=== PATIENT | male | born 1970 | race Two or more races ===

== ENCOUNTER 2021-10-10 13:03 | Outpatient (CLI) | payer MEDICARE, SELFPAY ==
--- NOTE | ~2021-10-10 | US_ITS ---
EXAMINATION: US scrotum doppler EXAM DATE: 10/10/2021 13:39 INDICATION: Testicular lump middle of right and left. History large B-cell lymphoma 2018. Pain at mob ile area. TECHNIQUE: Multiple grayscale and Doppler images of the testicles and scrotum were obtained bilateral ly. Comparison is made to prior examination from 04/10/17. FINDINGS: Right testicle measures 3.4 x 2.6 x 1.9 cm and is morphologically normal. Low resistance Doppler kalpana w confirmed. The epididymis is unremarkable. There is no hydrocele or varicocele. Left testicle measures 2.4 x 2.8 x 2.2 cm and is morphologically normal. Low resistance Doppler flow confirmed. There is a left epididymal cyst measuring 1.6 x 2.6 x 1.1 cm, could be the same epididyma l cyst identified in 2017. There is no hydrocele or varicocele. IMPRESSION: 1. Left epididymal cyst. 2. No suspicious findings. Reviewed, dictated and finalized at location A. 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
== END 2021-10-10 13:04 | disposition home or self-care (01) ==
PROVIDERS: PCP Family Medicine; Visit Provider Internal Medicine Hematology & Oncology
DX: N50.89 Other specified disorders of the male genital organs (principal); N50.3 Cyst of epididymis
CPT/HCPCS: 76870; 93976

== ENCOUNTER 2022-02-13 15:35 | Outpatient (CLI) | payer MEDICARE, SELFPAY ==
--- NOTE | ~2022-02-13 | CT_ITS ---
EXAMINATION: CT chest abdomen pelvis wo con DATE: 02/13/2022 16:05 INDICATION: Non-Hodgkin's lymphoma TECHNIQUE: Computed tomography (CT) of the chest, abdomen, and pelvis was performed without intraveno us contrast. Automated exposure control and iterative reconstruction technique were employed. Exam do se: 1953.52 mGy-cm total exam DLP. COMPARISON: 03/02/2019 CT chest abdomen pelvis FINDINGS: CHEST CT: There is extensive dramatic interval abnormal changes throughout both lungs since 03/02/2019. There is patchy prominent septal soft tissue thickening, particularly in the upper lobes, also peripheral low er lobes, with areas of bronchiectasis and honeycombing in the upper lobes and middle lobe. Up to 11 mm cross-section diameter left superior mediastinal lymph node and scattered additional none nlarged mediastinal lymph nodes, very possibly reactive. Normal caliber of the thoracic aorta. Normal heart size. Moderate sliding hiatal hernia. ABDOMEN/PELVIS CT: The liver, contracted gallbladder and bile ducts are unremarkable. The spleen is absent, likely surgi selina. No pancreatic mass lesion, calcification or ductal dilatation. Normal morphology of the adrenal glands. No renal mass lesion is detected. There is a pinpoint mid renal nonobstructing calculus in the 4 mm lower pole nonobstructing calculus on the left. No ureteral calculus or hydroureteronephrosis is noted on either side. Normal caliber of the abdominal aorta. No intraperitoneal or retroperitoneal or pelvic mass lesion or adenopathy or ascites is detected. The urinary bladder and prostate gland are unremarkable. Diverticulosis of sigmoid and descending colon; no CT evidence of diverticulitis. Normal appendix. No bowel obstruction, bowel wall thickening, pneumatosis or intraperitoneal free air Bilateral L5 pars interarticularis defects with associated grade 1 anterolisthesis at L5-S1. Severe d egenerative disc disease at L5-S1. No suspicious osteolytic or osteosclerotic lesions are identified.. IMPRESSION: New patchy extensive interstitial changes, bronchiectasis and honeycombing scattered thr oughout the lungs since 03/02/2019 11 mm cross-section diameter left superior mediastinal lymph node, possibly reactive. No thoracic, ax illary, abdominal, pelvic or inguinal lymphadenopathy is noted otherwise Status post splenectomy Diverticulosis of the left colon; no CT evidence of diverticulitis Bilateral L5 pars intra-articular is defects with associated grade 1 anterolisthesis and severe degen erative disc disease at L5-S1 Reviewed, dictated and finalized at Location A. Reviewed, dictated and finalized at location A. IMPRESSION: New patchy extensive interstitial changes, bronchiectasis and ligia ycombing scattered throughout the lungs since 03/02/2019 11 mm cross-section diameter left superior mediastinal lymph node, possibly vanesa ctive. No thoracic, axillary, abdominal, pelvic or inguinal lymphadenopathy is noted otherwise Status post splenectomy Diverticulosis of the left colon; no CT evidence of diverticulitis Bilateral L5 pars intra-articular is defects with associated grade 1 anterolist hesis and severe degenerative disc disease at L5-S1
== END 2022-02-13 15:36 | disposition home or self-care (01) ==
LOC: ANHIMG 15:38
PROVIDERS: PCP Family Medicine; Visit Provider Internal Medicine Hematology & Oncology
DX: C85.90 Non-Hodgkin lymphoma, unspecified, unspecified site (principal); R91.8 Other nonspecific abnormal finding of lung field; Z90.81 Acquired absence of spleen; K57.90 Diverticulosis of intestine, part unspecified, without perforation or abscess without bleeding; M43.16 Spondylolisthesis, lumbar region; M51.37 Other intervertebral disc degeneration, lumbosacral region
CPT/HCPCS: 36415; 71250; 74176; 86684; 86706

== ENCOUNTER 2022-02-13 16:21 | Outpatient (CLI) | payer MEDICARE, SELFPAY ==
[2022-02-13 18:10] LABS: Hepatitis B Surface Anti Res Positive
== END 2022-02-13 16:22 | disposition home or self-care (01) ==
LOC: ANHLAB 16:26
PROVIDERS: PCP Family Medicine
DX: Z94.81 Bone marrow transplant status (principal)
CPT/HCPCS: 36415; 86684; 86706

== ENCOUNTER 2022-08-14 14:45 | Outpatient (CLI) | payer MEDICARE, SELFPAY ==
--- NOTE | ~2022-08-14 | CT_ITS ---
EXAMINATION: CT chest abdomen pelvis w con DATE: 08/14/2022 15:26 INDICATION: Diffuse large B-cell lymphoma TECHNIQUE: Transaxial computed tomographic images of the chest, abdomen, and pelvis were obtained aft er the administration of 100 cc of Omnipaque 350 intravenous contrast. The dose-length product (DLP) was 2024.54 mGy-cm. Automated exposure control and iterative reconstruction technique were employed. COMPARISON: 02/13/2022, 03/02/2019 FINDINGS: CHEST CT: Again seen are widespread groundglass and reticular opacities with an upper lung zone predominance. T here is a stable area of honeycombing anteromedially in the left upper lobe. No pleural effusion or p neumothorax. A mildly enlarged prevascular lymph node anterior to the aortic arch is stable in size. The heart size is normal. There is a small sliding hiatal hernia. ABDOMEN/PELVIS CT: There is a moderate-sized sliding hiatal hernia. The liver, pancreas, gallbladder, and adrenal glands are normal. Splenectomy changes are noted. The kidneys are unremarkable. No pathologically enlarged abdominal or pelvic lymph nodes are identified. There is no free intraperitoneal gas or evidence of b owel obstruction. The appendix is normal. Colonic diverticulosis is present without evidence of diver ticulitis. There are bilateral L5 pars defects with grade 1 anterolisthesis of L5 on S1. IMPRESSION: 1. Stable interstitial lung disease, possibly related to chemotherapy. 2. Stable mildly enlarged prevascular lymph node anterior to the aortic arch. Reviewed, dictated and finalized at location L. 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
== END 2022-08-14 14:46 | disposition home or self-care (01) ==
PROVIDERS: PCP Family Medicine; Visit Provider Internal Medicine Hematology & Oncology
DX: C83.32 Diffuse large B-cell lymphoma, intrathoracic lymph nodes (principal)
CPT/HCPCS: 71260; 74177; Q9967

== ENCOUNTER 2022-08-27 12:57 | Outpatient (CLI) | payer MEDICARE, SELFPAY ==
[2022-08-27 13:28] LABS: Basophils Absolute Auto 0.1 K/mm3 (0.0-0.1); Basophils Percent Auto 1.1 % (0.2-1.2); Eosinophils Absolute Auto 0.3 K/mm3 (0-0.3); Eosinophils Percent Auto 2.4 % (0-4.4); Hematocrit 38.3 % (42.0-52.0); Immature Granulocyte Absolute 0.03 K/mm3 (0.00-0.031); Immature Granulocyte Percent A 0.3 % (0-0.5); Lymphocytes Absolute Auto 5.65 K/mm3 (0.9-3.2); Lymphocytes Percent Auto 47.2 % (18.3-44.2); Mean Corpuscular HGB Conc 33.9 g/dl (32-36); Mean Corpuscular Hemoglobin 31.2 pg (26-34); Mean Corpuscular Volume 91.8 fl (80-100); Mean Platelet Volume 10.7 fl (7.4-10.4); Monocytes Absolute Auto 0.6 K/mm3 (0.1-0.6); Monocytes Percent Auto 5.1 % (2.6-8.5); Neutrophils Absolute Auto 5.3 K/mm3 (1.3-6.7); Neutrophils Percent Auto 43.9 % (45.5-73.1); Platelet Count Result 307 k/mm3 (150-375); Red Blood Count 4.17 M/mm3 (4.6-6.20); Red Cell Distribution Width 17.2 % (11.5-14.5)
[2022-08-27 13:36] LABS: Atypical Lymphocytes Present; Platelet Estimate Adequate (Adequate); Schistocytes None Seen (NORMAL)
[2022-08-27 14:00] LABS: Anion Gap 4 mmol/L (8-16); Blood Urea Nitrogen 12 mg/dL (9-20); Carbon Dioxide 31 mmol/L (22-30); Chloride 105 mmol/L (98-107); Estimated Glomerular Filt Rate > 60; Glucose 100 mg/dL (65-110); Potassium 4.1 mmol/L (3.4-5.0); Sodium 140 mmol/L (137-145)
[2022-08-27 14:01] LABS: Alanine Aminotransferase 25 U/L (6-50); Albumin Level 3.8 g/dL (3.5-5.1); Alkaline Phosphatase 107 U/L (38-126); Aspartate Amino Transferase 24 U/L (17-59); Bilirubin,Total 0.4 mg/dL (0.2-1.3); Lactate Dehydrogenase 220 U/L (120-246)
== END 2022-08-27 12:58 | disposition home or self-care (01) ==
PROVIDERS: PCP Family Medicine; Visit Provider Internal Medicine Hematology & Oncology
DX: C83.32 Diffuse large B-cell lymphoma, intrathoracic lymph nodes (principal)
CPT/HCPCS: 36415; 80053; 83615; 85025

== ENCOUNTER 2022-12-16 12:52 | Outpatient (CLI) | payer MEDICARE, SELFPAY ==
[2022-12-16 13:50] LABS: Basophils Absolute Auto 0.1 K/mm3 (0.0-0.1); Basophils Percent Auto 0.6 % (0.2-1.2); Eosinophils Absolute Auto 0.2 K/mm3 (0-0.3); Eosinophils Percent Auto 2.1 % (0-4.4); Hematocrit 43.1 % (42.0-52.0); Immature Granulocyte Absolute 0.04 K/mm3 (0.00-0.031); Immature Granulocyte Percent A 0.4 % (0-0.5); Lymphocytes Absolute Auto 4.08 K/mm3 (0.9-3.2); Lymphocytes Percent Auto 38.6 % (18.3-44.2); Mean Corpuscular HGB Conc 34.8 g/dl (32-36); Mean Corpuscular Hemoglobin 30.9 pg (26-34); Mean Corpuscular Volume 88.9 fl (80-100); Mean Platelet Volume 11.4 fl (7.4-10.4); Monocytes Absolute Auto 0.6 K/mm3 (0.1-0.6); Monocytes Percent Auto 5.7 % (2.6-8.5); Neutrophils Absolute Auto 5.6 K/mm3 (1.3-6.7); Neutrophils Percent Auto 52.6 % (45.5-73.1); Platelet Count Result 260 k/mm3 (150-375); Red Blood Count 4.85 M/mm3 (4.6-6.20); Red Cell Distribution Width 15.9 % (11.5-14.5); White Blood Count 10.6 K/mm3 (4.5-10.0)
[2022-12-16 22:12] LABS: Alanine Aminotransferase 30 U/L (6-50); Alkaline Phosphatase 92 U/L (38-126); Anion Gap 7 mmol/L (8-16); Aspartate Amino Transferase 51 U/L (17-59); Bilirubin,Total 0.3 mg/dL (0.2-1.3); Blood Urea Nitrogen 10 mg/dL (9-20); Calcium 8.5 mg/dL (8.4-10.2); Carbon Dioxide 29 mmol/L (22-30); Chloride 103 mmol/L (98-107); Cholesterol 133 mg/dL (0-200); Estimated Glomerular Filt Rate > 60; Glucose 102 mg/dL (65-110); HDL Direct 29 mg/dL; Lactate Dehydrogenase 259 U/L (120-246); Potassium 3.5 mmol/L (3.4-5.0); Sodium 139 mmol/L (137-145); Triglycerides 93 mg/dL (<150)
[2022-12-16 22:23] LABS: LDL Cholesterol Direct 83 mg/dL
[2022-12-16 22:43] LABS: Prostate Specific Antigen 2.8 ng/mL (< OR = 4.0)
[2022-12-16 23:16] LABS: Hemoglobin A1C 5.5 % (<5.7)
== END 2022-12-16 12:53 | disposition home or self-care (01) ==
LOC: ANHLAB 12:54
PROVIDERS: PCP Family Medicine; Visit Provider Internal Medicine Hematology & Oncology
DX: E55.9 Vitamin D deficiency, unspecified (principal); R73.9 Hyperglycemia, unspecified; E78.5 Hyperlipidemia, unspecified; E53.8 Deficiency of other specified B group vitamins; F32.9 Major depressive disorder, single episode, unspecified; G25.81 Restless legs syndrome; Z12.5 Encounter for screening for malignant neoplasm of prostate
CPT/HCPCS: 36415; 80053; 80061; 82306; 82607; 83036; 83615; 84153; 84443; 85025; G0103

== ENCOUNTER 2023-04-08 13:59 | Outpatient (CLI) | payer MEDICARE, SELFPAY ==
[2023-04-08 19:02] LABS: Basophils Absolute Auto 0.2 K/mm3 (0.0-0.1); Basophils Percent Auto 1.5 % (0.2-1.2); Eosinophils Absolute Auto 0.2 K/mm3 (0-0.3); Eosinophils Percent Auto 1.9 % (0-4.4); Hematocrit 41.9 % (42.0-52.0); Hemoglobin 13.7 g/dL (14.0-18.0); Immature Granulocyte Absolute 0.02 K/mm3 (0.00-0.031); Immature Granulocyte Percent A 0.2 % (0-0.5); Lymphocytes Absolute Auto 5.28 K/mm3 (0.9-3.2); Lymphocytes Percent Auto 44.1 % (18.3-44.2); Mean Corpuscular HGB Conc 32.7 g/dl (32-36); Mean Corpuscular Hemoglobin 30.4 pg (26-34); Mean Corpuscular Volume 93.1 fl (80-100); Mean Platelet Volume 12.4 fl (7.4-10.4); Monocytes Absolute Auto 0.8 K/mm3 (0.1-0.6); Monocytes Percent Auto 6.8 % (2.6-8.5); Neutrophils Absolute Auto 5.4 K/mm3 (1.3-6.7); Neutrophils Percent Auto 45.5 % (45.5-73.1); Platelet Count Result 276 k/mm3 (150-375); Red Cell Distribution Width 16.9 % (11.5-14.5)
== END 2023-04-08 14:00 | disposition home or self-care (01) ==
PROVIDERS: PCP Family Medicine; Visit Provider Nurse Practitioner Family
DX: I10 Essential (primary) hypertension (principal)
CPT/HCPCS: 36415; 85025

== ENCOUNTER → 2023-04-08 14:12 | Outpatient (CLI) | payer MEDICARE, SELFPAY ==
--- NOTE | ~2023-04-08 | XR_ITS ---
EXAMINATION: XR hip LT 2V w AP pelvis INDICATION: Left hip pain TECHNIQUE: AP view the pelvis and two views of the left hip are obtained. COMPARISON: None available FINDINGS: Bone alignment is normal. There is no fracture. There is mild osteoarthritis of the hips. T he soft tissues are unremarkable. IMPRESSION: 1. Mild osteoarthritis without acute osseous abnormality. Reviewed, dictated and finalized at location B.
== END ==
PROVIDERS: PCP Family Medicine; Visit Provider Nurse Practitioner Family
DX: M16.12 Unilateral primary osteoarthritis, left hip (principal); M25.552 Pain in left hip
CPT/HCPCS: 73502

== ENCOUNTER 2023-05-05 13:32 | Outpatient (CLI) | payer MEDICARE, SELFPAY ==
--- NOTE | ~2023-05-05 | CT_ITS ---
Clinical Indication: Lymphoma CT Scan of the Chest, Abdomen, and Pelvis with Contrast: Technique: Contiguous sections were acquired throughout the chest, abdomen, and pelvis after intraven ous administration of 100 cc of Omnipaque 350. Dose reduction technique was used on this scan by blas estrada automated exposure control and iterative reconstruction technique. The dose-length product (DL P) was 1701.35 mGy-cm. COMPARISON: 08/14/2022 Findings: Mildly enlarged anterior mediastinal lymph node is essentially stable from prior exam (axial image 34 ). No other abnormal lymphadenopathy seen in the mediastinum, hilar regions, or axillary regions. Med iastinal vascular structures are unremarkable. Small hiatal hernia noted. There is no evidence of pleural or pericardial effusion. Extensive chronic pulmonary interstitial disease is stable from prior exam, probably worst in the lef t upper lobe. No suspicious pulmonary nodule evident. The liver, pancreas, gallbladder, adrenals and kidneys are within normal limits. Patient is status po st splenectomy. No evidence of aortic aneurysm. No lymphadenopathy. No bowel obstruction or bowel wall thickening. There is no evidence to suggest acute appendicitis. Urinary bladder is unremarkable. No pelvic mass identified. No ascites. Bilateral L5 pars interarticu fred defects are present, with 6 mm anterolisthesis of L5 over S1. Impression: Single, stable mildly enlarged anterior mediastinal/prevascular lymph node in the upper mediastinum. No lymphadenopathy identified. Extensive chronic pulmonary interstitial disease, unchanged. L5 pars interarticularis defects, as detailed above. Reviewed, dictated and finalized at [facility]. Impression: Single, stable mildly enlarged anterior mediastinal/prevascular lymph node in t he upper mediastinum. No lymphadenopathy identified. Extensive chronic pulmonary interstitial disease, unchanged. L5 pars interarticularis defects, as detailed above.
== END 2023-05-05 13:33 | disposition home or self-care (01) ==
PROVIDERS: PCP Family Medicine; Visit Provider Internal Medicine Hematology & Oncology
DX: C83.32 Diffuse large B-cell lymphoma, intrathoracic lymph nodes (principal); J84.9 Interstitial pulmonary disease, unspecified; M43.06 Spondylolysis, lumbar region
CPT/HCPCS: 71260; 74177; Q9967

== ENCOUNTER 2023-05-20 01:30 | Day surgery (SDC) | payer MEDICARE, SELFPAY ==
[2023-04-15 10:04] VITALS: BMI 41.4
--- NOTE | 2023-05-12 16:01 | PC.NURSE ---
Verified with patient of new date and time of procedure, per patient no changes in medication or medical history.
[2023-05-20 10:56] VITALS: BP 132/83; PULSE 86; RESP 16; TEMP 36.1; O2SAT 97; BMI 39.9
[2023-05-20] MEDS: LACTATED RINGERS 1,000 ML 150 ML IV CONT (11:19)
--- NOTE | 2023-05-20 11:25 | PM.HPGS ---
History of Present Illness History of Present Illness Consent: Risks, benefits, and alternatives have been discussed and questions answered. Patient agrees to proceed with procedure. Chief complaint: hx colon polyps Narrative: Marcello Guillen is a 53 year old male Referred for screening colonoscopy. Patient followed by Dr. Nuñez. Patient reports a prior history of colon polyps 10 years ago in [place]. Patient apparently had polyps but was told 10 year follow-up was appropriate his polyps were noncancerous. Patient has been followed by Oncology with a history of lymphoma. He states this is felt to be cured and in remission. Patient denies any blood in his stools. He denies abdominal pain. Patient referred for colonoscopy. No records from oncology nor previous colonoscopy are available for review. Family history is noncontributory. Review of Systems Review of Systems: Review of systems noncontributory. [facility] Past Medical History Medical History (Updated 05/20/23 @ 11:28 by Bill Caraballo MD) Anxiety Depression History of colon polyps Hypoxia Incisional hernia Kidney stones Lymphedema due to malignant neoplasm Marginal zone lymphoma MRSA (methicillin resistant staph aureus) culture positive (~10/2017) Osteoarthritis RLS (restless legs syndrome) Thrombosis of right internal jugular vein Surgical History Surgical History (Updated 04/16/23 @ 15:20 by Susan Junior) H/O splenectomy (~08/2019) History of bone marrow transplant 2019 at [facility] History of repair of ACL 2007 History of skin graft on R hand in 1975 Hx of tonsillectomy (~1975) Social History Social History Social History: QUIT CIGARETTES 2000 QUIT 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 2004 Smoking packs per day: 1.5 Smoking cigarettes per day: 30.0 Years smoked: 25 Smoking pack-years: 37.50 Smoking status: Former smoker Tobacco type: cigarettes and smokeless tobacco Smoking end date: 08/04/04 Alcohol intake: current Substance use: current Substance use type: marijuana Other substance usage details: CBD Edibles Last use: 04/15/23 Lack of Transportation: No Lack of Food: Never True Current Housing: I Have Housing Concerned About Future Housing: No Difficulty Paying Gas/Electric Bills: YES Difficulty Paying for Meds: YES Currently Unemployed: No Education: Grade School Difficulty w/ Childcare or Family Care: No Living arrangements: alone Additional living arrangements comments: Sister Occupation/Education: other Additional occupation/education comments: Disability Gender identity (if verbalized by the patient): Male Meds Home Medications and Allergies Home Medications Medication Instructions Recorded Confirmed Type ascorbic acid (vitamin C) 500 mg 1,000 mg PO DAILY 05/21/19 05/20/23 History tablet multivitamin 2 tablet PO DAILY 05/21/19 05/20/23 History albuterol sulfate 90 mcg/actuation 1 puff inhalation Q4H PRN 06/22/20 05/20/23 History aerosol inhaler Shortness Of Breath penicillin V potassium 250 mg 250 mg PO Q12H 06/22/20 05/20/23 History tablet budesonide-formoterol HFA 160 2 puff inhalation Q12H 08/29/21 05/20/23 History mcg-4.5 mcg/actuation aerosol inhaler acyclovir 400 mg tablet 800 mg PO BID 02/26/22 05/20/23 History cholecalciferol (vitamin D3) 50 50 mcg PO DAILY #90 tabs 12/17/22 05/20/23 Rx mcg (2,000 unit) tablet cyanocobalamin (vitamin B-12) 1,000 mcg sublingual DAILY #90 tabs 12/17/22 05/20/23 Rx 1,000 mcg sublingual tablet hydrocodone 5 mg-acetaminophen 325 1 tablet PO BID PRN pain #30 tabs 04/08/23 05/20/23 Rx mg tablet clonazepam 2 mg tablet 2 mg PO DAILY 04/09/23 05/20/23 History escitalopram oxalate 20 mg tablet 20 mg PO DAILY #30 tabs 04/24/23 05/20/23 Rx ropinirole 5 mg tablet 5 mg PO QHS #90 tabs 04/25/23 05/20/23 Rx Allergies Allergy/AdvReac Type Severity Reaction
--- NOTE | 2023-05-20 11:30 | WPDANESEPPF ---
Anes - Initial Pre Proc Eval Procedure: Operation Date: 05/20/23 12:30 Proposed Procedures p Colonoscopy - Bill Caraballo MD Date/Time: 05/20/23 11:30 Surgeon: Bill Caraballo MD Pre Op Diagnosis: hx colon polyps Patient Data Age: 53 Gender: M Height: 1.7 m Weight: 115.8 kg Last Vital Signs Temp 97.0 F L 05/20/23 10:56 Pulse 86 05/20/23 10:56 Resp 16 05/20/23 10:56 BP 132/83 05/20/23 10:56 Pulse Ox 97 05/20/23 10:56 O2 Del Method Room Air 05/20/23 10:56 Allergies Allergy/AdvReac Type Severity Reaction Status Date / Time adhesive Allergy Unknown Rash Verified 05/20/23 11:06 Home Medications Medication Instructions Recorded Confirmed Type ascorbic acid (vitamin C) 500 mg 1,000 mg PO DAILY 05/21/19 05/20/23 History tablet multivitamin 2 tablet PO DAILY 05/21/19 05/20/23 History albuterol sulfate 90 mcg/actuation 1 puff inhalation Q4H PRN 06/22/20 05/20/23 History aerosol inhaler Shortness Of Breath penicillin V potassium 250 mg 250 mg PO Q12H 06/22/20 05/20/23 History tablet budesonide-formoterol HFA 160 2 puff inhalation Q12H 08/29/21 05/20/23 History mcg-4.5 mcg/actuation aerosol inhaler acyclovir 400 mg tablet 800 mg PO BID 02/26/22 05/20/23 History cholecalciferol (vitamin D3) 50 50 mcg PO DAILY #90 tabs 12/17/22 05/20/23 Rx mcg (2,000 unit) tablet cyanocobalamin (vitamin B-12) 1,000 mcg sublingual DAILY #90 tabs 12/17/22 05/20/23 Rx 1,000 mcg sublingual tablet hydrocodone 5 mg-acetaminophen 325 1 tablet PO BID PRN pain #30 tabs 04/08/23 05/20/23 Rx mg tablet clonazepam 2 mg tablet 2 mg PO DAILY 04/09/23 05/20/23 History escitalopram oxalate 20 mg tablet 20 mg PO DAILY #30 tabs 09/21/23 10/17/23 Rx ropinirole 5 mg tablet 5 mg PO QHS #90 tabs 04/25/23 05/20/23 Rx Patient hx anesthesia problems: none Family hx anesthesia problems: none Results Review: All pre-operative results and documents have been reviewed as part of the pre-operative evaluation. [facility] Past Medical History Medical History (Updated 05/20/23 @ 11:28 by Bill Caraballo MD) Anxiety Depression History of colon polyps Hypoxia Incisional hernia Kidney stones Lymphedema due to malignant neoplasm Marginal zone lymphoma MRSA (methicillin resistant staph aureus) culture positive (~10/2017) Osteoarthritis RLS (restless legs syndrome) Thrombosis of right internal jugular vein Surgical History Surgical History (Updated 04/16/23 @ 15:20 by Susan Junior) H/O splenectomy (~08/2019) History of bone marrow transplant 2019 at [facility] History of repair of ACL 2007 History of skin graft on R hand in 1975 Hx of tonsillectomy (~1975) Social History Social History Social History: QUIT CIGARETTES 2000 QUIT 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 2004 Smoking packs per day: 1.5 Smoking cigarettes per day: 30.0 Years smoked: 25 Smoking pack-years: 37.50 Smoking status: Former smoker Tobacco type: cigarettes and smokeless tobacco Smoking end date: 08/04/04 Alcohol intake: current Substance use: current Substance use type: marijuana Other substance usage details: CBD Edibles Last use: 04/15/23 Lack of Transportation: No Lack of Food: Never True Current Housing: I Have Housing Concerned About Future Housing: No Difficulty Paying Gas/Electric Bills: YES Difficulty Paying for Meds: YES Currently Unemployed: No Education: Grade School Difficulty w/ Childcare or Family Care: No Living arrangements: alone Additional living arrangements comments: Sister Occupation/Education: other Additional occupation/education comments: Disability Gender identity (if verbalized by the patient): Male Anes - Eval Final PreProcedure Day of Procedure 05/20/23 11:30 Patient weight: morbidly obese Heart: regular rate and rhythm Lungs: clear to auscultation Airway: Mallampati scale class III Neurol
[2023-05-20] MEDS: SIMETHICONE ORAL SUSPENSION 20 MG/0.3 ML 30 ML BOTTLE 0.6 ML IRRIGATION (13:39)
[2023-05-20 13:51] VITALS: BP 99/59; PULSE 71; RESP 20; O2SAT 95
[2023-05-20 14:01] VITALS: BP 102/66; PULSE 66; RESP 16; O2SAT 96
[2023-05-20 14:11] VITALS: BP 125/78; PULSE 66; RESP 20; O2SAT 98
== END 2023-05-20 14:30 | disposition home or self-care (01) ==
PROVIDERS: PCP Family Medicine; Visit Provider Internal Medicine Gastroenterology
PROC: 0DJD8ZZ Inspection of Lower Intestinal Tract, Via Natural or Artificial Opening Endoscopic (ICD-10-PCS; CPT 45378; principal; 2023-05-20 12:30)
DX: Z12.11 Encounter for screening for malignant neoplasm of colon (principal); K64.8 Other hemorrhoids; K57.30 Diverticulosis of large intestine without perforation or abscess without bleeding; Z86.010 Personal history of colon polyps; F41.9 Anxiety disorder, unspecified; F32.A Depression, unspecified; G25.81 Restless legs syndrome; Z79.51 Long term (current) use of inhaled steroids; Z79.891 Long term (current) use of opiate analgesic; Z85.72 Personal history of non-Hodgkin lymphomas; F12.90 Cannabis use, unspecified, uncomplicated; Z87.891 Personal history of nicotine dependence; E66.01 Morbid (severe) obesity due to excess calories; Z68.41 Body mass index [BMI] 40.0-44.9, adult
CPT/HCPCS: G0105; J2704; J7120

== ENCOUNTER 2023-10-20 06:40 | Outpatient (CLI) | payer MEDICARE, SELFPAY ==
--- NOTE | ~2023-10-20 | CT_ITS ---
EXAMINATION: CT chest abdomen pelvis w con DATE: 10/20/2023 07:20 INDICATION: Non-Hodgkin's lymphoma TECHNIQUE: Computed tomography (CT) of the chest, abdomen and pelvis was performed with 100 CC Omnipa que 350 intravenous contrast. Automated exposure control and iterative reconstruction technique were employed. Exam dose: 1707.96 mGy-cm total exam DLP. COMPARISON: 05/05/2023 CT chest abdomen pelvis FINDINGS: Slight interval enlargement of left prevascular lymph node, currently measuring approximate ly 12.5 x 22 mm compared to 11.6 x 20.7 mm on 05/05/2023. No hilar or mediastinal mass lesion or lymphadenopathy is noted otherwise. No thoracic aortic aneurysm or dissection. Normal heart size. No pericardial or pleural effusion. There is chronic severe pulmonary fibrotic change, particularly severe in the upper lobes, with honey combing especially in the left upper lobe anterior segment. Emphysematous changes. No pulmonary consolidation is noted. Small sliding hiatal hernia. The liver, gallbladder, bile ducts, venous pancreas and pancreatic duct are unremarkable. Status post splenectomy. Normal morphology of the adrenal glands. Mild scarring along the inferolateral aspect of the right kidney. No renal mass lesions, urinary trac t calculus or hydroureteronephrosis. The urinary bladder, prostate gland and seminal vesicles appear unremarkable. Normal caliber of the abdominal aorta. No intraperitoneal or retroperitoneal or pelvic mass lesion or adenopathy or ascites is detected. Diverticulosis of the sigmoid and descending colon; no CT evidence of diverticulitis. Normal appendix . No bowel obstruction, bowel wall thickening, pneumatosis or intraperitoneal free air is detected. Bilateral L5 pars interarticularis defects with associated borderline grade 1/grade 2 anterolisthesis at L5-S1. Minimal likely chronic anterior wedging of T10, T11 and T12 vertebral bodies. Avascular necrosis of the left femoral head. 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 Reviewed, dictated and finalized at [facility]. 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
== END 2023-10-20 06:41 | disposition home or self-care (01) ==
LOC: ANHIMG 06:46
PROVIDERS: PCP Family Medicine; Visit Provider Internal Medicine Hematology & Oncology
DX: C85.90 Non-Hodgkin lymphoma, unspecified, unspecified site (principal); R59.0 Localized enlarged lymph nodes; J43.9 Emphysema, unspecified; Z90.81 Acquired absence of spleen; K44.9 Diaphragmatic hernia without obstruction or gangrene; K57.30 Diverticulosis of large intestine without perforation or abscess without bleeding; M51.86 Other intervertebral disc disorders, lumbar region; M47.817 Spondylosis without myelopathy or radiculopathy, lumbosacral region
CPT/HCPCS: 36415; 71260; 74177; 80053; 83615; 85025; Q9967

== ENCOUNTER 2024-01-13 08:12 | Outpatient (CLI) | payer MEDICARE, SELFPAY ==
--- NOTE | ~2024-01-13 | CT_ITS ---
Clinical Indication: Non-Hodgkin's lymphoma CT Scan of the Chest, Abdomen, and Pelvis with Contrast: Technique: Contiguous sections were acquired throughout the chest, abdomen, and pelvis after intraven ous administration of 100 cc of Omnipaque 350. Dose reduction technique was used on this scan by blas estrada automated exposure control and iterative reconstruction technique. The dose-length product (DL P) was 1913.10 mGy-cm. COMPARISON: 10/20/2023 Findings: Stable mildly enlarged anterior mucinous/prevascular lymph node. No new lymphadenopathy seen in the c hest or axillary regions. No aortic aneurysm or dissection. No large central pulmonary embolus seen. There is no evidence of pleural or pericardial effusion. Extensive severe chronic interstitial disease is similar to prior exam. No suspicious pulmonary nodul e. The liver, pancreas, gallbladder, left adrenal gland, and kidneys are within normal limits. Stable pr obable right adrenal myelolipoma. Status post splenectomy. No evidence of aortic aneurysm. No lympha denopathy. Small hiatal hernia present. No bowel obstruction or bowel wall thickening. There is no evidence to s uggest acute appendicitis. Urinary bladder is unremarkable. No pelvic mass seen. No ascites. Bilateral L5 pars interarticularis defects are present, with grade 1 anterolisthesis of L5 over S1. Impression: Stable large anterior mediastinal/prevascular lymph node. No new lymphadenopathy seen. Stable extensive chronic interstitial pulmonary disease. Small hiatal hernia. Reviewed, dictated and finalized at [facility]. Impression: Stable large anterior mediastinal/prevascular lymph node. No new lymphadenopath y seen. Stable extensive chronic interstitial pulmonary disease. Small hiatal hernia.
== END 2024-01-13 08:13 | disposition home or self-care (01) ==
LOC: ANHIMG 08:19
PROVIDERS: PCP Family Medicine; Visit Provider Internal Medicine Hematology & Oncology
DX: C85.90 Non-Hodgkin lymphoma, unspecified, unspecified site (principal); J84.9 Interstitial pulmonary disease, unspecified; K44.9 Diaphragmatic hernia without obstruction or gangrene
CPT/HCPCS: 71260; 74177; Q9967

== ENCOUNTER 2024-02-23 09:54 | Outpatient (CLI) | payer MEDICARE, SELFPAY ==
[2024-02-23 10:30] LABS: Basophils Absolute Auto 0.1 K/mm3 (0.0-0.1); Basophils Percent Auto 1.3 % (0.2-1.2); Eosinophils Absolute Auto 0.3 K/mm3 (0-0.3); Eosinophils Percent Auto 3.2 % (0-4.4); Hematocrit 40.9 % (42.0-52.0); Hemoglobin 13.8 g/dL (14.0-18.0); Immature Granulocyte Absolute 0.02 K/mm3 (0.00-0.031); Immature Granulocyte Percent A 0.2 % (0-0.5); Lymphocytes Absolute Auto 5.14 K/mm3 (0.9-3.2); Lymphocytes Percent Auto 48.4 % (18.3-44.2); Mean Corpuscular HGB Conc 33.7 g/dl (32-36); Mean Corpuscular Hemoglobin 31.3 pg (26-34); Mean Corpuscular Volume 92.7 fl (80-100); Mean Platelet Volume 11.3 fl (7.4-10.4); Monocytes Absolute Auto 0.6 K/mm3 (0.1-0.6); Monocytes Percent Auto 5.9 % (2.6-8.5); Neutrophils Absolute Auto 4.3 K/mm3 (1.3-6.7); Platelet Count Result 315 k/mm3 (150-375); Red Blood Count 4.41 M/mm3 (4.6-6.20); Red Cell Distribution Width 16.4 % (11.5-14.5); White Blood Count 10.6 K/mm3 (4.5-10.0)
[2024-02-23 12:46] LABS: Alanine Aminotransferase 22 U/L (6-50); Albumin Level 4.2 g/dL (3.5-5.1); Alkaline Phosphatase 95 U/L (38-126); Anion Gap 9 mmol/L (4-12); Aspartate Amino Transferase 24 U/L (17-59); Bilirubin,Total 0.3 mg/dL (0.2-1.3); Blood Urea Nitrogen 13 mg/dL (9-20); Calcium 9.5 mg/dL (8.4-10.2); Carbon Dioxide 29 mmol/L (22-30); Chloride 102 mmol/L (98-107); Estimated Glomerular Filt Rate > 60; Glucose 109 mg/dL (65-110); Lactate Dehydrogenase 225 U/L (120-246); Potassium 4.8 mmol/L (3.4-5.0); Sodium 140 mmol/L (137-145)
== END 2024-02-23 09:55 | disposition home or self-care (01) ==
LOC: ANHLAB 09:56
PROVIDERS: PCP Family Medicine; Visit Provider Internal Medicine Hematology & Oncology
DX: C85.90 Non-Hodgkin lymphoma, unspecified, unspecified site (principal)
CPT/HCPCS: 36415; 80053; 83615; 85025

== ENCOUNTER 2024-05-28 12:51 | Outpatient (CLI) | payer OTHER, SELFPAY ==
[2024-05-28 11:41] LABS: Basophils Absolute Auto 0.2 K/mm3 (0.0-0.1); Basophils Percent Auto 1.6 % (0.2-1.2); Eosinophils Absolute Auto 0.3 K/mm3 (0-0.3); Hematocrit 39.9 % (42.0-52.0); Hemoglobin 13.9 g/dL (14.0-18.0); Immature Granulocyte Absolute 0.02 K/mm3 (0.00-0.031); Immature Granulocyte Percent A 0.2 % (0-0.5); Lymphocytes Absolute Auto 5.04 K/mm3 (0.9-3.2); Lymphocytes Percent Auto 46.3 % (18.3-44.2); Mean Corpuscular HGB Conc 34.8 g/dl (32-36); Mean Corpuscular Hemoglobin 31.7 pg (26-34); Mean Corpuscular Volume 90.9 fl (80-100); Mean Platelet Volume 10.5 fl (7.4-10.4); Monocytes Absolute Auto 0.9 K/mm3 (0.1-0.6); Neutrophils Absolute Auto 4.5 K/mm3 (1.3-6.7); Neutrophils Percent Auto 40.9 % (45.5-73.1); Platelet Count Result 303 k/mm3 (150-375); Red Blood Count 4.39 M/mm3 (4.6-6.20); Red Cell Distribution Width 15.1 % (11.5-14.5); White Blood Count 10.9 K/mm3 (4.5-10.0)
[2024-05-28 11:46] LABS: Blood Urea Nitrogen 12 mg/dL (8-26); Carbon Dioxide 26 mmol/L (22-30); Chloride 105 mmol/L (98-109); Estimated Glomerular Filt Rate > 60; Glucose 83 mg/dL (70-105); Ionized Calcium (POC) 1.24 mmol/L (1.11-1.31); Potassium 4.4 mmol/L (3.5-4.9); Sodium 139 mmol/L (138-146)
--- NOTE | 2024-05-28 13:05 | ECG_ITS ---
Test Date: 2024-05-28 13:30:35 Measurements Intervals [place] Rate: 66 P: 21 TX: 148 QRS: 42 QRSD: 88 T: 40 QT: 389 QTc: 408 Interpretive Statements SINUS RHYTHM LOW QRS VOLTAGE IN EXTREMITY LEADS [QRS DEFLECTION < 0.5 mV IN LIMB LEADS] No previous ECG available for comparison Electronically Signed On 05-28-2024 15:40:27 CDT by Varun Crouch M.D.
[2024-05-28 13:20] LABS: Add Urine Microscopic? YES; Appearance Urine Clear (Clear); Bacteria Urine None Seen /hpf; Bilirubin Urine Negative (Negative); Blood Urine Negative (Negative); Color Urine Yellow (Yellow); Glucose Urine UA Negative (Negative); Ketones Urine Trace mg/dL (Negative); Leukocyte Esterase Ur 1+ LEU/UL (Negative); Need Manual Microscopic Reviewed; Nitrate Urine Negative (Negative); Non Pathogenic Casts 0-2; Protein Urine Negative (Negative); Specific Grav Ur 1.022 (1.001-1.035); Squamous Epithelial Cell Urine None Seen /hpf (Few); WBC Urine 0-5 /hpf (0-3)
[2024-05-28 13:37] LABS: Alanine Aminotransferase 20 U/L (6-50); Albumin Level 4.2 g/dL (3.5-5.1); Alkaline Phosphatase 91 U/L (38-126); Anion Gap 10 mmol/L (4-12); Aspartate Amino Transferase 25 U/L (17-59); Bilirubin,Total 0.2 mg/dL (0.2-1.3); Blood Urea Nitrogen 13 mg/dL (9-20); Calcium 9.4 mg/dL (8.4-10.2); Carbon Dioxide 25 mmol/L (22-30); Chloride 105 mmol/L (98-107); Estimated Glomerular Filt Rate > 60; Glucose 83 mg/dL (65-110); Lactate Dehydrogenase 214 U/L (120-246); Potassium 4.4 mmol/L (3.4-5.0); Sodium 140 mmol/L (137-145)
== END 2024-05-28 12:52 | disposition home or self-care (01) ==
PROVIDERS: PCP Family Medicine; Referring Provider Internal Medicine Hematology & Oncology; Visit Provider Orthopaedic Surgery
DX: I10 Essential (primary) hypertension (principal); R53.83 Other fatigue; C83.32 Diffuse large B-cell lymphoma, intrathoracic lymph nodes
CPT/HCPCS: 36415; 80047; 80053; 81001; 83615; 85025; 87086; 93005

== ENCOUNTER 2024-06-01 15:18 | Outpatient (CLI) | payer OTHER, SELFPAY ==
--- NOTE | ~2024-06-01 | XR_ITS ---
XR cervical spine 4-5V Ordering provider: Joey Nuñez MD History: . M54.12 - Radiculopathy, cervical region . Comparison: None. FINDINGS: Artifacts are projected over C2. VERTEBRAL BODIES: Normal height and alignment. No visible fracture or subluxation. The dens is intact . DISK SPACES: Narrowing of the disc C5-C6 is noted.. PARASPINOUS SOFT TISSUES: No prevertebral soft tissue swelling. IMPRESSION: No acute osseous abnormality cervical spine. Reviewed, dictated and finalized at location [facility].
== END 2024-06-01 15:19 | disposition home or self-care (01) ==
LOC: GOSHIMG 15:20
PROVIDERS: PCP Family Medicine; Visit Provider Family Medicine
DX: M54.12 Radiculopathy, cervical region (principal)
CPT/HCPCS: 72050

== ENCOUNTER 2024-08-02 12:57 | Outpatient (CLI) | payer OTHER, SELFPAY ==
[2024-08-02 14:25] LABS: Basophils Absolute Auto 0.1 K/mm3 (0.0-0.1); Basophils Percent Auto 1.2 % (0.2-1.2); Eosinophils Absolute Auto 0.5 K/mm3 (0-0.3); Eosinophils Percent Auto 4.4 % (0-4.4); Hemoglobin 14.9 g/dL (14.0-18.0); Immature Granulocyte Absolute 0.03 K/mm3 (0.00-0.031); Immature Granulocyte Percent A 0.3 % (0-0.5); Lymphocytes Absolute Auto 5.58 K/mm3 (0.9-3.2); Lymphocytes Percent Auto 49.5 % (18.3-44.2); Mean Corpuscular HGB Conc 34.7 g/dl (32-36); Mean Corpuscular Hemoglobin 31.1 pg (26-34); Mean Corpuscular Volume 89.8 fl (80-100); Mean Platelet Volume 10.6 fl (7.4-10.4); Monocytes Absolute Auto 0.7 K/mm3 (0.1-0.6); Neutrophils Absolute Auto 4.4 K/mm3 (1.3-6.7); Neutrophils Percent Auto 38.6 % (45.5-73.1); Platelet Count Result 322 k/mm3 (150-375); Red Blood Count 4.79 M/mm3 (4.6-6.20); Red Cell Distribution Width 15.3 % (11.5-14.5); White Blood Count 11.3 K/mm3 (4.5-10.0)
[2024-08-02 14:30] LABS: Add Urine Microscopic? YES; Appearance Urine Clear (Clear); Bacteria Urine None Seen /hpf; Bilirubin Urine Negative (Negative); Blood Urine Negative (Negative); Color Urine Yellow (Yellow); Glucose Urine UA Negative (Negative); Ketones Urine Trace mg/dL (Negative); Leukocyte Esterase Ur Negative LEU/UL (Negative); Nitrate Urine Negative (Negative); Non Pathogenic Casts 0-2; Protein Urine Trace mg/dL (Negative); RBC Urine 0-2 /hpf (0-2); Specific Grav Ur 1.023 (1.001-1.035); Squamous Epithelial Cell Urine None Seen /hpf (Few); Urobilinogen Urine 0.2 mg/dL (<2.0); WBC Urine 0-5 /hpf (0-3)
[2024-08-02 14:32] LABS: Albumin Level 4.2 g/dL (3.5-5.1); Anion Gap 3 mmol/L (4-12); Blood Urea Nitrogen 16 mg/dL (9-20); Calcium 9.5 mg/dL (8.4-10.2); Carbon Dioxide 24 mmol/L (22-30); Chloride 109 mmol/L (98-107); Estimated Glomerular Filt Rate > 60; Glucose 88 mg/dL (65-110); Potassium 4.5 mmol/L (3.4-5.0); Sodium 136 mmol/L (137-145)
[2024-08-02 14:35] LABS: INR 0.9; Prothrombin Time 12.7 Seconds (11.1-14.7)
[2024-08-02 14:36] LABS: Partial Thromboplastin Time 30.6 Seconds (22.3-36.8)
[2024-08-02 14:48] LABS: Urine Cotinine NEGATIVE
[2024-08-02 14:49] LABS: Hemoglobin A1C 5.6 % (<5.7)
[2024-08-03 09:54] LABS: MRSA (PCR) DETECTED (NOT DETECTE)
== END 2024-08-02 12:58 | disposition home or self-care (01) ==
LOC: ANHSURGERY 13:03
PROVIDERS: PCP Family Medicine; Visit Provider Orthopaedic Surgery
DX: Z01.812 Encounter for preprocedural laboratory examination (principal); M16.12 Unilateral primary osteoarthritis, left hip
CPT/HCPCS: 80048; 80307; 81001; 82040; 83036; 85025; 85610; 85730; 86850; 86900; 86901; 87641

== ENCOUNTER 2024-08-11 00:35 | Day surgery (SDC) | payer MEDICARE, SELFPAY ==
[2024-08-02 13:20] VITALS: BP 135/98; PULSE 85; RESP 16; TEMP 36.5; O2SAT 95; BMI 36.8
--- NOTE | 2024-08-02 13:47 | PC.NURSE ---
Report to the Outpatient Waiting Room, entrance under the green pavilion located off [facility], at time __06:00am on date __08/11/24 . Planned Procedure Time: __07:30am .? Time changes happen often and if your time is changed the preop area will call you the afternoon before. - You and your visitor will be asked to self-screen and do not enter if you have any COVID symptoms. Please call surgeon if you need to reschedule. - A mask is optional within the hospital at this time. Patients may have clear liquids (water, carbonated beverages, clear teas, apple juice) until 3 hours prior to surgery with a maximum of 20 ounces. - No food from midnight until time of surgery and no smoking. This includes no chewing gum, candy or mints.(04:30am) Take only the following medications with a SIP of water on the morning of surgery: __Acyclovoir, Escitalopram, Hydrocodone and albuteral/Inhalers as needed DO NOT STOP ANY OF YOUR OTHER PRESCRIPTION MEDICATIONS PRIOR TO SURGERY EXCEPT THE FOLLOWING Medications to discontinue per physician ___Hold Meloxicam for [address] Lu Date to take last dose__08/03/24 Hold all vitamins and supplements for 3 days prior per Anesthesia. Date to take last dose 08/07/23 Please no make-up, nail niuean, hairspray, perfume, deodorant, or body powder the day of surgery.? No jewelry (including any body piercings) or valuables the day of surgery, leave them at home.? Please take a shower or bath the night before, or the morning of, surgery with an antibacterial soap. Scrub Per Dr Tabitha De Jesus. ? Wear comfortable, loose fitting clothing.? Pt is refusing to take out his eye jewelry at present. - Jewelry must be removed prior to entering the operating room.? Rings and piercings that are not removed may be cut off. - The hospital will not accept responsibility for valuables.? - Please leave all valuables, including medications, at home the day of surgery. If you are going home after surgery, a licensed front end driver must drive you home.? - NO public transportation without another adult if you receive anesthesia. - We recommend that an adult stay with you for 24 hours following discharge. - We also recommend that you do not drive, make important decision, drink alcoholic beverages, or take any drugs that were not prescribed by your health care provider for at least 24 hours after your discharge time. Follow any additional instructions given to you from your surgeon. Telephone instructions given to _Patient and asked if any additional questions and then verbalized understanding. Patient advised to call surgeon office or pre surgery nurse liaison [phone] if any additional questions.
--- NOTE | 2024-08-10 12:23 | WPDANESEPPF ---
Anes - Initial Pre Proc Eval Procedure: Operation Date: 08/11/24 07:30 Proposed Procedures p Left Total Hip Arthroplasty - Chandana Lu MD Date/Time: 08/10/24 12:23 Surgeon: Chandana Lu MD Pre Op Diagnosis: Lt Hip DJD Patient Data Age: 54 Gender: M Height: 1.73 m Weight: 109.8 kg Last Vital Signs Temp 97.7 F 08/02/24 13:20 Pulse 85 08/02/24 13:20 Resp 16 08/02/24 13:20 BP 135/98 H 08/02/24 13:20 Pulse Ox 95 08/02/24 13:20 O2 Del Method Room Air 08/02/24 13:20 Allergies Allergy/AdvReac Type Severity Reaction Status Date / Time adhesive Allergy Unknown Rash Verified 08/11/24 07:19 plastic tape Allergy Severe hives Uncoded 08/11/24 07:19 Home Medications ?Medication ?Instructions ?Recorded ?Confirmed ?Type ascorbic acid (vitamin C) 500 mg 1,000 mg PO DAILY 05/21/19 08/02/24 History tablet multivitamin 1 tablet PO DAILY 05/21/19 08/02/24 History albuterol sulfate 90 mcg/actuation 1 puff inhalation Q4H PRN 05/19/24 08/02/24 Rx aerosol inhaler Shortness Of Breath #8.5 grams budesonide-formoterol HFA 160 2 puff inhalation Q12H #30.6 grams 05/19/24 08/02/24 Rx mcg-4.5 mcg/actuation aerosol inhaler cholecalciferol (vitamin D3) 50 50 mcg PO DAILY #90 tabs 05/19/24 08/02/24 Rx mcg (2,000 unit) tablet clonazepam 2 mg tablet 2 mg PO QHS #90 tabs 05/19/24 08/02/24 Rx cyanocobalamin (vitamin B-12) 1,000 mcg sublingual DAILY #90 tabs 05/19/24 08/02/24 Rx 1,000 mcg sublingual tablet omeprazole 20 mg capsule,delayed 20 mg PO DAILY #90 caps 05/19/24 08/02/24 Rx release ropinirole 5 mg tablet 5 mg PO QHS #90 tabs 05/19/24 08/02/24 Rx acyclovir 200 mg capsule 200 mg PO BID 05/27/24 08/11/24 History meloxicam 7.5 mg tablet 7.5 mg PO BID #180 tabs 06/22/24 08/11/24 Rx penicillin V potassium 250 mg 250 mg PO Q12H #180 tabs 07/15/24 08/11/24 Rx tablet chlorhexidine gluconate 4 % 1 applic topical DAILY #237 mL 07/26/24 08/02/24 Rx topical liquid (Hibiclens) mupirocin 2 % topical ointment 1 applic topical BID #15 grams 08/05/24 Rx escitalopram oxalate 20 mg tablet 20 mg PO DAILY #90 tabs 08/10/24 Rx hydrocodone 5 mg-acetaminophen 325 1 tablet PO BID PRN pain #30 tabs 08/10/24 Rx mg tablet Patient hx anesthesia problems: none Family hx anesthesia problems: none Results Review: All pre-operative results and documents have been reviewed as part of the pre-operative evaluation. 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 Osteoarthritis Anxiety Depression Marginal zone lymphoma (~04/2017) RLS (restless legs syndrome) Hypoxia MRSA (methicillin resistant staph aureus) culture positive (~10/2017) Surgical History Surgical History History of skin graft on R hand in 1975 History of repair of ACL 2007 History of bone marrow transplant 2019 at [facility] Hx of tonsillectomy (~1975) H/O splenectomy (~08/2019) Social History Social History Social History: QUIT CIGARETTES 2000 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 Smoking packs per day: 1.5 Smoking cigarettes per day: 30.0 Years smoked: 25 Smoking pack-years: 37.50 Smoking status: Former smoker Tobacco type: cigarettes and smokeless tobacco Smoking end date: 08/04/06 Alcohol intake: current Substance use: current Substance use type: marijuana Other substance usage details: CBD Edibles Last use: 04/15/23 Lack of Transportation: No Lack of Food: Never True Current Housing: I Have Housing Concerned About Future Housing: No Difficulty Paying Gas/Electric Bills: YES Difficulty Paying for Meds: YES Currently Unemployed: No Education: Grade School Difficulty w/ Childcare or Family Care: No Living arrangements: alone Additional living arrangements comments: Sister Occupation/Education: other Additional occupation/education comments: Disability Gender identity (if verbalized by the patient): Male Spiritual care concerns: No Anes - Eval Final PreProcedure Day of Procedure 08/10/24 12:23 Patient weight: obese Heart: regular rate and rhythm Lungs: clear to auscultation Airway: Mallampati scale class III Neurological: alert and oriented Last oral intake: >/= 8 hours ASA classification: III Emergent: no Anesthetic plan: proceed Anesthesia type and monitoring: general ETT and standard monitoring Results Review: All pre-operative results and documents have been reviewed as part of the pre-operative evaluation. Informed Consent: The patient's anesthetic plan and its attendant risks and benefits were discussed with the patient/family/POA. Questions were solicited and answers provided to the satisfaction of the patient/family/POA.
[2024-08-11] VITALS (15 sets, daily range): BP systolic 100–142; BP diastolic 62–88; PULSE 70–105; RESP 12–20; TEMP 36.2–36.6; O2SAT 95–100; BMI 36.5
--- NOTE | ~2024-08-11 | XR_ITS ---
XR hip LT min 2V Ordering provider: Chandana Lu MD History: . POST OP LEFT TOTAL HIP. IMAGES REVIEWED DR MERCHANT. . Comparison: None. FINDINGS: BONES: No acute fracture or dislocation. HIP JOINT SPACES: Left hip arthroplasty. PUBIC SYMPHYSIS: Normal. SOFT TISSUES: Normal. IMPRESSION: No acute osseous abnormality pelvis and left hip. Left hip arthroplasty. Reviewed, dictated and finalized at location A. 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
[2024-08-11] MEDS: LACTATED RINGERS 1,000 ML 30 ML IV CONT ×2 (06:30→10:59)
[2024-08-11] MEDS: ACETAMINOPHEN 500 MG TABLET 1000 MG PO (06:42)
--- NOTE | 2024-08-11 07:06 | WPDHPUPDATE1 ---
History and Physical Update Update Date/Time: 08/11/24 07:06 History and Physical has been reviewed, including an updated exam of the patient. There are NO changes in the patient's condition. Risks, benefits, and alternatives have been discussed and questions answered. Patient agrees to proceed with procedure.
[2024-08-11] MEDS: TRANEXAMIC ACID 1,000MG/ISO100 1,000 MG/100 ML BAG 200 MG IVPB (07:14)
[2024-08-11] MEDS: ceFAZolin 2 GM/D5W 50 ML 2 GM/50 ML BAG IVPB ×2 (07:35→15:38)
[2024-08-11] MEDS: SODIUM CHLORIDE 0.9% IV 37.7 ML, MORPHINE SULFATE INJ (*CRX) 2 MG, ROPivacaine HCL 1% 2... INFILTRATE (08:31)
[2024-08-11] MEDS: TRANEXAMIC ACID 1,000 MG/10 ML AMPUL 1000 MG IV PUSH (10:10)
[2024-08-11] MEDS: fentaNYL CITRATE INJ (*CRX) 100 MCG/2 ML VIAL 25 MCG IV PUSH ×8 (11:02→11:24)
--- NOTE | 2024-08-11 11:24 | W.PM.PROC2 ---
Procedure Note - Detailed Date of Procedure 08/11/24 Pre-op Diagnosis Lt Hip DJD Post-op Diagnosis Same Procedure Performed [facility] Surgeon Chandana Lu MD Anesthesia General Description of Procedure THE PATIENT WAS TAKEN TO THE OPERATING ROOM IN STABLE CONDITION AND WAS PLACED IN THE LATERAL DECUBITUS AND THE LEFT LOWER EXTREMITY WAS PREPPED AND DRAPED IN THE STERILE FASHION. INCISION WAS MADE IN THE POSTERIOR LATERAL SIDE OF THE HIP, DOWN TO THE FASCIA LAYER. THE FASCIA WAS INCISED. THE HIP WAS EXPOSED. THE SHORT EXTERNAL ROTATORS WERE EXPOSED. THE SCIATIC NERVE WAS IDENTIFIED. INCISION WAS MADE THROUGH THE SHORT EXTERNAL ROTATORS AND THE CAPSULE OF THE HIP JOINT. THE HIP WAS DISLOCATED. AN OSTEOTOMY WAS MADE TO THE FEMORAL NECK ABOUT 1 CM PROXIMAL TO THE LESSER TROCHANTER. THE ACETABULUM WAS EXPOSED. THERE WAS SEVERE DJD SEEN. BEGINNING WITH A 44 REAMER THE ACETABULUM WAS REAMED TO 53 MM. A 53 MM TRIAL WAS PLACED IN 35 DEG OF ABDUCTION AND ANTEVERSION WAS IN ALIGNMENT WITH THE TRANS ACETABULAR LIGAMENT. THE FIT WAS EXCELLENT. THE TRIAL WAS REMOVED. A 54 MM BIOMET G7 COMPONENT WAS THEN TAPPED IN TO PLACE IN 35 DEG OF ABDUCTION AND ANTEVERSION IN ALIGNMENT WITH THE TRANSVERSE ACETABULAR LIGAMENT. THE FIT WAS EXCELLENT. THE ACETABULAR LINER WAS PLACED AND CHECKED FOR STABILITY. NEXT THE FEMUR WAS PREPARED WITH INITIAL CANAL FINDER THEN SEQUENTIAL BROACHING WITH A TAPERLOC HIP SYSTEM, UNTIL A 17 BROACH FIT WELL IN 15 OF ANTEVERSION. A +9 HIGH OFFSET NECK WITH 36 MM HEAD TRIAL WAS PLACED. THE SHUCK TEST WAS EXCELLENT AND THE STABILITY IN FLEXION AND ROTATION WAS EXCELLENT. LEG LENGTHS WERE GROSSLY EQUAL. TRIALS WERE REMOVED. A BIOMET TAPERLOC 17 STEM WAS PLACED WITH A HIGH OFFSET NECK THE FIT WAS EXCELLENT IN 15 DEG OF ANTEVERSION. A +9 CERAMIC 36 MM FEMORAL COBALT CHROME HEAD WAS PLACED. THE HIP WAS TRIALED AND THE STABILITY WAS EXCELLENT WERE THE LEG LENGTHS AND THE SHUCK TEST. THE WOUND WAS IRRIGATED WITH STERILE BETADINE AND WATER FOR 3 MIN. THEN WASHED AGAIN. THE CAPSULE AND THE EXTERNAL ROTATORS WERE APPROXIMATED WITH NUMBER 1 VICRYL. THE FASCIA WITH No 2 QUIL AND THE SUB CUTANEOUS LAYER WITH 2-0 ABSORBABLE SUTURE WITH A RUNNING 3-0 SUBCUTICULAR LAYER WELL. DERMABOND WAS PLACED AND STERILE DRESSING WAS APPLIED. PATIENT WAS PLACED BACK ON TO THE SUPINE POSITION AND WAS EXTUBATED Estimated Blood Loss 400 Complications No immediate complications Condition Stable Disposition PACU
[2024-08-11] MEDS: HYDROmorphone HCL INJ (*CRX) 1 MG/ML SYR 0.5 MG IV PUSH (11:36)
[2024-08-11] MEDS: KETOROLAC 15 MG/ML VIAL (*BKC) IV PUSH ×2 (12:38→17:32)
[2024-08-11] MEDS: FAMOTIDINE 20 MG TABLET PO ×2 (12:38→21:27)
[2024-08-11] MEDS: MULTIVITAMINS THERAPEUTIC TAB (*BKC) 1 TABLET PO (12:39)
[2024-08-11] MEDS: PANTOPRAZOLE 40 MG TABLET PO (12:39)
[2024-08-11] MEDS: SENNA/DOCUSATE SODIUM TABLET 2 TAB PO ×2 (12:39→17:58)
[2024-08-11] MEDS: ASPIRIN 325 MG ENTERIC TABLET PO ×2 (12:39→21:27)
[2024-08-11] MEDS: oxyCODONE/ACETAMINOPHEN (*CRX) 5-325 MG TABLET 1 TABLET PO ×2 (12:39→22:12)
[2024-08-11] MEDS: polyethylene glycoL 3350 17 GM POWD.PACK PO (12:39)
--- NOTE | 2024-08-11 12:52 | ADMGEN ---
This patient, Marcello Guillen, was admitted to 3 Med Surg Room 327-01. Patient/family oriented to hospital policies and general routines including ID bracelet, bed and alarms, visiting hours, pain management, procedures, bathroom and other care routines, personal items, smoking policy, room service/diet, and visiting hours. Information on how to activate the Rapid Response Team has been discussed. Patient/Family are encouraged to report perceived risks to care and to ask questions if they do not understand what they are told or what they should do.
[2024-08-11] MEDS: IBUPROFEN IV 800 MG/200 ML 800 MG/200 ML BAG 400 MG IVPB ×2 (14:46→21:23)
[2024-08-11] MEDS: diazePAM (*CRX) 5 MG TABLET PO (15:06)
[2024-08-11] MEDS: oxyCODONE/ACETAMINOPHEN (*CRX) 10-325 MG TABLET 1 TAB PO (17:58)
[2024-08-11] MEDS: clonazePAM (*CRX) 0.5 MG TABLET 2 MG PO (21:26)
[2024-08-11] MEDS: rOPINIRole HCL 1 MG TABLET 5 MG PO (21:27)
[2024-08-11] MEDS: PENICILLIN V POTASSIUM 250 MG TABLET PO (21:27)
[2024-08-12] MEDS: KETOROLAC 15 MG/ML VIAL (*BKC) IV PUSH ×3 (00:29→12:57)
[2024-08-12] MEDS: ceFAZolin 2 GM/D5W 50 ML 2 GM/50 ML BAG IVPB ×2 (00:29→09:55)
[2024-08-12 01:47] VITALS: BP 102/65; PULSE 78; RESP 12; TEMP 36.2; O2SAT 100
[2024-08-12 05:42] VITALS: BP 109/65; PULSE 68; RESP 12; TEMP 36.2; O2SAT 100
[2024-08-12] MEDS: oxyCODONE/ACETAMINOPHEN (*CRX) 10-325 MG TABLET 1 TAB PO ×2 (06:25→12:56)
[2024-08-12 07:05] LABS: Hematocrit 31.9 % (42.0-52.0); Hemoglobin 10.7 g/dL (14.0-18.0); Mean Corpuscular HGB Conc 33.5 g/dl (32-36); Mean Corpuscular Hemoglobin 30.8 pg (26-34); Mean Corpuscular Volume 91.9 fl (80-100); Mean Platelet Volume 11.2 fl (7.4-10.4); Platelet Count Result 260 k/mm3 (150-375); Red Blood Count 3.47 M/mm3 (4.6-6.20); Red Cell Distribution Width 15.9 % (11.5-14.5)
[2024-08-12 07:19] LABS: Anion Gap 0 mmol/L (4-12); Blood Urea Nitrogen 14 mg/dL (9-20); Calcium 8.6 mg/dL (8.4-10.2); Carbon Dioxide 32 mmol/L (22-30); Chloride 107 mmol/L (98-107); Estimated CRCL calculation 110 ml/min; Estimated Glomerular Filt Rate > 60; Glucose 107 mg/dL (65-110); Sodium 139 mmol/L (137-145)
[2024-08-12 09:04] LABS: Total Cells Counted 100
[2024-08-12 09:05] LABS: Band Neutrophils Percent 5 % (0-6); Basophils Absolute Manual 0.23 K/mm3 (0.0-0.1); Basophils Percent Manual 1 % (0-1); Lymphocytes Absolute Manual 3.22 K/mm3 (1.1-4.5); Lymphocytes Percent Manual 14 % (18-44); Monocytes Absolute Manual 1.15 K/mm3 (0.1-0.90); Monocytes Percent Manual 5 % (3-9); Neutrophils Percent Manual 75 % (46-73)
[2024-08-12 09:06] LABS: Anisocytosis 1+; Hypochromasia 1+; Platelet Estimate Adequate (Adequate); Schistocytes None Seen
[2024-08-12] MEDS: polyethylene glycoL 3350 17 GM POWD.PACK PO (09:55)
[2024-08-12] MEDS: ASPIRIN 325 MG ENTERIC TABLET PO (09:56)
[2024-08-12] MEDS: SENNA/DOCUSATE SODIUM TABLET 2 TAB PO (09:56)
[2024-08-12] MEDS: MULTIVITAMINS THERAPEUTIC TAB (*BKC) 1 TABLET PO (09:56)
[2024-08-12] MEDS: PENICILLIN V POTASSIUM 250 MG TABLET PO (09:56)
[2024-08-12] MEDS: PANTOPRAZOLE 40 MG TABLET PO (09:56)
[2024-08-12] MEDS: FAMOTIDINE 20 MG TABLET PO (09:57)
[2024-08-12 09:59] VITALS: BP 130/70; PULSE 90; RESP 20; TEMP 36.2
[2024-08-12] MEDS: oxyCODONE/ACETAMINOPHEN (*CRX) 5-325 MG TABLET 1 TABLET PO (10:00)
--- NOTE | 2024-08-12 13:46 | P.PNOP_ITS ---
Progress Note: A&P Assessment and Plan (1) Degenerative joint disease of left hip: Qualifiers: Osteoarthritis type: other secondary Qualified Code(s): M16.7 - Other unilateral secondary osteoarthritis of hip Code(s): M16.12 - Unilateral primary osteoarthritis, left hip Status: Acute Assessment and Plan: POD #1 : Left SHERON Continue PT/OT. WBAT. Walker. HIGH FALL RISK. Continue pain control. Ice Hip. Protect skin. DVT prophylaxis with Aspirin. SCDs. Incentive Spirometry Use reviewed. Monitor Dressing. Change prior to discharge. Bowel Regimen. Dispo: Home with Home Health pending progress with PT/OT Subjective Subjective Date/Time Seen: 08/12/24 13:46 Post Op day: 1 Interval history: POD #1: Left SHERON Patient doing well. Worked well with PT/OT. Pain well controlled. No new concerns. Hopeful for d/c home today. Review of Systems Constitutional: Constitutional: Denies chills, Denies fatigue, Denies fever(s), Denies night sweats and Denies weakness Cardiovascular: Cardiovascular: Denies chest pain, Denies lightheadedness, Denies palpitations and Denies dyspnea Respiratory: Respiratory: Denies cough, Denies dyspnea and Denies wheezing Gastrointestinal: Gastrointestinal: Denies abdominal pain, Denies diarrhea, Denies nausea and Denies vomiting Musculoskeletal: Musculoskeletal: Reports arthralgias (left hip ), Reports joint swelling (left hip ) and Denies numbness Neurologic: Denies numbness and Denies weakness Endocrine: Endocrine: Denies fatigue and Denies palpitations Allergic/Immunologic: Allergic/Immunologic: Denies wheezing Exam Const: General: comfortable and no acute distress Orientation/consciousness: patient oriented x3 Limitations: no limitations Resp: Effort & Inspection: normal respiratory effort Cardio: Rate: regular rate Rhythm: regular rhythm GI: Inspection: non-distended Skin: General skin exam: normal color and wounds noted (incision left hip C/D/I ) Wounds: wounds noted (incision left hip C/D/I ) Neuro: General: patient oriented x3 Extrem: Left lower extremity: hip/thigh Details: tenderness Location: of the hip Location: laterally and anteriorly, swelling (thigh soft ) Location: of the hip (lateral. ), abnormal ROM (limitations with internal/external rotation and flexion/extension due to recent surgical intervention ) and other (incision lateral hip c/d/i. ), knee Details: normal to inspection and normal ROM; no tenderness and no swelling, lower leg (Negative Yenifer's Sign ) Details: no edema, ankle (+ankle dorsiflexion/plantarflexion ) Details: normal to inspection, no edema and normal ROM; no tenderness, no swelling and no warmth and foot Details: normal capillary refill, toes with normal ROM, vascular exam Details: dorsalis pedis pulse present and motor-sensory exam light-touch normal in all toes; no tenderness, no ecchymosis and no crepitus Psych: Mental Status: mental status grossly normal Affect: normal affect Objective Data Vital Signs Vital Signs: Vital Signs - 24 hr 08/11/24 13:59 08/11/24 16:00 08/11/24 17:59 Temperature 36.4 C 36.4 C 36.3 C L Pulse Rate 98 90 70 Respiratory Rate 20 20 20 Blood Pressure 118/88 120/88 114/75 Pulse Oximetry 98 99 99 08/11/24 21:40 08/12/24 01:47 08/12/24 05:42 Temperature 36.3 C L 36.2 C L 36.2 C L Pulse Rate 85 78 68 Respiratory Rate 14 12 12 Blood Pressure 111/63 102/65 109/65 Pulse Oximetry 100 100 100 08/12/24 09:59 Temperature 36.2 C L Pulse Rate 90 Respiratory Rate 20 Blood Pressure 130/70 Pulse Oximetry Intake/Output Intake/Output: Intake & Output 08/09/24 08/10/24 08/11/24 08/12/24 23:59 23:59 23:59 23:59 Intake Total 960 1540 Output Total 300 1400 Balance 660 140 Meds/Results Medications: Active Medications Generic Name Dose Route Start Last Admin Trade Name Freq PRN Reason Stop Dose Admin Acetaminophen 500 mg 08/11/24 12:14 Acetaminophen 500 Mg Tablet PO Q6H PRN Pain Rated 1-3 Albuterol 1 puff 08/11/24 12:14 Albuterol Sulfate (*Sp) Aerosol 1 Puff INHALATION Q4H PRN Shortness Of Breath Aspirin 325 mg 08/11/24 12:14 08/12/24 09:56 Aspirin 325 Mg Enteric Tablet PO 325 mg Q12HR ZACH Administration Clonazepam 2 mg 08/11/24 21:00 08/11/24 21:26 Clonazepam (*Crx) 0.5 Mg Tablet PO 2 mg QHS ZACH Administration Diazepam 5 mg 08/11/24 12:14 08/11/24 15:06 Diazepam (*Crx) 5 Mg Tablet PO 5 mg Q6H PRN Administration Anxiety/Muscle Spasm Diphenhydramine HCl 25 mg 08/11/24 12:14 Diphenhydramine Hcl Inj 50 Mg/Ml Vial IV PUSH Q6H PRN Itching Famotidine 20 mg 08/11/24 12:14 08/12/24 09:57 Famotidine 20 Mg Tablet PO 20 mg Q12HR ZACH Administration Hydromorphone HCl 1 mg 08/11/24 12:14 Hydromorphone Hcl Inj (*Crx) 1 Mg/Ml Syr IV PUSH Q2H PRN Breakthrough Pain Rated 7-10 or NPO Hydromorphone HCl 0.5 mg 08/11/24 12:14 Hydromorphone Hcl Inj (*Crx) 1 Mg/Ml Syr IV PUSH Q2H PRN Breakthrough Pain Rated 4-6 or NPO Ibuprofen 800 mg in 200 mls @ 400 mls/hr 08/11/24 12:14 08/11/24 21:53 Caldolor 800 Mg/200 Ml IVPB Infused Q6H PRN Infusion Breakthrough Pain Rated 1-3 or NPO Multivitamins Therapeutic 1 tablet 08/11/24 12:14 08/12/24 09:56 Multivitamins Therapeutic Tab (*Bkc) PO 1 tablet DAILY ZACH Administration Naloxone HCl 0.1 mg 08/11/24 12:14 Naloxone Hcl 0.4 Mg/Ml Vial IV PUSH Q2M PRN Opiate Reversal Ondansetron HCl 4 mg 08/11/24 12:14 Ondansetron Inj 4 Mg/2 Ml Vial IV PUSH Q4H PRN Nausea And Vomiting Oxycodone/Acetaminophen 1 tablet 08/11/24 12:14 08/12/24 10:00 Oxycodone/Acetaminophen (*Crx) 5-325 Mg Tablet PO 1 tablet Q4H PRN Administration Pain Rated 4-6 Oxycodone/Acetaminophen 1 tab 08/11/24 12:14 08/12/24 12:56 Oxycodone/Acetaminophen (*Crx) 10-325 Mg Tablet PO 1 tab Q6H PRN Administration Pain Rated 7-10 Pantoprazole Sodium 40 mg 08/11/24 13:00 08/12/24 09:56 Pantoprazole 40 Mg Tablet PO 40 mg QAM ZACH Administration Penicillin V Potassium 250 mg 08/11/24 21:00 08/12/24 09:56 Penicillin V Potassium 250 Mg Tablet PO 250 mg Q12HR ZACH Administration Polyethylene Glycol 17 gm 08/11/24 12:14 08/12/24 09:55 Polyethylene Glycol 3350 17 Gm Powd.Pack PO 17 gm QAM ZACH Administration Ropinirole HCl 5 mg 08/11/24 21:00 08/11/24 21:27 Ropinirole Hcl 1 Mg Tablet PO 5 mg QHS ZACH Administration Senna/Docusate Sodium 2 tab 08/11/24 12:14 08/12/24 09:56 Senna/Docusate Sodium Tablet PO 2 tab BID ZACH Administration Radiology Results: ITS Impressions Hip X-Ray 08/11/24 11:43 IMPRESSION: No acute osseous abnormality pelvis and left hip. Left hip arthroplasty. Labs Labs: Laboratory Results - last 24 hr 08/12/24 06:16 WBC 23.0 H RBC 3.47 L Hgb 10.7 L D Hct 31.9 L MCV 91.9 MCH 30.8 MCHC 33.5 RDW 15.9 H Plt Count 260 MPV 11.2 H Immature Gran % (Auto) Not Reportable Neut % (Auto) Not Reportable Lymph % (Auto) Not Reportable [place] % (Auto) Not Reportable Eos % (Auto) Not Reportable Baso % (Auto) Not Reportable Lymph # (Auto) Not Reportable [place] # (Auto) Not Reportable Eos # (Auto) Not Reportable Baso # (Auto) Not Reportable Abs Immat Gran (auto) Not Reportable Absolute Neuts (auto) Not Reportable Absolute Nucleated RBC Not Reportable Total Counted 100 Neutrophils % (Manual) 75 H Band Neutrophils % 5 Lymphocytes % (Manual) 14 L Monocytes % (Manual) 5 Basophils % (Manual) 1 Nucleated RBC % Not Reportable Abs Neuts (Manual) 18.40 H Abs Lymphs (Manual) 3.22 Abs Monocytes (Manual) 1.15 H Abs Basophils (Manual) 0.23 H Platelet Estimate Adequate Hypochromasia 1+ Anisocytosis 1+ Schistocytes None seen Sodium 139 Potassium 5.0 Chloride 107 Carbon Dioxide 32 H Anion Gap 0 L BUN 14 Creatinine 0.80 Estim Creat Clear Calc 110 Estimated GFR > 60 Glucose 107 Calcium 8.6
--- NOTE | 2024-08-12 14:03 | P.DS_ITS ---
DS: Admitting Diagnosis Discharge Date 08/12/2024 Admitting Diagnosis Left Hip DJD DS: Discharge Diagnosis Discharge Diagnosis (1) Degenerative joint disease of left hip: Qualifiers: Osteoarthritis type: other secondary Qualified Code(s): M16.7 - Other unilateral secondary osteoarthritis of hip Code(s): M16.12 - Unilateral primary osteoarthritis, left hip Status: Acute Assessment and Plan: POD #1 : Left SHERON Continue PT/OT. WBAT. Walker. HIGH FALL RISK. Continue pain control. Ice Hip. Protect skin. DVT prophylaxis with Aspirin. SCDs. Incentive Spirometry Use reviewed. Monitor Dressing. Change prior to discharge. Bowel Regimen. Dispo: Home with Home Health pending progress with PT/OT DS: Summary Time Spent with Patient Time attestation: Total time spent providing and/or coordinating discharge services: Exam Const: General: comfortable and no acute distress Orientation/consciousness: patient oriented x3 Limitations: no limitations Resp: Effort & Inspection: normal respiratory effort Cardio: Rate: regular rate Rhythm: regular rhythm GI: Inspection: non-distended Skin: General skin exam: normal color and wounds noted (incision left hip C/D/I ) Wounds: wounds noted (incision left hip C/D/I ) Neuro: General: patient oriented x3 Extrem: Left lower extremity: hip/thigh Details: tenderness Location: of the hip Location: laterally and anteriorly, swelling (thigh soft ) Location: of the hip (lateral. ), abnormal ROM (limitations with internal/external rotation and flexion/extension due to recent surgical intervention ) and other (incision lateral hip c/d/i. ), knee Details: normal to inspection and normal ROM; no tenderness and no swelling, lower leg (Negative Yenifer's Sign ) Details: no edema, ankle (+ankle dorsiflexion/plantarflexion ) Details: normal to inspection, no edema and normal ROM; no tenderness, no swelling and no warmth and foot Details: normal capillary refill, toes with normal ROM, vascular exam Details: dorsalis pedis pulse present and motor-sensory exam light-touch normal in all toes; no tenderness, no ecchymosis and no crepitus Psych: Mental Status: mental status grossly normal Affect: normal affect DS: Data Data Completed and Pending Labs on day of discharge: Labs from last 24 hours 08/12/24 06:16 WBC 23.0 H RBC 3.47 L Hgb 10.7 L D Hct 31.9 L MCV 91.9 MCH 30.8 MCHC 33.5 RDW 15.9 H Plt Count 260 MPV 11.2 H Immature Gran % (Auto) Not Reportable Neut % (Auto) Not Reportable Lymph % (Auto) Not Reportable [place] % (Auto) Not Reportable Eos % (Auto) Not Reportable Baso % (Auto) Not Reportable Lymph # (Auto) Not Reportable [place] # (Auto) Not Reportable Eos # (Auto) Not Reportable Baso # (Auto) Not Reportable Abs Immat Gran (auto) Not Reportable Absolute Neuts (auto) Not Reportable Absolute Nucleated RBC Not Reportable Total Counted 100 Neutrophils % (Manual) 75 H Band Neutrophils % 5 Lymphocytes % (Manual) 14 L Monocytes % (Manual) 5 Basophils % (Manual) 1 Nucleated RBC % Not Reportable Abs Neuts (Manual) 18.40 H Abs Lymphs (Manual) 3.22 Abs Monocytes (Manual) 1.15 H Abs Basophils (Manual) 0.23 H Platelet Estimate Adequate Hypochromasia 1+ Anisocytosis 1+ Schistocytes None seen Sodium 139 Potassium 5.0 Chloride 107 Carbon Dioxide 32 H Anion Gap 0 L BUN 14 Creatinine 0.80 Estim Creat Clear Calc 110 Estimated GFR > 60 Glucose 107 Calcium 8.6 Discharge Plan Discharge Patient Disposition: Home Health Service Discharge Instructions: Post Op Total Hip Replacement Instructions Dr. Chandana Lu [phone] * Your dressing will be changed prior to your discharge. You will be sent home with one additional dressing to be changed on post op day 7 by the home health RN. You may remove the dressing on post op day 14. Your incision was closed with dermabond, allow the dermabond to fall off naturally once your dressing is removed. Do not pull at the dermabond or disrupt incision healing. * You may shower with your dressing but do not submerge in a bath tub. * Do not drive or operate machinery until you are released by Dr. Lu. * Do not walk without a walker for any reason until you are released by Dr. Lu. * Continue to apply ice to the hip intermittently for additional pain relief. Protect your skin with a towel or pillow case. * Continue to follow strict total hip replacement precautions. * Your first post op appointment was sent to you via mail preoperatively. If you have any questions or are unable to make your appointment, please contact our office for scheduling questions. * Your medications have been sent to your pharmacy. You have been sent home with pain medication. Please apple picker an over the counter stool softener to prevent constipation due to narcotic use. Please keep this in mind during your postoperative recovery. If you are not experiencing regular bowel movements, please contact our office for further instructions. * Please contact our office with any questions/concerns regarding your hip at [phone]. Patient Instructions: Antibiotic Form Patient Language: German Stand Alone Forms: General Discharge Information Follow-up/Referrals: Chandana Lu MD [Physician] - Keep Reg. Scheduled Appt. Discharge Medications: New aspirin 325 mg Tablet,Delayed Release (Dr/Ec) 325 mg PO Q12HR 28 Days Qty: 56 0RF Continued ascorbic acid (vitamin C) 500 mg Tablet 1,000 mg PO DAILY multivitamin Tablet 1 tablet PO DAILY albuterol sulfate 90 mcg/actuation HFA aerosol inhaler 1 puff inhalation Q4H PRN (Reason: Shortness Of Breath) Qty: 8.5 0RF budesonide-formoterol 160-4.5 mcg/actuation HFA aerosol inhaler 2 puff inhalation Q12H Qty: 30.6 2RF Patient Comments: HS only cholecalciferol (vitamin D3) 50 mcg (2,000 unit) tablet 50 mcg PO DAILY Qty: 90 2RF clonazepam 2 mg tablet 2 mg PO QHS Qty: 90 1RF cyanocobalamin (vitamin B-12) 1,000 mcg tablet, sublingual 1,000 mcg sublingual DAILY Qty: 90 1RF omeprazole 20 mg capsule,delayed release(DR/EC) 20 mg PO DAILY Qty: 90 2RF ropinirole 5 mg tablet 5 mg PO QHS Qty: 90 2RF acyclovir 200 mg capsule 200 mg PO BID meloxicam 7.5 mg tablet 7.5 mg PO BID Qty: 180 1RF Rx Instructions: 1 tablet by mouth BID penicillin V potassium 250 mg tablet 250 mg PO Q12H Qty: 180 0RF mupirocin 2 % ointment 1 applic topical BID Qty: 15 0RF Rx Instructions: apply to each nostril BID for 5 days escitalopram oxalate 20 mg tablet 20 mg PO DAILY Qty: 90 2RF hydrocodone-acetaminophen 5-325 mg tablet 1 tablet PO BID PRN (Reason: pain) Qty: 30 0RF Discontinued chlorhexidine gluconate [Hibiclens] 4 % liquid 1 applic topical DAILY Qty: 237 0RF Rx Instructions: cleanse operative extremity every day for 7 days prior to procedure
--- NOTE | 2024-08-12 14:08 | PM.DS ---
DS: Admitting Diagnosis Discharge Date 08/12/2024 Admitting Diagnosis Left Hip DJD DS: Discharge Diagnosis Discharge Diagnosis (1) Degenerative joint disease of left hip: Qualifiers: Osteoarthritis type: other secondary Qualified Code(s): M16.7 - Other unilateral secondary osteoarthritis of hip Code(s): M16.12 - Unilateral primary osteoarthritis, left hip Status: Acute Assessment and Plan: POD #1 : Left SHERON Continue PT/OT. WBAT. Walker. HIGH FALL RISK. Continue pain control. Ice Hip. Protect skin. DVT prophylaxis with Aspirin. SCDs. Incentive Spirometry Use reviewed. Monitor Dressing. Change prior to discharge. Bowel Regimen. Dispo: Home with Home Health pending progress with PT/OT DS: Summary Hospital Course Reason for hospitalization: Left SHERON Hospital Course: 54 year old male admitted s/p Left SHERON for postoperative medical management, pain control and mobilization with PT/OT. Patient progressed well with PT/OT. Pain and vitals remained stable throughout. The patient has been cleared to be discharged home with home health at this time. All discharge care instructions reviewed at depth. New medications reviewed. Follow up planned for 3 weeks in the outpatient orthopedic clinic with Dr. Lu. Dr. Lu in agreement with safe discharge at this time. Status at Discharge Functional status at discharge: uses cane/walker Overall status at discharge: patient is progressing back to baseline Time Spent with Patient Time attestation: Total time spent providing and/or coordinating discharge services: Exam Const: General: comfortable and no acute distress Orientation/consciousness: patient oriented x3 Limitations: no limitations Resp: Effort & Inspection: normal respiratory effort Cardio: Rate: regular rate Rhythm: regular rhythm GI: Inspection: non-distended Skin: General skin exam: normal color and wounds noted (incision left hip C/D/I ) Wounds: wounds noted (incision left hip C/D/I ) Neuro: General: patient oriented x3 Extrem: Left lower extremity: hip/thigh Details: tenderness Location: of the hip Location: laterally and anteriorly, swelling (thigh soft ) Location: of the hip (lateral. ), abnormal ROM (limitations with internal/external rotation and flexion/extension due to recent surgical intervention ) and other (incision lateral hip c/d/i. ), knee Details: normal to inspection and normal ROM; no tenderness and no swelling, lower leg (Negative Yenifer's Sign ) Details: no edema, ankle (+ankle dorsiflexion/plantarflexion ) Details: normal to inspection, no edema and normal ROM; no tenderness, no swelling and no warmth and foot Details: normal capillary refill, toes with normal ROM, vascular exam Details: dorsalis pedis pulse present and motor-sensory exam light-touch normal in all toes; no tenderness, no ecchymosis and no crepitus Psych: Mental Status: mental status grossly normal Affect: normal affect DS: Data Data Completed and Pending Labs on day of discharge: Labs from last 24 hours 08/12/24 06:16 WBC 23.0 H RBC 3.47 L Hgb 10.7 L D Hct 31.9 L MCV 91.9 MCH 30.8 MCHC 33.5 RDW 15.9 H Plt Count 260 MPV 11.2 H Immature Gran % (Auto) Not Reportable Neut % (Auto) Not Reportable Lymph % (Auto) Not Reportable [place] % (Auto) Not Reportable Eos % (Auto) Not Reportable Baso % (Auto) Not Reportable Lymph # (Auto) Not Reportable [place] # (Auto) Not Reportable Eos # (Auto) Not Reportable Baso # (Auto) Not Reportable Abs Immat Gran (auto) Not Reportable Absolute Neuts (auto) Not Reportable Absolute Nucleated RBC Not Reportable Total Counted 100 Neutrophils % (Manual) 75 H Band Neutrophils % 5 Lymphocytes % (Manual) 14 L Monocytes % (Manual) 5 Basophils % (Manual) 1 Nucleated RBC % Not Reportable Abs Neuts (Manual) 18.40 H Abs Lymphs (Manual) 3.22 Abs Monocytes (Manual) 1.15 H Abs Basophils (Manual) 0.23 H Platelet Estimate Adequate Hypochromasia 1+ Anisocytosis 1+ Schistocytes None seen Sodium 139 Potassium 5.0 Chloride 107 Carbon Dioxide 32 H Anion Gap 0 L BUN 14 Creatinine 0.80 Estim Creat Clear Calc 110 Estimated GFR > 60 Glucose 107 Calcium 8.6 Discharge Plan Discharge Patient Disposition: Home Health Service Discharge Instructions: Post Op Total Hip Replacement Instructions Dr. Chandana Lu [phone] Your dressing will be changed prior to your discharge. You will be sent home with one additional dressing to be changed on post op day 7 by the home health RN. You may remove the dressing on post op day 14. Your incision was closed with dermabond, allow the dermabond to fall off naturally once your dressing is removed. Do not pull at the dermabond or disrupt incision healing. You may shower with your dressing but do not submerge in a bath tub. Do not drive or operate machinery until you are released by Dr. Lu. Do not walk without a walker for any reason until you are released by Dr. Lu. Continue to apply ice to the hip intermittently for additional pain relief. Protect your skin with a towel or pillow case. Continue to follow strict total hip replacement precautions. Your first post op appointment was sent to you via mail preoperatively. If you have any questions or are unable to make your appointment, please contact our office for scheduling questions. Your medications have been sent to your pharmacy. You have been sent home with pain medication. Please orange picker machine operator an over the counter stool softener to prevent constipation due to narcotic use. Please keep this in mind during your postoperative recovery. If you are not experiencing regular bowel movements, please contact our office for further instructions. Please contact our office with any questions/concerns regarding your hip at [phone]. Patient Instructions: Antibiotic Form Patient Language: Sinhala Stand Alone Forms: General Discharge Information Follow-up/Referrals: Chandana Lu MD [Physician] - Keep Reg. Scheduled Appt. Discharge Medications: New aspirin 325 mg Tablet,Delayed Release (Dr/Ec) 325 mg PO Q12HR 28 Days Qty: 56 0RF oxycodone-acetaminophen 5-325 mg Tablet 1 tablet PO Q4-6H PRN (Reason: pain) Qty: 40 0RF Continued ascorbic acid (vitamin C) 500 mg Tablet 1,000 mg PO DAILY multivitamin Tablet 1 tablet PO DAILY albuterol sulfate 90 mcg/actuation HFA aerosol inhaler 1 puff inhalation Q4H PRN (Reason: Shortness Of Breath) Qty: 8.5 0RF budesonide-formoterol 160-4.5 mcg/actuation HFA aerosol inhaler 2 puff inhalation Q12H Qty: 30.6 2RF Patient Comments: HS only cholecalciferol (vitamin D3) 50 mcg (2,000 unit) tablet 50 mcg PO DAILY Qty: 90 2RF clonazepam 2 mg tablet 2 mg PO QHS Qty: 90 1RF cyanocobalamin (vitamin B-12) 1,000 mcg tablet, sublingual 1,000 mcg sublingual DAILY Qty: 90 1RF omeprazole 20 mg capsule,delayed release(DR/EC) 20 mg PO DAILY Qty: 90 2RF ropinirole 5 mg tablet 5 mg PO QHS Qty: 90 2RF acyclovir 200 mg capsule 200 mg PO BID meloxicam 7.5 mg tablet 7.5 mg PO BID Qty: 180 1RF Rx Instructions: 1 tablet by mouth BID penicillin V potassium 250 mg tablet 250 mg PO Q12H Qty: 180 0RF mupirocin 2 % ointment 1 applic topical BID Qty: 15 0RF Rx Instructions: apply to each nostril BID for 5 days escitalopram oxalate 20 mg tablet 20 mg PO DAILY Qty: 90 2RF hydrocodone-acetaminophen 5-325 mg tablet 1 tablet PO BID PRN (Reason: pain) Qty: 30 0RF Discontinued chlorhexidine gluconate [Hibiclens] 4 % liquid 1 applic topical DAILY Qty: 237 0RF Rx Instructions: cleanse operative extremity every day for 7 days prior to procedure Quality VTE Prophylaxis VTE prophylaxis: pharmacologic ordered
--- NOTE | 2024-08-12 14:32 | WPDANESPN ---
Anes - Prog Note Post-Op Date/Time: 08/12/24 14:32 Vital Signs: Last Vital Signs Temp 36.2 C L 08/12/24 09:59 Pulse 90 08/12/24 09:59 Resp 20 08/12/24 09:59 BP 130/70 08/12/24 09:59 Pulse Ox 100 08/12/24 05:42 O2 Del Method Room Air 08/11/24 13:15 O2 Flow Rate 2 08/11/24 13:05 Pain Score (VAS): 3 I/O: Intake & Output 08/11/24 08/12/24 08/12/24 23:59 07:59 15:59 Intake Total 610 800 740 Output Total 1400 Balance 610 -600 740 Laboratory Tests 08/12/24 06:16 08/12/24 06:16 08/12/24 06:16 WBC 23.0 H RBC 3.47 L Hgb 10.7 L D Hct 31.9 L MCV 91.9 MCH 30.8 MCHC 33.5 RDW 15.9 H Plt Count 260 MPV 11.2 H Immature Gran % (Auto) Not Reportable Neut % (Auto) Not Reportable Lymph % (Auto) Not Reportable [place] % (Auto) Not Reportable Eos % (Auto) Not Reportable Baso % (Auto) Not Reportable Lymph # (Auto) Not Reportable [place] # (Auto) Not Reportable Eos # (Auto) Not Reportable Baso # (Auto) Not Reportable Abs Immat Gran (auto) Not Reportable Absolute Neuts (auto) Not Reportable Absolute Nucleated RBC Not Reportable Total Counted 100 Neutrophils % (Manual) 75 H Band Neutrophils % 5 Lymphocytes % (Manual) 14 L Monocytes % (Manual) 5 Basophils % (Manual) 1 Nucleated RBC % Not Reportable Abs Neuts (Manual) 18.40 H Abs Lymphs (Manual) 3.22 Abs Monocytes (Manual) 1.15 H Abs Basophils (Manual) 0.23 H Platelet Estimate Adequate Hypochromasia 1+ Anisocytosis 1+ Schistocytes None seen Sodium 139 Potassium 5.0 Chloride 107 Carbon Dioxide 32 H Anion Gap 0 L BUN 14 Creatinine 0.80 Estim Creat Clear Calc 110 Estimated GFR > 60 Glucose 107 Calcium 8.6 Patient Feedback: Patient satisfied with anesthetic care.
--- OUTSIDE RECORDS SUMMARY | 2024-08-18 00:19 | XMS_ITS | Referral Summary ---
Author Organization [facility] Address [address] [place] [address] Care Team Providers Care Mapping Supervisor Name Role Phone Hillary Apple MD Unavailable [phone] Tony Dumont MD Unavailable [phone] Maryjo ReinosoW Unavailable Unavailable Madyson Clay PharmD Unavailable Unavaila Dana Galicia [employer]-EMERGENCY ROOM CLINICIAN Unavailable [phone] Tiffanie Nguyen [employer]-HOME EXTENSION AGENT Unavailable [phone] Cesar Tavares MD Unavailable [phone] Joy Bob Unavailable Fanta Ran Augustine MD Primary Care Provider Tony Dumont MD Unavailable [phone] Shalini Segal MD Unavailable [phone] Stefanie Burns RN Unavailable Unavaila Fatemeh Kelly RN Unavailable Unavailable Chandana Lu MD Unavailable [phone] Source Comments [facility],non-owned Affiliates and Associated Physician Practices is amultiple site organization consisting of ambulatory clinics and hospital sitesin [place], [place], [place] and [place]. This disclosure is being madepursuant to the Care Everywhere program and may not contain all information available regarding this patient. Last updated 18.[facility] Encounters Date Type Department Care Team Description 07/12/2024 Telephone [facility] - Centralized Scheduling [address] [place] [address] Andrew Francis MD Reschedule Appointment 07/12/2024 Travel from Last 3 Months Allergies Active Allergy Reactions Criticality Noted Date Comments Adhesive Sensitivity Urticaria,Other Medium 08/17/2019 Electrodes -- welps where stickers are Also, use paper tape Medications * Be aware that medications may not be up to date on this document. Alwaysverify current medications with the patient. Medication Sig Dispensed Refills Start Date End Date Status multivitamin daily tablet Take 1 (one) tablet by mouth daily with food Active acetaminophen (TYLENOL) 325 MG tablet Take 1 tablet by mouth every 4 hours as needed Maximum allowable Acetaminophen amount = 4 Grams (4000 mg) / 24 hours. 04/05/2020 Active albuterol HFA (PROVENTIL;VENTOL IN;PROAIR) 108 (90 Base) MCG/ACT inhaler Inhale 2 puffs by mouth every 4 hours 04/05/2020 Active rOPINIRole (REQUIP) 0.25 MG tabletIndications :Restless Leg Syndrome Take 1 (one) tablet by mouth at bedtime Reasons: Restless Leg Syndrome 90 tablet 3 01/02/2021 Active penicillin V potassium (VEETIDS) 250 MG tablet Take 1 (one) tablet by mouth 2 times daily 60 tablet 11 05/10/2021 Active escitalopram (LEXAPRO) 20 MG tablet TAKE 1 TABLET BY MOUTH EVERY DAY 30 tablet 11 08/10/2021 Active clonazePAM (KLONOPIN) 1 MG tablet Take 1 (one) tablet by mouth at bedtime 30 tablet 08/15/2021 Active HYDROcodone-aceta minophen (NORCO) 5-325 MG tablet Take 1 (one) tablet by mouth every 6 hours as needed for Pain Active benzonatate (Tessalon) 200 MG capsule Take 1 (one) capsule by mouth 3 times daily as needed for Cough 30 capsule 06/30/2022 Active albuterol HFA (Ventolin HFA) 108 (90 Base) MCG/ACT inhaler Inhale 2 (two) puffs by mouth every 4 hours as needed 54 g 4 01/18/2023 Active cyanocobalamin 100 MCG tablet Take 1 (one) tablet by mouth once daily Active ondansetron (Zofran) 8 MG tablet 01/16/2023 Active acyclovir (Zovirax) 400 MG tabletIndications :Stem cells transplant status (HCC) Take 2 (two) tablets by mouth 2 times daily 360 tablet 3 02/20/2023 Active Fluticasone-Umecl idin-Vilant (Trelegy Ellipta) 100-62.5-25 MCG/ACT Inhale 1 (one) puff by mouth once daily 28 Each 5 03/01/2024 Active Active Problems Problem Noted Date Diagnosed Date LISSA (obstructive sleep apnea) 12/24/2021 Overview (07/26/2024): 10/30/22 IMPRESSION: 1. CPAP at the maximal setting of 14 cmH2O was partially effective in ameliorating obstructive sleep apnea but was associated with persistent sleep-related hypoxemia 2. BPAP at the maximal setting of EPAP of 12 cmH2O and IPAP cmH2O of 22 was effective in ameliorating obstructive apneas and hypopneas but was associated with persistence of a few respiratory effort-related arousals (RERA) and sleep-related hypoxemia 3. CPAP at 10 cmH2O plus oxygen at 5 L/min side flow was effective in ameliorating obstructive apneas and hypopneas but was associated with persistence of respiratory effort-related arousals (RERAs). 05/16/22 DIAGNOSTIC STUDY Sleep Architecture: During this diagnostic study, the patient was monitored from 9:55 pm to 5:31 am. The patient slept for 394 minutes and had normal sleep efficiency of 86.4%. The patient's initial sleep latency was reduced at 4.5 minutes. The initial REM latency was prolonged at 284.5 minutes. The sleep architecture was as follows: stage N1: 21.1%; stage N2: 59.8%; stage N3: 6.6%; stage REM: 12.6%. Respiratory Analysis: The patient's overall apnea-hypopnea index (AHI) was increased at 10.8 per hour while the respiratory effort-related arousal index was decreased at 29.2 per hour. The overall respiratory disturbance index (RDI) was 40 per hour. The supine AHI was 11.6 per hour and the supine RERA index was 50.5 per hour. The lateral AHI was 10.2 per hour and the lateral RERA index was 13.1 per hour. The REM AHI was 32.7 per hour while the REM RERA index was 8.5 per hour. There were 1 obstructive apneas, 0 central apneas, 0 mixed apneas, 70 hypopneas, and 29.2 respiratory effort-related arousals (RERA). There was no evidence of periodic breathing. Oximetry Data: The minimum oxygen saturation was decreased at 58%. The time spent with oxygen saturation less than 90% was 262.5 minutes of the total diagnostic sleep time. Snoring Profile: Frequent, moderate snoring was detected during this study. Periodic Limb Movements: The patient's periodic limb movement index was within normal limits at 0 per hour. Brief episodes of phasic bruxism was noted during this diagnostic study. Back pain 12/24/2021 History of nephrolithiasis 12/24/2021 Restless legs syndrome (RLS) 12/24/2021 Hypersomnia due to medical condition 12/24/2021 Hypoxemia 02/19/2021 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/09/2019 History of marijuana use 06/28/2019 DLBCL (diffuse large B cell lymphoma) 05/24/2019 Asthma 12/03/2017 B-cell lymphoma 04/18/2017 Lymphadenopathy 04/11/2017 Ground glass opacity present on imaging of lung Immunizations Name Administration Dates Next Due COVID PFIZER BIVALENT 12Y+ 30mcg/0.3ML 2 Covid Pfizer primary Monoval ent 12+ yr 0.3ml 12/20/2021 Covid Pfizer primary monoval ent 12+ yr 0.3mL Purple cap 08/30/2021,12/07/2020,11/16/2020 DTAP 5 PERTUSSIS ANTIGENS 02/15/2021,09/28/2020, 07/14/2020 HEP A/HEP B 08/30/2021,09/28/2020,07/14/2020 HIB-PRP-T 4 DOSE 02/15/2021,,06/16/2020,08/11 INFLUENZA VACCINE, HIGH-DOSE , QUADR. (FLUZONE HIGH-DOSE QUADRIVALENT; 65Y+), 0.7 ML (HD-IIV4) 05/22/2022,05/24/2019 MENINGOCOCCAL MCV4O 08/31/2020,06/16/2020,2019 MMR 05/22/2022 PNEUMOCOCCAL PPSV23 08/30/2021,08/11/2019 POLIO IPV 02/15/2021,09/28/2020,07/14/2020 Pneumococcal Pcv13 Conj 02/15/2021,08/31/2020, Zoster Hzv Vacc Recombinant Inj Im 09/28/2020, Social History Tobacco Use Types Packs/Day Years Used Date Smoking Tobacco: Former Cigarettes 0.5 18 1 984 - 2001 Smokeless Tobacco: Former Chew Quit: 2017 Tobacco Cessation:Counseling Given: Not Answered Alcohol Use Standard Drinks/Week Comments Not Currently 0 (1 standard drink = 0.6 oz pur e alcohol) PHQ-2 Answer Date Recorded PHQ2 TOTAL SCORE 0 06/30/2022 Sex and Gender Information Value Date Recorded Sex Assigned at Male 03/27/2022 11:34 AM CDT Gender Identity Male 03/27/2022 11:34 AM CDT Sexual Orientation Straight 03/27/2022 11 :34 AM CDT Last Filed Vital Signs Vital Sign Reading Time Taken Comments Blood Pressure 101/70 02/26/2024 8:05 AM CDT Pulse 69 02/26/2024 8:05 AM CDT Temperature 37.2 ??C (99 ??F) 06/30/2022 6:32 PM [employer] Respiratory Rate 17 02/26/2024 8:05 AM CDT Oxygen Saturation 95% 02/26/2024 8:05 AM CDT Inhaled Oxygen Concentration 50% 09/2019 12:16 AM CDT Weight 114.4 kg (252 lb 3.2 oz) 02/26/2024 8:05 AM CDT Height 172.7 cm (5' 8 ) 02/26/2024 8:05 AM CDT Body Mass Index 38.35 02/26/2024 8:05 AM CDT Functional Status Functional Status Response Date of Assess ment Is person deaf or have serious hearing difficult y? No 02/25/2020 Is person blind or have serious difficulty seein g? No 02/25/2020 Does person have serious dif ficulty walking/climbing stairs? No 02/25/2020 Does person have difficulty dressing/bathing? No 02/25/2020 Does person have difficulty doing errands alone? No 02/25/2020 Cognitive Status Response Date of Assessm ent Does person have difficulty concentrating/remembering/making decisions? No 02/25/2020 Plan of Treatment Upcoming Encounters Date Type Department Care Team (Late st Contact Info) Description 08/26/2024 11:00 AM [employer] Office Visit [facility] - Pulmonology [address] [place] [address] Andrew Francis MD [facility] [facility] 2L DIV OF PULMONARY/[place] [address] Medical Devices Implanted Type Area Vamp Seamer Device Identifier Shelf Expiration Date Model / Serial / Lot Tray Cath 12fr 23cm Hkmn Trifusion 3 Lum Implanted:Qty: 1 on 09/17/2019 at [facility] [employer] 05/03/2021 [id number] / / [id number] Procedures Procedure Name Priority Date/Time Associated Diagnosis Comments COMPREHENSIVE METABOLIC PANEL STAT 08/30/2021 11:36 AM [employer] Diffuse large B-cell lymphoma, unspecified body region (HCC) LIPID PROFILE Routine 08/30/2021 11:36 AM [employer] Diffuse large B-cell lymphoma, unspecified body region (HCC) S/P autologous bone marrow transplantation (HCC) HEPATITIS C ANTIBODY Routine 09/09/2019 12:42 PM [employer] Pre-transplant evaluation for stem cell transplant HIV-1 HIV-2 ANTIGEN/ANTIBODY Routine 03/22/2019 3:00 PM CDT Diffuse large B-cell lymphoma, unspecified body region (HCC) from Last 3 Months or Most Recently Relevant to Health Maintenance Results * (ABNORMAL) COMPREHENSIVE METABOLIC PANEL (08/30/2021 11:36 AM [employer]) BUN 12 7 - 26 mg/dL 08/30/2021 12:10 PM [facility] Creatinine 1.02 0.71 - 1.16 mg/dL 08/30/2021 12:10 PM [facility] Sodium 140 136 - 145 mmol/L 08/30/2021 12:10 PM [facility] Potassium 4.8(H) 3.5 - 4.5 mmol/L 08/30/2021 12:10 PM [facility] Chloride 107 98 - 107 mmol/L 08/30/2021 12:10 PM [facility] CO2 23 22 - 29 mmol/L 08/30/2021 12:10 PM [facility] Glucose 99 70 - 115 mg/dL 08/30/2021 12:10 PM [facility] Calcium 9.4 8.4 - 10.2 mg/dL 08/30/2021 12:10 PM [facility] Protein Total 6.6 6.0 - 8.3 g/dL 08/30/2021 12:10 PM [facility] Albumin 3.9 3.4 - 5.0 g/dL 08/30/2021 12:10 PM [facility] Bilirubin Total 0.4 0.2 - 1.2 mg/dL 08/30/2021 12:10 PM [facility] Alkaline Phosphatase 113 40 - 150 U/L 08/30/2021 12:10 PM [facility] ALT 38 5 - 55 U/L 08/30/2021 12:10 PM [facility] AST 26 5 - 34 U/L 08/30/2021 12:10 PM [facility] Anion Gap 15 8 - 18 08/30/2021 12:10 PM [facility] BUN/Creatinine Ratio 12 7 - 23 08/30/2021 12:10 PM [facility] Osmolality Calculated 290 270 - 300 mOsm/kg 08/30/2021 12:10 PM [facility] Albumin/Globulin Ratio 1.4 1.1 - 2.3 08/30/2021 12:10 PM [facility] eGFR by CKD-EPI 85(L) >=90 mL/min/1.7 3 m2 08/30/2021 12:10 PM [facility] Blood BLOOD SPECIMEN / Unknown Venipuncture / Unknown 08/30/2021 11:36 AM [employer] 08/30/2021 11:46 AM [employer] Tiffanie Nguyen [employer]-HOME EXTENSION AGENT LAB - CHEMISTRY ORDERABLES Performing Organization Address [facility]/ZIP Co de Phone Number [facility] [address] [place] [address], [facility] [phone] * (ABNORMAL) LIPID PROFILE (08/30/2021 11:36 AM [employer]) Cholesterol Total 207(H) <200 mg/dL 08/30/2021 12:10 PM [facility] HDL 38(L) >40 mg/dL 08/30/2021 12:10 PM [facility] Comment: ATP III Classification of HDL Cholesterol: ? <40 mg/dL: ??Considered a major risk factor. ? >60 mg/dL: ??Considered a negative risk factor. ? LDL Calculated 152(H) <100 mg/dL 08/30/2021 12:10 PM [facility] Comment: ATP III Classification of LDL Cholesterol: ?<100 mg/dL: ??Optimal ? 100 - 129 mg/dL: ??Near Optimal/Above Optimal ? 130 - 159 mg/dL: ??Borderline High ? 160 - 189 mg/dL: ??High ?>190 mg/dL: ??Very High ? Triglycerides 87 <150 mg/dL 08/30/2021 12:10 PM [facility] Comment: ATP III Classification of Triglycerides: ?<150 mg/dL: ??Normal ? 150 - 199 mg/dL: ??Borderline High ? 200 - 400 mg/dL: ??High ?>500 mg/dL: ??Very High Blood BLOOD SPECIMEN / Unknown Venipuncture / Unknown 08/30/2021 11:36 AM [employer] 08/30/2021 11:46 AM [employer] Tiffanie Nguyen APRN-HOME EXTENSION AGENT LAB - CHEMISTRY ORDERABLES Performing Organization Address [facility]/State/ZIP Co de Phone Number [facility] [address] [place] [address], [facility] [phone] * HEPATITIS C ANTIBODY (09/09/2019 12:42 PM [employer]) Hepatitis C Antibody Non-react robyn Non-reac tive 09/09/2019 1:[address] [employer] [facility] Comment: Hepatitis C Antibody screen indicates no serologic evidence of past or current infection with Hepatitis C Virus. Patients with unexplained liver disease who are immunocompromised or suspected of having acute Hepatitis C infection may benefit from Nucleic Acid Test (MEL) for Hepatitis C Viral RNA to confirm Hepatitis C status. Blood BLOOD SPECIMEN / Unknown Venipuncture / Unknown 09/09/2019 12:42 PM [employer] 09/09/2019 12:51 PM [employer] LaraDawn Nguyen APRN-HOME EXTENSION AGENT LAB - CHEMISTRY ORDERABLES Performing Organization Address City/[facility]/ZIP Co de Phone Number [address] [phone] * HIV-1 HIV-2 ANTIGEN/ANTIBODY (03/22/2019 3:00 PM CDT) HIV Antigen/Antibod y 1 & 2 Non-reacti ve Non-react robyn 03/22/2019 3:[address] [facility] Comment: Neither HIV-1 p24 Antigen nor HIV-1/HIV-2 Antibodies are detected. ? Blood BLOOD SPECIMEN / Unknown Venipuncture / Unknown 03/22/2019 3:00 PM CDT 03/22/2019 3:11 PM CDT Tiffanie Nguyen [employer]-HOME EXTENSION AGENT LAB - HEMATOLOG Y ORDERAB[place] [address], [facility] [phone] from Last 3 Months or Most Recently Relevant to Health Maintenance Advance Directives Documents on File Type Date Recorded Patient Jacquard Fixer Expl anation Adv Directive/Living Will/POA 10/27/2019 2:34 PM BMT * Full Code (Latest Code Status on File) Date Activated Date Inactivated Comments 03/06/2020 6:02 PM 04/05/2020 10:21 PM * Full Code Date Activated Date Inactivated Comments 02/25/2020 3:28 PM 03/06/2020 6:02 PM * Full Code Date Activated Date Inactivated Comments 10/13/2019 3:14 PM 10/29/2019 5:21 PM * Full Code Date Activated Date Inactivated Comments 08/17/2019 6:25 PM 08/19/2019 4:51 PM Care Teams Mapping Supervisor Relationship Specialty Start Date End Date Ran Nuñez MD [address] [place] [address] PCP - General Family Medicine 08/30/21 Hillary Apple MD [address] [place] [address] Hematology and Oncology 03/17/19 Tony Dumont MD [address] [place] [address] Hematology and Oncology 03/17/19 Maryjo Reinoso, DIGITAL MARKETING STRATEGIST [employer] 03/17/19 Madyson Clay, PharmD 03/17/19 Dana Lala, [employer]-EMERGENCY ROOM CLINICIAN [address] [place] [address] Oncology 03/17/19 Tiffanie Nguyen, [employer]-HOME EXTENSION AGENT [address] [facility] [address] [address] Family Medicine 03/17/19 Cesar Tavares MD [address] [facility] [address] [address] Referring Physician Medical Oncology 03/23/19 Joy Bob 09/22/19 Tony Dumont MD [address] [place] [address] Hematology and Oncology 10/30/21 Shalini Segal MD [facility] HEMATOLOGY & [place] [address] Research Leader/Oncologist Hematology and Oncology 10/30/21 Stefanie Burns, ROSEMARY Registered Nurse 10/30/21 Fatemeh Bolaños, RN Registered Nurse 10/30/21 Chandana Lu MD [address] [place] [address] Orthopedic Surgery 03/30/24
--- OUTSIDE RECORDS SUMMARY | 2024-08-18 00:19 | XMS_ITS | Clinical Summary ---
Author Organization [facility] Address [address] [place] [address] Care Team Providers Care Tenderizer Tender Name Role Phone Hillary Apple MD Unavailable [phone] Tony Dumont MD Unavailable [phone] Maryjo ReinosoW Unavailable Unavailable Madyson Clay PharmD Unavailable Unavaila Dana Galicia CONTACT CENTER CONSULTANT-CORN COOKER Unavailable [phone] Tiffanie Ngyuen CONTACT CENTER CONSULTANT-BULB GROWER Unavailable [phone] Cesar Tavares MD Unavailable [phone] Joy Bob Unavailable Fanta Ran Augustine MD Primary Care Provider Tony Dumont MD Unavailable [phone] Shalini Segal MD Unavailable [phone] Stefanie Burns RN Unavailable Unavaila Fatemeh Kelly RN Unavailable Unavailable Chandana Lu MD Unavailable [phone] Source Comments [facility],non-owned Affiliates and Associated Physician Practices is amultiple site organization consisting of ambulatory clinics and hospital sitesin [place], [place] and [place]. This disclosure is being madepursuant to the Care Everywhere program and may not contain all information available regarding this patient. Last updated 18.[facility] Allergies Active Allergy Reactions Criticality Noted Date [...] glass opacity present on imaging of lung Encounters Date Type Department Care Team Description 07/12/2024 Telephone [facility] - Centralized Scheduling [address] [place] [phone] Andrew Francis MD Reschedule Appointment 07/12/2024 Travel from Last 3 Months Immunizations Name Administration Dates Next Due COVID [...] Zoster Hzv Vacc Recombinant Inj Im 09/28/2020, Family History Medical History Relation Name Comments Alcohol abuse Father Sudden Father Diabetes - Type 2 Neg Hx Relation Name Status Comments Father Social History Tobacco Use Types Packs/Day Years [...] 37.2 ??C (99 ??F) 06/30/2022 6:32 PM EMPLOYEE COMMUNICATIONS MANAGER Respiratory Rate 17 02/26/2024 8:05 AM CDT Oxygen Saturation 95% 02/26/2024 8:05 AM CDT Inhaled Oxygen Concentration 50% 09/2019 12:16 AM CDT Weight 114.4 kg (252 lb 3.2 oz) 02/26/2024 8:05 AM CDT Height 172.7 cm (5' 8 ) 02/26/2024 8:05 AM CDT Body Mass Index 38.35 02/26/2024 8:05 AM CDT Plan of Treatment Upcoming Encounters Date Type Department Care Team (Late st Contact Info) Description 08/26/2024 11:00 AM EMPLOYEE COMMUNICATIONS MANAGER Office Visit [facility] - Pulmonology [address] [place] [address], [place] [address] Andrew Francis MD [address] OF PULMONARY/[place] [address] Health Maintenance Due Date Last Done Comments COLOGUARD (AGES 45-75) - COLON CA SCREENING 1970 COLON MONITORING 1970 COLONOSCOPY - COLON CA SCREENING 1970 CT COLONOGRAPHY - COLON CA SCREENING 1970 Colorectal Cancer Screening 1970 FIT - COLON CA SCREENING 1970 FLEX SIG - COLON CA SCREENING 1970 Opioid Medication Agreement - Annual 1970 MENINGOCOCCAL (Group B) VACCINE (1 of 5 - Increased Risk) 1980 COVID-19 VACCINE (6 - season) 2024 05/22/2022, 12/20/2021, 08/30/2021, Additional history exists INFLUENZA VACCINE (#1) 2024 05/22/2022, 2018 DEPRESSION SCREENING 08/04/2024 06/30/2022 MEDICARE AWV ? CALENDAR YEAR 2024 SCREENING FOR DIABETES 08/30/2024 , 02/15/2021, 12/20/2020, Additional history exists MENINGOCOCCAL VACCINE (3 - Risk 2-dose series) 08/31/2025 08/31/2020, 06/16/2020, 08/11/2019 LIPID TESTING 08/30/2026 08/30/2021 PNEUMOCOCCAL VACCINE 50+ (4 of 4 - PCV20 or PCV21) 08/30/2026 08/30/2021, 02/15/2021, 08/31/2020, Additional history exists PNEUMOCOCCAL VACCINE (4 of 4 - PCV20 or PCV21) 08/30/2026 08/30/2021, 02/15/2021, 08/31/2020, Additional history exists DTAP/TDAP/TD VACCINES (4 - Tdap) 02/15/2031 02/15/2021, 09/28/2020, 07/14/2020 HIV SCREENING Completed 03/22/2019 HEPATITIS C SCREENING Completed 09/09/2019, 019 ZOSTER VACCINE Completed 09/28/2020, 07/14/2020 HIB VACCINE Completed 02/15/2021, 08/05, 06/16/2020, Additional history exists HEPATITIS B VACCINE Completed 08/30/2021, 09/28/2020, 07/14/2020 HPV VACCINE Aged Out No longer eligi ble based on patient's age to complete this topic Medical Devices Implanted Type Area Plan Examiner Device Identifier Shelf Expiration Date Model / Serial / Lot Tray Cath 12fr 23cm Hkmn Trifusion 3 Lum Implanted:Qty: 1 on 09/17/2019 at [facility] [employer] 05/03/2021 [id number] / / [id number] Procedures Procedure Name Priority Date/Time Associated Diagnosis Comments COMPREHENSIVE METABOLIC PANEL STAT 08/30/2021 11:36 AM EMPLOYEE COMMUNICATIONS MANAGER Diffuse large B-cell lymphoma, unspecified body region (HCC) LIPID PROFILE Routine 08/30/2021 11:36 AM EMPLOYEE COMMUNICATIONS MANAGER Diffuse large B-cell lymphoma, unspecified body region (HCC) S/P autologous bone marrow transplantation (HCC) HEPATITIS C ANTIBODY Routine 09/09/2019 12:42 PM EMPLOYEE COMMUNICATIONS MANAGER Pre-transplant evaluation for stem cell transplant HIV-1 HIV-2 ANTIGEN/ANTIBODY Routine 03/22/2019 3:00 PM CDT Diffuse large B-cell lymphoma, unspecified body region (HCC) from Last 3 Months or Most Recently Relevant to Health Maintenance Results * (ABNORMAL) COMPREHENSIVE METABOLIC PANEL (08/30/2021 11:36 AM EMPLOYEE COMMUNICATIONS MANAGER) BUN 12 7 - 26 mg/dL 08/30/2021 12:10 PM [facility] Creatinine 1.02 0.71 - 1.16 mg/dL 08/30/2021 12:10 PM [facility] Sodium 140 136 - 145 mmol/L 08/30/2021 12:10 PM [facility] Potassium 4.8(H) 3.5 - 4.5 mmol/L 08/30/2021 12:10 PM [facility] Chloride 107 98 - 107 mmol/L 08/30/2021 12:10 PM EMPLOYEE COMMUNICATIONS MANAGER [facility] CO2 23 22 - 29 mmol/L 08/30/2021 12:10 PM [facility] Glucose 99 70 - 115 mg/dL 08/30/2021 12:10 PM [facility] Calcium 9.4 8.4 - 10.2 mg/dL 08/30/2021 12:10 PM [facility] Protein Total 6.6 6.0 - 8.3 g/dL 08/30/2021 12:10 PM [facility] Albumin 3.9 3.4 - 5.0 g/dL 08/30/2021 12:10 PM [facility] Bilirubin Total 0.4 0.2 - 1.2 mg/dL 08/30/2021 12:10 PM [facility] Alkaline Phosphatase 113 40 - 150 U/L 08/30/2021 12:10 PM [facility] ALT 38 5 - 55 U/L 08/30/2021 12:10 PM [facility] AST 26 5 - 34 U/L 08/30/2021 12:10 PM [facility] Anion Gap 15 8 - 18 08/30/2021 12:10 PM [facility] BUN/Creatinine Ratio 12 7 - 23 08/30/2021 12:10 PM [facility] Osmolality Calculated 290 270 - 300 mOsm/kg 08/30/2021 12:10 PM [facility] Albumin/Globulin Ratio 1.4 1.1 - 2.3 08/30/2021 12:10 PM [facility] eGFR by CKD-EPI 85(L) >=90 mL/min/1.7 3 m2 08/30/2021 12:10 PM [facility] Blood BLOOD SPECIMEN / Unknown Venipuncture / Unknown 08/30/2021 11:36 AM EMPLOYEE COMMUNICATIONS MANAGER 08/30/2021 11:46 AM EMPLOYEE COMMUNICATIONS MANAGER Tiffanie Nguyen CONTACT CENTER CONSULTANT-BULB GROWER LAB - CHEMISTRY ORDERABLES [facility] [address] [place] [address], [facility] [phone] * (ABNORMAL) LIPID PROFILE (08/30/2021 11:36 AM EMPLOYEE COMMUNICATIONS MANAGER) Cholesterol Total 207(H) <200 mg/dL 08/30/2021 12:10 PM [facility] HDL 38(L) >40 mg/dL 08/30/2021 12:10 PM [facility] Comment: ATP III Classification of HDL Cholesterol: ? <40 mg/dL: ??Considered a major risk factor. ? >60 mg/dL: ??Considered a negative risk factor. ? LDL Calculated 152(H) <100 mg/dL 08/30/2021 12:10 PM [facility] Comment: ATP III Classification of LDL Cholesterol: ?<100 mg/dL: ??Optimal ? 100 - 129 mg/dL: ??Near Optimal/Above Optimal ? 130 - 159 mg/dL: ??Borderline High ? 160 - 189 mg/dL: ??High ?>190 mg/dL: ??Very High ? Triglycerides 87 <150 mg/dL 08/30/2021 12:10 PM [facility] Comment: ATP III Classification of Triglycerides: ?<150 mg/dL: ??Normal ? 150 - 199 mg/dL: ??Borderline High ? 200 - 400 mg/dL: ??High ?>500 mg/dL: ??Very High Blood BLOOD SPECIMEN / Unknown Venipuncture / Unknown 08/30/2021 11:36 AM EMPLOYEE COMMUNICATIONS MANAGER 08/30/2021 11:46 AM EMPLOYEE COMMUNICATIONS MANAGER Tiffanie Nguyen CONTACT CENTER CONSULTANT-BULB GROWER LAB - CHEMISTRY ORDERABLES Performing Organization Address [facility]/State/[facility] Co de Phone Number [facility] [address] [address], [facility] [phone] * HEPATITIS C ANTIBODY (09/09/2019 12:42 PM EMPLOYEE COMMUNICATIONS MANAGER) [facility] Hepatitis C Antibody Non-react robyn Non-reac tive 09/09/2019 1:46 PM EMPLOYEE COMMUNICATIONS MANAGER [facility] Comment: Hepatitis C Antibody screen indicates no serologic evidence of past or current infection with Hepatitis C Virus. Patients with unexplained liver disease who are immunocompromised or suspected of having acute Hepatitis C infection may benefit from Nucleic Acid Test (MEL) for Hepatitis C Viral RNA to confirm Hepatitis C status. Blood BLOOD SPECIMEN / Unknown Venipuncture / Unknown 09/09/2019 12:42 PM EMPLOYEE COMMUNICATIONS MANAGER 09/09/2019 12:51 PM EMPLOYEE COMMUNICATIONS MANAGER Tiffanie Nguyen CONTACT CENTER CONSULTANT-BULB GROWER LAB - CHEMISTRY ORDERABLES Performing Organization Address [facility] Co de Phone Number [address] [phone] * HIV-1 HIV-2 ANTIGEN/ANTIBODY (03/22/2019 3:00 PM CDT) HIV Antigen/Antibod y 1 & 2 Non-reacti ve Non-react robyn 03/22/2019 3:59 PM CDT [facility] Comment: Neither HIV-1 p24 Antigen nor HIV-1/HIV-2 Antibodies are detected. ? Blood BLOOD SPECIMEN / Unknown Venipuncture / Unknown 03/22/2019 3:00 PM CDT 03/22/2019 3:11 PM CDT Tiffanie Nguyen CONTACT CENTER CONSULTANT-BULB GROWER LAB - HEMATOLOG Y ORDERABLES Performing Organization Address City/[facility]/ZIP Co de Phone Number [address] [phone] from Last 3 Months or Most Recently Relevant to Health Maintenance Advance Directives Documents on File Type Date Recorded Patient Patient Financial Advocate Expl anation Adv Directive/Living Will/POA 10/27/2019 2:34 [...] 6:25 PM 08/19/2019 4:51 PM Care Teams Tenderizer Tender Relationship Specialty Start Date End Date Ran Nuñez MD [address] [place] [address] PCP - General Family Medicine 08/30/21 Hillary Apple MD [facility] [place] [address] Hematology and Oncology 03/17/19 Tony Dumont MD [facility] [place] [address] Hematology and Oncology 03/17/19 Maryjo Reinoso, REYNA Ms Sql Server Developer 03/17/19 Madyson Clay, PharmD 03/17/19 Dana Lala, CONTACT CENTER CONSULTANT-CORN COOKER [address] [facility] 2[place] [address] Oncology 03/17/19 Tiffanie Nguyen, CONTACT CENTER CONSULTANT-BULB GROWER [address] [facility] 2nd [place] [address] Family Medicine 03/17/19 Cesar Tavares MD [address] [facility] 2nd [place] [address] Referring Physician Medical Oncology 03/23/19 Joy Bob 09/22/19 Tony Dumont MD [address] [place] [address] Hematology and Oncology 10/30/21 Shalini Segal MD [address] [facility] OF HEMATOLOGY & [place] [address] Beef Skinner/Oncologist Hematology and Oncology 10/30/21 Stefanie Burns, RN Registered Nurse 10/30/21 Fatemeh Bolaños, RN Registered Nurse 10/30/21 Chandana Lu MD [address] [place], [place] [id number] Orthopedic Surgery 03/30/24
--- OUTSIDE RECORDS SUMMARY | 2024-08-18 00:20 | XMS_ITS | Encounter Summary ---
Author Organization [facility] Address [address] [facility] [place] [address] Care Team Providers Care Piece Work Checker Name Role Phone Hillary Apple MD Unavailable [phone] Tony Dumont MD Unavailable Maryjo ReinosoW Unavailable Unavailable Madyson Clay PharmD Unavailable Unavaila Dana Galicia QUALITY CONTROL MICROBIOLOGIST-REFERENCE LIBRARIAN Unavailable [phone] Tiffanie Nguyen QUALITY CONTROL MICROBIOLOGIST-CARDIAC NURSE SPECIALIST Unavailable Cesar Tavares MD Unavailable [phone] Joy Bob Unavailable Fanta Ran Augustine MD Primary Care Provider Tony Dumont MD Unavailable [phone] Shalini Segal MD Unavailable Stefanie Burns RN Unavailable Unavaila Fatemeh Kelly RN Unavailable Unavailable Glenn Hernandez MD Unavailable [phone] Reason for Visit * Reason Onset Date Comments MEDICATION REFILL 07/15/2023 Encounter Details Date Type Department Care Team (Late st Contact Info) Description 07/15/2023 Refill [facility] - Pulmonology [address] [place] [address], [place] [phone] Andrew Francis MD [address] [place] [address] 2[address] DIV OF PULMONARY/[place] [address] MEDICATION REFILL Social History Tobacco Use Types Packs/Day Years Used Date Smoking Tobacco: Former Cigarettes 0.5 18 1 984 - 2001 Smokeless Tobacco: Former Chew Quit: 2017 Alcohol Use Standard Drinks/Week Comments Not Currently 0 (1 standard drink = 0.6 oz pur e alcohol) PHQ-2 Answer Date Recorded PHQ2 TOTAL SCORE 0 06/30/2022 Sex and Gender Information Value Date Recorded Sex Assigned at Male 03/27/2022 11:34 AM CDT Gender Identity Male 03/27/2022 11:34 AM CDT Sexual Orientation Straight 03/27/2022 11 :34 AM CDT documented as of this encounter Functional Status Functional Status Response Date of [...] person have difficulty concentrating/remembering/making decisions? No 02/25/2020 documented as of this encounter Miscellaneous Notes * Telephone Encounter - Thea Lanza RN - 07/22/2023 11:19 AM ECHO VASC TECH Refill Request Marcello Guillen CARMELO: 12/19/22 NOV scheduled: 08/07/2023 LRF: 01/18/23 Qty Disp: 10.2g # of refills: 0 Allergies: Allergies Allergen Reactions ??? Adhesive Sensitivity Urticaria and Other Electrodes -- welps where stickers are Also, use paper tape Pended Medication Order: Requested Prescriptions Pending Prescriptions Disp Refills ??? Symbicort 160-4.5 MCG/ACT inhaler 10.2 g 0 Sig: Inhale 2 (two) puffs by mouth 2 times daily INHALE 2 PUFFS BY MOUTH TWICE DAILY VASC TECH documented in this encounter Plan of Treatment Upcoming Encounters Date Type Department Care Team (Late st Contact Info) Description 08/26/2024 11:00 AM ECHO VASC TECH Office Visit [facility] - Pulmonology [address] [facility], [place] [address] Andrew Francis MD [facility] 2L DIV OF PULMONARY/[place] [address] documented as of this encounter Visit Diagnoses Not on filedocumented in this encounter Care Teams Piece Work Checker Relationship Specialty Start Date End Date Ran Nuñez MD [address] [place] [phone] PCP - General Family Medicine 08/30/21 [place] [address] [place] [phone] [facility] 03/04/23 08/21/23 Hillary Apple MD [address] [place] [address] Hematology and Oncology 03/17/19 Tony Dumont MD [facility] [place] [address] Hematology and Oncology 03/17/19 Maryjo Reinoso, TORTILLA MAKER Javascript Web Developer 03/17/19 Madyson Clay, PharmD 03/17/19 Dana Lala APRN-REFERENCE LIBRARIAN [address] [facility] [place] [address] Oncology 03/17/19 Tiffanie Nguyen APRN-CARDIAC NURSE SPECIALIST [address] [facility] [place] [address] Family Medicine 03/17/19 Cesar Tavares MD [address] 2nd [place] [address] Referring Physician Medical Oncology 03/23/19 Joy Bob 09/22/19 Tony Dumont MD [address] [place] [address] Hematology and Oncology 10/30/21 Shalini Segal MD [address] [facility] OF HEMATOLOGY & [place] [address] Magnetic Prospecting Operator/Oncologist Hematology and Oncology 10/30/21 Stefanie Burns, RN Registered Nurse 10/30/21 Fatemeh Bolaños, RN Registered Nurse 10/30/21 documented as of this encounter
--- OUTSIDE RECORDS SUMMARY | 2024-08-18 00:20 | XMS_ITS | Encounter Summary ---
Author Organization [facility] Address [address] [facility] [place] [place] [address] Care Team Providers Care Cable Engineer Name Role Phone Hillary Apple MD Unavailable [phone] Tony Dumont MD Unavailable Maryjo ReinosoW Unavailable Unavailable Madyson Clay PharmD Unavailable Unavaila Dana Galicia NETWORK SERVICES PROJECT MANAGER-CUSTOMER SERVICE RECEPTIONIST Unavailable [phone] Tiffanie Nguyen NETWORK SERVICES PROJECT MANAGER-OUTCOMES ANALYST Unavailable Cesar Tavares MD Unavailable [phone] Joy Bob Unavailable Fanta Ran Augustine MD Primary Care Provider Tony Dumont MD Unavailable Shalini Segal MD Unavailable Stefanie Burns RN Unavailable Unavaila Fatemeh Kelly RN Unavailable Unavailable Encounter Details Date Type Department Care Team (Late st Contact Info) Description 03/01/2024 Orders Only [facility] - Pulmonology [address] [place] [address], [place] [phone] Andrew Francis MD [address] [place] [address] 2L DIV OF PULMONARY/CRITICAL CARE [place], [place] [id number] Social History Tobacco Use Types Packs/Day Years Used Date Smoking Tobacco: Former Cigarettes 0.5 18 1 984 - 2002 Smokeless Tobacco: Former Chew Quit: 2017 Alcohol [...] No 02/25/2020 documented as of this encounter Plan of Treatment Upcoming Encounters Date Type Department Care Team (Late st Contact Info) Description 08/26/2024 11:00 AM UTILIZATION MANAGEMENT NURSE Office Visit [facility] - Pulmonology [address] [place] [address], [place] [address] Andrew Francis MD [address] [place] [address] 2L DIV OF PULMONARY/[place] [address] documented as of this encounter Visit Diagnoses Not on filedocumented in this encounter Care Teams Cable Engineer Relationship Specialty Start Date End Date Ran Nuñez MD [address] [place] [address] PCP - General Family Medicine 08/30/21 Hillary Apple MD [address] [place] [address] Hematology and Oncology 03/17/19 Tony Dumont MD [address] [place] [address] Hematology and Oncology 03/17/19 Maryjo Reinoso, DANCE THERAPIST Toppiece Chopper 03/17/19 Madyson Clay, PharmD 03/17/19 Dana Lala, NETWORK SERVICES PROJECT MANAGER-CUSTOMER SERVICE RECEPTIONIST [address] [place] [address] Oncology 03/17/19 Tiffanie Nguyen, NETWORK SERVICES PROJECT MANAGER-OUTCOMES ANALYST [address] [place] [address] Family Medicine 03/17/19 Cesar Tavares MD [address] [facility] 2[place] [address] Referring Physician Medical Oncology 03/23/19 Joy Bob 09/22/19 Tony Dumont MD [address] [place] [address] Hematology and Oncology 10/30/21 Shalini Segal MD [address] [place] [address] OF HEMATOLOGY & [place] [address] Informatics Analyst/Oncologist Hematology and Oncology 10/30/21 Stefanie Burns, RN Registered Nurse 10/30/21 Fatemeh Bolaños, RN Registered Nurse 10/30/21 documented as of this encounter
--- OUTSIDE RECORDS SUMMARY | 2024-08-18 00:20 | XMS_ITS | Encounter Summary ---
Author Organization [facility] Address [address] [facility] [place] [address] Care Team Providers Care Bus Greaser Name Role Phone Hillary Apple MD Unavailable [phone] Tony Dumont MD Unavailable [phone] Maryjo ReinosoW Unavailable Unavailable Madyson Clay PharmD Unavailable Unavaila Dana Galicia STYLIST ASSISTANT-METAL ANNEALER Unavailable [phone] Tiffanie Nguyen STYLIST ASSISTANT-ZYGLO INSPECTOR Unavailable [phone] Cesar Tavares MD Unavailable [phone] Joy Bob Unavailable Fanta Ran Augustine MD Primary Care Provider Tony Dumont MD Unavailable [phone] Shalini Segal MD Unavailable [phone] Stefanie Burns RN Unavailable Unavaila Fatemeh Kelly RN Unavailable Unavailable Chandana Lu MD Unavailable [phone] Reason for Visit * Reason Onset Date Comments Medical Clearance 03/17/2024 Encounter Details Date Type Department Care Team (Late st Contact Info) Description 03/17/2024 Telephone [facility] - Pulmonology [address] [place] [address], [place] [address] Andrew Francis MD [address] [place] [address] 2[address] DIV OF PULMONARY/[place] [address] Medical Clearance Social History Tobacco Use Types Packs/Day Years [...] Telephone Encounter - Thea Lanza RN - 03/30/2024 10:58 AM CDT Visit note with Attestation sent to as requested. * Telephone Encounter - Thea Lanza RN - 03/17/2024 11:54 AM CDT Patient called requesting written documentation stating that he is ok to have hip surgery from Pulmonary provider. Please and Thank you documented in this encounter Plan of Treatment Upcoming Encounters Date Type Department Care Team (Late st Contact Info) Description 08/26/2024 11:00 AM DUSTER TENDER Office Visit [facility] - Pulmonology [address] [facility], [place] [address] Andrew Francis MD [address] [place] [address] 2[address] DIV OF PULMONARY/[place] [address] documented as of this encounter Visit Diagnoses Not on filedocumented in this encounter Care Teams Bus Greaser Relationship Specialty Start Date End Date Ran Nuñez MD [address] [place] [address] PCP - General Family Medicine 08/30/21 Hillary Apple MD [address] [place] [address] Hematology and Oncology 03/17/19 Tony Dumont MD [address] [place] [address] Hematology and Oncology 03/17/19 Maryjo Reinoso, HISTORIC CLOTHING AND COSTUME MAKER Deck Worker 03/17/19 Madyson Clay, PharmD 03/17/19 Dana Lala, STYLIST ASSISTANT-METAL ANNEALER [facility] [address] Oncology 03/17/19 Tiffanie Nguyen, STYLIST ASSISTANT-ZYGLO INSPECTOR [facility] [address]nd [place] [address] Family Medicine 03/17/19 Cesar Tavares MD [address] [facility] 2nd [place] [address] Referring Physician Medical Oncology 03/23/19 Joy Bob 09/22/19 Tony Dumont MD [address] [place] [address] Hematology and Oncology 10/30/21 Shalini Segal MD [address] [facility] OF HEMATOLOGY & [place] [address] Traffic Circuit Engineer/Oncologist Hematology and Oncology 10/30/21 Stefanie Burns, RN Registered Nurse 10/30/21 Fatemeh Bolaños, RN Registered Nurse 10/30/21 Chandana Lu MD [address] [place], [place] [address] Orthopedic Surgery 03/30/24 documented as of this encounter
--- OUTSIDE RECORDS SUMMARY | 2024-08-18 00:20 | XMS_ITS | Patient Health Summary ---
Author Organization [facility] Address [address] [place] [address] Care Team Providers Care Marketing Communications Assistant Name Role Phone Hillary Apple MD Unavailable [phone] Tony Dumont MD Unavailable [phone] Maryjo ReinosoW Unavailable Unavailable Madyson Clay PharmD Unavailable Unavaila Dana Galicia ADVERTISING SALES AGENT-THEATRICAL SCENIC DESIGNER Unavailable [phone] Tiffanie Mcpherson ADVERTISING SALES AGENT-FEEDER/FOLDER Unavailable [phone] Cesar Tavares MD Unavailable [phone] Joy Bob Unavailable Fanta Ran Augustine MD Primary Care Provider Tony Dumont MD Unavailable [phone] Shalini Segal MD Unavailable [phone] Stefanie Burns RN Unavailable Unavaila Fatemeh Kelly RN Unavailable Unavailable Chandana Lu MD Unavailable [phone] Note from [facility],non-owned Affiliates and Associated Physician Practices is amultiple site organization consisting of ambulatory clinics and hospital sitesin [place], [place], [place] and [place]. This disclosure is being madepursuant to the Care Everywhere program and may not contain all information available regarding this patient. Last updated 18.[facility] Allergies * Adhesive Sensitivity(Urticaria,Other) -Medium Criticality Medications * Be aware that medications may not be up to date on this document. Alwaysverify current medications with the patient. * multivitamin daily tablet Take 1 (one) tablet by mouth daily with food * acetaminophen (TYLENOL) 325 MG tablet(Started 04/05/2020) Take 1 tablet by mouth every 4 hours as needed Maximum allowable Acetaminophen amount = 4 Grams (4000 mg) / 24 hours. * albuterol HFA (PROVENTIL;VENTOLIN;PROAIR) 108 (90 Base) MCG/ACT inhaler (Started 04/05/2020) Inhale 2 puffs by mouth every 4 hours * rOPINIRole (REQUIP) 0.25 MG tablet(Started 01/02/2021) Take 1 (one) tablet by mouth at bedtime Reasons: Restless Leg Syndrome 3 refills by 01/02/2022 * penicillin V potassium (VEETIDS) 250 MG tablet(Started 05/10/2021) Take 1 (one) tablet by mouth 2 times daily 11 refills by 05/10/2022 * escitalopram (LEXAPRO) 20 MG tablet(Started 08/10/2021) TAKE 1 TABLET BY MOUTH EVERY DAY 11 refills by 08/10/2022 * clonazePAM (KLONOPIN) 1 MG tablet(Started 08/15/2021) Take 1 (one) tablet by mouth at bedtime * HYDROcodone-acetaminophen (NORCO) 5-325 MG tablet Take 1 (one) tablet by mouth every 6 hours as needed for Pain * benzonatate (Tessalon) 200 MG capsule(Started 06/30/2022) Take 1 (one) capsule by mouth 3 times daily as needed for Cough * albuterol HFA (Ventolin HFA) 108 (90 Base) MCG/ACT inhaler(Started 01/18/2023) Inhale 2 (two) puffs by mouth every 4 hours as needed 4 refills by 01/18/2024 * cyanocobalamin 100 MCG tablet Take 1 (one) tablet by mouth once daily * ondansetron (Zofran) 8 MG tablet(Started 01/16/2023) * acyclovir (Zovirax) 400 MG tablet(Started 02/20/2023) Take 2 (two) tablets by mouth 2 times daily 3 refills by 02/20/2024 * Azcrnsysibi-Konuskjlz-Nbgtjh (Trelegy Ellipta) 100-62.5-25 MCG/ACT(Started 03/01/2024) Inhale 1 (one) puff by mouth once daily 5 refills by 03/01/2025 Active Problems Problem Noted Date Diagnosed Date LISSA (obstructive sleep apnea) 12/24/2021 Back pain 12/24/2021 History of nephrolithiasis 12/24/2021 Restless legs syndrome (RLS) 12/24/2021 Hypersomnia due to medical condition 12/24/2021 Hypoxemia 02/19/2021 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/09/2019 History of marijuana use 06/28/2019 DLBCL (diffuse large B cell lymphoma) 05/24/2019 Asthma 12/03/2017 B-cell lymphoma 04/18/2017 Lymphadenopathy 04/11/2017 Ground glass opacity present on imaging of lung Immunizations * COVID PFIZER BIVALENT 12Y+ 30mcg/0.3ML(Given 05/22/2022) * Covid Pfizer primary Monovalent 12+ yr 0.3ml(Given 12/20/2021) * Covid Pfizer primary monovalent 12+ yr 0.3mL Purple cap(Given 08/30/2021, 12/07/2020, 11/16/2020) * DTAP 5 PERTUSSIS ANTIGENS(Given 02/15/2021, 09/28/2020, 07/14/2020) * HEP A/HEP B(Given 08/30/2021, 09/28/2020, 07/14/2020) * HIB-PRP-T 4 DOSE(Given 02/15/2021, 08/31/2020, 06/16/2020, 08/11/2019) * INFLUENZA VACCINE, HIGH-DOSE, QUADR. (FLUZONE HIGH-DOSE QUADRIVALENT; 65Y+), 0.7 ML (HD-IIV4)(Given 05/22/2022, 05/24/2019) * MENINGOCOCCAL MCV4O(Given 08/31/2020, 06/16/2020, 08/11/2019) * MMR(Given 05/22/2022) * PNEUMOCOCCAL PPSV23(Given 08/30/2021, 08/11/2019) * POLIO IPV(Given 02/15/2021, 09/28/2020, 07/14/2020) * Pneumococcal Pcv13 Conj(Given 02/15/2021, 08/31/2020, 06/16/2020) * Zoster Hzv Vacc Recombinant Inj Im(Given 09/28/2020, 07/14/2020) Social History Tobacco Use Types Packs/Day Years [...] 37.2 ??C (99 ??F) 06/30/2022 6:32 PM BUSINESS ADMINISTRATION PROGRAM CHAIR Respiratory Rate 17 02/26/2024 8:05 AM CDT Oxygen Saturation 95% 02/26/2024 8:05 AM CDT Inhaled Oxygen Concentration 50% 09/2019 12:16 AM CDT Weight 114.4 kg (252 lb 3.2 oz) 02/26/2024 8:05 AM CDT Height 172.7 cm (5' 8 ) 02/26/2024 8:05 AM CDT Body Mass Index 38.35 02/26/2024 8:05 AM CDT Medical Devices Implanted Type Area Engine Pilot Device Identifier Shelf Expiration Date Model / Serial / Lot Tray Cath 12fr 23cm Hkmn Trifusion 3 Lum Implanted:Qty: 1 on 09/17/2019 at [facility] [employer] 05/03/2021 [id number] / / [id number] Procedures * HOME O2 EVAL (DESATURATION SCREEN)(Performed 03/08/2024) Performed for Post-acute sequelae of COVID-19 (PASC) * COMPLETE PFT W/WO BRONCHODILATOR(Performed 10/24/2023) Performed for Hypoxemia * NE POLYSOM 6/>YRS CPAP 4/> PARM(Performed 11/25/2022) Performed for LISSA (obstructive sleep apnea), Sleep related hypoxia * INFLUENZA A+B - POCT (IP) URGENT CARE(Performed 06/30/2022) Performed for Lower respiratory tract infection * NE POLYSOM 6/> YRS 4/> SHARAD(Performed 05/17/2022) Performed for COVID-19 with pulmonary comorbidity, LISSA (obstructive sleep apnea), Sleep related hypoxia, Intolerance of continuous positive airway pressure (CPAP) ventilation, Comorbid sleep-related hypoventilation, Periodic limb movement disorder (PLMD) * ECHO COMPLETE W BUBBLE STUDY(Performed 02/22/2022) Performed for COVID-19 long hauler manifesting chronic dyspnea, HFrEF (heart failure with reduced ejection fraction) ([facility]) * HAEMOPHILUS INFLUENZAE B ANTIBODY(Performed 12/20/2021) Performed for S/P autologous bone marrow transplantation ([facility]) * STREP PNEUMO AB IGG 23 SEROTYPES PANEL(Performed 12/20/2021) Performed for S/P autologous bone marrow transplantation ([facility]) * HEPATITIS B SURFACE ANTIBODY QUANT(Performed 12/20/2021) Performed for S/P autologous bone marrow transplantation ([facility]) * PFT OXYGEN DESATURATION STUDY(Performed 11/13/2021) Performed for Chronic respiratory failure with hypoxia ([facility]) * PFT-LAB(Performed 11/13/2021) Performed for Pneumonia due to COVID-19 virus, Status post autologous bone marrow transplant ([facility]) * FLOW CYTOMETRY T-HELPER CELLS (CD4) COUNT(Performed 08/30/2021) Performed for Diffuse large B-cell lymphoma, unspecified body region ([facility]), S/P autologous bone marrow transplantation ([facility]) * VITAMIN D 25-HYDROXY(Performed 08/30/2021) Performed for Vitamin D deficiency * IRON BLOOD(Performed 08/30/2021) Performed for Iron deficiency anemia, unspecified iron deficiency anemia type * IGG BLOOD(Performed 08/30/2021) Performed for Diffuse large B-cell lymphoma, unspecified body region ([facility]) * PHOSPHORUS BLOOD(Performed 08/30/2021) Performed for Diffuse large B-cell lymphoma, unspecified body region ([facility]) * MAGNESIUM BLOOD(Performed 08/30/2021) Performed for Diffuse large B-cell lymphoma, unspecified body region ([facility]) * CBC W AUTO DIFFERENTIAL(Performed 08/30/2021) Performed for Diffuse large B-cell lymphoma, unspecified body region (HCC) * COMPREHENSIVE METABOLIC PANEL(Performed 08/30/2021) Performed for Diffuse large B-cell lymphoma, unspecified body region (HCC) * LIPID PROFILE(Performed 08/30/2021) Performed for Diffuse large B-cell lymphoma, unspecified body region (HCC), S/P autologous bone marrow transplantation (HCC) * PSA FREE + TOTAL PANEL(Performed 08/30/2021) Performed for Diffuse large B-cell lymphoma, unspecified body region (HCC), S/P autologous bone marrow transplantation (HCC) * VARICELLA ZOSTER ANTIBODY IGG(Performed 08/30/2021) Performed for Diffuse large B-cell lymphoma, unspecified body region (HCC), S/P autologous bone marrow transplantation (HCC) * CT CHEST ABDOMEN PELVIS WO CONT(Performed 08/30/2021) Performed for Diffuse large B-cell lymphoma, unspecified body region (HCC) * SARS-COV-2 (COVID-19) IN HOUSE(Performed 04/21/2021) Performed for Chest congestion * XR CHEST 2VW(Performed 04/21/2021) Performed for Chest congestion * DIFFERENTIAL MANUAL(Performed 02/15/2021) Performed for Diffuse large B-cell lymphoma, unspecified body region (HCC) * IGG BLOOD(Performed 02/15/2021) Performed for Diffuse large B-cell lymphoma, unspecified body region (HCC) * PHOSPHORUS BLOOD(Performed 02/15/2021) Performed for Diffuse large B-cell lymphoma, unspecified body region (HCC) * MAGNESIUM BLOOD(Performed 02/15/2021) Performed for Diffuse large B-cell lymphoma, unspecified body region (HCC) * CBC W AUTO DIFFERENTIAL(Performed 02/15/2021) Performed for Diffuse large B-cell lymphoma, unspecified body region (HCC) * COMPREHENSIVE METABOLIC PANEL(Performed 02/15/2021) Performed for Diffuse large B-cell lymphoma, unspecified body region (HCC) * SARS-COV-2 (COVID-19) ANTIBODY IGG(Performed 02/15/2021) Performed for Pneumonia due to COVID-19 virus * SARS-COV-2 (COVID-19) IN HOUSE(Performed 12/20/2020) Performed for Pneumonia due to COVID-19 virus * DIFFERENTIAL MANUAL(Performed 12/20/2020) Performed for Diffuse large B-cell lymphoma, unspecified body region (HCC) * IGG BLOOD(Performed 12/20/2020) Performed for Diffuse large B-cell lymphoma, unspecified body region (HCC) * PHOSPHORUS BLOOD(Performed 12/20/2020) Performed for Diffuse large B-cell lymphoma, unspecified body region (HCC) * MAGNESIUM BLOOD(Performed 12/20/2020) Performed for Diffuse large B-cell lymphoma, unspecified body region (HCC) * CBC W AUTO DIFFERENTIAL(Performed 12/20/2020) Performed for Diffuse large B-cell lymphoma, unspecified body region (HCC) * COMPREHENSIVE METABOLIC PANEL(Performed 12/20/2020) Performed for Diffuse large B-cell lymphoma, unspecified body region (HCC) * SARS-COV-2 (COVID-19) ANTIBODY IGG(Performed 12/20/2020) Performed for Pneumonia due to COVID-19 virus * SARS-COV-2 (COVID-19) IN HOUSE(Performed 11/16/2020) Performed for Pneumonia due to COVID-19 virus * RBC MORPHOLOGY(Performed 11/16/2020) Performed for Diffuse large B-cell lymphoma, unspecified body region (HCC) * IGG BLOOD(Performed 11/16/2020) Performed for Diffuse large B-cell lymphoma, unspecified body region (HCC) * PHOSPHORUS BLOOD(Performed 11/16/2020) Performed for Diffuse large B-cell lymphoma, unspecified body region (HCC) * MAGNESIUM BLOOD(Performed 11/16/2020) Performed for Diffuse large B-cell lymphoma, unspecified body region (HCC) * CBC W AUTO DIFFERENTIAL(Performed 11/16/2020) Performed for Diffuse large B-cell lymphoma, unspecified body region (HCC) * COMPREHENSIVE METABOLIC PANEL(Performed 11/16/2020) Performed for Diffuse large B-cell lymphoma, unspecified body region (HCC) * SARS-COV-2 (COVID-19) ANTIBODY IGG(Performed 11/16/2020) Performed for Pneumonia due to COVID-19 virus * ECHO COMPLETE W BUBBLE STUDY(Performed 11/16/2020) Performed for Chronic respiratory failure with hypoxia (HCC) * TROPONIN I(Performed 09/28/2020) Performed for Chronic respiratory failure with hypoxia (HCC) * D-DIMER(Performed 09/28/2020) Performed for Chronic respiratory failure with hypoxia (HCC) * FERRITIN(Performed 09/28/2020) Performed for Chronic respiratory failure with hypoxia (HCC) * C-REACTIVE PROTEIN(Performed 09/28/2020) Performed for Chronic respiratory failure with hypoxia (HCC) * RBC MORPHOLOGY(Performed 09/28/2020) Performed for Diffuse large B-cell lymphoma, unspecified body region (HCC) * PHOSPHORUS BLOOD(Performed 09/28/2020) Performed for Diffuse large B-cell lymphoma, unspecified body region (HCC) * MAGNESIUM BLOOD(Performed 09/28/2020) Performed for Diffuse large B-cell lymphoma, unspecified body region (HCC) * CBC W AUTO DIFFERENTIAL(Performed 09/28/2020) Performed for Diffuse large B-cell lymphoma, unspecified body region (HCC) * COMPREHENSIVE METABOLIC PANEL(Performed 09/28/2020) Performed for Diffuse large B-cell lymphoma, unspecified body region (HCC) * IGG BLOOD(Performed 09/28/2020) Performed for Pneumonia due to COVID-19 virus * SARS-COV-2 (COVID-19) ANTIBODY IGG(Performed 09/28/2020) Performed for Pneumonia due to COVID-19 virus * SARS-COV-2 (COVID-19) IN HOUSE(Performed 09/28/2020) Performed for Pneumonia due to COVID-19 virus * B-TYPE NATRIURETIC PEPTIDE(Performed 09/28/2020) Performed for Chronic respiratory failure with hypoxia (HCC) * ERYTHROCYTE SEDIMENTATION RATE(Performed 09/28/2020) Performed for Chronic respiratory failure with hypoxia (HCC) * CT CHEST WO CONTRAST(Performed 09/28/2020) Performed for Pneumonia due to COVID-19 virus * RBC MORPHOLOGY(Performed 08/31/2020) Performed for Diffuse large B-cell lymphoma, unspecified body region (HCC) * PHOSPHORUS BLOOD(Performed 08/31/2020) Performed for Diffuse large B-cell lymphoma, unspecified body region (HCC) * MAGNESIUM BLOOD(Performed 08/31/2020) Performed for Diffuse large B-cell lymphoma, unspecified body region (HCC) * CBC W AUTO DIFFERENTIAL(Performed 08/31/2020) Performed for Diffuse large B-cell lymphoma, unspecified body region (HCC) * COMPREHENSIVE METABOLIC PANEL(Performed 08/31/2020) Performed for Diffuse large B-cell lymphoma, unspecified body region (HCC) * IGG BLOOD(Performed 08/31/2020) Performed for Pneumonia due to COVID-19 virus * SARS-COV-2 (COVID-19) ANTIBODY IGG(Performed 08/31/2020) Performed for Pneumonia due to COVID-19 virus * SARS-COV-2 (COVID-19) IN HOUSE(Performed 08/31/2020) Performed for Pneumonia due to COVID-19 virus * ACTH 60 MINUTES(Performed 07/14/2020) Performed for Anemia due to other cause, not classified, Diffuse large B-cell lymphoma, unspecifiedbody region (HCC), S/P splenectomy, Status post autologous bone marrow transplant (HCC) * SARS-COV-2 (COVID-19) IN HOUSE(Performed 07/14/2020) Performed for Pneumonia due to COVID-19 virus * RBC MORPHOLOGY(Performed 07/14/2020) Performed for Diffuse large B-cell lymphoma, unspecified body region (HCC) * SARS-COV-2 (COVID-19) ANTIBODY IGG(Performed 07/14/2020) Performed for Pneumonia due to COVID-19 virus * IGG BLOOD(Performed 07/14/2020) Performed for Diffuse large B-cell lymphoma, unspecified body region (HCC) * PHOSPHORUS BLOOD(Performed 07/14/2020) Performed for Diffuse large B-cell lymphoma, unspecified body region (HCC) * MAGNESIUM BLOOD(Performed 07/14/2020) Performed for Diffuse large B-cell lymphoma, unspecified body region (HCC) * CBC W AUTO DIFFERENTIAL(Performed 07/14/2020) Performed for Diffuse large B-cell lymphoma, unspecified body region (HCC) * COMPREHENSIVE METABOLIC PANEL(Performed 07/14/2020) Performed for Diffuse large B-cell lymphoma, unspecified body region (HCC) * ACTH CORTISOL BASELINE(Performed 07/14/2020) Performed for Anemia due to other cause, not classified, Diffuse large B-cell lymphoma, unspecifiedbody region (HCC), S/P splenectomy, Status post autologous bone marrow transplant (HCC) * VITAMIN D 1,25 DIHYDROXY(Performed 07/14/2020) Performed for Anemia due to other cause, not classified, Diffuse large B-cell lymphoma, unspecifiedbody region (HCC), S/P splenectomy, Status post autologous bone marrow transplant (HCC) * TRANSFERRIN(Performed 07/14/2020) Performed for Anemia due to other cause, not classified, Diffuse large B-cell lymphoma, unspecifiedbody region (HCC), S/P splenectomy, Status post autologous bone marrow transplant (HCC) * IRON BLOOD(Performed 07/14/2020) Performed for Anemia due to other cause, not classified, Diffuse large B-cell lymphoma, unspecifiedbody region (HCC), S/P splenectomy, Status post autologous bone marrow transplant (HCC) * VITAMIN B12(Performed 07/14/2020) Performed for Anemia due to other cause, not classified, Diffuse large B-cell lymphoma, unspecifiedbody region (HCC), S/P splenectomy, Status post autologous bone marrow transplant (HCC) * RETIC COUNT(Performed 07/14/2020) Performed for Anemia due to other cause, not classified, Diffuse large B-cell lymphoma, unspecifiedbody region (HCC), S/P splenectomy, Status post autologous bone marrow transplant (HCC) * HAPTOGLOBIN(Performed 07/14/2020) Performed for Anemia due to other cause, not classified, Diffuse large B-cell lymphoma, unspecifiedbody region (HCC), S/P splenectomy, Status post autologous bone marrow transplant (HCC) * FOLATE(Performed 07/14/2020) Performed for Anemia due to other cause, not classified, Diffuse large B-cell lymphoma, unspecifiedbody region (HCC), S/P splenectomy, Status post autologous bone marrow transplant (HCC) * SARS-COV-2 (COVID-19) IN HOUSE(Performed 06/16/2020) Performed for Pneumonia due to COVID-19 virus * RBC MORPHOLOGY(Performed 06/16/2020) Performed for Diffuse large B-cell lymphoma, unspecified body region (HCC) * PHOSPHORUS BLOOD(Performed 06/16/2020) Performed for Diffuse large B-cell lymphoma, unspecified body region (HCC) * MAGNESIUM BLOOD(Performed 06/16/2020) Performed for Diffuse large B-cell lymphoma, unspecified body region (HCC) * CBC W AUTO DIFFERENTIAL(Performed 06/16/2020) Performed for Diffuse large B-cell lymphoma, unspecified body region (HCC) * COMPREHENSIVE METABOLIC PANEL(Performed 06/16/2020) Performed for Diffuse large B-cell lymphoma, unspecified body region (HCC) * D-DIMER(Performed 06/16/2020) Performed for Pneumonia due to COVID-19 virus * C-REACTIVE PROTEIN(Performed 06/16/2020) Performed for Pneumonia due to COVID-19 virus * ERYTHROCYTE SEDIMENTATION RATE(Performed 06/16/2020) Performed for Pneumonia due to COVID-19 virus * FERRITIN(Performed 06/16/2020) Performed for Pneumonia due to COVID-19 virus * LDH BLOOD(Performed 06/16/2020) Performed for Pneumonia due to COVID-19 virus * SARS-COV-2 (COVID-19) ANTIBODY IGG(Performed 06/16/2020) Performed for Pneumonia due to COVID-19 virus * IGG BLOOD(Performed 06/16/2020) Performed for Pneumonia due to COVID-19 virus * LAB RESULTS ORDER(Performed 05/18/2020) * RBC MORPHOLOGY(Performed 04/05/2020) * ERYTHROCYTE SEDIMENTATION RATE(Performed 04/05/2020) * CBC W AUTO DIFFERENTIAL(Performed 04/05/2020) * PHOSPHORUS BLOOD(Performed 04/05/2020) * MAGNESIUM BLOOD(Performed 04/05/2020) * LDH BLOOD(Performed 04/05/2020) * FERRITIN(Performed 04/05/2020) * D-DIMER(Performed 04/05/2020) * COMPREHENSIVE METABOLIC PANEL(Performed 04/05/2020) * C-REACTIVE PROTEIN(Performed 04/05/2020) * RBC MORPHOLOGY(Performed 04/03/2020) * IGG BLOOD(Performed 04/03/2020) * PHOSPHORUS BLOOD(Performed 04/03/2020) * MAGNESIUM BLOOD(Performed 04/03/2020) * LDH BLOOD(Performed 04/03/2020) * FERRITIN(Performed 04/03/2020) * ERYTHROCYTE SEDIMENTATION RATE(Performed 04/03/2020) * D-DIMER(Performed 04/03/2020) * COMPREHENSIVE METABOLIC PANEL(Performed 04/03/2020) * CBC W AUTO DIFFERENTIAL(Performed 04/03/2020) * C-REACTIVE PROTEIN(Performed 04/03/2020) * PHOSPHORUS BLOOD(Performed 03/31/2020) * MAGNESIUM BLOOD(Performed 03/31/2020) * LDH BLOOD(Performed 03/31/2020) * COMPREHENSIVE METABOLIC PANEL(Performed 03/31/2020) * D-DIMER(Performed 03/31/2020) * RBC MORPHOLOGY(Performed 03/31/2020) * ERYTHROCYTE SEDIMENTATION RATE(Performed 03/31/2020) * CBC W AUTO DIFFERENTIAL(Performed 03/31/2020) * FERRITIN(Performed 03/31/2020) * C-REACTIVE PROTEIN(Performed 03/31/2020) * SARS-COV-2 (COVID-19) IN HOUSE(Performed 03/29/2020) * RBC MORPHOLOGY(Performed 03/29/2020) * PHOSPHORUS BLOOD(Performed 03/29/2020) * MAGNESIUM BLOOD(Performed 03/29/2020) * LDH BLOOD(Performed 03/29/2020) * FERRITIN(Performed 03/29/2020) * ERYTHROCYTE SEDIMENTATION RATE(Performed 03/29/2020) * D-DIMER(Performed 03/29/2020) * COMPREHENSIVE METABOLIC PANEL(Performed 03/29/2020) * CBC W AUTO DIFFERENTIAL(Performed 03/29/2020) * C-REACTIVE PROTEIN(Performed 03/29/2020) * RBC MORPHOLOGY(Performed 03/27/2020) * PHOSPHORUS BLOOD(Performed 03/27/2020) * MAGNESIUM BLOOD(Performed 03/27/2020) * LDH BLOOD(Performed 03/27/2020) * FERRITIN(Performed 03/27/2020) * ERYTHROCYTE SEDIMENTATION RATE(Performed 03/27/2020) * D-DIMER(Performed 03/27/2020) * COMPREHENSIVE METABOLIC PANEL(Performed 03/27/2020) * CBC W AUTO DIFFERENTIAL(Performed 03/27/2020) * C-REACTIVE PROTEIN(Performed 03/27/2020) * CULTURE BLOOD(Performed 03/24/2020) * CULTURE BLOOD(Performed 03/24/2020) * RBC MORPHOLOGY(Performed 03/24/2020) * PHOSPHORUS BLOOD(Performed 03/24/2020) * MAGNESIUM BLOOD(Performed 03/24/2020) * LDH BLOOD(Performed 03/24/2020) * FERRITIN(Performed 03/24/2020) * ERYTHROCYTE SEDIMENTATION RATE(Performed 03/24/2020) * D-DIMER(Performed 03/24/2020) * COMPREHENSIVE METABOLIC PANEL(Performed 03/24/2020) * CBC W AUTO DIFFERENTIAL(Performed 03/24/2020) * C-REACTIVE PROTEIN(Performed 03/24/2020) * IGG BLOOD(Performed 03/22/2020) * RBC MORPHOLOGY(Performed 03/22/2020) * C-REACTIVE PROTEIN(Performed 03/22/2020) * LDH BLOOD(Performed 03/22/2020) * FERRITIN(Performed 03/22/2020) * ERYTHROCYTE SEDIMENTATION RATE(Performed 03/22/2020) * D-DIMER(Performed 03/22/2020) * PHOSPHORUS BLOOD(Performed 03/22/2020) * MAGNESIUM BLOOD(Performed 03/22/2020) * COMPREHENSIVE METABOLIC PANEL(Performed 03/22/2020) * CBC W AUTO DIFFERENTIAL(Performed 03/22/2020) * CULTURE BLOOD(Performed 03/21/2020) * RBC MORPHOLOGY(Performed 03/21/2020) * B-TYPE NATRIURETIC PEPTIDE(Performed 03/21/2020) * C-REACTIVE PROTEIN(Performed 03/21/2020) * PHOSPHORUS BLOOD(Performed 03/21/2020) * MAGNESIUM BLOOD(Performed 03/21/2020) * COMPREHENSIVE METABOLIC PANEL(Performed 03/21/2020) * CBC W AUTO DIFFERENTIAL(Performed 03/21/2020) * CULTURE BLOOD(Performed 03/21/2020) * XR CHEST 1VW PORTABLE(Performed 03/20/2020) Performed for Pneumonia due to COVID-19 virus * RBC MORPHOLOGY(Performed 03/20/2020) * C-REACTIVE PROTEIN(Performed 03/20/2020) * LDH BLOOD(Performed 03/20/2020) * FERRITIN(Performed 03/20/2020) * ERYTHROCYTE SEDIMENTATION RATE(Performed 03/20/2020) * D-DIMER(Performed 03/20/2020) * PHOSPHORUS BLOOD(Performed 03/20/2020) * MAGNESIUM BLOOD(Performed 03/20/2020) * COMPREHENSIVE METABOLIC PANEL(Performed 03/20/2020) * CBC W AUTO DIFFERENTIAL(Performed 03/20/2020) * DIFFERENTIAL MANUAL(Performed 03/18/2020) * C-REACTIVE PROTEIN(Performed 03/18/2020) * PHOSPHORUS BLOOD(Performed 03/18/2020) * MAGNESIUM BLOOD(Performed 03/18/2020) * COMPREHENSIVE METABOLIC PANEL(Performed 03/18/2020) * CBC W AUTO DIFFERENTIAL(Performed 03/18/2020) * RBC MORPHOLOGY(Performed 03/18/2020) * C-REACTIVE PROTEIN(Performed 03/18/2020) * LDH BLOOD(Performed 03/18/2020) * FERRITIN(Performed 03/18/2020) * ERYTHROCYTE SEDIMENTATION RATE(Performed 03/18/2020) * D-DIMER(Performed 03/18/2020) * PHOSPHORUS BLOOD(Performed 03/18/2020) * MAGNESIUM BLOOD(Performed 03/18/2020) * COMPREHENSIVE METABOLIC PANEL(Performed 03/18/2020) * CBC W AUTO DIFFERENTIAL(Performed 03/18/2020) * C-REACTIVE PROTEIN(Performed 03/16/2020) * PHOSPHORUS BLOOD(Performed 03/16/2020) * MAGNESIUM BLOOD(Performed 03/16/2020) * COMPREHENSIVE METABOLIC PANEL(Performed 03/16/2020) * CBC W AUTO DIFFERENTIAL(Performed 03/16/2020) * C-REACTIVE PROTEIN(Performed 03/16/2020) * LDH BLOOD(Performed 03/16/2020) * FERRITIN(Performed 03/16/2020) * ERYTHROCYTE SEDIMENTATION RATE(Performed 03/16/2020) * D-DIMER(Performed 03/16/2020) * PHOSPHORUS BLOOD(Performed 03/16/2020) * MAGNESIUM BLOOD(Performed 03/16/2020) * COMPREHENSIVE METABOLIC PANEL(Performed 03/16/2020) * CBC W AUTO DIFFERENTIAL(Performed 03/16/2020) * C-REACTIVE PROTEIN(Performed 03/15/2020) * PHOSPHORUS BLOOD(Performed 03/15/2020) * MAGNESIUM BLOOD(Performed 03/15/2020) * COMPREHENSIVE METABOLIC PANEL(Performed 03/15/2020) * CBC W AUTO DIFFERENTIAL(Performed 03/15/2020) * C-REACTIVE PROTEIN(Performed 03/14/2020) * DIFFERENTIAL MANUAL(Performed 03/14/2020) * LDH BLOOD(Performed 03/14/2020) * FERRITIN(Performed 03/14/2020) * ERYTHROCYTE SEDIMENTATION RATE(Performed 03/14/2020) * D-DIMER(Performed 03/14/2020) * PHOSPHORUS BLOOD(Performed 03/14/2020) * MAGNESIUM BLOOD(Performed 03/14/2020) * COMPREHENSIVE METABOLIC PANEL(Performed 03/14/2020) * CBC W AUTO DIFFERENTIAL(Performed 03/14/2020) * IGG BLOOD(Performed 03/13/2020) * C-REACTIVE PROTEIN(Performed 03/13/2020) * PHOSPHORUS BLOOD(Performed 03/13/2020) * MAGNESIUM BLOOD(Performed 03/13/2020) * COMPREHENSIVE METABOLIC PANEL(Performed 03/13/2020) * CBC W AUTO DIFFERENTIAL(Performed 03/13/2020) * C-REACTIVE PROTEIN(Performed 03/12/2020) * DIFFERENTIAL MANUAL(Performed 03/12/2020) * LDH BLOOD(Performed 03/12/2020) * FERRITIN(Performed 03/12/2020) * ERYTHROCYTE SEDIMENTATION RATE(Performed 03/12/2020) * D-DIMER(Performed 03/12/2020) * PHOSPHORUS BLOOD(Performed 03/12/2020) * MAGNESIUM BLOOD(Performed 03/12/2020) * COMPREHENSIVE METABOLIC PANEL(Performed 03/12/2020) * CBC W AUTO DIFFERENTIAL(Performed 03/12/2020) * DIFFERENTIAL MANUAL(Performed 03/11/2020) * PHOSPHORUS BLOOD(Performed 03/11/2020) * MAGNESIUM BLOOD(Performed 03/11/2020) * COMPREHENSIVE METABOLIC PANEL(Performed 03/11/2020) * CBC W AUTO DIFFERENTIAL(Performed 03/11/2020) * TRANSFUSE [facility] COVID-19 PLASMA UNIT(Performed 03/10/2020) * BLOOD TYPE ABO+ RH PANEL(Performed 03/10/2020) * PREPARE [facility] COVID-19 PLASMA UNIT(Performed 03/10/2020) * XR CHEST 1VW PORTABLE(Performed 03/10/2020) Performed for Fever in other diseases * LDH BLOOD(Performed 03/10/2020) * FERRITIN(Performed 03/10/2020) * ERYTHROCYTE SEDIMENTATION RATE(Performed 03/10/2020) * D-DIMER(Performed 03/10/2020) * C-REACTIVE PROTEIN(Performed 03/10/2020) * PHOSPHORUS BLOOD(Performed 03/10/2020) * MAGNESIUM BLOOD(Performed 03/10/2020) * COMPREHENSIVE METABOLIC PANEL(Performed 03/10/2020) * CBC W AUTO DIFFERENTIAL(Performed 03/10/2020) * CULTURE BLOOD(Performed 03/09/2020) * CULTURE BLOOD(Performed 03/09/2020) * MAGNESIUM BLOOD(Performed 03/09/2020) * COMPREHENSIVE METABOLIC PANEL(Performed 03/09/2020) * MAGNESIUM BLOOD(Performed 03/09/2020) * PHOSPHORUS BLOOD(Performed 03/09/2020) * CBC W AUTO DIFFERENTIAL(Performed 03/09/2020) * CULTURE URINE(Performed 03/08/2020) * MAGNESIUM BLOOD(Performed 03/08/2020) * BASIC METABOLIC PANEL (CALCIUM TOTAL)(Performed 03/08/2020) * URINALYSIS REFLEX TO MICROSCOPIC NO CULTURE(Performed 03/08/2020) * CULTURE BLOOD(Performed 03/08/2020) * CULTURE BLOOD(Performed 03/08/2020) * VANCOMYCIN LEVEL TROUGH(Performed 03/08/2020) * ERYTHROCYTE SEDIMENTATION RATE(Performed 03/08/2020) * C-REACTIVE PROTEIN(Performed 03/08/2020) * D-DIMER(Performed 03/08/2020) * LDH BLOOD(Performed 03/08/2020) * FERRITIN(Performed 03/08/2020) * PHOSPHORUS BLOOD(Performed 03/08/2020) * MAGNESIUM BLOOD(Performed 03/08/2020) * COMPREHENSIVE METABOLIC PANEL(Performed 03/08/2020) * CBC W AUTO DIFFERENTIAL(Performed 03/08/2020) * SARS-COV-2 (COVID-19) IN HOUSE(Performed 03/07/2020) * XR ABDOMEN KUB PORTABLE(Performed 03/07/2020) Performed for Encounter for orogastric (OG) tube placement * PHOSPHORUS BLOOD(Performed 03/07/2020) * MAGNESIUM BLOOD(Performed 03/07/2020) * COMPREHENSIVE METABOLIC PANEL(Performed 03/07/2020) * CBC W AUTO DIFFERENTIAL(Performed 03/07/2020) * XR ABDOMEN KUB(Performed 03/06/2020) Performed for Fever, unspecified fever cause * BLOOD GASES ARTERIAL(Performed 03/06/2020) * PTT SLH(Performed 03/06/2020) * PT-INR SLH(Performed 03/06/2020) * MAGNESIUM BLOOD(Performed 03/06/2020) * PHOSPHORUS BLOOD(Performed 03/06/2020) * COMPREHENSIVE METABOLIC PANEL(Performed 03/06/2020) * CBC W AUTO DIFFERENTIAL(Performed 03/06/2020) * BLOOD GASES ARTERIAL(Performed 03/06/2020) * XR CHEST 1VW PORTABLE(Performed 03/06/2020) Performed for Abnormal CXR * PATHOLOGY TISSUE(Performed 03/06/2020) Performed for Abnormal CXR * CYTOLOGY NON-DIRECTOR MEDICAL SCIENCE PANEL (STL)(Performed 03/06/2020) Performed for Fever, unspecified fever cause * FLOW CYTOMETRY BODY FLUID(Performed 03/06/2020) Performed for Fever, unspecified fever cause * DIFFERENTIAL MANUAL FLUID(Performed 03/06/2020) Performed for Fever, unspecified fever cause * CELL COUNT W DIFFERENTIAL FLUID(Performed 03/06/2020) Performed for Fever, unspecified fever cause * LAB MISC TEST(Performed 03/06/2020) * CULTURE FUNGUS OTHER+FUNGUS SMEAR(Performed 03/06/2020) Performed for Fever, unspecified fever cause * HHV-6 QUANTITATIVE PCR(Performed 03/06/2020) Performed for Fever, unspecified fever cause * ADENOVIRUS PCR QUANTITATIVE (VIRACOR)(Performed 03/06/2020) Performed for Fever, unspecified fever cause * CYTOMEGALOVIRUS DNA RT-PCR QUANT(Performed 03/06/2020) Performed for Fever, unspecified fever cause * FUNGAL PLUS PCR PROFILE II(Performed 03/06/2020) Performed for Fever, unspecified fever cause * ASPERGILLUS GALACTOMANNAN BAL/BLOOD(Performed 03/06/2020) Performed for Fever, unspecified fever cause * RESPIRATORY PATHOGEN PANEL BY PCR(Performed 03/06/2020) Performed for Fever, unspecified fever cause * CULTURE BRONCHOALVEOLAR LAVAGE QNT+GRAM STAIN(Performed 03/06/2020) Performed for Fever, unspecified fever cause * CULTURE AFB+SMEAR(Performed 03/06/2020) Performed for Fever, unspecified fever cause * SARS-COV-2 (COVID-19) IN HOUSE(Performed 03/06/2020) * CULTURE BRONCHIAL BRUSHINGS QUANT(Performed 03/06/2020) Performed for Diffuse large B-cell lymphoma, unspecified body region (HCC) * ENDOTRACHEAL TUBE NOTE(Performed 03/06/2020) * NE DX BRONCHOSCOPE/LAVAGE(Performed 03/06/2020) Performed for Abnormal CXR * BRONCHOSCOPY(Performed 03/06/2020) * PHOSPHORUS BLOOD(Performed 03/05/2020) * MAGNESIUM BLOOD(Performed 03/05/2020) * COMPREHENSIVE METABOLIC PANEL(Performed 03/05/2020) * CBC W AUTO DIFFERENTIAL(Performed 03/05/2020) * VANCOMYCIN LEVEL TROUGH(Performed 03/05/2020) * XR CHEST 1VW PORTABLE(Performed 03/05/2020) Performed for Fever, unspecified, Status post autologous bone marrow transplant (HCC) * PHOSPHORUS BLOOD(Performed 03/04/2020) * MAGNESIUM BLOOD(Performed 03/04/2020) * COMPREHENSIVE METABOLIC PANEL(Performed 03/04/2020) * CBC W AUTO DIFFERENTIAL(Performed 03/04/2020) * SARS-COV-2 (COVID-19) IN HOUSE(Performed 03/04/2020) * LACTIC ACID BLOOD(Performed 03/04/2020) * PHOSPHORUS BLOOD(Performed 03/03/2020) * MAGNESIUM BLOOD(Performed 03/03/2020) * COMPREHENSIVE METABOLIC PANEL(Performed 03/03/2020) * CBC W AUTO DIFFERENTIAL(Performed 03/03/2020) * CULTURE BLOOD(Performed 03/03/2020) * LEGIONELLA ANTIGEN URINE(Performed 03/03/2020) * B-TYPE NATRIURETIC PEPTIDE(Performed 03/03/2020) * VANCOMYCIN LEVEL TROUGH(Performed 03/03/2020) * CULTURE BLOOD(Performed 03/03/2020) * ECHO LIMITED OR FOLLOWUP(Performed 03/03/2020) Performed for Fever in other diseases * VAS BILATERAL VENOUS DUPLEX UE(Performed 03/03/2020) Performed for Fever in other diseases * VAS BILATERAL VENOUS DUPLEX LE(Performed 03/03/2020) Performed for Fever in other diseases * CHROMOSOME ANALYSIS BONE MARROW PANEL(Performed 03/03/2020) Performed for Diffuse large B-cell lymphoma, unspecified body region (HCC) * FISH LYMPHOMA (AGGRESSIVE) PANEL(Performed 03/03/2020) Performed for Diffuse large B-cell lymphoma, unspecified body region (HCC) * FLOW CYTOMETRY BONE MARROW(Performed 03/03/2020) Performed for Diffuse large B-cell lymphoma, unspecified body region (HCC) * BONE MARROW BIOPSY (STL)(Performed 03/03/2020) Performed for Diffuse large B-cell lymphoma, unspecified body region (HCC) * FIBRINOGEN ACTIVITY(Performed 03/03/2020) * ERYTHROCYTE SEDIMENTATION RATE(Performed 03/03/2020) * C-REACTIVE PROTEIN(Performed 03/03/2020) * LDH BLOOD(Performed 03/03/2020) * SARS-COV-2 (COVID-19) ANTIBODY IGG(Performed 03/03/2020) * D-DIMER(Performed 03/03/2020) * TROPONIN I(Performed 03/03/2020) * FERRITIN(Performed 03/03/2020) * VANCOMYCIN LEVEL TROUGH(Performed 03/03/2020) * PHOSPHORUS BLOOD(Performed 03/03/2020) * MAGNESIUM BLOOD(Performed 03/03/2020) * COMPREHENSIVE METABOLIC PANEL(Performed 03/03/2020) * CBC W AUTO DIFFERENTIAL(Performed 03/03/2020) * PNEUMOCYSTIS JIROVECI QUANT PCR(Performed 03/03/2020) * [id number] FUNGITELL BAL/BLOOD(Performed 03/03/2020) * CT CHEST W CONTRAST(Performed 03/02/2020) Performed for Diffuse large B-cell lymphoma, unspecified body region (HCC), Fever in other diseases * CULTURE BLOOD(Performed 03/02/2020) * CULTURE BLOOD(Performed 03/02/2020) * PHOSPHORUS BLOOD(Performed 03/01/2020) * MAGNESIUM BLOOD(Performed 03/01/2020) * COMPREHENSIVE METABOLIC PANEL(Performed 03/01/2020) * CBC W AUTO DIFFERENTIAL(Performed 03/01/2020) * FLOW CYTOMETRY BODY FLUID(Performed 03/01/2020) Performed for Fever, unspecified fever cause, Diffuse large B-cell lymphoma, unspecified body region (HCC) * HERPES SIMPLEX 1+2 PCR CSF(Performed 03/01/2020) * CRYPTOCOCCUS ANTIGEN CSF(Performed 03/01/2020) * PROTEIN CSF(Performed 03/01/2020) * GLUCOSE CSF(Performed 03/01/2020) * FL LUMBAR PUNCTURE(Performed 03/01/2020) Performed for Diffuse large B-cell lymphoma, unspecified body region (HCC), Headache around the eyes, Fever in other diseases * DIFFERENTIAL MANUAL FLUID(Performed 03/01/2020) * OLIGOCLONAL BANDS CSF+BLOOD PANEL(Performed 03/01/2020) * CELL COUNT W DIFFERENTIAL CSF(Performed 03/01/2020) * PHOSPHORUS BLOOD(Performed 02/29/2020) * MAGNESIUM BLOOD(Performed 02/29/2020) * COMPREHENSIVE METABOLIC PANEL(Performed 02/29/2020) * CBC W AUTO DIFFERENTIAL(Performed 02/29/2020) * VANCOMYCIN LEVEL TROUGH(Performed 02/29/2020) * PHOSPHORUS BLOOD(Performed 02/29/2020) * MAGNESIUM BLOOD(Performed 02/29/2020) * COMPREHENSIVE METABOLIC PANEL(Performed 02/29/2020) * CBC W AUTO DIFFERENTIAL(Performed 02/29/2020) * VANCOMYCIN LEVEL TROUGH(Performed 02/28/2020) * ASPERGILLUS GALACTOMANNAN AG BAL/BLOOD(Performed 02/28/2020) Performed for Fever, unspecified fever cause * PT-INR SLH(Performed 02/27/2020) Performed for Diffuse large B-cell lymphoma, unspecified body region (HCC) * PHOSPHORUS BLOOD(Performed 02/27/2020) * MAGNESIUM BLOOD(Performed 02/27/2020) * COMPREHENSIVE METABOLIC PANEL(Performed 02/27/2020) * CBC W AUTO DIFFERENTIAL(Performed 02/27/2020) * HISTOPLASMA GALACTOMANNAN AG URINE(Performed 02/27/2020) Performed for Fever, unspecified fever cause * SARS-COV-2 (COVID-19) IN HOUSE(Performed 02/27/2020) * FLOW CYTOMETRY T-HELPER CELLS (CD4) COUNT(Performed 02/27/2020) Performed for Diffuse large B-cell lymphoma, unspecified body region (HCC) * BLASTOMYCES ANTIBODY BY ID(Performed 02/27/2020) Performed for Fever, unspecified fever cause * HISTOPLASMA ANTIGEN BLOOD(Performed 02/27/2020) Performed for Fever, unspecified fever cause * PTT SLH(Performed 02/27/2020) Performed for Fever, unspecified fever cause * DIFFERENTIAL MANUAL(Performed 02/27/2020) * PT-INR SLH(Performed 02/27/2020) * BARTONELLA HENSELAE ANTIBODY IGM(Performed 02/27/2020) Performed for Fever, unspecified fever cause, Diffuse large B-cell lymphoma, unspecified body region (HCC), Headache around the eyes * BARTONELLA HENSELAE ANTIBODY IGG(Performed 02/27/2020) Performed for Fever, unspecified fever cause, Diffuse large B-cell lymphoma, unspecified body region (HCC), Headache around the eyes * TOXOPLASMA GONDII ANTIBODY IGM(Performed 02/27/2020) Performed for Fever, unspecified fever cause, Diffuse large B-cell lymphoma, unspecified body region (HCC), Headache around the eyes * TOXOPLASMA GONDII ANTIBODY IGG(Performed 02/27/2020) Performed for Fever, unspecified fever cause, Diffuse large B-cell lymphoma, unspecified body region (HCC), Headache around the eyes * CRYPTOCOCCUS ANTIGEN BLOOD(Performed 02/27/2020) Performed for Fever, unspecified fever cause, Diffuse large B-cell lymphoma, unspecified body region (HCC), Headache around the eyes * PHOSPHORUS BLOOD(Performed 02/27/2020) * MAGNESIUM BLOOD(Performed 02/27/2020) * COMPREHENSIVE METABOLIC PANEL(Performed 02/27/2020) * CBC W AUTO DIFFERENTIAL(Performed 02/27/2020) * TOXOPLASMA GONDII PCR(Performed 02/27/2020) Performed for Fever, unspecified fever cause, Diffuse large B-cell lymphoma, unspecified body region (HCC), Headache around the eyes * MRI BRAIN WWO CONTRAST(Performed 02/26/2020) Performed for Fever, unspecified fever cause, Diffuse large B-cell lymphoma, unspecified body region (HCC), Headache around the eyes * CULTURE BLOOD(Performed 02/26/2020) * CULTURE BLOOD(Performed 02/26/2020) * CULTURE BLOOD AFB(Performed 02/26/2020) Performed for Fever, unspecified fever cause, Diffuse large B-cell lymphoma, unspecified body region (HCC), Headache around the eyes * CULTURE BLOOD FUNGUS(Performed 02/26/2020) Performed for Fever, unspecified fever cause, Diffuse large B-cell lymphoma, unspecified body region (HCC), Headache around the eyes * CT CHEST ABDOMEN PELVIS W CONT(Performed 02/26/2020) Performed for Fever, unspecified fever cause, Diffuse large B-cell lymphoma, unspecified body region (HCC) * ADENOVIRUS PCR QUANTITATIVE(Performed 02/26/2020) * IGG BLOOD(Performed 02/26/2020) * ISA-JUAN VIRUS QUANT BLOOD STL(Performed 02/26/2020) * CYTOMEGALOVIRUS (CMV) QUANTITATIVE PLASMA(Performed 02/26/2020) * LDH BLOOD(Performed 02/26/2020) * MAGNESIUM BLOOD(Performed 02/26/2020) * COMPREHENSIVE METABOLIC PANEL(Performed 02/26/2020) * URINALYSIS REFLEX TO MICROSCOPIC NO CULTURE(Performed 02/26/2020) * CULTURE URINE(Performed 02/26/2020) * CULTURE BLOOD(Performed 02/25/2020) * SARS-COV-2 (COVID-19) ANTIBODY IGG(Performed 02/25/2020) * PHOSPHORUS BLOOD(Performed 02/25/2020) * CBC W AUTO DIFFERENTIAL(Performed 02/25/2020) * CULTURE BLOOD(Performed 02/25/2020) * SARS-COV-2 (COVID-19) IN HOUSE(Performed 02/25/2020) * RESPIRATORY PATHOGEN PANEL BY PCR(Performed 02/25/2020) * XR CHEST 1VW PORTABLE(Performed 02/25/2020) Performed for Fever, unspecified fever cause * PHOSPHORUS BLOOD(Performed 11/15/2019) Performed for Diffuse large B-cell lymphoma, unspecified body region (HCC) * MAGNESIUM BLOOD(Performed 11/15/2019) Performed for Diffuse large B-cell lymphoma, unspecified body region (HCC) * CBC W AUTO DIFFERENTIAL(Performed 11/15/2019) Performed for Diffuse large B-cell lymphoma, unspecified body region (HCC) * COMPREHENSIVE METABOLIC PANEL(Performed 11/15/2019) Performed for Diffuse large B-cell lymphoma, unspecified body region (HCC) * CYTOMEGALOVIRUS (CMV) QUANTITATIVE PLASMA(Performed 11/15/2019) Performed for Diffuse large B-cell lymphoma, unspecified body region (HCC) * PHOSPHORUS BLOOD(Performed 11/11/2019) Performed for Diffuse large B-cell lymphoma, unspecified body region (HCC) * MAGNESIUM BLOOD(Performed 11/11/2019) Performed for Diffuse large B-cell lymphoma, unspecified body region (HCC) * CBC W AUTO DIFFERENTIAL(Performed 11/11/2019) Performed for Diffuse large B-cell lymphoma, unspecified body region (HCC) * COMPREHENSIVE METABOLIC PANEL(Performed 11/11/2019) Performed for Diffuse large B-cell lymphoma, unspecified body region (HCC) * CYTOMEGALOVIRUS (CMV) QUANTITATIVE PLASMA(Performed 11/11/2019) Performed for Diffuse large B-cell lymphoma, unspecified body region (HCC) * DIFFERENTIAL MANUAL(Performed 11/04/2019) Performed for Diffuse large B-cell lymphoma, unspecified body region (HCC) * PHOSPHORUS BLOOD(Performed 11/04/2019) Performed for Diffuse large B-cell lymphoma, unspecified body region (HCC) * MAGNESIUM BLOOD(Performed 11/04/2019) Performed for Diffuse large B-cell lymphoma, unspecified body region (HCC) * CBC W AUTO DIFFERENTIAL(Performed 11/04/2019) Performed for Diffuse large B-cell lymphoma, unspecified body region (HCC) * COMPREHENSIVE METABOLIC PANEL(Performed 11/04/2019) Performed for Diffuse large B-cell lymphoma, unspecified body region (HCC) * DIFFERENTIAL MANUAL(Performed 11/01/2019) Performed for Diffuse large B-cell lymphoma, unspecified body region (HCC) * PHOSPHORUS BLOOD(Performed 11/01/2019) Performed for Diffuse large B-cell lymphoma, unspecified body region (HCC) * MAGNESIUM BLOOD(Performed 11/01/2019) Performed for Diffuse large B-cell lymphoma, unspecified body region (HCC) * CBC W AUTO DIFFERENTIAL(Performed 11/01/2019) Performed for Diffuse large B-cell lymphoma, unspecified body region (HCC) * COMPREHENSIVE METABOLIC PANEL(Performed 11/01/2019) Performed for Diffuse large B-cell lymphoma, unspecified body region (HCC) * CYTOMEGALOVIRUS (CMV) QUANTITATIVE PLASMA(Performed 11/01/2019) Performed for Diffuse large B-cell lymphoma, unspecified body region (HCC) * DIFFERENTIAL MANUAL(Performed 10/30/2019) Performed for Diffuse large B-cell lymphoma, unspecified body region (HCC) * PHOSPHORUS BLOOD(Performed 10/30/2019) Performed for Diffuse large B-cell lymphoma, unspecified body region (HCC) * MAGNESIUM BLOOD(Performed 10/30/2019) Performed for Diffuse large B-cell lymphoma, unspecified body region (HCC) * CBC W AUTO DIFFERENTIAL(Performed 10/30/2019) Performed for Diffuse large B-cell lymphoma, unspecified body region (HCC) * COMPREHENSIVE METABOLIC PANEL(Performed 10/30/2019) Performed for Diffuse large B-cell lymphoma, unspecified body region (HCC) * DIFFERENTIAL MANUAL(Performed 10/29/2019) * PHOSPHORUS BLOOD(Performed 10/29/2019) * MAGNESIUM BLOOD(Performed 10/29/2019) * COMPREHENSIVE METABOLIC PANEL(Performed 10/29/2019) * CBC W AUTO DIFFERENTIAL(Performed 10/29/2019) * DIFFERENTIAL MANUAL(Performed 10/28/2019) * PHOSPHORUS BLOOD(Performed 10/28/2019) * MAGNESIUM BLOOD(Performed 10/28/2019) * COMPREHENSIVE METABOLIC PANEL(Performed 10/28/2019) * CBC W AUTO DIFFERENTIAL(Performed 10/28/2019) * CARDIAC EKG ORDER(Performed 10/27/2019) * PLATELET COUNT AUTO(Performed 10/27/2019) * TRANSFUSE PLATELET PHERESIS UNIT(S)(Performed 10/27/2019) * TYPE + SCREEN PANEL(Performed 10/27/2019) * PREPARE PLATELET PHERESIS UNIT(S)(Performed 10/27/2019) * DIFFERENTIAL MANUAL(Performed 10/27/2019) * PHOSPHORUS BLOOD(Performed 10/27/2019) * MAGNESIUM BLOOD(Performed 10/27/2019) * COMPREHENSIVE METABOLIC PANEL(Performed 10/27/2019) * CBC W AUTO DIFFERENTIAL(Performed 10/27/2019) * DIFFERENTIAL MANUAL(Performed 10/26/2019) * PHOSPHORUS BLOOD(Performed 10/26/2019) * MAGNESIUM BLOOD(Performed 10/26/2019) * COMPREHENSIVE METABOLIC PANEL(Performed 10/26/2019) * CBC W AUTO DIFFERENTIAL(Performed 10/26/2019) * URINALYSIS REFLEX TO MICROSCOPIC NO CULTURE(Performed 10/25/2019) * CULTURE URINE(Performed 10/25/2019) * CULTURE BLOOD(Performed 10/25/2019) * CULTURE BLOOD(Performed 10/25/2019) * XR CHEST 1VW PORTABLE(Performed 10/25/2019) Performed for Diffuse large B-cell lymphoma, unspecified body region (HCC) * DIFFERENTIAL MANUAL(Performed 10/25/2019) * PHOSPHORUS BLOOD(Performed 10/25/2019) * MAGNESIUM BLOOD(Performed 10/25/2019) * COMPREHENSIVE METABOLIC PANEL(Performed 10/25/2019) * CBC W AUTO DIFFERENTIAL(Performed 10/25/2019) * CYTOMEGALOVIRUS (CMV) QUANTITATIVE PLASMA(Performed 10/25/2019) * DIFFERENTIAL MANUAL(Performed 10/24/2019) * PHOSPHORUS BLOOD(Performed 10/24/2019) * MAGNESIUM BLOOD(Performed 10/24/2019) * COMPREHENSIVE METABOLIC PANEL(Performed 10/24/2019) * CBC W AUTO DIFFERENTIAL(Performed 10/24/2019) * XR CHEST 1VW PORTABLE(Performed 10/23/2019) Performed for Diffuse large B-cell lymphoma, unspecified body region (HCC), Expiratory wheezing on right side of chest * C DIFFICILE GDH AG + TOXIN A+B(Performed 10/23/2019) * PHOSPHORUS BLOOD(Performed 10/23/2019) * MAGNESIUM BLOOD(Performed 10/23/2019) * COMPREHENSIVE METABOLIC PANEL(Performed 10/23/2019) * DIFFERENTIAL MANUAL(Performed 10/23/2019) * CBC W AUTO DIFFERENTIAL(Performed 10/23/2019) * DIFFERENTIAL MANUAL(Performed 10/22/2019) * PHOSPHORUS BLOOD(Performed 10/22/2019) * MAGNESIUM BLOOD(Performed 10/22/2019) * COMPREHENSIVE METABOLIC PANEL(Performed 10/22/2019) * CBC W AUTO DIFFERENTIAL(Performed 10/22/2019) * PT EVAL AND TREAT(Performed 10/21/2019) * DIFFERENTIAL MANUAL(Performed 10/20/2019) * PHOSPHORUS BLOOD(Performed 10/20/2019) * MAGNESIUM BLOOD(Performed 10/20/2019) * COMPREHENSIVE METABOLIC PANEL(Performed 10/20/2019) * CBC W AUTO DIFFERENTIAL(Performed 10/20/2019) * DIFFERENTIAL MANUAL(Performed 10/20/2019) * PHOSPHORUS BLOOD(Performed 10/20/2019) * MAGNESIUM BLOOD(Performed 10/20/2019) * COMPREHENSIVE METABOLIC PANEL(Performed 10/20/2019) * CBC W AUTO DIFFERENTIAL(Performed 10/20/2019) * CYTOMEGALOVIRUS (CMV) QUANTITATIVE PLASMA(Performed 10/20/2019) * PHOSPHORUS BLOOD(Performed 10/19/2019) * MAGNESIUM BLOOD(Performed 10/19/2019) * COMPREHENSIVE METABOLIC PANEL(Performed 10/19/2019) * CBC W AUTO DIFFERENTIAL(Performed 10/19/2019) * PHOSPHORUS BLOOD(Performed 10/17/2019) * MAGNESIUM BLOOD(Performed 10/17/2019) * COMPREHENSIVE METABOLIC PANEL(Performed 10/17/2019) * CBC W AUTO DIFFERENTIAL(Performed 10/17/2019) * PHOSPHORUS BLOOD(Performed 10/17/2019) * MAGNESIUM BLOOD(Performed 10/17/2019) * COMPREHENSIVE METABOLIC PANEL(Performed 10/17/2019) * CBC W AUTO DIFFERENTIAL(Performed 10/17/2019) * PHOSPHORUS BLOOD(Performed 10/16/2019) * MAGNESIUM BLOOD(Performed 10/16/2019) * COMPREHENSIVE METABOLIC PANEL(Performed 10/16/2019) * CBC W AUTO DIFFERENTIAL(Performed 10/16/2019) * PHOSPHORUS BLOOD(Performed 10/15/2019) * MAGNESIUM BLOOD(Performed 10/15/2019) * COMPREHENSIVE METABOLIC PANEL(Performed 10/15/2019) * CBC W AUTO DIFFERENTIAL(Performed 10/15/2019) * PHOSPHORUS BLOOD(Performed 10/13/2019) * MAGNESIUM BLOOD(Performed 10/13/2019) * COMPREHENSIVE METABOLIC PANEL(Performed 10/13/2019) * CBC W AUTO DIFFERENTIAL(Performed 10/13/2019) * PHOSPHORUS BLOOD(Performed 10/13/2019) Performed for Diffuse large B-cell lymphoma, unspecified body region (HCC) * MAGNESIUM BLOOD(Performed 10/13/2019) Performed for Diffuse large B-cell lymphoma, unspecified body region (HCC) * CBC W AUTO DIFFERENTIAL(Performed 10/13/2019) Performed for Diffuse large B-cell lymphoma, unspecified body region (HCC) * COMPREHENSIVE METABOLIC PANEL(Performed 10/13/2019) Performed for Diffuse large B-cell lymphoma, unspecified body region (HCC) * CARDIAC EKG ORDER(Performed 10/04/2019) * PHOSPHORUS BLOOD(Performed 09/30/2019) Performed for Diffuse large B-cell lymphoma, unspecified body region (HCC) * MAGNESIUM BLOOD(Performed 09/30/2019) Performed for Diffuse large B-cell lymphoma, unspecified body region (HCC) * CBC W AUTO DIFFERENTIAL(Performed 09/30/2019) Performed for Diffuse large B-cell lymphoma, unspecified body region (HCC) * COMPREHENSIVE METABOLIC PANEL(Performed 09/30/2019) Performed for Diffuse large B-cell lymphoma, unspecified body region (HCC) * VASCULAR LAB ORDER(Performed 09/28/2019) * VAS RIGHT VENOUS DUPLEX UE(Performed 09/27/2019) Performed for Neck pain on right side * DIFFERENTIAL MANUAL(Performed 09/21/2019) Performed for B-cell lymphoma, unspecified B-cell lymphoma type, unspecified body region (HCC) * CBC W AUTO DIFFERENTIAL(Performed 09/21/2019) Performed for B-cell lymphoma, unspecified B-cell lymphoma type, unspecified body region (HCC) * FLOW CYTOMETRY CD34 COUNT BLOOD(Performed 09/21/2019) Performed for B-cell lymphoma, unspecified B-cell lymphoma type, unspecified body region (HCC) * DIFFERENTIAL MANUAL(Performed 09/21/2019) Performed for B-cell lymphoma, unspecified B-cell lymphoma type, unspecified body region (HCC) * CALCIUM IONIZED WHOLE BLOOD(Performed 09/21/2019) Performed for B-cell lymphoma, unspecified B-cell lymphoma type, unspecified body region (HCC) * CBC W AUTO DIFFERENTIAL(Performed 09/21/2019) Performed for B-cell lymphoma, unspecified B-cell lymphoma type, unspecified body region (HCC) * POTASSIUM BLOOD(Performed 09/21/2019) Performed for B-cell lymphoma, unspecified B-cell lymphoma type, unspecified body region (HCC) * MAGNESIUM BLOOD(Performed 09/21/2019) Performed for B-cell lymphoma, unspecified B-cell lymphoma type, unspecified body region (HCC) * TYPE + SCREEN PANEL(Performed 09/21/2019) Performed for B-cell lymphoma, unspecified B-cell lymphoma type, unspecified body region (HCC) * COLLECT/PROCESS: AUTO-HPC APHERESIS(Performed 09/21/2019) Performed for B-cell lymphoma, unspecified B-cell lymphoma type, unspecified body region (HCC) * SPECIAL DIET INSTRUCTIONS TO INCLUDE...(Performed 09/21/2019) * SPECIAL DIET INSTRUCTIONS TO INCLUDE...(Performed 09/21/2019) * AMBULATE / UP AD JAKE(Performed 09/21/2019) Performed for B-cell lymphoma, unspecified B-cell lymphoma type, unspecified body region (HCC) * DAILY WEIGHTS(Performed 09/21/2019) Performed for B-cell lymphoma, unspecified B-cell lymphoma type, unspecified body region (HCC) * DIET REGULAR(Performed 09/21/2019) Performed for B-cell lymphoma, unspecified B-cell lymphoma type, unspecified body region (HCC) * DIFFERENTIAL MANUAL(Performed 09/20/2019) Performed for B-cell lymphoma, unspecified B-cell lymphoma type, unspecified body region (HCC) * CALCIUM IONIZED WHOLE BLOOD(Performed 09/20/2019) Performed for B-cell lymphoma, unspecified B-cell lymphoma type, unspecified body region (HCC) * CBC W AUTO DIFFERENTIAL(Performed 09/20/2019) Performed for B-cell lymphoma, unspecified B-cell lymphoma type, unspecified body region (HCC) * POTASSIUM BLOOD(Performed 09/20/2019) Performed for B-cell lymphoma, unspecified B-cell lymphoma type, unspecified body region (HCC) * MAGNESIUM BLOOD(Performed 09/20/2019) Performed for B-cell lymphoma, unspecified B-cell lymphoma type, unspecified body region (HCC) * FLOW CYTOMETRY CD34 COUNT BLOOD(Performed 09/20/2019) Performed for B-cell lymphoma, unspecified B-cell lymphoma type, unspecified body region (HCC) * CBC W AUTO DIFFERENTIAL(Performed 09/17/2019) Performed for Diffuse large B-cell lymphoma, unspecified body region (HCC) * CYTOMEGALOVIRUS (CMV) QUANTITATIVE PLASMA(Performed 09/17/2019) Performed for Diffuse large B-cell lymphoma, unspecified body region (HCC) * IR CENTRAL LINE REMOVAL(Performed 09/17/2019) Performed for Diffuse large B-cell lymphoma, unspecified body region (HCC) * NICOTINE METABOLITE URINE(Performed 09/09/2019) Performed for Pre-transplant evaluation for stem cell transplant * URINALYSIS W/MICROSCOPIC NO CULTURE(Performed 09/09/2019) Performed for Pre-transplant evaluation for stem cell transplant * TYPE + SCREEN PANEL(Performed 09/09/2019) Performed for Pre-transplant evaluation for stem cell transplant * COMPREHENSIVE METABOLIC PANEL(Performed 09/09/2019) Performed for B-cell lymphoma, unspecified B-cell lymphoma type, unspecified body region (HCC) * CBC W AUTO DIFFERENTIAL(Performed 09/09/2019) Performed for B-cell lymphoma, unspecified B-cell lymphoma type, unspecified body region (HCC) * VITAMIN D 25-HYDROXY(Performed 09/09/2019) Performed for Pre-transplant evaluation for stem cell transplant * VARICELLA ZOSTER ANTIBODY IGM(Performed 09/09/2019) Performed for Pre-transplant evaluation for stem cell transplant * URIC ACID BLOOD(Performed 09/09/2019) Performed for Pre-transplant evaluation for stem cell transplant * TRIGLYCERIDES BLOOD(Performed 09/09/2019) Performed for Pre-transplant evaluation for stem cell transplant * TRANSFERRIN(Performed 09/09/2019) Performed for Pre-transplant evaluation for stem cell transplant * TOXOPLASMA GONDII ANTIBODY IGG(Performed 09/09/2019) Performed for Pre-transplant evaluation for stem cell transplant * SICKLE CELL SCREEN(Performed 09/09/2019) Performed for Pre-transplant evaluation for stem cell transplant * RETIC COUNT(Performed 09/09/2019) Performed for Pre-transplant evaluation for stem cell transplant * QUANTIFERON-TB GOLD PLUS 4-TUBE(Performed 09/09/2019) Performed for Pre-transplant evaluation for stem cell transplant * PTT SLH(Performed 09/09/2019) Performed for Pre-transplant evaluation for stem cell transplant * PT-INR [facility](Performed 09/09/2019) Performed for Pre-transplant evaluation for stem cell transplant * PROSTATE SPECIFIC ANTIGEN SCREEN(Performed 09/09/2019) Performed for Pre-transplant evaluation for stem cell transplant * PHOSPHORUS BLOOD(Performed 09/09/2019) Performed for Pre-transplant evaluation for stem cell transplant * MAGNESIUM BLOOD(Performed 09/09/2019) Performed for Pre-transplant evaluation for stem cell transplant * LDH BLOOD(Performed 09/09/2019) Performed for Pre-transplant evaluation for stem cell transplant * IRON BLOOD(Performed 09/09/2019) Performed for Pre-transplant evaluation for stem cell transplant * HERPES SIMPLEX 1+2 AB IGG SPEC RFLX HSV2(Performed 09/09/2019) Performed for Pre-transplant evaluation for stem cell transplant * HEPATITIS C ANTIBODY(Performed 09/09/2019) Performed for Pre-transplant evaluation for stem cell transplant * HEPATITIS B SURFACE ANTIBODY(Performed 09/09/2019) Performed for Pre-transplant evaluation for stem cell transplant * HEPATITIS A IGM ANTIBODY(Performed 09/09/2019) Performed for Pre-transplant evaluation for stem cell transplant * HEPATITIS A ANTIBODY(Performed 09/09/2019) Performed for Pre-transplant evaluation for stem cell transplant * FIBRINOGEN ACTIVITY(Performed 09/09/2019) Performed for Pre-transplant evaluation for stem cell transplant * FERRITIN(Performed 09/09/2019) Performed for Pre-transplant evaluation for stem cell transplant * ISA-JUAN VIRUS ANTIBODY TO VCA IGM(Performed 09/09/2019) Performed for Pre-transplant evaluation for stem cell transplant * ISA-JUAN VIRUS ANTIBODY TO VCA IGG(Performed 09/09/2019) Performed for Pre-transplant evaluation for stem cell transplant * CHOLESTEROL BLOOD(Performed 09/09/2019) Performed for Pre-transplant evaluation for stem cell transplant * DONOR PANEL [id number](Performed 09/09/2019) Performed for Pre-transplant evaluation for stem cell transplant * CYTOMEGALOVIRUS (CMV) QUANTITATIVE PLASMA(Performed 09/09/2019) Performed for Pre-transplant evaluation for stem cell transplant * HSV 2 IGG CONFIRMATION RFLXED(Performed 09/09/2019) Performed for Pre-transplant evaluation for stem cell transplant * VARICELLA ZOSTER ANTIBODY IGG(Performed 09/09/2019) Performed for Pre-transplant evaluation for stem cell transplant * IGM BLOOD(Performed 09/09/2019) Performed for Pre-transplant evaluation for stem cell transplant * IGG BLOOD(Performed 09/09/2019) Performed for Pre-transplant evaluation for stem cell transplant * IGA BLOOD(Performed 09/09/2019) Performed for Pre-transplant evaluation for stem cell transplant * HERPES SIMPLEX 1+2 ANTIBODY IGG/IGM PANEL(Performed 09/09/2019) Performed for Pre-transplant evaluation for stem cell transplant * HEPATITIS B SURFACE ANTIGEN W RFLX CONFIRMATION(Performed 09/09/2019) Performed for Pre-transplant evaluation for stem cell transplant * HEPATITIS B CORE ANTIBODY TOTAL(Performed 09/09/2019) Performed for Pre-transplant evaluation for stem cell transplant * CYTOMEGALOVIRUS ANTIBODY IGM BLOOD(Performed 09/09/2019) Performed for Pre-transplant evaluation for stem cell transplant * CYTOMEGALOVIRUS ANTIBODY IGG BLOOD(Performed 09/09/2019) Performed for Pre-transplant evaluation for stem cell transplant * FISH LYMPHOMA (AGGRESSIVE) PANEL(Performed 09/09/2019) Performed for B-cell lymphoma, unspecified B-cell lymphoma type, unspecified body region (HCC) * CHROMOSOME ANALYSIS BONE MARROW PANEL(Performed 09/09/2019) Performed for B-cell lymphoma, unspecified B-cell lymphoma type, unspecified body region (HCC) * HOLD SPECIMEN DNA TISSUE(Performed 09/09/2019) Performed for B-cell lymphoma, unspecified B-cell lymphoma type, unspecified body region (HCC) * FLOW CYTOMETRY BONE MARROW(Performed 09/09/2019) Performed for B-cell lymphoma, unspecified B-cell lymphoma type, unspecified body region (HCC) * BONE MARROW BIOPSY (STL)(Performed 09/09/2019) Performed for B-cell lymphoma, unspecified B-cell lymphoma type, unspecified body region (HCC) * XR PANOREX(Performed 09/09/2019) Performed for Pre-transplant evaluation for stem cell transplant * XR CHEST 2VW(Performed 09/09/2019) Performed for Pre-transplant evaluation for stem cell transplant * EKG 12-LEAD(Performed 09/09/2019) Performed for Pre-transplant evaluation for stem cell transplant * PHOSPHORUS BLOOD(Performed 08/26/2019) Performed for Diffuse large B-cell lymphoma, unspecified body region (HCC) * MAGNESIUM BLOOD(Performed 08/26/2019) Performed for Diffuse large B-cell lymphoma, unspecified body region (HCC) * CBC W AUTO DIFFERENTIAL(Performed 08/26/2019) Performed for Diffuse large B-cell lymphoma, unspecified body region (HCC) * COMPREHENSIVE METABOLIC PANEL(Performed 08/26/2019) Performed for Diffuse large B-cell lymphoma, unspecified body region (HCC) * PHOSPHORUS BLOOD(Performed 08/19/2019) * MAGNESIUM BLOOD(Performed 08/19/2019) * CBC W AUTO DIFFERENTIAL(Performed 08/19/2019) * COMPREHENSIVE METABOLIC PANEL(Performed 08/19/2019) * PT EVAL AND TREAT(Performed 08/18/2019) * OT EVAL AND TREAT(Performed 08/18/2019) * DIFFERENTIAL MANUAL(Performed 08/18/2019) * PHOSPHORUS BLOOD(Performed 08/18/2019) * MAGNESIUM BLOOD(Performed 08/18/2019) * CBC W AUTO DIFFERENTIAL(Performed 08/18/2019) * COMPREHENSIVE METABOLIC PANEL(Performed 08/18/2019) * GLUCOSE - POINT OF CARE(Performed 08/18/2019) * GLUCOSE - POINT OF CARE(Performed 08/18/2019) * GLUCOSE - POINT OF CARE(Performed 08/17/2019) * LAB MISC TEST (NOT BLOOD)(Performed 08/17/2019) Performed for Lymphosarcoma of spleen (HCC) * PATHOLOGY TISSUE(Performed 08/17/2019) Performed for Non-Hodgkin's lymphoma of spleen, unspecified non-Hodgkin lymphoma type (HCC) * ARTERIAL LINE NOTE(Performed 08/17/2019) * ENDOTRACHEAL TUBE NOTE(Performed 08/17/2019) * NE LAP,SPLENECTOMY(Performed 08/17/2019) Performed for Non-Hodgkin's lymphoma of spleen, unspecified non-Hodgkin lymphoma type (HCC) * PREPARE RBC LEUKOREDUCED UNIT(Performed 08/17/2019) Performed for Preoperative examination * TYPE + SCREEN PANEL(Performed 08/17/2019) Performed for Preoperative examination * NE LIVER ELASTOGRAPHY(Performed 08/15/2019) Performed for Pre-transplant evaluation for stem cell transplant * SIX MINUTE WALK(Performed 08/11/2019) Performed for Pre-transplant evaluation for stem cell transplant * PFT-LAB(Performed 08/11/2019) Performed for Pre-transplant evaluation for stem cell transplant * CBC W AUTO DIFFERENTIAL(Performed 08/11/2019) Performed for Diffuse large B-cell lymphoma, unspecified body region (HCC) * ECHO COMPLETE(Performed 08/11/2019) Performed for Pre-transplant evaluation for stem cell transplant * PET CT WHOLE BODY(Performed 08/11/2019) Performed for Pre-transplant evaluation for stem cell transplant * GLUCOSE SCREEN - POCT (IP) SLH(Performed 08/11/2019) * CT ABDOMEN PELVIS WO CONTRAST(Performed 07/26/2019) Performed for Diffuse large B-cell lymphoma, unspecified body region (HCC) * PHOSPHORUS BLOOD(Performed 07/26/2019) Performed for Diffuse large B-cell lymphoma, unspecified body region (HCC) * MAGNESIUM BLOOD(Performed 07/26/2019) Performed for Diffuse large B-cell lymphoma, unspecified body region (HCC) * CBC W AUTO DIFFERENTIAL(Performed 07/26/2019) Performed for Diffuse large B-cell lymphoma, unspecified body region (HCC) * COMPREHENSIVE METABOLIC PANEL(Performed 07/26/2019) Performed for Diffuse large B-cell lymphoma, unspecified body region (HCC) * URINE DRUG SCREEN IMMUNOASSAY(Performed 07/26/2019) Performed for History of marijuana use * URINE DRUG SCREEN IMMUNOASSAY(Performed 06/28/2019) Performed for B-cell lymphoma, unspecified B-cell lymphoma type, unspecified body region (HCC) * PHOSPHORUS BLOOD(Performed 06/28/2019) Performed for Diffuse large B-cell lymphoma, unspecified body region (HCC) * MAGNESIUM BLOOD(Performed 06/28/2019) Performed for Diffuse large B-cell lymphoma, unspecified body region (HCC) * CBC W AUTO DIFFERENTIAL(Performed 06/28/2019) Performed for Diffuse large B-cell lymphoma, unspecified body region (HCC) * COMPREHENSIVE METABOLIC PANEL(Performed 06/28/2019) Performed for Diffuse large B-cell lymphoma, unspecified body region (HCC) * NE LIVER ELASTOGRAPHY(Performed 06/11/2019) Performed for Splenomegaly * CT ABDOMEN PELVIS W CONTRAST(Performed 06/09/2019) Performed for Diffuse large B-cell lymphoma, unspecified body region (HCC) * HOLD SPECIMEN DNA TISSUE(Performed 06/09/2019) Performed for B-cell lymphoma, unspecified B-cell lymphoma type, unspecified body region (HCC) * FLOW CYTOMETRY BONE MARROW(Performed 06/09/2019) Performed for B-cell lymphoma, unspecified B-cell lymphoma type, unspecified body region (HCC) * BONE MARROW BIOPSY (STL)(Performed 06/09/2019) Performed for B-cell lymphoma, unspecified B-cell lymphoma type, unspecified body region (HCC) * PHOSPHORUS BLOOD(Performed 06/09/2019) Performed for Diffuse large B-cell lymphoma, unspecified body region (HCC) * MAGNESIUM BLOOD(Performed 06/09/2019) Performed for Diffuse large B-cell lymphoma, unspecified body region (HCC) * CBC W AUTO DIFFERENTIAL(Performed 06/09/2019) Performed for Diffuse large B-cell lymphoma, unspecified body region (HCC) * COMPREHENSIVE METABOLIC PANEL(Performed 06/09/2019) Performed for Diffuse large B-cell lymphoma, unspecified body region (HCC) * LDH BLOOD(Performed 05/24/2019) Performed for Diffuse large B-cell lymphoma, unspecified body region (HCC) * PHOSPHORUS BLOOD(Performed 05/24/2019) Performed for Diffuse large B-cell lymphoma, unspecified body region (HCC) * MAGNESIUM BLOOD(Performed 05/24/2019) Performed for Diffuse large B-cell lymphoma, unspecified body region (HCC) * CBC W AUTO DIFFERENTIAL(Performed 05/24/2019) Performed for Diffuse large B-cell lymphoma, unspecified body region (HCC) * COMPREHENSIVE METABOLIC PANEL(Performed 05/24/2019) Performed for Diffuse large B-cell lymphoma, unspecified body region (HCC) * BONE MARROW BIOPSY (STL)(Performed 03/23/2019) * FLOW CYTOMETRY BONE MARROW(Performed 03/23/2019) Performed for Non-Hodgkin lymphoma * QUANTIFERON-TB GOLD PLUS 4-TUBE(Performed 03/22/2019) Performed for Diffuse large B-cell lymphoma, unspecified body region (HCC) * TYPE + SCREEN PANEL(Performed 03/22/2019) Performed for Diffuse large B-cell lymphoma, unspecified body region (HCC) * URIC ACID BLOOD(Performed 03/22/2019) Performed for Diffuse large B-cell lymphoma, unspecified body region (HCC) * PHOSPHORUS BLOOD(Performed 03/22/2019) Performed for Diffuse large B-cell lymphoma, unspecified body region (HCC) * MAGNESIUM BLOOD(Performed 03/22/2019) Performed for Diffuse large B-cell lymphoma, unspecified body region (HCC) * LDH BLOOD(Performed 03/22/2019) Performed for Diffuse large B-cell lymphoma, unspecified body region (HCC) * IGM BLOOD(Performed 03/22/2019) Performed for Diffuse large B-cell lymphoma, unspecified body region (HCC) * IGG BLOOD(Performed 03/22/2019) Performed for Diffuse large B-cell lymphoma, unspecified body region (HCC) * IGA BLOOD(Performed 03/22/2019) Performed for Diffuse large B-cell lymphoma, unspecified body region (HCC) * HIV-1 HIV-2 ANTIGEN/ANTIBODY(Performed 03/22/2019) Performed for Diffuse large B-cell lymphoma, unspecified body region (HCC) * HERPES SIMPLEX 1+2 AB IGG SPEC RFLX HSV2(Performed 03/22/2019) Performed for Diffuse large B-cell lymphoma, unspecified body region (HCC) * HEPATITIS C ANTIBODY(Performed 03/22/2019) Performed for Diffuse large B-cell lymphoma, unspecified body region (HCC) * CYTOMEGALOVIRUS ANTIBODY IGG BLOOD(Performed 03/22/2019) Performed for Diffuse large B-cell lymphoma, unspecified body region (HCC) * HEPATITIS B CORE ANTIBODY TOTAL(Performed 03/22/2019) Performed for Diffuse large B-cell lymphoma, unspecified body region (HCC) * HEPATITIS B SURFACE ANTIGEN W RFLX CONFIRMATION(Performed 03/22/2019) Performed for Diffuse large B-cell lymphoma, unspecified body region (HCC) * COMPREHENSIVE METABOLIC PANEL(Performed 03/22/2019) Performed for Diffuse large B-cell lymphoma, unspecified body region (HCC) * CBC W AUTO DIFFERENTIAL(Performed 03/22/2019) Performed for Diffuse large B-cell lymphoma, unspecified body region (HCC) Results * AMBULATORY OXIMETRY (03/08/2024 2:07 PM CDT) Impressions Apolinar Ramos MD - 03/08/2024 2:07 PM CDT [facility] DEPARTMENT OF PULMONARY, CRITICAL CARE, AND SLEEP MEDICINE OXYGEN TITRATION STUDY Marcello Mansfield Mindy 03/08/2024 INTERPRETATION The test was performed on the treadmill at a speed of 1 mph at room air. ??The patient was able to complete 5 minutes with lowest SpO2 of 92%. The test was then ended due to development of left hip pain. Oxygen saturation remained above 92% throughout the limited test. IMPRESSION At the above level of activity the patient's oxygen saturation remained above 92% ??on room air. Compared to the previous oxygen titration study performed on 11/13/2021 the patient did not have any desaturation at similar activity level, however as the test was limited a direct comparison with 2MPH speed cannot be made. Shara Crouch, DO I have personally reviewed the pulmonary function test data and made adjustment to the interpretation where necessary. Apolinar Ramos MD 03/09/2024 Narrative Apolinar Ramos MD - 03/08/2024 2:07 PM CDT Shara Crouch DO ? 03/08/2024 ??4:12 PM Procedure Note Shara Crouch DO - 03/08/2024 2:07 PM CDT Images from the original note were not included. Andrew Francis MD RESPIRATORY THERAPY ORDERABLES * Complete PFT w/wo Bronchodilator [facility] PFT Lab (10/24/2023 4:08 PM CDT) Impressions Patrick Arita MD - 10/24/2023 4:08 PM CDT [facility] DEPARTMENT OF PULMONARY, CRITICAL CARE, AND SLEEP MEDICINE PULMONARY FUNCTION TEST Please see technologist's comments mentioned in the report. INTERPRETATION: SPIROMETRY: ?FVC: normal ?FEV1: normal ?FEV1/FVC ratio is normal. BRONCHODILATOR RESPONSE: There is no significant response to bronchodilator administration however does not preclude from bronchodilator therapy if clinically indicated otherwise FLOW-VOLUME LOOPS: Normal flow-volume loops LUNG VOLUMES: Lung volumes by body plethysmography show normal total lung volume and normal residual volume DLCO: Unadjusted for Hb and COHb is mildly decreased(z-score -1.65 to -2.5). IMPRESSION: 1. Normal spirometry and lung volumes 2. Mildly decreased unadjusted DLCO 3. No significant bronchodilator response, however this does not preclude the use of bronchodilators therapy if clinically indicated 4. When compared to the previous study on 11/13/2021, ??there is significant increase of FEV1 by 240ml, and significant increase of FVC by 510ml. There is no significant change of TLC or DLCO. Ted Ibanez MD PGY4 Pulmonary & Critical Care Fellow Division of Pulmonary, Critical Care and Sleep Medicine [facility] I have reviewed the above study and agree with the interpretation as listed above. Patrick Arita MD Auto Inspection Specialist of Pulmonary & Critical Care Medicine [facility] Pager [phone] Narrative Patrick Arita MD - 10/24/2023 4:08 PM CDT Ted Ibanez MD ? 10/24/2023 ??4:21 PM Andrew Francis MD RESPIRATORY THERAPY ORDERABLES * NE POLYSOM 6/>YRS CPAP 4/> PARM (11/25/2022 3:44 PM CDT) Narrative Tacos Ramos MD - 11/25/2022 3:44 PM CDT Tacos Ramos MD ? 11/25/2022 ??3:51 PM [facility] Accredited by the [employer] [facility], First Floor [address] [place] [address] Telephone : [phone] ? Medical Records Patient Name: ??Marcello Guillen : ??1970 Date of Study: ??10/30/2022 Referring Physician: ??Tacos Ramos MD Type of Montage: ??Respiratory Scoring System: ??[facility] FULL NIGHT THERAPEUTIC POLYSOMNOGRAM INTERPRETATION (10/30/2022) Procedure: The polysomnogram was performed with a veterinary surgery technologist in attendance. ??Central, occipital, and temporal EEG, EOG, submentalis, EMG, airflow via positive airway pressure, thoracoabdominal motion, anterior tibialis EMG, snore sensor, and pulse oximetry were monitored. ??Sleep stages, periodic limb movements, and EEG arousals were scored in 30-second epochs according to the AASM Scoring Manual. ??Apnea-hypopnea index was calculated using the recommended definition of hypopnea for scoring events. ??Data acquisition, collection, and scoring have been validated and clinically correlated. Sleep History: Mr. Marcello Guillen, a 52 year old male, was referred to the Sleep Disorders Clinic by Tacos Ramos MD for the evaluation of obstructive sleep apnea (LISSA). Current Outpatient Medications: ?acetaminophen (TYLENOL) 325 MG tablet, Take 1 tablet by mouth every 4 hours as needed Maximum allowable Acetaminophen amount = 4 Grams (4000 mg) ??/ 24 hours., Disp: , Rfl: ?acyclovir (ZOVIRAX) 400 MG tablet, TAKE 2 TABLETS BY MOUTH TWICE DAILY, Disp: 360 tablet, Rfl: 3 ?albuterol HFA (PROVENTIL;VENTOLIN;PROAIR) 108 (90 Base) MCG/ACT inhaler, Inhale 2 puffs by mouth every 4 hours, Disp: , Rfl: ?benzonatate (Tessalon) 200 MG capsule, Take 1 (one) capsule by mouth 3 times daily as needed for Cough, Disp: 30 capsule, Rfl: 0 ?clonazePAM (KLONOPIN) 1 MG tablet, Take 1 (one) tablet by mouth at bedtime, Disp: 30 tablet, Rfl: 0 ?escitalopram (LEXAPRO) 20 MG tablet, TAKE 1 TABLET BY MOUTH EVERY DAY, Disp: 30 tablet, Rfl: 11 ?HYDROcodone-acetaminophen (NORCO) 5-325 MG tablet, Take 1 tablet by mouth every 6 hours as needed for Pain, Disp: , Rfl: ?multivitamin daily tablet, Take 1 tablet by mouth daily with food, Disp: , Rfl: ?penicillin V potassium (VEETIDS) 250 MG tablet, Take 1 (one) tablet by mouth 2 times daily, Disp: 60 tablet, Rfl: 11 ?rOPINIRole (REQUIP) 0.25 MG tablet, Take 1 (one) tablet by mouth at bedtime Reasons: Restless Leg Syndrome, Disp: 90 tablet, Rfl: 3 ?Symbicort 160-4.5 MCG/ACT inhaler, , Disp: , Rfl: THERAPEUTIC STUDY Sleep Architecture: During this therapeutic study, the patient slept for 334.5 minutes and had normal sleep efficiency of 82.6%. ??The patient's initial sleep latency was reduced at 5.5 minutes. ??The initial REM latency was prolonged at 172.5 minutes. The sleep architecture was as follows: ??stage N1: 20.2%; stage N2: 34.1%; stage N3: 9.4%; stage REM: 36.3%. Respiratory Analysis, Oximetry Data, and Snoring Profile: Continuous positive airway pressure (CPAP) was titrated from a minimum setting of 8 cmH2O to a maximum setting of 14 cmH2O. CPAP at the maximal level of 14 cmH2O was associated with an increased overall apnea-hypopnea index of 5.7 per hour and an increased respiratory-related arousal index of 5.7 per hour. ??The patient had a very high air leak up to 101 L/min on CPAP of 14 cmH2O. The patient was then shifted to bilevel positive airway pressure (BPAP) due to persistently low oxygen saturation on CPAP. ??BPAP was titrated from a minimum setting of EPAP 4 cmH2O and IPAP of 8 cmH2O to a maximum setting of EPAP 12 cmH2O and IPAP of 22 cmH2O. BPAP at the maximal level of EPAP of 12 cmH2O and IPAP of 22 cmH2O was associated with a normal overall apnea-hypopnea index (AHI) of 1.1 per hour and a mildly increased respiratory-related arousal index of 6.4 per hour. The patient had persistently low oxygen saturation on BPAP so he was switched back to CPAP but now with oxygen side flow. ??CPAP was titrated from a minimum of 8 cmH2O to a maximum of 10 cmH2O while oxygen side flow was titrated from a minimum of 1 L/min to a maximum of 5 L/min via CPAP. ??CPAP at the maximum setting of 10 cmH2O plus oxygen at 5 L/min side flow was associated with a normal AHI of 1.4 per hour and an increased RERA index of 28.8 per hour. The patient had a decreased minimum oxygen saturation of 82% during REM sleep and a decreased minimum oxygen saturation of 82% during non-REM sleep. ?? The time spent with oxygen saturation less than 88% was 332.5 minutes of the total therapeutic sleep time. Periodic limb movement index: The patient's periodic limb movement index was within normal limits at 13.1 per hour. EEG Profile: The patient's total arousal index at maximal BPAP level of EPAP 12 cmH2O and IPAP of 22 cmH2O was within normal limits at 10.7 per hour. ?? There was no epileptiform activity during sleep. Cardiac profile: EKG showed normal sinus rhythm. ??No clinically significant arrhythmia was noted. Parasomnia Profile: No parasomnia was noted during this therapeutic study. IMPRESSION: 1. ??CPAP at the maximal setting of 14 cmH2O was partially effective in ameliorating obstructive sleep apnea but was associated with persistent sleep-related hypoxemia 2. ??BPAP at the maximal setting of EPAP of 12 cmH2O and IPAP cmH2O of 22 was effective in ameliorating obstructive apneas and hypopneas but was associated with persistence of a few respiratory effort-related arousals (RERA) and sleep-related hypoxemia 3. ??CPAP at 10 cmH2O plus oxygen at 5 L/min side flow was effective in ameliorating obstructive apneas and hypopneas but was associated with persistence of respiratory effort-related arousals (RERAs). RECOMMENDATIONS: 1. ??Suggest bilevel positive airway pressure (BPAP) plus oxygen side flow therapeutic trial. 2. ??Evaluate for causes of sleep-related hypoxemia disorder (e.g., hypoventilation, ventilation-perfusion mismatch, deadspace, shunt, diffusion abnormality, etc.). Tacos Gómez. ??MD Richard, [facility], [facility], [facility] Nurse Ob, [facility] Sleep [facility] [place] Professor of Internal Medicine Adjunct Auto Inspection Specialist of Neurology Division of Pulmonary, Critical Care, and Sleep Medicine [facility] This note was electronically signed on 11/25/2022. CC: ??Tacos Ramos MD [address] [facility] [address] [facility], ??[place] [address] Ran Nuñez MD Tacos Ramos MD PROCEDURE/MINOR PRIMO GICAL ORDERABLES * INFLUENZA A+B - POCT (IP) URGENT CARE (06/30/2022 7:04 PM BUSINESS ADMINISTRATION PROGRAM CHAIR) Influenza A Antigen Rapid Negative Negative [facility] CARE Influenza B Antigen Rapid Negative Negative [facility] U[facility]ENT CARE QC Verified Yes Yes [facility] URGENT [facility] Other SPECIMEN FROM NASAL FOSSAE / Unknown 06/30/2022 7:04 PM BUSINESS ADMINISTRATION PROGRAM CHAIR Radha Chicas APRN-FEEDER/FOLDER LAB - POINT OF CARE ORDERABLES [facility] U[facility]ENT CARE [address] [place] [address], [facility] [phone] * NE POLYSOM 6/> YRS 4/> SHARAD (05/17/2022 8:16 AM CDT) Narrative Tacos Ramos MD - 05/17/2022 8:16 AM CDT Tacos Ramos MD ? 05/17/2022 ??8:19 AM [facility] [place] Accredited by the [employer] [facility], First Floor [address] [facility] [place] [address] Telephone : [phone] ? Medical Records Patient Name: ?Eliseo Guillen : ??1970 Date of Study: ??05/16/2022 Referring Physician: ??Ran Nuñez MD Type of Montage: ??Respiratory Scoring System: ??[facility] FULL NIGHT DIAGNOSTIC POLYSOMNOGRAM INTERPRETATION (05/16/2022) Procedure: The polysomnogram was performed with a veterinary surgery technologist in attendance. ??Central, occipital, and temporal EEG, EOG, submentalis, EMG, nasal thermistor, nasal pressure, thoracoabdominal motion, anterior tibialis EMG, snore sensor, and pulse oximetry were monitored. ??Sleep stages, periodic limb movements, and EEG arousals were scored in 30-second epochs according to the AASM Scoring Manual. ??Apnea-hypopnea index was calculated using the recommended definition of hypopnea for scoring events. ??Data acquisition, collection, and scoring have been validated and clinically correlated. Sleep History: Mr. Marcello Guillen, a 52 year old male, was referred to the Sleep Disorders Clinic by Ran Nuñez MD for the evaluation of suspected obstructive sleep apnea (LISSA). Current Outpatient Medications: ?acetaminophen (TYLENOL) 325 MG tablet, Take 1 tablet by mouth every 4 hours as needed Maximum allowable Acetaminophen amount = 4 Grams (4000 mg) ??/ 24 hours. (Patient not taking: Reported on 12/20/2021), Disp: , Rfl: ?acyclovir (ZOVIRAX) 400 MG tablet, TAKE 2 TABLETS BY MOUTH TWICE DAILY, Disp: 360 tablet, Rfl: 3 ?albuterol HFA (PROVENTIL;VENTOLIN;PROAIR) 108 (90 Base) MCG/ACT inhaler, Inhale 2 puffs by mouth every 4 hours, Disp: , Rfl: ?clonazePAM (KLONOPIN) 1 MG tablet, Take 1 (one) tablet by mouth at bedtime, Disp: 30 tablet, Rfl: 0 ?diclofenac sodium EC (VOLTAREN) 75 MG tablet, TK 1 T PO BID PRF PAIN, Disp: , Rfl: ?escitalopram (LEXAPRO) 20 MG tablet, TAKE 1 TABLET BY MOUTH EVERY DAY, Disp: 30 tablet, Rfl: 11 ?fluticasone-salmeterol (Advair Diskus) 500-50 MCG/ACT inhaler, Inhale 1 (one) puff by mouth 2 times daily, Disp: 1 Each, Rfl: 5 ?HYDROcodone-acetaminophen (NORCO) 5-325 MG tablet, Take 1 tablet by mouth every 6 hours as needed for Pain, Disp: , Rfl: ?multivitamin daily tablet, Take 1 tablet by mouth daily with food, Disp: , Rfl: ?penicillin V potassium (VEETIDS) 250 MG tablet, Take 1 (one) tablet by mouth 2 times daily, Disp: 60 tablet, Rfl: 11 ?rOPINIRole (REQUIP) 0.25 MG tablet, Take 1 (one) tablet by mouth at bedtime Reasons: Restless Leg Syndrome, Disp: 90 tablet, Rfl: 3 ?sulfamethoxazole-trimethoprim (BACTRIM DS; SEPTRA DS) 800-160 MG tablet, TAKE 1 TABLET BY MOUTH EVERY FRIDAY, FRIDAY AND FRIDAY, Disp: 12 tablet, Rfl: 3 ?vitamin D3-cholecalciferol (CHOLECALCIFEROL) 25 MCG (1000 UNITS) tablet, Take 2 (two) tablets by mouth once daily, Disp: 180 tablet, Rfl: 3 DIAGNOSTIC STUDY Sleep Architecture: During this diagnostic study, the patient was monitored from 9:55 pm to 5:31 am. The patient slept for 394 minutes and had normal sleep efficiency of 86.4%. ??The patient's initial sleep latency was reduced at 4.5 minutes. ??The initial REM latency was prolonged at 284.5 minutes. The sleep architecture was as follows: ??stage N1: ??21.1%; stage N2: ??59.8%; stage N3: ??6.6%; stage REM: ??12.6%. Respiratory Analysis: The patient's overall apnea-hypopnea index (AHI) was increased at 10.8 per hour while the respiratory effort-related arousal index was decreased at 29.2 per hour. The overall respiratory disturbance index (RDI) was 40 per hour. The supine AHI was 11.6 per hour and the supine RERA index was 50.5 per hour. ??The lateral AHI was 10.2 per hour and the lateral RERA index was 13.1 per hour. The REM AHI was 32.7 per hour while the REM RERA index was 8.5 per hour. ??There were 1 obstructive apneas, 0 central apneas, 0 mixed apneas, 70 hypopneas, and 29.2 respiratory effort-related arousals (RERA). ??There was no evidence of periodic breathing. ?? Oximetry Data: The minimum oxygen saturation was decreased at 58%. ??The time spent with oxygen saturation less than 90% was 262.5 minutes of the total diagnostic sleep time. Snoring Profile: Frequent, moderate snoring was detected during this study. Periodic Limb Movements: The patient's periodic limb movement index was within normal limits at 0 per hour. ?? Brief episodes of phasic bruxism was noted during this diagnostic study. EEG Profile: The patient's total arousal index was elevated at 40.2 per hour. ?? Virtually all of the arousals were due to respiratory events. There was no epileptiform activity during sleep. Cardiac Profile: EKG showed normal sinus rhythm. ??No clinically significant arrhythmia was noted. Parasomnias: No parasomnia was observed during this diagnostic study. IMPRESSION: 1. ??Severe obstructive sleep apnea based on the respiratory disturbance index 2. ??Sleep-related hypoxemia; cannot rule out sleep-related hypoventilation as cause of hypoxemia since capnography was not performed. 3. ??Bruxism RECOMMENDATIONS: 1. ?? Suggest in-laboratory therapeutic polysomnography with continuous positive airway pressure (CPAP) or bilevel positive airway pressure (BPAP) +/- oxygen side flow titration. 2. ??Evaluate for causes of sleep-related hypoxemia disorder (e.g., hypoventilation, ventilation-perfusion mismatch, deadspace, shunt, diffusion abnormality, etc.). 3. ??Suggest dental evaluation for bruxism Tacos Gómez. ??MD Richard, [facility], [facility], [facility] Nurse Ob, [facility] Sleep Disorders Center Professor of Internal Medicine Adjunct Auto Inspection Specialist of Neurology Division of Pulmonary, Critical Care, and Sleep Medicine [facility] This note was electronically signed on 05/17/2022. CC: ??No referring provider defined for this encounter. Ran Nuñez MD Adarsh Garcia MD PROCEDURE/MINOR SURG ICAL ORDERABLES * ECHO COMPLETE W BUBBLE STUDY (02/22/2022 3:04 PM CDT) Only the most recent of2 resultswithin the time period is included. Anatomical Region Laterality Modality Chest Echo 02/22/2022 2:27 PM CDT Narrative Procedure Note Radha Aburto MD - 02/22/2022 Andrew Francis MD ECHOCARDIOGRAPHY RAD IANT * STREP PNEUMO AB IGG 23 SEROTYPES PANEL (12/20/2021 2:53 PM CDT) Pneumococcal Serotype 1 Antibody IgG >7.56 ug/mL 12/25/2021 5:29 AM CDT [facility] ([facility]) Pneumococcal Serotype 2 Antibody IgG 0.16 ug/mL 12/25/2021 5:29 AM CDT [facility] ([facility]) Pneumococcal Serotype 3 Antibody IgG 11.43 ug/mL 12/25/2021 5:29 AM CDT [facility] ([facility]) Pneumococcal Serotype 4 Antibody IgG >13.92 ug/mL 12/25/2021 5:29 AM CDT [facility] ([facility]) Pneumococcal Serotype 5 Antibody IgG 5.13 ug/mL 12/25/2021 5:29 AM CDT [facility] ([facility]) Pneumococcal Serotype 6B Antibody IgG 7.81 ug/mL 12/25/2021 5:29 AM CDT [facility] ([facility]) Pneumococcal Serotype 7F Antibody IgG 6.01 ug/mL 12/25/2021 5:29 AM CDT [facility] ([facility]) Pneumococcal Serotype 8 Antibody IgG 0.42 ug/mL 12/25/2021 5:29 AM CDT [facility] ([facility]) Pneumococcal Serotype 9N Antibody IgG 3.22 ug/mL 12/25/2021 5:29 AM CDT [facility] ([facility]) Pneumococcal Serotype 9V Antibody IgG 4.04 ug/mL 12/25/2021 5:29 AM CDT [facility] ([facility]) Pneumococcal Serotype 10a Antibody IgG 0.04 ug/mL 12/25/2021 5:29 AM CDT [facility] ([facility]) Pneumococcal Serotype 11a Antibody IgG 0.58 ug/mL 12/25/2021 5:29 AM CDT [facility] ([facility]) Pneumococcal Serotype 12F Antibody IgG 0.07 ug/mL 12/25/2021 5:29 AM CDT [facility] ([facility]) Pneumococcal Serotype 14 Antibody IgG 0.22 ug/mL 12/25/2021 5:29 AM CDT [facility] ([facility]) Pneumococcal Serotype 15b Antibody IgG 0.32 ug/mL 12/25/2021 5:29 AM CDT [facility] ([facility]) Pneumococcal Serotype 17f Antibody IgG 0.22 ug/mL 12/25/2021 5:29 AM CDT [facility] ([facility]) Pneumococcal Serotype 18C Antibody IgG 4.69 ug/mL 12/25/2021 5:29 AM CDT [facility] ([facility]) Pneumococcal Serotype 19a Antibody IgG 0.87 ug/mL 12/25/2021 5:29 AM CDT [facility]) Pneumococcal Serotype 19F Antibody IgG 35.66 ug/mL 12/25/2021 5:29 AM CDT [facility] ([facility]) Pneumococcal Serotype 20 Antibody IgG 0.19 ug/mL 12/25/2021 5:29 AM CDT [facility]) Pneumococcal Serotype 22f Antibody IgG 5.52 ug/mL 12/25/2021 5:29 AM CDT [facility] ([facility]) Pneumococcal Serotype 23F Antibody IgG 0.19 ug/mL 12/25/2021 5:29 AM CDT [facility]) Pneumococcal Serotype 33f Antibody IgG 8.99 ug/mL 12/25/2021 5:29 AM CDT [facility]) Interpretation Pneumococcal Serotype See Note 12/25/2021 5:29 AM CDT [facility] ([facility]) Comment: INTERPRETIVE INFORMATION: Streptococcus pneumoniae Antibodies, IgG A pre- and post-vaccination comparison is required to adequately assess the humoral immune response to Prevnar 7 (P7), Prevnar 13 (P13), and/or Pneumovax 23 (PNX) Streptococcus pneumoniae vaccines. Pre-vaccination samples should be collected prior to vaccine administration. Post-vaccination samples should be obtained at least 4 weeks after immunization. Testing of post-vaccination samples alone will provide only general immune status of the individual to various pneumococcal serotypes. In the case of pure polysaccharide vaccine, indication of immune system competence is further delineated as an adequate response to at least 50 percent of the serotypes in the vaccine challenge for those 2-5 years of age and to at least 70 percent of the serotypes in the vaccine challenge for those 6-65 years of age. Individual immune response may vary based on age, past exposure, immunocompetence, and pneumococcal serotype. Responder Status ? Antibody Ratio Non-Responder . . . . . . . . . . . . . . Less than 2-fold Weak Responder . . . . . . . . . . . . . 2-fold to 4-fold Good Responder . . . . . . . . . . . . . Greater than 4-fold A response to 50-70 percent or more of the serotypes in the vaccine challenge is considered a normal humoral response(1). Antibody concentration greater than 1.0 - 1.3 ug/mL is generally considered long-term protection(2). References: 1. Ashli ANDINO, Ryan JW, Earnest X, HE, Dev HR. Multilaboratory assessment of threshold versus fold-change algorithms for minimizing analytical variability in multiplexed pneumococcal IgG measurements. Clin Vaccine Immunol. 2014;21(7):982-8. 2. Ashli ANDINO, Dev WANG. Use and Clinical Interpretation of Pneumococcal Antibody Measurements in the Evaluation of Humoral Immune Function. Clin Vaccine Immunol. 2015;22(2):148-152. This test was developed and its performance characteristics determined by [facility]. It has not been cleared or approved by the US Food and Drug Administration. This test was performed in a CLIA certified laboratory and is intended for clinical purposes. Performed By: [facility] [address] [place] [id number] Patrol Guard: Clare Linda MD Blood BLOOD SPECIMEN / Unknown Venipuncture / Unknown 12/20/2021 2:53 PM CDT 12/20/2021 3:19 PM CDT Tiffanie Mcpherson ADVERTISING SALES AGENT-FEEDER/FOLDER LAB - CHEMISTRY ORDERABLES [facility] ([facility]) [address] * HEPATITIS B SURFACE ANTIBODY QUANT (12/20/2021 2:53 PM CDT) Hepatitis B Virus Surface Antibody 17.82 IU/L 12/22/2021 5:57 PM CDT [facility] [employer] ([facility]) Comment: The anti-HBs is greater than or equal to 10 IU/L. This patient has either had an antibody response to HBV vaccination, received a transfusion, or has recovered from HBV infection. This patient should be considered immune to hepatitis B. An anti-HBs result greater than or equal to 10 IU/L implies immunity. For post-vaccination antibody testing guidelines for the general public refer to MMWR July 26, 2005/Vol. 54(No. 16);08-26, and for healthcare workers refer to MMWR July 23, 2013/Vol. 62(No. 10);08-22. Reference Interval: anti-HBs 9.99 IU/L or less ....... Negative 10.00 IU/L or greater .... Positive Results greater than 1,000.00 IU/L are reported as greater than 1,000.00 IU/L. This assay should not be used for blood donor screening, associated re-entry protocols, or for screening Human Cell, Tissues and Cellular and Tissue-Based Products (HCT/P). Performed By: [facility] [address] [place] [address] Patrol Guard: Clare Linda MD Blood BLOOD SPECIMEN / Unknown Venipuncture / Unknown 12/20/2021 2:53 PM CDT 12/20/2021 3:19 PM CDT Tiffanie Mcpherson ADVERTISING SALES AGENT-FEEDER/FOLDER LAB - SEROLOGY ORDERABLES [facility] ([facility]) [address] * HAEMOPHILUS INFLUENZAE B ANTIBODY (12/20/2021 2:53 PM CDT) Pathologist [facility] Influenza B IgG Antibody 0.3 ug/mL 12/23/2021 7:27 AM CDT [facility] ([facility]) Comment: INTERPRETIVE INFORMATION: H. Influenzae b Ab, IgG ??Less than 1.0 ug/mL ...... Antibody concentration not ? protective. ??1.0 ug/mL or greater ..... Antibodies to H. Influenzae b ? detected. Suggestive of ? protection. Responder status is determined according to the ratio of post-vaccination concentration to pre-vaccination concentration of Haemophilus influenza b antibody, IgG as follows: ??1. If the post-vaccination concentration is less than ? 3.0 ug/mL, the patient is considered to be a ? non-responder. ??2. If the post-vaccination concentration is greater than ? or equal to 3.0 ug/mL, a patient with a ratio of ? greater than or equal to 4 is a good responder, a ratio ? of 2-4 is a weak responder, and a ratio of less than 2 ? is considered a non-responder. This test was developed and its performance characteristics determined by [facility]. It has not been cleared or approved by the US Food and Drug Administration. This test was performed in a CLIA certified laboratory and is intended for clinical purposes. Performed By: [facility] [address] [place] [address] Patrol Guard: Clare Linda MD Blood BLOOD SPECIMEN / Unknown Venipuncture / Unknown 12/20/2021 2:53 PM CDT 12/20/2021 3:19 PM CDT Tiffanie Mcpherson ADVERTISING SALES AGENT-FEEDER/FOLDER LAB - CHEMISTRY ORDERABLES [employer] ([facility]) [address] [place] [address], [facility] * PFT OXYGEN DESATURATION STUDY (11/13/2021 1:27 PM CDT) Impressions Apolinar Ramos MD - 11/13/2021 1:27 PM CDT [facility] DEPARTMENT OF PULMONARY, CRITICAL CARE, AND SLEEP MEDICINE OXYGEN TITRATION STUDY Marcello Guillen 11/18/2021 INTERPRETATION The test was performed on the treadmill at a speed of 1 mph at room air with a starting SpO2 of 98%. ??The patient was able to complete 4 minutes with lowest SpO2 of 90%. Then the treadmill speed was increased to 2 mph, the patient's SpO2 remained above 90% throughout the test. ?? IMPRESSION 1. At the above level of activity the patient's oxygen saturation remained above 90% on room air. Netta Forrest MD (fellow) Pulmonary & Critical Care I have personally reviewed the pulmonary function test data and made adjustment to the interpretation where necessary. Apolinar Ramos MD 11/21/2021 Narrative Apolinar Ramos MD - 11/13/2021 1:27 PM CDT Christina Forrest MD ? 11/18/2021 ??4:49 PM Andrew Francis MD PFT ORDERABLES * COMPLETE PFT (11/13/2021 1:26 PM CDT) Impressions Apolinar Ramos MD - 11/13/2021 1:26 PM CDT [facility] DEPARTMENT OF PULMONARY, CRITICAL CARE, AND SLEEP MEDICINE PULMONARY FUNCTION TEST Please see technologist's comments mentioned in the report. INTERPRETATION: SPIROMETRY: ?FVC: decreased ?FEV1: normal ?FEV1/FVC ratio is normal. (This data is based on the best response by the patient, including pre- bronchodilator and post-bronchodilator.) BRONCHODILATOR RESPONSE: There is no response to bronchodilator administration FLOW-VOLUME LOOPS: Normal flow-volume loops LUNG VOLUMES: Lung volumes by body plethysmography showed normal volumes DLCO: Unadjusted for Hb and COHb is Decreased DLCO: Corrected for Hb and COHb is: Not able to perform AIRWAY RESISTANCE: The airway resistance is normal and the specific conductance is normal ARTERIAL BLOOD GAS ANALYSIS: Not performed IMPRESSION: 1. Non-specific ventilatory limitation 2. Mild decreased uncorrected DLCO. 3. No positive bronchodilator response, however this does not preclude the use of bronchodilators 4. Compared with previous study on 08/11/2019. There was a significant decrease in FEV1 by 290ml and TLC by 2330ml and DLCO by 9.11 mLCO/min/mmHg. ??There was no significant change in FVC. Netta Forrest M.D. Division of Pulmonary, Critical Care, & Sleep Medicine [facility] I have personally reviewed the pulmonary function test data and made adjustment to the interpretation where necessary. Apolinar Ramos MD 11/21/2021 Narrative Apolinar Ramos MD - 11/13/2021 1:26 PM CDT Christina Forrest MD ? 11/18/2021 ??4:49 PM Hillary Apple MD RESPIRATORY THERAPY ORDERABLES * FLOW CYTOMETRY T-HELPER CELLS (CD4) COUNT (08/30/2021 11:36 AM BUSINESS ADMINISTRATION PROGRAM CHAIR) Only the most recent of2 resultswithin the time period is included. Reason for test Diffuse large B-cell lymphoma, unspecified body region S/P autologous bone marrow transplantation V42.81 08/30/2021 3:30 PM [facility] Client Specimen ID # [id number] 08/30/2021 3:30 PM [facility] Number of Markers 3 08/30/2021 3:30 PM [facility] Flow Cytometry Results Differential Result Comment WBC Count /uL 12,600 % Lymphocytes 28 Lymphocyte Count u/L 3,528 Cell Region A: Lymphocytes Surface Marker Results % Absolute Count (cells/uL) CD3 85 2,999 CD3+CD4+ 10 353 CD3+CD8+ 73 2,575 CD4:CD8 Ratio 0.14 08/30/2021 3:30 PM [facility] Flow Cytometry Interpretation Testing is technical only and does not require an interpretation of results. 08/30/2021 3:30 PM [facility] Reference Range Adult Normal Reference Range Adult (> 18 years) CD3 54-84 % CD4 33-63 % CD8 12-39 % CD19 5-19 % CD56 6-26 % CD4+CD45RA+ 30-50 % CD4+CD45RO+ 17-42 % CD19+CD27+ 7-48 % CD19+CD27+IgD+ 7-29 % CD19+CD27+IgD- 3-23 % CD19+LL28-BmN+ 29-93 % % 08/30/2021 3:30 PM [facility] Disclaimer Test performed at [facility], [address], [place], [address]. This test was developed and its performance characteristics determined by the Flow Cytometry Laboratory. It has not been cleared by the [place] Food and Drug Administration (FDA). The FDA has determined that such clearance or approval is not necessary. This test is used for clinical purposes. It should not be regarded as investigational or for research. This laboratory is regulated under the Clinical Laboratory Improvement Amendments of 1998 (CLIA) as a qualified to perform high complexity clinical testing. By law [place], CD4 lymphocyte counts on patients with HIV infection must be reported by the physician to the [facility] authority. 08/30/2021 3:30 PM [facility] Embedded Images 3:30 PM [facility] Blood BLOOD SPECIMEN / Unknown Venipuncture / Unknown 08/30/2021 11:36 AM BUSINESS ADMINISTRATION PROGRAM CHAIR 08/30/2021 11:45 AM [facility] Tiffanie Mcpherson APRN-FEEDER/FOLDER LAB - PATHOLOGY /CYTOLOGY ORDERABLES Performing Organization Address [facility]/State/[facility] Co de Phone Number [facility] [place] [address], [facility] [phone] * PSA FREE + TOTAL PANEL (08/30/2021 11:36 AM BUSINESS ADMINISTRATION PROGRAM CHAIR) PSA Total 2.3 0.0 - 4.0 ng/mL 08/30/2021 12:32 PM [facility] PSA Free 0.27 0.00 - 0.50 ng/mL 08/30/2021 12:32 PM [facility] PSA % Free 12 See Comment % 08/30/2021 12:32 PM [facility] Comment: ??[facility] Clinical Laboratory uses the [employer] Industrial Maintenance Instructor method for Total and Free PSA measurements. ??Measurements obtained with different assay methods should not be used interchangeably. ?Patients with normal Digital Rectal Exam (LELIA) results and Total PSA results of 4.0 - 10.0 ng/mL represent a diagnostic castillo zone. ??The decision of whether or not to perform a biopsy should not be based on the value of Free and/or Total PSA alone. Distribution of DISTANCE EDUCATION COORDINATOR % Free PSA Values for specimens with DISTANCE EDUCATION COORDINATOR Total PSA values between 4.0 and 10.0 ng/mL: ?% Free PSA Ranges ? <10.0 ??10.0-15.0 ??15.0-20.0 ?? 20.0-26.0 ?>26.0 ? Number of ? ----- ??--------- ??--------- ?? --------- ?----- ? Subjects Biopsy ? --------- ------ Negative ? 307 ?9.4 ?22.5 ?25.4 ?24.8 ? 17.9 Positive ? 123 ? 27.6 ?30.9 ?17.9 ?15.4 ?8.1 ? PSA % Free 08/30/2021 12:32 PM BUSINESS ADMINISTRATION PROGRAM CHAIR [facility] Blood BLOOD SPECIMEN / Unknown Venipuncture / Unknown 08/30/2021 11:36 AM BUSINESS ADMINISTRATION PROGRAM CHAIR 08/30/2021 11:46 AM BUSINESS ADMINISTRATION PROGRAM CHAIR Tiffanie Mcpherson ADVERTISING SALES AGENT-FEEDER/FOLDER LAB - CHEMISTRY ORDERABLES Performing Organization Address [facility]/State/[facility] Co de Phone Number [facility] [address] [place] [phone], [facility] [phone] * VARICELLA ZOSTER ANTIBODY IGG (08/30/2021 11:36 AM BUSINESS ADMINISTRATION PROGRAM CHAIR) Only the most recent of2 resultswithin the time period is included. Varicella zoster Virus Antibody IgG 345.3 IV 08/31/2021 11:45 PM BUSINESS ADMINISTRATION PROGRAM CHAIR [employer] ([facility]) Comment: INTERPRETIVE INFORMATION: VZV Ab, IgG 134.9 IV or less ....... Negative - No significant level of ? detectable IgG varicella-zoster ? antibody. 135.0 - 164.9 IV ....... Equivocal - Repeat testing in ? 10-14 days may be helpful. 165.0 IV or greater .... Positive - IgG antibody to ? varicella-zoster detected, which ? may indicate a current or past ? varicella-zoster infection. The best evidence for current infection is a significant change on two appropriately timed specimens, where both tests are done in the same laboratory at the same time. Performed By: [facility] [address] [place] [address] Patrol Guard: Clare Linda MD Blood BLOOD SPECIMEN / Unknown Venipuncture / Unknown 08/30/2021 11:36 AM BUSINESS ADMINISTRATION PROGRAM CHAIR 08/30/2021 11:44 AM BUSINESS ADMINISTRATION PROGRAM CHAIR Tiffanie Mcpherson [facility] - CHEMISTRY ORDERABLES [facility] ([facility]) [address] [place] [address], [facility] * VITAMIN D 25-HYDROXY (08/30/2021 11:36 AM BUSINESS ADMINISTRATION PROGRAM CHAIR) Only the most recent of2 resultswithin the time period is included. [facility] Vitamin D, 25 Hydroxy 35.0 30.0 - 80.0 ng/mL 08/30/2021 12:58 PM BUSINESS ADMINISTRATION PROGRAM CHAIR [facility] Comment: The recommendations for 25-Hydroxy Vitamin D clinical decision points are as follows: ? Deficient: ? <20.0 ng/mL ? Insufficient: ??20.0 - 29.9 ng/mL ? Sufficient: ? > or =30.0 ng/mL If the 25-Hydroxy Vitamin D results are inconsitent with clinical evidence, it is recommended that follow-up testing using a method such as LC/MS/MS be performed to confirm the result. Reference: ?The Endocrine Society Clinical Practice Guidelines. 2011 ? Blood BLOOD SPECIMEN / Unknown Venipuncture / Unknown 08/30/2021 11:36 AM BUSINESS ADMINISTRATION PROGRAM CHAIR 08/30/2021 11:46 AM BUSINESS ADMINISTRATION PROGRAM CHAIR Tiffanie Mcpherson ADVERTISING SALES AGENT-[facility] - CHEMISTRY ORDERABLES [facility] [address] [place] [address], [place] [phone] * (ABNORMAL) CBC W AUTO DIFFERENTIAL (08/30/2021 11:36 AM [facility]) Only the most recent of78 resultswithin the time period is included. WBC 12.6(H) 3.5 - 10.5 10? 3 /uL 08/30/2021 12:02 PM [facility] RBC 4.19(L) 4.30 - 5.70 10? 6 /uL 08/30/2021 12:02 PM [facility] Hemoglobin 13.4 12.0 - 17.6 g/dL 08/30/2021 12:02 PM [facility] Hematocrit 39.1 35.2 - 51.7 % 08/30/2021 12:02 PM [facility] MCV 93.3 80.7 - 98.3 fL 08/30/2021 12:02 PM [facility] MCH 32.0 26.7 - 34.0 pg 08/30/2021 12:02 PM [facility] MCHC 34.3 30.8 - 35.9 g/dL 08/30/2021 12:02 PM [facility] Platelet Count 274 150 - 400 10? 3 /uL 08/30/2021 12:02 PM [facility] RDW-SD 56.0(H) 36.0 - 50.0 fL 08/30/2021 12:02 PM [facility] RDW-CV 16.3(H) 11.2 - 14.8 % 08/30/2021 12:02 PM [facility] MPV 12.3 9.4 - 12.9 fL 08/30/2021 12:02 PM [facility] nRBC Absolute 0.00 0 10? 3 /uL 08/30/2021 12:02 PM [facility] nRBC Auto 0.0 0 /100 WBC 08/30/2021 12:02 PM [facility] Neutrophils % 58.0 35.0 - 70.0 % 08/30/2021 12:02 PM [facility] Lymphocytes % 31.2 20.0 - 43.0 % 08/30/2021 12:02 PM [facility] Monocytes % 6.1 5.0 - 13.0 % 08/30/2021 12:02 PM [facility] Eosinophils % 3.3 0.0 - 6.0 % 08/30/2021 12:02 PM [facility] Basophil % 1.1 0.0 - 2.0 % 08/30/2021 12:02 PM [facility] Neutrophils Absolute 7.3(H) 1.6 - 7.0 10? 3 /uL 08/30/2021 12:02 PM [facility] Lymphocyte Absolute 3.9 1.1 - 3.9 10? 3 /uL 08/30/2021 12:02 PM [facility] Monocytes Absolute 0.77 0.26 - 1.07 10? 3 /uL 08/30/2021 12:02 PM [facility] Eosinophils Absolute 0.42 0.00 - 0.47 10? 3 /uL 08/30/2021 12:02 PM [facility] Basophils Absolute 0.14(H) 0.00 - 0.08 10? 3 /uL 08/30/2021 12:02 PM [facility] Immature Granulocytes % 0.3 0.0 - 1.0 % 08/30/2021 12:02 PM [facility] Immature Granulocytes Absolute 0.04 08/30/2021 12:02 PM [facility] Blood BLOOD SPECIMEN / Unknown Venipuncture / Unknown 08/30/2021 11:36 AM BUSINESS ADMINISTRATION PROGRAM CHAIR 08/30/2021 11:45 AM BUSINESS ADMINISTRATION PROGRAM CHAIR Tiffanie Mcpherson ADVERTISING SALES AGENT-FEEDER/[facility]OL[facility] LAB - HEMATOLOG Y ORDERABLES Performing Organization Address [facility] Co de Phone Number [address] [address] [phone] * (ABNORMAL) COMPREHENSIVE METABOLIC PANEL (08/30/2021 11:36 AM BUSINESS ADMINISTRATION PROGRAM CHAIR) Only the most recent of73 resultswithin the time period is included. BUN 12 7 - 26 mg/dL 08/30/2021 12:10 PM [facility] Creatinine 1.02 0.71 - 1.16 mg/dL 08/30/2021 12:10 PM [facility] Sodium 140 136 - 145 mmol/L 08/30/2021 12:10 PM [facility] Potassium 4.8(H) 3.5 - 4.5 mmol/L 08/30/2021 12:10 PM [facility] Chloride 107 98 - 107 mmol/L 08/30/2021 12:10 PM [facility] CO2 23 22 - 29 mmol/L 08/30/2021 12:10 PM [facility] Glucose 99 70 - 115 mg/dL 08/30/2021 12:10 PM [facility] Calcium 9.4 8.4 - 10.2 mg/dL 08/30/2021 12:10 PM [facility] Protein Total 6.6 6.0 - 8.3 g/dL 08/30/2021 12:10 PM [facility] Albumin 3.9 3.4 - 5.0 g/dL 08/30/2021 12:10 PM [facility] Bilirubin Total 0.4 0.2 - 1.2 mg/dL 08/30/2021 12:10 PM [facility] Alkaline Phosphatase 113 40 - 150 U/L 08/30/2021 12:10 PM [facility] ALT 38 5 - 55 U/L 08/30/2021 12:10 PM [facility] AST 26 5 - 34 U/L 08/30/2021 12:10 PM [facility] Anion Gap 15 8 - 18 08/30/2021 12:10 PM [facility] BUN/Creatinine Ratio 12 7 - 23 08/30/2021 12:10 PM [facility] Osmolality Calculated 290 270 - 300 mOsm/kg 08/30/2021 12:10 PM [facility] Albumin/Globulin Ratio 1.4 1.1 - 2.3 08/30/2021 12:10 PM [facility] eGFR by CKD-EPI 85(L) >=90 mL/min/1.7 3 m2 08/30/2021 12:10 PM [facility] Blood BLOOD SPECIMEN / Unknown Venipuncture / Unknown 08/30/2021 11:36 AM BUSINESS ADMINISTRATION PROGRAM CHAIR 08/30/2021 11:46 AM BUSINESS ADMINISTRATION PROGRAM CHAIR Tiffanie Mcpherson ADVERTISING SALES AGENT-FEEDER/FOLDER LAB - CHEMISTRY ORDERABLES [address] [address], [facility] [phone] * (ABNORMAL) PHOSPHORUS BLOOD (08/30/2021 11:36 AM BUSINESS ADMINISTRATION PROGRAM CHAIR) Only the most recent of73 resultswithin the time period is included. Phosphorus 1.9(L) 2.8 - 5.1 mg/dL 08/30/2021 12:10 PM BUSINESS ADMINISTRATION PROGRAM CHAIR [facility] Blood BLOOD SPECIMEN / Unknown Venipuncture / Unknown 08/30/2021 11:36 AM BUSINESS ADMINISTRATION PROGRAM CHAIR 08/30/2021 11:46 AM BUSINESS ADMINISTRATION PROGRAM CHAIR Tiffanie Mcpherson ADVERTISING SALES AGENT[facility] - CHEMISTRY ORDERABLES Performing Organization Address [facility] de Phone Number [address] [address], [facility] [phone] * MAGNESIUM BLOOD (08/30/2021 11:36 AM BUSINESS ADMINISTRATION PROGRAM CHAIR) Only the most recent of77 resultswithin the time period is included. Magnesium 1.9 1.6 - 2.6 mg/dL 08/30/2021 12:10 PM BUSINESS ADMINISTRATION PROGRAM CHAIR [facility] Blood BLOOD SPECIMEN / Unknown Venipuncture / Unknown 08/30/2021 11:36 AM BUSINESS ADMINISTRATION PROGRAM CHAIR 08/30/2021 11:46 AM BUSINESS ADMINISTRATION PROGRAM CHAIR Tiffanie Mcpherson [facility] - CHEMISTRY ORDERABLES Performing Organization Address [facility] Co de Phone Number [address] [address], [facility] [phone] * IRON BLOOD (08/30/2021 11:36 AM BUSINESS ADMINISTRATION PROGRAM CHAIR) Only the most recent of3 resultswithin the time period is included. Iron 138 50 - 175 ug/dL 08/30/2021 12:39 PM BUSINESS ADMINISTRATION PROGRAM CHAIR [facility] Blood BLOOD SPECIMEN / Unknown Venipuncture / Unknown 08/30/2021 11:36 AM BUSINESS ADMINISTRATION PROGRAM CHAIR 08/30/2021 11:44 AM BUSINESS ADMINISTRATION PROGRAM CHAIR Tiffanie Mcpherson ADVERTISING SALES AGENT-FEEDER/FOLDER LAB - CHEMISTRY ORDERABLES Performing Organization Address [facility]/ZIP Co de Phone Number [facility] [address] [place] [address], [facility] [phone] * (ABNORMAL) IGG BLOOD (08/30/2021 11:36 AM BUSINESS ADMINISTRATION PROGRAM CHAIR) Only the most recent of14 resultswithin the time period is included. IgG 416(L) 767-1,590 mg/dL 08/30/2021 12:11 PM [facility] Blood BLOOD SPECIMEN / Unknown Venipuncture / Unknown 08/30/2021 11:36 AM BUSINESS ADMINISTRATION PROGRAM CHAIR 08/30/2021 11:44 AM BUSINESS ADMINISTRATION PROGRAM CHAIR Tiffanie Mcpherson ADVERTISING SALES AGENT-[facility] - CHEMISTRY ORDERABLES Performing Organization Address [facility] Co de Phone Number [address] [address], [place] [phone] * (ABNORMAL) LIPID PROFILE (08/30/2021 11:36 AM BUSINESS ADMINISTRATION PROGRAM CHAIR) Cholesterol Total 207(H) <200 mg/dL 08/30/2021 12:10 PM [facility] HDL 38(L) >40 mg/dL 08/30/2021 12:10 PM [facility] Comment: ATP III Classification of HDL Cholesterol: ? <40 mg/dL: ??Considered a major risk factor. ? >60 mg/dL: ??Considered a negative risk factor. ? LDL Calculated 152(H) <100 mg/dL 08/30/2021 12:10 PM [facility] Comment: ATP III Classification of LDL Cholesterol: ?<100 mg/dL: ??Optimal ? 100 - 129 mg/dL: ??Near Optimal/Above Optimal ? 130 - 159 mg/dL: ??Borderline High ? 160 - 189 mg/dL: ??High ?>190 mg/dL: ??Very High ? Triglycerides 87 <150 mg/dL 08/30/2021 12:10 PM BUSINESS ADMINISTRATION PROGRAM CHAIR [facility] Comment: ATP III Classification of Triglycerides: ?<150 mg/dL: ??Normal ? 150 - 199 mg/dL: ??Borderline High ? 200 - 400 mg/dL: ??High ?>500 mg/dL: ??Very High Blood BLOOD SPECIMEN / Unknown Venipuncture / Unknown 08/30/2021 11:36 AM BUSINESS ADMINISTRATION PROGRAM CHAIR 08/30/2021 11:46 AM BUSINESS ADMINISTRATION PROGRAM CHAIR Tiffanie Mcpherson ADVERTISING SALES AGENT-FEEDER/FOLDER LAB - CHEMISTRY ORDERABLES [address] [address], [facility] [phone] * CT CHEST ABDOMEN PELVIS WO CONT (08/30/2021 10:33 AM BUSINESS ADMINISTRATION PROGRAM CHAIR) Anatomical Region Laterality Modality Chest, Abdomen, Pelvis Computed Tomography 08/30/2021 10:4 9 AM BUSINESS ADMINISTRATION PROGRAM CHAIR Impressions 08/30/2021 2:51 PM BUSINESS ADMINISTRATION PROGRAM CHAIR Impression: 1.Interval improvement in persistent reticulation, cystic changes and bronchiectasis with mild volume loss bilaterally, representing sequela of Covid pneumonia. 2.Left-sided nonobstructing nephrolithiasis with no evidence of hydronephrosis. 3.Sigmoid colonic diverticulosis without evidence of diverticulitis. Report drafted by Suzanna Felipe (resident) Dr. Vineet Harris M.D. have personally reviewed and interpreted this examination/study. This report was electronically signed by Vineet FERNANDES M.D. ??on 08/30/2021 2:51 PM . Narrative 08/30/2021 2:51 PM BUSINESS ADMINISTRATION PROGRAM CHAIR Procedure Information DATE: 08/30/2021 10:33 AM EXAMINATION: Computed tomography (CT) of the chest, abdomen, and pelvis without contrast TECHNIQUE: CT of the chest, abdomen, and pelvis was performed without contrast according to standard protocol. Clinical Information HISTORY: C83.30: Diffuse large B-cell lymphoma, unspecified body region COMPARISON: CT chest without contrast 09/28/2020. CT chest abdomen pelvis with contrast 02/26/2020. Findings Evaluation of visceral and vascular structures is degraded due to lack of intravenous contrast administration. Chest: Lines/Tubes: None. Lower neck and axillae: Normal. Mediastinum and Mary: A mildly enlarged preaortic lymph node measures up to 1.2 cm. There is no other significant mediastinal or hilar lymphadenopathy. Heart and Pericardium: The cardiac chambers are normal in size. No pericardial fluid or thickening is present. Lung Parenchyma, Airways, and Pleural Spaces: There is redemonstration of mixed reticulation and cystic changes in the anterior left upper lung, improved from prior study, with associated bronchiectasis. There is persistent mild left upper lobe volume loss. There are persistent patchy reticulations of the lateral right upper lung, improved from prior exam. There is interval improvement in previously seen mild bronchiectasis. There is mild left basilar atelectasis. There is no pleural effusion or pneumothorax. Abdomen/pelvis: Hepatobiliary: The liver appears normal in limits of a noncontrast examination. The gallbladder is normal. No intrahepatic or extrahepatic bile duct dilatation. Pancreas: Normal. Spleen: The spleen is surgically absent.. Kidneys: There are 2 nonobstructing renal calculi in the left kidney inferior pole. No right-sided renal calculi. No hydronephrosis bilaterally. Adrenals: Normal. Retroperitoneum/peritoneum/mesentery: There is no significant mesenteric or retroperitoneal lymphadenopathy. No free air or free fluid. Gastrointestinal: A small hiatal hernia is present. The stomach and visualized loops of bowel are unremarkable. Sigmoid colonic diverticulosis is present without evidence of diverticulitis. Appendix is normal. Left anterior abdominal wall widemouth hernia is present with bowel protruding through defect (image 133, series 3). Pelvic Structures: The bladder is nondistended. No pelvic free fluid. Vasculature: Scattered atherosclerotic vasculature changes. Bones: The visible osseous structures are intact. Degenerative changes are seen in the spine. There is grade 1 anterolisthesis of L5 on S1. There is bilateral L5 pars defects. Soft tissues: Normal. Procedure Note Elizabeth Fernandes MD - 08/30/2021 Procedure Information DATE: 08/30/2021 10:33 AM EXAMINATION: Computed tomography (CT) of the chest, abdomen, and pelvis without contrast TECHNIQUE: CT of the chest, abdomen, and pelvis was performed without contrast according to standard protocol. Clinical Information HISTORY: C83.30: Diffuse large B-cell lymphoma, unspecified body region COMPARISON: CT chest without contrast 09/28/2020. CT chest abdomen pelvis with contrast 02/26/2020. Findings Evaluation of visceral and vascular structures is degraded due to lackof intravenous contrast administration. Chest: Lines/Tubes: None. Lower neck and axillae: Normal. Mediastinum and Mary: A mildly enlarged preaortic lymph node measures up to 1.2 cm. There isno other significant mediastinal or hilar lymphadenopathy. Heart and Pericardium: The cardiac chambers are normal in size. No pericardial fluid or thickening is present. Lung Parenchyma, Airways, and Pleural Spaces: There is redemonstration of mixed reticulation and cystic changes in the anterior left upper lung, improved from prior study, with associated bronchiectasis. There is persistent mild left upper lobe volume loss. There are persistent patchy reticulations of the lateral right upperlung, improved from prior exam. There is interval improvement in previouslyseen mild bronchiectasis. There is mild left basilar atelectasis. There is no pleural effusion or pneumothorax. Abdomen/pelvis: Hepatobiliary: The liver appears normal in limits of a noncontrast examination. The gallbladder is normal. No intrahepatic or extrahepatic bile duct dilatation. Pancreas: Normal. Spleen: The spleen is surgically absent.. Kidneys: There are 2 nonobstructing renal calculi in the left kidney inferiorpole. No right-sided renal calculi. No hydronephrosis bilaterally. Adrenals: Normal. Retroperitoneum/peritoneum/mesentery: There is no significant mesenteric or retroperitoneal lymphadenopathy.No free air or free fluid. Gastrointestinal: A small hiatal hernia is present. The stomach and visualized loops of bowel are unremarkable. Sigmoid colonic diverticulosis is presentwithout evidence of diverticulitis. Appendix is normal. Left anterior abdominal wall widemouth hernia is present with bowel protruding through defect (image 133, series 3). Pelvic Structures: The bladder is nondistended. No pelvic free fluid. Vasculature: Scattered atherosclerotic vasculature changes. Bones: The visible osseous structures are intact. Degenerative changes are seen in the spine. There is grade 1 anterolisthesis of L5 on S1. There is bilateral L5 pars defects. Soft tissues: Normal. Impression: 1.Interval improvement in persistent reticulation, cystic changes and bronchiectasis with mild volume loss bilaterally, representing sequelaof Covid pneumonia. 2.Left-sided nonobstructing nephrolithiasis with no evidence of hydronephrosis. 3.Sigmoid colonic diverticulosis without evidence of diverticulitis. Report drafted by Suzanna Felipe (resident) Dr. Vineet Harris M.D. have personally reviewed and interpretedthis examination/study. This report was electronically signed by Vineet FERNANDES M.D. on 08/30/2021 2:51 PM . Hillary Apple MD CT ORDERABLES * SARS-COV-2 (COVID-19) INTERNAL (04/21/2021 11:56 AM CDT) Only the most recent of13 resultswithin the time period is included. COVID-19 PCR Not detected Not detected 2021 6:42 AM CDT [facility] Microbiology SPECIMEN FROM NASOPHARYNGEAL STRUCTURE / Unknown Collection / Unknown 04/21/2021 11:56 AM CDT 04/21/2021 11:56 AM CDT Narrative [facility] - 2021 6:42 AM CDT This nucleic acid amplification assay performance was validated by [facility]. This test has been authorized by the Food and Drug administration (FDA)under an Emergency??Use Authorization (EUA). This test has been validated in accordance with the FDA's guidance document Policy for Diagnostic Testing in Laboratories Certified to perform High Complexity Testing under CLIA prior to Emergency Use Authorization for Coronavirus Disease-2019 during the Public Health Emergency issued on October 02, 2019. FDA independent review of this validation is pending. This test is only authorized for the duration of time the declaration that circumstances exist justifying the authorization of emergency use of in vitro diagnostic tests for detection of SARS-CoV-2 virus and/or diagnosis of COVID-19 infection under section 564(b)(1) of the Act, 21 U.S.C 360bbb-3 (b)(1), unless the authorization is terminated or revoked sooner. Fact Sheets for this EUA assay are available upon request. [facility] - MICR OBIOLOGY ORDERABLES [facility] [address] [place] [address], [facility] [phone] * XR CHEST 2VW (04/21/2021 11:47 AM CDT) Only the most recent of2 resultswithin the time period is included. Anatomical Region Laterality Modality Chest Radiographic Chayito ging 04/21/2021 11:4 4 AM CDT Narrative 04/21/2021 11:45 AM CDT Chest 2 views HISTORY: Cough, Covid FINDINGS: No prior. Heart is enlarged. There is a generalized prominence interstitial pattern suggestive of chronic change. Question superimposed peripheral opacities could represent Covid. No consolidation or pneumothorax or pleural effusion. Please correlate with pulmonary history. *Reading Radiologist: Elkin Saeed on 04/21/2021 at 11:45 AM Procedure Note Elkin Saeed MD - 04/21/2021 Chest 2 views HISTORY: Cough, Covid FINDINGS: No prior. Heart is enlarged. There is a generalized prominence interstitial pattern suggestive of chronic change. Question superimposed peripheral opacities could represent Covid. No consolidation or pneumothorax or pleural effusion. Please correlate with pulmonary history. *Reading Radiologist: Elkin Saeed on 04/21/2021 at 11:45 AM [facility] ORDERABLES * SARS-COV-2 (COVID-19) ANTIBODY IGG (02/15/2021 1:25 PM CDT) Only the most recent of9 resultswithin the time period is included. CoV2 IGG Negative 02/16/2021 12:18 AM CDT [facility] Blood BLOOD SPECIMEN / Unknown Venipuncture / Unknown 02/15/2021 1:25 PM CDT 02/15/2021 1:32 PM CDT Narrative [facility] - 02/16/2021 12:18 AM CDT This serologic based test was developed by [employer] and its performance characteristics determined by [facility]. This test has not been fully reviewed by the FDA but is being allowed for use per the FDAs' Emergency Use Authorization. Please note the following disclaimers: Negative results do not rule out SARS-CoV-2 infection, particularly in those who have been in contact with the virus. Follow-up testing with a molecular diagnostic should be considered to rule out infection in these individuals. Results from antibody testing should not be used as the sole basis to diagnose or exclude SARS-CoV-2 infection or to inform infection status. False positive results may be due to past or present infection with [id number] coronavirus strains. Rigorous scientific studies have not been completed to determine if detectable IgG to SARS-CoV-2 confers protective immunity. Tiffanie Mcpherson ADVERTISING SALES AGENT-FEEDER/FOLDER LAB - CHEMISTRY ORDERABLES [address] [address], [facility] [phone] * (ABNORMAL) DIFFERENTIAL MANUAL (02/15/2021 1:25 PM CDT) Only the most recent of24 resultswithin the time period is included. WBC (corrected for NRBC) 16.0 10? 3 /uL 02/15/2021 2:38 PM CDT [facility] Total Cell Count 100 02/16/20 21 2:38 PM CDT [facility] Neutrophils Absolute Manual 10.24(H) 1.60 - 7.00 10? 3 /uL 02/15/2021 2:38 PM CDT [facility] Comment:(BANDS+SEGS) x WBC = NEUT # (ANC) Lymphocyte Absolute Manual 5.44(H) 1.10 - 3.90 10? 3 /uL 02/15/2021 2:38 PM CDT [facility] Monocytes Absolute Manual 0.16(L) 0.26 - 1.07 10? 3 /uL 02/15/2021 2:38 PM CDT [facility] Eosinophils Absolute Manual 0.16 0.00 - 0.47 10? 3 /uL 02/15/2021 2:38 PM CDT [facility] Neutrophil % Manual 64 35 - 70 % 02/15/2021 2:38 PM CDT [facility] Lymphocyte % Manual 34 20 - 43 % 02/15/2021 2:38 PM CDT [facility] Monocytes % Manual 1(L) 5 - 13 % 02/15/2021 2:38 PM CDT [facility] Eosinophils % Manual 1 0 - 6 % 02/15/2021 2:38 PM CDT [facility] Platelet Estimate Adequate Adequate 02/15/2021 2:38 PM CDT [facility] Anisocytosis 1+(A) None 02/15/2021 2:38 PM CDT [facility] Blank-[place] Bodies Rare(A) None 02/15/2021 2:38 PM CDT [facility] Target Cells 1+(A) None 02/15/2021 2:38 PM T [facility] Ovalocytes Few(A) None 02/15/2021 2:38 PM T [facility] Blood BLOOD SPECIMEN / Unknown Venipuncture / Unknown 02/15/2021 1:25 PM CDT 02/15/2021 1:35 PM CDT Tiffanie Mcpherson APRN-FEEDER/FOLDER LAB - HEMATOLOG Y ORDERABLES Performing Organization Address [facility]/State/[facility] Co de Phone Number [facility] [address] [place] [address], [facility] [phone] * (ABNORMAL) RBC MORPHOLOGY (11/16/2020 11:20 AM CDT) Only the most recent of15 resultswithin the time period is included. Platelet Estimate Adequate Adequate 11/16/2020 12:20 PM CDT [facility] Anisocytosis 1+(A) None 11/16/2020 12:20 PM CDT [facility] [facility] [place] Bodies 1+(A) None 11/16/2020 12:20 PM CDT [facility] Target Cells 1+(A) None 11/16/2020 12:20 PM CDT [facility] Schistocytes Occasional(A ) None 11/16/2020 12:20 PM CDT [facility] Ovalocytes 1+(A) None 11/16/2020 12:20 PM CDT [facility] Blood BLOOD SPECIMEN / Unknown Venipuncture / Unknown 11/16/2020 11:20 AM CDT 11/16/2020 11:31 AM CDT Tiffanie Mcpherson ADVERTISING SALES AGENT-FEEDER/FOLDER LAB - HEMATOLOG Y ORDERABLES [address] [address], [facility] [phone] * TROPONIN I (09/28/2020 3:02 PM BUSINESS ADMINISTRATION PROGRAM CHAIR) Only the most recent of2 resultswithin the time period is included. Troponin I <0.010 <0.032 ng/mL 09/28/2020 5:24 PM BUSINESS ADMINISTRATION PROGRAM CHAIR [facility] Blood BLOOD SPECIMEN / Unknown Venipuncture / Unknown 09/28/2020 3:02 PM BUSINESS ADMINISTRATION PROGRAM CHAIR 09/28/2020 4:20 PM BUSINESS ADMINISTRATION PROGRAM CHAIR Anrdew Francis MD LAB - CHEMISTRY [place] Performing Organization Address City/[facility]/ZIP Co de Phone Number [address] [address], [place] [phone] * (ABNORMAL) C-REACTIVE PROTEIN (09/28/2020 3:02 PM BUSINESS ADMINISTRATION PROGRAM CHAIR) Only the most recent of22 resultswithin the time period is included. C-Reactive Protein 0.9(H) <=0.5 mg/dL 09/28/2020 6:48 PM BUSINESS ADMINISTRATION PROGRAM CHAIR [facility] Blood BLOOD SPECIMEN / Unknown Venipuncture / Unknown 09/28/2020 3:02 PM BUSINESS ADMINISTRATION PROGRAM CHAIR 09/28/2020 6:48 PM BUSINESS ADMINISTRATION PROGRAM CHAIR Andrew Francis MD LAB - CHEMISTRY [place] [address] [address], [place] [phone] * (ABNORMAL) D-DIMER (09/28/2020 3:02 PM BUSINESS ADMINISTRATION PROGRAM CHAIR) Only the most recent of17 resultswithin the time period is included. [facility] D-Dimer Quantitative 0.67(H) <=0.50 mcg/mL FEU 09/28/2020 4:06 PM BUSINESS ADMINISTRATION PROGRAM CHAIR [facility] Comment: In the absence of clinical symptoms, a value less than or equal to 0.5 mcg/mL FEU significantly decreases the probability of PE/DVT (negative predictive value >95%). 1 mcg/mL FEU = 1 Fibrinogen Equivalent Unit (approximates 0.5 mcg/ml of D- Dimer). ?ISTH DIAGNOSTIC SCORING SYSTEM FOR DIC ?Score ?0 ? 1 ? 2 ?3 ?? Platelet Count(x10^3/uL) ?> 100 ?? < 100 ?? < 50 ?N/A PT Prolongation above ? upper limit of normal ?0-3 ? 3-6 ? > 6 ?N/A range (seconds) ? Fibrinogen (mg/dL) ?> 100 ?? < 100 ?N/A ?N/A D-Dimer (mcg/mL FEU) ? < 0.50 ?N/A ? 0.50-5.0 ??> 5 Calculate Cumulative Score: > or = 5 :compatible with overt DIC ? < 5 :suggestive for non-overt DIC N/A = Non applicable Reference: Br. J. Haematol. 145:24-33,2009. Blood BLOOD SPECIMEN / Unknown Venipuncture / Unknown 09/28/2020 3:02 PM BUSINESS ADMINISTRATION PROGRAM CHAIR 09/28/2020 4:06 PM BUSINESS ADMINISTRATION PROGRAM CHAIR Andrew Francis MD LAB - COAGULATION OR DERABLES [facility] [address] [place] [address], [facility] [phone] * FERRITIN (09/28/2020 3:02 PM BUSINESS ADMINISTRATION PROGRAM CHAIR) Only the most recent of18 resultswithin the time period is included. [facility] Ferritin 93 22 - 275 ng/mL 09/28/2020 7:17 PM BUSINESS ADMINISTRATION PROGRAM CHAIR [facility] Blood BLOOD SPECIMEN / Unknown Venipuncture / Unknown 09/28/2020 3:02 PM BUSINESS ADMINISTRATION PROGRAM CHAIR 09/28/2020 6:48 PM BUSINESS ADMINISTRATION PROGRAM CHAIR Andrew Francis MD LAB - CHEMISTRY ORDE RABLES Performing Organization Address City/[facility]/ZIP Co de Phone Number [address] [address], [facility] [phone] * (ABNORMAL) ERYTHROCYTE SEDIMENTATION RATE (09/28/2020 2:28 PM BUSINESS ADMINISTRATION PROGRAM CHAIR) Only the most recent of17 resultswithin the time period is included. [facility] Erythrocyte Sedimentation Rate Westergren 29(H) 0 - 20 MM/HR 09/28/2020 6:30 PM BUSINESS ADMINISTRATION PROGRAM CHAIR [facility] Blood BLOOD SPECIMEN / Unknown Venipuncture / Unknown 09/28/2020 2:28 PM BUSINESS ADMINISTRATION PROGRAM CHAIR 09/28/2020 6:26 PM BUSINESS ADMINISTRATION PROGRAM CHAIR Andrew Francis MD LAB - HEMATOLOGY ORD ERABLES Performing Organization Address [facility]/ZIP Co de Phone Number [address] [address], [facility] [phone] * B-TYPE NATRIURETIC PEPTIDE (09/28/2020 2:28 PM BUSINESS ADMINISTRATION PROGRAM CHAIR) Only the most recent of3 resultswithin the time period is included. [facility] BNP <10 See Comment pg/mL 09/28/2020 7:55 PM BUSINESS ADMINISTRATION PROGRAM CHAIR [facility] Comment: A decision threshold of 100 pg/mL has been demonstrated to provide the maximal combination of sensitivity, specificity and predictive value for the diagnosis of congestive heart failure (CHF). ??Virtually all patients with no evidence of CHF have BNP values less than 100 pg/mL. A BNP value greater than 100 pg/mL is consistent with the diagnosis of CHF in the appropriate clinical setting. In a study of 693 patients (male and female) with diagnosed CHF, the following values were determined based on the NYHA functional classification system: NYHA Functional Class ?Mean Valule (pg/mL) ? % >100 pg/mL ?I ?320 ? 58.1 ?II ? 432 ? 73.0 ?III ?656 ? 79.0 ?IV ?1635 ? 98.3 ? Blood BLOOD SPECIMEN / Unknown Venipuncture / Unknown 09/28/2020 2:28 PM BUSINESS ADMINISTRATION PROGRAM CHAIR 09/28/2020 6:26 PM BUSINESS ADMINISTRATION PROGRAM CHAIR Andrew Francis MD LAB - CHEMISTRY [place]IA [place] Performing Organization Address [facility]/State/[facility] Co de Phone Number [address] [address], [facility] [phone] * CT CHEST WO CONTRAST (09/28/2020 1:37 PM BUSINESS ADMINISTRATION PROGRAM CHAIR) Anatomical Region Laterality Modality Chest Computed Tomogra phy 09/28/2020 2:01 PM BUSINESS ADMINISTRATION PROGRAM CHAIR Impressions 09/28/2020 2:05 PM BUSINESS ADMINISTRATION PROGRAM CHAIR Impression: Interval development of areas of reticulation, cystic change, and bronchiectasis as detailed above, with some areas of volume loss. The findings suggest postinflammatory fibrosis. This report was electronically signed by YARA MADRIGAL ??on 09/28/2020 2:05 PM . Narrative 09/28/2020 2:05 PM BUSINESS ADMINISTRATION PROGRAM CHAIR Procedure Information DATE: 09/28/2020 1:37 PM EXAMINATION: Computed tomography (CT) of the chest without contrast TECHNIQUE: CT of the chest was performed without contrast according to standard protocol. Clinical Information HISTORY: U07.1: Pneumonia due to COVID-19 virus J12.82: Pneumonia due to COVID-19 virus COMPARISON: CT from 03/02/2020 Findings Evaluation of visceral and vascular structures is degraded due to lack of intravenous contrast administration. Lines/Tubes: None. Lower neck and axillae: Normal. Mediastinum and Mary: No enlarged lymph nodes are present. Heart and Pericardium: The cardiac chambers are normal in size. No pericardial fluid or thickening is present. Lung Parenchyma, Airways, and Pleural Spaces: There has been interval development of mixed reticulation and cystic change in the anterior segment of the left upper lobe extending to the lingula, with some intermixed areas of bronchiectasis, particularly in the lingula. There is associated mild to moderate left upper lobe volume loss. Patchy reticulation has developed in the lateral aspect of the right lung apex, extending along the peripheral aspect of the midportion of the right upper lobe toward the caudal portion of the right upper lobe, where there is volume loss. There is new mild bronchiectasis in the right middle lobe with some distal reticulation. More subtle areas of reticulation are seen within the lower lobes bilaterally. There is no pleural effusion or pneumothorax. Bones and Soft Tissue: The visible osseous structures are intact. Upper Abdomen: The visible upper abdominal viscera are unremarkable. Procedure Note Yara Madrigal MD - 09/28/2020 Procedure Information DATE: 09/28/2020 1:37 PM EXAMINATION: Computed tomography (CT) of the chest without contrast TECHNIQUE: CT of the chest was performed without contrast according to standard protocol. Clinical Information HISTORY: U07.1: Pneumonia due to COVID-19 virus J12.82: Pneumonia due to COVID-19 virus COMPARISON: CT from 03/02/2020 Findings Evaluation of visceral and vascular structures is degraded due to lackof intravenous contrast administration. Lines/Tubes: None. Lower neck and axillae: Normal. Mediastinum and Mary: No enlarged lymph nodes are present. Heart and Pericardium: The cardiac chambers are normal in size. No pericardial fluid or thickening is present. Lung Parenchyma, Airways, and Pleural Spaces: There has been interval development of mixed reticulation and cystic change in the anterior segment of the left upper lobe extending to the lingula, with some intermixed areas of bronchiectasis, particularly inthe lingula. There is associated mild to moderate left upper lobe volumeloss. Patchy reticulation has developed in the lateral aspect of the rightlung apex, extending along the peripheral aspect of the midportion of theright upper lobe toward the caudal portion of the right upper lobe, wherethere is volume loss. There is new mild bronchiectasis in the right middlelobe with some distal reticulation. More subtle areas of reticulation areseen within the lower lobes bilaterally. There is no pleural effusion or pneumothorax. Bones and Soft Tissue: The visible osseous structures are intact. Upper Abdomen: The visible upper abdominal viscera are unremarkable. Impression: Interval development of areas of reticulation, cystic change, and bronchiectasis as detailed above, with some areas of volume loss. The findings suggest postinflammatory fibrosis. This report was electronically signed by YARA MADRIGAL on 09/28/2020 2:05 PM . Hillary Apple MD CT ORDERABLES * ACTH 60 MINUTES (07/14/2020 12:04 PM BUSINESS ADMINISTRATION PROGRAM CHAIR) Cortisol 60 Min 23.6 >=20.0 mcg/dL 07/14/2020 1:00 PM BUSINESS ADMINISTRATION PROGRAM CHAIR [facility] Blood BLOOD SPECIMEN / Unknown Venipuncture / Unknown 07/14/2020 12:04 PM BUSINESS ADMINISTRATION PROGRAM CHAIR 07/14/2020 12:16 PM BUSINESS ADMINISTRATION PROGRAM CHAIR Tiffanie Mcpherson ADVERTISING SALES AGENT-FEEDER/FOLDER LAB - CHEMISTRY ORDERABLES [facility] [address] [place] [address], [facility] [phone] * ACTH CORTISOL BASELINE (07/14/2020 10:44 AM BUSINESS ADMINISTRATION PROGRAM CHAIR) Cortisol Baseline 13.4 No Reference Range Established mcg/dL 07/14/2020 11:50 AM BUSINESS ADMINISTRATION PROGRAM CHAIR [facility] Blood BLOOD SPECIMEN / Unknown Venipuncture / Unknown 07/14/2020 10:44 AM BUSINESS ADMINISTRATION PROGRAM CHAIR 07/14/2020 11:07 AM BUSINESS ADMINISTRATION PROGRAM CHAIR Tiffanie Mcpherson [facility] LAB - CHEMISTRY ORDERABLES Performing Organization Address City/[facility]/ZIP Co de Phone Number [address] [address], [facility] [phone] * (ABNORMAL) TRANSFERRIN (07/14/2020 10:44 AM BUSINESS ADMINISTRATION PROGRAM CHAIR) Only the most recent of2 resultswithin the time period is included. Transferrin 196 174 - 382 mg/dL 07/14/2020 12:05 PM [facility] Transferrin Saturation % 8(L) 16 - 50 % 07/14/2020 12:05 PM [facility] Blood BLOOD SPECIMEN / Unknown Venipuncture / Unknown 07/14/2020 10:44 AM BUSINESS ADMINISTRATION PROGRAM CHAIR 07/14/2020 11:27 AM BUSINESS ADMINISTRATION PROGRAM CHAIR Tiffanie Seymour [facility] LAB - CHEMISTRY ORDERABLES Performing Organization Address [facility] Co de Phone Number [address] [address], [facility] [phone] * VITAMIN D 1,25 DIHYDROXY (07/14/2020 10:44 AM BUSINESS ADMINISTRATION PROGRAM CHAIR) Vitamin D, 1,25 Dihydroxy 43.1 19.9 - 79.3 pg/mL 07/16/2020 12:26 AM BUSINESS ADMINISTRATION PROGRAM CHAIR [employer] ([facility]) Comment: INTERPRETIVE INFORMATION: Vitamin D, 1,25-Dihydroxy This test is primarily indicated during patient evaluation for hypercalcemia and renal failure. A normal result does not rule out Vitamin D deficiency. The recommended test for diagnosing Vitamin D deficiency is Vitamin D 25-hydroxy. Performed By: [employer] [address] [place] [id number] Patrol Guard: Clare Linda MD Blood BLOOD SPECIMEN / Unknown Venipuncture / Unknown 07/14/2020 10:44 AM BUSINESS ADMINISTRATION PROGRAM CHAIR 07/14/2020 11:27 AM BUSINESS ADMINISTRATION PROGRAM CHAIR Tiffanie Mcpherson [facility] LAB - CHEMISTRY ORDERABLES [facility] ([facility]) [address] [place] [address] * RETIC COUNT (07/14/2020 10:44 AM BUSINESS ADMINISTRATION PROGRAM CHAIR) Only the most recent of2 resultswithin the time period is included. Reticulocyte % 1.1 0.4 - 2.5 % 07/14/2020 11:17 AM BUSINESS ADMINISTRATION PROGRAM CHAIR [facility] Reticulocyte Absolute 0.05 0.02 - 0.13 10? 6 /uL 07/14/2020 11:17 AM BUSINESS ADMINISTRATION PROGRAM CHAIR [facility] Blood BLOOD SPECIMEN / Unknown Venipuncture / Unknown 07/14/2020 10:44 AM BUSINESS ADMINISTRATION PROGRAM CHAIR 07/14/2020 11:07 AM BUSINESS ADMINISTRATION PROGRAM CHAIR Tiffanie Mcpherson [facility] LAB - HEMATOLOG Y ORDERABLES [address] [address], [facility] [phone] * FOLATE (07/14/2020 10:44 AM BUSINESS ADMINISTRATION PROGRAM CHAIR) Folate 13.6 7.0 - 31.4 ng/mL 07/14/2020 12:05 PM BUSINESS ADMINISTRATION PROGRAM CHAIR [facility] Blood BLOOD SPECIMEN / Unknown Venipuncture / Unknown 07/14/2020 10:44 AM BUSINESS ADMINISTRATION PROGRAM CHAIR 07/14/2020 11:07 AM BUSINESS ADMINISTRATION PROGRAM CHAIR Tiffanie Mcpherson [facility] LAB - CHEMISTRY ORDERABLES [address] [address], [facility] [phone] * VITAMIN B12 (07/14/2020 10:44 AM BUSINESS ADMINISTRATION PROGRAM CHAIR) Vitamin B12 544 213 - 816 pg/mL 07/14/2020 12:05 PM BUSINESS ADMINISTRATION PROGRAM CHAIR [facility] Blood BLOOD SPECIMEN / Unknown Venipuncture / Unknown 07/14/2020 10:44 AM BUSINESS ADMINISTRATION PROGRAM CHAIR 07/14/2020 11:07 AM BUSINESS ADMINISTRATION PROGRAM CHAIR Tiffanie Mcpherson [facility] LAB - CHEMISTRY ORDERABLES Performing Organization Address City/[facility]/ZIP Co de Phone Number [address] [address], [place] [phone] * (ABNORMAL) HAPTOGLOBIN (07/14/2020 10:44 AM BUSINESS ADMINISTRATION PROGRAM CHAIR) Haptoglobin >500(H) 14 - 258 mg/dL 07/14/2020 12:13 PM BUSINESS ADMINISTRATION PROGRAM CHAIR [facility] Blood BLOOD SPECIMEN / Unknown Venipuncture / Unknown 07/14/2020 10:44 AM BUSINESS ADMINISTRATION PROGRAM CHAIR 07/14/2020 11:27 AM BUSINESS ADMINISTRATION PROGRAM CHAIR Tiffanie Mcpherson [facility] LAB - CHEMISTRY ORDERABLES Performing Organization Address [facility] Co de Phone Number [address] [address], [place] [phone] * (ABNORMAL) LDH BLOOD (06/16/2020 11:25 AM BUSINESS ADMINISTRATION PROGRAM CHAIR) Only the most recent of20 resultswithin the time period is included. Pathologist [facility] LDH Total 345(H) 125 - 243 Units/L 06/16/2020 12:11 PM BUSINESS ADMINISTRATION PROGRAM CHAIR [facility] Blood BLOOD SPECIMEN / Unknown Venipuncture / Unknown 06/16/2020 11:25 AM BUSINESS ADMINISTRATION PROGRAM CHAIR 06/16/2020 11:42 AM BUSINESS ADMINISTRATION PROGRAM CHAIR Tiffanie Mcpherson [facility] LAB - CHEMISTRY ORDERABLES Performing Organization Address [facility]/ZIP Co de Phone Number [address] [address], [place] [phone] * LAB RESULTS ORDER (05/18/2020 1:52 PM CDT) Narrative 05/18/2020 1:52 PM CDT Ordered by an unspecified provider. Scanned Document LAB - THERAPEUTIC DR UG MONITORING ORDERABLES * CULTURE BLOOD (03/24/2020 1:24 PM CDT) Only the most recent of18 resultswithin the time period is included. Culture No growth day 5 SPENCER 03/29/2020 4:30 PM CDT [facility] Blood PERIPHERAL BLOOD / Unknown Lab Venipuncture / Unknown 03/24/2020 1:24 PM CDT 03/24/2020 1:31 PM CDT Asim Heredia James ADVERTISING SALES AGENT-FEEDER/FOLDER LAB - MICROBIOLO GY ORDERABLES [facility] [address] [place] [address], [facility] [phone] * XR CHEST 1VW PORTABLE (03/20/2020 4:51 PM CDT) Only the most recent of7 resultswithin the time period is included. Anatomical Region Laterality Modality Chest Radiographic Chayito ging 03/21/2020 11:4 9 AM CDT Impressions 03/22/2020 9:32 AM CDT FINDINGS/IMPRESSION: Bilateral interstitial and airspace opacities are mildly improved. No new areas of airspace consolidation observed. There is suggestion of small bilateral pleural effusions with adjacent atelectasis or airspace disease. The cardiomediastinal silhouette is within normal limits. No acute osseous abnormality. Report dictated by Adrián Vides MD (regional vice president life sales). I, Dr. YARA MADRIGAL have personally reviewed and interpreted this examination/study. This report was electronically signed by YARA MADRIGAL ??on 03/22/2020 9:32 AM . Narrative 03/22/2020 9:32 AM CDT EXAMINATION: XR CHEST 1VW PORTABLE, 03/20/2020 4:52 PM HISTORY: U07.1: Pneumonia due to COVID-19 virus J12.89: Pneumonia due to COVID-19 virus COMPARISON: Chest radiograph 03/10/2020 Procedure Note Yara Madrigal MD - 03/22/2020 EXAMINATION: XR CHEST 1VW PORTABLE, 03/20/2020 4:52 PM HISTORY: U07.1: Pneumonia due to COVID-19 virus J12.89: Pneumonia due to COVID-19 virus COMPARISON: Chest radiograph 03/10/2020 FINDINGS/IMPRESSION: Bilateral interstitial and airspace opacities are mildly improved. Nonew areas of airspace consolidation observed. There is suggestion of small bilateral pleural effusions with adjacent atelectasis or airspacedisease. The cardiomediastinal silhouette is within normal limits. No acuteosseous abnormality. Report dictated by Adrián Vides MD (regional vice president life sales). I, Dr. YARA MADRIGAL have personally reviewed and interpreted this examination/study. This report was electronically signed by YARA MADRIGAL on 03/22/2020 9:32 AM . Keli Evie ADVERTISING SALES AGENT-FEEDER/FOLDER DIAGNOSTIC IMAGIN G ORDERABLES * TRANSFUSE CONVALESCENT COVID-19 PLASMA UNIT (03/10/2020 6:22 PM CDT) Kalpesh Robison MD NURSING - BLOOD PROD TRANSFUSION * BLOOD TYPE ABO+ RH PANEL (03/10/2020 1:25 PM CDT) ABO Rh A POS 03/10/2020 2:1 3 PM CDT [facility] Blood BLOOD SPECIMEN / Unknown Venipuncture / Unknown 03/10/2020 1:25 PM CDT 03/10/2020 1:36 PM CDT Kalpesh Robison MD LAB - BLOOD BANK ORD ERABLES [facility] [address] [place] [phone], [facility] * 1 Units (03/10/2020 1:00 PM CDT) Unit Description COVID 19 CP [facility] Unit ABO A [facility] Unit Rh POS [facility] Product Number [id number] [facility] B LOOD BANK LAB Unit Donor # [id number] [facility] Unit Status released [facility] BLOO D BANK LAB Product Code [id number] [facility] BLO OD [facility]ANK LAB Blood Type Barcode 6200 [facility] Expiration Date [id number] S BLOOD BANK LAB Unit Description Thawed CCP 5D [facility] Unit ABO A [facility] Unit Rh POS [facility] Product Number [id number] [facility] B LOOD BANK LAB Unit Donor # [id number] [facility] BLO[facility] LAB Unit Status transfused [facility] BLO OD BANK LAB Product Code [id number] [facility] BLO OD BANK LAB Blood Type Barcode 6200 [facility] B[facility] LAB Expiration Date [id number] S BLOOD BANK LAB Blood Bank BLOOD SPECIMEN / Unknown 03/10/2020 1:00 PM CDT Kalpesh Robison MD LAB - BLOOD BANK ORD ERABLES Performing Organization Address City/[facility]/ZIP Co de Phone Number [facility] [address] [place] [address] * CULTURE URINE (03/08/2020 11:19 PM CDT) Only the most recent of3 resultswithin the time period is included. Pathologist [facility] Culture Urine No growth (<100 CFU/mL) SPENCER 03/10/2020 6:14 AM CDT [facility] Urine URINE SPECIMEN OBTAINED BY CLEAN CATCH PROCEDURE / Unknown Collection / Unknown 03/08/2020 11:19 PM CDT 03/08/2020 11:22 PM CDT Joe Dennison MD LAB - MICROBIOLOGY O RDERABLES Performing Organization Address City/[facility]/ZIP Co de Phone Number [facility] [address] [phone] * (ABNORMAL) BASIC METABOLIC PANEL (CALCIUM TOTAL) (03/08/2020 9:40 PM CDT) BUN 19 7 - 26 mg/dL 03/08/2020 10:04 PM CDT [facility] Creatinine 0.9 0.6 - 1.2 mg/dL 03/08/2020 10:04 PM CDT [facility] Sodium 141 136 - 145 mmol/L 03/08/2020 10:04 PM CDT [facility] Potassium 3.6 3.5 - 4.5 mmol/L 03/08/2020 10:04 PM CDT [facility] Chloride 103 98 - 107 mmol/L 03/08/2020 10:04 PM CDT [facility] CO2 24 22 - 29 mmol/L 03/08/2020 10:04 PM [facility] Glucose 87 70 - 115 mg/dL 03/08/2020 10:04 PM [facility] Calcium 7.7(L) 8.4 - 10.2 mg/dL 03/08/2020 10:04 PM [facility] Anion Gap 18 8 - 18 03/08/2020 10:04 PM [facility] BUN/Creatinine Ratio 21 7 - 23 03/08/2020 10:04 PM [facility] Osmolality Calculated 294 270 - 300 mOsm/kg 03/08/2020 10:04 PM [facility] eGFR >60 >60 mL/min/1.7 3 m2 03/08/2020 10:04 PM [facility] Blood BLOOD SPECIMEN / Unknown Venipuncture / Unknown 03/08/2020 9:40 PM CDT 03/08/2020 9:44 PM T Kenneth Martins MD LAB - CHEMISTRY CIN[place] [facility] Organization Address City/State/ZIP Co de Phone Number [address] [address] [phone] * (ABNORMAL) URINALYSIS REFLEX TO MICROSCOPIC NO CULTURE (03/08/2020 7:08 PM CDT) Only the most recent of3 resultswithin the time period is included. Color UA Yellow Straw, Yellow, Colorless 03/08/2020 7:49 PM [facility] Clarity UA Clear Clear, Slt Cloudy 03/08/2020 7:49 PM [facility] Specific [place] UA 1.012 1.005 - 1.030 03/08/2020 7:49 PM [facility] pH UA 7.0 5.0 - 8.0 pH 03/08/2020 7:49 PM [facility] Protein UA 1+(A) Negative mg/dL 03/08/2020 7:49 PM [facility] Glucose UA Negative Negative mg/dL 03/08/2020 7:49 PM [facility] Ketone UA Trace(A) Negative mg/dL 03/08/2020 7:49 PM [facility] Bilirubin UA Negative Negative mg/dL 03/08/2020 7:49 PM [facility] Blood UA 1+(A) Negative 03/08/2020 7:49 PM [facility] Nitrite UA Negative Negative 03/08/2020 7:49 PM [facility] Leukocyte Esterase Negative Negative 03/08/2020 7:49 PM [facility] Urobilinogen UA Negative Negative mg/dL 03/08/2020 7:49 PM [facility] RBC UA 0-2 None Seen, 0-2, 3-5 /HPF 03/08/2020 7:49 PM [facility] WBC UA 0-5 None Seen, 0-5 /HPF 03/08/2020 7:49 PM [facility] Bacteria UA Trace None, Trace /HPF 03/08/2020 7:49 PM [facility] Squamous Epithelial Cells UA None Seen None Seen, 0-2 /HPF 03/08/2020 7:49 PM [facility] Mucus UA 1+ None, 1+ /LPF 03/08/2020 7:49 PM [facility] Urine URINE SPECIMEN OBTAINED BY CLEAN CATCH PROCEDURE / Unknown Collection / Unknown 03/08/2020 7:08 PM CDT 03/08/2020 7:15 PM CDT Narrative [facility] - 03/08/2020 7:49 PM CDT Joe Dennison MD LAB - URINALYSIS ORD ERABLES [address] [address] [phone] * (ABNORMAL) VANCOMYCIN LEVEL TROUGH (03/08/2020 8:07 AM CDT) Only the most recent of6 resultswithin the time period is included. Vancomycin Trough 24.4(H) 10.0 - 20.0 mcg/mL 03/08/2020 8:53 AM [facility] Blood BLOOD SPECIMEN / Unknown Venipuncture / Unknown 03/08/2020 8:07 AM CDT 03/08/2020 8:20 AM CDT oJe Dennison MD LAB - CHEMISTRY CINTHIA [place] [address] [address], [facility] [phone] * XR ABDOMEN KUB PORTABLE (03/07/2020 12:35 AM CDT) Anatomical Region Laterality Modality Abdomen Radiographic Chayito ging 03/07/2020 1:22 PM CDT Impressions 03/08/2020 10:39 AM CDT FINDINGS/IMPRESSION: An enteric tube terminates below the diaphragm with tip out of the field of view and the side port at the level of proximal duodenum. There is consolidation the lower lobes of both lungs. Dictated by Logan Shi MD (regional vice president life sales). I, Dr. BOGDAN RUBIO have personally reviewed and interpreted this examination/study. This report was electronically signed by BOGDAN RUBIO ??on 03/08/2020 10:39 AM . Narrative 03/08/2020 10:39 AM CDT EXAMINATION: XR ABDOMEN KUB PORTABLE HISTORY: Z46.59: Encounter for orogastric (OG) tube placement COMPARISON: Same day abdominal radiograph. Procedure Note Bogdan Rubio MD - 03/08/2020 EXAMINATION: XR ABDOMEN KUB PORTABLE HISTORY: Z46.59: Encounter for orogastric (OG) tube placement COMPARISON: Same day abdominal radiograph. FINDINGS/IMPRESSION: An enteric tube terminates below the diaphragm with tip out of the field of view and the side port at the level of proximal duodenum. There is consolidation the lower lobes of both lungs. Dictated by Logan Shi MD (regional vice president life sales). I, Dr. BOGDAN RUBIO have personally reviewed and interpreted this examination/study. This report was electronically signed by BOGDAN RUBIO on 03/08/2020 10:39AM . Bertin Rush DO DIAGNOSTIC IMAGING O RDERABLES * XR ABDOMEN KUB (03/06/2020 10:25 PM CDT) Anatomical Region Laterality Modality Abdomen Radiographic Chayito ging 03/07/2020 10:2 5 AM CDT Impressions 03/08/2020 10:38 AM CDT FINDINGS/IMPRESSION: An enteric tube terminates in the proximal stomach with side port in the distal esophagus; advancement into the stomach is recommended. Dictated by Logan Shi MD (regional vice president life sales). I, Dr. BOGDAN RUBIO have personally reviewed and interpreted this examination/study. This report was electronically signed by BOGDAN RUBIO ??on 03/08/2020 10:38 AM . Narrative 03/08/2020 10:38 AM CDT EXAMINATION: XR ABDOMEN KUB HISTORY: R50.9: Fever, unspecified fever cause COMPARISON: No prior study is available for comparison at the time of this dictation. Procedure Note Bogdan Rubio MD - 03/08/2020 EXAMINATION: XR ABDOMEN KUB HISTORY: R50.9: Fever, unspecified fever cause COMPARISON: No prior study is available for comparison at the time ofthis dictation. FINDINGS/IMPRESSION: An enteric tube terminates in the proximal stomach with side port in the distal esophagus; advancement into the stomach is recommended. Dictated by Logan Shi MD (regional vice president life sales). IDr. BOGDAN have personally reviewed and interpreted this examination/study. This report was electronically signed by BOGDAN RUBIO on 03/08/2020 10:38AM . Joe Dennison MD DIAGNOSTIC IMAGING O RDERABLES * (ABNORMAL) BLOOD GASES ARTERIAL (03/06/2020 9:21 PM CDT) Only the most recent of2 resultswithin the time period is included. pH Arterial 7.42 7.35 - 7.45 03/06/2020 9:28 PM [facility] pCO2 Arterial 41 35 - 45 mmHg 03/06/2020 9:28 PM [facility] pO2 Arterial 144(H) 77 - 101 mmHg 03/06/2020 9:28 PM [facility] HCO3 Arterial 26.1(H) 22.0 - 26.0 mmol/L 03/06/2020 9:28 PM [facility] TCO2 Arterial 27.3 25.0 - 29.0 mmol/L 03/06/2020 9:28 PM [facility] Base Excess Arterial 1.5 -2.0 - 2.0 mmol/L 03/06/2020 9:28 PM CDT [facility] Hemoglobin Arterial 8.7(L) 13.5 - 17.5 g/dL 03/06/2020 9:28 PM CDT [facility] Oxyhemoglobin Arterial 97.3 95.0 - 100.0 % 03/06/2020 9:28 PM CDT [facility] Carboxyhemoglobin 0.3 0.0 - 3.0 % 03/06/2020 9:28 PM T [facility] Methemoglobin 0.3 0.0 - 2.0 % 03/06/2020 9:28 PM T [facility] FI O2 Arterial 60.0 % 03/06/2020 9:28 PM T [facility] Blood, arterial ARTERIAL BLOOD SPECIMEN / Unknown Arterial Puncture / Unknown 03/06/2020 9:21 PM CDT 03/06/2020 9:25 PM CDT Bertin Rush DO LAB - BLOOD GASES OR DERABLES [address] [address], [facility] [phone] * PTT [facility] (03/06/2020 6:16 PM CDT) Only the most recent of3 resultswithin the time period is included. APTT 26.0 23.0 - 38.4 Seconds 03/06/2020 6:43 PM CDT [facility] Comment:Suggested therapeuti c range for full dose I.V. unfractionated heparin therapy for venous thromboembolism is 71 to 109 seconds. Blood BLOOD SPECIMEN / Unknown Venipuncture / Unknown 03/06/2020 6:16 PM CDT 03/06/2020 6:30 PM CDT Joe Dennison MD LAB - COAGULATION OR DERABLES [address] [address], [facility] [phone] * PT-INR [facility] (03/06/2020 6:16 PM CDT) Only the most recent of4 resultswithin the time period is included. PT 14.7 12.1 - 14.8 Seconds 03/06/2020 6:42 PM CDT [facility] INR 1.2 See Comment 03/06/2020 6:42 PM CDT [facility] Comment:The suggested therap eutic range for standard coumadin (warfarin) therapy is an INR of 2.0-3.0. For high-risk patients (Mechanical Mitral Valve Prosthesis, etc.), the suggested prophylactic therapeutic range is an INR of 2.5-3.5. Blood BLOOD SPECIMEN / Unknown Venipuncture / Unknown 03/06/2020 6:16 PM CDT 03/06/2020 6:30 PM CDT Joe Dennison MD LAB - COAGULATION OR DERABLES Performing Organization Address [facility]/State/[facility] de Phone Number [address] [address], [facility] [phone] * PATHOLOGY TISSUE (03/06/2020 3:46 PM CDT) Only the most recent of2 resultswithin the time period is included. Case Report Surgical Pathology Report ? Case: [id number] ? Authorizing Provider: ??Elkin Rosenbaum MD ? Collected: ? 03/06/2020 03:46 PM ? Ordering Location: ? [facility] ? Received: ?03/07/2020 08:15 AM ? Pathologist: ? Alecia Abel MD ? Specimen: ?Lung, Right Middle Lobe, transbronchial lung biopsy RML ? 03/09/2020 3:[address] [facility] Final Diagnosis Lung, right middle lobe, transbronchial biopsy: - Reactive alveolar parenchyma with mild chronic inflammation 03/09/2020 3:[address] [facility] Microscopic Description and Comment Microscopic examination of the biopsy shows scattered prominent nucleoli but no definitive viral cytopathologic effect is noted. CMV PCR is noted to be negative as well as other serologic tests. An immunostain for TTF-1 highlights a normal distribution of non-atypical pneumocytes. Ki-67 highlights scattered inflammatory cells and some reactive pneumocytes. GMS, AFB and Farhad special stains are negative for micro-organisms. 03/09/2020 3:[address] 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 Recent SARS-CoV-2 positive in the beginning of January as a routine check up. Patient was admitted to the hospital on 02/24 with complaints of low grade fevers, moderate to severe headache, photophobia, and neck pain for 2 weeks. LP on 03/[address] scan (03/02/2020): Altered distribution of prominent geographic groundglass opacities within the upper and lower lung zones bilaterally. This suggests ongoing inflammatory or infectious process, rather than discrete areas of progressive fibrosis. Procedure: Transbronchial lung biopsy 03/09/2020 3:[address] [facility] Gross Description The requisition and specimen(s) are labeled with the patient's name, Marcello Guillen. Received in formalin, specimen A , are 3 castillo-white tissue fragment 0.1 cm in greatest dimension, with an aggregate measurement of 0.6 x 0.1 x 0.1 cm. Specimen is submitted in toto in cassette A1. KK 03/09/2020 3:06 PM CDT [facility] Disclaimer The performance characteristics of all immunohistochemical and indirect immunofluorescence stains (if any) cited in this report were determined by the Histopathology Laboratory of [facility]. Some of these tests were developed by our own laboratory and have not been cleared or approved by the US Food and Drug Administration. The FDA does not require this test to go through premarket FDA review. These tests are used for clinical purposes. They should not be regarded as investigational or for research. This laboratory is certified under the Clinical Laboratory Improvement Amendments (CLIA) as qualified to perform high complexity clinical laboratory testing. This case has been personally reviewed and interpreted by the attending (teaching) pathologist. 03/09/2020 3:06 PM CDT [facility] Embedded Images 03/09/2020 3:06 PM CDT [facility] Biopsy, Excision (Lung, Right Middle Lobe) 03/06/2020 3:46 PM CDT 03/07/2020 8:15 AM CDT Comment:Pre-op diagnosis: Abnormal CXR [R93.89] Elkin Rosenbaum MD LAB - PATHOLOGY/CYTO LOGY ORDERABLES [facility] [address] [phone] * FLOW CYTOMETRY BODY FLUID (03/06/2020 3:41 PM CDT) Only the most recent of2 resultswithin the time period is included. Case Report Flow Cytometry ?Case: [id number] ? Authorizing Provider: ??Elkin Rosenbaum MD ? Collected: ? 03/06/2020 03:41 PM ? Ordering Location: ? [facility] ? Received: ?03/06/2020 04:11 PM ? Pathologist: ? Margaret Hooker Mai, DO ? Specimen: ?Body Fluid ? 03/07/2020 10:[address] [facility] Final Diagnosis Body fluid, RML, flow cytometric immunophenotypic analysis: - Insufficient hematopoietic cells for analysis. - See interpretation. 03/07/2020 10:[address] [facility] Flow Cytometry Interpretation Preliminary characterization of the body fluid, RML, specimen demonstrates too few hematopoietic cells for flow cytometric analysis. A cytospin prepared from the flow cytometry specimen is reviewed for quality review trainer purposes. Flow cytometry is not performed. 03/07/2020 10:[address] [facility] Flow Cytometry Results Too few hematopoetic cells for flow cytometric analysis. 03/07/2020 10:[address] [facility] Client Specimen ID # [id number] 03/07/2020 10:[address] [facility] Reason for test Fever, unspecified fever cause 03/07/2020 10:[address] [facility] Disclaimer Test performed at [facility], [address] [place] [address], [id number]. *The established laboratory minimum viability is 70%. Values below the minimum may result in the failure to find an abnormal population of cells. This test was developed and its performance characteristics determined by the Flow Cytometry Laboratory. It has not been cleared by the [place] Food and Drug Administration (FDA). The FDA has determined that such clearance or approval is not necessary. This test is used for clinical purposes. It should not be regarded as investigational or for research. This laboratory is regulated under the Clinical Laboratory Improvement Amendments of 1998 (CLIA) as a qualified to perform high complexity clinical testing. 03/07/2020 10:38 AM CDT [facility] Embedded Images 0 10:38 AM CDT [facility] Fluid BODY FLUID SPECIMEN / Unknown Collection / Unknown 03/06/2020 3:41 PM CDT 03/06/2020 4:11 PM CDT Comment:RML Elkin Rosenbaum MD LAB - PATHOLOGY/CYTO LOGY ORDERABLES Performing Organization Address [facility]/ZIP Co de Phone Number [facility] [address] [place], [place] [address] [phone] * (ABNORMAL) CELL COUNT W DIFFERENTIAL FLUID (03/06/2020 3:41 PM CDT) Color Fluid Willis(A) Colorles s, Straw 03/06/2020 5:01 PM CDT [facility] Clarity Fluid Clear Clear 03/06/2020 5:01 PM CDT [facility] Volume Fluid 5.0 mL 03/06/2020 5:01 PM CDT [facility] WBC Calculation Fluid 48 /uL 03/06/2020 5:01 PM CDT [facility] RBC Calculation 2,010 /uL 0 5:01 PM CDT [facility] Differential Manual Differential to follow. 03/06/2020 5:01 PM CDT [facility] Fluid BRONCHIOLOALVEOLAR LAVAGE / Unknown Collection / Unknown 03/06/2020 3:41 PM CDT 03/06/2020 3:53 PM CDT Narrative [facility] - 03/06/2020 5:01 PM CDT No reference ranges established for body fluid cell counts. The reference ranges provided are derived from published literature. The test results must be integrated into the clinical context for interpretation. Elkin Rosenbaum MD LAB - BODY FLUID ORD ERABLES Performing Organization Address [facility]/ZIP Co de Phone Number [facility] [address] [place] [phone], [facility] [phone] * CYTOLOGY NON-DIRECTOR MEDICAL SCIENCE PANEL (STL) (03/06/2020 3:41 PM CDT) Case Report Medical Cytology Report ? Case: [id number] ? Authorizing Provider: ??Elkin Rosenbaum MD ? Collected: ? 03/06/2020 03:41 PM ? Ordering Location: ? [facility] ? Received: ?03/07/2020 07:01 AM ? Pathologist: ? Nick Gutierrez MD ? Specimen: ?Bronch Alveolar Lav, RML ? 03/08/2020 2:56 PM CDT [facility] Specimen Adequacy Adequate cellularity for evaluation. 03/08/2020 2:56 PM CDT [facility] Final Diagnosis Bronchial alveolar lavage, cytology: - Negative for malignancy - Macrophages, bronchial cells, and mucin - GMS stain is negative for fungal elements 03/08/2020 2:56 PM CDT [facility] Clinical History Fever, unspecified fever cause 03/08/2020 2:56 PM CDT [facility] Gross Description 1 pap stained cytospin slide and 1 cell block from 30cc collection fluid. 03/08/2020 2:56 PM CDT [facility] Microscopic Description Performed. 03/08/2020 2:56 PM CDT [facility] Disclaimer The performance characteristics of all immunohistochemical and indirect immunofluorescence stains (if any) cited in this report were determined by the Histopathology Laboratory of [facility]. Some of these tests rely on the use of analyte-specific reagents and are subject to specific labeling requirements by the US Food and Drug Administration. Such tests were developed by the Histology Laboratory of [facility] and have not been cleared or approved by the FDA. The FDA has determined that such clearance and approval is not necessary. These tests are used for clinical purposes and should not be regarded as investigational or for research. This laboratory is certified under the Clinical Laboratory Improvement Amendments (CLIA) as qualified to perform high complexity clinical laboratory testing. This case has been personally reviewed and interpreted by the attending (teaching) pathologist. 03/08/2020 2:56 PM CDT [facility] Embedded Images 03/08/2020 2:56 PM CDT [facility] Pathology/Cytol ogy BRONCHIOLOALVEOLAR LAVAGE / Unknown Collection / Unknown 03/06/2020 3:41 PM CDT 03/07/2020 7:01 AM CDT Elkin Rosenbaum MD LAB - PATHOLOGY/CYTO LOGY ORDERABLES Performing Organization Address [facility]/State/[facility] Co de Phone Number [facility] [address] [phone] * DIFFERENTIAL MANUAL FLUID (03/06/2020 3:41 PM CDT) Only the most recent of2 resultswithin the time period is included. Band Relative % Fluid 3 % 03/06/2020 5:36 PM CDT [facility] Segs % Fluid 64 % 03/06/2020 5:36 PM CDT [facility] Lymphocytes % Fluid 11 % 03/06/2020 5:36 PM CDT [facility] Monocytes % Fluid 16 % 03/06/2020 5:36 PM CDT [facility] Macrophages % Fluid 3 % 03/06/2020 5:36 PM CDT [facility] Atypical Lymphs % Fluid 3 % 03/06/2020 5:36 PM CDT [facility] Fluid BRONCHIOLOALVEOLAR LAVAGE / Unknown Collection / Unknown 03/06/2020 3:41 PM CDT 03/06/2020 3:53 PM CDT Elkin Rosenbaum MD LAB - BODY FLUID ORD ERABLES [id number] [place] [address], [facility] [phone] * LAB MISC TEST (03/06/2020 3:41 PM CDT) Test Name Coronavirus (COVID-19) SARS-CoV-2 PCR 05/02/2020 10:42 AM CDT [facility] [employer] Test Result See Scanned Report 05/02/2020 10:42 AM CDT [facility] [employer] Blood MISCELLANEOUS SAMPLES / Unknown Venipuncture / Unknown 03/06/2020 3:41 PM CDT 03/07/2020 8:23 AM CDT Joce Damian DO LAB SEND OUT Performing Organization Address City/[facility]/ZIP Co de Phone Number [facility] [employer] [address] [place] [address] * CULTURE FUNGUS OTHER+FUNGUS SMEAR (03/06/2020 3:37 PM CDT) Culture No fungus isolated SPENCER 04/03/2020 12:08 PM CDT [facility] Fungus Stain No yeast or hyphae seen 04/03/2020 12:08 PM CDT [facility] Fungus Stain No Pneumocystis jirovecii 04/03/2020 12:08 PM CDT [facility] Microbiology BRONCHIOLOALVEOLAR LAVAGE / Unknown Collection / Unknown 03/06/2020 3:37 PM CDT 03/06/2020 4:10 PM CDT Elkin Rosenbaum MD LAB - MICROBIOLOGY O RDERABLES [facility] [address] [place] [address], [facility] [phone] * FUNGAL PLUS PCR PROFILE II (03/06/2020 3:36 PM CDT) See Scanned Document See Scanned Report 03/08/2020 9:45 AM CDT [facility] NON INTERF Microbiology BRONCHIOLOALVEOLAR LAVAGE / Unknown Collection / Unknown 03/06/2020 3:36 PM CDT 03/06/2020 4:08 PM CDT Elkin Rosenbaum MD LAB - MICROBIOLOGY O LEONARD Performing Organization Address [facility] Co de Phone Number [facility] NON INTERF [address] [place], [place] [address] * ASPERGILLUS GALACTOMANNAN BAL/BLOOD (03/06/2020 3:36 PM CDT) See Scanned Document See Scanned Report 03/08/2020 9:47 AM CDT [facility] NON INTERF Microbiology BRONCHIOLOALVEOLAR LAVAGE / Unknown Collection / Unknown 03/06/2020 3:36 PM CDT 03/06/2020 4:08 PM CDT Elkin Rosenbaum MD LAB - MICROBIOLOGY Jenaro VALLE Performing Organization Address [facility] de Phone Number [facility] NON INTERF [address] [place] [address] * HHV-6 QUANTITATIVE PCR (03/06/2020 3:36 PM CDT) See Scanned Document SEE SCANNED REPORT 03/09/2020 7:54 AM CDT [facility] NON INTERF Microbiology BRONCHIOLOALVEOLAR LAVAGE / Unknown Collection / Unknown 03/06/2020 3:36 PM CDT 03/06/2020 4:06 PM CDT Elkin Rosenbaum MD LAB - MICROBIOLOGY Jenaro VALLE Performing Organization Address [facility] Co de Phone Number [facility] NON INTERF [address] [place] [phone], [place] * RESPIRATORY PATHOGEN PANEL BY PCR (03/06/2020 3:36 PM CDT) Only the most recent of2 resultswithin the time period is included. Adenovirus PCR Not detected Not detected, Invalid, Indeterminate 03/06/2020 11:19 PM CDT [facility] Coronavirus PCR Not detected Not detected, Invalid, Indeterminate 03/06/2020 11:19 PM CDT [facility] Human Metapneumovirus PCR Not detected Not detected, Invalid, Indeterminate 03/06/2020 11:19 PM T [facility] Human Rhinovirus/Entero virus PCR Not detected Not detected, Invalid, Indeterminate 03/06/2020 11:19 PM T [facility] Influenza A PCR Not detected Not detected, Equivocal, Invalid, Indeterminate 03/06/2020 11:19 PM T [facility] Influenza B PCR Not detected Not detected, Invalid, Indeterminate 03/06/2020 11:19 PM T [facility] Parainfluenza Virus 1 PCR Not detected Not detected, Invalid, Indeterminate 03/06/2020 11:19 PM T [facility] Parainfluenza Virus 2 PCR Not detected Not detected, Invalid, Indeterminate 03/06/2020 11:19 PM [facility] Parainfluenza Virus 3 PCR Not detected Not detected, Invalid, Indeterminate 03/06/2020 11:19 PM T [facility] Parainfluenza Virus 4 PCR Not detected Not detected, Invalid, Indeterminate 03/06/2020 11:19 PM T [facility] Respiratory Syncytial Virus PCR Not detected Not detected, Invalid, Indeterminate 03/06/2020 11:19 PM T [facility] Bordetella pertussis PCR Not detected Not detected, Invalid 03/06/2020 11:19 PM T [facility] Chlamydia pneumoniae PCR Not detected Not detected, Invalid, Indeterminate 03/06/2020 11:19 PM T [facility] Mycoplasma pneumoniae PCR Not detected Not detected, Invalid, Indeterminate 03/06/2020 11:19 PM T [facility] Microbiology BRONCHIOLOALVEOLAR LAVAGE / Unknown Collection / Unknown 03/06/2020 3:36 PM CDT 03/06/2020 4:10 PM CDT Narrative [facility] - 03/06/2020 11:19 PM CDT This test is able to detect the following human coronaviruses: HKU1, NL63, 229E, and OC43. It will NOT detect 2019 Novel Coronavirus (2019-nCoV). If 2019-nCoV is suspected contact Infection Prevention for isolation and testing guidance. Elkin Rosenbaum MD LAB - MICROBIOLOGY O LEONARD Performing Organization Address City/[facility]/ZIP Co de Phone Number [facility] [address] [place] [address], [facility] [phone] * CULTURE BRONCHOALVEOLAR LAVAGE QNT+GRAM STAIN (03/06/2020 3:36 PM CDT) Pathologist [facility] Culture No growth SPENCER 03/08/2020 8:06 AM CDT [facility] Gram Stain Light Polymorphonuclear cells 03/08/2020 8:06 AM CDT [facility] Gram Stain No organisms seen 020 8:06 AM CDT [facility] Microbiology BRONCHIOLOALVEOLAR LAVAGE / Unknown Collection / Unknown 03/06/2020 3:36 PM CDT 03/06/2020 4:10 PM CDT Elkin Rosenbaum MD LAB - MICROBIOLOGY O LEONARD Performing Organization Address [facility] de Phone Number [facility] [address] [facility] [place] [address], [facility] [phone] * ADENOVIRUS PCR QUANTITATIVE (VIRACOR) (03/06/2020 3:36 PM CDT) Pathologist [facility] See Scanned Document SEE SCANNED REPORT 03/09/2020 7:59 AM CDT [facility] REF LAB NON INTERF Microbiology BRONCHIOLOALVEOLAR LAVAGE / Unknown Collection / Unknown 03/06/2020 3:36 PM CDT 03/06/2020 4:06 PM CDT Elkin Rosenbaum MD LAB - MICROBIOLOGY O LEONARD Performing Organization Address City/[facility]/ZIP Co de Phone Number [facility] REF LAB NON INTERF [facility] [place] [address], [facility] * CYTOMEGALOVIRUS DNA RT-PCR QUANT (03/06/2020 3:36 PM CDT) Pathologist [facility] See Scanned Document SEE SCANNED REPORT 03/09/2020 8:01 AM CDT [facility] REF LAB NON INTERF Microbiology BRONCHIOLOALVEOLAR LAVAGE / Unknown Collection / Unknown 03/06/2020 3:36 PM CDT 03/06/2020 4:06 PM CDT Elkin Rosenbaum MD LAB - MICROBIOLOGY O LEONARD Performing Organization Address [facility] Co de Phone Number [facility] REF LAB NON INTERF [address] [place] [phone] * CULTURE AFB+SMEAR (03/06/2020 3:36 PM CDT) Culture No acid-fast bacillus isolated 04/17/2020 10:13 AM CDT [facility] AFB Smear No acid-fast bacilli seen 04/17/2020 10:13 AM CDT [facility] Microbiology BRONCHIOLOALVEOLAR LAVAGE / Unknown Collection / Unknown 03/06/2020 3:36 PM CDT 03/06/2020 4:10 PM CDT Elkin Rosenbaum MD LAB - MICROBIOLOGY O LEONARD Performing Organization Address [facility] Co de Phone Number [facility] [address] [place] [address], [facility] [phone] * CULTURE BRONCHIAL BRUSHINGS QUANT (03/06/2020 2:45 PM CDT) Culture No growth SPENCER 03/08/2020 8:06 AM CDT [facility] Microbiology BRONCHIAL BRUSHINGS SPECIMEN / Unknown Collection / Unknown 03/06/2020 2:45 PM CDT 03/06/2020 4:10 PM CDT Elkin Rosenbaum MD LAB - MICROBIOLOGY O LEONARD Performing Organization Address City/[facility] Co de Phone Number [facility] [address] [place] [address], [facility] [phone] * ETT LINE PERFORMABLE (03/06/2020 1:59 PM CDT) Narrative Benjamin Haynes Anes Asst - 03/06/2020 1:59 PM CDT Benjamin Haynes Anes Asst ? 03/06/2020 ??2:00 PM Endotracheal Tube Placement: ? Intubation Event Date/Time: ??03/06/2020 1:33 PM Procedure: intubation (16683). Procedure Section: ?? Sedation: under general anesthesia. Indications for Airway Management: ??anesthesia Induction: rapid sequence Patient Position: ??sniffing Mask Ventilation: not attempted. Blade Type: Video (Cmac 4) Blade Size: 4 Laryngoscopy View: grade 1 (full cords) Intubation Adjuncts: stylet and cricoid pressure Tube: endotracheal tube Placement: oral Tube type: cuff - inflated Tube Size (MM): 9 Depth of Insertion (CM): 24 Measured From: lips Cuff volume (mL): ??10 Cuff Inflated With: air Number of Attempts: 1. Placement Verified By: direct visualization, bilateral breath sounds, chest auscultation, CO2 monitor and bronchoscope Tube secured with: ??ETT baum. Difficult Airway? ??No. Procedure Start Time: 03/06/2020 1:33 PM. Staff Section ?? Anesthesia Provider: Benjamin Haynes Anes Asst, Performed the procedure Casandra Newton MD GENERAL ANESTHESIA O RDERABLES * BRONCHOSCOPY (03/06/2020 12:40 PM CDT) Report Endoscopy [facility] Advanced Diagnostic Bronchoscopy and Interventional Pulmonary Service __ _ Patient Name: Marcello Guillen ?Procedure Date: 03/06/2020 12:40 PM Date of : 1970 ?Attending MD: Elkin Rosenbaum MD Age: 49 ? Room: Bronch Suite ? __ _ Providers: ?Elkin Rosenbaum MD, Krupa Raines MD (Fellow), Jorge Luis Saldaña ?Fatoumata MCGARRY (Fellow), Annabella Hargrove RRT Referring MD: ? Procedure: ?Bronchoscopy Indications: ?Diffuse lung infiltrate Medicines: ?General Anesthesia Comorbidities ? S/p BMT __ _ Description of Procedure: After obtaining informed consent, the EB-1570K ?bronchoscope was introduced through the mouth, via ?the endotracheal tube and advanced to the ?tracheobronchial tree. BAL from the right middle ?lobe was performed with 2 aliquots of 50mL of ?normal saline. Return of over 40mL of clear fluid ?was noted. Next cytology brush was used to collect ?specimens from the right middle lobe. Lastly, ?transbronchial biopsies were performed. The ?procedure was accomplished without difficulty. The ?patient tolerated the procedure well. ? Findings: ? The endotracheal tube is in good position. The visualized portion of the ? trachea is of normal caliber. The olga is sharp. The tracheobronchial ? tree was examined to at least the first subsegmental level. Bronchial ? mucosa and anatomy are normal; there are no endobronchial lesions, and ? no secretions. BAL from the right middle lobe yielded excellent return ? of clear fluid. Brushings from the right middle lobe lateral subsegment ? were collected. Next, 3 transbronchial biopsies were taken from the ? lateral subsegment of the right middle lobe. There was minimal bleeding ? after biopsies that resolved spontaneously. The airways were inspected ? and no active bleeding or obstructions was noted. ? Estimated Blood Loss: ? Estimated blood loss: none. Complications: ?No immediate complications __ _ Impression: ? - The airway examination was normal. ?- BAL from the RML ?- Cytobrush from RML ?- Transbronchial biopsies from RML placed in ?formalin Recommendation: ? - Await BAL, biopsy and brushing results. Patient ?will remain intubated and be admitted to ICU due to ?high PEEP and oxygen requirements Attending Participation: ??I was present and participated during the entire ?procedure, including non-alfonso portions. Elkin Rosenbaum MD 03/08/2020 3:36:47 PM Jorge Luis Ham MD, Krupa Raines MD, Note Initiated On: 03/06/2020 12:40 PM Number of Addenda: 0 ? [facility] ? [address] 03/06/2020 12:4 0 PM CDT Elkin Rosenbaum MD RESPIRATORY THERAPY ORDERABLES Performing Organization Address City/[facility]/ZIP Co de Phone Number [facility] * LACTIC ACID BLOOD (03/04/2020 5:51 AM CDT) [facility] Lactic Acid-Stat 1.0 0.5 - 2.2 mmol/L 03/04/2020 6:17 AM CDT [facility] Blood BLOOD SPECIMEN / Unknown Lab Venipuncture / Unknown 03/04/2020 5:51 AM CDT 03/04/2020 5:59 AM CDT Keli Case ADVERTISING SALES AGENT-FEEDER/FOLDER LAB - CHEMISTRY O RDERABLES Performing Organization Address City/[facility]/[place] Number [place] [address] [place] [address] * LEGIONELLA ANTIGEN URINE (03/03/2020 6:04 PM CDT) [facility] Legionella Antigen Urine Negative Negative 03/04/2020 8:59 AM CDT [facility] Urine URINE / Unknown Collection / Unknown 03/03/2020 6:04 PM CDT 03/03/2020 6:36 PM CDT Narrative [facility] - 03/04/2020 8:59 AM CDT This assay detects Legionella pneumophila serogroup one (1) antigen. A negative test result does not rule out the possibility of Legionella infection due to other serogroups or species of Legionella. A positive result may indicate a recent or remote infection with serogroup 1. Joce Damian DO LAB - MICROBIOLOGY ORDERABLES [facility] [address] [place], [place] [address], [facility] [phone] * ECHO LIMITED OR FOLLOWUP (03/03/2020 5:49 PM CDT) Anatomical Region Laterality Modality Chest Echo 03/03/2020 5:32 PM CDT Narrative Procedure Note Tiffanie Ruiz MD - 03/06/2020 Rafaela Sood APRN-FEEDER/FOLDER ECHOCARDIOGRAP HY RADIANT * VAS BILATERAL VENOUS DUPLEX UE (03/03/2020 3:39 PM CDT) Anatomical Region Laterality Modality Upper Extremity Intravascular Ul trasound 03/03/2020 3:21 PM CDT Narrative Procedure Note Alonso Carreon MD - 03/06/2020 Rafaela Sodo APRN-FEEDER/FOLDER VASCULAR LAB O RDERABLES * VAS BILATERAL VENOUS DUPLEX LE (03/03/2020 3:38 PM CDT) Anatomical Region Laterality Modality Lower Extremity Intravascular Ul trasound 03/03/2020 3:09 PM CDT Narrative Procedure Note Alonso Carreon MD - 03/06/2020 Rafaela Sood APRN-FEEDER/FOLDER VASCULAR LAB O RDERABLES * FLOW CYTOMETRY BONE MARROW (03/03/2020 1:45 PM CDT) Only the most recent of4 resultswithin the time period is included. Case Report Flow Cytometry ?Case: [id number] ? Authorizing Provider: ??Evie, Keli, ADVERTISING SALES AGENT-FEEDER/FOLDER ?? Collected: ? 03/03/2020 01:45 PM ? Ordering Location: ? [facility] ?Received: ?03/03/2020 01:56 PM ? Pathologist: ? Margaret Hooker Mai, DO ? Specimen: ?Bone Marrow ? 03/03/2020 6:41 PM CDT [facility] PATHOLOGY LAB Final Diagnosis Bone marrow, flow cytometric immunophenotypic analysis: - No evidence of non-Hodgkin lymphoma or high-grade myeloid neoplasm. - See interpretation. 03/03/2020 6:[address] [facility] PATHOLOGY LAB Flow Cytometry Interpretation The bone marrow specimen has a viability of 96%. The lymphocyte, dim CD45, monocyte, and granulocyte egan are normal in relative proportion. Within the lymphocyte gate, there is no significant B-cell population identified. There is no expanded T-cell population seen. By CD34, 0.1% of all events analyzed are blasts. A bone marrow aspirate smear prepared from the flow cytometry specimen is reviewed for quality review trainer purposes. The bone marrow aspirate specimen shows no evidence of involvement by non-Hodgkin lymphoma or a high-grade myeloid neoplasm. Correlation with clinical findings, the concurrent bone marrow core biopsy ([id number]), and relevant cytogenetic/molecu lar studies is required. VH/MM 03/03/2020 6:41 PM CDT [facility] Flow Cytometry Results Differential Result Comment Flow Cell Count /uL 37,500 Total Viability % 96.0 Lymphocytes % 2 Dim CD45 Region % 1 Monocytes % 3 Granulocytes % 94 03/03/2020 6:41 PM CDT [facility] Reason for test Diffuse large B-cell lymphoma, unspecified body region 03/03/2020 6:41 PM CDT [facility] Client Specimen ID # [id number] 03/03/2020 6:41 PM CDT [facility] Number of markers 10 were performed. A-1 Flow CD3 A-3 Flow CD10 A-5 Flow CD20 A-6 Flow CD23 A-2 Flow CD5 A-4 Flow CD19 A-7 Flow CD34 A-8 Flow CD45 A-9 [place]+CD19+ A-10 Lambda+CD19+ 03/03/2020 6:41 PM CDT [facility] PATH[facility] Disclaimer Test performed at [facility], [address] [place] [address], [facility]. *The established laboratory minimum viability is 70%. Values below the minimum may result in the failure to find an abnormal population of cells. This test was developed and its performance characteristics determined by the Flow Cytometry Laboratory. It has not been cleared by the [place] Food and Drug Administration (FDA). The FDA has determined that such clearance or approval is not necessary. This test is used for clinical purposes. It should not be regarded as investigational or for research. This laboratory is regulated under the Clinical Laboratory Improvement Amendments of 1998 (CLIA) as a qualified to perform high complexity clinical testing. 03/03/2020 6:41 PM CDT [facility] Embedded Images 0 6:41 PM CDT [facility] Pathology/Cytolo gy BONE MARROW SPECIMEN / Unknown Collection / Unknown 03/03/2020 1:45 PM CDT 03/03/2020 1:56 PM CDT Keli Evie ADVERTISING SALES AGENT-FEEDER/FOLDER LAB - PATHOLOGY/C YTOLOGY ORDERABLES [facility] [address] [place] [address] * BONE MARROW BIOPSY (STL) (03/03/2020 1:45 PM CDT) Only the most recent of4 resultswithin the time period is included. Case Report Bone Marrow Patholog y Report ?Case: [id number] ? Authorizing Provider: ??Evie, Keli, ADVERTISING SALES AGENT-FEEDER/FOLDER ?? Collected: ? 03/03/2020 01:45 PM ? Ordering Location: ? [facility] ?Received: ?03/03/2020 01:56 PM ? Pathologist: ? Margaret Hooker Mai, DO ? Specimens: ?? A) - Bone Marrow Clot ? B) - Bone Marrow Core ? C) - Bone Marrow Aspirate ? D) - Blood Peripheral ? 03/14/2020 8:[address] [facility] PATHOLOGY LAB Final Diagnosis Bone marrow, aspirate, clot section, and core biopsy: - Normocellular marrow with maturing trilineage hematopoiesis. - No morphologic evidence of residual/recurrent non-Hodgkin lymphoma. - See description. Peripheral blood smear: - Normal white blood cell count with absolute neutrophilia. - Normochromic normocytic anemia. - See description. 03/14/2020 8:[address] [facility] PATHOLOGY LAB Comment Overall, the bone marrow specimen is normocellular for age with maturing trilineage hematopoiesis and no morphologic evidence of lymphoma or a high-grade myeloid neoplasm. Concurrent bone marrow flow cytometry ([id number]) demonstrates no evidence of non-Hodgkin lymphoma or a high-grade myeloid neoplasm. Correlation with clinical findings and relevant cytogenetic/molecular testing is required. VH/TF 03/14/2020 8:[address] [facility] PATHOLOGY LAB Peripheral Smear Description Manual Differential Count (100 cells): 87% neutrophils, 6% lymphocytes, 7% monocytes. 14 nRBCs / 100 WBCs. Leukocyte number: increased. Granulocyte morphology: absolute neutrophilia. Lymphocyte morphology: normal. Erythrocyte number: decreased. Erythrocyte morphology: normochromic normocytic. Anisopoikilocytosis: mild. Polychromasia: mild. Platelet number: normal, with some platelet clumping. Platelet morphology: normal. 03/14/2020 8:[address] [facility] PATHOLOGY LAB Bone Marrow Aspirate Differential count (300 cells): 1.3% blasts, 59.3% maturing myeloid precursors, 29% erythroid progenitors, 5.3% eosinophils, 3% lymphocytes, 2% monocytes. Specimen quality: adequate. Spicules: present. Trilineage Hematopoiesis: present. Myeloid:Erythroid ratio: 2.3:1. Myeloid Maturation: normal maturation with no increase in blasts. Erythroid Maturation: slight left shift in maturation. Forms with irregular nuclear contours and budding present. Megakaryocyte morphology: normal nuclear lobation. Storage iron (by special stain): adequate. Sideroblastic iron (by special stain): no ringed sideroblasts seen. 03/14/2020 8:[address] [facility] PATHOLOGY LAB Bone Marrow Core Biopsy and Clot Section Description Specimen quality: adequate. Cellularity: 50 % Trilineage Hematopoiesis: adequate. Myeloid to Erythroid ratio: normal. Myeloid maturation and localization: normal. Erythroid maturation and localization: normal. Megakaryocyte number: normal. Megakaryocyte distribution: rare loose clustering. Lymphoid aggregates: absent. Bone trabeculae: normal. Blood vessels: normal. Other: small circumscribed non-necrotizing granuloma present. Clot section marrow particles: rare, minute spicules. Clot section morphology: similar to core biopsy. 03/14/2020 8:[address] [facility] PATHOLOGY LAB Flow Cytometry Summary Concurrent flow cytometric analysis ([id number]) Shows no evidence of non-Hodgkin's lymphoma or high-grade myeloid neoplasm. 03/14/2020 8:[address] [facility] PATHOLOGY LAB Clinical History The patient is a 49-year-old man who is day 137 status post autologous peripheral blood stem cell transplant. He had a bone marrow biopsy showing CD5-negative, [id number] mature B-cell lymphoma in 03/2019 ([id number]), underwent chemotherapy, and a bone marrow biopsy in 06/2019 ([id number]), and splenectomy in 08/2019 ([id number]) were both negative for lymphoma. He underwent bone marrow biospy as part of day 100 testing which was delayed until now due to positive COVID results. Concurrent flow cytometry ([id number]) is negative for non-Hodgkin lymphoma or high-grade myeloid neoplasm. 03/14/2020 8:[address] [facility] PATHOLOGY LAB Gross Description The requisition and specimen(s) are labeled with the patient's name, Marcello Guillen. Received fresh, specimen A, ASP , is a scant amount of fluid-like blood. Specimen is wrapped in tissue paper and entirely submitted in cassette A1. Specimen B, Core , is a brown-guerra bony tissue core measuring 1.4 x 0.1 x 0.1 cm. Specimen is submitted entirely in cassette B1 following decalcification in 1 hour of rapidcal immuno. KK 03/14/2020 8:[address] [facility] PATHOLOGY LAB Disclaimer The performance characteristics of all immunohistochemical and indirect immunofluorescence stains (if any) cited in this report were determined by the Histopathology Laboratory of [facility]. Some of these tests were developed by our own laboratory and have not been cleared or approved by the US Food and Drug Administration. The FDA does not require this test to go through premarket FDA review. These tests are used for clinical purposes. They should not be regarded as investigational or for research. This laboratory is certified under the Clinical Laboratory Improvement Amendments (CLIA) as qualified to perform high complexity clinical laboratory testing. This case has been personally reviewed and interpreted by the attending (teaching) pathologist. 03/14/2020 8:[address] [facility] PATHOLOGY LAB Addendum 1 Properly controlled special stains were performed on the bone marrow core. GMS staining highlights debris and weak blush staining of some erythrocytes but no distinct fungal elements. AFB staining shows no acid-fast organisms. The diagnosis is unchanged. 03/14/2020 8:[address] [facility] PATHOLOGY LAB Addendum electronically signed by Margaret Hooker Mai, DO on 03/14/2020 at 8:35 AM Embedded Images 03/14/2020 8:[address] [facility] PATHOLOGY LAB Pathology/Cytology PERIPHERAL BLOOD / Unknown Collection / Unknown 03/03/2020 1:45 PM CDT 03/03/2020 1:56 PM CDT Miscellaneous samples (specimen) BONE MARROW SPECIMEN / Unknown 03/03/2020 1:45 PM CDT 03/03/2020 1:56 PM CDT Miscellaneous samples (specimen) SPECIMEN FROM BONE MARROW OBTAINED BY ASPIRATION / Unknown 03/03/2020 1:45 PM CDT 03/03/2020 1:56 PM CDT Miscellaneous samples (specimen) PERIPHERAL BLOOD / Unknown 03/03/2020 1:45 PM CDT 03/03/2020 3:00 PM CDT Keli Evie ADVERTISING SALES AGENT-FEEDER/FOLDER LAB - PATHOLOGY/C YTOLOGY ORDERABLES [facility] [address] [phone] * FISH LYMPHOMA (AGGRESSIVE) PANEL (03/03/2020 1:45 PM CDT) Only the most recent of2 resultswithin the time period is included. FISH Lymphoma (Aggressive) Panel See Note Normal 03/16/2020 9:35 AM CDT [employer] ([facility]) Comment: Specimen Received Specimen Type: ?Bone marrow Reason for Referral: ??Aggressive lymphoma panel Test Performed: ? FISH ALYMPH NORMAL FISH RESULTS 3q27 (BCL6): rearrangement not detected 8q24 (MYC): rearrangement not detected t(14;18)(q32;q21) (IGH;BCL2): rearrangement not detected DIAGNOSTIC IMPRESSION: Fluorescence in situ hybridization (FISH) analysis was performed with the BCL6, MYC, IGH, and BCL2 probes ([email or web address]). 200 interphase cells were scored for each probe combination. This analysis showed normal results with no evidence of t(14;18)(q32;q21) (IGH/BCL2 translocation) or other rearrangements involving BCL6 or MYC. ISCN: nuc sergei(BCL6,MYC,IGH,BCL2)x2[200] This result has been reviewed and approved by Jin Meza, PhD, [facility] A portion of this analysis was performed at the following location(s): [facility], [address] [place] [address], Patrol Guard: Jin Meza, PhD INTERPRETIVE INFORMATION: Lymphoma (Aggressive) Panel by FISH This panel is for the identification of double hit lymphoma and triple hit lymphoma, both of which show morphologic features intermediate between diffuse large B-Cell lymphoma and Burkitt Lymphoma. Both are agressive lymphomas and ??are characterized by a poor survival rate. Test developed and characteristics determined by [employer]. See Compliance Statement A: [employer]/ EER Lymphoma (Aggressive) Pnl FISH See Note 03/16/2020 9:35 AM CDT [employer] ([facility]) Comment: Access [employer] Enhanced Report using either link below: -Direct access: [email or web address] -Enter Username, Password: [email or web address] Username: [email or web address] Password: [email or web address] Performed By: [employer] [address] [place] [address] Patrol Guard: Toribio Elizondo MD, MS Other BONE MARROW SPECIMEN / Unknown Collection / Unknown 03/03/2020 1:45 PM CDT 03/03/2020 1:56 PM CDT Keli Case ADVERTISING SALES AGENT-FEEDER/FOLDER LAB - PATHOLOGY/C YTOLOGY ORDERABLES [facility] [employer] [facility]) [address] [place] [address], [facility] * CHROMOSOME ANALYSIS BONE MARROW PANEL (03/03/2020 1:45 PM CDT) Only the most recent of2 resultswithin the time period is included. Chromosome Analysis Bone Marrow See Note Normal 03/14/2020 1:20 PM CDT [facility] [employer] ([facility]) Comment: Specimen received Specimen type: ? Bone Marrow Reason for referral: DLBCL Test performed: ?Chromosome Analysis Laboratory analysis Number of cells counted: ?20 Number of cells analyzed: ?? 20 Number of cells karyotyped: 15 ISCN Band level: ?400 Banding Method: ? G-Banding Chromosome Results: 46,XY[20] Diagnostic Impression: Evaluation of metaphase cells from this patient revealed a normal male chromosome complement. There were no abnormal clones detected within the limits of the technology utilized in this study. NOTE: FISH ALYMP is pending on this sample and will be reported under [employer] accession #[id number]. This result has been reviewed and approved by Kraig Martinez MD, PhD, [employer] A portion of this analysis was performed at the following location(s): [address], [address], [address], Patrol Guard: Vicki Montesinos, PhD INTERPRETIVE INFORMATION: Chromosome Analysis, Bone Marrow Test developed and characteristics determined by [employer]. See Compliance Statement B: [employer]/ EER Chromosome Analysis Bone Marrow See Note 03/14/2020 1:20 PM CDT [employer] ([facility]) Comment: Access [employer] Enhanced Report using either link below: -Direct access: [email or web address] -Enter Username, Password: [email or web address] Username: [email or web address] Password: [email or web address] Performed By: [employer] [address] [place] [address] Patrol Guard: Toribio Elizondo MD, MS Bone marrow BONE MARROW SPECIMEN / Unknown 03/03/2020 1:45 PM CDT 03/03/2020 1:56 PM CDT Keli Evie ADVERTISING SALES AGENT-FEEDER/FOLDER LAB - PATHOLOGY/C YTOLOGY ORDERABLES [employer] ([facility]) [address] [place] [address], [facility] * (ABNORMAL) FIBRINOGEN ACTIVITY (03/03/2020 12:47 PM CDT) Only the most recent of2 resultswithin the time period is included. Fibrinogen Clauss 584(H) 200 - 400 mg/dL 03/03/2020 1:18 PM CDT [facility] Blood BLOOD SPECIMEN / Unknown Lab Venipuncture / Unknown 03/03/2020 12:47 PM CDT 03/03/2020 1:06 PM CDT Rafaela Sood ADVERTISING SALES AGENT-FEEDER/FOLDER LAB - COAGULAT ION ORDERABLES Performing Organization Address [facility]/ZIP Co de Phone Number [address] [address], [place] [phone] * [id number] FUNGITELL BAL/BLOOD (03/03/2020 12:14 AM CDT) Pathologist [facility] See Scanned Document See Scanned Report 03/15/2020 9:01 PM CDT [facility] NON INTERF Microbiology BLOOD SPECIMEN / Unknown Collection / Unknown 03/03/2020 12:14 AM CDT 03/03/2020 12:27 AM CDT Dana Lala ADVERTISING SALES AGENT-THEATRICAL SCENIC DESIGNER LAB - MICROB IOLOGY ORDERABLES Performing Organization Address [facility] Co de Phone Number [facility] NON INTERF [address] [place] [phone], [place] * PNEUMOCYSTIS JIROVECI QUANT PCR (03/03/2020 12:14 AM CDT) [facility] See Scanned Document SEE SCANNED REPORT 03/07/2020 11:47 AM CDT [facility] NON INTERF Microbiology BLOOD SPECIMEN / Unknown Collection / Unknown 03/03/2020 12:14 AM CDT 03/03/2020 12:27 AM CDT Dana Lala APRN-THEATRICAL SCENIC DESIGNER LAB - MICROB IOLOGY ORDERABLES Performing Organization Address [facility]/ZIP Co de Phone Number [facility] NON INTERF [address] [place] [phone], [place] * CT CHEST W CONTRAST (03/02/2020 10:04 PM CDT) Anatomical Region Laterality Modality Chest Computed Tomogra phy 03/02/2020 10:1 5 PM CDT Impressions 03/03/2020 10:09 AM CDT IMPRESSION: 1. Altered distribution of prominent geographic groundglass opacities within the upper and lower lung zones bilaterally. This suggests ongoing inflammatory or infectious process, rather than discrete areas of progressive fibrosis. Areas of groundglass can progress to fibrosis, therefore continued follow-up is advised. 2. 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 Dictated by Jose Gonzalez MD (regional vice president life sales). I, Dr. YARA MADRIGAL have personally reviewed and interpreted this examination/study. This report was electronically signed by YARA MADRIGAL ??on 03/03/2020 10:09 AM . Narrative 03/03/2020 10:09 AM CDT EXAMINATION: Computed tomography (CT) of the chest with contrast HISTORY: B-cell lymphoma with possible infection; followup on GGO/infiltrate from previous CT. Also clinical concern for pulmonary fibrosis as patient is on a antineoplastic drug which could cause pulmonary fibrosis. TECHNIQUE: CT of the chest was performed following the uneventful administration of 100 mL of Isovue 370 intravenous contrast according to standard protocol. COMPARISON: CT chest abdomen pelvis contrast dated 02/26/2020 FINDINGS: There is a left-sided aortic arch. The aorta and main pulmonary artery are normal in course and caliber. The previously identified filling defect within the left brachiocephalic vein is redemonstrated and extends into the superior vena cava suggestive of nonocclusive thrombus. The heart size is normal. No pericardial effusion is present. No mediastinal, hilar, supraclavicular, or axillary lymphadenopathy is seen. The thyroid gland enhances homogenously. There is redemonstration of prominent geographic areas of groundglass attenuation within the lungs bilaterally, within the upper and lower lung zones. There have been mixed changes, with some enlargement of some areas, and some areas which have resolved. There is no suggestion of honeycombing, traction bronchiectasis, reticulation, or significant architectural distortion to suggest pulmonary fibrosis as clinically queried. No pleural effusion or focal pleural thickening is identified. There is no evidence of pneumothorax. No suspicious pulmonary nodule is identified. The trachea is patent and midline. Procedure Note Yara Madrigal MD - 03/03/2020 EXAMINATION: Computed tomography (CT) of the chest with contrast HISTORY: B-cell lymphoma with possible infection; followup on GGO/infiltrate from previous CT. Also clinical concern for pulmonary fibrosis as patient is on a antineoplastic drug which could cause pulmonary fibrosis. TECHNIQUE: CT of the chest was performed following the uneventful administration of 100 mL of Isovue 370 intravenous contrast according to standard protocol. COMPARISON: CT chest abdomen pelvis contrast dated 02/26/2020 FINDINGS: There is a left-sided aortic arch. The aorta and main pulmonary arteryare normal in course and caliber. The previously identified filling defect within the left brachiocephalic vein is redemonstrated and extends into the superior vena cava suggestive of nonocclusive thrombus. The heart size is normal. No pericardial effusion is present. No mediastinal, hilar, supraclavicular, or axillary lymphadenopathy isseen. The thyroid gland enhances homogenously. There is redemonstration of prominent geographic areas of groundglass attenuation within the lungs bilaterally, within the upper and lowerlung zones. There have been mixed changes, with some enlargement of someareas, and some areas which have resolved. There is no suggestion of honeycombing, traction bronchiectasis, reticulation, or significant architectural distortion to suggest pulmonary fibrosis as clinically queried. No pleural effusion or focal pleural thickening is identified. There isno evidence of pneumothorax. No suspicious pulmonary nodule is identified. The trachea is patent and midline. IMPRESSION: 1. Altered distribution of prominent geographic groundglass opacities within the upper and lower lung zones bilaterally. This suggests ongoing inflammatory or infectious process, rather than discrete areas of progressive fibrosis. Areas of groundglass can progress to fibrosis, therefore continued follow-up is advised. 2. 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 Dictated by Jose Gonzalez MD (regional vice president life sales). I, Dr. YARA MADRIGAL have personally reviewed and interpreted this examination/study. This report was electronically signed by YARA MADRIGAL on 03/03/2020 10:09 AM . Dana Lala ADVERTISING SALES AGENT-THEATRICAL SCENIC DESIGNER CT ORDERABLE S * HERPES SIMPLEX 1+2 PCR CSF (03/01/2020 12:41 PM CDT) Herpes Simplex Virus 1 PCR CSF Not detected Not detected 03/01/2020 7:20 PM CDT [facility] Herpes Simplex Virus 2 PCR CSF Not detected Not detected 03/01/2020 7:20 PM CDT [facility] Microbiology CEREBROSPINAL FLUID SPECIMEN / Unknown Collection / Unknown 03/01/2020 12:41 PM CDT 03/01/2020 12:41 PM CDT Dana Jonatan Dai ADVERTISING SALES AGENT-THEATRICAL SCENIC DESIGNER LAB - MICROB IOLOGY ORDERABLES Performing Organization Address City/[facility]/ZIP Co de Phone Number [facility] [address] [place] [address], [facility] [phone] * CRYPTOCOCCUS ANTIGEN CSF (03/01/2020 11:16 AM CDT) Cryptococcus Antigen CSF Negative Negative 03/01/2020 4:46 PM CDT [facility] Cerebral spinal fluid CEREBROSPINAL FLUID SPECIMEN / Unknown Collection / Unknown 03/01/2020 11:16 AM CDT 03/01/2020 11:16 AM CDT Marek Vasquez MD LAB - MICROBIOLOGY O RDERABLES Performing Organization Address City/[facility]/ZIP Co de Phone Number [facility] [address] [place] [address], [facility] [phone] * PROTEIN CSF (03/01/2020 10:48 AM CDT) Protein CSF 20 15 - 45 mg/dL 03/01/2020 11:32 AM CDT [facility] Cerebral spinal fluid CEREBROSPINAL FLUID SPECIMEN / Unknown Collection / Unknown 03/01/2020 10:48 AM CDT 03/01/2020 11:01 AM CDT Dana Jonatan Dai ADVERTISING SALES AGENT-THEATRICAL SCENIC DESIGNER LAB - BODY F LUID ORDERABLES Performing Organization Address City/[facility]/ZIP Co de Phone Number [facility] [address] [place] [phone] [phone] * (ABNORMAL) GLUCOSE CSF (03/01/2020 10:48 AM CDT) Glucose CSF 81(H) 40 - 70 mg/dL 03/01/2020 11:32 AM CDT [facility] Cerebral spinal fluid CEREBROSPINAL FLUID SPECIMEN / Unknown Collection / Unknown 03/01/2020 10:48 AM CDT 03/01/2020 11:01 AM CDT Dana Lala ADVERTISING SALES AGENT-THEATRICAL SCENIC DESIGNER LAB - BODY F LUID ORDERABLES [address] [phone] [phone] * FL LUMBAR PUNCTURE (03/01/2020 10:44 AM CDT) Anatomical Region Laterality Modality Spine Radiographic Chayito ging 03/01/2020 10:4 6 AM CDT Impressions 03/01/2020 4:46 PM CDT IMPRESSION: 1. Successful lumbar puncture under fluoroscopic guidance at L3-L4. Dictated by Camacho Samayoa MD (Linux Support Engineer) Trey Harris MD, was personally present in the procedure room for the alfonso portions of the procedure and was immediately available to furnish services during the entire procedure. IDr. TREY have personally reviewed and interpreted this examination/study. This report was electronically signed by TREY MURPHY ??on 03/01/2020 4:46 PM . Narrative 03/01/2020 4:46 PM CDT EXAMINATION: Diagnostic lumbar puncture (LP) under fluoroscopic guidance HISTORY: C83.30: Diffuse large B-cell lymphoma, unspecified body region; R51: Headache around the eyes; R50.81: Fever in other diseases TECHNIQUE: ??The risks and benefits of the lumbar puncture including, but not limited to, infection, bleeding, seizure, epidural hematoma, post spinal headache, cerebrospinal fluid (CSF) leak requiring blood patch procedure, nausea, vomiting, irritation or damage to nerves causing pain or permanent injury were discussed with the patient. After alternatives were discussed and the opportunity to ask questions was provided, the patient acknowledged understanding, gave verbal and written consent, and wished to proceed. Attending physician: Dr. Murphy was present for the alfonso portions of this procedure. The L2-L3 level was localized with fluoroscopy. The skin overlying this level was then sterilely prepped, draped, and infiltrated with 1% lidocaine for local anesthesia. Under intermittent fluoroscopic guidance, a 22 gauge 5 inch needle was inserted into the thecal sac at this level. Clear CSF was identified. A total of 14 ml of CSF was removed and placed into 3 specimen tubes. The patient tolerated the procedure well. The patient was then transferred to the inpatient sanders for further observation and at least 3 hours of bedrest. OPENING PRESSURE: Not performed FLUOROSCOPY TIME: 38 seconds Procedure Note Trey Murphy MD - 03/01/2020 EXAMINATION: Diagnostic lumbar puncture (LP) under fluoroscopic guidance HISTORY: C83.30: Diffuse large B-cell lymphoma, unspecified body region; R51: Headache around the eyes; R50.81: Fever in other diseases TECHNIQUE: The risks and benefits of the lumbar puncture including, but not limited to, infection, bleeding, seizure, epidural hematoma, post spinal headache, cerebrospinal fluid (CSF) leak requiring blood patch procedure, nausea, vomiting, irritation or damage to nerves causing pain or permanent injury were discussed with the patient. After alternatives were discussed and the opportunity to ask questions was provided, the patient acknowledged understanding, gave verbal and written consent, and wished to proceed. Attending physician: Dr. Murphy was present for the alfonso portions of this procedure. The L2-L3 level was localized with fluoroscopy. The skin overlying this level was then sterilely prepped, draped, and infiltrated with 1% lidocaine for local anesthesia. Under intermittent fluoroscopicguidance, a 22 gauge 5 inch needle was inserted into the thecal sac at this level. Clear CSF was identified. A total of 14 ml of CSF was removed and placed into 3 specimen tubes. The patient tolerated the procedure well. The patient was then transferred to the inpatient sanders for furtherobservation and at least 3 hours of bedrest. OPENING PRESSURE: Not performed FLUOROSCOPY TIME: 38 seconds IMPRESSION: 1. Successful lumbar puncture under fluoroscopic guidance at L3-L4. Dictated by Camacho Samayoa MD (Linux Support Engineer) Trey Harris MD, was personally present in the procedure room for the alfonso portions of the procedure and was immediately [facility] [place] during the entire procedure. I, Dr. TREY MURPHY have personally reviewed and interpreted this examination/study. This report was electronically signed by TREY MURPHY on 03/01/2020 4:46 PM . Rafaela Sood ADVERTISING SALES AGENT-FEEDER/FOLDER FLUOROSCOPY OR DERABLES * OLIGOCLONAL BANDS CSF+BLOOD PANEL (03/01/2020 10:39 AM CDT) See Scanned Document See scanned report 03/03/2020 6:02 AM CDT [facility] ([facility]) Oligoclonal Bands 03/03/2020 6:02 AM CDT [facility]) Other MISCELLANEOUS SAMPLES / Unknown Collection / Unknown 03/01/2020 10:39 AM CDT 03/01/2020 3:18 PM CDT Dana Lala ADVERTISING SALES AGENT-THEATRICAL SCENIC DESIGNER LAB - BODY F LUID ORDERABLES [facility]) [address] [place] [address], [facility] * CELL COUNT W DIFFERENTIAL CSF (03/01/2020 10:39 AM CDT) Color Fluid Colorless Colorless, Straw 03/01/2020 11:19 AM CDT [facility] Clarity Fluid Clear Clear 03/01/2020 11:19 AM CDT [facility] Volume Fluid 3.0 mL 03/01/2020 11:19 AM CDT [facility] WBC Calculation Fluid 1 0 - 5 /uL 03/01/2020 11:19 AM T [facility] RBC Calculation 1 /uL 0 11:19 AM [facility] Xanthochromia Fluid Negative Negative 03/01/2020 11:19 AM [facility] Differential Manual Differential to follow. 03/01/2020 11:19 AM [facility] Cerebral spinal fluid CEREBROSPINAL FLUID SPECIMEN / Unknown Collection / Unknown 03/01/2020 10:39 AM CDT 03/01/2020 10:57 AM CDT Narrative [facility] - 03/01/2020 11:19 AM CDT No reference ranges established for body fluid cell counts. The reference ranges provided are derived from published literature. The test results must be integrated into the clinical context for interpretation. Dana Cheung Dai ADVERTISING SALES AGENT-THEATRICAL SCENIC DESIGNER LAB - BODY F LUID ORDERABLES Performing Organization Address [facility] Co de Phone Number [facility] [address] [phone] [phone] * ASPERGILLUS GALACTOMANNAN AG BAL/BLOOD (02/28/2020 5:55 AM CDT) Aspergillus Antigen BAL/Serum 0.05 0.00 - 0.49 Index 03/02/2020 1:06 AM CDT [facility] ([facility]) Other BLOOD SPECIMEN / Unknown Collection / Unknown 02/28/2020 5:55 AM CDT 02/28/2020 7:04 AM CDT Narrative [facility] ([facility]) - 03/02/2020 1:06 AM CDT Performed at: ??01 - [facility] [address] ??[id number] [employer] Crewman: Sherri Nolan MD, Phone: ??[phone] Katia Roque ADVERTISING SALES AGENT-FEEDER/FOLDER LAB - CHEMISTRY O RDERABLES Performing Organization Address [facility] Co de Phone Number [facility] ([facility]) [address] [place] [address] * HISTOPLASMA GALACTOMANNAN AG URINE (02/27/2020 4:41 PM CDT) Urine URINE / Unknown Collection / Unknown 02/27/2020 4:41 PM CDT 02/27/2020 4:50 PM CDT Katia Roque ADVERTISING SALES AGENT-FEEDER/FOLDER LAB - URINE CHEMI STRY ORDERABLES Performing Organization Address [facility]/ZIP Co de Phone Number [facility] NON INTERF [address] [place] [phone], [place] * BLASTOMYCES ANTIBODY BY ID (02/27/2020 3:14 PM CDT) Blastomyces Antibody (ID) None Detected None Detected 03/03/2020 6:06 PM CDT [facility] [employer] ([facility]) Comment: INTERPRETIVE INFORMATION: Blastomyces dermatitidis Antibodies by ?Immunodiffusion A positive result may suggest active or recent infection. The test is positive in about 80 percent of cases. Cross reactions occur, especially with histoplasmosis. A negative test (none detected) does not exclude blastomycosis. Performed By: [facility] [address] [place] [id number] Patrol Guard: Toribio Elizondo MD, MS Blood BLOOD SPECIMEN / Unknown Lab Venipuncture / Unknown 02/27/2020 3:14 PM CDT 02/27/2020 3:21 PM CDT Katia Roque ADVERTISING SALES AGENTSteamsharp Technology LAB - CHEMISTRY O RDERABLES Performing Organization Address [facility]/ZIP Co de Phone Number [facility] [employer] ([facility]) [address] [place], [place] [address] * HISTOPLASMA ANTIGEN BLOOD (02/27/2020 3:14 PM CDT) Pathologist [facility] Comment SEE SCANNED REPORT 03/07/2020 12:10 PM CDT [facility] ([facility]) Blood BLOOD SPECIMEN / Unknown Lab Venipuncture / Unknown 02/27/2020 3:14 PM CDT 02/27/2020 3:21 PM CDT Katia Mya ADVERTISING SALES AGENTSteamsharp Technology LAB - CHEMISTRY O RDERABLES [employer] ([facility]) [address] * BARTONELLA HENSELAE ANTIBODY IGM (02/27/2020 4:11 AM CDT) Pathologist [facility] Bartonella henselae Antibody IgM < 1:16 03/01/2020 11:29 PM CDT [facility] [employer] ([facility]) Comment: INTERPRETIVE INFORMATION: Bartonella henselae Antibody, IgM ??Less than 1:16 ...... Negative: No significant level of ?Bartonella henselae IgM antibody ?detected. ??1:16 or greater ..... Positive: Presence of IgM antibody ?to Bartonella henselae detected, ?suggestive of current or recent ?infection. The presence of IgM antibodies suggest recent infection, low levels of IgM antibodies may occasionally persist for more than 12 months post infection. Test developed and characteristics determined by [facility]. See Compliance Statement A: [employer]/CS Performed By: [facility] [address] [place] [address] Patrol Guard: Toribio Elizondo MD, MS Blood BLOOD SPECIMEN / Unknown Venipuncture / Unknown 02/27/2020 4:11 AM CDT 02/27/2020 4:17 AM CDT Monica Latif ADVERTISING SALES AGENT-FEEDER/FOLDER LAB - SEROLOGY ORD ERABLES Performing Organization Address City/State/[facility] Co de Phone Number [employer] [facility]) [address] * BARTONELLA HENSELAE ANTIBODY IGG (02/27/2020 4:11 AM CDT) Bartonella henselae Antibody IgG <1:64 03/01/2020 11:29 PM CDT [facility] [employer] ([facility]) Comment: INTERPRETIVE INFORMATION: Bartonella henselae Ab, IgG ??Less than 1:64 ....... Negative: No significant level of ? Bartonella henselae IgG antibody ? detected. ??1:64 - 1:128 ......... Equivocal: Questionable presence ? of Bartonella henselae IgG ? antibody detected. Repeat testing ? in 10-14 days may be helpful. ??1:256 or greater ..... Positive: Presence of IgG ? antibody to Bartonella henselae ? detected, suggestive of current ? or past infection. A low positive suggests past exposure or infection, while high positive results may indicate recent or current infection, but are inconclusive for diagnosis. Seroconversion between acute and convalescent sera is considered strong evidence of recent infection. The best evidence for infection is significant change on two appropriately timed specimens where both tests are done in the same laboratory at the same time. Test developed and characteristics determined by [facility]. See Compliance Statement A: [employer]/CS Performed By: [facility] [address] [place] [address] Patrol Guard: Toribio Elizondo MD, MS Blood BLOOD SPECIMEN / Unknown Venipuncture / Unknown 02/27/2020 4:11 AM CDT 02/27/2020 4:17 AM CDT Monica Latif ADVERTISING SALES AGENT-FEEDER/FOLDER LAB - SEROLOGY ORD ERABLES [employer] ([facility]) [address] [place] [address], [facility] * TOXOPLASMA GONDII PCR (02/27/2020 4:11 AM CDT) Pathologist [facility] Toxoplasma gondii PCR Not Detected 03/06/2020 10:16 AM CDT [facility] [employer] ([facility]) Comment: NOT DETECTED - A negative result does not rule out the presence of PCR inhibitors in the patient specimen or assay specific nucleic acid in concentrations below the level of detection by the assay. The specimen submitted for testing did not meet [facility] submission guidelines. Testing was performed on a specimen that did not meet validated type requirements. Performance characteristics of this assay may be affected. Interpret results with caution. Please refer to the [employer] [facility] Test Directory for information on specimen acceptability: [email or web address]. INTERPRETIVE INFORMATION: Toxoplasma gondii by PCR This test was developed and its performance characteristics determined by [facility]. The U.S. Food and Drug Administration has not approved or cleared this test; however, FDA clearance or approval is not currently required for clinical use. The results are not intended to be used as the sole means for clinical diagnosis or patient management decisions. Performed by [facility], [address] [place] [address] [email or web address], Toribio Elizondo MD, Lab. Director Source Toxoplasma Blood 020 10:16 AM CDT [facility] [employer] [facility]) Microbiology BLOOD SPECIMEN / Unknown Collection / Unknown 02/27/2020 4:11 AM CDT 02/27/2020 4:17 AM CDT Narrative [facility]) - 03/06/2020 10:16 AM CDT Test results should be interpreted with caution. Assay was performed at client's request on a sub-optimal submission. Monica Latif APRN-FEEDER/FOLDER LAB - MICROBIOLOGY ORDERABLES [facility] [employer] [facility]) [address] * TOXOPLASMA GONDII ANTIBODY IGM (02/27/2020 4:11 AM CDT) Pathologist [facility] Toxoplasma Antibody IgM 6.2 <=7.9 AU/mL 03/02/2020 4:23 PM CDT [facility] [employer] ([facility]) Comment: INTERPRETIVE INFORMATION: Toxoplasma Ab, IgM ??7.9 AU/mL or less .... Not Detected. ??8.0-9.9 AU/mL ........ Indeterminate - Repeat testing in ? 10-14 days may be helpful. ??10.0 AU/mL or greater. Detected - Significant level of ? Toxoplasma gondii IgM antibody ? detected and may indicate a current ? or recent infection. However, low ? levels of IgM antibodies may ? occasionally persist for more than ? 12 months post-infection. This test is performed using the [employer] LIAISON. As suggested by the CDC, any indeterminate or detected Toxoplasma gondii IgM result should be retested in parallel with a specimen collected 1-3 weeks later. Further confirmation may be necessary using a different test from another reference laboratory specializing in toxoplasmosis testing where an IgM ESTEBAN should be ordered. Caution should be exercised in the use of IgM antibody levels in screening. Any Toxoplasma gondii IgM in patients that have also been confirmed by a second reference laboratory should be evaluated by amniocentesis and PCR testing for Toxoplasma gondii. For male and non- female patients with indeterminate or detected Toxoplasma gondii IgM results, PCR may also be useful if a specimen can be collected from an affected body site. This test should not be used for blood donor screening, associated re-entry protocols, or for screening Human Cell, Tissues and Cellular and Tissue-Based Products (HCT/P). For additional information, refer to the CDC website: www.cdc.gov/parasites/toxoplasmosis/health_professionals/index.html . The magnitude of the measured result is not indicative of the amount of antibody present. Performed By: [facility] [address] [place] [address] Patrol Guard: Toribio Elizondo MD, MS Blood BLOOD SPECIMEN / Unknown Venipuncture / Unknown 02/27/2020 4:11 AM CDT 02/27/2020 4:17 AM CDT Monica [facility] - SEROLOGY ORD ERABLES Performing Organization Address [facility]/ZIP Co de Phone Number [facility] [employer] [facility]) [address] [place] [address] * TOXOPLASMA GONDII ANTIBODY IGG (02/27/2020 4:11 AM CDT) Only the most recent of2 resultswithin the time period is included. [facility] Toxoplasma Antibody IgG <3.0 IU/mL 03/01/2020 2:42 AM CDT [facility] ([facility]) Comment: INTERPRETIVE INFORMATION: Toxoplasma Ab, IgG ??7.1 IU/mL or less....... Not Detected ??7.2-8.7 IU/mL .......... Indeterminate-Repeat testing in ? 10-14 days may be helpful. ??8.8 IU/mL or greater ... Detected The best evidence for current infection is a significant change on two appropriately timed specimens, where both tests are done in the same laboratory at the same time. This test should not be used for blood donor screening, associated re-entry protocols, or for screening Human Cell, Tissues and Cellular and Tissue-Based Products (HCT/P). The magnitude of the measured result is not indicative of the amount of antibody present. Performed By: [facility] [address] [place] [address] Patrol Guard: Toribio Elizondo MD, MS Blood BLOOD SPECIMEN / Unknown Venipuncture / Unknown 02/27/2020 4:11 AM CDT 02/27/2020 4:17 AM CDT Monica [facility] - CHEMISTRY OR DERABLES Performing Organization Address [facility]/ZIP Co de Phone Number [facility] [employer] ([facility]) [address] [place] [address], [facility] * CRYPTOCOCCUS ANTIGEN BLOOD (02/27/2020 4:11 AM CDT) Cryptococcus Antigen Negative Negative 02/27/2020 9:20 AM CDT [facility] Blood BLOOD SPECIMEN / Unknown Venipuncture / Unknown 02/27/2020 4:11 AM CDT 02/27/2020 4:17 AM CDT Monica Latif ADVERTISING SALES AGENT-FEEDER/FOLDER LAB - SEROLOGY ORD ERABLES [facility] [address] [place] [address], [facility] [phone] * MRI BRAIN WWO CONTRAST (02/26/2020 9:47 PM CDT) Anatomical Region Laterality Modality Head Magnetic Resonan ce 02/27/2020 4:12 PM CDT Impressions 02/27/2020 4:21 PM CDT IMPRESSION: 1. No evidence of acute intracranial findings. This report was electronically signed by KISHORE LOAIZA ??on 02/27/2020 4:21 PM . Narrative 02/27/2020 4:21 PM CDT MRI BRAIN WWO CONTRAST DATE: 02/26/2020 9:58 PM EXAMINATION: Magnetic resonance imaging (MRI) of the brain without and with contrast HISTORY: R50.9: Fever, unspecified fever cause. C83.30: Diffuse large B-cell lymphoma, unspecified body region. R51: Headache around the eyes TECHNIQUE: MRI of the brain was performed prior to and following the uneventful administration of 10 mL intravenous GADAVIST contrast according to a tumor protocol. COMPARISON: No prior study is available for comparison at the time of this dictation. FINDINGS: A small focus of susceptibility in the left parietal lobe, (series 10, image 35), likely representing a small focus of microhemorrhage or mineralization. Otherwise, no evidence of acute or chronic hemorrhage is identified. No evidence of acute cerebral infarction is seen. Mild nonspecific prominence of the ventricles can be within normal limits or represent subtle generalized volume loss. The ventricles are otherwise normal in shape and morphology. No mass effect or midline shift is seen. Rare cerebral hemispheric white matter FLAIR hyperintensities are a nonspecific finding. There is a small focus of enhancement along the left middle frontal gyrus, likely a small developmental venous anomaly, (series 14, images 126-128). No enhancing lesions are identified. The corpus callosum and sella appear normal. The posterior fossa, brainstem, and craniocervical junction appear normal. Mild prominence of the optic nerve sheath is bilaterally. The orbits appear otherwise grossly unremarkable There is mild paranasal sinus disease. The imaged mastoid air cells appear grossly clear. Normal flow voids are demonstrated in the carotid arteries and basilar artery. The calvarium and visualized cervical spine appear normal. Procedure Note Kishore Loaiza MD - 02/27/2020 MRI BRAIN WWO CONTRAST DATE: 02/26/2020 9:58 PM EXAMINATION: Magnetic resonance imaging (MRI) of the brain without and with contrast HISTORY: R50.9: Fever, unspecified fever cause. C83.30: Diffuse large B-cell lymphoma, unspecified body region. R51: Headache around the eyes TECHNIQUE: MRI of the brain was performed prior to and following the uneventful administration of 10 mL intravenous GADAVIST contrastaccording to a tumor protocol. COMPARISON: No prior study is available for comparison at the time ofthis dictation. FINDINGS: A small focus of susceptibility in the left parietal lobe, (series 10, image 35), likely representing a small focus of microhemorrhage or mineralization. Otherwise, no evidence of acute or chronic hemorrhage is identified. No evidence of acute cerebral infarction is seen. Mild nonspecific prominence of the ventricles can be within normal limits or represent subtle generalized volume loss. The ventricles are otherwise normal in shape and morphology. No mass effect or midline shift is seen. Rare cerebral hemispheric white matter FLAIR hyperintensities are a nonspecific finding. There is a small focus of enhancement along theleft middle frontal gyrus, likely a small developmental venous anomaly,(series 14, images 126-128). No enhancing lesions are identified. The corpus callosum and sella appear normal. The posterior fossa, brainstem, and craniocervical junction appear normal. Mild prominence of the optic nerve sheath is bilaterally. The orbits appear otherwise grossly unremarkable There is mild paranasal sinus disease. The imaged mastoid air cells appear grossly clear. Normal flow voids are demonstrated in the carotid arteries and basilar artery. The calvarium and visualized cervical spine appear normal. IMPRESSION: 1. No evidence of acute intracranial findings. This report was electronically signed by KISHORE LOAIZA on02/27/2020 4:21 PM . Monica MIM[facility] MR ORDERABLES * CULTURE BLOOD FUNGUS (02/26/2020 5:05 PM CDT) Culture No fungus isolated SPENCER 04/11/2020 10:26 AM CDT [facility] Blood PERIPHERAL BLOOD / Unknown Lab Venipuncture / Unknown 02/26/2020 5:05 PM CDT 02/26/2020 5:32 PM CDT Monica Latif JOSE DAVIDKatFEEDER/FOLDER LAB - MICROBIOLOGY ORDERABLES Performing Organization Address City/[facility]/ZIP Co de Phone Number [facility] [address] [place] [address], [facility] [phone] * CULTURE BLOOD AFB (02/26/2020 5:05 PM CDT) Culture No acid-fast bacillus isolated 04/11/2020 4:08 PM CDT [facility] Blood PERIPHERAL BLOOD / Unknown Lab Venipuncture / Unknown 02/26/2020 5:05 PM CDT 02/26/2020 6:56 PM CDT Monica [facility] ORDERAB[facility] Performing Organization Address City/[facility]/ZIP Co de Phone Number [facility] [address] [place] [address], [facility] [phone] * CT CHEST ABDOMEN PELVIS W CONT (02/26/2020 4:52 PM CDT) Anatomical Region Laterality Modality Chest, Abdomen, Pelvis Computed Tomography 02/26/2020 5:03 PM CDT Impressions 02/27/2020 7:01 AM CDT IMPRESSION: 1. Patchy, peripheral predominant groundglass opacities in the bilateral lungs likely represent infection, including possible atypical or viral etiologies in this patient with history of immune compromise. 2. A thin linear hypodense filling defect in the left brachiocephalic vein extending to the junction with the superior vena cava may represent nonocclusive thrombus or flow artifact. 3. No acute process identified in the abdomen or pelvis. Dictated by Love Rowland MD (regional vice president life sales). I, Dr. JOHN BLUM MD have personally reviewed and interpreted this examination/study. This report was electronically signed by JOHN BLUM MD ??on 02/27/2020 7:01 AM . 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 COMPARISON: CT abdomen pelvis from 07/26/2019 FINDINGS: Chest: There is a left-sided aortic arch. The aorta and main pulmonary artery are normal in course and caliber. A thin linear hypodense filling defect in the left brachiocephalic vein extending to the junction with the superior vena cava may represent a nonocclusive thrombus or flow artifact (series 7 image 55). The heart size is normal. No pericardial effusion is present. No mediastinal, hilar, supraclavicular, or axillary lymphadenopathy is seen. The thyroid gland enhances homogenously. Patchy peripheral predominant groundglass opacities in the bilateral lungs likely represent infection. No pleural effusion or focal pleural thickening is identified. There is no evidence of pneumothorax. No suspicious pulmonary nodule is identified. The trachea is patent and midline. Abdomen/pelvis: The liver enhances homogenously. The gallbladder is normal without evidence of wall thickening, pericholecystic fluid, or gallstones. The intrahepatic and extrahepatic bile ducts are nondilated. The spleen is surgically absent. The pancreas and adrenal glands are normal. Focal cortical thinning in the right kidney may represent sequela of prior infection. Otherwise the kidneys enhance symmetrically. There is no evidence of renal calculus or hydronephrosis. The esophagus and stomach appear normal. There is colonic diverticulosis without evidence of diverticulitis. Otherwise the small bowel and large bowel are normal in caliber without evidence of wall thickening or obstruction. The appendix appears normal without appendicolith or surrounding inflammatory changes. No free air or free fluid is identified within the abdomen. There is no abdominal lymphadenopathy. The abdominal aorta is normal in course and caliber. The urinary bladder is distended with fluid and appears normal. The prostate is normal. No free fluid is seen within the pelvis. There is no pelvic lymphadenopathy. Bone windows demonstrate no suspicious lytic or blastic lesions. The visible osseous structures are intact. There are mild degenerative changes throughout the spine, greater at L5-S1 where they are moderate to severe. There is grade 1 anterolisthesis at L5-S1 with bilateral L5 pars defects. 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 COMPARISON: CT abdomen pelvis from 07/26/2019 FINDINGS: Chest: There is a left-sided aortic arch. The aorta and main pulmonary arteryare normal in course and caliber. A thin linear hypodense filling defect in the left brachiocephalic vein extending to the junction with thesuperior vena cava may represent a nonocclusive thrombus or flow artifact (series7 image 55). The heart size is normal. No pericardial effusion is present. No mediastinal, hilar, supraclavicular, or axillary lymphadenopathy isseen. The thyroid gland enhances homogenously. Patchy peripheral predominant groundglass opacities in the bilaterallungs likely represent infection. No pleural effusion or focal pleural thickening is identified. There is no evidence of pneumothorax. No suspicious pulmonary nodule is identified. The trachea is patent and midline. Abdomen/pelvis: The liver enhances homogenously. The gallbladder is normal without evidence of wall thickening, pericholecystic fluid, or gallstones. The intrahepatic and extrahepatic bile ducts are nondilated. The spleen is surgically absent. The pancreas and adrenal glands are normal. Focal cortical thinning in the right kidney may represent sequela of prior infection. Otherwise the kidneys enhance symmetrically. There is no evidence of renal calculus or hydronephrosis. The esophagus and stomach appear normal. There is colonic diverticulosis without evidence of diverticulitis. Otherwise the small bowel and large bowel are normal in caliber without evidence of wall thickening or obstruction. The appendix appears normal without appendicolith or surrounding inflammatory changes. No free air or free fluid isidentified within the abdomen. There is no abdominal lymphadenopathy. The abdominal aorta is normal in course and caliber. The urinary bladder is distended with fluid and appears normal. The prostate is normal. No free fluid is seen within the pelvis. There is no pelvic lymphadenopathy. Bone windows demonstrate no suspicious lytic or blastic lesions. The visible osseous structures are intact. There are mild degenerativechanges throughout the spine, greater at L5-S1 where they are moderate tosevere. There is grade 1 anterolisthesis at L5-S1 with bilateral L5 parsdefects. IMPRESSION: 1. Patchy, peripheral predominant groundglass opacities in the bilateral lungs likely represent infection, including possible atypical or viral etiologies in this patient with history of immune compromise. 2. A thin linear hypodense filling defect in the left brachiocephalicvein extending to the junction with the superior vena cava may represent nonocclusive thrombus or flow artifact. 3. No acute process identified in the abdomen or pelvis. Dictated by Love Rowland MD (regional vice president life sales). I, Dr. JOHN BLUM MD have personally reviewed and interpreted this examination/study. This report was electronically signed by JOHN BLUM MD on02/27/2020 7:01 AM . Katia Roque ADVERTISING SALES AGENT-[facility] CT ORDERABLES * CYTOMEGALOVIRUS (CMV) QUANTITATIVE PLASMA (02/26/2020 12:01 PM CDT) Only the most recent of8 resultswithin the time period is included. CMV Quant by PCR, Interp Not Detected Not Detected 02/28/2020 5:30 PM CDT [facility] Blood BLOOD SPECIMEN / Unknown Lab Venipuncture / Unknown 02/26/2020 12:01 PM CDT 02/26/2020 12:30 PM CDT Narrative [facility] - 02/28/2020 5:30 PM CDT The CMV DNA analysis utilized real-time PCR, and is reported as Not Detected, Detected (<50 IU/mL) [or Detected (<1.70 log IU/mL], 50 ? 156,000,000 IU/mL [or 1.70 to 8.19 log IU/mL], or >156,000,000 IU/mL [>8.19 log IU/mL]. The analytic sensitivity (LOD) of the assay is 31.20 IU/mL [1.49 log IU/mL] (100% of samples with this CMV/DNA level were detected). Linear range of the assay is 50 ? 156,000,000 IU/ml [or 1.70 to 8.19 log IU/mL]. The detection/quantitation of CMV DNA in plasma is based on the isolation of CMV DNA followed by real-time PCR in the presence of reference standard DNA. The standard ensures that DNA was isolated, and that no general significant inhibitors of the real-time PCR process were present. Absolute CMV values or breakpoints for symptomatic disease have not been established and appear to be different between patient populations and laboratories. ??Therefore, it is important to monitor patients and to follow increases and/or decreases in the level of CMV in multiple blood specimens. The analysis was performed using an [place] FDA approved test methodology (Bartholomew RealTime CMV). Katia Roque ADVERTISING SALES AGENT-FEEDER/FOLDER LAB - CHEMISTRY O RDERABLES [facility] [address] [place], [place] [address], [facility] [phone] * ISA-JUAN VIRUS QUANT BLOOD STL (02/26/2020 12:01 PM CDT) Pathologist [facility] EBV Quant by PCR, Interp Not Detected Not Detected 02/28/2020 2:27 PM CDT [facility] Specimen Type Plasma 02/28/2020 2:27 PM CDT [facility] Blood BLOOD SPECIMEN / Unknown Lab Venipuncture / Unknown 02/26/2020 12:01 PM CDT 02/26/2020 12:30 PM CDT Narrative [facility] - 02/28/2020 2:27 PM CDT DNA isolated from the plasma was analyzed in a qPCR assay to detect and quantify Isa-Juan DNA. An internal control is included to evaluate for PCR inhibition. The quantitative range of this assay is 500 IU/mL to 5,000,000 IU/mL. Values below 500 IU/mL will be reported as Detected (<500 IU/mL). ?? This test was developed and its performance characteristics determined by [facility]. ??It has not been cleared or approved by the U.S. Food and Drug Administration. ??The FDA has determined that such clearance or approval is not necessary. ??The test is used for clinical purposes. ??It should not be regarded as investigational or for research. ??This laboratory is certified under the Clinical Laboratory Improvement Amendments of 1988(CLIA-88) as qualified to perform high complexity clinical laboratory testing. Katia Roque ADVERTISING SALES AGENT-FEEDER/FOLDER LAB - CHEMISTRY O RDERABLES [facility] [address] [place] [address], [facility] [phone] * ADENOVIRUS PCR QUANTITATIVE (02/26/2020 12:01 PM CDT) Pathologist [facility] Adenovirus Quantitative Copy/mL <1,000 cpy/mL 03/03/2020 3:35 PM CDT [employer] [facility] ([facility]) Adenovirus Quantitative Source Blood 03/03/2020 3:35 PM CDT [facility] ([facility]) Adenovirus Quantitative Log Copy/mL <3.0 log cpy/mL 03/03/2020 3:35 PM CDT [facility] ([facility]) Interpretation Adenovirus Quantitative Not Detected Not Detected 03/03/2020 3:35 PM CDT [facility] [employer] [facility] ([facility]) Comment: INTERPRETIVE INFORMATION: Adenovirus, Quantitative PCR The quantitative range of this test is 3.0-7.0 log copies/mL (1,000-10,000,000 copies/mL). A negative result (less than 3.0 log copies/mL or less than 1,000 copies/mL) does not rule out the presence of PCR inhibitors in the patient specimen or Adenovirus DNA concentrations below the level of detection of the test. Inhibition may also lead to underestimation of viral quantitation. No international standard is currently available for calibration of this test. Caution should be taken when interpreting results generated by different test methodologies. Test developed and characteristics determined by [facility]. See Compliance Statement A: [facility] Performed by [facility], [facility] [place] [address] [email or web address], Toribio Elizondo MD, Lab. Director Blood BLOOD SPECIMEN / Unknown Lab Venipuncture / Unknown 02/26/2020 12:01 PM CDT 02/26/2020 12:30 PM CDT Katia Roque APRN-ERIKA LAB - SEROLOGY OR DERABLES [facility] ([facility]) [address] [place] [address], [facility] * CARDIAC EKG ORDER (10/27/2019 2:07 PM CDT) Only the most recent of2 resultswithin the time period is included. Narrative 10/27/2019 2:07 PM CDT Ordered by an unspecified provider. Scanned Document CARDIAC SERVICES ORD ERABLES * TRANSFUSE PLATELET PHERESIS UNIT(S) (10/27/2019 6:07 AM CDT) Saturnino Crawford MD NURSING - BLOOD PROD TRANSFUSION * (ABNORMAL) PLATELET COUNT AUTO (10/27/2019 6:03 AM CDT) Pathologist [facility] Platelet Count 60(L) 150 - 400 10? 3 /uL 10/27/2019 6:35 AM CDT [facility] Comment:Confirmed by repeat analysis. Blood BLOOD SPECIMEN / Unknown Venipuncture / Unknown 10/27/2019 6:03 AM CDT 10/27/2019 6:13 AM CDT Saturnino Crawford MD LAB - HEMATOLOGY ORD ERABLES [address] [phone] * TYPE + SCREEN PANEL (10/27/2019 12:29 AM CDT) Only the most recent of5 resultswithin the time period is included. Antibody Screen NEG 0 1:37 AM CDT [facility] ABO Rh A POS 10/27/2019 1:37 AM CDT [facility] Blood Bank BLOOD SPECIMEN / Unknown 10/27/2019 12:29 AM CDT 10/27/2019 12:30 AM CDT Saturnino Crawford MD LAB - BLOOD BANK ORD ERABLES Performing Organization Address City/[facility]/ZIP Co de Phone Number [facility] [address] [place], [place] [id number] [place] [address] * C DIFFICILE GD AG + TOXIN A+B (10/23/2019 6:08 AM CDT) GD Antigen Negative Negative, Invalid 10/23/2019 10:40 PM CDT [facility] C difficile Toxin A + B Negative Negative, Invalid 10/23/2019 10:40 PM CDT [facility] Interpretation C difficile Negative for toxigenic C. difficile Negative for toxigenic C. difficile 10/23/2019 10:40 PM CDT [facility] Stool STOOL SPECIMEN / Unknown Collection / Unknown 10/23/2019 6:08 AM CDT 10/23/2019 6:08 AM CDT Rafaela Salgado ADVERTISING SALES AGENT-FEEDER/FOLDER LAB - MICRO BIOLOGY ORDERABLES Performing Organization Address City/[facility]/ZIP Co de Phone Number [facility] [address] [phone] * VASCULAR LAB ORDER (09/28/2019 12:07 PM BUSINESS ADMINISTRATION PROGRAM CHAIR) Anatomical Region Laterality Modality Intravascular Ul trasound Narrative 09/28/2019 12:07 PM BUSINESS ADMINISTRATION PROGRAM CHAIR Ordered by an unspecified provider. Scanned Document VASCULAR LAB ORDERAB LES * VAS RIGHT VENOUS DUPLEX UE (09/27/2019 10:57 AM BUSINESS ADMINISTRATION PROGRAM CHAIR) Anatomical Region Laterality Modality Upper Extremity Intravascular Ul trasound 09/27/2019 10:2 5 AM BUSINESS ADMINISTRATION PROGRAM CHAIR Narrative Procedure Note Alonso Carreon MD - 10/01/2019 Tiffanie Mcpherson ADVERTISING SALES AGENT-FEEDER/FOLDER VASCULAR LAB OR DERABLES * FLOW CYTOMETRY CD34 COUNT BLOOD (09/21/2019 7:27 AM BUSINESS ADMINISTRATION PROGRAM CHAIR) Only the most recent of2 resultswithin the time period is included. Pathologist [facility] Reason for test B-cell lymphoma, unspecified B-cell lymphoma type, unspecified body region 09/21/2019 10:14 AM [facility] Client Specimen ID # [id number] 09/21/2019 10:14 AM [facility] Number of Markers 2 09/21/2019 10:14 AM [facility] Flow Cytometry Results Differential Result % Comment Total Viability 99.0 Lymph/Roberts/Gran Region Surface Marker Results % Absolute Count (cell/uL) CD34 0.08 73.260 CD45 96.93 88,763.648 09/21/2019 10:14 AM [facility] Flow Cytometry Interpretation Testing is technical only and does not require an interpretation of results. 09/21/2019 10:14 AM [facility] Disclaimer Test performed at [facility], [address] [place] [address], [facility]. This test was developed and its performance characteristics determined by the Flow Cytometry Laboratory. It has not been cleared by the [place] Food and Drug Administration (FDA). The FDA has determined that such clearance or approval is not necessary. This test is used for clinical purposes. It should not be regarded as investigational or for research. This laboratory is regulated under the Clinical Laboratory Improvement Amendments of 1998 (CLIA) as a qualified to perform high complexity clinical testing. 09/21/2019 10:14 AM [facility] Embedded Images 0 10:14 AM [facility] Blood BLOOD SPECIMEN / Unknown Venipuncture / Unknown 09/21/2019 7:27 AM [facility] 09/21/2019 8:15 AM [facility] PATH[facility] - 09/21/2019 7:00 AM Apollo Jha MD ? 09/22/2019 ??5:04 PM Cellular Therapy Collections Progress Note Marcello Guillen 09/21/2019 Diagnosis: 1. B-cell lymphoma, unspecified B-cell lymphoma type, unspecified body region ?? Protocol/Regimen: HPC Mobilization and Collection Interval History: 49 y.o. male with marginal zone lymphoma here for autologous hematopoietic progenitor collection #1. Patient reports some bone pain since he started taking Neupogen. The pain is mostly in his sternum and back. Pain is controlled with Tylenol and oxycodone. No pain this am. No F/C/N/V/D/COOPER/SOB. Allergies Allergen Reactions ? ? Adhesive Sensitivity Urticaria and Other ??Electrodes -- welps where stickers are Also, use paper tape Current Outpatient Medications Medication Sig Dispense Refill ? ? acetaminophen (TYLENOL) 325 MG tablet Take 2 tablets by mouth every 6 hours as needed for Fever or Pain Maximum allowable Acetaminophen amount = 4 Grams (4000 mg) ??/ 24 hours. (Patient not taking: Reported on 09/21/2019) ? acyclovir (ZOVIRAX) 400 MG tablet Take 1 tablet by mouth 2 times daily 60 tablet 11 ? ? BABY ASPIRIN PO Take 81 mg by mouth ? diclofenac sodium EC (VOLTAREN) 75 MG tablet Take 75 mg by mouth 2 times daily ? docusate sodium (COLACE) 100 MG capsule Take 1 capsule by mouth 2 times daily 60 capsule 0 ? ? enoxaparin (LOVENOX) injection Inject 40 mg subcutaneously once daily 30 syringe 2 ? ? escitalopram (LEXAPRO) 10 MG tablet Take 1 tablet by mouth once daily 30 tablet 0 ? ? ibuprofen (MOTRIN) 600 MG tablet Take 1 tablet by mouth every 6 hours (Patient taking differently: Take 200 mg by mouth every 6 hours ) ? Lansoprazole (PREVACID PO) Take by mouth as needed ? lidocaine-prilocaine (EMLA) 2.5-2.5 % cream Apply to port site 30-60 mins before use. ? ondansetron, disintegrating, (ZOFRAN ODT) 8 MG tablet Dissolve 1 tablet on top of tongue then swallow with saliva every 8 hours as needed for nausea or vomiting ? oxyCODONE, immediate release, (ROXICODONE) 5 MG tablet Take 1 tablet by mouth every 6 hours as needed for Pain 28 tablet 0 ? ? penicillin v potassium (VEETIDS) 250 MG tablet Take 1 tablet by mouth 2 times daily (Patient taking differently: Take 250 mg by mouth 2 times daily Took 500 mg additional per dentist instructions) 60 tablet 5 ? ? polyethylene glycol 3350 (MIRALAX) packet Take 17 g by mouth once daily ? prochlorperazine (COMPAZINE) 10 MG tablet Take 10 mg by mouth every 6 hours as needed ?? Current Facility-Administered Medications Medication Dose Route Frequency Provider Last Rate Last Dose ? ? 0.9% NaCl injection 20 mL ??20 mL Intracatheter PRN Tiffanie Mcpherson APRN-FEEDER/FOLDER ?? 20 mL at 09/21/19 1438 ? ? calcium gluconate 5 g in 300 mL NS ??5 g Intravenous PRN Tiffanie Mcpherson APRN-FEEDER/FOLDER ?? Stopped at 09/21/19 1350 ? ? heparin lock flush injection 300 Units ??300 Units Intravenous PRN Tiffanie Mcpherson APRN-FEEDER/FOLDER ?? 300 Units at 09/21/19 1352 Physical Exam Constitutional: Patient Vitals for the past 24 hrs: BP Temp Temp src Pulse Resp SpO2 Height Weight 09/21/19 1415 133/80 98.9 ??F Oral 94 18 98 % ? ? 09/21/19 1211 143/82 98.3 ??F Oral 88 18 97 % ? ? 09/21/19 1119 144/82 ? ? 88 18 98 % ? ? 09/21/19 1036 130/75 98.6 ??F Oral 93 18 99 % ? ? 09/21/19 0923 128/80 98.1 ??F Oral 86 18 97 % ? ? 09/21/19 0741 129/86 98.1 ??F Oral 97 18 97 % 1.715 m (5' 7.5 ) 117.5 kg (259 lb) General Appearance: No acute distress, comfortable in chair Head: No nasal congestion or discharge Skin: no rashes, multiple piercing's Eyes: anicteric: Chest: lungs clear to auscultation Heart: normal S1 and S2, no murmur Abdomen: soft, non-tender, +BS Extremities: no edema Access: L IJ triple lumen Altamirano catheter, no edema, erythema or tenderness Lab and/or Imaging Studies Recent Results (from the past 24 hour(s)) TYPE AND SCREEN Collection Time: 09/21/19 ??7:25 AM Result Value Ref Range Antibody Screen NEG ?? ABO Rh A POS ?? MAGNESIUM BLOOD Collection Time: 09/21/19 ??7:27 AM Result Value Ref Range Magnesium 1.8 1.6 - 2.6 mg/dL POTASSIUM BLOOD Collection Time: 09/21/19 ??7:27 AM Result Value Ref Range Potassium 4.1 3.5 - 4.5 mmol/L CBC W AUTO DIFFERENTIAL Collection Time: 09/21/19 ??7:27 AM Result Value Ref Range WBC 92.5 (HH) 3.5 - 10.5 10? 3 /uL RBC 4.26 (L) 4.30 - 5.70 10? 6 /uL Hemoglobin 12.6 (L) 13.5 - 17.5 g/dL Hematocrit 38.3 (L) 39.0 - 50.0 % MCV 89.9 81.0 - 97.0 fL MCH 29.6 28.0 - 34.0 pg MCHC 32.9 32.0 - 36.0 g/dL Platelet Count 303 150 - 400 10? 3 /uL RDW-SD 48.9 36.0 - 50.0 fL RDW-CV 14.9 (H) 11.2 - 14.8 % MPV 10.9 9.3 - 12.8 fL nRBC Absolute 0.14 (H) 0 10? 3 /uL nRBC Auto 0.2 (H) 0 /100 WBC CALCIUM IONIZED WHOLE BLOOD Collection Time: 09/21/19 ??7:27 AM Result Value Ref Range Ionized Calcium Whole Blood 1.19 mmol/L Adjusted Ionized Calcium 1.15 (L) 1.19 - 1.34 mmol/L pH Whole Blood 7.33 (L) 7.35 - 7.45 FLOW CYTOMETRY CD34 COUNT BLOOD Collection Time: 09/21/19 ??7:27 AM Result Value Ref Range Reason for test ?B-cell lymphoma, unspecified B-cell lymphoma type, unspecified body region Client Specimen ID # ?[id number] Number of Markers 2 ?? Flow Cytometry Results ? Differential Result % Comment Total Viability ??99.0 ?? Lymph/Roberts/Gran Region Surface Marker Results % Absolute Count (cell/uL) CD34 0.08 73.260 CD45 96.93 88,763.648 Flow Cytometry Interpretation ?Testing is technical only and does not require an interpretation of results. Disclaimer ?Test performed at [facility], [address] [place] [address], [id number]. This test was developed and its performance characteristics determined by the Flow Cytometry Laboratory. It has not been cleared by the [place] Food and Drug Administration (FDA). The FDA has determined that such clearance or approval is not necessary. This test is used for clinical purposes. It should not be regarded as investigational or for research. This laboratory is regulated under the Clinical Laboratory Improvement Amendments of 1998 (CLIA) as a qualified to perform high complexity clinical testing. Embedded Images ?? DIFFERENTIAL MANUAL Collection Time: 09/21/19 ??7:27 AM Result Value Ref Range WBC (corrected for NRBC) 92.5 10? 3 /uL Total Cell Count 100 ?? Neutrophils Absolute Manual 69.38 (H) 1.60 - 7.00 10? 3 /uL Lymphocyte Absolute 3.70 (H) 0.80 - 2.90 10? 3 /uL Monocytes Absolute 9.25 (H) 0.14 - 0.66 10? 3 /uL Eosinophils Absolute Manual 4.63 (H) 0.00 - 0.22 10? 3 /uL Basophil Absolute Manual 1.85 (H) 0.00 - 0.06 10? 3 /uL Band % Manual 18 (H) 0 - 10 % Neutrophil % Manual 57 30 - 60 % Lymphocyte % 4 (L) 20 - 45 % Monocytes % Manual 10 2 - 10 % Eosinophils % 5 1 - 6 % Basophils % Relative 2 0 - 3 % Atypical Lymphocyte % Manual 1 (H) 0 % Metamyelocyte % Manual 1 (H) 0 % Myelocytes % Manual 2 (H) 0 % nRBC Manual 1 (H) 0 /100 WBC Platelet Estimate Adequate Adequate Polychromasia 1+ (Abnormal) None Ovalocytes Occasional (Abnormal) None [place] Cells 1+ (Abnormal) None Tear Drop Cells Occasional (Abnormal) None Toxic Granulation 1+ (Abnormal) None Dohle Bodies 1+ (Abnormal) None CBC W AUTO DIFFERENTIAL Collection Time: 09/21/19 ??2:13 PM Result Value Ref Range WBC 66.1 (HH) 3.5 - 10.5 10? 3 /uL RBC 3.65 (L) 4.30 - 5.70 10? 6 /uL Hemoglobin 11.0 (L) 13.5 - 17.5 g/dL Hematocrit 32.7 (L) 39.0 - 50.0 % MCV 89.6 81.0 - 97.0 fL MCH 30.1 28.0 - 34.0 pg MCHC 33.6 32.0 - 36.0 g/dL Platelet Count 135 (L) 150 - 400 10? 3 /uL RDW-SD 49.0 36.0 - 50.0 fL RDW-CV 14.8 11.2 - 14.8 % MPV 9.3 9.3 - 12.8 fL nRBC Absolute 0.12 (H) 0 10? 3 /uL nRBC Auto 0.2 (H) 0 /100 WBC DIFFERENTIAL MANUAL Collection Time: 09/21/19 ??2:13 PM Result Value Ref Range WBC (corrected for NRBC) 66.1 10? 3 /uL Total Cell Count 100 ?? Neutrophils Absolute Manual 56.19 (H) 1.60 - 7.00 10? 3 /uL Lymphocyte Absolute 0.66 (L) 0.80 - 2.90 10? 3 /uL Monocytes Absolute 4.63 (H) 0.14 - 0.66 10? 3 /uL Eosinophils Absolute Manual 3.31 (H) 0.00 - 0.22 10? 3 /uL Band % Manual 28 (H) 0 - 10 % Neutrophil % Manual 57 30 - 60 % Lymphocyte % 1 (L) 20 - 45 % Monocytes % Manual 7 2 - 10 % Eosinophils % 5 1 - 6 % Metamyelocyte % Manual 2 (H) 0 % Platelet Estimate Slightly Decreased (Abnormal) Adequate Target Cells 1+ (Abnormal) None Dohle Bodies Occasional (Abnormal) None Procedures Leukapheresis Assessment and Plan Marcello Guillen is a 49 year old y.o. male with marginal zone lymphoma who presents for peripheral blood hematopoietic progenitor collection #1. This is Day 5 of his Neupogen. ?? Catheter placement was confirmed per IR note. No changes were noted in Donor History Questionnaire. Donor was stable going into collection. Pre collection Hct and Plt levels were acceptable. Post collection Hct=32.7, Gec=735 . The collection was well tolerated. The goal for this procedure ??is 2-4 x 10e6 CD34 cells/kg. Processed volume during procedure was [id number]. Yield of collection was 10.4x10e6 CD34/kg. Goal was reached. Apollo Garcia MD, PhD Bill Ferrera MD LAB - PATHOLOGY/CY TOLOGY ORDERABLES [facility] [address] [place], [place] [id number] [place] [address] * (ABNORMAL) CALCIUM IONIZED WHOLE BLOOD (09/21/2019 7:27 AM [facility]) Only the most recent of2 resultswithin the time period is included. Ionized Calcium Whole Blood 1.19 mmol/L 09/21/2019 7:57 AM [facility] Adjusted Ionized Calcium 1.15(L) 1.19 - 1.34 mmol/L 09/21/2019 7:57 AM [facility] pH Whole Blood 7.33(L) 7.35 - 7.45 09/21/2019 7:57 AM [facility] Blood WHOLE BLOOD SPECIMEN / Unknown Venipuncture / Unknown 09/21/2019 7:27 AM [facility] 09/21/2019 7:39 AM [facility] - 09/21/2019 7:00 AM BUSINESS ADMINISTRATION PROGRAM CHAIR Apollo Garcia MD ? 09/22/2019 ??5:04 PM Cellular Therapy Collections Progress Note Marcello Guillen 09/21/2019 Diagnosis: 1. B-cell lymphoma, unspecified B-cell lymphoma type, unspecified body region ?? Protocol/Regimen: HPC Mobilization and Collection Interval History: 49 y.o. male with marginal zone lymphoma here for autologous hematopoietic progenitor collection #1. Patient reports some bone pain since he started taking Neupogen. The pain is mostly in his sternum and back. Pain is controlled with Tylenol and oxycodone. No pain this am. No F/C/N/V/D/COOPER/SOB. Allergies Allergen Reactions ? ? Adhesive Sensitivity Urticaria and Other ??Electrodes -- welps where stickers are Also, use paper tape Current Outpatient Medications Medication Sig Dispense Refill ? ? acetaminophen (TYLENOL) 325 MG tablet Take 2 tablets by mouth every 6 hours as needed for Fever or Pain Maximum allowable Acetaminophen amount = 4 Grams (4000 mg) ??/ 24 hours. (Patient not taking: Reported on 09/21/2019) ? acyclovir (ZOVIRAX) 400 MG tablet Take 1 tablet by mouth 2 times daily 60 tablet 11 ? ? BABY ASPIRIN PO Take 81 mg by mouth ? diclofenac sodium EC (VOLTAREN) 75 MG tablet Take 75 mg by mouth 2 times daily ? docusate sodium (COLACE) 100 MG capsule Take 1 capsule by mouth 2 times daily 60 capsule 0 ? ? enoxaparin (LOVENOX) injection Inject 40 mg subcutaneously once daily 30 syringe 2 ? ? escitalopram (LEXAPRO) 10 MG tablet Take 1 tablet by mouth once daily 30 tablet 0 ? ? ibuprofen (MOTRIN) 600 MG tablet Take 1 tablet by mouth every 6 hours (Patient taking differently: Take 200 mg by mouth every 6 hours ) ? Lansoprazole (PREVACID PO) Take by mouth as needed ? lidocaine-prilocaine (EMLA) 2.5-2.5 % cream Apply to port site 30-60 mins before use. ? ondansetron, disintegrating, (ZOFRAN ODT) 8 MG tablet Dissolve 1 tablet on top of tongue then swallow with saliva every 8 hours as needed for nausea or vomiting ? oxyCODONE, immediate release, (ROXICODONE) 5 MG tablet Take 1 tablet by mouth every 6 hours as needed for Pain 28 tablet 0 ? ? penicillin v potassium (VEETIDS) 250 MG tablet Take 1 tablet by mouth 2 times daily (Patient taking differently: Take 250 mg by mouth 2 times daily Took 500 mg additional per dentist instructions) 60 tablet 5 ? ? polyethylene glycol 3350 (MIRALAX) packet Take 17 g by mouth once daily ? prochlorperazine (COMPAZINE) 10 MG tablet Take 10 mg by mouth every 6 hours as needed ?? Current Facility-Administered Medications Medication Dose Route Frequency Provider Last Rate Last Dose ? ? 0.9% NaCl injection 20 mL ??20 mL Intracatheter PRN Tiffanie Mcpherson APRN-FEEDER/FOLDER ?? 20 mL at 09/21/19 1438 ? ? calcium gluconate 5 g in 300 mL NS ??5 g Intravenous PRN Tiffanie Mcpherson APRN-ERIKA ?? Stopped at 09/21/19 1350 ? ? heparin lock flush injection 300 Units ??300 Units Intravenous PRN Tiffanie Mcpherson APRN-FEEDER/FOLDER ?? 300 Units at 09/21/19 1352 Physical Exam Constitutional: Patient Vitals for the past 24 hrs: BP Temp Temp src Pulse Resp SpO2 Height Weight 09/21/19 1415 133/80 98.9 ??F Oral 94 18 98 % ? ? 09/21/19 1211 143/82 98.3 ??F Oral 88 18 97 % ? ? 09/21/19 1119 144/82 ? ? 88 18 98 % ? ? 09/21/19 1036 130/75 98.6 ??F Oral 93 18 99 % ? ? 09/21/19 0923 128/80 98.1 ??F Oral 86 18 97 % ? ? 09/21/19 0741 129/86 98.1 ??F Oral 97 18 97 % 1.715 m (5' 7.5 ) 117.5 kg (259 lb) General Appearance: No acute distress, comfortable in chair Head: No nasal congestion or discharge Skin: no rashes, multiple piercing's Eyes: anicteric: Chest: lungs clear to auscultation Heart: normal S1 and S2, no murmur Abdomen: soft, non-tender, +BS Extremities: no edema Access: L IJ triple lumen Altamirano catheter, no edema, erythema or tenderness Lab and/or Imaging Studies Recent Results (from the past 24 hour(s)) TYPE AND SCREEN Collection Time: 09/21/19 ??7:25 AM Result Value Ref Range Antibody Screen NEG ?? ABO Rh A POS ?? MAGNESIUM BLOOD Collection Time: 09/21/19 ??7:27 AM Result Value Ref Range Magnesium 1.8 1.6 - 2.6 mg/dL POTASSIUM BLOOD Collection Time: 09/21/19 ??7:27 AM Result Value Ref Range Potassium 4.1 3.5 - 4.5 mmol/L CBC W AUTO DIFFERENTIAL Collection Time: 09/21/19 ??7:27 AM Result Value Ref Range WBC 92.5 (HH) 3.5 - 10.5 10? 3 /uL RBC 4.26 (L) 4.30 - 5.70 10? 6 /uL Hemoglobin 12.6 (L) 13.5 - 17.5 g/dL Hematocrit 38.3 (L) 39.0 - 50.0 % MCV 89.9 81.0 - 97.0 fL MCH 29.6 28.0 - 34.0 pg MCHC 32.9 32.0 - 36.0 g/dL Platelet Count 303 150 - 400 10? 3 /uL RDW-SD 48.9 36.0 - 50.0 fL RDW-CV 14.9 (H) 11.2 - 14.8 % MPV 10.9 9.3 - 12.8 fL nRBC Absolute 0.14 (H) 0 10? 3 /uL nRBC Auto 0.2 (H) 0 /100 WBC CALCIUM IONIZED WHOLE BLOOD Collection Time: 09/21/19 ??7:27 AM Result Value Ref Range Ionized Calcium Whole Blood 1.19 mmol/L Adjusted Ionized Calcium 1.15 (L) 1.19 - 1.34 mmol/L pH Whole Blood 7.33 (L) 7.35 - 7.45 FLOW CYTOMETRY CD34 COUNT BLOOD Collection Time: 09/21/19 ??7:27 AM Result Value Ref Range Reason for test ?B-cell lymphoma, unspecified B-cell lymphoma type, unspecified body region Client Specimen ID # ?[id number] Number of Markers 2 ?? Flow Cytometry Results ? Differential Result % Comment Total Viability ??99.0 ?? Lymph/Roberts/Gran Region Surface Marker Results % Absolute Count (cell/uL) CD34 0.08 73.260 CD45 96.93 88,763.648 Flow Cytometry Interpretation ?Testing is technical only and does not require an interpretation of results. Disclaimer ?Test performed at [facility], [address] [place] [address], [id number]. This test was developed and its performance characteristics determined by the Flow Cytometry Laboratory. It has not been cleared by the [place] Food and Drug Administration (FDA). The FDA has determined that such clearance or approval is not necessary. This test is used for clinical purposes. It should not be regarded as investigational or for research. This laboratory is regulated under the Clinical Laboratory Improvement Amendments of 1998 (CLIA) as a qualified to perform high complexity clinical testing. Embedded Images ?? DIFFERENTIAL MANUAL Collection Time: 09/21/19 ??7:27 AM Result Value Ref Range WBC (corrected for NRBC) 92.5 10? 3 /uL Total Cell Count 100 ?? Neutrophils Absolute Manual 69.38 (H) 1.60 - 7.00 10? 3 /uL Lymphocyte Absolute 3.70 (H) 0.80 - 2.90 10? 3 /uL Monocytes Absolute 9.25 (H) 0.14 - 0.66 10? 3 /uL Eosinophils Absolute Manual 4.63 (H) 0.00 - 0.22 10? 3 /uL Basophil Absolute Manual 1.85 (H) 0.00 - 0.06 10? 3 /uL Band % Manual 18 (H) 0 - 10 % Neutrophil % Manual 57 30 - 60 % Lymphocyte % 4 (L) 20 - 45 % Monocytes % Manual 10 2 - 10 % Eosinophils % 5 1 - 6 % Basophils % Relative 2 0 - 3 % Atypical Lymphocyte % Manual 1 (H) 0 % Metamyelocyte % Manual 1 (H) 0 % Myelocytes % Manual 2 (H) 0 % nRBC Manual 1 (H) 0 /100 WBC Platelet Estimate Adequate Adequate Polychromasia 1+ (Abnormal) None Ovalocytes Occasional (Abnormal) None [place] Cells 1+ (Abnormal) None Tear Drop Cells Occasional (Abnormal) None Toxic Granulation 1+ (Abnormal) None Dohle Bodies 1+ (Abnormal) None CBC W AUTO DIFFERENTIAL Collection Time: 09/21/19 ??2:13 PM Result Value Ref Range WBC 66.1 (HH) 3.5 - 10.5 10? 3 /uL RBC 3.65 (L) 4.30 - 5.70 10? 6 /uL Hemoglobin 11.0 (L) 13.5 - 17.5 g/dL Hematocrit 32.7 (L) 39.0 - 50.0 % MCV 89.6 81.0 - 97.0 fL MCH 30.1 28.0 - 34.0 pg MCHC 33.6 32.0 - 36.0 g/dL Platelet Count 135 (L) 150 - 400 10? 3 /uL RDW-SD 49.0 36.0 - 50.0 fL RDW-CV 14.8 11.2 - 14.8 % MPV 9.3 9.3 - 12.8 fL nRBC Absolute 0.12 (H) 0 10? 3 /uL nRBC Auto 0.2 (H) 0 /100 WBC DIFFERENTIAL MANUAL Collection Time: 09/21/19 ??2:13 PM Result Value Ref Range WBC (corrected for NRBC) 66.1 10? 3 /uL Total Cell Count 100 ?? Neutrophils Absolute Manual 56.19 (H) 1.60 - 7.00 10? 3 /uL Lymphocyte Absolute 0.66 (L) 0.80 - 2.90 10? 3 /uL Monocytes Absolute 4.63 (H) 0.14 - 0.66 10? 3 /uL Eosinophils Absolute Manual 3.31 (H) 0.00 - 0.22 10? 3 /uL Band % Manual 28 (H) 0 - 10 % Neutrophil % Manual 57 30 - 60 % Lymphocyte % 1 (L) 20 - 45 % Monocytes % Manual 7 2 - 10 % Eosinophils % 5 1 - 6 % Metamyelocyte % Manual 2 (H) 0 % Platelet Estimate Slightly Decreased (Abnormal) Adequate Target Cells 1+ (Abnormal) None Dohle Bodies Occasional (Abnormal) None Procedures Leukapheresis Assessment and Plan Marcello Guillen is a 49 year old y.o. male with marginal zone lymphoma who presents for peripheral blood hematopoietic progenitor collection #1. This is Day 5 of his Neupogen. ?? Catheter placement was confirmed per IR note. No changes were noted in Donor History Questionnaire. Donor was stable going into collection. Pre collection Hct and Plt levels were acceptable. Post collection Hct=32.7, Lbo=870 . The collection was well tolerated. The goal for this procedure ??is 2-4 x 10e6 CD34 cells/kg. Processed volume during procedure was [id number]. Yield of collection was 10.4x10e6 CD34/kg. Goal was reached. Apollo Garcia MD, PhD Bill Ferrera MD LAB - CHEMISTRY OR DERABLES [address] [phone] * POTASSIUM BLOOD (09/21/2019 7:27 AM BUSINESS ADMINISTRATION PROGRAM CHAIR) Only the most recent of2 resultswithin the time period is included. Potassium 4.1 3.5 - 4.5 mmol/L 09/21/2019 7:57 AM [facility] Blood BLOOD SPECIMEN / Unknown Venipuncture / Unknown 09/21/2019 7:27 AM BUSINESS ADMINISTRATION PROGRAM CHAIR 09/21/2019 7:39 AM BUSINESS ADMINISTRATION PROGRAM CHAIR Narrative [facility] - 09/21/2019 7:00 AM BUSINESS ADMINISTRATION PROGRAM CHAIR Apollo Garcia MD ? 09/22/2019 ??5:04 PM Cellular Therapy Collections Progress Note Marcello Guillen 09/21/2019 Diagnosis: 1. B-cell lymphoma, unspecified B-cell lymphoma type, unspecified body region ?? Protocol/Regimen: HPC Mobilization and Collection Interval History: 49 y.o. male with marginal zone lymphoma here for autologous hematopoietic progenitor collection #1. Patient reports some bone pain since he started taking Neupogen. The pain is mostly in his sternum and back. Pain is controlled with Tylenol and oxycodone. No pain this am. No F/C/N/V/D/COOPER/SOB. Allergies Allergen Reactions ? ? Adhesive Sensitivity Urticaria and Other ??Electrodes -- welps where stickers are Also, use paper tape Current Outpatient Medications Medication Sig Dispense Refill ? ? acetaminophen (TYLENOL) 325 MG tablet Take 2 tablets by mouth every 6 hours as needed for Fever or Pain Maximum allowable Acetaminophen amount = 4 Grams (4000 mg) ??/ 24 hours. (Patient not taking: Reported on 09/21/2019) ? acyclovir (ZOVIRAX) 400 MG tablet Take 1 tablet by mouth 2 times daily 60 tablet 11 ? ? BABY ASPIRIN PO Take 81 mg by mouth ? diclofenac sodium EC (VOLTAREN) 75 MG tablet Take 75 mg by mouth 2 times daily ? docusate sodium (COLACE) 100 MG capsule Take 1 capsule by mouth 2 times daily 60 capsule 0 ? ? enoxaparin (LOVENOX) injection Inject 40 mg subcutaneously once daily 30 syringe 2 ? ? escitalopram (LEXAPRO) 10 MG tablet Take 1 tablet by mouth once daily 30 tablet 0 ? ? ibuprofen (MOTRIN) 600 MG tablet Take 1 tablet by mouth every 6 hours (Patient taking differently: Take 200 mg by mouth every 6 hours ) ? Lansoprazole (PREVACID PO) Take by mouth as needed ? lidocaine-prilocaine (EMLA) 2.5-2.5 % cream Apply to port site 30-60 mins before use. ? ondansetron, disintegrating, (ZOFRAN ODT) 8 MG tablet Dissolve 1 tablet on top of tongue then swallow with saliva every 8 hours as needed for nausea or vomiting ? oxyCODONE, immediate release, (ROXICODONE) 5 MG tablet Take 1 tablet by mouth every 6 hours as needed for Pain 28 tablet 0 ? ? penicillin v potassium (VEETIDS) 250 MG tablet Take 1 tablet by mouth 2 times daily (Patient taking differently: Take 250 mg by mouth 2 times daily Took 500 mg additional per dentist instructions) 60 tablet 5 ? ? polyethylene glycol 3350 (MIRALAX) packet Take 17 g by mouth once daily ? prochlorperazine (COMPAZINE) 10 MG tablet Take 10 mg by mouth every 6 hours as needed ?? Current Facility-Administered Medications Medication Dose Route Frequency Provider Last Rate Last Dose ? ? 0.9% NaCl injection 20 mL ??20 mL Intracatheter PRN Tiffanie Mcpherson APRN-CNP ?? 20 mL at 09/21/19 1438 ? ? calcium gluconate 5 g in 300 mL NS ??5 g Intravenous PRN Tiffanie Mcpherson APRN-FEEDER/FOLDER ?? Stopped at 09/21/19 1350 ? ? heparin lock flush injection 300 Units ??300 Units Intravenous PRN Tiffanie Mcpherson APRN-FEEDER/FOLDER ?? 300 Units at 09/21/19 1352 Physical Exam Constitutional: Patient Vitals for the past 24 hrs: BP Temp Temp src Pulse Resp SpO2 Height Weight 09/21/19 1415 133/80 98.9 ??F Oral 94 18 98 % ? ? 09/21/19 1211 143/82 98.3 ??F Oral 88 18 97 % ? ? 09/21/19 1119 144/82 ? ? 88 18 98 % ? ? 09/21/19 1036 130/75 98.6 ??F Oral 93 18 99 % ? ? 09/21/19 0923 128/80 98.1 ??F Oral 86 18 97 % ? ? 09/21/19 0741 129/86 98.1 ??F Oral 97 18 97 % 1.715 m (5' 7.5 ) 117.5 kg (259 lb) General Appearance: No acute distress, comfortable in chair Head: No nasal congestion or discharge Skin: no rashes, multiple piercing's Eyes: anicteric: Chest: lungs clear to auscultation Heart: normal S1 and S2, no murmur Abdomen: soft, non-tender, +BS Extremities: no edema Access: L IJ triple lumen Altamirano catheter, no edema, erythema or tenderness Lab and/or Imaging Studies Recent Results (from the past 24 hour(s)) TYPE AND SCREEN Collection Time: 09/21/19 ??7:25 AM Result Value Ref Range Antibody Screen NEG ?? ABO Rh A POS ?? MAGNESIUM BLOOD Collection Time: 09/21/19 ??7:27 AM Result Value Ref Range Magnesium 1.8 1.6 - 2.6 mg/dL POTASSIUM BLOOD Collection Time: 09/21/19 ??7:27 AM Result Value Ref Range Potassium 4.1 3.5 - 4.5 mmol/L CBC W AUTO DIFFERENTIAL Collection Time: 09/21/19 ??7:27 AM Result Value Ref Range WBC 92.5 (HH) 3.5 - 10.5 10? 3 /uL RBC 4.26 (L) 4.30 - 5.70 10? 6 /uL Hemoglobin 12.6 (L) 13.5 - 17.5 g/dL Hematocrit 38.3 (L) 39.0 - 50.0 % MCV 89.9 81.0 - 97.0 fL MCH 29.6 28.0 - 34.0 pg MCHC 32.9 32.0 - 36.0 g/dL Platelet Count 303 150 - 400 10? 3 /uL RDW-SD 48.9 36.0 - 50.0 fL RDW-CV 14.9 (H) 11.2 - 14.8 % MPV 10.9 9.3 - 12.8 fL nRBC Absolute 0.14 (H) 0 10? 3 /uL nRBC Auto 0.2 (H) 0 /100 WBC CALCIUM IONIZED WHOLE BLOOD Collection Time: 09/21/19 ??7:27 AM Result Value Ref Range Ionized Calcium Whole Blood 1.19 mmol/L Adjusted Ionized Calcium 1.15 (L) 1.19 - 1.34 mmol/L pH Whole Blood 7.33 (L) 7.35 - 7.45 FLOW CYTOMETRY CD34 COUNT BLOOD Collection Time: 09/21/19 ??7:27 AM Result Value Ref Range Reason for test ?B-cell lymphoma, unspecified B-cell lymphoma type, unspecified body region Client Specimen ID # ?[id number] Number of Markers 2 ?? Flow Cytometry Results ? Differential Result % Comment Total Viability ??99.0 ?? Lymph/Roberts/Gran Region Surface Marker Results % Absolute Count (cell/uL) CD34 0.08 73.260 CD45 96.93 88,763.648 Flow Cytometry Interpretation ?Testing is technical only and does not require an interpretation of results. Disclaimer ?Test performed at [facility], [address], [place], [place], [address]. This test was developed and its performance characteristics determined by the Flow Cytometry Laboratory. It has not been cleared by the [place] Food and Drug Administration (FDA). The FDA has determined that such clearance or approval is not necessary. This test is used for clinical purposes. It should not be regarded as investigational or for research. This laboratory is regulated under the Clinical Laboratory Improvement Amendments of 1998 (CLIA) as a qualified to perform high complexity clinical testing. Embedded Images ?? DIFFERENTIAL MANUAL Collection Time: 09/21/19 ??7:27 AM Result Value Ref Range WBC (corrected for NRBC) 92.5 10? 3 /uL Total Cell Count 100 ?? Neutrophils Absolute Manual 69.38 (H) 1.60 - 7.00 10? 3 /uL Lymphocyte Absolute 3.70 (H) 0.80 - 2.90 10? 3 /uL Monocytes Absolute 9.25 (H) 0.14 - 0.66 10? 3 /uL Eosinophils Absolute Manual 4.63 (H) 0.00 - 0.22 10? 3 /uL Basophil Absolute Manual 1.85 (H) 0.00 - 0.06 10? 3 /uL Band % Manual 18 (H) 0 - 10 % Neutrophil % Manual 57 30 - 60 % Lymphocyte % 4 (L) 20 - 45 % Monocytes % Manual 10 2 - 10 % Eosinophils % 5 1 - 6 % Basophils % Relative 2 0 - 3 % Atypical Lymphocyte % Manual 1 (H) 0 % Metamyelocyte % Manual 1 (H) 0 % Myelocytes % Manual 2 (H) 0 % nRBC Manual 1 (H) 0 /100 WBC Platelet Estimate Adequate Adequate Polychromasia 1+ (Abnormal) None Ovalocytes Occasional (Abnormal) None [place] Cells 1+ (Abnormal) None Tear Drop Cells Occasional (Abnormal) None Toxic Granulation 1+ (Abnormal) None Dohle Bodies 1+ (Abnormal) None CBC W AUTO DIFFERENTIAL Collection Time: 09/21/19 ??2:13 PM Result Value Ref Range WBC 66.1 (HH) 3.5 - 10.5 10? 3 /uL RBC 3.65 (L) 4.30 - 5.70 10? 6 /uL Hemoglobin 11.0 (L) 13.5 - 17.5 g/dL Hematocrit 32.7 (L) 39.0 - 50.0 % MCV 89.6 81.0 - 97.0 fL MCH 30.1 28.0 - 34.0 pg MCHC 33.6 32.0 - 36.0 g/dL Platelet Count 135 (L) 150 - 400 10? 3 /uL RDW-SD 49.0 36.0 - 50.0 fL RDW-CV 14.8 11.2 - 14.8 % MPV 9.3 9.3 - 12.8 fL nRBC Absolute 0.12 (H) 0 10? 3 /uL nRBC Auto 0.2 (H) 0 /100 WBC DIFFERENTIAL MANUAL Collection Time: 09/21/19 ??2:13 PM Result Value Ref Range WBC (corrected for NRBC) 66.1 10? 3 /uL Total Cell Count 100 ?? Neutrophils Absolute Manual 56.19 (H) 1.60 - 7.00 10? 3 /uL Lymphocyte Absolute 0.66 (L) 0.80 - 2.90 10? 3 /uL Monocytes Absolute 4.63 (H) 0.14 - 0.66 10? 3 /uL Eosinophils Absolute Manual 3.31 (H) 0.00 - 0.22 10? 3 /uL Band % Manual 28 (H) 0 - 10 % Neutrophil % Manual 57 30 - 60 % Lymphocyte % 1 (L) 20 - 45 % Monocytes % Manual 7 2 - 10 % Eosinophils % 5 1 - 6 % Metamyelocyte % Manual 2 (H) 0 % Platelet Estimate Slightly Decreased (Abnormal) Adequate Target Cells 1+ (Abnormal) None Dohle Bodies Occasional (Abnormal) None Procedures Leukapheresis Assessment and Plan Marcello Guillen is a 49 year old y.o. male with marginal zone lymphoma who presents for peripheral blood hematopoietic progenitor collection #1. This is Day 5 of his Neupogen. ?? Catheter placement was confirmed per IR note. No changes were noted in Donor History Questionnaire. Donor was stable going into collection. Pre collection Hct and Plt levels were acceptable. Post collection Hct=32.7, Kcd=505 . The collection was well tolerated. The goal for this procedure ??is 2-4 x 10e6 CD34 cells/kg. Processed volume during procedure was [id number]. Yield of collection was 10.4x10e6 CD34/kg. Goal was reached. Apollo Babic MD, PhD Tiffanie Mcpherson ADVERTISING SALES AGENT-FEEDER/FOLDER LAB - CHEMISTRY ORDERABLES [facility] [address] [place] [address], [facility] [phone] * COLLECT/PROCESS: AUTO-HPC APHERESIS (09/21/2019 7:00 AM BUSINESS ADMINISTRATION PROGRAM CHAIR) BLOOD SPECIMEN / Unknown Narrative [facility] - 09/21/2019 7:00 AM BUSINESS ADMINISTRATION PROGRAM CHAIR Apollo Garcia MD ? 09/22/2019 ??5:04 PM Cellular Therapy Collections Progress Note Marcello Guillen 09/21/2019 Diagnosis: 1. B-cell lymphoma, unspecified B-cell lymphoma type, unspecified body region ?? Protocol/Regimen: HPC Mobilization and Collection Interval History: 49 y.o. male with marginal zone lymphoma here for autologous hematopoietic progenitor collection #1. Patient reports some bone pain since he started taking Neupogen. The pain is mostly in his sternum and back. Pain is controlled with Tylenol and oxycodone. No pain this am. No F/C/N/V/D/COOPER/SOB. Allergies Allergen Reactions ? ? Adhesive Sensitivity Urticaria and Other ??Electrodes -- welps where stickers are Also, use paper tape Current Outpatient Medications Medication Sig Dispense Refill ? ? acetaminophen (TYLENOL) 325 MG tablet Take 2 tablets by mouth every 6 hours as needed for Fever or Pain Maximum allowable Acetaminophen amount = 4 Grams (4000 mg) ??/ 24 hours. (Patient not taking: Reported on 09/21/2019) ? acyclovir (ZOVIRAX) 400 MG tablet Take 1 tablet by mouth 2 times daily 60 tablet 11 ? ? BABY ASPIRIN PO Take 81 mg by mouth ? diclofenac sodium EC (VOLTAREN) 75 MG tablet Take 75 mg by mouth 2 times daily ? docusate sodium (COLACE) 100 MG capsule Take 1 capsule by mouth 2 times daily 60 capsule 0 ? ? enoxaparin (LOVENOX) injection Inject 40 mg subcutaneously once daily 30 syringe 2 ? ? escitalopram (LEXAPRO) 10 MG tablet Take 1 tablet by mouth once daily 30 tablet 0 ? ? ibuprofen (MOTRIN) 600 MG tablet Take 1 tablet by mouth every 6 hours (Patient taking differently: Take 200 mg by mouth every 6 hours ) ? Lansoprazole (PREVACID PO) Take by mouth as needed ? lidocaine-prilocaine (EMLA) 2.5-2.5 % cream Apply to port site 30-60 mins before use. ? ondansetron, disintegrating, (ZOFRAN ODT) 8 MG tablet Dissolve 1 tablet on top of tongue then swallow with saliva every 8 hours as needed for nausea or vomiting ? oxyCODONE, immediate release, (ROXICODONE) 5 MG tablet Take 1 tablet by mouth every 6 hours as needed for Pain 28 tablet 0 ? ? penicillin v potassium (VEETIDS) 250 MG tablet Take 1 tablet by mouth 2 times daily (Patient taking differently: Take 250 mg by mouth 2 times daily Took 500 mg additional per dentist instructions) 60 tablet 5 ? ? polyethylene glycol 3350 (MIRALAX) packet Take 17 g by mouth once daily ? prochlorperazine (COMPAZINE) 10 MG tablet Take 10 mg by mouth every 6 hours as needed ?? Current Facility-Administered Medications Medication Dose Route Frequency Provider Last Rate Last Dose ? ? 0.9% NaCl injection 20 mL ??20 mL Intracatheter PRN Tiffanie Mcpherson APRN-FEEDER/FOLDER ?? 20 mL at 09/21/19 1438 ? ? calcium gluconate 5 g in 300 mL NS ??5 g Intravenous PRN Tiffanie Mcpherson APRN-FEEDER/FOLDER ?? Stopped at 09/21/19 1350 ? ? heparin lock flush injection 300 Units ??300 Units Intravenous PRN Tiffanie Mcpherson APRN-FEEDER/FOLDER ?? 300 Units at 09/21/19 1352 Physical Exam Constitutional: Patient Vitals for the past 24 hrs: BP Temp Temp src Pulse Resp SpO2 Height Weight 09/21/19 1415 133/80 98.9 ??F Oral 94 18 98 % ? ? 09/21/19 1211 143/82 98.3 ??F Oral 88 18 97 % ? ? 09/21/19 1119 144/82 ? ? 88 18 98 % ? ? 09/21/19 1036 130/75 98.6 ??F Oral 93 18 99 % ? ? 09/21/19 0923 128/80 98.1 ??F Oral 86 18 97 % ? ? 09/21/19 0741 129/86 98.1 ??F Oral 97 18 97 % 1.715 m (5' 7.5 ) 117.5 kg (259 lb) General Appearance: No acute distress, comfortable in chair Head: No nasal congestion or discharge Skin: no rashes, multiple piercing's Eyes: anicteric: Chest: lungs clear to auscultation Heart: normal S1 and S2, no murmur Abdomen: soft, non-tender, +BS Extremities: no edema Access: L IJ triple lumen Altamirano catheter, no edema, erythema or tenderness Lab and/or Imaging Studies Recent Results (from the past 24 hour(s)) TYPE AND SCREEN Collection Time: 09/21/19 ??7:25 AM Result Value Ref Range Antibody Screen NEG ?? ABO Rh A POS ?? MAGNESIUM BLOOD Collection Time: 09/21/19 ??7:27 AM Result Value Ref Range Magnesium 1.8 1.6 - 2.6 mg/dL POTASSIUM BLOOD Collection Time: 09/21/19 ??7:27 AM Result Value Ref Range Potassium 4.1 3.5 - 4.5 mmol/L CBC W AUTO DIFFERENTIAL Collection Time: 09/21/19 ??7:27 AM Result Value Ref Range WBC 92.5 (HH) 3.5 - 10.5 10? 3 /uL RBC 4.26 (L) 4.30 - 5.70 10? 6 /uL Hemoglobin 12.6 (L) 13.5 - 17.5 g/dL Hematocrit 38.3 (L) 39.0 - 50.0 % MCV 89.9 81.0 - 97.0 fL MCH 29.6 28.0 - 34.0 pg MCHC 32.9 32.0 - 36.0 g/dL Platelet Count 303 150 - 400 10? 3 /uL RDW-SD 48.9 36.0 - 50.0 fL RDW-CV 14.9 (H) 11.2 - 14.8 % MPV 10.9 9.3 - 12.8 fL nRBC Absolute 0.14 (H) 0 10? 3 /uL nRBC Auto 0.2 (H) 0 /100 WBC CALCIUM IONIZED WHOLE BLOOD Collection Time: 09/21/19 ??7:27 AM Result Value Ref Range Ionized Calcium Whole Blood 1.19 mmol/L Adjusted Ionized Calcium 1.15 (L) 1.19 - 1.34 mmol/L pH Whole Blood 7.33 (L) 7.35 - 7.45 FLOW CYTOMETRY CD34 COUNT BLOOD Collection Time: 09/21/19 ??7:27 AM Result Value Ref Range Reason for test ?B-cell lymphoma, unspecified B-cell lymphoma type, unspecified body region Client Specimen ID # ?[id number] Number of Markers 2 ?? Flow Cytometry Results ? Differential Result % Comment Total Viability ??99.0 ?? Lymph/Roberts/Gran Region Surface Marker Results % Absolute Count (cell/uL) CD34 0.08 73.260 CD45 96.93 88,763.648 Flow Cytometry Interpretation ?Testing is technical only and does not require an interpretation of results. Disclaimer ?Test performed at [facility], [address] [place] [address], [facility]. This test was developed and its performance characteristics determined by the Flow Cytometry Laboratory. It has not been cleared by the [place] Food and Drug Administration (FDA). The FDA has determined that such clearance or approval is not necessary. This test is used for clinical purposes. It should not be regarded as investigational or for research. This laboratory is regulated under the Clinical Laboratory Improvement Amendments of 1998 (CLIA) as a qualified to perform high complexity clinical testing. Embedded Images ?? DIFFERENTIAL MANUAL Collection Time: 09/21/19 ??7:27 AM Result Value Ref Range WBC (corrected for NRBC) 92.5 10? 3 /uL Total Cell Count 100 ?? Neutrophils Absolute Manual 69.38 (H) 1.60 - 7.00 10? 3 /uL Lymphocyte Absolute 3.70 (H) 0.80 - 2.90 10? 3 /uL Monocytes Absolute 9.25 (H) 0.14 - 0.66 10? 3 /uL Eosinophils Absolute Manual 4.63 (H) 0.00 - 0.22 10? 3 /uL Basophil Absolute Manual 1.85 (H) 0.00 - 0.06 10? 3 /uL Band % Manual 18 (H) 0 - 10 % Neutrophil % Manual 57 30 - 60 % Lymphocyte % 4 (L) 20 - 45 % Monocytes % Manual 10 2 - 10 % Eosinophils % 5 1 - 6 % Basophils % Relative 2 0 - 3 % Atypical Lymphocyte % Manual 1 (H) 0 % Metamyelocyte % Manual 1 (H) 0 % Myelocytes % Manual 2 (H) 0 % nRBC Manual 1 (H) 0 /100 WBC Platelet Estimate Adequate Adequate Polychromasia 1+ (Abnormal) None Ovalocytes Occasional (Abnormal) None [place] Cells 1+ (Abnormal) None Tear Drop Cells Occasional (Abnormal) None Toxic Granulation 1+ (Abnormal) None Dohle Bodies 1+ (Abnormal) None CBC W AUTO DIFFERENTIAL Collection Time: 09/21/19 ??2:13 PM Result Value Ref Range WBC 66.1 (HH) 3.5 - 10.5 10? 3 /uL RBC 3.65 (L) 4.30 - 5.70 10? 6 /uL Hemoglobin 11.0 (L) 13.5 - 17.5 g/dL Hematocrit 32.7 (L) 39.0 - 50.0 % MCV 89.6 81.0 - 97.0 fL MCH 30.1 28.0 - 34.0 pg MCHC 33.6 32.0 - 36.0 g/dL Platelet Count 135 (L) 150 - 400 10? 3 /uL RDW-SD 49.0 36.0 - 50.0 fL RDW-CV 14.8 11.2 - 14.8 % MPV 9.3 9.3 - 12.8 fL nRBC Absolute 0.12 (H) 0 10? 3 /uL nRBC Auto 0.2 (H) 0 /100 WBC DIFFERENTIAL MANUAL Collection Time: 09/21/19 ??2:13 PM Result Value Ref Range WBC (corrected for NRBC) 66.1 10? 3 /uL Total Cell Count 100 ?? Neutrophils Absolute Manual 56.19 (H) 1.60 - 7.00 10? 3 /uL Lymphocyte Absolute 0.66 (L) 0.80 - 2.90 10? 3 /uL Monocytes Absolute 4.63 (H) 0.14 - 0.66 10? 3 /uL Eosinophils Absolute Manual 3.31 (H) 0.00 - 0.22 10? 3 /uL Band % Manual 28 (H) 0 - 10 % Neutrophil % Manual 57 30 - 60 % Lymphocyte % 1 (L) 20 - 45 % Monocytes % Manual 7 2 - 10 % Eosinophils % 5 1 - 6 % Metamyelocyte % Manual 2 (H) 0 % Platelet Estimate Slightly Decreased (Abnormal) Adequate Target Cells 1+ (Abnormal) None Dohle Bodies Occasional (Abnormal) None Procedures Leukapheresis Assessment and Plan Marcello Guillen is a 49 year old y.o. male with marginal zone lymphoma who presents for peripheral blood hematopoietic progenitor collection #1. This is Day 5 of his Neupogen. ?? Catheter placement was confirmed per IR note. No changes were noted in Donor History Questionnaire. Donor was stable going into collection. Pre collection Hct and Plt levels were acceptable. Post collection Hct=32.7, Oqw=074 . The collection was well tolerated. The goal for this procedure ??is 2-4 x 10e6 CD34 cells/kg. Processed volume during procedure was [id number]. Yield of collection was 10.4x10e6 CD34/kg. Goal was reached. Apollo Garcia MD, PhD Tiffanie Mcpherson ADVERTISING SALES AGENT-FEEDER/FOLDER LAB - BLOOD BAN K ORDERABLES Performing Organization Address City/State/[facility] Co de Phone Number [address] [phone] * SPECIAL TRAY REQUEST (09/21/2019 7:00 AM BUSINESS ADMINISTRATION PROGRAM CHAIR) Only the most recent of2 resultswithin the time period is included. Narrative Apollo Garcia MD - 09/21/2019 7:00 AM BUSINESS ADMINISTRATION PROGRAM CHAIR Apollo Garcia MD ? 09/22/2019 ??5:04 PM Cellular Therapy Collections Progress Note Marcello Guillen 09/21/2019 Diagnosis: 1. B-cell lymphoma, unspecified B-cell lymphoma type, unspecified body region ?? Protocol/Regimen: HPC Mobilization and Collection Interval History: 49 y.o. male with marginal zone lymphoma here for autologous hematopoietic progenitor collection #1. Patient reports some bone pain since he started taking Neupogen. The pain is mostly in his sternum and back. Pain is controlled with Tylenol and oxycodone. No pain this am. No F/C/N/V/D/COOPER/SOB. Allergies Allergen Reactions ? ? Adhesive Sensitivity Urticaria and Other ??Electrodes -- welps where stickers are Also, use paper tape Current Outpatient Medications Medication Sig Dispense Refill ? ? acetaminophen (TYLENOL) 325 MG tablet Take 2 tablets by mouth every 6 hours as needed for Fever or Pain Maximum allowable Acetaminophen amount = 4 Grams (4000 mg) ??/ 24 hours. (Patient not taking: Reported on 09/21/2019) ? acyclovir (ZOVIRAX) 400 MG tablet Take 1 tablet by mouth 2 times daily 60 tablet 11 ? ? BABY ASPIRIN PO Take 81 mg by mouth ? diclofenac sodium EC (VOLTAREN) 75 MG tablet Take 75 mg by mouth 2 times daily ? docusate sodium (COLACE) 100 MG capsule Take 1 capsule by mouth 2 times daily 60 capsule 0 ? ? enoxaparin (LOVENOX) injection Inject 40 mg subcutaneously once daily 30 syringe 2 ? ? escitalopram (LEXAPRO) 10 MG tablet Take 1 tablet by mouth once daily 30 tablet 0 ? ? ibuprofen (MOTRIN) 600 MG tablet Take 1 tablet by mouth every 6 hours (Patient taking differently: Take 200 mg by mouth every 6 hours ) ? Lansoprazole (PREVACID PO) Take by mouth as needed ? lidocaine-prilocaine (EMLA) 2.5-2.5 % cream Apply to port site 30-60 mins before use. ? ondansetron, disintegrating, (ZOFRAN ODT) 8 MG tablet Dissolve 1 tablet on top of tongue then swallow with saliva every 8 hours as needed for nausea or vomiting ? oxyCODONE, immediate release, (ROXICODONE) 5 MG tablet Take 1 tablet by mouth every 6 hours as needed for Pain 28 tablet 0 ? ? penicillin v potassium (VEETIDS) 250 MG tablet Take 1 tablet by mouth 2 times daily (Patient taking differently: Take 250 mg by mouth 2 times daily Took 500 mg additional per dentist instructions) 60 tablet 5 ? ? polyethylene glycol 3350 (MIRALAX) packet Take 17 g by mouth once daily ? prochlorperazine (COMPAZINE) 10 MG tablet Take 10 mg by mouth every 6 hours as needed ?? Current Facility-Administered Medications Medication Dose Route Frequency Provider Last Rate Last Dose ? ? 0.9% NaCl injection 20 mL ??20 mL Intracatheter PRN Tiffanie Mcpherson APRN-CNP ?? 20 mL at 09/21/19 1438 ? ? calcium gluconate 5 g in 300 mL NS ??5 g Intravenous PRN Tiffanie Mcpherson APRN-CNP ?? Stopped at 09/21/19 1350 ? ? heparin lock flush injection 300 Units ??300 Units Intravenous PRN PatrickTiffanie APRN-CNP ?? 300 Units at 09/21/19 1352 Physical Exam Constitutional: Patient Vitals for the past 24 hrs: BP Temp Temp src Pulse Resp SpO2 Height Weight 09/21/19 1415 133/80 98.9 ??F Oral 94 18 98 % ? ? 09/21/19 1211 143/82 98.3 ??F Oral 88 18 97 % ? ? 09/21/19 1119 144/82 ? ? 88 18 98 % ? ? 09/21/19 1036 130/75 98.6 ??F Oral 93 18 99 % ? ? 09/21/19 0923 128/80 98.1 ??F Oral 86 18 97 % ? ? 09/21/19 0741 129/86 98.1 ??F Oral 97 18 97 % 1.715 m (5' 7.5 ) 117.5 kg (259 lb) General Appearance: No acute distress, comfortable in chair Head: No nasal congestion or discharge Skin: no rashes, multiple piercing's Eyes: anicteric: Chest: lungs clear to auscultation Heart: normal S1 and S2, no murmur Abdomen: soft, non-tender, +BS Extremities: no edema Access: L IJ triple lumen Altamirano catheter, no edema, erythema or tenderness Lab and/or Imaging Studies Recent Results (from the past 24 hour(s)) TYPE AND SCREEN Collection Time: 09/21/19 ??7:25 AM Result Value Ref Range Antibody Screen NEG ?? ABO Rh A POS ?? MAGNESIUM BLOOD Collection Time: 09/21/19 ??7:27 AM Result Value Ref Range Magnesium 1.8 1.6 - 2.6 mg/dL POTASSIUM BLOOD Collection Time: 09/21/19 ??7:27 AM Result Value Ref Range Potassium 4.1 3.5 - 4.5 mmol/L CBC W AUTO DIFFERENTIAL Collection Time: 09/21/19 ??7:27 AM Result Value Ref Range WBC 92.5 (HH) 3.5 - 10.5 10? 3 /uL RBC 4.26 (L) 4.30 - 5.70 10? 6 /uL Hemoglobin 12.6 (L) 13.5 - 17.5 g/dL Hematocrit 38.3 (L) 39.0 - 50.0 % MCV 89.9 81.0 - 97.0 fL MCH 29.6 28.0 - 34.0 pg MCHC 32.9 32.0 - 36.0 g/dL Platelet Count 303 150 - 400 10? 3 /uL RDW-SD 48.9 36.0 - 50.0 fL RDW-CV 14.9 (H) 11.2 - 14.8 % MPV 10.9 9.3 - 12.8 fL nRBC Absolute 0.14 (H) 0 10? 3 /uL nRBC Auto 0.2 (H) 0 /100 WBC CALCIUM IONIZED WHOLE BLOOD Collection Time: 09/21/19 ??7:27 AM Result Value Ref Range Ionized Calcium Whole Blood 1.19 mmol/L Adjusted Ionized Calcium 1.15 (L) 1.19 - 1.34 mmol/L pH Whole Blood 7.33 (L) 7.35 - 7.45 FLOW CYTOMETRY CD34 COUNT BLOOD Collection Time: 09/21/19 ??7:27 AM Result Value Ref Range Reason for test ?B-cell lymphoma, unspecified B-cell lymphoma type, unspecified body region Client Specimen ID # ?[id number] Number of Markers 2 ?? Flow Cytometry Results ? Differential Result % Comment Total Viability ??99.0 ?? Lymph/Roberts/Gran Region Surface Marker Results % Absolute Count (cell/uL) CD34 0.08 73.260 CD45 96.93 88,763.648 Flow Cytometry Interpretation ?Testing is technical only and does not require an interpretation of results. Disclaimer ?Test performed at [facility], [address] [place] [address], [id number]. This test was developed and its performance characteristics determined by the Flow Cytometry Laboratory. It has not been cleared by the [place] Food and Drug Administration (FDA). The FDA has determined that such clearance or approval is not necessary. This test is used for clinical purposes. It should not be regarded as investigational or for research. This laboratory is regulated under the Clinical Laboratory Improvement Amendments of 1998 (CLIA) as a qualified to perform high complexity clinical testing. Embedded Images ?? DIFFERENTIAL MANUAL Collection Time: 09/21/19 ??7:27 AM Result Value Ref Range WBC (corrected for NRBC) 92.5 10? 3 /uL Total Cell Count 100 ?? Neutrophils Absolute Manual 69.38 (H) 1.60 - 7.00 10? 3 /uL Lymphocyte Absolute 3.70 (H) 0.80 - 2.90 10? 3 /uL Monocytes Absolute 9.25 (H) 0.14 - 0.66 10? 3 /uL Eosinophils Absolute Manual 4.63 (H) 0.00 - 0.22 10? 3 /uL Basophil Absolute Manual 1.85 (H) 0.00 - 0.06 10? 3 /uL Band % Manual 18 (H) 0 - 10 % Neutrophil % Manual 57 30 - 60 % Lymphocyte % 4 (L) 20 - 45 % Monocytes % Manual 10 2 - 10 % Eosinophils % 5 1 - 6 % Basophils % Relative 2 0 - 3 % Atypical Lymphocyte % Manual 1 (H) 0 % Metamyelocyte % Manual 1 (H) 0 % Myelocytes % Manual 2 (H) 0 % nRBC Manual 1 (H) 0 /100 WBC Platelet Estimate Adequate Adequate Polychromasia 1+ (Abnormal) None Ovalocytes Occasional (Abnormal) None [place] Cells 1+ (Abnormal) None Tear Drop Cells Occasional (Abnormal) None Toxic Granulation 1+ (Abnormal) None Dohle Bodies 1+ (Abnormal) None CBC W AUTO DIFFERENTIAL Collection Time: 09/21/19 ??2:13 PM Result Value Ref Range WBC 66.1 (HH) 3.5 - 10.5 10? 3 /uL RBC 3.65 (L) 4.30 - 5.70 10? 6 /uL Hemoglobin 11.0 (L) 13.5 - 17.5 g/dL Hematocrit 32.7 (L) 39.0 - 50.0 % MCV 89.6 81.0 - 97.0 fL MCH 30.1 28.0 - 34.0 pg MCHC 33.6 32.0 - 36.0 g/dL Platelet Count 135 (L) 150 - 400 10? 3 /uL RDW-SD 49.0 36.0 - 50.0 fL RDW-CV 14.8 11.2 - 14.8 % MPV 9.3 9.3 - 12.8 fL nRBC Absolute 0.12 (H) 0 10? 3 /uL nRBC Auto 0.2 (H) 0 /100 WBC DIFFERENTIAL MANUAL Collection Time: 09/21/19 ??2:13 PM Result Value Ref Range WBC (corrected for NRBC) 66.1 10? 3 /uL Total Cell Count 100 ?? Neutrophils Absolute Manual 56.19 (H) 1.60 - 7.00 10? 3 /uL Lymphocyte Absolute 0.66 (L) 0.80 - 2.90 10? 3 /uL Monocytes Absolute 4.63 (H) 0.14 - 0.66 10? 3 /uL Eosinophils Absolute Manual 3.31 (H) 0.00 - 0.22 10? 3 /uL Band % Manual 28 (H) 0 - 10 % Neutrophil % Manual 57 30 - 60 % Lymphocyte % 1 (L) 20 - 45 % Monocytes % Manual 7 2 - 10 % Eosinophils % 5 1 - 6 % Metamyelocyte % Manual 2 (H) 0 % Platelet Estimate Slightly Decreased (Abnormal) Adequate Target Cells 1+ (Abnormal) None Dohle Bodies Occasional (Abnormal) None Procedures Leukapheresis Assessment and Plan Marcello Guillen is a 49 year old y.o. male with marginal zone lymphoma who presents for peripheral blood hematopoietic progenitor collection #1. This is Day 5 of his Neupogen. ?? Catheter placement was confirmed per IR note. No changes were noted in Donor History Questionnaire. Donor was stable going into collection. Pre collection Hct and Plt levels were acceptable. Post collection Hct=32.7, Auy=625 . The collection was well tolerated. The goal for this procedure ??is 2-4 x 10e6 CD34 cells/kg. Processed volume during procedure was [id number]. Yield of collection was 10.4x10e6 CD34/kg. Goal was reached. Apollo Garcia MD, PhD Bill Ferrera MD NURSING - DIET * DAILY WEIGHTS (09/21/2019 7:00 AM BUSINESS ADMINISTRATION PROGRAM CHAIR) Narrative Apollo Garcia MD - 09/21/2019 7:00 AM BUSINESS ADMINISTRATION PROGRAM CHAIR Apollo Garcia MD ? 09/22/2019 ??5:04 PM Cellular Therapy Collections Progress Note Marcello Guillen 09/21/2019 Diagnosis: 1. B-cell lymphoma, unspecified B-cell lymphoma type, unspecified body region ?? Protocol/Regimen: HPC Mobilization and Collection Interval History: 49 y.o. male with marginal zone lymphoma here for autologous hematopoietic progenitor collection #1. Patient reports some bone pain since he started taking Neupogen. The pain is mostly in his sternum and back. Pain is controlled with Tylenol and oxycodone. No pain this am. No F/C/N/V/D/COOPER/SOB. Allergies Allergen Reactions ? ? Adhesive Sensitivity Urticaria and Other ??Electrodes -- welps where stickers are Also, use paper tape Current Outpatient Medications Medication Sig Dispense Refill ? ? acetaminophen (TYLENOL) 325 MG tablet Take 2 tablets by mouth every 6 hours as needed for Fever or Pain Maximum allowable Acetaminophen amount = 4 Grams (4000 mg) ??/ 24 hours. (Patient not taking: Reported on 09/21/2019) ? acyclovir (ZOVIRAX) 400 MG tablet Take 1 tablet by mouth 2 times daily 60 tablet 11 ? ? BABY ASPIRIN PO Take 81 mg by mouth ? diclofenac sodium EC (VOLTAREN) 75 MG tablet Take 75 mg by mouth 2 times daily ? docusate sodium (COLACE) 100 MG capsule Take 1 capsule by mouth 2 times daily 60 capsule 0 ? ? enoxaparin (LOVENOX) injection Inject 40 mg subcutaneously once daily 30 syringe 2 ? ? escitalopram (LEXAPRO) 10 MG tablet Take 1 tablet by mouth once daily 30 tablet 0 ? ? ibuprofen (MOTRIN) 600 MG tablet Take 1 tablet by mouth every 6 hours (Patient taking differently: Take 200 mg by mouth every 6 hours ) ? Lansoprazole (PREVACID PO) Take by mouth as needed ? lidocaine-prilocaine (EMLA) 2.5-2.5 % cream Apply to port site 30-60 mins before use. ? ondansetron, disintegrating, (ZOFRAN ODT) 8 MG tablet Dissolve 1 tablet on top of tongue then swallow with saliva every 8 hours as needed for nausea or vomiting ? oxyCODONE, immediate release, (ROXICODONE) 5 MG tablet Take 1 tablet by mouth every 6 hours as needed for Pain 28 tablet 0 ? ? penicillin v potassium (VEETIDS) 250 MG tablet Take 1 tablet by mouth 2 times daily (Patient taking differently: Take 250 mg by mouth 2 times daily Took 500 mg additional per dentist instructions) 60 tablet 5 ? ? polyethylene glycol 3350 (MIRALAX) packet Take 17 g by mouth once daily ? prochlorperazine (COMPAZINE) 10 MG tablet Take 10 mg by mouth every 6 hours as needed ?? Current Facility-Administered Medications Medication Dose Route Frequency Provider Last Rate Last Dose ? ? 0.9% NaCl injection 20 mL ??20 mL Intracatheter PRN Tiffanie Mcpherson APRN-FEEDER/FOLDER ?? 20 mL at 09/21/19 1438 ? ? calcium gluconate 5 g in 300 mL NS ??5 g Intravenous PRN Tiffanie Mcpherson ADVERTISING SALES AGENT-FEEDER/FOLDER ?? Stopped at 09/21/19 1350 ? ? heparin lock flush injection 300 Units ??300 Units Intravenous PRN Tiffanie Mcpherson ADVERTISING SALES AGENT-FEEDER/FOLDER ?? 300 Units at 09/21/19 1352 Physical Exam Constitutional: Patient Vitals for the past 24 hrs: BP Temp Temp src Pulse Resp SpO2 Height Weight 09/21/19 1415 133/80 98.9 ??F Oral 94 18 98 % ? ? 09/21/19 1211 143/82 98.3 ??F Oral 88 18 97 % ? ? 09/21/19 1119 144/82 ? ? 88 18 98 % ? ? 09/21/19 1036 130/75 98.6 ??F Oral 93 18 99 % ? ? 09/21/19 0923 128/80 98.1 ??F Oral 86 18 97 % ? ? 09/21/19 0741 129/86 98.1 ??F Oral 97 18 97 % 1.715 m (5' 7.5 ) 117.5 kg (259 lb) General Appearance: No acute distress, comfortable in chair Head: No nasal congestion or discharge Skin: no rashes, multiple piercing's Eyes: anicteric: Chest: lungs clear to auscultation Heart: normal S1 and S2, no murmur Abdomen: soft, non-tender, +BS Extremities: no edema Access: L IJ triple lumen Altamirano catheter, no edema, erythema or tenderness Lab and/or Imaging Studies Recent Results (from the past 24 hour(s)) TYPE AND SCREEN Collection Time: 09/21/19 ??7:25 AM Result Value Ref Range Antibody Screen NEG ?? ABO Rh A POS ?? MAGNESIUM BLOOD Collection Time: 09/21/19 ??7:27 AM Result Value Ref Range Magnesium 1.8 1.6 - 2.6 mg/dL POTASSIUM BLOOD Collection Time: 09/21/19 ??7:27 AM Result Value Ref Range Potassium 4.1 3.5 - 4.5 mmol/L CBC W AUTO DIFFERENTIAL Collection Time: 09/21/19 ??7:27 AM Result Value Ref Range WBC 92.5 (HH) 3.5 - 10.5 10? 3 /uL RBC 4.26 (L) 4.30 - 5.70 10? 6 /uL Hemoglobin 12.6 (L) 13.5 - 17.5 g/dL Hematocrit 38.3 (L) 39.0 - 50.0 % MCV 89.9 81.0 - 97.0 fL MCH 29.6 28.0 - 34.0 pg MCHC 32.9 32.0 - 36.0 g/dL Platelet Count 303 150 - 400 10? 3 /uL RDW-SD 48.9 36.0 - 50.0 fL RDW-CV 14.9 (H) 11.2 - 14.8 % MPV 10.9 9.3 - 12.8 fL nRBC Absolute 0.14 (H) 0 10? 3 /uL nRBC Auto 0.2 (H) 0 /100 WBC CALCIUM IONIZED WHOLE BLOOD Collection Time: 09/21/19 ??7:27 AM Result Value Ref Range Ionized Calcium Whole Blood 1.19 mmol/L Adjusted Ionized Calcium 1.15 (L) 1.19 - 1.34 mmol/L pH Whole Blood 7.33 (L) 7.35 - 7.45 FLOW CYTOMETRY CD34 COUNT BLOOD Collection Time: 09/21/19 ??7:27 AM Result Value Ref Range Reason for test ?B-cell lymphoma, unspecified B-cell lymphoma type, unspecified body region Client Specimen ID # ?[id number] Number of Markers 2 ?? Flow Cytometry Results ? Differential Result % Comment Total Viability ??99.0 ?? Lymph/Roberts/Gran Region Surface Marker Results % Absolute Count (cell/uL) CD34 0.08 73.260 CD45 96.93 88,763.648 Flow Cytometry Interpretation ?Testing is technical only and does not require an interpretation of results. Disclaimer ?Test performed at [facility], [address] [place] [address], [id number]. This test was developed and its performance characteristics determined by the [facility]ometry [facility]. It has not been cleared by the [place] Food and Drug Administration (FDA). The FDA has determined that such clearance or approval is not necessary. This test is used for clinical purposes. It should not be regarded as investigational or for research. This laboratory is regulated under the Clinical Laboratory Improvement Amendments of 1998 (CLIA) as a qualified to perform high complexity clinical testing. Embedded Images ?? DIFFERENTIAL MANUAL Collection Time: 09/21/19 ??7:27 AM Result Value Ref Range WBC (corrected for NRBC) 92.5 10? 3 /uL Total Cell Count 100 ?? Neutrophils Absolute Manual 69.38 (H) 1.60 - 7.00 10? 3 /uL Lymphocyte Absolute 3.70 (H) 0.80 - 2.90 10? 3 /uL Monocytes Absolute 9.25 (H) 0.14 - 0.66 10? 3 /uL Eosinophils Absolute Manual 4.63 (H) 0.00 - 0.22 10? 3 /uL Basophil Absolute Manual 1.85 (H) 0.00 - 0.06 10? 3 /uL Band % Manual 18 (H) 0 - 10 % Neutrophil % Manual 57 30 - 60 % Lymphocyte % 4 (L) 20 - 45 % Monocytes % Manual 10 2 - 10 % Eosinophils % 5 1 - 6 % Basophils % Relative 2 0 - 3 % Atypical Lymphocyte % Manual 1 (H) 0 % Metamyelocyte % Manual 1 (H) 0 % Myelocytes % Manual 2 (H) 0 % nRBC Manual 1 (H) 0 /100 WBC Platelet Estimate Adequate Adequate Polychromasia 1+ (Abnormal) None Ovalocytes Occasional (Abnormal) None [place]rav[place] Cells 1+ (Abnormal) None Tear Drop Cells Occasional (Abnormal) None Toxic Granulation 1+ (Abnormal) None Dohle Bodies 1+ (Abnormal) None CBC W AUTO DIFFERENTIAL Collection Time: 09/21/19 ??2:13 PM Result Value Ref Range WBC 66.1 (HH) 3.5 - 10.5 10? 3 /uL RBC 3.65 (L) 4.30 - 5.70 10? 6 /uL Hemoglobin 11.0 (L) 13.5 - 17.5 g/dL Hematocrit 32.7 (L) 39.0 - 50.0 % MCV 89.6 81.0 - 97.0 fL MCH 30.1 28.0 - 34.0 pg MCHC 33.6 32.0 - 36.0 g/dL Platelet Count 135 (L) 150 - 400 10? 3 /uL RDW-SD 49.0 36.0 - 50.0 fL RDW-CV 14.8 11.2 - 14.8 % MPV 9.3 9.3 - 12.8 fL nRBC Absolute 0.12 (H) 0 10? 3 /uL nRBC Auto 0.2 (H) 0 /100 WBC DIFFERENTIAL MANUAL Collection Time: 09/21/19 ??2:13 PM Result Value Ref Range WBC (corrected for NRBC) 66.1 10? 3 /uL Total Cell Count 100 ?? Neutrophils Absolute Manual 56.19 (H) 1.60 - 7.00 10? 3 /uL Lymphocyte Absolute 0.66 (L) 0.80 - 2.90 10? 3 /uL Monocytes Absolute 4.63 (H) 0.14 - 0.66 10? 3 /uL Eosinophils Absolute Manual 3.31 (H) 0.00 - 0.22 10? 3 /uL Band % Manual 28 (H) 0 - 10 % Neutrophil % Manual 57 30 - 60 % Lymphocyte % 1 (L) 20 - 45 % Monocytes % Manual 7 2 - 10 % Eosinophils % 5 1 - 6 % Metamyelocyte % Manual 2 (H) 0 % Platelet Estimate Slightly Decreased (Abnormal) Adequate Target Cells 1+ (Abnormal) None Dohle Bodies Occasional (Abnormal) None Procedures Leukapheresis Assessment and Plan Marcello Guillen is a 49 year old y.o. male with marginal zone lymphoma who presents for peripheral blood hematopoietic progenitor collection #1. This is Day 5 of his Neupogen. ?? Catheter placement was confirmed per IR note. No changes were noted in Donor History Questionnaire. Donor was stable going into collection. Pre collection Hct and Plt levels were acceptable. Post collection Hct=32.7, Bar=033 . The collection was well tolerated. The goal for this procedure ??is 2-4 x 10e6 CD34 cells/kg. Processed volume during procedure was [id number]. Yield of collection was 10.4x10e6 CD34/kg. Goal was reached. Apollo Garcia MD, PhD Tiffanie Mcpherson ADVERTISING SALES AGENT-FEEDER/FOLDER NURSING - VITAL SIGNS AND ASSESSMENT * AMBULATE / UP AD JAKE (09/21/2019 7:00 AM BUSINESS ADMINISTRATION PROGRAM CHAIR) Narrative Apollo Garcia MD - 09/21/2019 7:00 AM BUSINESS ADMINISTRATION PROGRAM CHAIR Apollo Garcia MD ? 09/22/2019 ??5:04 PM Cellular Therapy Collections Progress Note Marcello Guillen 09/21/2019 Diagnosis: 1. B-cell lymphoma, unspecified B-cell lymphoma type, unspecified body region ?? Protocol/Regimen: HPC Mobilization and Collection Interval History: 49 y.o. male with marginal zone lymphoma here for autologous hematopoietic progenitor collection #1. Patient reports some bone pain since he started taking Neupogen. The pain is mostly in his sternum and back. Pain is controlled with Tylenol and oxycodone. No pain this am. No F/C/N/V/D/COOPER/SOB. Allergies Allergen Reactions ? ? Adhesive Sensitivity Urticaria and Other ??Electrodes -- welps where stickers are Also, use paper tape Current Outpatient Medications Medication Sig Dispense Refill ? ? acetaminophen (TYLENOL) 325 MG tablet Take 2 tablets by mouth every 6 hours as needed for Fever or Pain Maximum allowable Acetaminophen amount = 4 Grams (4000 mg) ??/ 24 hours. (Patient not taking: Reported on 09/21/2019) ? acyclovir (ZOVIRAX) 400 MG tablet Take 1 tablet by mouth 2 times daily 60 tablet 11 ? ? BABY ASPIRIN PO Take 81 mg by mouth ? diclofenac sodium EC (VOLTAREN) 75 MG tablet Take 75 mg by mouth 2 times daily ? docusate sodium (COLACE) 100 MG capsule Take 1 capsule by mouth 2 times daily 60 capsule 0 ? ? enoxaparin (LOVENOX) injection Inject 40 mg subcutaneously once daily 30 syringe 2 ? ? escitalopram (LEXAPRO) 10 MG tablet Take 1 tablet by mouth once daily 30 tablet 0 ? ? ibuprofen (MOTRIN) 600 MG tablet Take 1 tablet by mouth every 6 hours (Patient taking differently: Take 200 mg by mouth every 6 hours ) ? Lansoprazole (PREVACID PO) Take by mouth as needed ? lidocaine-prilocaine (EMLA) 2.5-2.5 % cream Apply to port site 30-60 mins before use. ? ondansetron, disintegrating, (ZOFRAN ODT) 8 MG tablet Dissolve 1 tablet on top of tongue then swallow with saliva every 8 hours as needed for nausea or vomiting ? oxyCODONE, immediate release, (ROXICODONE) 5 MG tablet Take 1 tablet by mouth every 6 hours as needed for Pain 28 tablet 0 ? ? penicillin v potassium (VEETIDS) 250 MG tablet Take 1 tablet by mouth 2 times daily (Patient taking differently: Take 250 mg by mouth 2 times daily Took 500 mg additional per dentist instructions) 60 tablet 5 ? ? polyethylene glycol 3350 (MIRALAX) packet Take 17 g by mouth once daily ? prochlorperazine (COMPAZINE) 10 MG tablet Take 10 mg by mouth every 6 hours as needed ?? Current Facility-Administered Medications Medication Dose Route Frequency Provider Last Rate Last Dose ? ? 0.9% NaCl injection 20 mL ??20 mL Intracatheter PRN Tiffanie Mcpherson APRN-FEEDER/FOLDER ?? 20 mL at 09/21/19 1438 ? ? calcium gluconate 5 g in 300 mL NS ??5 g Intravenous PRN Tiffanie Mcpherson APRN-FEEDER/FOLDER ?? Stopped at 09/21/19 1350 ? ? heparin lock flush injection 300 Units ??300 Units Intravenous PRN Tiffanie Mcpherson ADVERTISING SALES AGENT-FEEDER/FOLDER ?? 300 Units at 09/21/19 1352 Physical Exam Constitutional: Patient Vitals for the past 24 hrs: BP Temp Temp src Pulse Resp SpO2 Height Weight 09/21/19 1415 133/80 98.9 ??F Oral 94 18 98 % ? ? 09/21/19 1211 143/82 98.3 ??F Oral 88 18 97 % ? ? 09/21/19 1119 144/82 ? ? 88 18 98 % ? ? 09/21/19 1036 130/75 98.6 ??F Oral 93 18 99 % ? ? 09/21/19 0923 128/80 98.1 ??F Oral 86 18 97 % ? ? 09/21/19 0741 129/86 98.1 ??F Oral 97 18 97 % 1.715 m (5' 7.5 ) 117.5 kg (259 lb) General Appearance: No acute distress, comfortable in chair Head: No nasal congestion or discharge Skin: no rashes, multiple piercing's Eyes: anicteric: Chest: lungs clear to auscultation Heart: normal S1 and S2, no murmur Abdomen: soft, non-tender, +BS Extremities: no edema Access: L IJ triple lumen Altamirano catheter, no edema, erythema or tenderness Lab and/or Imaging Studies Recent Results (from the past 24 hour(s)) TYPE AND SCREEN Collection Time: 09/21/19 ??7:25 AM Result Value Ref Range Antibody Screen NEG ?? ABO Rh A POS ?? MAGNESIUM BLOOD Collection Time: 09/21/19 ??7:27 AM Result Value Ref Range Magnesium 1.8 1.6 - 2.6 mg/dL POTASSIUM BLOOD Collection Time: 09/21/19 ??7:27 AM Result Value Ref Range Potassium 4.1 3.5 - 4.5 mmol/L CBC W AUTO DIFFERENTIAL Collection Time: 09/21/19 ??7:27 AM Result Value Ref Range WBC 92.5 (HH) 3.5 - 10.5 10? 3 /uL RBC 4.26 (L) 4.30 - 5.70 10? 6 /uL Hemoglobin 12.6 (L) 13.5 - 17.5 g/dL Hematocrit 38.3 (L) 39.0 - 50.0 % MCV 89.9 81.0 - 97.0 fL MCH 29.6 28.0 - 34.0 pg MCHC 32.9 32.0 - 36.0 g/dL Platelet Count 303 150 - 400 10? 3 /uL RDW-SD 48.9 36.0 - 50.0 fL RDW-CV 14.9 (H) 11.2 - 14.8 % MPV 10.9 9.3 - 12.8 fL nRBC Absolute 0.14 (H) 0 10? 3 /uL nRBC Auto 0.2 (H) 0 /100 WBC CALCIUM IONIZED WHOLE BLOOD Collection Time: 09/21/19 ??7:27 AM Result Value Ref Range Ionized Calcium Whole Blood 1.19 mmol/L Adjusted Ionized Calcium 1.15 (L) 1.19 - 1.34 mmol/L pH Whole Blood 7.33 (L) 7.35 - 7.45 FLOW CYTOMETRY CD34 COUNT BLOOD Collection Time: 09/21/19 ??7:27 AM Result Value Ref Range Reason for test ?B-cell lymphoma, unspecified B-cell lymphoma type, unspecified body region Client Specimen ID # ?[id number] Number of Markers 2 ?? Flow Cytometry Results ? Differential Result % Comment Total Viability ??99.0 ?? Lymph/Roberts/Gran Region Surface Marker Results % Absolute Count (cell/uL) CD34 0.08 73.260 CD45 96.93 88,763.648 Flow Cytometry Interpretation ?Testing is technical only and does not require an interpretation of results. Disclaimer ?Test performed at [facility], [address] [place] [address], [id number]. This test was developed and its performance characteristics determined by the [facility]. It has not been cleared by the [place] Food and Drug Administration (FDA). The FDA has determined that such clearance or approval is not necessary. This test is used for clinical purposes. It should not be regarded as investigational or for research. This laboratory is regulated under the Clinical Laboratory Improvement Amendments of 1998 (CLIA) as a qualified to perform high complexity clinical testing. Embedded Images ?? DIFFERENTIAL MANUAL Collection Time: 09/21/19 ??7:27 AM Result Value Ref Range WBC (corrected for NRBC) 92.5 10? 3 /uL Total Cell Count 100 ?? Neutrophils Absolute Manual 69.38 (H) 1.60 - 7.00 10? 3 /uL Lymphocyte Absolute 3.70 (H) 0.80 - 2.90 10? 3 /uL Monocytes Absolute 9.25 (H) 0.14 - 0.66 10? 3 /uL Eosinophils Absolute Manual 4.63 (H) 0.00 - 0.22 10? 3 /uL Basophil Absolute Manual 1.85 (H) 0.00 - 0.06 10? 3 /uL Band % Manual 18 (H) 0 - 10 % Neutrophil % Manual 57 30 - 60 % Lymphocyte % 4 (L) 20 - 45 % Monocytes % Manual 10 2 - 10 % Eosinophils % 5 1 - 6 % Basophils % Relative 2 0 - 3 % Atypical Lymphocyte % Manual 1 (H) 0 % Metamyelocyte % Manual 1 (H) 0 % Myelocytes % Manual 2 (H) 0 % nRBC Manual 1 (H) 0 /100 WBC Platelet Estimate Adequate Adequate Polychromasia 1+ (Abnormal) None Ovalocytes Occasional (Abnormal) None [place] Cells 1+ (Abnormal) None Tear Drop Cells Occasional (Abnormal) None Toxic Granulation 1+ (Abnormal) None Dohle Bodies 1+ (Abnormal) None CBC W AUTO DIFFERENTIAL Collection Time: 09/21/19 ??2:13 PM Result Value Ref Range WBC 66.1 (HH) 3.5 - 10.5 10? 3 /uL RBC 3.65 (L) 4.30 - 5.70 10? 6 /uL Hemoglobin 11.0 (L) 13.5 - 17.5 g/dL Hematocrit 32.7 (L) 39.0 - 50.0 % MCV 89.6 81.0 - 97.0 fL MCH 30.1 28.0 - 34.0 pg MCHC 33.6 32.0 - 36.0 g/dL Platelet Count 135 (L) 150 - 400 10? 3 /uL RDW-SD 49.0 36.0 - 50.0 fL RDW-CV 14.8 11.2 - 14.8 % MPV 9.3 9.3 - 12.8 fL nRBC Absolute 0.12 (H) 0 10? 3 /uL nRBC Auto 0.2 (H) 0 /100 WBC DIFFERENTIAL MANUAL Collection Time: 09/21/19 ??2:13 PM Result Value Ref Range WBC (corrected for NRBC) 66.1 10? 3 /uL Total Cell Count 100 ?? Neutrophils Absolute Manual 56.19 (H) 1.60 - 7.00 10? 3 /uL Lymphocyte Absolute 0.66 (L) 0.80 - 2.90 10? 3 /uL Monocytes Absolute 4.63 (H) 0.14 - 0.66 10? 3 /uL Eosinophils Absolute Manual 3.31 (H) 0.00 - 0.22 10? 3 /uL Band % Manual 28 (H) 0 - 10 % Neutrophil % Manual 57 30 - 60 % Lymphocyte % 1 (L) 20 - 45 % Monocytes % Manual 7 2 - 10 % Eosinophils % 5 1 - 6 % Metamyelocyte % Manual 2 (H) 0 % Platelet Estimate Slightly Decreased (Abnormal) Adequate Target Cells 1+ (Abnormal) None Dohle Bodies Occasional (Abnormal) None Procedures Leukapheresis Assessment and Plan Marcello Guillen is a 49 year old y.o. male with marginal zone lymphoma who presents for peripheral blood hematopoietic progenitor collection #1. This is Day 5 of his Neupogen. ?? Catheter placement was confirmed per IR note. No changes were noted in Donor History Questionnaire. Donor was stable going into collection. Pre collection Hct and Plt levels were acceptable. Post collection Hct=32.7, Dva=459 . The collection was well tolerated. The goal for this procedure ??is 2-4 x 10e6 CD34 cells/kg. Processed volume during procedure was [id number]. Yield of collection was 10.4x10e6 CD34/kg. Goal was reached. Apollo Garcia MD, PhD Tiffanie Mcpherson ADVERTISING SALES AGENT-FEEDER/FOLDER NURSING - ACTIV ITY * DIET REGULAR (09/21/2019 7:00 AM BUSINESS ADMINISTRATION PROGRAM CHAIR) Narrative [facility] - 09/21/2019 7:00 AM BUSINESS ADMINISTRATION PROGRAM CHAIR Apollo Garcia MD ? 09/22/2019 ??5:04 PM Cellular Therapy Collections Progress Note Marcello Guillen 09/21/2019 Diagnosis: 1. B-cell lymphoma, unspecified B-cell lymphoma type, unspecified body region ?? Protocol/Regimen: HPC Mobilization and Collection Interval History: 49 y.o. male with marginal zone lymphoma here for autologous hematopoietic progenitor collection #1. Patient reports some bone pain since he started taking Neupogen. The pain is mostly in his sternum and back. Pain is controlled with Tylenol and oxycodone. No pain this am. No F/C/N/V/D/COOPER/SOB. Allergies Allergen Reactions ? ? Adhesive Sensitivity Urticaria and Other ??Electrodes -- welps where stickers are Also, use paper tape Current Outpatient Medications Medication Sig Dispense Refill ? ? acetaminophen (TYLENOL) 325 MG tablet Take 2 tablets by mouth every 6 hours as needed for Fever or Pain Maximum allowable Acetaminophen amount = 4 Grams (4000 mg) ??/ 24 hours. (Patient not taking: Reported on 09/21/2019) ? acyclovir (ZOVIRAX) 400 MG tablet Take 1 tablet by mouth 2 times daily 60 tablet 11 ? ? BABY ASPIRIN PO Take 81 mg by mouth ? diclofenac sodium EC (VOLTAREN) 75 MG tablet Take 75 mg by mouth 2 times daily ? docusate sodium (COLACE) 100 MG capsule Take 1 capsule by mouth 2 times daily 60 capsule 0 ? ? enoxaparin (LOVENOX) injection Inject 40 mg subcutaneously once daily 30 syringe 2 ? ? escitalopram (LEXAPRO) 10 MG tablet Take 1 tablet by mouth once daily 30 tablet 0 ? ? ibuprofen (MOTRIN) 600 MG tablet Take 1 tablet by mouth every 6 hours (Patient taking differently: Take 200 mg by mouth every 6 hours ) ? Lansoprazole (PREVACID PO) Take by mouth as needed ? lidocaine-prilocaine (EMLA) 2.5-2.5 % cream Apply to port site 30-60 mins before use. ? ondansetron, disintegrating, (ZOFRAN ODT) 8 MG tablet Dissolve 1 tablet on top of tongue then swallow with saliva every 8 hours as needed for nausea or vomiting ? oxyCODONE, immediate release, (ROXICODONE) 5 MG tablet Take 1 tablet by mouth every 6 hours as needed for Pain 28 tablet 0 ? ? penicillin v potassium (VEETIDS) 250 MG tablet Take 1 tablet by mouth 2 times daily (Patient taking differently: Take 250 mg by mouth 2 times daily Took 500 mg additional per dentist instructions) 60 tablet 5 ? ? polyethylene glycol 3350 (MIRALAX) packet Take 17 g by mouth once daily ? prochlorperazine (COMPAZINE) 10 MG tablet Take 10 mg by mouth every 6 hours as needed ?? Current Facility-Administered Medications Medication Dose Route Frequency Provider Last Rate Last Dose ? ? 0.9% NaCl injection 20 mL ??20 mL Intracatheter PRN Tiffanie Mcpherson APRN-CNP ?? 20 mL at 09/21/19 1438 ? ? calcium gluconate 5 g in 300 mL NS ??5 g Intravenous PRN Tiffanie Mcpherson APRN-ERIKA ?? Stopped at 09/21/19 1350 ? ? heparin lock flush injection 300 Units ??300 Units Intravenous PRN Tiffanie Mcpherson APRN-ERIKA ?? 300 Units at 09/21/19 1352 Physical Exam Constitutional: Patient Vitals for the past 24 hrs: BP Temp Temp src Pulse Resp SpO2 Height Weight 09/21/19 1415 133/80 98.9 ??F Oral 94 18 98 % ? ? 09/21/19 1211 143/82 98.3 ??F Oral 88 18 97 % ? ? 09/21/19 1119 144/82 ? ? 88 18 98 % ? ? 09/21/19 1036 130/75 98.6 ??F Oral 93 18 99 % ? ? 09/21/19 0923 128/80 98.1 ??F Oral 86 18 97 % ? ? 09/21/19 0741 129/86 98.1 ??F Oral 97 18 97 % 1.715 m (5' 7.5 ) 117.5 kg (259 lb) General Appearance: No acute distress, comfortable in chair Head: No nasal congestion or discharge Skin: no rashes, multiple piercing's Eyes: anicteric: Chest: lungs clear to auscultation Heart: normal S1 and S2, no murmur Abdomen: soft, non-tender, +BS Extremities: no edema Access: L IJ triple lumen Altamirano catheter, no edema, erythema or tenderness Lab and/or Imaging Studies Recent Results (from the past 24 hour(s)) TYPE AND SCREEN Collection Time: 09/21/19 ??7:25 AM Result Value Ref Range Antibody Screen NEG ?? ABO Rh A POS ?? MAGNESIUM BLOOD Collection Time: 09/21/19 ??7:27 AM Result Value Ref Range Magnesium 1.8 1.6 - 2.6 mg/dL POTASSIUM BLOOD Collection Time: 09/21/19 ??7:27 AM Result Value Ref Range Potassium 4.1 3.5 - 4.5 mmol/L CBC W AUTO DIFFERENTIAL Collection Time: 09/21/19 ??7:27 AM Result Value Ref Range WBC 92.5 (HH) 3.5 - 10.5 10? 3 /uL RBC 4.26 (L) 4.30 - 5.70 10? 6 /uL Hemoglobin 12.6 (L) 13.5 - 17.5 g/dL Hematocrit 38.3 (L) 39.0 - 50.0 % MCV 89.9 81.0 - 97.0 fL MCH 29.6 28.0 - 34.0 pg MCHC 32.9 32.0 - 36.0 g/dL Platelet Count 303 150 - 400 10? 3 /uL RDW-SD 48.9 36.0 - 50.0 fL RDW-CV 14.9 (H) 11.2 - 14.8 % MPV 10.9 9.3 - 12.8 fL nRBC Absolute 0.14 (H) 0 10? 3 /uL nRBC Auto 0.2 (H) 0 /100 WBC CALCIUM IONIZED WHOLE BLOOD Collection Time: 09/21/19 ??7:27 AM Result Value Ref Range Ionized Calcium Whole Blood 1.19 mmol/L Adjusted Ionized Calcium 1.15 (L) 1.19 - 1.34 mmol/L pH Whole Blood 7.33 (L) 7.35 - 7.45 FLOW CYTOMETRY CD34 COUNT BLOOD Collection Time: 09/21/19 ??7:27 AM Result Value Ref Range Reason for test ?B-cell lymphoma, unspecified B-cell lymphoma type, unspecified body region Client Specimen ID # ?[id number] Number of Markers 2 ?? Flow Cytometry Results ? Differential Result % Comment Total Viability ??99.0 ?? Lymph/Roberts/Gran Region Surface Marker Results % Absolute Count (cell/uL) CD34 0.08 73.260 CD45 96.93 88,763.648 Flow Cytometry Interpretation ?Testing is technical only and does not require an interpretation of results. Disclaimer ?Test performed at [facility], [address] [place] [address], [id number]. This test was developed and its performance characteristics determined by the [facility]ometry Laboratory. It has not been cleared by the [place] Food and Drug Administration (FDA). The FDA has determined that such clearance or approval is not necessary. This test is used for clinical purposes. It should not be regarded as investigational or for research. This laboratory is regulated under the Clinical Laboratory Improvement Amendments of 1998 (CLIA) as a qualified to perform high complexity clinical testing. Embedded Images ?? DIFFERENTIAL MANUAL Collection Time: 09/21/19 ??7:27 AM Result Value Ref Range WBC (corrected for NRBC) 92.5 10? 3 /uL Total Cell Count 100 ?? Neutrophils Absolute Manual 69.38 (H) 1.60 - 7.00 10? 3 /uL Lymphocyte Absolute 3.70 (H) 0.80 - 2.90 10? 3 /uL Monocytes Absolute 9.25 (H) 0.14 - 0.66 10? 3 /uL Eosinophils Absolute Manual 4.63 (H) 0.00 - 0.22 10? 3 /uL Basophil Absolute Manual 1.85 (H) 0.00 - 0.06 10? 3 /uL Band % Manual 18 (H) 0 - 10 % Neutrophil % Manual 57 30 - 60 % Lymphocyte % 4 (L) 20 - 45 % Monocytes % Manual 10 2 - 10 % Eosinophils % 5 1 - 6 % Basophils % Relative 2 0 - 3 % Atypical Lymphocyte % Manual 1 (H) 0 % Metamyelocyte % Manual 1 (H) 0 % Myelocytes % Manual 2 (H) 0 % nRBC Manual 1 (H) 0 /100 WBC Platelet Estimate Adequate Adequate Polychromasia 1+ (Abnormal) None Ovalocytes Occasional (Abnormal) None [place] Cells 1+ (Abnormal) None Tear Drop Cells Occasional (Abnormal) None Toxic Granulation 1+ (Abnormal) None Dohle Bodies 1+ (Abnormal) None CBC W AUTO DIFFERENTIAL Collection Time: 09/21/19 ??2:13 PM Result Value Ref Range WBC 66.1 (HH) 3.5 - 10.5 10? 3 /uL RBC 3.65 (L) 4.30 - 5.70 10? 6 /uL Hemoglobin 11.0 (L) 13.5 - 17.5 g/dL Hematocrit 32.7 (L) 39.0 - 50.0 % MCV 89.6 81.0 - 97.0 fL MCH 30.1 28.0 - 34.0 pg MCHC 33.6 32.0 - 36.0 g/dL Platelet Count 135 (L) 150 - 400 10? 3 /uL RDW-SD 49.0 36.0 - 50.0 fL RDW-CV 14.8 11.2 - 14.8 % MPV 9.3 9.3 - 12.8 fL nRBC Absolute 0.12 (H) 0 10? 3 /uL nRBC Auto 0.2 (H) 0 /100 WBC DIFFERENTIAL MANUAL Collection Time: 09/21/19 ??2:13 PM Result Value Ref Range WBC (corrected for NRBC) 66.1 10? 3 /uL Total Cell Count 100 ?? Neutrophils Absolute Manual 56.19 (H) 1.60 - 7.00 10? 3 /uL Lymphocyte Absolute 0.66 (L) 0.80 - 2.90 10? 3 /uL Monocytes Absolute 4.63 (H) 0.14 - 0.66 10? 3 /uL Eosinophils Absolute Manual 3.31 (H) 0.00 - 0.22 10? 3 /uL Band % Manual 28 (H) 0 - 10 % Neutrophil % Manual 57 30 - 60 % Lymphocyte % 1 (L) 20 - 45 % Monocytes % Manual 7 2 - 10 % Eosinophils % 5 1 - 6 % Metamyelocyte % Manual 2 (H) 0 % Platelet Estimate Slightly Decreased (Abnormal) Adequate Target Cells 1+ (Abnormal) None Dohle Bodies Occasional (Abnormal) None Procedures Leukapheresis Assessment and Plan Marcello Guillen is a 49 year old y.o. male with marginal zone lymphoma who presents for peripheral blood hematopoietic progenitor collection #1. This is Day 5 of his Neupogen. ?? Catheter placement was confirmed per IR note. No changes were noted in Donor History Questionnaire. Donor was stable going into collection. Pre collection Hct and Plt levels were acceptable. Post collection Hct=32.7, Erb=903 . The collection was well tolerated. The goal for this procedure ??is 2-4 x 10e6 CD34 cells/kg. Processed volume during procedure was [id number]. Yield of collection was 10.4x10e6 CD34/kg. Goal was reached. Apollo Garcia MD, PhD Tiffanie Mcpherson ADVERTISING SALES AGENT-FEEDER/FOLDER DIET ORDERABLES [facility] * IR CENTRAL LINE REMOVAL (09/17/2019 10:52 AM BUSINESS ADMINISTRATION PROGRAM CHAIR) Anatomical Region Laterality Modality X-Ray Angiograph y 09/17/2019 4:03 PM BUSINESS ADMINISTRATION PROGRAM CHAIR Narrative 09/17/2019 4:09 PM BUSINESS ADMINISTRATION PROGRAM CHAIR This is an Interventional Nephrology procedure performed on September 17, 2019 Commercial Green Retrofit Architect: Tom Lamar Leather Heel Breaster : Lizandro Hughes Attending: Darwin Hughes Note 2 separate procedures were performed. Procedures performed: 1. Insertion of tunneled Altamirano triple-lumen central venous catheter 2. Fluoroscopic guidance for central venous catheter procedure. 3. Ultrasound guidance for vascular access with permanent recording. 4. Removal of Port-A-Cath 5. Moderate sedation This patient was referred for placement of a tunneled Altamirano triple-lumen central venous catheter for therapy of Following informed consent the patient was taken to the angiography suite and placed on the fluoroscopy table. ??The skin of the right and left neck and chest was prepared with chlorhexidine and sterile drapes were applied. There was an existing Port-A-Cath in the right chest. Moderate sedation on this adult patient was ordered by me, administered intravenously in my presence, and monitored by the procedure nurse as an independent trained observer who was present throughout the procedure. The following parameters were monitored: oxygen saturation, heart rate, blood pressure, and response to care. Intra-service sedation start time was 10:21 and end time was 10:53 during which I was present. ??Total physician intra-service sedation time was 32 minutes. For details on pre-moderate sedation and post-moderate sedation patient evaluation, please review the evaluation forms in [facility]. For details on monitored clinical parameters during the intra-service sedation time, please review the procedure nurse documentation in [facility]. Under real time ultrasound guidance, the left internal jugular vein was accessed with a micropuncture needle, a coates scale image was recorded and a microfilament wire was advanced to the central veins under fluoroscopic guidance. ??This allowed the placement of a 5 Maori trocar which in turn allowed the placement of a 0.035 guidewire which was manipulated into the IVC. ??An exit site was chosen on the chest wall and anesthetized with lidocaine. ??Using a metal tunneling device, a 23 cm Altamirano triple-lumen central venous catheter was brought through a subcutaneous tunnel to the venotomy incision and prepared for insertion. ??Serial dilators were utilized to create a track to the jugular vein sufficient to accommodate a peel-away sheath which was inserted over the guidewire and the inner stylet was removed. ??The catheter was inserted through the sheath which was then removed. ??The catheter was adjusted for length under fluoroscopy such that the tip was at the junction of the SVC and RA. All lumens flushed easily and were locked with heparin. ??The catheter was sutured in place with 3-0 Vicryl and a CHG dressing and StatLock were placed. ??The venotomy incision was closed with a 3-0 Vicryl suture and sealed with Exofin. Attention was then turned to removal of an existing Port-A-Cath. Local anesthetic was infiltrated to the skin and subcutaneous tissues overlying the port. A 2 cm incision was then made. Using blunt and sharp dissection and with the aid of electrocautery the port was freed from surrounding tissues. A pursestring suture was placed around the catheter tract. The catheter portion was then withdrawn and its entirety and hemostasis secured by ligation of the pursestring suture. space was then closed with interrupted 3-0 Vicryl sutures and the skin was closed with a running 4-0 Vicryl subcuticular suture. The wound was then sealed with Exofin. A sterile dressing was applied. I was present for the entire procedure. This report was electronically signed by DARWIN HUGHES M.D. ??on 09/17/2019 4:09 PM . Tiffanie Mcpherson [facility] IR ORDERABLES * COTININE, URINE (09/09/2019 2:25 PM BUSINESS ADMINISTRATION PROGRAM CHAIR) Cotinine Urine Negative Cutoff=30 0 ng/mL 09/10/2019 7:07 PM BUSINESS ADMINISTRATION PROGRAM CHAIR [facility] ([facility]) Drug Screen Comment Comment 09/10 7:07 PM BUSINESS ADMINISTRATION PROGRAM CHAIR [facility] ([facility]) Comment: This analysis is performed by immunoassay. Positive findings are unconfirmed analytical test results; if results do not support expected clinical finding, confirmation by an alternate methodology is recommended. Patient metabolic variables, specific drug chemistry, and specimen characteristics can affect test outcome. Technical consultation is available at [email or web address], or call toll free [phone]. Urine URINE SPECIMEN OBTAINED BY CLEAN CATCH PROCEDURE / Unknown Collection / Unknown 09/09/2019 2:25 PM BUSINESS ADMINISTRATION PROGRAM CHAIR 09/09/2019 2:25 PM BUSINESS ADMINISTRATION PROGRAM CHAIR Narrative [facility] ([facility]) - 09/10/2019 7:07 PM BUSINESS ADMINISTRATION PROGRAM CHAIR Performed at: ??01 - [facility] ??[id number] Special Warfare Combatant Crewman: John Escalera PhD, Phone: ??[phone] Performed at: ??02 - [facility] [address] [place], [place] ??[id number] Special Warfare Combatant Crewman: Constantino Linares PhD, Phone: ??[phone] Tiffanie Mcpherson ADVERTISING [facility]ES [facility] - URINE LINDA MIRIAN ORDERABLES [facility] ([facility]) [address] [place] [address] * (ABNORMAL) URINALYSIS W/MICROSCOPIC NO CULTURE (09/09/2019 2:10 PM BUSINESS ADMINISTRATION PROGRAM CHAIR) Color UA Yellow Straw, Yellow, Colorless 09/09/2019 2:19 PM [facility] Clarity UA Clear Clear, Slt Cloudy 09/09/2019 2:19 PM [facility] Specific Portage UA 1.017 1.005 - 1.030 09/09/2019 2:19 PM [facility] pH UA 5.0 5.0 - 8.0 pH 09/09/2019 2:19 PM [facility] Protein UA Negative Negative mg/dL 09/09/2019 2:19 PM [facility] Glucose UA Negative Negative mg/dL 09/09/2019 2:19 PM [facility] Ketone UA Negative Negative mg/dL 09/09/2019 2:19 PM [facility] Bilirubin UA Negative Negative mg/dL 09/09/2019 2:19 PM [facility] Blood UA Negative Negative 09/09/2019 2:19 PM [facility] Nitrite UA Negative Negative 09/09/2019 2:19 PM [facility] Leukocyte Esterase Negative Negative 09/09/2019 2:19 PM [facility] Urobilinogen UA Negative Negative mg/dL 09/09/2019 2:19 PM [facility] RBC UA 0-2 None Seen, 0-2, 3-5 /HPF 09/09/2019 2:19 PM [facility] WBC UA 0-5 None Seen, 0-5 /HPF 09/09/2019 2:19 PM [facility] Bacteria UA Trace None, Trace /HPF 09/09/2019 2:19 PM [facility] Squamous Epithelial Cells UA 0-2 None Seen, 0-2 /HPF 09/09/2019 2:19 PM [facility] Mucus UA 1+ None, 1+ /LPF 09/09/2019 2:19 PM [facility] Hyaline Casts UA 3-5(A) None Seen, 0-2 /LPF 09/09/2019 2:19 PM [facility] Urine URINE SPECIMEN OBTAINED BY CLEAN CATCH PROCEDURE / Unknown Collection / Unknown 09/09/2019 2:10 PM BUSINESS ADMINISTRATION PROGRAM CHAIR 09/09/2019 2:10 PM [facility] - 09/09/2019 2:19 PM BUSINESS ADMINISTRATION PROGRAM CHAIR Tiffanie Mcpherson ADVERTISING SALES AGENT-FEEDER/FOLDER LAB - URINALYSI S ORDERABLES [facility] [address] [place] [address], [facility] [phone] * (ABNORMAL) HERPES SIMPLEX 1+2 AB IGG SPEC RFLX HSV2 (09/09/2019 12:42 PM BUSINESS ADMINISTRATION PROGRAM CHAIR) Only the most recent of2 resultswithin the time period is included. Herpes Simplex Virus I Antibody IgG Type Specific Index 9.65(H) 0.00 - 0.90 index 09/10/2019 9:09 AM BUSINESS ADMINISTRATION PROGRAM CHAIR [facility] ([facility]) Comment: ? Negative ?<0.91 ? Equivocal 0.91 - 1.09 ? Positive ?>1.09 Note: Negative indicates no antibodies detected to HSV-1. Equivocal may suggest early infection. ??If clinically appropriate, retest at later date. Positive indicates antibodies detected to HSV-1. Herpes Simplex Virus 2 Antibody IgG Type Specific <0.91 0.00 - 0.90 index 09/10/2019 9:09 AM BUSINESS ADMINISTRATION PROGRAM CHAIR [facility] ([facility]) Comment: ? Negative ?<0.91 ? Equivocal 0.91 - 1.09 ? Positive ?>1.09 Note: Negative indicates no antibodies detected to HSV-2. Equivocal may suggest early infection. ??If clinically appropriate, retest at later date. Positive indicates antibodies detected to HSV-2. Blood BLOOD SPECIMEN / Unknown Venipuncture / Unknown 09/09/2019 12:42 PM BUSINESS ADMINISTRATION PROGRAM CHAIR 09/09/2019 12:51 PM BUSINESS ADMINISTRATION PROGRAM CHAIR Narrative [facility] ([facility]) - 09/10/2019 9:09 AM BUSINESS ADMINISTRATION PROGRAM CHAIR Performed at: ??01 - [facility] [address] [place], [place] ??[id number] Special Warfare Combatant Crewman: Constantino Linares PhD, Phone: ??[phone] Tiffanie Mcpherson ADVERTISING SALES AGENT-FEEDER/FOLDER LAB - SEROLOGY ORDERABLES [facility] ([facility]) [address] [place] [address] * (ABNORMAL) DONOR PANEL [id number] (09/09/2019 12:42 PM BUSINESS ADMINISTRATION PROGRAM CHAIR) Donor Hepatitis B Surface Antigen Negative Negative 09/12/2019 11:07 AM BUSINESS ADMINISTRATION PROGRAM CHAIR [facility] ([facility]) Comment:Test performed with Bartholomew [employer] HBsAg kit. Donor Hepatitis B Core Virus Antibody Total Negative Negative 09/12/2019 11:07 AM BUSINESS ADMINISTRATION PROGRAM CHAIR [facility] ([facility]) Comment:Test performed with Bartholomew [employer]ix HBcore kit. Donor Hepatitis C Antibody Negative Negative 09/12/2019 11:07 AM BUSINESS ADMINISTRATION PROGRAM CHAIR [facility] ([facility]) Comment:Test performed with Bartholomew Prism HCV kit. Donor Syphilis (T pallidum) Non Reactive Non Reactive 09/12/2019 11:07 AM BUSINESS ADMINISTRATION PROGRAM CHAIR [facility] ([facility]) Comment:Test performed with [employer] PK TP kit. Donor Cytomegalovirus Total Antibody Reactive(A) Non Reactive 09/12/2019 11:07 AM BUSINESS ADMINISTRATION PROGRAM CHAIR [facility] ([facility]) Comment:Test performed with [place] [employer] Capture-CMV IgG and IgM kit. Donor HIV-1/O/2 Antibody Negative Negative 09/12/2019 11:07 AM BUSINESS ADMINISTRATION PROGRAM CHAIR [facility] ([facility]) Comment:Test performed with Bartholomew [employer] HIV O Plus kit. Donor HIV-1/HCV/HBV Comment Non Reactive 09/12/2019 11:07 AM BUSINESS ADMINISTRATION PROGRAM CHAIR [facility] ([facility]) Comment: ?Non-Reactive for HIV-1 and HIV-2 RNA ?Non-Reactive for HCV RNA ?Non-Reactive for HBV DNA Test performed with Bernard MPX kit. Donor HTLV-I/II Antibodies Qual Negative Negative 09/12/2019 11:07 AM BUSINESS ADMINISTRATION PROGRAM CHAIR [facility] ([facility]) Comment:Test performed with Bartholomew Prism HTLV-I/HTLV-II assay. Donor Zika Virus MEL Assay Non Reactive Non Reactive 09/12/2019 11:07 AM BUSINESS ADMINISTRATION PROGRAM CHAIR [facility] ([facility]) Comment:Test performed with Bernard Zika kit. Donor WNV MEL Assay Non Reactive Non Reactive 09/12/2019 11:07 AM BUSINESS ADMINISTRATION PROGRAM CHAIR [facility] ([facility]) Comment:Test performed with Bernard WNV kit. Donor T cruzi (Chagas) Non Reactive Non Reactive 09/12/2019 11:07 AM BUSINESS ADMINISTRATION PROGRAM CHAIR [facility] ([facility]) Comment:Test performed with Bartholomew Prism Chagas assay. Blood BLOOD SPECIMEN / Unknown Venipuncture / Unknown 09/09/2019 12:42 PM BUSINESS ADMINISTRATION PROGRAM CHAIR 09/09/2019 2:36 PM BUSINESS ADMINISTRATION PROGRAM CHAIR Narrative [facility] ([facility]) - 09/12/2019 11:07 AM BUSINESS ADMINISTRATION PROGRAM CHAIR Performed at: ??01 - [employer] [address] ??[id number] Special Warfare Combatant Crewman: Rosalia Parra PhD, Phone: ??[phone] Tiffanie Mcpherson ADVERTISING SALES AGENT-FEEDER/FOLDER LAB - CHEMISTRY ORDERABLES Performing Organization Address City/State/[facility] Co de Phone Number [facility] ([facility]) [address] [place] [address] * QUANTIFERON-TB GOLD PLUS 4-TUBE (09/09/2019 12:42 PM BUSINESS ADMINISTRATION PROGRAM CHAIR) Only the most recent of2 resultswithin the time period is included. QuantiFERON Criteria Comment 09/13/2019 12:06 AM BUSINESS ADMINISTRATION PROGRAM CHAIR [facility] ([facility]) Comment: The QuantiFERON-TB Gold Plus result is determined by subtracting the Nil value from either TB antigen (Ag) tube. The mitogen tube serves as a control for the test. QuantiFERON TB1 Ag Value 0.25 IU/mL 09/13/2019 12:06 AM BUSINESS ADMINISTRATION PROGRAM CHAIR [facility] ([facility]) QuantiFERON TB2 Ag Value 0.09 IU/mL 09/13/2019 12:06 AM BUSINESS ADMINISTRATION PROGRAM CHAIR [facility] ([facility]) QuantiFERON Nil Value 0.03 IU/mL 09/13/2019 12:06 AM BUSINESS ADMINISTRATION PROGRAM CHAIR [facility] ([facility]) QuantiFERON Mitogen Value >10.00 IU/mL 09/13/2019 12:06 AM BUSINESS ADMINISTRATION PROGRAM CHAIR [facility] ([facility]) QuantiFERON-TB Gold Plus Negative Negative 09/13/2019 12:06 AM [facility] ([facility]) Comment: The specimen received for QuantiFERON testing was incubated by the ordering institution. ??Specific procedures outlined in our Directory of Services and in the package insert for the QuantiFERON Gold (In Tube) test must be followed to enable for proper stimulation of cells for the production of interferon gamma. Blood BLOOD SPECIMEN / Unknown Venipuncture / Unknown 09/09/2019 12:42 PM BUSINESS ADMINISTRATION PROGRAM CHAIR 09/09/2019 1:20 PM BUSINESS ADMINISTRATION PROGRAM CHAIR [facility]ative [facility]) - 09/13/2019 12:06 AM BUSINESS ADMINISTRATION PROGRAM CHAIR Performed at: ??01 - [facility] [address] ??[id number] Special Warfare Combatant Crewman: Constantino Linares PhD, Phone: ??[phone] Tiffanie Mcpherson ADVERTISING [facility]ES [facility] - CHEMISTRY ORDERABLES Performing Organization Address [facility]/ZIP Co de Phone Number [facility]) [address] [place] [address] * URIC ACID BLOOD (09/09/2019 12:42 PM BUSINESS ADMINISTRATION PROGRAM CHAIR) Only the most recent of2 resultswithin the time period is included. Uric Acid 6.4 2.6 - 7.2 mg/dL 09/09/2019 1:26 PM BUSINESS ADMINISTRATION PROGRAM CHAIR [facility] Blood BLOOD SPECIMEN / Unknown Venipuncture / Unknown 09/09/2019 12:42 PM BUSINESS ADMINISTRATION PROGRAM CHAIR 09/09/2019 12:50 PM BUSINESS ADMINISTRATION PROGRAM CHAIR Tiffanie Mcpherson [facility] LAB - CHEMISTRY ORDERABLES [address] [phone] * ISA-JUAN VIRUS ANTIBODY TO VCA IGM (09/09/2019 12:42 PM BUSINESS ADMINISTRATION PROGRAM CHAIR) Isa-Juan Virus Antibody IgM Viral Capsid Antigen <10.0 0.0 - 43.9 U/mL 09/10/2019 4:34 PM BUSINESS ADMINISTRATION PROGRAM CHAIR [facility] ([facility]) Comment: INTERPRETIVE INFORMATION: Isa-Juan Virus Antibody to ?Viral Capsid Antigen, IgM ??35.9 U/mL or less.......Not Detected ?36.0-43.9 U/mL..........Indeterminate - Repeat testing in ?10-14 days may be helpful. ??44.0 U/mL or greater....Detected Performed by [facility], [address] [place] [address] [email or web address], Toribio Elizondo MD, Lab. Director Blood BLOOD SPECIMEN / Unknown Venipuncture / Unknown 09/09/2019 12:42 PM BUSINESS ADMINISTRATION PROGRAM CHAIR 09/09/2019 12:51 PM BUSINESS ADMINISTRATION PROGRAM CHAIR Tiffanie Mcpherson ADVERTISING SALES AGENT-FEEDER/FOLDER LAB - SEROLOGY ORDERABLES Performing Organization Address City/State/[facility] Co de Phone Number [facility] [employer] ([facility]) [address] * VARICELLA ZOSTER ANTIBODY IGM (09/09/2019 12:42 PM BUSINESS ADMINISTRATION PROGRAM CHAIR) Varicella zoster Virus Antibody IgM <0.91 0.00 - 0.90 index 09/10/2019 3:08 PM BUSINESS ADMINISTRATION PROGRAM CHAIR [facility] ([facility]) Comment: ? Negative ?<0.91 ? Borderline ??0.91 - 1.09 ? Positive ?>1.09 Blood BLOOD SPECIMEN / Unknown Venipuncture / Unknown 09/09/2019 12:42 PM BUSINESS ADMINISTRATION PROGRAM CHAIR 09/09/2019 12:51 PM BUSINESS ADMINISTRATION PROGRAM CHAIR Narrative [facility] ([facility]) - 09/10/2019 3:08 PM BUSINESS ADMINISTRATION PROGRAM CHAIR Performed at: ??01 - [facility] [address] [place], [place] ??[id number] Special Warfare Combatant Crewman: Constantino Linares PhD, Phone: ??[phone] Tiffanie Mcpherson ADVERTISING SALES AGENT-FEEDER/FOLDER LAB - CHEMISTRY ORDERABLES Performing Organization Address City/State/[facility] Co de Phone Number [facility] ([facility]) [address] [place] [address] * (ABNORMAL) ISA-JUAN VIRUS ANTIBODY TO VCA IGG (09/09/2019 12:42 PM BUSINESS ADMINISTRATION PROGRAM CHAIR) Isa-Juan Virus Antibody IgG Viral Capsid Antigen 168.0(H) 0.0 - 21.9 U/mL 09/10/2019 4:38 PM BUSINESS ADMINISTRATION PROGRAM CHAIR [employer] ([facility]) Comment: INTERPRETIVE INFORMATION: Isa-Juan Virus Antibody to ?Viral Capsid Antigen, IgG ??17.9 U/mL or less.......Not Detected ??18.0-21.9 U/mL..........Indeterminate - Repeat testing in ?10-14 days may be helpful. ??22.0 U/mL or greater....Detected Performed by [facility], [facility] [place] [address] [email or web address], Toribio Elizondo MD, Lab. Director Blood BLOOD SPECIMEN / Unknown Venipuncture / Unknown 09/09/2019 12:42 PM BUSINESS ADMINISTRATION PROGRAM CHAIR 09/09/2019 12:51 PM BUSINESS ADMINISTRATION PROGRAM CHAIR Lara Buss ADVERTISING [facility]ES [facility] LAB - CHEMISTRY ORDERABLES [facility] ([facility]) [address] [place] [address], [facility] * SICKLE CELL SCREEN (09/09/2019 12:42 PM BUSINESS ADMINISTRATION PROGRAM CHAIR) Sickle Cell Screen Negative Negative 09/09/2019 1:17 PM BUSINESS ADMINISTRATION PROGRAM CHAIR [facility] Blood BLOOD SPECIMEN / Unknown Venipuncture / Unknown 09/09/2019 12:42 PM BUSINESS ADMINISTRATION PROGRAM CHAIR 09/09/2019 12:50 PM BUSINESS ADMINISTRATION PROGRAM CHAIR Lara Patrick [facility] LAB - HEMATOLOG Y ORDERABLES Performing Organization Address [facility]/ZIP Co de Phone Number [address] [phone] * (ABNORMAL) TRIGLYCERIDES BLOOD (09/09/2019 12:42 PM BUSINESS ADMINISTRATION PROGRAM CHAIR) Triglycerides 192(H) <150 mg/dL 09/09/2019 1:26 PM BUSINESS ADMINISTRATION PROGRAM CHAIR [facility] Comment: ATP III Classification of Triglycerides: ?<150 mg/dL: ??Normal ? 150 - 199 mg/dL: ??Borderline High ? 200 - 400 mg/dL: ??High ?>500 mg/dL: ??Very High Blood BLOOD SPECIMEN / Unknown Venipuncture / Unknown 09/09/2019 12:42 PM BUSINESS ADMINISTRATION PROGRAM CHAIR 09/09/2019 12:50 PM BUSINESS ADMINISTRATION PROGRAM CHAIR Lara Patrick [facility] LAB - CHEMISTRY ORDERABLES Performing Organization Address [facility]/ZIP Co de Phone Number [address] [phone] * PROSTATE SPECIFIC ANTIGEN SCREEN (09/09/2019 12:42 PM BUSINESS ADMINISTRATION PROGRAM CHAIR) [facility] PSA Total 2.7 0.0 - 4.0 ng/mL 09/09/2019 1:35 PM BUSINESS ADMINISTRATION PROGRAM CHAIR [facility] Blood BLOOD SPECIMEN / Unknown Venipuncture / Unknown 09/09/2019 12:42 PM BUSINESS ADMINISTRATION PROGRAM CHAIR 09/09/2019 12:50 PM BUSINESS ADMINISTRATION PROGRAM CHAIR Tiffanie Mcpherson [facility] LAB - CHEMISTRY ORDERABLES Performing Organization Address [facility]/ZIP Co de Phone Number [address] [phone] * (ABNORMAL) HEPATITIS B SURFACE ANTIBODY (09/09/2019 12:42 PM BUSINESS ADMINISTRATION PROGRAM CHAIR) [facility] Hepatitis B Virus Surface Antibody Reactive( A) Non-react robyn 09/09/2019 1:46 PM BUSINESS ADMINISTRATION PROGRAM CHAIR [facility] Comment: > 12 mIU/mL Hepatitis B surface Antibody (HBsAb). Reactive for HBsAb - individual is considered immune to Hepatitis B Virus infection. Hepatitis B Surface Antibody Quantitative 156.2(H) <8.0 mIU/mL 09/09/2019 1:46 PM BUSINESS ADMINISTRATION PROGRAM CHAIR [facility] Comment: Hepatitis B Surface Antibody Numeric Result Interpretation: ? Nonreactive: ?<8.0 mIU/mL ? Indeterminate: ??8.0 - 12.0 mIU/mL ? Reactive: ?>12.0 mIU/mL ? Blood BLOOD SPECIMEN / Unknown Venipuncture / Unknown 09/09/2019 12:42 PM BUSINESS ADMINISTRATION PROGRAM CHAIR 09/09/2019 12:51 PM BUSINESS ADMINISTRATION PROGRAM CHAIR Tiffanie Mcpherson [facility] LAB - CHEMISTRY ORDERABLES Performing Organization Address [facility]/ZIP Co de Phone Number [address] [phone] * (ABNORMAL) CHOLESTEROL BLOOD (09/09/2019 12:42 PM BUSINESS ADMINISTRATION PROGRAM CHAIR) [facility] Cholesterol Total 214(H) <200 mg/dL 09/09/2019 1:15 PM BUSINESS ADMINISTRATION PROGRAM CHAIR [facility] Blood BLOOD SPECIMEN / Unknown Venipuncture / Unknown 09/09/2019 12:42 PM BUSINESS ADMINISTRATION PROGRAM CHAIR 09/09/2019 12:50 PM BUSINESS ADMINISTRATION PROGRAM CHAIR Tiffanie Mcpherson ADVERTISING SALES [facility] LAB - CHEMISTRY ORDERABLES [address] [phone] * HEPATITIS C ANTIBODY (09/09/2019 12:42 PM BUSINESS ADMINISTRATION PROGRAM CHAIR) Only the most recent of2 resultswithin the time period is included. [facility] Hepatitis C Antibody Non-react robyn Non-reac tive 09/09/2019 1:46 PM BUSINESS ADMINISTRATION PROGRAM CHAIR [facility] Comment: Hepatitis C Antibody screen [...] Unknown Venipuncture / Unknown 09/09/2019 12:42 PM BUSINESS ADMINISTRATION PROGRAM CHAIR 09/09/2019 12:51 PM BUSINESS ADMINISTRATION PROGRAM CHAIR Tiffanie Alvess ADVERTISING SALES AGENT-[facility] - CHEMISTRY ORDERABLES Performing Organization Address City/[facility]/ZIP Co de Phone Number [address] [phone] * HEPATITIS A IGM ANTIBODY (09/09/2019 12:42 PM BUSINESS ADMINISTRATION PROGRAM CHAIR) [facility] Hepatitis A Virus Antibody IgM Non-reacti ve Non-reacti ve 09/09/2019 1:46 PM BUSINESS ADMINISTRATION PROGRAM CHAIR [facility] Blood BLOOD SPECIMEN / Unknown Venipuncture / Unknown 09/09/2019 12:42 PM BUSINESS ADMINISTRATION PROGRAM CHAIR 09/09/2019 12:51 PM BUSINESS ADMINISTRATION PROGRAM CHAIR Tiffanie Mcpherson ADVERTISING SALES AGENT-[facility] - CHEMISTRY ORDERABLES [address] [address], [place] [phone] * (ABNORMAL) HEPATITIS A ANTIBODY (09/09/2019 12:42 PM BUSINESS ADMINISTRATION PROGRAM CHAIR) Hepatitis A Virus Antibody Total Positive(A ) Negative 09/10/2019 9:09 AM BUSINESS ADMINISTRATION PROGRAM CHAIR [facility] ([facility]) Blood BLOOD SPECIMEN / Unknown Venipuncture / Unknown 09/09/2019 12:42 PM BUSINESS ADMINISTRATION PROGRAM CHAIR 09/09/2019 12:51 PM BUSINESS ADMINISTRATION PROGRAM CHAIR Narrative [facility] ([facility]) - 09/10/2019 9:09 AM BUSINESS ADMINISTRATION PROGRAM CHAIR Performed at: ??01 - [facility] [address] [place], [place] ??[id number] Special War[employer] Combatant Crewman: Constantino Linares PhD, Phone: ??[phone] Tiffanie Mcpherson ADVERTISING SALES AGENT-FEEDER/FOLDER LAB - CHEMISTRY ORDERABLES [facility]) [address] [place] [address], [facility] * (ABNORMAL) HSV 2 IGG CONFIRMATION RFLXED (09/09/2019 12:41 PM BUSINESS ADMINISTRATION PROGRAM CHAIR) Pathologist [facility] Herpes Simplex Virus 2 Antibody IgG Confirmation Positive( A) Negative 09/11/2019 4:09 PM BUSINESS ADMINISTRATION PROGRAM CHAIR [facility] ([facility]) Comment: HSV-2 IgG ?HSV-2 IgG Type Specific ?Confirmation ?Interpretation Positive/Equivocal ?? Positive ?Indicates the presence ? of detectable IgG ? antibodies to HSV-2. Positive/Equivocal ?? Negative ?Unable to confirm the ? presence of IgG ? antibodies to HSV-2. ? Recommend retesting ? in 2-4 weeks. Blood BLOOD SPECIMEN / Unknown Venipuncture / Unknown 09/09/2019 12:41 PM BUSINESS ADMINISTRATION PROGRAM CHAIR 09/09/2019 12:51 PM BUSINESS ADMINISTRATION PROGRAM CHAIR Narrative [facility] ([facility]) - 09/11/2019 4:09 PM BUSINESS ADMINISTRATION PROGRAM CHAIR Performed at: ??01 - [facility] [address] [place], [place] ??[id number] Special Warfare Combatant Crewman: Constantino Linares PhD, Phone: ??[phone] Tiffanie Mcpherson ADVERTISING SALES AGENT-FEEDER/FOLDER LAB - SEROLOGY ORDERABLES [facility] ([facility]) [address] [place] [address], [facility] * CYTOMEGALOVIRUS ANTIBODY IGM BLOOD (09/09/2019 12:41 PM BUSINESS ADMINISTRATION PROGRAM CHAIR) Cytomegalovirus Antibody IgM <30.0 0.0 - 29.9 AU/mL 09/11/2019 8:18 AM BUSINESS ADMINISTRATION PROGRAM CHAIR [facility] ([facility]) Comment: ?Negative ? <30.0 ?Equivocal ??30.0 - 34.9 ?Positive ? >34.9 A positive result is generally indicative of acute infection, reactivation or persistent IgM production. Blood BLOOD SPECIMEN / Unknown Venipuncture / Unknown 09/09/2019 12:41 PM BUSINESS ADMINISTRATION PROGRAM CHAIR 09/09/2019 12:51 PM BUSINESS ADMINISTRATION PROGRAM CHAIR Narrative [facility] ([facility]) - 09/11/2019 8:18 AM BUSINESS ADMINISTRATION PROGRAM CHAIR Performed at: ??01 - [facility] [address] [place], [place] ??[id number] Special Warfare Combatant Crewman: Constantino Linares PhD, Phone: ??[phone] Tiffanie Mcpherson ADVERTISING SALES AGENT-FEEDER/FOLDER LAB - CHEMISTRY ORDERABLES [facility] ([facility]) [address] [place] [address], [facility] * (ABNORMAL) CYTOMEGALOVIRUS ANTIBODY IGG BLOOD (09/09/2019 12:41 PM BUSINESS ADMINISTRATION PROGRAM CHAIR) Only the most recent of2 resultswithin the time period is included. Cytomegalovirus Antibody IgG 2.00(H) 0.00 - 0.59 U/mL 09/11/2019 8:18 AM BUSINESS ADMINISTRATION PROGRAM CHAIR [facility] ([facility]) Comment: ? Negative ?<0.60 ? Equivocal ?? 0.60 - 0.69 ? Positive ?>0.69 Blood BLOOD SPECIMEN / Unknown Venipuncture / Unknown 09/09/2019 12:41 PM BUSINESS ADMINISTRATION PROGRAM CHAIR 09/09/2019 12:51 PM BUSINESS ADMINISTRATION PROGRAM CHAIR Narrative [facility] ([facility]) - 09/11/2019 8:18 AM BUSINESS ADMINISTRATION PROGRAM CHAIR Performed at: ??01 - [facility] [address] [facility], [place], [place] ??[id number] Special Warfare Combatant Crewman: Constantino Linares PhD, Phone: ??[phone] Tiffanie Mcpherson ADVERTISING SALES AGENT-FEEDER/FOLDER LAB - CHEMISTRY ORDERABLES [facility] ([facility]) [address] [place] [address], [facility] * (ABNORMAL) HERPES SIMPLEX 1+2 ANTIBODY IGG/IGM PANEL (09/09/2019 12:41 PM BUSINESS ADMINISTRATION PROGRAM CHAIR) Herpes Simplex Virus Antibody IgM I/II Combination Ratio <0.91 0.00 - 0.90 Ratio 09/11/2019 4:09 PM BUSINESS ADMINISTRATION PROGRAM CHAIR [facility] ([facility]) Comment: ? Negative ?<0.91 ? Equivocal 0.91 - 1.09 ? Positive ?>1.09 Herpes Simplex Virus I Antibody IgG Type Specific Index 9.29(H) 0.00 - 0.90 index 09/11/2019 4:09 PM BUSINESS ADMINISTRATION PROGRAM CHAIR [facility] ([facility]) Comment: ? Negative ?<0.91 ? Equivocal 0.91 - 1.09 ? Positive ?>1.09 Note: Negative indicates no antibodies detected to HSV-1. Equivocal may suggest early infection. ??If clinically appropriate, retest at later date. Positive indicates antibodies detected to HSV-1. Herpes Simplex Virus 2 Antibody IgG Type Specific 0.93(H) 0.00 - 0.90 index 09/11/2019 4:09 PM BUSINESS ADMINISTRATION PROGRAM CHAIR [facility] ([facility]) Comment: A second sample should be collected and tested no less than 2-4 weeks. ? Negative ?<0.91 ? Equivocal 0.91 - 1.09 ? Positive ?>1.09 Note: Negative indicates no antibodies detected to HSV-2. Equivocal may suggest early infection. ??If clinically appropriate, retest at later date. Positive indicates antibodies detected to HSV-2. Blood BLOOD SPECIMEN / Unknown Venipuncture / Unknown 09/09/2019 12:41 PM BUSINESS ADMINISTRATION PROGRAM CHAIR 09/09/2019 12:51 PM BUSINESS ADMINISTRATION PROGRAM CHAIR Narrative [facility] ([facility]) - 09/11/2019 4:09 PM BUSINESS ADMINISTRATION PROGRAM CHAIR Performed at: ??01 - [facility] [address] [place], [place] ??[phone] Special Warfare Combatant Crewman: Constantino Linares PhD, Phone: ??[phone] Tiffanie Mcpherson ADVERTISING SALES AGENT-FEEDER/FOLDER LAB - CHEMISTRY ORDERABLES Performing Organization Address [facility]/State/ZIP Co de Phone Number [facility] ([facility]) [address] [place] [address] * HEPATITIS B CORE ANTIBODY (09/09/2019 12:41 PM BUSINESS ADMINISTRATION PROGRAM CHAIR) Only the most recent of2 resultswithin the time period is included. HBc Antibody Total Non-reacti ve Non-reacti ve 09/09/2019 2:21 PM BUSINESS ADMINISTRATION PROGRAM CHAIR [facility] Blood BLOOD SPECIMEN / Unknown Venipuncture / Unknown 09/09/2019 12:41 PM BUSINESS ADMINISTRATION PROGRAM CHAIR 09/09/2019 12:51 PM BUSINESS ADMINISTRATION PROGRAM CHAIR Tiffanie Mcpherson ADVERTISING SALES AGENT-FEEDER/FOLDER LAB - CHEMISTRY ORDERABLES [address] [phone] * HEPATITIS B SURFACE ANTIGEN W RFLX CONFIRMATION (09/09/2019 12:41 PM BUSINESS ADMINISTRATION PROGRAM CHAIR) Only the most recent of2 resultswithin the time period is included. Hepatitis B Virus Surface Antigen Non-reacti ve Non-reacti ve 09/09/2019 1:48 PM BUSINESS ADMINISTRATION PROGRAM CHAIR [facility] Blood BLOOD SPECIMEN / Unknown Venipuncture / Unknown 09/09/2019 12:41 PM BUSINESS ADMINISTRATION PROGRAM CHAIR 09/09/2019 12:51 PM BUSINESS ADMINISTRATION PROGRAM CHAIR Tiffanie Mcpherson ADVERTISING SALES [employer] LAB - CHEMISTRY ORDERABLES Performing Organization Address City/[facility]/ZIP Co de Phone Number [address] [phone] * (ABNORMAL) IGM BLOOD (09/09/2019 12:41 PM BUSINESS ADMINISTRATION PROGRAM CHAIR) Only the most recent of2 resultswithin the time period is included. IgM 19(L) 22 - 293 mg/dL 09/09/2019 1:46 PM BUSINESS ADMINISTRATION PROGRAM CHAIR [facility] Blood BLOOD SPECIMEN / Unknown Venipuncture / Unknown 09/09/2019 12:41 PM BUSINESS ADMINISTRATION PROGRAM CHAIR 09/09/2019 12:51 PM BUSINESS ADMINISTRATION PROGRAM CHAIR Tiffanie Mcpherson ADVERTISING SALES [employer] LAB - CHEMISTRY ORDERABLES [address] [address], [place] [phone] * IGA BLOOD (09/09/2019 12:41 PM BUSINESS ADMINISTRATION PROGRAM CHAIR) Only the most recent of2 resultswithin the time period is included. IgA 92 87 - 534 mg/dL 09/09/2019 1:46 PM BUSINESS ADMINISTRATION PROGRAM CHAIR [facility] Blood BLOOD SPECIMEN / Unknown Venipuncture / Unknown 09/09/2019 12:41 PM BUSINESS ADMINISTRATION PROGRAM CHAIR 09/09/2019 12:51 PM BUSINESS ADMINISTRATION PROGRAM CHAIR Tiffanie Alvess [facility] LAB - CHEMISTRY ORDERABLES [address] [phone] * HOLD SPECIMEN DNA TISSUE (09/09/2019 12:30 PM BUSINESS ADMINISTRATION PROGRAM CHAIR) Only the most recent of2 resultswithin the time period is included. Pathologist [facility] HOLD SPECIMEN DNA RESULT 31 ng/uL 09/17/2019 3:07 PM BUSINESS ADMINISTRATION PROGRAM CHAIR [facility] BONE MARROW SPECIMEN / Unknown 09/09/2019 12:30 PM BUSINESS ADMINISTRATION PROGRAM CHAIR 09/09/2019 12:49 PM BUSINESS ADMINISTRATION PROGRAM CHAIR Narrative [facility] - 09/17/2019 3:07 PM BUSINESS ADMINISTRATION PROGRAM CHAIR No specific testing was performed at this time. The DNA will be stored for future testing. This test was developed and its performance characteristics determined by the [facility] Diagnostic [facility] at [facility]. ??It has not been cleared or approved by the U.S. Food and Drug Administration. ??The FDA has determined that such clearance or approval is not necessary. ??This test is used for clinical purposes. ??It should not be regarded as investigational or for research. ??This laboratory is certified under the Clinical Laboratory Improvement Amendments of 1988 (CLIA-88) as qualified to preform high complexity clinical laboratory testing. Lara Buss ADVERTISING SALES AGENT-[facility] - PATHOLOGY /CYTOLOGY ORDERABLES [facility] [address] [place] [facility] [place] [address], [facility] [phone] * XR PANOREX (09/09/2019 11:55 AM BUSINESS ADMINISTRATION PROGRAM CHAIR) Anatomical Region Laterality Modality Head Radiographic Chayito ging 09/09/2019 11:5 1 AM BUSINESS ADMINISTRATION PROGRAM CHAIR Impressions 09/09/2019 3:27 PM BUSINESS ADMINISTRATION PROGRAM CHAIR IMPRESSION: All teeth are missing. Intact osseous structures. Report drafted by Yg Lee M.D. (resident) Dr. EMILIA Harris M.D. have personally reviewed and interpreted this examination/study. This report was electronically signed by EMILIA LA M.D. ??on 09/09/2019 3:27 PM . Narrative 09/09/2019 3:27 PM BUSINESS ADMINISTRATION PROGRAM CHAIR EXAMINATION: Panorex HISTORY: Z01.818: Pre-transplant evaluation for stem cell transplant COMPARISON: None. FINDINGS: Nasal and ear jewelry is seen. All teeth are missing. ??The mandible and temporomandibular joints are intact. Lucencies in the central mandibular roots. Procedure Note Emilia La MD - 09/09/2019 EXAMINATION: Panorex HISTORY: Z01.818: Pre-transplant evaluation for stem cell transplant COMPARISON: None. FINDINGS: Nasal and ear jewelry is seen. All teeth are missing. The mandible and temporomandibular joints are intact. Lucencies in the central mandibular roots. IMPRESSION: All teeth are missing. Intact osseous structures. Report drafted by Yg Lee M.D. (resident) Dr. EMILIA Harris M.D. have personally reviewed and interpreted this examination/study. This report was electronically signed by EMILIA LA M.D. on 09/09/2019 3:27 PM . Lara Buss ADVERTISING SALES AGENT-FEEDER/FOLDER DIAGNOSTIC IMAG ING ORDERABLES * EKG 12-LEAD (09/09/2019 11:08 AM BUSINESS ADMINISTRATION PROGRAM CHAIR) Ventricular Rate 73 BPM [facility] Atrial Rate 73 BPM [facility] P-R Interval 144 ms [facility] QRS Duration ms 76 ms [facility] Q-T Interval ms 380 ms [facility] QTC Calculation (Bezet) 418 ms [facility] Calculated P [place] 33 degrees [facility] Calculated R [place] 82 degrees [facility] Calculated T [place] 66 degrees [facility] MUSE Interpretation EKG NORMAL SINUS RHYTHM NORMAL ECG NO PREVIOUS ECGS AVAILABLE Confirmed by Vickey Mensah ([id number]), purchase request editor RENALDO LOONEY ([id number]) on 09/17/2019 6:11:29 PM Also confirmed by Vickey Mensah ([id number]), purchase request editor Elida Graham ([id number]) ??on 12/31/2019 3:14:02 PM [facility] MUSE 09/09/2019 11:0 8 AM BUSINESS ADMINISTRATION PROGRAM CHAIR 12/31/2019 3:14 PM CDT Tiffanie Mcpherson APRN-[facility] ECG ORDERABLES [facility] MUSE * GLUCOSE - POINT OF CARE (08/18/2019 4:51 AM BUSINESS ADMINISTRATION PROGRAM CHAIR) Only the most recent of3 resultswithin the time period is included. [facility] Glucose WB/POC 103 70 - 115 mg/dL 08/18/2019 7:09 AM [facility] Specimen Type Arterial/C apillary 08/18/2019 7:09 AM [facility] Blood BLOOD SPECIMEN / Unknown 08/18/2019 4:51 AM BUSINESS ADMINISTRATION PROGRAM CHAIR 08/18/2019 7:09 AM BUSINESS ADMINISTRATION PROGRAM CHAIR Chloe Kent MD LAB - POINT OF CARE ORDERABLES [address] [phone] * LAB MISC TEST (NOT BLOOD) (08/17/2019 12:55 PM BUSINESS ADMINISTRATION PROGRAM CHAIR) Test Name Annexin A1 with Interpretation 08/27/2019 10:55 AM [facility] REF LAB NON INTERF Test Result See Scanned Report 08/27 10:55 AM [facility] REF LAB NON INTERF Comment Ref Lab 08/27/2019 10:55 AM [facility] REF LAB NON INTERF Other ENTIRE SPLEEN / Unknown Collection / Unknown 08/17/2019 12:55 PM BUSINESS ADMINISTRATION PROGRAM CHAIR 08/18/2019 3:31 PM BUSINESS ADMINISTRATION PROGRAM CHAIR Chloe Kent MD LAB - BODY FLUID ORD ERABLES [facility] REF LAB NON INTERF [address] * ARTERIAL LINE PERFORMABLE (08/17/2019 8:32 AM BUSINESS ADMINISTRATION PROGRAM CHAIR) Narrative Fidel Mistry DO - 08/17/2019 8:32 AM BUSINESS ADMINISTRATION PROGRAM CHAIR Fidel Mistry, DO ? 08/17/2019 ??8:32 AM Arterial Line Placement Procedure Note Patient Location: OR. Procedure: Arterial Line ([id number]). Procedure Section ?? Indications: hypotension, continuous blood pressure monitoring and blood sampling needed. Consent: informed consent was obtained for the procedure, including sedation. Skin Prep: Chloraprep. Location: right radial. Site Identification: palpation and ultrasound guided with sterile sleeve and gel. Sterile Technique: cap and mask. Gauge: 20. Catheter Type: Arrow. Seldinger Technique Used? ??Yes Number of Attempts: 2. Line Secured with: Tegaderm. Procedure Tolerance: performed while patient under general anesthesia. Events: none. Staff Section ?? Anesthesia Provider: Fidel Mistry DO, Performed the procedure Provider #1: Rodney Light MD. Rodney Light MD GENERAL ANESTHESIA O RDERABLES * ETT LINE PERFORMABLE (08/17/2019 8:31 AM BUSINESS ADMINISTRATION PROGRAM CHAIR) Narrative Fidel Mistry DO - 08/17/2019 8:31 AM BUSINESS ADMINISTRATION PROGRAM CHAIR Fidel Mitsry DO ? 08/17/2019 ??8:32 AM Endotracheal Tube Placement: ? Patient Location: OR. Intubation Event Date/Time: ??08/17/2019 7:41 AM Procedure: intubation ([id number]). Procedure Section: ?? Sedation: under general anesthesia. Indications for Airway Management: ??anesthesia Induction: standard IV Patient Position: ??sniffing and supine Mask Ventilation: difficult and required 2 people (2 handed). Blade Type: Ramiro Blade Size: 4 Laryngoscopy View: grade 1 (full cords) Intubation Adjuncts: stylet Tube: endotracheal tube Placement: oral Tube type: cuff - inflated Tube Size (MM): 8 Measured From: lips Cuff Inflated With: air Number of Attempts: 1. Placement Verified By: direct visualization, bilateral breath sounds, chest auscultation and CO2 monitor Tube secured with: ??adhesive tape. Difficult Airway? ??No. Procedure Start Time: 08/17/2019 7:41 AM. Staff Section ?? Anesthesia Provider: Fidel Mistry DO, Performed the procedure Provider #1: Rodney Light MD. Rodney Light MD GENERAL ANESTHESIA O RDERABLES * PREPARE (CROSSMATCH) RBC UNIT(S), 2 Units (08/17/2019 6:58 AM BUSINESS ADMINISTRATION PROGRAM CHAIR) Unit Description LR IRR Red Cells [facility] BLOOD [facility]ANK LAB Unit ABO A [facility] Unit Rh POS [facility] Product Code RU1 [facility] BLO OD BANK LAB Unit Donor # [id number] 3 [facility] B[facility] Unit Status released [facility] BLOO D BANK LAB Product Number [id number] [facility] B LOOD BANK LAB Blood Type Barcode 6200 [facility] Unit Description LR IRR Red Cells [facility] Unit ABO A [facility] Unit Rh POS [facility] B[facility] Product Code RU1 [facility] BLO OD BANK LAB Unit Donor # [id number] 5 [facility] BLOOD [facility] LAB Unit Status released [facility] BLOO D BANK LAB Product Number [id number] [facility] B LOOD BANK LAB Blood Type Barcode 6200 [facility] BLOOD [facility] LAB Blood Bank BLOOD SPECIMEN / Unknown 08/17/2019 6:58 AM BUSINESS ADMINISTRATION PROGRAM CHAIR 08/17/2019 6:58 AM BUSINESS ADMINISTRATION PROGRAM CHAIR Elkin Shahid MD LAB - BLOOD BANK ORD ERABLES [facility] B[facility] LAB [address] * NE LIVER ELASTOGRAPHY (08/15/2019 9:31 PM BUSINESS ADMINISTRATION PROGRAM CHAIR) Narrative Travon Merchant MD - 08/15/2019 9:31 PM BUSINESS ADMINISTRATION PROGRAM CHAIR Travon Merchant MD ? 08/15/2019 ??9:31 PM Diagnosis: Pre transplant evaluation RN verified patient has no implanted devices and NPO for prior 3 hours. Vital signs taken, procedure explained and consent signed. Date of Exam: 08/11/2019 Liver Stiffness: (LSM, kPa) median: ??3.5 IQR (interquartile range): ?? 0.5 IQR/Median% (ideally < 30%): ??14 CAP (controlled attenuation parameter): ??400 Technical Difficulty: None Ordering Provider: Tiffanie Mcpherson HEM MARKER Phone Fax Fibroscan interpretation: I have personally reviewed the Fibroscan report and associated tracings. The calculated Liver Stiffness Measurement (LSM, kPa) indicates that: The probability of advanced liver fibrosis is: low. The loss of ultrasound signal, (controlled attenuation parameter, CAP [dB/m]), indicates that the probability of hepatic steatosis is: high. Travon Merchant MD The following criteria are used to indicate the probability of advanced (stage 3-4) fibrosis: < 7.0 kPa: low 7.0-8.9 kPa: low to moderate 9.0-14.9 kPa: moderate 15-20 kPa: high > 20 kPa: very high Liver stiffness > 20 kPa is also associated with a high probability of complications of portal hypertension including varices and ascites. Liver stiffness > 50 kPa is associated with a high risk of variceal bleeding. These interpretations are based on the following published data: Fina PJ, Jeri M, Arabella M, et al. Accuracy of FibroScan controlled attenuation parameter and liver stiffness measurement in assessing steatosis and fibrosis in patients with nonalcoholic fatty liver disease. Gastroenterology 2019;156:7136-0050. Renuka MS, Desire R, Van Yoan ML, et al. Vibration-controlled transient elastography to assess fibrosis and steatosis in patients with nonalcoholic fatty liver disease. Clin Gastroenterol Hepatol 2019;17:156-163. Note: 1. Fibroscan cannot reliably identify earlier stages of fibrosis (ie distinguish F0 from F1 and F2) and thus a histologic stage cannot be predicted from the Fibroscan reading. 2. Assessing the likelihood of advanced fibrosis in patients with indeterminate liver stiffness measurement (LSM) by Fibroscan (e.g., 8-15 kPa) can be improved by also calculating the FIB4 score (Patel et al. Hepatology Communications 2019;3:5072-7885) or NAFLD Fibrosis score (Moura et al. Clinical Gastroenterology and Hepatology 2019;17:5054-8449. from routine clinical data. 3. Liver stiffness can be increased by factors other than fibrosis including passive congestion, infiltrative processes, active alcoholism, biliary obstruction and marked inflammation. The interpretation of the Fibroscan result provided above may not have taken such clinical factors into account. Disease etiology also influences Fibroscan cutoff values for fibrosis stages and the following cutoffs have been proposed (Alessia et al, Clin Gastro Hepatol 2015; 13:27-36): Cutoffs for Stage 3 and Stage 4 fibrosis respectively: Hepatitis B: >9 and >11.7 kPa Hepatitis C: >9.5 and >12.5 kPa HCV-HIV: >11 and >14 kPa Cholestatic liver diseases: >10 and >17.9 kPa NAFLD/CHAPPELL: >10 and >14 kPa CAP estimates of steatosis: normal <200 dB/m mild 200 to 250 dB/m moderate 250-290 dB/m substantial > 290 dB/m (Note that Fibroscan is not a quantitative measure of liver fat.) These criteria are estimates and may change as additional supporting data becomes available. [email or web address] Tiffanie Mcpherson ADVERTISING SALES AGENT-FEEDER/FOLDER PROCEDURE/MINOR SURGICAL ORDERABLES * SIX MINUTE WALK (08/11/2019 2:27 PM BUSINESS ADMINISTRATION PROGRAM CHAIR) Impressions Apolinar Ramos MD - 08/11/2019 2:27 PM BUSINESS ADMINISTRATION PROGRAM CHAIR [facility] DEPARTMENT OF PULMONARY, CRITICAL CARE, AND SLEEP MEDICINE SIX MINUTE WALK TEST Marcello Mansfield Mindy 08/11/2019 Interpretation: The patient walked for 6 minutes on room air and covered total distance of 422 meters. On the Bruno scale at baseline, reported dyspnea was 0 and fatigue was 2. ??At the end of the study, the Bruno reported dyspnea was 0 and fatigue was 2. ??There were no additional symptoms reported and oxygen saturation remained above 97% throughout the test. IMPRESSION: 1. Total 6 minute walk distance is 422 meters, which is above the lower limit of normal of 382 meters for this patient. 2. There is no previous study available for comparison Moon Nance MD Pulmonary / Critical Care Fellow Division of Pulmonary, Critical Care, & Sleep Medicine [facility] Beeper #:[phone] I have personally reviewed the pulmonary function test data and made adjustment to the interpretation where necessary. Apolinar Ramos MD 08/12/2019 Narrative Apolinar Ramos MD - 08/11/2019 2:27 PM BUSINESS ADMINISTRATION PROGRAM CHAIR Moon Nance MD ? 08/11/2019 ??4:38 PM Procedure Note Moon Nance MD - 08/11/2019 2:27 PM CST Images from the original note were not included. Tiffanie Mcpherson ADVERTISING SALES AGENT-FEEDER/FOLDER RESPIRATORY [facility] ORDERABLES * COMPLETE PFT (08/11/2019 2:22 PM BUSINESS ADMINISTRATION PROGRAM CHAIR) Impressions Apolinar Ramos MD - 08/11/2019 2:22 PM BUSINESS ADMINISTRATION PROGRAM CHAIR [facility] DEPARTMENT OF PULMONARY, CRITICAL CARE, AND SLEEP MEDICINE PULMONARY FUNCTION TEST Please see technologist's comments mentioned in the report. INTERPRETATION: SPIROMETRY: ?FVC: decreased ?FEV1: decreased ?FEV1/FVC ratio is decreased. BRONCHODILATOR RESPONSE: There is a positive response to bronchodilators FLOW-VOLUME LOOPS: Scooping of the expiratory limbs LUNG VOLUMES: Lung volumes by body plethysmography show mild hyperinflation based on TLC(120-135% pred) ??and severe air-trapping based on RV(>150% pred). DLCO: Unadjusted for Hb and COHb is normal DLCO: Corrected for Hb and COHb is: not able to perform AIRWAY RESISTANCE: The airway resistance is increased and the specific conductance is decreased ARTERIAL BLOOD GAS ANALYSIS: not performed IMPRESSION: 1. ??Mild Obstructive Ventilatory Limitation 2. ??Mild hyperinflation and severe air trapping. 3. ??There is a positive bronchodilator response 4. ??There is no previous study available for comparison Moon Nance MD Pulmonary & Critical Care Fellow Division of Pulmonary, Critical Care and Sleep Medicine [facility] Pager: [phone] I have personally reviewed the pulmonary function test data and made adjustment to the interpretation where necessary. Apolinar Ramos MD 08/12/2019 Narrative Apolinar Ramos MD - 08/11/2019 2:22 PM BUSINESS ADMINISTRATION PROGRAM CHAIR Moon Nance MD ? 08/11/2019 ??4:38 PM Procedure Note Moon Nance MD - 08/11/2019 2:22 PM CST Images from the original note were not included. Tiffanie Mcpherson APRN-FEEDER/FOLDER RESPIRATORY [facility] ORDERABLES * ECHO COMPLETE (08/11/2019 11:03 AM BUSINESS ADMINISTRATION PROGRAM CHAIR) Anatomical Region Laterality Modality Echo 08/11/2019 10:2 8 AM BUSINESS ADMINISTRATION PROGRAM CHAIR Narrative Procedure Note Olivia Payna MD - 08/11/2019 Tiffanie Mcpherson APRN-FEEDER/FOLDER ECHOCARDIOGRAPH Y RADIANT * PET CT WHOLE BODY (08/11/2019 10:29 AM BUSINESS ADMINISTRATION PROGRAM CHAIR) Anatomical Region Laterality Modality Positron Emissio n Tomography (PET) 08/11/2019 10:2 9 AM BUSINESS ADMINISTRATION PROGRAM CHAIR Impressions 08/12/2019 4:41 PM BUSINESS ADMINISTRATION PROGRAM CHAIR IMPRESSION: 1. No evidence of recurrent or residual disease (Deauville 1). This report was approved ??by Tacos Rainey M.D. ?? on 08/11/2019 11:15 AM . I, Dr. ANURADHA RHODES M.D. have personally reviewed and interpreted this examination/study. This report was electronically signed by ANURADHA RHODES M.D. ??on 08/12/2019 4:41 PM . Narrative 08/12/2019 4:41 PM BUSINESS ADMINISTRATION PROGRAM CHAIR PROCEDURE: PET/CT Study REFERRING PHYSICIAN: TIFFANIE MCPHERSON HISTORY: Diffuse large B-cell lymphoma status post therapy with relapse. Prehematopoietic stem cell transplant. Evaluate for subsequent treatment strategy. TECHNIQUE: 10.57 mCi of F-18 FDG by IV in the right antecubital fossa. PET/CT image acquisition from the top of the head to the feet after approximately 60 minutes post-injection with the CT being low-dose, non-contrast. No separate report for the CT was generated since it was of non-diagnostic quality. Blood glucose level at the time of injection was 105 mg/dL. Patient's height is 173, cm, weight 280 pounds. FINDINGS: Comparison is made to a PET/CT performed at [facility] on March 15, 2019. For reference, SUV max of the mediastinum is 3.5. SUV max of the liver is 3.9. Head and neck: No abnormal FDG uptake is seen in the brain. There are no significantly FDG avid or enlarged cervical lymph nodes. Chest: No abnormal FDG uptake is seen within the lungs. The lungs are free of focal consolidations. No suspicious pulmonary nodules are visible. There is no pleural effusion or pneumothorax. There is no supraclavicular, axillary, mediastinal or hilar lymphadenopathy. Left axillary lymph nodes have resolved. The heart size is normal. There is no pericardial effusion. A right internal jugular approach Port-A-Cath terminates in the superior vena cava. There is mild diffuse uptake throughout the esophagus which may relate to esophagitis. Abdomen and pelvis: The liver is normal. The gallbladder is normal without evidence of gallstones. No intrahepatic or extrahepatic biliary ductal dilatation is seen. The spleen has decreased in size with normalization of its FDG uptake now measuring 16 cm in craniocaudal dimension, previously 22 cm. The pancreas is normal. The adrenal glands are normal. The kidneys appear normal without evidence of hydronephrosis or hydroureter. The small and large bowel are normal in caliber without obstruction. There is colonic diverticulosis without evidence of acute diverticulitis. No free intraperitoneal air or free fluid is identified. A few mildly enlarged retroperitoneal lymph nodes have resolved. Musculoskeletal: No suspicious lytic or blastic lesions are identified. No abnormal FDG uptake is seen within the osseous structures. A plate and screws are seen in the anterior right tibia. Generative changes are seen in the spine. Procedure Note Anuradha Rhodes MD - 08/12/2019 PROCEDURE: PET/CT Study REFERRING PHYSICIAN: TIFFANIE MCPHERSON HISTORY: Diffuse large B-cell lymphoma status post therapy with relapse. Prehematopoietic stem cell transplant. Evaluate for subsequent treatment strategy. TECHNIQUE: 10.57 mCi of F-18 FDG by IV in the right antecubital fossa. PET/CT image acquisition from the top of the head to the feet after approximately 60 minutes post-injection with the CT being low-dose, non-contrast. No separate report for the CT was generated since it wasof non-diagnostic quality. Blood glucose level at the time of injection was 105 mg/dL. Patient's height is 173, cm, weight 280 pounds. FINDINGS: Comparison is made to a PET/CT performed at [facility] on March 15, 2019. For reference, SUV max of the mediastinum is 3.5. SUV max of the liveris 3.9. Head and neck: No abnormal FDG uptake is seen in the brain. There are no significantly FDG avid or enlarged cervical lymph nodes. Chest: No abnormal FDG uptake is seen within the lungs. The lungs are free of focal consolidations. No suspicious pulmonary nodules are visible. There is no pleural effusion or pneumothorax. There is no supraclavicular, axillary, mediastinal or hilar lymphadenopathy. Left axillary lymph nodes have resolved. The heart size is normal. There is no pericardial effusion. A right internal jugular approach Port-A-Cath terminates in the superior vena cava. There is mild diffuse uptake throughout the esophagus which may relateto esophagitis. Abdomen and pelvis: The liver is normal. The gallbladder is normal without evidence of gallstones. No intrahepatic or extrahepatic biliary ductal dilatation is seen. The spleen has decreased in size with normalization of its FDG uptake now measuring 16 cm in craniocaudal dimension, previously 22 cm. The pancreas is normal. The adrenal glands are normal. The kidneysappear normal without evidence of hydronephrosis or hydroureter. The small and large bowel are normal in caliber without obstruction.There is colonic diverticulosis without evidence of acute diverticulitis. No free intraperitoneal air or free fluid is identified. A few mildly enlarged retroperitoneal lymph nodes have resolved. Musculoskeletal: No suspicious lytic or blastic lesions are identified. No abnormal FDG uptake is seen within the osseous structures. A plate and screws areseen in the anterior right tibia. Generative changes are seen in the spine. IMPRESSION: 1. No evidence of recurrent or residual disease (Deauville 1). This report was approved by Tacos Rainey M.D. on 08/11/2019 11:[address] ANURADHA Harris M.D. have personally reviewed and interpreted this examination/study. This report was electronically signed by ANURADHA RHODES M.D. on 08/12/2019 4:41 PM . Tiffanie Mcpherson ADVERTISING SALES AGENT-FEEDER/FOLDER NM ORDERABLES * GLUCOSE SCREEN - POCT (IP) [facility] (08/11/2019 8:44 AM BUSINESS ADMINISTRATION PROGRAM CHAIR) Glucose WB/POC 105 70 - 115 mg/dL [facility] POCT TESTING Blood BLOOD SPECIMEN / Unknown 08/11/2019 8:44 AM BUSINESS ADMINISTRATION PROGRAM CHAIR Tiffanie Mcpherson ADVERTISING SALES AGENT-FEEDER/FOLDER LAB - POINT OF CARE ORDERABLES [facility] POCT TESTING [address] [phone] * CT ABDOMEN PELVIS WO CONTRAST (07/26/2019 1:29 PM BUSINESS ADMINISTRATION PROGRAM CHAIR) Anatomical Region Laterality Modality Abdomen, Pelvis Computed Tomogra phy 07/26/2019 1:55 PM BUSINESS ADMINISTRATION PROGRAM CHAIR Impressions 07/30/2019 11:04 AM BUSINESS ADMINISTRATION PROGRAM CHAIR IMPRESSION: 1. The spleen is enlarged, measuring 15.8 cm craniocaudally, decreased from 06/09/2019. 2. No acute process identified in the abdomen or pelvis. No abdominal or pelvic lymphadenopathy. Dictated by Mary Ellen Ty MD (regional vice president life sales). I, Dr. CAMERON PECK M.D. have personally reviewed and interpreted this examination/study. This report was electronically signed by CAMERON PECK M.D. ??on 07/30/2019 11:04 AM . Narrative 07/30/2019 11:04 AM BUSINESS ADMINISTRATION PROGRAM CHAIR EXAMINATION: Computed tomography (CT) of the abdomen and pelvis without contrast HISTORY: C83.30: Diffuse large B-cell lymphoma, unspecified body region TECHNIQUE: CT of the abdomen and pelvis was performed without contrast according to standard protocol. COMPARISON: CT Abdomen Pelvis with Contrast on 06/09/2019 FINDINGS: The visible lung bases are clear. The heart size is normal without pericardial effusion. The liver is normal. The gallbladder is normal without evidence of wall thickening, pericholecystic fluid, or gallstones. The intrahepatic and extrahepatic bile ducts are nondilated. The spleen is enlarged, measuring 15.8 cm craniocaudally. This appears decreased from the CT of 06/09/2019, at which time it measured 17.9 cm. The pancreas and adrenal glands are normal. There is a 2 mm renal calculus in the lower pole of the left kidney, also seen on the prior exam. The distal esophagus and stomach appear normal. There is colonic diverticulosis without evidence of diverticulitis. Otherwise the small bowel and large bowel are normal in caliber without evidence of wall thickening or obstruction. The appendix appears normal without appendicolith or surrounding inflammatory changes. No free air or free fluid is identified within the abdomen. There is no abdominal lymphadenopathy. The aorta is mildly atherosclerotic but normal in caliber. The urinary bladder is distended with fluid and appears normal. The prostate is present. No free fluid is seen within the pelvis. There is no pelvic lymphadenopathy. Bone windows demonstrate no suspicious lytic or blastic lesions. Multilevel degenerative changes are noted in the spine, most severe at L5-S1 with grade 1 anterolisthesis at this level. Procedure Note Cameron Peck MD - 07/30/2019 EXAMINATION: Computed tomography (CT) of the abdomen and pelvis without contrast HISTORY: C83.30: Diffuse large B-cell lymphoma, unspecified body region TECHNIQUE: CT of the abdomen and pelvis was performed without contrast according to standard protocol. COMPARISON: CT Abdomen Pelvis with Contrast on 06/09/2019 FINDINGS: The visible lung bases are clear. The heart size is normal without pericardial effusion. The liver is normal. The gallbladder is normal without evidence of wall thickening, pericholecystic fluid, or gallstones. The intrahepatic and extrahepatic bile ducts are nondilated. The spleen is enlarged,measuring 15.8 cm craniocaudally. This appears decreased from the CT of 06/09/2019, at which time it measured 17.9 cm. The pancreas and adrenal glands are normal. There is a 2 mm renal calculus in the lower pole of the left kidney, also seen on the prior exam. The distal esophagus and stomach appear normal. There is colonic diverticulosis without evidence of diverticulitis. Otherwise the small bowel and large bowel are normal in caliber without evidence of wall thickening or obstruction. The appendix appears normal without appendicolith or surrounding inflammatory changes. No free air or free fluid is identified within the abdomen. There is no abdominal lymphadenopathy. The aorta is mildly atherosclerotic but normal in caliber. The urinary bladder is distended with fluid and appears normal. The prostate is present. No free fluid is seen within the pelvis. There isno pelvic lymphadenopathy. Bone windows demonstrate no suspicious lytic or blastic lesions. Multilevel degenerative changes are noted in the spine, most severe at L5-S1 with grade 1 anterolisthesis at this level. IMPRESSION: 1. The spleen is enlarged, measuring 15.8 cm craniocaudally, decreased from 06/09/2019. 2. No acute process identified in the abdomen or pelvis. No abdominal or pelvic lymphadenopathy. Dictated by Mary Ellen Ty MD (regional vice president life sales). I, Dr. CAMERON PECK M.D. have personally reviewed and interpreted this examination/study. This report was electronically signed by CAMERON PECK M.D. on 07/30/2019 11:04 AM . Tiffanie Mcpherson ADVERTISING SALES AGENT-FEEDER/FOLDER CT ORDERABLES * (ABNORMAL) DRUG SCREEN TOX URINE PANEL (07/26/2019 12:47 PM [facility]) Only the most recent of2 resultswithin the time period is included. Amphetamines Screen Urine Negative Negative : < 1000 ng/mL 07/26/2019 2:34 PM [facility] Barbiturates Screen Urine Negative Negative : < 200 ng/mL 07/26/2019 2:34 PM [facility] Benzodiazepine Screen Urine Negative Negative : < 200 ng/mL 07/26/2019 2:34 PM [facility] Opiates Urine Positive(A) Negative : < 300 ng/mL 07/26/2019 2:34 PM [facility] Comment: Positive urine opiate screening results should be confirmed by another generally accepted non-immunological method such as gas chromatography or mass spectrometry. ? Cocaine Metabolites Urine Negative Negative : < 300 ng/mL 07/26/2019 2:34 PM [facility] Phencyclidine Screen Urine Negative Negative : < 25 ng/ml 07/26/2019 2:34 PM [facility] Cannabinoids Screen Urine Positive(A) Negative : <50 ng/mL 07/26/2019 2:34 PM [facility] Comment: Positive urine cannabinoids (THC) screening results should be confirmed by another generally accepted non-immunological method such as gas chromatography or mass spectrometry. ? Methadone Screen Urine Negative Negative : < 300 ng/mL 07/26/2019 2:34 PM BUSINESS ADMINISTRATION PROGRAM CHAIR [facility] Fentanyl Screen Urine Negative Negative : <1.0 ng/mL 07/26/2019 2:34 PM [facility] Urine URINE / Unknown Collection / Unknown 07/26/2019 12:47 PM BUSINESS ADMINISTRATION PROGRAM CHAIR 07/26/2019 2:23 PM BUSINESS ADMINISTRATION PROGRAM CHAIR Narrative [facility] - 07/26/2019 2:34 PM BUSINESS ADMINISTRATION PROGRAM CHAIR The Urine Toxicology Screening Panel does not screen for Propoxyphene, Meprobamate, Carisoprodol, Trazodone, olss-lxf-buqoozz medications and/or volatiles (Acetone, Isopropanol, Methanol or Ethylene Glycol). Ethanol, Salicylate, Acetaminophen, Tricyclic Antidepressants and several therapeutic drugs may be individually assayed in serum or plasma specimen. Toxicology testing by the [facility] is an aid to medical diagnosis and treatment of patients. No documented chain of custody was maintained. Results are intended to be used for clinical purposes only. ? Tiffanie Mcpherson ADVERTISING SALES AGENT-FEEDER/FOLDER LAB - URINE LINDA MIRIAN ORDERABLES [facility] [address] [place] [address], [facility] [phone] * NE LIVER ELASTOGRAPHY (06/11/2019 4:49 PM BUSINESS ADMINISTRATION PROGRAM CHAIR) Narrative Travon Merchant MD - 06/11/2019 4:49 PM BUSINESS ADMINISTRATION PROGRAM CHAIR Travon Merchant MD ? 06/11/2019 ??4:49 PM Diagnosis: Splenomegaly RN verified patient has no implanted devices and NPO for prior 3 hours. Vital signs taken, procedure explained and consent signed. Date of Exam: 06/09/2019 Liver Stiffness: (E, kPa) median: ??3.7 IQR (interquartile range): ?? 0.4 IQR/Median% (ideally < 30%): ??11 CAP (controlled attenuation parameter): ??400 Technical Difficulty: None Ordering Provider: Tiffanie Mcpherson HEM MARKER Phone Fax Fibroscan interpretation: I have personally reviewed the Fibroscan report and associated tracings. The calculated liver stiffness (E, kPa) indicates that: The probability of advanced liver fibrosis is: low. The loss of ultrasound signal, (controlled attenuation parameter, CAP [dB/m]), indicates that the probability of hepatic steatosis is: high. Travon Merchant MD The following criteria are used to indicate the probability of advanced (stage 3-4) fibrosis: < 7.0 kPa: low 7.0-8.9 kPa: low to moderate 9.0-14.9 kPa: moderate 15-20 kPa: high > 20 kPa: very high Liver stiffness > 20 kPa is also associated with a high probability of complications of portal hypertension including varices and ascites. Liver stiffness > 50 kPa is associated with a high risk of variceal bleeding. Note: Liver stiffness is increased by factors other than fibrosis including passive congestion, infiltrative processes, active alcoholism, biliary obstruction and marked inflammation. The interpretation of the Fibroscan result provided above may not have taken such factors into account. Disease etiology also influences Fibroscan cutoff values for fibrosis stages and the following cutoffs have been proposed (Alessia et al, Clin Gastro Hepatol 2015; 13:27-36): Cutoffs for Stage 3 and Stage 4 fibrosis respectively: Hepatitis B: >9 and >11.7 kPa Hepatitis C: >9.5 and >12.5 kPa HCV-HIV: >11 and >14 kPa Cholestatic liver diseases: >10 and >17.9 kPa NAFLD/CHAPPELL: >10 and >14 kPa CAP estimates of steatosis: normal <200 dB/m maybe present 200 to 250 dB/m moderate 250-300 dB/m substantial > 300 dB/m (Note that Fibroscan is not a quantitative measure of liver fat and the risk of NAFLD progression is unrelated to the degree of steatosis.) These criteria are estimates and may change as additional supporting data becomes available. [email or web address] Tiffanie Mcpherson ADVERTISING SALES AGENT-FEEDER/FOLDER PROCEDURE/MINOR SURGICAL ORDERABLES * CT ABDOMEN PELVIS W CONTRAST (06/09/2019 3:37 PM BUSINESS ADMINISTRATION PROGRAM CHAIR) Anatomical Region Laterality Modality Abdomen, Pelvis Computed Tomogra phy 06/09/2019 3:59 PM BUSINESS ADMINISTRATION PROGRAM CHAIR Impressions 06/10/2019 5:08 PM BUSINESS ADMINISTRATION PROGRAM CHAIR IMPRESSION: 1. The spleen is enlarged, measuring 17.9 cm craniocaudally. This is decreased from 03/02/2019. 2. No acute process identified in the abdomen or pelvis. Dictated by Love Rowland MD (regional vice president life sales). I, Dr. NARGIS ESPINO M.D. have personally reviewed and interpreted this examination/study. This report was electronically signed by NARGIS ESPINO M.D. ??on 06/10/2019 5:08 PM . Narrative 06/10/2019 5:08 PM BUSINESS ADMINISTRATION PROGRAM CHAIR EXAMINATION: Computed tomography (CT) of the abdomen and pelvis with contrast HISTORY: Evaluate for spleen size after chemotherapy TECHNIQUE: CT of the abdomen and pelvis was performed following the uneventful administration of 100 mL of Isovue-370 intravenous contrast according to standard protocol. COMPARISON: Head CT from 03/15/2019 FINDINGS: The visible lung bases are clear. The heart size is normal without pericardial effusion. The liver enhances homogenously. The gallbladder is normal without evidence of wall thickening, pericholecystic fluid, or gallstones. The intrahepatic and extrahepatic bile ducts are nondilated. The spleen enhances homogenously without focal lesion, and is enlarged, measuring 17.9 cm craniocaudally. This appears decreased from the CT of 03/02/2019. The pancreas and adrenal glands are normal. The kidneys enhance symmetrically. There is no evidence of renal calculus or hydronephrosis. The distal esophagus and stomach appear normal. There is mild colonic diverticulosis without evidence of diverticulitis. Otherwise the small bowel and large bowel are normal in caliber without evidence of wall thickening or obstruction. The appendix appears normal without appendicolith or surrounding inflammatory changes. No free air or free fluid is identified within the abdomen. There is no abdominal lymphadenopathy. The aorta is mildly atherosclerotic but normal in caliber. The urinary bladder is distended with fluid and appears normal. The prostate is present. No free fluid is seen within the pelvis. There is no pelvic lymphadenopathy. Bone windows demonstrate no suspicious lytic or blastic lesions. The visible osseous structures are intact. Multilevel degenerative changes are noted in the spine, most severe at L5-S1 with grade 1 anterolisthesis at this level. Procedure Note Ana Laura Espino MD - 06/10/2019 EXAMINATION: Computed tomography (CT) of the abdomen and pelvis with contrast HISTORY: Evaluate for spleen size after chemotherapy TECHNIQUE: CT of the abdomen and pelvis was performed following the uneventful administration of 100 mL of Isovue-370 intravenous contrast according to standard protocol. COMPARISON: Head CT from 03/15/2019 FINDINGS: The visible lung bases are clear. The heart size is normal without pericardial effusion. The liver enhances homogenously. The gallbladder is normal without evidence of wall thickening, pericholecystic fluid, or gallstones. The intrahepatic and extrahepatic bile ducts are nondilated. The spleen enhances homogenously without focal lesion, and is enlarged, measuring 17.9 cm craniocaudally. This appears decreased from the CT of 03/02/2019. The pancreas and adrenal glands are normal. The kidneys enhance symmetrically. There is no evidence of renal calculus or hydronephrosis. The distal esophagus and stomach appear normal. There is mild colonic diverticulosis without evidence of diverticulitis. Otherwise the small bowel and large bowel are normal in caliber without evidence of wall thickening or obstruction. The appendix appears normal without appendicolith or surrounding inflammatory changes. No free air or free fluid is identified within the abdomen. There is no abdominal lymphadenopathy. The aorta is mildly atherosclerotic but normal in caliber. The urinary bladder is distended with fluid and appears normal. The prostate is present. No free fluid is seen within the pelvis. There isno pelvic lymphadenopathy. Bone windows demonstrate no suspicious lytic or blastic lesions. The visible osseous structures are intact. Multilevel degenerative changesare noted in the spine, most severe at L5-S1 with grade 1 anterolisthesis at this level. IMPRESSION: 1. The spleen is enlarged, measuring 17.9 cm craniocaudally. This is decreased from 03/02/2019. 2. No acute process identified in the abdomen or pelvis. Dictated by Love Rowland MD (regional vice president life sales). I, Dr. NARGIS ESPINO M.D. have personally reviewed and interpretedthis examination/study. This report was electronically signed by NARGIS ESPINO M.D. on 06/10/2019 5:08 PM . Tiffanie Mcpherson ADVERTISING SALES AGENT-FEEDER/FOLDER CT ORDERABLES * HIV-1 HIV-2 ANTIGEN/ANTIBODY (03/22/2019 3:00 PM CDT) HIV Antigen/Antibod y 1 & 2 Non-reacti ve Non-react robyn 03/22/2019 3:59 PM CDT [facility] Comment: Neither HIV-1 p24 Antigen nor HIV-1/HIV-2 Antibodies are detected. ? Blood BLOOD SPECIMEN / Unknown Venipuncture / Unknown 03/22/2019 3:00 PM CDT 03/22/2019 3:11 PM CDT Tiffanie Mcpherson ADVERTISING SALES AGENT-FEEDER/FOLDER LAB - HEMATOLOG Y ORDERABLES [facility] [address] [phone] Care Teams Marketing Communications Assistant Relationship Specialty Start Date End Date Ran Nuñez MD [address] [place] [id number] PCP - General Family Medicine 08/30/21 Hillary Apple MD [address] [place] [address] Hematology and Oncology 03/17/19 Tony Dumont MD [address] [place] [address] Hematology and Oncology 03/17/19 Maryjo Reinoso LCSW Hand Spring Repairer Helper 03/17/19 Madyson Clay, PharmD 03/17/19 Dana Lala, ADVERTISING SALES AGENT-THEATRICAL SCENIC DESIGNER [address] [place] [address] Oncology 03/17/19 Tiffanie Mcpherson, ADVERTISING SALES AGENT-FEEDER/FOLDER [address] [facility] [address] [place] [address] Family Medicine 03/17/19 Cesar Tavares MD [address] [facility] [facility] [address]nd [place] [address] Referring Physician Medical Oncology 03/23/19 Joy Bob 09/22/19 Tony Dumont MD [address] [place] [address] Hematology and Oncology 10/30/21 Shalini Segal MD [address] [facility] [place] OF HEMATOLOGY & [place] [address] Leather Goods Ii Assembler/Oncologist Hematology and Oncology 10/30/21 Stefanie Burns, ROSEMARY Registered Nurse 10/30/21 Fatemeh Bolaños, RN Registered Nurse 10/30/21 Chandana Lu MD [address] [place] [address] Orthopedic Surgery 03/30/24
--- OUTSIDE RECORDS SUMMARY | 2024-08-18 00:20 | XMS_ITS | Encounter Summary ---
Author Organization [facility] Address [address] [facility] [place] [address] Care Team Providers Care Accounting Administrative Assistant Name Role Phone Hillary Apple MD Unavailable [phone] Tony Dumont MD Unavailable [phone] Maryjo ReinosoW Unavailable Unavailable Madyson Clay PharmD Unavailable Unavaila Dana Galicia BROKERAGE BRANCH MANAGER-WING COMMANDER Unavailable + [phone] Tiffanie Nguyen BROKERAGE BRANCH MANAGER-AUTO CLOCKS REPAIRER Unavailable [phone] Cesar Tavares MD Unavailable [phone] Joy Bob Unavailable Fanta Ran Augustine MD Primary Care Provider Tony Dumont MD Unavailable [phone] Shalini Segal MD Unavailable Stefanie Burns RN Unavailable Unavaila Fatemeh Kelly RN Unavailable Unavailable Glenn Hernandez MD Unavailable [phone] Chandana Lu MD Unavailable [phone] Reason for Visit * Reason Onset Date Comments MEDICATION REFILL 08/13/2023 Encounter Details Date Type Department Care Team (Late st Contact Info) Description 08/13/2023 Refill [facility] [address] [place] [address] Tiffanie Nguyen APRN-AUTO CLOCKS REPAIRER [address] [place] [address] MEDICATION REFILL Social History Tobacco Use Types [...] st Contact Info) Description 08/26/2024 11:00 AM CAR WHACKER Office Visit [facility] - Pulmonology [address] [place] [address], [place] [address] Andrew Francis MD [address] [place] [address] 2[address] DIV OF PULMONARY/[place] [address] documented as of this encounter Visit Diagnoses Diagnosis Restless legs syndrome (RLS) 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 documented in this encounter Care Teams Accounting Administrative Assistant Relationship Specialty Start Date End Date Ran Nuñez MD [address] [place] [address] PCP - General Family Medicine 08/30/21 [place] [address] [place] [id number] PCP - [facility] 03/04/23 08/21/23 Hillary Apple MD [facility] [place] [address] Hematology and Oncology 03/17/19 Tony Dumont MD [address] [place] [address] Hematology and Oncology 03/17/19 Maryjo Reinoso, [facility] Gravel Truck Driver 03/17/19 Madyson Clay, PharmD 03/17/19 Dana Lala APRN-WING COMMANDER [facility] [address] [address] Oncology 03/17/19 Tiffanie Nguyen, BROKERAGE BRANCH MANAGER-AUTO CLOCKS REPAIRER [address] [facility] [address] [address] Family Medicine 03/17/19 Cesar Tavares MD [address] [place] [address] [address] [place] [address] Referring Physician Medical Oncology 03/23/19 Joy Bob 09/22/19 Tony Dumont MD [address] [place] [id number] Hematology and Oncology 10/30/21 Shalini Segal MD [address] [place] [address] OF HEMATOLOGY & MEDICAL [place] [address] Accounts Receivable Executive/Oncologist Hematology and Oncology 10/30/21 Stefanie Burns, RN Registered Nurse 10/30/21 Fatemeh Bolaños RN Registered Nurse 10/30/21 Chandana Lu MD [address] [facility] [address] [place], [place] [id number] Orthopedic Surgery 03/30/24 documented as of this encounter
--- OUTSIDE RECORDS SUMMARY | 2024-08-18 00:20 | XMS_ITS | Encounter Summary ---
Author Organization [facility] Address [address] [facility] [place] [address] Care Team Providers Care Wildlife Biologist Name Role Phone Hillary Apple MD Unavailable [phone] Tony Dumont MD Unavailable [phone] Maryjo ReinosoW Unavailable Unavailable Madyson Clay PharmD Unavailable Unavaila Dana Galicia CHIEF ORTHOPTIST-WORSTED WINDER Unavailable [phone] Tiffanie Nguyen CHIEF ORTHOPTIST-PURCHASE REQUEST EDITOR Unavailable [phone] Cesar Tavares MD Unavailable [phone] Joy Bob Unavailable Fanta Ran Augustine MD Primary Care Provider Tony Dumont MD Unavailable [phone] Shalini Segal MD Unavailable [phone] Steafnie Burns RN Unavailable Unavaila Fatemeh Kelly RN Unavailable Unavailable Chandana Lu MD Unavailable [phone] Reason for Visit * Reason Onset Date Comments Reschedule Appointment 07/12/2024 Encounter Details Date Type Department Care Team (Late st Contact Info) Description 07/12/2024 Telephone [facility] - Centralized Scheduling [address] [place] [phone] Andrew Francis MD [address] DIV OF PULMONARY/[place] [address] Reschedule Appointment Social History Tobacco Use Types Packs/Day Years [...] encounter Miscellaneous Notes * Telephone Encounter - Maryjo Sanders - 07/12/2024 9:24 AM CST Please reschedule to the next available. 07/12 left msg to + sent msg to [facility] ms TIAN BLIND TAPE CUTTER documented in this encounter Plan of Treatment Upcoming Encounters Date Type Department Care Team (Late st Contact Info) Description 08/26/2024 11:00 AM VENETIAN BLIND TAPE CUTTER Office Visit [facility] - Pulmonology [address] [place] [address], [place] [address] Andrew Francis MD [address] [place] [address] 2L DIV OF PULMONARY/[place] [address] documented as of this encounter Visit Diagnoses Not on filedocumented in this encounter Care Teams Wildlife Biologist Relationship Specialty Start Date End Date Ran Nuñez MD [address] [place] [address] PCP - General Family Medicine 08/30/21 Hillary Apple MD [address] [place] [address] Hematology and Oncology 03/17/19 Tony Dumont MD [address] [place] [address] Hematology and Oncology 03/17/19 Maryjo Reinoso, BIOLOGY FACULTY MEMBER Knitting Demonstrator 03/17/19 Madyson Clay, PharmD 03/17/19 Dana Lala APRN-WORSTED WINDER [address] [place], [place] [address]TA [facility] [address] [address] Oncology 03/17/19 Tiffanie Nguyen, CHIEF ORTHOPTIST-PURCHASE REQUEST EDITOR [address] [place], [place] [address]TA [facility] [address] [address] Family Medicine 03/17/19 Cesar Tavares MD [address] [place], [place] [address]TA [facility] 2[place] [address] Referring Physician Medical Oncology 03/23/19 Joy Bob 09/22/19 Tony Dumont MD [address] [place] [address] Hematology and Oncology 10/30/21 Shalini Segal MD [facility] & [place] [address] Physician Assistant Primary Care/Oncologist Hematology and Oncology 10/30/21 Stefanie Burns, RN Registered Nurse 10/30/21 Fatemeh Bolaños, RN Registered Nurse 10/30/21 Chandana Lu MD [address] [facility] [address] [place] [address] Orthopedic Surgery 03/30/24 documented as of this encounter
--- OUTSIDE RECORDS SUMMARY | 2024-08-18 00:20 | XMS_ITS | Encounter Summary ---
Author Organization [facility] Address [address] [facility] [place] [address] Care Team Providers Care Knobber Name Role Phone Hillary Apple MD Unavailable [phone] Tony Dumont MD Unavailable [phone] Maryjo Reinoso LCSW Unavailable Unavailable Madyson Clay PharmD Unavailable Unavaila Dana Galicia SEO PROFESSIONAL-WOOD AND WOOD PRODUCTS LABOURER Unavailable [phone] Tiffanie Nguyen SEO PROFESSIONAL-TESTING AND REGULATING TECHNICIAN Unavailable [phone] Cesar Tavares MD Unavailable [phone] Joy Bob Unavailable Fanta Ran Augustine MD Primary Care Provider Tony Dumont MD Unavailable [phone] Shalini Segal MD Unavailable Stefanie Burns RN Unavailable UnavailFatemeh Briones RN Unavailable Unavailable Reason for Referral * Procedure (Routine) - Pending Review Specialty Diagnoses / Procedures Referred By Contjohn t Referred To Contact Sleep Center Diagnoses Post-acute sequelae of COVID-19 (PASC) Procedures NOCTURNAL DESATURATION STUDY Andrew Francis MD [address] OF PULMONARY/[place] [address] [address] Referral ID Status Reason Start Date Expiration Date V isits Requested Visits Authorized [id number] Pending Review 02/26/2024 02/25/2025 1 1 Reason for Visit * Consult, Test & Treat (Routine) - Closed Specialty Diagnoses / Procedures Referred By Contac t Referred To Contact Pulmonary Disease Diagnoses Follow-up exam Ran Nuñez MD [address] [facility] [address] [address] Andrew Francis MD [address] [place] [address] [address] DIV OF PULMONARY/[place] [address] Referral ID Status Reason Start Date Expiration Date Visits Re quested Visits Authorized [id number] Closed 02/26/2024 02/25/2025 1 1 Encounter Details Date Type Department Care Team (Late st Contact Info) Description 02/26/2024 8:00 AM CDT Office Visit [facility] - Pulmonology [address] [place] [address], [place] [id number] Andrew Francis MD [address] [place] [address] 2[address] DIV OF PULMONARY/[place] [address] Post-acute sequelae of COVID-19 (PASC) (Primary Dx) Social History Tobacco Use Types Packs/Day Years Used Date Smoking Tobacco: Former Cigarettes 0.5 18 1 984 - 2002 Smokeless Tobacco: Former Chew Quit: 2017 Tobacco [...] AM CDT documented as of this encounter Last Filed Vital Signs Vital Sign Reading Time Taken Comments Blood Pressure 101/70 02/26/2024 8:05 AM CDT Pulse 69 02/26/2024 8:05 AM CDT Temperature - - Respiratory Rate 17 02/26/2024 8:05 AM CDT Oxygen Saturation 95% 02/26/2024 8:05 AM CDT Inhaled Oxygen Concentration - - Weight 114.4 kg (252 lb 3.2 oz) 02/26/2024 8:05 AM CDT Height 172.7 cm (5' 8 ) 02/26/2024 8:05 AM CDT Body Mass Index 38.35 02/26/2024 8:05 AM CDT documented in this encounter Functional Status Functional Status Response [...] No 02/25/2020 documented as of this encounter Patient Instructions * Patient Instructions* Andrew Francis MD - 02/26/2024 8:56 AM CDT Have Chest X-ray performed. Have Ambulatory oxygenation performed. Have overnight oximetry performed. Try Trelegy one inhalation daily. Let me know if this is better than Symbicort. Return to clinic in approximately 2 to 3 months. Call me after the above testing for results. -- Andrew Francis M.D. documented in this encounter Progress Notes * Luly Ch MD - 02/26/2024 8:00 AM CDT Images from the original note were not included. PULMONARY CLINIC NOTE HPI: The patient is a 53 year old male who is here for a follow up visit for further management of dyspnea on exertion. 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 He is using 2L of oxygen when walking around/exerting himself, he turns the oxygen off when he is sitting or resting. He can walk about 3 blocks with oxygen but is not able to walk 1 block without oxygen. He is taking his Symbicort twice daily and notices improvement with it, however he has had difficulties getting it from the pharmacy due to insurance. Additionally, he is using albuterol in the morning and night as well as as needed for dyspnea on exertion, about 5-6 times per day in total. He says his symptoms improve dramatically when he takes his albuterol. He has frequent cough with occasional sputum production. At night, he is prescribed CPAP with 5L O2. He is trying to get off of oxygen so he has weaned his nocturnal oxygen down to 2L with the CPAP machine. During his last visit, he was doing well on the symbicort and repeat PFTs were ordered, results below. Additionally, he is getting a left hip replacement at [facility] and requires approval from pulmonology before getting the surgery. He is also to get an eventual hernia repair. Current respiratory symptoms include the following: [x] Dyspnea [x] Wheezing [x] Cough [] Chest pain [x] Phlegm [] Heartburn [x] Nasal congestion [] Orthopnea [] Snoring/Apneas [] Paroxysmal Nocturnal Dyspnea Past Medical History: Diagnosis Date Acute respiratory failure with hypoxia (HCC) Asthma (HCC) 12/03/2017 B-cell lymphoma (HCC) 04/18/2017 Back pain 12/24/2021 COVID-19 with pulmonary comorbidity 12/20/2021 Diverticulosis DLBCL (diffuse large B cell lymphoma) (HCC) 05/24/2019 Fever 02/25/2020 GERD (gastroesophageal reflux disease) taking prevacid prn Ground glass opacity present on imaging of lung H/O echocardiogram 08/11/2019 History of marijuana use 06/28/2019 History of nephrolithiasis 12/24/2021 Hypersomnia due to medical condition 12/24/2021 Hypoxemia 02/19/2021 Lymphadenopathy 04/11/2017 Lymphoma of lymph nodes (HCC) Multiple body piercings facial LISSA (obstructive sleep apnea) 12/24/2021 Periodic limb movement disorder (PLMD) 12/24/2021 Pneumonia due to COVID-19 virus Port-A-Cath in place right subclavian Restless legs syndrome (RLS) 12/24/2021 S/P splenectomy 09/09/2019 Sleep apnea not using CPAP Status post autologous bone marrow transplant (HCC) 03/05/2020 Stem cells transplant status ([facility]) Transient alteration of awareness 2018 during knee arthroplasty(single incident) Past Surgical History: Procedure Laterality Date ACL RECONSTRUCTION BONE MARROW BIOPSY BRONCHIAL ALVEOLAR LAVAGE (BAL) N/A 03/06/2020 N/A; BRONCHOSCOPY BRONCHIAL LAVAGE COLONOSCOPY WITH POLYPECTOMY Knee Arthroscopy Right 2017 with hardware Splenectomy N/A 08/17/2019 N/A; LAPAROSCOPIC SPLENECTOMY POSS OPEN Tonsillectomy VENOUS ACCESS DEVICE (PORT OR CATHETER) Right 2018 subclavian Allergies Allergen Reactions Adhesive Sensitivity Urticaria and Other Electrodes -- welps where stickers are Also, use paper tape Family History Problem Relation Name Age of Onset Sudden Father Alcohol abuse Father Diabetes - Type 2 Neg Hx Social History Socioeconomic History Marital status: Tobacco Use Smoking status: Former Packs/day: .5 Types: Cigarettes Start date: 1983 Quit date: 2001 Years since quittin.5 Smokeless tobacco: Former Types: Chew Quit date: 2016 Vaping Use Vaping Use: Some days Start date: 08/04/2018 Last attempt to quit: 10/12/2018 Substance and Sexual Activity Alcohol use: Not Currently Drug use: Not Currently Frequency: 21.0 times per week Types: Marijuana Comment: none in past month Social History Narrative right handed 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 Current Outpatient Medications: acetaminophen (TYLENOL) 325 MG tablet, Take 1 tablet by mouth every 4 hours as needed Maximum allowable Acetaminophen amount = 4 Grams (4000 mg) / 24 hours., Disp: , Rfl: acyclovir (Zovirax) 400 MG tablet, Take 2 (two) tablets by mouth 2 times daily, Disp: 360 tablet, Rfl: 3 albuterol HFA (PROVENTIL;VENTOLIN;PROAIR) 108 (90 Base) MCG/ACT inhaler, Inhale 2 puffs by mouth every 4 hours, Disp: , Rfl: albuterol HFA (Ventolin HFA) 108 (90 Base) MCG/ACT inhaler, Inhale 2 (two) puffs by mouth every 4 hours as needed, Disp: 54 g, Rfl: 4 benzonatate (Tessalon) 200 MG capsule, Take 1 (one) capsule by mouth 3 times daily as needed for Cough, Disp: 30 capsule, Rfl: 0 clonazePAM (KLONOPIN) 1 MG tablet, Take 1 (one) tablet by mouth at bedtime, Disp: 30 tablet, Rfl: 0 cyanocobalamin 100 MCG tablet, Take 1 (one) tablet by mouth once daily, Disp: , Rfl: escitalopram (LEXAPRO) 20 MG tablet, TAKE 1 TABLET BY MOUTH EVERY DAY, Disp: 30 tablet, Rfl: 11 HYDROcodone-acetaminophen (NORCO) 5-325 MG tablet, Take 1 tablet by mouth every 6 hours as needed for Pain, Disp: , Rfl: multivitamin daily tablet, Take 1 tablet by mouth daily with food, Disp: , Rfl: ondansetron (Zofran) 8 MG tablet, , Disp: , Rfl: penicillin V potassium (VEETIDS) 250 MG tablet, Take 1 (one) tablet by mouth 2 times daily, Disp: 60 tablet, Rfl: 11 rOPINIRole (REQUIP) 0.25 MG tablet, Take 1 (one) tablet by mouth at bedtime Reasons: Restless Leg Syndrome, Disp: 90 tablet, Rfl: 3 Symbicort 160-4.5 MCG/ACT inhaler, Inhale 2 (two) puffs by mouth 2 times daily INHALE 2 PUFFS BY MOUTH TWICE DAILY, Disp: 10.2 g, Rfl: 0 Cannot display prior to admission medications because the patient has not been admitted in this contact. PE: There were no vitals filed for this visit. Estimated body mass index is 43.18 kg/m?? as calculated from the following: Height as of 12/19/22: 1.727 m (5' 8 ). Weight as of 12/19/22: 128.8 kg (284 lb). Gen: NAD, obese HEENT: Sclera non-icteric, clear conjunctiva, MMM. CV: RRR, Normal S1 and S2. No murmur. Chest: Mild scattered wheezing and crackles in bilateral lung leyva Abd: Soft, NT/ND, + normal bowel sounds, no HSM. Extr: No clubbing or edema. Normal strength and ROM. Neuro: No focal neurologic deficits noted. Skin: Warm and dry, no rashes or other skin lesions present. LABS: Reviewed the labs in EMR. Recent Labs Component Name 08/30/21 1136 02/15/21 1325 12/20/20 1035 NA 140 143 142 POTASSIUM 4.8* 4.5 4.7* CO2 23 30* 27 BUN 12 13 12 CREATININE 1.02 1.12 1.06 GLUCOSE 99 94 104 CALCIUM 9.4 9.4 9.0 ALT 38 51 41 ALKPHOS 113 122 107 AST 26 26 26 EGFR 85* 76* 81* Recent Labs Component Name 08/30/21 1136 02/15/21 1325 12/20/20 1035 11/16/20 1120 09/28/20 1438 WBC 12.6* 16.0* 12.5* 11.7* 10.2 RBC 4.19* 4.27* 4.28* 4.31 4.59 HGB 13.4 13.4 12.8 12.7* 12.3* HCT 39.1 39.5 37.5 37.4* 38.5* MCV 93.3 92.5 87.6 86.8 83.9 MCHC 34.3 33.9 34.1 34.0 31.9* PLTCOUNT 274 366 350 368 470* NEUTPCT 58.0 - - 54.6 49.6 NEUTABS 7.3* 10.24* 7.75* 6.4 5.1 IMAGING REVIEWED: PFTs 10/24/2023 ASSESSMENT: # Dyspnea on exertion 2/2 to lung injury - Current regimen: Symbicort BID, Albuterol BID and prn with 2L O2 on exertion - PFTs grossly normal # 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, c/b hypoxemia and pulmonary fibrosis and bronchiectasis # Chronic hypoxemic respiratory failure, likely secondary to above - Previous ambulatory oxygen test noted that patient does not require oxygen however he is unable to tolerate walking short distances without using his oxygen # History of tobacco use and marijuana use # NHL s/p SCT, R-CHOP, splenectomy # LISSA, currently prescribed CPAP and nocturnal oxygen - Has self-weaned night time oxygen to 2L # Obesity, BMI 43 Plan: - Gave patient Trelegy 200mcg sample to take once daily - Advised patient to try Trelegy instead of Symbicort and let office know if it is better / worse/ the same as his previous Symbicort - Stop Symbicort inhaler - Advised patient to only use albuterol rescue inhaler as needed for shortness of breath, does not need to take it scheduled twice daily - Ordered ambulatory oximetry test - Ordered nocturnal desaturation test to be performed on CPAP but off oxygen - Chest Xray 2 view - Per our evaluation, Mr. Guillen is clear to get his necessary hip replacement surgery. He does nothave significant risk of adverse surgical events from a pulmonary perspective. Follow-up in 3 month(s). Patient seen and staffed with attending, Dr. Francis. Luly Ch MD Internal Medicine, PGY-2 [facility] 02/26/2024 8:00 AM Associated attestation - Andrew Francis MD - 02/27/2024 12:00 PM CDT The patient reports that his breathing has continued to improve. He denies SOB at rest. He has BARNES with walking approximately 3 blocks while using 2 L/min of oxygen. He continues to have a dry cough.He is using his Albuterol MDI approximately 5 to 6 times daily. He uses Symbicort 160/4.5 mcg 2p bid. He remains on biPAP at night and has been weaning his oxygen bleed-in. He is awaiting L hip replacement and a incisional hernia repair. His PFTs reveal a moderately reduced DLCOc. There has been interval improvement in his FEV1 and FVC. At this time, I will have him try Trelegy 200/62.5/[address] of his Symbicort. If he believes the Trelegy is more effective, I will call in a script. I will have him undergo a nocturnal oxymetry study on room air and CPAP to see if he needs oxygenbleed-in at night. I will have him undergo a repeat oxygen titration. I will have him undergo a PA/Lat CXR. With respect to his upcoming hip surgery and incisional hernia surgery, he is at minimally increased risk for perioperative respiratory complications. The risk is not prohibitive. No further pulmonary testing is required for risk stratification. I will see him on return to clinic in 3 months. I have seen, examined and discussed the patient with the resident and I agree with the the findingsand plan of care/recommendations as documented by the resident. Date of service: 02/26/24 Andrew Francis M.D. Boat Captain of Internal Medicine Division of Pulmonary, Critical Care and Sleep Medicine [facility] documented in this encounter Plan of Treatment Upcoming Encounters Date Type Department Care Team (Late st Contact Info) Description 08/26/2024 11:00 AM RIG BUILDER Office Visit [facility] - Pulmonology [address] [place] [address], [place] [id number] Andrew Francis MD [address] [place] [address] DIV OF PULMONARY/[place] [address] Scheduled Orders Name Type Priority Associated Diagnoses Order Schedule NOCTURNAL DESATURATION STUDY Respiratory Care Routine Post-acute sequelae of COVID-19 (PASC) 1 Occurrences starting 02/26/2024 until 02/25/2025 XR Chest 2Vw Imaging Routine Post-acute sequelae of COVID-19 (PASC) 1 Occurrences starting 02/26/2024 until 02/25/2025 documented as of this encounter Results * AMBULATORY OXIMETRY (03/08/2024 2:07 PM CDT) Impressions Apolinar Ramos MD - 03/08/2024 2:07 PM CDT [facility] DEPARTMENT OF PULMONARY, CRITICAL CARE, AND SLEEP MEDICINE OXYGEN TITRATION STUDY Marcello Guillen 03/08/2024 INTERPRETATION The test was performed on [...] with 2MPH speed cannot be made. Shara Crouch DO I have personally reviewed the pulmonary function test data and made adjustment to the interpretation where necessary. Apolinar Ramos MD 03/09/2024 Narrative Apolinar Ramos MD - 03/08/2024 2:07 PM CDT Shara Crouch DO ? 03/08/2024 ??4:12 PM Procedure Note Shara Crouch DO - 03/08/2024 2:07 PM CDT Images from the original note were not included. Andrew Francis MD RESPIRATORY THERAPY ORDERABLES documented in this encounter Visit Diagnoses Diagnosis Post-acute sequelae of COVID-19 (PASC)- Primary Post-acute sequelae of COVID-19 (PASC) documented in this encounter Care Teams Knobber Relationship Specialty Start Date End Date Ran Nuñez MD [address] [place] [address] PCP - General Family Medicine 08/30/21 Hillary Apple MD [address] [place] [address] Hematology and Oncology 03/17/19 Tony Dumont MD [address] [place] [address] Hematology and Oncology 03/17/19 Maryjo Reinoso, REYNA Business Travel Consultant 03/17/19 Madyson Clay, PharmD 03/17/19 Dana Lala, SEO PROFESSIONAL-WOOD AND WOOD PRODUCTS LABOURER [facility] [address]nd [place] [address] Oncology 03/17/19 Tiffanie Nguyen, JOSE DAVID-TESTING AND REGULATING TECHNICIAN [address] [facility] [address] [place] [address] Family Medicine 03/17/19 Cesar Tavares MD [address] [facility] 2nd [place] [address] Referring Physician Medical Oncology 03/23/19 Joy Bob 09/22/19 Tony Dumont MD [address] [place] [address] Hematology and Oncology 10/30/21 Shalini Segal MD [address] [facility] OF HEMATOLOGY & [place] [address] 5Th Grade Teacher/Oncologist Hematology and Oncology 10/30/21 Stefanie Burns, ROSEMARY Registered Nurse 10/30/21 Fatemeh Bolaños, RN Registered Nurse 10/30/21 documented as of this encounter
--- OUTSIDE RECORDS SUMMARY | 2024-08-18 00:20 | XMS_ITS ---
Author Organization [facility] Address [address] [place] [address] Care Team Providers Care Civil Engineering Project Manager Name Role Phone Hillary Apple MD Unavailable [phone] Tony Dumont MD Unavailable [phone] Maryjo Reinoso LCSW Unavailable Unavailable Madyson Clay PharmD Unavailable Unavaila Dana Galicia SPEEDBOAT OPERATOR-RECREATIONAL SPORTS DIRECTOR Unavailable [phone] Tiffanie Nguyen SPEEDBOAT OPERATOR-MACHINE CELL TUBER Unavailable [phone] Cesar Tavares MD Unavailable [phone] Joy Bob Unavailable Fanta Ran Augustine MD Primary Care Provider Tony Dumont MD Unavailable [phone] Shalini Segal MD Unavailable [phone] Stefanie Burns RN Unavailable Unavaila Fatemeh Kelly RN Unavailable Unavailable Chandana Lu MD Unavailable [phone] Active Problems Problem Noted Date Diagnosed Date [...] glass opacity present on imaging of lung Current Oncology Plans BMT HPC SUPPORTIVE CARE?[facility] USE ONLY* Plan Start Date:05/24/2019 Plan Provider:Tiffanie Nguyen APRN-CNP Linked Problems Diffuse large B-cell lymphom a, unspecified body region (HCC) Treatment Medications No medications scheduled. Past Plans ONCOLOGY ADJUNCTIVE CARE Plan Name Start Date Discontinue Date Treatment Medications Discontinue Reason Plan Provider Cycles SUPPORT (IMMUNE GLOBULIN 10%) (IVIG) 0 08/04/2022 No medications scheduled. Therapy Complete Tiffanie Nguyen APRN-CNP 9 of 10 cycles started BMT MOBILIZATION + COLLECTION - AUTOLOGOUS HPC APHERESIS (FILGRASTIM + PLERIXAFOR) 0 02/28/2020 No medications scheduled. Therapy Complete iHllary Apple MD 3 of 3 cycles started ONCOLOGY TREATMENT Plan Name Start Date Discontinue Date Treatment Medications Discontinue Reason Plan Provider Cycles BMT CONDITIONING [id number] SCHEMA A - (BEAM) CARMUSTINE + ETOPOSIDE + CYTARABINE + MELPHALAN 10/19/19 20 08/04/2022 carmustine (BCNU) Infusioncytarabine (Cytosar) Infusionetoposide (Vepesid) 1250 mL infusionmelphalan (Alkeran) infusion Therapy Complete Rafaela Sood APRN-CNP 2 of 2 cycles started Radiation Treatments * No radiation treatments are documented for this patient in [facility]. Treatments may have been administered in another system. Lifetime Dose Tracking * Chemical Lifetime Dose Automatic Entry Manual Entr y Dose Length Product 8,650.6 mGy-cm 8,650.6 mGy-cm 0 mG y-cm
--- OUTSIDE RECORDS SUMMARY | 2024-08-18 00:20 | XMS_ITS | Encounter Summary ---
Author Organization [facility] Address [address] [facility] [place] [address] Care Team Providers Care Document Control Supervisor Name Role Phone Hillary Apple MD Unavailable [phone] Tony Dumont MD Unavailable [phone] Maryjo Reinoso LCSW Unavailable Unavailable Madyson Clay PharmD Unavailable Unavaila Dana Galicia PROTECTIVE SIGNAL OPERATOR-STORE HAND Unavailable [phone] Tiffanie Nguyen PROTECTIVE SIGNAL OPERATOR-CHILD PROTECTION SPECIALIST Unavailable [phone] Cesar Tavares MD Unavailable [phone] Joy Bob Unavailable Fanta Ran Augustine MD Primary Care Provider Tony Dumont MD Unavailable [phone] Shalini Sgeal MD Unavailable [phone] Stefanie Burns RN Unavailable Unavaila Fatemeh Kelly RN Unavailable Unavailable Chandana Lu MD Unavailable [phone] Encounter Details Date Type Department Care Team (Latest Contact Info) Description 07/12/2024 Travel Social History Tobacco Use Types Packs/Day Years [...] st Contact Info) Description 08/26/2024 11:00 AM SEISMIC COMPUTER Office Visit [facility] - Pulmonology [address] [place] [address], [place] [address] Andrew Francis MD [address] [place] [address] 2L DIV OF PULMONARY/[place] [address] documented as of this encounter Visit Diagnoses Not on filedocumented in this encounter Care Teams Document Control Supervisor Relationship Specialty Start Date End Date Ran Nuñez MD [address] [place] [address] PCP - General Family Medicine 08/30/21 Hillary Apple MD [address] [place] [address] Hematology and Oncology 03/17/19 Tony Dumont MD [address] [place] [address] Hematology and Oncology 03/17/19 Maryjo Reinoso, REYNA Hand Ii Cutter 03/17/19 Madyson Clay, PharmD 03/17/19 Dana Lala, PROTECTIVE SIGNAL OPERATOR-STORE HAND [address] [facility] 2nd [place] [address] Oncology 03/17/19 Tiffanie Nguyen, PROTECTIVE SIGNAL OPERATOR-CHILD PROTECTION SPECIALIST [address] [facility] [place] [address] [place] [address] Family Medicine 03/17/19 Cesar Tavares MD [address] [facility] 2nd [place] [address] Referring Physician Medical Oncology 03/23/19 Joy Bob 09/22/19 Tony Dumont MD [address] [place] [address] Hematology and Oncology 10/30/21 Shalini Segal MD [address] [facility] OF [facility] & [place] [address] Customer Care Assistant/Oncologist Hematology and Oncology 10/30/21 Stefanie Burns, RN Registered Nurse 10/30/21 Fatemeh Bolaños RN Registered Nurse 10/30/21 Chandana Lu MD [address] [place] [address] Orthopedic Surgery 03/30/24 documented as of this encounter
--- OUTSIDE RECORDS SUMMARY | 2024-08-18 00:20 | XMS_ITS | Encounter Summary ---
Author Organization [facility] Address [address] [place] [address] Care Team Providers Care Embedded Systems Software Developer Name Role Phone Hillary Apple MD Unavailable [phone] Tony Dumont MD Unavailable [phone] Maryjo ReinosoW Unavailable Unavailable Madyson Clay PharmD Unavailable Unavaila Dana Galicia LEGAL COORDINATOR-THREADING MACHINE TENDER Unavailable [phone] Tiffanie Nguyen LEGAL COORDINATOR-INVESTMENT REPRESENTATIVE Unavailable [phone] Cesar Tavares MD Unavailable Joy Bob Unavailable Fanta Ran Augustine MD Primary Care Provider Tony Dumont MD Unavailable [phone] Shalini Segal MD Unavailable [phone] Stefanie Burns RN Unavailable Unavaila Fatemeh Kelly RN Unavailable Unavailable Chandana Lu MD Unavailable [phone] Reason for Visit * Reason Onset Date Comments Medication Issue 03/01/2024 Encounter Details Date Type Department Care Team (Late st Contact Info) Description 03/01/2024 Telephone [facility] - Pulmonology [address] [place] [address], [place] [address] Andrew Francis MD [address] [place] [address] 2L DIV OF PULMONARY/[place] [address] Medication Issue Social History Tobacco Use Types Packs/Day Years [...] encounter Miscellaneous Notes * Telephone Encounter - [facility] Yusuf - 03/01/2024 10:32 AM CDT Patient called to let Dr. Francis know that the Trelegy Ellipta is working great, much better thanthe Symbicort. Having to use his albuterol inhaler much less. Also wheezing much less. Patient call back number is [phone] documented in this encounter Plan of Treatment Upcoming Encounters Date Type Department Care Team (Late st Contact Info) Description 08/26/2024 11:00 AM ENVIRONMENTAL TECHNICIAN Office Visit [facility] - Pulmonology [address] [place] [address], [place] [address] Andrew Francis MD [address] [place] [address] 2L DIV OF PULMONARY/[place] [address] documented as of this encounter Visit Diagnoses Not on filedocumented in this encounter Care Teams Embedded Systems Software Developer Relationship Specialty Start Date End Date Ran Nuñez MD [address] [place] [address] PCP - General Family Medicine 08/30/21 Hillary Apple MD [address] [place] [address] Hematology and Oncology 03/17/19 Tony Dumont MD [address] [place] [address] Hematology and Oncology 03/17/19 Maryjo Reinoso, DENTAL MECHANIC Button Grader 03/17/19 Madyson Clay, PharmD 03/17/19 Dana Lala, LEGAL COORDINATOR-THREADING MACHINE TENDER [address] [place] [address] Oncology 03/17/19 Tiffanie Nguyen, LEGAL COORDINATOR-INVESTMENT REPRESENTATIVE [address] [facility] 2nd [place] [address] Family Medicine 03/17/19 Cesar Tavares MD [address] [facility] 2nd [place] [address] Referring Physician Medical Oncology 03/23/19 Joy Bob 09/22/19 Tony Dumont MD [address] [place] [address] Hematology and Oncology 10/30/21 Shalini Segal MD [address] [facility] OF HEMATOLOGY & [place] [address] Cutter And Paster Press Clippings/Oncologist Hematology and Oncology 10/30/21 Stefanie Burns, RN Registered Nurse 10/30/21 Fatemeh Bolaños RN Registered Nurse 10/30/21 Chandana Lu MD [address] [place] [address] Orthopedic Surgery 03/30/24 documented as of this encounter
--- OUTSIDE RECORDS SUMMARY | 2024-08-18 00:20 | XMS_ITS | Encounter Summary ---
Author Organization [facility] Address [address] [facility] [place] [address] Care Team Providers Care Emergency Dept Tech Name Role Phone Hillary Apple MD Unavailable [phone] Tony Dumont MD Unavailable [phone] Maryjo Reinoso LCSW Unavailable Unavailable Madyson Clay PharmD Unavailable Unavaila Dana Galicia BULK COOLER INSTALLER-DECK OFFICER Unavailable [phone] Tiffanie Nguyen BULK COOLER INSTALLER-RELAY TECHNICIAN Unavailable [phone] Cesar Tavares MD Unavailable [phone] oJy Bob Unavailable Fanta Ran Augustine MD Primary Care Provider Tony Dumont MD Unavailable [phone] Shalini Segal MD Unavailable Stefanie Burns RN Unavailable UnavailFatemeh Briones RN Unavailable Unavailable Encounter Details Date Type Department Care Team (Latest Contact Info) Description 10/24/2023 Travel Social History Tobacco Use Types Packs/Day [...] st Contact Info) Description 08/26/2024 11:00 AM PRESIDENT AND CHIEF OPERATING OFFICER Office Visit [facility] - Pulmonology [address] [place] [address], [place] [address] Andrew Francis MD [address] [place] [address] 2L DIV OF PULMONARY/[place] [address] documented as of this encounter Visit Diagnoses Not on filedocumented in this encounter Care Teams Emergency Dept Tech Relationship Specialty Start Date End Date Ran Nuñez MD [address] [place] [address] PCP - General Family Medicine 08/30/21 Hillary Apple MD [address] [place] [address] Hematology and Oncology 03/17/19 Tony Dumont MD [address] [place] [address] Hematology and Oncology 03/17/19 Maryjo Reinoso LCSW Driver Recruiter 03/17/19 Madyson Clay, PharmD 03/17/19 Dana Lala, BULK COOLER INSTALLER-DECK OFFICER [address] 2nd [place] [address] Oncology 03/17/19 Tiffanie Nguyen, BULK COOLER INSTALLER-RELAY TECHNICIAN [address] [facility] [place] [address] Family Medicine 03/17/19 Cesar Tavares MD [address] [facility] [place] [address] Referring Physician Medical Oncology 03/23/19 Joy Bob 09/22/19 Tony Dumont MD [address] [place] [address] Hematology and Oncology 10/30/21 Shalini Segal MD [address] [facility] OF HEMATOLOGY & [place] [address] Measurement Operator/Oncologist Hematology and Oncology 10/30/21 Stefanie Burns, ROSEMARY Registered Nurse 10/30/21 Fatemeh Bolaños, RN Registered Nurse 10/30/21 documented as of this encounter
--- OUTSIDE RECORDS SUMMARY | 2024-08-18 00:20 | XMS_ITS | Encounter Summary ---
Author Organization [facility] Address [address] [facility] [place] [address] Care Team Providers Care Senior Wind Turbine Technician Name Role Phone Hillary Apple MD Unavailable [phone] Tony Dumont MD Unavailable [phone] Maryjo Reinoso LCSW Unavailable Unavailable Madyson Clay PharmD Unavailable Unavaila Dana Galicia LENS GRINDER AND POLISHER-DIRECTOR OF ENROLLMENT Unavailable [phone] Tiffanie Nguyen LENS GRINDER AND POLISHER-TELESALES CONSULTANT Unavailable [phone] Cesar Tavares MD Unavailable [phone] Joy Bob Unavailable Fanta Ran Augustine MD Primary Care Provider Tony Dumont MD Unavailable [phone] Shalini Segal MD Unavailable [phone] Stefanie Burns RN Unavailable UnavailFatemeh Briones RN Unavailable Unavailable Encounter Details Date Type Department Care Team (Latest Contact Info) Description 02/26/2024 Travel Social History Tobacco Use Types Packs/Day [...] st Contact Info) Description 08/26/2024 11:00 AM TRACK DRESSER Office Visit [facility] - Pulmonology [address] [place] [address], [place] [address] Andrew Francis MD [address] [place] [address] 2L DIV OF PULMONARY/[place] [address] documented as of this encounter Visit Diagnoses Not on filedocumented in this encounter Care Teams Senior Wind Turbine Technician Relationship Specialty Start Date End Date Ran Nuñez MD [address] [place] [address] PCP - General Family Medicine 08/30/21 Hillary Apple MD [address] [place] [address] Hematology and Oncology 03/17/19 Tony Dumont MD [address] [place] [address] Hematology and Oncology 03/17/19 Maryjo Reinoso LCSW Water Resource Manager 03/17/19 Madyson Clay, PharmD 03/17/19 Dana Lala, LENS GRINDER AND POLISHER-DIRECTOR OF ENROLLMENT [address] 2nd [place] [address] Oncology 03/17/19 Tiffanie Nguyen, LENS GRINDER AND POLISHER-TELESALES CONSULTANT [address] [facility] 2[place] [address] Family Medicine 03/17/19 Cesar Tavares MD [address] [facility] 2[place] [address] Referring Physician Medical Oncology 03/23/19 Joy Bob 09/22/19 Tony Dumont MD [address] [place] [address] Hematology and Oncology 10/30/21 Shalini Segal MD [address] [facility] OF HEMATOLOGY & [place] [address] Inspector Watch Assembly/Oncologist Hematology and Oncology 10/30/21 Stefanie Burns, ROSEMARY Registered Nurse 10/30/21 Fatemeh Bolaños, RN Registered Nurse 10/30/21 documented as of this encounter
--- OUTSIDE RECORDS SUMMARY | 2024-08-18 00:20 | XMS_ITS | Encounter Summary ---
Author Organization [facility] Address [address] [facility] [place] [address] Care Team Providers Care Charge Poster Name Role Phone Hillary Apple MD Unavailable [phone] Tony Dumont MD Unavailable [phone] Maryjo ReinosoW Unavailable Unavailable Madyson Clay PharmD Unavailable Unavaila Dana Galicia NAVIGATION OFFICER-MASS COMMUNICATIONS PROFESSOR Unavailable [phone] Tiffanie Nguyen NAVIGATION OFFICER-PRODUCTION CONTROL ANALYST Unavailable [phone] Cesar Tavares MD Unavailable [phone] Joy Bob Unavailable Fanta Ran Augustine MD Primary Care Provider Tony Dumont MD Unavailable [phone] Shalini Segal MD Unavailable [phone] Stefanie Burns RN Unavailable Unavaila Fatemeh Kelly RN Unavailable Unavailable Glenn Hernandez MD Unavailable [phone] Chandana Lu MD Unavailable [phone] Reason for Visit * Reason Onset Date Comments MEDICATION REFILL 08/13/2023 Encounter Details Date Type Department Care Team (Late st Contact Info) Description 08/13/2023 Refill [facility] BMT CLINIC [address] [place] [address] Hillary Apple MD [address] [facility] DIV OF HEMATOLOGY & [place] [address] MEDICATION REFILL Social History Tobacco Use Types [...] st Contact Info) Description 08/26/2024 11:00 AM PRIEST Office Visit [facility] - Pulmonology [facility] [facility], [place] [address] Andrew Francis MD [facility] [facility] 2L DIV OF PULMONARY/[place] [address] documented as of this encounter Visit Diagnoses Not on filedocumented in this encounter Care Teams Charge Poster Relationship Specialty Start Date End Date Ran Nuñez MD [address] [place] [address] PCP - General Family Medicine 08/30/21 [place] [address] [facility] [place] [address] PCP - [facility]Stefany MANRIQUEZ 03/04/23 08/21/23 Hillary Apple MD [address] [place] [address] Hematology and Oncology 03/17/19 Tony Dumont MD [facility] [place] [address] Hematology and Oncology 03/17/19 Maryjo Reinoso, [facility] Machine Sand Mixer 03/17/19 Madyson Clay, PharmD 03/17/19 Dana Lala, NAVIGATION OFFICER-MASS COMMUNICATIONS PROFESSOR [facility] 2nd [place] [address] Oncology 03/17/19 Tiffanie Nguyen, NAVIGATION OFFICER-PRODUCTION CONTROL ANALYST [facility] 2nd [place] [address] Family Medicine 03/17/19 Cesar Tavares MD [address] [place], [place] [address] 2nd [place] [address] Referring Physician Medical Oncology 03/23/19 Joy Bob 09/22/19 Tony Dumont MD [address] [place] [address] Hematology and Oncology 10/30/21 Shalini Segal MD [address] [facility] OF HEMATOLOGY & [place] [address] Rail Signal Designer/Oncologist Hematology and Oncology 10/30/21 Stefanie Burns, RN Registered Nurse 10/30/21 Fatemeh Bolaños, RN Registered Nurse 10/30/21 Chandana Lu MD [address] [facility] [address] [place] [address] Orthopedic Surgery 03/30/24 documented as of this encounter
--- OUTSIDE RECORDS SUMMARY | 2024-08-18 00:20 | XMS_ITS | Encounter Summary ---
Author Organization [facility] Address [address] [place] [address] Care Team Providers Care Soybean Grower Name Role Phone Hillary Apple MD Unavailable [phone] Tony Dumont MD Unavailable [phone] Maryjo ReinosoW Unavailable Unavailable Madyson Clay PharmD Unavailable Unavaila Dana Galicia VENEREAL DISEASE CONTROL HEAD-COMBAT SYSTEMS ENGINEER Unavailable [phone] Tiffanie Nguyen VENEREAL DISEASE CONTROL HEAD-CALENDERING SUPERVISOR Unavailable [phone] Cesar Tavares MD Unavailable [phone] Joy Bob Unavailable Fanta Ran Augustine MD Primary Care Provider Tony Dumont MD Unavailable [phone] Shalini Segal MD Unavailable [phone] Stefanie Burns RN Unavailable UnavailFatemeh Briones RN Unavailable Unavailable Encounter Details Date Type Department Care Team (Latest Contact Info) Description 03/08/2024 11:30 AM CDT - 03/08/2024 11:59 PM CDT Hospital Encounter [facility] [address] [place] [phone] Unknown, Provider Discharge Disposition: Home or Self Care Social History Tobacco Use Types Packs/Day Years [...] No 02/25/2020 documented as of this encounter Medications at Time of Discharge Medication Sig Dispensed Refills Start Date End Date acetaminophen (TYLENOL) 325 MG tablet Take 1 tablet by mouth every 4 hours as needed Maximum allowable Acetaminophen amount = 4 Grams (4000 mg) / 24 hours. 04/05/2020 acyclovir (Zovirax) 400 MG tabletIndications:Jon m cells transplant status (HCC) Take 2 (two) tablets by mouth 2 times daily 360 tablet 3 02/20/2023 albuterol HFA (PROVENTIL;VENTOLIN;P ROAIR) 108 (90 Base) MCG/ACT inhaler Inhale 2 puffs by mouth every 4 hours 04/05/2020 albuterol HFA (Ventolin HFA) 108 (90 Base) MCG/ACT inhaler Inhale 2 (two) puffs by mouth every 4 hours as needed 54 g 4 01/18/2023 benzonatate (Tessalon) 200 MG capsule Take 1 (one) capsule by mouth 3 times daily as needed for Cough 30 capsule 06/30/2022 clonazePAM (KLONOPIN) 1 MG tablet Take 1 (one) tablet by mouth at bedtime 30 tablet 08/15/2021 cyanocobalamin 100 MCG tablet Take 1 (one) tablet by mouth once daily escitalopram (LEXAPRO) 20 MG tablet TAKE 1 TABLET BY MOUTH EVERY DAY 30 tablet 11 08/10/2021 Fluticasone-Umeclidin -Vilant (Trelegy Ellipta) 100-62.5-25 MCG/ACT Inhale 1 (one) puff by mouth once daily 28 Each 5 03/01/2024 HYDROcodone-acetamino phen (NORCO) 5-325 MG tablet Take 1 (one) tablet by mouth every 6 hours as needed for Pain multivitamin daily tablet Take 1 (one) tablet by mouth daily with food ondansetron (Zofran) 8 MG tablet 01/16/2023 penicillin V potassium (VEETIDS) 250 MG tablet Take 1 (one) tablet by mouth 2 times daily 60 tablet 11 05/10/2021 rOPINIRole (REQUIP) 0.25 MG tabletIndications:Res tless Leg Syndrome Take 1 (one) tablet by mouth at bedtime Reasons: Restless Leg Syndrome 90 tablet 3 01/02/2021 documented as of this encounter Procedure Notes * Shara Crouch DO - 03/08/2024 2:07 PM CDTAssociated Order(s): AMBULATORY OXIMETRY Images from the original note were not included. documented in this encounter Plan of Treatment Upcoming Encounters Date Type Department Care Team (Late st Contact Info) Description 08/26/2024 11:00 AM RECEIVING ROOM CLERK Office Visit [facility] - Pulmonology [address] [place] [address], [place] [address] Andrew Francis MD [address] [place] [address] OF PULMONARY/[place] [address] documented as of this encounter Procedures Procedure Name Priority Date/Time Associated Diagnosis Comments HOME O2 EVAL (DESATURATION SCREEN) Routine 03/08/2024 2:07 PM CDT Post-acute sequelae of COVID-19 (PASC) documented in this encounter Results * AMBULATORY OXIMETRY (03/08/2024 2:07 PM CDT) Impressions Apolinar Ramos MD - 03/08/2024 2:07 PM CDT [facility] DEPARTMENT OF PULMONARY, CRITICAL [...] Visit Diagnoses Diagnosis Post-acute sequelae of COVID-19 (PASC) documented in this encounter Care Teams Soybean Grower Relationship Specialty Start Date End Date Ran Nuñez MD [address] [place] [address] PCP - General Family Medicine 08/30/21 Hillary Apple MD [address] [place] [address] Hematology and Oncology 03/17/19 Tony Dumont MD [address] [place] [address] Hematology and Oncology 03/17/19 Maryjo Reinoso, ACCOUNT TECHNICIAN Incoming Freight Clerk 03/17/19 Madyson Clay, PharmD 03/17/19 Dana Lala, VENEREAL DISEASE CONTROL HEAD-COMBAT SYSTEMS ENGINEER [address] 2nd [place] [address] Oncology 03/17/19 Tiffanie Nguyen, VENEREAL DISEASE CONTROL HEAD-CALENDERING SUPERVISOR [address] [address] Family Medicine 03/17/19 Cesar Tavares MD [address] 2nd [place] [address] Referring Physician Medical Oncology 03/23/19 Joy Bob 09/22/19 Tony Dumont MD [address] [place] [address] Hematology and Oncology 10/30/21 Shalini Segal MD [address] [place] [address] OF HEMATOLOGY & [place] [address] Pool Servicer/Oncologist Hematology and Oncology 10/30/21 Stefanie Burns, RN Registered Nurse 10/30/21 Fatemeh Bolaños, RN Registered Nurse 10/30/21 documented as of this encounter
--- OUTSIDE RECORDS SUMMARY | 2024-08-18 00:20 | XMS_ITS | Encounter Summary ---
Author Organization [facility] Address [address] [place] [address] Care Team Providers Care Academic Guidance Specialist Name Role Phone Hillary Apple MD Unavailable [phone] Tony Dumont MD Unavailable [phone] Maryjo ReinosoW Unavailable Unavailable Madyson Clay PharmD Unavailable Unavaila Dana Galicia SANE NURSE-MEDIA PLANNER / BUYER Unavailable [phone] Tiffanie Nguyen SANE NURSE-EXECUTIVE DIRECTOR Unavailable [phone] Cesar Tavares MD Unavailable [phone] Joy Bob Unavailable Fanta Ran Augustine MD Primary Care Provider Tony Dumont MD Unavailable [phone] Shalini Segal MD Unavailable Stefanie Burns RN Unavailable UnavailFatemeh Briones RN Unavailable Unavailable Chandana Lu MD Unavailable [phone] Reason for Visit * Reason Comments Refill Request Encounter Details Date Type Department Care Team (Late st Contact Info) Description 03/29/2024 Refill [facility] CLIN[facility] [address] [place] [address] Tiffanie Nguyen APRN-EXECUTIVE DIRECTOR [address] [place] [address] Refill Request Social History Tobacco Use Types Packs/Day Years [...] st Contact Info) Description 08/26/2024 11:00 AM EVENT PLANNER Office Visit [facility] - Pulmonology [address] [place] [address], [place] [address] Andrew Francis MD [address] [place] [address] 2L DIV OF PULMONARY/[place] [address] documented as of this encounter Visit Diagnoses Diagnosis 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 documented in this encounter Care Teams Academic Guidance Specialist Relationship Specialty Start Date End Date Ran Nuñez MD [address] [place] [address] PCP - General Family Medicine 08/30/21 Hillary Apple MD [address] [place] [address] Hematology and Oncology 03/17/19 Tony Dumont MD [address] [place] [address] Hematology and Oncology 03/17/19 Maryjo Reinoso, SPECIAL SERVICES COORDINATOR On Site Coordinator 03/17/19 Madyson Clay, PharmD 03/17/19 Dana Lala, SANE NURSE-MEDIA PLANNER / BUYER [address] [facility] 2nd [place] [address] Oncology 03/17/19 Tiffanie Nguyen, SANE NURSE-EXECUTIVE DIRECTOR [address] [facility] 2nd [place] [address] Family Medicine 03/17/19 Cesar Tavares MD [facility] 2nd [place] [address] Referring Physician Medical Oncology 03/23/19 Joy Bob 09/22/19 Tony Dumont MD [address] [place] [address] Hematology and Oncology 10/30/21 Shalini Segal MD [address] [facility] OF HEMATOLOGY [place] [address] [employer] Advisor/Oncologist Hematology and Oncology 10/30/21 Stefanie Burns, RN Registered Nurse 10/30/21 Fatemeh Bolaños, RN Registered Nurse 10/30/21 Chandana Lu MD [address] [place] [address] Orthopedic Surgery 03/30/24 documented as of this encounter
--- OUTSIDE RECORDS SUMMARY | 2024-08-18 00:20 | XMS_ITS | Encounter Summary ---
Author Organization [facility] Address [address] [place] [address] Care Team Providers Care Rework Machine Operator Name Role Phone Hillary Apple MD Unavailable [phone] Tony Dumont MD Unavailable [phone] Maryjo Reinoso LCSW Unavailable Unavailable Madyson Clay PharmD Unavailable Unavaila Dana Galicia RADIO MECHANIC APPRENTICE-DIRECTOR OF PARTNER MARKETING Unavailable [phone] Tiffanie Nguyen RADIO MECHANIC APPRENTICE-DAMPPROOFER Unavailable [phone] Cesar Tavares MD Unavailable Joy Bob Unavailable Fanta Ran Augustine MD Primary Care Provider Tony Dumont MD Unavailable [phone] Shalini Segal MD Unavailable Stefanie Burns RN Unavailable Unavaila Fatemeh Kelly RN Unavailable Unavailable Glenn Hernandez MD Unavailable Encounter Details Date Type Department Care Team (Latest Contact Info) Description 06/12/2023 Travel Social History Tobacco Use Types Packs/Day [...] st Contact Info) Description 08/26/2024 11:00 AM TIRE DUSTER Office Visit [facility] - Pulmonology [address] [place] [address], [place] [address] Andrew Francis MD [address] [place] [address] 2L DIV OF PULMONARY/[place] [address] documented as of this encounter Visit Diagnoses Not on filedocumented in this encounter Care Teams Rework Machine Operator Relationship Specialty Start Date End Date Ran Nuñez MD [address] [place] [address] PCP - General Family Medicine 08/30/21 [place] [address] [place] [address] PCP - Attributed-Charlottey DECLAN 03/04/23 08/21/23 Hillary Apple MD [address] [place] [address] Hematology and Oncology 03/17/19 Tony Dumont MD [address] [place] [address] Hematology and Oncology 03/17/19 Maryjo Reinoso, NURSE OUTREACH CASE MANAGER Renewals Representative 03/17/19 Madyson Clay, PharmD 03/17/19 Dana Lala, RADIO MECHANIC APPRENTICE-DIRECTOR OF PARTNER MARKETING [address] [facility] 2[place] [address] Oncology 03/17/19 Tiffanie Nguyen, RADIO MECHANIC APPRENTICE-DAMPPROOFER [address] [facility] 2nd [place] [address] Family Medicine 03/17/19 Cesar Tavares MD [address] [place] [address] [place] [address] Referring Physician Medical Oncology 03/23/19 Joy Bob 09/22/19 Tony Dumont MD [address] [place] [phone] Hematology and Oncology 10/30/21 Shalini Segal MD [address] [place] [address] HEMATOLOGY & [place] [address] Acid Regenerator/Oncologist Hematology and Oncology 10/30/21 Stefanie Burns, ROSEMARY Registered Nurse 10/30/21 Fatemeh Bolaños, RN Registered Nurse 10/30/21 documented as of this encounter
--- OUTSIDE RECORDS SUMMARY | 2024-08-18 00:20 | XMS_ITS | Encounter Summary ---
Author Organization [facility] Address [address] [place] [address] Care Team Providers Care Duplex Trimmer Name Role Phone Hillary Apple MD Unavailable [phone] Tony Dumont MD Unavailable [phone] Maryjo ReinosoW Unavailable Unavailable Madyson Clay PharmD Unavailable Unavaila Dana Galicia REAL TIME OPERATOR-TELEPHONE SALES REPRESENTATIVE Unavailable [phone] Tiffanie Nguyen REAL TIME OPERATOR-GRAPE CRUSHER Unavailable Cesar Tavares MD Unavailable [phone] Joy Bob Unavailable Fanta Ran Augustine MD Primary Care Provider Tony Dumont MD Unavailable [phone] Shalini Segal MD Unavailable [phone] Stefanie Burns RN Unavailable UnavailFatemeh Briones RN Unavailable Unavailable Reason for Referral * Procedure (Routine) - Closed Specialty Diagnoses / Procedures Referred By Contac t Referred To Contact Pulmonary Disease Diagnoses Hypoxemia Procedures Complete PFT w/wo Bronchodilator [facility] Andrew Francis MD [address] [facility] 2L DIV OF PULMONARY/[place] [address] [facility] Pft [address] [place] [address] Referral ID Status Reason Start Date Expiration Date Visits Re quested Visits Authorized [id number] Closed 12/19/2022 12/19/2023 1 1 Reason for Visit * Procedure (Routine) - Closed Specialty Diagnoses / Procedures Referred By Contac t Referred To Contact Pulmonary Disease Diagnoses Hypoxemia Procedures Complete PFT w/wo Bronchodilator [facility] Andrew Francis MD [address] OF PULMONARY/[place] [address] [facility] Pft [address] [place] [address] Referral ID Status Reason Start Date Expiration Date Visits Re quested Visits Authorized [id number] Closed 12/19/2022 12/19/2023 1 1 Encounter Details Date Type Department Care Team (Latest Contact Info) Description 10/24/2023 1:00 PM CDT - 10/24/2023 11:59 PM CDT Hospital Encounter [facility] PFT [address] [place] [address] Discharge Disposition: Home or Self Care Social [...] 24 hours. 04/05/2020 acyclovir (Zovirax) 400 MG tabletIndications:St em cells transplant status (HCC) Take 2 (two) tablets by mouth 2 times daily 360 tablet 3 02/20/2023 albuterol HFA (PROVENTIL;VENTOLIN; PROAIR) 108 (90 Base) MCG/ACT inhaler Inhale 2 [...] MOUTH EVERY DAY 30 tablet 11 08/10/2021 HYDROcodone-acetamin ophen (NORCO) 5-325 MG tablet Take 1 (one) tablet by mouth every 6 hours as needed for Pain multivitamin daily tablet Take 1 (one) tablet by mouth daily with food ondansetron (Zofran) 8 MG tablet 01/16/2023 penicillin V potassium (VEETIDS) 250 MG tablet Take 1 (one) tablet by mouth 2 times daily 60 tablet 11 05/10/2021 rOPINIRole (REQUIP) 0.25 MG tabletIndications:Re stless Leg Syndrome Take 1 (one) tablet by mouth at bedtime Reasons: Restless Leg Syndrome 90 tablet 3 01/02/2021 Symbicort 160-4.5 MCG/ACT inhaler Inhale 2 (two) puffs by mouth 2 times daily INHALE 2 PUFFS BY MOUTH TWICE DAILY 10.2 g 07/23/2023 03/01/2024 documented as of this encounter Procedure Notes * Ted Ibanez MD - 10/24/2023 4:08 PM CDTAssociated Order(s): COMPLETE PFT W/WO BRONCHODILATOR Images from the original note were not included. documented in this encounter Plan of Treatment Upcoming Encounters Date Type Department Care Team (Late st Contact Info) Description 08/26/2024 11:00 AM OPTOMETRIST/PRACTICE OWNER Office Visit [facility] - Pulmonology [address] [place] [address], [facility] [place] [address] Andrew Francis MD [address] [place] [address] OF PULMONARY/[place] [address] documented as of this encounter Procedures Procedure Name Priority Date/Time Associated Diagnosis Comments COMPLETE PFT W/WO BRONCHODILATOR Routine 10/24/2023 4:08 PM CDT Hypoxemia documented in this encounter Results * Complete PFT w/wo Bronchodilator [facility] PFT Lab (10/24/2023 4:08 PM CDT) Impressions Patrick Arita MD - 10/24/2023 4:08 PM CDT [facility] DEPARTMENT OF PULMONARY, CRITICAL CARE, AND SLEEP [...] of Pulmonary, Critical Care and Sleep Medicine [facility] I have reviewed the above study and agree with the interpretation as listed above. Patrick Arita MD Sales Department Supervisor of Pulmonary & Critical Care Medicine [facility] Pager [phone] Narrative Patrick Arita MD - 10/24/2023 4:08 PM CDT Ted Ibanez MD ? 10/24/2023 ??4:21 PM Andrew Francis MD RESPIRATORY THERAPY ORDERABLES documented in this encounter Visit Diagnoses Diagnosis Hypoxemia documented in this encounter Care Teams Duplex Trimmer Relationship Specialty Start Date End Date Ran Nuñez MD [address] [place] [address] PCP - General Family Medicine 08/30/21 Hillary Apple MD [address] [place] [address] Hematology and Oncology 03/17/19 Tony Dumont MD [address] [place] [address] Hematology and Oncology 03/17/19 Maryjo Reinoso, REYNA Commercial Floor Covering Installer 03/17/19 Madyson Clay, PharmD 03/17/19 Dana Lala APRN-TELEPHONE SALES REPRESENTATIVE [address] [facility] 2nd FLOOR [facility] [place] [address] Oncology 03/17/19 Tiffanie Nguyen JOSE DAVID-GRAPE CRUSHER [address] [facility] 2nd [place] [address] Family Medicine 03/17/19 Cesar Tavares MD [address] [facility] [place] [address] Referring Physician Medical Oncology 03/23/19 Joy Bob 09/22/19 Tony Dumont MD [address] [place] [address] Hematology and Oncology 10/30/21 Shalini Segal MD [address] [facility] OF HEMATOLOG[facility] & [place] [address] Manager Photo/Oncologist Hematology and Oncology 10/30/21 Stefanie Burns, RN Registered Nurse 10/30/21 Fatemeh Bolaños, RN Registered Nurse 10/30/21 documented as of this encounter
--- OUTSIDE RECORDS SUMMARY | 2024-08-18 00:21 | XMS_ITS | Encounter Summary ---
Author Organization [facility] Address [address] [facility] [address] Care Team Providers Care Floor Covering Layer Name Role Phone Hillary Apple MD Unavailable [phone] Tony Dumont MD Unavailable [phone] Maryjo ReinosoW Unavailable Unavailable Madyson Clay PharmD Unavailable Unavaila Dana Galicia SYSTEMS TESTER-PHOTOGRAMMETRIC COMPILATION SPECIALIST Unavailable [phone] Tiffanie Nguyen SYSTEMS TESTER-UPHOLSTERY CLEANER Unavailable [phone] Cesar Tavares MD Unavailable [phone] Joy Bob Unavailable Fanta Ran Augustine MD Primary Care Provider Tony Dumont MD Unavailable [phone] Shalini Segal MD Unavailable Stefanie Burns RN Unavailable UnavailFatemeh Briones RN Unavailable Unavailable Reason for Visit * Reason Onset Date Comments MEDICATION REFILL 04/24/2022 Encounter Details Date Type Department Care Team (Late st Contact Info) Description 04/18/2022 Refill [facility] Pulmonary, Critical Care and Sleep Medicine [address] [facility], [place] [address] Andrew Francis MD [address] [facility] 2L DIV OF PULMONARY/CRITICAL CARE [place], [place] [id number] MEDICATION REFILL Social History Tobacco Use Types Packs/Day Years Used Date Smoking Tobacco: Former Cigarettes 0.5 18 1 984 - 2001 Smokeless Tobacco: Former Chew Quit: 2017 Alcohol Use Standard Drinks/Week Comments Not Currently 0 (1 standard drink = 0.6 oz pur e alcohol) Sex and Gender Information Value Date Recorded [...] encounter Miscellaneous Notes * Telephone Encounter - Dano Rehman RN - 04/18/2022 12:34 PM CDT Generic Substitution Request Refill Request Marcello Guillen CARMELO: 12/20/2021 NOV scheduled: 08/22/2022 LRF: 03/27/2022 Qty Disp: 30.6g # of refills: 4 Allergies: Allergies Allergen Reactions ??? Adhesive Sensitivity Urticaria and Other Electrodes -- welps where stickers are Also, use paper tape Pended Medication Order: Requested Prescriptions Pending Prescriptions Disp Refills ??? budesonide-formoterol (Symbicort) 160-4.5 MCG/ACT inhaler 30.6 g 4 Sig: Inhale 2 (two) puffs by mouth 2 times daily documented in this encounter Plan of Treatment Upcoming Encounters Date Type Department Care Team (Late st Contact Info) Description 08/26/2024 11:00 AM SAUSAGE MEAT TRIMMER Office Visit [facility] - Pulmonology [address] [facility], [place] [address] Andrew Francis MD [address] [place] [address] 2L DIV OF PULMONARY/[place] [address] documented as of this encounter Visit Diagnoses Not on filedocumented in this encounter Care Teams Floor Covering Layer Relationship Specialty Start Date End Date Ran Nuñez MD [address] [place] [address] PCP - General Family Medicine 08/30/21 Hillary Apple MD [address] [place] [address] Hematology and Oncology 03/17/19 Tony Dumont MD [address] [place] [address] Hematology and Oncology 03/17/19 Maryjo Reinoso, WOOD FLOOR REFINISHER Rn Navigator 03/17/19 Madyson Clay, PharmD 03/17/19 Dana Lala SYSTEMS TESTER-PHOTOGRAMMETRIC COMPILATION SPECIALIST [address] [facility] 2nd [place] [address] Oncology 03/17/19 Tiffanie Nguyen, SYSTEMS TESTER-UPHOLSTERY CLEANER [address] 2nd [place] [address] Family Medicine 03/17/19 Cesar Tavares MD [address] [place], [place] [address]TA [facility] 2nd [place] [address] Referring Physician Medical Oncology 03/23/19 Joy Bob 09/22/19 Tony Dumont MD [address] [place] [address] Hematology and Oncology 10/30/21 Shlaini Segal MD [address] [place] [address] OF HEMATOLOGY & [place] [address] Geophysical Party Chief/Oncologist Hematology and Oncology 10/30/21 Stefanie Burns, RN Registered Nurse 10/30/21 Fatemeh Bolaños, RN Registered Nurse 10/30/21 documented as of this encounter
--- OUTSIDE RECORDS SUMMARY | 2024-08-18 00:21 | XMS_ITS | Encounter Summary ---
Author Organization [facility] Address [address] [facility] [place] [address] Care Team Providers Care Space Operations Officer Name Role Phone Hillary Apple MD Unavailable [phone] Tony Dumont MD Unavailable [phone] Maryjo ReinosoW Unavailable Unavailable Madyson Clay PharmD Unavailable Unavaila Dana Galicia GAGE DESIGNER-HEALTH/SAFETY JOB TITLES Unavailable [phone] Tiffanie Nguyen GAGE DESIGNER-FACIALIST Unavailable Cesar Tavares MD Unavailable [phone] Joy Bob Unavailable Fanta Ran Augustine MD Primary Care Provider Tony Dumont MD Unavailable [phone] Shalini Segal MD Unavailable Stefanie Burns RN Unavailable UnavailFatemeh Briones RN Unavailable Unavailable Encounter Details Date Type Department Care Team (Late st Contact Info) Description 12/04/2021 Telephone [facility] CLIN[facility] [address] [place] [address] Stefanie Burns, RN Social History Tobacco Use Types Packs/Day Years [...] encounter Miscellaneous Notes * Telephone Encounter - Stefanie Burns RN - 12/04/2021 11:37 AM CDT Attempted to reach patient regarding scheduling titers. Suggested return date 12/20 to coincide withanother [facility] appt. No answer; left voicemail requesting return call. documented in this encounter Plan of Treatment Upcoming Encounters Date Type Department Care Team (Late st Contact Info) Description 08/26/2024 11:00 AM STUDIO ASSISTANT Office Visit [facility] Physician Group - Pulmonology [address] [place] [address], [place] [address] Andrew Francis MD [address] [place] [address] 2L DIV OF PULMONARY/[place] [address] documented as of this encounter Visit Diagnoses Not on filedocumented in this encounter Care Teams Space Operations Officer Relationship Specialty Start Date End Date Ran Nuñez MD [address] [place] [address] PCP - General Family Medicine 08/30/21 Hillary Apple MD [address] [place] [address] Hematology and Oncology 03/17/19 Tony Dumont MD [address] [place] [address] Hematology and Oncology 03/17/19 Maryjo Reinoso, HEAD END DESIZING MACHINE OPERATOR Almond Blancher Hand 03/17/19 Madyson Clay, PharmD 03/17/19 Dana Lala, GAGE DESIGNER-HEALTH/SAFETY JOB TITLES [address] 2[address] [place] [address] Oncology 03/17/19 Tiffanie Nguyen, GAGE DESIGNER-FACIALIST [address] 2nd [place] [address] Family Medicine 03/17/19 Cesar Tavares MD [address] 2[address] [place] [address] Referring Physician Medical Oncology 03/23/19 Joy Bob 09/22/19 Tony Dumont MD [address] [place] [address] Hematology and Oncology 10/30/21 Shalini Segal MD [facility] [facility] OF HEMATOLOGY [place] [address] Heat Treat Worker/Oncologist Hematology and Oncology 10/30/21 Stefanie Burns, ROSEMARY Registered Nurse 10/30/21 Fatemeh Bolaños, RN Registered Nurse 10/30/21 documented as of this encounter
--- OUTSIDE RECORDS SUMMARY | 2024-08-18 00:21 | XMS_ITS | Encounter Summary ---
Author Organization [facility] Address [address] [place] [address] Care Team Providers Care Senior Housekeeper Name Role Phone Hillary Apple MD Unavailable [phone] Tony Dumont MD Unavailable [phone] Maryjo Reinoso LCSW Unavailable Unavailable Madyson Clay PharmD Unavailable Unavaila Dana Galicia BUS DRIVER SCHOOL-CONTRACT PROGRAMMER Unavailable [phone] Tiffanie Nguyen BUS DRIVER SCHOOL-WOOD SCRAP HANDLER Unavailable [phone] Cesar Tavares MD Unavailable [phone] Joy Bob Unavailable Fanta Ran Augustine MD Primary Care Provider Tony Dumont MD Unavailable [phone] Shalini Segal MD Unavailable [phone] Stefanie Burns RN Unavailable UnavailFatemeh Briones RN Unavailable Unavailable Encounter Details Date Type Department Care Team (Latest Contact Info) Description 12/19/2022 Travel Social History Tobacco Use Types Packs/Day [...] Orientation Straight 03/27/2022 11 :34 AM CDT COVID-19 Exposure Response Date Recorded In the last 10 days, have fred u been in contact with someone who was confirmed or suspected to have Coronavirus/COVID-19? No / Unsure 12/02/2022 4:09 PM CDT documented as of this encounter Functional [...] st Contact Info) Description 08/26/2024 11:00 AM FIBERGLASS LUGGAGE MOLDER Office Visit [facility] Group - Pulmonology [address] [place] [address], [place] [address] Andrew Francis MD [address] [place] [address] 2L DIV OF PULMONARY/[place] [address] documented as of this encounter Visit Diagnoses Not on filedocumented in this encounter Care Teams Senior Housekeeper Relationship Specialty Start Date End Date Ran Nuñez MD [address] [place] [address] PCP - General Family Medicine 08/30/21 Hillary Apple MD [address] [place] [address] Hematology and Oncology 03/17/19 Tony Dumont MD [address] [place] [address] Hematology and Oncology 03/17/19 Maryjo Reinoso, REYNA Production Control Expediter 03/17/19 Madyson Clay, PharmD 03/17/19 Dana Lala, BUS DRIVER SCHOOL-CONTRACT PROGRAMMER [address] [facility] 2nd [place] [address] Oncology 03/17/19 Tiffanie Nguyen, BUS DRIVER SCHOOL-WOOD SCRAP HANDLER [address] [facility] 2nd [place] [address] Family Medicine 03/17/19 Cesar Tavares MD [address] [facility] 2nd [place] [address] Referring Physician Medical Oncology 03/23/19 Joy Bob 09/22/19 Tony Dumont MD [address] [place] [address] Hematology and Oncology 10/30/21 Shalini Segal MD [facility] S [facility] OF HEMATOLOGY [place] [address] Special Weapons And Tactics Officer/Oncologist Hematology and Oncology 10/30/21 Stefanie Burns, RN Registered Nurse 10/30/21 Fatemeh Bolaños, RN Registered Nurse 10/30/21 documented as of this encounter
--- OUTSIDE RECORDS SUMMARY | 2024-08-18 00:21 | XMS_ITS | Encounter Summary ---
Author Organization [facility] Address [address] [facility] [place] [address] Care Team Providers Care Pathology Tech Name Role Phone Hillary Apple MD Unavailable [phone] Tony Dumont MD Unavailable [phone] Maryjo Reinoso LCSW Unavailable Unavailable Madyson Clay PharmD Unavailable Unavaila Dana Galicia CONTAINER COORDINATOR-AUTOGLAZIER Unavailable [phone] Tiffanie Nguyen CONTAINER COORDINATOR-MEDIA SERVICES DIRECTOR Unavailable [phone] Cesar Tavares MD Unavailable [phone] Joy Bob Unavailable Fanta Ran Augustine MD Primary Care Provider Tony Dumont MD Unavailable [phone] Shalini Segal MD Unavailable Stefanie Burns RN Unavailable UnavailFatemeh Briones RN Unavailable Unavailable Encounter Details Date Type Department Care Team (Latest Contact Info) Description 08/27/2022 Travel Social History Tobacco Use Types Packs/Day [...] suspected to have Coronavirus/COVID-19? No / Unsure 08/26/2022 1:48 PM LIVESTOCK TRUCKER documented as of this encounter Functional Status [...] st Contact Info) Description 08/26/2024 11:00 AM LIVESTOCK TRUCKER Office Visit [facility] - Pulmonology [address] [place] [address], [place] [address] Andrew Francis MD [address] [place] [address] 2L DIV OF PULMONARY/[place] [address] documented as of this encounter Visit Diagnoses Not on filedocumented in this encounter Care Teams Pathology Tech Relationship Specialty Start Date End Date Ran Nuñez MD [address] [place] [address] PCP - General Family Medicine 08/30/21 Hillary Apple MD [address] [place] [address] Hematology and Oncology 03/17/19 Tony Dumont MD [address] [place] [address] Hematology and Oncology 03/17/19 Maryjo Reinoso, REYNA Wharf Attendant 03/17/19 Madyson Clay, PharmD 03/17/19 Dana Lala, CONTAINER COORDINATOR-AUTOGLAZIER [address] [facility] 2nd [place] [address] Oncology 03/17/19 Tiffanie Nguyen, CONTAINER COORDINATOR-MEDIA SERVICES DIRECTOR [address] [facility] [place] [address] Family Medicine 03/17/19 Cesar Tavares MD [address] [facility] [place] [address] Referring Physician Medical Oncology 03/23/19 Joy Bob 09/22/19 Tony Dumont MD [address] [place] [address] Hematology and Oncology 10/30/21 Shalini Segal MD [facility] S [facility] OF HEMATOLOGY & [place] [address] Paint Spray Tender/Oncologist Hematology and Oncology 10/30/21 Stefanie Burns, RN Registered Nurse 10/30/21 Fatemeh Bolaños, RN Registered Nurse 10/30/21 documented as of this encounter
--- OUTSIDE RECORDS SUMMARY | 2024-08-18 00:21 | XMS_ITS | Encounter Summary ---
Author Organization [facility] Address [address] [facility] [place] [address] Care Team Providers Care Waiter/Waitress Counter Name Role Phone Hillary Apple MD Unavailable [phone] Tony Dumont MD Unavailable [phone] Maryjo Reinoso LCSW Unavailable Unavailable Madyson Clay PharmD Unavailable Unavaila Dana Galicia TECHNICAL SOLUTIONS DIRECTOR-EMR ANALYST Unavailable [phone] Tiffanie Nguyen TECHNICAL SOLUTIONS DIRECTOR-TIRE CHANGER Unavailable Cesar Tavares MD Unavailable [phone] Joy Bob Unavailable Fanta Ran Augustine MD Primary Care Provider Tony Dumont MD Unavailable [phone] Shalini Segal MD Unavailable [phone] Stefanie Burns RN Unavailable UnavailFatemeh Briones RN Unavailable Unavailable Encounter Details Date Type Department Care Team (Latest Contact Info) Description 08/26/2022 Travel Social History Tobacco Use Types Packs/Day [...] Coronavirus/COVID-19? No / Unsure 08/26/2022 1:48 PM SERVICE STATION MANAGER documented as of this encounter Functional Status [...] st Contact Info) Description 08/26/2024 11:00 AM SERVICE STATION MANAGER Office Visit [facility] Group - Pulmonology [address] [place] [address], [place] [address] Andrew Francis MD [address] [place] [address] 2L DIV OF PULMONARY/[place] [address] documented as of this encounter Visit Diagnoses Not on filedocumented in this encounter Care Teams Waiter/Waitress Counter Relationship Specialty Start Date End Date Ran Nuñez MD [address] [place] [address] PCP - General Family Medicine 08/30/21 Hillary Apple MD [address] [place] [address] Hematology and Oncology 03/17/19 Tony Dumont MD [address] [place] [address] Hematology and Oncology 03/17/19 Maryjo Reinoso, REYNA Operations Executive 03/17/19 Madyson Clay, PharmD 03/17/19 Dana Lala, TECHNICAL SOLUTIONS DIRECTOR-EMR ANALYST [address] [facility] 2nd [place] [address] Oncology 03/17/19 Tiffanie Nguyen, TECHNICAL SOLUTIONS DIRECTOR-TIRE CHANGER [address] [facility] 2nd [place] [address] Family Medicine 03/17/19 Cesar Tavares MD [address] [facility] 2nd [place] [address] Referring Physician Medical Oncology 03/23/19 Joy Bob 09/22/19 Tony Dumont MD [address] [place] [address] Hematology and Oncology 10/30/21 Shalini Segal MD [facility] S [facility] OF HEMATOLOGY & [place] [address] Fork Repairer/Oncologist Hematology and Oncology 10/30/21 Stefanie Burns, RN Registered Nurse 10/30/21 Fatemeh Bolaños, RN Registered Nurse 10/30/21 documented as of this encounter
--- OUTSIDE RECORDS SUMMARY | 2024-08-18 00:21 | XMS_ITS | Encounter Summary ---
Author Organization [facility] Address [address] [facility] [place] [address] Care Team Providers Care Tucking Machine Operator Name Role Phone Hillary Apple MD Unavailable [phone] Tony Dumont MD Unavailable [phone] Maryjo Reinoso LCSW Unavailable Unavailable Madyson Clay PharmD Unavailable Unavaila Dana Galicia REGISTERED RADIOLOGIC TECHNOLOGIST-TRUST AND ESTATES ATTORNEY Unavailable [phone] Tiffanie Nguyen REGISTERED RADIOLOGIC TECHNOLOGIST-SOIL ANALYST Unavailable [phone] Cesar Tavares MD Unavailable [phone] Joy Bob Unavailable Fanta Ran Augustine MD Primary Care Provider Tony Dumont MD Unavailable [phone] Shalini Segal MD Unavailable [phone] Stefanie Burns RN Unavailable UnavailFatemeh Briones RN Unavailable Unavailable Encounter Details Date Type Department Care Team (Latest Contact Info) Description 05/22/2022 Travel Social History Tobacco Use Types Packs/Day [...] st Contact Info) Description 08/26/2024 11:00 AM GEOTHERMAL INSTALLER Office Visit [facility] - Pulmonology [address] [place] [address], [place] [address] Andrew Francis MD [address] [place] [address] DIV OF PULMONARY/[place] [address] documented as of this encounter Visit Diagnoses Not on filedocumented in this encounter Care Teams Tucking Machine Operator Relationship Specialty Start Date End Date Ran Nuñez MD [address] [place] [address] PCP - General Family Medicine 08/30/21 Hillary Apple MD [address] [place] [address] Hematology and Oncology 03/17/19 Tony Dumont MD [address] [place] [address] Hematology and Oncology 03/17/19 Maryjo Reinoso, REYNA Quality Internship 03/17/19 Madyson Clay, PharmD 03/17/19 Dana Lala, REGISTERED RADIOLOGIC TECHNOLOGIST-TRUST AND ESTATES ATTORNEY [address] [facility] 2nd [place] [address] Oncology 03/17/19 Tiffanie Nguyen, REGISTERED RADIOLOGIC TECHNOLOGIST-SOIL ANALYST [address] [facility] 2nd [place] [address] Family Medicine 03/17/19 Cesar Tavares MD [address] [place] [address] Referring Physician Medical Oncology 03/23/19 Joy Bob 09/22/19 Tony Dumont MD [address] [place] [id number] Hematology and Oncology 10/30/21 Shalini Segal MD [facility] S [facility] OF HEMATOLOGY & [place] [address] Decal Applier/Oncologist Hematology and Oncology 10/30/21 Stefanie Burns, RN Registered Nurse 10/30/21 Fatemeh Bolaños RN Registered Nurse 10/30/21 documented as of this encounter
--- OUTSIDE RECORDS SUMMARY | 2024-08-18 00:21 | XMS_ITS | Encounter Summary ---
Author Organization [facility] Address [address] [facility] [place] [address] Care Team Providers Care Music Autographer Name Role Phone Hillary Apple MD Unavailable [phone] Tony Dumont MD Unavailable Maryjo ReinosoW Unavailable Unavailable Madyson Clay PharmD Unavailable Unavaila Dana Galicia COMMERCIAL ACCOUNTANT-ROCK CUTTER Unavailable [phone] Tiffanie Nguyen COMMERCIAL ACCOUNTANT-BAGGAGE PORTER Unavailable Cesar Tavares MD Unavailable [phone] Joy Bob Unavailable Fanta Ran Augustine MD Primary Care Provider Tony Dumont MD Unavailable [phone] Shalini Segal MD Unavailable [phone] Stefanie Burns RN Unavailable Unavaila Fatemeh Kelly RN Unavailable Unavailable Reason for Visit * Reason Onset Date Comments Encounter Opened In Error 04/01/2022 Encounter Details Date Type Department Care Team (Late st Contact Info) Description 04/01/2022 Telephone [facility] Pulmonary, Critical Care and Sleep Medicine [address] [facility], [place] [id number] Andrew Francis MD [address] [facility] 2L DIV OF PULMONARY/[place] [address] Encounter Opened In Error Social History Tobacco Use Types Packs/Day Years [...] Telephone Encounter - Thea Lanza RN - 04/01/2022 10:06 AM CDT Marcello Guillen encounter was opened in error. Please disregard any activity associated with this encounter. 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 Office Visit [facility] - Pulmonology [address] [place] [address], [place] [phone] Andrew Francis MD [address] [place] [address] 2L DIV OF PULMONARY/[place] [address] documented as of this encounter Visit Diagnoses Diagnosis ERRONEOUS ENCOUNTER--DISREGARD- Primary documented in this encounter Care Teams Music Autographer Relationship Specialty Start Date End Date Ran Nuñez MD [address] [place] [phone] PCP - General Family Medicine 08/30/21 Hillary Apple MD [address] [place] [address] Hematology and Oncology 03/17/19 Tony Dumont MD [address] [place] [address] Hematology and Oncology 03/17/19 Maryjo Reinoso, [facility] Injection Molding Process Technician 03/17/19 Madyson Clay, PharmD 03/17/19 Dana Lala, COMMERCIAL ACCOUNTANT-ROCK CUTTER [address] 2nd [place] [address] Oncology 03/17/19 Tiffanie Nguyen, COMMERCIAL ACCOUNTANT-BAGGAGE PORTER [address] 2nd [place] [address] Family Medicine 03/17/19 Cesar Tavares MD [address] 2nd [place] [address] Referring Physician Medical Oncology 03/23/19 Joy Bob 09/22/19 Tony Dumont MD [address] [place] [address] Hematology and Oncology 10/30/21 Shalini Segal MD [address] [place] [address] OF HEMATOLOGY & [place] [address] Recruiter Account Manager/Oncologist Hematology and Oncology 10/30/21 Stefanie Burns, RN Registered Nurse 10/30/21 Fatemeh Bolaños, RN Registered Nurse 10/30/21 documented as of this encounter
--- OUTSIDE RECORDS SUMMARY | 2024-08-18 00:21 | XMS_ITS | Encounter Summary ---
Author Organization [facility] Address [address] [facility] [place] [address] Care Team Providers Care Car Body Mechanic Name Role Phone Hillary Apple MD Unavailable [phone] Tony Dumont MD Unavailable [phone] Maryjo ReinosoW Unavailable Unavailable Madyson Clay PharmD Unavailable Unavaila Dana Galicia EXECUTIVE OFFICER-DOOR CLAMPER Unavailable [phone] Tiffanie Nguyen EXECUTIVE OFFICER-SEO EXECUTIVE Unavailable Cesar Tavares MD Unavailable [phone] Joy Bob Unavailable Fanta Ran Augustine MD Primary Care Provider Tony Dumont MD Unavailable [phone] Shalini Segal MD Unavailable Stefanie Burns RN Unavailable UnavailFatemeh Briones RN Unavailable Unavailable Encounter Details Date Type Department Care Team (Late st Contact Info) Description 01/22/2022 Telephone [facility] B[facility] CLINIC [address] [place] [address] Stefanie Burns, RN Social History [...] Telephone Encounter - Stefanie Burns RN - 01/22/2022 11:13 AM CDT Attempted to reach patient regarding scheduling MMR vaccine appt. No answer; left voicemail requesting return call. documented in this encounter Plan of Treatment Upcoming Encounters Date Type Department Care Team (Late st Contact Info) Description 08/26/2024 11:00 AM DRIFTMAN Office Visit [facility] - Pulmonology [address] [place] [address], [place] [address] Andrew Francis MD [address] [place] [address] 2L DIV OF PULMONARY/[place] [address] documented as of this encounter Visit Diagnoses Not on filedocumented in this encounter Care Teams Car Body Mechanic Relationship Specialty Start Date End Date Ran Nuñez MD [address] [place] [address] PCP - General Family Medicine 08/30/21 Hillary Apple MD [address] [place] [address] Hematology and Oncology 03/17/19 Tony Dumont MD [address] [place] [address] Hematology and Oncology 03/17/19 Maryjo Reinoso, SANE NURSE Machine Maintenance Technician 03/17/19 Madyson Clay, PharmD 03/17/19 Dana Lala, EXECUTIVE OFFICER-DOOR CLAMPER [address] [facility] 2nd [place] [address] Oncology 03/17/19 Tiffanie Nguyen, EXECUTIVE OFFICER-SEO EXECUTIVE [facility] 2[place] [address] Family Medicine 03/17/19 Cesar Tavares MD [facility] 2[place] [address] Referring Physician Medical Oncology 03/23/19 Joy oBb 09/22/19 Tony Dumont MD [address] [place] [phone] Hematology and Oncology 10/30/21 Shalini Segal MD [facility] [place] S [facility] OF HEMATOLOGY & [place] [address] Casing Flusher/Oncologist Hematology and Oncology 10/30/21 Stefanie Burns, RN Registered Nurse 10/30/21 Fatemeh Bolaños, RN Registered Nurse 10/30/21 documented as of this encounter
--- OUTSIDE RECORDS SUMMARY | 2024-08-18 00:21 | XMS_ITS | Encounter Summary ---
Author Organization [facility] Address [address] [place] [address] Care Team Providers Care Utilities Operator Name Role Phone Hillary Apple MD Unavailable [phone] Tony Dumont MD Unavailable [phone] Maryjo Reinoso LCSW Unavailable Unavailable Madyson Clay PharmD Unavailable Unavaila Dana Galicia CLERK CASHIER-INFORMATICS ANALYST Unavailable [phone] Tiffanie Nguyen CLERK CASHIER-MARINE DESIGNER Unavailable [phone] Cesar Tavares MD Unavailable [phone] Joy Bob Unavailable Fanta Ran Augustine MD Primary Care Provider Tony Dumont MD Unavailable [phone] Shalini Segal MD Unavailable [phone] Stefanie Burns RN Unavailable UnavailFatemeh Briones RN Unavailable Unavailable Reason for Referral * Procedure (Routine) - Closed Specialty Diagnoses / Procedures Referred By Contac t Referred To Contact Sleep Center Diagnoses COVID-19 with pulmonary comorbidity LISSA (obstructive sleep apnea) Sleep related hypoxia Intolerance of continuous positive airway pressure (CPAP) ventilation Comorbid sleep-related hypoventilation Periodic limb movement disorder (PLMD) Procedures PROC POLYSOMNOGRAPHY, SPLIT NIGHT PROC POLYSOMNOGRAPHY, SPLIT NIGHT PROC POLYSOMNOGRAPHY, SPLIT NIGHT Adarsh Garcia MD [address] [address] [facility] [address] [place] [address] Referral ID Status Reason Start Date Expiration Date Visits Re quested Visits Authorized [id number] Closed 12/20/2021 12/20/2022 1 1 Reason for Visit * Reason Comments Obstructive Sleep Apnea Neck size 19 inc hes. Cpap Follow-up Encounter Details Date Type Department Care Team (Late st Contact Info) Description 12/20/2021 4:00 PM CDT Office Visit [facility] [address] [place] [address] Adarsh Garcia MD [address] [address] LISSA (obstructive sleep apnea) (Primary Dx); COVID-19 with pulmonary comorbidity; Sleep related hypoxia; Intolerance of continuous positive airway pressure (CPAP) ventilation; Comorbid sleep-related hypoventilation; Periodic limb movement disorder (PLMD); Hypersomnia due to medical condition; Restless legs syndrome (RLS) Social History Tobacco Use Types Packs/Day Years [...] Sign Reading Time Taken Comments Blood Pressure 109/65 12/20/2021 4:48 PM CDT Pulse 74 12/20/2021 4:48 PM CDT Temperature - - Respiratory Rate - - Oxygen Saturation - - Inhaled Oxygen Concentration - - Weight 138.8 kg (306 lb) 12/20/2021 4:48 PM CDT Height 172.7 cm (5' 8 ) 12/20/2021 4:48 PM CDT Body Mass Index 46.53 12/20/2021 4:48 PM CDT documented in this encounter Functional Status [...] No 02/25/2020 documented as of this encounter Progress Notes * Adarsh Garcia MD - 12/20/2021 3:58 PM CDT Images from the original note were not included. [facility], [address] [place] [address] Telephone : [phone] Medical Records Impressions: Very Mild Obstructive Sleep Apnea (AHI= 5.5 respiratory events/h; [place] SaO2=79% with not reported - % of recording below SaO2 of 88%; latency to sleep= 15.5 min; TST= 192.5 min; Efficiency= 89%; N1=8%; N3=11%; latency to R= 69.5 min; Stage R=23%; PLMI=10.4; reported body mass of 118 kg; ESS=16/24;[facility]; 21 Aug 2012) Efficiency 90% with AHI 2.1 on 8 cm water. N1 10%, N3 reduced to 1%; REM rebound optimisitically noted..., but REM was reduced to 21% 06 November 2014. Used full face mask..PLMI 3.5 The patient's mild sleep apnea was treated with full-face mask and high CPAP pressures. CPAP intolerance followed. The patient's problems are complicated and interrelated with significant co- morbidities including hypersomnia. We had discussion as regards diagnostic and therapeutic options related to multiple sleep problems and potentially associated comorbidities. We had discussion as regards pathology associated with untreated or insufficiently treated sleep apnea, including hypertension, cardiac arrhythmia,stroke, [place], sudden , autonomic dysfunction, problems with memory, balance, and decision making, sleepiness, decreased hand-eye coordination and visual response time and risk of accidental injuryor , nocturia, insulin resistance, weight gain, fasting hyperglycemia, etc. Patients with restless leg complaints frequently have low ferritin levels, and it is recommended that these levels be checked to ensure serum content of ferritin > 70 ng/ml and thereby, adequate brain content of iron. Medications and several substances may induce or worsen restless legs syndrome. These include caffeine, alcohol, SSRIs, SNRIs, tricyclic antidepressants, lithium, and dopamine U1ubqgpdfi antagonists such as neuroleptics and antipsychotics. In 80% of patients with restless limbs syndrome, sleep is further compromised by presence of periodic limb movement disorder. By AASM guidelines, in lab sleep study with EMG,EEG, and ECG is indicated. He reports acting out of dreams. REM sleep behavior disorder is characterized by the loss of muscleparalysis during the dream state of sleep. Diagnosis requires the EMG finding of either sustained or intermittent elevation of submental EMG tone or excessivephasic submental or limb EMG twitching during REM sleep and disruption of sleep. Acting out of dreams in RSBD can be dangerous and result in injury or to the patient or bed partner. We recommend at least separate beds if not bedrooms, until the nature of this complaint is evaluated and treated. REM sleep behavior disorder can be mimicked by obstructive sleep apnea with arousals during REM sleep. The patient reports dangerous parasomnia (REM sleep behavior), has high risk for PLMD, has high risk for central apnea associated with prescribed narcotic, and has history of respiratory failure and low nocturnal oxyhemoglobin saturation; he therefore does not meet criteria for home apnea testing. The patient warrants in-laboratory polysomnography to allow EEG, EMG, and ECG, which are not availabl e on home apnea testing. Recommendations: 1. Diagnostic night of polysomnography. 2. Multiple Sleep Latency Test after a night of polysomnography to assess the etiology and significance of uncontrolled daytime sleepiness - this will be deferred until after treatment of any primarysleep disorder identified on PSG. 3. Review of requested data and pending data as ordered. 4. Further recommendations will follow polysomnography and re-evaluation. Subjective: Chief Complaint Patient presents with ??? Obstructive Sleep Apnea Neck size 19 inches. ??? Cpap Follow-up Referral # Creation Date Referral Status Status Update ??[id number] 11/22/2021 Closed 11/27/2021: Status History Status Reason Referral Type Referral Reasons Referral Class Appointment Made No Auth Required Evaluate & Treat Specialty Services Required Internal To Specialty To Provider To Location/Place of Service To Department Sleep Center none none AFF U [facility] To Vendor Referred By By Location/Place of Service By Department none Andrew Francis MD [facility] [address] [facility] AFF U PULM [facility] 2L Priority Start Date Expiration Date Referral Entered By Routine 11/22/2021 11/22/2022 Moon Nance MD Visits Requested Visits Authorized Visits Completed Visits Scheduled 1 1 0 Scheduling Department/Location Provider Visit Type Status Fri12/03/21 ??3:[facility] Adarsh Garcia MD Slu New Sleep Study Canceled Procedure Information Service Details Procedure Modifiers Provider Requested Approved [id number] - AMB REFERRAL TO SLEEP SPECIALIST None 1 1 Diagnosis Information Diagnosis G47.33 (ICD-10-CM) - LISSA (obstructive sleep apnea) History of sleep apnea and CPAP intolerance 2019 COVID-[address] 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 We reviewed with the patient extensive data that included laboratory results, diagnostic results, notes of other practitioners. Complications of COVID-19 in the context of prior mild LISSA and CPAP intolerance at high pressures. Prior new patient no-show for Dr. Ring. Some insomnia. Has rarely acted out dreams. He most recently (last week) was awakened by his as he was kicking her while dreaming of fighting. The patient's mild sleep apnea was treated with full-face mask and high CPAP pressures. CPAP intolerance followed. In the interim, he had bone marrow transplant in the course of treating a B cell lymphoma, followedin 2018 by a bout with respiratory failure associated with COVID 19. He appeared to recover and ABGwas unremarkable in 2019 and 6-min walk demonstrated oxyhemoglobin saturation above 97%. PFTs improved between Aug 2019 and 2021 He has had RLS since therapy for lymphoma. Bone marrow biopsy February 2020 with adequate iron stores. 12/24/21 The patient is on a Respironics device. The patient underwent therapy with autotitrating CPAP at 8 cm water. The patient used the machine 4% of the prior 90 days; 0% for more than 4 h per day. Mean use was 8.1 hours. 95th percentile leak was not calculated. Large leak as definded by Respironics was on average, 0.25 minutes a night. Mean AI was 0/h with 0 obstructive apneae/h. Mean AHI was 1.9 /h. FROM Pulm 28 November 2021 Andrew Francis MD at 11/23/2021 ??7:47 PM Start Pulmonary Rehab. Evaluation in Sleep Clinic. Check Echocardiogram with bubble study. Have evaluate the L abdominal/incisional hernia. RTC 3 months. ?? I have seen, examined and discussed the patient with the fellow and I agree with the the findings and plan of care/recommendations as documented by the fellow. ?? Date of service: 11/22/21 .... h/o prolonged COVID course ( diagnosed in January 2020, hospitalized from February through April 2020 and then eventually tested negative in December 2020) presenting for a follow up today. ?? Reports good days and bad days. Shortness of breath is worse on cold days. Able to ambulate within the house and around the house without oxygen. Reports fatigue with exertion predominantly than shortness of breath. C/o dry cough. C/o difficulty expectorating. C/o wheezing. C/o running nose and noticed some blood streaked nasal discharge this AM. ?? Does note desaturation with exertion when he goes out and about. ?? C/o lightheadedness, dizziness when picking stuff up from the floor. ?? Current symptoms: Cough- As described above. Hemoptysis- no. Shortness of breath- As described above. Allergic rhinitis- Yes Post nasal drip- no GERD- No Chest pain- no Palpitations- No Weight loss- no ?? Exercise capacity: On level ground- about 2-3 blocks Flights of stairs- 1 ?? Current respiratory medications: Symbicort 160/4.5 2 puffs twice daily., Albuterol inhaler - 2 puffs as needed. Using it up to 2-3 times a day when he goes out. Not needingit to use it when at home. ?? Last seen: 08/31/21- Repeat PFTs, oxygen desaturation study, and overnight oximetry ordered. Referred to pulmonary rehab. ... ASSESSMENT : ?? # Moderate persistent asthma not in exacerbation. # H/o COVID infection with sequale # Bronchiectasis - likely post infectious. # Chronic hypoxic respiratory failure with hypoxia with exertion likely 2/2 post COVID. # CHFrEF. # Atrial fibrillation. # H/o tobacco use and marijuana use. # NHL s/p SCT and s/p splenectomy. # LISSA not currently on CPAP ?? PLAN: ?? Diagnostic: ?? - Repeat ECHO with bubble study - Referral to sleep center for evaluation of LISSA. - Follow up on referral to pulmonary rehabilitation ( patient was never contacted for scheduling since the previous referral was sent). ?? Therapeutic: - Continue symbicort 160/4.5 2 puffs BID and albuterol as needed. - DME order for aerobika device for airway clearance. ??Moon Nance MD Upper airway resistance: Snoring Yes Observed cessation of breathing: Don't know Tonsillectomy/Adenoidectomy Yes Cleft palate repair no Mouth or facial surgery: No Nasal trauma or surgery No COPD/Asthma No CHF No LLVEF 68% February 2020 Atrial fibrillation Don't know Pulmonary hypertension Don't know Nocturia No Sleepiness: The patient estimates [place] Sleepiness Scale at 10/24 and fatigue severity scale at 26/63. Symptoms of cataplexy No Sleep paralysis No Hypnagogic or hypnopompic hallucinations No Parasomniae: Sleep Talking No Sleep walking No Sleep Eating No Awaken to eat No Confusional awakenings No Bruxism No Acting out of dreams Yes Maximal body mass: 305 pounds. Age of onset of snoring was about 37 years and mass was about 180 pounds. Mass at age 18 was 240 pounds. Neurological Restless limbs syndrome Yes* (*If restless limbs syndrome is present, the patient has an irresistible urge to move the limbs that is worse at rest, worse when sleepy, causeses delay in sleep, and resolves immediately with movement.) For further details, review the [facility] Sleep History/Patient Questionnaire, which was reviewed in fullwith the patient. Past Medical History: Diagnosis Date ??? Acute respiratory failure with hypoxia ??? Asthma 12/03/2017 ??? B-cell lymphoma 04/18/2017 ??? Back pain 12/24/2021 ??? COVID-19 with pulmonary comorbidity 12/20/2021 ??? Diverticulosis ??? DLBCL (diffuse large B cell lymphoma) 05/24/2019 ??? Fever 02/25/2020 ??? GERD (gastroesophageal reflux disease) taking prevacid prn ??? Ground glass opacity present on imaging of lung ??? H/O echocardiogram 08/11/2019 ??? History of marijuana use 06/28/2019 ??? History of nephrolithiasis 12/24/2021 ??? Hypersomnia due to medical condition 12/24/2021 ??? Hypoxemia 02/19/2021 ??? Lymphadenopathy 04/11/2017 ??? Lymphoma of lymph nodes ??? Multiple body piercings facial ??? LISSA (obstructive sleep apnea) 12/24/2021 ??? Periodic limb movement disorder (PLMD) 12/24/2021 ??? Pneumonia due to COVID-19 virus ??? Port-A-Cath in place right subclavian ??? Restless legs syndrome (RLS) 12/24/2021 ??? S/P splenectomy 09/09/2019 ??? Sleep apnea not using CPAP ??? 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 Stem cells transplant status ??? Transient alteration of awareness 2018 during knee arthroplasty(single incident) Past Surgical History: Procedure Laterality Date ??? ACL RECONSTRUCTION ??? BONE MARROW BIOPSY ??? BRONCHIAL ALVEOLAR LAVAGE (BAL) N/A 03/06/2020 N/A; BRONCHOSCOPY BRONCHIAL LAVAGE ??? COLONOSCOPY WITH POLYPECTOMY ??? Knee Arthroscopy Right 2018 with hardware ??? Splenectomy N/A 08/17/2019 N/A; LAPAROSCOPIC SPLENECTOMY POSS OPEN ??? Tonsillectomy ??? VENOUS ACCESS DEVICE (PORT OR CATHETER) Right 2019 subclavian Family History Problem Relation Name Age of Onset ??? Sudden Father ??? Alcohol abuse Father ??? Diabetes - Type 2 Neg Hx Current Outpatient Medications Medication Sig Dispense Refill ??? acetaminophen (TYLENOL) 325 MG tablet Take 1 tablet by mouth every 4 hours as needed Maximum allowable Acetaminophen amount = 4 Grams (4000 mg) / 24 hours. (Patient not taking: Reported on 12/20/2021) ??? acyclovir (ZOVIRAX) 400 MG tablet TAKE 2 TABLETS BY MOUTH TWICE DAILY 360 tablet 3 ??? albuterol HFA (PROVENTIL;VENTOLIN;PROAIR) 108 (90 Base) MCG/ACT inhaler Inhale 2 puffs by mouthevery 4 hours ??? budesonide-formoterol (SYMBICORT) 160-4.5 MCG/ACT inhaler Inhale 2 (two) puffs by mouth 2 timesdaily 10.2 g 3 ??? clonazePAM (KLONOPIN) 1 MG tablet Take 1 (one) tablet by mouth at bedtime 30 tablet 0 ??? diclofenac sodium EC (VOLTAREN) 75 MG tablet TK 1 T PO BID PRF PAIN ??? escitalopram (LEXAPRO) 20 MG tablet TAKE 1 TABLET BY MOUTH EVERY DAY 30 tablet 11 ??? HYDROcodone-acetaminophen (NORCO) 5-325 MG tablet Take 1 tablet by mouth every 6 hours as needed for Pain ??? multivitamin daily tablet Take 1 tablet by mouth daily with food ??? penicillin V potassium (VEETIDS) 250 MG tablet Take 1 (one) tablet by mouth 2 times daily 60 tablet 11 ??? rOPINIRole (REQUIP) 0.25 MG tablet Take 1 (one) tablet by mouth at bedtime Reasons: Restless Leg Syndrome 90 tablet 3 ??? vitamin D3-cholecalciferol (CHOLECALCIFEROL) 25 MCG (1000 UNITS) tablet Take 2 (two) tablets bymouth once daily 180 tablet 3 No current facility-administered medications for this visit. Allergies Allergen Reactions ??? Adhesive Sensitivity Urticaria and Other Electrodes -- welps where stickers are Also, use paper tape Social History Socioeconomic History ??? Marital status: Spouse name: Not on file ??? Number of children: Not on file ??? Years of education: Not on file ??? Highest education level: Not on file Occupational History ??? Not on file Tobacco Use ??? Smoking status: Former Smoker Packs/day: 0.50 Types: Cigarettes Start date: 1983 Quit date: 2002 Years since quittin.4 ??? Smokeless tobacco: Former User Types: Chew Quit date: 2016 Vaping Use ??? Vaping Use: Some days ??? Start date: 08/04/2018 ??? Last attempt to quit: 10/12/2018 Substance and Sexual Activity ??? Alcohol use: Not Currently ??? Drug use: Not Currently Frequency: 21.0 times per week Types: Marijuana Comment: none in past month ??? Sexual activity: Not on file Other Topics Concern ??? 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 Social Determinants of Health Financial Resource Strain: Not on file Food Insecurity: Not on file Transportation Needs: Not on file Physical Activity: Not on file Stress: Not on file Social Connections: Not on file Intimate Partner Violence: Not on file Housing Stability: Not on file Review of Systems My standard 14-system review for patients with sleep complaints was undertaken. Please see the above. Please see the questionnaires. The patient further denies any significant or recent problems withsevere tinnitus, difficulty swallowing, abnormal taste or smell, unusual weight loss, change in voice, rash, chills, lymphadenopathy, bone joint or muscle redness and swelling, eye sores, mouth sores, changes in bowel habits, blood, melena, hematuria. Objective: BP 109/65 (BP SITE: LEFT ARM, BP POSITION: SITTING, BP CUFF SIZE: 12) Pulse 74 Ht 5' 8 (1.727 m) Wt 306 lb (138.8 kg) BMI 46.53 kg/m2 General: normal, appears reported age Integument: Visible integument is clear of significant lesions. Nails and hair are unremarkable. Eyes: Sclera and conjunctiva are clear. Fundal vessels with min increase in v:A; no bleeding on limited, non-dilated examination. Ears: normal pinnae Nose: Slightly deviated from midline. Visible nasal mucosa is normal. Oropharynx: Oropharyngeal mucosa is clear of significant lesions. The tongue extends in the mid-line. The posterior oropharynx is class 3. Neck: The neck is supple. There are no significant cervical or supraclavicular nodes. Thyroid: The thyroid is normal. Lung: Lungs are clear with some vesicular to the bases including forced expiration. Some Cardiovascular: Heart sounds are normal with a grade one systolic flow murmur heard best at the base. There are no appreciable carotid bruits. There is 1+ pretibial edema. Posterior tibial pulses noted 1+. Abdomen: The abdomen is soft, and without tenderness, masses, liver or spleen to deep or light palpation. Extremities: Extremities symmetric, normal muscle mass. Neuro: The patient is alert, oriented, and capable of rational thought. Extra- ocular movements are intact and without lid lag. Facial musculature seems symmetric. Facial sensation and hearing not formally tested. There is no tremor. Pupils equal, round, reactive to light with accommodation. Visual leyva grossly intact to confrontation. Tongue extends in midline. Proximal muscle strength fair. Deep tendon reflex with normal relaxation phase. Lab Review Lab results smartLinks are not currently available Lab results smartLinks are not currently available Lab results smartLinks are not currently available Lab results smartLinks are not currently available Lab results smartLinks are not currently available Lab results smartLinks are not currently available Links to laboratory results have broken with change in EHR platform. All interim results available were reviewed with the patient. Impressions and recommendations can be found at the beginning of this note. Total of 55 min historical review, exam, download of CPAP data, analysis, discussion, recommendations. See scanned material and instructions. documented in this encounter Plan of Treatment Upcoming Encounters Date Type Department Care Team (Late st Contact Info) Description 08/26/2024 11:00 AM REFRIGERATION MECHANIC HELPER Office Visit [facility] - Pulmonology [address] [place] [address], [place] [address] Andrew Francis MD [address] [place] [address] [address] DIV OF PULMONARY/[place] [address] documented as of this encounter Results * [place] POLYSOM 6/> YRS 4/> SHARAD (05/17/2022 8:16 AM CDT) Narrative Tacos Ramos MD - 05/17/2022 8:16 AM CDT Tacos Ramos MD ? 05/17/2022 ??8:19 AM [facility] Accredited by the [employer] [facility], First Floor [address] [place] [address] Telephone : [phone] ? Medical Records Patient Name: ??Marcello Guillen : ??1970 Date of Study: ??05/16/2022 Referring Physician: ??Ran Nuñez MD Type of Montage: ??Respiratory Scoring System: ??[facility] FULL NIGHT DIAGNOSTIC POLYSOMNOGRAM INTERPRETATION (05/16/2022) Procedure: The polysomnogram was performed with a histologist technologist in attendance. ??Central, occipital, and temporal [...] 3. ??Suggest dental evaluation for bruxism Tacos Moncada ??MD Richard, MSP, [facility], [facility] Quality Assurance Associate, [facility] Professor of Internal Medicine Adjunct Portfolio Manager of Neurology Division of Pulmonary, Critical Care, and Sleep Medicine [facility] This note was electronically signed on 05/17/2022. CC: ??No referring provider defined for this encounter. Ran Nuñez MD Adarsh Garcia MD PROCEDURE/MINOR SURG ICAL ORDERABLES documented in this encounter Visit Diagnoses Diagnosis LISSA (obstructive sleep apnea)- Primary Obstructive sleep apnea (adult) (pediatric) COVID-19 with pulmonary comorbidity Sleep related hypoxia Idiopathic sleep related nonobstructive alveolar hypoventilation Intolerance of continuous positive airway pressure (CPAP) ventilation Comorbid sleep-related hypoventilation Periodic limb movement disorder (PLMD) Periodic limb movement disorder Hypersomnia due to medical condition Hypersomnia, unspecified Restless legs syndrome (RLS) documented in this encounter Care Teams Utilities Operator Relationship Specialty Start Date End Date Ran Nuñez MD [address] [place] [address] PCP - General Family Medicine 08/30/21 Hillary Apple MD [address] [place] [address] Hematology and Oncology 03/17/19 Tony Dumont MD [address] [place] [address] Hematology and Oncology 03/17/19 Maryjo Reinoso, PROCESS CHEMIST Clinical Nurse Reviewer 03/17/19 Madyson Clay, PharmD 03/17/19 Dana Lala APRN-INFORMATICS ANALYST [address] [place] [address] Oncology 03/17/19 Tiffanie Nguyen APRN-MARINE DESIGNER [address] [facility] 2nd [place] [address] Family Medicine 03/17/19 Cesar Tavares MD [address] [place] [address] Referring Physician Medical Oncology 03/23/19 Joy Bob 09/22/19 Tony Dumont MD [address] [place] [id number] Hematology and Oncology 10/30/21 Shalini Segal MD [address] [facility] [place] [address] Public Administration Professor/Oncologist Hematology and Oncology 10/30/21 Stefanie Burns, ROSEMARY Registered Nurse 10/30/21 Fatemeh Bolaños, RN Registered Nurse 10/30/21 documented as of this encounter
--- OUTSIDE RECORDS SUMMARY | 2024-08-18 00:21 | XMS_ITS | Encounter Summary ---
Author Organization [facility] Address [address] [place] [address] Care Team Providers Care Pulper Tender Name Role Phone Hillary Apple MD Unavailable [phone] Tony Dumont MD Unavailable Maryjo ReinosoW Unavailable Unavailable Madyson Clay PharmD Unavailable Unavaila Dana Galicia CLINICAL BUSINESS ANALYST-CHIEF CUSTOMER OFFICER Unavailable [phone] Tiffanie Nguyen CLINICAL BUSINESS ANALYST-RIGGING MAN Unavailable [phone] Cesar Tavares MD Unavailable [phone] Joy Bob Unavailable Fanta Ran Augustine MD Primary Care Provider Tony Dumont MD Unavailable Shalini Segal MD Unavailable Stefanie Burns RN Unavailable UnavailFatemeh Briones RN Unavailable Unavailable Reason for Visit * Reason Onset Date Comments MEDICATION REFILL 01/17/2023 Encounter Details Date Type Department Care Team (Late st Contact Info) Description 01/17/2023 Refill [facility] - Pulmonology [address] [place] [address], [place] [id number] Andrew Francis MD [address] [place] [address] 2L DIV OF PULMONARY/[place] [address] MEDICATION REFILL Social History Tobacco Use Types [...] Telephone Encounter - Thea Lanza RN - 01/17/2023 2:53 PM CDT Refill Request Marcello Guillen CARMELO: 12/20/21 NOV scheduled: 07/03/2023 LRF: 10/25/22 Allergies: Allergies Allergen Reactions ??? Adhesive Sensitivity Urticaria and Other Electrodes -- welps where stickers are Also, use paper tape Pended Medication Order: Requested Prescriptions Pending Prescriptions Disp Refills ??? albuterol HFA (Ventolin HFA) 108 (90 Base) MCG/ACT inhaler 54 g 4 Sig: Inhale 2 (two) puffs by mouth every 4 hours as needed ??? Symbicort 160-4.5 MCG/ACT inhaler 10.2 g 0 Sig: Inhale 2 (two) puffs by mouth 2 times daily INHALE 2 PUFFS BY MOUTH TWICE DAILY documented in this encounter Plan of Treatment Upcoming Encounters Date Type Department Care Team (Late st Contact Info) Description 08/26/2024 11:00 AM OD GRINDER OPERATOR Office Visit [facility] - Pulmonology [address] [place] [address], [place] [address] Andrew Francis MD [address] [place] [address] 2L DIV OF PULMONARY/[place] [address] documented as of this encounter Visit Diagnoses Not on filedocumented in this encounter Care Teams Pulper Tender Relationship Specialty Start Date End Date Ran Nuñez MD [address] [place] [phone] PCP - General Family Medicine 08/30/21 Hillary Apple MD [address] [place] [address] Hematology and Oncology 03/17/19 Tony Dumont MD [address] [place] [address] Hematology and Oncology 03/17/19 Maryjo Reinoso, SENIOR JAVA DATA ARCHITECT Vice President Quality 03/17/19 Madyson Clay, PharmD 03/17/19 Dana Lala, CLINICAL BUSINESS ANALYST-CHIEF CUSTOMER OFFICER [address] [place], [place] [address]TA [address] 2nd [place] [address] Oncology 03/17/19 Tiffanie Nguyen, CLINICAL BUSINESS ANALYST-RIGGING MAN [address] [place], [place] [address]TA [facility] 2nd [place] [address] Family Medicine 03/17/19 Cesar Tavares MD [address] [place], [place] [address]TA [facility] 2nd [place] [address] Referring Physician Medical Oncology 03/23/19 QuincyJoy Bedolla Giovanna 09/22/19 Tony Dumont MD [address] [place] [address] Hematology and Oncology 10/30/21 Shalini Segal MD [address] [facility] OF HEMATOLOGY & [place] [address] Special Ed Assistant/Oncologist Hematology and Oncology 10/30/21 Stefanie Burns, RN Registered Nurse 10/30/21 Fatemeh Bolaños, RN Registered Nurse 10/30/21 documented as of this encounter
--- OUTSIDE RECORDS SUMMARY | 2024-08-18 00:21 | XMS_ITS | Encounter Summary ---
Author Organization [facility] Address [address] [facility] [place] [address] Care Team Providers Care Director Graphics Name Role Phone Hillary Apple MD Unavailable [phone] Tony Dumont MD Unavailable [phone] Maryjo Reinoso LCSW Unavailable Unavailable Madyson Clay PharmD Unavailable Unavaila Dana Galicia ROLE PLAYER-SYNCHRONIZER Unavailable [phone] Tiffanie Nguyen ROLE PLAYER-MEDICAL AND SCIENTIFIC ILLUSTRATOR Unavailable Cesar Tavares MD Unavailable [phone] Joy Bob Unavailable Fanta Ran Augustine MD Primary Care Provider Tony Dumont MD Unavailable [phone] Shalini Segal MD Unavailable [phone] Stefanie Burns RN Unavailable UnavailFatemeh Briones RN Unavailable Unavailable Encounter Details Date Type Department Care Team (Latest Contact Info) Description 06/30/2022 Travel Social History Tobacco Use Types Packs/Day [...] suspected to have Coronavirus/COVID-19? No / Unsure 06/30/2022 4:57 PM VESSEL CAPTAIN documented as of this encounter Functional Status [...] st Contact Info) Description 08/26/2024 11:00 AM VESSEL CAPTAIN Office Visit [facility] - Pulmonology [address] [place] [address], [place] [address] Andrew Francis MD [address] [place] [address] 2L DIV OF PULMONARY/[place] [address] documented as of this encounter Visit Diagnoses Not on filedocumented in this encounter Care Teams Director Graphics Relationship Specialty Start Date End Date Ran Nuñez MD [address] [place] [address] PCP - General Family Medicine 08/30/21 Hillary Apple MD [address] [place] [address] Hematology and Oncology 03/17/19 Tony Dumont MD [address] [place] [address] Hematology and Oncology 03/17/19 Maryjo Reinoso, REYNA Safe Deposit Box Rental Clerk 03/17/19 Madyson Clay, PharmD 03/17/19 Dana Lala, ROLE PLAYER-SYNCHRONIZER [address] [facility] 2nd [place] [address] Oncology 03/17/19 Tiffanie Nguyen, ROLE PLAYER-MEDICAL AND SCIENTIFIC ILLUSTRATOR [address] [facility] 2nd [place] [address] Family Medicine 03/17/19 Cesar Tavares MD [address] [facility] 2nd [place] [address] Referring Physician Medical Oncology 03/23/19 Joy Bob 09/22/19 Tony Dumont MD [address] [place] [address] Hematology and Oncology 10/30/21 Shalini Segal MD [facility] [address] [facility] OF HEMATOLOGY & [place] [address] Hands Hanger/Oncologist Hematology and Oncology 10/30/21 Stefanie Burns, RN Registered Nurse 10/30/21 Fatemeh Bolaños, RN Registered Nurse 10/30/21 documented as of this encounter
--- OUTSIDE RECORDS SUMMARY | 2024-08-18 00:21 | XMS_ITS | Encounter Summary ---
Author Organization [facility] Address [address] [place] [address] Care Team Providers Care Rubber Curer Name Role Phone Hillary Apple MD Unavailable [phone] Tony Dumont MD Unavailable Maryjo ReinosoW Unavailable Unavailable Madyson Clay PharmD Unavailable Unavaila Dana Galicia MAJOR SALES ASSOCIATE-ANESTHESIOLOGIST ASSISTANT CERTIFIED Unavailable [phone] Tiffanie Nguyen MAJOR SALES ASSOCIATE-BARBER INSTRUCTOR Unavailable Cesar Tavares MD Unavailable [phone] Joy Bob Unavailable Fanta Ran Augustine MD Primary Care Provider Tony Dumont MD Unavailable [phone] Shalini Segal MD Unavailable Stefanie Burns RN Unavailable UnavailFatemeh Briones RN Unavailable Unavailable Reason for Visit * Reason Comments Refill Request Encounter Details Date Type Department Care Team (Late st Contact Info) Description 03/27/2022 Refill [facility] Pulmonary, Critical Care and Sleep Medicine [address] [facility], [place] [id number] Andrew Francis MD [address] [facility] 2L DIV OF PULMONARY/[place] [address] Refill Request Social History Tobacco Use Types [...] encounter Miscellaneous Notes * Telephone Encounter - Korey Mercado - 03/27/2022 9:14 AM CDT Requesting 90 day supply NOV:03/28/22 CARMELO:11/22/21 RTC in 3 months Medication/Ointment: budesonide-formoterol (Symbicort) 160-4.5 MCG/ACT inhaler Disp Qty: 10.5g changed to 30.6g Refills Remainin Korey Mercado MA documented in this encounter Plan of Treatment Upcoming Encounters Date Type Department Care Team (Late st Contact Info) Description 08/26/2024 11:00 AM WRITING MANAGER Office Visit [facility] - Pulmonology [address] [place] [address], [place] [address] Andrew Francis MD [address] [place] [address] 2L DIV OF PULMONARY/[place] [address] documented as of this encounter Visit Diagnoses Not on filedocumented in this encounter Care Teams Rubber Curer Relationship Specialty Start Date End Date Ran Nuñez MD [address] [place] [phone] PCP - General Family Medicine 08/30/21 Hillary Apple MD [address] [place] [address] Hematology and Oncology 03/17/19 Tony Dumont MD [facility] [place] [address] Hematology and Oncology 03/17/19 Maryjo Reinoso, [facility] Web Analytics Developer 03/17/19 Madyson Clay, PharmD 03/17/19 Dana Lala MAJOR SALES ASSOCIATE-ANESTHESIOLOGIST ASSISTANT CERTIFIED [address] [facility] 2nd [place] [address] Oncology 03/17/19 Tiffanie Nguyen, MAJOR SALES ASSOCIATE-BARBER INSTRUCTOR [address] [facility] 2nd [place] [address] Family Medicine 03/17/19 Cesar Tavares MD [address] [facility] 2nd [place] [address] Referring Physician Medical Oncology 03/23/19 Joy Bob 09/22/19 Tony Dumont MD [address] [place] [address] Hematology and Oncology 10/30/21 Shalini Segal MD [address] [place] [address] OF HEMATOLOGY & [place] [address] Screener And Blender/Oncologist Hematology and Oncology 10/30/21 Stefanie Burns, RN Registered Nurse 10/30/21 Fatemeh Bolaños, RN Registered Nurse 10/30/21 documented as of this encounter
--- OUTSIDE RECORDS SUMMARY | 2024-08-18 00:21 | XMS_ITS | Encounter Summary ---
Author Organization [facility] Address [address] [facility] [place] [address] Care Team Providers Care Paintless Dent Repair Technician Name Role Phone Hillary Apple MD Unavailable [phone] Tony Dumont MD Unavailable Maryjo ReinosoW Unavailable Unavailable Madyson Clay PharmD Unavailable Unavaila Dana Galicia PEST CONTROL WORKER HELPER-SPEAKER WIRER Unavailable [phone] Tiffanie Nguyen PEST CONTROL WORKER HELPER-LAST SCOURER Unavailable [phone] Cesar Tavares MD Unavailable [phone] Joy Bob Unavailable Fanta Ran Augustine MD Primary Care Provider Tony Dumont MD Unavailable [phone] Shalini Segal MD Unavailable Stefanie Burns RN Unavailable UnavailFatemeh Briones RN Unavailable Unavailable Reason for Referral * Procedure (Routine) - Closed Specialty Diagnoses / Procedures Referred By Contac t Referred To Contact Pulmonary Disease Diagnoses Hypoxemia Procedures Complete PFT w/wo Bronchodilator [facility] PFT Lab Andrew Francis MD [address] [facility] 2L DIV OF PULMONARY/[place] [address] [facility] [address] [place] [address] Referral ID Status Reason Start Date Expiration Date Visits Re quested Visits Authorized [id number] Closed 12/19/2022 12/19/2023 1 1 Encounter Details Date Type Department Care Team (Late st Contact Info) Description 12/19/2022 10:30 AM CDT Office Visit [facility] - Pulmonology [address] [place] [address], [place] [id number] Andrew Francis MD [address] [place] [address] 2L DIV OF PULMONARY/[place] [address] Post-acute sequelae of COVID-19 (PASC) (Primary Dx); Hypoxemia; Moderate persistent asthma without complication (HCC) Social History Tobacco Use Types Packs/Day Years [...] Recorded In the last 10 days, have yo u been in contact with someone who was confirmed or suspected to have Coronavirus/COVID-19? No / Unsure 12/02/2022 4:09 PM CDT documented as of this encounter Last Filed Vital Signs Vital Sign Reading Time Taken Comments Blood Pressure 124/77 12/19/2022 10:29 AM CDT Pulse 77 12/19/2022 10:29 AM CDT Temperature - - Respiratory Rate 22 12/19/2022 10:29 AM CDT Oxygen Saturation 92% 12/19/2022 10:29 AM CDT Inhaled Oxygen Concentration - - Weight 128.8 kg (284 lb) 12/19/2022 10:29 AM CDT Height 172.7 cm (5' 8 ) 12/19/2022 10:29 AM CDT Body Mass Index 43.18 12/19/2022 10:29 AM CDT documented in this encounter Functional [...] this encounter Patient Instructions * Patient Instructions* Brijesh Mendez DO - 12/19/2022 11:18 AM CDT No need to wear oxygen during the day. Until your receive your BPAP, wear 5 L/min oxygen via nasal cannula at night. We will obtain the following tests: Pulmonary function testing Continue the following inhaled medications: Albuterol MDI 1-2 puffs every 4-6 hours as needed Symbicort 160-4.5 2 puffs twice daily (rinse mouth/brush teeth after use) We will see you back in clinic in 6 months or sooner as needed. If earlier appointment is needed, please call the pulmonary clinic at [phone] (fax [phone]) documented in this encounter Progress Notes * Brijesh Mendez DO - 12/19/2022 10:28 AM CDT Patient's Name: Marcello Guillen Date of : 1970 Date of Visit: 12/19/2022 PULMONARY CLINIC NOTE ? Assessment/Plan: ??? Moderate persistent asthma, not in acute exacerbation ??? 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 Chronic hypoxemic respiratory failure, likely secondary to above ??? History of tobacco use and marijuana use ??? NHL s/p SCT, R-CHOP, splenectomy ??? LISSA, currently prescribed BPAP and nocturnal oxygen ??? Obesity, BMI 43 Plan: ??? Patient to continue using nocturnal oxygen as prescribed by Dr. Ramos (5 L/min bleed-in/sideflow). No need for ambulatory oxygen use per oxygen desaturation study in 2021. ??? Obtain the following tests: o Complete PFTs ??? Continue the following inhaled medications: o Albuterol MDI 2 puffs every 4-6 hours as needed o Symbicort 160-4.5 2 puffs twice daily (rinse mouth/brush teeth after use) Return to clinic in 6 months or sooner as needed. This plan was discussed with attending, Dr. Tito Mendez DO, PGY-6 Pulmonary & Critical Care Fellow Subjective: HPI This is a pleasant 52 year old male with a past medical history of asthma, former tobacco use (smoked for approximately 10 years, quit in 2021), history of marijuana use, NHL s/p autologous SCT (October 2019) s/p splenectomy, history of COVID-19 pneumonia with prolonged hospitalization (02/2020 through 04/2020). The patient was last seen in clinic by Drs. Nance and Tito in November 2021. At that time, the patient was sent for repeat echo and referred to [facility] [place] for LISSA. Since his last visit: - seen by surgical oncology 11/28/21 for incisional hernia, deferred surgical intervention at that time - seen at [facility] [place] [place] by Dr. Garcia in November and Dr. Ramos in May, eventually started on PAP therapy - seen at in Jun 2022, treated with prednisone + Tessalon perles + Augmentin for presumed LRTI - repeat sleep study in November 2022 with BPAP titration done with 5 L/m side flow Patient wearing oxygen while walking. if he's walking the neighborhood, he wears 2-3 L/min. It's currently off. His walking decreased has decreased predominantly due to weakness. He hasn't fully recovered. He ismostly sedentary but does work around in his garage fixing his truck. For about a month the patient was without his Symbicort and noticed a big difference while off. He was able to restart his inhaler. Current respiratory meds: ??? Albuterol 2 puffs every 4 hours as needed ??? Symbicort 160-4.5 mcg 2 puffs twice daily. Healthcare utilization: ??? [] oral corticosteroid use ?? [] antibiotic use ??? [] hospitalizations in last 12 months ??? [] intubations Current systemic symptoms: ??? [] fever ??? [] chills ??? [] night sweats ??? [] unintentional weight loss ??? [] chest tightness No flowsheet data found. No flowsheet data found. HOME MEDICATIONS: Current Outpatient Medications on File Prior to Visit Medication Sig Dispense Refill ??? acetaminophen (TYLENOL) 325 MG tablet Take 1 tablet by mouth every 4 hours as needed Maximum allowable Acetaminophen amount = 4 Grams (4000 mg) / 24 hours. ??? acyclovir (ZOVIRAX) 400 MG tablet TAKE 2 TABLETS BY MOUTH TWICE DAILY 360 tablet 3 ??? albuterol HFA (PROVENTIL;VENTOLIN;PROAIR) 108 (90 Base) MCG/ACT inhaler Inhale 2 puffs by mouthevery 4 hours ??? benzonatate (Tessalon) 200 MG capsule Take 1 (one) capsule by mouth 3 times daily as needed forCough 30 capsule 0 ??? clonazePAM (KLONOPIN) 1 MG tablet Take 1 (one) tablet by mouth at bedtime 30 tablet 0 ??? escitalopram (LEXAPRO) 20 MG tablet TAKE [...] Restless Leg Syndrome 90 tablet 3 ??? Symbicort 160-4.5 MCG/ACT inhaler No current facility-administered medications on file prior to visit. REVIEW OF SYSTEMS Negative unless mentioned in HPI. PAST MEDICAL HISTORY: He has a past medical history of Acute respiratory failure with hypoxia ([facility]/HCC), Asthma (12/03/2017), B-cell lymphoma ([facility]/HCC) (04/18/2017), Back pain (12/24/2021), COVID-19 withpulmonary comorbidity (12/20/2021), Diverticulosis, DLBCL (diffuse large B cell lymphoma) ([facility]) ( 05/24/2019), Fever (02/25/2020), GERD (gastroesophageal reflux disease), Ground glass opacity present on imaging of lung, H/O echocardiogram (08/11/2019), History of marijuana use (06/28/2019), History of nephrolithiasis (12/24/2021), Hypersomnia due to medical condition (12/24/2021), Hypoxemia (02/19/2021), Lymphadenopathy (04/11/2017), Lymphoma of lymph nodes ([facility]), Multiple body piercings, LISSA (obstructive sleep apnea) (12/24/2021), Periodic limb movement disorder (PLMD) (12/24/2021), Pneumonia due to COVID-19 virus, Port-A-Cath in place, Restless legs syndrome (RLS) (12/24/2021), S/P splenectomy (09/09/2019), Sleep apnea, Status post autologous bone marrow transplant ([facility]) (03/05/2020), Stemcells transplant status ([facility]), and Transient alteration of awareness (2017). PAST SURGICAL HISTORY: His has a past surgical history that includes acl reconstruction; venous access device (port or catheter) (Right, 2019); knee arthroscopy (Right, 2018); tonsillectomy; colonoscopy with polypectomy; bone marrow biopsy; splenectomy (N/A, 08/17/2019); and bronchial alveolar lavage (bal) (N/A, 03/06/2020). FAMILY HISTORY: His family history includes Alcohol abuse in his father; Sudden in his father. He He indicated that his father is . He indicated that the status of his neg hx is unknown. SOCIAL HISTORY: He reports that he quit smoking about 21 years ago. His smoking use included cigarettes. He started smoking about 39 years ago. He smoked an average of .5 packs per day. He quit smokeless tobacco use about 6 years ago. His smokeless tobacco use included chew. He reports that he doesnot currently use alcohol. He reports that he does not currently use drugs after having used the following drugs: Marijuana. Frequency: 21.00 times per week. ALLERGIES: Allergies Allergen Reactions ??? Adhesive Sensitivity Urticaria and Other Electrodes -- welps where stickers are Also, use paper tape Objective: PHYSICAL EXAM: BP 124/77 Pulse 77 Resp 22 Ht 1.727 m (5' 8 ) Wt 128.8 kg (284 lb) SpO2 92% GEN No acute distress, on room air, well nourished, well developed. HEENT NCAT, EOMI. Sclera anicteric. Oropharynx with no erythema/exudates. CHEST No chest wall tenderness CARDIO RRR, no M/R/G, +S1/S2 RESP Minor wheezes/squaks noted in bilateral posterior leyva. ABD Soft, NT, ND, +BS. EXT No clubbing, cyanosis or edema. NEURO Alert, oriented, and appropriately interactive. Moving all extremities. CN 2-12 grossly intact. No focal deficits noted SKIN Warm, dry, no rashes/lesions noted on exposed skin. PSYCH Appropriate mood and affect DATA: I have personally reviewed available labs, imaging, and pulmonary function testing. CT chest abdomen pelvis w/o contrast (08/30/2021): 1.Interval improvement in persistent reticulation, cystic changes and bronchiectasis with mild volume loss bilaterally, representing sequela of Covid pneumonia. 2.Left-sided nonobstructing nephrolithiasis with no evidence of hydronephrosis. 3.Sigmoid colonic diverticulosis without evidence of diverticulitis. O2 desaturation study (11/13/2021): no desats PFTS (11/13/2021): nonspecific ventilatory limitation, decreased DLCO 2-D ECHO (02/22/2022): normal LV, normal wall motion, normal RV systolic function, no valve abnormalities. Suboptimal/difficult Associated attestation - Andrew Francis MD - 12/23/2022 1:46 PM CDT The patient is doing well on Symbicort. He is using oxygen prn although previous testing indicates that he does not need to. He does remain on 5 L/min at night with biPAP per Dr. Ramos. At this time, I will have him repeat PFTs and f/u with me in approximately 6 months. I have seen, examined and discussed the patient with the fellow and I agree with the the findings and plan of care/recommendations as documented by the fellow. Date of service: 12/19/22 Andrew Francis M.D. Parts Cataloger of Internal Medicine Division of Pulmonary, Critical Care and Sleep Medicine [facility] documented in this encounter Plan of Treatment Upcoming Encounters Date Type Department Care Team (Late st Contact Info) Description 08/26/2024 11:00 AM AUTO BODY DETAILER Office Visit [facility] - Pulmonology [address] [place] [address], [place] [address] Andrew Francis MD [address] [place] [address] OF PULMONARY/[place] [address] documented as of this encounter Results * Complete PFT w/wo Bronchodilator [facility] PFT Lab (10/24/2023 4:08 PM CDT) Impressions Patrick Arita MD - 10/24/2023 4:08 PM CDT [facility] DEPARTMENT OF PULMONARY, CRITICAL CARE, AND [...] of Pulmonary, Critical Care and Sleep Medicine [facility] I have reviewed the above study and agree with the interpretation as listed above. Patrick Arita MD Fixed Interest Dealer of Pulmonary & Critical Care Medicine [facility] Pager [phone] Narrative Patrick Arita MD - 10/24/2023 4:08 PM CDT Ted Ibanez MD ? 10/24/2023 ??4:21 PM Andrew Francis MD RESPIRATORY THERAPY ORDERABLES documented in this encounter Visit Diagnoses Diagnosis Post-acute sequelae of COVID-19 (PASC)- Primary Hypoxemia Moderate persistent asthma without complication (HCC) Unspecified asthma Hypoxemia documented in this encounter Care Teams Paintless Dent Repair Technician Relationship Specialty Start Date End Date Ran Nuñez MD [address] [place] [address] PCP - General Family Medicine 08/30/21 Hillary Apple MD [address] [place] [address] Hematology and Oncology 03/17/19 Tony Dumont MD [address] [place] [address] Hematology and Oncology 03/17/19 Maryjo Reinoso, DITCH DIGGER Business Division Chair 03/17/19 Madyson Clay, PharmD 03/17/19 Dana Lala, PEST CONTROL WORKER HELPER-SPEAKER WIRER [address] 2[address] [place] [address] Oncology 03/17/19 Tiffanie Nguyen, PEST CONTROL WORKER HELPER-LAST SCOURER [address] 2[address] [place] [address] Family Medicine 03/17/19 Cesar Tavares MD [address] 2nd [place] [address] Referring Physician Medical Oncology 03/23/19 Joy Bob 09/22/19 Tony Dumont MD [address] [place] [address] Hematology and Oncology 10/30/21 Shalini Segal MD [address] [facility] [place] [address] Glass Blower Helper/Oncologist Hematology and Oncology 10/30/21 Stefanie Burns, RN Registered Nurse 10/30/21 Fatemeh Bolaños, RN Registered Nurse 10/30/21 documented as of this encounter
--- OUTSIDE RECORDS SUMMARY | 2024-08-18 00:21 | XMS_ITS | Encounter Summary ---
Author Organization [facility] Address [address] [facility] [place] [address] Care Team Providers Care Hospice Social Worker Name Role Phone Hillary Apple MD Unavailable [phone] Tony Dumont MD Unavailable [phone] Maryjo ReinosoW Unavailable Unavailable Madyson Clay PharmD Unavailable Unavaila Dana Galicia MACHINE WORKER-RN PSYCH Unavailable [phone] Tiffanie Nguyen MACHINE WORKER-INVESTIGATIVE RESEARCH SPECIALIST Unavailable [phone] Cesar Tavares MD Unavailable [phone] Joy Bob Unavailable Fanta Ran Augustine MD Primary Care Provider Tony Dumont MD Unavailable [phone] Shalini Segal MD Unavailable [phone] Stefanie Burns RN Unavailable UnavailFatemeh Briones RN Unavailable Unavailable Encounter Details Date Type Department Care Team (Late st Contact Info) Description 12/04/2021 Telephone [facility] CL[facility] [address] [place] [address] Stefanie Burns, RN Social History [...] Encounter - Stefanie Burns RN - 12/04/2021 2:46 PM CDT Patient returned previous call. Scheduled titer appt for 12/20 to fall prior to his sleep medicine appt that day. documented in this encounter Plan of Treatment Upcoming Encounters Date Type Department Care Team (Late st Contact Info) Description 08/26/2024 11:00 AM SOFTWARE ENGINEER DEVELOPER Office Visit [facility] - Pulmonology [address] [place] [address], [place] [address] Andrew Francis MD [address] [place] [address] 2L DIV OF PULMONARY/[place] [address] documented as of this encounter Visit Diagnoses Not on filedocumented in this encounter Care Teams Hospice Social Worker Relationship Specialty Start Date End Date Ran Nuñez MD [address] [place] [address] PCP - General Family Medicine 08/30/21 Hillary Apple MD [address] [place] [address] Hematology and Oncology 03/17/19 Tony Dumont MD [address] [place] [address] Hematology and Oncology 03/17/19 Maryjo Reinoso, CARBURIZER Betting Agency Manager 03/17/19 Madyson Clay, PharmD 03/17/19 Dana Lala, MACHINE WORKER-RN PSYCH [address] [place] [address] Oncology 03/17/19 Tiffanie Nguyen, MACHINE WORKER-INVESTIGATIVE RESEARCH SPECIALIST [address] [facility] [address] [place] [address] Family Medicine 03/17/19 Cesar Tavares MD [address] [facility] 2nd [place] [address] Referring Physician Medical Oncology 03/23/19 Joy Bob 09/22/19 Tony Dumont MD [address] [place] [id number] Hematology and Oncology 10/30/21 Shalini Segal MD [facility] [facility] OF HEMATOLOGY & [place] [address] Vocational Rehabilitation Consultant/Oncologist Hematology and Oncology 10/30/21 Stefanie Burns, RN Registered Nurse 10/30/21 Fatemeh Bolaños, RN Registered Nurse 10/30/21 documented as of this encounter
--- OUTSIDE RECORDS SUMMARY | 2024-08-18 00:21 | XMS_ITS | Encounter Summary ---
Author Organization [facility] Address [address] [place] [address] Care Team Providers Care Silo Filler Name Role Phone Hillary Apple MD Unavailable [phone] Tony Dumont MD Unavailable [phone] Maryjo ReinosoW Unavailable Unavailable Madyson Clay PharmD Unavailable Unavaila Dana Galicia FIELD SERVICE REPRESENTATIVE-AGRICULTURAL EQUIPMENT MECHANIC Unavailable [phone] Tiffanie Nguyen FIELD SERVICE REPRESENTATIVE-CEMENT RAILROAD CAR LOADER Unavailable [phone] Cesar Tavares MD Unavailable [phone] Joy Bob Unavailable Fanta Ran Augustine MD Primary Care Provider Tony Dumont MD Unavailable [phone] Shalini Segal MD Unavailable [phone] Stefanie Burns RN Unavailable UnavailFatemeh Briones RN Unavailable Unavailable Reason for Referral * Procedure (Routine) - Closed Specialty Diagnoses / Procedures Referred By Contjohn t Referred To Contact Sleep Center Diagnoses LISSA (obstructive sleep apnea) Sleep related hypoxia Procedures PROC POLYSOMNOGRAPHY,THERAPEUT IC FULL NIGHT Tacos Ramos MD [address] [facility] 1ST [place] [address] Aff Michelleu Lynette [address] [place] [address] Referral ID Status Reason Start Date Expiration Date Visits Re quested Visits Authorized [id number] Closed 05/17/2022 05/17/2023 1 1 Reason for Visit * Procedure [...] PROC POLYSOMNOGRAPHY, SPLIT NIGHT Adarsh Garcia MD [address] [address] Aff [facility] [address] [place] [address] Referral ID Status Reason Start Date Expiration Date Visits Re quested Visits Authorized [id number] Closed 12/20/2021 12/20/2022 1 1 Encounter Details Date Type Department Care Team (Latest Contact Info) Description 05/16/2022 8:00 PM CDT Procedure visit [facility] [place] [address] [place] [address] LISSA (obstructive sleep apnea) ; Sleep related hypoxia Social History Tobacco Use Types Packs/Day Years [...] as of this encounter Progress Notes * Tacos Ramos MD - 05/17/2022 8:10 AM CDT [facility] Accredited by the [employer] [facility], First Floor [address] [place] [address] Telephone : [phone] Medical Records Patient Name: Marecllo Guillen : 1970 Date of Study: 05/16/2022 Referring Physician: Ran Nuñez MD Type of Montage: Respiratory Scoring System: [facility] FULL NIGHT DIAGNOSTIC POLYSOMNOGRAM INTERPRETATION (05/16/2022) Procedure: The polysomnogram was performed with a electronic technologist in attendance. Central, occipital, and temporal EEG, EOG, submentalis, EMG, nasal thermistor, nasal pressure, thoracoabdominal motion, anterior tibialis EMG, snore sensor, and pulse oximetry were monitored. Sleep stages, periodic limb movements, and EEG arousals were scored in 30-second epochs according to the AASM Scoring Manual. Apnea-hypopnea index was calculated using the recommended definition of hypopnea for scoring events. Data acquisition, collection, and scoring have been validated and clinically correlated. Sleep History: Mr. Marcello Guillen, a 52 year old male, was referred to the [facility] Disorders [facility] by Ran Nuñez MD for the evaluation of suspected obstructive sleep apnea (LISSA). Current Outpatient Medications: ??? acetaminophen (TYLENOL) 325 MG tablet, Take 1 tablet by mouth every 4 hours as needed Maximum allowable Acetaminophen amount = 4 Grams (4000 mg) / 24 hours. (Patient not taking: Reported on 12/20/2021), Disp: , Rfl: ??? acyclovir (ZOVIRAX) 400 MG tablet, TAKE 2 TABLETS BY MOUTH TWICE DAILY, Disp: 360 tablet, Rfl: 3 ??? albuterol HFA (PROVENTIL;VENTOLIN;PROAIR) 108 (90 Base) MCG/ACT inhaler, Inhale 2 puffs by mouth every 4 hours, Disp: , Rfl: ??? clonazePAM (KLONOPIN) 1 MG tablet, Take 1 (one) tablet by mouth at bedtime, Disp: 30 tablet, Rfl: 0 ??? diclofenac sodium EC (VOLTAREN) 75 MG tablet, TK 1 T PO BID PRF PAIN, Disp: , Rfl: ??? escitalopram (LEXAPRO) 20 MG tablet, TAKE 1 TABLET BY MOUTH EVERY DAY, Disp: 30 tablet, Rfl: 11 ??? fluticasone-salmeterol (Advair Diskus) 500-50 MCG/ACT inhaler, Inhale 1 (one) puff by mouth 2 times daily, Disp: 1 Each, Rfl: 5 ??? HYDROcodone-acetaminophen (NORCO) 5-325 MG tablet, Take 1 tablet by mouth every 6 hours as needed for Pain, Disp: , Rfl: ??? multivitamin daily tablet, Take 1 tablet by mouth daily with food, Disp: , Rfl: ??? penicillin V potassium (VEETIDS) 250 MG tablet, Take 1 (one) tablet by mouth 2 times daily, Disp: 60 tablet, Rfl: 11 ??? rOPINIRole (REQUIP) 0.25 MG tablet, Take 1 (one) tablet by mouth at bedtime Reasons: Restless Leg Syndrome, Disp: 90 tablet, Rfl: 3 ??? sulfamethoxazole-trimethoprim (BACTRIM DS; SEPTRA DS) 800-160 MG tablet, TAKE 1 TABLET BY MOUTHEVERY FRIDAY, FRIDAY AND FRIDAY, Disp: 12 tablet, Rfl: 3 ??? vitamin D3-cholecalciferol (CHOLECALCIFEROL) 25 MCG (1000 UNITS) tablet, [...] stage N2: 59.8%; stage N3: 6.6%; stage REM:12.6%. Respiratory Analysis: The patient's overall apnea-hypopnea index (AHI) was increased at 10.8 per hour while the respiratory effort-related arousal index was decreased at 29.2 per hour. The overall respiratory disturbance index (RDI) was 40 per hour. The supine AHI was 11.6 per hour and the supine RERA index was 50.5 perhour. The lateral AHI was 10.2 per hour [...] The time spent with oxygen saturation less than90% was 262.5 minutes of the total diagnostic sleep time. Snoring Profile: Frequent, moderate snoring was detected during this study. Periodic Limb Movements: The patient's periodic limb movement index was within normal limits at 0 per hour. Brief episodes of phasic bruxism was noted during this diagnostic study. EEG Profile: The patient's total arousal index was elevated at 40.2 per hour. Virtually all of the arousals weredue to respiratory events. There was no epileptiform activity during sleep. Cardiac Profile: EKG showed normal sinus rhythm. No clinically significant arrhythmia was noted. Parasomnias: No parasomnia was observed during this diagnostic study. IMPRESSION: 1. Severe obstructive sleep apnea based on the respiratory disturbance index 2. Sleep-related hypoxemia; cannot rule out sleep-related hypoventilation as cause of hypoxemia since capnography was not performed. 3. Bruxism RECOMMENDATIONS: 1. Suggest in-laboratory therapeutic polysomnography with continuous positive airway pressure (CPAP) or bilevel positive airway pressure (BPAP) +/- oxygen side flow titration. 2. Evaluate for causes of sleep-related hypoxemia disorder (e.g., hypoventilation, ventilation-perfusion mismatch, deadspace, shunt, diffusion abnormality, etc.). 3. Suggest dental evaluation for bruxism Tacos Ramos MD, [facility], [facility], [facility] Control System Computer Scientist, [facility] Professor of Internal Medicine Adjunct Electro Mechanical Solar Technician of Neurology Division of Pulmonary, Critical Care, and Sleep Medicine [facility] This note was electronically signed on 05/17/2022. CC: No referring provider defined for this encounter. Ran Nuñez MD documented in this encounter Procedure Notes * Tacos Ramos MD - 05/17/2022 8:16 AM CDTAssociated Order(s): PROC POLYSOMNOGRAPHY, SPLIT NIGHT Procedure(s): LA POLYSOM 6/> YRS 4/> SHARAD Pre-Procedure Diagnose(s): COVID-19 with pulmonary comorbidity; LISSA (obstructive sleep apnea); Sleep related hypoxia; Intolerance of continuous positive airway pressure (CPAP) ventilation; Comorbid sleep-related hypoventilation; Periodic limb movement disorder (PLMD) Post-Procedure Diagnose(s): LISSA (obstructive sleep apnea); Sleep related hypoxia; Bruxism [facility] Accredited by the [employer] Medicine [facility], First Floor [address] [place] [address] Telephone : [phone] Medical Records Patient Name: Marcello Guillen : 1970 Date of Study: 05/16/2022 Referring Physician: Ran Nuñez MD Type of Montage: Respiratory Scoring System: [facility] FULL NIGHT DIAGNOSTIC POLYSOMNOGRAM INTERPRETATION (05/16/2022) Procedure: The polysomnogram was performed with a electronic technologist in attendance. Central, occipital, and temporal EEG, EOG, submentalis, EMG, nasal thermistor, nasal pressure, thoracoabdominal motion, anterior tibialis EMG, snore sensor, and pulse oximetry were monitored. Sleep stages, periodic limb movements, and EEG arousals were scored in 30-second epochs according to the AASM Scoring Manual. Apnea-hypopnea index was calculated using the recommended definition of hypopnea for scoring events. Data acquisition, collection, and scoring have been validated and clinically correlated. Sleep History: Mr. Marcello Guillen, a 52 year old male, was referred to the Sleep Disorders Clinic by Ran Nuñez MD for the evaluation of suspected obstructive sleep apnea (LISSA). Current Outpatient Medications: ??? acetaminophen (TYLENOL) 325 MG tablet, Take 1 tablet by mouth every 4 hours as needed Maximum allowable Acetaminophen amount = 4 Grams (4000 mg) / 24 hours. (Patient not taking: Reported on 12/20/2021), Disp: , Rfl: ??? acyclovir (ZOVIRAX) 400 MG tablet, TAKE 2 TABLETS BY MOUTH TWICE DAILY, Disp: 360 tablet, Rfl: 3 ??? albuterol HFA (PROVENTIL;VENTOLIN;PROAIR) 108 (90 Base) MCG/ACT inhaler, Inhale 2 puffs by mouth every 4 hours, Disp: , Rfl: ??? clonazePAM (KLONOPIN) 1 MG tablet, Take 1 (one) tablet by mouth at bedtime, Disp: 30 tablet, Rfl: 0 ??? diclofenac sodium EC (VOLTAREN) 75 MG tablet, TK 1 T PO BID PRF PAIN, Disp: , Rfl: ??? escitalopram (LEXAPRO) 20 MG tablet, TAKE 1 TABLET BY MOUTH EVERY DAY, Disp: 30 tablet, Rfl: 11 ??? fluticasone-salmeterol (Advair Diskus) 500-50 MCG/ACT inhaler, Inhale 1 (one) puff by mouth 2 times daily, Disp: 1 Each, Rfl: 5 ??? HYDROcodone-acetaminophen (NORCO) 5-325 MG tablet, Take 1 tablet by mouth every 6 hours as needed for Pain, Disp: , Rfl: ??? multivitamin daily tablet, Take 1 tablet by mouth daily with food, Disp: , Rfl: ??? penicillin V potassium (VEETIDS) 250 MG tablet, Take 1 (one) tablet by mouth 2 times daily, Disp: 60 tablet, Rfl: 11 ??? rOPINIRole (REQUIP) 0.25 MG tablet, Take 1 (one) tablet by mouth at bedtime Reasons: Restless Leg Syndrome, Disp: 90 tablet, Rfl: 3 ??? sulfamethoxazole-trimethoprim (BACTRIM DS; SEPTRA DS) 800-160 MG tablet, TAKE 1 TABLET BY MOUTHEVERY FRIDAY, FRIDAY AND FRIDAY, Disp: 12 tablet, Rfl: 3 ??? vitamin D3-cholecalciferol (CHOLECALCIFEROL) 25 MCG (1000 UNITS) tablet, [...] stage N2: 59.8%; stage N3: 6.6%; stage REM:12.6%. Respiratory Analysis: The patient's overall apnea-hypopnea index (AHI) was increased at 10.8 per hour while the respiratory effort-related arousal index was decreased at 29.2 per hour. The overall respiratory disturbance index (RDI) was 40 per hour. The supine AHI was 11.6 per hour and the supine RERA index was 50.5 perhour. The lateral AHI was 10.2 per hour [...] The time spent with oxygen saturation less than90% was 262.5 minutes of the total diagnostic sleep time. Snoring Profile: Frequent, moderate snoring was detected during this study. Periodic Limb Movements: The patient's periodic limb movement index was within normal limits at 0 per hour. Brief episodes of phasic bruxism was noted during this diagnostic study. EEG Profile: The patient's total arousal index was elevated at 40.2 per hour. Virtually all of the arousals weredue to respiratory events. There was no epileptiform activity during sleep. Cardiac Profile: EKG showed normal sinus rhythm. No clinically significant arrhythmia was noted. Parasomnias: No parasomnia was observed during this diagnostic study. IMPRESSION: 1. Severe obstructive sleep apnea based on the respiratory disturbance index 2. Sleep-related hypoxemia; cannot rule out sleep-related hypoventilation as cause of hypoxemia since capnography was not performed. 3. Bruxism RECOMMENDATIONS: 1. Suggest in-laboratory therapeutic polysomnography with continuous positive airway pressure (CPAP) or bilevel positive airway pressure (BPAP) +/- oxygen side flow titration. 2. Evaluate for causes of sleep-related hypoxemia disorder (e.g., hypoventilation, ventilation-perfusion mismatch, deadspace, shunt, diffusion abnormality, etc.). 3. Suggest dental evaluation for bruxism Tacos Ramos MD, [facility], [facility], [facility] Control System Computer Scientist, [facility] Professor of Internal Medicine Adjunct Electro Mechanical Solar Technician of Neurology Division of Pulmonary, Critical Care, and Sleep Medicine [facility] [employer] This note was electronically signed on 05/17/2022. CC: No referring provider defined for this encounter. Ran Nuñez MD documented in this encounter Plan of Treatment Upcoming Encounters Date Type Department Care Team (Late st Contact Info) Description 08/26/2024 11:00 AM MANAGER ENVIRONMENTAL HEALTH AND SAFETY Office Visit [facility] - Pulmonology [address] [place] [address], [place] [id number] Andrew Francis MD [address] [place] [address] DIV OF PULMONARY/[place] [address] documented as of this encounter Procedures Procedure Name Priority Date/Time Associated Diagnosis Comments LA POLYSOM 6/> YRS 4/> SHARAD Routine 05/17/2022 8:16 AM CDT COVID-19 with pulmonary comorbidity LISSA (obstructive sleep apnea) Sleep related hypoxia Intolerance of continuous positive airway pressure (CPAP) ventilation Comorbid sleep-related hypoventilation Periodic limb movement disorder (PLMD) documented in this encounter Results * LA POLYSOM 6/>YRS CPAP 4/> PARM (11/25/2022 3:44 PM CDT) Narrative Tacos Ramos MD - 11/25/2022 3:44 PM CDT Tacos Ramos MD ? 11/25/2022 ??3:51 PM [facility] Accredited by the [employer] [employer] Medicine [facility], First Floor [address] [place] [address] Telephone : [phone] ? Medical Records Patient Name: ??Marcello Guillen : ??1970 Date of Study: ??10/30/2022 Referring Physician: ??Tacos Ramos MD Type of Montage: ??Respiratory Scoring System: ??[facility] FULL NIGHT THERAPEUTIC POLYSOMNOGRAM INTERPRETATION (10/30/2022) Procedure: The polysomnogram was performed with a electronic technologist in attendance. ??Central, occipital, and temporal [...] diffusion abnormality, etc.). Tacos Gómez. ??MD Richard, [facility], [facility], [facility] Control System Computer Scientist, [facility] Professor of Internal Medicine Adjunct Electro Mechanical Solar Technician of Neurology Division of Pulmonary, Critical Care, and Sleep Medicine [facility] This note was electronically signed on 11/25/2022. CC: ??Tacos Ramos MD [address], ??[place] [address] Ran Nuñez MD Tacos Ramos MD PROCEDURE/MINOR PRIMO GICAL ORDERABLES documented in this encounter Visit Diagnoses Diagnosis LISSA (obstructive sleep apnea)- Primary Obstructive sleep apnea (adult) (pediatric) Sleep related hypoxia Idiopathic sleep related nonobstructive alveolar hypoventilation Obesity (BMI 30-39.9)- Primary Obesity, unspecified LISSA (obstructive sleep apnea) Obstructive sleep apnea (adult) (pediatric) Sleep related hypoxia Idiopathic sleep related nonobstructive alveolar hypoventilation documented in this encounter Care Teams Silo Filler Relationship Specialty Start Date End Date Ran Nuñez MD [address] [place] [address] PCP - General Family Medicine 08/30/21 Hillary Apple MD [address] [place] [address] Hematology and Oncology 03/17/19 Tony Dumont MD [address] [place] [address] Hematology and Oncology 03/17/19 Maryjo Reinoso, PRODUCTION LINE MECHANIC Cylinder Press Feeder 03/17/19 Madyson Clay, PharmD 03/17/19 Dana Lala APRN-AGRICULTURAL EQUIPMENT MECHANIC [address] [facility] 2nd [place] [address] Oncology 03/17/19 Tiffanie Nguyen APRN-CEMENT RAILROAD CAR LOADER [address] [place] [address] Family Medicine 03/17/19 Cesar Tavares MD [address] [place] [address] Referring Physician Medical Oncology 03/23/19 Joy Bob 09/22/19 Tony Dumont MD [address] [place] [phone] Hematology and Oncology 10/30/21 Shalini Segal MD [address] [place] [address] OF HEMATOLOGY & [place] [address] Senior Treasury Consultant/Oncologist Hematology and Oncology 10/30/21 Stefanie Burns, RN Registered Nurse 10/30/21 Fatemeh Bolaños, RN Registered Nurse 10/30/21 documented as of this encounter
--- OUTSIDE RECORDS SUMMARY | 2024-08-18 00:21 | XMS_ITS | Encounter Summary ---
Author Organization [facility] Address [address] [facility] [place] [address] Care Team Providers Care Master Pilot Name Role Phone Hillary Apple MD Unavailable [phone] Tony Dumont MD Unavailable [phone] Maryjo Reinoso LCSW Unavailable Unavailable Madyson Clay PharmD Unavailable Unavaila Dana Galicia CORPORATE DEVELOPMENT INTERN-HARBOR PATROL POLICE Unavailable [phone] Tiffanie Nguyen CORPORATE DEVELOPMENT INTERN-FLIGHT ENGINEER PERFORMANCE QUALIFIED Unavailable [phone] Cesar Tavares MD Unavailable Joy Bob Unavailable Fanta Ran Augustine MD Primary Care Provider Tony Dumont MD Unavailable [phone] Shalini Segal MD Unavailable Stefanie Burns RN Unavailable UnavailFatemeh Briones RN Unavailable Unavailable Reason for Visit * Radiology Services (Routine) - Closed Specialty Diagnoses / Procedures Referred By Contac t Referred To Contact Echosonography Diagnoses COVID-19 long hauler manifesting chronic dyspnea HFrEF (heart failure with reduced ejection fraction) (HCC) Procedures ECHO COMPLETE W BUBBLE STUDY Andrew Francis MD [address] DIV OF PULMONARY/[place] [address] Aff [facility] [address] [facility] [place] [address] Referral ID Status Reason Start Date Expiration Date Visits Re quested Visits Authorized [id number] Closed 11/22/2021 11/22/2022 1 1 Encounter Details Date Type Department Care Team (Late Contact Info) Description 02/22/2022 2:00 PM CDT Ancillary Procedure [facility] Echosonography [address] [facility] [place] [address] COVID Social History Tobacco Use Types Packs/Day Years [...] Encounters Date Type Department Care Team (Late Contact Info) Description 08/26/2024 11:00 AM SOLAR SYSTEMS DESIGNER Office Visit [facility] - Pulmonology [address] [place] [address], [place] [phone] Andrew Francis MD [address] [place] [address] [address]L DIV OF PULMONARY/[place] [address] documented as of this encounter Procedures Procedure Name Priority Date/Time Associated Diagnosis Comments ECHO COMPLETE W BUBBLE STUDY Routine 02/22/2022 3:04 PM CDT COVID-19 nitish garcia manifesting chronic dyspnea HFrEF (heart failure with reduced ejection fraction) ([facility]) documented in this encounter Visit Diagnoses Diagnosis COVID- Primary documented in this encounter Administered Medications Inactive Administered Medications - up to 3 most recent administrations Medication Order MAR Action Action Date Dose Rate Site perflutren lipid microsphere (Definity) injection 1.5 mL 1.5 mL, Intravenous, INTRA-PROCEDURE ONCE, 1 dose, On Fri02/22/22 at 1515, Shake well before using. $ Given 02/22/2022 3:03 PM CDT 1.5 mL documented in this encounter Care Teams Master Pilot Relationship Specialty Start Date End Date Ran Nuñez MD [address] [place] [address] PCP - General Family Medicine 08/30/21 Hillary Apple MD [address] [place] [address] Hematology and Oncology 03/17/19 Tony Dumont MD [address] [place] [address] Hematology and Oncology 03/17/19 Maryjo Reinoso, CROSS COUNTRY TRUCK DRIVER Specialty Therapist 03/17/19 Madyson Clay, PharmD 03/17/19 Dana Lala, CORPORATE DEVELOPMENT INTERN-HARBOR PATROL POLICE [facility] 2[place] [address] Oncology 03/17/19 Tiffanie Nguyen APRN-FLIGHT ENGINEER PERFORMANCE QUALIFIED [facility] 2[address] [place] [address] Family Medicine 03/17/19 Cesar Tavares MD [address] [place], [place] [address] 2nd [place] [address] Referring Physician Medical Oncology 03/23/19 Joy Bob 09/22/19 Tony Dumont MD [address] [place] [phone] Hematology and Oncology 10/30/21 Shalini Segal MD [address] [facility] OF [facility]EM[facility] [place] [address] Monkey Keeper/Oncologist Hematology and Oncology 10/30/21 Stefanie [place], RN Registered Nurse 10/30/21 Fatemeh Bolaños RN Registered Nurse 10/30/21 documented as of this encounter
--- OUTSIDE RECORDS SUMMARY | 2024-08-18 00:21 | XMS_ITS | Encounter Summary ---
Author Organization [facility] Address [address] [facility] [place] [address] Care Team Providers Care Finishing Manager Name Role Phone Hillary Apple MD Unavailable [phone] Tony Dumont MD Unavailable Maryjo ReinosoW Unavailable Unavailable Madyson Clay PharmD Unavailable UnavailDana Alcantar HEAD TRIMMER-PROJECT ECONOMIST Unavailable [phone] Tiffanie Nguyen HEAD TRIMMER-CLIENT SERVICES VICE PRESIDENT Unavailable [phone] Cesar Tavares MD Unavailable [phone] Joy Bob Unavailable Fanta Ran Augustine MD Primary Care Provider Tony Dumont MD Unavailable [phone] Shalini Segal MD Unavailable Stefanie Burns RN Unavailable UnavailFatemeh Briones RN Unavailable Unavailable Reason for Visit * Reason Comments Refill Request Encounter Details Date Type Department Care Team (Late st Contact Info) Description 09/02/2022 Refill [facility] [address] [place] [address] Tiffanie Nguyen APRN-CLIENT SERVICES VICE PRESIDENT [address] [place] [id number] Refill Request Social History Tobacco Use Types [...] In the last 10 days, have fred jacobo been in contact with someone who was confirmed or suspected to have Coronavirus/COVID-19? No / Unsure 08/26/2022 1:48 PM HIGH SPEED PRINTER OPERATOR documented as of this encounter Functional Status [...] st Contact Info) Description 08/26/2024 11:00 AM HIGH SPEED PRINTER OPERATOR Office Visit [facility] - Pulmonology [address] [place] [address], [place] [address] Andrew Francis MD [address] [place] [address] 2L DIV OF PULMONARY/[place] [address] documented as of this encounter Visit Diagnoses Not on filedocumented in this encounter Care Teams Finishing Manager Relationship Specialty Start Date End Date Ran Nuñez MD [address] [place] [address] PCP - General Family Medicine 08/30/21 Hillary Apple MD [address] [facility] [place] [address] Hematology and Oncology 03/17/19 Tony Dumont MD [address] [place] [address] Hematology and Oncology 03/17/19 Maryjo Reinoso, SURGICAL APPLIANCES SALESPERSON Recovery Rn 03/17/19 Madyson Clay, PharmD 03/17/19 Dana Lala, HEAD TRIMMER-PROJECT ECONOMIST [address] 2nd [place] [address] Oncology 03/17/19 Tiffanie Nguyen, HEAD TRIMMER-CLIENT SERVICES VICE PRESIDENT [address] 2nd [place] [address] Family Medicine 03/17/19 Cesar Tavares MD [address] [facility] [address] 2[address] [place] [address] Referring Physician Medical Oncology 03/23/19 Joy Bob 09/22/19 Tony Dumont MD [address] [place] [address] Hematology and Oncology 10/30/21 Shalini Segal MD [address] [facility] OF HEMATOLOGY [place] [address] Air Value Tester/Oncologist Hematology and Oncology 10/30/21 Stefanie Burns, RN Registered Nurse 10/30/21 Fatemeh Bolaños, RN Registered Nurse 10/30/21 documented as of this encounter
--- OUTSIDE RECORDS SUMMARY | 2024-08-18 00:21 | XMS_ITS | Encounter Summary ---
Author Organization [facility] Address [address] [facility] [place] [address] Care Team Providers Care Manager Field Sales Name Role Phone Hillary Apple MD Unavailable [phone] Tony Dumont MD Unavailable [phone] Maryjo Reinoso LCSW Unavailable Unavailable Madyson Clay PharmD Unavailable Unavaila Dana Galicia CAMERA REPAIRER-SHOE ASSOCIATE Unavailable [phone] Tiffanie Nguyen CAMERA REPAIRER-SUPERVISOR RECORD PRESS Unavailable [phone] Cesar Tavares MD Unavailable [phone] Joy Bob Unavailable Fanta Ran Augustine MD Primary Care Provider Tony Dumont MD Unavailable [phone] Shalini Segal MD Unavailable [phone] Stefanie Burns RN Unavailable UnavailFatemeh Briones RN Unavailable Unavailable Encounter Details Date Type Department Care Team (Latest Contact Info) Description 12/20/2021 Travel Social History Tobacco Use Types Packs/Day [...] st Contact Info) Description 08/26/2024 11:00 AM GEOLOGIST PETROLEUM Office Visit [facility] - Pulmonology [address] [place] [address], [place] [address] Andrew Francis MD [address] [place] [address] DIV OF PULMONARY/[place] [address] documented as of this encounter Visit Diagnoses Not on filedocumented in this encounter Care Teams Manager Field Sales Relationship Specialty Start Date End Date Ran Nuñez MD [address] [place] [address] PCP - General Family Medicine 08/30/21 Hillary Apple MD [address] [place] [address] Hematology and Oncology 03/17/19 Tony Dumont MD [address] [place] [address] Hematology and Oncology 03/17/19 Maryjo Reinoso, REYNA Weblogic Administrator 03/17/19 Madyson Clay, PharmD 03/17/19 Dana Lala, CAMERA REPAIRER-SHOE ASSOCIATE [address] [facility] 2nd [place] [address] Oncology 03/17/19 Tiffanie Nguyen, CAMERA REPAIRER-SUPERVISOR RECORD PRESS [address] [facility] [place] [address] Family Medicine 03/17/19 Cesar Tavares MD [address] [place] [address] Referring Physician Medical Oncology 03/23/19 Joy Bob 09/22/19 Tony Dumont MD [address] [place] [address] Hematology and Oncology 10/30/21 Shalini Segal MD [facility] S [facility] OF HEMATOLOGY & [place] [address] Firewall Engineer/Oncologist Hematology and Oncology 10/30/21 Stefanie Burns, RN Registered Nurse 10/30/21 Fatemeh Bolaños RN Registered Nurse 10/30/21 documented as of this encounter
--- OUTSIDE RECORDS SUMMARY | 2024-08-18 00:21 | XMS_ITS | Encounter Summary ---
Author Organization [facility] Address [address] [facility] [place] [address] Care Team Providers Care Top Frame Maker Name Role Phone Hillary Apple MD Unavailable [phone] Tony Dumont MD Unavailable [phone] Maryjo ReinosoW Unavailable Unavailable Madyson Clay PharmD Unavailable Unavaila Dana Galicia GRAPHIC DESIGN MANAGER-STEAM DRIER TENDER Unavailable [phone] Tiffanie Nguyen GRAPHIC DESIGN MANAGER-BLOOD BANK SUPERVISOR Unavailable [phone] Cesar Tavares MD Unavailable [phone] Joy Bob Unavailable Fanta Ran Augustine MD Primary Care Provider Tony Dumont MD Unavailable [phone] Shalini Segal MD Unavailable [phone] Stefanie Burns RN Unavailable Unavaila Fatemeh Kelly RN Unavailable Unavailable Glenn Hernandez MD Unavailable [phone] Chandana Lu MD Unavailable [phone] Reason for Visit * Reason Onset Date Comments MEDICATION REFILL 12/24/2021 Encounter Details Date Type Department Care Team (Late st Contact Info) Description 12/24/2021 Refill [facility] [address] [place] [address] Tiffanie Nguyen APRN-BLOOD BANK SUPERVISOR [address] [place] [address] MEDICATION REFILL Social History Tobacco Use Types [...] st Contact Info) Description 08/26/2024 11:00 AM CERTIFIED SURGICAL ASSISTANT Office Visit [facility] - Pulmonology [address] [place] [address], [place] [address] Andrew Francis MD [address] [place] [address] 2L DIV OF PULMONARY/[place] [address] documented as of this encounter Visit Diagnoses Diagnosis 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 Restless legs syndrome (RLS) documented in this encounter Care Teams Top Frame Maker Relationship Specialty Start Date End Date Ran Nuñez MD [address] [place] [address] PCP - General Family Medicine 08/30/21 [place] [address] [facility] [place] [address] PCP - Fatuma-Stefany MANRIQUEZ 03/04/23 08/21/23 Hillary Apple MD [address] [place] [address] Hematology and Oncology 03/17/19 Tony Dumont MD [address] [place] [address] Hematology and Oncology 03/17/19 Maryjo Reinoso, [facility] Assurance Specialist 03/17/19 Madyson Clay, PharmD 03/17/19 Dana Lala GRAPHIC DESIGN MANAGER-STEAM DRIER TENDER [address] 2nd [place] [address] Oncology 03/17/19 Tiffanie Nguyen, GRAPHIC DESIGN MANAGER-BLOOD BANK SUPERVISOR [address] 2nd [place] [address] Family Medicine 03/17/19 Cesar Tavares MD [address] [facility] 2nd [place] [address] Referring Physician Medical Oncology 03/23/19 Joy Bob 09/22/19 Tony Dumont MD [address] [place] [address] Hematology and Oncology 10/30/21 Shalini Segal MD [address] [facility] OF HEMATOLOGY & [place] [address] Bender Helper/Oncologist Hematology and Oncology 10/30/21 Stefanie Burns, RN Registered Nurse 10/30/21 Fatemeh Bolaños RN Registered Nurse 10/30/21 Chandana Lu MD [address] [place] [address] Orthopedic Surgery 03/30/24 documented as of this encounter
--- OUTSIDE RECORDS SUMMARY | 2024-08-18 00:21 | XMS_ITS | Encounter Summary ---
Author Organization [facility] Address [address] [facility] [place] [address] Care Team Providers Care Bolter Helper Name Role Phone Hillary Apple MD Unavailable [phone] Tony Dumont MD Unavailable Maryjo RienosoW Unavailable Unavailable Madyson Clay PharmD Unavailable Unavaila Dana Galicia LIVESTOCK PRODUCER-CRYPTOLOGIC TECHNICIAN TECHNICAL Unavailable [phone] Tiffanie Nguyen LIVESTOCK PRODUCER-BUDGET ENGINEER Unavailable [phone] Cesar Tavares MD Unavailable [phone] Joy Bob Unavailable Fanta Ran Augustine MD Primary Care Provider Tony Dumont MD Unavailable [phone] Shalini Segal MD Unavailable [phone] Stefanie Burns RN Unavailable Unavaila Fatemeh Kelly RN Unavailable Unavailable Encounter Details Date Type Department Care Team (Late st Contact Info) Description 04/24/2022 Orders Only [facility] [address], [address] [place] [address] Andrew Francis MD [address] OF PULMONARY/[place] [address] Social History Tobacco Use Types Packs/Day Years [...] st Contact Info) Description 08/26/2024 11:00 AM DIE BARBER Office Visit [facility] - Pulmonology [address] [place] [address], [place] [address] Andrew Francis MD [address] [place] [address] 2L DIV OF PULMONARY/[place] [address] documented as of this encounter Visit Diagnoses Not on filedocumented in this encounter Care Teams Bolter Helper Relationship Specialty Start Date End Date Ran Nuñez MD [address] [place] [address] PCP - General Family Medicine 08/30/21 Hillary Apple MD [address] [place] [address] Hematology and Oncology 03/17/19 Tony Dumont MD [address] [facility] [place] [address] Hematology and Oncology 03/17/19 Maryjo Reinoso, HOSPITALIST PROGRAM DIRECTOR [place] 03/17/19 Madyson Clay, PharmD 03/17/19 Dana Lala, LIVESTOCK PRODUCER-CRYPTOLOGIC TECHNICIAN TECHNICAL [address] 2nd [place] [address] Oncology 03/17/19 Tiffanie Nguyen, LIVESTOCK PRODUCER-BUDGET ENGINEER [address] 2nd [place] [address] Family Medicine 03/17/19 Cesar Tavares MD [address] 2nd [place] [address] Referring Physician Medical Oncology 03/23/19 Joy Bob 09/22/19 Tony Dumont MD [address] [place] [address] Hematology and Oncology 10/30/21 Shalini Segal MD [address] [facility] OF HEMATOLOGY & [place] [address] Distribution Analyst/Oncologist Hematology and Oncology 10/30/21 Stefanie Burns, RN Registered Nurse 10/30/21 Fatemeh Bolaños, RN Registered Nurse 10/30/21 documented as of this encounter
--- OUTSIDE RECORDS SUMMARY | 2024-08-18 00:21 | XMS_ITS | Encounter Summary ---
Author Organization [facility] Address [address] [facility] [place] [address] Care Team Providers Care Asphalt Paver Name Role Phone Hillary Apple MD Unavailable [phone] Tony Dumont MD Unavailable [phone] Maryjo ReinosoW Unavailable Unavailable Madyson Clay PharmD Unavailable Unavaila Dana Galicia REAL ESTATE SERVICES ADMINISTRATOR-SOFTWARE RELEASE ENGINEER Unavailable [phone] Tiffanie Nguyen REAL ESTATE SERVICES ADMINISTRATOR-TAX REPRESENTATIVE Unavailable [phone] Cesar Tavares MD Unavailable [phone] Joy Bob Unavailable Fanta Ran Augustine MD Primary Care Provider Tony Dumont MD Unavailable [phone] Shalini Segal MD Unavailable Stefanie Burns RN Unavailable UnavailFatemeh Briones RN Unavailable Unavailable Encounter Details Date Type Department Care Team (Late st Contact Info) Description 05/16/2022 Telephone [facility] [address] [place] [address] Stefanie Burns, RN Social History [...] Telephone Encounter - Stefanie Burns RN - 05/16/2022 10:18 AM CDT Called patient to try to schedule MMR vaccine. Patient answered and was agreeable to scheduling for05/22/22 at 12noon. He would like flu and covid bivalent boosters at this visit as well; I agreed to confirm with pharmacist that all three can be given together. documented in this encounter Plan of Treatment Upcoming Encounters Date Type Department Care Team (Late st Contact Info) Description 08/26/2024 11:00 AM MANAGER REGISTRATION Office Visit [facility] - Pulmonology [address] [place] [address], [place] [address] Andrew Francis MD [address] [place] [address] 2L DIV OF PULMONARY/[place] [address] documented as of this encounter Visit Diagnoses Not on filedocumented in this encounter Care Teams Asphalt Paver Relationship Specialty Start Date End Date Ran Nuñez MD [address] [place] [address] PCP - General Family Medicine 08/30/21 Hillary Apple MD [facility] [place] [address] Hematology and Oncology 03/17/19 Tony Dumont MD [facility] [place] [address] Hematology and Oncology 03/17/19 Maryjo Reinoso, HOUSE FELLOW Senior Housekeeper 03/17/19 Madyson Clay, PharmD 03/17/19 Dana Lala, REAL ESTATE SERVICES ADMINISTRATOR-SOFTWARE RELEASE ENGINEER [address] [place], [place] [address]TA [facility] [place] [address] Oncology 03/17/19 Tiffanie Nguyen, REAL ESTATE SERVICES ADMINISTRATOR-TAX REPRESENTATIVE [address] [place], [place] [address]TA [facility] [place] [address] Family Medicine 03/17/19 Cesar Tavares MD [address] [place] [address] 2[place] [address] Referring Physician Medical Oncology 03/23/19 CarrasquilloJoy Bedolla 09/22/19 Tony Dumont MD [address] [place] [address] Hematology and Oncology 10/30/21 Shalini Segal MD [address] [place] [address] HEMATOLOGY & [place] [address] Gis Manager/Oncologist Hematology and Oncology 10/30/21 Stefanie Burns, ROSEMARY Registered Nurse 10/30/21 Fatemeh Bolaños, RN Registered Nurse 10/30/21 documented as of this encounter
--- OUTSIDE RECORDS SUMMARY | 2024-08-18 00:21 | XMS_ITS | Encounter Summary ---
Author Organization [facility] Address [address] [facility] [place] [address] Care Team Providers Care Floating Operator Name Role Phone Hillary Aplpe MD Unavailable [phone] Tony Dumont MD Unavailable [phone] Maryjo ReinosoW Unavailable Unavailable Madyson Clay PharmD Unavailable Unavaila Dana Galicia GUEST ATTENDANT-RESIDENT SERVICES COORDINATOR Unavailable [phone] Tiffanie Nguyen GUEST ATTENDANT-INTERNAL MEDICINE VETERINARY TECHNICIAN Unavailable [phone] Cesar Tavares MD Unavailable [phone] Joy Bob Unavailable Fanta Ran Augustine MD Primary Care Provider Tony Dumont MD Unavailable [phone] Shalini Segal MD Unavailable [phone] Stefanie Burns RN Unavailable Unavaila Fatemeh Kelly RN Unavailable Unavailable Glenn Hernandez MD Unavailable [phone] Chandana Lu MD Unavailable [phone] Reason for Visit * Reason Onset Date Comments MEDICATION REFILL 04/24/2023 Encounter Details Date Type Department Care Team (Late st Contact Info) Description 04/24/2023 Refill [facility] [address] [place] [address] Tiffanie Nguyen APRN-INTERNAL MEDICINE VETERINARY TECHNICIAN [address] [place] [address] MEDICATION REFILL Social History Tobacco Use Types [...] st Contact Info) Description 08/26/2024 11:00 AM SENIOR CAREGIVER Office Visit [facility] - Pulmonology [address] [place] [address], [place] [address] Andrew Francis MD [address] [place] [address] 2L DIV OF PULMONARY/[place] [address] documented as of this encounter Visit Diagnoses Diagnosis Restless legs syndrome (RLS) documented in this encounter Care Teams Floating Operator Relationship Specialty Start Date End Date Ran Nuñez MD [address] [place] [address] PCP - General Family Medicine 08/30/21 [place] [address] [place] [address] PCP - [facility]-Stefany MANRIQUEZ 03/04/23 08/21/23 Hillary Apple MD [address] [place] [address] Hematology and Oncology 03/17/19 Tony Dumont MD [address] [place] [address] Hematology and Oncology 03/17/19 Maryjo Reinoso, [facility] Broadcast Operations Engineer 03/17/19 Madyson Clay, PharmD 03/17/19 Dana Lala, GUEST ATTENDANT-RESIDENT SERVICES COORDINATOR [facility] 2nd [place] [address] Oncology 03/17/19 Tiffanie Nguyen, GUEST ATTENDANT-INTERNAL MEDICINE VETERINARY TECHNICIAN [address] [place], [place] [address]TA [address] 2nd [place] [address] Family Medicine 03/17/19 Cesar Tavares MD [address] [place], [place] [address]TA [address] 2nd [place] [address] Referring Physician Medical Oncology 03/23/19 Joy Bob 09/22/19 Tony Dumont MD [address] [place] [address] Hematology and Oncology 10/30/21 Shalini Segal MD [address] [place] [address] OF HEMATOLOGY & [place] [address] Siphoner/Oncologist Hematology and Oncology 10/30/21 Stefanie Burns, RN Registered Nurse 10/30/21 Fatemeh Bolaños, RN Registered Nurse 10/30/21 Chandana Lu MD [address] [facility] [address] [place] [address] Orthopedic Surgery 03/30/24 documented as of this encounter
--- OUTSIDE RECORDS SUMMARY | 2024-08-18 00:21 | XMS_ITS | Encounter Summary ---
Author Organization [facility] Address [address] [facility] [place] [address] Care Team Providers Care Print Shop Assistant Name Role Phone Hillary Apple MD Unavailable [phone] Tony Dumont MD Unavailable [phone] Maryjo ReinosoW Unavailable Unavailable Madyson Clay PharmD Unavailable Unavaila Dana Galicia FITNESS TRAINER-PRINTER FLOOR COVERING ASSISTANT Unavailable [phone] Tiffanie Nguyen FITNESS TRAINER-DISTRICT MANAGER IN TRAINING Unavailable Cesar Tavares MD Unavailable [phone] Joy Bob Unavailable Fanta Ran Augustine MD Primary Care Provider Tony Dumont MD Unavailable Shalini Segal MD Unavailable Stefanie Burns RN Unavailable UnavailFatemeh Briones RN Unavailable Unavailable Encounter Details Date Type Department Care Team (Late st Contact Info) Description 05/22/2022 12:00 PM CDT - 05/22/2022 11:59 PM CDT Hospital Encounter [facility] [address] [place] [address] Hillary Apple MD [address] [facility] OF HEMATOLOGY & [place] [address] Tiffanie Nguyen, FITNESS TRAINER-DISTRICT MANAGER IN TRAINING [address] [place] [phone] Keena Loving, hatchery worker Disposition: Home or Self Care Social History [...] Sign Reading Time Taken Comments Blood Pressure 118/84 05/22/2022 12:20 PM CDT Pulse 84 05/22/2022 12:20 PM CDT Temperature 36.9 ??C (98.4 ??F) 05/22/2022 1 2:20 PM CDT Respiratory Rate 20 05/22/2022 12:2 0 PM CDT Oxygen Saturation 97% 05/22/2022 12: 20 PM CDT Inhaled Oxygen Concentration - - Weight 133.7 kg (294 lb 11.2 oz) 2021 12:20 PM CDT Height - - Body Mass Index 44.81 12/20/2021 4:48 PM CDT documented in this [...] Grams (4000 mg) / 24 hours. 04/05/2020 albuterol HFA (PROVENTIL;VENTOLIN; PROAIR) 108 (90 Base) MCG/ACT inhaler Inhale 2 puffs by mouth every 4 hours 04/05/2020 clonazePAM (KLONOPIN) 1 MG tablet Take 1 (one) tablet by mouth at bedtime 30 tablet 08/15/2021 escitalopram (LEXAPRO) 20 MG tablet TAKE 1 TABLET BY MOUTH EVERY DAY 30 tablet 11 08/10/2021 HYDROcodone-acetamin ophen (NORCO) 5-325 MG tablet Take 1 (one) tablet by mouth every 6 hours as needed for Pain multivitamin daily tablet Take 1 (one) tablet by mouth daily with food penicillin V potassium (VEETIDS) 250 MG tablet Take 1 (one) tablet by mouth 2 times daily 60 tablet 11 05/10/2021 rOPINIRole (REQUIP) 0.25 MG tabletIndications:Re stless Leg Syndrome Take 1 (one) tablet by mouth at bedtime Reasons: Restless Leg Syndrome 90 tablet 3 01/02/2021 acyclovir (ZOVIRAX) 400 MG tabletIndications:St em cells transplant status (HCC) TAKE 2 TABLETS BY MOUTH TWICE DAILY 360 tablet 3 11/28/2020 02/19/2023 diclofenac sodium EC (VOLTAREN) 75 MG tablet TK 1 T PO BID PRF PAIN 06/05/202006/30 fluticasone-salmeter ol (Advair Diskus) 500-50 MCG/ACT inhaler Inhale 1 (one) puff by mouth 2 times daily 1 Each 5 04/24/2022 06/30/2022 sulfamethoxazole-tri methoprim (BACTRIM DS; SEPTRA DS) 800-160 MG tabletIndications: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 Reviewed titer history and planned immunizations with interdisciplinary team. No significant interactions noted among immunizations to be given today. 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 Patient afebrile today and without signs/symptoms of infection. Education provided on vaccines to be administered today, including necessity of re-vaccination after transplant, to report signs and symptoms of adverse reactions, and possible side effects of vaccinations including mild soreness at injection sites. Patient verbalized understanding and agreement. MMR, flu, and covid vaccinations given and explained. Patient tolerated injections well. documented in this encounter Plan of Treatment Upcoming Encounters Date Type Department Care Team (Late st Contact Info) Description 08/26/2024 11:00 AM DEVICE ENGINEER Office Visit [facility] - Pulmonology [address] [place] [address], [place] [address] Andrew Francis MD [address] [place] [address] 2L DIV OF PULMONARY/[place] [address] documented as of this encounter Visit Diagnoses Not on filedocumented in this encounter Care Teams Print Shop Assistant Relationship Specialty Start Date End Date Ran Nuñez MD [address] [place] [address] PCP - General Family Medicine 08/30/21 Hillary Apple MD [address] [place] [address] Hematology and Oncology 03/17/19 Tony Dumont MD [address] [place] [address] Hematology and Oncology 03/17/19 Maryjo Reinoso, STATION CLEANING PORTER Global Compensation Analyst 03/17/19 Madyson Clay, PharmD 03/17/19 Dana Lala, FITNESS TRAINER-PRINTER FLOOR COVERING ASSISTANT [address] [facility] 2nd [place] [address] Oncology 03/17/19 Tiffanie Nguyen, FITNESS TRAINER-DISTRICT MANAGER IN TRAINING [address] [facility] 2nd [place] [address] Family Medicine 03/17/19 Cesar Tavares MD [address] [facility] 2nd [place] [address] Referring Physician Medical Oncology 03/23/19 Joy Bob 09/22/19 Tony Dumont MD [address] [place] [address] Hematology and Oncology 10/30/21 Shalini Segal MD [address] [place] [address] OF HEMATOLOGY [place] [address] Regional Facilities Specialist/Oncologist Hematology and Oncology 10/30/21 Stefanie Burns, RN Registered Nurse 10/30/21 Fatemeh Bolaños, RN Registered Nurse 10/30/21 documented as of this encounter
--- OUTSIDE RECORDS SUMMARY | 2024-08-18 00:21 | XMS_ITS | Encounter Summary ---
Author Organization [facility] Address [address] [facility] [place] [address] Care Team Providers Care Microsoft Bi Architect Name Role Phone Hillary Apple MD Unavailable [phone] Tony Dumont MD Unavailable [phone] Maryjo ReinosoW Unavailable Unavailable Madyson Clay PharmD Unavailable Unavaila Dana Galicia SCHOOL LABORATORY TECHNICIAN-HAND MIXER Unavailable [phone] Tiffanie Nguyen SCHOOL LABORATORY TECHNICIAN-EARTH SCIENCE TECHNICIAN Unavailable [phone] Cesar Tavares MD Unavailable [phone] Joy Bob Unavailable Fanta Ran Augustine MD Primary Care Provider Tony Dumont MD Unavailable [phone] Shalini Segal MD Unavailable [phone] Stefanie Burns RN Unavailable Unavaila Fatemeh Kelly RN Unavailable Unavailable Glenn Hernandez MD Unavailable [phone] Chandana Lu MD Unavailable [phone] Reason for Visit * Reason Onset Date Comments MEDICATION REFILL 04/24/2023 Encounter Details Date Type Department Care Team (Late st Contact Info) Description 04/24/2023 Refill [facility] [address] [place] [address] Hillary Apple MD [address] [facility] DIV OF HEMATOLOGY & [place] [address] MEDICATION REFILL Social History Tobacco Use Types [...] st Contact Info) Description 08/26/2024 11:00 AM VIDEO RECORDER MECHANIC Office Visit [facility] - Pulmonology [facility] [facility], [place] [address] Andrew Francis MD [facility] [facility] 2L DIV OF PULMONARY/[place] [address] documented as of this encounter Visit Diagnoses Not on filedocumented in this encounter Care Teams Microsoft Bi Architect Relationship Specialty Start Date End Date Ran Nuñez MD [address] [place] [address] PCP - General Family Medicine 08/30/21 [place] [address] [facility] [place] [address] PCP - Community Health-Stefany MANRIQUEZ 03/04/23 08/21/23 Hillary Apple MD [address] [place] [address] Hematology and Oncology 03/17/19 Tony Dumont MD [facility] [place] [address] Hematology and Oncology 03/17/19 Maryjo Reinoso, [facility] Storage Facility Rental Clerk 03/17/19 Madyson Clay, PharmD 03/17/19 Dana Lala, SCHOOL LABORATORY TECHNICIAN-HAND MIXER [facility] 2nd [place] [address] Oncology 03/17/19 Tiffanie Nguyen, SCHOOL LABORATORY TECHNICIAN-EARTH SCIENCE TECHNICIAN [facility] 2nd [place] [address] Family Medicine 03/17/19 Cesar Tavares MD [address] [place], [place] [address] 2nd [place]LO[place] [address] Referring Physician Medical Oncology 03/23/19 Joy Bob 09/22/19 Tony Dumont MD [address] [place] [address] Hematology and Oncology 10/30/21 Shalini Segal MD [address] [facility] OF HEM[facility] & [place]ICAL [place] [address] Architectural Renderer/Oncologist Hematology and Oncology 10/30/21 Stefanie Burns, RN Registered Nurse 10/30/21 Fatemeh Bolaños, RN Registered Nurse 10/30/21 Chandana Lu MD [address] [facility] [address] [place] [address] Orthopedic Surgery 03/30/24 documented as of this encounter
--- OUTSIDE RECORDS SUMMARY | 2024-08-18 00:21 | XMS_ITS | Encounter Summary ---
Author Organization [facility] Address [address] [facility] [place] [address] Care Team Providers Care Supervisor Adult Education Name Role Phone Hillary Apple MD Unavailable [phone] Tony Dumont MD Unavailable Maryjo ReinosoW Unavailable Unavailable Madyson Clay PharmD Unavailable Unavaila Dana Galicia NEGATIVE ASSEMBLER-SUPPLY TECH Unavailable [phone] Tiffanie Nguyen NEGATIVE ASSEMBLER-ROUGH PLANER TENDER Unavailable Cesar Tavares MD Unavailable [phone] Joy Bob Unavailable Fanta Ran Augustine MD Primary Care Provider Tony Dumont MD Unavailable [phone] Shalini Segal MD Unavailable Stefanie Burns RN Unavailable UnavailFaetmeh Briones RN Unavailable Unavailable Reason for Visit * Reason Onset Date Comments Refill Request 04/24/2022 Encounter Details Date Type Department Care Team (Late st Contact Info) Description 04/24/2022 Telephone [facility] Pulmonary, Critical Care and Sleep Medicine [address] [facility], [place] [address] Andrew Francis MD [address] [facility] 2L DIV OF PULMONARY/[place] [address] Refill Request Social History Tobacco Use Types [...] Telephone Encounter - Thea Lanza RN - 04/25/2022 11:14 AM CDT Spoke with patient, made him aware of Change to medication. Patient encouraged to contact office for questions or concerns. * Telephone Encounter - Thea Lanza RN - 04/24/2022 2:15 PM CDT Drug Change Request budesonide-formoterol (Symbicort) 160-4.5 MCG/ACT inhaler Not covered by patient insurance plan. Preferred alternatives: Breo Ellipta Advair diskus inh Please advise Thank you documented in this encounter Plan of Treatment Upcoming Encounters Date Type Department Care Team (Late st Contact Info) Description 08/26/2024 11:00 AM FINANCE DIRECTOR Office Visit [facility] - Pulmonology [address] [place] [address], [place] [address] Andrew Francis MD [address] [place] [address] 2L DIV OF PULMONARY/[place] [address] documented as of this encounter Visit Diagnoses Not on filedocumented in this encounter Care Teams Supervisor Adult Education Relationship Specialty Start Date End Date Ran Nuñez MD [address] [place] [address] PCP - General Family Medicine 08/30/21 Hillary Apple MD [address] [place] [address] Hematology and Oncology 03/17/19 Tony Dumont MD [address] [place] [address] Hematology and Oncology 03/17/19 Maryjo Reinoso, STRATEGIC PROCUREMENT MANAGER Journeyman Powerhouse Operator 03/17/19 Madyson Clay, PharmD 03/17/19 Dana Lala, NEGATIVE ASSEMBLER-SUPPLY TECH [facility] [facility] [place] [address] Oncology 03/17/19 Tiffanie Nguyen, NEGATIVE ASSEMBLER-ROUGH PLANER TENDER [address] [place], [place] [address] 2nd [place] [address] Family Medicine 03/17/19 Cesar Tavares MD [facility] [facility] 2nd [place] [address] Referring Physician Medical Oncology 03/23/19 Joy Bob 09/22/19 Tony Dumont MD [address] [place] [address] Hematology and Oncology 10/30/21 Shalini Segal MD [address] [place] [address] OF HEMATOLOGY [place] [address] District Traffic Chief/Oncologist Hematology and Oncology 10/30/21 Stefanie Burns, RN Registered Nurse 10/30/21 Fatemeh Bolaños, RN Registered Nurse 10/30/21 documented as of this encounter
--- OUTSIDE RECORDS SUMMARY | 2024-08-18 00:21 | XMS_ITS | Encounter Summary ---
Author Organization [facility] Address [address] [facility] [place] [address] Care Team Providers Care Respiratory Clinician Name Role Phone Hillary Apple MD Unavailable [phone] Tony Dumont MD Unavailable Maryjo ReinosoW Unavailable Unavailable Madyson Clay PharmD Unavailable UnavailDana Alcantar ELECTRICAL ENGINEERING DIRECTOR-WOOD WEB WEAVING MACHINE OPERATOR Unavailable [phone] Tiffanie Nguyen ELECTRICAL ENGINEERING DIRECTOR-WINE SPECIALIST Unavailable [phone] Cesar Tavares MD Unavailable [phone] Joy Bob Unavailable Fanta Ran Augustine MD Primary Care Provider Tony Dumont MD Unavailable [phone] Shalini Segal MD Unavailable Stefanie Burns RN Unavailable UnavailFatemeh Briones RN Unavailable Unavailable Reason for Visit * Reason Comments Refill Request Encounter Details Date Type Department Care Team (Late st Contact Info) Description 06/08/2022 Refill [facility] CLIN[facility] [address] [place] [address] Tiffanie Nguyen APRN-WINE SPECIALIST [address] [place] [id number] Refill Request Social History Tobacco Use Types [...] st Contact Info) Description 08/26/2024 11:00 AM APPRENTICE EMBALMER Office Visit [facility] - Pulmonology [address] [place] [address], [place] [address] Andrew Francis MD [address] [place] [address] 2L DIV OF PULMONARY/[place] [address] documented as of this encounter Visit Diagnoses Not on filedocumented in this encounter Care Teams Respiratory Clinician Relationship Specialty Start Date End Date Ran Nuñez MD [address] [place] [address] PCP - General Family Medicine 08/30/21 Hillary Apple MD [address] [place] [address] Hematology and Oncology 03/17/19 Tony Dumont MD [address] [place] [address] Hematology and Oncology 03/17/19 Maryjo Reinoso, REYNA Swage Toolsetter 03/17/19 Madyson Clay, PharmD 03/17/19 Dana Laal, ELECTRICAL ENGINEERING DIRECTOR-WOOD WEB WEAVING MACHINE OPERATOR [address] 2nd [place] [address] Oncology 03/17/19 Tiffanie Nguyen, ELECTRICAL ENGINEERING DIRECTOR-WINE SPECIALIST [address] [facility] 2nd [place] [address] Family Medicine 03/17/19 Cesar Tavares MD [address] [facility] 2[place] [address] Referring Physician Medical Oncology 03/23/19 Joy Bob 09/22/19 Tony Dumont MD [address] [place] [address] Hematology and Oncology 10/30/21 Shalini Segal MD [address] [facility] OF HEMATOLOGY & [place] [address] Brass Wind Instruments Tube Bender/Oncologist Hematology and Oncology 10/30/21 Stefanie Burns, RN Registered Nurse 10/30/21 Fatemeh Bolaños, RN Registered Nurse 10/30/21 documented as of this encounter
--- OUTSIDE RECORDS SUMMARY | 2024-08-18 00:21 | XMS_ITS | Encounter Summary ---
Author Organization [facility] Address [address] [facility] [place] [address] Care Team Providers Care Casey Saw Operator Name Role Phone Hillary Apple MD Unavailable [phone] Tony Dumont MD Unavailable Maryjo ReinosoW Unavailable Unavailable Madyson Clay PharmD Unavailable Unavaila Dana Galicia PASTRY ASSISTANT-APPLICATION DBA Unavailable [phone] Tiffanie Nguyen PASTRY ASSISTANT-ENTRY LEVEL ACCOUNTANT Unavailable Cesar Tavares MD Unavailable [phone] Joy Bob Unavailable Fanta Ran Augustine MD Primary Care Provider Tony Dumont MD Unavailable [phone] Shalini Segal MD Unavailable Stefanie Burns RN Unavailable Unavaila Fatemeh Kelly RN Unavailable Unavailable Encounter Details Date Type Department Care Team (Late st Contact Info) Description 06/30/2022 5:00 PM ENTRY REP - 06/30/2022 11:59 PM ENTRY REP Hospital Encounter [facility] [address] [facility] [place] [address] Radha Chicas, PASTRY ASSISTANT-ENTRY LEVEL ACCOUNTANT [address] [place] [address] Discharge Disposition: Home or Self Care Social [...] Coronavirus/COVID-19? No / Unsure 06/30/2022 4:57 PM ENTRY REP documented as of this encounter Last Filed Vital Signs Vital Sign Reading Time Taken Comments Blood Pressure 126/83 06/30/2022 6:32 PM ENTRY REP Pulse 95 06/30/2022 6:32 PM ENTRY REP Temperature 37.2 ??C (99 ??F) 06/30/2022 6:32 PM ENTRY REP Respiratory Rate 20 06/30/2022 6:32 PM ENTRY REP Oxygen Saturation 99% 06/30/2022 6:32 PM ENTRY REP on 6L/NC Inhaled Oxygen Concentration - - Weight 121.6 kg (268 lb) 06/30/2022 6:32 PM ENTRY REP Height - - Body Mass Index 40.75 12/20/2021 4:48 PM CDT documented in this [...] No 02/25/2020 documented as of this encounter Discharge Instructions * Patient Instructions* Radha Chicas APRN-ERIKA - 06/30/2022 7:13 PM ENTRY REP Call provider tomorrow to verify pausing penicillin administration while taking Augmentin Prednisone once daily for 5 days as prescribed Tessalon Perles as needed up to 3 times daily for cough Recommend wearing brace to support ribs during cough Follow-up with PCP for symptoms that worsen or persist Y REP documented in this encounter Medications at Time of Discharge Medication Sig Dispensed Refills Start Date End Date acetaminophen (TYLENOL) 325 MG tablet Take 1 tablet by mouth every 4 hours as needed Maximum allowable Acetaminophen amount = 4 Grams (4000 mg) / 24 hours. 04/05/2020 albuterol HFA (PROVENTIL;VENTOLIN; PROAIR) 108 (90 Base) MCG/ACT inhaler Inhale 2 puffs by mouth every 4 hours 04/05/2020 benzonatate (Tessalon) 200 MG capsule Take 1 [...] TWICE DAILY 360 tablet 3 11/28/2020 02/19/2023 amoxicillin-clavulan ate (Augmentin) 875-125 MG tablet Take 1 (one) tablet by mouth 2 times daily with morning and evening meal for 7 days 14 tablet 06/30/2022 07/07/2022 predniSONE (Deltasone) 20 MG tablet Take 2 (two) tablets by mouth once daily for 5 days 10 tablet 06/30/2022 07/05/2022 Symbicort 160-4.5 MCG/ACT inhaler 06/08/2022 01/17/2023 documented as of this encounter Progress Notes * Radha Chicas, PASTRY ASSISTANT-ENTRY LEVEL ACCOUNTANT - 06/30/2022 6:53 PM CST Images from the original note were not included. JERRY TORRES History of Present Illness Patient Identification Marcello Guillen is a 52 year old male. PCP: Ran Nuñez MD Patient information was obtained from patient. History/Exam limitations: none. Patient presented to the Urgent Care ambulatory. Chief Complaint cough Reason for Visit: congestion, cough, pain in ribcage HPI Marcello Guillen is a 52 year old who has a past medical history of Acute respiratory failure with hypoxia ([facility]), Asthma (12/03/2017), B-cell lymphoma ([facility]) (04/18/2017), Back pain (12/24/2021), COVID-19 with pulmonary comorbidity (12/20/2021), Diverticulosis, DLBCL (diffuse large B cell lymphoma) ([facility]) (05/24/2019), Fever (02/25/2020), GERD (gastroesophageal reflux disease), Ground glass opacity present on imaging of lung, H/O echocardiogram (08/11/2019), History of marijuana use (06/28/2019), History of nephrolithiasis (12/24/2021), Hypersomnia due to medical condition (12/24/2021), Hypoxemia (02/19/2021), Lymphadenopathy (04/11/2017), Lymphoma of lymph nodes ([facility]), Multiple body piercings, LISSA (obstructive sleep apnea) (12/24/2021), Periodic limb movement disorder (PLMD) (12/24/2021), Pneumonia due to COVID-19 virus, Port-A-Cath in place, Restless legs syndrome (RLS) (12/24/2021), 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 who presents to the Urgent Care today c/o cough. Onset was 3 days ago. Associating symptoms include increased shortness of breath, dyspnea, wheezing, and O2 requirement. Patient described pain as generalized and rates 0/10 in intensity. OTC medications include cough medications with no improvement of symptoms. Patient denies chills, chest pain, n/v/d, and abdominal pain. No known sick contacts or COVIDexposures. Negative home COVID test. Past Medical History: Diagnosis Date ??? Acute respiratory failure with hypoxia ([facility]) ??? Asthma 12/03/2017 ??? B-cell lymphoma ([facility]) 04/18/2017 ??? Back pain 12/24/2021 ??? COVID-19 with pulmonary comorbidity 12/20/2021 ??? Diverticulosis ??? DLBCL (diffuse large B cell lymphoma) ([facility]) 05/24/2019 ??? Fever 02/25/2020 ??? GERD (gastroesophageal reflux disease) taking prevacid prn ??? Ground glass opacity present on imaging of lung ??? H/O echocardiogram 08/11/2019 ??? History of marijuana use 06/28/2019 ??? History of nephrolithiasis 12/24/2021 ??? Hypersomnia due to medical condition 12/24/2021 ??? Hypoxemia 02/19/2021 ??? Lymphadenopathy 04/11/2017 ??? Lymphoma of lymph nodes ([facility]) ??? Multiple body piercings facial ??? LISSA (obstructive sleep apnea) 12/24/2021 ??? Periodic limb movement disorder (PLMD) 12/24/2021 ??? Pneumonia due to COVID-19 virus ??? Port-A-Cath in place right subclavian ??? Restless legs syndrome (RLS) 12/24/2021 ??? S/P splenectomy 09/09/2019 ??? Sleep apnea not using CPAP ??? Status post autologous bone marrow transplant ([facility]) 03/05/2020 ??? Stem cells transplant status ([facility]) ??? Transient alteration of awareness 2018 during [...] DEVICE (PORT OR CATHETER) Right 2018 subclavian Family History Problem Relation Name Age [...] 2 puffs by mouthevery 4 hours ??? amoxicillin-clavulanate (Augmentin) 875-125 MG tablet Take 1 (one) tablet by mouth 2 times daily with morning and evening meal for 7 days 14 tablet 0 ??? benzonatate (Tessalon) 200 MG capsule Take [...] 2 times daily 60 tablet 11 ??? predniSONE (Deltasone) 20 MG tablet Take 2 (two) tablets by mouth once daily for 5 days 10 tablet 0 ??? rOPINIRole (REQUIP) 0.25 MG tablet Take 1 (one) tablet by mouth at bedtime Reasons: Restless Leg Syndrome 90 tablet 3 ??? Symbicort 160-4.5 MCG/ACT inhaler No current facility-administered medications for this encounter. Allergies Allergen Reactions ??? Adhesive Sensitivity Urticaria and Other Electrodes -- welps where stickers are Also, use paper tape Social History Tobacco Use ??? Smoking status: Former Packs/day: 0.50 Types: Cigarettes Start date: 1983 Quit date: 2001 Years since quittin.9 ??? Smokeless tobacco: Former Types: Chew Quit date: 2016 Substance Use Topics ??? Alcohol use: Not Currently Review of Systems ROS Constitutional: Positive for low grade temp. Negative for fatigue, chills, malaise. Eyes: Negative Ears, nose, mouth, and throat: Positive for congestion. Negative for sore throat, ear pain, rhinorrhea, post nasal drainage, changes in taste/smell Respiratory:Positive for shortness of breath, acute cough, wheezing, and increased O2 requirement Cardiovascular: Negative for chest pain Hematologic/lymphatic: Negative for swollen nodes Neurological: Negative for headaches Physical Exam BP 126/83 (BP POSITION: SITTING) Pulse 95 Temp 99 ??F (37.2 ??C) (Temporal) Resp 20 Wt 121.6 kg (268 lb) SpO2 99% BMI 40.75 kg/m?? Physical Exam Vitals and nursing note reviewed. Constitutional: General: He is not in acute distress. Appearance: Normal appearance. He is not ill-appearing, toxic-appearing or diaphoretic. HENT: Head: Normocephalic and atraumatic. Right Ear: Hearing, tympanic membrane, ear canal and external ear normal. Left Ear: Hearing, tympanic membrane, ear canal and external ear normal. Nose: Nose normal. Mouth/Throat: Lips: [place]. Mouth: Mucous membranes are moist. Pharynx: Oropharynx is clear. Uvula midline. Tonsils: 0 on the right. 0 on the left. Eyes: Pupils: Pupils are equal, round, and reactive to light. Cardiovascular: Rate and Rhythm: Normal rate and regular rhythm. Heart sounds: Normal heart sounds. No murmur heard. Pulmonary: Effort: Pulmonary effort is normal. No tachypnea, bradypnea, accessory muscle usage, prolonged expiration, respiratory distress or retractions. Breath sounds: Decreased air movement present. No stridor or transmitted upper airway sounds. Wheezing present. No decreased breath sounds, rhonchi or rales. Musculoskeletal: Cervical back: Normal range of motion and neck supple. Lymphadenopathy: Cervical: No cervical adenopathy. Skin: General: Skin is warm and dry. Capillary Refill: Capillary refill takes less than 2 seconds. Neurological: Mental Status: He is alert and oriented to person, place, and time. Psychiatric: Behavior: Behavior normal. Behavior is cooperative. Procedures Procedures Lab/SPO2 Interpretation Hospital Encounter on 06/30/22 INFLUENZA A+B - POCT (IP) URGENT CARE Result Value Ref Range Influenza A Antigen Rapid Negative Negative Influenza B Antigen Rapid Negative Negative QC Verified Yes Yes Progress Notes Influenza testing negative today in Urgent Care. Prescription for Augmentin (due to asplenia) sent to pharmacy Patient advised to hold penicillin while taking Augmentin Patient advised to contact prescribing provider to verify plan of care Prescriptions for prednisone and Tessalon Perles sent to pharmacy Recommend symptomatic treatment and rest. Advised patient of contagious precautions, self-care, worsening symptoms, and follow up. Patient verbalized understanding and agrees with plan of care. Patient is hemodynamically stable and non-septic appearing.Pt. is appropriate for discharge home atthis time in the setting of strict return/follow-up precautions to include s/s warranting immediateemergency department evaluation. Medical Decision Making I have reviewed the: Nursing Notes, Vitals. I have interpreted the following results: Labs, Oxygen Saturation. Assessment ICD-10-CM 1. Lower respiratory tract infection J22 INFLUENZA A+B - POCT (IP) URGENT CARE Plan Orders Placed This Encounter ??? INFLUENZA A+B - POCT (IP) URGENT CARE Standing Status: Standing Number of Occurrences: 1 Order Specific Question: Release to patient Answer: Immediate ??? predniSONE (Deltasone) 20 MG tablet Sig: Take 2 (two) tablets by mouth once daily for 5 days Dispense: 10 tablet Refill: 0 ??? benzonatate (Tessalon) 200 MG capsule Sig: Take 1 (one) capsule by mouth 3 times daily as needed for Cough Dispense: 30 capsule Refill: 0 ??? amoxicillin-clavulanate (Augmentin) 875-125 MG tablet Sig: Take 1 (one) tablet by mouth 2 times daily with morning and evening meal for 7 days Dispense: 14 tablet Refill: 0 Call provider tomorrow to verify pausing penicillin administration while taking Augmentin Prednisone once daily for 5 days as prescribed Tessalon Perles as needed up to 3 times daily for cough Recommend wearing brace to support ribs during cough Follow-up with PCP for symptoms that worsen or persist Follow up with Ran Nuñez MD prn if symptoms persist, sooner if symptoms worsen. AVS reviewed with patient. The Patient indicates understanding of these issues and agrees with the plan. Patient discharged to Home. PRASANNA Michaels 06/30/2022 7:25 PM Y REP * Nicholas Mathew RN - 06/30/2022 6:34 PM CST Arrives with c/o congestion, cough, rib pain starting 3 days. Home covid test last night was negative. Y REP documented in this encounter Miscellaneous Notes * Addendum Note - Annabella Fonseca CCS - 06/30/2022 11:59 PM CSTEncounter addended by: Annabella Fonseca CCS on: 07/03/2022 12:17 AM Actions taken: Charge Capture section accepted Y REP * Addendum Note - Radha Chicas APRN-CNP - 06/30/2022 7:49 PM CSTEncounter addended by: Radha Chicas APRN-CNP on: 06/30/2022 7:49 PM Actions taken: Clinical Note Signed Y REP * Clinical References AVS - Radha Chicas APRN-CNP - 06/30/2022 7:13 PM ENTRY REP Images from the original note were not included. [id number] Bronchitis, Antibiotics (Adult) Bronchitis is inflammation and swelling of the air passages (bronchial tubes) in your lungs. This is often caused by an infection. Symptoms include a dry, hacking cough that is worse at night. The cough may bring up yellow-green mucus. You may also feel short of breath or wheeze. Other symptoms mayinclude tiredness, chest discomfort, fever, and chills. This illness can be spread to other people in the first few days. It is spread through the air by coughing and sneezing. It is also spread by direct contact. This means touching the sick person and then touching your own eyes, nose, or mouth. Bronchitis is most often caused by a virus. It is not often treated with antibiotic medicine. But severe or long-term bronchitis may be treated with antibiotics. Other medicines may be given to help relieve symptoms. Symptoms can last up to 2 weeks. The cough may last much longer. Home care Follow these guidelines when caring for yourself at home: ?? Take the antibiotic medicine exactly as directed. Do not stop taking it, even when you feel better. Finish all of the antibiotic medicine. ?? If your symptoms are severe, rest at home for the first 2 to 3 days. When you go back to your daily tasks, don't let yourself get too tired. ?? Don't smoke. Stay away from secondhand smoke. ?? You may use cemz-tjh-kvhsdlt medicines to control fever or pain. Or use another medicine as prescribed. If you have chronic liver or kidney disease or have ever had a stomach ulcer or bleeding in your stomach or intestines, talk with your healthcare provider before using these medicines. Also talk to your provider if you are taking medicine to prevent blood clots. Aspirin should never be takenby anyone younger than age 18 who has a virus or fever. It may cause severe liver or brain damage, or even . ?? Your body needs a lot of fluids now. Drink 6 to 8 glasses of fluids per day. This includes water, soft drinks, sports drinks, juices, tea, or soup. Extra fluids will help loosen mucus in your noseand lungs. ?? Your appetite may be low. A light diet is fine. ?? Eahu-hom-sjsumaa cough, cold, and sore-throat medicines will not shorten the length of the illness, but they may be helpful to reduce your symptoms. Don't use decongestants if you have high blood pressure. Follow-up care Follow up with your healthcare provider, as advised. If you had an X-ray or ECG (electrocardiogram), you will be told of any new test results that may affect your care. Ask your healthcare provider about the pneumococcal vaccines and a yearly flu shot. There are 2 kinds of pneumococcal vaccines. You may need both. You?re at higher risk of lung infection if any of these apply to you: ?? You are age 65 or older ?? You have a chronic lung disease ?? You have condition that affects your immune system ?? You smoke When to get medical care Call your healthcare provider right away if have any of these: ?? Fever of 100.4??F (38??C) or higher ?? Coughing up more mucus ?? Facial pain or ear pain ?? Mild weakness, drowsiness, headache, or a stiff neck Call 911 Call 911 if any of these occur: ?? Coughing up blood ?? Weakness, drowsiness, headache, or stiff neck that get worse ?? Trouble breathing, wheezing, or pain with breathing ?? Lips or skin looks blue, purple, or castillo in color ?? Feeling of doom Last Reviewed Date: 2021 ?? [id number] [employer]. All rights reserved. This information is not intended as a substitute for professional medical care. Always follow your healthcare professional's instructions. Y REP documented in this encounter Plan of Treatment Upcoming Encounters Date Type Department Care Team (Late st Contact Info) Description 08/26/2024 11:00 AM ENTRY REP Office Visit [facility] - Pulmonology [address] [place] [address], [place] [id number] Andrew Francis MD [address] [place] [address] 2L DIV OF PULMONARY/[place] [address] documented as of this encounter Procedures Procedure Name Priority Date/Time Associated Diagnosis Comments INFLUENZA A+B - POCT (IP) URGENT CARE Routine 06/30/2022 7:04 PM ENTRY REP Lower respiratory tract infection documented in this encounter Results * INFLUENZA A+B - POCT (IP) URGENT CARE (06/30/2022 7:04 PM ENTRY REP) Influenza A Antigen Rapid Negative Negative [facility] Influenza B Antigen Rapid Negative Negative [facility] QC Verified Yes Yes [facility] Other SPECIMEN FROM NASAL FOSSAE / Unknown 06/30/2022 7:04 PM ENTRY REP Radha Sharon PASTRY ASSISTANT-ENTRY LEVEL ACCOUNTANT LAB - POINT OF CARE ORDERABLES [facility] [address] [phone] documented in this encounter Visit Diagnoses Diagnosis Lower respiratory tract infection- Primary Other diseases of respiratory system, not elsewhere classified documented in this encounter Care Teams Casey Saw Operator Relationship Specialty Start Date End Date Ran Nuñez MD [address] [place] [address] PCP - General Family Medicine 08/30/21 Hillary Apple MD [address] [place] [address] Hematology and Oncology 03/17/19 Tony Dumont MD [address] [place] [address] Hematology and Oncology 03/17/19 Maryjo Reinoso, DOPE FIRER Literature Teacher 03/17/19 Madyson Clay, PharmD 03/17/19 Dana Lala PASTRY ASSISTANT-APPLICATION DBA [address] [place] [place] [address] Oncology 03/17/19 Tiffanie Nguyen APRN-ENTRY LEVEL ACCOUNTANT [address] [place] [address] Family Medicine 03/17/19 Cesar Tavares MD [address] [place] [address] Referring Physician Medical Oncology 03/23/19 Joy Bob 09/22/19 Tony Dumont MD [address] [place] [address] Hematology and Oncology 10/30/21 Shalini Segal MD [address] [facility] OF HEMATOLOGY & [place]ICAL [place] [address] Extrusion Technician/Oncologist Hematology and Oncology 10/30/21 Stefanie Burns, ROSEMARY Registered Nurse 10/30/21 Fatemeh Bolaños RN Registered Nurse 10/30/21 documented as of this encounter
--- OUTSIDE RECORDS SUMMARY | 2024-08-18 00:21 | XMS_ITS | Encounter Summary ---
Author Organization [facility] Address [address] [place] [address] Care Team Providers Care Reaming Machine Operator Name Role Phone Hillary Apple MD Unavailable [phone] Tony Dumont MD Unavailable Maryjo ReinosoW Unavailable Unavailable Madyson Clay PharmD Unavailable Unavaila Dana Galicia WELDING MACHINE ASSEMBLER-SOLUTION COORDINATOR Unavailable [phone] Tiffanie Nguyen WELDING MACHINE ASSEMBLER-BRANCH MANAGER Unavailable Cesar Tavares MD Unavailable [phone] Joy Bob Unavailable Fanta Ran Augustine MD Primary Care Provider Tony Dumont MD Unavailable [phone] Shalini Segal MD Unavailable [phone] Stefanie Burns RN Unavailable UnavailFatemeh Briones RN Unavailable Unavailable Reason for Visit * Reason Onset Date Comments MEDICATION REFILL 03/21/2022 Encounter Details Date Type Department Care Team (Late st Contact Info) Description 03/21/2022 Refill [facility] Pul[facility], Critical Care and Sleep Medicine [address] [facility], [place] [id number] Andrew Francis MD [address] [facility] 2L DIV OF PULMONARY/CRITICAL CARE [place], [place] [id number] MEDICATION REFILL Social History Tobacco Use Types [...] Telephone Encounter - Thea Lanza RN - 03/21/2022 2:01 PM CDT Refill Request Marcello Guillen CARMELO: 11/22/21 NOV scheduled: 03/28/2022 LRF: 11/24/21 Qty Disp: 10.2g # of refills: 3 Allergies: Allergies Allergen Reactions ??? Adhesive Sensitivity Urticaria and Other Electrodes -- welps where stickers are Also, use paper tape Pended Medication Order: Requested Prescriptions Pending Prescriptions Disp Refills ??? budesonide-formoterol (Symbicort) 160-4.5 MCG/ACT inhaler 10.2 g 3 Sig: Inhale 2 (two) puffs by mouth 2 times daily documented in this encounter Plan of Treatment Upcoming Encounters Date Type Department Care Team (Late st Contact Info) Description 08/26/2024 11:[address] CONSTRUCTION INSPECTOR Office Visit [facility] - Pulmonology [address] [place] [address], [place] [address] Andrew Francis MD [address] [place] [address] 2L DIV OF PULMONARY/[place] [address] documented as of this encounter Visit Diagnoses Not on filedocumented in this encounter Care Teams Reaming Machine Operator Relationship Specialty Start Date End Date Ran Nuñez MD [address] [place] [address] PCP - General Family Medicine 08/30/21 Hillary Apple MD [address] [place] [address] Hematology and Oncology 03/17/19 Tony Dumont MD [address] [place] [address] Hematology and Oncology 03/17/19 Maryjo Reinoso, HYDROMETER FINISHER Canvas Baster 03/17/19 Madyson Clay, PharmD 03/17/19 Dana Lala, WELDING MACHINE ASSEMBLER-SOLUTION COORDINATOR [facility] [facility] [place] [address] Oncology 03/17/19 Tiffanie Nguyen, WELDING MACHINE ASSEMBLER-BRANCH MANAGER [address] [place], [place] [address] [place] [address] Family Medicine 03/17/19 Cesar Tavares MD [facility] [facility] 2nd [place] [address] Referring Physician Medical Oncology 03/23/19 Joy Bob 09/22/19 Tony Dumont MD [address] [place] [address] Hematology and Oncology 10/30/21 Shalini Segal MD [address] [place] [address] OF HEMATOLOGY & [place] [address] Steam Trap Worker/Oncologist Hematology and Oncology 10/30/21 Stefanie Burns, RN Registered Nurse 10/30/21 Fatemeh Bolaños, RN Registered Nurse 10/30/21 documented as of this encounter
--- OUTSIDE RECORDS SUMMARY | 2024-08-18 00:21 | XMS_ITS | Encounter Summary ---
Author Organization [facility] Address [address] [place] [address] Care Team Providers Care Manager Investigations Name Role Phone Hillary Apple MD Unavailable [phone] Tony Dumont MD Unavailable [phone] Maryjo Reinoso LCSW Unavailable Unavailable Madyson Clay PharmD Unavailable Unavaila Dana Galicia ORE DIGGER-SUPERVISOR PRESSING DEPARTMENT Unavailable [phone] Tiffanie Nguyen ORE DIGGER-TUMBLER TENDER Unavailable [phone] Cesar Tavares MD Unavailable [phone] Joy Bob Unavailable Fanta Ran Augustine MD Primary Care Provider Tony Dumont MD Unavailable [phone] Shalini Segal MD Unavailable [phone] Stefanie Burns RN Unavailable UnavailFatemeh Briones RN Unavailable Unavailable Encounter Details Date Type Department Care Team (Latest Contact Info) Description 12/02/2022 Travel Social History Tobacco Use Types Packs/Day [...] st Contact Info) Description 08/26/2024 11:00 AM BRAND RECORDER Office Visit [facility] - Pulmonology [address] [place] [address], [place] [address] Andrew Francis MD [address] [place] [address] 2L DIV OF PULMONARY/[place] [address] documented as of this encounter Visit Diagnoses Not on filedocumented in this encounter Care Teams Manager Investigations Relationship Specialty Start Date End Date Ran Nuñez MD [address] [place] [address] PCP - General Family Medicine 08/30/21 Hillary Apple MD [address] [place] [address] Hematology and Oncology 03/17/19 Tony Dumont MD [address] [place] [address] Hematology and Oncology 03/17/19 Maryjo Reinoso, REYNA Co Supervisor Grounds And Landscape 03/17/19 Madyson Clay, PharmD 03/17/19 Dana Lala, ORE DIGGER-SUPERVISOR PRESSING DEPARTMENT [address] [facility] 2nd [place] [address] Oncology 03/17/19 Tiffanie Nguyen, ORE DIGGER-TUMBLER TENDER [address] [facility] 2[place] [address] Family Medicine 03/17/19 Cesar Tavares MD [address] [facility] 2nd [place] [address] Referring Physician Medical Oncology 03/23/19 Joy Bob 09/22/19 Tony Dumont MD [address] [place] [address] Hematology and Oncology 10/30/21 Shalini Segal MD [facility] S [facility] OF HEMATOLOGY & [place] [address] Back Sewer/Oncologist Hematology and Oncology 10/30/21 Stefanie Burns, RN Registered Nurse 10/30/21 Fatemeh Bolaños, RN Registered Nurse 10/30/21 documented as of this encounter
--- OUTSIDE RECORDS SUMMARY | 2024-08-18 00:21 | XMS_ITS | Encounter Summary ---
Author Organization [facility] Address [address] [facility] [place] [address] Care Team Providers Care Vice President Client Services Name Role Phone Hillary Apple MD Unavailable [phone] Tony Dumont MD Unavailable Maryjo ReinosoW Unavailable Unavailable Madyson Clay PharmD Unavailable UnavailDana Alcantar AUTOMOTIVE BRAKE TECHNICIAN-PATIENT CARE ASSISTANT Unavailable [phone] Tiffanie Nguyen AUTOMOTIVE BRAKE TECHNICIAN-DIRECTOR COUNSELING BUREAU Unavailable [phone] Cesar Tavares MD Unavailable [phone] Joy Bob Unavailable Fanta Ran Augustine MD Primary Care Provider Tony Dumont MD Unavailable [phone] Shalini Segal MD Unavailable [phone] Stefanie Burns RN Unavailable UnavailFatemeh Briones RN Unavailable Unavailable Reason for Visit * Reason Comments Refill Request Encounter Details Date Type Department Care Team (Late st Contact Info) Description 02/17/2022 Refill [facility] CLIN[facility] [address] [place] [address] Tiffanie Nguyen APRN-DIRECTOR COUNSELING BUREAU [address] [place] [id number] Refill Request Social History Tobacco Use Types [...] st Contact Info) Description 08/26/2024 11:00 AM YARD LABOR SUPERVISOR Office Visit [facility] - Pulmonology [address] [place] [address], [place] [address] Andrew Francis MD [address] [place] [address] DIV OF PULMONARY/[place] [address] documented as of this encounter Visit Diagnoses Diagnosis Status post autologous bone marrow transplant (HCC) Bone marrow replaced by transplant documented in this encounter Care Teams Vice President Client Services Relationship Specialty Start Date End Date Ran Nuñez MD [address] [place] [address] PCP - General Family Medicine 08/30/21 Hillary Apple MD [address] [place] [address] Hematology and Oncology 03/17/19 Tony Dumont MD [address] [facility] [place] [address] Hematology and Oncology 03/17/19 Maryjo Reinoso, SUPERVISOR REFINING Investigator Utility Bill Complaints 03/17/19 Madyson Clay, PharmD 03/17/19 Dana Lala, AUTOMOTIVE BRAKE TECHNICIAN-PATIENT CARE ASSISTANT [address] 2nd [place] [address] Oncology 03/17/19 Tiffanie Nguyen, AUTOMOTIVE BRAKE TECHNICIAN-DIRECTOR COUNSELING BUREAU [address] 2nd [place] [address] Family Medicine 03/17/19 Cesar Tavares MD [address] 2nd [place] [address] Referring Physician Medical Oncology 03/23/19 Joy Bob 09/22/19 Tony Dumont MD [address] [place] [address] Hematology and Oncology 10/30/21 Shalini Segal MD [address] [facility] OF HEMATOLOGY & [place] [address] Life Advisor/Oncologist Hematology and Oncology 10/30/21 Stefanie Burns, RN Registered Nurse 10/30/21 Fatemeh Bolaños, RN Registered Nurse 10/30/21 documented as of this encounter
--- OUTSIDE RECORDS SUMMARY | 2024-08-18 00:21 | XMS_ITS | Encounter Summary ---
Author Organization [facility] Address [address] [facility] [place] [address] Care Team Providers Care Service Unit Operator Name Role Phone Hillary Apple MD Unavailable [phone] Tony Dumont MD Unavailable [phone] Maryjo ReinosoW Unavailable Unavailable Madyson Clay PharmD Unavailable UnavailDana Alcantar MATERIALS PLANNING MANAGER-CURRICULUM DEVELOPMENT MANAGER Unavailable [phone] Tiffanie Nguyen MATERIALS PLANNING MANAGER-QUALITY CONTROL ASSESSOR Unavailable Cesar Tavares MD Unavailable [phone] Joy Bob Unavailable Fanta Ran Augustine MD Primary Care Provider Tony Dumont MD Unavailable [phone] Shalini Segal MD Unavailable Stefanie Burns RN Unavailable UnavailFatemeh Briones RN Unavailable Unavailable Reason for Visit * Reason Onset Date Comments MEDICATION REFILL 02/19/2023 Encounter Details Date Type Department Care Team (Late st Contact Info) Description 02/19/2023 Refill [facility] [address] [place] [address] Tiffanie Nguyen MATERIALS PLANNING MANAGER-QUALITY CONTROL ASSESSOR [address] [place] [address] MEDICATION REFILL Social History Tobacco Use Types [...] st Contact Info) Description 08/26/2024 11:00 AM FIELD MARKETING LEAD Office Visit [facility] - Pulmonology [address] [place] [address], [place] [address] Andrew Francis MD [address] [place] [address] 2L DIV OF PULMONARY/[place] [address] documented as of this encounter Visit Diagnoses Diagnosis 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 documented in this encounter Care Teams Service Unit Operator Relationship Specialty Start Date End Date Ran Nuñez MD [address] [place] [address] PCP - General Family Medicine 08/30/21 Hillary Apple MD [address] [place] [address] Hematology and Oncology 03/17/19 Tony Dumont MD [address] [place] [address] Hematology and Oncology 03/17/19 Maryjo Reinoso, INSURANCE ASSOCIATE Patient Service Representative 03/17/19 Madyson Clay, PharmD 03/17/19 Dana Lala, MATERIALS PLANNING MANAGER-CURRICULUM DEVELOPMENT MANAGER [address] [facility] 2nd [place] [address] Oncology 03/17/19 Tiffanie Nguyen, MATERIALS PLANNING MANAGER-QUALITY CONTROL ASSESSOR [address] [facility] 2[place] [address] Family Medicine 03/17/19 Cesar Tavares MD [address] [place] [address] 2nd [place] [address] Referring Physician Medical Oncology 03/23/19 Joy Bob 09/22/19 Tony Dumont MD [address] [place] [id number] Hematology and Oncology 10/30/21 Shalini Segal MD [address] [place] [address] OF HEMATOLOGY & [place] [address] Title Assistant/Oncologist Hematology and Oncology 10/30/21 Stefanie Burns, RN Registered Nurse 10/30/21 Fatemeh Bolaños, RN Registered Nurse 10/30/21 documented as of this encounter
--- OUTSIDE RECORDS SUMMARY | 2024-08-18 00:21 | XMS_ITS | Encounter Summary ---
Author Organization [facility] Address [address] [place] [address] Care Team Providers Care Hat Conditioner Name Role Phone Hillary Apple MD Unavailable [phone] Tony Dumont MD Unavailable Maryjo ReinosoW Unavailable Unavailable Madyson Clay PharmD Unavailable UnavailDana Alcantar TAIL WORKER-RACK WORKER Unavailable [phone] Tiffanie Nguyen TAIL WORKER-APPLIQUE SEWER Unavailable Cesar Tavares MD Unavailable [phone] Joy Bob Unavailable Fanta Ran Augustine MD Primary Care Provider Tony Dumont MD Unavailable [phone] Shalini Segal MD Unavailable [phone] Stefanie Burns RN Unavailable UnavailFatemeh Briones RN Unavailable Unavailable Encounter Details Date Type Department Care Team (Latest Contact Info) Description 12/20/2021 2:35 PM CDT - 12/20/2021 11:59 PM CDT Hospital Encounter [facility] B[facility] CLINIC [address] [place] [address] Tiffanie Nguyen TAIL WORKER-APPLIQUE SEWER [address] [place] [id number] Keena Loving, assistive technology specialist Disposition: Home or Self Care Social History [...] Sign Reading Time Taken Comments Blood Pressure 120/81 12/20/2021 2:45 PM CDT Pulse 73 12/20/2021 2:45 PM CDT Temperature 36.6 ??C (97.9 ??F) 12/20/2021 2:45 PM CD T Respiratory Rate 20 12/20/2021 2:45 PM CDT Oxygen Saturation 99% 12/20/2021 2:45 PM CDT Inhaled Oxygen Concentration - - Weight 138.8 kg (306 lb 1.6 oz) 12/20/2021 2:45 PM CDT Height - - Body Mass Index 46.54 11/28/2021 8:55 AM CDT documented in this encounter Functional [...] TWICE DAILY 360 tablet 3 11/28/2020 02/19/2023 budesonide-formotero l (SYMBICORT) 160-4.5 MCG/ACT inhaler Inhale 2 (two) puffs by mouth 2 times daily 10.2 g 3 11/24/2021 03/21/2022 diclofenac sodium EC (VOLTAREN) 75 MG tablet TK 1 T PO BID PRF PAIN 06/05/202006/30 vitamin D3-cholecalciferol (CHOLECALCIFEROL) 25 MCG (1000 UNITS) tablet Take 2 (two) tablets by mouth once daily 180 tablet 3 11/03/2020 06/30/2022 documented as of this encounter Progress Notes * Keena Loving RN - 12/20/2021 4:24 PM CDT Fourth Covid vaccination given to right deltoid. Patient tolerated without complaint. Titers drawn.Patient to be called with followup on titers. documented in this encounter Plan of Treatment Upcoming Encounters Date Type Department Care Team (Late st Contact Info) Description 08/26/2024 11:00 AM WINDER HAND Office Visit [facility] - Pulmonology [address] [place] [address], [facility] [place] [phone] Andrew Francis MD [address] OF PULMONARY/[place] [address] documented as of this encounter Procedures Procedure Name Priority Date/Time Associated Diagnosis Comments STREP PNEUMO AB IGG 23 SEROTYPES PANEL Routine 12/20/2021 2:53 PM CDT S/P autologous bone marrow transplantation (HCC) HEPATITIS B SURFACE ANTIBODY QUANT Routine 12/20/2021 2:53 PM CDT S/P autologous bone marrow transplantation (HCC) HAEMOPHILUS INFLUENZAE B ANTIBODY Routine 12/20/2021 2:53 PM CDT S/P autologous bone marrow transplantation (HCC) documented in this encounter Results * HAEMOPHILUS INFLUENZAE B ANTIBODY (12/20/2021 2:53 PM CDT) [facility] Influenza B IgG Antibody 0.3 ug/mL 12/23/2021 7:27 AM CDT [facility] ([facility]) Comment: INTERPRETIVE INFORMATION: H. Influenzae b Ab, [...] developed and its performance characteristics determined by [facility]. It has not been cleared or approved by the US Food and Drug Administration. This test was performed in a CLIA certified laboratory and is intended for clinical purposes. Performed By: [facility] [employer] [address] [place] [address] Early Education Teacher: Clare Linda MD Blood BLOOD SPECIMEN / Unknown Venipuncture / Unknown 12/20/2021 2:53 PM CDT 12/20/2021 3:19 PM CDT Tiffanie Seymour Patrick TAIL WORKER-APPLIQUE SEWER LAB - CHEMISTRY ORDERABLES Performing Organization Address City/State/[facility] Co de Phone Number [facility]) [address] [place] [address] * STREP PNEUMO AB IGG 23 SEROTYPES PANEL (12/20/2021 2:53 PM CDT) Pneumococcal Serotype 1 Antibody IgG >7.56 ug/mL 12/25/2021 5:29 AM CDT [facility]) Pneumococcal Serotype 2 Antibody IgG 0.16 ug/mL 12/25/2021 5:29 AM CDT [facility]) Pneumococcal Serotype 3 Antibody IgG 11.43 ug/mL 12/25/2021 5:29 AM CDT [facility]) Pneumococcal Serotype 4 Antibody IgG >13.92 ug/mL 12/25/2021 5:29 AM CDT [facility]) Pneumococcal Serotype 5 Antibody IgG 5.13 ug/mL 12/25/2021 5:29 AM CDT [facility]) Pneumococcal Serotype 6B Antibody IgG 7.81 ug/mL 12/25/2021 5:29 AM CDT [facility] ([facility]) Pneumococcal Serotype 7F Antibody IgG 6.01 ug/mL 12/25/2021 5:29 AM CDT [facility]) Pneumococcal Serotype 8 Antibody IgG 0.42 ug/mL 12/25/2021 5:29 AM CDT [facility] ([facility]) Pneumococcal Serotype 9N Antibody IgG 3.22 ug/mL 12/25/2021 5:29 AM CDT [facility] ([facility]) Pneumococcal Serotype 9V Antibody IgG 4.04 ug/mL 12/25/2021 5:29 AM CDT [facility] ([facility]) Pneumococcal Serotype 10a Antibody IgG 0.04 ug/mL 12/25/2021 5:29 AM CDT [facility] ([facility]) Pneumococcal Serotype 11a Antibody IgG 0.58 ug/mL 12/25/2021 5:29 AM CDT [facility] ([facility]) Pneumococcal Serotype 12F Antibody IgG 0.07 ug/mL 12/25/2021 5:29 AM CDT [facility] ([facility]) Pneumococcal Serotype 14 Antibody IgG 0.22 ug/mL 12/25/2021 5:29 AM CDT [facility] ([facility]) Pneumococcal Serotype 15b Antibody IgG 0.32 ug/mL 12/25/2021 5:29 AM CDT [facility] ([facility]) Pneumococcal Serotype 17f Antibody IgG 0.22 ug/mL 12/25/2021 5:29 AM CDT [facility] ([facility]) Pneumococcal Serotype 18C Antibody IgG 4.69 ug/mL 12/25/2021 5:29 AM CDT [facility] ([facility]) Pneumococcal Serotype 19a Antibody IgG 0.87 ug/mL 12/25/2021 5:29 AM CDT [facility] ([facility]) Pneumococcal Serotype 19F Antibody IgG 35.66 ug/mL 12/25/2021 5:29 AM CDT [facility]) Pneumococcal Serotype 20 Antibody IgG 0.19 ug/mL 12/25/2021 5:29 AM CDT [facility] ([facility]) Pneumococcal Serotype 22f Antibody IgG 5.52 ug/mL 12/25/2021 5:29 AM CDT [facility] ([facility]) Pneumococcal Serotype 23F Antibody IgG 0.19 ug/mL 12/25/2021 5:29 AM CDT [facility] ([facility]) Pneumococcal Serotype 33f Antibody IgG 8.99 ug/mL 12/25/2021 5:29 AM CDT [facility] ([facility]) Interpretation Pneumococcal Serotype See Note 12/25/2021 5:29 AM CDT [facility] ([facility]) Comment: INTERPRETIVE INFORMATION: Streptococcus pneumoniae Antibodies, IgG [...] developed and its performance characteristics determined by [employer]. It has not been cleared or approved by the US Food and Drug Administration. This test was performed in a CLIA certified laboratory and is intended for clinical purposes. Performed By: [facility] [address] [place] [id number] Early Education Teacher: Clare Linda MD Blood BLOOD SPECIMEN / Unknown Venipuncture / Unknown 12/20/2021 2:53 PM CDT 12/20/2021 3:19 PM CDT Tiffanie Nguyen [facility] - CHEMISTRY ORDERABLES Performing Organization Address City/[facility]/ZIP Co de Phone Number [facility] [employer] [facility]) [address] [place] [address] * HEPATITIS B SURFACE ANTIBODY QUANT (12/20/2021 2:53 PM CDT) [facility] Hepatitis B Virus Surface Antibody 17.82 IU/L 12/22/2021 5:57 PM CDT [employer] [employer] ([facility]) Comment: The anti-HBs is greater than or [...] refer to MMWR July 26, 2005/Vol. 54(No. 16);1-23, and for healthcare workers refer to MMWR July 23, 2013/Vol. 62(No. 10);1-19. Reference Interval: anti-HBs 9.99 IU/L or less ....... Negative 10.00 IU/L or greater .... Positive Results greater than 1,000.00 IU/L are reported as greater than 1,000.00 IU/L. This assay should not be used for blood donor screening, associated re-entry protocols, or for screening Human Cell, Tissues and Cellular and Tissue-Based Products (HCT/P). Performed By: [facility] [address] [place] [address] Early Education Teacher: Clare Linda MD Blood BLOOD SPECIMEN / Unknown Venipuncture / Unknown 12/20/2021 2:53 PM CDT 12/20/2021 3:19 PM CDT Tiffanie Nguyen [facility] LAB - SEROLOGY ORDERABLES [employer] ([facility]) [address] documented in this encounter Visit Diagnoses Diagnosis S/P autologous bone marrow transplantation (HCC) Bone marrow replaced by transplant documented in this encounter Care Teams Hat Conditioner Relationship Specialty Start Date End Date Ran Nuñez MD [address] [place] [address] PCP - General Family Medicine 08/30/21 Hillary Apple MD [address] [place] [address] Hematology and Oncology 03/17/19 Tony Dumont MD [address] [place] [address] Hematology and Oncology 03/17/19 Maryjo Reinoso, SALES AND BUSINESS DEVELOPMENT MANAGER Wind Turbine Technician 03/17/19 Madyson Clay, PharmD 03/17/19 Dana Lala, TAIL WORKER-RACK WORKER [address] 2nd [place] [address] Oncology 03/17/19 Tiffanie Nguyen, TAIL WORKER-APPLIQUE SEWER [address] 2nd [place] [address] Family Medicine 03/17/19 Cesar Tavares MD [address] 2nd [place] [address] Referring Physician Medical Oncology 03/23/19 Joy Bob 09/22/19 Tony Dumont MD [address] [place] [address] Hematology and Oncology 10/30/21 Shalini Segal MD [address] [facility] OF HEMAT[facility] & [place] [address] Mangle Roll Operator/Oncologist Hematology and Oncology 10/30/21 Stefanie Burns, RN Registered Nurse 10/30/21 Fatemeh Bolaños, RN Registered Nurse 10/30/21 documented as of this encounter
--- OUTSIDE RECORDS SUMMARY | 2024-08-18 00:21 | XMS_ITS | Encounter Summary ---
Author Organization [facility] Address [address] [facility] [place] [address] Care Team Providers Care Associate Director Name Role Phone Hillary Apple MD Unavailable [phone] Tony Dumont MD Unavailable [phone] Maryjo ReinosoW Unavailable Unavailable Madyson Clay PharmD Unavailable Unavaila Dana Galicia SIDE LASTER STAPLE-CLERICAL ASSISTANT Unavailable [phone] Tiffanie Nguyen SIDE LASTER STAPLE-TOP INSTALLER Unavailable [phone] Cesar Tavares MD Unavailable [phone] Joy Bob Unavailable Fanta Ran Augustine MD Primary Care Provider Tony Dumont MD Unavailable [phone] Shalini Segal MD Unavailable Stefanie Burns RN Unavailable UnavailFatemeh Briones RN Unavailable Unavailable Encounter Details Date Type Department Care Team (Late st Contact Info) Description 01/15/2022 Telephone [facility] B[facility] CLINIC [address] [place] [address] Stefanie Burns, RN Social History [...] Telephone Encounter - Stefanie Burns RN - 01/15/2022 4:33 PM CDT Attempted to reach patient regarding scheduling MMR vaccine appointment. No answer; left voicemail requesting return call. documented in this encounter Plan of Treatment Upcoming Encounters Date Type Department Care Team (Late st Contact Info) Description 08/26/2024 11:00 AM MAIL HANDLER Office Visit [facility] - Pulmonology [address] [place] [address], [place] [address] Andrew Francis MD [address] [place] [address] 2[address] DIV OF PULMONARY/[place] [address] documented as of this encounter Visit Diagnoses Not on filedocumented in this encounter Care Teams Associate Director Relationship Specialty Start Date End Date Ran Nuñez MD [address] [place] [address] PCP - General Family Medicine 08/30/21 Hillary Apple MD [address] [place] [address] Hematology and Oncology 03/17/19 Tony Dumont MD [address] [place] [address] Hematology and Oncology 03/17/19 Maryjo Reinoso, [facility] Flow Manager 03/17/19 Madyson Clay, PharmD 03/17/19 Dana Lala, SIDE LASTER STAPLE-CLERICAL ASSISTANT [address] [facility] 2nd [place] [address] Oncology 03/17/19 Tiffanie Nguyen, SIDE LASTER STAPLE-TOP INSTALLER [facility] 2[place] [address] Family Medicine 03/17/19 Cesar Tavares MD [address] [place], [place] [address]TA [facility] 2[place] [address] Referring Physician Medical Oncology 03/23/19 Joy Bob 09/22/19 Tony Dumont MD [address] [place] [address] Hematology and Oncology 10/30/21 Shalini Segal MD [facility] OF [facility] [place] [address] Naphthol Soaping Machine Operator/Oncologist Hematology and Oncology 10/30/21 Stefanie Burns, RN Registered Nurse 10/30/21 Fatemeh Bolaños, RN Registered Nurse 10/30/21 documented as of this encounter
--- OUTSIDE RECORDS SUMMARY | 2024-08-18 00:21 | XMS_ITS | Encounter Summary ---
Author Organization [facility] Address [address] [facility] [place] [address] Care Team Providers Care Quarter Doper Name Role Phone Hillary Apple MD Unavailable [phone] Tony Dumont MD Unavailable [phone] Maryjo ReinosoW Unavailable Unavailable Madyson Clay PharmD Unavailable Unavaila Dana Galicia FORESTRY CONTRACTOR-OREMAN Unavailable [phone] Tiffanie Nguyen FORESTRY CONTRACTOR-SUPERVISOR LACE TEARING Unavailable Cesar Tavares MD Unavailable [phone] Joy Bob Unavailable Fanta Ran Augustine MD Primary Care Provider Tony Dumont MD Unavailable [phone] Shalini Segal MD Unavailable Stefanie Burns RN Unavailable UnavailFatemeh Briones RN Unavailable Unavailable Encounter Details Date Type Department Care Team (Late st Contact Info) Description 12/19/2021 Orders Only [facility] [address] [place] [address] Tiffanie Nguyen APRN-SUPERVISOR LACE TEARING [address] [place] [address] S/P autologous bone marrow transplantation (HCC) Social History Tobacco Use Types Packs/Day [...] st Contact Info) Description 08/26/2024 11:00 AM EDUCATIONAL TECHNOLOGY COORDINATOR Office Visit [facility] - Pulmonology [address] [place] [address], [place] [id number] Andrew Francis MD [address] [place] [address] DIV OF PULMONARY/[place] [address] documented as of this encounter Results * HAEMOPHILUS INFLUENZAE B ANTIBODY (12/20/2021 2:53 PM CDT) Influenza B IgG Antibody 0.3 ug/mL 12/23/2021 7:27 AM CDT [facility] ([facility]) Comment: INTERPRETIVE INFORMATION: H. Influenzae b Ab, [...] developed and its performance characteristics determined by [facility]. It has not been cleared or approved by the US Food and Drug Administration. This test was performed in a CLIA certified laboratory and is intended for clinical purposes. Performed By: [facility] [address] [place] [address] Banquet Lead: Clare Linda MD Blood BLOOD SPECIMEN / Unknown Venipuncture / Unknown 12/20/2021 2:53 PM CDT 12/20/2021 3:19 PM CDT Tiffanie Nguyen FORESTRY CONTRACTOR-SUPERVISOR LACE TEARING LAB - CHEMISTRY ORDERABLES Performing Organization Address City/State/[facility] Co de Phone Number [facility]) [address] * STREP PNEUMO AB IGG 23 SEROTYPES PANEL (12/20/2021 2:53 PM CDT) [facility] Pneumococcal Serotype 1 Antibody IgG >7.56 ug/mL 12/25/2021 5:29 AM CDT [facility]) Pneumococcal Serotype 2 Antibody IgG 0.16 ug/mL 12/25/2021 5:29 AM CDT [facility]) Pneumococcal Serotype 3 Antibody IgG 11.43 ug/mL 12/25/2021 5:29 AM CDT [facility] ([facility]) Pneumococcal Serotype 4 Antibody IgG >13.92 ug/mL 12/25/2021 5:29 AM CDT [facility] ([facility]) Pneumococcal Serotype 5 Antibody IgG 5.13 ug/mL 12/25/2021 5:29 AM CDT [facility] ([facility]) Pneumococcal Serotype 6B Antibody IgG 7.81 ug/mL 12/25/2021 5:29 AM CDT [facility] ([facility]) Pneumococcal Serotype 7F Antibody IgG 6.01 ug/mL 12/25/2021 5:29 AM CDT [facility] ([facility]) Pneumococcal Serotype 8 Antibody IgG 0.42 ug/mL 12/25/2021 5:29 AM CDT [facility] ([facility]) Pneumococcal Serotype 9N Antibody IgG 3.22 ug/mL 12/25/2021 5:29 AM CDT [facility] ([facility]) Pneumococcal Serotype 9V Antibody IgG 4.04 ug/mL 12/25/2021 5:29 AM CDT [facility] ([facility]) Pneumococcal Serotype 10a Antibody IgG 0.04 ug/mL 12/25/2021 5:29 AM CDT [facility] ([facility]) Pneumococcal Serotype 11a Antibody IgG 0.58 ug/mL 12/25/2021 5:29 AM CDT [facility] ([facility]) Pneumococcal Serotype 12F Antibody IgG 0.07 ug/mL 12/25/2021 5:29 AM CDT [facility] ([facility]) Pneumococcal Serotype 14 Antibody IgG 0.22 ug/mL 12/25/2021 5:29 AM CDT [facility]) Pneumococcal Serotype 15b Antibody IgG 0.32 ug/mL 12/25/2021 5:29 AM CDT [facility] ([facility]) Pneumococcal Serotype 17f Antibody IgG 0.22 ug/mL 12/25/2021 5:29 AM CDT [facility] ([facility]) Pneumococcal Serotype 18C Antibody IgG 4.69 ug/mL 12/25/2021 5:29 AM CDT [facility] ([facility]) Pneumococcal Serotype 19a Antibody IgG 0.87 ug/mL 12/25/2021 5:29 AM CDT [facility] ([facility]) Pneumococcal Serotype 19F Antibody IgG 35.66 ug/mL 12/25/2021 5:29 AM CDT [facility] ([facility]) Pneumococcal Serotype 20 Antibody IgG 0.19 ug/mL 12/25/2021 5:29 AM [facility] ([facility]) Pneumococcal Serotype 22f Antibody IgG 5.52 ug/mL 12/25/2021 5:29 AM [facility] ([facility]) Pneumococcal Serotype 23F Antibody IgG 0.19 ug/mL 12/25/2021 5:29 AM [facility] ([facility]) Pneumococcal Serotype 33f Antibody IgG 8.99 ug/mL 12/25/2021 5:29 AM [facility] ([facility]) Interpretation Pneumococcal Serotype See Note 12/25/2021 5:29 AM [facility] ([facility]) Comment: INTERPRETIVE INFORMATION: Streptococcus pneumoniae Antibodies, IgG [...] generally considered long-term protection(2). References: 1. Ashli TM, Ryan JW, Earnest X, HE, Dev HR. Multilaboratory assessment of threshold versus fold-change algorithms for minimizing analytical variability in multiplexed pneumococcal IgG measurements. Clin Vaccine Immunol. 2014;21(7):982-8. 2. Ashli TM, Dev HR. Use and Clinical Interpretation of Pneumococcal Antibody Measurements in the Evaluation of Humoral Immune Function. Clin Vaccine Immunol. 2015;22(2):148-152. This test was developed and its performance characteristics determined by [facility]. It has not been cleared or approved by the US Food and Drug Administration. This test was performed in a CLIA certified laboratory and is intended for clinical purposes. Performed By: [facility] [address] [place] [address] Banquet Lead: Clare Linda MD Blood BLOOD SPECIMEN / Unknown Venipuncture / Unknown 12/20/2021 2:53 PM CDT 12/20/2021 3:19 PM CDT Tiffanie Nguyen FORESTRY CONTRACTOR-SUPERVISOR LACE TEARING LAB - CHEMISTRY ORDERABLES [facility] ([facility]) [address] [place] [address] * HEPATITIS B SURFACE ANTIBODY QUANT (12/20/2021 2:53 PM CDT) [facility] Hepatitis B Virus Surface Antibody 17.82 IU/L 12/22/2021 5:57 PM CDT [facility] ([facility]) Comment: The anti-HBs is greater than or [...] Cellular and Tissue-Based Products (HCT/P). Performed By: [facility] [address] [place] [address] Banquet Lead: Clare Linda MD Blood BLOOD SPECIMEN / Unknown Venipuncture / Unknown 12/20/2021 2:53 PM CDT 12/20/2021 3:19 PM CDT Tiffanie Nguyen APRN-SUPERVISOR LACE TEARING LAB - SEROLOGY ORDERABLES [facility] ([facility]) [address] [place] [place] [id number], [facility] documented in this encounter Visit Diagnoses Diagnosis S/P autologous bone marrow transplantation (HCC)- Primary Bone marrow replaced by transplant documented in this encounter Care Teams Quarter Doper Relationship Specialty Start Date End Date Ran Nuñez MD [address] [place] [address] PCP - General Family Medicine 08/30/21 Hillary Apple MD [facility] [place] [address] Hematology and Oncology 03/17/19 Tony Dumont MD [address] [place] [address] Hematology and Oncology 03/17/19 Maryjo Reinoso, REYNA Design Transferrer 03/17/19 Madyson Clay, PharmD 03/17/19 Dana Lala APRN-OREMAN [address] [facility] [address] [address] Oncology 03/17/19 Tiffanie Nguyen APRN-SUPERVISOR LACE TEARING [address] [facility] [address] [place] [address] Family Medicine 03/17/19 Cesar Tavares MD [address] [facility] [address] [place] [address] Referring Physician Medical Oncology 03/23/19 Joy Bob 09/22/19 Tony Dumont MD [address] [place] [id number] Hematology and Oncology 10/30/21 Shalini Segal MD [address] [facility] [place] [address] Bridge Manager/Oncologist Hematology and Oncology 10/30/21 Stefanie Burns, ROSEMARY Registered Nurse 10/30/21 Fatemeh Bolaños, RN Registered Nurse 10/30/21 documented as of this encounter
--- OUTSIDE RECORDS SUMMARY | 2024-08-18 00:21 | XMS_ITS | Encounter Summary ---
Author Organization [facility] Address [address] [facility] [place] [address] Care Team Providers Care Blast Furnace Keeper Name Role Phone Hillary Apple MD Unavailable [phone] Tony Dumont MD Unavailable [phone] Maryjo ReinosoW Unavailable Unavailable Madyson Clay PharmD Unavailable Unavaila Dana Galicia INSTANT PRINT OPERATOR-AUTOMATIC TRANSMISSION MECHANIC Unavailable [phone] Tiffanie Nguyen INSTANT PRINT OPERATOR-SENIOR PROGRAMMER Unavailable [phone] Cesar Tavares MD Unavailable [phone] Joy Bob Unavailable Fanta Ran Augustine MD Primary Care Provider Tony Dumont MD Unavailable [phone] Shalini Segal MD Unavailable [phone] Stefanie Burns RN Unavailable UnavailFatemeh Briones RN Unavailable Unavailable Reason for Visit * Procedure (Routine) - Closed Specialty Diagnoses / Procedures Referred By Contjohn t Referred To Contact Sleep Center Diagnoses LISSA (obstructive sleep apnea) Sleep related hypoxia Procedures PROC POLYSOMNOGRAPHY,THERAPEUT IC FULL NIGHT Tacos Ramos MD [address] [facility] 1ST [place] [address] Aff Michelleu Lynette [address] [place] [address] Referral ID Status Reason Start Date Expiration Date Visits Re quested Visits Authorized [id number] Closed 05/17/2022 05/17/2023 1 1 Encounter Details Date Type Department Care Team (Latest Contact Info) Description 10/30/2022 8:30 PM CDT Procedure visit [facility] Sleep Disorder [place] [address] [place] [address] Obesity (BMI 30-39.9) ; LISSA (obstructive sleep apnea); Sleep related hypoxia Social History Tobacco Use Types Packs/Day Years Used Date Smoking Tobacco: Former Cigarettes 0.5 18 1 4 - 2001 Smokeless Tobacco: Former Chew Quit: [...] Progress Notes * Tacos Ramos MD - 11/25/2022 3:46 PM CDT [facility] Sleep Disorders [facility], First Floor [address] [facility] [place] [address] Telephone : [phone] Medical Records OXYGEN PRESCRIPTION Patient Name: Marcello Guillen Date of : 1970 Date of Order: 11/25/2022 Age: [age] year old Sex: male Diagnosis: [x] Obstructive sleep apnea [x] Sleep-related hypoxemia due to: [] Sleep-related hypoventilation due to: [] Comorbidities: [] Pulmonary hypertension Prescription: [x] Oxygen flow rate During sleep = __5___ L/min side flow [x] via BPAP Auto [] Overnight oximetry on above settings Tacos Ramos MD, [facility], [facility] (NPI#[id number]) Group Sales Coordinator, [facility] Sleep Disorders [place] Professor of Internal Medicine Adjunct [employer] Division of Pulmonary, Critical Care, and Sleep Medicine [facility] * Tacos Ramos MD - 11/25/2022 3:44 PM CDT [facility] Sleep Disorders [facility], First Floor [address] [place] [address] Telephone : [phone] or Medical Records BILEVEL POSITIVE AIRWAY PRESSURE (BPAP AUTO) PRESCRIPTION Patient Name: Marcello Guillen Date of :1970 Date of Order: 11/25/2022 Age: [age] year old Sex: male Diagnosis: [x] Obstructive sleep apnea [x] Sleep-related hypoxemia disorder [] Sleep-related hypoventilation due to: [] obesity hypoventilation syndrome [] obstructive lung disease [] restrictive lung disease [] neuromuscular disease [] Chronic hypercapnic respiratory failure due to: BPAP Auto Settings: EPAP = 12 cmH2O Minimum pressure support = 10 cmH2O Maximum pressure support = 13 cmH2O Maximum IPAP = 25 cmH2O [x] Oxygen side flow = 5 L/min [] Overnight oximetry on above settings Interface: Brand: [] nasal pillows [] nasal cushion [] nasal mask [x] full-face mask - Airfit F20 medium [] nasal pillows [] fit for mask [x] Humidifier: [x] heated [x] Heated tubing [] Chinstrap [x] Other necessary positive airway pressure therapy supplies (e.g., filters, etc.) Tacos Ramos MD, [facility], [facility], [facility] (NPI# [id number]) Group Sales Coordinator, [facility] Sleep Disorders [place] Professor of Internal Medicine Adjunct [employer] [address] [employer] [facility] Division of Pulmonary, Critical Care, and Sleep Medicine [facility] This note was electronically signed on 11/25/2022. * Tacos Ramos MD - 11/25/2022 3:30 PM CDT [facility] Sleep Disorders [place] Accredited by the [place] [employer] [facility], First Floor [address] [place] [address] Telephone : [phone] Medical Records Patient Name: Marcello Guillen : 1970 Date of Study: 10/30/2022 Referring Physician: Tacos Ramos MD Type of Montage: Respiratory Scoring System: [facility] FULL NIGHT THERAPEUTIC POLYSOMNOGRAM INTERPRETATION (10/30/2022) Procedure: The polysomnogram was performed with a nuclear cardiology technologist in attendance. Central, occipital, and temporal EEG, EOG, submentalis, EMG, airflow via positive airway pressure, thoracoabdominal motion, anterior tibialis EMG, snore sensor, and pulse oximetry were monitored. Sleep stages, periodic limb mov ements, and EEG arousals were scored in 30-second [...] mg) / 24 hours., Disp: , Rfl: ??? acyclovir (ZOVIRAX) 400 MG tablet, TAKE 2 TABLETS BY MOUTH TWICE DAILY, Disp: 360 tablet, Rfl: 3 ??? albuterol HFA (PROVENTIL;VENTOLIN;PROAIR) 108 (90 Base) MCG/ACT inhaler, Inhale 2 puffs by mouth every 4 hours, Disp: , Rfl: ??? benzonatate (Tessalon) 200 MG capsule, Take 1 (one) capsule by mouth 3 times daily as needed for Cough, Disp: 30 capsule, Rfl: 0 ??? clonazePAM (KLONOPIN) 1 MG tablet, Take 1 (one) tablet by mouth at bedtime, Disp: 30 tablet, Rfl: 0 ??? escitalopram (LEXAPRO) 20 MG tablet, TAKE 1 TABLET BY MOUTH EVERY DAY, Disp: 30 tablet, Rfl: 11 ??? HYDROcodone-acetaminophen (NORCO) 5-325 MG tablet, Take [...] Syndrome, Disp: 90 tablet, Rfl: 3 ??? Symbicort 160-4.5 MCG/ACT inhaler, , Disp: , Rfl: THERAPEUTIC STUDY Sleep Architecture: During this therapeutic study, the patient slept for 334.5 minutes and had normal sleep efficiency of 82.6%. The patient's initial sleep latency was reduced at 5.5 minutes. The initial REM latency was prolonged at 172.5 minutes. The sleep architecture was as follows: stage N1: 20.2%; stage N2: 34.1%; stage N3: 9.4%; stage REM:36.3%. Respiratory Analysis, Oximetry Data, and Snoring Profile: Continuous positive airway pressure (CPAP) was titrated from a minimum setting of 8 cmH2O to a maximum setting of 14 cmH2O. CPAP at the maximal level of 14 cmH2O was associated with an increased overall apnea-hypopnea index of 5.7 per hour and an increased respiratory-related arousal index of 5.7 per hour. The patient had a very high air leak up to 101 L/min on CPAP of 14 cmH2O. The patient was then shifted to bilevel positive airway pressure (BPAP) due to persistently low oxygen saturation on CPAP. BPAP was titrated from a minimum setting of EPAP 4 cmH2O and IPAP of 8 gsI5Czr a maximum setting of EPAP 12 cmH2O and IPAP of 22 cmH2O. BPAP at the maximal level of EPAP of 33xdY4L and IPAP of 22 cmH2O was associated with a normal overall apnea-hypopnea index (AHI) of 1.1 per hour and a mildly increased respiratory-related arousal index of 6.4 per hour. The patient had persistently low oxygen saturation on BPAP so he was switched back to CPAP but now with oxygen side flow. CPAP was titrated from a minimum of 8 cmH2O to a maximum of 10 cmH2O while oxygen side flow was titrated from a minimum of 1 L/min to a maximum of 5 L/min via CPAP. CPAP at the maximum setting of 10 cmH2O plus oxygen at 5 L/min side flow was associated with a normal AHI of 1.4per hour and an increased RERA index of 28.8 per hour. The patient had a decreased minimum oxygen saturation of 82% during REM sleep and a decreased minimum oxygen saturation of 82% during non-REM sleep. The time spent with oxygen saturation less [...] within normal limits at 10.7 per hour. There was no epileptiform activity during sleep. Cardiac profile: EKG showed normal sinus rhythm. No clinically significant arrhythmia was noted. Parasomnia Profile: No parasomnia was noted during this therapeutic study. IMPRESSION: 1. CPAP at the maximal setting of 14 cmH2O was partially effective in ameliorating obstructive sleep apnea but was associated with persistent sleep- related hypoxemia 2. BPAP at the maximal setting of EPAP of 12 cmH2O and IPAP cmH2O of 22 was effective in ameliorating obstructive apneas and hypopneas but was associated with persistence of a few respiratory effort-related arousals (RERA) and sleep- related hypoxemia 3. CPAP at 10 cmH2O plus oxygen at 5 L/min side flow was effective in ameliorating obstructive apneas and hypopneas but was associated with persistence of respiratory effort-related arousals (RERAs). RECOMMENDATIONS: 1. Suggest bilevel positive airway pressure (BPAP) plus oxygen side flow therapeutic trial. 2. Evaluate for causes of sleep-related hypoxemia disorder (e.g., hypoventilation, ventilation-perfusion mismatch, deadspace, shunt, diffusion abnormality, etc.). Tacos Ramos MD, [facility], [facility], [facility] Group Sales Coordinator, [facility] Professor of Internal Medicine Adjunct [employer] Division of Pulmonary, Critical Care, and Sleep Medicine [facility] This note was electronically signed on 11/25/2022. CC: Tacos Ramos MD [address] [place] [address] Ran Nuñez MD documented in this encounter Procedure Notes * Tacos Ramos MD - 11/25/2022 3:44 PM CDTAssociated Order(s): PROC POLYSOMNOGRAPHY,THERAPEUTIC FULL NIGHT Procedure(s): SC POLYSOM 6/>YRS CPAP 4/> PARM Pre-Procedure Diagnose(s): LISSA (obstructive sleep apnea); Sleep related hypoxia Post-Procedure Diagnose(s): LISSA (obstructive sleep apnea); Sleep related hypoxia [facility] Accredited by the [place] [employer] Medicine [facility], First Floor [address] [place] [address]. [place] [address] Telephone : [phone] Medical Records Patient Name: Marcello Guillen : 1970 Date of Study: 10/30/2022 Referring Physician: Tacos Ramos MD Type of Montage: Respiratory Scoring System: [facility] FULL NIGHT THERAPEUTIC POLYSOMNOGRAM INTERPRETATION (10/30/2022) Procedure: The polysomnogram was performed with a nuclear cardiology technologist in attendance. Central, occipital, and temporal EEG, EOG, submentalis, EMG, airflow via positive airway pressure, thoracoabdominal motion, anterior tibialis EMG, snore sensor, and pulse oximetry were monitored. Sleep stages, periodic limb mov ements, and EEG arousals were scored in 30-second [...] mg) / 24 hours., Disp: , Rfl: ??? acyclovir (ZOVIRAX) 400 MG tablet, TAKE 2 TABLETS BY MOUTH TWICE DAILY, Disp: 360 tablet, Rfl: 3 ??? albuterol HFA (PROVENTIL;VENTOLIN;PROAIR) 108 (90 Base) MCG/ACT inhaler, Inhale 2 puffs by mouth every 4 hours, Disp: , Rfl: ??? benzonatate (Tessalon) 200 MG capsule, Take 1 (one) capsule by mouth 3 times daily as needed for Cough, Disp: 30 capsule, Rfl: 0 ??? clonazePAM (KLONOPIN) 1 MG tablet, Take 1 (one) tablet by mouth at bedtime, Disp: 30 tablet, Rfl: 0 ??? escitalopram (LEXAPRO) 20 MG tablet, TAKE 1 TABLET BY MOUTH EVERY DAY, Disp: 30 tablet, Rfl: 11 ??? HYDROcodone-acetaminophen (NORCO) 5-325 MG tablet, Take [...] Syndrome, Disp: 90 tablet, Rfl: 3 ??? Symbicort 160-4.5 MCG/ACT inhaler, , Disp: , Rfl: THERAPEUTIC STUDY Sleep Architecture: During this therapeutic study, the patient slept for 334.5 minutes and had normal sleep efficiency of 82.6%. The patient's initial sleep latency was reduced at 5.5 minutes. The initial REM latency was prolonged at 172.5 minutes. The sleep architecture was as follows: stage N1: 20.2%; stage N2: 34.1%; stage N3: 9.4%; stage REM:36.3%. Respiratory Analysis, Oximetry Data, and Snoring Profile: Continuous positive airway pressure (CPAP) was titrated from a minimum setting of 8 cmH2O to a maximum setting of 14 cmH2O. CPAP at the maximal level of 14 cmH2O was associated with an increased overall apnea-hypopnea index of 5.7 per hour and an increased respiratory-related arousal index of 5.7 per hour. The patient had a very high air leak up to 101 L/min on CPAP of 14 cmH2O. The patient was then shifted to bilevel positive airway pressure (BPAP) due to persistently low oxygen saturation on CPAP. BPAP was titrated from a minimum setting of EPAP 4 cmH2O and IPAP of 8 evY5Wsp a maximum setting of EPAP 12 cmH2O and IPAP of 22 cmH2O. BPAP at the maximal level of EPAP of 16owP2N and IPAP of 22 cmH2O was associated with a normal overall apnea-hypopnea index (AHI) of 1.1 per hour and a mildly increased respiratory-related arousal index of 6.4 per hour. The patient had persistently low oxygen saturation on BPAP so he was switched back to CPAP but now with oxygen side flow. CPAP was titrated from a minimum of 8 cmH2O to a maximum of 10 cmH2O while oxygen side flow was titrated from a minimum of 1 L/min to a maximum of 5 L/min via CPAP. CPAP at the maximum setting of 10 cmH2O plus oxygen at 5 L/min side flow was associated with a normal AHI of 1.4per hour and an increased RERA index of 28.8 per hour. The patient had a decreased minimum oxygen saturation of 82% during REM sleep and a decreased minimum oxygen saturation of 82% during non-REM sleep. The time spent with oxygen saturation less [...] within normal limits at 10.7 per hour. There was no epileptiform activity during sleep. Cardiac profile: EKG showed normal sinus rhythm. No clinically significant arrhythmia was noted. Parasomnia Profile: No parasomnia was noted during this therapeutic study. IMPRESSION: 1. CPAP at the maximal setting of 14 cmH2O was partially effective in ameliorating obstructive sleep apnea but was associated with persistent sleep- related hypoxemia 2. BPAP at the maximal setting of EPAP of 12 cmH2O and IPAP cmH2O of 22 was effective in ameliorating obstructive apneas and hypopneas but was associated with persistence of a few respiratory effort-related arousals (RERA) and sleep- related hypoxemia 3. CPAP at 10 cmH2O plus oxygen at 5 L/min side flow was effective in ameliorating obstructive apneas and hypopneas but was associated with persistence of respiratory effort-related arousals (RERAs). RECOMMENDATIONS: 1. Suggest bilevel positive airway pressure (BPAP) plus oxygen side flow therapeutic trial. 2. Evaluate for causes of sleep-related hypoxemia disorder (e.g., hypoventilation, ventilation-perfusion mismatch, deadspace, shunt, diffusion abnormality, etc.). Tacos Ramos MD, [facility], [facility], [facility] Group Sales Coordinator, [facility] Professor of Internal Medicine Adjunct [address] [employer]rology Division of Pulmonary, Critical Care, and Sleep Medicine [facility] This note was electronically signed on 11/25/2022. CC: Tacos Ramos MD [address] [address] Ran Nuñez MD documented in this encounter Plan of Treatment Upcoming Encounters Date Type Department Care Team (Late st Contact Info) Description 08/26/2024 11:00 AM FREELANCE DIRECTOR Office Visit [facility] - Pulmonology [facility] [facility] [place] [id number] Andrew Francis MD [address] OF PULMONARY/[place] [address] documented as of this encounter Procedures Procedure Name Priority Date/Time Associated Diagnosis Comments SC POLYSOM 6/>YRS CPAP 4/> PARM Routine 11/25/2022 3:44 PM CDT LISSA (obstructive sleep apnea) Sleep related hypoxia documented in this encounter Results * SC POLYSOM 6/>YRS CPAP 4/> PARM (11/25/2022 3:44 PM CDT) Narrative Tacos Ramos MD - 11/25/2022 3:44 PM CDT Tacos Ramos MD ? 11/25/2022 ??3:51 PM [facility] Accredited by the [place] [employer] Medicine [facility], First Floor [address] [place] [address] Telephone : [phone] ? Medical Records Patient Name: ??Marcello Guillen : ??1970 Date of Study: ??10/30/2022 Referring Physician: ??Tacos Ramos MD Type of Montage: ??Respiratory Scoring System: ??[facility] FULL NIGHT THERAPEUTIC POLYSOMNOGRAM INTERPRETATION (10/30/2022) Procedure: The polysomnogram was performed with a nuclear cardiology technologist in attendance. ??Central, occipital, and temporal [...] diffusion abnormality, etc.). Tacos Gómez. ??MD Richard, [facility], [facility], [facility] Group Sales Coordinator, [facility] Professor of Internal Medicine Adjunct [employer] [address] [employer] Neurology Division of Pulmonary, Critical Care, and Sleep Medicine [facility] This note was electronically signed on 11/25/2022. CC: ??Tacos Ramos MD [address], ??[place] [address] Ran Nuñez MD Tacos Ramos MD PROCEDURE/MINOR PRIMO GICAL ORDERABLES documented in this encounter Visit Diagnoses Diagnosis Obesity (BMI 30-39.9)- Primary Obesity, unspecified LISSA (obstructive sleep apnea) Obstructive sleep apnea (adult) (pediatric) Sleep related hypoxia Idiopathic sleep related nonobstructive alveolar hypoventilation documented in this encounter Care Teams Blast Furnace Keeper Relationship Specialty Start Date End Date Ran Nuñez MD [address] [place] [address] PCP - General Family Medicine 08/30/21 Hillary Apple MD [address] [place] [address] Hematology and Oncology 03/17/19 Tony Dumont MD [address] [place] [address] Hematology and Oncology 03/17/19 Maryjo Reinoso, DIAMOND DRILLER Preparation Room Manager 03/17/19 Madyson Clay, PharmD 03/17/19 Dana Lala, INSTANT PRINT OPERATOR-AUTOMATIC TRANSMISSION MECHANIC [address] [facility] 2[place] [address] Oncology 03/17/19 Tiffanie Nguyen, INSTANT PRINT OPERATOR-SENIOR PROGRAMMER [address] [facility] 2nd [place] [address] Family Medicine 03/17/19 Cesar Tavares MD [facility] 2nd [place] [address] Referring Physician Medical Oncology 03/23/19 Joy Bob 09/22/19 Tony Dumont MD [address] [place] [phone] Hematology and Oncology 10/30/21 Shalini Segal MD [address] [place] [address] OF HEMATOLOGY & [place]ICAL [place] [address] Tile Shader/Oncologist Hematology and Oncology 10/30/21 Stefanie Burns, RN Registered Nurse 10/30/21 Fatemeh Bolaños, RN Registered Nurse 10/30/21 documented as of this encounter
--- OUTSIDE RECORDS SUMMARY | 2024-08-18 00:22 | XMS_ITS | Encounter Summary ---
Author Organization [facility] Address [address] [facility] [place] [address] Care Team Providers Care Erp Implementation Consultant Name Role Phone Hillary Apple MD Unavailable [phone] Bill Ferrera MD Unavailable [phone] Tony Dumont MD Unavailable [phone] Maryjo Reinoso [facility] Unavailable Unavailable Madyson Clay PharmD Unavailable Unavaila Dana Galicia CUSHION PADDER-PR INTERN Unavailable [phone] Tiffanie Nguyen CUSHION PADDER-HIGH RIGGER Unavailable [phone] Stephanie Mahoney RN Unavailable Unavailable Alycia Galvan RN Unavailable UnavailCesar Allen MD Unavailable [phone] Karie Jones RN Unavailable Unavailable Joy Bob Unavailable Fanta Addison Weinstein PharmD Unavailable Unavailab Alida Chang CUSHION PADDER-HIGH RIGGER Primary Care Provider Reason for Visit * Reason Onset Date Comments MEDICATION REFILL 08/15/2021 Encounter Details Date Type Department Care Team (Late st Contact Info) Description 08/15/2021 Refill [facility] [address] [place] [address] Hillary Apple MD [address] [facility] OF HEMATOLOGY & [place] [address] MEDICATION REFILL Social History Tobacco Use Types [...] st Contact Info) Description 08/26/2024 11:00 AM BIOPROCESS DEVELOPMENT ENGINEER Office Visit [facility] - Pulmonology [address] [facility], [place] [address] Andrew Francis MD [address] [facility] 2L DIV OF PULMONARY/[place] [address] documented as of this encounter Visit Diagnoses Not on filedocumented in this encounter Care Teams Erp Implementation Consultant Relationship Specialty Start Date End Date Alida Marshall, JOSE DAVID-HIGH RIGGER [address] [facility] DIV OF HEMATOLOGY & [place] [address] PCP - General Family Medicine 12/23/20 08/29/21 Hillary Apple MD [facility] [place] [address] Hematology and Oncology 03/17/19 Bill Ferrera MD [address] [place] [address] Hematology and Oncology 03/17/19 08/27/21 Tony Dumont MD [address] [place] [address] Hematology and Oncology 03/17/19 Maryjo Reinoso, DIRECTOR OF EARLY CHILDHOOD EDUCATION Crimping Machine Operator 03/17/19 Madyson Clay, PharmD 03/17/19 Dana Lala, CUSHION PADDER-PR INTERN [address] [facility] 2nd [place] [address] Oncology 03/17/19 Tiffanie Nguyen, CUSHION PADDER-HIGH RIGGER [address] [place] [address] Family Medicine 03/17/19 Stephanie Mahoney, RN Registered Nurse 03/17/19 10/29/21 Alycia Galvan, ROSEMARY 03/17/19 10/29/21 Cesar Tavares MD Referring Physician Medical Oncology 03/23/19 Karie Jones, RN Registered Nurse 06/08/19 10/29/21 Joy Bob 09/22/19 Addison Shea, PharmD Pharmacist 09/22/19 10/29/21 documented as of this encounter
--- OUTSIDE RECORDS SUMMARY | 2024-08-18 00:22 | XMS_ITS | Encounter Summary ---
Author Organization [facility] Address [address] [place] [address] Care Team Providers Care Secondary History Teacher Name Role Phone Hillary Apple MD Unavailable [phone] Tony Dumont MD Unavailable Maryjo Reinoso LCSW Unavailable Unavailable Madyson Clay PharmD Unavailable Unavaila Dana Galicia FARMWORKER FUR-GAME PROTECTOR Unavailable [phone] Tiffanie Nguyen FARMWORKER FUR-RADIOPHONE OPERATOR Unavailable Cesar Tavares MD Unavailable [phone] Joy Bbo Unavailable Fanta Ran Augustine MD Primary Care Provider Tony Dumont MD Unavailable [phone] Shalini Segal MD Unavailable Stefanie Burns RN Unavailable UnavailFatemeh Briones RN Unavailable Unavailable Reason for Referral * Radiology Services (Routine) - Closed Specialty Diagnoses / Procedures Referred By Contac t Referred To Contact Echosonography Diagnoses COVID-19 long hauler manifesting chronic dyspnea HFrEF (heart failure with reduced ejection fraction) (HCC) Procedures ECHO COMPLETE W BUBBLE STUDY Andrew Francis MD [address] 2L DIV OF PULMONARY/[place] [address] [facility] [address] [facility], [address] [place] [address] Referral ID Status Reason Start Date Expiration Date Visits Re quested Visits Authorized [id number] Closed 11/22/2021 11/22/2022 1 1 Encounter Details Date Type Department Care Team (Late st Contact Info) Description 11/22/2021 9:00 AM CDT Office Visit [facility] [address] [facility], [place] [phone] Andrew Francis MD [address] [facility] 2L DIV OF PULMONARY/[place] [address] COVID-19 long hauler manifesting chronic dyspnea (Primary Dx); Moderate persistent asthma without complication (HCC); LISSA (obstructive sleep apnea); Bronchiectasis without complication (HCC); HFrEF (heart failure with reduced ejection fraction) (HCC); Incisional hernia, without obstruction or gangrene Social History Tobacco Use Types Packs/Day Years [...] Sign Reading Time Taken Comments Blood Pressure 128/88 11/22/2021 9:17 AM CDT Pulse 81 11/22/2021 9:17 AM CDT Temperature - - Respiratory Rate 24 11/22/2021 9:17 AM CDT Oxygen Saturation 99% 11/22/2021 9:17 AM CDT 4l nc Inhaled Oxygen Concentration - - Weight 138.3 kg (305 lb) 11/22/2021 9:17 AM CDT Height - - Body Mass Index 47.77 04/21/2021 11:32 AM CDT documented in this encounter Functional [...] as of this encounter Progress Notes * Moon Nance MD - 11/22/2021 9:08 AM CDT Division of Pulmonary, Critical Care, and Sleep Medicine Patient's Name: Marcello Guillen Date of : 1970 Date of Visit: 11/22/2021 This is a 51 year old male, who was referred to the Pulmonary Clinic for dyspnea HPI: is a 51 year old male with PMHx significant for childhood asthma, h/o tobacco use ( 10 years -quit in 2021), h/o marijuana smoking, non hodgkin lymphoma, s/p autologous SCT in October,,s/p splenectomy, h/o prolonged COVID course ( diagnosed in January 2020, hospitalized from February through April 2020 and then eventually tested negative in December 2020) presenting for a follow up today. Reports good days and bad days. Shortness of breath is worse on cold days. Able to ambulate within the house and around the house without oxygen. Reports fatigue with exertion predominantly than shortness of breath. C/o dry cough. C/o difficulty expectorating. C/o wheezing. C/o running nose and noticed some blood streaked nasal discharge this AM. Does note desaturation with exertion when he goes out and about. C/o lightheadedness, dizziness when picking stuff up from the floor. Current symptoms: Cough- As described above. Hemoptysis- no. Shortness of breath- As described above. Allergic rhinitis- Yes Post nasal drip- no GERD- No Chest pain- no Palpitations- No Weight loss- no Exercise capacity: On level ground- about 2-3 blocks Flights of stairs- 1 Current respiratory medications: Symbicort 160/4.5 2 puffs twice daily., Albuterol inhaler - 2 puffs as needed. Using it up to 2-3 times a day when he goes out. Not needingit to use it when at home. Last seen: 08/31/21- Repeat PFTs, oxygen desaturation study, and overnight oximetry ordered. Referred to pulmonary rehab. Last ED/UC visit: None recently. Past Medical History: Diagnosis Date ??? Acute respiratory failure with hypoxia ??? Asthma 12/03/2017 ??? B-cell lymphoma 04/18/2017 ??? Diverticulosis ??? DLBCL (diffuse large B cell lymphoma) 05/24/2019 ??? Fever 02/25/2020 ??? GERD (gastroesophageal reflux disease) taking prevacid prn ??? Ground glass opacity present on imaging of lung ??? H/O echocardiogram 08/11/2019 ??? History of marijuana use 06/28/2019 ??? Hypoxemia 02/19/2021 ??? Lymphadenopathy 04/11/2017 ??? Lymphoma of lymph nodes ??? Multiple body piercings facial ??? Pneumonia due to COVID-19 virus ??? Port-A-Cath in place right subclavian ??? S/P splenectomy 09/09/2019 ??? Sleep apnea not using CPAP ??? 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 Stem cells transplant status ??? Transient alteration of awareness 2018 during knee arthroplasty(single incident) Current Outpatient Medications: ??? acetaminophen (TYLENOL) 325 MG tablet, Take 1 tablet by mouth every 4 hours as needed Maximum allowable Acetaminophen amount = 4 Grams (4000 mg) / 24 hours. (Patient not taking: No sig reported),Disp: , Rfl: ??? acyclovir (ZOVIRAX) 400 MG tablet, TAKE 2 TABLETS BY MOUTH TWICE DAILY, Disp: 360 tablet, Rfl: 3 ??? albuterol HFA (PROVENTIL;VENTOLIN;PROAIR) 108 (90 Base) MCG/ACT inhaler, Inhale 2 puffs by mouth every 4 hours, Disp: , Rfl: ??? albuterol HFA (PROVENTIL;VENTOLIN;PROAIR) 108 (90 Base) MCG/ACT inhaler, Inhale 2 (two) puffs by mouth every 6 hours as needed for Wheezing Reasons: Asthma, Disp: 18 g, Rfl: 0 ??? budesonide-formoterol (SYMBICORT) 160-4.5 MCG/ACT inhaler, Inhale 2 (two) puffs by mouth 2 times daily, Disp: 10.2 g, Rfl: 3 ??? clonazePAM (KLONOPIN) 1 MG tablet, Take 1 (one) tablet by mouth at bedtime, Disp: 30 tablet, Rfl: 0 ??? diclofenac sodium EC (VOLTAREN) 75 MG tablet, TK 1 T PO BID PRF PAIN, Disp: , Rfl: ??? escitalopram (LEXAPRO) 20 MG tablet, TAKE 1 TABLET BY MOUTH EVERY DAY, Disp: 30 tablet, Rfl: 11 ??? fluticasone propionate (FLONASE) 50 MCG/ACT nasal spray, 2 SPRAYS IN EACH NOSTRIL Q DAY, Disp: , Rfl: ??? HYDROcodone-acetaminophen (NORCO) 5-325 MG tablet, Take 1 tablet by mouth every 6 hours as needed for Pain, Disp: , Rfl: ??? multivitamin daily tablet, Take 1 tablet by mouth daily with food, Disp: , Rfl: ??? ondansetron, disintegrating, (ZOFRAN ODT) 8 MG tablet, Dissolve 1 tablet on top of tongue then swallow with saliva every 8 hours as needed for nausea or vomiting (Patient not taking: No sig reported), Disp: , Rfl: ??? oxyCODONE, immediate release, (ROXICODONE) 5 MG tablet, Take 1 (one) tablet by mouth every 12 hours as needed for Pain (Patient not taking: Reported on 11/22/2021), Disp: 15 tablet, Rfl: 0 ??? penicillin V potassium (VEETIDS) 250 MG tablet, Take 1 (one) tablet by mouth 2 times daily, Disp: 60 tablet, Rfl: 11 ??? prochlorperazine (COMPAZINE) 10 MG tablet, Take 10 mg by mouth every 6 hours as needed (Patientnot taking: No sig reported), Disp: , Rfl: ??? rOPINIRole (REQUIP) 0.25 MG tablet, Take 1 (one) tablet by mouth at bedtime Reasons: Restless Leg Syndrome, Disp: 90 tablet, Rfl: 3 ??? saline nasal spray (OCEAN; BABY AYR) 0.65 % nasal spray, Munith 2 sprays into each nostril every2 hours as needed for Dry Nose, Disp: , Rfl: ??? vitamin D3-cholecalciferol (CHOLECALCIFEROL) 25 MCG (1000 UNITS) tablet, Take 2 (two) tablets by mouth once daily, Disp: 180 tablet, Rfl: 3 Allergies Allergen Reactions ??? Adhesive Sensitivity Urticaria and Other Electrodes -- welps where stickers are Also, use paper tape Family History Family history unknown: Yes Social History Socioeconomic History ??? Marital status: Tobacco Use ??? Smoking status: Former Smoker Packs/day: 0.50 Types: Cigarettes Start date: 1983 Quit date: 2001 Years since quittin.3 ??? Smokeless tobacco: Former User Types: Chew Quit date: 2016 Vaping Use ??? Vaping Use: Some days ??? Start date: 08/04/2018 ??? Last attempt to quit: 10/12/2018 Substance and Sexual Activity ??? Alcohol use: Not Currently ??? Drug use: Not Currently Frequency: 21.0 times per week Types: Marijuana Comment: none in past month Immunization History Administered Date(s) Administered ??? DTAP 5 PERTUSSIS ANTIGENS 07/14/2020, 09/28/2020, 02/15/2021 ??? FLU VACCINE IIV INC ANTIG PF IM 05/24/2019 ??? HEP A/HEP B 07/14/2020, 09/28/2020, 08/30/2021 ??? HIB-PRP-T 4 DOSE 08/11/2019, 06/16/2020, 08/31/2020, 02/15/2021 ??? MENINGOCOCCAL MCV4O 08/11/2019, 06/16/2020, 08/31/2020 ??? PFIZER SARS-COV-2 COVID-19 VACCINE 0.3ML 11/16/2020, 12/07/2020, 08/30/2021 ??? PNEUMOCOCCAL PPSV23 08/11/2019, 08/30/2021 ??? POLIO IPV 07/14/2020, 09/28/2020, 02/15/2021 ??? Pneumococcal Pcv13 Conj 06/16/2020, 08/31/2020, 02/15/2021 ??? Zoster Hzv Vacc Recombinant Inj Im 07/14/2020, 09/28/2020 Systemic ROS: ROS: negative as below unless BOLDED Gen: fever, chills, weight changes, night sweats, HEENT: Swollen glands, Nasal discharge, blurred vision CV: palpitations, chest pain GI: diarrhea constipation nausea vomiting : dysuria frequency hematuria urgency. Hem: bleeding easy bruising. Skin: rash pruritus Neuro:weakness numbness headache. Psych: depression suicidal ideation homicidal ideation. Review of all other systems is negative. PE: BP 128/88 Pulse 81 Resp 24 Wt 305 lb (138.3 kg) SpO2 99% BMI 47.77 kg/m2 General: Alert, cooperative, no distress Head: Normocephalic, without obvious abnormality, atraumatic. Eyes: Conjunctivae/corneas clear. PERRL, EOMs intact. Throat: Mucosa membrane moist. . No injection or exudate noted. Neck: Supple, symmetrical, trachea midline, no adenopathy, thyroid: no enlargment/tenderness/nodules, no carotid bruit and no JVD. Lungs: clear to auscultation Heart: Regular rate and rhythm, S1, S2 normal, no murmur, click, rub or gallop. Abdomen: Soft, non-tender. Bowel sounds normal. No masses, No organomegaly. Extremities: No edema in the lower extremities. No clubbing PFT: 11/13/21: Non specific ventilatory limitation with mildly reduced DLCO. Significant decline in TLC, DLCO , FEV1 and FVC noted. Oxygen desaturation study: 11/13/21: No desaturation within the limits of the testing protocol. Lowest SpO2 with exertion is 90% on room air. PFT 2019: Mild obstruction with bronchodilator response, hyperinflation and air trapping. 2d echo: 11/16/20: Summary Technically difficult/suboptimal echocardiogram. The left ventricle is borderline enlarged. Left ventricular systolic function is mildly decreased with an ejection fraction by Biplane Method of Discs of 48 %. Left ventricular segmental wall motion is abnormal, please see wall motion graphic. The left ventricular diastolic function is normal, consistent with normal left ventricle filling pressures. Right ventricle is not well visualized. There is no evidence of a right to left shunt by bubble study or Doppler interrogation. Chest CT: 08/30/21: Bilateral reticular changes with patchy bronchiectasis slightly improved from before. ASSESSMENT : # Moderate persistent asthma not in exacerbation. # H/o COVID infection with sequale # Bronchiectasis - likely post infectious. # Chronic hypoxic respiratory failure with hypoxia with exertion likely 2/2 post COVID. # CHFrEF. # Atrial fibrillation. # H/o tobacco use and marijuana use. # NHL s/p SCT and s/p splenectomy. # LISSA not currently on CPAP PLAN: Diagnostic: - Repeat ECHO with bubble study - Referral to sleep center for evaluation of LISSA. - Follow up on referral to pulmonary rehabilitation ( patient was never contacted for scheduling since the previous referral was sent). Therapeutic: - Continue symbicort 160/4.5 2 puffs BID and albuterol as needed. - DME order for aerobika device for airway clearance. Orders Placed This Encounter ??? AMB REFERRAL FOR DME Standing Status: Future Standing Expiration Date: 11/22/2022 Referral Priority: Routine Referral Type: Durable Medical Equipment Referral Reason: Specialty Services Required Number of Visits Requested: 1 ??? Ref to Sleep Specialist - Taylor Standing Status: Future Standing Expiration Date: 11/22/2022 Referral Priority: Routine Referral Type: Evaluate & Treat Referral Reason: Specialty Services Required Number of Visits Requested: 1 ??? albuterol HFA (PROVENTIL; VENTOLIN; PROAIR) 108 (90 Base) MCG/ACT inhaler Sig: Inhale 2 (two) puffs by mouth every 6 hours as needed for Wheezing Reasons: Asthma Dispense: 18 g Refill: 5 ??? budesonide-formoterol (SYMBICORT) 160-4.5 MCG/ACT inhaler Sig: Inhale 2 (two) puffs by mouth 2 times daily Dispense: 10.2 g Refill: 3 Follow-up in 3 months Case discussed with attending. Agree with above. Attending addendum to follow. Moon Nance MD Pulmonary / Critical Care Fellow Division of Pulmonary, Critical Care, & Sleep Medicine [facility] Pager: [phone] Associated attestation - Andrew Francis MD - 11/23/2021 7:47 PM CDT Start Pulmonary Rehab. Evaluation in Sleep Clinic. Check Echocardiogram with bubble study. Have evaluate the L abdominal/incisional hernia. RTC 3 months. I have seen, examined and discussed the patient with the fellow and I agree with the the findings and plan of care/recommendations as documented by the fellow. Date of service: 11/22/21 Andrew Francis M.D. Audiovisual Production Specialist of Internal Medicine Division of Pulmonary, Critical Care and Sleep Medicine [facility] documented in this encounter Plan of Treatment Upcoming Encounters Date Type Department Care Team (Late st Contact Info) Description 08/26/2024 11:00 AM PUBLIC AREA ATTENDANT Office Visit [facility] - Pulmonology [address] [place] [address], [place] [phone] Andrew Francis MD [address] [place] [address] 2L DIV OF PULMONARY/[place] [address] documented as of this encounter Results * ECHO COMPLETE W BUBBLE STUDY (02/22/2022 3:04 PM CDT) Anatomical Region Laterality Modality Chest Echo 02/22/2022 2:27 PM CDT Narrative Procedure Note Radha Aburto MD - 02/22/2022 Andrew Francis MD ECHOCARDIOGRAPHY RAD IANT documented in this encounter Visit Diagnoses Diagnosis COVID-19 long hauler manifesting chronic dyspnea- Primary Moderate persistent asthma without complication (HCC) Unspecified asthma LISSA (obstructive sleep apnea) Obstructive sleep apnea (adult) (pediatric) Bronchiectasis without complication (HCC) Bronchiectasis without acute exacerbation HFrEF (heart failure with reduced ejection fraction) (HCC) Incisional hernia, without obstruction or gangrene Incisional hernia without mention of obstruction or gangrene COVID- Primary documented in this encounter Care Teams Secondary History Teacher Relationship Specialty Start Date End Date Ran Nuñez MD [address] [place] [address] PCP - General Family Medicine 08/30/21 Hillary Apple MD [address] [place] [address] Hematology and Oncology 03/17/19 Tony Dumont MD [facility] [place] [address] Hematology and Oncology 03/17/19 Maryjo Reinoso, DIRECTOR OF SECURITIES AND REAL ESTATE Grocery Manager 03/17/19 Madyson Clay, PharmD 03/17/19 Dana Lala, FARMWORKER FUR-GAME PROTECTOR [address] [place] [address] Oncology 03/17/19 Tiffanie Nguyen, FARMWORKER FUR-RADIOPHONE OPERATOR [facility] [place] [address] Family Medicine 03/17/19 Cesar Tavares MD [facility] 2nd [place] [address] Referring Physician Medical Oncology 03/23/19 CarrasquilloJoy Bedolla 09/22/19 Tony Dumont MD [address] [place] [address] Hematology and Oncology 10/30/21 Shalini Segal MD [address] [facility] HEMATOLOGY & [place] [address] Garment Steamer/Oncologist Hematology and Oncology 10/30/21 Stefanie Burns, ROSEMARY Registered Nurse 10/30/21 Fatemeh Bolaños, RN Registered Nurse 10/30/21 documented as of this encounter
--- OUTSIDE RECORDS SUMMARY | 2024-08-18 00:22 | XMS_ITS | Encounter Summary ---
Author Organization [facility] Address [address] [place] [address] Care Team Providers Care Final Expense Agent Name Role Phone Hillary Apple MD Unavailable [phone] Tony Dumont MD Unavailable [phone] Maryjo Reinoso JUKE BOX MECHANIC Unavailable Unavailable Madyson Clay PharmD Unavailable Unavaila Dana Galicia TELETYPESETTER OPERATOR-WINE STEWARD Unavailable [phone] Patrick Lara TELETYPESETTER OPERATOR-MOBILITY ARCHITECT MANAGER Unavailable [phone] Stephanie Mahoney RN Unavailable Unavailable Alycia Galvan RN Unavailable UnavailCesar Allen MD Unavailable [phone] Karie Jones RN Unavailable Unavailable Joy Bob Unavailable Fanta Addison Weinstein PharmD Unavailable Unavailab Ran Hoang MD Primary Care Provider Reason for Referral * Radiology Services (Routine) - Closed Specialty Diagnoses / Procedures Referred By Deng meraz Referred To Contact CT Scan Diagnoses Diffuse large B-cell lymphoma, unspecified body region (HCC) Procedures CT CHEST ABDOMEN PELVIS WO CONT Hillary Apple MD [facility] OF HEMATOLOGY & [place] [address] [facility] [address] [place] [phone] Referral ID Status Reason Start Date Expiration Date Visits Re quested Visits Authorized [id number] Closed 08/16/2021 02/12/2022 1 1 F BANK EXAMINER Reason for Visit * Radiology Services (Routine) - Closed Specialty Diagnoses / Procedures Referred By Deng meraz Referred To Contact CT Scan Diagnoses Diffuse large B-cell lymphoma, unspecified body region (HCC) Procedures CT CHEST [place] [address] [place] [address] OF HEMATOLOGY & [place] [address] [facility] [address] [place] [address] Referral ID Status Reason Start Date Expiration Date Visits Re quested Visits Authorized [id number] Closed 08/16/2021 02/12/2022 1 1 Encounter Details Date Type Department Care Team (Late st Contact Info) Description 08/30/2021 10:27 AM CHIEF BANK EXAMINER - 08/30/2021 10:47 AM CHIEF BANK EXAMINER Hospital Encounter [facility] CAT SCAN [address] [place] [phone] Hillary Apple MD [address] [place] [address] HEMATOLOGY & [place] [address] Discharge Disposition: Home or Self Care Social [...] Exposure Response Date Recorded In the last month, have you been in contact with someone who was confirmed or suspected to have Coronavirus / COVID-19? No / Unsure 08/30/2021 10:25 AM CHIEF BANK EXAMINER documented as of this encounter Functional Status [...] MOUTH EVERY DAY 30 tablet 11 08/10/2021 multivitamin daily tablet Take 1 (one) tablet [...] TWICE DAILY 360 tablet 3 11/28/2020 02/19/2023 albuterol HFA (PROVENTIL;VENTOLIN; PROAIR) 108 (90 Base) MCG/ACT inhalerIndications:A sthma Inhale 2 (two) puffs by mouth every 6 hours as needed for Wheezing Reasons: Asthma 18 g 2021 11/22/2021 budesonide-formotero l (SYMBICORT) 160-4.5 MCG/ACT inhaler Inhale 2 (two) puffs by mouth 2 times daily 1 Inhaler 5 09/28/2020 10/24/2021 diclofenac sodium EC (VOLTAREN) 75 MG tablet TK 1 T PO BID PRF PAIN 06/05/202006/30 fluticasone propionate (FLONASE) 50 MCG/ACT nasal spray 2 SPRAYS IN EACH NOSTRIL Q DAY 06/02/2020 12/20/2021 ondansetron, disintegrating, (ZOFRAN ODT) 8 MG tablet Dissolve 1 tablet on top of tongue then swallow with saliva every 8 hours as needed for nausea or vomiting 04/19/2019 12/20/2021 oxyCODONE, immediate release, (ROXICODONE) 5 MG tablet Take 1 (one) tablet by mouth every 12 hours as needed for Pain 15 tablet 08/15/2021 12/20/2021 prochlorperazine (COMPAZINE) 10 MG tablet Take 10 mg by mouth every 6 hours as needed 04/27/2019 12/20/2021 saline nasal spray (OCEAN; BABY AYR) 0.65 % nasal spray Lovejoy 2 sprays into each nostril every 2 hours as needed for Dry Nose 04/05/2020 12/20/2021 sulfamethoxazole-tri methoprim (BACTRIM DS; SEPTRA DS) 800-160 MG tablet every Friday, Friday & Friday08/11/2021 08/31/2021 vitamin D3-cholecalciferol (CHOLECALCIFEROL) 25 MCG (1000 UNITS) tablet Take 2 (two) tablets by mouth once daily 180 tablet 3 11/03/2020 06/30/2022 documented as of this encounter Plan of Treatment Upcoming Encounters Date Type Department Care Team (Late st Contact Info) Description 08/26/2024 11:00 AM CHIEF BANK EXAMINER Office Visit [facility] - Pulmonology [address] [place] [address], [place] [phone] Andrew Francis MD [address] [place] [address] DIV OF PULMONARY/[place] [address] documented as of this encounter Procedures Procedure Name Priority Date/Time Associated Diagnosis Comments CT CHEST ABDOMEN PELVIS WO CONT Routine 08/30/2021 10:33 AM CHIEF BANK EXAMINER Diffuse large B-cell lymphoma, unspecified body region (HCC) documented in this encounter Results * CT CHEST ABDOMEN PELVIS WO CONT (08/30/2021 10:33 AM CHIEF BANK EXAMINER) Anatomical Region Laterality Modality Chest, Abdomen, Pelvis Computed Tomography 08/30/2021 10:4 9 AM CHIEF BANK EXAMINER Impressions 08/30/2021 2:51 PM CHIEF BANK EXAMINER Impression: 1.Interval improvement in persistent reticulation, cystic [...] 2:51 PM . Narrative 08/30/2021 2:51 PM CHIEF BANK EXAMINER Procedure Information DATE: 08/30/2021 10:33 AM EXAMINATION: [...] PM . Hillary Apple MD CT ORDERABLES documented in this encounter Visit Diagnoses Diagnosis Diffuse large B-cell lymphoma, unspecified body region (HCC) documented in this encounter Care Teams Final Expense Agent Relationship Specialty Start Date End Date Ran Nuñez MD [address] [place] [address] PCP - General Family Medicine 08/30/21 Hillary Apple MD [address] [place] [address] Hematology and Oncology 03/17/19 Tony Dumont MD [address] [place] [address] Hematology and Oncology 03/17/19 Maryjo Reinoso, JUKE BOX MECHANIC Salon Coordinator 03/17/19 Madyson Clay, PharmD 03/17/19 Dana Lala, TELETYPESETTER OPERATOR-WINE STEWARD [address] [place] [address] Oncology 03/17/19 Tiffanie Nguyen, TELETYPESETTER OPERATOR-MOBILITY ARCHITECT MANAGER [address] [facility] [address] [place] [address] Family Medicine 03/17/19 Stephanie Mahoney, RN Registered Nurse 03/17/19 10/29/21 Alycia Galvan, RN 03/17/19 10/29/21 Cesar Tavares MD Referring Physician Medical Oncology 03/23/19 Karie Jones, RN Registered Nurse 06/08/19 10/29/21 Joy Bob 09/22/19 Addison Shea, PharmD Pharmacist 09/22/19 10/29/21 documented as of this encounter
--- OUTSIDE RECORDS SUMMARY | 2024-08-18 00:22 | XMS_ITS | Encounter Summary ---
Author Organization [facility] Address [address] [facility] [place] [address] Care Team Providers Care Computer Field Technician Name Role Phone Hillary Apple MD Unavailable [phone] Bill Ferrera MD Unavailable [phone] Tony Dumont MD Unavailable [phone] Maryjo Reinoso [facility] Unavailable Unavailable Madyson Clay PharmD Unavailable Unavaila Dana Galicia PROCEDURES TECH-FILBERT GROWER Unavailable [phone] Tiffanie Nguyen PROCEDURES TECH-SERVICER COIN MACHINES Unavailable [phone] Stephanie Mahoney RN Unavailable Unavailable Alycia Galvan RN Unavailable UnavailCesar Allen MD Unavailable [phone] Karie Jonse RN Unavailable Unavailable Joy Bob Unavailable Fanta Addison Weinstein PharmD Unavailable Unavailab Alida Chang PROCEDURES TECH-SERVICER COIN MACHINES Primary Care Provider Encounter Details Date Type Department Care Team (Latest Contact Info) Description 04/20/2021 Travel Social History Tobacco Use Types Packs/Day [...] have Coronavirus / COVID-19? No / Unsure 04/20/2021 4:07 PM CDT documented as of this encounter [...] st Contact Info) Description 08/26/2024 11:00 AM RETRIMMER Office Visit [facility] - Pulmonology [address] [facility], [place] [address] Andrew Francis MD [address] [facility] 2L DIV OF PULMONARY/[place] [address] documented as of this encounter Visit Diagnoses Not on filedocumented in this encounter Care Teams Computer Field Technician Relationship Specialty Start Date End Date Alida Marshall, PROCEDURES TECH-SERVICER COIN MACHINES [address] [facility] DIV OF HEMATOLOGY & [place] [address] PCP - General Family Medicine 12/23/20 08/29/21 Hillary Apple MD [facility] [place] [address] Hematology and Oncology 03/17/19 Bill Ferrera MD [address] [place] [address] Hematology and Oncology 03/17/19 08/27/21 Tony Dumont MD [address] [place] [address] Hematology and Oncology 03/17/19 Maryjo Reinoso, SHOULDER JOINER Tree Sapper 03/17/19 Madyson Clay, PharmD 03/17/19 Dana Lala, PROCEDURES TECH-FILBERT GROWER [address] [facility] [address] [address] Oncology 03/17/19 Tiffanie Nguyen, PROCEDURES TECH-SERVICER COIN MACHINES [address] [facility] 2[place] [address] Family Medicine 03/17/19 Stephanie Mahoney, RN Registered Nurse 03/17/19 10/29/21 Alycia Galvan, RN 03/17/19 10/29/21 Cesar Tavares MD Referring Physician Medical Oncology 03/23/19 Karie Jones, RN Registered Nurse 06/08/19 10/29/21 Joy Bob 09/22/19 Addison Shea, PharmD Pharmacist 09/22/19 10/29/21 documented as of this encounter
--- OUTSIDE RECORDS SUMMARY | 2024-08-18 00:22 | XMS_ITS | Encounter Summary ---
Author Organization [facility] Address [address] [place] [address] Care Team Providers Care Electronic Specialist Name Role Phone Hillary Apple MD Unavailable [phone] Bill Ferrera MD Unavailable [phone] Tony Dumont MD Unavailable [phone] Maryjo Reinoso [facility] Unavailable Unavailable Madyson Clay PharmD Unavailable Unavaila Dana Galicia COMMERCIAL CARPENTER-BIOPHYSICS SCIENTIST Unavailable [phone] Tiffanie Nguyen COMMERCIAL CARPENTER-POLICE SURGEON Unavailable [phone] Stephanie Mahoney RN Unavailable Unavailable Alycia Galvan RN Unavailable UnavailCesar Allen MD Unavailable [phone] Karie Jones RN Unavailable Unavailable Joy Bob Unavailable Fanta Addison Weinstein PharmD Unavailable Unavailab Alida Chang COMMERCIAL CARPENTER-POLICE SURGEON Primary Care Provider Reason for Visit * Reason Onset Date Comments MEDICATION REFILL 06/06/2021 Encounter Details Date Type Department Care Team (Late st Contact Info) Description 06/06/2021 [facility]ill [facility] [address] [place] [address] Hillary Apple MD [address] [facility] OF HEMATOLOGY & [place] [address] MEDICATION REFILL Social History Tobacco [...] have Coronavirus / COVID-19? No / Unsure 05/31/2021 8:33 AM CDT documented as of this encounter [...] st Contact Info) Description 08/26/2024 11:00 AM TOP INVENTORY CONTROL EXECUTIVE Office Visit [facility] - Pulmonology [address] [facility], [place] [address] Andrew Francis MD [address] [facility] 2L DIV OF PULMONARY/[place] [address] documented as of this encounter Visit Diagnoses Not on filedocumented in this encounter Care Teams Electronic Specialist Relationship Specialty Start Date End Date Alida Marshall APRN-POLICE SURGEON [address] [facility] DIV OF HEMATOLOGY & [place] [address] PCP - General Family Medicine 12/23/20 08/29/21 Hillary Apple MD [address] [place] [address] Hematology and Oncology 03/17/19 Bill Ferrera MD [address] [place] [address] Hematology and Oncology 03/17/19 08/27/21 Tony Dumont MD [address] [place] [address] Hematology and Oncology 03/17/19 Maryjo Reinoso, [facility] Outboard Motorboat Rigger 03/17/19 Madyson Clay, PharmD 03/17/19 Dana Lala, COMMERCIAL CARPENTER-BIOPHYSICS SCIENTIST [address] [place] [address] 2nd [place] [address] Oncology 03/17/19 Tiffanie Nguyen, COMMERCIAL CARPENTER-POLICE SURGEON [address] [place] [address] 2nd [place] [address] Family Medicine 03/17/19 Stephanie Mahoney, RN Registered Nurse 03/17/19 10/29/21 Alycia Galvan, ROSEMARY 03/17/19 10/29/21 Cesar Tavares MD Referring Physician Medical Oncology 03/23/19 Karie Jones, RN Registered Nurse 06/08/19 10/29/21 Joy Bob 09/22/19 Addison Shea, PharmD Pharmacist 09/22/19 10/29/21 documented as of this encounter
--- OUTSIDE RECORDS SUMMARY | 2024-08-18 00:22 | XMS_ITS | Encounter Summary ---
Author Organization [facility] Address [address] [place] [address] Care Team Providers Care Fur Stylist Name Role Phone Hillary Apple MD Unavailable [phone] Bill Ferrera MD Unavailable [phone] Tony Dumont MD Unavailable [phone] Maryjo Reinoso [facility] Unavailable Unavailable Madyson Clay PharmD Unavailable Unavaila Dana Galicia SUPPLY REQUIREMENTS OFFICER-LOAN BROKER Unavailable [phone] Tiffanie Nguyen SUPPLY REQUIREMENTS OFFICER-TRAFFIC DIRECTOR Unavailable [phone] Stephanie Mahoney RN Unavailable Unavailable Alycia Galvan RN Unavailable UnavailCesar Allen MD Unavailable [phone] Karie Jones RN Unavailable Unavailable Joy Bob Unavailable Fanta Addison Weinstein PharmD Unavailable Unavailab Alida Chang SUPPLY REQUIREMENTS OFFICER-TRAFFIC DIRECTOR Primary Care Provider Encounter Details Date Type Department Care Team (Latest Contact Info) Description 05/31/2021 Travel Social History Tobacco Use Types Packs/Day [...] st Contact Info) Description 08/26/2024 11:00 AM APPLIED EXERCISE PHYSIOLOGIST Office Visit [facility] - Pulmonology [address] [facility], [place] [address] Andrew Francis MD [address] [facility] 2L DIV OF PULMONARY/[place] [address] documented as of this encounter Visit Diagnoses Not on filedocumented in this encounter Care Teams Fur Stylist Relationship Specialty Start Date End Date Alida Marshall, SUPPLY REQUIREMENTS OFFICER-TRAFFIC DIRECTOR [address] [facility] DIV OF HEMATOLOGY & [place] [address] PCP - General Family Medicine 12/23/20 08/29/21 Hillary Apple MD [facility] [place] [address] Hematology and Oncology 03/17/19 Bill Ferrera MD [address] [place] [address] Hematology and Oncology 03/17/19 08/27/21 Tony Dumont MD [address] [place] [address] Hematology and Oncology 03/17/19 Maryjo Reinoso, ANALOG DEVICE DESIGNER Air Chipper 03/17/19 Madyson Clay, PharmD 03/17/19 Dana Lala, SUPPLY REQUIREMENTS OFFICER-LOAN BROKER [address] [facility] [address] [address] Oncology 03/17/19 Tiffanie Nguyen, SUPPLY REQUIREMENTS OFFICER-TRAFFIC DIRECTOR [address] [facility] [address] [address] Family Medicine 03/17/19 Stephanie Mahoney, RN Registered Nurse 03/17/19 10/29/21 Alycia Galvan, RN 03/17/19 10/29/21 Cesar Tavares MD Referring Physician Medical Oncology 03/23/19 Karie Jones, RN Registered Nurse 06/08/19 10/29/21 Joy Bob 09/22/19 Addison Shea, PharmD Pharmacist 09/22/19 10/29/21 documented as of this encounter
--- OUTSIDE RECORDS SUMMARY | 2024-08-18 00:22 | XMS_ITS | Encounter Summary ---
Author Organization [facility] Address [address] [place] [address] Care Team Providers Care Accounting System Expert Name Role Phone Hillary Apple MD Unavailable [phone] Bill Ferrera MD Unavailable [phone] Tony Dumont MD Unavailable [phone] Maryjo Reinoso [facility] Unavailable Unavailable Madyson Clay PharmD Unavailable Unavaila Dana Galicia CORROSION TECHNICIAN-BARREL RIFLER BUTTON Unavailable [phone] Tiffanie Nguyen CORROSION TECHNICIAN-FABRIC SEPARATOR OPERATOR Unavailable [phone] Stephanie Mahoney RN Unavailable Unavailable Alycia Galvan RN Unavailable UnavailCesar Allen MD Unavailable [phone] Karie Jones RN Unavailable Unavailable Joy Bob Unavailable Fanta Addison Weinstein PharmD Unavailable Unavailab Alida Chang CORROSION TECHNICIAN-FABRIC SEPARATOR OPERATOR Primary Care Provider Reason for Visit * Reason Comments Refill Request Encounter Details Date Type Department Care Team (Late st Contact Info) Description 06/05/2021 [facility] [address] [place] [address] Hillary Apple MD [address] [facility] OF HEMATOLOGY & [place] [address] Refill Request Social History Tobacco Use Types [...] st Contact Info) Description 08/26/2024 11:00 AM MORGUE TECHNICIAN Office Visit [facility] Physician Group - Pulmonology [address] [facility], [place] [address] Andrew Francis MD [address] [facility] 2L DIV OF PULMONARY/[place] [address] documented as of this encounter Visit Diagnoses Not on filedocumented in this encounter Care Teams Accounting System Expert Relationship Specialty Start Date End Date Alida Marshall APRN-FABRIC SEPARATOR OPERATOR [address] [facility] DIV OF HEMATOLOGY & [place] [address] PCP - General Family Medicine 12/23/20 08/29/21 Hillary Apple MD [address] [place] [address] Hematology and Oncology 03/17/19 Bill Ferrera MD [address] [place] [address] Hematology and Oncology 03/17/19 08/27/21 Tony Dumont MD [address] [place] [address] Hematology and Oncology 03/17/19 Maryjo Reinoso, SERVICE DELIVERY MANAGEMENT CONSULTANT Tig Welder 03/17/19 Madyson Clay, PharmD 03/17/19 Dnaa Lala, CORROSION TECHNICIAN-BARREL RIFLER BUTTON [address] [place] [address] 2nd [place] [address] Oncology 03/17/19 Tiffanie Nguyen, CORROSION TECHNICIAN-FABRIC SEPARATOR OPERATOR [address] [place] [address] 2[place] [address] Family Medicine 03/17/19 Stephanie Mahoney, RN Registered Nurse 03/17/19 10/29/21 Alycia Galvan, ROSEMARY 03/17/19 10/29/21 Cesar Tavares MD Referring Physician Medical Oncology 03/23/19 Karie Jones, RN Registered Nurse 06/08/19 10/29/21 Joy Bob 09/22/19 Addison Shea, PharmD Pharmacist 09/22/19 10/29/21 documented as of this encounter
--- OUTSIDE RECORDS SUMMARY | 2024-08-18 00:22 | XMS_ITS | Encounter Summary ---
Author Organization [facility] Address [address] [place] [address] Care Team Providers Care Sports Editor Name Role Phone Hillary Apple MD Unavailable [phone] Tony Dumont MD Unavailable Maryjo ReinosoW Unavailable Unavailable Madyson Clay PharmD Unavailable Unavaila Dana Galicia DEVELOPMENT DISABILITY SPECIALIST-AIRCRAFT ELECTRICIAN Unavailable [phone] Tiffanie Nguyen DEVELOPMENT DISABILITY SPECIALIST-CORRECTIONAL MAINTENANCE TECHNICIAN Unavailable Cesar Tavares MD Unavailable [phone] Joy Bob Unavailable Fanta Ran Augustine MD Primary Care Provider Tony Dumont MD Unavailable Shalini Segal MD Unavailable Stefanie Burns RN Unavailable Unavaila Fatemeh Kelly RN Unavailable Unavailable Encounter Details Date Type Department Care Team (Late st Contact Info) Description 11/22/2021 Orders Only [facility] Pulmonary, Critical Care and Sleep Medicine [address] [facility], [place] [address] Andrew Francis MD [address] [facility] 2L DIV OF PULMONARY/CRITICAL CARE [place], [place] [id number] COVID-19 long hauler manifesting chronic dyspnea; HFrEF (heart failure with reduced ejection fraction) (FORMERLY [facility]) Social History Tobacco Use Types Packs/Day Years [...] st Contact Info) Description 08/26/2024 11:00 AM FAMILY MANAGER Office Visit [facility] Group - Pulmonology [address] [place] [address], [place] [address] Andrew Francis MD [address] [place] [address] 2L DIV OF PULMONARY/[place] [address] documented as of this encounter Procedures Procedure Name Priority Date/Time Associated Diagnosis Comments ECHO COMPLETE W BUBBLE STUDY Routine 02/22/2022 3:04 PM CDT COVID-19 nitish garcia manifesting chronic dyspnea HFrEF (heart failure with reduced ejection fraction) ([facility]) documented in this encounter Results * ECHO COMPLETE W BUBBLE STUDY (02/22/2022 3:04 PM CDT) Anatomical Region Laterality Modality Chest Echo 02/22/2022 2:27 PM CDT Narrative Procedure Note Radha Aburto MD - 02/22/2022 Andrew Francis MD ECHOCARDIOGRAPHY RAD IANT documented in this encounter Visit Diagnoses Diagnosis COVID-19 nitish garcia manifesting chronic dyspnea HFrEF (heart failure with reduced ejection fraction) (HCC) COVID- Primary documented in this encounter Care Teams Sports Editor Relationship Specialty Start Date End Date Ran Nuñez MD [address] [place] [address] PCP - General Family Medicine 08/30/21 Hillary Apple MD [facility]5 [place] [address] Hematology and Oncology 03/17/19 Tony Dumont MD [facility]5 [place] [address] Hematology and Oncology 03/17/19 Maryjo Reinoso, [facility] Geospatial Analyst 03/17/19 Madyson Clay, PharmD 03/17/19 Dana Lala, DEVELOPMENT DISABILITY SPECIALIST-AIRCRAFT ELECTRICIAN [address] 2nd [place] [address] Oncology 03/17/19 Tiffanie Nguyen, DEVELOPMENT DISABILITY SPECIALIST-CORRECTIONAL MAINTENANCE TECHNICIAN [address] 2nd [place] [address] Family Medicine 03/17/19 Cesar Tavares MD [address] [facility] 2nd [place] [address] Referring Physician Medical Oncology 03/23/19 Joy Bob 09/22/19 Tony Dumont MD [address] [place] [address] Hematology and Oncology 10/30/21 Shalini Segal MD [facility] [facility] OF HEMATOLOGY & [place] [address] Cigarette And Filter Chief Inspector/Oncologist Hematology and Oncology 10/30/21 Stefanie Burns, RN Registered Nurse 10/30/21 Fatemeh Bolaños, RN Registered Nurse 10/30/21 documented as of this encounter
--- OUTSIDE RECORDS SUMMARY | 2024-08-18 00:22 | XMS_ITS | Encounter Summary ---
Author Organization [facility] Address [address] [facility] [place] [address] Care Team Providers Care Digital Librarian Name Role Phone Hillary Apple MD Unavailable [phone] Bill Ferrera MD Unavailable [phone] Tony Dumont MD Unavailable [phone] Maryjo Reinoso [facility] Unavailable Unavailable Madyson Clay PharmD Unavailable Unavaila Dana Galicia SHEET HEATER-COMPACT ASSEMBLER Unavailable [phone] Tiffanie Nguyen APRN-BUSINESS CONTINUITY ANALYST Unavailable [phone] Stephanie Mahoney RN Unavailable Unavailable Alycia Galvan RN Unavailable UnavailCesar Allen MD Unavailable [phone] Karie Jones RN Unavailable Unavailable Joy Bob Unavailable Fanta Addison Weinstein PharmD Unavailable Unavailab Alida Chang SHEET HEATER-BUSINESS CONTINUITY ANALYST Primary Care Provider Encounter Details Date Type Department Care Team (Late st Contact Info) Description 05/10/2021 Orders Only [facility] BMT CLINIC [address] [place] [address] Tiffanie Nguyen APRN-BUSINESS CONTINUITY ANALYST [address] [place] [address] Social History Tobacco Use Types Packs/Day Years [...] st Contact Info) Description 08/26/2024 11:00 AM PICTURE FRAMER Office Visit [facility] - Pulmonology [address] [facility], [place] [address] Andrew Francis MD [address] [facility] 2L DIV OF PULMONARY/[place] [address] documented as of this encounter Visit Diagnoses Not on filedocumented in this encounter Care Teams Digital Librarian Relationship Specialty Start Date End Date Alida Marshall APRN-BUSINESS CONTINUITY ANALYST [address] [facility] DIV OF HEMATOLOGY & [place] [address] PCP - General Family Medicine 12/23/20 08/29/21 Hillary Apple MD [address] [place] [address] Hematology and Oncology 03/17/19 Bill Ferrera MD [facility] [place] [address] Hematology and Oncology 03/17/19 08/27/21 Tony Dumont MD [facility] [place] [address] Hematology and Oncology 03/17/19 Maryjo Reinoso, CUSTOM STUDIO COORDINATOR Ski Maker 03/17/19 Madyson Clay, PharmD 03/17/19 Dana Lala, SHEET HEATER-COMPACT ASSEMBLER [address] [place] [address] 2[place] [address] Oncology 03/17/19 Tiffanie Nguyen, SHEET HEATER-BUSINESS CONTINUITY ANALYST [address] [place] [address] 2nd [place] [address] Family Medicine 03/17/19 Stephanie Mahoney, RN Registered Nurse 03/17/19 10/29/21 Alycia Galvan, RN 03/17/19 10/29/21 Cesar Tavares MD Referring Physician Medical Oncology 03/23/19 Karie Jones, RN Registered Nurse 06/08/19 10/29/21 Joy Bob 09/22/19 Addison Shea, PharmD Pharmacist 09/22/19 10/29/21 documented as of this encounter
--- OUTSIDE RECORDS SUMMARY | 2024-08-18 00:22 | XMS_ITS | Encounter Summary ---
Author Organization [facility] Address [address] [facility] [place] [address] Care Team Providers Care Traffic Warehouse Supervisor Name Role Phone Hillary Apple MD Unavailable [phone] Tony Dumont MD Unavailable [phone] Maryjo ReinosoW Unavailable Unavailable Madyson Clay PharmD Unavailable Unavaila Dana Galicia ELECTROMECHANIC-PUBLICATIONS INSPECTOR Unavailable [phone] Tiffanie Nguyen ELECTROMECHANIC-SHIP YARD ELECTRICAL PERSON Unavailable [phone] Stephanie Mahoney RN Unavailable Unavailable Alycia Galvan RN Unavailable UnavailCesar Allen MD Unavailable [phone] Karie Jones RN Unavailable Unavailable Joy Bob Unavailable Fanta Addison Weinstein PharmD Unavailable Unavailab Ran Hoang MD Primary Care Provider Reason for Visit * Reason Onset Date Comments MEDICATION REFILL 10/24/2021 Encounter Details Date Type Department Care Team (Late st Contact Info) Description 10/24/2021 Refill [facility] Pulmonary, Critical Care and Sleep Medicine [address] [place] [address] Mercy Quinteros, ASSEMBLER GARMENT FORM REFILL Social History Tobacco Use Types Packs/Day [...] Miscellaneous Notes * Telephone Encounter - Mercy Quinteros RN - 10/24/2021 11:12 AM CDT Refill Request Marcello Guillen Allergies: Allergies Allergen Reactions ??? Adhesive Sensitivity Urticaria and Other Electrodes -- welps where stickers are Also, use paper tape Pended Medication Order: Requested Prescriptions Pending Prescriptions Disp Refills ??? budesonide-formoterol (SYMBICORT) 160-4.5 MCG/ACT inhaler Sig: Inhale 2 (two) puffs by mouth 2 times daily documented in this encounter Plan of Treatment Upcoming Encounters Date Type Department Care Team (Late st Contact Info) Description 08/26/2024 11:00 AM BUSINESS SOLUTIONS DIRECTOR Office Visit [facility]ician Group - Pulmonology [address] [place] [address], [place] [address] Andrew Francis MD [address] [place] [address] 2L DIV OF PULMONARY/[place] [address] documented as of this encounter Visit Diagnoses Not on filedocumented in this encounter Care Teams Traffic Warehouse Supervisor Relationship Specialty Start Date End Date Ran Nuñez MD [address] [place] [address] PCP - General Family Medicine 08/30/21 Hillary Apple MD [address] [place] [address] Hematology and Oncology 03/17/19 Tony Dumont MD [address] [place] [address] Hematology and Oncology 03/17/19 Maryjo Reinoso, MEDICATION CARE MANAGER Surface Plate Finisher 03/17/19 Madyson Clay, PharmD 03/17/19 Dnaa Lala, ELECTROMECHANIC-PUBLICATIONS INSPECTOR [facility]nd [place] [address] Oncology 03/17/19 Tiffanie Nguyen, ELECTROMECHANIC-SHIP YARD ELECTRICAL PERSON [facility] 2nd [place] [address] Family Medicine 03/17/19 Stephanie Mahoney, RN Registered Nurse 03/17/19 10/29/21 Alycia Galvan, ROSEMARY 03/17/19 10/29/21 Cesar Tavares MD Referring Physician Medical Oncology 03/23/19 Karie Jones, RN Registered Nurse 06/08/19 10/29/21 Joy Bob 09/22/19 Addison Shea, PharmD Pharmacist 09/22/19 10/29/21 documented as of this encounter
--- OUTSIDE RECORDS SUMMARY | 2024-08-18 00:22 | XMS_ITS | Encounter Summary ---
Author Organization [facility] Address [address] [facility] [place] [address] Care Team Providers Care Maid Cleaning Cooking Name Role Phone Hillary Apple MD Unavailable [phone] Tony Dumont MD Unavailable [phone] Maryjo Reinoso BORING MACHINE OPERATOR VERTICAL Unavailable Unavailable Madyson Clay PharmD Unavailable Unavaila Dana Galicia NEWSAGENT-ISSUING OPERATOR Unavailable [phone] Tiffanie Nguyen NEWSAGENT-FORECLOSURE HOME INSPECTOR Unavailable [phone] Stephanie Mahoney RN Unavailable Unavailable Alycia Galvan RN Unavailable UnavailCesar Allen MD Unavailable [phone] Karie Jones RN Unavailable Unavailable Joy Bob Unavailable Fanta Addison Weinstein PharmD Unavailable Unavailab Ran Hoang MD Primary Care Provider Reason for Visit * Reason Comments Refill Request Encounter Details Date Type Department Care Team (Late st Contact Info) Description 09/09/2021 Refill [facility] [address] [place] [address] Hillary Apple MD [address] [facility] [place] [address] Refill Request Social History Tobacco Use Types [...] COVID-19? No / Unsure 08/30/2021 10:25 AM LADLE OPERATOR documented as of this encounter Functional [...] st Contact Info) Description 08/26/2024 11:00 AM LADLE OPERATOR Office Visit [facility] - Pulmonology [address] [place] [address], [place] [address] Andrew Francis MD [address] [place] [address] 2L DIV OF PULMONARY/[place] [address] documented as of this encounter Visit Diagnoses Not on filedocumented in this encounter Care Teams Maid Cleaning Cooking Relationship Specialty Start Date End Date Ran Nuñez MD [address] [place] [address] PCP - General Family Medicine 08/30/21 Hillary Apple MD [address] [place] [address] Hematology and Oncology 03/17/19 Tony Dumont MD [address] [place] [address] Hematology and Oncology 03/17/19 Maryjo Reinoso, BORING MACHINE OPERATOR VERTICAL Lawn Care Worker 03/17/19 Madyson Clay, PharmD 03/17/19 Dana Lala, NEWSAGENT-ISSUING OPERATOR [address] [facility] 2nd [place] [address] Oncology 03/17/19 Tiffanie Nguyen, NEWSAGENT-FORECLOSURE HOME INSPECTOR [address] [place] [address] Family Medicine 03/17/19 Stephanie Mahoney, RN Registered Nurse 03/17/19 10/29/21 Alycia Galvan, ROSEMARY 03/17/19 10/29/21 Cesar Tavares MD Referring Physician Medical Oncology 03/23/19 Karie Jones, RN Registered Nurse 06/08/19 10/29/21 Joy Bob 09/22/19 Addison Shea, PharmD Pharmacist 09/22/19 10/29/21 documented as of this encounter
--- OUTSIDE RECORDS SUMMARY | 2024-08-18 00:22 | XMS_ITS | Encounter Summary ---
Author Organization [facility] Address [address] [facility] [place] [address] Care Team Providers Care Transportation Worker Name Role Phone Hillary Apple MD Unavailable [phone] Bill Ferrera MD Unavailable [phone] Tony Dumont MD Unavailable [phone] Maryjo Reinoso [facility] Unavailable Unavailable Madyson Clay PharmD Unavailable Unavaila Dana Galicia SYSTEMS PROGRAMMER ANALYST-STRIPPER APPRENTICE Unavailable [phone] Tiffanie Nguyen SYSTEMS PROGRAMMER ANALYST-MANAGER OF DATA Unavailable [phone] Stephanie Mahoney RN Unavailable Unavailable Alycia Galvan RN Unavailable UnavailCesar Allen MD Unavailable [phone] Karie Jones RN Unavailable Unavailable Joy Bob Unavailable Fanta Addison Weinstein PharmD Unavailable Unavailab Alida Chang SYSTEMS PROGRAMMER ANALYST-MANAGER OF DATA Primary Care Provider Encounter Details Date Type Department Care Team (Latest Contact Info) Description 04/21/2021 11:40 AM CDT - 04/21/2021 11:59 PM CDT Hospital Encounter [facility] - Medical Imaging [address] [place] [address] Christina Noland, SYSTEMS PROGRAMMER ANALYST-MANAGER OF DATA [address] [place] [address] Discharge Disposition: Home or Self Care Social [...] puffs by mouth every 4 hours 04/05/2020 multivitamin daily tablet Take 1 (one) tablet by mouth daily with food rOPINIRole (REQUIP) 0.25 MG tabletIndications:Re stless Leg [...] times daily 1 Inhaler 5 09/28/2020 10/24/2021 clonazePAM (KLONOPIN) 1 MG tablet Take 1 (one) tablet by mouth at bedtime 30 tablet 03/09/2021 05/09/2021 clonazePAM (KLONOPIN) 1 MG tablet TAKE 1 TABLET BY MOUTH AT BEDTIME FOR ANXIETY 30 tablet 02/12/2021 05/24/2021 diclofenac sodium EC (VOLTAREN) 75 MG tablet TK 1 T PO BID PRF PAIN 06/05/202006/30 escitalopram (LEXAPRO) 20 MG tablet Take 1 tablet by mouth once daily 30 tablet 11 07/14/2020 08/10/2021 FEROSUL 325 (65 Fe) MG tablet TAKE 1 TABLET BY MOUTH EVERY DAY 90 tablet 3 01/03/2021 08/30/2021 fluticasone propionate (FLONASE) 50 MCG/ACT nasal spray [...] every 12 hours as needed for Pain 30 tablet 04/10/2021 05/09/2021 predniSONE (DELTASONE) 20 MG tabletIndications:Wh eezing Take 1 (one) tablet by mouth 2 times daily for 5 days Reasons: Wheezing 10 tablet 04/21/2021 04/26/2021 prochlorperazine (COMPAZINE) 10 MG tablet Take 10 mg by mouth every 6 hours as needed 04/27/2019 12/20/2021 saline nasal spray (OCEAN; BABY AYR) 0.65 % nasal spray [place] 2 sprays into each nostril every 2 hours as needed for Dry Nose 04/05/2020 12/20/2021 sulfamethoxazole-tri methoprim (BACTRIM DS; SEPTRA DS) 800-160 MG tabletIndications: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) Take 1 (one) tablet by mouth every Friday, Friday & Friday for 28 days 12 tablet 05/09/2021 06/06/2021 sulfamethoxazole-tri methoprim (BACTRIM DS; SEPTRA DS) 800-160 MG tabletIndications:PJ P prophylaxis s/p stem cell transplant Take 1 (one) tablet by mouth every Friday, Friday & Friday Reasons: PJP prophylaxis s/p stem cell transplant 12 tablet 3 01/03/2021 05/09/2021 vitamin D3-cholecalciferol (CHOLECALCIFEROL) 25 MCG (1000 UNITS) tablet Take 2 (two) tablets by mouth once daily 180 tablet 3 11/03/2020 06/30/2022 documented as of this encounter Plan of Treatment Upcoming Encounters Date Type Department Care Team (Late st Contact Info) Description 08/26/2024 11:00 AM TITLE INSURANCE AGENT Office Visit [facility] - Pulmonology [address] [place] [address], [place] [address] Andrew Francis MD [address] [place] [address] OF PULMONARY/[place] [address] documented as of this encounter Procedures Procedure Name Priority Date/Time Associated Diagnosis Comments XR CHEST 2VW STAT 04/21/2021 11:47 AM CDT Chest congestion documented in this encounter Results * XR CHEST 2VW (04/21/2021 11:47 AM CDT) Anatomical Region Laterality Modality Chest Radiographic Chayito [...] Saeed on 04/21/2021 at 11:45 AM Christina Noland SYSTEMS PROGRAMMER ANALYST-MANAGER OF DATA DIAGNOSTIC IMAGING ORDERABLES documented in this encounter Visit Diagnoses Diagnosis Chest congestion Other symptoms involving respiratory system and chest documented in this encounter Additional Health Concerns Infection Onset Date Last Indicated Resolved Time COVID-19 Under Investigation 04/21/2021 04/21/2021 2021 6:42 AM CDT documented as of this encounter Care Teams Transportation Worker Relationship Specialty Start Date End Date Alida Marshall APRN-CNP [address] [facility] & [place] [address] PCP - General Family Medicine 12/23/20 08/29/21 Hillary Apple MD [address] [place] [address] Hematology and Oncology 03/17/19 Bill Ferrera MD [address] [place] [address] Hematology and Oncology 03/17/19 08/27/21 Tony Dumont MD [address] [place] [address] Hematology and Oncology 03/17/19 Maryjo Reinoso, HAMMER MILL OPERATOR Electronic Warfare Officer 03/17/19 Madyson Clay, PharmD 03/17/19 Dana Lala, SYSTEMS PROGRAMMER ANALYST-STRIPPER APPRENTICE [address] [place] [address] Oncology 03/17/19 Tiffanie Nguyen, SYSTEMS PROGRAMMER ANALYST-MANAGER OF DATA [address] [place] [address] Family Medicine 03/17/19 Stephanie Mahoney, RN Registered Nurse 03/17/19 10/29/21 Alycia Galvan, RN 03/17/19 10/29/21 Cesar Tavares MD Referring Physician Medical Oncology 03/23/19 Karie Jones, RN Registered Nurse 06/08/19 10/29/21 Joy Bob 09/22/19 Addison Shea, PharmD Pharmacist 09/22/19 10/29/21 documented as of this encounter
--- OUTSIDE RECORDS SUMMARY | 2024-08-18 00:22 | XMS_ITS | Encounter Summary ---
Author Organization [facility] Address [address] [place] [address] Care Team Providers Care Manager Of Loss Prevention Operations Name Role Phone Hillary Apple MD Unavailable [phone] Tony Dumont MD Unavailable [phone] Maryjo ReinosoW Unavailable Unavailable Madyson Clay PharmD Unavailable Unavaila Dana Galicia CAKE WRINGER-FIREWALL ADMINISTRATOR Unavailable [phone] Tiffanie Nguyen APRN-MANAGING COGNITIVE ENGINEER Unavailable [phone] Stephanie Mahoney RN Unavailable Unavailable Alycia Galvan RN Unavailable UnavailCesar Allen MD Unavailable [phone] Karie Jones RN Unavailable Unavailable Joy Bob Unavailable Fanta Addison Weinstein PharmD Unavailable Unavailab Ran Hoang MD Primary Care Provider Reason for Visit * Reason Comments Refill Request Encounter Details Date Type Department Care Team (Late st Contact Info) Description 10/13/2021 Refill [facility] BMT CLINIC [address] [place] [address] Tiffanie Nguyen APRN-MANAGING COGNITIVE ENGINEER [address] [place] [id number] Refill Request Social History Tobacco Use Types [...] st Contact Info) Description 08/26/2024 11:00 AM MASK FORMER Office Visit [facility] - Pulmonology [address] [place] [address], [place] [address] Andrew Francis MD [address] [place] [address] 2L DIV OF PULMONARY/[place] [address] documented as of this encounter Visit Diagnoses Diagnosis Restless legs syndrome (RLS) documented in this encounter Care Teams Manager Of Loss Prevention Operations Relationship Specialty Start Date End Date Ran Nuñez MD [address] [place] [address] PCP - General Family Medicine 08/30/21 [place] [address] [place] [address] Hematology and Oncology 03/17/19 Tony Dumont MD [address] [place] [address] Hematology and Oncology 03/17/19 Maryjo Reinoso, REYNA Perfect Binder Setter 03/17/19 Madyson Clay, PharmD 03/17/19 Dana Lala, CAKE WRINGER-FIREWALL ADMINISTRATOR [address] [facility] 2nd [place] [address] Oncology 03/17/19 Tiffanie Nguyen, CAKE WRINGER-MANAGING COGNITIVE ENGINEER [address] [place] [address] Family Medicine 03/17/19 Stephanie Mahoney, RN Registered Nurse 03/17/19 10/29/21 Alycia Galvan, RN 03/17/19 10/29/21 Cesar Tavares MD Referring Physician Medical Oncology 03/23/19 Karie Jones, RN Registered Nurse 06/08/19 10/29/21 Joy Bob 09/22/19 Addison Shea, PharmD Pharmacist 09/22/19 10/29/21 documented as of this encounter
--- OUTSIDE RECORDS SUMMARY | 2024-08-18 00:22 | XMS_ITS | Encounter Summary ---
Author Organization [facility] Address [address] [place] [address] Care Team Providers Care Cook Camp Name Role Phone Hillary Apple MD Unavailable [phone] Tony Dumont MD Unavailable [phone] Maryjo ReinosoW Unavailable Unavailable Madyson Clay PharmD Unavailable Unavaila Dana Galicia BUSINESS ANALYTICS FACULTY MEMBER-PIPE FITTER MARINE Unavailable [phone] Tiffanie Nugyen BUSINESS ANALYTICS FACULTY MEMBER-BIOMEDICAL EQUIPMENT SUPPORT SPECIALIST Unavailable [phone] Stephanie Mahoney RN Unavailable Unavailable Alycia Galvan RN Unavailable UnavailCesar Allen MD Unavailable [phone] Karie Jones RN Unavailable Unavailable Joy oBb Unavailable Fanta Addison Weinstein PharmD Unavailable Unavailab Ran Hoang MD Primary Care Provider Encounter Details Date Type Department Care Team (Late st Contact Info) Description 09/18/2021 Telephone [facility] BMT CLINIC [address] [place] [address] Stefanie Burns, ROSEMARY Social History Tobacco Use Types Packs/Day Years [...] COVID-19? No / Unsure 08/30/2021 10:25 AM BUYING AGENT documented as of this encounter Functional Status [...] Telephone Encounter - Stefanie Burns RN - 09/18/2021 12:13 PM BUYING AGENT Patient called requesting assistance communicating with Dr. Francis regarding an Rx for a portableoxygen concentrator to be sent to [facility], his home oxygen provider. As patient will be following with Dr. Francis in pulmonology office rather than BMT clinic moving forward, he was agreeable to contacting Dr. Francis's office himself by phone or MyChart. Provided office number to patient and encouraged him to call back if he is unable to resolve himself with pulmonology office. NG AGENT documented in this encounter Plan of Treatment Upcoming Encounters Date Type Department Care Team (Late st Contact Info) Description 08/26/2024 11:00 AM BUYING AGENT Office Visit [facility] - Pulmonology [address] [place] [address], [place] [address] Andrew Francis MD [address] [place] [address] DIV OF PULMONARY/[place] [address] documented as of this encounter Visit Diagnoses Not on filedocumented in this encounter Care Teams Cook Camp Relationship Specialty Start Date End Date Ran Nuñez MD [address] [place] [address] PCP - General Family Medicine 08/30/21 Hillary Apple MD [address] [place] [address] Hematology and Oncology 03/17/19 Tony Dumont MD [address] [place] [address] Hematology and Oncology 03/17/19 Maryjo Reinoso, SENIOR TELECOMMUNICATIONS SPECIALIST Senior Cyber Intelligence Analyst 03/17/19 Madyson Clay, PharmD 03/17/19 Dana Lala, BUSINESS ANALYTICS FACULTY MEMBER-PIPE FITTER MARINE [address] [facility] 2nd [place] [address] Oncology 03/17/19 Tiffanie Nguyen, BUSINESS ANALYTICS FACULTY MEMBER-BIOMEDICAL EQUIPMENT SUPPORT SPECIALIST [facility] [facility] 2nd [place] [address] Family Medicine 03/17/19 Stephanie Mahoney, RN Registered Nurse 03/17/19 10/29/21 Alycia Galvan, RN 03/17/19 10/29/21 Cesar Tavares MD Referring Physician Medical Oncology 03/23/19 Karie Jones, RN Registered Nurse 06/08/19 10/29/21 Joy Bob 09/22/19 Addison Shea, PharmD Pharmacist 09/22/19 10/29/21 documented as of this encounter
--- OUTSIDE RECORDS SUMMARY | 2024-08-18 00:22 | XMS_ITS | Encounter Summary ---
Author Organization [facility] Address [address] [facility] [place] [address] Care Team Providers Care Manager Digital Name Role Phone Hillary Apple MD Unavailable [phone] Bill Ferrera MD Unavailable [phone] Tony Dumont MD Unavailable [phone] Maryjo Reinoso [facility] Unavailable Unavailable Madyson Clay PharmD Unavailable Unavaila Dana Galicia EMPLOYMENT SUPERVISOR-MOLD TOOLER Unavailable [phone] Tiffanie Nguyen EMPLOYMENT SUPERVISOR-LICENSING ANALYST Unavailable [phone] Stephanie Mahoney RN Unavailable Unavailable Alycia Galvan RN Unavailable UnavailCesar Allen MD Unavailable [phone] Karie Jones RN Unavailable Unavailable Joy Bob Unavailable Fanta Addison Weinstein PharmD Unavailable Unavailab Alida Chang EMPLOYMENT SUPERVISOR-LICENSING ANALYST Primary Care Provider Encounter Details Date Type Department Care Team (Latest Contact Info) Description 04/21/2021 11:28 AM CDT - 04/21/2021 11:39 AM CDT Hospital Encounter [facility] [address] [place] [address] Christina Noland, EMPLOYMENT SUPERVISOR-LICENSING ANALYST [address] [place] [address] Discharge Disposition: Home or Self [...] Sign Reading Time Taken Comments Blood Pressure 140/80 04/21/2021 11:32 AM CDT Pulse 91 04/21/2021 11:32 AM CDT Temperature 36.1 ??C (97 ??F) 04/21/2021 11:32 AM CDT Respiratory Rate 18 04/21/2021 11:32 AM CDT Oxygen Saturation 98% 04/21/2021 11:32 AM CDT Inhaled Oxygen Concentration - - Weight 140.6 kg (310 lb) 04/21/2021 11:32 AM CDT Height 170.2 cm (5' 7 ) 04/21/2021 11:32 AM CDT Body Mass Index 48.55 04/21/2021 11:32 AM CDT documented in this [...] this encounter Discharge Instructions * Patient Instructions* Christina Davenport APRN-LICENSING ANALYST - 04/21/2021 12:04 PM CDT Images from the original note were not included. Your chest x-ray today did not show acute pneumonia however it did still show opacities consistent with COVID-19. These opacities have been seen on previous chest x-rays, so a COVID-19 test was obtained to check for new infection. We will call you with the test results tomorrow. Test results can also reviewed on my chart. A prednisone burst has been prescribed for your wheezing and chest congestion. Please start the medication today. Please call your primary care physician and schedule follow-up appointment for early next week. Go to the ER if your oxygen drops below 93% with oxygen, or if you develop worsening shortness of breath or chest pain. Patient Education Shortness of Breath ADVANCE SEAL DELIVERY SYSTEM MAINTAINER: Shortness of breath is a feeling that you cannot get enough air when you breathe in. You may have this feeling only during activity, or all the time. Your symptoms can range from mild to severe. Shortness of breath may be a sign of a serious health condition that needs immediate care. Seek care immediately if: ?? Your signs and symptoms are the same or worse within 24 hours of treatment. ?? The skin over your ribs or on your neck sinks in when you breathe. ?? You feel confused or dizzy. Contact your healthcare provider if: ?? You have new or worsening symptoms. ?? You have questions or concerns about your condition or care. Treatment: ?? Medicines may be used to treat the cause of your symptoms. You may need medicine to treat a bacterial infection or reduce anxiety. Other medicines may be used to open your airway, reduce swelling,or remove extra fluid. If you have a heart condition, you may need medicine to help your heart beatmore strongly or regularly. ?? Oxygen may be given to help you breathe more easily. Manage shortness of breath: ?? Create an action plan. You and your healthcare provider can work together to create a plan for how to handle shortness of breath. The plan can include daily activities, treatment changes, and whatto do if you have severe breathing problems. ?? Lean forward on your elbows when you sit. This helps your lungs expand and may make it easier tobreathe. ?? Use pursed-lip breathing any time you feel short of breath. Breathe in through your nose and then slowly breathe out through your mouth with your lips slightly puckered. It should take you twice as long to breathe out as it did to breathe in. ?? Do not smoke. Nicotine and other chemicals in cigarettes and cigars can cause lung damage and make shortness of breath worse. Ask your healthcare provider for information if you currently smoke and need help to quit. E-cigarettes or smokeless tobacco still contain nicotine. Talk to your healthcare provider before you use these products. ?? Reach or maintain a healthy weight. Your healthcare provider can help you create a safe weight loss plan if you are overweight. ?? Exercise as directed. Exercise can help your lungs work more easily. Exercise can also help you lose weight if needed. Try to get at least 30 minutes of exercise most days of the week. Follow up with your healthcare provider or specialist as directed: Write down your questions so youremember to ask them during your visits. ?? Copyright [employer] 2020 Information is for End User's use only and may not be sold, redistributed or otherwise used for commercial purposes. All illustrations and images included in CareNotes?? are the copyrighted property of [employer]. or [employer] The above information is an educational guidance counselor only. It is not intended as medical advice for individual conditions or treatments. Talk to your doctor, nurse or pharmacist before following any medical regimen to see if it is safe and effective for you. documented in this encounter Medications at Time [...] needed for Pain 30 tablet 04/10/2021 05/09/2021 prochlorperazine (COMPAZINE) 10 MG tablet Take 10 mg by mouth every 6 hours as needed 04/27/2019 12/20/2021 saline nasal spray (OCEAN; BABY AYR) 0.65 % nasal spray Wetmore 2 sprays into each nostril every 2 [...] as of this encounter Progress Notes * Christina Davenport APRN-CNP - 04/21/2021 11:34 AM CDT DPTINA TORRES History of Present Illness Patient Identification Marcello Guillen is a 50 year old male. PCP: PRASANNA Krueger Patient information was obtained from patient. History/Exam limitations: none. Patient presented to the Urgent Care ambulatory. Chief Complaint Chest congestion, cough Reason for Visit: cough, chest congestion, wheezing HPI Marcello Guillen is a 50 year old male who presents to the Urgent Care today c/o cough, wheezing and chest congestion x1 week. Some BARNES but it resolves after sitting for about 1-2 minutes. Pt is currently on 5L O2 per NC while up. He has been on home O2 since d/c from the hospital with [facility] s/t COVID in May 2020. States his overall breathing has improved since then and his O2 demand has decreased from 10L to 5L - followed by Dr. Francis and Dr. Apple. He has some dyspnea but this is chronic since his COVID-19 diagnosis in March. He has been using his albuterol inhaler at home which does temporarily improve wheezing. Was prescribed Symbicort but could not afford it. He denies any fever, chills, chest pain, palpitations or leg swelling. Hx lymphoma in remission. Past Medical History: Diagnosis Date ??? Diverticulosis ??? GERD (gastroesophageal reflux disease) taking prevacid prn ??? H/O echocardiogram 08/11/2019 ??? Lymphoma of lymph nodes ??? Multiple body piercings facial ??? Port-A-Cath in place right subclavian ??? Sleep apnea not using CPAP ??? Transient alteration of awareness 2018 during [...] OR CATHETER) Right 2019 subclavian Family History Family history unknown: Yes Current Outpatient Medications Medication Sig Dispense Refill [...] 2 (two) puffs by mouth 2 timesdaily (Patient not taking: Reported on 04/21/2021) 1 Inhaler 5 ??? clonazePAM (KLONOPIN) 1 MG tablet Take 1 (one) tablet by mouth at bedtime 30 tablet 0 ??? clonazePAM (KLONOPIN) 1 MG tablet TAKE 1 TABLET BY MOUTH AT BEDTIME FOR ANXIETY 30 tablet 0 ??? diclofenac sodium EC (VOLTAREN) 75 MG tablet TK 1 T PO BID PRF PAIN ??? escitalopram (LEXAPRO) 20 MG tablet Take 1 tablet by mouth once daily 30 tablet 11 ??? FEROSUL 325 (65 Fe) MG tablet TAKE 1 TABLET BY MOUTH EVERY DAY 90 tablet 3 ??? fluticasone propionate (FLONASE) 50 MCG/ACT nasal spray 2 SPRAYS IN EACH NOSTRIL Q DAY ??? multivitamin daily tablet Take 1 tablet by mouth daily with food ??? ondansetron, disintegrating, (ZOFRAN ODT) 8 MG tablet Dissolve 1 tablet on top of tongue then swallow with saliva every 8 hours as needed for nausea or vomiting ??? oxyCODONE, immediate release, (ROXICODONE) 5 MG tablet Take 1 (one) tablet by mouth every 12 hours as needed for Pain 30 tablet 0 ??? predniSONE (DELTASONE) 20 MG tablet Take 1 (one) tablet by mouth 2 times daily for 5 days Reasons: Wheezing 10 tablet 0 ??? prochlorperazine (COMPAZINE) 10 MG tablet Take 10 mg by mouth every 6 hours as needed (Patient not taking: Reported on 04/21/2021) ??? rOPINIRole (REQUIP) 0.25 MG tablet Take 1 (one) tablet by mouth at bedtime Reasons: Restless Leg Syndrome 90 tablet 3 ??? saline nasal spray (OCEAN; BABY AYR) 0.65 % nasal spray Wetmore 2 sprays into each nostril every 2 hours as needed for Dry Nose ??? sulfamethoxazole-trimethoprim (BACTRIM DS; SEPTRA DS) 800-160 MG tablet Take 1 (one) tablet by mouth every Friday, Friday & Friday Reasons: PJP prophylaxis s/p stem cell transplant 12 tablet 3 ??? vitamin D3-cholecalciferol (CHOLECALCIFEROL) 25 MCG (1000 UNITS) tablet Take 2 (two) tablets bymouth once daily 180 tablet 3 No current facility-administered medications for this encounter. Allergies Allergen Reactions ??? Adhesive Sensitivity Urticaria and Other Electrodes -- welps where stickers are Also, use paper tape Social History Tobacco Use ??? Smoking status: Former Smoker Packs/day: 0.50 Types: Cigarettes Start date: 1983 Quit date: 2002 Years since quittin.7 ??? Smokeless tobacco: Former User Types: Chew Quit date: 2016 Substance Use Topics ??? Alcohol use: Not Currently Review of Systems Review of Systems Constitutional: Negative for chills, diaphoresis, fever, malaise/fatigue and weight loss. HENT: Negative for congestion. Respiratory: Positive for cough, shortness of breath (with exertion) and wheezing. Gastrointestinal: Negative for blood in stool, constipation, diarrhea, melena and vomiting. Skin: Negative for rash. Neurological: Negative for headaches. Physical Exam BP 140/80 (BP SITE: LEFT ARM, BP POSITION: SITTING, BP CUFF SIZE: 11L) Pulse 91 Temp 97 ??F (36.1 ??C) (Temporal) Resp 18 Ht 1.702 m (5' 7 ) Wt (!) 140.6 kg (310 lb) SpO2 98% BMI 48.55 kg/m?? No exam data present Physical Exam Vitals and nursing note reviewed. Constitutional: General: He is not in acute distress. Appearance: Normal appearance. He is well-developed. He is not ill-appearing, toxic-appearing or diaphoretic. HENT: Head: Normocephalic. Right Ear: External ear normal. Left Ear: External ear normal. Nose: Nose normal. Eyes: Pupils: Pupils are equal, round, and reactive to light. Cardiovascular: Rate and Rhythm: Normal rate and regular rhythm. Heart sounds: Normal heart sounds, S1 normal and S2 normal. Pulmonary: Effort: Pulmonary effort is normal. No tachypnea or respiratory distress. Breath sounds: No stridor. Wheezing present. No decreased breath sounds. Comments: Diffuse coarse crackles throughout with late expiratory wheeze Musculoskeletal: Cervical back: Normal range of motion. Skin: General: Skin is warm. Capillary Refill: Capillary refill takes less than 2 seconds. Findings: No rash. Neurological: Mental Status: He is alert and oriented to person, place, and time. He is not disoriented. GCS: GCS eye subscore is 4. GCS verbal subscore is 5. GCS motor subscore is 6. Psychiatric: Speech: Speech normal. Behavior: Behavior normal. Behavior is cooperative. Thought Content: Thought content normal. Judgment: Judgment normal. Procedures Procedures Lab/SPO2 Interpretation No results found for this visit on 04/21/21. XR CHEST 2VW Result Date: 04/21/2021 Chest 2 views HISTORY: Cough, Covid FINDINGS: No prior. Heart is enlarged. There is a generalized prominence interstitial pattern suggestive of chronic change. Question superimposed peripheral opacities could represent Covid. No consolidation or pneumothorax or pleural effusion. Please correlate with pulmonary history. *Reading Radiologist: Elkin Saeed on 04/21/2021 at 11:45 AM Progress Notes Lung sounds with diffuse coarse crackles throughout and late expiratory wheezing. Will obtain chestx-ray to rule out pneumonia Ambulatory O2 95%, increased to 98% while sitting. Chest xray: peripheral opacities. No consolidation/ pneumothorax This was seen on his previous xrays dating back to March 2020. COVID-19 swab obtained to check for acute infection. Will treat patient with steroid burst and havefollow-up with PRASANNA Krueger in 1 week. Medical Decision Making I have reviewed the: Previous Chart, Vitals. I have interpreted the following results: Labs, X-Ray. Assessment ICD-10-CM 1. Chest congestion R09.89 XR CHEST 2VW SARS-COV-2 (COVID-19) INTERNAL Plan Orders Placed This Encounter ??? SARS-COV-2 (COVID-19) INTERNAL Standing Status: Standing Number of Occurrences: 1 Order Specific Question: Release to patient Answer: Immediate Order Specific Question: Is the patient experiencing any symptoms consistent with COVID (eg. Fever,cough, shortness of breath)? Answer: Yes Order Specific Question: Date of symptoms onset? Answer: 04/14/2021 Order Specific Question: Symptoms as described by CDC. (Select all that apply) Answer: Cough [[id number]] Order Specific Question: Symptoms as described by CDC. (Select all that apply) Answer: Difficulty breathing [[id number]] Order Specific Question: Symptoms as described by CDC. (Select all that apply) Answer: Fatigue [[id number]] Order Specific Question: Hospitalized for COVID-19? Answer: No Order Specific Question: Admitted to ICU for COVID-19? Answer: No Order Specific Question: First COVID-19 test? 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 Answer: No Order Specific Question: Resident in a congregate care setting? Answer: No Order Specific Question: Reason for test? Answer: Symptoms compatible with COVID-19. ??? XR CHEST 2VW Standing Status: Future Number of Occurrences: 1 Standing Expiration Date: 04/21/2022 Order Specific Question: Release to patient Answer: Immediate ??? predniSONE (DELTASONE) 20 MG tablet Sig: Take 1 (one) tablet by mouth 2 times daily for 5 days Reasons: Wheezing Dispense: 10 tablet Refill: 0 Your chest x-ray today did not show acute pneumonia however it did still show opacities consistent with COVID-19. These opacities have been seen on previous chest x-rays, so a COVID-19 test was obtained to check for new infection. We will call you with the test results tomorrow. Test results can also reviewed on my chart. A prednisone burst has been prescribed for your wheezing and chest congestion. Please start the medication today. Please call your primary care physician and schedule follow-up appointment for early next week. Go to the ER if your oxygen drops below 93% with oxygen, or if you develop worsening shortness of breath or chest pain. Follow up with PRASANNA Krueger in 2days if symptoms persist, sooner if symptoms worsen. AVS reviewed with patient. The Patient indicates understanding of these issues and agrees with the plan. Patient discharged to Home. documented in this encounter Miscellaneous Notes * Addendum Note - Christina Davenport APRN-CNP - 04/21/2021 11:39 AM CDT Encounter addended by: Christina Davenport APRN-CNP on: 2021 11:22 AM Actions taken: Order Reconciliation Section accessed, Order list changed * Addendum Note - Kaitlin Wolf CPC - 04/21/2021 11:39 AM CDTEncounter addended by: Kaitlin Wolf CPC on: 04/23/2021 11:19 AM Actions taken: Visit diagnoses modified, Charge Capture section accepted documented in this encounter Plan of Treatment Upcoming Encounters Date Type Department Care Team (Late st Contact Info) Description 08/26/2024 11:00 AM OVERHEAD DOOR TECHNICIAN Office Visit [facility] - Pulmonology [address] [place] [address], [place] [id number] Andrew Francis MD [address] OF PULMONARY/[place] [address] documented as of this encounter Procedures Procedure Name Priority Date/Time Associated Diagnosis Comments SARS-COV-2 (COVID-19) IN HOUSE Routine 04/21/2021 11:56 AM CDT Chest congestion documented in this encounter Results * SARS-COV-2 (COVID-19) INTERNAL (04/21/2021 11:56 AM CDT) COVID-19 PCR Not detected Not detected 2021 6:42 AM CDT [facility] Microbiology SPECIMEN FROM NASOPHARYNGEAL STRUCTURE / Unknown Collection / Unknown 04/21/2021 11:56 AM CDT 04/21/2021 11:56 AM CDT Narrative [facility] - 2021 6:42 AM CDT This nucleic acid amplification assay performance was validated by [facility]. This test has been authorized [...] EUA assay are available upon request. Christina Noland EMPLOYMENT SUPERVISOR-LICENSING ANALYST LAB - MICR OBIOLOGY ORDERABLES [facility] [address] [place], [place] [address] [phone] * XR CHEST 2VW (04/21/2021 11:47 AM [...] on 04/21/2021 at 11:45 AM Christina Noland APRN-[facility]NO[facility] ORDERABLES documented in this encounter Visit Diagnoses Diagnosis Chest congestion- Primary Other symptoms involving respiratory system and chest Contact with and (suspected) exposure to covid-19 Chest congestion Other symptoms involving respiratory system and chest documented in this encounter Care Teams Manager Digital Relationship Specialty Start Date End Date Alida Marshall APRN-CNP [address] [facility] [place] [address] PCP - General Family Medicine 12/23/20 08/29/21 Hillary Apple MD [address] [place] [address] Hematology and Oncology 03/17/19 [place] [address] [place] [address] Hematology and Oncology 03/17/19 08/27/21 Tony Dumont MD [address] [place] [address] Hematology and Oncology 03/17/19 Maryjo Reinoso, HR LEADER Material Preparation Worker 03/17/19 Madyson Clay, PharmD 03/17/19 Dana Lala, EMPLOYMENT SUPERVISOR-MOLD TOOLER [address] [facility] [address] [address] Oncology 03/17/19 Tiffanie Nguyen, EMPLOYMENT SUPERVISOR-LICENSING ANALYST [address] [facility] [address] [place] [address] Family Medicine 03/17/19 Stephanie Mahoney, RN Registered Nurse 03/17/19 10/29/21 Alycia Galvan, ROSEMARY 03/17/19 10/29/21 Cesar Tavares MD Referring Physician Medical Oncology 03/23/19 Karie Jones, RN Registered Nurse 06/08/19 10/29/21 Joy Bob 09/22/19 Addison Shea, PharmD Pharmacist 09/22/19 10/29/21 documented as of this encounter
--- OUTSIDE RECORDS SUMMARY | 2024-08-18 00:22 | XMS_ITS | Encounter Summary ---
Author Organization [facility] Address [address] [facility] [place] [address] Care Team Providers Care Doormaker Name Role Phone Hillary Apple MD Unavailable [phone] Bill Ferrera MD Unavailable [phone] Tony Dumont MD Unavailable [phone] Maryjo Reinoso [facility] Unavailable Unavailable Madyson Clay PharmD Unavailable Unavaila Dana Galicia WEB DESIGN SPECIALIST-FOREST PRODUCTS GATHERER Unavailable [phone] Tiffanie Nguyen WEB DESIGN SPECIALIST-DEPUTY CONTROLLER Unavailable [phone] Stephanie Mahoney RN Unavailable Unavailable Alycia Galvan RN Unavailable UnavailCesar Allen MD Unavailable [phone] Karie Jones RN Unavailable Unavailable Joy Bob Unavailable Fanta Addison Weinstein PharmD Unavailable Unavailab Alida Chang WEB DESIGN SPECIALIST-DEPUTY CONTROLLER Primary Care Provider Encounter Details Date Type Department Care Team (Late st Contact Info) Description 05/24/2021 Orders Only [facility] [address] [place] [phone] Codi Bates, PharmD Social History Tobacco Use Types Packs/Day Years Used Date Smoking Tobacco: Never Assessed Sex and Gender Information Value Date Recorded [...] st Contact Info) Description 08/26/2024 11:00 AM ART EDITOR Office Visit [facility] - Pulmonology [address] [facility], [place] [address] Andrew Francis MD [address] [facility] [address] DIV OF PULMONARY/[place] [address] documented as of this encounter Visit Diagnoses Not on filedocumented in this encounter Care Teams Doormaker Relationship Specialty Start Date End Date Alida Marshall, WEB DESIGN SPECIALIST-DEPUTY CONTROLLER [address] [facility] OF HEMATOLOGY & [place] [address] PCP - General Family Medicine 12/23/20 08/29/21 Hillary Apple MD [address] [place] [address] Hematology and Oncology 03/17/19 Bill Ferrera MD [address] [place] [address] Hematology and Oncology 03/17/19 08/27/21 Tony Dumont MD [address] [place] [address] Hematology and Oncology 03/17/19 Maryjo Reinoso, COLLAR STARCHER Floor Finisher Helper 03/17/19 Madyson Clay, PharmD 03/17/19 Dana Lala, WEB DESIGN SPECIALIST-FOREST PRODUCTS GATHERER [address] [facility] [address] [place] [address] Oncology 03/17/19 Tiffanie Nguyen, WEB DESIGN SPECIALIST-DEPUTY CONTROLLER [address] [place] [address] Family Medicine 03/17/19 Stephanie Mahoney, RN Registered Nurse 03/17/19 10/29/21 Alycia Galvan, ROSEMARY 03/17/19 10/29/21 Cesar Tavares MD Referring Physician Medical Oncology 03/23/19 Karie Jones, RN Registered Nurse 06/08/19 10/29/21 Joy Bob 09/22/19 Addison Shea, PharmD Pharmacist 09/22/19 10/29/21 documented as of this encounter
--- OUTSIDE RECORDS SUMMARY | 2024-08-18 00:22 | XMS_ITS | Encounter Summary ---
Author Organization [facility] Address [address] [facility] [place] [address] Care Team Providers Care Retort Press Operator Name Role Phone Hillary Apple MD Unavailable [phone] Tony Dumont MD Unavailable [phone] Maryjo ReinosoW Unavailable Unavailable Madyson Clay PharmD Unavailable Unavaila Dana Galicia ENVIRONMENTAL SCIENTISTS-SALES AND SERVICE OFFICER Unavailable [phone] Tiffanie Nguyen ENVIRONMENTAL SCIENTISTS-BOILER ROOM HELPER Unavailable [phone] Cesar Tavares MD Unavailable [phone] Joy Bob Unavailable Fanta Ran Augustine MD Primary Care Provider Tony Dumont MD Unavailable [phone] Shalini Segal MD Unavailable [phone] Stefanie Burns RN Unavailable UnavailFatemeh Briones RN Unavailable Unavailable Reason for Visit * Reason Onset Date Comments MEDICATION REFILL 11/22/2021 Encounter Details Date Type Department Care Team (Late st Contact Info) Description 11/22/2021 Refill [facility] [address] [place] [id number] Keena Mcclendon, ADULT HEALTH CLINICAL NURSE SPECIALIST REFILL Social History Tobacco Use Types Packs/Day [...] encounter Miscellaneous Notes * Telephone Encounter - Keena Mcclendon RN - 11/22/2021 4:03 PM CDT Refill Request Marcello Guillen CARMELO: 11/22/2021Jun due: 02/09/2022Jun scheduled: Visit date not found LRF: 10/24/2021 Qty Disp: 90 day supply for Albuterol # of refills: 3 Allergies: Allergies Allergen Reactions ??? Adhesive Sensitivity Urticaria and Other Electrodes -- welps where stickers are Also, use paper tape Pended Medication Order: Requested Prescriptions Pending Prescriptions Disp Refills ??? budesonide-formoterol (SYMBICORT) 160-4.5 MCG/ACT inhaler 10.2 g 3 Sig: Inhale 2 (two) puffs by mouth 2 times daily ??? albuterol HFA (PROVENTIL; VENTOLIN; PROAIR) 108 (90 Base) MCG/ACT inhaler 18 g 5 Sig: Inhale 2 (two) puffs by mouth every 6 hours as needed for Wheezing Reasons: Asthma documented in this encounter Plan of Treatment Upcoming Encounters Date Type Department Care Team (Late st Contact Info) Description 08/26/2024 11:00 AM TANK CREWMEMBER Office Visit [facility] - Pulmonology [address] [facility], [place] [address] Andrew Francis MD [address] [place] [address] 2L DIV OF PULMONARY/[place] [address] documented as of this encounter Visit Diagnoses Not on filedocumented in this encounter Care Teams Retort Press Operator Relationship Specialty Start Date End Date Ran Nuñez MD [address] [place] [phone] PCP - General Family Medicine 08/30/21 Hillary Apple MD [facility] [place] [address] Hematology and Oncology 03/17/19 Tony Dumont MD [address] [place] [address] Hematology and Oncology 03/17/19 Maryjo Reinoso, TELEVISION MAINTENANCE MAN Tool And Production Planner 03/17/19 Madyson Clay, PharmD 03/17/19 Dana Lala, ENVIRONMENTAL SCIENTISTS-SALES AND SERVICE OFFICER [address] 2nd [place] [address] Oncology 03/17/19 Tiffanie Nguyen, ENVIRONMENTAL SCIENTISTS-BOILER ROOM HELPER [address] 2nd [place] [address] Family Medicine 03/17/19 Cesar Tavares MD [address] 2nd [place] [address] Referring Physician Medical Oncology 03/23/19 Joy Bob 09/22/19 Tony Dumont MD [address] [place] [address] Hematology and Oncology 10/30/21 Shalini Segal MD [address] [facility] OF HEMATOLOGY & [place] [address] Job Specification Writer/Oncologist Hematology and Oncology 10/30/21 Stefanie Burns, RN Registered Nurse 10/30/21 Fatemeh Bolaños, RN Registered Nurse 10/30/21 documented as of this encounter
--- OUTSIDE RECORDS SUMMARY | 2024-08-18 00:22 | XMS_ITS | Encounter Summary ---
Author Organization [facility] Address [address] [facility] [place] [address] Care Team Providers Care Vertica Architect Name Role Phone Hillary Apple MD Unavailable [phone] Bill Ferrera MD Unavailable [phone] Tony Dumont MD Unavailable [phone] Maryjo Reinoso [facility] Unavailable Unavailable Madyson Clay PharmD Unavailable Unavaila Dana Galicia FRUIT THINNER-STONER OUT Unavailable [phone] Tiffanie Nguyen FRUIT THINNER-CHEMICAL MANAGER Unavailable [phone] Stephanie Mahoney RN Unavailable Unavailable Alycia Galvan RN Unavailable UnavailCesar Allen MD Unavailable [phone] Karie Jones RN Unavailable Unavailable Joy Bob Unavailable Fanta Addison Weinstein PharmD Unavailable Unavailab Alida Chang FRUIT THINNER-CHEMICAL MANAGER Primary Care Provider Reason for Visit * Reason Comments Refill Request Encounter Details Date Type Department Care Team (Late st Contact Info) Description 04/19/2021 Refill [facility] [address] [place] [address] Bill Ferrera MD [address] [place] [address] Refill Request Social History Tobacco Use Types [...] st Contact Info) Description 08/26/2024 11:00 AM SOCIAL SCIENTIST Office Visit [facility] - Pulmonology [address] [facility], [place] [address] Andrew Francis MD [address] [place] [address] DIV OF PULMONARY/[place] [address] documented as of this encounter Visit Diagnoses Not on filedocumented in this encounter Additional Health Concerns Infection Onset Date Last Indicated Resolved Time COVID-19 Under Investigation 04/21/2021 04/21/2021 2021 6:42 AM CDT documented as of this encounter Care Teams Vertica Architect Relationship Specialty Start Date End Date Alida Marshall APRN-CHEMICAL MANAGER [address] [facility] DIV OF HEMATOLOGY & [place] [address] PCP - General Family Medicine 12/23/20 08/29/21 Hillary Apple MD [address] [place] [address] Hematology and Oncology 03/17/19 Bill Ferrera MD [address] [place] [address] Hematology and Oncology 03/17/19 08/27/21 Tony Dumont MD [address] [place] [address] Hematology and Oncology 03/17/19 Maryjo Reinoso, [facility] Church History Professor 03/17/19 Madyson Clay, PharmD 03/17/19 Dana Lala, FRUIT THINNER-STONER OUT [address] [place] [address] 2nd [place] [address] Oncology 03/17/19 Tiffanie Nguyen, FRUIT THINNER-CHEMICAL MANAGER [address] [place] [address] 2nd [place] [address] Family Medicine 03/17/19 Stephanie Mahoney, RN Registered Nurse 03/17/19 10/29/21 Alycia Galvan, ROSEMARY 03/17/19 10/29/21 Cesar Tavares MD Referring Physician Medical Oncology 03/23/19 Karie Jones, RN Registered Nurse 06/08/19 10/29/21 Joy Bob 09/22/19 Addison Shea, PharmD Pharmacist 09/22/19 10/29/21 documented as of this encounter
--- OUTSIDE RECORDS SUMMARY | 2024-08-18 00:22 | XMS_ITS | Encounter Summary ---
Author Organization [facility] Address [address] [facility] [place] [address] Care Team Providers Care Jalousie Installer Name Role Phone Hillary Apple MD Unavailable [phone] Bill Ferrera MD Unavailable [phone] Tony Dumont MD Unavailable [phone] Maryjo Reinoso [facility] Unavailable Unavailable Madyson Clay PharmD Unavailable Unavaila Dana Galicia FLAVORING MAKER-MANAGEMENT ENGINEER Unavailable [phone] Tiffanie Nguyen APRN-BRUSH FILLER HAND Unavailable [phone] Stephanie Mahoney RN Unavailable Unavailable Alycia Galvan RN Unavailable UnavailCesar Allen MD Unavailable [phone] Karie Jones RN Unavailable Unavailable Joy Bob Unavailable Fanta Addison Weinstein PharmD Unavailable Unavailab Alida Chang APRN-BRUSH FILLER HAND Primary Care Provider Encounter Details Date Type Department Care Team (Late st Contact Info) Description 05/24/2021 Telephone [facility] [address] [place] [address] Tiffanie Nguyen APRN-CNP [address] [place] [id number] Social History Tobacco Use Types Packs/Day Years [...] encounter Miscellaneous Notes * Telephone Encounter - Tiffanie Nguyen APRN-CNP - 05/24/2021 9:03 AM CDT Completed peer to peer for authorization of CT chest abdomen pelvis for lymphoma screening. Auth [id number], good from 05/23/21 through 06/21/21. MISSY [facility] documented in this encounter Plan of Treatment Upcoming Encounters Date Type Department Care Team (Late st Contact Info) Description 08/26/2024 11:00 AM TRAVEL MED SURG RN Office Visit [facility] - Pulmonology [address] [place] [address], [place] [address] Andrew Francis MD [address] [place] [address] 2L DIV OF PULMONARY/[place] [address] documented as of this encounter Visit Diagnoses Not on filedocumented in this encounter Care Teams Jalousie Installer Relationship Specialty Start Date End Date Alida Marshall APRN-CNP [address] [facility] OF H[facility] [place] [address] PCP - General Family Medicine 12/23/20 08/29/21 Hillary Apple MD [address] [place] [address] Hematology and Oncology 03/17/19 Bill Ferrera MD [address] [place] [address] Hematology and Oncology 03/17/19 08/27/21 Tony Dumont MD [address] [place] [address] Hematology and Oncology 03/17/19 Maryjo Reinoso, BLIND HOOKER Solid Die Cutter 03/17/19 Madyson Clay, PharmD 03/17/19 Dana Lala, FLAVORING MAKER-MANAGEMENT ENGINEER [address] [place] [address] [address] [address] Oncology 03/17/19 Tiffanie Nguyen FLAVORING MAKER-BRUSH FILLER HAND [address] [place] [address] 2nd [place] [address] Family Medicine 03/17/19 Stephanie Mahoney, RN Registered Nurse 03/17/19 10/29/21 Alycia Galvan, RN 03/17/19 10/29/21 Cesar Tavares MD Referring Physician Medical Oncology 03/23/19 Karie Jones, RN Registered Nurse 06/08/19 10/29/21 Joy Bob 09/22/19 Addison Shea, PharmD Pharmacist 09/22/19 10/29/21 documented as of this encounter
--- OUTSIDE RECORDS SUMMARY | 2024-08-18 00:22 | XMS_ITS | Encounter Summary ---
Author Organization [facility] Address [address] [facility] [place] [address] Care Team Providers Care Womens Volleyball Coach Name Role Phone Hillary Apple MD Unavailable [phone] Tony Dumont MD Unavailable [phone] Maryjo ReinosoW Unavailable Unavailable Madyson Clay PharmD Unavailable UnavailDana Alcantar STUNTMAN-TOOL ROOM MACHINIST Unavailable [phone] Tiffanie Nguyen STUNTMAN-INDEPENDENT MARKETING CONSULTANT Unavailable Cesar Tavares MD Unavailable [phone] Joy Bob Unavailable Fanta Ran Augustine MD Primary Care Provider Tony Dumont MD Unavailable [phone] Shalini Segal MD Unavailable [phone] Stefanie Burns RN Unavailable UnavailFatemeh Briones RN Unavailable Unavailable Reason for Visit * Reason Comments Refill Request Encounter Details Date Type Department Care Team (Late st Contact Info) Description 11/12/2021 Refill [facility] [address] [place] [address] Tiffanie Nguyen APRN-INDEPENDENT MARKETING CONSULTANT [address] [place] [phone] Refill Request Social History Tobacco Use Types [...] st Contact Info) Description 08/26/2024 11:00 AM STORE GROUP MANAGER Office Visit [facility] - Pulmonology [address] [place] [address], [place] [address] Andrew Francis MD [address] [place] [address] 2[address] DIV OF PULMONARY/[place] [address] documented as of this encounter Visit Diagnoses Not on filedocumented in this encounter Care Teams Womens Volleyball Coach Relationship Specialty Start Date End Date Ran Nuñez MD [address] [place] [address] PCP - General Family Medicine 08/30/21 Hillary Apple MD [address] [place] [address] Hematology and Oncology 03/17/19 Tony Dumont MD [address] [place] [address] Hematology and Oncology 03/17/19 Maryjo Reinoso, REYNA Sales Office Assistant 03/17/19 Madyson Clay, PharmD 03/17/19 Dana Lala, STUNTMAN-TOOL ROOM MACHINIST [address] 2nd [place] [address] Oncology 03/17/19 Tiffanie Nguyen, STUNTMAN-INDEPENDENT MARKETING CONSULTANT [address] [facility] 2nd [place] [address] Family Medicine 03/17/19 Cesar Tavares MD [address] [facility] [place] [address] Referring Physician Medical Oncology 03/23/19 Joy Bob 09/22/19 Tony Dumont MD [address] [place] [address] Hematology and Oncology 10/30/21 Shalini Segal MD [address] [facility] OF HEMATOLOGY & [place] [address] Dust Collector Treater/Oncologist Hematology and Oncology 10/30/21 Stefanie Burns, RN Registered Nurse 10/30/21 Fatemeh Bolaños, RN Registered Nurse 10/30/21 documented as of this encounter
--- OUTSIDE RECORDS SUMMARY | 2024-08-18 00:22 | XMS_ITS | Encounter Summary ---
Author Organization [facility] Address [address] [place] [address] Care Team Providers Care Maintenance Man Name Role Phone Hillary Apple MD Unavailable [phone] Tony Dumont MD Unavailable [phone] Maryjo Reinoso IMAGING SCIENCE PROFESSOR Unavailable Unavailable Madyson Clay PharmD Unavailable Unavaila Dana Galicia CRYPTOLOGIST-MEDICAL POLICY SPECIALIST Unavailable [phone] Tiffanie Nguyen APRN-RECEIVING AND PROCESSING SUPERVISOR Unavailable [phone] Stephanie Mahoney RN Unavailable Unavailable Alycia Galvan RN Unavailable UnavailCesar Allen MD Unavailable [phone] Karie Jones RN Unavailable Unavailable Joy Bob Unavailable Fanta Addison Weinstein PharmD Unavailable Unavailab Ran Hoang MD Primary Care Provider Encounter Details Date Type Department Care Team (Latest Contact Info) Description 08/30/2021 10:48 AM CARBON FURNACE OPERATOR HELPER - 08/30/2021 11:59 PM CARBON FURNACE OPERATOR HELPER Hospital Encounter [facility] [address] [place] [address] Christina Espinoza APRN-RECEIVING AND PROCESSING SUPERVISOR [address] [facility] [place] [address] [place] [address] Tiffanie Nguyen APRN-RECEIVING AND PROCESSING SUPERVISOR [address] [place] [address] Keena Loving, wood handler Disposition: Home or Self Care Social History [...] COVID-19? No / Unsure 08/30/2021 10:25 AM CARBON FURNACE OPERATOR HELPER documented as of this encounter Last Filed Vital Signs Vital Sign Reading Time Taken Comments Blood Pressure 130/71 08/30/2021 11:15 AM CARBON FURNACE OPERATOR HELPER Pulse 77 08/30/2021 11:15 AM CARBON FURNACE OPERATOR HELPER Temperature 37.1 ??C (98.7 ??F) 08/30/2021 11:[address] Respiratory Rate 18 08/30/2021 11:15 AM CARBON FURNACE OPERATOR HELPER Oxygen Saturation 96% 08/30/2021 11:15 AM CARBON FURNACE OPERATOR HELPER Inhaled Oxygen Concentration - - Weight - - Height - - Body Mass Index - - documented in this encounter Functional Status Functional [...] this encounter Discharge Instructions * Patient Instructions* Tiffanie Nguyen, PRASANNA - 08/30/2021 1:51 PM CARBON FURNACE OPERATOR HELPER STOP iron supplement Schedule follow up with PCP to manage all prescriptions, klonopin and oxycodone should be filled through them as we will not see you frequently. Will transfer lymphoma follow up to Dr. Tavares, his team will be updated with plan after CT results ON FURNACE OPERATOR HELPER documented in this encounter Medications at Time [...] (OCEAN; BABY AYR) 0.65 % nasal spray [place] 2 sprays into each nostril every 2 hours as needed for Dry Nose 04/05/2020 12/20/2021 sulfamethoxazole-tri methoprim (BACTRIM DS; SEPTRA DS) 800-160 MG tablet every Friday, Friday & Friday08/11/2021 08/31/2021 vitamin D3-cholecalciferol (CHOLECALCIFEROL) 25 MCG (1000 UNITS) tablet Take 2 (two) tablets by mouth once daily 180 tablet 3 11/03/2020 06/30/2022 documented as of this encounter Progress Notes * Keena Loving RN - 08/30/2021 3:26 PM CST Patient presented today for 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 Reviewed titer history and planned immunizations with interdisciplinary team. No significant interactions noted among immunizations to be given today. 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 Patient afebrile today and without signs/symptoms of infection. Education provided on vaccines to be administered today, including necessity of re-vaccination after transplant, to report signs and symptoms of adverse reactions, and possible side effects of vaccinations including mild soreness at injection sites. Patient verbalized understanding and agreement. Pneumovax and Twinrix vaccinations given and explained. Patient tolerated injections well. Patient will be due for titers in four months. 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 INTERVAL HISTORY Aurelio presents to clinic ambulatory Has had insurance issues, now resolved and is on Medicare. Last seen 6 months ago Lowest his pulse ox has been was 74% after walking. HR goes up and he gets headache Hasn't had headache in 4 days from hypoxia, realized that is sats < 70% he will have headache and needs oxy, so has been trying to avoid taking oxy if possible Uses 3L O2 with activity, no O2 needed at rest or sleeping Has been doing edibles, not smoking marijuana Asking to be Covid swabbed, was at [employer] and some of the kids were sick with symptoms. He kept his mask on the whole time. Has had no change in symptoms Will have dry cough after using inhaler, hears himself wheezing frequently No N/V No diarrhea or constipation Has been having some pain to left kidney at times. Intermittent ache. Trying to drink more water as he primarily drinks caffeine beverages Hasn't done sleep study or cardiopulmonary rehab due to insurance issues the past few months Re-established with PCP Missed PFTs this morning due to oversleeping ROS: A comprehensive review of systems was negative except for: as noted above MEDICATIONS FOR CURRENT ENCOUNTER: Current Outpatient Medications Medication Sig ??? acetaminophen (TYLENOL) 325 MG tablet Take 1 tablet by mouth every 4 hours as needed Maximum allowable Acetaminophen amount = 4 Grams (4000 mg) / 24 hours. ??? acyclovir (ZOVIRAX) 400 MG tablet TAKE 2 TABLETS BY MOUTH TWICE DAILY ??? albuterol HFA (PROVENTIL;VENTOLIN;PROAIR) 108 (90 Base) MCG/ACT inhaler Inhale 2 puffs by mouthevery 4 hours ??? albuterol HFA (PROVENTIL;VENTOLIN;PROAIR) 108 (90 Base) MCG/ACT inhaler Inhale 2 (two) puffs bymouth every 6 hours as needed for Wheezing Reasons: Asthma ??? budesonide-formoterol (SYMBICORT) 160-4.5 MCG/ACT inhaler Inhale 2 (two) puffs by mouth 2 timesdaily (Patient not taking: Reported on 04/21/2021) ??? clonazePAM (KLONOPIN) 1 MG tablet Take 1 (one) tablet by mouth at bedtime ??? diclofenac sodium EC (VOLTAREN) 75 MG tablet TK 1 T PO BID PRF PAIN ??? escitalopram (LEXAPRO) 20 MG tablet TAKE 1 TABLET BY MOUTH EVERY DAY ??? FEROSUL 325 (65 Fe) MG tablet TAKE 1 TABLET BY MOUTH EVERY DAY ??? fluticasone propionate (FLONASE) 50 MCG/ACT nasal [...] every 12 hours as needed for Pain ??? penicillin V potassium (VEETIDS) 250 MG tablet Take 1 (one) tablet by mouth 2 times daily ??? prochlorperazine (COMPAZINE) 10 MG tablet Take 10 mg by mouth every 6 hours as needed (Patient not taking: Reported on 04/21/2021) ??? rOPINIRole (REQUIP) 0.25 MG tablet Take 1 (one) tablet by mouth at bedtime Reasons: Restless Leg Syndrome ??? saline nasal spray (OCEAN; BABY AYR) 0.65 % nasal spray [place] 2 sprays into each nostril every 2 hours as needed for Dry Nose ??? vitamin D3-cholecalciferol (CHOLECALCIFEROL) 25 MCG (1000 UNITS) tablet Take 2 (two) tablets bymouth once daily Current Facility-Administered Medications Medication ??? COVID-19 (Pfizer) 12y+ mRNA Vaccine (Purple Cap) injection 1 Dose VITALS: Vitals: 08/30/21 1115 BP: 130/71 Pulse: 77 Resp: 18 Temp: 98.7 ??F SpO2: 96% Wt Readings from Last 3 Encounters: 04/21/21 (!) 140.6 kg (310 lb) 02/15/21 (!) 139.3 kg (307 lb 0.9 oz) 12/20/20 (!) 141.2 kg (311 lb 5 oz) PHYSICAL EXAM: Karnofsky/ECO/2 General appearance - alert, well appearing, and in no distress Mental status - alert, oriented to person, place, and time Chest - wheezing cleared with strong cough, O2 with activity Heart - normal rate, regular rhythm, normal S1, S2, no murmurs, rubs, clicks or gallops Abdomen - soft, nontender, nondistended, no masses or organomegaly Extremities - peripheral pulses normal, no pedal edema, no clubbing or cyanosis Skin - normal coloration and turgor, no rashes, no suspicious skin lesions noted LABS: Recent Labs Component Name 08/30/21 1136 02/15/21 1325 12/20/20 1035 12/20/20 1035 11/16/20 1120 09/28/20 1438 09/28/20 1438 03/18/20 2357 WBC 12.6* 16.0* - 12.5* 11.7* - 10.2 - RBC 4.19* 4.27* - 4.28* 4.31 - 4.59 - HGB 13.4 13.4 - 12.8 12.7* - 12.3* - HCT 39.1 39.5 - 37.5 37.4* - 38.5* - MCV 93.3 92.5 - 87.6 86.8 - 83.9 - MCH 32.0 31.4 - 29.9 29.5 - 26.8* - MCHC 34.3 33.9 - 34.1 34.0 - 31.9* - PLTCOUNT 274 366 - 350 368 - 470* - RDWSD 56.0* 57.5* - 60.7* 66.4* - 76.1* - RDW 16.3* 16.8* - 18.9* 20.9* - 25.6* - MPV 12.3 10.5 - 11.0 11.0 - 9.9 - NRBCABS 0.00 0.00 - 0.00 0.00 - 0.00 - NRBCAUTOPCT 0.0 0.0 - 0.0 0.0 - 0.0 - NEUTPCT 58.0 - - - 54.6 - 49.6 - LYMPHSPCT 31.2 - - - 33.4 - 33.4 - MONOPCT 6.1 - - - 6.6 - 7.5 - EOSPCT 3.3 1 - - 3.7 - 7.3* - BASOPCT 1.1 - - - 1.4 - 1.9* - IMMGRANSPCT 0.3 - - - 0.3 - 0.3 - NEUTABS 7.3* 10.24* - 7.75* 6.4 - 5.1 - LYMPHS 3.9 5.44* - 4.50* 3.9* - 3.4* - MONO 0.77 0.16* - - 0.77* - 0.77* - EOS 0.42 0.16 - - 0.43 - 0.75* - BASO 0.14* - - - 0.16* - 0.19* - TOTCELLCNT - 100 - 100 - - - - - = values in this interval not displayed. Recent Labs Component Name 02/15/21132412/20/20103411/16/20 1120 BUN 13 12 12 CREATININE 1.12 1.06 1.0 NA 143 142 144 POTASSIUM 4.5 4.7* 4.9* CL 108* 108* 110* CO2 30* 27 24 CALCIUM 9.4 9.0 9.1 PROT 6.4 6.5 6.3 ALB 3.9 3.7 3.8 TBILI 0.2 0.2 0.2 ALKPHOS 122 107 112 ALT 51 41 45 AST 26 26 30 ANIONGAP 10 12 15 BCR 12 11 12 OSMOLALITY 296 294 298 AGRATIO 1.6 1.3 1.5 EGFR 76* 81* >60 Recent Labs Component Name 02/15/21132412/20/20103411/16/20 1120 MAGNESIUM 1.8 2.0 1.9 Recent Labs Component Name 02/15/21132412/20/20103411/16/20 1120 PHOS 2.5* 2.1* 2.0* IgG 08/30/21 416 CD4 (08/30/21) 353, can stop Bactrim Iron 138, can stop iron supplement Vitamin D - 35, continue daily vitamin D as this is low end of normal FLP (for PCP): Recent Labs Component Name 08/30/21 1136 09/09/19 1242 CHOL 207* 214* TRIG 87 192* HDL 38* - LDLCALC 152* - PSA (for PCP) Recent Labs Component Name 08/30/21 1136 09/09/19 1242 PSA [address] C/A/P (08/30/21) 1.Interval improvement in persistent reticulation, cystic changes and bronchiectasis with mild volume loss bilaterally, representing sequela of Covid pneumonia. 2.Left-sided nonobstructing nephrolithiasis with no evidence of hydronephrosis. 3.Sigmoid colonic diverticulosis without evidence of diverticulitis. PFTs (08/30/21) missed due to oversleeping, will complete on 09/03/21 ASSESSMENT: Marginal Zone Lymphoma in CR2 pre-transplant Schema: 5A Prep: BEAM, Cell count 10.4 x 10^6 CD34+cells/kg in 5 bags day [address] A/P -- BMBx completed (03/03/20) c/w CR - repeat disease eval today (08/30/21) with no concerns for lymphoma, continued CR - will release back to Dr. Tavares ?? 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 Remained positive until 12/20/20. - received remdesivir 03/08 - 03/12/20 & convalescent plasma 03/10/20, completed steroids - continue albuterol PRN; continue Symbicort BID - O2 NC to keep sats >90, RA with rest. Aurelio is requesting 5L portable O2 concentrator through [employer] so he can be more mobile and not rely solely on O2 tank at home - received IVIG monthly, x 8 doses (through 02/15/21). Stopped due to insurance lapse. - follows Dr. Francis outpatient, seen today 08/30/21. Will get PFTs 09/03/21 and f/u OP with Dr. Francis > CT chest non-contrast as above, improved > ECHO with bubble study (11/16/20) as above > unable to complete cardiopulmonary rehab due to loss of insurance x 6 months. Has been doing own exercises at home and has improved > nocturnal pulse oximetry study given weight gain and fibrotic lungs, hasn't been wearing O2 atnight and if he has LISSA this could worsen his symptoms- Was never sent the pulse ox. Will refer himto sleep medicine given length of time since last sleep study and need for new CPAP settings > will f/u with Dr. Francis in his clinic outside of BMT clinic Nephrolithiasis - likely cause of intermittent discomfort to left side. Nonobstructing. Encouraged increased hydration and minimizing caffeine. If pain persists or worsens consider urology consult. PCP to follow Anemia - resolved, repeat iron 138. Stop ferrous sulfate. Migraine Headaches - improved - occur when O2 drops and HR increases, improving in frequency - saw neurology 10/06/20, no changes to plan - minimize hypoxic episodes, minimize oxycodone use due to risk of rebound headache. -Tylenol PRN, oxycodone if no relief Pertinent Medical Hx: - Anxiety/Depression - Lexapro 20 mg daily; klonopin 1 mg QHS -- PCP to manage anxiety/depression, encouraged Aurelio to reach out to PCP about this - Restless leg syndrome: requip 0.25 mg QHS - Right IJ venous clot 09/27/19: eliquis stopped Jun 2020 Immunization Immunization History Administered Date(s) Administered ??? DTAP [...] Hzv Vacc Recombinant Inj Im 07/14/2020, 09/28/2020 PLAN: - STOP ferrous sulfate - STOP bactrim - increase hydration and decrease caffeine with kidney stone noted on CT - missed PFTs, will complete on 09/03/21 - saw Dr. Francis in clinic today, lungs have improved mildly. Will try and coordinate overnight pulse oximeter study. Continue O2 with activity. Will follow with Dr. Francis in his pulm clinic rather than in BMT clinic - CT C/A/P for disease screening c/w CR. Release back to Dr. Tavares for follow up - vaccines given today: Covid booster, Pneumovax and Twinrix. Will be due for titers in 4 months (December 2021) - cholesterol and PSA drawn for PCP, will send results and note to Dr. Nuñez. Aurelio should transition anxiety treatment to PCP, we will not manage prescriptions anymore Disposition: Release from BMT clinic at this time. Release to Dr. Tavares for lymphoma follow up. Dr. Francis will follow him in his pulmonary clinic. Aurelio should continue routine care with PCP, Dr. Nuñez. Will update team with plan. MISSY [facility]- [facility] ON FURNACE OPERATOR HELPER Associated attestation - Hillary Apple MD - 09/05/2021 12:21 PM CARBON FURNACE OPERATOR HELPER I did not see Aurelio on 08/30/21 but discussed his case with Tiffanie Nguyen. Aurelio has had to reschedule his visits on numerous occasions due to insurance lapses We had planned for this to be his final visit in BMT as he no longer has transplant-related needs His pulmonary status and CT lung findings are slowly improving He will continue f/u with Dr. Francis CT today is suggestive of ongoing CR He is s/p splenectomy and so we'd like to continue PCN VK prophylaxis until we can do titers in December2021 CoViD primary series completed today and should get 4th booster in 5 months Will continue f/u with PCP for narcotic/BZD refills I will update Dr. Tavares as we had planned to transition back to Dr. Tavares before his CoViD illness I am happy to see Mr. Luis any time he or Dr. Tavares would like in our non- transplant clinic Hillary Apple MD MSc registered nursing professor Interim Director, Division of Hematology/Oncology [facility] Addendum on 09/05/21 I appreciate the opportunity to update Dr. Tavares He will schedule Aurelio for a visit in about 3 months I think yearly scans are reasonable q4-6 month clinical f/u and low threshold to scan in between for symptom/exam concerns I also let Dr. Tavares know that Aurelio already has a f/u with Dr. Francis in November Because Aurelio is asplenic and has had CoViD with impaired lung reserve, I asked Dr. Tavares to keep both the PCN VK and ACV on until we assess titers in December 2021. I hope to update Dr. Tavares after the titers result. Hillary Apple MD MSc registered nursing professor Interim Director, Division of Hematology/Oncology [facility] documented in this encounter Plan of Treatment Upcoming Encounters Date Type Department Care Team (Late st Contact Info) Description 08/26/2024 11:00 AM CARBON FURNACE OPERATOR HELPER Office Visit [facility] - Pulmonology [address] [place] [address], [place] [id number] Andrew Francis MD [address] [place] [address] 2L DIV OF PULMONARY/[place] [address] documented as of this encounter Procedures Procedure Name Priority Date/Time Associated Diagnosis Comments FLOW CYTOMETRY T-HELPER CELLS (CD4) COUNT Routine 08/30/2021 11:36 AM CARBON FURNACE OPERATOR HELPER Diffuse large B-cell lymphoma, unspecified body region (HCC) S/P autologous bone marrow transplantation (HCC) PSA FREE + TOTAL PANEL Routine 08/30/2021 11:36 AM CARBON FURNACE OPERATOR HELPER Diffuse large B-cell lymphoma, unspecified body region (HCC) S/P autologous bone marrow transplantation (HCC) VARICELLA ZOSTER ANTIBODY IGG Routine 08/30/2021 11:36 AM CARBON FURNACE OPERATOR HELPER Diffuse large B-cell lymphoma, unspecified body region (HCC) S/P autologous bone marrow transplantation (HCC) VITAMIN D 25-HYDROXY Routine 08/30/2021 11:36 AM CARBON FURNACE OPERATOR HELPER Vitamin D deficiency CBC W AUTO DIFFERENTIAL STAT 08/30/2021 11:36 AM CARBON FURNACE OPERATOR HELPER Diffuse large B-cell lymphoma, unspecified body region (HCC) COMPREHENSIVE METABOLIC PANEL STAT 08/30/2021 11:36 AM CARBON FURNACE OPERATOR HELPER Diffuse large B-cell lymphoma, unspecified body region (HCC) PHOSPHORUS BLOOD STAT 08/30/2021 11:3 6 AM CARBON FURNACE OPERATOR HELPER Diffuse large B-cell lymphoma, unspecified body region (HCC) MAGNESIUM BLOOD STAT 08/30/2021 11:36 AM CARBON FURNACE OPERATOR HELPER Diffuse large B-cell lymphoma, unspecified body region (HCC) IRON BLOOD Routine 08/30/2021 11:36 AM CARBON FURNACE OPERATOR HELPER Iron deficiency anemia, unspecified iron deficiency anemia type IGG BLOOD Routine 08/30/2021 11:36 AM CARBON FURNACE OPERATOR HELPER Diffuse large B-cell lymphoma, unspecified body region (HCC) LIPID PROFILE Routine 08/30/2021 11:36 AM CARBON FURNACE OPERATOR HELPER Diffuse large B-cell lymphoma, unspecified body region (HCC) S/P autologous bone marrow transplantation (HCC) documented in this encounter Results * VITAMIN D 25-HYDROXY (08/30/2021 11:36 AM CARBON FURNACE OPERATOR HELPER) Pathologist [facility] Vitamin D, 25 Hydroxy 35.0 30.0 - 80.0 ng/mL 08/30/2021 12:58 PM CARBON FURNACE OPERATOR HELPER [facility] Comment: The recommendations for 25-Hydroxy Vitamin D [...] Unknown Venipuncture / Unknown 08/30/2021 11:36 AM CARBON FURNACE OPERATOR HELPER 08/30/2021 11:46 AM CARBON FURNACE OPERATOR HELPER Tiffanie Nguyen CRYPTOLOGIST-RECEIVING AND PROCESSING SUPERVISOR LAB - CHEMISTRY ORDERABLES Performing Organization Address [facility] [place]/[facility]/ZIP Co de Phone Number [address] [address], [facility] [phone] * IRON BLOOD (08/30/2021 11:36 AM CARBON FURNACE OPERATOR HELPER) [facility] Iron 138 50 - 175 ug/dL 08/30/2021 12:39 PM CARBON FURNACE OPERATOR HELPER [facility] Blood BLOOD SPECIMEN / Unknown Venipuncture / Unknown 08/30/2021 11:36 AM CARBON FURNACE OPERATOR HELPER 08/30/2021 11:44 AM CARBON FURNACE OPERATOR HELPER Lara Buss CRYPTOLOGIST-RECEIVING AND PROCESSING SUPERVISOR LAB - CHEMISTRY ORDERABLES [address] [address], [facility] [phone] * (ABNORMAL) IGG BLOOD (08/30/2021 11:36 AM CARBON FURNACE OPERATOR HELPER) IgG 416(L) 767-1,590 mg/dL 08/30/2021 12:11 PM CARBON FURNACE OPERATOR HELPER [facility] Blood BLOOD SPECIMEN / Unknown Venipuncture / Unknown 08/30/2021 11:36 AM CARBON FURNACE OPERATOR HELPER 08/30/2021 11:44 AM CARBON FURNACE OPERATOR HELPER Tiffanie Nguyen CRYPTOLOGIST-RECEIVING AND PROCESSING SUPERVISOR LAB - CHEMISTRY ORDERABLES [address] [address], [facility] [phone] * (ABNORMAL) PHOSPHORUS BLOOD (08/30/2021 11:36 AM CARBON FURNACE OPERATOR HELPER) Phosphorus 1.9(L) 2.8 - 5.1 mg/dL 08/30/2021 12:10 PM CARBON FURNACE OPERATOR HELPER [facility] Blood BLOOD SPECIMEN / Unknown Venipuncture / Unknown 08/30/2021 11:36 AM CARBON FURNACE OPERATOR HELPER 08/30/2021 11:46 AM CARBON FURNACE OPERATOR HELPER Tiffanie Nguyen CRYPTOLOGISTTravelPi LAB - CHEMISTRY ORDERABLES Performing Organization Address City/[facility]/ZIP Co de Phone Number [address] [address], [place] [phone] * MAGNESIUM BLOOD (08/30/2021 11:36 AM CARBON FURNACE OPERATOR HELPER) Magnesium 1.9 1.6 - 2.6 mg/dL 08/30/2021 12:10 PM CARBON FURNACE OPERATOR HELPER [facility] Blood BLOOD SPECIMEN / Unknown Venipuncture / Unknown 08/30/2021 11:36 AM CARBON FURNACE OPERATOR HELPER 08/30/2021 11:46 AM CARBON FURNACE OPERATOR HELPER Tiffanie Nguyen CRYPTOLOGISTSeafileRECEIVING AND PROCESSING SUPERVISOR LAB - CHEMISTRY ORDERABLES [address] [place] [address] [phone] * (ABNORMAL) CBC W AUTO DIFFERENTIAL (08/30/2021 11:36 AM CARBON FURNACE OPERATOR HELPER) WBC 12.6(H) 3.5 - 10.5 10? 3 /uL 08/30/2021 12:02 PM [facility] RBC 4.19(L) 4.30 - 5.70 10? 6 /uL 08/30/2021 12:02 PM [facility] Hemoglobin 13.4 12.0 - 17.6 g/dL 08/30/2021 12:02 PM [facility] Hematocrit 39.1 35.2 - 51.7 % 08/30/2021 12:02 PM [facility] MCV 93.3 80.7 - 98.3 fL 08/30/2021 12:02 PM [facility] MCH 32.0 26.7 - 34.0 pg 08/30/2021 12:02 PM [facility] MCHC 34.3 30.8 - 35.9 g/dL 08/30/2021 12:02 PM [facility] Platelet Count 274 150 - 400 10? 3 /uL 08/30/2021 12:02 PM [facility] RDW-SD 56.0(H) 36.0 - 50.0 fL 08/30/2021 12:02 PM [facility] RDW-CV 16.3(H) 11.2 - 14.8 % 08/30/2021 12:02 PM [facility] MPV 12.3 9.4 - 12.9 fL 08/30/2021 12:02 PM [facility] nRBC Absolute 0.00 0 10? 3 /uL 08/30/2021 12:02 PM [facility] nRBC Auto 0.0 0 /100 WBC 08/30/2021 12:02 PM [facility] Neutrophils % 58.0 35.0 - 70.0 % 08/30/2021 12:02 PM [facility] Lymphocytes % 31.2 20.0 - 43.0 % 08/30/2021 12:02 PM [facility] Monocytes % 6.1 5.0 - 13.0 % 08/30/2021 12:02 PM [facility] Eosinophils % 3.3 0.0 - 6.0 % 08/30/2021 12:02 PM [facility] Basophil % 1.1 0.0 - 2.0 % 08/30/2021 12:02 PM [facility] Neutrophils Absolute 7.3(H) 1.6 - 7.0 10? 3 /uL 08/30/2021 12:02 PM [facility] Lymphocyte Absolute 3.9 1.1 - 3.9 10? 3 /uL 08/30/2021 12:02 PM [facility] Monocytes Absolute 0.77 0.26 - 1.07 10? 3 /uL 08/30/2021 12:02 PM [facility] Eosinophils Absolute 0.42 0.00 - 0.47 10? 3 /uL 08/30/2021 12:02 PM [facility] Basophils Absolute 0.14(H) 0.00 - 0.08 10? 3 /uL 08/30/2021 12:02 PM [facility] Immature Granulocytes % 0.3 0.0 - 1.0 % 08/30/2021 12:02 PM [facility] Immature Granulocytes Absolute 0.04 08/30/2021 12:02 PM [facility] Blood BLOOD SPECIMEN / Unknown Venipuncture / Unknown 08/30/2021 11:36 AM CARBON FURNACE OPERATOR HELPER 08/30/2021 11:45 AM [facility] Tiffanie Nguyen CRYPTOLOGIST-RECEIVING AND PROCESSING SUPERVISOR LAB - HEMATOLOG Y ORDERABLES Performing Organization Address [facility]/State/[facility] Co de Phone Number [facility] [address] [place] [address], [facility] [phone] * (ABNORMAL) COMPREHENSIVE METABOLIC PANEL (08/30/2021 11:36 AM CARBON FURNACE OPERATOR HELPER) BUN 12 7 - 26 mg/dL 08/30/2021 12:10 PM [facility] Creatinine 1.02 0.71 - 1.16 mg/dL 08/30/2021 12:10 PM [facility] Sodium 140 136 - 145 mmol/L 08/30/2021 12:10 PM [facility] Potassium 4.8(H) 3.5 - 4.5 mmol/L 08/30/2021 12:10 PM [facility] Chloride 107 98 - 107 mmol/L 08/30/2021 12:10 PM [facility] CO2 23 22 - 29 mmol/L 08/30/2021 12:10 PM [facility] Glucose 99 70 - 115 mg/dL 08/30/2021 12:10 PM [facility] Calcium 9.4 8.4 - 10.2 mg/dL 08/30/2021 12:10 PM [facility] Protein Total 6.6 6.0 - 8.3 g/dL 08/30/2021 12:10 PM [facility] Albumin 3.9 3.4 - 5.0 g/dL 08/30/2021 12:10 PM [facility] Bilirubin Total 0.4 0.2 - 1.2 mg/dL 08/30/2021 12:10 PM [facility] Alkaline Phosphatase 113 40 - 150 U/L 08/30/2021 12:10 PM [facility] ALT 38 5 - 55 U/L 08/30/2021 12:10 PM [facility] AST 26 5 - 34 U/L 08/30/2021 12:10 PM [facility] Anion Gap 15 8 - 18 08/30/2021 12:10 PM [facility] BUN/Creatinine Ratio 12 7 - 23 08/30/2021 12:10 PM [facility] Osmolality Calculated 290 270 - 300 mOsm/kg 08/30/2021 12:10 PM [facility] Albumin/Globulin Ratio 1.4 1.1 - 2.3 08/30/2021 12:10 PM [facility] eGFR by CKD-EPI 85(L) >=90 mL/min/1.7 3 m2 08/30/2021 12:10 PM [facility] Blood BLOOD SPECIMEN / Unknown Venipuncture / Unknown 08/30/2021 11:36 AM CARBON FURNACE OPERATOR HELPER 08/30/2021 11:46 AM CARBON FURNACE OPERATOR HELPER Tiffanie Nguyen CRYPTOLOGIST-RECEIVING AND PROCESSING SUPERVISOR LAB - CHEMISTRY ORDERABLES [facility] [address] [place] [address], [facility] [phone] * (ABNORMAL) LIPID PROFILE (08/30/2021 11:36 AM CARBON FURNACE OPERATOR HELPER) Cholesterol Total 207(H) <200 mg/dL 08/30/2021 12:10 PM [facility] HDL 38(L) >40 mg/dL 08/30/2021 12:10 PM [facility] Comment: ATP III Classification of HDL Cholesterol: ? <40 mg/dL: ??Considered a major risk factor. ? >60 mg/dL: ??Considered a negative risk factor. ? LDL Calculated 152(H) <100 mg/dL 08/30/2021 12:10 PM [facility] Comment: ATP III Classification of LDL Cholesterol: ?<100 mg/dL: ??Optimal ? 100 - 129 mg/dL: ??Near Optimal/Above Optimal ? 130 - 159 mg/dL: ??Borderline High ? 160 - 189 mg/dL: ??High ?>190 mg/dL: ??Very High ? Triglycerides 87 <150 mg/dL 08/30/2021 12:10 PM [facility] Comment: ATP III Classification of Triglycerides: ?<150 mg/dL: ??Normal ? 150 - 199 mg/dL: ??Borderline High ? 200 - 400 mg/dL: ??High ?>500 mg/dL: ??Very High Blood BLOOD SPECIMEN / Unknown Venipuncture / Unknown 08/30/2021 11:36 AM CARBON FURNACE OPERATOR HELPER 08/30/2021 11:46 AM CARBON FURNACE OPERATOR HELPER Tiffanie Nguyen CRYPTOLOGIST-RECEIVING AND PROCESSING SUPERVISOR LAB - CHEMISTRY ORDERABLES [address] [address], [facility] [phone] * PSA FREE + TOTAL PANEL (08/30/2021 11:36 AM [facility]) Pathologist [facility] PSA Total 2.3 0.0 - 4.0 ng/mL 08/30/2021 12:32 PM [facility] PSA Free 0.27 0.00 - 0.50 ng/mL 08/30/2021 12:32 PM [facility] PSA % Free 12 See Comment % 08/30/2021 12:32 PM [facility] Comment: ??[facility] uses the Bartholomew Iron Carrier method for Total and Free PSA measurements. [...] Free and/or Total PSA alone. Distribution of HOUSEMAID % Free PSA Values for specimens with HOUSEMAID Total PSA values between 4.0 and 10.0 ng/mL: ?% Free PSA Ranges ? <10.0 ??10.0-15.0 ??15.0-20.0 ?? 20.0-26.0 ?>26.0 ? Number of ? ----- ??--------- ??--------- ?? --------- ?----- ? Subjects Biopsy ? --------- ------ Negative ? 307 ?9.4 ?22.5 ?25.4 ?24.8 ? 17.9 Positive ? 123 ? 27.6 ?30.9 ?17.9 ?15.4 ?8.1 ? PSA % Free 08/30/2021 12:32 PM CARBON FURNACE OPERATOR HELPER [facility] Blood BLOOD SPECIMEN / Unknown Venipuncture / Unknown 08/30/2021 11:36 AM CARBON FURNACE OPERATOR HELPER 08/30/2021 11:46 AM CARBON FURNACE OPERATOR HELPER Tiffanie Nguyen CRYPTOLOGIST-RECEIVING AND PROCESSING SUPERVISOR LAB - CHEMISTRY ORDERABLES Performing Organization Address [facility]/State/[facility] Co de Phone Number [facility] [address] [place], [place] [address], [facility] [phone] * VARICELLA ZOSTER ANTIBODY IGG (08/30/2021 11:36 AM CARBON FURNACE OPERATOR HELPER) Varicella zoster Virus Antibody IgG 345.3 IV 08/31/2021 11:45 PM CARBON FURNACE OPERATOR HELPER [facility] Comment: INTERPRETIVE INFORMATION: VZV Ab, IgG [...] laboratory at the same time. Performed By: [facility] [employer] [address] [place] [address] Car Top Bolter: Clare Linda MD Blood BLOOD SPECIMEN / Unknown Venipuncture / Unknown 08/30/2021 11:36 AM CARBON FURNACE OPERATOR HELPER 08/30/2021 11:44 AM CARBON FURNACE OPERATOR HELPER Tiffanie Nguyen CRYPTOLOGIST-RECEIVING AND PROCESSING SUPERVISOR LAB - CHEMISTRY ORDERABLES Performing Organization Address City/State/[facility] Co de Phone Number [facility] [address] [place] [address] * FLOW CYTOMETRY T-HELPER CELLS (CD4) COUNT (08/30/2021 11:36 AM CARBON FURNACE OPERATOR HELPER) Reason for test Diffuse large B-cell lymphoma, unspecified body region S/P autologous bone marrow transplantation V42.81 08/30/2021 3:30 PM [facility] Client Specimen ID # [id number] 08/30/2021 3:30 PM [facility] Number of Markers 3 08/30/2021 3:30 PM [facility] Flow Cytometry Results Differential Result Comment WBC Count /uL 12,600 % Lymphocytes 28 Lymphocyte Count u/L 3,528 Cell Region A: Lymphocytes Surface Marker Results % Absolute Count (cells/uL) CD3 85 2,999 CD3+CD4+ 10 353 CD3+CD8+ 73 2,575 CD4:CD8 Ratio 0.14 08/30/2021 3:30 PM [facility] Flow Cytometry Interpretation Testing is technical only and does not require an interpretation of results. 08/30/2021 3:30 PM [facility] Reference Range Adult Normal Reference Range Adult (> 18 years) CD3 54-84 % CD4 33-63 % CD8 12-39 % CD19 5-19 % CD56 6-26 % CD4+CD45RA+ 30-50 % CD4+CD45RO+ 17-42 % CD19+CD27+ 7-48 % CD19+CD27+IgD+ 7-29 % CD19+CD27+IgD- 3-23 % CD19+FF94-YjK+ 29-93 % % 08/30/2021 3:30 PM [facility] Disclaimer Test performed at [facility], [address] [place], [place], [address]. This test was developed and its performance [...] be reported by the physician to the [facility] authority. 08/30/2021 3:30 PM [facility] Embedded Images 3:30 PM [facility] Blood BLOOD SPECIMEN / Unknown Venipuncture / Unknown 08/30/2021 11:36 AM CARBON FURNACE OPERATOR HELPER 08/30/2021 11:45 AM CARBON FURNACE OPERATOR HELPER Tiffanie Nguyen CRYPTOLOGIST-RECEIVING AND PROCESSING SUPERVISOR LAB - PATHOLOGY /CYTOLOGY ORDERABLES Performing Organization Address City/State/[facility] Co de Phone Number [facility] [place] [address], [facility] [phone] documented in this encounter Visit Diagnoses Diagnosis Diffuse large B-cell lymphoma, unspecified body region (HCC)- Primary S/P autologous bone marrow transplantation (HCC) Bone marrow replaced by transplant Iron deficiency anemia, unspecified iron deficiency anemia type Vitamin D deficiency Other specified types of non-hodgkin lymphoma, unspecified site (HCC) Calculus of kidney Migraine without status migrainosus, not intractable, unspecified migraine type Personal history of COVID-19 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 documented in this encounter Care Teams Maintenance Man Relationship Specialty Start Date End Date Ran Nuñez MD [address] [place] [address] PCP - General Family Medicine 08/30/21 Hillary Apple MD [facility] [place] [address] Hematology and Oncology 03/17/19 Tony Dumont MD [address] [place] [address] Hematology and Oncology 03/17/19 Maryjo Reinoso, IMAGING SCIENCE PROFESSOR Motion Picture Projectionist 03/17/19 Madyson Clay, PharmD 03/17/19 Dana Lala, CRYPTOLOGIST-MEDICAL POLICY SPECIALIST [facility] 2nd [place] [address] Oncology 03/17/19 Tiffanie Nguyen, CRYPTOLOGIST-RECEIVING AND PROCESSING SUPERVISOR [address] [facility] 2nd [place] [address] Family Medicine 03/17/19 Stephanie Mahoney, RN Registered Nurse 03/17/19 10/29/21 Alycia Galvan, RN 03/17/19 10/29/21 Cesar Tavares MD Referring Physician Medical Oncology 03/23/19 Karie Jones, RN Registered Nurse 06/08/19 10/29/21 Joy Bob 09/22/19 Addison Shea, PharmD Pharmacist 09/22/19 10/29/21 documented as of this encounter
--- OUTSIDE RECORDS SUMMARY | 2024-08-18 00:22 | XMS_ITS | Encounter Summary ---
Author Organization [facility] Address [address] [facility] [place] [address] Care Team Providers Care Script Girl Name Role Phone Hillary Apple MD Unavailable [phone] Bill Ferrera MD Unavailable [phone] Tony Dumont MD Unavailable Maryjo Reinoso VETERINARY NURSE Unavailable Unavailable Madyson Clay PharmD Unavailable Unavaila Dana Galicia POOL TABLE OPERATOR-FLY SETTER Unavailable [phone] Tiffanie Nguyen POOL TABLE OPERATOR-IMPORT COORDINATOR Unavailable [phone] Stephanie Mahoney RN Unavailable Unavailable Alycia Galvan RN Unavailable UnavailCesar Allen MD Unavailable [phone] Karie Jones RN Unavailable Unavailable Joy Bob Unavailable Fanta Addison Weinstein PharmD Unavailable Unavailab Alida Chang POOL TABLE OPERATOR-IMPORT COORDINATOR Primary Care Provider Reason for Referral * Radiology Services (Routine) - Closed Specialty Diagnoses / Procedures Referred By Deng t Referred To Contact CT Scan Diagnoses Diffuse large B-cell lymphoma, unspecified body region (HCC) Status post autologous bone marrow transplant (HCC) Procedures CT CHEST ABDOMEN PELVIS W Hillary Iniguez MD [address] [facility] [place] [address] [facility] [address] [place] [address] Referral ID Status Reason Start Date Expiration Date Visits Re quested Visits Authorized [id number] Closed 05/24/2021 06/21/2021 1 1 Encounter Details Date Type Department Care Team (Late Contact Info) Description 05/14/2021 Orders Only [facility] [address] [place] [address] Karie Jones, ROSEMARY Diffuse large B-cell lymphoma, unspecified body region (HCC) ; Status post autologous bone marrow transplant (HCC) Social History Tobacco Use Types Packs/Day [...] (Late Contact Info) Description 08/26/2024 11:00 AM ROOF PAINTER [facility] [address] [facility], [place] [address] Andrew Francis MD [address] 2L DIV OF PULMONARY/[place] [address] Scheduled Orders Name Type Priority Associated Diagnoses Orde r Schedule CT CHEST ABDOMEN PELVIS W CONT Imaging Routine Diffuse large B-cell lymphoma, unspecified body region (HCC) Status post autologous bone marrow transplant (HCC) 1 Occurrences starting 05/14/2021 until 05/14/2022 documented as of this encounter Visit Diagnoses Diagnosis Diffuse large B-cell lymphoma, unspecified body region (HCC)- Primary Status post autologous bone marrow transplant (HCC) Bone marrow replaced by transplant documented in this encounter Care Teams Script Girl Relationship Specialty Start Date End Date Alida Marshall APRN-IMPORT COORDINATOR [address] DIV OF HEMATOLOGY & [place] [address] PCP - General Family Medicine 12/23/20 08/29/21 Hillary Apple MD [address] [place] [address] Hematology and Oncology 03/17/19 Bill Ferrera MD [address] [place] [address] Hematology and Oncology 03/17/19 08/27/21 Tony Dumont MD [address] [place] [address] Hematology and Oncology 03/17/19 Maryjo Reinoso, VETERINARY NURSE Outdoor Guide 03/17/19 Madyson Clay, PharmD 03/17/19 Dana Lala APRN-FLY SETTER [address] [place] [address] 2nd [place] [address] Oncology 03/17/19 Tiffanie Nguyen APRN-IMPORT COORDINATOR [address] 2nd [place] [address] Family Medicine 03/17/19 Stephanie Mahoney, RN Registered Nurse 03/17/19 10/29/21 Alycia Galvan, RN 03/17/19 10/29/21 Cesar Tavares MD Referring Physician Medical Oncology 03/23/19 Karie Jones, RN Registered Nurse 06/08/19 10/29/21 Joy Bob 09/22/19 Addison Shea, PharmD Pharmacist 09/22/19 10/29/21 documented as of this encounter
--- OUTSIDE RECORDS SUMMARY | 2024-08-18 00:22 | XMS_ITS | Encounter Summary ---
Author Organization [facility] Address [address] [place] [address] Care Team Providers Care Insulation Cupola Charger Name Role Phone Hillary Apple MD Unavailable [phone] Tony Dumont MD Unavailable [phone] Maryjo Reinoso [facility] [place] Unavailable Unavailable Madyson Clay PharmD Unavailable Unavaila Dana Galicia AZURE ARCHITECT-AGRICULTURAL RESEARCH TECHNOLOGIST Unavailable [phone] Tiffanie Nguyen AZURE ARCHITECT-PROJECT DIRECTOR Unavailable [phone] Stephanie Mahoney RN Unavailable Unavailable Alycia Galvan RN Unavailable UnavailCesar Allen MD Unavailable [phone] Karie Jones RN Unavailable Unavailable Joy Bob Unavailable Fanta Addison Weinstein PharmD Unavailable Unavailab Ran Hoang MD Primary Care Provider Encounter Details Date Type Department Care Team (Late st Contact Info) Description 08/30/2021 10:48 AM TECHNOLOGIST INFECTIOUS DISEASE - 08/30/2021 11:59 PM TECHNOLOGIST INFECTIOUS DISEASE Hospital Encounter [facility] [address] [place] [address] Hillary Apple MD [address] DIV OF HEMATOLOGY & [place] [address] Andrew Francis MD [address] DIV OF PULMONARY/[place] [address] Discharge Disposition: Home or Self Care Social [...] COVID-19? No / Unsure 08/30/2021 10:25 AM TECHNOLOGIST INFECTIOUS DISEASE documented as of this encounter Functional Status [...] (OCEAN; BABY AYR) 0.65 % nasal spray Milfay 2 sprays into each nostril every 2 [...] st Contact Info) Description 08/26/2024 11:00 AM TECHNOLOGIST INFECTIOUS DISEASE Office Visit [facility] - Pulmonology [address] [place] [address], [place] [address] Andrew Francis MD [address] [place] [address] 2L DIV OF PULMONARY/[place] [address] documented as of this encounter Visit Diagnoses Not on filedocumented in this encounter Care Teams Insulation Cupola Charger Relationship Specialty Start Date End Date Ran Nuñez MD [address] [place] [address] PCP - General Family Medicine 08/30/21 Hillary Apple MD [facility] [place] [address] Hematology and Oncology 03/17/19 Tnoy Dumont MD [facility] [place] [address] Hematology and Oncology 03/17/19 Maryjo Reinoso, TRANSFER AND PUMPHOUSE OPERATOR Merchandise Planner 03/17/19 Madyson Clay, PharmD 03/17/19 Dana Lala, AZURE ARCHITECT-AGRICULTURAL RESEARCH TECHNOLOGIST [address] [facility] [place] [address] Oncology 03/17/19 Tiffanie Nguyen, JOSE DAVID-PROJECT DIRECTOR [address] [facility] [facility] 2[place] [address] Family Medicine 03/17/19 Stephanie Mahoney, RN Registered Nurse 03/17/19 10/29/21 Alycia Galvan, RN 03/17/19 10/29/21 Cesar Tavares MD Referring Physician Medical Oncology 03/23/19 Karie Jones, ROSEMARY Registered Nurse 06/08/19 10/29/21 Joy Bob 09/22/19 Addison Shea, PharmD Pharmacist 09/22/19 10/29/21 documented as of this encounter
--- OUTSIDE RECORDS SUMMARY | 2024-08-18 00:22 | XMS_ITS | Encounter Summary ---
Author Organization [facility] Address [address] [facility] [place] [address] Care Team Providers Care Family And Consumer Sciences Teacher Name Role Phone Hillary Apple MD Unavailable [phone] Bill Ferrera MD Unavailable [phone] Tony Dumont MD Unavailable [phone] Maryjo Reinoso [facility] Unavailable Unavailable Madyson Clay PharmD Unavailable Unavaila Dana Galicia ABSENCE MANAGEMENT CONSULTANT-ODD JOB LABORER Unavailable [phone] Tiffanie Nguyen APRN-FITNESS AND WELLNESS MANAGER Unavailable [phone] Stephanie Mahoney RN Unavailable Unavailable Alycia Galvan RN Unavailable UnavailCesar Allen MD Unavailable [phone] Karie Jones RN Unavailable Unavailable Joy Bob Unavailable Fanta Addison Weinstein PharmD Unavailable Unavailab Alida Chang ABSENCE MANAGEMENT CONSULTANT-FITNESS AND WELLNESS MANAGER Primary Care Provider Reason for Visit * Reason Comments Refill Request Encounter Details Date Type Department Care Team (Late st Contact Info) Description 05/09/2021 Refill [facility] [address] [place] [address] Tiffanie Nguyen APRN-CNP [address] [place] [id number] Refill Request Social History Tobacco Use Types [...] st Contact Info) Description 08/26/2024 11:00 AM DIRECTOR OF EMAIL MARKETING Office Visit [facility] - Pulmonology [facility] [facility], [place] [address] Andrew Francis MD [address] [facility] 2L DIV OF PULMONARY/[place] [address] documented as of this encounter Visit Diagnoses Diagnosis Status post autologous bone marrow transplant (HCC) Bone marrow replaced by transplant documented in this encounter Care Teams Family And Consumer Sciences Teacher Relationship Specialty Start Date End Date Alida Marshall APRN-FITNESS AND WELLNESS MANAGER [address] [facility] DIV OF HEMATOLOGY & [place] [address] PCP - General Family Medicine 12/23/20 08/29/21 Hillary Apple MD [address] [place] [address] Hematology and Oncology 03/17/19 Bill Ferrera MD [address] [place] [address] Hematology and Oncology 03/17/19 08/27/21 Tony Dumont MD [address] [place] [address] Hematology and Oncology 03/17/19 Maryjo Reinoso, BOOKING POLICE OFFICER Cooling Pan Tender 03/17/19 Madyson Clay, PharmD 03/17/19 Dana Lala, ABSENCE MANAGEMENT CONSULTANT-ODD JOB LABORER [address] [place], [place] [address] [facility] 2nd [place] [address] Oncology 03/17/19 Tiffanie Nguyen, ABSENCE MANAGEMENT CONSULTANT-FITNESS AND WELLNESS MANAGER [address] [place] [address] 2[place] [address] Family Medicine 03/17/19 Stephanie Mahoney, RN Registered Nurse 03/17/19 10/29/21 Alycia Galvan, ROSEMARY 03/17/19 10/29/21 Cesar Tavares MD Referring Physician Medical Oncology 03/23/19 Karie Jones, RN Registered Nurse 06/08/19 10/29/21 Joy Bob 09/22/19 Addison Shea, PharmD Pharmacist 09/22/19 10/29/21 documented as of this encounter
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
--- OUTSIDE RECORDS SUMMARY | 2024-08-18 00:22 | XMS_ITS | Encounter Summary ---
Author Organization [facility] Address [address] [place] [address] Care Team Providers Care Blue Print Control Clerk Name Role Phone Hillary Apple MD Unavailable [phone] Tony Dumont MD Unavailable Maryjo ReinosoW Unavailable Unavailable Madyson Clay PharmD Unavailable Unavaila Dana Galicia ACCOUNT ANALYST-DAIRY ASSOCIATE Unavailable [phone] Tiffanie Nguyen ACCOUNT ANALYST-FIRST AID INSTRUCTOR Unavailable Cesar Tavares MD Unavailable [phone] Joy Bob Unavailable Fanta Ran Augustine MD Primary Care Provider Tony Dumont MD Unavailable [phone] Shalini Segal MD Unavailable Stefanie Burns RN Unavailable UnavailFatemeh Briones RN Unavailable Unavailable Reason for Referral * Procedure (Routine) - Closed Specialty Diagnoses / Procedures Referred By Contjohn t Referred To Contact Pulmonary Disease Diagnoses Pneumonia due to COVID-19 virus Status post autologous bone marrow transplant (HCC) Procedures COMPLETE PFT Hillary Apple MD [address] [facility] OF [facility]EMATOLOGY & [place] [address] [facility] Pul[facility] Cl [address] [place] [address] Referral ID Status Reason Start Date Expiration Date Visits Re quested Visits Authorized [id number] Closed 02/15/2021 02/15/2022 1 1 Reason for Visit * Procedure (Routine) - Closed Specialty Diagnoses / Procedures Referred By Contac t Referred To Contact Pulmonary Disease Diagnoses Pneumonia due to COVID-19 virus Status post autologous bone marrow transplant (HCC) Procedures COMPLETE PFT Hillary Apple MD [address] [facility] OF HEMATOLOGY & [place] [address] [facility] Pulmonary Cl [address] [place] [address] Referral ID Status Reason Start Date Expiration Date Visits Re quested Visits Authorized [id number] Closed 02/15/2021 02/15/2022 1 1 Encounter Details Date Type Department Care Team (Late st Contact Info) Description 11/13/2021 10:55 AM CDT - 11/13/2021 11:59 PM CDT Hospital Encounter [facility] PFT [address] [place] [id number] Hillary Apple MD [address] [place] [address] OF HEMATOLOGY [place] [address] Discharge Disposition: Home or Self Care Social [...] mouth 2 times daily 10.2 g 3 10/24/2021 11/22/2021 diclofenac sodium EC (VOLTAREN) 75 MG tablet [...] (OCEAN; BABY AYR) 0.65 % nasal spray [place] 2 sprays into each nostril every 2 hours as needed for Dry Nose 04/05/2020 12/20/2021 vitamin D3-cholecalciferol (CHOLECALCIFEROL) 25 MCG (1000 UNITS) tablet Take 2 (two) tablets by mouth once daily 180 tablet 3 11/03/2020 06/30/2022 documented as of this encounter Procedure Notes * Christina Forrest MD - 11/13/2021 1:27 PM CDTAssociated Order(s): PFT OXYGEN DESATURATION STUDY Images from the original note were not included. * Christina Forrest MD - 11/13/2021 1:26 PM CDTAssociated Order(s): COMPLETE PFT Images from the original note were not included. documented in this encounter Plan of Treatment Upcoming Encounters Date Type Department Care Team (Late st Contact Info) Description 08/26/2024 11:00 AM PROCESS IMPROVEMENT MANAGER Office Visit [facility] - Pulmonology [address] [place] [address], [place] [address] Andrew Francis MD [address] [place] [address] 2L DIV OF PULMONARY/[place] [address] documented as of this encounter Procedures Procedure Name Priority Date/Time Associated Diagnosis Comments PFT OXYGEN DESATURATION STUDY Routine 11/13/2021 1:27 PM CDT Chronic respiratory failure with hypoxia (HCC) PFT-LAB Routine 11/13/2021 1:26 PM CDT Pneumonia due to COVID-19 virus Status post autologous bone marrow transplant (HCC) documented in this encounter Results * PFT OXYGEN DESATURATION STUDY (11/13/2021 1:27 PM CDT) Impressions Apolinar Ramos MD - 11/13/2021 1:27 PM CDT [facility] DEPARTMENT OF PULMONARY, CRITICAL CARE, AND SLEEP MEDICINE OXYGEN TITRATION STUDY Marcello Mansfield Mindy 11/18/2021 INTERPRETATION The test was performed on [...] Ramos MD - 11/13/2021 1:26 PM CDT [facility] DEPARTMENT OF PULMONARY, CRITICAL CARE, AND [...] Pulmonary, Critical Care, & Sleep Medicine [facility] I have personally reviewed the pulmonary function test data and made adjustment to the interpretation where necessary. Apolinar Ramos MD 11/21/2021 Narrative Apolinar Ramos MD - 11/13/2021 1:26 PM CDT Christina Forrest MD ? 11/18/2021 ??4:49 PM Hillary Apple MD RESPIRATORY THERAPY ORDERABLES documented in this encounter Visit Diagnoses Diagnosis Pneumonia due to COVID-19 virus Status post autologous bone marrow transplant (HCC) Bone marrow replaced by transplant Chronic respiratory failure with hypoxia (HCC) Chronic respiratory failure documented in this encounter Care Teams Blue Print Control Clerk Relationship Specialty Start Date End Date Ran Nuñez MD [address] [place] [address] PCP - General Family Medicine 08/30/21 Hillary Apple MD [address] [facility] [place] [address] Hematology and Oncology 03/17/19 Tony Dumont MD [address] [place] [address] Hematology and Oncology 03/17/19 Maryoj Reinoso, EARLY LEARNING TEACHER Powder Loader 03/17/19 Madyson Clay, PharmD 03/17/19 Dana Lala, ACCOUNT ANALYST-DAIRY ASSOCIATE [address] 2nd [place] [address] Oncology 03/17/19 Tiffanie Nguyen, ACCOUNT ANALYST-FIRST AID INSTRUCTOR [address] 2nd [place] [address] Family Medicine 03/17/19 Cesar Tavares MD [address] [facility] [address] 2nd [place] [address] Referring Physician Medical Oncology 03/23/19 Joy Bob 09/22/19 Tony Dumont MD [address] [place] [address] Hematology and Oncology 10/30/21 Shalini Segal MD [address] [facility] [place] [address] Admissions Dean/Oncologist Hematology and Oncology 10/30/21 Stefanie Burns, RN Registered Nurse 10/30/21 Fatemeh Bolaños, RN Registered Nurse 10/30/21 documented as of this encounter
--- OUTSIDE RECORDS SUMMARY | 2024-08-18 00:22 | XMS_ITS | Encounter Summary ---
Author Organization [facility] Address [address] [place] [address] Care Team Providers Care Corporate Trainer Name Role Phone Hillary Apple MD Unavailable [phone] Bill Ferrera MD Unavailable [phone] Tony Dumont MD Unavailable [phone] Maryjo Reinoso [facility] Unavailable Unavailable Madyson Clay PharmD Unavailable Unavaila Dana Galicia WEIGHT TRAINING INSTRUCTOR-CORE DRILLER HELPER Unavailable [phone] Tiffanie Nguyen WEIGHT TRAINING INSTRUCTOR-CROSSWORD PUZZLE MAKER Unavailable [phone] Stephanie Mahoney RN Unavailable Unavailable Alycia Galvan RN Unavailable UnavailCesar Allen MD Unavailable [phone] Karie Jones RN Unavailable Unavailable Joy Bob Unavailable Fanta Addison Weinstein PharmD Unavailable Unavailab Alida Chang WEIGHT TRAINING INSTRUCTOR-CROSSWORD PUZZLE MAKER Primary Care Provider Reason for Referral * Radiology Services (Routine) - Closed Specialty Diagnoses / Procedures Referred By Deng t Referred To Contact CT Scan Diagnoses Diffuse large B-cell lymphoma, unspecified body region (HCC) Procedures CT CHEST ABDOMEN PELVIS WO Hillary Iniguez MD [address] [facility] OF HEMATOLOGY & [place] [address] [facility] [address] [place] [address] Referral ID Status Reason Start Date Expiration Date Visits Re quested Visits Authorized [id number] Closed 08/16/2021 02/12/2022 1 1 ORMANCE IMPROVEMENT MANAGER Encounter Details Date Type Department Care Team ([facility] Contact Info) Description 07/30/2021 Orders Only [facility] BMT CLINIC [address] [place] [address] Karie Jones, ROSEMARY Diffuse large B-cell lymphoma, unspecified body region (HCC) Social History Tobacco Use Types Packs/Day [...] (Late Contact Info) Description 08/26/2024 11:00 AM PERFORMANCE IMPROVEMENT MANAGER Office Visit [facility] - Pulmonology [address] [place] [address], [place] [address] Andrew Francis MD [address] [place] [address] 2L DIV OF PULMONARY/[place] [address] documented as of this encounter Results * CT CHEST ABDOMEN PELVIS WO CONT (08/30/2021 10:33 AM PERFORMANCE IMPROVEMENT MANAGER) Anatomical Region Laterality Modality Chest, Abdomen, Pelvis Computed Tomography 08/30/2021 10:4 9 AM PERFORMANCE IMPROVEMENT MANAGER Impressions 08/30/2021 2:51 PM PERFORMANCE IMPROVEMENT MANAGER Impression: 1.Interval improvement in persistent reticulation, cystic [...] 2:51 PM . Narrative 08/30/2021 2:51 PM PERFORMANCE IMPROVEMENT MANAGER Procedure Information DATE: 08/30/2021 10:33 AM EXAMINATION: [...] B-cell lymphoma, unspecified body region (HCC)- Primary Diffuse large B-cell lymphoma, unspecified body region (HCC) documented in this encounter Care Teams Corporate Trainer Relationship Specialty Start Date End Date Alida Marshall APRN-CROSSWORD PUZZLE MAKER [address] [facility] OF HEMATOLOGY & [place] [address] PCP - General Family Medicine 12/23/20 08/29/21 Hillary Apple MD [address] [place] [address] Hematology and Oncology 03/17/19 Bill Ferrera MD [address] [place] [address] Hematology and Oncology 03/17/19 08/27/21 Tony Dumont MD [address] [place] [address] Hematology and Oncology 03/17/19 Maryjo Reinoso, ELECTRICAL TEST TECHNICIAN Diamond Sorter 03/17/19 Madyson Clay, PharmD 03/17/19 Dana Lala, WEIGHT TRAINING INSTRUCTOR-CORE DRILLER HELPER [address] [place] [address] [address]nd [place] [address] Oncology 03/17/19 Tiffanie Nguyen WEIGHT TRAINING INSTRUCTOR-CROSSWORD PUZZLE MAKER [address] [place] [address] [address]nd [place] [address] Family Medicine 03/17/19 Stephanie Mahoney, RN Registered Nurse 03/17/19 10/29/21 Alycia Galvan, ROSEMARY 03/17/19 10/29/21 Cesar Tavares MD Referring Physician Medical Oncology 03/23/19 Karie Jones, RN Registered Nurse 06/08/19 10/29/21 Joy Bob 09/22/19 Addison Shea, PharmD Pharmacist 09/22/19 10/29/21 documented as of this encounter
--- OUTSIDE RECORDS SUMMARY | 2024-08-18 00:22 | XMS_ITS | Encounter Summary ---
Author Organization [facility] Address [address] [facility] [place] [address] Care Team Providers Care Bistro Server Name Role Phone Hillary Apple MD Unavailable [phone] Bill Ferrera MD Unavailable [phone] Tony Dumont MD Unavailable [phone] Maryjo Reinoso [facility] Unavailable Unavailable Madyson Clay PharmD Unavailable Unavaila Dana Galicia MEDICAL DEVICE SALES CONSULTANT-WRAPPER OPERATOR Unavailable [phone] Tiffanie Nguyen APRN-HEAD WAITER/WAITRESS BANQUET Unavailable [phone] Stephanie Mahoney RN Unavailable Unavailable Alycia Galvan RN Unavailable UnavailCesar Allen MD Unavailable [phone] Karie Jones RN Unavailable Unavailable Joy Bob Unavailable Fanta Addison Weinstein PharmD Unavailable Unavailab Alida Chang MEDICAL DEVICE SALES CONSULTANT-HEAD WAITER/WAITRESS BANQUET Primary Care Provider Reason for Visit * Reason Comments Refill Request Encounter Details Date Type Department Care Team (Late st Contact Info) Description 08/10/2021 Refill [facility] BMT CLINIC [address] [place] [address] Tiffanie Nguyen APRN-CNP [address] [place] [id number] Refill Request Social History Tobacco Use Types [...] st Contact Info) Description 08/26/2024 11:00 AM FUNNEL SETTER Office Visit [facility] - Pulmonology [address] [facility], [place] [phone] Andrew Francis MD [address] [facility] [place] 2L DIV OF PULMONARY/[place] [address] documented as of this encounter Visit Diagnoses Not on filedocumented in this encounter Care Teams Bistro Server Relationship Specialty Start Date End Date Alida Marshall, JOSE DAVID-HEAD WAITER/WAITRESS BANQUET [address] [facility] DIV OF HEMATOLOGY & [place] [address] PCP - General Family Medicine 12/23/20 08/29/21 Hillary Apple MD [address] [place] [address] Hematology and Oncology 03/17/19 Bill Ferrera MD [address] [place] [address] Hematology and Oncology 03/17/19 08/27/21 Tony Dumont MD [address] [place] [address] Hematology and Oncology 03/17/19 Maryjo Reinoso, PHYSICS TEACHER Tank Furnace Operator 03/17/19 Madyson Clay, PharmD 03/17/19 Dana Lala, MEDICAL DEVICE SALES CONSULTANT-WRAPPER OPERATOR [address] [facility] 2[place] [address] Oncology 03/17/19 Tiffanie Nguyen, MEDICAL DEVICE SALES CONSULTANT-HEAD WAITER/WAITRESS BANQUET [facility] [address] [address] Family Medicine 03/17/19 Stephanie Mahoney, RN Registered Nurse 03/17/19 10/29/21 Alycia Galvan, RN 03/17/19 10/29/21 Cesar Tavares MD Referring Physician Medical Oncology 03/23/19 Karie Jones, RN Registered Nurse 06/08/19 10/29/21 Joy Bob 09/22/19 Addison Shea, PharmD Pharmacist 09/22/19 10/29/21 documented as of this encounter
--- OUTSIDE RECORDS SUMMARY | 2024-08-18 00:22 | XMS_ITS | Encounter Summary ---
Author Organization [facility] Address [address] [facility] [place] [address] Care Team Providers Care Mine Technician Name Role Phone Hillary Apple MD Unavailable [phone] Tony Dumont MD Unavailable [phone] Maryjo ReinosoW Unavailable Unavailable Madyson Clay PharmD Unavailable Unavaila Dana Galicia INFORMATICS ANALYST-GUEST RELATIONS OFFICER Unavailable [phone] Tiffanie Nguyen INFORMATICS ANALYST-ASSOCIATE PARTNER Unavailable [phone] Cesar Tavares MD Unavailable [phone] Joy Bob Unavailable Fanta Ran Augustine MD Primary Care Provider Tony Dumont MD Unavailable [phone] Shalini Segal MD Unavailable Stefanie Burns RN Unavailable UnavailFatemeh Briones RN Unavailable Unavailable Reason for Visit * Reason Comments Establish Care Incisional hernia Encounter Details Date Type Department Care Team (Late st Contact Info) Description 11/28/2021 9:00 AM CDT Office Visit [facility] General Surgery [address] [place] [address] Chloe Kent MD [address] DIV OF [facility] [place] [address] Incisional hernia with gangrene (Primary Dx) Social History Tobacco Use Types [...] Sign Reading Time Taken Comments Blood Pressure 119/72 11/28/2021 8:55 AM CDT Pulse 88 11/28/2021 8:55 AM CDT Temperature 36.9 ??C (98.4 ??F) 11/28/2021 8:55 AM CD T Respiratory Rate - - Oxygen Saturation 91% 11/28/2021 8:55 AM CDT Inhaled Oxygen Concentration - - Weight 138.3 kg (305 lb) 11/28/2021 8:55 AM CDT Height 172.7 cm (5' 8 ) 11/28/2021 8:55 AM CDT Body Mass Index 46.38 11/28/2021 8:55 AM CDT documented in this [...] this encounter Patient Instructions * Patient Instructions* Rosita Demarco - 11/28/2021 9:48 AM CDT Left abdominal hernia, reducible - Recommended to lose weight of 50 lbs before surgery - Continue to recover from COVID before surgery - Return to clinic for follow up with Dr. Kent in 1 year documented in this encounter H&P Notes * Rosita Demarco - 11/28/2021 9:42 AM CDT Images from the original note were not included. 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 He had prolonged hospital course for COVID pneumonia from January through Apr 2020. Since then, he continues to cough intermittently throughout the day, on home oxygen (currently on 4L O2). Around 4 monthsago, patient reported pain in his left upper abdomen and felt a bulge that increases with cough, which has been progressively enlarging. CT A/P on 08/30/21 showed a left anterior abdominal wall widemouth hernia present with bowel protruding through defect. He has not had any bloating or any other abdominal pain. He maintains regular bowel movements without bleeding. He denies any fevers, chills, nausea, vomiting, diarrhea, or constipation. He has been gradually recovering from COVID, still requiring Albuterol rescue inhaler 3x/day and Symbicort every morning and night. He followed up with his recording clerk on 11/22/21 and was referred here for evaluation. PMH: childhood asthma, non hodgkin lymphoma, LISSA, obesity, COVID pneumonia PSH: splenectomy, ACL reconstruction, knee arthroscopy, tonsillectomy Medications: Albuterol, Symbicort, [place] (for migraines), acyclovir, penicillin, see below for complete list. Allergies: Adhesives SocHx: former smoker for 15 years, previously smoking 1 pack/day, uses marijuana, denies alcohol orother illicit drug use FMH: No fhx of any cancers Past Medical History: Diagnosis Date ??? Acute [...] DEVICE (PORT OR CATHETER) Right 2019 subclavian Allergies Allergen Reactions ??? Adhesive Sensitivity Urticaria and Other Electrodes -- welps where stickers are Also, use paper tape ??? acetaminophen (TYLENOL) 325 MG tablet ??? acyclovir (ZOVIRAX) 400 MG tablet ??? albuterol HFA (PROVENTIL;VENTOLIN;PROAIR) 108 (90 Base) MCG/ACT inhaler ??? albuterol HFA (PROVENTIL; VENTOLIN; PROAIR) 108 (90 Base) MCG/ACT inhaler ??? budesonide-formoterol (SYMBICORT) 160-4.5 MCG/ACT inhaler ??? clonazePAM (KLONOPIN) 1 MG tablet ??? diclofenac sodium EC (VOLTAREN) 75 MG tablet ??? escitalopram (LEXAPRO) 20 MG tablet ??? fluticasone propionate (FLONASE) 50 MCG/ACT nasal spray ??? HYDROcodone-acetaminophen (NORCO) 5-325 MG tablet ??? multivitamin daily tablet ??? ondansetron, disintegrating, (ZOFRAN ODT) 8 MG tablet ??? oxyCODONE, immediate release, (ROXICODONE) 5 MG tablet ??? penicillin V potassium (VEETIDS) 250 MG tablet ??? prochlorperazine (COMPAZINE) 10 MG tablet ??? rOPINIRole (REQUIP) 0.25 MG tablet ??? saline nasal spray (OCEAN; BABY AYR) 0.65 % nasal spray ??? vitamin D3-cholecalciferol (CHOLECALCIFEROL) 25 MCG (1000 UNITS) tablet Social History Tobacco Use ??? Smoking status: Former Smoker Packs/day: 0.50 Types: Cigarettes Start date: 1983 Quit date: 2001 Years since quittin.3 ??? Smokeless tobacco: Former User Types: Chew Quit date: 2016 Vaping Use ??? Vaping Use: Some days ??? Start date: 08/04/2018 ??? Last attempt to quit: 10/12/2018 Substance Use Topics ??? Alcohol use: Not Currently ??? Drug use: Not Currently Frequency: 21.0 times per week Types: Marijuana Comment: none in past month Family History Family history unknown: Yes REVIEW OF SYSTEMS Constitutional: no fevers, chills, sweats, fatigue, weight loss/gain, chronic pain HEENT: no head trauma, vision/hearing/voice changes, eye/ear/throat pain, nasal discharge, dysphagia, sores, ulcers, sinus pain Respiratory: no hemoptysis, sputum, BARNES, dyspnea at rest, PND, wheezing, pos for cough, sob with exertion Cardiovascular: no chest pain/discomfort, palpitations, lower extremity edema, calf/leg pain Gastrointestinal: no nausea/vomiting, constipation, melena, pos for left upper abdominal pain, bulging with cough, see HPI Genitourinary: no dysuria, urgency, frequency, incontinence, hematuria Integument: no rash, ulcers, itching Hematologic/lymphatic: no easy bruising, bleeding, petechiae Musculoskeletal: no myalgias, arthralgias Neurological: no headaches, dizziness, numbness, tingling, seizures Behavioral/Psych: no anxiety, depression, memory problems Endocrine: no polyuria, polydipsia, polyphagia, heat/cold intolerance Vitals: 11/28/21 0855 BP: 119/72 Pulse: 88 Temp: 98.4 ??F (36.9 ??C) SpO2: 91% Weight: (!) 305 lb (138.3 kg) Height: 5' 8 (1.727 m) Estimated body mass index is 46.38 kg/m?? as calculated from the following: Height as of this encounter: 5' 8 (1.727 m). Weight as of this encounter: 305 lb (138.3 kg). Physical Exam: Gen: awake, alert, no acute distress HEENT: NCAT, EOMI, anicteric sclerae CV: RRR, normotensive Resp: nonlabored on RA, Abd: soft, nondistended. Moderately TTP in LUQ over moderately-sized incisional hernia, soft and reducible, bowel protrusion with cough. No overlying skin changes. MSK: moves all four, no c/c/e Neuro: no focal deficits, cranial nerves grossly intact Psy: appropriate, cooperative Recent Labs Component Name 08/30/21 1136 WBC 12.6* HGB 13.4 HCT 39.1 Recent Labs Component Name 08/30/21 1136 NA 140 CL 107 CO2 23 BUN 12 CREATININE 1.02 Recent Labs Component Name 03/06/20 1816 PT 14.7 PTT 26.0 INR 1.2 Imaging: CT C/A/P without contrast 08/30/21: GI Findings: Gastrointestinal: A small hiatal hernia is present. The stomach and visualized loops of bowel are unremarkable. Sigmoid colonic diverticulosis is present without evidence of diverticulitis. Appendix is normal. Left anterior abdominal wall widemouth hernia is present with bowel protruding through defect (image 133, series 3). ?? Impression: 1.Interval improvement in persistent reticulation, cystic changes and bronchiectasis with mild volume loss bilaterally, representing sequela of Covid pneumonia. 2.Left-sided nonobstructing nephrolithiasis with no evidence of hydronephrosis. 3.Sigmoid colonic diverticulosis without evidence of diverticulitis. Assessment and Plan: Marcello Guillen is a 51 year old male with hx of obesity and non hodgkin lymphoma s/p R-CHOP in 2018, with recurrence in 2019 s/p splenectomy 08/2019 due to risk of splenic rupture, and autologous SCT (10/2019), who now presents with left abdominal incisional hernia, first noted 4 months ago. Upon evaluation today, his hernia is easily reducible and causing no obstructive symptoms, unconcerning for incarcerated or strangulated bowel. He does not require emergent surgery at this time. He currently has BMI of 46 and continues to have cough and dyspnea with activity, requiring home oxygen. We explained to patient that these are both risk factors for abdominal hernia due to increased intraabdominal pressure. We recommend him to lose weight and recover from his pulmonary sx for optimal surgicaloutcomes, before abdominal hernia repair. - Recommended to lose weight with goal of 50 lbs - Recover from cough and wean oxygen as tolerated, per Pulm - Return to clinic for follow up in 1 year I have assessed and discussed this patient with my attending, Dr. Kent. Rosita Demarco, MS4 Patient was seen and examined with resident. I concur with findings, assessment, and plan. The notehas been edited to reflect my findings. In summary, 51 yo M with h/o hodgkin lymphoma s/p R-CHOP [id number]. Patient underwent prophylactic splenectomy due to increased risk of splenic rupture due to meds required for bone marrow transplant on 08/2019 followed by bone marrow transplant. He has a history of asthma but has worsening symptoms and developed pulmonary insufficiency after covid in 2019. Here to discuss elective hernia repair. Patient has reducible incisional hernia (at extraction site, ~4-5cm defect). No obstructive symptoms. Encourage weight loss and continued pulmonology visits. Patient's oxygen requirement improving. Counseled on signs/symptoms of hernia incarceration and strangulation and need to go to ED if it occurs. RTC in one year to re-assess candidacy for elective hernia repair. Chloe Kent MD 11/29/2021 10:34 AM documented in this encounter Plan of Treatment Upcoming Encounters Date Type Department Care Team (Late st Contact Info) Description 08/26/2024 11:00 AM DOWN FILLER Office Visit [facility] - Pulmonology [address] [place] [address], [place] [address] Andrew Francis MD [address] [place] [address] DIV OF PULMONARY/[place] [address] documented as of this encounter Visit Diagnoses Diagnosis Incisional hernia with gangrene- Primary Incisional ventral hernia, with gangrene documented in this encounter Care Teams Mine Technician Relationship Specialty Start Date End Date Ran Nuñez MD [address] [place] [address] PCP - General Family Medicine 08/30/21 Hillary Apple MD [address] [place] [address] Hematology and Oncology 03/17/19 Tony Dumont MD [facility] [place] [address] Hematology and Oncology 03/17/19 Maryjo Reinoso, FERMENTATION MANAGER Plant Controls Specialist 03/17/19 Madyson Clay, PharmD 03/17/19 Dana Lala, INFORMATICS ANALYST-GUEST RELATIONS OFFICER [address] [place] [address] Oncology 03/17/19 Tiffanie Nguyen, INFORMATICS ANALYST-ASSOCIATE PARTNER [address] [place] [address] Family Medicine 03/17/19 Cesar Tavares MD [address] [place] [address] Referring Physician Medical Oncology 03/23/19 Joy Bob 09/22/19 Tony Dumont MD [address] [place] [address] Hematology and Oncology 10/30/21 Shalini Segal MD [address] [facility] [place] [address] Pole Framer Machine/Oncologist Hematology and Oncology 10/30/21 Stefanie Burns, RN Registered Nurse 10/30/21 Fatemeh Bolaños, RN Registered Nurse 10/30/21 documented as of this encounter
--- OUTSIDE RECORDS SUMMARY | 2024-08-18 00:22 | XMS_ITS | Encounter Summary ---
Author Organization [facility] Address [address] [place] [address] Care Team Providers Care Microarray Specialist Name Role Phone Hillary Apple MD Unavailable [phone] Tony Dumont MD Unavailable [phone] Maryjo ReinosoW Unavailable Unavailable Madyson Clay PharmD Unavailable Unavaila Dana Galicia RUNNING SPECIALIST-HEARING EXAMINER Unavailable [phone] Tiffanie Nguyen RUNNING SPECIALIST-TURF SALES PERSON Unavailable Cesar Tavares MD Unavailable [phone] Joy Bob Unavailable Fanta Ran Augustine MD Primary Care Provider Tony Dumont MD Unavailable Shalini Segal MD Unavailable [phone] Stefanie Burns RN Unavailable UnavailFatemeh Briones RN Unavailable Unavailable Encounter Details Date Type Department Care Team (Late st Contact Info) Description 11/13/2021 10:55 AM CDT - 11/13/2021 11:59 PM CDT Hospital Encounter [facility] [address] [place] [id number] Hillary Apple MD [address] [facility] OF [facility] & MEDICAL ONCOLOGY [place], [place] [id number] Discharge Disposition: Home or Self Care Social [...] (OCEAN; BABY AYR) 0.65 % nasal spray [place] 2 sprays into each nostril every 2 hours as needed for Dry Nose 04/05/2020 12/20/2021 vitamin D3-cholecalciferol (CHOLECALCIFEROL) 25 MCG (1000 UNITS) tablet Take 2 (two) tablets by mouth once daily 180 tablet 3 11/03/2020 06/30/2022 documented as of this encounter Plan of Treatment Upcoming Encounters Date Type Department Care Team (Late st Contact Info) Description 08/26/2024 11:00 AM PHYSICAL EDUCATION PROFESSOR Office Visit [facility] - Pulmonology [facility], [place] [address] Andrew Francis MD [address] DIV OF PULMONARY/[place] [address] documented as of this encounter Visit Diagnoses Not on filedocumented in this encounter Care Teams Microarray Specialist Relationship Specialty Start Date End Date Ran Nuñez MD [address] [place] [address] PCP - General Family Medicine 08/30/21 Hillary Apple MD [facility] [place] [address] Hematology and Oncology 03/17/19 Tony Dumont MD [facility] [place] [address] Hematology and Oncology 03/17/19 Maryjo Reinoso, E COMMERCE SPECIALIST Power System Dispatcher 03/17/19 Madyson Clay, PharmD 03/17/19 Dana Lala APRN-HEARING EXAMINER [facility] [place] [address] Oncology 03/17/19 Tiffanie Nguyen APRN-TURF SALES PERSON [facility] [place] [address] Family Medicine 03/17/19 Cesar Tavares MD [address] [place] [address] Referring Physician Medical Oncology 03/23/19 Joy Bob 09/22/19 Tony Dumont MD [address] [place] [address] Hematology and Oncology 10/30/21 Shalini Segal MD [address] [place] [address] OF HEMATOLOGY [place] [address] Hearing Impaired Itinerant Teacher/Oncologist Hematology and Oncology 10/30/21 Stefanie Burns, RN Registered Nurse 10/30/21 Fatemeh Bolaños, RN Registered Nurse 10/30/21 documented as of this encounter
--- OUTSIDE RECORDS SUMMARY | 2024-08-18 00:22 | XMS_ITS | Encounter Summary ---
Author Organization [facility] Address [address] [facility] [place] [address] Care Team Providers Care Chief Internal Auditor Name Role Phone Hillary Apple MD Unavailable [phone] Bill Ferrera MD Unavailable [phone] Tony Dumont MD Unavailable [phone] Maryjo Reinoso [facility] Unavailable Unavailable Madyson Clay PharmD Unavailable Unavaila Dana Galicia CAGE SUPERVISOR-STRAIGHTEDGE WORKER Unavailable [phone] Tiffanie Nguyen CAGE SUPERVISOR-PAINTER AND GRADER CORK Unavailable [phone] Stephanie Mahoney RN Unavailable Unavailable Alycia Galvan RN Unavailable UnavailCesar Allen MD Unavailable [phone] Karie Jones RN Unavailable Unavailable Joy Bob Unavailable Fanta Addison Weinstein PharmD Unavailable Unavailab Alida Chang CAGE SUPERVISOR-PAINTER AND GRADER CORK Primary Care Provider Reason for Visit * Reason Onset Date Comments MEDICATION REFILL 07/13/2021 Encounter Details Date Type Department Care Team (Late st Contact Info) Description 07/13/2021 [facility] [address] [place] [address] Hillary Apple MD [address] [facility] OF HEMATOLOGY & [place] [address] MEDICATION REFILL Social History Tobacco [...] st Contact Info) Description 08/26/2024 11:00 AM HUMAN RESOURCES EXECUTIVE ASSISTANT Office Visit [facility] - Pulmonology [address] [facility], [place] [address] Andrew Francis MD [address] [facility] 2L DIV OF PULMONARY/[place] [address] documented as of this encounter Visit Diagnoses Not on filedocumented in this encounter Care Teams Chief Internal Auditor Relationship Specialty Start Date End Date Alida Marshall, CAGE SUPERVISOR-PAINTER AND GRADER CORK [address] [facility] DIV OF HEMATOLOGY & [place] [address] PCP - General Family Medicine 12/23/20 08/29/21 Hillary Apple MD [facility] [place] [address] Hematology and Oncology 03/17/19 Bill Ferrera MD [address] [place] [address] Hematology and Oncology 03/17/19 08/27/21 Tony Dumont MD [address] [place] [address] Hematology and Oncology 03/17/19 Maryjo Reinoso, CERTIFIED FINANCIAL PLANNER Insurance Coder 03/17/19 Madyson Clay, PharmD 03/17/19 Dana Lala, CAGE SUPERVISOR-STRAIGHTEDGE WORKER [address] [facility] 2nd [place] [address] Oncology 03/17/19 Tiffanie Nguyen, CAGE SUPERVISOR-PAINTER AND GRADER CORK [facility] [facility] 2nd [place] [address] Family Medicine 03/17/19 Stephanie Mahoney, RN Registered Nurse 03/17/19 10/29/21 Alycia Galvan, ROSEMARY 03/17/19 10/29/21 Cesar Tavares MD Referring Physician Medical Oncology 03/23/19 Karie Jones, RN Registered Nurse 06/08/19 10/29/21 Joy Bob 09/22/19 Addison Shea, PharmD Pharmacist 09/22/19 10/29/21 documented as of this encounter
--- OUTSIDE RECORDS SUMMARY | 2024-08-18 00:22 | XMS_ITS | Encounter Summary ---
Author Organization [facility] Address [address] [facility] [place] [address] Care Team Providers Care Furniture Mover Name Role Phone Hillary Apple MD Unavailable Tony Dumont MD Unavailable [phone] Maryjo ReinosoW Unavailable Unavailable Madyson Clya PharmD Unavailable Unavaila Dana Galicia STATION CLEANING PORTER-STUDENT FINANCIAL SERVICES COUNSELOR Unavailable [phone] Patrick Lara STATION CLEANING PORTER-SCAGLIOLA MECHANIC Unavailable Stephanie Mahoney RN Unavailable Unavailable Alycia Galvan RN Unavailable UnavailCesar Allen MD Unavailable [phone] Karie Jones RN Unavailable Unavailable Joy Bob Unavailable Fanta Addison Weinstein PharmD Unavailable Unavailab Ran Hoang MD Primary Care Provider Encounter Details Date Type Department Care Team (Latest Contact Info) Description 08/30/2021 Travel Social History Tobacco Use Types Packs/Day [...] COVID-19? No / Unsure 08/30/2021 10:25 AM TEXTILE ARTIST documented as of this encounter Functional Status [...] st Contact Info) Description 08/26/2024 11:00 AM TEXTILE ARTIST Office Visit [facility] - Pulmonology [address] [place] [address], [place] [address] Andrew Francis MD [address] [place] [address] 2L DIV OF PULMONARY/[place] [address] documented as of this encounter Visit Diagnoses Not on filedocumented in this encounter Care Teams Furniture Mover Relationship Specialty Start Date End Date Ran Nuñez MD [address] [place] [address] PCP - General Family Medicine 08/30/21 Hillary Apple MD [address] [place] [address] Hematology and Oncology 03/17/19 Tony Dumont MD [address] [place] [address] Hematology and Oncology 03/17/19 Maryjo Reinoso LCSW Metal Checker 03/17/19 Madyson Clay, PharmD 03/17/19 Dana Lala, STATION CLEANING PORTER-STUDENT FINANCIAL SERVICES COUNSELOR [address] [place] [address] Oncology 03/17/19 iTffanie Nguyen, STATION CLEANING PORTER-SCAGLIOLA MECHANIC [address] [address] Family Medicine 03/17/19 Stephanie Mahoney, RN Registered Nurse 03/17/19 10/29/21 Alycia Galvan, ROSEMARY 03/17/19 10/29/21 Cesar Tavares MD Referring Physician Medical Oncology 03/23/19 Karie Jones, RN Registered Nurse 06/08/19 10/29/21 Joy Bob 09/22/19 Addison Shea, PharmD Pharmacist 09/22/19 10/29/21 documented as of this encounter
--- OUTSIDE RECORDS SUMMARY | 2024-08-18 00:22 | XMS_ITS | Encounter Summary ---
Author Organization [facility] Address [address] [facility] [place] [address] Care Team Providers Care Roll Forming Machine Operator Name Role Phone Hillary Apple MD Unavailable [phone] Tony Dumont MD Unavailable [phone] Maryjo Reinoso LCSW Unavailable Unavailable Madyson Clay PharmD Unavailable Unavaila Dana Galicia HEAD TURNING MACHINE OPERATOR-MANAGER UNIX Unavailable [phone] Tiffanie Nguyen HEAD TURNING MACHINE OPERATOR-CUSTOMER SUPPLY CHAIN ANALYST Unavailable [phone] Cesar Tavares MD Unavailable [phone] Joy Bob Unavailable Fanta Ran Augustine MD Primary Care Provider Tony Dumont MD Unavailable [phone] Shalini Segal MD Unavailable [phone] Stefanie Burns RN Unavailable UnavailFatemeh Briones RN Unavailable Unavailable Encounter Details Date Type Department Care Team (Latest Contact Info) Description 11/13/2021 Travel Social History Tobacco Use Types Packs/Day [...] st Contact Info) Description 08/26/2024 11:00 AM OPERATIONS VICE PRESIDENT Office Visit [facility] - Pulmonology [address] [place] [address], [place] [address] Andrew Francis MD [address] [place] [address] DIV OF PULMONARY/[place] [address] documented as of this encounter Visit Diagnoses Not on filedocumented in this encounter Care Teams Roll Forming Machine Operator Relationship Specialty Start Date End Date Ran Nuñez MD [address] [place] [address] PCP - General Family Medicine 08/30/21 Hillary Apple MD [address] [place] [address] Hematology and Oncology 03/17/19 Tony Dumont MD [address] [place] [address] Hematology and Oncology 03/17/19 Maryjo Reinoso, REYNA Equipment Validation Engineer 03/17/19 Madyson Clay, PharmD 03/17/19 Dana Lala, HEAD TURNING MACHINE OPERATOR-MANAGER UNIX [address] [facility] 2nd [place] [address] Oncology 03/17/19 Tiffanie Nguyen, HEAD TURNING MACHINE OPERATOR-CUSTOMER SUPPLY CHAIN ANALYST [address] [facility] 2nd [place] [address] Family Medicine 03/17/19 Cesar Tavares MD [address] [place] [address] Referring Physician Medical Oncology 03/23/19 Joy Bob 09/22/19 Tony Dumont MD [address] [place] [phone] Hematology and Oncology 10/30/21 Shalini Segal MD [facility] S [facility] OF HEMATOLOGY & [place] [address] Dish Stacker/Oncologist Hematology and Oncology 10/30/21 Stefanie Burns, RN Registered Nurse 10/30/21 Fatemeh Bolaños RN Registered Nurse 10/30/21 documented as of this encounter
--- OUTSIDE RECORDS SUMMARY | 2024-08-18 00:22 | XMS_ITS | Encounter Summary ---
Author Organization [facility] Address [address] [facility] [place] [address] Care Team Providers Care Solvent Recoverer Name Role Phone Hillary Apple MD Unavailable [phone] Bill Ferrera MD Unavailable [phone] Tony Dumont MD Unavailable [phone] [address] [facility] Unavailable Unavailable Madyson Clay PharmD Unavailable Unavaila Dana Galicia MANAGER OF PRODUCT-FORM SETTER METAL ROAD FORMS Unavailable [phone] Tiffanie Nguyen MANAGER OF PRODUCT-LOADER ENGINEER Unavailable [phone] Stephanie Mahoney RN Unavailable Unavailable Alycia Galvan RN Unavailable UnavailCesar Allen MD Unavailable [phone] Karie Jones RN Unavailable Unavailable Joy Bob Unavailable Afnta Addison Weinstein PharmD Unavailable Unavailab Alida Chang MANAGER OF PRODUCT-LOADER ENGINEER Primary Care Provider Reason for Visit * Reason Onset Date Comments MEDICATION REFILL 05/09/2021 Encounter Details Date Type Department Care Team (Late st Contact Info) Description 05/09/2021 [facility] [address] [place] [address] Hillary Apple MD [address] [facility] OF HEMATOLOGY & [place] [address] MEDICATION REFILL Social History Tobacco [...] st Contact Info) Description 08/26/2024 11:00 AM INSTRUMENTS SALES REPRESENTATIVE Office Visit [facility] - Pulmonology [address] [facility], [place] [address] Andrew Francis MD [address] [facility] 2L DIV OF PULMONARY/[place] [address] documented as of this encounter Visit Diagnoses Not on filedocumented in this encounter Care Teams Solvent Recoverer Relationship Specialty Start Date End Date Ailda Marshall APRN-LOADER ENGINEER [address] [facility] DIV OF HEMATOLOGY & [place] [address] PCP - General Family Medicine 12/23/20 08/29/21 Hillary Apple MD [address] [place] [address] Hematology and Oncology 03/17/19 Bill Ferrera MD [address] [place] [address] Hematology and Oncology 03/17/19 08/27/21 Tony Dumont MD [address] [place] [address] Hematology and Oncology 03/17/19 Maryjo Reinoso, [facility] Infantry Weapons Officer 03/17/19 Madyson Clay, PharmD 03/17/19 Dana Lala, MANAGER OF PRODUCT-FORM SETTER METAL ROAD FORMS [address] [place] [address] 2nd [place] [address] Oncology 03/17/19 Tfifanie Nguyen, MANAGER OF PRODUCT-LOADER ENGINEER [address] [place] [address] 2nd [place] [address] Family Medicine 03/17/19 Stephanie Mahoney, RN Registered Nurse 03/17/19 10/29/21 Alycia Galvan, ROSEMARY 03/17/19 10/29/21 Cesar Tavares MD Referring Physician Medical Oncology 03/23/19 Karie Jones, RN Registered Nurse 06/08/19 10/29/21 Joy Bob 09/22/19 Addison Shea, PharmD Pharmacist 09/22/19 10/29/21 documented as of this encounter
--- OUTSIDE RECORDS SUMMARY | 2024-08-18 00:22 | XMS_ITS | Encounter Summary ---
Author Organization [facility] Address [address] [facility] [place] [address] Care Team Providers Care Billboard Poster Helper Name Role Phone Hillary Apple MD Unavailable [phone] Tony Dumont MD Unavailable [phone] Maryjo ReinosoW Unavailable Unavailable Madyson Clay PharmD Unavailable Unavaila Dana Galicia LAB ENGINEER-DESULPHURING OPERATOR Unavailable [phone] Tiffanie Nguyen LAB ENGINEER-MARKET ASSET PROTECTION MANAGER Unavailable [phone] Cesar Tavares MD Unavailable [phone] Joy Bob Unavailable Fanta Ran Augustine MD Primary Care Provider Tony Dumont MD Unavailable [phone] Shalini Segal MD Unavailable [phone] Stefanie Burns RN Unavailable UnavailFatemeh Briones RN Unavailable Unavailable Reason for Visit * Reason Onset Date Comments Durable Medical Equipment 11/22/2021 Encounter Details Date Type Department Care Team (Late st Contact Info) Description 11/22/2021 Telephone [facility] [address], [address] [place] [address] JezdiEvy sharp Durable Medical Equipment Social History Tobacco Use Types Packs/Day Years [...] encounter Miscellaneous Notes * Telephone Encounter - Evy Ngo - 11/22/2021 2:01 PM CDT AMB REFERRAL FOR DME (Order #[id number]) on 11/22/21 A referral made to [facility] [phone] fax [phone] Will continue to follow. For any questions or needs please contact: Evy Ngo [facility] Office: [phone] documented in this encounter Plan of Treatment Upcoming Encounters Date Type Department Care Team (Late st Contact Info) Description 08/26/2024 11:00 AM PERFORMANCE TEST ARCHITECT Office Visit [facility] Pul[facility] [address] [place] [address], [place] [id number] Andrew Francis MD [address] [place] [address] 2L DIV OF PULMONARY/[place] [address] documented as of this encounter Visit Diagnoses Not on filedocumented in this encounter Care Teams Billboard Poster Helper Relationship Specialty Start Date End Date Ran Nuñez MD [address] [place] [id number] PCP - General Family Medicine 08/30/21 Hillary Apple MD [address] [place] [address] Hematology and Oncology 03/17/19 Tony Dmuont MD [address] [place] [address] Hematology and Oncology 03/17/19 Maryjo Reinoso, [facility] Precision Crop Manager 03/17/19 Madyson Clay, PharmD 03/17/19 Dana Lala, LAB ENGINEER-DESULPHURING OPERATOR [address] 2nd [place] [address] Oncology 03/17/19 Tiffanie Nguyen, LAB ENGINEER-MARKET ASSET PROTECTION MANAGER [address] 2nd [place] [address] Family Medicine 03/17/19 Cesar Tavares MD [address] 2nd [place] [address] Referring Physician Medical Oncology 03/23/19 Joy Bob 09/22/19 Tony Dumont MD [address] [place] [address] Hematology and Oncology 10/30/21 Shalini Segal MD [address] [place] [address] OF HEMATOLOGY & [place] [address] Local Operator/Oncologist Hematology and Oncology 10/30/21 Stefanie Burns, RN Registered Nurse 10/30/21 Fatemeh Bolaños, RN Registered Nurse 10/30/21 documented as of this encounter
--- OUTSIDE RECORDS SUMMARY | 2024-08-18 00:23 | XMS_ITS | Encounter Summary ---
Author Organization [facility] Address [address] [facility] [place] [address] Care Team Providers Care Specimen Processor Name Role Phone Hillary Apple MD Unavailable [phone] Bill Ferrera MD Unavailable [phone] Tony Dumont MD Unavailable [phone] Maryjo Reinoso [facility] Unavailable Unavailable Madyson Clay PharmD Unavailable Unavaila Dana Galicia HOB GRINDER-GAME BIRD FARMER Unavailable [phone] Tiffanie Nguyen APRN-OUTSIDE SALES REPRESENTATIVE INSURANCE Unavailable [phone] Stephanie Mahoney RN Unavailable Unavailable Alycia Galvan RN Unavailable UnavailCesar Allen MD Unavailable [phone] Karie Jones RN Unavailable Unavailable Joy Bob Unavailable Fanta Addison Weinstein PharmD Unavailable Unavailab Alida Chang HOB GRINDER-OUTSIDE SALES REPRESENTATIVE INSURANCE Primary Care Provider Reason for Visit * Reason Onset Date Comments MEDICATION REFILL 01/02/2021 Encounter Details Date Type Department Care Team (Late st Contact Info) Description 01/02/2021 Refill [facility] CLIN[facility] [address] [place] [address] Tiffanie Nguyen APRN-CNP [address] [place] [id number] MEDICATION REFILL Social History Tobacco Use Types [...] have Coronavirus / COVID-19? No / Unsure 12/20/2020 10:04 AM CDT documented as of this encounter [...] st Contact Info) Description 08/26/2024 11:00 AM DISTRICT REPRESENTATIVE Office Visit [facility] - Pulmonology [address] [facility], [place] [address] Andrew Francis MD [address] [facility] 2L DIV OF PULMONARY/[place] [address] documented as of this encounter Visit Diagnoses Diagnosis Status post autologous bone marrow transplant (HCC)- Primary Bone marrow replaced by transplant Restless legs syndrome (RLS) documented in this encounter Care Teams Specimen Processor Relationship Specialty Start Date End Date Alida Marshall APRN-OUTSIDE SALES REPRESENTATIVE INSURANCE [address] [facility] DIV OF HEMATOLOGY & [place] [address] PCP - General Family Medicine 12/23/20 08/29/21 Hillary Apple MD [facility] [place] [address] Hematology and Oncology 03/17/19 Bill Ferrera MD [address] [place] [address] Hematology and Oncology 03/17/19 08/27/21 Tony Dumont MD [address] [place] [address] Hematology and Oncology 03/17/19 Maryjo Reinoso, CAMPGROUND HAND Automotive Technician 03/17/19 Madyson Clay, PharmD 03/17/19 Dana Lala, HOB GRINDER-GAME BIRD FARMER [address] [place] [address] 2nd [place] [address] Oncology 03/17/19 Tiffanie Nguyen, HOB GRINDER-OUTSIDE SALES REPRESENTATIVE INSURANCE [address] [place] [address] 2nd [place] [address] Family Medicine 03/17/19 Stephanie Mahoney, RN Registered Nurse 03/17/19 10/29/21 Alycia Galvan, RN 03/17/19 10/29/21 Csear Tavares MD Referring Physician Medical Oncology 03/23/19 Karie Jones, RN Registered Nurse 06/08/19 10/29/21 Joy Bob 09/22/19 Addison Shea, PharmD Pharmacist 09/22/19 10/29/21 documented as of this encounter
--- OUTSIDE RECORDS SUMMARY | 2024-08-18 00:23 | XMS_ITS | Encounter Summary ---
Author Organization [facility] Address [address] [facility] [place] [address] Care Team Providers Care Data Abstractor Name Role Phone Hillary Apple MD Unavailable [phone] Bill Ferrera MD Unavailable [phone] Tony Dumont MD Unavailable [phone] Maryjo Reinoso [facility] Unavailable Unavailable Madyson Clay PharmD Unavailable Unavaila Dana Galicia MASS SPECTROMETRY MANAGER-INSOLVENCY CONSULTANT Unavailable [phone] Tiffanie Nguyen MASS SPECTROMETRY MANAGER-JOB COACHING Unavailable [phone] Stephanie Mahoney RN Unavailable Unavailable Alycia Galvan RN Unavailable UnavailCesar Allen MD Unavailable [phone] Karie Jones RN Unavailable Unavailable Joy Bob Unavailable Fanta Addison Weinstein PharmD Unavailable Unavailab Alida Chang MASS SPECTROMETRY MANAGER-JOB COACHING Primary Care Provider Encounter Details Date Type Department Care Team (Late st Contact Info) Description 04/19/2021 Orders Only [facility] BMT CLINIC [address] [place] [address] Karie Jones, RN Status post autologous bone marrow transplant (HCC) ; Hypoxia; Pneumonia due to COVID-19 virus Social History Tobacco Use Types Packs/Day Years [...] st Contact Info) Description 08/26/2024 11:00 AM ELECTRICAL ENGINEERING MANAGER Office Visit [facility] - Pulmonology [address] [facility], [place] [address] Andrew Francis MD [address] [facility] 2L DIV OF PULMONARY/[place] [address] documented as of this encounter Visit Diagnoses Diagnosis Status post autologous bone marrow transplant (HCC)- Primary Bone marrow replaced by transplant Hypoxia Hypoxemia Pneumonia due to COVID-19 virus documented in this encounter Care Teams Data Abstractor Relationship Specialty Start Date End Date Alida Marshall APRN-JOB COACHING [address] [facility] DIV OF HEMATOLOGY & [place] [address] PCP - General Family Medicine 12/23/20 08/29/21 Hillary Apple MD [address] [place] [address] Hematology and Oncology 03/17/19 Bill Ferrera MD [address] [place] [address] Hematology and Oncology 03/17/19 08/27/21 Tony Dumont MD [address] [place] [address] Hematology and Oncology 03/17/19 Maryjo Reinoso, JOURNEYMAN OPERATOR ASSISTANT Commercial Credit Reviewer 03/17/19 Madyson Clay, PharmD 03/17/19 Dana Lala, MASS SPECTROMETRY MANAGER-INSOLVENCY CONSULTANT [address] [facility] 2nd [place] [address] Oncology 03/17/19 Tiffanie Nguyen, MASS SPECTROMETRY MANAGER-JOB COACHING [address] [facility] 2nd [place] [address] Family Medicine 03/17/19 Stephanie Mahoney, RN Registered Nurse 03/17/19 10/29/21 Alycia Galvan, RN 03/17/19 10/29/21 Cesar Tavares MD Referring Physician Medical Oncology 03/23/19 Karie Jones, RN Registered Nurse 06/08/19 10/29/21 Joy Bob 09/22/19 Addison Shea, PharmD Pharmacist 09/22/19 10/29/21 documented as of this encounter
--- OUTSIDE RECORDS SUMMARY | 2024-08-18 00:23 | XMS_ITS | Encounter Summary ---
Author Organization [facility] Address [address] [facility] [place] [address] Care Team Providers Care Animal Physiologist Name Role Phone Hillary Apple MD Unavailable [phone] Bill Ferrera MD Unavailable [phone] Tony Dumont MD Unavailable [phone] Maryjo Reinoso [facility] Unavailable Unavailable Madyson Clay PharmD Unavailable Unavaila Dana Galicia TRAMPOLINE TEAM COACH-CAMP TENDER Unavailable [phone] Tiffanie Nguyen TRAMPOLINE TEAM COACH-SUPPORT TEAM ASSOC Unavailable [phone] Stephanie Mahoney RN Unavailable Unavailable Alycia Galvan RN Unavailable UnavailCesra Allen MD Unavailable [phone] Karie Jones RN Unavailable Unavailable Joy Bob Unavailable Fanta Addison Weinstein PharmD Unavailable Unavailab Alida Chang TRAMPOLINE TEAM COACH-SUPPORT TEAM ASSOC Primary Care Provider Reason for Visit * Reason Onset Date Comments MEDICATION REFILL 04/10/2021 Encounter Details Date Type Department Care Team (Late st Contact Info) Description 04/10/2021 Refill [facility] BMT CLINIC [address] [place] [address] Hillary Apple MD [address] [facility] OF HEMATOLOGY & MEDICAL [place] [address] MEDICATION REFILL Social History Tobacco [...] st Contact Info) Description 08/26/2024 11:00 AM VALVE REPAIRER Office Visit [facility] - Pulmonology [address] [facility], [place] [address] Andrew Francis MD [address] [facility] 2L DIV OF PULMONARY/CRITICAL [place] [address] documented as of this encounter Visit Diagnoses Not on filedocumented in this encounter Care Teams Animal Physiologist Relationship Specialty Start Date End Date Alida Marshall, JOSE DAVID-SUPPORT TEAM ASSOC [address] [facility] DIV OF HEMATOLOGY & MEDICAL [place] [address] PCP - General Family Medicine 12/23/20 08/29/21 Hillary Apple MD [facility] [place] [address] Hematology and Oncology 03/17/19 Bill Ferrera MD [address] [place] [address] Hematology and Oncology 03/17/19 08/27/21 Tony Dumont MD [address] [place] [address] Hematology and Oncology 03/17/19 Maryjo Reinoso, CARD TENDER Tobacco Conditioner 03/17/19 Madyson Clay, PharmD 03/17/19 Dana Lala, TRAMPOLINE TEAM COACH-CAMP TENDER [address] [facility] 2nd [place] [address] Oncology 03/17/19 Tiffanie Nguyen, TRAMPOLINE TEAM COACH-SUPPORT TEAM ASSOC [address] [place] [address] Family Medicine 03/17/19 Stephanie Mahoney, RN Registered Nurse 03/17/19 10/29/21 Alycia Galvan, ROSEMARY 03/17/19 10/29/21 Cesar Tavares MD Referring Physician Medical Oncology 03/23/19 Karie Jones, RN Registered Nurse 06/08/19 10/29/21 Joy Bob 09/22/19 Addison Shea, PharmD Pharmacist 09/22/19 10/29/21 documented as of this encounter
--- OUTSIDE RECORDS SUMMARY | 2024-08-18 00:23 | XMS_ITS | Encounter Summary ---
Author Organization [facility] Address [address] [place] [address] Care Team Providers Care Advanced Nursing Professor Name Role Phone Hillary Apple MD Unavailable [phone] Bill Ferrera MD Unavailable [phone] Tony Dumont MD Unavailable [phone] Maryjo Reinoso [facility] Unavailable Unavailable Madyson Clay PharmD Unavailable Unavaila Dana Galicia UKRAINIAN FOLK ARTS INSTRUCTOR-HIV/AIDS CARE NURSE Unavailable [phone] Tiffanie Nguyen UKRAINIAN FOLK ARTS INSTRUCTOR-OIL RIGGER Unavailable Stephanie Mahoney RN Unavailable Unavailable Alycia Galvan RN Unavailable UnavailCesar Allen MD Unavailable [phone] Karie Jones RN Unavailable Unavailable Joy Bob Unavailable Fanta Addison Weinstein PharmD Unavailable Unavailab Alida Chang UKRAINIAN FOLK ARTS INSTRUCTOR-OIL RIGGER Primary Care Provider Reason for Visit * Reason Onset Date Comments MEDICATION REFILL 01/04/2021 Encounter Details Date Type Department Care Team (Late st Contact Info) Description 01/04/2021 Refill [facility] B[facility] CLINIC [address] [place] [address] Hillary Apple MD [address] [facility] OF HEMATOLOGY & [place] [address] MEDICATION REFILL Social History Tobacco [...] st Contact Info) Description 08/26/2024 11:00 AM IT INFRASTRUCTURE SPECIALIST Office Visit [facility] - Pulmonology [address] [facility], [place] [address] Andrew Francis MD [address] [facility] 2L DIV OF PULMONARY/[place] [address] documented as of this encounter Visit Diagnoses Diagnosis Status post autologous bone marrow transplant (HCC)- Primary Bone marrow replaced by transplant documented in this encounter Care Teams Advanced Nursing Professor Relationship Specialty Start Date End Date Alida Marshall APRN-OIL RIGGER [address] [facility] DIV OF HEMATOLOGY & [place] [address] PCP - General Family Medicine 12/23/20 08/29/21 Hillary Apple MD [address] [place] [address] Hematology and Oncology 03/17/19 Bill Ferrera MD [address] [place] [address] Hematology and Oncology 03/17/19 08/27/21 Tony Dumont MD [address] [place] [address] Hematology and Oncology 03/17/19 Maryjo Reinoso, SENIOR ABAP DEVELOPER Grocery Manager 03/17/19 Madyson Clay, PharmD 03/17/19 Dana Lala, UKRAINIAN FOLK ARTS INSTRUCTOR-HIV/AIDS CARE NURSE [address] [place] [address] 2nd [place]OR [place] [address] Oncology 03/17/19 Tiffanie Nguyen, UKRAINIAN FOLK ARTS INSTRUCTOR-OIL RIGGER [address] [place] [address] 2nd [place] [address] Family Medicine 03/17/19 Stephanie Mahoney, RN Registered Nurse 03/17/19 10/29/21 Alycia Galvan, RN 03/17/19 10/29/21 Cesar Tavares MD Referring Physician Medical Oncology 03/23/19 Karie Jones, RN Registered Nurse 06/08/19 10/29/21 Joy Bob 09/22/19 Addison Shea, PharmD Pharmacist 09/22/19 10/29/21 documented as of this encounter
--- OUTSIDE RECORDS SUMMARY | 2024-08-18 00:23 | XMS_ITS | Encounter Summary ---
Author Organization [facility] Address [address] [facility] [place] [address] Care Team Providers Care Healthcare Social Worker Name Role Phone Hillary Apple MD Unavailable [phone] Bill Ferrera MD Unavailable [phone] Tony Dumont MD Unavailable [phone] Maryjo Reinoso [facility] Unavailable Unavailable Madyson Clay PharmD Unavailable Unavaila Dana Galicia ASSOCIATE ENGINEER-DRAWBRIDGE OPERATOR Unavailable [phone] Tiffanie Nguyen ASSOCIATE ENGINEER-AUTOMOBILE GLASS TECHNICIAN Unavailable [phone] Stephanie Mahoney RN Unavailable Unavailable Alycia Galvan RN Unavailable UnavailCesar Allen MD Unavailable [phone] Karie Jones RN Unavailable Unavailable Joy Bob Unavailable Fanta Addison Weinstein PharmD Unavailable Unavailab Alida Chang ASSOCIATE ENGINEER-AUTOMOBILE GLASS TECHNICIAN Primary Care Provider Reason for Visit * Reason Onset Date Comments Cardiac Rehab 01/29/2021 Encounter Details Date Type Department Care Team (Late st Contact Info) Description 01/29/2021 Telephone [facility] - Cardiopulmonary Rehab [address] [place] [address] Dana Smith, avionics test technician Social History Tobacco Use Types Packs/Day Years [...] encounter Miscellaneous Notes * Telephone Encounter - Dana Smith RN - 01/29/2021 1:46 PM CDT Cardiopulmonary rehab: Left message on machine about making initial evaluation appointment for outpatient exercise program S/P Covid; Contact number has been provided. Thank you. documented in this encounter Plan of Treatment Upcoming Encounters Date Type Department Care Team (Late st Contact Info) Description 08/26/2024 11:00 AM SUPERINTENDENT LAUNDRY Office Visit [facility] - Pulmonology [address] [facility], [place] [address] Andrew Francis MD [address] [facility] 2L DIV OF PULMONARY/[place] [address] documented as of this encounter Visit Diagnoses Not on filedocumented in this encounter Care Teams Healthcare Social Worker Relationship Specialty Start Date End Date Alida Marshall APRN-AUTOMOBILE GLASS TECHNICIAN [address] [facility] DIV OF HEMATOLOGY & [place] [address] PCP - General Family Medicine 12/23/20 08/29/21 Hillary Apple MD [address] [place] [address] Hematology and Oncology 03/17/19 Bill Ferrera MD [address] [place] [address] Hematology and Oncology 03/17/19 08/27/21 Tony Dumont MD [address] [place] [address] Hematology and Oncology 03/17/19 Maryjo Reinoso, TOOL AND DIE MACHINIST Turnaround Planner 03/17/19 Madyson Clay, PharmD 03/17/19 Dana Lala, ASSOCIATE ENGINEER-DRAWBRIDGE OPERATOR [address] [place] [address] 2[place] [address] Oncology 03/17/19 Tiffanie Nguyen, ASSOCIATE ENGINEER-AUTOMOBILE GLASS TECHNICIAN [address] [place] [address] 2[place] [address] Family Medicine 03/17/19 Stephanie Mahoney, RN Registered Nurse 03/17/19 10/29/21 Alycia [place], RN 03/17/19 10/29/21 Cesar Tavares MD Referring Physician Medical Oncology 03/23/19 Karie Jones, RN Registered Nurse 06/08/19 10/29/21 Joy Bob 09/22/19 Addison Shea, PharmD Pharmacist 09/22/19 10/29/21 documented as of this encounter
--- OUTSIDE RECORDS SUMMARY | 2024-08-18 00:23 | XMS_ITS | Encounter Summary ---
Author Organization [facility] Address [address] [address] Care Team Providers Care Neurology Manager Name Role Phone Hillary Apple MD Unavailable [phone] Bill Ferrera MD Unavailable [phone] Tony Dumont MD Unavailable [phone] Maryjo Reinoso [facility] Unavailable Unavailable Madyson Clay PharmD Unavailable Unavaila Dana Galicia TAX CREDIT LEASING CONSULTANT-URBAN PLANNER Unavailable [phone] Tiffanie Nguyen APRN-VASCULAR SONOGRAPHER Unavailable [phone] Stephanie Mahoney RN Unavailable Unavailable Alycia Galvan RN Unavailable UnavailRan Mejía MD Primary Care Provider Cesar Tavares MD Unavailable [phone] Karie Jones RN Unavailable Unavailable Joy Bob Unavailable Fanta Addison Weinstein PharmD Unavailable Unavailab le Encounter Details Date Type Department Care Team (Latest Contact Info) Description 11/16/2020 10:41 AM CDT - 11/16/2020 11:59 PM CDT Hospital Encounter [facility] [address] [place] [address] Tiffanie Nguyen TAX CREDIT LEASING CONSULTANT-VASCULAR SONOGRAPHER [address] [place] [id number] Andrew Francis MD [address] DIV OF PULMONARY/[place] [address] Discharge Disposition: Home or Self Care Social [...] have Coronavirus / COVID-19? No / Unsure 11/16/2020 8:54 AM CDT documented as of this encounter [...] (one) tablet by mouth daily with food acyclovir (ZOVIRAX) 400 MG tabletIndications:St em cells transplant status (HCC) Take 2 tablets by mouth 2 times daily 360 tablet 3 06/07/2020 11/28/2020 budesonide-formotero l (SYMBICORT) 160-4.5 MCG/ACT inhaler Inhale 2 (two) puffs by mouth 2 times daily 1 Inhaler 5 09/28/2020 10/24/2021 clonazePAM (KLONOPIN) 1 MG tablet TAKE 1 TABLET BY MOUTH AT BEDTIME FOR ANXIETY 30 tablet 09/28/2020 02/12/2021 diclofenac sodium EC (VOLTAREN) 75 MG tablet TK 1 T PO BID PRF PAIN 06/05/202006/30 escitalopram (LEXAPRO) 20 MG tablet Take 1 tablet by mouth once daily 30 tablet 11 07/14/2020 08/10/2021 ferrous sulfate 325 (65 FE) MG tablet Take 1 (one) tablet by mouth once daily 100 tablet 10/02/2020 01/03/2021 fluticasone propionate (FLONASE) 50 MCG/ACT nasal spray [...] every 12 hours as needed for Pain 60 tablet 12/21/2020 01/04/2021 oxyCODONE, immediate release, (ROXICODONE) 5 MG tablet Take 1 (one) tablet by mouth every 12 hours as needed for Pain 60 tablet 11/06/2020 12/04/2020 penicillin v potassium (VEETIDS) 250 MG tabletIndications:Di ffuse large B-cell lymphoma, unspecified body region (HCC),S/P splenectomy,Status post autologous bone marrow transplant (HCC) TAKE 1 TABLET BY MOUTH TWICE DAILY 60 tablet 5 03/13/2021 04/10/2021 penicillin v potassium (VEETIDS) 250 MG tablet Take 1 tablet by mouth 2 times daily 60 tablet 5 08/11/2019 03/13/2021 prochlorperazine (COMPAZINE) 10 MG tablet Take 10 mg by mouth every 6 hours as needed 04/27/2019 12/20/2021 rOPINIRole (REQUIP) 0.25 MG tabletIndications:Re stless Leg Syndrome Take 1 tablet by mouth at bedtime Reasons: Restless Leg Syndrome 90 tablet 3 10/29/2019 01/02/2021 saline nasal spray (OCEAN; BABY AYR) 0.65 % nasal spray [place] 2 sprays into each nostril every 2 hours as needed for Dry Nose 04/05/2020 12/20/2021 sulfamethoxazole-tri methoprim (BACTRIM DS; SEPTRA DS) 800-160 MG tabletIndications:PJ P prophylaxis s/p stem cell transplant Take 1 tablet by mouth every Friday, Friday & Friday Reasons: PJP prophylaxis s/p stem cell transplant 12 tablet 3 11/01/2019 01/02/2021 vitamin D3-cholecalciferol (CHOLECALCIFEROL) 25 MCG (1000 UNITS) tablet Take 2 (two) tablets by mouth once daily 180 tablet 3 11/03/2020 06/30/2022 documented as of this encounter Plan of Treatment Upcoming Encounters Date Type Department Care Team (Late st Contact Info) Description 08/26/2024 11:00 AM WELDER OPERATOR Office Visit [facility] - Pulmonology [address] [place] [address], [facility] [place] [address] Andrew Francis MD [address] [place] [address] OF PULMONARY/[place] [address] documented as of this encounter Visit Diagnoses Not on filedocumented in this encounter Additional Health Concerns Infection Onset Date Last Indicated Resolved Time COVID-19 Under Investigation 11/16/2020 11/16/2020 11/16/2020 6:52 PM CDT COVID-19 Confirmed 11/16/2020 11/16/2020 4:35 AM CDT documented as of this encounter Care Teams Neurology Manager Relationship Specialty Start Date End Date Ran Nuñez MD [address] [place] [address] PCP - General Family Medicine 03/22/19 12/22/20 [place] [address] [place] [address] Hematology and Oncology 03/17/19 Bill Ferrera MD [facility] [place] [address] Hematology and Oncology 03/17/19 08/27/21 Tony Dumont MD [facility] [place] [address] Hematology and Oncology 03/17/19 Maryjo Reinoso, CONTRACTING ENGINEER Crane Rigger 03/17/19 Madyson Clay, PharmD 03/17/19 Dana Lala, TAX CREDIT LEASING CONSULTANT-URBAN PLANNER [address] [place] [address] 2nd [place] [address] Oncology 03/17/19 Tiffanie Nguyen, TAX CREDIT LEASING CONSULTANT-VASCULAR SONOGRAPHER [address] [place] [address] 2nd [place] [address] Family Medicine 03/17/19 Stephanie Mahoney, RN Registered Nurse 03/17/19 10/29/21 Alycia Galvan, RN 03/17/19 10/29/21 Cesar Tavares MD [address] [place] [address] [place] [id number] Referring Physician Medical Oncology 03/23/19 Karie Jones, RN Registered Nurse 06/08/19 10/29/21 Joy Bob 09/22/19 Addison Shea, PharmD Pharmacist 09/22/19 10/29/21 documented as of this encounter
--- OUTSIDE RECORDS SUMMARY | 2024-08-18 00:23 | XMS_ITS | Encounter Summary ---
Author Organization [facility] Address [address] [place] [address] Care Team Providers Care Pricing Actuary Name Role Phone Hillary Apple MD Unavailable [phone] Bill Ferrera MD Unavailable [phone] Tony Dumont MD Unavailable [phone] Maryjo Reinoso [facility] Unavailable Unavailable Madyson Clay PharmD Unavailable Unavaila Dana Galicia TENNIS COACH-VALIDATION SCIENTIST Unavailable [phone] Tiffanie Nguyen TENNIS COACH-CORPORATE COORDINATOR Unavailable [phone] Stephanie Mahoney RN Unavailable Unavailable Alycia Galvan RN Unavailable UnavailCesar Allen MD Unavailable [phone] Karie Jones RN Unavailable Unavailable Joy Bob Unavailable Fanta Addison Weinstein PharmD Unavailable Unavailab Alida Chang TENNIS COACH-CORPORATE COORDINATOR Primary Care Provider Reason for Visit * Reason Onset Date Comments MEDICATION REFILL 02/12/2021 Encounter Details Date Type Department Care Team (Late st Contact Info) Description 02/12/2021 Refill [facility] [address] [place] [address] Hillary Apple MD [address] [facility] [place] [address] MEDICATION REFILL Social History Tobacco [...] st Contact Info) Description 08/26/2024 11:00 AM SIGNAL CONSTRUCTOR Office Visit [facility] - Pulmonology [address] [place] [address] Andrew Francis MD [address] [facility] 2L DIV OF PULMONARY/[place] [address] documented as of this encounter Visit Diagnoses Not on filedocumented in this encounter Care Teams Pricing Actuary Relationship Specialty Start Date End Date Alida Marshall, JOSE DAVID-CORPORATE COORDINATOR [address] [facility] DIV OF HEMATOLOGY & [place] [address] PCP - General Family Medicine 12/23/20 08/29/21 Hillary Apple MD [facility] [place] [address] Hematology and Oncology 03/17/19 Bill Ferrera MD [address] [place] [address] Hematology and Oncology 03/17/19 08/27/21 Tnoy Dumont MD [address] [place] [address] Hematology and Oncology 03/17/19 Maryjo Reinoso, COUNTER CASER Minor League Baseball Player 03/17/19 Madyson Clay, PharmD 03/17/19 Dana Lala, TENNIS COACH-VALIDATION SCIENTIST [address] [facility] 2nd [place] [address] Oncology 03/17/19 Tiffanie Nguyen, TENNIS COACH-CORPORATE COORDINATOR [address] [place] [address] Family Medicine 03/17/19 Stephanie Mahoney, RN Registered Nurse 03/17/19 10/29/21 Alycia Galvan, ROSEMARY 03/17/19 10/29/21 Cesar Tavares MD Referring Physician Medical Oncology 03/23/19 Karie Jones, RN Registered Nurse 06/08/19 10/29/21 Joy Bob 09/22/19 Addison Shea, PharmD Pharmacist 09/22/19 10/29/21 documented as of this encounter
--- OUTSIDE RECORDS SUMMARY | 2024-08-18 00:23 | XMS_ITS | Encounter Summary ---
Author Organization [facility] Address [address] [place] [address] Care Team Providers Care [employer] Assistant Football Coach Name Role Phone Hillary Apple MD Unavailable [phone] Bill Ferrera MD Unavailable [phone] Tony Dumont MD Unavailable [phone] Maryjo Reinoso TINNER HELPER Unavailable Unavailable Madyson Clay PharmD Unavailable Unavaila Dana Galicia PATTERNMAKER APPRENTICE METAL-STOREROOM KEEPER Unavailable [phone] Tiffanie Nguyen APRN-MULTI PURPOSE MACHINE OPERATOR Unavailable [phone] Stephanie Mahoney RN Unavailable Unavailable Alycia Galvan RN Unavailable UnavailCesar Allen MD Unavailable [phone] Karie Jones RN Unavailable Unavailable Joy Bob Unavailable Fanta Addison Weinstein PharmD Unavailable Unavailab Alida Chang PATTERNMAKER APPRENTICE METAL-MULTI PURPOSE MACHINE OPERATOR Primary Care Provider Reason for Visit * Oncology Prior Authorization (Routine) - Closed Specialty Diagnoses / Procedures Referred By Contac t Referred To Contact Diagnoses B-cell lymphoma, unspecified B-cell lymphoma type, unspecified body region (HCC) S/P splenectomy Acute respiratory failure with hypoxia (HCC) Pneumonia due to COVID-19 virus Procedures VA INJ IG GAMUNEX IV NONLYO 500 MG Tiffanie Nguyen APRN-MULTI PURPOSE MACHINE OPERATOR [address] [place] [address] [facility] [address] [place] [address] Referral ID Status Reason Start Date Expiration Date Visits Re quested Visits Authorized [id number] Closed 04/24/2020 04/24/2021 1 1 Encounter Details Date Type Department Care Team (Latest Contact Info) Description 02/15/2021 12:56 PM CDT - 02/15/2021 11:59 PM CDT Hospital Encounter [facility] [address] [place] [address] Bill Ferrera MD [address] [place] [address] Tiffanie Nguyen APRN-MULTI PURPOSE MACHINE OPERATOR [address] [place] [id number] Discharge Disposition: Home or Self Care Social [...] have Coronavirus / COVID-19? No / Unsure 02/15/2021 12:55 PM CDT documented as of this encounter Last Filed Vital Signs Vital Sign Reading Time Taken Comments Blood Pressure 117/73 02/15/2021 3:20 PM CDT Pulse 79 02/15/2021 3:20 PM CDT Temperature 36.8 ??C (98.3 ??F) 02/15/2021 3:20 PM CD T Respiratory Rate 16 02/15/2021 3:20 PM CDT Oxygen Saturation 97% 02/15/2021 3:20 PM CDT Inhaled Oxygen Concentration - - Weight 139.3 kg (307 lb 0.9 oz) 02/15/2021 1:08 PM CDT Height - - Body Mass Index 48.08 02/28/2020 7:12 AM CDT documented in this encounter Functional [...] hours as needed for Pain 60 tablet 12/04/2020 03/09/2021 penicillin V potassium (VEETIDS) 250 MG tabletIndications:Di ffuse large B-cell lymphoma, unspecified body region ([facility]),S/P splenectomy,Status post autologous bone marrow transplant ([facility]) Take 1 (one) tablet by mouth 2 times daily 60 tablet 5 04/10/2021 04/21/2021 penicillin v potassium (VEETIDS) 250 MG tabletIndications:Di ffuse large B-cell lymphoma, unspecified body region ([facility]),S/P splenectomy,Status post autologous bone marrow transplant ([facility]) TAKE 1 TABLET BY MOUTH TWICE DAILY 60 tablet 5 03/13/2021 04/10/2021 penicillin v potassium (VEETIDS) 250 MG tablet Take 1 tablet by mouth 2 times daily 60 tablet 5 08/11/2019 03/13/2021 prochlorperazine (COMPAZINE) 10 MG tablet Take 10 mg by mouth every 6 hours as needed 04/27/2019 12/20/2021 saline nasal spray (OCEAN; BABY AYR) 0.65 % nasal spray Marquand 2 sprays into each nostril every 2 hours as needed for Dry Nose 04/05/2020 12/20/2021 sulfamethoxazole-tri methoprim (BACTRIM DS; SEPTRA DS) 800-160 MG tabletIndications:St atus post autologous bone marrow transplant ([facility]) Take 1 (one) tablet by mouth every [...] as of this encounter Progress Notes * Stefanie Burns RN - 02/15/2021 4:04 PM CDT Patient presented today for re-vaccination following autologous hematopoetic stem cell transplant (Day 0: 10/20/2019). Reviewed titer history and planned immunizations with interdisciplinary team. No significant interactions noted among immunizations to be given today. BMT Vaccination Screening reviewed (patient denied history of serious immunization reaction including seizures/confusion within 1 week post vaccine, and history of Guillan-Hamilton Syndrome within 6 weeks post influenza vaccine). Patient afebrile today and without signs/symptoms of infection. Patient c ompleted COVID-19 vaccination series > 2 weeks ago. Education provided on vaccines to be administered today, including necessity of re-vaccination after transplant, to report signs and symptoms of adverse reactions, and possible side effects of vaccinations including mild soreness at injection sites. Patient verbalized understanding and agreement. HiB, Prevnar, IPV, & DTaP vaccinations given and explained. Patient tolerated injections well. Next BMT clinic appt to be scheduled same day as pulmonology follow up; to be determined. * Tiffanie Nguyen APRN-CNP - 02/15/2021 7:51 AM CDT Autologous Hematopoietic Stem Cell Daily Note: PATIENT IDENTIFIERS: MARCELLO LUIS is a 50 year old male who is Day +484 (Day 0 is 10/20/19) of an autologous peripheral blood stem cell transplant with a 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 INTERVAL HISTORY Aurelio presents to clinic ambulatory Overall feeling well, getting stronger eslowly 4-5L when up walking, no O2 at rest or sleeping Walking around more frequently and easier Headaches less frequent No sleep study yet Hasn't gotten in touch with cardiopulmonary rehab O2 drops to 55-60 with increased activity, HR does increase to 140-150 Rash to bilateral palms, left foot and left calf. At first they burned but now just pruritic. Have improved over past couple of weeks ROS: A comprehensive review of systems was [...] 2 (two) puffs by mouth 2 timesdaily ??? clonazePAM (KLONOPIN) 1 MG tablet TAKE 1 TABLET BY MOUTH AT BEDTIME FOR ANXIETY ??? diclofenac sodium EC (VOLTAREN) 75 MG tablet TK 1 T PO BID PRF PAIN ??? escitalopram (LEXAPRO) 20 MG tablet Take 1 tablet by mouth once daily ??? FEROSUL 325 (65 Fe) MG tablet [...] hours as needed for Pain ??? penicillin v potassium (VEETIDS) 250 MG tablet Take 1 tablet by mouth 2 times daily ??? prochlorperazine (COMPAZINE) 10 MG tablet Take 10 mg by mouth every 6 hours as needed ??? rOPINIRole (REQUIP) 0.25 MG tablet Take 1 (one) tablet by mouth at bedtime Reasons: Restless Leg Syndrome ??? saline nasal spray (OCEAN; BABY AYR) 0.65 % nasal spray Marquand 2 sprays into each nostril every 2 hours as needed for Dry Nose ??? sulfamethoxazole-trimethoprim (BACTRIM DS; SEPTRA DS) 800-160 MG tablet Take 1 (one) tablet by mouth every Friday, Friday & Friday Reasons: PJP prophylaxis s/p stem cell transplant ??? vitamin D3-cholecalciferol (CHOLECALCIFEROL) 25 MCG (1000 UNITS) tablet Take 2 (two) tablets bymouth once daily Current Facility-Administered Medications Medication ??? immune globulin (GAMUNEX-C) 10 % 40 g VITALS: Vitals: 02/15/21 1308 02/15/21 1416 02/15/21 1436 02/15/21 1520 BP: 112/81 125/84 117/73 Pulse: 93 83 79 79 Resp: 18 16 16 16 Temp: 98.2 ??F 98 ??F 98.4 ??F 98.3 ??F SpO2: 100% 96% 96% 97% Weight: (!) 139.3 kg (307 lb 0.9 oz) Wt Readings from Last 3 Encounters: 02/15/21 (!) 139.3 kg (307 lb 0.9 oz) 12/20/20 (!) 141.2 kg (311 lb 5 oz) 11/16/20 (!) 140.2 kg (309 lb) PHYSICAL EXAM: Karnofsky/ECO/2 Physical Examination: General appearance - alert, well appearing, and in no distress Mental status - alert, oriented to person, place, and time Chest - clear to auscultation, no wheezes, rales or rhonchi, symmetric air entry Heart - normal rate, regular rhythm, normal S1, S2, no murmurs, rubs, clicks or gallops Abdomen - soft, nontender, nondistended, no masses or organomegaly Extremities - peripheral pulses normal, no pedal edema, no clubbing or cyanosis Skin - pink blisters/scabbed dermatitis to bilateral palms, small [place] to left calf and top of foot LABS: Recent Labs Component Name 02/15/21 1325 12/20/20 1035 12/20/20 1035 11/16/20 1120 09/28/20 1438 09/28/20 1438 08/31/20 1335 08/31/20 1335 03/18/20 2357 WBC 16.0* - 12.5* 11.7* - 10.2 - 13.4* - RBC 4.27* - 4.28* 4.31 - 4.59 - 4.55 - HGB 13.4 - 12.8 12.7* - 12.3* - 10.9* - HCT 39.5 - 37.5 37.4* - 38.5* - 34.8* - MCV 92.5 - 87.6 86.8 - 83.9 - 76.5* - MCH 31.4 - 29.9 29.5 - 26.8* - 24.0* - MCHC 33.9 - 34.1 34.0 - 31.9* - 31.3* - PLTCOUNT 366 - 350 368 - 470* - 548* - RDWSD 57.5* - 60.7* 66.4* - 76.1* - 65.8* - RDW 16.8* - 18.9* 20.9* - 25.6* - 24.6* - MPV 10.5 - 11.0 11.0 - 9.9 - 10.4 - NRBCABS 0.00 - 0.00 0.00 - 0.00 - 0.02* - NRBCAUTOPCT 0.0 - 0.0 0.0 - 0.0 - 0.1* - NEUTPCT - - - 54.6 - 49.6 - 62.5 - LYMPHSPCT - - - 33.4 - 33.4 - 24.0 - MONOPCT - - - 6.6 - 7.5 - 7.1 - EOSPCT 1 - - 3.7 - 7.3* - 4.6 - BASOPCT - - - 1.4 - 1.9* - 1.2 - IMMGRANSPCT - - - 0.3 - 0.3 - 0.6 - NEUTABS 10.24* - 7.75* 6.4 - 5.1 - 8.4* - LYMPHS 5.44* - 4.50* 3.9* - 3.4* - 3.2* - MONO 0.16* - - 0.77* - 0.77* - 0.95* - EOS 0.16 - - 0.43 - 0.75* - 0.62* - BASO - - - 0.16* - 0.19* - 0.16* - TOTCELLCNT 100 - 100 - - - - - - - = values in this interval not displayed. Recent Labs Component Name 02/15/21132412/20/20 1035 11/16/20 1120 BUN 13 12 12 CREATININE 1.12 [...] 76* 81* >60 Recent Labs Component Name 02/15/215 12/20/20 1035 11/16/20 1120 MAGNESIUM 1.8 2.0 1.9 Recent Labs Component Name 02/15/215 12/20/20 1035 11/16/20 1120 PHOS 2.5* 2.1* 2.0* IgG (02/15/21) 455- IVIG given RADIOLOGY ECHO with Bubble Study (11/16/20) Technically difficult/suboptimal echocardiogram. The left ventricle is [...] shunt by bubble study or Doppler interrogation. CT Chest (09/28/20) Interval development of areas of reticulation, cystic change, and bronchiectasisas detailed above, with some areas of volume loss. The findings suggest postinflammatory fibrosis. 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 SYSTEMS: Marginal Zone Lymphoma in CR2 pre-transplant Schema: 5A Prep: BEAM, Cell count 10.4 x 10^6 CD34+cells/kg in 5 bags; day [address] A/P -- BMBx completed (03/03/20) c/w CR -Transfusion threshold: Hgb > 7; Plt > 10; CMV +, transfusion pre meds: none needed -Engraftment: ANC day +9 (10/29/19); plt engraftment 11/03/19 (day +14) ?? OI prophylaxis: Bacterial:??Pen VK, will need for life as he is asplenic PJP:??Bactrim DS MWF Viral: ACV 800 mg BID COVID -tested positive early January 2020, asymptomatic at that time -Covid from bronch 03/07 and REGISTERED PHLEBOTOMIST PART TIME swab 03/07 both positive. Remained positive until 12/20/20. Covid IgG remains negative, repeated today (02/15/21) remains negative -received remdesivir 03/08 - 03/12 & convalescent plasma 03/10, completed steroids -continue albuterol PRN; advair was too costly so Symbicort was sent in today -O2 NC to keep sats >90, RA with rest. Aurelio is requesting 5L portable O2 concentrator through [facility] so he can be more mobile and not rely solely on O2 tank at home -plan IVIG monthly, dose #8 given today (02/1521) -follows Dr. Francis outpatient, seen 02/15/21. Will get PFTs with next visit > CT chest non-contrast as above > inflammatory markers remain mildly elevated (09/28/20) > ECHO with bubble study (11/16/20) as above >start cardiopulmonary rehab. This has been delayed due to infection prevention concerns. Aurelio has phone number and will call to set this up. >nocturnal pulse oximetry study given weight gain and fibrotic lungs, hasn't been wearing O2 at night and if he has LISSA this could worsen his symptoms- Was never sent the pulse ox. Will refer him to sleep medicine given length of time since last sleep study and need for new CPAP settings >will f/u with Dr. Francis 05/17/21 @ 1300 -unlikely to have antibodies due to B cell lymphoma treatment, likely permanent damage and lungs are scarred/fibrotic Anemia -continue ferrous sulfate 325 mg daily Migraine Headaches -occur when O2 drops and HR increases, improving in frequency -saw neurology 10/06/20, no changes to plan -minimize hypoxic episodes, minimize oxycodone use due to risk of rebound headache. -Tylenol PRN, oxycodone if no relief Dermatitis - odd locations of bilateral palms, left shea and top of left foot. Overall improved in appearance compared to pictures from patients phone. Noted after he got Covid vaccine - hydrocortisone cream, if don't improve consider derm consult Anxiety/Depression - Lexapro 20 mg daily - klonopin to 1 mg QHS Pertinent Medical Hx: -Restless leg syndrome: requip 0.25 mg QHS -Right IJ venous clot 09/27/19: eliquis stopped Jun 2020 Immunization Immunization History Administered Date(s) Administered ??? DTAP 5 PERTUSSIS ANTIGENS 07/14/2020, 09/28/2020, 02/15/2021 ??? FLU VACCINE IIV INC ANTIG PF IM 05/24/2019 ??? HEP A/HEP B 07/14/2020, 09/28/2020 ??? HIB-PRP-T 4 DOSE 08/11/2019, 06/16/2020, 08/31/2020, 02/15/2021 ??? MENINGOCOCCAL MCV4O 08/11/2019, 06/16/2020, 08/31/2020 ??? PFIZER SARS-COV-2 COVID-19 VACCINE 0.3ML 11/16/2020, 12/07/2020 ??? PNEUMOCOCCAL PPSV23 08/11/2019 ??? POLIO IPV 07/14/2020, 09/28/2020, 02/15/2021 ??? Pneumococcal Pcv13 Conj 06/16/2020, 08/31/2020, 02/15/2021 ??? Zoster Hzv Vacc Recombinant Inj Im 07/14/2020, 09/28/2020 Discharge Planning: Patients preferred contact information: cell Caregiver: sister, girlfriend Preferred D/C Pharmacy: [facility] Intended lodging: home Referring provider: Cesar Tavares Disposition: RTC 6-8 weeks for MIGUEL visit with basics, IgG, IVIG and ? Vaccines, then RTC 05/17 for PFTs and visit with Dr. Francis. Tiffanie Nguyen, MISSY- [facility] Mar[facility] Transplant [facility] documented in this encounter Plan of Treatment Upcoming Encounters Date Type Department Care Team (Late st Contact Info) Description 08/26/2024 11:00 AM CORPORATE ATTORNEY Office Visit [facility] - Pulmonology [address] [place] [address], [place] [id number] Andrew Francis MD [address] [place] [address] [address]L DIV OF PULMONARY/[place] [address] documented as of this encounter Procedures Procedure Name Priority Date/Time Associated Diagnosis Comments SARS-COV-2 (COVID-19) ANTIBODY IGG Routine 02/15/2021 1:25 PM CDT Pneumonia due to COVID-19 virus DIFFERENTIAL MANUAL STAT 02/15/2021 1 :25 PM CDT Diffuse large B-cell lymphoma, unspecified body region (HCC) CBC W AUTO DIFFERENTIAL STAT 02/15/2021 1:25 PM CDT Diffuse large B-cell lymphoma, unspecified body region (HCC) COMPREHENSIVE METABOLIC PANEL STAT 02/15/2021 1:25 PM CDT Diffuse large B-cell lymphoma, unspecified body region (HCC) PHOSPHORUS BLOOD STAT 02/15/2021 1:25 PM CDT Diffuse large B-cell lymphoma, unspecified body region (HCC) MAGNESIUM BLOOD STAT 02/15/2021 1:25 PM CDT Diffuse large B-cell lymphoma, unspecified body region (HCC) IGG BLOOD Routine 02/15/2021 1:25 PM CDT Diffuse large B-cell lymphoma, unspecified body region (HCC) documented in this encounter Results * (ABNORMAL) DIFFERENTIAL MANUAL (02/15/2021 1:25 PM CDT) WBC (corrected for NRBC) 16.0 10? 3 /uL 02/15/2021 2:38 PM [facility] Total Cell Count 100 02/16/20 21 2:38 PM [facility] Neutrophils Absolute Manual 10.24(H) 1.60 - 7.00 10? 3 /uL 02/15/2021 2:38 PM [facility] Comment:(BANDS+SEGS) x WBC = NEUT # (ANC) Lymphocyte Absolute Manual 5.44(H) 1.10 - 3.90 10? 3 /uL 02/15/2021 2:38 PM [facility] Monocytes Absolute Manual 0.16(L) 0.26 - 1.07 10? 3 /uL 02/15/2021 2:38 PM [facility] Eosinophils Absolute Manual 0.16 0.00 - 0.47 10? 3 /uL 02/15/2021 2:38 PM [facility] Neutrophil % Manual 64 35 - 70 % 02/15/2021 2:38 PM [facility] Lymphocyte % Manual 34 20 - 43 % 02/15/2021 2:38 PM [facility] Monocytes % Manual 1(L) 5 - 13 % 02/15/2021 2:38 PM [facility] Eosinophils % Manual 1 0 - 6 % 02/15/2021 2:38 PM [facility] Platelet Estimate Adequate Adequate 02/15/2021 2:38 PM [facility] Anisocytosis 1+(A) None 02/15/2021 2:38 PM [facility] Blank-[place] Bodies Rare(A) None 02/15/2021 2:38 PM [facility] Target Cells 1+(A) None 02/15/2021 2:38 PM [facility] Ovalocytes Few(A) None 02/15/2021 2:38 PM [facility] Blood BLOOD SPECIMEN / Unknown Venipuncture / Unknown 02/15/2021 1:25 PM CDT 02/15/2021 1:35 PM CDT Tiffanie Nguyen [facility] - HEMATOLOG Y ORDERABLES [address] [address], [facility] [phone] * (ABNORMAL) IGG BLOOD (02/15/2021 1:25 PM CDT) IgG 455(L) 767-1,590 mg/dL 02/15/2021 2:17 PM CDT [facility] Blood BLOOD SPECIMEN / Unknown Venipuncture / Unknown 02/15/2021 1:25 PM CDT 02/15/2021 1:32 PM CDT Tiffanie Nguyen [facility] - CHEMISTRY ORDERABLES Performing Organization Address City/[facility]/ZIP Co de Phone Number [address] [address], [facility] [phone] * (ABNORMAL) PHOSPHORUS BLOOD (02/15/2021 1:25 PM CDT) Phosphorus 2.5(L) 2.8 - 5.1 mg/dL 02/15/2021 2:02 PM CDT [facility] Blood BLOOD SPECIMEN / Unknown Venipuncture / Unknown 02/15/2021 1:25 PM CDT 02/15/2021 1:35 PM CDT Tiffanie Nguyen [facility] - CHEMISTRY ORDERABLES [address] [address], [facility] [phone] * MAGNESIUM BLOOD (02/15/2021 1:25 PM CDT) Magnesium 1.8 1.6 - 2.6 mg/dL 02/15/2021 2:02 PM CDT [facility] Blood BLOOD SPECIMEN / Unknown Venipuncture / Unknown 02/15/2021 1:25 PM CDT 02/15/2021 1:35 PM CDT Tiffanie Nguyen PATTERNMAKER APPRENTICE METAL-MULTI PURPOSE MACHINE OPERATOR LAB - CHEMISTRY ORDERABLES [facility] [address] [place] [address], [facility] [phone] * (ABNORMAL) CBC W AUTO DIFFERENTIAL (02/15/2021 1:25 PM CDT) WBC 16.0(H) 3.5 - 10.5 10? 3 /uL 02/15/2021 1:42 PM [facility] RBC 4.27(L) 4.30 - 5.70 10? 6 /uL 02/15/2021 1:42 PM [facility] Hemoglobin 13.4 12.0 - 17.6 g/dL 02/15/2021 1:42 PM [facility] Hematocrit 39.5 35.2 - 51.7 % 02/15/2021 1:42 PM [facility] MCV 92.5 80.7 - 98.3 fL 02/15/2021 1:42 PM [facility] MCH 31.4 26.7 - 34.0 pg 02/15/2021 1:42 PM [facility] MCHC 33.9 30.8 - 35.9 g/dL 02/15/2021 1:42 PM [facility] Platelet Count 366 150 - 400 10? 3 /uL 02/15/2021 1:42 PM [facility] RDW-SD 57.5(H) 36.0 - 50.0 fL 02/15/2021 1:42 PM [facility] RDW-CV 16.8(H) 11.2 - 14.8 % 02/15/2021 1:42 PM [facility] MPV 10.5 9.4 - 12.9 fL 02/15/2021 1:42 PM [facility] nRBC Absolute 0.00 0 10? 3 /uL 02/15/2021 1:42 PM [facility] nRBC Auto 0.0 0 /100 WBC 02/15/2021 1:42 PM [facility] Blood BLOOD SPECIMEN / Unknown Venipuncture / Unknown 02/15/2021 1:25 PM CDT 02/15/2021 1:35 PM CDT Tiffanie Nguyen PATTERNMAKER APPRENTICE METAL-MULTI PURPOSE MACHINE OPERATOR LAB - HEMATOLOG Y ORDERABLES Performing Organization Address City/State/[facility] Co de Phone Number [facility] [address] [place] [address], [facility] [phone] * (ABNORMAL) COMPREHENSIVE METABOLIC PANEL (02/15/2021 1:25 PM CDT) BUN 13 7 - 26 mg/dL 02/15/2021 2:02 PM [facility] Creatinine 1.12 0.71 - 1.16 mg/dL 02/15/2021 2:02 PM [facility] Sodium 143 136 - 145 mmol/L 02/15/2021 2:02 PM [facility] Potassium 4.5 3.5 - 4.5 mmol/L 02/15/2021 2:02 PM [facility] Chloride 108(H) 98 - 107 mmol/L 02/15/2021 2:02 PM [facility] CO2 30(H) 22 - 29 mmol/L 02/15/2021 2:02 PM [facility] Glucose 94 70 - 115 mg/dL 02/15/2021 2:02 PM [facility] Calcium 9.4 8.4 - 10.2 mg/dL 02/15/2021 2:02 PM [facility] Protein Total 6.4 6.0 - 8.3 g/dL 02/15/2021 2:02 PM [facility] Albumin 3.9 3.4 - 5.0 g/dL 02/15/2021 2:02 PM [facility] Bilirubin Total 0.2 0.2 - 1.2 mg/dL 02/15/2021 2:02 PM [facility] Alkaline Phosphatase 122 40 - 150 U/L 02/15/2021 2:02 PM [facility] ALT 51 5 - 55 U/L 02/15/2021 2:02 PM [facility] AST 26 5 - 34 U/L 02/15/2021 2:02 PM [facility] Anion Gap 10 8 - 18 02/15/2021 2:02 PM [facility] BUN/Creatinine Ratio 12 7 - 23 02/15/2021 2:02 PM [facility] Osmolality Calculated 296 270 - 300 mOsm/kg 02/15/2021 2:02 PM [facility] Albumin/Globulin Ratio 1.6 1.1 - 2.3 02/15/2021 2:02 PM [facility] eGFR by CKD-EPI 76(L) >=90 mL/min/1.7 3 m2 02/15/2021 2:02 PM [facility] Blood BLOOD SPECIMEN / Unknown Venipuncture / Unknown 02/15/2021 1:25 PM CDT 02/15/2021 1:35 PM CDT Lara Patrick PATTERNMAKER APPRENTICE METAL-MULTI PURPOSE MACHINE OPERATOR LAB - CHEMISTRY ORDERABLES [facility] [address] [place] [address], [facility] [phone] * SARS-COV-2 (COVID-19) ANTIBODY IGG (02/15/2021 1:25 PM CDT) CoV2 IGG Negative 02/16/2021 12:18 AM CDT [facility] Blood BLOOD SPECIMEN / Unknown Venipuncture / Unknown 02/15/2021 1:25 PM CDT 02/15/2021 1:32 PM CDT Narrative [facility] - 02/16/2021 12:18 AM CDT This serologic based test was developed by [employer] and its performance characteristics determined by [facility]. This test has not been [...] due to past or present infection with [id number] coronavirus strains. Rigorous scientific studies have not been completed to determine if detectable IgG to SARS-CoV-2 confers protective immunity. Tiffanie Nguyen PATTERNMAKER APPRENTICE METAL-MULTI PURPOSE MACHINE OPERATOR LAB - CHEMISTRY ORDERABLES [id number] [place] [address], [facility] [phone] documented in this encounter Visit Diagnoses Diagnosis Status post autologous bone marrow transplant (HCC)- Primary Bone marrow replaced by transplant Pneumonia due to COVID-19 virus Diffuse large B-cell lymphoma, unspecified body region (HCC) Acute respiratory failure with hypoxia (HCC) Acute respiratory failure 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-cell lymphoma, unspecified B-cell lymphoma type, unspecified body region (HCC) Anemia, unspecified type Dermatitis Contact dermatitis and other eczema, due to unspecified cause documented in this encounter Administered Medications Inactive Administered Medications - up to 3 most recent administrations Medication Order MAR Action Action Date Dose Rate Site immune globulin (GAMUNEX-C) 10 % 40 g 40 g (rounded from 36.4 g = 0.4 g/kg ? 91 kg Order-specific weight), at 0-999 mL/hr, Intravenous, CONTINUOUS, Starting on Ofelia 02/15/21 at 1030, Until Ofelia 02/15/21 at 1629, If patient has history of IVIG infusion related reactions, administer premedications 30 minutes prior to starting IVIG infusion. Actual Weight for Rate Calculation: Wt Initiate IVIG at 0.5 mg/kg/min (34 mL/hr with VTBI: 8.53 mL) for 15 minutes. If tolerated, increase rate to 1 mg/kg/min (68 mL/hr with VTBI: 17.06 mL ) for 15 min. If tolerated, increase rate to 2 mg/kg/min (136 mL/hr with VTBI: 34.11 mL ) for 15 min. If tolerated, increase rate to 4 mg/kg/min (273 mL/hr with VTBI: 68.22 mL ) for 15 min. If tolerated, increase rate to 8 mg/kg/min (546 mL/hr with VTBI: 136.44 mL or until bag contents completely infused) See IVIG Monitoring order in Nursing Communications for monitoring instructions. Do NOT infuse with concurrent fluids.?? IVIG should be infused alone. Rate Change 02/15/2021 2:41 PM CDT 546 mL /hr Rate Change 02/15/2021 2:18 PM CDT 273 mL/hr Rate Change 02/15/2021 2:01 PM CDT 136 mL/hr prochlorperazine (Compazine) injection 10 mg 10 mg, Intravenous, ONCE, 1 dose, On Ofelia 02/15/21 at 1000, Max intravenous rate = 5 mg/min $ Given 02/15/2021 2:36 PM CDT 10 mg documented in this encounter Care Teams [employer] Assistant Football Coach Relationship Specialty Start Date End Date Alida Marshall APRN-MULTI PURPOSE MACHINE OPERATOR [address] [facility] OF HEMATOLOGY & [place] [address] PCP - General Family Medicine 12/23/20 08/29/21 Hillary Apple MD [address] [place] [id number] Hematology and Oncology 03/17/19 Bill Ferrera MD [address] [place] [phone] Hematology and Oncology 03/17/19 08/27/21 Tony Dumont MD [address] [place] [address] Hematology and Oncology 03/17/19 Maryjo Reinoso, TINNER HELPER Stem Roller Operator 03/17/19 Madyson Clay, PharmD 03/17/19 Dana Lala APRN-STOREROOM KEEPER [address] [place] [address] 2nd FLOOR [facility] [place] [address] Oncology 03/17/19 Tiffanie Nguyen, PATTERNMAKER APPRENTICE METAL-MULTI PURPOSE MACHINE OPERATOR [address] 2nd [place] [address] Family Medicine 03/17/19 Stephanie Mahoney, RN Registered Nurse 03/17/19 10/29/21 Alycia Galvan, ROSEMARY 03/17/19 10/29/21 Cesar Tavares MD Referring Physician Medical Oncology 03/23/19 Karie Jones, RN Registered Nurse 06/08/19 10/29/21 Joy Bob 09/22/19 Addison Shea, PharmD Pharmacist 09/22/19 10/29/21 documented as of this encounter
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
--- OUTSIDE RECORDS SUMMARY | 2024-08-18 00:23 | XMS_ITS | Encounter Summary ---
Author Organization [facility] Address [address] [place] [address] Care Team Providers Care Epic Radiant Analyst Name Role Phone Hillary Apple MD Unavailable [phone] Bill Ferrera MD Unavailable [phone] Tony Dumont MD Unavailable [phone] Maryjo Reinoso [facility] Unavailable Unavailable Madyson Clay PharmD Unavailable Unavaila Dana Galicia DIVISION CHAIR-CAKE KNOCKER Unavailable [phone] Tiffanie Nguyen APRN-JACK PRIZER Unavailable [phone] Stephanie Mahoney RN Unavailable Unavailable Alycia Galvan RN Unavailable UnavailCesar Allen MD Unavailable [phone] Karie Jones RN Unavailable Unavailable Joy Bob Unavailable Fanta Addison Weinstein PharmD Unavailable Unavailab Alida Chang DIVISION CHAIR-JACK PRIZER Primary Care Provider Reason for Visit * Reason Comments Refill Request Encounter Details Date Type Department Care Team (Late st Contact Info) Description 01/03/2021 Refill [facility] BMT CLINIC [address] [place] [address] Tiffanie Nguyen APRN-CNP [address] [place] [id number] Refill Request Social History Tobacco Use Types [...] st Contact Info) Description 08/26/2024 11:00 AM PRE SALES SYSTEMS ENGINEER Office Visit [facility] - Pulmonology [address] [facility], [place] [address] Andrew Francis MD [address] [facility] 2L DIV OF PULMONARY/[place] [address] documented as of this encounter Visit Diagnoses Not on filedocumented in this encounter Care Teams Epic Radiant Analyst Relationship Specialty Start Date End Date Alida Marshall APRN-JACK PRIZER [address] [facility] DIV OF HEMATOLOGY & [place] [address] PCP - General Family Medicine 12/23/20 08/29/21 Hillary Apple MD [address] [place] [address] Hematology and Oncology 03/17/19 Bill Ferrera MD [address] [place] [address] Hematology and Oncology 03/17/19 08/27/21 Tony Dumont MD [address] [place] [address] Hematology and Oncology 03/17/19 Maryjo Reinoso, TRAVEL MED SURG RN Core Sticker 03/17/19 Madyson Clay, PharmD 03/17/19 Dana Lala, DIVISION CHAIR-CAKE KNOCKER [address] [place] [address] 2nd [place] [address] Oncology 03/17/19 Tiffanie Nguyen, DIVISION CHAIR-JACK PRIZER [address] [place] [address] 2nd [place] [address] Family Medicine 03/17/19 Stephanie Mahoney, RN Registered Nurse 03/17/19 10/29/21 Alycia Galvan, ROSEMARY 03/17/19 10/29/21 Cesar Tavares MD Referring Physician Medical Oncology 03/23/19 Karie Jones, RN Registered Nurse 06/08/19 10/29/21 Joy Bob 09/22/19 dAdison Shea, PharmD Pharmacist 09/22/19 10/29/21 documented as of this encounter
--- OUTSIDE RECORDS SUMMARY | 2024-08-18 00:23 | XMS_ITS | Encounter Summary ---
Author Organization [facility] Address [address] [facility] [place] [address] Care Team Providers Care Marketing Systems Analyst Name Role Phone Hillary Apple MD Unavailable [phone] Bill Ferrera MD Unavailable [phone] Tony Dumont MD Unavailable [phone] Maryjo ReinosoW Unavailable Unavailable Madyson Clay PharmD Unavailable Unavaila Dana Galicia INBOUND SALES ADVISOR-PLASMA PROCESSOR Unavailable [phone] Tiffanie Nguyen INBOUND SALES ADVISOR-DRILL GRINDER Unavailable [phone] Stephanie Mahoney RN Unavailable Unavailable Alycia Galvan RN Unavailable UnavailRan Mejía MD Primary Care Provider Cesar Tavares MD Unavailable [phone] Karie Jones RN Unavailable Unavailable Joy Bob Unavailable Fanta Addison Weinstein PharmD Unavailable Unavailab le Encounter Details Date Type Department Care Team (Latest Contact Info) Description 11/16/2020 Travel Social History Tobacco Use Types Packs/Day [...] st Contact Info) Description 08/26/2024 11:00 AM SECTION LEADER Office Visit [facility] Group - Pulmonology [address] [place] [address], [place] [address] Andrew Francis MD [address] [place] [address] OF PULMONARY/[place] [address] documented as of this encounter Visit Diagnoses Not on filedocumented in this encounter Additional Health Concerns Infection Onset Date Last Indicated Resolved Time COVID-19 Under Investigation 11/16/2020 11/16/2020 11/16/2020 6:52 PM CDT COVID-19 Confirmed 11/16/2020 11/16/2020 4:35 AM CDT documented as of this encounter Care Teams Marketing Systems Analyst Relationship Specialty Start Date End Date Ran Nuñez MD [address] [place] [address] PCP - General Family Medicine 03/22/19 12/22/20 Hillary Apple MD [address] [place] [address] Hematology and Oncology 03/17/19 Bill Ferrera MD [address] [place] [address] Hematology and Oncology 03/17/19 08/27/21 Tony Dumont MD [address] [place] [address] Hematology and Oncology 03/17/19 Maryjo Reinoso, MICROFILM CAMERA OPERATOR Warehouse Logistics Coordinator 03/17/19 Madyson Clay, PharmD 03/17/19 Dana Lala, INBOUND SALES ADVISOR-PLASMA PROCESSOR [address] [place] [address] 2nd [place] [address] Oncology 03/17/19 Tiffanie Nguyen, INBOUND SALES ADVISOR-DRILL GRINDER [address] [place] [address] [place] [address] Family Medicine 03/17/19 Stephanie Mahoney, RN Registered Nurse 03/17/19 10/29/21 Alycia Galvan, ROSEMARY 03/17/19 10/29/21 Cesar Tavares MD [address] [place] [address] [place] [address] Referring Physician Medical Oncology 03/23/19 Karie Jones, RN Registered Nurse 06/08/19 10/29/21 Joy Bob 09/22/19 Addison Shea, PharmD Pharmacist 09/22/19 10/29/21 documented as of this encounter
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
--- OUTSIDE RECORDS SUMMARY | 2024-08-18 00:23 | XMS_ITS | Encounter Summary ---
Author Organization [facility] Address [address] [facility] [place] [address] Care Team Providers Care Retanner Name Role Phone Hillary Apple MD Unavailable [phone] Bill Ferrera MD Unavailable [phone] Tony Dumont MD Unavailable [phone] Maryjo Reinoso [facility] Unavailable Unavailable Madyson Clay PharmD Unavailable Unavaila Dana Galicia OPTICAL FABRICATION TECHNICIAN-CONSTRUCTION SUPERINTENDENT Unavailable [phone] Tiffanie Nguyen APRN-EXECUTIVE WELLNESS PROGRAMS DIRECTOR Unavailable [phone] Stephanie Mahoney RN Unavailable Unavailable Alycia Galvan RN Unavailable UnavailRan Mejía MD Primary Care Provider Cesar Tavares MD Unavailable [phone] Karie Jones RN Unavailable Unavailable Joy Bob Unavailable Fanta Addison Weinstein PharmD Unavailable Unavailab le Encounter Details Date Type Department Care Team (Late st Contact Info) Description 11/16/2020 Orders Only [facility] BMT CLINIC [address] [place] [address] Tiffanie Nguyen APRN-EXECUTIVE WELLNESS PROGRAMS DIRECTOR [address] [place] [address] Pneumonia due to COVID-19 virus ; Acute respiratory failure with hypoxia (HCC); Status post autologous bone marrow transplant (HCC) [...] st Contact Info) Description 08/26/2024 11:00 AM VBA PROGRAMMER Office Visit [facility] - Pulmonology [address] [place] [address], [place] [address] Andrew Francis MD [address] [place] [address] DIV OF PULMONARY/[place] [address] documented as of this encounter Visit Diagnoses Diagnosis Pneumonia due to COVID-19 virus- Primary Acute respiratory failure with hypoxia (HCC) Acute respiratory failure Status post autologous bone marrow transplant (HCC) Bone marrow replaced by transplant documented in this encounter Additional Health Concerns Infection Onset Date Last Indicated Resolved Time COVID-19 Under Investigation 11/16/2020 11/16/2020 11/16/2020 6:52 PM CDT COVID-19 Confirmed 11/16/2020 11/16/2020 4:35 AM CDT documented as of this encounter Care Teams Retanner Relationship Specialty Start Date End Date Ran Nuñez MD [address] [place] [address] PCP - General Family Medicine 03/22/19 12/22/20 Hillary Apple MD [address] [place] [address] Hematology and Oncology 03/17/19 Bill Ferrera MD [address] [place] [address] Hematology and Oncology 03/17/19 08/27/21 Tony Dumont MD [address] [place] [address] Hematology and Oncology 03/17/19 Maryjo Reinoso, ASP NET MVC DEVELOPER Certified Driver Examiner 03/17/19 Madyson Clay, PharmD 03/17/19 Dana Lala, OPTICAL FABRICATION TECHNICIAN-CONSTRUCTION SUPERINTENDENT [facility] [facility] 2nd [place] [address] Oncology 03/17/19 Tiffanie Nguyen, OPTICAL FABRICATION TECHNICIAN-EXECUTIVE WELLNESS PROGRAMS DIRECTOR [address] [place], [place] [address] 2nd [place] [address] Family Medicine 03/17/19 Stephanie Mahoney, RN Registered Nurse 03/17/19 10/29/21 Alycia Galvan, ROSEMARY 03/17/19 10/29/21 Cesar Tavares MD [address] [place] [address] Referring Physician Medical Oncology 03/23/19 Karie Jones, RN Registered Nurse 06/08/19 10/29/21 Joy Bob 09/22/19 Addison Shea, PharmD Pharmacist 09/22/19 10/29/21 documented as of this encounter
--- OUTSIDE RECORDS SUMMARY | 2024-08-18 00:23 | XMS_ITS | Encounter Summary ---
Author Organization [facility] Address [address] [place] [address] Care Team Providers Care Eyeglass Frames Inspector Name Role Phone Hillary Apple MD Unavailable [phone] Bill Ferrera MD Unavailable [phone] Tony Dumont MD Unavailable [phone] Maryjo Reinoso [facility] Unavailable Unavailable Madyson Clay PharmD Unavailable Unavaila Dana Galicia ASPHALT HEATER TENDER-STORAGE FACILITY HOUSEKEEPER Unavailable [phone] Tiffanie Nguyen ASPHALT HEATER TENDER-HOP TRAINER Unavailable [phone] Stephanie Mahoney RN Unavailable Unavailable Alycia Galvan RN Unavailable UnavailCesar Allen MD Unavailable [phone] Karie Jones RN Unavailable Unavailable Joy Bob Unavailable Fanta Addison Weinstein PharmD Unavailable Unavailab Alida Chang ASPHALT HEATER TENDER-HOP TRAINER Primary Care Provider Reason for Visit * Reason Onset Date Comments Cardiac Rehab 02/08/2021 Encounter Details Date Type Department Care Team (Late st Contact Info) Description 02/08/2021 Telephone [facility] - Cardiopulmonary Rehab [address] [place] [address] Dana Smith, food and beverage operations manager Social History Tobacco Use Types Packs/Day Years [...] Telephone Encounter - Dana Smith RN - 02/08/2021 12:02 PM CDT Cardiopulmonary rehab: Left message (third attempt) about making initial evaluation appointment foroutpatient exercise program; Contact number has been provided. Thank you. documented in this encounter Plan of Treatment Upcoming Encounters Date Type Department Care Team (Late st Contact Info) Description 08/26/2024 11:00 AM FAMILY LIVING EDUCATOR Office Visit [facility] - Pulmonology [address] [facility], [place] [address] Andrew Francis MD [address] [facility] 2L DIV OF PULMONARY/[place] [address] documented as of this encounter Visit Diagnoses Not on filedocumented in this encounter Care Teams Eyeglass Frames Inspector Relationship Specialty Start Date End Date Alida Marshall APRN-HOP TRAINER [address] [facility] DIV OF HEMATOLOGY & [place] [address] PCP - General Family Medicine 12/23/20 08/29/21 Hillary Apple MD [address] [place] [address] Hematology and Oncology 03/17/19 Bill Ferrera MD [address] [place] [address] Hematology and Oncology 03/17/19 08/27/21 Tony Dumont MD [address] [place] [address] Hematology and Oncology 03/17/19 Maryjo Reinoso, REAL ESTATE SALES AGENT Practice Or Student Teacher 03/17/19 Madyson Clay, PharmD 03/17/19 Dana Lala, ASPHALT HEATER TENDER-STORAGE FACILITY HOUSEKEEPER [address] [place] [address] 2nd [place] [address] Oncology 03/17/19 Tiffanie Nguyen, ASPHALT HEATER TENDER-HOP TRAINER [address] [place] [address] 2nd [place] [address] Family Medicine 03/17/19 Stephanie Mahoney, RN Registered Nurse 03/17/19 10/29/21 Alycia Galvan, ROSEMARY 03/17/19 10/29/21 Cesar Tavares MD Referring Physician Medical Oncology 03/23/19 Karie Jones, RN Registered Nurse 06/08/19 10/29/21 Joy Bob 09/22/19 Addison Shea, PharmD Pharmacist 09/22/19 10/29/21 documented as of this encounter
--- OUTSIDE RECORDS SUMMARY | 2024-08-18 00:23 | XMS_ITS | Encounter Summary ---
Author Organization [facility] Address [address] [place] [address] Care Team Providers Care Food And Beverage Order Clerk Name Role Phone Hillary Apple MD Unavailable [phone] Bill Ferrera MD Unavailable [phone] Tony Dumont MD Unavailable [phone] Maryjo Reinoso [facility] Unavailable Unavailable Madyson Clay PharmD Unavailable Unavaila Dana Galicia HAM TRIMMER-UX RESEARCHER Unavailable [phone] Tiffanie Nguyen HAM TRIMMER-CONSTRUCTION PROJECT ADMINISTRATOR Unavailable [phone] Stephanie Mahoney RN Unavailable Unavailable Alycia Galvan RN Unavailable UnavailCesar Allen MD Unavailable [phone] Karie Jones RN Unavailable Unavailable Joy Bob Unavailable Fanta Addison Weinstein PharmD Unavailable Unavailab Alida Chang HAM TRIMMER-CONSTRUCTION PROJECT ADMINISTRATOR Primary Care Provider Reason for Visit * Reason Onset Date Comments Cardiac Rehab 01/24/2021 Encounter Details Date Type Department Care Team (Late st Contact Info) Description [facility] [address] [place] [address] Dana Smith, precast molder Social History Tobacco Use Types Packs/Day Years [...] Telephone Encounter - Dana Smith RN - 01/24/2021 2:54 PM CDT Cardiopulmonary rehab: Left message about making initial evaluation appointment; Contact number hasbeen provided. Thank you. documented in this encounter Plan of Treatment Upcoming Encounters Date Type Department Care Team (Late st Contact Info) Description 08/26/2024 11:00 AM SUBEDITOR Office Visit [facility] - Pulmonology [address] [facility], [place] [address] Andrew Francis MD [address] [facility] 2L DIV OF PULMONARY/[place] [address] documented as of this encounter Visit Diagnoses Not on filedocumented in this encounter Care Teams Food And Beverage Order Clerk Relationship Specialty Start Date End Date Alida Marshall APRN-CONSTRUCTION PROJECT ADMINISTRATOR [address] [facility] DIV OF HEMATOLOGY & [place] [address] PCP - General Family Medicine 12/23/20 08/29/21 Hillary Apple MD [facility] [place] [address] Hematology and Oncology 03/17/19 Bill Ferrera MD [address] [place] [address] Hematology and Oncology 03/17/19 08/27/21 Tony Dumont MD [address] [place] [address] Hematology and Oncology 03/17/19 Maryjo Reinoso, WEIGHMASTER LEAD Pharmacy Intern 03/17/19 Madyson Clay, PharmD 03/17/19 Dana Lala, HAM TRIMMER-UX RESEARCHER [address] [place] [address] 2nd [place] [address] Oncology 03/17/19 Tiffanie Nguyen, HAM TRIMMER-CONSTRUCTION PROJECT ADMINISTRATOR [address] [place] [address] 2[place] [address] Family Medicine 03/17/19 Stephanie Mahoney, RN Registered Nurse 03/17/19 10/29/21 Alycia Galvan, RN 03/17/19 10/29/21 Cesar Tavares MD Referring Physician Medical Oncology 03/23/19 Karie Jones, RN Registered Nurse 06/08/19 10/29/21 Joy Bob 09/22/19 Addison Shea, PharmD Pharmacist 09/22/19 10/29/21 documented as of this encounter
--- OUTSIDE RECORDS SUMMARY | 2024-08-18 00:23 | XMS_ITS | Encounter Summary ---
Author Organization [facility] Address [address] [place] [address] Care Team Providers Care Disposal Plant Operator Name Role Phone Hillary Apple MD Unavailable [phone] Bill Ferrera MD Unavailable [phone] Tony Dumont MD Unavailable Maryjo Reinoso [facility] Unavailable Unavailable Madyson Clay PharmD Unavailable Unavaila Dana Galicia BELT AND LINK SHOP SUPERVISOR-FIELD PARTY MANAGER Unavailable [phone] Tiffanie Nguyen APRN-METALWORKING SPECIALIST Unavailable [phone] Stephanie Mahoney RN Unavailable Unavailable Alycia Galvan RN Unavailable UnavailCesar Allen MD Unavailable Karie Jones RN Unavailable Unavailable Joy Bob Unavailable Fanta Addison Weinstein PharmD Unavailable Unavailab Alida Chang APRN-METALWORKING SPECIALIST Primary Care Provider Ran Nuñez MD Primary Care Provider Reason for Visit * Reason Comments Refill Request Encounter Details Date Type Department Care Team (Late st Contact Info) Description 03/13/2021 Refill [facility] [address] [place] [address] Tiffanie Nguyen APRN-CNP [address] [place] [id number] Refill Request Social History Tobacco Use Types [...] COVID-19? No / Unsure 08/30/2021 10:25 AM DIETARY SERVICES MANAGER documented as of this encounter Functional [...] st Contact Info) Description 08/26/2024 11:00 AM DIETARY SERVICES MANAGER Office Visit [facility] - Pulmonology [facility] [facility], [place] [address] Andrew Francis MD [address] [place] [address] DIV OF PULMONARY/[place] [address] documented as of this encounter Visit Diagnoses Not on filedocumented in this encounter Additional Health Concerns Infection Onset Date Last Indicated Resolved Time COVID-19 Under Investigation 04/21/2021 04/21/2021 2021 6:42 AM CDT documented as of this encounter Care Teams Disposal Plant Operator Relationship Specialty Start Date End Date lAida Marshall APRN-METALWORKING SPECIALIST [address] [facility] [place] [address] PCP - General Family Medicine 12/23/20 08/29/21 Ran Nuñez MD [address] [place] [address] PCP - General Family Medicine 08/30/21 [place] [address] [place] [address] Hematology and Oncology 03/17/19 Bill Ferrera MD [address] [place] [address] Hematology and Oncology 03/17/19 08/27/21 Tony Dumont MD [address] [place] [address] Hematology and Oncology 03/17/19 Maryjo Reinoso, FOOTWEAR MACHINERY INSTRUCTOR Karate Black Belt 03/17/19 Madyson Clay, PharmD 03/17/19 Dana Lala, BELT AND LINK SHOP SUPERVISOR-FIELD PARTY MANAGER [address] [place], [place] [address]TA [facility] 2nd [place] [address] Oncology 03/17/19 Tiffanie Nguyen, BELT AND LINK SHOP SUPERVISOR-METALWORKING SPECIALIST [address] [place], [place] [address]TA [facility] 2[place] [address] Family Medicine 03/17/19 Stephanie Mahoney, RN Registered Nurse 03/17/19 10/29/21 Alycia Galvan, ROSEMARY 03/17/19 10/29/21 Cesar Tavares MD Referring Physician Medical Oncology 03/23/19 Karie Jones, RN Registered Nurse 06/08/19 10/29/21 Joy Bob 09/22/19 Addison Shea, PharmD Pharmacist 09/22/19 10/29/21 documented as of this encounter
--- OUTSIDE RECORDS SUMMARY | 2024-08-18 00:23 | XMS_ITS | Encounter Summary ---
Author Organization [facility] Address [address] [facility] [place] [place] [address] Care Team Providers Care Record Producer Name Role Phone Hillary Apple MD Unavailable [phone] Bill Ferrera MD Unavailable [phone] Tony Dumont MD Unavailable [phone] Maryjo Reinoso [facility] Unavailable Unavailable Madyson Clay PharmD Unavailable Unavaila Dana Galicia DISTRICT LEADER-AREA ATTENDANT Unavailable [phone] Tiffanie Nguyen DISTRICT LEADER-LABORER CONSTRUCTION OR LEAK GANG Unavailable [phone] Stephanie Mahoney RN Unavailable Unavailable Alycia Galvan RN Unavailable UnavailCesar Allen MD Unavailable [phone] Karei Jones RN Unavailable Unavailable oJy Bob Unavailable Fanta Addison Weinstein PharmD Unavailable Unavailab Alida Chang DISTRICT LEADER-LABORER CONSTRUCTION OR LEAK GANG Primary Care Provider Encounter Details Date Type Department Care Team (Late st Contact Info) Description 04/19/2021 Telephone [facility] [address] [place] [address] Karie Jones, RN Social History Tobacco Use Types Packs/Day [...] encounter Miscellaneous Notes * Telephone Encounter - Karie Jones RN - 04/19/2021 2:55 PM CDT Aurelio Guillen called to say that his grandchildren were recently diagnosed with bronchitis, and now he has a productive cough of green sputum. No fever, O2 sats were 86% on 5L, so he increased it to 6Land is now satting 92%. Denioes SOB. Will come tomorrow for CT scan and swab. documented in this encounter Plan of Treatment Upcoming Encounters Date Type Department Care Team (Late st Contact Info) Description 08/26/2024 11:00 AM PROFESSOR OF ENVIRONMENTAL ENGINEERING Office Visit [facility] - Pulmonology [address] [facility], [place] [address] Andrew Francis MD [address] [facility] 2L DIV OF PULMONARY/[place] [address] documented as of this encounter Visit Diagnoses Not on filedocumented in this encounter Care Teams Record Producer Relationship Specialty Start Date End Date Alida Marshall, JOSE DAVID-ERIKA [address] [facility] DIV OF HEMATOLOGY & [place] [address] PCP - General Family Medicine 12/23/20 08/29/21 Hillary Apple MD [address] [place] [address] Hematology and Oncology 03/17/19 Bill Ferrera MD [address] [place] [address] Hematology and Oncology 03/17/19 08/27/21 Tony Dumont MD [address] [place] [address] Hematology and Oncology 03/17/19 Maryjo Reinoso, [facility] Rehabilitation Inspector 03/17/19 Madyson Clay, PharmD 03/17/19 Dana Lala, DISTRICT LEADER-AREA ATTENDANT [address] [place] [address] [place] [address] Oncology 03/17/19 Tiffanie Nguyen, DISTRICT LEADER-LABORER CONSTRUCTION OR LEAK GANG [address] [place] [address] 2nd [place] [address] Family Medicine 03/17/19 Stephanie Mahoney, RN Registered Nurse 03/17/19 10/29/21 Alycia Galvan, ROSEMARY 03/17/19 10/29/21 Cesar Tavares MD Referring Physician Medical Oncology 03/23/19 Karie Jones, RN Registered Nurse 06/08/19 10/29/21 Joy Bob 09/22/19 Addison Shea, PharmD Pharmacist 09/22/19 10/29/21 documented as of this encounter
--- OUTSIDE RECORDS SUMMARY | 2024-08-18 00:23 | XMS_ITS | Encounter Summary ---
Author Organization [facility] Address [address] [facility] [place] [address] Care Team Providers Care Senior Online Marketing Manager Name Role Phone Hillary Apple MD Unavailable [phone] Bill Ferrera MD Unavailable [phone] Tony Dumont MD Unavailable [phone] [facility] Unavailable Unavailable Madyson Clay PharmD Unavailable Unavaila Dana Galicia ORTHO RN-GEOGRAPHICAL HISTORIAN Unavailable [phone] Tiffanie Nguyen ORTHO RN-AIDS NURSE Unavailable [phone] Stephanie Mahoney RN Unavailable Unavailable Alycia Galvan RN Unavailable UnavailCesar Allen MD Unavailable [phone] Karie Jones RN Unavailable Unavailable Joy Bob Unavailable Fanta Addison Weinstein PharmD Unavailable Unavailab Alida Chang ORTHO RN-AIDS NURSE Primary Care Provider Ran Nuñez MD Primary Care Provider Reason for Visit * Reason Comments Refill Request Encounter Details Date Type Department Care Team (Late st Contact Info) Description 03/09/2021 Refill [facility] B[facility] CLINIC [address] [place] [address] Hillary Apple MD [address] [facility] [place] [address] Refill Request Social History Tobacco [...] COVID-19? No / Unsure 08/30/2021 10:[address] MACHINERY INSPECTOR documented as of this encounter Functional Status [...] st Contact Info) Description 08/26/2024 11:[address] MACHINERY INSPECTOR Office Visit [facility] - Pulmonology [address] [place] [address], [place] [address] Andrew Francis MD [address] [place] [address] 2L DIV OF PULMONARY/[place] [address] documented as of this encounter Visit Diagnoses Not on filedocumented in this encounter Additional Health Concerns Infection Onset Date Last Indicated Resolved Time COVID-19 Under Investigation 04/21/2021 04/21/2021 2021 6:42 AM CDT documented as of this encounter Care Teams Senior Online Marketing Manager Relationship Specialty Start Date End Date Alida Marshall APRN-AIDS NURSE [address] [facility] [place] [address] PCP - General Family Medicine 12/23/20 08/29/21 Ran Nuñez MD [address] [place] [address] PCP - General Family Medicine 08/30/21 Hillary Apple MD [address] [place] [address] Hematology and Oncology 03/17/19 Bill Ferrera MD [address] [place] [address] Hematology and Oncology 03/17/19 08/27/21 Tony Dumont MD [address] [place] [address] Hematology and Oncology 03/17/19 Maryjo Reinoso, COMBER SETTER Machine Shop Worker 03/17/19 Madyson Clay, PharmD 03/17/19 Dana Lala ORTHO RN-GEOGRAPHICAL HISTORIAN [address] [place], [place] [address]TA [facility] 2nd FLOOR [place] [address] Oncology 03/17/19 Tiffanie Nguyen ORTHO RN-AIDS NURSE [address] [place], [place] [address]TA [facility] 2nd FLOOR [place] [address] Family Medicine 03/17/19 Stephanie Mahoney, RN Registered Nurse 03/17/19 10/29/21 Alycia Galvan, ROSEMARY 03/17/19 10/29/21 Cesar Tavares MD Referring Physician Medical Oncology 03/23/19 Karie Jones, RN Registered Nurse 06/08/19 10/29/21 Joy Bob 09/22/19 Addison Shea, PharmD Pharmacist 09/22/19 10/29/21 documented as of this encounter
--- OUTSIDE RECORDS SUMMARY | 2024-08-18 00:23 | XMS_ITS | Encounter Summary ---
Author Organization [facility] Address [address] [facility] [place] [address] Care Team Providers Care Executive Director Of Nursing Name Role Phone Hillary Apple MD Unavailable [phone] Bill Ferrera MD Unavailable [phone] Tony Dumont MD Unavailable [phone] Maryjo Reinoso [facility] Unavailable Unavailable Madyson Clay PharmD Unavailable Unavaila Dana Galicia FRAME TENDER-PROCUREMENT TECHNICIAN Unavailable [phone] Tiffanie Nguyen FRAME TENDER-KILN TENDER Unavailable [phone] Stephanie Mahoney RN Unavailable Unavailable Alycia Galvan RN Unavailable UnavailCesar Allen MD Unavailable [phone] Karie Jones RN Unavailable Unavailable Joy Bob Unavailable Fanta Addison Weinstein PharmD Unavailable Unavailab Alida Chang FRAME TENDER-KILN TENDER Primary Care Provider Encounter Details Date Type Department Care Team (Latest Contact Info) Description 02/15/2021 Travel Social History Tobacco Use Types Packs/Day [...] st Contact Info) Description 08/26/2024 11:00 AM ANNUAL CAMPAIGN MANAGER Office Visit [facility] - Pulmonology [address] [facility], [place] [address] Andrew Frnacis MD [address] [facility] 2L DIV OF PULMONARY/[place] [address] documented as of this encounter Visit Diagnoses Not on filedocumented in this encounter Care Teams Executive Director Of Nursing Relationship Specialty Start Date End Date Alida Marshall, FRAME TENDER-KILN TENDER [address] [facility] DIV OF HEMATOLOGY & [place] [address] PCP - General Family Medicine 12/23/20 08/29/21 Hillary Apple MD [facility]5 [place] [address] Hematology and Oncology 03/17/19 Bill Ferrera MD [address] [place] [address] Hematology and Oncology 03/17/19 08/27/21 Tony Dumont MD [address] [place] [address] Hematology and Oncology 03/17/19 Maryjo Reinoso, HOUSING OFFICER Bistro Server 03/17/19 Madyson Clay, PharmD 03/17/19 Dana Lala, FRAME TENDER-PROCUREMENT TECHNICIAN [address] [facility] [address] [address] Oncology 03/17/19 Tiffanie Nguyen, FRAME TENDER-KILN TENDER [address] [facility] [place] [address] Family Medicine 03/17/19 Stephanie Mahoney, RN Registered Nurse 03/17/19 10/29/21 Alycia Galvan, RN 03/17/19 10/29/21 Cesar Tavares MD Referring Physician Medical Oncology 03/23/19 Karie Jones, RN Registered Nurse 06/08/19 10/29/21 Joy Bob 09/22/19 Addison Shea, PharmD Pharmacist 09/22/19 10/29/21 documented as of this encounter
--- OUTSIDE RECORDS SUMMARY | 2024-08-18 00:23 | XMS_ITS | Encounter Summary ---
Author Organization [facility] Address [address] [place] [address] Care Team Providers Care Asw Specialist Name Role Phone Hillary Apple MD Unavailable [phone] Bill Ferrera MD Unavailable [phone] Tony Dumont MD Unavailable [phone] [facility] Unavailable Unavailable Madyson Clay PharmD Unavailable Unavaila Dana Galicia BRAZER RESISTANCE-TAX FORM PREPARER Unavailable [phone] Tiffanie Nguyen APRN-NON DESTRUCTIVE EVALUATION MANAGER Unavailable [phone] Stephanie Mahoney RN Unavailable Unavailable Alycia Galvan RN Unavailable UnavailRan Mejía MD Primary Care Provider Cesar Tavares MD Unavailable [phone] Karie Jones RN Unavailable Unavailable Joy Bob Unavailable Fanta Addison Weinstein PharmD Unavailable Unavailab le Encounter Details Date Type Department Care Team (Late st Contact Info) Description 11/17/2020 Telephone [facility] B[facility] CLINIC [address] [place] [address] Tiffanie Nguyen APRN-NON DESTRUCTIVE EVALUATION MANAGER [address] [place] [address] Social History Tobacco Use Types Packs/Day Years [...] Telephone Encounter - Tiffanie Nguyen APRN-CNP - 11/17/2020 1:54 PM CDT Called Aurelio to f/u from yesterday. He got Covid vaccine yesterday, had fever last night that resolved with Tylenol, and this morning had some nausea and he had to take Compazine. No further fevers, mild chills but no shaking chills. Is feeling much better today. Will plan to see Aurelio in 6 weeks, will try to coordinate visit on Friday (unable to do Mondays) to see Dr. Apple. Will also try to set up over night pulse ox study and cardiopulmonary rehab. Aurelio will call with worsened symptoms, but hopefully inflammation from Covid vaccine will improve the further he gets out from the vaccine. Tiffanie Nguyen, MISSY- [facility] documented in this encounter Plan of Treatment Upcoming Encounters Date Type Department Care Team (Late st Contact Info) Description 08/26/2024 11:00 AM CARBON CAPTURE POWER PLANT ENGINEER Office Visit [facility] - Pulmonology [address] [facility], [place] [address] Andrew Francis MD [facility]5 [facility] 2L DIV OF PULMONARY/[place] [address] documented as of this encounter Visit Diagnoses Not on filedocumented in this encounter Additional Health Concerns Infection Onset Date Last Indicated Resolved Time COVID-19 Confirmed 11/16/2020 11/16/2020 4:35 AM CDT documented as of this encounter Care Teams Asw Specialist Relationship Specialty Start Date End Date Ran Nuñez MD [address] [place] [address] PCP - General Family Medicine 03/22/19 12/22/20 Hillary Apple MD [address] [place] [address] Hematology and Oncology 03/17/19 Bill Ferrera MD [address] [place] [address] Hematology and Oncology 03/17/19 08/27/21 Tony Dumont MD [address] [place] [address] Hematology and Oncology 03/17/19 Maryjo Reinoso, INDUSTRIAL REGISTERED NURSE Lap Winding Machine Operator 03/17/19 Madyson Clay, PharmD 03/17/19 Dana Lala APRN-TAX FORM PREPARER [address] [place] [address] 2nd [place] [address] Oncology 03/17/19 Tiffanie Nguyen, JOSE DAVID-NON DESTRUCTIVE EVALUATION MANAGER [address] 2nd [place] [address] Family Medicine 03/17/19 Stephanie Mahoney, RN Registered Nurse 03/17/19 10/29/21 Alycia Galvan, RN 03/17/19 10/29/21 Cesar Tavares MD [address] [place] [address] [place] [address] Referring Physician Medical Oncology 03/23/19 Karie Jones, RN Registered Nurse 06/08/19 10/29/21 Joy Bob 09/22/19 Addison Seha, PharmD Pharmacist 09/22/19 10/29/21 documented as of this encounter
--- OUTSIDE RECORDS SUMMARY | 2024-08-18 00:23 | XMS_ITS | Encounter Summary ---
Author Organization [facility] Address [address] [facility] [address] Care Team Providers Care Rf Design Engineer Name Role Phone Hillary Epperson MD Unavailable [phone] Bill Ferrera MD Unavailable [phone] Tony Dumont MD Unavailable [phone] Maryjo Reinoso [facility] Unavailable Unavailable Madyson Clay PharmD Unavailable Unavaila Dana Galicia ENGINEER DESIGN AND CONSTRUCTION-LINE CREWMAN Unavailable [phone] Tiffanie Nguyen ENGINEER DESIGN AND CONSTRUCTION-DEPUTY SHERIFF GENERALIST Unavailable [phone] Stephanie Mahoney RN Unavailable Unavailable Alycia Galvan RN Unavailable UnavailCesar Allen MD Unavailable [phone] Karie Jones RN Unavailable Unavailable Joy Bob Unavailable Fanta Addison Weinstein PharmD Unavailable Unavailab Alida Chang ENGINEER DESIGN AND CONSTRUCTION-DEPUTY SHERIFF GENERALIST Primary Care Provider Encounter Details Date Type Department Care Team (Late st Contact Info) Description 03/13/2021 Telephone [facility] BMT CLINIC [address] [place] [address] Karie Jones, RN Social History [...] Telephone Encounter - Karie Jones RN - 03/13/2021 10:35 AM CDT Pt called to say that his daughters boyfriend had tested positive for Covid over the weekend, but had recently broke his leg, and was staying in bed. But Aurelio did take off his mask and kiss his granddaughter. (He was not aware that the boyfriend had Covid at the time.) He is worried that he might get Covid again. I told him that he did not have any direct exposure to the boyfriend, so his exposure was very minimal. He wants to be swabbed when he comes in for his next visit 03/26. Will discuss with Dr. epperson documented in this encounter Plan of Treatment Upcoming Encounters Date Type Department Care Team (Late st Contact Info) Description 08/26/2024 11:00 AM DRUM PRINTER Office Visit [facility] - Pulmonology [facility]5 [facility], [facility] [place] [address] Andrew Francis MD [address] 2L DIV OF PULMONARY/[place] [address] documented as of this encounter Visit Diagnoses Not on filedocumented in this encounter Care Teams Rf Design Engineer Relationship Specialty Start Date End Date Joanna Alida, ENGINEER DESIGN AND CONSTRUCTION-DEPUTY SHERIFF GENERALIST [address] DIV OF HEMATOLOGY & [place] [address] PCP - General Family Medicine 12/23/20 08/29/21 Hillary Epperson MD [address] [place] [address] Hematology and Oncology 03/17/19 Bill Ferrera MD [address] [place] [address] Hematology and Oncology 03/17/19 08/27/21 Tony Dumont MD [address] [place] [address] Hematology and Oncology 03/17/19 Maryjo Reinoso, LEAD MACHINIST Mgmt Consultant 03/17/19 Madyson Clay, PharmD 03/17/19 Dana Lala ENGINEER DESIGN AND CONSTRUCTION-LINE CREWMAN [address] [place], [place] [address]TA [facility] 2nd [place] [address] Oncology 03/17/19 Tiffanie Nguyen ENGINEER DESIGN AND CONSTRUCTION-DEPUTY SHERIFF GENERALIST [address] [place] [address] 2nd [place] [address] Family Medicine 03/17/19 Stephanie Mahoney, RN Registered Nurse 03/17/19 10/29/21 Alycia Galvan, ROSEMARY 03/17/19 10/29/21 Cesar Tavares MD Referring Physician Medical Oncology 03/23/19 Karie Jones, RN Registered Nurse 06/08/19 10/29/21 Joy Bob 09/22/19 Addison Shea, PharmD Pharmacist 09/22/19 10/29/21 documented as of this encounter
--- OUTSIDE RECORDS SUMMARY | 2024-08-18 00:23 | XMS_ITS | Encounter Summary ---
Author Organization [facility] Address [address] [facility] [place] [address] Care Team Providers Care Sourcing Specialist Name Role Phone Hillary Apple MD Unavailable [phone] Bill Ferrera MD Unavailable [phone] Tony Dumont MD Unavailable Maryjo Reinoso [facility] Unavailable Unavailable Madyson Clay PharmD Unavailable Unavaila Dana Galicia SET UP AND CHARGER-CONCRETE POLISHER Unavailable [phone] Tiffanie Nguyen SET UP AND CHARGER-DATA CLERK Unavailable [phone] Stephanie Mahoney RN Unavailable Unavailable Alycia Galvan RN Unavailable UnavailCesar Allen MD Unavailable [phone] Karie Jones RN Unavailable Unavailable Joy Bob Unavailable Fanta Addison Weinstein PharmD Unavailable Unavailab Alida Chang SET UP AND CHARGER-DATA CLERK Primary Care Provider Reason for Referral * Procedure (Routine) - Closed Specialty Diagnoses / Procedures Referred By Contac t Referred To Contact Pulmonary Disease Diagnoses Pneumonia due to COVID-19 virus Status post autologous bone marrow transplant (HCC) Procedures COMPLETE PFT Hillary Apple MD [address] [facility] OF [facility]EMAT[facility] & [place] [address] Slh Pulmonary Cl [address] [place] [address] Referral ID Status Reason Start Date Expiration Date Visits Re quested Visits Authorized [id number] Closed 02/15/2021 02/15/2022 1 1 Encounter Details Date Type Department Care Team (Late Contact Info) Description 02/15/2021 Orders Only [facility] BMT CLINIC [address] [place] [address] Tiffanie Nguyen, SET UP AND CHARGER-DATA CLERK [address] [place] [address] Pneumonia due to COVID-19 virus ; Status post autologous bone marrow transplant [...] (Late Contact Info) Description 08/26/2024 11:00 AM CLIN NURSE Office Visit [facility] - Pulmonology [address] [facility], [place] [address] Andrew Francis MD [facility] OF PULMONARY/[place] [address] documented as of this encounter Results * COMPLETE PFT (11/13/2021 1:26 PM CDT) Impressions Apolinar Ramos MD - 11/13/2021 1:26 PM CDT [facility] DEPARTMENT OF PULMONARY, CRITICAL CARE, AND [...] of Pulmonary, Critical Care, & Sleep Medicine [facility] I have personally reviewed the pulmonary function test data and made adjustment to the interpretation where necessary. Apolinar Ramos MD 11/21/2021 Narrative Apolinar Ramos MD - 11/13/2021 1:26 PM CDT Christina Forrest MD ? 11/18/2021 ??4:49 PM Sagun D Zechariah MD RESPIRATORY THERAPY ORDERABLES documented in this encounter Visit Diagnoses Diagnosis Pneumonia due to COVID-19 virus- Primary Status post autologous bone marrow transplant (HCC) Bone marrow replaced by transplant Pneumonia due to COVID-19 virus Status post autologous bone marrow transplant (HCC) Bone marrow replaced by transplant Chronic respiratory failure with hypoxia (HCC) Chronic respiratory failure documented in this encounter Care Teams Sourcing Specialist Relationship Specialty Start Date End Date Alida Marshall APRN-DATA CLERK [address] [facility] [place] [address] PCP - General Family Medicine 12/23/20 08/29/21 Hillary Apple MD [address] [place] [address] Hematology and Oncology 03/17/19 Bill Ferrera MD [address] [place] [address] Hematology and Oncology 03/17/19 08/27/21 Tony Dumont MD [address] [place] [address] Hematology and Oncology 03/17/19 Maryjo Reinoso, NET DEVELOPER PROGRAMMER Store Person 03/17/19 Madyson Clay, PharmD 03/17/19 Dana Lala APRN-CONCRETE POLISHER [address] [place] [address] 2nd [place] [address] Oncology 03/17/19 Tiffanie Nguyen APRN-DATA CLERK [address] [place] [address] 2nd [place] [address] Family Medicine 03/17/19 Stephanie Mahoney, RN Registered Nurse 03/17/19 10/29/21 Alycia Galvan, ROSEMARY 03/17/19 10/29/21 Cesar Tavares MD Referring Physician Medical Oncology 03/23/19 Karie Jones, RN Registered Nurse 06/08/19 10/29/21 Joy Bob 09/22/19 Addison Shea, PharmD Pharmacist 09/22/19 10/29/21 documented as of this encounter
--- OUTSIDE RECORDS SUMMARY | 2024-08-18 00:23 | XMS_ITS | Encounter Summary ---
Author Organization [facility] Address [address] [facility] [place] [address] Care Team Providers Care Pamphlet Distributor Name Role Phone Hillary Apple MD Unavailable [phone] Bill Ferrera MD Unavailable [phone] Tony Dumont MD Unavailable [phone] Maryjo ReinosoW Unavailable Unavailable Madyson Clay PharmD Unavailable Unavaila Dana Galicia BACKEND TESTER-MANAGER PATHOLOGY Unavailable [phone] Tiffanie Nguyen BACKEND TESTER-ABRASIVE WHEEL MOLDER Unavailable Stephanie Mahoney RN Unavailable Unavailable Alycia Galvan RN Unavailable UnavailRan Mejía MD Primary Care Provider Cesar Tavares MD Unavailable [phone] Karie Jones RN Unavailable Unavailable Joy Bob Unavailable Fanta Addison Weinstein PharmD Unavailable Unavailab le Encounter Details Date Type Department Care Team (Latest Contact Info) Description 12/20/2020 Travel Social History Tobacco Use Types Packs/Day [...] st Contact Info) Description 08/26/2024 11:00 AM SUPERVISOR HOT DIP TINNING Office Visit [facility] - Pulmonology [address] [place] [address], [place] [address] Andrew Francis MD [address] [place] [address] 2L DIV OF PULMONARY/[place] [address] documented as of this encounter Visit Diagnoses Not on filedocumented in this encounter Additional Health Concerns Infection Onset Date Last Indicated Resolved Time COVID-19 Under Investigation 12/20/2020 12/20/2020 12/20/2020 6:23 PM CDT documented as of this encounter Care Teams Pamphlet Distributor Relationship Specialty Start Date End Date Ran Nuñez MD [address] [place] [address] PCP - General Family Medicine 03/22/19 12/22/20 Hillary Apple MD [address] [place] [address] Hematology and Oncology 03/17/19 Bill Ferrera MD [address] [place] [address] Hematology and Oncology 03/17/19 08/27/21 Tony Dumont MD [address] [place] [address] Hematology and Oncology 03/17/19 Maryjo Reinoso, WILLOW MACHINE TENDER Garden Worker 03/17/19 Madyson Clay, PharmD 03/17/19 Dana Lala, BACKEND TESTER-MANAGER PATHOLOGY [address] [facility] 2nd [place] [address] Oncology 03/17/19 Tiffanie Nguyen, BACKEND TESTER-ABRASIVE WHEEL MOLDER [address] [place] [address] Family Medicine 03/17/19 Stephanie Mahoney, RN Registered Nurse 03/17/19 10/29/21 Alycia Galvan, ROSEMARY 03/17/19 10/29/21 Cesar Tavares MD [address] [place] [address] [place] [address] Referring Physician Medical Oncology 03/23/19 Karie Jones, RN Registered Nurse 06/08/19 10/29/21 Joy Bob 09/22/19 Addison Shea, PharmD Pharmacist 09/22/19 10/29/21 documented as of this encounter
--- OUTSIDE RECORDS SUMMARY | 2024-08-18 00:23 | XMS_ITS | Encounter Summary ---
Author Organization [facility] Address [address] [facility] [place] [address] Care Team Providers Care Attending Psychiatrist Name Role Phone Hillary Apple MD Unavailable [phone] Bill Ferrera MD Unavailable [phone] Tony Dumont MD Unavailable [phone] Maryjo Reinoso [facility] Unavailable Unavailable Madyson Clay PharmD Unavailable Unavaila Dana Galicia FINANCE ANALYST-CLIENT SERVICES ADMINISTRATOR Unavailable [phone] Tiffanie Nguyen FINANCE ANALYST-TEXTILES SALES REPRESENTATIVE Unavailable [phone] Stephanie Mahoney RN Unavailable Unavailable Alycia Galvan RN Unavailable UnavailRan Mejía MD Primary Care Provider Cesar Tavares MD Unavailable [phone] Karie Jones RN Unavailable Unavailable Joy Bob Unavailable Fanta Addison Weinstein PharmD Unavailable Unavailab campbell Reason for Visit * Reason Onset Date Comments MEDICATION REFILL 12/04/2020 Encounter Details Date Type Department Care Team (Late st Contact Info) Description 12/04/2020 Refill [facility] BMT CLINIC [address] [place] [address] Hillary Apple MD [address] [facility] OF HEMATOLOGY & [place] [address] MEDICATION REFILL Social History Tobacco [...] st Contact Info) Description 08/26/2024 11:00 AM PLATEMAKER Office Visit [facility] - Pulmonology [address] [place] [address], [place] [address] Andrew Francis MD [address] [place] [address] 2[address] DIV OF PULMONARY/[place] [address] documented as of this encounter Visit Diagnoses Not on filedocumented in this encounter Care Teams Attending Psychiatrist Relationship Specialty Start Date End Date Ran Nuñez MD [address] [place] [address] PCP - General Family Medicine 03/22/19 12/22/20 Hillary Apple MD [address] [place] [address] Hematology and Oncology 03/17/19 Bill Ferrera MD [address] [place] [address] Hematology and Oncology 03/17/19 08/27/21 Tony Dumont MD [address] [place] [address] Hematology and Oncology 03/17/19 Maryjo Reinoso, PUBLIC HEALTH WORKER Photography Spotter 03/17/19 Madyson Clay, PharmD 03/17/19 Dana Lala, FINANCE ANALYST-CLIENT SERVICES ADMINISTRATOR [address] [place] [address] 2nd [place] [address] Oncology 03/17/19 Tiffanie Nguyen, FINANCE ANALYST-TEXTILES SALES REPRESENTATIVE [address] [place] [address] 2nd [place] [address] Family Medicine 03/17/19 Stephanie Mahoney, RN Registered Nurse 03/17/19 10/29/21 Alycia Galvan, ROSEMARY 03/17/19 10/29/21 Cesar Tavares MD [address] [place] [address] [place] [address] Referring Physician Medical Oncology 03/23/19 Karie Jones, RN Registered Nurse 06/08/19 10/29/21 Joy Bob 09/22/19 Addison Shea, PharmD Pharmacist 09/22/19 10/29/21 documented as of this encounter
--- OUTSIDE RECORDS SUMMARY | 2024-08-18 00:23 | XMS_ITS | Encounter Summary ---
Author Organization [facility] Address [address] [place] [address] Care Team Providers Care Hadoop Software Engineer Name Role Phone Hillary Apple MD Unavailable [phone] Bill Ferrera MD Unavailable [phone] Tony Dumont MD Unavailable [phone] Maryjo Reinoso [facility] Unavailable Unavailable Madyson Clay PharmD Unavailable Unavaila Dana Galicia STEEL RULE INSPECTOR-LIVING MANAGER Unavailable [phone] Tiffanie Nguyen STEEL RULE INSPECTOR-PATIENT COORDINATOR Unavailable [phone] Stephanie Mahoney RN Unavailable Unavailable Alycia Galvan RN Unavailable UnavailRan Mejía MD Primary Care Provider Cesar Tavares MD Unavailable [phone] Karie Jones RN Unavailable Unavailable Joy Bob Unavailable Fanta Addison Weinstein PharmD Unavailable Unavailab le Encounter Details Date Type Department Care Team (Late st Contact Info) Description 12/07/2020 11:30 AM CDT Immunization [facility] COVID Vaccine [address] [place] [address] Alonso Matthews MD Need for vaccination Social History Tobacco Use Types Packs/Day Years [...] st Contact Info) Description 08/26/2024 11:00 AM EDUCATION PROGRAM SPECIALIST Office Visit [facility] - Pulmonology [address] [place] [address], [facility] [address] Andrew Francis MD [address] [place] [address] 2L DIV OF PULMONARY/[place] [address] documented as of this encounter Visit Diagnoses Diagnosis Need for vaccination- Primary Need for prophylactic vaccination and inoculation against unspecified single disease documented in this encounter Care Teams Hadoop Software Engineer Relationship Specialty Start Date End Date Ran Nuñez MD [address] [place] [address] PCP - General Family Medicine 03/22/19 12/22/20 Hillary Apple MD [address] [place] [address] Hematology and Oncology 03/17/19 Bill Ferrera MD [address] [place] [address] Hematology and Oncology 03/17/19 08/27/21 Tony Dumont MD [address] [place] [address] Hematology and Oncology 03/17/19 Maryjo Reinoso, ENTRY LEVEL CHEMIST Rug Cutter Helper 03/17/19 Madyson Clay, PharmD 03/17/19 Dana Lala, STEEL RULE INSPECTOR-LIVING MANAGER [facility]5 [facility] [place] [address] Oncology 03/17/19 Tiffanie Nguyen, STEEL RULE INSPECTOR-PATIENT COORDINATOR [address] [place] [address] 2nd [place] [address] Family Medicine 03/17/19 Stephanie Mahoney, RN Registered Nurse 03/17/19 10/29/21 Alycia Galvan, ROSEMARY 03/17/19 10/29/21 Cesar Tavares MD [address] [place] [address] [place] [address] Referring Physician Medical Oncology 03/23/19 Karie Jones, RN Registered Nurse 06/08/19 10/29/21 Joy Bob 09/22/19 Addison Shea, PharmD Pharmacist 09/22/19 10/29/21 documented as of this encounter
--- OUTSIDE RECORDS SUMMARY | 2024-08-18 00:23 | XMS_ITS | Encounter Summary ---
Author Organization [facility] Address [address] [facility] [place] [address] Care Team Providers Care Furnace Filler Name Role Phone Hillary Apple MD Unavailable [phone] Bill Ferrera MD Unavailable [phone] Tony Dumont MD Unavailable [phone] Maryjo Reinoso [facility] Unavailable Unavailable Madyson Clay PharmD Unavailable Unavaila Dana Galicia CHURN DRILLER-INSOLE REINFORCER Unavailable [phone] Tiffanie Nguyen APRN-ULTRA SOUND TECHNICIAN Unavailable [phone] Stephanie Mahoney RN Unavailable Unavailable Alycia Galvan RN Unavailable UnavailRan Mejía MD Primary Care Provider Cesar Tavares MD Unavailable [phone] Karie Jones RN Unavailable Unavailable Joy Bob Unavailable Fanta Addison Weinstein PharmD Unavailable Unavailab le Reason for Visit * Reason Comments Refill Request Encounter Details Date Type Department Care Team (Late st Contact Info) Description 11/28/2020 Refill [facility] BMT CLINIC [address] [place] [address] Tiffanie Nguyen APRN-ULTRA SOUND TECHNICIAN [address] [place] [address] Refill Request Social History Tobacco Use Types [...] st Contact Info) Description 08/26/2024 11:00 AM VALIDATION MANAGER Office Visit [facility] - Pulmonology [address] [place] [address], [place] [address] Andrew Francis MD [address] [place] [address] 2L DIV OF PULMONARY/[place] [address] documented as of this encounter Visit Diagnoses Diagnosis 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 documented in this encounter Care Teams Furnace Filler Relationship Specialty Start Date End Date Ran Nuñez MD [address] [place] [address] PCP - General Family Medicine 03/22/19 12/22/20 Hillary Apple MD [address] [place] [address] Hematology and Oncology 03/17/19 Bill Ferrera MD [address] [place] [address] Hematology and Oncology 03/17/19 08/27/21 Tony Dumont MD [address] [place] [address] Hematology and Oncology 03/17/19 Maryjo Reinoso, SOLID WASTE MANAGEMENT ENGINEER National Sales Executive 03/17/19 Madyson Clay, PharmD 03/17/19 Dana Lala, CHURN DRILLER-INSOLE REINFORCER [address] [place] [address] 2nd [place] [address] Oncology 03/17/19 Tiffanie Nguyen, CHURN DRILLER-ULTRA SOUND TECHNICIAN [address] [place] [address] 2nd [place] [address] Family Medicine 03/17/19 Stephanie Mahoney, RN Registered Nurse 03/17/19 10/29/21 Alycia Galvan, ROSEMARY 03/17/19 10/29/21 Cesar Tavares MD [address] [place] [address] [place] [address] Referring Physician Medical Oncology 03/23/19 Karie Jones, RN Registered Nurse 06/08/19 10/29/21 Joy Bob 09/22/19 Addison Shea, PharmD Pharmacist 09/22/19 10/29/21 documented as of this encounter
--- OUTSIDE RECORDS SUMMARY | 2024-08-18 00:23 | XMS_ITS | Encounter Summary ---
Author Organization [facility] Address [address] [place] [address] Care Team Providers Care Employee Welfare Manager Name Role Phone Hillary Apple MD Unavailable [phone] Bill Ferrera MD Unavailable [phone] Tony Dumont MD Unavailable [phone] Maryjo Reinoso VEHICLE ASSEMBLER Unavailable Unavailable Madyson Clay PharmD Unavailable Unavaila Dana Galicia RETAIL GREETING CARD MERCHANDISER-PANELBOARD OPERATOR Unavailable [phone] Tiffanie Nguyen APRN-LOCATION MAN Unavailable [phone] Stephanie Mahoney RN Unavailable Unavailable Alycia Galvan RN Unavailable UnavailRan Mejía MD Primary Care Provider Cesar Tavares MD Unavailable [phone] Karie Jones RN Unavailable Unavailable Joy Bob Unavailable Fanta Addison Weinstein PharmD Unavailable Unavailab le Reason for Visit * Oncology Prior Authorization (Routine) - Closed Specialty Diagnoses / Procedures Referred By Contac t Referred To Contact Diagnoses B-cell lymphoma, unspecified B-cell lymphoma type, unspecified body region (HCC) S/P splenectomy Acute respiratory failure with hypoxia (HCC) Pneumonia due to COVID-19 virus Procedures WI INJ IG GAMUNEX IV NONLYO 500 MG Tiffanie Nguyen APRN-LOCATION MAN [address] [place] [address] [facility] [address] [place] [address] Referral ID Status Reason Start Date Expiration Date Visits Re quested Visits Authorized [id number] Closed 04/24/2020 04/24/2021 1 1 Encounter Details Date Type Department Care Team (Latest Contact Info) Description 12/20/2020 10:00 AM CDT - 12/20/2020 11:59 PM CDT Hospital Encounter [facility] [address] [place] [address] Tiffanie Nguyen, RETAIL GREETING CARD MERCHANDISER-LOCATION MAN [address] [place] [address] Discharge Disposition: Home or Self [...] Sign Reading Time Taken Comments Blood Pressure 117/89 12/20/2020 11:41 AM CDT Pulse 75 12/20/2020 11:41 AM CDT Temperature 37.1 ??C (98.7 ??F) 12/20/2020 11:41 AM C DT Respiratory Rate 16 12/20/2020 11:41 AM CDT Oxygen Saturation 99% 12/20/2020 11:41 AM CDT Inhaled Oxygen Concentration - - Weight 141.2 kg (311 lb 5 oz) 12/20/2020 10:13 A M CDT Height - - Body Mass Index 48.75 02/28/2020 7:12 AM CDT documented in this [...] for Pain 60 tablet 12/04/2020 03/09/2021 penicillin v potassium (VEETIDS) 250 MG tabletIndications:Di [...] (OCEAN; BABY AYR) 0.65 % nasal spray [place] 2 sprays into each nostril every 2 [...] of this encounter Progress Notes * Tiffanie Nguyen APRN-ERIKA - 12/20/2020 11:59 PM CDT Documentation Only Note Aurelio Luis has been evaluated by our international trade specialist and had an ECHO 11/16/20: ECHO 11/16/20: Technically difficult/suboptimal echocardiogram. The left ventricle is [...] shunt by bubble study or Doppler interrogation. He is needing cardiopulmonary rehab to improve performance status after his prolonged Covid infection. Based on his ECHO report and medical history, we have no cardiac concerns and do not need him tosee vacuum cleaner repair person at this time. We will continue to follow him closely along with international trade specialist Dr. Francis. A/P 1. Covid Infection - start cardiopulmonary rehab as requested by Dr. 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 INTERVAL HISTORY: Aurelio states he's been feeling better lately Breathing starting to improve, having more stamina every day Still wheezing daily. Using inhalers with relief Doing steps better. Doing steps at home 4+ times day 6L during the day No O2 when sitting or sleeping Not wearing Cpap at night. Needs new mask and updated settings Finally having a productive cough. Not daily, only in the AM for last few weeks Yellow green color when having sputum HAs still frequently. Improved with tylenol and oxy Has dropped O2 sats into 50 in this past month Light headed when getting up or moving too fast Denies chest pain Nausea after covid vaccine but otherwise fine No temps otherwise Stable bowel and bladder Eating and drinking okay ROS: A comprehensive review of systems was [...] (OCEAN; BABY AYR) 0.65 % nasal spray [place] 2 sprays into each nostril every 2 [...] immune globulin (GAMUNEX-C) 10 % 40 g ??? prochlorperazine (Compazine) injection 10 mg VITALS: Vitals: 12/20/20 1013 12/20/20 1107 BP: 124/78 121/81 Pulse: 86 74 Resp: 18 18 Temp: 98.5 ??F 98.6 ??F SpO2: 98% 97% Weight: (!) 141.2 kg (311 lb 5 oz) Wt Readings from Last 3 Encounters: 12/20/20 (!) 141.2 kg (311 lb 5 oz) 11/16/20 (!) 140.2 kg (309 lb) 06/16/20 128.4 kg (283 lb 0.3 oz) PHYSICAL EXAM: Karnofsky/ECO/2 General appearance - alert, in no distress, and acyanotic in no respiratory distress Mental status - alert, oriented to person, place, and time, normal mood, behavior, speech, dress, motor activity, and thought processes, affect appropriate to mood Mouth - mucous membranes moist, pharynx normal without lesions Chest - clear to auscultation, slightly diminished, no wheezes, rales or rhonchi, symmetric air entry, no tachypnea, retractions or cyanosis Heart - normal rate and regular rhythm, no murmurs noted Abdomen - soft, nontender, nondistended, no masses or organomegaly, bowel sounds normal Extremities - peripheral pulses normal, no pedal edema, no clubbing or cyanosis Skin - normal coloration and turgor, no rashes, no suspicious skin lesions noted, healing but slightly darkened area noted above lips and nares LABS: Recent Labs Component Name 12/20/20 1035 11/16/20 1120 09/28/20 1438 08/31/20 1335 WBC 12.5* 11.7* 10.2 13.4* RBC 4.28* 4.31 4.59 4.55 HGB 12.8 12.7* 12.3* 10.9* HCT 37.5 37.4* 38.5* 34.8* MCV 87.6 86.8 83.9 76.5* MCH 29.9 29.5 26.8* 24.0* MCHC 34.1 34.0 31.9* 31.3* PLTCOUNT 350 368 470* 548* RDWSD 60.7* 66.4* 76.1* 65.8* RDW 18.9* 20.9* 25.6* 24.6* MPV 11.0 11.0 9.9 10.4 NRBCABS 0.00 0.00 0.00 0.02* NRBCAUTOPCT 0.0 0.0 0.0 0.1* NEUTPCT - 54.6 49.6 62.5 LYMPHSPCT - 33.4 33.4 24.0 MONOPCT - 6.6 7.5 7.1 EOSPCT - 3.7 7.3* 4.6 BASOPCT - 1.4 1.9* 1.2 IMMGRANSPCT - 0.3 0.3 0.6 NEUTABS 7.75* 6.4 5.1 8.4* LYMPHS 4.50* 3.9* 3.4* 3.2* MONO - 0.77* 0.77* 0.95* EOS - 0.43 0.75* 0.62* BASO - 0.16* 0.19* 0.16* TOTCELLCNT 100 - - - Recent Labs Component Name 12/20/20 1035 11/16/20 1120 09/28/20 1438 BUN 12 12 12 CREATININE 1.06 1.0 1.1 NA 142 144 141 POTASSIUM 4.7* 4.9* 4.5 CL 108* 110* 107 CO2 27 24 24 CALCIUM 9.0 9.1 8.8 PROT 6.5 6.3 6.4 ALB 3.7 3.8 3.6 TBILI 0.2 0.2 0.2 ALKPHOS 107 112 113 ALT 41 45 38 AST 26 30 31 ANIONGAP 12 15 15 BCR 11 12 11 OSMOLALITY 294 298 292 AGRATIO 1.3 1.5 1.3 EGFR 81* >60 >60 Recent Labs Component Name 12/20/20 1035 11/16/20 1120 09/28/20 1438 MAGNESIUM 2.0 1.9 1.9 Recent Labs Component Name 12/20/20 1035 11/16/20 1120 09/28/20 1438 PHOS 2.1* 2.0* 2.6 IgG (11/16/20) 412- IVIG given (12/20/20)- IVIG given today RADIOLOGY ECHO with Bubble [...] 50 year old male, who is Day +427 (Day 0 is 10/20/19) of an autologous [...] that time -Covid from bronch 03/07 and CLINICAL CODER swab 03/07 both positive -received remdesivir 03/08 - 03/12 & convalescent plasma 03/10, completed steroid taper -continue albuterol PRN; advair was too costly so Symbicort was sent in today -O2 NC to keep sats >90, RA with rest -plan IVIG monthly, dose #7 given today (11/1520) -Covid IgG negative and RVP continues to be positive (09/28/20). -follows Dr. Francis outpatient, seen 09/28/20 > CT chest non-contrast as above [...] CPAP settings >will f/u with Dr. Francis 02/15/21 @ 2pm -unlikely to have antibodies due to B cell lymphoma treatment, likely permanent damage and lungs are scarred/fibrotic -reviewed with team, encouraged Aurelio to get Covid vaccine to offer any additional support he can have (got 1st dose, 11/16/20, 2nd dose 12/07/20) Anemia -Hgb remains low -continue ferrous sulfate [...] O2. Superficial madrigal around NC site - Currently healing- will continue to follow closely Anxiety/Depression - Lexapro 20 mg daily - [...] cell Caregiver: sister, girlfriend Preferred D/C Pharmacy: [facility] Intended lodging: home Referring provider: Cesar Tavares Disposition: RTC 02/15/21 for visit with basic labs, Covid swab, Covid IgG, IgG, IVIG, and Dr. Francis visit Love Aldana APRN, AGNP-C Blood and Bone Marrow Transplant Program [facility] Pager #[phone] Associated attestation - Hillary Apple MD - 12/20/2020 4:00 PM CDT I independently interviewed and examined Marcello Luis with the BMT advanced practice provider. I reviewed my findings and assessment with the advanced practice provider and the patient. I reviewed the below note. Please see note for full detail. Aurelio returns for a routine visit and IVIG Day 427 of autoSCT Received 2nd CoViD vaccine about 2 weeks ago, still CoViD IgG negative CoViD rnp swab pending O2 requirement has objectively improved and activity tolerance has subjectively improved Now using 6L O2 with activity To see Dr. Francis next visit in 6 weeks Still needs to call to set up pulm rehab Has not been wearing CPAP because mask no longer fits well However, CPAP settings were last assessed over 3 years ago Will refer to sleep medicine as it would be good to reassess CPAP settings post-CoViD Optimizing LISSA therapy may help headaches which already seem to be better with improved oxygenation Using oxy QD and tylenol BID Plan other transplant vaccines next visit Stay on PCN VK for asplenic state Hillary Apple MD MSc contract administration coordinator Interim Director, Division of Hematology/Oncology [facility] documented in this encounter Plan of Treatment Upcoming Encounters Date Type Department Care Team (Late st Contact Info) Description 08/26/2024 11:00 AM AUTOMOTIVE TITLE CLERK Office Visit [facility] - Pulmonology [address] [place] [address], [place] [address] Andrew Francis MD [address] [place] [address] 2L DIV OF PULMONARY/[place] [address] documented as of this encounter Procedures Procedure Name Priority Date/Time Associated Diagnosis Comments SARS-COV-2 (COVID-19) IN HOUSE Routine 12/20/2020 10:41 AM CDT Pneumonia due to COVID-19 virus SARS-COV-2 (COVID-19) ANTIBODY IGG Routine 12/20/2020 10:35 AM CDT Pneumonia due to COVID-19 virus DIFFERENTIAL MANUAL STAT 12/20/2020 1 0:35 AM CDT Diffuse large B-cell lymphoma, unspecified body region (HCC) CBC W AUTO DIFFERENTIAL STAT 12/20/2020 10:35 AM CDT Diffuse large B-cell lymphoma, unspecified body region (HCC) COMPREHENSIVE METABOLIC PANEL STAT 12/20/2020 10:35 AM CDT Diffuse large B-cell lymphoma, unspecified body region (HCC) PHOSPHORUS BLOOD STAT 12/20/2020 10:3 5 AM CDT Diffuse large B-cell lymphoma, unspecified body region (HCC) MAGNESIUM BLOOD STAT 12/20/2020 10:35 AM CDT Diffuse large B-cell lymphoma, unspecified body region (HCC) IGG BLOOD Routine 12/20/2020 10:35 AM CDT Diffuse large B-cell lymphoma, unspecified body region (HCC) documented in this encounter Results * SARS-COV-2 (COVID-19) IN HOUSE (12/20/2020 10:41 AM CDT) Pathologist [facility] COVID-19 PCR Not detected Not detected 12/20/2020 6:22 PM CDT [facility] Microbiology SPECIMEN FROM NASOPHARYNGEAL STRUCTURE / Unknown Collection / Unknown 12/20/2020 10:41 AM CDT 12/20/2020 11:12 AM CDT Narrative [facility] - 12/20/2020 6:22 PM CDT This nucleic acid amplification assay performance was validated by [facility]. This test has been authorized [...] this EUA assay are available upon request. Love Aldana APRN-LOCATION MAN LAB - MICROB IOLOGY ORDERABLES [facility] [address] [place] [address], [facility] [phone] * (ABNORMAL) DIFFERENTIAL MANUAL (12/20/2020 10:35 AM CDT) WBC (corrected for NRBC) 12.5 10? 3 /uL 12/20/2020 11:38 AM [facility] Total Cell Count 100 12/21/19 11:38 AM [facility] Neutrophils Absolute Manual 7.75(H) 1.60 - 7.00 10? 3 /uL 12/20/2020 11:38 AM [facility] Comment:(BANDS+SEGS) x WBC = NEUT # (ANC) Lymphocyte Absolute Manual 4.50(H) 1.10 - 3.90 10? 3 /uL 12/20/2020 11:38 AM [facility] Band % Manual 1 0 - 10 % 12/20/2020 11:38 AM [facility] Neutrophil % Manual 61 35 - 70 % 12/20/2020 11:38 AM [facility] Lymphocyte % Manual 36 20 - 43 % 12/20/2020 11:38 AM [facility] Atypical Lymphocyte % Manual 2(H) 0 % 12/20/2020 11:38 AM [facility] Platelet Estimate Adequate Adequate 12/20/2020 11:38 AM [facility] Anisocytosis Few(A) None 12/20/2020 11:38 AM [facility] Poikilocytes Few(A) None 12/20/2020 11:38 AM [facility] Macrocytosis Few(A) None 12/20/2020 11:38 AM [facility] Hypochromia Few(A) None 12/20/2020 11:38 AM [facility] Target Cells 1+(A) None 12/20/2020 11:38 AM [facility] Schistocytes Rare(A) None 12/20/2020 11:38 AM [facility] Ovalocytes Rare(A) None 12/20/2020 11:38 AM [facility] Tear Drop Cells Rare(A) None 11:38 AM [facility] Blood BLOOD SPECIMEN / Unknown Venipuncture / Unknown 12/20/2020 10:35 AM T 12/20/2020 10:49 AM CDT Tiffanie Nguyen [facility] LAB - HEMATOLOG Y ORDERABLES [address] [address], [facility] [phone] * (ABNORMAL) IGG BLOOD (12/20/2020 10:35 AM CDT) IgG 547(L) 767-1,590 mg/dL 12/20/2020 11:47 AM CDT [facility] Blood BLOOD SPECIMEN / Unknown Venipuncture / Unknown 12/20/2020 10:35 AM CDT 12/20/2020 11:22 AM CDT Tiffanie Nguyen [facility] LAB - CHEMISTRY ORDERABLES Performing Organization Address City/[facility]/ZIP Co de Phone Number [address] [address], [facility] [phone] * (ABNORMAL) PHOSPHORUS BLOOD (12/20/2020 10:35 AM CDT) Phosphorus 2.1(L) 2.3 - 4.7 mg/dL 12/20/2020 11:16 AM CDT [facility] Blood BLOOD SPECIMEN / Unknown Venipuncture / Unknown 12/20/2020 10:35 AM CDT 12/20/2020 10:49 AM CDT Tiffanie Nguyen [facility] LAB - CHEMISTRY ORDERABLES [address] [address], [facility] [phone] * MAGNESIUM BLOOD (12/20/2020 10:35 AM CDT) Magnesium 2.0 1.6 - 2.6 mg/dL 12/20/2020 11:15 AM CDT [facility] Blood BLOOD SPECIMEN / Unknown Venipuncture / Unknown 12/20/2020 10:35 AM CDT 12/20/2020 10:49 AM CDT Tiffanie Nguyen RETAIL GREETING CARD MERCHANDISER-LOCATION MAN LAB - CHEMISTRY ORDERABLES [facility] [address] [place] [address], [facility] [phone] * (ABNORMAL) CBC W AUTO DIFFERENTIAL (12/20/2020 10:35 AM CDT) WBC 12.5(H) 3.5 - 10.5 10? 3 /uL 12/20/2020 10:56 AM [facility] RBC 4.28(L) 4.30 - 5.70 10? 6 /uL 12/20/2020 10:56 AM [facility] Hemoglobin 12.8 12.0 - 17.6 g/dL 12/20/2020 10:56 AM [facility] Hematocrit 37.5 35.2 - 51.7 % 12/20/2020 10:56 AM [facility] MCV 87.6 80.7 - 98.3 fL 12/20/2020 10:56 AM [facility] MCH 29.9 26.7 - 34.0 pg 12/20/2020 10:56 AM [facility] MCHC 34.1 30.8 - 35.9 g/dL 12/20/2020 10:56 AM [facility] Platelet Count 350 150 - 400 10? 3 /uL 12/20/2020 10:56 AM [facility] RDW-SD 60.7(H) 36.0 - 50.0 fL 12/20/2020 10:56 AM [facility] RDW-CV 18.9(H) 11.2 - 14.8 % 12/20/2020 10:56 AM [facility] MPV 11.0 9.4 - 12.9 fL 12/20/2020 10:56 AM [facility] nRBC Absolute 0.00 0 10? 3 /uL 12/20/2020 10:56 AM [facility] nRBC Auto 0.0 0 /100 WBC 12/20/2020 10:56 AM [facility] Blood BLOOD SPECIMEN / Unknown Venipuncture / Unknown 12/20/2020 10:35 AM CDT 12/20/2020 10:49 AM T Tiffanie Nguyen RETAIL GREETING CARD MERCHANDISER-LOCATION MAN LAB - HEMATOLOG Y ORDERABLES Performing Organization Address City/[facility] Co de Phone Number [facility] [address] [place] [phone], [facility] [phone] * (ABNORMAL) COMPREHENSIVE METABOLIC PANEL (12/20/2020 10:35 AM T) BUN 12 7 - 26 mg/dL 12/20/2020 11:15 AM [facility] Creatinine 1.06 0.71 - 1.16 mg/dL 12/20/2020 11:15 AM [facility] Sodium 142 136 - 145 mmol/L 12/20/2020 11:15 AM [facility] Potassium 4.7(H) 3.5 - 4.5 mmol/L 12/20/2020 11:15 AM [facility] Chloride 108(H) 98 - 107 mmol/L 12/20/2020 11:15 AM [facility] CO2 27 22 - 29 mmol/L 12/20/2020 11:15 AM [facility] Glucose 104 70 - 115 mg/dL 12/20/2020 11:15 AM [facility] Calcium 9.0 8.4 - 10.2 mg/dL 12/20/2020 11:15 AM [facility] Protein Total 6.5 6.0 - 8.3 g/dL 12/20/2020 11:15 AM [facility] Albumin 3.7 3.4 - 5.0 g/dL 12/20/2020 11:15 AM [facility] Bilirubin Total 0.2 0.2 - 1.2 mg/dL 12/20/2020 11:15 AM [facility] Alkaline Phosphatase 107 40 - 150 U/L 12/20/2020 11:15 AM [facility] ALT 41 5 - 55 U/L 12/20/2020 11:15 AM [facility] AST 26 5 - 34 U/L 12/20/2020 11:15 AM [facility] Anion Gap 12 8 - 18 12/20/2020 11:15 AM [facility] BUN/Creatinine Ratio 11 7 - 23 12/20/2020 11:15 AM [facility] Osmolality Calculated 294 270 - 300 mOsm/kg 12/20/2020 11:15 AM [facility] Albumin/Globulin Ratio 1.3 1.1 - 2.3 12/20/2020 11:15 AM [facility] eGFR by CKD-EPI 81(L) >=90 mL/min/1.7 3 m2 12/20/2020 11:15 AM [facility] Blood BLOOD SPECIMEN / Unknown Venipuncture / Unknown 12/20/2020 10:35 AM CDT 12/20/2020 10:49 AM CDT Tiffanie Nguyen RETAIL GREETING CARD MERCHANDISER-LOCATION MAN LAB - CHEMISTRY ORDERABLES [facility] [address] [place] [phone], [facility] [phone] * SARS-COV-2 (COVID-19) ANTIBODY IGG (12/20/2020 10:35 AM CDT) [facility] Signature CoV2 IGG Negative 12/20/2020 12:05 PM [facility] Blood BLOOD SPECIMEN / Unknown Venipuncture / Unknown 12/20/2020 10:35 AM CDT 12/20/2020 11:22 AM CDT [facility] - 12/20/2020 12:05 PM CDT This serologic based test was developed by [employer] and its performance characteristics determined by [facility]. This test has not been [...] due to past or present infection with [id number] coronavirus strains. Rigorous scientific studies have not been completed to determine if detectable IgG to SARS-CoV-2 confers protective immunity. Love Aldana RETAIL GREETING CARD MERCHANDISER-LOCATION MAN LAB - CHEMIS TRY ORDERABLES [place] [id number] [place] [address], [facility] [phone] documented in this encounter Visit Diagnoses Diagnosis Ground glass opacity present on imaging of lung- Primary Pneumonia due to COVID-19 virus Diffuse large B-cell lymphoma, unspecified body region (HCC) Acute respiratory failure with hypoxia (HCC) Acute respiratory failure 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-cell lymphoma, unspecified B-cell lymphoma type, unspecified body region (HCC) Anemia, unspecified type Anxiety Anxiety state, unspecified documented in this encounter Administered Medications Inactive Administered Medications - up to 3 most recent administrations Medication Order MAR Action Action Date Dose Rate Site immune globulin (GAMUNEX-C) 10 % 40 g 40 g (rounded from 36.4 g = 0.4 g/kg ? 91 kg Order-specific weight), at 0-999 mL/hr, Intravenous, CONTINUOUS, Starting on Fri12/20/20 at 1000, Until Fri12/20/20 at 1559, If patient has history of IVIG infusion [...] IVIG should be infused alone. Rate Change 12/20/2020 11:40 AM CDT 546 mL/hr Rate Change 12/20/2020 11:24 AM CDT 273 mL/hr Rate Change 12/20/2020 11:08 AM CDT 136 mL/hr prochlorperazine (Compazine) injection 10 mg 10 mg, Intravenous, ONCE, 1 dose, On Fri12/20/20 at 1000, Max intravenous rate = 5 mg/min $ Given 12/20/2020 11:42 AM CDT 10 mg documented in this encounter Additional Health Concerns Infection Onset Date Last Indicated Resolved Time COVID-19 Under Investigation 12/20/2020 12/20/2020 12/20/2020 6:23 PM CDT documented as of this encounter Care Teams Employee Welfare Manager Relationship Specialty Start Date End Date Ran Nuñez MD [address] [place] [phone] PCP - General Family Medicine 03/22/19 12/22/20 Hillary Apple MD [address] [place] [address] Hematology and Oncology 03/17/19 Bill Ferrera MD [address] [place] [address] Hematology and Oncology 03/17/19 08/27/21 Tony Dumont MD [address] [place] [address] Hematology and Oncology 03/17/19 Maryjo Reinoso, VEHICLE ASSEMBLER Dental Lab Technician 03/17/19 Madyson Clay, PharmD 03/17/19 Dana Lala APRN-PANELBOARD OPERATOR [address] [place] [address] [address] [place] [address] Oncology 03/17/19 Tiffanie Nguyen, RETAIL GREETING CARD MERCHANDISER-LOCATION MAN [address] [place] [address] Family Medicine 03/17/19 Stephanie Mahoney, RN Registered Nurse 03/17/19 10/29/21 Alycia Galvan, ROSEMARY 03/17/19 10/29/21 Cesar Tavares MD [address] [place] [address] [place] [address] Referring Physician Medical Oncology 03/23/19 Karie Jones, RN Registered Nurse 06/08/19 10/29/21 Joy Bob 09/22/19 Addison Shea, PharmD Pharmacist 09/22/19 10/29/21 documented as of this encounter
--- OUTSIDE RECORDS SUMMARY | 2024-08-18 00:23 | XMS_ITS | Encounter Summary ---
Author Organization [facility] Address [address] [facility] [place] [address] Care Team Providers Care Thread Roller Name Role Phone Hillary Apple MD Unavailable [phone] Bill Ferrera MD Unavailable [phone] Tony Dumont MD Unavailable [phone] Maryjo Reinoso [facility] Unavailable Unavailable Madyson Clay PharmD Unavailable Unavaila Dana Galicia TECHNICAL CABLE JOINTER-APARTMENT LEASING SPECIALIST Unavailable [phone] Tiffanie Nguyen TECHNICAL CABLE JOINTER-EMPLOYEE RELATIONS MANAGER Unavailable Stephanie Mahoney RN Unavailable Unavailable Alycia Galvan RN Unavailable UnavailRan Mjeía MD Primary Care Provider Cesar Tavares MD Unavailable [phone] Karie Jones RN Unavailable Unavailable Joy Bob Unavailable Fanta Addison Weinstein PharmD Unavailable Unavailab le Encounter Details Date Type Department Care Team (Late st Contact Info) Description 11/16/2020 11:00 AM CDT Immunization [facility] COVID Vaccine [address] [place] [address] Alonso Matthews MD Need for vaccination Social [...] st Contact Info) Description 08/26/2024 11:00 AM AIR COMPRESSOR MECHANIC Office Visit [facility] - Pulmonology [address] [place] [address], [place] [address] Andrew Francis MD [address] [place] [address] DIV OF PULMONARY/[place] [address] documented as of this encounter Visit Diagnoses Diagnosis Need for vaccination- Primary Need for prophylactic vaccination and inoculation against unspecified single disease documented in this encounter Additional Health Concerns Infection Onset Date Last Indicated Resolved Time COVID-19 Under Investigation 11/16/2020 11/16/2020 11/16/2020 6:52 PM CDT documented as of this encounter Care Teams Thread Roller Relationship Specialty Start Date End Date Ran Nuñez MD [address] [place] [address] PCP - General Family Medicine 03/22/19 12/22/20 Hillary Apple MD [address] [place] [address] Hematology and Oncology 03/17/19 Bill Ferrera MD [address] [place] [address] Hematology and Oncology 03/17/19 08/27/21 Tony Dumont MD [address] [place] [address] Hematology and Oncology 03/17/19 Maryjo Reinoso, [facility] Electric Range Preparer 03/17/19 Madyson Clay, PharmD 03/17/19 Dana Lala, TECHNICAL CABLE JOINTER-APARTMENT LEASING SPECIALIST [address] [place] [address] 2[place] [address] Oncology 03/17/19 Tiffanie Nguyen, TECHNICAL CABLE JOINTER-EMPLOYEE RELATIONS MANAGER [address] [place] [address] 2[place] [address] Family Medicine 03/17/19 Stephanie Mahoney, RN Registered Nurse 03/17/19 10/29/21 Alycia Galvan, ROSEMARY 03/17/19 10/29/21 Cesar Tavares MD [address] [place] [address] Referring Physician Medical Oncology 03/23/19 Karie Jones, RN Registered Nurse 06/08/19 10/29/21 Joy Bob 09/22/19 Addison Shea, PharmD Pharmacist 09/22/19 10/29/21 documented as of this encounter
--- OUTSIDE RECORDS SUMMARY | 2024-08-18 00:23 | XMS_ITS | Encounter Summary ---
Author Organization [facility] Address [address] [facility] [place] [address] Care Team Providers Care Grizzly Worker Name Role Phone Hillary Apple MD Unavailable [phone] Bill Ferrera MD Unavailable [phone] Tony Dumont MD Unavailable [phone] Maryjo Reinoso [facility] Unavailable Unavailable Madyson Clay PharmD Unavailable Unavaila Dana Galicia PROJECT SCIENTIST-PEOPLESOFT TALEO MANAGER Unavailable [phone] Tiffanie Nguyen PROJECT SCIENTIST-INDUSTRIAL ECOLOGIST Unavailable Stephanie Mahoney RN Unavailable Unavailable Alycia Galvan RN Unavailable UnavailCesar Allen MD Unavailable [phone] Karie Jones RN Unavailable Unavailable Joy Bob Unavailable Fanta Addison Weinstein PharmD Unavailable Unavailab Alida Chang PROJECT SCIENTIST-INDUSTRIAL ECOLOGIST Primary Care Provider Encounter Details Date Type Department Care Team (Late st Contact Info) Description 03/09/2021 Orders Only [facility] BMT CLINIC [address] [place] [address] Bill Ferrera MD [address] [place] [address] Social History Tobacco Use Types Packs/Day Years [...] st Contact Info) Description 08/26/2024 11:00 AM PEOPLESOFT TALEO MANAGER Office Visit [facility] - Pulmonology [address] [facility] [place], [place] [address] Andrew Francis MD [address] [facility] 2L DIV OF PULMONARY/[place] [address] documented as of this encounter Visit Diagnoses Not on filedocumented in this encounter Care Teams Grizzly Worker Relationship Specialty Start Date End Date Alida Marshall APRN-INDUSTRIAL ECOLOGIST [address] [facility] DIV OF HEMATOLOGY & [place] [address] PCP - General Family Medicine 12/23/20 08/29/21 Hillary Apple MD [facility] [place] [id number] Hematology and Oncology 03/17/19 Bill Ferrera MD [address] [place] [address] Hematology and Oncology 03/17/19 08/27/21 Tony Dumont MD [address] [place] [address] Hematology and Oncology 03/17/19 Maryjo Reinoso, FULL DECATOR OPERATOR Yarder Operator 03/17/19 Madyson Clay, PharmD 03/17/19 Dana Lala, PROJECT SCIENTIST-PEOPLESOFT TALEO MANAGER [address] [place] [address] 2nd [place] [address] Oncology 03/17/19 Tiffanie Nguyen, PROJECT SCIENTIST-INDUSTRIAL ECOLOGIST [address] [place] [address] 2nd [place] [address] Family Medicine 03/17/19 Stephanie Mahoney, RN Registered Nurse 03/17/19 10/29/21 Alycia Galvan, RN 03/17/19 10/29/21 Cesar Tavares MD Referring Physician Medical Oncology 03/23/19 Karie Jones, RN Registered Nurse 06/08/19 10/29/21 Joy Bob 09/22/19 Addison Shea, PharmD Pharmacist 09/22/19 10/29/21 documented as of this encounter
--- OUTSIDE RECORDS SUMMARY | 2024-08-18 00:23 | XMS_ITS | Encounter Summary ---
Author Organization [facility] Address [address] [facility] [place] [address] Care Team Providers Care Leather Lacer Name Role Phone Hillary Apple MD Unavailable [phone] Bill Ferrera MD Unavailable [phone] Tony Dumont MD Unavailable [phone] Maryjo Reinoso [facility] Unavailable Unavailable Madyson Clay PharmD Unavailable Unavaila Dana Galicia INTELLIGENCE INTERN-SENIOR ORACLE DATABASE ADMINISTRATOR Unavailable [phone] Tiffanie Nguyen APRN-TECHNOLOGY OFFICER Unavailable [phone] Stephanie Mahoney RN Unavailable Unavailable Alycia Galvan RN Unavailable UnavailRan Mejía MD Primary Care Provider Cesar Tavares MD Unavailable [phone] Karie Jones RN Unavailable Unavailable Joy Bob Unavailable Fanta Addison Weinstein PharmD Unavailable Unavailab le Encounter Details Date Type Department Care Team (Late st Contact Info) Description 12/20/2020 Orders Only [facility] BMT CLINIC [address] [place] [address] Tiffanie Nguyen APRN-TECHNOLOGY OFFICER [address] [place] [id number] Pneumonia due to COVID-19 virus ; Status [...] Contact Info) Description 08/26/2024 11:00 AM AUTOMOTIVE MACHINIST APPRENTICE Office Visit [facility] - Pulmonology [address] [place] [address], [place] [address] Andrew Francis MD [address] [place] [address] DIV OF PULMONARY/[place] [address] documented as of this encounter Visit Diagnoses Diagnosis Pneumonia due to COVID-19 virus- Primary Status post autologous bone marrow transplant (HCC) Bone marrow replaced by transplant documented in this encounter Additional Health Concerns Infection Onset Date Last Indicated Resolved Time COVID-19 Under Investigation 12/20/2020 12/20/2020 12/20/2020 6:23 PM CDT documented as of this encounter Care Teams Leather Lacer Relationship Specialty Start Date End Date Ran Nuñez MD [address] [place] [address] PCP - General Family Medicine 03/22/19 12/22/20 Hillary Apple MD [facility] [place] [address] Hematology and Oncology 03/17/19 Bill Ferrera MD [address] [place] [address] Hematology and Oncology 03/17/19 08/27/21 Tony Dumont MD [address] [place] [address] Hematology and Oncology 03/17/19 Maryjo Reinoso, [facility] Brine Tank Separator Operator 03/17/19 Madyson Clay, PharmD 03/17/19 Dana Lala, INTELLIGENCE INTERN-SENIOR ORACLE DATABASE ADMINISTRATOR [address] [place], [place] [address]TA [facility] 2nd [place] [address] Oncology 03/17/19 Tiffanie Nguyen, INTELLIGENCE INTERN-TECHNOLOGY OFFICER [facility] 2nd [place] [address] Family Medicine 03/17/19 Stephanie Mahoney, RN Registered Nurse 03/17/19 10/29/21 Alycia Galvan, ROSEMARY 03/17/19 10/29/21 Cesar Tavares MD [address] [place] [address] Referring Physician Medical Oncology 03/23/19 Karie Jones, RN Registered Nurse 06/08/19 10/29/21 Joy Bob 09/22/19 Addison Shea, PharmD Pharmacist 09/22/19 10/29/21 documented as of this encounter
--- OUTSIDE RECORDS SUMMARY | 2024-08-18 00:23 | XMS_ITS | Encounter Summary ---
Author Organization [facility] Address [address] [facility] [place] [address] Care Team Providers Care Food Preparation Kitchen Aide Name Role Phone Hillary Apple MD Unavailable [phone] Bill Ferrera MD Unavailable [phone] Tony Dumont MD Unavailable [phone] Maryjo Reinoso [facility] Unavailable Unavailable Madyson Clay PharmD Unavailable Unavaila Dana Galicia PEDIATRIC CARE COORDINATOR-SLUMBER ROOM ATTENDANT Unavailable [phone] Tiffanie Nguyen PEDIATRIC CARE COORDINATOR-GENERAL SCIENCE TEACHER Unavailable [phone] Stephanie Mahoney RN Unavailable Unavailable Alycia Galvan RN Unavailable UnavailCesar Allen MD Unavailable Karie Jones RN Unavailable Unavailable Joy Bob Unavailable Fanta Addison Weinstein PharmD Unavailable Unavailab Alida Chang PEDIATRIC CARE COORDINATOR-GENERAL SCIENCE TEACHER Primary Care Provider Encounter Details Date Type Department Care Team (Latest Contact Info) Description 02/16/2021 Ambulatory Consult [facility] Pulmonary, Critical Care and Sleep Medicine [address] [place] [address] Andrew Francis MD [address] 2L DIV OF PULMONARY/[place] [address] Chronic respiratory failure with hypoxia (HCC) Social [...] Progress Notes * Andrew Francis MD - 02/16/2021 9:52 AM CDT BMT Pulmonary Splicer Apprentice Note The patient is a 50 y/o [...] has been negative as of 12/20/20. He believes he is improving. He denies SOB at rest. He does have some BARNES with climbing stairs. He does not use oxygen at rest, but uses up to 6 L/min with activity. He does have a cough that is occasionally productive. He has occasional wheezing. He remains on Symbicort 160/4.5 two inhalations bid. He has not required use of his Albuterol rescue inhaler. . PMHx: - B-cell NHL (dx'd in Apr [...] Previous use of MJ blunts Recommendations: I will have him undergo PFTs and CT chest in May 2021 and have him return to clinic on 05/17/21. He will continue to use Symbicort 160/4.5 mcg two puffs twice daily and AlbuterolMDI prn. He will continue to use 4 L/min of oxygen with activity. He will continue to exercise. I will have the [facility] see if they can arrange for a smaller portable oxygen concentrator. Andrew Francis M.D. Skeins Yarn Examiner of Internal Medicine Division of Pulmonary, Critical Care and Sleep Medicine [facility] [employer] documented in this encounter Plan of Treatment Upcoming Encounters Date Type Department Care Team (Late st Contact Info) Description 08/26/2024 11:00 AM PHARMACIST MANAGER Office Visit [facility] - Pulmonology [address] [place] [address], [facility] [place] [address] Andrew Francis MD [address] [facility] 2L DIV OF PULMONARY/[place] [address] documented as of this encounter Visit Diagnoses Diagnosis Chronic respiratory failure with hypoxia (HCC)- Primary Chronic respiratory failure documented in this encounter Care Teams Food Preparation Kitchen Aide Relationship Specialty Start Date End Date Alida Marshall APRN-GENERAL SCIENCE TEACHER [address] [address] DIV OF HEMATOLOGY & [place] [address] PCP - General Family Medicine 12/23/20 08/29/21 Hillary Apple MD [address] [place] [address] Hematology and Oncology 03/17/19 Bill Ferrera MD [address] [place] [address] Hematology and Oncology 03/17/19 08/27/21 Tony Dumont MD [address] [place] [address] Hematology and Oncology 03/17/19 Maryjo Reinoso, BONDING EQUIPMENT OPERATOR Rivet Bucker 03/17/19 Madyson Clay, PharmD 03/17/19 Dana Lala APRN-SLUMBER ROOM ATTENDANT [address] [place] [address] 2nd [place] [address] Oncology 03/17/19 Tiffanie Nguyen APRN-GENERAL SCIENCE TEACHER [address] [place] [address] 2nd [place] [address] Family Medicine 03/17/19 Stephanie Mahoney, RN Registered Nurse 03/17/19 10/29/21 Alycia Galvan, ROSEMARY 03/17/19 10/29/21 Cesar Tavares MD Referring Physician Medical Oncology 03/23/19 Karie Jones, RN Registered Nurse 06/08/19 10/29/21 Joy Bob 09/22/19 Addison Shea, PharmD Pharmacist 09/22/19 10/29/21 documented as of this encounter
--- OUTSIDE RECORDS SUMMARY | 2024-08-18 00:23 | XMS_ITS | Encounter Summary ---
Author Organization [facility] Address [address] [facility] [place] [address] Care Team Providers Care Client Strategist Name Role Phone Hillary Apple MD Unavailable [phone] Bill Ferrera MD Unavailable [phone] Tony Dumont MD Unavailable [phone] Maryjo Reinoso [facility] Unavailable Unavailable Madyson Clay PharmD Unavailable Unavaila Dana Galicia PRIVATE BANKER-VOCATIONAL CASE MANAGER Unavailable [phone] Tiffanie Nguyen APRN-WOOD CREW SUPERVISOR Unavailable [phone] Stephanie Mahoney RN Unavailable Unavailable Alycia Galvan RN Unavailable UnavailCesar Allen MD Unavailable [phone] Karie Jones RN Unavailable Unavailable Joy Bob Unavailable Fanta Addison Weinstein PharmD Unavailable Unavailab Alida Chang PRIVATE BANKER-WOOD CREW SUPERVISOR Primary Care Provider Encounter Details Date Type Department Care Team (Late st Contact Info) Description 02/21/2021 Orders Only [facility] BMT CLINIC [address] [place] [address] Tiffanie Nguyen APRN-WOOD CREW SUPERVISOR [address] [place] [address] Status post autologous bone marrow transplant (HCC) ; Diffuse large B-cell lymphoma, unspecified body region (HCC); B-cell lymphoma, unspecified B-cell lymphoma type, unspecified body region (HCC) Social History Tobacco [...] st Contact Info) Description 08/26/2024 11:00 AM ROSS FURNACE OPERATOR Office Visit [facility] Group - Pulmonology [address] [place] [address], [place] [address] Andrew Francis MD [address] [place] [address] 2L DIV OF PULMONARY/[place] [address] documented as of this encounter Visit Diagnoses Diagnosis Status post autologous bone marrow transplant (HCC)- Primary Bone marrow replaced by transplant Diffuse large B-cell lymphoma, unspecified body region (HCC) B-cell lymphoma, unspecified B-cell lymphoma type, unspecified body region (HCC) documented in this encounter Care Teams Client Strategist Relationship Specialty Start Date End Date Alida Marshall, PRIVATE BANKER-WOOD CREW SUPERVISOR [address] [facility] OF HEMATOLOGY & [place] [address] PCP - General Family Medicine 12/23/20 08/29/21 Hillary Apple MD [address] [place] [address] Hematology and Oncology 03/17/19 Bill Ferrera MD [address] [place] [address] Hematology and Oncology 03/17/19 08/27/21 Tony Dumont MD [address] [place] [address] Hematology and Oncology 03/17/19 Maryjo Reinoso, BALLISTICS EXPERT FORENSIC Rn Building 03/17/19 Madyson Clay, PharmD 03/17/19 Dana Lala, PRIVATE BANKER-VOCATIONAL CASE MANAGER [address] [place] [address] 2nd [place] [address] Oncology 03/17/19 Tiffanie Nguyen PRIVATE BANKER-WOOD CREW SUPERVISOR [address] [place] [address] 2nd [place] [address] Family Medicine 03/17/19 Stephanie Mahoney, RN Registered Nurse 03/17/19 10/29/21 Alycia Galvan, ROSEMARY 03/17/19 10/29/21 Cesar Tavares MD Referring Physician Medical Oncology 03/23/19 Karie Jones, RN Registered Nurse 06/08/19 10/29/21 Joy Bob 09/22/19 Addison Shea, PharmD Pharmacist 09/22/19 10/29/21 documented as of this encounter
--- OUTSIDE RECORDS SUMMARY | 2024-08-18 00:23 | XMS_ITS | Encounter Summary ---
Author Organization [facility] Address [address] [facility] [place] [address] Care Team Providers Care Cottage Supervisor Name Role Phone Hillary Apple MD Unavailable [phone] Bill Ferrera MD Unavailable [phone] Tony Dumont MD Unavailable [phone] Maryjo Reinoso [facility] Unavailable Unavailable Madyson Clay PharmD Unavailable Unavaila Dana Galicia MATERIALS MANAGER-BUSINESS ADMINISTRATION TEACHER Unavailable [phone] Tiffanie Nguyen MATERIALS MANAGER-CERTIFIED ORTHOTIC FITTER Unavailable Stephanie Mahoney RN Unavailable Unavailable Alycia Galvan RN Unavailable UnavailCesar Allen MD Unavailable [phone] Kaire Jones RN Unavailable Unavailable Joy Bob Unavailable Fanta Addison Weinstein PharmD Unavailable Unavailab Alida Chang MATERIALS MANAGER-CERTIFIED ORTHOTIC FITTER Primary Care Provider Encounter Details Date Type Department Care Team (Latest Contact Info) Description 02/15/2021 12:56 PM CDT - 02/15/2021 11:59 PM CDT Hospital Encounter [facility] BMT CLINIC [address] [place] [address] Andrew Francis MD [address] 2L DIV OF PULMONARY/[place] [address] Discharge Disposition: Home or Self Care Social [...] splenectomy,Status post autologous bone marrow transplant (HCC) Take 1 (one) tablet by mouth 2 [...] (OCEAN; BABY AYR) 0.65 % nasal spray Calvin 2 sprays into each nostril every 2 [...] st Contact Info) Description 08/26/2024 11:00 AM MILL TENDER WASHING Office Visit [facility] - Pulmonology [address] [facility], [place] [address] Andrew Francis MD [address] [facility] 2L DIV OF PULMONARY/[place] [address] documented as of this encounter Visit Diagnoses Diagnosis Diffuse large B-cell lymphoma, unspecified body region (HCC) 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) Bone marrow replaced by transplant documented in this encounter Care Teams Cottage Supervisor Relationship Specialty Start Date End Date Alida Marshall APRN-CERTIFIED ORTHOTIC FITTER [address] [facility] DIV OF HEMATOLOGY & [place] [address] PCP - General Family Medicine 12/23/20 08/29/21 Hillary Apple MD [address] [place] [address] Hematology and Oncology 03/17/19 Bill Ferrera MD [address] [place] [address] Hematology and Oncology 03/17/19 08/27/21 Tony Dumont MD [address] [place] [address] Hematology and Oncology 03/17/19 Maryjo Reinoso, PHP LAMP DEVELOPER Yard Foreman 03/17/19 Madyson Clay, PharmD 03/17/19 Dana Lala, MATERIALS MANAGER-BUSINESS ADMINISTRATION TEACHER [address] [place] [address] 2[place] [address] Oncology 03/17/19 Tiffanie Nguyen, MATERIALS MANAGER-CERTIFIED ORTHOTIC FITTER [address] [place] [address] [place] [address] Family Medicine 03/17/19 Stephanie Mahoney, RN Registered Nurse 03/17/19 10/29/21 Alycia Galvan, ROSEMARY 03/17/19 10/29/21 Cesar Tavares MD Referring Physician Medical Oncology 03/23/19 Karie Jones, RN Registered Nurse 06/08/19 10/29/21 Joy Bob 09/22/19 Addison Shea, PharmD Pharmacist 09/22/19 10/29/21 documented as of this encounter
--- OUTSIDE RECORDS SUMMARY | 2024-08-18 00:24 | XMS_ITS | Encounter Summary ---
Author Organization [facility] Address [address] [facility] [place] [address] Care Team Providers Care Screen Printing Machine Operator Name Role Phone Hillary Apple MD Unavailable [phone] Bill Ferrera MD Unavailable [phone] Tony Dumont MD Unavailable [phone] Maryjo Reinoso [facility] Unavailable Unavailable Madyson Clay PharmD Unavailable Unavaila Dana Galicia MICA MINER BLASTING-WET PRESS TENDER Unavailable [phone] Tiffanie Nguyen MICA MINER BLASTING-BEAD FLIPPER Unavailable [phone] Stephanie Mahoney RN Unavailable Unavailable Alycia Galvan RN Unavailable UnavailRan Mejía MD Primary Care Provider Cesar Tavares MD Unavailable [phone] aKrie Jones RN Unavailable Unavailable Joy Bob Unavailable Fanta Addison Weinstein PharmD Unavailable Unavailab le Encounter Details Date Type Department Care Team (Late st Contact Info) Description 11/05/2020 Orders Only [facility] B[facility] CLINIC [address] [place] [address] Hillary Apple MD [address] [facility] [place] [address] Hypoxia Social History Tobacco Use Types Packs/Day Years [...] st Contact Info) Description 08/26/2024 11:00 AM SURGICAL ASSISTANT Office Visit [facility] - Pulmonology [address] [place] [address], [place] [address] Andrew Francis MD [address] [place] [address] 2L DIV OF PULMONARY/[place] [address] documented as of this encounter Visit Diagnoses Diagnosis Hypoxia- Primary Hypoxemia documented in this encounter Care Teams Screen Printing Machine Operator Relationship Specialty Start Date End Date Ran Nuñez MD [address] [place] [address] PCP - General Family Medicine 03/22/19 12/22/20 Hillary Apple MD [address] [place] [address] Hematology and Oncology 03/17/19 Bill Ferrera MD [address] [place] [address] Hematology and Oncology 03/17/19 08/27/21 Tony Dumont MD [facility] [place] [address] Hematology and Oncology 03/17/19 Maryjo Reinoso, FLEET DRIVER Ornamental Painter 03/17/19 Madyson Clay, PharmD 03/17/19 Dana Lala, MICA MINER BLASTING-WET PRESS TENDER [address] [facility] 2nd [place] [address] Oncology 03/17/19 Tiffanie Nguyen, MICA MINER BLASTING-BEAD FLIPPER [address] [facility] 2[place] [address] Family Medicine 03/17/19 Stephanie Mahoney, RN Registered Nurse 03/17/19 10/29/21 Alycia Galvan, ROSEMARY 03/17/19 10/29/21 Cesar Tavares MD [address] [place] [address] [place] [address] Referring Physician Medical Oncology 03/23/19 Karie Jones, RN Registered Nurse 06/08/19 10/29/21 Joy Bob 09/22/19 Addison Shea, PharmD Pharmacist 09/22/19 10/29/21 documented as of this encounter
--- OUTSIDE RECORDS SUMMARY | 2024-08-18 00:24 | XMS_ITS | Encounter Summary ---
Author Organization [facility] Address [address] [facility] [place] [address] Care Team Providers Care Finance Effectiveness Manager Name Role Phone Hillary Apple MD Unavailable [phone] Bill Ferrera MD Unavailable [phone] Tony Dumont MD Unavailable [phone] Maryjo Reinoso OIL EXPERT Unavailable Unavailable Madyson Clay PharmD Unavailable Unavaila Dana Galicia FILTER TENDER JELLY-MANAGER FIELD SERVICE Unavailable [phone] Tiffanie Nguyen FILTER TENDER JELLY-VEHICLE INSPECTOR Unavailable [phone] Stephanie Mahoney RN Unavailable Unavailable Alycia Galvan RN Unavailable UnavailRan Mejía MD Primary Care Provider Cesar Tavares MD Unavailable [phone] Karie Jones RN Unavailable Unavailable Joy Bob Unavailable Fanta Addison Weinstein PharmD Unavailable Unavailab le Reason for Referral * Radiology Services (Routine) - Closed Specialty Diagnoses / Procedures Referred By Contac t Referred To Contact CT Scan Diagnoses Pneumonia due to COVID-[address] CHEST WO CONTRAST Hillary Apple MD [address] [place] [address] OF HEMATOLOGY & [place] [address] [facility] [address] [place] [phone] Referral ID Status Reason Start Date Expiration Date Visits Re quested Visits Authorized [id number] Closed 08/31/2020 08/31/2021 1 1 NESS SYSTEMS ANALYST Encounter Details Date Type Department Care Team (Late Contact Info) Description 08/31/2020 Orders Only [facility] [address] [place] [address] Tiffnaie Nguyen, FILTER TENDER JELLY-VEHICLE INSPECTOR [address] [place] [address] Pneumonia due to COVID-19 virus Social History [...] Contact Info) Description 08/26/2024 11:00 AM BUSINESS SYSTEMS ANALYST Office Visit [facility] - Pulmonology [address] [place] [address], [place] [address] Andrew Francis MD [address] [facility] 2L DIV OF PULMONARY/[place] [address] documented as of this encounter Results * CT CHEST WO CONTRAST (09/28/2020 1:37 PM BUSINESS SYSTEMS ANALYST) Anatomical Region Laterality Modality Chest Computed Tomogra phy 09/28/2020 2:01 PM BUSINESS SYSTEMS ANALYST Impressions 09/28/2020 2:05 PM BUSINESS SYSTEMS ANALYST Impression: Interval development of areas of reticulation, cystic change, and bronchiectasis as detailed above, with some areas of volume loss. The findings suggest postinflammatory fibrosis. This report was electronically signed by YARA MADRIGAL ??on 09/28/2020 2:05 PM . Narrative 09/28/2020 2:05 PM BUSINESS SYSTEMS ANALYST Procedure Information DATE: 09/28/2020 1:37 PM EXAMINATION: [...] Diagnosis Pneumonia due to COVID-19 virus- Primary Pneumonia due to COVID-19 virus documented in this encounter Care Teams Finance Effectiveness Manager Relationship Specialty Start Date End Date Ran Nuñez MD [address] [place] [address] PCP - General Family Medicine 03/22/19 12/22/20 Hillary Apple MD [address] [place] [address] Hematology and Oncology 03/17/19 Bill Ferrera MD [address] [place] [address] Hematology and Oncology 03/17/19 08/27/21 Tony Dumont MD [address] [place] [address] Hematology and Oncology 03/17/19 Maryjo Reinoso, OIL EXPERT Departure Clerk 03/17/19 Madyson Clay, PharmD 03/17/19 Dana Lala, FILTER TENDER JELLY-MANAGER FIELD SERVICE [address] [place] [address] 2nd [place] [address] Oncology 03/17/19 Tiffanie Nguyen, FILTER TENDER JELLY-VEHICLE INSPECTOR [address] [place] [address] 2nd [place] [address] Family Medicine 03/17/19 Stephanie Mahoney, RN Registered Nurse 03/17/19 10/29/21 Alycia Galvan, ROSEMARY 03/17/19 10/29/21 Cesar Tavares MD [address] [place] [address] [place] [address] Referring Physician Medical Oncology 03/23/19 Karie Jones, RN Registered Nurse 06/08/19 10/29/21 Joy Bob 09/22/19 Addison Shea, PharmD Pharmacist 09/22/19 10/29/21 documented as of this encounter
--- OUTSIDE RECORDS SUMMARY | 2024-08-18 00:24 | XMS_ITS | Encounter Summary ---
Author Organization [facility] Address [address] [facility] [place] [address] Care Team Providers Care Braiding Machine Operator Name Role Phone Hillary Apple MD Unavailable [phone] Bill Ferrera MD Unavailable [phone] Tony Dumont MD Unavailable [phone] Maryjo Reinoso [facility] Unavailable Unavailable Madyson Clay PharmD Unavailable Unavaila Dana Galicia LOADER ENGINEER-SITE PROMOTION AGENT Unavailable [phone] Tiffanie Nguyen APRN-BROKERAGE BRANCH MANAGER Unavailable Stephanie Mahoney RN Unavailable Unavailable Alycia Galvan RN Unavailable UnavailRan Mejía MD Primary Care Provider Cesar Tavares MD Unavailable [phone] Karie Jones RN Unavailable Unavailable Joy Bob Unavailable Fanta Addison Weinstein PharmD Unavailable Unavailab le Encounter Details Date Type Department Care Team (Late st Contact Info) Description 10/31/2020 Orders Only [facility] B[facility] CL[facility]IC [address] [place] [address] Tiffanie Nguyen APRN-BROKERAGE BRANCH MANAGER [address] [place] [address] Acute respiratory failure with hypoxia (HCC) Social [...] Contact Info) Description 08/26/2024 11:00 AM CHIEF OPHTHALMIC TECHNICIAN Office Visit [facility] - Pulmonology [address] [place] [address], [place] [address] Andrew Francis MD [address] [place] [address] 2L DIV OF PULMONARY/[place] [address] documented as of this encounter Visit Diagnoses Diagnosis Acute respiratory failure with hypoxia (HCC)- Primary Acute respiratory failure documented in this encounter Care Teams Braiding Machine Operator Relationship Specialty Start Date End Date Ran Nuñez MD [address] [place] [address] PCP - General Family Medicine 03/22/19 12/22/20 Hillary Apple MD [address] [place] [address] Hematology and Oncology 03/17/19 Bill Ferrera MD [address] [place] [address] Hematology and Oncology 03/17/19 08/27/21 Tony Dumont MD [address] [place] [address] Hematology and Oncology 03/17/19 Maryjo Reinoso, HATCHERY ATTENDANT Instrument Fitter 03/17/19 Madyson Clay, PharmD 03/17/19 Dana Lala, LOADER ENGINEER-SITE PROMOTION AGENT [address] [facility] 2nd [place] [address] Oncology 03/17/19 Tiffanie Nguyen, LOADER ENGINEER-BROKERAGE BRANCH MANAGER [address] [facility] 2nd [place] [address] Family Medicine 03/17/19 Stephanie Mahoney, RN Registered Nurse 03/17/19 10/29/21 Alycia Galvan, ROSEMARY 03/17/19 10/29/21 Cesar Tavares MD [address] [place] [address] [place] [address] Referring Physician Medical Oncology 03/23/19 Karie Jones, RN Registered Nurse 06/08/19 10/29/21 Joy Bob 09/22/19 Addison Shea, PharmD Pharmacist 09/22/19 10/29/21 documented as of this encounter
--- OUTSIDE RECORDS SUMMARY | 2024-08-18 00:24 | XMS_ITS | Encounter Summary ---
Author Organization [facility] Address [address] [place] [address] Care Team Providers Care Crude Tester Name Role Phone Hillary Apple MD Unavailable [phone] Bill Ferrera MD Unavailable [phone] Tony Dumont MD Unavailable Maryjo Reinoso [facility] Unavailable Unavailable Madyson Clay PharmD Unavailable Unavaila Dana Galicia VICE PRESIDENT CORPORATE COMMUNICATIONS-PARKING INSPECTOR Unavailable [phone] Tiffanie Nguyen VICE PRESIDENT CORPORATE COMMUNICATIONS-MONOTYPIST Unavailable [phone] Stephanie Mahoney RN Unavailable Unavailable Alycia Galvan RN Unavailable UnavailRan Mejía MD Primary Care Provider Cesar Tavares MD Unavailable Karie Jones RN Unavailable Unavailable Joy Bob Unavailable Fanta Addison Weinstein PharmD Unavailable Unavailab campbell Reason for Visit * Reason Onset Date Comments MEDICATION REFILL 08/10/2020 Encounter Details Date Type Department Care Team (Late st Contact Info) Description 08/10/2020 [facility] [address] [place] [address] Hillary Apple MD [address] [facility] OF HEMATOLOGY & [place] [address] MEDICATION REFILL Social History Tobacco Use Types [...] st Contact Info) Description 08/26/2024 11:00 AM WAREHOUSE MANAGER Office Visit [facility] - Pulmonology [address] [place] [address], [place] [address] Andrew Francis MD [address] [place] [address] 2L DIV OF PULMONARY/[place] [address] documented as of this encounter Visit Diagnoses Not on filedocumented in this encounter Care Teams Crude Tester Relationship Specialty Start Date End Date Ran Nuñez MD [address] [place] [address] PCP - General Family Medicine 03/22/19 12/22/20 Hillary Apple MD [address] [place] [address] Hematology and Oncology 03/17/19 Bill Ferrera MD [address] [place] [address] Hematology and Oncology 03/17/19 08/27/21 Tony Dumont MD [address] [place] [address] Hematology and Oncology 03/17/19 Maryjo Reinoso, [facility] Fourchette Sewer 03/17/19 Madyson Clay, PharmD 03/17/19 Dana Lala, VICE PRESIDENT CORPORATE COMMUNICATIONS-PARKING INSPECTOR [address] [facility] 2nd [place] [address] Oncology 03/17/19 Tiffanie Nguyen, VICE PRESIDENT CORPORATE COMMUNICATIONS-MONOTYPIST [address] [place] [address] Family Medicine 03/17/19 Stephanie Mahoney, RN Registered Nurse 03/17/19 10/29/21 Alycia Galvan, ROSEMARY 03/17/19 10/29/21 Cesar Tavares MD [address] [place] [address] [place] [address] Referring Physician Medical Oncology 03/23/19 Karie Jones, RN Registered Nurse 06/08/19 10/29/21 Joy Bob 09/22/19 Addison Shea, PharmD Pharmacist 09/22/19 10/29/21 documented as of this encounter
--- OUTSIDE RECORDS SUMMARY | 2024-08-18 00:24 | XMS_ITS | Encounter Summary ---
Author Organization [facility] Address [address] [facility] [place] [address] Care Team Providers Care Wage Conciliator Name Role Phone Hillary Apple MD Unavailable [phone] Bill Ferrera MD Unavailable [phone] Tony Dumont MD Unavailable Maryjo Reinoso [facility] Unavailable Unavailable Madyson Clay PharmD Unavailable Unavaila Dana Galicia HOUSEMAID-PRODUCT DEVELOPMENT ASSISTANT Unavailable [phone] Tiffanie Nguyen HOUSEMAID-ASSISTANCE COORDINATOR Unavailable [phone] Stephanie Mahoney RN Unavailable Unavailable Alycia Galvan RN Unavailable UnavailRan Mejía MD Primary Care Provider Cesar Tavares MD Unavailable [phone] Karie Jones RN Unavailable Unavailable Joy Bob Unavailable Fanta Addison Weinstein PharmD Unavailable Unavailab campbell Reason for Visit * Reason Onset Date Comments MEDICATION REFILL 11/06/2020 Encounter Details Date Type Department Care Team (Late st Contact Info) Description 11/06/2020 Refill [facility] [address] [place] [address] Hillary Apple MD [address] [facility] OF HEMATOLOGY [place] [address] MEDICATION REFILL Social History Tobacco [...] Contact Info) Description 08/26/2024 11:00 AM AUTOMOTIVE SERVICES MANAGER Office Visit [facility] - Pulmonology [address] [place] [address], [place] [address] Andrew Francis MD [address] [place] [address] 2L DIV OF PULMONARY/[place] [address] documented as of this encounter Visit Diagnoses Not on filedocumented in this encounter Care Teams Wage Conciliator Relationship Specialty Start Date End Date Ran Nuñez MD [address] [place] [address] PCP - General Family Medicine 03/22/19 12/22/20 Hillary Apple MD [address] [place] [address] Hematology and Oncology 03/17/19 Bill Ferrera MD [address] [place] [address] Hematology and Oncology 03/17/19 08/27/21 Tony Dumont MD [address] [place] [address] Hematology and Oncology 03/17/19 Maryjo Reinoso, EL TEACHER Dip Stand Loader 03/17/19 Madyson Clay, PharmD 03/17/19 Dana Lala, HOUSEMAID-PRODUCT DEVELOPMENT ASSISTANT [address] [facility] 2nd [place] [address] Oncology 03/17/19 Tiffanie Nguyen, HOUSEMAID-ASSISTANCE COORDINATOR [address] [facility] 2nd [place] [address] Family Medicine 03/17/19 Stephanie Mahoney, RN Registered Nurse 03/17/19 10/29/21 Alycia Galvan, ROSEMARY 03/17/19 10/29/21 Cesar Tavares MD [address] [place] [address] [place] [address] Referring Physician Medical Oncology 03/23/19 Karie Jones, RN Registered Nurse 06/08/19 10/29/21 Joy Bob 09/22/19 Addison Shea, PharmD Pharmacist 09/22/19 10/29/21 documented as of this encounter
--- OUTSIDE RECORDS SUMMARY | 2024-08-18 00:24 | XMS_ITS | Encounter Summary ---
Author Organization [facility] Address [address] [facility] [place] [address] Care Team Providers Care Test Fixture Designer Name Role Phone Hillary Apple MD Unavailable [phone] Bill Ferrera MD Unavailable [phone] Tony Dumont MD Unavailable [phone] Maryjo Reinoso LIQUIFIED NATURAL GAS TECHNICIAN Unavailable Unavailable Madyson Clay PharmD Unavailable Unavaila Dana Galicia CASTABLES WORKER-EARTH SCIENCE TECHNICIAN Unavailable [phone] Tiffanie Nguyen CASTABLES WORKER-FINISHER MERCHANT PRODUCTS Unavailable [phone] Stephanie Mahoney RN Unavailable Unavailable Alycia Galvan RN Unavailable UnavailRan Mejía MD Primary Care Provider Cesar Tavares MD Unavailable [phone] Karie Jones RN Unavailable Unavailable Joy Bob Unavailable Fanta Addison Weinstein PharmD Unavailable Unavailab le Reason for Referral * Radiology Services (Routine) - Closed Specialty Diagnoses / Procedures Referred By Contac t Referred To Contact CT Scan Diagnoses Pneumonia due to COVID-[address] CHEST WO CONTRAST Hillary Apple MD [address] [place] [address] OF HEMATOLOGY & [place] [address] [facility] [address] [place] [phone] Referral ID Status Reason Start Date Expiration Date Visits Re quested Visits Authorized [id number] Closed 08/31/2020 08/31/2021 1 1 AL LABORATORY SUPERVISOR Reason for Visit * Radiology Services (Routine) - Closed Specialty Diagnoses / Procedures Referred By Contac t Referred To Contact CT Scan Diagnoses Pneumonia due to COVID-[address] [place] [address] [place] [address] OF HEMATOLOGY & [place] [address] [facility] [address] [place] [address] Referral ID Status Reason Start Date Expiration Date Visits Re quested Visits Authorized [id number] Closed 08/31/2020 08/31/2021 1 1 Encounter Details Date Type Department Care Team (Late st Contact Info) Description 09/28/2020 1:00 PM DENTAL LABORATORY SUPERVISOR - 09/28/2020 1:29 PM DENTAL LABORATORY SUPERVISOR Hospital Encounter [facility] CAT SCAN [address] [place] [address] Hillary Apple MD [address] [place] [address] OF HEMATOLOGY & [place] [address] Discharge Disposition: Home or Self Care Social [...] have Coronavirus / COVID-19? No / Unsure 09/28/2020 1:10 PM DENTAL LABORATORY SUPERVISOR documented as of this encounter Functional Status [...] times daily 360 tablet 3 06/07/2020 11/28/2020 diclofenac sodium EC (VOLTAREN) 75 MG tablet TK 1 T PO BID PRF PAIN 06/05/202006/30 escitalopram (LEXAPRO) 20 MG tablet Take 1 tablet by mouth once daily 30 tablet 11 07/14/2020 08/10/2021 ferrous sulfate 325 (65 FE) MG tablet Take 1 tablet by mouth once daily 100 tablet 07/14/2020 10/01/2020 fluticasone propionate (FLONASE) 50 MCG/ACT nasal spray 2 SPRAYS IN EACH NOSTRIL Q DAY 06/02/2020 12/20/2021 fluticasone-salmeter ol (ADVAIR/WIXELA) 250-50 MCG/DOSE inhaler Inhale 1 puff by mouth 2 times daily 60 Each 11 08/09/2020 11/16/2020 ondansetron, disintegrating, (ZOFRAN ODT) 8 MG tablet Dissolve 1 tablet on top of tongue then swallow with saliva every 8 hours as needed for nausea or vomiting 04/19/2019 12/20/2021 oxyCODONE, immediate release, (ROXICODONE) 5 MG tablet Take 1 (one) tablet by mouth every 12 hours as needed for Pain 60 tablet 09/04/2020 10/03/2020 penicillin v potassium (VEETIDS) 250 MG tabletIndications:Di [...] (OCEAN; BABY AYR) 0.65 % nasal spray Hulett 2 sprays into each nostril every 2 hours as needed for Dry Nose 04/05/2020 12/20/2021 sulfamethoxazole-tri methoprim (BACTRIM DS; SEPTRA DS) 800-160 MG tabletIndications:PJ P prophylaxis s/p stem cell transplant Take 1 tablet by mouth every Friday, Friday & Friday Reasons: PJP prophylaxis s/p stem cell transplant 12 tablet 3 11/01/2019 01/02/2021 vitamin D3-cholecalciferol (CHOLECALCIFEROL) 25 MCG (1000 UNITS) tablet Take 2 tablets by mouth once daily 60 tablet 3 07/04/2020 11/03/2020 documented as of this encounter Plan of Treatment Upcoming Encounters Date Type Department Care Team (Late st Contact Info) Description 08/26/2024 11:00 AM DENTAL LABORATORY SUPERVISOR Office Visit [facility] - Pulmonology [address] [place] [address], [place] [address] Andrew Francis MD [address] [place] [address] DIV OF PULMONARY/[place] [address] documented as of this encounter Procedures Procedure Name Priority Date/Time Associated Diagnosis Comments CT CHEST WO CONTRAST Routine 09/28/2020 1:37 PM DENTAL LABORATORY SUPERVISOR Pneumonia due to COVID-19 virus documented in this encounter Results * CT CHEST WO CONTRAST (09/28/2020 1:37 PM DENTAL LABORATORY SUPERVISOR) Anatomical Region Laterality Modality Chest Computed Tomogra phy 09/28/2020 2:01 PM DENTAL LABORATORY SUPERVISOR Impressions 09/28/2020 2:05 PM DENTAL LABORATORY SUPERVISOR Impression: Interval development of areas of reticulation, cystic change, and bronchiectasis as detailed above, with some areas of volume loss. The findings suggest postinflammatory fibrosis. This report was electronically signed by YARA MADRIGAL ??on 09/28/2020 2:05 PM . Narrative 09/28/2020 2:05 PM DENTAL LABORATORY SUPERVISOR Procedure Information DATE: 09/28/2020 1:37 PM EXAMINATION: [...] Diagnoses Diagnosis Pneumonia due to COVID-19 virus documented in this encounter Care Teams Test Fixture Designer Relationship Specialty Start Date End Date Ran Nuñez MD [place] [address] PCP - General Family Medicine 03/22/19 12/22/20 Hillary Apple MD [address] [place] [address] Hematology and Oncology 03/17/19 Bill Ferrera MD [address] [place] [address] Hematology and Oncology 03/17/19 08/27/21 Tony Dumont MD [address] [place] [address] Hematology and Oncology 03/17/19 Maryjo Reinoso, LIQUIFIED NATURAL GAS TECHNICIAN Efficiency Clerk 03/17/19 Madyson Clay, PharmD 03/17/19 Dana Lala, CASTABLES WORKER-EARTH SCIENCE TECHNICIAN [address] [place] [address] 2nd [place] [address] Oncology 03/17/19 Tiffanie Nguyen, CASTABLES WORKER-FINISHER [employer] [address] [place] [address] 2nd [place] [address] Family Medicine 03/17/19 Stephanie Mahoney, RN Registered Nurse 03/17/19 10/29/21 Alycia Galvan, ROSEMARY 03/17/19 10/29/21 Cesar Tavares MD [address] [place] [address] Referring Physician Medical Oncology 03/23/19 Karie Jones, RN Registered Nurse 06/08/19 10/29/21 Joy Bob 09/22/19 Addison Shea, PharmD Pharmacist 09/22/19 10/29/21 documented as of this encounter
--- OUTSIDE RECORDS SUMMARY | 2024-08-18 00:24 | XMS_ITS | Encounter Summary ---
Author Organization [facility] Address [address] [place] [address] Care Team Providers Care Collections Director Name Role Phone Hillary Apple MD Unavailable [phone] Bill Ferrera MD Unavailable [phone] Tony Dumont MD Unavailable [phone] Maryjo Reinoso [facility] Unavailable Unavailable Madyson Clay PharmD Unavailable Unavaila Dana Galicia TICKET CHOPPER ASSEMBLER-DENTIST/OWNER Unavailable [phone] Tiffanie Nguyen TICKET CHOPPER ASSEMBLER-WARRANTY COORDINATOR Unavailable [phone] Stephanie Mahoney RN Unavailable Unavailable Alycia Galvan RN Unavailable UnavailRan Mejía MD Primary Care Provider Cesar Tavares MD Unavailable [phone] Karie Jones RN Unavailable Unavailable Joy Bob Unavailable Fanta Addison Weinstein PharmD Unavailable Unavailab campbell Reason for Visit * Reason Onset Date Comments MEDICATION REFILL 09/04/2020 Encounter Details Date Type Department Care Team (Late st Contact Info) Description 09/04/2020 Refill [facility] CLINIC [address] [place] [address] Hillary Apple MD [address] [facility] OF HEMATOLOGY & [place] [address] MEDICATION REFILL Social History Tobacco [...] st Contact Info) Description 08/26/2024 11:00 AM RV MECHANIC Office Visit [facility] - Pulmonology [address] [place] [address], [place] [address] Andrew Francis MD [address] [place] [address] 2L DIV OF PULMONARY/[place] [address] documented as of this encounter Visit Diagnoses Not on filedocumented in this encounter Additional Health Concerns Infection Onset Date Last Indicated Resolved Time COVID-19 Confirmed 08/31/2020 08/31/2020 4:34 AM RV MECHANIC documented as of this encounter Care Teams Collections Director Relationship Specialty Start Date End Date Ran Nuñez MD [address] [place] [address] PCP - General Family Medicine 03/22/19 12/22/20 Hillary Apple MD [address] [place] [address] Hematology and Oncology 03/17/19 Bill Ferrera MD [address] [place] [address] Hematology and Oncology 03/17/19 08/27/21 Tony Dumont MD [address] [place] [address] Hematology and Oncology 03/17/19 Maryjo Reinoso, ROASTER SUPERVISOR Revenue Accounting Manager 03/17/19 Madyson Clay, PharmD 03/17/19 Dana Lala, TICKET CHOPPER ASSEMBLER-DENTIST/OWNER [address] [place] [address] 2nd [place] [address] Oncology 03/17/19 Tiffanie Nguyen, TICKET CHOPPER ASSEMBLER-WARRANTY COORDINATOR [address] [place] [address] 2nd [place] [address] Family Medicine 03/17/19 Stephanie Mahoney, RN Registered Nurse 03/17/19 10/29/21 Alycia Galvan, ROSEMARY 03/17/19 10/29/21 Cesar Tavares MD [address] [place] [address] [place] [address] Referring Physician Medical Oncology 03/23/19 Karie Jones, RN Registered Nurse 06/08/19 10/29/21 Joy Bob 09/22/19 Addison Shea, PharmD Pharmacist 09/22/19 10/29/21 documented as of this encounter
--- OUTSIDE RECORDS SUMMARY | 2024-08-18 00:24 | XMS_ITS | Encounter Summary ---
Author Organization [facility] Address [address] [facility] [place] [address] Care Team Providers Care Loss Prevention Manager Name Role Phone Hillary Apple MD Unavailable [phone] Bill Ferrera MD Unavailable [phone] Tony Dumont MD Unavailable [phone] Maryjo Reinoso [facility] Unavailable Unavailable Madyson Clay PharmD Unavailable Unavaila Dana Galicia SWATCH CLERK-FLIGHT INSTRUCTOR Unavailable [phone] Tiffanie Nguyen SWATCH CLERK-REMOTE SENSING SURVEYOR Unavailable [phone] Setphanie Mahoney RN Unavailable Unavailable Alycia Galvan RN Unavailable UnavailRan Mejía MD Primary Care Provider Cesar Tavares MD Unavailable [phone] Karie Jones RN Unavailable Unavailable Joy Bob Unavailable Fanta Addison Weinstein PharmD Unavailable Unavailab le Encounter Details Date Type Department Care Team (Late st Contact Info) Description 09/13/2020 Orders Only [facility] Hospital - COVID Vaccine [address] [place] [id number] Alonso Walton MD [address] [place] [address] Need for vaccination Social History Tobacco Use [...] st Contact Info) Description 08/26/2024 11:00 AM MASSAGE COORDINATOR Office Visit [facility] - Pulmonology [address] [place] [address], [place] [phone] Andrew Francis MD [address] [place] [address] 2L DIV OF PULMONARY/[place] [address] documented as of this encounter Visit Diagnoses Diagnosis Need for vaccination Need for prophylactic vaccination and inoculation against unspecified single disease documented in this encounter Care Teams Loss Prevention Manager Relationship Specialty Start Date End Date Ran Nuñez MD [address] [place] [address] PCP - General Family Medicine 03/22/19 12/22/20 Hillary Apple MD [address] [place] [address] Hematology and Oncology 03/17/19 Bill Ferrera MD [address] [place] [address] Hematology and Oncology 03/17/19 08/27/21 Tony Dumont MD [address] [place] [address] Hematology and Oncology 03/17/19 Maryjo Reinoso, CLINICAL DOCUMENTATION CONSULTANT Technical Illustrator 03/17/19 Madyson Clay, PharmD 03/17/19 Dana Lala, SWATCH CLERK-FLIGHT INSTRUCTOR [address] [facility] 2nd [place] [address] Oncology 03/17/19 Tiffanie Nguyen, SWATCH CLERK-REMOTE SENSING SURVEYOR [address] [facility] 2nd [place] [address] Family Medicine 03/17/19 Stephanie Mahoney, RN Registered Nurse 03/17/19 10/29/21 Alycia Galvan, ROSEMARY 03/17/19 10/29/21 Cesar Tavares MD [address] [place] [address] [place] [address] Referring Physician Medical Oncology 03/23/19 Karie Jones, RN Registered Nurse 06/08/19 10/29/21 Joy Bob 09/22/19 Addison Shea, PharmD Pharmacist 09/22/19 10/29/21 documented as of this encounter
--- OUTSIDE RECORDS SUMMARY | 2024-08-18 00:24 | XMS_ITS | Encounter Summary ---
Author Organization [facility] Address [address] [facility] [address] Care Team Providers Care Electrical Contractor Name Role Phone Hillary Apple MD Unavailable [phone] Bill Ferrera MD Unavailable [phone] Tony Dumont MD Unavailable [phone] Maryjo Reinoso [facility] Unavailable Unavailable Madyson Clay PharmD Unavailable Unavaila Dana Galicia FRONT END ENGINEER-NATURAL GAS BASIS TRADER Unavailable [phone] Tiffanie Nguyen FRONT END ENGINEER-BONE DRIER OPERATOR Unavailable [phone] Stephanie Mahoney RN Unavailable Unavailable Alycia Galvan RN Unavailable UnavailRan Mejía MD Primary Care Provider Cesar Tavares MD Unavailable [phone] Karie Jones RN Unavailable Unavailable Joy Bob Unavailable Fanta Addison Weinstein PharmD Unavailable Unavailab le Encounter Details Date Type Department Care Team (Late st Contact Info) Description 09/28/2020 Orders Only [facility] Pulmonary, Critical Care and Sleep Medicine [address] [facility], [place] [id number] Andrew Francis MD [address] [facility] 2L DIV OF PULMONARY/[place] [address] Chronic respiratory failure with hypoxia [...] COVID-19? No / Unsure 09/28/2020 1:10 PM PARENTING SKILLS INSTRUCTOR documented as of this encounter Functional Status [...] st Contact Info) Description 08/26/2024 11:00 AM PARENTING SKILLS INSTRUCTOR Office Visit [facility] - Pulmonology [address] [place] [address], [place] [address] Andrew Francis MD [address] [place] [address] DIV OF PULMONARY/[place] [address] documented as of this encounter Procedures Procedure Name Priority Date/Time Associated Diagnosis Comments ECHO COMPLETE W BUBBLE STUDY Routine 11/16/2020 9:52 AM CDT Chronic respiratory failure with hypoxia (HCC) documented in this encounter Results * ECHO COMPLETE W BUBBLE STUDY (11/16/2020 9:52 AM CDT) Anatomical Region Laterality Modality Chest Echo 11/16/2020 9:14 AM CDT Narrative Procedure Note Jefe Luna MD - 11/16/2020 Andrew Francis MD ECHOCARDIOGRAPHY RAD IANT documented in this encounter Visit Diagnoses Diagnosis Chronic respiratory failure with hypoxia (HCC) Chronic respiratory failure Chronic respiratory failure with hypoxia (HCC) Chronic respiratory failure documented in this encounter Additional Health Concerns Infection Onset Date Last Indicated Resolved Time COVID-19 Confirmed 09/28/2020 09/28/2020 4:33 AM PARENTING SKILLS INSTRUCTOR documented as of this encounter Care Teams Electrical Contractor Relationship Specialty Start Date End Date Ran Nuñez MD [address] [place] [address] PCP - General Family Medicine 03/22/19 12/22/20 Hillary Apple MD [address] [place] [address] Hematology and Oncology 03/17/19 Bill Ferrera MD [address] [place] [address] Hematology and Oncology 03/17/19 08/27/21 Tony Dumont MD [address] [place] [address] Hematology and Oncology 03/17/19 Maryjo Reinoso, ARMORED VEHICLE OFFICER Wax Molder 03/17/19 Madyson Clay, PharmD 03/17/19 Dana Lala, FRONT END ENGINEER-NATURAL GAS BASIS TRADER [address] [place] [address] 2nd [place] [address] Oncology 03/17/19 Tiffanie Nguyen, FRONT END ENGINEER-BONE DRIER OPERATOR [address] [place], [place] [address] 2nd [place] [address] Family Medicine 03/17/19 Stephanie Mahoney, RN Registered Nurse 03/17/19 10/29/21 Alycia Galvan, ROSEMARY 03/17/19 10/29/21 Cesar Tavares MD [address] [place] [address] Referring Physician Medical Oncology 03/23/19 Karie Jones, RN Registered Nurse 06/08/19 10/29/21 Joy Bob 09/22/19 Addison Shea, PharmD Pharmacist 09/22/19 10/29/21 documented as of this encounter
--- OUTSIDE RECORDS SUMMARY | 2024-08-18 00:24 | XMS_ITS | Encounter Summary ---
Author Organization [facility] Address [address] [place] [address] Care Team Providers Care Web Applications Administrator Name Role Phone Hillary Apple MD Unavailable [phone] Bill Ferrera MD Unavailable [phone] Tony Dumont MD Unavailable [phone] Maryjo Reinoso [facility] Unavailable Unavailable Madyson Clay PharmD Unavailable Unavaila Dana Galicia MANAGER PLANNING-DATA INPUT CLERK Unavailable [phone] Tiffanie Nguyen MANAGER PLANNING-RN LABOR DELIVERY Unavailable [phone] Stephanie Mahoney RN Unavailable Unavailable Alycia Galvan RN Unavailable UnavailRan Mejía MD Primary Care Provider Cesar Tavares MD Unavailable [phone] Karie Jones RN Unavailable Unavailable Joy Bob Unavailable Fanta Addison Weinstein PharmD Unavailable Unavailab le Reason for Referral * Radiology Services (Routine) - Closed Specialty Diagnoses / Procedures Referred By Contac t Referred To Contact Echosonography Diagnoses Chronic respiratory failure with hypoxia (HCC) Procedures ECHO COMPLETE W BUBBLE STUDY Andrew Francis MD [address] [facility] 2L DIV OF PULMONARY/[place] [address] [facility] Echo [address] [place] [address] Referral ID Status Reason Start Date Expiration Date Visits Re quested Visits Authorized [id number] Closed 09/28/2020 09/28/2021 1 1 OR PROGRAM MANAGER Encounter Details Date Type Department Care Team (Latest Contact Info) Description 09/28/2020 Ambulatory Consult [facility] Pulmonary, Critical Care and Sleep Medicine [address] [facility], [place] [address] Andrew Francis MD [address] [facility] 2L DIV OF PULMONARY/[place] [address] Chronic respiratory failure with hypoxia (HCC) Social [...] COVID-19? No / Unsure 09/28/2020 1:10 PM SENIOR PROGRAM MANAGER documented as of this encounter Functional [...] Progress Notes * Andrew Francis MD - 09/30/2020 6:46 PM CST BMT Pulmonary Behavioral Interventionist Note The patient is a 50 y/o [...] He last tested positive for COVID on 08/31/20. He remains on oxygen at this time using up to 6 L/min with activity. He denies SOB at rest but can only walk approximately 20 yrds before becoming SOB. He cannot afford Advair. He is using Albuterol approximately bid. He continues to have a non-productive cough. He has occasional wheezing. He denies chest pain, edema, fever, chills or night sweats. Per [place] of his CT chest, he has bilat GGOs, septal thickening/reticulations and emphysematous changes with traction bronchiectasis. 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 On Bendamustine and Gazyva. 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 Head: Normocephalic, without obvious abnormality, atraumatic. Eyes: Conjunctivae/corneas clear. EOMs intact. Ears: Normal [...] rashes or lesions Data: Reviewed. Impression: -- Persistent COVID-19 infection -- Hypoxic respiratory failure -- Previous reversible moderate obstructive ventilatory impairment -- Previous use of MJ blunts Recommendations: I wonder if the persistent GGOs indicate ongoing inflammation. I will obtain inflammatory markers to include sed rate, CRP, ferritin, d-dimer, BNP and troponin. I will obtain an Echowith bubble study. He does not need to use oxygen at rest, but should use 4 L/min with activity. I will see if he can afford Symbicort 160/4.5 mcg two puffs twice daily. I will see if Pulmonary Rehabcan be arranged. I would like to see him on return to clinic in 1 month. Andrew Francis M.D. Surgical Garment Fitter of Internal Medicine Division of Pulmonary, Critical Care and Sleep Medicine [facility] OR PROGRAM MANAGER documented in this encounter Plan of Treatment Upcoming Encounters Date Type Department Care Team (Late st Contact Info) Description 08/26/2024 11:00 AM SENIOR PROGRAM MANAGER Office Visit [facility] - Pulmonology [address] [place] [address], [place] [address] Andrew Francis MD [address] [place] [address] DIV OF PULMONARY/[place] [address] documented as of this encounter Results * ECHO COMPLETE W BUBBLE STUDY (11/16/2020 9:52 AM CDT) Anatomical Region Laterality Modality Chest Echo 11/16/2020 9:14 AM CDT Narrative Procedure Note Jefe Luna MD - 11/16/2020 Andrew Francis MD ECHOCARDIOGRAPHY RAD IANT * TROPONIN I (09/28/2020 3:02 PM SENIOR PROGRAM MANAGER) Troponin I <0.010 <0.032 ng/mL 09/28/2020 5:24 PM SENIOR PROGRAM MANAGER [facility] Blood BLOOD SPECIMEN / Unknown Venipuncture / Unknown 09/28/2020 3:02 PM SENIOR PROGRAM MANAGER 09/28/2020 4:20 PM SENIOR PROGRAM MANAGER Andrew Francis MD LAB - CHEMISTRY CINTHIA [place] Organization Address City/State/ZIP Co de Phone Number [facility] [address] [place] [phone], [facility] [phone] * (ABNORMAL) D-DIMER (09/28/2020 3:02 PM SENIOR PROGRAM MANAGER) D-Dimer Quantitative 0.67(H) <=0.50 mcg/mL FEU 09/28/2020 4:06 PM SENIOR PROGRAM MANAGER [facility] Comment: In the absence of clinical symptoms, [...] Unknown Venipuncture / Unknown 09/28/2020 3:02 PM SENIOR PROGRAM MANAGER 09/28/2020 4:06 PM SENIOR PROGRAM MANAGER Andrew Francis MD LAB - COAGULATION OR DERABLES [facility] [address] [place] [address], [place] [phone] * FERRITIN (09/28/2020 3:02 PM SENIOR PROGRAM MANAGER) Ferritin 93 22 - 275 ng/mL 09/28/2020 7:17 PM SENIOR PROGRAM MANAGER [facility] Blood BLOOD SPECIMEN / Unknown Venipuncture / Unknown 09/28/2020 3:02 PM SENIOR PROGRAM MANAGER 09/28/2020 6:48 PM SENIOR PROGRAM MANAGER Andrew Francis MD LAB - CHEMISTRY CINTHIA [place] Performing Organization Address [facility]/ZIP Co de Phone Number [address] [address], [facility] [phone] * (ABNORMAL) C-REACTIVE PROTEIN (09/28/2020 3:02 PM SENIOR PROGRAM MANAGER) [facility] C-Reactive Protein 0.9(H) <=0.5 mg/dL 09/28/2020 6:48 PM SENIOR PROGRAM MANAGER [facility] Blood BLOOD SPECIMEN / Unknown Venipuncture / Unknown 09/28/2020 3:02 PM SENIOR PROGRAM MANAGER 09/28/2020 6:48 PM SENIOR PROGRAM MANAGER Andrew Francis MD LAB - CHEMISTRY CINTHIA [place] Performing Organization Address [facility] Co de Phone Number [address] [address], [facility] [phone] * B-TYPE NATRIURETIC PEPTIDE (09/28/2020 2:28 PM SENIOR PROGRAM MANAGER) [facility] BNP <10 See Comment pg/mL 09/28/2020 7:55 PM SENIOR PROGRAM MANAGER [facility] Comment: A decision threshold of 100 pg/mL [...] Unknown Venipuncture / Unknown 09/28/2020 2:28 PM SENIOR PROGRAM MANAGER 09/28/2020 6:26 PM SENIOR PROGRAM MANAGER Andrew Francis MD LAB - CHEMISTRY CINTHIA [place] Performing Organization Address [facility] Co de Phone Number [facility] [address] [place] [address], [facility] [phone] * (ABNORMAL) ERYTHROCYTE SEDIMENTATION RATE (09/28/2020 2:28 PM SENIOR PROGRAM MANAGER) Erythrocyte Sedimentation Rate Arely 29(H) 0 - 20 MM/HR 09/28/2020 6:30 PM SENIOR PROGRAM MANAGER [facility] Blood BLOOD SPECIMEN / Unknown Venipuncture / Unknown 09/28/2020 2:28 PM SENIOR PROGRAM MANAGER 09/28/2020 6:26 PM SENIOR PROGRAM MANAGER Andrew Francis MD LAB - HEMATOLOGY ORD ERABLES [facility] Organization Address City/State/ZIP Co de Phone Number [facility] [address] [place] [address], [facility] [phone] documented in this encounter Visit Diagnoses Diagnosis Chronic respiratory failure with hypoxia (HCC)- Primary Chronic respiratory failure Chronic respiratory failure with hypoxia (HCC) Chronic respiratory failure documented in this encounter Additional Health Concerns Infection Onset Date Last Indicated Resolved Time COVID-19 Confirmed 09/28/2020 09/28/2020 4:33 AM SENIOR PROGRAM MANAGER documented as of this encounter Care Teams Web Applications Administrator Relationship Specialty Start Date End Date Ran Nuñez MD [address] [place] [address] PCP - General Family Medicine 03/22/19 12/22/20 Hillary Apple MD [address] [place] [address] Hematology and Oncology 03/17/19 Blil Ferrera MD [address] [place] [address] Hematology and Oncology 03/17/19 08/27/21 Tony Dumont MD [address] [place] [address] Hematology and Oncology 03/17/19 Maryjo Reinoso, INSTITUTIONAL COOK Precision Printing Worker 03/17/19 Madyson Clay, PharmD 03/17/19 Dana Lala APRN-DATA INPUT CLERK [address] 2nd [place] [address] Oncology 03/17/19 Tiffanie Nguyen APRN-RN LABOR DELIVERY [address] 2nd [place] [address] Family Medicine 03/17/19 Stephanie Mahoney, RN Registered Nurse 03/17/19 10/29/21 Alycia Galvan, RN 03/17/19 10/29/21 Cesar Tavares MD [address] [facility] [place] [address] Referring Physician Medical Oncology 03/23/19 Karie Jones, RN Registered Nurse 06/08/19 10/29/21 Joy Bob 09/22/19 Addison Shea, PharmD Pharmacist 09/22/19 10/29/21 documented as of this encounter
--- OUTSIDE RECORDS SUMMARY | 2024-08-18 00:24 | XMS_ITS | Encounter Summary ---
Author Organization [facility] Address [address] [place] [address] Care Team Providers Care Classifier Name Role Phone Hillary Apple MD Unavailable [phone] Bill Ferrera MD Unavailable [phone] Tony Dumont MD Unavailable [phone] Maryjo Reinoso [facility] Unavailable Unavailable Madyson Clay PharmD Unavailable Unavaila Dana Galicia INVENTORY CONTROL CLERK-PNEUMATIC TUBE REPAIRER Unavailable [phone] Tiffanie Nguyen INVENTORY CONTROL CLERK-NEWS PRODUCER Unavailable [phone] Stephanie Mahoney RN Unavailable Unavailable Alycia Galvan RN Unavailable UnavailRan Mejía MD Primary Care Provider Cesar Tavares MD Unavailable [phone] Karie Jones RN Unavailable Unavailable Joy Bob Unavailable Fanta Addison Weinstein PharmD Unavailable Unavailab le Reason for Visit * Reason Onset Date Comments Cardiac Rehab 10/27/2020 Encounter Details Date Type Department Care Team (Late st Contact Info) Description 10/27/2020 Telephone [facility] - Cardiopulmonary Rehab [address] [place] [address] Susan Dickerson RN Cardiac Rehab Social History Tobacco Use Types Packs/Day Years [...] COVID-19? No / Unsure 09/28/2020 1:10 PM CURATOR OF MANUSCRIPTS documented as of this encounter Functional Status [...] encounter Miscellaneous Notes * Telephone Encounter - Susan Franco RN - 10/27/2020 9:30 AM CDT Cardiopulmonary Rehab: Called patient to check in, to see how he was feeling, and to see if he was ready to start pulmonary rehab. Left voicemail on machine with contact information. documented in this encounter Plan of Treatment Upcoming Encounters Date Type Department Care Team (Late st Contact Info) Description 08/26/2024 11:00 AM CURATOR OF MANUSCRIPTS Office Visit [facility] - Pulmonology [address] [place] [address], [place] [address] Andrew Francis MD [address] [place] [address] 2L DIV OF PULMONARY/[place] [address] documented as of this encounter Visit Diagnoses Not on filedocumented in this encounter Care Teams Classifier Relationship Specialty Start Date End Date Ran Nuñez MD [address] [place] [address] PCP - General Family Medicine 03/22/19 12/22/20 Hillary Apple MD [facility] [place] [address] Hematology and Oncology 03/17/19 Bill Ferrera MD [address] [place] [address] Hematology and Oncology 03/17/19 08/27/21 Tony Dumont MD [address] [place] [address] Hematology and Oncology 03/17/19 Maryjo Reinoso, SUPERVISOR PIGMENT MAKING Receiver Stocker 03/17/19 Madyson Clay, PharmD 03/17/19 Dana Lala, INVENTORY CONTROL CLERK-PNEUMATIC TUBE REPAIRER [address] [facility] 2nd [place] [address] Oncology 03/17/19 Tiffanie Nguyen, INVENTORY CONTROL CLERK-NEWS PRODUCER [address] [place], [place] [address]TA [facility] 2nd [place] [address] Family Medicine 03/17/19 Stephanie Mahoney, RN Registered Nurse 03/17/19 10/29/21 Alycia Galvan, ROSEMARY 03/17/19 10/29/21 Cesar Tavares MD [address] [place] [address] Referring Physician Medical Oncology 03/23/19 Karie Jones, RN Registered Nurse 06/08/19 10/29/21 Joy Bob 09/22/19 Addison Shea, PharmD Pharmacist 09/22/19 10/29/21 documented as of this encounter
--- OUTSIDE RECORDS SUMMARY | 2024-08-18 00:24 | XMS_ITS | Encounter Summary ---
Author Organization [facility] Address [address] [facility] [place] [address] Care Team Providers Care Occupational Therapist Per Diem Name Role Phone Hillary Apple MD Unavailable [phone] Bill Ferrera MD Unavailable [phone] Tony Dumont MD Unavailable [phone] Maryjo Reinoso [facility] Unavailable Unavailable Madyson Clay PharmD Unavailable Unavaila Dana Galicia TOOL DRESSER-POWER PLANT OPERATIONS MANAGER Unavailable [phone] Tiffanie Nguyen TOOL DRESSER-HARNESS REPAIRER Unavailable [phone] Stephanie Mahoney RN Unavailable Unavailable Alycia Galvan RN Unavailable UnavailRan Mejía MD Primary Care Provider Cesar Tavares MD Unavailable [phone] Karie Jones RN Unavailable Unavailable Joy Bob Unavailable Fanta Addison Weinstein PharmD Unavailable Unavailab Alida Chang TOOL DRESSER-HARNESS REPAIRER Primary Care Provider Ran Nuñez MD Primary Care Provider Tony Dumont MD Unavailable [phone] Shalini Segal MD Unavailable [phone] Stefanie Burns RN Unavailable Unavaila Fatemeh Kelly RN Unavailable Unavailable Glenn Hernandez MD Unavailable Chandana Lu MD Unavailable Reason for Visit * Reason Onset Date Comments MEDICATION REFILL 10/02/2020 Encounter Details Date Type Department Care Team ([facility] Contact Info) Description 10/02/2020 Refill [facility] [address] [place] [address] Hillary Apple MD [address] [facility] [place] [address] MEDICATION REFILL Social History Tobacco Use Types [...] COVID-19? No / Unsure 09/28/2020 1:10 PM USED CAR LOT ATTENDANT documented as of this encounter Functional Status [...] Upcoming Encounters Date Type Department Care Team ([facility] Contact Info) Description 08/26/2024 11:00 AM USED CAR LOT ATTENDANT Office Visit [facility] - Pulmonology [address] [facility], [place] [address] Andrew Francis MD [address] [facility] 2L DIV OF PULMONARY/[place] [address] documented as of this encounter Visit Diagnoses Not on filedocumented in this encounter Additional Health Concerns Infection Onset Date Last Indicated Resolved Time COVID-19 Confirmed 09/28/2020 09/28/2020 4:33 AM USED CAR LOT ATTENDANT COVID-19 Under Investigation 11/16/2020 11/16/2020 11/16/2020 6:52 PM CDT COVID-19 Confirmed 11/16/2020 11/16/2020 4:35 AM CDT COVID-19 Under Investigation 12/20/2020 12/20/2020 12/20/2020 6:23 PM CDT COVID-19 Under Investigation 04/21/2021 04/21/2021 2021 6:42 AM CDT documented as of this encounter Care Teams Occupational Therapist Per Diem Relationship Specialty Start Date End Date Ran Nuñez MD [address] [place] [address] PCP - General Family Medicine 03/22/19 12/22/20 Alida Marshall APRN-HARNESS REPAIRER [address] [facility] [place] [address] PCP - General Family Medicine 12/23/20 08/29/21 Ran Nuñez MD [address] [place] [address] PCP - General Family Medicine 08/30/21 [place] [address] [facility] [place] [address] PCP - Attributed-[facility] 03/04/23 08/21/23 Hillary Apple MD [facility] [place] [address] Hematology and Oncology 03/17/19 Bill Ferrera MD [address] [place] [address] Hematology and Oncology 03/17/19 08/27/21 Tony Dumont MD [facility] [place] [address] Hematology and Oncology 03/17/19 Maryjo Reinoso, [facility] Ice House Supervisor 03/17/19 Madyson Clay, PharmD 03/17/19 Dana Lala, TOOL DRESSER-POWER PLANT OPERATIONS MANAGER [address] [place] [address] 2nd [place] [address] Oncology 03/17/19 Tiffanie Nguyen, TOOL DRESSER-HARNESS REPAIRER [address] [place] [address] 2nd [place] [address] Family Medicine 03/17/19 Stephanie Mahoney, RN Registered Nurse 03/17/19 10/29/21 Alycia Galvan, ROSEMARY 03/17/19 10/29/21 Cesar Tavares MD [address] [place] [address] Referring Physician Medical Oncology 03/23/19 Karie Jones, RN Registered Nurse 06/08/19 10/29/21 Joy Bob 09/22/19 Addison Shea, PharmD Pharmacist 09/22/19 10/29/21 Tony Dumont MD [address] [place] [address] Hematology and Oncology 10/30/21 Shalini Segal MD [address] [facility] [place] [address] Division Commander/Oncologis t Hematology and Oncology 10/30/21 Stefanie Burns, ROSEMARY Registered Nurse 10/30/21 Fatemeh Bolaños, RN Registered Nurse 10/30/21 Chandana Lu MD [address] [place] [address] Orthopedic Surgery 03/30/24 documented as of this encounter
--- OUTSIDE RECORDS SUMMARY | 2024-08-18 00:24 | XMS_ITS | Encounter Summary ---
Author Organization [facility] Address [address] [facility] [place] [address] Care Team Providers Care Special Procedures Technologist Name Role Phone Hillary pAple MD Unavailable [phone] Bill Ferrera MD Unavailable [phone] Tony Dumont MD Unavailable [phone] Maryjo Reinoso [facility] Unavailable Unavailable Madyson Clay PharmD Unavailable Unavaila Dana Galicia SUPERVISOR SELF SERVICE STORE-BELTING CUTTER Unavailable [phone] Tiffanie Nguyen APRN-MANAGER TELEMETRY Unavailable Stephanie Mahoney RN Unavailable Unavailable Alycia Galvan RN Unavailable UnavailRan Mejía MD Primary Care Provider Cesar Tavares MD Unavailable [phone] Karie Jones RN Unavailable Unavailable Joy Bob Unavailable Fanta Addison Weinstein PharmD Unavailable Unavailab le Encounter Details Date Type Department Care Team (Late st Contact Info) Description 10/05/2020 Orders Only [facility] [address] [place] [address] Tiffanie Nguyen APRN-MANAGER TELEMETRY [address] [place] [address] History of COVID-19 Social History Tobacco Use Types Packs/Day Years [...] COVID-19? No / Unsure 09/28/2020 1:10 PM ROOFER HELPER documented as of this encounter Functional Status [...] st Contact Info) Description 08/26/2024 11:00 AM ROOFER HELPER Office Visit [facility] Physician Group - Pulmonology [address] [place] [address], [place] [address] Andrew Francis MD [address] [place] [address] DIV OF PULMONARY/[place] [address] documented as of this encounter Visit Diagnoses Diagnosis History of COVID-19- Primary documented in this encounter Additional Health Concerns Infection Onset Date Last Indicated Resolved Time COVID-19 Confirmed 09/28/2020 09/28/2020 4:33 AM ROOFER HELPER documented as of this encounter Care Teams Special Procedures Technologist Relationship Specialty Start Date End Date Ran Nuñez MD [address] [place] [address] PCP - General Family Medicine 03/22/19 12/22/20 Hillary Apple MD [address] [place] [address] Hematology and Oncology 03/17/19 Bill Ferrera MD [address] [place] [address] Hematology and Oncology 03/17/19 08/27/21 Tony Dumont MD [address] [place] [address] Hematology and Oncology 03/17/19 Maryjo Reinoso, CHARGING CAR OPERATOR [place] Supervisor 03/17/19 Madyson Clay, PharmD 03/17/19 Dana Lala, SUPERVISOR SELF SERVICE STORE-BELTING CUTTER [address] [place] [address] 2nd [place] [address] Oncology 03/17/19 Tiffanie Nguyen, SUPERVISOR SELF SERVICE STORE-MANAGER TELEMETRY [address] [place] [address] 2nd [place] [address] Family Medicine 03/17/19 Stephanie Mahoney, RN Registered Nurse 03/17/19 10/29/21 Alycia Galvan, RN 03/17/19 10/29/21 Cesar Tavares MD [address] [place] [address] [place] [address] Referring Physician Medical Oncology 03/23/19 Karie Jones, RN Registered Nurse 06/08/19 10/29/21 Joy Bob 09/22/19 Addison Shea, PharmD Pharmacist 09/22/19 10/29/21 documented as of this encounter
--- OUTSIDE RECORDS SUMMARY | 2024-08-18 00:24 | XMS_ITS | Encounter Summary ---
Author Organization [facility] Address [address] [facility] [place] [address] Care Team Providers Care Boot Repairer Name Role Phone Hillary Apple MD Unavailable [phone] Bill Ferrera MD Unavailable [phone] Tony Dumont MD Unavailable [phone] Maryjo Reinoso [facility] Unavailable Unavailable Madyson Clay PharmD Unavailable Unavaila Dana Galicia FISH NET MAKER-911 EMERGENCY SERVICES DISPATCHER Unavailable [phone] Tiffanie Nguyen FISH NET MAKER-POULTRY EVISCERATOR Unavailable [phone] Stephanie Mahoney RN Unavailable Unavailable Alycia Galvan RN Unavailable UnavailRan Mejía MD Primary Care Provider Cesar Tavares MD Unavailable [phone] Karie Jones RN Unavailable Unavailable Joy Bob Unavailable Fanta Addison Weinstein PharmD Unavailable Unavailab le Encounter Details Date Type Department Care Team (Latest Contact Info) Description 09/28/2020 1:51 PM CAR SEAT COVERER - 09/28/2020 11:59 PM CAR SEAT COVERER Hospital Encounter [facility] [address] [place] [address] Andrew Francis MD [address] 2L DIV OF PULMONARY/[place] [address] Discharge Disposition: Home or Self Care Social [...] COVID-19? No / Unsure 09/28/2020 1:10 PM CAR SEAT COVERER documented as of this encounter Functional Status [...] (OCEAN; BABY AYR) 0.65 % nasal spray [facility] 2 sprays into each nostril every 2 [...] Contact Info) Description 08/26/2024 11:00 AM CAR SEAT COVERER Office Visit [facility] Physician [facility] - Pulmonology [address] [place] [address], [facility] [place] [address] Andrew Francis MD [address] [place] [address] DIV OF PULMONARY/[place] [address] documented as of this encounter Visit Diagnoses Not on filedocumented in this encounter Additional Health Concerns Infection Onset Date Last Indicated Resolved Time COVID-19 Confirmed 09/28/2020 09/28/2020 4:33 AM CAR SEAT COVERER documented as of this encounter Care Teams Boot Repairer Relationship Specialty Start Date End Date Ran Nuñez MD [address] [place] [address] PCP - General Family Medicine 03/22/19 12/22/20 Hillary Apple MD [address] [place] [address] Hematology and Oncology 03/17/19 Bill Ferrera MD [address] [place] [address] Hematology and Oncology 03/17/19 08/27/21 Tony Dumont MD [address] [place] [address] Hematology and Oncology 03/17/19 Maryjo Reinoso LCSW Risk Engineer 03/17/19 Madyson Clay, PharmD 03/17/19 Dana Lala, FISH NET MAKER-911 EMERGENCY SERVICES DISPATCHER [address] [facility] 2nd [place] [address] Oncology 03/17/19 Tiffanie Nguyen, FISH NET MAKER-POULTRY EVISCERATOR [address] [place] [address] Family Medicine 03/17/19 Stephanie Mahoney, RN Registered Nurse 03/17/19 10/29/21 Alycia Galvan, ROSEMARY 03/17/19 10/29/21 Cesar Tavares MD [address] [place] [place] [address] Referring Physician Medical Oncology 03/23/19 Karie Jones, RN Registered Nurse 06/08/19 10/29/21 Joy Bob 09/22/19 Add[place] Shea, PharmD Pharmacist 09/22/19 10/29/21 documented as of this encounter
--- OUTSIDE RECORDS SUMMARY | 2024-08-18 00:24 | XMS_ITS | Encounter Summary ---
Author Organization [facility] Address [address] [place] [address] Care Team Providers Care Dental Chairside Assistant Name Role Phone Hillary Apple MD Unavailable [phone] Bill Ferrera MD Unavailable [phone] Tony Dumont MD Unavailable [phone] Maryjo Reinoso [facility] Unavailable Unavailable Madyson Clay PharmD Unavailable Unavaila Dana Galicia PAYROLL SERVICES ANALYST-BEEF SKINNER Unavailable [phone] Tiffanie Nguyen APRN-FILTERING MACHINE TENDER HELPER Unavailable [phone] Stephanie Mahoney RN Unavailable Unavailable Alycia Galvan RN Unavailable UnavailRan Mejía MD Primary Care Provider Cesar Tavares MD Unavailable [phone] Karie Jones RN Unavailable Unavailable Joy Bob Unavailable Fanta Addison Weinstein PharmD Unavailable Unavailab le Reason for Visit * Reason Comments Refill Request Encounter Details Date Type Department Care Team (Late st Contact Info) Description 09/29/2020 Refill [facility] [address] [place] [address] Tiffanie Nguyen APRN-FILTERING MACHINE TENDER HELPER [address] [place] [id number] Refill Request Social History Tobacco Use Types [...] COVID-19? No / Unsure 09/28/2020 1:10 PM TEXTILE EXAMINER documented as of this encounter Functional [...] Contact Info) Description 08/26/2024 11:00 AM TEXTILE EXAMINER Office Visit [facility] Physician [facility] - Pulmonology [address] [place] [address], [place] [address] Andrew Francis MD [address] [place] [address] 2L DIV OF PULMONARY/[place] [address] documented as of this encounter Visit Diagnoses Not on filedocumented in this encounter Additional Health Concerns Infection Onset Date Last Indicated Resolved Time COVID-19 Confirmed 09/28/2020 09/28/2020 4:33 AM TEXTILE EXAMINER documented as of this encounter Care Teams Dental Chairside Assistant Relationship Specialty Start Date End Date Ran Nuñez MD [address] [place] [address] PCP - General Family Medicine 03/22/19 12/22/20 Hillary Apple MD [address] [place] [address] Hematology and Oncology 03/17/19 Bill Ferrera MD [address] [place] [address] Hematology and Oncology 03/17/19 08/27/21 Tony Dumont MD [address] [place] [address] Hematology and Oncology 03/17/19 Maryjo Reinoso, BIRD TENDER Press Brake Operator 03/17/19 Madyson Clay, PharmD 03/17/19 Dana Lala, PAYROLL SERVICES ANALYST-BEEF SKINNER [address] [place] [address] 2nd [place] [address] Oncology 03/17/19 Tiffanie Nguyen, PAYROLL SERVICES ANALYST-FILTERING MACHINE TENDER HELPER [address] [place] [address] 2nd [place] [address] Family Medicine 03/17/19 Stephanie Mahoney, RN Registered Nurse 03/17/19 10/29/21 Alycia Galvan, ROSEMARY 03/17/19 10/29/21 Cesar Tavares MD [address] [place] [address] [place] [address] Referring Physician Medical Oncology 03/23/19 Karie Jones, RN Registered Nurse 06/08/19 10/29/21 Joy Bob 09/22/19 Add[place] Shea, PharmD Pharmacist 09/22/19 10/29/21 documented as of this encounter
--- OUTSIDE RECORDS SUMMARY | 2024-08-18 00:24 | XMS_ITS | Encounter Summary ---
Author Organization [facility] Address [address] [facility] [place] [address] Care Team Providers Care Crime Laboratory Analyst Name Role Phone Hillary Apple MD Unavailable [phone] Bill Ferrera MD Unavailable [phone] Tony Dumont MD Unavailable [phone] Maryjo Reinoso [facility] Unavailable Unavailable Madyson Clay PharmD Unavailable Unavaila Dana Galicia CORNICE UPHOLSTERER-ALTERATION INSPECTOR Unavailable [phone] Tiffanie Nguyen CORNICE UPHOLSTERER-SCRAPER LOADER OPERATOR Unavailable [phone] Stephanie Mahoney RN Unavailable Unavailable Alycia Galvan RN Unavailable UnavailRan Mejía MD Primary Care Provider Cesar Tavares MD Unavailable [phone] Karie Jones RN Unavailable Unavailable Joy Bob Unavailable Fanta Addison Weinsteni PharmD Unavailable Unavailab le Encounter Details Date Type Department Care Team (Latest Contact Info) Description 08/31/2020 1:48 PM FRENCH EDGE OPERATOR - 08/31/2020 11:59 PM FRENCH EDGE OPERATOR Hospital Encounter [facility] [address] [place] [address] Andrew Francis MD [address] 2L DIV OF PULMONARY/[place] [address] Discharge Disposition: Home or Self Care Social [...] times daily 360 tablet 3 06/07/2020 11/28/2020 clonazePAM (KLONOPIN) 0.5 MG tablet TAKE 1 TABLET BY MOUTH EVERY NIGHT NEEDED FOR ANXIETY 30 tablet 08/10/2020 09/28/2020 diclofenac sodium EC (VOLTAREN) 75 MG tablet [...] tablet Take 1 tablet by mouth every 12 hours as needed for Pain 60 tablet 08/10/2020 09/04/2020 oxyCODONE, immediate release, (ROXICODONE) 5 MG tablet Take 1 tablet by mouth every 8 hours as needed for Pain 60 tablet 06/16/2020 09/04/2020 penicillin v potassium (VEETIDS) 250 MG tabletIndications:Di [...] (OCEAN; BABY AYR) 0.65 % nasal spray [place] 2 sprays into each nostril every 2 [...] st Contact Info) Description 08/26/2024 11:00 AM FRENCH EDGE OPERATOR Office Visit [facility] Physician Group - Pulmonology [address] [place] [address], [place] [address] Andrew Francis MD [address] [place] [address] DIV OF PULMONARY/[place] [address] documented as of this encounter Visit Diagnoses Not on filedocumented in this encounter Additional Health Concerns Infection Onset Date Last Indicated Resolved Time COVID-19 Confirmed 08/31/2020 08/31/2020 4:34 AM FRENCH EDGE OPERATOR documented as of this encounter Care Teams Crime Laboratory Analyst Relationship Specialty Start Date End Date Ran Nuñez MD [address] [facility] [place] [address] PCP - General Family Medicine 03/22/19 12/22/20 Hillary Apple MD [address] [place] [address] Hematology and Oncology 03/17/19 Bill Ferrera MD [address] [place] [address] Hematology and Oncology 03/17/19 08/27/21 Tony Dumont MD [facility] [place] [address] Hematology and Oncology 03/17/19 Maryjo Reinoso, JAVA DEVELOPER ANALYST Group Worker 03/17/19 Madyson Clay, PharmD 03/17/19 Dana Lala, CORNICE UPHOLSTERER-ALTERATION INSPECTOR [address] [place] [address] Oncology 03/17/19 Tiffanie Nguyen, CORNICE UPHOLSTERER-SCRAPER LOADER OPERATOR [address] [address] Family Medicine 03/17/19 Stephanie Mahoney, RN Registered Nurse 03/17/19 10/29/21 Alycia Galvan, ROSEMARY 03/17/19 10/29/21 Cesar Tavares MD [address] [place] [address] Referring Physician Medical Oncology 03/23/19 Karie Jones, RN Registered Nurse 06/08/19 10/29/21 Joy Bob 09/22/19 Addison Shea, PharmD Pharmacist 09/22/19 10/29/21 documented as of this encounter
--- OUTSIDE RECORDS SUMMARY | 2024-08-18 00:24 | XMS_ITS | Encounter Summary ---
Author Organization [facility] Address [address] [facility] [place] [address] Care Team Providers Care Geothermal Operations Manager Name Role Phone Hillary Apple MD Unavailable [phone] Bill Ferrera MD Unavailable [phone] Tony Dumont MD Unavailable [phone] Maryjo Reinoso [facility] Unavailable Unavailable Madyson Clay PharmD Unavailable Unavaila Dana Galicia ENTERPRISE APPLICATIONS MANAGER-BANNER PAINTER Unavailable [phone] Tiffanie Nguyen APRN-BOILER SERVICE TECHNICIAN Unavailable [phone] Stephanie Mahoney RN Unavailable Unavailable Alycia Galvan RN Unavailable UnavailRan Mejía MD Primary Care Provider Cesar Tavares MD Unavailable [phone] Karie Jones RN Unavailable Unavailable Joy Bob Unavailable Fanta Addison Weinstein PharmD Unavailable Unavailab le Encounter Details Date Type Department Care Team (Late st Contact Info) Description 11/03/2020 Orders Only [facility] [address] [place] [address] Tiffanie Nguyen APRN-BOILER SERVICE TECHNICIAN [address] [place] [address] Social History Tobacco Use Types Packs/Day Years [...] st Contact Info) Description 08/26/2024 11:00 AM UMBRELLA TIPPER HAND Office Visit [facility] - Pulmonology [address] [place] [address], [place] [address] Andrew Francis MD [address] [place] [address] 2L DIV OF PULMONARY/[place] [address] documented as of this encounter Visit Diagnoses Not on filedocumented in this encounter Care Teams Geothermal Operations Manager Relationship Specialty Start Date End Date Ran Nuñez MD [address] [place] [address] PCP - General Family Medicine 03/22/19 12/22/20 Hillary Apple MD [address] [place] [address] Hematology and Oncology 03/17/19 Bill Ferrera MD [address] [place] [address] Hematology and Oncology 03/17/19 08/27/21 Tony Dumont MD [address] [place] [address] Hematology and Oncology 03/17/19 Maryjo Reinoso, REYNA Seo Associate 03/17/19 Madyson Clay, PharmD 03/17/19 Dana Lala, ENTERPRISE APPLICATIONS MANAGER-BANNER PAINTER [address] [facility] 2[place] [address] Oncology 03/17/19 Tiffanie Nguyen, ENTERPRISE APPLICATIONS MANAGER-BOILER SERVICE TECHNICIAN [address] [facility] 2nd [place] [address] Family Medicine 03/17/19 Stephanie Mahoney, RN Registered Nurse 03/17/19 10/29/21 Alycia Galvan, ROSEMARY 03/17/19 10/29/21 Cesar Tavares MD [address] [place] [address] [place] [address] Referring Physician Medical Oncology 03/23/19 Karei Jones, RN Registered Nurse 06/08/19 10/29/21 Joy Bob 09/22/19 Addison Shea, PharmD Pharmacist 09/22/19 10/29/21 documented as of this encounter
--- OUTSIDE RECORDS SUMMARY | 2024-08-18 00:24 | XMS_ITS | Encounter Summary ---
Author Organization [facility] Address [address] [facility] [place] [address] Care Team Providers Care Legend Maker Name Role Phone Hillary Apple MD Unavailable [phone] Bill Ferrera MD Unavailable [phone] Tony Dumont MD Unavailable [phone] Maryjo Reinoso [facility] Unavailable Unavailable Madyson Clay PharmD Unavailable Unavaila Dana Galicia DUMP TRUCK DRIVER OFF HIGHWAY-TELEGRAPH OFFICE MANAGER Unavailable [phone] Tiffanie Nguyen APRN-QUICKBOOKS BOOKKEEPER Unavailable [phone] Stephanie Mahoney RN Unavailable Unavailable Alycia Galvan RN Unavailable UnavailRan Mejía MD Primary Care Provider Cesar Tavares MD Unavailable [phone] Karie Jones RN Unavailable Unavailable Joy Bob Unavailable Fanta Addison Weinstein PharmD Unavailable Unavailab campbell Reason for Visit * Reason Onset Date Comments MEDICATION REFILL 10/01/2020 Encounter Details Date Type Department Care Team (Late st Contact Info) Description 10/01/2020 Refill [facility] [address] [place] [address] Tiffanie Nguyen APRN-QUICKBOOKS BOOKKEEPER [address] [place] [address] MEDICATION REFILL Social History Tobacco Use Types [...] COVID-19? No / Unsure 09/28/2020 1:10 PM PROPOSAL EDITOR documented as of this encounter Functional Status [...] st Contact Info) Description 08/26/2024 11:00 AM PROPOSAL EDITOR Office Visit [facility] - Pulmonology [address] [place] [address], [place] [address] Andrew Francis MD [address] [place] [address] 2L DIV OF PULMONARY/[place] [address] documented as of this encounter Visit Diagnoses Not on filedocumented in this encounter Additional Health Concerns Infection Onset Date Last Indicated Resolved Time COVID-19 Confirmed 09/28/2020 09/28/2020 4:33 AM PROPOSAL EDITOR documented as of this encounter Care Teams Legend Maker Relationship Specialty Start Date End Date Ran Nuñez MD [address] [place] [address] PCP - General Family Medicine 03/22/19 12/22/20 Hillary Apple MD [address] [place] [address] Hematology and Oncology 03/17/19 Bill Ferrera MD [address] [place] [address] Hematology and Oncology 03/17/19 08/27/21 Tony Dumont MD [address] [place] [address] Hematology and Oncology 03/17/19 Maryjo Reinoso, ANGULAR JS DEVELOPER Air Conditioning Equipment Mechanic 03/17/19 Madyson Clay, PharmD 03/17/19 Dana Lala, DUMP TRUCK DRIVER OFF HIGHWAY-TELEGRAPH OFFICE MANAGER [address] [place] [address] 2nd [place] [address] Oncology 03/17/19 Tiffanie Nguyen, DUMP TRUCK DRIVER OFF HIGHWAY-QUICKBOOKS BOOKKEEPER [address] [place] [address] 2nd [place] [address] Family Medicine 03/17/19 Stephanie Mahoney, RN Registered Nurse 03/17/19 10/29/21 Alycia Glavan, ROSEMARY 03/17/19 10/29/21 Cesar Tavares MD [address] [place] [address] Referring Physician Medical Oncology 03/23/19 Karie Jones, RN Registered Nurse 06/08/19 10/29/21 Joy Bob 09/22/19 Addison Shea, PharmD Pharmacist 09/22/19 10/29/21 documented as of this encounter
--- OUTSIDE RECORDS SUMMARY | 2024-08-18 00:24 | XMS_ITS | Encounter Summary ---
Author Organization [facility] Address [address] [facility] [place] [address] Care Team Providers Care Fur Cutter Name Role Phone Hillary Apple MD Unavailable [phone] Bill Ferrera MD Unavailable [phone] Tony Dumont MD Unavailable [phone] Maryjo Reinoso [facility] Unavailable Unavailable Madyson Clay PharmD Unavailable Unavaila Dana Galicia PHOTOVOLTAIC PANEL INSTALLER-NUMBERER AND WIRER Unavailable [phone] Tiffanie Nguyen PHOTOVOLTAIC PANEL INSTALLER-MANAGER PRACTICE Unavailable [phone] Stephanie Mahoney RN Unavailable Unavailable Alycia Galvan RN Unavailable UnavailRan Mejía MD Primary Care Provider Cesar Tavares MD Unavailable [phone] Karie Jones RN Unavailable Unavailable Joy Bob Unavailable Fanta Addison Weinstein PharmD Unavailable Unavailab le Encounter Details Date Type Department Care Team (Latest Contact Info) Description 08/31/2020 Ambulatory Consult [facility] Pulmonary, Critical Care and Sleep Medicine [address] [facility], [place] [address] Andrew Francis MD [address] [facility] 2L DIV OF PULMONARY/[place] [address] Acute respiratory failure with hypoxia (HCC) Social [...] Progress Notes * Andrew Francis MD - 08/31/2020 6:22 PM CST BMT Pulmonary Equipment Tester Note The patient is a 50 y/o [...] He last tested positive for COVID on 07/14/20. ID investigation suggested this was viable virus. He remains on oxygen at this time using up to 10 L/min with activity. He uses Advair 250/50 mcg bid and Albuterol as needed. He denies SOB at rest, but has marked dyspnea with minimal exertion. He continuesto have a non-productive cough. He has occasional wheezing. He denies chest pain, edema, fever, chills or night sweats. He does have persistent rhinorrhea and post-nasal gtt. 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 On Bendamustine and Gazyva. 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 With walking in place, his oxygen saturation dropped into the 70's on RA. With 4 L/min of oxygen he was able to maintain sats of 95% with walking. General: Alert, cooperative, no distress, appears stated [...] -- Previous use of MJ blunts Recommendations: At this time, I would like to have him undergo a repeat CT chest without contrast.If he now tests negative for COVID, I would like him to undergo PFTs with bronchodilator and ABG along with an oxygen titration. I have advised him that he does not need to use oxygen at rest, but should use 4 L/min with activity. He should continue to use Advair- 250/50 mcg bid and prn Albuterol. I would like to see him on return to clinic in 1 month. Andrew Francis M.D. Pest Control Service Representative of Internal Medicine Division of Pulmonary, Critical Care and Sleep Medicine [facility] TR[facility] documented in this encounter Plan of Treatment Upcoming Encounters Date Type Department Care Team (Late st Contact Info) Description 08/26/2024 11:00 AM GRID TRIMMER Office Visit [facility] - Pulmonology [address] [facility], [place] [address] Andrew Francis MD [address] [place] [address] 2L DIV OF PULMONARY/[place] [address] documented as of this encounter Visit Diagnoses Diagnosis Acute respiratory failure with hypoxia (HCC)- Primary Acute respiratory failure documented in this encounter Care Teams Fur Cutter Relationship Specialty Start Date End Date Ran Nuñez MD [address] [place] [address] PCP - General Family Medicine 03/22/19 12/22/20 Hillary Apple MD [address] [place] [address] Hematology and Oncology 03/17/19 Bill Ferrera MD [address] [place] [address] Hematology and Oncology 03/17/19 08/27/21 Tony Dumont MD [address] [place] [address] Hematology and Oncology 03/17/19 Maryjo Reinoso, DRYING MACHINE TENDER Health Equipment Servicer 03/17/19 Madyson Clay, PharmD 03/17/19 Dana Lala, PHOTOVOLTAIC PANEL INSTALLER-NUMBERER AND WIRER [facility] 2[place] [address] Oncology 03/17/19 Tiffanie Nguyen APRN-MANAGER PRACTICE [address] [place], [place] [address] 2[place] [address] Family Medicine 03/17/19 Stephanie Mahoney, RN Registered Nurse 03/17/19 10/29/21 Alycia Galvan, RN 03/17/19 10/29/21 Cesar Tavares MD [address] [place] [address] Referring Physician Medical Oncology 03/23/19 Karie Jones, ROSEMARY Registered Nurse 06/08/19 10/29/21 Joy Bob 09/22/19 Addison Shea, PharmD Pharmacist 09/22/19 10/29/21 documented as of this encounter
--- OUTSIDE RECORDS SUMMARY | 2024-08-18 00:24 | XMS_ITS | Encounter Summary ---
Author Organization [facility] Address [address] [place] [address] Care Team Providers Care Packaging Technician Name Role Phone Hillary Apple MD Unavailable [phone] Bill Ferrera MD Unavailable [phone] Tony Dumont MD Unavailable [phone] Maryjo Reinoso PARTS REMOVER Unavailable Unavailable Madyson Clay PharmD Unavailable Unavaila Dana Galicia PLANT OPERATIONS WORKER-INSTRUCTIONAL DEVELOPER Unavailable [phone] Tiffanie Nguyen APRN-FIREPROOF DOOR MAKER Unavailable [phone] Stephanie Mahoney RN Unavailable Unavailable Alycia Galvan RN Unavailable UnavailRan Mejía MD Primary Care Provider Cesar Tavares MD Unavailable [phone] Karie Jones RN Unavailable Unavailable Joy Bob Unavailable Fanta Addison Weinstein PharmD Unavailable Unavailab le Reason for Visit * Oncology Prior Authorization (Routine) - Closed Specialty Diagnoses / Procedures Referred By Contac t Referred To Contact Diagnoses B-cell lymphoma, unspecified B-cell lymphoma type, unspecified body region (HCC) S/P splenectomy Acute respiratory failure with hypoxia (HCC) Pneumonia due to COVID-19 virus Procedures [place] INJ IG GAMUNEX IV NONLYO 500 MG Tiffanie Nguyen APRN-FIREPROOF DOOR MAKER [address] [place] [address] [facility] [address] [place] [address] Referral ID Status Reason Start Date Expiration Date Visits Re quested Visits Authorized [id number] Closed 04/24/2020 04/24/2021 1 1 Encounter Details Date Type Department Care Team (Latest Contact Info) Description 08/31/2020 12:00 PM BEAMING MACHINE OPERATOR - 08/31/2020 1:47 PM BEAMING MACHINE OPERATOR Hospital Encounter [facility] [address] [place] [address] Tiffanie Nguyen, PLANT OPERATIONS WORKER-FIREPROOF DOOR MAKER [address] [place] [id number] Discharge Disposition: Home or Self Care Social [...] Sign Reading Time Taken Comments Blood Pressure 127/73 08/31/2020 1:03 PM BEAMING MACHINE OPERATOR Pulse 114 08/31/2020 1:03 PM BEAMING MACHINE OPERATOR Temperature 37.8 ??C (100 ??F) 08/31/2020 1:03 PM BEAMING MACHINE OPERATOR Respiratory Rate 18 08/31/2020 1:03 PM BEAMING MACHINE OPERATOR Oxygen Saturation 100% 08/31/2020 1:03 PM BEAMING MACHINE OPERATOR Inhaled Oxygen Concentration - - Weight - [...] (OCEAN; BABY AYR) 0.65 % nasal spray [place] 2 sprays into each nostril every 2 [...] 07/04/2020 11/03/2020 documented as of this encounter Progress Notes * Stefanie Burns, ROSEMARY - 08/31/2020 4:30 PM CST Patient presented today for re-vaccination following autologous hematopoetic stem cell transplant (Day 0: 10/20/2019). Reviewed titer history and planned immunizations with interdisciplinary team. No significant interactions noted among immunizations to be given today. 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 Patient afebrile today and without signs/symptoms of infection. Education provided on vaccines to be administered today, including necessity of re-vaccination after transplant, to report signs and symptoms of adverse reactions, and possible side effects of vaccinations including mild soreness at injection sites. Patient verbalized understanding and agreement. HiB, Prevnar, and Menveo vaccinations given and explained. Patient tolerated injections well. Due for next immunizations in next month; to be scheduled based on clinic follow up. 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 INTERVAL HISTORY: Aurelio presents to clinic via wheelchair, accompanied by sister O2 requirements remain about the same. 1-2 L at rest. With activity increases to 10L. Put O2 on 4L at night, mainly due to fact that he gets up to urinate Had one episode that he went to the bathroom, and upon recovery he discovered that O2 was 40% and HR 150s. Typical recovery is down to 60% SpO2, and HR 130-140. With these episodes, he continues to get migraines, requiring oxy 1-2 times per day Mood better with increased dose of lexapro, klonopin helps but asking for increased dose as he feels like he still has a hard time sleeping No F/C No cough Doesn't notice wheezing ROS: A comprehensive review of systems was negative except for: as noted above MEDICATIONS FOR CURRENT ENCOUNTER: Current Outpatient Medications Medication Sig ??? acetaminophen (TYLENOL) 325 MG tablet Take 1 tablet by mouth every 4 hours as needed Maximum allowable Acetaminophen amount = 4 Grams (4000 mg) / 24 hours. (Patient not taking: Reported on 06/16/2020) ??? acyclovir (ZOVIRAX) 400 MG tablet Take 2 tablets by mouth 2 times daily ??? albuterol HFA (PROVENTIL;VENTOLIN;PROAIR) 108 (90 Base) MCG/ACT inhaler Inhale 2 puffs by mouthevery 4 hours (Patient not taking: Reported on 08/31/2020) ??? clonazePAM (KLONOPIN) 0.5 MG tablet TAKE 1 TABLET BY MOUTH EVERY NIGHT NEEDED FOR ANXIETY ??? diclofenac sodium EC (VOLTAREN) 75 MG tablet TK 1 T PO BID PRF PAIN ??? escitalopram (LEXAPRO) 20 MG tablet Take 1 tablet by mouth once daily ??? ferrous sulfate 325 (65 FE) MG tablet Take 1 tablet by mouth once daily ??? fluticasone propionate (FLONASE) 50 MCG/ACT nasal spray 2 SPRAYS IN EACH NOSTRIL Q DAY ??? fluticasone-salmeterol (ADVAIR/WIXELA) 250-50 MCG/DOSE inhaler Inhale 1 puff by mouth 2 times daily ??? multivitamin daily tablet Take 1 tablet by mouth daily with food ??? ondansetron, disintegrating, (ZOFRAN ODT) 8 MG tablet Dissolve 1 tablet on top of tongue then swallow with saliva every 8 hours as needed for nausea or vomiting ??? oxyCODONE, immediate release, (ROXICODONE) 5 MG tablet Take 1 tablet by mouth every 12 hours asneeded for Pain ??? oxyCODONE, immediate release, (ROXICODONE) 5 MG tablet Take 1 tablet by mouth every 8 hours as needed for Pain (Patient not taking: Reported on 08/31/2020) ??? penicillin v potassium (VEETIDS) 250 MG tablet Take 1 tablet by mouth 2 times daily ??? prochlorperazine (COMPAZINE) 10 MG tablet Take 10 mg by mouth every 6 hours as needed ??? rOPINIRole (REQUIP) 0.25 MG tablet Take 1 tablet by mouth at bedtime Reasons: Restless Leg Syndrome ??? saline nasal spray (OCEAN; BABY AYR) 0.65 % nasal spray Sandy Level 2 sprays into each nostril every 2 hours as needed for Dry Nose ??? sulfamethoxazole-trimethoprim (BACTRIM DS; SEPTRA DS) 800-160 MG tablet Take 1 tablet by mouth every Friday, Friday & Friday Reasons: PJP prophylaxis s/p stem cell transplant ??? vitamin D3-cholecalciferol (CHOLECALCIFEROL) 25 MCG (1000 UNITS) tablet Take 2 tablets by mouthonce daily No current facility-administered medications for this encounter. VITALS: Vitals: 08/31/20 1303 08/31/20 1435 08/31/20 1516 BP: 127/73 124/80 123/73 Pulse: (!) 114 97 86 Resp: 18 16 Temp: 100 ??F 97.8 ??F 98.1 ??F SpO2: 100% 98% 100% Wt Readings from Last 3 Encounters: 06/16/20 128.4 kg (283 lb 0.3 oz) 03/30/20 113.7 kg (250 lb 10.6 oz) 02/26/20 120.2 kg (265 lb) PHYSICAL EXAM: Karnofsky/ECO/2 Physical Examination: General appearance - alert, well appearing, and in no distress Mental status - alert, oriented to person, place, and time Chest - diminished breath sounds, on 2L during visit Heart - normal rate, regular rhythm, normal S1, S2, no murmurs, rubs, clicks or gallops Abdomen - soft, nontender, nondistended, no masses or organomegaly Extremities - peripheral pulses normal, no pedal edema, no clubbing or cyanosis Skin - normal coloration and turgor, no rashes, no suspicious skin lesions noted LABS: Recent Labs Component Name 08/31/20 1335 07/14/20 1044 06/16/20 1125 03/18/20 2357 03/18/20 2357 WBC 13.4* 14.9* 14.6* - 16.8* RBC 4.55 4.84 4.56 - 3.42* HGB 10.9* 11.1* 11.3* - 10.0* HCT 34.8* 35.7* 35.5* - 30.1* MCV 76.5* 73.8* 77.9* - 88.0 MCH 24.0* 22.9* 24.8* - 29.2 MCHC 31.3* 31.1* 31.8* - 33.2 PLTCOUNT 548* 582* 549* - 188 RDWSD 65.8* 52.4* 56.5* - 62.7* RDW 24.6* 20.4* 20.5* - 21.2* MPV 10.4 10.1 9.5 - - NRBCABS 0.02* 0.03* 0.02* - 1.83* NRBCAUTOPCT 0.1* 0.2* 0.1* - 10.9* NEUTPCT 62.5 70.9* 66.4 - - LYMPHSPCT 24.0 20.8 21.1 - - MONOPCT 7.1 5.8 7.9 - - EOSPCT 4.6 1.2 3.3 - - BASOPCT 1.2 0.6 0.8 - - IMMGRANSPCT 0.6 0.7 0.5 - - NEUTABS 8.4* 10.6* 9.7* - 15.96* LYMPHS 3.2* 3.1* 3.1* - 0.17* MONO 0.95* 0.87* 1.15* - 0.50 EOS 0.62* 0.18 0.48* - - BASO 0.16* 0.09* 0.12* - - TOTCELLCNT - - - - 100 - = values in this interval not displayed. Recent Labs Component Name 08/31/20133407/14/20 10406/16/20 1125 BUN 9 12 13 CREATININE 1.1 0.9 0.9 NA 140 138 141 POTASSIUM 4.2 3.8 4.3 CL 103 99 106 CO2 26 27 23 CALCIUM 9.5 9.5 10.0 PROT 6.7 7.1 7.1 ALB 3.4 3.3* 3.4 TBILI 0.2 0.2 0.1* ALKPHOS 172* 122 159* ALT 19 26 38 AST 18 19 24 ANIONGAP 15 16 16 BCR 8 13 14 OSMOLALITY 289 287 292 AGRATIO 1.0* 0.9* 0.9* EGFR >60 >60 >60 Recent Labs Component Name 08/31/20133407/14/20 1044 06/16/20 1125 MAGNESIUM 1.8 1.6 1.9 Recent Labs Component Name 08/31/20133407/14/20 1044 06/16/20 1125 PHOS 2.5 2.6 3.1 IgG (08/31/20) 402 IVIG given today ASSESSMENT/PLAN: MARCELLO LUIS is a 50 year old male, who is Day +316 (Day 0 is 10/20/19) of an autologous peripheral blood stem cell transplant with a 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 SYSTEMS: Marginal Zone Lymphoma in CR2 pre-transplant Schema: 5A Prep: BEAM, Cell count 10.4 x 10^6 CD34+cells/kg in 5 bags; day [address] A/P -- BMBx completed (03/03) c/w CR -Transfusion threshold: Hgb > 7; Plt > 10; CMV +, transfusion pre meds: none needed -Engraftment: ANC day +9 (10/29/19); plt engraftment 11/03/19 (day +14) ?? OI prophylaxis: Bacterial:??Pen VK, will need for life as he is asplenic PJP:??Bactrim DS MWF Viral: Valtrex 500mg BID COVID -tested positive early January, asymptomatic at that time -Covid from bronch 03/07 and COTA swab 03/07 both positive -received remdesivir 03/08 - 03/12 & convalescent plasma 03/10 -completed steroid taper, stim test (07/14/20): 23.6, can stop prednisone -continue Dulera inhaler BID and albuterol PRN -O2 NC to keep sats >90, increase O2 to 10 L with ambulation rather than 8L to avoid hypoxic episodes -plan IVIG monthly x 6 months, dose #5 given today (08/31/20) -Covid IgG negative and RVP continues to be positive (08/31/20). With further evaluation by ID , it was determined that his virus is unfortunately still live virus. We will continue to monitor monthly until negative -refer to Dr. Francis outpatient, seen today 08/31/20 >try to wean O2, to RA at rest if able >will get CT chest non-contrast >when Covid negative, will need PFTs >Dr. Francis to see again 09/28/20 -unlikely to have antibodies due to B cell lymphoma treatment, likely permanent damage and lungs are scarred/fibrotic Anemia -Hgb remains low -continue ferrous sulfate 325 mg daily Migraine Headaches -occur when O2 drops and HR increases, only a few times per week -refer to neurology for workup non-urgently. Had been scheduled for today, but unfortunately got postponed until early October -oxycodone PRN, has trialed many other agents with minimal relief Anxiety/Depression - Lexapro 20 mg daily - increase klonopin to 1 mg QHS - enforced to call 911 if suicidal/homicidal ideations Pertinent Medical Hx: -Restless leg syndrome: requip 0.25 mg QHS -Right IJ venous clot 09/27/19: eliquis stopped Jun 2020 Immunization -received flu vaccine May 2020 Immunization History Administered Date(s) Administered ??? DTAP 5 PERTUSSIS ANTIGENS 07/14/2020 ??? FLU VACCINE IIV INC ANTIG PF IM 05/24/2019 ??? HEP A/HEP B 07/14/2020 ??? HIB-PRP-T 4 DOSE 08/11/2019, 06/16/2020, 08/31/2020 ??? MENINGOCOCCAL MCV4O 08/11/2019, 06/16/2020, 08/31/2020 ??? PNEUMOCOCCAL PPSV23 08/11/2019 ??? POLIO IPV 07/14/2020 ??? Pneumococcal Pcv13 Conj 06/16/2020, 08/31/2020 ??? Zoster Hzv Vacc Recombinant Inj Im 07/14/2020 Discharge Planning: Patients preferred contact information: cell Caregiver: sister, girlfriend Preferred D/C Pharmacy: [facility] Intended lodging: home Referring provider: Cesar Tavares Disposition: RTC in 4 weeks visit with basic, IgG, IVIG and vaccines. He will also get CT chest andsee Dr. Francis that day as well. MISSY [facility] ING MACHINE OPERATOR documented in this encounter Plan of Treatment Upcoming Encounters Date Type Department Care Team (Late st Contact Info) Description 08/26/2024 11:00 AM BEAMING MACHINE OPERATOR Office Visit [facility] - Pulmonology [address] [place] [address], [place] [id number] Andrew Francis MD [address] [place] [address] [address] DIV OF PULMONARY/[place] [address] documented as of this encounter Procedures Procedure Name Priority Date/Time Associated Diagnosis Comments SARS-COV-2 (COVID-19) ANTIBODY IGG Routine 08/31/2020 1:35 PM BEAMING MACHINE OPERATOR Pneumonia due to COVID-19 virus SARS-COV-2 (COVID-19) IN HOUSE Routine 08/31/2020 1:35 PM BEAMING MACHINE OPERATOR Pneumonia due to COVID-19 virus RBC MORPHOLOGY STAT 08/31/2020 1:35 PM BEAMING MACHINE OPERATOR Diffuse large B-cell lymphoma, unspecified body region (HCC) CBC W AUTO DIFFERENTIAL STAT 08/31/2020 1:35 PM BEAMING MACHINE OPERATOR Diffuse large B-cell lymphoma, unspecified body region (HCC) COMPREHENSIVE METABOLIC PANEL STAT 08/31/2020 1:35 PM BEAMING MACHINE OPERATOR Diffuse large B-cell lymphoma, unspecified body region (HCC) PHOSPHORUS BLOOD STAT 08/31/2020 1:35 PM BEAMING MACHINE OPERATOR Diffuse large B-cell lymphoma, unspecified body region (HCC) MAGNESIUM BLOOD STAT 08/31/2020 1:35 PM BEAMING MACHINE OPERATOR Diffuse large B-cell lymphoma, unspecified body region (HCC) IGG BLOOD Routine 08/31/2020 1:35 PM BEAMING MACHINE OPERATOR Pneumonia due to COVID-19 virus documented in this encounter Results * (ABNORMAL) RBC MORPHOLOGY (08/31/2020 1:35 PM BEAMING MACHINE OPERATOR) Platelet Estimate Increased (A) Adequate 08/31/2020 2:18 PM BEAMING MACHINE OPERATOR [facility] Anisocytosis 1+(A) None 08/31/2020 2:18 PM BEAMING MACHINE OPERATOR [facility] Microcytes 1+(A) None 08/31/2020 2:18 PM BEAMING MACHINE OPERATOR [facility] Hypochromia 1+(A) None 08/31/2020 2:18 PM BEAMING MACHINE OPERATOR [facility] Target Cells 1+(A) None 08/31/2020 2:18 PM BEAMING MACHINE OPERATOR [facility] Schistocytes Occasiona l(A) None 08/31/2020 2:18 PM BEAMING MACHINE OPERATOR [facility] Ovalocytes 1+(A) None 08/31/2020 2:18 PM BEAMING MACHINE OPERATOR [facility] Sravani Cells 1+(A) None 08/31/2020 2:18 PM BEAMING MACHINE OPERATOR [facility] Blood BLOOD SPECIMEN / Unknown Venipuncture / Unknown 08/31/2020 1:35 PM BEAMING MACHINE OPERATOR 08/31/2020 1:42 PM BEAMING MACHINE OPERATOR Tifafnie Nguyen [facility] - HEMATOLOG Y ORDERABLES [address] [address], [facility] [phone] * PHOSPHORUS BLOOD (08/31/2020 1:35 PM BEAMING MACHINE OPERATOR) Phosphorus 2.5 2.3 - 4.7 mg/dL 08/31/2020 2:13 PM BEAMING MACHINE OPERATOR [facility] Blood BLOOD SPECIMEN / Unknown Venipuncture / Unknown 08/31/2020 1:35 PM BEAMING MACHINE OPERATOR 08/31/2020 1:42 PM BEAMING MACHINE OPERATOR Tiffanie Nguyen [facility] - CHEMISTRY ORDERABLES Performing Organization Address [facility]/ZIP Co de Phone Number [address] [address], [place] [phone] * MAGNESIUM BLOOD (08/31/2020 1:35 PM BEAMING MACHINE OPERATOR) Magnesium 1.8 1.6 - 2.6 mg/dL 08/31/2020 2:13 PM BEAMING MACHINE OPERATOR [facility] Blood BLOOD SPECIMEN / Unknown Venipuncture / Unknown 08/31/2020 1:35 PM BEAMING MACHINE OPERATOR 08/31/2020 1:42 PM BEAMING MACHINE OPERATOR Tiffanie Nguyen [facility] - CHEMISTRY ORDERABLES Performing Organization Address [facility]/ZIP Co de Phone Number [address] [address], [place] [phone] * (ABNORMAL) CBC W AUTO DIFFERENTIAL (08/31/2020 1:35 PM [facility]) WBC 13.4(H) 3.5 - 10.5 10? 3 /uL 08/31/2020 1:53 PM [facility] RBC 4.55 4.30 - 5.70 10? 6 /uL 08/31/2020 1:53 PM [facility] Hemoglobin 10.9(L) 13.5 - 17.5 g/dL 08/31/2020 1:53 PM [facility] Hematocrit 34.8(L) 39.0 - 50.0 % 08/31/2020 1:53 PM [facility] MCV 76.5(L) 81.0 - 97.0 fL 08/31/2020 1:53 PM [facility] MCH 24.0(L) 28.0 - 34.0 pg 08/31/2020 1:53 PM [facility] MCHC 31.3(L) 32.0 - 36.0 g/dL 08/31/2020 1:53 PM [facility] Platelet Count 548(H) 150 - 400 10? 3 /uL 08/31/2020 1:53 PM [facility] RDW-SD 65.8(H) 36.0 - 50.0 fL 08/31/2020 1:53 PM [facility] RDW-CV 24.6(H) 11.2 - 14.8 % 08/31/2020 1:53 PM [facility] MPV 10.4 9.3 - 12.8 fL 08/31/2020 1:53 PM [facility] nRBC Absolute 0.02(H) 0 10? 3 /uL 08/31/2020 1:53 PM [facility] nRBC Auto 0.1(H) 0 /100 WBC 08/31/2020 1:53 PM [facility] Neutrophils % 62.5 35.0 - 70.0 % 08/31/2020 1:53 PM [facility] Lymphocytes % 24.0 19.7 - 55.1 % 08/31/2020 1:53 PM [facility] Monocytes % 7.1 3.0 - 15.0 % 08/31/2020 1:53 PM [facility] Eosinophils % 4.6 0.0 - 6.0 % 08/31/2020 1:53 PM [facility] Basophil % 1.2 0.0 - 1.5 % 08/31/2020 1:53 PM [facility] Neutrophils Absolute 8.4(H) 1.6 - 7.0 10? 3 /uL 08/31/2020 1:53 PM [facility] Lymphocyte Absolute 3.2(H) 0.8 - 2.9 10? 3 /uL 08/31/2020 1:53 PM [facility] Monocytes Absolute 0.95(H) 0.14 - 0.66 10? 3 /uL 08/31/2020 1:53 PM [facility] Eosinophils Absolute 0.62(H) 0.00 - 0.45 10? 3 /uL 08/31/2020 1:53 PM [facility] Basophils Absolute 0.16(H) 0.00 - 0.06 10? 3 /uL 08/31/2020 1:53 PM [facility] Reflex Status Smear review to follow 08/31/2020 1:53 PM [facility] Immature Granulocytes % 0.6 0.0 - 1.0 % 08/31/2020 1:53 PM [facility] Blood BLOOD SPECIMEN / Unknown Venipuncture / Unknown 08/31/2020 1:35 PM BEAMING MACHINE OPERATOR 08/31/2020 1:42 PM [facility] Tiffanie Nguyen PLANT OPERATIONS WORKER-FIREPROOF DOOR MAKER LAB - HEMATOLOG Y ORDERABLES Performing Organization Address City/[facility] Co de Phone Number [facility] [address] [place] [address], [facility] [phone] * (ABNORMAL) COMPREHENSIVE METABOLIC PANEL (08/31/2020 1:35 PM BEAMING MACHINE OPERATOR) BUN 9 7 - 26 mg/dL 08/31/2020 2:13 PM [facility] Creatinine 1.1 0.6 - 1.2 mg/dL 08/31/2020 2:13 PM [facility] Sodium 140 136 - 145 mmol/L 08/31/2020 2:13 PM [facility] Potassium 4.2 3.5 - 4.5 mmol/L 08/31/2020 2:13 PM [facility] Chloride 103 98 - 107 mmol/L 08/31/2020 2:13 PM [facility] CO2 26 22 - 29 mmol/L 08/31/2020 2:13 PM [facility] Glucose 100 70 - 115 mg/dL 08/31/2020 2:13 PM [facility] Calcium 9.5 8.4 - 10.2 mg/dL 08/31/2020 2:13 PM [facility] Protein Total 6.7 6.0 - 8.3 g/dL 08/31/2020 2:13 PM [facility] Albumin 3.4 3.4 - 5.0 g/dL 08/31/2020 2:13 PM [facility] Bilirubin Total 0.2 0.2 - 1.2 mg/dL 08/31/2020 2:13 PM [facility] Alkaline Phosphatase 172(H) 40 - 150 Units/L 08/31/2020 2:13 PM [facility] ALT 19 0 - 55 Units/L 08/31/2020 2:13 PM [facility] AST 18 5 - 34 Units/L 08/31/2020 2:13 PM [facility] Anion Gap 15 8 - 18 08/31/2020 2:13 PM [facility] BUN/Creatinine Ratio 8 7 - 23 08/31/2020 2:13 PM [facility] Osmolality Calculated 289 270 - 300 mOsm/kg 08/31/2020 2:13 PM [facility] Albumin/Globulin Ratio 1.0(L) 1.1 - 2.3 08/31/2020 2:13 PM [facility] eGFR >60 >60 mL/min/1.7 3 m2 08/31/2020 2:13 PM [facility] Blood BLOOD SPECIMEN / Unknown Venipuncture / Unknown 08/31/2020 1:35 PM BEAMING MACHINE OPERATOR 08/31/2020 1:42 PM BEAMING MACHINE OPERATOR Tiffanie Nguyen PLANT OPERATIONS WORKER-FIREPROOF DOOR MAKER LAB - CHEMISTRY ORDERABLES [facility] [address] [place] [address], [facility] [phone] * (ABNORMAL) IGG BLOOD (08/31/2020 1:35 PM BEAMING MACHINE OPERATOR) IgG 402(L) 540-1,822 mg/dL 08/31/2020 2:24 PM BEAMING MACHINE OPERATOR [facility] Blood BLOOD SPECIMEN / Unknown Venipuncture / Unknown 08/31/2020 1:35 PM BEAMING MACHINE OPERATOR 08/31/2020 1:57 PM BEAMING MACHINE OPERATOR Tiffanie Nguyen PLANT OPERATIONS WORKER-FIREPROOF DOOR MAKER LAB - CHEMISTRY ORDERABLES [address] [address], [facility] [phone] * SARS-COV-2 (COVID-19) ANTIBODY IGG (08/31/2020 1:35 PM BEAMING MACHINE OPERATOR) CoV2 IGG Negative 08/31/2020 9:28 PM BEAMING MACHINE OPERATOR [facility] Blood BLOOD SPECIMEN / Unknown Venipuncture / Unknown 08/31/2020 1:35 PM BEAMING MACHINE OPERATOR 08/31/2020 1:57 PM BEAMING MACHINE OPERATOR Narrative [facility] - 08/31/2020 9:28 PM BEAMING MACHINE OPERATOR This serologic based test was developed by [employer] and its performance characteristics determined by [facility]. This test has not [...] due to past or present infection with [id number] coronavirus strains. Rigorous scientific studies have not been completed to determine if detectable IgG to SARS-CoV-2 confers protective immunity. Tiffanie Nguyen [facility] - CHEMISTRY ORDERABLES [facility] [address] [facility] [place] [address], [place] [phone] * (ABNORMAL) SARS-COV-2 (COVID-19) IN HOUSE (08/31/2020 1:35 PM BEAMING MACHINE OPERATOR) COVID-19 PCR Detected( AA) Not detected 08/31/2020 9:31 PM BEAMING MACHINE OPERATOR [facility] Microbiology SPECIMEN FROM NASOPHARYNGEAL STRUCTURE / Unknown Collection / Unknown 08/31/2020 1:35 PM BEAMING MACHINE OPERATOR 08/31/2020 1:45 PM BEAMING MACHINE OPERATOR Narrative [facility] - 08/31/2020 9:31 PM BEAMING MACHINE OPERATOR This nucleic acid amplification assay performance was validated by [facility]. This test has been authorized [...] assay are available upon request. Tiffanie Nguyen PLANT OPERATIONS WORKER-[facility] - MICROBIOL OGY ORDERABLES [facility] [address] [place] [address], [facility] [phone] documented in this encounter Visit Diagnoses Diagnosis [...] Rate Site immune globulin (GAMUNEX-C) 10 % 30 g 30 g (rounded from 26.44 g = 0.4 g/kg ? 66.1 kg Treatment plan ideal weight), at 0-999 mL/hr, Intravenous, CONTINUOUS, Starting on Ofelia 08/31/20 at 1200, Until Ofelia 08/31/20 at 1759, If patient has history of IVIG infusion [...] should be infused alone. $ New Bag/Syringe 08/31/2020 3:18 PM BEAMING MACHINE OPERATOR 30 g 546 mL/hr Rate Change 08/31/2020 2:51 PM BEAMING MACHINE OPERATOR 273 mL/hr Rate Change 08/31/2020 2:33 PM BEAMING MACHINE OPERATOR 136 mL/hr prochlorperazine (COMPAZINE) injection 10 mg 10 mg, Intravenous, ONCE PRN, Nausea/Vomiting, Starting on Ofelia 08/31/20 at 1200, Until Ofelia 08/31/20 at 2359, First line for breakthrough nausea. Max intravenous rate = 5 mg/min $ Given 08/31/2020 1:49 PM BEAMING MACHINE OPERATOR 10 mg documented in this encounter Care Teams Packaging Technician Relationship Specialty Start Date End Date Ran Nuñez MD [address] [place] [address] PCP - General Family Medicine 03/22/19 12/22/20 Hillary Apple MD [address] [place] [address] Hematology and Oncology 03/17/19 Bill Ferrera MD [address] [place] [address] Hematology and Oncology 03/17/19 08/27/21 Tony Dumont MD [facility] [place] [address] Hematology and Oncology 03/17/19 Maryjo Reinoso, PARTS REMOVER Ash Collector 03/17/19 Madyson Clay, PharmD 03/17/19 Dana Lala, PLANT OPERATIONS WORKER-INSTRUCTIONAL DEVELOPER [address] [facility] 2nd [place] [address] Oncology 03/17/19 Tiffanie Nguyen, PLANT OPERATIONS WORKER-FIREPROOF DOOR MAKER [address] [facility] 2[address] [place] [address] Family Medicine 03/17/19 Stephanie Mahoney, RN Registered Nurse 03/17/19 10/29/21 Alycia Galvan, ROSEMARY 03/17/19 10/29/21 Cesar Tavares MD [address] [place] [address] Referring Physician Medical Oncology 03/23/19 Karie Jones, RN Registered Nurse 06/08/19 10/29/21 Joy Bob 09/22/19 Addison Shea, PharmD Pharmacist 09/22/19 10/29/21 documented as of this encounter
--- OUTSIDE RECORDS SUMMARY | 2024-08-18 00:24 | XMS_ITS | Encounter Summary ---
Author Organization [facility] Address [address] [facility] [place] [address] Care Team Providers Care Flume Ride Operator Name Role Phone Hillary Apple MD Unavailable [phone] Bill Ferrera MD Unavailable [phone] Tony Dumont MD Unavailable Maryjo Reinoso [facility] Unavailable Unavailable Mdayson Clay PharmD Unavailable Unavaila Dana Galicia DIRECTOR OF STUDENT FINANCIAL SERVICES-ANSWERING SERVICE TELEPHONE OPERATOR Unavailable [phone] Tiffanie Nguyen DIRECTOR OF STUDENT FINANCIAL SERVICES-MANAGER CHEMICAL Unavailable [phone] Stephanie Mahoney RN Unavailable Unavailable Alycia Galvan RN Unavailable UnavailRan Mejía MD Primary Care Provider Cesar Tavares MD Unavailable [phone] Karie Jones RN Unavailable Unavailable Joy Bob Unavailable Fanta Addison Weinstein PharmD Unavailable Unavailab le Encounter Details Date Type Department Care Team (Late st Contact Info) Description 09/29/2020 Orders Only [facility] - COVID Vaccine [address] [place] [id number] Alonso Walton MD [address] [place] [address] Need for vaccination Social History [...] COVID-19? No / Unsure 09/28/2020 1:10 PM AIRCRAFT ELECTRONICS TECHNICAL OFFICER documented as of this encounter Functional Status [...] st Contact Info) Description 08/26/2024 11:00 AM AIRCRAFT ELECTRONICS TECHNICAL OFFICER Office Visit [facility] - Pulmonology [address] [place] [address], [place] [address] Andrew Francis MD [address] [place] [address] DIV OF PULMONARY/[place] [address] documented as of this encounter Visit Diagnoses Diagnosis Need for vaccination Need for prophylactic vaccination and inoculation against unspecified single disease documented in this encounter Additional Health Concerns Infection Onset Date Last Indicated Resolved Time COVID-19 Confirmed 09/28/2020 09/28/2020 4:33 AM AIRCRAFT ELECTRONICS TECHNICAL OFFICER documented as of this encounter Care Teams Flume Ride Operator Relationship Specialty Start Date End Date Ran Nuñez MD [address] [place] [address] PCP - General Family Medicine 03/22/19 12/22/20 Hillary Apple MD [address] [place] [address] Hematology and Oncology 03/17/19 Bill Ferrera MD [address] [place] [address] Hematology and Oncology 03/17/19 08/27/21 Tony Dumont MD [address] [place] [address] Hematology and Oncology 03/17/19 Maryjo Reinoso, [facility] B2B Sales Consultant 03/17/19 Madyson Clay, PharmD 03/17/19 Dana Lala, DIRECTOR OF STUDENT FINANCIAL SERVICES-ANSWERING SERVICE TELEPHONE OPERATOR [address] [place] [address] 2nd [place] [address] Oncology 03/17/19 Tiffanie Nguyen, DIRECTOR OF STUDENT FINANCIAL SERVICES-MANAGER CHEMICAL [address] [place] [address] 2nd [place] [address] Family Medicine 03/17/19 Stephanie Mahoney, RN Registered Nurse 03/17/19 10/29/21 Alycia Galvan, ROSEMARY 03/17/19 10/29/21 Cesar Tavares MD [address] [place] [address] Referring Physician Medical Oncology 03/23/19 Karie Jones, RN Registered Nurse 06/08/19 10/29/21 Joy Bob 09/22/19 Addison Shea, PharmD Pharmacist 09/22/19 10/29/21 documented as of this encounter
--- OUTSIDE RECORDS SUMMARY | 2024-08-18 00:24 | XMS_ITS | Encounter Summary ---
Author Organization [facility] Address [address] [facility] [place] [address] Care Team Providers Care Brick And Tile Making Machine Operator Name Role Phone Hillary Apple MD Unavailable [phone] Bill Ferrera MD Unavailable [phone] Tony Dumont MD Unavailable [phone] Maryjo Reinoso [facility] Unavailable Unavailable Madyson Clay PharmD Unavailable Unavaila Dana Galicia PLASTIC CARD GRADER CARDROOM-MEDICAL DIR Unavailable [phone] Tiffanie Nguyen PLASTIC CARD GRADER CARDROOM-PRODUCT MARKETING CONSULTANT Unavailable [phone] Stephanie Mahoney RN Unavailable Unavailable Alycia Galvan RN Unavailable UnavailRan Mejía MD Primary Care Provider Cesar Tavares MD Unavailable [phone] Karie Jones RN Unavailable Unavailable Joy Bob Unavailable Fanta Addison Weinstein PharmD Unavailable Unavail le Reason for Visit * Reason Onset Date Comments MEDICATION REFILL 11/02/2020 Encounter Details Date Type Department Care Team (Late st Contact Info) Description 11/02/2020 Refill [facility] BMT CLINIC [address] [place] [address] Hillary Apple MD [address] [facility] [place] [address] MEDICATION REFILL Social History Tobacco [...] st Contact Info) Description 08/26/2024 11:00 AM HEARING CARE PROFESSIONAL Office Visit [facility] Physician Group - Pulmonology [address] [place] [address], [place] [address] Andrew Francis MD [address] [place] [address] DIV OF PULMONARY/[place] [address] documented as of this encounter Visit Diagnoses Not on filedocumented in this encounter Additional Health Concerns Infection Onset Date Last Indicated Resolved Time COVID-19 Under Investigation 11/16/2020 11/16/2020 11/16/2020 6:52 PM CDT COVID-19 Confirmed 11/16/2020 11/16/2020 4:35 AM CDT COVID-19 Under Investigation 12/20/2020 12/20/2020 12/20/2020 6:23 PM CDT documented as of this encounter Care Teams Brick And Tile Making Machine Operator Relationship Specialty Start Date End Date Ran Nuñez MD [address] [place] [phone] PCP - General Family Medicine 03/22/19 12/22/20 Hillayr Apple MD [address] [place], [place] [id number] Hematology and Oncology 03/17/19 Bill Ferrera MD [address] [place] [address] Hematology and Oncology 03/17/19 08/27/21 Tony Dumont MD [address] [place] [address] Hematology and Oncology 03/17/19 Maryjo Reinoso, [place]ENILLE MACHINE OPERATOR Oracle Erp Architect 03/17/19 Madyson Clay, PharmD 03/17/19 Dana Lala, PLASTIC CARD GRADER CARDROOM-MEDICAL DIR [facility] 2nd [place] [address] Oncology 03/17/19 Tiffanie Nguyen, PLASTIC CARD GRADER CARDROOM-PRODUCT MARKETING CONSULTANT [address] [place], [place] [address] 2nd [place] [address] Family Medicine 03/17/19 Stephanie Mahoney, RN Registered Nurse 03/17/19 10/29/21 Alycia Galvan, ROSEMARY 03/17/19 10/29/21 Cesar Tavares MD [address] [place] [address] Referring Physician Medical Oncology 03/23/19 Karie Jones, RN Registered Nurse 06/08/19 10/29/21 Joy Bob 09/22/19 Addison Shea, PharmD Pharmacist 09/22/19 10/29/21 documented as of this encounter
--- OUTSIDE RECORDS SUMMARY | 2024-08-18 00:24 | XMS_ITS | Encounter Summary ---
Author Organization [facility] Address [address] [place] [address] Care Team Providers Care Hospital Account Liaison Name Role Phone Hillary Apple MD Unavailable [phone] Bill Ferrera MD Unavailable [phone] Tony Dumont MD Unavailable [phone] Maryjo Reinoso CARE TECH Unavailable Unavailable Madyson Clay PharmD Unavailable Unavaila Dana Galicia OBSTETRICS/GYNECOLOGY NURSE-CIGAR WRAPPER TENDER AUTOMATIC Unavailable [phone] Tiffanie Nguyen APRN-PAINTER DECORATOR Unavailable [phone] Stephanie Mahoney RN Unavailable Unavailable Alycia Galvan RN Unavailable UnavailRan Mejía MD Primary Care Provider Cesar Tavares MD Unavailable [phone] Karie Jones RN Unavailable Unavailable Joy oBb Unavailable Fanta Addison Weinstein PharmD Unavailable Unavailab le Reason for Visit * Oncology Prior Authorization (Routine) - Closed Specialty Diagnoses / Procedures Referred By Contac t Referred To Contact Diagnoses B-cell lymphoma, unspecified B-cell lymphoma type, unspecified body region (HCC) S/P splenectomy Acute respiratory failure with hypoxia (HCC) Pneumonia due to COVID-19 virus Procedures MO INJ IG GAMUNEX IV NONLYO 500 MG Tiffanie Nguyen APRN-PAINTER DECORATOR [address] [place] [address] [facility] [address] [place] [address] Referral ID Status Reason Start Date Expiration Date Visits Re quested Visits Authorized [id number] Closed 04/24/2020 04/24/2021 1 1 Encounter Details Date Type Department Care Team (Latest Contact Info) Description 09/28/2020 1:30 PM BUILD AUTOMATION ENGINEER - 09/28/2020 1:50 PM BUILD AUTOMATION ENGINEER Hospital Encounter [facility] [address] [place] [address] Tiffanie Nguyen, OBSTETRICS/GYNECOLOGY NURSE-PAINTER DECORATOR [address] [place] [address] Discharge Disposition: Home or Self [...] COVID-19? No / Unsure 09/28/2020 1:10 PM BUILD AUTOMATION ENGINEER documented as of this encounter Functional Status [...] (HCC),S/P splenectomy,Status post autologous bone marrow transplant ([facility]) TAKE 1 TABLET BY MOUTH TWICE DAILY [...] (OCEAN; BABY AYR) 0.65 % nasal spray [place] 2 sprays into each nostril every 2 [...] encounter Progress Notes * Tiffanie Nguyen, JOSE DAVID-PAINTER DECORATOR - 09/28/2020 8:17 AM CST Autologous Hematopoietic Stem Cell Daily Note: PATIENT IDENTIFIERS: MARCELLO LUIS is a 50 year old male who is Day +344 (Day 0 is 10/20/19) of an autologous peripheral blood stem cell transplant with a 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 INTERVAL HISTORY: Aurelio presents to clinic via wheelchair, accompanied by sister Continues to be about the same, maybe a little better. Has been able to wean O2, isn't wearing O2 at rest and at night. With activity O2 up to 6L. With longer activity his sats will drop to the 40s. Recovers in about 5 minutes which is significantly improved. Continues to get migraines with every desaturation. Gets migraine, takes oxycodone then goes to sleep Dry cough has worsened the past week since he ran out of RedMica. This cough also causes more frequent migraines Sleeping much better with klonopin 1 mg QHS Has red bumpy rash to back that notes, none bothersome ROS: A comprehensive review of systems was negative except for: as noted above MEDICATIONS FOR CURRENT ENCOUNTER: Current Outpatient Medications Medication Sig ??? acetaminophen (TYLENOL) 325 MG tablet Take 1 tablet by mouth every 4 hours as needed Maximum allowable Acetaminophen amount = 4 Grams (4000 mg) / 24 hours. (Patient not taking: Reported on 09/28/2020) ??? acyclovir (ZOVIRAX) 400 MG tablet Take 2 tablets by mouth 2 times daily ??? albuterol HFA (PROVENTIL;VENTOLIN;PROAIR) 108 (90 Base) MCG/ACT inhaler Inhale 2 puffs by mouthevery 4 hours ??? budesonide-formoterol (SYMBICORT) 160-4.5 MCG/ACT inhaler Inhale 2 (two) puffs by mouth 2 timesdaily (Patient not taking: Reported on 09/28/2020) ??? clonazePAM (KLONOPIN) 1 MG tablet TAKE [...] 1 puff by mouth 2 times daily (Patient not taking: Reported on 09/28/2020) ??? multivitamin daily tablet Take 1 tablet [...] (OCEAN; BABY AYR) 0.65 % nasal spray [place] 2 sprays into each nostril every 2 hours as needed for Dry Nose ??? sulfamethoxazole-trimethoprim (BACTRIM DS; SEPTRA DS) 800-160 MG tablet Take 1 tablet by mouth every Friday, Friday & Friday Reasons: PJP prophylaxis s/p stem cell transplant ??? vitamin D3-cholecalciferol (CHOLECALCIFEROL) 25 MCG (1000 UNITS) tablet Take 2 tablets by mouthonce daily Current Facility-Administered Medications Medication ??? heparin lock flush injection 500 Units ??? immune globulin (GAMUNEX-C) 10 % 30 g VITALS: Vitals: 09/28/20 1357 09/28/20 1456 09/28/20 1500 09/28/20 1617 BP: 128/85 114/63 126/84 115/65 Pulse: 103 95 93 90 Resp: 18 18 18 18 Temp: 98.1 ??F 98.3 ??F 97.9 ??F 98.1 ??F SpO2: 97% 100% 100% 100% Wt Readings from Last 3 Encounters: 06/16/20 128.4 kg (283 lb 0.3 oz) 03/30/20 113.7 kg (250 lb 10.6 oz) 02/26/20 120.2 kg (265 lb) PHYSICAL EXAM: Karnofsky/ECO/2 General appearance - alert, well appearing, and in no distress Mental status - alert, oriented to person, place, and time Chest - 2L at rest in clinic, clear to auscultation, no wheezes, rales or rhonchi, symmetric air entry Heart - normal rate, regular rhythm, normal S1, S2, no murmurs, rubs, clicks or gallops Abdomen - soft, nontender, nondistended, no masses or organomegaly Extremities - peripheral pulses normal, no pedal edema, no clubbing or cyanosis Skin - no rashes appreciated, scattered areas of folliculitis noted to back PIV - C/D/I LABS: Recent Labs Component Name 09/28/20 1438 08/31/20 1335 07/14/20 1044 03/18/20 2357 03/18/20 2357 WBC 10.2 13.4* 14.9* - 16.8* RBC 4.59 4.55 4.84 - 3.42* HGB 12.3* 10.9* 11.1* - 10.0* HCT 38.5* 34.8* 35.7* - 30.1* MCV 83.9 76.5* 73.8* - 88.0 MCH 26.8* 24.0* 22.9* - 29.2 MCHC 31.9* 31.3* 31.1* - 33.2 PLTCOUNT 470* 548* 582* - 188 RDWSD 76.1* 65.8* 52.4* - 62.7* RDW 25.6* 24.6* 20.4* - 21.2* MPV 9.9 10.4 10.1 - - NRBCABS 0.00 0.02* 0.03* - 1.83* NRBCAUTOPCT 0.0 0.1* 0.2* - 10.9* NEUTPCT 49.6 62.5 70.9* - - LYMPHSPCT 33.4 24.0 20.8 - - MONOPCT 7.5 7.1 5.8 - - EOSPCT 7.3* 4.6 1.2 - - BASOPCT 1.9* 1.2 0.6 - - IMMGRANSPCT 0.3 0.6 0.7 - - NEUTABS 5.1 8.4* 10.6* - 15.96* LYMPHS 3.4* 3.2* 3.1* - 0.17* MONO 0.77* 0.95* 0.87* - 0.50 EOS 0.75* 0.62* 0.18 - - BASO 0.19* 0.16* 0.09* - - TOTCELLCNT - - - - 100 - = values in this interval not displayed. Recent Labs Component Name 09/28/20 1438 08/31/20 1335 07/14/20 1044 BUN 12 9 12 CREATININE 1.1 1.1 0.9 NA 141 140 138 POTASSIUM 4.5 4.2 3.8 CL 107 103 99 CO2 24 26 27 CALCIUM 8.8 9.5 9.5 PROT 6.4 6.7 7.1 ALB 3.6 3.4 3.3* TBILI 0.2 0.2 0.2 ALKPHOS 113 172* 122 ALT 38 19 26 AST 31 18 19 ANIONGAP 15 15 16 BCR 11 8 13 OSMOLALITY 292 289 287 AGRATIO 1.3 1.0* 0.9* EGFR >60 >60 >60 Recent Labs Component Name 09/28/20 1438 08/31/20 1335 07/14/20 1044 MAGNESIUM 1.9 1.8 1.6 Recent Labs Component Name 09/28/20 1438 08/31/20 1335 07/14/20 1044 PHOS 2.6 2.5 2.6 IgG (09/28/20) 535 IVIG given today RADIOLOGY CT Chest (09/28/20) Interval development of areas of reticulation, cystic change, and bronchiectasisas detailed above, with some areas of volume loss. The findings suggest postinflammatory fibrosis. ASSESSMENT/PLAN: MARCELLO LUIS is a 50 year old male, who is Day +344 (Day 0 is 10/20/19) of an autologous [...] that time -Covid from bronch 03/07 and [employer]AV[employer] HELPER swab 03/07 both positive -received remdesivir 03/08 - 03/12 & convalescent plasma 03/10, completed steroid taper -continue albuterol PRN; advair was too costly so Symbicort was sent in today -O2 NC to keep sats >90, RA with rest -plan IVIG monthly, dose #6 given today (09/28/20) -Covid IgG negative and RVP continues to be positive (09/28/20). Last assessment (08/31) the virus was not live for the first time -follows Dr. Francis outpatient, seen today 09/28/20 > CT chest non-contrast as above > inflammatory markers repeated today (09/28/20), mildly elevated > get ECHO with bubble study >when Covid negative, will need PFTs >Dr. Francis to see again 11/02/20 -unlikely to have antibodies due to B cell lymphoma treatment, likely permanent damage and lungs are scarred/fibrotic -reviewed with team, encouraged Aurelio to get Covid vaccine to offer any additional support he can have Anemia -Hgb remains low -continue ferrous sulfate 325 mg daily Migraine Headaches -occur when O2 drops and HR increases, only a few times per week -refer to neurology, will see 10/06 -oxycodone PRN, has trialed many other agents [...] cell Caregiver: sister, girlfriend Preferred D/C Pharmacy: [facility] Intended lodging: home Referring provider: Cesar Tavares Disposition: RTC 4/1/21 for visit with basics, Covid swab, Covid IgG, IgG, IVIG and vaccines. He will also get ECHO and see Dr. Francis that day as well. Tiffanie Nguyen, MISSY- Blood and Marrow Transplant Clinic [facility] D AUTOMATION ENGINEER documented in this encounter Plan of Treatment Upcoming Encounters Date Type Department Care Team (Late st Contact Info) Description 08/26/2024 11:00 AM BUILD AUTOMATION ENGINEER Office Visit [facility] - Pulmonology [address] [place] [address], [place] [address] Andrew Francis MD [address] [place] [address] 2L DIV OF PULMONARY/[place] [address] documented as of this encounter Procedures Procedure Name Priority Date/Time Associated Diagnosis Comments TROPONIN I Routine 09/28/2020 3:02 PM BUILD AUTOMATION ENGINEER Chronic respiratory failure with hypoxia (HCC) C-REACTIVE PROTEIN Routine 09/28/2020 3: 02 PM BUILD AUTOMATION ENGINEER Chronic respiratory failure with hypoxia (HCC) D-DIMER Routine 09/28/2020 3:02 PM BUILD AUTOMATION ENGINEER Chronic respiratory failure with hypoxia (HCC) FERRITIN Routine 09/28/2020 3:02 PM BUILD AUTOMATION ENGINEER Chronic respiratory failure with hypoxia (HCC) SARS-COV-2 (COVID-19) ANTIBODY IGG Routine 09/28/2020 2:38 PM BUILD AUTOMATION ENGINEER Pneumonia due to COVID-19 virus SARS-COV-2 (COVID-19) IN HOUSE Routine 09/28/2020 2:38 PM BUILD AUTOMATION ENGINEER Pneumonia due to COVID-19 virus RBC MORPHOLOGY Routine 09/28/2020 2:38 PM BUILD AUTOMATION ENGINEER Diffuse large B-cell lymphoma, unspecified body region (HCC) CBC W AUTO DIFFERENTIAL STAT 09/28/2020 2:38 PM BUILD AUTOMATION ENGINEER Diffuse large B-cell lymphoma, unspecified body region (HCC) COMPREHENSIVE METABOLIC PANEL STAT 09/28/2020 2:38 PM BUILD AUTOMATION ENGINEER Diffuse large B-cell lymphoma, unspecified body region (HCC) PHOSPHORUS BLOOD STAT 09/28/2020 2:38 PM BUILD AUTOMATION ENGINEER Diffuse large B-cell lymphoma, unspecified body region (HCC) MAGNESIUM BLOOD STAT 09/28/2020 2:38 PM BUILD AUTOMATION ENGINEER Diffuse large B-cell lymphoma, unspecified body region (HCC) IGG BLOOD Routine 09/28/2020 2:38 PM BUILD AUTOMATION ENGINEER Pneumonia due to COVID-19 virus ERYTHROCYTE SEDIMENTATION RATE Routine 09/28/2020 2:28 PM BUILD AUTOMATION ENGINEER Chronic respiratory failure with hypoxia (HCC) B-TYPE NATRIURETIC PEPTIDE Routine 09/28/2020 2:28 PM BUILD AUTOMATION ENGINEER Chronic respiratory failure with hypoxia (HCC) documented in this encounter Results * TROPONIN I (09/28/2020 3:02 PM BUILD AUTOMATION ENGINEER) [facility] Troponin I <0.010 <0.032 ng/mL 09/28/2020 5:24 PM BUILD AUTOMATION ENGINEER [facility] Blood BLOOD SPECIMEN / Unknown Venipuncture / Unknown 09/28/2020 3:02 PM BUILD AUTOMATION ENGINEER 09/28/2020 4:20 PM BUILD AUTOMATION ENGINEER Andrew Francis MD LAB - CHEMISTRY [place] [facility] [address] [place] [phone], [facility] [phone] * (ABNORMAL) D-DIMER (09/28/2020 3:02 PM BUILD AUTOMATION ENGINEER) [facility] D-Dimer Quantitative 0.67(H) <=0.50 mcg/mL FEU 09/28/2020 4:06 PM BUILD AUTOMATION ENGINEER [facility] Comment: In the absence of clinical [...] Unknown Venipuncture / Unknown 09/28/2020 3:02 PM BUILD AUTOMATION ENGINEER 09/28/2020 4:06 PM BUILD AUTOMATION ENGINEER Andrew Francis MD LAB - COAGULATION OR DERABLES Performing Organization Address [facility]/ZIP Co de Phone Number [address] [address], [facility] [phone] * FERRITIN (09/28/2020 3:02 PM BUILD AUTOMATION ENGINEER) Ferritin 93 22 - 275 ng/mL 09/28/2020 7:17 PM BUILD AUTOMATION ENGINEER [facility] Blood BLOOD SPECIMEN / Unknown Venipuncture / Unknown 09/28/2020 3:02 PM BUILD AUTOMATION ENGINEER 09/28/2020 6:48 PM BUILD AUTOMATION ENGINEER Andrew Francis MD LAB - CHEMISTRY [place] [address] [address], [place] [phone] * (ABNORMAL) C-REACTIVE PROTEIN (09/28/2020 3:02 PM BUILD AUTOMATION ENGINEER) [facility] C-Reactive Protein 0.9(H) <=0.5 mg/dL 09/28/2020 6:48 PM BUILD AUTOMATION ENGINEER [facility] Blood BLOOD SPECIMEN / Unknown Venipuncture / Unknown 09/28/2020 3:02 PM BUILD AUTOMATION ENGINEER 09/28/2020 6:48 PM BUILD AUTOMATION ENGINEER Andrew Francis MD LAB - CHEMISTRY [place] [address] [address], [facility] [phone] * (ABNORMAL) RBC MORPHOLOGY (09/28/2020 2:38 PM BUILD AUTOMATION ENGINEER) [facility] Platelet Estimate Increased (A) Adequate 09/28/2020 3:59 PM BUILD AUTOMATION ENGINEER [facility] Anisocytosis 1+(A) None 09/28/2020 3:59 PM BUILD AUTOMATION ENGINEER [facility] Polychromasia Occasiona l(A) None 09/28/2020 3:59 PM BUILD AUTOMATION ENGINEER [facility] Blank-[place] Bodies 1+(A) None 09/28/2020 3:59 PM BUILD AUTOMATION ENGINEER [facility] Target Cells 2+(A) None 09/28/2020 3:59 PM BUILD AUTOMATION ENGINEER [facility] Ovalocytes 1+(A) None 09/28/2020 3:59 PM BUILD AUTOMATION ENGINEER [facility] [place] Cells 1+(A) None 09/28/2020 3:59 PM BUILD AUTOMATION ENGINEER [facility] Blood BLOOD SPECIMEN / Unknown Venipuncture / Unknown 09/28/2020 2:38 PM BUILD AUTOMATION ENGINEER 09/28/2020 3:17 PM BUILD AUTOMATION ENGINEER Tiffanie Nguyen APRN-PAINTER DECORATOR LAB - HEMATOLOG Y ORDERABLES [address] [address], [place] [phone] * PHOSPHORUS BLOOD (09/28/2020 2:38 PM BUILD AUTOMATION ENGINEER) [facility] Phosphorus 2.6 2.3 - 4.7 mg/dL 09/28/2020 3:51 PM BUILD AUTOMATION ENGINEER [facility] Blood BLOOD SPECIMEN / Unknown Venipuncture / Unknown 09/28/2020 2:38 PM BUILD AUTOMATION ENGINEER 09/28/2020 3:17 PM BUILD AUTOMATION ENGINEER Tiffanie Nguyen [facility] LAB - CHEMISTRY ORDERABLES [address] [address], [facility] [phone] * MAGNESIUM BLOOD (09/28/2020 2:38 PM BUILD AUTOMATION ENGINEER) [facility] Magnesium 1.9 1.6 - 2.6 mg/dL 09/28/2020 3:51 PM BUILD AUTOMATION ENGINEER [facility] Blood BLOOD SPECIMEN / Unknown Venipuncture / Unknown 09/28/2020 2:38 PM BUILD AUTOMATION ENGINEER 09/28/2020 3:17 PM BUILD AUTOMATION ENGINEER Tiffanie Nguyen [facility] LAB - CHEMISTRY ORDERABLES [address] [address], [facility] [phone] * (ABNORMAL) CBC W AUTO DIFFERENTIAL (09/28/2020 2:38 PM BUILD AUTOMATION ENGINEER) [facility] WBC 10.2 3.5 - 10.5 10? 3 /uL 09/28/2020 3:35 PM [facility] RBC 4.59 4.30 - 5.70 10? 6 /uL 09/28/2020 3:35 PM [facility] Comment:Anisocytosis Hemoglobin 12.3(L) 13.5 - 17.5 g/dL 09/28/2020 3:35 PM [facility] Hematocrit 38.5(L) 39.0 - 50.0 % 09/28/2020 3:35 PM [facility] MCV 83.9 81.0 - 97.0 fL 09/28/2020 3:35 PM [facility] MCH 26.8(L) 28.0 - 34.0 pg 09/28/2020 3:35 PM [facility] MCHC 31.9(L) 32.0 - 36.0 g/dL 09/28/2020 3:35 PM [facility] Platelet Count 470(H) 150 - 400 10? 3 /uL 09/28/2020 3:35 PM [facility] RDW-SD 76.1(H) 36.0 - 50.0 fL 09/28/2020 3:35 PM [facility] RDW-CV 25.6(H) 11.2 - 14.8 % 09/28/2020 3:35 PM [facility] MPV 9.9 9.3 - 12.8 fL 09/28/2020 3:35 PM [facility] nRBC Absolute 0.00 0 10? 3 /uL 09/28/2020 3:35 PM [facility] nRBC Auto 0.0 0 /100 WBC 09/28/2020 3:35 PM [facility] Neutrophils % 49.6 35.0 - 70.0 % 09/28/2020 3:35 PM [facility] Lymphocytes % 33.4 19.7 - 55.1 % 09/28/2020 3:35 PM [facility] Monocytes % 7.5 3.0 - 15.0 % 09/28/2020 3:35 PM [facility] Eosinophils % 7.3(H) 0.0 - 6.0 % 09/28/2020 3:35 PM [facility] Basophil % 1.9(H) 0.0 - 1.5 % 09/28/2020 3:35 PM [facility] Neutrophils Absolute 5.1 1.6 - 7.0 10? 3 /uL 09/28/2020 3:35 PM [facility] Lymphocyte Absolute 3.4(H) 0.8 - 2.9 10? 3 /uL 09/28/2020 3:35 PM [facility] Monocytes Absolute 0.77(H) 0.14 - 0.66 10? 3 /uL 09/28/2020 3:35 PM BUILD AUTOMATION ENGINEER [facility] Eosinophils Absolute 0.75(H) 0.00 - 0.45 10? 3 /uL 09/28/2020 3:35 PM [facility] Basophils Absolute 0.19(H) 0.00 - 0.06 10? 3 /uL 09/28/2020 3:35 PM [facility] Immature Granulocytes % 0.3 0.0 - 1.0 % 09/28/2020 3:35 PM [facility] Blood BLOOD SPECIMEN / Unknown Venipuncture / Unknown 09/28/2020 2:38 PM BUILD AUTOMATION ENGINEER 09/28/2020 3:17 PM BUILD AUTOMATION ENGINEER Tiffanie Nguyen OBSTETRICS/GYNECOLOGY NURSE-PAINTER DECORATOR LAB - HEMATOLOG Y ORDERABLES Performing Organization Address City/State/[facility] Co de Phone Number [facility] [address] [place] [address], [facility] [phone] * COMPREHENSIVE METABOLIC PANEL (09/28/2020 2:38 PM BUILD AUTOMATION ENGINEER) BUN 12 7 - 26 mg/dL 09/28/2020 3:51 PM [facility] Creatinine 1.1 0.6 - 1.2 mg/dL 09/28/2020 3:51 PM [facility] Sodium 141 136 - 145 mmol/L 09/28/2020 3:51 PM [facility] Potassium 4.5 3.5 - 4.5 mmol/L 09/28/2020 3:51 PM [facility] Chloride 107 98 - 107 mmol/L 09/28/2020 3:51 PM [facility] CO2 24 22 - 29 mmol/L 09/28/2020 3:51 PM [facility] Glucose 100 70 - 115 mg/dL 09/28/2020 3:51 PM [facility] Calcium 8.8 8.4 - 10.2 mg/dL 09/28/2020 3:51 PM [facility] Protein Total 6.4 6.0 - 8.3 g/dL 09/28/2020 3:51 PM [facility] Albumin 3.6 3.4 - 5.0 g/dL 09/28/2020 3:51 PM [facility] Bilirubin Total 0.2 0.2 - 1.2 mg/dL 09/28/2020 3:51 PM [facility] Alkaline Phosphatase 113 40 - 150 Units/L 09/28/2020 3:51 PM [facility] ALT 38 0 - 55 Units/L 09/28/2020 3:51 PM [facility] AST 31 5 - 34 Units/L 09/28/2020 3:51 PM [facility] Anion Gap 15 8 - 18 09/28/2020 3:51 PM [facility] BUN/Creatinine Ratio 11 7 - 23 09/28/2020 3:51 PM [facility] Osmolality Calculated 292 270 - 300 mOsm/kg 09/28/2020 3:51 PM [facility] Albumin/Globulin Ratio 1.3 1.1 - 2.3 09/28/2020 3:51 PM [facility] eGFR >60 >60 mL/min/1.7 3 m2 09/28/2020 3:51 PM [facility] Blood BLOOD SPECIMEN / Unknown Venipuncture / Unknown 09/28/2020 2:38 PM BUILD AUTOMATION ENGINEER 09/28/2020 3:17 PM BUILD AUTOMATION ENGINEER Lara Buss [facility] - CHEMISTRY ORDERABLES [address] [address], [facility] [phone] * (ABNORMAL) IGG BLOOD (09/28/2020 2:38 PM BUILD AUTOMATION ENGINEER) IgG 535(L) 540-1,822 mg/dL 09/28/2020 3:47 PM BUILD AUTOMATION ENGINEER [facility] Blood BLOOD SPECIMEN / Unknown Venipuncture / Unknown 09/28/2020 2:38 PM BUILD AUTOMATION ENGINEER 09/28/2020 2:48 PM BUILD AUTOMATION ENGINEER Lara Patrick [facility]STETRICS[facility] LAB - CHEMISTRY ORDERABLES [address] [address], [place] [phone] * SARS-COV-2 (COVID-19) ANTIBODY IGG (09/28/2020 2:38 PM BUILD AUTOMATION ENGINEER) CoV2 IGG Negative 09/29/2020 12:03 AM BUILD AUTOMATION ENGINEER [facility] Blood BLOOD SPECIMEN / Unknown Venipuncture / Unknown 09/28/2020 2:38 PM BUILD AUTOMATION ENGINEER 09/28/2020 2:48 PM BUILD AUTOMATION ENGINEER Narrative [facility] - 09/29/2020 12:03 AM BUILD AUTOMATION ENGINEER This serologic based test was developed by [employer] and its performance characteristics determined by [facility]. This test has not [...] due to past or present infection with [id number] coronavirus strains. Rigorous scientific studies have not been completed to determine if detectable IgG to SARS-CoV-2 confers protective immunity. Tiffanie Nguyen OBSTETRICS/GYNECOLOGY NURSE-PAINTER DECORATOR LAB - CHEMISTRY ORDERABLES [address] [address], [facility] [phone] * (ABNORMAL) SARS-COV-2 (COVID-19) IN HOUSE (09/28/2020 2:38 PM BUILD AUTOMATION ENGINEER) COVID-19 PCR Detected( AA) Not detected 09/28/2020 10:33 PM BUILD AUTOMATION ENGINEER [facility]CRO[facility] Microbiology SPECIMEN FROM NASOPHARYNGEAL STRUCTURE / Unknown Collection / Unknown 09/28/2020 2:38 PM BUILD AUTOMATION ENGINEER 09/28/2020 4:09 PM BUILD AUTOMATION ENGINEER Narrative [facility] - 09/28/2020 10:33 PM BUILD AUTOMATION ENGINEER This nucleic acid amplification assay performance was validated by [facility]. This test has been [...] assay are available upon request. Tiffanie Nguyen OBSTETRICS/GYNECOLOGY NURSE-PAINTER DECORATOR LAB - MICROBIOL OGY ORDERABLES [facility] [address] [place], [address] [phone] * B-TYPE NATRIURETIC PEPTIDE (09/28/2020 2:28 PM BUILD AUTOMATION ENGINEER) BNP <10 See Comment pg/mL 09/28/2020 7:55 PM BUILD AUTOMATION ENGINEER [facility] Comment: A decision threshold of 100 pg/mL [...] Unknown Venipuncture / Unknown 09/28/2020 2:28 PM BUILD AUTOMATION ENGINEER 09/28/2020 6:26 PM BUILD AUTOMATION ENGINEER Andrew Francis MD LAB - CHEMISTRY [place] Performing Organization Address City/[facility] Co de Phone Number [address] [address], [place] [phone] * (ABNORMAL) ERYTHROCYTE SEDIMENTATION RATE (09/28/2020 2:28 PM BUILD AUTOMATION ENGINEER) Erythrocyte Sedimentation Rate Westergren 29(H) 0 - 20 MM/HR 09/28/2020 6:30 PM BUILD AUTOMATION ENGINEER [facility] Blood BLOOD SPECIMEN / Unknown Venipuncture / Unknown 09/28/2020 2:28 PM BUILD AUTOMATION ENGINEER 09/28/2020 6:26 PM [employer] Andrew Francis MD LAB - HEMATOLOGY [facility] Performing Organization Address City/[facility]/ZIP Co de Phone Number [address] [id number], [place] [phone] documented in this encounter Visit Diagnoses Diagnosis Pneumonia due to COVID-19 virus- Primary Status post autologous bone marrow transplant (HCC) Bone marrow replaced by transplant Diffuse large B-cell lymphoma, unspecified body region (HCC) Acute respiratory failure with hypoxia (HCC) Acute respiratory failure 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-cell lymphoma, unspecified B-cell lymphoma type, unspecified body region (HCC) Chronic respiratory failure with hypoxia (HCC) Chronic respiratory failure Anemia, unspecified type Anxiety Anxiety state, unspecified documented in this encounter Administered Medications Inactive Administered Medications - up to 3 most recent administrations Medication Order MAR Action Action Date Dose Rate Site DTaP (aqazeqnppl-sndqidb-qanvx pertussis) (DAPTACEL) (6wk-6y) injection 0.5 mL 0.5 mL, Intramuscular, IMMUNIZATION ONCE, 1 dose, On Ofeila 09/28/20 at 1330 $ Given 09/28/2020 3:56 PM BUILD AUTOMATION ENGINEER 0.5 mL Left Arm hepatitis A-hepatitis B recomb vac 720 EL U-20 mcg/ml (TWINRIX) 720-20 ELU-MCG/ML injection 1 mL 1 mL, Intramuscular, ONCE, 1 dose, On Ofelia 09/28/20 at 1330 $ Given 09/28/2020 3:52 PM BUILD AUTOMATION ENGINEER 1 mL Left Arm immune globulin (GAMUNEX-C) 10 % 30 g 30 g (rounded from 26.44 g = 0.4 g/kg ? 66.1 kg Treatment plan ideal weight), at 0-999 mL/hr, Intravenous, CONTINUOUS, Starting on Ofelia 09/28/20 at 1330, Until Ofelia 09/28/20 at 1929, If patient has history of IVIG infusion [...] IVIG should be infused alone. Rate Change 09/28/2020 3:50 PM BUILD AUTOMATION ENGINEER 546 mL/hr Rate Change 09/28/2020 3:30 PM BUILD AUTOMATION ENGINEER 273 mL/hr Rate Change 09/28/2020 3:14 PM BUILD AUTOMATION ENGINEER 136 mL/hr poliovirus vaccine (inactivate) (IPOL) injection 0.5 mL 0.5 mL, Intramuscular, ONCE, 1 dose, On Ofelia 09/28/20 at 1330, Not for IV administration. $ Given 09/28/2020 3:51 PM BUILD AUTOMATION ENGINEER 0.5 mL Le ft Arm documented in this encounter Care Teams Hospital Account Liaison Relationship Specialty Start Date End Date Ran Nuñez MD [address] [facility] [place] [id number] PCP - General Family Medicine 03/22/19 12/22/20 Hillary Apple MD [facility] [place] [address] Hematology and Oncology 03/17/19 Bill Ferrera MD [address] [place] [address] Hematology and Oncology 03/17/19 08/27/21 Tony Dumont MD [address] [place] [address] Hematology and Oncology 03/17/19 Maryjo Reinoso, CARE TECH Supervisor Tunnel Heading 03/17/19 Madyson Clay, PharmD 03/17/19 Dana Lala, OBSTETRICS/GYNECOLOGY NURSE-CIGAR WRAPPER TENDER AUTOMATIC [address] [facility] 2nd [place] [address] Oncology 03/17/19 Tiffanie Nguyen, JOSE DAVID-PAINTER DECORATOR [address] [facility] 2nd [place] [address] Family Medicine 03/17/19 Stephanie Mahoney, RN Registered Nurse 03/17/19 10/29/21 Alycia Galvan, ROSEMARY 03/17/19 10/29/21 Cesar Tavares MD [address] [place] [address] [place] [address] Referring Physician Medical Oncology 03/23/19 Karie Jones, RN Registered Nurse 06/08/19 10/29/21 Joy Bob 09/22/19 Addison Shea, PharmD Pharmacist 09/22/19 10/29/21 documented as of this encounter
--- OUTSIDE RECORDS SUMMARY | 2024-08-18 00:24 | XMS_ITS | Encounter Summary ---
Author Organization [facility] Address [address] [place] [address] Care Team Providers Care Scrum Product Owner Name Role Phone Hillary Apple MD Unavailable [phone] Bill Ferrera MD Unavailable [phone] Tony Dumont MD Unavailable [phone] Maryjo Reinoso RETAIL WIRELESS SALES CONSULTANT Unavailable Unavailable Madyson Clay PharmD Unavailable Unavaila Dana Galicia SOLID WASTE ANALYST-CYTOPATHOLOGIST Unavailable [phone] Tiffanie Nguyen SOLID WASTE ANALYST-BLAST FURNACE AUXILIARIES SUPERVISOR Unavailable [phone] Stephanie Mahoney RN Unavailable Unavailable Alycia Galvan RN Unavailable UnavailRan Mejía MD Primary Care Provider Cesar Tavares MD Unavailable [phone] Karie Jones RN Unavailable Unavailable Joy Bob Unavailable Fanta Addison Weinstein PharmD Unavailable Unavailab le Reason for Visit * Radiology Services (Routine) - Closed Specialty Diagnoses / Procedures Referred By Contac t Referred To Contact Echosonography Diagnoses Chronic respiratory failure with hypoxia (HCC) Procedures ECHO COMPLETE W BUBBLE STUDY Andrew Francis MD [address] [facility] 2L DIV OF PULMONARY/[place] [address] [facility] Echo [address] [place] [address] Referral ID Status Reason Start Date Expiration Date Visits Re quested Visits Authorized [id number] Closed 09/28/2020 09/28/2021 1 1 Encounter Details Date Type Department Care Team (Latest Contact Info) Description 11/16/2020 8:59 AM CDT - 11/16/2020 10:29 AM CDT Hospital Encounter [facility] [address] [place] [address] Andrew Francis MD [address] [facility] 2L DIV OF PULMONARY/[place] [address] Discharge Disposition: Home or Self Care Social [...] (OCEAN; BABY AYR) 0.65 % nasal spray [place] 2 sprays into each nostril every 2 [...] st Contact Info) Description 08/26/2024 11:00 AM SECURITIES TRADER Office Visit [facility] - Pulmonology [address] [place] [address], [place] [id number] Andrew Francis MD [address] [place] [address] OF PULMONARY/[place] [address] documented as of this encounter Procedures Procedure Name Priority Date/Time Associated Diagnosis Comments ECHO COMPLETE W BUBBLE STUDY Routine 11/16/2020 9:52 AM CDT Chronic respiratory failure with hypoxia (HCC) documented in this encounter Visit Diagnoses Diagnosis Chronic respiratory failure with hypoxia (HCC) Chronic respiratory failure documented in this encounter Administered Medications Inactive Administered Medications - up to 3 most recent administrations Medication Order MAR Action Action Date Dose Rate Site 0.9% NaCl injection 10 mL 10 mL, Intracatheter, INTRA-PROCEDURE MULTIPLE, Starting on Ofelia 11/16/20 at 0917, Until Ofelia 11/16/20 at 1316, For Echo Procedure - Per Protocol Agitate saline before administration. $ Given 11/16/2020 9:52 AM CDT 10 mL $ Given 11/16/2020 9:51 AM CDT 10 mL perflutren Lipid Microsphere (Definity) injection SUSP 0.5 mL 0.5 mL, Intravenous, INTRA-PROCEDURE MULTIPLE, 6 doses, Starting on Ofelia 11/16/20 at 0917, Until 11/17/20 at 0142, For Echo Procedure - Per Protocol Give slowly Shake well before using. $ Given 11/16/2020 9:51 AM CDT 0.5 mL documented in this encounter Additional Health Concerns Infection Onset Date Last Indicated Resolved Time COVID-19 Under Investigation 11/16/2020 11/16/2020 11/16/2020 6:52 PM CDT documented as of this encounter Care Teams Scrum Product Owner Relationship Specialty Start Date End Date Ran Nuñez MD [address] [place] [address] PCP - General Family Medicine 03/22/19 12/22/20 Hillary Apple MD [facility] [place] [address] Hematology and Oncology 03/17/19 Bill Ferrera MD [facility] [place] [address] Hematology and Oncology 03/17/19 08/27/21 Tony Dumont MD [address] [place] [address] Hematology and Oncology 03/17/19 Maryjo Reinoso, RETAIL WIRELESS SALES CONSULTANT Snow Technician 03/17/19 Madyson Clay, PharmD 03/17/19 Dana Lala, SOLID WASTE ANALYST-CYTOPATHOLOGIST [address] [place] [address] Oncology 03/17/19 Tiffanie Nguyen, SOLID WASTE ANALYST-BLAST FURNACE AUXILIARIES SUPERVISOR [address] [place] [address] Family Medicine 03/17/19 Stephanie Mahoney, RN Registered Nurse 03/17/19 10/29/21 Alycia Galvan, RN 03/17/19 10/29/21 Cesar Tavares MD [address] [place] [address] [place] [address] Referring Physician Medical Oncology 03/23/19 Karie Jones, RN Registered Nurse 06/08/19 10/29/21 Joy Bob 09/22/19 Addison Shea, PharmD Pharmacist 09/22/19 10/29/21 documented as of this encounter
--- OUTSIDE RECORDS SUMMARY | 2024-08-18 00:24 | XMS_ITS | Encounter Summary ---
Author Organization [facility] Address [address] [facility] [place] [address] Care Team Providers Care Outside Food Server Name Role Phone Hillary Apple MD Unavailable [phone] Bill Ferrera MD Unavailable [phone] Tony Dumont MD Unavailable [phone] Maryjo ReinosoW Unavailable Unavailable Madyson Clay PharmD Unavailable Unavaila Dana Galicia POLY PACKER AND HEAT SEALER-HUNTING SALES ASSOCIATE Unavailable [phone] Tiffanie Nguyen POLY PACKER AND HEAT SEALER-BLOOD BANK MANAGER Unavailable [phone] Stephanie Mahoney RN Unavailable Unavailable Alycia Galvan RN Unavailable UnavailRan Mejía MD Primary Care Provider Cesar Tavares MD Unavailable [phone] Karie Jones RN Unavailable Unavailable Joy Bob Unavailable Fanta Addison Weinstein PharmD Unavailable Unavailab le Encounter Details Date Type Department Care Team (Latest Contact Info) Description 09/28/2020 Travel Social History Tobacco Use Types Packs/Day [...] COVID-19? No / Unsure 09/28/2020 1:10 PM NET SOFTWARE ENGINEER documented as of this encounter Functional [...] st Contact Info) Description 08/26/2024 11:00 AM NET SOFTWARE ENGINEER Office Visit [facility] - Pulmonology [address] [place] [address], [place] [address] Andrew Francis MD [address] [place] [address] 2L DIV OF PULMONARY/[place] [address] documented as of this encounter Visit Diagnoses Not on filedocumented in this encounter Additional Health Concerns Infection Onset Date Last Indicated Resolved Time COVID-19 Confirmed 09/28/2020 09/28/2020 4:33 AM NET SOFTWARE ENGINEER documented as of this encounter Care Teams Outside Food Server Relationship Specialty Start Date End Date Ran Nuñez MD [address] [place] [address] PCP - General Family Medicine 03/22/19 12/22/20 Hillary Apple MD [address] [place] [address] Hematology and Oncology 03/17/19 Bill Ferrera MD [address] [place] [address] Hematology and Oncology 03/17/19 08/27/21 Tony Dumont MD [address] [place] [address] Hematology and Oncology 03/17/19 Maryjo Reinoso, BACK SEAM STITCHER Liquor Blender 03/17/19 Madyson Clay, PharmD 03/17/19 Dana Llaa, POLY PACKER AND HEAT SEALER-HUNTING SALES ASSOCIATE [address] [facility] [address] [address] Oncology 03/17/19 Tiffanie Nguyen, POLY PACKER AND HEAT SEALER-BLOOD BANK MANAGER [address] [facility] 2[place] [address] Family Medicine 03/17/19 Stephanie Mahoney, RN Registered Nurse 03/17/19 10/29/21 Alycia Galvan, ROSEMARY 03/17/19 10/29/21 Cesar Tavares MD [address] [place] [address] [place] [address] Referring Physician Medical Oncology 03/23/19 Karie oJnes, RN Registered Nurse 06/08/19 10/29/21 Joy Bob 09/22/19 Addison Shea, PharmD Pharmacist 09/22/19 10/29/21 documented as of this encounter
--- OUTSIDE RECORDS SUMMARY | 2024-08-18 00:24 | XMS_ITS | Encounter Summary ---
Author Organization [facility] Address [address] [facility] [place] [address] Care Team Providers Care Shoe Clerk Name Role Phone Hillary Apple MD Unavailable [phone] Bill Ferrera MD Unavailable [phone] Tony Dumont MD Unavailable [phone] Maryjo Reinoso [facility] Unavailable Unavailable Madyson Clay PharmD Unavailable Unavaila Dana Galicia LIEUTENANT FIREFIGHTER-BUSINESS SERVICES ASSISTANT Unavailable [phone] Tiffanie Nguyen LIEUTENANT FIREFIGHTER-OFFICE SERVICES COORDINATOR Unavailable [phone] Stephanie Mahoney RN Unavailable Unavailable Alycia Galvan RN Unavailable UnavailRan Mejía MD Primary Care Provider Cesar Tavares MD Unavailable [phone] Karie Jones RN Unavailable Unavailable Joy Bob Unavailable Fanta Addison Weinstein PharmD Unavailable Unavailab le Reason for Visit * Reason Comments Establish Care Encounter Details Date Type Department Care Team (Late st Contact Info) Description 10/06/2020 8:30 AM GENERAL OFFICE DISPATCHER Video Visit [facility] Neurology [facility] [facility], [place] [address] Jared Crouch, LIEUTENANT FIREFIGHTER-OFFICE SERVICES COORDINATOR [address] [place] [address] [place] [address] Chronic daily headache ; Migraine without aura and without status migrainosus, not intractable Social History Tobacco Use Types Packs/Day Years [...] COVID-19? No / Unsure 09/28/2020 1:10 PM GENERAL OFFICE DISPATCHER documented as of this encounter Functional Status [...] as of this encounter Progress Notes * Jared Crouch, LIEUTENANT FIREFIGHTER-OFFICE SERVICES COORDINATOR - 10/06/2020 9:02 AM CST Telemedicine Note Patient Verification & Telemedicine Based Consent Today's visit was conducted virtually due to COVID-19 countermeasures. The patient/ surrogate has given verbal consent to have today's visit conducted by this same means with treatment provided remotely. I am proceeding with this evaluation at the direct request of the patient. I have verified this is the correct patient and have obtained verbal consent from the patient/surrogate to perform this voluntary telemedicine encounter evaluation. I have explained risks (including potential loss of confiden tiality), benefits, alternatives, and the potential need for subsequent face to face care. Patient/surrogate understands that there is a risk of medical inaccuracies given that our recommendations will be made based on reported data. Knowing that there is a risk that this information is not reported accurately, and that the telemedicine audio, or data feed may be incomplete, the patient agrees toproceed with evaluation and holds us harmless knowing these risks. In this evaluation, we will be providing recommendations only. The patient/surrogate has been notified that other healthcare professionals (including students, residents and technical personnel) may be involved in this audio evaluation. All laws concerning confidentiality and patient access to medical records and copies of medicalrecords apply to telemedicine. I have reviewed this above verification and consent paragraph with the patient/surrogate. Patient location: Home This encounter was performed using: Video Marcello Guillen is a 50 year old male who has completed a telemedicine encounter regarding: establish care for Headache referred by Oncology I obtained information from review of the chart and talking to the patient. 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 Patient developed Covid 19 in January 2020 and since then has difficulty clearing the virus, he has been hospitalized from February to apr 2020 and was treated with Remsedivir, Dexamethasone and plasma. He was on 10L of O2 and now on 6L NL with activity. He last tested positive for Covid 19 on 08/31/20. He reports when his HR 140 and his oxygen level drops with activity he develops migraine COOPER. Holoacranial COOPER, +PPP and denies nausea. COOPER is worse with activity and specially after shower. Uses 6 L O2 with activity. He is taking Oxycodone 5 mg prn and resting helps. Takes Oxycodone ~ 4 times a week. He has tried and failed Ibuprofen and Tramadol. Denies any new neurological problems today. ROS: CONSTITUTIONAL: The patient's weight has not changed recently and appetite has been fair. EYES: no double vision, no blurred vision ENT: no dental or swallowing problems CARD/VASC: no chest pain RESP: no shortness of breath GI: no abdominal pain or change in bowel habits : no change in bladder habits NEUROLOGIC: As discussed in the history of present illness PSYCHIATRIC: Mood stable Current Outpatient Medications on File Prior to Visit Medication Sig Dispense Refill ??? acetaminophen (TYLENOL) 325 MG tablet Take 1 tablet by mouth every 4 hours as needed Maximum allowable Acetaminophen amount = 4 Grams (4000 mg) / 24 hours. (Patient not taking: Reported on 09/28/2020) ??? acyclovir (ZOVIRAX) 400 MG tablet Take 2 tablets by mouth 2 times daily 360 tablet 3 ??? albuterol HFA (PROVENTIL;VENTOLIN;PROAIR) 108 (90 Base) MCG/ACT inhaler Inhale 2 puffs by mouthevery 4 hours ??? budesonide-formoterol (SYMBICORT) 160-4.5 MCG/ACT inhaler Inhale 2 (two) puffs by mouth 2 timesdaily (Patient not taking: Reported on 09/28/2020) 1 Inhaler 5 ??? clonazePAM (KLONOPIN) 1 MG tablet TAKE 1 TABLET BY MOUTH AT BEDTIME FOR ANXIETY 30 tablet 0 ??? diclofenac sodium EC (VOLTAREN) 75 MG tablet TK 1 T PO BID PRF PAIN ??? escitalopram (LEXAPRO) 20 MG tablet Take 1 tablet by mouth once daily 30 tablet 11 ??? ferrous sulfate 325 (65 FE) MG tablet Take 1 (one) tablet by mouth once daily 100 tablet 0 ??? fluticasone propionate (FLONASE) 50 MCG/ACT nasal spray 2 SPRAYS IN EACH NOSTRIL Q DAY ??? fluticasone-salmeterol (ADVAIR/WIXELA) 250-50 MCG/DOSE inhaler Inhale 1 puff by mouth 2 times daily (Patient not taking: Reported on 09/28/2020) 60 Each 11 ??? multivitamin daily tablet Take 1 tablet by mouth daily with food ??? ondansetron, disintegrating, (ZOFRAN ODT) 8 MG tablet Dissolve 1 tablet on top of tongue then swallow with saliva every 8 hours as needed for nausea or vomiting ??? oxyCODONE, immediate release, (ROXICODONE) 5 MG tablet Take 1 (one) tablet by mouth every 12 hours as needed for Pain 60 tablet 0 ??? penicillin v potassium (VEETIDS) 250 MG tablet Take 1 tablet by mouth 2 times daily 60 tablet 5 ??? prochlorperazine (COMPAZINE) 10 MG tablet Take 10 mg by mouth every 6 hours as needed ??? rOPINIRole (REQUIP) 0.25 MG tablet Take 1 tablet by mouth at bedtime Reasons: Restless Leg Syndrome 90 tablet 3 ??? saline nasal spray (OCEAN; BABY AYR) 0.65 % nasal spray [place] 2 sprays into each nostril every 2 hours as needed for Dry Nose ??? sulfamethoxazole-trimethoprim (BACTRIM DS; SEPTRA DS) 800-160 MG tablet Take 1 tablet by mouth every Friday, Friday & Friday Reasons: PJP prophylaxis s/p stem cell transplant 12 tablet 3 ??? vitamin D3-cholecalciferol (CHOLECALCIFEROL) 25 MCG (1000 UNITS) tablet Take 2 tablets by mouthonce daily 60 tablet 3 No current facility-administered medications on file prior to visit. Allergy: Allergies Allergen Reactions ??? Adhesive Sensitivity Urticaria and Other Electrodes -- welps where stickers are Also, use paper tape Past Medical History: Diagnosis Date ??? Diverticulosis [...] DEVICE (PORT OR CATHETER) Right 2019 subclavian Social History Socioeconomic History ??? Marital status: Single Spouse name: Not on file ??? Number of children: Not on file ??? Years of education: Not on file ??? Highest education level: Not on file Occupational History ??? Not on file Social Needs ??? Financial resource strain: Not on file ??? Food insecurity Worry: Not on file Inability: Not on file ??? Transportation needs Medical: Not on file Non-medical: Not on file Tobacco Use ??? Smoking status: Former Smoker Packs/day: 0.50 Types: Cigarettes Start date: 1983 Quit date: 2002 Years since quittin.1 ??? Smokeless tobacco: Former User Types: Chew Quit date: 2016 Substance and Sexual Activity ??? Alcohol use: Not Currently Frequency: Never Binge frequency: Never ??? Drug use: Yes Frequency: 21.0 times per week Types: Marijuana Comment: none in past month ??? Sexual activity: Not on file Lifestyle ??? Physical activity Days per week: Not on file Minutes per session: Not on file ??? Stress: Not on file Relationships ??? Social connections Talks on phone: Not on file Gets together: Not on file Attends jewish service: Not on file Active member of club or organization: Not on file Attends meetings of clubs or organizations: Not on file Relationship status: Not on file ??? Intimate partner violence Fear of current or ex partner: Not on file Emotionally abused: Not on file Physically abused: Not on file Forced sexual activity: Not on file Other Topics Concern ??? Not on file Social History Narrative ??? Not on file Objective Video -Physical Exam General Appearance: in no apparent distress, well developed and well nourished, non-toxic, in no respiratory distress and acyanotic, alert, oriented times 3, and cooperative Recent and Remote Memory: fair Attention Span and Concentration: wnl Speech/Language: fluent Muscle Strength: No weakness noted Cerebellar Coordination-Finger/Nose: intact Gait: Normal stride and stance Data Review/Other Information CBC: Recent Labs Component Name 09/28/20 1438 08/31/20 1335 07/14/20 1044 WBC 10.2 13.4* 14.9* HGB 12.3* 10.9* 11.1* PLTCOUNT 470* 548* 582* BMP: Recent Labs Component Name 09/28/20 1438 08/31/20 1335 07/14/20 1044 NA 141 140 138 CO2 24 26 27 CREATININE 1.1 1.1 0.9 LFT: Recent Labs Component Name 09/28/20 1438 08/31/20 1335 07/14/20 1044 AST 31 18 19 ALT 38 19 26 VITAMIN D: Recent Labs Component Name 09/09/19 1242 [id number] 29.0* Brain Imaging- 02/26/2020 IMPRESSION:?? 1. No evidence of acute intracranial findings. Assessment: Chronic headache Recommendations: - Therapeutic options discussed with patient. - Patient has chronic headache s/p COVID 19 infection in January 2020 and since then has difficulty clearing the virus, on 6L NL O2 with activity, last tested positive for Covid 19 on 08/31/20. On chronic oxygen use, reported headache when HR is high and oxygen level drops. Worse after shower. Under [facility]'s care. Advised pt to have underlying conditions to be treated that causes headache. - Can take Oxycodone 5 mg prn, advised to minimize use of pain meds to avoid rebound headache. Can get refills from current prescriber. - Pt has active problems of kidney stone, headache does have some migraine features but pt defer preventive at this time. He reports that he is going to try to wean him off Oxycodone. Will consider GBN if needed. - Can take Tylenol prn. - Advised regular meal, and good hydration. Call if any questions arise. All pertinent questions were answered to patient's satisfaction. The plan was reviewed with the patient and the patient confirmed understanding of the plan and all follow-up steps. All aspects of patient's medical history were reviewed and updated as documented in Epic Patient is to closely follow up with the primary physician for medical needs. Follow up in 3 months I personally spent 60 minutes on 10/06/2020 preparing to see the patient (e.g. reviewing chart, review of tests), obtaining and/or reviewing the separately obtained history, performing a medically necessary and appropriate examination and evaluation, counseling and educating the patient/family/caregiver, ordering medications, tests, or procedures, documenting in the patient record, and communicating results to the patient/family/caregiver. Jared Crouch APRN-OFFICE SERVICES COORDINATOR Nurse Practitioner- [facility] Neurology RAL OFFICE DISPATCHER documented in this encounter Plan of Treatment Upcoming Encounters Date Type Department Care Team (Late st Contact Info) Description 08/26/2024 11:00 AM GENERAL OFFICE DISPATCHER Office Visit [facility] - Pulmonology [address] [place] [address], [place] [phone] Andrew Francis MD [address] [place] [address] 2L DIV OF PULMONARY/[place] [address] documented as of this encounter Visit Diagnoses Diagnosis Chronic daily headache- Primary Headache Migraine without aura and without status migrainosus, not intractable Migraine without aura, without mention of intractable migraine without mention of status migrainosus documented in this encounter Additional Health Concerns Infection Onset Date Last Indicated Resolved Time COVID-19 Confirmed 09/28/2020 09/28/2020 4:33 AM GENERAL OFFICE DISPATCHER documented as of this encounter Care Teams Shoe Clerk Relationship Specialty Start Date End Date Ran Nuñez MD [address] [place] [address] PCP - General Family Medicine 03/22/19 12/22/20 Hillary Apple MD [address] [place] [address] Hematology and Oncology 03/17/19 Bill Ferrera MD [address] [place] [address] Hematology and Oncology 03/17/19 08/27/21 Tony Dumont MD [address] [place] [address] Hematology and Oncology 03/17/19 Maryjo Reinoso, MISSING PERSONS INVESTIGATOR Steward/Steward[employer] Dining Car 03/17/19 Madyson Clay, PharmD 03/17/19 Dana Lala, LIEUTENANT FIREFIGHTER-BUSINESS SERVICES ASSISTANT [facility] 2nd [place] [address] Oncology 03/17/19 Tiffanie Nguyen, LIEUTENANT FIREFIGHTER-OFFICE SERVICES COORDINATOR [address] [place], [place] [address] 2nd [place] [address] Family Medicine 03/17/19 Stephanie Mahoney, RN Registered Nurse 03/17/19 10/29/21 Alycia Galvan, ROSEMARY 03/17/19 10/29/21 Cesar Tavares MD [address] [place] [address] Referring Physician Medical Oncology 03/23/19 Karie Jones, RN Registered Nurse 06/08/19 10/29/21 Jyo Bob 09/22/19 Addison Shea, PharmD Pharmacist 09/22/19 10/29/21 documented as of this encounter
--- OUTSIDE RECORDS SUMMARY | 2024-08-18 00:24 | XMS_ITS | Encounter Summary ---
Author Organization [facility] Address [address] [place] [address] Care Team Providers Care Library Cataloging Technician Name Role Phone Hillary Apple MD Unavailable [phone] Bill Ferrera MD Unavailable [phone] Tony Dumont MD Unavailable [phone] Maryjo Reinoso [facility] Unavailable Unavailable Madyson Clay PharmD Unavailable Unavaila Dana Galicia [employer]ESSION[employer]-RN ORTHOPAEDIC Unavailable [phone] Tiffanie Nguyen [employer] PROF[employer]-WATER CHEMIST Unavailable [phone] Stephanie Mahoney RN Unavailable Unavailable Alycia Galvan RN Unavailable UnavailRan Mejía MD Primary Care Provider Cesar Tavares MD Unavailable [phone] Karie Jones RN Unavailable Unavailable Joy Bob Unavailable Fanta Addison Weinstein PharmD Unavailable Unavail le Reason for Visit * Reason Onset Date Comments MEDICATION REFILL 10/03/2020 Encounter Details Date Type Department Care Team (Late st Contact Info) Description 10/03/2020 Refill [facility] CLINIC [address] [place] [address] Hillary Apple MD [address] [facility] [place] [address] MEDICATION REFILL Social History Tobacco [...] COVID-19? No / Unsure 09/28/2020 1:10 PM LEAD RETAIL SALES ASSOCIATE documented as of this encounter Functional Status [...] st Contact Info) Description 08/26/2024 11:00 AM LEAD RETAIL SALES ASSOCIATE Office Visit [facility] - Pulmonology [address] [place] [address], [place] [address] Andrew Francis MD [address] [place] [address] DIV OF PULMONARY/[place] [address] documented as of this encounter Visit Diagnoses Not on filedocumented in this encounter Additional Health Concerns Infection Onset Date Last Indicated Resolved Time COVID-19 Confirmed 09/28/2020 09/28/2020 4:33 AM LEAD RETAIL SALES ASSOCIATE documented as of this encounter Care Teams Library Cataloging Technician Relationship Specialty Start Date End Date Ran Nuñez MD [address] [place] [address] PCP - General Family Medicine 03/22/19 12/22/20 Hillary Apple MD [address] [place] [address] Hematology and Oncology 03/17/19 Bill Ferrera MD [address] [place] [address] Hematology and Oncology 03/17/19 08/27/21 Tony Dumont MD [address] [place] [address] Hematology and Oncology 03/17/19 Maryjo Reinoso, FIELD SALES EXECUTIVE Educational/Development Assistant 03/17/19 Madyson Clay, PharmD 03/17/19 Dana Lala, [employer]-RN ORTHOPAEDIC [address] [place], [place] [address]TA [facility] 2nd [place] [address] Oncology 03/17/19 Tiffanie Nguyen, [employer]-WATER CHEMIST [address] [place] [address] 2nd [place] [address] Family Medicine 03/17/19 Stephanie Mahoney, RN Registered Nurse 03/17/19 10/29/21 Alycia Galvan, ROSEMARY 03/17/19 10/29/21 Cesar Tavares MD [address] [place] [address] Referring Physician Medical Oncology 03/23/19 Karie Jones, RN Registered Nurse 06/08/19 10/29/21 Joy Bob 09/22/19 Addison Shea, PharmD Pharmacist 09/22/19 10/29/21 documented as of this encounter
--- OUTSIDE RECORDS SUMMARY | 2024-08-18 00:24 | XMS_ITS | Encounter Summary ---
Author Organization [facility] Address [address] [place] [address] Care Team Providers Care Dining Chair Seat Cushion Trimmer Name Role Phone Hillary Apple MD Unavailable [phone] Bill Ferrera MD Unavailable [phone] Tony Dumont MD Unavailable [phone] Maryjo Reinoso [facility] Unavailable Unavailable Madyson lCay PharmD Unavailable Unavaila Dana Galicia LICENSED PHYSICAL THERAPIST ASSISTANT-BILINGUAL SOCIAL WORKER Unavailable [phone] Tiffanie Nguyen LICENSED PHYSICAL THERAPIST ASSISTANT-POST ACUTE CARE NURSE Unavailable [phone] Stephanie Mahoney RN Unavailable Unavailable Alycia Galvan RN Unavailable UnavailRan Mejía MD Primary Care Provider Cesar Tavares MD Unavailable [phone] Karie Jones RN Unavailable Unavailable Joy Bob Unavailable Fanta Addison Weinstein PharmD Unavailable Unavailab Alida Chang LICENSED PHYSICAL THERAPIST ASSISTANT-POST ACUTE CARE NURSE Primary Care Provider Ran Nuñez MD Primary Care Provider Tony Dumont MD Unavailable [phone] Shalini Segal MD Unavailable [phone] Stefanie Burns RN Unavailable Unavaila Fatemeh Kelly RN Unavailable Unavailable Glenn Hernandez MD Unavailable Chandana Lu MD Unavailable Reason for Visit * Reason Onset Date Comments MEDICATION REFILL 10/01/2020 Encounter Details Date Type Department Care Team ([facility] Contact Info) Description 10/01/2020 Refill [facility] B[facility] CLINIC [address] [place] [address] Hillary Apple MD [address] [facility] [place] [address] MEDICATION REFILL Social History Tobacco Use Types [...] COVID-19? No / Unsure 09/28/2020 1:10 PM COMPUTER AIDED DESIGN OPERATOR documented as of this encounter Functional [...] Upcoming Encounters Date Type Department Care Team ([facility] Contact Info) Description 08/26/2024 11:00 AM COMPUTER AIDED DESIGN OPERATOR Office Visit [facility] - Pulmonology [address] [facility], [place] [phone] Andrew Francis MD [address] [facility] 2L DIV OF PULMONARY/[place] [address] documented as of this encounter Visit Diagnoses Not on filedocumented in this encounter Additional Health Concerns Infection Onset Date Last Indicated Resolved Time COVID-19 Confirmed 09/28/2020 09/28/2020 4:33 AM COMPUTER AIDED DESIGN OPERATOR COVID-19 Under Investigation 11/16/2020 11/16/2020 11/16/2020 6:52 PM CDT COVID-19 Confirmed 11/16/2020 11/16/2020 4:35 AM CDT COVID-19 Under Investigation 12/20/2020 12/20/2020 12/20/2020 6:23 PM CDT COVID-19 Under Investigation 04/21/2021 04/21/2021 2021 6:42 AM CDT documented as of this encounter Care Teams Dining Chair Seat Cushion Trimmer Relationship Specialty Start Date End Date Ran Nuñez MD [address] [place] [address] PCP - General Family Medicine 03/22/19 12/22/20 Alida Marshall APRN-POST ACUTE CARE NURSE [address] [facility] [place] [address] PCP - General Family Medicine 12/23/20 08/29/21 Ran Nuñez MD [address] [place] [address] PCP - General Family Medicine 08/30/21 [place] [address] [facility] [place] [address] PCP - Attributed-[facility] 03/04/23 08/21/23 Hillary Apple MD [facility] [place] [address] Hematology and Oncology 03/17/19 Bill Ferrera MD [address] [place] [address] Hematology and Oncology 03/17/19 08/27/21 Tony Dumont MD [facility] [place] [address] Hematology and Oncology 03/17/19 Maryjo Reinoso, [facility] Hydraulic Bull Riveter Operator 03/17/19 Madyson Clay, PharmD 03/17/19 Dana Lala, LICENSED PHYSICAL THERAPIST ASSISTANT-BILINGUAL SOCIAL WORKER [address] [place] [address] 2nd [place] [address] Oncology 03/17/19 Tiffanie Nguyen, LICENSED PHYSICAL THERAPIST ASSISTANT-POST ACUTE CARE NURSE [address] [place] [address] 2nd [place] [address] Family Medicine 03/17/19 Stephanie Mahoney, RN Registered Nurse 03/17/19 10/29/21 Alycia Galvan, ROSEMARY 03/17/19 10/29/21 Cesar Tavares MD [address] [place] [address] Referring Physician Medical Oncology 03/23/19 Karie Jones, RN Registered Nurse 06/08/19 10/29/21 Joy Bob 09/22/19 Addison Shea, PharmD Pharmacist 09/22/19 10/29/21 Tony Dumont MD [address] [place] [address] Hematology and Oncology 10/30/21 Shalini Segal MD [address] [facility] [place] [address] Barrel Cutter/Oncologis t Hematology and Oncology 10/30/21 Stefanie Burns, ROSEMARY Registered Nurse 10/30/21 Fatemeh Bolaños, RN Registered Nurse 10/30/21 Chandana Lu MD [address] [place] [address] Orthopedic Surgery 03/30/24 documented as of this encounter
--- OUTSIDE RECORDS SUMMARY | 2024-08-18 00:24 | XMS_ITS | Encounter Summary ---
Author Organization [facility] Address [address] [facility] [place] [address] Care Team Providers Care Arrt Technologist Name Role Phone Hillary Apple MD Unavailable [phone] Bill Ferrera MD Unavailable [phone] Tony Dumont MD Unavailable [phone] Maryjo Reinoso [facility] Unavailable Unavailable Madyson Clay PharmD Unavailable Unavaila Dana Galicia BRICK CARRIER-CARD CLOTHIER Unavailable [phone] Tiffanie Nguyen BRICK CARRIER-INTERPRETATIVE DANCER Unavailable [phone] Stephanie Mahoney RN Unavailable Unavailable Alycia Galvan RN Unavailable UnavailRan Mejía MD Primary Care Provider Cesar Tavares MD Unavailable [phone] Karie Jones RN Unavailable Unavailable Joy Bob Unavailable Fanta Addison Weinstein PharmD Unavailable Unavailab le Encounter Details Date Type Department Care Team (Late st Contact Info) Description 10/27/2020 Orders Only [facility] - COVID Vaccine [address] [place] [id number] Alonso Walton MD [address] [place] [address] Need for vaccination Social History [...] COVID-19? No / Unsure 09/28/2020 1:10 PM CALCULUS PROFESSOR documented as of this encounter Functional Status [...] st Contact Info) Description 08/26/2024 11:00 AM CALCULUS PROFESSOR Office Visit [facility] - Pulmonology [address] [place] [address], [place] [address] Andrew Francis MD [address] [place] [address] 2L DIV OF PULMONARY/[place] [address] documented as of this encounter Visit Diagnoses Diagnosis Need for vaccination Need for prophylactic vaccination and inoculation against unspecified single disease documented in this encounter Care Teams Arrt Technologist Relationship Specialty Start Date End Date Ran Nuñez MD [address] [place] [address] PCP - General Family Medicine 03/22/19 12/22/20 Hillary Apple MD [address] [place] [address] Hematology and Oncology 03/17/19 Bill Ferrera MD [address] [place] [address] Hematology and Oncology 03/17/19 08/27/21 Tony Dumont MD [address] [place] [address] Hematology and Oncology 03/17/19 Maryjo Reinoso, IMAGING SCHEDULER Form Designer 03/17/19 Madyson Clay, PharmD 03/17/19 Dana Lala, BRICK CARRIER-CARD CLOTHIER [address] [place] [address] 2nd [place] [address] Oncology 03/17/19 Tiffanie Nguyen, BRICK CARRIER-INTERPRETATIVE DANCER [address] [place] [address] 2nd [place] [address] Family Medicine 03/17/19 Stephanie Mahoney, RN Registered Nurse 03/17/19 10/29/21 Alycia Galvan, RN 03/17/19 10/29/21 Cesar Tavares MD [address] [place] [address] [place] [address] Referring Physician Medical Oncology 03/23/19 Karie Jones, RN Registered Nurse 06/08/19 10/29/21 Joy Bob 09/22/19 Addison Shea, PharmD Pharmacist 09/22/19 10/29/21 documented as of this encounter
--- OUTSIDE RECORDS SUMMARY | 2024-08-18 00:24 | XMS_ITS | Encounter Summary ---
Author Organization [facility] Address [address] [facility] [place] [address] Care Team Providers Care Tc Operator Name Role Phone Hillary Apple MD Unavailable [phone] Bill Ferrera MD Unavailable [phone] Tony Dumont MD Unavailable [phone] Maryjo Reinoso [facility] Unavailable Unavailable Madyson Clay PharmD Unavailable Unavaila Dana Galicia SUPERVISOR LAMP SHADES-LOGISTICS ANALYST Unavailable [phone] Tiffanie Nguyen SUPERVISOR LAMP SHADES-DATA PROCESSING CONTROL CLERK Unavailable [phone] Stephanie Mahoney RN Unavailable Unavailable Alycia Galvan RN Unavailable UnavailRan Mejía MD Primary Care Provider Cesar Tavares MD Unavailable [phone] Karie Jones RN Unavailable Unavailable Joy Bob Unavailable Fanta Addison Weinstein PharmD Unavailable Unavailab le Reason for Visit * Reason Onset Date Comments Cardiac Rehab 11/08/2020 Encounter Details Date Type Department Care Team (Late st Contact Info) Description 11/08/2020 Telephone [facility] - Cardiopulmonary Rehab [address] [place] [address] Dana Smith sr. payroll manager Social History Tobacco Use Types Packs/Day [...] Telephone Encounter - Dana Smith RN - 11/08/2020 3:55 PM CDT Cardiopulmonary rehab: Left message on machine inquiring about interest in attending our outpatientexercise program. Contact number has been provided. Thank you. documented in this encounter Plan of Treatment Upcoming Encounters Date Type Department Care Team (Late st Contact Info) Description 08/26/2024 11:00 AM SUPERSONIC ENGINEER Office Visit [facility] - Pulmonology [address] [place] [address], [place] [address] Andrew Francis MD [address] [place] [address] 2L DIV OF PULMONARY/[place] [address] documented as of this encounter Visit Diagnoses Not on filedocumented in this encounter Care Teams Tc Operator Relationship Specialty Start Date End Date Ran Nuñez MD [address] [place] [address] PCP - General Family Medicine 03/22/19 12/22/20 Hillary Apple MD [facility] [place] [address] Hematology and Oncology 03/17/19 Bill Ferrera MD [address] [place] [address] Hematology and Oncology 03/17/19 08/27/21 Tony Dumont MD [address] [place] [address] Hematology and Oncology 03/17/19 Maryjo Reinoso, HEALTHCARE INSURANCE SALES AGENT Precision Honer 03/17/19 Madyson Clay, PharmD 03/17/19 Dana Lala, SUPERVISOR LAMP SHADES-LOGISTICS ANALYST [address] [place] [address] 2nd [place] [address] Oncology 03/17/19 Tiffanie Nguyen, SUPERVISOR LAMP SHADES-DATA PROCESSING CONTROL CLERK [address] [place] [address] 2nd [place] [address] Family Medicine 03/17/19 Stephanie Mahoney, RN Registered Nurse 03/17/19 10/29/21 Alycia Galvan, ROSEMARY 03/17/19 10/29/21 Cesar Tavares MD [address] [place] [address] [place] [address] Referring Physician Medical Oncology 03/23/19 Karie Joens, RN Registered Nurse 06/08/19 10/29/21 Joy Bob 09/22/19 Addison Shea, PharmD Pharmacist 09/22/19 10/29/21 documented as of this encounter
--- OUTSIDE RECORDS SUMMARY | 2024-08-18 00:25 | XMS_ITS | Encounter Summary ---
Author Organization [facility] Address [address] [facility] [place] [address] Care Team Providers Care Lace Pinner Name Role Phone Hillary Apple MD Unavailable [phone] Bill Ferrera MD Unavailable [phone] Tony Dumont MD Unavailable [phone] Maryjo ReinosoW Unavailable Unavailable Madyson Clay PharmD Unavailable Unavaila Dana Galicia MECHANICAL ASSEMBLY-PENSION FUND MANAGER Unavailable [phone] Tiffanie Nguyen APRN-CIRCULAR CLERK Unavailable [phone] Stephanie Mahoney RN Unavailable Unavailable Alycia Galvan RN Unavailable UnavailRan Mejía MD Primary Care Provider Cesar Tavares MD Unavailable [phone] Karie Jones RN Unavailable Unavailable Joy Bob Unavailable Fanta Addison Weinstein PharmD Unavailable Unavailab le Encounter Details Date Type Department Care Team (Late st Contact Info) Description 05/01/2020 Telephone [facility] BMT CLINIC [address] [place] [address] Tiffanie Nguyen APRN-CIRCULAR CLERK [address] [place] [address] Social History Tobacco Use Types Packs/Day Years [...] Telephone Encounter - Tiffanie Nguyen APRN-CNP - 05/01/2020 6:32 PM CDT Received call from case investigator that Aruelio was refusing to come to clinic today as scheduled due to concerns for cost of billing and ambulance ride. Will discuss with team and plan to contact debbie about ability to get labs and IVIG if possible. [facility]- [facility] documented in this encounter Plan of Treatment Upcoming Encounters Date Type Department Care Team (Late st Contact Info) Description 08/26/2024 11:00 AM SPORTS PHYSIOLOGIST Office Visit [facility] - Pulmonology [address] [place] [address], [place] [address] Andrew Francis MD [address] [place] [address] DIV OF PULMONARY/[place] [address] documented as of this encounter Visit Diagnoses Not on filedocumented in this encounter Additional Health Concerns Infection Onset Date Last Indicated Resolved Time COVID-19 Confirmed 03/06/2020 07/14/2020 0 4:33 AM SPORTS PHYSIOLOGIST documented as of this encounter Care Teams Lace Pinner Relationship Specialty Start Date End Date Ran Nuñez MD [address] [place] [address] PCP - General Family Medicine 03/22/19 12/22/20 Hillary Apple MD [address] [place] [address] Hematology and Oncology 03/17/19 Bill Ferrera MD [address] [place] [address] Hematology and Oncology 03/17/19 08/27/21 Tony Dumont MD [address] [place] [address] Hematology and Oncology 03/17/19 Maryjo Reinoso, GLASSWARE MAKER DEMONSTRATOR Impregnator 03/17/19 Madyson Clay, PharmD 03/17/19 Dana Lala, MECHANICAL ASSEMBLY-PENSION FUND MANAGER [address] [place], [place] [address]TA E 2nd [place] [address] Oncology 03/17/19 Tiffanie Nguyen, MECHANICAL ASSEMBLY-CIRCULAR CLERK [address] [place], [place] [address]TA [facility] 2nd [place] [address] Family Medicine 03/17/19 Stephanie Mahoney, RN Registered Nurse 03/17/19 10/29/21 Alycia Galvan, ROSEMARY 03/17/19 10/29/21 Cesar Tavares MD [address] [place] [address] Referring Physician Medical Oncology 03/23/19 Jones, Karie, RN Registered Nurse 06/08/19 10/29/21 Joy Bob 09/22/19 Addison Shea, PharmD Pharmacist 09/22/19 10/29/21 documented as of this encounter
--- OUTSIDE RECORDS SUMMARY | 2024-08-18 00:25 | XMS_ITS | Encounter Summary ---
Author Organization [facility] Address [address] [facility] [place] [address] Care Team Providers Care Mixer Operator Hot Metal Name Role Phone Hillary Apple MD Unavailable [phone] Bill Ferrera MD Unavailable [phone] Tony Dumont MD Unavailable [phone] Maryjo Reinoso [facility] Unavailable Unavailable Madyson Clay PharmD Unavailable Unavaila Dana Galicia MOTOR EQUIPMENT COMMANDING OFFICER-POLE CUTTER Unavailable [phone] Tiffanie Nguyen MOTOR EQUIPMENT COMMANDING OFFICER-ENAMEL PULVERIZER Unavailable Stephanie Mahoney RN Unavailable Unavailable lAycia Galvan RN Unavailable UnavailRan Mejía MD Primary Care Provider Cesar Tavares MD Unavailable [phone] Karie Jones RN Unavailable Unavailable Joy Bob Unavailable Fanta Addison Weinstein PharmD Unavailable Unavailab le Encounter Details Date Type Department Care Team (Late st Contact Info) Description 07/18/2020 Telephone [facility] B[facility] CLINIC [address] [place] [address] Karie Jones, RN Social History [...] Telephone Encounter - Karie Jones RN - 07/18/2020 11:31 AM CST Informed him of appointments scheduled for 08/31/20. Verbalized understanding ICAL BIOSTATISTICIAN documented in this encounter Plan of Treatment Upcoming Encounters Date Type Department Care Team (Late st Contact Info) Description 08/26/2024 11:00 AM CLINICAL BIOSTATISTICIAN Office Visit [facility] - Pulmonology [address] [place] [address], [place] [address] Andrew Francis MD [address] [place] [address] 2L DIV OF PULMONARY/[place] [address] documented as of this encounter Visit Diagnoses Not on filedocumented in this encounter Additional Health Concerns Infection Onset Date Last Indicated Resolved Time COVID-19 Confirmed 03/06/2020 07/14/2020 0 4:33 AM CLINICAL BIOSTATISTICIAN documented as of this encounter Care Teams Mixer Operator Hot Metal Relationship Specialty Start Date End Date Ran Nuñez MD [address] [place] [address] PCP - General Family Medicine 03/22/19 12/22/20 Hillary Apple MD [address] [place] [address] Hematology and Oncology 03/17/19 Bill Ferrera MD [address] [place] [address] Hematology and Oncology 03/17/19 08/27/21 Tony Dumont MD [address] [place] [address] Hematology and Oncology 03/17/19 Maryjo Reinoso, [facility] Promotional Demonstrator 03/17/19 Madyson Clay, PharmD 03/17/19 Dana Lala, MOTOR EQUIPMENT COMMANDING OFFICER-POLE CUTTER [address] [place] [address] 2nd [place] [address] Oncology 03/17/19 Tiffanie Nguyen, MOTOR EQUIPMENT COMMANDING OFFICER-ENAMEL PULVERIZER [address] [place] [address] 2nd [place] [address] Family Medicine 03/17/19 Stephanie Mahoney, RN Registered Nurse 03/17/19 10/29/21 Alycia Galvan, ROSEMARY 03/17/19 10/29/21 Cesar Tavares MD [address] [place] [address] Referring Physician Medical Oncology 03/23/19 Karie Jones, RN Registered Nurse 06/08/19 10/29/21 Joy Bob 09/22/19 Addison Shea, PharmD Pharmacist 09/22/19 10/29/21 documented as of this encounter
--- OUTSIDE RECORDS SUMMARY | 2024-08-18 00:25 | XMS_ITS | Encounter Summary ---
Author Organization [facility] Address [address] [place] [address] Care Team Providers Care Nurse Practical Name Role Phone Hillary Apple MD Unavailable [phone] Bill Ferrera MD Unavailable [phone] Tony Dumont MD Unavailable [phone] Maryjo Reinoso [facility] Unavailable Unavailable Madyson Clay PharmD Unavailable Unavaila Dana Galicia MARKETING MGR-CONDUCTOR FREIGHT Unavailable [phone] Tiffanie Nguyen APRN-TECHNICAL TRAINING INSTRUCTOR Unavailable [phone] Stephanie Mahoney RN Unavailable Unavailable Alycia Galvan RN Unavailable UnavailRan Mejía MD Primary Care Provider Cesar Tavares MD Unavailable [phone] Karie Jones RN Unavailable Unavailable Joy Bob Unavailable Fanta Addison Weinstein PharmD Unavailable Unavailab le Encounter Details Date Type Department Care Team (Late st Contact Info) Description 07/03/2020 Orders Only [facility] BMT CLINIC [address] [place] [address] Tiffanie Nguyen APRN-TECHNICAL TRAINING INSTRUCTOR [address] [place] [address] Social History Tobacco Use Types Packs/Day Years [...] st Contact Info) Description 08/26/2024 11:00 AM FINANCIAL ANALYSIS ADVISOR Office Visit [facility] - Pulmonology [address] [place] [address], [place] [address] Andrew Francis MD [address] [place] [address] 2L DIV OF PULMONARY/[place] [address] documented as of this encounter Visit Diagnoses Not on filedocumented in this encounter Additional Health Concerns Infection Onset Date Last Indicated Resolved Time COVID-19 Confirmed 03/06/2020 07/14/2020 0 4:33 AM FINANCIAL ANALYSIS ADVISOR documented as of this encounter Care Teams Nurse Practical Relationship Specialty Start Date End Date Ran Nuñez MD [address] [place] [address] PCP - General Family Medicine 03/22/19 12/22/20 Hillary Apple MD [address] [place] [address] Hematology and Oncology 03/17/19 Bill Ferrera MD [address] [place] [address] Hematology and Oncology 03/17/19 08/27/21 Tony Dumont MD [facility] [place] [address] Hematology and Oncology 03/17/19 Maryjo Reinoso, PRODUCTION RECOVERY OPERATOR Dobie Worker 03/17/19 Madyson Clay, PharmD 03/17/19 Dana Lala, MARKETING MGR-CONDUCTOR FREIGHT [address] [facility] [place] [address] Oncology 03/17/19 Tiffanie Nguyen, MARKETING MGR-TECHNICAL TRAINING INSTRUCTOR [facility] 2[place] [address] Family Medicine 03/17/19 Stephanie Mahoney, RN Registered Nurse 03/17/19 10/29/21 Alycia Galvan, RN 03/17/19 10/29/21 Cesar Tavares MD [address] [place] [address] [place] [address] Referring Physician Medical Oncology 03/23/19 Karie Jones, RN Registered Nurse 06/08/19 10/29/21 Joy Bob 09/22/19 Addison Shea, PharmD Pharmacist 09/22/19 10/29/21 documented as of this encounter
--- OUTSIDE RECORDS SUMMARY | 2024-08-18 00:25 | XMS_ITS | Encounter Summary ---
Author Organization [facility] Address [address] [facility] [place] [address] Care Team Providers Care Stitchdown Thread Laster Name Role Phone Hillary Apple MD Unavailable [phone] Bill Ferrera MD Unavailable [phone] Tony Dumont MD Unavailable Maryjo Reinoso [facility] Unavailable Unavailable Madyson Clay PharmD Unavailable Unavaila Dana Galicia COMMERCIAL ACCOUNT OFFICER-WILDLIFE ECOLOGY PROFESSOR Unavailable [phone] Tiffanie Nguyen APRN-PHOTOLITH OPERATOR Unavailable Stephanie Mahoney RN Unavailable Unavailable Alycia Galvan RN Unavailable UnavailRan Mejía MD Primary Care Provider Cesar Tavares MD Unavailable [phone] Karie Jones RN Unavailable Unavailable Joy Bob Unavailable Fanta Addison Weinstein PharmD Unavailable Unavailab le Encounter Details Date Type Department Care Team (Late st Contact Info) Description 07/18/2020 Orders Only [facility] BMT CLINIC [address] [place] [address] Tiffanie Nguyen APRN-PHOTOLITH OPERATOR [address] [place] [address] Frequent headaches Social History Tobacco Use Types Packs/Day Years [...] st Contact Info) Description 08/26/2024 11:00 AM FLY FINISHER Office Visit [facility] - Pulmonology [address] [place] [address], [place] [address] Andrew Francis MD [address] [place] [address] DIV OF PULMONARY/[place] [address] documented as of this encounter Visit Diagnoses Diagnosis Frequent headaches- Primary documented in this encounter Additional Health Concerns Infection Onset Date Last Indicated Resolved Time COVID-19 Confirmed 03/06/2020 07/14/2020 0 4:33 AM FLY FINISHER documented as of this encounter Care Teams Stitchdown Thread Laster Relationship Specialty Start Date End Date Ran Nuñez MD [address] [place] [address] PCP - General Family Medicine 03/22/19 12/22/20 Hillary Apple MD [address] [place] [address] Hematology and Oncology 03/17/19 Bill Ferrera MD [address] [place] [address] Hematology and Oncology 03/17/19 08/27/21 Tony Dumont MD [address] [place] [address] Hematology and Oncology 03/17/19 Maryjo Reinoso, TEACHER AIDE Wellness Ambassador 03/17/19 Madyson Clay, PharmD 03/17/19 Dana Lala, COMMERCIAL ACCOUNT OFFICER-WILDLIFE ECOLOGY PROFESSOR [address] [facility] 2nd [place] [address] Oncology 03/17/19 Tiffanie Nguyen, COMMERCIAL ACCOUNT OFFICER-PHOTOLITH OPERATOR [facility] 2nd [place] [address] Family Medicine 03/17/19 Stephanie Mahoney, RN Registered Nurse 03/17/19 10/29/21 Alycia Galvan, ROSEMARY 03/17/19 10/29/21 Cesar Tavares MD [address] [place] [address] [place] [address] Referring Physician Medical Oncology 03/23/19 Karie Jones, RN Registered Nurse 06/08/19 10/29/21 Joy Bob 09/22/19 Addison Shea, PharmD Pharmacist 09/22/19 10/29/21 documented as of this encounter
--- OUTSIDE RECORDS SUMMARY | 2024-08-18 00:25 | XMS_ITS | Encounter Summary ---
Author Organization [facility] Address [address] [place] [address] Care Team Providers Care Window Assembler Name Role Phone Hillary Apple MD Unavailable [phone] Bill Ferrera MD Unavailable [phone] Tony Dumont MD Unavailable [phone] Maryjo Reinoso [facility] Unavailable Unavailable Madyson Clay PharmD Unavailable Unavaila Dana Glaicia ASSISTANT BASKETBALL COACH-STEWARD/STEWARDESS WINE Unavailable [phone] Tiffanie Nguyen ASSISTANT BASKETBALL COACH-POLICE AND FIRE DISPATCHER Unavailable [phone] Stephanie Mahoney RN Unavailable Unavailable Alycia Galvan RN Unavailable UnavailRan Mejía MD Primary Care Provider Cesar Tavares MD Unavailable [phone] Karie Jones RN Unavailable Unavailable Joy Bob Unavailable Fanta Addison Weinstein PharmD Unavailable Unavailab le Encounter Details Date Type Department Care Team (Late st Contact Info) Description 07/14/2020 Telephone [facility] BMT CLINIC [address] [place] [address] Stefanie Burns, ROSEMARY Social History [...] Contact Info) Description 08/26/2024 11:00 AM DIRECTOR CRITICAL CARE Office Visit [facility] - Pulmonology [address] [place] [address], [place] [address] Andrew Francis MD [address] [place] [address] 2L DIV OF PULMONARY/[place] [address] documented as of this encounter Visit Diagnoses Not on filedocumented in this encounter Additional Health Concerns Infection Onset Date Last Indicated Resolved Time COVID-19 Confirmed 03/06/2020 07/14/2020 0 4:33 AM DIRECTOR CRITICAL CARE documented as of this encounter Care Teams Window Assembler Relationship Specialty Start Date End Date Ran Nuñez MD [address] [place] [address] PCP - General Family Medicine 03/22/19 12/22/20 Hillary Apple MD [address] [place] [address] Hematology and Oncology 03/17/19 Bill Ferrera MD [address] [place] [address] Hematology and Oncology 03/17/19 08/27/21 Tony Dumont MD [address] [place] [address] Hematology and Oncology 03/17/19 Maryjo Reinoso, COMMERCIAL REVIEW APPRAISER Buhr Mill Operator 03/17/19 Madyson Clay, PharmD 03/17/19 Dana Lala, ASSISTANT BASKETBALL COACH-STEWARD/STEWARDESS WINE [address] [facility] [address] [address] Oncology 03/17/19 Tiffanie Nguyen, ASSISTANT BASKETBALL COACH-POLICE AND FIRE DISPATCHER [address] [facility] 2[place] [address] Family Medicine 03/17/19 Stephanie Mahoney, RN Registered Nurse 03/17/19 10/29/21 Alycia Galvan, ROSEMARY 03/17/19 10/29/21 Cesar Tavares MD [address] [place] [address] [place] [address] Referring Physician Medical Oncology 03/23/19 Karie Jones, RN Registered Nurse 06/08/19 10/29/21 Joy Bob 09/22/19 Addison Shea, PharmD Pharmacist 09/22/19 10/29/21 documented as of this encounter
--- OUTSIDE RECORDS SUMMARY | 2024-08-18 00:25 | XMS_ITS | Encounter Summary ---
Author Organization [facility] Address [address] [place] [address] Care Team Providers [employer] Counter Person Name Role Phone Hillary Apple MD Unavailable [phone] Bill Ferrera MD Unavailable [phone] Tony Dumont MD Unavailable [phone] Maryjo Reinoso [facility] Unavailable Unavailable Madyson Clay PharmD Unavailable Unavaila Dana Galicia HOME MANAGER-TECHNICAL SUPPORT ASSOCIATE Unavailable [phone] Tiffanie Nguyne HOME MANAGER-STOCK LIFTER Unavailable [phone] Stephanie Mahoney RN Unavailable Unavailable Alycia Galvan RN Unavailable UnavailRan Mejía MD Primary Care Provider Cesar Tavares MD Unavailable [phone] Karie Jones RN Unavailable Unavailable Joy Bob Unavailable Fanta Addison Weinstein PharmD Unavailable Unavailab le Encounter Details Date Type Department Care Team (Late st Contact Info) Description 06/16/2020 [facility] [address] [place] [address] Hillary Apple MD [address] [facility] [place] [address] Social History Tobacco Use Types Packs/Day Years [...] st Contact Info) Description 08/26/2024 11:00 AM 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 BALANCE WHEEL Office Visit [facility] - Pulmonology [address] [place] [address], [place] [phone] Andrew Francis MD [address] [place] [address] [address] DIV OF PULMONARY/[place] [address] documented as of this encounter Visit Diagnoses Not on filedocumented in this encounter Additional Health Concerns Infection Onset Date Last Indicated Resolved Time COVID-19 Confirmed 03/06/2020 07/14/2020 0 4:33 AM FINAL INSPECTOR BALANCE WHEEL documented as of this encounter Care Teams [employer] Counter Person Relationship Specialty Start Date End Date Ran Nuñez MD [address] [place] [address] PCP - General Family Medicine 03/22/19 12/22/20 [place] [address] [place] [id number] Hematology and Oncology 03/17/19 Bill Ferrera MD [address] [place] [address] Hematology and Oncology 03/17/19 08/27/21 Tony Dumont MD [facility] [place] [address] Hematology and Oncology 03/17/19 Maryjo Reinoso, PROGRAM INSTRUCTOR Board Setter 03/17/19 Madyson Clay, PharmD 03/17/19 Dana Lala, HOME MANAGER-TECHNICAL SUPPORT ASSOCIATE [facility] [facility] [address] [address] Oncology 03/17/19 Tiffanie Nguyen, HOME MANAGER-STOCK LIFTER [address] [place] [address] [address] [place] [address] Family Medicine 03/17/19 Stephanie Mahoney, RN Registered Nurse 03/17/19 10/29/21 Alyica Galvan, ROSEMARY 03/17/19 10/29/21 Cesar Tavares MD [address] [place] [phone] Referring Physician Medical Oncology 03/23/19 Karie Jones, RN Registered Nurse 06/08/19 10/29/21 Joy Bob 09/22/19 Addison Shea, PharmD Pharmacist 09/22/19 10/29/21 documented as of this encounter
--- OUTSIDE RECORDS SUMMARY | 2024-08-18 00:25 | XMS_ITS | Encounter Summary ---
Author Organization [facility] Address [address] [place] [address] Care Team Providers Care Director Reactor Projects Name Role Phone Hillary Apple MD Unavailable [phone] Bill Ferrera MD Unavailable [phone] Tony Dumont MD Unavailable [phone] Maryjo Reinoso [employer]W SUPERVISOR Unavailable Unavailable Madyson Clay PharmD Unavailable Unavaila Dana Galicia [employer]ER Unavailable [phone] Tiffanie Nguyen APRN-OXYACETYLENE WELDER Unavailable [phone] Stephanie Mahoney RN Unavailable Unavailable Alycia Galvan RN Unavailable UnavailRan Mejía MD Primary Care Provider Cesar Tavares MD Unavailable [phone] Karie Jones RN Unavailable Unavailable Joy Bob Unavailable Fanta Addison Weinstein PharmD Unavailable Unavailab le Reason for Visit * Oncology Prior Authorization (Routine) - Closed Specialty Diagnoses / Procedures Referred By Contac t Referred To Contact Diagnoses B-cell lymphoma, unspecified B-cell lymphoma type, unspecified body region (HCC) S/P splenectomy Acute respiratory failure with hypoxia (HCC) Pneumonia due to COVID-19 virus Procedures RI INJ IG GAMUNEX IV NONLYO 500 MG Tiffanie Nguyen APRN-OXYACETYLENE WELDER [address] [place] [address] [facility] [address] [place] [address] Referral ID Status Reason Start Date Expiration Date Visits Re quested Visits Authorized [id number] Closed 04/24/2020 04/24/2021 1 1 Encounter Details Date Type Department Care Team (Latest Contact Info) Description 07/14/2020 10:32 AM CLERICAL ASSISTANT - 07/14/2020 11:59 PM CLERICAL ASSISTANT Hospital Encounter [facility] [address] [place] [address] Tiffanie Nguyen, [employer]-OXYACETYLENE WELDER [address] [place] [address] Discharge Disposition: Home or Self [...] Sign Reading Time Taken Comments Blood Pressure 121/72 07/14/2020 12:45 PM CLERICAL ASSISTANT Pulse 108 07/14/2020 12:45 PM CLERICAL ASSISTANT Temperature 38.1 ??C (100.6 ??F) 07/14/2020 12:45 PM CLERICAL ASSISTANT Respiratory Rate 20 07/14/2020 12:45 PM CLERICAL ASSISTANT Oxygen Saturation 99% 07/14/2020 12:45 PM CLERICAL ASSISTANT Inhaled Oxygen Concentration - - Weight - [...] times daily 360 tablet 3 06/07/2020 11/28/2020 apixaban (ELIQUIS) 5 MG tablet Take 1 tablet by mouth 2 times daily 180 tablet 3 11/10/2019 08/31/2020 clonazePAM (KLONOPIN) 0.5 MG tablet Take 1 tablet by mouth nightly as needed for Anxiety 30 tablet 07/14/2020 08/10/2020 diclofenac sodium EC (VOLTAREN) 75 MG tablet TK 1 T PO BID PRF PAIN 06/05/202006/30 DULERA 100-5 MCG/ACT inhaler 2 PUFFS PO Q 12 H 1 Inhaler 11 07/03/2020 08/09/2020 escitalopram (LEXAPRO) 20 MG tablet Take 1 [...] hours as needed for Pain 60 tablet 07/14/2020 08/10/2020 oxyCODONE, immediate release, (ROXICODONE) 5 MG tablet [...] times daily 60 tablet 5 08/11/2019 03/13/2021 predniSONE (DELTASONE) 5 MG tablet Take 1 tablet by mouth once daily 30 tablet 3 07/04/2020 08/31/2020 prochlorperazine (COMPAZINE) 10 MG tablet Take 10 mg by mouth every 6 hours as needed 04/27/2019 12/20/2021 rOPINIRole (REQUIP) 0.25 MG tabletIndications:Re stless Leg Syndrome Take 1 tablet by mouth at bedtime Reasons: Restless Leg Syndrome 90 tablet 3 10/29/2019 01/02/2021 saline nasal spray (OCEAN; BABY AYR) 0.65 % nasal spray [place] 2 sprays into each nostril every 2 hours as needed for Dry Nose 04/05/2020 12/20/2021 sulfamethoxazole-tri methoprim (BACTRIM DS; SEPTRA DS) 800-160 MG tabletIndications:PJ P prophylaxis s/p stem cell transplant Take 1 tablet by mouth every Friday, Friday & Friday Reasons: PJP prophylaxis s/p stem cell transplant 12 tablet 3 11/01/2019 01/02/2021 traMADol (ULTRAM) 50 MG tablet TK 1 T PO Q 6 H PRN 06/02/2020 08/31/19 21 vitamin D3-cholecalciferol (CHOLECALCIFEROL) 25 MCG (1000 UNITS) tablet Take 2 tablets by mouth once daily 60 tablet 3 07/04/2020 11/03/2020 documented as of this encounter Progress Notes * Stefanie Burns RN - 07/14/2020 12:16 PM CST Patient presented today for visit including re-vaccination following autologous hematopoetic stem cell transplant (Day 0 10/20/2019). Reviewed titer history and planned immunizations with interdisciplinary team. No significant interactions noted among immunizations to be given today. BMT Vaccination Screening reviewed (patient denied history of serious immunization reaction including seizures/confusion within 1 week post vaccine, and history of Guillan-[place] Syndrome within 6 weeks post influenza vaccine). Patient afebrile today and without signs/symptoms of infection. Education provided on vaccines to be administered today, including necessity of re-vaccination after transplant, to report signs and symptoms of adverse reactions, and possible side effects of vaccinations including mild soreness at injection sites. Patient verbalized understanding and agreement. Shingrix, IPV, Twinrix, & DTaP vaccinations given and explained. Patient tolerated injections well. Next immunization appt TBD; patient also needs to see management specialist so BMT f/u will be scheduled for same day once pulmonology appt scheduled.. 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 INTERVAL HISTORY: Aurelio presents to clinic via wheelchair He is feeling more down and depressed, feels like the can't do anything at home, and is limited to do anything due to his O2 requirement. Does feel depressed and thinks if life would be easier for his family members if he wasn't here, but hasn't developed a plan and has no suicidal ideation. No thoughts of hurting others. During the day he is depressed and at night he lays in a bed and can't sleep due to mind wont turn off . O2 2L at rest, and has been increasing to 8L with activity. When he'll walk to the kitchen and backto his chair, he'll drop his O2 sats to the 70s, HR will go up to the 130s. He'll then sit down andrest and O2 quickly comes back up. If he's struggling more to recover then he'll put on his NRB andincrease O2 to 15L. Once HR recovers he'll then get a migraine, which is resolved with oxycodone. Th is happens about 1x/day and hasn't had relief of COOPER with Tylenol or Ibuprofen. BARNES stable, continues to have dry cough. Does have nasal congestion and blows nose with thick colored mucous. No F/C at home, did develop a low grade temp of 100.6 during IVIG infusion (see below) ROS: A comprehensive review of systems was [...] 2 puffs by mouthevery 4 hours ??? apixaban (ELIQUIS) 5 MG tablet Take 1 tablet by mouth 2 times daily (Patient not taking: Reported on 07/14/2020) ??? clonazePAM (KLONOPIN) 0.5 MG tablet Take 1 tablet by mouth nightly as needed for Anxiety ??? diclofenac sodium EC (VOLTAREN) 75 MG tablet TK 1 T PO BID PRF PAIN ??? DULERA 100-5 MCG/ACT inhaler 2 PUFFS PO Q 12 H ??? escitalopram (LEXAPRO) 20 MG tablet Take [...] every 8 hours as needed for Pain ??? penicillin v potassium (VEETIDS) 250 MG tablet Take 1 tablet by mouth 2 times daily ??? predniSONE (DELTASONE) 5 MG tablet Take 1 tablet by mouth once daily ??? prochlorperazine (COMPAZINE) 10 MG tablet Take 10 mg by mouth every 6 hours as needed ??? rOPINIRole (REQUIP) 0.25 MG tablet Take 1 tablet by mouth at bedtime Reasons: Restless Leg Syndrome ??? saline nasal spray (OCEAN; BABY AYR) 0.65 % nasal spray [place] 2 sprays into each nostril every 2 hours as needed for Dry Nose ??? sulfamethoxazole-trimethoprim (BACTRIM DS; SEPTRA DS) 800-160 MG tablet Take 1 tablet by mouth every Friday, Friday & Friday Reasons: PJP prophylaxis s/p stem cell transplant ??? traMADol (ULTRAM) 50 MG tablet TK 1 T PO Q 6 H PRN ??? vitamin D3-cholecalciferol (CHOLECALCIFEROL) 25 MCG (1000 UNITS) tablet Take 2 tablets by mouthonce daily Current Facility-Administered Medications Medication ??? immune globulin (GAMUNEX-C) 10 % 30 g VITALS: Vitals: 07/14/20 1041 07/14/20 1143 07/14/20 1226 07/14/20 1245 BP: 143/80 130/78 137/82 121/72 Pulse: (!) 125 (!) 118 (!) 117 108 Resp: Temp: 99.1 ??F 100 ??F (!) 100.2 ??F (!) 100.6 ??F SpO2: 98% 98% 98% 99% Wt Readings from Last 3 Encounters: 06/16/20 128.4 kg (283 lb 0.3 oz) 03/30/20 113.7 kg (250 lb 10.6 oz) 02/26/20 120.2 kg (265 lb) PHYSICAL EXAM: General appearance - alert, well appearing, and in no distress Mental status - alert, oriented to person, place, and time Chest - diminished breath sounds, tachypnic, on 2L during visit Heart - normal rate, regular rhythm, normal S1, S2, no murmurs, rubs, clicks or gallops Abdomen - soft, nontender, nondistended, no masses or organomegaly Extremities - peripheral pulses normal, no pedal edema, no clubbing or cyanosis Skin - normal coloration and turgor, no rashes, no suspicious skin lesions noted PIV - C/D/I LABS: Recent Labs Component Name 07/14/20 1044 06/16/20 1125 04/05/20 0004 03/18/20 2357 03/18/20 2357 WBC 14.9* 14.6* 10.4 - 16.8* RBC 4.84 4.56 3.27* - 3.42* HGB 11.1* 11.3* 9.6* - 10.0* HCT 35.7* 35.5* 30.1* - 30.1* MCV 73.8* 77.9* 92.0 - 88.0 MCH 22.9* 24.8* 29.4 - 29.2 MCHC 31.1* 31.8* 31.9* - 33.2 PLTCOUNT 582* 549* 275 - 188 RDWSD 52.4* 56.5* 79.8* - 62.7* RDW 20.4* 20.5* 24.3* - 21.2* MPV 10.1 9.5 12.9* - - NRBCABS 0.03* 0.02* 0.50* - 1.83* NRBCAUTOPCT 0.2* 0.1* 4.8* - 10.9* NEUTPCT 70.9* 66.4 70.6* - - LYMPHSPCT 20.8 21.1 13.7* - - MONOPCT 5.8 7.9 9.1 - - EOSPCT 1.2 3.3 2.8 - - BASOPCT 0.6 0.8 0.5 - - IMMGRANSPCT 0.7 0.5 3.3* - - NEUTABS 10.6* 9.7* 7.4* - 15.96* LYMPHS 3.1* 3.1* 1.4 - 0.17* MONO 0.87* 1.15* 0.95* - 0.50 EOS 0.18 0.48* 0.29 - - BASO 0.09* 0.12* 0.05 - - TOTCELLCNT - - - - 100 - = values in this interval not displayed. Recent Labs Component Name 07/14/20 1044 06/16/20 1125 04/05/20 0003 BUN 12 13 18 CREATININE 0.9 0.9 0.8 NA 138 141 139 POTASSIUM 3.8 4.3 3.8 CL 99 106 102 CO2 27 23 31* CALCIUM 9.5 10.0 8.8 PROT 7.1 7.1 6.1 ALB 3.3* 3.4 2.4* TBILI 0.2 0.1* 0.2 ALKPHOS 122 159* 104 ALT 26 38 44 AST 19 24 18 ANIONGAP 16 16 10 BCR 13 14 23 OSMOLALITY 287 292 291 AGRATIO 0.9* 0.9* 0.6* EGFR >60 >60 >60 Recent Labs Component Name 07/14/20 1044 06/16/20 1125 04/05/20 0003 MAGNESIUM 1.6 1.9 1.9 Recent Labs Component Name 07/14/20 1044 06/16/20 1125 04/05/20 0003 PHOS 2.6 3.1 3.5 IgG (07/14/20) 467 IVIG given today ASSESSMENT/PLAN: MARCELLO LUIS is a 50 year old male, who is Day +268 (Day 0 is 10/20/19) of an autologous [...] that time -Covid from bronch 03/07 and [facility] [employer] [facility] swab 03/07 both positive -received remdesivir 03/08 - 03/12 & convalescent plasma 03/10 -completed steroid taper, stim test today (07/14/20): 23.6, can stop prednisone -continue Dulera inhaler BID and albuterol PRN -O2 NC to keep sats >90, increase O2 to 10 L with ambulation rather than 8L to avoid hypoxic episodes -plan IVIG monthly x 6 months, dose #4 given today (07/14/20) -Covid IgG negative and RVP continues to be positive (last check 06/16/20, repeat pending today 07/14/10). Although guidelines in immunocompromised patients recommends isolating for 8 weeks, which Aurelio is clearly past, we will continue to isolate him in the BMT clinic to minimize exposures. Discussed with ID Dr. Damian possibility of adding more steroidos, as his hapto is >500, but this is not needed at this time -refer to Dr. Francis outpatient -unlikely to have antibodies due to B cell lymphoma treatment, likely permanent damage and lungs are scarred/fibrotic Anemia -Hgb remains low -iron low at 20 -start ferrous sulfate 325 mg daily Migraine Headaches -occur when O2 drops and HR increases, only a few times per week -refer to neurology for workup non-urgently -oxycodone PRN, has trialed many other agents with minimal relief Fever During IVIG -temp of 100.6 at end of IVIG infusion. Had also received vaccines the hour before hand -no F/C at home -Tylenol 650 mg x 1 given in clinic -follow temp at home and call if remains febrile Anxiety/Depression - Lexapro 10 mg daily>>increase to 20 mg daily - start klonopin 0.5 mg QHS - enforced to call 911 [...] B 07/14/2020 ??? HIB-PRP-T 4 DOSE 08/11/2019, 06/16/2020 ??? MENINGOCOCCAL MCV4O 08/11/2019, 06/16/2020 ??? PNEUMOCOCCAL PPSV23 08/11/2019 ??? POLIO IPV 07/14/2020 ??? Pneumococcal Pcv13 Conj 06/16/2020 ??? Zoster Hzv Vacc Recombinant Inj Im 07/14/2020 Discharge Planning: Patients preferred contact information: cell Caregiver: sister, girlfriend Preferred D/C Pharmacy: [facility] Intended lodging: home Referring provider: Cesar Tavares Disposition: RTC in 4 weeks visit with basic, IgG, IVIG and vaccines, and to see Dr. Francis if able [facility] ICAL ASSISTANT documented in this encounter Plan of Treatment Upcoming Encounters Date Type Department Care Team (Late st Contact Info) Description 08/26/2024 11:00 AM CLERICAL ASSISTANT Office Visit [facility] - Pulmonology [address] [place] [address], [place] [id number] Andrew Francis MD [address] [place] [address] [address] DIV OF PULMONARY/[place] [address] documented as of this encounter Procedures Procedure Name Priority Date/Time Associated Diagnosis Comments ACTH 60 MINUTES Routine 07/14/2020 12:04 PM CLERICAL ASSISTANT Anemia due to other cause, not classified Diffuse large B-cell lymphoma, 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 bone marrow transplant (HCC) SARS-COV-2 (COVID-19) IN HOUSE Routine 07/14/2020 11:21 AM CLERICAL ASSISTANT Pneumonia due to COVID-19 virus SARS-COV-2 (COVID-19) ANTIBODY IGG Routine 07/14/2020 10:44 AM CLERICAL ASSISTANT Pneumonia due to COVID-19 virus ACTH CORTISOL BASELINE Routine 0 10:44 AM CLERICAL ASSISTANT Anemia due to other cause, not classified Diffuse large B-cell lymphoma, 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 bone marrow transplant (HCC) TRANSFERRIN Routine 07/14/2020 10:44 AM CLERICAL ASSISTANT Anemia due to other cause, not classified Diffuse large B-cell lymphoma, 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 bone marrow transplant (HCC) VITAMIN D 1,25 DIHYDROXY Routine 07/14/2020 10:44 AM CLERICAL ASSISTANT Anemia due to other cause, not classified Diffuse large B-cell lymphoma, 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 bone marrow transplant (HCC) RETIC COUNT Routine 07/14/2020 10:44 AM CLERICAL ASSISTANT Anemia due to other cause, not classified Diffuse large B-cell lymphoma, 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 bone marrow transplant (HCC) RBC MORPHOLOGY Routine 07/14/2020 10:44 AM CLERICAL ASSISTANT Diffuse large B-cell lymphoma, unspecified body region (HCC) CBC W AUTO DIFFERENTIAL STAT 07/14/2020 10:44 AM CLERICAL ASSISTANT Diffuse large B-cell lymphoma, unspecified body region (HCC) COMPREHENSIVE METABOLIC PANEL STAT 07/14/2020 10:44 AM CLERICAL ASSISTANT Diffuse large B-cell lymphoma, unspecified body region (HCC) PHOSPHORUS BLOOD STAT 07/14/2020 10:4 4 AM CLERICAL ASSISTANT Diffuse large B-cell lymphoma, unspecified body region (HCC) MAGNESIUM BLOOD STAT 07/14/2020 10:44 AM CLERICAL ASSISTANT Diffuse large B-cell lymphoma, unspecified body region (HCC) IRON BLOOD Routine 07/14/2020 10:44 AM CLERICAL ASSISTANT Anemia due to other cause, not classified Diffuse large B-cell lymphoma, 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 bone marrow transplant (HCC) FOLATE Routine 07/14/2020 10:44 AM CLERICAL ASSISTANT Anemia due to other cause, not classified Diffuse large B-cell lymphoma, 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 bone marrow transplant (HCC) VITAMIN B12 Routine 07/14/2020 10:44 AM CLERICAL ASSISTANT Anemia due to other cause, not classified Diffuse large B-cell lymphoma, 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 bone marrow transplant (HCC) IGG BLOOD Routine 07/14/2020 10:44 AM CLERICAL ASSISTANT Diffuse large B-cell lymphoma, unspecified body region (HCC) HAPTOGLOBIN Routine 07/14/2020 10:44 AM CLERICAL ASSISTANT Anemia due to other cause, not classified Diffuse large B-cell lymphoma, 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 bone marrow transplant (HCC) documented in this encounter Results * ACTH 60 MINUTES (07/14/2020 12:04 PM CLERICAL ASSISTANT) Cortisol 60 Min 23.6 >=20.0 mcg/dL 07/14/2020 1:00 PM CLERICAL ASSISTANT [facility] Blood BLOOD SPECIMEN / Unknown Venipuncture / Unknown 07/14/2020 12:04 PM CLERICAL ASSISTANT 07/14/2020 12:16 PM CLERICAL ASSISTANT Tiffanie Nguyen [facility]YAC[facility]YLEN[facility] WEL[facility] LAB - CHEMISTRY ORDERABLES Performing Organization Address [facility]/State/ZIP Co de Phone Number [address] [address], [facility] [[email or web address]] [phone] * (ABNORMAL) SARS-COV-2 (COVID-19) IN HOUSE (07/14/2020 11:21 AM CLERICAL ASSISTANT) COVID-19 PCR Detected( AA) Not detected 07/14/2020 6:53 PM CLERICAL ASSISTANT [facility] Microbiology SPECIMEN FROM NASOPHARYNGEAL STRUCTURE / Unknown Collection / Unknown 07/14/2020 11:21 AM CLERICAL ASSISTANT 07/14/2020 11:33 AM CLERICAL ASSISTANT Narrative [facility] - 07/14/2020 6:53 PM CLERICAL ASSISTANT This nucleic acid amplification assay performance was validated by [facility]. This test has been authorized [...] assay are available upon request. Tiffanie [facility] - MICROBIOL OGY ORDERABLES [facility] [address] [place] [address], [facility] [[email or web address]] [phone] * (ABNORMAL) RBC MORPHOLOGY (07/14/2020 10:44 AM CLERICAL ASSISTANT) Anisocytosis 1+(A) None 07/14/2020 12:03 PM CLERICAL ASSISTANT [facility] Macrocytosis 1+(A) None 07/14/2020 12:03 PM CLERICAL ASSISTANT [facility] [place] Bodies 2+(A) None 07/14/2020 12:03 PM CLERICAL ASSISTANT [facility] Target Cells 1+(A) None 07/14/2020 12:03 PM CLERICAL ASSISTANT [facility] Blood BLOOD SPECIMEN / Unknown Venipuncture / Unknown 07/14/2020 10:44 AM CLERICAL ASSISTANT 07/14/2020 11:07 AM CLERICAL ASSISTANT Tiffanie Nguyen [facility] LAB - HEMATOLOG Y ORDERABLES [facility] [address] [place] [address], [place] [phone] * SARS-COV-2 (COVID-19) ANTIBODY IGG (07/14/2020 10:44 AM CLERICAL ASSISTANT) CoV2 IGG Negative 07/14/2020 10:16 PM CLERICAL ASSISTANT [facility] Blood BLOOD SPECIMEN / Unknown Venipuncture / Unknown 07/14/2020 10:44 AM CLERICAL ASSISTANT 07/14/2020 11:27 AM CLERICAL ASSISTANT Narrative [facility] - 07/14/2020 10:16 PM CLERICAL ASSISTANT This serologic based test was developed by [employer] and its performance characteristics determined by [facility]. This test has not [...] due to past or present infection with tdo-OHNV-WkH-2 coronavirus strains. Rigorous scientific studies have not been completed to determine if detectable IgG to SARS-CoV-2 confers protective immunity. Tiffanie Nguyen [facility] - CHEMISTRY ORDERABLES [address] [address], [facility] [[email or web address]] [phone] * (ABNORMAL) IGG BLOOD (07/14/2020 10:44 AM CLERICAL ASSISTANT) IgG 467(L) 540-1,822 mg/dL 07/14/2020 12:05 PM CLERICAL ASSISTANT [facility] Blood BLOOD SPECIMEN / Unknown Venipuncture / Unknown 07/14/2020 10:44 AM CLERICAL ASSISTANT 07/14/2020 11:27 AM CLERICAL ASSISTANT Tiffanie Nguyen [facility] LAB - CHEMISTRY ORDERABLES [address] [address], [place] [phone] * PHOSPHORUS BLOOD (07/14/2020 10:44 AM CLERICAL ASSISTANT) Pathologist [facility] Phosphorus 2.6 2.3 - 4.7 mg/dL 07/14/2020 11:36 AM [facility] Blood BLOOD SPECIMEN / Unknown Venipuncture / Unknown 07/14/2020 10:44 AM CLERICAL ASSISTANT 07/14/2020 11:07 AM CLERICAL ASSISTANT Tiffanie Nguyen [facility] - CHEMISTRY ORDERABLES [facility] [address] [place] [address], [facility] [[email or web address]] [phone] * MAGNESIUM BLOOD (07/14/2020 10:44 AM CLERICAL ASSISTANT) [facility] Magnesium 1.6 1.6 - 2.6 mg/dL 07/14/2020 11:36 AM [facility] Blood BLOOD SPECIMEN / Unknown Venipuncture / Unknown 07/14/2020 10:44 AM CLERICAL ASSISTANT 07/14/2020 11:07 AM CLERICAL ASSISTANT Tiffanie Nguyen [facility] - CHEMISTRY ORDERABLES [facility] [address] [place] [address], [facility] [[email or web address]] [phone] * (ABNORMAL) CBC W AUTO DIFFERENTIAL (07/14/2020 10:44 AM CLERICAL ASSISTANT) [facility] WBC 14.9(H) 3.5 - 10.5 10? 3 /uL 07/14/2020 11:18 AM [facility] RBC 4.84 4.30 - 5.70 10? 6 /uL 07/14/2020 11:18 AM [facility] Hemoglobin 11.1(L) 13.5 - 17.5 g/dL 07/14/2020 11:18 AM [facility] Hematocrit 35.7(L) 39.0 - 50.0 % 07/14/2020 11:18 AM [facility] MCV 73.8(L) 81.0 - 97.0 fL 07/14/2020 11:18 AM [facility] MCH 22.9(L) 28.0 - 34.0 pg 07/14/2020 11:18 AM [facility] MCHC 31.1(L) 32.0 - 36.0 g/dL 07/14/2020 11:18 AM [facility] Platelet Count 582(H) 150 - 400 10? 3 /uL 07/14/2020 11:18 AM [facility] RDW-SD 52.4(H) 36.0 - 50.0 fL 07/14/2020 11:18 AM [facility] RDW-CV 20.4(H) 11.2 - 14.8 % 07/14/2020 11:18 AM [facility] MPV 10.1 9.3 - 12.8 fL 07/14/2020 11:18 AM [facility] nRBC Absolute 0.03(H) 0 10? 3 /uL 07/14/2020 11:18 AM [facility] nRBC Auto 0.2(H) 0 /100 WBC 07/14/2020 11:18 AM [facility] Neutrophils % 70.9(H) 35.0 - 70.0 % 07/14/2020 11:18 AM [facility] Lymphocytes % 20.8 19.7 - 55.1 % 07/14/2020 11:18 AM [facility] Monocytes % 5.8 3.0 - 15.0 % 07/14/2020 11:18 AM [facility] Eosinophils % 1.2 0.0 - 6.0 % 07/14/2020 11:18 AM [facility] Basophil % 0.6 0.0 - 1.5 % 07/14/2020 11:18 AM [facility] Neutrophils Absolute 10.6(H) 1.6 - 7.0 10? 3 /uL 07/14/2020 11:18 AM [facility] Lymphocyte Absolute 3.1(H) 0.8 - 2.9 10? 3 /uL 07/14/2020 11:18 AM [facility] Monocytes Absolute 0.87(H) 0.14 - 0.66 10? 3 /uL 07/14/2020 11:18 AM [facility] Eosinophils Absolute 0.18 0.00 - 0.45 10? 3 /uL 07/14/2020 11:18 AM [facility] Basophils Absolute 0.09(H) 0.00 - 0.06 10? 3 /uL 07/14/2020 11:18 AM [facility] Immature Granulocytes % 0.7 0.0 - 1.0 % 07/14/2020 11:18 AM [facility] Blood BLOOD SPECIMEN / Unknown Venipuncture / Unknown 07/14/2020 10:44 AM CLERICAL ASSISTANT 07/14/2020 11:07 AM CLERICAL ASSISTANT Tiffanie Nguyen [facility] - HEMATOLOG Y ORDERABLES [facility] [facility] [address] [place] [address], [facility] [[email or web address]] [phone] * (ABNORMAL) COMPREHENSIVE METABOLIC PANEL (07/14/2020 10:44 AM [facility]) BUN 12 7 - 26 mg/dL 07/14/2020 11:36 AM [facility] Creatinine 0.9 0.6 - 1.2 mg/dL 07/14/2020 11:36 AM [facility] Sodium 138 136 - 145 mmol/L 07/14/2020 11:36 AM [facility] Potassium 3.8 3.5 - 4.5 mmol/L 07/14/2020 11:36 AM [facility] Chloride 99 98 - 107 mmol/L 07/14/2020 11:36 AM [facility] CO2 27 22 - 29 mmol/L 07/14/2020 11:36 AM [facility] Glucose 123(H) 70 - 115 mg/dL 07/14/2020 11:36 AM [facility] Calcium 9.5 8.4 - 10.2 mg/dL 07/14/2020 11:36 AM [facility] Protein Total 7.1 6.0 - 8.3 g/dL 07/14/2020 11:36 AM [facility] Albumin 3.3(L) 3.4 - 5.0 g/dL 07/14/2020 11:36 AM [facility] Bilirubin Total 0.2 0.2 - 1.2 mg/dL 07/14/2020 11:36 AM [facility] Alkaline Phosphatase 122 40 - 150 Units/L 07/14/2020 11:36 AM [facility] ALT 26 0 - 55 Units/L 07/14/2020 11:36 AM [facility] AST 19 5 - 34 Units/L 07/14/2020 11:36 AM [facility] Anion Gap 16 8 - 18 07/14/2020 11:36 AM [facility] BUN/Creatinine Ratio 13 7 - 23 07/14/2020 11:36 AM [facility] Osmolality Calculated 287 270 - 300 mOsm/kg 07/14/2020 11:36 AM [facility] Albumin/Globulin Ratio 0.9(L) 1.1 - 2.3 07/14/2020 11:36 AM [facility] eGFR >60 >60 mL/min/1.7 3 m2 07/14/2020 11:36 AM [facility] Blood BLOOD SPECIMEN / Unknown Venipuncture / Unknown 07/14/2020 10:44 AM CLERICAL ASSISTANT 07/14/2020 11:07 AM CLERICAL ASSISTANT Tiffanie Nguyen [facility] - CHEMISTRY ORDERABLES [address] [address], [facility] [[email or web address]] [phone] * ACTH CORTISOL BASELINE (07/14/2020 10:44 AM CLERICAL ASSISTANT) Cortisol Baseline 13.4 No Reference Range Established mcg/dL 07/14/2020 11:50 AM [facility] Blood BLOOD SPECIMEN / Unknown Venipuncture / Unknown 07/14/2020 10:44 AM CLERICAL ASSISTANT 07/14/2020 11:07 AM CLERICAL ASSISTANT Tiffanie Nguyen [facility] - CHEMISTRY ORDERABLES [address] [address], [facility] [[email or web address]] [phone] * VITAMIN D 1,25 DIHYDROXY (07/14/2020 10:44 AM CLERICAL ASSISTANT) Vitamin D, 1,25 Dihydroxy 43.1 19.9 - 79.3 pg/mL 07/16/2020 12:26 AM CLERICAL ASSISTANT [employer] ([facility]) Comment: INTERPRETIVE INFORMATION: Vitamin D, 1,25-Dihydroxy This test is primarily indicated during patient evaluation for hypercalcemia and renal failure. A normal result does not rule out Vitamin D deficiency. The recommended test for diagnosing Vitamin D deficiency is Vitamin D 25-hydroxy. Performed By: [facility] [employer] [address] [place] [address] Cloth Cutting Machine Operator: Clare Linda MD Blood BLOOD SPECIMEN / Unknown Venipuncture / Unknown 07/14/2020 10:44 AM CLERICAL ASSISTANT 07/14/2020 11:27 AM CLERICAL ASSISTANT Lara Patrick [facility] - CHEMISTRY ORDERABLES Performing Organization Address City/[facility]/ZIP Co de Phone Number [address] * (ABNORMAL) TRANSFERRIN (07/14/2020 10:44 AM CLERICAL ASSISTANT) Transferrin 196 174 - 382 mg/dL 07/14/2020 12:05 PM CLERICAL ASSISTANT [facility] Transferrin Saturation % 8(L) 16 - 50 % 07/14/2020 12:05 PM [facility] Blood BLOOD SPECIMEN / Unknown Venipuncture / Unknown 07/14/2020 10:44 AM CLERICAL ASSISTANT 07/14/2020 11:27 AM CLERICAL ASSISTANT Lara Patrick [facility] - CHEMISTRY ORDERABLES Performing Organization Address City/[facility]/ZIP Co de Phone Number [address] [address], [facility] [[email or web address]] [phone] * (ABNORMAL) IRON BLOOD (07/14/2020 10:44 AM CLERICAL ASSISTANT) Iron 20(L) 50 - 175 mcg/dL 07/14/2020 12:05 PM [facility] Blood BLOOD SPECIMEN / Unknown Venipuncture / Unknown 07/14/2020 10:44 AM CLERICAL ASSISTANT 07/14/2020 11:27 AM CLERICAL ASSISTANT Lara Patrick [facility] - CHEMISTRY ORDERABLES [facility] [address] [place] [address], [facility] [[email or web address]] [phone] * VITAMIN B12 (07/14/2020 10:44 AM CLERICAL ASSISTANT) Vitamin B12 544 213 - 816 pg/mL 07/14/2020 12:05 PM CLERICAL ASSISTANT [facility] Blood BLOOD SPECIMEN / Unknown Venipuncture / Unknown 07/14/2020 10:44 AM CLERICAL ASSISTANT 07/14/2020 11:07 AM CLERICAL ASSISTANT Tiffanie Alvess [facility] - CHEMISTRY ORDERABLES [address] [address], [facility] [[email or web address]] [phone] * RETIC COUNT (07/14/2020 10:44 AM CLERICAL ASSISTANT) Reticulocyte % 1.1 0.4 - 2.5 % 07/14/2020 11:17 AM CLERICAL ASSISTANT [facility] Reticulocyte Absolute 0.05 0.02 - 0.13 10? 6 /uL 07/14/2020 11:17 AM CLERICAL ASSISTANT [facility] Blood BLOOD SPECIMEN / Unknown Venipuncture / Unknown 07/14/2020 10:44 AM CLERICAL ASSISTANT 07/14/2020 11:07 AM CLERICAL ASSISTANT Lara Patrick [facility] - HEMATOLOG Y ORDERABLES [address] [address], [facility] [[email or web address]] [phone] * (ABNORMAL) HAPTOGLOBIN (07/14/2020 10:44 AM CLERICAL ASSISTANT) Haptoglobin >500(H) 14 - 258 mg/dL 07/14/2020 12:13 PM CLERICAL ASSISTANT [facility] Blood BLOOD SPECIMEN / Unknown Venipuncture / Unknown 07/14/2020 10:44 AM CLERICAL ASSISTANT 07/14/2020 11:27 AM CLERICAL ASSISTANT Lara Patrick [facility] - CHEMISTRY ORDERABLES [facility] [address] [place] [address], [place] [phone] * FOLATE (07/14/2020 10:44 AM CLERICAL ASSISTANT) Folate 13.6 7.0 - 31.4 ng/mL 07/14/2020 12:05 PM CLERICAL ASSISTANT [facility] Blood BLOOD SPECIMEN / Unknown Venipuncture / Unknown 07/14/2020 10:44 AM CLERICAL ASSISTANT 07/14/2020 11:07 AM CLERICAL ASSISTANT Tiffanie Nguyen [facility] - CHEMISTRY ORDERABLES [address] [address], [place] [phone] documented in this encounter Visit Diagnoses Diagnosis Anemia due to other cause, not classified- Primary Diffuse large B-cell lymphoma, unspecified body region (HCC) 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) Bone marrow replaced by transplant Acute respiratory failure with hypoxia (HCC) Acute respiratory failure Pneumonia due to COVID-19 virus B-cell lymphoma, unspecified B-cell lymphoma type, unspecified body region (HCC) Anemia, unspecified type Fever, unspecified Anxiety Anxiety state, unspecified History of 2019 novel coronavirus disease (COVID-19) documented in this encounter Administered Medications Inactive Administered Medications - up to 3 most recent administrations Medication Order MAR Action Action Date Dose Rate Site acetaminophen (TYLENOL) tablet 650 mg 650 mg, Oral, ONCE, 1 dose, On Fri07/14/20 at 1200 $ Given 07/14/2020 11:58 AM CLERICAL ASSISTANT 650 mg cosyntropin (CORTROSYN) injection 0.25 mg 0.25 mg, Intravenous, ONCE, 1 dose, On Fri07/14/20 at 0745, IntraMUSCular injection reconstitute with 1 mL NS IntraVENous injection dilute in 2 to 5 mL of NS, inject over 2 min $ Given 07/14/2020 11:02 AM CLERICAL ASSISTANT 0.25 mg immune globulin (GAMUNEX-C) 10 % 30 g 30 g (rounded from 26.44 g = 0.4 g/kg ? 66.1 kg Treatment plan ideal weight), at 0-999 mL/hr, Intravenous, CONTINUOUS, Starting on Fri07/14/20 at 1100, Until Fri07/14/20 at 1659, If patient has history of IVIG infusion related reactions, administer premedications 30 minutes prior to starting IVIG infusion. Actual Weight for Rate Calculation: Wt Initiate IVIG at 0.5 mg/kg/min (39 mL/hr with VTBI: 9.63 mL) for 15 minutes. If tolerated, increase rate to 1 mg/kg/min (77 mL/hr with VTBI: 19.26 mL ) for 15 min. If tolerated, increase rate to 2 mg/kg/min (154 mL/hr with VTBI: 38.52 mL ) for 15 min. If tolerated, increase rate to 4 mg/kg/min (308 mL/hr with VTBI: 77.04 mL ) for 15 min. If tolerated, increase rate to 8 mg/kg/min (616 mL/hr with VTBI: 154.08 mL or until bag contents completely infused) See IVIG Monitoring order in Nursing Communications for monitoring instructions. Rate Change 07/14/2020 12:24 PM CLERICAL ASSISTANT 616 mL/hr Rate Change 07/14/2020 11:59 AM CLERICAL ASSISTANT 308 mL/hr Rate Change 07/14/2020 11:45 AM CLERICAL ASSISTANT 154 mL/hr oxyCODONE (immediate release) (ROXICODONE) tablet 5 mg 5 mg, Oral, ONCE, 1 dose, On Fri07/14/20 at 1115 $ Given 07/14/2020 11:02 AM CLERICAL ASSISTANT 5 mg poliovirus vaccine (inactivate) (IPOL) injection 0.5 mL 0.5 mL, Intramuscular, ONCE, 1 dose, On Fri07/14/20 at 1100, Not for IV administration. $ Given 07/14/2020 11:13 AM CLERICAL ASSISTANT 0.5 mL Left Deltoid prochlorperazine (COMPAZINE) injection 10 mg 10 mg, Intravenous, ONCE, 1 dose, On Fri07/14/20 at 1200, Max intravenous rate = 5 mg/min $ Given 07/14/2020 12:05 PM CLERICAL ASSISTANT 10 mg documented in this encounter Additional Health Concerns Infection Onset Date Last Indicated Resolved Time COVID-19 Confirmed 03/06/2020 07/14/2020 0 4:33 AM CLERICAL ASSISTANT documented as of this encounter Care Teams Director Reactor Projects Relationship Specialty Start Date End Date Ran Nuñez MD [address] [place] [address] PCP - General Family Medicine 03/22/19 12/22/20 Hillary Apple MD [address] [place] [address] Hematology and Oncology 03/17/19 Bill Ferrera MD [address] [place] [address] Hematology and Oncology 03/17/19 08/27/21 Tony Dumont MD [address] [place] [address] Hematology and Oncology 03/17/19 Maryjo Reinoso, WOOD CREW SUPERVISOR Outpatient Coordinator 03/17/19 Madyson Clay, PharmD 03/17/19 Dana Lala, [facility]T PUNCHER [address] [place] [address] 2nd [place] [address] Oncology 03/17/19 Tiffanie Nguyen, [facility] [address] [place] [address] 2nd [place] [address] Family Medicine 03/17/19 Stephanie Mahoney, RN Registered Nurse 03/17/19 10/29/21 Alycia Galvan, ROSEMARY 03/17/19 10/29/21 Cesar Tavares MD [address] [place] [address] Referring Physician Medical Oncology 03/23/19 Karie Jones, RN Registered Nurse 06/08/19 10/29/21 Joy Bob 09/22/19 Addison Shea, PharmD Pharmacist 09/22/19 10/29/21 documented as of this encounter
--- OUTSIDE RECORDS SUMMARY | 2024-08-18 00:25 | XMS_ITS | Encounter Summary ---
Author Organization [facility] Address [address] [place] [address] Care Team Providers Care Permit Coordinator Name Role Phone Hillary Apple MD Unavailable [phone] Bill Ferrera MD Unavailable [phone] Tony Dumont MD Unavailable [phone] Maryjo Reinoso [facility] Unavailable Unavailable Madyson Clay PharmD Unavailable Unavaila Dana Galicia BOSTON CUTTER-PRODUCTION MACHINE TENDER Unavailable [phone] Tiffanie Nguyen APRN-ODD JOB WORKER Unavailable [phone] Stephanie Mahoney RN Unavailable Unavailable Alycia Galvan RN Unavailable UnavailRan Mejía MD Primary Care Provider Cesar Tavares MD Unavailable [phone] aKrie Jones RN Unavailable Unavailable Joy Bob Unavailable Fanta Addison Weinstein PharmD Unavailable Unavailab le Encounter Details Date Type Department Care Team (Late st Contact Info) Description 08/09/2020 Orders Only [facility] [address] [place] [address] Tiffanie Nguyen APRN-ODD JOB WORKER [address] [place] [address] Social History Tobacco Use Types Packs/Day Years [...] st Contact Info) Description 08/26/2024 11:00 AM RN GERIATRIC Office Visit [facility] - Pulmonology [address] [place] [address], [place] [address] Andrew Francis MD [address] [place] [address] 2L DIV OF PULMONARY/[place] [address] documented as of this encounter Visit Diagnoses Not on filedocumented in this encounter Care Teams Permit Coordinator Relationship Specialty Start Date End Date Ran Nuñez MD [address] [place] [address] PCP - General Family Medicine 03/22/19 12/22/20 Hillary Apple MD [address] [place] [address] Hematology and Oncology 03/17/19 Bill Ferrera MD [address] [place] [address] Hematology and Oncology 03/17/19 08/27/21 Tony Dumont MD [address] [place] [address] Hematology and Oncology 03/17/19 Maryjo Reinoso, REYNA Payment Collector 03/17/19 Madyson Clay, PharmD 03/17/19 Dana [place], BOSTON CUTTER-PRODUCTION MACHINE TENDER [address] [facility] 2nd [place] [address] Oncology 03/17/19 Tiffanie Nguyen, BOSTON CUTTER-ODD JOB WORKER [address] [facility] 2nd [place] [address] Family Medicine 03/17/19 Stephanie Mahoney, RN Registered Nurse 03/17/19 10/29/21 Alycia Galvan, ROSEMARY 03/17/19 10/29/21 Cesar Tavares MD [address] [place] [address] [place] [address] Referring Physician Medical Oncology 03/23/19 Karie Jones, RN Registered Nurse 06/08/19 10/29/21 Joy Bob 09/22/19 Addison Shea, PharmD Pharmacist 09/22/19 10/29/21 documented as of this encounter
--- OUTSIDE RECORDS SUMMARY | 2024-08-18 00:25 | XMS_ITS | Encounter Summary ---
Author Organization [facility] Address [address] [facility] [place] [address] Care Team Providers Care Manager Billing Name Role Phone Hillary Apple MD Unavailable [phone] Bill Ferrera MD Unavailable [phone] Tony Dumont MD Unavailable [phone] Maryjo ReinosoW Unavailable Unavailable Madyson Clay PharmD Unavailable Unavaila Dana Galicia CONTROL PANEL BUILDER-SOCIOLOGY ADJUNCT INSTRUCTOR Unavailable [phone] Tiffanie Nguyen APRN-SKEIN BANDER Unavailable [phone] Stephanie Mahoney RN Unavailable Unavailable Alycia Galvan RN Unavailable UnavailRan Mejía MD Primary Care Provider Cesar Tavares MD Unavailable [phone] Karie Jones RN Unavailable Unavailable Joy Bob Unavailable Fanta Addison Weinstein PharmD Unavailable Unavail le Reason for Visit * Reason Onset Date Comments MEDICATION REFILL 06/07/2020 Encounter Details Date Type Department Care Team (Late st Contact Info) Description 06/07/2020 Refill [facility] [address] [place] [address] Tiffanie Nguyen APRN-SKEIN BANDER [address] [place] [address] MEDICATION REFILL Social History Tobacco Use Types [...] st Contact Info) Description 08/26/2024 11:00 AM DOUGHNUT ICER Office Visit [facility] - Pulmonology [address] [place] [address], [place] [address] Andrew Francis MD [address] [place] [address] OF PULMONARY/[place] [address] documented as of this encounter Visit Diagnoses Diagnosis Stem cells transplant status (HCC)- Primary 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 documented in this encounter Additional Health Concerns Infection Onset Date Last Indicated Resolved Time COVID-19 Confirmed 03/06/2020 07/14/2020 0 4:33 AM DOUGHNUT ICER documented as of this encounter Care Teams Manager Billing Relationship Specialty Start Date End Date Ran Nuñez MD [address] [place] [address] PCP - General Family Medicine 03/22/19 12/22/20 Hillary Apple MD [address] [place] [address] Hematology and Oncology 03/17/19 Bill Ferrera MD [address] [place] [address] Hematology and Oncology 03/17/19 08/27/21 Tony Dumont MD [address] [place] [address] Hematology and Oncology 03/17/19 Maryjo Reinoso, AQUATIC LABORER Garment Cutter 03/17/19 Madyson Clay, PharmD 03/17/19 Dana [place], CONTROL PANEL BUILDER-SOCIOLOGY ADJUNCT INSTRUCTOR [address] [place] [address] 2nd [place] [address] Oncology 03/17/19 Tiffanie Nguyen, CONTROL PANEL BUILDER-SKEIN BANDER [address] [place] [address] 2nd [place] [address] Family Medicine 03/17/19 Stephanie Mahoney, RN Registered Nurse 03/17/19 10/29/21 Alycia Galvan, ROSEMARY 03/17/19 10/29/21 Cesar Tavares MD [address] [place] [address] [place] [address] Referring Physician Medical Oncology 03/23/19 Karie Jones, RN Registered Nurse 06/08/19 10/29/21 Joy Bob 09/22/19 Addison Shea, PharmD Pharmacist 09/22/19 10/29/21 documented as of this encounter
--- OUTSIDE RECORDS SUMMARY | 2024-08-18 00:25 | XMS_ITS | Encounter Summary ---
Author Organization [facility] Address [address] [place] [address] Care Team Providers Care Seam Stayer Name Role Phone Hillary Apple MD Unavailable [phone] Bill Ferrera MD Unavailable [phone] Tony Dumont MD Unavailable [phone] Maryjo Reinoso [facility] Unavailable Unavailable Madyson Clay PharmD Unavailable Unavaila Dana Galicia STOCK PARTS INSPECTOR-POWER SHOVEL OPERATOR Unavailable [phone] Tiffanie Nguyen STOCK PARTS INSPECTOR-ROOF CEMENT AND PAINT MAKER Unavailable [phone] Stephanie Mahoney RN Unavailable Unavailable Alycia Galvan RN Unavailable UnavailRan Mejía MD Primary Care Provider Cesar Tavares MD Unavailable [phone] Karie Jones RN Unavailable Unavailable Joy Bob Unavailable Fanta Addison Weinstein PharmD Unavailable Unavailab le Encounter Details Date Type Department Care Team (Late st Contact Info) Description 07/04/2020 Orders Only [facility] [address] [place] [address] Monica Latif APRN-ROOF CEMENT AND PAINT MAKER [address] [place] [address] Social History Tobacco Use Types Packs/Day Years [...] st Contact Info) Description 08/26/2024 11:00 AM LANDFILL GAS COLLECTION OPERATOR Office Visit [facility] - Pulmonology [address] [place] [address], [place] [address] Andrew Francis MD [address] [place] [address] 2L DIV OF PULMONARY/[place] [address] documented as of this encounter Visit Diagnoses Not on filedocumented in this encounter Additional Health Concerns Infection Onset Date Last Indicated Resolved Time COVID-19 Confirmed 03/06/2020 07/14/2020 0 4:33 AM LANDFILL GAS COLLECTION OPERATOR documented as of this encounter Care Teams Seam Stayer Relationship Specialty Start Date End Date Ran Nuñez MD [address] [place] [address] PCP - General Family Medicine 03/22/19 12/22/20 Hillary Apple MD [facility] [place] [address] Hematology and Oncology 03/17/19 Bill Ferrera MD [facility] [place] [address] Hematology and Oncology 03/17/19 08/27/21 Tony Dumont MD [facility] [place] [address] Hematology and Oncology 03/17/19 Maryjo Reinoso, BORING MACHINE SET UP OPERATOR JIG Rotor Casting Machine Operator 03/17/19 Madyson Clay, PharmD 03/17/19 Dana [place], STOCK PARTS INSPECTOR-POWER SHOVEL OPERATOR [facility] [place] [address] Oncology 03/17/19 Tiffanie Nguyen, STOCK PARTS INSPECTOR-ROOF CEMENT AND PAINT MAKER [address] [place] [address] 2nd [place] [address] Family Medicine 03/17/19 Stephanie Mahoney, RN Registered Nurse 03/17/19 10/29/21 Alycia Galvan, ROSEMARY 03/17/19 10/29/21 Cesar Tavares MD [address] [place] [address] [place] [address] Referring Physician Medical Oncology 03/23/19 Karie Jones, RN Registered Nurse 06/08/19 10/29/21 Joy Bob 09/22/19 Addison Shea, PharmD Pharmacist 09/22/19 10/29/21 documented as of this encounter
--- OUTSIDE RECORDS SUMMARY | 2024-08-18 00:25 | XMS_ITS | Encounter Summary ---
Author Organization [facility] Address [address] [facility] [place] [address] Care Team Providers Care Industrial Locomotive Operator Name Role Phone Hillary Apple MD Unavailable [phone] Bill Ferrera MD Unavailable [phone] Tony Dumont MD Unavailable Maryjo Reinoso [facility] Unavailable Unavailable Madyson Clay PharmD Unavailable Unavaila Dana Galicia BEAD INSPECTOR-SALES CONSULTANT RESIDENTIAL MANAGER Unavailable [phone] Tiffanie Nguyen BEAD INSPECTOR-ROOM SERVICE SUPERVISOR Unavailable [phone] Stephanie Mahoney RN Unavailable Unavailable Alycia Galvan RN Unavailable UnavailRan Mejía MD Primary Care Provider Cesar Tavares MD Unavailable [phone] Karie Jones RN Unavailable Unavailable Joy Bob Unavailable Fanta Addison Weinstein PharmD Unavailable Unavailab le Reason for Visit * Reason Comments Refill Request Encounter Details Date Type Department Care Team (Late st Contact Info) Description 08/06/2020 Refill [facility] [address] [place] [address] Tony Dumont MD [address] [place] [address] [address] [place] [address] Refill Request Social History Tobacco Use Types [...] st Contact Info) Description 08/26/2024 11:00 AM MANAGEMENT CONSULTANT Office Visit [facility] - Pulmonology [address] [place] [address], [place] [address] Andrew Francis MD [address] [place] [address] 2L DIV OF PULMONARY/[place] [address] documented as of this encounter Visit Diagnoses Not on filedocumented in this encounter Care Teams Industrial Locomotive Operator Relationship Specialty Start Date End Date Ran Nuñez MD [address] [place] [address] PCP - General Family Medicine 03/22/19 12/22/20 Hillary Apple MD [address] [place] [address] Hematology and Oncology 03/17/19 Bill Ferrera MD [address] [place] [address] Hematology and Oncology 03/17/19 08/27/21 Tony Dumont MD [address] [place] [address] Hematology and Oncology 03/17/19 Maryjo Reinoso, BEAUTY SCHOOL INSTRUCTOR Channel Process Plant Operator 03/17/19 Madyson Clay, PharmD 03/17/19 Dana Lala, BEAD INSPECTOR-SALES CONSULTANT RESIDENTIAL MANAGER [address] [facility] 2nd [place] [address] Oncology 03/17/19 Tiffanie Nguyen, BEAD INSPECTOR-ROOM SERVICE SUPERVISOR [address] [facility] 2nd [place] [address] Family Medicine 03/17/19 Stephanie Mahoney, RN Registered Nurse 03/17/19 10/29/21 Alycia Galvan, ROSEMARY 03/17/19 10/29/21 Cesar Tavares MD [address] [place] [address] [place] [address] Referring Physician Medical Oncology 03/23/19 Karie Jones, RN Registered Nurse 06/08/19 10/29/21 Joy Bob 09/22/19 Addison Shea, PharmD Pharmacist 09/22/19 10/29/21 documented as of this encounter
--- OUTSIDE RECORDS SUMMARY | 2024-08-18 00:25 | XMS_ITS | Encounter Summary ---
Author Organization [facility] Address [address] [place] [address] Care Team Providers Care Php Website Developer Name Role Phone Hillary Apple MD Unavailable [phone] Bill Ferrera MD Unavailable [phone] Tony Dumont MD Unavailable [phone] Maryjo Reinoso [facility] Unavailable Unavailable Madyson Clay PharmD Unavailable Unavaila Dana Galicia [employer] ATTENDANT Unavailable [phone] Tiffanie Nguyen APRN-BEHAVIORAL HEALTH TECH Unavailable [phone] Stephanie Mahoney RN Unavailable Unavailable Alycia Galvan RN Unavailable UnavailRan Mejía MD Primary Care Provider Cesar Tavares MD Unavailable [phone] Karie Jones RN Unavailable Unavailable Joy Bob Unavailable Fanta Addison Weinstein PharmD Unavailable Unavailab le Encounter Details Date Type Department Care Team (Latest Contact Info) Description 06/16/2020 11:00 AM HANDLE ATTACHER - 06/16/2020 11:59 PM HANDLE ATTACHER Hospital Encounter [facility] [address] [place] [address] Bill Ferrera MD [address] [place] [address] Tiffanie Nguyen APRN-BEHAVIORAL HEALTH TECH [address] [place] [address] Discharge Disposition: Home or Self Care Social [...] Sign Reading Time Taken Comments Blood Pressure 101/62 06/16/2020 1:55 PM HANDLE ATTACHER Pulse 89 06/16/2020 1:55 PM HANDLE ATTACHER Temperature 36.6 ??C (97.8 ??F) 06/16/2020 1:55 PM CS T Respiratory Rate 18 06/16/2020 1:55 PM HANDLE ATTACHER Oxygen Saturation 99% 06/16/2020 1:55 PM HANDLE ATTACHER Inhaled Oxygen Concentration - - Weight 128.4 kg (283 lb 0.3 oz) 020 11:19 AM HANDLE ATTACHER Height - - Body Mass Index 44.32 02/28/2020 7:12 AM CDT documented in this [...] 400 MG tabletIndications:St em cells transplant status ([facility]) Take 2 tablets by mouth 2 times daily 360 tablet 3 06/07/2020 11/28/2020 apixaban (ELIQUIS) 5 MG tablet Take 1 tablet by mouth 2 times daily 180 tablet 3 11/10/2019 08/31/2020 diclofenac sodium EC (VOLTAREN) 75 MG tablet TK 1 T PO BID PRF PAIN 06/05/202006/30 DULERA 100-5 MCG/ACT inhaler 2 PUFFS PO Q 12 H 06/05/2020 07/03/2020 escitalopram (LEXAPRO) 10 MG tablet Take 1 tablet by mouth once daily 30 tablet 06/28/2019 07/03/2020 fluticasone propionate (FLONASE) 50 MCG/ACT nasal spray [...] (HCC),S/P splenectomy,Status post autologous bone marrow transplant ([facility]) TAKE 1 TABLET BY MOUTH TWICE DAILY 60 tablet 5 03/13/2021 04/10/2021 penicillin v potassium (VEETIDS) 250 MG tablet Take 1 tablet by mouth 2 times daily 60 tablet 5 08/11/2019 03/13/2021 predniSONE (DELTASONE) 20 MG tablet Take 1 tablet by mouth daily with breakfast 04/06/2020 07/14/2020 prochlorperazine (COMPAZINE) 10 MG tablet Take 10 mg by mouth every 6 hours as needed 04/27/2019 12/20/2021 rOPINIRole (REQUIP) 0.25 MG tabletIndications:Re stless Leg Syndrome Take 1 tablet by mouth at bedtime Reasons: Restless Leg Syndrome 90 tablet 3 10/29/2019 01/02/2021 saline nasal spray (OCEAN; BABY AYR) 0.65 % nasal spray [place] 2 sprays into each nostril every 2 [...] Take 2 tablets by mouth once daily 04/06/2020 07/04/2020 documented as of this encounter Progress Notes * Tia Varghese - 06/16/2020 4:12 PM CST Patient presented today for re-vaccination following autologous/allogeneic hematopoetic stem cell transplant (Day 0 _/__). Reviewed titer history and planned immunizations with interdisciplinary team. No significant interactions noted among immunizations to be given today. 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 Patient afebrile today and without signs/symptoms of infection. Education provided on vaccines to be administered today, including necessity of re-vaccination after transplant, to report signs and symptoms of adverse reactions, and possible side effects of vaccinations including mild soreness at injection sites. Patient verbalized understanding and agreement. Hib, Prevnar 13, Menveo vaccinations given and explained. Patient tolerated injections well. Scheduled next immunization appointment in BMT clinic in one month, will receive additional 6 month vaccines then. 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 INTERVAL HISTORY: Aurelio presents to clinic ambulatory, accompanied by sister Remains on 1L O2 at rest, 10L with activity. Has been more active and motivated to walk around his house to regain strength back Has been having been numbness and sensitivities to his areolas and is having dry skin Takes a lot of effort to shower and get dressed. Has noted significant improvement even at rest, able to sleep on either side without increased O2 requirement SOB and BARNES continues to improve. Time to recover also improving. After a long period of activity can take 10-15 minutes to recover. HR elevates with activity, up to 140s then recovers. The longer the HR is elevated he has been getting migraines more. Migraines resolve with oxycodone x 1. Used to happen everyday but now happening more infrequently. ROS: A comprehensive review of systems was [...] tablet by mouth 2 times daily ??? diclofenac sodium EC (VOLTAREN) 75 MG tablet TK 1 T PO BID PRF PAIN ??? DULERA 100-5 MCG/ACT inhaler 2 PUFFS PO Q 12 H ??? escitalopram (LEXAPRO) 10 MG tablet Take 1 [...] mouth 2 times daily ??? predniSONE (DELTASONE) 20 MG tablet Take 1 tablet by mouth daily with breakfast ??? prochlorperazine (COMPAZINE) 10 MG tablet Take 10 mg by mouth every 6 hours as needed ??? rOPINIRole (REQUIP) 0.25 MG tablet Take 1 tablet by mouth at bedtime Reasons: Restless Leg Syndrome ??? saline nasal spray (OCEAN; BABY AYR) 0.65 % nasal spray [place] 2 sprays into each nostril every 2 [...] ??? heparin lock flush injection 500 Units VITALS: Vitals: 06/16/20 1119 06/16/20 1230 06/16/20 1317 06/16/20 1355 BP: 164/95 142/96 119/75 101/62 Pulse: 97 92 100 89 Resp: Temp: 98.4 ??F 98.4 ??F 99.1 ??F 97.8 ??F SpO2: 92% 98% 97% 99% Weight: 128.4 kg (283 lb 0.3 oz) Wt Readings from Last 3 Encounters: 06/16/20 128.4 kg (283 lb 0.3 oz) 03/30/20 113.7 kg (250 lb 10.6 oz) 02/26/20 120.2 kg (265 lb) PHYSICAL EXAM: Physical Examination: General appearance - alert, well appearing, and in no distress Mental status - alert, oriented to person, place, and time Chest - tachypnic when talking, 2L NC while in clinic, strong dry cough Heart - normal rate, regular rhythm, normal S1, S2, no murmurs, rubs, clicks or gallops Abdomen - soft, nontender, nondistended, no masses or organomegaly Extremities - peripheral pulses normal, no pedal edema, no clubbing or cyanosis Skin - skin dry, no rashes LABS: Recent Labs Component Name 06/16/20 1125 04/05/20 0004 04/03/20 0533 03/18/20 2357 03/18/20 2357 WBC 14.6* 10.4 11.4* - 16.8* RBC 4.56 3.27* 3.54* - 3.42* HGB 11.3* 9.6* 10.5* - 10.0* HCT 35.5* 30.1* 32.5* - 30.1* MCV 77.9* 92.0 91.8 - 88.0 MCH 24.8* 29.4 29.7 - 29.2 MCHC 31.8* 31.9* 32.3 - 33.2 PLTCOUNT 549* 275 276 - 188 RDWSD 56.5* 79.8* 79.7* - 62.7* RDW 20.5* 24.3* 24.4* - 21.2* MPV 9.5 12.9* 12.3 - - NRBCABS 0.02* 0.50* 0.52* - 1.83* NRBCAUTOPCT 0.1* 4.8* 4.5* - 10.9* NEUTPCT 66.4 70.6* 72.3* - - LYMPHSPCT 21.1 13.7* 13.7* - - MONOPCT 7.9 9.1 8.9 - - EOSPCT 3.3 2.8 2.0 - - BASOPCT 0.8 0.5 0.5 - - IMMGRANSPCT 0.5 3.3* 2.6* - - NEUTABS 9.7* 7.4* 8.3* - 15.96* LYMPHS 3.1* 1.4 1.6 - 0.17* MONO 1.15* 0.95* 1.02* - 0.50 EOS 0.48* 0.29 0.23 - - BASO 0.12* 0.05 0.06 - - TOTCELLCNT - - - - 100 - = values in this interval not displayed. Recent Labs Component Name 06/16/20112404/05/20 0003 04/03/20 0533 BUN 13 18 18 CREATININE 0.9 0.8 0.8 NA 141 139 141 POTASSIUM 4.3 3.8 4.0 CL 106 102 100 CO2 23 31* 32* CALCIUM 10.0 8.8 9.4 PROT 7.1 6.1 5.7* ALB 3.4 2.4* 2.6* TBILI 0.1* 0.2 0.3 ALKPHOS 159* 104 105 ALT 38 44 51 AST 24 18 16 ANIONGAP 16 10 13 BCR 14 23 23 OSMOLALITY 292 291 293 AGRATIO 0.9* 0.6* 0.8* EGFR >60 >60 >60 Recent Labs Component Name 06/16/20112404/05/20 0003 04/03/20 0533 MAGNESIUM 1.9 1.9 1.9 Recent Labs Component Name 06/16/20112404/05/20 0003 04/03/20 0533 PHOS 3.1 3.5 4.6 IgG (06/16/20): 324 ASSESSMENT/PLAN: MARCELLO LUIS is a 50 year old male, who is Day +240 (Day 0 is 10/20/19) of an autologous [...] that time -Covid from bronch 03/07 and DIRECTOR OF PRODUCT DESIGN swab 03/07 both positive -received remdesivir 03/08 - 03/12 & convalescent plasma 03/10 -completed steroid taper, remain on 5mg daily until able to do stim test at next visit -continue Dulera inhaler BID and albuterol PRN -O2 NC to keep sats >90 -will plan IVIG monthly x 6 months, given today (06/16/20) -inflammatory markers improved -Covid IgG Migraine Headaches -occur when O2 drops and HR increases, only a few times per week -refer to neurology for workup non-urgently -oxycodone PRN, has trialed many other agents with minimal relief Anxiety/Depression - Lexapro 10 mg daily Restless Leg Syndrome - Requip 0.25 mg QHS Right IJ venous clot 09/27/19 - STOP Eliquis 5 mg BID Immunization--start today 06/16/20 -received flu vaccine May 2020 Immunization History Administered Date(s) Administered ??? FLU VACCINE IIV INC ANTIG PF IM 05/24/2019 ??? HIB-PRP-T 4 DOSE 08/11/2019, 06/16/2020 ??? MENINGOCOCCAL MCV4O 08/11/2019, 06/16/2020 ??? PNEUMOCOCCAL PPSV23 08/11/2019 ??? Pneumococcal Pcv13 Conj 06/16/2020 Discharge Planning: Patients preferred contact information: cell Caregiver: sister, girlfriend Preferred D/C Pharmacy: [facility] Intended lodging: home Referring provider: Cesar Tavares Disposition: RTC 07/14/20 visit with basic, IgG, IVIG and vaccines [facility] LE ATTACHER Associated attestation - Hlilary Apple MD - 06/16/2020 4:59 PM HANDLE ATTACHER I independently interviewed and examined Marcello Luis with the BMT advanced practice provider. I reviewed my findings and assessment with the advanced practice provider and the patient. I reviewed the below note. Please see note for full detail. Day 240 Discharged from LTAC Slowly improving but activity tolerance is still markedly limited CoViD IgG is still negative Counts are OK, follow leukocytosis IVIG today and monthly Conjugated vaccines today Our goal will be to provide immune support in a way that minimizes additional risk for infectious pulmonary complications as Aurelio's pulmonary reserve is very low. Re: headaches, seem to be precipitated by low O2 Will refer to neuro Note MCV is low, check iron studies next visit Plt still high OK to stop anti-coagulation It was for catheter associated DVT Catheter has been out for months He is far out from CoViD infection and hospitalization Stim test next visit Hillary Apple MD MSc soap slabber Interim Director, Division of Hematology/Oncology [facility] documented in this encounter Plan of Treatment Upcoming Encounters Date Type Department Care Team (Late st Contact Info) Description 08/26/2024 11:00 AM HANDLE ATTACHER Office Visit [facility] - Pulmonology [address] [place] [address], [place] [id number] Andrew Francis MD [address] [place] [address] 2L DIV OF PULMONARY/[place] [address] documented as of this encounter Procedures Procedure Name Priority Date/Time Associated Diagnosis Comments SARS-COV-2 (COVID-19) IN HOUSE Routine 06/16/2020 11:26 AM HANDLE ATTACHER Pneumonia due to COVID-19 virus SARS-COV-2 (COVID-19) ANTIBODY IGG Routine 06/16/2020 11:25 AM HANDLE ATTACHER Pneumonia due to COVID-19 virus C-REACTIVE PROTEIN Routine 06/16/2020 11 :25 AM HANDLE ATTACHER Pneumonia due to COVID-19 virus D-DIMER Routine 06/16/2020 11:25 AM HANDLE ATTACHER Pneumonia due to COVID-19 virus ERYTHROCYTE SEDIMENTATION RATE Routine 06/16/2020 11:25 AM HANDLE ATTACHER Pneumonia due to COVID-19 virus RBC MORPHOLOGY Routine 06/16/2020 11:25 AM HANDLE ATTACHER Diffuse large B-cell lymphoma, unspecified body region (HCC) CBC W AUTO DIFFERENTIAL STAT 06/16/2020 11:25 AM HANDLE ATTACHER Diffuse large B-cell lymphoma, unspecified body region (HCC) COMPREHENSIVE METABOLIC PANEL STAT 06/16/2020 11:25 AM HANDLE ATTACHER Diffuse large B-cell lymphoma, unspecified body region (HCC) PHOSPHORUS BLOOD STAT 06/16/2020 11:2 5 AM HANDLE ATTACHER Diffuse large B-cell lymphoma, unspecified body region (HCC) MAGNESIUM BLOOD STAT 06/16/2020 11:25 AM HANDLE ATTACHER Diffuse large B-cell lymphoma, unspecified body region (HCC) LDH BLOOD Routine 06/16/2020 11:25 AM HANDLE ATTACHER Pneumonia due to COVID-19 virus IGG BLOOD Routine 06/16/2020 11:25 AM HANDLE ATTACHER Pneumonia due to COVID-19 virus FERRITIN Routine 06/16/2020 11:25 AM HANDLE ATTACHER Pneumonia due to COVID-19 virus documented in this encounter Results * (ABNORMAL) SARS-COV-2 (COVID-19) IN HOUSE (06/16/2020 11:26 AM HANDLE ATTACHER) COVID-19 PCR Detected( AA) Not detected 06/17/2020 3:04 PM HANDLE ATTACHER [facility] MICROBIOLOG[facility] Microbiology SPECIMEN FROM NASOPHARYNGEAL STRUCTURE / Unknown Collection / Unknown 06/16/2020 11:26 AM HANDLE ATTACHER 06/16/2020 11:48 AM HANDLE ATTACHER Narrative [facility] - 06/17/2020 3:04 PM HANDLE ATTACHER This nucleic acid amplification assay performance was validated by [facility]. This test has been [...] assay are available upon request. Tiffanie Nguyen [facility]OL OGY ORDERABLES [facility] [address] [place] [address], [facility] [phone] * (ABNORMAL) RBC MORPHOLOGY (06/16/2020 11:25 AM HANDLE ATTACHER) Platelet Estimate Increased (A) Adequate 06/16/2020 12:38 PM HANDLE ATTACHER [facility] Polychromasia 1+(A) None 06/16/2020 12:38 PM HANDLE ATTACHER [facility] Blank-Whiteface Bodies 1+(A) None 06/16/2020 12:38 PM HANDLE ATTACHER [facility] Target Cells 1+(A) None 06/16/2020 12:38 PM HANDLE ATTACHER [facility] Spherocytes Rare(A) None 06/16/2020 12:38 PM HANDLE ATTACHER [facility] Blood BLOOD SPECIMEN / Unknown Venipuncture / Unknown 06/16/2020 11:25 AM HANDLE ATTACHER 06/16/2020 11:42 AM HANDLE ATTACHER Tiffanie Nguyen FREIGHT SALES [facility] - HEMATOLOG Y ORDERABLES [facility] [address] [place] [address], [facility] [phone] * PHOSPHORUS BLOOD (06/16/2020 11:25 AM HANDLE ATTACHER) Phosphorus 3.1 2.3 - 4.7 mg/dL 06/16/2020 12:11 PM HANDLE ATTACHER [facility] Blood BLOOD SPECIMEN / Unknown Venipuncture / Unknown 06/16/2020 11:25 AM HANDLE ATTACHER 06/16/2020 11:42 AM HANDLE ATTACHER Tiffanie Nguyen [facility] - CHEMISTRY ORDERABLES [address] [address], [facility] [phone] * MAGNESIUM BLOOD (06/16/2020 11:25 AM HANDLE ATTACHER) Pathologist [facility] Magnesium 1.9 1.6 - 2.6 mg/dL 06/16/2020 12:11 PM [facility] Blood BLOOD SPECIMEN / Unknown Venipuncture / Unknown 06/16/2020 11:25 AM HANDLE ATTACHER 06/16/2020 11:42 AM HANDLE ATTACHER Tiffanie Nguyen [employer]RE[employer] SALES BROKERBrightc[facility] - CHEMISTRY ORDERABLES Performing Organization Address City/[facility]/ZIP Co de Phone Number [address] [address], [facility] [phone] * (ABNORMAL) CBC W AUTO DIFFERENTIAL (06/16/2020 11:25 AM HANDLE ATTACHER) Pathologist [facility] WBC 14.6(H) 3.5 - 10.5 10? 3 /uL 06/16/2020 11:56 AM [facility] RBC 4.56 4.30 - 5.70 10? 6 /uL 06/16/2020 11:56 AM [facility] Hemoglobin 11.3(L) 13.5 - 17.5 g/dL 06/16/2020 11:56 AM [facility] Hematocrit 35.5(L) 39.0 - 50.0 % 06/16/2020 11:56 AM [facility] MCV 77.9(L) 81.0 - 97.0 fL 06/16/2020 11:56 AM [facility] Comment: Confirmed by repeat analysis. > 30 days. MCH 24.8(L) 28.0 - 34.0 pg 06/16/2020 11:56 AM [facility] MCHC 31.8(L) 32.0 - 36.0 g/dL 06/16/2020 11:56 AM [facility] Platelet Count 549(H) 150 - 400 10? 3 /uL 06/16/2020 11:56 AM [facility] RDW-SD 56.5(H) 36.0 - 50.0 fL 06/16/2020 11:56 AM [facility] RDW-CV 20.5(H) 11.2 - 14.8 % 06/16/2020 11:56 AM [facility] MPV 9.5 9.3 - 12.8 fL 06/16/2020 11:56 AM [facility] nRBC Absolute 0.02(H) 0 10? 3 /uL 06/16/2020 11:56 AM [facility] nRBC Auto 0.1(H) 0 /100 WBC 06/16/2020 11:56 AM [facility] Neutrophils % 66.4 35.0 - 70.0 % 06/16/2020 11:56 AM [facility] Lymphocytes % 21.1 19.7 - 55.1 % 06/16/2020 11:56 AM [facility] Monocytes % 7.9 3.0 - 15.0 % 06/16/2020 11:56 AM [facility] Eosinophils % 3.3 0.0 - 6.0 % 06/16/2020 11:56 AM [facility] Basophil % 0.8 0.0 - 1.5 % 06/16/2020 11:56 AM [facility] Neutrophils Absolute 9.7(H) 1.6 - 7.0 10? 3 /uL 06/16/2020 11:56 AM [facility] Lymphocyte Absolute 3.1(H) 0.8 - 2.9 10? 3 /uL 06/16/2020 11:56 AM [facility] Monocytes Absolute 1.15(H) 0.14 - 0.66 10? 3 /uL 06/16/2020 11:56 AM [facility] Eosinophils Absolute 0.48(H) 0.00 - 0.45 10? 3 /uL 06/16/2020 11:56 AM [facility] Basophils Absolute 0.12(H) 0.00 - 0.06 10? 3 /uL 06/16/2020 11:56 AM [facility] Immature Granulocytes % 0.5 0.0 - 1.0 % 06/16/2020 11:56 AM [facility] Blood BLOOD SPECIMEN / Unknown Venipuncture / Unknown 06/16/2020 11:25 AM HANDLE ATTACHER 06/16/2020 11:42 AM HANDLE ATTACHER Tiffanie Nguyen [employer]-BEHAVIORAL HEALTH TECH LAB - HEMATOLOG Y ORDERABLES [facility] [address] [place] [address], [facility] [phone] * (ABNORMAL) COMPREHENSIVE METABOLIC PANEL (06/16/2020 11:25 AM HANDLE ATTACHER) BUN 13 7 - 26 mg/dL 06/16/2020 12:11 PM [facility] Creatinine 0.9 0.6 - 1.2 mg/dL 06/16/2020 12:11 PM [facility] Sodium 141 136 - 145 mmol/L 06/16/2020 12:11 PM [facility] Potassium 4.3 3.5 - 4.5 mmol/L 06/16/2020 12:11 PM [facility] Chloride 106 98 - 107 mmol/L 06/16/2020 12:11 PM [facility] CO2 23 22 - 29 mmol/L 06/16/2020 12:11 PM [facility] Glucose 94 70 - 115 mg/dL 06/16/2020 12:11 PM [facility] Calcium 10.0 8.4 - 10.2 mg/dL 06/16/2020 12:11 PM [facility] Protein Total 7.1 6.0 - 8.3 g/dL 06/16/2020 12:11 PM [facility] Albumin 3.4 3.4 - 5.0 g/dL 06/16/2020 12:11 PM [facility] Bilirubin Total 0.1(L) 0.2 - 1.2 mg/dL 06/16/2020 12:11 PM [facility] Alkaline Phosphatase 159(H) 40 - 150 Units/L 06/16/2020 12:11 PM [facility] ALT 38 0 - 55 Units/L 06/16/2020 12:11 PM [facility] AST 24 5 - 34 Units/L 06/16/2020 12:11 PM [facility] Anion Gap 16 8 - 18 06/16/2020 12:11 PM [facility] BUN/Creatinine Ratio 14 7 - 23 06/16/2020 12:11 PM [facility] Osmolality Calculated 292 270 - 300 mOsm/kg 06/16/2020 12:11 PM [facility] Albumin/Globulin Ratio 0.9(L) 1.1 - 2.3 06/16/2020 12:11 PM [facility] eGFR >60 >60 mL/min/1.7 3 m2 06/16/2020 12:11 PM [facility] Blood BLOOD SPECIMEN / Unknown Venipuncture / Unknown 06/16/2020 11:25 AM HANDLE ATTACHER 06/16/2020 11:42 AM HANDLE ATTACHER Tiffanie Nguyen [employer]-BEHAVIORAL HEALTH TECH LAB - CHEMISTRY ORDERABLES [facility] [address] [place] [address], [facility] [phone] * (ABNORMAL) D-DIMER (06/16/2020 11:25 AM HANDLE ATTACHER) D-Dimer Quantitative 0.52(H) <=0.50 mcg/mL FEU 06/16/2020 12:09 PM [facility] Comment: In the absence of clinical [...] Unknown Venipuncture / Unknown 06/16/2020 11:25 AM HANDLE ATTACHER 06/16/2020 11:48 AM HANDLE ATTACHER Tiffanie Alvesharman [facility] - COAGULATI ON ORDERABLES Performing Organization Address City/[facility]/ZIP Co de Phone Number [address] [address], [place] [phone] * (ABNORMAL) C-REACTIVE PROTEIN (06/16/2020 11:25 AM HANDLE ATTACHER) C-Reactive Protein 2.8(H) <=0.5 mg/dL 06/16/2020 12:29 PM HANDLE ATTACHER [facility] Blood BLOOD SPECIMEN / Unknown Venipuncture / Unknown 06/16/2020 11:25 AM HANDLE ATTACHER 06/16/2020 11:58 AM HANDLE ATTACHER Tiffanie Seymour Patrick [facility] - CHEMISTRY ORDERABLES Performing Organization Address [facility]/ZIP Co de Phone Number [address] [address], [place] [phone] * (ABNORMAL) ERYTHROCYTE SEDIMENTATION RATE (06/16/2020 11:25 AM HANDLE ATTACHER) Erythrocyte Sedimentation Rate Westergren 119(H) 0 - 20 MM/HR 06/16/2020 12:04 PM HANDLE ATTACHER [facility] Blood BLOOD SPECIMEN / Unknown Venipuncture / Unknown 06/16/2020 11:25 AM HANDLE ATTACHER 06/16/2020 11:42 AM HANDLE ATTACHER Tiffanie Alvess [facility] - HEMATOLOG Y ORDERABLES Performing Organization Address City/[facility]/ZIP Co de Phone Number [address] [address], [place] [phone] * FERRITIN (06/16/2020 11:25 AM HANDLE ATTACHER) Ferritin 95 22 - 275 ng/mL 06/16/2020 12:47 PM HANDLE ATTACHER [facility] Blood BLOOD SPECIMEN / Unknown Venipuncture / Unknown 06/16/2020 11:25 AM HANDLE ATTACHER 06/16/2020 11:58 AM HANDLE ATTACHER Tiffanie Nguyen [employer]-BEHAVIORAL HEALTH TECH LAB - CHEMISTRY ORDERABLES [address] [address], [facility] [phone] * (ABNORMAL) LDH BLOOD (06/16/2020 11:25 AM HANDLE ATTACHER) Pathologist [facility] LDH Total 345(H) 125 - 243 Units/L 06/16/2020 12:11 PM HANDLE ATTACHER [facility] Blood BLOOD SPECIMEN / Unknown Venipuncture / Unknown 06/16/2020 11:25 AM HANDLE ATTACHER 06/16/2020 11:42 AM HANDLE ATTACHER Tiffanie Nguyen [employer] SAL[employer]-[facility] - CHEMISTRY ORDERABLES Performing Organization Address City/[facility]/ZIP Co de Phone Number [address] [address], [facility] [phone] * SARS-COV-2 (COVID-19) ANTIBODY IGG (06/16/2020 11:25 AM HANDLE ATTACHER) Pathologist [facility] CoV2 IGG Negative 06/16/2020 1:15 PM HANDLE ATTACHER [facility] Blood BLOOD SPECIMEN / Unknown Venipuncture / Unknown 06/16/2020 11:25 AM HANDLE ATTACHER 06/16/2020 11:58 AM HANDLE ATTACHER Narrative [facility] - 06/16/2020 1:15 PM HANDLE ATTACHER This serologic based test was developed by [employer] and its performance characteristics determined by [facility]. This test has not [...] due to past or present infection with xvo-LAXP-ChF-2 coronavirus strains. Rigorous scientific studies have not been completed to determine if detectable IgG to SARS-CoV-2 confers protective immunity. Tiffanie Nguyen [facility] - CHEMISTRY ORDERABLES [address] [address], [facility] [phone] * (ABNORMAL) IGG BLOOD (06/16/2020 11:25 AM HANDLE ATTACHER) IgG 324(L) 540-1,822 mg/dL 06/16/2020 12:29 PM HANDLE ATTACHER [facility] Blood BLOOD SPECIMEN / Unknown Venipuncture / Unknown 06/16/2020 11:25 AM HANDLE ATTACHER 06/16/2020 11:58 AM HANDLE ATTACHER Tiffanie Alvess [facility] - CHEMISTRY ORDERABLES Performing Organization Address [facility]/ZIP Co de Phone Number [address] [address], [facility] [phone] documented in this encounter Visit Diagnoses Diagnosis Pneumonia due to COVID-19 virus- Primary Diffuse large B-cell lymphoma, unspecified body region (HCC) Acute respiratory failure with hypoxia (HCC) Acute respiratory failure 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-cell lymphoma, unspecified B-cell lymphoma type, unspecified body region (HCC) Status post autologous bone marrow transplant (HCC) Bone marrow replaced by transplant 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 Anxiety Anxiety state, unspecified Restless legs syndrome (RLS) documented in this encounter Administered Medications Inactive Administered Medications - up to 3 most recent administrations Medication Order MAR Action Action Date Dose Rate Site immune globulin (GAMUNEX-C) 10 % 10 g 10 g, at 0-999 mL/hr, Intravenous, CONTINUOUS, Starting on Fri06/16/20 at 1200, Until Fri06/16/20 at 1359, Actual Weight for Rate Calculation: Wt 128.4 kg (283 lb 0.3 oz) Initiate IVIG at 0.5 mg/kg/min (39 mL/hr [...] order in Nursing Communications for monitoring instructions. $ New Bag/Syringe 06/16/2020 12:52 PM HANDLE ATTACHER 10 g 308 mL/hr Rate Change 06/16/2020 12:31 PM HANDLE ATTACHER 154 mL/hr $ New Bag/Syringe 06/16/2020 12:11 PM HANDLE ATTACHER 10 g 19 mL /hr immune globulin (GAMUNEX-C) 10 % 20 g 20 g, at 0-999 mL/hr, Intravenous, CONTINUOUS, Starting on Fri06/16/20 at 1400, Until Fri06/16/20 at 1459, Actual Weight for Rate Calculation: Wt 128.4 kg (283 lb 0.3 oz) Initiate IVIG at 0.5 mg/kg/min (39 mL/hr [...] Nursing Communications for monitoring instructions. Rate Change 06/16/2020 1:05 PM HANDLE ATTACHER 616 mL/hr ondansetron (ZOFRAN) injection 4 mg 4 mg, Intravenous, ONCE, 1 dose, On Fri06/16/20 at 1345, Administer over 2 to 5 minutes. $ Given 06/16/2020 1:23 PM HANDLE ATTACHER 4 mg documented in this encounter Additional Health Concerns Infection Onset Date Last Indicated Resolved Time COVID-19 Confirmed 03/06/2020 07/14/2020 0 4:33 AM HANDLE ATTACHER documented as of this encounter Care Teams Php Website Developer Relationship Specialty Start Date End Date Ran Nuñez MD [address] [place] [id number] PCP - General Family Medicine 03/22/19 12/22/20 Hillary Apple MD [address] [place] [id number] Hematology and Oncology 03/17/19 Bill Ferrera MD [address] [place] [address] Hematology and Oncology 03/17/19 08/27/21 Tony Dumont MD [address] [place] [address] Hematology and Oncology 03/17/19 Maryjo Reinoso, MANAGER AGENCY Senior Technical Specialist 03/17/19 Madyson Clay, PharmD 03/17/19 Dana Lala FREIGHT SALES BROKER-DRIVEWAY ATTENDANT [address] [place] [address] [address] [place] [address] Oncology 03/17/19 Tiffanie Nguyen, FREIGHT SALES BROKER-BEHAVIORAL HEALTH TECH [address] [place] [address] [address] [place] [address] Family Medicine 03/17/19 Stephanie Mahoney, RN Registered Nurse 03/17/19 10/29/21 Alycia Galvan, ROSEMARY 03/17/19 10/29/21 Cesar Tavares MD [address] [place] [address] Referring Physician Medical Oncology 03/23/19 Karie Jones, RN Registered Nurse 06/08/19 10/29/21 Joy Bob 09/22/19 Addison Shea, PharmD Pharmacist 09/22/19 10/29/21 documented as of this encounter
--- OUTSIDE RECORDS SUMMARY | 2024-08-18 00:27 | XMS_ITS | Encounter Summary ---
Author Organization [facility] Address [address] [facility] [place] [address] Care Team Providers Care Extractor Loader And Unloader Name Role Phone Hillary Apple MD Unavailable [phone] Bill Ferrera MD Unavailable [phone] Tony Dumont MD Unavailable [phone] Maryjo Reinoso [facility] Unavailable Unavailable Madyson Clay PharmD Unavailable Unavaila Dana Galicia COOK VACUUM KETTLE-YARN INSPECTOR Unavailable [phone] Tiffanie Nguyen COOK VACUUM KETTLE-COOK BOAT Unavailable [phone] Stephanie Mahoney RN Unavailable Unavailable Alycia Galvan RN Unavailable UnavailRan Mejía MD Primary Care Provider Cesar Tavares MD Unavailable [phone] Karie Jones RN Unavailable Unavailable Joy Bob Unavailable Fanta Addison Weinstein PharmD Unavailable Unavailab le Encounter Details Date Type Department Care Team (Late st Contact Info) Description 03/30/2020 Orders Only [facility] INTERNAL MED [address] [place] [id number] Joce Damian DO [id number] [place] [address] Social History Tobacco Use Types Packs/Day Years [...] st Contact Info) Description 08/26/2024 11:00 AM RADIOLOGIC TECH Office Visit [facility] - Pulmonology [address] [place] [address], [place] [address] Andrew Francis MD [address] [place] [address] OF PULMONARY/[place] [address] documented as of this encounter Visit Diagnoses Not on filedocumented in this encounter Additional Health Concerns Infection Onset Date Last Indicated Resolved Time COVID-19 Confirmed 03/06/2020 07/14/2020 0 4:33 AM RADIOLOGIC TECH COVID-19 Under Investigation 03/29/2020 03/29/2020 03/30/2020 9:42 AM CDT documented as of this encounter Care Teams Extractor Loader And Unloader Relationship Specialty Start Date End Date Ran Nuñez MD [address] [place] [address] PCP - General Family Medicine 03/22/19 12/22/20 Hillary Apple MD [address] [place] [address] Hematology and Oncology 03/17/19 Bill Ferrera MD [address] [place] [address] Hematology and Oncology 03/17/19 08/27/21 Tony Dumont MD [address] [place] [address] Hematology and Oncology 03/17/19 Maryjo Reinoso, TOOTH CUTTER Freight Brakeman 03/17/19 Madyosn Clay, PharmD 03/17/19 Dana Lala, COOK VACUUM KETTLE-YARN INSPECTOR [address] [place] [address] [address] [place] [address] Oncology 03/17/19 Tiffanie Nguyen, COOK VACUUM KETTLE-COOK BOAT [address] [place] [address] [address] [place] [address] Family Medicine 03/17/19 Stephanie Mahoney, RN Registered Nurse 03/17/19 10/29/21 Alycia Galvan, ROSEMARY 03/17/19 10/29/21 Cesar Tavares MD [address] [place] [address] [place] [address] Referring Physician Medical Oncology 03/23/19 Karie Jones, RN Registered Nurse 06/08/19 10/29/21 Joy Bob 09/22/19 Addison Shea, PharmD Pharmacist 09/22/19 10/29/21 documented as of this encounter
--- OUTSIDE RECORDS SUMMARY | 2024-08-18 00:27 | XMS_ITS | Encounter Summary ---
Author Organization [facility] Address [address] [place] [address] Care Team Providers Care Die Cast Die Maker Name Role Phone Hillary Apple MD Unavailable [phone] Bill Ferrera MD Unavailable [phone] Tony Dumont MD Unavailable [phone] Maryjo ReinosoW Unavailable Unavailable Madyson Clay PharmD Unavailable Unavaila Dana Galicia TRANSCRIBING OPERATOR HEAD-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 Unavailable [phone] Tiffanie Nguyen TRANSCRIBING OPERATOR HEAD-SEWING DEMONSTRATOR Unavailable [phone] Stephanie Mahoney RN Unavailable Unavailable Alycia Galvan RN Unavailable UnavailRan Mejía MD Primary Care Provider Cesar Tavares MD Unavailable [phone] Karie Jones RN Unavailable Unavailable Joy Bob Unavailable Fanta Addison Weinstein PharmD Unavailable Unavailab campbell Reason for Visit * Auth/Cert Specialty Diagnoses / Procedures Referred By Contac t Referred To Contact Diagnoses fever Referral ID Status Reason Start Date Expiration Date Visits Re quested Visits Authorized [id number] 1 1 Encounter Details Date Type Department Care Team (Late st Contact Info) Description 02/25/2020 9:41 PM CDT - 04/05/2020 9:14 PM CDT Hospital Encounter [facility] ACUTE [address] [place] [id number] Shalini Segal MD [address] DIV OF HEMATOLOGY & [place] [address] Savanah Bolton APRN-ERIKA [address] DIV OF HEMATOLOGY & [place] [address] Nilo Yun MD [address] DIV OF PULMONARY/[place] [address] John Garcia MD [address] DIV OF PULMONARY/[place] [address] Tony Dumont [address] [address] [place] [address] Bill Ferrera MD [address] [place] [address] Hillary Apple MD [address] DIV OF HEMATOLOGY & [place] [address] Kaden Apple MD [address] [place] [address] Hematology/Oncology Discharge Disposition: Family Nurse Practitioner Acute Care Social History Tobacco Use Types Packs/Day Years Used Date Smoking Tobacco: Former Cigarettes 0.5 18 1 984 - 2001 Smokeless Tobacco: Former Chew Quit: 2017 Tobacco Cessation:Counseling Given: Yes Alcohol Use Standard Drinks/Week Comments Not Currently [...] or suspected to have Coronavirus / COVID-19? Unable to assess 02/23/2020 7:46 AM CDT documented as of this encounter Last Filed Vital Signs Vital Sign Reading Time Taken Comments Blood Pressure 133/78 04/05/2020 4:00 PM CDT Pulse 123 04/05/2020 4:00 PM CDT Temperature 36.9 ??C (98.5 ??F) 04/05/2020 4:00 PM CD T Respiratory Rate 24 04/05/2020 4:00 PM CDT Oxygen Saturation 98% 04/05/2020 4:00 PM CDT Inhaled Oxygen Concentration 50% 09/2019 12:16 AM CDT Weight 113.7 kg (250 lb 10.6 oz) 03/30/2020 4:13 AM CDT Height 170.2 cm (5' 7.01 ) 02/28/2020 7:12 AM CD T Body Mass Index 39.25 02/28/2020 7:12 AM CDT documented in this [...] 02/25/2020 documented as of this encounter Discharge Summaries * Asim Ramirez, JOSE DAVID-SEWING DEMONSTRATOR - 04/05/2020 3:27 PM CDT Patient ID: Jalil Luis [id number] Admit date: 02/25/2020 Discharge date and time: 04/04/20 Admitting Physician: Hillary Apple MD Discharge Physician: Hillary Apple MD Present on Admission: Marginal Zone Lymphoma in remission, S/P Autologous SCT, COVID-19,Anxiety, Depression, RIJ DVT, persistent fevers, S/P splenectomy Discharge Diagnoses: Marginal Zone Lymphoma in remission, S/P Autologous SCT, COVID-19,Anxiety, Depression, RIJ DVT, persistent fevers, Headaches, GGO, RLS, s/p splenectomy Admission Condition: stable Discharged Condition: good Indication for Admission: For evaluation and treatment of persistent fevers Hospital Course: Aurelio was directly admitted to the hospital to complete an infectious work-up r/t to persistent fevers (non-neutropenic). He had tested positive for COVID-19 in early January 2020, but had 2 negative COVID swabs since then although continued to be intermittently febrile with unknown etiology. He was put on dex and IV Cefepime 2g q8h on admission and a complete infectious work-up was completed including; blood cultures, CT C/A/P, UA and urine culture and multiple viral tests. His CTScan was concerning for an active pna, showing GGO. Pulmonary was consulted and recommended holdingoff on bronch. ID was also consulted for additional recommendations, and was started on IV Vanc as well to treat the pna. Patient reported to ID that he additionally had been experiencing severe HAs,photophobia and neck pain for up to 2 weeks prior to admission. These symptoms were concerning for possible meningitis and a Brain MRI, neurology consult and LP were suggested, along with multiple other infectious labs. The CSF analysis was negative for Meningitis and several infectious studies were unremarkable for meningitis. His HAs and neck symptoms improved with prn pain medication. On 03/01/20 he became increasingly SOB and dyspneic at rest requiring HFNC which prompted repeat CT chest imaging. It showed increased GGO. Pulmonary was consulted again and and a bronch was completed. Sampleswere sent for fungal, viral, and bacterial culture. He was requiring significant vent support during bronch, and was intubated and transferred to the ICU. Labs were mostly unremarkable except for covid 19 testing on BAL which was positive. He was extubated on 03/08/20. He started on MATH+ protocol on03/08/20 while also receiving remdesivir, convalescent plasma, and high dose steroids at that time. He remained stable on CPAP, and was transferred out of the ICU to the floor on 03/14/20. Since transferring out of the ICU he has been very stable on CPAP at night and with activity alternating with HFNC at rest. Working with RT for titrating O2 requirement. Currently on 50% CPAP and tapering off steroid with inflammatory markers trending down. He has afebrile since 03/09/20. A repeat Covid test was done on 03/29/20 which remains positive but he has been otherwise stable. He has been working diligently with PT and his exercise tolerance is slowly improving. Anticoagulation will switch back to Eliquis at discharge. He will be discharge to an LTAC to continue weaning off of supplemental oxygen and continued PT. Consults: Pulm Neurology ID PT/OT Significant Diagnostic Studies: Covid swab (03/29/20): positive Bronch (03/06/20): COVID +, otherwise negative. Path reactive alveolar parenchyma with mild chronic inflammation Covid swab (03/07/20): positive CXR (03/20/20): Bilateral interstitial and airspace opacities are mildly improved. No new areas of airspace consolidation observed. There is suggestion of small bilateral pleural effusions with adjacent atelectasis or airspace disease. Venous Duplex (03/03/20): Negative for DVT CT Chest (03/02/30): Altered distribution of prominent geographic GGO within upper and lower lung zones bilaterally. Re-demonstration of nonocclusive thrombus within left brachiocephalic vein which extends to the superior vena cava. ECHO (03/02/20): ~LVEF 68% CXr (03/05/20): Increase in diffuse patchy airspace opacities in bilateral lungs concerning for multifocal pneumonia. Small left pleural effusion is suggested. CXr (03/06/20): Bilateral interstitial and airspace opacities consistent with pulmonary edema or pneumonia, slightly increased. There is no pleural effusion or pneumothorax. CXr (03/10/20):There is multifocal consolidation in both lungs, concerning for multifocal pneumonia, improved from prior. Interstitial opacities could also represent underlying mild pulmonary edema, improved from prior. CXr (03/20/20): Bilateral interstitial and airspace opacities are mildly improved. No new areas of airspace consolidation observed. There is suggestion of small bilateral pleural effusions with adjacent atelectasis or airspace disease. ?? Discharge Exam: General appearance - alert, well appearing, in no distress, and acyanotic in no respiratory distress Mental status - alert, oriented to person, place, and time, normal mood, behavior, speech, dress, motor activity, and thought processes, affect appropriate to mood Mouth - mucous membranes moist, pharynx normal without lesions Chest - clear to auscultation, no wheezes, rales or rhonchi, symmetric air entry, no tachypnea, retractions or cyanosis Heart - normal rate and regular rhythm, no murmurs noted Abdomen - soft, nontender, nondistended, no masses or organomegaly, bowel sounds normal Neurological - alert, oriented, normal speech, no focal findings or movement disorder noted Musculoskeletal - no joint tenderness, deformity or swelling, no muscular tenderness noted Extremities - peripheral pulses normal, no pedal edema, no clubbing or cyanosis Skin - normal coloration and turgor, resolving folicultis rash limited to upper chest, no suspicious skin lesions noted Discharge Medication List: Take this medicine as scheduled Bactrim DS (sulfamethoxazole/?trimethoprim) 800 mg/160 mg Oral Tablet. Take 1 tablet by mouth every Friday, Friday, and Friday. acyclovir (Zovirax) 400 mg Oral Tablet. 2 tablets at 7:00 am 2 tablets at 7:00 pm escitalopram oxalate (Lexapro) 10 mg Oral Tablet. 1 tablet at 7:00 am rOPINIRole (Requip) 0.25 mg Oral Tablet. 1 tablet at 7:00 pm Symbicort (budesonide/?formoterol fumarate dihydrate) 80 mcg/4.5 mcg Inhaler. 2 puffs at 7:00 am 2 puffs at 7:00 pm Vitamin D 2,000 units Capsule. 1 capsule at 7:00 am loratadine (Claritin) 10 mg Oral Tablet. 1 tablet at 7:00 am Take this medicine as directed penicillin v potassium 250 mg Oral Tablet. 250mg, twice daily, for bacterial ppx since pt is asplenic do not stop Eliquis (apixaban) 5 mg Oral Tablet. 5mg twice daily, plan to stop 2-4 weeks post hospitalization predniSONE 10 mg Oral Tablet. 20mg 04/03-04/06, 10mg 04/07-, 5mg 04/11 thereafter until stim test for adrenal insufficiency albuterol sulfate (Proair HFA, Ventolin HFA, Proventil HFA) 90 mcg/actuation Inhaler. 2 puff every 6 hours while weaning oxygen traMADol hydrochloride (Ultram) 50 mg Oral Tablet. 50 mg twice daily , 50 mg daily 04/07-, Then as needed for headaches Take this medicine as needed ondansetron (Zofran ODT) 8 mg Orally Disintegrating Tablet. Place 1 tablet into the mouth 2 times every day for nausea or vomiting. As needed medicine. prochlorperazine (Compazine) 10 mg Oral Tablet. Take 1 tablet by mouth 4 times every day for nausea or vomiting. As needed medicine. polyethylene glycol 3350 (Miralax) 17 G Powder for Oral Solution. Take 1 dose (17 grams) by mouth every day for constipation. As needed medicine. oxyCODONE hydrochloride 5 mg Oral Tablet. Take 1 tablet by mouth every 4 hours for backache. As needed medicine. Celebrex (celecoxib) 100 mg Oral Capsule. Take 1 capsule by mouth 2 times every day for joint pain. As needed medicine. Disposition: Next MIGUEL Visit: ~1 month but will base on progress at facility Follow Up Outside BMT Clinic: none currently Labs for next BMT visit: Basic, IgG, COVID swab, LDH, Ferritin, ESR, CRP and D Dimer Infusions: none Isolation Status: negative pressure, contact, and droplet precaution Pending Issues at Discharge: Steriod taper Taper Ultram to PRN Signed: Asim Ramirez APRN, DB [facility] Marrow [facility] Transplant Pager: [phone] documented in this encounter Discharge Instructions * Discharge Instructions* Asim Ramirez APRN-SEWING DEMONSTRATOR - 04/05/2020 3:38 PM CDT Patient Education Patient Instructions: DO NOT STOP PEN VK Your Primary MIGUEL Is: Tiffanie Your Primary maintenance custodianBlasting Worker Is: Khushboo Cigarette Smoking and Your Health WHAT YOU NEED TO KNOW: What are the risks to my health if I smoke tobacco? Nicotine and other chemicals found in tobacco and e-cigarettes can damage every cell in your body. Even if you are a light smoker, you have an increased risk for cancer, heart disease, and lung disease. If you are or have diabetes, smoking increases your risk for complications. What are the benefits to my health if I stop smoking? ?? You decrease respiratory symptoms such as coughing, wheezing, and shortness of breath. ?? You reduce your risk for cancers of the lung, mouth, throat, kidney, bladder, pancreas, stomach,and cervix. If you already have cancer, you increase the benefits of chemotherapy. You also reduce your risk for cancer returning or a second cancer from developing. ?? You reduce your risk for heart disease, blood clots, heart attack, and stroke. ?? You reduce your risk for lung infections, and diseases such as pneumonia, asthma, chronic bronchitis, and emphysema. ?? Your circulation improves. More oxygen can be delivered to your body. If you have diabetes, you lower your risk for complications, such as kidney, artery, and eye diseases. You also lower your risk for nerve damage. Nerve damage can lead to amputations, poor vision, and blindness. ?? You improve your body's ability to heal and to fight infections. What are the health benefits to others if I stop smoking? Tobacco is harmful to nonsmokers who breathe in your secondhand smoke. The following are ways the health of others around you may improve when you stop smoking: ?? You lower the risks for lung cancer and heart disease in nonsmoking adults. ?? If you are , you lower the risk for miscarriage, early delivery, low weight, and stillbirth. You also lower your baby's risk for SIDS, obesity, developmental delay, and neurobehavioral problems, such as ADHD. ?? If you have children, you lower their risk for ear infections, colds, pneumonia, bronchitis, andasthma. Where can I find more information and support to stop smoking? ?? [email or web address] Phone: Web Address: [email or web address] CARE AGREEMENT: You have the right to help plan your care. Learn about your health condition and how it may be treated. Discuss treatment options with your healthcare providers to decide what care you want to receive. You always have the right to refuse treatment. The above information is an charge aide only. It is not intended as medical advice for individual conditions or treatments. Talk to your doctor, nurse or pharmacist before following any medical regimen to see if it is safe and effective for you. ?? Copyright [employer] 2019 Information is for End User's use only and may not be sold, redistributed or otherwise used for commercial purposes. All illustrations and images included in CareNotes?? are the copyrighted property of [employer], [employer]. or [employer] documented in this encounter Medications at Time [...] daily with food acyclovir (ZOVIRAX) 400 MG tablet Take 2 tablets by mouth 2 times daily 360 tablet 3 11/10/2019 06/07/2020 apixaban (ELIQUIS) 5 MG tablet TAKE 10MG BY MOUTH TWICE DAILY FOR 7 DAYS. THEN, 5MG TABLET TWICE DAILY THEREAFTER DIRECTED. 09/27/2019 06/16/2020 apixaban (ELIQUIS) 5 MG tablet Take 1 tablet by mouth 2 times daily 180 tablet 3 11/10/2019 08/31/2020 budesonide-formotero l (SYMBICORT) 80-4.5 MCG/ACT inhaler Inhale 2 puffs by mouth 2 times daily 04/05/2020 06/16/2020 celecoxib (CELEBREX) 100 MG capsule Take 1 capsule by mouth 2 times daily as needed (Joint pain) 04/05/2020 06/16/2020 escitalopram (LEXAPRO) 10 MG tablet Take 1 tablet by mouth once daily 30 tablet 06/28/2019 07/03/2020 loratadine (CLARITIN) 10 MG tablet Take 1 tablet by mouth once daily 04/06/2020 06/16/2020 ondansetron, disintegrating, (ZOFRAN ODT) 8 MG tablet Dissolve 1 tablet on top of tongue then swallow with saliva every 8 hours as needed for nausea or vomiting 04/19/2019 12/20/2021 pantoprazole EC (PROTONIX) 40 MG tablet Take 1 tablet by mouth once daily 04/06/2020 06/16/2020 penicillin v potassium (VEETIDS) 250 MG tabletIndications:Di [...] needed 04/27/2019 12/20/2021 rOPINIRole (REQUIP) 0.25 MG tablet Take 0.25 mg by mouth 10/29/201906/04 rOPINIRole (REQUIP) 0.25 MG tabletIndications:Re stless Leg Syndrome Take 1 tablet by mouth at bedtime Reasons: Restless Leg Syndrome 90 tablet 3 10/29/2019 01/02/2021 saline nasal spray (OCEAN; BABY AYR) 0.65 % nasal spray [place] 2 sprays into each nostril every 2 hours as needed for Dry Nose 04/05/2020 12/20/2021 sulfamethoxazole-tri methoprim (BACTRIM DS; SEPTRA DS) 800-160 MG tablet Take 1 tablet by mouth 11/01/2019 06/16/2020 sulfamethoxazole-tri methoprim (BACTRIM DS; SEPTRA DS) 800-160 MG tabletIndications:PJ P prophylaxis s/p stem cell transplant Take 1 tablet by mouth every Friday, Friday & Friday Reasons: PJP prophylaxis s/p stem cell transplant 12 tablet 3 11/01/2019 01/02/2021 vitamin D3-cholecalciferol (CHOLECALCIFEROL) 25 MCG (1000 UNITS) tablet Take 2 tablets by mouth once daily 04/06/2020 07/04/2020 documented as of this encounter Progress Notes * Alecia Melissa RN - 04/05/2020 1:23 PM CDT Facility Transfer Note Level of Care: Actual level of care at discharge: Residential Acute Care (LTAC) Facility Name: (include name of person confirming admission): Actual discharge provider: LAURA [address] Made Aware of Special Needs (if applicable): yes - COVID +, follow med list on d/c summary note RN Call Report to:[phone] RN Fax D/C Orders to: [phone] (CM faxed orders and d/c summary note and noted to follow med list on d/c summary note and notified liaison Louise) Transportation (company and number): [employer] [phone] Certificate of Medical Necessity rationale: HFNC, COVID+ Date/time of transfer: 04/05/2020 at 1800 Accepting MD: Dr. Eng Completed and Signed [id number] (if applicable): n/a Family/Other Notified of Transfer (name/phone): notified patient by phone, he will notify his family Authorization Skilled Care: Wallace obtained Authorization for Transportation: Verified Qualifying Stay(Skilled Only): NOT APPLICABLE Comments: Alecia Melissa RN * Asim Ramirez JOSE DAVID-SEWING DEMONSTRATOR - 04/05/2020 9:21 AM CDT Autologous Hematopoietic Stem Cell Daily Note: PATIENT IDENTIFIERS: JALIL LUIS is a 49 year old male who is Day +168 (Day 0 is 10/20/19) of an autologous peripheral blood stem cell transplant with a 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 INTERVAL HISTORY: Doing well this morning Denies N/V/F/C/D Reports stable bowel and bladder O2 is stable HFNC at 50% PT going well Yesterday was able to stand at SOB for 8 minutes, which is the best he has done to date Does become tachy with activity ROS: A comprehensive review of systems was negative except for: as noted above MEDICATIONS FOR CURRENT ENCOUNTER: SCHEDULED MEDICATIONS: 0.9% NaCl injection 3 mL, Intracatheter, q8h albuterol HFA (PROVENTIL;VENTOLIN;PROAIR) 108 (90 Base) MCG/ACT inhaler 2 puff, Inhalation, q4h artificial tears ophthalmic ointment, Each Eye, q8h budesonide-formoterol (SYMBICORT) 80-4.5 MCG/ACT inhaler 2 puff, Inhalation, BID enoxaparin (LOVENOX) injection 120 mg, Subcutaneous, q12h escitalopram (LEXAPRO) tablet 10 mg, Oral, QDAY loratadine (CLARITIN) tablet 10 mg, Oral, QDAY pantoprazole EC (PROTONIX) tablet 40 mg, Oral, QDAY penicillin v potassium (VEETIDS) tablet 500 mg, Oral, q12h predniSONE (DELTASONE) tablet 20 mg, Oral, QDAY WITH BREAKFAST rOPINIRole (REQUIP) tablet 0.25 mg, Oral, AT BEDTIME sulfamethoxazole-trimethoprim (BACTRIM DS; SEPTRA DS) 800-160 MG tablet 1 tablet, Oral, MON, WED AND FRI thiamine (VITAMIN B-1) tablet 200 mg, Oral, q12h traMADol (ULTRAM) tablet 50 mg, Oral, q8h valACYclovir (VALTREX) tablet 500 mg, Oral, BID ?? vitamin D3-cholecalciferol (CHOLECALCIFEROL) 25 MCG (1000 UNITS) tablet 2,000 Units, Oral, QDAY ?? CONTINUOUS MEDICATIONS: PRN MEDICATIONS: 0.9% NaCl injection 1-10 mL, Intracatheter, PRN acetaminophen (TYLENOL) tablet 325 mg, Oral, q4h PRN celecoxib (CeleBREX) capsule 100 mg, Oral, BID PRN magnesium sulfate 2 g in 50 mL bolus, Intravenous, PRN ondansetron (disintegrating) (ZOFRAN ODT) tablet 4 mg, Oral, q8h PRN ondansetron (ZOFRAN) injection 4 mg, Intravenous, q8h PRN oxyCODONE (immediate release) (ROXICODONE) tablet 5 mg, Oral, q4h PRN prochlorperazine (COMPAZINE) injection 10 mg, Intravenous, q6h PRN prochlorperazine (COMPAZINE) tablet 5 mg, Oral, q8h PRN ?? saline nasal spray (OCEAN; BABY AYR) 0.65 % nasal spray 2 spray, Each Nostril, q2h PRN VITALS: Vitals: 04/05/20 0016 04/05/20 0036 04/05/20 0547 04/05/20 0828 BP: 131/83 128/87 111/88 Pulse: 103 107 106 106 Resp: 22 24 Temp: 98.4 ??F 98.4 ??F 97.9 ??F SpO2: 98% 99% 99% 98% Weight: Height: Wt Readings from Last 3 Encounters: 03/30/20 113.7 kg (250 lb 10.6 oz) 02/26/20 120.2 kg (265 lb) 11/15/19 123.4 kg (272 lb) Date 04/04/20699 - 04/05/20 0604/05/20699 - 04/06/20 0659 Shift 4252-2079 9372-2895 24 Hour Total 1866-7147 7606-7471 24 Hour Total INTAKE P.O. 2650 150 2800 Shift Total(mL/kg) 2650(23.3) 150(1.3) 2800(24.6) OUTPUT Urine(mL/kg/hr) 1325(1) 550(0.4) 1875(0.7) Shift Total(mL/kg) 1325(11.7) 550(4.8) 1875(16.5) NET 1325 -400 925 Weight (kg) 113.7 113.7 113.7 113.7 113.7 113.7 PHYSICAL EXAM: General appearance - alert, well appearing, in no distress, and acyanotic in no respiratory distress Mental status - alert, oriented to person, place, and time, normal mood, behavior, speech, dress, motor activity, and thought processes, affect appropriate to mood Mouth - mucous membranes moist, pharynx normal without lesions Chest - fine crackles to bilateral bases, no wheezes, symmetric air entry, no tachypnea, retractions or cyanosis Heart - normal rate and regular rhythm, no murmurs noted Abdomen - soft, nontender, nondistended, no masses or organomegaly, bowel sounds normal Neurological - alert, oriented, normal speech, no focal findings or movement disorder noted Musculoskeletal - no joint tenderness, deformity or swelling, no muscular tenderness noted Extremities - peripheral pulses normal, no pedal edema, no clubbing or cyanosis Skin - normal coloration and turgor, resolving folliculitis to chest, no suspicious skin lesions noted LABS: Recent Labs Component Name 04/05/20 0004 04/03/20 0533 03/31/20 0020 03/18/20 2357 WBC 10.4 11.4* 12.1* - 16.8* RBC 3.27* 3.54* 3.44* - 3.42* HGB 9.6* 10.5* 10.2* - 10.0* HCT 30.1* 32.5* 30.7* - 30.1* MCV 92.0 91.8 89.2 - 88.0 MCH 29.4 29.7 29.7 - 29.2 MCHC 31.9* 32.3 33.2 - 33.2 PLTCOUNT 275 276 238 - 188 RDWSD 79.8* 79.7* 75.8* - 62.7* RDW 24.3* 24.4* 24.3* - 21.2* MPV 12.9* 12.3 12.5 - - NRBCABS 0.50* 0.52* 0.79* - 1.83* NRBCAUTOPCT 4.8* 4.5* 6.5* - 10.9* NEUTPCT 70.6* 72.3* 76.3* - - LYMPHSPCT 13.7* 13.7* 15.0* - - MONOPCT 9.1 8.9 5.3 - - EOSPCT 2.8 2.0 1.1 - - BASOPCT 0.5 0.5 0.3 - - IMMGRANSPCT 3.3* 2.6* 2.0* - - NEUTABS 7.4* 8.3* 9.2* - 15.96* LYMPHS 1.4 1.6 1.8 - 0.17* MONO 0.95* 1.02* 0.64 - 0.50 EOS 0.29 0.23 0.13 - - BASO 0.05 0.06 0.04 - - TOTCELLCNT - - - - 100 - = values in this interval not displayed. Recent Labs Component Name 04/05/20204/03/2053203/31/20 0040 BUN 18 18 21 CREATININE 0.8 0.8 0.9 NA 139 141 143 POTASSIUM 3.8 4.0 4.2 CL 102 100 102 CO2 31* 32* 28 CALCIUM 8.8 9.4 8.6 PROT 6.1 5.7* 5.6* ALB 2.4* 2.6* 2.5* TBILI 0.2 0.3 0.2 ALKPHOS 104 105 103 ALT 44 51 56* AST 18 16 22 ANIONGAP 10 13 17 BCR 23 23 23 OSMOLALITY 291 293 300 AGRATIO 0.6* 0.8* 0.8* EGFR >60 >60 >60 Recent Labs Component Name 04/05/20 0003 04/03/20 0533 03/31/20 0040 MAGNESIUM 1.9 1.9 1.9 Recent Labs Component Name 04/05/20 0003 04/03/20 0533 03/31/20 0040 PHOS 3.5 4.6 4.0 Recent Labs Component Name 04/05/20 0003 04/03/20 0533 03/31/20 0000 CRP 2.5* 1.7* 2.9* LDH Total Date Value Ref Range Status 04/05/2020 349 (H) 125 - 243 Units/L Final 04/03/2020 372 (H) 125 - 243 Units/L Final 03/31/2020 450 (H) 125 - 243 Units/L Final Recent Labs Component Name 04/05/20 0003 04/03/20 0533 03/31/20 0000 FERRITIN 451* 467* 518* Recent Labs Component Name 04/05/20 0004 04/03/20 0533 03/31/20 0020 ESR 82* 88* 77* Recurring Labs: Ig/31- 340 IVIG given CD4: 02/27/20-68 PATHOLOGY: BMBX (03/03/20): Path - Normocellular marrow with maturing trilineage hematopoiesis. NISHA Flow - NISHA Cyto - 46,XY FISH - negative INFECTIOUS: Covid swab (03/29/20): positive BCx (03/24/20): NGTD BCx (03/21/20): NGTD Covid swab (03/07/20): positive Bronch (03/06/20): COVID +, otherwise negative. Path reactive alveolar parenchyma with mild chronic inflammation RADIOLOGY: CXR (03/20/20): Bilateral interstitial and airspace opacities are mildly improved. No new areas of airspace consolidation observed. There is suggestion of small bilateral pleural effusions with adjacent atelectasis or airspace disease. Venous Duplex (03/03/20): Negative for DVT CT Chest (03/02/30): Altered distribution of prominent geographic GGO within upper and lower lung zones bilaterally. Re-demonstration of nonocclusive thrombus within left brachiocephalic vein which extends to the superior vena cava. ECHO (03/02/20): ~LVEF 68% ASSESSMENT/PLAN: JALIL LUIS is a 49 year old male, who is Day +168 (Day 0 is 10/20/19) of an autologous peripheral blood stem cell transplant with a 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 SYSTEMS: Marginal Zone Lymphoma in CR2 pre-transplant Schema: 5A Prep: BEAM, Cell count 10.4 x 10^6 CD34+cells/kg in 5 bags; day [address] A/P -- BMBx completed (03/03) -Transfusion threshold: Hgb > 7; Plt > 10; CMV +, transfusion pre meds: none needed -Engraftment: ANC day +9 (10/29/19); plt engraftment 11/03/19 (day +14) OI prophylaxis: Bacterial:??Pen VK, will need for life as he is asplenic PJP:??Bactrim DS MWF Viral: Valtrex 500mg BID COVID -tested positive early January, asymptomatic at that time -Covid from bronch 03/07 and PROVISIONING ANALYST swab 03/07 both positive -received remdesivir 03/08 - 03/12 & convalescent plasma 03/10 -following discussion with pulm pt will likely benefit from longer steroid taper than outlined in MATH+ protocol -steroids switched to pred 03/18 then tapered to 60mg 03/20; >>start slow taper over 2-3 weeks on 03/23 >>taper by 10mg every 4 days>>04/03 20 mg daily, next taper 04/07. After taper complete, plan to remain on 5mg daily until able to do stim test. -continue altuberol and symbicort and O2 monitoring -stopped vit C and zinc per MATH+ protocol -continue PO thiamine until discharge Hypoxia -overall stable at this time; continues on 50% CPAP alternating with HFNC -exercise tolerance continues to slowly improving -started long acting beta agonist/corticosteroid (symbicort) 03/22 -09/05 COVID, see above -intubated 03/06/20 -03/08/20 -Bronch'd 03/06/20>>COVID + otherwise unremarkable Arthralgias--Resolved -? 09/05 known COVID vs steroid taper -no symptoms for several days >>change Celebrex to PRN Right IJ venous clot 09/27/19 -Lovenox 120 mg Q12H while inpt -previously on Eliquis 5 mg BID, will resume at discharge Pertinent History: Anxiety/Depression: Lexapro 10 mg daily Restless Leg Syndrome: Requip 0.25 mg QHS Headaches: tramadol 50 mg q8h. LP completed 03/01. Results negative for meningitis. Plan to wean this in outpt setting Discharge Planning: Patients preferred contact information: cell Caregiver: sister, girlfriend Preferred D/C Pharmacy: [facility] Intended lodging: home Referring provider: Cesar Tavares Disposition: Remain on 7N. Discharge LTAC today pending bed availability Asim Ramirez APRN, TALENT ACQUISITION OPERATIONS MANAGER-C [facility] Blood Marrow and Transplant Pager: [phone] I independently interviewed and examined??Jalil Luis??with the BMT advanced practice provider. I reviewed my findings and assessment with the advanced practice provider and the patient. I reviewed the below note. Please see note for full detail. ?? Day 168 Continue to wean O2 Tachy with activity Clarify the low HRs?? Labs without concern ?? Note IgG low -??supplemented with??IVIG??on 04/03 OI: PCN VK, Bactrim, VCV Pred 20mg QD - weaned 04/03, weaning by 10mg q4d Will need to stay on 5mg until able to see us outpatient and do stim test ?? Other meds at discharge: Change Lovenox to Apixaban Change celebrex to prn Ultram is scheduled - change ultram to BID and wean to daily and then prn D/c pantoprazole D/c thiamine ?? Dispo: Should have room available at [facility] today, they could not accept yesterday No need for routine labs Need contact info for LT for outpatient team to be able to communicate ?? RTC to IgG along with basic labs and inflamm markers Will need CoViD swab upon return along with isolation until swab negative ? Hillary Apple MD MSc wreath and garland maker hand Interim Director, Division of Hematology/Oncology [facility] * Alecia Melissa RN - 04/04/2020 3:36 PM CDT CM updated by Louise with [facility], they have a bed for patient, but no staffing tonight d/t call in, unable to take a new admission today. Louise will provide CM with transfer info tomorrow morning. Team updated. 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 INTERVAL HISTORY: Pt O2 is stable but decreased this weekend CPAP at night and activities 50% High flow is at 50% O2 and 30L Appetite is good Denies N/V/D/F/C Active as can be Happy to have bed at LTAC facility tomorrow R ear feels like full of fluid after swimming ROS: A comprehensive review of systems was negative except for: as noted above MEDICATIONS FOR CURRENT ENCOUNTER: SCHEDULED MEDICATIONS: 0.9% NaCl injection 3 mL, Intracatheter, q8h albuterol HFA (PROVENTIL;VENTOLIN;PROAIR) 108 (90 Base) MCG/ACT inhaler 2 puff, Inhalation, q4h artificial tears ophthalmic ointment, Each Eye, q8h budesonide-formoterol (SYMBICORT) 80-4.5 MCG/ACT inhaler 2 puff, Inhalation, BID celecoxib (CeleBREX) capsule 100 mg, Oral, BID enoxaparin (LOVENOX) injection 120 mg, Subcutaneous, q12h escitalopram (LEXAPRO) tablet 10 mg, Oral, QDAY loratadine (CLARITIN) tablet 10 mg, Oral, QDAY pantoprazole EC (PROTONIX) tablet 40 mg, Oral, QDAY penicillin v potassium (VEETIDS) tablet 500 mg, Oral, q12h predniSONE (DELTASONE) tablet 20 mg, Oral, QDAY WITH BREAKFAST rOPINIRole (REQUIP) tablet 0.25 mg, Oral, AT BEDTIME sulfamethoxazole-trimethoprim (BACTRIM DS; SEPTRA DS) 800-160 MG tablet 1 tablet, Oral, MON, WED AND FRI thiamine (VITAMIN B-1) tablet 200 mg, Oral, q12h traMADol (ULTRAM) tablet 50 mg, Oral, q8h valACYclovir (VALTREX) tablet 500 mg, Oral, BID ?? vitamin D3-cholecalciferol (CHOLECALCIFEROL) 25 MCG (1000 UNITS) tablet 2,000 Units, Oral, QDAY ?? CONTINUOUS MEDICATIONS: PRN MEDICATIONS: 0.9% NaCl injection 1-10 mL, Intracatheter, PRN acetaminophen (TYLENOL) tablet 325 mg, Oral, q4h PRN magnesium sulfate 2 g in 50 mL bolus, Intravenous, PRN ondansetron (disintegrating) (ZOFRAN ODT) tablet 4 mg, Oral, q8h PRN ondansetron (ZOFRAN) injection 4 mg, Intravenous, q8h PRN oxyCODONE (immediate release) (ROXICODONE) tablet 5 mg, Oral, q4h PRN prochlorperazine (COMPAZINE) injection 10 mg, Intravenous, q6h PRN prochlorperazine (COMPAZINE) tablet 5 mg, Oral, q8h PRN ?? saline nasal spray (OCEAN; BABY AYR) 0.65 % nasal spray 2 spray, Each Nostril, q2h PRN VITALS: Vitals: 04/04/20 0755 04/04/20 0834 04/04/20 1144 04/04/20 1149 BP: 130/85 165/61 Pulse: (!) 113 46 Resp: 20 Temp: 98.7 ??F 97.1 ??F SpO2: 96% 99% 94% Weight: Height: Wt Readings from Last 3 Encounters: 03/30/20 113.7 kg (250 lb 10.6 oz) 02/26/20 120.2 kg (265 lb) 11/15/19 123.4 kg (272 lb) Date 04/03/20 07 - 04/04/20 0659 04/04/20 07 - 04/05/20 0659 Shift 8722-6091 8471-9402 24 Hour Total 6427-7257 2112-5142 24 Hour Total INTAKE P.O. 3240 300 3540 1060 1060 I.V.(mL/kg/hr) 336.7(0.2) 336.7(0.1) Shift Total(mL/kg) 3576.7(31.5) 300(2.6) 3876.7(34.1) 1060(9.3) 1060(9.3) OUTPUT Urine(mL/kg/hr) 850(0.6) 450(0.3) 1300(0.5) 925 925 Shift Total(mL/kg) 850(7.5) 450(4) 1300(11.4) 925(8.1) 925(8.1) NET 2726.7 -150 2576.7 135 135 Weight (kg) 113.7 113.7 113.7 113.7 113.7 113.7 PHYSICAL EXAM: Physical Examination: General appearance - alert, well appearing, and in no distress and oriented to person, place, and time Mental status - alert, oriented to person, place, and time, normal mood, behavior, speech, dress, motor activity, and thought processes Mouth - mucous membranes moist, pharynx normal without lesions Chest - exp wehezes in BULto auscultation, no wheezes, rales or rhonchi, symmetric air entry Heart - normal rate, regular rhythm, normal S1, S2, no murmurs, rubs, clicks or gallops Abdomen - soft, nontender, nondistended, no masses or organomegaly Extremities - peripheral pulses normal, no pedal edema, no clubbing or cyanosis Skin - normal coloration and turgor, no rashes, no suspicious skin lesions noted LABS: Recent Labs Component Name 04/03/20 0533 03/31/20 0020 03/29/20 0024 03/18/20 2357 WBC 11.4* 12.1* 12.7* - 16.8* RBC 3.54* 3.44* 3.50* - 3.42* HGB 10.5* 10.2* 10.3* - 10.0* HCT 32.5* 30.7* 31.4* - 30.1* MCV 91.8 89.2 89.7 - 88.0 MCH 29.7 29.7 29.4 - 29.2 MCHC 32.3 33.2 32.8 - 33.2 PLTCOUNT 276 238 237 - 188 RDWSD 79.7* 75.8* 76.1* - 62.7* RDW 24.4* 24.3* 24.5* - 21.2* MPV 12.3 12.5 12.3 - - NRBCABS 0.52* 0.79* 1.08* - 1.83* NRBCAUTOPCT 4.5* 6.5* 8.5* - 10.9* NEUTPCT 72.3* 76.3* 81.1* - - LYMPHSPCT 13.7* 15.0* 10.1* - - MONOPCT 8.9 5.3 6.1 - - EOSPCT 2.0 1.1 0.5 - - BASOPCT 0.5 0.3 0.2 - - IMMGRANSPCT 2.6* 2.0* 2.0* - - NEUTABS 8.3* 9.2* 10.3* - 15.96* LYMPHS 1.6 1.8 1.3 - 0.17* MONO 1.02* 0.64 0.78* - 0.50 EOS 0.23 0.13 0.06 - - BASO 0.06 0.04 0.02 - - TOTCELLCNT - - - - 100 - = values in this interval not displayed. Recent Labs Component Name 04/03/20 0533 03/31/20 0040 03/29/20 0024 BUN 18 21 19 CREATININE 0.8 0.9 0.8 NA 141 143 141 POTASSIUM 4.0 4.2 4.4 CL 100 102 99 CO2 32* 28 30* CALCIUM 9.4 8.6 8.6 PROT 5.7* 5.6* 5.8* ALB 2.6* 2.5* 2.6* TBILI 0.3 0.2 0.2 ALKPHOS 105 103 103 ALT 51 56* 74* AST 16 22 26 ANIONGAP 13 17 16 BCR 23 23 24* OSMOLALITY 293 300 295 AGRATIO 0.8* 0.8* 0.8* EGFR >60 >60 >60 Recent Labs Component Name 04/03/20 0533 03/31/20 0040 03/29/20 0024 MAGNESIUM 1.9 1.9 2.0 Recent Labs Component Name 04/03/2033 03/31/20 0040 03/29/20 0024 PHOS 4.6 4.0 4.4 Recent Labs Component Name 04/03/2033 03/31/20 0000 03/29/20 0024 CRP 1.7* 2.9* 3.1* LDH Total Date Value Ref Range Status 04/03/2020 372 (H) 125 - 243 Units/L Final 03/31/2020 450 (H) 125 - 243 Units/L Final 03/29/2020 428 (H) 125 - 243 Units/L Final Recent Labs Component Name 04/03/2053203/31/20 0000 03/29/20 0024 FERRITIN 467* 518* 626* Recent Labs Component Name 04/03/2033 03/31/20 0020 03/29/20 0024 ESR 88* 77* 74* Recurring Labs: Ig/31- 340 IVIG given CD4: 02/27/20-68 PATHOLOGY: BMBX (03/03/20): Path - Normocellular marrow with maturing trilineage hematopoiesis. NISHA Flow - NISHA Cyto - 46,XY FISH - negative INFECTIOUS: Covid swab (03/29/20): positive BCx (03/24/20): NGTD BCx (03/21/20): NGTD Covid swab (03/07/20): positive Bronch (03/06/20): COVID +, otherwise negative. Path reactive alveolar parenchyma with mild chronic inflammation RADIOLOGY: CXR (03/20/20): Bilateral interstitial and airspace opacities are mildly improved. No new areas of airspace consolidation observed. There is suggestion of small bilateral pleural effusions with adjacent atelectasis or airspace disease. Venous Duplex (03/03/20): Negative for DVT CT Chest (03/02/30): Altered distribution of prominent geographic GGO within upper and lower lung zones bilaterally. Re-demonstration of nonocclusive thrombus within left brachiocephalic vein which extends to the superior vena cava. ECHO (03/02/20): ~LVEF 68% ASSESSMENT/PLAN: JALIL LUIS is a 49 year old male, who is Day +167 (Day 0 is 10/20/19) of an autologous peripheral blood stem cell transplant with a 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 SYSTEMS: Marginal Zone Lymphoma in CR2 pre-transplant Schema: 5A Prep: BEAM, Cell count 10.4 x 10^6 CD34+cells/kg in 5 bags; day [address] A/P -- BMBx completed (03/03) -Transfusion threshold: Hgb > 7; Plt > 10; CMV +, transfusion pre meds: none needed -Engraftment: ANC day +9 (10/29/19); plt engraftment 11/03/19 (day +14) OI prophylaxis: Bacterial:??Pen VK, will need for life as he is asplenic PJP:??Bactrim DS MWF Viral: Valtrex 500mg BID COVID -tested positive early January, asymptomatic at that time -Covid from bronch 03/07 and PROVISIONING ANALYST swab 03/07 both positive -received remdesivir 03/08 - 03/12 & convalescent plasma 03/10 -following discussion with pulm pt will likely benefit from longer steroid taper than outlined in [facility]+ protocol -steroids switched to pred 03/18 then tapered to 60mg 03/20; >>start slow taper over 2-3 weeks on 03/23 >>taper by 10mg every 4 days>>04/03 20 mg daily, next taper 04/07. After taper complete, plan to remain on 5mg daily until able to do stim test. -continue altuberol and symbicort and O2 monitoring -stopped vit C and zinc per MATH+ protocol -continue PO thiamine until discharge Hypoxia -overall stable at this time; continues on 50% CPAP alternating with HFNC -exercise tolerance seems to be slowly improving -started long acting beta agonist/corticosteroid (symbicort) 03/22 -2 COVID, see above -intubated 03/06/20 -03/08/20 -Bronch'd 03/06/20>>COVID + otherwise unremarkable Arthralgias--Resolved -? 09/05 known COVID vs steroid taper -Celebrex 100mg BID Right IJ venous clot 09/27/19 -Lovenox 120 mg Q12H while inpt -previously on Eliquis 5 mg BID, will resume at discharge Pertinent History: Anxiety/Depression: Lexapro 10 mg daily Restless Leg Syndrome: Requip 0.25 mg QHS Headaches: tramadol 50 mg q8h. LP completed 03/01. Results negative for meningitis. Plan to wean this in outpt setting Discharge Planning: Patients preferred contact information: cell Caregiver: sister, girlfriend Preferred D/C [facility]acy: [facility] Intended lodging: home Referring provider: Cesar Tavares Disposition: Remain on 7N. Plan to have bed available and be discahrged to LTAC tomorrow Vane Romero APRN, TALENT ACQUISITION OPERATIONS MANAGER-C Bone Marrow Transplant [facility] I independently interviewed and examined??Jalil Luis??with the BMT advanced practice provider. I reviewed my findings and assessment with the advanced practice provider and the patient. I reviewed the below note. Please see note for full detail. ?? Day 167 Continue to wean O2 VSS ?? Net +2L ?? No new labs ?? Note IgG low -??supplemented with??IVIG??on 04/03 ?? Right ear fullness, on PCN VK and steroids No acute concerns Trial anti-histamine ?? OI: PCN VK, Bactrim, VCV Pred 20mg QD - weaned 04/03, weaning by 10mg q4d Will need to stay on 5mg until able to see us outpatient and do stim test ?? Other meds: Change Lovenox to Apixaban Ultram and celebrex are scheduled - change ultram to BID D/c pantoprazole D/c thiamine ?? Dispo: Should have room available at [facility] today No need for routine labs Need contact info for [facility] for outpatient team to be able to communicate ?? RTC to IgG along with basic labs and inflamm markers Will need CoViD swab upon return along with isolation until swab negative ? Hillary Apple MD MSc wreath and garland maker hand Interim Director, Division of Hematology/Oncology [facility] * Rashida Kristina Nuñez Bharti, PT - 04/04/2020 1:36 PM CDT [facility] Physical Medicine and Rehabilitation PhysicalTherapy Progress Note Patient: Jalil Luis Med Record Number: [id number] Date of : 1970 Age: [age] year old [place] with OT 2/2 level of skilled assist needed for O2 management Patient is COVID-19 positive. PPE donned by therapist throughout session - disposable gown, gloves, N95 mask, eye protection, faceshield, hair net, alva cover and shoe covers. Discharge Recommendation: Patient will benefit from multidisciplinary inpatient therapies. ([facility]) Subjective: I'm doing okay. Pt agreeable to PT session. Patient currently using no assistive device. Mental Status: A&O X3; 100% Command follow; good safety awareness and insight into deficits At start of therapy session, patient found seated in chair. Pain: Patient has 0 out of 10 pain reported. Weight Bearing Status: BLE WBAT Mobility: Rolling: not tested Supine to Sit:not tested Sit to Supine: Independent Sit to Stand:Independent Bed to Chair: Independent Gait: Device:none Assistance: Stand By Assist/Independent Distance: 50 ft, continuous Deviations: step through gait pattern with increased ANALILIA and increased lateral sway, and decreased step length; no LOB Balance: Static Sitting: good Dynamic sitting: good Static Standing: good Dynamic Standing: good minus Stairs : NT Vitals: (*Assess the 3 levels of oxygen saturations both for room air and 02 unless rest on room air is 88% or less). Rest BP: HR: 115 123 Sp02 Sp02 99% 98% Room Air L O2 BiPAP on CPAP mode 50% FiO2 Ex/Gait/ Activity Without 02 BP: HR: Sp02 Room Air Ex/Gait/ Activity With 02 BP: HR: 152 146 146 143 145 146 147 153 (PEAK) 133 128 Sp02 84%--walking for 45 seconds (continuous) 89%--standing to recover (2 mins) 90%--4 mins standing post walking 91%--5 mins 92%--6 mins 94%--7 mins--leg started to quiver 92%--8 mins standing 82% (PEAK) sit > supine transfer 88% after 1 minutes of rest 94% after 2 minutes of rest 97% after 3 minutes of rest L O2 SAME Post Activity BP: HR: 125 Sp02 Sp02 98% L O2 Room Air SAME Observations: 45 seconds of continuous walking and 8 minutes of continuous standing. RN made aware.Pt reports SOB after ambulation in room. Activity Tolerance: Patient's activity tolerance: fair Treatment/therapeutic Exercise: Pt this date performs sit > stand transfer from chair and ambulates for 45 seconds in room continuously before needing to take standing rest break. Pt then stands at EOB for 8 continuous minutes with focus on increased SPO2 and decreasing HR with pt educated on proper breathing techniques. Pt demonstrates increased endurance with standing this date by 2 minutes compared to previous therapy session with SPO2 improving in decreased amount of time compared to previous therapy session. Pt then performs seated rest break with focus on PLB and good upright posture. Pt then transfers back into bed. Overall pt demonstrates improved endurance with functional mobility, ambulation, and standing compared to previous therapy session. Patient/Family Teaching: Exercise, Gait and Mobility Patient demonstrated Good understanding of instructions given. Short Term Goals: Goal Formation?With patient Patient will perform bed mobility:??Independent??(MET 03/15) Patient will transfer sit to/from stand:??Independent (MET 03/15) Patient will transfer bed to/from chair:??Independent (updated 03/15) Patient will ambulate??75??feet with Stand By Assist??and appropriate AD (updated 9/1/20) Patient will ascend/descend??10??steps: Stand By Assist??and hand rail assist?? Patient will perform home exercise program independently ?? Family Nurse Practitioner Goal(s): Patient to be independent/baseline with functional mobility and self care and be able to safely discharge to prior level of care ?? Update Treatment Plan:??Goals reviewed and updated this date. Continue with current PT plan of careto improve safety and functional mobility, especially focusing on??weaning O2 and progressing mobility. If patient is discharged from the facility, this note serves as a discharge note if further physical therapy visits did not occur. Following therapy session, patient left in bed, with call light within reach and with RN aware. Kristina Field, PT 04/04/2020 * Inga Cortez, OT - 04/04/2020 1:28 PM CDT [facility] Physical Medicine and Rehabilitation Occupational Therapy Progress Note Patient: Jalil Luis [facility] Record Number: [id number] Date of : 1970 Age: [age] year old Co-[place] w/PT Patient is COVID-19 positive. PPE donned by therapist throughout session - disposable gown, gloves, N95 mask, eye protection, faceshield, hair net, alva cover and shoe covers. Discharge Recommendation: Patient will benefit from multidisciplinary inpatient therapies (LTAC forhigh 02 needs) Precautions: FALLS SAFETY *COVID-19 +* Subjective: I might leave today! At start of therapy session, patient found in patient bedside chair and with no alarm. Pain: Patient has 0 out of 10 pain in body. Nurse notified. Activities of Daily Living Feeding:NT Grooming/Bathing: not tested Upper Extremity Dressing: not tested Lower Extremity Dressing: Independent --socks Toileting/Transfers: not tested --had already Mobility: Assist device: none Supine to/from Sit:Independent Sit to/from Stand: Independent Bed to/from Chair: Independent Functional Mobility: From bed to door with Independent--desatted. See vitals. Splint Issued/Checked: none Splint Check Completed: N/A Balance: Static Sitting: good Dynamic Sitting: good Static Standing: good Dynamic Standing: good Vitals: (*Assess the 3 levels of oxygen saturations both for room air and 02 unless rest on room air is 88% or less). Rest BP: ?? HR: 115 ?? 123 Sp02 ?? Sp02 99% ?? 98% Room Air ?? L O2 ?? BiPAP on CPAP mode 50% FiO2 Ex/Gait/ Activity Without 02 BP: ?? HR: ?? Sp02 ?? Room Air ?? Ex/Gait/ Activity With 02 BP: ?? HR: 152 146 ? 146 ?? 143 145 146 ?? 147 ? 153 (PEAK) 133 ?? 128 Sp02 84%--walking for 45 seconds (continuous) 89%--standing to recover (2 mins) 90%--4 mins standing post walking 91%--5 mins 92%--6 mins 94%--7 mins--leg started to quiver 92%--8 mins standing ? 82% (PEAK) sit > supine transfer 88% after 1 minutes of rest 94% after 2 minutes of rest 97% after 3 minutes of rest L O2 SAME Post Activity BP: ?? HR: 125 Sp02 ?? Sp02 98% L O2 ?? Room Air SAME Observations: 45 seconds of continuous walking and 8 minutes of continuous standing. RN made aware.Pt reports SOB after ambulation in room. ?? Activity tolerance: poor plus Cognitive/Perceptual: A&Ox4; always cooperative and motivated to participate. Treatment/Therapeutic Exercise: Treatment session this date focused on ADL training Endurance training Bed mobility Energy conservation Safety awareness HEP training Patient/Family Teaching: Exercise, Gait, Mobility and Self care Equipment Issued: none Update Treatment Plan/Goals : Pt continues to benefit from skilled OT to improve independence with activities of daily living, increase strength, endurance, range of motion and decrease pain. Short Term Goals: Patient will perform grooming?Standing at sink and With modified independence Patient will perform lower extremity dressing?With modified independence Patient will perform toileting?With modified independence ?? Residential Goal:Patient to discharge to appropriate next level of inpatient care If patient is discharged from the facility, this note serves as a discharge note if further occupational therapy visits did not occur. Following therapy session, patient left in bed, with call light within reach, with Izzy RILEY aware and with RN/CP rehab cues written on white board. Inga Cortez OT * Jocelin Griggs RD/DAE - 04/04/2020 1:26 PM CDT Clinical Nutrition Comments: Pt seen for f/u. COVID positive. Intakes remain adequate, consuming 75-100% of meals. Plans for d/c to SNF soon. No further interventions warranted at this time. RD will continue to monitor. Diet order accuracy Current diet order: Regular Nutrition recommendation: agree with current nutrition order P.O.Intake for the past 48 hrs:% Meal Taken Av % Min: 0 % Max: 100 % Height: 5' 7.01 (170.2 cm) Weight: 250 lb 10.6 oz (113.7 kg) Body mass index is 39.25 kg/m??.BMI Range: Morbidly Obese Class 3 Laboratory values reviewed. Medications noted. No acute nutrition issues identified at this time. Recommendations: Continue current diet Monitor nutrition per nutrition guidelines. Jocelin Griggs MA, RD, [facility] [employer]/ Pager: [phone] * Izzy Garcia RN - 04/04/2020 12:35 PM CDT Being discharged to [facility] facility to manage O2 weaning. Discharged on O2. Will continue PT/OT for increase strength and endurance. Continues isolation for + covid. Remain at risk for fall.Sent home with information on smoking cessation * Kristina Field, PT - 04/03/2020 4:38 PM CDT [facility] Physical Medicine and Rehabilitation PhysicalTherapy Progress Note Patient: Jalil Luis Med Record Number: [id number] Date of : 1970 Age: [age] year old [place] with OT 2/2 level of skilled assist needed Patient is COVID-19 positive. PPE donned by therapist throughout session - disposable gown, gloves, N95 mask, eye protection, faceshield, hair net, alva cover and shoe covers. Discharge Recommendation: Patient will benefit from multidisciplinary inpatient therapies. (LTAC) Subjective: i'm ready for you! Pt pleasant and motivated to participate in therapy. Patient currently using no assistive device. Mental Status: Alert and oriented through conversation; 100% command follow; good safety awareness and insight into deficits At start of therapy session, patient found in bed and with no alarm. Pain: Patient has 0 out of 10 pain reported. Weight Bearing Status: BLE WBAT Mobility: Rolling: not tested Supine to Sit:Independent Sit to Supine: Independent Sit to Stand:Independent Bed to Chair: not tested; pt declines to sit in chair this date Gait: Device:none Assistance: Stand By Assist Distance: 20 ft X2 with seated rest break Deviations: decreased armen; increased ANALILIA and increased lateral sway, no LOB Balance: Static Sitting: good Dynamic sitting: good Static Standing: good minus Dynamic Standing: good minus Stairs : NT Vitals: (*Assess the 3 levels of oxygen saturations both for room air and 02 unless rest on room air is 88% or less). Vitals: Rest BP: 105/85 HR: 119 SpO2 ?? SpO2 94% Room Air ?? L 02 ?? 50% BIPAP ON CPAP Ex/Gait/ Activity Without 02 BP: ?? HR: ?? SpO2 ?? Room Air ?? Ex/Gait/ Activity With 02 BP: ?? HR: ? 139 138 137 ?? 160 (PEAK)--esvin care 151 139 ?? 167 167 166 ?? 167 ?? 170 ? 156 ?? 152 ?? 144 137 138 130 SpO2 95%--on toilet 87%--PEAK LOW 89% 93% 94% 93%--5 mins on toilet 86% (PEAK) ? 89% 92%--3 mins post esvin care 82% 88% 89%--2 mins standing 90%--4 mins standing 90%--6 mins standing w/ mini squats 81%--return to bed 85%--1 min 89%--2 mins 92%--2 mins 93%--2.5 mins 95%--4 mins 94%--5 mins ? L 02 SAME Post Activity BP: 125/94 (MAP 105) HR: 132 126 SpO2 ?? SpO2 95% 96% L 02 ?? Room Air SAME Observations: Able to stand for 6 consecutive minutes today. Desats but able to recover w/ extra time and seated breaks. Activity Tolerance: Patient's activity tolerance: fair - pt this date demonstrates increased activity tolerance and endurance compared to previous therapy session. Treatment/therapeutic Exercise: pt performs supine <>sit transfer and sit <>stand transfer with independence and no LOB. Pt then ambulates to bathroom with SBA with pt reports of SOB. Pt then performs self care in bathroom with SBA/good minus static/dynamic standing balance and no LOB with O2 decreased to 86%. Pt then ambulates to EOB and performs static standing balance tolerance during recovery time progressed to dynamic balance at EOB with SPO2 at 94% after 5 minutes and HR increased to 170. Pt then sits and performs bed mobility to supine. Overall, pt demonstrates improved endurance and decreased FiO2 needs with functional mobility this date. Patient/Family Teaching: Gait and Mobility Patient demonstrated Good understanding of instructions given. Short Term Goals: Goal Formation?With patient Patient will perform bed mobility:??Independent??(MET 03/15) Patient will transfer sit to/from stand:??Independent (MET 03/15) Patient will transfer bed to/from chair:??Independent (updated 03/15) Patient will ambulate??50??feet with Stand By Assist??and appropriate AD Patient will ascend/descend??10??steps: Stand By Assist??and hand rail assist?? Patient will perform home exercise program independently ?? Residential Goal(s): Patient to be independent/baseline with functional mobility and self care and be able to safely discharge to prior level of care ?? Update Treatment Plan: Continue with current PT plan of care to improve safety and functional mobility, especially focusing on weaning O2, progressing mobility. If patient is discharged from the facility, this note serves as a discharge note if further physical therapy visits did not occur. Following therapy session, patient left in bed, with call light within reach and with RN in room. Kristina Field, PT 04/03/2020 * Inga Cortez, OT - 04/03/2020 3:00 PM CDT [facility] Physical Medicine and Rehabilitation Occupational Therapy Progress Note Patient: Jalil Luis Med Record Number: [id number] Date of : 1970 Age: [age] year old Co-Tx w/ PT Patient is COVID-19 positive. PPE donned by therapist throughout session - disposable gown, gloves, N95 mask, eye protection, faceshield, hair net, alva cover and shoe covers. Discharge Recommendation: Patient will benefit from multidisciplinary inpatient therapies (LTAC 2/2high 02 needs) Precautions: FALLS SAFETY *COVID-19 +* Subjective: I feel pretty good! I made it here (to the [facility]! At start of therapy session, patient found in bed and with no alarm. Pain: Patient has 0 out of 10 pain in body. Nurse notified. Activities of Daily Living Feeding:NT Grooming/Bathing: Independent --only to manage BIPAP Upper Extremity Dressing: not tested Lower Extremity Dressing: Independent --desats w/ socks in bed Toileting/Transfers: Independent --esvin care and transfer Mobility: Assist device: none Supine to/from Sit:Independent Sit to/from Stand: Independent Bed to/from Chair: Independent Functional Mobility: From bathroom to bed with Independent--only needs assistance for Splint Issued/Checked: none Splint Check Completed: N/A Balance: Static Sitting: good Dynamic Sitting: good Static Standing: good Dynamic Standing: good Vitals: Rest BP: 105/85 HR: 119 SpO2 SpO2 94% Room Air L 02 50% BIPAP ON CPAP Ex/Gait/ Activity Without 02 BP: HR: SpO2 Room Air Ex/Gait/ Activity With 02 BP: HR: 139 138 137 160 (PEAK)--esvin care 151 139 167 167 166 167 170 156 152 144 137 138 130 SpO2 95%--on toilet 87%--PEAK LOW 89% 93% 94% 93%--5 mins on toilet 86% (PEAK) 89% 92%--3 mins post esvin care 82% 88% 89%--2 mins standing 90%--4 mins standing 90%--6 mins standing w/ mini squats 81%--return to bed 85%--1 min 89%--2 mins 92%--2 mins 93%--2.5 mins 95%--4 mins 94%--5 mins L 02 SAME Post Activity BP: 125/94 (MAP 105) HR: 132 126 SpO2 SpO2 95% 96% L 02 Room Air SAME Observations: Able to stand for 6 consecutive minutes today. Desats but able to recover w/ extra time and seated breaks. Activity tolerance: poor plus to fair minus --recovery time is shortening, but pt still needs multiple rest breaks Cognitive/Perceptual: A&Ox4; pt remains pleasant, cooperative, and always motivated. Follows 100% of commands. Treatment/Therapeutic Exercise: Treatment session this date focused on ADL training Functional transfer training Endurance training Bed mobility Energy conservation Safety awareness HEP training Patient/Family Teaching: Exercise, Gait, Mobility and Self care Equipment Issued: none Update Treatment Plan/Goals : Pt continues to benefit from skilled OT to improve independence with activities of daily living, increase strength, endurance, range of motion and decrease pain. Short Term Goals: Patient will perform grooming?Standing at sink and With modified independence Patient will perform lower extremity dressing?With modified independence Patient will perform toileting?With modified independence Residential Goal:Patient to discharge to appropriate next level of inpatient care If patient is discharged from the facility, this note serves as a discharge note if further occupational therapy visits did not occur. Following therapy session, patient left in bed, with call light within reach, with Izzy RILEY aware and with RN/CP rehab cues written on white board. Inga Cortez OT * Alecia Melissa RN - 04/03/2020 10:02 AM CDT CM checked in with Louise from [facility]. They still don't have a bed available for pt. Will continue to follow. Update 1344: CM notified by Louise with [facility] they will have a bed for patient tomorrow at [facility]. Team updated, will continue to follow. * Rafaela Sood, JOSE DAVID-SEWING DEMONSTRATOR - 04/03/2020 7:09 AM CDT Autologous Hematopoietic Stem Cell Daily Note: PATIENT IDENTIFIERS: JALIL LUIS is a 49 year old male who is Day +166 (Day 0 is 10/20/19) of an autologous peripheral blood stem cell transplant with a 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 INTERVAL HISTORY: Patients 02 requirements have decreased over the weekend Feels each day he is improving Appetite stable Denies N/V/D and abdominal pain Gets up during the day Placement at [facility] approved, bed in neg pressure room should be available tomorrow ROS: A comprehensive review of systems was negative except for: as noted above MEDICATIONS FOR CURRENT ENCOUNTER: SCHEDULED MEDICATIONS: 0.9% NaCl injection 3 mL, Intracatheter, q8h albuterol HFA (PROVENTIL;VENTOLIN;PROAIR) 108 (90 Base) MCG/ACT inhaler 2 puff, Inhalation, q4h artificial tears ophthalmic ointment, Each Eye, q8h budesonide-formoterol (SYMBICORT) 80-4.5 MCG/ACT inhaler 2 puff, Inhalation, BID celecoxib (CeleBREX) capsule 100 mg, Oral, BID enoxaparin (LOVENOX) injection 120 mg, Subcutaneous, q12h escitalopram (LEXAPRO) tablet 10 mg, Oral, QDAY pantoprazole EC (PROTONIX) tablet 40 mg, Oral, QDAY penicillin V potassium (VEETIDS) solution 250 mg, Oral, q12h predniSONE (DELTASONE) tablet 20 mg, Oral, QDAY WITH BREAKFAST rOPINIRole (REQUIP) tablet 0.25 mg, Oral, AT BEDTIME sulfamethoxazole-trimethoprim (BACTRIM DS; SEPTRA DS) 800-160 MG tablet 1 tablet, Oral, MON, WED AND FRI thiamine (VITAMIN B-1) tablet 200 mg, Oral, q12h traMADol (ULTRAM) tablet 50 mg, Oral, q8h valACYclovir (VALTREX) tablet 500 mg, Oral, BID ?? vitamin D3-cholecalciferol (CHOLECALCIFEROL) 25 MCG (1000 UNITS) tablet 2,000 Units, Oral, QDAY ?? CONTINUOUS MEDICATIONS: PRN MEDICATIONS: 0.9% NaCl injection 1-10 mL, Intracatheter, PRN acetaminophen (TYLENOL) tablet 325 mg, Oral, q4h PRN magnesium sulfate 2 g in 50 mL bolus, Intravenous, PRN ondansetron (disintegrating) (ZOFRAN ODT) tablet 4 mg, Oral, q8h PRN ondansetron (ZOFRAN) injection 4 mg, Intravenous, q8h PRN oxyCODONE (immediate release) (ROXICODONE) tablet 5 mg, Oral, q4h PRN prochlorperazine (COMPAZINE) injection 10 mg, Intravenous, q6h PRN prochlorperazine (COMPAZINE) tablet 5 mg, Oral, q8h PRN ?? saline nasal spray (OCEAN; BABY AYR) 0.65 % nasal spray 2 spray, Each Nostril, q2h PRN VITALS: Vitals: 04/02/20 2341 04/03/20 0024 04/03/20 0411 04/03/20 0502 BP: 115/89 119/91 Pulse: 97 99 97 96 Resp: 14 12 Temp: 97.7 ??F 97.5 ??F SpO2: 98% 98% 98% 99% Weight: Height: Wt Readings from Last 3 Encounters: 03/30/20 113.7 kg (250 lb 10.6 oz) 02/26/20 120.2 kg (265 lb) 11/15/19 123.4 kg (272 lb) Date 04/02/20 07 - 04/03/20 0659 04/03/20 07 - 04/04/20 0659 Shift 3941-3338 5105-6951 24 Hour Total 5010-1261 0615-1118 24 Hour Total INTAKE P.O. 1200 0 1200 Shift Total(mL/kg) 1200(10.6) 0(0) 1200(10.6) OUTPUT Urine(mL/kg/hr) 7809(5.7) 500(0.4) 8309(3) Shift Total(mL/kg) 7809(68.7) 500(4.4) 8309(73.1) [facility]4144 -190 -2388 Weight (kg) 113.7 113.7 113.7 113.7 113.7 113.7 PHYSICAL EXAM: General appearance - alert, well appearing, and in no distress Mental status - alert, oriented to person, place, and time, normal mood, behavior, speech, dress, motor activity, and thought processes Chest - clear to auscultation, no wheezes, rales or rhonchi, symmetric air entry Heart - normal rate, regular rhythm, normal S1, S2, no murmurs, rubs, clicks or gallops Abdomen - soft, nontender, nondistended, no masses or organomegaly Musculoskeletal - no joint tenderness, deformity or swelling Extremities - peripheral pulses normal, no pedal edema, no clubbing or cyanosis Skin - normal coloration and turgor, no rashes, no suspicious skin lesions noted LABS: Recent Labs Component Name 03/31/20 0020 03/29/20 0024 03/27/20 0607 03/18/20 1267 WBC 12.1* 12.7* 12.5* - 16.8* RBC 3.44* 3.50* 3.27* - 3.42* HGB 10.2* 10.3* 9.7* - 10.0* HCT 30.7* 31.4* 29.8* - 30.1* MCV 89.2 89.7 91.1 - 88.0 MCH 29.7 29.4 29.7 - 29.2 MCHC 33.2 32.8 32.6 - 33.2 PLTCOUNT 238 237 211 - 188 RDWSD 75.8* 76.1* 78.3* - 62.7* RDW 24.3* 24.5* 24.5* - 21.2* MPV 12.5 12.3 11.1 - - NRBCABS 0.79* 1.08* 1.36* - 1.83* NRBCAUTOPCT 6.5* 8.5* 10.9* - 10.9* NEUTPCT 76.3* 81.1* 76.5* - - LYMPHSPCT 15.0* 10.1* 9.9* - - MONOPCT 5.3 6.1 7.9 - - EOSPCT 1.1 0.5 1.8 - - BASOPCT 0.3 0.2 0.5 - - IMMGRANSPCT 2.0* 2.0* 3.4* - - NEUTABS 9.2* 10.3* 9.6* - 15.96* LYMPHS 1.8 1.3 1.2 - 0.17* MONO 0.64 0.78* 0.99* - 0.50 EOS 0.13 0.06 0.23 - - BASO 0.04 0.02 0.06 - - TOTCELLCNT - - - - 100 - = values in this interval not displayed. Recent Labs Component Name 03/31/20 0040 03/29/20 0024 03/27/20 0607 BUN 21 19 21 CREATININE 0.9 0.8 0.9 NA 143 141 143 POTASSIUM 4.2 4.4 3.7 CL 102 99 104 CO2 28 30* 27 CALCIUM 8.6 8.6 8.6 PROT 5.6* 5.8* 5.1* ALB 2.5* 2.6* 2.5* TBILI 0.2 0.2 0.2 ALKPHOS 103 103 99 ALT 56* 74* 73* AST 22 26 27 ANIONGAP 17 16 16 BCR 23 24* 23 OSMOLALITY 300 295 299 AGRATIO 0.8* 0.8* 1.0* EGFR >60 >60 >60 Recent Labs Component Name 03/31/20 0040 03/29/20 0024 03/27/20 0607 MAGNESIUM 1.9 2.0 1.7 Recent Labs Component Name 03/31/20 0040 03/29/20 0024 03/27/20 0607 PHOS 4.0 4.4 4.8* Recent Labs Component Name 03/31/20 0000 03/29/20 0024 03/27/20 0607 CRP 2.9* 3.1* 2.1* LDH Total Date Value Ref Range Status 03/31/2020 450 (H) 125 - 243 Units/L Final 03/29/2020 428 (H) 125 - 243 Units/L Final 03/27/2020 358 (H) 125 - 243 Units/L Final Recent Labs Component Name 03/31/20 0000 03/29/20 0024 03/27/20 0607 FERRITIN 518* 626* 651* Recent Labs Component Name 03/31/20 0020 03/29/20 0024 03/27/20 0607 ESR 77* 74* 44* Recurring Labs: Ig03/13/20 162, IVIG given. 03/22/20 - 509, 04/03- 340 IVIG given CD4: 02/27/20-68 PATHOLOGY: BMBX (03/03/20): Path - Normocellular marrow with maturing trilineage hematopoiesis. NISHA Flow - NISHA Cyto - 46,XY FISH - negative INFECTIOUS: Covid swab (03/29/20): positive BCx (03/24/20): NGTD BCx (03/21/20): NGTD Covid swab (03/07/20): positive Bronch (03/06/20): COVID +, otherwise negative. Path reactive alveolar parenchyma with mild chronic inflammation RADIOLOGY: CXR (03/20/20): Bilateral interstitial and airspace opacities are mildly improved. No new areas of airspace consolidation observed. There is suggestion of small bilateral pleural effusions with adjacent atelectasis or airspace disease. Venous Duplex (03/03/20): Negative for DVT CT Chest (03/02/30): Altered distribution of prominent geographic GGO within upper and lower lung zones bilaterally. Re-demonstration of nonocclusive thrombus within left brachiocephalic vein which extends to the superior vena cava. ECHO (03/02/20): ~LVEF 68% ASSESSMENT/PLAN: JALIL LUIS is a 49 year old male, who is Day +166 (Day 0 is 10/20/19) of an autologous peripheral blood stem cell transplant with a 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 SYSTEMS: Marginal Zone Lymphoma in CR2 pre-transplant Schema: 5A Prep: BEAM, Cell count 10.4 x 10^6 CD34+cells/kg in 5 bags; day [address] A/P -- BMBx completed (03/03) -Transfusion threshold: Hgb > 7; Plt > 10; CMV +, transfusion pre meds: none needed -Engraftment: ANC day +9 (10/29/19); plt engraftment 11/03/19 (day +14) -given overall stability will check CBCw/Diff MWF OI prophylaxis: Bacterial:??Pen VK PJP:??Bactrim DS MWF Viral: Valtrex 500mg BID COVID -tested positive early January, asymptomatic at that time -Covid from bronch 03/07 and PROVISIONING ANALYST swab 03/07 both positive -received remdesivir 03/08 - 03/12 & convalescent plasma 03/10 -given overall stability will check labs every MWF at this point -following discussion with pulm pt will likely benefit from longer steroid taper than outlined in MATH+ protocol -steroids switched to pred 03/18 then tapered to 60mg 03/20; >>start slow taper over 2-3 weeks on 03/23 >>taper by 10mg every 4 days>>04/03 20 mg daily, next taper 04/07. After taper complete, plan to remain on 5mg daily until able to do stim test. -continue altuberol and symbicort and O2 monitoring -stopped vit C and zinc per MATH+ protocol -continue PO thiamine until discharge Hypoxia -overall stable at this time; continues on 50% CPAP alternating with HFNC -exercise tolerance seems to be slowly improving -started long acting beta agonist/corticosteroid (symbicort) 03/22 -09/05 COVID, see above -intubated 03/06/20 -03/08/20 -Bronch'd 03/06/20>>COVID + otherwise unremarkable -likely 2-3 weeks before significant improvement and would likely benefit from LTACH while taperingsteroids and weaning oxygen Arthralgias--Resolved -new onset bilateral knee pain without erythema or swelling -unlikely DVT given current ACT -? 2/2 known COVID vs steroid taper -Celebrex 100mg BID Folliculitis -continues to improve -keep skin clean and dry, will follow closely Right IJ venous clot 09/27/19 -Lovenox 120 mg Q12H while inpt -previously on Eliquis 5 mg BID -when discharged to LTAC given overall stability reasonable to resume Eliquis at that time Pertinent History: Persistent Fevers: completed 7D course of cem and vanco on 03/08/20 Anxiety/Depression: Lexapro 10 mg daily Restless Leg Syndrome: Requip 0.25 mg QHS Headaches: tramadol 50 mg q8h. LP completed 03/01. Results negative for meningitis Discharge Planning: Patients preferred contact information: cell Caregiver: sister, girlfriend Preferred D/C Pharmacy: [facility] Intended lodging: home Referring provider: Cesar Tavares Disposition: Remain inpatient at [facility] for O2 support, placement in LTAC approved although waiting for negative pressure room to become available Eli Sood APRN, TALENT ACQUISITION OPERATIONS MANAGER-C Bone Marrow Transplant [facility] I independently interviewed and examined Jalil Luis with the BMT advanced practice provider. I reviewed my findings and assessment with the advanced practice provider and the patient. I reviewed the below note. Please see note for full detail. Day 166 Continue to wean O2 VSS UOP 8L, ?typo, not accurate Labs w/o concerns Inflamm markers are downtrending/normalizing Note IgG low - would supplement with IVIG OI: PCN VK, Bactrim, VCV Pred 20mg QD - weaned 04/03, weaning by 10mg q4d Will need to stay on 5mg until able to see us outpatient and do stim test Dispo: Waiting on neg pressure room Hillary Apple MD MSc wreath and garland maker hand Interim Director, Division of Hematology/Oncology [facility] * Darcy Lutz RN - 04/02/2020 11:51 PM CDT Problem: Fall Risk Goal: Fall risk and fall related injury risk are minimized Outcome: Ongoing * Darcy Lutz RN - 04/02/2020 11:51 PM CDT Problem: Fall Risk Goal: Fall risk and fall related injury risk are minimized 04/02/20202350 by Darcy Lutz RN Outcome: Ongoing 04/02/20202350 by Darcy Lutz RN Outcome: Ongoing * Shalini Segal MD - 04/02/2020 6:58 AM CDT Autologous Hematopoietic Stem Cell Daily Note: PATIENT IDENTIFIERS: JALIL LUIS is a 49 year old male who is Day +165 (Day 0 is 10/20/19) of an autologous peripheral blood stem cell transplant with a 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 INTERVAL HISTORY: Resp status continues to be stable alternating between CPAP and HFNC VSS Placement at LTAC approved, waiting for bed in neg pressure room to become available ROS: A comprehensive review of systems was negative except for: as noted above MEDICATIONS FOR CURRENT ENCOUNTER: SCHEDULED MEDICATIONS: 0.9% NaCl injection 3 mL, Intracatheter, q8h albuterol HFA (PROVENTIL;VENTOLIN;PROAIR) 108 (90 Base) MCG/ACT inhaler 2 puff, Inhalation, q4h artificial tears ophthalmic ointment, Each Eye, q8h budesonide-formoterol (SYMBICORT) 80-4.5 MCG/ACT inhaler 2 puff, Inhalation, BID celecoxib (CeleBREX) capsule 100 mg, Oral, BID enoxaparin (LOVENOX) injection 120 mg, Subcutaneous, q12h escitalopram (LEXAPRO) tablet 10 mg, Oral, QDAY pantoprazole EC (PROTONIX) tablet 40 mg, Oral, QDAY penicillin V potassium (VEETIDS) solution 250 mg, Oral, q12h predniSONE (DELTASONE) tablet 30 mg, Oral, QDAY WITH BREAKFAST rOPINIRole (REQUIP) tablet 0.25 mg, Oral, AT BEDTIME sulfamethoxazole-trimethoprim (BACTRIM DS; SEPTRA DS) 800-160 MG tablet 1 tablet, Oral, MON, WED AND FRI thiamine (VITAMIN B-1) tablet 200 mg, Oral, q12h traMADol (ULTRAM) tablet 50 mg, Oral, q8h valACYclovir (VALTREX) tablet 500 mg, Oral, BID ?? vitamin D3-cholecalciferol (CHOLECALCIFEROL) 25 MCG (1000 UNITS) tablet 2,000 Units, Oral, QDAY ?? CONTINUOUS MEDICATIONS: PRN MEDICATIONS: 0.9% NaCl injection 1-10 mL, Intracatheter, PRN acetaminophen (TYLENOL) tablet 325 mg, Oral, q4h PRN magnesium sulfate 2 g in 50 mL bolus, Intravenous, PRN ondansetron (disintegrating) (ZOFRAN ODT) tablet 4 mg, Oral, q8h PRN ondansetron (ZOFRAN) injection 4 mg, Intravenous, q8h PRN oxyCODONE (immediate release) (ROXICODONE) tablet 5 mg, Oral, q4h PRN prochlorperazine (COMPAZINE) injection 10 mg, Intravenous, q6h PRN prochlorperazine (COMPAZINE) tablet 5 mg, Oral, q8h PRN ?? saline nasal spray (OCEAN; BABY AYR) 0.65 % nasal spray 2 spray, Each Nostril, q2h PRN VITALS: Vitals: 04/01/20 2125 04/02/20 0010 04/02/20 0437 04/02/20 0514 BP: 119/88 129/92 Pulse: 109 101 89 90 Resp: 24 19 Temp: 98.1 ??F 98.2 ??F SpO2: 99% 98% 100% 100% Weight: Height: Wt Readings from Last 3 Encounters: 03/30/20 113.7 kg (250 lb 10.6 oz) 02/26/20 120.2 kg (265 lb) 11/15/19 123.4 kg (272 lb) Date 04/01/20 07 - 04/02/20 0659 04/02/20699 - 04/03/20 0659 Shift 1404-9176 3931-5376 24 Hour Total 3714-9996 7680-4402 24 Hour Total INTAKE Shift Total(mL/kg) OUTPUT Urine(mL/kg/hr) 100 100 Shift Total(mL/kg) 100(0.9) 100(0.9) NET -100 -100 Weight (kg) 113.7 113.7 113.7 113.7 113.7 113.7 PHYSICAL EXAM: General appearance - alert, well appearing, in no distress, and acyanotic in no respiratory distress Mental status - alert, oriented to person, place, and time, normal mood, behavior, speech, dress, motor activity, and thought processes, affect appropriate to mood Mouth - mucous membranes moist, pharynx normal without lesions Chest - clear to auscultation, no wheezes, rales or rhonchi, symmetric air entry, no tachypnea, retractions or cyanosis Heart - normal rate and regular rhythm, no murmurs noted Abdomen - soft, nontender, nondistended, no masses or organomegaly, bowel sounds normal Neurological - alert, oriented, normal speech, no focal findings or movement disorder noted Musculoskeletal - no joint tenderness, deformity or swelling, no muscular tenderness noted Extremities - peripheral pulses normal, no pedal edema, no clubbing or cyanosis Skin - normal coloration and turgor, fading foliculitis rash to chest, no suspicious skin lesions noted CVC - tunneled CVC w/ dressing dry, occlusive, & intact; site without erythema, drainage, or tenderness LABS: Recent Labs Component Name 03/31/20 0020 03/29/20 0024 03/27/20 0607 03/18/20 2357 WBC 12.1* 12.7* 12.5* - 16.8* RBC 3.44* 3.50* 3.27* - 3.42* HGB 10.2* 10.3* 9.7* - 10.0* HCT 30.7* 31.4* 29.8* - 30.1* MCV 89.2 89.7 91.1 - 88.0 MCH 29.7 29.4 29.7 - 29.2 MCHC 33.2 32.8 32.6 - 33.2 PLTCOUNT 238 237 211 - 188 RDWSD 75.8* 76.1* 78.3* - 62.7* RDW 24.3* 24.5* 24.5* - 21.2* MPV 12.5 12.3 11.1 - - NRBCABS 0.79* 1.08* 1.36* - 1.83* NRBCAUTOPCT 6.5* 8.5* 10.9* - 10.9* NEUTPCT 76.3* 81.1* 76.5* - - LYMPHSPCT 15.0* 10.1* 9.9* - - MONOPCT 5.3 6.1 7.9 - - EOSPCT 1.1 0.5 1.8 - - BASOPCT 0.3 0.2 0.5 - - IMMGRANSPCT 2.0* 2.0* 3.4* - - NEUTABS 9.2* 10.3* 9.6* - 15.96* LYMPHS 1.8 1.3 1.2 - 0.17* MONO 0.64 0.78* 0.99* - 0.50 EOS 0.13 0.06 0.23 - - BASO 0.04 0.02 0.06 - - TOTCELLCNT - - - - 100 - = values in this interval not displayed. Recent Labs Component Name 03/31/20 0040 03/29/20 0024 03/27/20 0607 BUN 21 19 21 CREATININE 0.9 0.8 0.9 NA 143 141 143 POTASSIUM 4.2 4.4 3.7 CL 102 99 104 CO2 28 30* 27 CALCIUM 8.6 8.6 8.6 PROT 5.6* 5.8* 5.1* ALB 2.5* 2.6* 2.5* TBILI 0.2 0.2 0.2 ALKPHOS 103 103 99 ALT 56* 74* 73* AST 22 26 27 ANIONGAP 17 16 16 BCR 23 24* 23 OSMOLALITY 300 295 299 AGRATIO 0.8* 0.8* 1.0* EGFR >60 >60 >60 Recent Labs Component Name 03/31/20 0040 03/29/20 0024 03/27/20 0607 MAGNESIUM 1.9 2.0 1.7 Recent Labs Component Name 03/31/20 0040 03/29/20 0024 03/27/20 0607 PHOS 4.0 4.4 4.8* Recent Labs Component Name 03/31/20 0000 03/29/20 0024 03/27/20 0607 CRP 2.9* 3.1* 2.1* LDH Total Date Value Ref Range Status 03/31/2020 450 (H) 125 - 243 Units/L Final 03/29/2020 428 (H) 125 - 243 Units/L Final 03/27/2020 358 (H) 125 - 243 Units/L Final Recent Labs Component Name 03/31/20 0000 03/29/20 0024 03/27/20 0607 FERRITIN 518* 626* 651* Recent Labs Component Name 03/31/20 0020 03/29/20 0024 03/27/20 0607 ESR 77* 74* 44* Recurring Labs: Ig03/13/20 162, IVIG given. 03/22/20 - 509 CD4: 02/27/20-68 PATHOLOGY: BMBX (03/03/20): Path - Normocellular marrow with maturing trilineage hematopoiesis. NISHA Flow - NISHA Cyto - 46,XY FISH - negative INFECTIOUS: Covid swab (03/29/20): positive BCx (03/24/20): NGTD BCx (03/21/20): NGTD Covid swab (03/07/20): positive Bronch (03/06/20): COVID +, otherwise negative. Path reactive alveolar parenchyma with mild chronic inflammation RADIOLOGY: CXR (03/20/20): Bilateral interstitial and airspace opacities are mildly improved. No new areas of airspace consolidation observed. There is suggestion of small bilateral pleural effusions with adjacent atelectasis or airspace disease. Venous Duplex (03/03/20): Negative for DVT CT Chest (03/02/30): Altered distribution of prominent geographic GGO within upper and lower lung zones bilaterally. Re-demonstration of nonocclusive thrombus within left brachiocephalic vein which extends to the superior vena cava. ECHO (03/02/20): ~LVEF 68% ASSESSMENT/PLAN: JALIL LUIS is a 49 year old male, who is Day +165 (Day 0 is 10/20/19) of an autologous peripheral blood stem cell transplant with a 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 SYSTEMS: Marginal Zone Lymphoma in CR2 pre-transplant Schema: 5A Prep: BEAM, Cell count 10.4 x 10^6 CD34+cells/kg in 5 bags; day [address] A/P -- BMBx completed (03/03) -Transfusion threshold: Hgb > 7; Plt > 10; CMV +, transfusion pre meds: none needed -Engraftment: ANC day +9 (10/29/19); plt engraftment 11/03/19 (day +14) -given overall stability will check CBCw/Diff MWF OI prophylaxis: Bacterial:??Pen VK PJP:??Bactrim DS MWF Viral: Valtrex 500mg BID COVID -tested positive early January, asymptomatic at that time -Covid from bronch 03/07 and PROVISIONING ANALYST swab 03/07 both positive -received remdesivir 03/08 - 03/12 & convalescent plasma 03/10 -given overall stability will check labs every MWF at this point -following discussion with pulm pt will likely benefit from longer steroid taper than outlined in [facility]+ protocol -steroids switched to pred 03/18 then tapered to 60mg 03/20; >>start slow taper over 2-3 weeks on 03/23 >>taper by 10mg every 4 days>>03/30 30 mg daily, next taper 04/03 -continue altuberol and symbicort and O2 monitoring -stopped vit C and zinc per [facility]+ protocol -continue PO thiamine until discharge Hypoxia -overall stable at this time; continues on 50% CPAP alternating with HFNC -exercise tolerance seems to be slowly improving -started long acting beta agonist/corticosteroid (symbicort) 03/22 -2 COVID, see above -intubated 03/06/20 -03/08/20 -Bronch'd 03/06/20>>COVID + otherwise unremarkable -likely 2-3 weeks before significant improvement and would likely benefit from LTACH while taperingsteroids and weaning oxygen Arthralgias--Resolved -new onset bilateral knee pain without erythema or swelling -unlikely DVT given current ACT -? 2/2 known COVID vs steroid taper -Celebrex 100mg BID Folliculitis -continues to improve -keep skin clean and dry, will follow closely Right IJ venous clot 09/27/19 -Lovenox 120 mg Q12H while inpt -previously on Eliquis 5 mg BID -when discharged to LTAC given overall stability reasonable to resume Eliquis at that time Pertinent History: Persistent Fevers: completed 7D course of cem and vanco on 03/08/20 Anxiety/Depression: Lexapro 10 mg daily Restless Leg Syndrome: Requip 0.25 mg QHS Headaches: tramadol 50 mg q8h. LP completed 03/01. Results negative for meningitis Discharge Planning: Patients preferred contact information: cell Caregiver: sister, girlfriend Preferred D/C [facility]acy: [facility] Intended lodging: home Referring provider: Cesar Tavares Disposition: Remain inpatient at [facility] for O2 support, placement in LTAC approved although waiting for negative pressure room to become available Asim Ramirez APRN, TALENT ACQUISITION OPERATIONS MANAGER-C [facility] Blood Marrow and Transplant Pager: [phone] I personally eamined Mr. Jalil Mansfield Luis. I also discussed the assessment and plan in detail with the team on rounds. I made some modifications to the above note. I fully concur with the above assessment and plan. Ezio Segal MD External [employer] Department of Internal Medicine Division of Hematology Oncology * Katty Zuniga RN - 04/02/2020 6:15 AM CDT Problem: Isolation Goal: Prevent Transmission of Infection Outcome: Ongoing Problem: Skin Integrity Goal: Skin integrity is maintained or improved Outcome: Ongoing Problem: Impaired Gas Exchange Goal: Resp rate/effort will be within specified limits Outcome: Ongoing * Seble Riley RN - 04/01/2020 5:13 PM CDT Problem: Pain/Discomfort Goal: Patient exhibits reduced pain/discomfort as evidenced by pain scores Outcome: Ongoing Goal: Patient uses pharmacological and non-pharmacological pain management strategies. Outcome: Ongoing Goal: Patient verbalizes acceptable level of pain relief and ability to engage in desired activity. Outcome: Ongoing Problem: Fall Risk Goal: Fall risk and fall related injury risk are minimized Outcome: Ongoing Problem: Isolation Goal: Prevent Transmission of Infection Outcome: Ongoing Problem: Isolation Goal: Prevent Transmission of Infection Outcome: Ongoing Problem: Anemia Goal: Patient able to verbalize preventions and signs & symptoms Outcome: Ongoing Problem: Protective Precautions Goal: Patient will remain free of Nosocomial Infections Outcome: Ongoing Problem: Nutrient: Increased nutrient needs (specify) Goal: Total intake will meet estimated nutrient needs Outcome: Ongoing Problem: Balance Goal: LTG - Patient will maintain standing and sitting balance to allow for completion of daily activities Outcome: Ongoing Problem: Balance Goal: LTG - Patient will maintain balance to allow for safe mobility Outcome: Ongoing Problem: Skin Integrity Goal: Skin integrity is maintained or improved Outcome: Ongoing Problem: Tobacco Use Goal: Inpatient tobacco-use cessation counseling participation Outcome: Ongoing Problem: Impaired Gas Exchange Goal: Resp rate/effort will be within specified limits Outcome: Ongoing * Shalini Segal MD - 04/01/2020 6:30 AM CDT Autologous Hematopoietic Stem Cell Daily Note: PATIENT IDENTIFIERS: JALIL LUIS is a 49 year old male who is Day +164 (Day 0 is 10/20/19) of an autologous peripheral blood stem cell transplant with a 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 INTERVAL HISTORY: Feeling well this morning VSS On HFNC at 70%/50L sating well into the 90s Using CPAP mostly at night Continues to work with PT/OT and showing mild improvements in exercise tolerance Appetite stable Denies joint pain Denies N/V/F/C/D Reports stable bowel and bladder Placement at [facility] has been approved, waiting for neg pressure room to become available ROS: A comprehensive review of systems was negative except for: as noted above MEDICATIONS FOR CURRENT ENCOUNTER: SCHEDULED MEDICATIONS: 0.9% NaCl injection 3 mL, Intracatheter, q8h albuterol HFA (PROVENTIL;VENTOLIN;PROAIR) 108 (90 Base) MCG/ACT inhaler 2 puff, Inhalation, q4h artificial tears ophthalmic ointment, Each Eye, q8h budesonide-formoterol (SYMBICORT) 80-4.5 MCG/ACT inhaler 2 puff, Inhalation, BID celecoxib (CeleBREX) capsule 100 mg, Oral, BID enoxaparin (LOVENOX) injection 120 mg, Subcutaneous, q12h escitalopram (LEXAPRO) tablet 10 mg, Oral, QDAY pantoprazole EC (PROTONIX) tablet 40 mg, Oral, QDAY penicillin V potassium (VEETIDS) solution 250 mg, Oral, q12h predniSONE (DELTASONE) tablet 30 mg, Oral, QDAY WITH BREAKFAST rOPINIRole (REQUIP) tablet 0.25 mg, Oral, AT BEDTIME sulfamethoxazole-trimethoprim (BACTRIM DS; SEPTRA DS) 800-160 MG tablet 1 tablet, Oral, MON, WED AND FRI thiamine (VITAMIN B-1) tablet 200 mg, Oral, q12h traMADol (ULTRAM) tablet 50 mg, Oral, q8h valACYclovir (VALTREX) tablet 500 mg, Oral, BID ?? vitamin D3-cholecalciferol (CHOLECALCIFEROL) 25 MCG (1000 UNITS) tablet 2,000 Units, Oral, QDAY ?? CONTINUOUS MEDICATIONS: PRN MEDICATIONS: 0.9% NaCl injection 1-10 mL, Intracatheter, PRN acetaminophen (TYLENOL) tablet 325 mg, Oral, q4h PRN magnesium sulfate 2 g in 50 mL bolus, Intravenous, PRN ondansetron (disintegrating) (ZOFRAN ODT) tablet 4 mg, Oral, q8h PRN ondansetron (ZOFRAN) injection 4 mg, Intravenous, q8h PRN oxyCODONE (immediate release) (ROXICODONE) tablet 5 mg, Oral, q4h PRN prochlorperazine (COMPAZINE) injection 10 mg, Intravenous, q6h PRN prochlorperazine (COMPAZINE) tablet 5 mg, Oral, q8h PRN ?? saline nasal spray (OCEAN; BABY AYR) 0.65 % nasal spray 2 spray, Each Nostril, q2h PRN VITALS: Vitals: 03/31/20 2012 03/31/20 2152 04/01/20 0011 04/01/20 0506 BP: 130/86 132/77 116/84 Pulse: (!) 115 (!) 111 98 90 Resp: 18 Temp: 98.4 ??F 98.2 ??F 97.9 ??F SpO2: 99% 99% 100% 100% Weight: Height: Wt Readings from Last 3 Encounters: 03/30/20 113.7 kg (250 lb 10.6 oz) 02/26/20 120.2 kg (265 lb) 11/15/19 123.4 kg (272 lb) Date 03/31/20 07 - 04/01/20 0659 04/01/20 07 - 04/02/20 0659 Shift 9560-9922 1751-3906 24 Hour Total 2452-7417 7734-0975 24 Hour Total INTAKE P.O. 5005 067 5860 Shift Total(mL/kg) 1040(9.1) 240(2.1) 1280(11.3) OUTPUT Urine(mL/kg/hr) 900(0.7) 200 1100 Shift Total(mL/kg) 900(7.9) 200(1.8) 1100(9.7) NET 140 40 180 Weight (kg) 113.7 113.7 113.7 113.7 113.7 113.7 PHYSICAL EXAM: General appearance - alert, well appearing, in no distress, and acyanotic in no respiratory distress Mental status - alert, oriented to person, place, and time, normal mood, behavior, speech, dress, motor activity, and thought processes, affect appropriate to mood Mouth - mucous membranes moist, pharynx normal without lesions Chest - fine crackles in bilateral bases, no wheezes, symmetric air entry, no tachypnea, retractions or cyanosis Heart - normal rate and regular rhythm, no murmurs noted Abdomen - soft, nontender, nondistended, no masses or organomegaly, bowel sounds normal Neurological - alert, oriented, normal speech, no focal findings or movement disorder noted Musculoskeletal - no joint tenderness, deformity or swelling, no muscular tenderness noted Extremities - peripheral pulses normal, no pedal edema, no clubbing or cyanosis Skin - normal coloration and turgor, folliculitis to chest continues to improve, no suspicious skinlesions noted LABS: Recent Labs Component Name 03/31/20 0020 03/29/20 0024 03/27/20 0607 03/18/20 2357 WBC 12.1* 12.7* 12.5* - 16.8* RBC 3.44* 3.50* 3.27* - 3.42* HGB 10.2* 10.3* 9.7* - 10.0* HCT 30.7* 31.4* 29.8* - 30.1* MCV 89.2 89.7 91.1 - 88.0 MCH 29.7 29.4 29.7 - 29.2 MCHC 33.2 32.8 32.6 - 33.2 PLTCOUNT 238 237 211 - 188 RDWSD 75.8* 76.1* 78.3* - 62.7* RDW 24.3* 24.5* 24.5* - 21.2* MPV 12.5 12.3 11.1 - - NRBCABS 0.79* 1.08* 1.36* - 1.83* NRBCAUTOPCT 6.5* 8.5* 10.9* - 10.9* NEUTPCT 76.3* 81.1* 76.5* - - LYMPHSPCT 15.0* 10.1* 9.9* - - MONOPCT 5.3 6.1 7.9 - - EOSPCT 1.1 0.5 1.8 - - BASOPCT 0.3 0.2 0.5 - - IMMGRANSPCT 2.0* 2.0* 3.4* - - NEUTABS 9.2* 10.3* 9.6* - 15.96* LYMPHS 1.8 1.3 1.2 - 0.17* MONO 0.64 0.78* 0.99* - 0.50 EOS 0.13 0.06 0.23 - - BASO 0.04 0.02 0.06 - - TOTCELLCNT - - - - 100 - = values in this interval not displayed. Recent Labs Component Name 03/31/20 0040 03/29/20 0024 03/27/20 0607 BUN 21 19 21 CREATININE 0.9 0.8 0.9 NA 143 141 143 POTASSIUM 4.2 4.4 3.7 CL 102 99 104 CO2 28 30* 27 CALCIUM 8.6 8.6 8.6 PROT 5.6* 5.8* 5.1* ALB 2.5* 2.6* 2.5* TBILI 0.2 0.2 0.2 ALKPHOS 103 103 99 ALT 56* 74* 73* AST 22 26 27 ANIONGAP 17 16 16 BCR 23 24* 23 OSMOLALITY 300 295 299 AGRATIO 0.8* 0.8* 1.0* EGFR >60 >60 >60 Recent Labs Component Name 03/31/20 0040 03/29/20 0024 03/27/20 0607 MAGNESIUM 1.9 2.0 1.7 Recent Labs Component Name 03/31/20 0040 03/29/20 0024 03/27/20 0607 PHOS 4.0 4.4 4.8* Recent Labs Component Name 03/31/20 0000 03/29/20 0024 03/27/20 0607 CRP 2.9* 3.1* 2.1* LDH Total Date Value Ref Range Status 03/31/2020 450 (H) 125 - 243 Units/L Final 03/29/2020 428 (H) 125 - 243 Units/L Final 03/27/2020 358 (H) 125 - 243 Units/L Final Recent Labs Component Name 03/31/20 0000 03/29/20 0024 03/27/20 0607 FERRITIN 518* 626* 651* Recent Labs Component Name 03/31/20 0020 03/29/20 0024 03/27/20 0607 ESR 77* 74* 44* Recurring Labs: Ig03/13/20 162, IVIG given. 03/22/20 - 509 CD4: 02/27/20-68 PATHOLOGY: BMBX (03/03/20): Path - Normocellular marrow with maturing trilineage hematopoiesis. NISHA Flow - NISHA Cyto - 46,XY FISH - negative INFECTIOUS: Covid swab (03/29/20): positive BCx (03/24/20): NGTD BCx (03/21/20): NGTD Covid swab (03/07/20): positive Bronch (03/06/20): COVID +, otherwise negative. Path reactive alveolar parenchyma with mild chronic inflammation RADIOLOGY: CXR (03/20/20): Bilateral interstitial and airspace opacities are mildly improved. No new areas of airspace consolidation observed. There is suggestion of small bilateral pleural effusions with adjacent atelectasis or airspace disease. Venous Duplex (03/03/20): Negative for DVT CT Chest (03/02/30): Altered distribution of prominent geographic GGO within upper and lower lung zones bilaterally. Re-demonstration of nonocclusive thrombus within left brachiocephalic vein which extends to the superior vena cava. ECHO (03/02/20): ~LVEF 68% ASSESSMENT/PLAN: JALIL LUIS is a 49 year old male, who is Day +164 (Day 0 is 10/20/19) of an autologous peripheral blood stem cell transplant with a 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 SYSTEMS: Marginal Zone Lymphoma in CR2 pre-transplant Schema: 5A Prep: BEAM, Cell count 10.4 x 10^6 CD34+cells/kg in 5 bags; day [address] A/P -- BMBx completed (03/03) -Transfusion threshold: Hgb > 7; Plt > 10; CMV +, transfusion pre meds: none needed -Engraftment: ANC day +9 (10/29/19); plt engraftment 11/03/19 (day +14) -given overall stability will check CBCw/Diff MWF OI prophylaxis: Bacterial:??Pen VK PJP:??Bactrim DS MWF Viral: Valtrex 500mg BID COVID -tested positive early January, asymptomatic at that time -Covid from bronch 03/07 and PROVISIONING ANALYST swab 03/07 both positive -received remdesivir 03/08 - 03/12 & convalescent plasma 03/10 -given overall stability will check labs every MWF at this point -following discussion with pulm pt will likely benefit from longer steroid taper than outlined in [facility]+ protocol -steroids switched to pred 03/18 then tapered to 60mg 03/20; >>start slow taper over 2-3 weeks on 03/23 >>taper by 10mg every 4 days>>03/30 30 mg daily, next taper 04/03 -continue altuberol and symbicort and O2 monitoring -stopped vit C and zinc per [facility]+ protocol -continue PO thiamine until discharge Hypoxia -overall stable at this time; continues on 50% CPAP alternating with HFNC -exercise tolerance seems to be slowly improving -started long acting beta agonist/corticosteroid (symbicort) 03/22 -2 COVID, see above -intubated 03/06/20 -03/08/20 -Bronch'd 03/06/20>>COVID + otherwise unremarkable -likely 2-3 weeks before significant improvement and would likely benefit from LTACH while taperingsteroids and weaning oxygen Arthralgias--Resolved -new onset bilateral knee pain without erythema or swelling -unlikely DVT given current ACT -? 09/05 known COVID vs steroid taper -Celebrex 100mg BID Folliculitis -continues to improve -keep skin clean and dry, will follow closely Right IJ venous clot 09/27/19 -Lovenox 120 mg Q12H while inpt -previously on Eliquis 5 mg BID -when discharged to LTAC given overall stability reasonable to resume Eliquis at that time Pertinent History: Persistent Fevers: completed 7D course of cem and vanco on 03/08/20 Anxiety/Depression: Lexapro 10 mg daily Restless Leg Syndrome: Requip 0.25 mg QHS Headaches: tramadol 50 mg q8h. LP completed 03/01. Results negative for meningitis Discharge Planning: Patients preferred contact information: cell Caregiver: sister, girlfriend Preferred D/C Pharmacy: [facility] Intended lodging: home Referring provider: Cesar Tavares Disposition: Remain on [facility] for O2 support, working on placement in LTAC given likely prolonged weaning of oxygen Asim Ramirez APRN, TALENT ACQUISITION OPERATIONS MANAGER-C [facility] Blood Marrow and Transplant Pager: [phone] I personally reviewed Mr. Jalil Luis . I also discussed the assessment and plan in detail with the team on rounds . I made some modifications to the above note. I fully concur with the above assessment and plan. Ezio Segal MD External Grinder Tender Department of Internal Medicine Division of Hematology Oncology * Amy Anderson, PT - 03/31/2020 2:06 PM CDT [facility] Physical Medicine and Rehabilitation PhysicalTherapy Progress Note Patient: Jalil Luis Med Record Number: [id number] Date of : 1970 Age: [age] year old Pt is COVID POSITIVE.??PT and OT wear goggles, N95 mask, alva covers, face shield, gown, and gloves during session.??Co Treat with OT due to medical complexity and level of skilled assist required, especially due to vitals status/O2 needs.? Discharge Recommendation:??Patient will benefit from multidisciplinary inpatient therapies.??Recommendation changed to LTAC due to current high level of O2 requirement and decreased endurance.?? Subjective: I have been approved, now they just need to find me a bed. Patient currently using no assistive device. Mental Status: Alert, oriented x4. Pleasant, cooperative, and motivated. At start of therapy session, patient found in bed. Pain: Patient has 0 out of 10 pain. Nurse notified. Weight Bearing Status: no restrictions Mobility: Rolling: not tested Supine to Sit:Independent Sit to Supine: Independent Sit to Stand:Independent Bed to Chair: not tested Gait: Device:none Assistance: Stand By Assist with line management Distance: 10ft, 15ft Deviations: Pt ambulates to bathroom, then to sink and back to standing at edge of??bed.??Able to stand at bedside??5 mins 30 seconds??prior to resting in bed. Pt occasionally holds doorframe for balance when ambulating but able to perform without steadying assist from therapist.?? Balance: Static Sitting: good Dynamic sitting: good Static Standing: good minus Dynamic Standing: good minus Stairs : NT Vitals: (*Assess the 3 levels of oxygen saturations both for room air and 02 unless rest on room air is 88% or less). Rest BP: 153/93 HR: 117-127 Sp02 Sp02 97% Room Air L O2 BIPAP on CPAP mode 50% FIO2 Ex/Gait/Activity Without 02 BP: HR: Sp02 Room Air Ex/Gait/Activity With 02 BP: HR: 138 125 159 146 138 160 155 145 147 173 Poor read 167 Poor read Poor read 165 141 133 140 Sp02 93% after donning socks from bed 98% 2 min after donning socks from 90% transfer to toilet (peak) 93% 2 min after toilet 98% 4 min after toilet 88% post esvin care (peak) 93% 2 min post esvin 95% 3 min post esvin 98% 5 min post esvin 84% standing after wash hands (peak) 91% 1.5 min stand 93% 2 min stand 94% 3 min stand 95% 5 min stand (talking) 91% post transfer back to bed (peak) 94% 2 min post bed transfer 99% 4 min post bed transfer 99% with FIO2 change L O2 BIPAP on CPAP mode 55% FIO2 BIPAP on CPAP mode 60% FIO2 BIPAP on CPAP mode 55% FIO2 Post Activity BP: HR: 137 Sp02 Sp02 98% L O2 Room Air BIPAP on CPAP mode 55% FIO2 Observations: Pt on 50% FIO2 at rest when therapist arrives. He is able to be on 55% FIO2 for all activity but requires to bump up to 60% FIO2 with standing at side of bed. Able to stand for 5 min 30seconds at side of bed before return to bed for rest. Pt on 50% FIO2 at end of session. Activity Tolerance: Patient's activity tolerance: fair to fair plus; Treatment/therapeutic Exercise: Pt donns socks in bed on 55% FIO2 and is able to remain on this formost of the rest of the session. Pt transfers to toilet, rests, performs esvin care, rests, then washes hands at sink and stands at side of bed. Once standing side of bed FIO2 needs to be bumped up to60% and overall pt able to remain standing 5 min 30 seconds. He recovers quickly once in bed. Patient/Family Teaching: Exercise, Gait, Mobility and breathing/O2 status Patient demonstrated Good understanding of instructions given. Short Term Goals: Goal Formation?With patient Patient will perform bed mobility:??Independent??(MET 03/15) Patient will transfer sit to/from stand:??Independent (MET 03/15) Patient will transfer bed to/from chair:??Independent (updated 03/15) Patient will ambulate??50??feet with Stand By Assist??and appropriate AD Patient will ascend/descend??10??steps: Stand By Assist??and hand rail assist?? Patient will perform home exercise program independently ?? Residential Goal(s): Patient to be independent/baseline with functional mobility and self care and be able to safely discharge to prior level of care Update Treatment Plan: Continue with current PT plan of care to improve safety and functional mobility, especially focusing on weaning O2, progressing mobility. If patient is discharged from the facility, this note serves as a discharge note if further physical therapy visits did not occur. Following therapy session, patient left in bed, with call light within reach and with RN, Keena lowery. Amy Anderson, PT 03/31/2020 * Amy Baker, OT - 03/31/2020 2:06 PM CDT [facility] Physical Medicine and Rehabilitation Occupational Therapy Progress Note Patient: Jalil Luis Med Record Number: [id number] Date of : 1970 Age: [age] year old Co-Tx w/ PT Patient is COVID-19 positive. PPE donned by therapist throughout session - disposable gown, gloves, N95 mask, eye protection, faceshield, hair net, alva cover and shoe covers. Tech: N/A Discharge Recommendation: Patient will benefit from multidisciplinary inpatient therapies (LTAC). Precautions: covid+ Subjective: I have been accepted at [facility]! Patient is pleasant & motivated. At start of therapy session, patient found in bed and with no alarm. Pain: Patient has 0 out of 10 pain. Nurse notified. Activities of Daily Living Feeding: NT Grooming/Bathing: Stand By Assist to wash hands standing at sink Upper Extremity Dressing: not tested Lower Extremity Dressing: Stand By Assist to don bilateral socks supine in bed Toileting/Transfers: Stand By Assist to transfer on/off toilet & minimal assist for set up to complete pericare in sitting. Mobility: Assist device: none Supine to/from Sit:Independent Sit to/from Stand: Dependent Bed to/from Chair: not tested Functional Mobility: From EOB to toilet, sink, then back to bed with Stand By Assist Splint Issued/Checked: none Splint Check Completed: N/A Balance: Static Sitting: good Dynamic Sitting: good Static Standing: good Dynamic Standing: good Vitals: Rest BP: 153/93 HR: 117-127 SpO2 SpO2 97% Room Air L 02 BIPAP on CPAP mode 50% FIO2 Ex/Gait/Activity Without 02 BP: HR: SpO2 Room Air Ex/Gait/Activity With 02 BP: HR: 125-173 SpO2 84-99% L 02 BIPAP on CPAP mode 60% FIO2 Post Activity BP: HR: 137 SpO2 SpO2 98% L 02 Room Air BIPAP on CPAP mode 55% FIO2 Observations: Pt remains on 55-60% FIO2 with activity and able to demo improved tolerance to activity. Able to stand for 5 minutes today.??Pt requires frequent rest breaks between all activity x 3-5 minutes. Activity tolerance: poor plus - improving Cognitive/Perceptual: Patient A&Ox3. Patient presents with good safety awareness and good insight to deficits. Patient able to follow 100% of all commands. Patient appropriate in conversation this date. Treatment/Therapeutic Exercise: Treatment session this date focused on ADL training Functional transfer training Endurance training Bed mobility Energy conservation Safety awareness Patient/Family Teaching: Mobility, Self care and Patient voiced understanding of instructions given Equipment Issued: none Update Treatment Plan/Goals : Patient to benefit from continued skilled OT to improve independence with activities of daily living, increase strength, endurance, range of motion, and decrease pain. Continue goals per plan of care. Short Term Goals: Patient will perform grooming?Standing at sink and With modified independence Patient will perform lower extremity dressing?With modified independence Patient will perform toileting?With modified independence Residential Goal:Patient to discharge to appropriate next level of inpatient care If patient is discharged from the facility, this note serves as a discharge note if further occupational therapy visits did not occur. Following therapy session, patient left in bed, with call light within reach and with RN/CP rehab cues written on white board. Amy Baker OT * Asim Ramirez APRN-SEWING DEMONSTRATOR - 03/31/2020 8:41 AM CDT Autologous Hematopoietic Stem Cell Daily Note: PATIENT IDENTIFIERS: JALIL LUIS is a 49 year old male who is Day +163 (Day 0 is 10/20/19) of an autologous peripheral blood stem cell transplant with a 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 INTERVAL HISTORY: Feeling well this AM Continues to alternating between CPAP at night and with activity and HFNC Yesterday was able to complete PT and remain on 50% fio2 with CPAP and tolerate well Denies SOB or difficulty breathing at rest Labs today stable Denies N/V/F/C/D Reports stable bowel and bladder Reports stable appetite Continues to work with PT ROS: A comprehensive review of systems was negative except for: as noted above MEDICATIONS FOR CURRENT ENCOUNTER: SCHEDULED MEDICATIONS: 0.9% NaCl injection 3 mL, Intracatheter, q8h albuterol HFA (PROVENTIL;VENTOLIN;PROAIR) 108 (90 Base) MCG/ACT inhaler 2 puff, Inhalation, q4h artificial tears ophthalmic ointment, Each Eye, q8h budesonide-formoterol (SYMBICORT) 80-4.5 MCG/ACT inhaler 2 puff, Inhalation, BID celecoxib (CeleBREX) capsule 100 mg, Oral, BID enoxaparin (LOVENOX) injection 120 mg, Subcutaneous, q12h escitalopram (LEXAPRO) tablet 10 mg, Oral, QDAY pantoprazole EC (PROTONIX) tablet 40 mg, Oral, QDAY penicillin V potassium (VEETIDS) solution 250 mg, Oral, q12h predniSONE (DELTASONE) tablet 30 mg, Oral, QDAY WITH BREAKFAST rOPINIRole (REQUIP) tablet 0.25 mg, Oral, AT BEDTIME sulfamethoxazole-trimethoprim (BACTRIM DS; SEPTRA DS) 800-160 MG tablet 1 tablet, Oral, MON, WED AND FRI thiamine (VITAMIN B-1) tablet 200 mg, Oral, q12h traMADol (ULTRAM) tablet 50 mg, Oral, q8h valACYclovir (VALTREX) tablet 500 mg, Oral, BID ?? vitamin D3-cholecalciferol (CHOLECALCIFEROL) 25 MCG (1000 UNITS) tablet 2,000 Units, Oral, QDAY ?? CONTINUOUS MEDICATIONS: PRN MEDICATIONS: 0.9% NaCl injection 1-10 mL, Intracatheter, PRN acetaminophen (TYLENOL) tablet 325 mg, Oral, q4h PRN magnesium sulfate 2 g in 50 mL bolus, Intravenous, PRN ondansetron (disintegrating) (ZOFRAN ODT) tablet 4 mg, Oral, q8h PRN ondansetron (ZOFRAN) injection 4 mg, Intravenous, q8h PRN oxyCODONE (immediate release) (ROXICODONE) tablet 5 mg, Oral, q4h PRN prochlorperazine (COMPAZINE) injection 10 mg, Intravenous, q6h PRN prochlorperazine (COMPAZINE) tablet 5 mg, Oral, q8h PRN ?? saline nasal spray (OCEAN; BABY AYR) 0.65 % nasal spray 2 spray, Each Nostril, q2h PRN VITALS: Vitals: 03/30/20 2100 03/31/20 0052 03/31/20 0520 03/31/20 0749 BP: 120/81 118/76 121/86 Pulse: 103 97 84 99 Resp: 18 18 18 18 Temp: 98.1 ??F 98.2 ??F 97.4 ??F 98 ??F SpO2: 98% 100% 100% 100% Weight: Height: Wt Readings from Last 3 Encounters: 03/30/20 113.7 kg (250 lb 10.6 oz) 02/26/20 120.2 kg (265 lb) 11/15/19 123.4 kg (272 lb) Date 03/30/20 07 - 03/31/20 0659 03/31/20 07 - 04/01/20 0659 Shift 4919-5971 3515-5395 24 Hour Total 7099-1279 9919-5452 24 Hour Total INTAKE P.O. 770 770 200 200 Shift Total(mL/kg) 770(6.8) 770(6.8) 200(1.8) 200(1.8) OUTPUT Urine(mL/kg/hr) 1000(0.7) 750(0.5) 1750(0.6) Shift Total(mL/kg) 1000(8.8) 750(6.6) 1750(15.4) NET -230 -750 -980 200 200 Weight (kg) 113.7 113.7 113.7 113.7 113.7 113.7 PHYSICAL EXAM: General appearance - alert, well appearing, in no distress, and acyanotic in no respiratory distress Mental status - alert, oriented to person, place, and time, normal mood, behavior, speech, dress, motor activity, and thought processes, affect appropriate to mood Mouth - mucous membranes moist, pharynx normal without lesions Chest - fine crackles to bilateral bases, no wheezes, symmetric air entry, no tachypnea, retractions or cyanosis Heart - normal rate and regular rhythm, no murmurs noted Abdomen - soft, nontender, nondistended, no masses or organomegaly, bowel sounds normal Neurological - alert, oriented, normal speech, no focal findings or movement disorder noted Musculoskeletal - no joint tenderness, deformity or swelling, no muscular tenderness noted Extremities - peripheral pulses normal, no pedal edema, no clubbing or cyanosis Skin - normal coloration and turgor, follicular rash to upper chest, no suspicious skin lesions noted CVC - tunneled CVC w/ dressing dry, occlusive, & intact; site without erythema, drainage, or tenderness LABS: Recent Labs Component Name 03/31/20 0020 03/29/20 0024 03/27/20 0607 03/18/20 2357 WBC 12.1* 12.7* 12.5* - 16.8* RBC 3.44* 3.50* 3.27* - 3.42* HGB 10.2* 10.3* 9.7* - 10.0* HCT 30.7* 31.4* 29.8* - 30.1* MCV 89.2 89.7 91.1 - 88.0 MCH 29.7 29.4 29.7 - 29.2 MCHC 33.2 32.8 32.6 - 33.2 PLTCOUNT 238 237 211 - 188 RDWSD 75.8* 76.1* 78.3* - 62.7* RDW 24.3* 24.5* 24.5* - 21.2* MPV 12.5 12.3 11.1 - - NRBCABS 0.79* 1.08* 1.36* - 1.83* NRBCAUTOPCT 6.5* 8.5* 10.9* - 10.9* NEUTPCT 76.3* 81.1* 76.5* - - LYMPHSPCT 15.0* 10.1* 9.9* - - MONOPCT 5.3 6.1 7.9 - - EOSPCT 1.1 0.5 1.8 - - BASOPCT 0.3 0.2 0.5 - - IMMGRANSPCT 2.0* 2.0* 3.4* - - NEUTABS 9.2* 10.3* 9.6* - 15.96* LYMPHS 1.8 1.3 1.2 - 0.17* MONO 0.64 0.78* 0.99* - 0.50 EOS 0.13 0.06 0.23 - - BASO 0.04 0.02 0.06 - - TOTCELLCNT - - - - 100 - = values in this interval not displayed. Recent Labs Component Name 03/31/20 0040 03/29/20 0024 03/27/20 0607 BUN 21 19 21 CREATININE 0.9 0.8 0.9 NA 143 141 143 POTASSIUM 4.2 4.4 3.7 CL 102 99 104 CO2 28 30* 27 CALCIUM 8.6 8.6 8.6 PROT 5.6* 5.8* 5.1* ALB 2.5* 2.6* 2.5* TBILI 0.2 0.2 0.2 ALKPHOS 103 103 99 ALT 56* 74* 73* AST 22 26 27 ANIONGAP 17 16 16 BCR 23 24* 23 OSMOLALITY 300 295 299 AGRATIO 0.8* 0.8* 1.0* EGFR >60 >60 >60 Recent Labs Component Name 03/31/20 0040 03/29/20 0024 03/27/20 0607 MAGNESIUM 1.9 2.0 1.7 Recent Labs Component Name 03/31/20 0040 03/29/20 0024 03/27/20 0607 PHOS 4.0 4.4 4.8* Recent Labs Component Name 03/31/20 0000 03/29/20 0024 03/27/20 0607 CRP 2.9* 3.1* 2.1* LDH Total Date Value Ref Range Status 03/31/2020 450 (H) 125 - 243 Units/L Final 03/29/2020 428 (H) 125 - 243 Units/L Final 03/27/2020 358 (H) 125 - 243 Units/L Final Recent Labs Component Name 03/31/20 0000 03/29/20 0024 03/27/20 0607 FERRITIN 518* 626* 651* Recent Labs Component Name 03/31/20 0020 03/29/20 0024 03/27/20 0607 ESR 77* 74* 44* Recurring Labs: Ig/10/20 162, IVIG given. 03/22/20 - 509 CD4: 02/27/20-68 PATHOLOGY: BMBX (03/03/20): Path - Normocellular marrow with maturing trilineage hematopoiesis. NISHA Flow - NISHA Cyto - 46,XY FISH - negative INFECTIOUS: Covid swab (03/29/20): positive BCx (03/24/20): NGTD BCx (03/21/20): NGTD Covid swab (03/07/20): positive Bronch (03/06/20): COVID +, otherwise negative. Path reactive alveolar parenchyma with mild chronic inflammation RADIOLOGY: CXR (03/20/20): Bilateral interstitial and airspace opacities are mildly improved. No new areas of airspace consolidation observed. There is suggestion of small bilateral pleural effusions with adjacent atelectasis or airspace disease. Venous Duplex (03/03/20): Negative for DVT CT Chest (03/02/30): Altered distribution of prominent geographic GGO within upper and lower lung zones bilaterally. Re-demonstration of nonocclusive thrombus within left brachiocephalic vein which extends to the superior vena cava. ECHO (03/02/20): ~LVEF 68% ASSESSMENT/PLAN: JALIL LUIS is a 49 year old male, who is Day +163 (Day 0 is 10/20/19) of an autologous peripheral blood stem cell transplant with a 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 SYSTEMS: Marginal Zone Lymphoma in CR2 pre-transplant Schema: 5A Prep: BEAM, Cell count 10.4 x 10^6 CD34+cells/kg in 5 bags; day [address] A/P -- BMBx completed (03/03) -Transfusion threshold: Hgb > 7; Plt > 10; CMV +, transfusion pre meds: none needed -Engraftment: ANC day +9 (10/29/19); plt engraftment 11/03/19 (day +14) -given overall stability will check CBCw/Diff MWF OI prophylaxis: Bacterial:??Pen VK PJP:??Bactrim DS MWF Viral: Valtrex 500mg BID COVID -tested positive early January, asymptomatic at that time -Covid from bronch 03/07 and PROVISIONING ANALYST swab 03/07 both positive -received remdesivir 03/08 - 03/12 & convalescent plasma 03/10 -given overall stability will check labs every MWF at this point >>labs overall stable today (03/31) -following discussion with pulm pt will likely benefit from longer steroid taper than outlined in [facility] protocol -steroids switched to pred 03/18 then tapered to 60mg 03/20; >>start slow taper over 2-3 weeks on 03/23 >>taper by 10mg every 4 days>>03/30 30 mg daily, next taper 04/03 -continue altuberol and symbicort and O2 monitoring -stopped vit C and zinc per [facility] protocol -continue PO thiamine until discharge Hypoxia -overall stable at this time; continues on 50% CPAP alternating with HFNC -started long acting beta agonist/corticosteroid (symbicort) 03/22 -09/05 COVID, see above -intubated 03/06/20 -03/08/20 -Bronch'd 03/06/20>>COVID + otherwise unremarkable -likely 2-3 weeks before significant improvement and would likely benefit from LTACH while taperingsteroids and weaning oxygen Arthralgias--Resolved -new onset bilateral knee pain without erythema or swelling -unlikely DVT given current ACT -? 09/05 known COVID vs steroid taper -Celebrex 100mg BID Folliculitis -improving -keep skin clean and dry, will follow closely Right IJ venous clot 09/27/19 -Lovenox 120 mg Q12H while inpt -previously on Eliquis 5 mg BID -when discharged to LTAC given overall stability reasonable to resume Eliquis at that time Pertinent History: Persistent Fevers: reason for admission, completed 7D course of cem and vanco on 03/08/20 Anxiety/Depression: Lexapro 10 mg daily Restless Leg Syndrome: Requip 0.25 mg QHS Headaches: tramadol 50 mg q8h. LP completed 03/01. Results negative for meningitis Discharge Planning: Patients preferred contact information: cell Caregiver: sister, girlfriend Preferred D/C Pharmacy: [facility] Intended lodging: home Referring provider: Cesar Tavares Disposition: Remain on 8S for O2 support, working on placement in LTAC given likely prolonged weaning of oxygen Asim Ramirez APRN, TALENT ACQUISITION OPERATIONS MANAGER-C [facility] Blood Marrow and Transplant Pager: [phone] I independently interviewed and examined Jalil Luis with the BMT advanced practice provider. I reviewed my findings and assessment with the advanced practice provider and the patient. I reviewed the below note. Please see note for full detail. Day 163 VSS 50% with CPAP 50L FiO2 70% HFNC Goal sats > 92% CoViD markers being followed QOD with lab draw - Ddimer wnl Good po intake Albumin 2.0s Meds reviewed: Celebrex for arthralgias Lovenox full dose - decide when to stop, will likely keep on full dose post- discharge for 2-4 weeks Pred 30mg (tapered last 03/30) - wean by 10mg q4d PCN VK/Bactrim/VCV Requip Lexapro Thiamine until discharge, stop Zinc, Vit C stopped Scheduled albuterol At this point, Aurelio would be done with AC for UE DVT However, in light of CoViD and prolonged stay, would be good to keep some amt of AC going (see above plan) Decide upon transition when to repeat chest imaging Working with PT everyday Still working on new LTAC Hillary Apple MD MSc wreath and garland maker hand Interim Director, Division of Hematology/Oncology [facility] * Keena Hernandez RN - 03/31/2020 8:29 AM CDT Problem: Pain/Discomfort Goal: Patient exhibits reduced pain/discomfort as evidenced by pain scores Outcome: Ongoing Problem: Fall Risk Goal: Fall risk and fall related injury risk are minimized Outcome: Ongoing Problem: Isolation Goal: Prevent Transmission of Infection Outcome: Ongoing Problem: Isolation Goal: Prevent Transmission of Infection Outcome: Ongoing Problem: Skin Integrity Goal: Skin integrity is maintained or improved Outcome: Ongoing Problem: Impaired Gas Exchange Goal: Resp rate/effort will be within specified limits Outcome: Ongoing * Alecia Aldana RN - 03/31/2020 7:40 AM CDT [facility] has received authorization from insurance. Placement is pending an open negative pressure room at [facility]. Cm to follow Sissy Aldana RN, BSN Wrapper Stitcher [phone] * Amy Anderson, PT - 03/30/2020 2:15 PM CDT [facility] Physical Medicine and Rehabilitation PhysicalTherapy Progress Note Patient: Jalil Luis [facility] Record Number: [id number] Date of : 1970 Age: [age] year old Pt is COVID POSITIVE.??PT and OT wear goggles, N95 mask, alva covers, face shield, gown, and gloves during session.??Co Treat with OT due to medical complexity and level of skilled assist required, especially due to vitals status/O2 needs.? Discharge Recommendation:??Patient will benefit from multidisciplinary inpatient therapies.??Recommendation changed to LTAC due to current high level of O2 requirement and decreased endurance.?? Subjective: They can't seem to get my lunch and breakfast order right. Patient currently using no assistive device. Mental Status:??Alert, oriented x4. Pleasant and cooperative. Demos very good awareness of medical condition and O2 status/needs.? At start of therapy session, patient found??in bed and with no alarm. ?? Pain: Patient has??0??out of 10 pain. Nurse notified. ?? Weight Bearing Status:??no restrictions? Mobility: ?Rolling: not tested ?Supine to Sit:Independent ?Sit to Supine: Independent ?Sit to Stand:Independent ?Bed to Chair: not tested Gait: ?Device:none ?Assistance: Stand By Assist??for line management ?Distance: 10ft, 15ft ?Deviations: ??Pt ambulates to bathroom, then to sink and back to standing at edge of??bed.??Able to stand at bedside 5 mins prior to resting in bed. Pt occasionally holds doorframe for balance when ambulating but able to perform without steadying assist from therapist.? Balance: ?Static Sitting: good ?Dynamic sitting: good ?Static Standing: good minus ?Dynamic Standing: good minus ?? Stairs :??NT Vitals: (*Assess the 3 levels of oxygen saturations both for room air and 02 unless rest on room air is 88% or less). Rest BP: 156/85 HR: 118-127 Sp02 Sp02 100% Room Air L O2 BIPAP on CPAP mode 55% FIO2 Ex/Gait/Activity Without 02 BP: HR: Sp02 Room Air Ex/Gait/Activity With 02 BP: HR: 135 120 149 133 133 132 140 145 161 158 151 139 140 139 147 176 170 169 166 158 155 138 145 134 127 130 126 130 Sp02 93% after donning socks in bed 95% 1 min post donning socks 91% transfer to toilet (peak) 92% 2 min post transfer 97% 3 min post transfer 95% 4 min post transfer 97% (cough) 97% 5 min post transfer 86% post esvin care (peak) 90% 1 min post esvin care 92% 2 min post esvin care 93% 3 min post esvin care 95% 4 min post esvin care 96% 5 min post esvin care 97% 6 min post esvin care (talking) 84% Post amb back to side of bed/stand 82% with 2 squats standing 89% post 2 mins of standing 90% after 2:45mins standing (then returns to bed) 86% with return to bed 86% 1 min post return to bed 88% 2 min post return to bed 94% 3 min post return to bed 94% 4 min post return to bed 95% 5 min post return to bed 97% 6 min post return to bed 97% after change in FIO2 96% L O2 BIPAP on CPAP mode 55% FIO2 BIPAP on CPAP mode 50% FIO2 Post Activity BP: HR: 123 Sp02 Sp02 96% L O2 Room Air BIPAP on CPAP mode 50% FIO2 Observations: Pt remains on 55% FIO2 throughout session and able to demo improved tolerance to activity. Able to stand for 2 min 45 seconds today (less than previous sessions). Activity Tolerance: Patient's activity tolerance: fair to fair plus--able to tolerate less FIO2 this date. Treatment/therapeutic Exercise: Pt donns socks in bed on 55% FIO2 and is able to remain on this forthe rest of the session. Pt transfers to toilet, rests, performs esvin care, rests, then washes hands at sink and stands at side of bed. Pt takes 2 squats at onset of standing then is able to remain in standing for 2 min 45 seconds (less than previous session). He recovers in bed on 55% then is ableto be dropped down to 50% FIO2. Patient/Family Teaching:??Exercise, Gait and Mobility, deep breathing Patient demonstrated??Good??understanding of instructions given. Short Term Goals: Goal Formation?With patient Patient will perform bed mobility:??Independent??(MET 03/15) Patient will transfer sit to/from stand:??Independent (MET 03/15) Patient will transfer bed to/from chair:??Independent (updated 03/15) Patient will ambulate??50??feet with Stand By Assist??and appropriate AD Patient will ascend/descend??10??steps: Stand By Assist??and hand rail assist?? Patient will perform home exercise program independently ?? Family Nurse Practitioner Goal(s): Patient to be independent/baseline with functional mobility and self care and be able to safely discharge to prior level of care Update Treatment Plan: Continue with current PT plan of care to improve safety and functional mobility, especially focusing on weaning O2 as able, endurance. If patient is discharged from the facility, this note serves as a discharge note if further physical therapy visits did not occur. Following therapy session, patient left in bed, with call light within reach and with Keena RILEY aware. Amy Anderson, PT 03/30/2020 * Alecia Aldana RN - 03/30/2020 1:14 PM CDT COVID test is resulted and [facility] is aware of results. Patient will just require a negative pressure room at [facility] for this. Per Louise with [facility], insurance authorization is still pending. Sissy Aldana RN, BSN Wrapper Stitcher [phone] * Keena Hernandez RN - 03/30/2020 8:13 AM CDT Problem: Fall Risk Goal: Fall risk and fall related injury risk are minimized Outcome: Ongoing Problem: Isolation Goal: Prevent Transmission of Infection Outcome: Ongoing Problem: Protective Precautions Goal: Patient will remain free of Nosocomial Infections Outcome: Ongoing Problem: Impaired Gas Exchange Goal: Resp rate/effort will be within specified limits Outcome: Ongoing * Inga Cortez OT - 03/30/2020 8:08 AM CDT [facility] Physical Medicine and Rehabilitation Occupational Therapy Progress Note Patient: Jalil Luis Med Record Number: [id number] Date of : 1970 Age: [age] year old Co-Tx w/ PT Patient is COVID-19 positive. PPE donned by therapist throughout session - disposable gown, gloves, N95 mask, eye protection, faceshield, hair net, alva cover and shoe covers. Discharge Recommendation: Patient will benefit from multidisciplinary inpatient therapies (LTAC) Precautions: FALLS SAFETY *COVID-19 +* Subjective: I am ready for y'all At start of therapy session, patient found in bed and with no alarm. Pain: Patient has 0 out of 10 pain in body. Nurse notified. Activities of Daily Living Feeding:NT Grooming/Bathing: Stand By Assist --washing hands at sink Upper Extremity Dressing: not tested Lower Extremity Dressing: Stand By Assist --02 dropped (see vitals) Toileting/Transfers: Stand By Assist --see vitals (recovery time is improving) Mobility: Assist device: none Supine to/from Sit:Independent Sit to/from Stand: Independent Bed to/from Chair: Stand By Assist Functional Mobility: From bed to bathroom to sink to bed with Stand By Assist Splint Issued/Checked: none Splint Check Completed: N/A Balance: Static Sitting: good Dynamic Sitting: good Static Standing: good minus Dynamic Standing: good minus Vitals: (*Assess the 3 levels of oxygen saturations both for room air and 02 unless rest on room air is 88% or less). Rest BP: 156/85 HR: 118-127 Sp02 ?? Sp02 100% Room Air ?? L O2 ?? BIPAP on CPAP mode 55% FIO2 Ex/Gait/Activity Without 02 BP: ?? HR: ?? Sp02 ?? Room Air ?? Ex/Gait/Activity With 02 BP: ?? HR: 135 120 149 133 133 132 140 145 161 158 151 139 140 139 147 176 170 169 166 158 155 138 145 134 127 130 ?? 126 130 Sp02 93% after donning socks in bed 95% 1 min post donning socks 91% transfer to toilet (peak) 92% 2 min post transfer 97% 3 min post transfer 95% 4 min post transfer 97% (cough) 97% 5 min post transfer 86% post esvin care (peak) 90% 1 min post esvin care 92% 2 min post esvin care 93% 3 min post esvin care 95% 4 min post esvin care 96% 5 min post esvin care 97% 6 min post esvin care (talking) 84% Post amb back to side of bed/stand 82% with 2 squats standing 89% post 2 mins of standing 90% after 2:45mins standing (then returns to bed) 86% with return to bed 86% 1 min post return to bed 88% 2 min post return to bed 94% 3 min post return to bed 94% 4 min post return to bed 95% 5 min post return to bed 97% 6 min post return to bed ?? 97% after change in FIO2 96% ?? L O2 BIPAP on CPAP mode 55% FIO2 ? BIPAP on CPAP mode 50% FIO2 Post Activity BP: ?? HR: 123 Sp02 ?? Sp02 96% L O2 ?? Room Air BIPAP on CPAP mode 50% FIO2 Observations: Pt remains on 55% FIO2 throughout session and able to demo improved tolerance to activity. Able to stand for 2 min 45 seconds today. Activity tolerance: poor plus--improving Cognitive/Perceptual: A&Ox4; always cooperative and pleasant. Not impulsive. Treatment/Therapeutic Exercise: Treatment session this date focused on Adaptive equipment training Functional transfer training Endurance training Bed mobility Energy conservation Safety awareness HEP training Patient/Family Teaching: Exercise, Gait, Mobility and Self care Equipment Issued: none Update Treatment Plan/Goals : Pt continues to benefit from skilled OT to improve independence with activities of daily living, increase strength, endurance, range of motion and decrease pain. Short Term Goals: Patient will perform grooming?Standing at sink and With modified independence Patient will perform lower extremity dressing?With modified independence Patient will perform toileting?With modified independence Family Nurse Practitioner Goal:Patient to discharge to appropriate next level of inpatient care If patient is discharged from the facility, this note serves as a discharge note if further occupational therapy visits did not occur. Following therapy session, patient left in bed, with call light within reach, with RNKeena aware and with RN/CP rehab cues written on white board. Inga Cortez OT * Keli Case APRN-ERIKA - 03/30/2020 7:45 AM CDT Autologous Hematopoietic Stem Cell Daily Note: PATIENT IDENTIFIERS: JALIL LUIS is a 49 year old male who is Day +162 (Day 0 is 10/20/19) of an autologous peripheral blood stem cell transplant with a 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 INTERVAL HISTORY: Awake and in bed this AM Feeling well. 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 Denies chest pain, dizziness or lightheadedness Denies F/C/N/V/D ROS: A comprehensive review of systems was negative except for: as noted above MEDICATIONS FOR CURRENT ENCOUNTER: SCHEDULED MEDICATIONS: 0.9% NaCl injection 3 mL, Intracatheter, q8h albuterol HFA (PROVENTIL;VENTOLIN;PROAIR) 108 (90 Base) MCG/ACT inhaler 2 puff, Inhalation, q4h artificial tears ophthalmic ointment, Each Eye, q8h budesonide-formoterol (SYMBICORT) 80-4.5 MCG/ACT inhaler 2 puff, Inhalation, BID celecoxib (CeleBREX) capsule 100 mg, Oral, BID enoxaparin (LOVENOX) injection 120 mg, Subcutaneous, q12h escitalopram (LEXAPRO) tablet 10 mg, Oral, QDAY pantoprazole EC (PROTONIX) tablet 40 mg, Oral, QDAY penicillin V potassium (VEETIDS) solution 250 mg, Oral, q12h predniSONE (DELTASONE) tablet 30 mg, Oral, QDAY WITH BREAKFAST rOPINIRole (REQUIP) tablet 0.25 mg, Oral, AT BEDTIME sulfamethoxazole-trimethoprim (BACTRIM DS; SEPTRA DS) 800-160 MG tablet 1 tablet, Oral, MON, WED AND FRI thiamine (VITAMIN B-1) tablet 200 mg, Oral, q12h traMADol (ULTRAM) tablet 50 mg, Oral, q8h valACYclovir (VALTREX) tablet 500 mg, Oral, BID ?? vitamin D3-cholecalciferol (CHOLECALCIFEROL) 25 MCG (1000 UNITS) tablet 2,000 Units, Oral, QDAY ?? CONTINUOUS MEDICATIONS: PRN MEDICATIONS: 0.9% NaCl injection 1-10 mL, Intracatheter, PRN acetaminophen (TYLENOL) tablet 325 mg, Oral, q4h PRN magnesium sulfate 2 g in 50 mL bolus, Intravenous, PRN ondansetron (disintegrating) (ZOFRAN ODT) tablet 4 mg, Oral, q8h PRN ondansetron (ZOFRAN) injection 4 mg, Intravenous, q8h PRN oxyCODONE (immediate release) (ROXICODONE) tablet 5 mg, Oral, q4h PRN prochlorperazine (COMPAZINE) injection 10 mg, Intravenous, q6h PRN prochlorperazine (COMPAZINE) tablet 5 mg, Oral, q8h PRN ?? saline nasal spray (OCEAN; BABY AYR) 0.65 % nasal spray 2 spray, Each Nostril, q2h PRN VITALS: Vitals: 03/30/20 0019 03/30/20 0020 03/30/20 0413 03/30/20 0448 BP: 106/74 130/85 Pulse: 102 103 98 94 Resp: 26 16 Temp: 98.6 ??F 98 ??F SpO2: 98% 99% 99% 100% Weight: 113.7 kg (250 lb 10.6 oz) Height: Wt Readings from Last 3 Encounters: 03/30/20 113.7 kg (250 lb 10.6 oz) 02/26/20 120.2 kg (265 lb) 11/15/19 123.4 kg (272 lb) Date 03/29/20 07 - 03/30/20 0659 03/30/20 0700 - 03/31/20 0659 Shift 3528-2648 8878-0706 24 Hour Total 9001-9555 9804-4826 24 Hour Total INTAKE P.O. 2200 2200 Shift Total(mL/kg) 2200(19.3) 2200(19.3) OUTPUT Urine(mL/kg/hr) 1650(1.2) 525(0.4) 2175(0.8) Shift Total(mL/kg) 1650(14.5) 525(4.6) 2175(19.1) NET 550 -525 25 Weight (kg) 114 113.7 113.7 113.7 113.7 113.7 PHYSICAL EXAM: General appearance - alert, well appearing, and in no distress Mental status - alert, oriented to person, place, and time Mouth - mucous membranes moist, pharynx normal without lesions Chest - clear to auscultation, wheezes in left lower lobe, rales or rhonchi, symmetric air entry Heart - normal rate, regular rhythm, normal S1, S2, no murmurs, rubs, clicks or gallops Abdomen - soft, nontender, nondistended, no masses or organomegaly Neurological - alert, oriented, normal speech, no focal findings or movement disorder noted Musculoskeletal - no joint tenderness, deformity or swelling Extremities - peripheral pulses normal, no pedal edema, no clubbing or cyanosis Skin - normal coloration and turgor, follicular rash to chest, no suspicious skin lesions noted PIV - dressing intact, no redness, swelling or tenderness noted LABS: Recent Labs Component Name 03/29/20 0024 03/27/20 0607 03/24/20 0029 03/18/20 2357 WBC 12.7* 12.5* 16.8* - 16.8* RBC 3.50* 3.27* 3.40* - 3.42* HGB 10.3* 9.7* 9.9* - 10.0* HCT 31.4* 29.8* 30.4* - 30.1* MCV 89.7 91.1 89.4 - 88.0 MCH 29.4 29.7 29.1 - 29.2 MCHC 32.8 32.6 32.6 - 33.2 PLTCOUNT 237 211 240 - 188 RDWSD 76.1* 78.3* 72.8* - 62.7* RDW 24.5* 24.5* 23.2* - 21.2* MPV 12.3 11.1 12.9* - - NRBCABS 1.08* 1.36* 0.74* - 1.83* NRBCAUTOPCT 8.5* 10.9* 4.4* - 10.9* NEUTPCT 81.1* 76.5* 81.6* - - LYMPHSPCT 10.1* 9.9* 7.2* - - MONOPCT 6.1 7.9 7.5 - - EOSPCT 0.5 1.8 0.6 - - BASOPCT 0.2 0.5 0.3 - - IMMGRANSPCT 2.0* 3.4* 2.8* - - NEUTABS 10.3* 9.6* 13.7* - 15.96* LYMPHS 1.3 1.2 1.2 - 0.17* MONO 0.78* 0.99* 1.25* - 0.50 EOS 0.06 0.23 0.10 - - BASO 0.02 0.06 0.05 - - TOTCELLCNT - - - - 100 - = values in this interval not displayed. Recent Labs Component Name 03/29/20 0024 03/27/20 0607 03/24/20 0029 BUN 20 CREATININE 0.8 0.9 0.9 NA 141 143 139 POTASSIUM 4.4 3.7 4.2 CL 99 104 100 CO2 30* 27 26 CALCIUM 8.6 8.6 8.8 PROT 5.8* 5.1* 5.5* ALB 2.6* 2.5* 2.6* TBILI 0.2 0.2 0.2 ALKPHOS 103 99 93 ALT 74* 73* 52 AST 26 27 20 ANIONGAP 16 16 17 BCR 24* 23 22 OSMOLALITY 295 299 292 AGRATIO 0.8* 1.0* 0.9* EGFR >60 >60 >60 Recent Labs Component Name 03/29/20 0024 03/27/20 0607 03/24/20 0029 MAGNESIUM 2.0 1.7 1.8 Recent Labs Component Name 03/29/20 0024 03/27/20 0607 03/24/20 0029 PHOS 4.4 4.8* 4.1 Recent Labs Component Name 03/29/20 0024 03/27/20 0607 03/24/20 0029 CRP 3.1* 2.1* 2.2* LDH Total Date Value Ref Range Status 03/29/2020 428 (H) 125 - 243 Units/L Final 03/27/2020 358 (H) 125 - 243 Units/L Final 03/24/2020 369 (H) 125 - 243 Units/L Final Recent Labs Component Name 03/29/20 0024 03/27/20 0607 03/24/20 0029 FERRITIN 626* 651* 658* Recent Labs Component Name 03/29/20 0024 03/27/20 0607 03/24/20 0029 ESR 74* 44* 53* Recurring Labs: Ig03/13/20 162, IVIG given. 03/22/20 - 509 CD4: 02/27/20-68 PATHOLOGY: BMBX (03/03/20): Path - Normocellular marrow with maturing trilineage hematopoiesis. NISHA Flow - NISHA Cyto - 46,XY FISH - negative INFECTIOUS: BCx (03/24/20): NGTD BCx (03/21/20): NGTD Covid swab (03/07/20): positive Bronch (03/06/20): COVID +, otherwise negative. Path reactive alveolar parenchyma with mild chronic inflammation RADIOLOGY: CXR (03/20/20): Bilateral interstitial and airspace opacities are mildly improved. No new areas of airspace consolidation observed. There is suggestion of small bilateral pleural effusions with adjacent atelectasis or airspace disease. Venous Duplex (03/03/20): Negative for DVT CT Chest (03/02/30): Altered distribution of prominent geographic GGO within upper and lower lung zones bilaterally. Re-demonstration of nonocclusive thrombus within left brachiocephalic vein which extends to the superior vena cava. ECHO (03/02/20): ~LVEF 68% ASSESSMENT/PLAN: JALIL LUIS is a 49 year old male, who is Day +162 (Day 0 is 10/20/19) of an autologous peripheral blood stem cell transplant with a 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 SYSTEMS: Marginal Zone Lymphoma in CR2 pre-transplant Schema: 5A Prep: BEAM, Cell count 10.4 x 10^6 CD34+cells/kg in 5 bags; day [address] A/P -- BMBx completed (03/03) -Transfusion threshold: Hgb > 7; Plt > 10; CMV +, transfusion pre meds: none needed -Engraftment: ANC day +9 (10/29/19); plt engraftment 11/03/19 (day +14) -given overall stability will check CBCw/Diff MWF OI prophylaxis: Bacterial:??Pen VK PJP:??Bactrim DS MWF Viral: Valtrex 500mg BID COVID -tested positive early January, asymptomatic at that time -Covid from bronch 03/07 and PROVISIONING ANALYST swab 03/07 both positive -received remdesivir 03/08 - 03/12 & convalescent plasma 03/10 -given overall stability will check labs every MWF at this point -following discussion with pulm pt will likely benefit from longer steroid taper than outlined in [facility] protocol -steroids switched to pred 03/18 then tapered to 60mg 03/20; >>start slow taper over 2-3 weeks on 03/23 >>taper by 10mg every 4 days>>03/30 30 mg daily, next taper 04/03 -continue ATC altuberol and O2 monitoring -stopped vit C and zinc per [facility]+ protocol -continue PO thiamine Hypoxia -overall stable at this time; continues on 55% CPAP alternating with HFNC -started long acting beta agonist/corticosteroid (symbicort) 03/22 -09/05 COVID, see above -intubated 03/06/20 -03/08/20 -Bronch'd 03/06/20>>COVID + otherwise unremarkable -continues to be labile, likely 2-3 weeks before significant improvement and would likely benefit from LTACH while tapering steroids and weaning oxygen Arthralgias--Resolved -new onset bilateral knee pain without erythema or swelling -unlikely DVT given current ACT -? 09/05 known COVID vs steroid taper -Celebrex 100mg BID Folliculitis -improving -keep skin clean and dry, will follow closely Right IJ venous clot 09/27/19 -Lovenox 120 mg Q12H while inpt -previously on Eliquis 5 mg BID -when discharged to LTAC given overall stability reasonable to resume Eliquis at that time Pertinent History: Persistent Fevers: reason for admission, completed 7D course of cem and vanco on 03/08/20 Anxiety/Depression- Lexapro 10 mg daily Restless Leg Syndrome - Requip 0.25 mg QHS Headaches tramadol 50 mg q8h. LP completed 03/01. Results negative for meningitis Discharge Planning: Patients preferred contact information: cell Caregiver: sister, girlfriend Preferred D/C Pharmacy: [facility] Intended lodging: home Referring provider: Cesar Tavares Disposition: Remain on 8S for O2 support, working on placement in LTAC given likely prolonged weaning of oxygen Keli Evie, AGNP-BC Blood and Marrow Transplant [facility] I independently interviewed and examined Jalil Luis with the BMT advanced practice provider. I reviewed my findings and assessment with the advanced practice provider and the patient. I reviewed the below note. Please see note for full detail. Day 162 Remains on O2, FiO2 high flow 65-70% Goal sats > 92% Continuing to improve Other VSS CoViD markers being followed QOD with lab draw Good po intake Albumin 2.0s Meds reviewed: Celebrex for arthralgias Lovenox full dose - decide when to stop, will likely keep on full dose post- discharge for 2-4 weeks Pred 30mg (tapered last 03/30) - wean by 10mg q4d PCN VK/Bactrim/VCV Requip Lexapro Thiamine until discharge, stop Zinc, Vit C stopped Scheduled albuterol At this point, Aurelio would be done with AC for UE DVT However, in light of CoViD and prolonged stay, would be good to keep some amt of AC going (see above plan) Decide upon transition when to repeat chest imaging Working with PT everyday Prior LTAC demanding large out of pocket payment emergency medical service coordinator working with new facility - need to confirm they will take COViD+ patient, swab 03/29 positive Hillary Apple MD MSc wreath and garland maker hand Interim Director, Division of Hematology/Oncology [facility] * Rylee Coreas, ROSEMARY - 03/29/2020 9:24 PM CDT Problem: Pain/Discomfort Goal: Patient exhibits reduced pain/discomfort as evidenced by pain scores Outcome: Ongoing Goal: Patient uses pharmacological and non-pharmacological pain management strategies. Outcome: Ongoing * Flori Mayers RN - 03/29/2020 7:24 PM CDT Problem: Pain/Discomfort Goal: Patient exhibits reduced pain/discomfort as evidenced by pain scores Outcome: Ongoing Goal: Patient uses pharmacological and non-pharmacological pain management strategies. Outcome: Ongoing Goal: Patient verbalizes acceptable level of pain relief and ability to engage in desired activity. Outcome: Ongoing Problem: Fall Risk Goal: Fall risk and fall related injury risk are minimized Outcome: Ongoing Problem: Isolation Goal: Prevent Transmission of Infection Outcome: Ongoing Problem: Isolation Goal: Prevent Transmission of Infection Outcome: Ongoing Problem: Anemia Goal: Patient able to verbalize preventions and signs & symptoms Outcome: Ongoing Problem: Protective Precautions Goal: Patient will remain free of Nosocomial Infections Outcome: Ongoing Problem: Nutrient: Increased nutrient needs (specify) Goal: Total intake will meet estimated nutrient needs Outcome: Ongoing Problem: Balance Goal: LTG - Patient will maintain standing and sitting balance to allow for completion of daily activities Outcome: Ongoing Problem: Balance Goal: LTG - Patient will maintain balance to allow for safe mobility Outcome: Ongoing Problem: Skin Integrity Goal: Skin integrity is maintained or improved Outcome: Ongoing Problem: Tobacco Use Goal: Inpatient tobacco-use cessation counseling participation Outcome: Ongoing Problem: Impaired Gas Exchange Goal: Resp rate/effort will be within specified limits Outcome: Ongoing * Inga Cortez, OT - 03/29/2020 2:17 PM CDT [facility] Physical Medicine and Rehabilitation Occupational Therapy Progress Note Patient: Jalil Luis [facility] Record Number: [id number] Date of : 1970 Age: [age] year old Co-Tx w/ PT Patient is COVID-19 positive. PPE donned by therapist throughout session - disposable gown, gloves, N95 mask, eye protection, faceshield, hair net, alva cover and shoe covers. Discharge Recommendation: Patient will benefit from multidisciplinary inpatient therapies (LTAC dueto profound 02 needs and BIPAP weaning) Precautions: FALLS SAFETY *COVID-19 +* Subjective: I gotta go! (referencing bathroom) At start of therapy session, patient found in bed and with no alarm. Pain: Patient has 0 out of 10 pain in body. Nurse notified. Activities of Daily Living Feeding:NT Grooming/Bathing: Stand By Assist --at sink post using toilet to wash hands after BM. Able to do task himself but needs help to manage BIPAP machine and lines Upper Extremity Dressing: Stand By Assist Lower Extremity Dressing: Stand By Assist --socks in bed Toileting/Transfers: Stand By Assist --desats (see vitals) Mobility: Assist device: none Supine to/from Sit:Independent Sit to/from Stand: Stand By Assist Bed to/from Chair: Stand By Assist Functional Mobility: From bed to toilet with Stand By Assist--only needs help to manage lines and BIPAP (pt is not weak, only very deconditioned) Splint Issued/Checked: none Splint Check Completed: N/A Balance: Static Sitting: good Dynamic Sitting: good Static Standing: good minus Dynamic Standing: good minus Vitals: Rest BP: 141/92 HR: 117 123 SpO2 SpO2 97% 100% Room Air L 02 55% Fi02 BIPAP on CPAP 65% Fi02 BIPAP on CPAP Ex/Gait/ Activity Without 02 BP: HR: SpO2 Room Air Ex/Gait/ Activity With 02 BP: HR: 154 142 145 136 159 140 138 140 142 139 172 169 160 160 159 164 173 154 146 137 130 130 126 SpO2 98%--going to the toilet (PEAK VALUES) 99%--2 mins on toilet (talkin and gruntin) 100%--3 mins 99%--4 mins 95%--wiping (PEAK VALUES) 97% 2 mins post esvin care 99%--3 mins 98%--4 mins (Fi02 60%) 98%--5 mins (Fi02 60%) 98%--6 mins (same) 93%--post washing hands and walking to bed (PEAK VALUES) 95%--1 min standing at HOB 95%--2 mins standing 95%--3 mins 96%--4 mins 96%--5 mins pt was laughing 93%--back to bed (PEAK VALUES) 95%--2 mins in bed 98%--3 mins 98%--4 mins 99%--5 mins 98%--6 mins 98%--7 mins L 02 65% Fi02 BIPAP on CPAP 60% Fi02 BIPAP ON CPAP Post Activity BP: 154/93 HR: 120 127 119 123 124 122 SpO2 SpO2 98%--in bed 55% Fi02--9 mins in bed 98%--10 mins in bed 99%--12 mins 99% 99%--Fi02 50% (in bed) 98%--3 mins L 02 Room Air 55% Fi02 Observations: Tolerated well on CPAP mode on 65% and 60% for activity. Pt is always agreeable to participating and trying out new ideas on the BIPAP> Activity tolerance: poor plus--transition times are becoming shorter. Pt is also able to recover much more quickly. Cognitive/Perceptual: A&Ox4; pt is always cooperative, pleasant, and easily participates. Not impulsive. Very motivated. Treatment/Therapeutic Exercise: Treatment session this date focused on ADL training Functional transfer training Endurance training Bed mobility Energy conservation Safety awareness HEP training Patient/Family Teaching: Exercise, Gait, Mobility and Self care Equipment Issued: none Update Treatment Plan/Goals : Pt continues to benefit from skilled OT to improve independence with activities of daily living, increase strength, endurance, range of motion and decrease pain. Short Term Goals: Patient will perform grooming?Standing at sink and With modified independence Patient will perform lower extremity dressing?With modified independence Patient will perform toileting?With modified independence Residential Goal:Patient to discharge to appropriate next level of inpatient care If patient is discharged from the facility, this note serves as a discharge note if further occupational therapy visits did not occur. Following therapy session, patient left in bed, with call light within reach, with RNFLORI aware and with RN/CP rehab cues written on white board. Inga Cortez OT * Amy Anderson, PT - 03/29/2020 2:10 PM CDT [facility] Physical Medicine and Rehabilitation PhysicalTherapy Progress Note ? Patient: Jalil Luis Med Record Number: [id number] Date of : 1970 Age: [age] year old ? Pt is COVID POSITIVE.??PT and OT wear goggles, N95 mask, alva covers, face shield, gown, and gloves during session.??Co Treat with OT due to medical complexity and level of skilled assist required, especially due to vitals status/O2 needs.? Discharge Recommendation:??Patient will benefit from multidisciplinary inpatient therapies.??Recommendation changed to LTAC due to current high level of O2 requirement and decreased endurance.? Subjective:? I am out of network for [facility], so we are looking into other options. ?? Patient currently using no assistive device. ?? Mental Status:??Alert, oriented x4. Pleasant and cooperative. Demos very good awareness of medical condition and O2 status/needs.? At start of therapy session, patient found??in bed and with no alarm. ?? Pain: Patient has??0??out of 10 pain. Nurse notified. ?? Weight Bearing Status:??no restrictions? Mobility: ?Rolling: not tested ?Supine to Sit:Independent ?Sit to Supine: Independent ?Sit to Stand:Independent ?Bed to Chair: not tested ?? Gait: ?Device:none ?Assistance: Stand By Assist??for line management ?Distance: 10ft, 15ft ?Deviations: ??Pt ambulates to bathroom, then to sink and back to standing at edge of bed.??Able to stand at bedside 5 mins prior to resting in bed. Pt occasionally holds doorframe for balance when ambulating but able to perform without steadying assist from therapist.? Balance: ?Static Sitting: good ?Dynamic sitting: good ?Static Standing: good minus ?Dynamic Standing: good minus ?? Stairs :??NT ?? Vitals: Rest BP: 141/92 HR: 117 ? 123 SpO2 ?? SpO2 97% ? 100% Room Air ?? L 02 ?? 55% Fi02 BIPAP on CPAP ?? 65% Fi02 BIPAP on CPAP Ex/Gait/ Activity Without 02 BP: ?? HR: ?? SpO2 ?? Room Air ?? Ex/Gait/ Activity With 02 BP: ?? HR: 154 ?? 142 ?? 145 136 159 ?? 140 138 140 142 139 172 ? 169 ?? 160 160 159 164 ?? 173 ?? 154 146 137 130 130 126 ? SpO2 98%--going to the toilet (PEAK VALUES) 99%--2 mins on toilet (talkin and gruntin) 100%--3 mins 99%--4 mins 95%--wiping (PEAK VALUES) 97% 2 mins post esvin care 99%--3 mins 98%--4 mins (Fi02 60%) 98%--5 mins (Fi02 60%) 98%--6 mins (same) 93%--post washing hands and walking to bed (PEAK VALUES) 95%--1 min standing at HOB 95%--2 mins standing 95%--3 mins 96%--4 mins 96%--5 mins pt was laughing 93%--back to bed (PEAK VALUES) 95%--2 mins in bed 98%--3 mins 98%--4 mins 99%--5 mins 98%--6 mins 98%--7 mins ? L 02 65% Fi02 BIPAP on CPAP ? 60% Fi02 BIPAP ON CPAP Post Activity BP: 154/93 HR: 120 ?? 127 ?? 119 123 124 122 SpO2 ?? SpO2 98%--in bed 55% Fi02--9 mins in bed 98%--10 mins in bed ?? 99%--12 mins 99% 99%--Fi02 50% (in bed) 98%--3 mins ? L 02 ?? Room Air 55% Fi02 Observations: Pt able to tolerate 60% FIO2 with activity this date and is able to progress standingtime to 5 mins after ambulating back to bed from bathroom. Pt noted to demonstrate improved recovertime following all tasks while on less FIO2. ? Activity Tolerance: Patient's activity tolerance: fair pt able to tolerate less FIO2 on BIPAP and requires less rest time following activity. ? Treatment/therapeutic Exercise: Pt donns socks from bed on 55%, then is bumped up to 65% FIO2 for initial transfer to toilet. He rests, then is bumped down to 60% FIO2 for rest of session. Pt able tostand for 5 mins at side of bed following bathroom activities. When in standing, pts R LE begins totwitch/shake with fatigue. Pt is able to maintain balance without assistance from therapist but therapist provides close guard in case of bucking (none noted). ?? Patient/Family Teaching: Exercise, Gait and Mobility, deep breathing Patient demonstrated Good understanding of instructions given. ? Short Term Goals: Goal Formation?With patient Patient will perform bed mobility:??Independent??(MET 03/15) Patient will transfer sit to/from stand:??Independent (MET 03/15) Patient will transfer bed to/from chair:??Independent (updated 03/15) Patient will ambulate??50??feet with Stand By Assist??and appropriate AD Patient will ascend/descend??10??steps: Stand By Assist??and hand rail assist?? Patient will perform home exercise program independently ?? Family Nurse Practitioner Goal(s): Patient to be independent/baseline with functional mobility and self care and be able to safely discharge to prior level of care ?? Update Treatment Plan: Continue with current PT plan of care to improve safety and functional mobility, especially focusing on progressing gait and endurance along with O2 saturations. ? If patient is discharged from the facility, this note serves as a discharge note if further physical therapy visits did not occur. ?? Following therapy session, patient left in bed, with call light within reach and with RNFlori aware. ?? Amy Anderson, PT 03/29/2020 * Alecia Aldana, RN - 03/29/2020 1:04 PM CDT CM called and spoke with [facility] [phone] regarding LTAC. She confirmed they have approved his stay at LTAC but have approved it at out of network costs. She has no information for CM to check onstatus of single case agreement. Spoke with Jessica with [facility]. They are still awaiting [facility] to call [facility] corporate to negotiate a single case agreement to treat him as an in-network case due to his special circumstances of his mother dying at [facility]. CM asked Jessica with LTAC to check with management about patient going to LTAC prior to this approval for in network cost and continuing to work on this while he is at LTAC or discuss if patient is okay with paying out of network costs for LTAC and if LTAC will accept this (CM spoke with patient andhe isn't sure exactly how much his out of pocket will cost). Addendum 2:30- patient notified CM that he will go to [facility] but just not [facility] emergency department. Louise with [facility] notified and they will have to submit for authorization under their NPI. Authorization shouldn't take as long as it has already been approved previously for LTAC level of care. [facility] asking to have new COVID test completed. Messaged BMT to make aware. CM continuing to follow Sissy Aldana RN, BSN Wrapper Stitcher [phone] * Keli Case APRN-ERIKA - 03/29/2020 6:49 AM CDT Autologous Hematopoietic Stem Cell Daily Note: PATIENT IDENTIFIERS: JALIL LUIS is a 49 year old male who is Day +161 (Day 0 is 10/20/19) of an autologous peripheral blood stem cell transplant with a 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 INTERVAL HISTORY: Awake and in bed this AM, afebrile Feels well this AM and verbalized increased strength and endurance level with activity. Working with PT/OT. On CPAP 55% at night, and alternating CPAP and HFNC @ 70%/50L during the day. Still has some SOB with activity but says its much better inflammatory markers slowly trending down, on pred taper Eating and drinking well, unsure of I/O accuracy Follicular rash to chest, improving per pt Had a BM yesterday Denies chest pain, dizziness of lightheadedness Denies F/C/V/N/D ROS: A comprehensive review of systems was negative except for: as noted above MEDICATIONS FOR CURRENT ENCOUNTER: SCHEDULED MEDICATIONS: 0.9% NaCl injection 3 mL, Intracatheter, q8h albuterol HFA (PROVENTIL;VENTOLIN;PROAIR) 108 (90 Base) MCG/ACT inhaler 2 puff, Inhalation, q4h artificial tears ophthalmic ointment, Each Eye, q8h budesonide-formoterol (SYMBICORT) 80-4.5 MCG/ACT inhaler 2 puff, Inhalation, BID celecoxib (CeleBREX) capsule 100 mg, Oral, BID enoxaparin (LOVENOX) injection 120 mg, Subcutaneous, q12h escitalopram (LEXAPRO) tablet 10 mg, Oral, QDAY pantoprazole EC (PROTONIX) tablet 40 mg, Oral, QDAY penicillin V potassium (VEETIDS) solution 250 mg, Oral, q12h predniSONE (DELTASONE) tablet 40 mg, Oral, QDAY WITH BREAKFAST rOPINIRole (REQUIP) tablet 0.25 mg, Oral, AT BEDTIME sulfamethoxazole-trimethoprim (BACTRIM DS; SEPTRA DS) 800-160 MG tablet 1 tablet, Oral, MON, WED AND FRI thiamine (VITAMIN B-1) tablet 200 mg, Oral, q12h traMADol (ULTRAM) tablet 50 mg, Oral, q8h valACYclovir (VALTREX) tablet 500 mg, Oral, BID vitamin D3-cholecalciferol (CHOLECALCIFEROL) 25 MCG (1000 UNITS) tablet 2,000 Units, Oral, QDAY ?? zinc gluconate tablet 50 mg, Oral, QDAY ?? CONTINUOUS MEDICATIONS: PRN MEDICATIONS: 0.9% NaCl injection 1-10 mL, Intracatheter, PRN acetaminophen (TYLENOL) tablet 325 mg, Oral, q4h PRN magnesium sulfate 2 g in 50 mL bolus, Intravenous, PRN ondansetron (disintegrating) (ZOFRAN ODT) tablet 4 mg, Oral, q8h PRN ondansetron (ZOFRAN) injection 4 mg, Intravenous, q8h PRN oxyCODONE (immediate release) (ROXICODONE) tablet 5 mg, Oral, q4h PRN prochlorperazine (COMPAZINE) injection 10 mg, Intravenous, q6h PRN prochlorperazine (COMPAZINE) tablet 5 mg, Oral, q8h PRN ?? saline nasal spray (OCEAN; BABY AYR) 0.65 % nasal spray 2 spray, Each Nostril, q2h PRN VITALS: Vitals: 03/28/20 1602 03/28/20 2000 03/29/20 0017 03/29/20 0427 BP: 139/95 130/91 122/86 139/80 Pulse: 102 102 97 98 Resp: Temp: 97.9 ??F 98.7 ??F 98.3 ??F 98.2 ??F SpO2: 97% 100% 99% 100% Weight: Height: Wt Readings from Last 3 Encounters: 03/25/20 114 kg (251 lb 5.2 oz) 02/26/20 120.2 kg (265 lb) 11/15/19 123.4 kg (272 lb) Date 03/28/20699 - 03/29/20 0659 03/29/20 07 - 03/30/20 0659 Shift 5906-6548 6742-5274 24 Hour Total 5659-6800 3489-3245 24 Hour Total INTAKE P.O. 2520 2520 I.V.(mL/kg/hr) 102(0.1) 102 Shift Total(mL/kg) 2622(23) 2622(23) OUTPUT Urine(mL/kg/hr) 2260(1.7) 850 3110 Shift Total(mL/kg) 2260(19.8) 850(7.5) 3110(27.3) NET 362 -828 -152 Weight (kg) 114 114 114 114 114 114 PHYSICAL EXAM: General appearance - alert, well appearing, and in no distress Mental status - alert, oriented to person, place, and time Chest -Diminished but clear to auscultation, no wheezes, rales or rhonchi, symmetric air entry Heart - normal rate, regular rhythm, normal S1, S2, no murmurs, rubs, clicks or gallops Abdomen - soft, nontender, nondistended, no masses or organomegaly Neurological - alert, oriented, normal speech, no focal findings or movement disorder noted Musculoskeletal - no joint tenderness, deformity or swelling Extremities - peripheral pulses normal, no pedal edema, no clubbing or cyanosis Skin - normal coloration and turgor, follicular rash to chest, no suspicious skin lesions noted PIV - Intact, no redness, warmth or tenderness LABS: Recent Labs Component Name 03/29/20 0024 03/27/20 0607 03/24/20 0029 03/18/20 2357 WBC 12.7* 12.5* 16.8* - 16.8* RBC 3.50* 3.27* 3.40* - 3.42* HGB 10.3* 9.7* 9.9* - 10.0* HCT 31.4* 29.8* 30.4* - 30.1* MCV 89.7 91.1 89.4 - 88.0 MCH 29.4 29.7 29.1 - 29.2 MCHC 32.8 32.6 32.6 - 33.2 PLTCOUNT 237 211 240 - 188 RDWSD 76.1* 78.3* 72.8* - 62.7* RDW 24.5* 24.5* 23.2* - 21.2* MPV 12.3 11.1 12.9* - - NRBCABS 1.08* 1.36* 0.74* - 1.83* NRBCAUTOPCT 8.5* 10.9* 4.4* - 10.9* NEUTPCT 81.1* 76.5* 81.6* - - LYMPHSPCT 10.1* 9.9* 7.2* - - MONOPCT 6.1 7.9 7.5 - - EOSPCT 0.5 1.8 0.6 - - BASOPCT 0.2 0.5 0.3 - - IMMGRANSPCT 2.0* 3.4* 2.8* - - NEUTABS 10.3* 9.6* 13.7* - 15.96* LYMPHS 1.3 1.2 1.2 - 0.17* MONO 0.78* 0.99* 1.25* - 0.50 EOS 0.06 0.23 0.10 - - BASO 0.02 0.06 0.05 - - TOTCELLCNT - - - - 100 - = values in this interval not displayed. Recent Labs Component Name 03/29/20 0024 03/27/20 0607 03/24/20 0029 BUN 20 CREATININE 0.8 0.9 0.9 NA 141 143 139 POTASSIUM 4.4 3.7 4.2 CL 99 104 100 CO2 30* 27 26 CALCIUM 8.6 8.6 8.8 PROT 5.8* 5.1* 5.5* ALB 2.6* 2.5* 2.6* TBILI 0.2 0.2 0.2 ALKPHOS 103 99 93 ALT 74* 73* 52 AST 26 27 20 ANIONGAP 16 16 17 BCR 24* 23 22 OSMOLALITY 295 299 292 AGRATIO 0.8* 1.0* 0.9* EGFR >60 >60 >60 Recent Labs Component Name 03/29/20 0024 03/27/20 0607 03/24/20 0029 MAGNESIUM 2.0 1.7 1.8 Recent Labs Component Name 03/29/20 0024 03/27/20 0607 03/24/20 0029 PHOS 4.4 4.8* 4.1 Recent Labs Component Name 03/29/20 0024 03/27/20 0607 03/24/20 0029 CRP 3.1* 2.1* 2.2* LDH Total Date Value Ref Range Status 03/29/2020 428 (H) 125 - 243 Units/L Final 03/27/2020 358 (H) 125 - 243 Units/L Final 03/24/2020 369 (H) 125 - 243 Units/L Final Recent Labs Component Name 03/29/20 0024 03/27/20 0607 03/24/20 0029 FERRITIN 626* 651* 658* Recent Labs Component Name 03/29/20 0024 03/27/20 0607 03/24/20 0029 ESR 74* 44* 53* Recurring Labs: Ig03/13/20 162, IVIG given. 03/22/20 - 509 CD4: 02/27/20-68 PATHOLOGY: BMBX (03/03/20): Path - Normocellular marrow with maturing trilineage hematopoiesis. NISHA Flow - NISHA Cyto - 46,XY FISH - negative INFECTIOUS: BCx (03/24/20): NGTD BCx (03/21/20): NGTD Covid swab (03/07/20): positive Bronch (03/06/20): COVID +, otherwise negative. Path reactive alveolar parenchyma with mild chronic inflammation RADIOLOGY: CXR (03/20/20): Bilateral interstitial and airspace opacities are mildly improved. No new areas of airspace consolidation observed. There is suggestion of small bilateral pleural effusions with adjacent atelectasis or airspace disease. Venous Duplex (03/03/20): Negative for DVT CT Chest (03/02/30): Altered distribution of prominent geographic GGO within upper and lower lung zones bilaterally. Re-demonstration of nonocclusive thrombus within left brachiocephalic vein which extends to the superior vena cava. ECHO (03/02/20): ~LVEF 68% ASSESSMENT/PLAN: JALIL LUIS is a 49 year old male, who is Day +161 (Day 0 is 10/20/19) of an autologous peripheral blood stem cell transplant with a 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 SYSTEMS: Marginal Zone Lymphoma in CR2 pre-transplant Schema: 5A Prep: BEAM, Cell count 10.4 x 10^6 CD34+cells/kg in 5 bags; day [address] A/P -- BMBx completed (03/03) -Transfusion threshold: Hgb > 7; Plt > 10; CMV +, transfusion pre meds: none needed -Engraftment: ANC day +9 (10/29/19); plt engraftment 11/03/19 (day +14) -given overall stability will check CBCw/Diff MWF OI prophylaxis: Bacterial:??Pen VK PJP:??Bactrim DS MWF Viral: Valtrex 500mg BID COVID -tested positive early January, asymptomatic at that time -Covid from bronch 03/07 and PROVISIONING ANALYST swab 03/07 both positive -received remdesivir 03/08 - 03/12 & convalescent plasma 03/10 -given overall stability will check labs every MWF at this point -following discussion with pulm pt will likely benefit from longer steroid taper than outlined in [facility] protocol -steroids switched to pred 03/18 then tapered to 60mg 03/20; >>start slow taper over 2-3 weeks on 03/23 >>taper by 10mg every 4 days>>03/26 40 mg daily, next taper 03/30/20 -continue ATC altuberol and O2 monitoring -stopped vit C today as he has been on well over 7 days as outlined in [facility]+ -continue PO thiamine Hypoxia -overall stable at this time; continues on 55% CPAP alternating with HFNC -started long acting beta agonist/corticosteroid (symbicort) 03/22 -2 COVID, see above -intubated 03/06/20 -03/08/20 -Bronch'd 03/06/20>>COVID + otherwise unremarkable -continues to be labile, likely 2-3 weeks before significant improvement and would likely benefit from LTACH while tapering steroids and weaning oxygen Arthralgias--Resolved -new onset bilateral knee pain without erythema or swelling -unlikely DVT given current ACT -? 09/05 known COVID vs steroid taper -Celebrex 100mg BID Folliculitis -improving -keep skin clean and dry, will follow closely Right IJ venous clot 09/27/19 -Lovenox 120 mg Q12H while inpt -previously on Eliquis 5 mg BID -when discharged to LTAC given overall stability reasonable to resume Eliquis at that time Pertinent History: Persistent Fevers: reason for admission, completed 7D course of cem and vanco on 03/08/20 Anxiety/Depression- Lexapro 10 mg daily Restless Leg Syndrome - Requip 0.25 mg QHS Headaches tramadol 50 mg q8h. LP completed 03/01. Results negative for meningitis Discharge Planning: Patients preferred contact information: cell Caregiver: sister, girlfriend Preferred D/C Pharmacy: [email or web address] Intended lodging: home Referring provider: Cesar Tavares Disposition: Remain on 8S for O2 support, working on placement in LTAC given likely prolonged weaning of oxygen Keli Case, AGNP-BC Blood and Marrow Transplant [facility] I independently interviewed and examined Jalil Luis with the BMT advanced practice provider. I reviewed my findings and assessment with the advanced practice provider and the patient. I reviewed the below note. Please see note for full detail. Day 161 Remains on O2, FiO2 high flow 70% Goal sats > 92% Continuing to improve Other VSS CoViD markers being followed QOD with lab draw Good po intake Albumin 2.0s Meds reviewed: Celebrex for arthralgias Lovenox full dose - decide when to stop, will likely keep on full dose post- discharge for 2-4 weeks Pred 40mg (tapered last 03/26) - wean by 10mg q4d PCN VK/Bactrim/VCV Requip Lexapro Thiamine until discharge, stop Zinc, Vit C stopped Scheduled albuterol At this point, Aurelio would be done with AC for UE DVT However, in light of CoViD and prolonged stay, would be good to keep some amt of AC going (see above plan) Decide upon transition when to repeat chest imaging Working with PT everyday SW working on single case agreement with LTAC Hillary Apple MD MSc wreath and garland maker hand Interim Director, Division of Hematology/Oncology [facility] * Katty Zuniga RN - 03/29/2020 3:50 AM CDT Problem: Fall Risk Goal: Fall risk and fall related injury risk are minimized Outcome: Ongoing Problem: Isolation Goal: Prevent Transmission of Infection Outcome: Ongoing * Jocelin Griggs RD/DAE - 03/28/2020 12:44 PM CDT Clinical Nutrition Comments: Pt rescreened. COVID positive, information obtained from EMR. Intakes remain adequate, consuming 100% of meals and >100% of snacks. No GI issues noted, last BM 03/27. No nutrition interventions warranted at this time. RD will continue to monitor. Diet order accuracy Current diet order: Regular Nutrition recommendation: agree with current nutrition order P.O.Intake for the past 48 hrs:% Meal Taken Av % Min: 100 % Max: 100 % Height: 5' 7.01 (170.2 cm) Weight: 251 lb 5.2 oz (114 kg) Body mass index is 39.35 kg/m??.BMI Range: Morbidly Obese Class 3 Laboratory values reviewed. Medications noted. No acute nutrition issues identified at this time. Recommendations: Continue current diet Monitor nutrition per nutrition guidelines. Jocelin Griggs MA, RD, NIKON Pager: [phone] * Amy Anderson, PT - 03/28/2020 9:20 AM CDT [facility] Physical Medicine and Rehabilitation PhysicalTherapy Progress Note Patient: Jalil Luis [facility] Record Number: [id number] Date of : 1970 Age: [age] year old Pt is COVID POSITIVE.??PT and OT wear goggles, N95 mask, alva covers, face shield, gown, and gloves during session.??Co Treat with OT due to medical complexity and level of skilled assist required, especially due to vitals status/O2 needs.? Discharge Recommendation:??Patient will benefit from multidisciplinary inpatient therapies.??Recommendation changed to LTAC due to current high level of O2 requirement and decreased endurance.? Subjective:? I have been wearing it (HFNC) since I ate this morning. ?? Patient currently using no assistive device. ?? Mental Status:??Alert, oriented x4. Pleasant and cooperative.? At start of therapy session, patient found??in bed and with no alarm. ?? Pain: Patient has??0??out of 10 pain. Nurse notified. ?? Weight Bearing Status:??no restrictions? Mobility: ?Rolling: not tested ?Supine to Sit:Independent ?Sit to Supine: Independent ?Sit to Stand:Independent ?Bed to Chair: not tested ?? Gait: ?Device:none ?Assistance: Stand By Assist??for line management ?Distance: 10ft, 15ft ?Deviations: ??Pt ambulates to bathroom, then to sink and back to standing at edge of bed.??Able to stand at bedside prior to resting in bed. Pt occasionally holds doorframe for balance when ambulating but able to perform without steadying assist from therapist.? Balance: ?Static Sitting: good ?Dynamic sitting: good ?Static Standing: good minus ?Dynamic Standing: good minus ?? Stairs :??NT Vitals: (*Assess the 3 levels of oxygen saturations both for room air and 02 unless rest on room air is 88% or less). Rest BP: 148/103 HR: 11-121 122-135 Sp02 Sp02 97-100% at rest in bed 90-92% in bed talking Room Air L O2 HFNC 70% FIO2 50L Ex/Gait/Activity Without 02 BP: HR: Sp02 Room Air Ex/Gait/Activity With 02 BP: HR: 140 130 120 115 116 115 117 149 145 145 135 135 137 136 140 145 149 145 150 147 168 161 155 147 143 139 170 168 138 158 150 156 145 140 132 131 123 124 136 121 123 120 Sp02 80% immediately post donning socks in bed 82% 1 min post donning socks 84% 2 min post donning socks 91% 3 min post donning socks 96% 4 min post donning socks 98% 5 min post donning socks 98% 6 min post donning socks 88% immediately post transfer to toilet 82% 1 min post transfer 87% 2 min post transfer now on BIPAP 94% 3 min post transfer 96% 3.5 min post transfer 97% 4 min post transfer 98% 5 min post transfer 97% 6 min post transfer (talking) 94% after taking BIPAP off to readjust 97% 9 min post transfer, 1 min after adjusting BIPAP 96% 11 min post transfer 98% 12 min post transfer, (laughing, talking) 96% 14 min post transfer 89% immediately post esvin care 92% 1 min post esvin care 93% 2 min post esvin care 95% 3 min post esvin care 96% 4 min post esvin care 97% 5 min post esvin care 89% Immediately post washing hands at sink, standing 91% 1 min post wash hands 93% 2 min post wash hands 94% 3 min post wash hands 94% 4 min post wash hands 92% immediately after transfer back to bed 95% 1 min transfer back to bed 98% 2 min post transfer 98% 3 min post transfer 100% 4 min post transfer 100% 5 min post transfer 98% 6 min post transfer 99% 7 min post transfer (talking) 98% 8 min post transfer 99% 10 min post transfer 99% 12 min post transfer L O2 HFNC 70% FIO2 100L BIPAP on CPAP mode 65% Post Activity BP: HR: 126 124 120 121 123 124 124 Sp02 Sp02 93% 93% 95% 96% 96% 97% 96% L O2 Room Air HFNC 70% 50L Observations: Pt on HFNC 70% when therapist arrives, reports he has been wearing HFNC since 7am. With talking to therapist, SPO2 does drop while at rest. Pt donns socks while wearing HFNC (previously, all activity has been done on BIPAP) and able to recover HR and SPO2 to within 5 mins. Pt does have increased reports of shortness of breath on HFNC. He sits up on side of bed and transfers to toilet on HFNC; must transfer to BIPAP machine due to shortness of breath and recovers very quickly on BIPAP at 65% (yesterday and with previous sessions pt was at 70% FIO2). Pt remains on BIPAP 65% FIO2 for rest of session. After washing hands and sink, pt stands at side of bed for 4 min 10 seconds. At end of session at rest in bed, pt transferred to HFNC 70% FIO2 and 50L, VSS. Activity Tolerance: Patient's activity tolerance: fair minus to fair; Pt able to tolerate small activity while on HFNC,able to tolerate less FIO2 while on BIPAP. Treatment/therapeutic Exercise: Pt donns socks from bed on HFNC, then transfer to bathroom on HFNC;requires switch to BIPAP and overall requires additional time for recovery on BIPAP. He is able to perform esvin care, rest, wash hands at sink, then stand at side of bed for 4 min 10 seconds (more than 2 mins 30 sec yesterday). Patient/Family Teaching: Exercise, Gait and Mobility, deep breathing Patient demonstrated Good understanding of instructions given. Short Term Goals: Goal Formation?With patient Patient will perform bed mobility:??Independent??(MET 03/15) Patient will transfer sit to/from stand:??Independent (MET 03/15) Patient will transfer bed to/from chair:??Independent (updated 03/15) Patient will ambulate??50??feet with Stand By Assist??and appropriate AD Patient will ascend/descend??10??steps: Stand By Assist??and hand rail assist?? Patient will perform home exercise program independently ?? Family Nurse Practitioner Goal(s): Patient to be independent/baseline with functional mobility and self care and be able to safely discharge to prior level of care Update Treatment Plan: Continue with current PT plan of care to improve safety and functional mobility, especially focusing on progressing gait and endurance along with O2 saturations. If patient is discharged from the facility, this note serves as a discharge note if further physical therapy visits did not occur. Following therapy session, patient left in bed, with call light within reach and with RNFlori aware. Amy Anderson PT 03/28/2020 * Inga Cortez, OT - 03/28/2020 9:18 AM CDT [facility] Physical Medicine and Rehabilitation Occupational Therapy Progress Note Patient: Jalil Luis [facility] Record Number: [id number] Date of : 1970 Age: [age] year old Co-Tx w/ PT Patient is COVID-19 positive. PPE donned by therapist throughout session - disposable gown, gloves, N95 mask, eye protection, faceshield, hair net, alva cover and shoe covers. Discharge Recommendation: Patient will benefit from multidisciplinary inpatient therapies (LTAC) Precautions: FALLS SAFETY *COVID-19 +* Subjective: You girls are early this morning! At start of therapy session, patient found in bed and with no alarm. Pain: Patient has 0 out of 10 pain in body. Nurse notified. Activities of Daily Living Feeding:NT Grooming/Bathing: Stand By Assist --standing at sink Upper Extremity Dressing: Stand by Assist--in bed Lower Extremity Dressing: Stand By Assist--socks in bed (close monitoring ov vitals. Was on HFNC for this part) Toileting/Transfers: Stand By Assist --able to complete esvin care himself, but needs rest breaks (see vitals below) Mobility: Assist device: none Supine to/from Sit:Independent Sit to/from Stand: Independent Bed to/from Chair: Stand By Assist Functional Mobility: From bed to toilet to sink to bed with Stand By Assist Splint Issued/Checked: none Splint Check Completed: N/A Balance: Static Sitting: good Dynamic Sitting: good Static Standing: good minus Dynamic Standing: good minus ?? Vitals: (*Assess the 3 levels of oxygen saturations both for room air and 02 unless rest on room air is 88% or less). Rest BP: 148/103 HR: 11-121 122-135 Sp02 ?? Sp02 97-100% at rest in bed 90-92% in bed talking Room Air ?? L O2 ?? HFNC 70% FIO2 50L Ex/Gait/Activity Without 02 BP: ?? HR: ?? Sp02 ?? Room Air ?? Ex/Gait/Activity With 02 BP: ?? HR: 140 130 120 115 116 115 117 149 145 ?? 145 135 135 137 136 140 145 149 145 150 147 168 161 155 147 143 139 170 168 138 158 150 156 145 140 132 131 123 124 136 121 123 120 Sp02 80% immediately post donning socks in bed 82% 1 min post donning socks 84% 2 min post donning socks 91% 3 min post donning socks 96% 4 min post donning socks 98% 5 min post donning socks 98% 6 min post donning socks 88% immediately post transfer to toilet 82% 1 min post transfer ?? 87% 2 min post transfer now on BIPAP 94% 3 min post transfer 96% 3.5 min post transfer 97% 4 min post transfer 98% 5 min post transfer 97% 6 min post transfer (talking) 94% after taking BIPAP off to readjust 97% 9 min post transfer, 1 min after adjusting BIPAP 96% 11 min post transfer 98% 12 min post transfer, (laughing, talking) 96% 14 min post transfer 89% immediately post esvin care 92% 1 min post esvin care 93% 2 min post esvin care 95% 3 min post esvin care 96% 4 min post esvin care 97% 5 min post esvin care 89% Immediately post washing hands at sink, standing 91% 1 min post wash hands 93% 2 min post wash hands 94% 3 min post wash hands 94% 4 min post wash hands 92% immediately after transfer back to bed 95% 1 min transfer back to bed 98% 2 min post transfer 98% 3 min post transfer 100% 4 min post transfer 100% 5 min post transfer 98% 6 min post transfer 99% 7 min post transfer (talking) 98% 8 min post transfer 99% 10 min post transfer 99% 12 min post transfer L O2 HFNC 70% FIO2 100L ? BIPAP on CPAP mode 65% Post Activity BP: ?? HR: 126 124 120 121 123 124 124 Sp02 ?? Sp02 93% 93% 95% 96% 96% 97% 96% L O2 ?? Room Air HFNC 70% 50L Observations: Pt on HFNC 70% when therapist arrives, reports he has been wearing HFNC since 7am. With talking to therapist, SPO2 does drop while at rest. Pt donns socks while wearing HFNC (previously, all activity has been done on BIPAP) and able to recover HR and SPO2 to within 5 mins. Pt does have increased reports of shortness of breath on HFNC. He sits up on side of bed and transfers to toilet on HFNC; must transfer to BIPAP machine due to shortness of breath and recovers very quickly on BIPAP at 65% (yesterday and with previous sessions pt was at 70% FIO2). Pt remains on BIPAP 65% FIO2 for rest of session. After washing hands and sink, pt stands at side of bed for 4 min 10 seconds. At end of session at rest in bed, pt transferred to HFNC 70% FIO2 and 50L, VSS. Activity tolerance: poor plus--is consistently improving and is close to fair minus. See vitals section. Cognitive/Perceptual: A&Ox4; pt is pleasant and cooperative. Followed 100% of commands. Always engaged and pleasant to work with. Treatment/Therapeutic Exercise: Treatment session this date focused on ADL training Functional transfer training Endurance training Bed mobility Energy conservation Safety awareness HEP training Patient/Family Teaching: Exercise, Gait, Mobility and Self care Equipment Issued: none Update Treatment Plan/Goals : Pt continues to benefit from skilled OT to improve independence with activities of daily living, increase strength, endurance, range of motion and decrease pain. Short Term Goals: Patient will perform grooming?Standing at sink and With modified independence Patient will perform lower extremity dressing?With modified independence Patient will perform toileting?With modified independence ?? Residential Goal:Patient to discharge to appropriate next level of inpatient care If patient is discharged from the facility, this note serves as a discharge note if further occupational therapy visits did not occur. Following therapy session, patient left in bed, with call light within reach, with Flori RILEY aware and with RN/CP rehab cues written on white board. Inga Cortez OT * Alecia Aldana RN - 03/28/2020 9:07 AM CDT Message left with Jessica at [facility] to follow up on status of authorization. Addendum- [facility] corporate is waiting for a return call from [facility] to discuss negotiation for contract. CM to follow Sissy Aldana RN, BSN Wrapper Stitcher [phone] * Asim Ramirez APRN-SEWING DEMONSTRATOR - 03/28/2020 7:14 AM CDT Autologous Hematopoietic Stem Cell Daily Note: PATIENT IDENTIFIERS: JALIL LUIS is a 49 year old male who is Day +160 (Day 0 is 10/20/19) of an autologous peripheral blood stem cell transplant with a 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 INTERVAL HISTORY: Doing well this morning Breathing feels good Denies SOB or difficulty breathing Continues on CPAP at night and alternating with HFNC during the day Remains on CPAP 50% and HFNC 70%/50L Denies N/V/F/C/D Reports stable bowel and bladder Denies COOPER Denies joint of knee pain Continues to work with PT ROS: A comprehensive review of systems was negative except for: as noted above MEDICATIONS FOR CURRENT ENCOUNTER: SCHEDULED MEDICATIONS: 0.9% NaCl injection 3 mL, Intracatheter, q8h albuterol HFA (PROVENTIL;VENTOLIN;PROAIR) 108 (90 Base) MCG/ACT inhaler 2 puff, Inhalation, q4h artificial tears ophthalmic ointment, Each Eye, q8h budesonide-formoterol (SYMBICORT) 80-4.5 MCG/ACT inhaler 2 puff, Inhalation, BID celecoxib (CeleBREX) capsule 100 mg, Oral, BID enoxaparin (LOVENOX) injection 120 mg, Subcutaneous, q12h escitalopram (LEXAPRO) tablet 10 mg, Oral, QDAY pantoprazole EC (PROTONIX) tablet 40 mg, Oral, QDAY penicillin V potassium (VEETIDS) solution 250 mg, Oral, q12h predniSONE (DELTASONE) tablet 40 mg, Oral, QDAY WITH BREAKFAST rOPINIRole (REQUIP) tablet 0.25 mg, Oral, AT BEDTIME sulfamethoxazole-trimethoprim (BACTRIM DS; SEPTRA DS) 800-160 MG tablet 1 tablet, Oral, MON, WED AND FRI thiamine (VITAMIN B-1) tablet 200 mg, Oral, q12h traMADol (ULTRAM) tablet 50 mg, Oral, q8h valACYclovir (VALTREX) tablet 500 mg, Oral, BID vitamin D3-cholecalciferol (CHOLECALCIFEROL) 25 MCG (1000 UNITS) tablet 2,000 Units, Oral, QDAY ?? zinc gluconate tablet 50 mg, Oral, QDAY ?? CONTINUOUS MEDICATIONS: PRN MEDICATIONS: 0.9% NaCl injection 1-10 mL, Intracatheter, PRN acetaminophen (TYLENOL) tablet 325 mg, Oral, q4h PRN magnesium sulfate 2 g in 50 mL bolus, Intravenous, PRN ondansetron (disintegrating) (ZOFRAN ODT) tablet 4 mg, Oral, q8h PRN ondansetron (ZOFRAN) injection 4 mg, Intravenous, q8h PRN oxyCODONE (immediate release) (ROXICODONE) tablet 5 mg, Oral, q4h PRN prochlorperazine (COMPAZINE) injection 10 mg, Intravenous, q6h PRN prochlorperazine (COMPAZINE) tablet 5 mg, Oral, q8h PRN ?? saline nasal spray (OCEAN; BABY AYR) 0.65 % nasal spray 2 spray, Each Nostril, q2h PRN VITALS: Vitals: 03/27/20 1617 03/27/20200903/28/20 0009 03/28/20 0402 BP: 132/83 115/81 123/79 126/89 Pulse: (!) 110 95 94 95 Resp: Temp: 97.8 ??F 97.9 ??F 97.8 ??F 98 ??F SpO2: 97% 100% 98% 99% Weight: Height: Wt Readings from Last 3 Encounters: 03/25/20 114 kg (251 lb 5.2 oz) 02/26/20 120.2 kg (265 lb) 11/15/19 123.4 kg (272 lb) Date 03/27/20699 - 03/28/20 0603/28/20699 - 03/29/20 0659 Shift 8979-0974 5598-6125 24 Hour Total 1294-8654 9523-7848 24 Hour Total INTAKE P.O. 840 840 I.V.(mL/kg/hr) 189.3(0.1) 187.3(0.1) 376.6(0.1) Shift Total(mL/kg) 1029.3(9) 187.3(1.6) 1216.6(10.7) OUTPUT Urine(mL/kg/hr) 1550(1.1) 1550(0.6) Shift Total(mL/kg) 1550(13.6) 1550(13.6) NET -520.7 187.3 -333.4 Weight (kg) 114 114 114 114 114 114 PHYSICAL EXAM: General appearance - alert, well appearing, in no distress, and acyanotic in no respiratory distress Mental status - alert, oriented to person, place, and time, normal mood, behavior, speech, dress, motor activity, and thought processes, affect appropriate to mood Mouth - mucous membranes moist, pharynx normal without lesions Chest - clear to auscultation, no wheezes, rales or rhonchi, symmetric air entry, no tachypnea, retractions or cyanosis Heart - normal rate and regular rhythm, no murmurs noted Abdomen - soft, nontender, nondistended, no masses or organomegaly, bowel sounds normal Neurological - alert, oriented, normal speech, no focal findings or movement disorder noted Musculoskeletal - no joint tenderness, deformity or swelling, no muscular tenderness noted Extremities - peripheral pulses normal, no pedal edema, no clubbing or cyanosis Skin - folliculitis type rash to chest improving, no suspicious skin lesions noted PIV - dressing dry, clean, and intact LABS: Recent Labs Component Name 03/27/20 0607 03/24/20 0029 03/22/20 0046 03/18/20 2357 WBC 12.5* 16.8* 14.3* - 16.8* RBC 3.27* 3.40* 3.42* - 3.42* HGB 9.7* 9.9* 10.0* - 10.0* HCT 29.8* 30.4* 30.2* - 30.1* MCV 91.1 89.4 88.3 - 88.0 MCH 29.7 29.1 29.2 - 29.2 MCHC 32.6 32.6 33.1 - 33.2 PLTCOUNT 211 240 205 - 188 RDWSD 78.3* 72.8* 69.9* - 62.7* RDW 24.5* 23.2* 22.3* - 21.2* MPV 11.1 12.9* 12.4 - - NRBCABS 1.36* 0.74* 0.58* - 1.83* NRBCAUTOPCT 10.9* 4.4* 4.1* - 10.9* NEUTPCT 76.5* 81.6* 83.6* - - LYMPHSPCT 9.9* 7.2* 6.8* - - MONOPCT 7.9 7.5 5.3 - - EOSPCT 1.8 0.6 0.5 - - BASOPCT 0.5 0.3 0.3 - - IMMGRANSPCT 3.4* 2.8* 3.5* - - NEUTABS 9.6* 13.7* 12.0* - 15.96* LYMPHS 1.2 1.2 1.0 - 0.17* MONO 0.99* 1.25* 0.75* - 0.50 EOS 0.23 0.10 0.07 - - BASO 0.06 0.05 0.04 - - TOTCELLCNT - - - - 100 - = values in this interval not displayed. Recent Labs Component Name 03/27/20 0607 03/24/20 0029 03/22/20 0046 BUN 21 20 15 CREATININE 0.9 0.9 0.8 NA 143 139 140 POTASSIUM 3.7 4.2 4.2 CL 104 100 98 CO2 27 26 32* CALCIUM 8.6 8.8 8.4 PROT 5.1* 5.5* 5.4* ALB 2.5* 2.6* 2.4* TBILI 0.2 0.2 0.2 ALKPHOS 99 93 86 ALT 73* 52 46 AST 27 20 19 ANIONGAP 16 17 14 BCR 23 22 19 OSMOLALITY 299 292 291 AGRATIO 1.0* 0.9* 0.8* EGFR >60 >60 >60 Recent Labs Component Name 03/27/20 0607 03/24/20 0029 03/22/20 0046 MAGNESIUM 1.7 1.8 2.0 Recent Labs Component Name 03/27/20 0607 03/24/20 0029 03/22/20 0046 PHOS 4.8* 4.1 3.9 Recent Labs Component Name 03/27/20 0607 03/24/20 0029 03/22/20 0046 CRP 2.1* 2.2* 3.0* LDH Total Date Value Ref Range Status 03/27/2020 358 (H) 125 - 243 Units/L Final 03/24/2020 369 (H) 125 - 243 Units/L Final 03/22/2020 390 (H) 125 - 243 Units/L Final Recent Labs Component Name 03/27/20 0607 03/24/20 0029 03/22/20 0046 FERRITIN 651* 658* 737* Recent Labs Component Name 03/27/20 0607 03/24/20 0029 03/22/20 0046 ESR 44* 53* 50* Recurring Labs: Ig03/13/20 162, IVIG given. 03/22/20 - 509 CD4: 02/27/20-68 PATHOLOGY: BMBX (03/03/20): Path - Normocellular marrow with maturing trilineage hematopoiesis. NISHA Flow - NISHA Cyto - 46,XY FISH - negative INFECTIOUS: BCx (03/24/20): NGTD BCx (03/21/20): NGTD Covid swab (03/07/20): positive Bronch (03/06/20): COVID +, otherwise negative. Path reactive alveolar parenchyma with mild chronic inflammation RADIOLOGY: CXR (03/20/20): Bilateral interstitial and airspace opacities are mildly improved. No new areas of airspace consolidation observed. There is suggestion of small bilateral pleural effusions with adjacent atelectasis or airspace disease. Venous Duplex (03/03/20): Negative for DVT CT Chest (03/02/30): Altered distribution of prominent geographic GGO within upper and lower lung zones bilaterally. Re-demonstration of nonocclusive thrombus within left brachiocephalic vein which extends to the superior vena cava. ECHO (03/02/20): ~LVEF 68% ASSESSMENT/PLAN: JALIL LUIS is a 49 year old male, who is Day +160 (Day 0 is 10/20/19) of an autologous peripheral blood stem cell transplant with a 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 SYSTEMS: Marginal Zone Lymphoma in CR2 pre-transplant Schema: 5A Prep: BEAM, Cell count 10.4 x 10^6 CD34+cells/kg in 5 bags; day [address] A/P -- BMBx completed (03/03) -Transfusion threshold: Hgb > 7; Plt > 10; CMV +, transfusion pre meds: none needed -Engraftment: ANC day +9 (10/29/19); plt engraftment 11/03/19 (day +14) -given overall stability will check CBCw/Diff MWF OI prophylaxis: Bacterial:??Pen VK PJP:??Bactrim DS MWF Viral: Valtrex 500mg BID COVID -tested positive early January, asymptomatic at that time -Covid from bronch 03/07 and PROVISIONING ANALYST swab 03/07 both positive -received remdesivir 03/08 - 03/12 & convalescent plasma 03/10 -given overall stability will check labs every MWF at this point -following discussion with pulm pt will likely benefit from longer steroid taper than outlined in [facility] protocol -steroids switched to pred 03/18 then tapered to 60mg 03/20; >>start slow taper over 2-3 weeks on 03/23 >>taper by 10mg every 4 days>>03/26 40 mg daily, next taper 03/30/20 -continue ATC altuberol and O2 monitoring -stopped vit C today as he has been on well over 7 days as outlined in [facility]+ -continue PO thiamine Hypoxia -overall stable at this time; continues on 55% CPAP alternating with HFNC -started long acting beta agonist/corticosteroid (symbicort) 03/22 -09/05 COVID, see above -intubated 03/06/20 -03/08/20 -Bronch'd 03/06/20>>COVID + otherwise unremarkable -continues to be labile, likely 2-3 weeks before significant improvement and would likely benefit from LTACH while tapering steroids and weaning oxygen Arthralgias--Resolved -new onset bilateral knee pain without erythema or swelling -unlikely DVT given current ACT -? 2/2 known COVID vs steroid taper -Celebrex 100mg BID Folliculitis -improving -keep skin clean and dry, will follow closely Right IJ venous clot 09/27/19 -Lovenox 120 mg Q12H while inpt -previously on Eliquis 5 mg BID -when discharged to LTAC given overall stability reasonable to resume Eliquis at that time Pertinent History: Persistent Fevers: reason for admission, completed 7D course of cem and vanco on 03/08/20 Anxiety/Depression- Lexapro 10 mg daily Restless Leg Syndrome - Requip 0.25 mg QHS Headaches tramadol 50 mg q8h. LP completed 03/01. Results negative for meningitis Discharge Planning: Patients preferred contact information: cell Caregiver: sister, girlfriend Preferred D/C Pharmacy: [facility] Intended lodging: home Referring provider: Cesar Tavares Disposition: Remain on 8S for O2 support, working on placement in LTAC given likely prolonged weaning of oxygen Asim Ramirez APRN, TALENT ACQUISITION OPERATIONS MANAGER-C [facility] Blood Marrow and Transplant Pager: [phone] I independently interviewed and examined Jalil Luis with the BMT advanced practice provider. I reviewed my findings and assessment with the advanced practice provider and the patient. I reviewed the below note. Please see note for full detail. Day 160 Remains on O2, FiO2 high flow 70% Goal sats > 92% Feels he can go longer on O2 w/o having to switch to CPAP Other VSS CoViD markers being followed QOD with lab draw Good po intake Albumin 2.0s Meds reviewed: Celebrex for arthralgias Lovenox full dose - decide when to stop, will likely keep on full dose post- discharge for 2-4 weeks Pred 40mg (tapered last 03/26) - wean by 10mg q4d PCN VK/Bactrim/VCV Requip Lexapro B1/VitC/zinc per MATH protocol - will stop all beside thiamine Scheduled albuterol At this point, Aurelio would be done with AC for UE DVT However, in light of CoViD and prolonged stay, would be good to keep some amt of AC going (see above plan) Decide upon transition when to repeat chest imaging Working with PT everyday SW working on single case agreement with LTAC Hillary Apple MD MSc wreath and garland maker hand Interim Director, Division of Hematology/Oncology [facility] * Katty Zuniga RN - 03/28/2020 2:16 AM CDT Problem: Fall Risk Goal: Fall risk and fall related injury risk are minimized Outcome: Ongoing Problem: Isolation Goal: Prevent Transmission of Infection Outcome: Ongoing Problem: Skin Integrity Goal: Skin integrity is maintained or improved Outcome: Ongoing Problem: Impaired Gas Exchange Goal: Resp rate/effort will be within specified limits Outcome: Ongoing * Inga Cortez OT - 03/27/2020 2:08 PM CDT [facility] Physical Medicine and Rehabilitation Occupational Therapy Progress Note Patient: Jalil Luis Med Record Number: [id number] Date of : 1970 Age: [age] year old Co-Tx w/ PT Patient is COVID-19 positive. PPE donned by therapist throughout session - disposable gown, gloves, N95 mask, eye protection, faceshield, hair net, alva cover and shoe covers. Discharge Recommendation: Patient will benefit from multidisciplinary inpatient therapies (LTAC) Precautions: FALLS SAFETY *COVID-19 +* Subjective: I feel okay. I missed you guys At start of therapy session, patient found in bed and with no alarm. Pain: Patient has 0 out of 10 pain in body. Nurse notified. Activities of Daily Living Feeding:NT Grooming/Bathing: Stand By Assist --only needs assistance for lines Upper Extremity Dressing: not tested Lower Extremity Dressing: Stand By Assist --socks Toileting/Transfers: Stand By Assist --see vitals below Mobility: Assist device: none Supine to/from Sit:Stand By Assist Sit to/from Stand: Stand By Assist Bed to/from Chair: not tested Functional Mobility: From bed to toilet with Stand By Assist Splint Issued/Checked: none Splint Check Completed: N/A Balance: Static Sitting: good Dynamic Sitting: good Static Standing: good minus Dynamic Standing: good minus Vitals: Rest BP: HR: 150 128 SpO2 SpO2 100%--talking in bed Room Air L 02 70% Bipap on CPAP Ex/Gait/ Activity Without 02 BP: HR: SpO2 Room Air Ex/Gait/ Activity With 02 BP: HR: 159 161 150 138 134 136 153 148 137 156 150 149 146 175 169 160 157 155 138 131 130 125 129 133 127 SpO2 100%--on toilet 96% 96%--1 min on toilet 98%--2 mins 99%--3 mins 98%--4 mins 95%--peak values after esvin care 94%--1 min post esvin care 97%--2 mins 99%--3 mins 98%--4 mins 99%--5 mins 99%--6 mins 92%--post washing hands and standing 95%--1 min standing 94%--2 mins 95% 93%--1 min after back to bed 98% 100%--5 mins in bed and talking (60% Fi02) 99% (60% Fi02) 98%--7 mins (55% Fi02) 97%--11 mins (50% Fi02) 94% (50% Fi02%) 97% (50% Fi02) 15 mins total back in bed L 02 Post Activity BP: HR: SpO2 SpO2 L 02 Room Air Observations: Started out at rest at 55%. Increased to 70% for activity. Stood for 2 mins 30 seconds post washing hands. Still has dry cough. Tolerating more and more activity Activity tolerance: poor plus Cognitive/Perceptual: A&Ox4; always agreeable and pleasant. Treatment/Therapeutic Exercise: Treatment session this date focused on ADL training Functional transfer training Endurance training Bed mobility Energy conservation Safety awareness HEP training Patient/Family Teaching: Exercise, Gait, Mobility and Self care Equipment Issued: none Update Treatment Plan/Goals : Pt continues to benefit from skilled OT to improve independence with activities of daily living, increase strength, endurance, range of motion and decrease pain. Short Term Goals: Patient will perform grooming?Standing at sink and With modified independence Patient will perform lower extremity dressing?With modified independence Patient will perform toileting?With modified independence Family Nurse Practitioner Goal:Patient to discharge to appropriate next level of inpatient care If patient is discharged from the facility, this note serves as a discharge note if further occupational therapy visits did not occur. Following therapy session, patient left in bed, with call light within reach, with Flori RILEY aware and with RN/CP rehab cues written on white board. Inga Cortez OT * Amy Anderson PT - 03/27/2020 1:55 PM CDT [facility] Physical Medicine and Rehabilitation PhysicalTherapy Progress Note ?Patient: Jalil Luis? Med Record Number: [id number] ??Date of : 1970?Age: [age] year old ? Pt is COVID POSITIVE.??PT and OT wear goggles, N95 mask, alva covers, face shield, gown, and gloves during session.??Co Treat with OT due to medical complexity and level of skilled assist required, especially due to vitals status/O2 needs.? Discharge Recommendation:??Patient will benefit from multidisciplinary inpatient therapies.??Recommendation changed to LTAC due to current high level of O2 requirement and decreased endurance.? Subjective:? I had some good food this weekend. ?? Patient currently using no assistive device. ?? Mental Status:??Alert, oriented x4. Pleasant and cooperative.? At start of therapy session, patient found??in bed and with no alarm. ?? Pain: Patient has??0??out of 10 pain. Nurse notified. ?? Weight Bearing Status:??no restrictions? Mobility: ?Rolling: not tested ?Supine to Sit:Independent ?Sit to Supine: Independent ?Sit to Stand:Independent ?Bed to Chair: not tested ?? Gait: ?Device:none ?Assistance: Stand By Assist for line management ?Distance: 10ft, 15ft ?Deviations: ??Pt ambulates to bathroom, then to sink and back to bed.??Ableto stand at bedside prior to resting in bed. Pt occasionally holds doorframe for balance. ?? Balance: ?Static Sitting: good ?Dynamic sitting: good ?Static Standing: good minus ?Dynamic Standing: good minus ?? Stairs :??NT ?? Vitals: Rest BP: ?? HR: 150 128 SpO2 ?? SpO2 100%--talking in bed Room Air ?? L 02 ?? 70% Bipap on CPAP Ex/Gait/ Activity Without 02 BP: ?? HR: ?? SpO2 ?? Room Air ?? Ex/Gait/ Activity With 02 BP: ?? HR: 159 161 150 138 134 136 153 ?? 148 ?? 137 156 150 149 146 175 ?? 169 160 157 155 ?? 138 131 ? 130 ?? 125 ?? 129 ?? 133 127 ? SpO2 100%--on toilet 96% 96%--1 min on toilet 98%--2 mins 99%--3 mins 98%--4 mins 95%--peak values after esvin care 94%--1 min post esvin care 97%--2 mins 99%--3 mins 98%--4 mins 99%--5 mins 99%--6 mins 92%--post washing hands and standing 95%--1 min standing 94%--2 mins 95% 93%--1 min after back to bed 98% 100%--5 mins in bed and talking (60% Fi02) 99% (60% Fi02) ?? 98%--7 mins (55% Fi02) 97%--11 mins (50% Fi02) 94% (50% Fi02%) 97% (50% Fi02) 15 mins total back in bed ? L 02 ?? Post Activity BP: ?? HR: ?? SpO2 ?? SpO2 ?? L 02 ?? Room Air ?? Observations: Started out at rest at 55%. Increased to 70% for activity. Stood for 2 mins 30 seconds post washing hands. Still has dry cough. Tolerating more and more activity ? Activity Tolerance: Patient's activity tolerance:??fair minus to fair; pt tolerance improving on less FIO2.? Treatment/therapeutic Exercise:??Pt donns socks from bed level, rests in bed, then ambulates from bed to toilet. He requires seated rest break to recover on toilet but demonstrates significant improvement in recovery time and O2 does not drop below 93%. He performs pericare from sitting, rests, then stands at sink to wash hands (see OT note) before standing for 2 mins 30 seconds post ambulation back to side of bed. He returns to bed to rest. Overall pt demos improved SPO2 with all activity, improved recovery time, and verbal reports of feeling better than he has in past with activity. ?? Patient/Family Teaching:??Exercise, Gait and Mobility Patient demonstrated??Good??understanding of instructions given. ? Short Term Goals: Goal Formation?With patient Patient will perform bed mobility:??Independent??(MET 03/15) Patient will transfer sit to/from stand:??Independent (MET 03/15) Patient will transfer bed to/from chair:??Independent (updated 03/15) Patient will ambulate??50??feet with Stand By Assist??and appropriate AD Patient will ascend/descend??10??steps: Stand By Assist??and hand rail assist?? Patient will perform home exercise program independently ?? Family Nurse Practitioner Goal(s): Patient to be independent/baseline with functional mobility and self care and be able to safely discharge to prior level of care ?? Update Treatment Plan:??Continue with current PT plan of care to improve safety and functional mobility, especially focusing on??progressing gait, standing tolerance on lower FIO2.? If patient is discharged from the facility, this note serves as a discharge note if further physical therapy visits did not occur. ?? Following therapy session, patient left??in bed, with call light within reach and with ROSEMARY Ruby aware. ?? Amy Anderson, PT 03/27/2020? * Alecia Aldana RN - 03/27/2020 11:37 AM CDT Spoke with Jessica at [facility] this AM. Authorization is still pending with insurance. Addendum 12:50- Precert with insurance approved, [facility] is working on single case agreement with insurance now. CM will continue to follow Sissy Aldana RN, BSN Wrapper Stitcher [phone] * Asim Ramirez, TRANSCRIBING OPERATOR HEAD-SEWING DEMONSTRATOR - 03/27/2020 7:26 AM CDT Autologous Hematopoietic Stem Cell Daily Note: PATIENT IDENTIFIERS: JALIL LUIS is a 49 year old male who is Day +159 (Day 0 is 10/20/19) of an autologous peripheral blood stem cell transplant with a 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 INTERVAL HISTORY: Feeling well this morning Denies SOB at rest Continues on CPAP at 55% fiO2 HFNC 70% at 50L LDH, CRP, and ferritin very slightly improved Denies N/V/F/C/D Reports stable bowel and bladder Appetite stable, almost 2L in PO since yesterday Denies knee pain, feels that celebrex has helped Continues to work with PT ROS: A comprehensive review of systems was negative except for: as noted above MEDICATIONS FOR CURRENT ENCOUNTER: SCHEDULED MEDICATIONS: 0.9% NaCl injection 3 mL, Intracatheter, q8h albuterol HFA (PROVENTIL;VENTOLIN;PROAIR) 108 (90 Base) MCG/ACT inhaler 2 puff, Inhalation, q4h artificial tears ophthalmic ointment, Each Eye, q8h ascorbic acid (VITAMIN C) 3,000 mg in 0.9% NaCl IV IVPB, Intravenous, q6h budesonide-formoterol (SYMBICORT) 80-4.5 MCG/ACT inhaler 2 puff, Inhalation, BID celecoxib (CeleBREX) capsule 100 mg, Oral, BID enoxaparin (LOVENOX) injection 120 mg, Subcutaneous, q12h escitalopram (LEXAPRO) tablet 10 mg, Oral, QDAY pantoprazole EC (PROTONIX) tablet 40 mg, Oral, QDAY penicillin V potassium (VEETIDS) solution 250 mg, Oral, q12h predniSONE (DELTASONE) tablet 40 mg, Oral, QDAY WITH BREAKFAST rOPINIRole (REQUIP) tablet 0.25 mg, Oral, AT BEDTIME sulfamethoxazole-trimethoprim (BACTRIM DS; SEPTRA DS) 800-160 MG tablet 1 tablet, Oral, MON, WED AND FRI thiamine (VITAMIN B-1) tablet 200 mg, Oral, q12h traMADol (ULTRAM) tablet 50 mg, Oral, q8h valACYclovir (VALTREX) tablet 500 mg, Oral, BID vitamin D3-cholecalciferol (CHOLECALCIFEROL) 25 MCG (1000 UNITS) tablet 2,000 Units, Oral, QDAY ?? zinc gluconate tablet 50 mg, Oral, QDAY ?? CONTINUOUS MEDICATIONS: PRN MEDICATIONS: 0.9% NaCl injection 1-10 mL, Intracatheter, PRN acetaminophen (TYLENOL) tablet 325 mg, Oral, q4h PRN magnesium sulfate 2 g in 50 mL bolus, Intravenous, PRN ondansetron (disintegrating) (ZOFRAN ODT) tablet 4 mg, Oral, q8h PRN ondansetron (ZOFRAN) injection 4 mg, Intravenous, q8h PRN oxyCODONE (immediate release) (ROXICODONE) tablet 5 mg, Oral, q4h PRN prochlorperazine (COMPAZINE) injection 10 mg, Intravenous, q6h PRN prochlorperazine (COMPAZINE) tablet 5 mg, Oral, q8h PRN ?? saline nasal spray (OCEAN; BABY AYR) 0.65 % nasal spray 2 spray, Each Nostril, q2h PRN VITALS: Vitals: 03/26/20 1204 03/26/20 1957 03/27/20 0004 03/27/20 0405 BP: 136/84 151/98 122/87 119/83 Pulse: (!) 113 (!) 123 108 92 Resp: Temp: 98.4 ??F 98.9 ??F 98 ??F 98.1 ??F SpO2: 93% 99% 99% 99% Weight: Height: Wt Readings from Last 3 Encounters: 03/25/20 114 kg (251 lb 5.2 oz) 02/26/20 120.2 kg (265 lb) 11/15/19 123.4 kg (272 lb) Date 03/26/20 07 - 03/27/20 0659 03/27/20 07 - 03/28/20 0659 Shift 7077-4413 0368-5969 24 Hour Total 3218-1429 8275-9862 24 Hour Total INTAKE P.O. 1920 1920 I.V.(mL/kg/hr) 303.4(0.2) 101.1(0.1) 404.5(0.1) Shift Total(mL/kg) 2223.4(19.5) 101.1(0.9) 2324.5(20.4) OUTPUT Urine(mL/kg/hr) 1200(0.9) 225(0.2) 1425(0.5) Shift Total(mL/kg) 1200(10.5) 225(2) 1425(12.5) NET 1023.4 -123.9 899.5 Weight (kg) 114 114 114 114 114 114 PHYSICAL EXAM: General appearance - alert, well appearing, in no distress, and acyanotic in no respiratory distress Mental status - alert, oriented to person, place, and time, normal mood, behavior, speech, dress, motor activity, and thought processes, affect appropriate to mood Mouth - mucous membranes moist, pharynx normal without lesions Chest - diminished in bilateral bases, no wheezes, rales or rhonchi, symmetric air entry, no tachypnea, retractions or cyanosis Heart - normal rate and regular rhythm, no murmurs noted Abdomen - soft, nontender, nondistended, no masses or organomegaly, bowel sounds normal Neurological - alert, oriented, normal speech, no focal findings or movement disorder noted Musculoskeletal - no joint tenderness, deformity or swelling, no muscular tenderness noted Extremities - peripheral pulses normal, no pedal edema, no clubbing or cyanosis Skin - non-pruruitic folliculitis type rash to upper chest, no suspicious skin lesions noted tenderness PIV - dressing clean dry and intact LABS: Recent Labs Component Name 03/27/2060603/24/202803/22/20 0046 03/18/20 2357 WBC 12.5* 16.8* 14.3* - 16.8* RBC 3.27* 3.40* 3.42* - 3.42* HGB 9.7* 9.9* 10.0* - 10.0* HCT 29.8* 30.4* 30.2* - 30.1* MCV 91.1 89.4 88.3 - 88.0 MCH 29.7 29.1 29.2 - 29.2 MCHC 32.6 32.6 33.1 - 33.2 PLTCOUNT 211 240 205 - 188 RDWSD 78.3* 72.8* 69.9* - 62.7* RDW 24.5* 23.2* 22.3* - 21.2* MPV 11.1 12.9* 12.4 - - NRBCABS 1.36* 0.74* 0.58* - 1.83* NRBCAUTOPCT 10.9* 4.4* 4.1* - 10.9* NEUTPCT 76.5* 81.6* 83.6* - - LYMPHSPCT 9.9* 7.2* 6.8* - - MONOPCT 7.9 7.5 5.3 - - EOSPCT 1.8 0.6 0.5 - - BASOPCT 0.5 0.3 0.3 - - IMMGRANSPCT 3.4* 2.8* 3.5* - - NEUTABS 9.6* 13.7* 12.0* - 15.96* LYMPHS 1.2 1.2 1.0 - 0.17* MONO 0.99* 1.25* 0.75* - 0.50 EOS 0.23 0.10 0.07 - - BASO 0.06 0.05 0.04 - - TOTCELLCNT - - - - 100 - = values in this interval not displayed. Recent Labs Component Name 03/27/20 0603/24/202803/22/20 0046 BUN 21 20 15 CREATININE 0.9 0.9 0.8 NA 143 139 140 POTASSIUM 3.7 4.2 4.2 CL 104 100 98 CO2 27 26 32* CALCIUM 8.6 8.8 8.4 PROT 5.1* 5.5* 5.4* ALB 2.5* 2.6* 2.4* TBILI 0.2 0.2 0.2 ALKPHOS 99 93 86 ALT 73* 52 46 AST 27 20 19 ANIONGAP 16 17 14 BCR 23 22 19 OSMOLALITY 299 292 291 AGRATIO 1.0* 0.9* 0.8* EGFR >60 >60 >60 Recent Labs Component Name 03/27/20 0607 03/24/20 0029 03/22/20 0046 MAGNESIUM 1.7 1.8 2.0 Recent Labs Component Name 03/27/20 0607 03/24/20 0029 03/22/20 0046 PHOS 4.8* 4.1 3.9 Recent Labs Component Name 03/27/20 0607 03/24/20 0029 03/22/20 0046 CRP 2.1* 2.2* 3.0* LDH Total Date Value Ref Range Status 03/27/2020 358 (H) 125 - 243 Units/L Final 03/24/2020 369 (H) 125 - 243 Units/L Final 03/22/2020 390 (H) 125 - 243 Units/L Final Recent Labs Component Name 03/27/20 0607 03/24/20 0029 03/22/20 0046 FERRITIN 651* 658* 737* Recent Labs Component Name 03/27/20 0607 03/24/20 0029 03/22/20 0046 ESR 44* 53* 50* Recurring Labs: Ig03/13/20 162, IVIG given. 03/22/20 - 509 CD4: 02/27/20-68 PATHOLOGY: BMBX (03/03/20): Path - Normocellular marrow with maturing trilineage hematopoiesis. NISHA Flow - NISHA Cyto - 46,XY FISH - negative INFECTIOUS: BCx (03/24/20): NGTD BCx (03/21/20): NGTD Covid swab (03/07/20): positive Bronch (03/06/20): COVID +, otherwise negative. Path reactive alveolar parenchyma with mild chronic inflammation RADIOLOGY: CXR (03/20/20): Bilateral interstitial and airspace opacities are mildly improved. No new areas of airspace consolidation observed. There is suggestion of small bilateral pleural effusions with adjacent atelectasis or airspace disease. Venous Duplex (03/03/20): Negative for DVT CT Chest (03/02/30): Altered distribution of prominent geographic GGO within upper and lower lung zones bilaterally. Re-demonstration of nonocclusive thrombus within left brachiocephalic vein which extends to the superior vena cava. ECHO (03/02/20): ~LVEF 68% ASSESSMENT/PLAN: JALIL LUIS is a 49 year old male, who is Day +159 (Day 0 is 10/20/19) of an autologous peripheral blood stem cell transplant with a 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 SYSTEMS: Marginal Zone Lymphoma in CR2 pre-transplant Schema: 5A Prep: BEAM, Cell count 10.4 x 10^6 CD34+cells/kg in 5 bags; day [address] A/P -- BMBx completed (03/03) -Transfusion threshold: Hgb > 7; Plt > 10; CMV +, transfusion pre meds: none needed -Engraftment: ANC day +9 (10/29/19); plt engraftment 11/03/19 (day +14) -given overall stability will check CBCw/Diff MWF OI prophylaxis: Bacterial:??Pen VK PJP:??Bactrim DS MWF Viral: Valtrex 500mg BID COVID -tested positive early January, asymptomatic at that time -Covid from bronch 03/07 and PROVISIONING ANALYST swab 03/07 both positive -received remdesivir 03/08 - 03/12 & convalescent plasma 03/10 -given overall stability will check labs every MWF at this point -CXR appears somewhat improved 03/20 vs 03/10 -following discussion with pulm pt will likely benefit from longer steroid taper than outlined in [facility]+ protocol -steroids switched to pred 03/18 then tapered to 60mg 03/20; >>start slow taper over 2-3 weeks on 03/23 >>taper by 10mg every 4 days>>03/26 40 mg daily, next taper 03/30/20 -continue ATC altuberol and O2 monitoring Hypoxia -overall stable at this time; continues on 55% CPAP alternating with HFNC -started long acting beta agonist/corticosteroid (symbicort) 03/22 -09/05 COVID, see above -intubated 03/06/20 -03/08/20 -Bronch'd 03/06/20>>COVID + otherwise unremarkable -continues to be labile, likely 2-3 weeks before significant improvement and would likely benefit from LTACH while tapering steroids and weaning oxygen Arthralgias--Resolved -new onset bilateral knee pain without erythema or swelling -unlikely DVT given current ACT -? 09/05 known COVID vs steroid taper -Celebrex 100mg BID Folliculitis -keep skin clean and dry, will follow closely Right IJ venous clot 09/27/19 -Lovenox 120 mg Q12H while inpt -previously on Eliquis 5 mg BID -when discharged to LTAC given overall stability reasonable to resume Eliquis at that time Pertinent History: Persistent Fevers: reason for admission, completed 7D course of cem and vanco on 03/08/20 Anxiety/Depression- Lexapro 10 mg daily Restless Leg Syndrome - Requip 0.25 mg QHS Headaches tramadol 50 mg q8h. LP completed 03/01. Results negative for meningitis Discharge Planning: Patients preferred contact information: cell Caregiver: sister, girlfriend Preferred D/C Pharmacy: [facility] Intended lodging: home Referring provider: Cesar Tavares Disposition: Remain on 8S for O2 support, working on placement in LTAC given likely prolonged weaning of oxygen Asim Ramirez APRN, TALENT ACQUISITION OPERATIONS MANAGER-C [facility] Blood Marrow and Transplant Pager: [phone] I independently interviewed and examined Jalil Donal Alcantaraer with the BMT advanced practice provider. I reviewed my findings and assessment with the advanced practice provider and the patient. I reviewed the below note. Please see note for full detail. Day 159 Remains on O2, FiO2 high flow 70% Goal sats > 92% Other VSS CoViD markers being followed QOD with lab draw Good po intake Albumin 2.0s Meds reviewed: Celebrex for arthralgias Lovenox full dose - decide when to stop Pred 40mg (tapered last 03/26) - wean by 10mg q4d PCN VK/Bactrim/VCV Requip Lexapro B1/VitC/zinc per [facility] protocol Scheduled albuterol At this point, Aurelio would be done with AC for UE DVT However, in light of CoViD and prolonged stay, would be good to keep some amt of AC going Decide upon transition when to repeat chest imaging Working with PT everyday SW working on single case agreement with LTAC Hillary Apple MD MSc wreath and garland maker hand Interim Director, Division of Hematology/Oncology [facility] * Bill Ferrera MD - 03/26/2020 6:53 AM CDT Autologous Hematopoietic Stem Cell Daily Note: PATIENT IDENTIFIERS: JALIL LUIS is a 49 year old male who is Day +158 (Day 0 is 10/20/19) of an autologous peripheral blood stem cell transplant with a 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 INTERVAL HISTORY: Aurelio is feeling well this morning with no new complaints Not sleeping great, sleeps more during the day. Discussed trying to stay awake more during the day,he is planning to sit up in chair this afternoon No F/C Continues to have sinus drainage. Dry cough No headaches. No pain SOB stable, O2 requirements remain the same over the past 24 hours Eating and drinking well, despite poor PO intake charted ROS: A comprehensive review of systems was negative except for: as noted above MEDICATIONS FOR CURRENT ENCOUNTER: SCHEDULED MEDICATIONS: 0.9% NaCl injection 3 mL, Intracatheter, q8h albuterol HFA (PROVENTIL;VENTOLIN;PROAIR) 108 (90 Base) MCG/ACT inhaler 2 puff, Inhalation, q4h artificial tears ophthalmic ointment, Each Eye, q8h ascorbic acid (VITAMIN C) 3,000 mg in 0.9% NaCl IV IVPB, Intravenous, q6h budesonide-formoterol (SYMBICORT) 80-4.5 MCG/ACT inhaler 2 puff, Inhalation, BID celecoxib (CeleBREX) capsule 100 mg, Oral, BID enoxaparin (LOVENOX) injection 120 mg, Subcutaneous, q12h escitalopram (LEXAPRO) tablet 10 mg, Oral, QDAY pantoprazole EC (PROTONIX) tablet 40 mg, Oral, QDAY penicillin V potassium (VEETIDS) solution 250 mg, Oral, q12h predniSONE (DELTASONE) tablet 40 mg, Oral, QDAY WITH BREAKFAST rOPINIRole (REQUIP) tablet 0.25 mg, Oral, AT BEDTIME sulfamethoxazole-trimethoprim (BACTRIM DS; SEPTRA DS) 800-160 MG tablet 1 tablet, Oral, MON, WED AND FRI thiamine (VITAMIN B-1) tablet 200 mg, Oral, q12h traMADol (ULTRAM) tablet 50 mg, Oral, q8h valACYclovir (VALTREX) tablet 500 mg, Oral, BID vitamin D3-cholecalciferol (CHOLECALCIFEROL) 25 MCG (1000 UNITS) tablet 2,000 Units, Oral, QDAY ?? zinc gluconate tablet 50 mg, Oral, QDAY ?? CONTINUOUS MEDICATIONS: PRN MEDICATIONS: 0.9% NaCl injection 1-10 mL, Intracatheter, PRN acetaminophen (TYLENOL) tablet 325 mg, Oral, q4h PRN magnesium sulfate 2 g in 50 mL bolus, Intravenous, PRN ondansetron (disintegrating) (ZOFRAN ODT) tablet 4 mg, Oral, q8h PRN ondansetron (ZOFRAN) injection 4 mg, Intravenous, q8h PRN oxyCODONE (immediate release) (ROXICODONE) tablet 5 mg, Oral, q4h PRN prochlorperazine (COMPAZINE) injection 10 mg, Intravenous, q6h PRN prochlorperazine (COMPAZINE) tablet 5 mg, Oral, q8h PRN ?? saline nasal spray (OCEAN; BABY AYR) 0.65 % nasal spray 2 spray, Each Nostril, q2h PRN VITALS: Vitals: 03/25/20 2116 03/26/20 0009 03/26/20 0357 03/26/20 0740 BP: 132/90 146/92 124/86 136/94 Pulse: (!) 113 (!) 120 92 96 Resp: Temp: 99.4 ??F 98 ??F 97.9 ??F 98 ??F SpO2: 98% 97% 99% 98% Weight: Height: Wt Readings from Last 3 Encounters: 03/25/20 114 kg (251 lb 5.2 oz) 02/26/20 120.2 kg (265 lb) 11/15/19 123.4 kg (272 lb) Date 03/25/20 07 - 03/26/20 0659 03/26/20 07 - 03/27/20 0659 Shift 7738-9606 7501-7671 24 Hour Total 6454-7367 0374-7561 24 Hour Total INTAKE I.V.(mL/kg/hr) 112.6(0.1) 99.7(0.1) 212.4(0.1) Shift Total(mL/kg) 112.6(1) 99.7(0.9) 212.4(1.9) OUTPUT Urine(mL/kg/hr) 1800(1.3) 280(0.2) 2080(0.8) Shift Total(mL/kg) 1800(15.8) 280(2.5) 2080(18.2) NET -1687.4 -180.3 -1867.6 Weight (kg) 114 114 114 114 114 114 PHYSICAL EXAM: Physical Examination: General appearance - alert, well appearing, and in no distress Mental status - alert, oriented to person, place, and time Mouth - mucous membranes moist, pharynx normal without lesions Chest - expiratory wheezes throughout Heart - normal rate, regular rhythm, normal S1, S2, no murmurs, rubs, clicks or gallops Abdomen - soft, nontender, nondistended, no masses or organomegaly Extremities - peripheral pulses normal, no pedal edema, no clubbing or cyanosis Skin - folliculitis type rash to chest, non-bothersome PIV - C/D/I LABS: Recent Labs Component Name 03/24/20 0029 03/22/20 0046 03/21/20 0213 03/18/20 2357 03/15/20 0027 WBC 16.8* 14.3* 13.6* - 16.8* - 17.9* RBC 3.40* 3.42* 3.47* - 3.42* - 3.09* HGB 9.9* 10.0* 10.0* - 10.0* - 8.8* HCT 30.4* 30.2* 30.4* - 30.1* - 26.2* MCV 89.4 88.3 87.6 - 88.0 - 84.8 MCH 29.1 29.2 28.8 - 29.2 - 28.5 MCHC 32.6 33.1 32.9 - 33.2 - 33.6 PLTCOUNT 240 205 192 - 188 - 181 RDWSD 72.8* 69.9* 67.5* - 62.7* - 54.0* RDW 23.2* 22.3* 22.1* - 21.2* - 18.3* MPV 12.9* 12.4 - - - - 13.8* NRBCABS 0.74* 0.58* 0.77* - 1.83* - 0.34* NRBCAUTOPCT 4.4* 4.1* 5.7* - 10.9* - 1.9* NEUTPCT 81.6* 83.6* 82.7* - - - 89.7* LYMPHSPCT 7.2* 6.8* 7.1* - - - 3.1* MONOPCT 7.5 5.3 5.2 - - - 3.3 EOSPCT 0.6 0.5 0.8 - - - 0.1 BASOPCT 0.3 0.3 0.2 - - - 0.1 IMMGRANSPCT 2.8* 3.5* 4.0* - - - 3.7* NEUTABS 13.7* 12.0* 11.3* - 15.96* - 16.0* LYMPHS 1.2 1.0 1.0 - 0.17* - 0.6* MONO 1.25* 0.75* 0.71* - 0.50 - 0.59 EOS 0.10 0.07 0.11 - - - 0.01 BASO 0.05 0.04 0.03 - - - 0.02 TOTCELLCNT - - - - 100 - - - = values in this interval not displayed. Recent Labs Component Name 03/24/20 0029 03/22/20 0046 03/21/20 0213 BUN 20 15 16 CREATININE 0.9 0.8 0.8 NA 139 140 139 POTASSIUM 4.2 4.2 4.2 CL 100 98 99 CO2 26 32* 30* CALCIUM 8.8 8.4 8.6 PROT 5.5* 5.4* 5.4* ALB 2.6* 2.4* 2.4* TBILI 0.2 0.2 0.2 ALKPHOS 93 86 91 ALT 52 46 36 AST 20 19 15 ANIONGAP 17 14 14 BCR 22 19 20 OSMOLALITY 292 291 289 AGRATIO 0.9* 0.8* 0.8* EGFR >60 >60 >60 Recent Labs Component Name 03/24/20 0029 03/22/20 0046 03/21/20 0213 MAGNESIUM 1.8 2.0 1.9 Recent Labs Component Name 03/24/20 0029 03/22/20 0046 03/21/20 0213 PHOS 4.1 3.9 3.9 Recent Labs Component Name 03/24/20 0029 03/22/20 0046 03/21/20 0213 CRP 2.2* 3.0* 3.2* LDH Total Date Value Ref Range Status 03/24/2020 369 (H) 125 - 243 Units/L Final 03/22/2020 390 (H) 125 - 243 Units/L Final 03/20/2020 395 (H) 125 - 243 Units/L Final Recent Labs Component Name 03/24/20 0029 03/22/20 0046 03/20/20 0844 FERRITIN 658* 737* 703* Recent Labs Component Name 03/24/20 0029 03/22/20 0046 03/20/20 0844 ESR 53* 50* 51* Recurring Labs: Ig03/13/20 162, IVIG given. 03/22/20 - 509 CD4: 02/27/20-68 PATHOLOGY: BMBX (03/03/20): Path - Normocellular marrow with maturing trilineage hematopoiesis. NISHA Flow - NISHA Cyto - 46,XY FISH - negative INFECTIOUS: BCx (03/24/20): NG @ 24 hours BCx (03/21/20): NGTD Covid swab (03/07/20): positive Bronch (03/06/20): COVID +, otherwise negative. Path reactive alveolar parenchyma with mild chronic inflammation RADIOLOGY: CXR (03/20/20): Bilateral interstitial and airspace opacities are mildly improved. No new areas of airspace consolidation observed. There is suggestion of small bilateral pleural effusions with adjacent atelectasis or airspace disease. Venous Duplex (03/03/20): Negative for DVT CT Chest (03/02/30): Altered distribution of prominent geographic GGO within upper and lower lung zones bilaterally. Re-demonstration of nonocclusive thrombus within left brachiocephalic vein which extends to the superior vena cava. ECHO (03/02/20): ~LVEF 68% ASSESSMENT/PLAN: JALIL LUIS is a 49 year old male, who is Day +158 (Day 0 is 10/20/19) of an autologous peripheral blood stem cell transplant with a 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 SYSTEMS: Marginal Zone Lymphoma in CR2 pre-transplant Schema: 5A Prep: BEAM, Cell count 10.4 x 10^6 CD34+cells/kg in 5 bags; day [address] A/P -- BMBx completed (03/03) -Transfusion threshold: Hgb > 7; Plt > 10; CMV +, transfusion pre meds: none needed -Engraftment: ANC day +9 (10/29/19); plt engraftment 11/03/19 (day +14) -given overall stability will check CBCw/Diff MWF OI prophylaxis: Bacterial:??Pen VK PJP:??Bactrim DS MWF Viral: Valtrex 500mg BID COVID -tested positive early January, asymptomatic at that time -Covid from bronch 03/07 and PROVISIONING ANALYST swab 03/07 both positive -received remdesivir 03/08 - 03/12 & convalescent plasma 03/10 -given overall stability will check labs every MWF at this point -CXR appears somewhat improved 03/20 vs 03/10 -following discussion with pulm pt will likely benefit from longer steroid taper than outlined in [facility]+ protocol -steroids switched to pred 03/18 then tapered to 60mg 03/20; >>start slow taper over 2-3 weeks on 03/23 >>taper by 10mg every 4 days>>03/26 40 mg daily, next taper 03/30/20 -continue ATC altuberol and O2 monitoring Hypoxia -marginal improvement over the past few days titrated CPAP from 70% to 50% -started long acting beta agonist/corticosteroid (symbicort) 03/22 -2 COVID, see above -intubated 03/06/20 -03/08/20>>now on CPAP switching to HFNC for meals -Bronch'd 03/06/20>>COVID + otherwise unremarkable -continues to be labile, likely 2-3 weeks before significant improvement and would likely benefit from LTACH while tapering steroids and weaning oxygen Arthralgias--Resolved -new onset bilateral knee pain without erythema or swelling -unlikely DVT given current ACT -? 2/2 known COVID vs steroid taper -BCx negative (drawn in abundance of precautions) -added PRN oxy 5 and and scheduled Celebrex 100mg BID Folliculitis -keep skin clean and dry, will follow closely Right IJ venous clot 09/27/19 -Lovenox 120 mg Q12H while inpt -previously on Eliquis 5 mg BID Pertinent History: Persistent Fevers: reason for admission, completed 7D course of cem and vanco on 03/08/20 Anxiety/Depression- Lexapro 10 mg daily Restless Leg Syndrome - Requip 0.25 mg QHS Headaches tramadol 50 mg q8h. LP completed 03/01. Results negative for meningitis Discharge Planning: Patients preferred contact information: cell Caregiver: sister, girlfriend Preferred D/C [facility] Intended lodging: home Referring provider: Cesar Tavares Disposition: Remain on 8S for O2 support, working on placement in LTAC given likely prolonged weaning of oxygen [facility]IE [facility]P- [facility] Condition stable No specific heme/onc, BMT management I reviewed Jalil Mansfield Maricruzbernice case with Tiffanie Nguyen PROVISIONING ANALYST, reviewed the note, and participated in all of the medical decisions. Bill Ferrera M.D. Director, Blood and Marrow Transplantation Nailing Machine Operator Automatic, Department of Internal Medicine [facility] * Katty Zuniga RN - 03/26/2020 4:22 AM CDT Problem: Fall Risk Goal: Fall risk and fall related injury risk are minimized Outcome: Ongoing Problem: Isolation Goal: Prevent Transmission of Infection Outcome: Ongoing Problem: Skin Integrity Goal: Skin integrity is maintained or improved Outcome: Ongoing Problem: Impaired Gas Exchange Goal: Resp rate/effort will be within specified limits Outcome: Ongoing * Hipolito Gillespie RN - 03/25/2020 11:08 AM CDT Problem: Pain/Discomfort Goal: Patient exhibits reduced pain/discomfort as evidenced by pain scores Outcome: Ongoing Problem: Fall Risk Goal: Fall risk and fall related injury risk are minimized Outcome: Ongoing Problem: Isolation Goal: Prevent Transmission of Infection Outcome: Ongoing Problem: Isolation Goal: Prevent Transmission of Infection Outcome: Ongoing Problem: Anemia Goal: Patient able to verbalize preventions and signs & symptoms Outcome: Ongoing Problem: Skin Integrity Goal: Skin integrity is maintained or improved Outcome: Ongoing Problem: Tobacco Use Goal: Inpatient tobacco-use cessation counseling participation Outcome: Ongoing Problem: Impaired Gas Exchange Goal: Resp rate/effort will be within specified limits Outcome: Ongoing * Bill Ferrera MD - 03/25/2020 6:50 AM CDT Autologous Hematopoietic Stem Cell Daily Note: PATIENT IDENTIFIERS: JALIL LUIS is a 49 year old male who is Day +157 (Day 0 is 10/20/19) of an autologous peripheral blood stem cell transplant with a 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 INTERVAL HISTORY: Aurelio no longer has throbbing pain to legs, controlled with Celebrex. He was able to stand for >5 min yesterday with PT before feeling too dyspneic. No F/C No N/V/D O2 requirements able to wean down slightly over the past few days. On 70 L HFNC and 50% FiO2 on CPAP face mask ROS: A comprehensive review of systems was negative except for: as noted above MEDICATIONS FOR CURRENT ENCOUNTER: SCHEDULED MEDICATIONS: 0.9% NaCl injection 3 mL, Intracatheter, q8h albuterol HFA (PROVENTIL;VENTOLIN;PROAIR) 108 (90 Base) MCG/ACT inhaler 2 puff, Inhalation, q4h artificial tears ophthalmic ointment, Each Eye, q8h ascorbic acid (VITAMIN C) 3,000 mg in 0.9% NaCl IV IVPB, Intravenous, q6h budesonide-formoterol (SYMBICORT) 80-4.5 MCG/ACT inhaler 2 puff, Inhalation, BID celecoxib (CeleBREX) capsule 100 mg, Oral, BID enoxaparin (LOVENOX) injection 120 mg, Subcutaneous, q12h escitalopram (LEXAPRO) tablet 10 mg, Oral, QDAY pantoprazole EC (PROTONIX) tablet 40 mg, Oral, QDAY penicillin V potassium (VEETIDS) solution 250 mg, Oral, q12h predniSONE (DELTASONE) tablet 50 mg, Oral, QDAY WITH BREAKFAST rOPINIRole (REQUIP) tablet 0.25 mg, Oral, AT BEDTIME sulfamethoxazole-trimethoprim (BACTRIM DS; SEPTRA DS) 800-160 MG tablet 1 tablet, Oral, MON, WED AND FRI thiamine (VITAMIN B-1) tablet 200 mg, Oral, q12h traMADol (ULTRAM) tablet 50 mg, Oral, q8h valACYclovir (VALTREX) tablet 500 mg, Enteral Tube, BID vitamin D3-cholecalciferol (CHOLECALCIFEROL) 25 MCG (1000 UNITS) tablet 2,000 Units, Oral, QDAY ?? zinc gluconate tablet 50 mg, Oral, QDAY ?? CONTINUOUS MEDICATIONS: PRN MEDICATIONS: 0.9% NaCl injection 1-10 mL, Intracatheter, PRN acetaminophen (TYLENOL) tablet 325 mg, Oral, q4h PRN magnesium sulfate 2 g in 50 mL bolus, Intravenous, PRN ondansetron (disintegrating) (ZOFRAN ODT) tablet 4 mg, Oral, q8h PRN ondansetron (ZOFRAN) injection 4 mg, Intravenous, q8h PRN oxyCODONE (immediate release) (ROXICODONE) tablet 5 mg, Oral, q4h PRN prochlorperazine (COMPAZINE) injection 10 mg, Intravenous, q6h PRN prochlorperazine (COMPAZINE) tablet 5 mg, Oral, q8h PRN ?? saline nasal spray (OCEAN; BABY AYR) 0.65 % nasal spray 2 spray, Each Nostril, q2h PRN VITALS: Vitals: 03/24/20 1444 03/24/20 2130 03/25/20 0046 03/25/20 0509 BP: 118/83 135/88 140/85 146/84 Pulse: 106 104 98 Resp: Temp: 98.4 ??F 97.8 ??F 98.2 ??F 97.8 ??F SpO2: 99% 99% 97% 94% Weight: 114 kg (251 lb 5.2 oz) Height: Wt Readings from Last 3 Encounters: 03/25/20 114 kg (251 lb 5.2 oz) 02/26/20 120.2 kg (265 lb) 11/15/19 123.4 kg (272 lb) Date 03/24/20 07 - 03/25/20 0659 03/25/20 07 - 03/26/20 0659 Shift 4619-6386 9978-0138 24 Hour Total 4370-0784 2694-6491 24 Hour Total INTAKE P.O. 1580 1580 I.V.(mL/kg/hr) 307.3 307.3 Shift Total(mL/kg) 1580(14.2) 307.3(2.7) 1887.3(16.6) OUTPUT Urine(mL/kg/hr) 1070(0.8) 900 1970 Shift Total(mL/kg) 1070(9.6) 900(7.9) 1970(17.3) NET 510 -592.7 -82.7 Weight (kg) 111.5 114 114 114 114 114 PHYSICAL EXAM: Physical Examination: General appearance - alert, well appearing, and in no distress Mental status - alert, oriented to person, place, and time Mouth - mucous membranes moist, pharynx normal without lesions Chest - diminished in bases, wheezing in right upper middle lobe Heart - normal rate, regular rhythm, normal S1, S2, no murmurs, rubs, clicks or gallops Abdomen - soft, nontender, nondistended, no masses or organomegaly Extremities - peripheral pulses normal, no pedal edema, no clubbing or cyanosis Skin - folliculitis type rash to chest PIV - C/D/I LABS: Recent Labs Component Name 03/24/20 0029 03/22/20 0046 03/21/20 0213 03/18/20 2357 03/15/20 0027 WBC 16.8* 14.3* 13.6* - 16.8* - 17.9* RBC 3.40* 3.42* 3.47* - 3.42* - 3.09* HGB 9.9* 10.0* 10.0* - 10.0* - 8.8* HCT 30.4* 30.2* 30.4* - 30.1* - 26.2* MCV 89.4 88.3 87.6 - 88.0 - 84.8 MCH 29.1 29.2 28.8 - 29.2 - 28.5 MCHC 32.6 33.1 32.9 - 33.2 - 33.6 PLTCOUNT 240 205 192 - 188 - 181 RDWSD 72.8* 69.9* 67.5* - 62.7* - 54.0* RDW 23.2* 22.3* 22.1* - 21.2* - 18.3* MPV 12.9* 12.4 - - - - 13.8* NRBCABS 0.74* 0.58* 0.77* - 1.83* - 0.34* NRBCAUTOPCT 4.4* 4.1* 5.7* - 10.9* - 1.9* NEUTPCT 81.6* 83.6* 82.7* - - - 89.7* LYMPHSPCT 7.2* 6.8* 7.1* - - - 3.1* MONOPCT 7.5 5.3 5.2 - - - 3.3 EOSPCT 0.6 0.5 0.8 - - - 0.1 BASOPCT 0.3 0.3 0.2 - - - 0.1 IMMGRANSPCT 2.8* 3.5* 4.0* - - - 3.7* NEUTABS 13.7* 12.0* 11.3* - 15.96* - 16.0* LYMPHS 1.2 1.0 1.0 - 0.17* - 0.6* MONO 1.25* 0.75* 0.71* - 0.50 - 0.59 EOS 0.10 0.07 0.11 - - - 0.01 BASO 0.05 0.04 0.03 - - - 0.02 TOTCELLCNT - - - - 100 - - - = values in this interval not displayed. Recent Labs Component Name 03/24/20 0029 03/22/20 0046 03/21/20 0213 BUN 20 15 16 CREATININE 0.9 0.8 0.8 NA 139 140 139 POTASSIUM 4.2 4.2 4.2 CL 100 98 99 CO2 26 32* 30* CALCIUM 8.8 8.4 8.6 PROT 5.5* 5.4* 5.4* ALB 2.6* 2.4* 2.4* TBILI 0.2 0.2 0.2 ALKPHOS 93 86 91 ALT 52 46 36 AST 20 19 15 ANIONGAP 17 14 14 BCR 22 19 20 OSMOLALITY 292 291 289 AGRATIO 0.9* 0.8* 0.8* EGFR >60 >60 >60 Recent Labs Component Name 03/24/20 0029 03/22/20 0046 03/21/20 0213 MAGNESIUM 1.8 2.0 1.9 Recent Labs Component Name 03/24/20 0029 03/22/20 0046 03/21/20 0213 PHOS 4.1 3.9 3.9 Recent Labs Component Name 03/24/20 0029 03/22/20 0046 03/21/20 0213 CRP 2.2* 3.0* 3.2* LDH Total Date Value Ref Range Status 03/24/2020 369 (H) 125 - 243 Units/L Final 03/22/2020 390 (H) 125 - 243 Units/L Final 03/20/2020 395 (H) 125 - 243 Units/L Final Recent Labs Component Name 03/24/20 0029 03/22/20 0046 03/20/20 0844 FERRITIN 658* 737* 703* Recent Labs Component Name 03/24/20 0029 03/22/20 0046 03/20/20 0844 ESR 53* 50* 51* Recurring Labs: Ig03/13/20 162, IVIG given. 03/22/20 - 509 CD4: 02/27/20-68 PATHOLOGY: BMBX (03/03/20): Path - Normocellular marrow with maturing trilineage hematopoiesis. NISHA Flow - NISHA Cyto - 46,XY FISH - negative INFECTIOUS: BCx (03/24/20): pending BCx (03/21/20): NGTD Covid swab (03/07/20): positive Bronch (03/06/20): COVID +, otherwise negative. Path reactive alveolar parenchyma with mild chronic inflammation RADIOLOGY: CXr (03/20/20): Bilateral interstitial and airspace opacities are mildly improved. No new areas of airspace consolidation observed. There is suggestion of small bilateral pleural effusions with adjacent atelectasis or airspace disease. Venous Duplex (03/03/20): Negative for DVT CT Chest (03/02/30): Altered distribution of prominent geographic GGO within upper and lower lung zones bilaterally. Re-demonstration of nonocclusive thrombus within left brachiocephalic vein which extends to the superior vena cava. ECHO (03/02/20): ~LVEF 68% ASSESSMENT/PLAN: JALIL LUIS is a 49 year old male, who is Day +157 (Day 0 is 10/20/19) of an autologous peripheral blood stem cell transplant with a 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 SYSTEMS: Marginal Zone Lymphoma in CR2 pre-transplant Schema: 5A Prep: BEAM, Cell count 10.4 x 10^6 CD34+cells/kg in 5 bags; day [address] A/P -- BMBx completed (03/03) -Transfusion threshold: Hgb > 7; Plt > 10; CMV +, transfusion pre meds: none needed -Engraftment: ANC day +9 (10/29/19); plt engraftment 11/03/19 (day +14) -given overall stability will check CBCw/Diff MWF OI prophylaxis: Bacterial:??Pen VK PJP:??Bactrim DS MWF Viral: Valtrex 500mg BID COVID -tested positive early January, asymptomatic at that time -Covid from bronch 03/07 and PROVISIONING ANALYST swab 03/07 both positive -received remdesivir 03/08 - 03/12 & convalescent plasma 03/10 -given overall stability will check labs every MWF at this point -CXr appears somewhat improved 03/20 vs 03/10 -following discussion with pulm pt will likely benefit from longer steroid taper than outlined in [facility]+ protocol -steroids switched to pred 03/18 then tapered to 60mg 03/20; >>start slow taper over 2-3 weeks on 03/23 >>taper by 10mg every 4 days>>03/23 - 50mg; next taper 03/26 to 40 mg daily -continue ATC Hypoxia -marginal improvement over the past few days titrated CPAP from 70% to 50% -started long acting beta agonist/corticosteroid (symbicort) 03/22 -09/05 COVID, see above -intubated 03/06/20 -03/08/20>>now on CPAP switching to HFNC for meals -Bronch'd 03/06/20>>COVID + otherwise unremarkable -continues to be labile, likely 2-3 weeks before significant improvement and would likely benefit from LTACH while tapering steroids and weaning oxygen -follow BCx sent 03/21 to r/o underlying bacterial infection Arthralgias -new onset bilateral knee pain without erythema or swelling -unlikely DVT given current ACT -? 09/05 known COVID vs steroid taper -BCx drawn in an abundance of caution -added PRN oxy 5 and and scheduled Celebrex 100mg BID Folliculitis -keep skin clean and dry, will follow closely Right IJ venous clot 09/27/19 -Lovenox 120 mg Q12H while inpt -previously on Eliquis 5 mg BID Pertinent History: Persistent Fevers: reason for admission, completed 7D course of cem and vanco on 03/08/20 Anxiety/Depression- Lexapro 10 mg daily Restless Leg Syndrome - Requip 0.25 mg QHS Headaches tramadol 50 mg q8h. LP completed 03/01. Results negative for meningitis Discharge Planning: Patients preferred contact information: cell Caregiver: sister, girlfriend Preferred D/C Pharmacy: [email or web address] Intended lodging: home Referring provider: Cesar Tavares Disposition: Remain on 8S for O2 support, working on placement in LTAC given likely prolonged weaning of oxygen MISSY [facility]- [facility] I reviewed Jalil Bullock case with Tiffanie Nguyen PROVISIONING ANALYST, reviewed the note, and participated in all of the medical decisions. Bill Ferrera M.D. Director, Blood and Marrow Transplantation Nailing Machine Operator Automatic, Department of Internal Medicine [facility] * Katty Zuniga RN - 03/25/2020 4:47 AM CDT Problem: Isolation Goal: Prevent Transmission of Infection Outcome: Ongoing Problem: Impaired Gas Exchange Goal: Resp rate/effort will be within specified limits Outcome: Ongoing * Vania Crane OT - 03/24/2020 2:04 PM CDT [facility] Physical Medicine and Rehabilitation Occupational Therapy Progress Note Patient: Jalil Luis [facility] Record Number: [id number] Date of : 1970 Age: [age] year old Co-Tx w/ PT Patient is COVID-19 positive. PPE donned by therapist throughout session - disposable gown, gloves, N95 mask, eye protection, faceshield, hair net, alva cover and shoe covers. Discharge Recommendation: Patient will benefit from multidisciplinary inpatient therapies (LTAC) due to high level O2 requirements, and decreased endurance and functional activity tolerance Subjective: I feel less tired today, I just need my lungs to start working better! Patient is pleasant and agreeable to therapy tx At start of therapy session, patient found in bed and with no alarm. Pain: Patient has c/o general LLE pain/discomfort. Did not rate. Agreeable to proceed with therapy Activities of Daily Living Feeding: NT Grooming/Bathing: Stand By Assist to complete task of hand hygiene in standing at sink. Min assist required for line management and close monitoring of vitals with activity Upper Extremity Dressing: Independent to don/doff gown in supported long sitting in bed, requires brief (1-2) minute rest break to recover from task, see table below. Lower Extremity Dressing: Stand By Assist to don socks in support long sitting in bed, requires 5 minute seated rest break to recover after task Toileting/Transfers: Minimal assist to ambulate to toilet, SBA for pericare in sitting. Requires rest break to recover after transfer and after pericare. Desats some when coughing during task Mobility: Assist device: none Supine to/from Sit:Stand By Assist Sit to/from Stand: Stand By Assist Bed to/from Chair: not tested Functional Mobility: From bed to and from toilet/sink with min/SBA Splint Issued/Checked: none Splint Check Completed: N/A Balance: Static Sitting: good Dynamic Sitting: good Static Standing: good minus Dynamic Standing: fair plus Vitals: Rest HR: SpO2 SpO2 BIPAP on CPAP setting. FiO2 55% FiO@ Ex/Gait/Activity Without 02 HR: 131 113 115 115 161 156 152 136 136 135 136 151 165 160 150 135 133 168 166 155 153 158 137 129 131 132 135 130 133 126 SpO2 90% donning socks in bed 89% 1 minute post socks 93% 2 minutes post socks 98% 4 minutes post socks 84% post toilet transfer 88% 1 minute post toilet transfer 88% 2 minutes post toilet transfer 93% 3 minutes post toilet transfer 97% 4 minutes post toilet transfer 97% 5 minutes post toilet transfer 98% 6 minutes post toilet transfer 94% pericare 88% immediately post pericare/coughing 90% 1 minute post pericare 91% 2 minutes post pericare 96% 3 minutes post pericare 97% 4 minutes post pericare 81% after hand hygiene at sink, amb to bed 90% 1 minute standing at EOB 90% 2 minutes standing at EOB 90% during sit>supine 81% 1 minute post transfer 85% 2 minutes post 96% 3 minutes post 98% 4 minutes post 99% 5 minutes post 93% post don/doffing gown in bed 95% 1 minute post gown 95% 2 minutes post setting change 95% (resting post activity) BIPAP on CPAP setting. FiO2 55% FiO@ BIPAP on CPAP setting. FiO2 70% FiO@ BIPAP on CPAP setting. FiO2 55% FiO@ BIPAP on CPAP setting. FiO2 50% FiO@ Observations: Patient presents resting on 50% FiO2. For OOB activity, FiO2 was raised to 70%. Patient requires 5-6 minute recovery breaks after brief periods of activity. After completing functional activity in bathroom, patient was able to ambulate back to bedside and maintain standing for 2 minutes 30 seconds before transferring back to supine (1 minute improvement from previous session). Activity tolerance: poor plus - limited by respiratory status at this time. Pt continues to be unable to perform activities of daily living without frequent and extended rest breaks during activity. Cognitive/Perceptual: Alert and oriented x 4, follows multi step commands 100%, good safety awareness and insight into deficits. Motivated to continue improving with therapy and demonstrates overall good understanding of/insight into medical status. Treatment/Therapeutic Exercise: Treatment session this date focused on ADL training Functional transfer training Bed mobility Safety awareness Patient/Family Teaching: Mobility and Self care Equipment Issued: none Update Treatment Plan/Goals : Pt continues to benefit from skilled OT to improve independence with activities of daily living, increase strength, endurance, range of motion and decrease pain. Short Term Goals: Patient will perform grooming?Standing at sink and With modified independence Patient will perform lower extremity dressing?With modified independence Patient will perform toileting?With modified independence Residential Goal:Patient to discharge to appropriate next level of inpatient care If patient is discharged from the facility, this note serves as a discharge note if further occupational therapy visits did not occur. Following therapy session, patient left in bed, with call light within reach and with RN, Dieter lowery. Vania Crane, OT * Amy Anderson, PT - 03/24/2020 1:55 PM CDT [facility] Physical Medicine and Rehabilitation PhysicalTherapy Progress Note ? Patient: Jalil Luis [facility] Record Number: [id number] Date of : 1970 Age: [age] year old ? Pt is COVID POSITIVE.??PT and OT wear goggles, N95 mask, alva covers, face shield, gown, and gloves during session.??Co Treat with OT due to medical complexity and level of skilled assist required, especially due to vitals status/O2 needs.? Discharge Recommendation:??Patient will benefit from multidisciplinary inpatient therapies.??Recommendation changed to LTAC due to current high level of O2 requirement and decreased endurance.? Subjective: My insurance is the last thing I need to happen before I can go to the facility. I am hoping to go soon so I can get more therapy! ?? Patient currently using no assistive device. Mental Status: Alert, oriented x4. Pleasant and cooperative. ?? At start of therapy session, patient found in bed and with no alarm. ?? Pain: Patient has 0 out of 10 pain. Nurse notified. ?? Weight Bearing Status: no restrictions ?? Mobility: ?? Rolling: not tested ?? Supine to Sit:Independent ?? Sit to Supine: Independent ?? Sit to Stand:Independent Stand By Assist ?? Bed to Chair: not tested ?? Gait: Device:none ?? Assistance: Stand By Assist for line management ?? Distance: 10ft, 15ft Deviations: Pt ambulates to bathroom, then to sink and back to bed. Able to stand at bedside prior to resting in bed. Pt occasionally holds doorframe for balance. ?? Balance: ?? Static Sitting: good ?? Dynamic sitting: good ?? Static Standing: good minus ?? Dynamic Standing: fair plus ?? Stairs : NT ?? Vitals: Rest HR: ?? SpO2 ?? SpO2 ?? BIPAP on CPAP setting. FiO2 55% FiO@ Ex/Gait/Activity Without 02 HR: 131 ?? 113 ?? 115 ?? 115 ? 161 ?? 156 ?? 152 ?? 136 ?? 136 ?? 135 ?? 136 ?? 151 165 ? 160 ?? 150 ?? 135 ?? 133 ?? 168 ? 166 ?? 155 ?? 153 ?? 158 ?? 137 129 131 132 135 ? 130 ?? 133 ? 126 SpO2 90% donning socks in bed 89% 1 minute post socks 93% 2 minutes post socks 98% 4 minutes post socks ?? 84% post toilet transfer 88% 1 minute post toilet transfer 88% 2 minutes post toilet transfer 93% 3 minutes post toilet transfer 97% 4 minutes post toilet transfer 97% 5 minutes post toilet transfer 98% 6 minutes post toilet transfer 94% pericare 88% immediately post pericare/coughing 90% 1 minute post pericare 91% 2 minutes post pericare 96% 3 minutes post pericare 97% 4 minutes post pericare 81% after hand hygiene at sink, amb to bed 90% 1 minute standing at EOB 90% 2 minutes standing at EOB 90% during sit>supine 81% 1 minute post transfer 85% 2 minutes post 96% 3 minutes post 98% 4 minutes post 99% 5 minutes post 93% post don/doffing gown in bed 95% 1 minute post gown 95% 2 minutes post setting change ? 95% (resting post activity) ? BIPAP on CPAP setting. FiO2 55% FiO@ ? BIPAP on CPAP setting. FiO2 70% FiO@ ? BIPAP on CPAP setting. FiO2 55% FiO@ ?? BIPAP on CPAP setting. FiO2 50% FiO@ Observations: Patient presents resting on 50% FiO2. For OOB activity, FiO2 was raised to 70%. Patient requires 5-6 minute recovery breaks after brief periods of activity. After completing functional activity in bathroom, patient was able to ambulate back to bedside and maintain standing for 2 minutes 30 seconds before transferring back to supine (1 minute improvement from previous session). ?? Activity Tolerance: Patient's activity tolerance: poor plus to fair minus --limited by O2 status, but improving each day. ? Treatment/therapeutic Exercise: Pt donns socks from bed level, rests in bed, then ambulates from bed to toilet. He requires seated rest break to recover on toilet but able to demo improved SPO2 response. He performs esvin care (see OT note), rests for less time as compared to previous sessions, thenstands to wash hands at sink. He ambulates back to bedside but is able to remain standing for 2 minutes and 30 seconds prior to transferring into bed (1 minute longer than yesterdays session). Pt recovers from bed level and then is able to be weaned down from 70% to 60% to 55% then 50% at rest. Overall pt is able to demonstrate improved tolerance with activity, requiring less rest breaks today between each task as compared to previous sessions. At end of session, pt reports he feels rested and recovered, even on 50% FIO2. ?? Patient/Family Teaching: Exercise, Gait and Mobility Patient demonstrated Good understanding of instructions given. ? Short Term Goals: Goal Formation?With patient Patient will perform bed mobility:??Independent??(MET 03/15) Patient will transfer sit to/from stand:??Independent (MET 03/15) Patient will transfer bed to/from chair:??Independent (updated 03/15) Patient will ambulate??50??feet with Stand By Assist??and appropriate AD Patient will ascend/descend??10??steps: Stand By Assist??and hand rail assist?? Patient will perform home exercise program independently ?? Family Nurse Practitioner Goal(s): Patient to be independent/baseline with functional mobility and self care and be able to safely discharge to prior level of care ?? Update Treatment Plan: Continue with current PT plan of care to improve safety and functional mobility, especially focusing on progressing gait, standing tolerance. Pt agrees to sit up in chair this weekend. ?? If patient is discharged from the facility, this note serves as a discharge note if further physical therapy visits did not occur. ?? Following therapy session, patient left in bed, with call light within reach and with RN Dieter aware. ?? Amy Anderson, PT 03/24/2020 * Alecia Aldana RN - 03/24/2020 11:51 AM CDT Case Management Progress Note Anticipated level of care at discharge: Family Nurse Practitioner Acute Care (LTAC) Discharge Plan: Patient admitted with COVID and hypoxia. Patient is currently on high flow nasal cannula and full face CPAP. CM is working on LTAC placement at discharge. [facility] is out of network with his insurance but he is not willing to go to [facility] due to losing a family member at [facility]. [facility] has submitted to insurance for authorization/approval for a single case agreement ref #[id number]. Jessica with [facility] stated authorization is still pending. Basic Needs Assessment (BNA) Score: 9 Complex Needs Assessment (CANINE SERVICE TEACHER) Score: N/A Social Support Domain Score: Medical Status and Health Trajectory Domain Score: Medical Home and Access to Services Domain Score: Anticipated Discharge Date: Anticipated Discharge Date: 03/27/20 Equipment at Home: Equipment At Home: None Pharmacy benefit: Yes Name: Alecia Aldana RN * Lila Cavazos RCP - 03/24/2020 9:43 AM CDT 03/24/20 0941 Mask/Prong Care Mask/Prongs Type FFM (Large) Skin Condition around mask/prongs Intact Preventative Measures Other (Mepilex ) Reagan Scale = 21 no redness noted. * Asim Ramirez, JOSE DAVID-ERIKA - 03/24/2020 8:58 AM CDT Autologous Hematopoietic Stem Cell Daily Note: PATIENT IDENTIFIERS: JALIL LUIS is a 49 year old male who is Day +156 (Day 0 is 10/20/19) of an autologous peripheral blood stem cell transplant with a 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 INTERVAL HISTORY: Early this AM Mr. Luis started experiencing throbbing pain to bilateral knees Pain feels as if it is in the joint, denies calf tenderness, numbness, tingling, or back/neck pain Denies N/V/F/C/D COVID inflammatory markers mildly improved Resp status stable Continues on 50 - 55% fio2 on CPAP alternating between HFNC Denies SOB or difficulty breathing at baseline ROS: A comprehensive review of systems was negative except for: as noted above MEDICATIONS FOR CURRENT ENCOUNTER: SCHEDULED MEDICATIONS: 0.9% NaCl injection 3 mL, Intracatheter, q8h albuterol HFA (PROVENTIL;VENTOLIN;PROAIR) 108 (90 Base) MCG/ACT inhaler 2 puff, Inhalation, q4h artificial tears ophthalmic ointment, Each Eye, q8h ascorbic acid (VITAMIN C) 3,000 mg in 0.9% NaCl IV IVPB, Intravenous, q6h budesonide-formoterol (SYMBICORT) 80-4.5 MCG/ACT inhaler 2 puff, Inhalation, BID enoxaparin (LOVENOX) injection 120 mg, Subcutaneous, q12h escitalopram (LEXAPRO) tablet 10 mg, Oral, QDAY pantoprazole EC (PROTONIX) tablet 40 mg, Oral, QDAY penicillin V potassium (VEETIDS) solution 250 mg, Oral, q12h predniSONE (DELTASONE) tablet 50 mg, Oral, QDAY WITH BREAKFAST rOPINIRole (REQUIP) tablet 0.25 mg, Oral, AT BEDTIME sulfamethoxazole-trimethoprim (BACTRIM DS; SEPTRA DS) 800-160 MG tablet 1 tablet, Oral, MON, WED AND FRI thiamine (VITAMIN B-1) tablet 200 mg, Oral, q12h traMADol (ULTRAM) tablet 50 mg, Oral, q8h valACYclovir (VALTREX) tablet 500 mg, Enteral Tube, BID vitamin D3-cholecalciferol (CHOLECALCIFEROL) 25 MCG (1000 UNITS) tablet 2,000 Units, Oral, QDAY ?? zinc gluconate tablet 50 mg, Oral, QDAY ?? CONTINUOUS MEDICATIONS: PRN MEDICATIONS: 0.9% NaCl injection 1-10 mL, Intracatheter, PRN acetaminophen (TYLENOL) tablet 325 mg, Oral, q4h PRN magnesium sulfate 2 g in 50 mL bolus, Intravenous, PRN ondansetron (disintegrating) (ZOFRAN ODT) tablet 4 mg, Oral, q8h PRN ondansetron (ZOFRAN) injection 4 mg, Intravenous, q8h PRN oxyCODONE (immediate release) (ROXICODONE) tablet 5 mg, Oral, q4h PRN prochlorperazine (COMPAZINE) injection 10 mg, Intravenous, q6h PRN prochlorperazine (COMPAZINE) tablet 5 mg, Oral, q8h PRN ?? saline nasal spray (OCEAN; BABY AYR) 0.65 % nasal spray 2 spray, Each Nostril, q2h PRN VITALS: Vitals: 03/24/20 0056 03/24/20 0519 03/24/20 0845 03/24/20 0941 BP: 118/79 116/79 135/89 Pulse: 102 96 (!) 116 108 Resp: 18 18 20 Temp: 98.1 ??F 98 ??F 97.9 ??F SpO2: 99% 98% 97% 98% Weight: Height: Wt Readings from Last 3 Encounters: 03/23/20 111.5 kg (245 lb 13 oz) 02/26/20 120.2 kg (265 lb) 11/15/19 123.4 kg (272 lb) Date 03/23/20 07 - 03/24/20 0659 03/24/20699 - 03/25/20 0659 Shift [id number] 3541-7518 24 Hour Total 1415-4894 7342-9153 24 Hour Total INTAKE P.O. 590 590 960 960 I.V.(mL/kg/hr) 9.5(0) 394.6(0.3) 404.2(0.2) Shift Total(mL/kg) 599.5(5.4) 394.6(3.5) 994.2(8.9) 960(8.6) 960(8.6) OUTPUT Urine(mL/kg/hr) 900(0.7) 950(0.7) 1850(0.7) 300 300 Shift Total(mL/kg) 900(8.1) 950(8.5) 1850(16.6) 300(2.7) 300(2.7) NET -300.5 -555.4 -855.9 660 660 Weight (kg) 111.5 111.5 111.5 111.5 111.5 111.5 PHYSICAL EXAM: General appearance - alert, well appearing, in no distress, and acyanotic in no respiratory distress Mental status - alert, oriented to person, place, and time, normal mood, behavior, speech, dress, motor activity, and thought processes, affect appropriate to mood Mouth - mucous membranes moist, pharynx normal without lesions Chest - diminished in bases, otherwise clear to auscultation, no wheezes, rales or rhonchi, symmetric air entry, no tachypnea, retractions or cyanosis Heart - normal rate and regular rhythm, no murmurs noted Abdomen - soft, nontender, nondistended, no masses or organomegaly, bowel sounds normal Neurological - alert, oriented, normal speech, no focal findings or movement disorder noted Musculoskeletal - BLE joint tenderness in knees with decreased IVY 2/2 pain, no deformity, swelling, or erythema, no calf or muscular tenderness noted, no neuropathy Extremities - peripheral pulses normal, no pedal edema, no clubbing or cyanosis Skin - normal coloration and turgor, no rashes, no suspicious skin lesions noted LABS: Recent Labs Component Name 03/24/20 0029 03/22/20 0046 03/21/20 0213 03/18/20 2357 03/15/20 0027 WBC 16.8* 14.3* 13.6* - 16.8* - 17.9* RBC 3.40* 3.42* 3.47* - 3.42* - 3.09* HGB 9.9* 10.0* 10.0* - 10.0* - 8.8* HCT 30.4* 30.2* 30.4* - 30.1* - 26.2* MCV 89.4 88.3 87.6 - 88.0 - 84.8 MCH 29.1 29.2 28.8 - 29.2 - 28.5 MCHC 32.6 33.1 32.9 - 33.2 - 33.6 PLTCOUNT 240 205 192 - 188 - 181 RDWSD 72.8* 69.9* 67.5* - 62.7* - 54.0* RDW 23.2* 22.3* 22.1* - 21.2* - 18.3* MPV 12.9* 12.4 - - - - 13.8* NRBCABS 0.74* 0.58* 0.77* - 1.83* - 0.34* NRBCAUTOPCT 4.4* 4.1* 5.7* - 10.9* - 1.9* NEUTPCT 81.6* 83.6* 82.7* - - - 89.7* LYMPHSPCT 7.2* 6.8* 7.1* - - - 3.1* MONOPCT 7.5 5.3 5.2 - - - 3.3 EOSPCT 0.6 0.5 0.8 - - - 0.1 BASOPCT 0.3 0.3 0.2 - - - 0.1 IMMGRANSPCT 2.8* 3.5* 4.0* - - - 3.7* NEUTABS 13.7* 12.0* 11.3* - 15.96* - 16.0* LYMPHS 1.2 1.0 1.0 - 0.17* - 0.6* MONO 1.25* 0.75* 0.71* - 0.50 - 0.59 EOS 0.10 0.07 0.11 - - - 0.01 BASO 0.05 0.04 0.03 - - - 0.02 TOTCELLCNT - - - - 100 - - - = values in this interval not displayed. Recent Labs Component Name 03/24/20 0029 03/22/20 0046 03/21/20 0213 BUN 20 15 16 CREATININE 0.9 0.8 0.8 NA 139 140 139 POTASSIUM 4.2 4.2 4.2 CL 100 98 99 CO2 26 32* 30* CALCIUM 8.8 8.4 8.6 PROT 5.5* 5.4* 5.4* ALB 2.6* 2.4* 2.4* TBILI 0.2 0.2 0.2 ALKPHOS 93 86 91 ALT 52 46 36 AST 20 19 15 ANIONGAP 17 14 14 BCR 22 19 20 OSMOLALITY 292 291 289 AGRATIO 0.9* 0.8* 0.8* EGFR >60 >60 >60 Recent Labs Component Name 03/24/20 0029 03/22/20 0046 03/21/20 0213 MAGNESIUM 1.8 2.0 1.9 Recent Labs Component Name 03/24/20 0029 03/22/20 0046 03/21/20 0213 PHOS 4.1 3.9 3.9 Recent Labs Component Name 03/24/20 0029 03/22/20 0046 03/21/20 0213 CRP 2.2* 3.0* 3.2* LDH Total Date Value Ref Range Status 03/24/2020 369 (H) 125 - 243 Units/L Final 03/22/2020 390 (H) 125 - 243 Units/L Final 03/20/2020 395 (H) 125 - 243 Units/L Final Recent Labs Component Name 03/24/20 0029 03/22/20 0046 03/20/20 0844 FERRITIN 658* 737* 703* Recent Labs Component Name 03/24/20 0029 03/22/20 0046 03/20/20 0844 ESR 53* 50* 51* Recurring Labs: Ig03/13/20 162, IVIG given. 03/22/20 - 509 CD4: 02/27/20-68 PATHOLOGY: BMBX (03/03/20): Path - Normocellular marrow with maturing trilineage hematopoiesis. NISHA Flow - NISHA Cyto - 46,XY FISH - negative INFECTIOUS: BCx (03/24/20): pending BCx (03/21/20): NGTD Covid swab (03/07/20): positive Bronch (03/06/20): COVID +, otherwise negative. Path reactive alveolar parenchyma with mild chronic inflammation RADIOLOGY: CXr (03/20/20): Bilateral interstitial and airspace opacities are mildly improved. No new areas of airspace consolidation observed. There is suggestion of small bilateral pleural effusions with adjacent atelectasis or airspace disease. CXr (03/10/20): Multifocal consolidation in both lungs, concerning for multifocal pneumonia, improvedfrom prior. Interstitial opacities could also represent underlying mild pulmonary edema, improved from prior. Venous Duplex (03/03/20): Negative for DVT CT Chest (03/02/30): Altered distribution of prominent geographic GGO within upper and lower lung zones bilaterally. Re-demonstration of nonocclusive thrombus within left brachiocephalic vein which extends to the superior vena cava. ECHO (03/02/20): ~LVEF 68% ASSESSMENT/PLAN: JALIL LUIS is a 49 year old male, who is Day +156 (Day 0 is 10/20/19) of an autologous peripheral blood stem cell transplant with a 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 SYSTEMS: Marginal Zone Lymphoma in CR2 pre-transplant Schema: 5A Prep: BEAM, Cell count 10.4 x 10^6 CD34+cells/kg in 5 bags; day [address] A/P -- BMBx completed (03/03) -Transfusion threshold: Hgb > 7; Plt > 10; CMV +, transfusion pre meds: none needed -Engraftment: ANC day +9 (10/29/19); plt engraftment 11/03/19 (day +14) -given overall stability will check CBCw/Diff MWF OI prophylaxis: Bacterial:??Pen VK PJP:??Bactrim DS MWF Viral: Valtrex 500mg BID COVID -tested positive early January, asymptomatic at that time -Covid from bronch 03/07 and PROVISIONING ANALYST swab 03/07 both positive -received remdesivir 03/08 - 03/12 & convalescent plasma 03/10 -given overall stability will check labs every MWF at this point -CXr appears somewhat improved 03/20 vs 03/10 -following discussion with pulm pt will likely benefit from longer steroid taper than outlined in [facility] protocol -steroids switched to pred 03/18 then tapered to 60mg 03/20; >>start slow taper over 2-3 weeks on 03/23 >>taper by 10mg every 4 days>>03/23 - 50mg; next taper 03/26 -continue ATC Hypoxia -marginal improvement over the last 24 hours, titrated CPAP from 70% to 50% -started long acting beta agonist/corticosteroid (symbicort) 03/22 -09/05 COVID, see above -intubated 03/06/20 -03/08/20>>now on CPAP switching to HFNC for meals -Bronch'd 03/06/20>>COVID + otherwise unremarkable -continues to be labile, likely 2-3 weeks before significant improvement and would likely benefit from LTACH while tapering steroids and weaning oxygen -follow BCx sent 03/21 to r/o underlying bacterial infection Arthralgias -new onset bilateral knee pain without erythema or swelling -unlikely DVT given current ACT -? 09/05 known COVID -denies any recent trauma -BCx drawn in an abundance of caution -added PRN oxy 5 and and scheduled Celebrex 100mg BID today (03/24) Folliculitis -stable -keep skin clean and dry, will follow closely Right IJ venous clot 09/27/19 -Lovenox 120 mg Q12H while inpt -previously on Eliquis 5 mg BID Pertinent History: Persistent Fevers: reason for admission, completed 7D course of cem and vanco on 03/08/20 Anxiety/Depression- Lexapro 10 mg daily Restless Leg Syndrome - Requip 0.25 mg QHS Headaches tramadol 50 mg q8h. LP completed 03/01. Results negative for meningitis Discharge Planning: Patients preferred contact information: cell Caregiver: sister, girlfriend Preferred D/C Pharmacy: [facility] Intended lodging: home Referring provider: Cesar Tavares Disposition: Remain on 8S for O2 support, working on placement in LTAC given likely prolonged weaning of oxygen Asim Ramirez APRN, TALENT ACQUISITION OPERATIONS MANAGER-C [facility] Marrow and Transplant Pager: [phone] Associated attestation - Tony Dumont MD - 03/24/2020 1:06 PM CDT I independently interviewed and examined Jalil Luis with the BMT advanced practice provider. I reviewed my findings and assessment with the advanced practice provider and the patient. I reviewed the below note. Please see note for full detail.I agree with the findings and plan of care as documented by the advanced practice provider Additional notes by me include: Patient is day +156 post autologous stem cell transplant for marginal zone lymphoma. He currently has covd 19 infection involving his lungs. All isn't limited markers continue to improve. He continues to remain on prednisone which is being tapered over the next 2-3 weeks. He is at high risk of infection given high-dose steroids and also having history of splenectomy andbeing treated with rituximab. We'll transition him to long-term acute care with the plan to wean him off oxygen. * Inga Cortez, OT - 03/23/2020 2:53 PM CDT [facility] Physical Medicine and Rehabilitation Occupational Therapy Progress Note Patient: Jalil Luis [facility] Record Number: [id number] Date of : 1970 Age: [age] year old Co-Tx w/ PT Patient is COVID-19 positive. PPE donned by therapist throughout session - disposable gown, gloves, N95 mask, eye protection, faceshield, hair net, alva cover and shoe covers. Discharge Recommendation: Patient will benefit from multidisciplinary inpatient therapies (LTAC dueto profound 02 needs and poor endurance). Precautions: FALLS SAFETY *COVID-19 +* Subjective: I am ready for y'all At start of therapy session, patient found in bed and with no alarm. Pain: Patient has 0 out of 10 pain in body. Nurse notified. Activities of Daily Living Feeding:NT Grooming/Bathing: Minimal assist Stand By Assist --can perform the task at the sink (handwashing), but needs MIN A for lines and to closely monitor his mobility 2/2 his vitals (see below section) Upper Extremity Dressing: not tested Lower Extremity Dressing: Stand By Assist --but desats and has to rest in bed (see vitals section) Toileting/Transfers: Minimal assist Stand By Assist --similar to socks. Needs 10 mins of recovering. Will desat when straining on toilet and when talking Mobility: Assist device: none Supine to/from Sit:Stand By Assist Sit to/from Stand: Stand By Assist Bed to/from Chair: not tested Functional Mobility: From bed to toilet to sink to bed with Minimal assist Stand By Assist Splint Issued/Checked: none Splint Check Completed: N/A Balance: Static Sitting: good Dynamic Sitting: good Static Standing: good minus Dynamic Standing: fair plus Vitals: (*Assess the 3 levels of oxygen saturations both for room air and 02 unless rest on room air is 88% or less). Rest BP: 148/84 HR: 122 Sp02 ?? Sp02 95-97% at rest in bed Room Air ?? L O2 ?? BIPAP on CPAP mode FIO2 50% Ex/Gait/Activity Without 02 BP: ?? HR: ?? Sp02 ?? Room Air ?? Ex/Gait/Activity With 02 BP: ?? HR: 158 134 128 125 127 ?? 155 161 148 152 140 152 (strain) 142 167 (cough) 154 149 139 140 160 158 146 140 144 138 169 166 (to bed) 141 138 162 (cough) 140 144 134 132 128 126 128 130 130 ?? 129 130 ? 127 135 ? 129 121 Sp02 88% donning socks in bed 92% 1 min post socks 93% 2 min post socks 95% 3 min post socks 98% 5 min post socks ?? 92% after toilet transfer 90% 1 min post toilet tx 87% 1.5 min post toilet tx 93% 2 min post toilet tx 95% 3 min post toilet tx 96% 4 min post toilet tx 96% 5 min post toilet tx 95% 6 min post toilet tx 93% 7 min post toilet tx 95% 8 min post toilet tx 94% 9 min post toilet tx 95% 10 min post toilet tx 87% esvin care 90% 1 min post esvin care 91% 2 min post esvin care 94% 3 min post esvin care 95% 4 min post esvin care 96% 5 min post esvin care 83% wash at sink and amb 90% 1 min post sink (transfers back to bed) 89% 3 min post sink 95% 5 min post sink 94% 6 min post sink (cough) 95% 7 min post sink 95% 8 min post sink 95% 9 min post sink 96% 10 min post sink 97% 11 min post sink 97% 12 min post sink 97% 13 min post sink 97% 14 min post sink 97% 16 min post sink ?? 95% after BIPAP change 94% after change ? 96% after BIPAP change 95% after change ? 95% after change 95% after change L O2 BIPAP on CPAP mode FIO2 60% ? BIPAP on CPAP mode FIO2 70% ? BIPAP on CPAP mode FIO2 60% ?? BIPAP on CPAP mode FIO2 60% ?? BIPAP on CPAP mode FIO2 55% Post Activity BP: ?? HR: 123 Sp02 ?? Sp02 96% L O2 ?? Room Air BIPAP on CPAP mode FIO2 55% Observations: Pt on 50% FIO2 when therapists arrive. He is bumped up to 60% when donning socks, is able to recover within 5 mins. For OOB activity, pt FIO2 raised to 70%; he is able to recover with increased time. Pt noted to have increased HR when straining or coughing on toilet. When coughing, ptnoted to have increased sound of cough, sounds productive but unable to cough up anything. After standing and ambulating to sink and washing hands, pt able to maintain standing for 1 min 30 secondsprior to transferring back to bed (has not been able to stand and wait before transferring to bed before in prior sessions). After resting in bed SPO2 and HR recovers. FIO2 is dropped to 60%, 55% andVSS. ?? Activity tolerance: poor plus; still needs about 10 mins of recovery time after making it to the toilet and after using the bathroom. Pt is still unable to perform basic ADLs w/out significant rest breaks and 02 needs. Cognitive/Perceptual: A&Ox4; is extremely pleasant, motivated, and always willing to participate. Follows 100% of commands. Is not impulsive. Treatment/Therapeutic Exercise: Treatment session this date focused on ADL training Functional transfer training Endurance training Bed mobility Energy conservation Safety awareness HEP training Patient/Family Teaching: Exercise, Gait, Mobility and Self care Equipment Issued: none Update Treatment Plan/Goals : Pt continues to benefit from skilled OT to improve independence with activities of daily living, increase strength, endurance, range of motion and decrease pain. Short Term Goals: Patient will perform grooming?Standing at sink and With modified independence Patient will perform lower extremity dressing?With modified independence Patient will perform toileting?With modified independence Family Nurse Practitioner Goal:Patient to discharge to appropriate next level of inpatient care If patient is discharged from the facility, this note serves as a discharge note if further occupational therapy visits did not occur. Following therapy session, patient left in bed, with call light within reach, with RNKeena aware and with RN/CP rehab cues written on white board. Inga Cortez OT * Amy Anderson PT - 03/23/2020 2:53 PM CDT [facility] Physical Medicine and Rehabilitation PhysicalTherapy Progress Note Patient: Jalil Luis Med Record Number: [id number] Date of : 1970 Age: [age] year old Pt is COVID POSITIVE.??PT and OT wear goggles, N95 mask, alva covers, face shield, gown, and gloves during session.??Co Treat with OT due to medical complexity and level of skilled assist required, especially due to vitals status.? Discharge Recommendation:??Patient will benefit from multidisciplinary inpatient therapies.??Recommendation changed to LTAC due to current high level of O2 requirement and decreased endurance.?? Subjective: I know they are looking into options about facilities I can go to. Patient currently using no assistive device. Mental Status: Alert, oriented x4. Pleasant and cooperative. At start of therapy session, patient found in bed and with no alarm. Pain: Patient has 0 out of 10 pain. Nurse notified. Weight Bearing Status: no restrictions Mobility: Rolling: not tested Supine to Sit:Independent Sit to Supine: Independent Sit to Stand:Independent Stand By Assist Bed to Chair: not tested Gait: Device:none Assistance: Stand By Assist Distance: 10ft, 15ft Deviations: Pt ambulates to bathroom, then to sink and back to bed. Balance: Static Sitting: good Dynamic sitting: good Static Standing: good minus Dynamic Standing: fair plus Stairs : NT Vitals: (*Assess the 3 levels of oxygen saturations both for room air and 02 unless rest on room air is 88% or less). Rest BP: 148/84 HR: 122 Sp02 Sp02 95-97% at rest in bed Room Air L O2 BIPAP on CPAP mode FIO2 50% Ex/Gait/Activity Without 02 BP: HR: Sp02 Room Air Ex/Gait/Activity With 02 BP: HR: 158 134 128 125 127 155 161 148 152 140 152 (strain) 142 167 (cough) 154 149 139 140 160 158 146 140 144 138 169 166 (to bed) 141 138 162 (cough) 140 144 134 132 128 126 128 130 130 129 130 127 135 129 121 Sp02 88% donning socks in bed 92% 1 min post socks 93% 2 min post socks 95% 3 min post socks 98% 5 min post socks 92% after toilet transfer 90% 1 min post toilet tx 87% 1.5 min post toilet tx 93% 2 min post toilet tx 95% 3 min post toilet tx 96% 4 min post toilet tx 96% 5 min post toilet tx 95% 6 min post toilet tx 93% 7 min post toilet tx 95% 8 min post toilet tx 94% 9 min post toilet tx 95% 10 min post toilet tx 87% esvin care 90% 1 min post esvin care 91% 2 min post esvin care 94% 3 min post esvin care 95% 4 min post esvin care 96% 5 min post esvin care 83% wash at sink and amb 90% 1 min post sink (transfers back to bed) 89% 3 min post sink 95% 5 min post sink 94% 6 min post sink (cough) 95% 7 min post sink 95% 8 min post sink 95% 9 min post sink 96% 10 min post sink 97% 11 min post sink 97% 12 min post sink 97% 13 min post sink 97% 14 min post sink 97% 16 min post sink 95% after BIPAP change 94% after change 96% after BIPAP change 95% after change 95% after change 95% after change L O2 BIPAP on CPAP mode FIO2 60% BIPAP on CPAP mode FIO2 70% BIPAP on CPAP mode FIO2 60% BIPAP on CPAP mode FIO2 60% BIPAP on CPAP mode FIO2 55% Post Activity BP: HR: 123 Sp02 Sp02 96% L O2 Room Air BIPAP on CPAP mode FIO2 55% Observations: Pt on 50% FIO2 when therapists arrive. He is bumped up to 60% when donning socks, is able to recover within 5 mins. For OOB activity, pt FIO2 raised to 70%; he is able to recover with increased time. Pt noted to have increased HR when straining or coughing on toilet. When coughing, ptnoted to have increased sound of cough, sounds productive but unable to cough up anything. After standing and ambulating to sink and washing hands, pt able to maintain standing for 1 min 30 secondsprior to transferring back to bed (has not been able to stand and wait before transferring to bed before in prior sessions). After resting in bed SPO2 and HR recovers. FIO2 is dropped to 60%, 55% andVSS. Activity Tolerance: Patient's activity tolerance: poor plus --limited by O2 status, but improving each day. Treatment/therapeutic Exercise: Pt donns socks from bed level, rests in bed, then ambulates from bed to toilet. He requires seated rest break to recover on toilet but able to demo improved SPO2 response. He performs esvin care (see OT note), rests, then stands to wash hands at sink. He ambulates back to bedside but is able to remain standing x1min 30 seconds prior to transferring into bed. Pt recovers from bed level and then is able to be weaned down from 70% to 60% then 55%. Overall pt is able to demonstrate improved tolerance to activity from session to session, however still limited by HR/O2 status change with mobility/high O2 need. Patient/Family Teaching: Exercise, Gait and Mobility Patient demonstrated Good understanding of instructions given. Short Term Goals: Goal Formation?With patient Patient will perform bed mobility:??Independent??(MET 03/15) Patient will transfer sit to/from stand:??Independent (MET 03/15) Patient will transfer bed to/from chair:??Independent (updated 03/15) Patient will ambulate??50??feet with Stand By Assist??and appropriate AD Patient will ascend/descend??10??steps: Stand By Assist??and hand rail assist?? Patient will perform home exercise program independently ?? Family Nurse Practitioner Goal(s): Patient to be independent/baseline with functional mobility and self care and be able to safely discharge to prior level of care Update Treatment Plan: Continue with current PT plan of care to improve safety and functional mobility, especially focusing on progressing gait, standing tolerance. If patient is discharged from the facility, this note serves as a discharge note if further physical therapy visits did not occur. Following therapy session, patient left in bed, with call light within reach and with RN aware. Amy Anderson, PT 03/23/2020 * Keena Hernandez RN - 03/23/2020 12:28 PM CDT Problem: Fall Risk Goal: Fall risk and fall related injury risk are minimized Outcome: Ongoing Problem: Isolation Goal: Prevent Transmission of Infection Outcome: Ongoing Problem: Protective Precautions Goal: Patient will remain free of Nosocomial Infections Outcome: Ongoing Problem: Impaired Gas Exchange Goal: Resp rate/effort will be within specified limits Outcome: Ongoing * Alecia Aldana RN - 03/23/2020 11:06 AM CDT [facility] has submitted information to insurance for single case agreement. [facility] will update CM once more information is available. Authorization started with insurance ref # [id number] for approval with single case agreement. Sissy Aldana RN, BSN Wrapper Stitcher [phone] * Asim Ramirez APRN-ERIKA - 03/23/2020 8:06 AM CDT Autologous Hematopoietic Stem Cell Daily Note: PATIENT IDENTIFIERS: JALIL LUIS is a 49 year old male who is Day +155 (Day 0 is 10/20/19) of an autologous peripheral blood stem cell transplant with a 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 INTERVAL HISTORY: Uneventful evening Feeling well this morning BCx from 03/21 remain negative CPAP remains on 50% fiO2 Using HFNC while eating and intermittently throughout the day Denies N/V/F/C/D Reports stable bowel and bladder No labs today Working with PT ROS: A comprehensive review of systems was negative except for: as noted above MEDICATIONS FOR CURRENT ENCOUNTER: SCHEDULED MEDICATIONS: 0.9% NaCl injection 3 mL, Intracatheter, q8h albuterol HFA (PROVENTIL;VENTOLIN;PROAIR) 108 (90 Base) MCG/ACT inhaler 2 puff, Inhalation, q4h artificial tears ophthalmic ointment, Each Eye, q8h ascorbic acid (VITAMIN C) 3,000 mg in 0.9% NaCl IV IVPB, Intravenous, q6h budesonide-formoterol (SYMBICORT) 80-4.5 MCG/ACT inhaler 2 puff, Inhalation, BID enoxaparin (LOVENOX) injection 120 mg, Subcutaneous, q12h escitalopram (LEXAPRO) tablet 10 mg, Oral, QDAY pantoprazole EC (PROTONIX) tablet 40 mg, Oral, QDAY penicillin V potassium (VEETIDS) solution 250 mg, Oral, q12h predniSONE (DELTASONE) tablet 50 mg, Oral, QDAY WITH BREAKFAST rOPINIRole (REQUIP) tablet 0.25 mg, Oral, AT BEDTIME sulfamethoxazole-trimethoprim (BACTRIM DS; SEPTRA DS) 800-160 MG tablet 1 tablet, Oral, MON, WED AND FRI thiamine (VITAMIN B-1) tablet 200 mg, Oral, q12h traMADol (ULTRAM) tablet 50 mg, Oral, q8h valACYclovir (VALTREX) tablet 500 mg, Enteral Tube, BID vitamin D3-cholecalciferol (CHOLECALCIFEROL) 25 MCG (1000 UNITS) tablet 2,000 Units, Oral, QDAY ?? zinc gluconate tablet 50 mg, Oral, QDAY ?? CONTINUOUS MEDICATIONS: PRN MEDICATIONS: 0.9% NaCl injection 1-10 mL, Intracatheter, PRN acetaminophen (TYLENOL) tablet 325 mg, Oral, q4h PRN magnesium sulfate 2 g in 50 mL bolus, Intravenous, PRN ondansetron (disintegrating) (ZOFRAN ODT) tablet 4 mg, Oral, q8h PRN ondansetron (ZOFRAN) injection 4 mg, Intravenous, q8h PRN prochlorperazine (COMPAZINE) injection 10 mg, Intravenous, q6h PRN prochlorperazine (COMPAZINE) tablet 5 mg, Oral, q8h PRN ?? saline nasal spray (OCEAN; BABY AYR) 0.65 % nasal spray 2 spray, Each Nostril, q2h PRN VITALS: Vitals: 03/23/20 0043 03/23/20 0439 03/23/20 0514 03/23/20 0756 BP: 120/82 124/81 147/98 Pulse: 84 80 85 86 Resp: 18 18 22 Temp: 97.9 ??F 98.4 ??F 97.8 ??F SpO2: 95% 96% 95% 90% Weight: 111.5 kg (245 lb 13 oz) Height: Wt Readings from Last 3 Encounters: 03/23/20 111.5 kg (245 lb 13 oz) 02/26/20 120.2 kg (265 lb) 11/15/19 123.4 kg (272 lb) Date 03/22/20 07 - 03/23/20 0659 03/23/20 0700 - 03/24/20 0659 Shift 6849-8840 9792-0436 24 Hour Total 6665-2042 9055-7985 24 Hour Total INTAKE P.O. 720 720 I.V.(mL/kg/hr) 102.1(0.1) 400.3(0.3) 502.4(0.2) Shift Total(mL/kg) 822.1(7.1) 400.3(3.6) 1222.4(11) OUTPUT Urine(mL/kg/hr) 1101(0.8) 1000(0.7) 2101(0.8) Shift Total(mL/kg) 1101(9.5) 1000(9) 2101(18.8) NET -278.9 -599.7 -878.6 Weight (kg) 115.7 111.5 111.5 111.5 111.5 111.5 PHYSICAL EXAM: General appearance - alert, well appearing, in no distress, and acyanotic in no respiratory distress Mental status - alert, oriented to person, place, and time, normal mood, behavior, speech, dress, motor activity, and thought processes, affect appropriate to mood Mouth - mucous membranes moist, pharynx normal without lesions Chest - fine crackles in bilateral bases, no wheezes, symmetric air entry, no tachypnea, retractions or cyanosis Heart - normal rate and regular rhythm, no murmurs noted Abdomen - soft, nontender, nondistended, no masses or organomegaly, bowel sounds normal Neurological - alert, oriented, normal speech, no focal findings or movement disorder noted Musculoskeletal - no joint tenderness, deformity or swelling, no muscular tenderness noted Extremities - peripheral pulses normal, no pedal edema, no clubbing or cyanosis Skin - normal coloration and turgor, no rashes, no suspicious skin lesions noted LABS: Recent Labs Component Name 03/22/20 0046 03/21/20 0213 03/20/20 0844 03/18/20 2357 03/15/20 0027 03/14/20 0023 WBC 14.3* 13.6* 16.3* 16.8* - 17.9* 20.8* RBC 3.42* 3.47* 3.70* 3.42* - 3.09* 3.19* HGB 10.0* 10.0* 10.8* 10.0* - 8.8* 9.1* HCT 30.2* 30.4* 33.0* 30.1* - 26.2* 26.8* MCV 88.3 87.6 89.2 88.0 - 84.8 84.0 MCH 29.2 28.8 29.2 29.2 - 28.5 28.5 MCHC 33.1 32.9 32.7 33.2 - 33.6 34.0 PLTCOUNT 205 192 181 188 - 181 215 RDWSD 69.9* 67.5* 66.4* 62.7* - 54.0* 52.7* RDW 22.3* 22.1* 22.0* 21.2* - 18.3* 18.0* MPV 12.4 - - - - 13.8* 12.9* NRBCABS 0.58* 0.77* 1.22* 1.83* - 0.34* 0.19* NRBCAUTOPCT 4.1* 5.7* 7.5* 10.9* - 1.9* 0.9* NEUTPCT 83.6* 82.7* 83.2* - - 89.7* - LYMPHSPCT 6.8* 7.1* 4.9* - - 3.1* - MONOPCT 5.3 5.2 4.2 - - 3.3 - EOSPCT 0.5 0.8 2.3 - - 0.1 - BASOPCT 0.3 0.2 0.4 - - 0.1 - IMMGRANSPCT 3.5* 4.0* 5.0* - - 3.7* - NEUTABS 12.0* 11.3* 13.6* 15.96* - 16.0* 20.38* LYMPHS 1.0 1.0 0.8 0.17* - 0.6* 0.21* MONO 0.75* 0.71* 0.69* 0.50 - 0.59 0.21 EOS 0.07 0.11 0.37 - - 0.01 - BASO 0.04 0.03 0.06 - - 0.02 - TOTCELLCNT - - - 100 - - 100 - = values in this interval not displayed. Recent Labs Component Name 03/22/204503/21/2021203/20/20 0844 BUN 15 16 23 CREATININE 0.8 0.8 0.8 NA 140 139 141 POTASSIUM 4.2 4.2 4.4 CL 98 99 100 CO2 32* 30* 31* CALCIUM 8.4 8.6 8.7 PROT 5.4* 5.4* 5.6* ALB 2.4* 2.4* 2.5* TBILI 0.2 0.2 0.3 ALKPHOS 86 91 94 ALT 46 36 37 AST 19 15 17 ANIONGAP 14 14 14 BCR 19 20 29* OSMOLALITY 291 289 295 AGRATIO 0.8* 0.8* 0.8* EGFR >60 >60 >60 Recent Labs Component Name 03/22/204503/21/2021203/20/20 0844 MAGNESIUM 2.0 1.9 1.9 Recent Labs Component Name 03/22/204503/21/2021203/20/20 0844 PHOS 3.9 3.9 3.7 Recent Labs Component Name 03/22/204503/21/2021203/20/20 0844 CRP 3.0* 3.2* 1.9* LDH Total Date Value Ref Range Status 03/22/2020 390 (H) 125 - 243 Units/L Final 03/20/2020 395 (H) 125 - 243 Units/L Final 03/18/2020 384 (H) 125 - 243 Units/L Final Recent Labs Component Name 03/22/20 0046 03/20/20 0844 03/18/20 0014 FERRITIN 737* 703* 775* Recent Labs Component Name 03/22/20 0046 03/20/20 0844 03/18/20 0014 ESR 50* 51* 22* Recurring Labs: Ig03/13/20 162, IVIG given. 03/22/20 - 509 CD4: 02/27/20-68 PATHOLOGY: BMBX (03/03/20): Path - Normocellular marrow with maturing trilineage hematopoiesis. NISHA Flow - NISHA Cyto - 46,XY FISH - negative INFECTIOUS: BCx (03/21/20): NGTD Covid swab (03/07/20): positive Bronch (03/06/20): COVID +, otherwise negative. Path reactive alveolar parenchyma with mild chronic inflammation RADIOLOGY: CXr (03/20/20): Bilateral interstitial and airspace opacities are mildly improved. No new areas of airspace consolidation observed. There is suggestion of small bilateral pleural effusions with adjacent atelectasis or airspace disease. CXr (03/10/20): Multifocal consolidation in both lungs, concerning for multifocal pneumonia, improvedfrom prior. Interstitial opacities could also represent underlying mild pulmonary edema, improved from prior. Venous Duplex (03/03/20): Negative for DVT CT Chest (03/02/30): Altered distribution of prominent geographic GGO within upper and lower lung zones bilaterally. Re-demonstration of nonocclusive thrombus within left brachiocephalic vein which extends to the superior vena cava. ECHO (03/02/20): ~LVEF 68% ASSESSMENT/PLAN: JALIL LUIS is a 49 year old male, who is Day +155 (Day 0 is 10/20/19) of an autologous peripheral blood stem cell transplant with a 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 SYSTEMS: Marginal Zone Lymphoma in CR2 pre-transplant Schema: 5A Prep: BEAM, Cell count 10.4 x 10^6 CD34+cells/kg in 5 bags; day [address] A/P -- BMBx completed (03/03) -Transfusion threshold: Hgb > 7; Plt > 10; CMV +, transfusion pre meds: none needed -Engraftment: ANC day +9 (10/29/19); plt engraftment 11/03/19 (day +14) -given overall stability will check CBCw/Diff MWF OI prophylaxis: Bacterial:??Pen VK PJP:??Bactrim DS MWF Viral: Valtrex 500mg BID COVID -tested positive early January, asymptomatic at that time -Covid from bronch 03/07 and PROVISIONING ANALYST swab 03/07 both positive -received remdesivir 03/08 - 03/12 & convalescent plasma 03/10 -given overall stability will check labs every MWF at this point -CXr appears somewhat improved 03/20 vs 03/10 -following discussion with pulm pt will likely benefit from longer steroid taper than outlined in [facility] protocol -steroids switched to pred 03/18 then tapered to 60mg 03/20; >>start slow taper over 2-3 weeks on 03/23 >>taper by 10mg every 4 days>>03/23 - 50mg; next taper 03/26 -continue ATC Hypoxia -marginal improvement over the last 24 hours, titrated CPAP from 70% to 50% -started long acting beta agonist/corticosteroid (symbicort) 03/22 -2 COVID, see above -intubated 03/06/20 -03/08/20>>now on CPAP switching to HFNC for meals -Bronch'd 03/06/20>>COVID + otherwise unremarkable -continues to be labile, likely 2-3 weeks before significant improvement and would likely benefit from LTACH while tapering steroids and weaning oxygen -follow BCx sent 03/21 to r/o underlying bacterial infection Folliculitis -stable -keep skin clean and dry, will follow closely Right IJ venous clot 09/27/19 -Lovenox 120 mg Q12H while inpt -previously on Eliquis 5 mg BID Pertinent History: Persistent Fevers: reason for admission, completed 7D course of cem and vanco on 03/08/20 Anxiety/Depression- Lexapro 10 mg daily Restless Leg Syndrome - Requip 0.25 mg QHS Headaches tramadol 50 mg q8h. LP completed 03/01. Results negative for meningitis Discharge Planning: Patients preferred contact information: cell Caregiver: sister, girlfriend Preferred D/C [facility]acy: [facility] Intended lodging: home Referring provider: Cesar Tavares Disposition: Remain on 8S for O2 support, working on placement in LTAC given likely prolonged weaning of oxygen Asim Ramirez APRN, TALENT ACQUISITION OPERATIONS MANAGER-C [facility] Blood Marrow and Transplant Pager: [phone] Associated attestation - Tony Dumont MD - 03/23/2020 8:34 PM CDT I discussed the case of Jalil Luis with the BMT advanced practice provider. I reviewed my assessment with the advanced practice provider I reviewed the below note. Please see note for full detail.I agree with the findings and plan of care as documented by the advanced practice provider * Amy Anderson, PT - 03/22/2020 2:55 PM CDT [facility] Physical Medicine and Rehabilitation PhysicalTherapy Progress Note Patient: Jalil Luis Med Record Number: [id number] Date of : 1970 Age: [age] year old Pt is COVID POSITIVE.??PT and OT wear goggles, N95 mask, alva covers, face shield, gown, and gloves during session.??Co Treat with OT due to medical complexity and level of skilled assist required, especially due to vitals status.? Discharge Recommendation:??Patient will benefit from multidisciplinary inpatient therapies.??Recommendation changed to LTAC due to current high level of O2 requirement and decreased endurance.?? Subjective: I like to work on cars and jie around with them Patient currently using no assistive device. Mental Status:??Alert and oriented X4; 100% command follow. Pleasant and cooperative.? At start of therapy session, patient found??in bed and with no alarm. ?? Pain: Patient has??0??out of 10 pain reported. No follow up indicated.? Weight Bearing Status:??BLE WBAT?? Mobility: Rolling: not tested Supine to Sit:Independent Sit to Supine: Independent Sit to Stand:Stand By Assist Bed to Chair: not tested Gait: Device:none Assistance: Stand By Assist with assist for lines Distance: 10ft, 15ft Deviations: Pt requires assistance with lines. Unable to Balance: Static Sitting: good Dynamic sitting: good Static Standing: good minus Dynamic Standing: fair plus Stairs : NT Vitals: (*Assess the 3 levels of oxygen saturations both for room air and 02 unless rest on room air is 88% or less). Rest BP: HR: 116-122 Sp02 Sp02 95-96% at rest HOB raised Room Air L O2 BIPAP on CPAP 50% FIO2 Ex/Gait/Activity Without 02 BP: HR: Sp02 Room Air Ex/Gait/Activity With 02 BP: 130/92 HR: 156 131 125 168 153 151 147 151 140 139 141 140 157 160 153 138 135 166 145 140 164 163 142 137 128 132 125 122 127 126 Sp02 90-91% Donning socks longsitting 94% 1 min post socks 96% 2 min post socks 91% transfer to toilet 90% 1 min post transfer 91% 2 min post transfer 92% 3 min post transfer 93% 4 min post transfer 95% 5 min post transfer 95% 6 min post transfer 93% 8 min post transfer 96% 10 min post transfer 77% immediately following esvin care 85% 1 min post esvin 89% 2 min post esvin 93% 3 min post esvin 94% 4 min post esvin 86% 1 min post second bout esvin care 93% 3 min post second bout esvin 95% 4 min post second bout esvin 70% post amb to sink and back 82% 1 min post amb to sink and back 85% 2 min post amb to sink and back 93% 3 min post amb to sink and back 97% 4 min post amb to sink and back. 97% 6 min post amb to sink and back 96% after change of BIPAP settings 97% 2 mins after change in settings 96% after change of BIPAP settings 96% 2 mins after change in settings L O2 BIPAP on CPAP 70% FIO2 BIPAP on CPAP 65% FIO2 BIPAP on CPAP 60% FIO2 Post Activity BP: HR: 120 Sp02 Sp02 96% L O2 Room Air BIPAP on CPAP 60% FIO2 Observations: Pt reports that he has been on 50% FIO2 all day; he reports he feels overall more tired due to this. Pt able to tolerate activity on 70% FIO2, improved from previous days (was on 80% FIO2 or above). Pt ambulates to sink, washes hands, and back to bed; he is able to recover between 4-5mins of time in bed while on 70% FIO2. Of note, HR tends to peak and SPO2 tends to valley about 1 minute after activity and they tend to correlate each time. At end of session, pt able to be weaned down to 60% while at rest. Activity Tolerance: Patient's activity tolerance: poor plus pt making progress but limited due to O2 status Treatment/therapeutic Exercise: Pt donns socks in long sitting, rests, then stands and ambulates tobathroom. He requires rest break after performing esvin care and before ambulation to sink. At end of session he returns to bed where HR and SPO2 recover the fastest. Able to complete tasks with SBS, assistance with line management. Patient/Family Teaching: Exercise, Gait, Mobility and deep breathing Patient demonstrated Good understanding of instructions given. Short Term Goals: Goal Formation?With patient Patient will perform bed mobility:??Independent??(MET 03/15) Patient will transfer sit to/from stand:??Independent (MET 03/15) Patient will transfer bed to/from chair:??Independent (updated 03/15) Patient will ambulate??50??feet with Stand By Assist??and appropriate AD Patient will ascend/descend??10??steps: Stand By Assist??and hand rail assist?? Patient will perform home exercise program independently ?? Residential Goal(s): Patient to be independent/baseline with functional mobility and self care and be able to safely discharge to prior level of care Update Treatment Plan: Continue with current PT plan of care to improve safety and functional mobility, especially focusing on progressing gait and endurance. If patient is discharged from the facility, this note serves as a discharge note if further physical therapy visits did not occur. Following therapy session, patient left in bed, with call light within reach and with RN, Krystal lowery. Amy Anderson, PT 03/22/2020 * Jocelin Griggs RD/DAE - 03/22/2020 12:43 PM CDT Nutrition Re-Assessment Nutrition Recommendations: Continue current diet Comments: Pt seen for f/u. COVID positive, information obtained from EMR. Intakes are adequate, consuming 100% of meals. No nausea, vomiting, diarrhea. Last BM 03/21. No further nutrition interventions warranted at this time. RD will continue to monitor. Assessment: Med/Surg History and Clinical Diagnoses: Fever, diffuse large B-cell lymphoma, headache, fever in other diseases Diet order accuracy Current diet order: Regular Nutrition recommendation: agree with current nutrition order P.O.Intake for the past 48 hrs:% Meal Taken Av % Min: 100 % Max: 100 % Food Allergies: No known food allergies GI Concerns: None Chewing/Swallowing: None Pain affecting intake: No Admission weight: Weight: 265 lb (120.2 kg) (02/25/20 2356) Filed Wts: 03/10/20 0350 03/11/20 0400 03/21/20 0626 03/22/20 0602 Weight: 259 lb 14.8 oz (117.9 kg) 257 lb 15 oz (117 kg) 259 lb 0.7 oz (117.5 kg) 255 lb 1.2 oz (115.7 kg) Wt Comments: Height: 5' 7.01 (170.2 cm) IBW/lb (Calculated) Male: 148.048 , Laboratory values reviewed. Medications noted. Skin/Wound: WDL Estimated Energy Needs: KCAL: [phone] (30-35 kcal/kg IBW) Protein (g): 95-110 (1.4-1.6 g/kg IBW) Fluid (ml): 1 ml/kcal Needs based on: (67.3kg) Recommended Access Route: PO Education needed: None Nutrition Care Process (1) Nutrition Diagnostic Statement: Increased nutrient needs related to:: increased demands with critical illness(febrile) as evidenced by:: estimated protein needs ..(2.0-2.5 g/kg IBW) Nutrition Diagnostic Statement Progress: Nutrition problem continues Nutrition Intervention: Meals and snacks:;Medical Food Supplements: Monitoring: PO intake, nutrition labs, wt, BM's, I's&O's Evaluation: Nutrition Goal: Total intake will meet estimated nutrient needs Nutrition Goal Timeframe: Throughout stay Nutrition Goal Progress: Continue with current goal Jocelin Griggs MA, RD, NIKON Pager: [phone] * Alecia Aldana RN - 03/22/2020 11:32 AM CDT [facility] informed CM they are not in network with patient's [facility] policy. They can do a single case agreement if patient doesn't prefer another LTAC that is in-network. CM sent to [facility] to review insurance and clinical information. Addendum- [facility] is in network with insurance. Discussed with patient about [facility]. Patient is adamant he won't go to [facility] due to losing a family member there in the past. He is agreeable to seeing if [facility] can do a single case agreement. [facility] with [facility] updated and will look into this. 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 INTERVAL HISTORY: Uneventful evening o2 on CPAP titrated down to 50%fio2 Although unable to titrate down settings on HFNC Cough stable, intermittent and non-productive Denies N/V/F/C/D Reports stable bowel and bladder Working with PT ROS: A comprehensive review of systems was negative except for: as noted above MEDICATIONS FOR CURRENT ENCOUNTER: SCHEDULED MEDICATIONS: 0.9% NaCl injection 3 mL, Intracatheter, q8h albuterol HFA (PROVENTIL;VENTOLIN;PROAIR) 108 (90 Base) MCG/ACT inhaler 2 puff, Inhalation, q4h artificial tears ophthalmic ointment, Each Eye, q8h ascorbic acid (VITAMIN C) 3,000 mg in 0.9% NaCl IV IVPB, Intravenous, q6h budesonide-formoterol (SYMBICORT) 80-4.5 MCG/ACT inhaler 2 puff, Inhalation, BID enoxaparin (LOVENOX) injection 120 mg, Subcutaneous, q12h escitalopram (LEXAPRO) tablet 10 mg, Oral, QDAY pantoprazole EC (PROTONIX) tablet 40 mg, Oral, QDAY penicillin V potassium (VEETIDS) solution 250 mg, Oral, q12h rOPINIRole (REQUIP) tablet 0.25 mg, Oral, AT BEDTIME sulfamethoxazole-trimethoprim (BACTRIM DS; SEPTRA DS) 800-160 MG tablet 1 tablet, Oral, MON, WED AND FRI thiamine (VITAMIN B-1) tablet 200 mg, Oral, q12h traMADol (ULTRAM) tablet 50 mg, Oral, q8h valACYclovir (VALTREX) tablet 500 mg, Enteral Tube, BID vitamin D3-cholecalciferol (CHOLECALCIFEROL) 25 MCG (1000 UNITS) tablet 2,000 Units, Oral, QDAY zinc gluconate tablet 50 mg, Oral, QDAY ?? [START ON 03/23/2020] predniSONE (DELTASONE) tablet 50 mg, Oral, QDAY WITH BREAKFAST ?? CONTINUOUS MEDICATIONS: PRN MEDICATIONS: 0.9% NaCl injection 1-10 mL, Intracatheter, PRN acetaminophen (TYLENOL) tablet 325 mg, Oral, q4h PRN magnesium sulfate 2 g in 50 mL bolus, Intravenous, PRN ondansetron (disintegrating) (ZOFRAN ODT) tablet 4 mg, Oral, q8h PRN ondansetron (ZOFRAN) injection 4 mg, Intravenous, q8h PRN prochlorperazine (COMPAZINE) injection 10 mg, Intravenous, q6h PRN prochlorperazine (COMPAZINE) tablet 5 mg, Oral, q8h PRN ?? saline nasal spray (OCEAN; BABY AYR) 0.65 % nasal spray 2 spray, Each Nostril, q2h PRN VITALS: Vitals: 03/22/20 0400 03/22/20 0512 03/22/20 0602 03/22/20 0803 BP: 119/72 139/89 Pulse: 84 83 104 Resp: Temp: 97.6 ??F 98.5 ??F SpO2: 98% 94% 95% Weight: 115.7 kg (255 lb 1.2 oz) Height: Wt Readings from Last 3 Encounters: 03/22/20 115.7 kg (255 lb 1.2 oz) 02/26/20 120.2 kg (265 lb) 11/15/19 123.4 kg (272 lb) Date 03/21/20 07 - 03/22/20 0659 03/22/20699 - 03/23/20 0659 Shift [id number] 4995-7248 24 Hour Total 6494-8062 7779-6668 24 Hour Total INTAKE P.O. 1120 1120 480 480 I.V.(mL/kg/hr) 206(0.1) 105.4(0.1) 311.4(0.1) 102.1 102.1 Shift Total(mL/kg) 1326(11.3) 105.4(0.9) 1431.4(12.4) 582.1(5) 582.1(5) OUTPUT Urine(mL/kg/hr) 850(0.6) 175(0.1) 1025(0.4) 400 400 Shift Total(mL/kg) 850(7.2) 175(1.5) 1025(8.9) 400(3.5) 400(3.5) NET 476 -69.6 406.4 182.1 182.1 Weight (kg) 117.5 115.7 115.7 115.7 115.7 115.7 PHYSICAL EXAM: General appearance - alert, well appearing, in no distress, and acyanotic in no respiratory distress Mental status - alert, oriented to person, place, and time, normal mood, behavior, speech, dress, motor activity, and thought processes, affect appropriate to mood Mouth - mucous membranes moist, pharynx normal without lesions Chest - diminished, minor fine crackles in bilateral bases, no wheezes, symmetric air entry, no tachypnea, retractions or cyanosis Heart - normal rate and regular rhythm, no murmurs noted Abdomen - soft, nontender, nondistended, no masses or organomegaly, bowel sounds normal Neurological - alert, oriented, normal speech, no focal findings or movement disorder noted Musculoskeletal - no joint tenderness, deformity or swelling, no muscular tenderness noted Extremities - peripheral pulses normal, no pedal edema, no clubbing or cyanosis Skin - normal coloration and turgor, no rashes, no suspicious skin lesions noted LABS: Recent Labs Component Name 03/22/20 0046 03/21/20 0213 03/20/20 0844 03/18/20 2357 03/15/20 0027 03/14/20 0023 WBC 14.3* 13.6* 16.3* 16.8* - 17.9* 20.8* RBC 3.42* 3.47* 3.70* 3.42* - 3.09* 3.19* HGB 10.0* 10.0* 10.8* 10.0* - 8.8* 9.1* HCT 30.2* 30.4* 33.0* 30.1* - 26.2* 26.8* MCV 88.3 87.6 89.2 88.0 - 84.8 84.0 MCH 29.2 28.8 29.2 29.2 - 28.5 28.5 MCHC 33.1 32.9 32.7 33.2 - 33.6 34.0 PLTCOUNT 205 192 181 188 - 181 215 RDWSD 69.9* 67.5* 66.4* 62.7* - 54.0* 52.7* RDW 22.3* 22.1* 22.0* 21.2* - 18.3* 18.0* MPV 12.4 - - - - 13.8* 12.9* NRBCABS 0.58* 0.77* 1.22* 1.83* - 0.34* 0.19* NRBCAUTOPCT 4.1* 5.7* 7.5* 10.9* - 1.9* 0.9* NEUTPCT 83.6* 82.7* 83.2* - - 89.7* - LYMPHSPCT 6.8* 7.1* 4.9* - - 3.1* - MONOPCT 5.3 5.2 4.2 - - 3.3 - EOSPCT 0.5 0.8 2.3 - - 0.1 - BASOPCT 0.3 0.2 0.4 - - 0.1 - IMMGRANSPCT 3.5* 4.0* 5.0* - - 3.7* - NEUTABS 12.0* 11.3* 13.6* 15.96* - 16.0* 20.38* LYMPHS 1.0 1.0 0.8 0.17* - 0.6* 0.21* MONO 0.75* 0.71* 0.69* 0.50 - 0.59 0.21 EOS 0.07 0.11 0.37 - - 0.01 - BASO 0.04 0.03 0.06 - - 0.02 - TOTCELLCNT - - - 100 - - 100 - = values in this interval not displayed. Recent Labs Component Name 03/22/20 0046 03/21/203 03/20/20 0844 BUN 15 16 23 CREATININE 0.8 0.8 0.8 NA 140 139 141 POTASSIUM 4.2 4.2 4.4 CL 98 99 100 CO2 32* 30* 31* CALCIUM 8.4 8.6 8.7 PROT 5.4* 5.4* 5.6* ALB 2.4* 2.4* 2.5* TBILI 0.2 0.2 0.3 ALKPHOS 86 91 94 ALT 46 36 37 AST 19 15 17 ANIONGAP 14 14 14 BCR 19 20 29* OSMOLALITY 291 289 295 AGRATIO 0.8* 0.8* 0.8* EGFR >60 >60 >60 Recent Labs Component Name 03/22/20 0046 03/21/203 03/20/20 0844 MAGNESIUM 2.0 1.9 1.9 Recent Labs Component Name 03/22/20 00403/21/203 03/20/20 0844 PHOS 3.9 3.9 3.7 Recent Labs Component Name 03/22/206 03/21/20 0213 03/20/20 0844 CRP 3.0* 3.2* 1.9* LDH Total Date Value Ref Range Status 03/22/2020 390 (H) 125 - 243 Units/L Final 03/20/2020 395 (H) 125 - 243 Units/L Final 03/18/2020 384 (H) 125 - 243 Units/L Final Recent Labs Component Name 03/22/20 0046 03/20/20 0844 03/18/20 0014 FERRITIN 737* 703* 775* Recent Labs Component Name 03/22/20 0046 03/20/20 0844 03/18/20 0014 ESR 50* 51* 22* Recurring Labs: Ig03/13/20 162, IVIG given. Repeat in 2 weeks (~03/27/20) CD4: 02/27/20-68 PATHOLOGY: BMBX (03/03/20): Path - Normocellular marrow with maturing trilineage hematopoiesis. NISHA Flow - NISHA Cyto - 46,XY FISH - negative INFECTIOUS: BCx (03/21/20): NG@24 Covid swab (03/07/20): positive Bronch (03/06/20): COVID +, otherwise negative. Path reactive alveolar parenchyma with mild chronic inflammation RADIOLOGY: CXr (03/20/20): Bilateral interstitial and airspace opacities are mildly improved. No new areas of airspace consolidation observed. There is suggestion of small bilateral pleural effusions with adjacent atelectasis or airspace disease. CXr (03/10/20): Multifocal consolidation in both lungs, concerning for multifocal pneumonia, improvedfrom prior. Interstitial opacities could also represent underlying mild pulmonary edema, improved from prior. Venous Duplex (03/03/20): Negative for DVT CT Chest (03/02/30): Altered distribution of prominent geographic GGO within upper and lower lung zones bilaterally. Re-demonstration of nonocclusive thrombus within left brachiocephalic vein which extends to the superior vena cava. 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 SYSTEMS: Marginal Zone Lymphoma in CR2 pre-transplant Schema: 5A Prep: BEAM, Cell count 10.4 x 10^6 CD34+cells/kg in 5 bags; day [address] A/P -- BMBx completed (03/03) -Transfusion threshold: Hgb > 7; Plt > 10; CMV +, transfusion pre meds: none needed -Engraftment: ANC day +9 (10/29/19); plt engraftment 11/03/19 (day +14) -given overall stability will check CBCw/Diff MWF -check IgG level today (03/23) and replace as indicated OI prophylaxis: Bacterial:??Pen VK PJP:??Bactrim DS MWF Viral: Valtrex 500mg BID COVID -tested positive early January, asymptomatic at that time -Covid from bronch 03/07 and PROVISIONING ANALYST swab 03/07 both positive -received remdesivir 03/08 - 03/12 & convalescent plasma 03/10 -given overall stability will check labs every MWF at this point -CXr appears somewhat improved 03/20 vs 03/10 -following discussion with pulm pt will likely benefit from longer steroid taper than outlined in MATH+ protocol -steroids switched to pred 03/18 then tapered to 60mg 03/20; >>start slow taper over 2-3 weeks on 03/23 >>taper by 10mg every 4 days -continue ATC Hypoxia -marginal improvement over the last 24 hours, titrated CPAP from 70% to 50% -started long acting beta agonist/corticosteroid (symbicort) 03/22 -09/05 COVID, see above -intubated 03/06/20 -03/08/20>>now on CPAP switching to HFNC for meals -Bronch'd 03/06/20>>COVID + otherwise unremarkable -continues to be labile, likely 2-3 weeks before significant improvement and would likely benefit from LTACH while tapering steroids and weaning oxygen -follow BCx sent 03/21 to r/o underlying bacterial infection Folliculitis -keep skin clean and dry, will follow closely Right IJ venous clot 09/27/19 -Lovenox 120 mg Q12H while inpt -previously on Eliquis 5 mg BID Pertinent History: Persistent Fevers: reason for admission, completed 7D course of cem and vanco on 03/08/20 Anxiety/Depression- Lexapro 10 mg daily Restless Leg Syndrome - Requip 0.25 mg QHS Headaches tramadol 50 mg q8h. LP completed 03/01. Results negative for meningitis Discharge Planning: Patients preferred contact information: cell Caregiver: sister, girlfriend Preferred D/C Pharmacy: [facility] Intended lodging: home Referring provider: Cesar Tavares Disposition: Remain on 8S for O2 support, working on placement in LTAC given likely prolonged weaning of oxygen Asim Ramirez APRN, TALENT ACQUISITION OPERATIONS MANAGER-C [facility] Blood Marrow and Transplant Pager: [phone] Associated attestation - ChiTony valencia MD - 03/22/2020 12:12 PM CDT I discussed the case of Jalil Luis with the BMT advanced practice provider. I reviewed my assessment with the advanced practice provider I reviewed the below note. Please see note for full detail.I agree with the findings and plan of care as documented by the advanced practice provider * Keena Hernandez RN - 03/22/2020 8:22 AM CDT Problem: Fall Risk Goal: Fall risk and fall related injury risk are minimized Outcome: Ongoing Problem: Isolation Goal: Prevent Transmission of Infection Outcome: Ongoing Problem: Protective Precautions Goal: Patient will remain free of Nosocomial Infections Outcome: Ongoing Problem: Impaired Gas Exchange Goal: Resp rate/effort will be within specified limits Outcome: Ongoing * Inga Cortez OT - 03/22/2020 8:13 AM CDT [facility] Physical Medicine and Rehabilitation Occupational Therapy Progress Note Patient: Jalil Luis Med Record Number: [id number] Date of : 1970 Age: [age] year old Co-tx w/ PT Patient is COVID-19 positive. PPE donned by therapist throughout session - disposable gown, gloves, N95 mask, eye protection, faceshield, hair net, alva cover and shoe covers. Discharge Recommendation: Patient will benefit from multidisciplinary inpatient therapies (not ableto complete basic ADLs w/out serious desaturations) Precautions: FALLS SAFETY *COVID-19 +* Subjective: You know I missed you guys At start of therapy session, patient found in bed and with no alarm. Pain: Patient has 0 out of 10 pain in body. Nurse notified. Activities of Daily Living Feeding:NT Grooming/Bathing: Stand By Assist/Minimal Assist--does well w/ actual mobility but needs assistancefor line management and endurance. Upper Extremity Dressing: not tested Lower Extremity Dressing: Stand By Assist --does desat when donning socks in bed (see vitals section) Toileting/Transfers: Stand By Assist --same w/ grooming (can complete the task himself, but needs multiple rest breaks). Wiped self 4x then had to stop and recover and then needed 4 mins to recover Mobility: Assist device: none Supine to/from Sit:Stand By Assist Sit to/from Stand: Stand By Assist Bed to/from Chair: not tested Functional Mobility: From bed to toilet to sink back to bed with Stand By Assist/Minimal Assist Splint Issued/Checked: none Splint Check Completed: N/A Balance: Static Sitting: good Dynamic Sitting: good Static Standing: good minus Dynamic Standing: good minus Vitals: (*Assess the 3 levels of oxygen saturations both for room air and 02 unless rest on room air is 88% or less). Rest BP: ?? HR: 116-122 Sp02 ?? Sp02 95-96% at rest HOB raised Room Air ?? L O2 ?? BIPAP on CPAP 50% FIO2 Ex/Gait/Activity Without 02 BP: ?? HR: ?? Sp02 ?? Room Air ?? Ex/Gait/Activity With 02 BP: ? 130/92 HR: 156 131 125 168 153 151 147 151 140 139 141 140 157 160 153 138 135 166 145 140 164 163 142 137 128 132 ?? 125 122 ? 127 126 Sp02 90-91% Donning socks longsitting 94% 1 min post socks 96% 2 min post socks 91% transfer to toilet 90% 1 min post transfer 91% 2 min post transfer 92% 3 min post transfer 93% 4 min post transfer 95% 5 min post transfer 95% 6 min post transfer 93% 8 min post transfer 96% 10 min post transfer 77% immediately following esvin care 85% 1 min post esvin 89% 2 min post esvin 93% 3 min post esvin 94% 4 min post esvin 86% 1 min post second bout esvin care 93% 3 min post second bout esvin 95% 4 min post second bout esvin 70% post amb to sink and back 82% 1 min post amb to sink and back 85% 2 min post amb to sink and back 93% 3 min post amb to sink and back 97% 4 min post amb to sink and back. 97% 6 min post amb to sink and back ?? 96% after change of BIPAP settings 97% 2 mins after change in settings ? 96% after change of BIPAP settings 96% 2 mins after change in settings ? L O2 BIPAP on CPAP 70% FIO2 ? BIPAP on CPAP 65% FIO2 ?? BIPAP on CPAP 60% FIO2 Post Activity BP: ?? HR: 120 Sp02 ?? Sp02 96% L O2 ?? Room Air BIPAP on CPAP 60% FIO2 Observations: Pt reports that he has been on 50% FIO2 all day; he reports he feels overall more tired due to this. Pt able to tolerate activity on 70% FIO2, improved from previous days (was on 80% FIO2 or above). Pt ambulates to sink, washes hands, and back to bed; he is able to recover between 4-5mins of time in bed while on 70% FIO2. Of note, HR tends to peak and SPO2 tends to valley about 1 minute after activity and they tend to correlate each time. At end of session, pt able to be weaned down to 60% while at rest. Activity tolerance: poor--pt is making slow progress (and pt reports he is noticing the improvements), but his progress is very slow. Cognitive/Perceptual: A&Ox4; always cooperative and very pleasant. Highly motivated. Always very engaged in therapy. Treatment/Therapeutic Exercise: Treatment session this date focused on ADL training Functional transfer training Endurance training Bed mobility Energy conservation Safety awareness HEP training Patient/Family Teaching: Exercise, Gait, Mobility and Self care Equipment Issued: none Update Treatment Plan/Goals : Pt continues to benefit from skilled OT to improve independence with activities of daily living, increase strength, endurance, range of motion and decrease pain. Short Term Goals: Patient will perform grooming?Standing at sink and With modified independence Patient will perform lower extremity dressing?With modified independence Patient will perform toileting?With modified independence Residential Goal:Patient to discharge to appropriate next level of inpatient care If patient is discharged from the facility, this note serves as a discharge note if further occupational therapy visits did not occur. Following therapy session, patient left in bed, with call light within reach, with RN, Keena aware and with RN/CP rehab cues written on white board (chair is set up so patient can get to it later today after he has recovered). Inga Cortez OT * Inga Cortez OT - 03/21/2020 2:46 PM CDT [facility] Physical Medicine and Rehabilitation Occupational Therapy Progress Note Patient: Jalil Luis [facility] Record Number: [id number] Date of : 1970 Age: [age] year old Co-Tx w/ PT Patient is COVID-19 positive. PPE donned by therapist throughout session - disposable gown, gloves, N95 mask, eye protection, faceshield, hair net, alva cover and shoe covers. Discharge Recommendation: Patient will benefit from multidisciplinary inpatient therapies (pt con'tto require significant amounts of oxygen to complete very basic skills such as re-postioning and the most basic ADLs) Precautions: FALLS SAFETY *COVID-19 +* Subjective: I am going to do a task at the sink today, right? At start of therapy session, patient found in bed and with no alarm. Pain: Patient has 0 out of 10 pain in body. Nurse notified. Activities of Daily Living Feeding:NT Grooming/Bathing: Minimal assist --washing hands at sink. Decreased endurance and needed time to recover. Upper Extremity Dressing: not tested Lower Extremity Dressing: Not Tested--already had them on today Toileting/Transfers: Minimal assist/Stand By Assist --endurance con't to be extremely poor and patient needs multiple seated rest breaks that can last anywhere for 5-10 minutes per each single task (e.g., wiping himself once) Mobility: Assist device: none Supine to/from Sit:Stand By Assist Sit to/from Stand: Stand By Assist Bed to/from Chair: Minimal assist/Stand By Assist Functional Mobility: From bed to toilet (10 ft away) and toilet to sink and back to bed with Minimal assist Stand By Assist Splint Issued/Checked: none Splint Check Completed: N/A Balance: Static Sitting: good Dynamic Sitting: good Static Standing: good minus Dynamic Standing: good minus Vitals: (*Assess the 3 levels of oxygen saturations both for room air and 02 unless rest on room air is 88% or less). Rest BP: 132/94 HR: 117 Sp02 ?? Sp02 98% Room Air ?? L O2 ?? BIPAP on CPAP mode 70% FIO2 Ex/Gait/Activity Without 02 BP: ?? HR: ?? Sp02 ?? Room Air ?? Ex/Gait/Activity With 02 BP: ?? HR: 152 ?? 150 147 135 135 150 144 132 129 145 158 157 149 142 137 135 138 158 ?? 144 140 130 132 130 127 118 120 118 ?? 125 122 ?? 130 133 120 123 118 Sp02 97% immediately post gait 93% 1 min post gait 93% 2 min post gait 94% 3 min post gait 95% 4 min post gait 95% 5 min post gait 96% 6 min post gait 95% 7 min post gait 96% 8 min post gait 95% 10 min post gait 90% with esvin care 87% 30 sec post esvin 91% 2 min post esvin 92% 3 min post esvin 94% 4 min post esvin 94% 5 min post esvin 94% 7 min post esvin 84% post amb to sink/standing 86% 1 min post sink 88% 2 min post sink 91% 2.5 min post sink 94% 3 min post sink 96% 4 min post sink 97% 5 min post sink 98% 6 min post sink 99% 8 min post sink 98% 10 min post sink ?? 96% in bed resting/talking 96% ?? 94% 94% 95% 96% 96% ?? L O2 BIPAP on CPAP mode 80% FIO2 ? BIPAP on CPAP mode 75% ?? BIPAP on CPAP mode 70% Post Activity BP: ?? HR: 119-130 Sp02 ?? Sp02 97% L O2 ?? RoomAir BIPAP on CPAP mode 70% FIO2 Observations: FIO2 on 70% at rest, bumped up to 80% for activity. Overall, pt noted to have improved tolerance to activity, SPO2 noted to be 93% and above with first ambulation to toilet (highest it has stayed with activity). HR does raise, but does not get up to 160s as compared to previous session; tends to raise when pt talks. Pt sits on toilet for rest break post ambulation up to 10 mins. When pt goes to wipe bottom, he drops to 87%, then quickly rises back into low 90s (very quick recoverytime, does not say below 90 for longer than 30 seconds). Pt requires 7 min rest following esvin care, then is able to stand, walk to sink, and stand to wash hands before ambulating back to bed. He drops to 84% before then quickly recovering into mid 90s with decreasing HR. FIO2 did not need to be bumped up above 80% this session and pt noted to recover (HR, O2) more quickly than in previous sessions. Pt able to be weaned down to 70% FIO2 by end of session, some fluctuations noted in SPO2, HR when talking, but does not drop below 94%. Activity tolerance: poor (but slowly improving)--simple tasks such as changing position, donning socks, wiping/esvin care cause him to become extremely fatigued and his numbers to drop suddenly. He con'ts to drop more once the activity is complete. Today he hit 84% after returning to bed. Unable to tolerate more than 1 activity w/ significant rest breaks in between. Unsustainable for returning home at this time. Cognitive/Perceptual: A&Ox4; pt is cooperative, motivated, and easily participates. Is always eager to try new ideas w/ therapists. Is not impulsive. Treatment/Therapeutic Exercise: Treatment session this date focused on ADL training Functional transfer training Endurance training Bed mobility Energy conservation Safety awareness HEP training Patient/Family Teaching: Exercise, Gait, Mobility and Self care Equipment Issued: none Update Treatment Plan/Goals : Pt continues to benefit from skilled OT to improve independence with activities of daily living, increase strength, endurance, range of motion and decrease pain. Short Term Goals: Patient will perform grooming?Standing at sink and With modified independence Patient will perform lower extremity dressing?With modified independence Patient will perform toileting?With modified independence ?? Residential Goal:Patient to discharge to appropriate next level of inpatient care If patient is discharged from the facility, this note serves as a discharge note if further occupational therapy visits did not occur. Following therapy session, patient left in bed, with call light within reach, with RNTim aware and with RN/CP rehab cues written on white board (bed in chair position) Inga Cortez OT * Amy Anderson, PT - 03/21/2020 2:46 PM CDT [facility] Physical Medicine and Rehabilitation PhysicalTherapy Progress Note Patient: Jalil Luis Med Record Number: [id number] Date of : 1970 Age: [age] year old Pt is COVID POSITIVE.??PT and OT wear goggles, N95 mask, alva covers, face shield, gown, and gloves during session.??Co Treat with OT due to medical complexity and level of skilled assist required, especially due to vitals status.? Discharge Recommendation:??Patient will benefit from multidisciplinary inpatient therapies.??Recommendation changed to LTAC due to current high level of O2 requirement and decreased endurance.?? Subjective: I will probably need to use the bathroom today. Patient currently using no assistive device. Mental Status:??Alert and oriented X4; 100% command follow. Pleasant and cooperative.? At start of therapy session, patient found??in bed and with no alarm. ?? Pain: Patient has??0??out of 10 pain reported. No follow up indicated.? Weight Bearing Status:??BLE WBAT?? Mobility: Rolling: not tested Supine to Sit:Independent Sit to Supine: Independent Sit to Stand:Independent Stand By Assist --cues for assistance with lines Bed to Chair: not tested Gait: Device:none Assistance: Minimal assist Stand By Assist Distance: 10ft, 15ft Deviations: Pt ambulates to toilet no AD. Following rest break on toilet, pt ambulates to sink, walks back to sink, then back to bed. Balance: Static Sitting: good Dynamic sitting: good Static Standing: good minus Dynamic Standing: fair plus Stairs : NT Vitals: (*Assess the 3 levels of oxygen saturations both for room air and 02 unless rest on room air is 88% or less). Rest BP: 132/94 HR: 117 Sp02 Sp02 98% Room Air L O2 BIPAP on CPAP mode 70% FIO2 Ex/Gait/Activity Without 02 BP: HR: Sp02 Room Air Ex/Gait/Activity With 02 BP: HR: 152 150 147 135 135 150 144 132 129 145 158 157 149 142 137 135 138 158 144 140 130 132 130 127 118 120 118 125 122 130 133 120 123 118 Sp02 97% immediately post gait 93% 1 min post gait 93% 2 min post gait 94% 3 min post gait 95% 4 min post gait 95% 5 min post gait 96% 6 min post gait 95% 7 min post gait 96% 8 min post gait 95% 10 min post gait 90% with esvin care 87% 30 sec post esvin 91% 2 min post esvin 92% 3 min post esvin 94% 4 min post esvin 94% 5 min post esvin 94% 7 min post esvin 84% post amb to sink/standing 86% 1 min post sink 88% 2 min post sink 91% 2.5 min post sink 94% 3 min post sink 96% 4 min post sink 97% 5 min post sink 98% 6 min post sink 99% 8 min post sink 98% 10 min post sink 96% in bed resting/talking 96% 94% 94% 95% 96% 96% L O2 BIPAP on CPAP mode 80% FIO2 BIPAP on CPAP mode 75% BIPAP on CPAP mode 70% Post Activity BP: HR: 119-130 Sp02 Sp02 97% L O2 RoomAir BIPAP on CPAP mode 70% FIO2 Observations: FIO2 on 70% at rest, bumped up to 80% for activity. Overall, pt noted to have improved tolerance to activity, SPO2 noted to be 93% and above with first ambulation to toilet (highest it has stayed with activity). HR does raise, but does not get up to 160s as compared to previous session; tends to raise when pt talks. Pt sits on toilet for rest break post ambulation up to 10 mins. When pt goes to wipe bottom, he drops to 87%, then quickly rises back into low 90s (very quick recoverytime, does not say below 90 for longer than 30 seconds). Pt requires 7 min rest following esvin care, then is able to stand, walk to sink, and stand to wash hands before ambulating back to bed. He drops to 84% before then quickly recovering into mid 90s with decreasing HR. FIO2 did not need to be bumped up above 80% this session and pt noted to recover (HR, O2) more quickly than in previous sessions. Pt able to be weaned down to 70% FIO2 by end of session, some fluctuations noted in SPO2, HR when talking, but does not drop below 94%. Activity Tolerance: Patient's activity tolerance: poor plus --improved tolerance to activity this date (quicker recovery post ambulation) Treatment/therapeutic Exercise: Pt sits up on side of bed, ambulates to bathroom, and rests on toilet for O2 to rise, HR to drop. He performs esvin care from toilet, takes rest break, then stands to ambulate to sink and wash hands from standing before returning to bed. He demos improved overall recovery time this session and is able to ambulate to sink (has not been able to perform in prior sessions). Patient/Family Teaching: Exercise, Gait and Mobility Patient demonstrated Good understanding of instructions given. ?? Short Term Goals: Goal Formation?With patient Patient will perform bed mobility:??Independent??(MET 03/15) Patient will transfer sit to/from stand:??Independent (MET 03/15) Patient will transfer bed to/from chair:??Independent (updated 03/15) Patient will ambulate??50??feet with Stand By Assist??and appropriate AD Patient will ascend/descend??10??steps: Stand By Assist??and hand rail assist?? Patient will perform home exercise program independently ?? Family Nurse Practitioner Goal(s): Patient to be independent/baseline with functional mobility and self care and be able to safely discharge to prior level of care Update Treatment Plan: Continue with current PT plan of care to improve safety and functional mobility, especially focusing on progressing gait, standing activity/sitting in chair. If patient is discharged from the facility, this note serves as a discharge note if further physical therapy visits did not occur. Following therapy session, patient left in bed, with call light within reach and with RN, Krystal lowery. Amy Anderson, PT 03/21/2020 * Jorge Luis Ham MD - 03/21/2020 1:40 PM CDT PULMONARY CONSULT NOTE Consult requested by BMT Team Attending Physician:Tony Dumont, * Reason for consultation: hypoxemia HPI: Jalil Luis is a 49 year old male w/ hx of allogeneic SCT for marginal zone lymphoma who presents with prolonged course of fevers and eventually developed shortness of breath and worsening respiratory failure. Patient was intubated for bronchoscopy which came back positive for SARS-CoV-2.He was treated with steroids, remdesivir and convaslescent plasma. He was succcessfully extubated to bipap and has remained on CPAP at 10 cmH20 alternating with HFNC. Interval History: Patient did well overnight. Afebrile. Still desaturation with minimal activity. OBJECTIVE: Vitals: 03/21/20 0626 03/21/20 0803 03/21/20 1159 03/21/20 1230 BP: 156/90 145/92 Pulse: 99 100 Resp: 18 18 Temp: 98 ??F (36.7 ??C) 98 ??F (36.7 ??C) SpO2: 90% 95% 90% Weight: 259 lb 0.7 oz (117.5 kg) Height: PE: Gen: Well developed, A&Ox4, in NAD. HEENT: NC/AT,EOMI. Sclera non-icteric, clear conjunctiva, bipap in place Neck: No LAD, or cartoid bruit. Trachea midline. CV: Tachy but regular, Normal S1 and S2. No murmur. No JVD. Chest: CTAB no wheezing, crackles, or rhonchi appreciated. Non-labored breathing. Abd: Soft, NT/ND, + normal bowel sounds, no HSM. Extr: No edema Neuro: Nonfocal. Skin: Warm and dry, no rashes or other skin lesions present. LABS: Recent Labs Component Name 03/21/2021203/20/20 0844 03/18/20 2357 WBC 13.6* 16.3* 16.8* HGB 10.0* 10.8* 10.0* HCT 30.4* 33.0* 30.1* MCV 87.6 89.2 88.0 Recent Labs Component Name 03/21/2021203/20/20 0844 03/18/20 2357 NA 139 141 144 CL 99 100 100 CO2 30* 31* 28 BUN 16 23 19 CREATININE 0.8 0.8 0.8 Recent Labs Component Name 03/21/20 0213 03/20/20 0844 03/18/20 2357 CALCIUM 8.6 8.7 8.3* PHOS 3.9 3.7 3.4 Lab results smartLinks are not currently available Recent Labs Component Name 03/21/20 0213 03/20/20 0844 03/18/20 2357 PROT 5.4* 5.6* 5.4* ALB 2.4* 2.5* 2.4* ALKPHOS 91 94 99 AST 15 17 15 ALT 36 37 43 TBILI 0.2 0.3 0.2 No results for input(s): HENRIETTA, LIPASE in the last 99081 hours.Lab results smartLinks are not currently available Recent Labs Component Name 03/06/20 1816 02/27/20 2349 02/27/20 0411 PT 14.7 14.2 16.2* INR 1.2 1.1 1.3 Recent Labs Component Name 03/03/20 1247 TROPONINI <0.010 Recent Labs Component Name 03/03/20 1247 TROPONINI <0.010 No results for input(s): PHART, ZSH2MAT, PO2ART, WOI9RVP, BASEEXCESS in the last 63592 hours. Invalid input(s): SO2ABG, FOHBABG CT chest reviewed and notable for bilateral ground glass opacities CXR 03/10: improving bilateral airspace disease ASSESSMENT & PLAN: # Acute hypoxemic respiratory failure: likely secondary to SARS-CoV-2 pneumonia vs chemo induced pneumonitis # H/o marginal zone lymphoma s/p autologous SCT # Left brachiocephalic DVT # LISSA on CPAP at home # Obstructive ventilatory limitation: suspect subclinical asthma prior to transplant RECOMMENDATIONS: - s/p remdesivir and convalescent plasma - continue prednisone but with duration of corticosteroids would prolong his taper for at least 2-3weeks - unlikely PE on therapeutic anticoagulation - would recommend continuing NIPPV and wean FiO2 as able for sats >92% - could transition to albuterol MDI prn and start and ICS/LABA like symbicort or advair BID depending on his insurance - would encourage mobility, PT/OT - agree with PJP prophylaxis - will likely have a protracted course of recovery, may benefit from LTACH for slow taper of steroids and weaning from oxygen DVT ppx with therapeutic anticoagulation Pulmonary will sign off at this time. Please call with any questions. Jorge Luis Ham MD Pulmonary & Critical Care Fellow Division of Pulmonary, Critical Care and Sleep Medicine [facility] Pager: [phone] Associated attestation - Andrew Francis MD - 03/21/2020 2:45 PM CDT I have seen, examined and discussed the patient with the fellow and I agree with the the findings and plan of care/recommendations as documented by the fellow. Date of service: 03/21/2020 Andrew Francis M.D. Nailing Machine Operator [employer] of Internal Medicine Division of Pulmonary, Critical Care and Sleep Medicine [facility] * Keena Hernandez RN - 03/21/2020 11:24 AM CDT Problem: Fall Risk Goal: Fall risk and fall related injury risk are minimized 03/21/2020 112 by Keena Hernandez RN Outcome: Ongoing 03/21/2020 112 by Keena Hernandez RN Outcome: Ongoing Problem: Isolation Goal: Prevent Transmission of Infection 03/21/2020 112 by Keena Hernandez RN Outcome: Ongoing 03/21/2020 1123 by Keena Hernandez RN Outcome: Ongoing Problem: Impaired Gas Exchange Goal: Resp rate/effort will be within specified limits Outcome: Ongoing * Alecia Aldana RN - 03/21/2020 8:29 AM CDT Discussed with BMT patient is most appropriate for LTAC given his high O2 requirements and steroid taper. Discussed with patient and he is agreeable to transfer to LTAC and prefers [facility] [place]. Referral sent to [facility] with [facility] [place] location. CM to follow Sissy Aldana RN, BSN Wrapper Stitcher [phone] * James Asim Giovanna, TRANSCRIBING OPERATOR HEAD-SEWING DEMONSTRATOR - 03/21/2020 7:47 AM CDT Autologous Hematopoietic Stem Cell Daily Note: PATIENT IDENTIFIERS: JALIL LUSI is a 49 year old male who is Day +153 (Day 0 is 10/20/19) of an autologous peripheral blood stem cell transplant with a 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 INTERVAL HISTORY: Denies N/V/F/CV/D Reports stable appetite Reports stable bowel and bladder Continues to predominately use CPAP alternating with HFNC during meals Oxygen consistently in upper 90s to 100% while on CPAP but drops to 90% while on HFNC Cough unchanged, remains dry and nonproductive BNP checked overnight unremarkable ROS: A comprehensive review of systems was negative except for: as noted above MEDICATIONS FOR CURRENT ENCOUNTER: SCHEDULED MEDICATIONS: 0.9% NaCl injection 3 mL, Intracatheter, q8h albuterol HFA (PROVENTIL;VENTOLIN;PROAIR) 108 (90 Base) MCG/ACT inhaler 2 puff, Inhalation, q4h artificial tears ophthalmic ointment, Each Eye, q8h ascorbic acid (VITAMIN C) 3,000 mg in 0.9% NaCl IV IVPB, Intravenous, q6h enoxaparin (LOVENOX) injection 120 mg, Subcutaneous, q12h escitalopram (LEXAPRO) tablet 10 mg, Oral, QDAY pantoprazole EC (PROTONIX) tablet 40 mg, Oral, QDAY penicillin V potassium (VEETIDS) solution 250 mg, Oral, q12h predniSONE (DELTASONE) tablet 60 mg, Oral, QDAY WITH BREAKFAST rOPINIRole (REQUIP) tablet 0.25 mg, Oral, AT BEDTIME sulfamethoxazole-trimethoprim (BACTRIM DS; SEPTRA DS) 800-160 MG tablet 1 tablet, Oral, MON, WED AND FRI thiamine (VITAMIN B-1) tablet 200 mg, Oral, q12h traMADol (ULTRAM) tablet 50 mg, Oral, q8h valACYclovir (VALTREX) tablet 500 mg, Enteral Tube, BID vitamin D3-cholecalciferol (CHOLECALCIFEROL) 25 MCG (1000 UNITS) tablet 2,000 Units, Oral, QDAY ?? zinc gluconate tablet 50 mg, Oral, QDAY ?? CONTINUOUS MEDICATIONS: PRN MEDICATIONS: 0.9% NaCl injection 1-10 mL, Intracatheter, PRN acetaminophen (TYLENOL) tablet 325 mg, Oral, q4h PRN magnesium sulfate 2 g in 50 mL bolus, Intravenous, PRN ondansetron (disintegrating) (ZOFRAN ODT) tablet 4 mg, Oral, q8h PRN ondansetron (ZOFRAN) injection 4 mg, Intravenous, q8h PRN prochlorperazine (COMPAZINE) injection 10 mg, Intravenous, q6h PRN prochlorperazine (COMPAZINE) tablet 5 mg, Oral, q8h PRN ?? saline nasal spray (OCEAN; BABY AYR) 0.65 % nasal spray 2 spray, Each Nostril, q2h PRN VITALS: Vitals: 03/21/20 0047 03/21/20 0344 03/21/20 0449 03/21/20 0626 BP: 123/88 121/79 Pulse: 90 80 83 Resp: 18 18 Temp: 97.6 ??F 97.7 ??F SpO2: 97% 98% 99% Weight: 117.5 kg (259 lb 0.7 oz) Height: Wt Readings from Last 3 Encounters: 03/21/20 117.5 kg (259 lb 0.7 oz) 02/26/20 120.2 kg (265 lb) 11/15/19 123.4 kg (272 lb) Date 03/20/20 07 - 03/21/20 0659 03/21/20 07 - 03/22/20 0659 Shift 6416-0497 7804-5935 24 Hour Total 1722-6900 1604-1605 24 Hour Total INTAKE P.O. 120 120 I.V.(mL/kg/hr) 719.4(0.5) 412.8(0.3) 1132.2(0.4) Shift Total(mL/kg) 719.4(6.1) 532.8(4.5) 1252.2(10.7) OUTPUT Urine(mL/kg/hr) 775(0.6) 1400(1) 2175(0.8) Shift Total(mL/kg) 775(6.6) 1400(11.9) 2175(18.5) NET -55.6 -867.2 -922.8 Weight (kg) 117 117.5 117.5 117.5 117.5 117.5 PHYSICAL EXAM: General appearance - alert, in no distress, and acyanotic in no respiratory distress Mental status - alert, oriented to person, place, and time, normal mood, behavior, speech, dress, motor activity, and thought processes, affect appropriate to mood Mouth - mucous membranes moist, pharynx normal without lesions Chest - fine crackles in bilateral bases, no wheezes, symmetric air entry, no tachypnea, retractions or cyanosis Heart - normal rate and regular rhythm, no murmurs noted Abdomen - soft, nontender, nondistended, no masses or organomegaly, bowel sounds normal Neurological - alert, oriented, normal speech, no focal findings or movement disorder noted Musculoskeletal - no joint tenderness, deformity or swelling, no muscular tenderness noted Extremities - peripheral pulses normal, no pedal edema, no clubbing or cyanosis Skin - normal coloration and turgor, no rashes, no suspicious skin lesions noted LABS: Recent Labs Component Name 03/21/20 0213 03/20/20 0844 03/18/20 2357 03/18/20 0014 03/15/20 0027 03/14/20 0023 03/13/20 0013 WBC 13.6* 16.3* 16.8* 20.4* - 17.9* 20.8* 21.7* RBC 3.47* 3.70* 3.42* 3.41* - 3.09* 3.19* 3.36* HGB 10.0* 10.8* 10.0* 9.9* - 8.8* 9.1* 9.7* HCT 30.4* 33.0* 30.1* 29.4* - 26.2* 26.8* 28.1* MCV 87.6 89.2 88.0 86.2 - 84.8 84.0 83.6 MCH 28.8 29.2 29.2 29.0 - 28.5 28.5 28.9 MCHC 32.9 32.7 33.2 33.7 - 33.6 34.0 34.5 PLTCOUNT 192 181 188 188 - 181 215 221 RDWSD 67.5* 66.4* 62.7* 58.7* - 54.0* 52.7* 51.4* RDW 22.1* 22.0* 21.2* 20.4* - 18.3* 18.0* 17.4* MPV - - - - - 13.8* 12.9* 12.5 NRBCABS 0.77* 1.22* 1.83* 1.94* - 0.34* 0.19* 0.13* NRBCAUTOPCT 5.7* 7.5* 10.9* 9.5* - 1.9* 0.9* 0.6* NEUTPCT 82.7* 83.2* - 85.0* - 89.7* - 92.4* LYMPHSPCT 7.1* 4.9* - 5.1* - 3.1* - 2.7* MONOPCT 5.2 4.2 - 5.5 - 3.3 - 3.1 EOSPCT 0.8 2.3 - 0.0 - 0.1 - 0.0 BASOPCT 0.2 0.4 - 0.3 - 0.1 - 0.1 IMMGRANSPCT 4.0* 5.0* - 4.1* - 3.7* - 1.7* NEUTABS 11.3* 13.6* 15.96* 17.3* - 16.0* 20.38* 20.1* LYMPHS 1.0 0.8 0.17* 1.0 - 0.6* 0.21* 0.6* MONO 0.71* 0.69* 0.50 1.12* - 0.59 0.21 0.67* EOS 0.11 0.37 - 0.01 - 0.01 - 0.00 BASO 0.03 0.06 - 0.06 - 0.02 - 0.02 TOTCELLCNT - - 100 - - - 100 - - = values in this interval not displayed. Recent Labs Component Name 03/21/20 0213 03/20/20 0844 03/18/20 2357 BUN 16 23 19 CREATININE 0.8 0.8 0.8 NA 139 141 144 POTASSIUM 4.2 4.4 4.3 CL 99 100 100 CO2 30* 31* 28 CALCIUM 8.6 8.7 8.3* PROT 5.4* 5.6* 5.4* ALB 2.4* 2.5* 2.4* TBILI 0.2 0.3 0.2 ALKPHOS 91 94 99 ALT 36 37 43 AST 15 17 15 ANIONGAP 14 14 20* BCR 20 29* 24* OSMOLALITY 289 295 302* AGRATIO 0.8* 0.8* 0.8* EGFR >60 >60 >60 Recent Labs Component Name 03/21/20 0213 03/20/20 0844 03/18/20 2357 MAGNESIUM 1.9 1.9 2.0 Recent Labs Component Name 03/21/20 0213 03/20/20 0844 03/18/20 2357 PHOS 3.9 3.7 3.4 Recent Labs Component Name 03/21/20 0213 03/20/20 0844 03/18/20 2357 CRP 3.2* 1.9* 1.2* LDH Total Date Value Ref Range Status 03/20/2020 395 (H) 125 - 243 Units/L Final 03/18/2020 384 (H) 125 - 243 Units/L Final 03/16/2020 407 (H) 125 - 243 Units/L Final Recent Labs Component Name 03/20/20 0844 03/18/20 0014 03/16/20 0045 FERRITIN 703* 775* 688* Recent Labs Component Name 03/20/20 0844 03/18/20 0014 03/16/20 0045 ESR 51* 22* 45* Recurring Labs: Ig03/13/20 162, IVIG given. Repeat in 2 weeks (~03/27/20) CD4: 02/27/20-68 PATHOLOGY: BMBX (03/03/20): Path - Normocellular marrow with maturing trilineage hematopoiesis. NISHA Flow - NISHA Cyto - 46,XY FISH - negative INFECTIOUS: BCx (03/21/20): pending Covid swab (03/07/20): positive Bronch (03/06/20): COVID +, otherwise negative. Path reactive alveolar parenchyma with mild chronic inflammation RADIOLOGY: CXr (03/20/20): prelim, mild improvement from 03/10/20 CXr (03/10/20): Multifocal consolidation in both lungs, concerning for multifocal pneumonia, improvedfrom prior. Interstitial opacities could also represent underlying mild pulmonary edema, improved from prior. Venous Duplex (03/03/20): Negative for DVT CT Chest (03/02/30): Altered distribution of prominent geographic GGO within upper and lower lung zones bilaterally. Re-demonstration of nonocclusive thrombus within left brachiocephalic vein which extends to the superior vena cava. ECHO (03/02/20): ~LVEF 68% ASSESSMENT/PLAN: JALIL LUIS is a 49 year old male, who is Day +153 (Day 0 is 10/20/19) of an autologous peripheral blood stem cell transplant with a 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 SYSTEMS: Marginal Zone Lymphoma in CR2 pre-transplant Schema: 5A Prep: BEAM, Cell count 10.4 x 10^6 CD34+cells/kg in 5 bags; day [address] A/P -- BMBx completed (03/03) -Transfusion threshold: Hgb > 7; Plt > 10; CMV +, transfusion pre meds: none needed -Engraftment: ANC day +9 (10/29/19); plt engraftment 11/03/19 (day +14) OI prophylaxis: Bacterial:??Pen VK PJP:??Bactrim DS MWF Viral: Valtrex 500mg BID COVID -tested positive early January, asymptomatic at that time -Covid from bronch 03/07 and PROVISIONING ANALYST swab 03/07 both positive -received remdesivir 03/08 - 03/12 & convalescent plasma 03/10 -trending inflammatory markers Q48, Last done 03/21, appear overall stable -BNP today (03/21) WNL -CXr appears somewhat improved 03/20 vs 03/10 -following discussion with pulm pt will likely benefit from longer steroid taper than outlined in [facility] protocol -steroids switched to pred 03/18 then tapered to 60mg 03/20; >>start slow taper over 2-3 weeks on 03/23 >>taper by 10mg every 4 days -continue ATC Hypoxia -2/2 COVID, see above -intubated 03/06/20 -03/08/20>>now on CPAP switching to HFNC for meals -Bronch'd 03/06/20>>COVID + otherwise unremarkable -continues to be labile, likely 2-3 weeks before significant improvement and would likely benefit from LTACH while tapering steroids and weaning oxygen -follow BCx sent 03/21 to r/o underlying bacterial infection Folliculitis -keep skin clean and dry, will follow closely Right IJ venous clot 09/27/19 -Lovenox 120 mg Q12H while inpt -previously on Eliquis 5 mg BID Pertinent History: Persistent Fevers: reason for admission, completed 7D course of cem and vanco on 03/08/20 Anxiety/Depression- Lexapro 10 mg daily Restless Leg Syndrome - Requip 0.25 mg QHS Headaches tramadol 50 mg q8h. LP completed 03/01. Results negative for meningitis Discharge Planning: Patients preferred contact information: cell Caregiver: sister, girlfriend Preferred D/C Pharmacy: [facility] Intended lodging: home Referring provider: Cesar Tavares Disposition: Remain on 8S for O2 support Asim Ramirez APRN, TALENT ACQUISITION OPERATIONS MANAGER-C [facility] Pager: [phone] Associated attestation - Tony Dumont MD - 03/21/2020 8:00 PM CDT I independently interviewed and examined Jalil Luis with the BMT advanced practice provider. I reviewed my findings and assessment with the advanced practice provider and the patient. I reviewed the below note. Please see note for full detail.I agree with the findings and plan of care as documented by the advanced practice provider * Tim Hodges RN - 03/20/2020 4:20 PM CDT Problem: Pain/Discomfort Goal: Patient exhibits reduced pain/discomfort as evidenced by pain scores Outcome: Ongoing Goal: Patient uses pharmacological and non-pharmacological pain management strategies. Outcome: Ongoing Goal: Patient verbalizes acceptable level of pain relief and ability to engage in desired activity. Outcome: Ongoing Problem: Fall Risk Goal: Fall risk and fall related injury risk are minimized Outcome: Ongoing * Jorge Luis Ham MD - 03/20/2020 3:54 PM CDT PULMONARY CONSULT NOTE Consult requested by BMT Team Attending Physician:Tony Dumont, * Reason for consultation: hypoxemia HPI: Jalil Luis is a 49 year old male w/ hx of allogeneic SCT for marginal zone lymphoma who presents with prolonged course of fevers and eventually developed shortness of breath and worsening respiratory failure. Patient was intubated for bronchoscopy which came back positive for SARS-CoV-2.He was treated with steroids, remdesivir and convaslescent plasma. He was succcessfully extubated to bipap and has remained on CPAP at 10 cmH20 alternating with HFNC. Interval History: Patient reports feeling that his breathing is actually better over the past few days. He is tapering steroids. Still with high O2 requirements but does better with CPAP and PEEP. OBJECTIVE: Vitals: 03/20/20 0955 03/20/20 1238 03/20/20 1255 03/20/20 1426 BP: 120/79 Pulse: 95 Resp: 20 Temp: 97.7 ??F (36.5 ??C) SpO2: 92% 99% 93% 100% Weight: Height: PE: Gen: Well developed, A&Ox4, in NAD. HEENT: NC/AT,EOMI. Sclera non-icteric, clear conjunctiva, bipap in place Neck: No LAD, or cartoid bruit. Trachea midline. CV: Tachy but regular, Normal S1 and S2. No murmur. No JVD. Chest: CTAB no wheezing, crackles, or rhonchi appreciated. Non-labored breathing. Abd: Soft, NT/ND, + normal bowel sounds, no HSM. Extr: No edema, 2+ distal peripheral pulses, Normal muscle strength and ROM. Neuro: CN II-XII grossly intact b/l, no focal neurologic deficits noted. Skin: Warm and dry, no rashes or other skin lesions present. LABS: Recent Labs Component Name 03/20/20 0844 03/18/20 2357 03/18/20 0014 WBC 16.3* 16.8* 20.4* HGB 10.8* 10.0* 9.9* HCT 33.0* 30.1* 29.4* MCV 89.2 88.0 86.2 Recent Labs Component Name 03/20/20 0844 03/18/20 2357 03/18/20 0014 NA 141 144 140 CL 100 100 100 CO2 31* 28 28 BUN 23 19 21 CREATININE 0.8 0.8 0.8 Recent Labs Component Name 03/20/20 0844 03/18/20 2357 03/18/20 0014 CALCIUM 8.7 8.3* 8.1* PHOS 3.7 3.4 3.3 Lab results smartLinks are not currently available Recent Labs Component Name 03/20/20 0844 03/18/20 2357 03/18/20 0014 PROT 5.6* 5.4* 5.4* ALB 2.5* 2.4* 2.2* ALKPHOS 94 99 105 AST 17 15 19 ALT 37 43 44 TBILI 0.3 0.2 0.2 No results for input(s): HENRIETTA, LIPASE in the last 99278 hours.Lab results smartLinks are not currently available Recent Labs Component Name 03/06/20 1816 02/27/20 2349 02/27/20 0411 PT 14.7 14.2 16.2* INR 1.2 1.1 1.3 Recent Labs Component Name 03/03/20 1247 TROPONINI <0.010 Recent Labs Component Name 03/03/20 1247 TROPONINI <0.010 No results for input(s): PHART, LIG0ONB, PO2ART, SBS9EON, BASEEXCESS in the last 87852 hours. Invalid input(s): SO2ABG, FOHBABG CT chest reviewed and notable for bilateral ground glass opacities CXR 03/10: improving bilateral airspace disease ASSESSMENT & PLAN: # Acute hypoxemic respiratory failure: likely secondary to SARS-CoV-2 pneumonia vs chemo induced pneumonitis # H/o marginal zone lymphoma s/p autologous SCT # Left brachiocephalic DVT # LISSA on CPAP at home RECOMMENDATIONS: - s/p remdesivir and convalescent plasma - continue prednisone but with duration of corticosteroids would prolong his taper for at least 2-3weeks, would keep at 60mg daily for several days - would also check CXR and BNP, given cardiovascular predilection for SARS-CoV-2 cannot exclude newnon-ischemic cardiomyopathy - unlikely PE on therapeutic anticoagulation - would recommend continuing NIPPV and wean FiO2 as able for sats >92% - would encourage mobility, PT/OT - agree with PJP prophylaxis - will likely have a protracted course of recovery, may benefit from LTACH for slow taper of steroids and weaning from oxygen DVT ppx with therapeutic anticoagulation Jorge Luis Ham MD Pulmonary & Critical Care Fellow Division of Pulmonary, Critical Care and Sleep Medicine [facility] Pager: [phone] Associated attestation - Andrew Francis MD - 03/20/2020 7:59 PM CDT I have seen, examined and discussed the patient with the fellow and I agree with the the findings and plan of care/recommendations as documented by the fellow. Date of service: 03/20/2020 Andrew Francis M.D. Nailing Machine Operator [employer] of Internal Medicine Division of Pulmonary, Critical Care and Sleep Medicine [facility] * Inga Cortez, OT - 03/20/2020 2:54 PM CDT [facility] Physical Medicine and Rehabilitation Occupational Therapy Progress Note Patient: Jalil Luis Med Record Number: [id number] Date of : 1970 Age: [age] year old Co-Tx w/ PT Patient is COVID-19 positive. PPE donned by therapist throughout session - disposable gown, gloves, N95 mask, eye protection, faceshield, hair net, alva cover and shoe covers. Discharge Recommendation: Patient will benefit from multidisciplinary inpatient therapies (pt con'tto require significant amounts of oxygen to complete very basic skills such as re-postioning and the most basic ADLs) Precautions: FALLS SAFETY *COVID-19 +* Subjective: I missed you guys this weekend (pt was eager to participate) At start of therapy session, patient found in bed and with no alarm. Pain: Patient has 0 out of 10 pain in body. Nurse notified. Activities of Daily Living Feeding:NT Grooming/Bathing: Minimal assist --decreased endurance and he is unable to perform the task in one burst w/out a seated rest break (for several minutes). Please see vitals section for more info. Upper Extremity Dressing: not tested Lower Extremity Dressing: Stand By Assist --long sit in bed. Able to reach feet and don socks. 02 con't to drop and he needed several mins of laying in bed w/ HOB raised to recover. Toileting/Transfers: Minimal assist/Stand By Assist --endurance con't to be extremely poor and patient needs multiple seated rest breaks that can last anywhere for 5-10 minutes per each single task (e.g., wiping himself once) Mobility: Assist device: none Supine to/from Sit:Stand By Assist Sit to/from Stand: Stand By Assist Bed to/from Chair: Minimal assist Stand By Assist Functional Mobility: From bed to toilet (10 ft away) with Minimal assist/Stand By Assist Splint Issued/Checked: none Splint Check Completed: N/A Balance: Static Sitting: good Dynamic Sitting: good Static Standing: good minus Dynamic Standing: good minus Vitals: Rest BP: HR: 109 141 SpO2 SpO2 94-95%--seated in bed and talking Room Air L 02 65% Fi02 Bipap on CPAP Ex/Gait/ Activity Without 02 BP: HR: SpO2 Room Air Ex/Gait/ Activity With 02 BP: HR: 150 130 163 146 144 135 131 132 134 156 160 146 133 134 155 150 145 136 128 138 168 161 127 126 114 120 118 SpO2 90%--put socks on in bed 94% 90%--going to bathroom (10 ft) 92%--1.5 mins on toilet 93%--4 mins on toilet 94%--5 mins 95%--6 mins 95%--8 mins 94%--10 mins 90%--after performing esvin care (5 wipes) RR was 40 86%--after 1 min sitting on toilet after esvin care 90%--3 mins after esvin care 95%--4 mins after esvin care 95%--5 mins after esvin care 88%--immediately after amb 10 ft back to bed 83%--1 min back in bed 85%--1.5 min back in bed 88%--2 mins back in bed 90%--2.5 mins back in bed 97%--3.5 mins back in bed 91%--4 mins in bed and performing esvin care (front) w/ HOB rasied 88%--1 min after activity 94%--2 min 95%--Fi02 decreased 97%--2 min after dropping Fi02 95%--Fi02 dropped 70% 94%--3 mins on 70% L 02 80% Fi02 (increased for activity) 75% Fi02 decreased 70% Fi02 decreased Post Activity BP: 135/89 HR: 115 SpO2 SpO2 94-95% L 02 Room Air 70% Fi02 Observations: Con't to desat quickly and easily w/ very little activity. Overall, compared to last week, he is recovering better, but this is still not sustainable for ambulation and ADL participation Activity tolerance: poor--simple tasks such as changing position, donning socks, wiping cause him to become extremely fatigued and his numbers to drop suddenly. He con't tp drop more once the activity is complete (usually into the 80s). Unable to tolerate more than 1 activity w/ significant rest breaks in between. Unsustainable for returning home at this time. Cognitive/Perceptual: A&Ox4; pt is cooperative, motivated, and easily participates. Is always eager to try new ideas w/ therapists. Is not impulsive. Treatment/Therapeutic Exercise: Treatment session this date focused on ADL training Functional transfer training Endurance training Bed mobility Energy conservation Safety awareness HEP training Patient/Family Teaching: Exercise, Gait, Mobility and Self care Equipment Issued: none Update Treatment Plan/Goals : Pt continues to benefit from skilled OT to improve independence with activities of daily living, increase strength, endurance, range of motion and decrease pain. Short Term Goals: Patient will perform grooming?Standing at sink and With modified independence Patient will perform lower extremity dressing?With modified independence Patient will perform toileting?With modified independence ?? Residential Goal:Patient to discharge to appropriate next level of inpatient care If patient is discharged from the facility, this note serves as a discharge note if further occupational therapy visits did not occur. Following therapy session, patient left in bed, with call light within reach, with RNTim aware and with RN/CP rehab cues written on white board (bed in chair position) Inga Cortez OT * Amy Anderson, PT - 03/20/2020 2:48 PM CDT [facility] Physical Medicine and Rehabilitation PhysicalTherapy Progress Note ? Patient: Jalil Luis [facility] Record Number: [id number] Date of : 1970 Age: [age] year old ? Pt is COVID POSITIVE.??PT and OT wear goggles, N95 mask, alva covers, face shield, gown, and gloves during session.??Co Treat with OT due to medical complexity and level of skilled assist required, especially due to vitals status.? Discharge Recommendation:??Patient will benefit from multidisciplinary inpatient therapies.??Recommendation changed to LTAC due to current high level of O2 requirement and decreased endurance.? Subjective: I am feeling pretty good, I have to go to the bathroom. ?? Patient currently using no assistive device. Mental Status:??Alert and oriented X4; 100% command follow. Pleasant and cooperative.? At start of therapy session, patient found??in bed and with no alarm. ?? Pain: Patient has??0??out of 10 pain reported. No follow up indicated.? Weight Bearing Status:??BLE WBAT? Mobility: ?? Rolling: not tested ?? Supine to Sit:Independent ?? Sit to Supine: Independent ?? Sit to Stand:Independent/SBS (one cue for safety due to lines) ?? Bed to Chair: not tested ?? Gait: Device:none ?? Assistance: Stand By Assist ?? Distance: 10ft x2 Deviations: Pt requires assistance managing lines to and from bathroom. Unable to ambulate further due to poor endurance, O2 status. He holds doorframe at times for balance; therapist gives cues for safety and PLB. ?? Balance: ?? Static Sitting: good ?? Dynamic sitting: good ?? Static Standing: good minus ?? Dynamic Standing: fair plus ?? Stairs : NT Vitals: Rest BP: ?? HR: 109 141 SpO2 ?? SpO2 94-95%--seated in bed and talking Room Air ?? L 02 ?? 65% Fi02 Bipap on CPAP Ex/Gait/ Activity Without 02 BP: ?? HR: ?? SpO2 ?? Room Air ?? Ex/Gait/ Activity With 02 BP: ?? HR: 150 130 163 ?? 146 144 135 131 132 134 156 ?? 160 ?? 146 133 134 155 ?? 150 145 136 128 138 168 ? 161 127 126 114 ?? 120 118 SpO2 90%--put socks on in bed 94% 90%--going to bathroom (10 ft) 92%--1.5 mins on toilet 93%--4 mins on toilet 94%--5 mins 95%--6 mins 95%--8 mins 94%--10 mins 90%--after performing esvin care (5 wipes) RR was 40 86%--after 1 min sitting on toilet after esvin care 90%--3 mins after esvin care 95%--4 mins after esvin care 95%--5 mins after esvin care 88%--immediately after amb 10 ft back to bed 83%--1 min back in bed 85%--1.5 min back in bed 88%--2 mins back in bed 90%--2.5 mins back in bed 97%--3.5 mins back in bed 91%--4 mins in bed and performing esvin care (front) w/ HOB rasied 88%--1 min after activity 94%--2 min 95%--Fi02 decreased 97%--2 min after dropping Fi02 95%--Fi02 dropped 70% 94%--3 mins on 70% ?? L 02 80% Fi02 (increased for activity) ? 75% Fi02 decreased ?? 70% Fi02 decreased Post Activity BP: 135/89 HR: 115 SpO2 ?? SpO2 94-95% L 02 ?? Room Air 70% Fi02 Observations: Con't to desat quickly and easily w/ very little activity. Overall, compared to last week, he is recovering better, but this is still not sustainable for ambulation and ADL participation ? Activity Tolerance: Patient's activity tolerance: poor --Pt limited due to vitals status. His SPO2 drops and HR rises with activity and requires prolonged rest break to recover safety. ? Treatment/therapeutic Exercise: Pt long-sits in bed to garrett socks, then sits up and ambulates to bathroom. He has BM and requires prolonged rest break (10-15 mins) prior to being able to perform pericare due to vitals status. He demonstrates improved O2 recovery (quicker, at less FIO2 as compared to previous sessions) but HR still increasing to 160s. Pt weight shifts on toilet and performs esvin care, at least 5 mins rest break needed following that task before ambulating back to bed. Patient/Family Teaching: Exercise, Gait and Mobility Patient demonstrated Good understanding of instructions given. ? Short Term Goals: Goal Formation?With patient Patient will perform bed mobility:??Independent??(MET 03/15) Patient will transfer sit to/from stand:??Independent (MET 03/15) Patient will transfer bed to/from chair:??Independent (updated 03/15) Patient will ambulate??50??feet with Stand By Assist??and appropriate AD Patient will ascend/descend??10??steps: Stand By Assist??and hand rail assist?? Patient will perform home exercise program independently ?? Residential Goal(s): Patient to be independent/baseline with functional mobility and self care and be able to safely discharge to prior level of care ?? Update Treatment Plan: Continue with current PT plan of care to improve safety and functional mobility, especially focusing on attempting to increase endurance, gait, standing tolerance as able. ? If patient is discharged from the facility, this note serves as a discharge note if further physical therapy visits did not occur. ?? Following therapy session, patient left in bed, with call light within reach and with RN, Tim lowery. ?? Amy Anderson, PT 03/20/2020 * Keli Case, JOSE DAVID-SEWING DEMONSTRATOR - 03/20/2020 7:35 AM CDT Autologous Hematopoietic Stem Cell Daily Note: PATIENT IDENTIFIERS: JALIL LUIS is a 49 year old male who is Day +152 (Day 0 is 10/20/19) of an autologous peripheral blood stem cell transplant with a 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 INTERVAL HISTORY: Awake and in bed this AM, On CPAP overnight. Mostly wears CPAP but switch to HFNC when eating. Reported still getting weaned with activity. Tried to decrease O2 yesterday but he O2 level dropped and was increased again. C/o of dry cough, possible 2/2 to positive pressure room. Denies chest pain or dizziness Denies F/C/N/V/D ROS: A comprehensive review of systems was negative except for: as noted above MEDICATIONS FOR CURRENT ENCOUNTER: SCHEDULED MEDICATIONS: Followed by Followed by Followed by Followed by 0.9% NaCl injection 3 mL, Intracatheter, q8h albuterol HFA (PROVENTIL;VENTOLIN;PROAIR) 108 (90 Base) MCG/ACT inhaler 2 puff, Inhalation, q4h artificial tears ophthalmic ointment, Each Eye, q8h ascorbic acid (VITAMIN C) 3,000 mg in 0.9% NaCl IV IVPB, Intravenous, q6h enoxaparin (LOVENOX) injection 120 mg, Subcutaneous, q12h escitalopram (LEXAPRO) tablet 10 mg, Oral, QDAY pantoprazole EC (PROTONIX) tablet 40 mg, Oral, QDAY penicillin V potassium (VEETIDS) solution 250 mg, Oral, q12h rOPINIRole (REQUIP) tablet 0.25 mg, Oral, AT BEDTIME sulfamethoxazole-trimethoprim (BACTRIM DS; SEPTRA DS) 800-160 MG tablet 1 tablet, Oral, MON, WED AND FRI thiamine (VITAMIN B-1) tablet 200 mg, Oral, q12h traMADol (ULTRAM) tablet 50 mg, Oral, q8h valACYclovir (VALTREX) tablet 500 mg, Enteral Tube, BID vitamin D3-cholecalciferol (CHOLECALCIFEROL) 25 MCG (1000 UNITS) tablet 2,000 Units, Oral, QDAY zinc gluconate tablet 50 mg, Oral, QDAY [COMPLETED] predniSONE (DELTASONE) tablet 60 mg, Oral, QDAY WITH BREAKFAST [START ON 03/21/2020] predniSONE (DELTASONE) tablet 40 mg, Oral, QDAY WITH BREAKFAST [START ON 03/22/2020] predniSONE (DELTASONE) tablet 30 mg, Oral, QDAY WITH BREAKFAST [START ON 03/23/2020] predniSONE (DELTASONE) tablet 20 mg, Oral, QDAY WITH BREAKFAST ?? [START ON 03/24/2020] predniSONE (DELTASONE) tablet 10 mg, Oral, QDAY WITH BREAKFAST ?? CONTINUOUS MEDICATIONS: PRN MEDICATIONS: 0.9% NaCl injection 1-10 mL, Intracatheter, PRN acetaminophen (TYLENOL) tablet 325 mg, Oral, q4h PRN magnesium sulfate 2 g in 50 mL bolus, Intravenous, PRN ondansetron (disintegrating) (ZOFRAN ODT) tablet 4 mg, Oral, q8h PRN ondansetron (ZOFRAN) injection 4 mg, Intravenous, q8h PRN prochlorperazine (COMPAZINE) injection 10 mg, Intravenous, q6h PRN prochlorperazine (COMPAZINE) tablet 5 mg, Oral, q8h PRN ?? saline nasal spray (OCEAN; BABY AYR) 0.65 % nasal spray 2 spray, Each Nostril, q2h PRN VITALS: Vitals: 03/20/20 0832 03/20/20 0955 03/20/20 1238 03/20/20 1255 BP: 124/77 120/79 Pulse: 85 95 Resp: 20 20 Temp: 97.8 ??F 97.7 ??F SpO2: 96% 92% 99% 93% Weight: Height: Wt Readings from Last 3 Encounters: 03/11/20 117 kg (257 lb 15 oz) 02/26/20 120.2 kg (265 lb) 11/15/19 123.4 kg (272 lb) Date 03/19/20 07 - 03/20/20 0659 03/20/20 07 - 03/21/20 0659 Shift [id number] 1968-7515 24 Hour Total 4723-7815 5579-0836 24 Hour Total INTAKE P.O. 360 360 I.V.(mL/kg/hr) 719.4 719.4 Shift Total(mL/kg) 360(3.1) 360(3.1) 719.4(6.1) 719.4(6.1) OUTPUT Urine(mL/kg/hr) 900(0.6) 2500(1.8) 3400(1.2) 550 550 Shift Total(mL/kg) 900(7.7) 2500(21.4) 3400(29.1) 550(4.7) 550(4.7) NET -540 -2500 -3040 169.4 169.4 Weight (kg) 117 117 117 117 117 117 PHYSICAL EXAM: General appearance - alert, well appearing, and in no distress Mental status - alert, oriented to person, place, and time Chest - diminished but clear to auscultation, no wheezes, rales or rhonchi, symmetric air entry Heart - normal rate, regular rhythm, normal S1, S2, no murmurs, rubs, clicks or gallops Abdomen - soft, nontender, nondistended, no masses or organomegaly Musculoskeletal - no joint tenderness, deformity or swelling Extremities - peripheral pulses normal, no pedal edema, no clubbing or cyanosis Skin - normal coloration and turgor, no rashes, no suspicious skin lesions noted PIV - dressing intact, no tenderness or redness noted LABS: Recent Labs Component Name 03/20/20 0844 03/18/20 2357 03/18/20 0014 03/16/20 2359 03/15/20 0027 03/14/20 0023 03/13/20 0013 WBC 16.3* 16.8* 20.4* 18.4* - 17.9* 20.8* 21.7* RBC 3.70* 3.42* 3.41* 3.54* - 3.09* 3.19* 3.36* HGB 10.8* 10.0* 9.9* 10.0* - 8.8* 9.1* 9.7* HCT 33.0* 30.1* 29.4* 30.1* - 26.2* 26.8* 28.1* MCV 89.2 88.0 86.2 85.0 - 84.8 84.0 83.6 MCH 29.2 29.2 29.0 28.2 - 28.5 28.5 28.9 MCHC 32.7 33.2 33.7 33.2 - 33.6 34.0 34.5 PLTCOUNT 181 188 188 193 - 181 215 221 RDWSD 66.4* 62.7* 58.7* 57.3* - 54.0* 52.7* 51.4* RDW 22.0* 21.2* 20.4* 19.6* - 18.3* 18.0* 17.4* MPV - - - - - 13.8* 12.9* 12.5 NRBCABS 1.22* 1.83* 1.94* 1.07* - 0.34* 0.19* 0.13* NRBCAUTOPCT 7.5* 10.9* 9.5* 5.8* - 1.9* 0.9* 0.6* NEUTPCT 83.2* - 85.0* 86.5* - 89.7* - 92.4* LYMPHSPCT 4.9* - 5.1* 4.9* - 3.1* - 2.7* MONOPCT 4.2 - 5.5 4.2 - 3.3 - 3.1 EOSPCT 2.3 - 0.0 0.0 - 0.1 - 0.0 BASOPCT 0.4 - 0.3 0.2 - 0.1 - 0.1 IMMGRANSPCT 5.0* - 4.1* 4.2* - 3.7* - 1.7* NEUTABS 13.6* 15.96* 17.3* 15.9* - 16.0* 20.38* 20.1* LYMPHS 0.8 0.17* 1.0 0.9 - 0.6* 0.21* 0.6* MONO 0.69* 0.50 1.12* 0.77* - 0.59 0.21 0.67* EOS 0.37 - 0.01 0.00 - 0.01 - 0.00 BASO 0.06 - 0.06 0.03 - 0.02 - 0.02 TOTCELLCNT - 100 - - - - 100 - - = values in this interval not displayed. Recent Labs Component Name 03/20/20 0844 03/18/20 2357 03/18/20 0014 BUN 23 19 21 CREATININE 0.8 0.8 0.8 NA 141 144 140 POTASSIUM 4.4 4.3 4.8* CL 100 100 100 CO2 31* 28 28 CALCIUM 8.7 8.3* 8.1* PROT 5.6* 5.4* 5.4* ALB 2.5* 2.4* 2.2* TBILI 0.3 0.2 0.2 ALKPHOS 94 99 105 ALT 37 43 44 AST 17 15 19 ANIONGAP 14 20* 17 BCR 29* 24* 26* OSMOLALITY 295 302* 294 AGRATIO 0.8* 0.8* 0.7* EGFR >60 >60 >60 Recent Labs Component Name 03/18/20 2357 03/18/20 0014 03/16/20 2359 MAGNESIUM 2.0 2.0 2.0 Recent Labs Component Name 03/18/20 2357 03/18/20 0014 03/16/20 2359 PHOS 3.4 3.3 3.9 Recent Labs Component Name 03/18/20 2357 03/18/20 0014 03/16/20 2359 CRP 1.2* 0.7* 1.1* LDH Total Date Value Ref Range Status 03/20/2020 395 (H) 125 - 243 Units/L Final 03/18/2020 384 (H) 125 - 243 Units/L Final 03/16/2020 407 (H) 125 - 243 Units/L Final Recent Labs Component Name 03/18/20 0014 03/16/20 0045 03/14/20 0023 FERRITIN 775* 688* 782* Recent Labs Component Name 03/18/20 0014 03/16/20 0045 03/14/20 0023 ESR 22* 45* 60* Recurring Labs: Ig03/13/20 162, IVIG given. Repeat in 2 weeks (~03/27/20) CD4: 02/27/20-68 Pathology: BMBX (03/03/20): Path- Normocellular marrow with maturing trilineage hematopoiesis. No morphologic evidence of residual/recurrent non-Hodgkin lymphoma. Flow-NISHA Cyto- 46,XY FISH- negative Infectious Workup Covid swap (03/07/20): positive Bronch (03/06/20): COVID +, otherwise negative. Path reactive alveolar parenchyma with mild chronic inflammation COVID (03/04/20):negative COVID (03/03/20): negative PJP PCR: negative Beta D Glucan: negative Blastomyces: ND Histoplasma blood: negative Histoplasma urine: negative Asperigillus: negative Toxoplasma PCR: negative Bartonella IgG: negative Bartonella IgM: negative Cryptococcus: Negative Urine Legionella: Negative Last BC x2 (03/09): NGTD UA with culture (02/25/20): NGTD RVP (02/25/20): ND Covid swab (02/25/20): negative Covid IgG (02/25/20): Negative RADIOLOGY: CXR (03/20/20): ordered PCX (03/05/20): Increase in diffuse patchy airspace opacities in bilateral lungs concerning for multifocal pneumonia. Small left pleural effusion is suggested. There is no pneumothorax. The cardiomediastinal silhouette is Normal Venous Duplex (03/03/20): Negative for DVT CT Chest (03/02/30): 1. Altered distribution of prominent geographic groundglass opacities within the upper and lower lung zones bilaterally. This suggests ongoing inflammatory or infectious process, rather than discrete areas of progressive fibrosis. Areas of groundglass can progress to fibrosis, therefore continued follow-up is advised.2. Re-demonstration of nonocclusive thrombus within the left brachiocephalic vein which extends to the superior vena cava ECHO (03/02/20): Limited echo to assess left ventricular function. There is concentric remodeling of the left ventricle. The left ventricle is normal size. Left ventricular segmental wall motion is normal. Left ventricular systolic function is normal with an ejection fraction by Biplane Method of Discs of 68 %. ASSESSMENT/PLAN: JALIL LUIS is a 49 year old male, who is Day +152 (Day 0 is 10/20/19) of an autologous peripheral blood stem cell transplant with a 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 SYSTEMS: Marginal Zone Lymphoma in CR2 pre-transplant Schema: 5A Prep: BEAM, Cell count 10.4 x 10^6 CD34+cells/kg in 5 bags; day [address] A/P -- BMBx completed (03/03) -Transfusion threshold: Hgb > 7; Plt > 10; CMV +, transfusion pre meds: none needed -Engraftment: ANC day +9 (10/29/19); plt engraftment 11/03/19 (day +14) OI prophylaxis: Bacterial:??Pen VK PJP:??Bactrim DS MWF Viral: Valtrex 500mg BID Covid -tested positive early January, asymptomatic at that time -Inflammatory markers Q 48hrs, Last done 03/18 - trending down -Covid from bronch 03/07 and PROVISIONING ANALYST swab 03/07/ came back positive -remdesivir 03/08 - 03/12 - convalescent plasma 03/10/20 - Starting MATH + protocol 03/12 - Solumedrol 80 mg once then 20 mg q6hr and vitamins. -Switched steroids to pred starting 03/18 tapering by 20mg daily until 03/20( pred 60 mg) -inflammatory markers trending back up. -consulted pulm- recommended slower taper -10mg taper every 3-4 days. -will hold dose at 60mg for the next 3days. -Ordered BNP to rule out possible cardiac involvement -Chest Xray and BCx to rule out underlining infectious process Hypoxia - HFNC at rest and CPAP with activity -intubated 03/06/20 -03/08/20 -pred 90mg (1mg/kg) PO daily for possible BCNU pneumonitis 03/05-03/08/20 and switched to Dex 6mg daily. Dex was d/c 03/12 and the MATH + protocol -Last CT chest 03/02/20, see above -Consult Pulm; Bronch on 03/06/20 -re-consulted pulm d/t high O2 requirement >> pulm said requiring high oxygen demand for at least another 2weeks is expected. Folliculitis -keep skin clean and dry, will follow closely Right IJ venous clot 09/27/19 -on Lovenox 120 mg Q12H while inpt - previously on Eliquis 5 mg BID Pertinent History: Persistent Fevers: reason for admission, completed 7D course of cem and vanco on 03/08/20 Anxiety/Depression- Lexapro 10 mg daily Restless Leg Syndrome - Requip 0.25 mg QHS Headaches tramadol 50 mg q8h. LP completed 03/01. Results negative for meningitis Discharge Planning: Patients preferred contact information: cell Caregiver: sister, girlfriend Preferred D/C Pharmacy: [facility] Intended lodging: home Referring provider: Cesar Tavares Disposition: Remain on 8S for O2 support [facility]- Blood and Marrow Transplant [facility] Associated attestation - Tony Dumont MD - 03/20/2020 7:58 PM CDT I independently interviewed and examined Jalil Luis with the BMT advanced practice provider. I reviewed my findings and assessment with the advanced practice provider and the patient. I reviewed the below note. Please see note for full detail.I agree with the findings and plan of care as documented by the advanced practice provider * Bill Ferrera MD - 03/19/2020 7:07 AM CDT Autologous Hematopoietic Stem Cell Daily Note: PATIENT IDENTIFIERS: JALIL LUIS is a 49 year old male who is Day +151 (Day 0 is 10/20/19) of an autologous peripheral blood stem cell transplant with a 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 INTERVAL HISTORY: Aurelio continues on CPAP at 80% and HFNC when eating/drinking. Tele with no concerns, changed to just pulse ox monitoring overnight SOB stable, strong dry cough No F/C No N/V/D. Denies bladder or bowel problems Folliculitis noted to chest, non-bothersome. Thinks it's related to telemetry stickers bc he's allergic to the larger pads Nasal drainage with blood tinged drainage over night. Scared him initially. Has been using ocean spray since that time every time he switches out O2 devices ROS: A comprehensive review of systems was negative except for: as noted above MEDICATIONS FOR CURRENT ENCOUNTER: SCHEDULED MEDICATIONS: Followed by Followed by Followed by Followed by Followed by 0.9% NaCl injection 3 mL, Intracatheter, q8h albuterol HFA (PROVENTIL;VENTOLIN;PROAIR) 108 (90 Base) MCG/ACT inhaler 2 puff, Inhalation, q4h artificial tears ophthalmic ointment, Each Eye, q8h ascorbic acid (VITAMIN C) 3,000 mg in 0.9% NaCl IV IVPB, Intravenous, q6h enoxaparin (LOVENOX) injection 120 mg, Subcutaneous, q12h escitalopram (LEXAPRO) tablet 10 mg, Oral, QDAY pantoprazole EC (PROTONIX) tablet 40 mg, Oral, QDAY penicillin V potassium (VEETIDS) solution 250 mg, Oral, q12h rOPINIRole (REQUIP) tablet 0.25 mg, Oral, AT BEDTIME sulfamethoxazole-trimethoprim (BACTRIM DS; SEPTRA DS) 800-160 MG tablet 1 tablet, Oral, MON, WED AND FRI thiamine (VITAMIN B-1) tablet 200 mg, Oral, q12h traMADol (ULTRAM) tablet 50 mg, Oral, q8h valACYclovir (VALTREX) tablet 500 mg, Enteral Tube, BID vitamin D3-cholecalciferol (CHOLECALCIFEROL) 25 MCG (1000 UNITS) tablet 2,000 Units, Oral, QDAY zinc gluconate tablet 50 mg, Oral, QDAY [COMPLETED] predniSONE (DELTASONE) tablet 80 mg, Oral, QDAY WITH BREAKFAST [START ON 03/20/2020] predniSONE (DELTASONE) tablet 60 mg, Oral, QDAY WITH BREAKFAST [START ON 03/21/2020] predniSONE (DELTASONE) tablet 40 mg, Oral, QDAY WITH BREAKFAST [START ON 03/22/2020] predniSONE (DELTASONE) tablet 30 mg, Oral, QDAY WITH BREAKFAST [START ON 03/23/2020] predniSONE (DELTASONE) tablet 20 mg, Oral, QDAY WITH BREAKFAST ?? [START ON 03/24/2020] predniSONE (DELTASONE) tablet 10 mg, Oral, QDAY WITH BREAKFAST ?? CONTINUOUS MEDICATIONS: PRN MEDICATIONS: 0.9% NaCl injection 1-10 mL, Intracatheter, PRN acetaminophen (TYLENOL) tablet 325 mg, Oral, q4h PRN magnesium sulfate 2 g in 50 mL bolus, Intravenous, PRN ondansetron (disintegrating) (ZOFRAN ODT) tablet 4 mg, Oral, q8h PRN ondansetron (ZOFRAN) injection 4 mg, Intravenous, q8h PRN prochlorperazine (COMPAZINE) injection 10 mg, Intravenous, q6h PRN prochlorperazine (COMPAZINE) tablet 5 mg, Oral, q8h PRN ?? saline nasal spray (OCEAN; BABY AYR) 0.65 % nasal spray 2 spray, Each Nostril, q2h PRN VITALS: Vitals: 03/18/20 2016 03/18/20 2347 03/19/20 0724 03/19/20 0830 BP: 139/76 134/73 147/88 Pulse: 94 87 (!) 112 Resp: Temp: 97.9 ??F 97.7 ??F 97.7 ??F SpO2: 100% 100% 97% 95% Weight: Height: Wt Readings from Last 3 Encounters: 03/11/20 117 kg (257 lb 15 oz) 02/26/20 120.2 kg (265 lb) 11/15/19 123.4 kg (272 lb) Date 03/18/20699 - 03/19/20 0659 03/19/20699 - 03/20/20 0659 Shift 9754-6263 4403-9557 24 Hour Total 0054-8154 7764-9201 24 Hour Total INTAKE P.O. 1440 1440 240 240 I.V.(mL/kg/hr) 197.2(0.1) 197.2(0.1) Shift Total(mL/kg) 1637.2(14) 1637.2(14) 240(2.1) 240(2.1) OUTPUT Urine(mL/kg/hr) 2350(1.7) 2350(0.8) Shift Total(mL/kg) 2350(20.1) 2350(20.1) NET -712.8 -712.8 240 240 Weight (kg) 117 117 117 117 117 117 PHYSICAL EXAM: Physical Examination: General appearance - alert, well appearing, and in no distress Mental status - alert, oriented to person, place, and time Chest - on CPAP, wheezing noted throughout, diminished breath sounds Heart - normal rate, regular rhythm, normal S1, S2, no murmurs, rubs, clicks or gallops Abdomen - soft, nontender, nondistended, no masses or organomegaly Extremities - peripheral pulses normal, no pedal edema, no clubbing or cyanosis Skin - follicular rash to chest PIV to right wrist - C/D/I LABS: Recent Labs Component Name 03/18/20235603/18/20 0014 03/16/20235803/16/20 0045 03/15/20 0027 03/14/20 0023 03/13/20 0013 WBC 16.8* 20.4* 18.4* 17.8* 17.9* 20.8* 21.7* RBC 3.42* 3.41* 3.54* 3.24* 3.09* 3.19* 3.36* HGB 10.0* 9.9* 10.0* 9.3* 8.8* 9.1* 9.7* HCT 30.1* 29.4* 30.1* 27.4* 26.2* 26.8* 28.1* MCV 88.0 86.2 85.0 84.6 84.8 84.0 83.6 MCH 29.2 29.0 28.2 28.7 28.5 28.5 28.9 MCHC 33.2 33.7 33.2 33.9 33.6 34.0 34.5 PLTCOUNT 188 188 193 190 181 215 221 RDWSD 62.7* 58.7* 57.3* 54.3* 54.0* 52.7* 51.4* RDW 21.2* 20.4* 19.6* 18.9* 18.3* 18.0* 17.4* MPV - - - - 13.8* 12.9* 12.5 NRBCABS 1.83* 1.94* 1.07* 0.47* 0.34* 0.19* 0.13* NRBCAUTOPCT 10.9* 9.5* 5.8* 2.6* 1.9* 0.9* 0.6* NEUTPCT - 85.0* 86.5* 87.3* 89.7* - 92.4* LYMPHSPCT - 5.1* 4.9* 5.2* 3.1* - 2.7* MONOPCT - 5.5 4.2 3.5 3.3 - 3.1 EOSPCT - 0.0 0.0 0.0 0.1 - 0.0 BASOPCT - 0.3 0.2 0.2 0.1 - 0.1 IMMGRANSPCT - 4.1* 4.2* 3.8* 3.7* - 1.7* NEUTABS 15.96* 17.3* 15.9* 15.6* 16.0* 20.38* 20.1* LYMPHS 0.17* 1.0 0.9 0.9 0.6* 0.21* 0.6* MONO 0.50 1.12* 0.77* 0.62 0.59 0.21 0.67* EOS - 0.01 0.00 0.00 0.01 - 0.00 BASO - 0.06 0.03 0.03 0.02 - 0.02 TOTCELLCNT 100 - - - - 100 - Recent Labs Component Name 03/18/20 2357 03/18/20 0014 03/16/20 2359 BUN 19 21 19 CREATININE 0.8 0.8 0.8 NA 144 140 138 POTASSIUM 4.3 4.8* 4.5 CL 100 100 98 CO2 28 28 29 CALCIUM 8.3* 8.1* 8.5 PROT 5.4* 5.4* 5.6* ALB 2.4* 2.2* 2.3* TBILI 0.2 0.2 0.3 ALKPHOS 99 105 106 ALT 43 44 45 AST 15 19 18 ANIONGAP 20* 17 16 BCR 24* 26* 24* OSMOLALITY 302* 294 290 AGRATIO 0.8* 0.7* 0.7* EGFR >60 >60 >60 Recent Labs Component Name 03/18/20 2357 03/18/20 0014 03/16/20 2359 MAGNESIUM 2.0 2.0 2.0 Recent Labs Component Name 03/18/20 2357 03/18/20 0014 03/16/20 2359 PHOS 3.4 3.3 3.9 Recent Labs Component Name 03/18/20 2357 03/18/20 0014 03/16/20 2359 CRP 1.2* 0.7* 1.1* LDH Total Date Value Ref Range Status 03/18/2020 384 (H) 125 - 243 Units/L Final 03/16/2020 407 (H) 125 - 243 Units/L Final 03/14/2020 435 (H) 125 - 243 Units/L Final Recent Labs Component Name 03/18/20 0014 03/16/20 0045 03/14/20 0023 FERRITIN 775* 688* 782* Recent Labs Component Name 03/18/20 0014 03/16/20 0045 03/14/20 0023 ESR 22* 45* 60* Recurring Labs: Ig03/13/20 162, IVIG given. Repeat in 2 weeks (~03/27/20) CD4: 02/27/20-68 Pathology: BMBX (03/03/20): Path- Normocellular marrow with maturing trilineage hematopoiesis. No morphologic evidence of residual/recurrent non-Hodgkin lymphoma. Flow-NISHA Cyto- 46,XY FISH- negative Infectious Workup Covid swap (03/07/20): positive Bronch (03/06/20): COVID +, otherwise negative. Path reactive alveolar parenchyma with mild chronic inflammation COVID (03/04/20):negative COVID (03/03/20): negative PJP PCR: negative Beta D Glucan: negative Blastomyces: ND Histoplasma blood: negative Histoplasma urine: negative Asperigillus: negative Toxoplasma PCR: negative Bartonella IgG: negative Bartonella IgM: negative Cryptococcus: Negative Urine Legionella: Negative Last BC x2 (03/09): NGTD UA with culture (02/25/20): NGTD RVP (02/25/20): ND Covid swab (02/25/20): negative Covid IgG (02/25/20): Negative RADIOLOGY: PCX (03/05/20): Increase in diffuse patchy airspace opacities in bilateral lungs concerning for multifocal pneumonia. Small left pleural effusion is suggested. There is no pneumothorax. The cardiomediastinal silhouette is Normal Venous Duplex (03/03/20): Negative for DVT CT Chest (03/02/30): 1. Altered distribution of prominent geographic groundglass opacities within the upper and lower lung zones bilaterally. This suggests ongoing inflammatory or infectious process, rather than discrete areas of progressive fibrosis. Areas of groundglass can progress to fibrosis, therefore continued follow-up is advised.2. Re-demonstration of nonocclusive thrombus within the left brachiocephalic vein which extends to the superior vena cava ECHO (03/02/20): Limited echo to assess left ventricular function. There is concentric remodeling of the left ventricle. The left ventricle is normal size. Left ventricular segmental wall motion is normal. Left ventricular systolic function is normal with an ejection fraction by Biplane Method of Discs of 68 %. ASSESSMENT/PLAN: JALIL LUIS is a 49 year old male, who is Day +151 (Day 0 is 10/20/19) of an autologous peripheral blood stem cell transplant with a 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 SYSTEMS: Marginal Zone Lymphoma in CR2 pre-transplant Schema: 5A Prep: BEAM, Cell count 10.4 x 10^6 CD34+cells/kg in 5 bags; day [address] A/P -- BMBx completed (03/03) -Transfusion threshold: Hgb > 7; Plt > 10; CMV +, transfusion pre meds: none needed -Engraftment: ANC day +9 (10/29/19); plt engraftment 11/03/19 (day +14) OI prophylaxis: Bacterial:??Pen VK PJP:??Bactrim DS MWF Viral: Valtrex 500mg BID Covid -tested positive early January, asymptomatic at that time -Inflammatory markers Q 48hrs, Last done 03/18 - trending down -Covid from bronch 03/07 and PROVISIONING ANALYST swab 03/07/ came back positive -remdesivir 03/08 - 03/12 - convalescent plasma 03/10/20 - Starting MATH + protocol 03/12 - Solumedrol 80 mg once then 20 mg q6hr and vitamins. -Switch steroids to pred starting 03/18 then taper over 6 days -03/19/20: taper to 80 mg. Taper daily, will need to watch closely and assess on 03/21/20 if we continue 40 mg daily as he still has significant O2 requirements Hypoxia - HFNC at rest and CPAP with activity -intubated 03/06/20 -03/08/20 -pred 90mg (1mg/kg) PO daily for possible BCNU pneumonitis 03/05-03/08/20 and switched to Dex 6mg daily. Dex was d/c 03/12 and the MATH + protocol -Last CT chest 03/02/20, see above -Consult Pulm; Bronch on 03/06/20 Folliculitis -keep skin clean and dry, will follow closely Right IJ venous clot 09/27/19 -on Lovenox 120 mg Q12H while inpt - previously on Eliquis 5 mg BID Pertinent History: Persistent Fevers: reason for admission, completed 7D course of cem and vanco on 03/08/20 Anxiety/Depression- Lexapro 10 mg daily Restless Leg Syndrome - Requip 0.25 mg QHS Headaches tramadol 50 mg q8h. LP completed 03/01. Results negative for meningitis Discharge Planning: Patients preferred contact information: cell Caregiver: sister, girlfriend Preferred D/C Pharmacy: [facility] Intended lodging: home Referring provider: Cesar Tavares Disposition: Remain on 8S for O2 support [facility]- [facility] and Mar[facility] Transplant [facility] No bmt or heme/onc mgmt MATH protocol I saw Jalil Luis with Tiffanie Nguyen [employer]OVISIONING ANALYST, examined the patient, reviewed the note, and participatedin all of the medical decisions. Bill Ferrera M.D. Director, Blood and Marrow Transplantation [employer], Department of Internal Medicine [facility] * Radha Saeed RN - 03/19/2020 6:32 AM CDT Problem: Pain/Discomfort Goal: Patient exhibits reduced pain/discomfort as evidenced by pain scores Outcome: Ongoing Problem: Pain/Discomfort Goal: Patient uses pharmacological and non-pharmacological pain management strategies. Outcome: Ongoing Problem: Pain/Discomfort Goal: Patient verbalizes acceptable level of pain relief and ability to engage in desired activity. Outcome: Ongoing Problem: Fall Risk Goal: Fall risk and fall related injury risk are minimized Outcome: Ongoing Problem: Isolation Goal: Prevent Transmission of Infection Outcome: Ongoing Problem: Isolation Goal: Prevent Transmission of Infection Outcome: Ongoing Problem: Anemia Goal: Patient able to verbalize preventions and signs & symptoms Outcome: Ongoing Problem: Protective Precautions Goal: Patient will remain free of Nosocomial Infections Outcome: Ongoing * Annika Baldwin RN - 03/18/2020 7:50 AM CDT Problem: Pain/Discomfort Goal: Patient exhibits reduced pain/discomfort as evidenced by pain scores Outcome: Ongoing Goal: Patient uses pharmacological and non-pharmacological pain management strategies. Outcome: Ongoing Problem: Fall Risk Goal: Fall risk and fall related injury risk are minimized Outcome: Ongoing Problem: Isolation Goal: Prevent Transmission of Infection Outcome: Ongoing Problem: Isolation Goal: Prevent Transmission of Infection Outcome: Ongoing Problem: Skin Integrity Goal: Skin integrity is maintained or improved Outcome: Ongoing * Bill Ferrera MD - 03/18/2020 7:27 AM CDT Autologous Hematopoietic Stem Cell Daily Note: PATIENT IDENTIFIERS: JALIL LUIS is a 49 year old male who is Day +149 (Day 0 is 10/20/19) of an autologous peripheral blood stem cell transplant with a 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 INTERVAL HISTORY: Aurelio is awake and feeling stable this morning Continues to use CPAP at 80% all the time unless he's eating/drinking and he uses HFNC. He's tried to wean O2 to 75% and SpO2 dropped to upper 80s so when back up to 80%. Has stable shortness of breath and strong, dry cough. Also notes nasal congestion when he switches O2 devices he has a lot of nasal drainage to clear Continues to work with PT No F/C No N/V/D. Having normal BMs, no problems urinating. No swelling No chest pain or heart palpitations ROS: A comprehensive review of systems was negative except for: as noted above MEDICATIONS FOR CURRENT ENCOUNTER: SCHEDULED MEDICATIONS: Followed by Followed by Followed by Followed by Followed by Followed by 0.9% NaCl injection 3 mL, Intracatheter, q8h albuterol HFA (PROVENTIL;VENTOLIN;PROAIR) 108 (90 Base) MCG/ACT inhaler 2 puff, Inhalation, q4h artificial tears ophthalmic ointment, Each Eye, q8h ascorbic acid (VITAMIN C) 3,000 mg in 0.9% NaCl IV IVPB, Intravenous, q6h enoxaparin (LOVENOX) injection 120 mg, Subcutaneous, q12h escitalopram (LEXAPRO) tablet 10 mg, Oral, QDAY pantoprazole EC (PROTONIX) tablet 40 mg, Oral, QDAY penicillin V potassium (VEETIDS) solution 250 mg, Oral, q12h predniSONE (DELTASONE) tablet 100 mg, Oral, QDAY WITH BREAKFAST rOPINIRole (REQUIP) tablet 0.25 mg, Oral, AT BEDTIME sulfamethoxazole-trimethoprim (BACTRIM DS; SEPTRA DS) 800-160 MG tablet 1 tablet, Oral, MON, WED AND FRI thiamine (VITAMIN B-1) tablet 200 mg, Oral, q12h traMADol (ULTRAM) tablet 50 mg, Oral, q8h valACYclovir (VALTREX) tablet 500 mg, Enteral Tube, BID vitamin D3-cholecalciferol (CHOLECALCIFEROL) 25 MCG (1000 UNITS) tablet 2,000 Units, Oral, QDAY zinc gluconate tablet 50 mg, Oral, QDAY [START ON 03/19/2020] predniSONE (DELTASONE) tablet 80 mg, Oral, QDAY WITH BREAKFAST [START ON 03/20/2020] predniSONE (DELTASONE) tablet 60 mg, Oral, QDAY WITH BREAKFAST [START ON 03/21/2020] predniSONE (DELTASONE) tablet 40 mg, Oral, QDAY WITH BREAKFAST [START ON 03/22/2020] predniSONE (DELTASONE) tablet 30 mg, Oral, QDAY WITH BREAKFAST [START ON 03/23/2020] predniSONE (DELTASONE) tablet 20 mg, Oral, QDAY WITH BREAKFAST ?? [START ON 03/24/2020] predniSONE (DELTASONE) tablet 10 mg, Oral, QDAY WITH BREAKFAST ?? CONTINUOUS MEDICATIONS: PRN MEDICATIONS: 0.9% NaCl injection 1-10 mL, Intracatheter, PRN acetaminophen (TYLENOL) tablet 325 mg, Oral, q4h PRN magnesium sulfate 2 g in 50 mL bolus, Intravenous, PRN ondansetron (disintegrating) (ZOFRAN ODT) tablet 4 mg, Oral, q8h PRN ondansetron (ZOFRAN) injection 4 mg, Intravenous, q8h PRN prochlorperazine (COMPAZINE) injection 10 mg, Intravenous, q6h PRN ?? prochlorperazine (COMPAZINE) tablet 5 mg, Oral, q8h PRN VITALS: Vitals: 03/17/20 1243 03/17/20 1301 03/17/20 2049 03/18/20 0014 BP: 125/73 143/91 135/92 Pulse: 97 98 87 Resp: Temp: 97.7 ??F 98 ??F 98.1 ??F SpO2: 97% 95% 98% Weight: Height: Wt Readings from Last 3 Encounters: 03/11/20 117 kg (257 lb 15 oz) 02/26/20 120.2 kg (265 lb) 11/15/19 123.4 kg (272 lb) Date 03/17/20 0700 - 03/18/20 0659 03/18/20 0700 - 03/19/20 0659 Shift 1875-0704 2393-4083 24 Hour Total 9833-7472 1807-9408 24 Hour Total INTAKE P.O. 1320 1320 I.V.(mL/kg/hr) 314.4(0.2) 99.4(0.1) 413.7(0.1) Shift Total(mL/kg) 1634.4(14) 99.4(0.8) 1733.7(14.8) OUTPUT Urine(mL/kg/hr) 1250(0.9) 650(0.5) 1900(0.7) Shift Total(mL/kg) 1250(10.7) 650(5.6) 1900(16.2) NET 384.4 -550.6 -166.3 Weight (kg) 117 117 117 117 117 117 PHYSICAL EXAM: Physical Examination: General appearance - alert, well appearing, and in no distress Mental status - alert, oriented to person, place, and time Chest - on CPAP, minimal air movement throughout, wheezing noted in BLL Heart - normal rate, regular rhythm, normal S1, S2, no murmurs, rubs, clicks or gallops Abdomen - soft, nontender, nondistended, no masses or organomegaly Extremities - peripheral pulses normal, no pedal edema, no clubbing or cyanosis Skin - scattered ecchymosis from prior IV PIV to right wrist - C/D/I LABS: Recent Labs Component Name 03/18/20 0014 03/16/20 2359 03/16/20 0045 03/15/20 0027 03/14/20 0023 03/13/20 0013 WBC 20.4* 18.4* 17.8* 17.9* 20.8* 21.7* RBC 3.41* 3.54* 3.24* 3.09* 3.19* 3.36* HGB 9.9* 10.0* 9.3* 8.8* 9.1* 9.7* HCT 29.4* 30.1* 27.4* 26.2* 26.8* 28.1* MCV 86.2 85.0 84.6 84.8 84.0 83.6 MCH 29.0 28.2 28.7 28.5 28.5 28.9 MCHC 33.7 33.2 33.9 33.6 34.0 34.5 PLTCOUNT 188 193 190 181 215 221 RDWSD 58.7* 57.3* 54.3* 54.0* 52.7* 51.4* RDW 20.4* 19.6* 18.9* 18.3* 18.0* 17.4* MPV - - - 13.8* 12.9* 12.5 NRBCABS 1.94* 1.07* 0.47* 0.34* 0.19* 0.13* NRBCAUTOPCT 9.5* 5.8* 2.6* 1.9* 0.9* 0.6* NEUTPCT 85.0* 86.5* 87.3* 89.7* - 92.4* LYMPHSPCT 5.1* 4.9* 5.2* 3.1* - 2.7* MONOPCT 5.5 4.2 3.5 3.3 - 3.1 EOSPCT 0.0 0.0 0.0 0.1 - 0.0 BASOPCT 0.3 0.2 0.2 0.1 - 0.1 IMMGRANSPCT 4.1* 4.2* 3.8* 3.7* - 1.7* NEUTABS 17.3* 15.9* 15.6* 16.0* 20.38* 20.1* LYMPHS 1.0 0.9 0.9 0.6* 0.21* 0.6* MONO 1.12* 0.77* 0.62 0.59 0.21 0.67* EOS 0.01 0.00 0.00 0.01 - 0.00 BASO 0.06 0.03 0.03 0.02 - 0.02 TOTCELLCNT - - - - 100 - Recent Labs Component Name 03/18/20 0014 03/16/20 2359 03/16/20 0045 BUN 21 19 18 CREATININE 0.8 0.8 0.7 NA 140 138 142 POTASSIUM 4.8* 4.5 4.6* CL 100 98 103 CO2 28 29 28 CALCIUM 8.1* 8.5 8.2* PROT 5.4* 5.6* 5.2* ALB 2.2* 2.3* 2.1* TBILI 0.2 0.3 0.3 ALKPHOS 105 106 108 ALT 44 45 38 AST 19 18 15 ANIONGAP 17 16 16 BCR 26* 24* 26* OSMOLALITY 294 290 298 AGRATIO 0.7* 0.7* 0.7* EGFR >60 >60 >60 Recent Labs Component Name 03/18/20 0014 03/16/20 2359 03/16/20 0045 MAGNESIUM 2.0 2.0 2.3 Recent Labs Component Name 03/18/20 0014 03/16/20 2359 03/16/20 0045 PHOS 3.3 3.9 3.8 Recent Labs Component Name 03/18/20 0014 03/16/20 2359 03/16/20 0045 CRP 0.7* 1.1* 1.6* LDH Total Date Value Ref Range Status 03/18/2020 384 (H) 125 - 243 Units/L Final 03/16/2020 407 (H) 125 - 243 Units/L Final 03/14/2020 435 (H) 125 - 243 Units/L Final Recent Labs Component Name 03/18/20 0014 03/16/20 0045 03/14/20 0023 FERRITIN 775* 688* 782* Recent Labs Component Name 03/18/20 0014 03/16/20 0045 03/14/20 0023 ESR 22* 45* 60* Pathology: CD4: 02/27/20-68 BMBX (03/03/20): Path- Normocellular marrow with maturing trilineage hematopoiesis. No morphologic evidence of residual/recurrent non-Hodgkin lymphoma. Flow-NISHA Cyto- 46,XY FISH- negative Infectious Workup Covid swap (03/07/20): positive Bronch (03/06/20): COVID +, otherwise negative. Path reactive alveolar parenchyma with mild chronic inflammation COVID (03/04/20):negative COVID (03/03/20): negative PJP PCR: negative Beta D Glucan: negative Blastomyces: ND Histoplasma blood: negative Histoplasma urine: negative Asperigillus: negative Toxoplasma PCR: negative Bartonella IgG: negative Bartonella IgM: negative Cryptococcus: Negative Urine Legionella: Negative Last BC x2 (03/09): NGTD UA with culture (02/25/20): NGTD RVP (02/25/20): ND Covid swab (02/25/20): negative Covid IgG (02/25/20): Negative RADIOLOGY: PCX (03/05/20): Increase in diffuse patchy airspace opacities in bilateral lungs concerning for multifocal pneumonia. Small left pleural effusion is suggested. There is no pneumothorax. The cardiomediastinal silhouette is Normal Venous Duplex (03/03/20): Negative for DVT CT Chest (03/02/30): 1. Altered distribution of prominent geographic groundglass opacities within the upper and lower lung zones bilaterally. This suggests ongoing inflammatory or infectious process, rather than discrete areas of progressive fibrosis. Areas of groundglass can progress to fibrosis, therefore continued follow-up is advised.2. Re-demonstration of nonocclusive thrombus within the left brachiocephalic vein which extends to the superior vena cava ECHO (03/02/20): Limited echo to assess left ventricular function. There is concentric remodeling of the left ventricle. The left ventricle is normal size. Left ventricular segmental wall motion is normal. Left ventricular systolic function is normal with an ejection fraction by Biplane Method of Discs of 68 %. ASSESSMENT/PLAN: JALIL LUIS is a 49 year old male, who is Day +149 (Day 0 is 10/20/19) of an autologous peripheral blood stem cell transplant with a 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 SYSTEMS: Marginal Zone Lymphoma in CR2 pre-transplant Schema: 5A Prep: BEAM, Cell count 10.4 x 10^6 CD34+cells/kg in 5 bags; day [address] A/P -- BMBx completed (03/03) -Transfusion threshold: Hgb > 7; Plt > 10; CMV +, transfusion pre meds: none needed -Engraftment: ANC day +9 (10/29/19); plt engraftment 11/03/19 (day +14) OI prophylaxis: Bacterial:??Pen VK PJP:??Bactrim DS MWF Viral: Valtrex 500mg BID Covid -tested positive early January, asymptomatic at that time -Inflammatory markers Q 48hrs, Last done 03/18 - trending down -Covid from bronch 03/07 and PROVISIONING ANALYST swab 03/07/ came back positive -remdesivir started 03/08 - 03/12 - convalescent plasma, (03/10/20). - Starting MATH + protocol 03/12 - Solumedrol 80 mg once then 20 mg q6hr and vitamins. -Switch steroids to pred starting 03/18 then taper over 6 days -03/19/20: taper to 80 mg. Will need to watch closely and assess on 03/21/20 if we continue 40 mg daily as he still has significant O2 requirements Persistent Fevers -Afebrile, last fever 03/09 -BC Q24 when febrile -IgG 03/13/20 - 162 , IVIG given - CT C/A/P, results above - ID consult, appreciate recs - Completed 7D course of cem and vanco on 03/08/20 Hypoxia - HFNC at rest and CPAP with activity -intubated 03/06/20 -03/08/20 -pred 90mg (1mg/kg) PO daily for possible BCNU pneumonitis 03/05-03/08/20 and switched to Dex 6mg daily. Dex was d/c 03/12 and the [facility] + protocol -Last CT chest 03/02/20, see above -Consult Pulm; Bronch on 03/06/20 Right IJ venous clot 09/27/19 -on Lovenox 120 mg Q12H while inpt - previously on Eliquis 5 mg BID Pertinent Medical History: Anxiety/Depression- Lexapro 10 mg daily Restless Leg Syndrome - Requip 0.25 mg QHS Headaches tramadol 50 mg q8h. LP completed 03/01. Results negative for meningitis Discharge Planning: Patients preferred contact information: cell Caregiver: sister, girlfriend Preferred D/C Pharmacy: [facility] Intended lodging: home Referring provider: Cesar Tavares Disposition: Remain on 8S for O2 support MIS[facility]- [facility] Day +150 autoSCT for MZL No active heme onc or BMT management Taper steroid per ID [facility] protocol tomorrow Rash appears to be follicullitis, possibly steroid induced, on chest OK to follow I saw Jalil Luis with Tiffanie Nguyen PROVISIONING ANALYST, examined the patient, reviewed the note, and participatedin all of the medical decisions. Bill Ferrera M.D. Director, Blood and Marrow Transplantation Nailing Machine Operator [employer], Department of Internal Medicine [facility] * Katty Zuniga RN - 03/18/2020 4:41 AM CDT Problem: Pain/Discomfort Goal: Patient exhibits reduced pain/discomfort as evidenced by pain scores Outcome: Ongoing Goal: Patient uses pharmacological and non-pharmacological pain management strategies. Outcome: Ongoing Goal: Patient verbalizes acceptable level of pain relief and ability to engage in desired activity. Outcome: Ongoing Problem: Fall Risk Goal: Fall risk and fall related injury risk are minimized Outcome: Ongoing Problem: Isolation Goal: Prevent Transmission of Infection Outcome: Ongoing * Keli Case, JOSE DAVID-SEWING DEMONSTRATOR - 03/17/2020 3:11 PM CDT Autologous Hematopoietic Stem Cell Daily Note: PATIENT IDENTIFIERS: JALIL LUIS is a 49 year old male who is Day +148 (Day 0 is 10/20/19) of an autologous peripheral blood stem cell transplant with a 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 INTERVAL HISTORY: Awake and in bed this AM Feels his breathing is getting better, still using CPAP for activity and HFNC while at rest. Eating and drinking ok. Inflammatory markers continue down trending Feels SOB while working with PT but not as bad as it was while in the ICU Denies F/C/N/V/D ROS: A comprehensive review of systems was negative except for: as noted above MEDICATIONS FOR CURRENT ENCOUNTER: SCHEDULED MEDICATIONS: 0.9% NaCl injection 3 mL, Intracatheter, q8h albuterol HFA (PROVENTIL;VENTOLIN;PROAIR) 108 (90 Base) MCG/ACT inhaler 2 puff, Inhalation, q4h artificial tears ophthalmic ointment, Each Eye, q8h ascorbic acid (VITAMIN C) 3,000 mg in 0.9% NaCl IV IVPB, Intravenous, q6h enoxaparin (LOVENOX) injection 120 mg, Subcutaneous, q12h escitalopram (LEXAPRO) tablet 10 mg, Oral, QDAY methylPREDNISolone sod succ (SOLU-Medrol) injection 20 mg, Intravenous, q6h pantoprazole EC (PROTONIX) tablet 40 mg, Oral, QDAY penicillin V potassium (VEETIDS) solution 250 mg, Oral, q12h rOPINIRole (REQUIP) tablet 0.25 mg, Oral, AT BEDTIME sulfamethoxazole-trimethoprim (BACTRIM DS; SEPTRA DS) 800-160 MG tablet 1 tablet, Oral, MON, WED AND FRI thiamine (VITAMIN B-1) tablet 200 mg, Oral, q12h traMADol (ULTRAM) tablet 50 mg, Oral, q8h valACYclovir (VALTREX) tablet 500 mg, Enteral Tube, BID vitamin D3-cholecalciferol (CHOLECALCIFEROL) 25 MCG (1000 UNITS) tablet 2,000 Units, Oral, QDAY ?? zinc gluconate tablet 50 mg, Oral, QDAY ?? CONTINUOUS MEDICATIONS: PRN MEDICATIONS: 0.9% NaCl injection 1-10 mL, Intracatheter, PRN acetaminophen (TYLENOL) tablet 325 mg, Oral, q4h PRN magnesium sulfate 2 g in 50 mL bolus, Intravenous, PRN ondansetron (disintegrating) (ZOFRAN ODT) tablet 4 mg, Oral, q8h PRN ondansetron (ZOFRAN) injection 4 mg, Intravenous, q8h PRN prochlorperazine (COMPAZINE) injection 10 mg, Intravenous, q6h PRN ?? prochlorperazine (COMPAZINE) tablet 5 mg, Oral, q8h PRN VITALS: Vitals: 03/17/20 0408 03/17/20 0920 03/17/20 1243 03/17/20 1301 BP: 140/91 136/87 125/73 Pulse: 69 97 97 Resp: Temp: 98.1 ??F 97.6 ??F 97.7 ??F SpO2: 99% 95% 97% Weight: Height: Wt Readings from Last 3 Encounters: 03/11/20 117 kg (257 lb 15 oz) 02/26/20 120.2 kg (265 lb) 11/15/19 123.4 kg (272 lb) Date 03/16/20 07 - 03/17/20 0659 03/17/20 07 - 03/18/20 0659 Shift [id number] 2139-9348 24 Hour Total 1843-9628 4052-9102 24 Hour Total INTAKE P.O. 840 840 I.V.(mL/kg/hr) 403.1(0.3) 100.1(0.1) 503.2(0.2) 194.4 194.4 Shift Total(mL/kg) 403.1(3.4) 100.1(0.9) 503.2(4.3) 1034.4(8.8) 1034.4(8.8) OUTPUT Urine(mL/kg/hr) 1900(1.4) 2800(2) 4700(1.7) 1000 1000 Shift Total(mL/kg) 1900(16.2) 2800(23.9) 4700(40.2) 1000(8.5) 1000(8.5) NET -1496.9 -2699.9 -4196.8 34.4 34.4 Weight (kg) 117 117 117 117 117 117 PHYSICAL EXAM: General appearance - alert, well appearing, and in no distress Mental status - alert, oriented to person, place, and time Chest - clear to auscultation, no wheezes, rales or rhonchi, symmetric air entry Heart - normal rate, regular rhythm, normal S1, S2, no murmurs, rubs, clicks or gallops Abdomen - soft, nontender, nondistended, no masses or organomegaly Musculoskeletal - no joint tenderness, deformity or swelling Extremities - peripheral pulses normal, no pedal edema, no clubbing or cyanosis Skin - normal coloration and turgor, no rashes, no suspicious skin lesions noted PIV - site clean, dressing intact, no swelling, redness or tenderness noted LABS: Recent Labs Component Name 03/16/20 2359 03/16/20 0045 03/15/20 0027 03/14/20 0023 03/13/20 0013 WBC 18.4* 17.8* 17.9* 20.8* 21.7* RBC 3.54* 3.24* 3.09* 3.19* 3.36* HGB 10.0* 9.3* 8.8* 9.1* 9.7* HCT 30.1* 27.4* 26.2* 26.8* 28.1* MCV 85.0 84.6 84.8 84.0 83.6 MCH 28.2 28.7 28.5 28.5 28.9 MCHC 33.2 33.9 33.6 34.0 34.5 PLTCOUNT 193 190 181 215 221 RDWSD 57.3* 54.3* 54.0* 52.7* 51.4* RDW 19.6* 18.9* 18.3* 18.0* 17.4* MPV - - 13.8* 12.9* 12.5 NRBCABS 1.07* 0.47* 0.34* 0.19* 0.13* NRBCAUTOPCT 5.8* 2.6* 1.9* 0.9* 0.6* NEUTPCT 86.5* 87.3* 89.7* - 92.4* LYMPHSPCT 4.9* 5.2* 3.1* - 2.7* MONOPCT 4.2 3.5 3.3 - 3.1 EOSPCT 0.0 0.0 0.1 - 0.0 BASOPCT 0.2 0.2 0.1 - 0.1 IMMGRANSPCT 4.2* 3.8* 3.7* - 1.7* NEUTABS 15.9* 15.6* 16.0* 20.38* 20.1* LYMPHS 0.9 0.9 0.6* 0.21* 0.6* MONO 0.77* 0.62 0.59 0.21 0.67* EOS 0.00 0.00 0.01 - 0.00 BASO 0.03 0.03 0.02 - 0.02 TOTCELLCNT - - - 100 - Recent Labs Component Name 03/16/20235803/16/205 03/15/20 0027 BUN 19 18 13 CREATININE 0.8 0.7 0.8 NA 138 142 140 POTASSIUM 4.5 4.6* 4.4 CL 98 103 104 CO2 29 28 27 CALCIUM 8.5 8.2* 7.7* PROT 5.6* 5.2* 5.1* ALB 2.3* 2.1* 1.9* TBILI 0.3 0.3 0.3 ALKPHOS 106 108 114 ALT 45 38 40 AST 18 15 13 ANIONGAP 16 16 13 BCR 24* 26* 16 OSMOLALITY 290 298 292 AGRATIO 0.7* 0.7* 0.6* EGFR >60 >60 >60 Recent Labs Component Name 03/16/20235803/16/205 03/15/20 0027 MAGNESIUM 2.0 2.3 1.9 Recent Labs Component Name 03/16/202359 03/13/20 0045 03/15/20 0027 PHOS 3.9 3.8 2.6 Pathology: CD4: see epic 02/26 BMBX (03/03/20): Path- Normocellular marrow with maturing trilineage hematopoiesis. No morphologic evidence of residual/recurrent non-Hodgkin lymphoma. Flow-NISHA Cyto- pending FISH- pending Infectious Workup Covid swap (03/07/20): positive Bronch (03/06/20): COVID +, otherwise negative. Path pending COVID (03/04/20):negative COVID (03/03/20): negative PJP PCR: negative Beta D Glucan: negative Blastomyces: ND Histoplasma blood: negative Histoplasma urine: negative Asperigillus: negative Toxoplasma PCR: negative Bartonella IgG: negative Bartonella IgM: negative Cryptococcus: Negative Urine Legionella: Negative Last BC x2 (03/09): NGTD UA with culture (02/25/20): NGTD RVP (02/25/20): ND Covid swab (02/25/20): negative Covid IgG (02/25/20): Negative RADIOLOGY: PCX (03/05/20): Increase in diffuse patchy airspace opacities in bilateral lungs concerning for multifocal pneumonia. Small left pleural effusion is suggested. There is no pneumothorax. The cardiomediastinal silhouette is Normal Venous Duplex (03/03/20): Negative for DVT CT Chest (03/02/30): 1. Altered distribution of prominent geographic groundglass opacities within the upper and lower lung zones bilaterally. This suggests ongoing inflammatory or infectious process, rather than discrete areas of progressive fibrosis. Areas of groundglass can progress to fibrosis, therefore continued follow-up is advised.2. Re-demonstration of nonocclusive thrombus within the left brachiocephalic vein which extends to the superior vena cava CT C/A/P (02/26/20): 1. Patchy, peripheral predominant groundglass opacities in [...] acute process identified in the abdomen or pelvis ECHO (03/02/20): Limited echo to assess left ventricular function. There is concentric remodeling of the left ventricle. The left ventricle is normal size. Left ventricular segmental wall motion is normal. Left ventricular systolic function is normal with an ejection fraction by Biplane Method of Discs of 68 %. 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 SYSTEMS: Marginal Zone Lymphoma in CR2 pre-transplant Schema: 5A Prep: BEAM, Cell count 10.4 x 10^6 CD34+cells/kg in 5 bags; day [address] A/P -- BMBx completed (03/03) -Transfusion threshold: Hgb > 7; Plt > 10; CMV +, transfusion pre meds: none needed -Engraftment: ANC day +9 (10/29/19); plt engraftment 11/03/19 (day +14) OI prophylaxis: Bacterial:??Pen VK PJP:??Bactrim DS MWF Viral: Valtrex 500mg BID Covid -tested positive early January, asymptomatic at that time -Inflammatory markers Q 48hrs, Last done 03/16 - trending down -Covid from bronch 03/07 and PROVISIONING ANALYST swab 03/07/ came back positive -remdesivir started 03/08 - 03/12 - convalescent plasma, (03/10/20). - Starting MATH + protocol 03/12 - Solumedrol 80 mg once then 20 mg q6hr and vitamins. -Switch steroids to pred starting 03/18 then taper over 6 days Persistent Fevers -Afebrile, last fever 03/09 -BC Q24 when febrile - IgG - 162 , IVIG given - CT C/A/P, results above - ID consult, appreciate recs - Completed 7D course of cem and vanco on 03/08/20 Hypoxia - HFNC at rest and CPAP with activity -intubated 03/06/20 -03/08/20 -pred 90mg (1mg/kg) PO daily for possible BCNU pneumonitis 03/05-03/08/20 and switched to Dex 6mg daily. Dex was d/c 03/12 and the MATH + protocol -Last CT chest 03/02/20, see above -Consult Pulm; Bronch on 03/06/20 Headaches - tramadol 50 mg q8h - Neuro consult >LP completed 03/01. Results negative for meningitis Right IJ venous clot 09/27/19 -on Lovenox 120 mg Q12H while inpt - previously on Eliquis 5 mg BID Pertinent Medical History: Anxiety/Depression- Lexapro 10 mg daily Restless Leg Syndrome - Requip 0.25 mg QHS Discharge Planning: Patients preferred contact information: cell Caregiver: sister, girlfriend Preferred D/C Pharmacy: [facility] Intended lodging: home Referring provider: Cesar Tavares Disposition: Remain on 8S Keli Esi, AGNP-BC Blood and Marrow Transplant [facility] Associated attestation - Tony Dumont MD - 03/18/2020 12:42 PM CDT I independently interviewed and examined Jalil Luis with the BMT advanced practice provider. I reviewed my findings and assessment with the advanced practice provider and the patient. I reviewed the below note. Please see note for full detail.I agree with the findings and plan of care as documented by the advanced practice provider * Inga Cortez, OT - 03/17/2020 2:10 PM CDT [facility] Physical Medicine and Rehabilitation Occupational Therapy Progress Note Patient: Jalil Luis Med Record Number: [id number] Date of : 1970 Age: [age] year old Co-Tx w/ PT Patient is COVID-19 positive. PPE donned by therapist throughout session - disposable gown, gloves, N95 mask, eye protection, faceshield, hair net, alva cover and shoe covers. Discharge Recommendation: Patient will benefit from multidisciplinary inpatient therapies (LTAC) Precautions: FALLS SAFETY *COVID-19 +* Subjective: You guys are late At start of therapy session, patient found in bed and with no alarm. Pain: Patient has 0 out of 10 pain in body. Nurse notified. Activities of Daily Living Feeding:NT Grooming/Bathing: Stand By Assist Upper Extremity Dressing: not tested Lower Extremity Dressing: Stand By Assist Toileting/Transfers: Stand By Assist --MIN A to manage bipap lines, but pt able to complete esvin care himself (see VITALS section below) Mobility: Assist device: none Supine to/from Sit:Independent Sit to/from Stand: Stand By Assist Bed to/from Chair: Stand By Assist Functional Mobility: From bed to bathroom with Stand By Assist Splint Issued/Checked: none Splint Check Completed: N/A Balance: Static Sitting: good Dynamic Sitting: good Static Standing: good minus Dynamic Standing: good minus Vitals: Rest BP: HR: 102 SpO2 SpO2 98% Room Air L 02 BIPAP on CPAP setting 80% Fi02 Ex/Gait/ Activity Without 02 BP: HR: SpO2 Room Air Ex/Gait/ Activity With 02 BP: HR: 145 143 135 140 146 140 150 129 161 142 133 150 130 143 131 115 109 137 120 SpO2 81%--txfer to toilet 80% 84%--on toilet 87%--about 3 mins on toilet 88%--pt asked to increase Fi02 91% 91%--still on toilet; felt his heart racing 93%--Fi02 increased to 90% 87%--during esvin care (wiping) 90%--2 mins after sitting on toilet 93%--maintained for several mins as long as resting on toilet and not moving 88%--after wiping again 94%--sitting after last wipe. About 2 mins 82%--after getting back to bed from toilet 90%--2 mins in bed, resting 97%--recovered. 3 mins in bed. 95%--Fi02 back to 80% 87%--Fi02 to 75%--stayed in this area for 3 minutes 91%--Fi02 back to 80% L 02 SAME Changed Fi02 to 85% Changed Fi02 to 90% Fi02 back to 80% Post Activity BP: 143/95 HR: 115-125 SpO2 SpO2 94% L 02 Room Air Fi02 80% Observations: Pt stated that he wished he had gotten OOB yesterday (he refused therapy after receiving some bad news) and felt like he needed more time to recover today. Activity tolerance: poor Cognitive/Perceptual: A&Ox4; pt is cooperative, pleasant, and motivated. Follows 100% of commands. Not impulsive. Good insight and awareness. Treatment/Therapeutic Exercise: Treatment session this date focused on ADL training Functional transfer training Endurance training Bed mobility Energy conservation Safety awareness HEP training Patient/Family Teaching: Exercise, Gait, Mobility and Self care Equipment Issued: none Update Treatment Plan/Goals : Pt continues to benefit from skilled OT to improve independence with activities of daily living, increase strength, endurance, range of motion and decrease pain. Short Term Goals: Patient will perform grooming?Standing at sink and With modified independence Patient will perform lower extremity dressing?With modified independence Patient will perform toileting?With modified independence ?? Residential Goal:Patient to discharge to appropriate next level of inpatient care If patient is discharged from the facility, this note serves as a discharge note if further occupational therapy visits did not occur. Following therapy session, patient left in bed, with call light within reach, with Annika RILEY aware and with RN/CP rehab cues written on white board. Inga Cortez OT * Amy Anderson, PT - 03/17/2020 2:00 PM CDT [facility] Physical Medicine and Rehabilitation PhysicalTherapy Progress Note Patient: Jalil Luis [facility] Record Number: [id number] Date of : 1970 Age: [age] year old Pt is COVID POSITIVE.??PT and OT wear goggles, N95 mask, alva covers, face shield, gown, and gloves during session.??Co Treat with OT due to medical complexity and level of skilled assist required, especially due to vitals status.? Discharge Recommendation:??Patient will benefit from multidisciplinary inpatient therapies. Recommendation changed to LTAC due to current high level of O2 requirement and decreased endurance. Subjective: I can tell that I didn't get out of bed yesterday. Patient currently using no assistive device. Mental Status:??Alert and oriented X4; 100% command follow. Pleasant and cooperative. ?? At start of therapy session, patient found??in bed and with no alarm. ?? Pain: Patient has??0??out of 10 pain reported. No follow up indicated.? Weight Bearing Status:??BLE WBAT?? Mobility: Rolling: not tested Supine to Sit:Independent Sit to Supine: Independent Sit to Stand:Independent Bed to Chair: not tested Gait: Device:none Assistance: Stand By Assist Distance: 10ft x2 Deviations: Pt requires assistance managing lines to and from bathroom. Unable to ambulate further due to poor endurance, O2 status. Balance: Static Sitting: good Dynamic sitting: good Static Standing: good minus Dynamic Standing: fair plus Stairs : NT Vitals: Rest BP: ?? HR: 102 SpO2 ?? SpO2 98% Room Air ?? L 02 ?? BIPAP on CPAP setting 80% Fi02 Ex/Gait/ Activity Without 02 BP: ?? HR: ?? SpO2 ?? Room Air ?? Ex/Gait/ Activity With 02 BP: ?? HR: 145 143 135 140 ? 146 140 ?? 150 ?? 129 ?? 161 ?? 142 ?? 133 ? 150 ?? 130 ?? 143 ?? 131 ?? 115 ?? 109 ?? 137 ? 120 SpO2 81%--txfer to toilet 80% 84%--on toilet 87%--about 3 mins on toilet 88%--pt asked to increase Fi02 91% 91%--still on toilet; felt his heart racing 93%--Fi02 increased to ?? 90% ?? 87%--during esivn care (wiping) 90%--2 mins after sitting on toilet 93%--maintained for several mins as long as resting on toilet and not moving ?? 88%--after wiping again ?? 94%--sitting after last wipe. About 2 mins 82%--after getting back to bed from toilet 90%--2 mins in bed, resting ?? 97%--recovered. 3 mins in bed. 95%--Fi02 back to 80% ?? 87%--Fi02 to 75%--stayed in this area for 3 minutes ?? 91%--Fi02 back to 80% ? L 02 SAME ? Changed Fi02 to 85% ? Changed Fi02 to 90% ? Fi02 back to 80% ?? Post Activity BP: 143/95 HR: 115-125 SpO2 ?? SpO2 94% L 02 ?? Room Air Fi02 80% Observations: SPO2 drops slightly with mobility, however recovers well. HR noted to increase significantly with activity, up to 160s. Pt requires increased time for heart rate recovery. Activity Tolerance: Patient's activity tolerance: poor 2/2 HR, O2 status Treatment/therapeutic Exercise: Pt sits up on side of bed and ambulates to bathroom. He requires extended recover time for HR recovery after ambulation and after performing esvin care each time. Pt noted to have improved O2 recovery this session, but did bump up FIO2 to assist with HR recovery/lessening work for pt. He ambulates back to bed and recovers most quickly when in bed. Patient/Family Teaching: Exercise, Gait and Mobility Patient demonstrated Good understanding of instructions given. Short Term Goals: Goal Formation?With patient Patient will perform bed mobility:??Independent (MET 03/15) Patient will transfer sit to/from stand:??Independent (MET 03/15) Patient will transfer bed to/from chair:??Independent (updated 03/15) Patient will ambulate??50??feet with Stand By Assist??and appropriate AD Patient will ascend/descend??10??steps: Stand By Assist??and hand rail assist?? Patient will perform home exercise program independently ?? Family Nurse Practitioner Goal(s): Patient to be independent/baseline with functional mobility and self care and be able to safely discharge to prior level of care ?? Update Treatment Plan: Continue with current PT plan of care to improve safety and functional mobility, especially focusing on attempting to increase endurance, gait If patient is discharged from the facility, this note serves as a discharge note if further physical therapy visits did not occur. Following therapy session, patient left in bed, with call light within reach and with RNAnnika. Amy Anderson, PT 03/17/2020 * Alecia Aldana RN - 03/17/2020 9:53 AM CDT Case Management Progress Note Anticipated level of care at discharge: Home Discharge Plan: Patient is Day 148 of autologous stem cell transplant. Patient is COVID +, currently requiring high amounts of O2. Switching back and forth between full face CPAP vs high flow nasal cannula. CM discussed with BMT regarding discharge planning. Pulmonary consulted to assist with weaning O2. Anticipate patient will be weaned enough to return home on NC. CM will continue to follow Basic Needs Assessment (BNA) Score: 9 Complex Needs Assessment (CANINE SERVICE TEACHER) Score: N/A Social Support Domain Score: Medical Status and Health Trajectory Domain Score: Medical Home and Access to Services Domain Score: Anticipated Discharge Date: Anticipated Discharge Date: 03/21/20 Equipment at Home: Equipment At Home: None Pharmacy benefit: Yes Name: Alecia Aldana RN * Annika Baldwin RN - 03/17/2020 9:12 AM CDT Problem: Pain/Discomfort Goal: Patient exhibits reduced pain/discomfort as evidenced by pain scores Outcome: Ongoing Goal: Patient verbalizes acceptable level of pain relief and ability to engage in desired activity. Outcome: Ongoing Problem: Fall Risk Goal: Fall risk and fall related injury risk are minimized Outcome: Ongoing * Katty Zuniga RN - 03/17/2020 1:29 AM CDT Problem: Pain/Discomfort Goal: Patient exhibits reduced pain/discomfort as evidenced by pain scores Outcome: Ongoing Goal: Patient uses pharmacological and non-pharmacological pain management strategies. Outcome: Ongoing Goal: Patient verbalizes acceptable level of pain relief and ability to engage in desired activity. Outcome: Ongoing Problem: Fall Risk Goal: Fall risk and fall related injury risk are minimized Outcome: Ongoing * Inga Cortez OT - 03/16/2020 2:15 PM CDT [facility] Department of Physical Medicine & Rehabilitation Progress Note Patient: Jalil Luis [facility] Record Number: [id number] Date of : 1970 Age: [age] year old 03/16/20 1030 Missed Visit Missed Visit Refused Patient refused therapy intervention due to Fatigue Pt had a rough morning with learning some difficult and frustrating news. Was very polite and kindly asked to have today to rest and will gladly try again tomorrow. * Amy Anderson, PT - 03/16/2020 11:00 AM CDT [facility] Department of Physical Medicine & Rehabilitation Progress Note Patient: Jalil Luis [facility] Record Number: [id number] Date of : 1970 Age: [age] year old 03/16/20 1100 Missed Visit Missed Visit Refused Patient refused therapy intervention due to Fatigue;RN Notified of Refusal (frustration ) Pt approached for therapy, however declines at this time. Pt expresses frustration at his insurance/social security process and reports he feels overwhelmed with the process while being in the hospital. Therapist calls over to BMT clinic where he has received assistance with SSI paperwork before inhopes that they can answer some more questions for pt. Will continue to follow for PT. * Cassie Wilson RN - 03/16/2020 9:11 AM CDT Problem: Pain/Discomfort Goal: Patient exhibits reduced pain/discomfort as evidenced by pain scores Outcome: Ongoing Goal: Patient uses pharmacological and non-pharmacological pain management strategies. Outcome: Ongoing Goal: Patient verbalizes acceptable level of pain relief and ability to engage in desired activity. Outcome: Ongoing Problem: Fall Risk Goal: Fall risk and fall related injury risk are minimized Outcome: Ongoing Problem: Isolation Goal: Prevent Transmission of Infection Outcome: Ongoing Problem: Isolation Goal: Prevent Transmission of Infection Outcome: Ongoing Problem: Anemia Goal: Patient able to verbalize preventions and signs & symptoms Outcome: Ongoing Problem: Protective Precautions Goal: Patient will remain free of Nosocomial Infections Outcome: Ongoing Problem: Nutrient: Increased nutrient needs (specify) Goal: Total intake will meet estimated nutrient needs Outcome: Ongoing Problem: Skin Integrity Goal: Skin integrity is maintained or improved Outcome: Ongoing Problem: Tobacco Use Goal: Inpatient tobacco-use cessation counseling participation Outcome: Ongoing Problem: Pain/Discomfort Goal: Patient exhibits reduced pain/discomfort as evidenced by pain scores Outcome: Ongoing Goal: Patient uses pharmacological and non-pharmacological pain management strategies. Outcome: Ongoing Goal: Patient verbalizes acceptable level of pain relief and ability to engage in desired activity. Outcome: Ongoing Problem: Fall Risk Goal: Fall risk and fall related injury risk are minimized Outcome: Ongoing Problem: Isolation Goal: Prevent Transmission of Infection Outcome: Ongoing Problem: Isolation Goal: Prevent Transmission of Infection Outcome: Ongoing Problem: Anemia Goal: Patient able to verbalize preventions and signs & symptoms Outcome: Ongoing Problem: Protective Precautions Goal: Patient will remain free of Nosocomial Infections Outcome: Ongoing Problem: Nutrient: Increased nutrient needs (specify) Goal: Total intake will meet estimated nutrient needs Outcome: Ongoing Problem: Skin Integrity Goal: Skin integrity is maintained or improved Outcome: Ongoing Problem: Tobacco Use Goal: Inpatient tobacco-use cessation counseling participation Outcome: Ongoing * Rafaela Sood APRN-SEWING DEMONSTRATOR - 03/16/2020 7:07 AM CDT Autologous Hematopoietic Stem Cell Daily Note: PATIENT IDENTIFIERS: JALIL LUIS is a 49 year old male who is Day +148 (Day 0 is 10/20/19) of an autologous peripheral blood stem cell transplant with a 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 INTERVAL HISTORY: Awake eating breakfast this morning Feels well overall Switches himself back and forth from the CPAP to HFNC States when he works with PT or gets up during the day he feels SOB even with the CPAP on States after resting for awhile he will switch back to the HFNC for meals but then switch back Denies fever, chills Denies N/V/D Having regular BM's Appetite is good, patient reports drinking a lot of fluids ROS: A comprehensive review of systems was negative except for: as noted above MEDICATIONS FOR CURRENT ENCOUNTER: SCHEDULED MEDICATIONS: 0.9% NaCl injection 3 mL, Intracatheter, q8h albuterol HFA (PROVENTIL;VENTOLIN;PROAIR) 108 (90 Base) MCG/ACT inhaler 2 puff, Inhalation, q4h artificial tears ophthalmic ointment, Each Eye, q8h ascorbic acid (VITAMIN C) 3,000 mg in 0.9% NaCl IV IVPB, Intravenous, q6h enoxaparin (LOVENOX) injection 120 mg, Subcutaneous, q12h escitalopram (LEXAPRO) tablet 10 mg, Oral, QDAY methylPREDNISolone sod succ (SOLU-Medrol) injection 20 mg, Intravenous, q6h pantoprazole EC (PROTONIX) tablet 40 mg, Oral, QDAY penicillin V potassium (VEETIDS) solution 250 mg, Oral, q12h rOPINIRole (REQUIP) tablet 0.25 mg, Oral, AT BEDTIME sulfamethoxazole-trimethoprim (BACTRIM DS; SEPTRA DS) 800-160 MG tablet 1 tablet, Oral, MON, WED AND FRI thiamine (VITAMIN B-1) tablet 200 mg, Oral, q12h traMADol (ULTRAM) tablet 50 mg, Oral, q8h valACYclovir (VALTREX) tablet 500 mg, Enteral Tube, BID vitamin D3-cholecalciferol (CHOLECALCIFEROL) 25 MCG (1000 UNITS) tablet 2,000 Units, Oral, QDAY ?? zinc gluconate tablet 50 mg, Oral, QDAY ?? CONTINUOUS MEDICATIONS: PRN MEDICATIONS: 0.9% NaCl injection 1-10 mL, Intracatheter, PRN acetaminophen (TYLENOL) tablet 325 mg, Oral, q4h PRN magnesium sulfate 2 g in 50 mL bolus, Intravenous, PRN ondansetron (disintegrating) (ZOFRAN ODT) tablet 4 mg, Oral, q8h PRN ondansetron (ZOFRAN) injection 4 mg, Intravenous, q8h PRN prochlorperazine (COMPAZINE) injection 10 mg, Intravenous, q6h PRN ?? prochlorperazine (COMPAZINE) tablet 5 mg, Oral, q8h PRN VITALS: Vitals: 03/15/20 1813 03/15/20 2053 03/16/20 0000 03/16/20 0413 BP: 134/88 125/89 125/80 Pulse: 85 80 64 Resp: 20 20 Temp: 97.6 ??F SpO2: 97% 99% 97% 100% Weight: Height: Wt Readings from Last 3 Encounters: 03/11/20 117 kg (257 lb 15 oz) 02/26/20 120.2 kg (265 lb) 11/15/19 123.4 kg (272 lb) Date 03/15/20 07 - 03/16/20 0659 03/16/20 07 - 03/17/20 0659 Shift 1204-5790 8758-4283 24 Hour Total 9701-9772 4352-7082 24 Hour Total INTAKE P.O. 720 720 I.V.(mL/kg/hr) 113.1(0.1) 100(0.1) 213.1(0.1) Shift Total(mL/kg) 833.1(7.1) 100(0.9) 933.1(8) OUTPUT Urine(mL/kg/hr) 1900(1.4) 1800(1.3) 3700(1.3) Shift Total(mL/kg) 1900(16.2) 1800(15.4) 3700(31.6) NET -1066.9 -1700 -2766.9 Weight (kg) 117 117 117 117 117 117 PHYSICAL EXAM: General appearance - alert, well appearing, and in no distress Mental status - alert, oriented to person, place, and time, normal mood, behavior, speech, dress, motor activity, and thought processes Chest - clear to auscultation, no wheezes, [...] lesions noted LABS: Recent Labs Component Name 03/16/20 0045 03/15/20 0027 03/14/20 0023 03/13/20 0013 WBC 17.8* 17.9* 20.8* 21.7* RBC 3.24* 3.09* 3.19* 3.36* HGB 9.3* 8.8* 9.1* 9.7* HCT 27.4* 26.2* 26.8* 28.1* MCV 84.6 84.8 84.0 83.6 MCH 28.7 28.5 28.5 28.9 MCHC 33.9 33.6 34.0 34.5 PLTCOUNT 190 181 215 221 RDWSD 54.3* 54.0* 52.7* 51.4* RDW 18.9* 18.3* 18.0* 17.4* MPV - 13.8* 12.9* 12.5 NRBCABS 0.47* 0.34* 0.19* 0.13* NRBCAUTOPCT 2.6* 1.9* 0.9* 0.6* NEUTPCT 87.3* 89.7* - 92.4* LYMPHSPCT 5.2* 3.1* - 2.7* MONOPCT 3.5 3.3 - 3.1 EOSPCT 0.0 0.1 - 0.0 BASOPCT 0.2 0.1 - 0.1 IMMGRANSPCT 3.8* 3.7* - 1.7* NEUTABS 15.6* 16.0* 20.38* 20.1* LYMPHS 0.9 0.6* 0.21* 0.6* MONO 0.62 0.59 0.21 0.67* EOS 0.00 0.01 - 0.00 BASO 0.03 0.02 - 0.02 TOTCELLCNT - - 100 - Recent Labs Component Name 03/16/204403/15/207 03/14/20 0023 BUN 18 13 21 CREATININE 0.7 0.8 0.6 NA 142 140 142 POTASSIUM 4.6* 4.4 3.9 CL 103 104 105 CO2 28 27 28 CALCIUM 8.2* 7.7* 8.1* PROT 5.2* 5.1* 4.8* ALB 2.1* 1.9* 2.0* TBILI 0.3 0.3 0.4 ALKPHOS 108 114 125 ALT 38 40 49 AST 15 13 16 ANIONGAP 16 13 13 BCR 26* 16 35* OSMOLALITY 298 292 299 AGRATIO 0.7* 0.6* 0.7* EGFR >60 >60 >60 Recent Labs Component Name 03/16/204403/15/207 03/14/20 0023 MAGNESIUM 2.3 1.9 2.4 Recent Labs Component Name 03/16/20 0045 03/15/20 0027 03/14/20 0023 PHOS 3.8 2.6 3.4 Pathology: CD4: see epic 02/26 BMBX (03/03/20): Path- Normocellular marrow with maturing trilineage hematopoiesis. No morphologic evidence of residual/recurrent non-Hodgkin lymphoma. Flow-NISHA Cyto- pending FISH- pending Infectious Workup Covid swap (03/07/20): positive Bronch (03/06/20): COVID +, otherwise negative. Path pending COVID (03/04/20):negative COVID (03/03/20): negative PJP PCR: negative Beta D Glucan: negative Blastomyces: ND Histoplasma blood: negative Histoplasma urine: negative Asperigillus: negative Toxoplasma PCR: negative Bartonella IgG: negative Bartonella IgM: negative Cryptococcus: Negative Urine Legionella: Negative Last BC x2 (03/09): NGTD UA with culture (02/25/20): NGTD RVP (02/25/20): ND Covid swab (02/25/20): negative Covid IgG (02/25/20): Negative RADIOLOGY: PCX (03/05/20): Increase in diffuse patchy airspace opacities in bilateral lungs concerning for multifocal pneumonia. Small left pleural effusion is suggested. There is no pneumothorax. The cardiomediastinal silhouette is Normal Venous Duplex (03/03/20): Negative for DVT CT Chest (03/02/30): 1. Altered distribution of prominent geographic groundglass opacities within the upper and lower lung zones bilaterally. This suggests ongoing inflammatory or infectious process, rather than discrete areas of progressive fibrosis. Areas of groundglass can progress to fibrosis, therefore continued follow-up is advised.2. Re-demonstration of nonocclusive thrombus within the left brachiocephalic vein which extends to the superior vena cava CT C/A/P (02/26/20): 1. Patchy, peripheral predominant groundglass opacities in [...] acute process identified in the abdomen or pelvis ECHO (03/02/20): Limited echo to assess left ventricular function. There is concentric remodeling of the left ventricle. The left ventricle is normal size. Left ventricular segmental wall motion is normal. Left ventricular systolic function is normal with an ejection fraction by Biplane Method of Discs of 68 %. 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 SYSTEMS: Marginal Zone Lymphoma in CR2 pre-transplant Schema: 5A Prep: BEAM, Cell count 10.4 x 10^6 CD34+cells/kg in 5 bags; day [address] A/P -- BMBx completed (03/03) -Transfusion threshold: Hgb > 7; Plt > 10; CMV +, transfusion pre meds: none needed -Engraftment: ANC day +9 (10/29/19); plt engraftment 11/03/19 (day +14) OI prophylaxis: Bacterial:??Pen VK PJP:??Bactrim DS MWF Viral: Valtrex 500mg BID Covid -tested positive early January, asymptomatic at that time -Inflammatory markers Q 48hrs, Last done 03/16 - trending down -Covid from bronch 03/07 and PROVISIONING ANALYST swab 03/07/ came back positive -remdesivir started 03/08 - 03/12 - convalescent plasma, (03/10/20). - Starting MATH + protocol 03/12 - Solumedrol 80 mg once then 20 mg q6hr and vitamins. -Switch steroids to pred starting 03/18 then taper over 6 days Persistent Fevers -Afebrile, last fever 03/09 -BC Q24 when febrile - IgG - 162 , IVIG given - CT C/A/P, results above - ID consult, appreciate recs - Completed 7D course of cem and vanco on 03/08/20 Hypoxia - HFNC at rest and CPAP with activity -intubated 03/06/20 -03/08/20 -pred 90mg (1mg/kg) PO daily for possible BCNU pneumonitis 03/05-03/08/20 and switched to Dex 6mg daily. Dex was d/c 03/12 and the MATH + protocol -Last CT chest 03/02/20, see above -Consult Pulm; Bronch on 03/06/20 Headaches - tramadol 50 mg q8h - Neuro consult >LP completed 03/01. Results negative for meningitis Right IJ venous clot 09/27/19 -on Lovenox 120 mg Q12H while inpt - previously on Eliquis 5 mg BID Pertinent Medical History: Anxiety/Depression- Lexapro 10 mg daily Restless Leg Syndrome - Requip 0.25 mg QHS Discharge Planning: Patients preferred contact information: cell Caregiver: sister, girlfriend Preferred D/C Pharmacy: [email or web address] Intended lodging: home Referring provider: Cesar Tavares Disposition: Remain on 8S Eli Sood APRN, TALENT ACQUISITION OPERATIONS MANAGER-C Bone Marrow Transplant [facility] Associated attestation - Tony Dumont MD - 03/16/2020 9:43 PM CDT I did not examine the patient but discussed with the magy with the BMT MIGUEL and formulated the plan * Hipolito Gillespie RN - 03/15/2020 11:19 PM CDT Problem: Pain/Discomfort Goal: Patient exhibits reduced pain/discomfort as evidenced by pain scores Outcome: Ongoing Problem: Fall Risk Goal: Fall risk and fall related injury risk are minimized Outcome: Ongoing Problem: Isolation Goal: Prevent Transmission of Infection Outcome: Ongoing Problem: Anemia Goal: Patient able to verbalize preventions and signs & symptoms Outcome: Ongoing Problem: Protective Precautions Goal: Patient will remain free of Nosocomial Infections Outcome: Ongoing Problem: Nutrient: Increased nutrient needs (specify) Goal: Total intake will meet estimated nutrient needs Outcome: Ongoing Problem: Skin Integrity Goal: Skin integrity is maintained or improved Outcome: Ongoing Problem: Tobacco Use Goal: Inpatient tobacco-use cessation counseling participation Outcome: Ongoing * Ana Laura Smalls RD/DAE - 03/15/2020 10:34 AM CDT Nutrition Re-Assessment Nutrition Recommendations: Continue regular diet. Encourage adequate PO intakes. Comments: Pt scheduled for reassessment. Pt COVID+, information obtained from EMR. Pt tolerating regular diet, consistently consuming 100% of meals. HFNC at rest and CPAP with activity. Last BM 03/12. No GI issues noted. RD will continue to monitor. Assessment: Med/Surg History and Clinical Diagnoses: Fever, diffuse large B-cell lymphoma, headache, fever in other diseases Diet order accuracy Current diet order: Regular Nutrition recommendation: agree with current nutrition order P.O.Intake for the past 48 hrs:% Meal Taken Av.8 % Min: 75 % Max: 100 % Food Allergies: No known food allergies GI Concerns: None Chewing/Swallowing: None Pain affecting intake: No Admission weight: Weight: 265 lb (120.2 kg) (02/25/20 2356) Filed Wts: 03/02/20 0916 03/09/20 0400 03/10/20 0350 03/11/20 0400 Weight: 267 lb 3.2 oz (121.2 kg) 264 lb 12.4 oz (120.1 kg) 259 lb 14.8 oz (117.9 kg) 257 lb 15 oz (117 kg) Wt Comments: wt stable Height: 5' 7.01 (170.2 cm) IBW/lb (Calculated) Male: 148.048 , Laboratory values reviewed. Medications noted. Skin/Wound: WDL Estimated Energy Needs: KCAL: 3652-4355 (30-35 kcal/kg IBW) Protein (g): 95-110 (1.4-1.6 g/kg IBW) Fluid (ml): 1 ml/kcal Needs based on: (67.3kg) Recommended Access Route: PO Education needed: None Nutrition Care Process (1) Nutrition Diagnostic Statement: Increased nutrient needs related to:: increased demands with critical illness(febrile) as evidenced by:: estimated protein needs ..(2.0-2.5 g/kg IBW) Nutrition Diagnostic Statement Progress: Nutrition problem continues Nutrition Intervention: Meals and snacks:;Medical Food Supplements: Monitoring: PO intakes, appetite, BMs, labs, meds, weight Evaluation: Nutrition Goal: Total intake will meet estimated nutrient needs Nutrition Goal Timeframe: Throughout stay Nutrition Goal Progress: Continue with current goal Ana Laura Smalls RD/DAE [id number] * Cassie Wilson RN - 03/15/2020 9:54 AM CDT Problem: Pain/Discomfort Goal: Patient exhibits reduced pain/discomfort as evidenced by pain scores Outcome: Ongoing Goal: Patient uses pharmacological and non-pharmacological pain management strategies. Outcome: Ongoing Goal: Patient verbalizes acceptable level of pain relief and ability to engage in desired activity. Outcome: Ongoing Problem: Fall Risk Goal: Fall risk and fall related injury risk are minimized Outcome: Ongoing Problem: Isolation Goal: Prevent Transmission of Infection Outcome: Ongoing * Inga Cortez OT - 03/15/2020 8:50 AM CDT [facility] Physical Medicine and Rehabilitation Occupational Therapy Progress Note Patient: Jalil Luis Med Record Number: [id number] Date of : 1970 Age: [age] year old Co-Tx w/ PT Patient is COVID-19 positive. PPE donned by therapist throughout session - disposable gown, gloves, N95 mask, eye protection, faceshield, hair net, alva cover and shoe covers. Discharge Recommendation: Patient will benefit from multidisciplinary inpatient therapies (LTAC) Precautions: FALLS SAFETY *COVID-19 +* Subjective: I need to use the bathroom At start of therapy session, patient found in bed and with no alarm. Pain: Patient has 0 out of 10 pain in body. Nurse notified. Activities of Daily Living Feeding:NT Grooming/Bathing: Stand By Assist --rest breaks necessary Upper Extremity Dressing: not tested Lower Extremity Dressing: Stand By Assist --long sit in bed. Had to lay flat upon completion to recover (see vitals) Toileting/Transfers: Stand By Assist --needed 5-6 min rest after performing two wipes after a BM. Fi02 90%. Mobility: Assist device: none Supine to/from Sit:Independent Sit to/from Stand: Stand By Assist Bed to/from Chair: not tested--bed to toilet Functional Mobility: From bed to toilet with Stand By Assist Splint Issued/Checked: none Splint Check Completed: N/A Balance: Static Sitting: good Dynamic Sitting: good Static Standing: good minus Dynamic Standing: good minus Vitals: Rest BP: 117/77 HR: 90 SpO2 SpO2 98% Room Air L 02 Bipap on CPAP mode 80% Fi02 Ex/Gait/ Activity Without 02 BP: HR: SpO2 Room Air Ex/Gait/ Activity With 02 BP: HR: 136--sitting to don socks 89 94 150--going to bathroom 135 120 150 132 161 120s 120-130s 110-120s SpO2 84% 90%--2 mins supine rest 94%--3 mins total supine rest 70%--increased Fi02 to 90% 80%--about 2 mins on toilet 93%--after 4 mins on toilet at 90% Fi02 79%--after performing esvin care 89%--90% Fi02 87%--after wiping for 3rd and 4th time 96%--after 3 mins rest seated 88%--Fi02 100% for transfer back to bed 99%--1.5 mins in bed w/ HOB raised on 90% Fi02 L 02 SAME EXCEPT Fi02 [id number] Post Activity BP: 148/93 HR: 110-120 SpO2 SpO2 96% L 02 Room Air 80% Fi02 (LEFT ON ORIGINAL SETTING) Observations: Recovering faster but overall endurance is still poor. Needs frequent seated rest breaks. Activity tolerance: poor Cognitive/Perceptual: A&O4; cooperative and follow 100% of commands. No issues in this area. Treatment/Therapeutic Exercise: Treatment session this date focused on ADL training Functional transfer training Endurance training Bed mobility Energy conservation Safety awareness Patient/Family Teaching: Exercise, Gait, Mobility and Self care Equipment Issued: none Update Treatment Plan/Goals : Pt continues to benefit from skilled OT to improve independence with activities of daily living, increase strength, endurance, range of motion and decrease pain. Short Term Goals: Patient will perform grooming?Standing at sink and With modified independence Patient will perform lower extremity dressing?With modified independence Patient will perform toileting?With modified independence ?? Family Nurse Practitioner Goal:Patient to discharge to appropriate next level of inpatient care If patient is discharged from the facility, this note serves as a discharge note if further occupational therapy visits did not occur. Following therapy session, patient left in bed, with call light within reach, with RNCassie aware and with RN/CP rehab cues written on white board. Inga Cortez OT * Amy Anderson, PT - 03/15/2020 8:50 AM CDT [facility] Physical Medicine and Rehabilitation PhysicalTherapy Progress Note ? Patient: Jalil Luis Med Record Number: [id number] Date of : 1970 Age: [age] year old ? Pt is COVID POSITIVE.??PT and OT wear goggles, N95 mask, alva covers, face shield, gown, and gloves during session.??Co Treat with OT due to medical complexity and level of skilled assist required, especially due to vitals status.? Discharge Recommendation:??Patient will benefit from multidisciplinary inpatient therapies. Recommendation changed to LTAC due to current high level of O2 requirement and decreased endurance. ?? Subjective: You guys are killing me, I had a rough night last night. Are you sure we have to? Pt initially reluctant to participate due to fatigue, but agrees and participates well throughout session. ?? Patient currently using no assistive device. Mental Status:??Alert and oriented X4; 100% command follow. Pleasant and cooperative. ?? At start of therapy session, patient found??in bed and with no alarm. ?? Pain: Patient has??0??out of 10 pain reported. No follow up indicated.? Weight Bearing Status:??BLE WBAT? Mobility: ?? Rolling: not tested ?? Supine to Sit:Independent ?? Sit to Supine: Independent ?? Sit to Stand: Independent ?? Bed to Chair: NT ?? Gait: Pt ambulates from EOB to toilet and back, 10ft x2. He is able to complete with SBS no AD with occasional decreased step length and wears BIPAP throughout. He requires increased seated rest break on toilet following initial bout of ambulation with drop in SPO2 and increased HR. Overall pt requires rest break to recover, however able to demo good technique of breathing. ?? Balance: ?? Static Sitting: good ?? Dynamic sitting: good ?? Static Standing: fair plus ?? Dynamic Standing: fair plus ?? Stairs : NT ?? Vitals: Rest BP: 117/77 HR: 90 SpO2 ?? SpO2 98% Room Air ?? L 02 ?? Bipap on CPAP mode 80% Fi02 Ex/Gait/ Activity Without 02 BP: ?? HR: ?? SpO2 ?? Room Air ?? Ex/Gait/ Activity With 02 BP: ?? HR: 136--sitting to don socks 89 ? 94 ?? 150--going to bathroom ?? 135 ? 120 ? 150 ? 132 ?? 161 ? 120s ? 120-130s ? 110-120s SpO2 84% ?? 90%--2 mins supine rest ?? 94%--3 mins total supine rest ?? 70%--increased Fi02 to 90% ?? 80%--about 2 mins on toilet ?? 93%--after 4 mins on toilet at ?? 90% Fi02 ?? 79%--after performing esvin care ?? 89%--90% Fi02 ?? 87%--after wiping for 3rd and 4th time ?? 96%--after 3 mins rest seated ?? 88%--Fi02 100% for transfer back to bed ?? 99%--1.5 mins in bed w/ HOB raised on 90% Fi02 L 02 SAME EXCEPT Fi02 [id number] Post Activity BP: 148/93 HR: 110-120 SpO2 ?? SpO2 96% L 02 ?? Room Air 80% Fi02 (LEFT ON ORIGINAL SETTING) Observations: Pt demos improved ability to recover (time) as compared to previous session, however endurance is still poor. Pt demos good breathing technique with increased SPO2 and calms HR. Pt noted to have highest HR after leaning forward to perform esvin care on toilet. Pt requires seated rest break following this, with O2 recovering more quickly than HR. ? Activity Tolerance: Patient's activity tolerance: poor plus--still limited by O2 response and SOB, however demos improved recovery time.? Treatment/therapeutic Exercise: Pt donns socks from long sitting in bed. He sits up and then standswithout sitting rest break in between. Once standing, pt notes he needs to have BM, so he ambulatesinto bathroom no AD. He sits on toilet to have BM and for seated rest break to recover O2 and HR. He performs pericare himself, requiring increased rest break following this task. At end he stands and ambluates back to bed and returns to bed to rest. ?? Patient/Family Teaching: Exercise, Gait, and Mobility, and breathing technique Patient demonstrated Good understanding of instructions given. ? Short Term Goals: Goal Formation?With patient Patient will perform bed mobility:??Independent (MET 03/15) Patient will transfer sit to/from stand:??Independent (MET 03/15) Patient will transfer bed to/from chair:??Independent (updated 03/15) Patient will ambulate??50??feet with Stand By Assist??and appropriate AD Patient will ascend/descend??10??steps: Stand By Assist??and hand rail assist?? Patient will perform home exercise program independently ?? Family Nurse Practitioner Goal(s): Patient to be independent/baseline with functional mobility and self care and be able to safely discharge to prior level of care ?? Update Treatment Plan: Continue with current PT plan of care to improve safety and functional mobility, especially focusing on progressing standing and gait as able. ?? If patient is discharged from the facility, this note serves as a discharge note if further physical therapy visits did not occur. ?? Following therapy session, patient left in bed with call light within reach, ROSEMARY lowery. ?? 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 INTERVAL HISTORY: Doing well this morning, happy to be out of the ICU On CPAP this morning Reports getting up in the chair during the day Denies N/V/D Having regular BM Headaches have resolved since starting scheduled tramadol Denies fever, chills, chest pain ROS: A comprehensive review of systems was negative except for: as noted above MEDICATIONS FOR CURRENT ENCOUNTER: SCHEDULED MEDICATIONS: 0.9% NaCl injection 3 mL, Intracatheter, q8h albuterol HFA (PROVENTIL;VENTOLIN;PROAIR) 108 (90 Base) MCG/ACT inhaler 2 puff, Inhalation, q4h artificial tears ophthalmic ointment, Each Eye, q8h ascorbic acid (VITAMIN C) 3,000 mg in 0.9% NaCl IV IVPB, Intravenous, q6h enoxaparin (LOVENOX) injection 120 mg, Subcutaneous, q12h escitalopram (LEXAPRO) tablet 10 mg, Oral, QDAY methylPREDNISolone sod succ (SOLU-Medrol) injection 20 mg, Intravenous, q6h pantoprazole EC (PROTONIX) tablet 40 mg, Oral, QDAY penicillin V potassium (VEETIDS) solution 250 mg, Oral, q12h rOPINIRole (REQUIP) tablet 0.25 mg, Oral, AT BEDTIME sulfamethoxazole-trimethoprim (BACTRIM DS; SEPTRA DS) 800-160 MG tablet 1 tablet, Oral, MON, WED AND FRI thiamine (VITAMIN B-1) tablet 200 mg, Oral, q12h traMADol (ULTRAM) tablet 50 mg, Oral, q8h valACYclovir (VALTREX) tablet 500 mg, Enteral Tube, BID vitamin D3-cholecalciferol (CHOLECALCIFEROL) 25 MCG (1000 UNITS) tablet 2,000 Units, Oral, QDAY zinc gluconate tablet 50 mg, Oral, QDAY ?? [COMPLETED] LORazepam (ATIVAN) tablet 0.5 mg, Oral, Once ?? CONTINUOUS MEDICATIONS: PRN MEDICATIONS: 0.9% NaCl injection 1-10 mL, Intracatheter, PRN acetaminophen (TYLENOL) tablet 325 mg, Oral, q4h PRN magnesium sulfate 2 g in 50 mL bolus, Intravenous, PRN ondansetron (disintegrating) (ZOFRAN ODT) tablet 4 mg, Oral, q8h PRN ondansetron (ZOFRAN) injection 4 mg, Intravenous, q8h PRN prochlorperazine (COMPAZINE) injection 10 mg, Intravenous, q6h PRN ?? prochlorperazine (COMPAZINE) tablet 5 mg, Oral, q8h PRN VITALS: Vitals: 03/14/20 2315 03/14/20 2321 03/15/20 0413 03/15/20 0617 BP: 127/82 148/90 Pulse: 86 74 92 Resp: Temp: 97.9 ??F 97.3 ??F SpO2: 99% 96% 99% Weight: Height: Wt Readings from Last 3 Encounters: 03/11/20 117 kg (257 lb 15 oz) 02/26/20 120.2 kg (265 lb) 11/15/19 123.4 kg (272 lb) Date 03/14/20 07 - 03/15/20 0659 03/15/20 07 - 03/16/20 0659 Shift 9368-5746 7849-7255 24 Hour Total 2428-5407 2149-9883 24 Hour Total INTAKE P.O. 1250 1250 I.V.(mL/kg/hr) 588.8(0.4) 588.8(0.2) Shift Total(mL/kg) 1250(10.7) 588.8(5) 1838.8(15.7) OUTPUT Urine(mL/kg/hr) 1800(1.3) 600(0.4) 2400(0.9) Shift Total(mL/kg) 1800(15.4) 600(5.1) 2400(20.5) NET -550 -11.2 -561.2 Weight (kg) 117 117 117 117 117 117 PHYSICAL EXAM: General appearance - alert, well appearing, and in no distress Mental status - alert, oriented to person, place, and time, normal mood, behavior, speech, dress, motor activity, and thought processes Chest - full face cpap on, diminished to auscultation, no wheezes, rales or rhonchi, symmetric air entry Heart - normal rate, regular rhythm, normal S1, S2, no murmurs, rubs, clicks or gallops Abdomen - soft, nontender, nondistended, no masses or organomegaly Musculoskeletal - no joint tenderness, deformity or swelling Extremities - peripheral pulses normal, no pedal edema, no clubbing or cyanosis Skin - normal coloration and turgor, no rashes, no suspicious skin lesions noted [id number], no erythema, no drainage LABS: Recent Labs Component Name 03/15/20 0027 03/14/20 0023 03/13/20 0013 03/10/20 0059 WBC 17.9* 20.8* 21.7* - 17.7* RBC 3.09* 3.19* 3.36* - 3.39* HGB 8.8* 9.1* 9.7* - 9.7* HCT 26.2* 26.8* 28.1* - 28.1* MCV 84.8 84.0 83.6 - 82.9 MCH 28.5 28.5 28.9 - 28.6 MCHC 33.6 34.0 34.5 - 34.5 PLTCOUNT 181 215 221 - 231 RDWSD 54.0* 52.7* 51.4* - 49.1 RDW 18.3* 18.0* 17.4* - 16.7* MPV 13.8* 12.9* 12.5 - 11.4 NRBCABS 0.34* 0.19* 0.13* - 0.09* NRBCAUTOPCT 1.9* 0.9* 0.6* - 0.5* NEUTPCT 89.7* - 92.4* - 92.8* LYMPHSPCT 3.1* - 2.7* - 4.2* MONOPCT 3.3 - 3.1 - 2.2* EOSPCT 0.1 - 0.0 - 0.0 BASOPCT 0.1 - 0.1 - 0.1 IMMGRANSPCT 3.7* - 1.7* - 0.7 NEUTABS 16.0* 20.38* 20.1* - 16.4* LYMPHS 0.6* 0.21* 0.6* - 0.7* MONO 0.59 0.21 0.67* - 0.38 EOS 0.01 - 0.00 - 0.00 BASO 0.02 - 0.02 - 0.02 TOTCELLCNT - 100 - - - - = values in this interval not displayed. Recent Labs Component Name 03/15/20 0027 03/14/20 0023 03/13/20 0013 BUN 13 21 25 CREATININE 0.8 0.6 0.7 NA 140 142 142 POTASSIUM 4.4 3.9 3.9 CL 104 105 105 CO2 27 28 26 CALCIUM 7.7* 8.1* 8.1* PROT 5.1* 4.8* 5.0* ALB 1.9* 2.0* 2.0* TBILI 0.3 0.4 0.3 ALKPHOS 114 125 125 ALT 40 49 58* AST 13 16 23 ANIONGAP 13 13 15 BCR 16 35* 36* OSMOLALITY 292 299 301* AGRATIO 0.6* 0.7* 0.7* EGFR >60 >60 >60 Recent Labs Component Name 03/15/20 0027 03/14/20 0023 03/13/20 0013 MAGNESIUM 1.9 2.4 2.0 Recent Labs Component Name 03/15/20 0027 03/14/20 0023 03/13/20 0013 PHOS 2.6 3.4 3.3 Pathology: CD4: see epic 02/26 BMBX (03/03/20): Path- Normocellular marrow with maturing trilineage hematopoiesis. No morphologic evidence of residual/recurrent non-Hodgkin lymphoma. Flow-INSHA Cyto- pending FISH- pending Infectious Workup Covid swap (03/07/20): positive Bronch (03/06/20): COVID +, otherwise negative. Path pending COVID (03/04/20):negative COVID (03/03/20): negative PJP PCR: negative Beta D Glucan: pending Blastomyces: ND Histoplasma blood: negative Histoplasma urine: negative Asperigillus: negative Toxoplasma PCR: negative Bartonella IgG: negative Bartonella IgM: negative Cryptococcus: Negative Urine Legionella: Negative Last BC x2 (03/09): Pending UA with culture (02/25/20): NGTD RVP (02/25/20): ND Covid swab (02/25/20): negative Covid IgG (02/25/20): Negative RADIOLOGY: PCX (03/05/20): Increase in diffuse patchy airspace opacities in bilateral lungs concerning for multifocal pneumonia. Small left pleural effusion is suggested. There is no pneumothorax. The cardiomediastinal silhouette is Normal Venous Duplex (03/03/20): Negative for DVT CT Chest (03/02/30): 1. Altered distribution of prominent geographic groundglass opacities within the upper and lower lung zones bilaterally. This suggests ongoing inflammatory or infectious process, rather than discrete areas of progressive fibrosis. Areas of groundglass can progress to fibrosis, therefore continued follow-up is advised.2. Re-demonstration of nonocclusive thrombus within the left brachiocephalic vein which extends to the superior vena cava CT C/A/P (02/26/20): 1. Patchy, peripheral predominant groundglass opacities in [...] acute process identified in the abdomen or pelvis ECHO (03/02/20): Limited echo to assess left ventricular function. There is concentric remodeling of the left ventricle. The left ventricle is normal size. Left ventricular segmental wall motion is normal. Left ventricular systolic function is normal with an ejection fraction by Biplane Method of Discs of 68 %. ASSESSMENT/PLAN: JALIL LUIS is a 49 year old male, who is Day +147 (Day 0 is 10/20/19) of an autologous peripheral blood stem cell transplant with a 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 SYSTEMS: Marginal Zone Lymphoma in CR2 pre-transplant Schema: 5A Prep: BEAM, Cell count 10.4 x 10^6 CD34+cells/kg in 5 bags; day [address] A/P -- BMBx completed (03/03) -Transfusion threshold: Hgb > 7; Plt > 10; CMV +, transfusion pre meds: none needed -Engraftment: ANC day +9 (10/29/19); plt engraftment 11/03/19 (day +14) OI prophylaxis: Bacterial:??Hold Pen VK d/t escalation of antibiotics PJP:??Bactrim DS MWF Viral: Valtrex 500mg BID Covid -tested positive early January, asymptomatic at that time -Inflammatory markers Q 48hrs, Last done 03/14 - trending down -Covid from bronch 03/07 and PROVISIONING ANALYST swab 03/07/ came back positive -remdesivir started 03/08 - 03/12 - convalescent plasma, (03/10/20). - Starting MATH + protocol 03/12 - Solumedrol 80 mg once then 20 mg q 6 hours and vitamins. -Switch steroids to pred starting 03/17 then taper over 6 days Persistent Fevers -Afebrile, last fever 03/09 -BC Q24 when febrile - IgG - 162 , IVIG given - CT C/A/P, results above - ID consult, appreciate recs - Completed 7D course of cem and vanco on 03/08/20 Hypoxia - HFNC at rest and CPAP with activity -intubated 03/06/20 -03/08/20 -pred 90mg (1mg/kg) PO daily for possible BCNU pneumonitis 03/05-03/08/20 and switched to Dex 6mg daily. Dex was d/c 03/12 and the MATH + protocol -Last CT chest 03/02/20, see above -03/03 BNP 25 and ECHO (03/03) negative -Consult Pulm; Bronch on 03/06/20 Elevated LFT's -back to baseline -follow closely Headaches - tramadol 50 mg q8h - Neuro consult >LP completed 03/01. Results negative for meningitis Right IJ venous clot 09/27/19 -on Lovenox 120 mg Q12H while inpt - previously on Eliquis 5 mg BID Pertinent Medical History: Anxiety/Depression- Lexapro 10 mg daily Restless Leg Syndrome - Requip 0.25 mg QHS Discharge Planning: Patients preferred contact information: cell Caregiver: sister, girlfriend Preferred D/C Pharmacy: [facility] Intended lodging: home Referring provider: Cesar Tavares Disposition: Remain on 8S Eli Sood APRN, TALENT ACQUISITION OPERATIONS MANAGER-C Bone Marrow Transplant [facility] Associated attestation - Tony Dumont MD - 03/15/2020 1:58 PM CDT I independently interviewed and examined Jalil Luis with the BMT advanced practice provider. I reviewed my findings and assessment with the advanced practice provider and the patient. I reviewed the below note. Please see note for full detail.I agree with the findings and plan of care as documented by the advanced practice provider * Hipolito Gillespie RN - 03/15/2020 2:54 AM CDT Problem: Pain/Discomfort Goal: Patient exhibits reduced pain/discomfort as evidenced by pain scores Outcome: Ongoing Problem: Fall Risk Goal: Fall risk and fall related injury risk are minimized Outcome: Ongoing Problem: Isolation Goal: Prevent Transmission of Infection Outcome: Ongoing Problem: Isolation Goal: Prevent Transmission of Infection Outcome: Ongoing Problem: Anemia Goal: Patient able to verbalize preventions and signs & symptoms Outcome: Ongoing Problem: Skin Integrity Goal: Skin integrity is maintained or improved Outcome: Ongoing * Rod Carpenter RCP - 03/14/2020 11:16 PM CDT Transport Start Time: 2309 Transport Assisted by 1RRT 2RN Transport From: [facility] Transport To: 816 Total Transport Time: 10min Patient transported with HOB @ 30-45 degrees? Yes Rod Carpenter RCP 03/14/20 2315 Noninvasive Ventilation $ Mode $ CPAP Measured Resp Rate 26 Peak Inspiratory Pressure (PIP) Observed 11 cm H2O Estimated Tidal Volume 786 mL Estimated Minute Volume 17.1 L O2 % (FiO2) 80 % SpO2 99 % Pulse 86 Total Leak (L/Min) 24 Tolerance Well Position Semi-Fowlers High Pressure alarm 20 Low Pressure alarm 2 Apnea alarm 20 Mask/Prong Care Mask/Prongs Type FFM Skin Condition around mask/prongs Intact Preventative Measures Saline Gel (BS/19) Safety & Alarms Transport? Yes;Unit to Unit Patient Verification Patient Identified: By Identification Arm Band * Linda Roach RN - 03/14/2020 10:36 PM CDT Report called to Dieter on , all questions answered. Will transport patient with telemetry box active. * Arnold Cutler DO - 03/14/2020 6:10 PM CDT Attending, , is in agreement that patient is safe to be transferred out of the ICU to the floor from the respiratory standpoint. BMT has accepted the patient, confirmed with BMT attending this AM. Associated attestation - John Garcia MD - 03/17/2020 7:13 PM CDT I was indeed agreeable. John Garcia MD [facility] Division Pulmonary/Critical Care/Sleep Medicine Pager: [phone] * Inga Cortez, OT - 03/14/2020 4:00 PM CDT [facility] Physical Medicine and Rehabilitation Occupational Therapy Progress Note Patient: Jalil Luis [facility] Record Number: [id number] Date of : 1970 Age: [age] year old Co-tx w/ PT Patient is COVID-19 positive. PPE donned by therapist throughout session - disposable gown, gloves, N95 mask, eye protection, faceshield, hair net, alva cover and shoe covers. Discharge Recommendation: Patient will benefit from multidisciplinary inpatient therapies (LTAC--> REC HAS BEEN CHANGED IN ORDER TO BEST REPRESENT HIS CURRENT 02 AND ENDURANCE NEEDS) Precautions: FALLS SAFETY *COVID-19+* Subjective: I feel okay At start of therapy session, patient found in bed and with no alarm. Pain: Patient has 0 out of 10 pain in body. Nurse notified. Activities of Daily Living Feeding:NT Grooming/Bathing: not tested --intact hand to mouth Upper Extremity Dressing: not tested Lower Extremity Dressing: Stand By Assist --in bed in long sit. Did desat, but recovered faster today on Bipap vs HFNC (which is what he was on for socks yesterday) Toileting/Transfers: not tested --has been using urinal. No need to go at this time Mobility: Assist device: none Supine to/from Sit:Independent Sit to/from Stand: Independent Bed to/from Chair: SBA Functional Mobility: From bed to chair with Stand By Assist--no seated rest break in between (firsttime) Splint Issued/Checked: none Splint Check Completed: N/A Balance: Static Sitting: good Dynamic Sitting: good Static Standing: good minus Dynamic Standing: good minus Vitals: (*Assess the 3 levels of oxygen saturations both for room air and 02 unless rest on room air is 88% or less). Rest BP: 127/79 HR: 96 ?? 103 Sp02 ?? Sp02 100% ?? 94% Room Air ?? L O2 ?? BIPAP on CPAP 10 mode and 90% O2 Ex/Gait/Activity Without 02 BP: ?? HR: ?? Sp02 ?? Room Air ?? Ex/Gait/Activity With 02 BP: ?? HR: 106-117 Donning socks long sitting ?? 88 after 3-4 min rest ?? 126 transfer to chair ?? 107-117 after 4-5 minutes rest ? 105 after 6-7 mins rest ?? 144 standing (about 2 mins) ?? 128 (post stand, back in chair) ? 110 ? 111 ? Sp02 88-91% ? 97% ?? 81% (RR 24) ?? 85-90% (RR 15-17) ?? 93-95% (RR 15-18) 87% (RR 28-38) 83% (lowest after sitting in chair) 93% (after 2-3 mins sitting in chair) ?? 95% ? L O2 BIPAP on CPAP 10 mode and 90% O2 Post Activity BP: 116/89 HR: 105 Sp02 ?? Sp02 94% L O2 ?? Room Air BIPAP on CPAP 10 mode and 90% O2 Observations: Pt on BIPAP machine on CPAP mode throughout session. Pt demos good ability of slowingbreathing rate, HR, and demonstrating deep breaths using Andres Chi breathing method. Pt requires restbreaks following activity, but is able to recover with less time and with less drop in SPO2 as compared to previous sessions (yesterday was on High flow). Activity tolerance: poor to poor plus--is doing better on Bipap (in CPAP setting) vs HFNC Cognitive/Perceptual: A&Ox4; pt is cooperative, pleasant, and follows 100% of commands. Not impulsive and GOOD insight into current needs. Treatment/Therapeutic Exercise: Treatment session this date focused on ADL training Functional transfer training Endurance training Bed mobility Energy conservation HEP training Patient/Family Teaching: Exercise, Gait, Mobility and Self care Equipment Issued: none Update Treatment Plan/Goals : Pt continues to benefit from skilled OT to improve independence with activities of daily living, increase strength, endurance, range of motion and decrease pain. Short Term Goals: Patient will perform grooming?Standing at sink and With modified independence Patient will perform lower extremity dressing?With modified independence Patient will perform toileting?With modified independence Family Nurse Practitioner Goal:Patient to discharge to appropriate next level of inpatient care If patient is discharged from the facility, this note serves as a discharge note if further occupational therapy visits did not occur. Following therapy session, patient left in patient bedside chair, with call light within reach, with RNAmy aware and with RN/CP rehab cues written on white board. Inga Cortez OT * Keli Case APRN-ERIKA - 03/14/2020 1:04 PM CDT Autologous Hematopoietic Stem Cell Daily Note: PATIENT IDENTIFIERS: JALIL LUIS is a 49 year old male who is Day +146 (Day 0 is 10/20/19) of an autologous peripheral blood stem cell transplant with a 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 INTERVAL HISTORY: Mindy care is being managed by the MICU team The BMT team met with the MICU team during rounds to discuss care Pt SAT's are in the high 90's to 100% on CPAP On the MATH+ protocol, inflammatory markers continue to improve LFT's back to baseline, WBC slightly trending down. IgG level of 162, will receive 35g of IVIG Based on current improvement, will likely be transferred from the ICU in a day or so. ROS: A comprehensive review of systems was negative except for: as noted above MEDICATIONS FOR CURRENT ENCOUNTER: SCHEDULED MEDICATIONS: 0.9% NaCl injection 3 mL, Intracatheter, q8h albuterol HFA (PROVENTIL;VENTOLIN;PROAIR) 108 (90 Base) MCG/ACT inhaler 2 puff, Inhalation, q4h artificial tears ophthalmic ointment, Each Eye, q8h ascorbic acid (VITAMIN C) 3,000 mg in 0.9% NaCl IV IVPB, Intravenous, q6h enoxaparin (LOVENOX) injection 120 mg, Subcutaneous, q12h escitalopram (LEXAPRO) tablet 10 mg, Oral, QDAY methylPREDNISolone sod succ (SOLU-Medrol) injection 20 mg, Intravenous, q6h pantoprazole EC (PROTONIX) tablet 40 mg, Oral, QDAY penicillin V potassium (VEETIDS) solution 250 mg, Oral, q12h rOPINIRole (REQUIP) tablet 0.25 mg, Oral, AT BEDTIME sulfamethoxazole-trimethoprim (BACTRIM DS; SEPTRA DS) 800-160 MG tablet 1 tablet, Oral, MON, WED AND FRI thiamine (VITAMIN B-1) tablet 200 mg, Oral, q12h traMADol (ULTRAM) tablet 50 mg, Oral, q8h valACYclovir (VALTREX) tablet 500 mg, Enteral Tube, BID vitamin D3-cholecalciferol (CHOLECALCIFEROL) 25 MCG (1000 UNITS) tablet 2,000 Units, Oral, QDAY ?? zinc gluconate tablet 50 mg, Oral, QDAY CONTINUOUS MEDICATIONS: Followed by Followed by immune globulin (GAMUNEX-C) 10 % 10 g, Intravenous, Continuous immune globulin (GAMUNEX-C) 10 % 20 g, Intravenous, Continuous ?? immune globulin (GAMUNEX-C) 10 % 5 g, Intravenous, Continuous PRN MEDICATIONS: 0.9% NaCl injection 1-10 mL, Intracatheter, PRN acetaminophen (TYLENOL) tablet 325 mg, Oral, q4h PRN magnesium sulfate 2 g in 50 mL bolus, Intravenous, PRN ondansetron (disintegrating) (ZOFRAN ODT) tablet 4 mg, Oral, q8h PRN ondansetron (ZOFRAN) injection 4 mg, Intravenous, q8h PRN prochlorperazine (COMPAZINE) injection 10 mg, Intravenous, q6h PRN ?? prochlorperazine (COMPAZINE) tablet 5 mg, Oral, q8h PRN VITALS: Vitals: 03/14/20 1000 03/14/20 1100 03/14/20 1119 03/14/20 1200 BP: 126/79 116/89 118/86 Pulse: 90 (!) 111 (!) 116 Resp: Temp: 98 ??F 98.8 ??F SpO2: 98% 93% 97% 95% Weight: Height: Wt Readings from Last 3 Encounters: 03/11/20 117 kg (257 lb 15 oz) 02/26/20 120.2 kg (265 lb) 11/15/19 123.4 kg (272 lb) Date 03/13/20 07 - 03/14/20 0659 03/14/20 07 - 03/15/20 0659 Shift 5306-4701 5617-6869 24 Hour Total 3576-0264 5075-6660 24 Hour Total INTAKE P.O. 1750 1300 3050 750 750 I.V.(mL/kg/hr) 195.1(0.1) 199.1(0.1) 394.3(0.1) Shift Total(mL/kg) 1945.1(16.6) 1499.1(12.8) 3444.3(29.4) 750(6.4) 750(6.4) OUTPUT Urine(mL/kg/hr) 900(0.6) 1000(0.7) 1900(0.7) 1000 1000 Shift Total(mL/kg) 900(7.7) 1000(8.5) 1900(16.2) 1000(8.5) 1000(8.5) NET 1045.1 499.1 1544.3 -250 -250 Weight (kg) 117 117 117 117 117 117 PHYSICAL EXAM: Examined by the MICU attending. LABS: Recent Labs Component Name 03/14/20 0023 03/13/20 0013 03/12/20 0036 03/10/20 0059 03/09/20 0045 WBC 20.8* 21.7* 14.3* - 17.7* 16.8* RBC 3.19* 3.36* 3.71* - 3.39* 3.34* HGB 9.1* 9.7* 10.5* - 9.7* 9.7* HCT 26.8* 28.1* 30.7* - 28.1* 28.1* MCV 84.0 83.6 82.7 - 82.9 84.1 MCH 28.5 28.9 28.3 - 28.6 29.0 MCHC 34.0 34.5 34.2 - 34.5 34.5 PLTCOUNT 215 221 252 - 231 268 RDWSD 52.7* 51.4* 49.8 - 49.1 51.3* RDW 18.0* 17.4* 17.2* - 16.7* 17.2* MPV 12.9* 12.5 12.5 - 11.4 12.8 NRBCABS 0.19* 0.13* 0.06* - 0.09* 0.15* NRBCAUTOPCT 0.9* 0.6* 0.4* - 0.5* 0.9* NEUTPCT - 92.4* - - 92.8* 85.1* LYMPHSPCT - 2.7* - - 4.2* 11.2* MONOPCT - 3.1 - - 2.2* 2.6* EOSPCT - 0.0 - - 0.0 0.0 BASOPCT - 0.1 - - 0.1 0.1 IMMGRANSPCT - 1.7* - - 0.7 1.0 NEUTABS 20.38* 20.1* 13.73* - 16.4* 14.3* LYMPHS 0.21* 0.6* 0.43* - 0.7* 1.9 MONO 0.21 0.67* 0.14 - 0.38 0.44 EOS - 0.00 - - 0.00 0.00 BASO - 0.02 - - 0.02 0.01 TOTCELLCNT 100 - 100 - - - - = values in this interval not displayed. Recent Labs Component Name 03/14/20 0023 03/13/20 0013 03/12/20 0036 BUN 21 25 25 CREATININE 0.6 0.7 0.8 NA 142 142 138 POTASSIUM 3.9 3.9 4.4 CL 105 105 102 CO2 28 26 26 CALCIUM 8.1* 8.1* 8.9 PROT 4.8* 5.0* 5.8* ALB 2.0* 2.0* 2.1* TBILI 0.4 0.3 0.5 ALKPHOS 125 125 147 ALT 49 58* 68* AST 16 23 22 ANIONGAP 13 15 14 BCR 35* 36* 31* OSMOLALITY 299 301* 292 AGRATIO 0.7* 0.7* 0.6* EGFR >60 >60 >60 Recent Labs Component Name 03/14/20 0023 03/13/20 0013 03/12/20 0036 MAGNESIUM 2.4 2.0 2.3 Recent Labs Component Name 03/14/20 0023 03/13/20 0013 03/12/20 0036 PHOS 3.4 3.3 3.6 Pathology: CD4: see epic 02/26 BMBX (03/03/20): Path- Normocellular marrow with maturing trilineage hematopoiesis. No morphologic evidence of residual/recurrent non-Hodgkin lymphoma. Flow-NISHA Cyto- pending FISH- pending Infectious Workup Covid swap (03/07/20): positive Bronch (03/06/20): COVID +, otherwise negative. Path pending COVID (03/04/20):negative COVID (03/03/20): negative PJP PCR: negative Beta D Glucan: pending Blastomyces: ND Histoplasma blood: negative Histoplasma urine: negative Asperigillus: negative Toxoplasma PCR: negative Bartonella IgG: negative Bartonella IgM: negative Cryptococcus: Negative Urine Legionella: Negative Last BC x2 (03/09): Pending UA with culture (02/25/20): NGTD RVP (02/25/20): ND Covid swab (02/25/20): negative Covid IgG (02/25/20): Negative RADIOLOGY: PCX (03/05/20): Increase in diffuse patchy airspace opacities in bilateral lungs concerning for multifocal pneumonia. Small left pleural effusion is suggested. There is no pneumothorax. The cardiomediastinal silhouette is Normal Venous Duplex (03/03/20): Negative for DVT CT Chest (03/02/30): 1. Altered distribution of prominent geographic groundglass opacities within the upper and lower lung zones bilaterally. This suggests ongoing inflammatory or infectious process, rather than discrete areas of progressive fibrosis. Areas of groundglass can progress to fibrosis, therefore continued follow-up is advised.2. Re-demonstration of nonocclusive thrombus within the left brachiocephalic vein which extends to the superior vena cava CT C/A/P (02/26/20): 1. Patchy, peripheral predominant groundglass opacities in [...] acute process identified in the abdomen or pelvis ECHO (03/02/20): Limited echo to assess left ventricular function. There is concentric remodeling of the left ventricle. The left ventricle is normal size. Left ventricular segmental wall motion is normal. Left ventricular systolic function is normal with an ejection fraction by Biplane Method of Discs of 68 %. ASSESSMENT/PLAN: JALIL LUIS is a 49 year old male, who is Day +145 (Day 0 is 10/20/19) of an autologous peripheral blood stem cell transplant with a 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 SYSTEMS: Marginal Zone Lymphoma in CR2 pre-transplant Schema: 5A Prep: BEAM, Cell count 10.4 x 10^6 CD34+cells/kg in 5 bags; day [address] A/P -- BMBx completed (03/03) -Transfusion threshold: Hgb > 7; Plt > 10; CMV +, transfusion pre meds: none needed -Engraftment: ANC day +9 (10/29/19); plt engraftment 11/03/19 (day +14) OI prophylaxis: Bacterial:??Hold Pen VK d/t escalation of antibiotics PJP:??Bactrim DS MWF Viral: Valtrex 500mg BID Covid -tested positive early January, asymptomatic at that time -Inflammatory markers Q 48hrs, Last done 03/14 - trending down -Covid from bronch 03/07 and PROVISIONING ANALYST swab 03/07/ came back positive -remdesivir started 03/08 - 03/12 - convalescent plasma, (03/10/20). - Starting MATH + protocol 03/12 - Solumedrol 80 mg once then 20 mg q 6 hours and vitamins>>appreciate MICU progress note Persistent Fevers -Afebrile, last fever 03/09 -BC Q24 when febrile - IgG - 162 , IVIG given - CT C/A/P, results above - ID consult, appreciate recs - Completed 7D course of cem and vanco on 03/08/20 Hypoxia - HFNC at rest and CPAP with activity -intubated 03/06/20 -03/08/20 -pred 90mg (1mg/kg) PO daily for possible BCNU pneumonitis 03/05-03/08/20 and switched to Dex 6mg daily. Dex was d/c 03/12 and the MATH + protocol -Last CT chest 03/02/20, see above -03/03 BNP 25 and ECHO (03/03) negative -Consult Pulm; Bronch on 03/06/20 Elevated LFT's -back to baseline -follow closely Headaches - tramadol 50 mg q8h - Neuro consult >LP completed 03/01. Results negative for meningitis Right IJ venous clot 09/27/19 -on Lovenox 120 mg Q12H while inpt - previously on Eliquis 5 mg BID Pertinent Medical History: Anxiety/Depression- Lexapro 10 mg daily Restless Leg Syndrome - Requip 0.25 mg QHS Discharge Planning: Patients preferred contact information: cell Caregiver: sister, girlfriend Preferred D/C Pharmacy: [facility] Intended lodging: home Referring provider: Cesar Tavares Disposition: Remain on 6ICU Keli Evie, AGNP-BC Blood and Marrow Transplant [facility] Associated attestation - Tony Dumont MD - 03/14/2020 3:55 PM CDT I independently interviewed and examined Jalil Luis with the BMT advanced practice provider. I reviewed my findings and assessment with the advanced practice provider and the patient. I reviewed the below note. Please see note for full detail.I agree with the findings and plan of care as documented by the advanced practice provider * Anali Avery MD - 03/14/2020 12:22 PM CDT CCU PROGRESS NOTE Name: Jalil Luis Admit Date and Time: 02/25/2020 9:41 PM LOS: LOS: 18 days Rm/Bed: 641/641- Hospital Day: 18 BRIEF HOSPITAL COURSE: per Joe Dennison MD 49 year oldmale [facility] 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 Recent SARS-CoV-2 (+) in the beginning of January as a routine check up. Progressively short of breath and fever 2-3 weeks later and admitted to the hospital 02/24??with complaints of low grade fevers, moderate to severe headache, photophobia, and neck pain x2 weeks. LP on 03/01 with negative findings. On March 04, febrile >102, transitioned to??HFNC 40L CT chest noted worsening GGO s/p vanc, cefepime. ?? Patient underwent bronchoscopy with BAL, brushing, transbronchial biopsy, sent bacterial, fungal, viral, PJP, COVID 19, cell counts, cytology. Started on prednisone per BMT service. Patient was intubated in the bronch suite an transferred to the MICU. COVID+ from bronch. Pt was extubated 03/08 and agreed to Remdesivir however did not want convalescent plasma. Predinisone was discontinued and started on dexamethasone 6mg q24h PO. Vanc and Meropenem were discontinued and ampicillin VK started sinceasplenic. Convalescent plasma started 03/10. Math+Protocol(COVID protocol) started 03/11. SUBJECTIVE INTERVAL HISTORY: Patient has been afebrile since 03/09 after having fevers for 5-6 weeks which were attributed to his COVID infection. Patient on CPAP with 80% FiO2, pt has been more comfortable and willing to do therapy on cPAP. Completed Remdesivir and convalescent plasma, tolerated both well. Continuing Math+ protocol. Per BMT IgG levels low and will receive some IgG today. Otherwise patient is hemodynamically stableenough to move to the BMT floor service. OBJECTIVE Temp: [96.9 ??F (36.1 ??C)-98.9 ??F (37.2 ??C)] 97.6 ??F (36.4 ??C) Pulse: [57-111] 111 Resp: [13-31] 26 BP: (109-136)/(64-89) 116/89 O2 %: [80 %-100 %] 90 % Intake/Output Summary (Last 24 hours) at 03/14/2020 1222 Last data filed at 03/14/2020 1100 Gross per 24 hour Intake 3348.03 ml Output 1500 ml Net 1848.03 ml Date 03/13/20 07 - 03/14/20 0659 03/14/20 07 - 03/15/20 0659 Shift 9958-3250 4224-1811 24 Hour Total 7367-5663 2112-9347 24 Hour Total INTAKE P.O. 1750 1300 3050 750 750 I.V.(mL/kg/hr) 195.1(0.1) 199.1(0.1) 394.3(0.1) Shift Total(mL/kg) 1945.1(16.6) 1499.1(12.8) 3444.3(29.4) 750(6.4) 750(6.4) OUTPUT Urine(mL/kg/hr) 900(0.6) 1000(0.7) 1900(0.7) Shift Total(mL/kg) 900(7.7) 1000(8.5) 1900(16.2) NET 1045.1 499.1 1544.3 750 750 Weight (kg) 117 117 117 117 117 117 Physical Exam: Dr. Garcia examined Labs CBC: Recent Labs Component Name 03/14/202203/13/201203/12/20 0036 WBC 20.8* 21.7* 14.3* HGB 9.1* 9.7* 10.5* BMP: Recent Labs Component Name 03/14/202203/13/20 0013 03/12/20 0036 NA 142 142 138 CL 105 105 102 CO2 28 26 26 BUN 21 25 25 CREATININE 0.6 0.7 0.8 Recent Labs Component Name 03/14/202203/13/20 0013 03/12/20 0036 CALCIUM 8.1* 8.1* 8.9 PHOS 3.4 3.3 3.6 LFT: Recent Labs Component Name 03/14/20 0023 03/13/20 0013 03/12/20 0036 PROT 4.8* 5.0* 5.8* ALB 2.0* 2.0* 2.1* ALKPHOS 125 125 147 AST 16 23 22 ALT 49 58* 68* Coagulation: Recent Labs Component Name 03/06/20 1816 02/27/20 2349 02/27/20 0411 09/09/19 1242 PT 14.7 14.2 16.2* 12.9 INR 1.2 1.1 1.3 1.0 PTT 26.0 - 37.9 27.4 Cardiac markers: Recent Labs Component Name 03/03/20 1247 TROPONINI <0.010 ASSESSMENT & PLAN Neurological JUSTIN - Monitor mental status every hour and notify MD if any changes - Fall precautions, Seizure precautions, HOB elevated Cardiovascular: JUSTIN Pulmonary: #AHRF #Hx of COVID (+) #B/l pulmonary infiltrates DDx: Infection, inflammation, medication induced pneumonitis. COVID+ still, Unsure if this acute infx vs residual genetic material from initial infection. We discontinued vanc and cem however due to his immunocompromised status and asplenic started him on ampicillin VK 03/09 for pneumococcal ppx.?? Plan: - continue Math+ protocol. - SARS COVID w/ positive results 03/06 and 03/07. - bacterial, fungal, viral, PJP, COVID 19, cell counts, cytology all normal or negative results. -completed Remdesivir and convalescent plasma -HFNC 100 FiO2, 65L flow rate, CPAP when doing PT -Math+ Protocol( usually follow for ~7 days ) was started 03/11 --thiamine, ascorbic acid, louie D, zinc, ---1 x 80mg methylprednisolone, ---03/11 1800 started 20mg methyprednisolone q6h(last dose 03/17 1800), then transition to prednisone taper of 6 days ---check CRP qDaily -----> BMt rec IgG today(03/14) #OI PPx Bacterial held in setting of concerns for septicemia - PJP: Bactrim DS MWF - Viral: Valtrex 500mg BID - Titrate Fi O2 to the lowest needed to keep Sats > 88% - Keep HOP elevated 30 degrees, oral care, aspiration precautions GI: JUSTIN Renal: JUSTIN Electrolytes: Monitor chem 7 and Mg every 24 hours and replace Mg if less than1.8 or if K < 3.5 Endocrine: JUSTIN Monitor accucheck every 4 hours and use sliding scale to keep between glucose between 140 - 180 I.D.: #Fevers, resolved Probable COVID, still covering broadly at this time. Repeat COVID pending as there may be componentof material vs acute COVID. -BM results normal cellularity, bacterial, fungal or viral all negative both in sputum and blood - Tylenol prn. 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 BMT on board to help guide management. ?? #Hx of RIJ clot - home eliquis held, on lovenox 120mg BID.?? Transfusion Protocol: Hb < 7, Plt < 10 Musculoskeletal #Pain -tramadol q8h Lines: PIV, ETT Tube Prophylaxis: DVT prophylaxis:Lovenox 120mg BID GI prophylaxis: protonix Aspiration precautions with elevation of HOB by 30 degrees. Fluids: none Diet: Advance as tolerated Activity: Ad Kristi Disposition: ICU Monitoring Code: Full Code Please note, recommendations are not final until attested/co-signed by the attending physician. 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 First COVID positive in early January Home meds being held: none Intubation/NIPPV days: Intubated /-03/08 Pressor agents and days: none ABx indications: PNA, asplenic Consult teams past and present: BMT, Pulmonary, Transplant ID Pending work up: none Things to watch: O2 requirements To address prior to d/c: none To address at d/c (f/u etc): Anali Avery MD PGY-1, Intensive Care Service 03/14/20 12:22 PM Associated attestation - John Garcia MD - 03/17/2020 7:14 PM CDT I have personally seen and examined the patient and reviewed the pertinent data. I have independently formulated a treatment plan. The treatment plan was discussed/conveyed with/to the MICU Team/Pulmonary Consult Team to execute the care plan. If written, please see my note for additional details, but if an independent note is not written, then I agree with the details of the attached note. OK to send to floor on CPAP. He can adjust it, take it off and switch to HFNC as needed for his comfort. John Garcia MD Dispatcher [facility] Division Pulmonary/Critical Care/Sleep Medicine Pager: [phone] * Amy Anderson, PT - 03/14/2020 10:15 AM CDT [facility] Physical Medicine and Rehabilitation PhysicalTherapy Progress Note Patient: Jalil Luis Med Record Number: [id number] Date of : 1970 Age: [age] year old Pt is COVID POSITIVE.??PT and OT wear goggles, N95 mask, alva covers, face shield, gown, and gloves during session. Co Treat with OT due to medical complexity and level of skilled assist required, especially due to vitals status. ?? Discharge Recommendation:??Patient should be able to return home when medically cleared by physician team. Therapy will continue to treat patient while in hospital. See current amount of assist needed below. Subjective: I have 28 grandchildren Patient currently using no assistive device. Mental Status:??Alert and oriented X4; 100% command follow? At start of therapy session, patient found??in bed and with no alarm. ?? Pain: Patient has??0??out of 10 pain reported. No follow up indicated.? Weight Bearing Status:??BLE WBAT?? Mobility: Rolling: not tested Supine to Sit:Independent Sit to Supine: not tested Sit to Stand:Stand By Assist Bed to Chair: Stand By Assist Gait: Pt able to take steps to chair, however not ambulatory at this time due to O2 status. Will continueto attempt to progress as O2 allows. Balance: Static Sitting: good Dynamic sitting: good Static Standing: fair plus Dynamic Standing: fair plus Stairs : NT Vitals: (*Assess the 3 levels of oxygen saturations both for room air and 02 unless rest on room air is 88% or less). Rest BP: 127/79 HR: 96 103 Sp02 Sp02 100% 94% Room Air L O2 BIPAP on CPAP 10 mode and 90% O2 Ex/Gait/Activity Without 02 BP: HR: Sp02 Room Air Ex/Gait/Activity With 02 BP: HR: 106-117 Donning socks long sitting 88 after 3-4 min rest 126 transfer to chair 107-117 after 4-5 minutes rest 105 after 6-7 mins rest 144 standing (about 2 mins) 128 (post stand, back in chair) 110 111 Sp02 88-91% 97% 81% (RR 24) 85-90% (RR 15-17) 93-95% (RR 15-18) 87% (RR 28-38) 83% (lowest after sitting in chair) 93% (after 2-3 mins sitting in chair) 95% L O2 BIPAP on CPAP 10 mode and 90% O2 Post Activity BP: 116/89 HR: 105 Sp02 Sp02 94% L O2 Room Air BIPAP on CPAP 10 mode and 90% O2 Observations: Pt on BIPAP machine on CPAP mode throughout session. Pt demos good ability of slowingbreathing rate, HR, and demonstrating deep breaths using TaiChi breathing method. Pt requires rest breaks following activity, but is able to recover with less time and with less drop in SPO2 as compared to previous sessions (yesterday was on High flow). Activity Tolerance: Patient's activity tolerance: poor plus to fair minus--demos improved tolerance to activity on BIPAP as compared to HighFlow. Treatment/therapeutic Exercise: Pt donns socks from long sitting in bed. Then he sits up on side ofbed and transfers to chair without rest break in between. Pt takes seated rest break in chair, [id number] to drop less as compared to when on HFNC (yesterday) and pt recovers more quickly. Pt stands for at least [address] before needing sitting break. He performs good breathing technique and recovers with rest. Patient/Family Teaching: Exercise and Mobility Patient demonstrated Good understanding of instructions given. Short Term Goals: Goal Formation?With patient Patient will perform bed mobility:??Independent Patient will transfer sit to/from stand:??Independent (updated) Patient will transfer bed to/from chair:??Stand By Assist Patient will ambulate??50??feet with Stand By Assist??and appropriate AD Patient will ascend/descend??10??steps: Stand By Assist??and hand rail assist?? Patient will perform home exercise program independently ?? Residential Goal(s): Patient to be independent/baseline with functional mobility and self care and be able to safely discharge to prior level of care Update Treatment Plan: Continue with current PT plan of care to improve safety and functional mobility, especially focusing on progressing standing and gait as able. If patient is discharged from the facility, this note serves as a discharge note if further physical therapy visits did not occur. Following therapy session, patient left in patient bedside chair, with call light within reach and with Amy RILEY aware. Amy Anderson, RENUKA 03/14/2020 * Amy Braon RN - 03/14/2020 9:51 AM CDT Will assess pain Q2H and within 1 hour of intervention. * Sharon Bragg - 03/13/2020 2:06 PM CDT Maintenance Service Dispatcher followed up on this patient visited on previous admission for stem cell transplant. Nurse indicated patient is now off the breathing tube. Per nurse, patient has his cell phone at bedside. Maintenance Service Dispatcher called patient on his cell phone and visited briefly. Patient indicated he believes he is getting better. Per patient, he is still in contact with his evangelical and feels very supported by them and his wendy as well as support he is receiving from his fiance'. Maintenance Service Dispatcher assured patient of ongoing prayer support and availability as needed. Plan: Continue to provide pastoral care and support, visiting weekly or as requested. Page ChaplainCarol #[phone] or net developer contract recreation instructor #[id number] as needed. [phone] * Joce Damian DO - 03/13/2020 11:49 AM CDT Date of Admission: 02/25/2020 LOS: 17 HPI: Since last seen by us, patient continues to require high flow Has remained afebrile WBC increased, 21.7 No diarrhea Review of Systems: Unable to obtain 2/2 COVID19 protocol Allergies: Allergies Allergen Reactions ??? Adhesive Sensitivity Urticaria and Other Electrodes -- welps where stickers are Also, use paper tape Current Hospital Medications: Current Facility-Administered Medications Medication Dose Route Frequency Provider Last Rate Last Dose ??? 0.9% NaCl injection 3 mL 3 mL Intracatheter q8h Joe Dennison MD 3 mL at 03/13/20 0648 And ??? 0.9% NaCl injection 1-10 mL 1-10 mL Intracatheter PRN Joe Dennison MD ??? acetaminophen (TYLENOL) tablet 325 mg 325 mg Oral q4h PRN Kenneth Martins MD 325 mg at 03/09/20 2116 ??? albuterol HFA (PROVENTIL;VENTOLIN;PROAIR) 108 (90 Base) MCG/ACT inhaler 2 puff 2 puff Inhalation q4h Evie, Keli, TRANSCRIBING OPERATOR HEAD-SEWING DEMONSTRATOR 2 puff at 03/13/20 1130 ??? artificial tears ophthalmic ointment Each Eye q8h Joe Dennison MD ??? ascorbic acid (VITAMIN C) 3,000 mg in 0.9% NaCl IV IVPB 3,000 mg Intravenous q6h Joe Dennison MD 100 mL/hr at 03/13/20 1134 3,000 mg at 03/13/20 1134 ??? enoxaparin (LOVENOX) injection 120 mg 120 mg Subcutaneous q12h Joe Dennison MD 120 mg at 03/13/20 0810 ??? EPINEPHrine 1 mg/ml injection ADS Med ??? escitalopram (LEXAPRO) tablet 10 mg 10 mg Oral QDAY Anali Avery MD 10 mg at 03/13/20 0810 ??? lidocaine (XYLOCAINE) 2% injection ADS Med ??? lidocaine (XYLOCAINE) 2% viscous solution ADS Med ??? magnesium sulfate 2 g in 50 mL bolus 2 g Intravenous PRN Rafaela Sood, TRANSCRIBING OPERATOR HEAD-SEWING DEMONSTRATOR ??? methylPREDNISolone sod succ (SOLU-Medrol) injection 20 mg 20 mg Intravenous q6h Joe Dennison MD 20 mg at 03/13/20 1130 ??? ondansetron (disintegrating) (ZOFRAN ODT) tablet 4 mg 4 mg Oral q8h PRN Alida Marshall, TRANSCRIBING OPERATOR HEAD-SEWING DEMONSTRATOR ??? ondansetron (ZOFRAN) injection 4 mg 4 mg Intravenous q8h PRN Alida Marshall, TRANSCRIBING OPERATOR HEAD-SEWING DEMONSTRATOR ??? pantoprazole EC (PROTONIX) tablet 40 mg 40 mg Oral QDAY Joe Dennison MD 40 mg at 03/13/20 0810 ??? penicillin V potassium (VEETIDS) solution 250 mg 250 mg Oral q12h Kenneth Martins MD 250 mg at 03/13/20 0809 ??? prochlorperazine (COMPAZINE) injection 10 mg 10 mg Intravenous q6h PRN Alida Marshall, TRANSCRIBING OPERATOR HEAD-SEWING DEMONSTRATOR ??? prochlorperazine (COMPAZINE) tablet 5 mg 5 mg Oral q8h PRN Alida Marshall, TRANSCRIBING OPERATOR HEAD-SEWING DEMONSTRATOR ??? rOPINIRole (REQUIP) tablet 0.25 mg 0.25 mg Oral AT BEDTIME Joe Dennison MD 0.25 mg at 03/12/20 2217 ??? sulfamethoxazole-trimethoprim (BACTRIM DS; SEPTRA DS) 800-160 MG tablet 1 tablet 1 tablet Oral MON, WED AND FRI Joe Dennison MD ??? thiamine (VITAMIN B-1) tablet 200 mg 200 mg Oral q12h Joe Dennison MD 200 mg at 03/13/20 0810 ??? traMADol (ULTRAM) tablet 50 mg 50 mg Oral q8h Anali Avery MD 50 mg at 03/13/20 0649 ??? valACYclovir (VALTREX) tablet 500 mg 500 mg Enteral Tube BID Joe Dennison MD 500 mg at 03/13/20 0810 ??? vitamin D3-cholecalciferol (CHOLECALCIFEROL) 25 MCG (1000 UNITS) tablet 2,000 Units 2,000 UnitsOral QDAY Joe Dennison MD 2,000 Units at 03/13/20 0810 ??? zinc gluconate tablet 50 mg 50 mg Oral QDJoe Ortiz MD 50 mg at 03/13/20 0810 I have updated and confirmed the past medical, surgical, family and social history. Objective: Vitals: 03/13/20 0800 03/13/20 0900 03/13/20 1000 03/13/20 1100 BP: 144/91 164/80 128/69 110/67 Pulse: 74 97 78 104 Resp: 24 23 20 28 Temp: 98.3 ??F (36.8 ??C) SpO2: 99% (!) 88% 90% 99% Weight: Height: Physical Exam Unable to obtain 09/05 COVID19 protocol Data Review: Recent Labs: Recent Labs Component Name 03/13/20 0013 03/12/20 0036 03/11/20 0033 03/10/20 0059 03/09/20 0045 WBC 21.7* 14.3* 15.4* 17.7* 16.8* RBC 3.36* 3.71* 3.24* 3.39* 3.34* HGB 9.7* 10.5* 9.2* 9.7* 9.7* HCT 28.1* 30.7* 26.4* 28.1* 28.1* MCV 83.6 82.7 81.5 82.9 84.1 MCH 28.9 28.3 28.4 28.6 29.0 MCHC 34.5 34.2 34.8 34.5 34.5 RDWSD 51.4* 49.8 48.5 49.1 51.3* RDW 17.4* 17.2* 16.7* 16.7* 17.2* MPV 12.5 12.5 12.6 11.4 12.8 NRBCABS 0.13* 0.06* 0.05* 0.09* 0.15* NRBCAUTOPCT 0.6* 0.4* 0.3* 0.5* 0.9* NEUTPCT 92.4* - - 92.8* 85.1* LYMPHSPCT 2.7* - - 4.2* 11.2* MONOPCT 3.1 - - 2.2* 2.6* EOSPCT 0.0 - - 0.0 0.0 BASOPCT 0.1 - - 0.1 0.1 IMMGRANSPCT 1.7* - - 0.7 1.0 NEUTABS 20.1* 13.73* 14.94* 16.4* 14.3* LYMPHS 0.6* 0.43* 0.31* 0.7* 1.9 MONO 0.67* 0.14 0.15 0.38 0.44 EOS 0.00 - - 0.00 0.00 BASO 0.02 - - 0.02 0.01 TOTCELLCNT - 100 100 - - Recent Labs Component Name 03/13/20 0013 03/12/20 0036 03/11/20 0033 POTASSIUM 3.9 4.4 3.8 CO2 26 26 25 BUN 25 25 20 CREATININE 0.7 0.8 0.8 GLUCOSE 142* 119* 107 CALCIUM 8.1* 8.9 8.6 ALKPHOS 125 147 125 ALT 58* 68* 79* AST 23 22 21 EGFR >60 >60 >60 Recent Labs Component Name 03/08/20 1908 COLORU Yellow CLARITYU Clear LABSPEC 1.012 PROTEINU 1+* BLOODU 1+* LEUKOCYTE Negative NITRITE Negative GLUCOSERUR Negative KETONES Trace* BILIRUBINUR Negative UROBILINUA Negative Recent Labs Lab 03/12/20 0036 03/10/20 0059 ESR >130* >130* Recent Labs Component Name 03/13/20 0343 03/12/20 0522 03/10/20 0059 CRP 8.0* 17.3* 30.6* Recent Labs Component Name 03/08/20 0807 03/05/20 1733 03/03/20 1759 VANCTROUGH 24.4* 19.6 17.2 New Imaging: No new imaging Cultures: Blood: 03/08/20 NGTD 03/09/20 NGTD Urine: 03/08/20 NG Assessment 49 year old male with a h/o MM S/P Autologous BMT 10/2019. Now with: 1. New Onset Fever and Hypoxia: Febrile w/ increasing O2 requirements 03/02 - 02/03, currently extubated on high-flow and has defervesed. Of note was on dexa from 02/25 - 03/01 and then steroids re-started 03/04. DDx -> ?? CT Chest w/ worsening GGO as compared to admission: S/P 7 days of vanco and cefepime. Less likely aspiration as no AMS or vomiting. Urine legionella negative. Of notes worsening resp status and fever after steroids have been stopped, ?inflammatory process. S/P bronch w/ BAL on 03/06; PJP/Nocardia/M ucor/Aspergillus/CMV/HHV6/Adenovirus PCR, GM negative, bacteria cx NG, and additional infectious workup pending. Pathology non-specific. ?cardiac component mariela in the setting of recent COVID however BNP WNL. Most recent echo 08/2019 w/ EF in mid 50s. ?? BAL +robyn for COVID. DDx -> acute infection vs residual genetic material given initial infection reportedly on 01/07/20. COVID PROVISIONING ANALYST swab negative x 3, 4th positive; initially mildly elevated inflammatory dhillon which then worsened and now appear to be improving. Currently receiving remdesivir and S/P convalescent plasma on 03/10/20. Monitor inflammatory markers q48h. Unable to send BAL for COVI D culture to a commercial lab unfortunately as this would be able to confirm active infection. ?? ?relapsed lymphoma mariela in the setting of dexa x 4 days and the extended period of fevers patientwas having prior to admission. BMBx and flow unremarkable. ?? BCx NGTD; UCx NG ?? 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 Hx of COVID: Dx in beginning of January 2020, therefore constellation of current symptoms less likely related given prolonged timeline. Serology negative however he just recently underwent an autologous therefore this is expected. CT Chest on admission w/ B/L GGO which may be consistent w/ COVID. 3. Fever on Admission: Resolved. Previously on dexa + vanco/cefepime. DDx -> ?? Resp status stable on RA: CT Chest on admision w/ B/L GGO likely consistent w/ recent COVID infection however S/P 7 days of vanco/cefepime which would treat bacterial superimposed infections. RPP,GM, toxo, histo, blasto negative. COVID x 3 negative. ?? COOPER w/ concerns of meningitis: S/P LP unremarkable for meningitis. CSF crypto and HSV negative. MRI Brain unremarkable. ?? BCx NG 4. Leukocytosis: Fluctuations likely 2/2 variations in timing and type of steroids 5. Renal function: Estimated Creatinine Clearance: 156.2 mL/min (based on SCr of 0.7 mg/dL). Dose adjustment needed: No 6. Allergies:Adhesive sensitivity Recommendations: - Complete course of remdesivir - Monitor WBCs however low threshold to re-culture if continued increase - Monitor inflammatory markers q48h Thank you for involving us in the care of this patient. We will sign off. Please call with questions. Joce Damian DO Transplant Infectious Disease Phone: 03/13/2020 11:49 AM * Inga Cortez, OT - 03/13/2020 10:05 AM CDT [facility] Physical Medicine and Rehabilitation Occupational Therapy Progress Note Patient: Jalil Luis Med Record Number: [id number] Date of : 1970 Age: [age] year old Co-Tx w/ PT Patient is COVID-19 positive. PPE donned by therapist throughout session - disposable gown, gloves, N95 mask, eye protection, faceshield, hair net, alva cover and shoe covers. Discharge Recommendation: Patient should be able to return home when medically cleared by physicianteam. Therapy will continue to treat patient while in hospital. See current amount of assist neededbelow. Precautions: FALLS SAFETY Subjective: Okay At start of therapy session, patient found in bed and with no alarm. Pain: Patient has 0 out of 10 pain in body. Nurse notified. Activities of Daily Living Feeding:NT Grooming/Bathing: Stand By Assist Upper Extremity Dressing: not tested Lower Extremity Dressing: Stand By Assist --02 drops (see vitals) Toileting/Transfers: not tested Mobility: Assist device: none Supine to/from Sit:Stand By Assist Sit to/from Stand: Stand By Assist Bed to/from Chair: Stand By Assist Functional Mobility: From bed to chair with Stand By Assist Splint Issued/Checked: none Splint Check Completed: N/A Balance: Static Sitting: good Dynamic Sitting: good Static Standing: good minus Dynamic Standing: good minus Vitals: Rest BP: 128/69 HR: 85 SpO2 SpO2 89-92% Room Air L 02 100% HFNC Ex/Gait /Activity Without 02 BP: HR: SpO2 Room Air Ex/Gait/ Activity With 02 BP: 131/93 HR: 112 103 110 97 118 90 124 (coughing) 126 (getting to chair) 111 SpO2 78% 80% 84% 85% 78% (putting on socks after he had recovered) 87-88% (switch to Bipap) 88% Bipap (getting to chair; RR 45) 95% (recovering) L 02 100% HFNC 100% CPAP 10 ON BIPAP Post Activity BP: 115/77 HR: 105 101 105 SpO2 SpO2 96% 97% 98% L 02 Room Air SAME BIPAP MODE Observations: Dr Mistry from MICU in room for part of session. Switched him from HFNC to Bipap. Encouraged him to use Bipap for activity (and HFNC when eating/at rest) Activity tolerance: poor--less coughing and better able to recover on HFNC compared to Friday's session. Cognitive/Perceptual: A&Ox4; follows 100% of commands. Not impulsive. Treatment/Therapeutic Exercise: Treatment session this date focused on ADL training Functional transfer training Endurance training Bed mobility Energy conservation Safety awareness HEP training Patient/Family Teaching: Exercise, Gait, Mobility and Self care Equipment Issued: none Update Treatment Plan/Goals : Pt continues to benefit from skilled OT to improve independence with activities of daily living, increase strength, endurance, range of motion and decrease pain. Short Term Goals: Patient will perform grooming?Standing at sink and With modified independence Patient will perform lower extremity dressing?With modified independence Patient will perform toileting?With modified independence Family Nurse Practitioner Goal:Patient to be independent/baseline with functional mobility and self care and be able to safely discharge to prior level of care If patient is discharged from the facility, this note serves as a discharge note if further occupational therapy visits did not occur. Following therapy session, patient left in patient bedside chair, with call light within reach, with RNAmy aware and with RN/CP rehab cues written on white board. Inga Cortez, OT * Amy Anderson, PT - 03/13/2020 9:55 AM CDT [facility] Physical Medicine and Rehabilitation PhysicalTherapy Progress Note Patient: Jalil Luis Med Record Number: [id number] Date of : 1970 Age: [age] year old Pt is COVID POSITIVE. PT and OT wear goggles, N95 mask, alva covers, face shield, gown, and glovesduring session. Co Treat with OT due to medical complexity and level of skilled assist required, especially due to vitals status. Discharge Recommendation: Patient should be able to return home when medically cleared by physicianteam. Therapy will continue to treat patient while in hospital. See current amount of assist neededbelow. Subjective: I can tell when I need to take a break and when it feels better. Patient currently using no assistive device. Unable to progress ambulation due to SPO2 status. Willcontinue to assess AD needs. Mental Status: Alert and oriented X4; 100% command follow ?? At start of therapy session, patient found in bed and with no alarm. ?? Pain: Patient has 0 out of 10 pain reported. No follow up indicated. ?? Weight Bearing Status: BLE WBAT Mobility: Rolling: not tested Supine to Sit:Stand By Assist Sit to Supine: not tested Sit to Stand:Stand By Assist Bed to Chair: Stand By Assist Gait: Pt takes steps to chair no AD with SBS. Demos decreased step length and height. Unable to progress gait due to O2 status this session. Will continue to attempt. Balance: Static Sitting: good Dynamic sitting: good Static Standing: fair plus Dynamic Standing: fair plus Stairs : NT Vitals: Rest BP: 128/69 HR: 85 SpO2 ?? SpO2 89-92% Room Air ?? L 02 ?? 100% HFNC Ex/Gait /Activity Without 02 BP: ?? HR: ?? SpO2 ?? Room Air ?? Ex/Gait/ Activity With 02 BP: 131/93 HR: 112 103 110 97 118 90 ?? 124 (coughing) 126 (getting to chair) 111 SpO2 78% 80% 84% 85% 78% (putting on socks after he had recovered) 87-88% (switch to Bipap) ?? 88% Bipap (getting to chair; RR 45) 95% (recovering) ?? L 02 100% HFNC ? 100% CPAP 10 ON BIPAP Post Activity BP: 115/77 HR: 105 101 105 SpO2 ?? SpO2 96% 97% 98% L 02 ?? Room Air SAME BIPAP MODE Observations: Dr Mistry from MICU in room for part of session. Switched him from HFNC to Bipap. Encouraged him to use Bipap for activity (and HFNC when eating/at rest) Activity Tolerance: Patient's activity tolerance: poor due to O2 status; pt is motivated to participate. Treatment/therapeutic Exercise: Pt sits up on side of bed, donns socks, stands, and tranfers to chair all with SBS. Pt requires max increased time between all tasks 2/2 O2 status. Therapist monitor vitals throughout and pt requires increased time for SPO2 to recover. During session MD arrives and switches pt to BIPAP (CPAP setting) and pt demos improved tolerance to this as compared to high flow.Will continue to attempt to progress standing tolerance. Patient/Family Teaching: Exercise, Gait and Mobility Patient demonstrated Good understanding of instructions given. Short Term Goals: Goal Formation?With patient Patient will perform bed mobility:??Independent Patient will transfer sit to/from stand:??Independent (updated) Patient will transfer bed to/from chair:??Stand By Assist Patient will ambulate??50??feet with Stand By Assist??and appropriate AD Patient will ascend/descend??10??steps: Stand By Assist??and hand rail assist?? Patient will perform home exercise program independently ?? Family Nurse Practitioner Goal(s): Patient to be independent/baseline with functional mobility and self care and be able to safely discharge to prior level of care Update Treatment Plan: Continue with current PT plan of care to improve safety and functional mobility, especially focusing on standing tolerance, progressing gait as able. If patient is discharged from the facility, this note serves as a discharge note if further physical therapy visits did not occur. Following therapy session, patient left in patient bedside chair, with call light within reach and with Amy RILEY aware. Amy Anderson, PT 03/13/2020 * Amy Baron RN - 03/13/2020 9:09 AM CDT Will assess pain Q2H and within 1 hour of intervention. 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 Recent SARS-CoV-2 (+) in the beginning of January as a routine check up. Progressively short of breath and fever 2-3 weeks later and admitted to the hospital 02/24??with complaints of low grade fevers, moderate to severe headache, photophobia, and neck pain x2 weeks. LP on 03/01 with negative findings. On March 04, febrile >102, transitioned to??HFNC 40L CT chest noted worsening GGO s/p vanc, cefepime. ?? Patient underwent bronchoscopy with BAL, brushing, transbronchial biopsy, sent bacterial, fungal, viral, PJP, COVID 19, cell counts, cytology. Started on prednisone per BMT service. Patient was intubated in the bronch suite an transferred to the MICU. COVID+ from bronch. Pt was extubated 03/08 and agreed to Remdesivir however did not want convalescent plasma. Predinisone was discontinued and started on dexamethasone 6mg q24h PO. Vanc and Meropenem were discontinued and ampicillin VK started sinceasplenic. Convalescent plasma started 03/10. Math+Protocol(COVID protocol) started 03/11. SUBJECTIVE INTERVAL HISTORY: Patient had no fever overnight however has been having fevers for 5-6 weeks and at this time are being attributed to his COVID infection. Patient on HFNC with 100% FiO2, will be on cPAP when doing PT to be comfortable and willing to do therapy. Completed Remdesivir and convalescent plasma, tolerated both well. Continue Math+ protocol. OBJECTIVE Temp: [97.6 ??F (36.4 ??C)-98.7 ??F (37.1 ??C)] 97.6 ??F (36.4 ??C) Pulse: [57-147] 87 Resp: [15-25] 25 BP: (103-151)/(53-97) 119/76 O2 %: [90 %-100 %] 90 % Intake/Output Summary (Last 24 hours) at 03/13/2020 0802 Last data filed at 03/13/2020 0710 Gross per 24 hour Intake 2112.17 ml Output 1825 ml Net 287.17 ml Date 03/12/20699 - 03/13/2065803/13/20699 - 03/14/20 0659 Shift 2851-3055 1963-8809 24 Hour Total 7012-8882 3108-2623 24 Hour Total INTAKE P.O. 1972 455 2568 I.V.(mL/kg/hr) 338.4(0.2) 197.5(0.1) 536(0.2) 96.2 96.2 Shift Total(mL/kg) 1338.4(11.4) 677.5(5.8) 2016(17.2) 96.2(0.8) 96.2(0.8) OUTPUT Urine(mL/kg/hr) 700(0.5) 1125(0.8) 1825(0.6) Shift Total(mL/kg) 700(6) 1125(9.6) 1825(15.6) NET 638.4 -447.5 191 96.2 96.2 Weight (kg) 117 117 117 117 117 117 Physical Exam: Dr. Garcia examined Labs CBC: Recent Labs Component Name 03/13/20 0013 03/12/20 0036 03/11/20 0033 WBC 21.7* 14.3* 15.4* HGB 9.7* 10.5* 9.2* BMP: Recent Labs Component Name 03/13/20 0013 03/12/20 0036 03/11/20 0033 NA 142 138 138 CL 105 102 101 CO2 26 26 25 BUN 25 25 20 CREATININE 0.7 0.8 0.8 Recent Labs Component Name 03/13/20 0013 03/12/20 0036 03/11/20 0033 CALCIUM 8.1* 8.9 8.6 PHOS 3.3 3.6 3.6 LFT: Recent Labs Component Name 03/13/20 0013 03/12/20 0036 03/11/20 0033 PROT 5.0* 5.8* 5.4* ALB 2.0* 2.1* 1.9* ALKPHOS 125 147 125 AST 23 22 21 ALT 58* 68* 79* Coagulation: Recent Labs Component Name 03/06/20 1816 02/27/20 2349 02/27/20 0411 09/09/19 1242 PT 14.7 14.2 16.2* 12.9 INR 1.2 1.1 1.3 1.0 PTT 26.0 - 37.9 27.4 Cardiac markers: Recent Labs Component Name 03/03/20 1247 TROPONINI <0.010 ASSESSMENT & PLAN Neurological JUSTIN - Monitor mental status every hour and notify MD if any changes - Fall precautions, Seizure precautions, HOB elevated Cardiovascular: JUSTIN Pulmonary: #AHRF #Hx of COVID (+) #B/l pulmonary infiltrates DDx: Infection, inflammation, medication induced pneumonitis. COVID+ still, Unsure if this acute infx vs residual genetic material from initial infection. We discontinued vanc and cem however due to his immunocompromised status and asplenic started him on ampicillin VK 03/09 for pneumococcal ppx.?? Plan: - continue Math+ protocol. - SARS COVID w/ positive results 03/06 and 03/07. - bacterial, fungal, viral, PJP, COVID 19, cell counts, cytology all normal or negative results. -completed Remdesivir and convalescent plasma -HFNC 100 FiO2, 65L flow rate, CPAP when doing PT -Started Math+ Protocol --thiamine, ascorbic acid, louie D, zinc, ---1 x 80mg methylprednisolone, ---03/11 1800 start 20mg methyprednisolone q6h ---check CRP qDaily #OI PPx Bacterial held in setting of concerns for septicemia - PJP: Bactrim DS MWF - Viral: Valtrex 500mg BID - Titrate Fi O2 to the lowest needed to keep Sats > 88% - Keep HOP elevated 30 degrees, oral care, aspiration precautions GI: JUSTIN Renal: JUSTIN Electrolytes: Monitor chem 7 and Mg every 24 hours and replace Mg if less than1.8 or if K < 3.5 Endocrine: JUSTIN Monitor accucheck every 4 hours and use sliding scale to keep between glucose between 140 - 180 I.D.: #Fevers, resolved Probable COVID, still covering broadly at this time. Repeat COVID pending as there may be componentof material vs acute COVID. -BM results normal cellularity, bacterial, fungal or viral all negative both in sputum and blood - Tylenol prn. 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 BMT on board to help guide management. ?? #Hx of RIJ clot - home eliquis held, on lovenox 120mg BID.?? Transfusion Protocol: Hb < 7, Plt < 10 Musculoskeletal #Pain -tramadol q8h Lines: PIV, ETT Tube Prophylaxis: DVT prophylaxis:Lovenox 120mg BID GI prophylaxis: protonix Aspiration precautions with elevation of HOB by 30 degrees. Fluids: none Diet: Advance as tolerated Activity: Ad Kristi Disposition: ICU Monitoring Code: Full Code Please note, recommendations are not final until attested/co-signed by the attending physician. Anali Avery MD PGY-1, Intensive Care Service 03/13/20 8:02 AM Associated attestation - John Garcia MD - 03/13/2020 1:06 PM CDT I have personally seen and examined the patient and reviewed the pertinent data. I have independently formulated a treatment plan. The treatment plan was discussed/conveyed with/to the MICU Team/Pulmonary Consult Team to execute the care plan. If written, please see my note for additional details, but if an independent note is not written, then I agree with the details of the attached note. Slow improvement. Still requiring sig O2, but he is feeling well. Switch to CPAP when doing activities and working with PT. Still requiring high levels of O2. This may take a couple of weeks to improve. John Garcia MD [facility] Pulmonary/Critical Care/Sleep Medicine Pager: [phone] * Keli Case, TRANSCRIBING OPERATOR HEAD-SEWING DEMONSTRATOR - 03/13/2020 7:15 AM CDT Autologous Hematopoietic Stem Cell Daily Note: PATIENT IDENTIFIERS: JALIL LUIS is a 49 year old male who is Day +145 (Day 0 is 10/20/19) of an autologous peripheral blood stem cell transplant with a 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 INTERVAL HISTORY: Seen by Dr Dumont today Continues to desat on HFNC, and having to go back on BiPAP. This AM, he desats to the low 80's with activity, switched to CPAP for activity. Completed the course of Remdesivir yesterday 03/12, completed the dose for Convalescent plasma, currently on Math protocol WBC elevated, inflammatory markers seem to be trending down. LFT's stable ROS: A comprehensive review of systems was negative except for: as noted above MEDICATIONS FOR CURRENT ENCOUNTER: SCHEDULED MEDICATIONS: 0.9% NaCl injection 3 mL, Intracatheter, q8h albuterol HFA (PROVENTIL;VENTOLIN;PROAIR) 108 (90 Base) MCG/ACT inhaler 2 puff, Inhalation, q4h artificial tears ophthalmic ointment, Each Eye, q8h ascorbic acid (VITAMIN C) 3,000 mg in 0.9% NaCl IV IVPB, Intravenous, q6h enoxaparin (LOVENOX) injection 120 mg, Subcutaneous, q12h escitalopram (LEXAPRO) tablet 10 mg, Oral, QDAY methylPREDNISolone sod succ (SOLU-Medrol) injection 20 mg, Intravenous, q6h pantoprazole EC (PROTONIX) tablet 40 mg, Oral, QDAY penicillin V potassium (VEETIDS) solution 250 mg, Oral, q12h rOPINIRole (REQUIP) tablet 0.25 mg, Oral, AT BEDTIME sulfamethoxazole-trimethoprim (BACTRIM DS; SEPTRA DS) 800-160 MG tablet 1 tablet, Oral, MON, WED AND FRI thiamine (VITAMIN B-1) tablet 200 mg, Oral, q12h traMADol (ULTRAM) tablet 50 mg, Oral, q8h valACYclovir (VALTREX) tablet 500 mg, Enteral Tube, BID vitamin D3-cholecalciferol (CHOLECALCIFEROL) 25 MCG (1000 UNITS) tablet 2,000 Units, Oral, QDAY zinc gluconate tablet 50 mg, Oral, QDAY ?? [COMPLETED] remdesivir 100 mg in 0.9% NaCl IV 250 mL infusion, Intravenous, q24h ?? CONTINUOUS MEDICATIONS: PRN MEDICATIONS: 0.9% NaCl injection 1-10 mL, Intracatheter, PRN acetaminophen (TYLENOL) tablet 325 mg, Oral, q4h PRN magnesium sulfate 2 g in 50 mL bolus, Intravenous, PRN ondansetron (disintegrating) (ZOFRAN ODT) tablet 4 mg, Oral, q8h PRN ondansetron (ZOFRAN) injection 4 mg, Intravenous, q8h PRN prochlorperazine (COMPAZINE) injection 10 mg, Intravenous, q6h PRN ?? prochlorperazine (COMPAZINE) tablet 5 mg, Oral, q8h PRN VITALS: Vitals: 03/13/20 0500 03/13/20 0504 03/13/20 0600 03/13/20 0700 BP: 130/87 132/75 119/76 Pulse: 59 57 60 87 Resp: 15 16 25 Temp: 97.6 ??F SpO2: 99% 99% 100% 91% Weight: Height: Wt Readings from Last 3 Encounters: 03/11/20 117 kg (257 lb 15 oz) 02/26/20 120.2 kg (265 lb) 11/15/19 123.4 kg (272 lb) Date 03/12/20 07 - 03/13/20 0659 03/13/20 07 - 03/14/20 0659 Shift 2455-8376 0428-4655 24 Hour Total 9784-1323 9766-5998 24 Hour Total INTAKE P.O. 8622 155 5009 750 750 I.V.(mL/kg/hr) 338.4(0.2) 197.5(0.1) 536(0.2) 96.2 96.2 Shift Total(mL/kg) 1338.4(11.4) 677.5(5.8) 2016(17.2) 846.2(7.2) 846.2(7.2) OUTPUT Urine(mL/kg/hr) 700(0.5) 1125(0.8) 1825(0.6) 400 400 Shift Total(mL/kg) 700(6) 1125(9.6) 1825(15.6) 400(3.4) 400(3.4) NET 638.4 -447.5 191 446.2 446.2 Weight (kg) 117 117 117 117 117 117 PHYSICAL EXAM: Examined by the attending. LABS: Recent Labs Component Name 03/13/20 0013 03/12/20 0036 03/11/20 0033 03/10/20 0059 03/09/20 0045 WBC 21.7* 14.3* 15.4* 17.7* 16.8* RBC 3.36* 3.71* 3.24* 3.39* 3.34* HGB 9.7* 10.5* 9.2* 9.7* 9.7* HCT 28.1* 30.7* 26.4* 28.1* 28.1* MCV 83.6 82.7 81.5 82.9 84.1 MCH 28.9 28.3 28.4 28.6 29.0 MCHC 34.5 34.2 34.8 34.5 34.5 PLTCOUNT 221 252 218 231 268 RDWSD 51.4* 49.8 48.5 49.1 51.3* RDW 17.4* 17.2* 16.7* 16.7* 17.2* MPV 12.5 12.5 12.6 11.4 12.8 NRBCABS 0.13* 0.06* 0.05* 0.09* 0.15* NRBCAUTOPCT 0.6* 0.4* 0.3* 0.5* 0.9* NEUTPCT 92.4* - - 92.8* 85.1* LYMPHSPCT 2.7* - - 4.2* 11.2* MONOPCT 3.1 - - 2.2* 2.6* EOSPCT 0.0 - - 0.0 0.0 BASOPCT 0.1 - - 0.1 0.1 IMMGRANSPCT 1.7* - - 0.7 1.0 NEUTABS 20.1* 13.73* 14.94* 16.4* 14.3* LYMPHS 0.6* 0.43* 0.31* 0.7* 1.9 MONO 0.67* 0.14 0.15 0.38 0.44 EOS 0.00 - - 0.00 0.00 BASO 0.02 - - 0.02 0.01 TOTCELLCNT - 100 100 - - Recent Labs Component Name 03/13/20 0013 03/12/20 0036 03/11/20 0033 BUN 25 25 20 CREATININE 0.7 0.8 0.8 NA 142 138 138 POTASSIUM 3.9 4.4 3.8 CL 105 102 101 CO2 26 26 25 CALCIUM 8.1* 8.9 8.6 PROT 5.0* 5.8* 5.4* ALB 2.0* 2.1* 1.9* TBILI 0.3 0.5 0.5 ALKPHOS 125 147 125 ALT 58* 68* 79* AST 23 22 21 ANIONGAP 15 14 16 BCR 36* 31* 25* OSMOLALITY 301* 292 289 AGRATIO 0.7* 0.6* 0.5* EGFR >60 >60 >60 Recent Labs Component Name 03/13/20 0013 03/12/20 0036 03/11/20 0033 MAGNESIUM 2.0 2.3 1.9 Recent Labs Component Name 03/13/20 0013 03/12/20 0036 03/11/20 0033 PHOS 3.3 3.6 3.6 Pathology: CD4: see epic 02/26 BMBX (03/03/20): Path- Normocellular marrow with maturing trilineage hematopoiesis. No morphologic evidence of residual/recurrent non-Hodgkin lymphoma. Flow-NISHA Cyto- pending FISH- pending Infectious Workup Covid swap (03/07/20): positive Bronch (03/06/20): COVID +, otherwise negative. Path pending COVID (03/04/20):negative COVID (03/03/20): negative PJP PCR: negative Beta D Glucan: pending Blastomyces: ND Histoplasma blood: negative Histoplasma urine: negative Asperigillus: negative Toxoplasma PCR: negative Bartonella IgG: negative Bartonella IgM: negative Cryptococcus: Negative Urine Legionella: Negative Last BC x2 (03/09): Pending UA with culture (02/25/20): NGTD RVP (02/25/20): ND Covid swab (02/25/20): negative Covid IgG (02/25/20): Negative RADIOLOGY: PCX (03/05/20): Increase in diffuse patchy airspace opacities in bilateral lungs concerning for multifocal pneumonia. Small left pleural effusion is suggested. There is no pneumothorax. The cardiomediastinal silhouette is Normal Venous Duplex (03/03/20): Negative for DVT CT Chest (03/02/30): 1. Altered distribution of prominent geographic groundglass opacities within the upper and lower lung zones bilaterally. This suggests ongoing inflammatory or infectious process, rather than discrete areas of progressive fibrosis. Areas of groundglass can progress to fibrosis, therefore continued follow-up is advised.2. Re-demonstration of nonocclusive thrombus within the left brachiocephalic vein which extends to the superior vena cava CT C/A/P (02/26/20): 1. Patchy, peripheral predominant groundglass opacities in [...] acute process identified in the abdomen or pelvis ECHO (03/02/20): Limited echo to assess left ventricular function. There is concentric remodeling of the left ventricle. The left ventricle is normal size. Left ventricular segmental wall motion is normal. Left ventricular systolic function is normal with an ejection fraction by Biplane Method of Discs of 68 %. ASSESSMENT/PLAN: JALIL LUIS is a 49 year old male, who is Day +145 (Day 0 is 10/20/19) of an autologous peripheral blood stem cell transplant with a 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 SYSTEMS: Marginal Zone Lymphoma in CR2 pre-transplant Schema: 5A Prep: BEAM, Cell count 10.4 x 10^6 CD34+cells/kg in 5 bags; day [address] A/P -- BMBx completed (03/03) -Transfusion threshold: Hgb > 7; Plt > 10; CMV +, transfusion pre meds: none needed -Engraftment: ANC day +9 (10/29/19); plt engraftment 11/03/19 (day +14) OI prophylaxis: Bacterial:??Hold Pen VK d/t escalation of antibiotics PJP:??Bactrim DS MWF Viral: Valtrex 500mg BID Covid -tested positive early January, asymptomatic at that time -Inflammatory markers Q 48hrs, Last done 03/10 - mostly elevated -Covid from bronch 03/07 and PROVISIONING ANALYST swab 03/07/ came back positive -remdesivir started 03/08 - convalescent plasma, patient refused initially and is now agreeable to gettting it today (03/10/20). - Starting MATH + protocol today- Solumedrol 80 mg once then 20 mg q 6 hours and vitamins>>appreciate MICU progress note Persistent Fevers -Afebrile, last fever 03/09 -BC Q24 when febrile - IgG - 209 , Repeat IgG and if low, replace - CT C/A/P, results above - ID consult, appreciate recs - Completed 7D course of cem and vanco on 03/08/20 Hypoxia - HFNC at rest and CPAP with activity -intubated 03/06/20 -03/08/20 -pred 90mg (1mg/kg) PO daily for possible BCNU pneumonitis 03/05-03/08/20 and switched to Dex 6mg daily. Dex was d/c 03/12 and started Solumedrol with the [facility] protocol -Last CT chest 03/02/20, see above -03/03 BNP 25 and ECHO (03/03) negative -Consult Pulm; Bronch on 03/06/20 Elevated LFT's -LFT's trending down -hold Tylenol if possible -follow closely Headaches - tramadol 50 mg q8h - Neuro consult >LP completed 03/01. Results negative for meningitis Right IJ venous clot 09/27/19 -on Lovenox 120 mg Q12H while inpt - previously on Eliquis 5 mg BID Pertinent Medical History: Anxiety/Depression- Lexapro 10 mg daily Restless Leg Syndrome - Requip 0.25 mg QHS Discharge Planning: Patients preferred contact information: cell Caregiver: sister, girlfriend Preferred D/C Pharmacy: [email or web address] Intended lodging: home Referring provider: Cesar Tavares Disposition: Remain on 6ICU Keli Evie, AGNP-BC Blood and Marrow Transplant [facility] Associated attestation - Tony Dumont MD - 03/13/2020 8:26 PM CDT I independently interviewed and examined Jalil Luis with the BMT advanced practice provider. I reviewed my findings and assessment with the advanced practice provider and the patient. I reviewed the below note. Please see note for full detail.I agree with the findings and plan of care as documented by the advanced practice provider * Neema Pisano RN - 03/12/2020 11:02 PM CDT Problem: Pain/Discomfort Goal: Patient exhibits reduced pain/discomfort as evidenced by pain scores Outcome: Ongoing Goal: Patient uses pharmacological and non-pharmacological pain management strategies. Outcome: Ongoing Goal: Patient verbalizes acceptable level of pain relief and ability to engage in desired activity. Outcome: Ongoing Problem: Fall Risk Goal: Fall risk and fall related injury risk are minimized Outcome: Ongoing Problem: Isolation Goal: Prevent Transmission of Infection Outcome: Ongoing Problem: Isolation Goal: Prevent Transmission of Infection Outcome: Ongoing Problem: Anemia Goal: Patient able to verbalize preventions and signs & symptoms Outcome: Ongoing Problem: Protective Precautions Goal: Patient will remain free of Nosocomial Infections Outcome: Ongoing Problem: Nutrient: Increased nutrient needs (specify) Goal: Total intake will meet estimated nutrient needs Outcome: Ongoing Problem: Balance Goal: LTG - Patient will maintain standing and sitting balance to allow for completion of daily activities Outcome: Ongoing Problem: Balance Goal: LTG - Patient will maintain balance to allow for safe mobility Outcome: Ongoing Problem: Skin Integrity Goal: Skin integrity is maintained or improved Outcome: Ongoing * Joe Dennison MD - 03/12/2020 5:51 PM CDT CCU PROGRESS NOTE Name: Jalil Luis Admit Date and Time: 02/25/2020 9:41 PM LOS: LOS: 16 days /Bed: [address] [place] [address] Hospital Day: 16 BRIEF HOSPITAL COURSE: per Joe Dennison MD 49 year oldmale [facility] 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 Recent SARS-CoV-2 (+) in the beginning of January as a routine check up. Progressively short of breath and fever 2-3 weeks later and admitted to the hospital 02/24??with complaints of low grade fevers, moderate to severe headache, photophobia, and neck pain x2 weeks. LP on 03/01 with negative findings. On March 04, febrile >102, transitioned to??HFNC 40L CT chest noted worsening GGO s/p vanc, cefepime. ?? Patient underwent bronchoscopy with BAL, brushing, transbronchial biopsy, sent bacterial, fungal, viral, PJP, COVID 19, cell counts, cytology. Started on prednisone per BMT service. Patient was intubated in the bronch suite an transferred to the MICU. COVID+ from bronch. Pt was extubated 03/08 and agreed to Remdesivir however did not want convalescent plasma. Predinisone was discontinued and started on dexamethasone 6mg q24h PO. Vanc and Meropenem were discontinued and ampicillin VK started sinceasplenic. Convalescent plasma started 03/10. Math+Protocol(COVID protocol) started 03/11. SUBJECTIVE INTERVAL HISTORY: Patient had no fever overnight however has been having fevers for 5-6 weeks and at this time are being attributed to his COVID infection. Patient on HFNC with 100% FiO2. Also tolerating Remdesivir well and started convalescent plasma. Continue Math+ protocol. OBJECTIVE Temp: [97.8 ??F (36.6 ??C)-98.9 ??F (37.2 ??C)] 98.4 ??F (36.9 ??C) Pulse: [64-101] 76 Resp: [17-28] 21 BP: (103-156)/(53-94) 108/54 O2 %: [88 %-100 %] 100 % Intake/Output Summary (Last 24 hours) at 03/12/2020 1751 Last data filed at 03/12/2020 1638 Gross per 24 hour Intake 2175.06 ml Output 1700 ml Net 475.06 ml Date 03/11/20699 - 03/12/20 0603/12/20699 - 03/13/20 0659 Shift 4772-6895 7014-3694 24 Hour Total 5881-2678 4480-0107 24 Hour Total INTAKE P.O. 4148 756 3800 500 500 I.V.(mL/kg/hr) 348.6(0.2) 296.7(0.2) 645.3(0.2) 338.4 338.4 Shift Total(mL/kg) 1348.6(11.5) 836.7(7.2) 2185.3(18.7) 838.4(7.2) 838.4(7.2) OUTPUT Urine(mL/kg/hr) 950(0.7) 1000(0.7) 1950(0.7) 700 700 Shift Total(mL/kg) 950(8.1) 1000(8.5) 1950(16.7) 700(6) 700(6) NET 398.6 -163.4 235.3 138.4 138.4 Weight (kg) 117 117 117 117 117 117 Physical Exam: Dr. Garcia examined Labs CBC: Recent Labs Component Name 03/12/20 0036 03/11/20 0033 03/10/20 0059 WBC 14.3* 15.4* 17.7* HGB 10.5* 9.2* 9.7* BMP: Recent Labs Component Name 03/12/20 0036 03/11/20 0033 03/10/20 0059 NA 138 138 137 CL 102 101 103 CO2 26 25 22 BUN 25 20 17 CREATININE 0.8 0.8 0.7 Recent Labs Component Name 03/12/20 0036 03/11/20 0033 03/10/20 0059 CALCIUM 8.9 8.6 7.9* PHOS 3.6 3.6 2.9 LFT: Recent Labs Component Name 03/12/20 0036 03/11/20 0033 03/10/20 0059 PROT 5.8* 5.4* 5.1* ALB 2.1* 1.9* 1.7* ALKPHOS 147 125 152* AST 22 21 48* ALT 68* 79* 120* Coagulation: Recent Labs Component Name 03/06/20 1816 02/27/20 2349 02/27/20 0411 09/09/19 1242 PT 14.7 14.2 16.2* 12.9 INR 1.2 1.1 1.3 1.0 PTT 26.0 - 37.9 27.4 Cardiac markers: Recent Labs Component Name 03/03/20 1247 TROPONINI <0.010 ASSESSMENT & PLAN Neurological JUSTIN - Monitor mental status every hour and notify MD if any changes - Fall precautions, Seizure precautions, HOB elevated Cardiovascular: JUSTIN Pulmonary: #AHRF #Hx of COVID (+) #B/l pulmonary infiltrates DDx: Infection, inflammation, medication induced pneumonitis. COVID+ still, Unsure if this acute infx vs residual genetic material from initial infection. We discontinued vanc and cem however due to his immunocompromised status and asplenic started him on ampicillin VK 03/09 for pneumococcal ppx.?? Plan: - continue Math+ protocol. - SARS COVID w/ positive results 03/06 and 03/07. - bacterial, fungal, viral, PJP, COVID 19, cell counts, cytology all normal or negative results. -continue Remdesivir, continue watching LFTs for sideeffect -HFNC 100 FiO2, 65L flow rate -started convalescent plasma -Started Math+ Protocol --thiamine, ascorbic acid, louie D, zinc, ---1 x 80mg methylprednisolone, ---03/11 1800 start 20mg methyprednisolone q6h ---check CRP qDaily #OI PPx Bacterial held in setting of concerns for septicemia - PJP: Bactrim DS MWF - Viral: Valtrex 500mg BID - Titrate Fi O2 to the lowest needed to keep Sats > 88% - Keep HOP elevated 30 degrees, oral care, aspiration precautions GI: JUSTIN Renal: JUSTIN Electrolytes: Monitor chem 7 and Mg every 24 hours and replace Mg if less than1.8 or if K < 3.5 Endocrine: JUSTIN Monitor accucheck every 4 hours and use sliding scale to keep between glucose between 140 - 180 I.D.: #Fevers Probable COVID, still covering broadly at this time. Repeat COVID pending as there may be componentof material vs acute COVID. -BM results normal cellularity, bacterial, fungal or viral all negative both in sputum and blood - Tylenol prn. 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 BMT on board to help guide management. ?? #Hx of RIJ clot - home eliquis held, on lovenox 120mg BID.?? Transfusion Protocol: Hb < 7, Plt < 10 Musculoskeletal #Pain -tramadol q8h Lines: PIV, ETT Tube Prophylaxis: DVT prophylaxis:Lovenox 120mg BID GI prophylaxis: protonix Aspiration precautions with elevation of HOB by 30 degrees. Fluids: none Diet: Advance as tolerated Activity: Ad Kristi Disposition: ICU Monitoring Code: Full Code Please note, recommendations are not final until attested/co-signed by the attending physician. Joe Dennison MD PGY-2, Internal Medicine 03/12/20 5:51 PM Associated attestation - John Garcia MD - 03/12/2020 10:27 PM CDT I have personally seen and examined the patient and reviewed the pertinent data. I have independently formulated a treatment plan. The treatment plan was discussed/conveyed with/to the MICU Team/Pulmonary Consult Team to execute the care plan. If written, please see my note for additional details, but if an independent note is not written, then I agree with the details of the attached note. Slow improvement. Still requiring sig O2, but he is feeling well. John Garcia MD [employer] of Internal Medicine Division Pulmonary/Critical Care/Sleep Medicine Pager: [phone] * Sarah Pepe, PT - 03/12/2020 10:03 AM CDT [facility] Department of Physical Medicine & Rehabilitation Progress Note Patient: Jalil Luis [facility] Record Number: [id number] Date of : 1970 Age: [age] year old 03/12/20 1000 Missed Visit Missed Visit Refused Patient refused therapy intervention due to Fatigue;RN Notified of Refusal * Vicki Alex OT - 03/12/2020 9:06 AM CDT [facility] Department of Physical Medicine & Rehabilitation Progress Note Patient: Jalil Luis [facility] Record Number: [id number] Date of : 1970 Age: [age] year old 03/12/20 0900 Missed Visit Missed Visit Refused Patient refused therapy intervention due to Fatigue;RN Notified of Refusal * Shalini Segal MD - 03/12/2020 6:55 AM CDT Autologous Hematopoietic Stem Cell Daily Note: PATIENT IDENTIFIERS: JALIL LUIS is a 49 year old male who is Day +144 (Day 0 is 10/20/19) of an autologous peripheral blood stem cell transplant with a 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 INTERVAL HISTORY: Seen by attending Dr. Segal He has some shortness of breath during the night switched to BIPAP This morning on high flow O2 Ate well, No complaints. shortness of breath stable No cough no fcver ROS: A comprehensive review of systems was negative except for: as noted above MEDICATIONS FOR CURRENT ENCOUNTER: SCHEDULED MEDICATIONS: 0.9% NaCl injection 3 mL, Intracatheter, q8h albuterol HFA (PROVENTIL;VENTOLIN;PROAIR) 108 (90 Base) MCG/ACT inhaler 2 puff, Inhalation, q4h artificial tears ophthalmic ointment, Each Eye, q8h ascorbic acid (VITAMIN C) 3,000 mg in 0.9% NaCl IV IVPB, Intravenous, q6h enoxaparin (LOVENOX) injection 120 mg, Subcutaneous, q12h escitalopram (LEXAPRO) tablet 10 mg, Oral, QDAY methylPREDNISolone sod succ (SOLU-Medrol) injection 20 mg, Intravenous, q6h pantoprazole EC (PROTONIX) tablet 40 mg, Oral, QDAY penicillin V potassium (VEETIDS) solution 250 mg, Oral, q12h remdesivir 100 mg in 0.9% NaCl IV 250 mL infusion, Intravenous, q24h rOPINIRole (REQUIP) tablet 0.25 mg, Oral, AT BEDTIME thiamine (VITAMIN B-1) tablet 200 mg, Oral, q12h traMADol (ULTRAM) tablet 50 mg, Oral, q8h valACYclovir (VALTREX) tablet 500 mg, Enteral Tube, BID vitamin D3-cholecalciferol (CHOLECALCIFEROL) 25 MCG (1000 UNITS) tablet 2,000 Units, Oral, QDAY zinc gluconate tablet 50 mg, Oral, QDAY [COMPLETED] methylPREDNISolone sod succ (SOLU-Medrol) injection 80 mg, Intravenous, Once ?? [START ON 03/13/2020] sulfamethoxazole-trimethoprim (BACTRIM DS; SEPTRA DS) 800-160 MG tablet 1 tablet, Oral, MON, WED AND FRI ?? CONTINUOUS MEDICATIONS: PRN MEDICATIONS: 0.9% NaCl injection 1-10 mL, Intracatheter, PRN acetaminophen (TYLENOL) tablet 325 mg, Oral, q4h PRN magnesium sulfate 2 g in 50 mL bolus, Intravenous, PRN ondansetron (disintegrating) (ZOFRAN ODT) tablet 4 mg, Oral, q8h PRN ondansetron (ZOFRAN) injection 4 mg, Intravenous, q8h PRN prochlorperazine (COMPAZINE) injection 10 mg, Intravenous, q6h PRN ?? prochlorperazine (COMPAZINE) tablet 5 mg, Oral, q8h PRN VITALS: Vitals: 03/12/20 0400 03/12/20 0500 03/12/20 0526 03/12/20 0600 BP: 131/75 156/94 125/80 Pulse: 72 98 78 71 Resp: 19 21 Temp: 98.7 ??F 97.8 ??F SpO2: 92% (!) 89% 90% 95% Weight: Height: Wt Readings from Last 3 Encounters: 03/11/20 117 kg (257 lb 15 oz) 02/26/20 120.2 kg (265 lb) 11/15/19 123.4 kg (272 lb) Date 03/11/20699 - 03/12/2065803/12/20699 - 03/13/20 0659 Shift 0733-9089 4420-0260 24 Hour Total 9497-0084 3513-1942 24 Hour Total INTAKE P.O. 3165 197 6145 I.V.(mL/kg/hr) 348.6(0.2) 296.7 645.3 Shift Total(mL/kg) 1348.6(11.5) 836.7(7.2) 2185.3(18.7) OUTPUT Urine(mL/kg/hr) 950(0.7) 1000 1950 Shift Total(mL/kg) 950(8.1) 1000(8.5) 1950(16.7) NET 398.6 -163.4 235.3 Weight (kg) 117 117 117 117 117 117 PHYSICAL EXAM: Did not examin today LABS: Recent Labs Component Name 03/12/20 0036 03/11/20 0033 03/10/20 0059 03/09/20 0045 03/08/20 0023 WBC 14.3* 15.4* 17.7* 16.8* 10.8* RBC 3.71* 3.24* 3.39* 3.34* 3.53* HGB 10.5* 9.2* 9.7* 9.7* 10.1* HCT 30.7* 26.4* 28.1* 28.1* 30.6* MCV 82.7 81.5 82.9 84.1 86.7 MCH 28.3 28.4 28.6 29.0 28.6 MCHC 34.2 34.8 34.5 34.5 33.0 PLTCOUNT 252 218 231 268 238 RDWSD 49.8 48.5 49.1 51.3* 55.3* RDW 17.2* 16.7* 16.7* 17.2* 19.5* MPV 12.5 12.6 11.4 12.8 - NRBCABS 0.06* 0.05* 0.09* 0.15* 0.11* NRBCAUTOPCT 0.4* 0.3* 0.5* 0.9* 1.0* NEUTPCT - - 92.8* 85.1* 87.4* LYMPHSPCT - - 4.2* 11.2* 7.6* MONOPCT - - 2.2* 2.6* 3.7 EOSPCT - - 0.0 0.0 0.0 BASOPCT - - 0.1 0.1 0.1 IMMGRANSPCT - - 0.7 1.0 1.2* NEUTABS 13.73* 14.94* 16.4* 14.3* 9.5* LYMPHS 0.43* 0.31* 0.7* 1.9 0.8 MONO 0.14 0.15 0.38 0.44 0.40 EOS - - 0.00 0.00 0.00 BASO - - 0.02 0.01 0.01 TOTCELLCNT 100 100 - - - Recent Labs Component Name 03/12/20 0036 03/11/20 0033 03/10/20 0059 BUN 25 20 17 CREATININE 0.8 0.8 0.7 NA 138 138 137 POTASSIUM 4.4 3.8 4.1 CL 102 101 103 CO2 26 25 22 CALCIUM 8.9 8.6 7.9* PROT 5.8* 5.4* 5.1* ALB 2.1* 1.9* 1.7* TBILI 0.5 0.5 0.6 ALKPHOS 147 125 152* ALT 68* 79* 120* AST 22 21 48* ANIONGAP 14 16 16 BCR 31* 25* 24* OSMOLALITY 292 289 285 AGRATIO 0.6* 0.5* 0.5* EGFR >60 >60 >60 Recent Labs Component Name 03/12/20 0036 03/11/20 0033 03/10/20 0059 MAGNESIUM 2.3 1.9 2.0 Recent Labs Component Name 03/12/20 0036 03/11/20 0033 03/10/20 0059 PHOS 3.6 3.6 2.9 Pathology: CD4: see epic 02/26 BMBX (03/03/20): Path- Normocellular marrow with maturing trilineage hematopoiesis. No morphologic evidence of residual/recurrent non-Hodgkin lymphoma. Flow-NISHA Cyto- pending FISH- pending Infectious Workup Covid swap (03/07/20): positive Bronch (03/06/20): COVID +, otherwise negative. Path pending COVID (03/04/20):negative COVID (03/03/20): negative PJP PCR: negative Beta D Glucan: pending Blastomyces: ND Histoplasma blood: negative Histoplasma urine: negative Asperigillus: negative Toxoplasma PCR: negative Bartonella IgG: negative Bartonella IgM: negative Cryptococcus: Negative Urine Legionella: Negative Last BC x2 (03/09): Pending UA with culture (02/25/20): NGTD RVP (02/25/20): ND Covid swab (02/25/20): negative Covid IgG (02/25/20): Negative RADIOLOGY: PCX (03/05/20): Increase in diffuse patchy airspace opacities in bilateral lungs concerning for multifocal pneumonia. Small left pleural effusion is suggested. There is no pneumothorax. The cardiomediastinal silhouette is Normal Venous Duplex (03/03/20): Negative for DVT CT Chest (03/02/30): 1. Altered distribution of prominent geographic groundglass opacities within the upper and lower lung zones bilaterally. This suggests ongoing inflammatory or infectious process, rather than discrete areas of progressive fibrosis. Areas of groundglass can progress to fibrosis, therefore continued follow-up is advised.2. Re-demonstration of nonocclusive thrombus within the left brachiocephalic vein which extends to the superior vena cava CT C/A/P (02/26/20): 1. Patchy, peripheral predominant groundglass opacities in [...] acute process identified in the abdomen or pelvis ECHO (03/02/20): Limited echo to assess left ventricular function. There is concentric remodeling of the left ventricle. The left ventricle is normal size. Left ventricular segmental wall motion is normal. Left ventricular systolic function is normal with an ejection fraction by Biplane Method of Discs of 68 %. ASSESSMENT/PLAN: JALIL LUIS is a 49 year old male, who is Day +144 (Day 0 is 10/20/19) of an autologous peripheral blood stem cell transplant with a 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 SYSTEMS: Marginal Zone Lymphoma in CR2 pre-transplant Schema: 5A Prep: BEAM, Cell count 10.4 x 10^6 CD34+cells/kg in 5 bags; day [address] A/P -- BMBx completed (03/03) -Transfusion threshold: Hgb > 7; Plt > 10; CMV +, transfusion pre meds: none needed -Engraftment: ANC day +9 (10/29/19); plt engraftment 11/03/19 (day +14) OI prophylaxis: Bacterial:??Hold Pen VK d/t escalation of antibiotics PJP:??Bactrim DS MWF Viral: Valtrex 500mg BID Covid -tested positive early January, asymptomatic at that time -Inflammatory markers Q 48hrs, Last done 03/10 - mostly elevated -Covid from bronch 03/07 and PROVISIONING ANALYST swab 03/07/ came back positive -remdesivir started 03/08 - convalescent plasma, patient refused initially and is now agreeable to gettting it today (03/10/20). - Starting MATH + protocol today- Solumedrol 80 mg once then 20 mg q 6 hours and vitamins>>appreciate MICU progress note Persistent Fevers -Afebrile overnight -BC Q24 when febrile - IgG - 209 - plan to replace when stable - CT C/A/P, results above - ID consult, appreciate recs - Completed 7D course of cem and vanco on 03/08/20 Hypoxia - Bipap overnight>>switched HFNC in AM -intubated 03/06/20 -03/08/20 -pred 90mg (1mg/kg) PO daily for possible BCNU pneumonitis 03/05-03/08/20 -Dex 6mg daily -Last CT chest 03/02/20, see above -03/03 BNP 25 and ECHO (03/03) negative -Consult Pulm; Bronch on 03/06/20 Elevated LFT's -LFT's trending down -hold Tylenol if possible -follow closely Headaches - tramadol 50 mg q8h - Neuro consult >LP completed 03/01. Results negative for meningitis Right IJ venous clot 09/27/19 -on Lovenox 120 mg Q12H while inpt - previously on Eliquis 5 mg BID Pertinent Medical History: Anxiety/Depression- Lexapro 10 mg daily Restless Leg Syndrome - Requip 0.25 mg QHS Discharge Planning: Patients preferred contact information: cell Caregiver: sister, girlfriend Preferred D/C Pharmacy: [facility] Intended lodging: home Referring provider: Cesar Tavares Disposition: Remain on 6ICU Christina Espinoza TALENT ACQUISITION OPERATIONS MANAGER- Blood and Bone Marrow Transplant Program [facility] I personally evaluated and examined Mr. Jalil Luis. I confirmed the alfonso elements of of history and physical examination. I also discussed the assessment and plan in detail with the team on rounds and with the patient. I made some modifications to the above note. I fully concur with the above assessment and plan. Ezio Segal MD External Grinder Tender Department of Internal Medicine Division of Hematology Oncology * Neema Pisano RN - 03/11/2020 11:21 PM CDT Problem: Pain/Discomfort Goal: Patient exhibits reduced pain/discomfort as evidenced by pain scores Outcome: Ongoing Goal: Patient uses pharmacological and non-pharmacological pain management strategies. Outcome: Ongoing Goal: Patient verbalizes acceptable level of pain relief and ability to engage in desired activity. Outcome: Ongoing Problem: Fall Risk Goal: Fall risk and fall related injury risk are minimized Outcome: Ongoing Problem: Isolation Goal: Prevent Transmission of Infection Outcome: Ongoing Problem: Isolation Goal: Prevent Transmission of Infection Outcome: Ongoing Problem: Anemia Goal: Patient able to verbalize preventions and signs & symptoms Outcome: Ongoing Problem: Protective Precautions Goal: Patient will remain free of Nosocomial Infections Outcome: Ongoing Problem: Mechanical Ventilation Goal: Ability to express needs and understand communication Outcome: Ongoing Problem: Nutrient: Increased nutrient needs (specify) Goal: Total intake will meet estimated nutrient needs Outcome: Ongoing Problem: Balance Goal: LTG - Patient will maintain standing and sitting balance to allow for completion of daily activities Outcome: Ongoing Problem: Balance Goal: LTG - Patient will maintain balance to allow for safe mobility Outcome: Ongoing Problem: Skin Integrity Goal: Skin integrity is maintained or improved Outcome: Ongoing * Sarah Pepe, PT - 03/11/2020 4:17 PM CDT [facility] Department of Physical Medicine & Rehabilitation Progress Note Patient: Jalil Luis Med Record Number: [id number] Date of : 1970 Age: [age] year old 03/11/20 1600 Missed Visit Missed Visit MD Cancel;RN Cancel * Vicki Alex OT - 03/11/2020 3:06 PM CDT [facility] Department of Physical Medicine & Rehabilitation Progress Note Patient: Jalil Luis Med Record Number: [id number] Date of : 1970 Age: [age] year old 03/11/20 1500 Missed Visit Missed Visit Cancel;RN Cancel Pt desat yesterday and MD request that patient not get up this date * Anali Avery MD - 03/11/2020 9:47 AM CDT CCU PROGRESS NOTE Name: Jalil Luis Admit Date and Time: 02/25/2020 9:41 PM LOS: LOS: 15 days Rm/Bed: 641/641-01 Hospital Day: 15 BRIEF HOSPITAL COURSE: per Joe Dennison MD 49 year oldmale [facility] 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 Recent SARS-CoV-2 (+) in the beginning of January as a routine check up. Progressively short of breath and fever 2-3 weeks later and admitted to the hospital 02/24??with complaints of low grade fevers, moderate to severe headache, photophobia, and neck pain x2 weeks. LP on 03/01 with negative findings. On March 04, febrile >102, transitioned to??HFNC 40L CT chest noted worsening GGO s/p vanc, cefepime. ?? Patient underwent bronchoscopy with BAL, brushing, transbronchial biopsy, sent bacterial, fungal, viral, PJP, COVID 19, cell counts, cytology. Started on prednisone per BMT service. Patient was intubated in the bronch suite an transferred to the MICU. COVID+ from bronch. Pt was extubated 03/08 and agreed to Remdesivir however did not want convalescent plasma. Predinisone was discontinued and started on dexamethasone 6mg q24h PO. Vanc and Meropenem were discontinued and ampicillin VK started sinceasplenic. Convalescent plasma started 03/10. Math+Protocol(COVID protocol) started 03/11. SUBJECTIVE INTERVAL HISTORY: Patient had no fever overnight however has been having fevers for 5-6 weeks and at this time are being attributed to his COVID infection. Patient on HFNC with 100% FiO2. Also tolerating Remdesivir well and started convalescent plasma. Will be following MATH+ Protocol (COVID protocol), so started ascorbic acid, Louie D, zinc, thiamine, switched from decadron 6mg daily to methylprednisolone 1x 80mg loading followed by 20mg q6H. OBJECTIVE Temp: [97.8 ??F (36.6 ??C)-98.9 ??F (37.2 ??C)] 97.9 ??F (36.6 ??C) Pulse: [72-110] 81 Resp: [17-29] 17 BP: (108-177)/(55-143) 114/71 O2 %: [80 %-100 %] 100 % Intake/Output Summary (Last 24 hours) at 03/11/2020 0947 Last data filed at 03/11/2020 0600 Gross per 24 hour Intake 1627.74 ml Output 4500 ml Net -2872.26 ml Date 03/10/20 07 - 03/11/20 0659 03/11/20 07 - 03/12/20 0659 Shift 4959-6934 2622-0890 24 Hour Total 1474-0903 1001-5304 24 Hour Total INTAKE I.V.(mL/kg/hr) 1325.6(0.9) 302.2(0.2) 1627.7(0.6) Shift Total(mL/kg) 1325.6(11.2) 302.2(2.6) 1627.7(13.9) OUTPUT Urine(mL/kg/hr) 3200(2.3) 1600(1.1) 4800(1.7) Shift Total(mL/kg) 3200(27.1) 1600(13.7) 4800(41) NET -1874.4 -1297.8 -3172.3 Weight (kg) 117.9 117 117 117 117 117 Physical Exam: Dr. Yun examined Labs CBC: Recent Labs Component Name 03/11/20 0033 03/10/20 0059 03/09/20 0045 WBC 15.4* 17.7* 16.8* HGB 9.2* 9.7* 9.7* BMP: Recent Labs Component Name 03/11/20 0033 03/10/20 0059 03/09/20 0554 NA 138 137 140 CL 101 103 103 CO2 25 22 27 BUN 20 17 19 CREATININE 0.8 0.7 1.0 Recent Labs Component Name 03/11/20 0033 03/10/20 0059 03/09/20 0554 03/09/20 0045 CALCIUM 8.6 7.9* 8.0* - PHOS 3.6 2.9 - 2.4 LFT: Recent Labs Component Name 03/11/20 0033 03/10/20 0059 03/09/20 0554 PROT 5.4* 5.1* 5.3* ALB 1.9* 1.7* 1.8* ALKPHOS 125 152* 164* AST 21 48* 139* ALT 79* 120* 165* Coagulation: Recent Labs Component Name 03/06/20 1816 02/27/20 2349 02/27/20 0411 09/09/19 1242 PT 14.7 14.2 16.2* 12.9 INR 1.2 1.1 1.3 1.0 PTT 26.0 - 37.9 27.4 Cardiac markers: Recent Labs Component Name 03/03/20 1247 TROPONINI <0.010 ASSESSMENT & PLAN Neurological #Sedation, resolved Titrated propofol & precedex and extubated 03/08 Patient is awake & following commands this morning, tolerating Bipap and will be transitioned to [facility] today - Monitor mental status every hour and notify MD if any changes - Fall precautions, Seizure precautions, HOB elevated Cardiovascular: JUSTIN Pulmonary: #AHRF #Hx of COVID (+) #B/l pulmonary infiltrates DDx: Infection, inflammation, medication induced pneumonitis. COVID+ still, Unsure if this acute infx vs residual genetic material from initial infection. Discontinued prednisone 03/08 and started dexamethesone for concern for inflammatory component/pneumonitis. We discontinued vanc and cem however due to his immunocompromised status and asplenic started him on ampicillin VK 03/09 for pneumococcal ppx.??Will continue to look out for other micro studies throughout the day. Plan: - continue dexamethasone 6mg. - SARS COVID w/ positive results 03/06 and 03/07. - bacterial, fungal, viral, PJP, COVID 19, cell counts, cytology all normal or negative results. -continue Remdesivir, continue watching LFTs for sideeffect -HFNC 100 FiO2, 65L flow rate -started convalescent plasma -Started Math+ Protocol --thiamine, ascorbic acid, louie D, zinc, ---1 x 80mg methylprednisolone, ---03/11 1800 start 20mg methyprednisolone q6h ---check CRP qDaily #OI PPx Bacterial held in setting of concerns for septicemia - PJP: Bactrim DS MWF - Viral: Valtrex 500mg BID - Titrate Fi O2 to the lowest needed to keep Sats > 88% - Keep HOP elevated 30 degrees, oral care, aspiration precautions GI: JUSTIN Renal: JUSTIN Electrolytes: Monitor chem 7 and Mg every 24 hours and replace Mg if less than1.8 or if K < 3.5 Endocrine: JUSTIN Monitor accucheck every 4 hours and use sliding scale to keep between glucose between 140 - 180 I.D.: #Fevers Probable COVID, still covering broadly at this time. Repeat COVID pending as there may be componentof material vs acute COVID. -BM results normal cellularity, bacterial, fungal or viral all negative both in sputum and blood - Tylenol prn. 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 BMT on board to help guide management. ?? #Hx of RIJ clot - home eliquis held, on lovenox 120mg BID.?? Transfusion Protocol: Hb < 7, Plt < 10 Musculoskeletal #Pain -tramadol q8h Lines: PIV, ETT Tube Prophylaxis: DVT prophylaxis: [] Lovenox 40mg , [] Lovenox 30mg, [] Sq Heparin GI prophylaxis: protonix Aspiration precautions with elevation of HOB by 30 degrees. Fluids: none Diet: Advance as tolerated Activity: Ad Kristi Disposition: ICU Monitoring Code: Full Code Please note, recommendations are not final until attested/co-signed by the attending physician. Anali Avery MD PGY-1, Internal Medicine 03/11/20 9:47 AM Associated attestation - John Garcia MD - 03/12/2020 10:26 PM CDT I have personally seen and examined the patient and reviewed the pertinent data. I have independently formulated a treatment plan. The treatment plan was discussed/conveyed with/to the MICU Team/Pulmonary Consult Team to execute the care plan. If written, please see my note for additional details, but if an independent note is not written, then I agree with the details of the attached note. Slow improvement. Continue support. John Garcia MD [facility] [employer] [facility] Division Pulmonary/Critical Care/Sleep Medicine Pager: [phone] * Shalini Segal MD - 03/11/2020 6:51 AM CDT Autologous Hematopoietic Stem Cell Daily Note: PATIENT IDENTIFIERS: JALIL LUIS is a 49 year old male who is Day +143 (Day 0 is 10/20/19) of an autologous peripheral blood stem cell transplant with a 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 INTERVAL HISTORY: - Pt is Awake and in bed this AM, afebrile overnight - States that he is feeling much better today - Reports that after his infusion of convalescent plasma that he was sweating heavily. Around 2029 this ceased and he fell asleep and slept through the night. - Pt taken off of bipap and switch to high flow 100% this AM>> SpO2 90-92% - While talking pt desat to mid 80's on high flow - LFT continue to down trend - Pt has been unable to eat dt bipap. States that he is hoping to eat today because he is hungry. ROS: A comprehensive review of systems was negative except for: as noted above MEDICATIONS FOR CURRENT ENCOUNTER: SCHEDULED MEDICATIONS: 0.9% NaCl injection 3 mL, Intracatheter, q8h albuterol HFA (PROVENTIL;VENTOLIN;PROAIR) 108 (90 Base) MCG/ACT inhaler 2 puff, Inhalation, q4h artificial tears ophthalmic ointment, Each Eye, q8h dexamethasone (DECADRON) tablet 6 mg, Oral, QDAY enoxaparin (LOVENOX) injection 120 mg, Subcutaneous, q12h escitalopram (LEXAPRO) tablet 10 mg, Oral, QDAY pantoprazole EC (PROTONIX) tablet 40 mg, Oral, QDAY penicillin V potassium (VEETIDS) solution 250 mg, Oral, q12h remdesivir 100 mg in 0.9% NaCl IV 250 mL infusion, Intravenous, q24h rOPINIRole (REQUIP) tablet 0.25 mg, Oral, AT BEDTIME traMADol (ULTRAM) tablet 50 mg, Oral, q8h valACYclovir (VALTREX) tablet 500 mg, Enteral Tube, BID [COMPLETED] furosemide (LASIX) injection 20 mg, Intravenous, Once ?? [START ON 03/13/2020] sulfamethoxazole-trimethoprim (BACTRIM DS; SEPTRA DS) 800-160 MG tablet 1 tablet, Oral, MON, WED AND FRI ?? CONTINUOUS MEDICATIONS: PRN MEDICATIONS: 0.9% NaCl injection 1-10 mL, Intracatheter, PRN acetaminophen (TYLENOL) tablet 325 mg, Oral, q4h PRN magnesium sulfate 2 g in 50 mL bolus, Intravenous, PRN ondansetron (disintegrating) (ZOFRAN ODT) tablet 4 mg, Oral, q8h PRN ondansetron (ZOFRAN) injection 4 mg, Intravenous, q8h PRN prochlorperazine (COMPAZINE) injection 10 mg, Intravenous, q6h PRN ?? prochlorperazine (COMPAZINE) tablet 5 mg, Oral, q8h PRN VITALS: Vitals: 03/11/20 0500 03/11/20 0600 03/11/20 0612 03/11/20 0630 BP: 145/77 110/63 Pulse: 80 72 79 Resp: 24 22 Temp: 97.9 ??F SpO2: 91% 96% 97% 92% Weight: Height: Wt Readings from Last 3 Encounters: 03/11/20 117 kg (257 lb 15 oz) 02/26/20 120.2 kg (265 lb) 11/15/19 123.4 kg (272 lb) Date 03/10/20699 - 03/11/20 0659 03/11/20699 - 03/12/20 0659 Shift 8098-5266 2873-4967 24 Hour Total 3803-9614 0337-9536 24 Hour Total INTAKE I.V.(mL/kg/hr) 1325.6(0.9) 302.2 1627.7 Shift Total(mL/kg) 1325.6(11.2) 302.2(2.6) 1627.7(13.9) OUTPUT Urine(mL/kg/hr) 3200(2.3) 1600 4800 Shift Total(mL/kg) 3200(27.1) 1600(13.7) 4800(41) NET -1874.4 -1297.8 -3172.3 Weight (kg) 117.9 117 117 117 117 117 PHYSICAL EXAM: Physical Examination: General appearance - alert, well appearing, and in no distress and oriented to person, place, and time Mental status - alert, oriented to person, place, and time, normal mood, behavior, speech, dress, motor activity, and thought processes PIV - dressing intact, no redness or swelling noted LABS: Recent Labs Component Name 03/11/20 0033 03/10/20 0059 03/09/20 0045 03/08/20 0023 WBC 15.4* 17.7* 16.8* 10.8* RBC 3.24* 3.39* 3.34* 3.53* HGB 9.2* 9.7* 9.7* 10.1* HCT 26.4* 28.1* 28.1* 30.6* MCV 81.5 82.9 84.1 86.7 MCH 28.4 28.6 29.0 28.6 MCHC 34.8 34.5 34.5 33.0 PLTCOUNT 218 231 268 238 RDWSD 48.5 49.1 51.3* 55.3* RDW 16.7* 16.7* 17.2* 19.5* MPV 12.6 11.4 12.8 - NRBCABS 0.05* 0.09* 0.15* 0.11* NRBCAUTOPCT 0.3* 0.5* 0.9* 1.0* NEUTPCT - 92.8* 85.1* 87.4* LYMPHSPCT - 4.2* 11.2* 7.6* MONOPCT - 2.2* 2.6* 3.7 EOSPCT - 0.0 0.0 0.0 BASOPCT - 0.1 0.1 0.1 IMMGRANSPCT - 0.7 1.0 1.2* NEUTABS 14.94* 16.4* 14.3* 9.5* LYMPHS 0.31* 0.7* 1.9 0.8 MONO 0.15 0.38 0.44 0.40 EOS - 0.00 0.00 0.00 BASO - 0.02 0.01 0.01 TOTCELLCNT 100 - - - Recent Labs Component Name 03/11/20 0033 03/10/20 0059 03/09/20 0554 BUN 20 17 19 CREATININE 0.8 0.7 1.0 NA 138 137 140 POTASSIUM 3.8 4.1 3.5 CL 101 103 103 CO2 25 22 27 CALCIUM 8.6 7.9* 8.0* PROT 5.4* 5.1* 5.3* ALB 1.9* 1.7* 1.8* TBILI 0.5 0.6 0.9 ALKPHOS 125 152* 164* ALT 79* 120* 165* AST 21 48* 139* ANIONGAP 16 16 14 BCR 25* 24* 19 OSMOLALITY 289 285 291 AGRATIO 0.5* 0.5* 0.5* EGFR >60 >60 >60 Recent Labs Component Name 03/11/20 0033 03/10/20 0059 03/09/20 0554 MAGNESIUM 1.9 2.0 2.6 Recent Labs Component Name 03/11/20 0033 03/10/20 0059 03/09/20 0045 PHOS 3.6 2.9 2.4 Pathology: CD4: see epic 7/26 BMBX (03/03/20): Path- Normocellular marrow with maturing trilineage hematopoiesis. No morphologic evidence of residual/recurrent non-Hodgkin lymphoma. Flow-NISHA Cyto- pending FISH- pending Infectious Workup Covid swap (03/07/20): positive Bronch (03/06/20): COVID +, otherwise negative. Path pending COVID (03/04/20):negative COVID (03/03/20): negative PJP PCR: negative Beta D Glucan: pending Blastomyces: ND Histoplasma blood: negative Histoplasma urine: negative Asperigillus: negative Toxoplasma PCR: negative Bartonella IgG: negative Bartonella IgM: negative Cryptococcus: Negative Urine Legionella: Negative Last BC x2 (03/09): Pending UA with culture (02/25/20): NGTD RVP (02/25/20): ND Covid swab (02/25/20): negative Covid IgG (02/25/20): Negative RADIOLOGY: PCX (03/05/20): Increase in diffuse patchy airspace opacities in bilateral lungs concerning for multifocal pneumonia. Small left pleural effusion is suggested. There is no pneumothorax. The cardiomediastinal silhouette is Normal Venous Duplex (03/03/20): Negative for DVT CT Chest (03/02/30): 1. Altered distribution of prominent geographic groundglass opacities within the upper and lower lung zones bilaterally. This suggests ongoing inflammatory or infectious process, rather than discrete areas of progressive fibrosis. Areas of groundglass can progress to fibrosis, therefore continued follow-up is advised.2. Re-demonstration of nonocclusive thrombus within the left brachiocephalic vein which extends to the superior vena cava CT C/A/P (02/26/20): 1. Patchy, peripheral predominant groundglass opacities in [...] acute process identified in the abdomen or pelvis ECHO (03/02/20): Limited echo to assess left ventricular function. There is concentric remodeling of the left ventricle. The left ventricle is normal size. Left ventricular segmental wall motion is normal. Left ventricular systolic function is normal with an ejection fraction by Biplane Method of Discs of 68 %. ASSESSMENT/PLAN: JALIL LUIS is a 49 year old male, who is Day +143 (Day 0 is 10/20/19) of an autologous peripheral blood stem cell transplant with a 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 SYSTEMS: Marginal Zone Lymphoma in CR2 pre-transplant Schema: 5A Prep: BEAM, Cell count 10.4 x 10^6 CD34+cells/kg in 5 bags; day [address] A/P -- BMBx completed (03/03) -Transfusion threshold: Hgb > 7; Plt > 10; CMV +, transfusion pre meds: none needed -Engraftment: ANC day +9 (10/29/19); plt engraftment 11/03/19 (day +14) OI prophylaxis: Bacterial:??Hold Pen VK d/t escalation of antibiotics PJP:??Bactrim DS MWF Viral: Valtrex 500mg BID Covid -tested positive early January, asymptomatic at that time -Inflammatory markers Q 48hrs, Last done 03/10 - mostly elevated -Covid from bronch 03/07 and PROVISIONING ANALYST swab 03/07/ came back positive -remdesivir started 03/08 - convalescent plasma, patient refused initially and is now agreeable to gettting it today (03/10/20). - Starting MATH + protocol today- Solumedrol 80 mg once then 20 mg q 6 hours and vitamins>>appreciate MICU progress note Persistent Fevers -Afebrile overnight -BC Q24 when febrile - IgG - 209 - plan to replace when stable - CT C/A/P, results above - ID consult, appreciate recs - Completed 7D course of cem and vanco on 03/08/20 Hypoxia - Bipap overnight>>switched HFNC in AM -intubated 03/06/20 -03/08/20 -pred 90mg (1mg/kg) PO daily for possible BCNU pneumonitis 03/05-03/08/20 -Dex 6mg daily -Last CT chest 03/02/20, see above -03/03 BNP 25 and ECHO (03/03) negative -Consult Pulm; Bronch on 03/06/20 Elevated LFT's -LFT's trending down -hold Tylenol if possible -follow closely Headaches - denies any today - tramadol 50 mg q8h - Neuro consult >LP completed 03/01. Results negative for meningitis Right IJ venous clot 09/27/19 -on Lovenox 120 mg Q12H while inpt - previously on Eliquis 5 mg BID Pertinent Medical History: Anxiety/Depression- Lexapro 10 mg daily Restless Leg Syndrome - Requip 0.25 mg QHS Discharge Planning: Patients preferred contact information: cell Caregiver: sister, girlfriend Preferred D/C Pharmacy: [facility] Intended lodging: home Referring provider: Cesar Tavares Disposition: Remain on 6ICU Christina Espinoza TALENT ACQUISITION OPERATIONS MANAGER- Blood and Bone Marrow Transplant Program [facility] I personally evaluated and examined Mr. Jalil Luis. I confirmed the alfonso elements of of history and physical examination. I also discussed the assessment and plan in detail with the team on rounds and with the patient. I made some modifications to the above note. I fully concur with the above assessment and plan. Ezio Segal MD External Grinder Tender Department of Internal Medicine Division of Hematology Oncology * Kristina Field, PT - 03/10/2020 4:20 PM CDT [facility] Physical Medicine and Rehabilitation PhysicalTherapy Progress Note Patient: Jalil Luis Med Record Number: [id number] Date of : 1970 Age: [age] year old Co-Tx w/ OT Patient is COVID-19 positive. PPE donned by therapist throughout session - disposable gown, gloves, N95 mask, eye protection, faceshield, hair net, alva cover and shoe covers. Discharge Recommendation: Patient should be able to return home when medically cleared by physicianteam. Therapy will continue to treat patient while in hospital. See current amount of assist neededbelow. Subjective: I feel better than yesterday. Pt agreeable to PT session. Patient currently using no assistive device. Mental Status: Alert and oriented X4; 100% command follow At start of therapy session, patient found in bed and with no alarm. Pain: Patient has 0 out of 10 pain reported. No follow up indicated. Weight Bearing Status: BLE WBAT Mobility: Rolling: not tested Supine to Sit:Stand By Assist Sit to Supine: not tested Sit to Stand:Stand By Assist Bed to Chair: Minimal assist Gait: Device:none Assistance: Minimal assist Distance: 3 ft to chair Deviations: shuffled steps with decreased step length/height with pt demonstrating forward flexed posture throughout; no LOB Balance: Static Sitting: good Dynamic sitting: good Static Standing: fair plus Dynamic Standing: fair plus Stairs : NT Vitals: (*Assess the 3 levels of oxygen saturations both for room air and 02 unless rest on room air is 88% or less). Rest BP: 136/89 HR: 110 SpO2 ?? SpO2 95% 89% (after repositioning) Room Air ?? L 02 ?? HFNC 100% Fi02 Ex/Gait/Activity Without 02 BP: ?? HR: ?? SpO2 ?? Room Air ?? Ex/Gait/Activity With 02 BP: ?? HR: 130 ? 130 ? 135 ? 120 SpO2 60-64% 70% (after 2 mins sitting) ? 93-95% (still sitting EOB) ?? 86% (after bed to chair transfer w/ Bipap). ?? 91-92% after 4-5 mins of L 02 HFNC 100% Fi02 ?? Switched to Bipap 100% and 02 improved ?? Post Activity BP: 135/81 HR: 113 SpO2 ?? SpO2 94% L 02 ?? Room Air Bipap 100% Observations: Spoke w/ RT Kiera prior to seeing patient. She and RN Dian colmenares w/ plan. Pt is able to move his body well, but his endurance con't to be very poor. Needed to switch to bipap (from HFNC) in order to keep his 02 at an appropriate level. Pt was never diaphoretic and never had blue lips or fingers. Did state once his 02 his low 60s that he was feeling SOB. Activity Tolerance: Patient's activity tolerance: poor Treatment/therapeutic Exercise: bed mobility training; sit <>stand transfer training; gait training; endurance training; vitals monitoring; static sitting balance tolerance at EOB; pt educationon PLB and deep breathing throughout Patient/Family Teaching: Gait and Mobility Patient demonstrated Good understanding of instructions given. Short Term Goals: Goal Formation With patient Patient will perform bed mobility: Independent Patient will transfer sit to/from stand: Independent (updated) Patient will transfer bed to/from chair: Stand By Assist Patient will ambulate 50 feet with Stand By Assist and appropriate AD Patient will ascend/descend 10 steps: Stand By Assist and hand rail assist Patient will perform home exercise program independently ?? Family Nurse Practitioner Goal(s): Patient to be independent/baseline with functional mobility and self care and be able to safely discharge to prior level of care Update Treatment Plan: Pt to continue with current PT POC in order to increase safety and independence and continue to progress towards PT goals. If patient is discharged from the facility, this note serves as a discharge note if further physical therapy visits did not occur. Following therapy session, patient left in patient bedside chair, with call light within reach and with RN aware. Pt left on BiPAP at 100% FiO2 with RN aware. Kristina Field, PT 03/10/2020 * Anali Avery MD - 03/10/2020 1:18 PM CDT CCU PROGRESS NOTE Name: Jalil Luis Admit Date and Time: 02/25/2020 9:41 PM LOS: LOS: 14 days Rm/Bed: 641/641-01 Hospital Day: 14 BRIEF HOSPITAL COURSE: per Joe Dennison MD 49 year oldmale [facility] 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 Recent SARS-CoV-2 (+) in the beginning of January as a routine check up. Progressively short of breath and fever 2-3 weeks later and admitted to the hospital 02/24??with complaints of low grade fevers, moderate to severe headache, photophobia, and neck pain x2 weeks. LP on 03/01 with negative findings. On March 04, febrile >102, transitioned to??HFNC 40L CT chest noted worsening GGO s/p vanc, cefepime. ?? Patient underwent bronchoscopy with BAL, brushing, transbronchial biopsy, sent bacterial, fungal, viral, PJP, COVID 19, cell counts, cytology. Started on prednisone per BMT service. Patient was intubated in the bronch suite an transferred to the MICU. COVID+ from bronch. Pt was extubated 03/08 and agreed to Remdesivir however did not want convalescent plasma. Predinisone was discontinued and started on dexamethasone 6mg q24h PO. Vanc and Meropenem were discontinued and ampicillin VK started sinceasplenic. Convalescent plasma was agreed to on 03/10. SUBJECTIVE INTERVAL HISTORY: Patient continues to have fever with Tmax 101.9 F overnight however his fevers have been occurring for 5-6 weeks and at this time are being attributed to his COVID infection. Patient did not tolerate HFNC well and was transitioned to BiPAP with FiO2 100% overnight. Will tryHFNC again today. Also tolerating Remdesivir well and will start convalescent plasma. OBJECTIVE Temp: [97.8 ??F (36.6 ??C)-100.3 ??F (37.9 ??C)] 98.9 ??F (37.2 ??C) Pulse: [85-116] 110 Resp: [14-29] 29 BP: (110-161)/(59-91) 139/87 O2 %: [70 %-100 %] 100 % Intake/Output Summary (Last 24 hours) at 03/10/2020 1318 Last data filed at 03/10/2020 1244 Gross per 24 hour Intake 3000.64 ml Output 3575 ml Net -574.36 ml Date 03/09/20699 - 03/10/2065803/10/20699 - 03/11/20 0659 Shift 2294-3363 2772-6566 24 Hour Total 2150-3807 0965-7313 24 Hour Total INTAKE P.O. 440 300 740 I.V.(mL/kg/hr) 1860.7(1.3) 1422.9(1) 3283.6(1.2) 1077.8 1077.8 Shift Total(mL/kg) 2300.7(19.2) 1722.9(14.6) 4023.6(34.1) 1077.8(9.1) 1077.8(9.1) OUTPUT Urine(mL/kg/hr) 1000(0.7) 2275(1.6) 3275(1.2) 650 650 Shift Total(mL/kg) 1000(8.3) 2275(19.3) 3275(27.8) 650(5.5) 650(5.5) NET 1300.7 -552.1 748.6 427.8 427.8 Weight (kg) 120.1 117.9 117.9 117.9 117.9 117.9 Physical Exam: Dr. Yun examined Labs CBC: Recent Labs Component Name 03/10/20 00503/09/20 0045 03/08/20 0023 WBC 17.7* 16.8* 10.8* HGB 9.7* 9.7* 10.1* BMP: Recent Labs Component Name 03/10/20 0059 03/09/20 0554 03/08/20 2140 NA 137 140 141 CL 103 103 103 CO2 22 27 24 BUN 17 19 19 CREATININE 0.7 1.0 0.9 Recent Labs Component Name 03/10/20 0059 03/09/20 0554 03/09/20 0045 03/08/20 2140 03/08/20 0223 CALCIUM 7.9* 8.0* - 7.7* 8.0* PHOS 2.9 - 2.4 - 3.4 LFT: Recent Labs Component Name 03/10/20 0059 03/09/20 0554 03/08/20 0223 PROT 5.1* 5.3* 5.2* ALB 1.7* 1.8* 1.7* ALKPHOS 152* 164* 74 AST 48* 139* 17 ALT 120* 165* 47 Coagulation: Recent Labs Component Name 03/06/20 1816 02/27/20 2349 02/27/20 0411 09/09/19 1242 PT 14.7 14.2 16.2* 12.9 INR 1.2 1.1 1.3 1.0 PTT 26.0 - 37.9 27.4 Cardiac markers: Recent Labs Component Name 03/03/20 1247 TROPONINI <0.010 ASSESSMENT & PLAN Neurological #Sedation, resolved Titrated propofol & precedex and extubated 03/08 Patient is awake & following commands this morning, tolerating Bipap and will be transitioned to HFNC today - Monitor mental status every hour and notify MD if any changes - Fall precautions, Seizure precautions, HOB elevated Cardiovascular: JUSTIN Pulmonary: #AHRF #Hx of COVID (+) #B/l pulmonary infiltrates DDx: Infection, inflammation, medication induced pneumonitis. COVID+ still, Unsure if this acute infx vs residual genetic material from initial infection. Discontinued prednisone 03/08 and started dexamethesone for concern for inflammatory component/pneumonitis. We discontinued vanc and cem however due to his immunocompromised status and asplenic started him on ampicillin VK 03/09 for pneumococcal ppx.??Will continue to look out for other micro studies throughout the day. Plan: - continue dexamethasone 6mg. - SARS COVID w/ positive results 03/06 and 03/07. - bacterial, fungal, viral, PJP, COVID 19, cell counts, cytology all normal or negative results. -continue Remdesivir, continue watching LFTs for sideeffect -transition from bipap to HFNC -start convalescent plasma -stop IVfluids and doing trial lasix -try to transition off of Bipap -ordered Chest xray #OI PPx Bacterial held in setting of concerns for septicemia - PJP: Bactrim DS MWF - Viral: Valtrex 500mg BID - Titrate Fi O2 to the lowest needed to keep Sats > 88% - Keep HOP elevated 30 degrees, oral care, aspiration precautions GI: JUSTIN Renal: JUSTIN Electrolytes: Monitor chem 7 and Mg every 24 hours and replace Mg if less than1.8 or if K < 3.5 Endocrine: JUSTIN Monitor accucheck every 4 hours and use sliding scale to keep between glucose between 140 - 180 I.D.: #Fevers Probable COVID, still covering broadly at this time. Repeat COVID pending as there may be componentof material vs acute COVID. -BM results normal cellularity, bacterial, fungal or viral all negative both in sputum and blood - Tylenol prn. 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 BMT on board to help guide management. Plan: - continue dexamathasone 6mg today. ?? #Hx of RIJ clot - home eliquis held, on lovenox 120mg BID.?? Transfusion Protocol: Hb < 7, Plt < 10 Musculoskeletal #Pain -tramadol q8h Lines: PIV, ETT Tube Prophylaxis: DVT prophylaxis: [] Lovenox 40mg , [] Lovenox 30mg, [] Sq Heparin GI prophylaxis: protonix Aspiration precautions with elevation of HOB by 30 degrees. Fluids: none Diet: Advance as tolerated Activity: Ad Kristi Disposition: ICU Monitoring Code: Full Code Please note, recommendations are not final until attested/co-signed by the attending physician. Anali Avery MD PGY-1, Internal Medicine 03/10/20 1:18 PM Associated attestation - Nilo Yun MD - 03/10/2020 3:59 PM CDT I have seen and examined the patient with the resident and I agree with the findings and plan of care as documented by the resident. Date of Service: 03/10/2020.. Nilo Yun MD * Tiffanie Rebolledo RN - 03/10/2020 11:48 AM CDT Patient remains int he ICU at this time. Patient was transitioned from BIPAP to high flow Nasal cannula. Patient was transferred to the ICU after bronch on 03/06. Case management will continue to follow for needs and discharge planning. Patient with history of H/o BMT (10/29/19) with treatment with BEAM (BCNU, etoposide, cytarabine and melphalan) and Recent SARS-CoV-2 (early January 2020, repeated x3 negative, last negative 03/04/20). Tiffanie Rebolledo RN 03/10/2020 11:53 AM [phone] * Jayson Friedman MD - 03/10/2020 11:48 AM CDT Images from the original note were not included. [facility] Progress Note Admitted on: 02/25/2020 9:41 PM Hospital stay: Day 14 Room: [address] [place] [address] Primary Team: Attending: Nilo Yun MD Reason for ID consultation: recent??COVID-19 positive on 01/07/2020 per patient report, fever over the past 2 weeks. 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 ID is called for consult regarding management of recent positive??COVID- 19 and fever. LP on 03/01 with negative finding. SUBJECTIVE & INTERVAL HISTORY: Fever is coming down. Required more oxygen with FiO2 100%. Still desaturated during PT. Current Abx Penicillin V po 03/08- Valacyclovir?? remdesivir 03/08- Prior Abx: Penicillin VK PO ??Cefepime (02/25/20 - 03/03 ) Iv meropenum 03/03- 03/08 Iv vancomycin 02/25-??8 Inpatient Medications ??? 0.9% NaCl IV ??? 0.9% NaCl 3 mL Intracatheter q8h ??? albuterol HFA 2 puff Inhalation q4h ??? artificial tears Each Eye q8h ??? dexamethasone 6 mg Oral QDAY ??? enoxaparin 120 mg Subcutaneous q12h ??? EPINEPHrine ??? lidocaine ??? lidocaine viscous ??? pantoprazole EC 40 mg Oral QDAY ??? penicillin V potassium 250 mg Oral q12h ??? remdesivir ([id number]) infusion 100 mg Intravenous q24h ??? trimethoprim-sulfamethoxazole 160 mg Intravenous MON, WED AND FRI ??? traMADol 50 mg Oral q8h ??? valACYclovir 500 mg Enteral Tube BID 0.9% NaCl IV, , Last Rate: 100 mL/hr at 03/10/20 0611 PRN Medications SALINE LOCK, INSERT AND MAINTAIN AND 0.9% NaCl AND 0.9% NaCl ??? acetaminophen ??? magnesium sulfate ??? ondansetron (disintegrating) ??? ondansetron ??? prochlorperazine ??? prochlorperazine OBJECTIVE: Vital Signs: BP 140/74 Pulse 92 Temp 99.4 ??F (37.4 ??C) (Oral) Resp 18 Ht 5' 7.01 (1.702 m) Wt 259 lb 14.8 oz (117.9 kg) SpO2 94% BMI 40.7 kg/m2 Temp (24hrs), Av.1 ??F (37.3 ??C), Min:97.8 ??F (36.6 ??C), Max:100.3 ??F (37.9 ??C) I/O: Intake/Output Summary (Last 24 hours) at 03/10/2020 1148 Last data filed at 03/10/2020 1002 Gross per 24 hour Intake 4831.35 ml Output 3225 ml Net 1606.35 ml Physical Exam: General: on BIPAP Neck: Supple, no LAD, no JVD, trachea midline Lungs:coarse BS bilateraly Heart: RRR, normal S1 and S2, no murmur Abdomen: Soft, non-distended, non-tender, +BS Neurologic:moving four extremities Extremities: No clubbing, cyanosis, or edema Lines: PIV LABS CBC: Recent Labs Component Name 03/10/20 0059 03/09/20 0045 03/08/20 0023 WBC 17.7* 16.8* 10.8* RBC 3.39* 3.34* 3.53* HGB 9.7* 9.7* 10.1* HCT 28.1* 28.1* 30.6* MCV 82.9 84.1 86.7 BMP: Recent Labs Component Name 03/10/20 0059 03/09/20 0554 03/08/20 2140 03/08/20 0223 NA 137 140 141 144 CL 103 103 103 108* CO2 BUN 14 CREATININE 0.7 1.0 0.9 0.9 ALB 1.7* 1.8* - 1.7* PROT 5.1* 5.3* - 5.2* estimated creatinine clearance is 156.7 mL/min (based on SCr of 0.7 mg/dL). LFTs: Recent Labs Component Name 03/10/20 0059 03/09/20 0554 03/08/20 0223 03/07/20 0005 03/06/20 1816 03/05/20 2353 03/04/20 2327 03/03/20 2345 03/03/20 0014 03/01/20 2352 02/29/20 2334 02/29/20 0012 02/27/20 2349 02/27/20 0411 02/26/20 0042 11/15/19 0911 11/11/19 1231 11/04/19 0858 11/01/19 0909 10/30/19 1115 10/29/19 0002 10/28/19 0000 10/27/19 0007 10/26/19 0012 10/25/19 0013 10/24/19 0015 10/23/19 0031 10/22/19 0015 10/20/19 2359 10/20/19 0041 10/19/19 0021 10/17/19 2343 10/17/19 0020 10/16/19 0002 10/15/19 0019 10/13/19 2319 10/13/19 0951 09/30/19 1115 09/09/19 1242 08/26/19 1345 08/19/19 0542 08/18/19 0555 07/26/19 1248 06/28/19 1351 06/09/19 1341 05/24/19 1206 03/22/19 1500 ALKPHOS 152* 164* 74 75 73 81 90 83 82 86 87 89 97 109 110 102 108 128 124 119 102 95 84 69 72 64 64 73 77 80 82 86 83 90 104 126 137 155* 108 108 68 65 74 63 70 65 125 ALT 120* 165* 47 69* 74* 93* 70* 65* 90* 94* 95* 40 29 29 31 22 29 42 47 48 43 54 53 46 56* 68* 77*103* 122* 117* 137* 76* 70* 40 33 49 46 58* 36 48 35 40 68* 31 30 31 22 AST 48* 139* 17 21 28 47* 39* 24 31 29 59* 26 22 22 29 15 18 26 25 27 14 18 17 12 12 14 19 23 50* 28 56* 25 29 19 15 21 20 23 20 31 29 31 31 19 22 19 20 Results for JALIL LUIS ( ) as of 03/01/2020 12:20 Ref. Range 03/01/2020 10:39 03/01/2020 10:48 Glucose,CSF-STAT Latest Ref Range: 40 - 70 mg/dL 81 (H) Protein CSF Latest Ref Range: 15 - 45 mg/dL 20 Xanthochromia Fluid Latest Ref Range: Negative Negative Volume Fluid Latest Units: mL 3.0 Color Fluid Latest Ref Range: Colorless, Straw Colorless Clarity Fluid Latest Ref Range: Clear Clear Differential Unknown Manual Differential to follow. RBC Calculation Latest Units: /uL 1 WBC Calculation Fluid Latest Ref Range: 0 - 5 /uL 1 Lymphocytes % Fluid Latest Units: % 46 Monocytes % Fluid Latest Units: % 50 Macrophages % Fluid Latest Units: % 4 Results for JALIL LUIS ( ) as of 03/06/2020 11:04 Ref. Range 03/03/2020 12:47 LDH Total Latest Ref Range: 125 - 243 Units/L 468 (H) C-Reactive Protein Latest Ref Range: <=0.5 mg/dL 9.1 (H) Fibrinogen Clauss Latest Ref Range: 200 - 400 mg/dL 584 (H) D-Dimer Quantitative Latest Ref Range: <=0.50 mcg/mL FEU 1.20 (H) Results for JALIL LUIS ( ) as of 03/08/2020 12:59 Ref. Range 03/08/2020 02:23 C-Reactive Protein Latest Ref Range: <=0.5 mg/dL 20.0 (H) Osmolality Calculated Latest Ref Range: 270 - 300 mOsm/kg 298 LDH Total Latest Ref Range: 125 - 243 Units/L 518 (H) MICROBIOLOGY: RESPIRATORY PATHOGEN PANEL BY PCR 02/25/20: Not detected ?? SARS-COV-2 (COVID-19) 02/25/20, 02/26. 03/04: negative 03/06 positive 03/07 positive ?? 02/25/20, : COVID-19 Ab IgG: negative ?? 02/26/20: CMV PCR Quant Blood: negative EBV PCR Quant Blood: negative ADENOVIRUS PCR Quant Blood: in process Aspergillus galactomannon Ag negative Toxoplasma IgM/IgG negative?? Toxoplasma PCR pending Microbiology: Blood culture 02/25/20: x 2 no growth ??02/26/20: x 2 no growth Blood AFB culture pending Blood fungal culture pending 03/02 negative 03/03: negative 03/08 pending 03/09 pending Urine culture 02/25/20: in process UA: WBC 0-5 03/08 no growth Cryptococcal Ag negative 02/25 Urine legionella Ag negative Blood PJP PCR non machine wiper Beta D glucan pending HISTOPATHOLOGY: Cytology 03/03 bone marrow Flow cytometry Bone marrow, flow cytometric immunophenotypic analysis: - No evidence of non-Hodgkin lymphoma or high-grade myeloid neoplasm. Pathology Final Diagnosis Bone marrow, aspirate, clot section, and core biopsy: - Normocellular marrow with maturing trilineage hematopoiesis. - No morphologic evidence of residual/recurrent non-Hodgkin lymphoma. - See description. ?? Peripheral blood smear: - Normal white blood cell count with absolute neutrophilia. - Normochromic normocytic anemia. - See description. Bronchial alveolar lavage, cytology: 03/06 - Negative for malignancy - Macrophages, bronchial cells, and mucin - GMS stain is negative for fungal elements Lung tissue biopsy - Reactive alveolar parenchyma with mild chronic inflammation IMAGING & PROCEDURE: Pertinen images independently reviewed; report in chart. CT chest/abd/pelvis 02/25 1. Patchy, peripheral predominant groundglass opacities in [...] process identified in the abdomen or pelvis. ?? MRI brain 02/25 No evidence of acute intracranial findings. ?? CT chest 03/02 1. Altered distribution of prominent geographic groundglass opacities within the upper and lower lung zones bilaterally. This suggests ongoing inflammatory or infectious process, rather than discrete areas of progressive fibrosis. Areas of groundglass can progress to fibrosis, therefore continued follow-up is advised. ?? 2. 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 ?? CXR 03/05 ASSESSMENT & RECOMMENDATIONS: 1. Fever in an autologous peripheral blood stem cell transplant patient and splenectomy: likely 2ndto COVID-19 infection. DDx is broad including bacterial, fungal, viral and recurrent lymphoma. His BC negative. Very less likely 2nd to fungal infection. He is autologous transplant patient. So very less likely viral infection with negative respiratory pathogen panel. Negative COVID *3 in nasal pharyngeal swab. Positive COVID from BAL swab (send as nasal pharyngeal swab sample) and repeated nasalswab on 03/07. BAL COVID test is sent out, pending. And his last positive COVID is on 01/06. No contacthx after 01/13. Bone marrow biopsy negative for lymphoma S/p bronchoscopy on 03/06 and BAL cultures negative. Possible new 2nd time infection with new positive PCR result from nasal swab. Inflammation markers are worsen today with worsen if FiO2. 2. Headache, associated with photophobia and neck pain: Severe, duration ~2 weeks. MRI brain negative. Likely related to his COVID before. Less likely herpes encephalitis with negative MRI brain. Cryptococcus Ag negative. LP with normal WBC, protein, glucose. Meningitis is ruled out. 3. 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 4. 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 Recent??COVID-19 positive on 01/07/2020 per patient report: Not received any treatment or clinical trial for this). COVID-19 Ab IgG not detected may be related to low immune response secondary to his immunosuppressive condition. 6. Renal function: Estimated Creatinine Clearance: 138.1 mL/min (based on SCr of 0.8 mg/dL). 7. 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 Plan/Recommendations: ?? c/w remdesivir ?? One unit of convalescent plasma when patient is agreeable. ?? Check ferritin, LDH, d dimer, CRP, ESR every 48 hrs. ?? C/w dexamethasone 6 mg daily ?? C/w therapeutic Lovenox with high risk of VTE ?? C/w penicillin, valcyclovir po for prophylaxis ?? Viral culture is not available from commercial labs ?? - Follow CBC with manual diff, CMP, and complete urinalysis weekly (at minimum) while on IV antibiotics Primary team: hematology Case was discussed with Dr Damian. >35 minutes spent on the care of this patient. > 50% was spent in counseling and coordinationof care that included the patient and the primay team. Jayson Friedman M.D. Infectious Diseases fellow (Team 1) Pager [phone], cell phone [phone]. You can call or text me for communication. Associated attestation - Joce Damian DO - 03/10/2020 2:28 PM CDT I applied COVID19 protocol to the patient. The case was discussed the patient with the team. I reviewed the fellow's note and agree with the findings and assessment and plan except as noted below. Please see the fellow's note. New Onset Fever and Hypoxia: Febrile w/ increasing O2 requirements 03/02 - 02/03, currently extubated on high-flow and afebrile x 24h. Of note was on dexa from 02/25 - 03/01 and then steroids re-started 03/04. DDx -> CT Chest w/ worsening GGO as compared to admission: S/P 7 days of vanco and cefepime. Less likely aspiration as no AMS or vomiting. Urine legionella negative. Of notes worsening resp status and feverafter steroids have been stopped, ?inflammatory process. S/P bronch w/ BAL on 03/06; PJP/Nocardia/Muco r/Aspergillus/CMV/HHV6/Adenovirus PCR, GM negative, bacteria cx NG, and additional infectious workup pending. Pathology non-specific. Given the acuity of the symptoms less likely PJP, fungitell pending and serum PJP PCR negative. Given his underlying autologous tx, less likely adeno (serum PCR negative), HHV6, CMV, or fungal. ?cardiac component mariela in the setting of recent COVID however BNP WNL. Most recent echo 08/2019 w/ EF in mid 50s. BAL +robyn for COVID. DDx -> acute infection vs residual genetic material given initial infection reportedly on 01/07/20. COVID PROVISIONING ANALYST swab negative x 3, 4th positive; initially mildly elevated inflammatory dhillon which have worsened. Currently receiving remdesivir and has now agreed to convalescentplasma. Monitor inflammatory markers q48h. Unable to send BAL for COVID culture to a commercial labunfortunately as this would be able to confirm active infection. ?relapsed lymphoma mariela in the setting of dexa x 4 days and the extended period of fevers patient was having prior to admission. BMBx and flow unremarkable. BCx NGTD x 2 sets, UCx NGD UE and LE Dupplex consistent w/ chronic RIJ DVT Hx of COVID: Dx in beginning of January 2020, therefore constellation of current symptoms less likely related given prolonged timeline. Serology negative however he just recently underwent an autologoustherefore this is expected. CT Chest on admission w/ B/L GGO which may be consistent w/ COVID. Fever on Admission: Resolved. Previously on dexa + vanco/cefepime. DDx -> Resp status stable on RA: CT Chest on admision w/ B/L GGO likely consistent w/ recent COVID infection however S/P 7 days of vanco/cefepime which would treat bacterial superimposed infections. RPP, GM, toxo, histo, blasto negative. COVID x 3 negative. COOPER w/ concerns of meningitis: S/P LP unremarkable for meningitis. CSF crypto and HSV negative. MRI Brain unremarkable. BCx NG Leukocytosis: Fluctuations. Initially 2/2 dexa and was improving however there was a pause in dexa treatment and has now been re-started which could explain the fluctuations recently * Inga Cortez, OT - 03/10/2020 10:16 AM CDT [facility] Physical Medicine and Rehabilitation Occupational Therapy Progress Note Patient: Jalil Luis Med Record Number: [id number] Date of : 1970 Age: [age] year old Co-Tx w/ PT Patient is COVID-19 positive. PPE donned by therapist throughout session - disposable gown, gloves, N95 mask, eye protection, faceshield, hair net, alva cover and shoe covers. Discharge Recommendation: Patient should be able to return home when medically cleared by physicianteam. Therapy will continue to treat patient while in hospital. See current amount of assist neededbelow. *PT IS NOT MEDICALLY READY TO DC HOME AT THIS TIME* Precautions: FALL[place] SAFETY *COVID-19 +* Subjective: I want to try. I do feel better than yesterday. At start of therapy session, patient found in bed and with no alarm. Pain: Patient has 0 out of 10 pain in body. Nurse notified. Activities of Daily Living Feeding:NT Grooming/Bathing: not tested --not appropriate given the switch to bipap during middle of session Upper Extremity Dressing: Stand By Assist Lower Extremity Dressing: Minimal assist --socks. Was going to attempt, but began to desat (see vitals section) so activity was stopped and OT completed the task Toileting/Transfers: not tested Mobility: Assist device: none Supine to/from Sit:Stand By Assist Sit to/from Stand: Stand By Assist Bed to/from Chair: Minimal assist--multiple lines and 02 management Functional Mobility: From bed to chair with Stand By Assist--therapist managed lines/Bipap only. Pthas good strength, but really poor endurance Splint Issued/Checked: none Splint Check Completed: N/A Balance: Static Sitting: good Dynamic Sitting: good Static Standing: good minus Dynamic Standing: good minus Vitals: Rest BP: 136/89 HR: 110 SpO2 SpO2 95% 89% (after repositioning) Room Air L 02 HFNC 100% Fi02 Ex/Gait/Activity Without 02 BP: HR: SpO2 Room Air Ex/Gait/Activity With 02 BP: HR: 130 130 135 120 SpO2 60-64% 70% (after 2 mins sitting) 93-95% (still sitting EOB) 86% (after bed to chair transfer w/ Bipap). 91-92% after 4-5 mins of L 02 HFNC 100% Fi02 Switched to Bipap 100% and 02 improved Post Activity BP: 135/81 HR: 113 SpO2 SpO2 94% L 02 Room Air Bipap 100% Observations: Spoke w/ RT Kiera prior to seeing patient. She and ROSEMARY colmenares w/ plan. Pt is able to move his body well, but his endurance con't to be very poor. Needed to switch to bipap (from HFNC) in order to keep his 02 at an appropriate level. Pt was never diaphoretic and never had blue lips or fingers. Did state once his 02 his low 60s that he was feeling SOB. Activity tolerance: poor--con't to have good strength, but his endurance is very poor. Desats quickly and easily. Cognitive/Perceptual: A&Ox4; pt is cooperative, pleasant, and follows 100% of commands. Not impulsive and good safety awareness. Treatment/Therapeutic Exercise: Treatment session this date focused on ADL training Functional transfer training Endurance training Bed mobility Energy conservation Safety awareness HEP training Patient/Family Teaching: Exercise, Gait, Mobility and Self care Equipment Issued: none Update Treatment Plan/Goals : Pt continues to benefit from skilled OT to improve independence with activities of daily living, increase strength, endurance, range of motion and decrease pain. Short Term Goals: Patient will perform grooming Standing at sink and With modified independence Patient will perform lower extremity dressing With modified independence Patient will perform toileting With modified independence Family Nurse Practitioner Goal:Patient to be independent/baseline with functional mobility and self care and be able to safely discharge to prior level of care If patient is discharged from the facility, this note serves as a discharge note if further occupational therapy visits did not occur. Following therapy session, patient left in patient bedside chair, with call light within reach, with Dian RILEY aware and with RN/CP rehab cues written on white board. Inga Cortez OT * Shalini Segal MD - 03/10/2020 7:53 AM CDT Autologous Hematopoietic Stem Cell Daily Note: PATIENT IDENTIFIERS: JALIL LUIS is a 49 year old male who is Day +142 (Day 0 is 10/20/19) of an autologous peripheral blood stem cell transplant with a 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 INTERVAL HISTORY: Awake and in bed this AM, afebrile overnight Slept well overnight, except desating to the 70's on HFNC, was switched to Bipap overnight. Now on HFNC and sats are in the low 90's. Pt gets weaned quickly especially with activity. Reported coughing with intermittently coughing up white mucous LFT's are down trending this AM. Spoke with Dr Apple early this AM, and agreed to taking the convalescent plasma therapy. Have not being eating but will want to eat today. ROS: A comprehensive review of systems was negative except for: as noted above MEDICATIONS FOR CURRENT ENCOUNTER: SCHEDULED MEDICATIONS: 0.9% NaCl injection 3 mL, Intracatheter, q8h albuterol HFA (PROVENTIL;VENTOLIN;PROAIR) 108 (90 Base) MCG/ACT inhaler 2 puff, Inhalation, q4h artificial tears ophthalmic ointment, Each Eye, q8h dexamethasone (DECADRON) tablet 6 mg, Oral, QDAY enoxaparin (LOVENOX) injection 120 mg, Subcutaneous, q12h pantoprazole EC (PROTONIX) tablet 40 mg, Oral, QDAY penicillin V potassium (VEETIDS) solution 250 mg, Oral, q12h remdesivir 100 mg in 0.9% NaCl IV 250 mL infusion, Intravenous, q24h sulfamethoxazole-trimethoprim (BACTRIM) 160 mg in dextrose 5 % 260 mL IVPB, Intravenous, MON, WED AND FRI ?? valACYclovir (VALTREX) tablet 500 mg, Enteral Tube, BID CONTINUOUS MEDICATIONS: ?? 0.9% NaCl infusion, Intravenous, Continuous PRN MEDICATIONS: 0.9% NaCl injection 1-10 mL, Intracatheter, PRN acetaminophen (TYLENOL) tablet 325 mg, Oral, q4h PRN magnesium sulfate 2 g in 50 mL bolus, Intravenous, PRN ondansetron (disintegrating) (ZOFRAN ODT) tablet 4 mg, Oral, q8h PRN ondansetron (ZOFRAN) injection 4 mg, Intravenous, q8h PRN prochlorperazine (COMPAZINE) injection 10 mg, Intravenous, q6h PRN prochlorperazine (COMPAZINE) tablet 5 mg, Oral, q8h PRN ?? traMADol (ULTRAM) tablet 50 mg, Oral, q6h PRN VITALS: Vitals: 03/10/20 0800 03/10/20 0900 03/10/20 0928 03/10/20 1000 BP: 143/82 125/59 140/74 Pulse: 89 91 92 Resp: 14 18 Temp: 99.4 ??F SpO2: 91% 92% 94% 94% Weight: Height: Wt Readings from Last 3 Encounters: 03/10/20 117.9 kg (259 lb 14.8 oz) 02/26/20 120.2 kg (265 lb) 11/15/19 123.4 kg (272 lb) Date 03/09/20 07 - 03/10/20 0659 03/10/20 07 - 03/11/20 0659 Shift 9696-7837 1644-0065 24 Hour Total 8490-5424 0997-0672 24 Hour Total INTAKE P.O. 440 300 740 I.V.(mL/kg/hr) 1860.7(1.3) 1422.9(1) 3283.6(1.2) 807.8 807.8 Shift Total(mL/kg) 2300.7(19.2) 1722.9(14.6) 4023.6(34.1) 807.8(6.9) 807.8(6.9) OUTPUT Urine(mL/kg/hr) 1000(0.7) 2275(1.6) 3275(1.2) 300 300 Shift Total(mL/kg) 1000(8.3) 2275(19.3) 3275(27.8) 300(2.5) 300(2.5) NET 1300.7 -552.1 748.6 507.8 507.8 Weight (kg) 120.1 117.9 117.9 117.9 117.9 117.9 PHYSICAL EXAM: General appearance - alert, well appearing, and in no distress Mental status - alert, oriented to person, place, and time Mouth - mucous membranes moist, pharynx normal without lesions Chest - Wheezes noted in bilateral lungs, Heart - normal rate, regular rhythm, normal S1, S2, no murmurs, rubs, clicks or gallops Abdomen - soft, nontender, nondistended, no masses or organomegaly Musculoskeletal - no joint tenderness, deformity or swelling Extremities - peripheral pulses normal, no pedal edema, no clubbing or cyanosis Skin - normal coloration and turgor, no rashes, no suspicious skin lesions noted PIV - dressing intact, no redness or swelling noted LABS: Recent Labs Component Name 03/10/20 0059 03/09/20 0045 03/08/20 0023 03/07/20 0005 02/27/20 0411 WBC 17.7* 16.8* 10.8* 14.0* - 7.3 RBC 3.39* 3.34* 3.53* 3.36* - 4.15* HGB 9.7* 9.7* 10.1* 9.6* - 11.9* HCT 28.1* 28.1* 30.6* 28.8* - 35.4* MCV 82.9 84.1 86.7 85.7 - 85.3 MCH 28.6 29.0 28.6 28.6 - 28.7 MCHC 34.5 34.5 33.0 33.3 - 33.6 PLTCOUNT 231 268 238 260 - 402* RDWSD 49.1 51.3* 55.3* 52.1* - 49.6 RDW 16.7* 17.2* 19.5* 17.1* - 16.1* MPV 11.4 12.8 - 11.6 - 10.4 NRBCABS 0.09* 0.15* 0.11* 0.09* - 0.00 NRBCAUTOPCT 0.5* 0.9* 1.0* 0.6* - 0.0 NEUTPCT 92.8* 85.1* 87.4* 91.1* - - LYMPHSPCT 4.2* 11.2* 7.6* 3.8* - - MONOPCT 2.2* 2.6* 3.7 4.1 - - EOSPCT 0.0 0.0 0.0 0.0 - - BASOPCT 0.1 0.1 0.1 0.1 - - IMMGRANSPCT 0.7 1.0 1.2* 0.9 - - NEUTABS 16.4* 14.3* 9.5* 12.7* - 6.79 LYMPHS 0.7* 1.9 0.8 0.5* - 0.44* MONO 0.38 0.44 0.40 0.57 - 0.07* EOS 0.00 0.00 0.00 0.00 - - BASO 0.02 0.01 0.01 0.01 - - TOTCELLCNT - - - - - 100 - = values in this interval not displayed. Recent Labs Component Name 03/10/20 0059 03/09/20 0554 03/08/20 2140 03/08/20 0223 BUN 17 19 19 14 CREATININE 0.7 1.0 0.9 0.9 NA 137 140 141 144 POTASSIUM 4.1 3.5 3.6 4.1 CL 103 103 103 108* CO2 22 27 24 25 CALCIUM 7.9* 8.0* 7.7* 8.0* PROT 5.1* 5.3* - 5.2* ALB 1.7* 1.8* - 1.7* TBILI 0.6 0.9 - 0.3 ALKPHOS 152* 164* - 74 ALT 120* 165* - 47 AST 48* 139* - 17 ANIONGAP 16 14 18 15 BCR 24* 19 21 16 OSMOLALITY 285 291 294 298 AGRATIO 0.5* 0.5* - 0.5* EGFR >60 >60 >60 >60 Recent Labs Component Name 03/10/20 0059 03/09/20 0554 03/09/20 0410 MAGNESIUM 2.0 2.6 1.3* Recent Labs Component Name 03/10/20 0059 03/09/20 0045 03/08/20 0223 PHOS 2.9 2.4 3.4 Pathology: CD4: see epic 02/26 BMBX (03/03/20): Path- Normocellular marrow with maturing trilineage hematopoiesis. No morphologic evidence of residual/recurrent non-Hodgkin lymphoma. Flow-NISHA Cyto- pending FISH- pending Infectious Workup Covid swap (03/07/20): positive Bronch (03/06/20): COVID +, otherwise negative. Path pending COVID (03/04/20):negative COVID (03/03/20): negative PJP PCR: negative Beta D Glucan: pending Blastomyces: ND Histoplasma blood: negative Histoplasma urine: negative Asperigillus: negative Toxoplasma PCR: negative Bartonella IgG: negative Bartonella IgM: negative Cryptococcus: Negative Urine Legionella: Negative Last BC x2 (03/09): Pending UA with culture (02/25/20): NGTD RVP (02/25/20): ND Covid swab (02/25/20): negative Covid IgG (02/25/20): Negative RADIOLOGY: PCX (03/05/20): Increase in diffuse patchy airspace opacities in bilateral lungs concerning for multifocal pneumonia. Small left pleural effusion is suggested. There is no pneumothorax. The cardiomediastinal silhouette is Normal Venous Duplex (03/03/20): Negative for DVT CT Chest (03/02/30): 1. Altered distribution of prominent geographic groundglass opacities within the upper and lower lung zones bilaterally. This suggests ongoing inflammatory or infectious process, rather than discrete areas of progressive fibrosis. Areas of groundglass can progress to fibrosis, therefore continued follow-up is advised.2. Re-demonstration of nonocclusive thrombus within the left brachiocephalic vein which extends to the superior vena cava CT C/A/P (02/26/20): 1. Patchy, peripheral predominant groundglass opacities in [...] acute process identified in the abdomen or pelvis ECHO (03/02/20): Limited echo to assess left ventricular function. There is concentric remodeling of the left ventricle. The left ventricle is normal size. Left ventricular segmental wall motion is normal. Left ventricular systolic function is normal with an ejection fraction by Biplane Method of Discs of 68 %. ASSESSMENT/PLAN: JALIL LUIS is a 49 year old male, who is Day +141 (Day 0 is 10/20/19) of an autologous peripheral blood stem cell transplant with a 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 SYSTEMS: Marginal Zone Lymphoma in CR2 pre-transplant Schema: 5A Prep: BEAM, Cell count 10.4 x 10^6 CD34+cells/kg in 5 bags; day [address] A/P -- BMBx completed (03/03) -Transfusion threshold: Hgb > 7; Plt > 10; CMV +, transfusion pre meds: none needed -Engraftment: ANC day +9 (10/29/19); plt engraftment 11/03/19 (day +14) OI prophylaxis: Bacterial:??Hold Pen VK d/t escalation of antibiotics PJP:??Bactrim DS MWF Viral: Valtrex 500mg BID Covid -tested positive early January, asymptomatic at that time -Inflammatory markers Q 48hrs, Last done 03/10 - mostly elevated -Covid from bronch 03/07 and PROVISIONING ANALYST swab 03/07/ came back positive -remdesivir started 03/08 - convalescent plasma, patient refused initially and is now agreeable to gettting it today (03/10/20). Persistent Fevers -Afebrile overnight -BC Q24 when febrile - IgG - 209 - plan to replace when stable - CT C/A/P, results above - ID consult, appreciate recs - Completed 7D course of cem and vanco on 03/08/20 Hypoxia -On HFNC during the day, Bipap overnight -intubated 03/06/20 -03/08/20 -pred 90mg (1mg/kg) PO daily for possible BCNU pneumonitis 03/05-03/08/20 -Dex 6mg daily -Last CT chest 03/02/20, see above -03/03 BNP 25 and ECHO (03/03) negative -Consult Pulm; Bronch on 03/06/20 Elevated LFT's -LFT's trending down -hold Tylenol if possible -follow closely Headaches 03/09/20: asked MICU team to add Oxy PRN as has helped before - Neuro consult >LP completed 03/01. Results negative for meningitis Right IJ venous clot 09/27/19 -on Lovenox 120 mg Q12H while inpt - previously on Eliquis 5 mg BID Pertinent Medical History: Anxiety/Depression- Lexapro 10 mg daily Restless Leg Syndrome - Requip 0.25 mg QHS Discharge Planning: Patients preferred contact information: cell Caregiver: sister, girlfriend Preferred D/C Pharmacy: [facility] Intended lodging: home Referring provider: Cesar Tavares Disposition: Remain on 6ICU Keli Evie, AGNP- Blood and Marrow Transplant [facility] I personally evaluated and examined Mr. Jalil Luis. I confirmed the alfonso elements of of history and physical examination. I also discussed the assessment and plan in detail with the team on rounds and with the patient. I made some modifications to the above note. I fully concur with the above assessment and plan. Ezio Segal MD External Grinder Tender Department of Internal Medicine Division of Hematology Oncology * Triny Larasea, RD/LD - 03/10/2020 7:47 AM CDT Nutrition Re-Assessment Nutrition Recommendations: Diet as tolerated Ensure High Protein (160 kcals, 16 g Pro, 19 g carbohydrate) TID Comments: Pt scheduled for reassessment. Pt extubated to bipap. No diet yet. Weaning to HFNC. COVID+. Last BM 03/05. Assessment: Med/Surg History and Clinical Diagnoses: Fever, diffuse large B-cell lymphoma, headache, fever in other diseases Diet order accuracy Current diet order: NPO Nutrition recommendation: alter/change nutrition order P.O.Intake for the past 48 hrs:No data recorded Food Allergies: No known food allergies GI Concerns: None Chewing/Swallowing: (bipap) Pain affecting intake: No Admission weight: Weight: 265 lb (120.2 kg) (02/25/20 2356) Filed Wts: 03/01/20 0459 03/02/20 0916 03/09/20 0400 03/10/20 0350 Weight: 270 lb 3.2 oz (122.6 kg) 267 lb 3.2 oz (121.2 kg) 264 lb 12.4 oz (120.1 kg) 259 lb 14.8 oz (117.9 kg) Wt Comments: stable Height: 5' 7.01 (170.2 cm) IBW/lb (Calculated) Male: 148.048 , Laboratory values reviewed. Medications noted. Remdesivir Skin/Wound: WDL Estimated Energy Needs: KCAL: 5405-5847 (30-35 kcal/kg IBW) Protein (g): 95-110 (1.4-1.6 g/kg IBW) Fluid (ml): 1 ml/kcal Needs based on: (67.3kg) Recommended Access Route: PO Education needed: None Nutrition Care Process (1) Nutrition Diagnostic Statement: Increased nutrient needs related to:: increased demands with critical illness(febrile) as evidenced by:: estimated protein needs ..(2.0-2.5 g/kg IBW) Nutrition Diagnostic Statement Progress: Nutrition problem continues Nutrition Intervention: Meals and snacks:;Medical Food Supplements: Monitoring: TF, BM, labs, meds, weight Evaluation: Nutrition Goal: Total intake will meet estimated nutrient needs Nutrition Goal Timeframe: Throughout stay Nutrition Goal Progress: Continue with current goal Yovana Lara RD/NIKO Pager #: [phone] * Kristina Field, PT - 03/09/2020 4:27 PM CDT Problem: Balance Goal: LTG - Patient will maintain balance to allow for safe mobility Outcome: Ongoing * Anali Avery MD - 03/09/2020 12:19 PM CDT CCU PROGRESS NOTE Name: Jalil Luis Admit Date and Time: 02/25/2020 9:41 PM LOS: LOS: 13 days Rm/Bed: 641/641-01 Hospital Day: 13 BRIEF HOSPITAL COURSE: per Joe Dennison MD 49 year oldmale [facility] 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 Recent SARS-CoV-2 (+) in the beginning of January as a routine check up. Progressively short of breath and fever 2-3 weeks later and admitted to the hospital 02/24??with complaints of low grade fevers, moderate to severe headache, photophobia, and neck pain x2 weeks. LP on 03/01 with negative findings. On March 04, febrile >102, transitioned to??HFNC 40L CT chest noted worsening GGO s/p vanc, cefepime. ?? Patient underwent bronchoscopy with BAL, brushing, transbronchial biopsy, sent bacterial, fungal, viral, PJP, COVID 19, cell counts, cytology. Started on prednisone per BMT service. Patient was intubated in the bronch suite an transferred to the MICU. COVID+ from bronch. Pt was extubated 03/08 and agreed to Remdesivir however did not want convalescent plasma. Predinisone was discontinued and started on dexamethasone 6mg q24h PO. SUBJECTIVE INTERVAL HISTORY: Vancomycon and Meropenem were discontinued since blood and sputum cultures negative for bacterial infection. Pt is asplenic and was started on penicillin VK 250mg q12h for pneumococcal prophylaxis. Otherwise patient is hemodynamically stable as well as saturating well on BiPAP and will be weaned to HFNC. Patient continues to have fever with Tmax 101.9 F overnight however his fevers have been occurring for 5-6 weeks and at this time are being attributed to his COVID infection. OBJECTIVE Temp: [98.6 ??F (37 ??C)-101.9 ??F (38.8 ??C)] 98.6 ??F (37 ??C) Pulse: [71-126] 126 Resp: [13-25] 25 BP: (91-142)/(52-90) 111/59 O2 %: [60 %-100 %] 100 % Intake/Output Summary (Last 24 hours) at 03/09/2020 1220 Last data filed at 03/09/2020 0631 Gross per 24 hour Intake 812.38 ml Output 2475 ml Net -1662.62 ml Date 03/08/20699 - 03/09/2065803/09/20699 - 03/10/20 0659 Shift 3264-2569 4094-2418 24 Hour Total 5416-5148 6748-8936 24 Hour Total INTAKE I.V.(mL/kg/hr) 1555.5(1.1) 1555.5(0.5) Tube 60 60 Shift Total(mL/kg) 1615.5(13.3) 1615.5(13.5) OUTPUT Urine(mL/kg/hr) 1950(1.3) 1175(0.8) 3125(1.1) Shift Total(mL/kg) 1950(16.1) 1175(9.8) 3125(26) NET -334.5 -1175 -1509.5 Weight (kg) 121.2 120.1 120.1 120.1 120.1 120.1 Physical Exam: General: Lying in bed, Elderly, Intubated and sedated HEENT: PERRL, EOMI, MMM, No JVD, OG/ET Tube in place Lungs: CTAB no w/r/r Heart: RRR no m/r/g Abdomen: S/NT/ND/BS x4, Extremity: No Edema, Pulses 2+ Skin: Warm and dry. No rashes or bruising noted. Neurological: Intubated and Sedated : Lechuga in Place Labs CBC: Recent Labs Component Name 03/09/20 0045 03/08/20 0023 03/07/20 0005 WBC 16.8* 10.8* 14.0* HGB 9.7* 10.1* 9.6* BMP: Recent Labs Component Name 03/09/20 0554 03/08/20213903/08/20 0223 NA 140 141 144 CL 103 103 108* CO2 27 24 25 BUN 19 19 14 CREATININE 1.0 0.9 0.9 Recent Labs Component Name 03/09/20 0554 03/09/20 0045 03/08/20 2140 03/08/20 0223 03/07/20 0005 CALCIUM 8.0* - 7.7* 8.0* 8.3* PHOS - 2.4 - 3.4 2.9 LFT: Recent Labs Component Name 03/09/20 0554 03/08/20 0223 03/07/20 0005 PROT 5.3* 5.2* 5.1* ALB 1.8* 1.7* 1.9* ALKPHOS 164* 74 75 AST 139* 17 21 ALT 165* 47 69* Coagulation: Recent Labs Component Name 03/06/20 1816 02/27/20 2349 02/27/20 0411 09/09/19 1242 PT 14.7 14.2 16.2* 12.9 INR 1.2 1.1 1.3 1.0 PTT 26.0 - 37.9 27.4 Cardiac markers: Recent Labs Component Name 03/03/20 1247 TROPONINI <0.010 ABG:No results for input(s): PHART, EXC1WRK, PO2ART, PAG7MGP, BASEEXCESS in the last 36652 hours. Invalid input(s): SO2ABG, FOHBABG UA:@EPUA@ Imaging ASSESSMENT & PLAN Neurological #Sedation, resolved Titrated propofol & precedex and extubated 03/08 Patient is awake & following commands this morning, tolerating Bipap and will be transitioned to HFNC today - Monitor mental status every hour and notify MD if any changes - Fall precautions, Seizure precautions, HOB elevated Cardiovascular: JUSTIN Pulmonary: #AHRF #Hx of COVID (+) #B/l pulmonary infiltrates DDx: Infection, inflammation, medication induced pneumonitis. COVID+ still, Unsure if this acute infx vs residual genetic material from initial infection. Discontinued prednisone 03/08 and started dexamethesone for concern for inflammatory component/pneumonitis. We discontinued vanc and cem however due to his immunocompromised status and asplenic started him on ampicillin VK 03/09 for pneumococcal ppx.??Will continue to look out for other micro studies throughout the day. Plan: - continue dexamethasone 6mg. - SARS COVID w/ positive results 03/06 and 03/07. - bacterial, fungal, viral, PJP, COVID 19, cell counts, cytology all normal or negative results. -continue Remdesivir, continue watching LFTs for sideeffect -transition from bipap to HFNC #OI PPx Bacterial held in setting of concerns for septicemia - PJP: Bactrim DS MWF - Viral: Valtrex 500mg BID - Titrate Fi O2 to the lowest needed to keep Sats > 88% - Keep HOP elevated 30 degrees, oral care, aspiration precautions GI: JUSTIN Renal: Electrolytes: Monitor chem 7 and Mg every 24 hours and replace Mg if less than1.8 or if K < 3.5 Endocrine: JUSTIN Monitor accucheck every 4 hours and use sliding scale to keep between glucose between 140 - 180 I.D.: #Fevers Probable COVID, still covering broadly at this time. Repeat COVID pending as there may be componentof material vs acute COVID. -BM results normal cellularity, bacterial, fungal or viral all negative both in sputum and blood - Tylenol prn. 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 BMT on board to help guide management. Plan: - continue dexamathasone 6mg today. ?? #Hx of RIJ clot - home eliquis held, on lovenox 120mg BID.?? Transfusion Protocol: Hb < 7, Plt < 10 Lines: PIV, ETT Tube Prophylaxis: DVT prophylaxis: [] Lovenox 40mg , [] Lovenox 30mg, [] Sq Heparin GI prophylaxis: protonix Aspiration precautions with elevation of HOB by 30 degrees. Fluids: NS 100ml/hr Diet: Advance as tolerated Activity: Ad Kristi Disposition: ICU Monitoring Code: Full Code Please note, recommendations are not final until attested/co-signed by the attending physician. Anali Avery MD PGY-1, Internal Medicine 03/09/20 12:20 PM Associated attestation - Nilo Yun MD - 03/09/2020 3:37 PM CDT I have seen and examined the patient with the resident and I agree with the findings and plan of care as documented by the resident. Date of Service: 03/09/2020. Nilo Yun MD * Rashida, Kristina Nuñez Bharti, PT - 03/09/2020 10:35 AM CDT [facility] Physical Medicine and Rehabilitation Physical Therapy Initial Evaluation Note Patient: Jalil Luis Med Record Number: [id number] Date of : 1970 Age: [age] year old [place] with OT 2/2 level of skilled assist needed unknown for first time out of bed Pt is COVID-19 POSITIVE: N-95 mask, alva cover, eye protection, face shield, gown, gloves donned throughout Discharge Recommendation: Patient will benefit from home health physical therapy . Patient currently using no assistive device. Nurse and Occupational Therapy contacted regarding patient status and/or discharge plan. Physician Orders: Evaluation and Treat PRECAUTIONS: Fall Activity Level up ad kristi DIAGNOSIS: Patient Active Problem List: DLBCL (diffuse large B cell lymphoma) B-cell lymphoma Lymphadenopathy History of marijuana use S/P splenectomy Asthma Fever Status post autologous bone marrow transplant Ground glass opacity present on imaging of lung Stem cells transplant status Acute respiratory failure with hypoxia Pneumonia due to COVID-19 virus Past Medical History: Diagnosis Date ??? Diverticulosis ??? GERD (gastroesophageal reflux disease) taking prevacid prn ??? H/O echocardiogram 08/11/2019 ??? Lymphoma of lymph nodes ??? Multiple body piercings facial ??? Port-A-Cath in place right subclavian ??? Sleep apnea not using CPAP ??? Transient alteration of awareness 2018 during knee arthroplasty(single incident) SUBJECTIVE: I need something for my headache. Pt agreeable to PT session. PATIENT GOALS: Getting my strength up. Home living: Type of Residence: Private Residence Lives with:: Spouse;Sister Steps to Enter: 1 Handrails: Indoor Home Structure: Two Story Primary Bathroom: Basement Bathroom : Tub/Shower Combo Equipment At Home: None Prior Function: Mobility: Ambulate-In Community;Ambulate-In Home ;Independent;Without Assistive Device Fallen Within 6 Mos: No Oxygen at Home: No Activity at Home: Active Vision: No impairment Hearing Exceptions: No impairment Who manages medications?: (self) At start of therapy session, patient found in bed and with bed alarm on. Pain: Patient has 7/10 pain in Head. Follow-up for pain: Yes, Informed nurse/physician about pain issue OBJECTIVE: General Appearance: Male, in bed, NAD Precautions: IV's: Peripheral line and Oxygen Edema: None observed BLE Vitals: (*Assess the 3 levels of oxygen saturations both for room air and 02 unless rest on room air is 88% or less). Rest BP: 124/61 HR: 103 Sp02 Sp02 93 Room Air L O2 70L FiO2 Ex/Gait/Activity Without 02 BP: HR: Sp02 Room Air Ex/Gait/Activity With 02 BP: HR: 112 125 Sp02 85-87 91% 94% after sitting EOB for 4 mins 85% after getting to chair 90% after 2 mins in chair w/ rest L O2 70% Fi02 80% Fi02 80% Fi02 80% Fi02 80% Fi02 Post Activity BP: 113/64 HR: 115 Sp02 Sp02 92-94% L O2 Room Air 80% Fi02 Observations: Pt FiO2 increased with functional mobility. RN made aware. Pt with reports of SOB with bed > chair transfer. MENTAL STATUS: Alert and oriented times 4 DIRECTION FOLLOWING: Able to follow multi-step commands 100% ROM: BLE WFL AROM STRENGTH: BLE grossly 4/5 SENSATION: BLE intact light touch sensation TONE: Normal NEGLECT: No COORDINATION: No gross motor impairment observed this date FUNCTIONAL MOBILITY Not Tested Not Applicable Independent Stand by Assist Minimal Moderate Maximum Dependent Rolling X Scooting X Supine to/from sit X Sit to/from Stand X Bed to/ chair X BALANCE: Sitting Static: good Dynamic: good Standing Static: good minus Dynamic: fair plus GAIT: Weight Bearing: BLE WBAT Distance: 3 feet from bed> chair Device: none Assistance: Minimal assist Balance: fair/fair plus Steps: NT poor endurance Observation: shuffled gait from bed > chair with decreased step length/height; pt requires cues for upright posture with gait and transfer ACTIVITY TOLERANCE: Patient's activity tolerance: fair minus TREATMENT/INTERVENTIONS: evaluation, ROM, strengthening exercises, bed mobility training, transfer training, gait training, balance activities and monitoring of vitals EDUCATION: While performing PT, Patient was instructed in:Functional mobility training/weight bearing status and Safety awareness/fall precaution Patient demonstrated Good understanding of instructions given. INFORMED CONSENT TO TREATMENT: Plan of care including recommended therapy, goals and frequency, discussed with patient who understands and agrees to proceed. ASSESSMENT: Patient's functional performance presently limited due to: pain, medical condition, stairs, decreased ROM, strength, endurance, bed mobility, transfers, gait, safety awareness and balance and Patientwould benefit from additional Physical Therapy to achieve the following functional goals to enhance independence. Short Term Goals: Goal Formation With patient Patient will perform bed mobility: Independent Patient will transfer sit to/from stand: Stand By Assist Patient will transfer bed to/from chair: Stand By Assist Patient will ambulate 50 feet with Stand By Assist and appropriate AD Patient will ascend/descend 10 steps: Stand By Assist and hand rail assist Patient will perform home exercise program independently Residential Goal(s): Patient to be independent/baseline with functional mobility and self care and be able to safely discharge to prior level of care Equipment Issued: gait belt Plan: If patient is discharged from the facility, this note serves as a discharge summary if further physical therapy visits did not occur. Following therapy session, patient left in patient bedside chair, with chair alarm on, with call light within reach and with RN aware. Kristina Field, PT 03/09/2020 * Inga Cortez, OT - 03/09/2020 10:28 AM CDT [facility] Physical Medicine and Rehabilitation Occupational Therapy Initial Evaluation Note Patient: Jalil Luis Med Record Number: [id number] Date of : 1970 Age: [age] year old Co-Eval w/ PT Patient is COVID-19 positive. PPE donned by therapist throughout session - disposable gown, gloves, N95 mask, eye protection, faceshield, hair net, alva cover and shoe covers. Discharge Recommendation: Patient should be able to return home WITH HOME HEALTH OT when medically cleared by physician team. Therapy will continue to treat patient while in hospital. See current amount of assist needed below. *PT IS NOT MEDICALLY READY TO DC HOME AT THIS TIME* Plan: ADL training Functional transfer training Endurance training Bed mobility Energy conservationSafety awareness HEP training Physician Orders: Evaluation and Treat Precautions: FALLS SAFETY *COVID-19+* DIAGNOSIS: Patient Active Problem List: DLBCL (diffuse large B cell lymphoma) B-cell lymphoma Lymphadenopathy History of marijuana use S/P splenectomy Asthma Fever Status post autologous bone marrow transplant Ground glass opacity present on imaging of lung Stem cells transplant status Acute respiratory failure with hypoxia Pneumonia due to COVID-19 virus Past Medical History: Diagnosis Date ??? Diverticulosis ??? GERD (gastroesophageal reflux disease) taking prevacid prn ??? H/O echocardiogram 08/11/2019 ??? Lymphoma of lymph nodes ??? Multiple body piercings facial ??? Port-A-Cath in place right subclavian ??? Sleep apnea not using CPAP ??? Transient alteration of awareness 2018 during knee arthroplasty(single incident) SUBJECTIVE: I feel okay actually PATIENT GOALS: Get stronger I guess Home living: Type of Residence: Private Residence Lives with:: Spouse;Sister Steps to Enter: 1 Handrails: Indoor Home Structure: Two Story Primary Bathroom: Basement Bathroom : Tub/Shower Combo Equipment At Home: None Prior Function: Mobility: Ambulate-In Community;Ambulate-In Home ;Independent;Without Assistive Device Fallen Within 6 Mos: No Have Help at Home?: Yes, there is help at home now How often is assistance provided?: as needed Level of Help Sufficient?: Yes Oxygen at Home: No Activity at Home: Active(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 Pain: Patient c/o a killer headache and asked for pain meds. Therapist informed RN Amy who stated she would be in w/ some tylenol Follow-up for pain: Yes, Informed nurse/physician about pain issue OBJECTIVE: General Appearance: 49 yo pleasant and cooperative CM in bed in NAD Precautions: IV's: Peripheral line, Oxygen and Bipap Edema: None noted to either UE Vitals: (*Assess the 3 levels of oxygen saturations both for room air and 02 unless rest on room air is 88% or less). Rest BP: 124/61 HR: 103 Sp02 ?? Sp02 93 Room Air ?? L O2 ?? 70L FiO2 Ex/Gait/Activity Without 02 BP: ?? HR: ?? Sp02 ?? Room Air ?? Ex/Gait/Activity With 02 BP: ?? HR: 112 ?? 125 ? Sp02 85-87 91% 94% after sitting EOB for 4 mins 85% after getting to chair 90% after 2 mins in chair w/ rest L O2 70% Fi02 80% Fi02 80% Fi02 80% Fi02 80% Fi02 Post Activity BP: 113/64 HR: 115 Sp02 ?? Sp02 92-94% L O2 ?? Room Air Bipap Fi02 increased to 80% (ROSEMARY Reyes aware and approved). Pt w/ overall very poor endurance, but has decent strength. Needs minimum 3-5 mins of sitting to recover (and limited talking) Cognitive: A&Ox4; pt was very cooperative and pleasant. Followed 100% of multi- step commands. Is not impulsive. Perceptual: WFL Upper extremity range of motion: WFL B UEs (slightly limited by lines) Upper extremity strength: Grossly 5/5 Tone: Normal Coordination: Normal Sensation: Intact B UEs Patient's activity tolerance: poor Comments: Pt w/ good, functional strength, but is severely lacking appropriate endurance. Needs 3-5minutes of uninterrupted sitting after every transition (sup <>sit, sit <> stand) and eventually needed increased Fi02 on Bipap FUNCTIONAL MOBILITY Not tested Independent Stand by Assist Minimal Moderate Maximum Dependent Rolling X Supine to/from sit X Sit to/from Standing X X Bed to/from chair X X Functional mobility of ambulation to sink/bathroom with: NT--pt does not have the appropriate endurance to ambulate distances at this time Balance: Static Sitting: good Dynamic Sitting: good Static Standing: good minus Dynamic Standing: good minus Activities of Daily Living Feeding:NT Grooming/Bathing: Stand By Assist --seated EOB only--does not have appropriate endurance to stand Upper Extremity Dressing: not tested Lower Extremity Dressing: Stand By Assist --socks Toileting/Transfers: not tested Splint Issued/Checked: none TREATMENT / EDUCATION / EVALUATION: Purpose of Occupational Therapy evaluation explained. While performing mobility, exercise and self care, Patient was instructed in: Functional mobility training/weight bearing status, Energy conservation, Safety awareness/fall precaution, Home exercise program, Discharge plan, Self care training and Use of adaptive equipment Presented to patient who demonstrates Good understanding of instructions given. INFORMED CONSENT TO TREATMENT: Plan of care including recommended therapy, goals and frequency, as well as potential risks and benefits of treatment/assessment explained to patient. Patient understands and agrees to proceed. ASSESSMENT: Functional performance limited due to: limited activities of daily living, decreased mobility and endurance Nurse and PT contacted regarding patient status and/or discharge plan. Short Term Goals: Patient will perform grooming Standing at sink and With modified independence Patient will perform lower extremity dressing With modified independence Patient will perform toileting With modified independence Family Nurse Practitioner Goal: Patient to be independent/baseline with functional mobility and self care and be able to safely discharge to prior level of care If patient is discharged from the facility, this note serves as a discharge summary if further occupational therapy visits did not occur. Following therapy session, patient left in patient bedside chair, with call light within reach, with RNAmy aware and with RN/CP rehab cues written on white board. Inga Cortez, OT 03/09/2020 * Jayson Friedman MD - 03/09/2020 10:25 AM CDT Images from the original note were not included. [facility] Progress Note Admitted on: 02/25/2020 9:41 PM Hospital stay: Day 13 Room: [address] [place] [address] Primary Team: Attending: Nilo Yun MD Reason for ID consultation: recent??COVID-19 positive on 01/07/2020 per patient report, fever over the past 2 weeks. 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 ID is called for consult regarding management of recent positive??COVID- 19 and fever. LP on 03/01 with negative finding. SUBJECTIVE & INTERVAL HISTORY: Still had fever. Headache associated with headache. Extubated yesterday and now on BIPAP FiO2 70%. No diarrhea. Dry cough occasionally. Fever again yesterday and UA, BC were collected Current Abx Penicillin V po 03/08- Valacyclovir?? remdesivir 03/08- Prior Abx: Penicillin VK PO ??Cefepime (02/25/20 - 03/03 ) Iv meropenum 03/03- 03/08 Iv vancomycin 02/25-??03/08 Inpatient Medications ??? 0.9% NaCl IV ??? 0.9% NaCl 3 mL Intracatheter q8h ??? albuterol HFA 2 puff Inhalation q4h ??? artificial tears Each Eye q8h ??? dexamethasone 6 mg Oral QDAY ??? enoxaparin 120 mg Subcutaneous q12h ??? EPINEPHrine ??? lidocaine ??? lidocaine viscous ??? pantoprazole EC 40 mg Oral QDAY ??? penicillin V potassium 250 mg Oral q12h ??? remdesivir ([id number]) infusion 100 mg Intravenous q24h ??? trimethoprim-sulfamethoxazole 160 mg Intravenous MON, WED AND FRI ??? valACYclovir 500 mg Enteral Tube BID 0.9% NaCl IV, , Last Rate: 100 mL/hr at 03/09/20 0619 PRN Medications SALINE LOCK, INSERT AND MAINTAIN AND 0.9% NaCl AND 0.9% NaCl ??? acetaminophen ??? magnesium sulfate ??? ondansetron (disintegrating) ??? ondansetron ??? prochlorperazine ??? prochlorperazine OBJECTIVE: Vital Signs: BP 124/61 Pulse 102 Temp 100.6 ??F (38.1 ??C) Resp 21 Ht 5' 7.01 (1.702 m) Wt 264 lb 12.4 oz (120.1 kg) SpO2 95% BMI 41.46 kg/m2 Temp (24hrs), Av.4 ??F (38 ??C), Min:98.7 ??F (37.1 ??C), Max:101.9 ??F (38.8 ??C) I/O: Intake/Output Summary (Last 24 hours) at 03/09/2020 1025 Last data filed at 03/09/2020 0631 Gross per 24 hour Intake 1070.05 ml Output 2475 ml Net -1404.95 ml Physical Exam: General: on BIPAP Neck: Supple, no LAD, no JVD, trachea midline Lungs:coarse BS bilateraly Heart: RRR, normal S1 and S2, no murmur Abdomen: Soft, non-distended, non-tender, +BS Neurologic:no focal deficits Extremities: No clubbing, cyanosis, or edema Lines: PIV LABS CBC: Recent Labs Component Name 03/09/20 0045 03/08/20 0023 03/07/20 0005 WBC 16.8* 10.8* 14.0* RBC 3.34* 3.53* 3.36* HGB 9.7* 10.1* 9.6* HCT 28.1* 30.6* 28.8* MCV 84.1 86.7 85.7 BMP: Recent Labs Component Name 03/09/20 0554 03/08/20 2140 03/08/20 0223 03/07/20 0005 NA 140 141 144 144 CL 103 103 108* 109* CO2 27 24 25 26 BUN 19 19 14 12 CREATININE 1.0 0.9 0.9 0.9 ALB 1.8* - 1.7* 1.9* PROT 5.3* - 5.2* 5.1* estimated creatinine clearance is 110.8 mL/min (based on SCr of 1 mg/dL). LFTs: Recent Labs Component Name 03/09/20 0554 03/08/20 0223 03/07/20 0005 03/06/20 1816 03/05/20 2353 03/04/20 2327 03/03/20 2345 03/03/20 0014 03/01/20 2352 02/29/20 2334 02/29/20 0012 02/27/20 2349 02/27/20 0411 02/26/20 0042 11/15/19 0911 11/11/19 1231 11/04/19 0858 11/01/19 0909 10/30/19 1115 10/29/19 0002 10/28/19 0000 10/27/19 0007 10/26/19 0012 10/25/19 0013 10/24/19 0015 10/23/19 0031 10/22/19 0015 10/20/19 2359 10/20/19 0041 10/19/19 0021 10/17/19 2343 10/17/19 0020 10/16/19 0002 10/15/19 0019 10/13/19 2319 10/13/19 0951 09/30/19 1115 09/09/19 1242 08/26/19 1345 08/19/19 0542 08/18/19 0555 07/26/19 1248 06/28/19 1351 06/09/19 1341 05/24/19 1206 03/22/19 1500 ALKPHOS 164* 74 75 73 81 90 83 82 86 87 89 97 109 110 102 108 128 124 119 102 95 84 69 72 64 64 73 77 80 82 86 83 90 104 126 137 155* 108 108 68 65 74 63 70 65 125 ALT 165* 47 69* 74* 93* 70* 65* 90* 94* 95* 40 29 29 31 22 29 42 47 48 43 54 53 46 56* 68* 77* 103*122* 117* 137* 76* 70* 40 33 49 46 58* 36 48 35 40 68* 31 30 31 22 AST 139* 17 21 28 47* 39* 24 31 29 59* 26 22 22 29 15 18 26 25 27 14 18 17 12 12 14 19 23 50* 28 56* 25 29 19 15 21 20 23 20 31 29 31 31 19 22 19 20 Results for JALIL LUIS ( ) as of 03/01/2020 12:20 Ref. Range 03/01/2020 10:39 03/01/2020 10:48 Glucose,CSF-STAT Latest Ref Range: 40 - 70 mg/dL 81 (H) Protein CSF Latest Ref Range: 15 - 45 mg/dL 20 Xanthochromia Fluid Latest Ref Range: Negative Negative Volume Fluid Latest Units: mL 3.0 Color Fluid Latest Ref Range: Colorless, Straw Colorless Clarity Fluid Latest Ref Range: Clear Clear Differential Unknown Manual Differential to follow. RBC Calculation Latest Units: /uL 1 WBC Calculation Fluid Latest Ref Range: 0 - 5 /uL 1 Lymphocytes % Fluid Latest Units: % 46 Monocytes % Fluid Latest Units: % 50 Macrophages % Fluid Latest Units: % 4 Results for JALIL LUIS ( ) as of 03/06/2020 11:04 Ref. Range 03/03/2020 12:47 LDH Total Latest Ref Range: 125 - 243 Units/L 468 (H) C-Reactive Protein Latest Ref Range: <=0.5 mg/dL 9.1 (H) Fibrinogen Clauss Latest Ref Range: 200 - 400 mg/dL 584 (H) D-Dimer Quantitative Latest Ref Range: <=0.50 mcg/mL FEU 1.20 (H) Results for JALIL LUIS ( ) as of 03/08/2020 12:59 Ref. Range 03/08/2020 02:23 C-Reactive Protein Latest Ref Range: <=0.5 mg/dL 20.0 (H) Osmolality Calculated Latest Ref Range: 270 - 300 mOsm/kg 298 LDH Total Latest Ref Range: 125 - 243 Units/L 518 (H) MICROBIOLOGY: RESPIRATORY PATHOGEN PANEL BY PCR 02/25/20: Not detected ?? SARS-COV-2 (COVID-19) 02/25/20, 02/26. 03/04: negative 03/06 positive 03/07 positive ?? 02/25/20, : COVID-19 Ab IgG: negative ?? 02/26/20: CMV PCR Quant Blood: negative EBV PCR Quant Blood: negative ADENOVIRUS PCR Quant Blood: in process Aspergillus galactomannon Ag negative Toxoplasma IgM/IgG negative?? Toxoplasma PCR pending Microbiology: Blood culture 02/25/20: x 2 no growth ??02/26/20: x 2 no growth Blood AFB culture pending Blood fungal culture pending 03/02 in process 03/03: in process Urine culture 02/25/20: in process UA: WBC 0-5 Cryptococcal Ag negative 02/25 Urine legionella Ag negative Blood PJP PCR pending Beta D glucan pending HISTOPATHOLOGY: Cytology 03/03 bone marrow Flow cytometry Bone marrow, flow cytometric immunophenotypic analysis: - No evidence of non-Hodgkin lymphoma or high-grade myeloid neoplasm. Pathology Final Diagnosis Bone marrow, aspirate, clot section, and core biopsy: - Normocellular marrow with maturing trilineage hematopoiesis. - No morphologic evidence of residual/recurrent non-Hodgkin lymphoma. - See description. ?? Peripheral blood smear: - Normal white blood cell count with absolute neutrophilia. - Normochromic normocytic anemia. - See description. Bronchial alveolar lavage, cytology: 03/06 - Negative for malignancy - Macrophages, bronchial cells, and mucin - GMS stain is negative for fungal elements Lung tissue biopsy pending. IMAGING & PROCEDURE: Pertinen images independently reviewed; report in chart. CT chest/abd/pelvis 02/25 1. Patchy, peripheral predominant groundglass opacities in [...] process identified in the abdomen or pelvis. ?? MRI brain 02/25 No evidence of acute intracranial findings. ?? CT chest 03/02 1. Altered distribution of prominent geographic groundglass opacities within the upper and lower lung zones bilaterally. This suggests ongoing inflammatory or infectious process, rather than discrete areas of progressive fibrosis. Areas of groundglass can progress to fibrosis, therefore continued follow-up is advised. ?? 2. 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 ?? CXR 03/05 ASSESSMENT & RECOMMENDATIONS: 1. Fever in an autologous peripheral blood stem cell transplant patient and splenectomy: DDx is broad including bacterial, fungal, viral and recurrent lymphoma. His BC negative. Very less likely 2nd to fungal infection. He is autologous transplant patient. So very less likely viral infection with negative respiratory pathogen panel. Negative COVID *3 in nasal pharyngeal swab. Positive COVID from BAL swab (send as nasal pharyngeal swab sample). BAL COVID test is sent out, pending. And his last positive COVID is on 01/06. No contact hx after 01/13. Bone marrow biopsy negative for lymphoma S/p bronchoscopy on 03/06 and BAL cultures are pending. ?This positive COVID is active vs colonization 2. Headache, associated with photophobia and neck pain: Severe, duration ~2 weeks. MRI brain negative. related to his COVID before. Less likely herpes encephalitis with negative MRI brain. Cryptococcus Ag negative. LP with normal WBC, protein, glucose. Meningitis is ruled out. 3. 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 4. 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 Recent??COVID-19 positive on 01/07/2020 per patient report: Not received any treatment or clinical trial for this). COVID-19 Ab IgG not detected may be related to low immune response secondary to his immunosuppressive condition. 6. Renal function: Estimated Creatinine Clearance: 138.1 mL/min (based on SCr of 0.8 mg/dL). 7. 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 C/w penicillin po for prophylaxis for aspleen. ?? Check ferritin, LDH, d dimer, CRP, ESR every 48 hrs. ?? c/w remdesivir ?? He refused convalescent plasma ?? C/w dexamethasone 6 mg daily ?? pending viral culture of BAL for COVID to see whether this is active infection. ?? - Follow CBC with manual diff, CMP, and complete urinalysis weekly (at minimum) while on IV antibiotics Primary team: hematology Case was discussed with Dr Damian. >35 minutes spent on the care of this patient. > 50% was spent in counseling and coordinationof care that included the patient and the primay team. Jayson Friedman M.D. Infectious Diseases fellow (Team 1) Pager [phone], cell phone [phone]. You can call or text me for communication. Associated attestation - Joce Damian DO - 03/10/2020 12:32 AM CDT I applied COVID19 protocol to the patient. The case was discussed the patient with the team. I reviewed the fellow's note and agree with the findings and assessment and plan except as noted below. Please see the fellow's note. New Onset Fever and Hypoxia: Febrile w/ increasing O2 requirements 03/02 - 02/03, currently extubated on high-flow con't to be febrile. Of note was on dexa from 02/25 - 03/01 and then steroids re-started 03/04. DDx -> CT Chest w/ worsening GGO as compared to admission: S/P 7 days of vanco and cefepime. Less likely aspiration as no AMS or vomiting. Urine legionella negative. Of notes worsening resp status and feverafter steroids have been stopped, ?inflammatory process. S/P bronch w/ BAL on 03/06; PJP/Nocardia/Muco r/Aspergillus/CMV/HHV6/Adenovirus PCR, GM negative, bacteria cx NG, and additional infectious workup pending. Pathology non-specific. Given the acuity of the symptoms less likely PJP, fungitell pending and serum PJP PCR negative. Given his underlying autologous tx, less likely adeno (serum PCR negative), HHV6, CMV, or fungal. ?cardiac component mariela in the setting of recent COVID however BNP WNL. Most recent echo 08/2019 w/ EF in mid 50s. BAL +robyn for COVID. DDx -> acute infection vs residual genetic material given initial infection reportedly on 01/07/20. COVID PROVISIONING ANALYST swab negative x 3, 4th positive; initially mildly elevated inflammatory dhillon which have worsened. Currently receiving remdesivir and refused convalescent plasma. Monitor inflammatory markers q48h. Unable to send BAL for COVID culture to a commercial lab unfortunately as this would be able to confirm active infection. ?relapsed lymphoma mariela in the setting of dexa x 4 days and the extended period of fevers patient was having prior to admission. BMBx and flow unremarkable. BCx NGTD UE and LE Dupplex consistent w/ chronic RIJ DVT Hx of COVID: Dx in beginning of January 2020, therefore constellation of current symptoms less likely related given prolonged timeline. Serology negative however he just recently underwent an autologoustherefore this is expected. CT Chest on admission w/ B/L GGO which may be consistent w/ COVID. Fever on Admission: Resolved. Previously on dexa + vanco/cefepime. DDx -> Resp status stable on RA: CT Chest on admision w/ B/L GGO likely consistent w/ recent COVID infection however S/P 7 days of vanco/cefepime which would treat bacterial superimposed infections. RPP, GM, toxo, histo, blasto negative. COVID x 3 negative. COOPER w/ concerns of meningitis: S/P LP unremarkable for meningitis. CSF crypto and HSV negative. MRI Brain unremarkable. BCx NGTD Leukocytosis: Fluctuations. Initially 2/2 dexa and was improving however there was a pause in dexa treatment and has now been re-started which could explain the fluctuations recently * Amy Baron RN - 03/09/2020 9:21 AM CDT Will assess pain Q2H and within 1 hour of intervention. * Kristina Field, PT - 03/09/2020 9:01 AM CDT [facility] Department of Physical Medicine & Rehabilitation Progress Note Patient: Jalil Luis Med Record Number: [id number] Date of : 1970 Age: [age] year old 03/09/20 0901 Missed Visit Missed Visit Bedrest 0900 CX: Pt with bedrest orders at this time. Please update activity order when pt appropriate/indicated for skilled PT. Thank you. Kristina Field, PT 03/09/2020 9:03 AM * Shalini Segal MD - 03/09/2020 8:23 AM CDT Autologous Hematopoietic Stem Cell Daily Note: PATIENT IDENTIFIERS: JALIL LUIS is a 49 year old male who is Day +141 (Day 0 is 10/20/19) of an autologous peripheral blood stem cell transplant with a 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 INTERVAL HISTORY: Extubated on bipap Breathing comfortably Main complain is headache. Aching headache that come s and goes. Oxy helped. NO vision or neuro changes Would like to eat and get up but is not allowed to Denies N/V/D/SOB/ CP Febrile overnight and can tell when febrile as he has headaches and feels warm He does not want convalescent plasma as he does not want any products from another person due to his cancer diagnosis and impaired immune system ROS: A comprehensive review of systems was negative except for: as noted above MEDICATIONS FOR CURRENT ENCOUNTER: SCHEDULED MEDICATIONS: Followed by 0.9% NaCl injection 3 mL, Intracatheter, q8h albuterol HFA (PROVENTIL;VENTOLIN;PROAIR) 108 (90 Base) MCG/ACT inhaler 2 puff, Inhalation, q4h artificial tears ophthalmic ointment, Each Eye, q8h dexamethasone (DECADRON) tablet 6 mg, Oral, QDAY enoxaparin (LOVENOX) injection 120 mg, Subcutaneous, q12h pantoprazole EC (PROTONIX) tablet 40 mg, Oral, QDAY penicillin V potassium (VEETIDS) solution 250 mg, Oral, q12h potassium chloride ER (KLOR-CON M) tablet 40 mEq, Oral, Once remdesivir 100 mg in 0.9% NaCl IV 250 mL infusion, Intravenous, q24h sulfamethoxazole-trimethoprim (BACTRIM) 160 mg in dextrose 5 % 260 mL IVPB, Intravenous, MON, FRI AND FRI valACYclovir (VALTREX) tablet 500 mg, Enteral Tube, BID [COMPLETED] magnesium sulfate 2 g in 50 mL bolus, Intravenous, Once [COMPLETED] oxyCODONE (immediate release) (ROXICODONE) tablet 5 mg, Oral, Once [COMPLETED] potassium chloride ER (KLOR-CON M) tablet 40 mEq, Oral, Once ?? [COMPLETED] remdesivir 200 mg in 0.9% NaCl IV 250 mL infusion, Intravenous, Once CONTINUOUS MEDICATIONS: ?? 0.9% NaCl infusion, Intravenous, Continuous PRN MEDICATIONS: 0.9% NaCl injection 1-10 mL, Intracatheter, PRN acetaminophen (TYLENOL) tablet 650 mg, Oral, q4h PRN magnesium sulfate 2 g in 50 mL bolus, Intravenous, PRN ondansetron (disintegrating) (ZOFRAN ODT) tablet 4 mg, Oral, q8h PRN ondansetron (ZOFRAN) injection 4 mg, Intravenous, q8h PRN prochlorperazine (COMPAZINE) injection 10 mg, Intravenous, q6h PRN ?? prochlorperazine (COMPAZINE) tablet 5 mg, Oral, q8h PRN VITALS: Vitals: 03/09/20 0400 03/09/20 0500 03/09/20 0600 03/09/20 0700 BP: 115/65 133/65 119/62 122/70 Pulse: 105 105 105 105 Resp: Temp: 100 ??F (!) 100.8 ??F SpO2: 93% 95% 94% 94% Weight: 120.1 kg (264 lb 12.4 oz) Height: Wt Readings from Last 3 Encounters: 03/09/20 120.1 kg (264 lb 12.4 oz) 02/26/20 120.2 kg (265 lb) 11/15/19 123.4 kg (272 lb) Date 03/08/20 07 - 03/09/20 0659 03/09/20 0700 - 03/10/20 0659 Shift 0067-1227 0367-8129 24 Hour Total 2897-0836 5128-3212 24 Hour Total INTAKE I.V.(mL/kg/hr) 1555.5(1.1) 1555.5(0.5) Tube 60 60 Shift Total(mL/kg) 1615.5(13.3) 1615.5(13.5) OUTPUT Urine(mL/kg/hr) 1950(1.3) 1175(0.8) 3125(1.1) Shift Total(mL/kg) 1950(16.1) 1175(9.8) 3125(26) NET -334.5 -1175 -1509.5 Weight (kg) 121.2 120.1 120.1 120.1 120.1 120.1 PHYSICAL EXAM: Physical Examination: General appearance - alert, well appearing, and in no distress and oriented to person, place, and time Mental status - alert, oriented to person, place, and time Neuro: PERRLA Mouth - mucous membranes moist, pharynx normal without lesions Chest - clear to auscultation, exp wheezing in RLL, no rales or rhonchi, symmetric air entry. Bipapon Heart - normal rate, regular rhythm, normal S1, S2, no murmurs, rubs, clicks or gallops Abdomen - soft, nontender, nondistended, no masses or organomegaly Extremities - peripheral pulses normal, no pedal edema, no clubbing or cyanosis Skin - normal coloration and turgor, no rashes, no suspicious skin lesions noted LABS: Recent Labs Component Name 03/09/20 0045 03/08/20 0023 03/07/20 0005 03/06/20 1816 02/27/20 0411 WBC 16.8* 10.8* 14.0* 15.3* - 7.3 RBC 3.34* 3.53* 3.36* 3.02* - 4.15* HGB 9.7* 10.1* 9.6* 8.8* - 11.9* HCT 28.1* 30.6* 28.8* 25.4* - 35.4* MCV 84.1 86.7 85.7 84.1 - 85.3 MCH 29.0 28.6 28.6 29.1 - 28.7 MCHC 34.5 33.0 33.3 34.6 - 33.6 PLTCOUNT 268 238 260 246 - 402* RDWSD 51.3* 55.3* 52.1* 50.7* - 49.6 RDW 17.2* 19.5* 17.1* 16.8* - 16.1* MPV 12.8 - 11.6 11.8 - 10.4 NRBCABS 0.15* 0.11* 0.09* 0.16* - 0.00 NRBCAUTOPCT 0.9* 1.0* 0.6* 1.0* - 0.0 NEUTPCT 85.1* 87.4* 91.1* 94.1* - - LYMPHSPCT 11.2* 7.6* 3.8* 2.0* - - MONOPCT 2.6* 3.7 4.1 2.8* - - EOSPCT 0.0 0.0 0.0 0.0 - - BASOPCT 0.1 0.1 0.1 0.1 - - IMMGRANSPCT 1.0 1.2* 0.9 1.0 - - NEUTABS 14.3* 9.5* 12.7* 14.4* - 6.79 LYMPHS 1.9 0.8 0.5* 0.3* - 0.44* MONO 0.44 0.40 0.57 0.43 - 0.07* EOS 0.00 0.00 0.00 0.00 - - BASO 0.01 0.01 0.01 0.01 - - TOTCELLCNT - - - - - 100 - = values in this interval not displayed. Recent Labs Component Name 03/09/20 0554 03/08/20 2140 03/08/20 0223 03/07/20 0005 BUN 19 19 14 12 CREATININE 1.0 0.9 0.9 0.9 NA 140 141 144 144 POTASSIUM 3.5 3.6 4.1 4.2 CL 103 103 108* 109* CO2 27 24 25 26 CALCIUM 8.0* 7.7* 8.0* 8.3* PROT 5.3* - 5.2* 5.1* ALB 1.8* - 1.7* 1.9* TBILI 0.9 - 0.3 0.2 ALKPHOS 164* - 74 75 ALT 165* - 47 69* AST 139* - 17 21 ANIONGAP 14 18 15 13 BCR 19 21 16 13 OSMOLALITY 291 294 298 298 AGRATIO 0.5* - 0.5* 0.6* EGFR >60 >60 >60 >60 Recent Labs Component Name 03/09/20 0554 03/09/20 0410 03/08/20 2140 MAGNESIUM 2.6 1.3* 1.9 Recent Labs Component Name 03/09/20 0045 03/08/20 0223 03/07/20 0005 PHOS 2.4 3.4 2.9 Pathology: CD4: see epic 02/26 BMBX (03/03/20): Path- Normocellular marrow with maturing trilineage hematopoiesis. No morphologic evidence of residual/recurrent non-Hodgkin lymphoma. Flow-NISHA Cyto- pending FISH- pending Infectious Workup Bronch (03/06/20): COVID +, otherwise negative. Path pending COVID (03/04/20):negative COVID (03/03/20): negative PJP PCR: negative Beta D Glucan: pending Blastomyces: ND Histoplasma blood: negative Histoplasma urine: negative Asperigillus: negative Toxoplasma PCR: negative Bartonella IgG: negative Bartonella IgM: negative Cryptococcus: Negative Urine Legionella: Negative Last BC x2 (03/03): NGTD UA with culture (02/25/20): NGTD RVP (02/25/20): ND Covid swab (02/25/20): negative Covid IgG (02/25/20): Negative RADIOLOGY: PCX (03/05/20): Increase in diffuse patchy airspace opacities in bilateral lungs concerning for multifocal pneumonia. Small left pleural effusion is suggested. There is no pneumothorax. The cardiomediastinal silhouette is Normal Venous Duplex (03/03/20): Negative for DVT CT Chest (03/02/30): 1. Altered distribution of prominent geographic groundglass opacities within the upper and lower lung zones bilaterally. This suggests ongoing inflammatory or infectious process, rather than discrete areas of progressive fibrosis. Areas of groundglass can progress to fibrosis, therefore continued follow-up is advised.2. Re-demonstration of nonocclusive thrombus within the left brachiocephalic vein which extends to the superior vena cava CT C/A/P (02/26/20): 1. Patchy, peripheral predominant groundglass opacities in [...] acute process identified in the abdomen or pelvis ECHO (03/02/20): Limited echo to assess left ventricular function. There is concentric remodeling of the left ventricle. The left ventricle is normal size. Left ventricular segmental wall motion is normal. Left ventricular systolic function is normal with an ejection fraction by Biplane Method of Discs of 68 %. ASSESSMENT/PLAN: JALIL LUIS is a 49 year old male, who is Day +141 (Day 0 is 10/20/19) of an autologous peripheral blood stem cell transplant with a 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 SYSTEMS: Marginal Zone Lymphoma in CR2 pre-transplant Schema: 5A Prep: BEAM, Cell count 10.4 x 10^6 CD34+cells/kg in 5 bags; day [address] A/P -- BMBx completed (03/03) -Transfusion threshold: Hgb > 7; Plt > 10; CMV +, transfusion pre meds: none needed -Engraftment: ANC day +9 (10/29/19); plt engraftment 11/03/19 (day +14) OI prophylaxis: Bacterial:??Hold Pen VK d/t escalation of antibiotics PJP:??Bactrim DS MWF Viral: Valtrex 500mg BID Covid -tested positive early January, asymptomatic at that time -Inflammatory markers sent (03/03) -Covid from bronch 03/07 and PROVISIONING ANALYST swab 03/07/ came back positive -remdesivir started 03/08 - convalescent plasma, patient refused Persistent Fevers -BC Q24 when febrile - IgG - 209 - plan to replace when stable - CT C/A/P, results above - ID consult, appreciate recs - Completed 7D course of cem and vanco on 03/08/20 Hypoxia 03/09/20: stable on bipap -intubated 03/06/20 -03/08/20 -pred 90mg (1mg/kg) PO daily for possible BCNU pneumonitis 03/05-03/08/20 -Last CT chest 03/02/20, see above -03/03 BNP 25 and ECHO (03/03) negative -Consult Pulm; Bronch on 03/06/20 Elevated LFT's -hold Tylenol if possible -follow closely Headaches 03/09/20: asked MICU team to add Oxy PRN as has helped before - Neuro consult >LP completed 03/01. Results negative for meningitis Right IJ venous clot 09/27/19 -on Lovenox 120 mg Q12H while inpt - previously on Eliquis 5 mg BID Pertinent Medical History: Anxiety/Depression- Lexapro 10 mg daily Restless Leg Syndrome - Requip 0.25 mg QHS Discharge Planning: Patients preferred contact information: cell Caregiver: sister, girlfriend Preferred D/C Pharmacy: [facility] Intended lodging: home Referring provider: Cesar Tavares Disposition: Remain on 8ICU Vane Romero APRN, TALENT ACQUISITION OPERATIONS MANAGER-C Blood and Marrow Transplant [facility] I personally evaluated and examined Mr. Jalil Luis. I confirmed the alfonso elements of of history and physical examination. I also discussed the assessment and plan in detail with the team on rounds and with the patient. I made some modifications to the above note. I fully concur with the above assessment and plan. Ezio Segal MD External Grinder Tender Department of Internal Medicine Division of Hematology Oncology * Inga Cortez OT - 03/09/2020 8:09 AM CDT [facility] Department of Physical Medicine & Rehabilitation Progress Note Patient: Jalil Luis Med Record Number: [id number] Date of : 1970 Age: [age] year old 03/09/20 0800 Missed Visit Missed Visit Bedrest Patient is currently listed as STRICT BEDREST. Therapy cannot work w/ patient until activity ordershave been updated. Thank you, Inga Cortez OT 03/09/2020 8:10 AM * HuangLavinia queen APRN-CNP - 03/08/2020 8:45 PM CDT 8N PROVISIONING ANALYST discussed via phone with 6 HEEL PRICKER (Senait) that pt is asplenic and need pneumococcal ppx after being taken off Cem & Vanc earlier today. Senait notified MICU [address] order for penicillin VK 250 mg solution Q12hrs, order placed by Kimberley Mendez. PROVISIONING ANALYST will continue to monitor pt. Lavinia DUMONT TALENT ACQUISITION OPERATIONS MANAGER-BC BMT pager [phone] [facility] BMT * Nilo Yun MD - 03/08/2020 2:11 PM CDT [facility] Critical Care Medicine (MICU) Attending Note I saw and evaluated the patient, and agree with the resident's findings and plan except for changesas per my note. See resident's note for details. In addition I note- Patients Inpatient Length of Stay - 12days History of presenting illness: The patient is a 49 year old male with h/o BMT for marginal zone lymphoma was transferred to ICU for respiratory failure Interval History: Extubated today to BiPAP. Tolerating well. Review of Systems : Unobtainable due to patient's respiratory condition. Allergies:Adhesive sensitivity Examination: Relevant Vitals: Vitals: 03/08/20 1117 03/08/20 1130 03/08/20 1200 03/08/20 1300 BP: 144/74 142/71 Pulse: 69 66 71 Resp: 22 18 19 Temp: SpO2: 95% 94% 92% 96% Weight: Height: Intake/Output Summary (Last 24 hours) at 03/08/2020 1411 Last data filed at 03/08/2020 1200 Gross per 24 hour Intake 3347.12 ml Output 2975 ml Net 372.12 ml Physical Examination: Neuro:Awake, follows command. Eyes: Normal sclera ENT: Normal oropharynx Cardiac: Normal S1S2 No new murmurs Pulmonary: Bilateral air entry heard. GI/Abdomen: Soft Non-tender Normal BS No distension palpated Relevant Labs- CBC: Recent Labs Component Name 03/08/20 0023 03/07/20 0005 03/06/20 1816 WBC 10.8* 14.0* 15.3* HGB 10.1* 9.6* 8.8* HCT 30.6* 28.8* 25.4* BMP: Recent Labs Component Name 03/08/20 0223 03/07/20 0005 03/06/20 1816 NA 144 144 141 CL 108* 109* 108* CO2 25 26 24 BUN 14 12 12 CREATININE 0.9 0.9 0.9 CALCIUM 8.0* 8.3* 8.3* PHOS 3.4 2.9 4.4 Hepatic: Recent Labs Component Name 03/08/2022203/07/20 0005 03/06/20 1816 ALT 47 69* 74* AST 17 21 28 TBILI 0.3 0.2 0.2 PROT 5.2* 5.1* 5.0* ALB 1.7* 1.9* 1.8* ALKPHOS 74 75 73 Coagulation: Recent Labs Component Name 03/06/20 1816 02/27/20 2349 02/27/20 0411 PT 14.7 14.2 16.2* INR 1.2 1.1 1.3 Cardiac Markers: Recent Labs Component Name 03/03/20 1247 TROPONINI <0.010 ABGs: No results for input(s): PHART, PO2ART, AKF1ICV, BEART in the last 71702 hours. Imaging Studies: I have personally reviewed radiology images Chest X-ray ASSESMENT AND PLAN : Problem list: ?? Acute respiratory failure with hypoxia ?? COVID 19 pneumonia ?? DVT ?? S/p BMT 1) Neuro:Neuro checks, 2) Respiratory: HOB>30; Monitor for Respiratory distress,S/p Extubation. Started on remdesevir and convalescent plasma. Wean BiPAP to HFNC. 3) Cardiovascular/Hemodynamics: Hemodynamic monitoring. Goal MAP ~65mmHg 4) GI: No active issue 5) Nutrition:NPO For now. 6) Renal/lytes: Strict I/O. Monitor UOP. Keep K+3.5-4.0 meq,Mg~2.0 mg/dl,Po4-3.0-4.0 mmol/l 7) Heme: Monitor H/H.Transfuse if Hb <7.0 gm/dl. On lovenox. 8) ID: On vancomycin and meropenem. 9) Endo:BGM goal 140-160 mg/dl Dvt Prophylaxsis-SCD'S + SQ Lovenox GI prophylaxis: PPI Disposition: ICU monitoring Pt. is at high risk for complications and morbidity or mortality Pt. is critically ill with vital organ impairment or failure There is high probability of imminent or life threatening deterioration in the patient's condition Time involved in the performance of separately billable procedures, teaching, reviewing education material was not counted towards critical care time. Patient is unable or incompetent to participate in giving a history and/or making decisions and discussion is necessary for determining treatment decisions. Overall critical care time provided:36 Mins. * Jayson Friedman MD - 03/08/2020 12:58 PM CDT Images from the original note were not included. [facility] Admitted on: 02/25/2020 9:41 PM Hospital stay: Day 12 Room: [address] [place] [address] Primary Team: Attending: Nilo Yun MD Reason for ID consultation: recent??COVID-19 positive on 01/07/2020 per patient report, fever over the past 2 weeks. 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 ID is called for consult regarding management of recent positive??COVID- 19 and fever. LP on 03/01 with negative finding. SUBJECTIVE & INTERVAL HISTORY: Still had fever. On vent with FiO2 60%. Sedated. Current Abx Iv meropenum 03/03- Iv vancomycin 02/25-?? Valacyclovir?? Prior Abx: Penicillin VK PO ??Cefepime (02/25/20 - 03/03 ) Inpatient Medications ??? 0.9% NaCl 3 mL Intracatheter q8h ??? albuterol HFA 2 puff Inhalation q4h ??? artificial tears Each Eye q8h ??? chlorhexidine 15 mL Mouth/Throat BID ??? dexamethasone 6 mg Oral QDAY ??? enoxaparin 120 mg Subcutaneous q12h ??? EPINEPHrine ??? lidocaine ??? lidocaine viscous ??? meropenem 1,000 mg Intravenous q8h ??? pantoprazole 40 mg Intravenous QDAY ??? remdesivir (GS-53021) infusion 200 mg Intravenous Once Followed by ??? [START ON 03/09/2020] remdesivir ([id number]) infusion 100 mg Intravenous q24h ??? trimethoprim-sulfamethoxazole 160 mg Intravenous MON, WED AND FRI ??? valACYclovir 500 mg Enteral Tube BID 0.9% NaCl IV, , Last Rate: 100 mL/hr at 03/08/20 0656 dexmedetomidine, 0-1.5 mcg/kg/hr, Last Rate: 0.06 mcg/kg/hr (03/08/20 1157) propofol, 0-25 mcg/kg/min, Last Rate: Stopped (03/08/20 1049) PRN Medications SALINE LOCK, INSERT AND MAINTAIN AND 0.9% NaCl AND 0.9% NaCl ??? acetaminophen ??? fentaNYL (PF) ??? magnesium sulfate ??? ondansetron (disintegrating) ??? ondansetron ??? prochlorperazine ??? prochlorperazine ??? propofol AND propofol OBJECTIVE: Vital Signs: BP 144/74 Pulse 66 Temp 100.1 ??F (37.8 ??C) (Axillary) Resp 18 Ht 5' 7.01 (1.702 m) Wt 267 lb 3.2oz (121.2 kg) SpO2 92% BMI 41.84 kg/m2 Temp (24hrs), Av.6 ??F (38.1 ??C), Min:100 ??F (37.8 ??C), Max:101.1 ??F (38.4 ??C) I/O: Intake/Output Summary (Last 24 hours) at 03/08/2020 1258 Last data filed at 03/08/2020 1200 Gross per 24 hour Intake 3810.87 ml Output 3725 ml Net 85.87 ml Physical Exam: General: sedated, on vent Neck: Supple, no LAD, no JVD, trachea midline Lungs:coarse BS bilateraly Heart: RRR, normal S1 and S2, no murmur Abdomen: Soft, non-distended, non-tender, +BS Neurologic:no focal deficits Extremities: No clubbing, cyanosis, or edema Lines: PIV Condom cath NG tube LABS CBC: Recent Labs Component Name 03/08/20 0023 03/07/20 0005 03/06/20 1816 WBC 10.8* 14.0* 15.3* RBC 3.53* 3.36* 3.02* HGB 10.1* 9.6* 8.8* HCT 30.6* 28.8* 25.4* MCV 86.7 85.7 84.1 BMP: Recent Labs Component Name 03/08/20 0223 03/07/20 0005 03/06/20 1816 NA 144 144 141 CL 108* 109* 108* CO2 25 26 24 BUN 14 12 12 CREATININE 0.9 0.9 0.9 ALB 1.7* 1.9* 1.8* PROT 5.2* 5.1* 5.0* estimated creatinine clearance is 123.7 mL/min (based on SCr of 0.9 mg/dL). LFTs: Recent Labs Component Name 03/08/20 0223 03/07/20 0005 03/06/20 1816 03/05/20 2353 03/04/20 2327 03/03/20 2345 03/03/20 0014 03/01/20 2352 02/29/20 2334 02/29/20 0012 02/27/20 2349 02/27/20 0411 02/26/20 0042 11/15/19 0911 11/11/19 1231 11/04/19 0858 11/01/19 0909 10/30/19 1115 10/29/19 0002 10/28/19 0000 10/27/19 0007 10/26/19 0012 10/25/19 0013 10/24/19 0015 10/23/19 0031 10/22/19 0015 10/20/19 2359 10/20/19 0041 10/19/19 0021 10/17/19 2343 10/17/19 0020 10/16/19 0002 10/15/19 0019 10/13/19 2319 10/13/19 0951 09/30/19 1115 09/09/19 1242 08/26/19 1345 08/19/19 0542 08/18/19 0555 07/26/19 1248 06/28/19 1351 06/09/19 1341 05/24/19 1206 03/22/19 1500 ALKPHOS 74 75 73 81 90 83 82 86 87 89 97 109 110 102 108 128 124 119 102 95 84 69 72 64 64 73 77 8082 86 83 90 104 126 137 155* 108 108 68 65 74 63 70 65 125 ALT 47 69* 74* 93* 70* 65* 90* 94* 95* 40 29 29 31 22 29 42 47 48 43 54 53 46 56* 68* 77* 103* 122*117* 137* 76* 70* 40 33 49 46 58* 36 48 35 40 68* 31 30 31 22 AST 17 21 28 47* 39* 24 31 29 59* 26 22 22 29 15 18 26 25 27 14 18 17 12 12 14 19 23 50* 28 56* 25 29 19 15 21 20 23 20 31 29 31 31 19 22 19 20 Results for JALIL LUIS ( ) as of 03/01/2020 12:20 Ref. Range 03/01/2020 10:39 03/01/2020 10:48 Glucose,CSF-STAT Latest Ref Range: 40 - 70 mg/dL 81 (H) Protein CSF Latest Ref Range: 15 - 45 mg/dL 20 Xanthochromia Fluid Latest Ref Range: Negative Negative Volume Fluid Latest Units: mL 3.0 Color Fluid Latest Ref Range: Colorless, Straw Colorless Clarity Fluid Latest Ref Range: Clear Clear Differential Unknown Manual Differential to follow. RBC Calculation Latest Units: /uL 1 WBC Calculation Fluid Latest Ref Range: 0 - 5 /uL 1 Lymphocytes % Fluid Latest Units: % 46 Monocytes % Fluid Latest Units: % 50 Macrophages % Fluid Latest Units: % 4 Results for JALIL LUIS ( ) as of 03/06/2020 11:04 Ref. Range 03/03/2020 12:47 LDH Total Latest Ref Range: 125 - 243 Units/L 468 (H) C-Reactive Protein Latest Ref Range: <=0.5 mg/dL 9.1 (H) Fibrinogen Clauss Latest Ref Range: 200 - 400 mg/dL 584 (H) D-Dimer Quantitative Latest Ref Range: <=0.50 mcg/mL FEU 1.20 (H) Results for JALIL LUIS ( ) as of 03/08/2020 12:59 Ref. Range 03/08/2020 02:23 C-Reactive Protein Latest Ref Range: <=0.5 mg/dL 20.0 (H) Osmolality Calculated Latest Ref Range: 270 - 300 mOsm/kg 298 LDH Total Latest Ref Range: 125 - 243 Units/L 518 (H) MICROBIOLOGY: RESPIRATORY PATHOGEN PANEL BY PCR 02/25/20: Not detected ?? SARS-COV-2 (COVID-19) 02/25/20, 02/26. 03/04: negative ?? 02/25/20, : COVID-19 Ab IgG: negative ?? 02/26/20: CMV PCR Quant Blood: negative EBV PCR Quant Blood: negative ADENOVIRUS PCR Quant Blood: in process Aspergillus galactomannon Ag negative Toxoplasma IgM/IgG negative?? Toxoplasma PCR pending Microbiology: Blood culture 02/25/20: x 2 no growth ??02/26/20: x 2 no growth Blood AFB culture pending Blood fungal culture pending 03/02 in process 03/03: in process Urine culture 02/25/20: in process UA: WBC 0-5 Cryptococcal Ag negative 02/25 Urine legionella Ag negative Blood PJP PCR pending Beta D glucan pending HISTOPATHOLOGY: Cytology 03/03 bone marrow Flow cytometry Bone marrow, flow cytometric immunophenotypic analysis: - No evidence of non-Hodgkin lymphoma or high-grade myeloid neoplasm. Pathology Final Diagnosis Bone marrow, aspirate, clot section, and core biopsy: - Normocellular marrow with maturing trilineage hematopoiesis. - No morphologic evidence of residual/recurrent non-Hodgkin lymphoma. - See description. ?? Peripheral blood smear: - Normal white blood cell count with absolute neutrophilia. - Normochromic normocytic anemia. - See description. IMAGING & PROCEDURE: Pertinen images independently reviewed; report in chart. CT chest/abd/pelvis 02/25 1. Patchy, peripheral predominant groundglass opacities in [...] process identified in the abdomen or pelvis. ?? MRI brain 02/25 No evidence of acute intracranial findings. ?? CT chest 03/02 1. Altered distribution of prominent geographic groundglass opacities within the upper and lower lung zones bilaterally. This suggests ongoing inflammatory or infectious process, rather than discrete areas of progressive fibrosis. Areas of groundglass can progress to fibrosis, therefore continued follow-up is advised. ?? 2. 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 ?? CXR 03/05 ASSESSMENT & RECOMMENDATIONS: 1. Fever in an autologous peripheral blood stem cell transplant patient and splenectomy: DDx is broad including bacterial, fungal, viral and recurrent lymphoma. His BC negative. Very less likely 2nd to fungal infection. He is autologous transplant patient. So very less likely viral infection with negative respiratory pathogen panel. Negative COVID *3 in nasal pharyngeal swab. Positive COVID from BAL swab (send as nasal pharyngeal swab sample). BAL COVID test is sent out, pending. And his last positive COVID is on 01/06. No contact hx after 01/13. Bone marrow biopsy negative for lymphoma S/p bronchoscopy on 03/06 and BAL cultures are pending. ?This positive COVID is active vs colonization 2. Headache, associated with photophobia and neck pain: Severe, duration ~2 weeks. MRI brain negative. related to his COVID before. Less likely herpes encephalitis with negative MRI brain. Cryptococcus Ag negative. LP with normal WBC, protein, glucose. Meningitis is ruled out. 3. 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 4. 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 Recent??COVID-19 positive on 01/07/2020 per patient report: Not received any treatment or clinical trial for this). COVID-19 Ab IgG not detected may be related to low immune response secondary to his immunosuppressive condition. 6. Renal function: Estimated Creatinine Clearance: 138.1 mL/min (based on SCr of 0.8 mg/dL). 7. 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 No more need for antibiotics now. BAL cultures are negative. Ok to stop meropenum and vancomycinnow ?? Check ferritin, LDH, d dimer, CRP, ESR every 48 hrs. ?? start remdesivir and convalescent plasma for possible severe COVID infection treatment. Steroid is changed to dexamethasone. Lovenox therapeutic dose is started. ?? Will try to obtain viral culture of BAL for COVID to see whether this is active infection. ?? - Follow CBC with manual diff, CMP, and complete urinalysis weekly (at minimum) while on IV antibiotics Primary team: hematology Case was discussed with Dr Damian. >35 minutes spent on the care of this patient. > 50% was spent in counseling and coordinationof care that included the patient and the primay team. Jayson Friedman M.D. Infectious Diseases fellow (Team 1) Pager [phone], cell phone [phone]. You can call or text me for communication. Associated attestation - Joce Damian DO - 03/08/2020 2:15 PM CDT I applied COVID19 protocol to the patient. The case was discussed the patient with the team. I reviewed the fellow's note and agree with the findings and assessment and plan except as noted below. Please see the fellow's note. New Onset Fever and Hypoxia: Febrile w/ increasing O2 requirements 03/02 - 02/03, currently intubated con't to be febrile Currently on vanco/cem. Of note was on dexa from 02/25 - 03/01 and then steroids re-started 03/04. DDx -> CT Chest w/ worsening GGO as compared to admission: S/P 7 days of vanco and cefepime. Less likely aspiration as no AMS or vomiting. Urine legionella negative. Of notes worsening resp status and feverafter steroids have been stopped, ?inflammatory process. S/P bronch w/ BAL on 03/06; PJP/Nocardia PCR, GM negative, bacteria cx NG, and additional infectious workup pending. Given the acuity of the symptoms less likely PJP, fungitell pending and serum PJP PCR negative. Given his underlying autologoustx, less likely adeno (serum PCR negative), HHV6, CMV, or fungal. ?cardiac component mariela in the setting of recent COVID however BNP WNL. Most recent echo 08/2019 w/ EF in mid 50s. BAL +robyn for COVID. DDx -> acute infection vs residual genetic material given initial infection reportedly on 01/07/20. COVID PROVISIONING ANALYST swab negative x 3, 4th pending, and initially mildly elevated inflammatory dhillon. Currently receiving remdesivir and being considered for convalescent plasma. Monitor inflammatory markers q48h. Will also look into sending BAL for COVID culture to confirm as culture is the gold standard for active infection. ?relapsed lymphoma mariela in the setting of dexa x 4 days and the extended period of fevers patient was having prior to admission. BMBx and flow unremarkable. BCx NGTD UE and LE Dupplex consistent w/ chronic RIJ DVT Hx of COVID: Dx in beginning of January 2020, therefore constellation of current symptoms less likely related given prolonged timeline. Serology negative however he just recently underwent an autologoustherefore this is expected. CT Chest on admission w/ B/L GGO which may be consistent w/ COVID. Fever on Admission: Resolved. On dexa + vanco/cefepime. DDx -> Resp status stable on RA: CT Chest on admision w/ B/L GGO likely consistent w/ recent COVID infection however S/P 7 days of vanco/cefepime which would treat bacterial superimposed infections. RPP, GM, toxo, histo, blasto negative. COVID x 3 negative. COOPER w/ concerns of meningitis: S/P LP unremarkable for meningitis. CSF crypto and HSV negative. MRI Brain unremarkable. BCx NGTD Leukocytosis: Improving. Initially 2/2 dexa and was improving however there was a pause in dexa treatment and has now been re-started which could explain the fluctuations recently F/U on bronch studies and repeat COVID PROVISIONING ANALYST swab Consider D/C vanco and cem as no evidence of MDR GNR on BAL and received sufficient therapy w/ vanco/cefepime initially W/ continued fever would still check BCx and UA/UCx * Joe Dennison MD - 03/08/2020 11:[address] Robison and I discussed with Nataly Luis, his sister, about starting convalescent plasma/remdesivir. I provided the fact sheets for both to her overnight. We answered her questions, and Nataly is agreeable to giving him Remdesivir & Convalescent plasma. * Amy Baron RN - 03/08/2020 9:13 AM CDT Will provide oral care Q2H and PRN. * Alecia Low RCP - 03/08/2020 8:57 AM CDT ETT will be secured via baum device to maintain proper tube position. Size 9.0 ETT is currently secured via baum at 24 cm at [facility]. Pt will be monitored for secretions and will be suctioned as needed to maintain patent airway. Vent: Spont PS 5 +10 60% Breath sounds: clear t/o Suctioned x2: No secretions. Extubation procedure: Pt suctioned orally and via ETT. Cuff deflated and + cuff leak noted. Pt successfully extubated. No stridor noted. Pt placed on Bipap 20/12 60%. * Shalini Segal MD - 03/08/2020 8:21 AM CDT Autologous Hematopoietic Stem Cell Daily Note: PATIENT IDENTIFIERS: JALIL LUIS is a 49 year old male who is Day +140 (Day 0 is 10/20/19) of an autologous peripheral blood stem cell transplant with a 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 INTERVAL HISTORY: Pt still on vent Alert and Follows command Febrile overnight, Tmax of 101.1. temp better this AM Will be extubated today ROS: A comprehensive review of systems was negative except for: as noted above MEDICATIONS FOR CURRENT ENCOUNTER: SCHEDULED MEDICATIONS: Followed by 0.9% NaCl injection 3 mL, Intracatheter, q8h albuterol HFA (PROVENTIL;VENTOLIN;PROAIR) 108 (90 Base) MCG/ACT inhaler 2 puff, Inhalation, q4h artificial tears ophthalmic ointment, Each Eye, q8h chlorhexidine (PERIDEX) 0.12 % oral solution 15 mL, Mouth/Throat, BID dexamethasone (DECADRON) tablet 6 mg, Oral, QDAY enoxaparin (LOVENOX) injection 120 mg, Subcutaneous, q12h meropenem (MERREM) 1,000 mg in sterile water (PF) 20 mL syringe, Intravenous, q8h pantoprazole (PROTONIX) injection 40 mg, Intravenous, QDAY remdesivir 200 mg in 0.9% NaCl IV 250 mL infusion, Intravenous, Once sulfamethoxazole-trimethoprim (BACTRIM) 160 mg in dextrose 5 % 260 mL IVPB, Intravenous, FRI, FRI AND FRI valACYclovir (VALTREX) tablet 500 mg, Enteral Tube, BID ?? [START ON 03/09/2020] remdesivir 100 mg in 0.9% NaCl IV 250 mL infusion, Intravenous, q24h CONTINUOUS MEDICATIONS: 0.9% NaCl infusion, Intravenous, Continuous dexmedetomidine (PRECEDEX) 400 mcg in 100 mL infusion premix, Intravenous, Continuous ?? propofol (DIPRIVAN) infusion, Intravenous, Continuous PRN MEDICATIONS: 0.9% NaCl injection 1-10 mL, Intracatheter, PRN acetaminophen (TYLENOL) tablet 650 mg, Oral, q4h PRN fentaNYL (PF) (SUBLIMAZE) injection 50 mcg, Intravenous, q15 min PRN magnesium sulfate 2 g in 50 mL bolus, Intravenous, PRN ondansetron (disintegrating) (ZOFRAN ODT) tablet 4 mg, Oral, q8h PRN ondansetron (ZOFRAN) injection 4 mg, Intravenous, q8h PRN prochlorperazine (COMPAZINE) injection 10 mg, Intravenous, q6h PRN prochlorperazine (COMPAZINE) tablet 5 mg, Oral, q8h PRN ?? propofol (DIPRIVAN) bolus from infusion bag 10 mg, Intravenous, BOLUS FROM BAG PRN VITALS: Vitals: 03/08/20 1046 03/08/20 1100 03/08/20 1117 03/08/20 1130 BP: 135/72 Pulse: 68 69 69 Resp: 10 12 22 Temp: SpO2: (S) (!) 86% 92% 95% 94% Weight: Height: Wt Readings from Last 3 Encounters: 03/02/20 121.2 kg (267 lb 3.2 oz) 02/26/20 120.2 kg (265 lb) 11/15/19 123.4 kg (272 lb) Date 03/07/20699 - 03/08/20 0659 03/08/20699 - 03/09/20 0659 Shift 5472-0736 5523-5003 24 Hour Total 3472-7449 5403-7794 24 Hour Total INTAKE I.V.(mL/kg/hr) 2148.9(1.5) 1679.3(1.2) 3828.2(1.3) 485.5 485.5 Tube 180 80 260 60 60 Shift Total(mL/kg) 2328.9(19.2) 1759.3(14.5) 4088.2(33.7) 545.5(4.5) 545.5(4.5) OUTPUT Urine(mL/kg/hr) 2350(1.6) 1725(1.2) 4075(1.4) 350 350 Drains 0 0 Shift Total(mL/kg) 2350(19.4) 1725(14.2) 4075(33.6) 350(2.9) 350(2.9) NET -21.1 34.3 13.2 195.5 195.5 Weight (kg) 121.2 121.2 121.2 121.2 121.2 121.2 PHYSICAL EXAM: General appearance - alert,very ill and intubated Mental status - alert, oriented to person, place, and time Mouth - intubated Chest - on vent Heart -regular on telemetry Abdomen - soft, nontender, nondistended, no masses or organomegaly Neurological - alert, follow simple commands Musculoskeletal - no joint tenderness, deformity or swelling Extremities - peripheral pulses normal, no pedal edema, no clubbing or cyanosis Skin - normal coloration and turgor, no rashes, no suspicious skin lesions noted LABS: Recent Labs Component Name 03/08/20 0023 03/07/20 0005 03/06/20 1816 03/05/20 2353 02/27/20 0411 WBC 10.8* 14.0* 15.3* 16.7* - 7.3 RBC 3.53* 3.36* 3.02* 3.39* - 4.15* HGB 10.1* 9.6* 8.8* 9.8* - 11.9* HCT 30.6* 28.8* 25.4* 28.4* - 35.4* MCV 86.7 85.7 84.1 83.8 - 85.3 MCH 28.6 28.6 29.1 28.9 - 28.7 MCHC 33.0 33.3 34.6 34.5 - 33.6 PLTCOUNT 238 260 246 266 - 402* RDWSD 55.3* 52.1* 50.7* 48.8 - 49.6 RDW 19.5* 17.1* 16.8* 16.2* - 16.1* MPV - 11.6 11.8 11.6 - 10.4 NRBCABS 0.11* 0.09* 0.16* 0.20* - 0.00 NRBCAUTOPCT 1.0* 0.6* 1.0* 1.2* - 0.0 NEUTPCT 87.4* 91.1* 94.1* 92.1* - - LYMPHSPCT 7.6* 3.8* 2.0* 3.7* - - MONOPCT 3.7 4.1 2.8* 3.2 - - EOSPCT 0.0 0.0 0.0 0.0 - - BASOPCT 0.1 0.1 0.1 0.1 - - IMMGRANSPCT 1.2* 0.9 1.0 0.9 - - NEUTABS 9.5* 12.7* 14.4* 15.4* - 6.79 LYMPHS 0.8 0.5* 0.3* 0.6* - 0.44* MONO 0.40 0.57 0.43 0.54 - 0.07* EOS 0.00 0.00 0.00 0.00 - - BASO 0.01 0.01 0.01 0.02 - - TOTCELLCNT - - - - - 100 - = values in this interval not displayed. Recent Labs Component Name 03/08/2022203/07/20 0005 03/06/20 1816 BUN 14 12 12 CREATININE 0.9 0.9 0.9 NA 144 144 141 POTASSIUM 4.1 4.2 4.5 CL 108* 109* 108* CO2 25 26 24 CALCIUM 8.0* 8.3* 8.3* PROT 5.2* 5.1* 5.0* ALB 1.7* 1.9* 1.8* TBILI 0.3 0.2 0.2 ALKPHOS 74 75 73 ALT 47 69* 74* AST 17 21 28 ANIONGAP 15 13 14 BCR 16 13 13 OSMOLALITY 298 298 294 AGRATIO 0.5* 0.6* 0.6* EGFR >60 >60 >60 Recent Labs Component Name 03/08/2022203/07/20 0005 03/06/20 1816 MAGNESIUM 2.2 2.3 2.0 Recent Labs Component Name 03/08/2022203/07/20 0005 03/06/20 1816 PHOS 3.4 2.9 4.4 Pathology: CD4: see epic 02/26 BMBX (03/03/20): Path- Normocellular marrow with maturing trilineage hematopoiesis. No morphologic evidence of residual/recurrent non-Hodgkin lymphoma. Flow-NISHA Cyto- FISH- Infectious Workup Bronch (03/06/20): pending COVID (03/04/20):negative COVID (03/03/20): negative PJP PCR: pending Beta D Glucan: pending Blastomyces: ND Histoplasma blood: pending Histoplasma urine: pending Asperigillus: negative Toxoplasma PCR: negative Bartonella IgG: negative Bartonella IgM: negative Cryptococcus: Negative Urine Legionella: Negative Last BC x2 (03/03): NG at 24 UA with culture (02/25/20): NGTD RVP (02/25/20): ND Covid swab (02/25/20): negative Covid IgG (02/25/20): Negative RADIOLOGY: PCX (03/05/20): Increase in diffuse patchy airspace opacities in bilateral lungs concerning for multifocal pneumonia. Small left pleural effusion is suggested. There is no pneumothorax. The cardiomediastinal silhouette is Normal Venous Duplex (03/03/20): Negative for DVT CT Chest (03/02/30): 1. Altered distribution of prominent geographic groundglass opacities within the upper and lower lung zones bilaterally. This suggests ongoing inflammatory or infectious process, rather than discrete areas of progressive fibrosis. Areas of groundglass can progress to fibrosis, therefore continued follow-up is advised.2. Re-demonstration of nonocclusive thrombus within the left brachiocephalic vein which extends to the superior vena cava CT C/A/P (02/26/20): 1. Patchy, peripheral predominant groundglass opacities in [...] acute process identified in the abdomen or pelvis ECHO (03/02/20): Limited echo to assess left ventricular function. There is concentric remodeling of the left ventricle. The left ventricle is normal size. Left ventricular segmental wall motion is normal. Left ventricular systolic function is normal with an ejection fraction by Biplane Method of Discs of 68 %. ASSESSMENT/PLAN: JALIL LUIS is a 49 year old male, who is Day +139 (Day 0 is 10/20/19) of an autologous peripheral blood stem cell transplant with a 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 SYSTEMS: Marginal Zone Lymphoma in CR2 pre-transplant Schema: 5A Prep: BEAM, Cell count 10.4 x 10^6 CD34+cells/kg in 5 bags; day [address] A/P -- BMBx completed (03/03) -Transfusion threshold: Hgb > 7; Plt > 10; CMV +, transfusion pre meds: none needed -Engraftment: ANC day +9 (10/29/19); plt engraftment 11/03/19 (day +14) OI prophylaxis: Bacterial:??Hold Pen VK d/t escalation of antibiotics PJP:??Bactrim DS MWF Viral: Valtrex 500mg BID Covid -tested positive early January, asymptomatic at that time - Covid negative x2; covid IgG - negative x2 -Inflammatory markers sent (03/03) -Covid from bronch came back positive -remdesivir started 03/08 - convalescent plasma planned for 03/08 Persistent Fevers - IgG - 209 - plan to replace 03/09/20 - CT C/A/P, results above - ID consult, appreciate recs -Escalated from Cefe to Cem (03/04/20) - D/c Vanc (vanc trough on 03/08 @ 0800 - 24.4) Hypoxia -intubated 03/06/20 -will be extubated today 03/08 -Started pred 90mg (1mg/kg) PO daily for possible BCNU pneumonitis 03/05, also received 6mg dex 03/04 and 03/05 -will start to taper prednisone on 03/08, taper by 10mg daily -Last CT chest 03/02/20, see above -03/03 BNP 25 and ECHO (03/03) negative -Consult Pulm; appreciate recs -Bronch 03/06/20, pending Headaches - Neuro consult >LP completed 03/01. Results negative for meningitis > Dex 10mg Q6h, d/c 03/01 Right IJ venous clot 09/27/19 -on Lovenox 120 mg Q12H while inpt - previously on Eliquis 5 mg BID Pertinent Medical History: Anxiety/Depression- Lexapro 10 mg daily Restless Leg Syndrome - Requip 0.25 mg QHS Discharge Planning: Patients preferred contact information: cell Caregiver: sister, girlfriend Preferred D/C Pharmacy: [facility] Intended lodging: home Referring provider: Cesar Tavares Disposition: Remain on 8ICU Keli Evie, AGNP- Blood and Marrow Transplant [facility] I personally evaluated and examined Mr. Jalil Luis. I confirmed the alfonso elements of of history and physical examination. I also discussed the assessment and plan in detail with the team on rounds and with the patient. I made some modifications to the above note. I fully concur with the above assessment and plan. Ezio Segal MD External Grinder Tender Department of Internal Medicine Division of Hematology Oncology * Joe Dennison MD - 03/08/2020 6:17 AM CDT [place] Note Admit Date: 02/25/2020 Length of Stay 12 Day(s) Room 641 Jalil Luis 1970 [id number] CrCl: Estimated Creatinine Clearance: 123.7 mL/min (based on SCr of 0.9 mg/dL). IBW: [place] body weight: 66.1 kg (145 lb 12.2 oz) Adjusted ideal body weight: 88.2 kg (194 lb 5.4 oz) Hospital Course 49 year oldmale [facility] 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 Recent SARS-CoV-2 (+) in the beginning of January as a routine check up. Progressively short of breath and fever 2-3 weeks later and admitted to the hospital 02/24 with complaints of low grade fevers, moderate to severe headache, photophobia, and neck pain x2 weeks. LP on 03/01 with negative findings. On March 04, febrile >102, transitioned to HFNC 40L CT chest noted worsening GGO s/p vanc, cefepime. ?? Patient underwent bronchoscopy with BAL, brushing, transbronchial biopsy, sent bacterial, fungal, viral, PJP, COVID 19, cell counts, cytology. Started on prednisone per BMT service. Patient was intubated in the bronch suite an transferred to the MICU. COVID+ from bronch. Plan to discuss with familyabout Remdesivir & Plasma. Interval History No events overnight. Repeat COVID pending. Objective: Vitals: 03/08/20 0300 03/08/20 0341 03/08/20 0400 03/08/20 0458 BP: 128/74 128/74 Pulse: 55 55 60 57 Resp: 25 25 24 Temp: (!) 101.1 ??F (38.4 ??C) (!) 101.1 ??F (38.4 ??C) SpO2: 93% 95% 93% 95% Weight: Height: Intake/Output Summary (Last 24 hours) at 03/08/2020 0617 Last data filed at 03/08/2020 0200 Gross per 24 hour Intake 3806.08 ml Output 3775 ml Net 31.08 ml Physical Exam: COVID+ patient, refer to attending note for physical exam. Labs: CBC: Recent Labs Lab 03/08/20 0023 WBC 10.8* HGB 10.1* HCT 30.6* MCV 86.7 PLTCOUNT 238 BMP: Recent Labs Lab 03/08/20222 NA 144 POTASSIUM 4.1 CL 108* CO2 25 BUN 14 CREATININE 0.9 CALCIUM 8.0* CMP: Recent Labs Lab 03/08/20222 AST 17 ALT 47 TBILI 0.3 ALKPHOS 74 ALB 1.7* PROT 5.2* IMG: All pertinent imaging reviewed in [facility] MICRO: All pertinent micro results reviewed in [facility] Assessment and Plan Active Problems: Fever Status post autologous bone marrow transplant Ground glass opacity present on imaging of lung Stem cells transplant status Acute respiratory failure with hypoxia Pneumonia due to COVID-19 virus NEURO ??#Sedation Titrate propofol & precedex off today, plan to extubate. Patient is awake & following commands this morning, tolerating PSV 60% 05/08. ?? PULM #AHRF #Hx of COVID (+) #B/l pulmonary infiltrates DDx: Infection, inflammation, medication induced pneumonitis. COVID+ still, will discuss with family today about Convalescent plasma & Remdesivir. Unsure if this acute infx vs residual genetic material from initial infection. Already on prednisone for concern for inflammatory component/pneumonitis. We will continue him on broad spectrum Abx given his immunocompromised status.??Will continue to look out for other micro studies throughout the day. Plan: - Abx: Vanc/Cem (Cem day 5, Vanc day 11) - Will consent - Changed to dexamethasone 6mg. - SARS COVID re-sent will f/u results. - f/u bacterial, fungal, viral, PJP, COVID 19, cell counts, cytology. - Extubate. ?? #OI PPx Bacterial held in setting of concerns for septicemia - PJP: Bactrim DS MWF - Viral: Valtrex 500mg BID ?? CV JUSTIN ?? GI JUSTIN ?? RENAL Strict I/O. Monitor UOP. Keep K+3.5-4.0 meq,Mg~2.0 mg/dl,Po4-3.0-4.0 mmol/l ?? ENDO JUSTIN ?? ID #Fevers Probable COVID, still covering broadly at this time. Repeat COVID pending as there may be componentof material vs acute COVID. - Abx as above. - Tylenol prn. ?? 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 BMT on board to help guide management. ?? Plan: - de-escalated to dexamathasone 6mg today. ?? #Hx of RIJ clot - home eliquis held, on lovenox 120mg BID. Prophylaxis: Lovenox 120mg Diet: Diet orders this encounter Procedures ??? DIET NPO Except: NPO NO EXCEPTIONS Code status: Full Disposition: ABA Dennison MD 03/08/2020 6:17 AM * Nilo Yun MD - 03/07/2020 4:02 PM CDT [facility] Critical Care Medicine (MICU) Attending Note I saw and evaluated the patient, and agree with the resident's findings and plan except for changesas per my note. See resident's note for details. In addition I note- Patients Inpatient Length of Stay - 11days History of presenting illness: The patient is a 49 year old male with h/o BMT for marginal zone lymphoma was transferred to ICU for respiratory failure Interval History: On MV support- attempt to wean oxygen below 60% resulted in hypoxia. COVID test positive. Not a candidate for remdesevir (patient on ventilator support). Already on prednisone. Review of Systems : Unobtainable due to patient intubated. Allergies:Adhesive sensitivity Examination: Relevant Vitals: Vitals: 03/07/20 1200 03/07/20 1300 03/07/20 1347 03/07/20 1400 BP: 107/46 111/62 118/69 Pulse: 102 92 95 89 Resp: 15 24 30 29 Temp: (!) 102.2 ??F (39 ??C) (!) 101.1 ??F (38.4 ??C) SpO2: 91% 96% 99% 97% Weight: Height: Intake/Output Summary (Last 24 hours) at 03/07/2020 1602 Last data filed at 03/07/2020 1442 Gross per 24 hour Intake 3836.02 ml Output 4875 ml Net -1038.98 ml Physical Examination: Neuro:Sedated on MV support Eyes: Normal sclera ENT: Normal oropharynx ETT in position Cardiac: Normal S1S2 No new murmurs Pulmonary: Bilateral air entry heard. GI/Abdomen: Soft Non-tender Normal BS No distension palpated Relevant Labs- CBC: Recent Labs Component Name 03/07/20 0005 03/06/20181503/05/20 2353 WBC 14.0* 15.3* 16.7* HGB 9.6* 8.8* 9.8* HCT 28.8* 25.4* 28.4* BMP: Recent Labs Component Name 03/07/20403/06/20181503/05/20 2353 NA 144 141 138 CL 109* 108* 104 CO2 26 24 22 BUN 12 12 15 CREATININE 0.9 0.9 0.9 CALCIUM 8.3* 8.3* 8.1* PHOS 2.9 4.4 2.0* Hepatic: Recent Labs Component Name 03/07/20403/06/20181503/05/20 2353 ALT 69* 74* 93* AST 21 28 47* TBILI 0.2 0.2 0.3 PROT 5.1* 5.0* 5.2* ALB 1.9* 1.8* 1.9* ALKPHOS 75 73 81 Coagulation: Recent Labs Component Name 03/06/20181502/27/20 2349 02/27/20 0411 PT 14.7 14.2 16.2* INR 1.2 1.1 1.3 Cardiac Markers: Recent Labs Component Name 03/03/20 1247 TROPONINI <0.010 ABGs: No results for input(s): PHART, PO2ART, FUA3DYH, BEART in the last 41264 hours. Imaging Studies: I have personally reviewed radiology images Chest X-ray ASSESMENT AND PLAN : Problem list: ?? Acute respiratory failure with hypoxia ?? COVID 19 pneumonia ?? DVT ?? S/p BMT 1) Neuro:Neuro checks,RAAS Goal 0. On precedex and propofol. 2) Respiratory: HOB>30; Monitor for Respiratory distress, on MV support. Will try to evaluate for plasma therapy. On steroid. 3) Cardiovascular/Hemodynamics: Hemodynamic monitoring. Goal MAP ~65mmHg 4) GI: No active issue 5) Nutrition:NGT feeding. 6) Renal/lytes: Strict I/O. Monitor UOP. Keep K+3.5-4.0 meq,Mg~2.0 mg/dl,Po4-3.0-4.0 mmol/l 7) Heme: Monitor H/H.Transfuse if Hb <7.0 gm/dl. On lovenox. 8) ID: On vancomycin and meropenem. 9) Endo:BGM goal 140-160 mg/dl Dvt Prophylaxsis-SCD'S + SQ Lovenox GI prophylaxis: PPI Disposition: ICU monitoring Pt. is at high risk for complications and morbidity or mortality Pt. is critically ill with vital organ impairment or failure There is high probability of imminent or life threatening deterioration in the patient's condition Time involved in the performance of separately billable procedures, teaching, reviewing education material was not counted towards critical care time. Patient is unable or incompetent to participate in giving a history and/or making decisions and discussion is necessary for determining treatment decisions. Overall critical care time provided:34 Mins. * Jayson Friedman MD - 03/07/2020 1:49 PM CDT Images from the original note were not included. [facility] Note Admitted on: 02/25/2020 9:41 PM Hospital stay: Day 11 Room: [address] [place] [address] Primary Team: Attending: Nilo Yun MD Reason for ID consultation: recent??COVID-19 positive on 01/07/2020 per patient report, fever over the past 2 weeks. 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 ID is called for consult regarding management of recent positive??COVID- 19 and fever. LP on 03/01 with negative finding. SUBJECTIVE & INTERVAL HISTORY: Had bronchoscopy yesterday and was intubated. On vent now. Fever today. Current Abx Iv meropenum 03/03- Iv vancomycin 02/25-?? Valacyclovir?? Prior Abx: Penicillin VK PO ??Cefepime (02/25/20 - 03/03 ) Inpatient Medications ??? 0.9% NaCl IV ??? 0.9% NaCl 3 mL Intracatheter q8h ??? albuterol HFA 2 puff Inhalation q4h ??? artificial tears Each Eye q8h ??? chlorhexidine 15 mL Mouth/Throat BID ??? enoxaparin 120 mg Subcutaneous q12h ??? EPINEPHrine ??? lidocaine ??? lidocaine viscous ??? meropenem 1,000 mg Intravenous q8h ??? pantoprazole 40 mg Intravenous QDAY ??? predniSONE 90 mg Enteral Tube QDAY WITH BREAKFAST ??? trimethoprim-sulfamethoxazole 160 mg Intravenous MON, WED AND FRI ??? valACYclovir 500 mg Enteral Tube BID ??? vancomycin 1,750 mg Intravenous q12h 0.9% NaCl IV, , Last Rate: 100 mL/hr at 03/07/20 1029 dexmedetomidine, 0-1.5 mcg/kg/hr, Last Rate: 0.9 mcg/kg/hr (03/07/20 1313) propofol, 0-100 mcg/kg/min, Last Rate: 25 mcg/kg/min (03/07/20 1207) PRN Medications SALINE LOCK, INSERT AND MAINTAIN AND 0.9% NaCl AND 0.9% NaCl ??? acetaminophen ??? fentaNYL (PF) ??? magnesium sulfate ??? ondansetron (disintegrating) ??? ondansetron ??? prochlorperazine ??? prochlorperazine ??? propofol AND propofol OBJECTIVE: Vital Signs: BP 111/62 Pulse 95 Temp 102.2 ??F (39 ??C) (Axillary) Resp 30 Ht 5' 7.01 (1.702 m) Wt 267 lb 3.2 oz (121.2 kg) SpO2 90% BMI 41.84 kg/m2 Temp (24hrs), Av.8 ??F (37.7 ??C), Min:98.2 ??F (36.8 ??C), Max:103.6 ??F (39.8 ??C) I/O: Intake/Output Summary (Last 24 hours) at 03/07/2020 1349 Last data filed at 03/07/2020 1315 Gross per 24 hour Intake 4386.77 ml Output 4125 ml Net 261.77 ml Physical Exam: General: sedated, on vent Neck: Supple, no LAD, no JVD, trachea midline Lungs:coarse BS bilateraly Heart: RRR, normal S1 and S2, no murmur Abdomen: Soft, non-distended, non-tender, +BS Neurologic:no focal deficits Extremities: No clubbing, cyanosis, or edema Lines: PIV Condom cath NG tube LABS CBC: Recent Labs Component Name 03/07/20403/06/20181503/05/202352 WBC 14.0* 15.3* 16.7* RBC 3.36* 3.02* 3.39* HGB 9.6* 8.8* 9.8* HCT 28.8* 25.4* 28.4* MCV 85.7 84.1 83.8 BMP: Recent Labs Component Name 03/07/20403/06/20181503/05/20 235 NA 144 141 138 CL 109* 108* 104 CO2 26 24 22 BUN 12 12 15 CREATININE 0.9 0.9 0.9 ALB 1.9* 1.8* 1.9* PROT 5.1* 5.0* 5.2* estimated creatinine clearance is 123.7 mL/min (based on SCr of 0.9 mg/dL). LFTs: Recent Labs Component Name 03/07/20403/06/20181503/05/20 2353 03/04/207 03/03/20 2345 03/03/20 0014 03/01/20 2352 02/29/20 2334 02/29/20 0012 02/27/20 2349 02/27/20 0411 02/26/20 0042 11/15/19 0911 11/11/19 1231 11/04/19 0858 11/01/19 0909 10/30/19 1115 10/29/19 0002 10/28/19 0000 10/27/19 0007 10/26/19 0012 10/25/19 0013 10/24/19 0015 10/23/19 0031 10/22/19 0015 10/20/19 2359 10/20/19 0041 10/19/19 0021 10/17/19 2343 10/17/19 0020 10/16/19 0002 10/15/19 0019 10/13/19 2319 10/13/19 0951 09/30/19 1115 09/09/19 1242 08/26/19 1345 08/19/19 0542 08/18/19 0555 07/26/19 1248 06/28/19 1351 06/09/19 1341 05/24/19 1206 03/22/19 1500 ALKPHOS 75 73 81 90 83 82 86 87 89 97 109 110 102 108 128 124 119 102 95 84 69 72 64 64 73 77 80 8286 83 90 104 126 137 155* 108 108 68 65 74 63 70 65 125 ALT 69* 74* 93* 70* 65* 90* 94* 95* 40 29 29 31 22 29 42 47 48 43 54 53 46 56* 68* 77* 103* 122* 117* 137* 76* 70* 40 33 49 46 58* 36 48 35 40 68* 31 30 31 22 AST 21 28 47* 39* 24 31 29 59* 26 22 22 29 15 18 26 25 27 14 18 17 12 12 14 19 23 50* 28 56* 25 29 19 15 21 20 23 20 31 29 31 31 19 22 19 20 Results for JALIL LUIS ( ) as of 03/01/2020 12:20 Ref. Range 03/01/2020 10:39 03/01/2020 10:48 Glucose,CSF-STAT Latest Ref Range: 40 - 70 mg/dL 81 (H) Protein CSF Latest Ref Range: 15 - 45 mg/dL 20 Xanthochromia Fluid Latest Ref Range: Negative Negative Volume Fluid Latest Units: mL 3.0 Color Fluid Latest Ref Range: Colorless, Straw Colorless Clarity Fluid Latest Ref Range: Clear Clear Differential Unknown Manual Differential to follow. RBC Calculation Latest Units: /uL 1 WBC Calculation Fluid Latest Ref Range: 0 - 5 /uL 1 Lymphocytes % Fluid Latest Units: % 46 Monocytes % Fluid Latest Units: % 50 Macrophages % Fluid Latest Units: % 4 Results for JALIL LUIS ( ) as of 03/06/2020 11:04 Ref. Range 03/03/2020 12:47 LDH Total Latest Ref Range: 125 - 243 Units/L 468 (H) C-Reactive Protein Latest Ref Range: <=0.5 mg/dL 9.1 (H) Fibrinogen Clauss Latest Ref Range: 200 - 400 mg/dL 584 (H) D-Dimer Quantitative Latest Ref Range: <=0.50 mcg/mL FEU 1.20 (H) MICROBIOLOGY: RESPIRATORY PATHOGEN PANEL BY PCR 02/25/20: Not detected ?? SARS-COV-2 (COVID-19) 02/25/20, 02/26. 8: negative ?? 02/25/20, : COVID-19 Ab IgG: negative ?? 02/26/20: CMV PCR Quant Blood: negative EBV PCR Quant Blood: negative ADENOVIRUS PCR Quant Blood: in process Aspergillus galactomannon Ag negative Toxoplasma IgM/IgG negative?? Toxoplasma PCR pending Microbiology: Blood culture 02/25/20: x 2 no growth ??02/26/20: x 2 no growth Blood AFB culture pending Blood fungal culture pending 03/02 in process 03/03: in process Urine culture 02/25/20: in process UA: WBC 0-5 Cryptococcal Ag negative 02/25 Urine legionella Ag negative Blood PJP PCR pending Beta D glucan pending HISTOPATHOLOGY: Cytology 03/03 bone marrow Flow cytometry Bone marrow, flow cytometric immunophenotypic analysis: - No evidence of non-Hodgkin lymphoma or high-grade myeloid neoplasm. Pathology Final Diagnosis Bone marrow, aspirate, clot section, and core biopsy: - Normocellular marrow with maturing trilineage hematopoiesis. - No morphologic evidence of residual/recurrent non-Hodgkin lymphoma. - See description. ?? Peripheral blood smear: - Normal white blood cell count with absolute neutrophilia. - Normochromic normocytic anemia. - See description. IMAGING & PROCEDURE: Pertinen images independently reviewed; report in chart. CT chest/abd/pelvis 02/25 1. Patchy, peripheral predominant groundglass opacities in [...] process identified in the abdomen or pelvis. ?? MRI brain 02/25 No evidence of acute intracranial findings. ?? CT chest 03/02 1. Altered distribution of prominent geographic groundglass opacities within the upper and lower lung zones bilaterally. This suggests ongoing inflammatory or infectious process, rather than discrete areas of progressive fibrosis. Areas of groundglass can progress to fibrosis, therefore continued follow-up is advised. ?? 2. 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 ?? CXR 03/05 ASSESSMENT & RECOMMENDATIONS: 1. Fever in an autologous peripheral blood stem cell transplant patient and splenectomy: DDx is broad including bacterial, fungal, viral and recurrent lymphoma. His BC negative. Very less likely 2nd to fungal infection. He is autologous transplant patient. So very less likely viral infection with negative respiratory pathogen panel. Negative COVID *3 in nasal pharyngeal swab. Positive COVID from BAL swab (send as nasal pharyngeal swab sample). BAL COVID test is sent out, pending. And his last positive COVID is on 01/06. No contact hx after 01/13. Bone marrow biopsy negative for lymphoma S/p bronchoscopy on 03/06 and BAL cultures are pending. ?This positive COVID is active vs colonization 2. Headache, associated with photophobia and neck pain: Severe, duration ~2 weeks. MRI brain negative. related to his COVID before. Less likely herpes encephalitis with negative MRI brain. Cryptococcus Ag negative. LP with normal WBC, protein, glucose. Meningitis is ruled out. 3. 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 4. 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 Recent??COVID-19 positive on 01/07/2020 per patient report: Not received any treatment or clinical trial for this). COVID-19 Ab IgG not detected may be related to low immune response secondary to his immunosuppressive condition. 6. Renal function: Estimated Creatinine Clearance: 138.1 mL/min (based on SCr of 0.8 mg/dL). 7. 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 Continue meropenum and vancomycin now ?? Follow up with BAL aerobic, AFB and fungal culture ?? Check ferritin, LDH, d dimer, CRP, ESR every 48 hrs. ?? Consider remdesivir and convalescent plasma for possible severe COVID infection treatment. ?? - Follow CBC with manual diff, CMP, and complete urinalysis weekly (at minimum) while on IV antibiotics Primary team: hematology Case was discussed with Dr Damian. >35 minutes spent on the care of this patient. > 50% was spent in counseling and coordinationof care that included the patient and the primay team. Jayson Friedman M.D. Infectious Diseases fellow (Team 1) Pager [phone], cell phone [phone]. You can call or text me for communication. Associated attestation - Joce Damian DO - 03/07/2020 7:40 PM CDT I applied COVID19 protocol to the patient. The case was discussed the patient with the team. I reviewed the fellow's note and agree with the findings and assessment and plan except as noted below. Please see the fellow's note. New Onset Fever and Hypoxia: Febrile w/ increasing O2 requirements 03/02 - 02/03, currently intubated con't to be febrile Currently on vanco/cem. Of note was on dexa from 02/25 - 03/01 and then steroids re-started 03/04. DDx -> CT Chest w/ worsening GGO as compared to admission: S/P 7 days of vanco and cefepime. Less likely aspiration as no AMS or vomiting. Urine legionella negative. Of notes worsening resp status and feverafter steroids have been stopped, ?inflammatory process. S/P bronch w/ BAL on 03/06; PJP/Nocardia PCR, GM negative, additional infectious workup pending. Given the acuity of the symptoms less likely PJP, fungitell pending and serum PJP PCR negative. Given his underlying autologous tx, less likely adeno (serum PCR negative), HHV6, CMV, or fungal. ?cardiac component mariela in the setting of recent COVIDhowever BNP WNL. Most recent echo 08/2019 w/ EF in mid 50s. BAL +robyn for COVID. DDx -> acute infection vs residual genetic material given initial infection reportedly on 01/07/20. COVID PROVISIONING ANALYST swab negative x 3 and mildly elevated inflammatory dhillon. Currently being evaluated for treatment. Would repeat inflammatory markers and monitor q48h. Will also look into sending BAL for COVID culture to confirm as culture is the gold standard for active infection. ?relapsed lymphoma mariela in the setting of dexa x 4 days and the extended period of fevers patient was having prior to admission. BMBx and flow unremarkable. BCx NGTD UE and LE Dupplex consistent w/ chronic RIJ DVT Hx of COVID: Dx in beginning of January 2020, therefore constellation of current symptoms less likely related given prolonged timeline. Serology negative however he just recently underwent an autologoustherefore this is expected. CT Chest on admission w/ B/L GGO which may be consistent w/ COVID. Fever on Admission: Resolved. On dexa + vanco/cefepime. DDx -> Resp status stable on RA: CT Chest on admision w/ B/L GGO likely consistent w/ recent COVID infection however S/P 7 days of vanco/cefepime which would treat bacterial superimposed infections. RPP negative. GM, toxo negative. Histo, blasto pending. COVID x 3 negative. COOPER w/ concerns of meningitis: S/P LP unremarkable for meningitis. CSF crypto and HSV negative. MRI Brain unremarkable. BCx NGTD Leukocytosis: Initially 2/2 dexa and was improving however there was a pause in dexa treatment and has now been re-started which could explain the fluctuations recently F/U on bronch studies Will repeat COVID swab, PROVISIONING ANALYST, hopefully today to try and confirm if acutely acquired * Amy Baron RN - 03/07/2020 9:25 AM CDT Will assess pain Q2H and within 1 hour of intervention. * Krupa Raines MD - 03/07/2020 8:22 AM CDT COVID Test was added on to the Bronchoalveolar lavage fluid as a sent out lab to [facility]. Result expectedly will be available after 2-4 days. * Shalini Segal MD - 03/07/2020 8:16 AM CDT Autologous Hematopoietic Stem Cell Daily Note: PATIENT IDENTIFIERS: JALIL LUIS is a 49 year old male who is Day +139 (Day 0 is 10/20/19) of an autologous peripheral blood stem cell transplant with a 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 INTERVAL HISTORY: Alert and follows commands Intubated. spont breathing trial currently Plan to extubated today if possible ROS: A comprehensive review of systems was negative except for: as noted above MEDICATIONS FOR CURRENT ENCOUNTER: SCHEDULED MEDICATIONS: 0.9% NaCl injection 3 mL, Intracatheter, q8h albuterol HFA (PROVENTIL;VENTOLIN;PROAIR) 108 (90 Base) MCG/ACT inhaler 2 puff, Inhalation, q4h artificial tears ophthalmic ointment, Each Eye, q8h chlorhexidine (PERIDEX) 0.12 % oral solution 15 mL, Mouth/Throat, BID enoxaparin (LOVENOX) injection 120 mg, Subcutaneous, q12h meropenem (MERREM) 1,000 mg in sterile water (PF) 20 mL syringe, Intravenous, q8h pantoprazole (PROTONIX) injection 40 mg, Intravenous, QDAY predniSONE (DELTASONE) tablet 90 mg, Enteral Tube, QDAY WITH BREAKFAST sulfamethoxazole-trimethoprim (BACTRIM) 160 mg in dextrose 5 % 260 mL IVPB, Intravenous, MON, WED AND FRI valACYclovir (VALTREX) tablet 500 mg, Enteral Tube, BID ?? vancomycin (VANCOCIN) 1,750 mg in 535 mL IVPB, Intravenous, q12h CONTINUOUS MEDICATIONS: 0.9% NaCl infusion, Intravenous, Continuous ?? propofol (DIPRIVAN) infusion, Intravenous, Continuous PRN MEDICATIONS: 0.9% NaCl injection 1-10 mL, Intracatheter, PRN acetaminophen (TYLENOL) tablet 650 mg, Oral, q4h PRN fentaNYL (PF) (SUBLIMAZE) injection 50 mcg, Intravenous, q15 min PRN magnesium sulfate 2 g in 50 mL bolus, Intravenous, PRN ondansetron (disintegrating) (ZOFRAN ODT) tablet 4 mg, Oral, q8h PRN ondansetron (ZOFRAN) injection 4 mg, Intravenous, q8h PRN prochlorperazine (COMPAZINE) injection 10 mg, Intravenous, q6h PRN prochlorperazine (COMPAZINE) tablet 5 mg, Oral, q8h PRN ?? propofol (DIPRIVAN) bolus from infusion bag 10 mg, Intravenous, BOLUS FROM BAG PRN VITALS: Vitals: 03/07/20 0500 03/07/20 0521 03/07/20 0600 03/07/20 0700 BP: 110/70 103/64 114/80 Pulse: 65 77 75 79 Resp: 16 Temp: (!) 100.1 ??F SpO2: 96% 95% 94% Weight: Height: Wt Readings from Last 3 Encounters: 03/02/20 121.2 kg (267 lb 3.2 oz) 02/26/20 120.2 kg (265 lb) 11/15/19 123.4 kg (272 lb) Date 03/06/20699 - 03/07/20 0659 03/07/20699 - 03/08/20 0659 Shift [id number] 6645-5735 24 Hour Total 2140-1073 7708-4415 24 Hour Total INTAKE I.V.(mL/kg/hr) 2170(1.5) 2006.3(1.4) 4176.3(1.4) 57.9 57.9 Tube 60 60 Shift Total(mL/kg) 2170(17.9) 2066.3(17) 4236.3(35) 57.9(0.5) 57.9(0.5) OUTPUT Urine(mL/kg/hr) 3725(2.6) 1575(1.1) 5300(1.8) Drains 50 50 Shift Total(mL/kg) 3725(30.7) 1625(13.4) 5350(44.1) NET -1555 441.3 -1113.7 57.9 57.9 Weight (kg) 121.2 121.2 121.2 121.2 121.2 121.2 PHYSICAL EXAM: Physical Examination: General appearance - chronically ill appearing Mental status - alert, follow simple commands Mouth - intubated Abdomen - non tenderness, not distended Chest: Vented Heart: Regular rhythm on tele Neurological - alert, follows simple commands Musculoskeletal - no joint tenderness, deformity or swelling, no muscular tenderness noted Extremities - peripheral pulses normal, no pedal edema, no clubbing or cyanosis Skin - normal coloration and turgor, no rashes, no suspicious skin lesions noted LABS: Recent Labs Component Name 03/07/20 0005 03/06/20 1816 03/05/20 2353 02/27/20 0411 WBC 14.0* 15.3* 16.7* - 7.3 RBC 3.36* 3.02* 3.39* - 4.15* HGB 9.6* 8.8* 9.8* - 11.9* HCT 28.8* 25.4* 28.4* - 35.4* MCV 85.7 84.1 83.8 - 85.3 MCH 28.6 29.1 28.9 - 28.7 MCHC 33.3 34.6 34.5 - 33.6 PLTCOUNT 260 246 266 - 402* RDWSD 52.1* 50.7* 48.8 - 49.6 RDW 17.1* 16.8* 16.2* - 16.1* MPV 11.6 11.8 11.6 - 10.4 NRBCABS 0.09* 0.16* 0.20* - 0.00 NRBCAUTOPCT 0.6* 1.0* 1.2* - 0.0 NEUTPCT 91.1* 94.1* 92.1* - - LYMPHSPCT 3.8* 2.0* 3.7* - - MONOPCT 4.1 2.8* 3.2 - - EOSPCT 0.0 0.0 0.0 - - BASOPCT 0.1 0.1 0.1 - - IMMGRANSPCT 0.9 1.0 0.9 - - NEUTABS 12.7* 14.4* 15.4* - 6.79 LYMPHS 0.5* 0.3* 0.6* - 0.44* MONO 0.57 0.43 0.54 - 0.07* EOS 0.00 0.00 0.00 - - BASO 0.01 0.01 0.02 - - TOTCELLCNT - - - - 100 - = values in this interval not displayed. Recent Labs Component Name 03/07/20 0005 03/06/20181503/05/20 2353 BUN 12 12 15 CREATININE 0.9 0.9 0.9 NA 144 141 138 POTASSIUM 4.2 4.5 3.8 CL 109* 108* 104 CO2 26 24 22 CALCIUM 8.3* 8.3* 8.1* PROT 5.1* 5.0* 5.2* ALB 1.9* 1.8* 1.9* TBILI 0.2 0.2 0.3 ALKPHOS 75 73 81 ALT 69* 74* 93* AST 21 28 47* ANIONGAP 13 14 16 BCR 13 13 17 OSMOLALITY 298 294 289 AGRATIO 0.6* 0.6* 0.6* EGFR >60 >60 >60 Recent Labs Component Name 03/07/20 0005 03/06/20181503/05/20 2353 MAGNESIUM 2.3 2.0 1.9 Recent Labs Component Name 03/07/20 0005 03/06/20181503/05/20 2353 PHOS 2.9 4.4 2.0* Pathology: CD4: see epic 02/26 BMBX (03/03/20): Path- Normocellular marrow with maturing trilineage hematopoiesis. No morphologic evidence of residual/recurrent non-Hodgkin lymphoma. Flow-NISHA Cyto- FISH- Infectious Workup Bronch (03/06/20): pending COVID (03/04/20):negative COVID (03/03/20): negative PJP PCR: pending Beta D Glucan: pending Blastomyces: ND Histoplasma blood: pending Histoplasma urine: pending Asperigillus: negative Toxoplasma PCR: negative Bartonella IgG: negative Bartonella IgM: negative Cryptococcus: Negative Urine Legionella: Negative Last BC x2 (03/03): NG at 24 UA with culture (02/25/20): NGTD RVP (02/25/20): ND Covid swab (02/25/20): negative Covid IgG (02/25/20): Negative RADIOLOGY: PCX (03/05/20): Increase in diffuse patchy airspace opacities in bilateral lungs concerning for multifocal pneumonia. Small left pleural effusion is suggested. There is no pneumothorax. The cardiomediastinal silhouette is Normal Venous Duplex (03/03/20): Negative for DVT CT Chest (03/02/30): 1. Altered distribution of prominent geographic groundglass opacities within the upper and lower lung zones bilaterally. This suggests ongoing inflammatory or infectious process, rather than discrete areas of progressive fibrosis. Areas of groundglass can progress to fibrosis, therefore continued follow-up is advised.2. Re-demonstration of nonocclusive thrombus within the left brachiocephalic vein which extends to the superior vena cava CT C/A/P (02/26/20): 1. Patchy, peripheral predominant groundglass opacities in [...] acute process identified in the abdomen or pelvis ECHO (03/02/20): Limited echo to assess left ventricular function. There is concentric remodeling of the left ventricle. The left ventricle is normal size. Left ventricular segmental wall motion is normal. Left ventricular systolic function is normal with an ejection fraction by Biplane Method of Discs of 68 %. ASSESSMENT/PLAN: JALIL LUIS is a 49 year old male, who is Day +139 (Day 0 is 10/20/19) of an autologous peripheral blood stem cell transplant with a 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 SYSTEMS: Marginal Zone Lymphoma in CR2 pre-transplant Schema: 5A Prep: BEAM, Cell count 10.4 x 10^6 CD34+cells/kg in 5 bags; day [address] A/P -- BMBx completed (03/03) -Transfusion threshold: Hgb > 7; Plt > 10; CMV +, transfusion pre meds: none needed -Engraftment: ANC day +9 (10/29/19); plt engraftment 11/03/19 (day +14) OI prophylaxis: Bacterial:??Hold Pen VK d/t escalation of antibiotics PJP:??Bactrim DS MWF Viral: Valtrex 500mg BID Covid -tested positive early January, asymptomatic at that time - Covid negative x2; covid IgG - negative x2 -Inflammatory markers sent (03/03) Persistent Fevers - IgG - 209 - plan to replace 03/09/20 - CT C/A/P, results above - ID consult, appreciate recs -Continue Vancomycin -Escalated from Cefe to Cem (03/04/20) Hypoxia -intubated 03/06/20 -Started pred 90mg (1mg/kg) PO daily for possible BCNU pneumonitis 03/05, also received 6mg dex 03/04 and 03/05 -Last CT chest 03/02/20, see above -03/03 BNP 25 and ECHO (03/03) negative -Consult Pulm; appreciate recs -Bronch 03/06/20, pending Headaches - Neuro consult >LP completed 03/01. Results negative for meningitis > Dex 10mg Q6h, d/c 03/01 Right IJ venous clot 09/27/19 -on Lovenox 120 mg Q12H while inpt - previously on Eliquis 5 mg BID Pertinent Medical History: Anxiety/Depression- Lexapro 10 mg daily Restless Leg Syndrome - Requip 0.25 mg QHS Discharge Planning: Patients preferred contact information: cell Caregiver: sister, girlfriend [facility]erred [facility] Intended lodging: home Referring provider: Cesar Tavares Disposition: Remain on 8ICU Vane Romero APRN, TALENT ACQUISITION OPERATIONS MANAGER-C Bone Marrow Transplant [facility] I personally evaluated and examined Mr. Jalil Luis. I confirmed the alfonso elements of of history and physical examination. I also discussed the assessment and plan in detail with the team on rounds and with the patient. I made some modifications to the above note. I fully concur with the above assessment and plan. Ezio Segal MD External Grinder Tender Department of Internal Medicine Division of Hematology Oncology * Neema Pisano RN - 03/07/2020 3:38 AM CDT Problem: Pain/Discomfort Goal: Patient exhibits reduced pain/discomfort as evidenced by pain scores Outcome: Ongoing Goal: Patient uses pharmacological and non-pharmacological pain management strategies. Outcome: Ongoing Goal: Patient verbalizes acceptable level of pain relief and ability to engage in desired activity. Outcome: Ongoing Problem: Fall Risk Goal: Fall risk and fall related injury risk are minimized Outcome: Ongoing Problem: Isolation Goal: Prevent Transmission of Infection Outcome: Ongoing Problem: Isolation Goal: Prevent Transmission of Infection Outcome: Ongoing Problem: Safety related to restraint use Goal: Absence of injury while restrained Outcome: Ongoing Problem: Mechanical Ventilation Goal: Patent airway Outcome: Ongoing Goal: Oral health is maintained or improved Outcome: Ongoing Goal: ET tube will be managed safely Outcome: Ongoing Goal: Ability to express needs and understand communication Outcome: Ongoing Goal: Mobility/activity is maintained at optimum level for patient Outcome: Ongoing * Annika Morgan DO - 03/06/2020 11:03 PM CDT MICU Fellow Admission Plan of Care Mr. Luis is a 49 y/o M with marginal zone lymphoma s/p bone marrow transplant (10/2019), h/o COVID-19 in January, admitted 02/24 with SOB and fevers. He developed worsening hypoxic respiratory failure on the floor requring HFNC. CT Chest with worsening BL patchy GGO. Pulmonary and ID were consulted. He was placed on broad spectrum abx and steroids due to concern for infectious etiology vs pneumonitis. He underwent bronchoscopy today with BAL, transbronchial biopsy and brushing today with anesthesia.Patient required significant vent support during procedure due to hypoxia and remained intubated. He was admitted to the MICU for further care. On admission to MICU, patient intubated, sedated with propofol. BP with MAPs in 60s, sat 97%. Plan: - On MV - switched to PAC due to vent dyssynchrony - titrate down FiO2 - will monitor ABG - wean propofol, suspect contributing to hypotension , add PRN fentanyl - continue meropenem, vancomycin, prednisone and ppx - COVID testing on BAL specimen pending, has been negative this admission - maintain airborne and contact precautions Please refer to MICU resident's note for further assessment and plan Code Status: FULL DVT PPX: Lovenox Annika Morgan DO Pulmonary / Critical Care Fellow Division of Pulmonary, Critical Care, & Sleep Medicine [facility] * Alecia Low RCP - 03/06/2020 5:57 PM CDT ETT will be secured via baum device to maintain proper tube position. Size 9.0 ETT is currently secured via baum at 24 cm at teeth. Pt will be monitored for secretions and will be suctioned as needed to maintain patent airway. Vent: S-CMV 530 RR 12 +10 60% Will continue to monitor pt. * Krupa Raines MD - 03/06/2020 10:17 AM CDT PULMONARY PROGRESS NOTE HPI: Jalil Luis is a 49 year old male with PMHx significant for Marginal zone lymphoma in CR2-pretransplant s/p autologous bone marrow transplant with schema 5A BCNU, Etoposide, Cytarabine, melphalan (10/22/19). Recent SARS-CoV-2 (+) in the beginning of January as a routine check up. Progressively short of breath and fever 2-3 weeks later and admitted to the hospital 02/24. Pulmonary was consulted for management of hypoxic respiratory failure. 03/06: HFNC 40L, 60%, still sob. Current respiratory symptoms: [x] Cough dry [] Phlegm: [] Dyspnea: [x] At rest - worse [x] With exertion Walking distance = mostly in bed except for going to bathroom Stair climbing ability = 0 flights/floors [] Chest pain [] Wheezing [] Orthopnea: head of bed raise 45 degrees [] Paroxysmal nocturnal dyspnea PMH: Past Medical History: Diagnosis Date ??? Diverticulosis [...] ACL RECONSTRUCTION ??? BONE MARROW BIOPSY ??? COLONOSCOPY WITH POLYPECTOMY ??? Knee Arthroscopy Right 2018 with hardware ??? Splenectomy N/A 08/17/2019 N/A; LAPAROSCOPIC SPLENECTOMY POSS OPEN ??? Tonsillectomy ??? VENOUS ACCESS DEVICE (PORT OR CATHETER) Right 2019 subclavian Allergies Allergen Reactions ??? Adhesive Sensitivity Urticaria and Other Electrodes -- welps where stickers are Also, use paper tape MEDs: ZACH MEDS: ??? albuterol HFA 2 puff Inhalation q4h ??? escitalopram 10 mg Oral QDAY ??? meropenem 1,000 mg Intravenous q8h ??? perflutren Lipid Microsphere 0.5 mL Intravenous intra-Procedure multiple ??? predniSONE 90 mg Oral QDAY WITH BREAKFAST ??? rOPINIRole 0.5 mg Oral AT BEDTIME ??? sulfamethoxazole-trimethoprim 1 tablet Oral MON, WED AND FRI ??? valACYclovir 500 mg Oral BID ??? vancomycin 1,750 mg Intravenous q12h INFUSIONS: 0.9% NaCl, , Last Rate: 100 mL/hr at 03/06/20 0335 PRN MEDS: acetaminophen ??? LORazepam ??? magnesium sulfate ??? ondansetron (disintegrating) ??? ondansetron ??? oxyCODONE (immediate release) ??? prochlorperazine ??? prochlorperazine LABs: CBC: Recent Labs Component Name 03/05/20235203/04/20 2327 03/03/20 2345 03/01/20 1039 WBC 16.7* 13.3* 16.4* - - RBC 3.39* 3.70* 3.83* - - HGB 9.8* 10.8* 11.2* - - HCT 28.4* 30.7* 32.1* - - DIFF - - - - Manual Differential to follow. - = values in this interval not displayed. BMP: Recent Labs Component Name 03/05/20 23503/04/20 2327 03/03/20 2345 NA 138 139 136 CL 104 106 103 CO2 22 21* 19* BUN 15 13 14 CREATININE 0.9 0.8 1.1 CALCIUM 8.1* 8.4 7.6* Coagulation: Recent Labs Component Name 02/27/20 2349 02/27/20 0411 09/09/19 1242 PT 14.2 16.2* 12.9 INR 1.1 1.3 1.0 PTT - 37.9 27.4 Cardiac markers: Recent Labs Component Name 03/03/20 1759 03/03/20 1247 TROPONINI - <0.010 BNP 25 - Microbiology Results (Displays last 21 days for this encounter ONLY) Procedure Component Value - Date/Time SARS-COV-2 (COVID-19) IN HOUSE [[id number]] (Normal) Collected: 03/04/20 104 Lab Status: Final result Specimen: Microbiology from Nasopharyngeal Updated: 03/05/20 06 COVID-19 Not detected Narrative: This Real Time RT-PCR assay was developed and its performance characteristics determined by [facility]. This test has been authorized by the Food and Drug administration (FDA)under an Emergency Use Authorization (EUA). This test has been validated [...] 21 U.S[place]C 360bbb-3 (b)(1), unless the authorization isterminated or revoked sooner. CULTURE BLOOD [[id number]] Collected: 03/03/201807 Lab Status: Preliminary result Specimen: Blood Peripheral Updated: 03/05/20 2300 Culture No growth LEGIONELLA ANTIGEN URINE [[id number]] (Normal) Collected: 03/03/201803 Lab Status: Final result Specimen: Urine Updated: 03/04/20 0859 Legionella Antigen Urine Negative Narrative: This assay detects Legionella pneumophila serogroup one (1) antigen. A negative test result does not rule out the possibility of Legionella infection due to other serogroups or species of Legionella.A positive result may indicate a recent or remote infection with serogroup 1. CULTURE BLOOD [[id number]] Collected: 03/03/20 1759 Lab Status: Preliminary result Specimen: Blood Peripheral Updated: 03/05/20 2300 Culture No growth [id number] FUNGITELL BAL/BLOOD [[id number]] Collected: 03/03/20 001 Lab Status: In process Specimen: Microbiology from Blood Updated: 03/03/20 0027 PNEUMOCYSTIS JIROVECI QUANT PCR [[id number]] Collected: 03/03/20 001 Lab Status: In process Specimen: Microbiology from Blood Updated: 03/03/20 0027 CULTURE BLOOD [[id number]] Collected: 03/02/20 1842 Lab Status: Preliminary result Specimen: Blood Peripheral Updated: 03/04/20 2330 Culture No growth CULTURE BLOOD [[id number]] Collected: 03/02/20 1829 Lab Status: Preliminary result Specimen: Blood Peripheral Updated: 03/04/20 2330 Culture No growth HERPES SIMPLEX 1+2 PCR CSF [[id number]] (Normal) Collected: 03/01/20 1241 Lab Status: Final result Specimen: Microbiology from CSF Updated: 03/01/20 1920 Herpes Simplex Virus 1 PCR CSF Not detected Herpes Simplex Virus 2 PCR CSF Not detected CRYPTOCOCCUS ANTIGEN CSF [[id number]] (Normal) Collected: 03/01/20 1116 Lab Status: Final result Specimen: Cerebral spinal fluid from CSF Updated: 03/01/20 1646 Cryptococcus Antigen CSF Negative SARS-COV-2 (COVID-19) IN HOUSE [[id number]] (Normal) Collected: 02/27/20 1641 Lab Status: Final result Specimen: Microbiology from Nasopharyngeal Updated: 02/28/20 1552 COVID-19 Not detected Narrative: This Real Time RT-PCR assay was developed and its performance characteristics determined by [facility]. This test has been authorized by the Food and Drug administration (FDA)under an Emergency Use Authorization (EUA). This test has been validated [...] 21 U.S.C 360bbb-3 (b)(1), unless the authorization isterminated or revoked sooner. TOXOPLASMA GONDII PCR [[id number]] Collected: 02/27/20 041 Lab Status: In process Specimen: Microbiology from Blood Updated: 02/27/20 0417 CULTURE BLOOD [[id number]] Collected: 02/26/20 171 Lab Status: Final result Specimen: Blood Peripheral Updated: 03/03/20 0115 Culture No growth day 5 CULTURE BLOOD FUNGUS [[id number]] Collected: 02/26/20 170 Lab Status: Preliminary result Specimen: Blood Peripheral Updated: 02/28/20 0950 Culture Culture in progress CULTURE BLOOD AFB [[id number]] Collected: 02/26/201704 Lab Status: Preliminary result Specimen: Blood Peripheral Updated: 03/06/20 0750 Culture No acid-fast bacillus isolated CULTURE BLOOD [[id number]] Collected: 02/26/201704 Lab Status: Final result Specimen: Blood Peripheral Updated: 03/03/20 0115 Culture No growth day 5 CYTOMEGALOVIRUS (CMV) QUANTITATIVE PLASMA [[id number]] (Normal) Collected: 02/26/20 1201 Lab Status: Final result Specimen: Blood Updated: 02/28/20 1730 CMV Quant by PCR, Interp Not Detected Narrative: The CMV DNA analysis utilized real-time PCR, and is reported as Not Detected, Detected (<50 IU/mL) [or Detected (<1.70 log IU/mL], 50 - 156,000,000 IU/mL [or 1.70 to 8.19 log IU/mL], or >156,000,000 IU/mL [>8.19 log IU/mL]. The analytic sensitivity (LOD) of the assay is 31.20 IU/mL [1.49 log IU/mL] (100% of samples with this CMV/DNA level were detected). Linear range of the assay is 50 - 156,000,000 IU/ml [or 1.70 to 8.19 log [...] be different between patient populations and laboratories. Therefore, it is important to monitor patients and to follow increases and/or decreases in the level of CMV in multiple blood specimens. The analysis was performed using an US FDA approved test methodology ([facility] RealTime CMV). ISA-JUAN VIRUS QUANT BLOOD STL [[id number]] Collected: 02/26/20 1201 Lab Status: Final result Specimen: Blood Updated: 02/28/20 1427 EBV Quant by PCR, Interp Not Detected Specimen Type Plasma Narrative: DNA isolated from the plasma was analyzed in a qPCR assay to detect and quantify Isa-Juan DNA. An internal control is included to evaluate for PCR inhibition. The quantitative range of this assay is 500 IU/mL to 5,000,000 IU/mL. Values below 500 IU/mL will be reported as Detected (<500 IU/mL). This test was developed and its performance characteristics determined by [facility]. It has not been cleared or approved by the U.S. Food and Drug Administration. The FDA hasdetermined that such clearance or approval is not necessary. The test is used for clinical purposes. It should not be regarded as investigational or for research. This laboratory is certified under the Clinical Laboratory Improvement Amendments of 1988(CLIA-88) as qualified to perform high complexity clinical laboratory testing. CULTURE URINE [[id number]] (Normal) Collected: 02/26/20 0008 Lab Status: Final result Specimen: Urine Clean Catch Updated: 02/27/20 0744 Culture Urine No growth (<100 CFU/mL) CULTURE BLOOD [[id number]] Collected: 02/25/20 2255 Lab Status: Final result Specimen: Blood Peripheral Updated: 03/02/20 0152 Culture No growth day 5 CULTURE BLOOD [[id number]] Collected: 02/25/20 2252 Lab Status: Final result Specimen: Blood Peripheral Updated: 03/02/20 0152 Culture No growth day 5 RESPIRATORY PATHOGEN PANEL BY PCR [[id number]] (Normal) Collected: 02/25/202236 Lab Status: Final result Specimen: Microbiology from Nasopharyngeal Updated: 02/26/20 0521 Adenovirus PCR Not detected Coronavirus PCR Not detected Human Metapneumovirus PCR Not detected Human Rhinovirus/Enterovirus PCR Not detected Influenza A PCR Not detected Influenza B PCR Not detected Parainfluenza Virus 1 PCR Not detected Parainfluenza Virus 2 PCR Not detected Parainfluenza Virus 3 PCR Not detected Parainfluenza Virus 4 PCR Not detected Respiratory Syncytial Virus PCR Not detected Bordetella pertussis PCR Not detected Chlamydia pneumoniae PCR Not detected Mycoplasma pneumoniae PCR Not detected Narrative: This test is able to detect the following human coronaviruses: HKU1, NL63, 229E, and OC43. It will NOT detect 2019 Novel Coronavirus (2019-nCoV). If 2019-nCoV is suspected contact Infection Prevention for isolation and testing guidance. SARS-COV-2 (COVID-19) IN HOUSE [[id number]] (Normal) Collected: 02/25/202236 Lab Status: Final result Specimen: Microbiology from Nasopharyngeal Updated: 02/26/20 1619 COVID-19 Not detected Narrative: This Real Time RT-PCR assay was developed and its performance characteristics determined by [facility]. This test has been authorized by the Food and Drug administration (FDA)under an Emergency Use Authorization (EUA). This test has been validated [...] 21 U.S.C 360bbb-3 (b)(1), unless the authorization isterminated or revoked sooner. PHYSICAL EXAM General: Alert, cooperative, no distress, appears stated age. Throat: Lips, mucosa, and tongue normal. Teeth and gums normal. No thrush. Neck: Supple, symmetrical, trachea midline, no adenopathy, thyroid: no enlargment/tenderness/nodules, no carotid bruit and no JVD. Lungs: Mild crackles bilaterally. Chest wall: No tenderness or deformity. Heart: Regular rate and rhythm, S1, S2 normal, no murmur, click, rub or gallop. Abdomen: Soft, non-tender. Bowel sounds normal. No masses, No organomegaly. Extremities normal, atraumatic, no cyanosis or edema. Pulses: 2+ and symmetric all extremities. Skin: Skin color, texture, turgor normal. No rashes or lesions. Lymph nodes: Cervical, supraclavicular, and axillary nodes normal. Neurologic: grossly normal ASSESSMENT AND PLAN: # Acute hypoxic respiratory failure DDx: infection (superimposed bacterial pneumonia) vs inflammation (idiopathic pneumonia syndrome post bone marrow transplant vs BCNU induced acute interstitial pneumonitis vs other medication inducedpneumonitis) vs organiz # H/o splenectomy on Penicillin V rn long term care # H/o BMT (10/29/19) with treatment with BEAM (BCNU, etoposide, cytarabine and melphalan) # Recent SARS-CoV-2 (early January 2020, repeated x3 negative, last negative 03/04/20) Plan: - Plan for bronchoscopy today with anesthesia with BAL, brushing, transbronchial biopsy. Send for bacterial, fungal cultures, viral, PJP, COVID 19 (if this is possible), cell counts, cytology - Continue antibiotics as recommended by ID (Vancomycin since 02/24, Cefepime 02/24-03/04, Meropenem 03/04) - patient is on prednisone started by BMT service. An MD Olu, PGY Pulmonary and critical care fellow Pager [phone] Associated attestation - Elkin Rosenbaum MD - 03/06/2020 11:47 AM CDT Pulmonary Clinic Note Attestation: Patient seen and examined with Fellow. Please see note for further details. I confirm history, exam, assessment and plan. Lung opacities considering acute pneumonitis vs new atypical infection in setting of immunosuppression. Will proceed with bronchoscopy as above. Elkin Rosenbaum MD 03/06/2020 * Jayson Friedman MD - 03/06/2020 9:56 AM CDT Images from the original note were not included. [facility] Infectious Diseases Progress Note Admitted on: 02/25/2020 9:41 PM Hospital stay: Day 10 Room: [address] [place] [address] Primary Team: Attending: Savanah Bolton APRN-CNP Reason for ID consultation: recent??COVID-19 positive on 01/07/2020 per patient report, fever over the past 2 weeks. 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 ID is called for consult regarding management of recent positive??COVID- 19 and fever. LP on 03/01 with negative finding. SUBJECTIVE & INTERVAL HISTORY: Fever resolved on 03/04 after steroid was started. On 60% FiO2 high flow oxygen. Dry cough. No chest pain, headache or neck pain. No diarrhea. Bronchoscopy is planned this afternoon. Current Abx Iv meropenum 03/03- Iv vancomycin 02/25-?? Valacyclovir?? Prior Abx: Penicillin VK PO ??Cefepime (02/25/20 - 03/03 ) Inpatient Medications ??? albuterol HFA 2 puff Inhalation q4h ??? escitalopram 10 mg Oral QDAY ??? meropenem 1,000 mg Intravenous q8h ??? perflutren Lipid Microsphere 0.5 mL Intravenous intra-Procedure multiple ??? predniSONE 90 mg Oral QDAY WITH BREAKFAST ??? rOPINIRole 0.5 mg Oral AT BEDTIME ??? sulfamethoxazole-trimethoprim 1 tablet Oral MON, WED AND FRI ??? valACYclovir 500 mg Oral BID ??? vancomycin 1,750 mg Intravenous q12h 0.9% NaCl, , Last Rate: 100 mL/hr at 03/06/20 0335 PRN Medications acetaminophen ??? LORazepam ??? magnesium sulfate ??? ondansetron (disintegrating) ??? ondansetron ??? oxyCODONE (immediate release) ??? prochlorperazine ??? prochlorperazine OBJECTIVE: Vital Signs: BP 124/54 Pulse 69 Temp 98.5 ??F (36.9 ??C) (Oral) Resp 20 Ht 5' 7.01 (1.702 m) Wt 267 lb 3.2 oz (121.2 kg) SpO2 92% BMI 41.84 kg/m2 Temp (24hrs), Av.9 ??F (37.2 ??C), Min:98.2 ??F (36.8 ??C), Max:99.7 ??F (37.6 ??C) I/O: Intake/Output Summary (Last 24 hours) at 03/06/2020 0956 Last data filed at 03/06/2020 0916 Gross per 24 hour Intake 3401.99 ml Output 2200 ml Net 1201.99 ml Physical Exam: General: Alert, cooperative Head: Normocephalic and atraumatic Eyes: PERRLA, EOMI, normal conjunctiva, no icterus ENT: Moist mucus membranes, oropharyngeal clear Neck: Supple, no LAD, no JVD, trachea midline Lungs:decreasd BS bilateraly Heart: RRR, normal S1 and S2, no murmur Abdomen: Soft, non-distended, non-tender, +BS Neurologic: Alert & oriented x 4, no focal deficits Extremities: No clubbing, cyanosis, or edema Skin: Warm and dry, no rashes appreciated Psychiatry: Appropriate mood/affect Lines: PIV LABS CBC: Recent Labs Component Name 03/05/20 2353 03/04/20 2327 03/03/20 2345 WBC 16.7* 13.3* 16.4* RBC 3.39* 3.70* 3.83* HGB 9.8* 10.8* 11.2* HCT 28.4* 30.7* 32.1* MCV 83.8 83.0 83.8 BMP: Recent Labs Component Name 03/05/20 2353 03/04/20 2327 03/03/20 2345 NA 138 139 136 CL 104 106 103 CO2 22 21* 19* BUN 15 13 14 CREATININE 0.9 0.8 1.1 ALB 1.9* 2.1* 2.0* PROT 5.2* 5.5* 5.0* estimated creatinine clearance is 123.7 mL/min (based on SCr of 0.9 mg/dL). LFTs: Recent Labs Component Name 03/05/20 2353 03/04/20 2327 03/03/20 2345 03/03/20 0014 03/01/20 2352 02/29/20 2334 02/29/20 0012 02/27/20 2349 02/27/20 0411 02/26/20 0042 11/15/19 0911 11/11/19 1231 11/04/19 0858 11/01/19 0909 10/30/19 1115 10/29/19 0002 10/28/19 0000 10/27/19 0007 10/26/19 0012 10/25/19 0013 10/24/19 0015 10/23/19 0031 10/22/19 0015 10/20/19 2359 10/20/19 0041 10/19/19 0021 10/17/19 2343 10/17/19 0020 10/16/19 0002 10/15/19 0019 10/13/19 2319 10/13/19 0951 09/30/19 1115 09/09/19 1242 08/26/19 1345 08/19/19 0542 08/18/19 0555 07/26/19 1248 06/28/19 1351 06/09/19 1341 05/24/19 1206 03/22/19 1500 ALKPHOS 81 90 83 82 86 87 89 97 109 110 102 108 128 124 119 102 95 84 69 72 64 64 73 77 80 82 86 8390 104 126 137 155* 108 108 68 65 74 63 70 65 125 ALT 93* 70* 65* 90* 94* 95* 40 29 29 31 22 29 42 47 48 43 54 53 46 56* 68* 77* 103* 122* 117* 137* 76* 70* 40 33 49 46 58* 36 48 35 40 68* 31 30 31 22 AST 47* 39* 24 31 29 59* 26 22 22 29 15 18 26 25 27 14 18 17 12 12 14 19 23 50* 28 56* 25 29 19 15 21 20 23 20 31 29 31 31 19 22 19 20 Results for JALIL LUIS ( ) as of 03/01/2020 12:20 Ref. Range 03/01/2020 10:39 03/01/2020 10:48 Glucose,CSF-STAT Latest Ref Range: 40 - 70 mg/dL 81 (H) Protein CSF Latest Ref Range: 15 - 45 mg/dL 20 Xanthochromia Fluid Latest Ref Range: Negative Negative Volume Fluid Latest Units: mL 3.0 Color Fluid Latest Ref Range: Colorless, Straw Colorless Clarity Fluid Latest Ref Range: Clear Clear Differential Unknown Manual Differential to follow. RBC Calculation Latest Units: /uL 1 WBC Calculation Fluid Latest Ref Range: 0 - 5 /uL 1 Lymphocytes % Fluid Latest Units: % 46 Monocytes % Fluid Latest Units: % 50 Macrophages % Fluid Latest Units: % 4 Results for JALIL LUIS ( ) as of 03/06/2020 11:04 Ref. Range 03/03/2020 12:47 LDH Total Latest Ref Range: 125 - 243 Units/L 468 (H) C-Reactive Protein Latest Ref Range: <=0.5 mg/dL 9.1 (H) Fibrinogen Clauss Latest Ref Range: 200 - 400 mg/dL 584 (H) D-Dimer Quantitative Latest Ref Range: <=0.50 mcg/mL FEU 1.20 (H) MICROBIOLOGY: RESPIRATORY PATHOGEN PANEL BY PCR 02/25/20: Not detected ?? SARS-COV-2 (COVID-19) 02/25/20, 02/26. 03/04: negative ?? 02/25/20, : COVID-19 Ab IgG: negative ?? 02/26/20: CMV PCR Quant Blood: negative EBV PCR Quant Blood: negative ADENOVIRUS PCR Quant Blood: in process Aspergillus galactomannon Ag negative Toxoplasma IgM/IgG negative?? Toxoplasma PCR pending Microbiology: Blood culture 02/25/20: x 2 no growth ??02/26/20: x 2 no growth Blood AFB culture pending Blood fungal culture pending 03/02 in process 03/03: in process Urine culture 02/25/20: in process UA: WBC 0-5 Cryptococcal Ag negative 02/25 Urine legionella Ag negative Blood PJP PCR pending Beta D glucan pending HISTOPATHOLOGY: Cytology 03/03 bone marrow Flow cytometry Bone marrow, flow cytometric immunophenotypic analysis: - No evidence of non-Hodgkin lymphoma or high-grade myeloid neoplasm. Pathology pending IMAGING & PROCEDURE: Pertinen images independently reviewed; report in chart. CT chest/abd/pelvis 02/25 1. Patchy, peripheral predominant groundglass opacities in [...] process identified in the abdomen or pelvis. ?? MRI brain 02/25 No evidence of acute intracranial findings. ?? CT chest 03/02 1. Altered distribution of prominent geographic groundglass opacities within the upper and lower lung zones bilaterally. This suggests ongoing inflammatory or infectious process, rather than discrete areas of progressive fibrosis. Areas of groundglass can progress to fibrosis, therefore continued follow-up is advised. ?? 2. 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 ?? CXR 03/05 ASSESSMENT & RECOMMENDATIONS: 1. Fever in an autologous peripheral blood stem cell transplant patient and splenectomy: DDx is broad including bacterial, fungal, viral and recurrent lymphoma. His BC negative. Ground glass opacity in bilateral lungs pm CT C/A/P could 2nd to previous COVID infection. Very less likely 2nd to fungalinfection. He is autologous transplant patient. So very less likely viral infection with negative respiratory pathogen panel. Negative COVID *2 already. And his last positive COVID is on 01/06. No contact hx after 01/13. Very less likely 2nd to COVID induced. His worsen of SOB happened suddenly 2 daysafter he is off steroid. He is already on broad spectrum antibiotics for 7 days. Currently likely causes of fever and worsen of ground glass opacity in lungs are likely ?lymphoma, ?organizaing pneumonitis. 2. Headache, associated with photophobia and neck pain: Severe, duration ~2 weeks. MRI brain negative. related to his COVID before. Less likely herpes encephalitis with negative MRI brain. Cryptococcus Ag negative. LP with normal WBC, protein, glucose. Meningitis is ruled out. 3. 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 4. 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 Recent??COVID-19 positive on 01/07/2020 per patient report: Not received any treatment or clinical trial for this). COVID-19 Ab IgG not detected may be related to low immune response secondary to his immunosuppressive condition. 6. Renal function: Estimated Creatinine Clearance: 138.1 mL/min (based on SCr of 0.8 mg/dL). 7. 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 Continue meropenum and vancomycin now ?? Bone marrow biopsy pathology to follow ?? LP cell count suggested no significant sign of meningitis. Send CSF culture/fungal culture/AFB culture. ?? Pulmonary on consult. Plan for bronch today. Will follow up with result. ?? - Follow CBC with manual diff, CMP, and complete urinalysis weekly (at minimum) while on IV antibiotics Primary team: hematology Case was discussed with Dr Damian. >35 minutes spent on the care of this patient. > 50% was spent in counseling and coordinationof care that included the patient and the primay team. Jayson Friedman M.D. Infectious Diseases fellow (Team 1) Pager [phone], cell phone [phone]. You can call or text me for communication. Associated attestation - Joce Damian DO - 03/06/2020 1:31 PM CDT I applied COVID19 protocol to the patient. The case was discussed the patient with the team. I reviewed the fellow's note and agree with the findings and assessment and plan except as noted below. Please see the fellow's note. New Onset Fever and Hypoxia: Febrile w/ increasing O2 requirements 03/02 - 02/03, currently on high-flow and febrile today. Currently on vanco/cem. Of note was on dexa from 02/25 - 03/01 and then steroids re-started 03/04. DDx -> CT Chest w/ worsening GGO as compared to admission: S/P 7 days of vanco and cefepime. Less likely aspiration as no AMS or vomiting. Urine legionella negative. Of notes worsening resp status and feverafter steroids have been stopped, ?inflammatory process. Less likely residual COVID w/ PCR negativex 3 and mildly elevated inflammatory dhillon. Given the acuity of the symptoms less likely PJP, fungitell pending and serum PJP PCR negative. Given his underlying autologous tx, less likely adeno (serum PCR negative), HHV6, CMV, or fungal. ?cardiac component mariela in the setting of recent COVID howeverBNP WNL. Most recent echo 08/2019 w/ EF in mid 50s. ?relapsed lymphoma mariela in the setting of dexa x 4 days and the extended period of fevers patient was having prior to admission BCx NGTD UE and LE Dupplex consistent w/ chronic RIJ DVT Hx of COVID: Dx in beginning of January 2020, therefore constellation of current symptoms less likely related given prolonged timeline. Serology negative however he just recently underwent an autologoustherefore this is expected. CT Chest on admission w/ B/L GGO which may be consistent w/ COVID. Fever on Admission: Resolved. On dexa + vanco/cefepime. DDx -> Resp status stable on RA: CT Chest on admision w/ B/L GGO likely consistent w/ recent COVID infection however S/P 7 days of vanco/cefepime which would treat bacterial superimposed infections. RPP negative. GM, toxo negative. Histo, blasto pending. COVID x 3 negative. COOPER w/ concerns of meningitis: S/P LP unremarkable for meningitis. CSF crypto and HSV negative. MRI Brain unremarkable. BCx NGTD Leukocytosis: Initially 2/2 dexa and was improving however there was a pause in dexa treatment and has now been re-started which could explain the fluctuations recently F/U on bronch studies * Rafaela Sood, JOSE DAVID-SEWING DEMONSTRATOR - 03/06/2020 7:05 AM CDT Autologous Hematopoietic Stem Cell Daily Note: PATIENT IDENTIFIERS: JALIL LUIS is a 49 year old male who is Day +138 (Day 0 is 10/20/19) of an autologous peripheral blood stem cell transplant with a 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 INTERVAL HISTORY: Tired this morning States BARNES is the same, denies feeling SOB at rest Cough is more frequent than before but still non-productive Denies headache at this time Denies N/V/D and abdominal pain Reports feeling lightheaded when he gets up Appetite is good Happy about not having any more fevers since 03/04 ROS: A comprehensive review of systems was negative except for: as noted above MEDICATIONS FOR CURRENT ENCOUNTER: SCHEDULED MEDICATIONS: albuterol HFA (PROVENTIL;VENTOLIN;PROAIR) 108 (90 Base) MCG/ACT inhaler 2 puff, Inhalation, q4h escitalopram (LEXAPRO) tablet 10 mg, Oral, QDAY meropenem (MERREM) 1,000 mg in sterile water (PF) 20 mL syringe, Intravenous, q8h perflutren Lipid Microsphere (DEFINITY) injection SUSP 0.5 mL, Intravenous, intra-Procedure multiple predniSONE (DELTASONE) tablet 90 mg, Oral, QDAY WITH BREAKFAST rOPINIRole (REQUIP) tablet 0.5 mg, Oral, AT BEDTIME sulfamethoxazole-trimethoprim (BACTRIM DS; SEPTRA DS) 800-160 MG tablet 1 tablet, Oral, MON, WED AND FRI valACYclovir (VALTREX) tablet 500 mg, Oral, BID vancomycin (VANCOCIN) 1,750 mg in 535 mL IVPB, Intravenous, q12h [COMPLETED] LORazepam (ATIVAN) injection 1 mg, Intravenous, Once ?? [] enoxaparin (LOVENOX) injection 120 mg, Subcutaneous, q12h CONTINUOUS MEDICATIONS: ?? 0.9% NaCl infusion, Intravenous, Continuous PRN MEDICATIONS: acetaminophen (TYLENOL) tablet 650 mg, Oral, q4h PRN LORazepam (ATIVAN) injection 1 mg, Intravenous, AT BEDTIME PRN magnesium sulfate 2 g in 50 mL bolus, Intravenous, PRN ondansetron (disintegrating) (ZOFRAN ODT) tablet 4 mg, Oral, q8h PRN ondansetron (ZOFRAN) injection 4 mg, Intravenous, q8h PRN oxyCODONE (immediate release) (ROXICODONE) tablet 5 mg, Oral, q4h PRN prochlorperazine (COMPAZINE) injection 10 mg, Intravenous, q6h PRN ?? prochlorperazine (COMPAZINE) tablet 5 mg, Oral, q8h PRN VITALS: Vitals: 03/05/20 1919 03/05/20 2333 03/05/20 2336 03/06/20 0330 BP: 113/74 131/82 117/72 Pulse: 89 87 86 74 Resp: Temp: 98.8 ??F 98.2 ??F 98.8 ??F SpO2: 91% (!) 83% 94% 93% Weight: Height: Wt Readings from Last 3 Encounters: 03/02/20 121.2 kg (267 lb 3.2 oz) 02/26/20 120.2 kg (265 lb) 11/15/19 123.4 kg (272 lb) Date 03/05/20699 - 03/06/20 0659 03/06/20 07 - 03/07/20 0659 Shift 1484-2870 1113-8448 24 Hour Total 1923-9649 6199-7275 24 Hour Total INTAKE P.O. 1780 1780 I.V.(mL/kg/hr) 4738.4(3.3) 4738.4(1.6) Shift Total(mL/kg) 6518.4(53.8) 6518.4(53.8) OUTPUT Urine(mL/kg/hr) 2225(1.5) 1525(1) 3750(1.3) Shift Total(mL/kg) 2225(18.4) 1525(12.6) 3750(30.9) NET 4293.4 -1525 2768.4 Weight (kg) 121.2 121.2 121.2 121.2 121.2 121.2 PHYSICAL EXAM: General appearance - alert, fatigued, and in no distress Mental status - alert, oriented to person, place, and time, normal mood, behavior, speech, dress, motor activity, and thought processes Mouth - mucous membranes moist, pharynx normal without lesions Chest - wheezes noted bilaterally, rales or rhonchi, symmetric air entry Heart - normal rate, regular rhythm, normal S1, S2, no murmurs, rubs, clicks or gallops Abdomen - soft, nontender, nondistended, no masses or organomegaly Musculoskeletal - no joint tenderness, deformity or swelling Extremities - peripheral pulses normal, no pedal edema, no clubbing or cyanosis Skin - normal coloration and turgor, no rashes, no suspicious skin lesions noted L. PIV- non-tender, no erythema, CDI LABS: Recent Labs Component Name 03/05/20 2353 03/04/20 2327 03/03/20 2345 02/27/20 0411 WBC 16.7* 13.3* 16.4* - 7.3 RBC 3.39* 3.70* 3.83* - 4.15* HGB 9.8* 10.8* 11.2* - 11.9* HCT 28.4* 30.7* 32.1* - 35.4* MCV 83.8 83.0 83.8 - 85.3 MCH 28.9 29.2 29.2 - 28.7 MCHC 34.5 35.2 34.9 - 33.6 PLTCOUNT 266 252 291 - 402* RDWSD 48.8 47.4 48.1 - 49.6 RDW 16.2* 16.0* 16.4* - 16.1* MPV 11.6 10.7 11.3 - 10.4 NRBCABS 0.20* 0.17* 0.76* - 0.00 NRBCAUTOPCT 1.2* 1.3* 4.6* - 0.0 NEUTPCT 92.1* 89.4* 84.0* - - LYMPHSPCT 3.7* 4.6* 6.7* - - MONOPCT 3.2 4.8 6.0 - - EOSPCT 0.0 0.0 0.1 - - BASOPCT 0.1 0.2 0.2 - - IMMGRANSPCT 0.9 1.0 3.0* - - NEUTABS 15.4* 11.9* 13.8* - 6.79 LYMPHS 0.6* 0.6* 1.1 - 0.44* MONO 0.54 0.64 0.99* - 0.07* EOS 0.00 0.00 0.02 - - BASO 0.02 0.02 0.04 - - TOTCELLCNT - - - - 100 - = values in this interval not displayed. Recent Labs Component Name 03/05/20235203/04/20232603/03/20 2345 BUN 15 13 14 CREATININE 0.9 0.8 1.1 NA 138 139 136 POTASSIUM 3.8 4.1 3.7 CL 104 106 103 CO2 22 21* 19* CALCIUM 8.1* 8.4 7.6* PROT 5.2* 5.5* 5.0* ALB 1.9* 2.1* 2.0* TBILI 0.3 0.3 0.4 ALKPHOS 81 90 83 ALT 93* 70* 65* AST 47* 39* 24 ANIONGAP 16 16 18 BCR 17 16 13 OSMOLALITY 289 290 283 AGRATIO 0.6* 0.6* 0.7* EGFR >60 >60 >60 Recent Labs Component Name 03/05/20235203/04/20232603/03/20 2345 MAGNESIUM 1.9 2.3 1.7 Recent Labs Component Name 03/05/20235203/04/20232603/03/20 2345 PHOS 2.0* 2.4 3.3 Pathology: CD4: see epic 02/26 BMBX (03/03/20): Path- Flow-NISHA Cyto- FISH- Infectious Workup COVID (03/04/20):negative COVID (03/03/20): negative PJP PCR: pending Beta D Glucan: pending Blastomyces: pending Histoplasma blood: pending Histoplasma urine: pending Asperigillus: negative Toxoplasma PCR: negative Bartonella IgG: negative Bartonella IgM: negative Cryptococcus: Negative Urine Legionella: Negative BC x2 (03/03): NG at 24 BC x2 (03/02): NGTD BC x 2 (02/25/20): NGTD UA with culture (02/25/20): NGTD RVP (02/25/20): ND Covid swab (02/25/20): negative Covid IgG (02/25/20): Negative RADIOLOGY: PCX (03/05/20): results pending CT C/A/P (02/26/20): 1. Patchy, peripheral predominant groundglass opacities in [...] acute process identified in the abdomen or pelvis ASSESSMENT/PLAN: JALIL LUIS is a 49 year old male, who is Day +138 (Day 0 is 10/20/19) of an autologous peripheral blood stem cell transplant with a 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 SYSTEMS: Marginal Zone Lymphoma in CR2 pre-transplant Schema: 5A Prep: BEAM, Cell count 10.4 x 10^6 CD34+cells/kg in 5 bags; Planned disease evaluation: day [address] A/P -- BMBx completed (03/03) Planned post transplant therapy: none planned at this time -Transfusion threshold: Hgb > 7; Plt > 10; CMV +, transfusion pre meds: none needed -Engraftment: ANC day +9 (10/29/19); plt engraftment 11/03/19 (day +14) OI prophylaxis: Bacterial:??Hold Pen VK d/t escalation of antibiotics PJP:??Bactrim DS MWF Viral: Valtrex 500mg BID Covid/Persistent Fevers -tested positive early January after girlfriend was tested +, didn't have symptoms for 2 weeks, but now has been consistently febrile for several weeks - Covid negative x2; covid IgG - negative x2 - IgG - 209 - not replaced at this time d/t headaches - CT C/A/P, results above -Inflammatory markers sent (03/03) - ID consult, appreciate recs -Continue Vancomycin 1750 Q 12, last trough 03/05 -Escalated from Cefe to Cem 1 gm Q 8 hrs for continued fevers and worsening hypoxia (03/04/20) Hypoxia -Remains on 40L; FIO2 60% -Started pred 90mg (1mg/kg) PO daily for possible BCNU pneumonitis 03/05, also received 6mg dex 03/04 and 03/05 -repeat COVID swab 03/04/20 neg -GGO CT 02/25, repeat CT 03/02 -03/03 BNP 25 and ECHO completed with results pending to r/o cardiac etiology (03/03) -Consult Pulm; appreciate recs -Bronch today 8/3 Headaches - seem to worsen with fevers - Neuro consult d/t concern for meningitis >LP completed 03/01. Results negative for meningitis > Dex 10mg Q6h, d/c 03/01 Anxiety/Depression - Lexapro 10 mg daily Restless Leg Syndrome - Requip 0.25 mg QHS Right IJ venous clot 09/27/19 -Therapeutic lovenox started, plan to hold Friday evening, Friday morning dose for bronch on 03/06 - Eliquis 5 mg BID (Currently held d/t planned bronch Friday) Discharge Planning: Patients preferred contact information: cell Caregiver: sister, girlfriend Preferred D/C Pharmacy: [facility] Intended lodging: home Referring provider: Cesar Tavares Disposition: Remain on 8S for infectious workup Eli Sood APRN, TALENT ACQUISITION OPERATIONS MANAGER-C Bone Marrow Transplant [facility] Associated attestation - Tony Dumont MD - 03/06/2020 10:49 PM CDT I independently interviewed and examined Jalil Luis with the BMT advanced practice provider. I reviewed my findings and assessment with the advanced practice provider and the patient. I reviewed the below note. Please see note for full detail.I agree with the findings and plan of care as documented by the advanced practice provider * Krupa Raines MD - 03/05/2020 4:35 PM CDT PULMONARY PROGRESS NOTE HPI: Jalil Luis is a 49 year old male with PMHx significant for Marginal zone lymphoma in CR2-pretransplant s/p autologous bone marrow transplant with schema 5A BCNU, Etoposide, Cytarabine, melphalan (10/22/19). Recent SARS-CoV-2 (+) in the beginning of January as a routine check up. Progressively short of breath and fever 2-3 weeks later and admitted to the hospital 02/24. Pulmonary was consulted for management of hypoxic respiratory failure. Current respiratory symptoms: [x] Cough dry [] Phlegm: [] Dyspnea: [x] At rest - worse [x] With exertion Walking distance = mostly in bed except for going to bathroom Stair climbing ability = 0 flights/floors [] Chest pain [] Wheezing [] Orthopnea: head of bed raise 45 degrees [] Paroxysmal nocturnal dyspnea PMH: Past Medical History: Diagnosis Date ??? Diverticulosis [...] ACL RECONSTRUCTION ??? BONE MARROW BIOPSY ??? COLONOSCOPY WITH POLYPECTOMY ??? Knee Arthroscopy Right 2018 with hardware ??? Splenectomy N/A 08/17/2019 N/A; LAPAROSCOPIC SPLENECTOMY POSS OPEN ??? Tonsillectomy ??? VENOUS ACCESS DEVICE (PORT OR CATHETER) Right 2019 subclavian Allergies Allergen Reactions ??? Adhesive Sensitivity Urticaria and Other Electrodes -- welps where stickers are Also, use paper tape MEDs: ZACH MEDS: ??? albuterol HFA 2 puff Inhalation q4h ??? escitalopram 10 mg Oral QDAY ??? meropenem 1,000 mg Intravenous q8h ??? perflutren Lipid Microsphere 0.5 mL Intravenous intra-Procedure multiple ??? predniSONE 90 mg Oral QDAY WITH BREAKFAST ??? rOPINIRole 0.5 mg Oral AT BEDTIME ??? sulfamethoxazole-trimethoprim 1 tablet Oral MON, WED AND FRI ??? valACYclovir 500 mg Oral BID ??? vancomycin 1,750 mg Intravenous q12h INFUSIONS: 0.9% NaCl, , Last Rate: 100 mL/hr at 03/05/20 1343 PRN MEDS: acetaminophen ??? LORazepam ??? magnesium sulfate ??? ondansetron (disintegrating) ??? ondansetron ??? oxyCODONE (immediate release) ??? prochlorperazine ??? prochlorperazine LABs: CBC: Recent Labs Component Name 03/04/20 2327 03/03/20 2345 03/03/20 0014 03/01/20 1039 WBC 13.3* 16.4* 15.8* - - RBC 3.70* 3.83* 3.76* - - HGB 10.8* 11.2* 11.0* - - HCT 30.7* 32.1* 31.8* - - DIFF - - - - Manual Differential to follow. - = values in this interval not displayed. BMP: Recent Labs Component Name 03/04/20 2327 03/03/20 2345 03/03/20 0014 NA 139 136 134* CL 106 103 103 CO2 21* 19* 18* BUN 13 14 17 CREATININE 0.8 1.1 1.0 CALCIUM 8.4 7.6* 7.7* Coagulation: Recent Labs Component Name 02/27/20 2349 02/27/20 0411 09/09/19 1242 PT 14.2 16.2* 12.9 INR 1.1 1.3 1.0 PTT - 37.9 27.4 Cardiac markers: Recent Labs Component Name 03/03/20 1759 03/03/20 1247 TROPONINI - <0.010 BNP 25 - Microbiology Results (Displays last 21 days for this encounter ONLY) Procedure Component Value - Date/Time SARS-COV-2 (COVID-19) IN HOUSE [[id number]] (Normal) Collected: 03/04/20 1045 Lab Status: Final result Specimen: Microbiology from Nasopharyngeal Updated: 03/05/20 06 COVID-19 Not detected Narrative: This Real Time RT-PCR assay was developed and its performance characteristics determined by [facility]. This test has been authorized by the Food and Drug administration (FDA)under an Emergency Use Authorization (EUA). This test has been validated [...] 21 U.S.C 360bbb-3 (b)(1), unless the authorization isterminated or revoked sooner. CULTURE BLOOD [[id number]] Collected: 03/03/20 180 Lab Status: Preliminary result Specimen: Blood Peripheral Updated: 03/04/20 2300 Culture No growth 24 hours LEGIONELLA ANTIGEN URINE [[id number]] (Normal) Collected: 03/03/20 1804 Lab Status: Final result Specimen: Urine Updated: 03/04/20 0859 Legionella Antigen Urine Negative Narrative: This assay detects Legionella pneumophila serogroup one (1) antigen. A negative test result does not rule out the possibility of Legionella infection due to other serogroups or species of Legionella.A positive result may indicate a recent or remote infection with serogroup 1. CULTURE BLOOD [[id number]] Collected: 03/03/20 175 Lab Status: Preliminary result Specimen: Blood Peripheral Updated: 03/04/20 2300 Culture No growth 24 hours [id number]-O-BZHWHJ FUNGITELL BAL/BLOOD [[id number]] Collected: 03/03/20 0014 Lab Status: In process Specimen: Microbiology from Blood Updated: 03/03/20 0027 PNEUMOCYSTIS JIROVECI QUANT PCR [[id number]] Collected: 03/03/20 0014 Lab Status: In process Specimen: Microbiology from Blood Updated: 03/03/20 0027 CULTURE BLOOD [[id number]] Collected: 03/02/20 1842 Lab Status: Preliminary result Specimen: Blood Peripheral Updated: 03/04/20 2330 Culture No growth CULTURE BLOOD [[id number]] Collected: 03/02/20 1829 Lab Status: Preliminary result Specimen: Blood Peripheral Updated: 03/04/20 2330 Culture No growth HERPES SIMPLEX 1+2 PCR CSF [[id number]] (Normal) Collected: 03/01/20 1241 Lab Status: Final result Specimen: Microbiology from CSF Updated: 03/01/20 1920 Herpes Simplex Virus 1 PCR CSF Not detected Herpes Simplex Virus 2 PCR CSF Not detected CRYPTOCOCCUS ANTIGEN CSF [[id number]] (Normal) Collected: 03/01/20 1116 Lab Status: Final result Specimen: Cerebral spinal fluid from CSF Updated: 03/01/20 1646 Cryptococcus Antigen CSF Negative SARS-COV-2 (COVID-19) IN HOUSE [[id number]] (Normal) Collected: 02/27/20 1641 Lab Status: Final result Specimen: Microbiology from Nasopharyngeal Updated: 02/28/20 1552 COVID-19 Not detected Narrative: This Real Time RT-PCR assay was developed and its performance characteristics determined by [facility]. This test has been authorized by the Food and Drug administration (FDA)under an Emergency Use Authorization (EUA). This test has been validated [...] 21 U.S.C 360bbb-3 (b)(1), unless the authorization isterminated or revoked sooner. TOXOPLASMA GONDII PCR [[id number]] Collected: 02/27/20 0411 Lab Status: In process Specimen: Microbiology from Blood Updated: 02/27/20 0417 CULTURE BLOOD [[id number]] Collected: 02/26/20 171 Lab Status: Final result Specimen: Blood Peripheral Updated: 03/03/20 0115 Culture No growth day 5 CULTURE BLOOD FUNGUS [[id number]] Collected: 02/26/20 170 Lab Status: Preliminary result Specimen: Blood Peripheral Updated: 02/28/20 0950 Culture Culture in progress CULTURE BLOOD AFB [[id number]] Collected: 02/26/20 170 Lab Status: Preliminary result Specimen: Blood Peripheral Updated: 02/27/20 1321 Culture Culture in progress CULTURE BLOOD [[id number]] Collected: 02/26/20 170 Lab Status: Final result Specimen: Blood Peripheral Updated: 03/03/20 0115 Culture No growth day 5 CYTOMEGALOVIRUS (CMV) QUANTITATIVE PLASMA [[id number]] (Normal) Collected: 02/26/20 1201 Lab Status: Final result Specimen: Blood Updated: 02/28/20 1730 CMV Quant by PCR, Interp Not Detected Narrative: The CMV DNA analysis utilized real-time PCR, and is reported as Not Detected, Detected (<50 IU/mL) [or Detected (<1.70 log IU/mL], 50 - 156,000,000 IU/mL [or 1.70 to 8.19 log IU/mL], or >156,000,000 IU/mL [>8.19 log IU/mL]. The analytic sensitivity (LOD) of the assay is 31.20 IU/mL [1.49 log IU/mL] (100% of samples with this CMV/DNA level were detected). Linear range of the assay is 50 - 156,000,000 IU/ml [or 1.70 to 8.19 log [...] be different between patient populations and laboratories. Therefore, it is important to monitor patients and to follow increases and/or decreases in the level of CMV in multiple blood specimens. The analysis was performed using an [place] FDA approved test methodology (Bartholomew RealTime CMV). ISA-JUAN VIRUS QUANT BLOOD STL [[id number]] Collected: 02/26/20 1201 Lab Status: Final result Specimen: Blood Updated: 02/28/20 1427 EBV Quant by PCR, Interp Not Detected Specimen Type Plasma Narrative: DNA isolated from the plasma was analyzed in a qPCR assay to detect and quantify Isa-Juan DNA. An internal control is included to evaluate for PCR inhibition. The quantitative range of this assay is 500 IU/mL to 5,000,000 IU/mL. Values below 500 IU/mL will be reported as Detected (<500 IU/mL). This test was developed and its performance characteristics determined by [facility]. It has not been cleared or approved by the U.S. Food and Drug Administration. The FDA hasdetermined that such clearance or approval is not necessary. The test is used for clinical purposes. It should not be regarded as investigational or for research. This laboratory is certified under the Clinical Laboratory Improvement Amendments of 1988(CLIA-88) as qualified to perform high complexity clinical laboratory testing. CULTURE URINE [[id number]] (Normal) Collected: 02/26/20 0008 Lab Status: Final result Specimen: Urine Clean Catch Updated: 02/27/20 0744 Culture Urine No growth (<100 CFU/mL) CULTURE BLOOD [[id number]] Collected: 02/25/202254 Lab Status: Final result Specimen: Blood Peripheral Updated: 03/02/20 0152 Culture No growth day 5 CULTURE BLOOD [[id number]] Collected: 02/25/202251 Lab Status: Final result Specimen: Blood Peripheral Updated: 03/02/20 0152 Culture No growth day 5 RESPIRATORY PATHOGEN PANEL BY PCR [[id number]] (Normal) Collected: 02/25/202236 Lab Status: Final result Specimen: Microbiology from Nasopharyngeal Updated: 02/26/20 0521 Adenovirus PCR Not detected Coronavirus PCR Not detected Human Metapneumovirus PCR Not detected Human Rhinovirus/Enterovirus PCR Not detected Influenza A PCR Not detected Influenza B PCR Not detected Parainfluenza Virus 1 PCR Not detected Parainfluenza Virus 2 PCR Not detected Parainfluenza Virus 3 PCR Not detected Parainfluenza Virus 4 PCR Not detected Respiratory Syncytial Virus PCR Not detected Bordetella pertussis PCR Not detected Chlamydia pneumoniae PCR Not detected Mycoplasma pneumoniae PCR Not detected Narrative: This test is able to detect the following human coronaviruses: HKU1, NL63, 229E, and OC43. It will NOT detect 2019 Novel Coronavirus (2019-nCoV). If 2019-nCoV is suspected contact Infection Prevention for isolation and testing guidance. SARS-COV-2 (COVID-19) IN HOUSE [[id number]] (Normal) Collected: 02/25/202236 Lab Status: Final result Specimen: Microbiology from Nasopharyngeal Updated: 02/26/20 1619 COVID-19 Not detected Narrative: This Real Time RT-PCR assay was developed and its performance characteristics determined by [facility]. This test has been authorized by the Food and Drug administration (FDA)under an Emergency Use Authorization (EUA). This test has been validated [...] 21 U.S.C 360bbb-3 (b)(1), unless the authorization isterminated or revoked sooner. PHYSICAL EXAM General: Alert, cooperative, no distress, appears stated age. Throat: Lips, mucosa, and tongue normal. Teeth and gums normal. No thrush. Neck: Supple, symmetrical, trachea midline, no adenopathy, thyroid: no enlargment/tenderness/nodules, no carotid bruit and no JVD. Lungs: Mild crackles bilaterally. Chest wall: No tenderness or deformity. Heart: Regular rate and rhythm, S1, S2 normal, no murmur, click, rub or gallop. Abdomen: Soft, non-tender. Bowel sounds normal. No masses, No organomegaly. Extremities normal, atraumatic, no cyanosis or edema. Pulses: 2+ and symmetric all extremities. Skin: Skin color, texture, turgor normal. No rashes or lesions. Lymph nodes: Cervical, supraclavicular, and axillary nodes normal. 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 - Continue antibiotics as recommended by ID (Vancomycin since 02/24, Cefepime 02/24-03/04, Meropenem 03/04 - Agree with Prednisone 90 mg daily started by BMT service 03/05/2020 Krupa Raines MD, PGY Pulmonary and critical care fellow Pager [phone] Associated attestation - William Munoz MD - 03/05/2020 9:38 PM CDT I have seen and examined the patient with the resident and I agree with the findings and plan of care as documented by the resident except as noted below: Ground glass opacities with a recent COVID19 infection, now negative but has persistent fevers and persistent opacities. He could have an atypical infection or organizing pneumonia although CT findings not typical. Continue antibiotics per ID. Infectious work up per ID. Currently on HFNC, 60%. We will keep him on the schedule for a bronchoscopy tomorrow at 3 pm with Anesthesia. Please keep NPO after midnight. Started on Prednisone by primary team, this might affect biopsy results. Will plan forBAL, brushings and +/- TBBx. We will continue to follow. Date of service: 03/05/2020 William Munoz MD Dispatcher [employer] [facility] Division of Pulmonary, Critical Care and Sleep Medicine [facility] Pager: [phone] * Krupa Raines MD - 03/05/2020 12:18 PM CDT Discuss with Dr. Munoz and Dr. Rosenbaum. Will still proceed with plan for bronchoscopy tomorrow as of now. Consent obtained. Will reevaluatein the morning tomorrow. Hold off on further anticoagulation and please discuss with us if there is an urgency to start one.Continue high flow nasal canula and antibiotics per primary team and ID. NPO after midnight Please obtain a chest xray today Detailed note will follow. * Annika Baldwin RN - 03/05/2020 7:51 AM CDT Problem: Pain/Discomfort Goal: Patient exhibits reduced pain/discomfort as evidenced by pain scores Outcome: Ongoing Goal: Patient uses pharmacological and non-pharmacological pain management strategies. Outcome: Ongoing Problem: Fall Risk Goal: Fall risk and fall related injury risk are minimized Outcome: Ongoing Problem: Isolation Goal: Prevent Transmission of Infection Outcome: Ongoing Problem: Isolation Goal: Prevent Transmission of Infection Outcome: Ongoing * Joanna Alida, TRANSCRIBING OPERATOR HEAD-SEWING DEMONSTRATOR - 03/04/2020 6:45 PM CDT Autologous Hematopoietic Stem Cell Daily Note: PATIENT IDENTIFIERS: JALIL LUIS is a 49 year old male who is Day +137 (Day 0 is 10/20/19) of an autologous peripheral blood stem cell transplant with a 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 INTERVAL HISTORY: Awake and resting in bed this morning. Remained afebrile overnight. Verbalizing frustration this morning with frequent interruptions and inability to rest and also frustrated with lack of results and answers for his current illness. Denies SOB at rest Continues to have dry cough and when he coughs, sits up, or exerts himself in any way, he becomes very SOB and takes several minutes to subside. Remains on 40L with FIO2 at 60%. Report chest bone pain when coughing and also pounding headache from coughing. Denies N/V/D. Was able to eat a hamburger last night and tolerated breakfast well this morning. No urinary or bowel issues. Very emotional overall today and tearful at times. ROS: A comprehensive review of systems was negative except for: as noted above MEDICATIONS FOR CURRENT ENCOUNTER: SCHEDULED MEDICATIONS: albuterol HFA (PROVENTIL;VENTOLIN;PROAIR) 108 (90 Base) MCG/ACT inhaler 2 puff, Inhalation, q4h dexamethasone (DECADRON) injection 6 mg, Intravenous, QDAY enoxaparin (LOVENOX) injection 120 mg, Subcutaneous, q12h escitalopram (LEXAPRO) tablet 10 mg, Oral, QDAY meropenem (MERREM) 1,000 mg in sterile water (PF) 20 mL syringe, Intravenous, q8h perflutren Lipid Microsphere (DEFINITY) injection SUSP 0.5 mL, Intravenous, intra-Procedure multiple rOPINIRole (REQUIP) tablet 0.5 mg, Oral, AT BEDTIME sulfamethoxazole-trimethoprim (BACTRIM DS; SEPTRA DS) 800-160 MG tablet 1 tablet, Oral, MON, WED AND FRI valACYclovir (VALTREX) tablet 500 mg, Oral, BID vancomycin (VANCOCIN) 1,750 mg in 535 mL IVPB, Intravenous, q12h [COMPLETED] acetaminophen (TYLENOL) tablet 650 mg, Oral, Once ?? [] iopamidol (ISOVUE 370) 76 % contrast, Intravenous, Contrast - Once CONTINUOUS MEDICATIONS: ?? 0.9% NaCl infusion, Intravenous, Continuous PRN MEDICATIONS: acetaminophen (TYLENOL) tablet 650 mg, Oral, q4h PRN LORazepam (ATIVAN) injection 1 mg, Intravenous, AT BEDTIME PRN magnesium sulfate 2 g in 50 mL bolus, Intravenous, PRN ondansetron (disintegrating) (ZOFRAN ODT) tablet 4 mg, Oral, q8h PRN ondansetron (ZOFRAN) injection 4 mg, Intravenous, q8h PRN oxyCODONE (immediate release) (ROXICODONE) tablet 5 mg, Oral, q4h PRN prochlorperazine (COMPAZINE) injection 10 mg, Intravenous, q6h PRN ?? prochlorperazine (COMPAZINE) tablet 5 mg, Oral, q8h PRN VITALS: Vitals: 03/04/20 2036 03/05/20 0032 03/05/20 0255 03/05/20 0749 BP: 103/74 105/75 131/77 Pulse: 78 71 90 Resp: Temp: 97.2 ??F 97.9 ??F 98 ??F SpO2: 98% 91% 94% 97% Weight: Height: Wt Readings from Last 3 Encounters: 03/02/20 121.2 kg (267 lb 3.2 oz) 02/26/20 120.2 kg (265 lb) 11/15/19 123.4 kg (272 lb) Date 03/04/20699 - 03/05/20 0603/05/20699 - 03/06/20 0659 Shift 8967-4496 8236-7936 24 Hour Total 8866-0914 4640-9246 24 Hour Total INTAKE P.O. 560 560 I.V.(mL/kg/hr) 3686.4 3686.4 Shift Total(mL/kg) 560(4.6) 560(4.6) 3686.4(30.4) 3686.4(30.4) OUTPUT Urine(mL/kg/hr) 2350(1.6) 2350(0.8) Shift Total(mL/kg) 2350(19.4) 2350(19.4) NET -1790 -1790 3686.4 3686.4 Weight (kg) 121.2 121.2 121.2 121.2 121.2 121.2 PHYSICAL EXAM: General appearance - oriented to person, place, and time, in mild to moderate distress and ill-appearing Mental status - alert, oriented to person, place, and time, anxious, agitated Mouth - mucous membranes moist, pharynx normal without lesions Chest - wheezing noted in upper lung irizarry with some fine bibasilar crackles. Heart - normal rate, regular rhythm, normal S1, S2, no murmurs, rubs, clicks or gallops Abdomen - soft, nontender, nondistended, no masses or organomegaly Musculoskeletal - no joint tenderness, deformity or swelling Extremities - peripheral pulses normal, no pedal edema, no clubbing or cyanosis Skin - normal coloration and turgor, no rashes, no suspicious skin lesions noted PIV-left wrist, without redness, swelling, or tenderness. Dressing dry and intact. LABS: Recent Labs Component Name 03/04/20 2327 03/03/20 2345 03/03/20 0014 02/27/20 0411 WBC 13.3* 16.4* 15.8* - 7.3 RBC 3.70* 3.83* 3.76* - 4.15* HGB 10.8* 11.2* 11.0* - 11.9* HCT 30.7* 32.1* 31.8* - 35.4* MCV 83.0 83.8 84.6 - 85.3 MCH 29.2 29.2 29.3 - 28.7 MCHC 35.2 34.9 34.6 - 33.6 PLTCOUNT 252 291 338 - 402* RDWSD 47.4 48.1 49.7 - 49.6 RDW 16.0* 16.4* 16.4* - 16.1* MPV 10.7 11.3 11.2 - 10.4 NRBCABS 0.17* 0.76* 1.72* - 0.00 NRBCAUTOPCT 1.3* 4.6* 10.9* - 0.0 NEUTPCT 89.4* 84.0* 84.7* - - LYMPHSPCT 4.6* 6.7* 3.2* - - MONOPCT 4.8 6.0 8.4 - - EOSPCT 0.0 0.1 0.1 - - BASOPCT 0.2 0.2 0.3 - - IMMGRANSPCT 1.0 3.0* 3.3* - - NEUTABS 11.9* 13.8* 13.4* - 6.79 LYMPHS 0.6* 1.1 0.5* - 0.44* MONO 0.64 0.99* 1.33* - 0.07* EOS 0.00 0.02 0.01 - - BASO 0.02 0.04 0.04 - - TOTCELLCNT - - - - 100 - = values in this interval not displayed. Recent Labs Component Name 03/04/20232603/03/20234403/03/20 0014 BUN 13 14 17 CREATININE 0.8 1.1 1.0 NA 139 136 134* POTASSIUM 4.1 3.7 3.6 CL 106 103 103 CO2 21* 19* 18* CALCIUM 8.4 7.6* 7.7* PROT 5.5* 5.0* 4.9* ALB 2.1* 2.0* 2.2* TBILI 0.3 0.4 0.3 ALKPHOS 90 83 82 ALT 70* 65* 90* AST 39* 24 31 ANIONGAP 16 18 17 BCR 16 13 17 OSMOLALITY 290 283 280 AGRATIO 0.6* 0.7* 0.8* EGFR >60 >60 >60 Recent Labs Component Name 03/04/20232603/03/20234403/03/20 0014 MAGNESIUM 2.3 1.7 1.7 Recent Labs Component Name 03/04/20232603/03/20234403/03/20 0014 PHOS 2.4 3.3 2.4 Pathology: CD4: see epic 02/26 BMBX (03/03/20): Path- Flow-NISHA Cyto- FISH- Infectious Workup COVID (03/04/20):negative COVID (03/03/20): negative PJP PCR: pending Beta D Glucan: pending Blastomyces: pending Histoplasma blood: pending Histoplasma urine: pending Asperigillus: negative Toxoplasma PCR: pending Bartonella IgG: negative Bartonella IgM: negative Cryptococcus: Negative Urine Legionella: Negative BC x2 (03/03): NG at 24 BC x2 (03/02): NGTD BC x 2 (02/25/20): NGTD UA with culture (02/25/20): NGTD RVP (02/25/20): ND Covid swab (02/25/20): negative Covid IgG (02/25/20): Negative RADIOLOGY: PCX (03/05/20): results pending CT C/A/P (02/26/20): 1. Patchy, peripheral predominant groundglass opacities in [...] acute process identified in the abdomen or pelvis ASSESSMENT/PLAN: JALIL LUIS is a 49 year old male, who is Day +137 (Day 0 is 10/20/19) of an autologous peripheral blood stem cell transplant with a 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 SYSTEMS: Marginal Zone Lymphoma in CR2 pre-transplant Schema: 5A Prep: BEAM, Cell count 10.4 x 10^6 CD34+cells/kg in 5 bags; Planned disease evaluation: day [address] A/P -- BMBx completed today (03/03) Planned post transplant therapy: none planned at this time -Transfusion threshold: Hgb > 7; Plt > 10; CMV +, transfusion pre meds: none needed -Engraftment: ANC day +9 (10/29/19); plt engraftment 11/03/19 (day +14) OI prophylaxis: Bacterial:??Hold Pen VK d/t escalation of antibiotics PJP:??Bactrim DS MWF Viral: Valtrex 500mg BID Covid/Persistent Fevers -tested positive early January after girlfriend was tested +, didn't have symptoms for 2 weeks, but now has been consistently febrile for several weeks - Covid negative x2; covid IgG - negative x2 - IgG - 209 - not replaced at this time d/t headaches - CT C/A/P, results above -Inflammatory markers sent today (03/03) - ID consult, appreciate recs -Continue Vancomycin 1750 Q 12 with trough due 03/05/20 at 1800 -Completed 7 day course of both but patient has been intermittently febrile last few days, will continue both. -Changed Cefe to Cem 1 gm Q 8 hrs for continued fevers and worsening hypoxia (03/04/20) Hypoxia -Breathing slightly improved since starting steroids but O2 requirements remain the same. Minimal exertion causing significant dyspnea. Remains on 40L; FIO2 60% -Received additional 90 mg oral pred plus Dex 6 mg IV today -Dex stopped after today's dose and will continue pred 90mg (1mg/kg) PO daily for possible BCNU pneumonitis -Worsening SOB overnight with audible wheezing and drop in sats to 80's (03/04/20). -Lactic acid 03/04/20 1.0 -repeat COVID swab 03/04/20 neg -started dexamethasone 6 mg IV daily (03/04/20) -GGO CT 02/25, repeat CT 03/02 -03/03 BNP 25 and ECHO completed with results pending to r/o cardiac etiology (03/03) -Consult Pulm; appreciate recs -Will plan for bronch on Tuesday 03/06 Headaches - seem to worsen with fevers - Neuro consult d/t concern for meningitis >LP completed 03/01. Results negative for meningitis > Dex 10mg Q6h, d/c 03/01 Anxiety/Depression - Lexapro 10 mg daily Restless Leg Syndrome - Requip 0.25 mg QHS Right IJ venous clot 09/27/19 -Therapeutic lovenox started, plan to hold Friday evening, Friday morning dose for bronch on 03/06 - Eliquis 5 mg BID (Currently held d/t planned bronch Friday) Discharge Planning: Patients preferred contact information: cell Caregiver: sister, girlfriend Preferred D/C [facility]acy: [facility] Intended lodging: home Referring provider: Cesar Tavares Disposition: Remain on 8S for infectious workup Alida Marshall, JOSE DAVID, TALENT ACQUISITION OPERATIONS MANAGER-C Bone Marrow Transplant [facility] Office #[phone] I independently interviewed and examined Jalil Luis with the BMT advanced practice provider. I reviewed my findings and assessment with the advanced practice provider and the patient. I reviewed the below note. Please see note for full detail. Day 137 Defervesced after 3pm No further n/v Still on high flow O2, 40L, 60% Dry cough led to profound dyspnea this am Repeat CoViD swab neg, now total neg x 3 since admissionbnp I/O now + Was neg On continuous IVF due to poor po and insensible losses Vanco/cem since yesterday, prev vanco/cefepime Dex 6mg QD resumed 03/04 per CoViD trial I think BCNU pneumonitis needs to be in diff dx That would warrant higher dose steroid, closer to 1 mg/kg Doubt 1 mg/kg would hurt CoViD and if we don't escalate, we could miss our window to treat BCNU pneumonitis D/c dex Start pred 1 mg/kg AIBW, 90mg starting today Echo/doppler read pending, but BNP wnl On Lovenox - hold for bronch pm dose today and am dose tomorrow RE: fevers, will not reculture unless clinical/VS change Hillary Apple MD MSc wreath and garland maker hand Interim Director, Division of Hematology/Oncology [facility] Associated attestation - Hillary Apple MD - 03/05/2020 8:32 PM CDT Discussed with pulmonary Will await final recs re: bronch tomorrow Aurelio is very discouraged and understandably fearful of being on a ventilator He is frustrated by remaining on isolation and not having his nurse clinician be able to visit We reminded him to remain optimistic for steroid responsiveness and acknowledged his frustration Hillary Apple MD MSc wreath and garland maker hand Interim Director, Division of Hematology/Oncology [facility] * Hillary Apple MD - 03/04/2020 9:16 AM CDT I independently interviewed and examined Jalil Luis with the BMT advanced practice provider. I reviewed my findings and assessment with the advanced practice provider and the patient. I reviewed the below note. Please see note for full detail. Day 136 Admitted for persistent fevers Remains febrile with Tm > 102 Emesis this am Now with increasing O2 req, HF nc 40L Agreeable to repeat CoViD swab in prep for bronch Friday We have not found another source If this is CoViD, Aurelio does not fit into any norms for time to decompensation Given that he is hypogamm and can't mount an antibody response, is this why we might see a delayed infection picture WIll start dex 6mg QD given increasing O2 requirement Follow po intake Remains on vanc/cefe (follow trough tomorrow before pm dose), change to cem Bactrim/VCV proph When antibacterial stopped, needs to go on PCN VK as he is asplenic Labs reviewed: BNP normal Repeat cultures pending Lactate normal Continue full-dose AC for now but given that we were treating UE DVT, can likely back off to proph Hold Lovenox for bronch Friday New dopplers done yesterday, likely for fever work-up Hillary Apple MD MSc wreath and garland maker hand Interim Director, Division of Hematology/Oncology [facility] * Vane Kothari RN - 03/03/2020 11:46 PM CDT 2000: call placed to BMT PROVISIONING ANALYST, pt refusing COVID swab at this time. Will be agreeable to another swabtomorrow. 0: Call placed to BMT PROVISIONING ANALYSTAustyn, regarding pt o2 saturations 88-90% on 5L NC. Will await new orders. 0530: JED Zaman notified of VS * Alida Marshall, JOSE DAVID-SEWING DEMONSTRATOR - 03/03/2020 6:52 PM CDT Autologous Hematopoietic Stem Cell Daily Note: PATIENT IDENTIFIERS: JALIL LUIS is a 49 year old male who is Day +136 (Day 0 is 10/20/19) of an autologous peripheral blood stem cell transplant with a 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 INTERVAL HISTORY: Resting in bed this morning. Appears fatigued and like it's an effort to have a conversation. Speech is clear. States that he vomited his orange juice this morning and could not eat anything. Denies abdominal pain or cramping. Denies diarrhea or loose stool. Reports dry cough and can tell he is wheezing intermittently. Denies headache currently. Denies oral pain or lesions. Denies chest pain or SOB at rest. Remains on FIO2 at 60% ROS: A comprehensive review of systems was negative except for: as noted above MEDICATIONS FOR CURRENT ENCOUNTER: SCHEDULED MEDICATIONS: 0.9% NaCl IV Bolus, Intravenous, Once albuterol HFA (PROVENTIL;VENTOLIN;PROAIR) 108 (90 Base) MCG/ACT inhaler 2 puff, Inhalation, q4h cefepime (MAXIPIME) 2,000 mg in sterile water (PF) 20 mL syringe, Intravenous, q8h enoxaparin (LOVENOX) injection 120 mg, Subcutaneous, q12h escitalopram (LEXAPRO) tablet 10 mg, Oral, QDAY iopamidol (ISOVUE 370) 76 % contrast, Intravenous, Contrast - Once perflutren Lipid Microsphere (DEFINITY) injection SUSP 0.5 mL, Intravenous, intra-Procedure multiple rOPINIRole (REQUIP) tablet 0.5 mg, Oral, AT BEDTIME sulfamethoxazole-trimethoprim (BACTRIM DS; SEPTRA DS) 800-160 MG tablet 1 tablet, Oral, MON, WED AND FRI valACYclovir (VALTREX) tablet 500 mg, Oral, BID vancomycin (VANCOCIN) 1,750 mg in 535 mL IVPB, Intravenous, q12h [COMPLETED] acetaminophen (TYLENOL) tablet 650 mg, Oral, Once [COMPLETED] acetaminophen (TYLENOL) tablet 650 mg, Oral, Once ?? [COMPLETED] ibuprofen (MOTRIN) tablet 600 mg, Oral, Once ?? CONTINUOUS MEDICATIONS: PRN MEDICATIONS: LORazepam (ATIVAN) injection 1 mg, Intravenous, AT BEDTIME PRN magnesium sulfate 2 g in 50 mL bolus, Intravenous, PRN ?? oxyCODONE (immediate release) (ROXICODONE) tablet 5 mg, Oral, q4h PRN VITALS: Vitals: 03/03/20 2200 03/04/20 0016 03/04/20 0125 03/04/20 0526 BP: 94/54 101/59 Pulse: 93 96 Resp: 20 24 Temp: 99.7 ??F (!) 100.7 ??F SpO2: (!) 88% 95% 97% 96% Weight: Height: Wt Readings from Last 3 Encounters: 03/02/20 121.2 kg (267 lb 3.2 oz) 02/26/20 120.2 kg (265 lb) 11/15/19 123.4 kg (272 lb) Date 03/03/20 07 - 03/04/20 0659 03/04/20 07 - 03/05/20 0659 Shift 24 Hour Total 4954-2232 6900-3796 24 Hour Total INTAKE P.O. 600 600 240 240 Shift Total(mL/kg) 600(5) 600(5) 240(2) 240(2) OUTPUT Urine(mL/kg/hr) 1400(1) 950(0.7) 2350(0.8) 500 500 Shift Total(mL/kg) 1400(11.6) 950(7.8) 2350(19.4) 500(4.1) 500(4.1) NET -800 -950 -1750 -260 -260 Weight (kg) 121.2 121.2 121.2 121.2 121.2 121.2 PHYSICAL EXAM: General appearance - alert, well appearing, and in no distress Mental status - alert, oriented to person, place, and time, normal mood, behavior, speech, dress, motor activity, and thought processes Mouth - mucous membranes moist, pharynx normal without lesions Chest - wheezing heard in all lung irizarry upon auscultation. Heart - normal rate, regular rhythm, normal S1, S2, no murmurs, rubs, clicks or gallops Abdomen - soft, nontender, nondistended, no masses or organomegaly; bowel sounds normal Musculoskeletal - no joint tenderness, deformity or swelling, no muscular tenderness noted Extremities - peripheral pulses normal, no pedal edema, no clubbing or cyanosis Skin - normal coloration and turgor, no rashes, no suspicious skin lesions noted PIV-left wrist without redness, swelling, or tenderness. LABS: Recent Labs Component Name 03/03/20 2345 03/03/20 0014 03/01/20 2352 02/27/20 0411 WBC 16.4* 15.8* 20.6* - 7.3 RBC 3.83* 3.76* 3.77* - 4.15* HGB 11.2* 11.0* 11.0* - 11.9* HCT 32.1* 31.8* 31.8* - 35.4* MCV 83.8 84.6 84.4 - 85.3 MCH 29.2 29.3 29.2 - 28.7 MCHC 34.9 34.6 34.6 - 33.6 PLTCOUNT 291 338 416* - 402* RDWSD 48.1 49.7 50.1* - 49.6 RDW 16.4* 16.4* 16.5* - 16.1* MPV 11.3 11.2 11.1 - 10.4 NRBCABS 0.76* 1.72* 0.89* - 0.00 NRBCAUTOPCT 4.6* 10.9* 4.3* - 0.0 NEUTPCT 84.0* 84.7* 88.1* - - LYMPHSPCT 6.7* 3.2* 3.8* - - MONOPCT 6.0 8.4 5.6 - - EOSPCT 0.1 0.1 0.0 - - BASOPCT 0.2 0.3 0.2 - - IMMGRANSPCT 3.0* 3.3* 2.3* - - NEUTABS 13.8* 13.4* 18.1* - 6.79 LYMPHS 1.1 0.5* 0.8 - 0.44* MONO 0.99* 1.33* 1.16* - 0.07* EOS 0.02 0.01 0.00 - - BASO 0.04 0.04 0.04 - - TOTCELLCNT - - - - 100 - = values in this interval not displayed. Recent Labs Component Name 03/03/20 2345 03/03/20 0014 03/01/20 2352 BUN 14 17 21 CREATININE 1.1 1.0 0.8 NA 136 134* 142 POTASSIUM 3.7 3.6 3.7 CL 103 103 107 CO2 19* 18* 18* CALCIUM 7.6* 7.7* 8.2* PROT 5.0* 4.9* 5.3* ALB 2.0* 2.2* 2.4* TBILI 0.4 0.3 0.2 ALKPHOS 83 82 86 ALT 65* 90* 94* AST 24 31 29 ANIONGAP 18 17 21* BCR 13 17 26* OSMOLALITY 283 280 298 AGRATIO 0.7* 0.8* 0.8* EGFR >60 >60 >60 Recent Labs Component Name 03/03/20 2345 03/03/20 0014 03/01/20 2352 MAGNESIUM 1.7 1.7 1.9 Recent Labs Component Name 03/03/20 2345 03/03/20 0014 03/01/20 2352 PHOS 3.3 2.4 3.4 Pathology: CD4: see epic 02/26 BMBX (03/03/20): Path- Flow-NISHA Cyto- FISH- Infectious Workup COVID (03/04/20): Pending PJP PCR: pending Beta D Glucan: pending Blastomyces: pending Histoplasma blood: pending Histoplasma urine: pending Asperigillus: negative Toxoplasma PCR: pending Bartonella IgG: negative Bartonella IgM: negative Cryptococcus: Negative Urine Legionella: Negative BC x2 (03/03): pending BC x2 (03/02): pending BC x 2 (02/25/20): NGTD UA with culture (02/25/20): NGTD RVP (02/25/20): ND Covid swab (02/25/20): negative Covid IgG (02/25/20): Negative RADIOLOGY: CT C/A/P (02/26/20): 1. Patchy, peripheral predominant groundglass opacities in [...] acute process identified in the abdomen or pelvis ASSESSMENT/PLAN: JALIL LUIS is a 49 year old male, who is Day +136 (Day 0 is 10/20/19) of an autologous peripheral blood stem cell transplant with a 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 SYSTEMS: Marginal Zone Lymphoma in CR2 pre-transplant Schema: 5A Prep: BEAM, Cell count 10.4 x 10^6 CD34+cells/kg in 5 bags; Planned disease evaluation: day [address] A/P -- BMBx completed today (03/03) Planned post transplant therapy: none planned at this time -Transfusion threshold: Hgb > 7; Plt > 10; CMV +, transfusion pre meds: none needed -Engraftment: ANC day +9 (10/29/19); plt engraftment 11/03/19 (day +14) OI prophylaxis: Bacterial:??Hold Pen VK d/t starting Cefepime PJP:??Bactrim DS MWF Viral: Valtrex 500mg BID Covid/Persistent Fevers -tested positive early January after girlfriend was tested +, didn't have symptoms for 2 weeks, but now has been consistently febrile for several weeks - Covid negative x2; covid IgG - negative x2 - IgG - 209 - not replaced at this time d/t headaches - CT C/A/P, results above -Inflammatory markers sent today (03/03) - ID consult, appreciate recs -Continue Vancomycin 1750 Q 12 with trough due 03/05/20 at 1800 -Completed 7 day course of both but patient febrile overnight and today, will continue both. -Changed Cefe to Cem 1 gm Q 8 hrs for continued fevers and worsening hypoxia Hypoxia -Worsening SOB overnight with audible wheezing and drop in sats to 80's. -Currently on FIO2 60% -Lactic acid 03/04/20 1.0 -repeat COVID swab 03/04/20 pending -start dexamethasone 6 mg IV daily starting today (03/04/20) -GGO CT 02/25, repeat CT 03/02 -BNP Sent and ECHO ordered to r/o cardiac etiology (03/03) -Consult Pulm; appreciate recs -Will plan for bronch on Tuesday 03/06 Headaches - seem to worsen with fevers - Neuro consult d/t concern for meningitis >LP completed 03/01. Results negative for meningitis > Dex 10mg Q6h, d/c 03/01 Anxiety/Depression - Lexapro 10 mg daily Restless Leg Syndrome - Requip 0.25 mg QHS Right IJ venous clot 09/27/19 -Therapeutic lovenox started, plan to hold Friday evening, Friday morning dose for bronch on 03/06 - Eliquis 5 mg BID (Currently held d/t planned bronch Friday) Discharge Planning: Patients preferred contact information: cell Caregiver: sister, girlfriend Preferred D/C Pharmacy: [facility] Intended lodging: home Referring provider: Cesar Tavares Disposition: Remain on 8S for infectious workup Alida Marshall APRN, [employer] OPERATIONS MANAGER-C Bone Marrow Transplant [facility] Office #[phone] Associated attestation - Hillary Apple MD - 03/04/2020 5:44 PM CDT Will also review possibility of BCNU pneumonitis as explanation of current clinical picture. * Jayson Friedman MD - 03/03/2020 10:13 AM CDT [facility] Progress Note Admitted on: 02/25/2020 9:41 PM Hospital stay: Day 7 Room: [address] [place] [address] Primary Team: Attending: Shalini Segal MD Reason for ID consultation: recent??COVID-19 positive on 01/07/2020 per patient report, fever over the past 2 weeks. 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 ID is called for consult regarding management of recent positive??COVID- 19 and fever. LP on 03/01 with negative finding. SUBJECTIVE & INTERVAL HISTORY: He had fever since last night. Desaturated down to POX 89% and started on 2 L NC oxygen. He said hewas contacting his sister who was positive for COVID one week later after he was positive. His daughter was negative. He continuous to have dry cough and more SOB now. No diarrhea, nausea. Current Abx Cefepime (02/25/20 - ) Iv vancomycin 02/25-?? Valacyclovir?? Prior Abx: Penicillin VK PO ?? Inpatient Medications ??? albuterol HFA 2 puff Inhalation q4h ??? apixaban 5 mg Oral BID ??? cefepime 2 g Intravenous q8h ??? escitalopram 10 mg Oral QDAY ??? iopamidol Intravenous Contrast - Once ??? rOPINIRole 0.5 mg Oral AT BEDTIME ??? sulfamethoxazole-trimethoprim 1 tablet Oral MON, WED AND FRI ??? valACYclovir 500 mg Oral BID ??? vancomycin 1,750 mg Intravenous q12h PRN Medications LORazepam ??? magnesium sulfate ??? oxyCODONE (immediate release) OBJECTIVE: Vital Signs: BP 106/66 Pulse 88 Temp 99.9 ??F (37.7 ??C) (Oral) Resp 20 Ht 5' 7.01 (1.702 m) Wt 267 lb 3.2 oz (121.2 kg) SpO2 95% BMI 41.84 kg/m2 Temp (24hrs), Av.3 ??F (37.9 ??C), Min:97.8 ??F (36.6 ??C), Max:102.3 ??F (39.1 ??C) I/O: Intake/Output Summary (Last 24 hours) at 03/03/2020 1013 Last data filed at 03/03/2020 0819 Gross per 24 hour Intake 3190 ml Output 4595 ml Net -1405 ml Physical Exam: General: Alert, cooperative Head: Normocephalic and atraumatic Eyes: PERRLA, EOMI, normal conjunctiva, no icterus ENT: Moist mucus membranes, oropharyngeal clear Neck: Supple, no LAD, no JVD, trachea midline Lungs:coarse BS Heart: RRR, normal S1 and S2, no murmur Abdomen: Soft, non-distended, non-tender, +BS Neurologic: Alert & oriented x 4, no focal deficits Extremities: No clubbing, cyanosis, or edema Skin: Warm and dry, no rashes appreciated Psychiatry: Appropriate mood/affect Lines: PIV LABS CBC: Recent Labs Component Name 03/03/20 0014 03/01/20 2352 02/29/20 2334 WBC 15.8* 20.6* 23.4* RBC 3.76* 3.77* 3.64* HGB 11.0* 11.0* 10.8* HCT 31.8* 31.8* 30.8* MCV 84.6 84.4 84.6 BMP: Recent Labs Component Name 03/03/20 0014 03/01/20 2352 02/29/20 2334 NA 134* 142 142 CL 103 107 109* CO2 18* 18* 21* BUN CREATININE 1.0 0.8 1.0 ALB 2.2* 2.4* 2.5* PROT 4.9* 5.3* 5.5* estimated creatinine clearance is 111.3 mL/min (based on SCr of 1 mg/dL). LFTs: Recent Labs Component Name 03/03/20 0014 03/01/20 2352 02/29/20 2334 02/29/20 0012 02/27/20 2349 02/27/20 0411 02/26/20 0042 11/15/19 0911 11/11/19 1231 11/04/19 0858 11/01/19 0909 10/30/19 1115 10/29/19 0002 10/28/19 0000 10/27/19 0007 10/26/19 0012 10/25/19 0013 10/24/19 0015 10/23/19 0031 10/22/19 0015 10/20/19 2359 10/20/19 0041 10/19/19 0021 10/17/19 2343 10/17/19 0020 10/16/19 0002 10/15/19 0019 10/13/19 2319 10/13/19 0951 09/30/19 1115 09/09/19 1242 08/26/19 1345 08/19/19 0542 08/18/19 0555 07/26/19 1248 06/28/19 1351 06/09/19 1341 05/24/19 1206 03/22/19 1500 ALKPHOS 82 86 87 89 97 109 110 102 108 128 124 119 102 95 84 69 72 64 64 73 77 80 82 86 83 90 104 126 137 155* 108 108 68 65 74 63 70 65 125 ALT 90* 94* 95* 40 29 29 31 22 29 42 47 48 43 54 53 46 56* 68* 77* 103* 122* 117* 137* 76* 70* 40 33 49 46 58* 36 48 35 40 68* 31 30 31 22 AST 31 29 59* 26 22 22 29 15 18 26 25 27 14 18 17 12 12 14 19 23 50* 28 56* 25 29 19 15 21 20 23 2030 29 31 31 19 22 19 20 Results for JALIL LUIS ( ) as of 03/01/2020 12:20 Ref. Range 03/01/2020 10:39 03/01/2020 10:48 Glucose,CSF-STAT Latest Ref Range: 40 - 70 mg/dL 81 (H) Protein CSF Latest Ref Range: 15 - 45 mg/dL 20 Xanthochromia Fluid Latest Ref Range: Negative Negative Volume Fluid Latest Units: mL 3.0 Color Fluid Latest Ref Range: Colorless, Straw Colorless Clarity Fluid Latest Ref Range: Clear Clear Differential Unknown Manual Differential to follow. RBC Calculation Latest Units: /uL 1 WBC Calculation Fluid Latest Ref Range: 0 - 5 /uL 1 Lymphocytes % Fluid Latest Units: % 46 Monocytes % Fluid Latest Units: % 50 Macrophages % Fluid Latest Units: % 4 MICROBIOLOGY: RESPIRATORY PATHOGEN PANEL BY PCR 02/25/20: Not detected ?? SARS-COV-2 (COVID-19) 02/25/20: in process ?? 02/25/20: COVID-19 Ab IgG: negative ?? 02/26/20: CMV PCR Quant Blood: negative EBV PCR Quant Blood: negative ADENOVIRUS PCR Quant Blood: in process Aspergillus galactomannon Ag negative Toxoplasma IgM/IgG negative?? Microbiology: Blood culture 02/25/20: x 2 in process ??02/26/20: x 2 in process Blood AFB culture pending Blood fungal culture pending Urine culture 02/25/20: in process UA: WBC 0-5 Cryptococcal Ag negative 02/25 HISTOPATHOLOGY: None at this admission IMAGING & PROCEDURE: Pertinen images independently reviewed; report in chart. CT chest/abd/pelvis 02/25 1. Patchy, peripheral predominant groundglass opacities in [...] process identified in the abdomen or pelvis. ?? MRI brain 02/25 No evidence of acute intracranial findings. ?? CT chest 03/02 1. Altered distribution of prominent geographic groundglass opacities within the upper and lower lung zones bilaterally. This suggests ongoing inflammatory or infectious process, rather than discrete areas of progressive fibrosis. Areas of groundglass can progress to fibrosis, therefore continued follow-up is advised. ?? 2. 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 ?? ASSESSMENT & RECOMMENDATIONS: 1. Fever in an autologous peripheral blood stem cell transplant patient and splenectomy: DDx is broad including bacterial, fungal, viral and recurrent lymphoma. His BC negative. Ground glass opacity in bilateral lungs pm CT C/A/P could 2nd to previous COVID infection. Very less likely 2nd to fungalinfection. He is autologous transplant patient. So very less likely viral infection with negative respiratory pathogen panel. Negative COVID *2 already. And his last positive COVID is on 01/06. No contact hx after 01/13. Very less likely 2nd to COVID induced. His worsen of SOB happened suddenly 2 daysafter he is off steroid. He is already on broad spectrum antibiotics for 7 days. Currently likely causes of fever and worsen of ground glass opacity in lungs are likely ?lymphoma, ?organizaing pneumonitis. 2. Headache, associated with photophobia and neck pain: Severe, duration ~2 weeks. MRI brain negative. related to his COVID before. Less likely herpes encephalitis with negative MRI brain. Cryptococcus Ag negative. LP with normal WBC, protein, glucose. Meningitis is ruled out. 3. 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 4. 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 Recent??COVID-19 positive on 01/07/2020 per patient report: Not received any treatment or clinical trial for this). COVID-19 Ab IgG not detected may be related to low immune response secondary to his immunosuppressive condition. 6. Renal function: Estimated Creatinine Clearance: 138.1 mL/min (based on SCr of 0.8 mg/dL). 7. 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 Continue cefepime and vancomycin now ?? Bone marrow biopsy to evaluate lymphoma now. ?? LP cell count suggested no significant sign of meningitis. Send CSF culture/fungal culture/AFB culture. ?? Follow up with fungal blood culture and AFB blood culture ?? No need for Isolation ?? Pulmonary on consult. ?? Check ultrasound venous doppler to r/o DVT of four extremities ?? Check troponin and BNP to r/o other cause of hypoxia. ?? No steroid now. ?? If patient got worse with fever and SOB, ok to switch to vancomycin with meropenum. ?? Repeat COVID over the weekend and possible plan for bronchoscopy next Friday if COVID is negative. ?? - Follow CBC with manual diff, CMP, and complete urinalysis weekly (at minimum) while on IV antibiotics Primary team: hematology Case was discussed with Dr Damian. >35 minutes spent on the care of this patient. > 50% was spent in counseling and coordinationof care that included the patient and the primay team. Jayson Friedman M.D. Infectious Diseases fellow (Team 1) Pager [phone], cell phone [phone]. You can call or text me for communication. Associated attestation - Joce Damian DO - 03/03/2020 5:01 PM CDT I applied COVID19 protocol as he was COVID r/o this morning. The case was discussed the patient with the team. I reviewed the fellow's note and agree with the findings and assessment and plan except as noted below. Please see the fellow's note. New Onset Fever and Hypoxia: Febrile O/N w/ increasing O2 requirements O/N. Currently on vanco/cefepime. Of note was on dexa daily as of 24h ago. DDx -> CT Chest w/ worsening GGO as compared to admission: S/P 7 days of vanco and cefepime. Less likely aspiration as no AMS or vomiting. Of notes worsening resp status and fever after steroids have been stopped, ?inflammatory process. Less likely residual COVID w/ PCR negative x 2 and mildly elevated inflammatory dhillon. Given the acuity of the symptoms less likely PJP, fungitell pending. Given his underlying autologous tx, less likely adeno, HHV6, CMV, or fungal. ?cardiac component mariela in the setting of recent COVID, will check BNP. Most recent echo 08/2019 w/ EF in mid 50s. ?relapsed lymphoma mariela in the setting of dexa x 4 days and the extended period of fevers patient was having prior to admission BCx NGTD Hx of COVID: Dx in beginning of January 2020, therefore constellation of current symptoms less likely related given prolonged timeline. Serology negative however he just recently underwent an autologoustherefore this is expected. CT Chest on admission w/ B/L GGO which may be consistent w/ COVID. Fever on Admission: Resolved. On dexa + vanco/cefepime. DDx -> Resp status stable on RA: CT Chest on admision w/ B/L GGO likely consistent w/ recent COVID infection however S/P 7 days of vanco/cefepime which would treat bacterial superimposed infections. RPP negative. GM negative. Toxo, histo, blasto pending. COVID x 2 negative. COOPER w/ concerns of meningitis: S/P LP unremarkable for meningitis. CSF crypto and HSV negative. MRI Brain unremarkable. BCx NGTD Leukocytosis: Improving likely 25/09 dexa Plan for bronch on Friday w/ a repeat COVID swab likely for clearance If continued fever would con't vanco and change cefepime to meropenem * Kalpesh Robison MD - 03/03/2020 9:06 AM CDT Pulmonary Medicine Progress Note Name: Jalil Luis, [id number] Age: [age] year old Room: 808/808- Date Admitted: 02/25/2020 ? Subjective: Hospital course: Jalil Luis is a 49 year old male with a PMHx of Autologous stem cell transplant for marginal zone lymphoma who presents with fevers and shortness of breath + BL peripheral GGO in the context ofa recent covid + and an known exposure (). Pulmonary were re-consulted because of worsening respiratory failure and a new fever. Interval history: At this time, he c/o fevers, shortness of breath, dry cough and chills. -- He says that he has been waxing a waning to a certain degree. -- Yesterday, he spiked a new fever, and since then he has been feeling worse. His c/o include decreasing exercise capacity, fatigue/mailase, and shortness of breath. -- At the time of his covid +ve test, he was not short of breath, but now, he does experience some dyspnea on exertion. Objective: Current vital signs T: (!) 101.3 ??F (38.5 ??C) [Temp Min: 98.1 ??F (36.7 ??C) Max: 101.3 ??F (38.5 ??C)] BP: 128/87[BP Min: 123/72 Max: 166/94] MAP: 101[MAP (mmHg) Min: 87 Max: 101] HR: 74[Pulse Min: 50 Max: 74] RR: 20[Resp Min: 18 Max: 20] Sat: (!) 89 %[SpO2 Min: 89 % Max: 98 %] Physical Examination: Physical Exam Constitutional: He is oriented to person, place, and time and well-developed, well-nourished, and in no distress. No distress. HENT: Head: Normocephalic and atraumatic. Eyes: Pupils are equal, round, and reactive to light. Conjunctivae are normal. Neck: Normal range of motion. Neck supple. No JVD present. Cardiovascular: Normal rate and regular rhythm. No murmur heard. Pulmonary/Chest: Effort normal and breath sounds normal. No accessory muscle usage. No tachypnea. No respiratory distress. He has no wheezes. He has no rales. Abdominal: Soft. Normal appearance. He exhibits no distension. There is no abdominal tenderness. Musculoskeletal: Normal range of motion. General: No edema. Neurological: He is alert and oriented to person, place, and time. No cranial nerve deficit. Skin: Skin is warm. No rash noted. He is not diaphoretic. Psychiatric: Affect and judgment normal. Vitals reviewed. Data Reviewed, pertinent labs/imaging below: Recent Labs Component Name 03/01/20 2352 02/29/20 2334 02/29/20 0012 WBC 20.6* 23.4* 26.1* RBC 3.77* 3.64* 3.67* HGB 11.0* 10.8* 10.7* HCT 31.8* 30.8* 31.1* MCV 84.4 84.6 84.7 MCHC 34.6 35.1 34.4 PLTCOUNT 416* 448* 440* NEUTPCT 88.1* 88.6* 92.0* NEUTABS 18.1* 20.7* 24.0* Recent Labs Component Name 03/01/20 2352 02/29/20 2334 02/29/20 0012 POTASSIUM 3.7 4.3 4.2 CO2 18* 21* 19* BUN 21 21 18 CREATININE 0.8 1.0 0.9 GLUCOSE 122* 125* 122* CALCIUM 8.2* 8.4 8.6 ALT 94* 95* 40 ALKPHOS 86 87 89 AST 29 59* 26 EGFR >60 >60 >60 Microbiology Results (Displays last 21 days for this encounter ONLY) Procedure Component Value - Date/Time CULTURE BLOOD [[id number]] Lab Status: No result Specimen: Blood Peripheral CULTURE BLOOD [[id number]] Lab Status: No result Specimen: Blood Peripheral HERPES SIMPLEX 1+2 PCR CSF [[id number]] (Normal) Collected: 03/01/20 1241 Lab Status: Final result Specimen: Microbiology from CSF Updated: 03/01/20 1920 Herpes Simplex Virus 1 PCR CSF Not detected Herpes Simplex Virus 2 PCR CSF Not detected CRYPTOCOCCUS ANTIGEN CSF [[id number]] (Normal) Collected: 03/01/20 1116 Lab Status: Final result Specimen: Cerebral spinal fluid from CSF Updated: 03/01/20 1646 Cryptococcus Antigen CSF Negative SARS-COV-2 (COVID-19) IN HOUSE [[id number]] (Normal) Collected: 02/27/20 1641 Lab Status: Final result Specimen: Microbiology from Nasopharyngeal Updated: 02/28/20 1552 COVID-19 Not detected Narrative: This Real Time RT-PCR assay was developed and its performance characteristics determined by [facility]. This test has been authorized by the Food and Drug administration (FDA)under an Emergency Use Authorization (EUA). This test has been validated [...] 21 U.S.C 360bbb-3 (b)(1), unless the authorization isterminated or revoked sooner. TOXOPLASMA GONDII PCR [[id number]] Collected: 02/27/20 0411 Lab Status: In process Specimen: Microbiology from Blood Updated: 02/27/20 0417 CULTURE BLOOD [[id number]] Collected: 02/26/20 1711 Lab Status: Preliminary result Specimen: Blood Peripheral Updated: 02/29/20 0112 Culture No growth CULTURE BLOOD FUNGUS [[id number]] Collected: 02/26/20 170 Lab Status: Preliminary result Specimen: Blood Peripheral Updated: 02/28/20 0950 Culture Culture in progress CULTURE BLOOD AFB [[id number]] Collected: 02/26/201704 Lab Status: Preliminary result Specimen: Blood Peripheral Updated: 02/27/20 1321 Culture Culture in progress CULTURE BLOOD [[id number]] Collected: 02/26/201704 Lab Status: Preliminary result Specimen: Blood Peripheral Updated: 02/29/20 0112 Culture No growth CYTOMEGALOVIRUS (CMV) QUANTITATIVE PLASMA [[id number]] (Normal) Collected: 02/26/20 1201 Lab Status: Final result Specimen: Blood Updated: 02/28/20 1730 CMV Quant by PCR, Interp Not Detected Narrative: The CMV DNA analysis utilized real-time PCR, and is reported as Not Detected, Detected (<50 IU/mL) [or Detected (<1.70 log IU/mL], 50 - 156,000,000 IU/mL [or 1.70 to 8.19 log IU/mL], or >156,000,000 IU/mL [>8.19 log IU/mL]. The analytic sensitivity (LOD) of the assay is 31.20 IU/mL [1.49 log IU/mL] (100% of samples with this CMV/DNA level were detected). Linear range of the assay is 50 - 156,000,000 IU/ml [or 1.70 to 8.19 log [...] be different between patient populations and laboratories. Therefore, it is important to monitor patients and to follow increases and/or decreases in the level of CMV in multiple blood specimens. The analysis was performed using an [place] FDA approved test methodology (Bartholomew RealTime CMV). ISA-JUAN VIRUS QUANT BLOOD STL [[id number]] Collected: 02/26/20 1201 Lab Status: Final result Specimen: Blood Updated: 02/28/20 1427 EBV Quant by PCR, Interp Not Detected Specimen Type Plasma Narrative: DNA isolated from the plasma was analyzed in a qPCR assay to detect and quantify Isa-Juan DNA. An internal control is included to evaluate for PCR inhibition. The quantitative range of this assay is 500 IU/mL to 5,000,000 IU/mL. Values below 500 IU/mL will be reported as Detected (<500 IU/mL). This test was developed and its performance characteristics determined by [facility]. It has not been cleared or approved by the U.S. Food and Drug Administration. The FDA hasdetermined that such clearance or approval is not necessary. The test is used for clinical purposes. It should not be regarded as investigational or for research. This laboratory is certified under the Clinical Laboratory Improvement Amendments of 1988(CLIA-88) as qualified to perform high complexity clinical laboratory testing. CULTURE URINE [[id number]] (Normal) Collected: 02/26/20 0008 Lab Status: Final result Specimen: Urine Clean Catch Updated: 02/27/20 0744 Culture Urine No growth (<100 CFU/mL) CULTURE BLOOD [[id number]] Collected: 02/25/202254 Lab Status: Final result Specimen: Blood Peripheral Updated: 03/02/20 015 Culture No growth day 5 CULTURE BLOOD [[id number]] Collected: 02/25/202251 Lab Status: Final result Specimen: Blood Peripheral Updated: 03/02/20 015 Culture No growth day 5 RESPIRATORY PATHOGEN PANEL BY PCR [[id number]] (Normal) Collected: 02/25/202236 Lab Status: Final result Specimen: Microbiology from Nasopharyngeal Updated: 02/26/20 0521 Adenovirus PCR Not detected Coronavirus PCR Not detected Human Metapneumovirus PCR Not detected Human Rhinovirus/Enterovirus PCR Not detected Influenza A PCR Not detected Influenza B PCR Not detected Parainfluenza Virus 1 PCR Not detected Parainfluenza Virus 2 PCR Not detected Parainfluenza Virus 3 PCR Not detected Parainfluenza Virus 4 PCR Not detected Respiratory Syncytial Virus PCR Not detected Bordetella pertussis PCR Not detected Chlamydia pneumoniae PCR Not detected Mycoplasma pneumoniae PCR Not detected Narrative: This test is able to detect the following human coronaviruses: HKU1, NL63, 229E, and OC43. It will NOT detect 2019 Novel Coronavirus (2019-nCoV). If 2019-nCoV is suspected contact Infection Prevention for isolation and testing guidance. SARS-COV-2 (COVID-19) IN HOUSE [[id number]] (Normal) Collected: 02/25/20 2237 Lab Status: Final result Specimen: Microbiology from Nasopharyngeal Updated: 02/26/20 1619 COVID-19 Not detected Narrative: This Real Time RT-PCR assay was developed and its performance characteristics determined by [facility]. This test has been authorized by the Food and Drug administration (FDA)under an Emergency Use Authorization (EUA). This test has been validated [...] 21 U.S.C 360bbb-3 (b)(1), unless the authorization isterminated or revoked sooner. Imaging: -- Extensively reviewed both CT chests. Assessment and Plan: Assessment: 1. Acute hypoxic respiratory failure -- Likely 2/2 his SARS CoV 2. Other RVP negative on admission. -- Though, because of his immunocompromised status, an underlying secondary infection can not be entirely excluded. Differentials are broad: A secondary bacterial vs fungal infection are possible. Imaging could be consistent with PJP but other fungal pneumonias seem less likely. -- Other inflammatory disorders such as OP (primary or secondary) and eosinophilic pneumonia are also in the differential. 2. SARS CoV 2 +ve -- Initial test in January was +ve. Last 2, done this admission, were negative 3. Obstructive ventilatory limitation w/ hyperinflation with bronchodilator response -- Differentials include bronchiolitis obliterans vs ?asthma. Doubt COPD. 4. Marginal zone lymphoma 5. HF 6. Anemia 7. Anion gap +ve metabolic acidosis ?? Plan: - Would not recommend bronchoscopy at this time because of the high risk for transmission during this aerosolizing procedure. However, in the case that a bronch is deemed to be essential --> will discuss this with the bronch suite, infection control and the team who will be performing the procedure. - Continue supportive care for the management of SARS-CoV-2 - SPO2 goal > 92 - No role for remdesevir or convalescent plasma this late in the time course of his illness - The recommendation on dexamethasone is: 6 mg qday for 10 days. IF cleared by transplant ID would recommend continuing this especially since OP is in the differential - Transplant ID are following his care please follow their recommendations - Follow fungal serology including PJP PCR and BDG are still pending. Consider empiric treatment for PJP. - PT/OT, early ambulation, incentive spirometry - smoking cessation counseling Thank you for the consult. We will continue to follow with you. Please call with any further questions. Gracie Robison M.D. Pulmonary and Critical Care Fellow, PGY-6 [facility] Division of Pulmonary, Critical Care and Sleep Medicine Pager: [phone] 03/02/2020 Associated attestation - Hipolito Marlow MD - 03/03/2020 4:23 PM CDT I discussed the patient with the housestaff on the Pulmonary team, and I agree with the findings, assessment and plan as documented by the housestaff. I have personally discussed this patient with Infectious Disease. Patient found to have fever to 102 over night, infectious workup thus far negative except for a positive SARS CoV-2 test in January 2020. Repeat CT chest shows persistent ground glass opacities with some areas improving/resolving and others getting worse. Current considerations include atypical infection, SARS CoV-2, and inflammatory lung disease such as organizing pneumonia. Recommendations: - Repeat SARS CoV-2 PCR on Friday - Plan for bronchoscopy with anesthesia to minimize coughing on Friday at 3 PM, NPO after midnight the night before. Plan to do BAL, brushings, biopsy. Will need to hold therapeutic anticoagulation the morning of procedure. - Would not give steroids at this time - it may alter our biopsy results, is too late in the clinical course for COVID-19. Would also recommend against empirically treating for PJP for now. - Agree with continuing antibiotics at this time - F/u serologic testing - Please call with any questions Date of Service: 03/03/2020 Pulmonary/Critical Care attending: Hipolito Marlow MD * Shalini Segal MD - 03/03/2020 7:06 AM CDT Autologous Hematopoietic Stem Cell Daily Note: PATIENT IDENTIFIERS: JALIL LUIS is a 49 year old male who is Day +135 (Day 0 is 10/20/19) of an autologous peripheral blood stem cell transplant with a 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 INTERVAL HISTORY: Doing ok this morning Denies feeling SOB at rest, BARNES still present Reports moving around in the room without difficulty Dry cough unchanged Febrile overnight, headache worse with fever Denies N/V/D and abdominal pain Denies sore throat, mouth pain Discussed plan for BMBX today ROS: A comprehensive review of systems was negative except for: as noted above MEDICATIONS FOR CURRENT ENCOUNTER: SCHEDULED MEDICATIONS: albuterol HFA (PROVENTIL;VENTOLIN;PROAIR) 108 (90 Base) MCG/ACT inhaler 2 puff, Inhalation, q4h apixaban (ELIQUIS) tablet 5 mg, Oral, BID cefepime (MAXIPIME) 2,000 mg in sterile water (PF) 20 mL syringe, Intravenous, q8h escitalopram (LEXAPRO) tablet 10 mg, Oral, QDAY iopamidol (ISOVUE 370) 76 % contrast, Intravenous, Contrast - Once rOPINIRole (REQUIP) tablet 0.5 mg, Oral, AT BEDTIME sulfamethoxazole-trimethoprim (BACTRIM DS; SEPTRA DS) 800-160 MG tablet 1 tablet, Oral, MON, WED AND FRI valACYclovir (VALTREX) tablet 500 mg, Oral, BID vancomycin (VANCOCIN) 1,750 mg in 535 mL IVPB, Intravenous, q12h [COMPLETED] acetaminophen (TYLENOL) tablet 650 mg, Oral, Once [COMPLETED] yaorgxunhp-ffqcjwslaxpdj-dhlawdnd (FIORICET) 50-325-40 MG tablet 1 tablet, Oral, Once [COMPLETED] ibuprofen (MOTRIN) tablet 600 mg, Oral, Once ?? [COMPLETED] LORazepam (ATIVAN) injection 0.5 mg, Intravenous, Once ?? CONTINUOUS MEDICATIONS: PRN MEDICATIONS: LORazepam (ATIVAN) injection 1 mg, Intravenous, AT BEDTIME PRN magnesium sulfate 2 g in 50 mL bolus, Intravenous, PRN ?? oxyCODONE (immediate release) (ROXICODONE) tablet 5 mg, Oral, q4h PRN VITALS: Vitals: 03/02/20 2126 03/02/20 2333 03/03/20 0146 03/03/20 0413 BP: 116/72 121/65 122/80 117/73 Pulse: 84 82 69 92 Resp: 24 22 22 Temp: (!) 101.6 ??F (!) 100.9 ??F (!) 102.3 ??F 97.8 ??F SpO2: 92% 93% 92% 94% Weight: Height: Wt Readings from Last 3 Encounters: 03/02/20 121.2 kg (267 lb 3.2 oz) 02/26/20 120.2 kg (265 lb) 11/15/19 123.4 kg (272 lb) Date 03/02/20699 - 03/03/20 0603/03/20699 - 03/04/20 0659 Shift 2892-7571 4195-1593 24 Hour Total 5563-2576 0451-7047 24 Hour Total INTAKE P.O. 2040 550 2590 Shift Total(mL/kg) 2040(16.8) 550(4.5) 2590(21.4) OUTPUT Urine(mL/kg/hr) 2195(1.5) 1700(1.2) 3895(1.3) Shift Total(mL/kg) 2195(18.1) 1700(14) 3895(32.1) NET -155 -4300 -1305 Weight (kg) 121.2 121.2 121.2 121.2 121.2 121.2 PHYSICAL EXAM: General appearance - alert, well appearing, and in no distress Mental status - alert, oriented to person, place, and time, normal mood, behavior, speech, dress, motor activity, and thought processes Mouth - mucous membranes moist, pharynx normal without lesions Chest - clear to auscultation, no wheezes, rales or rhonchi, symmetric air entry Heart - normal rate, regular rhythm, normal S1, S2, no murmurs, rubs, clicks or gallops Abdomen - soft, nontender, nondistended, no masses or organomegaly Musculoskeletal - no joint tenderness, deformity or swelling Extremities - peripheral pulses normal, no pedal edema, no clubbing or cyanosis Skin - normal coloration and turgor, no rashes, no suspicious skin lesions noted LABS: Recent Labs Component Name 03/03/20 0014 03/01/20 2352 02/29/20 2334 02/27/20 0411 WBC 15.8* 20.6* 23.4* - 7.3 RBC 3.76* 3.77* 3.64* - 4.15* HGB 11.0* 11.0* 10.8* - 11.9* HCT 31.8* 31.8* 30.8* - 35.4* MCV 84.6 84.4 84.6 - 85.3 MCH 29.3 29.2 29.7 - 28.7 MCHC 34.6 34.6 35.1 - 33.6 PLTCOUNT 338 416* 448* - 402* RDWSD 49.7 50.1* 50.8* - 49.6 RDW 16.4* 16.5* 16.6* - 16.1* MPV 11.2 11.1 10.8 - 10.4 NRBCABS 1.72* 0.89* 0.18* - 0.00 NRBCAUTOPCT 10.9* 4.3* 0.8* - 0.0 NEUTPCT 84.7* 88.1* 88.6* - - LYMPHSPCT 3.2* 3.8* 3.9* - - MONOPCT 8.4 5.6 5.4 - - EOSPCT 0.1 0.0 0.0 - - BASOPCT 0.3 0.2 0.2 - - IMMGRANSPCT 3.3* 2.3* 1.9* - - NEUTABS 13.4* 18.1* 20.7* - 6.79 LYMPHS 0.5* 0.8 0.9 - 0.44* MONO 1.33* 1.16* 1.27* - 0.07* EOS 0.01 0.00 0.00 - - BASO 0.04 0.04 0.04 - - TOTCELLCNT - - - - 100 - = values in this interval not displayed. Recent Labs Component Name 03/03/201303/01/20235102/29/20 2334 BUN 17 21 21 CREATININE 1.0 0.8 1.0 NA 134* 142 142 POTASSIUM 3.6 3.7 4.3 CL 103 107 109* CO2 18* 18* 21* CALCIUM 7.7* 8.2* 8.4 PROT 4.9* 5.3* 5.5* ALB 2.2* 2.4* 2.5* TBILI 0.3 0.2 0.2 ALKPHOS 82 86 87 ALT 90* 94* 95* AST 31 29 59* ANIONGAP 17 21* 16 BCR 17 26* 21 OSMOLALITY 280 298 298 AGRATIO 0.8* 0.8* 0.8* EGFR >60 >60 >60 Recent Labs Component Name 03/03/201303/01/20235102/29/20 2334 MAGNESIUM 1.7 1.9 1.9 Recent Labs Component Name 03/03/201303/01/20235102/29/20 2334 PHOS 2.4 3.4 3.2 Pathology: CD4: see epic 02/26 Infectious Workup PJP PCR: pending Beta D Glucan: pending Blastomyces: pending Histoplasma blood: pending Histoplasma urine: pending Asperigillus: negative Toxoplasma PCR: pending Bartonella IgG: negative Bartonella IgM: negative Cryptococcus: Negative BC x2 (03/03): pending BC x2 (03/02): pending BC x 2 (02/25/20): NGTD UA with culture (02/25/20): NGTD RVP (02/25/20): ND Covid swab (02/25/20): negative Covid IgG (02/25/20): Negative RADIOLOGY: CT C/A/P (02/26/20): 1. Patchy, peripheral predominant groundglass opacities in [...] acute process identified in the abdomen or pelvis ASSESSMENT/PLAN: JALIL LUIS is a 49 year old male, who is Day +135 (Day 0 is 10/20/19) of an autologous peripheral blood stem cell transplant with a 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 SYSTEMS: Marginal Zone Lymphoma in CR2 pre-transplant Schema: 5A Prep: BEAM, Cell count 10.4 x 10^6 CD34+cells/kg in 5 bags; Planned disease evaluation: day [address] A/P -- BMBx completed today (03/03) Planned post transplant therapy: none planned at this time -Transfusion threshold: Hgb > 7; Plt > 10; CMV +, transfusion pre meds: none needed -Engraftment: ANC day +9 (10/29/19); plt engraftment 11/03/19 (day +14) OI prophylaxis: Bacterial:??Hold Pen VK d/t starting Cefepime PJP:??Bactrim DS MWF Viral: Valtrex 500mg BID Covid/Persistent Fevers -tested positive early January after girlfriend was tested +, didn't have symptoms for 2 weeks, but now has been consistently febrile for several weeks - Covid negative x2; covid IgG - negative x2 - IgG - 209 - not replaced at this time d/t headaches - CT C/A/P, results above -Inflammatory markers sent today (03/03) - ID consult with discussion with MICU, appreciate recs -Continue cefepime 2g Q8 and Vancomycin -Completed 7 day course of both but patient febrile overnight and today, will continue both. -Consider escalating to cem if patient status declines - Hod steroid until further diagnosis -No expected benefit from convalescent plasma since COVID almost 8 weeks old - No indication for Remdasevir, -Not candidate for clinical trial -As discussed with ID unlikely to be fungal, PJP, other diagnosis like organizing pneumonia or NHL need to further ruled out Hypoxia respiratory failure -Worsening SOB, requiring 2L NC -GGO CT 02/25, repeat CT 03/02 -BNP Sent and ECHO ordered to r/o cardiac etiology (03/03) -Consult Pulm; appreciate recs -Will plan for bronch on Tuesday 03/06 pending discussion with anestesia Headaches - seem to worsen with fevers - Neuro consult d/t concern for meningitis >LP completed 03/01. Results negative for meningitis > Dex 10mg Q6h, d/c 03/01 Anxiety/Depression - Lexapro 10 mg daily Restless Leg Syndrome - Requip 0.25 mg QHS Right IJ venous clot 09/27/19 -Therapeutic lovenox started, plan to hold Friday evening, Friday morning dose for bronch on 03/06 - Eliquis 5 mg BID (Currently held d/t planned bronch Friday) Discharge Planning: Patients preferred contact information: cell Caregiver: sister, girlfriend Preferred D/C Pharmacy: [facility] Intended lodging: home Referring provider: Cesar Tavares Disposition: Remain on 8S for infectious workup Eli Sood APRN, TALENT ACQUISITION OPERATIONS MANAGER-C Bone Marrow Transplant [facility] I personally evaluated and examined Mr. Jalil Luis. I confirmed the alfonso elements of of history and physical examination. I also discussed the assessment and plan in detail with the team on rounds and with the patient. I made some modifications to the above note. I fully concur with the above assessment and plan. Ezio Segal MD External Grinder Tender Department of Internal Medicine Division of Hematology Oncology * Onelia Hernández RN - 03/03/2020 2:58 AM CDT Problem: Pain/Discomfort Goal: Patient exhibits reduced pain/discomfort as evidenced by pain scores Outcome: Ongoing Goal: Patient uses pharmacological and non-pharmacological pain management strategies. Outcome: Ongoing Goal: Patient verbalizes acceptable level of pain relief and ability to engage in desired activity. Outcome: Ongoing Problem: Fall Risk Goal: Fall risk and fall related injury risk are minimized Outcome: Ongoing Problem: Isolation Goal: Prevent Transmission of Infection Outcome: Ongoing Problem: Isolation Goal: Prevent Transmission of Infection Outcome: Ongoing Problem: Anemia Goal: Patient able to verbalize preventions and signs & symptoms Outcome: Ongoing * Lavinia Huang, TRANSCRIBING OPERATOR HEAD-SEWING DEMONSTRATOR - 03/02/2020 11:36 PM CDT PROVISIONING ANALYST bedside to assess pt @2140, due to the fact that the pt's temp has been increasing since 3 pm today and pt on 2L NC with O2 still running at 92%. Prior note from ID & Neurology stated hypoxic/respritory failure associated with COVID. Since pt was decompensating, I called Pulm to discuss if there was some intervention that we should initiate such as convalescent plasma or remdesivir and if so how to proceed. Marilu from Pulmonology stated that since pt is stable that we should continue the2L NC and if there were any changes overnight to notify her. Marilu also stated that she would let the day team know I consulted pulm so they could discuss pt tomorrow. I called also called ID but haven't received a call back yet. Pt stated his SOB was the same as earlier today and the wheezing has stopped since taking the Albuterol inhaler. Physical Examination: Pt alert resting on left side in bed, well appearing, and in no distress, overweight and cooperative with staff Mental status - alert, oriented to person, place, and time, normal mood, behavior, speech, dress, motor activity, and thought processes Chest - clear to auscultation, no wheezes, rales or rhonchi, symmetric air entry, no tachypnea, retractions or cyanosis, no wheezing or rales noted Heart - normal rate, regular rhythm, normal S1, S2, no murmurs, rubs, clicks or gallops Filed Vitals: 03/02/20 1206 03/02/20 1559 03/02/20 2126 03/02/20 2333 BP: 123/72 128/87 116/72 121/65 Pulse: 53 74 84 82 Resp: 18 20 24 22 Temp: 98.1 ??F (!) 101.3 ??F (!) 101.6 ??F (!) 100.9 ??F TempSrc: Oral Oral Oral Oral SpO2: 97% (!) 89% 92% 93% Weight: Height: Recent Labs Component Name 03/01/20 2352 02/29/20 2334 02/29/20 0012 02/27/20 0411 WBC 20.6* 23.4* 26.1* - 7.3 RBC 3.77* 3.64* 3.67* - 4.15* HGB 11.0* 10.8* 10.7* - 11.9* HCT 31.8* 30.8* 31.1* - 35.4* MCV 84.4 84.6 84.7 - 85.3 MCH 29.2 29.7 29.2 - 28.7 MCHC 34.6 35.1 34.4 - 33.6 PLTCOUNT 416* 448* 440* - 402* RDWSD 50.1* 50.8* 51.1* - 49.6 RDW 16.5* 16.6* 16.3* - 16.1* MPV 11.1 10.8 10.5 - 10.4 NRBCABS 0.89* 0.18* 0.04* - 0.00 NRBCAUTOPCT 4.3* 0.8* 0.2* - 0.0 NEUTPCT 88.1* 88.6* 92.0* - - LYMPHSPCT 3.8* 3.9* 3.9* - - MONOPCT 5.6 5.4 2.5* - - EOSPCT 0.0 0.0 0.0 - - BASOPCT 0.2 0.2 0.1 - - IMMGRANSPCT 2.3* 1.9* 1.5* - - NEUTABS 18.1* 20.7* 24.0* - 6.79 LYMPHS 0.8 0.9 1.0 - 0.44* MONO 1.16* 1.27* 0.64 - 0.07* EOS 0.00 0.00 0.00 - - BASO 0.04 0.04 0.03 - - TOTCELLCNT - - - - 100 - = values in this interval not displayed. Recent Labs Component Name 03/01/20 2352 02/29/20 2334 02/29/20 0012 BUN 21 21 18 CREATININE 0.8 1.0 0.9 NA 142 142 143 POTASSIUM 3.7 4.3 4.2 CL 107 109* 111* CO2 18* 21* 19* CALCIUM 8.2* 8.4 8.6 PROT 5.3* 5.5* 5.5* ALB 2.4* 2.5* 2.6* TBILI 0.2 0.2 0.2 ALKPHOS 86 87 89 ALT 94* 95* 40 AST 29 59* 26 ANIONGAP 21* 16 17 BCR 26* 21 20 OSMOLALITY 298 298 299 AGRATIO 0.8* 0.8* 0.9* EGFR >60 >[address] completed today- results pending PROVISIONING ANALYST Called CT for prelim read, which he stated looked unchanged from the prior chest CT, most likelyrelated to COVID. PROVISIONING ANALYST will monitor pt closely overnight and will consult with Pulm in the a.m. Lavinia DUMONT TALENT ACQUISITION OPERATIONS MANAGER- BMT pager [phone] [facility] BMT * Keli Case APRN-CNP - 03/02/2020 5:01 PM CDT HPI: febrile temp of 101.3, SPO2 89% OBJ: Vitals: 03/02/20 0835 03/02/20 0916 03/02/20 1206 03/02/20 1559 BP: 123/72 128/87 Pulse: 53 74 Resp: 20 Temp: 98.1 ??F (!) 101.3 ??F SpO2: 98% 97% (!) 89% Weight: 121.2 kg (267 lb 3.2 oz) Height: Physical assessment General appearance - alert, mild distress d/t pain noted Chest - wheezing noted bilateral lower lungs Heart - normal rate, regular rhythm, normal S1, S2, no murmurs, rubs, clicks or gallops Skin - warm to touch Assessment/plan: Pt is moaning in pain (6/10 headache), denies chills but reports feeling warm. Increasing SOB. Plan: -Blood cultures X 2 -consult pulmonary -supplemental O2 -Fiorecet X1 for headache -continue cefe and vanc, vanc trough on 03/03 @ 0530 -albuterol Q4hrs PRN Signed: LUIZ Brink-BC Blood and Marrow Trans[facility] * Whitney Guzman RN - 03/02/2020 1:26 PM CDT Problem: Pain/Discomfort Goal: Patient exhibits reduced pain/discomfort as evidenced by pain scores Outcome: Ongoing Problem: Fall Risk Goal: Fall risk and fall related injury risk are minimized Outcome: Ongoing Problem: Isolation Goal: Prevent Transmission of Infection Outcome: Ongoing Problem: Anemia Goal: Patient able to verbalize preventions and signs & symptoms Outcome: Ongoing * Jocelin Griggs RD/DAE - 03/02/2020 11:50 AM CDT Clinical Nutrition Comments: Pt screened for LOS criteria. Intakes are adequate, consuming 100% of meals. No GI issuesnoted, last BM 02/28. No nutrition interventions warranted at this time. RD will continue to monitor. Diet order accuracy Current diet order: Regular Nutrition recommendation: agree with current nutrition order P.O.Intake for the past 48 hrs:% Meal Taken Av % Min: 90 % Max: 100 % Height: 5' 7.01 (170.2 cm) Weight: 267 lb 3.2 oz (121.2 kg) Body mass index is 41.84 kg/m??.BMI Range: Morbidly Obese Class 3 Laboratory values reviewed. Medications noted. No acute nutrition issues identified at this time. Recommendations: Continue current diet Monitor nutrition per nutrition guidelines. Jocelin Griggs MA, JHON, NIKON Pager: [phone] * Shalini Segal MD - 03/02/2020 9:01 AM CDT Autologous Hematopoietic Stem Cell Daily Note: PATIENT IDENTIFIERS: JALIL LUIS is a 49 year old male who is Day +134 (Day 0 is 10/20/19) of an autologous peripheral blood stem cell transplant with a 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 INTERVAL HISTORY: Awake and in bed this morning Reported having headache overnight, 5/10. headaches is mostly on the left side of his head Feels SOB with activity, ringing in both ears and feels lightheaded Upset about not having a diagnosis as to why he is having continous headaches, and fevers. Fever has stopped but continues to have the headaches. He feels headache correlate with anxiety, on [id number] daily Denies F/C/V/D ROS: A comprehensive review of systems was negative except for: as noted above MEDICATIONS FOR CURRENT ENCOUNTER: SCHEDULED MEDICATIONS: apixaban (ELIQUIS) tablet 5 mg, Oral, BID cefepime (MAXIPIME) 2,000 mg in sterile water (PF) 20 mL syringe, Intravenous, q8h escitalopram (LEXAPRO) tablet 10 mg, Oral, QDAY rOPINIRole (REQUIP) tablet 0.5 mg, Oral, AT BEDTIME sulfamethoxazole-trimethoprim (BACTRIM DS; SEPTRA DS) 800-160 MG tablet 1 tablet, Oral, MON, WED AND FRI valACYclovir (VALTREX) tablet 500 mg, Oral, BID vancomycin (VANCOCIN) 1,750 mg in 535 mL IVPB, Intravenous, q12h [COMPLETED] lidocaine (XYLOCAINE) 1 % injection, Subcutaneous, Once ?? [] lidocaine (XYLOCAINE) 1 % injection, Subcutaneous, Once ?? CONTINUOUS MEDICATIONS: PRN MEDICATIONS: LORazepam (ATIVAN) injection 1 mg, Intravenous, AT BEDTIME PRN magnesium sulfate 2 g in 50 mL bolus, Intravenous, PRN ?? oxyCODONE (immediate release) (ROXICODONE) tablet 5 mg, Oral, q4h PRN VITALS: Vitals: 03/01/20 1203 03/01/20 1605 03/01/20 2351 03/02/20 0755 BP: 125/79 118/72 166/94 126/79 Pulse: 56 58 62 50 Resp: Temp: 98.2 ??F 98.4 ??F 98.8 ??F 98.6 ??F SpO2: 92% 94% 95% 91% Weight: Height: Wt Readings from Last 3 Encounters: 03/01/20 122.6 kg (270 lb 3.2 oz) 02/26/20 120.2 kg (265 lb) 11/15/19 123.4 kg (272 lb) Date 03/01/20 07 - 03/02/20 0659 03/02/20 07 - 03/03/20 0659 Shift 3323-5236 5191-6321 24 Hour Total 2649-7027 2004-9007 24 Hour Total INTAKE P.O. 9205 196 1662 I.V.(mL/kg/hr) 1727.3(1.2) 785.8(0.5) 2513.1(0.9) Shift Total(mL/kg) 3187.3(26) 1385.8(11.3) 4573.1(37.3) OUTPUT Urine(mL/kg/hr) 1730(1.2) 1400(1) 3130(1.1) Shift Total(mL/kg) 1730(14.1) 1400(11.4) 3130(25.5) NET 1457.3 -14.2 1443.1 Weight (kg) 122.6 122.6 122.6 122.6 122.6 122.6 PHYSICAL EXAM: General appearance - alert, well appearing, and in no distress Mental status - alert, oriented to person, place, and time Eyes - pupils equal and reactive, extraocular eye movements intact Mouth - mucous membranes moist, pharynx normal without lesions Chest - clear to auscultation, no wheezes, rales or rhonchi, symmetric air entry Heart - normal rate, regular rhythm, normal S1, S2, no murmurs, rubs, clicks or gallops Abdomen - soft, nontender, nondistended, no masses or organomegaly Neurological - alert, oriented, normal speech, no focal findings or movement disorder noted Musculoskeletal - no joint tenderness, deformity or swelling Extremities - peripheral pulses normal, no pedal edema, no clubbing or cyanosis Skin - normal coloration and turgor, no rashes, no suspicious skin lesions noted PIV - dressing intact, no redness or swelling noted LABS: Recent Labs Component Name 03/01/20235102/29/20233302/29/20 0012 02/27/20 0411 WBC 20.6* 23.4* 26.1* - 7.3 RBC 3.77* 3.64* 3.67* - 4.15* HGB 11.0* 10.8* 10.7* - 11.9* HCT 31.8* 30.8* 31.1* - 35.4* MCV 84.4 84.6 84.7 - 85.3 MCH 29.2 29.7 29.2 - 28.7 MCHC 34.6 35.1 34.4 - 33.6 PLTCOUNT 416* 448* 440* - 402* RDWSD 50.1* 50.8* 51.1* - 49.6 RDW 16.5* 16.6* 16.3* - 16.1* MPV 11.1 10.8 10.5 - 10.4 NRBCABS 0.89* 0.18* 0.04* - 0.00 NRBCAUTOPCT 4.3* 0.8* 0.2* - 0.0 NEUTPCT 88.1* 88.6* 92.0* - - LYMPHSPCT 3.8* 3.9* 3.9* - - MONOPCT 5.6 5.4 2.5* - - EOSPCT 0.0 0.0 0.0 - - BASOPCT 0.2 0.2 0.1 - - IMMGRANSPCT 2.3* 1.9* 1.5* - - NEUTABS 18.1* 20.7* 24.0* - 6.79 LYMPHS 0.8 0.9 1.0 - 0.44* MONO 1.16* 1.27* 0.64 - 0.07* EOS 0.00 0.00 0.00 - - BASO 0.04 0.04 0.03 - - TOTCELLCNT - - - - 100 - = values in this interval not displayed. Recent Labs Component Name 03/01/20235102/29/20233302/29/20 0012 BUN 21 21 18 CREATININE 0.8 1.0 0.9 NA 142 142 143 POTASSIUM 3.7 4.3 4.2 CL 107 109* 111* CO2 18* 21* 19* CALCIUM 8.2* 8.4 8.6 PROT 5.3* 5.5* 5.5* ALB 2.4* 2.5* 2.6* TBILI 0.2 0.2 0.2 ALKPHOS 86 87 89 ALT 94* 95* 40 AST 29 59* 26 ANIONGAP 21* 16 17 BCR 26* 21 20 OSMOLALITY 298 298 299 AGRATIO 0.8* 0.8* 0.9* EGFR >60 >60 >60 Recent Labs Component Name 03/01/20 2352 02/29/20 2334 02/29/20 0012 MAGNESIUM 1.9 1.9 1.9 Recent Labs Component Name 03/01/20 2352 02/29/20 2334 02/29/20 0012 PHOS 3.4 3.2 3.2 Pathology: CD34: pending Infectious Workup Blastomyces: pending Histoplasma blood: pending Histoplasma urine: pending Asperigillus: pending Toxoplasma PCR: pending Bartonella IgG: pending Bartonella IgM: pending Cryptococcus: Negative BC x 2 (02/25/20): NGTD UA with culture (02/25/20): NGTD RVP (02/25/20): ND Covid swab (02/25/20): negative Covid IgG (02/25/20): Negative CXR (02/25/20): pending RADIOLOGY: CT C/A/P (02/26/20): 1. Patchy, peripheral predominant groundglass opacities in [...] acute process identified in the abdomen or pelvis ASSESSMENT/PLAN: JALIL LUIS is a 49 year old male, who is Day +133 (Day 0 is 10/20/19) of an autologous peripheral blood stem cell transplant with a 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 SYSTEMS: Marginal Zone Lymphoma in CR2 pre-transplant Schema: 5A Prep: BEAM, Cell count 10.4 x 10^6 CD34+cells/kg in 5 bags; Planned disease evaluation: day [address] A/P -- still needs day 100 assessment, tentatively scheduled 03/03/20 but could be completed inpatient as well. Will need CD4 count as well. Planned post transplant therapy: none planned at this time -Transfusion threshold: Hgb > 7; Plt > 10; CMV +, transfusion pre meds: none needed -Engraftment: ANC day +9 (10/29/19); plt engraftment 11/03/19 (day +14) OI prophylaxis: Bacterial:??Hold Pen VK d/t starting Cefepime PJP:??Bactrim DS MWF Viral: Valtrex 500mg BID Covid/Persistent Fevers -tested positive early January after girlfriend was tested +, didn't have symptoms for 2 weeks, but now has been consistently febrile for several weeks - Covid negative; covid IgG - negative - IgG - 209 - not replaced at this time d/t headaches - CT C/A/P, results above - Continue cefepime 2g Q8 and Vancomycin -Plan to stop cefe tomorrow after 1600 dose and stop vanc 03/04 - ID consult, appreciate recs > Would like input on Covid results as well as any additional testing for persistent fevers Headaches - seem to worsen with fevers - ID concern for meningitis > Ppx Valtrex > Dex 10mg Q6h, d/c 03/01 - Neuro consult >Unable to get LP at bedside, IR did LP on 03/01. Results negative for meningitis GGO - Found on CT 02/26/20 -Pulm consulted; appreciate recs -Bronch not necessary at this time Anxiety/Depression - Lexapro 10 mg daily -gave ativan 0.5mg X 1 dose today Restless Leg Syndrome - Requip 0.25 mg QHS Right IJ venous clot 09/27/19 - Eliquis 5 mg BID Discharge Planning: Patients preferred contact information: cell Caregiver: sister, girlfriend Preferred D/C Pharmacy: [facility] Intended lodging: home Referring provider: Cesar Tavares Disposition: Remain on 8S for infectious workup Keli Case, JEROMYP-BC Blood and Marrow Transplant [facility] I personally evaluated and examined Mr. Jalil Luis. I confirmed the alfonso elements of of history and physical examination. I also discussed the assessment and plan in detail with the team on rounds and with the patient. I made some modifications to the above note. I fully concur with the above assessment and plan. Ezio Segal MD External Gr[employer]ender Department of Internal Medicine Division of Hematology Oncology * Jayson Friedman MD - 03/01/2020 12:19 PM CDT [facility] [place] [facility] Progress Note Admitted on: 02/25/2020 9:41 PM Hospital stay: Day 5 Room: [facility]/808- Primary Team: Attending: Shalini Segal MD Reason for ID consultation: recent??COVID-19 positive on 01/07/2020 per patient report, fever over the past 2 weeks. 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 ID is called for consult regarding management of recent positive??COVID- 19 and fever. SUBJECTIVE & INTERVAL HISTORY: Patient had LP with IR today. 1/10 pain. Mild neck stiffness. No other complains. No diarrhea. Current Abx Cefepime (02/25/20 - ) Iv vancomycin 02/25-?? Valacyclovir?? Prior Abx: Penicillin VK PO ?? Inpatient Medications ??? cefepime 2 g Intravenous q8h ??? dexamethasone 10 mg Oral q6h ??? escitalopram 10 mg Oral QDAY ??? lidocaine Subcutaneous Once ??? rOPINIRole 0.5 mg Oral AT BEDTIME ??? sulfamethoxazole-trimethoprim 1 tablet Oral MON, WED AND FRI ??? valACYclovir 500 mg Oral BID ??? vancomycin 1,750 mg Intravenous q12h PRN Medications LORazepam ??? magnesium sulfate ??? oxyCODONE (immediate release) OBJECTIVE: Vital Signs: BP 125/79 Pulse 56 Temp 98.2 ??F (36.8 ??C) (Oral) Resp 20 Ht 5' 7.01 (1.702 m) Wt 270 lb 3.2 oz (122.6 kg) SpO2 92% BMI 42.31 kg/m2 Temp (24hrs), Av.5 ??F (36.9 ??C), Min:98.2 ??F (36.8 ??C), Max:99.2 ??F (37.3 ??C) I/O: Intake/Output Summary (Last 24 hours) at 03/01/2020 1219 Last data filed at 03/01/2020 1110 Gross per 24 hour Intake 3047.3 ml Output 3570 ml Net -522.7 ml Physical Exam: General: Alert, cooperative Head: Normocephalic and atraumatic Eyes: PERRLA, EOMI, normal conjunctiva, no icterus ENT: Moist mucus membranes, oropharyngeal clear Neck: Supple, no LAD, no JVD, trachea midline Lungs: No use of accessory breathing muscles. CTAB, no wheezes, crackles, rhonchi Heart: RRR, normal S1 and S2, no murmur Abdomen: Soft, non-distended, non-tender, +BS Neurologic: Alert & oriented x 4, no focal deficits Extremities: No clubbing, cyanosis, or edema Skin: Warm and dry, no rashes appreciated Psychiatry: Appropriate mood/affect Lines: PIV LABS CBC: Recent Labs Component Name 02/29/20233302/29/201102/27/20 2349 WBC 23.4* 26.1* 19.0* RBC 3.64* 3.67* 3.68* HGB 10.8* 10.7* 10.7* HCT 30.8* 31.1* 31.5* MCV 84.6 84.7 85.6 BMP: Recent Labs Component Name 02/29/20233302/29/20 0012 02/27/20 2349 NA 142 143 142 CL 109* 111* 108* CO2 21* 19* 22 BUN 21 18 16 CREATININE 1.0 0.9 0.9 ALB 2.5* 2.6* 2.6* PROT 5.5* 5.5* 5.7* estimated creatinine clearance is 112.1 mL/min (based on SCr of 1 mg/dL). LFTs: Recent Labs Component Name 02/29/20 2334 02/29/20 0012 02/27/20 2349 02/27/20 0411 02/26/20 0042 11/15/19 0911 11/11/19 1231 11/04/19 0858 11/01/19 0909 10/30/19 1115 10/29/19 0002 10/28/19 0000 10/27/19 0007 10/26/19 0012 10/25/19 0013 10/24/19 0015 10/23/19 0031 10/22/19 0015 10/20/19 2359 10/20/19 0041 10/19/19 0021 10/17/19 2343 10/17/19 0020 10/16/19 0002 10/15/19 0019 10/13/19 2319 10/13/19 0951 09/30/19 1115 09/09/19 1242 08/26/19 1345 08/19/19 0542 08/18/19 0555 07/26/19 1248 06/28/19 1351 06/09/19 1341 05/24/19 1206 03/22/19 1500 ALKPHOS 87 89 97 109 110 102 108 128 124 119 102 95 84 69 72 64 64 73 77 80 82 86 83 90 104 126 550722* 108 108 68 65 74 63 70 65 125 ALT 95* 40 29 29 31 22 29 42 47 48 43 54 53 46 56* 68* 77* 103* 122* 117* 137* 76* 70* 40 33 49 46 58* 36 48 35 40 68* 31 30 31 22 AST 59* 26 22 22 29 15 18 26 25 27 14 18 17 12 12 14 19 23 50* 28 56* 25 29 19 15 21 20 23 20 31 2931 31 19 22 19 20 Results for LUIS JALIL J ( ) as of 03/01/2020 12:20 Ref. Range 03/01/2020 10:39 03/01/2020 10:48 Glucose,CSF-STAT Latest Ref Range: 40 - 70 mg/dL 81 (H) Protein CSF Latest Ref Range: 15 - 45 mg/dL 20 Xanthochromia Fluid Latest Ref Range: Negative Negative Volume Fluid Latest Units: mL 3.0 Color Fluid Latest Ref Range: Colorless, Straw Colorless Clarity Fluid Latest Ref Range: Clear Clear Differential Unknown Manual Differential to follow. RBC Calculation Latest Units: /uL 1 WBC Calculation Fluid Latest Ref Range: 0 - 5 /uL 1 Lymphocytes % Fluid Latest Units: % 46 Monocytes % Fluid Latest Units: % 50 Macrophages % Fluid Latest Units: % 4 MICROBIOLOGY: RESPIRATORY PATHOGEN PANEL BY PCR 02/25/20: Not detected ?? SARS-COV-2 (COVID-19) 02/25/20: in process ?? 02/25/20: COVID-19 Ab IgG: negative ?? 02/26/20: CMV PCR Quant Blood: in process EBV PCR Quant Blood: in process ADENOVIRUS PCR Quant Blood: in process ?? Microbiology: Blood culture 02/25/20: x 2 in process ??02/26/20: x 2 in process Blood AFB culture pending Blood fungal culture pending Urine culture 02/25/20: in process UA: WBC 0-5 Cryptococcal Ag negative 02/25 HISTOPATHOLOGY: None at this admission IMAGING & PROCEDURE: Pertinen images independently reviewed; report in chart. CT chest/abd/pelvis 02/25 1. Patchy, peripheral predominant groundglass opacities in [...] process identified in the abdomen or pelvis. ?? MRI brain 02/25 No evidence of acute intracranial findings. ?? ASSESSMENT & RECOMMENDATIONS: 1. Fever in an autologous peripheral blood stem cell transplant patient and splenectomy: DDx is broad including bacterial, fungal, viral and parasite infection. Important to follow BCx and send fungal and AFB BCx. Associated headache, photophobia, and neck pain are concerning, need to evaluate of ba cterial (Strept pneumoniae, Meningococci, Haemophilus, Listeria, etc), fungal and viral meningitis,and other pathogenic 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 infection. Ground glass opacity in bilateral lungs pm CT C/A/P could 2nd to previous COVID infection. Very less likely 2nd to fungal infection. 2. Headache, associated with photophobia and neck pain: Severe, duration ~2 weeks. 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 MRI brain negative. Improving today with iv antibiotics use over the weekend. Not able to r/o Headache is related to his COVID before. Less likely herpes encephalitis with negative MRI brain. Cryptococcus Ag negative. 3. 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 4. 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 Recent??COVID-19 positive on 01/07/2020 per patient report: Not received any treatment or clinical trial for this). COVID-19 Ab IgG not detected may be related to low immune response secondary to his immunosuppressive condition. 6. Renal function: Estimated Creatinine Clearance: 138.1 mL/min (based on SCr of 0.8 mg/dL). 7. 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 - Continue cefepime and vancomycin, need at least 7 days for pneumonia treatment. ?? LP cell count suggested no significant sign of meningitis. Send CSF culture/fungal culture/AFB culture. ?? Follow up with fungal blood culture and AFB blood culture ?? Follow up with Toxoplasma PCR ?? Monitor leukocytosis (could 2nd to steroid use) ?? - Follow CBC with manual diff, CMP, and complete urinalysis weekly (at minimum) while on IV antibiotics We will sign off. Primary team: hematology Case was discussed with Dr Damian. >35 minutes spent on the care of this patient. > 50% was spent in counseling and coordinationof care that included the patient and the primay team. Jayson Friedman M.D. Infectious Diseases fellow (Team 1) Pager [phone], cell phone [phone]. You can call or text me for communication. Associated attestation - Joce Damian DO - 03/01/2020 2:17 PM CDT I interviewed and examined the patient and discussed the patient with the team. I reviewed the fellow's note and agree with the findings and assessment and plan except as noted below. Please see the fellow's note. * Cassie Wilson RN - 03/01/2020 11:09 AM CDT Problem: Pain/Discomfort Goal: Patient exhibits reduced pain/discomfort as evidenced by pain scores Outcome: Ongoing Goal: Patient uses pharmacological and non-pharmacological pain management strategies. Outcome: Ongoing Goal: Patient verbalizes acceptable level of pain relief and ability to engage in desired activity. Outcome: Ongoing Problem: Isolation Goal: Prevent Transmission of Infection Outcome: Ongoing Problem: Anemia Goal: Patient able to verbalize preventions and signs & symptoms Outcome: Ongoing Problem: Protective Precautions Goal: Patient will remain free of Nosocomial Infections Outcome: Ongoing * Shalini Segal MD - 03/01/2020 6:41 AM CDT Autologous Hematopoietic Stem Cell Daily Note: PATIENT IDENTIFIERS: JALIL LUIS is a 49 year old male who is Day +133 (Day 0 is 10/20/19) of an autologous peripheral blood stem cell transplant with a 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 INTERVAL HISTORY: Awake and eating breakfast this AM Reported having tension headache yesterday post LP attempt He took PRN pain med and ativan for anxiety and was able to sleep. LP scheduled for today, prn ativan and fentanyl ordered Denies any headache this morning.denies chills or fever overnight Reported dry cough yesterday that is better this AM Denies SOB, dizziness or lightheadedness Denies F/C/V/D ROS: A comprehensive review of systems was negative except for: as noted above MEDICATIONS FOR CURRENT ENCOUNTER: SCHEDULED MEDICATIONS: cefepime (MAXIPIME) 2,000 mg in sterile water (PF) 20 mL syringe, Intravenous, q8h dexamethasone (DECADRON) tablet 10 mg, Oral, q6h escitalopram (LEXAPRO) tablet 10 mg, Oral, QDAY rOPINIRole (REQUIP) tablet 0.5 mg, Oral, AT BEDTIME sulfamethoxazole-trimethoprim (BACTRIM DS; SEPTRA DS) 800-160 MG tablet 1 tablet, Oral, MON, WED AND FRI valACYclovir (VALTREX) tablet 500 mg, Oral, BID vancomycin (VANCOCIN) 1,750 mg in 535 mL IVPB, Intravenous, q12h ?? [] lidocaine PF 0.5% (XYLOCAINE) 0.5 % injection, Infiltration, Once ?? CONTINUOUS MEDICATIONS: PRN MEDICATIONS: fentaNYL (PF) (SUBLIMAZE) injection 50 mcg, Intravenous, Once PRN LORazepam (ATIVAN) injection 0.5 mg, Intravenous, Once PRN LORazepam (ATIVAN) injection 1 mg, Intravenous, AT BEDTIME PRN magnesium sulfate 2 g in 50 mL bolus, Intravenous, PRN ?? oxyCODONE (immediate release) (ROXICODONE) tablet 5 mg, Oral, q4h PRN VITALS: Vitals: 02/29/20 1623 02/29/20 2335 03/01/20 0459 03/01/20 0806 BP: 136/84 121/72 122/72 125/79 Pulse: 57 104 50 56 Resp: 18 18 18 18 Temp: 98.2 ??F 98.6 ??F 99.2 ??F 98.2 ??F SpO2: 94% 93% 93% 92% Weight: 122.6 kg (270 lb 3.2 oz) Height: Wt Readings from Last 3 Encounters: 03/01/20 122.6 kg (270 lb 3.2 oz) 02/26/20 120.2 kg (265 lb) 11/15/19 123.4 kg (272 lb) Date 02/29/20699 - 03/01/20 0659 03/01/20 07 - 03/02/20 0659 Shift 6329-8705 1374-4950 24 Hour Total 9269-8539 5720-8438 24 Hour Total INTAKE P.O. 1080 1080 600 600 I.V.(mL/kg/hr) 1550.4 1550.4 Shift Total(mL/kg) 1080(8.8) 1080(8.8) 2150.4(17.5) 2150.4(17.5) OUTPUT Urine(mL/kg/hr) 1999(1.4) 1320(0.9) 3320(1.1) 700 700 Shift Total(mL/kg) 1999(16.3) 1320(10.8) 3320(27.1) 700(5.7) 700(5.7) NET -920 -1320 -2240 1450.4 1450.4 Weight (kg) 122.4 122.6 122.6 122.6 122.6 122.6 PHYSICAL EXAM: General appearance - alert, well appearing, and in no distress Mental status - alert, oriented to person, place, and time Eyes - pupils equal and reactive, extraocular eye movements intact Mouth - mucous membranes moist, pharynx normal without lesions Chest - clear to auscultation, no wheezes, rales or rhonchi, symmetric air entry Heart - normal rate, regular rhythm, normal S1, S2, no murmurs, rubs, clicks or gallops Abdomen - soft, nontender, nondistended, no masses or organomegaly Neurological - alert, oriented, normal speech, no focal findings or movement disorder noted Musculoskeletal - no joint tenderness, deformity or swelling Extremities - peripheral pulses normal, no pedal edema, no clubbing or cyanosis Skin - normal coloration and turgor, no rashes, no suspicious skin lesions noted PIV - dressing intact, no redness or swelling noted LABS: Recent Labs Component Name 02/29/20 2334 02/29/20 0012 02/27/20 2349 02/27/20 0411 WBC 23.4* 26.1* 19.0* 7.3 RBC 3.64* 3.67* 3.68* 4.15* HGB 10.8* 10.7* 10.7* 11.9* HCT 30.8* 31.1* 31.5* 35.4* MCV 84.6 84.7 85.6 85.3 MCH 29.7 29.2 29.1 28.7 MCHC 35.1 34.4 34.0 33.6 PLTCOUNT 448* 440* 444* 402* RDWSD 50.8* 51.1* 49.8 49.6 RDW 16.6* 16.3* 15.9* 16.1* MPV 10.8 10.5 10.8 10.4 NRBCABS 0.18* 0.04* 0.02* 0.00 NRBCAUTOPCT 0.8* 0.2* 0.1* 0.0 NEUTPCT 88.6* 92.0* 89.2* - LYMPHSPCT 3.9* 3.9* 6.4* - MONOPCT 5.4 2.5* 3.2 - EOSPCT 0.0 0.0 0.0 - BASOPCT 0.2 0.1 0.1 - IMMGRANSPCT 1.9* 1.5* 1.1* - NEUTABS 20.7* 24.0* 17.0* 6.79 LYMPHS 0.9 1.0 1.2 0.44* MONO 1.27* 0.64 0.60 0.07* EOS 0.00 0.00 0.00 - BASO 0.04 0.03 0.01 - TOTCELLCNT - - - 100 Recent Labs Component Name 02/29/20 2334 02/29/20 0012 02/27/20 2349 BUN 21 18 16 CREATININE 1.0 0.9 0.9 NA 142 143 142 POTASSIUM 4.3 4.2 4.6* CL 109* 111* 108* CO2 21* 19* 22 CALCIUM 8.4 8.6 8.6 PROT 5.5* 5.5* 5.7* ALB 2.5* 2.6* 2.6* TBILI 0.2 0.2 0.1* ALKPHOS 87 89 97 ALT 95* 40 29 AST 59* 26 22 ANIONGAP 16 17 17 BCR 21 20 18 OSMOLALITY 298 299 298 AGRATIO 0.8* 0.9* 0.8* EGFR >60 >60 >60 Recent Labs Component Name 02/29/20 2334 02/29/20 0012 02/27/20 2349 MAGNESIUM 1.9 1.9 1.8 Recent Labs Component Name 02/29/20 2334 02/29/20 0012 02/27/20 2349 PHOS 3.2 3.2 2.7 Pathology: CD34: pending Infectious Workup Blastomyces: pending Histoplasma blood: pending Histoplasma urine: pending Asperigillus: pending Toxoplasma PCR: pending Bartonella IgG: pending Bartonella IgM: pending Cryptococcus: Negative BC x 2 (02/25/20): NGTD UA with culture (02/25/20): NGTD RVP (02/25/20): ND Covid swab (02/25/20): negative Covid IgG (02/25/20): Negative CXR (02/25/20): pending RADIOLOGY: CT C/A/P (02/26/20): 1. Patchy, peripheral predominant groundglass opacities in [...] acute process identified in the abdomen or pelvis ASSESSMENT/PLAN: JALIL LUIS is a 49 year old male, who is Day +133 (Day 0 is 10/20/19) of an autologous peripheral blood stem cell transplant with a 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 SYSTEMS: Marginal Zone Lymphoma in CR2 pre-transplant Schema: 5A Prep: BEAM, Cell count 10.4 x 10^6 CD34+cells/kg in 5 bags; Planned disease evaluation: day [address] A/P -- still needs day 100 assessment, tentatively scheduled 03/03/20 but could be completed inpatient as well. Will need CD4 count as well. Planned post transplant therapy: none planned at this time -Transfusion threshold: Hgb > 7; Plt > 10; CMV +, transfusion pre meds: none needed -Engraftment: ANC day +9 (10/29/19); plt engraftment 11/03/19 (day +14) OI prophylaxis: Bacterial:??Hold Pen VK d/t starting Cefepime PJP:??Bactrim DS MWF Viral: Valtrex 500mg BID Covid/Persistent Fevers -tested positive early January after girlfriend was tested +, didn't have symptoms for 2 weeks, but now has been consistently febrile for several weeks - Covid negative; covid IgG - negative - IgG - 209 - not replaced at this time d/t headaches - CT C/A/P, results above - Continue cefepime 2g Q8 and Vancomycin -Plan to stop vanc pending LP results. - ID consult, appreciate recs > Would like input on Covid results as well as any additional testing for persistent fevers Headaches - seem to worsen with fevers - ID concern for meningitis > Ppx Valtrex > Dex 10mg Q6h, plan to stop pending LP results - Neuro consult >Unable to get LP at bedside, will plan for IR to do LP today or tomorrow. GGO - Found on CT 02/26/20 -Pulm consulted; appreciate recs -Bronch not necessary at this time Anxiety/Depression - Lexapro 10 mg daily Restless Leg Syndrome - Requip 0.25 mg QHS Right IJ venous clot 09/27/19 - Eliquis 5 mg BID - holding for LP Discharge Planning: Patients preferred contact information: cell Caregiver: sister, girlfriend Preferred D/C Pharmacy: [facility] Intended lodging: home Referring provider: Cesar Tavares Disposition: Remain on 8S for infectious workup Keli Case, AGNP-BC Blood and Marrow Transplant [facility] I personally evaluated and examined Mr. Jalil Luis. I confirmed the alfonso elements of of history and physical examination. I also discussed the assessment and plan in detail with the team on rounds and with the patient. I made some modifications to the above note. I fully concur with the above assessment and plan. Ezio Segal MD External [employer]ender Department of Internal Medicine Division of Hematology Oncology * Jayson Friedman MD - 02/29/2020 1:33 PM CDT [facility] [facility] Progress Note Admitted on: 02/25/2020 9:41 PM Hospital stay: Day 4 Room: [address] [place] [address] Primary Team: Attending: Shalini Segal MD Reason for ID consultation: recent??COVID-19 positive on 01/07/2020 per patient report, fever over the past 2 weeks. 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 ID is called for consult regarding management of recent positive??COVID- 19 and fever. SUBJECTIVE & INTERVAL HISTORY: Patient had LP attempt on bedside but failed. Have headache /. Still some neck stiffness. No fever. No other new complains. Current Abx Cefepime (02/25/20 - ) Iv vancomycin 02/25-?? Valacyclovir?? Prior Abx: Penicillin VK PO ?? Inpatient Medications ??? cefepime 2 g Intravenous q8h ??? dexamethasone 10 mg Oral q6h ??? escitalopram 10 mg Oral QDAY ??? lidocaine PF 0.5% Infiltration Once ??? rOPINIRole 0.5 mg Oral AT BEDTIME ??? sulfamethoxazole-trimethoprim 1 tablet Oral MON, WED AND FRI ??? valACYclovir 500 mg Oral BID ??? vancomycin 1,750 mg Intravenous q12h PRN Medications fentaNYL (PF) ??? LORazepam ??? LORazepam ??? magnesium sulfate ??? oxyCODONE (immediate release) OBJECTIVE: Vital Signs: BP 125/76 Pulse 77 Temp 98.7 ??F (37.1 ??C) (Oral) Resp 18 Ht 5' 7.01 (1.702 m) Wt 269 lb 14.4 oz (122.4 kg) SpO2 91% BMI 42.26 kg/m2 Temp (24hrs), Av.6 ??F (37 ??C), Min:98.4 ??F (36.9 ??C), Max:98.7 ??F (37.1 ??C) I/O: Intake/Output Summary (Last 24 hours) at 02/29/2020 1334 Last data filed at 02/29/2020 1232 Gross per 24 hour Intake 2129.42 ml Output 1050 ml Net 1079.42 ml Physical Exam: General: Alert, cooperative Head: Normocephalic and atraumatic Eyes: PERRLA, EOMI, normal conjunctiva, no icterus ENT: Moist mucus membranes, oropharyngeal clear Neck: Supple, no LAD, no JVD, trachea midline Lungs: No use of accessory breathing muscles. CTAB, no wheezes, crackles, rhonchi Heart: RRR, normal S1 and S2, no murmur Abdomen: Soft, non-distended, non-tender, +BS Neurologic: Alert & oriented x 4, no focal deficits Extremities: No clubbing, cyanosis, or edema Skin: Warm and dry, no rashes appreciated Psychiatry: Appropriate mood/affect Lines: PIV LABS CBC: Recent Labs Component Name 02/29/20 0012 02/27/20 2349 02/27/20 0411 WBC 26.1* 19.0* 7.3 RBC 3.67* 3.68* 4.15* HGB 10.7* 10.7* 11.9* HCT 31.1* 31.5* 35.4* MCV 84.7 85.6 85.3 BMP: Recent Labs Component Name 02/29/20 0012 02/27/20 2349 02/27/20 0411 NA 143 142 140 CL 111* 108* 108* CO2 19* 22 19* BUN 18 16 12 CREATININE 0.9 0.9 0.8 ALB 2.6* 2.6* 2.8* PROT 5.5* 5.7* 6.2 estimated creatinine clearance is 124.4 mL/min (based on SCr of 0.9 mg/dL). LFTs: Recent Labs Component Name 02/29/20 0012 02/27/20 2349 02/27/20 0411 02/26/20 0042 11/15/19 0911 11/11/19 1231 11/04/19 0858 11/01/19 0909 10/30/19 1115 10/29/19 0002 10/28/19 0000 10/27/19 0007 10/26/19 0012 10/25/19 0013 10/24/19 0015 10/23/19 0031 10/22/19 0015 10/20/19 2359 10/20/19 0041 10/19/19 0021 10/17/19 2343 10/17/19 0020 10/16/19 0002 10/15/19 0019 10/13/19 2319 10/13/19 0951 09/30/19 1115 09/09/19 1242 08/26/19 1345 08/19/19 0542 08/18/19 0555 07/26/19 1248 06/28/19 1351 06/09/19 1341 05/24/19 1206 03/22/19 1500 ALKPHOS 89 97 109 110 102 108 128 124 119 102 95 84 69 72 64 64 73 77 80 82 86 83 90 104 126 137 155* 108 108 68 65 74 63 70 65 125 ALT 40 29 29 31 22 29 42 47 48 43 54 53 46 56* 68* 77* 103* 122* 117* 137* 76* 70* 40 33 49 46 58* 36 48 35 40 68* 31 30 31 22 AST 26 22 22 29 15 18 26 25 27 14 18 17 12 12 14 19 23 50* 28 56* 25 29 19 15 21 20 23 20 31 29 31 31 19 22 19 20 MICROBIOLOGY: RESPIRATORY PATHOGEN PANEL BY PCR 02/25/20: Not detected ?? SARS-COV-2 (COVID-19) 02/25/20: in process ?? 02/25/20: COVID-19 Ab IgG: negative ?? 02/26/20: CMV PCR Quant Blood: in process EBV PCR Quant Blood: in process ADENOVIRUS PCR Quant Blood: in process ?? Microbiology: Blood culture 02/25/20: x 2 in process ??02/26/20: x 2 in process Blood AFB culture pending Blood fungal culture pending Urine culture 02/25/20: in process UA: WBC 0-5 Cryptococcal Ag negative 02/25 HISTOPATHOLOGY: None at this admission IMAGING & PROCEDURE: Pertinen images independently reviewed; report in chart. CT chest/abd/pelvis 02/25 1. Patchy, peripheral predominant groundglass opacities in [...] process identified in the abdomen or pelvis. ?? MRI brain 02/25 No evidence of acute intracranial findings. ?? ASSESSMENT & RECOMMENDATIONS: 1. Fever in an autologous peripheral blood stem cell transplant patient and splenectomy: DDx is broad including bacterial, fungal, viral and parasite infection. Important to follow BCx and send fungal and AFB BCx. Associated headache, photophobia, and neck pain are concerning, need to evaluate of ba cterial (Strept pneumoniae, Meningococci, Haemophilus, Listeria, etc), fungal and viral meningitis,and other pathogenic 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 infection. Ground glass opacity in bilateral lungs pm CT C/A/P could 2nd to previous COVID infection. Very less likely 2nd to fungal infection. 2. Headache, associated with photophobia and neck pain: Severe, duration ~2 weeks. 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 MRI brain negative. Improving today with iv antibiotics use over the weekend. Not able to r/o Headache is related to his COVID before. Less likely herpes encephalitis with negative MRI brain. Cryptococcus Ag negative. 3. 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 4. 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 Recent??COVID-19 positive on 01/07/2020 per patient report: Not received any treatment or clinical trial for this). COVID-19 Ab IgG not detected may be related to low immune response secondary to his immunosuppressive condition. 6. Renal function: Estimated Creatinine Clearance: 138.1 mL/min (based on SCr of 0.8 mg/dL). 7. 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 - Continue cefepime and vancomycin, need at least 7 days for pneumonia treatment. ?? LP later and follow up with result ?? Follow up with fungal blood culture and AFB blood culture ?? Follow up with Toxoplasma PCR ?? Monitor leukocytosis (could 2nd to steroid use) ?? - Follow CBC with manual diff, CMP, and complete urinalysis weekly (at minimum) while on IV antibiotics We will continue to follow and monitor the patient. Primary team: hematology Case was discussed with Dr Damian. >35 minutes spent on the care of this patient. > 50% was spent in counseling and coordinationof care that included the patient and the primay team. Jayson Friedman M.D. Infectious Diseases fellow (Team 1) Pager [phone], cell phone [phone]. You can call or text me for communication. Associated attestation - Joce Damian DO - 02/29/2020 4:15 PM CDT I interviewed and examined the patient and discussed the patient with the team. I reviewed the fellow's note and agree with the findings and assessment and plan except as noted below. Please see the fellow's note. * Cassie Wilson, ROSEMARY - 02/29/2020 12:35 PM CDT Problem: Pain/Discomfort Goal: Patient exhibits reduced pain/discomfort as evidenced by pain scores Outcome: Ongoing Goal: Patient uses pharmacological and non-pharmacological pain management strategies. Outcome: Ongoing Goal: Patient verbalizes acceptable level of pain relief and ability to engage in desired activity. Outcome: Ongoing Problem: Fall Risk Goal: Fall risk and fall related injury risk are minimized Outcome: Ongoing Problem: Isolation Goal: Prevent Transmission of Infection Outcome: Ongoing Problem: Anemia Goal: Patient able to verbalize preventions and signs & symptoms Outcome: Ongoing Problem: Protective Precautions Goal: Patient will remain free of Nosocomial Infections Outcome: Ongoing * Vianey Magaña DO - 02/29/2020 10:24 AM CDT Neurology Progress Note Patient: Jalil Luis Room: 808 Age: [age] year old Subjective: Jalil Luis is a 49 year old male with a hx of marginal zone lymphoma (s/p BMT 10/2019), splenectomy, who is admitted with a chief complaint of fevers and COOPER for the past 2 weeks. Of note, the pt tested positive for COVID in early January. Was admitted on 02/24 for an infectious workup. Overnight: The pt reports that he slept well overnight. Noted that yesterday he developed a tension-type COOPER from overthinking and becoming too stressed out after finding out LP was being pushed back to today due to 2nd COVID testing results not out yet. 2nd COVID test negative. No COOPER currently. No fevers overnight. Plan for lumbar puncture today. Objective: BP 125/76 Pulse 77 Temp 98.7 ??F (37.1 ??C) (Oral) Resp 18 Ht 1.702 m (5' 7.01 ) Wt 122.4 kg (269 lb 14.4 oz) SpO2 91% BMI 42.26 kg/m2 Temp (30hrs) Max:98.7 ??F (37.1 ??C) Body mass index is 42.26 kg/m??. Exam: General: Con - NAD, afebrile, pleasant and cooperative Heent - NCAT, MMM, anicteric, PERRLA Neck - No JVD, LAD, trachea midline CV - RRR for age, no murmurs Pulm - CTAB, no w/r/r Abd - BS+, soft, NT/ND Ext: Motor and sensation intact in all 4 extremities Labs: Recent Results (from the past 24 hour(s)) CBC W AUTO DIFFERENTIAL Collection Time: 02/29/20 12:12 AM Result Value Ref Range WBC 26.1 (H) 3.5 - 10.5 10??3/uL RBC 3.67 (L) 4.30 - 5.70 10??6/uL Hemoglobin 10.7 (L) 13.5 - 17.5 g/dL Hematocrit 31.1 (L) 39.0 - 50.0 % MCV 84.7 81.0 - 97.0 fL MCH 29.2 28.0 - 34.0 pg MCHC 34.4 32.0 - 36.0 g/dL Platelet Count 440 (H) 150 - 400 10??3/uL RDW-SD 51.1 (H) 36.0 - 50.0 fL RDW-CV 16.3 (H) 11.2 - 14.8 % MPV 10.5 9.3 - 12.8 fL nRBC Absolute 0.04 (H) 0 10??3/uL nRBC Auto 0.2 (H) 0 /100 WBC Neutrophils % 92.0 (H) 35.0 - 70.0 % Lymphocytes % 3.9 (L) 19.7 - 55.1 % Monocytes % 2.5 (L) 3.0 - 15.0 % Eosinophils % 0.0 0.0 - 6.0 % Basophil % 0.1 0.0 - 1.5 % Neutrophils Absolute 24.0 (H) 1.6 - 7.0 10??3/uL Lymphocyte Absolute 1.0 0.8 - 2.9 10??3/uL Monocytes Absolute 0.64 0.14 - 0.66 10??3/uL Eosinophils Absolute 0.00 0.00 - 0.45 10??3/uL Basophils Absolute 0.03 0.00 - 0.06 10??3/uL Immature Granulocytes % 1.5 (H) 0.0 - 1.0 % COMPREHENSIVE METABOLIC PANEL Collection Time: 02/29/20 12:12 AM Result Value Ref Range BUN 18 7 - 26 mg/dL Creatinine 0.9 0.6 - 1.2 mg/dL Sodium 143 136 - 145 mmol/L Potassium 4.2 3.5 - 4.5 mmol/L Chloride 111 (H) 98 - 107 mmol/L CO2 19 (L) 22 - 29 mmol/L Glucose 122 (H) 70 - 115 mg/dL Calcium 8.6 8.4 - 10.2 mg/dL Protein Total 5.5 (L) 6.0 - 8.3 g/dL Albumin 2.6 (L) 3.4 - 5.0 g/dL Bilirubin Total 0.2 0.2 - 1.2 mg/dL Alkaline Phosphatase 89 40 - 150 Units/L ALT 40 0 - 55 Units/L AST 26 5 - 34 Units/L Anion Gap 17 8 - 18 BUN/Creatinine Ratio 20 7 - 23 Osmolality Calculated 299 270 - 300 mOsm/kg Albumin/Globulin Ratio 0.9 (L) 1.1 - 2.3 eGFR >60 >60 mL/min/1.73 m2 MAGNESIUM BLOOD Collection Time: 02/29/20 12:12 AM Result Value Ref Range Magnesium 1.9 1.6 - 2.6 mg/dL PHOSPHORUS BLOOD Collection Time: 02/29/20 12:12 AM Result Value Ref Range Phosphorus 3.2 2.3 - 4.7 mg/dL Assessment and Plan: Jalil Luis is a 49 year old male with a hx of marginal zone lymphoma (s/p BMT 10/2019), splenectomy, who is admitted with a chief complaint of fevers and COOPER for the past 2 weeks. Of note, the pt tested positive for COVID in early January. Was admitted on 02/24 for an infectious workup. Blood cx and UA/urine cx negative to date. RVP negative. CT chest/abd/pelvis with bilateral patchy peripheral lung ground glass opacities likely 2/2 remnants of COVID from early January. CMV, EBV, COVID x2, cryptococcus Ag negative. Will get lumbar puncture done today. # Persistent fever and headaches - concern for meningitis vs. 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; more likely asx meningitis and less likely bacterial meningitis as pt is clinically stable and appears well - no recent fevers however pt continues to having occasional headaches - WBC this AM elevated at 19->26.1 but this is likely in the setting of steroid/dexamethasone use - MRI brain revealing no intracranial processes; no meningeal enhancement of metastasis - COVID test x2 negative - will perform a lumbar puncture today (eliquis held since 02/25) - will send CSF for cell count, protein, glucose, oligoclonal bands, flow cytometry, herpes family including herpes 7 - continue on broad spectrum Abx with IV cefepime 2g q8h and IV vancomycin - ID has been consulted; follow up toxo, bartonella, histo, blasto, aspergillus testing - follow up fungal and AFB blood cx # Ground glass opacities - seen on CT chest/abd/pelvis: bilateral patchy peripheral GGO could represent infection but more likely could be remnants from episode of COVID in early January - RVP negative - blood cx, urine cx negative - continue on IV cefepime and IV vancomycin - no indication for bronchoscopy with BAL this admission - will repeat imaging in 4-6 weeks Inpatient Checklist: Lines: PIV Prophylaxis: N/A Diet: Regular Activity: Activity as tolerated Code status: Full Code Disposition: Inpatient monitoring Discussed Assessment and Plan with Attending Physician, Dr. Ernesto Magaña Internal Medicine, PGY-2 * Shalini Segal MD - 02/29/2020 7:15 AM CDT Autologous Hematopoietic Stem Cell Daily Note: PATIENT IDENTIFIERS: JALIL LUIS is a 49 year old male who is Day +132 (Day 0 is 10/20/19) of an autologous peripheral blood stem cell transplant with a 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 INTERVAL HISTORY: Doing well this morning Slept better overnight with the ativan Had a headache but attributes this to thinking too much and anxiety. States he knows what that type of headache feels like. Ativan helped and he feels better this morning Denies any neck pain Denies fever, chills Dry cough present BARNES present, improving some Denies N/V/D and abdominal pain Appetite is good Plan to have LP today ROS: A comprehensive review of systems was negative except for: as noted above MEDICATIONS FOR CURRENT ENCOUNTER: SCHEDULED MEDICATIONS: cefepime (MAXIPIME) 2,000 mg in sterile water (PF) 20 mL syringe, Intravenous, q8h dexamethasone (DECADRON) tablet 10 mg, Oral, q6h escitalopram (LEXAPRO) tablet 10 mg, Oral, QDAY rOPINIRole (REQUIP) tablet 0.5 mg, Oral, AT BEDTIME sulfamethoxazole-trimethoprim (BACTRIM DS; SEPTRA DS) 800-160 MG tablet 1 tablet, Oral, MON, WED AND FRI valACYclovir (VALTREX) tablet 500 mg, Oral, BID vancomycin (VANCOCIN) 1,750 mg in 535 mL IVPB, Intravenous, q12h [] gadobutrol (GADAVIST) injection, Intravenous, Contrast - Once [] iopamidol (ISOVUE 370) 76 % contrast, Intravenous, Contrast - Once ?? [] lidocaine PF 0.5% (XYLOCAINE) 0.5 % injection, Infiltration, Once ?? CONTINUOUS MEDICATIONS: PRN MEDICATIONS: LORazepam (ATIVAN) injection 1 mg, Intravenous, AT BEDTIME PRN magnesium sulfate 2 g in 50 mL bolus, Intravenous, PRN ?? oxyCODONE (immediate release) (ROXICODONE) tablet 5 mg, Oral, q4h PRN VITALS: Vitals: 02/28/20 0812 02/28/20 1138 02/29/20 0020 02/29/20 0650 BP: 134/74 129/81 113/67 116/76 Pulse: 74 73 66 73 Resp: 18 18 18 18 Temp: 98.4 ??F 98.4 ??F 98.4 ??F 98.6 ??F SpO2: 94% 94% 94% Weight: 122.4 kg (269 lb 14.4 oz) Height: Wt Readings from Last 3 Encounters: 02/29/20 122.4 kg (269 lb 14.4 oz) 02/26/20 120.2 kg (265 lb) 11/15/19 123.4 kg (272 lb) Date 02/28/20699 - 02/29/20 0659 02/29/20699 - 03/01/20 0659 Shift 8518-6566 8617-5046 24 Hour Total 8992-3636 4119-1897 24 Hour Total INTAKE I.V.(mL/kg/hr) 1409.4(1) 1409.4(0.5) Shift Total(mL/kg) 1409.4(11.5) 1409.4(11.5) OUTPUT Urine(mL/kg/hr) 600(0.4) 600(0.2) Shift Total(mL/kg) 600(4.9) 600(4.9) NET 809.4 809.4 Weight (kg) 120.2 122.4 122.4 122.4 122.4 122.4 PHYSICAL EXAM: General appearance - alert, well appearing, and in no distress Mental status - alert, oriented to person, place, and time, normal mood, behavior, speech, dress, motor activity, and thought processes Chest - clear to auscultation, no wheezes, rales or rhonchi, symmetric air entry Heart - normal rate, regular rhythm, normal S1, S2, no murmurs, rubs, clicks or gallops Abdomen - soft, nontender, nondistended, no masses or organomegaly Neurological - alert, oriented, normal speech, no focal findings or movement disorder noted Musculoskeletal - no joint tenderness, deformity or swelling Extremities - peripheral pulses normal, no pedal edema, no clubbing or cyanosis Skin - Small ecchymosis to right FA, healed incision to upper chest, normal coloration and turgor, no rashes, no suspicious skin lesions noted L. PIV- clean, dry, intact LABS: Recent Labs Component Name 02/29/20 0012 02/27/20 2349 02/27/20 0411 02/25/20 2252 WBC 26.1* 19.0* 7.3 8.5 RBC 3.67* 3.68* 4.15* 4.28* HGB 10.7* 10.7* 11.9* 12.4* HCT 31.1* 31.5* 35.4* 36.4* MCV 84.7 85.6 85.3 85.0 MCH 29.2 29.1 28.7 29.0 MCHC 34.4 34.0 33.6 34.1 PLTCOUNT 440* 444* 402* 464* RDWSD 51.1* 49.8 49.6 48.6 RDW 16.3* 15.9* 16.1* 16.0* MPV 10.5 10.8 10.4 11.4 NRBCABS 0.04* 0.02* 0.00 0.00 NRBCAUTOPCT 0.2* 0.1* 0.0 0.0 NEUTPCT 92.0* 89.2* - 65.2 LYMPHSPCT 3.9* 6.4* - 22.5 MONOPCT 2.5* 3.2 - 9.4 EOSPCT 0.0 0.0 - 1.5 BASOPCT 0.1 0.1 - 0.7 IMMGRANSPCT 1.5* 1.1* - 0.7 NEUTABS 24.0* 17.0* 6.79 5.5 LYMPHS 1.0 1.2 0.44* 1.9 MONO 0.64 0.60 0.07* 0.80* EOS 0.00 0.00 - 0.13 BASO 0.03 0.01 - 0.06 TOTCELLCNT - - 100 - Recent Labs Component Name 02/29/201102/27/20234802/27/20 041 BUN 18 16 12 CREATININE 0.9 0.9 0.8 NA 143 142 140 POTASSIUM 4.2 4.6* 4.5 CL 111* 108* 108* CO2 19* 22 19* CALCIUM 8.6 8.6 8.8 PROT 5.5* 5.7* 6.2 ALB 2.6* 2.6* 2.8* TBILI 0.2 0.1* 0.1* ALKPHOS 89 97 109 ALT 40 29 29 AST 26 22 22 ANIONGAP 17 17 18 BCR 20 18 15 OSMOLALITY 299 298 292 AGRATIO 0.9* 0.8* 0.8* EGFR >60 >60 >60 Recent Labs Component Name 02/29/201102/27/20234802/27/20 0411 MAGNESIUM 1.9 1.8 1.9 Recent Labs Component Name 02/29/201102/27/20234802/27/20 0411 PHOS 3.2 2.7 3.5 Pathology: CD34: pending Infectious Workup Blastomyces: pending Histoplasma blood: pending Histoplasma urine: pending Asperigillus: pending Toxoplasma PCR: pending Bartonella IgG: pending Bartonella IgM: pending Cryptococcus: Negative BC x 2 (02/25/20): NGTD UA with culture (02/25/20): NGTD RVP (02/25/20): ND Covid swab (02/25/20): negative Covid IgG (02/25/20): Negative CXR (02/25/20): pending RADIOLOGY: CT C/A/P (02/26/20): 1. Patchy, peripheral predominant groundglass opacities in [...] acute process identified in the abdomen or pelvis ASSESSMENT/PLAN: JALIL LUIS is a 49 year old male, who is Day +132 (Day 0 is 10/20/19) of an autologous peripheral blood stem cell transplant with a 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 SYSTEMS: Marginal Zone Lymphoma in CR2 pre-transplant Schema: 5A Prep: BEAM, Cell count 10.4 x 10^6 CD34+cells/kg in 5 bags; Planned disease evaluation: day [address] A/P -- still needs day 100 assessment, tentatively scheduled 03/03/20 but could be completed inpatient as well. Will need CD4 count as well. Planned post transplant therapy: none planned at this time -Transfusion threshold: Hgb > 7; Plt > 10; CMV +, transfusion pre meds: none needed -Engraftment: ANC day +9 (10/29/19); plt engraftment 11/03/19 (day +14) OI prophylaxis: Bacterial:??Hold Pen VK d/t starting Cefepime PJP:??Bactrim DS MWF Viral: Valtrex 500mg BID Covid/Persistent Fevers -tested positive early January after girlfriend was tested +, didn't have symptoms for 2 weeks, but now has been consistently febrile for several weeks - Covid negative; covid IgG - negative - IgG - 209 - not replaced at this time d/t headaches - CT C/A/P, results above - Continue cefepime 2g Q8 and Vancomycin -Plan to stop vanc pending LP results. - ID consult, appreciate recs > Would like input on Covid results as well as any additional testing for persistent fevers Headaches - seem to worsen with fevers - ID concern for meningitis > Ppx Valtrex > Dex 10mg Q6h, plan to stop pending LP results - Neuro consult >Unable to get LP at bedside, will plan for IR to do LP today or tomorrow. GGO - Found on CT 02/26/20 -Pulm consulted; appreciate recs -Bronch not necessary at this time Anxiety/Depression - Lexapro 10 mg daily Restless Leg Syndrome - Requip 0.25 mg QHS Right IJ venous clot 09/27/19 - Eliquis 5 mg BID - holding for LP/bronch Discharge Planning: Patients preferred contact information: cell Caregiver: sister, girlfriend Preferred D/C Pharmacy: [facility] Intended lodging: home Referring provider: Cesar Tavares Disposition: Remain on 8N for infectious workup Eli Sood APRN, [employer] OPERATIONS MANAGER-C [facility] Mar[facility] I personally evaluated and examined Mr. Jalil Luis. I confirmed the alfonso elements of of history and physical examination. I also discussed the assessment and plan in detail with the team on rounds and with the patient. I made some modifications to the above note. I fully concur with the above assessment and plan. Ezio Segal MD External Grinder Tender Department of Internal Medicine Division of Hematology Oncology * Flori Mayers RN - 02/28/2020 12:28 PM CDT Problem: Pain/Discomfort Goal: Patient exhibits reduced pain/discomfort as evidenced by pain scores Outcome: Ongoing Goal: Patient uses pharmacological and non-pharmacological pain management strategies. Outcome: Ongoing Goal: Patient verbalizes acceptable level of pain relief and ability to engage in desired activity. Outcome: Ongoing Problem: Fall Risk Goal: Fall risk and fall related injury risk are minimized Outcome: Ongoing Problem: Isolation Goal: Prevent Transmission of Infection Outcome: Ongoing Problem: Isolation Goal: Prevent Transmission of Infection Outcome: Ongoing Problem: Anemia Goal: Patient able to verbalize preventions and signs & symptoms Outcome: Ongoing Problem: Protective Precautions Goal: Patient will remain free of Nosocomial Infections Outcome: Ongoing * Gómez DO Vianey - 02/28/2020 11:31 AM CDT Neurology Progress Note Patient: Jalil Luis Room: 808 Age: [age] year old Subjective: Jalil Luis is a 49 year old male with a hx of marginal zone lymphoma (s/p BMT 10/2019), splenectomy, who is admitted with a chief complaint of fevers and COOPER for the past 2 weeks. Of note, the pt tested positive for COVID in early January. Was admitted on 02/24 for an infectious workup. Overnight: The pt reports that he did not sleep well overnight due to due interruptions/distractions. Reporteda 3/10 COOPER overnight that started at the base of his neck and radiated up to his eyes. Denied any fevers overnight. Waiting on 2nd negative test. Plan for a lumbar puncture today. Objective: BP 134/74 Pulse 74 Temp 98.4 ??F (36.9 ??C) (Oral) Resp 18 Ht 1.702 m (5' 7.01 ) Wt 120.2 kg (265 lb) SpO2 94% BMI 41.49 kg/m2 Temp (30hrs) Max:98.5 ??F (36.9 ??C) Body mass index is 41.49 kg/m??. Exam: General: Con - NAD, afebrile, pleasant and cooperative Heent - NCAT, MMM, anicteric, PERRLA Neck - No JVD, LAD, trachea midline CV - RRR for age, no murmurs Pulm - CTAB, no w/r/r Abd - BS+, soft, NT/ND Ext: Motor and sensation intact in all 4 extremities Labs: Recent Results (from the past 24 hour(s)) FLOW CYTOMETRY T-HELPER CELLS (CD4) COUNT Collection Time: 02/27/20 3:14 PM Result Value Ref Range Reason for test Diffuse large B-cell lymphoma, unspecified body region Client Specimen ID # [id number] Number of Markers 3 Flow Cytometry Results Differential Result Comment WBC Count /uL 19,000 % Lymphocytes 6 Lymphocyte Count u/L 1,140 Cell Region A: Lymphocytes Surface Marker Results % Absolute Count (cells/uL) CD3 88 1,003 CD3+CD4+ 6 68 CD3+CD8+ 81 923 CD4:CD8 Ratio 0.07 Flow Cytometry Interpretation Testing is technical only and does not require an interpretation of results. Reference Range % Adult Normal Reference Range Adult (> 18 years) CD3 54-84 % CD4 33-63 % CD8 12-39 % CD19 5-19 % CD56 6-26 % CD4+CD45RA+ 30-50 % CD4+CD45RO+ 17-42 % CD19+CD27+ 7-48 % CD19+CD27+IgD+ 7-29 % CD19+CD27+IgD- 3-23 % CD19+ST17-IgZ+ 29-93 % Disclaimer Test performed at [facility], [facility] [place], [place], [address]. This test was developed and its performance characteristics determined by the Flow Cytometry Laboratory. It has not been cleared by the [place] Food and Drug Administration (FDA). The FDA has determined that such clearance or approval is not necessary. This test is used for clinical purposes.It should not be regarded as investigational or for research. This laboratory is regulated under the Clinical Laboratory Improvement Amendments of 1998 (CLIA) as a qualified to perform high complexity clinical testing. By law [place], CD4 lymphocyte counts on patients with HIV infection must be reported by the physician to the [facility] Health authority. Embedded Images CBC W AUTO DIFFERENTIAL Collection Time: 02/27/20 11:49 PM Result Value Ref Range WBC 19.0 (H) 3.5 - 10.5 10??3/uL RBC 3.68 (L) 4.30 - 5.70 10??6/uL Hemoglobin 10.7 (L) 13.5 - 17.5 g/dL Hematocrit 31.5 (L) 39.0 - 50.0 % MCV 85.6 81.0 - 97.0 fL MCH 29.1 28.0 - 34.0 pg MCHC 34.0 32.0 - 36.0 g/dL Platelet Count 444 (H) 150 - 400 10??3/uL RDW-SD 49.8 36.0 - 50.0 fL RDW-CV 15.9 (H) 11.2 - 14.8 % MPV 10.8 9.3 - 12.8 fL nRBC Absolute 0.02 (H) 0 10??3/uL nRBC Auto 0.1 (H) 0 /100 WBC Neutrophils % 89.2 (H) 35.0 - 70.0 % Lymphocytes % 6.4 (L) 19.7 - 55.1 % Monocytes % 3.2 3.0 - 15.0 % Eosinophils % 0.0 0.0 - 6.0 % Basophil % 0.1 0.0 - 1.5 % Neutrophils Absolute 17.0 (H) 1.6 - 7.0 10??3/uL Lymphocyte Absolute 1.2 0.8 - 2.9 10??3/uL Monocytes Absolute 0.60 0.14 - 0.66 10??3/uL Eosinophils Absolute 0.00 0.00 - 0.45 10??3/uL Basophils Absolute 0.01 0.00 - 0.06 10??3/uL Immature Granulocytes % 1.1 (H) 0.0 - 1.0 % COMPREHENSIVE METABOLIC PANEL Collection Time: 02/27/20 11:49 PM Result Value Ref Range BUN 16 7 - 26 mg/dL Creatinine 0.9 0.6 - 1.2 mg/dL Sodium 142 136 - 145 mmol/L Potassium 4.6 (H) 3.5 - 4.5 mmol/L Chloride 108 (H) 98 - 107 mmol/L CO2 22 22 - 29 mmol/L Glucose 141 (H) 70 - 115 mg/dL Calcium 8.6 8.4 - 10.2 mg/dL Protein Total 5.7 (L) 6.0 - 8.3 g/dL Albumin 2.6 (L) 3.4 - 5.0 g/dL Bilirubin Total 0.1 (L) 0.2 - 1.2 mg/dL Alkaline Phosphatase 97 40 - 150 Units/L ALT 29 0 - 55 Units/L AST 22 5 - 34 Units/L Anion Gap 17 8 - 18 BUN/Creatinine Ratio 18 7 - 23 Osmolality Calculated 298 270 - 300 mOsm/kg Albumin/Globulin Ratio 0.8 (L) 1.1 - 2.3 eGFR >60 >60 mL/min/1.73 m2 MAGNESIUM BLOOD Collection Time: 02/27/20 11:49 PM Result Value Ref Range Magnesium 1.8 1.6 - 2.6 mg/dL PHOSPHORUS BLOOD Collection Time: 02/27/20 11:49 PM Result Value Ref Range Phosphorus 2.7 2.3 - 4.7 mg/dL PT-INR [facility] Collection Time: 02/27/20 11:49 PM Result Value Ref Range PT 14.2 12.1 - 14.8 Seconds INR 1.1 See Comment VANCOMYCIN LEVEL TROUGH Collection Time: 02/28/20 5:56 AM Result Value Ref Range Vancomycin Trough 17.8 10.0 - 20.0 mcg/mL Assessment and Plan: Jalil Luis is a 49 year old male with a hx of marginal zone lymphoma (s/p BMT 10/2019), splenectomy, who is admitted with a chief complaint of fevers and COOPER for the past 2 weeks. Of note, the pt tested positive for COVID in early January. Was admitted on 02/24 for an infectious workup. Blood cx and UA/urine cx negative to date. RVP negative. CT chest/abd/pelvis with bilateral patchy peripheral lung ground glass opacities concerning for infection. # Persistent fever and headaches - concern for meningitis - no recent fevers however pt continues to having occasional headaches - WBC this AM elevated at 19 - MRI brain revealing no intracranial processes; no meningeal enhancement of metastasis - COVID test negative; pending 2nd negative COVID test - will perform a lumbar puncture after 2nd negative COVID test (eliquis held since 02/25) - will send CSF for cell count, protein, glucose, oligoclonal bands, flow cytometry, herpes family including herpes 7 - continue on broad spectrum Abx with IV cefepime 2g q8h and IV vancomycin # Ground glass opacities - seen on CT chest/abd/pelvis: bilateral patchy peripheral GGO could represent infection - RVP negative - blood cx, urine cx negative - continue on IV cefepime and IV vancomycin - plan for bronchoscopy with BAL this admission Inpatient Checklist: Lines: PIV Prophylaxis: N/A Diet: Regular Activity: Activity as tolerated Code status: Full Code Disposition: Inpatient monitoring Discussed Assessment and Plan with Attending Physician, Dr. Ernesto Magaña Internal Medicine, PGY-2 * Jayson Friedman MD - 02/28/2020 10:48 AM CDT [facility] Progress Note Admitted on: 02/25/2020 9:41 PM Hospital stay: Day 3 Room: 808/808-01 Primary Team: Attending: Shalini Segal MD Reason for ID consultation: recent??COVID-19 positive on 01/07/2020 per patient report, fever over the past 2 weeks. 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 ID is called for consult regarding management of recent positive??COVID- 19 and fever. SUBJECTIVE & INTERVAL HISTORY: Patient seen and examined. He has 1/10 headache. No N&V or vision change. Still some neck stiffness. Some dry cough, mild mid chest pain with deep cough. On room air without SOB. No abdominal pain or diarrhea. Current Abx Cefepime (02/25/20 - ) Iv vancomycin 02/25-?? Valacyclovir?? Prior Abx: Penicillin VK PO ?? Inpatient Medications ??? cefepime 2 g Intravenous q8h ??? dexamethasone 10 mg Intravenous q6h ??? escitalopram 10 mg Oral QDAY ??? gadobutrol Intravenous Contrast - Once ??? iopamidol Intravenous Contrast - Once ??? rOPINIRole 0.5 mg Oral AT BEDTIME ??? sulfamethoxazole-trimethoprim 1 tablet Oral MON, WED AND FRI ??? valACYclovir 500 mg Oral BID ??? vancomycin 1,750 mg Intravenous q12h PRN Medications magnesium sulfate ??? oxyCODONE (immediate release) OBJECTIVE: Vital Signs: BP 134/74 Pulse 74 Temp 98.4 ??F (36.9 ??C) (Oral) Resp 18 Ht 5' 7.01 (1.702 m) Wt 265 lb (120.2 kg) SpO2 94% BMI 41.49 kg/m2 Temp (24hrs), Av.3 ??F (36.8 ??C), Min:98.1 ??F (36.7 ??C), Max:98.5 ??F (36.9 ??C) I/O: Intake/Output Summary (Last 24 hours) at 02/28/2020 1048 Last data filed at 02/27/2020 1830 Gross per 24 hour Intake 725.4 ml Output 900 ml Net -174.6 ml Physical Exam: General: Alert, cooperative Head: Normocephalic and atraumatic Eyes: PERRLA, EOMI, normal conjunctiva, no icterus ENT: Moist mucus membranes, oropharyngeal clear Neck: Supple, no LAD, no JVD, trachea midline Lungs: No use of accessory breathing muscles. CTAB, no wheezes, crackles, rhonchi Heart: RRR, normal S1 and S2, no murmur Abdomen: Soft, non-distended, non-tender, +BS Neurologic: Alert & oriented x 4, no focal deficits Extremities: No clubbing, cyanosis, or edema Skin: Warm and dry, no rashes appreciated Psychiatry: Appropriate mood/affect Lines: PIV LABS CBC: Recent Labs Component Name 02/27/20234802/27/2041002/25/20 2252 WBC 19.0* 7.3 8.5 RBC 3.68* 4.15* 4.28* HGB 10.7* 11.9* 12.4* HCT 31.5* 35.4* 36.4* MCV 85.6 85.3 85.0 BMP: Recent Labs Component Name 02/27/20234802/27/201 02/26/20 0042 NA 142 140 136 CL 108* 108* 102 CO2 22 19* 23 BUN 16 12 11 CREATININE 0.9 0.8 1.0 ALB 2.6* 2.8* 2.7* PROT 5.7* 6.2 5.9* estimated creatinine clearance is 123.2 mL/min (based on SCr of 0.9 mg/dL). LFTs: Recent Labs Component Name 02/27/20234802/27/201 02/26/20 0042 11/15/19 0911 11/11/19 1231 11/04/19 0858 11/01/19 0909 10/30/19 1115 10/29/19 0002 10/28/19 0000 10/27/19 0007 10/26/19 0012 10/25/19 0013 10/24/19 0015 10/23/19 0031 10/22/19 0015 10/20/19 2359 10/20/19 0041 10/19/19 0021 10/17/19 2343 10/17/19 0020 10/16/19 0002 10/15/19 0019 10/13/19 2319 10/13/19 0951 09/30/19 1115 09/09/19 1242 08/26/19 1345 08/19/19 0542 08/18/19 0555 07/26/19 1248 06/28/19 1351 06/09/19 1341 05/24/19 1206 03/22/19 1500 ALKPHOS 97 109 110 102 108 128 124 119 102 95 84 69 72 64 64 73 77 80 82 86 83 90 104 126 137 155* 108 108 68 65 74 63 70 65 125 ALT 29 29 31 22 29 42 47 48 43 54 53 46 56* 68* 77* 103* 122* 117* 137* 76* 70* 40 33 49 46 58* 36 48 35 40 68* 31 30 31 22 AST 22 22 29 15 18 26 25 27 14 18 17 12 12 14 19 23 50* 28 56* 25 29 19 15 21 20 23 20 31 29 31 31 19 22 19 20 MICROBIOLOGY: RESPIRATORY PATHOGEN PANEL BY PCR 02/25/20: Not detected ?? SARS-COV-2 (COVID-19) 02/25/20: in process ?? 02/25/20: COVID-19 Ab IgG: negative ?? 02/26/20: CMV PCR Quant Blood: in process EBV PCR Quant Blood: in process ADENOVIRUS PCR Quant Blood: in process ?? Microbiology: Blood culture 02/25/20: x 2 in process ??02/26/20: x 2 in process Blood AFB culture pending Blood fungal culture pending Urine culture 02/25/20: in process UA: WBC 0-5 Cryptococcal Ag negative 02/25 HISTOPATHOLOGY: None at this admission IMAGING & PROCEDURE: Pertinen images independently reviewed; report in chart. CT chest/abd/pelvis 02/25 1. Patchy, peripheral predominant groundglass opacities in [...] process identified in the abdomen or pelvis. ?? MRI brain 02/25 No evidence of acute intracranial findings. ?? ASSESSMENT & RECOMMENDATIONS: 1. Fever in an autologous peripheral blood stem cell transplant patient and splenectomy: DDx is broad including bacterial, fungal, viral and parasite infection. Important to follow BCx and send fungal and AFB BCx. Associated headache, photophobia, and neck pain are concerning, need to evaluate of ba cterial (Strept pneumoniae, Meningococci, Haemophilus, Listeria, etc), fungal and viral meningitis,and other pathogenic 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 infection. Ground glass opacity in bilateral lungs pm CT C/A/P could 2nd to previous COVID infection. Very less likely 2nd to fungal infection. 2. Headache, associated with photophobia and neck pain: Severe, duration ~2 weeks. 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 MRI brain negative. Improving today with iv antibiotics use over the weekend. Not able to r/o Headache is related to his COVID before. Less likely herpes encephalitis with negative MRI brain. Cryptococcus Ag negative. 3. 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 4. 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 Recent??COVID-19 positive on 01/07/2020 per patient report: Not received any treatment or clinical trial for this). COVID-19 Ab IgG not detected may be related to low immune response secondary to his immunosuppressive condition. 6. Renal function: Estimated Creatinine Clearance: 138.1 mL/min (based on SCr of 0.8 mg/dL). 7. 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 - Continue cefepime and vancomycin ?? -waiting for COVID result before planning for LP. ?? LP tomorrow ?? Follow up with fungal blood culture and AFB blood culture ?? Follow Covid-19 ?? Follow up with Toxoplasma PCR ?? - Follow CBC with manual diff, CMP, and complete urinalysis weekly (at minimum) while on IV antibiotics We will continue to follow and monitor the patient. Primary team: hematology Case was discussed with Dr Damian. >35 minutes spent on the care of this patient. > 50% was spent in counseling and coordinationof care that included the patient and the primay team. Jayson Friedman M.D. Infectious Diseases fellow (Team 1) Pager [phone], cell phone [phone]. You can call or text me for communication. Associated attestation - Joce Damian DO - 02/28/2020 5:24 PM CDT I interviewed and examined the patient and discussed the patient with the team. I reviewed the fellow's note and agree with the findings and assessment and plan except as noted below. Please see the fellow's note. * Adeline Pena - 02/28/2020 10:00 AM CDT Neurology Consult Note Date of Encounter: 02/28/2020 Reason for Consult: Patient is scheduled for an LP today. HPI: Mr. Luis is a 49 year old man admitted on 02/25/20 for a 2 week history of fever and headaches. He has a PMH of marginal zone lymphoma s/p BMT 4 months ago. Surgical history of splenectomy in 08/2019. He also tested positive for COVID-19 in early January, and tested negative upon admission. Neurology team was consulted to perform an LP. Interim history: No significant events overnight. Patient has persistent headaches and was given oxycodone this morning. He is holding off on anticoagulants because he is scheduled for an LP today. This morning the patient complains of a persistent headache, 5/10 pain. He says that his headaches have overall improved since admission. I saw him 40 minutes after he was given oxycodone so he states that he is waiting for the pain medications to kick in. He denies any shortness of breath, blurry vision, or dizziness. He also mentions that he has a dry cough associated with bone pain in the sternum area. Allergies Allergen Reactions ??? Adhesive Sensitivity Urticaria and Other Electrodes -- welps where stickers are Also, use paper tape Home Medications: Current Facility-Administered Medications Medication ??? cefepime (MAXIPIME) 2,000 mg in sterile water (PF) 20 mL syringe ??? dexamethasone (DECADRON) injection 10 mg ??? escitalopram (LEXAPRO) tablet 10 mg ??? gadobutrol (GADAVIST) injection ??? iopamidol (ISOVUE 370) 76 % contrast ??? magnesium sulfate 2 g in 50 mL bolus ??? oxyCODONE (immediate release) (ROXICODONE) tablet 5 mg ??? rOPINIRole (REQUIP) tablet 0.5 mg ??? sulfamethoxazole-trimethoprim (BACTRIM DS; SEPTRA DS) 800-160 MG tablet 1 tablet ??? valACYclovir (VALTREX) tablet 500 mg ??? vancomycin (VANCOCIN) 1,750 mg in 535 mL IVPB PMH: Past Medical History: Diagnosis Date ??? Diverticulosis ??? GERD (gastroesophageal reflux disease) taking prevacid prn ??? H/O echocardiogram 08/11/2019 ??? Lymphoma of lymph nodes ??? Multiple body piercings facial ??? Port-A-Cath in place right subclavian ??? Sleep apnea not using CPAP ??? Transient alteration of awareness 2018 during knee arthroplasty(single incident) Physical Exam: General Well appearing, interactive gentleman. Great historian. HEENT: Head normocephalic and atraumatic Heart: Regular rate and rhythm without murmur Lungs: Clear to auscultation bilaterally Extremities: No cyanosis or edema noted Neuro: Alert and oriented, normal speech. Vitals: 02/27/20 1746 02/28/20 0109 02/28/20 0712 02/28/20 0812 BP: 127/78 121/78 134/74 Pulse: 92 77 74 Resp: 18 18 18 Temp: 98.1 ??F (36.7 ??C) 98.5 ??F (36.9 ??C) 98.4 ??F (36.9 ??C) SpO2: 94% 94% 94% Weight: 265 lb (120.2 kg) Height: 5' 7.01 (1.702 m) Data Review CBC: Recent Labs Component Name 02/27/20 2349 02/27/20 0411 02/25/20 2252 WBC 19.0* 7.3 8.5 HGB 10.7* 11.9* 12.4* BMP: Recent Labs Component Name 02/27/20 2349 02/27/20 0411 02/26/20 0042 NA 142 140 136 CL 108* 108* 102 CO2 22 19* 23 BUN 16 12 11 CREATININE 0.9 0.8 1.0 Recent Labs Component Name 02/27/20 2349 02/27/20 0411 02/26/20 0042 02/25/20 2252 CALCIUM 8.6 8.8 8.6 - PHOS 2.7 3.5 - 2.9 LFT: Recent Labs Component Name 02/27/20 2349 02/27/20 0411 02/26/20 0042 PROT 5.7* 6.2 5.9* ALB 2.6* 2.8* 2.7* ALKPHOS 97 109 110 AST 22 22 29 ALT 29 29 31 Coagulation: Recent Labs Component Name 02/27/209 02/27/20 0411 09/09/19 1242 PT 14.2 16.2* 12.9 INR 1.1 1.3 1.0 Impression and recommendations: # Marginal zone lymphoma, in BMT He is on Day +130 (Day 0 is 10/20/19) of stem cell transplant with a 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 - His day 100 assessment is scheduled for 03/03. # OI prophylaxis - Continue on cefepime, vancomycin, bactrim, and valacyclovir prophylaxis. # Persistent headaches and fevers His fevers have resolved. However his WBC count is significantly elevated at 19.0, concerning for infection. The patient continues to have headaches managed with tylenol and oxycodone prn. Currently he is on droplet precaution because ID was concerned for meningitis. - Continue on antibiotics and antivirals as above. - Pending labs for CMV, EBV, adeno, COVID-19. - LP scheduled for today. Make sure patient is negative for COVID-19 before proceeding with LP. Held Eliquis appropriately. # Ground-glass opacities CT on 02/25 showed GGO concerning for atypical or viral infection. - Patient says that his bronchoscopy with BAL is scheduled for tomorrow. Make sure patient is negative for COVID-19 before proceeding. Assessment and plan discussed with attending Dr. Orozco, Neurology attending. Adeline Pena (MS3) 02/28/2020 10:09 AM * Alecia Aldana RN - 02/28/2020 9:00 AM CDT A Chart Review has been conducted by Case Management. Anticipated level of care at discharge: Home Discharge Plan: Patient admitted for infectious workup. He tested positive for covid in January. He lives with his and sister. He plans on returning home at discharge. He uses no DME and has no HHCat this time. or sister will transport him home at discharge. Basic Needs Assessment (BNA) Score: 8 Anticipated Discharge Date: 03/02/20 PCP: Ran Nuñez MD Per nursing assessments: Independent Transportation (who): Sister or Tying Machine Operator Lumber/Support: [phone] Home/Functional Status: Functional and Cognitive Status Is person deaf or have serious hearing difficulty?: No Is person blind or have serious difficulty seeing?: No Does person have serious difficulty walking/climbing stairs?: No Does person have difficulty dressing/bathing?: No Does person have difficulty doing errands alone?: No Does person have difficulty concentrating/remembering/making decisions?: No ?. Will continue to follow. For any questions or needs please contact: Wrapper Stitcher Name/Phone number: Alecia Aldana RN * Shalini Segal MD - 02/28/2020 7:06 AM CDT Autologous Hematopoietic Stem Cell Daily Note: PATIENT IDENTIFIERS: JALIL LUIS is a 49 year old male who is Day +131 (Day 0 is 3/18/20) of an autologous peripheral blood stem cell transplant with a 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 INTERVAL HISTORY: Doing ok this morning Didn't sleep as well because he was nervous about the LP today Headaches have improved, still present but not as bad the other day. Headache pain is about 4-5/10 and oxy takes it to a 2-3 Reports BARNES, this started about 2-3 weeks ago. Got SOB after walking in his room some Dry cough remains Denies N/V/D and abdominal pain Repeat covid pending No light sensitivity this morning, denies feeling dizzy or lightheaded ROS: A comprehensive review of systems was negative except for: as noted above MEDICATIONS FOR CURRENT ENCOUNTER: SCHEDULED MEDICATIONS: cefepime (MAXIPIME) 2,000 mg in sterile water (PF) 20 mL syringe, Intravenous, q8h dexamethasone (DECADRON) injection 10 mg, Intravenous, q6h escitalopram (LEXAPRO) tablet 10 mg, Oral, QDAY gadobutrol (GADAVIST) injection, Intravenous, Contrast - Once iopamidol (ISOVUE 370) 76 % contrast, Intravenous, Contrast - Once rOPINIRole (REQUIP) tablet 0.5 mg, Oral, AT BEDTIME sulfamethoxazole-trimethoprim (BACTRIM DS; SEPTRA DS) 800-160 MG tablet 1 tablet, Oral, MON, WED AND FRI valACYclovir (VALTREX) tablet 500 mg, Oral, BID ?? vancomycin (VANCOCIN) 1,750 mg in 535 mL IVPB, Intravenous, q12h ?? CONTINUOUS MEDICATIONS: PRN MEDICATIONS: magnesium sulfate 2 g in 50 mL bolus, Intravenous, PRN ?? oxyCODONE (immediate release) (ROXICODONE) tablet 5 mg, Oral, q4h PRN VITALS: Vitals: 02/27/20 0414 02/27/20 0822 02/27/20 1746 02/28/20 0109 BP: 122/79 127/78 121/78 Pulse: 76 92 77 Resp: Temp: 97.7 ??F 98.1 ??F 98.5 ??F SpO2: 97% 94% 94% Weight: 119.4 kg (263 lb 3.2 oz) Height: 1.702 m (5' 7 ) Wt Readings from Last 3 Encounters: 02/27/20 119.4 kg (263 lb 3.2 oz) 02/26/20 120.2 kg (265 lb) 11/15/19 123.4 kg (272 lb) Date 02/27/20699 - 02/28/20 0659 02/28/20699 - 02/29/20 0659 Shift 0640-5416 0236-3469 24 Hour Total 0319-5243 9919-8843 24 Hour Total INTAKE P.O. 900 900 I.V.(mL/kg/hr) 1375.9(1) 1375.9(0.5) Shift Total(mL/kg) 2275.9(19.1) 2275.9(19.1) OUTPUT Urine(mL/kg/hr) 900(0.6) 900(0.3) Shift Total(mL/kg) 900(7.5) 900(7.5) NET 1375.9 1375.9 Weight (kg) 119.4 119.4 119.4 119.4 119.4 119.4 PHYSICAL EXAM: General appearance - alert, well appearing, and in no distress Mental status - alert, oriented to person, place, and time, normal mood, behavior, speech, dress, motor activity, and thought processes Mouth - mucous membranes moist, pharynx normal without lesions Chest - clear to auscultation, no wheezes, rales or rhonchi, symmetric air entry Heart - normal rate, regular rhythm, normal S1, S2, no murmurs, rubs, clicks or gallops Abdomen - soft, nontender, nondistended, no masses or organomegaly Musculoskeletal - no nuchal rigidity no no joint tenderness, deformity or swelling Extremities - peripheral pulses normal, no pedal edema, no clubbing or cyanosis Skin - normal coloration and turgor, no rashes, no suspicious skin lesions noted [id number], no erythema, no drainage LABS: Recent Labs Component Name 02/27/20 2349 02/27/20 0411 02/25/20 2252 11/15/19 0911 WBC 19.0* 7.3 8.5 8.1 RBC 3.68* 4.15* 4.28* 4.09* HGB 10.7* 11.9* 12.4* 11.9* HCT 31.5* 35.4* 36.4* 35.8* MCV 85.6 85.3 85.0 87.5 MCH 29.1 28.7 29.0 29.1 MCHC 34.0 33.6 34.1 33.2 PLTCOUNT 444* 402* 464* 560* RDWSD 49.8 49.6 48.6 61.7* RDW 15.9* 16.1* 16.0* 19.7* MPV 10.8 10.4 11.4 9.7 NRBCABS 0.02* 0.00 0.00 0.02* NRBCAUTOPCT 0.1* 0.0 0.0 0.2* NEUTPCT 89.2* - 65.2 43.7 LYMPHSPCT 6.4* - 22.5 37.8 MONOPCT 3.2 - 9.4 13.0 EOSPCT 0.0 - 1.5 1.1 BASOPCT 0.1 - 0.7 4.0* IMMGRANSPCT 1.1* - 0.7 0.4 NEUTABS 17.0* 6.79 5.5 3.5 LYMPHS 1.2 0.44* 1.9 3.1* MONO 0.60 0.07* 0.80* 1.05* EOS 0.00 - 0.13 0.09 BASO 0.01 - 0.06 0.32* TOTCELLCNT - 100 - - Recent Labs Component Name 02/27/20234802/27/2041002/26/20 0042 BUN 16 12 11 CREATININE 0.9 0.8 1.0 NA 142 140 136 POTASSIUM 4.6* 4.5 3.9 CL 108* 108* 102 CO2 22 19* 23 CALCIUM 8.6 8.8 8.6 PROT 5.7* 6.2 5.9* ALB 2.6* 2.8* 2.7* TBILI 0.1* 0.1* 0.1* ALKPHOS 97 109 110 ALT 29 29 31 AST 22 22 29 ANIONGAP 17 18 15 BCR 18 15 11 OSMOLALITY 298 292 281 AGRATIO 0.8* 0.8* 0.8* EGFR >60 >60 >60 Recent Labs Component Name 02/27/20234802/27/2041002/26/20 0042 MAGNESIUM 1.8 1.9 1.7 Recent Labs Component Name 02/27/20 2349 02/27/20 0411 02/25/20 2252 PHOS 2.7 3.5 2.9 Pathology: CD34: pending Infectious Workup Blastomyces: pending Histoplasma blood: pending Histoplasma urine: pending Asperigillus: pending Toxoplasma PCR: pending Bartonella IgG: pending Bartonella IgM: pending Cryptococcus: Negative BC x 2 (02/25/20): NGTD UA with culture (02/25/20): NGTD RVP (02/25/20): ND Covid swab (02/25/20): negative Covid IgG (02/25/20): Negative CXR (02/25/20): pending RADIOLOGY: CT C/A/P (02/26/20): 1. Patchy, peripheral predominant groundglass opacities in [...] acute process identified in the abdomen or pelvis ASSESSMENT/PLAN: JALIL LUIS is a 49 year old male, who is Day +131 (Day 0 is 10/20/19) of an autologous peripheral blood stem cell transplant with a 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 SYSTEMS: Marginal Zone Lymphoma in CR2 pre-transplant Schema: 5A Prep: BEAM, Cell count 10.4 x 10^6 CD34+cells/kg in 5 bags; Planned disease evaluation: day [address] A/P -- still needs day 100 assessment, tentatively scheduled 03/03/20 but could be completed inpatient as well. Will need CD4 count as well. Planned post transplant therapy: none planned at this time -Transfusion threshold: Hgb > 7; Plt > 10; CMV +, transfusion pre meds: none needed -Engraftment: ANC day +9 (10/29/19); plt engraftment 11/03/19 (day +14) OI prophylaxis: Bacterial:??Hold Pen VK d/t starting Cefepime PJP:??Bactrim DS MWF Viral: Valtrex 500mg BID Covid/Persistent Fevers -tested positive early January after girlfriend was tested +, didn't have symptoms for 2 weeks, but now has been consistently febrile for several weeks - Covid negative; covid IgG - negative - IgG - 209 - not replaced at this time d/t headaches - CT C/A/P, results above - Continue cefepime 2g Q8 and Vancomycin - ID consult, appreciate recs > Would like input on Covid results as well as any additional testing for persistent fevers Headaches - seem to worsen with fevers - ID concern for meningitis > Continue Cefe/Vanc > Ppx Valtrex > Dex 10mg Q6h until LP results - Neuro consult > Plan for LP - unable to do until repeat COVID test negative GGO - Found on CT 02/26/20 -Bronch possible but unlikely to be needed at this time Anxiety/Depression - Lexapro 10 mg daily Restless Leg Syndrome - Requip 0.25 mg QHS Right IJ venous clot 09/27/19 - Eliquis 5 mg BID - holding for LP/bronch Discharge Planning: Patients preferred contact information: cell Caregiver: sister, girlfriend Preferred D/C Pharmacy: [facility] lodging: home Referring provider: Cesar Tavares Disposition: Remain on 8N for infectious workup Eli Sood APRN, TALENT ACQUISITION OPERATIONS MANAGER-C Bone Marrow Transplant [facility] Discontinue dexa today ID re consult LP Possible bronch Continue cefepime, Vanco Discuss with ID I personally evaluated and examined Mr. Jalil Luis. I confirmed the alfonso elements of of history and physical examination. I also discussed the assessment and plan in detail with the team on rounds and with the patient. I made some modifications to the above note. I fully concur with the above assessment and plan. Ezio Segal MD External Grinder Tender Department of Internal Medicine Division of Hematology Oncology * Radha Saeed RN - 02/27/2020 7:38 PM CDT Problem: Pain/Discomfort Goal: Patient exhibits reduced pain/discomfort as evidenced by pain scores Outcome: Ongoing Problem: Pain/Discomfort Goal: Patient uses pharmacological and non-pharmacological pain management strategies. Outcome: Ongoing Problem: Pain/Discomfort Goal: Patient verbalizes acceptable level of pain relief and ability to engage in desired activity. Outcome: Ongoing Problem: Isolation Goal: Prevent Transmission of Infection Outcome: Ongoing Problem: Isolation Goal: Prevent Transmission of Infection Outcome: Ongoing Problem: Anemia Goal: Patient able to verbalize preventions and signs & symptoms Outcome: Ongoing Problem: Protective Precautions Goal: Patient will remain free of Nosocomial Infections Outcome: Ongoing * Oneil Pang MD - 02/27/2020 1:07 PM CDT Neurology Plan of Care 49 year old gentleman with PMH of NHL s/p BMT 4 months ago. Recovering from COVID-19 presented withfever and headache for last 2 weeks. Headache 10/10 on presentation. Now at 4/10. Relieved by tylenol. No neck rigidity. MRI brain not concerning for meningeal or leptomeningeal enhancement. Plan: - Agree with LP. Unable to perform today as patient took Apixaban last night - LP tomorrow 02/27 - Continue Valacyclovir prophylactic dosing for now - Hold all anticoagulation for LP tomorrow - PT/INR, platelets in AM - F/u brain MRI final read - LP labs; cell count, protein, glucose, oligoclonal bands, herpes family including herpes 7, flow cytometry - Neurology will continue to follow Patient seen and discussed with Dr. Benton, Neurology attending Ezio Pang MD PGY-2 Neurology * Annika Baldwin RN - 02/27/2020 8:24 AM CDT Problem: Pain/Discomfort Goal: Patient exhibits reduced pain/discomfort as evidenced by pain scores Outcome: Ongoing Goal: Patient uses pharmacological and non-pharmacological pain management strategies. Outcome: Ongoing Problem: Fall Risk Goal: Fall risk and fall related injury risk are minimized Outcome: Ongoing Problem: Isolation Goal: Prevent Transmission of Infection Outcome: Ongoing Problem: Isolation Goal: Prevent Transmission of Infection Outcome: Ongoing * Bill Ferrera MD - 02/27/2020 7:34 AM CDT Autologous Hematopoietic Stem Cell Daily Note: PATIENT IDENTIFIERS: JALIL LUIS is a 49 year old male who is Day +130 (Day 0 is 10/20/19) of an autologous peripheral blood stem cell transplant with a 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 INTERVAL HISTORY: - Yesterday afternoon/evening patient had a fever of 101 and a 10/10 COOPER - Patient states the COOPER started in the upper part of spine/neck and went up around around to the front of his head - C/o light sensitivity this morning and a COOPER of 5/10 - Denies blurry vision, double vision - A&Ox4 - Continues to have BARNES but no SOB at rest - Neurology was in to see him again this morning and we will likely try to get LP today after staffing with attending but said to hold off on treatment dose Acyclovir until we hear from them - Remains on Cefe and Vanc and ppx Valtrex po - Started on Dex 10mg Q6h yesterday - Denies dizziness or lightheadedness - Denies N/V/D - Covid swab and antibody testing both negative - Infectious labs still pending ROS: A comprehensive review of systems was negative except for: as noted above MEDICATIONS FOR CURRENT ENCOUNTER: SCHEDULED MEDICATIONS: cefepime (MAXIPIME) 2,000 mg in sterile water (PF) 20 mL syringe, Intravenous, q8h dexamethasone (DECADRON) injection 10 mg, Intravenous, q6h escitalopram (LEXAPRO) tablet 10 mg, Oral, QDAY gadobutrol (GADAVIST) injection, Intravenous, Contrast - Once iopamidol (ISOVUE 370) 76 % contrast, Intravenous, Contrast - Once rOPINIRole (REQUIP) tablet 0.5 mg, Oral, AT BEDTIME sulfamethoxazole-trimethoprim (BACTRIM DS; SEPTRA DS) 800-160 MG tablet 1 tablet, Oral, MON, WED AND FRI valACYclovir (VALTREX) tablet 500 mg, Oral, BID vancomycin (VANCOCIN) 1,750 mg in 535 mL IVPB, Intravenous, q12h [COMPLETED] 0.9% NaCl IV Bolus, Intravenous, Once ?? [COMPLETED] LORazepam (ATIVAN) injection 1 mg, Intravenous, Once ?? CONTINUOUS MEDICATIONS: PRN MEDICATIONS: And acetaminophen (TYLENOL) tablet 650 mg, Oral, q4h PRN magnesium sulfate 2 g in 50 mL bolus, Intravenous, PRN oxyCODONE (immediate release) (ROXICODONE) tablet 5 mg, Oral, q4h PRN potassium chloride 40 mEq in 0.9% NaCl 270 mL bolus, Intravenous, PRN ?? potassium phosphate 30 mmol in dextrose 5 % 260 mL bolus, Intravenous, PRN VITALS: Vitals: 02/26/20 0728 02/26/20 1606 02/26/20 2229 02/27/20 0414 BP: 126/83 135/82 114/73 Pulse: 92 105 95 Resp: 18 18 18 Temp: 98 ??F (!) 101 ??F 97.9 ??F SpO2: 96% 100% 94% Weight: 119.4 kg (263 lb 3.2 oz) Height: 1.702 m (5' 7 ) Wt Readings from Last 3 Encounters: 02/27/20 119.4 kg (263 lb 3.2 oz) 02/26/20 120.2 kg (265 lb) 11/15/19 123.4 kg (272 lb) Date 02/26/20699 - 02/27/20 0659 02/27/20699 - 02/28/20 0659 Shift 0224-6859 7167-0772 24 Hour Total 9982-2560 7155-6587 24 Hour Total INTAKE P.O. 480 480 I.V.(mL/kg/hr) 20(0) 20(0) Shift Total(mL/kg) 480(4) 20(0.2) 500(4.2) OUTPUT Shift Total(mL/kg) NET 480 20 500 Weight (kg) 120.2 119.4 119.4 119.4 119.4 119.4 PHYSICAL EXAM: General appearance - alert, well appearing, and in no distress Eyes - PERRLA, light sensitivity Chest - clear to auscultation, no wheezes, rales or rhonchi, symmetric air entry Heart - normal rate and regular rhythm, S1 and S2 normal Abdomen - soft, nontender, nondistended, bowel sounds normal Neurological - alert, oriented, normal speech, no focal findings or movement disorder noted, no meningismus, Extremities - peripheral pulses normal, no pedal edema, no clubbing or cyanosis Skin - normal coloration and turgor, no rashes, no suspicious skin lesions noted LABS: Recent Labs Component Name 02/27/2041002/25/20 2252 11/15/19 0911 11/11/19 1231 WBC 7.3 8.5 8.1 6.7 RBC 4.15* 4.28* 4.09* 4.02* HGB 11.9* 12.4* 11.9* 11.5* HCT 35.4* 36.4* 35.8* 35.1* MCV 85.3 85.0 87.5 87.3 MCH 28.7 29.0 29.1 28.6 MCHC 33.6 34.1 33.2 32.8 PLTCOUNT 402* 464* 560* 632* RDWSD 49.6 48.6 61.7* 58.2* RDW 16.1* 16.0* 19.7* 18.9* MPV 10.4 11.4 9.7 9.7 NRBCABS 0.00 0.00 0.02* 0.06* NRBCAUTOPCT 0.0 0.0 0.2* 0.9* NEUTPCT - 65.2 43.7 38.5 LYMPHSPCT - 22.5 37.8 44.0 MONOPCT - 9.4 13.0 13.2 EOSPCT - 1.5 1.1 0.1 BASOPCT - 0.7 4.0* 3.9* IMMGRANSPCT - 0.7 0.4 0.3 NEUTABS 6.79 5.5 3.5 2.6 LYMPHS 0.44* 1.9 3.1* 2.9 MONO 0.07* 0.80* 1.05* 0.88* EOS - 0.13 0.09 0.01 BASO - 0.06 0.32* 0.26* TOTCELLCNT 100 - - - Recent Labs Component Name 02/27/2041002/26/20 0042 11/15/19 0911 BUN 12 11 13 CREATININE 0.8 1.0 0.9 NA 140 136 140 POTASSIUM 4.5 3.9 4.2 CL 108* 102 109* CO2 19* 23 18* CALCIUM 8.8 8.6 9.6 PROT 6.2 5.9* 6.4 ALB 2.8* 2.7* 3.7 TBILI 0.1* 0.1* 0.1* ALKPHOS 109 110 102 ALT 29 31 22 AST 22 29 15 ANIONGAP 18 15 17 BCR 15 11 14 OSMOLALITY 292 281 290 AGRATIO 0.8* 0.8* 1.4 EGFR >60 >60 >60 Recent Labs Component Name 02/27/20 0411 02/26/20 0042 11/15/19 0911 MAGNESIUM 1.9 1.7 1.8 Recent Labs Component Name 02/27/20 0411 02/25/20 2252 11/15/19 0911 PHOS 3.5 2.9 2.8 Pathology: CD34: pending Infectious Workup Blastomyces: pending Histoplasma blood: pending Histoplasma urine: pending Asperigillus: pending Toxoplasma PCR: pending Bartonella IgG: pending Bartonella IgM: pending Cryptococcus: Negative BC x 2 (02/25/20): pending UA with culture (02/25/20): pending RVP (02/25/20): ND Covid swab (02/25/20): pending Covid IgG (02/25/20): Negative CXR (02/25/20): pending RADIOLOGY: CT C/A/P (02/26/20): 1. Patchy, peripheral predominant groundglass opacities in [...] acute process identified in the abdomen or pelvis ASSESSMENT/PLAN: JALIL LUIS is a 49 year old male, who is Day +130 (Day 0 is 10/20/19) of an autologous peripheral blood stem cell transplant with a 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 SYSTEMS: Marginal Zone Lymphoma in CR2 pre-transplant Schema: 5A Prep: BEAM, Cell count 10.4 x 10^6 CD34+cells/kg in 5 bags; Planned disease evaluation: day [address] A/P -- still needs day 100 assessment, tentatively scheduled 03/03/20 but could be completed inpatient as well. Will need CD4 count as well. Planned post transplant therapy: none planned at this time -Transfusion threshold: Hgb > 7; Plt > 10; CMV +, transfusion pre meds: none needed -Engraftment: ANC day +9 (10/29/19); plt engraftment 11/03/19 (day +14) OI prophylaxis: Bacterial:??Hold Pen VK d/t starting Cefepime PJP:??Bactrim DS MWF Viral: Valtrex 500mg BID Covid/Persistent Fevers -tested positive early January after girlfriend was tested +, didn't have symptoms for 2 weeks, but now has been consistently febrile for several weeks - Covid negative; covid IgG - negative - IgG - 209 - not replaced at this time d/t headaches - Follow blood culture, urine culture, CXR - CT C/A/P with contrast - ordered - Continue cefepime 2g Q8 - Continue Vancomycin - ID consult, appreciate recs > Would like input on Covid results as well as any additional testing for persistent fevers - CMV, EBV, Adeno - pending Headaches - seem to worsen with fevers - ID concern for meningitis > Continue Cefe/Vanc > Ppx Valtrex > Dex 10mg Q6h - Neuro consult > Plan for LP - could not do today d/t last Eliquis administration on 02/26/20 2100 GGO - Found on CT 02/26/20 - Spoke to pulmonary they would like to repeat Covid testing today before considering bronch this week - Likely will need bronch with BAL Anxiety/Depression - Lexapro 10 mg daily Restless Leg Syndrome - Requip 0.25 mg QHS Right IJ venous clot 09/27/19 - Eliquis 5 mg BID - holding for LP/bronch Discharge Planning: Patients preferred contact information: cell Caregiver: sister, girlfriend Preferred D/C Pharmacy: [facility] Intended lodging: home Referring provider: Cesar Tavares Disposition: Remain on 8N for infectious workup Katia Roque, TALENT ACQUISITION OPERATIONS MANAGER- Bone Marrow Transplant Clinic [facility] Day +130 autoSCT for MZL The patient has no localizing symptoms of infection other than intermittent COOPER He has no confusion or meningismus, doubt bacterial meningitis but we consulted ID MRI prelim read wnl Continue vanc/cefe for now Needs to remain on appropriate meningitis precautions for now COVID PCR neg, antibody negative in spite of prior PCR pos, but this is confounded By hypogamm Stop eliquis Consult pulm given bilateral infiltrates Would like LP and bronch w BAL Friday once eliquis effect has worn off ?? I saw Jalil Luis with Katia Roque PROVISIONING ANALYST, examined him, reviewed the note, and participated in all of the medical decisions. ?? Bill Ferrera M.D. Director, Blood and Marrow Transplantation Nailing Machine Operator [employer], Department of Internal Medicine [facility] * Radha Saeed RN - 02/26/2020 8:17 PM CDT Problem: Pain/Discomfort Goal: Patient exhibits reduced pain/discomfort as evidenced by pain scores Outcome: Ongoing Problem: Pain/Discomfort Goal: Patient uses pharmacological and non-pharmacological pain management strategies. Outcome: Ongoing Problem: Pain/Discomfort Goal: Patient verbalizes acceptable level of pain relief and ability to engage in desired activity. Outcome: Ongoing Problem: Fall Risk Goal: Fall risk and fall related injury risk are minimized Outcome: Ongoing Problem: Isolation Goal: Prevent Transmission of Infection Outcome: Ongoing Problem: Anemia Goal: Patient able to verbalize preventions and signs & symptoms Outcome: Ongoing Problem: Protective Precautions Goal: Patient will remain free of Nosocomial Infections Outcome: Ongoing * Bill Ferrera MD - 02/26/2020 4:34 PM CDT After reviewing this patients case thoroughly and noting confirmation of a negative COVID test result on 02/25/20, the BMT team has determined that this patient is appropriate to be removed from COVIDisolation. This case was reviewed with and the ultimate decision was made by Dr. Ferrera. Will keep on contact and droplet to r/o meningitis Monica Latif APRN, TALENT ACQUISITION OPERATIONS MANAGER-[facility] Bone Marrow Transplant [phone] Bill Ferrera M.D. Director, Blood and Marrow Transplantation Nailing Machine Operator [employer], Department of Internal Medicine [facility] * Annika Baldwin RN - 02/26/2020 12:21 PM CDT Problem: Pain/Discomfort Goal: Patient exhibits reduced pain/discomfort as evidenced by pain scores Outcome: Ongoing Problem: Fall Risk Goal: Fall risk and fall related injury risk are minimized Outcome: Ongoing Problem: Isolation Goal: Prevent Transmission of Infection Outcome: Ongoing * Bill Ferrera MD - 02/26/2020 7:03 AM CDT Autologous Hematopoietic Stem Cell Daily Note: PATIENT IDENTIFIERS: JALIL LUIS is a 49 year old male who is Day +129 (Day 0 is 10/20/19) of an autologous peripheral blood stem cell transplant with a 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 INTERVAL HISTORY: Aurelio is awake and resting in bed Reports feeling good this morning He feels worse in the evenings Each evening he gets really hot all over his body usually develops a fever and a headache, takes Tylenol and uses cold washcloth on his head until he doesn't feel hot anymore. Sometimes feels dizzy and lightheaded during this time but not every time Reports during the day he takes around the clock Tylenol Q4h BARNES but no SOB at rest, no pain on deep inspiration Denies other URI symptoms such as cough, runny nose, congestion, etc. [place] that warm feeling overnight last night but did not have a fever At home says the highest it has gotten is 103 but the last week has been around 101-102 These fevers have been ongoing for the last 2-3 weeks Tested positive for COVID 6 weeks ago but was asymptomatic - 2 family members including his were hospitalized around that time He does not feel everything going on is COVID Discussed that we are waiting for the COVID to result but the antibody test was negative so unclearat this time if the transplant is not allowing him to mount an immune response but we will wait forthe swab to come back and determine plan moving forward Infectious workup (blood, urine, cxr) pending ROS: A comprehensive review of systems was negative except for: as noted above MEDICATIONS FOR CURRENT ENCOUNTER: ?? SCHEDULED MEDICATIONS: ?? apixaban (ELIQUIS) tablet 5 mg, Oral, BID ?? cefepime (MAXIPIME) 2,000 mg in sterile water (PF) 20 mL syringe, Intravenous, q8h ?? escitalopram (LEXAPRO) tablet 10 mg, Oral, QDAY ?? penicillin v potassium (VEETIDS) tablet 250 mg, Oral, q12h ?? rOPINIRole (REQUIP) tablet 0.5 mg, Oral, AT BEDTIME ?? sulfamethoxazole-trimethoprim (BACTRIM DS; SEPTRA DS) 800-160 MG tablet 1 tablet, Oral, MON, FRIAND FRI ?? valACYclovir (VALTREX) tablet 500 mg, Oral, BID ?? CONTINUOUS MEDICATIONS: ?? PRN MEDICATIONS: ?? And ?? magnesium sulfate 2 g in 50 mL bolus, Intravenous, PRN ?? potassium chloride 40 mEq in 0.9% NaCl 270 mL bolus, Intravenous, PRN ?? potassium phosphate 30 mmol in dextrose 5 % 260 mL bolus, Intravenous, PRN VITALS: Vitals: 02/25/20 2251 02/25/20 2356 02/26/20 0120 BP: 127/93 Pulse: 98 Resp: 18 Temp: 97.8 ??F 99.6 ??F SpO2: 97% Weight: 120.2 kg (265 lb) Height: 1.702 m (5' 7 ) Wt Readings from Last 3 Encounters: 02/25/20 120.2 kg (265 lb) 11/15/19 123.4 kg (272 lb) 11/11/19 121.7 kg (268 lb 6.4 oz) Date 02/25/20699 - 02/26/20 0602/26/20699 - 02/27/20 0659 Shift 7213-8924 9971-8584 24 Hour Total 8890-3893 3590-6796 24 Hour Total INTAKE Shift Total(mL/kg) OUTPUT Urine 250(0.2) 250(0.1) Shift Total(mL/kg) 250(2.1) 250(2.1) NET -250 -250 Weight (kg) 120.2 120.2 120.2 120.2 120.2 PHYSICAL EXAM: General appearance - alert, well appearing, and in no distress Mouth - mucous membranes moist, pharynx normal without lesions Chest - clear to auscultation, no wheezes, rales or rhonchi, symmetric air entry Heart - normal rate and regular rhythm, S1 and S2 normal Abdomen - soft, nontender, nondistended, bowel sounds normal Extremities - peripheral pulses normal, no pedal edema, no clubbing or cyanosis Skin - normal coloration and turgor, no rashes, no suspicious skin lesions noted LABS: Recent Labs Component Name 02/25/20 2252 11/15/19 0911 11/11/19 1231 11/04/19 0858 WBC 8.5 8.1 6.7 8.1 RBC 4.28* 4.09* 4.02* 3.92* HGB 12.4* 11.9* 11.5* 11.2* HCT 36.4* 35.8* 35.1* 33.6* MCV 85.0 87.5 87.3 85.7 MCH 29.0 29.1 28.6 28.6 MCHC 34.1 33.2 32.8 33.3 PLTCOUNT 464* 560* 632* 309 RDWSD 48.6 61.7* 58.2* 50.7* RDW 16.0* 19.7* 18.9* 17.8* MPV 11.4 9.7 9.7 11.2 NRBCABS 0.00 0.02* 0.06* 3.04* NRBCAUTOPCT 0.0 0.2* 0.9* 37.4* NEUTPCT 65.2 43.7 38.5 - LYMPHSPCT 22.5 37.8 44.0 - MONOPCT 9.4 13.0 13.2 - EOSPCT 1.5 1.1 0.1 - BASOPCT 0.7 4.0* 3.9* - IMMGRANSPCT 0.7 0.4 0.3 - NEUTABS 5.5 3.5 2.6 4.37 LYMPHS 1.9 3.1* 2.9 1.38 MONO 0.80* 1.05* 0.88* 2.03* EOS 0.13 0.09 0.01 - BASO 0.06 0.32* 0.26* 0.08* TOTCELLCNT - - - 100 Recent Labs Component Name 02/26/20 0042 11/15/19 0911 11/11/19 1231 BUN 11 13 11 CREATININE 1.0 0.9 1.0 NA 136 140 142 POTASSIUM 3.9 4.2 4.2 CL 102 109* 106 CO2 23 18* 23 CALCIUM 8.6 9.6 9.2 PROT 5.9* 6.4 6.3 ALB 2.7* 3.7 3.6 TBILI 0.1* 0.1* 0.1* ALKPHOS 110 102 108 ALT 31 22 29 AST 29 15 18 ANIONGAP 15 17 17 BCR 11 14 11 OSMOLALITY 281 290 293 AGRATIO 0.8* 1.4 1.3 EGFR >60 >60 >60 Recent Labs Component Name 02/26/20 0042 11/15/19 0911 11/11/19 1231 MAGNESIUM 1.7 1.8 1.8 Recent Labs Component Name 02/25/20 2252 11/15/19 0911 11/11/19 1231 PHOS 2.9 2.8 3.5 Infectious Workup BC x 2 (02/25/20): pending UA with culture (02/25/20): pending RVP (02/25/20): ND Covid swab (02/25/20): pending Covid IgG (02/25/20): Negative CXR (02/25/20): pending ASSESSMENT/PLAN: JALIL LUIS is a 49 year old male, who is Day +129 (Day 0 is 10/20/19) of an autologous peripheral blood stem cell transplant with a 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 SYSTEMS: Marginal Zone Lymphoma in CR2 pre-transplant Schema: 5A Prep: BEAM, Cell count 10.4 x 10^6 CD34+cells/kg in 5 bags; Planned disease evaluation: day [address] A/P -- still needs day 100 assessment, tentatively scheduled 03/03/20 but could be completed inpatient as well. Will need CD4 count as well. Planned post transplant therapy: none planned at this time -Transfusion threshold: Hgb > 7; Plt > 10; CMV +, transfusion pre meds: none needed -Engraftment: ANC day +9 (10/29/19); plt engraftment 11/03/19 (day +14) OI prophylaxis: Bacterial:??Hold Pen VK d/t starting Cefepime but resume at discharge d/t splenectomy PJP:??Bactrim DS MWF Viral: Valtrex 500mg BID Covid/Persistent Fevers -tested positive early January after girlfriend was tested +, didn't have symptoms for 2 weeks, but now has been consistently febrile for several weeks -discussed case with Dr. Sanchez - Repeat Covid swab - pending; covid IgG - negative - IgG - pending - Follow blood culture, urine culture, CXR - CT C/A/P with contrast - ordered - Continue cefepime 2g Q8 - ID consult, appreciate recs > Would like input on Covid results as well as any additional testing for persistent fevers - CMV, EBV, Adeno - pending Anxiety/Depression - Lexapro 10 mg daily Restless Leg Syndrome - Requip 0.25 mg QHS Right IJ venous clot 09/27/19 - Eliquis 5 mg BID Discharge Planning: Patients preferred contact information: cell Caregiver: sister, girlfriend Preferred D/C Pharmacy: [facility] Intended lodging: home Referring provider: Cesar Tavares Disposition: Remain on 8N for infectious workup Katia Roque, MISSY- Bone Marrow Transplant Clinic [facility] Day +129 autoSCT for MZL The patient has no localizing symptoms of infection other than intermittent COOPER He has no confusion or meningismus, doubt bacterial meningitis but we consulted With ID and the recommendation is to proceed with MRI brain CT C/A/P and LP With starting empiric vanc Needs to remain on appropriate meningitis precautions for now COVID PCR neg, antibody negative in spite of prior PCR pos, but this is confounded By hypogamm Send adeno EBV CMV PCRs and any other workup recommended by ID Consult neurology I reviewed Jalil [place] Luis case with Katia Roque PROVISIONING ANALYST due to covid countermeasures, reviewed the note, and participated in all of the medical decisions. Bill Ferrera M.D. Director, Blood and Marrow Transplantation Nailing Machine Operator Automatic, Department of Internal Medicine [facility] * Rylee Coreas RN - 02/25/2020 10:13 PM CDT Problem: Fall Risk Goal: Fall risk and fall related injury risk are minimized Outcome: Ongoing Problem: Isolation Goal: Prevent Transmission of Infection Outcome: Ongoing * Rylee Coreas RN - 02/25/2020 8:57 PM CDT Pt called and notified that room is ready. States he is on his way now. documented in this encounter H&P Notes * Joe Dennison MD - 03/06/2020 3:04 PM CDT H&P Note Admit Date: 02/25/2020 Length of Stay 10 Day(s) Room 816 Jalil Mansfield [facility] 1970 [id number] CrCl: Estimated Creatinine Clearance: 123.7 mL/min (based on SCr of 0.9 mg/dL). IBW: [place] body weight: 66.1 kg (145 lb 12.2 oz) Adjusted ideal body weight: 88.2 kg (194 lb 5.4 oz) HPI: 49 year oldmale [facility] 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 Recent SARS-CoV-2 (+) in the beginning of January as a routine check up. Progressively short of breath and fever 2-3 weeks later and admitted to the hospital 02/24 with complaints of low grade fevers, moderate to severe headache, photophobia, and neck pain x2 weeks. LP on 03/01 with negative findings. On March 04, febrile >102, transitioned to HFNC 40L CT chest noted worsening GGO s/p vanc, cefepime. Patient underwent bronchoscopy with BAL, brushing, transbronchial biopsy, sent bacterial, fungal, viral, PJP, COVID 19, cell counts, cytology. Started on prednisone per BMT service. Patient was intubated in the bronch suite an transferred to the MICU. FH: unable to obtain SH: unable to obtain Past Medical History: Diagnosis Date ??? Diverticulosis [...] ACL RECONSTRUCTION ??? BONE MARROW BIOPSY ??? COLONOSCOPY WITH POLYPECTOMY ??? Knee Arthroscopy Right 2018 with hardware ??? Splenectomy N/A 08/17/2019 N/A; LAPAROSCOPIC SPLENECTOMY POSS OPEN ??? Tonsillectomy ??? VENOUS ACCESS DEVICE (PORT OR CATHETER) Right 2019 subclavian Allergies Allergen Reactions ??? Adhesive Sensitivity Urticaria and Other Electrodes -- welps where stickers are Also, use paper tape Home medications reviewed and reconciled in [facility]. Review of Systems: Intubated. Objective: Vitals: 03/05/20 2336 03/06/20 0330 03/06/20 0838 03/06/20 1204 BP: 117/72 124/54 132/81 Pulse: 86 74 69 95 Resp: 16 Temp: 98.8 ??F (37.1 ??C) 98.5 ??F (36.9 ??C) (!) 101.6 ??F (38.7 ??C) SpO2: 94% 93% 92% 92% Weight: Height: Intake/Output Summary (Last 24 hours) at 03/06/2020 1504 Last data filed at 03/06/2020 1500 Gross per 24 hour Intake 2879.39 ml Output 4100 ml Net -1220.61 ml GEN: NAD, intubated. HEENT: nonicteric, PERRLA, EOMI CV: RRR, normal JVD supine, no murmurs PULM: CTAB, no retractions, no w/c/r ABD: NTND soft without masses MSK: no peripheral edema BRYSON: intubated/sedated. SKIN: no rashes Labs: CBC: Recent Labs Lab 03/05/20 2353 WBC 16.7* HGB 9.8* HCT 28.4* MCV 83.8 PLTCOUNT 266 BMP: Recent Labs Lab 03/05/20 2353 NA 138 POTASSIUM 3.8 CL 104 CO2 22 BUN 15 CREATININE 0.9 CALCIUM 8.1* CMP: Recent Labs Lab 03/05/20 2353 AST 47* ALT 93* TBILI 0.3 ALKPHOS 81 ALB 1.9* PROT 5.2* Ventilator Settings: MAP 93. IMG: All pertinent imaging reviewed in [facility] MICRO: All pertinent micro results reviewed in [facility] Assessment and Plan Active Problems: Fever Status post autologous bone marrow transplant NEURO #Sedation Titrate propofol to RASS 0 to -1. With PRN pushes of fentanyl. PULM #AHRF #Hx of COVID (+) #B/l pulmonary infiltrates DDx: Infection, inflammation, medication induced pneumonitis. Has been COVID negative x4 (2 normal, 2 IgG) Already on prednisone for concern for inflammatory component/pneumonitis. Infectious workup has been negative thus far, but has been started on broad spectrum Abx. Given increased oxygen requirements was intubated. Transplant ID on board to help guide management. Plan: - Abx: Vanc/Cem - Continue pred 90 per BMT, started on 03/05. - SARS COVID sent today s/p bronch - f/u bacterial, fungal, viral, PJP, COVID 19, cell counts, cytology. #OI PPx Bacterial held in setting of concerns for septicemia - PJP: Bactrim DS MWF - Viral: Valtrex 500mg BID CV JUSTIN GI JUSTIN RENAL Strict I/O. Monitor UOP. Keep K+3.5-4.0 meq,Mg~2.0 mg/dl,Po4-3.0-4.0 mmol/l ENDO JUSTIN ID #Fevers No obvious source, hx of COVID positive, but cannot rule out other respiratory etiologies, currently on broad spectrum ABx, with bacterial, viral prophylaxis as well. - Abx as above. 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 BMT on board to help guide management. Plan: - prednisone 90mg per BMT. #Hx of RIJ clot - home eliquis held, on lovenox 120mg BID. Prophylaxis: Pantoprazole, lovenox 120mg Diet: Diet orders this encounter Procedures ??? DIET NPO Except: SIPS WITH MEDS Code status: Full Disposition: ABA Dennison MD 03/06/2020 3:04 PM * Bill Ferrera MD - 02/25/2020 3:30 PM CDT Autologous Hematopoietic Stem Cell Daily Note: PATIENT IDENTIFIERS: JALIL LUIS is a 49 year old male who is Day +128 (Day 0 is 10/20/19) of an autologous peripheral blood stem cell transplant with a 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 INTERVAL HISTORY: Aurelio admits to hospital for infectious workup He was released from BMT at day 30 following autologous stem cell transplant, when called for day 100 testing, he notified team that he had tested positive for Covid early January. He was asymptomatic at diagnosis, but spouse was positive and give immunocompromised state he was swabbed. His testing was delayed to ensure 28 days since test was negative prior to coming to clinic. Two weeks later he started to have low grade fevers each day, no other symptoms. His testing was delayed a second time. The team has continued to check on Aurelio and he continued to be febrile for several weeks and continues to feel worse each day. Discussed case with team and ID, Dr. Sanchez, and is being admitted for fur ther workup. -upon admission pt reports having chills and fever mostly in the evenings. Denies any other symptoms at this time. ROS: A comprehensive review of systems was negative except for: as noted above Past Medical History: Diagnosis Date ??? Diverticulosis [...] ACL RECONSTRUCTION ??? BONE MARROW BIOPSY ??? COLONOSCOPY WITH POLYPECTOMY ??? Knee Arthroscopy Right 2018 with hardware ??? Splenectomy N/A 08/17/2019 N/A; LAPAROSCOPIC SPLENECTOMY POSS OPEN ??? Tonsillectomy ??? VENOUS ACCESS DEVICE (PORT OR CATHETER) Right 2019 subclavian Family History Family history unknown: Yes MEDICATIONS FOR CURRENT ENCOUNTER: Current Facility-Administered Medications Medication ??? apixaban (ELIQUIS) tablet 5 mg ??? cefepime (MAXIPIME) 2,000 mg in sterile water (PF) 20 mL syringe ??? escitalopram (LEXAPRO) tablet 10 mg ??? magnesium sulfate 2 g in 50 mL bolus ??? penicillin v potassium (VEETIDS) tablet 250 mg ??? potassium phosphate 30 mmol in dextrose 5 % 260 mL bolus And ??? potassium chloride 40 mEq in 0.9% NaCl 270 mL bolus ??? rOPINIRole (REQUIP) tablet 0.5 mg ??? sulfamethoxazole-trimethoprim (BACTRIM DS; SEPTRA DS) 800-160 MG tablet 1 tablet ??? valACYclovir (VALTREX) tablet 500 mg VITALS: There were no vitals filed for this visit. Wt Readings from Last 3 Encounters: 11/15/19 123.4 kg (272 lb) 11/11/19 121.7 kg (268 lb 6.4 oz) 11/11/19 121.6 kg (268 lb 0.3 oz) PHYSICAL EXAM: General appearance - alert, well appearing, and in no distress Mental status - alert, oriented to person, place, and time Mouth - mucous membranes moist, pharynx normal without lesions Chest - clear to auscultation, no wheezes, [...] lesions noted LABS: Recent Labs Component Name 02/25/20 2252 11/15/19 0911 11/11/19 1231 11/04/19 0858 WBC 8.5 8.1 6.7 8.1 RBC 4.28* 4.09* 4.02* 3.92* HGB 12.4* 11.9* 11.5* 11.2* HCT 36.4* 35.8* 35.1* 33.6* MCV 85.0 87.5 87.3 85.7 MCH 29.0 29.1 28.6 28.6 MCHC 34.1 33.2 32.8 33.3 PLTCOUNT 464* 560* 632* 309 RDWSD 48.6 61.7* 58.2* 50.7* RDW 16.0* 19.7* 18.9* 17.8* MPV 11.4 9.7 9.7 11.2 NRBCABS 0.00 0.02* 0.06* 3.04* NRBCAUTOPCT 0.0 0.2* 0.9* 37.4* NEUTPCT 65.2 43.7 38.5 - LYMPHSPCT 22.5 37.8 44.0 - MONOPCT 9.4 13.0 13.2 - EOSPCT 1.5 1.1 0.1 - BASOPCT 0.7 4.0* 3.9* - IMMGRANSPCT 0.7 0.4 0.3 - NEUTABS 5.5 3.5 2.6 4.37 LYMPHS 1.9 3.1* 2.9 1.38 MONO 0.80* 1.05* 0.88* 2.03* EOS 0.13 0.09 0.01 - BASO 0.06 0.32* 0.26* 0.08* TOTCELLCNT - - - 100 Recent Labs Component Name 02/26/204111/15/1991011/11/19 1231 BUN 11 13 11 CREATININE 1.0 0.9 1.0 NA 136 140 142 POTASSIUM 3.9 4.2 4.2 CL 102 109* 106 CO2 23 18* 23 CALCIUM 8.6 9.6 9.2 PROT 5.9* 6.4 6.3 ALB 2.7* 3.7 3.6 TBILI 0.1* 0.1* 0.1* ALKPHOS 110 102 108 ALT 31 22 29 AST 29 15 18 ANIONGAP 15 17 17 BCR 11 14 11 OSMOLALITY 281 290 293 AGRATIO 0.8* 1.4 1.3 EGFR >60 >60 >60 Recent Labs Component Name 02/26/204111/15/19 0911 11/11/19 1231 MAGNESIUM 1.7 1.8 1.8 Recent Labs Component Name 02/25/20 2252 11/15/19 0911 11/11/19 1231 PHOS 2.9 2.8 3.5 Infectious Workup BC x 2 (02/25/20) UA with culture (02/25/20) RVP (02/25/20): Covid swab (02/25/20) Covid IgG (02/25/20): Negative CXR (02/25/20): pending ASSESSMENT/PLAN: JALIL LUIS is a 49 year old male, who is Day +128 (Day 0 is 10/20/19) of an autologous peripheral blood stem cell transplant with a 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 SYSTEMS: Marginal Zone Lymphoma in CR2 pre-transplant Schema: 5A Prep: BEAM, Cell count 10.4 x 10^6 CD34+cells/kg in 5 bags; Planned disease evaluation: day [address] A/P -- still needs day 100 assessment, tentatively scheduled 03/03/20 but could be completed inpatient as well. Will need CD4 count as well. Planned post transplant therapy: none planned at this time -Transfusion threshold: Hgb > 7; Plt > 10; CMV +, transfusion pre meds: none needed -Engraftment: ANC day +9 (10/29/19); plt engraftment 11/03/19 (day +14; last platelet transfusion day +7--10/27/19) OI prophylaxis: Bacterial:??PenVK rn long term care due to splenectomy -maintain on PCN VK post-splenectomy until he can be re-vaccinated and adequate titers demonstrated PJP:??Bactrim DS MWF Viral: ACV 800 mg BID Covid -tested positive early January after girlfriend was tested +, didn't have symptoms for 2 weeks, but now has been consistently febrile for several weeks -discussed case with Dr. Sanchez -given that he is asplenic, will repeat Covid swab and get Covid IgG. RVP as well -will get BC x 2, UA with culture -CXR upon admit -consider C/A/P CT -start cefepime 2g Q8 Anxiety/Depression - Lexapro 10 mg daily Restless Leg Syndrome - Requip 0.25 mg QHS Right IJ venous clot 09/27/19 - Eliquis 5 mg BID Discharge Planning: Patients preferred contact information: cell Caregiver: sister, girlfriend Preferred D/C Pharmacy: [facility] Intended lodging: home Referring provider: Cesar Tavares Disposition: Admit to 8N for infectious workup MISSY [facility]- [facility] I reviewed Jalil Bullock case with Tiffanie Nguyen PROVISIONING ANALYST, reviewed the note, and participated in all of the medical decisions. Bill Ferrera M.D. Director, Blood and Marrow Transplantation Nailing Machine Operator Automatic, Department of Internal Medicine [facility] documented in this encounter Procedure Notes * Annabella Hargrove RCP - 03/06/2020 5:00 PM CDT 1500: pt recovering in Bronch Suite. Anesthesia at bedside managing airway and anesthesia vent. 1545: pt placed on Transport Vent: VT 530, RR 12, PEEP 10, FiO2 70%. PACU nurse at bedside. 1700: pt continues to recover in Bronch Suite. PACU nurse and FIRER GLOST KILN present bedside. Preparing for Transport via Transport Vent: VT 530, RR15, PEEP 10, FiO2 100% Pt vital sign stable at this time. * Rafaela Sood APRN-SEWING DEMONSTRATOR - 03/03/2020 1:52 PM CDTProcedure(s): PROC BONE MARROW BIOPSY/ASPIRATION Bone Marrow Procedure Note Indications: surveillance Anesthesia IV: 100mcg fentanyl, 0.5mg ativan Local: lidocaine 1% 10ml Site: right posterior iliac crest Consent The procedure was discussed in detail with the patient and appropriate consent was obtained. Risks of pain, infection, and bleeding were discussed. A time out was performed for patient safety. Prep Under sterile conditions the site was prepped with betadine and draped in the usual manner. Technique The site was identified by landmarks. A Jamshedi needle was introduced into the site and aspirationwas performed. Spicules were identified. Slides were prepared. A second aspirate was performed for molecular studies. The needle was then repositioned and a core biopsy was obtained. The site was then cleaned and bandaged. Comments: Patient tolerated the procedure well. EBL: 8 cc for specimens. Complications: None Start: 1310 Stop: 1345 Eli JOSE DAVID Sood, TALENT ACQUISITION OPERATIONS MANAGER-C Bone Marrow Transplant [facility] * Trey Grossman MD - 03/01/2020 10:42 AM CDT Neuroradiology Procedure Note Procedure: Fluoroscopy-guided lumbar puncture Indication: Fever, nuchal rigidity Procedure Details Immediately prior to the procedure, universal protocol was performed. The patient was re-identifiedand the procedure confirmed with the patient and all other members of the procedure team. Indications, risks and benefits were explained to the patient and informed consent was obtained. The patient was sterilely prepped and draped. Anesthesia used: Local Needle used: 22 gauge 5 inch spinal needle Puncture site: L2-L3 CSF appearance: clear Opening pressure: not measured Contrast used: none Amount of CSF removed: 14 mL in 3 tubes Immediate complications: none The attending physician, Dr. Grossman, was present for the alfonso portions of the procedure. Please see the procedure dictation for full details regarding this procedure and its findings. Camacho Samayoa MD Building Dismantler documented in this encounter Consult Notes * Yovana Lara RD/NIKO - 03/07/2020 3:17 PM CDTAssociated Order(s): IP CONSULT TO NUTRITIONAL SERV Initial Nutrition Assessment Nutrition Recommendations: TF while intubated, on propofol (at 18 ml/hr providing 475 kcal/day) Vital High Protein at goal of 30 ml/hr + 5 pkts prostat Provides 1220 kcal, 138 g protein, 131 g carbohydrate, 602 ml free water. +50 ml q 6 hrs free water flush or per MD Off propofol Vital High Protein at 70 ml/hr. Provides 1680 kcal, 147 g protein, 188 g carbohydrate, and 1404 ml free water. +50 ml q 6 hrs free water flush or per MD Comments: RD received consult per vent protocol. Pt discussed in MICU rounds. Hopeful extubation soon. Sedated with precedex and propofol. Assessment: Med/Surg History and Clinical Diagnoses: Fever, diffuse large B-cell lymphoma, headache, fever in other diseases Height: 5' 7.01 (170.2 cm) Weight: 267 lb 3.2 oz (121.2 kg) BMI: Body mass index is 41.84 kg/m??. BMI Range: Morbidly Obese Class 3 IBW/lb (Calculated) Male: 148.048 , Wt Comments: stable around 120kg Diet order accuracy Current diet order: NPO Nutrition recommendation: alter/change nutrition order P.O.Intake for the past 48 hrs: % Meal Taken Av % Min: 100 % Max: 100 % Food Allergies: No known food allergies GI Concerns: None Chewing/Swallowing: (ETT) Pain affecting intake: No Estimated Needs: KCAL: [id number] (11-14 kcal/kg) Protein (g): 135-170 (2.0-2.5 g/kg IBW) Fluid (ml): 1 ml/kcal Needs based on: (121.2kg; 67.3kg) Recommended Access Route: TF Pertinent Nutrition Labs: reviewed Pertinent Nutrition Medications: noted above Skin/Wound: WDL Education needed: None Nutrition Care Process (1) Nutrition Diagnostic Statement: Increased nutrient needs related to:: increased demands with critical illness(febrile) as evidenced by:: estimated protein needs ..(2.0-2.5 g/kg IBW) Nutrition Diagnostic Statement Progress: New diagnostic statement established Nutrition Intervention: Enteral nutrition: Monitoring: TF, BM, labs, meds, weight Evaluation: Nutrition Goal: Total intake will meet estimated nutrient needs Nutrition Goal Timeframe: Throughout stay Nutrition Goal Progress: New goal established Yovana Lara RD/NIKO Pager #: [phone] * Kalpesh Robison MD - 02/28/2020 7:58 AM CDT Pulmonary Medicine Consult Note Referring service: BMT Reason for referral: Pulmonary infiltrates Name: Jalil Luis, [id number] Age: [age] year old Room: 808/808-01 Date Admitted: 02/25/2020 ? 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 To attempt to minimize exposure, this patient was not assessed by me today. However, he was seen byDr. Marlow, who will attest this note. Per chart review, the patient tested +ve for Covid in January. His was +ve and given his immunocompromised status, he was tested. At that time, he was asymptomatic. However, 2 weeks later, he developed low grade temps. He was admitted on 02/25/2020 for further w/u. Since his admission, he has remained afebrile. He hasbeen on room air. However, a CT scan done on 02-25 showed bilateral patch opacities. Pulmonary wereconsulted for further management. Today, he was afebrile, HR was 70s, BP 130/80, RR 18 while saturating at 94 on ambient air. Past Medical History: Diagnosis Date ??? Diverticulosis [...] ACL RECONSTRUCTION ??? BONE MARROW BIOPSY ??? COLONOSCOPY WITH POLYPECTOMY ??? Knee Arthroscopy Right 2018 with hardware ??? Splenectomy N/A 08/17/2019 N/A; LAPAROSCOPIC SPLENECTOMY POSS OPEN ??? Tonsillectomy ??? VENOUS ACCESS DEVICE (PORT OR CATHETER) Right 2019 subclavian Family History Family history unknown: Yes Social History Occupational History ??? Not on file Tobacco Use ??? Smoking status: Former Smoker Packs/day: 0.50 Types: Cigarettes Start date: 1983 Last attempt to quit: 2001 Years since quittin.5 ??? Smokeless tobacco: Former User Types: Chew Quit date: 2016 Substance and Sexual Activity ??? Alcohol use: Not Currently Frequency: Never Binge frequency: Never ??? Drug use: Yes Frequency: 21.0 times per week Types: Marijuana Comment: none in past month ??? Sexual activity: Not on file Medications Prior to Admission Medication Sig Dispense Refill ??? acyclovir (ZOVIRAX) 400 MG tablet Take 2 tablets by mouth 2 times daily 360 tablet 3 ??? apixaban (ELIQUIS) 5 MG tablet Take 1 tablet by mouth 2 times daily 180 tablet 3 ??? diclofenac sodium EC (VOLTAREN) 75 MG tablet TK 1 T PO BID PRF PAIN ??? escitalopram (LEXAPRO) 10 MG tablet Take 1 tablet by mouth once daily 30 tablet 0 ??? multivitamin daily tablet Take 1 tablet by mouth daily with food ??? ondansetron, disintegrating, (ZOFRAN ODT) 8 MG tablet Dissolve 1 tablet on top of tongue then swallow with saliva every 8 hours as needed for nausea or vomiting ??? oxyCODONE, immediate release, (ROXICODONE) 5 MG tablet Take 1 tablet by mouth every 6 hours as needed for Pain (Patient not taking: Reported on 02/25/2020) 30 tablet 0 ??? penicillin v potassium (VEETIDS) 250 MG tablet Take 1 tablet by mouth 2 times daily 60 tablet 5 ??? prochlorperazine (COMPAZINE) 10 MG tablet Take 10 mg by mouth every 6 hours as needed ??? rOPINIRole (REQUIP) 0.25 MG tablet Take 1 tablet by mouth at bedtime Reasons: Restless Leg Syndrome 90 tablet 3 ??? sulfamethoxazole-trimethoprim (BACTRIM DS; SEPTRA DS) 800-160 MG tablet Take 1 tablet by mouth every Friday, Friday & Friday Reasons: PJP prophylaxis s/p stem cell transplant 12 tablet 3 Allergies Allergen Reactions ??? Adhesive Sensitivity Urticaria and Other Electrodes -- welps where stickers are Also, use paper tape ROS: Review of Systems Constitutional: Negative for chills and fever. HENT: Negative for congestion. Eyes: Negative for blurred vision and double vision. Respiratory: Negative for cough, shortness of breath, wheezing and stridor. Cardiovascular: Negative for chest pain and palpitations. Gastrointestinal: Negative for abdominal pain, nausea and vomiting. Genitourinary: Negative for dysuria and frequency. Skin: Negative for itching and rash. Neurological: Negative for focal weakness and headaches. Psychiatric/Behavioral: Negative for depression. The patient is not nervous/anxious. All other systems reviewed and are negative. Objective: Current vital signs T: 98.5 ??F (36.9 ??C) [Temp Min: 97.7 ??F (36.5 ??C) Max: 98.5 ??F (36.9 ??C)] BP: 121/78[BP Min: 121/78 Max: 127/78] MAP: 91[MAP (mmHg) Min: 88 Max: 91] HR: 77[Pulse Min: 76 Max: 92] RR: 18[Resp Min: 18 Max: 18] Sat: 94 %[SpO2 Min: 94 % Max: 97 %] Physical Examination: Per attending note ? Data Reviewed, pertinent labs/imaging below: Labs: Recent Labs Component Name 02/27/20 2349 02/27/201 02/25/20 2252 11/15/19 0911 WBC 19.0* 7.3 8.5 8.1 RBC 3.68* 4.15* 4.28* 4.09* HGB 10.7* 11.9* 12.4* 11.9* HCT 31.5* 35.4* 36.4* 35.8* MCV 85.6 85.3 85.0 87.5 MCHC 34.0 33.6 34.1 33.2 PLTCOUNT 444* 402* 464* 560* NEUTPCT 89.2* - 65.2 43.7 NEUTABS 17.0* 6.79 5.5 3.5 Recent Labs Component Name 02/27/20 2349 02/27/201 02/26/20 0042 POTASSIUM 4.6* 4.5 3.9 CO2 22 19* 23 BUN 16 12 11 CREATININE 0.9 0.8 1.0 GLUCOSE 141* 145* 97 CALCIUM 8.6 8.8 8.6 ALT 29 29 31 ALKPHOS 97 109 110 AST 22 22 29 EGFR >60 >60 >60 Imaging: CT scan reviewed. Has BL peripheral GGO. ECHO: Technically difficult/suboptimal echocardiogram. Left ventricular systolic function is mildly decreased with an ejection fraction by Biplane Method of Discs of 56 %. The left ventricular diastolic function is normal, consistent with normal left ventricle filling pressures. The right ventricular cavity size is normal. Normal right ventricular systolic function. The aortic root at the sinus of valsalva is mildly dilated measuring 4.00 cm with an index of 1.58 cm/m2. Valve structures not well visualized. Doppler interrogation does not show any significant valvular abnormalities. Micro: Microbiology Results (Displays last 21 days for this encounter ONLY) Procedure Component Value - Date/Time HERPES SIMPLEX 1+2 PCR CSF [[id number]] Lab Status: No result Specimen: Microbiology from CSF SARS-COV-2 (COVID-19) IN HOUSE [[id number]] (Normal) Collected: 02/27/20 1641 Lab Status: Final result Specimen: Microbiology from Nasopharyngeal Updated: 02/28/20 155 COVID-19 Not detected Narrative: This Real Time RT-PCR assay was developed and its performance characteristics determined by [facility]. This test has been authorized by the Food and Drug administration (FDA)under an Emergency Use Authorization (EUA). This test has been validated [...] 21 U.S.C 360bbb-3 (b)(1), unless the authorization isterminated or revoked sooner. TOXOPLASMA GONDII PCR [[id number]] Collected: 02/27/20 041 Lab Status: In process Specimen: Microbiology from Blood Updated: 02/27/20 041 CULTURE BLOOD [[id number]] Collected: 02/26/20 171 Lab Status: Preliminary result Specimen: Blood Peripheral Updated: 02/28/20 0117 Culture No growth 24 hours CULTURE BLOOD FUNGUS [[id number]] Collected: 02/26/20 170 Lab Status: Preliminary result Specimen: Blood Peripheral Updated: 02/28/20 0950 Culture Culture in progress CULTURE BLOOD AFB [[id number]] Collected: 02/26/20 1705 Lab Status: Preliminary result Specimen: Blood Peripheral Updated: 02/27/20 1321 Culture Culture in progress CULTURE BLOOD [[id number]] Collected: 02/26/20 1705 Lab Status: Preliminary result Specimen: Blood Peripheral Updated: 02/28/20 0117 Culture No growth 24 hours CYTOMEGALOVIRUS (CMV) QUANTITATIVE PLASMA [[id number]] Collected: 02/26/20 120 Lab Status: In process Specimen: Blood Updated: 02/26/20 1230 ISA-JUAN VIRUS QUANT BLOOD STL [[id number]] Collected: 02/26/20 120 Lab Status: Final result Specimen: Blood Updated: 02/28/20 1427 EBV Quant by PCR, Interp Not Detected Specimen Type Plasma Narrative: DNA isolated from the plasma was analyzed in a qPCR assay to detect and quantify Isa-Juan DNA. An internal control is included to evaluate for PCR inhibition. The quantitative range of this assay is 500 IU/mL to 5,000,000 IU/mL. Values below 500 IU/mL will be reported as Detected (<500 IU/mL). This test was developed and its performance characteristics determined by [facility]. It has not been cleared or approved by the U.S. Food and Drug Administration. The FDA hasdetermined that such clearance or approval is not necessary. The test is used for clinical purposes. It should not be regarded as investigational or for research. This laboratory is certified under the Clinical Laboratory Improvement Amendments of 1988(CLIA-88) as qualified to perform high complexity clinical laboratory testing. CULTURE URINE [[id number]] (Normal) Collected: 02/26/20 0008 Lab Status: Final result Specimen: Urine Clean Catch Updated: 02/27/20 0744 Culture Urine No growth (<100 CFU/mL) CULTURE BLOOD [[id number]] Collected: 02/25/202254 Lab Status: Preliminary result Specimen: Blood Peripheral Updated: 02/28/20 0152 Culture No growth CULTURE BLOOD [[id number]] Collected: 02/25/202251 Lab Status: Preliminary result Specimen: Blood Peripheral Updated: 02/28/20 0152 Culture No growth RESPIRATORY PATHOGEN PANEL BY PCR [[id number]] (Normal) Collected: 02/25/202236 Lab Status: Final result Specimen: Microbiology from Nasopharyngeal Updated: 02/26/20 0521 Adenovirus PCR Not detected Coronavirus PCR Not detected Human Metapneumovirus PCR Not detected Human Rhinovirus/Enterovirus PCR Not detected Influenza A PCR Not detected Influenza B PCR Not detected Parainfluenza Virus 1 PCR Not detected Parainfluenza Virus 2 PCR Not detected Parainfluenza Virus 3 PCR Not detected Parainfluenza Virus 4 PCR Not detected Respiratory Syncytial Virus PCR Not detected Bordetella pertussis PCR Not detected Chlamydia pneumoniae PCR Not detected Mycoplasma pneumoniae PCR Not detected Narrative: This test is able to detect the following human coronaviruses: HKU1, NL63, 229E, and OC43. It will NOT detect 2019 Novel Coronavirus (2019-nCoV). If 2019-nCoV is suspected contact Infection Prevention for isolation and testing guidance. SARS-COV-2 (COVID-19) IN HOUSE [[id number]] (Normal) Collected: 02/25/202236 Lab Status: Final result Specimen: Microbiology from Nasopharyngeal Updated: 02/26/20 1619 COVID-19 Not detected Narrative: This Real Time RT-PCR assay was developed and its performance characteristics determined by [facility]. This test has been authorized by the Food and Drug administration (FDA)under an Emergency Use Authorization (EUA). This test has been validated [...] 21 U.S.C 360bbb-3 (b)(1), unless the authorization isterminated or revoked sooner. Assessment and Plan: Assessment: 1. SARS CoV 2 +ve -- Initial test in January was +ve. Last 2, done this admission, were negative 2. BL pulmonary infiltrates -- Despite negative recent SARS CoV test. COVID 19 seems to be the most likely cause of his infiltrates. -- Other differentials include CAP though this seems less likely -- RVP on admission was negative. -- Imaging not entirely consistent with fungal pneumonia though this is in the differential for an immunocompromised host -- Inflammatory disorders such as eosinophilic pneumonia, OP or even NSIP are in the differential 3. Marginal zone lymphoma 4. HF 5. Anemia Plan: - Continue supportive care - Transplant ID following. - No role for bronchoscopy at this time. - After resolution of symptoms, in 4 - 6 weeks, will need repeat imaging. - PT/OT, early ambulation, incentive spirometry - smoking cessation counseling Thank you for the consult. Please call with any further questions. Gracie Robison M.D. Pulmonary and Critical Care Fellow, PGY-6 [facility] [employer] Division of Pulmonary, Critical Care and Sleep Medicine Pager: [phone] 02/28/2020 Associated attestation - Hipolito Marlow MD - 02/28/2020 7:24 PM CDT I have seen and examined the patient with the housestaff on the Pulmonary team, and I agree with the findings, assessment and plan as documented by the housestaff. Patient reportedly tested positive for COVID-19 at the beginning of January after his developed symptoms and tested positive. At the time of testing he was asymptomatic. Around 4 weeks afterwards he reports developing fever, dry cough and shortness of breath. He was admitted for workup of these persistent fevers. Repeat testing for SARS CoV-2 has been negative now x 2 and his SARS CoV-2 IgG is also negative. CT chest shows bilateral hazy GGOs concerning for infectious process. He was started on Cefepime then Vancomycin was added. Transplant ID consulted and a detailed infectious workup is in process. Patient is hemodynamically stable on room air. Recommendations: - Symptoms and chest imaging findings are likely related to COVID-19 pneumonia. It is unclear if his chest imaging findings are residual from the infection (inflammatory changes that will resolve over time) or if he continues to have viral replication and active infection. His fevers have me concerned that he still has active viral replication despite having a negative nasopharyngeal swab x 2 - he could still have viral replication within the lungs but not in the nasopharynx. IgG for SARS CoV-2should be positive by 30 days post infection; however, given his immunosuppressed status this may be why his IgG was negative. - Agree with covering for bacterial pneumonia causes with current antibiotics - F/u extensive infectious workup as outlined by ID - Would not perform flexible bronchoscopy at this time as I believe his symptoms and chest imaging findings are due to COVID-19 Date of Service: 02/28/2020 Pulmonary/Critical Care attending: Hipolito Marlow MD * Natalie Benton MD - 02/26/2020 6:42 PM CDTAssociated Order(s): IP CONSULT TO NEUROLOGY Neurology Consult Note Patient: Jalil Luis Age: [age] year old Admission Date and Time: 02/25/2020 Reason for consult/Chief Complaint: Headache with concern for meningitis and possible LP History of Presenting Illness: Jalil Luis is a 49 year old male with PMH non hodgkin lymphoma, splenectomy, s/p bone marrow transplant 4 months ago. For the last 2 weeks he has been having fevers. He had tested positive for COVID in January, but had been asymptomatic prior to 2 weeks ago. He wasadmitted on 02/24 for infectious workup with history of immunocompromised. Patient continues to be fe brile treated with Tylenol. Per patient headache happens most days starting 2 weeks ago. Feels fromback of head and radiates to front of head. Pain 10/10 throbbing, last about 45 min or however longit takes fever to go down. When not febrile he does not have headache. Quality, severity, frequencyhave not changed since it began 2 weeks ago. Past Medical History No history on file. Past Medical History: Diagnosis Date ??? Diverticulosis [...] ACL RECONSTRUCTION ??? BONE MARROW BIOPSY ??? COLONOSCOPY WITH POLYPECTOMY ??? Knee Arthroscopy Right 2018 with hardware ??? Splenectomy N/A 08/17/2019 N/A; LAPAROSCOPIC SPLENECTOMY POSS OPEN ??? Tonsillectomy ??? VENOUS ACCESS DEVICE (PORT OR CATHETER) Right 2019 subclavian Allergies Allergies Allergen Reactions ??? Adhesive Sensitivity Urticaria and Other Electrodes -- welps where stickers are Also, use paper tape Family History Family History Family history unknown: Yes Social History Social History Social History Narrative ??? Not on file Review of Systems General - Denies changes in weight or appetite ENT - Denies dental or swallowing difficulties Cardiac - Denies chest pain or palpitations Pulmonary - Denies shortness of breath, cough, or sputum production Gastrointestinal - Denies abdominal pain or changes in bowel habits Genitourinary - Denies changes in bladder habits Endocrine - Denies heat or cold intolerance Musculoskeletal - Denies myalgias or arthralgias Hematological - Denies history of malignancy or blood abnormalities Neurological - See HPI Objective: BP 135/82 Pulse 105 Temp 101 ??F (38.3 ??C) (Oral) Resp 18 Ht 5' 7 Wt 265 lb SpO2 100% BMI 41.5 kg/m2 Temp (30hrs) Max:101 ??F (38.3 ??C) Body mass index is 41.5 kg/m??. Exam: General: Con - NAD, afebrile Heent - NCAT, MMM, anicteric Neck - No JVD, LAD, trachea midline CV - RRR for age, normal s1/s2, no m/r/g Pulm - CTAB, no w/r/r Abd - BS+, soft, NTND Ext: No c/c/e, 2+ dpp, normal ROM Cortical Function Mental Status Awake, alert, follows commands Orientation Person, place, time, and situation Language Fluency intact, comprehension intact, repetition intact Visual [place] Intact bilaterally to confrontation Neglect No visual neglect noted, no tactile neglect noted Cranial Nerves II Pupils 4 mm and bilaterally reactive to light. Fundoscopic exam not performed. VIII Hearing is intact bilaterally to finger rub. III/IV/ Extraocular muscles intact. No diplopia, ptosis, nystagmus or convergence abnormalities noted. IX/X Palate elevated symmetrically without phonation abnormalities noted. V Facial sensation symmetric to light touch and intact bilaterally. Corneal reflex not examined. XIHead turning and shoulder shrug are intact. VII No facial palsy noted. XII Tongue is midline with normal movements and no atrophy noted. Motor Function Movement No abnormalities noted Bulk No abnormalities noted Tone No abnormalities noted Proximal Upper Distal Upper Proximal Lower Distal Lower Right 5/5 5/5 5/5 5/5 Left 5/5 5/5 5/5 5/5 Muscle Stretch Reflexes BI TRI BR PAT ACH TOES Right 2 2 2 2 2 Down Left 2 2 2 2 2 Down Sensory No nuchal rigidity Light Touch Symmetric and intact bilaterally Noxious Stimuli Symmetric and intact bilaterally Temperature Not tested Pallesthesia Not tested Cerebellar FNF RAD HKS Right Intact Deferred Intact Left Intact Deferred Intact Gait Deferred Labs: Recent Results (from the past 24 hour(s)) RESPIRATORY PATHOGEN PANEL BY PCR Collection Time: 02/25/20 10:37 PM Result Value Ref Range Adenovirus PCR Not detected Not detected, Invalid, Indeterminate Coronavirus PCR Not detected Not detected, Invalid, Indeterminate Human Metapneumovirus PCR Not detected Not detected, Invalid, Indeterminate Human Rhinovirus/Enterovirus PCR Not detected Not detected, Invalid, Indeterminate Influenza A PCR Not detected Not detected, Equivocal, Invalid, Indeterminate Influenza B PCR Not detected Not detected, Invalid, Indeterminate Parainfluenza Virus 1 PCR Not detected Not detected, Invalid, Indeterminate Parainfluenza Virus 2 PCR Not detected Not detected, Invalid, Indeterminate Parainfluenza Virus 3 PCR Not detected Not detected, Invalid, Indeterminate Parainfluenza Virus 4 PCR Not detected Not detected, Invalid, Indeterminate Respiratory Syncytial Virus PCR Not detected Not detected, Invalid, Indeterminate Bordetella pertussis PCR Not detected Not detected, Invalid Chlamydia pneumoniae PCR Not detected Not detected, Invalid, Indeterminate Mycoplasma pneumoniae PCR Not detected Not detected, Invalid, Indeterminate SARS-COV-2 (COVID-19) IN HOUSE Collection Time: 02/25/20 10:37 PM Result Value Ref Range COVID-19 Not detected Not detected, Invalid CBC W AUTO DIFFERENTIAL Collection Time: 02/25/20 10:52 PM Result Value Ref Range WBC 8.5 3.5 - 10.5 10??3/uL RBC 4.28 (L) 4.30 - 5.70 10??6/uL Hemoglobin 12.4 (L) 13.5 - 17.5 g/dL Hematocrit 36.4 (L) 39.0 - 50.0 % MCV 85.0 81.0 - 97.0 fL MCH 29.0 28.0 - 34.0 pg MCHC 34.1 32.0 - 36.0 g/dL Platelet Count 464 (H) 150 - 400 10??3/uL RDW-SD 48.6 36.0 - 50.0 fL RDW-CV 16.0 (H) 11.2 - 14.8 % MPV 11.4 9.3 - 12.8 fL nRBC Absolute 0.00 0 10??3/uL nRBC Auto 0.0 0 /100 WBC Neutrophils % 65.2 35.0 - 70.0 % Lymphocytes % 22.5 19.7 - 55.1 % Monocytes % 9.4 3.0 - 15.0 % Eosinophils % 1.5 0.0 - 6.0 % Basophil % 0.7 0.0 - 1.5 % Neutrophils Absolute 5.5 1.6 - 7.0 10??3/uL Lymphocyte Absolute 1.9 0.8 - 2.9 10??3/uL Monocytes Absolute 0.80 (H) 0.14 - 0.66 10??3/uL Eosinophils Absolute 0.13 0.00 - 0.45 10??3/uL Basophils Absolute 0.06 0.00 - 0.06 10??3/uL Immature Granulocytes % 0.7 0.0 - 1.0 % PHOSPHORUS BLOOD Collection Time: 02/25/20 10:52 PM Result Value Ref Range Phosphorus 2.9 2.3 - 4.7 mg/dL SARS-COV-2 (COVID-19) ANTIBODY IGG Collection Time: 02/25/20 10:52 PM Result Value Ref Range CoV2 IGG Negative URINALYSIS REFLEX TO MICROSCOPIC NO CULTURE Collection Time: 02/26/20 12:08 AM Result Value Ref Range Color UA Yellow Straw, Yellow, Colorless Clarity UA Clear Clear, Slt Cloudy Specific [place] UA 1.031 (H) 1.005 - 1.030 pH UA 5.0 5.0 - 8.0 pH Protein UA 2+ (Abnormal) Negative mg/dL Glucose UA Negative Negative mg/dL Ketone UA Negative Negative mg/dL Bilirubin UA Negative Negative mg/dL Blood UA Negative Negative Nitrite UA Negative Negative Leukocyte Esterase Negative Negative Urobilinogen UA Negative Negative mg/dL RBC UA 3-5 None Seen, 0-2, 3-5 /HPF WBC UA 0-5 None Seen, 0-5 /HPF Squamous Epithelial Cells UA None Seen None Seen, 0-2 /HPF Mucus UA 1+ None, 1+ /LPF COMPREHENSIVE METABOLIC PANEL Collection Time: 02/26/20 12:42 AM Result Value Ref Range BUN 11 7 - 26 mg/dL Creatinine 1.0 0.6 - 1.2 mg/dL Sodium 136 136 - 145 mmol/L Potassium 3.9 3.5 - 4.5 mmol/L Chloride 102 98 - 107 mmol/L CO2 23 22 - 29 mmol/L Glucose 97 70 - 115 mg/dL Calcium 8.6 8.4 - 10.2 mg/dL Protein Total 5.9 (L) 6.0 - 8.3 g/dL Albumin 2.7 (L) 3.4 - 5.0 g/dL Bilirubin Total 0.1 (L) 0.2 - 1.2 mg/dL Alkaline Phosphatase 110 40 - 150 Units/L ALT 31 0 - 55 Units/L AST 29 5 - 34 Units/L Anion Gap 15 8 - 18 BUN/Creatinine Ratio 11 7 - 23 Osmolality Calculated 281 270 - 300 mOsm/kg Albumin/Globulin Ratio 0.8 (L) 1.1 - 2.3 eGFR >60 >60 mL/min/1.73 m2 MAGNESIUM BLOOD Collection Time: 02/26/20 12:42 AM Result Value Ref Range Magnesium 1.7 1.6 - 2.6 mg/dL LDH BLOOD Collection Time: 02/26/20 12:42 AM Result Value Ref Range LDH Total 280 (H) 125 - 243 Units/L IGG BLOOD Collection Time: 02/26/20 12:01 PM Result Value Ref Range IgG 209 (L) 540-1,822 mg/dL Neuroimaging: MRI brain pending Assessment and Recommendations: Jalil Luis has severe headache going on for 2 weeks associated with fever with history of immunocompromised. MRI prelim normal no meningeal enhancement or signs of mets. Normal Neuro exam and no nuchal rigidity. He is currently on broad spectrum Recommendations: 1) Cefepime, Vancomycin 2) Change Valacyclovir to IV meningitic dosing 3) Tylenol, Precedex, oxycodone PRN are good options for headache 4) LP in AM depending on clinical status and lab findings Discussed with Attending Physician, Dr. Clive Tesfaye MD Pediatric Neurology Resident, PGY-3 Attending Note: I have seen and examined the patient with the resident. I confirm the history, physical findings, assessment, and plan as documented. My additions and/or exceptions are noted below: 49 year-old man with NHL s/p BMT four months ago and COVID in January comes in for episodic fever associated with headache last two weeks. Headaches well controlled by tylenol, today is 10/09. Neuro-exam is non focal. Brain MRI done, looks fine to me, report is pending though. MRV not done. He is on antibiotics, Agree with LP, please send for routine, OCB, herpes family including herpes 7, consider CTV. Primary is working out for fever etiology, neurology will continue to follow. Please call with any questions. Natalie Benton MD., PhD. * Fam Torres MD - 02/26/2020 2:39 PM CDTAssociated Order(s): IP CONSULT TO INFECTIOUS DISEASES [facility] [place] [facility] [place] Patient Name: Jalil Luis 1970 Room: [facility]/808- Date of Admission: 02/25/2020 Date of Service: 02/26/2020 Primary Care Physician: Ran Nuñez MD Attending Physician: No att. 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 Patient presented to [facility] on 02/25/2020 c/o persistent fevers for 2 weeks. The fevers have been persistent despite compliance with his prophylactic medication (pen VK and bactrim). Patient's reported temperatures ranged from 101-102, with the highest being 103F. Daily tylenol had minimal effect on his fevers. His fevers are associated with constant, throbbing headaches. The headaches have progressively worsened since the fevers began. The pain is located behind his eyes and worse with bright lights. He denies similar headaches in the past. He reports intermittent lightheadedness while standing but denies changes in vision/hearing, dysequilibrium or focal weakness. He also reports new onset dyspnea with exertion. He is unable to climb a flight of stairs since hissymptoms began. The dyspnea has not worsened or occurred at rest. It is associated with a dry coughbut not chest pain/pressure. Patient was scheduled to follow up with the BMT team for 100 day tests but was delayed due to fevers and concerns for COVID-19. Patient and his were exposed to an asymptomic COVID family member in january. Patient and his tested positive on January 06. The patient states he was asymptomatic while his had to be hospitalized. Otherwise, patient reports anosmia and dysgeusia since his chemotherapy in June 2018. He had 1 episode of nausea and vomiting from chemo 2 weeks ago. These are well controlled with compazine. Past Medical History: Diagnosis Date ??? Diverticulosis [...] ACL RECONSTRUCTION ??? BONE MARROW BIOPSY ??? COLONOSCOPY WITH POLYPECTOMY ??? Knee Arthroscopy Right 2018 with hardware ??? Splenectomy N/A 08/17/2019 N/A; LAPAROSCOPIC SPLENECTOMY POSS OPEN ??? Tonsillectomy ??? VENOUS ACCESS DEVICE (PORT OR CATHETER) Right 2019 subclavian Marital status: Children: 3 Living situation: lives with Pets: cat and dog Smoking: denies Alcohol: denies Illicit drugs/IV drug use: occasional marijuana Occupational Hx: [employer] Education Level: high school Travel Hx: none within the last year Sick contacts: 's sister in January 2020, asymptomatic COVID Incarcerated: for short period of time hx: denies STD Hx: denies Sexually active: denies Sexual preference: women HIV status: negative TB exposure: denies hx PPD status: negative Immunizations: Has not received PCV Family History Family history unknown: Yes Allergies: Allergies Allergen Reactions ??? Adhesive Sensitivity Urticaria and Other Electrodes -- welps where stickers are Also, use paper tape ROS: General: weight loss, decreased PO intake, fatigue, weakness, fever/chills HEENT: vision changes, hearing loss, tinnitus, rhinorrhea, hoarseness, sore throat Cardiac: chest pain, palpitations, dyspnea on exertion Respiratory: shortness of breath, wheezing, cough, sputum, hemoptysis Gastrointestinal: dysphagia, odynophagia, abdominal pain, nausea, vomiting, change in bowel habits,diarrhea, constipation Genitourinary: dysuria, hematuria, hesitancy, frequency Musculoskeletal: muscle weakness, joint pain or stiffness, limited range of motion Neurologic: dizziness, lightheadedness, headache Hematologic: easy bruising/bleeding Endocrine: thyroid problems, diabetes Skin: rashes, itching Psychiatric: recent depression, anxiety Home medications: Prior to Admission medications Medication Sig Start Date End Date Taking? Authorizing Provider acyclovir (ZOVIRAX) 400 MG tablet Take 2 tablets by mouth 2 times daily 11/10/19 Yes Tiffanie Nguyen APRN-CNP apixaban (ELIQUIS) 5 MG tablet Take 1 tablet by mouth 2 times daily 11/10/19 Yes Tiffanie Nguyen APRN-CNP diclofenac sodium EC (VOLTAREN) 75 MG tablet TK 1 T PO BID PRF PAIN 11/08/19 Yes ProviderFlor MD escitalopram (LEXAPRO) 10 MG tablet Take 1 tablet by mouth once daily 06/28/19 Yes Tiffanie Nguyen APRN-CNP multivitamin daily tablet Take 1 tablet by mouth daily with food Yes ProviderFlor MD ondansetron, disintegrating, (ZOFRAN ODT) 8 MG tablet Dissolve 1 tablet on top of tongue then swallow with saliva every 8 hours as needed for nausea or vomiting 04/19/19 Yes ProviderFlor MD oxyCODONE, immediate release, (ROXICODONE) 5 MG tablet Take 1 tablet by mouth every 6 hours as needed for Pain Patient not taking: Reported on 02/25/2020 10/29/19 Hillary Apple MD penicillin v potassium (VEETIDS) 250 MG tablet Take 1 tablet by mouth 2 times daily 08/11/19 Yes Tiffanie Nguyen APRN-CNP prochlorperazine (COMPAZINE) 10 MG tablet Take 10 mg by mouth every 6 hours as needed 04/27/19 Yes ProviderFlor MD rOPINIRole (REQUIP) 0.25 MG tablet Take 1 tablet by mouth at bedtime Reasons: Restless Leg Syndrome10/29/19 Yes Asim Ramirez APRN-CNP sulfamethoxazole-trimethoprim (BACTRIM DS; SEPTRA DS) 800-160 MG tablet Take 1 tablet by mouth every Friday, Friday & Friday Reasons: PJP prophylaxis s/p stem cell transplant 11/01/19 Yes Asim Ramirez APRN-ERIKA Inpatient medications ??? apixaban 5 mg Oral BID ??? cefepime 2 g Intravenous q8h ??? escitalopram 10 mg Oral QDAY ??? rOPINIRole 0.5 mg Oral AT BEDTIME ??? sulfamethoxazole-trimethoprim 1 tablet Oral FRI, FRI AND FRI ??? valACYclovir 500 mg Oral BID PRN Medications magnesium sulfate ??? potassium phosphate AND potassium chloride Current Abx Cefepime 02/24 - current valacycolvir 02/25 - current Prior Abx at [facility] Bactrim MWF and Pen VK daily OBJECTIVE: Vital Signs: BP 126/83 Pulse 92 Temp 98 ??F (36.7 ??C) (Oral) Resp 18 Ht 5' 7 (1.702 m) Wt 265 lb (120.2 kg) SpO2 96% BMI 41.5 kg/m2 Temp (24hrs), Av.5 ??F (36.9 ??C), Min:97.8 ??F (36.6 ??C), Max:99.6 ??F (37.6 ??C) PHYSICAL EXAM deferred due to COVID-19. patient is altered and oriented x4. answering questions appropriately. Labs: CBC: Recent Labs Component Name 02/25/20 2252 11/15/19 0911 11/11/19 1231 WBC 8.5 8.1 6.7 RBC 4.28* 4.09* 4.02* HGB 12.4* 11.9* 11.5* HCT 36.4* 35.8* 35.1* MCV 85.0 87.5 87.3 BMP: Recent Labs Component Name 02/26/20 0042 11/15/19 0911 11/11/19 1231 NA 136 140 142 CL 102 109* 106 CO2 23 18* 23 BUN 11 13 11 CREATININE 1.0 0.9 1.0 ALB 2.7* 3.7 3.6 PROT 5.9* 6.4 6.3 estimated creatinine clearance is 110.8 mL/min (based on SCr of 1 mg/dL). LFTs: Recent Labs Component Name 02/26/20 0042 11/15/19 0911 11/11/19 1231 11/04/19 0858 11/01/19 0909 10/30/19 1115 10/29/19 0002 10/28/19 0000 10/27/19 0007 10/26/19 0012 10/25/19 0013 10/24/19 0015 10/23/19 0031 10/22/19 0015 10/20/19 2359 10/20/19 0041 10/19/19 0021 10/17/19 2343 10/17/19 0020 10/16/19 0002 10/15/19 0019 10/13/19 2319 10/13/19 0951 09/30/19 1115 09/09/19 1242 08/26/19 1345 08/19/19 0542 08/18/19 0555 07/26/19 1248 06/28/19 1351 06/09/19 1341 05/24/19 1206 03/22/19 1500 ALKPHOS 110 102 108 128 124 119 102 95 84 69 72 64 64 73 77 80 82 86 83 90 104 126 137 155* 108 35848 65 74 63 70 65 125 ALT 31 22 29 42 47 48 43 54 53 46 56* 68* 77* 103* 122* 117* 137* 76* 70* 40 33 49 46 58* 36 48 35 40 68* 31 30 31 22 AST 29 15 18 26 25 27 14 18 17 12 12 14 19 23 50* 28 56* 25 29 19 15 21 20 23 20 31 29 31 31 19 22 19 20 Coagulation: Recent Labs Component Name 09/09/19 1242 PT 12.9 INR 1.0 PTT 27.4 MICROBIOLOGY: Blood culture: 02/24 NGTD Urine culture: 02/24 NGTD COVID-19 pending Negative respiratory pathogen panel HISTOPATHOLOGY: None at this admission IMAGING & PROCEDURE: Pertinent images independently reviewed; report in chart ASSESSMENT AND RECOMMENDATIONS: Persistent Pyrexia in Asplenic and autologous Stem cell transplant patient - Ddx: persistent fevers in an asplenic patient on Penicillin VK raises concern for occult / subtleencapsulated bacteria infection. - Associated headaches raises concern for subacute streptococcal meningitis (delayed presentation due to penicillin prophylaxis) - In setting of recurrent malignancy raises concern for space occupying lesion (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 lymphoma) or toxoplasma in setting of aSCT - unable to r/o subtle bacterial pneumonia without CT chest - doubt persistent COVID-19 with diagnosis on January 07 - ASCT: 10/20/2019 COVID - tested positive in January 07. doubt persistent infection - dyspnea potentially sequelae of COVID infection Non-Hodgkin's Marginal Zone Lymphoma - R-CHOP x 09 August 2017 - Second line therapy with bendamustine and Gazyva cycle 3 completed on 06/17/19 - BM Bx 06/09/19: no evidence of lymphoma - Status post autologous peripheral blood stem cell transplant on October 20, 2019 Asplenia - s/p lap-splenectomy 08/2019 for lymphoma relapse - Did NOT receive 100 day PCV vaccination - high risk of severe infection by encapsulated bacteria - on chronic PO Pen VK prophylaxis Plan/Recommendations: - continue cefepime - Repeat BC with Fungal and AFB BC as well - continue OI prophylaxis (bactrim/ACV) and Pen VK - MRI brain w/ and w/o contrast to assess etiology of headache. If no acute process on MRI, consider LP to r/o meningitis - bartonella henselae IgM, IgG and PCR - Toxoplasma IgG and IgM, PCR - follow up CT CAP - follow hospital policy for COVID-19 therapy if positive - Follow CBC with manual diff, CMP, and complete urinalysis weekly (at minimum) while on IV antibiotics Addendum 02/25 1630 Received call from BMT PROVISIONING ANALYST. Mr Luis experienced sudden onset severe headache. Getting BC and MRI brain stat. MRI brain with post-contrast FLAIR has 96% sensitivity for meningitis. LP with (cell count, glucose, protein, gram statin/culture, afb and fungal, HSV and VSV PCR) if no mass occupying lesion on MRI Recommended adding IV vancomycin to augment anti-streptococcal effect in meningitis, ampicillin 2g q4 (listeria coverage) and IV acyclovir (HSV encephalitis) Start 10mg IV decadron q6 for 4 days. Discontinue if CSF cultures negative for streptococcus Thank you for allowing us to participate in the care of this patient. We will continue to follow and monitor. Plan discussed with Attending, Dr Aguilar, and primary team: BMT PROVISIONING ANALYST Fam Torres DO (PGY-4) Infectious Disease Fellow (Team 1) Pager [phone] Associated attestation - Luli Aguilar MD - 02/27/2020 11:00 AM CDT [facility] Infectious Diseases Attending Note Documentation Date/Time: 02/26/2020, 5:17 PM The patient was seen and evaluated with ID fellow Dr. Torres. I agree with the findings as described in the note, including the history, interval changes, ROS, examination, objective data interpretation, impression and plan asdocumented, though specifically I note the following: Patients Inpatient Length of Stay - 1 days Reason for Infectious Disease Consultation: recent COVID-19 positive on 01/07/2020 per patient report, fever over the past 2 weeks. History of presenting illness: Jalil Luis is a 49 year old male with PMH of marginal zone lymphoma s/p autologous peripheralblood stem cell transplant on 10/20/19, s/p splenectomy (08/2019) on Pen VK for ppx, recent COVID-19 positive on 01/07/2020 per patient report (not received any treatment or clinical trial for this),and right IJ DVT 09/27/19, who presented to [facility] on 02/24/10 with c/o intermittent low grade fevers, moderate to severe headache, photophobia, and neck pain over the last 2 weeks. ID is called for consult regarding management of recent positive COVID-19 and fever. Social Hx and Family Hx: reviewed. Allergies Allergen Reactions Adhesive Sensitivity Urticaria and Other Electrodes -- welps where stickers are Also, use paper tape REVIEW OF SYSTEMS: 11 point ROS obtained and is negative except as noted in HPI. Abx History: Current Abx: Cefepime (02/25/20 - ) Valacyclovir Prior Abx: Penicillin VK PO OBJECTIVES: Vitals: 02/25/20 2356 02/26/20 0120 02/26/20 0728 02/26/20 1606 BP: 126/83 135/82 Pulse: 92 105 Resp: 18 18 Temp: 99.6 ??F (37.6 ??C) 98 ??F (36.7 ??C) (!) 101 ??F (38.3 ??C) SpO2: 96% 100% Weight: 265 lb (120.2 kg) Height: 5' 7 (1.702 m) Estimated body mass index is 41.5 kg/m?? as calculated from the following: Height as of this encounter: 5' 7 (1.702 m). Weight as of this encounter: 265 lb (120.2 kg). Physical Examination: General: Alert, in NAD Head: Normocephalic and atraumatic, +eyebrow and nose piercing Eyes: PERRLA, EOMI, normal conjunctiva, no icterus ENT: Oropharyngeal clear, no oral thrush Neck: Supple, no LAD Lungs: CTAB, no wheezes, crackles, rhonchi Heart: RRR, S1 and S2, no murmur Abdomen: Soft, non-distended, non-tender, +BS, LUQ surgical incision healed Neurologic: Alert & oriented x 3, no focal deficits Extremities: No edema Skin: No rashes appreciated Psychiatry: Mood/affect appropriate Lines: PIV Relevant Labs: Recent Labs Component Name 02/25/20 2252 11/15/19 0911/11/19 1231 WBC 8.5 8.1 6.7 RBC 4.28* 4.09* 4.02* HGB 12.4* 11.9* 11.5* HCT 36.4* 35.8* 35.1* MCV 85.0 87.5 87.3 Recent Labs Component Name 02/26/20 0042 11/15/19 0911 11/11/19 1231 NA 136 140 142 CL 102 109* 106 CO2 23 18* 23 BUN 11 13 11 CREATININE 1.0 0.9 1.0 ALB 2.7* 3.7 3.6 PROT 5.9* 6.4 6.3 Recent Labs Component Name 02/26/20 0042 11/15/19 0911 11/11/19 1231 ALT 31 22 29 AST 29 15 18 ALKPHOS 110 102 108 TBILI 0.1* 0.1* 0.1* Recent Labs Component Name 09/09/19 1242 PT 12.9 INR 1.0 PTT 27.4 RESPIRATORY PATHOGEN PANEL BY PCR 02/25/20: Not detected SARS-COV-2 (COVID-19) 02/25/20: in process 02/25/20: COVID-19 Ab IgG: negative 02/26/20: CMV PCR Quant Blood: in process EBV PCR Quant Blood: in process ADENOVIRUS PCR Quant Blood: in process Microbiology: Blood culture 02/25/20: x 2 in process Urine culture 02/25/20: in process UA: WBC 0-5 Imaging Studies: XR CHEST 1VW PORTABLE (02/25/20): Patchy airspace opacities are seen in the bilateral lungs which may represent atelectasis and/or infection. There is no pleural effusion or pneumothorax. The cardiomediastinal silhouette is normal. The visible bony thorax is intact. CT CHEST ABDOMEN PELVIS W CONT (02/26/20): Pending Assessment: Fever in an autologous peripheral blood stem cell transplant patient and splenectomy: DDx is broad including bacterial, fungal, viral and parasite infection. Important to follow BCx and send fungal and AFB BCx. Associated headache, photophobia, and neck pain are concerning, need to evaluate of bacte rial (Strept pneumoniae, Meningococci, Haemophilus, Listeria, etc), fungal and viral meningitis, and other pathogenic 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 infection. Follow CT C/A/P. Follow Covid-19. Headache, associated with photophobia and neck pain: Severe, duration ~2 weeks. 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 Recommend MRI brain wwo contrast and neurology consult. Consider LP. 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 S/p splenectomy (08/2019) on Pen VK for ppx Recent COVID-19 positive on 01/07/2020 per patient report: Not received any treatment or clinical trial for this). COVID-19 Ab IgG not detected may be related to low immune response secondary to his immunosuppressive condition. Renal function: Estimated Creatinine Clearance: 138.1 mL/min (based on SCr of 0.8 mg/dL). Plan/Recommendations: - Continue cefepime. - Send blood culture, then start IV vancomycin - May start meningitis dose of ampicillin and acyclovir - Send fungal blood culture and AFB blood culture - Follow Covid-19 - Follow CT C/A/P - Recommend MRI brain wwo contrast and neurology consult, consider LP - Send Bartonella henselae serology and PCR, and Toxoplasma serology and PCR - Send Aspergillus Ag Serum, Histoplasma Ag Urine, Histoplasma Ag Blood, Blastomyces Ab Blood, and Cryptococcus Ag Blood Thank you for allowing us to participate in the care of this patient. Infectious Diseases will continue to follow along, please call with questions or concerns. Please see the note by ID fellow Dr. Torres for details. >35 minutes spent on the care of this patient. Luli Aguilar MD Infectious Diseases Pager: [phone] documented in this encounter OR Notes * Brief Op Note - Jorge Luis Ham MD - 03/06/2020 2:24 PM CDT Brief Post-Operative Note 03/06/2020 Jalil Luis Date of Surgery: 03/06/2020 Surgeon(s) and Role: * Elkin Rosenbaum MD - Primary * Jorge Luis Ham MD - Fellow Anesthesiologist: Casandra Newton MD Marine Engineer Cpvec: Benjamin Haynes Anes Asst Pre-Op Diagnosis Codes: * Abnormal CXR [R93.89] Postoperative Diagnosis: pulmonary infiltrates post BMT Procedure(s) and Anesthesia Type: * BRONCHOSCOPY BRONCHIAL LAVAGE - General * BRONCHOSCOPY TRANSBRONCHIAL LUNG BIOPSY - General Findings: Clear airways, no mucosal abnormalities, minimal secretions, BAL with excellent return from RML, brush and biopsies of RML Disposition: ICU Status: Stable Complications: none EBL: * No values recorded between 03/06/2020 12:00 AM and 03/06/2020 2:24 PM * Specimen(s): BAL RML, cytobrush RML, transbronchial biopsies RML documented in this encounter Miscellaneous Notes * Significant Event - Monica Latif APRN-SEWING DEMONSTRATOR - 02/26/2020 5:12 PM CDT ID called to let our team know they have seen Mr. Luis and he describes severe HAs in between hiseyes occurring intermittently over the past few weeks with fevers. He did describe HAs to our team but not to the same severity. They also told us to order several micro labs (toxo, crypto, bartonella), fungal & AFB cultures and blood cultures. All not urgent. They wanted an MRI of his brain wwo contrast. Concern for disease vs meningitis. CT CAP ordered earlier and waiting to be done as partof further infectious workup. Notified by nurse Roblero of 05/13 COOPER and Temp 101 at 1610. Decided to switch the cultures to now instead of at MT since he is febrile. Order for tylenol for temp and COOPER. Order for 5mg oxy for moderate to severe pain as well and encouraged to give before imaging. Then decided to make the MRI brain stat instead. ID made aware of current temp. Decided to broaden to Vancomycin. 1750mg Q12 started which should run him close to 18. Level before 4th dose. If he gets worse, should switch to Ampicillin and Treatment dose ACV. Also told by ID to start Dex 10mg Q6hrs IV. Ordered. Called neurology for a formal consult and possible LP. They will come assess this evening after hisscans. Plan for possible LP tomorrow. Ordered coags for tonight. Patient taken for CT CAP around 4:40. Returned to 8S and should go for MRI soon. Ordered 1L bolus IVF since febrile and got contrast. Went to assess patient inbetween imaging at 1718. COOPER down to 5/10 after tylenol and oxy. Tolerated CT. Denied vision changes currently but describes blurriness when COOPER at 10/10. No focal deficits with neuro exam. Pupils equal and reactive. Gave him full details of plan above. He is understanding ofit all. Will report off to night MIGUEL to follow CT and MRI results. Monica Latif APRN, TALENT ACQUISITION OPERATIONS MANAGER-BC [facility] Bone Marrow Transplant [phone] documented in this encounter Plan of Treatment Upcoming Encounters Date Type Department Care Team (Late st Contact Info) Description 08/26/2024 11:00 AM LMSW Office Visit [facility] - Pulmonology [address] [place] [address], [place] [id number] Andrew Francis MD [address] [place] [address] [address] DIV OF PULMONARY/[place] [address] Scheduled Orders Name Type Priority Associated Diagnoses Order Schedule REASSESSMENT PARAMETERS Respiratory Care Routine ONCE for 1 Occurrences starting 03/12/2020 until 03/12/2020 documented as of this encounter Procedures Procedure Name Priority Date/Time Associated Diagnosis Comments ERYTHROCYTE SEDIMENTATION RATE Routine 04/05/2020 12:04 AM CDT RBC MORPHOLOGY Routine 04/05/2020 12:04 AM CDT CBC W AUTO DIFFERENTIAL Routine 04/05/20 20 12:04 AM CDT C-REACTIVE PROTEIN Routine 04/05/2020 12 :03 AM CDT D-DIMER Routine 04/05/2020 12:03 AM CDT COMPREHENSIVE METABOLIC PANEL Routine 04/05/2020 12:03 AM CDT PHOSPHORUS BLOOD Routine 04/05/2020 12:0 3 AM CDT MAGNESIUM BLOOD Routine 04/05/2020 12:03 AM CDT LDH BLOOD Routine 04/05/2020 12:03 AM CDT FERRITIN Routine 04/05/2020 12:03 AM CDT C-REACTIVE PROTEIN Routine 04/03/2020 5: 33 AM CDT D-DIMER Routine 04/03/2020 5:33 AM CDT ERYTHROCYTE SEDIMENTATION RATE Routine 04/03/2020 5:33 AM CDT RBC MORPHOLOGY Routine 04/03/2020 5:33 AM CDT CBC W AUTO DIFFERENTIAL Routine 04/03/20 20 5:33 AM CDT COMPREHENSIVE METABOLIC PANEL Routine 04/03/2020 5:33 AM CDT PHOSPHORUS BLOOD Routine 04/03/2020 5:33 AM CDT MAGNESIUM BLOOD Routine 04/03/2020 5:33 AM CDT LDH BLOOD Routine 04/03/2020 5:33 AM CDT IGG BLOOD Routine 04/03/2020 5:33 AM CDT FERRITIN Routine 04/03/2020 5:33 AM CDT COMPREHENSIVE METABOLIC PANEL Routine 03/31/2020 12:40 AM CDT PHOSPHORUS BLOOD Routine 03/31/2020 12:4 0 AM CDT MAGNESIUM BLOOD Routine 03/31/2020 12:40 AM CDT LDH BLOOD Routine 03/31/2020 12:40 AM CDT D-DIMER Routine 03/31/2020 12:37 AM CDT ERYTHROCYTE SEDIMENTATION RATE Routine 03/31/2020 12:20 AM CDT RBC MORPHOLOGY Routine 03/31/2020 12:20 AM CDT CBC W AUTO DIFFERENTIAL Routine 03/31/20 20 12:20 AM CDT C-REACTIVE PROTEIN Routine 03/31/2020 12 :00 AM CDT FERRITIN Routine 03/31/2020 12:00 AM CDT SARS-COV-2 (COVID-19) IN HOUSE Routine 03/29/2020 9:15 PM CDT C-REACTIVE PROTEIN Routine 03/29/2020 12 :24 AM CDT D-DIMER Routine 03/29/2020 12:24 AM CDT ERYTHROCYTE SEDIMENTATION RATE Routine 03/29/2020 12:24 AM CDT RBC MORPHOLOGY Routine 03/29/2020 12:24 AM CDT CBC W AUTO DIFFERENTIAL Routine 03/29/20 20 12:24 AM CDT COMPREHENSIVE METABOLIC PANEL Routine 03/29/2020 12:24 AM CDT PHOSPHORUS BLOOD Routine 03/29/2020 12:2 4 AM CDT MAGNESIUM BLOOD Routine 03/29/2020 12:24 AM CDT LDH BLOOD Routine 03/29/2020 12:24 AM CDT FERRITIN Routine 03/29/2020 12:24 AM CDT C-REACTIVE PROTEIN Routine 03/27/2020 6: 07 AM CDT D-DIMER Routine 03/27/2020 6:07 AM CDT ERYTHROCYTE SEDIMENTATION RATE Routine 03/27/2020 6:07 AM CDT RBC MORPHOLOGY Routine 03/27/2020 6:07 AM CDT CBC W AUTO DIFFERENTIAL Routine 03/27/20 20 6:07 AM CDT COMPREHENSIVE METABOLIC PANEL Routine 03/27/2020 6:07 AM CDT PHOSPHORUS BLOOD Routine 03/27/2020 6:07 AM CDT MAGNESIUM BLOOD Routine 03/27/2020 6:07 AM CDT LDH BLOOD Routine 03/27/2020 6:07 AM CDT FERRITIN Routine 03/27/2020 6:07 AM CDT CULTURE BLOOD Timed 03/24/2020 1:24 PM CDT CULTURE BLOOD Timed 03/24/2020 1:24 PM CDT C-REACTIVE PROTEIN Routine 03/24/2020 12 :29 AM CDT D-DIMER Routine 03/24/2020 12:29 AM CDT ERYTHROCYTE SEDIMENTATION RATE Routine 03/24/2020 12:29 AM CDT RBC MORPHOLOGY Routine 03/24/2020 12:29 AM CDT CBC W AUTO DIFFERENTIAL Routine 03/24/20 12:29 AM CDT COMPREHENSIVE METABOLIC PANEL Routine 03/24/2020 12:29 AM CDT PHOSPHORUS BLOOD Routine 03/24/2020 12:2 9 AM CDT MAGNESIUM BLOOD Routine 03/24/2020 12:29 AM CDT LDH BLOOD Routine 03/24/2020 12:29 AM CDT FERRITIN Routine 03/24/2020 12:29 AM CDT C-REACTIVE PROTEIN Routine 03/22/2020 12 :46 AM CDT D-DIMER Routine 03/22/2020 12:46 AM CDT ERYTHROCYTE SEDIMENTATION RATE Routine 03/22/2020 12:46 AM CDT RBC MORPHOLOGY Routine 03/22/2020 12:46 AM CDT CBC W AUTO DIFFERENTIAL Routine 03/22/20 12:46 AM CDT COMPREHENSIVE METABOLIC PANEL Routine 03/22/2020 12:46 AM CDT PHOSPHORUS BLOOD Routine 03/22/2020 12:4 6 AM CDT MAGNESIUM BLOOD Routine 03/22/2020 12:46 AM CDT LDH BLOOD Routine 03/22/2020 12:46 AM CDT IGG BLOOD Routine 03/22/2020 12:46 AM CDT FERRITIN Routine 03/22/2020 12:46 AM CDT CULTURE BLOOD Timed 03/21/2020 2:19 AM CDT C-REACTIVE PROTEIN Routine 03/21/2020 2: 13 AM CDT CULTURE BLOOD Timed 03/21/2020 2:13 AM CDT RBC MORPHOLOGY Routine 03/21/2020 2:13 AM CDT CBC W AUTO DIFFERENTIAL Routine 03/21/20 2:13 AM CDT B-TYPE NATRIURETIC PEPTIDE Routine 03/21/2020 2:13 AM CDT COMPREHENSIVE METABOLIC PANEL Routine 03/21/2020 2:13 AM CDT PHOSPHORUS BLOOD Routine 03/21/2020 2:13 AM CDT MAGNESIUM BLOOD Routine 03/21/2020 2:13 AM CDT XR CHEST 1VW PORTABLE Routine 03/20/2020 4:51 PM CDT Pneumonia due to COVID-19 virus C-REACTIVE PROTEIN Routine 03/20/2020 8: 44 AM CDT D-DIMER Routine 03/20/2020 8:44 AM CDT ERYTHROCYTE SEDIMENTATION RATE Routine 03/20/2020 8:44 AM CDT RBC MORPHOLOGY Routine 03/20/2020 8:44 AM CDT CBC W AUTO DIFFERENTIAL Routine 03/20/20 8:44 AM CDT COMPREHENSIVE METABOLIC PANEL Routine 03/20/2020 8:44 AM CDT PHOSPHORUS BLOOD Routine 03/20/2020 8:44 AM CDT MAGNESIUM BLOOD Routine 03/20/2020 8:44 AM CDT LDH BLOOD Routine 03/20/2020 8:44 AM CDT FERRITIN Routine 03/20/2020 8:44 AM CDT C-REACTIVE PROTEIN Routine 03/18/2020 11 :57 PM CDT DIFFERENTIAL MANUAL Routine 03/18/2020 1 1:57 PM CDT CBC W AUTO DIFFERENTIAL Routine 03/18/20 20 11:57 PM CDT COMPREHENSIVE METABOLIC PANEL Routine 03/18/2020 11:57 PM CDT PHOSPHORUS BLOOD Routine 03/18/2020 11:5 7 PM CDT MAGNESIUM BLOOD Routine 03/18/2020 11:57 PM CDT C-REACTIVE PROTEIN Routine 03/18/2020 12 :14 AM CDT D-DIMER Routine 03/18/2020 12:14 AM CDT ERYTHROCYTE SEDIMENTATION RATE Routine 03/18/2020 12:14 AM CDT RBC MORPHOLOGY Routine 03/18/2020 12:14 AM CDT CBC W AUTO DIFFERENTIAL Routine 03/18/20 20 12:14 AM CDT COMPREHENSIVE METABOLIC PANEL Routine 03/18/2020 12:14 AM CDT PHOSPHORUS BLOOD Routine 03/18/2020 12:1 4 AM CDT MAGNESIUM BLOOD Routine 03/18/2020 12:14 AM CDT LDH BLOOD Routine 03/18/2020 12:14 AM CDT FERRITIN Routine 03/18/2020 12:14 AM CDT C-REACTIVE PROTEIN Routine 03/16/2020 11 :59 PM CDT CBC W AUTO DIFFERENTIAL Routine 03/16/20 20 11:59 PM CDT COMPREHENSIVE METABOLIC PANEL Routine 03/16/2020 11:59 PM CDT PHOSPHORUS BLOOD Routine 03/16/2020 11:5 9 PM CDT MAGNESIUM BLOOD Routine 03/16/2020 11:59 PM CDT C-REACTIVE PROTEIN Routine 03/16/2020 12 :45 AM CDT D-DIMER Routine 03/16/2020 12:45 AM CDT ERYTHROCYTE SEDIMENTATION RATE Routine 03/16/2020 12:45 AM CDT CBC W AUTO DIFFERENTIAL Routine 03/16/20 12:45 AM CDT COMPREHENSIVE METABOLIC PANEL Routine 03/16/2020 12:45 AM CDT PHOSPHORUS BLOOD Routine 03/16/2020 12:4 5 AM CDT MAGNESIUM BLOOD Routine 03/16/2020 12:45 AM CDT LDH BLOOD Routine 03/16/2020 12:45 AM CDT FERRITIN Routine 03/16/2020 12:45 AM CDT C-REACTIVE PROTEIN Routine 03/15/2020 12 :27 AM CDT CBC W AUTO DIFFERENTIAL Routine 03/15/20 20 12:27 AM CDT COMPREHENSIVE METABOLIC PANEL Routine 03/15/2020 12:27 AM CDT PHOSPHORUS BLOOD Routine 03/15/2020 12:2 7 AM CDT MAGNESIUM BLOOD Routine 03/15/2020 12:27 AM CDT C-REACTIVE PROTEIN Routine 03/14/2020 4: 35 AM CDT D-DIMER Routine 03/14/2020 12:23 AM CDT ERYTHROCYTE SEDIMENTATION RATE Routine 03/14/2020 12:23 AM CDT DIFFERENTIAL MANUAL Routine 03/14/2020 1 2:23 AM CDT CBC W AUTO DIFFERENTIAL Routine 03/14/20 20 12:23 AM CDT COMPREHENSIVE METABOLIC PANEL Routine 03/14/2020 12:23 AM CDT PHOSPHORUS BLOOD Routine 03/14/2020 12:2 3 AM CDT MAGNESIUM BLOOD Routine 03/14/2020 12:23 AM CDT LDH BLOOD Routine 03/14/2020 12:23 AM CDT FERRITIN Routine 03/14/2020 12:23 AM CDT IGG BLOOD Routine 03/13/2020 1:46 PM CDT C-REACTIVE PROTEIN Routine 03/13/2020 3: 43 AM CDT CBC W AUTO DIFFERENTIAL Routine 03/13/20 20 12:13 AM CDT COMPREHENSIVE METABOLIC PANEL Routine 03/13/2020 12:13 AM CDT PHOSPHORUS BLOOD Routine 03/13/2020 12:1 3 AM CDT MAGNESIUM BLOOD Routine 03/13/2020 12:13 AM CDT C-REACTIVE PROTEIN Routine 03/12/2020 5: 22 AM CDT D-DIMER Routine 03/12/2020 12:36 AM CDT ERYTHROCYTE SEDIMENTATION RATE Routine 03/12/2020 12:36 AM CDT DIFFERENTIAL MANUAL Routine 03/12/2020 1 2:36 AM CDT CBC W AUTO DIFFERENTIAL Routine 03/12/20 20 12:36 AM CDT COMPREHENSIVE METABOLIC PANEL Routine 03/12/2020 12:36 AM CDT PHOSPHORUS BLOOD Routine 03/12/2020 12:3 6 AM CDT MAGNESIUM BLOOD Routine 03/12/2020 12:36 AM CDT LDH BLOOD Routine 03/12/2020 12:36 AM CDT FERRITIN Routine 03/12/2020 12:36 AM CDT DIFFERENTIAL MANUAL Routine 03/11/2020 1 2:33 AM CDT CBC W AUTO DIFFERENTIAL Routine 03/11/20 20 12:33 AM CDT COMPREHENSIVE METABOLIC PANEL Routine 03/11/2020 12:33 AM CDT PHOSPHORUS BLOOD Routine 03/11/2020 12:3 3 AM CDT MAGNESIUM BLOOD Routine 03/11/2020 12:33 AM CDT TRANSFUSE CONVALESCENT COVID-19 PLASMA UNIT Routine 03/10/2020 4:09 PM CDT BLOOD TYPE ABO+ RH PANEL Routine 03/10/2020 1:25 PM CDT PREPARE CONVALESCENT COVID-19 PLASMA UNIT Routine 03/10/2020 1:00 PM CDT XR CHEST 1VW PORTABLE STAT 03/10/2020 12:25 PM CDT Fever in other diseases C-REACTIVE PROTEIN Routine 03/10/2020 12 :59 AM CDT D-DIMER Routine 03/10/2020 12:59 AM CDT ERYTHROCYTE SEDIMENTATION RATE Routine 03/10/2020 12:59 AM CDT CBC W AUTO DIFFERENTIAL Routine 03/10/20 20 12:59 AM CDT COMPREHENSIVE METABOLIC PANEL Routine 03/10/2020 12:59 AM CDT PHOSPHORUS BLOOD Routine 03/10/2020 12:5 9 AM CDT MAGNESIUM BLOOD Routine 03/10/2020 12:59 AM CDT LDH BLOOD Routine 03/10/2020 12:59 AM CDT FERRITIN Routine 03/10/2020 12:59 AM CDT CULTURE BLOOD Timed 03/09/2020 8:06 PM CDT CULTURE BLOOD Timed 03/09/2020 7:52 PM CDT COMPREHENSIVE METABOLIC PANEL Routine 03/09/2020 5:54 AM CDT MAGNESIUM BLOOD Routine 03/09/2020 5:54 AM CDT MAGNESIUM BLOOD Routine 03/09/2020 4:10 AM CDT CBC W AUTO DIFFERENTIAL Routine 03/09/20 20 12:45 AM CDT PHOSPHORUS BLOOD Routine 03/09/2020 12:4 5 AM CDT CULTURE URINE Routine 03/08/2020 11:19 PM CDT BASIC METABOLIC PANEL (CALCIUM TOTAL) Routine 03/08/2020 9:40 PM CDT MAGNESIUM BLOOD Routine 03/08/2020 9:40 PM CDT URINALYSIS REFLEX TO MICROSCOPIC NO CULTURE Routine 03/08/2020 7:08 PM CDT CULTURE BLOOD Timed 03/08/2020 7:04 PM CDT CULTURE BLOOD Timed 03/08/2020 6:45 PM CDT VANCOMYCIN LEVEL TROUGH Timed 03/08/20 8:07 AM CDT C-REACTIVE PROTEIN AM Draw 03/08/2020 2: 23 AM CDT D-DIMER AM Draw 03/08/2020 2:23 AM CDT ERYTHROCYTE SEDIMENTATION RATE AM Draw 03/08/2020 2:23 AM CDT COMPREHENSIVE METABOLIC PANEL Routine 03/08/2020 2:23 AM CDT PHOSPHORUS BLOOD Routine 03/08/2020 2:23 AM CDT MAGNESIUM BLOOD Routine 03/08/2020 2:23 AM CDT LDH BLOOD Routine 03/08/2020 2:23 AM CDT FERRITIN Routine 03/08/2020 2:23 AM CDT CBC W AUTO DIFFERENTIAL Routine 03/08/20 12:23 AM CDT SARS-COV-2 (COVID-19) IN HOUSE Routine 03/07/2020 8:56 PM CDT XR ABDOMEN KUB PORTABLE STAT 03/07/20 12:35 AM CDT Encounter for orogastric (OG) tube placement CBC W AUTO DIFFERENTIAL Routine 03/07/20 12:05 AM CDT COMPREHENSIVE METABOLIC PANEL Routine 03/07/2020 12:05 AM CDT PHOSPHORUS BLOOD Routine 03/07/2020 12:0 5 AM CDT MAGNESIUM BLOOD Routine 03/07/2020 12:05 AM CDT XR ABDOMEN KUB Routine 03/06/2020 10:25 PM CDT Fever, unspecified fever cause BLOOD GASES ARTERIAL Routine 03/06/2020 9:21 PM CDT PTT SLH STAT 03/06/2020 6:16 PM CDT PT-INR SLH STAT 03/06/2020 6:16 PM CDT CBC W AUTO DIFFERENTIAL STAT 03/06/20 20 6:16 PM CDT COMPREHENSIVE METABOLIC PANEL STAT 03/06/2020 6:16 PM CDT PHOSPHORUS BLOOD STAT 03/06/2020 6:16 PM CDT MAGNESIUM BLOOD STAT 03/06/2020 6:16 PM CDT BLOOD GASES ARTERIAL RT STAT 03/06/2020 6:16 PM CDT XR CHEST 1VW PORTABLE STAT 03/06/2020 4:47 PM CDT Abnormal CXR PATHOLOGY TISSUE Routine 03/06/2020 3:46 PM CDT Abnormal CXR FLOW CYTOMETRY BODY FLUID Routine 03/06/2020 3:41 PM CDT Fever, unspecified fever cause CELL COUNT W DIFFERENTIAL FLUID STAT 03/06/2020 3:41 PM CDT Fever, unspecified fever cause CYTOLOGY NON-PIER WORKER PANEL (STL) Routine 03/06/2020 3:41 PM CDT Fever, unspecified fever cause DIFFERENTIAL MANUAL FLUID STAT 03/06/2020 3:41 PM CDT Fever, unspecified fever cause LAB MISC TEST Routine 03/06/2020 3:41 PM CDT CULTURE FUNGUS OTHER+FUNGUS SMEAR Routine 03/06/2020 3:37 PM CDT Fever, unspecified fever cause FUNGAL PLUS PCR PROFILE II Routine 03/06/2020 3:36 PM CDT Fever, unspecified fever cause ASPERGILLUS GALACTOMANNAN BAL/BLOOD Routine 03/06/2020 3:36 PM CDT Fever, unspecified fever cause HHV-6 QUANTITATIVE PCR Routine 0 3:36 PM CDT Fever, unspecified fever cause RESPIRATORY PATHOGEN PANEL BY PCR Routine 03/06/2020 3:36 PM CDT Fever, unspecified fever cause CULTURE BRONCHOALVEOLAR LAVAGE QNT+GRAM STAIN Routine 03/06/2020 3:36 PM CDT Fever, unspecified fever cause ADENOVIRUS PCR QUANTITATIVE (VIRACOR) Routine 03/06/2020 3:36 PM CDT Fever, unspecified fever cause CYTOMEGALOVIRUS DNA RT-PCR QUANT Routine 03/06/2020 3:36 PM CDT Fever, unspecified fever cause CULTURE AFB+SMEAR Routine 03/06/2020 3:3 6 PM CDT Fever, unspecified fever cause SARS-COV-2 (COVID-19) IN HOUSE STAT 03/06/2020 2:45 PM CDT CULTURE BRONCHIAL BRUSHINGS QUANT Routine 03/06/2020 2:45 PM CDT Diffuse large B-cell lymphoma, unspecified body region (HCC) ME DX BRONCHOSCOPE/LAVAGE 03/06/2020 1:51 PM CDT Abnormal CXR BRONCHOSCOPY Routine 03/06/2020 12:40 PM CDT CBC W AUTO DIFFERENTIAL Routine 03/05/20 20 11:53 PM CDT COMPREHENSIVE METABOLIC PANEL Routine 03/05/2020 11:53 PM CDT PHOSPHORUS BLOOD Routine 03/05/2020 11:5 3 PM CDT MAGNESIUM BLOOD Routine 03/05/2020 11:53 PM CDT VANCOMYCIN LEVEL TROUGH Timed 03/05/20 5:33 PM CDT XR CHEST 1VW PORTABLE STAT 03/05/2020 1:44 PM CDT Fever, unspecified Status post autologous bone marrow transplant (HCC) CBC W AUTO DIFFERENTIAL Routine 03/04/20 11:27 PM CDT COMPREHENSIVE METABOLIC PANEL Routine 03/04/2020 11:27 PM CDT PHOSPHORUS BLOOD Routine 03/04/2020 11:2 7 PM CDT MAGNESIUM BLOOD Routine 03/04/2020 11:27 PM CDT SARS-COV-2 (COVID-19) IN HOUSE Routine 03/04/2020 10:45 AM CDT LACTIC ACID BLOOD Routine 03/04/2020 5:5 1 AM CDT CBC W AUTO DIFFERENTIAL Routine 03/03/20 11:45 PM CDT COMPREHENSIVE METABOLIC PANEL Routine 03/03/2020 11:45 PM CDT PHOSPHORUS BLOOD Routine 03/03/2020 11:4 5 PM CDT MAGNESIUM BLOOD Routine 03/03/2020 11:45 PM CDT CULTURE BLOOD STAT 03/03/2020 6:08 PM CDT LEGIONELLA ANTIGEN URINE Routine 03/03/2020 6:04 PM CDT CULTURE BLOOD STAT 03/03/2020 5:59 PM CDT B-TYPE NATRIURETIC PEPTIDE STAT 03/03/2020 5:59 PM CDT VANCOMYCIN LEVEL TROUGH Timed 03/03/20 20 5:59 PM CDT ECHO LIMITED OR FOLLOWUP STAT 03/03/2020 5:49 PM CDT Fever in other diseases VAS BILATERAL VENOUS DUPLEX UE Routine 03/03/2020 3:39 PM CDT Fever in other diseases VAS BILATERAL VENOUS DUPLEX LE Routine 03/03/2020 3:38 PM CDT Fever in other diseases FLOW CYTOMETRY BONE MARROW Routine 03/03/2020 1:45 PM CDT Diffuse large B-cell lymphoma, unspecified body region (HCC) BONE MARROW BIOPSY (STL) Routine 03/03/2020 1:45 PM CDT Diffuse large B-cell lymphoma, unspecified body region (HCC) FISH LYMPHOMA (AGGRESSIVE) PANEL Routine 03/03/2020 1:45 PM CDT Diffuse large B-cell lymphoma, unspecified body region (HCC) CHROMOSOME ANALYSIS BONE MARROW PANEL Routine 03/03/2020 1:45 PM CDT Diffuse large B-cell lymphoma, unspecified body region (HCC) SARS-COV-2 (COVID-19) ANTIBODY IGG Routine 03/03/2020 12:47 PM CDT TROPONIN I Routine 03/03/2020 12:47 PM CDT C-REACTIVE PROTEIN Routine 03/03/2020 12 :47 PM CDT D-DIMER Routine 03/03/2020 12:47 PM CDT FIBRINOGEN ACTIVITY Routine 03/03/2020 1 2:47 PM CDT ERYTHROCYTE SEDIMENTATION RATE Routine 03/03/2020 12:47 PM CDT LDH BLOOD Routine 03/03/2020 12:47 PM CDT VANCOMYCIN LEVEL TROUGH Timed 03/03/20 12:47 PM CDT FERRITIN Routine 03/03/2020 12:47 PM CDT [id number] FUNGITELL BAL/BLOOD Routine 03/03/2020 12:14 AM CDT PNEUMOCYSTIS JIROVECI QUANT PCR Routine 03/03/2020 12:14 AM CDT CBC W AUTO DIFFERENTIAL Routine 03/03/20 12:14 AM CDT COMPREHENSIVE METABOLIC PANEL Routine 03/03/2020 12:14 AM CDT PHOSPHORUS BLOOD Routine 03/03/2020 12:1 4 AM CDT MAGNESIUM BLOOD Routine 03/03/2020 12:[address] CHEST W CONTRAST STAT 03/02/2020 1 0:04 PM CDT Diffuse large B-cell lymphoma, unspecified body region (HCC) Fever in other diseases CULTURE BLOOD Timed 03/02/2020 6:42 PM CDT CULTURE BLOOD Timed 03/02/2020 6:29 PM CDT CBC W AUTO DIFFERENTIAL Routine 03/01/20 11:52 PM CDT COMPREHENSIVE METABOLIC PANEL Routine 03/01/2020 11:52 PM CDT PHOSPHORUS BLOOD Routine 03/01/2020 11:5 2 PM CDT MAGNESIUM BLOOD Routine 03/01/2020 11:52 PM CDT FLOW CYTOMETRY BODY FLUID Routine 03/01/2020 4:18 PM CDT Fever, unspecified fever cause Diffuse large B-cell lymphoma, unspecified body region (HCC) HERPES SIMPLEX 1+2 PCR CSF Routine 03/01/2020 12:41 PM CDT CRYPTOCOCCUS ANTIGEN CSF Routine 03/01/2020 11:16 AM CDT PROTEIN CSF TAMICA 03/01/2020 10:48 AM CDT GLUCOSE CSF Routine 03/01/2020 10:48 AM CDT FL LUMBAR PUNCTURE Routine 03/01/2020 10 :44 AM CDT Diffuse large B-cell lymphoma, unspecified body region (HCC) Headache around the eyes Fever in other diseases DIFFERENTIAL MANUAL FLUID STAT 03/01/2020 10:39 AM CDT OLIGOCLONAL BANDS CSF+BLOOD PANEL Routine 03/01/2020 10:39 AM CDT CELL COUNT W DIFFERENTIAL CSF STAT 03/01/2020 10:39 AM CDT CBC W AUTO DIFFERENTIAL Routine 02/29/20 20 11:34 PM CDT COMPREHENSIVE METABOLIC PANEL Routine 02/29/2020 11:34 PM CDT PHOSPHORUS BLOOD Routine 02/29/2020 11:3 4 PM CDT MAGNESIUM BLOOD Routine 02/29/2020 11:34 PM CDT VANCOMYCIN LEVEL TROUGH Timed 02/29/20 20 7:05 PM CDT CBC W AUTO DIFFERENTIAL Routine 02/29/20 20 12:12 AM CDT COMPREHENSIVE METABOLIC PANEL Routine 02/29/2020 12:12 AM CDT PHOSPHORUS BLOOD Routine 02/29/2020 12:1 2 AM CDT MAGNESIUM BLOOD Routine 02/29/2020 12:12 AM CDT VANCOMYCIN LEVEL TROUGH Timed 02/28/20 5:56 AM CDT ASPERGILLUS GALACTOMANNAN AG BAL/BLOOD Routine 02/28/2020 5:55 AM CDT Fever, unspecified fever cause PT-INR [facility] Routine 02/27/2020 11:49 PM CDT Diffuse large B-cell lymphoma, unspecified body region (HCC) CBC W AUTO DIFFERENTIAL Routine 02/27/20 11:49 PM CDT COMPREHENSIVE METABOLIC PANEL Routine 02/27/2020 11:49 PM CDT PHOSPHORUS BLOOD Routine 02/27/2020 11:4 9 PM CDT MAGNESIUM BLOOD Routine 02/27/2020 11:49 PM CDT SARS-COV-2 (COVID-19) IN HOUSE Routine 02/27/2020 4:41 PM CDT HISTOPLASMA GALACTOMANNAN AG URINE Routine 02/27/2020 4:41 PM CDT Fever, unspecified fever cause FLOW CYTOMETRY T-HELPER CELLS (CD4) COUNT Routine 02/27/2020 3:14 PM CDT Diffuse large B-cell lymphoma, unspecified body region (HCC) BLASTOMYCES ANTIBODY BY ID Routine 02/27/2020 3:14 PM CDT Fever, unspecified fever cause HISTOPLASMA ANTIGEN BLOOD Routine 02/27/2020 3:14 PM CDT Fever, unspecified fever cause PTT SLH Routine 02/27/2020 4:11 AM CDT Fever, unspecified fever cause PT-IN[facility] Routine 02/27/2020 4:11 AM CDT BARTONELLA HENSELAE ANTIBODY IGM Routine 02/27/2020 4:11 AM CDT Fever, unspecified fever cause Diffuse large B-cell lymphoma, unspecified body region (HCC) Headache around the eyes BARTONELLA HENSELAE ANTIBODY IGG Routine 02/27/2020 4:11 AM CDT Fever, unspecified fever cause Diffuse large B-cell lymphoma, unspecified body region (HCC) Headache around the eyes TOXOPLASMA GONDII PCR Routine 02/27/2020 4:11 AM CDT Fever, unspecified fever cause Diffuse large B-cell lymphoma, unspecified body region (HCC) Headache around the eyes TOXOPLASMA GONDII ANTIBODY IGM Routine 02/27/2020 4:11 AM CDT Fever, unspecified fever cause Diffuse large B-cell lymphoma, unspecified body region (HCC) Headache around the eyes TOXOPLASMA GONDII ANTIBODY IGG Routine 02/27/2020 4:11 AM CDT Fever, unspecified fever cause Diffuse large B-cell lymphoma, unspecified body region (HCC) Headache around the eyes CRYPTOCOCCUS ANTIGEN BLOOD Routine 02/27/2020 4:11 AM CDT Fever, unspecified fever cause Diffuse large B-cell lymphoma, unspecified body region (HCC) Headache around the eyes DIFFERENTIAL MANUAL Routine 02/27/2020 4 :11 AM CDT CBC W AUTO DIFFERENTIAL Routine 02/27/20 20 4:11 AM CDT COMPREHENSIVE METABOLIC PANEL Routine 02/27/2020 4:11 AM CDT PHOSPHORUS BLOOD Routine 02/27/2020 4:11 AM CDT MAGNESIUM BLOOD Routine 02/27/2020 4:11 AM CDT MRI BRAIN WWO CONTRAST STAT 0 9:47 PM CDT Fever, unspecified fever cause Diffuse large B-cell lymphoma, unspecified body region (HCC) Headache around the eyes CULTURE BLOOD Timed 02/26/2020 5:11 PM CDT CULTURE BLOOD Timed 02/26/2020 5:05 PM CDT CULTURE BLOOD FUNGUS Timed 02/26/2020 5:05 PM CDT Fever, unspecified fever cause Diffuse large B-cell lymphoma, unspecified body region (HCC) Headache around the eyes CULTURE BLOOD AFB Routine 02/26/2020 5:0 5 PM CDT Fever, unspecified fever cause Diffuse large B-cell lymphoma, unspecified body region (HCC) Headache around the eyes CT CHEST ABDOMEN PELVIS W CONT TAMICA 02/26/2020 4:52 PM CDT Fever, unspecified fever cause Diffuse large B-cell lymphoma, unspecified body region (HCC) CYTOMEGALOVIRUS (CMV) QUANTITATIVE PLASMA Routine 02/26/2020 12:01 PM CDT ISA-JUAN VIRUS QUANT BLOOD STL Routine 02/26/2020 12:01 PM CDT ADENOVIRUS PCR QUANTITATIVE Routine 02/26/2020 12:01 PM CDT IGG BLOOD Routine 02/26/2020 12:01 PM CDT COMPREHENSIVE METABOLIC PANEL STAT 02/26/2020 12:42 AM CDT MAGNESIUM BLOOD STAT 02/26/2020 12:42 AM CDT LDH BLOOD STAT 02/26/2020 12:42 AM CDT URINALYSIS REFLEX TO MICROSCOPIC NO CULTURE Routine 02/26/2020 12:08 AM CDT CULTURE URINE Routine 02/26/2020 12:08 AM CDT CULTURE BLOOD STAT 02/25/2020 10:55 PM CDT SARS-COV-2 (COVID-19) ANTIBODY IGG Routine 02/25/2020 10:52 PM CDT CULTURE BLOOD STAT 02/25/2020 10:52 PM CDT CBC W AUTO DIFFERENTIAL STAT 02/25/20 20 10:52 PM CDT PHOSPHORUS BLOOD STAT 02/25/2020 10:5 2 PM CDT SARS-COV-2 (COVID-19) IN HOUSE Routine 02/25/2020 10:37 PM CDT RESPIRATORY PATHOGEN PANEL BY PCR Routine 02/25/2020 10:37 PM CDT XR CHEST 1VW PORTABLE Routine 02/25/2020 10:04 PM CDT Fever, unspecified fever cause documented in this encounter Results * (ABNORMAL) RBC MORPHOLOGY (04/05/2020 12:04 AM CDT) Platelet Estimate Adequate Adequate 020 2:07 AM CDT [facility] Polychromasia 1+(A) None 04/05/2020 2:07 AM CDT [facility] [place] Bodies 1+(A) None 04/05/2020 2:07 AM CDT [facility] Target Cells 1+(A) None 04/05/2020 2:07 AM CDT [facility] Ovalocytes 1+(A) None 04/05/2020 2:07 AM CDT [facility] Blood BLOOD SPECIMEN / Unknown Lab Venipuncture / Unknown 04/05/2020 12:04 AM CDT 04/05/2020 12:34 AM CDT Asim Ramirez TRANSCRIBING OPERATOR HEAD-SEWING DEMONSTRATOR LAB - HEMATOLOGY ORDERABLES [facility] [address] [place] [address], [facility] [phone] * (ABNORMAL) ERYTHROCYTE SEDIMENTATION RATE (04/05/2020 12:04 AM CDT) Erythrocyte Sedimentation Rate Westergren 82(H) 0 - 15 MM/HR 04/05/2020 1:07 AM CDT [facility] Blood BLOOD SPECIMEN / Unknown Lab Venipuncture / Unknown 04/05/2020 12:04 AM CDT 04/05/2020 12:34 AM CDT Asim Giovanna Ramirez TRANSCRIBING OPERATOR HEAD-SEWING DEMONSTRATOR LAB - HEMATOLOGY ORDERABLES [facility] [address] [place] [address], [facility] [phone] * (ABNORMAL) CBC W AUTO DIFFERENTIAL (04/05/2020 12:04 AM CDT) WBC 10.4 3.5 - 10.5 10? 3 /uL 04/05/2020 12:46 AM [facility] Comment:The WBC count is cor rected by the instrument for nRBC's RBC 3.27(L) 4.30 - 5.70 10? 6 /uL 04/05/2020 12:46 AM [facility] Hemoglobin 9.6(L) 13.5 - 17.5 g/dL 04/05/2020 12:46 AM [facility] Hematocrit 30.1(L) 39.0 - 50.0 % 04/05/2020 12:46 AM [facility] MCV 92.0 81.0 - 97.0 fL 04/05/2020 12:46 AM [facility] MCH 29.4 28.0 - 34.0 pg 04/05/2020 12:46 AM [facility] MCHC 31.9(L) 32.0 - 36.0 g/dL 04/05/2020 12:46 AM [facility] Platelet Count 275 150 - 400 10? 3 /uL 04/05/2020 12:46 AM [facility] RDW-SD 79.8(H) 36.0 - 50.0 fL 04/05/2020 12:46 AM [facility] RDW-CV 24.3(H) 11.2 - 14.8 % 04/05/2020 12:46 AM [facility] MPV 12.9(H) 9.3 - 12.8 fL 04/05/2020 12:46 AM [facility] nRBC Absolute 0.50(H) 0 10? 3 /uL 04/05/2020 12:46 AM [facility] nRBC Auto 4.8(H) 0 /100 WBC 04/05/2020 12:46 AM [facility] Neutrophils % 70.6(H) 35.0 - 70.0 % 04/05/2020 12:46 AM [facility] Lymphocytes % 13.7(L) 19.7 - 55.1 % 04/05/2020 12:46 AM [facility] Monocytes % 9.1 3.0 - 15.0 % 04/05/2020 12:46 AM [facility] Eosinophils % 2.8 0.0 - 6.0 % 04/05/2020 12:46 AM [facility] Basophil % 0.5 0.0 - 1.5 % 04/05/2020 12:46 AM [facility] Neutrophils Absolute 7.4(H) 1.6 - 7.0 10? 3 /uL 04/05/2020 12:46 AM [facility] Lymphocyte Absolute 1.4 0.8 - 2.9 10? 3 /uL 04/05/2020 12:46 AM [facility] Monocytes Absolute 0.95(H) 0.14 - 0.66 10? 3 /uL 04/05/2020 12:46 AM [facility] Eosinophils Absolute 0.29 0.00 - 0.45 10? 3 /uL 04/05/2020 12:46 AM [facility] Basophils Absolute 0.05 0.00 - 0.06 10? 3 /uL 04/05/2020 12:46 AM [facility] Immature Granulocytes % 3.3(H) 0.0 - 1.0 % 04/05/2020 12:46 AM [facility] Blood BLOOD SPECIMEN / Unknown Lab Venipuncture / Unknown 04/05/2020 12:04 AM CDT 04/05/2020 12:34 AM CDT Asim Ramirez TRANSCRIBING OPERATOR HEAD-SEWING DEMONSTRATOR LAB - HEMATOLOGY ORDERABLES [facility] [address] [place] [address], [facility] [phone] * PHOSPHORUS BLOOD (04/05/2020 12:03 AM CDT) Phosphorus 3.5 2.3 - 4.7 mg/dL 04/05/2020 12:41 AM CDT [facility] Blood BLOOD SPECIMEN / Unknown Lab Venipuncture / Unknown 04/05/2020 12:03 AM CDT 04/05/2020 12:14 AM CDT Asim Ramirez TRANSCRIBING OPERATOR [employer]-SEWING DEMONSTRATOR LAB - CHEMISTRY ORDERABLES [address] [address], [facility] [phone] * MAGNESIUM BLOOD (04/05/2020 12:03 AM CDT) Pathologist [facility] [place] Magnesium 1.9 1.6 - 2.6 mg/dL 04/05/2020 12:41 AM CDT [facility] Blood BLOOD SPECIMEN / Unknown Lab Venipuncture / Unknown 04/05/2020 12:03 AM CDT 04/05/2020 12:14 AM CDT Asim Ramirez APRN-SEWING DEMONSTRATOR LAB - CHEMISTRY ORDERABLES Performing Organization Address City/[facility]/ZIP Co de Phone Number [address] [address], [place] [phone] * (ABNORMAL) LDH BLOOD (04/05/2020 12:03 AM CDT) Pathologist [facility] [place] LDH Total 349(H) 125 - 243 Units/L 04/05/2020 12:41 AM CDT [facility] Blood BLOOD SPECIMEN / Unknown Lab Venipuncture / Unknown 04/05/2020 12:03 AM CDT 04/05/2020 12:14 AM CDT Asim Ramirez TRANSCRIBING OPERATOR [employer]-SEWING DEMONSTRATOR LAB - CHEMISTRY ORDERABLES [address] [address], [place] [phone] * (ABNORMAL) FERRITIN (04/05/2020 12:03 AM CDT) Pathologist [facility] [place] Ferritin 451(H) 22 - 275 ng/mL 04/05/2020 2:45 AM CDT [facility] Blood BLOOD SPECIMEN / Unknown Lab Venipuncture / Unknown 04/05/2020 12:03 AM CDT 04/05/2020 1:13 AM CDT Asim Ramirez TRANSCRIBING OPERATOR HEAD-SEWING DEMONSTRATOR LAB - CHEMISTRY ORDERABLES Performing Organization Address [facility] Co de Phone Number [facility] [address] [place] [address], [facility] [phone] * (ABNORMAL) D-DIMER (04/05/2020 12:03 AM CDT) [facility] D-Dimer Quantitative 0.52(H) <=0.50 mcg/mL FEU 04/05/2020 1:11 AM CDT [facility] Comment: In the absence of clinical [...] Haematol. 145:24-33,2009. Blood BLOOD SPECIMEN / Unknown Lab Venipuncture / Unknown 04/05/2020 12:03 AM CDT 04/05/2020 12:57 AM CDT Asim Ramirez TRANSCRIBING OPERATOR HEAD-SEWING DEMONSTRATOR LAB - COAGULATIO N ORDERABLES [facility] [address] [place] [address], [facility] [phone] * (ABNORMAL) COMPREHENSIVE METABOLIC PANEL (04/05/2020 12:03 AM CDT) BUN 18 7 - 26 mg/dL 04/05/2020 12:41 AM [facility] Creatinine 0.8 0.6 - 1.2 mg/dL 04/05/2020 12:41 AM [facility] Sodium 139 136 - 145 mmol/L 04/05/2020 12:41 AM [facility] Potassium 3.8 3.5 - 4.5 mmol/L 04/05/2020 12:41 AM [facility] Chloride 102 98 - 107 mmol/L 04/05/2020 12:41 AM [facility] CO2 31(H) 22 - 29 mmol/L 04/05/2020 12:41 AM [facility] Glucose 120(H) 70 - 115 mg/dL 04/05/2020 12:41 AM [facility] Calcium 8.8 8.4 - 10.2 mg/dL 04/05/2020 12:41 AM [facility] Protein Total 6.1 6.0 - 8.3 g/dL 04/05/2020 12:41 AM [facility] Albumin 2.4(L) 3.4 - 5.0 g/dL 04/05/2020 12:41 AM [facility] Bilirubin Total 0.2 0.2 - 1.2 mg/dL 04/05/2020 12:41 AM [facility] Alkaline Phosphatase 104 40 - 150 Units/L 04/05/2020 12:41 AM [facility] ALT 44 0 - 55 Units/L 04/05/2020 12:41 AM [facility] AST 18 5 - 34 Units/L 04/05/2020 12:41 AM [facility] Anion Gap 10 8 - 18 04/05/2020 12:41 AM CDT [facility] BUN/Creatinine Ratio 23 7 - 23 04/05/2020 12:41 AM CDT [facility] Osmolality Calculated 291 270 - 300 mOsm/kg 04/05/2020 12:41 AM T [facility] Albumin/Globulin Ratio 0.6(L) 1.1 - 2.3 04/05/2020 12:41 AM T [facility] eGFR >60 >60 mL/min/1.7 3 m2 04/05/2020 12:41 AM CDT [facility] Blood BLOOD SPECIMEN / Unknown Lab Venipuncture / Unknown 04/05/2020 12:03 AM CDT 04/05/2020 12:14 AM CDT Asim Ramirez [facility] LAB - CHEMISTRY ORDERABLES Performing Organization Address [facility]/ZIP Co de Phone Number [address] [address], [facility] [phone] * (ABNORMAL) C-REACTIVE PROTEIN (04/05/2020 12:03 AM CDT) C-Reactive Protein 2.5(H) <=0.5 mg/dL 04/05/2020 2:25 AM CDT [facility] Blood BLOOD SPECIMEN / Unknown Lab Venipuncture / Unknown 04/05/2020 12:03 AM CDT 04/05/2020 1:13 AM CDT Asim Ramirez [facility] LAB - CHEMISTRY ORDERABLES [address] [address], [facility] [phone] * (ABNORMAL) RBC MORPHOLOGY (04/03/2020 5:33 AM CDT) Platelet Estimate Adequate Adequate 020 11:35 AM T [facility] Anisocytosis 1+(A) None 04/03/2020 11:35 AM CDT [facility] Microcytes 1+(A) None 04/03/2020 11:35 AM CDT [facility] Macrocytosis Occasional( A) None 04/03/2020 11:35 AM CDT [facility] Polychromasia 1+(A) None 04/03/2020 11:35 AM CDT [facility] Target Cells 1+(A) None 04/03/2020 11:35 AM CDT [facility] Ovalocytes 1+(A) None 04/03/2020 11:35 AM CDT [facility] Large Platelet Count 1+(A) None 04/03/2020 11:35 AM CDT [facility] Blood BLOOD SPECIMEN / Unknown Lab Venipuncture / Unknown 04/03/2020 5:33 AM CDT 04/03/2020 6:56 AM CDT Asim Ramirez APRN-SEWING DEMONSTRATOR LAB - HEMATOLOGY ORDERABLES [address] [address], [facility] [phone] * PHOSPHORUS BLOOD (04/03/2020 5:33 AM CDT) Phosphorus 4.6 2.3 - 4.7 mg/dL 04/03/2020 7:15 AM CDT [facility] Blood BLOOD SPECIMEN / Unknown Lab Venipuncture / Unknown 04/03/2020 5:33 AM CDT 04/03/2020 7:15 AM CDT Asim Ramirez [facility] LAB - CHEMISTRY ORDERABLES [address] [address], [facility] [phone] * MAGNESIUM BLOOD (04/03/2020 5:33 AM CDT) Magnesium 1.9 1.6 - 2.6 mg/dL 04/03/2020 7:15 AM CDT [facility] Blood BLOOD SPECIMEN / Unknown Lab Venipuncture / Unknown 04/03/2020 5:33 AM CDT 04/03/2020 7:15 AM CDT Asim A James TRANSCRIBING OPERATOR HEAD-SEWING DEMONSTRATOR LAB - CHEMISTRY ORDERABLES [facility] [address] [place] [address], [place] [phone] * (ABNORMAL) LDH BLOOD (04/03/2020 5:33 AM CDT) LDH Total 372(H) 125 - 243 Units/L 04/03/2020 7:15 AM CDT [facility] Blood BLOOD SPECIMEN / Unknown Lab Venipuncture / Unknown 04/03/2020 5:33 AM CDT 04/03/2020 7:15 AM CDT Asim Ramirez TRANSCRIBING OPERATOR [employer]SEWING DEMONSTRATOR LAB - CHEMISTRY ORDERABLES [address] [address], [place] [phone] * (ABNORMAL) FERRITIN (04/03/2020 5:33 AM CDT) Ferritin 467(H) 22 - 275 ng/mL 04/03/2020 8:18 AM CDT [facility] Blood BLOOD SPECIMEN / Unknown Lab Venipuncture / Unknown 04/03/2020 5:33 AM CDT 04/03/2020 6:39 AM CDT Asim Ramirez APRN-SEWING DEMONSTRATOR LAB - CHEMISTRY ORDERABLES [address] [address], [place] [phone] * (ABNORMAL) ERYTHROCYTE SEDIMENTATION RATE (04/03/2020 5:33 AM CDT) Erythrocyte Sedimentation Rate Westergren 88(H) 0 - 15 MM/HR 04/03/2020 8:07 AM CDT [facility] Blood BLOOD SPECIMEN / Unknown Lab Venipuncture / Unknown 04/03/2020 5:33 AM CDT 04/03/2020 6:56 AM CDT Asim Ramirez TRANSCRIBING OPERATOR HEAD-SEWING DEMONSTRATOR LAB - HEMATOLOGY ORDERABLES [facility] [address] [place] [address], [facility] [phone] * (ABNORMAL) D-DIMER (04/03/2020 5:33 AM CDT) D-Dimer Quantitative 0.70(H) <=0.50 mcg/mL FEU 04/03/2020 6:57 AM CDT [facility] Comment: In the absence of clinical symptoms, [...] Haematol. 145:24-33,2009. Blood BLOOD SPECIMEN / Unknown Lab Venipuncture / Unknown 04/03/2020 5:33 AM CDT 04/03/2020 6:45 AM CDT Asim Ramirez TRANSCRIBING OPERATOR HEAD-SEWING DEMONSTRATOR LAB - COAGULATIO N ORDERABLES [place] [address] [place] [address], [place] [phone] * (ABNORMAL) COMPREHENSIVE METABOLIC PANEL (04/03/2020 5:33 AM [facility]) BUN 18 7 - 26 mg/dL 04/03/2020 7:15 AM [facility] Creatinine 0.8 0.6 - 1.2 mg/dL 04/03/2020 7:15 AM [facility] Sodium 141 136 - 145 mmol/L 04/03/2020 7:15 AM [facility] Potassium 4.0 3.5 - 4.5 mmol/L 04/03/2020 7:15 AM [facility] Chloride 100 98 - 107 mmol/L 04/03/2020 7:15 AM [facility] CO2 32(H) 22 - 29 mmol/L 04/03/2020 7:15 AM [facility] Glucose 78 70 - 115 mg/dL 04/03/2020 7:15 AM [facility] Calcium 9.4 8.4 - 10.2 mg/dL 04/03/2020 7:15 AM [facility] Protein Total 5.7(L) 6.0 - 8.3 g/dL 04/03/2020 7:15 AM [facility] Albumin 2.6(L) 3.4 - 5.0 g/dL 04/03/2020 7:15 AM [facility] Bilirubin Total 0.3 0.2 - 1.2 mg/dL 04/03/2020 7:15 AM [facility] Alkaline Phosphatase 105 40 - 150 Units/L 04/03/2020 7:15 AM [facility] ALT 51 0 - 55 Units/L 04/03/2020 7:15 AM [facility] AST 16 5 - 34 Units/L 04/03/2020 7:15 AM [facility] Anion Gap 13 8 - 18 04/03/2020 7:15 AM [facility] BUN/Creatinine Ratio 23 7 - 23 04/03/2020 7:15 AM [facility] Osmolality Calculated 293 270 - 300 mOsm/kg 04/03/2020 7:15 AM [facility] Albumin/Globulin Ratio 0.8(L) 1.1 - 2.3 04/03/2020 7:15 AM [facility] eGFR >60 >60 mL/min/1.7 3 m2 04/03/2020 7:15 AM [facility] Blood BLOOD SPECIMEN / Unknown Lab Venipuncture / Unknown 04/03/2020 5:33 AM CDT 04/03/2020 7:15 AM CDT Asim Ramirez TRANSCRIBING OPERATOR HEAD-SEWING DEMONSTRATOR LAB - CHEMISTRY ORDERABLES Performing Organization Address [facility] Co de Phone Number [facility] [address] [place] [address], [facility] [phone] * (ABNORMAL) CBC W AUTO DIFFERENTIAL (04/03/2020 5:33 AM CDT) WBC 11.4(H) 3.5 - 10.5 10? 3 /uL 04/03/2020 7:41 AM [facility] Comment:The WBC count is cor rected by the instrument for nRBC's RBC 3.54(L) 4.30 - 5.70 10? 6 /uL 04/03/2020 7:41 AM [facility] Hemoglobin 10.5(L) 13.5 - 17.5 g/dL 04/03/2020 7:41 AM [facility] Hematocrit 32.5(L) 39.0 - 50.0 % 04/03/2020 7:41 AM [facility] MCV 91.8 81.0 - 97.0 fL 04/03/2020 7:41 AM [facility] MCH 29.7 28.0 - 34.0 pg 04/03/2020 7:41 AM [facility] MCHC 32.3 32.0 - 36.0 g/dL 04/03/2020 7:41 AM [facility] Platelet Count 276 150 - 400 10? 3 /uL 04/03/2020 7:41 AM [facility] RDW-SD 79.7(H) 36.0 - 50.0 fL 04/03/2020 7:41 AM [facility] RDW-CV 24.4(H) 11.2 - 14.8 % 04/03/2020 7:41 AM [facility] MPV 12.3 9.3 - 12.8 fL 04/03/2020 7:41 AM [facility] nRBC Absolute 0.52(H) 0 10? 3 /uL 04/03/2020 7:41 AM [facility] nRBC Auto 4.5(H) 0 /100 WBC 04/03/2020 7:41 AM [facility] Neutrophils % 72.3(H) 35.0 - 70.0 % 04/03/2020 7:41 AM [facility] Lymphocytes % 13.7(L) 19.7 - 55.1 % 04/03/2020 7:41 AM [facility] Monocytes % 8.9 3.0 - 15.0 % 04/03/2020 7:41 AM [facility] Eosinophils % 2.0 0.0 - 6.0 % 04/03/2020 7:41 AM [facility] Basophil % 0.5 0.0 - 1.5 % 04/03/2020 7:41 AM [facility] Neutrophils Absolute 8.3(H) 1.6 - 7.0 10? 3 /uL 04/03/2020 7:41 AM [facility] Lymphocyte Absolute 1.6 0.8 - 2.9 10? 3 /uL 04/03/2020 7:41 AM [facility] Monocytes Absolute 1.02(H) 0.14 - 0.66 10? 3 /uL 04/03/2020 7:41 AM [facility] Eosinophils Absolute 0.23 0.00 - 0.45 10? 3 /uL 04/03/2020 7:41 AM [facility] Basophils Absolute 0.06 0.00 - 0.06 10? 3 /uL 04/03/2020 7:41 AM [facility] Immature Granulocytes % 2.6(H) 0.0 - 1.0 % 04/03/2020 7:41 AM [facility] Blood BLOOD SPECIMEN / Unknown Lab Venipuncture / Unknown 04/03/2020 5:33 AM CDT 04/03/2020 6:56 AM T Asim Ramirez TRANSCRIBING OPERATOR HEAD-SEWING DEMONSTRATOR LAB - HEMATOLOGY ORDERABLES [facility] [address] [place] [address], [facility] [phone] * (ABNORMAL) C-REACTIVE PROTEIN (04/03/2020 5:33 AM CDT) C-Reactive Protein 1.7(H) <=0.5 mg/dL 04/03/2020 8:18 AM CDT [facility] Blood BLOOD SPECIMEN / Unknown Lab Venipuncture / Unknown 04/03/2020 5:33 AM CDT 04/03/2020 6:39 AM CDT Asim Ramirez TRANSCRIBING OPERATOR HEAD-SEWING DEMONSTRATOR LAB - CHEMISTRY ORDERABLES [address] [address], [place] [phone] * (ABNORMAL) IGG BLOOD (04/03/2020 5:33 AM CDT) IgG 340(L) 540-1,822 mg/dL 04/03/2020 8:25 AM CDT [facility] Blood BLOOD SPECIMEN / Unknown Lab Venipuncture / Unknown 04/03/2020 5:33 AM CDT 04/03/2020 6:39 AM CDT Asim Ramirez APRN-SEWING DEMONSTRATOR LAB - CHEMISTRY ORDERABLES Performing Organization Address City/[facility]/ZIP Co de Phone Number [address] [address], [place] [phone] * PHOSPHORUS BLOOD (03/31/2020 12:40 AM CDT) Phosphorus 4.0 2.3 - 4.7 mg/dL 03/31/2020 1:17 AM CDT [facility] Blood BLOOD SPECIMEN / Unknown Lab Venipuncture / Unknown 03/31/2020 12:40 AM CDT 03/31/2020 12:50 AM CDT Asim Ramirez TRANSCRIBING OPERATOR HEAD-SEWING DEMONSTRATOR LAB - CHEMISTRY ORDERABLES [place] [id number] [place] [address], [place] [phone] * MAGNESIUM BLOOD (03/31/2020 12:40 AM CDT) Pathologist [facility] [place] Magnesium 1.9 1.6 - 2.6 mg/dL 03/31/2020 1:19 AM CDT [facility] Blood BLOOD SPECIMEN / Unknown Lab Venipuncture / Unknown 03/31/2020 12:40 AM CDT 03/31/2020 12:50 AM CDT Asim Ramirez TRANSCRIBING OPERATOR [employer] LAB - CHEMISTRY ORDERABLES Performing Organization Address City/[facility]/ZIP Co de Phone Number [address] [address], [place] [phone] * (ABNORMAL) LDH BLOOD (03/31/2020 12:40 AM CDT) [facility] LDH Total 450(H) 125 - 243 Units/L 03/31/2020 1:18 AM CDT [facility] Blood BLOOD SPECIMEN / Unknown Lab Venipuncture / Unknown 03/31/2020 12:40 AM CDT 03/31/2020 12:50 AM CDT Asim Ramirez TRANSCRIBING OPERATOR HEAD-SEWING DEMONSTRATOR LAB - CHEMISTRY ORDERABLES Performing Organization Address City/[facility]/ZIP Co de Phone Number [address] [address], [place] [phone] * (ABNORMAL) COMPREHENSIVE METABOLIC PANEL (03/31/2020 12:40 AM CDT) Pathologist [facility] [place] BUN 21 7 - 26 mg/dL 03/31/2020 1:20 AM CDT [facility] Creatinine 0.9 0.6 - 1.2 mg/dL 03/31/2020 1:20 AM CDT [facility] Sodium 143 136 - 145 mmol/L 03/31/2020 1:20 AM CDT [facility] Potassium 4.2 3.5 - 4.5 mmol/L 03/31/2020 1:20 AM T [facility] Chloride 102 98 - 107 mmol/L 03/31/2020 1:20 AM [facility] CO2 28 22 - 29 mmol/L 03/31/2020 1:20 AM [facility] Glucose 109 70 - 115 mg/dL 03/31/2020 1:20 AM [facility] Calcium 8.6 8.4 - 10.2 mg/dL 03/31/2020 1:20 AM [facility] Protein Total 5.6(L) 6.0 - 8.3 g/dL 03/31/2020 1:20 AM [facility] Albumin 2.5(L) 3.4 - 5.0 g/dL 03/31/2020 1:20 AM [facility] Bilirubin Total 0.2 0.2 - 1.2 mg/dL 03/31/2020 1:20 AM [facility] Alkaline Phosphatase 103 40 - 150 Units/L 03/31/2020 1:20 AM [facility] ALT 56(H) 0 - 55 Units/L 03/31/2020 1:20 AM [facility] AST 22 5 - 34 Units/L 03/31/2020 1:20 AM [facility] Anion Gap 17 8 - 18 03/31/2020 1:20 AM [facility] BUN/Creatinine Ratio 23 7 - 23 03/31/2020 1:20 AM [facility] Osmolality Calculated 300 270 - 300 mOsm/kg 03/31/2020 1:20 AM [facility] Albumin/Globulin Ratio 0.8(L) 1.1 - 2.3 03/31/2020 1:20 AM [facility] eGFR >60 >60 mL/min/1.7 3 m2 03/31/2020 1:20 AM [facility] Blood BLOOD SPECIMEN / Unknown Lab Venipuncture / Unknown 03/31/2020 12:40 AM CDT 03/31/2020 12:50 AM T Asim Ramirez TRANSCRIBING OPERATOR HEAD-SEWING DEMONSTRATOR LAB - CHEMISTRY ORDERABLES [facility] [address] [place] [address], [facility] [phone] * D-DIMER (03/31/2020 12:37 AM CDT) D-Dimer Quantitative 0.27 <=0.50 mcg/mL FEU 03/31/2020 12:49 AM CDT [facility] Comment: In the absence [...] Haematol. 145:24-33,2009. Blood BLOOD SPECIMEN / Unknown Lab Venipuncture / Unknown 03/31/2020 12:37 AM CDT 03/31/2020 12:37 AM CDT Asim Ramirez TRANSCRIBING OPERATOR [facility] - COAGULATIO N ORDERABLES [facility] [address] [place] [id number], [facility] [phone] * (ABNORMAL) RBC MORPHOLOGY (03/31/2020 12:20 AM CDT) Anisocytosis 1+(A) None 03/31/2020 2:51 AM CDT [facility] Polychromasia Occasional (A) None 03/31/2020 2:51 AM CDT [facility] Target Cells 1+(A) None 03/31/2020 2:51 AM T [facility] Schistocytes Occasional (A) None 03/31/2020 2:51 AM T [facility] Blood BLOOD SPECIMEN / Unknown 03/31/2020 12:20 AM CDT 03/31/2020 12:26 AM CDT Aism Ramirez TRANSCRIBING OPERATOR [facility] - HEMATOLOGY ORDERABLES [address] [address], [facility] [phone] * (ABNORMAL) ERYTHROCYTE SEDIMENTATION RATE (03/31/2020 12:20 AM CDT) Erythrocyte Sedimentation Rate Westergren 77(H) 0 - 15 MM/HR 03/31/2020 12:41 AM T [facility] Blood BLOOD SPECIMEN / Unknown 03/31/2020 12:20 AM CDT 03/31/2020 12:26 AM CDT Asim Ramirez [facility] - HEMATOLOGY ORDERABLES Performing Organization Address [facility]/ZIP Co de Phone Number [address] [address], [facility] [phone] * (ABNORMAL) CBC W AUTO DIFFERENTIAL (03/31/2020 12:20 AM CDT) WBC 12.1(H) 3.5 - 10.5 10? 3 /uL 03/31/2020 12:27 AM [facility] Comment:The WBC count is cor rected by the instrument for nRBC's RBC 3.44(L) 4.30 - 5.70 10? 6 /uL 03/31/2020 12:27 AM [facility] Hemoglobin 10.2(L) 13.5 - 17.5 g/dL 03/31/2020 12:27 AM [facility] Hematocrit 30.7(L) 39.0 - 50.0 % 03/31/2020 12:27 AM [facility] MCV 89.2 81.0 - 97.0 fL 03/31/2020 12:27 AM [facility] MCH 29.7 28.0 - 34.0 pg 03/31/2020 12:27 AM [facility] MCHC 33.2 32.0 - 36.0 g/dL 03/31/2020 12:27 AM [facility] Platelet Count 238 150 - 400 10? 3 /uL 03/31/2020 12:27 AM [facility] RDW-SD 75.8(H) 36.0 - 50.0 fL 03/31/2020 12:27 AM [facility] RDW-CV 24.3(H) 11.2 - 14.8 % 03/31/2020 12:27 AM [facility] MPV 12.5 9.3 - 12.8 fL 03/31/2020 12:27 AM [facility] nRBC Absolute 0.79(H) 0 10? 3 /uL 03/31/2020 12:27 AM [facility] nRBC Auto 6.5(H) 0 /100 WBC 03/31/2020 12:27 AM [facility] Neutrophils % 76.3(H) 35.0 - 70.0 % 03/31/2020 12:27 AM [facility] Lymphocytes % 15.0(L) 19.7 - 55.1 % 03/31/2020 12:27 AM [facility] Monocytes % 5.3 3.0 - 15.0 % 03/31/2020 12:27 AM [facility] Eosinophils % 1.1 0.0 - 6.0 % 03/31/2020 12:27 AM [facility] Basophil % 0.3 0.0 - 1.5 % 03/31/2020 12:27 AM [facility] Neutrophils Absolute 9.2(H) 1.6 - 7.0 10? 3 /uL 03/31/2020 12:27 AM [facility] Lymphocyte Absolute 1.8 0.8 - 2.9 10? 3 /uL 03/31/2020 12:27 AM [facility] Monocytes Absolute 0.64 0.14 - 0.66 10? 3 /uL 03/31/2020 12:27 AM CDT [facility] Eosinophils Absolute 0.13 0.00 - 0.45 10? 3 /uL 03/31/2020 12:27 AM CDT [facility] Basophils Absolute 0.04 0.00 - 0.06 10? 3 /uL 03/31/2020 12:27 AM CDT [facility] Immature Granulocytes % 2.0(H) 0.0 - 1.0 % 03/31/2020 12:27 AM CDT [facility] Blood BLOOD SPECIMEN / Unknown 03/31/2020 12:20 AM CDT 03/31/2020 12:26 AM CDT Asim Ramirez APRN-SEWING DEMONSTRATOR LAB - HEMATOLOGY ORDERABLES [facility] [address] [place] [address], [facility] [phone] * (ABNORMAL) FERRITIN (03/31/2020 12:00 AM CDT) Ferritin 518(H) 22 - 275 ng/mL 03/31/2020 2:06 AM CDT [facility] Blood BLOOD SPECIMEN / Unknown Lab Venipuncture / Unknown 03/31/2020 03/31/2020 1:18 AM CDT Asim Ramirez APRN-SEWING DEMONSTRATOR LAB - CHEMISTRY ORDERABLES Performing Organization Address [facility]/ZIP Co de Phone Number [address] [address], [place] [phone] * (ABNORMAL) C-REACTIVE PROTEIN (03/31/2020 12:00 AM CDT) C-Reactive Protein 2.9(H) <=0.5 mg/dL 03/31/2020 2:02 AM CDT [facility] Blood BLOOD SPECIMEN / Unknown Lab Venipuncture / Unknown 03/31/2020 03/31/2020 1:18 AM CDT Asim Ramirez TRANSCRIBING OPERATOR HEAD-SEWING DEMONSTRATOR LAB - CHEMISTRY ORDERABLES [facility] [address] [facility] [place] [address], [facility] [phone] * (ABNORMAL) SARS-COV-2 (COVID-19) IN HOUSE (03/29/2020 9:15 PM CDT) COVID-19 PCR Detected( AA) Not detected, Invalid 03/30/2020 9:42 AM CDT [facility] MICROBIOLOGY Microbiology SPECIMEN FROM NASOPHARYNGEAL STRUCTURE / Unknown Collection / Unknown 03/29/2020 9:15 PM CDT 03/29/2020 9:21 PM CDT Narrative [facility] MICROBIOLOGY - 03/30/2020 9:42 AM CDT This nucleic acid amplification assay performance was validated by [facility] Microbiology Laboratory. This test has been [...] the authorization is terminated or revoked sooner. Keli Case TRANSCRIBING OPERATOR HEAD-SEWING DEMONSTRATOR LAB - MICROBIOLOG Y ORDERABLES [facility] MICROBIOLOGY [address] [place] [address], [facility] [phone] * (ABNORMAL) RBC MORPHOLOGY (03/29/2020 12:24 AM CDT) Anisocytosis 1+(A) None 03/29/2020 2:08 AM CDT [facility] Microcytes Occasional (A) None 03/29/2020 2:08 AM CDT [facility] Macrocytosis 1+(A) None 03/29/2020 2:08 AM CDT [facility] Polychromasia 1+(A) None 03/29/2020 2:08 AM CDT [facility] Target Cells 1+(A) None 03/29/2020 2:08 AM CDT [facility] Blood BLOOD SPECIMEN / Unknown Lab Venipuncture / Unknown 03/29/2020 12:24 AM CDT 03/29/2020 12:35 AM CDT Asim Ramirez TRANSCRIBING OPERATOR HEAD-SEWING DEMONSTRATOR LAB - HEMATOLOGY ORDERABLES [address], [facility] [phone] * PHOSPHORUS BLOOD (03/29/2020 12:24 AM CDT) Phosphorus 4.4 2.3 - 4.7 mg/dL 03/29/2020 12:58 AM CDT [facility] Blood BLOOD SPECIMEN / Unknown Lab Venipuncture / Unknown 03/29/2020 12:24 AM CDT 03/29/2020 12:35 AM CDT Asim Ramirez APRN-SEWING DEMONSTRATOR LAB - CHEMISTRY ORDERABLES [place] [phone], [facility] [phone] * MAGNESIUM BLOOD (03/29/2020 12:24 AM CDT) Magnesium 2.0 1.6 - 2.6 mg/dL 03/29/2020 12:58 AM CDT [facility] Blood BLOOD SPECIMEN / Unknown Lab Venipuncture / Unknown 03/29/2020 12:24 AM CDT 03/29/2020 12:35 AM CDT Asim Ramirez TRANSCRIBING OPERATOR HEAD-SEWING DEMONSTRATOR LAB - CHEMISTRY ORDERABLES [address] [address], [facility] [phone] * (ABNORMAL) LDH BLOOD (03/29/2020 12:24 AM CDT) LDH Total 428(H) 125 - 243 Units/L 03/29/2020 12:58 AM CDT [facility] Blood BLOOD SPECIMEN / Unknown Lab Venipuncture / Unknown 03/29/2020 12:24 AM CDT 03/29/2020 12:35 AM CDT Asim Ramirez TRANSCRIBING OPERATOR HEAD-SEWING DEMONSTRATOR LAB - CHEMISTRY ORDERABLES [address] [address], [facility] [phone] * (ABNORMAL) FERRITIN (03/29/2020 12:24 AM CDT) Pathologist [facility] [place] Ferritin 626(H) 22 - 275 ng/mL 03/29/2020 1:23 AM CDT [facility] Blood BLOOD SPECIMEN / Unknown Lab Venipuncture / Unknown 03/29/2020 12:24 AM CDT 03/29/2020 12:35 AM CDT Asim Ramirez APRN-SEWING DEMONSTRATOR LAB - CHEMISTRY ORDERABLES [address] [address], [facility] [phone] * (ABNORMAL) ERYTHROCYTE SEDIMENTATION RATE (03/29/2020 12:24 AM CDT) Pathologist [facility] [place] Erythrocyte Sedimentation Rate Westergren 74(H) 0 - 15 MM/HR 03/29/2020 1:00 AM CDT [facility] Blood BLOOD SPECIMEN / Unknown Lab Venipuncture / Unknown 03/29/2020 12:24 AM CDT 03/29/2020 12:35 AM CDT Asim Ramirez TRANSCRIBING OPERATOR HEAD-SEWING DEMONSTRATOR LAB - HEMATOLOGY ORDERABLES [address] [address], [facility] [phone] * (ABNORMAL) D-DIMER (03/29/2020 12:24 AM CDT) D-Dimer Quantitative 0.57(H) <=0.50 mcg/mL FEU 03/29/2020 12:58 AM CDT [facility] Comment: In the absence [...] Haematol. 145:24-33,2009. Blood BLOOD SPECIMEN / Unknown Lab Venipuncture / Unknown 03/29/2020 12:24 AM CDT 03/29/2020 12:35 AM CDT Asim Ramirez TRANSCRIBING OPERATOR HEAD-SEWING DEMONSTRATOR LAB - COAGULATIO N ORDERABLES [address] [address], [facility] [phone] * (ABNORMAL) COMPREHENSIVE METABOLIC PANEL (03/29/2020 12:24 AM CDT) BUN 19 7 - 26 mg/dL 03/29/2020 12:58 AM [facility] Creatinine 0.8 0.6 - 1.2 mg/dL 03/29/2020 12:58 AM [facility] Sodium 141 136 - 145 mmol/L 03/29/2020 12:58 AM [facility] Potassium 4.4 3.5 - 4.5 mmol/L 03/29/2020 12:58 AM [facility] Chloride 99 98 - 107 mmol/L 03/29/2020 12:58 AM [facility] CO2 30(H) 22 - 29 mmol/L 03/29/2020 12:58 AM [facility] Glucose 108 70 - 115 mg/dL 03/29/2020 12:58 AM [facility] Calcium 8.6 8.4 - 10.2 mg/dL 03/29/2020 12:58 AM [facility] Protein Total 5.8(L) 6.0 - 8.3 g/dL 03/29/2020 12:58 AM [facility] Albumin 2.6(L) 3.4 - 5.0 g/dL 03/29/2020 12:58 AM [facility] Bilirubin Total 0.2 0.2 - 1.2 mg/dL 03/29/2020 12:58 AM [facility] Alkaline Phosphatase 103 40 - 150 Units/L 03/29/2020 12:58 AM [facility] ALT 74(H) 0 - 55 Units/L 03/29/2020 12:58 AM [facility] AST 26 5 - 34 Units/L 03/29/2020 12:58 AM [facility] Anion Gap 16 8 - 18 03/29/2020 12:58 AM [facility] BUN/Creatinine Ratio 24(H) 7 - 23 03/29/2020 12:58 AM [facility] Osmolality Calculated 295 270 - 300 mOsm/kg 03/29/2020 12:58 AM [facility] Albumin/Globulin Ratio 0.8(L) 1.1 - 2.3 03/29/2020 12:58 AM [facility] eGFR >60 >60 mL/min/1.7 3 m2 03/29/2020 12:58 AM [facility] Blood BLOOD SPECIMEN / Unknown Lab Venipuncture / Unknown 03/29/2020 12:24 AM CDT 03/29/2020 12:35 AM CDT Asim Ramirez TRANSCRIBING OPERATOR HEAD-SEWING DEMONSTRATOR LAB - CHEMISTRY ORDERABLES [address] [address], [facility] [phone] * (ABNORMAL) CBC W AUTO DIFFERENTIAL (03/29/2020 12:24 AM CDT) WBC 12.7(H) 3.5 - 10.5 10? 3 /uL 03/29/2020 12:55 AM [facility] Comment:The WBC count is cor rected by the instrument for nRBC's RBC 3.50(L) 4.30 - 5.70 10? 6 /uL 03/29/2020 12:55 AM [facility] Hemoglobin 10.3(L) 13.5 - 17.5 g/dL 03/29/2020 12:55 AM [facility] Hematocrit 31.4(L) 39.0 - 50.0 % 03/29/2020 12:55 AM [facility] MCV 89.7 81.0 - 97.0 fL 03/29/2020 12:55 AM [facility] MCH 29.4 28.0 - 34.0 pg 03/29/2020 12:55 AM [facility] MCHC 32.8 32.0 - 36.0 g/dL 03/29/2020 12:55 AM [facility] Platelet Count 237 150 - 400 10? 3 /uL 03/29/2020 12:55 AM [facility] RDW-SD 76.1(H) 36.0 - 50.0 fL 03/29/2020 12:55 AM [facility] RDW-CV 24.5(H) 11.2 - 14.8 % 03/29/2020 12:55 AM [facility] MPV 12.3 9.3 - 12.8 fL 03/29/2020 12:55 AM [facility] nRBC Absolute 1.08(H) 0 10? 3 /uL 03/29/2020 12:55 AM [facility] nRBC Auto 8.5(H) 0 /100 WBC 03/29/2020 12:55 AM [facility] Neutrophils % 81.1(H) 35.0 - 70.0 % 03/29/2020 12:55 AM [facility] Lymphocytes % 10.1(L) 19.7 - 55.1 % 03/29/2020 12:55 AM [facility] Monocytes % 6.1 3.0 - 15.0 % 03/29/2020 12:55 AM [facility] Eosinophils % 0.5 0.0 - 6.0 % 03/29/2020 12:55 AM [facility] Basophil % 0.2 0.0 - 1.5 % 03/29/2020 12:55 AM [facility] Neutrophils Absolute 10.3(H) 1.6 - 7.0 10? 3 /uL 03/29/2020 12:55 AM [facility] Lymphocyte Absolute 1.3 0.8 - 2.9 10? 3 /uL 03/29/2020 12:55 AM [facility] Monocytes Absolute 0.78(H) 0.14 - 0.66 10? 3 /uL 03/29/2020 12:55 AM [facility] Eosinophils Absolute 0.06 0.00 - 0.45 10? 3 /uL 03/29/2020 12:55 AM [facility] Basophils Absolute 0.02 0.00 - 0.06 10? 3 /uL 03/29/2020 12:55 AM [facility] Immature Granulocytes % 2.0(H) 0.0 - 1.0 % 03/29/2020 12:55 AM [facility] Blood BLOOD SPECIMEN / Unknown Lab Venipuncture / Unknown 03/29/2020 12:24 AM CDT 03/29/2020 12:35 AM T Asim Ramirez TRANSCRIBING OPERATOR HEAD-SEWING DEMONSTRATOR LAB - HEMATOLOGY ORDERABLES [address] [address], [facility] [phone] * (ABNORMAL) C-REACTIVE PROTEIN (03/29/2020 12:24 AM CDT) [facility] C-Reactive Protein 3.1(H) <=0.5 mg/dL 03/29/2020 1:01 AM CDT [facility] Blood BLOOD SPECIMEN / Unknown Lab Venipuncture / Unknown 03/29/2020 12:24 AM CDT 03/29/2020 12:35 AM CDT Asim Ramirez [facility] LAB - CHEMISTRY ORDERABLES [address] [address], [facility] [phone] * (ABNORMAL) RBC MORPHOLOGY (03/27/2020 6:07 AM CDT) [facility] Platelet Estimate Adequate Adequate 020 7:36 AM CDT [facility] Anisocytosis 1+(A) None 03/27/2020 7:36 AM CDT [facility] Macrocytosis 1+(A) None 03/27/2020 7:36 AM CDT [facility] Polychromasia 1+(A) None 03/27/2020 7:36 AM CDT [facility] Target Cells 1+(A) None 03/27/2020 7:36 AM CDT [facility] Schistocytes Occasional( A) None 03/27/2020 7:36 AM CDT [facility] Ovalocytes 1+(A) None 03/27/2020 7:36 AM CDT [facility] Blood BLOOD SPECIMEN / Unknown Lab Venipuncture / Unknown 03/27/2020 6:07 AM CDT 03/27/2020 6:10 AM CDT Asim Ramirez [facility] LAB - HEMATOLOGY ORDERABLES [address] [address], [facility] [phone] * (ABNORMAL) PHOSPHORUS BLOOD (03/27/2020 6:07 AM CDT) [facility] Phosphorus 4.8(H) 2.3 - 4.7 mg/dL 03/27/2020 6:35 AM CDT [facility] Blood BLOOD SPECIMEN / Unknown Lab Venipuncture / Unknown 03/27/2020 6:07 AM CDT 03/27/2020 6:10 AM CDT Asim Ramirez TRANSCRIBING OPERATOR HEAD-SEWING DEMONSTRATOR LAB - CHEMISTRY ORDERABLES [address] [address], [facility] [phone] * MAGNESIUM BLOOD (03/27/2020 6:07 AM CDT) Pathologist [facility] [place] Magnesium 1.7 1.6 - 2.6 mg/dL 03/27/2020 6:35 AM CDT [facility] Blood BLOOD SPECIMEN / Unknown Lab Venipuncture / Unknown 03/27/2020 6:07 AM CDT 03/27/2020 6:10 AM CDT Asim Ramirez APRN-SEWING DEMONSTRATOR LAB - CHEMISTRY ORDERABLES Performing Organization Address City/[facility]/ZIP Co de Phone Number [address] [address], [facility] [phone] * (ABNORMAL) LDH BLOOD (03/27/2020 6:07 AM CDT) Pathologist [facility] [place] LDH Total 358(H) 125 - 243 Units/L 03/27/2020 6:35 AM CDT [facility] Blood BLOOD SPECIMEN / Unknown Lab Venipuncture / Unknown 03/27/2020 6:07 AM CDT 03/27/2020 6:10 AM CDT Asim Ramirez TRANSCRIBING OPERATOR HEAD-SEWING DEMONSTRATOR LAB - CHEMISTRY ORDERABLES [address] [address], [facility] [phone] * (ABNORMAL) FERRITIN (03/27/2020 6:07 AM CDT) Pathologist [facility] [place] Ferritin 651(H) 22 - 275 ng/mL 03/27/2020 7:21 AM CDT [facility] Blood BLOOD SPECIMEN / Unknown Lab Venipuncture / Unknown 03/27/2020 6:07 AM CDT 03/27/2020 6:10 AM CDT Asim Ramirez [facility] LAB - CHEMISTRY ORDERABLES Performing Organization Address [facility]/ZIP Co de Phone Number [address] [address], [facility] [phone] * (ABNORMAL) ERYTHROCYTE SEDIMENTATION RATE (03/27/2020 6:07 AM CDT) Erythrocyte Sedimentation Rate Westergren 44(H) 0 - 15 MM/HR 03/27/2020 6:26 AM CDT [facility] Blood BLOOD SPECIMEN / Unknown Lab Venipuncture / Unknown 03/27/2020 6:07 AM CDT 03/27/2020 6:10 AM CDT Asim Ramirez [facility] LAB - HEMATOLOGY ORDERABLES Performing Organization Address [facility] Co de Phone Number [address] [address], [facility] [phone] * (ABNORMAL) D-DIMER (03/27/2020 6:07 AM CDT) Pathologist [facility] [place] D-Dimer Quantitative 0.99(H) <=0.50 mcg/mL FEU 03/27/2020 6:29 AM CDT [facility] Comment: In the absence of clinical [...] Haematol. 145:24-33,2009. Blood BLOOD SPECIMEN / Unknown Lab Venipuncture / Unknown 03/27/2020 6:07 AM CDT 03/27/2020 6:10 AM CDT Asim Ramirez TRANSCRIBING OPERATOR HEAD-SEWING DEMONSTRATOR LAB - COAGULATIO N ORDERABLES [facility] [address] [address] [phone] * (ABNORMAL) COMPREHENSIVE METABOLIC PANEL (03/27/2020 6:07 AM CDT) BUN 21 7 - 26 mg/dL 03/27/2020 6:35 AM [facility] Creatinine 0.9 0.6 - 1.2 mg/dL 03/27/2020 6:35 AM [facility] Sodium 143 136 - 145 mmol/L 03/27/2020 6:35 AM [facility] Potassium 3.7 3.5 - 4.5 mmol/L 03/27/2020 6:35 AM [facility] Chloride 104 98 - 107 mmol/L 03/27/2020 6:35 AM [facility] CO2 27 22 - 29 mmol/L 03/27/2020 6:35 AM [facility] Glucose 90 70 - 115 mg/dL 03/27/2020 6:35 AM [facility] Calcium 8.6 8.4 - 10.2 mg/dL 03/27/2020 6:35 AM [facility] Protein Total 5.1(L) 6.0 - 8.3 g/dL 03/27/2020 6:35 AM [facility] Albumin 2.5(L) 3.4 - 5.0 g/dL 03/27/2020 6:35 AM [facility] Bilirubin Total 0.2 0.2 - 1.2 mg/dL 03/27/2020 6:35 AM [facility] Alkaline Phosphatase 99 40 - 150 Units/L 03/27/2020 6:35 AM [facility] ALT 73(H) 0 - 55 Units/L 03/27/2020 6:35 AM [facility] AST 27 5 - 34 Units/L 03/27/2020 6:35 AM [facility] Anion Gap 16 8 - 18 03/27/2020 6:35 AM [facility] BUN/Creatinine Ratio 23 7 - 23 03/27/2020 6:35 AM [facility] Osmolality Calculated 299 270 - 300 mOsm/kg 03/27/2020 6:35 AM [facility] Albumin/Globulin Ratio 1.0(L) 1.1 - 2.3 03/27/2020 6:35 AM [facility] eGFR >60 >60 mL/min/1.7 3 m2 03/27/2020 6:35 AM [facility] Blood BLOOD SPECIMEN / Unknown Lab Venipuncture / Unknown 03/27/2020 6:07 AM CDT 03/27/2020 6:10 AM T Asim Ramirez TRANSCRIBING OPERATOR HEAD-SEWING DEMONSTRATOR LAB - CHEMISTRY ORDERABLES Performing Organization Address City/State/[facility] Co de Phone Number [address] [phone] [phone] * (ABNORMAL) CBC W AUTO DIFFERENTIAL (03/27/2020 6:07 AM CDT) WBC 12.5(H) 3.5 - 10.5 10? 3 /uL 03/27/2020 6:15 AM [facility] Comment:The WBC count is cor rected by the instrument for nRBC's RBC 3.27(L) 4.30 - 5.70 10? 6 /uL 03/27/2020 6:15 AM [facility] Hemoglobin 9.7(L) 13.5 - 17.5 g/dL 03/27/2020 6:15 AM [facility] Hematocrit 29.8(L) 39.0 - 50.0 % 03/27/2020 6:15 AM [facility] MCV 91.1 81.0 - 97.0 fL 03/27/2020 6:15 AM [facility] MCH 29.7 28.0 - 34.0 pg 03/27/2020 6:15 AM [facility] MCHC 32.6 32.0 - 36.0 g/dL 03/27/2020 6:15 AM [facility] Platelet Count 211 150 - 400 10? 3 /uL 03/27/2020 6:15 AM [facility] RDW-SD 78.3(H) 36.0 - 50.0 fL 03/27/2020 6:15 AM [facility] RDW-CV 24.5(H) 11.2 - 14.8 % 03/27/2020 6:15 AM [facility] MPV 11.1 9.3 - 12.8 fL 03/27/2020 6:15 AM [facility] nRBC Absolute 1.36(H) 0 10? 3 /uL 03/27/2020 6:15 AM [facility] nRBC Auto 10.9(H) 0 /100 WBC 03/27/2020 6:15 AM [facility] Neutrophils % 76.5(H) 35.0 - 70.0 % 03/27/2020 6:15 AM [facility] Lymphocytes % 9.9(L) 19.7 - 55.1 % 03/27/2020 6:15 AM [facility] Monocytes % 7.9 3.0 - 15.0 % 03/27/2020 6:15 AM [facility] Eosinophils % 1.8 0.0 - 6.0 % 03/27/2020 6:15 AM [facility] Basophil % 0.5 0.0 - 1.5 % 03/27/2020 6:15 AM [facility] Neutrophils Absolute 9.6(H) 1.6 - 7.0 10? 3 /uL 03/27/2020 6:15 AM [facility] Lymphocyte Absolute 1.2 0.8 - 2.9 10? 3 /uL 03/27/2020 6:15 AM CDT [facility] Monocytes Absolute 0.99(H) 0.14 - 0.66 10? 3 /uL 03/27/2020 6:15 AM CDT [facility] Eosinophils Absolute 0.23 0.00 - 0.45 10? 3 /uL 03/27/2020 6:15 AM CDT [facility] Basophils Absolute 0.06 0.00 - 0.06 10? 3 /uL 03/27/2020 6:15 AM CDT [facility] Immature Granulocytes % 3.4(H) 0.0 - 1.0 % 03/27/2020 6:15 AM CDT [facility] Blood BLOOD SPECIMEN / Unknown Lab Venipuncture / Unknown 03/27/2020 6:07 AM CDT 03/27/2020 6:10 AM CDT Asim Ramirez [facility] LAB - HEMATOLOGY ORDERABLES [address] [address], [place] [phone] * (ABNORMAL) C-REACTIVE PROTEIN (03/27/2020 6:07 AM CDT) C-Reactive Protein 2.1(H) <=0.5 mg/dL 03/27/2020 6:59 AM CDT [facility] Blood BLOOD SPECIMEN / Unknown Lab Venipuncture / Unknown 03/27/2020 6:07 AM CDT 03/27/2020 6:10 AM CDT Asim Ramirez [facility] LAB - CHEMISTRY ORDERABLES [address] [address], [facility] [phone] * CULTURE BLOOD (03/24/2020 1:24 PM CDT) Culture No growth day 5 SPENCER 03/29/2020 4:30 PM CDT [facility] MICROBIOLOGY Blood PERIPHERAL BLOOD / Unknown Lab Venipuncture / Unknown 03/24/2020 1:24 PM CDT 03/24/2020 1:31 PM CDT Asim Heredia James BULLARDN-SEWING DEMONSTRATOR LAB - MICROBIOLO GY ORDERABLES [facility] MICROBIOLOGY [address] [place] [address], [facility] [phone] * CULTURE BLOOD (03/24/2020 1:24 PM CDT) Pathologist [facility] [place] Culture No growth day 5 SPENCER 03/29/2020 4:30 PM CDT [facility] MICROBIOLOGY Blood PERIPHERAL BLOOD / Unknown Lab Venipuncture / Unknown 03/24/2020 1:24 PM CDT 03/24/2020 1:31 PM CDT Asim A James [facility] LAB - MICROBIOLO GY ORDERABLES Performing Organization Address City/[facility]/ZIP Co de Phone Number [facility] MICROBIOLOGY [address] [facility] [place] [address], [facility] [phone] * (ABNORMAL) RBC MORPHOLOGY (03/24/2020 12:29 AM CDT) Pathologist [facility] [place] Platelet Estimate Adequate Adequate 020 1:59 AM CDT [facility] Anisocytosis 1+(A) None 03/24/2020 1:59 AM CDT [facility] Polychromasia 1+(A) None 03/24/2020 1:59 AM CDT [facility] [place] Bodies Rare(A) None 03/24/2020 1:59 AM CDT [facility] Target Cells 1+(A) None 03/24/2020 1:59 AM CDT [facility] Sickle Cells Occasional( A) None 03/24/2020 1:59 AM CDT [facility] Schistocytes Occasional( A) None 03/24/2020 1:59 AM CDT [facility] Ovalocytes 1+(A) None 03/24/2020 1:59 AM CDT [facility] Blood BLOOD SPECIMEN / Unknown Lab Venipuncture / Unknown 03/24/2020 12:29 AM CDT 03/24/2020 12:41 AM CDT Asim Ramirez [facility] LAB - HEMATOLOGY ORDERABLES Performing Organization Address [facility]/ZIP Co de Phone Number [address] [address], [place] [phone] * PHOSPHORUS BLOOD (03/24/2020 12:29 AM CDT) Phosphorus 4.1 2.3 - 4.7 mg/dL 03/24/2020 1:04 AM CDT [facility] Blood BLOOD SPECIMEN / Unknown Lab Venipuncture / Unknown 03/24/2020 12:29 AM CDT 03/24/2020 12:41 AM CDT Asim Ramirez TRANSCRIBING OPERATOR [facility] - CHEMISTRY ORDERABLES Performing Organization Address [facility] Co de Phone Number [place] [phone] [phone] * MAGNESIUM BLOOD (03/24/2020 12:29 AM CDT) Magnesium 1.8 1.6 - 2.6 mg/dL 03/24/2020 1:04 AM CDT [facility] Blood BLOOD SPECIMEN / Unknown Lab Venipuncture / Unknown 03/24/2020 12:29 AM CDT 03/24/2020 12:41 AM CDT Asim Ramirez [facility] LAB - CHEMISTRY ORDERABLES [address] [address], [facility] [phone] * (ABNORMAL) LDH BLOOD (03/24/2020 12:29 AM CDT) LDH Total 369(H) 125 - 243 Units/L 03/24/2020 1:04 AM CDT [facility] Blood BLOOD SPECIMEN / Unknown Lab Venipuncture / Unknown 03/24/2020 12:29 AM CDT 03/24/2020 12:41 AM CDT Asim Ramirez TRANSCRIBING OPERATOR [employer] LAB - CHEMISTRY ORDERABLES Performing Organization Address [facility]/ZIP Co de Phone Number [address] [phone], [facility] [phone] * (ABNORMAL) FERRITIN (03/24/2020 12:29 AM CDT) Pathologist [facility] [place] Ferritin 658(H) 22 - 275 ng/mL 03/24/2020 1:53 AM CDT [facility] Blood BLOOD SPECIMEN / Unknown Lab Venipuncture / Unknown 03/24/2020 12:29 AM CDT 03/24/2020 12:41 AM CDT Asim Singletonst TRANSCRIBING OPERATOR [facility] LAB - CHEMISTRY ORDERABLES Performing Organization Address [facility] Co de Phone Number [address] [address], [facility] [phone] * (ABNORMAL) ERYTHROCYTE SEDIMENTATION RATE (03/24/2020 12:29 AM CDT) [facility] Erythrocyte Sedimentation Rate Westergren 53(H) 0 - 15 MM/HR 03/24/2020 1:06 AM CDT [facility] Blood BLOOD SPECIMEN / Unknown Lab Venipuncture / Unknown 03/24/2020 12:29 AM CDT 03/24/2020 12:41 AM CDT Asim Heredia James TRANSCRIBING OPERATOR [facility] LAB - HEMATOLOGY ORDERABLES Performing Organization Address City/[facility]/ZIP Co de Phone Number [address] [address], [facility] [phone] * (ABNORMAL) D-DIMER (03/24/2020 12:29 AM CDT) [facility] D-Dimer Quantitative 0.55(H) <=0.50 mcg/mL FEU 03/24/2020 1:05 AM CDT [facility] Comment: In the absence of clinical [...] Haematol. 145:24-33,2009. Blood BLOOD SPECIMEN / Unknown Lab Venipuncture / Unknown 03/24/2020 12:29 AM CDT 03/24/2020 12:38 AM CDT Asim Ramirez TRANSCRIBING OPERATOR [employer] LAB - COAGULATIO N ORDERABLES Performing Organization Address City/State/[facility] Co de Phone Number [facility] [address] [place] [phone], [facility] [phone] * (ABNORMAL) COMPREHENSIVE METABOLIC PANEL (03/24/2020 12:29 AM CDT) BUN 20 7 - 26 mg/dL 03/24/2020 1:04 AM CDT [facility] Creatinine 0.9 0.6 - 1.2 mg/dL 03/24/2020 1:04 AM CDT [facility] Sodium 139 136 - 145 mmol/L 03/24/2020 1:04 AM CDT [facility] Potassium 4.2 3.5 - 4.5 mmol/L 03/24/2020 1:04 AM CDT [facility] Chloride 100 98 - 107 mmol/L 03/24/2020 1:04 AM [facility] CO2 26 22 - 29 mmol/L 03/24/2020 1:04 AM [facility] Glucose 131(H) 70 - 115 mg/dL 03/24/2020 1:04 AM [facility] Calcium 8.8 8.4 - 10.2 mg/dL 03/24/2020 1:04 AM [facility] Protein Total 5.5(L) 6.0 - 8.3 g/dL 03/24/2020 1:04 AM [facility] Albumin 2.6(L) 3.4 - 5.0 g/dL 03/24/2020 1:04 AM [facility] Bilirubin Total 0.2 0.2 - 1.2 mg/dL 03/24/2020 1:04 AM [facility] Alkaline Phosphatase 93 40 - 150 Units/L 03/24/2020 1:04 AM [facility] ALT 52 0 - 55 Units/L 03/24/2020 1:04 AM [facility] AST 20 5 - 34 Units/L 03/24/2020 1:04 AM [facility] Anion Gap 17 8 - 18 03/24/2020 1:04 AM [facility] BUN/Creatinine Ratio 22 7 - 23 03/24/2020 1:04 AM [facility] Osmolality Calculated 292 270 - 300 mOsm/kg 03/24/2020 1:04 AM [facility] Albumin/Globulin Ratio 0.9(L) 1.1 - 2.3 03/24/2020 1:04 AM [facility] eGFR >60 >60 mL/min/1.7 3 m2 03/24/2020 1:04 AM [facility] Blood BLOOD SPECIMEN / Unknown Lab Venipuncture / Unknown 03/24/2020 12:29 AM CDT 03/24/2020 12:41 AM [facility] Asim Ramirez TRANSCRIBING OPERATOR HEAD-SEWING DEMONSTRATOR LAB - CHEMISTRY ORDERABLES [address] [address], [facility] [phone] * (ABNORMAL) CBC W AUTO DIFFERENTIAL (03/24/2020 12:29 AM [facility]) WBC 16.8(H) 3.5 - 10.5 10? 3 /uL 03/24/2020 12:53 AM [facility] Comment:The WBC count is cor rected by the instrument for nRBC's RBC 3.40(L) 4.30 - 5.70 10? 6 /uL 03/24/2020 12:53 AM [facility] Hemoglobin 9.9(L) 13.5 - 17.5 g/dL 03/24/2020 12:53 AM [facility] Hematocrit 30.4(L) 39.0 - 50.0 % 03/24/2020 12:53 AM [facility] MCV 89.4 81.0 - 97.0 fL 03/24/2020 12:53 AM [facility] MCH 29.1 28.0 - 34.0 pg 03/24/2020 12:53 AM [facility] MCHC 32.6 32.0 - 36.0 g/dL 03/24/2020 12:53 AM [facility] Platelet Count 240 150 - 400 10? 3 /uL 03/24/2020 12:53 AM [facility] RDW-SD 72.8(H) 36.0 - 50.0 fL 03/24/2020 12:53 AM [facility] RDW-CV 23.2(H) 11.2 - 14.8 % 03/24/2020 12:53 AM [facility] MPV 12.9(H) 9.3 - 12.8 fL 03/24/2020 12:53 AM [facility] nRBC Absolute 0.74(H) 0 10? 3 /uL 03/24/2020 12:53 AM [facility] nRBC Auto 4.4(H) 0 /100 WBC 03/24/2020 12:53 AM [facility] Neutrophils % 81.6(H) 35.0 - 70.0 % 03/24/2020 12:53 AM [facility] Lymphocytes % 7.2(L) 19.7 - 55.1 % 03/24/2020 12:53 AM [facility] Monocytes % 7.5 3.0 - 15.0 % 03/24/2020 12:53 AM CDT [facility] Eosinophils % 0.6 0.0 - 6.0 % 03/24/2020 12:53 AM CDT [facility] Basophil % 0.3 0.0 - 1.5 % 03/24/2020 12:53 AM CDT [facility] Neutrophils Absolute 13.7(H) 1.6 - 7.0 10? 3 /uL 03/24/2020 12:53 AM CDT [facility] Lymphocyte Absolute 1.2 0.8 - 2.9 10? 3 /uL 03/24/2020 12:53 AM CDT [facility] Monocytes Absolute 1.25(H) 0.14 - 0.66 10? 3 /uL 03/24/2020 12:53 AM CDT [facility] Eosinophils Absolute 0.10 0.00 - 0.45 10? 3 /uL 03/24/2020 12:53 AM CDT [facility] Basophils Absolute 0.05 0.00 - 0.06 10? 3 /uL 03/24/2020 12:53 AM CDT [facility] Immature Granulocytes % 2.8(H) 0.0 - 1.0 % 03/24/2020 12:53 AM CDT [facility] Blood BLOOD SPECIMEN / Unknown Lab Venipuncture / Unknown 03/24/2020 12:29 AM CDT 03/24/2020 12:41 AM CDT Asim Ramirez TRANSCRIBING OPERATOR [employer]-SEWING DEMONSTRATOR LAB - HEMATOLOGY ORDERABLES Performing Organization Address City/State/[facility] Co de Phone Number [address] [address] [phone] * (ABNORMAL) C-REACTIVE PROTEIN (03/24/2020 12:29 AM CDT) C-Reactive Protein 2.2(H) <=0.5 mg/dL 03/24/2020 1:14 AM CDT [facility] Blood BLOOD SPECIMEN / Unknown Lab Venipuncture / Unknown 03/24/2020 12:29 AM CDT 03/24/2020 12:41 AM CDT Asim Ramirez TRANSCRIBING OPERATOR HEAD-SEWING DEMONSTRATOR LAB - CHEMISTRY ORDERABLES Performing Organization Address [facility]/ZIP Co de Phone Number [address] [address], [facility] [phone] * (ABNORMAL) IGG BLOOD (03/22/2020 12:46 AM CDT) IgG 509(L) 540-1,822 mg/dL 03/22/2020 10:26 AM CDT [facility] Blood BLOOD SPECIMEN / Unknown Lab Venipuncture / Unknown 03/22/2020 12:46 AM CDT 03/22/2020 1:04 AM CDT Asim Ramirez TRANSCRIBING OPERATOR HEAD-[facility] LAB - CHEMISTRY ORDERABLES Performing Organization Address [facility] Co de Phone Number [address] [address], [facility] [phone] * (ABNORMAL) RBC MORPHOLOGY (03/22/2020 12:46 AM CDT) Anisocytosis 1+(A) None 03/22/2020 1:41 AM CDT [facility] Hypochromia 1+(A) None 03/22/2020 1:41 AM CDT [facility] Polychromasia 1+(A) None 03/22/2020 1:41 AM CDT [facility] Target Cells 1+(A) None 03/22/2020 1:41 AM CDT [facility] Schistocytes Occasiona l(A) None 03/22/2020 1:41 AM CDT [facility] Ovalocytes 1+(A) None 03/22/2020 1:41 AM CDT [facility] Large Platelet Count 1+(A) None 03/22/2020 1:41 AM CDT [facility] Blood BLOOD SPECIMEN / Unknown Lab Venipuncture / Unknown 03/22/2020 12:46 AM CDT 03/22/2020 1:04 AM CDT Tiffanie Nguyen TRANSCRIBING OPERATOR [employer]-SEWING DEMONSTRATOR LAB - HEMATOLOG Y ORDERABLES [address] [phone] [phone] * (ABNORMAL) C-REACTIVE PROTEIN (03/22/2020 12:46 AM CDT) C-Reactive Protein 3.0(H) <=0.5 mg/dL 03/22/2020 1:27 AM CDT [facility] Blood BLOOD SPECIMEN / Unknown Lab Venipuncture / Unknown 03/22/2020 12:46 AM CDT 03/22/2020 1:04 AM CDT Savanah MIMS LAB - CHEMISTRY ORDSharon [place] Performing Organization Address [facility]/[place] [address], [facility] [phone] * (ABNORMAL) LDH BLOOD (03/22/2020 12:46 AM CDT) LDH Total 390(H) 125 - 243 Units/L 03/22/2020 1:36 AM CDT [facility] Blood BLOOD SPECIMEN / Unknown Lab Venipuncture / Unknown 03/22/2020 12:46 AM CDT 03/22/2020 1:04 AM CDT Kenneth Martins MD LAB - CHEMISTRY CINTHIA [place] Performing Organization Address [facility]/ZIP Co de Phone Number [address] [address], [facility] [phone] * (ABNORMAL) FERRITIN (03/22/2020 12:46 AM CDT) Ferritin 737(H) 22 - 275 ng/mL 03/22/2020 1:51 AM CDT [facility] Blood BLOOD SPECIMEN / Unknown Lab Venipuncture / Unknown 03/22/2020 12:46 AM CDT 03/22/2020 1:04 AM CDT Kenneth Martins MD LAB - CHEMISTRY CINTHIA [place] [address] [address], [facility] [phone] * (ABNORMAL) ERYTHROCYTE SEDIMENTATION RATE (03/22/2020 12:46 AM CDT) [facility] Erythrocyte Sedimentation Rate Westergren 50(H) 0 - 15 MM/HR 03/22/2020 1:19 AM CDT [facility] Blood BLOOD SPECIMEN / Unknown Lab Venipuncture / Unknown 03/22/2020 12:46 AM CDT 03/22/2020 1:04 AM CDT Kenneth Martins MD LAB - HEMATOLOGY ORD ERABLES [address] [address], [facility] [phone] * (ABNORMAL) D-DIMER (03/22/2020 12:46 AM CDT) [facility] D-Dimer Quantitative 0.63(H) <=0.50 mcg/mL FEU 03/22/2020 1:26 AM CDT [facility] Comment: In the absence of clinical [...] Haematol. 145:24-33,2009. Blood BLOOD SPECIMEN / Unknown Lab Venipuncture / Unknown 03/22/2020 12:46 AM CDT 03/22/2020 1:04 AM CDT Kenneth Martins MD LAB - COAGULATION OR DERABLES Performing Organization Address City/[facility]/ZIP Co de Phone Number [place] [address], [facility] [phone] * PHOSPHORUS BLOOD (03/22/2020 12:46 AM CDT) Phosphorus 3.9 2.3 - 4.7 mg/dL 03/22/2020 1:36 AM CDT [facility] Blood BLOOD SPECIMEN / Unknown Lab Venipuncture / Unknown 03/22/2020 12:46 AM CDT 03/22/2020 1:04 AM CDT Tiffanie Nguyen TRANSCRIBING OPERATOR [employer]WING DEMONSTRATOR LAB - CHEMISTRY ORDERABLES Performing Organization Address [facility] Co de Phone Number [place] [address], [facility] [phone] * MAGNESIUM BLOOD (03/22/2020 12:46 AM CDT) Magnesium 2.0 1.6 - 2.6 mg/dL 03/22/2020 1:36 AM CDT [facility] Blood BLOOD SPECIMEN / Unknown Lab Venipuncture / Unknown 03/22/2020 12:46 AM CDT 03/22/2020 1:04 AM CDT Tiffanie Nguyen TRANSCRIBING OPERATOR HEAD-SEWING DEMONSTRATOR LAB - CHEMISTRY ORDERABLES Performing Organization Address [facility] Co de Phone Number [place] [address], [facility] [phone] * (ABNORMAL) COMPREHENSIVE METABOLIC PANEL (03/22/2020 12:46 AM CDT) BUN 15 7 - 26 mg/dL 03/22/2020 1:36 AM [facility] Creatinine 0.8 0.6 - 1.2 mg/dL 03/22/2020 1:36 AM [facility] Sodium 140 136 - 145 mmol/L 03/22/2020 1:36 AM [facility] Potassium 4.2 3.5 - 4.5 mmol/L 03/22/2020 1:36 AM [facility] Chloride 98 98 - 107 mmol/L 03/22/2020 1:36 AM [facility] CO2 32(H) 22 - 29 mmol/L 03/22/2020 1:36 AM [facility] Glucose 108 70 - 115 mg/dL 03/22/2020 1:36 AM [facility] Calcium 8.4 8.4 - 10.2 mg/dL 03/22/2020 1:36 AM [facility] Protein Total 5.4(L) 6.0 - 8.3 g/dL 03/22/2020 1:36 AM [facility] Albumin 2.4(L) 3.4 - 5.0 g/dL 03/22/2020 1:36 AM [facility] Bilirubin Total 0.2 0.2 - 1.2 mg/dL 03/22/2020 1:36 AM [facility] Alkaline Phosphatase 86 40 - 150 Units/L 03/22/2020 1:36 AM [facility] ALT 46 0 - 55 Units/L 03/22/2020 1:36 AM [facility] AST 19 5 - 34 Units/L 03/22/2020 1:36 AM [facility] Anion Gap 14 8 - 18 03/22/2020 1:36 AM [facility] BUN/Creatinine Ratio 19 7 - 23 03/22/2020 1:36 AM [facility] Osmolality Calculated 291 270 - 300 mOsm/kg 03/22/2020 1:36 AM [facility] Albumin/Globulin Ratio 0.8(L) 1.1 - 2.3 03/22/2020 1:36 AM [facility] eGFR >60 >60 mL/min/1.7 3 m2 03/22/2020 1:36 AM [facility] Blood BLOOD SPECIMEN / Unknown Lab Venipuncture / Unknown 03/22/2020 12:46 AM CDT 03/22/2020 1:04 AM CDT Tiffanie Nguyen TRANSCRIBING OPERATOR HEAD-SEWING DEMONSTRATOR LAB - CHEMISTRY ORDERABLES [address] [address], [facility] [phone] * (ABNORMAL) CBC W AUTO DIFFERENTIAL (03/22/2020 12:46 AM CDT) WBC 14.3(H) 3.5 - 10.5 10? 3 /uL 03/22/2020 1:12 AM [facility] Comment:The WBC count is cor rected by the instrument for nRBC's RBC 3.42(L) 4.30 - 5.70 10? 6 /uL 03/22/2020 1:12 AM [facility] Hemoglobin 10.0(L) 13.5 - 17.5 g/dL 03/22/2020 1:12 AM [facility] Hematocrit 30.2(L) 39.0 - 50.0 % 03/22/2020 1:12 AM [facility] MCV 88.3 81.0 - 97.0 fL 03/22/2020 1:12 AM [facility] MCH 29.2 28.0 - 34.0 pg 03/22/2020 1:12 AM [facility] MCHC 33.1 32.0 - 36.0 g/dL 03/22/2020 1:12 AM [facility] Platelet Count 205 150 - 400 10? 3 /uL 03/22/2020 1:12 AM [facility] RDW-SD 69.9(H) 36.0 - 50.0 fL 03/22/2020 1:12 AM [facility] RDW-CV 22.3(H) 11.2 - 14.8 % 03/22/2020 1:12 AM [facility] MPV 12.4 9.3 - 12.8 fL 03/22/2020 1:12 AM [facility] nRBC Absolute 0.58(H) 0 10? 3 /uL 03/22/2020 1:12 AM [facility] nRBC Auto 4.1(H) 0 /100 WBC 03/22/2020 1:12 AM [facility] Neutrophils % 83.6(H) 35.0 - 70.0 % 03/22/2020 1:12 AM [facility] Lymphocytes % 6.8(L) 19.7 - 55.1 % 03/22/2020 1:12 AM [facility] Monocytes % 5.3 3.0 - 15.0 % 03/22/2020 1:12 AM [facility] Eosinophils % 0.5 0.0 - 6.0 % 03/22/2020 1:12 AM [facility] Basophil % 0.3 0.0 - 1.5 % 03/22/2020 1:12 AM [facility] Neutrophils Absolute 12.0(H) 1.6 - 7.0 10? 3 /uL 03/22/2020 1:12 AM [facility] Lymphocyte Absolute 1.0 0.8 - 2.9 10? 3 /uL 03/22/2020 1:12 AM [facility] Monocytes Absolute 0.75(H) 0.14 - 0.66 10? 3 /uL 03/22/2020 1:12 AM [facility] Eosinophils Absolute 0.07 0.00 - 0.45 10? 3 /uL 03/22/2020 1:12 AM [facility] Basophils Absolute 0.04 0.00 - 0.06 10? 3 /uL 03/22/2020 1:12 AM [facility] Immature Granulocytes % 3.5(H) 0.0 - 1.0 % 03/22/2020 1:12 AM [facility] Blood BLOOD SPECIMEN / Unknown Lab Venipuncture / Unknown 03/22/2020 12:46 AM CDT 03/22/2020 1:04 AM T Tiffanie Nguyen TRANSCRIBING OPERATOR HEAD-SEWING DEMONSTRATOR LAB - HEMATOLOG Y ORDERABLES [address] [address], [facility] [phone] * CULTURE BLOOD (03/21/2020 2:19 AM CDT) Culture No growth day 5 SP[place]ER 03/26/2020 5:30 AM CDT [facility] MICROBIOLOGY Blood PERIPHERAL BLOOD / Unknown Lab Venipuncture / Unknown 03/21/2020 2:19 AM CDT 03/21/2020 2:23 AM CDT Keli Case TRANSCRIBING OPERATOR HEAD-SEWING DEMONSTRATOR LAB - MICROBIOLOG Y ORDERABLES [facility] MICROBIOLOGY [address] [place] [address], [facility] [phone] * (ABNORMAL) RBC MORPHOLOGY (03/21/2020 2:13 AM CDT) Platelet Estimate Adequate Adequate 020 2:58 AM CDT [facility] Anisocytosis 1+(A) None 03/21/2020 2:58 AM CDT [facility] Microcytes Occasional( A) None 03/21/2020 2:58 AM CDT [facility] Polychromasia 1+(A) None 03/21/2020 2:58 AM CDT [facility] Basophilic Stippling Rare(A) None 03/21/2020 2:58 AM CDT [facility] [place] Bodies Rare(A) None 03/21/2020 2:58 AM CDT [facility] Target Cells 1+(A) None 03/21/2020 2:58 AM CDT [facility] Schistocytes 1+(A) None 03/21/2020 2:58 AM CDT [facility] Ovalocytes Occasional( A) None 03/21/2020 2:58 AM CDT [facility] Tear Drop Cells Occasional( A) None 03/21/2020 2:58 AM CDT [facility] Large Platelet Count 1+(A) None 03/21/2020 2:58 AM CDT [facility] Blood BLOOD SPECIMEN / Unknown Lab Venipuncture / Unknown 03/21/2020 2:13 AM CDT 03/21/2020 2:23 AM CDT Tiffanie Alvess [facility] LAB - HEMATOLOG Y ORDERABLES Performing Organization Address [facility]/State/ZIP Co de Phone Number [address] [address], [facility] [phone] * (ABNORMAL) C-REACTIVE PROTEIN (03/21/2020 2:13 AM CDT) C-Reactive Protein 3.2(H) <=0.5 mg/dL 03/21/2020 2:59 AM CDT [facility] Blood BLOOD SPECIMEN / Unknown Lab Venipuncture / Unknown 03/21/2020 2:13 AM CDT 03/21/2020 2:23 AM CDT Savanah [employer] [facility] LAB - CHEMISTRY ORDE RABLES Performing Organization Address [facility]/ZIP Co de Phone Number [address] [address], [facility] [phone] * PHOSPHORUS BLOOD (03/21/2020 2:13 AM CDT) Phosphorus 3.9 2.3 - 4.7 mg/dL 03/21/2020 2:46 AM CDT [facility] Blood BLOOD SPECIMEN / Unknown Lab Venipuncture / Unknown 03/21/2020 2:13 AM CDT 03/21/2020 2:23 AM CDT Lara Patrick [facility] LAB - CHEMISTRY ORDERABLES [address] [address], [facility] [phone] * MAGNESIUM BLOOD (03/21/2020 2:13 AM CDT) Magnesium 1.9 1.6 - 2.6 mg/dL 03/21/2020 2:46 AM CDT [facility] Blood BLOOD SPECIMEN / Unknown Lab Venipuncture / Unknown 03/21/2020 2:13 AM CDT 03/21/2020 2:23 AM CDT Tiffanie Nguyen TRANSCRIBING OPERATOR [employer]-SEWING DEMONSTRATOR LAB - CHEMISTRY ORDERABLES [address] [address], [facility] [phone] * (ABNORMAL) COMPREHENSIVE METABOLIC PANEL (03/21/2020 2:13 AM CDT) BUN 16 7 - 26 mg/dL 03/21/2020 2:46 AM [facility] Creatinine 0.8 0.6 - 1.2 mg/dL 03/21/2020 2:46 AM [facility] Sodium 139 136 - 145 mmol/L 03/21/2020 2:46 AM [facility] Potassium 4.2 3.5 - 4.5 mmol/L 03/21/2020 2:46 AM [facility] Chloride 99 98 - 107 mmol/L 03/21/2020 2:46 AM [facility] CO2 30(H) 22 - 29 mmol/L 03/21/2020 2:46 AM [facility] Glucose 98 70 - 115 mg/dL 03/21/2020 2:46 AM [facility] Calcium 8.6 8.4 - 10.2 mg/dL 03/21/2020 2:46 AM [facility] Protein Total 5.4(L) 6.0 - 8.3 g/dL 03/21/2020 2:46 AM [facility] Albumin 2.4(L) 3.4 - 5.0 g/dL 03/21/2020 2:46 AM [facility] Bilirubin Total 0.2 0.2 - 1.2 mg/dL 03/21/2020 2:46 AM [facility] Alkaline Phosphatase 91 40 - 150 Units/L 03/21/2020 2:46 AM [facility] ALT 36 0 - 55 Units/L 03/21/2020 2:46 AM [facility] AST 15 5 - 34 Units/L 03/21/2020 2:46 AM [facility] Anion Gap 14 8 - 18 03/21/2020 2:46 AM [facility] BUN/Creatinine Ratio 20 7 - 23 03/21/2020 2:46 AM [facility] Osmolality Calculated 289 270 - 300 mOsm/kg 03/21/2020 2:46 AM [facility] Albumin/Globulin Ratio 0.8(L) 1.1 - 2.3 03/21/2020 2:46 AM [facility] eGFR >60 >60 mL/min/1.7 3 m2 03/21/2020 2:46 AM [facility] Blood BLOOD SPECIMEN / Unknown Lab Venipuncture / Unknown 03/21/2020 2:13 AM CDT 03/21/2020 2:23 AM CDT Lara Patrick TRANSCRIBING OPERATOR [employer]-SEWING DEMONSTRATOR LAB - CHEMISTRY ORDERABLES [address] [address], [facility] [phone] * (ABNORMAL) CBC W AUTO DIFFERENTIAL (03/21/2020 2:13 AM CDT) WBC 13.6(H) 3.5 - 10.5 10? 3 /uL 03/21/2020 2:29 AM [facility] Comment:The WBC count is cor rected by the instrument for nRBC's RBC 3.47(L) 4.30 - 5.70 10? 6 /uL 03/21/2020 2:29 AM [facility] Hemoglobin 10.0(L) 13.5 - 17.5 g/dL 03/21/2020 2:29 AM [facility] Hematocrit 30.4(L) 39.0 - 50.0 % 03/21/2020 2:29 AM [facility] MCV 87.6 81.0 - 97.0 fL 03/21/2020 2:29 AM [facility] MCH 28.8 28.0 - 34.0 pg 03/21/2020 2:29 AM [facility] MCHC 32.9 32.0 - 36.0 g/dL 03/21/2020 2:29 AM [facility] Platelet Count 192 150 - 400 10? 3 /uL 03/21/2020 2:29 AM [facility] RDW-SD 67.5(H) 36.0 - 50.0 fL 03/21/2020 2:29 AM [facility] RDW-CV 22.1(H) 11.2 - 14.8 % 03/21/2020 2:29 AM [facility] MPV 03/21/2020 2:29 AM [facility] Comment:NOT MEASURED nRBC Absolute 0.77(H) 0 10? 3 /uL 03/21/2020 2:29 AM [facility] nRBC Auto 5.7(H) 0 /100 WBC 03/21/2020 2:29 AM [facility] Neutrophils % 82.7(H) 35.0 - 70.0 % 03/21/2020 2:29 AM [facility] Lymphocytes % 7.1(L) 19.7 - 55.1 % 03/21/2020 2:29 AM [facility] Monocytes % 5.2 3.0 - 15.0 % 03/21/2020 2:29 AM [facility] Eosinophils % 0.8 0.0 - 6.0 % 03/21/2020 2:29 AM [facility] Basophil % 0.2 0.0 - 1.5 % 03/21/2020 2:29 AM [facility] Neutrophils Absolute 11.3(H) 1.6 - 7.0 10? 3 /uL 03/21/2020 2:29 AM [facility] Lymphocyte Absolute 1.0 0.8 - 2.9 10? 3 /uL 03/21/2020 2:29 AM [facility] Monocytes Absolute 0.71(H) 0.14 - 0.66 10? 3 /uL 03/21/2020 2:29 AM [facility] Eosinophils Absolute 0.11 0.00 - 0.45 10? 3 /uL 03/21/2020 2:29 AM [facility] Basophils Absolute 0.03 0.00 - 0.06 10? 3 /uL 03/21/2020 2:29 AM [facility] Immature Granulocytes % 4.0(H) 0.0 - 1.0 % 03/21/2020 2:29 AM [facility] Blood BLOOD SPECIMEN / Unknown Lab Venipuncture / Unknown 03/21/2020 2:13 AM CDT 03/21/2020 2:23 AM CDT Tiffanie Nguyen TRANSCRIBING OPERATOR [facility] - HEMATOLOG Y ORDERABLES [address] [address], [facility] [phone] * B-TYPE NATRIURETIC PEPTIDE (03/21/2020 2:13 AM CDT) BNP <10 See Comment pg/mL 03/21/2020 2:48 AM CDT [facility] Comment: * Disclaimer: BNP results may be falsely high by 20% due * * to shift observed secondary to new reagent lot. Lab ?* * working with reinforcing iron and rebar workers to resolve. ?* * ?* * Please contact [facility] with any questions ??* A decision threshold of 100 pg/mL has [...] 98.3 ? Blood BLOOD SPECIMEN / Unknown Lab Venipuncture / Unknown 03/21/2020 2:13 AM CDT 03/21/2020 2:23 AM CDT Keli Evie TRANSCRIBING OPERATOR [facility] - CHEMISTRY O RDERABLES [facility] [address] [address], [facility] [phone] * CULTURE BLOOD (03/21/2020 2:13 AM CDT) Culture No growth day 5 [facility] 03/26/2020 5:30 AM CDT [facility] Blood PERIPHERAL BLOOD / Unknown Lab Venipuncture / Unknown 03/21/2020 2:13 AM CDT 03/21/2020 2:23 AM CDT Keli Evie TRANSCRIBING OPERATOR [facility] - MICROBIOLOG Y ORDERABLES [facility] [address] [place], [place] [address], [facility] [phone] * XR CHEST 1VW PORTABLE (03/20/2020 4:51 PM CDT) Anatomical Region Laterality Modality Chest Radiographic [...] abnormality. Report dictated by Adrián Vides MD (information services vice president). Dr. YARA Harris have personally reviewed and interpreted this examination/study. [...] abnormality. Report dictated by Adrián Vides MD (information services vice president). Dr. YARA Harris have personally reviewed and interpreted this examination/study. This report was electronically signed by YARA MADRIGAL on 03/22/2020 9:32 AM . Keli Case TRANSCRIBING OPERATOR [facility] DIAGNOSTIC IMAGIN G ORDERABLES * (ABNORMAL) RBC MORPHOLOGY (03/20/2020 8:44 AM CDT) Anisocytosis 1+(A) None 03/20/2020 9:49 AM CDT [facility] Hypochromia Rare(A) None 03/20/2020 9:49 AM CDT [facility] Polychromasia 1+(A) None 03/20/2020 9:49 AM CDT [facility] [place] Bodies Rare(A) None 03/20/2020 9:49 AM CDT [facility] Target Cells 1+(A) None 03/20/2020 9:49 AM CDT [facility] Schistocytes 1+(A) None 03/20/2020 9:49 AM CDT [facility] Blood BLOOD SPECIMEN / Unknown Lab Venipuncture / Unknown 03/20/2020 8:44 AM CDT 03/20/2020 9:04 AM CDT Tiffanie Nguyen [facility] - HEMATOLOG Y ORDERABLES [address] [address], [place] [phone] * (ABNORMAL) C-REACTIVE PROTEIN (03/20/2020 8:44 AM CDT) C-Reactive Protein 1.9(H) <=0.5 mg/dL 03/20/2020 9:48 AM CDT [facility] Blood BLOOD SPECIMEN / Unknown Lab Venipuncture / Unknown 03/20/2020 8:44 AM CDT 03/20/2020 9:04 AM CDT Savanah Bolton TRANSCRIBING OPERATOR [facility] - CHEMISTRY ORDSharon [place] [address] [address], [facility] [phone] * (ABNORMAL) LDH BLOOD (03/20/2020 8:44 AM CDT) LDH Total 395(H) 125 - 243 Units/L 03/20/2020 9:30 AM CDT [facility] Blood BLOOD SPECIMEN / Unknown Lab Venipuncture / Unknown 03/20/2020 8:44 AM CDT 03/20/2020 9:04 AM CDT Kenneth Martins MD LAB - CHEMISTRY CINTHIA [place] [address] [address], [facility] [phone] * (ABNORMAL) FERRITIN (03/20/2020 8:44 AM CDT) Pathologist [facility] [place] Ferritin 703(H) 22 - 275 ng/mL 03/20/2020 9:49 AM CDT [facility] Blood BLOOD SPECIMEN / Unknown Lab Venipuncture / Unknown 03/20/2020 8:44 AM CDT 03/20/2020 9:04 AM CDT Kenneth Martins MD LAB - CHEMISTRY CINTHIA [place] [address] [address], [facility] [phone] * (ABNORMAL) ERYTHROCYTE SEDIMENTATION RATE (03/20/2020 8:44 AM CDT) Pathologist [facility], [place] Erythrocyte Sedimentation Rate Westergren 51(H) 0 - 15 MM/HR 03/20/2020 9:41 AM CDT [facility] Blood BLOOD SPECIMEN / Unknown Lab Venipuncture / Unknown 03/20/2020 8:44 AM CDT 03/20/2020 9:04 AM CDT Kenneth Martins MD LAB - HEMATOLOGY ORD [place]ONIE [address] [address], [facility] [phone] * (ABNORMAL) D-DIMER (03/20/2020 8:44 AM CDT) D-Dimer Quantitative 1.90(H) <=0.50 mcg/mL FEU 03/20/2020 9:25 AM CDT [facility] Comment: In the absence [...] Haematol. 145:24-33,2009. Blood BLOOD SPECIMEN / Unknown Lab Venipuncture / Unknown 03/20/2020 8:44 AM CDT 03/20/2020 9:04 AM CDT Kenneth Martins MD LAB - COAGULATION OR DERABLES [address] [address], [facility] [phone] * PHOSPHORUS BLOOD (03/20/2020 8:44 AM CDT) Phosphorus 3.7 2.3 - 4.7 mg/dL 03/20/2020 9:30 AM CDT [facility] Blood BLOOD SPECIMEN / Unknown Lab Venipuncture / Unknown 03/20/2020 8:44 AM CDT 03/20/2020 9:04 AM CDT Tiffanie Alvess TRANSCRIBING OPERATOR [facility] LAB - CHEMISTRY ORDERABLES Performing Organization Address [facility]/ZIP Co de Phone Number [address] [address], [facility] [phone] * MAGNESIUM BLOOD (03/20/2020 8:44 AM CDT) Magnesium 1.9 1.6 - 2.6 mg/dL 03/20/2020 9:30 AM [facility] Blood BLOOD SPECIMEN / Unknown Lab Venipuncture / Unknown 03/20/2020 8:44 AM CDT 03/20/2020 9:04 AM CDT Tiffanie Seymour Patrick [facility] LAB - CHEMISTRY ORDERABLES Performing Organization Address City/[facility]/ZIP Co de Phone Number [address] [address], [facility] [phone] * (ABNORMAL) COMPREHENSIVE METABOLIC PANEL (03/20/2020 8:44 AM CDT) BUN 23 7 - 26 mg/dL 03/20/2020 9:30 AM [facility] Creatinine 0.8 0.6 - 1.2 mg/dL 03/20/2020 9:30 AM [facility] Sodium 141 136 - 145 mmol/L 03/20/2020 9:30 AM [facility] Potassium 4.4 3.5 - 4.5 mmol/L 03/20/2020 9:30 AM [facility] Chloride 100 98 - 107 mmol/L 03/20/2020 9:30 AM [facility] CO2 31(H) 22 - 29 mmol/L 03/20/2020 9:30 AM [facility] Glucose 79 70 - 115 mg/dL 03/20/2020 9:30 AM [facility] Calcium 8.7 8.4 - 10.2 mg/dL 03/20/2020 9:30 AM [facility] Protein Total 5.6(L) 6.0 - 8.3 g/dL 03/20/2020 9:30 AM [facility] Albumin 2.5(L) 3.4 - 5.0 g/dL 03/20/2020 9:30 AM [facility] Bilirubin Total 0.3 0.2 - 1.2 mg/dL 03/20/2020 9:30 AM [facility] Alkaline Phosphatase 94 40 - 150 Units/L 03/20/2020 9:30 AM [facility] ALT 37 0 - 55 Units/L 03/20/2020 9:30 AM [facility] AST 17 5 - 34 Units/L 03/20/2020 9:30 AM [facility] Anion Gap 14 8 - 18 03/20/2020 9:30 AM [facility] BUN/Creatinine Ratio 29(H) 7 - 23 03/20/2020 9:30 AM [facility] Osmolality Calculated 295 270 - 300 mOsm/kg 03/20/2020 9:30 AM [facility] Albumin/Globulin Ratio 0.8(L) 1.1 - 2.3 03/20/2020 9:30 AM [facility] eGFR >60 >60 mL/min/1.7 3 m2 03/20/2020 9:30 AM [facility] Blood BLOOD SPECIMEN / Unknown Lab Venipuncture / Unknown 03/20/2020 8:44 AM CDT 03/20/2020 9:04 AM T Tiffanie Nguyen TRANSCRIBING OPERATOR [facility] LAB - CHEMISTRY ORDERABLES [address] [address] [phone] * (ABNORMAL) CBC W AUTO DIFFERENTIAL (03/20/2020 8:44 AM CDT) WBC 16.3(H) 3.5 - 10.5 10? 3 /uL 03/20/2020 9:25 AM [facility] Comment:The WBC count is cor rected by the instrument for nRBC's RBC 3.70(L) 4.30 - 5.70 10? 6 /uL 03/20/2020 9:25 AM [facility] Hemoglobin 10.8(L) 13.5 - 17.5 g/dL 03/20/2020 9:25 AM [facility] Hematocrit 33.0(L) 39.0 - 50.0 % 03/20/2020 9:25 AM [facility] MCV 89.2 81.0 - 97.0 fL 03/20/2020 9:25 AM [facility] MCH 29.2 28.0 - 34.0 pg 03/20/2020 9:25 AM [facility] MCHC 32.7 32.0 - 36.0 g/dL 03/20/2020 9:25 AM [facility] Platelet Count 181 150 - 400 10? 3 /uL 03/20/2020 9:25 AM [facility] RDW-SD 66.4(H) 36.0 - 50.0 fL 03/20/2020 9:25 AM [facility] RDW-CV 22.0(H) 11.2 - 14.8 % 03/20/2020 9:25 AM [facility] MPV 03/20/2020 9:25 AM [facility] Comment:NOT MEASURED nRBC Absolute 1.22(H) 0 10? 3 /uL 03/20/2020 9:25 AM [facility] nRBC Auto 7.5(H) 0 /100 WBC 03/20/2020 9:25 AM [facility] Neutrophils % 83.2(H) 35.0 - 70.0 % 03/20/2020 9:25 AM [facility] Lymphocytes % 4.9(L) 19.7 - 55.1 % 03/20/2020 9:25 AM [facility] Monocytes % 4.2 3.0 - 15.0 % 03/20/2020 9:25 AM [facility] Eosinophils % 2.3 0.0 - 6.0 % 03/20/2020 9:25 AM [facility] Basophil % 0.4 0.0 - 1.5 % 03/20/2020 9:25 AM [facility] Neutrophils Absolute 13.6(H) 1.6 - 7.0 10? 3 /uL 03/20/2020 9:25 AM T [facility] Lymphocyte Absolute 0.8 0.8 - 2.9 10? 3 /uL 03/20/2020 9:25 AM [facility] Monocytes Absolute 0.69(H) 0.14 - 0.66 10? 3 /uL 03/20/2020 9:25 AM T [facility] Eosinophils Absolute 0.37 0.00 - 0.45 10? 3 /uL 03/20/2020 9:25 AM T [facility] Basophils Absolute 0.06 0.00 - 0.06 10? 3 /uL 03/20/2020 9:25 AM [facility] Immature Granulocytes % 5.0(H) 0.0 - 1.0 % 03/20/2020 9:25 AM [facility] Blood BLOOD SPECIMEN / Unknown Lab Venipuncture / Unknown 03/20/2020 8:44 AM CDT 03/20/2020 9:04 AM CDT Tiffanie Nguyen TRANSCRIBING OPERATOR [facility] LAB - HEMATOLOG Y ORDERABLES [address] [address], [facility] [phone] * (ABNORMAL) DIFFERENTIAL MANUAL (03/18/2020 11:57 PM CDT) WBC (corrected for NRBC) 16.8 10? 3 /uL 03/19/2020 1:30 AM [facility] Total Cell Count 100 03/19/20 20 1:30 AM [facility] Neutrophils Absolute Manual 15.96(H) 1.60 - 7.00 10? 3 /uL 03/19/2020 1:30 AM [facility] Comment:(BANDS+SEGS) x WBC = NEUT # (ANC) Lymphocyte Absolute Manual 0.17(L) 0.80 - 2.90 10? 3 /uL 03/19/2020 1:30 AM [facility] Monocytes Absolute Manual 0.50 0.14 - 0.66 10? 3 /uL 03/19/2020 1:30 AM [facility] Neutrophil % Manual 95(H) 30 - 60 % 03/19/2020 1:30 AM [facility] Lymphocyte % Manual 1(L) 20 - 45 % 03/19/2020 1:30 AM [facility] Monocytes % Manual 3 2 - 10 % 03/19/2020 1:30 AM T [facility] Metamyelocyte % Manual 1(H) 0 % 03/19/2020 1:30 AM T [facility] nRBC Manual 10(H) 0 /100 WBC 03/19/2020 1:30 AM [facility] Platelet Estimate Adequate Adequate 020 1:30 AM T [facility] Anisocytosis 1+(A) None 03/19/2020 1:30 AM [facility] Hypochromia 1+(A) None 03/19/2020 1:30 AM [facility] Target Cells 1+(A) None 03/19/2020 1:30 AM T [facility] Blood BLOOD SPECIMEN / Unknown Lab Venipuncture / Unknown 03/18/2020 11:57 PM CDT 03/19/2020 12:31 AM CDT Tiffanie Nguyen TRANSCRIBING OPERATOR [facility] LAB - HEMATOLOG Y ORDERABLES [address] [address], [place] [phone] * (ABNORMAL) C-REACTIVE PROTEIN (03/18/2020 11:57 PM CDT) C-Reactive Protein 1.2(H) <=0.5 mg/dL 03/19/2020 12:58 AM CDT [facility] Blood BLOOD SPECIMEN / Unknown Lab Venipuncture / Unknown 03/18/2020 11:57 PM CDT 03/19/2020 12:31 AM CDT Savanah Bolton TRANSCRIBING OPERATOR [facility] LAB - CHEMISTRY ORDE RABLES [address] [address] [phone] * PHOSPHORUS BLOOD (03/18/2020 11:57 PM CDT) Pathologist [facility] [place] Phosphorus 3.4 2.3 - 4.7 mg/dL 03/19/2020 1:13 AM CDT [facility] Blood BLOOD SPECIMEN / Unknown Lab Venipuncture / Unknown 03/18/2020 11:57 PM CDT 03/19/2020 12:31 AM CDT Lara Patrick [facility] LAB - CHEMISTRY ORDERABLES [address] [address] [phone] * MAGNESIUM BLOOD (03/18/2020 11:57 PM CDT) [facility] Magnesium 2.0 1.6 - 2.6 mg/dL 03/19/2020 1:13 AM CDT [facility] Blood BLOOD SPECIMEN / Unknown Lab Venipuncture / Unknown 03/18/2020 11:57 PM CDT 03/19/2020 12:31 AM CDT Tiffanie Nguyen [facility] LAB - CHEMISTRY ORDERABLES Performing Organization Address [facility]/ZIP Co de Phone Number [address] [address], [facility] [phone] * (ABNORMAL) COMPREHENSIVE METABOLIC PANEL (03/18/2020 11:57 PM CDT) Pathologist [facility] [place] BUN 19 7 - 26 mg/dL 03/19/2020 1:13 AM CDT [facility] Creatinine 0.8 0.6 - 1.2 mg/dL 03/19/2020 1:13 AM CDT [facility] Sodium 144 136 - 145 mmol/L 03/19/2020 1:13 AM CDT [facility] Potassium 4.3 3.5 - 4.5 mmol/L 03/19/2020 1:13 AM T [facility] Chloride 100 98 - 107 mmol/L 03/19/2020 1:13 AM T [facility] CO2 28 22 - 29 mmol/L 03/19/2020 1:13 AM [facility] Glucose 129(H) 70 - 115 mg/dL 03/19/2020 1:13 AM [facility] Calcium 8.3(L) 8.4 - 10.2 mg/dL 03/19/2020 1:13 AM [facility] Protein Total 5.4(L) 6.0 - 8.3 g/dL 03/19/2020 1:13 AM [facility] Albumin 2.4(L) 3.4 - 5.0 g/dL 03/19/2020 1:13 AM [facility] Bilirubin Total 0.2 0.2 - 1.2 mg/dL 03/19/2020 1:13 AM [facility] Alkaline Phosphatase 99 40 - 150 Units/L 03/19/2020 1:13 AM [facility] ALT 43 0 - 55 Units/L 03/19/2020 1:13 AM [facility] AST 15 5 - 34 Units/L 03/19/2020 1:13 AM [facility] Anion Gap 20(H) 8 - 18 03/19/2020 1:13 AM [facility] BUN/Creatinine Ratio 24(H) 7 - 23 03/19/2020 1:13 AM [facility] Osmolality Calculated 302(H) 270 - 300 mOsm/kg 03/19/2020 1:13 AM [facility] Albumin/Globulin Ratio 0.8(L) 1.1 - 2.3 03/19/2020 1:13 AM [facility] eGFR >60 >60 mL/min/1.7 3 m2 03/19/2020 1:13 AM [facility] Blood BLOOD SPECIMEN / Unknown Lab Venipuncture / Unknown 03/18/2020 11:57 PM CDT 03/19/2020 12:31 AM CDT Tiffanie Nguyen TRANSCRIBING OPERATOR [facility] LAB - CHEMISTRY ORDERABLES [address] [address], [facility] [phone] * (ABNORMAL) CBC W AUTO DIFFERENTIAL (03/18/2020 11:57 PM CDT) WBC 16.8(H) 3.5 - 10.5 10? 3 /uL 03/19/2020 1:01 AM [facility] Comment:The WBC count is cor rected by the instrument for nRBC's RBC 3.42(L) 4.30 - 5.70 10? 6 /uL 03/19/2020 1:01 AM [facility] Hemoglobin 10.0(L) 13.5 - 17.5 g/dL 03/19/2020 1:01 AM [facility] Hematocrit 30.1(L) 39.0 - 50.0 % 03/19/2020 1:01 AM [facility] MCV 88.0 81.0 - 97.0 fL 03/19/2020 1:01 AM [facility] MCH 29.2 28.0 - 34.0 pg 03/19/2020 1:01 AM [facility] MCHC 33.2 32.0 - 36.0 g/dL 03/19/2020 1:01 AM [facility] Platelet Count 188 150 - 400 10? 3 /uL 03/19/2020 1:01 AM [facility] RDW-SD 62.7(H) 36.0 - 50.0 fL 03/19/2020 1:01 AM [facility] RDW-CV 21.2(H) 11.2 - 14.8 % 03/19/2020 1:01 AM [facility] MPV 03/19/2020 1:01 AM [facility] Comment:NOT MEASURED nRBC Absolute 1.83(H) 0 10? 3 /uL 03/19/2020 1:01 AM [facility] nRBC Auto 10.9(H) 0 /100 WBC 03/19/2020 1:01 AM [facility] Blood BLOOD SPECIMEN / Unknown Lab Venipuncture / Unknown 03/18/2020 11:57 PM CDT 03/19/2020 12:31 AM T Tiffanie Nguyen TRANSCRIBING OPERATOR [facility] LAB - HEMATOLOG Y ORDERABLES [address] [address], [place] [phone] * (ABNORMAL) RBC MORPHOLOGY (03/18/2020 12:14 AM CDT) Pathologist [facility] [place] Anisocytosis 1+(A) None 03/18/2020 2:31 AM CDT [facility] Macrocytosis 1+(A) None 03/18/2020 2:31 AM CDT [facility] Target Cells 2+(A) None 03/18/2020 2:31 AM CDT [facility] Schistocytes Occasional (A) None 03/18/2020 2:31 AM CDT [facility] Blood BLOOD SPECIMEN / Unknown Lab Venipuncture / Unknown 03/18/2020 12:14 AM CDT 03/18/2020 1:05 AM CDT Tiffanie Nguyen TRANSCRIBING OPERATOR [facility] LAB - HEMATOLOG Y ORDERABLES [address] [phone] * (ABNORMAL) C-REACTIVE PROTEIN (03/18/2020 12:14 AM CDT) [facility] C-Reactive Protein 0.7(H) <=0.5 mg/dL 03/18/2020 1:25 AM CDT [facility] Blood BLOOD SPECIMEN / Unknown Lab Venipuncture / Unknown 03/18/2020 12:14 AM CDT 03/18/2020 1:05 AM CDT Savanah Bolton TRANSCRIBING OPERATOR [facility] LAB - CHEMISTRY ORDE RABLES [address] [address], [facility] [phone] * (ABNORMAL) LDH BLOOD (03/18/2020 12:14 AM CDT) Pathologist [facility] [place] LDH Total 384(H) 125 - 243 Units/L 03/18/2020 1:38 AM CDT [facility] Blood BLOOD SPECIMEN / Unknown Lab Venipuncture / Unknown 03/18/2020 12:14 AM CDT 03/18/2020 1:05 AM CDT Kenneth Martins MD LAB - CHEMISTRY CINTHIA [place] Performing Organization Address [facility]/ZIP Co de Phone Number [address] [address], [facility] [phone] * (ABNORMAL) FERRITIN (03/18/2020 12:14 AM CDT) Pathologist [facility] [place] Ferritin 775(H) 22 - 275 ng/mL 03/18/2020 1:47 AM CDT [facility] Blood BLOOD SPECIMEN / Unknown Lab Venipuncture / Unknown 03/18/2020 12:14 AM CDT 03/18/2020 1:05 AM CDT Kenneth Martins MD LAB - CHEMISTRY CINTHIA [place] Performing Organization Address [facility] Co de Phone Number [address] [address], [facility] [phone] * (ABNORMAL) ERYTHROCYTE SEDIMENTATION RATE (03/18/2020 12:14 AM CDT) [facility] Erythrocyte Sedimentation Rate Westergren 22(H) 0 - 15 MM/HR 03/18/2020 2:31 AM CDT [facility] Blood BLOOD SPECIMEN / Unknown Lab Venipuncture / Unknown 03/18/2020 12:14 AM CDT 03/18/2020 1:05 AM CDT Kenneth Martins MD LAB - HEMATOLOGY ORD [place]ONIE Performing Organization Address [facility] Co de Phone Number [address] [address], [facility] [phone] * (ABNORMAL) D-DIMER (03/18/2020 12:14 AM CDT) [facility] D-Dimer Quantitative 1.27(H) <=0.50 mcg/mL FEU 03/18/2020 1:22 AM CDT [facility] Comment: In the absence of clinical [...] Haematol. 145:24-33,2009. Blood BLOOD SPECIMEN / Unknown Lab Venipuncture / Unknown 03/18/2020 12:14 AM CDT 03/18/2020 1:05 AM CDT Kenneth Martins MD LAB - COAGULATION OR DERABLES [facility] [address] [address] [phone] * PHOSPHORUS BLOOD (03/18/2020 12:14 AM CDT) Phosphorus 3.3 2.3 - 4.7 mg/dL 03/18/2020 1:38 AM CDT [facility] Blood BLOOD SPECIMEN / Unknown Lab Venipuncture / Unknown 03/18/2020 12:14 AM CDT 03/18/2020 1:05 AM CDT Tiffanie Nguyen TRANSCRIBING OPERATOR [facility] LAB - CHEMISTRY ORDERABLES [address] [address], [facility] [phone] * MAGNESIUM BLOOD (03/18/2020 12:14 AM CDT) Pathologist [facility] [place] Magnesium 2.0 1.6 - 2.6 mg/dL 03/18/2020 1:38 AM [facility] Blood BLOOD SPECIMEN / Unknown Lab Venipuncture / Unknown 03/18/2020 12:14 AM CDT 03/18/2020 1:05 AM CDT Tiffanie Nguyen TRANSCRIBING OPERATOR [facility] LAB - CHEMISTRY ORDERABLES [address] [address], [facility] [phone] * (ABNORMAL) COMPREHENSIVE METABOLIC PANEL (03/18/2020 12:14 AM CDT) Pathologist [facility] [place] BUN 21 7 - 26 mg/dL 03/18/2020 1:38 AM [facility] Creatinine 0.8 0.6 - 1.2 mg/dL 03/18/2020 1:38 AM [facility] Sodium 140 136 - 145 mmol/L 03/18/2020 1:38 AM [facility] Potassium 4.8(H) 3.5 - 4.5 mmol/L 03/18/2020 1:38 AM [facility] Chloride 100 98 - 107 mmol/L 03/18/2020 1:38 AM [facility] CO2 28 22 - 29 mmol/L 03/18/2020 1:38 AM [facility] Glucose 124(H) 70 - 115 mg/dL 03/18/2020 1:38 AM [facility] Calcium 8.1(L) 8.4 - 10.2 mg/dL 03/18/2020 1:38 AM [facility] Protein Total 5.4(L) 6.0 - 8.3 g/dL 03/18/2020 1:38 AM [facility] Albumin 2.2(L) 3.4 - 5.0 g/dL 03/18/2020 1:38 AM [facility] Bilirubin Total 0.2 0.2 - 1.2 mg/dL 03/18/2020 1:38 AM [facility] Alkaline Phosphatase 105 40 - 150 Units/L 03/18/2020 1:38 AM [facility] ALT 44 0 - 55 Units/L 03/18/2020 1:38 AM [facility] AST 19 5 - 34 Units/L 03/18/2020 1:38 AM [facility] Anion Gap 17 8 - 18 03/18/2020 1:38 AM [facility] BUN/Creatinine Ratio 26(H) 7 - 23 03/18/2020 1:38 AM [facility] Osmolality Calculated 294 270 - 300 mOsm/kg 03/18/2020 1:38 AM [facility] Albumin/Globulin Ratio 0.7(L) 1.1 - 2.3 03/18/2020 1:38 AM [facility] eGFR >60 >60 mL/min/1.7 3 m2 03/18/2020 1:38 AM [facility] Blood BLOOD SPECIMEN / Unknown Lab Venipuncture / Unknown 03/18/2020 12:14 AM CDT 03/18/2020 1:05 AM T Tiffanie Nguyen TRANSCRIBING OPERATOR [facility] LAB - CHEMISTRY ORDERABLES [address] [address] [phone] * (ABNORMAL) CBC W AUTO DIFFERENTIAL (03/18/2020 12:14 AM CDT) WBC 20.4(H) 3.5 - 10.5 10? 3 /uL 03/18/2020 1:23 AM [facility] Comment:The WBC count is cor rected by the instrument for nRBC's RBC 3.41(L) 4.30 - 5.70 10? 6 /uL 03/18/2020 1:23 AM [facility] Hemoglobin 9.9(L) 13.5 - 17.5 g/dL 03/18/2020 1:23 AM [facility] Hematocrit 29.4(L) 39.0 - 50.0 % 03/18/2020 1:23 AM [facility] MCV 86.2 81.0 - 97.0 fL 03/18/2020 1:23 AM [facility] MCH 29.0 28.0 - 34.0 pg 03/18/2020 1:23 AM [facility] MCHC 33.7 32.0 - 36.0 g/dL 03/18/2020 1:23 AM [facility] Platelet Count 188 150 - 400 10? 3 /uL 03/18/2020 1:23 AM [facility] RDW-SD 58.7(H) 36.0 - 50.0 fL 03/18/2020 1:23 AM [facility] RDW-CV 20.4(H) 11.2 - 14.8 % 03/18/2020 1:23 AM [facility] MPV 03/18/2020 1:23 AM [facility] Comment:Test Not Performed. nRBC Absolute 1.94(H) 0 10? 3 /uL 03/18/2020 1:23 AM [facility] nRBC Auto 9.5(H) 0 /100 WBC 03/18/2020 1:23 AM [facility] Neutrophils % 85.0(H) 35.0 - 70.0 % 03/18/2020 1:23 AM [facility] Lymphocytes % 5.1(L) 19.7 - 55.1 % 03/18/2020 1:23 AM [facility] Monocytes % 5.5 3.0 - 15.0 % 03/18/2020 1:23 AM [facility] Eosinophils % 0.0 0.0 - 6.0 % 03/18/2020 1:23 AM [facility] Basophil % 0.3 0.0 - 1.5 % 03/18/2020 1:23 AM [facility] Neutrophils Absolute 17.3(H) 1.6 - 7.0 10? 3 /uL 03/18/2020 1:23 AM [facility] Lymphocyte Absolute 1.0 0.8 - 2.9 10? 3 /uL 03/18/2020 1:23 AM [facility] Monocytes Absolute 1.12(H) 0.14 - 0.66 10? 3 /uL 03/18/2020 1:23 AM CDT [facility] Eosinophils Absolute 0.01 0.00 - 0.45 10? 3 /uL 03/18/2020 1:23 AM CDT [facility] Basophils Absolute 0.06 0.00 - 0.06 10? 3 /uL 03/18/2020 1:23 AM CDT [facility] Immature Granulocytes % 4.1(H) 0.0 - 1.0 % 03/18/2020 1:23 AM CDT [facility] Blood BLOOD SPECIMEN / Unknown Lab Venipuncture / Unknown 03/18/2020 12:14 AM CDT 03/18/2020 1:05 AM CDT Tiffanie Nguyen [facility] LAB - HEMATOLOG Y ORDERABLES Performing Organization Address City/[facility]/ZIP Co de Phone Number [address] [address], [facility] [phone] * (ABNORMAL) C-REACTIVE PROTEIN (03/16/2020 11:59 PM CDT) C-Reactive Protein 1.1(H) <=0.5 mg/dL 03/17/2020 1:25 AM CDT [facility] Blood BLOOD SPECIMEN / Unknown Lab Venipuncture / Unknown 03/16/2020 11:59 PM CDT 03/17/2020 1:10 AM CDT Savanah Bolton TRANSCRIBING OPERATOR [facility] LAB - CHEMISTRY ORDE RABLES [address] [address], [facility] [phone] * PHOSPHORUS BLOOD (03/16/2020 11:59 PM CDT) Phosphorus 3.9 2.3 - 4.7 mg/dL 03/17/2020 1:36 AM CDT [facility] Blood BLOOD SPECIMEN / Unknown Lab Venipuncture / Unknown 03/16/2020 11:59 PM CDT 03/17/2020 1:10 AM CDT Tiffanie Nguyen TRANSCRIBING OPERATOR [facility] LAB - CHEMISTRY ORDERABLES [address] [address], [facility] [phone] * MAGNESIUM BLOOD (03/16/2020 11:59 PM CDT) Magnesium 2.0 1.6 - 2.6 mg/dL 03/17/2020 1:36 AM [facility] Blood BLOOD SPECIMEN / Unknown Lab Venipuncture / Unknown 03/16/2020 11:59 PM CDT 03/17/2020 1:10 AM CDT Tiffanie Nguyen TRANSCRIBING OPERATOR [facility] LAB - CHEMISTRY ORDERABLES Performing Organization Address City/[facility]/ZIP Co de Phone Number [address] [address], [facility] [phone] * (ABNORMAL) COMPREHENSIVE METABOLIC PANEL (03/16/2020 11:59 PM CDT) BUN 19 7 - 26 mg/dL 03/17/2020 1:36 AM [facility] Creatinine 0.8 0.6 - 1.2 mg/dL 03/17/2020 1:36 AM [facility] Sodium 138 136 - 145 mmol/L 03/17/2020 1:36 AM [facility] Potassium 4.5 3.5 - 4.5 mmol/L 03/17/2020 1:36 AM [facility] Chloride 98 98 - 107 mmol/L 03/17/2020 1:36 AM [facility] CO2 29 22 - 29 mmol/L 03/17/2020 1:36 AM [facility] Glucose 124(H) 70 - 115 mg/dL 03/17/2020 1:36 AM [facility] Calcium 8.5 8.4 - 10.2 mg/dL 03/17/2020 1:36 AM [facility] Protein Total 5.6(L) 6.0 - 8.3 g/dL 03/17/2020 1:36 AM [facility] Albumin 2.3(L) 3.4 - 5.0 g/dL 03/17/2020 1:36 AM [facility] Bilirubin Total 0.3 0.2 - 1.2 mg/dL 03/17/2020 1:36 AM [facility] Alkaline Phosphatase 106 40 - 150 Units/L 03/17/2020 1:36 AM [facility] ALT 45 0 - 55 Units/L 03/17/2020 1:36 AM [facility] AST 18 5 - 34 Units/L 03/17/2020 1:36 AM [facility] Anion Gap 16 8 - 18 03/17/2020 1:36 AM [facility] BUN/Creatinine Ratio 24(H) 7 - 23 03/17/2020 1:36 AM [facility] Osmolality Calculated 290 270 - 300 mOsm/kg 03/17/2020 1:36 AM [facility] Albumin/Globulin Ratio 0.7(L) 1.1 - 2.3 03/17/2020 1:36 AM [facility] eGFR >60 >60 mL/min/1.7 3 m2 03/17/2020 1:36 AM [facility] Blood BLOOD SPECIMEN / Unknown Lab Venipuncture / Unknown 03/16/2020 11:59 PM CDT 03/17/2020 1:10 AM CDT Lara Patrick TRANSCRIBING OPERATOR [facility] LAB - CHEMISTRY ORDERABLES Performing Organization Address [facility]/State[facility] Co de Phone Number [address] [phone] [phone] * (ABNORMAL) CBC W AUTO DIFFERENTIAL (03/16/2020 11:59 PM CDT) WBC 18.4(H) 3.5 - 10.5 10? 3 /uL 03/17/2020 1:33 AM [facility] Comment:The WBC count is cor rected by the instrument for nRBC's RBC 3.54(L) 4.30 - 5.70 10? 6 /uL 03/17/2020 1:33 AM [facility] Hemoglobin 10.0(L) 13.5 - 17.5 g/dL 03/17/2020 1:33 AM [facility] Hematocrit 30.1(L) 39.0 - 50.0 % 03/17/2020 1:33 AM [facility] MCV 85.0 81.0 - 97.0 fL 03/17/2020 1:33 AM [facility] MCH 28.2 28.0 - 34.0 pg 03/17/2020 1:33 AM [facility] MCHC 33.2 32.0 - 36.0 g/dL 03/17/2020 1:33 AM [facility] Platelet Count 193 150 - 400 10? 3 /uL 03/17/2020 1:33 AM [facility] [facility] RDW-SD 57.3(H) 36.0 - 50.0 fL 03/17/2020 1:33 AM [facility] RDW-CV 19.6(H) 11.2 - 14.8 % 03/17/2020 1:33 AM [facility] MPV 03/17/2020 1:33 AM [facility] Comment:NOT MEASURED nRBC Absolute 1.07(H) 0 10? 3 /uL 03/17/2020 1:33 AM [facility] nRBC Auto 5.8(H) 0 /100 WBC 03/17/2020 1:33 AM [facility] Comment:Confirmed by repeat analysis. Neutrophils % 86.5(H) 35.0 - 70.0 % 03/17/2020 1:33 AM [facility] Lymphocytes % 4.9(L) 19.7 - 55.1 % 03/17/2020 1:33 AM [facility] Monocytes % 4.2 3.0 - 15.0 % 03/17/2020 1:33 AM [facility] Eosinophils % 0.0 0.0 - 6.0 % 03/17/2020 1:33 AM [facility] Basophil % 0.2 0.0 - 1.5 % 03/17/2020 1:33 AM [facility] Neutrophils Absolute 15.9(H) 1.6 - 7.0 10? 3 /uL 03/17/2020 1:33 AM [facility] Lymphocyte Absolute 0.9 0.8 - 2.9 10? 3 /uL 03/17/2020 1:33 AM CDT [facility] Monocytes Absolute 0.77(H) 0.14 - 0.66 10? 3 /uL 03/17/2020 1:33 AM CDT [facility] Eosinophils Absolute 0.00 0.00 - 0.45 10? 3 /uL 03/17/2020 1:33 AM CDT [facility] Basophils Absolute 0.03 0.00 - 0.06 10? 3 /uL 03/17/2020 1:33 AM CDT [facility] Immature Granulocytes % 4.2(H) 0.0 - 1.0 % 03/17/2020 1:33 AM CDT [facility] Blood BLOOD SPECIMEN / Unknown Lab Venipuncture / Unknown 03/16/2020 11:59 PM CDT 03/17/2020 1:10 AM CDT Tiffanie Nguyen TRANSCRIBING OPERATOR [facility] LAB - HEMATOLOG Y ORDERABLES [address] [address], [facility] [phone] * (ABNORMAL) C-REACTIVE PROTEIN (03/16/2020 12:45 AM CDT) Pathologist [facility] [place] C-Reactive Protein 1.6(H) <=0.5 mg/dL 03/16/2020 1:16 AM CDT [facility] Blood BLOOD SPECIMEN / Unknown Lab Venipuncture / Unknown 03/16/2020 12:45 AM CDT 03/16/2020 12:52 AM CDT Savanah Bolton [facility] LAB - CHEMISTRY ORDE RABLES [address] [address], [facility] [phone] * (ABNORMAL) LDH BLOOD (03/16/2020 12:45 AM CDT) Pathologist [facility] [place] LDH Total 407(H) 125 - 243 Units/L 03/16/2020 1:15 AM CDT [facility] Blood BLOOD SPECIMEN / Unknown Lab Venipuncture / Unknown 03/16/2020 12:45 AM CDT 03/16/2020 12:52 AM CDT Kenneth Martins MD LAB - CHEMISTRY [place] Performing Organization Address [facility]/ZIP Co de Phone Number [address] [address], [facility] [phone] * (ABNORMAL) FERRITIN (03/16/2020 12:45 AM CDT) Ferritin 688(H) 22 - 275 ng/mL 03/16/2020 1:29 AM CDT [facility] Blood BLOOD SPECIMEN / Unknown Lab Venipuncture / Unknown 03/16/2020 12:45 AM CDT 03/16/2020 12:52 AM CDT Kenneth Martins MD LAB - CHEMISTRY [place] Performing Organization Address [facility]/[place] [address], [facility] [phone] * (ABNORMAL) ERYTHROCYTE SEDIMENTATION RATE (03/16/2020 12:45 AM CDT) [facility] Erythrocyte Sedimentation Rate Westergren 45(H) 0 - 15 MM/HR 03/16/2020 1:07 AM CDT [facility] Blood BLOOD SPECIMEN / Unknown Lab Venipuncture / Unknown 03/16/2020 12:45 AM CDT 03/16/2020 12:52 AM CDT Kenneth Martins MD LAB - HEMATOLOGY [place] Performing Organization Address [facility]/ZIP Co de Phone Number [address] [address], [facility] [phone] * (ABNORMAL) D-DIMER (03/16/2020 12:45 AM CDT) Pathologist [facility] [place] D-Dimer Quantitative 1.68(H) <=0.50 mcg/mL FEU 03/16/2020 1:46 AM CDT [facility] Comment: In the absence of clinical [...] Haematol. 145:24-33,2009. Blood BLOOD SPECIMEN / Unknown Lab Venipuncture / Unknown 03/16/2020 12:45 AM CDT 03/16/2020 12:52 AM CDT Kenneth Martins MD LAB - COAGULATION OR DERABLES [address] [address] [phone] * PHOSPHORUS BLOOD (03/16/2020 12:45 AM CDT) Phosphorus 3.8 2.3 - 4.7 mg/dL 03/16/2020 1:47 AM CDT [facility] Blood BLOOD SPECIMEN / Unknown Lab Venipuncture / Unknown 03/16/2020 12:45 AM CDT 03/16/2020 12:52 AM CDT Tiffanie Nguyen TRANSCRIBING OPERATOR HEAD-SEWING DEMONSTR[employer] LAB - CHEMISTRY ORDERABLES [address] [address], [facility] [phone] * MAGNESIUM BLOOD (03/16/2020 12:45 AM CDT) Pathologist [facility] [place] Magnesium 2.3 1.6 - 2.6 mg/dL 03/16/2020 1:15 AM [facility] Blood BLOOD SPECIMEN / Unknown Lab Venipuncture / Unknown 03/16/2020 12:45 AM CDT 03/16/2020 12:52 AM CDT Tiffanie Nguyen TRANSCRIBING OPERATOR [facility] LAB - CHEMISTRY ORDERABLES [address] [address], [facility] [phone] * (ABNORMAL) COMPREHENSIVE METABOLIC PANEL (03/16/2020 12:45 AM CDT) [facility] BUN 18 7 - 26 mg/dL 03/16/2020 1:15 AM [facility] Creatinine 0.7 0.6 - 1.2 mg/dL 03/16/2020 1:15 AM [facility] Sodium 142 136 - 145 mmol/L 03/16/2020 1:15 AM [facility] Potassium 4.6(H) 3.5 - 4.5 mmol/L 03/16/2020 1:15 AM [facility] Chloride 103 98 - 107 mmol/L 03/16/2020 1:15 AM [facility] CO2 28 22 - 29 mmol/L 03/16/2020 1:15 AM [facility] Glucose 134(H) 70 - 115 mg/dL 03/16/2020 1:15 AM [facility] Calcium 8.2(L) 8.4 - 10.2 mg/dL 03/16/2020 1:15 AM [facility] Protein Total 5.2(L) 6.0 - 8.3 g/dL 03/16/2020 1:15 AM [facility] Albumin 2.1(L) 3.4 - 5.0 g/dL 03/16/2020 1:15 AM [facility] Bilirubin Total 0.3 0.2 - 1.2 mg/dL 03/16/2020 1:15 AM [facility] Alkaline Phosphatase 108 40 - 150 Units/L 03/16/2020 1:15 AM [facility] ALT 38 0 - 55 Units/L 03/16/2020 1:15 AM [facility] AST 15 5 - 34 Units/L 03/16/2020 1:15 AM [facility] Anion Gap 16 8 - 18 03/16/2020 1:15 AM [facility] BUN/Creatinine Ratio 26(H) 7 - 23 03/16/2020 1:15 AM [facility] Osmolality Calculated 298 270 - 300 mOsm/kg 03/16/2020 1:15 AM [facility] Albumin/Globulin Ratio 0.7(L) 1.1 - 2.3 03/16/2020 1:15 AM [facility] eGFR >60 >60 mL/min/1.7 3 m2 03/16/2020 1:15 AM [facility] Blood BLOOD SPECIMEN / Unknown Lab Venipuncture / Unknown 03/16/2020 12:45 AM CDT 03/16/2020 12:52 AM T Tiffanie Nguyen TRANSCRIBING OPERATOR HEAD-SEW[employer] DEMONSTRATOR LAB - CHEMISTRY ORDERABLES Performing Organization Address [facility]/State/ZIP Co de Phone Number [address] [address] [phone] * (ABNORMAL) CBC W AUTO DIFFERENTIAL (03/16/2020 12:45 AM CDT) WBC 17.8(H) 3.5 - 10.5 10? 3 /uL 03/16/2020 1:00 AM [facility] Comment:The WBC count is cor rected by the instrument for nRBC's RBC 3.24(L) 4.30 - 5.70 10? 6 /uL 03/16/2020 1:00 AM [facility] Hemoglobin 9.3(L) 13.5 - 17.5 g/dL 03/16/2020 1:00 AM [facility] Hematocrit 27.4(L) 39.0 - 50.0 % 03/16/2020 1:00 AM [facility] MCV 84.6 81.0 - 97.0 fL 03/16/2020 1:00 AM [facility] MCH 28.7 28.0 - 34.0 pg 03/16/2020 1:00 AM [facility] MCHC 33.9 32.0 - 36.0 g/dL 03/16/2020 1:00 AM [facility] Platelet Count 190 150 - 400 10? 3 /uL 03/16/2020 1:00 AM [facility] RDW-SD 54.3(H) 36.0 - 50.0 fL 03/16/2020 1:00 AM [facility] RDW-CV 18.9(H) 11.2 - 14.8 % 03/16/2020 1:00 AM [facility] MPV 03/16/2020 1:00 AM [facility] Comment:NOT MEASURED nRBC Absolute 0.47(H) 0 10? 3 /uL 03/16/2020 1:00 AM [facility] nRBC Auto 2.6(H) 0 /100 WBC 03/16/2020 1:00 AM [facility] Neutrophils % 87.3(H) 35.0 - 70.0 % 03/16/2020 1:00 AM [facility] Lymphocytes % 5.2(L) 19.7 - 55.1 % 03/16/2020 1:00 AM [facility] Monocytes % 3.5 3.0 - 15.0 % 03/16/2020 1:00 AM [facility] Eosinophils % 0.0 0.0 - 6.0 % 03/16/2020 1:00 AM [facility] Basophil % 0.2 0.0 - 1.5 % 03/16/2020 1:00 AM [facility] Neutrophils Absolute 15.6(H) 1.6 - 7.0 10? 3 /uL 03/16/2020 1:00 AM [facility] Lymphocyte Absolute 0.9 0.8 - 2.9 10? 3 /uL 03/16/2020 1:00 AM [facility] Monocytes Absolute 0.62 0.14 - 0.66 10? 3 /uL 03/16/2020 1:00 AM CDT [facility] Eosinophils Absolute 0.00 0.00 - 0.45 10? 3 /uL 03/16/2020 1:00 AM CDT [facility] Basophils Absolute 0.03 0.00 - 0.06 10? 3 /uL 03/16/2020 1:00 AM CDT [facility] Immature Granulocytes % 3.8(H) 0.0 - 1.0 % 03/16/2020 1:00 AM CDT [facility] Blood BLOOD SPECIMEN / Unknown Lab Venipuncture / Unknown 03/16/2020 12:45 AM CDT 03/16/2020 12:52 AM CDT Tiffanie MIMS LAB - HEMATOLOG Y ORDERABLES [address] [address], [facility] [phone] * (ABNORMAL) C-REACTIVE PROTEIN (03/15/2020 12:27 AM CDT) C-Reactive Protein 2.4(H) <=0.5 mg/dL 03/15/2020 1:45 AM CDT [facility] Blood BLOOD SPECIMEN / Unknown Lab Venipuncture / Unknown 03/15/2020 12:27 AM CDT 03/15/2020 1:35 AM CDT Joe Dennison MD LAB - CHEMISTRY [place] [address] [address], [facility] [phone] * PHOSPHORUS BLOOD (03/15/2020 12:27 AM CDT) Phosphorus 2.6 2.3 - 4.7 mg/dL 03/15/2020 1:09 AM CDT [facility] Blood BLOOD SPECIMEN / Unknown Lab Venipuncture / Unknown 03/15/2020 12:27 AM CDT 03/15/2020 12:53 AM CDT Tiffanie Nguyen TRANSCRIBING OPERATOR [employer] DEMONSTRATOR LAB - [place]MI[place] [address] [phone] * MAGNESIUM BLOOD (03/15/2020 12:27 AM CDT) Magnesium 1.9 1.6 - 2.6 mg/dL 03/15/2020 1:09 AM [facility] Blood BLOOD SPECIMEN / Unknown Lab Venipuncture / Unknown 03/15/2020 12:27 AM CDT 03/15/2020 12:53 AM CDT Tiffanie Nguyen TRANSCRIBING OPERATOR [employer]-SEWING DEMONSTRATOR LAB - CHEMISTRY ORDERABLES [address] [address], [place] [phone] * (ABNORMAL) COMPREHENSIVE METABOLIC PANEL (03/15/2020 12:27 AM CDT) BUN 13 7 - 26 mg/dL 03/15/2020 1:09 AM [facility] Creatinine 0.8 0.6 - 1.2 mg/dL 03/15/2020 1:09 AM [facility] Sodium 140 136 - 145 mmol/L 03/15/2020 1:09 AM [facility] Potassium 4.4 3.5 - 4.5 mmol/L 03/15/2020 1:09 AM [facility] Chloride 104 98 - 107 mmol/L 03/15/2020 1:09 AM [facility] CO2 27 22 - 29 mmol/L 03/15/2020 1:09 AM [facility] Glucose 124(H) 70 - 115 mg/dL 03/15/2020 1:09 AM [facility] Calcium 7.7(L) 8.4 - 10.2 mg/dL 03/15/2020 1:09 AM [facility] Protein Total 5.1(L) 6.0 - 8.3 g/dL 03/15/2020 1:09 AM [facility] Albumin 1.9(L) 3.4 - 5.0 g/dL 03/15/2020 1:09 AM [facility] Bilirubin Total 0.3 0.2 - 1.2 mg/dL 03/15/2020 1:09 AM [facility] Alkaline Phosphatase 114 40 - 150 Units/L 03/15/2020 1:09 AM [facility] ALT 40 0 - 55 Units/L 03/15/2020 1:09 AM [facility] AST 13 5 - 34 Units/L 03/15/2020 1:09 AM [facility] Anion Gap 13 8 - 18 03/15/2020 1:09 AM [facility] BUN/Creatinine Ratio 16 7 - 23 03/15/2020 1:09 AM [facility] Osmolality Calculated 292 270 - 300 mOsm/kg 03/15/2020 1:09 AM [facility] Albumin/Globulin Ratio 0.6(L) 1.1 - 2.3 03/15/2020 1:09 AM [facility] eGFR >60 >60 mL/min/1.7 3 m2 03/15/2020 1:09 AM [facility] Blood BLOOD SPECIMEN / Unknown Lab Venipuncture / Unknown 03/15/2020 12:27 AM CDT 03/15/2020 12:53 AM T Tiffanie Nguyen TRANSCRIBING OPERATOR [employer] DEMONSTRATOR LAB - CHEMISTRY ORDERABLES Performing Organization Address [facility]/State/ZIP Co de Phone Number [address] [address] [phone] * (ABNORMAL) CBC W AUTO DIFFERENTIAL (03/15/2020 12:27 AM [facility]) WBC 17.9(H) 3.5 - 10.5 10? 3 /uL 03/15/2020 12:59 AM [facility] Comment:The WBC count is cor rected by the instrument for nRBC's RBC 3.09(L) 4.30 - 5.70 10? 6 /uL 03/15/2020 12:59 AM [facility] Hemoglobin 8.8(L) 13.5 - 17.5 g/dL 03/15/2020 12:59 AM [facility] Hematocrit 26.2(L) 39.0 - 50.0 % 03/15/2020 12:59 AM [facility] MCV 84.8 81.0 - 97.0 fL 03/15/2020 12:59 AM [facility] MCH 28.5 28.0 - 34.0 pg 03/15/2020 12:59 AM [facility] MCHC 33.6 32.0 - 36.0 g/dL 03/15/2020 12:59 AM [facility] Platelet Count 181 150 - 400 10? 3 /uL 03/15/2020 12:59 AM [facility] RDW-SD 54.0(H) 36.0 - 50.0 fL 03/15/2020 12:59 AM [facility] RDW-CV 18.3(H) 11.2 - 14.8 % 03/15/2020 12:59 AM [facility] MPV 13.8(H) 9.3 - 12.8 fL 03/15/2020 12:59 AM [facility] nRBC Absolute 0.34(H) 0 10? 3 /uL 03/15/2020 12:59 AM [facility] nRBC Auto 1.9(H) 0 /100 WBC 03/15/2020 12:59 AM [facility] Neutrophils % 89.7(H) 35.0 - 70.0 % 03/15/2020 12:59 AM [facility] Lymphocytes % 3.1(L) 19.7 - 55.1 % 03/15/2020 12:59 AM [facility] Monocytes % 3.3 3.0 - 15.0 % 03/15/2020 12:59 AM [facility] Eosinophils % 0.1 0.0 - 6.0 % 03/15/2020 12:59 AM [facility] Basophil % 0.1 0.0 - 1.5 % 03/15/2020 12:59 AM [facility] Neutrophils Absolute 16.0(H) 1.6 - 7.0 10? 3 /uL 03/15/2020 12:59 AM CDT [facility] Lymphocyte Absolute 0.6(L) 0.8 - 2.9 10? 3 /uL 03/15/2020 12:59 AM CDT [facility] Monocytes Absolute 0.59 0.14 - 0.66 10? 3 /uL 03/15/2020 12:59 AM CDT [facility] Eosinophils Absolute 0.01 0.00 - 0.45 10? 3 /uL 03/15/2020 12:59 AM CDT [facility] Basophils Absolute 0.02 0.00 - 0.06 10? 3 /uL 03/15/2020 12:59 AM CDT [facility] Immature Granulocytes % 3.7(H) 0.0 - 1.0 % 03/15/2020 12:59 AM CDT [facility] Blood BLOOD SPECIMEN / Unknown Lab Venipuncture / Unknown 03/15/2020 12:27 AM CDT 03/15/2020 12:53 AM CDT Tiffanie Nguyen APRN-ERIKA LAB - HEMATOLOG [place] [address], [facility] [phone] * (ABNORMAL) C-REACTIVE PROTEIN (03/14/2020 4:35 AM CDT) Pathologist [facility] [place] C-Reactive Protein 4.0(H) <=0.5 mg/dL 03/14/2020 5:12 AM CDT [facility] Blood BLOOD SPECIMEN / Unknown Venipuncture / Unknown 03/14/2020 4:35 AM CDT 03/14/2020 4:38 AM CDT Joe Dennison MD LAB - CHEMISTRY [place] [address], [facility] [phone] * (ABNORMAL) DIFFERENTIAL MANUAL (03/14/2020 12:23 AM CDT) WBC (corrected for NRBC) 20.8 10? 3 /uL 03/14/2020 1:27 AM [facility] Total Cell Count 100 03/14/20 20 1:27 AM [facility] Neutrophils Absolute Manual 20.38(H) 1.60 - 7.00 10? 3 /uL 03/14/2020 1:27 AM [facility] Comment:(BANDS+SEGS) x WBC = NEUT # (ANC) Lymphocyte Absolute Manual 0.21(L) 0.80 - 2.90 10? 3 /uL 03/14/2020 1:27 AM [facility] Monocytes Absolute Manual 0.21 0.14 - 0.66 10? 3 /uL 03/14/2020 1:27 AM [facility] Neutrophil % Manual 98(H) 30 - 60 % 03/14/2020 1:27 AM [facility] Lymphocyte % Manual 1(L) 20 - 45 % 03/14/2020 1:27 AM [facility] Monocytes % Manual 1(L) 2 - 10 % 03/14/2020 1:27 AM [facility] Platelet Estimate Adequate Adequate 03/14/2020 1:27 AM [facility] Anisocytosis 1+(A) None 03/14/2020 1:27 AM [facility] Polychromasia Occasional( A) None 03/14/2020 1:27 AM [facility] [place] Bodies Occasional( A) None 03/14/2020 1:27 AM [facility] Target Cells 1+(A) None 03/14/2020 1:27 AM [facility] Ovalocytes 1+(A) None 03/14/2020 1:27 AM [facility] Blood BLOOD SPECIMEN / Unknown Venipuncture / Unknown 03/14/2020 12:23 AM CDT 03/14/2020 12:42 AM CDT Tiffanie Nguyen APRN-SEWING DEMONSTRATOR LAB - HEMATOLOG Y ORDERABLES [address] [address], [facility] [phone] * (ABNORMAL) LDH BLOOD (03/14/2020 12:23 AM CDT) [facility] [place] LDH Total 435(H) 125 - 243 Units/L 03/14/2020 1:05 AM CDT [facility] Blood BLOOD SPECIMEN / Unknown Venipuncture / Unknown 03/14/2020 12:23 AM CDT 03/14/2020 12:42 AM CDT Kenneth Martins MD LAB - CHEMISTRY [place]IA [place] [phone], [facility] [phone] * (ABNORMAL) FERRITIN (03/14/2020 12:23 AM CDT) [facility] Ferritin 782(H) 22 - 275 ng/mL 03/14/2020 1:27 AM CDT [facility] Blood BLOOD SPECIMEN / Unknown Venipuncture / Unknown 03/14/2020 12:23 AM CDT 03/14/2020 12:42 AM CDT Kenneth Martins MD LAB - CHEMISTRY [place] Performing Organization Address [facility]/ZIP Co de Phone Number [address] [address], [facility] [phone] * (ABNORMAL) ERYTHROCYTE SEDIMENTATION RATE (03/14/2020 12:23 AM CDT) [facility] Erythrocyte Sedimentation Rate Westergren 60(H) 0 - 15 MM/HR 03/14/2020 1:01 AM CDT [facility] Blood BLOOD SPECIMEN / Unknown Venipuncture / Unknown 03/14/2020 12:23 AM CDT 03/14/2020 12:42 AM CDT Kenneth Martins MD LAB - HEMATOLOGY [place] Performing Organization Address [facility]/ZIP Co de Phone Number [address] [address], [facility] [phone] * (ABNORMAL) D-DIMER (03/14/2020 12:23 AM CDT) [facility] D-Dimer Quantitative 2.13(H) <=0.50 mcg/mL FEU 03/14/2020 12:56 AM CDT [facility] Comment: In the absence of clinical [...] BLOOD SPECIMEN / Unknown Venipuncture / Unknown 03/14/2020 12:23 AM CDT 03/14/2020 12:42 AM CDT Kenneth Martins MD LAB - COAGULATION OR DERABLES [address] [address], [facility] [phone] * PHOSPHORUS BLOOD (03/14/2020 12:23 AM CDT) Phosphorus 3.4 2.3 - 4.7 mg/dL 03/14/2020 1:05 AM CDT [facility] Blood BLOOD SPECIMEN / Unknown Venipuncture / Unknown 03/14/2020 12:23 AM CDT 03/14/2020 12:42 AM CDT Tiffanie Nguyen TRANSCRIBING OPERATOR HEAD-SEWING DEMONSTRATOR LAB - CHEMISTRY ORDERABLES [address] [address], [facility] [phone] * MAGNESIUM BLOOD (03/14/2020 12:23 AM CDT) Magnesium 2.4 1.6 - 2.6 mg/dL 03/14/2020 1:05 AM [facility] Blood BLOOD SPECIMEN / Unknown Venipuncture / Unknown 03/14/2020 12:23 AM CDT 03/14/2020 12:42 AM CDT Tiffanie Nguyen TRANSCRIBING OPERATOR HEAD-SEWING DEMONSTRATOR LAB - CHEMISTRY ORDERABLES Performing Organization Address City/[facility]/ZIP Co de Phone Number [address] [address], [facility] [phone] * (ABNORMAL) COMPREHENSIVE METABOLIC PANEL (03/14/2020 12:23 AM CDT) BUN 21 7 - 26 mg/dL 03/14/2020 1:05 AM [facility] Creatinine 0.6 0.6 - 1.2 mg/dL 03/14/2020 1:05 AM [facility] Sodium 142 136 - 145 mmol/L 03/14/2020 1:05 AM [facility] Potassium 3.9 3.5 - 4.5 mmol/L 03/14/2020 1:05 AM [facility] Chloride 105 98 - 107 mmol/L 03/14/2020 1:05 AM [facility] CO2 28 22 - 29 mmol/L 03/14/2020 1:05 AM [facility] Glucose 143(H) 70 - 115 mg/dL 03/14/2020 1:05 AM [facility] Calcium 8.1(L) 8.4 - 10.2 mg/dL 03/14/2020 1:05 AM [facility] Protein Total 4.8(L) 6.0 - 8.3 g/dL 03/14/2020 1:05 AM [facility] Albumin 2.0(L) 3.4 - 5.0 g/dL 03/14/2020 1:05 AM [facility] Bilirubin Total 0.4 0.2 - 1.2 mg/dL 03/14/2020 1:05 AM [facility] Alkaline Phosphatase 125 40 - 150 Units/L 03/14/2020 1:05 AM [facility] ALT 49 0 - 55 Units/L 03/14/2020 1:05 AM [facility] AST 16 5 - 34 Units/L 03/14/2020 1:05 AM [facility] Anion Gap 13 8 - 18 03/14/2020 1:05 AM [facility] BUN/Creatinine Ratio 35(H) 7 - 23 03/14/2020 1:05 AM [facility] Osmolality Calculated 299 270 - 300 mOsm/kg 03/14/2020 1:05 AM [facility] Albumin/Globulin Ratio 0.7(L) 1.1 - 2.3 03/14/2020 1:05 AM [facility] eGFR >60 >60 mL/min/1.7 3 m2 03/14/2020 1:05 AM [facility] Blood BLOOD SPECIMEN / Unknown Venipuncture / Unknown 03/14/2020 12:23 AM CDT 03/14/2020 12:42 AM T Lara Buss TRANSCRIBING OPERATOR [employer]ON[facility] LAB - CHEMISTRY ORDERABLES Performing Organization Address City/State/[facility] Co de Phone Number [address] [id number] [phone] * (ABNORMAL) CBC W AUTO DIFFERENTIAL (03/14/2020 12:23 AM CDT) WBC 20.8(H) 3.5 - 10.5 10? 3 /uL 03/14/2020 12:53 AM [facility] RBC 3.19(L) 4.30 - 5.70 10? 6 /uL 03/14/2020 12:53 AM [facility] Hemoglobin 9.1(L) 13.5 - 17.5 g/dL 03/14/2020 12:53 AM [facility] Hematocrit 26.8(L) 39.0 - 50.0 % 03/14/2020 12:53 AM [facility] MCV 84.0 81.0 - 97.0 fL 03/14/2020 12:53 AM [facility] MCH 28.5 28.0 - 34.0 pg 03/14/2020 12:53 AM [facility] MCHC 34.0 32.0 - 36.0 g/dL 03/14/2020 12:53 AM [facility] Platelet Count 215 150 - 400 10? 3 /uL 03/14/2020 12:53 AM [facility] RDW-SD 52.7(H) 36.0 - 50.0 fL 03/14/2020 12:53 AM [facility] RDW-CV 18.0(H) 11.2 - 14.8 % 03/14/2020 12:53 AM [facility] MPV 12.9(H) 9.3 - 12.8 fL 03/14/2020 12:53 AM [facility] nRBC Absolute 0.19(H) 0 10? 3 /uL 03/14/2020 12:53 AM [facility] nRBC Auto 0.9(H) 0 /100 WBC 03/14/2020 12:53 AM [facility] Blood BLOOD SPECIMEN / Unknown Venipuncture / Unknown 03/14/2020 12:23 AM CDT 03/14/2020 12:42 AM CDT Tiffanie Nguyen TRANSCRIBING OPERATOR [employer] [facility] LAB - HEMATOLOG Y ORDERABLES [address] [id number] [phone] * (ABNORMAL) IGG BLOOD (03/13/2020 1:46 PM CDT) IgG 162(L) 540-1,822 mg/dL 03/13/2020 2:40 PM T [facility] Blood BLOOD SPECIMEN / Unknown 03/13/2020 1:46 PM CDT 03/13/2020 2:16 PM CDT Arnold Cutler DO LAB - CHEMISTRY [place] Performing Organization Address [facility]/ZIP Co de Phone Number [place] [phone], [facility] [phone] * (ABNORMAL) C-REACTIVE PROTEIN (03/13/2020 3:43 AM CDT) C-Reactive Protein 8.0(H) <=0.5 mg/dL 03/13/2020 4:19 AM CDT [facility] Blood BLOOD SPECIMEN / Unknown Venipuncture / Unknown 03/13/2020 3:43 AM CDT 03/13/2020 3:47 AM CDT Joe Dennison MD LAB - CHEMISTRY [place] Performing Organization Address [facility]/ZIP Co de Phone Number [address], [facility] [phone] * PHOSPHORUS BLOOD (03/13/2020 12:13 AM CDT) Phosphorus 3.3 2.3 - 4.7 mg/dL 03/13/2020 12:38 AM CDT [facility] Blood BLOOD SPECIMEN / Unknown Venipuncture / Unknown 03/13/2020 12:13 AM CDT 03/13/2020 12:16 AM CDT Tiffanie Nguyen APRN-SEWING DEMONSTRATOR LAB - CHEMISTRY ORDERABLES [address] [address], [facility] [phone] * MAGNESIUM BLOOD (03/13/2020 12:13 AM CDT) Magnesium 2.0 1.6 - 2.6 mg/dL 03/13/2020 12:38 AM CDT [facility] Blood BLOOD SPECIMEN / Unknown Venipuncture / Unknown 03/13/2020 12:13 AM CDT 03/13/2020 12:16 AM CDT Tiffanie Nguyen TRANSCRIBING OPERATOR [employer]ON[employer] LAB - CHEMISTRY ORDERABLES [address] [address], [facility] [phone] * (ABNORMAL) COMPREHENSIVE METABOLIC PANEL (03/13/2020 12:13 AM CDT) BUN 25 7 - 26 mg/dL 03/13/2020 12:38 AM [facility] Creatinine 0.7 0.6 - 1.2 mg/dL 03/13/2020 12:38 AM [facility] Sodium 142 136 - 145 mmol/L 03/13/2020 12:38 AM [facility] Potassium 3.9 3.5 - 4.5 mmol/L 03/13/2020 12:38 AM [facility] Chloride 105 98 - 107 mmol/L 03/13/2020 12:38 AM [facility] CO2 26 22 - 29 mmol/L 03/13/2020 12:38 AM [facility] Glucose 142(H) 70 - 115 mg/dL 03/13/2020 12:38 AM [facility] Calcium 8.1(L) 8.4 - 10.2 mg/dL 03/13/2020 12:38 AM [facility] Protein Total 5.0(L) 6.0 - 8.3 g/dL 03/13/2020 12:38 AM [facility] Albumin 2.0(L) 3.4 - 5.0 g/dL 03/13/2020 12:38 AM [facility] Bilirubin Total 0.3 0.2 - 1.2 mg/dL 03/13/2020 12:38 AM [facility] Alkaline Phosphatase 125 40 - 150 Units/L 03/13/2020 12:38 AM [facility] ALT 58(H) 0 - 55 Units/L 03/13/2020 12:38 AM [facility] AST 23 5 - 34 Units/L 03/13/2020 12:38 AM [facility] Anion Gap 15 8 - 18 03/13/2020 12:38 AM [facility] BUN/Creatinine Ratio 36(H) 7 - 23 03/13/2020 12:38 AM [facility] Osmolality Calculated 301(H) 270 - 300 mOsm/kg 03/13/2020 12:38 AM [facility] Albumin/Globulin Ratio 0.7(L) 1.1 - 2.3 03/13/2020 12:38 AM [facility] eGFR >60 >60 mL/min/1.7 3 m2 03/13/2020 12:38 AM [facility] Blood BLOOD SPECIMEN / Unknown Venipuncture / Unknown 03/13/2020 12:13 AM CDT 03/13/2020 12:16 AM T Tiffanie Nguyen TRANSCRIBING OPERATOR HEAD-SEWING DEMONSTRATOR LAB - CHEMISTRY ORDERABLES [address] [address], [facility] [phone] * (ABNORMAL) CBC W AUTO DIFFERENTIAL (03/13/2020 12:13 AM T) WBC 21.7(H) 3.5 - 10.5 10? 3 /uL 03/13/2020 12:33 AM [facility] Comment:All CBC parameters h ave been checked. RBC 3.36(L) 4.30 - 5.70 10? 6 /uL 03/13/2020 12:33 AM [facility] Hemoglobin 9.7(L) 13.5 - 17.5 g/dL 03/13/2020 12:33 AM [facility] Hematocrit 28.1(L) 39.0 - 50.0 % 03/13/2020 12:33 AM [facility] MCV 83.6 81.0 - 97.0 fL 03/13/2020 12:33 AM [facility] MCH 28.9 28.0 - 34.0 pg 03/13/2020 12:33 AM [facility] MCHC 34.5 32.0 - 36.0 g/dL 03/13/2020 12:33 AM [facility] Platelet Count 221 150 - 400 10? 3 /uL 03/13/2020 12:33 AM [facility] RDW-SD 51.4(H) 36.0 - 50.0 fL 03/13/2020 12:33 AM [facility] RDW-CV 17.4(H) 11.2 - 14.8 % 03/13/2020 12:33 AM [facility] MPV 12.5 9.3 - 12.8 fL 03/13/2020 12:33 AM [facility] nRBC Absolute 0.13(H) 0 10? 3 /uL 03/13/2020 12:33 AM [facility] nRBC Auto 0.6(H) 0 /100 WBC 03/13/2020 12:33 AM [facility] Neutrophils % 92.4(H) 35.0 - 70.0 % 03/13/2020 12:33 AM [facility] Lymphocytes % 2.7(L) 19.7 - 55.1 % 03/13/2020 12:33 AM [facility] Monocytes % 3.1 3.0 - 15.0 % 03/13/2020 12:33 AM [facility] Eosinophils % 0.0 0.0 - 6.0 % 03/13/2020 12:33 AM [facility] Basophil % 0.1 0.0 - 1.5 % 03/13/2020 12:33 AM [facility] Neutrophils Absolute 20.1(H) 1.6 - 7.0 10? 3 /uL 03/13/2020 12:33 AM [facility] Lymphocyte Absolute 0.6(L) 0.8 - 2.9 10? 3 /uL 03/13/2020 12:33 AM [facility] Monocytes Absolute 0.67(H) 0.14 - 0.66 10? 3 /uL 03/13/2020 12:33 AM [facility] Eosinophils Absolute 0.00 0.00 - 0.45 10? 3 /uL 03/13/2020 12:33 AM [facility] Basophils Absolute 0.02 0.00 - 0.06 10? 3 /uL 03/13/2020 12:33 AM [facility] Immature Granulocytes % 1.7(H) 0.0 - 1.0 % 03/13/2020 12:33 AM [facility] Blood BLOOD SPECIMEN / Unknown Venipuncture / Unknown 03/13/2020 12:13 AM CDT 03/13/2020 12:16 AM CDT Tiffanie MIMS LAB - HEMATOLOG Y ORDERABLES Performing Organization Address [facility]/ZIP Co de Phone Number [address] [address], [facility] [phone] * (ABNORMAL) C-REACTIVE PROTEIN (03/12/2020 5:22 AM CDT) Pathologist [facility] [place] C-Reactive Protein 17.3(H) <=0.5 mg/dL 03/12/2020 5:54 AM CDT [facility] Blood BLOOD SPECIMEN / Unknown Venipuncture / Unknown 03/12/2020 5:22 AM CDT 03/12/2020 5:34 AM CDT Joe Dennison MD LAB - CHEMISTRY [place] Performing Organization Address [facility]/ZIP Co de Phone Number [address] [address], [facility] [phone] * (ABNORMAL) DIFFERENTIAL MANUAL (03/12/2020 12:36 AM CDT) [facility] WBC (corrected for NRBC) 14.3 10? 3 /uL 03/12/2020 2:49 AM CDT [facility] Total Cell Count 100 03/12/20 20 2:49 AM T [facility] Neutrophils Absolute Manual 13.73(H) 1.60 - 7.00 10? 3 /uL 03/12/2020 2:49 AM T [facility] Comment:(BANDS+SEGS) x WBC = NEUT # (ANC) Lymphocyte Absolute Manual 0.43(L) 0.80 - 2.90 10? 3 /uL 03/12/2020 2:49 AM T [facility] Monocytes Absolute Manual 0.14 0.14 - 0.66 10? 3 /uL 03/12/2020 2:49 AM CDT [facility] Band % Manual 5 0 - 10 % 03/12/2020 2:49 AM CDT [facility] Neutrophil % Manual 91(H) 30 - 60 % 03/12/2020 2:49 AM T [facility] Lymphocyte % Manual 3(L) 20 - 45 % 03/12/2020 2:49 AM CDT [facility] Monocytes % Manual 1(L) 2 - 10 % 03/12/2020 2:49 AM CDT [facility] nRBC Manual 2(H) 0 /100 WBC 03/12/2020 2:49 AM T [facility] Platelet Estimate Adequate Adequate 03/12/2020 2:49 AM CDT [facility] Polychromasia Occasional( A) None 03/12/2020 2:49 AM CDT [facility] [place] Bodies 1+(A) None 03/12/2020 2:49 AM T [facility] Target Cells 1+(A) None 03/12/2020 2:49 AM CDT [facility] Blood BLOOD SPECIMEN / Unknown Venipuncture / Unknown 03/12/2020 12:36 AM CDT 03/12/2020 12:51 AM CDT Tiffanie Nguyen TRANSCRIBING OPERATOR HEAD-SEWING DEMONSTRATOR LAB - HEMATOLOG Y ORDERABLES [address] [phone] * (ABNORMAL) LDH BLOOD (03/12/2020 12:36 AM CDT) [facility] LDH Total 598(H) 125 - 243 Units/L 03/12/2020 1:16 AM CDT [facility] Blood BLOOD SPECIMEN / Unknown Venipuncture / Unknown 03/12/2020 12:36 AM CDT 03/12/2020 12:51 AM CDT Kenneth Martins MD LAB - CHEMISTRY [place] [phone] [phone] * (ABNORMAL) FERRITIN (03/12/2020 12:36 AM CDT) Pathologist [facility] [place] Ferritin 2,350(H) 22 - 275 ng/mL 03/12/2020 2:02 AM CDT [facility] Comment:Result obtained by jason hernandez. Blood BLOOD SPECIMEN / Unknown Venipuncture / Unknown 03/12/2020 12:36 AM CDT 03/12/2020 12:51 AM CDT Kenneth Martins MD LAB - CHEMISTRY ORDE HCELA Performing Organization Address [facility]/ZIP Co de Phone Number [address] [phone] * (ABNORMAL) ERYTHROCYTE SEDIMENTATION RATE (03/12/2020 12:36 AM CDT) [facility] Erythrocyte Sedimentation Rate Westergren >130(H) 0 - 15 MM/HR 03/12/2020 1:19 AM CDT [facility] Blood BLOOD SPECIMEN / Unknown Venipuncture / Unknown 03/12/2020 12:36 AM CDT 03/12/2020 12:51 AM CDT Kenneth Martins MD LAB - HEMATOLOGY ORD ERABLES Performing Organization Address [facility] Co de Phone Number [address] [phone] * (ABNORMAL) D-DIMER (03/12/2020 12:36 AM CDT) [facility] D-Dimer Quantitative 1.80(H) <=0.50 mcg/mL FEU 03/12/2020 1:14 AM CDT [facility] Comment: In the absence of clinical [...] BLOOD SPECIMEN / Unknown Venipuncture / Unknown 03/12/2020 12:36 AM CDT 03/12/2020 12:51 AM CDT Kenneth Martins MD LAB - COAGULATION OR DERABLES Performing Organization Address City/[facility]/ZIP Co de Phone Number [place] [address], [facility] [phone] * PHOSPHORUS BLOOD (03/12/2020 12:36 AM CDT) Phosphorus 3.6 2.3 - 4.7 mg/dL 03/12/2020 1:16 AM CDT [facility] Blood BLOOD SPECIMEN / Unknown Venipuncture / Unknown 03/12/2020 12:36 AM CDT 03/12/2020 12:51 AM CDT Tiffanie Nguyen APRN-SEWING DEMONSTRATOR LAB - CHEMISTRY ORDERABLES [address] [address], [facility] [phone] * MAGNESIUM BLOOD (03/12/2020 12:36 AM CDT) Magnesium 2.3 1.6 - 2.6 mg/dL 03/12/2020 1:16 AM CDT [facility] Blood BLOOD SPECIMEN / Unknown Venipuncture / Unknown 03/12/2020 12:36 AM CDT 03/12/2020 12:51 AM CDT Tiffanie Nguyen TRANSCRIBING OPERATOR HEAD-SEWING DEMONSTRATOR LAB - CHEMISTRY ORDERABLES [facility] [address] [place] [address], [facility] [phone] * (ABNORMAL) COMPREHENSIVE METABOLIC PANEL (03/12/2020 12:36 AM CDT) BUN 25 7 - 26 mg/dL 03/12/2020 1:16 AM [facility] Creatinine 0.8 0.6 - 1.2 mg/dL 03/12/2020 1:16 AM [facility] Sodium 138 136 - 145 mmol/L 03/12/2020 1:16 AM [facility] Potassium 4.4 3.5 - 4.5 mmol/L 03/12/2020 1:16 AM [facility] Chloride 102 98 - 107 mmol/L 03/12/2020 1:16 AM [facility] CO2 26 22 - 29 mmol/L 03/12/2020 1:16 AM [facility] Glucose 119(H) 70 - 115 mg/dL 03/12/2020 1:16 AM [facility] Calcium 8.9 8.4 - 10.2 mg/dL 03/12/2020 1:16 AM [facility] Protein Total 5.8(L) 6.0 - 8.3 g/dL 03/12/2020 1:16 AM [facility] Albumin 2.1(L) 3.4 - 5.0 g/dL 03/12/2020 1:16 AM [facility] Bilirubin Total 0.5 0.2 - 1.2 mg/dL 03/12/2020 1:16 AM [facility] Alkaline Phosphatase 147 40 - 150 Units/L 03/12/2020 1:16 AM [facility] ALT 68(H) 0 - 55 Units/L 03/12/2020 1:16 AM [facility] AST 22 5 - 34 Units/L 03/12/2020 1:16 AM [facility] Anion Gap 14 8 - 18 03/12/2020 1:16 AM [facility] BUN/Creatinine Ratio 31(H) 7 - 23 03/12/2020 1:16 AM [facility] Osmolality Calculated 292 270 - 300 mOsm/kg 03/12/2020 1:16 AM [facility] Albumin/Globulin Ratio 0.6(L) 1.1 - 2.3 03/12/2020 1:16 AM [facility] eGFR >60 >60 mL/min/1.7 3 m2 03/12/2020 1:16 AM [facility] Blood BLOOD SPECIMEN / Unknown Venipuncture / Unknown 03/12/2020 12:36 AM CDT 03/12/2020 12:51 AM CDT Tiffanie Nguyen TRANSCRIBING OPERATOR HEAD-SEWING DEMONSTRATOR LAB - CHEMISTRY ORDERABLES [address] [address], [facility] [phone] * (ABNORMAL) CBC W AUTO DIFFERENTIAL (03/12/2020 12:36 AM T) WBC 14.3(H) 3.5 - 10.5 10? 3 /uL 03/12/2020 12:58 AM [facility] RBC 3.71(L) 4.30 - 5.70 10? 6 /uL 03/12/2020 12:58 AM [facility] Hemoglobin 10.5(L) 13.5 - 17.5 g/dL 03/12/2020 12:58 AM [facility] Hematocrit 30.7(L) 39.0 - 50.0 % 03/12/2020 12:58 AM [facility] MCV 82.7 81.0 - 97.0 fL 03/12/2020 12:58 AM [facility] MCH 28.3 28.0 - 34.0 pg 03/12/2020 12:58 AM [facility] MCHC 34.2 32.0 - 36.0 g/dL 03/12/2020 12:58 AM [facility] Platelet Count 252 150 - 400 10? 3 /uL 03/12/2020 12:58 AM [facility] RDW-SD 49.8 36.0 - 50.0 fL 03/12/2020 12:58 AM T [facility] RDW-CV 17.2(H) 11.2 - 14.8 % 03/12/2020 12:58 AM [facility] MPV 12.5 9.3 - 12.8 fL 03/12/2020 12:58 AM [facility] nRBC Absolute 0.06(H) 0 10? 3 /uL 03/12/2020 12:58 AM [facility] nRBC Auto 0.4(H) 0 /100 WBC 03/12/2020 12:58 AM [facility] Blood BLOOD SPECIMEN / Unknown Venipuncture / Unknown 03/12/2020 12:36 AM CDT 03/12/2020 12:51 AM CDT Lara Patrick TRANSCRIBING OPERATOR HEAD-SEWING DEMONSTRATOR LAB - HEMATOLOG Y ORDERABLES Performing Organization Address [facility] Co de Phone Number [address] [phone] [phone] * (ABNORMAL) DIFFERENTIAL MANUAL (03/11/2020 12:33 AM CDT) WBC (corrected for NRBC) 15.4 10? 3 /uL 03/11/2020 1:16 AM [facility] Total Cell Count 100 03/11/20 20 1:16 AM [facility] Neutrophils Absolute Manual 14.94(H) 1.60 - 7.00 10? 3 /uL 03/11/2020 1:16 AM [facility] Comment:(BANDS+SEGS) x WBC = NEUT # (ANC) Lymphocyte Absolute Manual 0.31(L) 0.80 - 2.90 10? 3 /uL 03/11/2020 1:16 AM [facility] Monocytes Absolute Manual 0.15 0.14 - 0.66 10? 3 /uL 03/11/2020 1:16 AM [facility] Band % Manual 4 0 - 10 % 03/11/2020 1:16 AM [facility] Neutrophil % Manual 93(H) 30 - 60 % 03/11/2020 1:16 AM CDT [facility] Lymphocyte % Manual 2(L) 20 - 45 % 03/11/2020 1:16 AM T [facility] Monocytes % Manual 1(L) 2 - 10 % 03/11/2020 1:16 AM T [facility] Platelet Estimate Adequate Adequate 03/11/2020 1:16 AM T [facility] Anisocytosis 1+(A) None 03/11/2020 1:16 AM T [facility] Poikilocytes Occasional( A) None 03/11/2020 1:16 AM T [facility] Microcytes Occasional( A) None 03/11/2020 1:16 AM T [facility] Polychromasia Occasional( A) None 03/11/2020 1:16 AM T [facility] Target Cells 1+(A) None 03/11/2020 1:16 AM T [facility] Blood BLOOD SPECIMEN / Unknown Venipuncture / Unknown 03/11/2020 12:33 AM CDT 03/11/2020 12:37 AM CDT Tiffanie Nguyen [facility] LAB - HEMATOLOG Y ORDERABLES [place] [phone] [phone] * PHOSPHORUS BLOOD (03/11/2020 12:33 AM CDT) Phosphorus 3.6 2.3 - 4.7 mg/dL 03/11/2020 1:04 AM CDT [facility] Blood BLOOD SPECIMEN / Unknown Venipuncture / Unknown 03/11/2020 12:33 AM CDT 03/11/2020 12:37 AM CDT Tiffanie Nguyen [facility] LAB - CHEMISTRY ORDERABLES [address] [address], [place] [phone] * MAGNESIUM BLOOD (03/11/2020 12:33 AM CDT) Magnesium 1.9 1.6 - 2.6 mg/dL 03/11/2020 1:04 AM [facility] Blood BLOOD SPECIMEN / Unknown Venipuncture / Unknown 03/11/2020 12:33 AM CDT 03/11/2020 12:37 AM CDT Tiffanie Nguyen TRANSCRIBING OPERATOR HEAD-SEWING DEMONSTRATOR LAB - CHEMISTRY ORDERABLES [address] [address] [phone] * (ABNORMAL) COMPREHENSIVE METABOLIC PANEL (03/11/2020 12:33 AM CDT) BUN 20 7 - 26 mg/dL 03/11/2020 1:04 AM [facility] Creatinine 0.8 0.6 - 1.2 mg/dL 03/11/2020 1:04 AM [facility] Sodium 138 136 - 145 mmol/L 03/11/2020 1:04 AM [facility] Potassium 3.8 3.5 - 4.5 mmol/L 03/11/2020 1:04 AM [facility] Chloride 101 98 - 107 mmol/L 03/11/2020 1:04 AM [facility] CO2 25 22 - 29 mmol/L 03/11/2020 1:04 AM [facility] Glucose 107 70 - 115 mg/dL 03/11/2020 1:04 AM [facility] Calcium 8.6 8.4 - 10.2 mg/dL 03/11/2020 1:04 AM [facility] Protein Total 5.4(L) 6.0 - 8.3 g/dL 03/11/2020 1:04 AM [facility] Albumin 1.9(L) 3.4 - 5.0 g/dL 03/11/2020 1:04 AM [facility] Bilirubin Total 0.5 0.2 - 1.2 mg/dL 03/11/2020 1:04 AM [facility] Alkaline Phosphatase 125 40 - 150 Units/L 03/11/2020 1:04 AM [facility] ALT 79(H) 0 - 55 Units/L 03/11/2020 1:04 AM [facility] AST 21 5 - 34 Units/L 03/11/2020 1:04 AM [facility] Anion Gap 16 8 - 18 03/11/2020 1:04 AM [facility] BUN/Creatinine Ratio 25(H) 7 - 23 03/11/2020 1:04 AM [facility] Osmolality Calculated 289 270 - 300 mOsm/kg 03/11/2020 1:04 AM [facility] Albumin/Globulin Ratio 0.5(L) 1.1 - 2.3 03/11/2020 1:04 AM [facility] eGFR >60 >60 mL/min/1.7 3 m2 03/11/2020 1:04 AM [facility] Blood BLOOD SPECIMEN / Unknown Venipuncture / Unknown 03/11/2020 12:33 AM CDT 03/11/2020 12:37 AM CDT Tiffanie Nguyen TRANSCRIBING OPERATOR HEAD-SEWING DEMONSTRATOR LAB - CHEMISTRY ORDERABLES Performing Organization Address City/State/[facility] Co de Phone Number [address] [address] [phone] * (ABNORMAL) CBC W AUTO DIFFERENTIAL (03/11/2020 12:33 AM CDT) WBC 15.4(H) 3.5 - 10.5 10? 3 /uL 03/11/2020 12:44 AM [facility] RBC 3.24(L) 4.30 - 5.70 10? 6 /uL 03/11/2020 12:44 AM [facility] Hemoglobin 9.2(L) 13.5 - 17.5 g/dL 03/11/2020 12:44 AM [facility] Hematocrit 26.4(L) 39.0 - 50.0 % 03/11/2020 12:44 AM [facility] MCV 81.5 81.0 - 97.0 fL 03/11/2020 12:44 AM [facility] MCH 28.4 28.0 - 34.0 pg 03/11/2020 12:44 AM [facility] MCHC 34.8 32.0 - 36.0 g/dL 03/11/2020 12:44 AM CDT [facility] Platelet Count 218 150 - 400 10? 3 /uL 03/11/2020 12:44 AM CDT [facility] RDW-SD 48.5 36.0 - 50.0 fL 03/11/2020 12:44 AM CDT [facility] RDW-CV 16.7(H) 11.2 - 14.8 % 03/11/2020 12:44 AM CDT [facility] MPV 12.6 9.3 - 12.8 fL 03/11/2020 12:44 AM CDT [facility] nRBC Absolute 0.05(H) 0 10? 3 /uL 03/11/2020 12:44 AM CDT [facility] nRBC Auto 0.3(H) 0 /100 WBC 03/11/2020 12:44 AM CDT [facility] Blood BLOOD SPECIMEN / Unknown Venipuncture / Unknown 03/11/2020 12:33 AM CDT 03/11/2020 12:37 AM CDT Tiffanie Nguyen TRANSCRIBING OPERATOR HEAD-SEWING DEMONSTRATOR LAB - HEMATOLOG Y ORDERABLES Performing Organization Address [facility]/State/ZIP Co de Phone Number [address] [address], [facility] [phone] * [facility]SFUSE [facility] COVID-[facility]ASMA [facility] (03/10/2020 6:22 PM CDT) Kalpesh Robison MD NURSING - BLOOD PROD TRANSFUSION * [facility] COVID-[facility]ASMA [facility], 1 Units (03/10/2020 6:22 PM CDT) Kalpesh Robison MD NURSING - BLOOD PROD TRANSFUSION * BLOOD TYPE ABO+ RH PANEL (03/10/2020 1:25 PM CDT) ABO Rh A POS 03/10/2020 2:1 3 PM CDT [facility] Blood BLOOD SPECIMEN / Unknown Venipuncture / Unknown 03/10/2020 1:25 PM CDT 03/10/2020 1:36 PM CDT Kalpesh Robison MD LAB - BLOOD BANK ORD ERABLES Performing Organization Address City/[facility]/ZIP Co de Phone Number [facility] [address] [place] [phone] * 1 Units (03/10/2020 1:00 PM CDT) Unit Description COVID 19 CP [facility] Unit ABO A [facility] Unit Rh POS [facility] Product [facility] [id number] [facility] Unit Donor # [id number] [facility] Unit Status released [facility] D [facility] Product Code [id number] [facility] Blood Type Barcode 6200 [facility] Expiration Date S BLOOD BANK LAB Unit Description Thawed CCP 5D [facility] Unit ABO A [facility] Unit Rh POS [facility] Product Number [id number] [facility] Unit Donor # [id number] [facility] Unit Status transfused [facility] Product Code [id number] [facility] Blood Type Barcode 6200 [facility] Expiration Date [id number] S BLOOD BANK LAB Blood Bank BLOOD SPECIMEN / Unknown 03/10/2020 1:00 PM CDT Kalpesh Robison MD LAB - BLOOD BANK ORD ERABLES Performing Organization Address [facility]/ZIP Co de Phone Number [facility] [address] [place] [phone] * XR CHEST 1VW PORTABLE (03/10/2020 12:25 PM CDT) Anatomical Region Laterality Modality Chest Radiographic Chayito ging 03/10/2020 1:39 PM CDT Impressions 03/10/2020 1:41 PM CDT Findings/Impression: Comparison to 03/07/2020 and 03/06/2020. Endotracheal tube was removed. There is multifocal consolidation in both lungs, concerning for multifocal pneumonia, improved from prior. Interstitial opacities could also represent underlying mild pulmonary edema, improved from prior. There is no pneumothorax. There is no pleural effusion. The cardiomediastinal silhouette is normal. This report was electronically signed by BOGDAN RUBIO ??on 03/10/2020 1:41 PM . Narrative 03/10/2020 1:41 PM CDT Examination: XR CHEST 1VW PORTABLE History: R50.81: Fever in other diseases Procedure Note Bogdan Rubio MD - 03/10/2020 Examination: XR CHEST 1VW PORTABLE History: R50.81: Fever in other diseases Findings/Impression: Comparison to 03/07/2020 and 03/06/2020. Endotracheal tube was removed. There is multifocal consolidation in both lungs, concerning formultifocal pneumonia, improved from prior. Interstitial opacities could also represent underlying mild pulmonary edema, improved from prior. There is no pneumothorax. There is no pleural effusion. The cardiomediastinal silhouette is normal. This report was electronically signed by BOGDAN RUBIO on 03/10/2020 1:41 PM. Anali Avery MD DIAGNOSTIC IMAGIN G ORDERABLES * (ABNORMAL) LDH BLOOD (03/10/2020 12:59 AM CDT) LDH Total 753(H) 125 - 243 Units/L 03/10/2020 1:21 AM CDT [facility] Blood BLOOD SPECIMEN / Unknown Venipuncture / Unknown 03/10/2020 12:59 AM CDT 03/10/2020 1:01 AM CDT Kenneth Martins MD LAB - CHEMISTRY [place] [facility] Organization Address City/State/ZIP Co de Phone Number [facility] [address] [address] [phone] * (ABNORMAL) FERRITIN (03/10/2020 12:59 AM CDT) Ferritin 4,024(H) 22 - 275 ng/mL 03/10/2020 2:38 AM CDT [facility] Comment:Result obtained by jason hernandez. Blood BLOOD SPECIMEN / Unknown Venipuncture / Unknown 03/10/2020 12:59 AM CDT 03/10/2020 1:01 AM CDT Kenneth Martins MD LAB - CHEMISTRY [place] [address] [address], [place] [phone] * (ABNORMAL) ERYTHROCYTE SEDIMENTATION RATE (03/10/2020 12:59 AM CDT) [facility] Erythrocyte Sedimentation Rate Westergren >130(H) 0 - 15 MM/HR 03/10/2020 1:21 AM CDT [facility] Blood BLOOD SPECIMEN / Unknown Venipuncture / Unknown 03/10/2020 12:59 AM CDT 03/10/2020 1:01 AM CDT Kenneth Martins MD LAB - HEMATOLOGY ORD LEONIE Performing Organization Address [facility]/ZIP Co de Phone Number [address] [address], [facility] [phone] * (ABNORMAL) D-DIMER (03/10/2020 12:59 AM CDT) [facility] D-Dimer Quantitative 3.56(H) <=0.50 mcg/mL FEU 03/10/2020 1:28 AM CDT [facility] Comment: In the absence of clinical [...] SPECIMEN / Unknown Venipuncture / Unknown 03/10/2020 12:59 AM CDT 03/10/2020 1:01 AM CDT Kenneth Martins MD LAB - COAGULATION OR DERABLES Performing Organization Address [facility]/ZIP Co de Phone Number [address], [facility] [phone] * (ABNORMAL) C-REACTIVE PROTEIN (03/10/2020 12:59 AM CDT) C-Reactive Protein 30.6(H) <=0.5 mg/dL 03/10/2020 1:46 AM CDT [facility] Blood BLOOD SPECIMEN / Unknown Venipuncture / Unknown 03/10/2020 12:59 AM CDT 03/10/2020 1:01 AM CDT Kenneth Martins MD LAB - CHEMISTRY ORDE RABLES Performing Organization Address [facility] Co de Phone Number [address] [address], [facility] [phone] * PHOSPHORUS BLOOD (03/10/2020 12:59 AM CDT) Phosphorus 2.9 2.3 - 4.7 mg/dL 03/10/2020 1:21 AM CDT [facility] Blood BLOOD SPECIMEN / Unknown Venipuncture / Unknown 03/10/2020 12:59 AM CDT 03/10/2020 1:01 AM CDT Tiffanie Nguyen APRN-SEWING DEMONSTRATOR LAB - CHEMISTRY ORDERABLES Performing Organization Address [facility]/ZIP Co de Phone Number [address] [address], [facility] [phone] * MAGNESIUM BLOOD (03/10/2020 12:59 AM CDT) Magnesium 2.0 1.6 - 2.6 mg/dL 03/10/2020 1:21 AM [facility] Blood BLOOD SPECIMEN / Unknown Venipuncture / Unknown 03/10/2020 12:59 AM CDT 03/10/2020 1:01 AM CDT Tiffanie Nguyen TRANSCRIBING OPERATOR HEAD-SEWING DEMONSTRATOR LAB - CHEMISTRY ORDERABLES [address] [address], [facility] [phone] * (ABNORMAL) COMPREHENSIVE METABOLIC PANEL (03/10/2020 12:59 AM CDT) BUN 17 7 - 26 mg/dL 03/10/2020 1:21 AM [facility] Creatinine 0.7 0.6 - 1.2 mg/dL 03/10/2020 1:21 AM [facility] Sodium 137 136 - 145 mmol/L 03/10/2020 1:21 AM [facility] Potassium 4.1 3.5 - 4.5 mmol/L 03/10/2020 1:21 AM [facility] Chloride 103 98 - 107 mmol/L 03/10/2020 1:21 AM [facility] CO2 22 22 - 29 mmol/L 03/10/2020 1:21 AM [facility] Glucose 96 70 - 115 mg/dL 03/10/2020 1:21 AM [facility] Calcium 7.9(L) 8.4 - 10.2 mg/dL 03/10/2020 1:21 AM [facility] Protein Total 5.1(L) 6.0 - 8.3 g/dL 03/10/2020 1:21 AM [facility] Albumin 1.7(L) 3.4 - 5.0 g/dL 03/10/2020 1:21 AM [facility] Bilirubin Total 0.6 0.2 - 1.2 mg/dL 03/10/2020 1:21 AM [facility] Alkaline Phosphatase 152(H) 40 - 150 Units/L 03/10/2020 1:21 AM [facility] ALT 120(H) 0 - 55 Units/L 03/10/2020 1:21 AM [facility] AST 48(H) 5 - 34 Units/L 03/10/2020 1:21 AM [facility] Anion Gap 16 8 - 18 03/10/2020 1:21 AM [facility] BUN/Creatinine Ratio 24(H) 7 - 23 03/10/2020 1:21 AM [facility] Osmolality Calculated 285 270 - 300 mOsm/kg 03/10/2020 1:21 AM [facility] Albumin/Globulin Ratio 0.5(L) 1.1 - 2.3 03/10/2020 1:21 AM [facility] eGFR >60 >60 mL/min/1.7 3 m2 03/10/2020 1:21 AM [facility] Blood BLOOD SPECIMEN / Unknown Venipuncture / Unknown 03/10/2020 12:59 AM CDT 03/10/2020 1:01 AM CDT Tiffanie Nguyen TRANSCRIBING OPERATOR [employer] DEMONSTRATOR LAB - CHEMISTRY ORDERABLES [address] [address] [phone] * (ABNORMAL) CBC W AUTO DIFFERENTIAL (03/10/2020 12:59 AM CDT) WBC 17.7(H) 3.5 - 10.5 10? 3 /uL 03/10/2020 1:07 AM [facility] RBC 3.39(L) 4.30 - 5.70 10? 6 /uL 03/10/2020 1:07 AM [facility] Hemoglobin 9.7(L) 13.5 - 17.5 g/dL 03/10/2020 1:07 AM [facility] Hematocrit 28.1(L) 39.0 - 50.0 % 03/10/2020 1:07 AM [facility] MCV 82.9 81.0 - 97.0 fL 03/10/2020 1:07 AM [facility] MCH 28.6 28.0 - 34.0 pg 03/10/2020 1:07 AM [facility] MCHC 34.5 32.0 - 36.0 g/dL 03/10/2020 1:07 AM [facility] Platelet Count 231 150 - 400 10? 3 /uL 03/10/2020 1:07 AM [facility] RDW-SD 49.1 36.0 - 50.0 fL 03/10/2020 1:07 AM [facility] RDW-CV 16.7(H) 11.2 - 14.8 % 03/10/2020 1:07 AM [facility] MPV 11.4 9.3 - 12.8 fL 03/10/2020 1:07 AM [facility] nRBC Absolute 0.09(H) 0 10? 3 /uL 03/10/2020 1:07 AM [facility] nRBC Auto 0.5(H) 0 /100 WBC 03/10/2020 1:07 AM [facility] Neutrophils % 92.8(H) 35.0 - 70.0 % 03/10/2020 1:07 AM [facility] Lymphocytes % 4.2(L) 19.7 - 55.1 % 03/10/2020 1:07 AM [facility] Monocytes % 2.2(L) 3.0 - 15.0 % 03/10/2020 1:07 AM [facility] Eosinophils % 0.0 0.0 - 6.0 % 03/10/2020 1:07 AM [facility] Basophil % 0.1 0.0 - 1.5 % 03/10/2020 1:07 AM [facility] Neutrophils Absolute 16.4(H) 1.6 - 7.0 10? 3 /uL 03/10/2020 1:07 AM [facility] Lymphocyte Absolute 0.7(L) 0.8 - 2.9 10? 3 /uL 03/10/2020 1:07 AM [facility] Monocytes Absolute 0.38 0.14 - 0.66 10? 3 /uL 03/10/2020 1:07 AM [facility] Eosinophils Absolute 0.00 0.00 - 0.45 10? 3 /uL 03/10/2020 1:07 AM CDT [facility] Basophils Absolute 0.02 0.00 - 0.06 10? 3 /uL 03/10/2020 1:07 AM CDT [facility] Immature Granulocytes % 0.7 0.0 - 1.0 % 03/10/2020 1:07 AM CDT [facility] Blood BLOOD SPECIMEN / Unknown Venipuncture / Unknown 03/10/2020 12:59 AM CDT 03/10/2020 1:01 AM CDT Tiffanie Nguyen TRANSCRIBING OPERATOR [employer]SE[employer]ING DEMONSTRATOR LAB - HEMATOLOG Y ORDERABLES Performing Organization Address City/[facility]/ZIP Co de Phone Number [address] [address], [facility] [phone] * CULTURE BLOOD (03/09/2020 8:06 PM CDT) Culture No growth day 5 SPENCER 03/15/2020 12:01 AM CDT [facility] MICROBIOLOGY Blood PERIPHERAL BLOOD / Unknown Venipuncture / Unknown 03/09/2020 8:06 PM CDT 03/09/2020 8:14 PM CDT Anali Avery MD LAB - MICROBIOLOG Y ORDERABLES Performing Organization Address City/[facility]/ZIP Co de Phone Number [facility] MI[facility] [address] [place] [address], [facility] [phone] * CULTURE BLOOD (03/09/2020 7:52 PM CDT) Culture No growth day 5 SPENCER 03/15/2020 12:01 AM CDT [facility] MICROBIOLOGY Blood PERIPHERAL BLOOD / Unknown Venipuncture / Unknown 03/09/2020 7:52 PM CDT 03/09/2020 8:14 PM CDT Anali Avery MD LAB - MICROBIOLOG Y ORDERABLES Performing Organization Address City/[facility]/ZIP Co de Phone Number [facility] MICRO[facility] [address] [place] [address], [facility] [phone] * MAGNESIUM BLOOD (03/09/2020 5:54 AM CDT) Magnesium 2.6 1.6 - 2.6 mg/dL 03/09/2020 6:50 AM [facility] Blood BLOOD SPECIMEN / Unknown Venipuncture / Unknown 03/09/2020 5:54 AM CDT 03/09/2020 5:58 AM CDT Kenneth Martins MD LAB - CHEMISTRY [facility] [facility] Organization Address City/State/ZIP Co de Phone Number [address] [address], [facility] [phone] * (ABNORMAL) COMPREHENSIVE METABOLIC PANEL (03/09/2020 5:54 AM CDT) Pathologist [facility] [place] BUN 19 7 - 26 mg/dL 03/09/2020 6:29 AM [facility] Creatinine 1.0 0.6 - 1.2 mg/dL 03/09/2020 6:29 AM [facility] Sodium 140 136 - 145 mmol/L 03/09/2020 6:29 AM [facility] Potassium 3.5 3.5 - 4.5 mmol/L 03/09/2020 6:29 AM [facility] Chloride 103 98 - 107 mmol/L 03/09/2020 6:29 AM [facility] CO2 27 22 - 29 mmol/L 03/09/2020 6:29 AM [facility] Glucose 76 70 - 115 mg/dL 03/09/2020 6:29 AM [facility] Calcium 8.0(L) 8.4 - 10.2 mg/dL 03/09/2020 6:29 AM [facility] Protein Total 5.3(L) 6.0 - 8.3 g/dL 03/09/2020 6:29 AM [facility] Albumin 1.8(L) 3.4 - 5.0 g/dL 03/09/2020 6:29 AM [facility] Bilirubin Total 0.9 0.2 - 1.2 mg/dL 03/09/2020 6:29 AM [facility] Alkaline Phosphatase 164(H) 40 - 150 Units/L 03/09/2020 6:29 AM [facility] ALT 165(H) 0 - 55 Units/L 03/09/2020 6:29 AM [facility] AST 139(H) 5 - 34 Units/L 03/09/2020 6:29 AM [facility] Anion Gap 14 8 - 18 03/09/2020 6:29 AM [facility] BUN/Creatinine Ratio 19 7 - 23 03/09/2020 6:29 AM [facility] Osmolality Calculated 291 270 - 300 mOsm/kg 03/09/2020 6:29 AM [facility] Albumin/Globulin Ratio 0.5(L) 1.1 - 2.3 03/09/2020 6:29 AM [facility] eGFR >60 >60 mL/min/1.7 3 m2 03/09/2020 6:29 AM [facility] Blood BLOOD SPECIMEN / Unknown Venipuncture / Unknown 03/09/2020 5:54 AM CDT 03/09/2020 5:58 AM CDT Tiffanie Nguyen TRANSCRIBING OPERATOR [facility] LAB - CHEMISTRY ORDERABLES [address], [facility] [phone] * (ABNORMAL) MAGNESIUM BLOOD (03/09/2020 4:10 AM CDT) Magnesium 1.3(L) 1.6 - 2.6 mg/dL 03/09/2020 5:26 AM T [facility] Blood BLOOD SPECIMEN / Unknown Venipuncture / Unknown 03/09/2020 4:10 AM CDT 03/09/2020 4:17 AM CDT Tiffanie Nguyen TRANSCRIBING OPERATOR [facility] LAB - CHEMISTRY ORDERABLES [address] [address], [facility] [phone] * PHOSPHORUS BLOOD (03/09/2020 12:45 AM CDT) Phosphorus 2.4 2.3 - 4.7 mg/dL 03/09/2020 1:11 AM [facility] Blood BLOOD SPECIMEN / Unknown Venipuncture / Unknown 03/09/2020 12:45 AM CDT 03/09/2020 12:49 AM CDT Tiffanie Nguyen TRANSCRIBING OPERATOR [employer] DEMONSTRATOR LAB - CHEMISTRY ORDERABLES Performing Organization Address City/State[facility] Co de Phone Number [address] [address] [phone] * (ABNORMAL) CBC W AUTO DIFFERENTIAL (03/09/2020 12:45 AM CDT) WBC 16.8(H) 3.5 - 10.5 10? 3 /uL 03/09/2020 12:57 AM [facility] RBC 3.34(L) 4.30 - 5.70 10? 6 /uL 03/09/2020 12:57 AM [facility] Hemoglobin 9.7(L) 13.5 - 17.5 g/dL 03/09/2020 12:57 AM [facility] Hematocrit 28.1(L) 39.0 - 50.0 % 03/09/2020 12:57 AM [facility] MCV 84.1 81.0 - 97.0 fL 03/09/2020 12:57 AM [facility] MCH 29.0 28.0 - 34.0 pg 03/09/2020 12:57 AM [facility] MCHC 34.5 32.0 - 36.0 g/dL 03/09/2020 12:57 AM [facility] Platelet Count 268 150 - 400 10? 3 /uL 03/09/2020 12:57 AM [facility] RDW-SD 51.3(H) 36.0 - 50.0 fL 03/09/2020 12:57 AM [facility] RDW-CV 17.2(H) 11.2 - 14.8 % 03/09/2020 12:57 AM [facility] MPV 12.8 9.3 - 12.8 fL 03/09/2020 12:57 AM [facility] nRBC Absolute 0.15(H) 0 10? 3 /uL 03/09/2020 12:57 AM [facility] nRBC Auto 0.9(H) 0 /100 WBC 03/09/2020 12:57 AM [facility] Neutrophils % 85.1(H) 35.0 - 70.0 % 03/09/2020 12:57 AM [facility] Lymphocytes % 11.2(L) 19.7 - 55.1 % 03/09/2020 12:57 AM [facility] Monocytes % 2.6(L) 3.0 - 15.0 % 03/09/2020 12:57 AM [facility] Eosinophils % 0.0 0.0 - 6.0 % 03/09/2020 12:57 AM [facility] Basophil % 0.1 0.0 - 1.5 % 03/09/2020 12:57 AM [facility] Neutrophils Absolute 14.3(H) 1.6 - 7.0 10? 3 /uL 03/09/2020 12:57 AM [facility] Lymphocyte Absolute 1.9 0.8 - 2.9 10? 3 /uL 03/09/2020 12:57 AM [facility] Monocytes Absolute 0.44 0.14 - 0.66 10? 3 /uL 03/09/2020 12:57 AM [facility] Eosinophils Absolute 0.00 0.00 - 0.45 10? 3 /uL 03/09/2020 12:57 AM [facility] Basophils Absolute 0.01 0.00 - 0.06 10? 3 /uL 03/09/2020 12:57 AM [facility] Immature Granulocytes % 1.0 0.0 - 1.0 % 03/09/2020 12:57 AM [facility] Blood BLOOD SPECIMEN / Unknown Venipuncture / Unknown 03/09/2020 12:45 AM CDT 03/09/2020 12:50 AM T Tiffanie Nguyen TRANSCRIBING OPERATOR [employer] DEMONSTRATOR LAB - HEMATOLOG Y ORDERABLES [address] [address], [facility] [phone] * CULTURE URINE (03/08/2020 11:19 PM CDT) [facility] Culture Urine No growth (<100 CFU/mL) SP[facility]ER 03/10/2020 6:14 AM CDT [facility] MICROBIOLOGY Urine URINE SPECIMEN OBTAINED BY CLEAN CATCH PROCEDURE / Unknown Collection / Unknown 03/08/2020 11:19 PM CDT 03/08/2020 11:22 PM CDT Joe Dennison MD LAB - MICROBIOLOGY O RDERABLES [facility] MICRO[facility]OLOGY [address] [place] [address], [facility] [phone] * MAGNESIUM BLOOD (03/08/2020 9:40 PM CDT) [facility] Magnesium 1.9 1.6 - 2.6 mg/dL 03/08/2020 10:04 PM CDT [facility] Blood BLOOD SPECIMEN / Unknown Venipuncture / Unknown 03/08/2020 9:40 PM CDT 03/08/2020 9:44 PM CDT Kenneth Martins MD LAB - CHEMISTRY [place] [address] [address], [facility] [phone] * (ABNORMAL) BASIC METABOLIC PANEL (CALCIUM TOTAL) (03/08/2020 9:40 PM CDT) [facility] BUN 19 7 - 26 mg/dL 03/08/2020 10:04 PM CDT [facility] Creatinine 0.9 0.6 - 1.2 mg/dL 03/08/2020 10:04 PM CDT [facility] Sodium 141 136 - 145 mmol/L 03/08/2020 10:04 PM CDT [facility] Potassium 3.6 3.5 - 4.5 mmol/L 03/08/2020 10:04 PM CDT [facility] Chloride 103 98 - 107 mmol/L 03/08/2020 10:04 PM CDT [facility] CO2 24 22 - 29 mmol/L 03/08/2020 10:04 PM [facility] Glucose 87 70 - 115 mg/dL 03/08/2020 10:04 PM [facility] Calcium 7.7(L) 8.4 - 10.2 mg/dL 03/08/2020 10:04 PM [facility] Anion Gap 18 8 - 18 03/08/2020 10:04 PM [facility] BUN/Creatinine Ratio 21 7 - 23 03/08/2020 10:04 PM [facility] Osmolality Calculated 294 270 - 300 mOsm/kg 03/08/2020 10:04 PM [facility] eGFR >60 >60 mL/min/1.7 3 m2 03/08/2020 10:04 PM [facility] Blood BLOOD SPECIMEN / Unknown Venipuncture / Unknown 03/08/2020 9:40 PM CDT 03/08/2020 9:44 PM T Kenneth Martins MD LAB - CHEMISTRY [facility] [facility] Organization Address City/State/ZIP Co de Phone Number [address] [address] [phone] * (ABNORMAL) URINALYSIS REFLEX TO MICROSCOPIC NO CULTURE (03/08/2020 7:08 PM [facility]) Color UA Yellow Straw, Yellow, Colorless 03/08/2020 7:49 PM [facility] Clarity UA Clear Clear, Slt Cloudy 03/08/2020 7:49 PM [facility] Specific [place] UA 1.012 1.005 - 1.030 03/08/2020 7:49 PM [facility] pH UA 7.0 5.0 - 8.0 pH 03/08/2020 7:49 PM [facility] Protein UA 1+(A) Negative mg/dL 03/08/2020 7:49 PM [facility] Glucose UA Negative Negative mg/dL 03/08/2020 7:49 PM [facility] Ketone UA Trace(A) Negative mg/dL 03/08/2020 7:49 PM [facility] Bilirubin UA Negative Negative mg/dL 03/08/2020 7:49 PM CDT [facility] Blood UA 1+(A) Negative 03/08/2020 7:49 PM CDT [facility] Nitrite UA Negative Negative 03/08/2020 7:49 PM CDT [facility] Leukocyte Esterase Negative Negative 03/08/2020 7:49 PM CDT [facility] Urobilinogen UA Negative Negative mg/dL 03/08/2020 7:49 PM CDT [facility] RBC UA 0-2 None Seen, 0-2, 3-5 /HPF 03/08/2020 7:49 PM CDT [facility] WBC UA 0-5 None Seen, 0-5 /HPF 03/08/2020 7:49 PM CDT [facility] Bacteria UA Trace None, Trace /HPF 03/08/2020 7:49 PM CDT [facility] Squamous Epithelial Cells UA None Seen None Seen, 0-2 /HPF 03/08/2020 7:49 PM CDT [facility] Mucus UA 1+ None, 1+ /LPF 03/08/2020 7:49 PM CDT [facility] Urine URINE SPECIMEN OBTAINED BY CLEAN CATCH PROCEDURE / Unknown Collection / Unknown 03/08/2020 7:08 PM CDT 03/08/2020 7:15 PM CDT Narrative [facility] - 03/08/2020 7:49 PM CDT Joe Dennison MD LAB - URINALYSIS ORD ERABLES Performing Organization Address City/[facility]/ZIP Co de Phone Number [address] [address], [facility] [phone] * CULTURE BLOOD (03/08/2020 7:04 PM CDT) Culture No growth day 5 SP[facility]ER 03/13/2020 11:30 PM CDT [facility] MICROBIOLOGY Blood PERIPHERAL BLOOD / Unknown Venipuncture / Unknown 03/08/2020 7:04 PM CDT 03/08/2020 7:09 PM CDT Joe Dennison MD LAB - MICROBIOLOGY O RDERABLES Performing Organization Address City/[facility]/ZIP Co de Phone Number [facility] MICRO[facility] [address] [place] [address], [facility] [phone] * CULTURE BLOOD (03/08/2020 6:45 PM CDT) Culture No growth day 5 SPENCER 03/13/2020 11:30 PM CDT [facility] MICROBIOLOG[facility] Blood PERIPHERAL BLOOD / Unknown Venipuncture / Unknown 03/08/2020 6:45 PM CDT 03/08/2020 7:09 PM CDT Joe Dennison MD LAB - MICROBIOLOGY O RDERABLES [facility] MICRO[facility] [address] [place] [address], [facility] [phone] * (ABNORMAL) VANCOMYCIN LEVEL TROUGH (03/08/2020 8:07 AM CDT) Pathologist [facility] [place] Vancomycin Trough 24.4(H) 10.0 - 20.0 mcg/mL 03/08/2020 8:53 AM CDT [facility] Blood BLOOD SPECIMEN / Unknown Venipuncture / Unknown 03/08/2020 8:07 AM CDT 03/08/2020 8:20 AM CDT Joe Dennison MD LAB - CHEMISTRY ORDE CHELA Performing Organization Address [facility]/ZIP Co de Phone Number [address] [address], [facility] [phone] * (ABNORMAL) ERYTHROCYTE SEDIMENTATION RATE (03/08/2020 2:23 AM CDT) Pathologist [facility] [place] Erythrocyte Sedimentation Rate Westergren 105(H) 0 - 15 MM/HR 03/08/2020 2:38 AM CDT [facility] Blood BLOOD SPECIMEN / Unknown Venipuncture / Unknown 03/08/2020 2:23 AM CDT 03/08/2020 2:27 AM CDT Joe Dennison MD LAB - HEMATOLOGY ORD ERABLES Performing Organization Address [facility]/ZIP Co de Phone Number [address] [address], [facility] [phone] * (ABNORMAL) C-REACTIVE PROTEIN (03/08/2020 2:23 AM CDT) Pathologist [facility] [place] C-Reactive Protein 20.0(H) <=0.5 mg/dL 03/08/2020 2:46 AM CDT [facility] Blood BLOOD SPECIMEN / Unknown Venipuncture / Unknown 03/08/2020 2:23 AM CDT 03/08/2020 2:27 AM CDT Joe Dennison MD LAB - CHEMISTRY [place] [address] [address], [facility] [phone] * (ABNORMAL) D-DIMER (03/08/2020 2:23 AM CDT) [facility] D-Dimer Quantitative 3.74(H) <=0.50 mcg/mL FEU 03/08/2020 2:41 AM CDT [facility] Comment: In the absence of clinical [...] SPECIMEN / Unknown Venipuncture / Unknown 03/08/2020 2:23 AM CDT 03/08/2020 2:27 AM CDT Joe Dennison MD LAB - COAGULATION OR DERABLES Performing Organization Address [facility]/ZIP Co de Phone Number [address] [address], [facility] [phone] * (ABNORMAL) LDH BLOOD (03/08/2020 2:23 AM CDT) [facility] Total 518(H) 125 - 243 Units/L 03/08/2020 2:47 AM CDT [facility] Blood BLOOD SPECIMEN / Unknown Venipuncture / Unknown 03/08/2020 2:23 AM CDT 03/08/2020 2:27 AM CDT Joe Dennison MD LAB - CHEMISTRY [place] Performing Organization Address [facility]/ZIP Co de Phone Number [address] [address], [facility] [phone] * (ABNORMAL) FERRITIN (03/08/2020 2:23 AM CDT) [facility] Ferritin 1,433(H) 22 - 275 ng/mL 03/08/2020 3:39 AM CDT [facility] Comment:Result obtained by [email or web address] [email or web address]. Blood BLOOD SPECIMEN / Unknown Venipuncture / Unknown 03/08/2020 2:23 AM CDT 03/08/2020 2:27 AM CDT Joe Dennison MD LAB - CHEMISTRY [place] Performing Organization Address City/[facility]/ZIP Co de Phone Number [address] [address], [facility] [phone] * PHOSPHORUS BLOOD (03/08/2020 2:23 AM CDT) Pathologist [facility] [place] Phosphorus 3.4 2.3 - 4.7 mg/dL 03/08/2020 2:47 AM CDT [facility] Blood BLOOD SPECIMEN / Unknown Venipuncture / Unknown 03/08/2020 2:23 AM CDT 03/08/2020 2:27 AM CDT Tiffanie Nguyen TRANSCRIBING OPERATOR [facility] LAB - CHEMISTRY ORDERABLES Performing Organization Address [facility]/ZIP Co de Phone Number [address] [address], [facility] [phone] * MAGNESIUM BLOOD (03/08/2020 2:23 AM CDT) Magnesium 2.2 1.6 - 2.6 mg/dL 03/08/2020 2:47 AM T [facility] Blood BLOOD SPECIMEN / Unknown Venipuncture / Unknown 03/08/2020 2:23 AM CDT 03/08/2020 2:27 AM CDT Tiffanie Alvess [facility] LAB - CHEMISTRY ORDERABLES Performing Organization Address City/[facility]/ZIP Co de Phone Number [address] [address], [facility] [phone] * (ABNORMAL) COMPREHENSIVE METABOLIC PANEL (03/08/2020 2:23 AM CDT) BUN 14 7 - 26 mg/dL 03/08/2020 2:47 AM [facility] Creatinine 0.9 0.6 - 1.2 mg/dL 03/08/2020 2:47 AM T [facility] Sodium 144 136 - 145 mmol/L 03/08/2020 2:47 AM [facility] Potassium 4.1 3.5 - 4.5 mmol/L 03/08/2020 2:47 AM [facility] Chloride 108(H) 98 - 107 mmol/L 03/08/2020 2:47 AM [facility] CO2 25 22 - 29 mmol/L 03/08/2020 2:47 AM [facility] Glucose 98 70 - 115 mg/dL 03/08/2020 2:47 AM [facility] Calcium 8.0(L) 8.4 - 10.2 mg/dL 03/08/2020 2:47 AM [facility] Protein Total 5.2(L) 6.0 - 8.3 g/dL 03/08/2020 2:47 AM [facility] Albumin 1.7(L) 3.4 - 5.0 g/dL 03/08/2020 2:47 AM [facility] Bilirubin Total 0.3 0.2 - 1.2 mg/dL 03/08/2020 2:47 AM [facility] Alkaline Phosphatase 74 40 - 150 Units/L 03/08/2020 2:47 AM [facility] ALT 47 0 - 55 Units/L 03/08/2020 2:47 AM [facility] AST 17 5 - 34 Units/L 03/08/2020 2:47 AM [facility] Anion Gap 15 8 - 18 03/08/2020 2:47 AM [facility] BUN/Creatinine Ratio 16 7 - 23 03/08/2020 2:47 AM [facility] Osmolality Calculated 298 270 - 300 mOsm/kg 03/08/2020 2:47 AM [facility] Albumin/Globulin Ratio 0.5(L) 1.1 - 2.3 03/08/2020 2:47 AM [facility] eGFR >60 >60 mL/min/1.7 3 m2 03/08/2020 2:47 AM [facility] Blood BLOOD SPECIMEN / Unknown Venipuncture / Unknown 03/08/2020 2:23 AM CDT 03/08/2020 2:27 AM T Tiffanie Nguyen TRANSCRIBING OPERATOR [employer] [facility] - CHEMISTRY ORDERABLES [address] [id number] [phone] * (ABNORMAL) CBC W AUTO DIFFERENTIAL (03/08/2020 12:23 AM T) WBC 10.8(H) 3.5 - 10.5 10? 3 /uL 03/08/2020 12:40 AM [facility] Comment:The WBC count is cor rected by the instrument for nRBC's RBC 3.53(L) 4.30 - 5.70 10? 6 /uL 03/08/2020 12:40 AM [facility] Hemoglobin 10.1(L) 13.5 - 17.5 g/dL 03/08/2020 12:40 AM [facility] Hematocrit 30.6(L) 39.0 - 50.0 % 03/08/2020 12:40 AM [facility] MCV 86.7 81.0 - 97.0 fL 03/08/2020 12:40 AM [facility] MCH 28.6 28.0 - 34.0 pg 03/08/2020 12:40 AM [facility] MCHC 33.0 32.0 - 36.0 g/dL 03/08/2020 12:40 AM [facility] Platelet Count 238 150 - 400 10? 3 /uL 03/08/2020 12:40 AM [facility] RDW-SD 55.3(H) 36.0 - 50.0 fL 03/08/2020 12:40 AM [facility] RDW-CV 19.5(H) 11.2 - 14.8 % 03/08/2020 12:40 AM [facility] MPV 03/08/2020 12:40 AM [facility] Comment:NOT MEASURED nRBC Absolute 0.11(H) 0 10? 3 /uL 03/08/2020 12:40 AM [facility] nRBC Auto 1.0(H) 0 /100 WBC 03/08/2020 12:40 AM [facility] Neutrophils % 87.4(H) 35.0 - 70.0 % 03/08/2020 12:40 AM [facility] Lymphocytes % 7.6(L) 19.7 - 55.1 % 03/08/2020 12:40 AM [facility] Monocytes % 3.7 3.0 - 15.0 % 03/08/2020 12:40 AM [facility] Eosinophils % 0.0 0.0 - 6.0 % 03/08/2020 12:40 AM [facility] Basophil % 0.1 0.0 - 1.5 % 03/08/2020 12:40 AM [facility] Neutrophils Absolute 9.5(H) 1.6 - 7.0 10? 3 /uL 03/08/2020 12:40 AM CDT [facility] Lymphocyte Absolute 0.8 0.8 - 2.9 10? 3 /uL 03/08/2020 12:40 AM CDT [facility] Monocytes Absolute 0.40 0.14 - 0.66 10? 3 /uL 03/08/2020 12:40 AM CDT [facility] Eosinophils Absolute 0.00 0.00 - 0.45 10? 3 /uL 03/08/2020 12:40 AM CDT [facility] Basophils Absolute 0.01 0.00 - 0.06 10? 3 /uL 03/08/2020 12:40 AM T [facility] Immature Granulocytes % 1.2(H) 0.0 - 1.0 % 03/08/2020 12:40 AM CDT [facility] Blood BLOOD SPECIMEN / Unknown Venipuncture / Unknown 03/08/2020 12:23 AM CDT 03/08/2020 12:31 AM CDT Tiffanie Nguyen TRANSCRIBING OPERATOR [employer] [facility] - HEMATOLOG Y ORDERABLES [address] [id number] [phone] * (ABNORMAL) SARS-COV-2 (COVID-19) IN HOUSE (03/07/2020 8:56 PM CDT) COVID-19 PCR Detected( AA) Not detected, Invalid 03/09/2020 8:54 AM CDT [facility] MICROBIOLOGY Microbiology SPECIMEN FROM NASOPHARYNGEAL STRUCTURE / Unknown Collection / Unknown 03/07/2020 8:56 PM CDT 03/07/2020 8:59 PM CDT Narrative [facility] MICROBIOLOGY - 03/09/2020 8:54 AM CDT This Real Time RT-PCR assay was developed and its performance characteristics determined by [facility]. This test has been authorized by the Food and Drug administration (FDA)under an Emergency Use Authorization (EUA). This test has been validated [...] the authorization is terminated or revoked sooner. Joce Damian DO LAB - MICROBIOLOGY ORDERABLES [facility] MICROBIOLOGY [address] [place] [address], [facility] [phone] * XR ABDOMEN KUB PORTABLE (03/07/2020 12:35 [...] both lungs. Dictated by Logan Shi MD (information services vice president). I, Dr. BOGDAN RUBIO have personally reviewed [...] both lungs. Dictated by Logan Shi MD (information services vice president). I, Dr. BOGDAN RUBIO have personally reviewed and interpreted this examination/study. This report was electronically signed by BOGDAN RUBIO on 03/08/2020 10:39AM . Bertin Rush DO DIAGNOSTIC IMAGING O RDERABLES * PHOSPHORUS BLOOD (03/07/2020 12:05 AM CDT) Phosphorus 2.9 2.3 - 4.7 mg/dL 03/07/2020 12:42 AM CDT [facility] Blood BLOOD SPECIMEN / Unknown Venipuncture / Unknown 03/07/2020 12:05 AM CDT 03/07/2020 12:11 AM CDT Tiffanie Alvess TRANSCRIBING OPERATOR [facility] LAB - CHEMISTRY ORDERABLES Performing Organization Address City/[facility]/ZIP Co de Phone Number [address] [phone] * MAGNESIUM BLOOD (03/07/2020 12:05 AM CDT) Magnesium 2.3 1.6 - 2.6 mg/dL 03/07/2020 12:42 AM CDT [facility] Blood BLOOD SPECIMEN / Unknown Venipuncture / Unknown 03/07/2020 12:05 AM CDT 03/07/2020 12:11 AM CDT Tiffanie Alvess TRANSCRIBING OPERATOR [facility] - CHEMISTRY ORDERABLES [address] [address], [facility] [phone] * (ABNORMAL) COMPREHENSIVE METABOLIC PANEL (03/07/2020 12:05 AM CDT) BUN 12 7 - 26 mg/dL 03/07/2020 12:42 AM CDT [facility] Creatinine 0.9 0.6 - 1.2 mg/dL 03/07/2020 12:42 AM CDT [facility] Sodium 144 136 - 145 mmol/L 03/07/2020 12:42 AM [facility] Potassium 4.2 3.5 - 4.5 mmol/L 03/07/2020 12:42 AM [facility] Chloride 109(H) 98 - 107 mmol/L 03/07/2020 12:42 AM [facility] CO2 26 22 - 29 mmol/L 03/07/2020 12:42 AM [facility] Glucose 109 70 - 115 mg/dL 03/07/2020 12:42 AM [facility] Calcium 8.3(L) 8.4 - 10.2 mg/dL 03/07/2020 12:42 AM [facility] Protein Total 5.1(L) 6.0 - 8.3 g/dL 03/07/2020 12:42 AM [facility] Albumin 1.9(L) 3.4 - 5.0 g/dL 03/07/2020 12:42 AM [facility] Bilirubin Total 0.2 0.2 - 1.2 mg/dL 03/07/2020 12:42 AM [facility] Alkaline Phosphatase 75 40 - 150 Units/L 03/07/2020 12:42 AM [facility] ALT 69(H) 0 - 55 Units/L 03/07/2020 12:42 AM [facility] AST 21 5 - 34 Units/L 03/07/2020 12:42 AM [facility] Anion Gap 13 8 - 18 03/07/2020 12:42 AM [facility] BUN/Creatinine Ratio 13 7 - 23 03/07/2020 12:42 AM [facility] Osmolality Calculated 298 270 - 300 mOsm/kg 03/07/2020 12:42 AM [facility] Albumin/Globulin Ratio 0.6(L) 1.1 - 2.3 03/07/2020 12:42 AM [facility] eGFR >60 >60 mL/min/1.7 3 m2 03/07/2020 12:42 AM [facility] Blood BLOOD SPECIMEN / Unknown Venipuncture / Unknown 03/07/2020 12:05 AM CDT 03/07/2020 12:11 AM [facility] Tiffanie Nguyen TRANSCRIBING OPERATOR [facility] LAB - CHEMISTRY ORDERABLES [facility] [address] [place] [address], [facility] [phone] * (ABNORMAL) CBC W AUTO DIFFERENTIAL (03/07/2020 12:05 AM [facility]) WBC 14.0(H) 3.5 - 10.5 10? 3 /uL 03/07/2020 12:14 AM [facility] RBC 3.36(L) 4.30 - 5.70 10? 6 /uL 03/07/2020 12:14 AM [facility] Hemoglobin 9.6(L) 13.5 - 17.5 g/dL 03/07/2020 12:14 AM [facility] Hematocrit 28.8(L) 39.0 - 50.0 % 03/07/2020 12:14 AM [facility] MCV 85.7 81.0 - 97.0 fL 03/07/2020 12:14 AM [facility] MCH 28.6 28.0 - 34.0 pg 03/07/2020 12:14 AM [facility] MCHC 33.3 32.0 - 36.0 g/dL 03/07/2020 12:14 AM [facility] Platelet Count 260 150 - 400 10? 3 /uL 03/07/2020 12:14 AM [facility] RDW-SD 52.1(H) 36.0 - 50.0 fL 03/07/2020 12:14 AM [facility] RDW-CV 17.1(H) 11.2 - 14.8 % 03/07/2020 12:14 AM [facility] MPV 11.6 9.3 - 12.8 fL 03/07/2020 12:14 AM [facility] nRBC Absolute 0.09(H) 0 10? 3 /uL 03/07/2020 12:14 AM [facility] nRBC Auto 0.6(H) 0 /100 WBC 03/07/2020 12:14 AM [facility] Neutrophils % 91.1(H) 35.0 - 70.0 % 03/07/2020 12:14 AM [facility] Lymphocytes % 3.8(L) 19.7 - 55.1 % 03/07/2020 12:14 AM [facility] Monocytes % 4.1 3.0 - 15.0 % 03/07/2020 12:14 AM [facility] Eosinophils % 0.0 0.0 - 6.0 % 03/07/2020 12:14 AM [facility] Basophil % 0.1 0.0 - 1.5 % 03/07/2020 12:14 AM [facility] Neutrophils Absolute 12.7(H) 1.6 - 7.0 10? 3 /uL 03/07/2020 12:14 AM [facility] Lymphocyte Absolute 0.5(L) 0.8 - 2.9 10? 3 /uL 03/07/2020 12:14 AM [facility] Monocytes Absolute 0.57 0.14 - 0.66 10? 3 /uL 03/07/2020 12:14 AM [facility] Eosinophils Absolute 0.00 0.00 - 0.45 10? 3 /uL 03/07/2020 12:14 AM [facility] Basophils Absolute 0.01 0.00 - 0.06 10? 3 /uL 03/07/2020 12:14 AM [facility] Immature Granulocytes % 0.9 0.0 - 1.0 % 03/07/2020 12:14 AM [facility] Blood BLOOD SPECIMEN / Unknown Venipuncture / Unknown 03/07/2020 12:05 AM CDT 03/07/2020 12:11 AM CDT Tiffanie Nguyen TRANSCRIBING OPERATOR [facility] LAB - HEMATOLOG Y ORDERABLES [address] [address], [facility] [phone] * XR ABDOMEN KUB (03/06/2020 10:25 PM CDT) Anatomical Region Laterality Modality Abdomen Radiographic Chayito ging 03/07/2020 10:2 5 AM CDT Impressions 03/08/2020 10:38 AM CDT FINDINGS/IMPRESSION: An enteric tube terminates in the proximal stomach with side port in the distal esophagus; advancement into the stomach is recommended. Dictated by Logan Shi MD (information services vice president). Dr. BOGDAN Harris have personally reviewed and interpreted this examination/study. [...] is recommended. Dictated by Logan Shi MD (information services vice president). I, Dr. BOGDAN RUBIO have personally reviewed and interpreted this examination/study. This report was electronically signed by BOGDAN RUBIO on 03/08/2020 10:38AM . Joe Dennison MD DIAGNOSTIC IMAGING O RDERABLES * (ABNORMAL) BLOOD GASES ARTERIAL (03/06/2020 9:21 PM CDT) pH Arterial 7.42 7.35 - 7.45 03/06/2020 9:28 PM [facility] pCO2 Arterial 41 35 - 45 mmHg 03/06/2020 9:28 PM [facility] pO2 Arterial 144(H) 77 - 101 mmHg 03/06/2020 9:28 PM [facility] HCO3 Arterial 26.1(H) 22.0 - 26.0 mmol/L 03/06/2020 9:28 PM [facility] TCO2 Arterial 27.3 25.0 - 29.0 mmol/L 03/06/2020 9:28 PM [facility] Base Excess Arterial 1.5 -2.0 - 2.0 mmol/L 03/06/2020 9:28 PM [facility] Hemoglobin Arterial 8.7(L) 13.5 - 17.5 g/dL 03/06/2020 9:28 PM CDT [facility] Oxyhemoglobin Arterial 97.3 95.0 - 100.0 % 03/06/2020 9:28 PM CDT [facility] Carboxyhemoglobin 0.3 0.0 - 3.0 % 03/06/2020 9:28 PM CDT [facility] Methemoglobin 0.3 0.0 - 2.0 % 03/06/2020 9:28 PM CDT [facility] FI O2 Arterial 60.0 % 03/06/2020 9:28 PM CDT [facility] Blood, arterial ARTERIAL BLOOD SPECIMEN / Unknown Arterial Puncture / Unknown 03/06/2020 9:21 PM CDT 03/06/2020 9:25 PM CDT Bertin Rush DO LAB - BLOOD GASES OR DERABLES [place] [phone], [facility] [phone] * PTT [facility] (03/06/2020 6:16 PM CDT) APTT 26.0 23.0 - 38.4 Seconds 03/06/2020 6:43 PM CDT [facility] Comment:Suggested therapeuti c range for full dose I.V. unfractionated heparin therapy for venous thromboembolism is 71 to 109 seconds. Blood BLOOD SPECIMEN / Unknown Venipuncture / Unknown 03/06/2020 6:16 PM CDT 03/06/2020 6:30 PM CDT Joe Dennison MD LAB - COAGULATION OR DERABLES [address] [address], [facility] [phone] * PT-INR [facility] (03/06/2020 6:16 PM CDT) PT 14.7 12.1 - 14.8 Seconds 03/06/2020 6:42 PM CDT [facility] INR 1.2 See Comment 03/06/2020 6:42 PM CDT [facility] Comment:The suggested therap eutic range for standard coumadin (warfarin) therapy is an INR of 2.0-3.0. For high-risk patients (Mechanical Mitral Valve Prosthesis, etc.), the suggested prophylactic therapeutic range is an INR of 2.5-3.5. Blood BLOOD SPECIMEN / Unknown Venipuncture / Unknown 03/06/2020 6:16 PM CDT 03/06/2020 6:30 PM CDT Joe Dennison MD LAB - COAGULATION OR DERABLES Performing Organization Address [facility]/ZIP Co de Phone Number [address] [address], [facility] [phone] * MAGNESIUM BLOOD (03/06/2020 6:16 PM CDT) Magnesium 2.0 1.6 - 2.6 mg/dL 03/06/2020 6:52 PM CDT [facility] Blood BLOOD SPECIMEN / Unknown Venipuncture / Unknown 03/06/2020 6:16 PM CDT 03/06/2020 6:31 PM CDT Joe Dennison MD LAB - CHEMISTRY [place] Performing Organization Address [facility]/ZIP Co de Phone Number [address] [address], [facility] [phone] * PHOSPHORUS BLOOD (03/06/2020 6:16 PM CDT) Phosphorus 4.4 2.3 - 4.7 mg/dL 03/06/2020 7:13 PM CDT [facility] Comment:Confirmed by repeat analysis. Blood BLOOD SPECIMEN / Unknown Venipuncture / Unknown 03/06/2020 6:16 PM CDT 03/06/2020 6:31 PM CDT Joe Dennison MD LAB - CHEMISTRY [place] Performing Organization Address City/[facility]/ZIP Co de Phone Number [address] [phone] [phone] * (ABNORMAL) COMPREHENSIVE METABOLIC PANEL (03/06/2020 6:16 PM [facility]) BUN 12 7 - 26 mg/dL 03/06/2020 6:52 PM [facility] Creatinine 0.9 0.6 - 1.2 mg/dL 03/06/2020 6:52 PM [facility] Sodium 141 136 - 145 mmol/L 03/06/2020 6:52 PM [facility] Potassium 4.5 3.5 - 4.5 mmol/L 03/06/2020 6:52 PM [facility] Chloride 108(H) 98 - 107 mmol/L 03/06/2020 6:52 PM [facility] CO2 24 22 - 29 mmol/L 03/06/2020 6:52 PM [facility] Glucose 130(H) 70 - 115 mg/dL 03/06/2020 6:52 PM [facility] Calcium 8.3(L) 8.4 - 10.2 mg/dL 03/06/2020 6:52 PM [facility] Protein Total 5.0(L) 6.0 - 8.3 g/dL 03/06/2020 6:52 PM [facility] Albumin 1.8(L) 3.4 - 5.0 g/dL 03/06/2020 6:52 PM [facility] Bilirubin Total 0.2 0.2 - 1.2 mg/dL 03/06/2020 6:52 PM [facility] Alkaline Phosphatase 73 40 - 150 Units/L 03/06/2020 6:52 PM [facility] ALT 74(H) 0 - 55 Units/L 03/06/2020 6:52 PM [facility] AST 28 5 - 34 Units/L 03/06/2020 6:52 PM [facility] Anion Gap 14 8 - 18 03/06/2020 6:52 PM [facility] BUN/Creatinine Ratio 13 7 - 23 03/06/2020 6:52 PM [facility] Osmolality Calculated 294 270 - 300 mOsm/kg 03/06/2020 6:52 PM [facility] Albumin/Globulin Ratio 0.6(L) 1.1 - 2.3 03/06/2020 6:52 PM [facility] eGFR >60 >60 mL/min/1.7 3 m2 03/06/2020 6:52 PM [facility] Blood BLOOD SPECIMEN / Unknown Venipuncture / Unknown 03/06/2020 6:16 PM CDT 03/06/2020 6:31 PM CDT Joe Dennison MD LAB - CHEMISTRY [place] [facility] Organization Address City/State/ZIP Co de Phone Number [address] [address], [facility] [phone] * (ABNORMAL) CBC W AUTO DIFFERENTIAL (03/06/2020 6:16 PM CDT) WBC 15.3(H) 3.5 - 10.5 10? 3 /uL 03/06/2020 6:33 PM [facility] Comment:The WBC count is cor rected by the instrument for nRBC's RBC 3.02(L) 4.30 - 5.70 10? 6 /uL 03/06/2020 6:33 PM [facility] Hemoglobin 8.8(L) 13.5 - 17.5 g/dL 03/06/2020 6:33 PM [facility] Hematocrit 25.4(L) 39.0 - 50.0 % 03/06/2020 6:33 PM [facility] MCV 84.1 81.0 - 97.0 fL 03/06/2020 6:33 PM [facility] MCH 29.1 28.0 - 34.0 pg 03/06/2020 6:33 PM [facility] MCHC 34.6 32.0 - 36.0 g/dL 03/06/2020 6:33 PM [facility] Platelet Count 246 150 - 400 10? 3 /uL 03/06/2020 6:33 PM [facility] RDW-SD 50.7(H) 36.0 - 50.0 fL 03/06/2020 6:33 PM [facility] RDW-CV 16.8(H) 11.2 - 14.8 % 03/06/2020 6:33 PM [facility] MPV 11.8 9.3 - 12.8 fL 03/06/2020 6:33 PM [facility] nRBC Absolute 0.16(H) 0 10? 3 /uL 03/06/2020 6:33 PM [facility] nRBC Auto 1.0(H) 0 /100 WBC 03/06/2020 6:33 PM [facility] Neutrophils % 94.1(H) 35.0 - 70.0 % 03/06/2020 6:33 PM [facility] Lymphocytes % 2.0(L) 19.7 - 55.1 % 03/06/2020 6:33 PM [facility] Monocytes % 2.8(L) 3.0 - 15.0 % 03/06/2020 6:33 PM [facility] Eosinophils % 0.0 0.0 - 6.0 % 03/06/2020 6:33 PM [facility] Basophil % 0.1 0.0 - 1.5 % 03/06/2020 6:33 PM [facility] Neutrophils Absolute 14.4(H) 1.6 - 7.0 10? 3 /uL 03/06/2020 6:33 PM [facility] Lymphocyte Absolute 0.3(L) 0.8 - 2.9 10? 3 /uL 03/06/2020 6:33 PM [facility] Monocytes Absolute 0.43 0.14 - 0.66 10? 3 /uL 03/06/2020 6:33 PM [facility] Eosinophils Absolute 0.00 0.00 - 0.45 10? 3 /uL 03/06/2020 6:33 PM [facility] Basophils Absolute 0.01 0.00 - 0.06 10? 3 /uL 03/06/2020 6:33 PM [facility] Immature Granulocytes % 1.0 0.0 - 1.0 % 03/06/2020 6:33 PM [facility] Blood BLOOD SPECIMEN / Unknown Venipuncture / Unknown 03/06/2020 6:16 PM CDT 03/06/2020 6:31 PM CDT Joe Dennison MD LAB - HEMATOLOGY ORD ERABLES [facility] [address] [place] [address], [facility] [phone] * (ABNORMAL) BLOOD GASES ARTERIAL (03/06/2020 6:16 PM CDT) pH Arterial 7.37 7.35 - 7.45 03/06/2020 6:33 PM CDT [facility] pCO2 Arterial 46(H) 35 - 45 mmHg 03/06/2020 6:33 PM CDT [facility] pO2 Arterial 92 77 - 101 mmHg 03/06/2020 6:33 PM CDT [facility] HCO3 Arterial 26.0 22.0 - 26.0 mmol/L 03/06/2020 6:33 PM T [facility] TCO2 Arterial 27.4 25.0 - 29.0 mmol/L 03/06/2020 6:33 PM T [facility] Base Excess Arterial 0.5 -2.0 - 2.0 mmol/L 03/06/2020 6:33 PM T [facility] Hemoglobin Arterial 8.6(L) 13.5 - 17.5 g/dL 03/06/2020 6:33 PM T [facility] Oxyhemoglobin Arterial 94.7(L) 95.0 - 100.0 % 03/06/2020 6:33 PM T [facility] Carboxyhemoglobin 0.3 0.0 - 3.0 % 03/06/2020 6:33 PM [facility] Methemoglobin 0.8 0.0 - 2.0 % 03/06/2020 6:33 PM T [facility] FI O2 Arterial 60.0 % 03/06/2020 6:33 PM T [facility] Blood, arterial ARTERIAL BLOOD SPECIMEN / Unknown Arterial Puncture / Unknown 03/06/2020 6:16 PM CDT 03/06/2020 6:30 PM CDT Joe Dennison MD LAB - BLOOD GASES OR DERABLES [address] [address], [facility] [phone] * XR CHEST 1VW PORTABLE (03/06/2020 4:47 PM CDT) Anatomical Region Laterality Modality Chest Radiographic Chayito ging 03/07/2020 7:33 AM CDT Impressions 03/07/2020 2:25 PM CDT FINDINGS/IMPRESSION: An endotracheal tube terminates in the mid to distal trachea. There are bilateral interstitial and airspace opacities consistent with pulmonary edema or pneumonia, slightly increased. There is no pleural effusion or pneumothorax. Dictated by Logan Shi MD (information services vice president). I, Dr. JOHN BLUM MD have personally reviewed and interpreted this examination/study. This report was electronically signed by JOHN BLUM MD ??on 03/07/2020 2:25 PM . Narrative 03/07/2020 2:25 PM CDT EXAMINATION: XR CHEST 1VW PORTABLE HISTORY: R93.89: Abnormal CXR COMPARISON: 03/05/2020 Procedure Note John Blum MD - 03/07/2020 EXAMINATION: XR CHEST 1VW PORTABLE HISTORY: R93.89: Abnormal CXR COMPARISON: 03/05/2020 FINDINGS/IMPRESSION: An endotracheal tube terminates in the mid to distal trachea. There are bilateral interstitial and airspace opacities consistent with pulmonary edema or pneumonia, slightly increased. There is no pleural effusion or pneumothorax. Dictated by Logan Shi MD (information services vice president). I, Dr. JOHN BLUM MD have personally reviewed and interpreted this examination/study. This report was electronically signed by JOHN BLUM MD on03/07/2020 2:25 PM . Elkin Rosenbaum MD DIAGNOSTIC IMAGING O RDERABLES * PATHOLOGY TISSUE (03/06/2020 3:46 PM CDT) Case Report Surgical Pathology Report ? Case: [id number] ? Authorizing Provider: ??Elkin Rosenbaum MD ? Collected: ? 03/06/2020 03:46 PM ? Ordering Location: ? [facility] ? Received: ?03/07/2020 08:15 AM ? Pathologist: ? Alecia Abel MD ? Specimen: ?Lung, Right Middle Lobe, transbronchial lung biopsy RML ? 03/09/2020 3:06 PM [facility] Final Diagnosis Lung, right middle lobe, transbronchial biopsy: - Reactive alveolar parenchyma with mild chronic inflammation 03/09/2020 3:06 PM [facility] Microscopic Description and Comment [...] are negative for micro-organisms. 03/09/2020 3:06 PM [facility] Clinical History The patient [...] Procedure: Transbronchial lung biopsy 03/09/2020 3:06 PM T [facility] Gross Description The requisition and specimen(s) are labeled with the patient's name, Jalil Luis. Received in formalin, specimen A , are 3 castillo-white tissue fragment 0.1 cm in greatest dimension, with an aggregate measurement of 0.6 x 0.1 x 0.1 cm. Specimen is submitted in toto in cassette A1. KK 03/09/2020 3:06 PM T [facility] Disclaimer The performance characteristics of all immunohistochemical and indirect immunofluorescence stains (if any) cited in this report were determined by the Histopathology Laboratory of [facility]. Some of these tests were developed [...] the attending (teaching) pathologist. 03/09/2020 3:06 PM T [facility] Embedded Images 03/09/2020 3:06 PM T [facility] Biopsy, Excision (Lung, Right Middle Lobe) 03/06/2020 3:46 PM CDT 03/07/2020 8:15 AM CDT Comment:Pre-op diagnosis: Abnormal CXR [R93.89] Elkin Rosenbaum MD LAB - PATHOLOGY/CYTO LOGY ORDERABLES [facility] [address] [place] [address], [facility] [phone] * DIFFERENTIAL MANUAL FLUID (03/06/2020 3:41 PM CDT) Band Relative % Fluid 3 % 03/06/2020 5:36 PM CDT [facility] Segs % Fluid 64 % 03/06/2020 5:36 PM CDT [facility] Lymphocytes % Fluid 11 % 03/06/2020 5:36 PM CDT [facility] Monocytes % Fluid 16 % 03/06/2020 5:36 PM CDT [facility] Macrophages % Fluid 3 % 03/06/2020 5:36 PM CDT [facility] Atypical Lymphs % Fluid 3 % 03/06/2020 5:36 PM CDT [facility] Fluid BRONCHIOLOALVEOLAR LAVAGE / Unknown Collection / Unknown 03/06/2020 3:41 PM CDT 03/06/2020 3:53 PM CDT Elkin Rosenbaum MD LAB - BODY FLUID ORD ERABLES [address] [address], [facility] [phone] * CYTOLOGY NON-PIER WORKER PANEL (STL) (03/06/2020 3:41 PM CDT) Case Report Medical Cytology Report ? Case: [id number] ? Authorizing Provider: ??Elkin Rosenbaum MD ? Collected: ? 03/06/2020 03:41 PM ? Ordering Location: ? [facility] ? Received: ?03/07/2020 07:01 AM ? Pathologist: ? Nick Gutierrez MD ? Specimen: ?Bronch Alveolar Lav, RML ? 03/08/2020 2:56 PM CDT [facility] Specimen Adequacy Adequate cellularity for evaluation. 03/08/2020 2:56 PM T [facility] Final Diagnosis Bronchial alveolar lavage, cytology: - Negative for malignancy - Macrophages, bronchial cells, and mucin - GMS stain is negative for fungal elements 03/08/2020 2:56 PM T [facility] Clinical History Fever, unspecified fever cause 03/08/2020 2:56 PM T [facility] Gross Description 1 pap stained cytospin slide and 1 cell block from 30cc collection fluid. 03/08/2020 2:56 PM [facility] Microscopic Description Performed. 03/08/2020 2:56 PM T [facility] Disclaimer The performance characteristics of all immunohistochemical and indirect immunofluorescence stains (if any) cited in this report were determined by the Histopathology Laboratory of [facility]. Some of these tests rely on the use of analyte-specific reagents and are subject to specific labeling requirements by the [place] Food and Drug Administration. Such tests were developed by the Histology Laboratory of [facility] and have not been cleared or approved [...] attending (teaching) pathologist. 03/08/2020 2:56 PM CDT [facility] Embedded Images 03/08/2020 2:56 PM T [facility] Pathology/Cytol ogy BRONCHIOLOALVEOLAR LAVAGE / Unknown Collection / Unknown 03/06/2020 3:41 PM CDT 03/07/2020 7:01 AM CDT Elkin Rosenbaum MD LAB - PATHOLOGY/CYTO LOGY ORDERABLES [facility] [address] [place], [place] [address] [phone] * FLOW CYTOMETRY BODY FLUID (03/06/2020 3:41 PM CDT) Case Report Flow Cytometry ?Case: [id number] ? Authorizing Provider: ??Elkin Rosenbaum MD ? Collected: ? 03/06/2020 03:41 PM ? Ordering Location: ? [facility] ? Received: ?03/06/2020 04:11 PM ? Pathologist: ? Margaret Hooker Mai, DO ? Specimen: ?Body Fluid ? 03/07/2020 10:38 AM CDT [facility] Final Diagnosis Body fluid, RML, flow cytometric immunophenotypic analysis: - Insufficient hematopoietic cells for analysis. - See interpretation. 03/07/2020 10:38 AM CDT [facility] Flow Cytometry Interpretation Preliminary characterization of the body fluid, RML, specimen demonstrates too few hematopoietic cells for flow cytometric analysis. A cytospin prepared from the flow cytometry specimen is reviewed for software quality specialist purposes. Flow cytometry is not performed. 03/07/2020 10:38 AM [facility] Flow Cytometry Results Too few hematopoetic cells for flow cytometric analysis. 03/07/2020 10:38 AM [facility] Client Specimen ID # [id number] 03/07/2020 10:38 AM [facility] Reason for test Fever, unspecified fever cause 03/07/2020 10:38 AM [facility] Disclaimer Test performed at [facility], [address] [place] [address], [id number]. *The established laboratory minimum viability is 70%. [...] high complexity clinical testing. 03/07/2020 10:38 AM [facility] Embedded Images 0 10:38 AM T [facility] Fluid BODY FLUID SPECIMEN / Unknown Collection / Unknown 03/06/2020 3:41 PM CDT 03/06/2020 4:11 PM CDT Comment:RML Elkin Rosenbaum MD LAB - PATHOLOGY/CYTO LOGY ORDERABLES [facility] [address] [place] [address]. [address] [phone] * (ABNORMAL) CELL COUNT W DIFFERENTIAL FLUID (03/06/2020 3:41 PM CDT) Color Fluid Matheson(A) Colorles s, Straw 03/06/2020 5:01 PM CDT [facility] Clarity Fluid Clear Clear 03/06/2020 5:01 PM CDT [facility] Volume Fluid 5.0 mL 03/06/2020 5:01 PM T [facility] WBC Calculation Fluid 48 /uL 03/06/2020 5:01 PM CDT [facility] RBC Calculation 2,010 /uL 0 5:01 PM CDT [facility] Differential Manual Differential to follow. 03/06/2020 5:01 PM CDT [facility] Fluid [place]OALVEOL[place] / Unknown Collection / Unknown 03/06/2020 3:41 PM CDT 03/06/2020 3:53 PM CDT Narrative [facility] - 03/06/2020 5:01 PM CDT No reference ranges established for body fluid cell counts. The reference ranges provided are derived from published literature. The test results must be integrated into the clinical context for interpretation. Elkin Rosenbaum MD LAB - BODY FLUID ORD ERABLES [address] [address], [facility] [phone] * LAB MISC TEST (03/06/2020 3:41 PM CDT) Test Name Coronavirus (COVID-19) SARS-CoV-2 PCR 05/02/2020 10:42 AM CDT [employer] Test Result See Scanned Report 05/02/2020 10:42 AM CDT [employer] Blood MISCELLANEOUS SAMPLES / Unknown Venipuncture / Unknown 03/06/2020 3:41 PM CDT 03/07/2020 8:23 AM CDT Joce Damian DO LAB SEND OUT [facility] [employer] [address] [place] [address] * CULTURE FUNGUS OTHER+FUNGUS SMEAR (03/06/2020 3:37 PM CDT) Culture No fungus isolated SPENCER 04/03/2020 12:08 PM CDT [facility] MICROBIOLOGY Fungus Stain No yeast or hyphae seen 04/03/2020 12:08 PM CDT [facility] MICROBIOLOGY Fungus Stain No Pneumocystis jirovecii 04/03/2020 12:08 PM CDT [facility] MICROBIOLOGY Microbiology BRONCHIOLOALVEOLAR LAVAGE / Unknown Collection / Unknown 03/06/2020 3:37 PM CDT 03/06/2020 4:10 PM CDT Elkin Rosenbaum MD LAB - MICROBIOLOGY O LEONARD Performing Organization Address [facility] de Phone Number [facility] MICROBIOLOGY [address] [place] [address], [facility] [phone] * HHV-6 QUANTITATIVE PCR (03/06/2020 3:36 PM CDT) See Scanned Document SEE SCANNED REPORT 03/09/2020 7:54 AM CDT [facility] REF LAB NON INTERF Microbiology BRONCHIOLOALVEOLAR LAVAGE / Unknown Collection / Unknown 03/06/2020 3:36 PM CDT 03/06/2020 4:06 PM CDT Elkin Rosenbaum MD LAB - MICROBIOLOGY O LEONARD Performing Organization Address [facility] de Phone Number [facility] REF LAB NON INTERF [address] [place] [phone], [place] * ADENOVIRUS PCR QUANTITATIVE (VIRACOR) (03/06/2020 3:36 PM CDT) See Scanned Document SEE SCANNED REPORT 03/09/2020 7:59 AM CDT [facility] REF LAB NON INTERF Microbiology BRONCHIOLOALVEOLAR LAVAGE / Unknown Collection / Unknown 03/06/2020 3:36 PM CDT 03/06/2020 4:06 PM CDT Elkin Rosenbaum MD LAB - MICROBIOLOGY O LEONARD Performing Organization Address [facility] de Phone Number [facility] REF LAB NON INTERF [address] [place] [phone] * CYTOMEGALOVIRUS DNA RT-PCR QUANT (03/06/2020 3:36 PM CDT) See Scanned Document SEE SCANNED REPORT 03/09/2020 8:01 AM CDT [facility] REF LAB NON INTERF Microbiology BRONCHIOLOALVEOLAR LAVAGE / Unknown Collection / Unknown 03/06/2020 3:36 PM CDT 03/06/2020 4:06 PM CDT Elkin Rosenbaum MD LAB - MICROBIOLOGY O LEONARD Performing Organization Address [facility] Co de Phone Number [facility] REF LAB NON INTERF [address] [place], [place] [phone] * FUNGAL PLUS PCR PROFILE II (03/06/2020 3:36 PM CDT) [facility] See Scanned Document See Scanned Report 03/08/2020 9:45 AM CDT [facility] RE[facility] LAB NON INTERF Microbiology BRONCHIOLOALVEOLAR LAVAGE / Unknown Collection / Unknown 03/06/2020 3:36 PM CDT 03/06/2020 4:08 PM CDT Elkin Rosenbaum MD LAB - MICROBIOLOGY Jenaro VALLE Performing Organization Address [facility] de Phone Number [facility] REF LAB NON INTERF [address] [place] [address] * ASPERGILLUS GALACTOMANNAN BAL/BLOOD (03/06/2020 3:36 PM CDT) [facility] See Scanned Document See Scanned Report 03/08/2020 9:47 AM CDT [facility] RE[facility] NON INTERF Microbiology BRONCHIOLOALVEOLAR LAVAGE / Unknown Collection / Unknown 03/06/2020 3:36 PM CDT 03/06/2020 4:08 PM CDT Elkin Rosenbaum MD LAB - MICROBIOLOGY Jenaro VALLE Performing Organization Address [facility] Co de Phone Number [facility] REF LAB NON INTERF [address] [place], [place] [phone] * RESPIRATORY PATHOGEN PANEL BY PCR (03/06/2020 3:36 PM CDT) [facility] Adenovirus PCR Not detected Not detected, Invalid, Indeterminate 03/06/2020 11:19 PM CDT [facility] MICROBIOLOGY Coronavirus PCR Not detected Not detected, Invalid, Indeterminate 03/06/2020 11:19 PM CDT [facility] MICROBIOLOGY Human Metapneumovirus PCR Not detected Not detected, Invalid, Indeterminate 03/06/2020 11:19 PM CDT [facility] MICROBIOLOGY Human Rhinovirus/Entero virus PCR Not detected Not detected, Invalid, Indeterminate 03/06/2020 11:19 PM CDT [facility] MICROBIOLOGY Influenza A PCR Not detected Not detected, Equivocal, Invalid, Indeterminate 03/06/2020 11:19 PM CDT [facility] MICROBIOLOGY Influenza B PCR Not detected Not detected, Invalid, Indeterminate 03/06/2020 11:19 PM CDT [facility] MICROBIOLOGY Parainfluenza Virus 1 PCR Not detected Not detected, Invalid, Indeterminate 03/06/2020 11:19 PM CDT [facility] MICROBIOLOGY Parainfluenza Virus 2 PCR Not detected Not detected, Invalid, Indeterminate 03/06/2020 11:19 PM CDT [facility] MICROBIOLOGY Parainfluenza Virus 3 PCR Not detected Not detected, Invalid, Indeterminate 03/06/2020 11:19 PM T [facility] MICROBIOLOGY Parainfluenza Virus 4 PCR Not detected Not detected, Invalid, Indeterminate 03/06/2020 11:19 PM T [facility] MICROBIOLOGY Respiratory Syncytial Virus PCR Not detected Not detected, Invalid, Indeterminate 03/06/2020 11:19 PM T [facility] MICROBIOLOGY Bordetella pertussis PCR Not detected Not detected, Invalid 03/06/2020 11:19 PM T [facility] MICROBIOLOGY Chlamydia pneumoniae PCR Not detected Not detected, Invalid, Indeterminate 03/06/2020 11:19 PM T [facility] MICROBIOLOGY Mycoplasma pneumoniae PCR Not detected Not detected, Invalid, Indeterminate 03/06/2020 11:19 PM T [facility] MICROBIOLOGY Microbiology BRONCHIOLOALVEOLAR LAVAGE / Unknown Collection / Unknown 03/06/2020 3:36 PM CDT 03/06/2020 4:10 PM CDT Narrative [facility] MICROBIOLOGY - 03/06/2020 11:19 PM CDT This test is able to detect the following human coronaviruses: HKU1, NL63, 229E, and OC43. It will NOT detect 2019 Novel Coronavirus (2019-nCoV). If 2019-nCoV is suspected contact Infection Prevention for isolation and testing guidance. Elkin Rosenbaum MD LAB - MICROBIOLOGY O RDERABLES [facility] MICROBIOLOGY [address] [place] [address] [place] [address] * CULTURE BRONCHOALVEOLAR LAVAGE QNT+GRAM STAIN (03/06/2020 3:36 PM CDT) Culture No growth SPENCER 03/08/2020 8:06 AM CDT [facility] MICROBIOLOGY Gram Stain Light Polymorphonuclear cells 03/08/2020 8:06 AM CDT [facility] MICROBIOLOGY Gram Stain No organisms seen 020 8:06 AM CDT [facility] MICROBIOLOGY Microbiology BRONCHIOLOALVEOLAR LAVAGE / Unknown Collection / Unknown 03/06/2020 3:36 PM CDT 03/06/2020 4:10 PM CDT Elkin Rosenbaum MD LAB - MICROBIOLOGY O LEONARD Performing Organization Address City/[facility]/ZIP Co de Phone Number [facility] MICROBIOLOGY [address] [place] [address], [facility] [phone] * CULTURE AFB+SMEAR (03/06/2020 3:36 PM CDT) Pathologist [facility] Culture No acid-fast bacillus isolated 04/17/2020 10:13 AM CDT [facility] MICROBIOLOGY AFB Smear No acid-fast bacilli seen 04/17/2020 10:13 AM CDT [facility] MICROBIOLOGY Microbiology BRONCHIOLOALVEOLAR LAVAGE / Unknown Collection / Unknown 03/06/2020 3:36 PM CDT 03/06/2020 4:10 PM CDT Elkin Rosenbaum MD LAB - MICROBIOLOGY O LEONARD Performing Organization Address City/[facility]/ZIP Co de Phone Number [facility] MICROBIOLOGY [address] [place] [address], [facility] [phone] * (ABNORMAL) SARS-COV-2 (COVID-19) IN HOUSE (03/06/2020 2:45 PM CDT) COVID-19 PCR Detected( AA) Not detected, Invalid 03/07/2020 11:57 AM CDT [facility] MICROBIOLOGY Microbiology SPECIMEN FROM NASOPHARYNGEAL STRUCTURE / Unknown Collection / Unknown 03/06/2020 2:45 PM CDT 03/06/2020 4:12 PM CDT Narrative [facility] MICROBIOLOGY - 03/07/2020 11:57 AM CDT This Real Time RT-PCR assay was developed and its performance characteristics determined by [facility]. This test has been authorized by the Food and Drug administration (FDA)under an Emergency Use Authorization (EUA). This test has been validated [...] the authorization is terminated or revoked sooner. Krupa Raines MD LAB - MICROBIOLOGY O LEONARD [facility] MICROBIOLOGY [address] [place] [address], [facility] [phone] * CULTURE BRONCHIAL BRUSHINGS QUANT (03/06/2020 2:45 PM CDT) Culture No growth SPENCER 03/08/2020 8:06 AM CDT [facility] MICROBIOLOGY Microbiology BRONCHIAL BRUSHINGS SPECIMEN / Unknown Collection / Unknown 03/06/2020 2:45 PM CDT 03/06/2020 4:10 PM CDT Elkin Rosenbaum MD LAB - MICROBIOLOGY O LEONARD [facility] [address] [place] [address], [facility] [phone] * BRONCHOSCOPY (03/06/2020 12:40 PM CDT) Report Endoscopy POC [facility] Advanced Diagnostic Bronchoscopy and Interventional Pulmonary Service __ _ Patient Name: Jalil Luis ?Procedure Date: 03/06/2020 12:40 PM Date of : 1970 ?Attending MD: Elkin Rosenbaum MD Age: 49 ? Room: Bronch Suite ? __ _ Providers: ?Elkin Rosenbaum MD, Krupa Raines MD (Fellow), Jorge Luis Saldaña ?Fatoumata MCGARRY (Fellow), Annabella Villalta MD: ? Procedure: ?Bronchoscopy Indications: ?Diffuse lung [...] 12:40 PM Number of Addenda: 0 ? [facility] ? [address] 03/06/2020 12:4 0 PM CDT Elkin Rosenbaum MD RESPIRATORY THERAPY ORDERABLES Performing Organization Address [facility] Co de Phone Number [facility] * (ABNORMAL) PHOSPHORUS BLOOD (03/05/2020 11:53 PM CDT) Phosphorus 2.0(L) 2.3 - 4.7 mg/dL 03/06/2020 12:28 AM CDT [facility] Blood BLOOD SPECIMEN / Unknown Lab Venipuncture / Unknown 03/05/2020 11:53 PM CDT 03/06/2020 12:04 AM CDT Tiffanie Nguyen TRANSCRIBING OPERATOR HEAD-SEWING DEMONSTRATOR LAB - CHEMISTRY ORDERABLES Performing Organization Address [facility] Co de Phone Number [address] [phone], [facility] [phone] * MAGNESIUM BLOOD (03/05/2020 11:53 PM CDT) Pathologist [facility] Magnesium 1.9 1.6 - 2.6 mg/dL 03/06/2020 12:28 AM [facility] Blood BLOOD SPECIMEN / Unknown Lab Venipuncture / Unknown 03/05/2020 11:53 PM CDT 03/06/2020 12:04 AM CDT Tiffanie Nguyen TRANSCRIBING OPERATOR HEAD-SEWING DEMONSTRATOR LAB - CHEMISTRY ORDERABLES [address] [phone] [phone] * (ABNORMAL) COMPREHENSIVE METABOLIC PANEL (03/05/2020 11:53 PM CDT) Pathologist [facility] [place] BUN 15 7 - 26 mg/dL 03/06/2020 12:28 AM [facility] Creatinine 0.9 0.6 - 1.2 mg/dL 03/06/2020 12:28 AM [facility] Sodium 138 136 - 145 mmol/L 03/06/2020 12:28 AM [facility] Potassium 3.8 3.5 - 4.5 mmol/L 03/06/2020 12:28 AM [facility] Chloride 104 98 - 107 mmol/L 03/06/2020 12:28 AM [facility] CO2 22 22 - 29 mmol/L 03/06/2020 12:28 AM [facility] Glucose 138(H) 70 - 115 mg/dL 03/06/2020 12:28 AM [facility] Calcium 8.1(L) 8.4 - 10.2 mg/dL 03/06/2020 12:28 AM [facility] Protein Total 5.2(L) 6.0 - 8.3 g/dL 03/06/2020 12:28 AM [facility] Albumin 1.9(L) 3.4 - 5.0 g/dL 03/06/2020 12:28 AM [facility] Bilirubin Total 0.3 0.2 - 1.2 mg/dL 03/06/2020 12:28 AM [facility] Alkaline Phosphatase 81 40 - 150 Units/L 03/06/2020 12:28 AM [facility] ALT 93(H) 0 - 55 Units/L 03/06/2020 12:28 AM [facility] AST 47(H) 5 - 34 Units/L 03/06/2020 12:28 AM [facility] Anion Gap 16 8 - 18 03/06/2020 12:28 AM [facility] BUN/Creatinine Ratio 17 7 - 23 03/06/2020 12:28 AM [facility] Osmolality Calculated 289 270 - 300 mOsm/kg 03/06/2020 12:28 AM [facility] Albumin/Globulin Ratio 0.6(L) 1.1 - 2.3 03/06/2020 12:28 AM [facility] eGFR >60 >60 mL/min/1.7 3 m2 03/06/2020 12:28 AM [facility] Blood BLOOD SPECIMEN / Unknown Lab Venipuncture / Unknown 03/05/2020 11:53 PM CDT 03/06/2020 12:04 AM T Tiffanie Nguyen TRANSCRIBING OPERATOR HEAD-SEWING DEMONSTRATOR LAB - CHEMISTRY ORDERABLES [address] [phone] [phone] * (ABNORMAL) CBC W AUTO DIFFERENTIAL (03/05/2020 11:53 PM CDT) WBC 16.7(H) 3.5 - 10.5 10? 3 /uL 03/06/2020 12:06 AM [facility] Comment:The WBC count is cor rected by the instrument for nRBC's RBC 3.39(L) 4.30 - 5.70 10? 6 /uL 03/06/2020 12:06 AM [facility] Hemoglobin 9.8(L) 13.5 - 17.5 g/dL 03/06/2020 12:06 AM [facility] Hematocrit 28.4(L) 39.0 - 50.0 % 03/06/2020 12:06 AM [facility] MCV 83.8 81.0 - 97.0 fL 03/06/2020 12:06 AM [facility] MCH 28.9 28.0 - 34.0 pg 03/06/2020 12:06 AM [facility] MCHC 34.5 32.0 - 36.0 g/dL 03/06/2020 12:06 AM [facility] Platelet Count 266 150 - 400 10? 3 /uL 03/06/2020 12:06 AM [facility] RDW-SD 48.8 36.0 - 50.0 fL 03/06/2020 12:06 AM [facility] RDW-CV 16.2(H) 11.2 - 14.8 % 03/06/2020 12:06 AM [facility] MPV 11.6 9.3 - 12.8 fL 03/06/2020 12:06 AM [facility] nRBC Absolute 0.20(H) 0 10? 3 /uL 03/06/2020 12:06 AM [facility] nRBC Auto 1.2(H) 0 /100 WBC 03/06/2020 12:06 AM [facility] Neutrophils % 92.1(H) 35.0 - 70.0 % 03/06/2020 12:06 AM [facility] Lymphocytes % 3.7(L) 19.7 - 55.1 % 03/06/2020 12:06 AM [facility] Monocytes % 3.2 3.0 - 15.0 % 03/06/2020 12:06 AM [facility] Eosinophils % 0.0 0.0 - 6.0 % 03/06/2020 12:06 AM [facility] Basophil % 0.1 0.0 - 1.5 % 03/06/2020 12:06 AM [facility] Neutrophils Absolute 15.4(H) 1.6 - 7.0 10? 3 /uL 03/06/2020 12:06 AM [facility] Lymphocyte Absolute 0.6(L) 0.8 - 2.9 10? 3 /uL 03/06/2020 12:06 AM [facility] Monocytes Absolute 0.54 0.14 - 0.66 10? 3 /uL 03/06/2020 12:06 AM [facility] Eosinophils Absolute 0.00 0.00 - 0.45 10? 3 /uL 03/06/2020 12:06 AM CDT [facility] Basophils Absolute 0.02 0.00 - 0.06 10? 3 /uL 03/06/2020 12:06 AM CDT [facility] Immature Granulocytes % 0.9 0.0 - 1.0 % 03/06/2020 12:06 AM CDT [facility] Blood BLOOD SPECIMEN / Unknown Lab Venipuncture / Unknown 03/05/2020 11:53 PM CDT 03/06/2020 12:04 AM CDT Tiffanie Nguyen TRANSCRIBING OPERATOR [facility] LAB - HEMATOLOG Y ORDERABLES [address], [facility] [phone] * VANCOMYCIN LEVEL TROUGH (03/05/2020 5:33 PM CDT) Vancomycin Trough 19.6 10.0 - 20.0 mcg/mL 03/05/2020 7:02 PM CDT [facility] Blood BLOOD SPECIMEN / Unknown Lab Venipuncture / Unknown 03/05/2020 5:33 PM CDT 03/05/2020 6:29 PM CDT Alida Joanna TRANSCRIBING OPERATOR [facility] LAB - CHEMISTRY ORDERABLES Performing Organization Address City/[facility]/ZIP Co de Phone Number [address] [address], [facility] [phone] * XR CHEST 1VW PORTABLE (03/05/2020 1:44 PM CDT) Anatomical Region Laterality Modality Chest Radiographic Chayito ging 03/05/2020 4:06 PM CDT Impressions 03/06/2020 8:31 AM CDT FINDINGS/IMPRESSION: Increase in diffuse patchy airspace opacities in bilateral lungs concerning for multifocal pneumonia. Small left pleural effusion is suggested. There is no pneumothorax. The cardiomediastinal silhouette is normal. Dictated by Mary Ellen Ty MD (Resident). I, Dr. BOGDAN RUBIO have personally reviewed and interpreted this examination/study. This report was electronically signed by BOGDAN RUBIO ??on 03/06/2020 8:31 AM . 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 FINDINGS/IMPRESSION: Increase in diffuse patchy airspace opacities in bilateral lungs concerning for multifocal pneumonia. Small left pleural effusion is suggested. There is no pneumothorax. The cardiomediastinal silhouette is normal. Dictated by Mary Ellen Ty MD (Resident). I, Dr. BOGDAN RUBIO have personally reviewed and interpreted this examination/study. This report was electronically signed by BOGDAN RUBIO on 03/06/2020 8:31 AM. Alida Marshall APRN-SEWING DEMONSTRATOR DIAGNOSTIC IMAG ING ORDERABLES * PHOSPHORUS BLOOD (03/04/2020 11:27 PM CDT) Phosphorus 2.4 2.3 - 4.7 mg/dL 03/04/2020 11:52 PM CDT [facility] Blood BLOOD SPECIMEN / Unknown Lab Venipuncture / Unknown 03/04/2020 11:27 PM CDT 03/04/2020 11:32 PM CDT Tiffanie Nguyen TRANSCRIBING OPERATOR HEAD-SEWING DEMONSTRATOR LAB - CHEMISTRY ORDERABLES [address] [address], [facility] [phone] * MAGNESIUM BLOOD (03/04/2020 11:27 PM CDT) Magnesium 2.3 1.6 - 2.6 mg/dL 03/04/2020 11:52 PM CDT [facility] Blood BLOOD SPECIMEN / Unknown Lab Venipuncture / Unknown 03/04/2020 11:27 PM CDT 03/04/2020 11:32 PM CDT Tiffanie Nguyen TRANSCRIBING OPERATOR HEAD-SEWING DEMONSTRATOR LAB - CHEMISTRY ORDERABLES [facility] [address] [place] [phone], [facility] [phone] * (ABNORMAL) COMPREHENSIVE METABOLIC PANEL (03/04/2020 11:27 PM CDT) BUN 13 7 - 26 mg/dL 03/04/2020 11:52 PM [facility] Creatinine 0.8 0.6 - 1.2 mg/dL 03/04/2020 11:52 PM [facility] Sodium 139 136 - 145 mmol/L 03/04/2020 11:52 PM [facility] Potassium 4.1 3.5 - 4.5 mmol/L 03/04/2020 11:52 PM [facility] Chloride 106 98 - 107 mmol/L 03/04/2020 11:52 PM [facility] CO2 21(L) 22 - 29 mmol/L 03/04/2020 11:52 PM [facility] Glucose 129(H) 70 - 115 mg/dL 03/04/2020 11:52 PM [facility] Calcium 8.4 8.4 - 10.2 mg/dL 03/04/2020 11:52 PM [facility] Protein Total 5.5(L) 6.0 - 8.3 g/dL 03/04/2020 11:52 PM [facility] Albumin 2.1(L) 3.4 - 5.0 g/dL 03/04/2020 11:52 PM [facility] Bilirubin Total 0.3 0.2 - 1.2 mg/dL 03/04/2020 11:52 PM [facility] Alkaline Phosphatase 90 40 - 150 Units/L 03/04/2020 11:52 PM [facility] ALT 70(H) 0 - 55 Units/L 03/04/2020 11:52 PM [facility] AST 39(H) 5 - 34 Units/L 03/04/2020 11:52 PM [facility] Anion Gap 16 8 - 18 03/04/2020 11:52 PM [facility] BUN/Creatinine Ratio 16 7 - 23 03/04/2020 11:52 PM [facility] Osmolality Calculated 290 270 - 300 mOsm/kg 03/04/2020 11:52 PM [facility] Albumin/Globulin Ratio 0.6(L) 1.1 - 2.3 03/04/2020 11:52 PM [facility] eGFR >60 >60 mL/min/1.7 3 m2 03/04/2020 11:52 PM [facility] Blood BLOOD SPECIMEN / Unknown Lab Venipuncture / Unknown 03/04/2020 11:27 PM CDT 03/04/2020 11:32 PM [facility] Tiffanie Seymour Patrick TRANSCRIBING OPERATOR HEAD-SEWING DEMONSTRATOR LAB - CHEMISTRY ORDERABLES [address] [address] [phone] * (ABNORMAL) CBC W AUTO DIFFERENTIAL (03/04/2020 11:27 PM T) WBC 13.3(H) 3.5 - 10.5 10? 3 /uL 03/04/2020 11:38 PM [facility] Comment:The WBC count is cor rected by the instrument for nRBC's RBC 3.70(L) 4.30 - 5.70 10? 6 /uL 03/04/2020 11:38 PM [facility] Hemoglobin 10.8(L) 13.5 - 17.5 g/dL 03/04/2020 11:38 PM [facility] Hematocrit 30.7(L) 39.0 - 50.0 % 03/04/2020 11:38 PM [facility] MCV 83.0 81.0 - 97.0 fL 03/04/2020 11:38 PM [facility] MCH 29.2 28.0 - 34.0 pg 03/04/2020 11:38 PM [facility] MCHC 35.2 32.0 - 36.0 g/dL 03/04/2020 11:38 PM [facility] Platelet Count 252 150 - 400 10? 3 /uL 03/04/2020 11:38 PM [facility] RDW-SD 47.4 36.0 - 50.0 fL 03/04/2020 11:38 PM [facility] RDW-CV 16.0(H) 11.2 - 14.8 % 03/04/2020 11:38 PM [facility] MPV 10.7 9.3 - 12.8 fL 03/04/2020 11:38 PM [facility] nRBC Absolute 0.17(H) 0 10? 3 /uL 03/04/2020 11:38 PM [facility] nRBC Auto 1.3(H) 0 /100 WBC 03/04/2020 11:38 PM [facility] Comment:Checked with the pre vious result. Neutrophils % 89.4(H) 35.0 - 70.0 % 03/04/2020 11:38 PM [facility] Lymphocytes % 4.6(L) 19.7 - 55.1 % 03/04/2020 11:38 PM [facility] Monocytes % 4.8 3.0 - 15.0 % 03/04/2020 11:38 PM [facility] Eosinophils % 0.0 0.0 - 6.0 % 03/04/2020 11:38 PM [facility] Basophil % 0.2 0.0 - 1.5 % 03/04/2020 11:38 PM [facility] Neutrophils Absolute 11.9(H) 1.6 - 7.0 10? 3 /uL 03/04/2020 11:38 PM [facility] Lymphocyte Absolute 0.6(L) 0.8 - 2.9 10? 3 /uL 03/04/2020 11:38 PM [facility] Monocytes Absolute 0.64 0.14 - 0.66 10? 3 /uL 03/04/2020 11:38 PM [facility] Eosinophils Absolute 0.00 0.00 - 0.45 10? 3 /uL 03/04/2020 11:38 PM [facility] Basophils Absolute 0.02 0.00 - 0.06 10? 3 /uL 03/04/2020 11:38 PM CDT [facility] Immature Granulocytes % 1.0 0.0 - 1.0 % 03/04/2020 11:38 PM CDT [facility] Blood BLOOD SPECIMEN / Unknown Lab Venipuncture / Unknown 03/04/2020 11:27 PM CDT 03/04/2020 11:32 PM CDT Tiffanie Nguyen TRANSCRIBING OPERATOR HEAD-SEWING DEMONSTRATOR LAB - HEMATOLOG Y ORDERABLES [address] [address] [phone] * SARS-COV-2 (COVID-19) IN HOUSE (03/04/2020 10:45 AM CDT) COVID-19 PCR Not detected Not detected, Invalid 03/05/2020 6:23 AM CDT [facility] MICROBI[facility] Microbiology SPECIMEN FROM NASOPHARYNGEAL STRUCTURE / Unknown Collection / Unknown 03/04/2020 10:45 AM CDT 03/04/2020 10:57 AM CDT Narrative [facility] MICROBIOLOG[facility] - 03/05/2020 6:23 AM CDT This Real Time RT-PCR assay was developed and its performance characteristics determined by [facility]. This test has been authorized by the Food and Drug administration (FDA)under an Emergency Use Authorization (EUA). This test has been validated [...] the authorization is terminated or revoked sooner. Rafaela Sood APRN-[facility] - MICROBIO LOGY ORDERABLES [facility] MICRO[facility] [address] [place] [address], [facility] [phone] * LACTIC ACID BLOOD (03/04/2020 5:51 AM CDT) Lactic Acid-Stat 1.0 0.5 - 2.2 mmol/L 03/04/2020 6:17 AM CDT [facility] Blood BLOOD SPECIMEN / Unknown Lab Venipuncture / Unknown 03/04/2020 5:51 AM CDT 03/04/2020 5:59 AM CDT Keli Case [facility] - CHEMISTRY O RDERABLES Performing Organization Address City/[facility]/ZIP Co de Phone Number [address] [address], [facility] [phone] * PHOSPHORUS BLOOD (03/03/2020 11:45 PM CDT) Phosphorus 3.3 2.3 - 4.7 mg/dL 03/04/2020 12:32 AM CDT [facility] Blood BLOOD SPECIMEN / Unknown Lab Venipuncture / Unknown 03/03/2020 11:45 PM CDT 03/04/2020 12:04 AM CDT Tiffanie Nguyen [facility] - CHEMISTRY ORDERABLES Performing Organization Address City/[facility]/ZIP Co de Phone Number [address] [address], [facility] [phone] * MAGNESIUM BLOOD (03/03/2020 11:45 PM CDT) Magnesium 1.7 1.6 - 2.6 mg/dL 03/04/2020 12:32 AM CDT [facility] Blood BLOOD SPECIMEN / Unknown Lab Venipuncture / Unknown 03/03/2020 11:45 PM CDT 03/04/2020 12:04 AM CDT Tiffanie Nguyen [facility] LAB - CHEMISTRY ORDERABLES [facility] [address] [place] [address], [facility] [phone] * (ABNORMAL) COMPREHENSIVE METABOLIC PANEL (03/03/2020 11:45 PM [facility]) BUN 14 7 - 26 mg/dL 03/04/2020 12:32 AM [facility] Creatinine 1.1 0.6 - 1.2 mg/dL 03/04/2020 12:32 AM [facility] Sodium 136 136 - 145 mmol/L 03/04/2020 12:32 AM [facility] Potassium 3.7 3.5 - 4.5 mmol/L 03/04/2020 12:32 AM [facility] Chloride 103 98 - 107 mmol/L 03/04/2020 12:32 AM [facility] CO2 19(L) 22 - 29 mmol/L 03/04/2020 12:32 AM [facility] Glucose 99 70 - 115 mg/dL 03/04/2020 12:32 AM [facility] Calcium 7.6(L) 8.4 - 10.2 mg/dL 03/04/2020 12:32 AM [facility] Protein Total 5.0(L) 6.0 - 8.3 g/dL 03/04/2020 12:32 AM [facility] Albumin 2.0(L) 3.4 - 5.0 g/dL 03/04/2020 12:32 AM [facility] Bilirubin Total 0.4 0.2 - 1.2 mg/dL 03/04/2020 12:32 AM [facility] Alkaline Phosphatase 83 40 - 150 Units/L 03/04/2020 12:32 AM [facility] ALT 65(H) 0 - 55 Units/L 03/04/2020 12:32 AM [facility] AST 24 5 - 34 Units/L 03/04/2020 12:32 AM [facility] Anion Gap 18 8 - 18 03/04/2020 12:32 AM [facility] BUN/Creatinine Ratio 13 7 - 23 03/04/2020 12:32 AM [facility] Osmolality Calculated 283 270 - 300 mOsm/kg 03/04/2020 12:32 AM [facility] Albumin/Globulin Ratio 0.7(L) 1.1 - 2.3 03/04/2020 12:32 AM [facility] eGFR >60 >60 mL/min/1.7 3 m2 03/04/2020 12:32 AM [facility] Blood BLOOD SPECIMEN / Unknown Lab Venipuncture / Unknown 03/03/2020 11:45 PM CDT 03/04/2020 12:04 AM CDT Tiffanie Seymour Patrick TRANSCRIBING OPERATOR [facility] LAB - CHEMISTRY ORDERABLES [address] [address], [facility] [phone] * (ABNORMAL) CBC W AUTO DIFFERENTIAL (03/03/2020 11:45 PM T) WBC 16.4(H) 3.5 - 10.5 10? 3 /uL 03/04/2020 12:48 AM [facility] Comment:The WBC count is cor rected by the instrument for nRBC's RBC 3.83(L) 4.30 - 5.70 10? 6 /uL 03/04/2020 12:48 AM [facility] Hemoglobin 11.2(L) 13.5 - 17.5 g/dL 03/04/2020 12:48 AM [facility] Hematocrit 32.1(L) 39.0 - 50.0 % 03/04/2020 12:48 AM [facility] MCV 83.8 81.0 - 97.0 fL 03/04/2020 12:48 AM [facility] MCH 29.2 28.0 - 34.0 pg 03/04/2020 12:48 AM [facility] MCHC 34.9 32.0 - 36.0 g/dL 03/04/2020 12:48 AM [facility] Platelet Count 291 150 - 400 10? 3 /uL 03/04/2020 12:48 AM [facility] RDW-SD 48.1 36.0 - 50.0 fL 03/04/2020 12:48 AM [facility] RDW-CV 16.4(H) 11.2 - 14.8 % 03/04/2020 12:48 AM [facility] MPV 11.3 9.3 - 12.8 fL 03/04/2020 12:48 AM [facility] nRBC Absolute 0.76(H) 0 10? 3 /uL 03/04/2020 12:48 AM [facility] nRBC Auto 4.6(H) 0 /100 WBC 03/04/2020 12:48 AM [facility] Comment:Confirmed by repeat analysis. Neutrophils % 84.0(H) 35.0 - 70.0 % 03/04/2020 12:48 AM [facility] Lymphocytes % 6.7(L) 19.7 - 55.1 % 03/04/2020 12:48 AM [facility] Monocytes % 6.0 3.0 - 15.0 % 03/04/2020 12:48 AM [facility] Eosinophils % 0.1 0.0 - 6.0 % 03/04/2020 12:48 AM [facility] Basophil % 0.2 0.0 - 1.5 % 03/04/2020 12:48 AM [facility] Neutrophils Absolute 13.8(H) 1.6 - 7.0 10? 3 /uL 03/04/2020 12:48 AM [facility] Lymphocyte Absolute 1.1 0.8 - 2.9 10? 3 /uL 03/04/2020 12:48 AM [facility] Monocytes Absolute 0.99(H) 0.14 - 0.66 10? 3 /uL 03/04/2020 12:48 AM [facility] Eosinophils Absolute 0.02 0.00 - 0.45 10? 3 /uL 03/04/2020 12:48 AM [facility] Basophils Absolute 0.04 0.00 - 0.06 10? 3 /uL 03/04/2020 12:48 AM [facility] Immature Granulocytes % 3.0(H) 0.0 - 1.0 % 03/04/2020 12:48 AM [facility] Blood BLOOD SPECIMEN / Unknown Lab Venipuncture / Unknown 03/03/2020 11:45 PM CDT 03/04/2020 12:04 AM CDT Tiffanie Nguyen TRANSCRIBING OPERATOR [facility] LAB - HEMATOLOG Y ORDERABLES [address] [address], [facility] [phone] * CULTURE BLOOD (03/03/2020 6:08 PM CDT) Culture No growth day 5 SPENCER 03/08/2020 11:00 PM CDT [facility]CRO[facility] Blood PERIPHERAL BLOOD / Unknown Lab Venipuncture / Unknown 03/03/2020 6:08 PM CDT 03/03/2020 6:35 PM CDT Rafaela Barrie TRANSCRIBING OPERATOR [facility] LAB - MICROBIO LOGY ORDERABLES Performing Organization Address [facility] Co de Phone Number [facility] [address] [place] [address], [facility] [phone] * LEGIONELLA ANTIGEN URINE (03/03/2020 6:04 PM CDT) Legionella Antigen Urine Negative Negative 03/04/2020 8:59 AM CDT [facility]CRO[facility] Urine URINE / Unknown Collection / Unknown 03/03/2020 6:04 PM CDT 03/03/2020 6:36 PM CDT Narrative [facility] - 03/04/2020 8:59 AM CDT This assay detects Legionella pneumophila serogroup one (1) antigen. A negative test result does not rule out the possibility of Legionella infection due to other serogroups or species of Legionella. A positive result may indicate a recent or remote infection with serogroup 1. Joce Damian DO LAB - MICROBIOLOGY ORDERABLES Performing Organization Address City/[facility]/ZIP Co de Phone Number [facility] MICROBIOLOGY [address] [place] [address], [facility] [phone] * CULTURE BLOOD (03/03/2020 5:59 PM CDT) Culture No growth day 5 SPENCER 03/08/2020 11:00 PM CDT [facility] Blood PERIPHERAL BLOOD / Unknown Lab Venipuncture / Unknown 03/03/2020 5:59 PM CDT 03/03/2020 6:35 PM CDT Rafaela Sood TRANSCRIBING OPERATOR [facility] LAB - MICROBIO LOGY ORDERABLES [facility] [address] [place], [place] [address], [facility] [phone] * B-TYPE NATRIURETIC PEPTIDE (03/03/2020 5:59 PM CDT) BNP 25 See Comment pg/mL 03/03/2020 7:08 PM CDT [facility] Comment: * Disclaimer: BNP results may be falsely high by 20% due * * to shift observed secondary to new reagent lot. Lab ?* * working with reinforcing iron and rebar workers to resolve. ?* * ?* * Please contact [facility] with any questions ??* A decision threshold of 100 pg/mL has [...] 98.3 ? Blood BLOOD SPECIMEN / Unknown Lab Venipuncture / Unknown 03/03/2020 5:59 PM CDT 03/03/2020 6:35 PM CDT Rafaela Sood TRANSCRIBING OPERATOR [facility] LAB - CHEMISTR Y ORDERABLES [address] [address], [facility] [phone] * VANCOMYCIN LEVEL TROUGH (03/03/2020 5:59 PM CDT) Vancomycin Trough 17.2 10.0 - 20.0 mcg/mL 03/03/2020 7:09 PM CDT [facility] Blood BLOOD SPECIMEN / Unknown Lab Venipuncture / Unknown 03/03/2020 5:59 PM CDT 03/03/2020 6:35 PM CDT Rafaela Sood APRN-SEWING DEMONSTRATOR LAB - CHEMISTR Y ORDERABLES [address] [address], [facility] [phone] * ECHO LIMITED OR FOLLOWUP (03/03/2020 5:49 PM CDT) Anatomical Region Laterality Modality Chest Echo 03/03/2020 5:32 PM CDT Narrative Procedure Note Tiffanie Ruiz MD - 03/06/2020 Rafaela Sood APRN-SEWING DEMONSTRATOR ECHOCARDIOGRAP HY RADIANT * VAS BILATERAL VENOUS DUPLEX UE (03/03/2020 3:39 PM CDT) Anatomical Region Laterality Modality Upper Extremity Intravascular Ul trasound 03/03/2020 3:21 PM CDT Narrative Procedure Note Omar Carreon MD - 03/06/2020 Rafaela Sood APRN-SEWING DEMONSTRATOR VASCULAR LAB O RDERABLES * VAS BILATERAL VENOUS DUPLEX LE (03/03/2020 3:38 PM CDT) Anatomical Region Laterality Modality Lower Extremity Intravascular Ul trasound 03/03/2020 3:09 PM CDT Narrative Procedure Note Omar Carreon MD - 03/06/2020 Rafaela Sood APRN-SEWING DEMONSTRATOR VASCULAR LAB O RDERABLES * CHROMOSOME ANALYSIS BONE MARROW PANEL (03/03/2020 1:45 PM CDT) Chromosome Analysis Bone Marrow See Note Normal 03/14/2020 1:20 PM CDT [employer] [facility] ([facility]) Comment: Specimen received Specimen type: ? [...] this sample and will be reported under [facility] accession #[id number]. This result has been reviewed and approved by Kraig Martinez MD, PhD, FACMG A portion of this analysis was performed at the following location(s): [facility], [address] [place] [address], [address], [place], [address], Manager Speech: Vicki Montesinos, PhD INTERPRETIVE INFORMATION: Chromosome Analysis, Bone Marrow Test developed and characteristics determined by [facility]. See Compliance Statement B: [employer]/CS EER Chromosome Analysis Bone Marrow See Note 03/14/2020 1:20 PM CDT [employer] ([facility]) Comment: Access [employer] Enhanced Report using either link below: -Direct access: [email or web address] -Enter Username, Password: [email or web address] Username: [email or web address] Password: [email or web address] Performed By: [facility] [address] [place] [address] Manager Speech: Toribio Elizondo MD, MS Bone marrow BONE MARROW SPECIMEN / Unknown 03/03/2020 1:45 PM CDT 03/03/2020 1:56 PM CDT Keli Evie TRANSCRIBING OPERATOR [facility] LAB - PATHOLOGY/C YTOLOGY ORDERABLES [employer] [facility]) [address] [place] [address], [facility] * FISH LYMPHOMA (AGGRESSIVE) PANEL (03/03/2020 1:45 PM CDT) FISH Lymphoma (Aggressive) Panel See Note Normal 03/16/2020 9:35 AM CDT [employer] ([facility]) Comment: Specimen Received Specimen Type: ?Bone marrow Reason for Referral: ??Aggressive lymphoma panel Test Performed: ? FISH ALYMPH NORMAL FISH RESULTS 3q27 (BCL6): rearrangement not detected 8q24 (MYC): rearrangement not detected t(14;18)(q32;q21) (IGH;BCL2): rearrangement not detected DIAGNOSTIC IMPRESSION: Fluorescence in situ hybridization (FISH) analysis was performed with the BCL6, MYC, IGH, and BCL2 probes (Curate.Us). 200 interphase cells were scored for each probe combination. This analysis showed normal results with no evidence of t(14;18)(q32;q21) (IGH/BCL2 translocation) or other rearrangements involving BCL6 or MYC. ISCN: nuc sergei(BCL6,MYC,IGH,BCL2)x2[200] This result has been reviewed and approved by Jin Meza, PhD, [facility] A portion of this analysis was performed at the following location(s): [facility], [address] [facility], [place] [address], Manager Speech: Jin Meza, PhD INTERPRETIVE INFORMATION: Lymphoma (Aggressive) Panel by FISH This panel is for the identification of double hit lymphoma and triple hit lymphoma, both of which show morphologic features intermediate between diffuse large B-Cell lymphoma and Burkitt Lymphoma. Both are agressive lymphomas and ??are characterized by a poor survival rate. Test developed and characteristics determined by [facility]. See Compliance Statement A: [employer]/CS EER Lymphoma (Aggressive) Pnl FISH See Note 03/16/2020 9:35 AM CDT [employer] ([facility]) Comment: Access [facility] Report using either link below: -Direct access: [email or web address] -Enter Username, Password: [email or web address] Username: [email or web address] Password: [email or web address] Performed By: [facility] [address] [place] [address] Manager Speech: Toribio Elizondo MD, MS Other BONE MARROW SPECIMEN / Unknown Collection / Unknown 03/03/2020 1:45 PM CDT 03/03/2020 1:56 PM CDT Keli Esi TRANSCRIBING OPERATOR [facility] LAB - PATHOLOGY/C YTOLOGY ORDERABLES [employer] ([facility]) [address] [place] [address], [facility] * FLOW CYTOMETRY BONE MARROW (03/03/2020 1:45 PM CDT) Case Report Flow Cytometry ?Case: [id number] ? Authorizing Provider: ??Evie, Keli, TRANSCRIBING OPERATOR HEAD-[facility]ING DEMONSTRATOR ?? Collected: ? 03/03/2020 01:45 PM ? Ordering Location: ? [facility] ?Received: ?03/03/2020 01:56 PM ? Pathologist: ? Margaret Hooker Mai, DO ? Specimen: ?Bone Marrow ? 03/03/2020 6:41 PM CDT [facility] Final Diagnosis Bone marrow, flow cytometric immunophenotypic analysis: - No evidence of non-Hodgkin lymphoma or high-grade myeloid neoplasm. - See interpretation. 03/03/2020 6:41 PM [facility] Flow Cytometry Interpretation The [...] the flow cytometry specimen is reviewed for software quality specialist purposes. The bone marrow aspirate specimen shows no evidence of involvement by non-Hodgkin lymphoma or a high-grade myeloid neoplasm. Correlation with clinical findings, the concurrent bone marrow core biopsy ([id number]), and relevant cytogenetic/molecu lar studies is required. VH/MM 03/03/2020 6:41 PM CDT [facility] Flow Cytometry Results Differential Result Comment Flow Cell Count /uL 37,500 Total Viability % 96.0 Lymphocytes % 2 Dim CD45 Region % 1 Monocytes % 3 Granulocytes % 94 03/03/2020 6:41 PM CDT [facility] Reason for test Diffuse large B-cell lymphoma, unspecified body region 03/03/2020 6:41 PM CDT [facility] Client Specimen ID # [id number] 03/03/2020 6:41 PM CDT [facility] Number of markers 10 were performed. A-1 Flow CD3 A-3 Flow CD10 A-5 Flow CD20 A-6 Flow CD23 A-2 Flow CD5 A-4 Flow CD19 A-7 Flow CD34 A-8 Flow CD45 A-9 Frankewing+CD19+ A-10 Lambda+CD19+ 03/03/2020 6:41 PM CDT [facility] Disclaimer Test performed at [facility], [address] [place] [address], [facility]. *The established laboratory minimum viability is 70%. [...] complexity clinical testing. 03/03/2020 6:41 PM CDT [facility] Embedded Images 0 6:41 PM CDT [facility] Pathology/Cytolo gy BONE MARROW SPECIMEN / Unknown Collection / Unknown 03/03/2020 1:45 PM CDT 03/03/2020 1:56 PM CDT Keli Evie TRANSCRIBING OPERATOR [facility] LAB - PATHOLOGY/C YTOLOGY ORDERABLES [facility] [address] [place] [address]. [address] [phone] * BONE MARROW BIOPSY (STL) (03/03/2020 1:45 PM CDT) Case Report Bone Marrow Patholog y Report ?Case: [id number] ? Authorizing Provider: ??Evie, Keli, TRANSCRIBING OPERATOR HEAD-SEWING DEMONSTRATOR ?? Collected: ? 03/03/2020 01:45 PM ? Ordering Location: ? [facility] ?Received: ?03/03/2020 01:56 PM ? Pathologist: ? Hathuc, Margaret Melissa, DO ? Specimens: ?? A) - Bone Marrow Clot ? B) - Bone Marrow Core ? C) - Bone Marrow Aspirate ? D) - Blood Peripheral ? 03/14/2020 8:35 AM [facility] Final Diagnosis Bone marrow, aspirate, clot section, and core biopsy: - Normocellular marrow with maturing trilineage hematopoiesis. - No morphologic evidence of residual/recurrent non-Hodgkin lymphoma. - See description. Peripheral blood smear: - Normal white blood cell count with absolute neutrophilia. - Normochromic normocytic anemia. - See description. 03/14/2020 8:35 AM [facility] Comment Overall, the bone marrow specimen is normocellular for age with maturing trilineage hematopoiesis and no morphologic evidence of lymphoma or a high-grade myeloid neoplasm. Concurrent bone marrow flow cytometry ([id number]) demonstrates no evidence of non-Hodgkin lymphoma or a high-grade myeloid neoplasm. Correlation with clinical findings and relevant cytogenetic/molecular testing is required. VH/TF 03/14/2020 8:35 AM [facility] Peripheral Smear Description Manual Differential Count (100 cells): 87% neutrophils, 6% lymphocytes, 7% monocytes. 14 nRBCs / 100 WBCs. Leukocyte number: increased. Granulocyte morphology: absolute neutrophilia. Lymphocyte morphology: normal. Erythrocyte number: decreased. Erythrocyte morphology: normochromic normocytic. Anisopoikilocytosis: mild. Polychromasia: mild. Platelet number: normal, with some platelet clumping. Platelet morphology: normal. 03/14/2020 8:35 AM [facility] Bone Marrow Aspirate Differential [...] no ringed sideroblasts seen. 03/14/2020 8:35 AM [facility] Bone Marrow Core Biopsy [...] similar to core biopsy. 03/14/2020 8:35 AM [facility] Flow Cytometry Summary Concurrent flow cytometric analysis ([id number]) Shows no evidence of non-Hodgkin's lymphoma or high-grade myeloid neoplasm. 03/14/2020 8:35 AM [facility] Clinical History The patient is a 49-year-old man who is day 137 status post autologous peripheral blood stem cell transplant. 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 He underwent bone marrow biospy as part of day 100 testing which was delayed until now due to positive COVID results. Concurrent flow cytometry ([id number]) is negative for non-Hodgkin lymphoma or high-grade myeloid neoplasm. 03/14/2020 8:35 AM [facility] Gross Description The requisition and specimen(s) are labeled with the patient's name, Jalil Luis. Received fresh, specimen A, ASP , is a scant amount of fluid-like blood. Specimen is wrapped in tissue paper and entirely submitted in cassette A1. Specimen B, Core , is a brown-guerra bony tissue core measuring 1.4 x 0.1 x 0.1 cm. Specimen is submitted entirely in cassette B1 following decalcification in 1 hour of rapidcal immuno. CHAZ 03/14/2020 8:35 AM [facility] Disclaimer The performance characteristics of all immunohistochemical and indirect immunofluorescence stains (if any) cited in this report were determined by the Histopathology Laboratory of [facility]. Some of these tests were developed [...] the attending (teaching) pathologist. 03/14/2020 8:35 AM CDT [facility] Addendum 1 Properly controlled special stains were performed on the bone marrow core. GMS staining highlights debris and weak blush staining of some erythrocytes but no distinct fungal elements. AFB staining shows no acid-fast organisms. The diagnosis is unchanged. 03/14/2020 8:35 AM CDT [facility] Addendum electronically signed by Margaret Hooker Mai, DO on 03/14/2020 at 8:35 AM Embedded Images 03/14/2020 8:35 AM CDT [facility] Pathology/Cytology PERIPHERAL BLOOD / Unknown [...] PM CDT 03/03/2020 3:00 PM CDT Keli Case TRANSCRIBING OPERATOR [facility] LAB - PATHOLOGY/C YTOLOGY ORDERABLES [facility] [address] [phone] * (ABNORMAL) FIBRINOGEN ACTIVITY (03/03/2020 12:47 PM CDT) Fibrinogen Clauss 584(H) 200 - 400 mg/dL 03/03/2020 1:18 PM CDT [facility] Blood BLOOD SPECIMEN / Unknown Lab Venipuncture / Unknown 03/03/2020 12:47 PM CDT 03/03/2020 1:06 PM CDT Rafaela Sood APRN-SEWING DEMONSTRATOR LAB - COAGULAT ION ORDERABLES Performing Organization Address [facility]/State/ZIP Co de Phone Number [address] [address], [facility] [phone] * (ABNORMAL) ERYTHROCYTE SEDIMENTATION RATE (03/03/2020 12:47 PM CDT) Erythrocyte Sedimentation Rate Westergren 48(H) 0 - 15 MM/HR 03/03/2020 1:16 PM CDT [facility] Blood BLOOD SPECIMEN / Unknown Lab Venipuncture / Unknown 03/03/2020 12:47 PM CDT 03/03/2020 1:06 PM CDT Rafaela Sood APRN-SEWING DEMONSTRATOR LAB - HEMATOLO GY ORDERABLES Performing Organization Address [facility]/ZIP Co de Phone Number [address] [address], [facility] [phone] * (ABNORMAL) C-REACTIVE PROTEIN (03/03/2020 12:47 PM CDT) C-Reactive Protein 9.1(H) <=0.5 mg/dL 03/03/2020 1:28 PM CDT [facility] Blood BLOOD SPECIMEN / Unknown Lab Venipuncture / Unknown 03/03/2020 12:47 PM CDT 03/03/2020 1:06 PM CDT Rafaela [facility] - CHEMISTR Y ORDERABLES Performing Organization Address City/[facility]/ZIP Co de Phone Number [address] [address], [facility] [phone] * (ABNORMAL) LDH BLOOD (03/03/2020 12:47 PM CDT) LDH Total 468(H) 125 - 243 Units/L 03/03/2020 1:26 PM CDT [facility] Blood BLOOD SPECIMEN / Unknown Lab Venipuncture / Unknown 03/03/2020 12:47 PM CDT 03/03/2020 1:06 PM CDT Rafaela Sood APRN-SEWING DEMONSTRATOR LAB - CHEMISTR Y ORDERABLES Performing Organization Address [facility] Co de Phone Number [address] [address], [facility] [phone] * SARS-COV-2 (COVID-19) ANTIBODY IGG (03/03/2020 12:47 PM CDT) Pathologist [facility] [place] CoV2 IGG Negative 03/03/2020 1:54 PM CDT [facility] Blood BLOOD SPECIMEN / Unknown Lab Venipuncture / Unknown 03/03/2020 12:47 PM CDT 03/03/2020 1:06 PM CDT Narrative [facility] - 03/03/2020 1:54 PM CDT This serologic based test was developed by [employer] and its performance characteristics determined by [facility]. This test has not been [...] due to past or present infection with [id number] coronavirus strains. Rigorous scientific studies have not been completed to determine if detectable IgG to SARS-CoV-2 confers protective immunity. Rafaela Sood APRN-SEWING DEMONSTRATOR LAB - CHEMISTR Y ORDERABLES Performing Organization Address [facility]/ZIP Co de Phone Number [address] [address], [facility] [phone] * (ABNORMAL) D-DIMER (03/03/2020 12:47 PM CDT) [facility] D-Dimer Quantitative 1.20(H) <=0.50 mcg/mL FEU 03/03/2020 1:20 PM CDT [facility] Comment: In the absence [...] Haematol. 145:24-33,2009. Blood BLOOD SPECIMEN / Unknown Lab Venipuncture / Unknown 03/03/2020 12:47 PM CDT 03/03/2020 1:06 PM CDT Rafaela Sood APRN-SEWING DEMONSTRATOR LAB - COAGULAT ION ORDERABLES [address] [address], [facility] [phone] * TROPONIN I (03/03/2020 12:47 PM CDT) Troponin I <0.010 <0.032 ng/mL 03/03/2020 1:36 PM CDT [facility] Blood BLOOD SPECIMEN / Unknown Lab Venipuncture / Unknown 03/03/2020 12:47 PM CDT 03/03/2020 1:06 PM CDT Rafaela Sood TRANSCRIBING OPERATOR [facility] LAB - CHEMISTR Y ORDERABLES Performing Organization Address [facility]/ZIP Co de Phone Number [address] [address], [facility] [phone] * (ABNORMAL) FERRITIN (03/03/2020 12:47 PM CDT) Ferritin 743(H) 22 - 275 ng/mL 03/03/2020 1:51 PM CDT [facility] Blood BLOOD SPECIMEN / Unknown Lab Venipuncture / Unknown 03/03/2020 12:47 PM CDT 03/03/2020 1:06 PM CDT Rafaela Sood TRANSCRIBING OPERATOR [facility] LAB - CHEMISTR Y ORDERABLES Performing Organization Address [facility] Co de Phone Number [address] [address], [facility] [phone] * (ABNORMAL) VANCOMYCIN LEVEL TROUGH (03/03/2020 12:47 PM CDT) Vancomycin Trough 26.4(HH) 10.0 - 20.0 mcg/mL 03/03/2020 2:09 PM CDT [facility] Blood BLOOD SPECIMEN / Unknown Lab Venipuncture / Unknown 03/03/2020 12:47 PM CDT 03/03/2020 1:06 PM CDT Keli Case TRANSCRIBING OPERATOR [facility] LAB - CHEMISTRY O RDERABLES Performing Organization Address [facility] Center/ZIP Co de Phone Number [address] [address], [facility] [phone] * PHOSPHORUS BLOOD (03/03/2020 12:14 AM CDT) Phosphorus 2.4 2.3 - 4.7 mg/dL 03/03/2020 12:55 AM CDT [facility] Blood BLOOD SPECIMEN / Unknown Lab Venipuncture / Unknown 03/03/2020 12:14 AM CDT 03/03/2020 12:27 AM CDT Tiffanie Alvess TRANSCRIBING OPERATOR HEAD-SEWING DEMONSTRATOR LAB - [place] [address], [facility] [phone] * MAGNESIUM BLOOD (03/03/2020 12:14 AM CDT) Magnesium 1.7 1.6 - 2.6 mg/dL 03/03/2020 12:55 AM T [facility] Blood BLOOD SPECIMEN / Unknown Lab Venipuncture / Unknown 03/03/2020 12:14 AM CDT 03/03/2020 12:27 AM CDT Tiffanie Seymour Patrick TRANSCRIBING OPERATOR HEAD-SEWING DEMONSTRATOR LAB - CHEMISTRY ORDERABLES [place] [address], [facility] [phone] * (ABNORMAL) COMPREHENSIVE METABOLIC PANEL (03/03/2020 12:14 AM CDT) BUN 17 7 - 26 mg/dL 03/03/2020 1:15 AM [facility] Creatinine 1.0 0.6 - 1.2 mg/dL 03/03/2020 1:15 AM [facility] Sodium 134(L) 136 - 145 mmol/L 03/03/2020 1:15 AM [facility] Potassium 3.6 3.5 - 4.5 mmol/L 03/03/2020 1:15 AM [facility] Chloride 103 98 - 107 mmol/L 03/03/2020 1:15 AM [facility] CO2 18(L) 22 - 29 mmol/L 03/03/2020 1:15 AM [facility] Glucose 100 70 - 115 mg/dL 03/03/2020 1:15 AM [facility] Calcium 7.7(L) 8.4 - 10.2 mg/dL 03/03/2020 1:15 AM [facility] Protein Total 4.9(L) 6.0 - 8.3 g/dL 03/03/2020 1:15 AM [facility] Albumin 2.2(L) 3.4 - 5.0 g/dL 03/03/2020 1:15 AM [facility] Bilirubin Total 0.3 0.2 - 1.2 mg/dL 03/03/2020 1:15 AM [facility] Alkaline Phosphatase 82 40 - 150 Units/L 03/03/2020 1:15 AM [facility] ALT 90(H) 0 - 55 Units/L 03/03/2020 1:15 AM [facility] AST 31 5 - 34 Units/L 03/03/2020 1:15 AM [facility] Anion Gap 17 8 - 18 03/03/2020 1:15 AM [facility] BUN/Creatinine Ratio 17 7 - 23 03/03/2020 1:15 AM [facility] Osmolality Calculated 280 270 - 300 mOsm/kg 03/03/2020 1:15 AM [facility] Albumin/Globulin Ratio 0.8(L) 1.1 - 2.3 03/03/2020 1:15 AM [facility] eGFR >60 >60 mL/min/1.7 3 m2 03/03/2020 1:15 AM [facility] Blood BLOOD SPECIMEN / Unknown Lab Venipuncture / Unknown 03/03/2020 12:14 AM CDT 03/03/2020 12:27 AM CDT Tiffanie Nguyen TRANSCRIBING OPERATOR HEAD-SEWING DEMONSTRATOR LAB - CHEMISTRY ORDERABLES [address] [address] [phone] * (ABNORMAL) CBC W AUTO DIFFERENTIAL (03/03/2020 12:14 AM CDT) WBC 15.8(H) 3.5 - 10.5 10? 3 /uL 03/03/2020 12:32 AM [facility] Comment:The WBC count is cor rected by the instrument for [facility]'s RBC 3.76(L) 4.30 - 5.70 10? 6 /uL 03/03/2020 12:32 AM [facility] Hemoglobin 11.0(L) 13.5 - 17.5 g/dL 03/03/2020 12:32 AM [facility] Hematocrit 31.8(L) 39.0 - 50.0 % 03/03/2020 12:32 AM [facility] MCV 84.6 81.0 - 97.0 fL 03/03/2020 12:32 AM [facility] MCH 29.3 28.0 - 34.0 pg 03/03/2020 12:32 AM [facility] MCHC 34.6 32.0 - 36.0 g/dL 03/03/2020 12:32 AM [facility] Platelet Count 338 150 - 400 10? 3 /uL 03/03/2020 12:32 AM [facility] RDW-SD 49.7 36.0 - 50.0 fL 03/03/2020 12:32 AM [facility] RDW-CV 16.4(H) 11.2 - 14.8 % 03/03/2020 12:32 AM [facility] MPV 11.2 9.3 - 12.8 fL 03/03/2020 12:32 AM [facility] nRBC Absolute 1.72(H) 0 10? 3 /uL 03/03/2020 12:32 AM [facility] nRBC Auto 10.9(H) 0 /100 WBC 03/03/2020 12:32 AM [facility] Neutrophils % 84.7(H) 35.0 - 70.0 % 03/03/2020 12:32 AM [facility] Lymphocytes % 3.2(L) 19.7 - 55.1 % 03/03/2020 12:32 AM [facility] Monocytes % 8.4 3.0 - 15.0 % 03/03/2020 12:32 AM [facility] Eosinophils % 0.1 0.0 - 6.0 % 03/03/2020 12:32 AM [facility] Basophil % 0.3 0.0 - 1.5 % 03/03/2020 12:32 AM [facility] Neutrophils Absolute 13.4(H) 1.6 - 7.0 10? 3 /uL 03/03/2020 12:32 AM [facility] Lymphocyte Absolute 0.5(L) 0.8 - 2.9 10? 3 /uL 03/03/2020 12:32 AM [facility] Monocytes Absolute 1.33(H) 0.14 - 0.66 10? 3 /uL 03/03/2020 12:32 AM T [facility] Eosinophils Absolute 0.01 0.00 - 0.45 10? 3 /uL 03/03/2020 12:32 AM [facility] Basophils Absolute 0.04 0.00 - 0.06 10? 3 /uL 03/03/2020 12:32 AM [facility] Immature Granulocytes % 3.3(H) 0.0 - 1.0 % 03/03/2020 12:32 AM [facility] Blood BLOOD SPECIMEN / Unknown Lab Venipuncture / Unknown 03/03/2020 12:14 AM CDT 03/03/2020 12:27 AM CDT Tiffanie Nguyen TRANSCRIBING OPERATOR HEAD-SEWING DEMONSTRATOR LAB - HEMATOLOG Y ORDERABLES [address] [address] [phone] * PNEUMOCYSTIS JIROVECI QUANT PCR (03/03/2020 12:14 AM CDT) See Scanned Document SEE SCANNED REPORT 03/07/2020 11:47 AM CDT [facility] REF LAB NON INTERF Microbiology BLOOD SPECIMEN / Unknown Collection / Unknown 03/03/2020 12:14 AM CDT 03/03/2020 12:27 AM CDT Dana Lala TRANSCRIBING OPERATOR HEAD-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 LAB - MICROB IOLOGY ORDERABLES [facility] REF LAB NON INTERF [address] [place] [phone], [place] * ZXET-H-VYNEAE FUNGITELL BAL/BLOOD (03/03/2020 12:14 AM CDT) See Scanned Document See Scanned Report 03/15/2020 9:01 PM CDT [facility] REF [facility] NON INTERF Microbiology BLOOD SPECIMEN / Unknown Collection / Unknown 03/03/2020 12:14 AM CDT 03/03/2020 12:27 AM CDT Dana Lala TRANSCRIBING OPERATOR HEAD-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 LAB - MICROB IOLOGY ORDERABLES [facility] REF LAB NON INTERF [address] [phone] * CT CHEST W CONTRAST (03/02/2020 10:04 [...] vena cava. Dictated by Jose Gonzalez MD (information services vice president). I, Dr. YARA MADRIGAL have personally reviewed [...] vena cava. Dictated by Jose Gonzalez MD (information services vice president). I, Dr. YARA MADRIGAL have personally reviewed and interpreted this examination/study. This report was electronically signed by YARA MADRIGAL on 03/03/2020 10:09 AM . Dana Lala TRANSCRIBING OPERATOR HEAD-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 CT ORDERABLE S * CULTURE BLOOD (03/02/2020 6:42 PM CDT) Culture No growth day 5 SP[place]ER 03/07/2020 11:30 PM CDT [facility] MICRO[facility]OLOG[facility] Blood PERIPHERAL BLOOD / Unknown Lab Venipuncture / Unknown 03/02/2020 6:42 PM CDT 03/02/2020 6:54 PM CDT Keli Esi TRANSCRIBING OPERATOR HEAD-SEWING DEMONSTRATOR LAB - MICROBIOLOG Y ORDERABLES Performing Organization Address City/[facility]/ZIP Co de Phone Number [facility] MICROBIOLOGY [address] [place] [address], [facility] [phone] * CULTURE BLOOD (03/02/2020 6:29 PM CDT) Culture No growth day 5 [place] 03/07/2020 11:30 PM CDT [facility] MICROBIOLOG[facility] Blood PERIPHERAL BLOOD / Unknown Lab Venipuncture / Unknown 03/02/2020 6:29 PM CDT 03/02/2020 6:53 PM CDT Keli Evie TRANSCRIBING OPERATOR HEAD-SEWING DEMONSTRATOR LAB - MICROBIOLOG Y ORDERABLES [facility] MICROBIOLOG[facility] [address] [place] [id number] [place] [address] * PHOSPHORUS BLOOD (03/01/2020 11:52 PM CDT) Pathologist [facility] [place] Phosphorus 3.4 2.3 - 4.7 mg/dL 03/02/2020 12:53 AM CDT [facility] Blood BLOOD SPECIMEN / Unknown Lab Venipuncture / Unknown 03/01/2020 11:52 PM CDT 03/02/2020 12:33 AM CDT Lara Patrick [facility] LAB - CHEMISTRY ORDERABLES [address] [address], [facility] [phone] * MAGNESIUM BLOOD (03/01/2020 11:52 PM CDT) Pathologist [facility] [place] Magnesium 1.9 1.6 - 2.6 mg/dL 03/02/2020 12:53 AM T [facility] Blood BLOOD SPECIMEN / Unknown Lab Venipuncture / Unknown 03/01/2020 11:52 PM CDT 03/02/2020 12:33 AM CDT Lara Patrick [facility] LAB - CHEMISTRY ORDERABLES [address] [address], [facility] [phone] * (ABNORMAL) COMPREHENSIVE METABOLIC PANEL (03/01/2020 11:52 PM CDT) Pathologist [facility] [place] BUN 21 7 - 26 mg/dL 03/02/2020 12:53 AM [facility] Creatinine 0.8 0.6 - 1.2 mg/dL 03/02/2020 12:53 AM CDT [facility] Sodium 142 136 - 145 mmol/L 03/02/2020 12:53 AM T [facility] Potassium 3.7 3.5 - 4.5 mmol/L 03/02/2020 12:53 AM T [facility] Chloride 107 98 - 107 mmol/L 03/02/2020 12:53 AM T [facility] CO2 18(L) 22 - 29 mmol/L 03/02/2020 12:53 AM [facility] Glucose 122(H) 70 - 115 mg/dL 03/02/2020 12:53 AM [facility] Calcium 8.2(L) 8.4 - 10.2 mg/dL 03/02/2020 12:53 AM [facility] Protein Total 5.3(L) 6.0 - 8.3 g/dL 03/02/2020 12:53 AM [facility] Albumin 2.4(L) 3.4 - 5.0 g/dL 03/02/2020 12:53 AM [facility] Bilirubin Total 0.2 0.2 - 1.2 mg/dL 03/02/2020 12:53 AM [facility] Alkaline Phosphatase 86 40 - 150 Units/L 03/02/2020 12:53 AM [facility] ALT 94(H) 0 - 55 Units/L 03/02/2020 12:53 AM [facility] AST 29 5 - 34 Units/L 03/02/2020 12:53 AM [facility] Anion Gap 21(H) 8 - 18 03/02/2020 12:53 AM [facility] BUN/Creatinine Ratio 26(H) 7 - 23 03/02/2020 12:53 AM [facility] Osmolality Calculated 298 270 - 300 mOsm/kg 03/02/2020 12:53 AM [facility] Albumin/Globulin Ratio 0.8(L) 1.1 - 2.3 03/02/2020 12:53 AM [facility] eGFR >60 >60 mL/min/1.7 3 m2 03/02/2020 12:53 AM [facility] Blood BLOOD SPECIMEN / Unknown Lab Venipuncture / Unknown 03/01/2020 11:52 PM CDT 03/02/2020 12:33 AM [facility] Tiffanie Nguyen TRANSCRIBING OPERATOR HEAD-SEWING DEMONSTRATOR LAB - CHEMISTRY ORDERABLES [address] [address], [facility] [phone] * (ABNORMAL) CBC W AUTO DIFFERENTIAL (03/01/2020 11:52 PM T) WBC 20.6(H) 3.5 - 10.5 10? 3 /uL 03/02/2020 12:37 AM [facility] Comment:The WBC count is cor rected by the instrument for nRBC's RBC 3.77(L) 4.30 - 5.70 10? 6 /uL 03/02/2020 12:37 AM [facility] Hemoglobin 11.0(L) 13.5 - 17.5 g/dL 03/02/2020 12:37 AM [facility] Hematocrit 31.8(L) 39.0 - 50.0 % 03/02/2020 12:37 AM [facility] MCV 84.4 81.0 - 97.0 fL 03/02/2020 12:37 AM [facility] MCH 29.2 28.0 - 34.0 pg 03/02/2020 12:37 AM [facility] MCHC 34.6 32.0 - 36.0 g/dL 03/02/2020 12:37 AM [facility] Platelet Count 416(H) 150 - 400 10? 3 /uL 03/02/2020 12:37 AM [facility] RDW-SD 50.1(H) 36.0 - 50.0 fL 03/02/2020 12:37 AM [facility] RDW-CV 16.5(H) 11.2 - 14.8 % 03/02/2020 12:37 AM [facility] MPV 11.1 9.3 - 12.8 fL 03/02/2020 12:37 AM [facility] nRBC Absolute 0.89(H) 0 10? 3 /uL 03/02/2020 12:37 AM [facility] nRBC Auto 4.3(H) 0 /100 WBC 03/02/2020 12:37 AM [facility] Neutrophils % 88.1(H) 35.0 - 70.0 % 03/02/2020 12:37 AM [facility] Lymphocytes % 3.8(L) 19.7 - 55.1 % 03/02/2020 12:37 AM [facility] Monocytes % 5.6 3.0 - 15.0 % 03/02/2020 12:37 AM T [facility] Eosinophils % 0.0 0.0 - 6.0 % 03/02/2020 12:37 AM [facility] Basophil % 0.2 0.0 - 1.5 % 03/02/2020 12:37 AM [facility] Neutrophils Absolute 18.1(H) 1.6 - 7.0 10? 3 /uL 03/02/2020 12:37 AM [facility] Lymphocyte Absolute 0.8 0.8 - 2.9 10? 3 /uL 03/02/2020 12:37 AM [facility] Monocytes Absolute 1.16(H) 0.14 - 0.66 10? 3 /uL 03/02/2020 12:37 AM [facility] Eosinophils Absolute 0.00 0.00 - 0.45 10? 3 /uL 03/02/2020 12:37 AM [facility] Basophils Absolute 0.04 0.00 - 0.06 10? 3 /uL 03/02/2020 12:37 AM [facility] Immature Granulocytes % 2.3(H) 0.0 - 1.0 % 03/02/2020 12:37 AM [facility] Blood BLOOD SPECIMEN / Unknown Lab Venipuncture / Unknown 03/01/2020 11:52 PM CDT 03/02/2020 12:33 AM CDT Tiffanie Nguyen TRANSCRIBING OPERATOR HEAD-SEWING DEMONSTRATOR LAB - HEMATOLOG Y ORDERABLES Performing Organization Address [facility]/State/[facility] Co de Phone Number [address] [address] [phone] * FLOW CYTOMETRY BODY FLUID (03/01/2020 4:18 PM CDT) Case Report Flow Cytometry ?Case: [id number] ? Authorizing Provider: ??Dana Lala, ? Collected: ? TRANSCRIBING OPERATOR HEAD-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 ? Ordering Location: ? [facility] ?Received: ?03/01/2020 11:07 AM ? Pathologist: ? Margaret Hooker Mai, DO ? Specimen: ?CSF Tube 3 ? 03/01/2020 4:18 PM CDT [facility] Final Diagnosis Cerebrospinal fluid, flow cytometric immunophenotypic analysis: - Insufficient hematopoietic cells for analysis. - See interpretation. 03/01/2020 4:18 PM [facility] Flow Cytometry Interpretation Preliminary characterization of the cerebrospinal fluid specimen demonstrates too few hematopoietic cells for flow cytometric analysis. A cytospin prepared from the flow cytometry specimen is reviewed for software quality specialist purposes. Flow cytometry is not performed. 03/01/2020 4:18 PM [facility] Flow Cytometry Results Too few hematopoetic cells for flow cytometric analysis. 03/01/2020 4:18 PM CDT [facility] Client Specimen ID # [id number] 03/01/2020 4:18 PM CDT [facility] Reason for test Fever, unspecified fever cause Diffuse large B-cell lymphoma, unspecified body region 03/01/2020 4:18 PM CDT [facility] Disclaimer Test performed at [facility], [address] [place] [address], [id number]. *The established laboratory minimum viability is 70%. [...] qualified to perform high complexity clinical testing. 03/01/2020 4:18 PM CDT [facility] Embedded Images 0 4:18 PM CDT [facility] Fluid CEREBROSPINAL FLUID SPECIMEN / Unknown 03/01/2020 11:07 AM CDT Dana Lala APRN-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 LAB - PATHOL OGY/CYTOLOGY ORDERABLES [facility] [address] [place] [address]. [address] [phone] * HERPES SIMPLEX 1+2 PCR CSF (03/01/2020 12:41 PM CDT) Herpes Simplex Virus 1 PCR CSF Not detected Not detected 03/01/2020 7:20 PM CDT [facility]CRO[facility] Herpes Simplex Virus 2 PCR CSF Not detected Not detected 03/01/2020 7:20 PM CDT [facility] Microbiology CEREBROSPINAL FLUID SPECIMEN / Unknown Collection / Unknown 03/01/2020 12:41 PM CDT 03/01/2020 12:41 PM CDT Dana F Rimkus TRANSCRIBING OPERATOR HEAD-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 LAB - MICROB IOLOGY ORDERABLES [facility]CRO[facility] [address] [place] [address], [facility] [phone] * CRYPTOCOCCUS ANTIGEN CSF (03/01/2020 11:16 AM CDT) Cryptococcus Antigen CSF Negative Negative 03/01/2020 4:46 PM CDT [facility] MICROBIOLOGY Cerebral spinal fluid CEREBROSPINAL FLUID SPECIMEN / Unknown Collection / Unknown 03/01/2020 11:16 AM CDT 03/01/2020 11:16 AM CDT Marek Vasquez MD LAB - MICROBIOLOGY O RDERABLES [facility] MICRO[facility] [address] [place] [address], [facility] [phone] * PROTEIN CSF (03/01/2020 10:48 AM CDT) Protein CSF 20 15 - 45 mg/dL 03/01/2020 11:32 AM CDT [facility] Cerebral spinal fluid CEREBROSPINAL FLUID SPECIMEN / Unknown Collection / Unknown 03/01/2020 10:48 AM CDT 03/01/2020 11:01 AM CDT Dana F Dai TRANSCRIBING OPERATOR 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 LAB - BODY F LUID ORDERABLES Performing Organization Address City/[facility]/ZIP Co de Phone Number [address] [address], [facility] [phone] * (ABNORMAL) GLUCOSE CSF (03/01/2020 10:48 AM CDT) Glucose CSF 81(H) 40 - 70 mg/dL 03/01/2020 11:32 AM CDT [facility] Cerebral spinal fluid CEREBROSPINAL FLUID SPECIMEN / Unknown Collection / Unknown 03/01/2020 10:48 AM CDT 03/01/2020 11:01 AM CDT Dana Jonatan Dai TRANSCRIBING OPERATOR 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 LAB - BODY F LUID ORDERABLES [address] [address], [facility] [phone] * FL LUMBAR PUNCTURE (03/01/2020 10:44 AM CDT) Anatomical Region Laterality Modality Spine Radiographic Chayito ging 03/01/2020 10:4 6 AM CDT Impressions 03/01/2020 4:46 PM CDT IMPRESSION: 1. Successful lumbar puncture under fluoroscopic guidance at L3-L4. Dictated by Camacho Samayoa MD (Building Dismantler) Trey Harris MD, was personally present in the procedure room for the alfonso portions of the procedure and was immediately available to furnish services during the entire procedure. Dr. TREY Harris have personally reviewed and interpreted this examination/study. This report was electronically signed by TREY GROSSMAN ??on 03/01/2020 4:46 PM . Narrative 03/01/2020 [...] and wished to proceed. Attending physician: Dr. Grossman was present for the alfonso portions of [...] FLUOROSCOPY TIME: 38 seconds Procedure Note Trey Grossman MD - 03/01/2020 EXAMINATION: Diagnostic lumbar puncture [...] and wished to proceed. Attending physician: Dr. Grossman was present for the alfonso portions of [...] at L3-L4. Dictated by Camacho Samayoa MD (Building Dismantler) Trey Harris MD, was personally present in the procedure room for the alfonso portions of the procedure and was immediately available [facility] during the entire procedure. Dr. TREY Harris have personally reviewed and interpreted this examination/study. This report was electronically signed by TREY GROSSMAN on 03/01/2020 4:46 PM . Rafaela Sood TRANSCRIBING OPERATOR HEAD-SEWING DEMONSTRATOR FLUOROSCOPY OR DERABLES * DIFFERENTIAL MANUAL FLUID (03/01/2020 10:39 AM CDT) Lymphocytes % Fluid 46 % 03/01/2020 11:46 AM CDT [facility] Monocytes % Fluid 50 % 03/01/2020 11:46 AM CDT [facility] Macrophages % Fluid 4 % 03/01/2020 11:46 AM CDT [facility] Cerebral spinal fluid CEREBROSPINAL FLUID SPECIMEN / Unknown Collection / Unknown 03/01/2020 10:39 AM CDT 03/01/2020 10:57 AM CDT Narrative [facility] - 03/01/2020 11:46 AM CDT Only 28 cells counted for diff. Dana Jonatan Dai TRANSCRIBING OPERATOR HEAD-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 LAB - BODY F LUID ORDERABLES [address] [address] [phone] * OLIGOCLONAL BANDS CSF+BLOOD PANEL (03/01/2020 10:39 AM CDT) See Scanned Document See scanned report 03/03/2020 6:02 AM CDT [facility] Oligoclonal Bands 03/03/2020 6:02 AM CDT [facility] Other MISCELLANEOUS SAMPLES / Unknown Collection / Unknown 03/01/2020 10:39 AM CDT 03/01/2020 3:18 PM CDT Dana Jonatan Dai TRANSCRIBING OPERATOR 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 LAB - BODY F LUID ORDERABLES Performing Organization Address City/[facility]/ZIP Co de Phone Number [facility]) [address] [place], [place] [phone] [place] [address] * CELL COUNT W DIFFERENTIAL CSF (03/01/2020 10:39 AM CDT) Color Fluid Colorless Colorless, Straw 03/01/2020 11:19 AM CDT [facility] Clarity Fluid Clear Clear 03/01/2020 11:19 AM CDT [facility] Volume Fluid 3.0 mL 03/01/2020 11:19 AM CDT [facility] WBC Calculation Fluid 1 0 - 5 /uL 03/01/2020 11:19 AM CDT [facility] RBC Calculation 1 /uL 0 11:19 AM CDT [facility] Xanthochromia Fluid Negative Negative 03/01/2020 11:19 AM CDT [facility] Differential Manual Differential to follow. 03/01/2020 11:19 AM CDT [facility] Cerebral spinal fluid CEREBROSPINAL FLUID SPECIMEN / Unknown Collection / Unknown 03/01/2020 10:39 AM CDT 03/01/2020 10:57 AM CDT Narrative [facility] - 03/01/2020 11:19 AM CDT No reference ranges established for body fluid cell counts. The reference ranges provided are derived from published literature. The test results must be integrated into the clinical context for interpretation. Dana Lala APRN-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 LAB - BODY F LUID ORDERABLES [address] [address], [facility] [phone] * PHOSPHORUS BLOOD (02/29/2020 11:34 PM CDT) Phosphorus 3.2 2.3 - 4.7 mg/dL 03/01/2020 12:01 AM CDT [facility] Blood BLOOD SPECIMEN / Unknown Lab Venipuncture / Unknown 02/29/2020 11:34 PM CDT 02/29/2020 11:41 PM CDT Tiffanie Nguyen APRN-SEWING DEMONSTRATOR LAB - CHEMISTRY ORDERABLES [address] [address], [facility] [phone] * MAGNESIUM BLOOD (02/29/2020 11:34 PM CDT) Magnesium 1.9 1.6 - 2.6 mg/dL 03/01/2020 12:01 AM CDT [facility] Blood BLOOD SPECIMEN / Unknown Lab Venipuncture / Unknown 02/29/2020 11:34 PM CDT 02/29/2020 11:41 PM CDT Tiffanie Nguyen APRN-SEWING DEMONSTRATOR LAB - CHEMISTRY ORDERABLES [facility] [address] [place] [address], [facility] [phone] * (ABNORMAL) COMPREHENSIVE METABOLIC PANEL (02/29/2020 11:34 PM [facility]) BUN 21 7 - 26 mg/dL 03/01/2020 12:01 AM [facility] Creatinine 1.0 0.6 - 1.2 mg/dL 03/01/2020 12:01 AM [facility] Sodium 142 136 - 145 mmol/L 03/01/2020 12:01 AM [facility] Potassium 4.3 3.5 - 4.5 mmol/L 03/01/2020 12:01 AM [facility] Chloride 109(H) 98 - 107 mmol/L 03/01/2020 12:01 AM [facility] CO2 21(L) 22 - 29 mmol/L 03/01/2020 12:01 AM [facility] Glucose 125(H) 70 - 115 mg/dL 03/01/2020 12:01 AM [facility] Calcium 8.4 8.4 - 10.2 mg/dL 03/01/2020 12:01 AM [facility] Protein Total 5.5(L) 6.0 - 8.3 g/dL 03/01/2020 12:01 AM [facility] Albumin 2.5(L) 3.4 - 5.0 g/dL 03/01/2020 12:01 AM [facility] Bilirubin Total 0.2 0.2 - 1.2 mg/dL 03/01/2020 12:01 AM [facility] Alkaline Phosphatase 87 40 - 150 Units/L 03/01/2020 12:01 AM [facility] ALT 95(H) 0 - 55 Units/L 03/01/2020 12:01 AM [facility] AST 59(H) 5 - 34 Units/L 03/01/2020 12:01 AM [facility] Anion Gap 16 8 - 18 03/01/2020 12:01 AM [facility] BUN/Creatinine Ratio 21 7 - 23 03/01/2020 12:01 AM [facility] Osmolality Calculated 298 270 - 300 mOsm/kg 03/01/2020 12:01 AM [facility] Albumin/Globulin Ratio 0.8(L) 1.1 - 2.3 03/01/2020 12:01 AM [facility] eGFR >60 >60 mL/min/1.7 3 m2 03/01/2020 12:01 AM [facility] Blood BLOOD SPECIMEN / Unknown Lab Venipuncture / Unknown 02/29/2020 11:34 PM CDT 02/29/2020 11:41 PM CDT Lara Patrick [employer] [facility] - CHEMISTRY ORDERABLES [address] [address], [facility] [phone] * (ABNORMAL) CBC W AUTO DIFFERENTIAL (02/29/2020 11:34 PM CDT) WBC 23.4(H) 3.5 - 10.5 10? 3 /uL 02/29/2020 11:55 PM [facility] RBC 3.64(L) 4.30 - 5.70 10? 6 /uL 02/29/2020 11:55 PM [facility] Hemoglobin 10.8(L) 13.5 - 17.5 g/dL 02/29/2020 11:55 PM [facility] Hematocrit 30.8(L) 39.0 - 50.0 % 02/29/2020 11:55 PM [facility] MCV 84.6 81.0 - 97.0 fL 02/29/2020 11:55 PM [facility] MCH 29.7 28.0 - 34.0 pg 02/29/2020 11:55 PM [facility] MCHC 35.1 32.0 - 36.0 g/dL 02/29/2020 11:55 PM [facility] Platelet Count 448(H) 150 - 400 10? 3 /uL 02/29/2020 11:55 PM [facility] RDW-SD 50.8(H) 36.0 - 50.0 fL 02/29/2020 11:55 PM [facility] RDW-CV 16.6(H) 11.2 - 14.8 % 02/29/2020 11:55 PM [facility] MPV 10.8 9.3 - 12.8 fL 02/29/2020 11:55 PM [facility] [facility] nRBC Absolute 0.18(H) 0 10? 3 /uL 02/29/2020 11:55 PM [facility] nRBC Auto 0.8(H) 0 /100 WBC 02/29/2020 11:55 PM [facility] Comment:Confirmed by repeat analysis. Neutrophils % 88.6(H) 35.0 - 70.0 % 02/29/2020 11:55 PM [facility] Lymphocytes % 3.9(L) 19.7 - 55.1 % 02/29/2020 11:55 PM [facility] Monocytes % 5.4 3.0 - 15.0 % 02/29/2020 11:55 PM [facility] Eosinophils % 0.0 0.0 - 6.0 % 02/29/2020 11:55 PM [facility] Basophil % 0.2 0.0 - 1.5 % 02/29/2020 11:55 PM [facility] Neutrophils Absolute 20.7(H) 1.6 - 7.0 10? 3 /uL 02/29/2020 11:55 PM [facility] Lymphocyte Absolute 0.9 0.8 - 2.9 10? 3 /uL 02/29/2020 11:55 PM [facility] Monocytes Absolute 1.27(H) 0.14 - 0.66 10? 3 /uL 02/29/2020 11:55 PM [facility] Eosinophils Absolute 0.00 0.00 - 0.45 10? 3 /uL 02/29/2020 11:55 PM [facility] Basophils Absolute 0.04 0.00 - 0.06 10? 3 /uL 02/29/2020 11:55 PM [facility] Immature Granulocytes % 1.9(H) 0.0 - 1.0 % 02/29/2020 11:55 PM [facility] Blood BLOOD SPECIMEN / Unknown Lab Venipuncture / Unknown 02/29/2020 11:34 PM CDT 02/29/2020 11:41 PM CDT Tiffanie Alvess TRANSCRIBING OPERATOR [facility] LAB - HEMATOLOG Y ORDERABLES Performing Organization Address [facility]/State/ZIP Co de Phone Number [address] [address], [facility] [phone] * VANCOMYCIN LEVEL TROUGH (02/29/2020 7:05 PM CDT) Vancomycin Trough 18.3 10.0 - 20.0 mcg/mL 02/29/2020 7:44 PM CDT [facility] Blood BLOOD SPECIMEN / Unknown Lab Venipuncture / Unknown 02/29/2020 7:05 PM CDT 02/29/2020 7:13 PM CDT Rafaela Sood TRANSCRIBING OPERATOR [facility] LAB - CHEMISTR Y ORDERABLES Performing Organization Address [facility]/[place] [address], [facility] [phone] * PHOSPHORUS BLOOD (02/29/2020 12:12 AM CDT) Phosphorus 3.2 2.3 - 4.7 mg/dL 02/29/2020 12:53 AM CDT [facility] Blood BLOOD SPECIMEN / Unknown Lab Venipuncture / Unknown 02/29/2020 12:12 AM CDT 02/29/2020 12:22 AM CDT Laragiovanna Alvess TRANSCRIBING OPERATOR [facility] - CHEMISTRY ORDERABLES [address] [address], [facility] [phone] * MAGNESIUM BLOOD (02/29/2020 12:12 AM CDT) Magnesium 1.9 1.6 - 2.6 mg/dL 02/29/2020 12:53 AM CDT [facility] Blood BLOOD SPECIMEN / Unknown Lab Venipuncture / Unknown 02/29/2020 12:12 AM CDT 02/29/2020 12:22 AM CDT Tiffanie Nguyen TRANSCRIBING OPERATOR [facility] - CHEMISTRY ORDERABLES [facility] [address] [place] [address], [facility] [phone] * (ABNORMAL) COMPREHENSIVE METABOLIC PANEL (02/29/2020 12:12 AM CDT) BUN 18 7 - 26 mg/dL 02/29/2020 12:53 AM [facility] Creatinine 0.9 0.6 - 1.2 mg/dL 02/29/2020 12:53 AM [facility] Sodium 143 136 - 145 mmol/L 02/29/2020 12:53 AM [facility] Potassium 4.2 3.5 - 4.5 mmol/L 02/29/2020 12:53 AM [facility] Chloride 111(H) 98 - 107 mmol/L 02/29/2020 12:53 AM [facility] CO2 19(L) 22 - 29 mmol/L 02/29/2020 12:53 AM [facility] Glucose 122(H) 70 - 115 mg/dL 02/29/2020 12:53 AM [facility] Calcium 8.6 8.4 - 10.2 mg/dL 02/29/2020 12:53 AM [facility] Protein Total 5.5(L) 6.0 - 8.3 g/dL 02/29/2020 12:53 AM [facility] Albumin 2.6(L) 3.4 - 5.0 g/dL 02/29/2020 12:53 AM [facility] Bilirubin Total 0.2 0.2 - 1.2 mg/dL 02/29/2020 12:53 AM [facility] Alkaline Phosphatase 89 40 - 150 Units/L 02/29/2020 12:53 AM [facility] ALT 40 0 - 55 Units/L 02/29/2020 12:53 AM [facility] AST 26 5 - 34 Units/L 02/29/2020 12:53 AM [facility] Anion Gap 17 8 - 18 02/29/2020 12:53 AM [facility] BUN/Creatinine Ratio 20 7 - 23 02/29/2020 12:53 AM [facility] Osmolality Calculated 299 270 - 300 mOsm/kg 02/29/2020 12:53 AM [facility] Albumin/Globulin Ratio 0.9(L) 1.1 - 2.3 02/29/2020 12:53 AM [facility] eGFR >60 >60 mL/min/1.7 3 m2 02/29/2020 12:53 AM [facility] Blood BLOOD SPECIMEN / Unknown Lab Venipuncture / Unknown 02/29/2020 12:12 AM CDT 02/29/2020 12:22 AM CDT Tiffanie Nguyen TRANSCRIBING OPERATOR [facility] LAB - CHEMISTRY ORDERABLES [address] [address], [facility] [phone] * (ABNORMAL) CBC W AUTO DIFFERENTIAL (02/29/2020 12:12 AM T) WBC 26.1(H) 3.5 - 10.5 10? 3 /uL 02/29/2020 12:26 AM [facility] RBC 3.67(L) 4.30 - 5.70 10? 6 /uL 02/29/2020 12:26 AM [facility] Hemoglobin 10.7(L) 13.5 - 17.5 g/dL 02/29/2020 12:26 AM [facility] Hematocrit 31.1(L) 39.0 - 50.0 % 02/29/2020 12:26 AM [facility] MCV 84.7 81.0 - 97.0 fL 02/29/2020 12:26 AM [facility] MCH 29.2 28.0 - 34.0 pg 02/29/2020 12:26 AM [facility] MCHC 34.4 32.0 - 36.0 g/dL 02/29/2020 12:26 AM [facility] Platelet Count 440(H) 150 - 400 10? 3 /uL 02/29/2020 12:26 AM [facility] RDW-SD 51.1(H) 36.0 - 50.0 fL 02/29/2020 12:26 AM [facility] RDW-CV 16.3(H) 11.2 - 14.8 % 02/29/2020 12:26 AM [facility] MPV 10.5 9.3 - 12.8 fL 02/29/2020 12:26 AM [facility] nRBC Absolute 0.04(H) 0 10? 3 /uL 02/29/2020 12:26 AM [facility] nRBC Auto 0.2(H) 0 /100 WBC 02/29/2020 12:26 AM [facility] Neutrophils % 92.0(H) 35.0 - 70.0 % 02/29/2020 12:26 AM [facility] Lymphocytes % 3.9(L) 19.7 - 55.1 % 02/29/2020 12:26 AM [facility] Monocytes % 2.5(L) 3.0 - 15.0 % 02/29/2020 12:26 AM [facility] Eosinophils % 0.0 0.0 - 6.0 % 02/29/2020 12:26 AM [facility] Basophil % 0.1 0.0 - 1.5 % 02/29/2020 12:26 AM [facility] Neutrophils Absolute 24.0(H) 1.6 - 7.0 10? 3 /uL 02/29/2020 12:26 AM [facility] Lymphocyte Absolute 1.0 0.8 - 2.9 10? 3 /uL 02/29/2020 12:26 AM [facility] Monocytes Absolute 0.64 0.14 - 0.66 10? 3 /uL 02/29/2020 12:26 AM [facility] Eosinophils Absolute 0.00 0.00 - 0.45 10? 3 /uL 02/29/2020 12:26 AM [facility] Basophils Absolute 0.03 0.00 - 0.06 10? 3 /uL 02/29/2020 12:26 AM [facility] Immature Granulocytes % 1.5(H) 0.0 - 1.0 % 02/29/2020 12:26 AM [facility] Blood BLOOD SPECIMEN / Unknown Lab Venipuncture / Unknown 02/29/2020 12:12 AM CDT 02/29/2020 12:22 AM CDT Lara Patrick [facility] LAB - HEMATOLOG Y ORDERABLES Performing Organization Address [facility]/ZIP Co de Phone Number [address] [address], [facility] [phone] * VANCOMYCIN LEVEL TROUGH (02/28/2020 5:56 AM CDT) Pathologist [facility] [place] Vancomycin Trough 17.8 10.0 - 20.0 mcg/mL 02/28/2020 7:31 AM CDT [facility] Blood BLOOD SPECIMEN / Unknown Venipuncture / Unknown 02/28/2020 5:56 AM CDT 02/28/2020 7:04 AM CDT Katia Roque [facility] LAB - CHEMISTRY O RDERABLES Performing Organization Address [facility] Co de Phone Number [address] [address], [facility] [phone] * ASPERGILLUS GALACTOMANNAN AG BAL/BLOOD (02/28/2020 5:55 AM CDT) Pathologist [facility] [place] Aspergillus Antigen BAL/Serum 0.05 0.00 - 0.49 Index 03/02/2020 1:06 AM CDT [facility] ([facility]) Other BLOOD SPECIMEN / Unknown Collection / Unknown 02/28/2020 5:55 AM CDT 02/28/2020 7:04 AM CDT Narrative [facility] ([facility]) - 03/02/2020 1:06 AM CDT Performed at: ??01 - [facility] [address] ??[id number] Fretted Instrument Maker Hand: Sherri Nolan MD, Phone: ??[phone] Katia Roque [facility] LAB - CHEMISTRY O RDERABLES Performing Organization Address City/[facility]/ZIP Co de Phone Number [facility] ([facility]) [address] [place] [address] * PHOSPHORUS BLOOD (02/27/2020 11:49 PM CDT) Phosphorus 2.7 2.3 - 4.7 mg/dL 02/28/2020 12:35 AM CDT [facility] Blood BLOOD SPECIMEN / Unknown Lab Venipuncture / Unknown 02/27/2020 11:49 PM CDT 02/27/2020 11:52 PM CDT Tiffanie Seymour Patrick TRANSCRIBING OPERATOR [facility] - CHEMISTRY ORDERABLES [place] [address], [facility] [phone] * MAGNESIUM BLOOD (02/27/2020 11:49 PM CDT) Pathologist [facility] [place] Magnesium 1.8 1.6 - 2.6 mg/dL 02/28/2020 12:35 AM CDT [facility] Blood BLOOD SPECIMEN / Unknown Lab Venipuncture / Unknown 02/27/2020 11:49 PM CDT 02/27/2020 11:52 PM CDT Tiffanie Seymour Patrick TRANSCRIBING OPERATOR [facility] - CHEMISTRY ORDERABLES [place] [address], [facility] [phone] * (ABNORMAL) COMPREHENSIVE METABOLIC PANEL (02/27/2020 11:49 PM CDT) Pathologist [facility] [place] BUN 16 7 - 26 mg/dL 02/28/2020 12:35 AM CDT [facility] Creatinine 0.9 0.6 - 1.2 mg/dL 02/28/2020 12:35 AM T [facility] Sodium 142 136 - 145 mmol/L 02/28/2020 12:35 AM CDT [facility] Potassium 4.6(H) 3.5 - 4.5 mmol/L 02/28/2020 12:35 AM T [facility] Chloride 108(H) 98 - 107 mmol/L 02/28/2020 12:35 AM T [facility] CO2 22 22 - 29 mmol/L 02/28/2020 12:35 AM [facility] Glucose 141(H) 70 - 115 mg/dL 02/28/2020 12:35 AM [facility] Calcium 8.6 8.4 - 10.2 mg/dL 02/28/2020 12:35 AM [facility] Protein Total 5.7(L) 6.0 - 8.3 g/dL 02/28/2020 12:35 AM [facility] Albumin 2.6(L) 3.4 - 5.0 g/dL 02/28/2020 12:35 AM [facility] Bilirubin Total 0.1(L) 0.2 - 1.2 mg/dL 02/28/2020 12:35 AM [facility] Alkaline Phosphatase 97 40 - 150 Units/L 02/28/2020 12:35 AM [facility] ALT 29 0 - 55 Units/L 02/28/2020 12:35 AM [facility] AST 22 5 - 34 Units/L 02/28/2020 12:35 AM [facility] Anion Gap 17 8 - 18 02/28/2020 12:35 AM [facility] BUN/Creatinine Ratio 18 7 - 23 02/28/2020 12:35 AM [facility] Osmolality Calculated 298 270 - 300 mOsm/kg 02/28/2020 12:35 AM [facility] Albumin/Globulin Ratio 0.8(L) 1.1 - 2.3 02/28/2020 12:35 AM [facility] eGFR >60 >60 mL/min/1.7 3 m2 02/28/2020 12:35 AM [facility] Blood BLOOD SPECIMEN / Unknown Lab Venipuncture / Unknown 02/27/2020 11:49 PM CDT 02/27/2020 11:52 PM CDT Tiffanie Nguyen TRANSCRIBING OPERATOR [facility] LAB - CHEMISTRY ORDERABLES [address] [address], [facility] [phone] * (ABNORMAL) CBC W AUTO DIFFERENTIAL (02/27/2020 11:49 PM CDT) WBC 19.0(H) 3.5 - 10.5 10? 3 /uL 02/28/2020 12:18 AM [facility] Comment:All CBC parameters h ave been checked. RBC 3.68(L) 4.30 - 5.70 10? 6 /uL 02/28/2020 12:18 AM [facility] Hemoglobin 10.7(L) 13.5 - 17.5 g/dL 02/28/2020 12:18 AM [facility] Hematocrit 31.5(L) 39.0 - 50.0 % 02/28/2020 12:18 AM [facility] MCV 85.6 81.0 - 97.0 fL 02/28/2020 12:18 AM [facility] MCH 29.1 28.0 - 34.0 pg 02/28/2020 12:18 AM [facility] MCHC 34.0 32.0 - 36.0 g/dL 02/28/2020 12:18 AM [facility] Platelet Count 444(H) 150 - 400 10? 3 /uL 02/28/2020 12:18 AM [facility] RDW-SD 49.8 36.0 - 50.0 fL 02/28/2020 12:18 AM [facility] RDW-CV 15.9(H) 11.2 - 14.8 % 02/28/2020 12:18 AM [facility] MPV 10.8 9.3 - 12.8 fL 02/28/2020 12:18 AM [facility] nRBC Absolute 0.02(H) 0 10? 3 /uL 02/28/2020 12:18 AM [facility] nRBC Auto 0.1(H) 0 /100 WBC 02/28/2020 12:18 AM [facility] Neutrophils % 89.2(H) 35.0 - 70.0 % 02/28/2020 12:18 AM [facility] Lymphocytes % 6.4(L) 19.7 - 55.1 % 02/28/2020 12:18 AM [facility] Monocytes % 3.2 3.0 - 15.0 % 02/28/2020 12:18 AM [facility] Eosinophils % 0.0 0.0 - 6.0 % 02/28/2020 12:18 AM [facility] Basophil % 0.1 0.0 - 1.5 % 02/28/2020 12:18 AM [facility] Neutrophils Absolute 17.0(H) 1.6 - 7.0 10? 3 /uL 02/28/2020 12:18 AM [facility] Lymphocyte Absolute 1.2 0.8 - 2.9 10? 3 /uL 02/28/2020 12:18 AM [facility] Monocytes Absolute 0.60 0.14 - 0.66 10? 3 /uL 02/28/2020 12:18 AM [facility] Eosinophils Absolute 0.00 0.00 - 0.45 10? 3 /uL 02/28/2020 12:18 AM [facility] Basophils Absolute 0.01 0.00 - 0.06 10? 3 /uL 02/28/2020 12:18 AM [facility] Immature Granulocytes % 1.1(H) 0.0 - 1.0 % 02/28/2020 12:18 AM [facility] Blood BLOOD SPECIMEN / Unknown Lab Venipuncture / Unknown 02/27/2020 11:49 PM CDT 02/27/2020 11:52 PM CDT Lara Patrick TRANSCRIBING OPERATOR [facility] LAB - HEMATOLOG Y ORDERABLES Performing Organization Address [facility]/State/[facility] Co de Phone Number [address] [phone] [phone] * PT-INR [facility] (02/27/2020 11:49 PM CDT) PT 14.2 12.1 - 14.8 Seconds 02/28/2020 12:06 AM [facility] INR 1.1 See Comment 02/28/2020 12:06 AM [facility] Comment:The suggested therap eutic range for standard coumadin (warfarin) therapy is an INR of 2.0-3.0. For high-risk patients (Mechanical Mitral Valve Prosthesis, etc.), the suggested prophylactic therapeutic range is an INR of 2.5-3.5. Blood BLOOD SPECIMEN / Unknown Lab Venipuncture / Unknown 02/27/2020 11:49 PM CDT 02/27/2020 11:52 PM CDT Katia Quintanautt [facility] LAB - COAGULATION ORDERABLES Performing Organization Address City/[facility]/ZIP Co de Phone Number [facility] [address] [place] [address], [facility] [phone] * SARS-COV-2 (COVID-19) IN HOUSE (02/27/2020 4:41 PM CDT) COVID-19 PCR Not detected Not detected, Invalid 02/28/2020 3:52 PM CDT [facility] MICROBIOLOGY Microbiology SPECIMEN FROM NASOPHARYNGEAL STRUCTURE / Unknown Collection / Unknown 02/27/2020 4:41 PM CDT 02/27/2020 4:49 PM CDT Narrative [facility] - 02/28/2020 3:52 PM CDT This Real Time RT-PCR assay was developed and its performance characteristics determined by [facility]. This test has been authorized by the Food and Drug administration (FDA)under an Emergency Use Authorization (EUA). This test has been validated [...] the authorization is terminated or revoked sooner. Katia Quintanadarinel [facility] LAB - MICROBIOLOG Y ORDERABLES [facility] MICROBIOLOG[facility] [address] [place] [address], [facility] [phone] * HISTOPLASMA GALACTOMANNAN AG URINE (02/27/2020 4:41 PM CDT) Urine URINE / Unknown Collection / Unknown 02/27/2020 4:41 PM CDT 02/27/2020 4:50 PM CDT Katia Roque TRANSCRIBING OPERATOR [facility] LAB - URINE CHEMI STRY ORDERABLES [facility] REF [facility] NON INTERF [address] [place] [phone] * FLOW CYTOMETRY T-HELPER CELLS (CD4) COUNT (02/27/2020 3:14 PM CDT) Pathologist [facility] [place] Reason for test Diffuse large B-cell lymphoma, unspecified body region 02/28/2020 11:13 AM [facility] Client Specimen ID # [id number] 02/28/2020 11:13 AM [facility] Number of Markers 3 02/28/2020 11:13 AM [facility] Flow Cytometry Results Differential Result Comment WBC Count /uL 19,000 % Lymphocytes 6 Lymphocyte Count u/L 1,140 Cell Region A: Lymphocytes Surface Marker Results % Absolute Count (cells/uL) CD3 88 1,003 CD3+CD4+ 6 68 CD3+CD8+ 81 923 CD4:CD8 Ratio 0.07 02/28/2020 11:13 AM [facility] Flow Cytometry Interpretation Testing is technical only and does not require an interpretation of results. 02/28/2020 11:13 AM [facility] Reference Range Adult Normal Reference Range Adult (> 18 years) CD3 54-84 % CD4 33-63 % CD8 12-39 % CD19 5-19 % CD56 6-26 % CD4+CD45RA+ 30-50 % CD4+CD45RO+ 17-42 % CD19+CD27+ 7-48 % CD19+CD27+IgD+ 7-29 % CD19+CD27+IgD- 3-23 % CD19+WJ71-YhL+ 29-93 % % 02/28/2020 11:13 AM [facility] Disclaimer Test performed at [facility], [address] [place] [address], [id number]. This test was developed and its performance [...] perform high complexity clinical testing. By law [place], CD4 lymphocyte counts on patients with HIV infection must be reported by the physician to the [facility] authority. 02/28/2020 11:13 AM CDT [facility] Embedded Images 0 11:13 AM CDT [facility] Blood BLOOD SPECIMEN / Unknown Lab Venipuncture / Unknown 02/27/2020 3:14 PM CDT 02/27/2020 3:22 PM CDT Katia Roque APRN-[facility] LAB - PATHOLOGY/C YTOLOGY ORDERABLES Performing Organization Address [facility] Co de Phone Number [facility] [address] [phone] * BLASTOMYCES ANTIBODY BY ID (02/27/2020 3:14 PM CDT) Blastomyces Antibody (ID) None Detected None Detected 03/03/2020 6:06 PM CDT [employer] ([facility]) Comment: INTERPRETIVE INFORMATION: Blastomyces dermatitidis Antibodies by ?Immunodiffusion A positive result may suggest active or recent infection. The test is positive in about 80 percent of cases. Cross reactions occur, especially with histoplasmosis. A negative test (none detected) does not exclude blastomycosis. Performed By: [employer] [address] [place] [id number] Manager Speech: Toribio Elizondo MD, MS Blood BLOOD SPECIMEN / Unknown Lab Venipuncture / Unknown 02/27/2020 3:14 PM CDT 02/27/2020 3:21 PM CDT Katia Roque APRN-[facility] LAB - CHEMISTRY O RDERABLES Performing Organization Address City/[facility]/ZIP Co de Phone Number [facility] [employer] ([facility]) [address] [place] [address], [facility] * HISTOPLASMA ANTIGEN BLOOD (02/27/2020 3:14 PM CDT) Comment SEE SCANNED REPORT 03/07/2020 12:10 PM CDT [facility] ([facility]) Blood BLOOD SPECIMEN / Unknown Lab Venipuncture / Unknown 02/27/2020 3:14 PM CDT 02/27/2020 3:21 PM CDT Katia Roque APRN-[facility] LAB - CHEMISTRY O RDERABLES Performing Organization Address [facility] Co de Phone Number [facility] ([facility]) [address] [place], [place] [phone] [place] [address] * PTT [facility] (02/27/2020 4:11 AM CDT) APTT 37.9 23.0 - 38.4 Seconds 02/27/2020 6:36 AM CDT [facility] Comment:Suggested therapeuti c range for full dose I.V. unfractionated heparin therapy for venous thromboembolism is 71 to 109 seconds. Blood BLOOD SPECIMEN / Unknown Lab Venipuncture / Unknown 02/27/2020 4:11 AM CDT 02/27/2020 6:32 AM CDT Hillary Apple MD LAB - COAGULATION OR DERABLES Performing Organization Address City/[facility]/ZIP Co de Phone Number [address] [phone] [phone] * (ABNORMAL) DIFFERENTIAL MANUAL (02/27/2020 4:11 AM CDT) WBC (corrected for NRBC) 7.3 10? 3 /uL 02/27/2020 6:06 AM CDT [facility] Total Cell Count 100 02/27/20 20 6:06 AM CDT [facility] Neutrophils Absolute Manual 6.79 1.60 - 7.00 10? 3 /uL 02/27/2020 6:06 AM [facility] Comment:(BANDS+SEGS) x WBC = NEUT # (ANC) Lymphocyte Absolute Manual 0.44(L) 0.80 - 2.90 10? 3 /uL 02/27/2020 6:06 AM [facility] Monocytes Absolute Manual 0.07(L) 0.14 - 0.66 10? 3 /uL 02/27/2020 6:06 AM [facility] Band % Manual 3 0 - 10 % 02/27/2020 6:06 AM [facility] Neutrophil % Manual 90(H) 30 - 60 % 02/27/2020 6:06 AM [facility] Lymphocyte % Manual 6(L) 20 - 45 % 02/27/2020 6:06 AM [facility] Monocytes % Manual 1(L) 2 - 10 % 02/27/2020 6:06 AM [facility] Platelet Estimate Adequate Adequate 02/27/2020 6:06 AM [facility] Anisocytosis 1+(A) None 02/27/2020 6:06 AM [facility] Polychromasia Occasional( A) None 02/27/2020 6:06 AM [facility] Target Cells Few(A) None 02/27/2020 6:06 AM [facility] Sravani Cells Occasional( A) None 02/27/2020 6:06 AM [facility] Blood BLOOD SPECIMEN / Unknown Venipuncture / Unknown 02/27/2020 4:11 AM CDT 02/27/2020 4:18 AM CDT Tiffanie Nguyen TRANSCRIBING OPERATOR [facility] LAB - HEMATOLOG Y ORDERABLES [address] [address], [facility] [phone] * PHOSPHORUS BLOOD (02/27/2020 4:11 AM CDT) Phosphorus 3.5 2.3 - 4.7 mg/dL 02/27/2020 4:36 AM [facility] Blood BLOOD SPECIMEN / Unknown Venipuncture / Unknown 02/27/2020 4:11 AM CDT 02/27/2020 4:17 AM CDT Tiffanie Nguyen TRANSCRIBING OPERATOR [facility] LAB - CHEMISTRY ORDERABLES [address] [address], [facility] [phone] * MAGNESIUM BLOOD (02/27/2020 4:11 AM CDT) Magnesium 1.9 1.6 - 2.6 mg/dL 02/27/2020 4:36 AM [facility] Blood BLOOD SPECIMEN / Unknown Venipuncture / Unknown 02/27/2020 4:11 AM CDT 02/27/2020 4:17 AM CDT Tiffanie Nguyen TRANSCRIBING OPERATOR [facility] - CHEMISTRY ORDERABLES [address] [address], [facility] [phone] * (ABNORMAL) COMPREHENSIVE METABOLIC PANEL (02/27/2020 4:11 AM CDT) BUN 12 7 - 26 mg/dL 02/27/2020 4:36 AM [facility] Creatinine 0.8 0.6 - 1.2 mg/dL 02/27/2020 4:36 AM [facility] Sodium 140 136 - 145 mmol/L 02/27/2020 4:36 AM [facility] Potassium 4.5 3.5 - 4.5 mmol/L 02/27/2020 4:36 AM [facility] Chloride 108(H) 98 - 107 mmol/L 02/27/2020 4:36 AM [facility] CO2 19(L) 22 - 29 mmol/L 02/27/2020 4:36 AM [facility] Glucose 145(H) 70 - 115 mg/dL 02/27/2020 4:36 AM [facility] Calcium 8.8 8.4 - 10.2 mg/dL 02/27/2020 4:36 AM [facility] Protein Total 6.2 6.0 - 8.3 g/dL 02/27/2020 4:36 AM [facility] Albumin 2.8(L) 3.4 - 5.0 g/dL 02/27/2020 4:36 AM [facility] Bilirubin Total 0.1(L) 0.2 - 1.2 mg/dL 02/27/2020 4:36 AM [facility] Alkaline Phosphatase 109 40 - 150 Units/L 02/27/2020 4:36 AM [facility] ALT 29 0 - 55 Units/L 02/27/2020 4:36 AM [facility] AST 22 5 - 34 Units/L 02/27/2020 4:36 AM [facility] Anion Gap 18 8 - 18 02/27/2020 4:36 AM [facility] BUN/Creatinine Ratio 15 7 - 23 02/27/2020 4:36 AM [facility] Osmolality Calculated 292 270 - 300 mOsm/kg 02/27/2020 4:36 AM [facility] Albumin/Globulin Ratio 0.8(L) 1.1 - 2.3 02/27/2020 4:36 AM [facility] eGFR >60 >60 mL/min/1.7 3 m2 02/27/2020 4:36 AM [facility] Blood BLOOD SPECIMEN / Unknown Venipuncture / Unknown 02/27/2020 4:11 AM CDT 02/27/2020 4:17 AM [facility] Tiffanie Nguyen TRANSCRIBING OPERATOR [employer] - CHEMISTRY ORDERABLES Performing Organization Address City/State[facility] Co de Phone Number [address] [id number] [phone] * (ABNORMAL) CBC W AUTO DIFFERENTIAL (02/27/2020 4:11 AM T) WBC 7.3 3.5 - 10.5 10? 3 /uL 02/27/2020 4:31 AM [facility] RBC 4.15(L) 4.30 - 5.70 10? 6 /uL 02/27/2020 4:31 AM [facility] Hemoglobin 11.9(L) 13.5 - 17.5 g/dL 02/27/2020 4:31 AM [facility] Hematocrit 35.4(L) 39.0 - 50.0 % 02/27/2020 4:31 AM [facility] MCV 85.3 81.0 - 97.0 fL 02/27/2020 4:31 AM [facility] MCH 28.7 28.0 - 34.0 pg 02/27/2020 4:31 AM [facility] MCHC 33.6 32.0 - 36.0 g/dL 02/27/2020 4:31 AM [facility] Platelet Count 402(H) 150 - 400 10? 3 /uL 02/27/2020 4:31 AM [facility] RDW-SD 49.6 36.0 - 50.0 fL 02/27/2020 4:31 AM [facility] RDW-CV 16.1(H) 11.2 - 14.8 % 02/27/2020 4:31 AM [facility] MPV 10.4 9.3 - 12.8 fL 02/27/2020 4:31 AM [facility] nRBC Absolute 0.00 0 10? 3 /uL 02/27/2020 4:31 AM [facility] nRBC Auto 0.0 0 /100 WBC 02/27/2020 4:31 AM [facility] Blood BLOOD SPECIMEN / Unknown Venipuncture / Unknown 02/27/2020 4:11 AM CDT 02/27/2020 4:18 AM CDT Tiffanie Nguyen TRANSCRIBING OPERATOR HEAD-SEWING DEMONSTRATOR LAB - HEMATOLOG Y ORDERABLES [address] [address], [facility] [phone] * (ABNORMAL) PT-INR [facility] (02/27/2020 4:11 AM CDT) PT 16.2(H) 12.1 - 14.8 Seconds 02/27/2020 4:30 AM [facility] INR 1.3 See Comment 02/27/2020 4:30 AM [facility] Comment:The suggested therap eutic range for standard coumadin (warfarin) therapy is an INR of 2.0-3.0. For high-risk patients (Mechanical Mitral Valve Prosthesis, etc.), the suggested prophylactic therapeutic range is an INR of 2.5-3.5. Blood BLOOD SPECIMEN / Unknown Venipuncture / Unknown 02/27/2020 4:11 AM CDT 02/27/2020 4:18 AM CDT Monica Latif TRANSCRIBING OPERATOR HEAD-SEWING DEMONSTRATOR LAB - COAGULATION ORDERABLES [facility] [address] [place] [phone], [facility] [phone] * TOXOPLASMA GONDII PCR (02/27/2020 4:11 AM CDT) Toxoplasma gondii PCR Not Detected 03/06/2020 10:16 AM CDT [employer] ([facility]) Comment: NOT DETECTED - A negative result does not rule out the presence of PCR inhibitors in the patient specimen or assay specific nucleic acid in concentrations below the level of detection by the assay. The specimen submitted for testing did not meet [employer] submission guidelines. Testing was performed on a specimen that did not meet validated type requirements. Performance characteristics of this assay may be affected. Interpret results with caution. Please refer to the [facility] Test Directory for information on specimen acceptability: http://www.[facility]/Specimen-Handling/index.jsp. INTERPRETIVE INFORMATION: Toxoplasma gondii by PCR This test was developed and its performance characteristics determined by [facility]. The U.S. Food and Drug Administration has not approved or cleared this test; however, FDA clearance or approval is not currently required for clinical use. The results are not intended to be used as the sole means for clinical diagnosis or patient management decisions. Performed by [facility], [address] [place] [id number] [email or web address], Toribio Elizondo MD, Lab. Director Source Toxoplasma Blood 020 10:16 AM CDT [employer] ([facility]) Microbiology BLOOD SPECIMEN / Unknown Collection / Unknown 02/27/2020 4:11 AM CDT 02/27/2020 4:17 AM CDT Narrative [facility] [employer] ([facility]) - 03/06/2020 10:16 AM CDT Test results should be interpreted with caution. Assay was performed at client's request on a sub-optimal submission. Monica MIMS LAB - MICROBIOLOGY ORDERABLES [facility] [employer] [facility]) [address] [place] [address], [facility] * BARTONELLA HENSELAE ANTIBODY IGM (02/27/2020 4:11 AM CDT) Bartonella henselae Antibody IgM < 1:16 03/01/2020 11:29 PM CDT [facility] [employer] ([facility]) Comment: INTERPRETIVE INFORMATION: Bartonella henselae Antibody, [...] infection. Test developed and characteristics determined by [facility]. See Compliance Statement A: [employer]/CS Performed By: [facility] [address] [place] [address] Manager Speech: Toribio Elizondo MD, MS Blood BLOOD SPECIMEN / Unknown Venipuncture / Unknown 02/27/2020 4:11 AM CDT 02/27/2020 4:17 AM CDT Monica [place] TRANSCRIBING OPERATOR HEAD-SEWING DEMONSTRATOR LAB - SEROLOGY ORD ERABLES [facility] ([facility]) [address] [place] [address], [facility] * BARTONELLA HENSELAE ANTIBODY IGG (02/27/2020 4:11 AM CDT) Bartonella henselae Antibody IgG <1:64 03/01/2020 11:29 PM CDT [facility] ([facility]) Comment: INTERPRETIVE INFORMATION: Bartonella henselae Ab, [...] time. Test developed and characteristics determined by [facility]. See Compliance Statement A: [employer]/CS Performed By: [facility] [address] [place] [address] Manager Speech: Toribio Elizondo MD, MS Blood BLOOD SPECIMEN / Unknown Venipuncture / Unknown 02/27/2020 4:11 AM CDT 02/27/2020 4:17 AM CDT Monica [place] TRANSCRIBING OPERATOR HEAD-SEWING DEMONSTRATOR LAB - SEROLOGY ORD ERABLES [employer] ([facility]) [address] * TOXOPLASMA GONDII ANTIBODY IGM (02/27/2020 4:11 AM CDT) Toxoplasma Antibody IgM 6.2 <=7.9 AU/mL 03/02/2020 4:23 PM CDT [employer] ([facility]) Comment: INTERPRETIVE INFORMATION: Toxoplasma Ab, IgM [...] post-infection. This test is performed using the [facility] LIAISON. As suggested by the CDC, any [...] the amount of antibody present. Performed By: [facility] [address] [place] [address] Manager Speech: Toribio Elizondo MD, MS Blood BLOOD SPECIMEN / Unknown Venipuncture / Unknown 02/27/2020 4:11 AM CDT 02/27/2020 4:17 AM CDT Monica Latif TRANSCRIBING OPERATOR HEAD-SEWING DEMONSTRATOR LAB - SEROLOGY ORD ERABLES [employer] [facility]) [address] [place] [address], [facility] * TOXOPLASMA GONDII ANTIBODY IGG (02/27/2020 4:11 AM CDT) [facility] Toxoplasma Antibody IgG <3.0 IU/mL 03/01/2020 2:42 AM CDT [facility] [employer] ([facility]) Comment: INTERPRETIVE INFORMATION: Toxoplasma Ab, IgG [...] the amount of antibody present. Performed By: [facility] [address] [place] [address] Manager Speech: Toribio Elizondo MD, MS Blood BLOOD SPECIMEN / Unknown Venipuncture / Unknown 02/27/2020 4:11 AM CDT 02/27/2020 4:17 AM CDT Monica Latif APRNERIKA LAB - CHEMISTRY OR DERABLES Performing Organization Address [facility] Co de Phone Number [facility] [employer] ([facility]) [address] * CRYPTOCOCCUS ANTIGEN BLOOD (02/27/2020 4:11 AM CDT) Cryptococcus Antigen Negative Negative 02/27/2020 9:20 AM CDT [facility]CROBI[facility] Blood BLOOD SPECIMEN / Unknown Venipuncture / Unknown 02/27/2020 4:11 AM CDT 02/27/2020 4:17 AM CDT Monica Latif [facility] LAB - SEROLOGY ORD ERABLES Performing Organization Address City/[facility]/ZIP Co de Phone Number [facility] MICROBIOLOGY [address] [place], [place] [id number] [place] [address] * MRI BRAIN WWO CONTRAST (02/26/2020 9:47 [...] Monica MIMS MR ORDERABLES * CULTURE BLOOD (02/26/2020 5:11 PM CDT) Culture No growth day 5 SP[facility]ER 03/03/2020 1:15 AM CDT [facility] MICROBIOLOGY Blood PERIPHERAL BLOOD / Unknown Lab Venipuncture / Unknown 02/26/2020 5:11 PM CDT 02/26/2020 5:33 PM CDT Monica MIMS LAB - MICROBIOLOGY ORDERABLES [facility] MICROBIOLOG[facility] [address] [place], [place] [address], [facility] [phone] * CULTURE BLOOD (02/26/2020 5:05 PM CDT) Culture No growth day 5 [facility] 03/03/2020 1:15 AM CDT [facility] MICROBIOLOGY Blood PERIPHERAL BLOOD / Unknown Lab Venipuncture / Unknown 02/26/2020 5:05 PM CDT 02/26/2020 5:32 PM CDT Monica Latif [facility] LAB - MICROBIOLOGY ORDERABLES Performing Organization Address City/[facility] Co de Phone Number [facility] MICROBIOLOGY [address] [place] [address], [facility] [phone] * CULTURE BLOOD AFB (02/26/2020 5:05 PM CDT) Culture No acid-fast bacillus isolated 04/11/2020 4:08 PM CDT [facility] MICROBIOLOGY Blood PERIPHERAL BLOOD / Unknown Lab Venipuncture / Unknown 02/26/2020 5:05 PM CDT 02/26/2020 6:56 PM CDT Monica Latif [facility] LAB - MICROBIOLOGY ORDERABLES Performing Organization Address [facility] Phone Number [facility] [address] [place] [address], [facility] [phone] * CULTURE BLOOD FUNGUS (02/26/2020 5:05 PM CDT) Culture No fungus isolated [facility] 04/11/2020 10:26 AM CDT [facility] MICROBIOLOGY Blood PERIPHERAL BLOOD / Unknown Lab Venipuncture / Unknown 02/26/2020 5:05 PM CDT 02/26/2020 5:32 PM CDT Monica Latif TRANSCRIBING OPERATOR [facility] LAB - MICROBIOLOGY ORDERABLES Performing Organization Address [facility] Co de Phone Number [facility] [address] [place] [address], [facility] [phone] * CT CHEST ABDOMEN PELVIS W CONT [...] or pelvis. Dictated by Love Rowland MD (information services vice president). I, Dr. JOHN BLUM MD have personally [...] or pelvis. Dictated by Love Rowland MD (information services vice president). I, Dr. JOHN BLUM MD have personally reviewed and interpreted this examination/study. This report was electronically signed by JOHN BLUM MD on02/27/2020 7:01 AM . Katia Roque TRANSCRIBING OPERATOR HEAD-SEWING DEMONSTRATOR CT ORDERABLES * ADENOVIRUS PCR QUANTITATIVE (02/26/2020 12:01 PM CDT) Adenovirus Quantitative Copy/mL <1,000 cpy/mL 03/03/2020 3:35 PM CDT [facility] ([facility]) Adenovirus Quantitative Source Blood 03/03/2020 3:35 PM CDT [facility] ([facility]) Adenovirus Quantitative Log Copy/mL <3.0 log cpy/mL 03/03/2020 3:35 PM CDT [facility] ([facility]) Interpretation Adenovirus Quantitative Not Detected Not Detected 03/03/2020 3:35 PM CDT [facility] ([facility]) Comment: INTERPRETIVE INFORMATION: Adenovirus, Quantitative PCR [...] methodologies. Test developed and characteristics determined by [facility]. See Compliance Statement A: [employer]/CS Performed by [facility] [employer], [address] [place] [address] [email or web address], Toribio Elizondo MD, Lab. Director Blood BLOOD SPECIMEN / Unknown Lab Venipuncture / Unknown 02/26/2020 12:01 PM CDT 02/26/2020 12:30 PM CDT Katia Roque TRANSCRIBING OPERATOR HEAD-SEWING DEMONSTRATOR LAB - SEROLOGY OR DERABLES [employer] ([facility]) [address] * SIA-JUAN VIRUS QUANT BLOOD STL (02/26/2020 12:01 PM CDT) Pathologist [facility] [place] EBV Quant by PCR, Interp Not Detected Not Detected 02/28/2020 2:27 PM CDT [facility] MICRO[facility]Y Specimen Type Plasma 02/28/2020 2:27 PM CDT [facility] Blood BLOOD SPECIMEN / Unknown Lab Venipuncture / Unknown 02/26/2020 12:01 PM CDT 02/26/2020 12:30 PM CDT Narrative [facility] - 02/28/2020 2:27 PM CDT DNA [...] developed and its performance characteristics determined by [facility]. ??It has not been cleared or approved [...] high complexity clinical laboratory testing. Katia Roque TRANSCRIBING OPERATOR HEAD-SEWING DEMONSTRATOR LAB - CHEMISTRY O RDERABLES [facility] [address] [place] [address], [facility] [phone] * CYTOMEGALOVIRUS (CMV) QUANTITATIVE PLASMA (02/26/2020 12:01 PM CDT) CMV Quant by PCR, Interp Not Detected Not Detected 02/28/2020 5:30 PM CDT [facility] Blood BLOOD SPECIMEN / Unknown Lab Venipuncture / Unknown 02/26/2020 12:01 PM CDT 02/26/2020 12:30 PM CDT Narrative [facility] - 02/28/2020 5:30 PM CDT The [...] test methodology (Bartholomew RealTime CMV). Katia Roque APRNERIKA LAB - CHEMISTRY O RDLEONIE [facility] [address] [place] [address], [facility] [phone] * (ABNORMAL) IGG BLOOD (02/26/2020 12:01 PM CDT) IgG 209(L) 540-1,822 mg/dL 02/26/2020 1:11 PM CDT [facility] Blood BLOOD SPECIMEN / Unknown Lab Venipuncture / Unknown 02/26/2020 12:01 PM CDT 02/26/2020 12:30 PM CDT Katia Roque [facility] LAB - CHEMISTRY O RDERAFAWN Performing Organization Address [facility]/ZIP Co de Phone Number [address] [address], [facility] [phone] * (ABNORMAL) LDH BLOOD (02/26/2020 12:42 AM CDT) [facility] LDH Total 280(H) 125 - 243 Units/L 02/26/2020 1:14 AM CDT [facility] Blood BLOOD SPECIMEN / Unknown Lab Venipuncture / Unknown 02/26/2020 12:42 AM CDT 02/26/2020 12:48 AM CDT Tiffanie Nguyen [facility] LAB - CHEMISTRY ORDERABLES Performing Organization Address City/[facility]/ZIP Co de Phone Number [address] [address], [facility] [phone] * MAGNESIUM BLOOD (02/26/2020 12:42 AM CDT) Magnesium 1.7 1.6 - 2.6 mg/dL 02/26/2020 1:14 AM CDT [facility] Blood BLOOD SPECIMEN / Unknown Lab Venipuncture / Unknown 02/26/2020 12:42 AM CDT 02/26/2020 12:48 AM CDT Tiffanie Nguyen TRANSCRIBING OPERATOR HEAD-SEWING DEMONSTRATOR LAB - CHEMISTRY ORDERABLES [facility] [address] [place] [phone], [facility] [phone] * (ABNORMAL) COMPREHENSIVE METABOLIC PANEL (02/26/2020 12:42 AM CDT) BUN 11 7 - 26 mg/dL 02/26/2020 1:14 AM [facility] Creatinine 1.0 0.6 - 1.2 mg/dL 02/26/2020 1:14 AM [facility] Sodium 136 136 - 145 mmol/L 02/26/2020 1:14 AM [facility] Potassium 3.9 3.5 - 4.5 mmol/L 02/26/2020 1:14 AM [facility] Chloride 102 98 - 107 mmol/L 02/26/2020 1:14 AM [facility] CO2 23 22 - 29 mmol/L 02/26/2020 1:14 AM [facility] Glucose 97 70 - 115 mg/dL 02/26/2020 1:14 AM [facility] Calcium 8.6 8.4 - 10.2 mg/dL 02/26/2020 1:14 AM [facility] Protein Total 5.9(L) 6.0 - 8.3 g/dL 02/26/2020 1:14 AM [facility] Albumin 2.7(L) 3.4 - 5.0 g/dL 02/26/2020 1:14 AM [facility] Bilirubin Total 0.1(L) 0.2 - 1.2 mg/dL 02/26/2020 1:14 AM [facility] Alkaline Phosphatase 110 40 - 150 Units/L 02/26/2020 1:14 AM [facility] ALT 31 0 - 55 Units/L 02/26/2020 1:14 AM [facility] AST 29 5 - 34 Units/L 02/26/2020 1:14 AM [facility] Anion Gap 15 8 - 18 02/26/2020 1:14 AM [facility] BUN/Creatinine Ratio 11 7 - 23 02/26/2020 1:14 AM [facility] Osmolality Calculated 281 270 - 300 mOsm/kg 02/26/2020 1:14 AM [facility] Albumin/Globulin Ratio 0.8(L) 1.1 - 2.3 02/26/2020 1:14 AM [facility] eGFR >60 >60 mL/min/1.7 3 m2 02/26/2020 1:14 AM [facility] Blood BLOOD SPECIMEN / Unknown Lab Venipuncture / Unknown 02/26/2020 12:42 AM CDT 02/26/2020 12:48 AM T Tiffanie Nguyen TRANSCRIBING OPERATOR HEAD-SEWING DEMONSTRATOR LAB - CHEMISTRY ORDERABLES [address] [address], [facility] [phone] * (ABNORMAL) URINALYSIS REFLEX TO MICROSCOPIC NO CULTURE (02/26/2020 12:08 AM CDT) Color UA Yellow Straw, Yellow, Colorless 02/26/2020 12:28 AM [facility] Clarity UA Clear Clear, Slt Cloudy 02/26/2020 12:28 AM [facility] Specific [place] UA 1.031(H) 1.005 - 1.030 02/26/2020 12:28 AM [facility] pH UA 5.0 5.0 - 8.0 pH 02/26/2020 12:28 AM [facility] Protein UA 2+(A) Negative mg/dL 02/26/2020 12:28 AM [facility] Glucose UA Negative Negative mg/dL 02/26/2020 12:28 AM [facility] Ketone UA Negative Negative mg/dL 02/26/2020 12:28 AM [facility] Bilirubin UA Negative Negative mg/dL 02/26/2020 12:28 AM [facility] Blood UA Negative Negative 02/26/2020 12:28 AM [facility] Nitrite UA Negative Negative 02/26/2020 12:28 AM [facility] Leukocyte Esterase Negative Negative 02/26/2020 12:28 AM CDT [facility] Urobilinogen UA Negative Negative mg/dL 02/26/2020 12:28 AM T [facility] RBC UA 3-5 None Seen, 0-2, 3-5 /HPF 02/26/2020 12:28 AM CDT [facility] WBC UA 0-5 None Seen, 0-5 /HPF 02/26/2020 12:28 AM T [facility] Squamous Epithelial Cells UA None Seen None Seen, 0-2 /HPF 02/26/2020 12:28 AM CDT [facility] Mucus UA 1+ None, 1+ /LPF 02/26/2020 12:28 AM CDT [facility] Urine URINE SPECIMEN OBTAINED BY CLEAN CATCH PROCEDURE / Unknown Collection / Unknown 02/26/2020 12:08 AM CDT 02/26/2020 12:19 AM CDT Narrative [facility] - 02/26/2020 12:28 AM CDT Tiffanie Nguyen [facility] LAB - URINALYSI S ORDERABLES [address] [address], [facility] [phone] * CULTURE URINE (02/26/2020 12:08 AM CDT) Culture Urine No growth (<100 CFU/mL) SP[facility]ER 02/27/2020 7:44 AM CDT [facility] MICROBIOLOGY Urine URINE SPECIMEN OBTAINED BY CLEAN CATCH PROCEDURE / Unknown Collection / Unknown 02/26/2020 12:08 AM CDT 02/26/2020 12:19 AM CDT Tiffanie Nguyen [facility] LAB - MICROBIOL OGY ORDERABLES [facility]CRO[facility] [address] [place] [address], [facility] [phone] * CULTURE BLOOD (02/25/2020 10:55 PM CDT) Culture No growth day 5 SPENCER 03/02/2020 1:52 AM CDT [facility] MICROBIOLOG[facility] Blood PERIPHERAL BLOOD / Unknown Venipuncture / Unknown 02/25/2020 10:55 PM CDT 02/25/2020 11:02 PM CDT Tiffanie Alvess [facility] LAB - MICROBIOL OGY ORDERABLES Performing Organization Address City/[facility]/ZIP Co de Phone Number [facility]CRO[facility] [address] [place] [address], [facility] [phone] * SARS-COV-2 (COVID-19) ANTIBODY IGG (02/25/2020 10:52 PM CDT) Pathologist [facility] [place] CoV2 IGG Negative 02/26/2020 1:16 AM CDT [facility] Blood BLOOD SPECIMEN / Unknown Venipuncture / Unknown 02/25/2020 10:52 PM CDT 02/26/2020 12:27 AM CDT Narrative [facility] - 02/26/2020 1:16 AM CDT This serologic based test was developed by [employer] and its performance characteristics determined by [facility]. This test has not been [...] due to past or present infection with [id number] coronavirus strains. Rigorous scientific studies have not been completed to determine if detectable IgG to SARS-CoV-2 confers protective immunity. Tiffanie Seymour Patrick [facility] LAB - CHEMISTRY ORDERABLES Performing Organization Address City/[facility]/ZIP Co de Phone Number [facility] [address] [place] [phone], [facility] [phone] * PHOSPHORUS BLOOD (02/25/2020 10:52 PM CDT) Phosphorus 2.9 2.3 - 4.7 mg/dL 02/26/2020 12:17 AM [facility] Blood BLOOD SPECIMEN / Unknown Venipuncture / Unknown 02/25/2020 10:52 PM CDT 02/25/2020 11:02 PM CDT Tiffanie Nguyen TRANSCRIBING OPERATOR HEAD-SEWING DEMONSTRATOR LAB - CHEMISTRY ORDERABLES [address] [address] [phone] * (ABNORMAL) CBC W AUTO DIFFERENTIAL (02/25/2020 10:52 PM CDT) WBC 8.5 3.5 - 10.5 10? 3 /uL 02/25/2020 11:08 PM [facility] RBC 4.28(L) 4.30 - 5.70 10? 6 /uL 02/25/2020 11:08 PM [facility] Hemoglobin 12.4(L) 13.5 - 17.5 g/dL 02/25/2020 11:08 PM [facility] Hematocrit 36.4(L) 39.0 - 50.0 % 02/25/2020 11:08 PM [facility] MCV 85.0 81.0 - 97.0 fL 02/25/2020 11:08 PM [facility] MCH 29.0 28.0 - 34.0 pg 02/25/2020 11:08 PM [facility] MCHC 34.1 32.0 - 36.0 g/dL 02/25/2020 11:08 PM [facility] Platelet Count 464(H) 150 - 400 10? 3 /uL 02/25/2020 11:08 PM [facility] RDW-SD 48.6 36.0 - 50.0 fL 02/25/2020 11:08 PM [facility] RDW-CV 16.0(H) 11.2 - 14.8 % 02/25/2020 11:08 PM [facility] MPV 11.4 9.3 - 12.8 fL 02/25/2020 11:08 PM [facility] nRBC Absolute 0.00 0 10? 3 /uL 02/25/2020 11:08 PM CDT [facility] nRBC Auto 0.0 0 /100 WBC 02/25/2020 11:08 PM T [facility] Neutrophils % 65.2 35.0 - 70.0 % 02/25/2020 11:08 PM T [facility] Lymphocytes % 22.5 19.7 - 55.1 % 02/25/2020 11:08 PM CDT [facility] Monocytes % 9.4 3.0 - 15.0 % 02/25/2020 11:08 PM T [facility] Eosinophils % 1.5 0.0 - 6.0 % 02/25/2020 11:08 PM CDT [facility] Basophil % 0.7 0.0 - 1.5 % 02/25/2020 11:08 PM T [facility] Neutrophils Absolute 5.5 1.6 - 7.0 10? 3 /uL 02/25/2020 11:08 PM CDT [facility] Lymphocyte Absolute 1.9 0.8 - 2.9 10? 3 /uL 02/25/2020 11:08 PM CDT [facility] Monocytes Absolute 0.80(H) 0.14 - 0.66 10? 3 /uL 02/25/2020 11:08 PM CDT [facility] Eosinophils Absolute 0.13 0.00 - 0.45 10? 3 /uL 02/25/2020 11:08 PM T [facility] Basophils Absolute 0.06 0.00 - 0.06 10? 3 /uL 02/25/2020 11:08 PM CDT [facility] Immature Granulocytes % 0.7 0.0 - 1.0 % 02/25/2020 11:08 PM T [facility] Blood BLOOD SPECIMEN / Unknown Venipuncture / Unknown 02/25/2020 10:52 PM CDT 02/25/2020 11:02 PM CDT Tiffanie Nguyen TRANSCRIBING OPERATOR HEAD-SEWING DEMONSTRATOR LAB - HEMATOLOG Y ORDERABLES [address] [address], [facility] [phone] * CULTURE BLOOD (02/25/2020 10:52 PM CDT) Pathologist [facility] [place] Culture No growth day 5 SPENCER 03/02/2020 1:52 AM CDT [facility] MICROBIOLOG[facility] Blood PERIPHERAL BLOOD / Unknown Venipuncture / Unknown 02/25/2020 10:52 PM CDT 02/25/2020 11:02 PM CDT Tiffanie Nguyen APRN-ERIKA LAB - MICROBIOL OGY ORDERABLES [facility] MICRO[facility] [address] [place] [address], [facility] [phone] * SARS-COV-2 (COVID-19) IN HOUSE (02/25/2020 10:37 PM CDT) Pathologist [facility] [place] COVID-19 PCR Not detected Not detected, Invalid 02/26/2020 4:19 PM CDT [facility] Microbiology SPECIMEN FROM NASOPHARYNGEAL STRUCTURE / Unknown Collection / Unknown 02/25/2020 10:37 PM CDT 02/25/2020 11:02 PM CDT Narrative [facility] - 02/26/2020 4:19 PM CDT This Real Time RT-PCR assay was developed and its performance characteristics determined by [facility]. This test has been authorized by the Food and Drug administration (FDA)under an Emergency Use Authorization (EUA). This test has been validated [...] the authorization is terminated or revoked sooner. Tiffanie Nguyen APRN-[facility] - MICROBIOL OGY ORDERABLES [facility] [address] [place] [address], [facility] [phone] * RESPIRATORY PATHOGEN PANEL BY PCR (02/25/2020 10:37 PM CDT) Adenovirus PCR Not detected Not detected, Invalid, Indeterminate 02/26/2020 5:21 AM CDT [facility] Coronavirus PCR Not detected Not detected, Invalid, Indeterminate 02/26/2020 5:21 AM CDT [facility] Human Metapneumovirus PCR Not detected Not detected, Invalid, Indeterminate 02/26/2020 5:21 AM CDT [facility] Human Rhinovirus/Entero virus PCR Not detected Not detected, Invalid, Indeterminate 02/26/2020 5:21 AM CDT [facility] Influenza A PCR Not detected Not detected, Equivocal, Invalid, Indeterminate 02/26/2020 5:21 AM CDT [facility] Influenza B PCR Not detected Not detected, Invalid, Indeterminate 02/26/2020 5:21 AM CDT [facility] Parainfluenza Virus 1 PCR Not detected Not detected, Invalid, Indeterminate 02/26/2020 5:21 AM CDT [facility] Parainfluenza Virus 2 PCR Not detected Not detected, Invalid, Indeterminate 02/26/2020 5:21 AM CDT [facility] Parainfluenza Virus 3 PCR Not detected Not detected, Invalid, Indeterminate 02/26/2020 5:21 AM CDT [facility] Parainfluenza Virus 4 PCR Not detected Not detected, Invalid, Indeterminate 02/26/2020 5:21 AM CDT [facility] Respiratory Syncytial Virus PCR Not detected Not detected, Invalid, Indeterminate 02/26/2020 5:21 AM CDT [facility] Bordetella pertussis PCR Not detected Not detected, Invalid 02/26/2020 5:21 AM CDT [facility] Chlamydia pneumoniae PCR Not detected Not detected, Invalid, Indeterminate 02/26/2020 5:21 AM CDT [facility] Mycoplasma pneumoniae PCR Not detected Not detected, Invalid, Indeterminate 02/26/2020 5:21 AM T [facility] Microbiology SPECIMEN FROM NASOPHARYNGEAL STRUCTURE / Unknown Collection / Unknown 02/25/2020 10:37 PM CDT 02/25/2020 11:02 PM CDT Narrative [facility] - 02/26/2020 5:21 AM CDT This test is able to detect the following human coronaviruses: HKU1, NL63, 229E, and OC43. It will NOT detect 2019 Novel Coronavirus (2019-nCoV). If 2019-nCoV is suspected contact Infection Prevention for isolation and testing guidance. Tiffanie Nguyen TRANSCRIBING OPERATOR HEAD-SEWING DEMONSTRATOR LAB - MICROBIOL OGY ORDERABLES [facility] [address] [place] [address], [facility] [phone] * XR CHEST 1VW PORTABLE (02/25/2020 10:04 PM CDT) Anatomical Region Laterality Modality Chest Radiographic Chayito ging 02/26/2020 8:45 AM CDT Impressions 02/26/2020 1:48 PM CDT FINDINGS/IMPRESSION: Patchy airspace opacities are seen in the bilateral lungs which may represent atelectasis and/or infection. There is no pleural effusion or pneumothorax. The cardiomediastinal silhouette is normal. The visible bony thorax is intact. Dictated by Javier Robertson MD (information services vice president). Dr. OMAR Harris have personally reviewed and interpreted this examination/study. This report was electronically signed by OMAR WOODSON ??on 02/26/2020 1:48 PM . Narrative 02/26/2020 1:48 PM CDT EXAMINATION: XR CHEST 1VW PORTABLE HISTORY: R50.9: Fever, unspecified fever cause COMPARISON: 10/25/2019 Procedure Note Omar Woodson DO - 02/26/2020 EXAMINATION: XR CHEST 1VW PORTABLE HISTORY: R50.9: Fever, unspecified fever cause COMPARISON: 10/25/2019 FINDINGS/IMPRESSION: Patchy airspace opacities are seen in the bilateral lungs which may represent atelectasis and/or infection. There is no pleural effusion or pneumothorax. The cardiomediastinal silhouette is normal. The visiblebony thorax is intact. Dictated by Javier Robertson MD (information services vice president). Dr. OMAR Harris have personally reviewed and interpreted this examination/study. This report was electronically signed by OMAR WOODSON on 02/26/2020 1:48 PM . Tiffaine Nguyen APRN-SEWING DEMONSTRATOR DIAGNOSTIC IMAG ING ORDERABLES documented in this encounter Visit Diagnoses Diagnosis Fever, unspecified fever cause- Primary Diffuse large B-cell lymphoma, unspecified body region (HCC) Nonintractable headache, unspecified chronicity pattern, unspecified headache type Fever in other diseases 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 Anxiety Anxiety state, unspecified Restless legs syndrome (RLS) Status post autologous bone marrow transplant (HCC) Bone marrow replaced by transplant Abnormal CXR Other nonspecific abnormal finding of lung field Encounter for orogastric (OG) tube placement Fitting and adjustment of other gastrointestinal appliance and device Ground glass opacity present on imaging of lung Hypoxia Hypoxemia Acute respiratory failure with hypoxia (HCC) Acute respiratory failure Leukocytosis, unspecified type COVID-19 Visual discomfort, unspecified laterality Cervicalgia B-cell lymphoma, unspecified B-cell lymphoma type, unspecified body region (HCC) Abnormal levels of other serum enzymes Pneumonia due to COVID-19 virus Folliculitis Other specified disease of hair and hair follicles 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) Bone marrow replaced by transplant Ground glass opacity present on imaging of lung 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 Acute respiratory failure with hypoxia (HCC) Acute respiratory failure Pneumonia due to COVID-19 virus documented in this encounter Administered Medications Inactive Administered Medications - up to 3 most recent administrations Medication Order MAR Action Action Date Dose Rate Site 0.9% NaCl infusion ADS Med 1 dose, Starting on Fri03/08/20 at 0700, Until Fri03/08/20 at 0656, Created by cabinet override 0.9% NaCl infusion ADS Med 1 dose, Starting on Fri03/10/20 at 1541, Until Fri03/10/20 at 1619, Dian Lanza: markinet override $ New Bag/Syringe 03/10/2020 4:19 PM CDT 250 mL 0.9% NaCl infusion ADS Med 1 dose, Starting on 03/12/20 at 1211, Until 03/12/20 at 1224, Dian Lanza: cabinet override $ New Bag/Syringe 03/12/2020 12:24 PM CDT 250 mL 0.9% NaCl infusion at 100 mL/hr, Intravenous, CONTINUOUS, Starting on 03/04/20 at 1445, Until Fri03/10/20 at 1309 $ New Bag/Syringe 03/10/2020 6:11 AM CDT 100 mL/hr $ New Bag/Syringe 03/09/2020 5:56 PM CDT 100 mL /hr $ New Bag/Syringe 03/09/2020 6:19 AM CDT 100 mL /hr 0.9% NaCl injection 1-10 mL 1-10 mL, Intracatheter, PRN, Other, peripheral line flush, Starting on 03/06/20 at 1758, Until Fri04/05/20 at 2216, Flush peripheral IV catheter with 1-10 mL of normal saline before and after medications and prn to clear blood from the line or to verify patency. 0.9% NaCl injection 3 mL 3 mL, Intracatheter, EVERY 8 HOURS, First dose on Fri03/06/20 at 2200, Until Discontinued, Flush peripheral IV catheter with 3 mL of normal saline every 8 hours. $ Given 04/05/2020 5:21 PM CDT 3 mL $ Given 04/04/2020 3:47 PM CDT 3 mL $ Given 04/04/2020 5:02 AM CDT 3 mL 0.9% NaCl IV Bolus 1,000 mL, at 495.87 mL/hr, Administer over 121 Minutes, ONCE, 1 dose, On 02/26/20 at 1630 $ New Bag/Syringe 02/26/2020 5:12 PM CDT 1,000 mL 495.87 mL/hr 0.9% NaCl IV Bolus 500 mL, at 247.93 mL/hr, Administer over 121 Minutes, ONCE, 1 dose, On Fri03/03/20 at 1745 $ New Bag/Syringe 03/03/2020 5:54 PM CDT 500 mL 247.93 mL/hr acetaminophen (TYLENOL) tablet 325 mg 325 mg, Oral, EVERY 4 HOURS PRN, Fever, Moderate Pain, Severe Pain, Headache, Starting on Ofelia 03/09/20 at 2023, Until 04/05/20 at 2216, Blood cultures to be done every 48 hrs unless unstable. Last at 1800. $ Given 03/09/2020 9:16 PM CDT 325 mg acetaminophen (TYLENOL) tablet 650 mg 650 mg, Oral, EVERY 4 HOURS PRN, Fever, Starting on 02/26/20 at 1608, Until 02/27/20 at 2341 $ Given 02/27/2020 4:20 AM CDT 650 mg $ Given 02/27/2020 12:30 AM CDT 650 mg $ Given 02/26/2020 8:45 PM CDT 650 mg acetaminophen (TYLENOL) tablet 650 mg 650 mg, Oral, ONCE, 1 dose, On Ofelia 03/02/20 at 2145 $ Given 03/02/2020 9:46 PM CDT 650 mg acetaminophen (TYLENOL) tablet 650 mg 650 mg, Oral, ONCE, 1 dose, On Fri03/03/20 at 1730 $ Given 03/03/2020 5:54 PM CDT 650 mg acetaminophen (TYLENOL) tablet 650 mg 650 mg, Oral, ONCE, 1 dose, On 03/04/20 at 1515 $ Given 03/04/2020 3:01 PM CDT 650 mg acetaminophen (TYLENOL) tablet 650 mg 650 mg, Oral, EVERY 4 HOURS PRN, Fever, Starting on 03/04/20 at 1609, Until Ofelia 03/09/20 at 2013, Blood cultures to be done every 48 hrs unless unstable. Last at 1800. $ Given 03/09/2020 4:46 PM CDT 650 mg $ Given 03/09/2020 10:59 AM CDT 650 mg $ Given 03/09/2020 6:16 AM CDT 650 mg albuterol HFA (PROVENTIL;VENTOLIN;PROAIR) 108 (90 Base) MCG/ACT inhaler 2 puff 2 puff, Inhalation, EVERY 4 HOURS, First dose on Ofelia 03/02/20 at 2000, Until Discontinued, Shake well before using. WASTE DISPOSAL INSTRUCTION: Send to Pharmacy for Disposal. $ Given 04/05/2020 4:00 PM CDT 2 puffs $ Given 04/05/2020 12:00 PM CDT 2 puffs $ Given 04/05/2020 9:35 AM CDT 2 puffs apixaban (ELIQUIS) tablet 5 mg 5 mg, Oral, 2 TIMES DAILY, First dose on Fri02/25/20 at 2100, Until Discontinued $ Given 02/26/2020 8:45 PM CDT 5 mg $ Given 02/26/2020 8:04 AM CDT 5 mg $ Given 02/25/2020 10:37 PM CDT 5 mg apixaban (ELIQUIS) tablet 5 mg 5 mg, Oral, 2 TIMES DAILY, First dose on Fri03/02/20 at 0900, Until Discontinued $ Given 03/03/2020 10:28 AM CDT 5 mg $ Given 03/02/2020 8:02 PM CDT 5 mg $ Given 03/02/2020 8:29 AM CDT 5 mg artificial tears ophthalmic ointment Each Eye, EVERY 8 HOURS, First dose on Fri03/06/20 at 2200, Until Discontinued $ Given 04/04/2020 9:20 PM CDT $ Given 04/01/2020 8:29 PM CDT $ Given 04/01/2020 2:10 PM CDT ascorbic acid (VITAMIN C) 3,000 mg in 0.9% NaCl IV IVPB 3,000 mg, at 100 mL/hr, Intravenous, EVERY 6 HOURS, First dose on Fri03/11/20 at 1215, Until Discontinued Current Rate 03/28/2020 6:50 AM CDT 100 mL/hr $ New Bag/Syringe 03/28/2020 6:46 AM CDT 3,000 mg 100 mL /hr $ New Bag/Syringe 03/28/2020 12:13 AM CDT 3,000 mg 100 m L/hr budesonide-formoterol (SYMBICORT) 80-4.5 MCG/ACT inhaler 2 puff 2 puff, Inhalation, 2 TIMES DAILY, First dose on Fri03/22/20 at 0930, Until Discontinued, Rinse mouth after usage . WASTE DISPOSAL INSTRUCTION: Send to Pharmacy for Disposal. . $ Given 04/05/2020 9:36 AM CDT 2 puffs $ Given 04/04/2020 9:20 PM CDT 2 puffs $ Given 04/04/2020 8:09 AM CDT 2 puffs yseruybkut-gbjcgdzftafzh-zxxueuch (FIORICET) 50-325-40 MG tablet 1 tablet 1 tablet, Oral, ONCE, 1 dose, On Fri03/02/20 at 1630, Do not exceed 6 tablets in 24 hours $ Given 03/02/2020 5:17 PM CDT 1 tablet cefepime (MAXIPIME) 2,000 mg in sterile water (PF) 20 mL syringe 2,000 mg (2 g), Intravenous, EVERY 8 HOURS, First dose on Fri02/25/20 at 1600, Until Discontinued, Mix with 20 mL diluent for final concentration 2000 mg/20 mL. Administer IV over 6-10 minutes., Indication for anti-infective therapy: Suspected infection, Site of anti-infective therapy: Lower Respiratory $ Given 03/04/2020 12:13 AM CDT 2,000 mg $ Given 03/03/2020 5:53 PM CDT 2,000 mg $ Given 03/03/2020 10:28 AM CDT 2,000 mg celecoxib (CeleBREX) capsule 100 mg 100 mg, Oral, 2 TIMES DAILY, First dose (after last reorder) on Fri03/24/20 at 1200, Until Discontinued $ Given 04/05/2020 9:35 AM CDT 100 mg $ Given 04/04/2020 9:20 PM CDT 100 mg $ Given 04/04/2020 8:05 AM CDT 100 mg celecoxib (CeleBREX) capsule 100 mg 100 mg, Oral, 2 TIMES DAILY PRN, Joint pain, Starting on Fri04/05/20 at 1100, Until Fri04/05/20 at 2216 chlorhexidine (PERIDEX) 0.12 % oral solution 15 mL 15 mL, Mouth/Throat, 2 TIMES DAILY, First dose on Fri03/06/20 at 2100, Until Discontinued, Swab oral mucosa for 30 seconds. Do not brush teeth immediately after use. . WASTE DISPOSAL INSTRUCTIONS: Black Bin Disposal required. $ Given 03/08/2020 8:00 AM CDT 15 mL $ Given 03/07/2020 8:57 PM CDT 15 mL $ Given 03/07/2020 8:43 AM CDT 15 mL dexamethasone (DECADRON) injection 10 mg 10 mg, Intravenous, EVERY 6 HOURS, First dose on Fri02/26/20 at 1800, Until Discontinued $ Given 02/28/2020 11:18 AM CDT 10 mg $ Given 02/28/2020 5:51 AM CDT 10 mg $ Given 02/28/2020 1:01 AM CDT 10 mg dexamethasone (DECADRON) injection 6 mg 6 mg, Intravenous, DAILY, First dose on Fri03/04/20 at 1015, Until Discontinued $ Given 03/05/2020 9:05 AM CDT 6 mg $ Given 03/04/2020 10:27 AM CDT 6 mg dexamethasone (DECADRON) tablet 10 mg 10 mg, Oral, EVERY 6 HOURS, First dose on Fri02/28/20 at 1800, Until Discontinued, Take large doses with meals and take antacids between meals to prevent peptic ulcer $ Given 02/29/2020 5:38 AM CDT 10 mg $ Given 02/29/2020 12:22 AM CDT 10 mg $ Given 02/28/2020 5:24 PM CDT 10 mg dexamethasone (DECADRON) tablet 10 mg 10 mg, Oral, EVERY 6 HOURS, First dose on Fri02/29/20 at 1200, Until Discontinued, Take large doses with meals and take antacids between meals to prevent peptic ulcer $ Given 03/01/2020 12:34 PM CDT 10 mg $ Given 03/01/2020 5:50 AM CDT 10 mg $ Given 03/01/2020 12:08 AM CDT 10 mg dexamethasone (DECADRON) tablet 6 mg 6 mg, Oral, DAILY, First dose on Fri03/08/20 at 1100, Until Discontinued, Take large doses with meals and take antacids between meals to prevent peptic ulcer $ Given 03/11/2020 8:25 AM CDT 6 mg $ Given 03/10/2020 8:58 AM CDT 6 mg $ Given 03/09/2020 8:41 AM CDT 6 mg dexmedetomidine (PRECEDEX) 400 mcg in 100 mL infusion premix 0-1.5 mcg/kg/hr ? 121.2 kg (0-45.45 mL/hr), Intravenous, CONTINUOUS, Starting on Fri03/07/20 at 0945, Until Fri03/08/20 at 1812, Above RASS goal (agitated): Assess and treat pain first. Increase rate by ordered dose, do not increase more frequently than every 30 minutes. At RASS goal and no change in 4 hours: Decrease rate by 0.2 mcg/kg/hr. Below RASS goal (unarousable): Hold infusion until at goal RASS then restart at 50% previous rate. If significant hemodynamic changes, hold or decrease rate and notify physician. Titrate/administer as needed to achieve RASS goal. Note: The CPOT goal should be achieved first with the use of the ordered analgesic medication prior to targeting RASS goal with the sedative., Titration Parameters: Standard Parameters, Indication: Sedation, Initiate infusion at: 0.2 mcg/kg/hr, Titrate infusion by: 0.1 mcg/kg/hr, Titrate every: 30 minutes, To maintain a: RASS score of 0 to -1 = Alert and Calm to Drowsy, Notify physician if: Unachievable RASS goal despite max dose, Contact physician for: significant hemodynamic changes, inability to reach RASS goals despite maximal dosage. Rate Change 03/08/2020 11:57 AM CDT 0.06 mcg/kg/hr 1.82 mL/hr Rate Change 03/08/2020 11:33 AM CDT 0.08 mcg/kg/hr 2.42 mL /hr $ New Bag/Syringe 03/08/2020 7:24 AM CDT 1 mcg/kg/hr 30.3 mL/hr enoxaparin (LOVENOX) injection 120 mg 120 mg (rounded from 121.2 mg = 1 mg/kg ? 121.2 kg), Subcutaneous, EVERY 12 HOURS, 4 doses, First dose on Fri03/03/20 at 2100, Last dose on Fri03/05/20 at 0900, (for prefilled syringes) do not expel air bubble from the syringe prior to the injection Remind Patient to not rub injection site. Could cause hematoma. $ Given 03/04/2020 8:38 PM CDT 120 mg Abdominal Tissue $ Given 03/04/2020 10:30 AM CDT 120 mg A bdominal Tissue $ Given 03/03/2020 8:09 PM CDT 120 mg Ab dominal Tissue enoxaparin (LOVENOX) injection 120 mg 120 mg, Subcutaneous, EVERY 12 HOURS, First dose on Fri03/07/20 at 0900, Until Discontinued, (for prefilled syringes) do not expel air bubble from the syringe prior to the injection Remind Patient to not rub injection site. Could cause hematoma. $ Given 04/05/2020 9:34 AM CDT 120 mg Abdominal Tissue $ Given 04/04/2020 9:21 PM CDT 120 mg Ab dominal Tissue $ Given 04/04/2020 8:04 AM CDT 120 mg Ab dominal Tissue enoxaparin (LOVENOX) injection 40 mg 40 mg, Subcutaneous, DAILY, First dose on Fri03/06/20 at 1845, Until Discontinued, (for prefilled syringes) do not expel air bubble from the syringe prior to the injection Remind Patient to not rub injection site. Could cause hematoma. $ Given 03/06/2020 7:01 PM CDT 40 mg Abdominal Tissue escitalopram (LEXAPRO) tablet 10 mg 10 mg, Oral, DAILY, First dose on Fri02/26/20 at 0900, Until Discontinued $ Given 03/06/2020 9:10 AM CDT 10 mg $ Given 03/05/2020 9:05 AM CDT 10 mg $ Given 03/04/2020 10:26 AM CDT 10 mg escitalopram (LEXAPRO) tablet 10 mg 10 mg, Oral, DAILY, First dose on Fri03/10/20 at 1230, Until Discontinued $ Given 04/05/2020 9:34 AM CDT 10 mg $ Given 04/04/2020 8:05 AM CDT 10 mg $ Given 04/03/2020 8:36 AM CDT 10 mg fentaNYL (PF) (SUBLIMAZE) injection 100 mcg 100 mcg, Intravenous, ONCE PRN, for BMBx, 1 dose, Starting on Fri03/03/20 at 1223, Until Fri03/03/20 at 1347 $ Given 03/03/2020 1:47 PM CDT 100 mcg fentaNYL (PF) (SUBLIMAZE) injection 50 mcg 50 mcg, Intravenous, ONCE PRN, prior to LP, 1 dose, Starting on Fri02/29/20 at 0931, Until Fri03/01/20 at 0931, Prior to LP $ Given 03/01/2020 9:31 AM CDT 50 mcg Right Arm furosemide (LASIX) injection 20 mg 20 mg, Intravenous, ONCE, 1 dose, On Fri03/10/20 at 1330 $ Given 03/10/2020 1:24 PM CDT 20 mg gadobutrol (GADAVIST) injection Intravenous, CONTRAST ONCE, Starting on Fri02/26/20 at 2148, Until Fri02/28/20 at 2147 $ Given - Contrast 02/26/2020 9:37 PM CDT 10 mL ibuprofen (MOTRIN) tablet 600 mg 600 mg, Oral, ONCE, 1 dose, On Fri03/03/20 at 0230, Maximum allowable amount = 3200 mg / 24 hours. $ Given 03/03/2020 2:35 AM CDT 600 mg immune globulin (GAMUNEX-C) 10 % 10 g 10 g, at 0-999 mL/hr, Intravenous, CONTINUOUS, Starting on Fri03/14/20 at 2230, Until Fri03/14/20 at 2329, Actual Weight for Rate calculation: Wt 117 kg (257 lb 15 oz) Initiate IVIG at 0.5 mg/kg/min (35 mL/hr with VTBI: 17.55 mL) for 30 minutes. If tolerated, increase rate to 1 mg/kg/min (70 mL/hr with VTBI: 35.1 mL ) for 30 min. If tolerated, increase rate to 2 mg/kg/min (140 mL/hr with VTBI: 70.2 mL ) for 30 min. If tolerated, increase rate to 4 mg/kg/min (281 mL/hr with VTBI: 140.4 mL ) for 30 min. If tolerated, increase rate to 8 mg/kg/min (562 mL/hr with VTBI: 280.8 mL or until bag contents completely infused) See IVIG Monitoring order in Nursing Communications for monitoring instructions. Rate Change 03/14/2020 10:44 PM CDT 281 mL/hr Rate Change 03/14/2020 10:11 PM CDT 140 mL/hr $ New Bag/Syringe 03/14/2020 9:44 PM CDT 10 g 24.57 mL/hr immune globulin (GAMUNEX-C) 10 % 10 g 10 g, at 0-999 mL/hr, Intravenous, CONTINUOUS, Starting on Fri04/03/20 at 1500, Until Fri04/03/20 at 1559, Actual Weight for Rate calculation: Wt 113.7 kg (250 lb 10.6 oz) Initiate IVIG at 0.5 mg/kg/min (34 mL/hr with VTBI: 17.06 mL) for 30 minutes. If tolerated, increase rate to 1 mg/kg/min (68 mL/hr with VTBI: 34.11 mL ) for 30 min. If tolerated, increase rate to 2 mg/kg/min (136 mL/hr with VTBI: 68.22 mL ) for 30 min. If tolerated, increase rate to 4 mg/kg/min (273 mL/hr with VTBI: 136.44 mL ) for 30 min. If tolerated, increase rate to 8 mg/kg/min (546 mL/hr with VTBI: 272.88 mL or until bag contents completely infused) See IVIG Monitoring order in Nursing Communications for monitoring instructions. Rate Change 04/03/2020 3:49 PM CDT 136 mL/hr $ New Bag/Syringe 04/03/2020 3:25 PM CDT 10 g 68 mL/ hr immune globulin (GAMUNEX-C) 10 % 10 g 10 g, at 0-999 mL/hr, Intravenous, CONTINUOUS, Starting on Fri04/03/20 at 1600, Until Fri04/03/20 at 1659, Actual Weight for Rate calculation: Wt 113.7 kg (250 lb 10.6 oz) Initiate IVIG at 0.5 mg/kg/min (34 mL/hr with VTBI: 17.06 mL) for 30 minutes. If tolerated, increase rate to 1 mg/kg/min (68 mL/hr with VTBI: 34.11 mL ) for 30 min. If tolerated, increase rate to 2 mg/kg/min (136 mL/hr with VTBI: 68.22 mL ) for 30 min. If tolerated, increase rate to 4 mg/kg/min (273 mL/hr with VTBI: 136.44 mL ) for 30 min. If tolerated, increase rate to 8 mg/kg/min (546 mL/hr with VTBI: 272.88 mL or until bag contents completely infused) See IVIG Monitoring order in Nursing Communications for monitoring instructions. $ New Bag/Syringe 04/03/2020 4:41 PM CDT 10 g 273 mL/hr immune globulin (GAMUNEX-C) 10 % 10 g 10 g, at 0-999 mL/hr, Intravenous, CONTINUOUS, Starting on Fri04/03/20 at 1700, Until Fri04/03/20 at 1759, Actual Weight for Rate calculation: Wt 113.7 kg (250 lb 10.6 oz) Initiate IVIG at 0.5 mg/kg/min (34 mL/hr with VTBI: 17.06 mL) for 30 minutes. If tolerated, increase rate to 1 mg/kg/min (68 mL/hr with VTBI: 34.11 mL ) for 30 min. If tolerated, increase rate to 2 mg/kg/min (136 mL/hr with VTBI: 68.22 mL ) for 30 min. If tolerated, increase rate to 4 mg/kg/min (273 mL/hr with VTBI: 136.44 mL ) for 30 min. If tolerated, increase rate to 8 mg/kg/min (546 mL/hr with VTBI: 272.88 mL or until bag contents completely infused) See IVIG Monitoring order in Nursing Communications for monitoring instructions. Rate Change 04/03/2020 5:20 PM CDT 546 mL/hr $ New Bag/Syringe 04/03/2020 5:12 PM CDT 10 g 273 mL /hr immune globulin (GAMUNEX-C) 10 % 20 g 20 g, at 0-999 mL/hr, Intravenous, CONTINUOUS, Starting on Fri03/14/20 at 2330, Until Fri03/15/20 at 0029, Actual Weight for Rate calculation: Wt 117 kg (257 lb 15 oz) Initiate IVIG at 0.5 mg/kg/min (35 mL/hr with VTBI: 17.55 mL) for 30 minutes. If tolerated, increase rate to 1 mg/kg/min (70 mL/hr with VTBI: 35.1 mL ) for 30 min. If tolerated, increase rate to 2 mg/kg/min (140 mL/hr with VTBI: 70.2 mL ) for 30 min. If tolerated, increase rate to 4 mg/kg/min (281 mL/hr with VTBI: 140.4 mL ) for 30 min. If tolerated, increase rate to 8 mg/kg/min (562 mL/hr with VTBI: 280.8 mL or until bag contents completely infused) See IVIG Monitoring order in Nursing Communications for monitoring instructions. Rate Change 03/14/2020 11:07 PM CDT 140 mL/hr Rate Change 03/14/2020 11:06 PM CDT 200 mL/hr $ New Bag/Syringe 03/14/2020 11:02 PM CDT 20 g 281 m L/hr immune globulin (GAMUNEX-C) 10 % 5 g 5 g, at 0-999 mL/hr, Intravenous, CONTINUOUS, Starting on Fri03/14/20 at 2030, Until Fri03/14/20 at 2229, Actual Weight for Rate calculation: Wt 117 kg (257 lb 15 oz) Initiate IVIG at 0.5 mg/kg/min (35 mL/hr with VTBI: 17.55 mL) for 30 minutes. If tolerated, increase rate to 1 mg/kg/min (70 mL/hr with VTBI: 35.1 mL ) for 30 min. If tolerated, increase rate to 2 mg/kg/min (140 mL/hr with VTBI: 70.2 mL ) for 30 min. If tolerated, increase rate to 4 mg/kg/min (281 mL/hr with VTBI: 140.4 mL ) for 30 min. If tolerated, increase rate to 8 mg/kg/min (562 mL/hr with VTBI: 280.8 mL or until bag contents completely infused) See IVIG Monitoring order in Nursing Communications for monitoring instructions. $ New Bag/Syringe 03/14/2020 9:13 PM CDT 5 g 35 mL/hr immune globulin (GAMUNEX-C) 10 % 5 g 5 g, at 0-999 mL/hr, Intravenous, CONTINUOUS, Starting on Fri04/03/20 at 1300, Until Fri04/03/20 at 1459, Dose 0.4mg/kg using IBW Actual Weight for Rate calculation: Wt 113.7 kg (250 lb 10.6 oz) Initiate IVIG at 0.5 mg/kg/min (34 mL/hr with VTBI: 17.06 mL) for 30 minutes. If tolerated, increase rate to 1 mg/kg/min (68 mL/hr with VTBI: 34.11 mL ) for 30 min. If tolerated, increase rate to 2 mg/kg/min (136 mL/hr with VTBI: 68.22 mL ) for 30 min. If tolerated, increase rate to 4 mg/kg/min (273 mL/hr with VTBI: 136.44 mL ) for 30 min. If tolerated, increase rate to 8 mg/kg/min (546 mL/hr with VTBI: 272.88 mL or until bag contents completely infused) See IVIG Monitoring order in Nursing Communications for monitoring instructions. $ New Bag/Syringe 04/03/2020 2:22 PM CDT 5 g 34 mL/hr iopamidol (ISOVUE 370) 76 % contrast Intravenous, CONTRAST ONCE, Starting on 02/26/20 at 1559, Until 02/28/20 at 1558 $ Given - Contrast 02/26/2020 4:40 PM CDT 100 mL iopamidol (ISOVUE 370) 76 % contrast Intravenous, CONTRAST ONCE, Starting on Of[place] 03/02/20 at 2154, Until 03/04/20 at 2153 $ Given - Contrast 03/02/2020 9:57 PM CDT 100 mL lidocaine (XYLOCAINE) 1 % injection Subcutaneous, ONCE, 1 dose, On Of[place] 03/02/20 at 0900 $ Given 03/01/2020 10:23 AM CDT 2 mL See Comments loratadine (CLARITIN) tablet 10 mg 10 mg, Oral, DAILY, First dose on Fri04/04/20 at 1030, Until Discontinued $ Given 04/05/2020 9:35 AM CDT 10 mg $ Given 04/04/2020 11:47 AM CDT 10 mg LORazepam (ATIVAN) injection 0.5 mg 0.5 mg, Intravenous, ONCE PRN, Anxiety, Prior to LP, 1 dose, Starting on Fri02/29/20 at 0931, Until Fri03/01/20 at 0931, Prior to LP $ Given 03/01/2020 9:31 AM CDT 0.5 mg LORazepam (ATIVAN) injection 0.5 mg 0.5 mg, Intravenous, ONCE, 1 dose, On [place] 03/02/20 at 1030 $ Given 03/02/2020 12:37 PM CDT 0.5 mg LORazepam (ATIVAN) injection 0.5 mg 0.5 mg, Intravenous, ONCE PRN, Anxiety, for BMBx, 1 dose, Starting on Fri03/03/20 at 1223, Until Fri03/03/20 at 1348 $ Given 03/03/2020 1:48 PM CDT 0.5 mg LORazepam (ATIVAN) injection 1 mg 1 mg, Intravenous, ONCE, 1 dose, On 02/26/20 at 2045, For MRI $ Given 02/26/2020 8:46 PM CDT 1 mg LORazepam (ATIVAN) injection 1 mg 1 mg, Intravenous, AT BEDTIME PRN, Anxiety, Starting on Fri02/28/20 at 2000, Until Fri03/06/20 at 2320 $ Given 03/05/2020 8:59 PM CDT 1 mg $ Given 03/04/2020 8:41 PM CDT 1 mg $ Given 03/03/2020 9:53 PM CDT 1 mg LORazepam (ATIVAN) injection 1 mg 1 mg, Intravenous, ONCE, 1 dose, On Fri03/05/20 at 1015 $ Given 03/05/2020 9:46 AM CDT 1 mg LORazepam (ATIVAN) injection ADS Med 1 dose, Starting on 02/26/20 at 2031, Until 02/26/20 at 2045, Martha Saeed: cabinet override LORazepam (ATIVAN) tablet 0.5 mg 0.5 mg, Oral, ONCE, 1 dose, On 03/15/20 at 0115 $ Given 03/15/2020 1:21 AM CDT 0.5 mg magnesium sulfate 2 g in 50 mL bolus 2 g, at 25 mL/hr, Administer over 120 Minutes, Intravenous, PRN, Hypomagnesemia, Starting on Fri02/25/20 at 1527, Until Fri04/05/20 at 2216, If magnesium less than 1.4; give 2gm Mag sulfate. If magnesium 1.1 or less, give an additional 2gm mag sulfate (for total of 4gm). May give magnesium at a rate of 2gm/hr. magnesium sulfate 2 g in 50 mL bolus 2 g, at 25 mL/hr, Administer over 120 Minutes, Intravenous, ONCE, 1 dose, On [facility] 03/09/20 at 0100, Infuse at 1 gm/hr $ New Bag/Syringe 03/09/2020 12:51 AM CDT 2 g 25 mL/hr meropenem (MERREM) 1,000 mg in sterile water (PF) 20 mL syringe 1,000 mg, Intravenous, EVERY 8 HOURS, First dose on 03/04/20 at 1015, Until Discontinued, Infuse over 3-5 minutes. Dilute 1g vial with 20 mL to final concentration 50 mg/mL, Indication for meropenem therapy: Worsening/not improving on Zosyn or Cefepime $ Given 03/08/2020 10:26 AM CDT 1,000 mg $ Given 03/08/2020 2:07 AM CDT 1,000 mg $ Given 03/07/2020 6:15 PM CDT 1,000 mg methylPREDNISolone sod succ (SOLU-Medrol) injection 20 mg 20 mg, Intravenous, EVERY 6 HOURS, First dose on 03/11/20 at 1800, Until Discontinued $ Given 03/17/2020 12:06 PM CDT 20 mg $ Given 03/17/2020 5:54 AM CDT 20 mg $ Given 03/16/2020 11:47 PM CDT 20 mg methylPREDNISolone sod succ (SOLU-Medrol) injection 80 mg 80 mg, Intravenous, ONCE, 1 dose, On 03/11/20 at 1145 $ Given 03/11/2020 12:52 PM CDT 80 mg ondansetron (disintegrating) (ZOFRAN ODT) tablet 4 mg 4 mg, Oral, EVERY 8 HOURS PRN, Nausea/Vomiting, Starting on 03/04/20 at 1412, Until Fri04/05/20 at 2216, Allow tablet to dissolve on the tongue ondansetron (ZOFRAN) injection 4 mg 4 mg, Intravenous, EVERY 8 HOURS PRN, Nausea/Vomiting, Starting on 03/04/20 at 1412, Until Fri04/05/20 at 2216, Administer over 2 to 5 minutes. oxyCODONE (immediate release) (ROXICODONE) tablet 5 mg 5 mg, Oral, EVERY 4 HOURS PRN, Moderate Pain, Starting on 02/26/20 at 1610, Until Fri03/06/20 at 2320 $ Given 03/05/2020 8:58 PM CDT 5 mg $ Given 03/05/2020 9:46 AM CDT 5 mg $ Given 03/04/2020 8:41 PM CDT 5 mg oxyCODONE (immediate release) (ROXICODONE) tablet 5 mg 5 mg, Oral, ONCE, 1 dose, On Fri03/08/20 at 2130 $ Given 03/08/2020 9:30 PM CDT 5 mg oxyCODONE (immediate release) (ROXICODONE) tablet 5 mg 5 mg, Oral, EVERY 6 HOURS PRN, Severe Pain, Starting on [facility] 03/09/20 at 2129, Until Fri03/10/20 at 0745 $ Given 03/09/2020 9:45 PM CDT 5 mg oxyCODONE (immediate release) (ROXICODONE) tablet 5 mg 5 mg, Oral, EVERY 4 HOURS PRN, Severe Pain, Starting on Fri03/24/20 at 0826, Until Fri04/05/20 at 2216 $ Given 03/24/2020 8:57 AM CDT 5 mg oxyCODONE (immediate release) (ROXICODONE) tablet ADS Med 1 dose, Starting on 02/26/20 at 1623, Until 02/26/20 at 1620, Annika Baldwin: markinekt override pantoprazole (PROTONIX) injection 40 mg 40 mg, Intravenous, DAILY, First dose on 03/06/20 at 2100, Until Discontinued, For every 40 mg of pantoprazole mix with 10 mL Normal Saline (final concentration = 4 mg/mL). Inject SLOWLY over 2 min. $ Given 03/08/2020 8:00 AM CDT 40 mg $ Given 03/07/2020 8:43 AM CDT 40 mg $ Given 03/06/2020 10:10 PM CDT 40 mg pantoprazole EC (PROTONIX) tablet 40 mg 40 mg, Oral, DAILY, First dose on Fri03/09/20 at 0900, Until Discontinued, Do not crush, chew, or cut in half. $ Given 04/05/2020 9:35 AM CDT 40 mg $ Given 04/04/2020 8:05 AM CDT 40 mg $ Given 04/03/2020 8:35 AM CDT 40 mg penicillin V potassium (VEETIDS) solution 250 mg 250 mg, Oral, EVERY 12 HOURS, First dose on Fri03/08/20 at 2115, Until Discontinued, Shake well before using Refrigerate., Indication for anti-infective therapy: Chronic prophylaxis $ Given 04/03/2020 1:32 AM CDT 250 mg $ Given 04/02/2020 7:47 AM CDT 250 mg $ Given 04/01/2020 8:27 PM CDT 250 mg penicillin v potassium (VEETIDS) tablet 250 mg 250 mg, Oral, EVERY 12 HOURS, First dose on Fri02/25/20 at 2100, Until Discontinued, Indication for anti-infective therapy: Chronic prophylaxis $ Given 02/26/2020 8:03 AM CDT 250 mg penicillin v potassium (VEETIDS) tablet 500 mg 500 mg, Oral, EVERY 12 HOURS, First dose on Fri04/03/20 at 1200, Until Discontinued, Indication for anti-infective therapy: Chronic prophylaxis $ Given 04/05/2020 9:34 AM CDT 500 mg $ Given 04/04/2020 9:21 PM CDT 500 mg $ Given 04/04/2020 8:04 AM CDT 500 mg penicillin v potassium (VEETIDS) tablet 500 mg 500 mg, Oral, EVERY 12 HOURS, First dose (after last modification) on Fri04/05/20 at 1730, Until Discontinued, Indication for anti-infective therapy: Chronic prophylaxis $ Given 04/05/2020 5:21 PM CDT 500 mg perflutren Lipid Microsphere (DEFINITY) injection SUSP 0.5 mL 0.5 mL, Intravenous, INTRA-PROCEDURE MULTIPLE, 6 doses, Starting on Fri03/03/20 at 1731, Until Fri03/06/20 at 2037, For Echo Procedure - Per Protocol Give slowly Shake well before using. $ Given 03/03/2020 5:48 PM CDT 0.5 mL potassium chloride 40 mEq in 0.9% NaCl 270 mL bolus 40 mEq, at 67.5 mL/hr, Administer over 4 Hours, Intravenous, PRN, hypokalemia, Starting on 02/28/20 at 0025, Until Fri02/28/20 at 0254, For potassium less than 3.5 mmol/L $ New Bag/Syringe 02/28/2020 1:14 AM CDT 40 mEq 67.5 mL/hr potassium chloride ER (KLOR-CON M) tablet 40 mEq 40 mEq, Oral, ONCE, 1 dose, On [facility] 03/09/20 at 0100, Do not crush or chew. $ Given 03/09/2020 12:57 AM CDT 40 mEq potassium chloride ER (KLOR-CON M) tablet 40 mEq 40 mEq, Oral, ONCE, 1 dose, On [facility] 03/09/20 at 0730, Do not crush or chew. $ Given 03/09/2020 8:41 AM CDT 40 mEq predniSONE (DELTASONE) tablet 100 mg 100 mg, Oral, DAILY WITH BREAKFAST, 1 dose, First dose on [facility] 03/18/20 at 0730 $ Given 03/18/2020 7:46 AM CDT 100 mg predniSONE (DELTASONE) tablet 20 mg 20 mg, Oral, DAILY WITH BREAKFAST, First dose (after last modification) on 04/03/20 at 0730, Until Discontinued $ Given 04/05/2020 7:21 AM CDT 20 mg $ Given 04/04/2020 6:42 AM CDT 20 mg $ Given 04/03/2020 8:35 AM CDT 20 mg predniSONE (DELTASONE) tablet 30 mg 30 mg, Oral, DAILY WITH BREAKFAST, First dose (after last modification) on [facility] 03/30/20 at 0730, Until Discontinued $ Given 04/02/2020 7:47 AM CDT 30 mg $ Given 04/01/2020 8:58 AM CDT 30 mg $ Given 03/31/2020 7:48 AM CDT 30 mg predniSONE (DELTASONE) tablet 40 mg 40 mg, Oral, DAILY WITH BREAKFAST, First dose (after last modification) on Fri03/26/20 at 0730, Until Discontinued $ Given 03/29/2020 8:34 AM CDT 40 mg $ Given 03/28/2020 8:13 AM CDT 40 mg $ Given 03/27/2020 8:33 AM CDT 40 mg predniSONE (DELTASONE) tablet 50 mg 50 mg, Oral, DAILY WITH BREAKFAST, First dose (after last modification) on [facility] 03/23/20 at 0730, Until Discontinued $ Given 03/25/2020 7:53 AM CDT 50 mg $ Given 03/24/2020 7:43 AM CDT 50 mg $ Given 03/23/2020 7:53 AM CDT 50 mg predniSONE (DELTASONE) tablet 60 mg 60 mg, Oral, DAILY WITH BREAKFAST, 1 dose, First dose on 03/20/20 at 0730 $ Given 03/20/2020 8:26 AM CDT 60 mg predniSONE (DELTASONE) tablet 60 mg 60 mg, Oral, DAILY WITH BREAKFAST, First dose on Fri03/21/20 at 0730, Until Discontinued $ Given 03/22/2020 8:05 AM CDT 60 mg $ Given 03/21/2020 7:58 AM CDT 60 mg predniSONE (DELTASONE) tablet 80 mg 80 mg, Oral, DAILY WITH BREAKFAST, 1 dose, First dose on 03/19/20 at 0730 $ Given 03/19/2020 7:32 AM CDT 80 mg predniSONE (DELTASONE) tablet 90 mg 90 mg, Oral, DAILY WITH BREAKFAST, First dose on Fri03/05/20 at 1030, Until Discontinued $ Given 03/05/2020 11:07 AM CDT 90 mg predniSONE (DELTASONE) tablet 90 mg 90 mg, Oral, DAILY WITH BREAKFAST, First dose on 03/05/20 at 1215, Until Discontinued $ Given 03/06/2020 9:10 AM CDT 90 mg predniSONE (DELTASONE) tablet 90 mg 90 mg, Enteral Tube, DAILY WITH BREAKFAST, First dose (after last modification) on Fri03/07/20 at 0730, Until Discontinued $ Given 03/08/2020 7:59 AM CDT 90 mg NG Tube $ Given 03/07/2020 9:34 AM CDT 90 mg NG Tube prochlorperazine (COMPAZINE) injection 10 mg 10 mg, Intravenous, EVERY 6 HOURS PRN, Nausea/Vomiting, Starting on 03/04/20 at 1411, Until 04/05/20 at 2216, Max intravenous rate = 5 mg/min prochlorperazine (COMPAZINE) tablet 5 mg 5 mg, Oral, EVERY 8 HOURS PRN, Nausea/Vomiting, Starting on 03/04/20 at 1411, Until Fri04/05/20 at 2216 propofol (DIPRIVAN) infusion 0-25 mcg/kg/min ? 121.2 kg (0-18.18 mL/hr), Intravenous, CONTINUOUS, Starting on 03/06/20 at 1515, Until Fri03/08/20 at 1812, Vial and Tubing should be changed and/or discarded every 12 hours., Titration Parameters: Custom Parameters, Indication: Sedation, Initiate infusion at: 50 mcg/kg/min, Titrate infusion by: 5 mcg/kg/min, Titrate every: 2 minutes, To maintain a: RASS score of -3 = Moderate sedation, Notify physician if: Unachievable RASS goal despite max dose Rate Change 03/08/2020 10:40 AM CDT 10 mcg/kg/min 7.27 mL/hr Rate Change 03/08/2020 10:16 AM CDT 15 mcg/kg/min 10.91 mL /hr $ New Bag/Syringe 03/08/2020 9:33 AM CDT 20 mcg/kg/min 14. 54 mL/hr remdesivir 100 mg in 0.9% NaCl IV 250 mL infusion 100 mg, at 250 mL/hr, Intravenous, EVERY 24 HOURS, 4 doses, First dose on [facility] 03/09/20 at 1300, Last dose on Fri03/12/20 at 1300 $ New Bag/Syringe 03/12/2020 2:53 PM CDT 100 mg 250 mL/hr $ New Bag/Syringe 03/11/2020 1:10 PM CDT 100 mg 250 mL /hr $ New Bag/Syringe 03/10/2020 1:07 PM CDT 100 mg 250 mL /hr remdesivir 200 mg in 0.9% NaCl IV 250 mL infusion 200 mg, at 250 mL/hr, Intravenous, ONCE, 1 dose, On Fri03/08/20 at 1300 $ New Bag/Syringe 03/08/2020 3:36 PM CDT 200 mg 250 mL/hr rOPINIRole (REQUIP) tablet 0.25 mg 0.25 mg, Oral, AT BEDTIME, First dose on Fri03/10/20 at 2100, Until Discontinued $ Given 04/04/2020 9:21 PM CDT 0.25 mg $ Given 04/03/2020 9:46 PM CDT 0.25 mg $ Given 04/02/2020 9:55 PM CDT 0.25 mg rOPINIRole (REQUIP) tablet 0.5 mg 0.5 mg, Oral, AT BEDTIME, First dose on Fri02/25/20 at 2100, Until Discontinued $ Given 03/05/2020 8:58 PM CDT 0.5 mg $ Given 03/04/2020 8:38 PM CDT 0.5 mg $ Given 03/03/2020 8:09 PM CDT 0.5 mg saline nasal spray (OCEAN; BABY AYR) 0.65 % nasal spray 2 spray 2 spray, Each Nostril, EVERY 2 HOURS PRN, Dry Nose, Starting on Fri03/18/20 at 2117, Until Fri04/05/20 at 2216 $ Given 03/18/2020 11:40 PM CDT 2 sprays sulfamethoxazole-trimethoprim (BACTRIM DS; SEPTRA DS) 800-160 MG tablet 1 tablet 1 tablet, Oral, EVERY FRI, FRI AND FRI, 30 doses, First dose (after last modification) on Fri02/25/20 at 1700, Last dose on Fri05/03/20 at 1700, Indication for anti-infective therapy: Chronic prophylaxis $ Given 03/03/2020 5:54 PM CDT 1 tablet $ Given 03/01/2020 8:25 PM CDT 1 tablet $ Given 02/28/2020 5:24 PM CDT 1 tablet sulfamethoxazole-trimethoprim (BACTRIM DS; SEPTRA DS) 800-160 MG tablet 1 tablet 1 tablet, Oral, EVERY FRI, FRI AND FRI, First dose on Fri03/13/20 at 1700, Until Discontinued, Indication for anti-infective therapy: Chronic prophylaxis $ Given 04/05/2020 5:21 PM CDT 1 tablet $ Given 04/03/2020 4:43 PM CDT 1 tablet $ Given 03/31/2020 5:28 PM CDT 1 tablet sulfamethoxazole-trimethopri m (BACTRIM) 160 mg in dextrose 5 % 260 mL IVPB 160 mg, at 260 mL/hr, Intravenous, EVERY FRI, FRI AND FRI, First dose on Fri03/06/20 at 1900, Until Discontinued, Indication for anti-infective therapy: Chronic prophylaxis $ New Bag/Syringe 03/10/2020 6:25 PM CDT 160 mg 260 mL/hr $ New Bag/Syringe 03/08/2020 5:31 PM CDT 160 mg 260 mL /hr Current Rate 03/06/2020 8:42 PM CDT 260 mL/hr thiamine (VITAMIN B-1) tablet 200 mg 200 mg, Oral, EVERY 12 HOURS, First dose (after last modification) on Fri03/11/20 at 1215, Until Discontinued $ Given 04/05/2020 9:35 AM CDT 200 mg $ Given 04/04/2020 9:21 PM CDT 200 mg $ Given 04/04/2020 8:05 AM CDT 200 mg traMADol (ULTRAM) tablet 50 mg 50 mg, Oral, EVERY 8 HOURS, First dose (after last modification) on Fri03/10/20 at 1400, Until Discontinued $ Given 04/05/2020 5:21 PM CDT 50 mg $ Given 04/05/2020 9:34 AM CDT 50 mg $ Given 04/05/2020 12:37 AM CDT 50 mg valACYclovir (VALTREX) tablet 500 mg 500 mg, Oral, 2 TIMES DAILY, 200 doses, First dose on Fri02/25/20 at 2100, Last dose on 06/04/20 at 0900, Indication for anti-infective therapy: Chronic prophylaxis $ Given 03/06/2020 9:15 AM CDT 500 mg $ Given 03/05/2020 8:58 PM CDT 500 mg $ Given 03/05/2020 9:05 AM CDT 500 mg valACYclovir (VALTREX) tablet 500 mg 500 mg, Enteral Tube, 2 TIMES DAILY, 180 doses, First dose (after last modification) on 03/06/20 at 2100, Last dose on 06/04/20 at 0900, Indication for anti-infective therapy: Chronic prophylaxis $ Given 03/25/2020 7:53 AM CDT 500 mg G Tube $ Given 03/24/2020 8:20 PM CDT 500 mg G Tube $ Given 03/24/2020 7:43 AM CDT 500 mg G Tube valACYclovir (VALTREX) tablet 500 mg 500 mg, Oral, 2 TIMES DAILY, 142 doses, First dose (after last modification) on Fri03/25/20 at 2100, Last dose on 06/04/20 at 0900, Indication for anti-infective therapy: Chronic prophylaxis $ Given 04/05/2020 9:35 AM CDT 500 mg $ Given 04/04/2020 9:21 PM CDT 500 mg $ Given 04/04/2020 8:05 AM CDT 500 mg vancomycin (VANCOCIN) 1,750 mg in 535 mL IVPB 1,750 mg, at 305.71 mL/hr, Intravenous, EVERY 12 HOURS, First dose on 02/26/20 at 1800, Until Discontinued, Indication for anti-infective therapy: Suspected infection, Site of anti-infective therapy: Blood $ New Bag/Syringe 03/07/2020 9:43 PM CDT 1,750 mg 305.71 mL/hr $ New Bag/Syringe 03/07/2020 12:49 PM CDT 1,750 mg 305.7 1 mL/hr $ New Bag/Syringe 03/06/2020 10:03 PM CDT 1,750 mg 305.7 1 mL/hr vitamin D3-cholecalciferol (CHOLECALCIFEROL) 25 MCG (1000 UNITS) tablet 2,000 Units 2,000 Units, Oral, DAILY, First dose on 03/11/20 at 1215, Until Discontinued, 1000 units = 25 mcg $ Given 04/05/2020 9:34 AM CDT 2,000 Unit s $ Given 04/04/2020 8:05 AM CDT 2,000 Units $ Given 04/03/2020 8:35 AM CDT 2,000 Units zinc gluconate tablet 50 mg 50 mg, Oral, DAILY, First dose on 03/11/20 at 1200, Until Discontinued $ Given 03/29/2020 8:33 AM CDT 50 mg $ Given 03/28/2020 8:13 AM CDT 50 mg $ Given 03/27/2020 8:33 AM CDT 50 mg documented in this encounter Active and Recently Administered Medications Times are shown in CDT. Scheduled Medication Order 04/03/2020 04/04/2020 04/05/2020 0.9% NaCl injection 3 mL(Linked Group 1) 3 mL, Intracatheter, EVERY 8 HOURS, First dose on 03/06/20 at 2200, Until Discontinued, Flush peripheral IV catheter with 3 mL of normal saline every 8 hours. 0643 (Not Administered - Provider: Darcy Lutz RN - Reason: Patient sleeping)1424 ($ Given - Provider: Izzy Garcia RN)2146 ($ Given - Provider: Kesha Bah RN) 0502 ($ Given - Provider: Kesha Bah RN)1547 ($ Given - Provider: Izzy Garcia RN)2121 (Canceled Entry - Provider: Fatemeh Bolaños RN) 0546 (Canceled Entry - Provider: Fatemeh Bolaños RN)1721 ($ Given - Provider: Darwin Serrano RN) albuterol HFA (PROVENTIL;VENTOLIN;ME OAIR) 108 (90 Base) MCG/ACT inhaler 2 puff 2 puff, Inhalation, EVERY 4 HOURS, First dose on [facility] 03/02/20 at 2000, Until Discontinued, Shake well before using. WASTE DISPOSAL INSTRUCTION: Send to Pharmacy for Disposal. 0000 (Due)0400 (Due)0837 ($ Given - Provider: Izzy Garcia RN)1227 ($ Given - Provider: Izzy Garcia RN)1553 ($ Given - Provider: Izzy Garcia RN)2147 ($ Given - Provider: Kesha Bah RN) 0052 ($ Given - Provider: Kesha Bah RN)0501 ($ Given - Provider: Kesha Bah RN)0809 ($ Given - Provider: Izzy Garcia RN)1146 ($ Given - Provider: Izzy Garcia RN)1548 ($ Given - Provider: Izzy Garcia RN)2120 ($ Given - Provider: Fatemeh Bolaños RN) 0037 ($ Given - Provider: Fatemeh Bolaños RN)0545 ($ Given - Provider: Fatemeh Bolaños RN)0935 ($ Given - Provider: Darwin Serrano RN)1200 ($ Given - Provider: Darwin Serrano RN)1600 ($ Given - Provider: Darwin Serrano RN)2000 (Due) artificial tears ophthalmic ointment Each Eye, EVERY 8 HOURS, First dose on 03/06/20 at 2200, Until Discontinued 0132 (Not Administered - Provider: Darcy Lutz RN - Reason: Medication not available - Comment: pharmacy notified)0644 (Not Administered - Provider: Darcy Lutz RN - Reason: Medication not available - Comment: pharmacy notified)1425 (Not Administered - Provider: Izzy Garcia RN - Reason: Refused-Patient)2150 (Not Administered - Provider: Kesha Bah RN - Reason: Refused-Patient) 0502 (Not Administered - Provider: Kesha Bah RN - Reason: Refused-Patient)1548 (Not Administered - Provider: Izzy Garcia RN - Reason: Refused-Patient)2120 ($ Given - Provider: Fatemeh Bolaños RN) 0545 (Not Administered - Provider: Fatemeh Bolaños RN - Reason: Medication not available)1720 (Not Administered - Provider: Darwin Serrano RN - Reason: Medication not available) budesonide-formoterol (SYMBICORT) 80-4.5 MCG/ACT inhaler 2 puff 2 puff, Inhalation, 2 TIMES DAILY, First dose on Fri03/22/20 at 0930, Until Discontinued, Rinse mouth after usage . WASTE DISPOSAL INSTRUCTION: Send to Pharmacy for Disposal. . 0837 ($ Given - Provider: Izzy Garcia RN)214 ($ Given - Provider: Kesha Bah RN) 0809 ($ Given - Provider: Izzy Garcia RN)2119 ($ Given - Provider: Fatemeh Bolaños RN) 0936 ($ Given - Provider: Darwin Serrano RN)2100 (Due) celecoxib (CeleBREX) capsule 100 mg (CANCELED) 100 mg, Oral, 2 TIMES DAILY, First dose (after last reorder) on Fri03/24/20 at 1200, Until Discontinued 0836 ($ Given - Provider: Izzy Garcia RN)214 ($ Given - Provider: Kesha Bah RN) 0805 ($ Given - Provider: Izzy Garcia RN)212 ($ Given - Provider: Fatemeh Bolaños RN) 0935 ($ Given - Provider: Darwin Serrano RN) enoxaparin (LOVENOX) injection 120 mg 120 mg, Subcutaneous, EVERY 12 HOURS, First dose on Fri03/07/20 at 0900, Until Discontinued, (for prefilled syringes) do not expel air bubble from the syringe prior to the injection Remind Patient to not rub injection site. Could cause hematoma. 0836 ($ Given - Provider: Izzy Garcia RN)214 ($ Given - Provider: Kesha Bah RN) 0804 ($ Given - Provider: Izzy Garcai RN)2121 ($ Given - Provider: Fatemeh Bolaños, ROSEMARY) 0934 ($ Given - Provider: Darwin Serrano RN)2100 (Due) escitalopram (LEXAPRO) tablet 10 mg 10 mg, Oral, DAILY, First dose on Fri03/10/20 at 1230, Until Discontinued 0836 ($ Given - Provider: Izzy Garcia RN) 0805 ($ Given - Provider: Izzy Garcia RN) 0934 ($ Given - Provider: Darwin Serrano RN) loratadine (CLARITIN) tablet 10 mg 10 mg, Oral, DAILY, First dose on Fri04/04/20 at 1030, Until Discontinued 1147 ($ Given - Provider: Izzy Garcia RN) 0935 ($ Given - Provider: Darwin Serrano RN) pantoprazole EC (PROTONIX) tablet 40 mg 40 mg, Oral, DAILY, First dose on Fri03/09/20 at 0900, Until Discontinued, Do not crush, chew, or cut in half. 0835 ($ Given - Provider: Izzy Garcia RN) 0805 ($ Given - Provider: Izzy Garcia RN) 0935 ($ Given - Provider: Darwin Serrano RN) penicillin V potassium (VEETIDS) solution 250 mg (CANCELED) 250 mg, Oral, EVERY 12 HOURS, First dose on Fri03/08/20 at 2115, Until Discontinued, Shake well before using Refrigerate., Indication for anti-infective therapy: Chronic prophylaxis 0132 ($ Given - Provider: Darcy Lutz RN)1120 (Not Administered - Provider: Izzy Garcia RN - Reason: Discontinued by physician) penicillin v potassium (VEETIDS) tablet 500 mg (CANCELED) 500 mg, Oral, EVERY 12 HOURS, First dose on Fri04/03/20 at 1200, Until Discontinued, Indication for anti-infective therapy: Chronic prophylaxis 1118 ($ Given - Provider: Izzy Garcia RN)2146 ($ Given - Provider: Kesha Bah RN) 0804 ($ Given - Provider: Izzy Garcia RN)2121 ($ Given - Provider: Fatemeh Bolaños RN) 0934 ($ Given - Provider: Darwin Serrano RN) penicillin v potassium (VEETIDS) tablet 500 mg 500 mg, Oral, EVERY 12 HOURS, First dose (after last modification) on Fri04/05/20 at 1730, Until Discontinued, Indication for anti-infective therapy: Chronic prophylaxis 1721 ($ Given - Provider: Darwin Serrano RN) predniSONE (DELTASONE) tablet 20 mg 20 mg, Oral, DAILY WITH BREAKFAST, First dose (after last modification) on Fri04/03/20 at 0730, Until Discontinued 0835 ($ Given - Provider: Izzy Garcia RN) 0642 ($ Given - Provider: Kesha Bah RN) 0721 ($ Given - Provider: Fatemeh Bolaños RN) rOPINIRole (REQUIP) tablet 0.25 mg 0.25 mg, Oral, AT BEDTIME, First dose on Fri03/10/20 at 2100, Until Discontinued 214 ($ Given - Provider: Kesha Bah RN) 212 ($ Given - Provider: Fatemeh Bolaños RN) 2100 (Due) sulfamethoxazole-trime thoprim (BACTRIM DS; SEPTRA DS) 800-160 MG tablet 1 tablet 1 tablet, Oral, EVERY FRI, FRI AND FRI, First dose on Fri03/13/20 at 1700, Until Discontinued, Indication for anti-infective therapy: Chronic prophylaxis 1643 ($ Given - Provider: Izzy Garcia RN) 1721 ($ Given - Provider: Darwin Serrano RN) thiamine (VITAMIN B-1) tablet 200 mg 200 mg, Oral, EVERY 12 HOURS, First dose (after last modification) on Fri03/11/20 at 1215, Until Discontinued 0836 ($ Given - Provider: Izzy Garcia RN)2146 ($ Given - Provider: Kesha Bah RN) 0805 ($ Given - Provider: Izzy Garcia RN)212 ($ Given - Provider: Fatemeh Bolaños RN) 0935 ($ Given - Provider: Darwin Serrano RN)2100 (Due) traMADol (ULTRAM) tablet 50 mg 50 mg, Oral, EVERY 8 HOURS, First dose (after last modification) on Fri03/10/20 at 1400, Until Discontinued 0136 ($ Given - Provider: Darcy Lutz RN)0836 ($ Given - Provider: Izzy Garcia RN)1643 ($ Given - Provider: Izzy Garcia RN) 0052 ($ Given - Provider: Kesha Bah RN)0805 ($ Given - Provider: Izzy Garcia RN)1807 ($ Given - Provider: Izzy Garcia RN) 0037 ($ Given - Provider: Fatemeh Bolaños, ROSEMARY)0934 ($ Given - Provider: Darwin Serrano RN)1721 ($ Given - Provider: Darwin Serrano RN) valACYclovir (VALTREX) tablet 500 mg 500 mg, Oral, 2 TIMES DAILY, 142 doses, First dose (after last modification) on 03/25/20 at 2100, Last dose on 06/04/20 at 0900, Indication for anti-infective therapy: Chronic prophylaxis 0835 ($ Given - Provider: Izzy Garcia RN)2146 ($ Given - Provider: Kesha Bah RN) 0805 ($ Given - Provider: Izzy Garcia RN)2121 ($ Given - Provider: Fatemeh Bolaños RN) 0935 ($ Given - Provider: Darwin Serrano RN)2100 (Due) vitamin D3-cholecalciferol (CHOLECALCIFEROL) 25 MCG (1000 UNITS) tablet 2,000 Units 2,000 Units, Oral, DAILY, First dose on 03/11/20 at 1215, Until Discontinued, 1000 units = 25 mcg 0835 ($ Given - Provider: Izzy Garcia RN) 0805 ($ Given - Provider: Izzy Garcia RN) 0934 ($ Given - Provider: Darwin Serrano RN) Continuous Medication Order 04/03/2020 04/04/2020 04/05/2020 immune globulin (GAMUNEX-C) 10 % 10 g ()(Linked Group 2) 10 g, at 0-999 mL/hr, Intravenous, CONTINUOUS, Starting on Fri04/03/20 at 1500, Until Fri04/03/20 at 1559, Actual Weight for Rate calculation: Wt 113.7 kg (250 lb 10.6 oz) Initiate IVIG at 0.5 mg/kg/min (34 mL/hr with VTBI: 17.06 mL) for 30 minutes. If tolerated, increase rate to 1 mg/kg/min (68 mL/hr with VTBI: 34.11 mL ) for 30 min. If tolerated, increase rate to 2 mg/kg/min (136 mL/hr with VTBI: 68.22 mL ) for 30 min. If tolerated, increase rate to 4 mg/kg/min (273 mL/hr with VTBI: 136.44 mL ) for 30 min. If tolerated, increase rate to 8 mg/kg/min (546 mL/hr with VTBI: 272.88 mL or until bag contents completely infused) See IVIG Monitoring order in Nursing Communications for monitoring instructions. 1525 ($ New Bag/Syringe - Provider: Izzy Garcia RN)1549 (Rate Change - Provider: Izzy Garcia RN) immune globulin (GAMUNEX-C) 10 % 10 g ()(Linked Group 2) 10 g, at 0-999 mL/hr, Intravenous, CONTINUOUS, Starting on Fri04/03/20 at 1600, Until Fri04/03/20 at 1659, Actual Weight for Rate calculation: Wt 113.7 kg (250 lb 10.6 oz) Initiate IVIG at 0.5 mg/kg/min (34 mL/hr with VTBI: 17.06 mL) for 30 minutes. If tolerated, increase rate to 1 mg/kg/min (68 mL/hr with VTBI: 34.11 mL ) for 30 min. If tolerated, increase rate to 2 mg/kg/min (136 mL/hr with VTBI: 68.22 mL ) for 30 min. If tolerated, increase rate to 4 mg/kg/min (273 mL/hr with VTBI: 136.44 mL ) for 30 min. If tolerated, increase rate to 8 mg/kg/min (546 mL/hr with VTBI: 272.88 mL or until bag contents completely infused) See IVIG Monitoring order in Nursing Communications for monitoring instructions. 1641 ($ New Bag/Syringe - Provider: Izzy Garcia RN) immune globulin (GAMUNEX-C) 10 % 10 g ()(Linked Group 2) 10 g, at 0-999 mL/hr, Intravenous, CONTINUOUS, Starting on Fri04/03/20 at 1700, Until Fri04/03/20 at 1759, Actual Weight for Rate calculation: Wt 113.7 kg (250 lb 10.6 oz) Initiate IVIG at 0.5 mg/kg/min (34 mL/hr with VTBI: 17.06 mL) for 30 minutes. If tolerated, increase rate to 1 mg/kg/min (68 mL/hr with VTBI: 34.11 mL ) for 30 min. If tolerated, increase rate to 2 mg/kg/min (136 mL/hr with VTBI: 68.22 mL ) for 30 min. If tolerated, increase rate to 4 mg/kg/min (273 mL/hr with VTBI: 136.44 mL ) for 30 min. If tolerated, increase rate to 8 mg/kg/min (546 mL/hr with VTBI: 272.88 mL or until bag contents completely infused) See IVIG Monitoring order in Nursing Communications for monitoring instructions. 1712 ($ New Bag/Syringe - Provider: Izzy Garcia RN)1720 (Rate Change - Provider: Izzy Garcia RN) immune globulin (GAMUNEX-C) 10 % 5 g ()(Linked Group 2) 5 g, at 0-999 mL/hr, Intravenous, CONTINUOUS, Starting on Fri04/03/20 at 1300, Until Fri04/03/20 at 1459, Dose 0.4mg/kg using IBW Actual Weight for Rate calculation: Wt 113.7 kg (250 lb 10.6 oz) Initiate IVIG at 0.5 mg/kg/min (34 mL/hr with VTBI: 17.06 mL) for 30 minutes. If tolerated, increase rate to 1 mg/kg/min (68 mL/hr with VTBI: 34.11 mL ) for 30 min. If tolerated, increase rate to 2 mg/kg/min (136 mL/hr with VTBI: 68.22 mL ) for 30 min. If tolerated, increase rate to 4 mg/kg/min (273 mL/hr with VTBI: 136.44 mL ) for 30 min. If tolerated, increase rate to 8 mg/kg/min (546 mL/hr with VTBI: 272.88 mL or until bag contents completely infused) See IVIG Monitoring order in Nursing Communications for monitoring instructions. 1422 ($ New Bag/Syringe - Provider: Izzy Garcia RN - Comment: late start waiting on infusion pump) PRN Medication Order 04/03/2020 04/04/2020 04/05/2020 0.9% NaCl injection 1-10 mL(Linked Group 1) 1-10 mL, Intracatheter, PRN, Other, peripheral line flush, Starting on Fri03/06/20 at 1758, Until Fri04/05/20 at 221, Flush peripheral IV catheter with 1-10 mL of normal saline before and after medications and prn to clear blood from the line or to verify patency. acetaminophen (TYLENOL) tablet 325 mg 325 mg, Oral, EVERY 4 HOURS PRN, Fever, Moderate Pain, Severe Pain, Headache, Starting on Ofelia 03/09/20 at 2023, Until Fri04/05/20 at 221, Blood cultures to be done every 48 hrs unless unstable. Last at 1800. celecoxib (CeleBREX) capsule 100 mg 100 mg, Oral, 2 TIMES DAILY PRN, Joint pain, Starting on Fri04/05/20 at 1100, Until Fri04/05/20 at 2215 magnesium sulfate 2 g in 50 mL bolus 2 g, at 25 mL/hr, Administer over 120 Minutes, Intravenous, PRN, Hypomagnesemia, Starting on Fri02/25/20 at 1527, Until Fri04/05/20 at 221, If magnesium less than 1.4; give 2gm Mag sulfate. If magnesium 1.1 or less, give an additional 2gm mag sulfate (for total of 4gm). May give magnesium at a rate of 2gm/hr. ondansetron (disintegrating) (ZOFRAN ODT) tablet 4 mg 4 mg, Oral, EVERY 8 HOURS PRN, Nausea/Vomiting, Starting on 03/04/20 at 1412, Until Fri04/05/20 at 221, Allow tablet to dissolve on the tongue ondansetron (ZOFRAN) injection 4 mg 4 mg, Intravenous, EVERY 8 HOURS PRN, Nausea/Vomiting, Starting on 03/04/20 at 1412, Until Fri04/05/20 at 221, Administer over 2 to 5 minutes. oxyCODONE (immediate release) (ROXICODONE) tablet 5 mg 5 mg, Oral, EVERY 4 HOURS PRN, Severe Pain, Starting on Fri03/24/20 at 0826, Until Fri04/05/20 at 2216 prochlorperazine (COMPAZINE) injection 10 mg 10 mg, Intravenous, EVERY 6 HOURS PRN, Nausea/Vomiting, Starting on 03/04/20 at 1411, Until Fri04/05/20 at 2216, Max intravenous rate = 5 mg/min prochlorperazine (COMPAZINE) tablet 5 mg 5 mg, Oral, EVERY 8 HOURS PRN, Nausea/Vomiting, Starting on Fri03/04/20 at 1411, Until Fri04/05/20 at 2216 saline nasal spray (OCEAN; BABY AYR) 0.65 % nasal spray 2 spray 2 spray, Each Nostril, EVERY 2 HOURS PRN, Dry Nose, Starting on Fri03/18/20 at 2117, Until Fri04/05/20 at 2216 Linked Groups Order Group 1: SALINE LOCK, INSERT AND MAINTAIN (CANCELED) Routine, CONTINUOUS, Starting on Fri03/06/20 at 1800, Until Specified, New collection And 0.9% NaCl injection 3 mLJump to med 3 mL, Intracatheter, EVERY 8 HOURS, First dose on Fri03/06/20 at 2200, Until Discontinued, Flush peripheral IV catheter with 3 mL of normal saline every 8 hours. And 0.9% NaCl injection 1-10 mLJump to med 1-10 mL, Intracatheter, PRN, Other, peripheral line flush, Starting on Fri03/06/20 at 1758, Until Fri04/05/20 at 2216, Flush peripheral IV catheter with 1-10 mL of normal saline before and after medications and prn to clear blood from the line or to verify patency. Group 2: immune globulin (GAMUNEX-C) 10 % 5 g ()Jump to med 5 g, at 0-999 mL/hr, Intravenous, CONTINUOUS, Starting on Fri04/03/20 at 1300, Until Fri04/03/20 at 1459, Dose 0.4mg/kg using IBW Actual Weight for Rate calculation: Wt 113.7 kg (250 lb 10.6 oz) Initiate IVIG at 0.5 mg/kg/min (34 mL/hr with VTBI: 17.06 mL) for 30 minutes. If tolerated, increase rate to 1 mg/kg/min (68 mL/hr with VTBI: 34.11 mL ) for 30 min. If tolerated, increase rate to 2 mg/kg/min (136 mL/hr with VTBI: 68.22 mL ) for 30 min. If tolerated, increase rate to 4 mg/kg/min (273 mL/hr with VTBI: 136.44 mL ) for 30 min. If tolerated, increase rate to 8 mg/kg/min (546 mL/hr with VTBI: 272.88 mL or until bag contents completely infused) See IVIG Monitoring order in Nursing Communications for monitoring instructions. Followed by immune globulin (GAMUNEX-C) 10 % 10 g ()Jump to med 10 g, at 0-999 mL/hr, Intravenous, CONTINUOUS, Starting on Fri04/03/20 at 1500, Until Fri04/03/20 at 1559, Actual Weight for Rate calculation: Wt 113.7 kg (250 lb 10.6 oz) Initiate IVIG at 0.5 mg/kg/min (34 mL/hr with VTBI: 17.06 mL) for 30 minutes. If tolerated, increase rate to 1 mg/kg/min (68 mL/hr with VTBI: 34.11 mL ) for 30 min. If tolerated, increase rate to 2 mg/kg/min (136 mL/hr with VTBI: 68.22 mL ) for 30 min. If tolerated, increase rate to 4 mg/kg/min (273 mL/hr with VTBI: 136.44 mL ) for 30 min. If tolerated, increase rate to 8 mg/kg/min (546 mL/hr with VTBI: 272.88 mL or until bag contents completely infused) See IVIG Monitoring order in Nursing Communications for monitoring instructions. Followed by immune globulin (GAMUNEX-C) 10 % 10 g ()Jump to med 10 g, at 0-999 mL/hr, Intravenous, CONTINUOUS, Starting on Fri04/03/20 at 1600, Until Fri04/03/20 at 1659, Actual Weight for Rate calculation: Wt 113.7 kg (250 lb 10.6 oz) Initiate IVIG at 0.5 mg/kg/min (34 mL/hr with VTBI: 17.06 mL) for 30 minutes. If tolerated, increase rate to 1 mg/kg/min (68 mL/hr with VTBI: 34.11 mL ) for 30 min. If tolerated, increase rate to 2 mg/kg/min (136 mL/hr with VTBI: 68.22 mL ) for 30 min. If tolerated, increase rate to 4 mg/kg/min (273 mL/hr with VTBI: 136.44 mL ) for 30 min. If tolerated, increase rate to 8 mg/kg/min (546 mL/hr with VTBI: 272.88 mL or until bag contents completely infused) See IVIG Monitoring order in Nursing Communications for monitoring instructions. Followed by immune globulin (GAMUNEX-C) 10 % 10 g ()Jump to med 10 g, at 0-999 mL/hr, Intravenous, CONTINUOUS, Starting on Fri04/03/20 at 1700, Until Fri04/03/20 at 1759, Actual Weight for Rate calculation: Wt 113.7 kg (250 lb 10.6 oz) Initiate IVIG at 0.5 mg/kg/min (34 mL/hr with VTBI: 17.06 mL) for 30 minutes. If tolerated, increase rate to 1 mg/kg/min (68 mL/hr with VTBI: 34.11 mL ) for 30 min. If tolerated, increase rate to 2 mg/kg/min (136 mL/hr with VTBI: 68.22 mL ) for 30 min. If tolerated, increase rate to 4 mg/kg/min (273 mL/hr with VTBI: 136.44 mL ) for 30 min. If tolerated, increase rate to 8 mg/kg/min (546 mL/hr with VTBI: 272.88 mL or until bag contents completely infused) See IVIG Monitoring order in Nursing Communications for monitoring instructions. documented in this encounter Additional Health Concerns Infection Onset Date Last Indicated Resolved Time COVID-19 Under Investigation 02/25/2020 02/25/2020 02/26/2020 4:19 PM CDT COVID-19 Under Investigation 02/27/2020 02/27/2020 02/27/2020 4:07 PM CDT COVID-19 Under Investigation 03/03/2020 03/04/2020 03/05/2020 6:23 AM CDT COVID-19 Under Investigation 03/06/2020 03/06/2020 03/07/2020 11:57 AM CDT COVID-19 Confirmed 03/06/2020 07/14/2020 0 4:33 AM LMSW COVID-19 Under Investigation 03/07/2020 03/07/2020 03/09/2020 8:54 AM CDT COVID-19 Under Investigation 03/29/2020 03/29/2020 03/30/2020 9:42 AM CDT documented as of this encounter Care Teams Die Cast Die Maker Relationship Specialty Start Date End Date Ran Nuñez MD [address] [place] [address] PCP - General Family Medicine 03/22/19 12/22/20 Hillary Apple MD [facility] [place] [address] Hematology and Oncology 03/17/19 Bill Ferrera MD [address] [place] [id number] Hematology and Oncology 03/17/19 08/27/21 Tony Dumont MD [address] [place] [id number] Hematology and Oncology 03/17/19 Maryjo Reinoso, NIGHT SHIFT Underwater Trapper 03/17/19 Madyson Clay, PharmD 03/17/19 Dana Lala, TRANSCRIBING OPERATOR HEAD-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 [address] [place] [address] [address] [place] [address] Oncology 03/17/19 Tiffanie Nguyen, TRANSCRIBING OPERATOR HEAD-SEWING DEMONSTRATOR [address] [place] [address] [address] [place] [address] Family Medicine 03/17/19 Stephanie Mahoney, RN Registered Nurse 03/17/19 10/29/21 Alycia Galvan, ROSEMARY 03/17/19 10/29/21 Cesar Tavares MD [address] [place] [address] Referring Physician Medical Oncology 03/23/19 Karie Jones, RN Registered Nurse 06/08/19 10/29/21 Joy Bob 09/22/19 Addison Shea, PharmD Pharmacist 09/22/19 10/29/21 documented as of this encounter
--- OUTSIDE RECORDS SUMMARY | 2024-08-18 00:27 | XMS_ITS | Encounter Summary ---
Author Organization [facility] Address [address] [place] [address] Care Team Providers Care Fish And Game Warden Name Role Phone Hillary Apple MD Unavailable [phone] Bill Ferrera MD Unavailable [phone] Tony Dumont MD Unavailable [phone] Maryjo Reinoso [facility] Unavailable Unavailable Madyson Clay PharmD Unavailable Unavaila Dana Galicia COTTON GRADER-CONCRETE TILE MACHINE OPERATOR Unavailable [phone] Tiffanie Nguyen COTTON GRADER-CITIZENSHIP INSTRUCTOR Unavailable [phone] Stephanie Mahoney RN Unavailable Unavailable Alycia Galvan RN Unavailable UnavailRan Mejía MD Primary Care Provider Cesar Tavares MD Unavailable [phone] Karie Jones RN Unavailable Unavailable Joy Bob Unavailable Afnta Addison Weinstein PharmD Unavailable Unavailab campbell Reason for Visit * Auth/Cert Specialty Diagnoses / Procedures Referred By Contac t Referred To Contact Diagnoses fever Referral ID Status Reason Start Date Expiration Date Visits Re quested Visits Authorized [id number] 1 1 Encounter Details Date Type Department Care Team (Late st Contact Info) Description 03/06/2020 1:14 PM CDT Anesthesia Event [facility] [address] [place] [address] Casandra Newton MD [address] [place] [address] Benjamin Haynes Anes Asst [address] [place] [address] Anesthesia Record Procedure Summary Procedure Name Responsible Anesthesiologist Anesthesia Start Time Anesthesia Stop Time BRONCHOSCOPY BRONCHIAL LAVAGE Casandra Newton MD 03/06/20 1314 03/06/20 1500 Events Date Time Event Comment 03/06/2020 1128 1314 Pt In Room 1314 An Start 1314 An Start Data 1330 Anes Timeout 1330 PT Reassessment 1330 Timeout Anesthesia part icipated in timeout at the time documented in the record by nursing. 1332 Induction 1333 An Intubation 1350 Anes Ready 1351 Proc Start 1407 Proc Stop 1407 An Emergence 1500 an stop data 1500 Pt out of Room 1500 ANPTO2 1500 An Stop 1546 Quick Note Patient given D ilaudid while awaiting room bed assignment. - Melanie Meds Name Total fentaNYL 100 mcg/2ml injection 100 mcg lidocaine PF 2% 80 mg propofol 200mg/20mL injection 200 mg succinylcholine 20 mg/mL injection 180 m g rocuronium 50 mg/5 mL injection 60 mg phenylephrine 100 mcg/mL injection 500 m cg propofol 500 mg/50 mL 1,005.96 mg hydromorphone 2 mg/10mL prefilled syring e 0.8 mg LR (Lactated ringers) 1,100 mL * Agents Name Exp. Sevoflurane Insp. Sevoflurane * Blood No blood administrations on file. Lines, Drains, and Airways Type Details Placement Removal Peripheral IV Date: 03/04/20; Time : 0610; Orientation: Anterior, Distal, Left; Placed By: Vane Kothari RN; Tolerance: Well 03/04/20 0610 by Vane Kothari RN 03/06/20 1515 by Mitzi Tinajero RN Peripheral IV Date: 03/06/20; Time : 1327; Orientation: Right; Placed By: Aman; Tolerance: Well 03/06/20 1327 by Benjamin Haynes Anes Asskt 03/06/20 1902 by Amy Baron RN ETT Date: 03/06/20; Time : 1333; Placed By: Clemente Gastelum; Vent: mask not attempted; Induction: Rapid Sequence; Blade Type: Video; Blade Size: 4; Laryngoscopy View: Grade 1 (full cords); Intubation Adjuncts: Stylet, Cricoid Pressure; Tube: Endotracheal Tube; Placement: Oral; Tube Type: Cuffed-inflated; Tube Size(mm): 9 MM; Depth of Insertion: 24 CM; Measured From: lips; Attempts: 1; Cuff Infated: Air; Cuff Vol(mL): 10 mL; Verified By: Direct visualization, Bilateral breath sounds, Chest Auscultation, CO2 Monitor 03/06/20 1333 by Benjamin Haynes Anes Asst 03/08/20 1117 by Amy Baron RN Peripheral IV Date: 03/06/20; Time : 1338; Orientation: Right; Placed By: Aman; Tolerance: Well, General Anesthesia 03/06/20 1338 by Benjamin Haynes Anes Asst 03/11/20 1505 by Dian Rao RN documented in this encounter Social History Tobacco Use Types Packs/Day Years [...] as of this encounter Progress Notes * Casandra Newton MD - 03/08/2020 3:41 PM CDT ANESTHESIA POSTOP EVALUATION NOTE Procedure: BRONCHOSCOPY BRONCHIAL LAVAGE (N/A ) Marcello Guillen is a 49 year old male Patient Vitals for the past 6 hrs: BP Temp Pulse Resp SpO2 Pain Scale/Observation 03/08/20 1000 138/75 100 ??F (37.8 ??C) 64 21 94 % No/denies pain 03/08/20 1016 -- -- -- -- 92 % -- 03/08/20 1046 -- -- 68 10 (!) 86 % -- 03/08/20 1100 135/72 (!) 100.1 ??F (37.8 ??C) 69 12 92 % -- 03/08/20 1117 -- -- -- -- 95 % No/denies pain 03/08/20 1130 -- -- 69 22 94 % -- 03/08/20 1200 144/74 -- 66 18 92 % No/denies pain 03/08/20 1300 142/71 -- 71 19 96 % -- 03/08/20 1400 131/59 -- 72 13 92 % No/denies pain 03/08/20 1500 140/61 -- 72 14 92 % -- Anesthesia Type: general ETT Pre-op Diagnosis Codes: * Abnormal CXR [R93.89] Mental Status: sedated Postop Pain: adequate Postop Hydration: adequate Postop Nausea: none Assessment: no apparent anesthetic complications, patient tolerated procedure well and no evidence of recall Patient Disposition: Follow Up Needed Non Reportable Improvement Section (otherwise blank): * Miles Pemberton DO - 03/07/2020 7:51 AM CDT ANESTHESIA POSTOP EVALUATION NOTE Procedure: BRONCHOSCOPY BRONCHIAL LAVAGE (N/A ) Marcello Guillen is a 49 year old male Patient Vitals for the past 6 hrs: BP Temp Pulse Resp SpO2 Pain Scale/Observation 03/07/20 0200 119/68 98.9 ??F (37.2 ??C) 69 17 100 % CPOT 03/07/20 0300 106/57 -- 69 14 100 % -- 03/07/20 0400 102/60 -- 67 15 100 % CPOT 03/07/20 0500 110/70 -- 65 16 96 % -- 03/07/20 0521 -- -- 77 -- -- -- 03/07/20 0600 103/64 (!) 100.1 ??F (37.8 ??C) 75 19 95 % CPOT 03/07/20 0700 114/80 -- 79 19 94 % -- Anesthesia Type: general ETT Pre-op Diagnosis Codes: * Abnormal CXR [R93.89] Mental Status: sedated Respiratory Function: mechanical ventilation, requires O2 and supported Cardiac Function: stable Postop Pain: adequate Postop Hydration: adequate Postop Nausea: none Assessment: no apparent anesthetic complications, patient tolerated procedure well and no evidence of recall Patient Disposition: Release from Anesthesia Care Non Reportable Improvement Section (otherwise blank): * Casandra Newton MD - 03/06/2020 3:06 PM CDT ANESTHESIA POSTOP EVALUATION NOTE Procedure: BRONCHOSCOPY BRONCHIAL LAVAGE (N/A ) BRONCHOSCOPY TRANSBRONCHIAL LUNG BIOPSY (N/A ) Marcello Guillen is a 49 year old male Patient Vitals for the past 6 hrs: BP Temp Pulse Resp SpO2 Pain Scale/Observation 03/06/20 0908 -- -- -- -- -- No/denies pain 03/06/20 1204 132/81 (!) 101.6 ??F (38.7 ??C) 95 16 92 % -- Anesthesia Type: general ETT Pre-op Diagnosis Codes: * Abnormal CXR [R93.89] Mental Status: sedated Respiratory Function: mechanical ventilation Postop Pain: adequate Postop Hydration: adequate Postop Nausea: none Assessment: no apparent anesthetic complications, patient tolerated procedure well and no evidence of recall Patient Disposition: Follow Up Needed Non Reportable Improvement Section (otherwise blank): * Casandra Newton MD - 03/06/2020 11:26 AM CDT ANESTHESIA PREOPERATIVE EVALUATION NOTE Procedure: BRONCHOSCOPY BRONCHIAL LAVAGE (N/A ) BRONCHOSCOPY TRANSBRONCHIAL LUNG BIOPSY (N/A ) Vitals: Patient Vitals for the past 6 hrs: BP Temp Pulse Resp SpO2 03/06/20 0838 124/54 98.5 ??F (36.9 ??C) 69 20 92 % ANESTHESIA PRE-EVALUATION NOTE History of Present Illness: Marcello Guillen is a 49 year old male with [...] consulted for management of hypoxic respiratory failure. Physical Exam: Orientation X3 Airway/Mallampati Score: II Heart: normal - S1 S2 Abdomen Exam: soft ANESTHESIA PLAN ASA Score: 3 NPO Status: No solids since midnight and No liquids within 2 hours Anesthesia Plan: general ETT Planned Induction: intravenous Planned Postop Destination: other - comments (recover in bronch suite) Anesthetic plan was discussed with: patient Anesthetic Plan discussion was: Consented The patient's procedural Anesthetic Plan was discussed with the anesthesiologist, visitor use assistant and attending. Overall additional findings/comments: Patient with O2 sats 84% on 100% non rebreather. Will keep patient vented post procedure, in ICU.. BMI, Height, Weight Tobacco History Estimated body mass index is 41.84 kg/m?? as calculated from the following: Height as of this encounter: 1.702 m (5' 7.01 ). Weight as of this encounter: 121.2 kg (267 lb 3.2 oz). Social History Tobacco Use Smoking Status Former Smoker ??? Packs/day: 0.50 ??? Types: Cigarettes ??? Start date: 1983 ??? Last attempt to quit: 2001 ??? Years since quittin.6 Smokeless Tobacco Former User ??? Types: Chew ??? Quit date: 2016 Alcohol History Drug History Social History Substance and Sexual Activity Alcohol Use Not Currently ??? Frequency: Never ??? Binge frequency: Never Social History Substance and Sexual Activity Drug Use Yes ??? Frequency: 21.0 times per week ??? Types: Marijuana Comment: none in past month Outpatient Medications: Inpatient Medications: Outpatient Medications Marked as Taking for the 02/25/20 encounter (Hospital Encounter) with Kaden Apple MD Medication Sig Last Dose ??? acyclovir Take 2 tablets by mouth 2 times daily 02/25/2020 at Unknown time ??? apixaban Take 1 tablet by mouth 2 times daily 02/25/2020 at Unknown time ??? diclofenac sodium EC TK 1 T PO BID PRF PAIN 02/25/2020 at Unknown time ??? escitalopram Take 1 tablet by mouth once daily 02/25/2020 at Unknown time ??? multivitamin daily Take 1 tablet by mouth daily with food 02/25/2020 at Unknown time ??? ondansetron (disintegrating) Dissolve 1 tablet on top of tongue then swallow with saliva every 8 hours as needed for nausea or vomiting Past Month at Unknown time ??? penicillin v potassium Take 1 tablet by mouth 2 times daily 02/25/2020 at Unknown time ??? prochlorperazine Take 10 mg by mouth every 6 hours as needed 02/24/2020 at Unknown time ??? rOPINIRole Take 1 tablet by mouth at bedtime Reasons: Restless Leg Syndrome 02/25/2020 at Unknown time ? ? sulfamethoxazole-trimethoprim Take 1 tablet by mouth every Friday, Friday & Friday Reasons: PJP prophylaxis s/p stem cell transplant 02/25/2020 at Unknown time Current Facility-Administered Medications Medication Dose Last Dose ??? 0.9% NaCl IV ??? acetaminophen 650 mg ??? albuterol HFA 2 puff 2 puff at 03/06/20 09 ??? escitalopram 10 mg 10 mg at 03/06/20909 ??? LORazepam 1 mg 1 mg at 03/05/202058 ??? magnesium sulfate 2 g ??? meropenem 1,000 mg 1,000 mg at 03/06/20909 ??? ondansetron (disintegrating) 4 mg ??? ondansetron 4 mg ??? oxyCODONE (immediate release) 5 mg 5 mg at 03/05/202057 ??? perflutren Lipid Microsphere 0.5 mL 0.5 mL at 03/03/20 1748 ??? predniSONE 90 mg 90 mg at 03/06/20 0910 ??? prochlorperazine 10 mg ??? prochlorperazine 5 mg ??? rOPINIRole 0.5 mg 0.5 mg at 03/05/202057 ??? sulfamethoxazole-trimethoprim 1 tablet 1 tablet at 03/03/20 1754 ??? valACYclovir 500 mg 500 mg at 03/06/20 0915 ??? vancomycin 1,750 mg Stopped at 03/06/20 0748 Allergies: Allergies Allergen Reactions ??? Adhesive Sensitivity Urticaria and Other Electrodes -- welps where stickers are Also, use paper tape Relevant Problems No relevant active problems Problem List: Patient Active Problem List Diagnosis Date Noted ??? Status post autologous bone marrow transplant 03/05/2020 Priority: Not Prioritized ??? Fever 02/25/2020 Priority: Not Prioritized ??? S/P splenectomy 09/09/2019 Priority: Not Prioritized ??? History of marijuana use 06/28/2019 Priority: Not Prioritized ??? DLBCL (diffuse large B cell lymphoma) 05/24/2019 Priority: Not Prioritized ??? Asthma 12/03/2017 Priority: Not Prioritized ??? B-cell lymphoma 04/18/2017 Priority: Not Prioritized ??? Lymphadenopathy 04/11/2017 Priority: Not Prioritized Medical History: Past Medical History: Diagnosis Date ??? Diverticulosis ??? GERD (gastroesophageal reflux disease) taking prevacid prn ??? H/O echocardiogram 08/11/2019 ??? Lymphoma of lymph nodes ??? Multiple body piercings facial ??? Port-A-Cath in place right subclavian ??? Sleep apnea not using CPAP ??? Transient alteration of awareness 2018 during knee arthroplasty(single incident) Surgical History: Past Surgical History: Procedure Laterality Date ??? ACL RECONSTRUCTION ??? BONE MARROW BIOPSY ??? COLONOSCOPY WITH POLYPECTOMY ??? Knee Arthroscopy Right 2018 with hardware ??? Splenectomy N/A 08/17/2019 N/A; LAPAROSCOPIC SPLENECTOMY POSS OPEN ??? Tonsillectomy ??? VENOUS ACCESS DEVICE (PORT OR CATHETER) Right 2019 subclavian Lab Results: Recent Labs Component Name 03/05/202352 WBC 16.7* RBC 3.39* HCT 28.4* HGB 9.8* PLTCOUNT 266 MCV 83.8 MCH 28.9 MCHC 34.5 MPV 11.6 Recent Labs Component Name 03/05/20 235 POTASSIUM 3.8 CALCIUM 8.1* CO2 22 GLUCOSE 138* BUN 15 CREATININE 0.9 Recent Labs Component Name 02/26/20 0008 BLOODU Negative WBCU 0-5 NITRITE Negative PROTEINU 2+* Recent Labs Component Name 02/27/209 02/27/20 0411 PTT - 37.9 PT 14.2 16.2* INR 1.1 1.3 Recent Labs Component Name 03/05/203 03/03/20 1759 MAGNESIUM 1.9 - - BNP - - 25 - = values in this interval not displayed. Invalid input(s): PREGTESTUR Recent Labs Component Name 03/05/20235203/03/20 1247 ALT 93* - - AST 47* - - ALKPHOS 81 - - TBILI 0.3 - - ANIONGAP 16 - - EGFR >60 - - FERRITIN - - 743* - = values in this interval not displayed. documented in this encounter Procedure Notes * Benjamin Haynes Anes Asst - 03/06/2020 1:59 PM CDTAssociated Order(s): ETT Placement Endotracheal Tube Placement: Intubation Event Date/Time: 03/06/2020 1:33 PM Procedure: intubation (92037). Procedure Section: Sedation: under general anesthesia. Indications for Airway Management: anesthesia Induction: rapid sequence Patient Position: sniffing Mask Ventilation: not attempted. Blade Type: Video ([facility] 4) Blade Size: 4 Laryngoscopy View: grade 1 (full cords) Intubation Adjuncts: stylet and cricoid pressure Tube: endotracheal tube Placement: oral Tube type: cuff - inflated Tube Size (MM): 9 Depth of Insertion (CM): 24 Measured From: lips Cuff volume (mL): 10 Cuff Inflated With: air Number of Attempts: 1. Placement Verified By: direct visualization, bilateral breath sounds, chest auscultation, CO2 monitor and bronchoscope Tube secured with: ETT baum. Difficult Airway? No. Procedure Start Time: 03/06/2020 1:33 PM. Staff Section Anesthesia Provider: Benjamin Haynes Anes Asst, Performed the procedure documented in this encounter Miscellaneous Notes * Anesthesia Transfer of Care - Benjamin Haynes Anes Asst - 03/06/2020 3:01 PM CDT ANESTHESIA TRANSFER OF CARE NOTE Today's Date: 03/06/2020 Date of : 1970 Patient: Marcello Guillen Procedure(s): BRONCHOSCOPY BRONCHIAL LAVAGE BRONCHOSCOPY TRANSBRONCHIAL LUNG BIOPSY Surgeon(s): Primary: Elkin Rosenbaum MD Fellow: Jorge Luis Ham MD Preop Diagnosis: Pre-op Diagnois: * Abnormal CXR [R93.89] Pre-op Meds (From admission, onward) Start Stop Status Route Frequency Ordered 03/04/20 1445 0.9% NaCl infusion -- Dispensed IV CONTINUOUS 03/04/20 1410 03/04/20 1609 acetaminophen (TYLENOL) tablet 650 mg -- Dispensed PO EVERY 4 HOURS PRN 03/04/20 1610 03/02/201999 albuterol HFA (PROVENTIL;VENTOLIN;PROAIR) 108 (90 Base) MCG/ACT inhaler 2 puff -- Dispensed IN EVERY 4 HOURS 03/02/20 1726 03/06/20 1201 EPINEPHrine 1 mg/ml injection ADS Med Note to Pharmacy: Annabella Hargrove: cabinet override -- Dispensed 03/06/20 1201 02/26/20 0900 escitalopram (LEXAPRO) tablet 10 mg -- Dispensed PO DAILY 02/25/20 1528 03/06/20 1200 lidocaine (XYLOCAINE) 2% injection ADS Med Note to Pharmacy: Annabella Hargrove: cabinet override -- Dispensed 03/06/20 1200 03/06/20 1200 lidocaine (XYLOCAINE) 2% viscous solution ADS Med Note to Pharmacy: Annabella Hargrove: cabinet override -- Dispensed 03/06/20 1200 02/28/20 2000 LORazepam (ATIVAN) injection 1 mg -- Dispensed IV AT BEDTIME PRN 02/28/20 1734 02/25/20 1527 magnesium sulfate 2 g in 50 mL bolus -- Verified IV PRN 02/25/20 1528 03/04/20 1015 meropenem (MERREM) 1,000 mg in sterile water (PF) 20 mL syringe -- Dispensed IV EVERY 8 HOURS 03/04/20 0939 03/04/20 1412 ondansetron (disintegrating) (ZOFRAN ODT) tablet 4 mg -- Verified PO EVERY 8 HOURS PRN 03/04/20 1412 03/04/20 1412 ondansetron (ZOFRAN) injection 4 mg -- Dispensed IV EVERY 8 HOURS PRN 03/04/20 1412 02/26/20 1610 oxyCODONE (immediate release) (ROXICODONE) tablet 5 mg -- Dispensed PO EVERY 4 HOURS PRN 02/26/20 1611 03/03/20 1731 perflutren Lipid Microsphere (DEFINITY) injection SUSP 0.5 mL -- Verified IV INTRA-PROCEDURE MULTIPLE 03/03/20 1732 03/05/20 1215 predniSONE (DELTASONE) tablet 90 mg -- Dispensed PO DAILY WITH BREAKFAST 03/05/20 1134 03/04/20 1411 prochlorperazine (COMPAZINE) injection 10 mg -- Verified IV EVERY 6 HOURS PRN 03/04/20 1412 03/04/20 1411 prochlorperazine (COMPAZINE) tablet 5 mg -- Verified PO EVERY 8 HOURS PRN 03/04/20 1412 03/06/20 1444 propofol (DIPRIVAN) bolus from infusion bag 10 mg -- Sent IV BOLUS FROM BAG PRN 03/06/20 1500 03/06/20 1515 propofol (DIPRIVAN) infusion -- Sent IV CONTINUOUS 03/06/20 1500 02/25/20 2100 rOPINIRole (REQUIP) tablet 0.5 mg -- Dispensed PO AT BEDTIME 02/25/20 1528 02/25/20 1700 sulfamethoxazole-trimethoprim (BACTRIM DS; SEPTRA DS) 800-160 MG tablet 1 tablet 05/05 1659 Dispensed PO EVERY MON, WED AND FRI 02/25/20 1529 02/25/20 2100 valACYclovir (VALTREX) tablet 500 mg 06/04 2059 Dispensed PO 2 TIMES DAILY 02/25/20 1528 02/26/20 1800 vancomycin (VANCOCIN) 1,750 mg in 535 mL IVPB -- Dispensed IV EVERY 12 HOURS 02/26/20 1643 Post-op Diagnosis: * Abnormal CXR [R93.89] . Allergies Allergen Reactions ??? Adhesive Sensitivity Urticaria and Other Electrodes -- welps where stickers are Also, use paper tape Vitals: Patient Vitals for the past 3 hrs: BP Temp Pulse Resp SpO2 03/06/20 1204 132/81 (!) 101.6 ??F (38.7 ??C) 95 16 92 % Lines, Drains, and Airways Type Details Placement Removal Peripheral IV Date: 03/04/20; Time: 0610; Orientation: Anterior, Distal, Left; Location: Wrist; Placed By: Vane Kothari RN; Gauge: 20 Gauge; Locals: None; Tolerance: Well 03/04/20 06 by Vane Kothari RN Peripheral IV Date: 03/06/20; Time: 132; Orientation: Right; Location: Forearm; Placed By: Aman;Gauge: 20 Gauge; Locals: Trans Dermal; Tolerance: Well 03/06/20 132 by Benjamin Haynes AnesAsst ETT Date: 03/06/20; Time: 133; Placed By: Clemente Gastelum; Vent: mask not attempted; Induction: Rapid Sequence; Blade Type: Video; Blade Size: 4; Laryngoscopy View: Grade 1 (full cords); Intubation Adjuncts: Stylet, Cricoid Pressure; Tube: Endotracheal Tube; Placement: Oral; Tube Type: Cuffed- inflated; Tube Size(mm): 9 MM; Depth of Insertion: 24 CM; Measured From: lips; Attempts:1; Cuff Infated: Air; Cuff Vol(mL): 10 mL; Verified By: Direct visualization, Bilateral breath sounds, Chest Auscultation, CO2 Monitor 03/06/20 133 by Benjamin Haynes Anes Asst Peripheral IV Date: 03/06/20; Time: 1338; Orientation: Right; Location: Hand; Placed By: Aman; Gauge: 18 Gauge; Locals: None; Tolerance: Well, General Anesthesia 03/06/20 1338 by Benjamin Haynes Anes Asst Intraprocedure I/O Totals LR (Lactated ringers) Volume infused 1100 ml Patient Transfer Location: Out of OR Proc Area (Bronch suite) Transport Airway: postoperative ventilator and supplemental O2 Transport Monitoring: heart rate, continuous pulse oximetry, frequent blood pressure checks and front office coordinator Complications: None Handoff Given? Yes Checklist or Protocol - The alfonso handoff elements that must be included in the transfer of care checklist include: 1. Identification of patient. 2. Identification of responsible practitioner (PACU nurse or advanced practitioner). 3. Discussion of pertinent medical history. 4. Discussion of the surgical/procedure course (procedure, reason for surgery, procedure performed). 5. Intraoperative anesthetic management and issue/concerns. 6. Expectations/Plans for the early post-procedure period. 7. Opportunity for questions and acknowledgement of understanding of report from the receiving PACUteam. Clemente Gastelum documented in this encounter Plan of Treatment Upcoming Encounters Date Type Department Care Team (Late st Contact Info) Description 08/26/2024 11:00 AM ROLLER REPAIRER Office Visit [facility] - Pulmonology [address] [place] [address], [place] [address] Andrew Francis MD [address] [place] [address] OF PULMONARY/[place] [address] documented as of this encounter Procedures Procedure Name Priority Date/Time Associated Diagnosis Comments ENDOTRACHEAL TUBE NOTE Routine 03/06/2020 1:59 PM CDT documented in this encounter Results * ETT LINE PERFORMABLE (03/06/2020 1:59 PM CDT) Narrative Benjamin Haynes Anes Asst - 03/06/2020 1:59 PM CDT Benjamin Haynes Anes Asst ? 03/06/2020 ??2:00 PM Endotracheal Tube Placement: ? Intubation Event Date/Time: ??03/06/2020 1:33 PM Procedure: intubation (21064). Procedure Section: ?? Sedation: under general anesthesia. [...] Casandra Newton MD GENERAL ANESTHESIA O RDERABLES documented in this encounter Visit Diagnoses Not on filedocumented in this encounter Administered Medications Inactive Administered Medications - up to 3 most recent administrations Medication Order MAR Action Action Date Dose Rate Site fentaNYL (PF) (SUBLIMAZE) injection Intravenous, PRN, Starting on Fri03/06/20 at 1332, Until Fri03/06/20 at 1500, Anesthesia Intra-op $ Given 03/06/2020 1:32 PM CDT 100 mcg HYDROmorphone HCl-NaCl 2-0.9 MG/10ML-% SOSY PRN, Starting on Fri03/06/20 at 1540, Until Fri03/06/20 at 1839, Anesthesia Intra-op $ Given 03/06/2020 3:54 PM CDT 0.4 mg $ Given 03/06/2020 3:40 PM CDT 0.4 mg lactated ringers infusion Intravenous, CONTINUOUS PRN, Starting on Fri03/06/20 at 1330, Until Fri03/06/20 at 1500, Anesthesia Intra-op $ New Bag/Syringe 03/06/2020 2:35 PM CDT $ New Bag/Syringe 03/06/2020 1:30 PM CDT lidocaine hcl (PF) (XYLOCAINE MPF) 2 % injection Infiltration, PRN, Starting on Fri03/06/20 at 1332, Until Fri03/06/20 at 1500, Anesthesia Intra-op $ Given 03/06/2020 1:32 PM CDT 80 mg phenylephrine 100 mcg/mL injection Intravenous, PRN, Starting on Fri03/06/20 at 1406, Until Fri03/06/20 at 1500, Anesthesia Intra-op $ Given 03/06/2020 2:40 PM CDT 100 mcg $ Given 03/06/2020 2:30 PM CDT 100 mcg $ Given 03/06/2020 2:23 PM CDT 100 mcg propofol (DIPRIVAN) infusion CONTINUOUS PRN, Starting on Fri03/06/20 at 1348, Until Fri03/06/20 at 1500, Anesthesia Intra-op Rate Change 03/06/2020 2:43 PM CDT 90 mcg/kg/min 65.45 mL/hr Rate Change 03/06/2020 2:30 PM CDT 100 mcg/kg/min 72.72 mL /hr Rate Change 03/06/2020 2:24 PM CDT 110 mcg/kg/min 79.99 mL /hr propofol (DIPRIVAN) injection Intravenous, PRN, Starting on Fri03/06/20 at 1332, Until Fri03/06/20 at 1500, Anesthesia Intra-op $ Given 03/06/2020 1:32 PM CDT 200 mg rocuronium (ZEMURON) injection Intravenous, PRN, Starting on Fri03/06/20 at 1344, Until Fri03/06/20 at 1500, Anesthesia Intra-op $ Given 03/06/2020 2:33 PM CDT 20 mg $ Given 03/06/2020 1:44 PM CDT 40 mg succinylcholine (ANECTINE) injection Intravenous, PRN, Starting on Fri03/06/20 at 1332, Until Fri03/06/20 at 1500, Anesthesia Intra-op $ Given 03/06/2020 1:32 PM CDT 180 mg documented in this encounter Additional Health Concerns Infection Onset Date Last Indicated Resolved Time COVID-19 Under Investigation 03/06/2020 03/06/2020 03/07/2020 11:57 AM CDT documented as of this encounter Care Teams Fish And Game Warden Relationship Specialty Start Date End Date Ran Nuñez MD [address] [place] [address] PCP - General Family Medicine 03/22/19 12/22/20 Hillary Apple MD [facility] [place] [address] Hematology and Oncology 03/17/19 Bill Ferrera MD [address] [place] [address] Hematology and Oncology 03/17/19 08/27/21 Tony Dumont MD [address] [place] [id number] Hematology and Oncology 03/17/19 Maryjo Reinoso, COMMERCIAL COLLECTOR Motor Vehicle Lecturer 03/17/19 Madyson Clay, PharmD 03/17/19 Dana Lala, COTTON GRADER-CONCRETE TILE MACHINE OPERATOR [address] [place] [address] [address] [place] [address] Oncology 03/17/19 Tiffanie Nguyen, COTTON GRADER-CITIZENSHIP INSTRUCTOR [address] [place] [address] 2nd [place] [address] Family Medicine 03/17/19 Stephanie Mahoney, RN Registered Nurse 03/17/19 10/29/21 Alycia Galvan, ROSEMARY 03/17/19 10/29/21 Cesar Tavares MD [address] [place] [address] Referring Physician Medical Oncology 03/23/19 Karie Jones, RN Registered Nurse 06/08/19 10/29/21 Joy Bob 09/22/19 Addison Shea, PharmD Pharmacist 09/22/19 10/29/21 documented as of this encounter
--- OUTSIDE RECORDS SUMMARY | 2024-08-18 00:29 | XMS_ITS | Encounter Summary ---
Author Organization [facility] Address [address] [place] [address] Care Team Providers Care Hoop Punch Operator Helper Name Role Phone Hillary Apple MD Unavailable [phone] Bill Ferrera MD Unavailable [phone] Tony Dumont MD Unavailable [phone] Maryjo Reinoso [facility] Unavailable Unavailable Madyson Clay PharmD Unavailable Unavaila Dana Galicia TECHNICAL SERVICE SPECIALIST-STEAM HAND Unavailable [phone] Tiffanie Nguyen APRN-GLOBAL RECRUITER Unavailable [phone] Stephanie Mahoney RN Unavailable Unavailable Alycia Galvan RN Unavailable UnavailRan Mejía MD Primary Care Provider Cesar Tavares MD Unavailable [phone] Karie Jones RN Unavailable Unavailable Joy Bob Unavailable Fanta Addison Weinstein PharmD Unavailable Unavailab le Encounter Details Date Type Department Care Team (Late st Contact Info) Description 02/25/2020 Orders Only [facility] BMT CLINIC [address] [place] [address] Tiffanie Nguyen APRN-GLOBAL RECRUITER [address] [place] [address] Social History Tobacco Use Types Packs/Day Years [...] or have serious hearing difficult y? No 10/13/2019 Is person blind or have serious difficulty seein g? No 10/13/2019 Does person have serious dif ficulty walking/climbing stairs? No 10/13/2019 Does person have difficulty dressing/bathing? No 10/13/2019 Does person have difficulty doing errands alone? No 10/13/2019 Cognitive Status Response Date of Assessm ent Does person have difficulty concentrating/remembering/making decisions? No 10/13/2019 documented as of this encounter Plan of Treatment Upcoming Encounters Date Type Department Care Team (Late st Contact Info) Description 08/26/2024 11:00 AM FIRMWARE SOFTWARE VERIFICATION ENGINEER Office Visit [facility] - Pulmonology [address] [place] [address], [place] [address] Andrew Francis MD [address] [place] [address] DIV OF PULMONARY/[place] [address] documented as of this encounter Visit Diagnoses Not on filedocumented in this encounter Additional Health Concerns Infection Onset Date Last Indicated Resolved Time COVID-19 Under Investigation 02/25/2020 02/25/2020 02/26/2020 4:19 PM CDT COVID-19 Under Investigation 02/27/2020 02/27/2020 02/27/2020 4:07 PM CDT COVID-19 Under Investigation 03/03/2020 03/04/2020 03/05/2020 6:23 AM CDT documented as of this encounter Care Teams Hoop Punch Operator Helper Relationship Specialty Start Date End Date Ran Nuñez MD [address] [place] [address] PCP - General Family Medicine 03/22/19 12/22/20 Hillary Apple MD [facility] [place] [address] Hematology and Oncology 03/17/19 Bill Ferrera MD [address] [place] [address] Hematology and Oncology 03/17/19 08/27/21 Tony Dumont MD [address] [place] [address] Hematology and Oncology 03/17/19 Maryjo Reinoso, ATHLETIC TRAINER Double Cut Sawyer 03/17/19 Madyson Clay, PharmD 03/17/19 Dana Lala, TECHNICAL SERVICE SPECIALIST-STEAM HAND [address] [place] [address] 2nd [place] [address] Oncology 03/17/19 Tiffanie Nguyen, TECHNICAL SERVICE SPECIALIST-GLOBAL RECRUITER [address] [place] [address] 2nd [place] [address] Family Medicine 03/17/19 Stephanie Mahoney, RN Registered Nurse 03/17/19 10/29/21 Alycia Galvan, ROSEMARY 03/17/19 10/29/21 Cesar Tavares MD [address] [place] [address] Referring Physician Medical Oncology 03/23/19 Karie Jones, RN Registered Nurse 06/08/19 10/29/21 Joy Bob 09/22/19 Addison Shea, PharmD Pharmacist 09/22/19 10/29/21 documented as of this encounter
--- OUTSIDE RECORDS SUMMARY | 2024-08-18 00:29 | XMS_ITS | Encounter Summary ---
Author Organization [facility] Address [address] [facility] [place] [address] Care Team Providers Care Student Support Advisor Name Role Phone Hillary Apple MD Unavailable [phone] Bill Ferrera MD Unavailable [phone] Tony Dumont MD Unavailable [phone] Maryjo ReinosoW Unavailable Unavailable Madyson Clay PharmD Unavailable Unavaila Dana Galicia PIPELINE TECHNICIAN-DIRECTOR COMPLIANCE Unavailable [phone] Tiffanie Nguyen APRN-GOVERNMENT PROPERTY INSPECTOR Unavailable [phone] Stephanie Mahoney RN Unavailable Unavailable Alycia Galvan RN Unavailable UnavailRan Mejía MD Primary Care Provider Cesar Tavares MD Unavailable [phone] Karie Jones RN Unavailable Unavailable Joy Bob Unavailable Fanta Addison Weinstein PharmD Unavailable Unavailab le Encounter Details Date Type Department Care Team (Late st Contact Info) Description 02/10/2020 Telephone [facility] BMT CLINIC [address] [place] [address] Tiffanie Nguyen APRN-GOVERNMENT PROPERTY INSPECTOR [address] [place] [address] Social History Tobacco Use Types [...] have Coronavirus / COVID-19? Unable to assess 02/10/2020 11:45 AM CDT documented as of this encounter [...] No 10/13/2019 documented as of this encounter Miscellaneous Notes * Telephone Encounter - Tiffanie Nguyen APRN-CNP - 02/10/2020 12:06 PM CDT ROSEMARY Brown had called Aurelio to discuss testing 02/11/20, and he informed her that he was stillhaving low grade fevers and diarrhea, just still doesn't feel back to normal following Covid. Will delay testing one week, and will plan to follow up with Aurelio mid-next week to assess symptoms prior to testing. MISSY Ball- [facility] documented in this encounter Plan of Treatment Upcoming Encounters Date Type Department Care Team (Late st Contact Info) Description 08/26/2024 11:00 AM WHITE SUGAR SYRUP OPERATOR Office Visit [facility] - Pulmonology [address] [facility] [place] [address] Andrew Francis MD [address] OF PULMONARY/[place] [address] documented as of this encounter Visit Diagnoses Not on filedocumented in this encounter Care Teams Student Support Advisor Relationship Specialty Start Date End Date Ran Nuñez MD [address] [place] [address] PCP - General Family Medicine 03/22/19 12/22/20 Hillary Apple MD [address] [place] [address] Hematology and Oncology 03/17/19 Bill Ferrera MD [address] [place] [address] Hematology and Oncology 03/17/19 08/27/21 Tony Dumont MD [address] [place] [address] Hematology and Oncology 03/17/19 Maryjo Reinoso, SENIOR IOS SOFTWARE ENGINEER Public Affairs Manager 03/17/19 Madyson Clay, PharmD 03/17/19 Dana Lala, PIPELINE TECHNICIAN-DIRECTOR COMPLIANCE [address] [place], [place] [address] 2nd [place]OR [place] [address] Oncology 03/17/19 Tiffanie Nguyen PIPELINE TECHNICIAN-GOVERNMENT PROPERTY INSPECTOR [address] [place], [place] [address] [facility] 2nd [place]OR [place] [address] Family Medicine 03/17/19 Stephanie Mahoney, RN Registered Nurse 03/17/19 10/29/21 Alycia Galvan, ROSEMARY 03/17/19 10/29/21 Cesar Tavares MD [address] [place] [address] Referring Physician Medical Oncology 03/23/19 Karie Jones, RN Registered Nurse 06/08/19 10/29/21 Joy Bob 09/22/19 Addison Shea, PharmD Pharmacist 09/22/19 10/29/21 documented as of this encounter
--- OUTSIDE RECORDS SUMMARY | 2024-08-18 00:29 | XMS_ITS | Encounter Summary ---
Author Organization [facility] Address [address] [facility] [place] [address] Care Team Providers Care Biofuels Product Manager Name Role Phone Hillary Apple MD Unavailable [phone] Bill Ferrera MD Unavailable [phone] Tony Dumont MD Unavailable [phone] Maryjo ReinosoW Unavailable Unavailable Madyson Clay PharmD Unavailable Unavaila Dana Galicia GERIATRIC ASSISTANT-LAPPING MACHINE TENDER Unavailable [phone] Tiffanie Nguyen GERIATRIC ASSISTANT-CIRCULATOR Unavailable [phone] Stephanie Mahoney RN Unavailable Unavailable Alycia Galvan RN Unavailable UnavailRan Mejía MD Primary Care Provider Cesar Tavares MD Unavailable [phone] Karie Jones RN Unavailable Unavailable Joy Bob Unavailable Fanta Addison Weinstein PharmD Unavailable Unavailab le Encounter Details Date Type Department Care Team (Latest Contact Info) Description 02/23/2020 Travel Social History Tobacco Use Types Packs/Day [...] Contact Info) Description 08/26/2024 11:00 AM AUTO RADIATOR SPECIALIST Office Visit [facility] - Pulmonology [address] [place] [address], [place] [address] Andrew Francis MD [address] [place] [address] 2L DIV OF PULMONARY/[place] [address] documented as of this encounter Visit Diagnoses Not on filedocumented in this encounter Care Teams Biofuels Product Manager Relationship Specialty Start Date End Date Ran Nuñez MD [address] [place] [address] PCP - General Family Medicine 03/22/19 12/22/20 [place] [address] [place] [address] Hematology and Oncology 03/17/19 Bill Ferrera MD [address] [place] [address] Hematology and Oncology 03/17/19 08/27/21 Tony Dumont MD [address] [place] [address] Hematology and Oncology 03/17/19 Maryjo Reinoso, DIPLOMATIC OFFICER Learning Designer 03/17/19 Madyson Clay, PharmD 03/17/19 Dana Lala, GERIATRIC ASSISTANT-LAPPING MACHINE TENDER [address] [facility] 2nd [place] [address] Oncology 03/17/19 Tiffanie Nguyen, GERIATRIC ASSISTANT-CIRCULATOR [address] [place] [address] Family Medicine 03/17/19 Stephanie Mahoney, RN Registered Nurse 03/17/19 10/29/21 Alycia Galvan, ROSEMARY 03/17/19 10/29/21 Cesar Tavares MD [address] [place] [address] Referring Physician Medical Oncology 03/23/19 Karie Jones, RN Registered Nurse 06/08/19 10/29/21 Joy Bob 09/22/19 Addison Shea, PharmD Pharmacist 09/22/19 10/29/21 documented as of this encounter
--- OUTSIDE RECORDS SUMMARY | 2024-08-18 00:29 | XMS_ITS | Encounter Summary ---
Author Organization [facility] Address [address] [facility] [place] [address] Care Team Providers Care Renal Case Manager Name Role Phone Hillary Apple MD Unavailable [phone] Bill Ferrera MD Unavailable [phone] Tony Dumont MD Unavailable [phone] Maryjo Reinoso [facility] Unavailable Unavailable Madyson Clay PharmD Unavailable Unavaila Dana Galicia DEPOSIT CLERK-WEAVER AXMINSTER Unavailable [phone] Tiffanie Nguyen APRN-DEPOSIT CLERK Unavailable [phone] Stephanie Mahoney RN Unavailable Unavailable Alycia Galvan RN Unavailable UnavailRan Mejía MD Primary Care Provider Cesar Tavares MD Unavailable [phone] Karie Jones RN Unavailable Unavailable Joy Bob Unavailable Fanta Addison Weinstein PharmD Unavailable Unavailab Alida Chang DEPOSIT CLERK-DEPOSIT CLERK Primary Care Provider Reason for Visit * Reason Comments Refill Request Encounter Details Date Type Department Care Team (Late st Contact Info) Description 02/15/2020 Refill [facility] BMT CLINIC [address] [place] [address] Tiffanie Nguyen APRN-CNP [address] [place] [address] Refill Request Social History Tobacco Use Types [...] st Contact Info) Description 08/26/2024 11:00 AM CLEANING CUSTODIAN Office Visit [facility] - Pulmonology [address] [place] [address], [place] [address] Andrew Francis MD [address] [place] [address] DIV OF PULMONARY/[place] [address] documented as of this encounter Visit Diagnoses Diagnosis Diffuse large B-cell lymphoma, unspecified body region (HCC)- Primary S/P splenectomy Other acquired absence of organ [...] COVID-19 Confirmed 03/06/2020 07/14/2020 0 4:33 AM CLEANING CUSTODIAN COVID-19 Under Investigation 03/07/2020 03/07/2020 03/09/2020 8:54 AM CDT COVID-19 Under Investigation 03/29/2020 03/29/2020 03/30/2020 9:42 AM CDT COVID-19 Confirmed 08/31/2020 08/31/2020 1 4:34 AM CLEANING CUSTODIAN COVID-19 Confirmed 09/28/2020 09/28/2020 4:33 AM CLEANING CUSTODIAN COVID-19 Under Investigation 11/16/2020 11/16/2020 11/16/2020 6:52 PM CDT COVID-19 Confirmed 11/16/2020 11/16/2020 1 4:35 AM CDT COVID-19 Under Investigation 12/20/2020 12/20/2020 12/20/2020 6:23 PM CDT documented as of this encounter Care Teams Renal Case Manager Relationship Specialty Start Date End Date Ran Nuñez MD [address] [place] [address] PCP - General Family Medicine 03/22/19 12/22/20 Alida Marshall APRN-DEPOSIT CLERK [address] [facility] [place] [address] PCP - General Family Medicine 12/23/20 08/29/21 Hillary Apple MD [facility] [place] [address] Hematology and Oncology 03/17/19 Bill Ferrera MD [address] [place] [address] Hematology and Oncology 03/17/19 08/27/21 Tony Dumont MD [address] [place] [address] Hematology and Oncology 03/17/19 Maryjo Reinoso, GRADING MACHINE OPERATOR Electrotherapist 03/17/19 Madyson Clay, PharmD 03/17/19 Dana Lala, DEPOSIT CLERK-WEAVER AXMINSTER [address] [facility] [place] [address] Oncology 03/17/19 Tiffanie Nguyen, DEPOSIT CLERK-DEPOSIT CLERK [facility] [facility] [place] [address] Family Medicine 03/17/19 Stephanie Mahoney, RN Registered Nurse 03/17/19 10/29/21 Alycia Galvan, ROSEMARY 03/17/19 10/29/21 Cesar Tavares MD [address] [place] [address] [place] [address] Referring Physician Medical Oncology 03/23/19 Karie Jones, RN Registered Nurse 06/08/19 10/29/21 Joy Bob 09/22/19 Addison Shea, PharmD Pharmacist 09/22/19 10/29/21 documented as of this encounter
--- OUTSIDE RECORDS SUMMARY | 2024-08-18 00:29 | XMS_ITS | Encounter Summary ---
Author Organization [facility] Address [address] [facility] [address] Care Team Providers Care Pick Up Attendant Name Role Phone Hillary Apple MD Unavailable [phone] Bill Ferrera MD Unavailable [phone] Tony Dumont MD Unavailable Maryjo ReinosoW Unavailable Unavailable Madyson Clay PharmD Unavailable Unavaila Dana Galicia GLASS DECORATOR-WIND TURBINE INSTALLER Unavailable [phone] Tiffanie Nguyen GLASS DECORATOR-ACOUSTICAL INSTALLER Unavailable [phone] Stephanie Mahoney RN Unavailable Unavailable Alycia Galvan RN Unavailable UnavailRan Mejía MD Primary Care Provider Cesar Tavares MD Unavailable [phone] Karie Jones RN Unavailable Unavailable Joy Bob Unavailable Fanta Addison Weinstein PharmD Unavailable Unavailab le Encounter Details Date Type Department Care Team (Latest Contact Info) Description 02/17/2020 Travel Social History Tobacco Use Types Packs/Day [...] have Coronavirus / COVID-19? Unable to assess 02/17/2020 3:09 PM CDT documented as of this encounter [...] Contact Info) Description 08/26/2024 11:00 AM SUPERVISOR PIPE FINISHING Office Visit [facility] - Pulmonology [address] [place] [address], [place] [address] Andrew Francis MD [address] [place] [address] 2L DIV OF PULMONARY/[place] [address] documented as of this encounter Visit Diagnoses Not on filedocumented in this encounter Care Teams Pick Up Attendant Relationship Specialty Start Date End Date Ran Nuñez MD [address] [place] [address] PCP - General Family Medicine 03/22/19 12/22/20 [place] [address] [place] [address] Hematology and Oncology 03/17/19 Bill Ferrera MD [address] [place] [address] Hematology and Oncology 03/17/19 08/27/21 Tony Dumont MD [address] [place] [address] Hematology and Oncology 03/17/19 Maryjo Reinoso, AUTOMOTIVE ALIGNMENT SPECIALIST Access Spec 03/17/19 Madyson Clay, PharmD 03/17/19 Dana Lala, GLASS DECORATOR-WIND TURBINE INSTALLER [address] [facility] 2nd [place] [address] Oncology 03/17/19 Tiffanie Nguyen, GLASS DECORATOR-ACOUSTICAL INSTALLER [address] [place] [address] Family Medicine 03/17/19 Stephanie Mahoney, RN Registered Nurse 03/17/19 10/29/21 Alycia Galvan, ROSEMARY 03/17/19 10/29/21 Cesar Tavares MD [address] [place] [address] Referring Physician Medical Oncology 03/23/19 Karie Jones, RN Registered Nurse 06/08/19 10/29/21 Joy Bob 09/22/19 Addison Shea, PharmD Pharmacist 09/22/19 10/29/21 documented as of this encounter
--- OUTSIDE RECORDS SUMMARY | 2024-08-18 00:29 | XMS_ITS | Encounter Summary ---
Author Organization [facility] Address [address] [place] [address] Care Team Providers Care Printed Circuit Board Assembly Repairer Name Role Phone Hlilary Apple MD Unavailable [phone] Bill Ferrera MD Unavailable [phone] Tony Dumont MD Unavailable [phone] Maryjo Reinoso BAND AID MACHINE OPERATOR Unavailable Unavailable Madyson Clay PharmD Unavailable Unavaila Dana Galicia BURN TABLE OPERATOR-MERCHANDISE HANDLER Unavailable [phone] Tiffanie Nguyen BURN TABLE OPERATOR-QUALITY PROCESS ENGINEER Unavailable [phone] Stephanie Mahoney RN Unavailable Unavailable Alycia Galvan RN Unavailable UnavailRan Mejía MD Primary Care Provider Cesar Tavares MD Unavailable [phone] Karie Jones RN Unavailable Unavailable Joy Bob Unavailable Fanta Addison Weinstein PharmD Unavailable Unavailab campbell Reason for Visit * Auth/Cert Specialty Diagnoses / Procedures Referred By Contac t Referred To Contact Diagnoses fever Referral ID Status Reason Start Date Expiration Date Visits Re quested Visits Authorized [id number] 1 1 Encounter Details Date Type Department Care Team (Late st Contact Info) Description 03/06/2020 1:00 PM CDT - 03/06/2020 2:30 PM CDT Surgery [facility] [address] [place] [id number] Elkin Rosenbaum MD [address] [place] [address] BRONCHOSCOPY BRONCHIAL LAVAGE Surgery Details Date/Time Status Location OR Service Patient Class Case Class Case Type Trauma Case? 03/06/2020 1:00 PM Posted [facility] Bronchoscopy OR Bronch Room Pulmonary Inpatient Panel 1 Procedure LRB Anes Op Region Wound Class Comments BRONCHOSCOPY BRONCHIAL LAVAGE N/A General NA Surgeon Surgeon Role Service Panel Elkin Rosenbaum MD Primary Pulmonary 1 Jorge Luis Ham MD Fellow Pulmonary 1 Krupa Raines MD Fellow Pulmonary 1 documented in this encounter Social History Tobacco [...] Sign Reading Time Taken Comments Blood Pressure 132/81 03/06/2020 12:04 PM CDT Pulse 95 03/06/2020 12:04 PM CDT Temperature 38.7 ??C (101.6 ??F) 03/06/2020 12:04 PM CDT Respiratory Rate 16 03/06/2020 12:0 4 PM CDT Oxygen Saturation 92% 03/06/2020 12: 04 PM CDT Inhaled Oxygen Concentration 60% 10/2019 12:04 PM CDT Weight 121.2 kg (267 lb 3.2 oz) 03/02/2020 9:16 AM CDT Height 170.2 cm (5' 7.01 [...] this encounter Discharge Summaries * Asim Ramirez, BURN TABLE OPERATOR-QUALITY PROCESS ENGINEER - 04/05/2020 3:27 PM CDT Patient ID: Jalil Luis [id number] 1970 Admit date: 02/25/2020 Discharge date and [...] 10 mg Oral Tablet. 20mg 04/03-04/06, 10mg , 5mg 04/11 thereafter until stim test for [...] Ultram to PRN Signed: Asim Ramirez APRN, FLAVOR MAKER-C [facility] Blood Marrow and Transplant Pager: [phone] documented in this encounter Discharge Instructions * Discharge Instructions* Asim Ramirez APRN-QUALITY PROCESS ENGINEER - 04/05/2020 3:38 PM CDT Patient Education Patient Instructions: DO NOT STOP PEN VK Your Primary MIGUEL Is: Tiffanie Your Primary certified appliance service technicianInstrument Assembler Is: Khushboo Cigarette Smoking and Your Health [...] information and support to stop smoking? ?? [employer] Systems[employer] Phone: Web Address: www.[employer].gov CARE AGREEMENT: You have the right to help plan your care. Learn about your health condition and how it may be treated. Discuss treatment options with your healthcare providers to decide what care you want to receive. You always have the right to refuse treatment. The above information is an educational advisor only. It is not intended as medical advice for individual conditions or treatments. Talk to your doctor, nurse or pharmacist before following any medical regimen to see if it is safe and effective for you. ?? Copyright [employer] 2020 Information is for End User's use only and may not be sold, redistributed or otherwise used for commercial purposes. All illustrations and images included in CareNotes?? are the copyrighted property of [employer] or [employer] documented in this encounter Medications at Time [...] (OCEAN; BABY AYR) 0.65 % nasal spray Qulin 2 sprays into each nostril every 2 [...] Care: Actual level of care at discharge: Shelter Acute Care (LTAC) Facility Name: (include name of person confirming admission): Actual discharge provider: LAURA SPAULDING [facility] Room [address] Made Aware of Special Needs (if applicable): yes - COVID +, follow med list on d/c summary note RN Call Report to:[phone] RN Fax D/C Orders to: [phone] (CM faxed orders and d/c summary note and noted to follow med list on d/c summary note and notified liaison Louise) Transportation (company and number): [employer] [phone] Certificate of Medical Necessity rationale: HFNC, COVID+ Date/time of transfer: 04/05/2020 at 1800 Accepting MD: Dr. Eng Completed and Signed UF251I (if applicable): n/a Family/Other Notified of Transfer (name/phone): notified patient by phone, he will notify his family Authorization Skilled Care: [facility] obtained Authorization for Transportation: Verified Qualifying Stay(Skilled Only): NOT APPLICABLE Comments: Alecia Melissa RN * Asim Ramirez, BURN TABLE OPERATOR-QUALITY PROCESS ENGINEER - 04/05/2020 9:21 AM CDT Autologous Hematopoietic [...] 111/88 Pulse: 103 107 106 106 Resp: Temp: 98.4 ??F 98.4 ??F 97.9 ??F SpO2: 98% 99% 99% 98% Weight: Height: Wt Readings from Last 3 Encounters: 03/30/20 113.7 kg (250 lb 10.6 oz) 02/26/20 120.2 kg (265 lb) 11/15/19 123.4 kg (272 lb) Date 04/04/20699 - 04/05/20 0659 04/05/20699 - 04/06/20 0659 Shift 7760-5950 3953-0967 24 Hour Total 9526-0750 6037-4476 24 Hour Total INTAKE P.O. 2650 150 [...] interval not displayed. Recent Labs Component Name 04/05/20 0003 04/03/20 0533 03/31/20 0040 BUN 18 18 21 CREATININE 0.8 [...] that time -Covid from bronch 03/07 and POTTERY KILN BUILDER swab 03/07 both positive -received remdesivir 03/08 [...] cell Caregiver: sister, girlfriend Preferred D/C Pharmacy: [facility] Intended lodging: home Referring provider: Cesar Tavares Disposition: Remain on 7N. Discharge LTAC today pending bed availability Asim Ramirez APRN, FLAVOR MAKER-C [facility]row [facility] Transplant Pager: [phone] I independently interviewed and examined??Jalil Luis??with the [...] ?? Dispo: Should have room available at LTAC today, they could not accept yesterday No need for routine labs Need contact info for LTAC for outpatient team to be able to communicate ?? RTC to IgG along with basic labs and inflamm markers Will need CoViD swab upon return along with isolation until swab negative ? Hillary Apple MD MSc technician test systems Interim Director, Division of Hematology/Oncology [facility] * Alecia Melissa RN - 04/04/2020 3:36 [...] 11/15/19 123.4 kg (272 lb) Date 04/03/20 0700 - 04/04/20 0604/04/20699 - 04/05/20 0659 Shift 1983-6812 3379-0169 24 Hour Total 4783-1019 1083-8484 24 Hour Total INTAKE P.O. 3240 300 [...] 1.9 1.9 2.0 Recent Labs Component Name 04/03/20 0533 03/31/20 0040 03/29/20 0024 PHOS 4.6 4.0 4.4 Recent Labs Component Name 04/03/20 0533 03/31/20 0000 03/29/20 0024 CRP 1.7* 2.9* 3.1* LDH Total Date Value Ref Range Status 04/03/2020 372 (H) 125 - 243 Units/L Final 03/31/2020 450 (H) 125 - 243 Units/L Final 03/29/2020 428 (H) 125 - 243 Units/L Final Recent Labs Component Name 04/03/20 0533 03/31/20 0000 03/29/20 0024 FERRITIN 467* 518* 626* Recent Labs Component Name 04/03/20 0533 03/31/20 0020 03/29/20 0024 ESR 88* 77* [...] that time -Covid from bronch 03/07 and POTTERY KILN BUILDER swab 03/07 both positive -received remdesivir 03/08 [...] cell Caregiver: sister, girlfriend Preferred D/C Pharmacy: [facility] Intended lodging: home Referring provider: Cesar Tavares Disposition: Remain on 7N. Plan to have bed available and be discahrged to LT tomorrow Vane Romero BURN TABLE OPERATOR, FLAVOR MAKER-C Bone Marrow Transplant [facility] I independently interviewed and examined??Jalil Luis??with the [...] ?? Dispo: Should have room available at [facility] today No need for routine labs Need contact info for [facility] for outpatient team to be able to communicate ?? RTC to IgG along with basic labs and inflamm markers Will need CoViD swab upon return along with isolation until swab negative ? Hillary Apple MD MSc technician test systems Interim Director, Division of Hematology/Oncology [facility] * Kristina Field, PT - 04/04/2020 1:36 PM CDT [facility] Physical Medicine and Rehabilitation PhysicalTherapy Progress Note Patient: Jalil Luis Med Record Number: [id number] Date of : 1970 Age: [age] year old CO-[place] with OT 2/2 level of skilled assist needed for O2 management Patient is COVID-19 positive. PPE donned by therapist throughout session - disposable gown, gloves, N95 mask, eye protection, faceshield, hair net, alva cover and shoe covers. Discharge Recommendation: Patient will benefit from multidisciplinary inpatient therapies. (LTAC) Subjective: I'm doing okay. Pt agreeable to [...] with Stand By Assist??and appropriate AD (updated 04/04/20) Patient will ascend/descend??10??steps: Stand By Assist??and hand rail assist?? Patient will perform home exercise program independently ?? Shelter Goal(s): Patient to be independent/baseline with functional [...] Cortez, OT - 04/04/2020 1:28 PM CDT [facility] Physical Medicine and Rehabilitation Occupational Therapy Progress Note Patient: Jalil Luis Med Record Number: [id number] Date of : 1970 Age: [age] year [...] Patient will perform toileting?With modified independence ?? Shelter Goal:Patient to discharge to appropriate next level [...] per nutrition guidelines. Jocelin Griggs MA, RD, LDN [employer]/ Pager: [phone] * Izzy Garcia RN - 04/04/2020 12:35 PM CDT Being discharged to custodial facility to manage O2 weaning. Discharged on O2. Will continue PT/OT for increase strength and endurance. Continues isolation for + covid. Remain at risk for fall.Sent home with information on smoking cessation * Kristina Field, PT - 04/03/2020 4:38 PM CDT [facility] Physical Medicine and Rehabilitation PhysicalTherapy Progress Note Patient: Jalil Luis Med Record Number: [id number] Date of : 1970 Age: [age] year [...] will perform home exercise program independently ?? Shelter Goal(s): Patient to be independent/baseline with functional [...] in room. Kristina Field, PT 04/03/2020 * Inag Cortez, OT - 04/03/2020 3:00 PM CDT [facility] Physical Medicine and Rehabilitation Occupational Therapy Progress Note Patient: Jalil Luis Med Record Number: [id number] Date of : 1970 Age: [age] year [...] good! I made it here (to the [facility]! At start of therapy session, patient found [...] independence Patient will perform toileting?With modified independence Generator Mechanic Goal:Patient to discharge to appropriate next level of inpatient care If patient is discharged from the facility, this note serves as a discharge note if further occupational therapy visits did not occur. Following therapy session, patient left in bed, with call light within reach, with RNIzzy aware and with RN/CP rehab cues written on white board. Inga Cortez OT * Alecia Melissa RN - 04/03/2020 10:02 AM CDT CM checked in with Louise from [facility]. They still don't have a bed available for pt. Will continue to follow. Update 1344: CM notified by Louise with [facility] they will have a bed for patient tomorrow at [facility]. Team updated, will continue to follow. * Rafaela Sood, BURN TABLE OPERATOR-QUALITY PROCESS ENGINEER - 04/03/2020 7:09 AM CDT Autologous Hematopoietic [...] Gets up during the day Placement at AC approved, bed in neg pressure room should [...] 0659 04/03/20 07 - 04/04/20 0659 Shift 2495-8181 0793-9420 24 Hour Total 8065-4381 9983-3178 24 Hour Total INTAKE P.O. 1200 0 1200 Shift Total(mL/kg) 1200(10.6) 0(0) 1200(10.6) OUTPUT Urine(mL/kg/hr) 7809(5.7) 500(0.4) 8309(3) Shift Total(mL/kg) 7809(68.7) 500(4.4) 8309(73.1) [facility]7960 -436 -5853 Weight (kg) 113.7 113.7 113.7 113.7 113.7 [...] that time -Covid from bronch 03/07 and POTTERY KILN BUILDER swab 03/07 both positive -received remdesivir 03/08 [...] cell Caregiver: sister, girlfriend [facility] Intended lodging: home Referring provider: Cesar Tavares Disposition: Remain inpatient at [facility] for O2 support, placement in LTAC approved although waiting for negative pressure room to become available Eli Sood APRN, FLAVOR MAKER-C Bone Marrow Transplant [facility] I independently interviewed and examined Jalil Luis [...] neg pressure room Hillary Apple MD MSc technician test systems Interim Director, Division of Hematology/Oncology [facility] * Darcy Lutz RN - 04/02/2020 11:51 [...] lb) 11/15/19 123.4 kg (272 lb) Date 04/01/20699 - 04/02/20 0659 04/02/20 07 - 04/03/20 0659 Shift 7229-3903 3205-3442 24 Hour Total 1701-1381 2317-0220 24 Hour Total INTAKE Shift Total(mL/kg) OUTPUT [...] that time -Covid from bronch 03/07 and POTTERY KILN BUILDER swab 03/07 both positive -received remdesivir 03/08 [...] provider: Cesar Tavares Disposition: Remain inpatient at [facility] for O2 support, placement in LTAC approved although waiting for negative pressure room to become available Asim Ramirez APRN, FLAVOR MAKER-C [facility] Blood Marrow and Transplant Pager: [phone] I personally eamined Mr. Jalil Luis. I also discussed the assessment and plan in detail with the team on rounds. I made some modifications to the above note. I fully concur with the above assessment and plan. Ezio Segal MD Airplane Technician Department of Internal Medicine Division of Hematology [...] Reports stable bowel and bladder Placement at [facility] has been approved, waiting for neg [...] 0659 04/01/20 07 - 04/02/20 0659 Shift 5447-1889 2979-9720 24 Hour Total 0825-4093 1183-1523 24 Hour Total INTAKE P.O. 5189 317 7586 Shift Total(mL/kg) 1040(9.1) 240(2.1) 1280(11.3) OUTPUT Urine(mL/kg/hr) [...] interval not displayed. Recent Labs Component Name 03/31/203903/29/204 03/27/20 0607 BUN 21 19 21 CREATININE [...] >60 >60 >60 Recent Labs Component Name 03/31/200 03/29/20 0024 03/27/20 0607 MAGNESIUM 1.9 2.0 1.7 Recent Labs Component Name 03/31/200 03/29/20 0024 03/27/20 0607 PHOS 4.0 4.4 [...] that time -Covid from bronch 03/07 and POTTERY KILN BUILDER swab 03/07 both positive -received remdesivir 03/08 [...] swelling -unlikely DVT given current ACT -? 22 known COVID vs steroid taper -Celebrex 100mg [...] cell Caregiver: sister, girlfriend Preferred D/C Pharmacy: [facility] Intended lodging: home Referring provider: Cesar Tavares Disposition: Remain on 8S for O2 support, working on placement in LTAC given likely prolonged weaning of oxygen Asim Ramirez APRN, FLAVOR MAKER-C [facility] Blood Marrow and Transplant Pager: [phone] I personally reviewed Mr. Jalil Luis . I also discussed the assessment and plan in detail with the team on rounds . I made some modifications to the above note. I fully concur with the above assessment and plan. Ezio Segal MD Airplane Technician Department of Internal Medicine Division of Hematology Oncology * Amy Anderson, PT - 03/31/2020 2:06 PM CDT [facility] Physical Medicine and Rehabilitation PhysicalTherapy Progress Note Patient: Jalil Luis Med Record Number: [id number] Date of : 1970 Age: [age] year [...] will perform home exercise program independently ?? Shelter Goal(s): Patient to be independent/baseline with functional [...] reach and with RN, Keena lowery. Amy Anderson PT 03/31/2020 * Amy Baker OT - 03/31/2020 2:06 PM CDT [facility] Physical Medicine and Rehabilitation Occupational Therapy Progress Note Patient: Jalil Luis [facility] Record Number: [id number] Date of : 1970 Age: [age] year old Co-Tx w/ PT Patient is COVID-19 positive. PPE donned by therapist throughout session - disposable gown, gloves, N95 mask, eye protection, faceshield, hair net, alva cover and shoe covers. Tech: N/A Discharge Recommendation: Patient will benefit from multidisciplinary inpatient therapies (LTAC). Precautions: covid+ Subjective: I have been accepted at [facility]! Patient is pleasant & motivated. At start [...] independence Patient will perform toileting?With modified independence Generator Mechanic Goal:Patient to discharge to appropriate next level of inpatient care If patient is discharged from the facility, this note serves as a discharge note if further occupational therapy visits did not occur. Following therapy session, patient left in bed, with call light within reach and with RN/CP rehab cues written on white board. Amy Baker OT * Asim Ramirez, BURN TABLE OPERATOR-QUALITY PROCESS ENGINEER - 03/31/2020 8:41 AM CDT Autologous Hematopoietic [...] lb) Date 03/30/20 07 - 03/31/20 0659 03/31/20699 - 04/01/20 0659 Shift 4521-5981 4801-4533 24 Hour Total 8666-0431 2443-6113 24 Hour Total INTAKE P.O. 770 770 [...] that time -Covid from bronch 03/07 and POTTERY KILN BUILDER swab 03/07 both positive -received remdesivir 03/08 [...] -started long acting beta agonist/corticosteroid (symbicort) 03/22 -22 COVID, see above -intubated 03/06/20 -03/08/20 -Bronch'd [...] cell Caregiver: sister, girlfriend Preferred D/C Pharmacy: [facility] Intended lodging: home Referring provider: Cesar Tavares Disposition: Remain on 8S for O2 support, working on placement in LTAC given likely prolonged weaning of oxygen Asim Ramirez APRN, FLAVOR MAKER-C [facility] Blood Marrow and Transplant Pager: [phone] I independently interviewed and examined Jalil Luis [...] PT everyday Still working on new LTAC Sagun D. Zechariah, MD MSc technician test systems Interim Director, Division of Hematology/Oncology [facility] * Keena Hernandez, RN - 03/31/2020 8:29 AM CDT Problem: [...] Aldana RN - 03/31/2020 7:40 AM CDT [facility] has received authorization from insurance. Placement is pending an open negative pressure room at [facility]. Cm to follow Sissy Aldana RN, BSN Finance Attorney [phone] * Amy Anderson, PT - 03/30/2020 2:15 PM CDT [facility] Physical Medicine and Rehabilitation PhysicalTherapy Progress Note Patient: Jalil Luis Med Record Number: [id number] Date of : 1970 Age: [age] year [...] will perform home exercise program independently ?? Generator Mechanic Goal(s): Patient to be independent/baseline with functional [...] PM CDT COVID test is resulted and Laura is aware of results. Patient will just require a negative pressure room at [facility] for this. Per Louise with [facility], insurance authorization is still pending. Sissy Aldana RN, BSN Finance Attorney [phone] * Keena Hernandez RN - 03/30/2020 8:13 [...] Outcome: Ongoing * Inga Cortez, OT - 03/30/2020 8:08 AM CDT [facility] Physical Medicine and Rehabilitation Occupational Therapy Progress Note Patient: Jalil Luis [facility] Record Number: [id number] Date of : 1970 Age: [age] year [...] independence Patient will perform toileting?With modified independence Shelter Goal:Patient to discharge to appropriate next level of inpatient care If patient is discharged from the facility, this note serves as a discharge note if further occupational therapy visits did not occur. Following therapy session, patient left in bed, with call light within reach, with RNKeena aware and with RN/CP rehab cues written on white board. Inga Cortez OT * Keli Case, BURN TABLE OPERATOR-QUALITY PROCESS ENGINEER - 03/30/2020 7:45 AM CDT Autologous Hematopoietic [...] with increased activity Eating and drinking ok grain farmworker working on facility placement Denies chest pain, [...] 10.6 oz) 02/26/20 120.2 kg (265 lb) 04/13/20 123.4 kg (272 lb) Date 03/29/20 07 - 03/30/20 0659 03/30/20699 - 03/31/20 0659 Shift 0630-0659 5382-9693 24 Hour Total 7871-9017 2893-5764 24 Hour Total INTAKE P.O. 2200 2200 [...] interval not displayed. Recent Labs Component Name 03/29/204 03/27/20 0607 03/24/20 0029 BUN 19 21 20 CREATININE 0.8 0.9 0.9 NA 141 [...] that time -Covid from bronch 03/07 and POTTERY KILN BUILDER swab 03/07 both positive -received remdesivir 03/08 [...] swelling -unlikely DVT given current ACT -? 22 known COVID vs steroid taper -Celebrex 100mg [...] cell Caregiver: sister, girlfriend Preferred D/C Pharmacy: [facility] Intended lodging: home Referring provider: Cesar Tavares Disposition: Remain on 8S for O2 support, working on placement in LTAC given likely prolonged weaning of oxygen LUI[facility]- Blood and Marrow Transplant [facility] I independently interviewed and examined Jalil Luis [...] LTAC demanding large out of pocket payment video coordinator working with new facility - need to confirm they will take COViD+ patient, swab 03/29 positive Hillary Apple MD MSc technician test systems Interim Director, Division of Hematology/Oncology [facility] * Rylee Coreas, RN - 03/29/2020 9:24 PM CDT Problem: Pain/Discomfort [...] Outcome: Ongoing * Inga Cortez OT - 03/29/2020 2:17 PM CDT [facility] Physical Medicine and Rehabilitation Occupational Therapy Progress Note Patient: Jalil Luis [facility] Record Number: [id number] Date of : 1970 Age: [age] year [...] independence Patient will perform toileting?With modified independence Generator Mechanic Goal:Patient to discharge to appropriate next level of inpatient care If patient is discharged from the facility, this note serves as a discharge note if further occupational therapy visits did not occur. Following therapy session, patient left in bed, with call light within reach, with RNFLORI aware and with RN/CP rehab cues written on white board. Inga Cortez, DANIEL * Amy Anderson, PT - 03/29/2020 2:10 PM CDT [facility] Physical Medicine and Rehabilitation PhysicalTherapy Progress Note ? Patient: Jalil Luis [facility] Record Number: [id number] Date of : 1970 Age: [age] year [...] will perform home exercise program independently ?? Shelter Goal(s): Patient to be independent/baseline with functional [...] ?? Amy Anderson, PT 03/29/2020 * Alecia Aldana RN - 03/29/2020 1:04 PM CDT AMPARO called and spoke with [facility] [phone] regarding LTAC. She confirmed they have approved his stay at LTAC but have approved it at out of network costs. She has no information for CM to check onstatus of single case agreement. Spoke with Jessica with [facility]. They are still awaiting [facility] to call [facility] corporate to negotiate a single case agreement to treat him as an in-network case due to his special circumstances of his mother dying at [facility]. AMPARO asked Jessica with LTAC to check with management about patient going to LTAC prior to this approval for in network cost and continuing to work on this while he is at LTAC or discuss if patient is okay with paying out of network costs for LTAC and if LTAC will accept this (AMPARO spoke with patient andhe isn't sure exactly how much his out of pocket will cost). Addendum 2:30- patient notified CM that he will go to Laura at [facility] but just not [facility]. Louise with [facility] notified and they will have to submit for authorization under their NPI. Authorization shouldn't take as long as it has already been approved previously for LTAC level of care. Laura asking to have new COVID test completed. Messaged BMT to make aware. CM continuing to follow Sissy Aldana RN, BSN Finance Attorney [phone] * Keli Case APRN-QUALITY PROCESS ENGINEER - 03/29/2020 6:49 AM CDT Autologous Hematopoietic [...] Nostril, q2h PRN VITALS: Vitals: 03/28/20 1602 03/28/20199903/29/20 0017 03/29/20 0427 BP: 139/95 130/91 122/86 139/80 Pulse: 102 102 97 98 Resp: Temp: 97.9 ??F 98.7 ??F 98.3 ??F 98.2 ??F SpO2: 97% 100% 99% 100% Weight: Height: Wt Readings from Last 3 Encounters: 03/25/20 114 kg (251 lb 5.2 oz) 02/26/20 120.2 kg (265 lb) 11/15/19 123.4 kg (272 lb) Date 03/28/20 07 - 03/29/20 0659 03/29/20 07 - 03/30/20 0659 Shift 8539-7501 2868-7092 24 Hour Total 5950-7163 0328-3492 24 Hour Total INTAKE P.O. 2520 2520 I.V.(mL/kg/hr) 102(0.1) 102 Shift Total(mL/kg) 2622(23) 2622(23) OUTPUT Urine(mL/kg/hr) 2260(1.7) 850 3110 Shift Total(mL/kg) 2260(19.8) 850(7.5) 3110(27.3) NET 359 -591 -638 Weight (kg) 114 114 114 114 114 [...] 03/29/20 0024 03/27/20 0607 03/24/20 0029 BUN 19 21 20 CREATININE 0.8 0.9 0.9 NA 141 [...] that time -Covid from bronch 03/07 and POTTERY KILN BUILDER swab 03/07 both positive -received remdesivir 03/08 [...] cell Caregiver: sister, girlfriend Preferred D/C Pharmacy: [facility] Intended lodging: home Referring provider: Cesar Tavares Disposition: Remain on 8S for O2 support, working on placement in LTAC given likely prolonged weaning of oxygen Keli Evie, AGNP-BC Blood and Marrow Transplant [facility] I independently interviewed and examined Jalil Luis [...] agreement with LTAC Hillary Apple MD MSc technician test systems Interim Director, Division of Hematology/Oncology [facility] * Katty Zuniga, ROSEMARY - 03/29/2020 3:50 AM CDT Problem: Fall [...] current diet Monitor nutrition per nutrition guidelines. oJcelin Griggs MA, JHON, LDN Pager: [phone] * Amy Anderson, PT - 03/28/2020 9:20 AM CDT [facility] Physical Medicine and Rehabilitation PhysicalTherapy Progress Note Patient: Jalil Luis Med Record Number: [id number] Date of : 1970 Age: [age] year [...] will perform home exercise program independently ?? Shelter Goal(s): Patient to be independent/baseline with functional [...] within reach and with RNFlori aware. Amy Anderson, PT 03/28/2020 * Inga Cortez, OT - 03/28/2020 9:18 AM CDT [facility] Physical Medicine and Rehabilitation Occupational Therapy Progress Note Patient: Jalil Luis Med Record Number: [id number] Date of : 1970 Age: [age] year [...] Patient will perform toileting?With modified independence ?? Generator Mechanic Goal:Patient to discharge to appropriate next level of inpatient care If patient is discharged from the facility, this note serves as a discharge note if further occupational therapy visits did not occur. Following therapy session, patient left in bed, with call light within reach, with RNFlori aware and with RN/CP rehab cues written on white board. Inga Cortez OT * Alecia Aldana RN - 03/28/2020 9:07 AM CDT Message left with Jessica at [facility] to follow up on status of authorization. Addendum- [facility] corporate is waiting for a return call from [facility] to discuss negotiation for contract. CM to follow Sissy Aldana RN, BSN Finance Attorney [phone] * Asim Ramirez, JOSE DAVID-QUALITY PROCESS ENGINEER - 03/28/2020 7:14 AM CDT Autologous Hematopoietic [...] kg (272 lb) Date 03/27/20699 - 03/28/20 0659 03/28/20699 - 03/29/20 0659 Shift 5583-4488 4174-1037 24 Hour Total 2638-1199 7530-4344 24 Hour Total INTAKE P.O. 840 840 [...] Labs Component Name 03/27/20 0607 03/24/20 0029 03/22/206 BUN 21 20 15 CREATININE 0.9 0.9 [...] that time -Covid from bronch 03/07 and POT[employer] BU[employer]DER swab 03/07 both positive -received remdesivir 03/08 [...] cell Caregiver: sister, girlfriend Preferred D/C Pharmacy: [facility] Intended lodging: home Referring provider: Cesar Tavares Disposition: Remain on 8S for O2 support, working on placement in LTAC given likely prolonged weaning of oxygen Asim Ramirez APRN, FLAVOR MAKER-C [facility] Blood Marrow and Transplant Pager: [phone] I independently interviewed and examined Jalil Luis [...] agreement with LTAC Hillary Apple MD MSc technician test systems Interim Director, Division of Hematology/Oncology [facility] * Katty Zuniga RN - 03/28/2020 2:16 [...] Outcome: Ongoing * Inga Cortez, OT - 03/27/2020 2:08 PM CDT [facility] Physical Medicine and Rehabilitation Occupational Therapy Progress Note Patient: Jalil Luis Med Record Number: [id number] Date of : 1970 Age: [age] year [...] independence Patient will perform toileting?With modified independence Generator Mechanic Goal:Patient to discharge to appropriate next level of inpatient care If patient is discharged from the facility, this note serves as a discharge note if further occupational therapy visits did not occur. Following therapy session, patient left in bed, with call light within reach, with RNFlori aware and with RN/CP rehab cues written on white board. Inga Cortez OT * Amy Anderson, PT - 03/27/2020 1:55 PM CDT [facility] Physical Medicine and Rehabilitation PhysicalTherapy Progress Note ?Patient: Jalil Luis? Med Record Number: [id number] ??Date of : 1970?Age: [age] year old [...] will perform home exercise program independently ?? Shelter Goal(s): Patient to be independent/baseline with functional [...] call light within reach and with RN Flori aware. ?? Amy Anderson, PT 03/27/2020? * Alecia Aldana RN - 03/27/2020 11:37 AM CDT Spoke with Jessica at [facility] this AM. Authorization is still pending with insurance. Addendum 12:50- Precert with insurance approved, [facility] is working on single case agreement with insurance now. CM will continue to follow Sissy Aldana RN, BSN Finance Attorney [phone] * Kofi Ramirezel Giovanna, BURN TABLE OPERATOR-QUALITY PROCESS ENGINEER - 03/27/2020 7:26 AM CDT Autologous Hematopoietic [...] lb) 11/15/19 123.4 kg (272 lb) Date 03/26/20699 - 03/27/20 0659 03/27/20699 - 03/28/20 0659 Shift 3753-7650 8613-5098 24 Hour Total 8648-6357 4773-3411 24 Hour Total INTAKE P.O. 1919 1919 I.V.(mL/kg/hr) 303.4(0.2) 101.1(0.1) 404.5(0.1) Shift Total(mL/kg) 2223.4(19.5) [...] that time -Covid from bronch 03/07 and POT[employer] BUILDER swab 03/07 both positive -received remdesivir 03/08 - 03/12 & convalescent plasma 03/10 -given overall stability will check labs every MWF at this point -CXR appears somewhat improved 03/20 vs 03/10 -following discussion with pulm pt will likely benefit from longer steroid taper than outlined in [facility]+ protocol -steroids switched to pred 03/18 [...] swelling -unlikely DVT given current ACT -? 2 known COVID vs steroid taper -Celebrex 100mg [...] prolonged weaning of oxygen Asim Ramirez APRN, FLAVOR MAKER-C [facility] Blood Marrow and Transplant Pager: [phone] I independently interviewed and examined Jalil Luis [...] VK/Bactrim/VCV Requip Lexapro B1/VitC/zinc per MATH protocol Scheduled albuterol At this point, Aurelio would be done with AC for UE DVT However, in light of CoViD and prolonged stay, would be good to keep some amt of AC going Decide upon transition when to repeat chest imaging Working with PT everyday SW working on single case agreement with LTAC Hillary Apple MD MSc technician test systems Interim Director, Division of Hematology/Oncology [facility] * Bill Ferrera MD - 03/26/2020 6:53 [...] 0659 03/26/20 07 - 03/27/20 0659 Shift 0952-4287 3163-7261 24 Hour Total 2411-6206 3790-7703 24 Hour Total INTAKE I.V.(mL/kg/hr) 112.6(0.1) 99.7(0.1) [...] interval not displayed. Recent Labs Component Name 03/24/202803/22/206 03/21/20212 BUN 20 15 16 CREATININE 0.9 0.8 [...] >60 >60 Recent Labs Component Name 03/24/20 00203/22/20 0046 03/21/20212 MAGNESIUM 1.8 2.0 1.9 Recent Labs Component Name 03/24/20 0029 03/22/20 0046 03/21/20212 PHOS 4.1 3.9 3.9 Recent Labs Component Name 03/24/20 0029 03/22/20 0046 03/21/20212 CRP 2.2* 3.0* 3.2* LDH Total Date Value Ref Range Status 03/24/2020 369 (H) 125 - 243 Units/L Final 03/22/2020 390 (H) 125 - 243 Units/L Final 03/20/2020 395 (H) 125 - 243 Units/L Final Recent Labs Component Name 03/24/20 00203/22/20 0046 03/20/20 0844 FERRITIN 658* 737* 703* [...] that time -Covid from bronch 03/07 and POT[employer] BUILDER swab 03/07 both positive -received remdesivir 03/08 - 03/12 & convalescent plasma 03/10 -given overall stability will check labs every MWF at this point -CXR appears somewhat improved 03/20 vs 03/10 -following discussion with pulm pt will likely benefit from longer steroid taper than outlined in [facility]+ protocol -steroids switched to pred 03/18 [...] swelling -unlikely DVT given current ACT -? 2 known COVID vs steroid taper -BCx negative [...] Courtney Intended lodging: home Referring provider: Cesar Chaitanya Disposition: Remain on 8S for O2 support, working on placement in LTAC given likely prolonged weaning of oxygen Tiffanie Nguyen, FLAVOR MAKER- Blood and Marrow Transplant Clinic [facility] Condition stable No specific heme/onc, BMT management I reviewed Jalil Bullock case with Tiffanie Nguyen POTTERY KILN BUILDER, reviewed the note, and participated in all of the medical decisions. Bill Ferrera M.D. Director, Blood and Marrow Transplantation Senior Process Engineer, Department of Internal Medicine [facility] * Katty Zuniga RN - 03/26/2020 4:22 [...] lb) 11/15/19 123.4 kg (272 lb) Date 03/24/20699 - 03/25/20 0603/25/20699 - 03/26/20 0659 Shift 2550-0809 4761-4690 24 Hour Total 9835-2952 0858-8989 24 Hour Total INTAKE P.O. 1580 1580 I.V.(mL/kg/hr) 307.3 307.3 Shift Total(mL/kg) 1580(14.2) 307.3(2.7) 1887.3(16.6) OUTPUT Urine(mL/kg/hr) 1070(0.8) 900 1969 Shift Total(mL/kg) 1070(9.6) 900(7.9) 1969(17.3) NET 510 -592.7 -82.7 Weight (kg) 111.5 [...] not displayed. Recent Labs Component Name 03/24/20 00203/22/206 03/21/20212 BUN 20 15 16 CREATININE 0.9 0.8 [...] Labs Component Name 03/24/20 0029 03/22/20 0046 03/21/20212 MAGNESIUM 1.8 2.0 1.9 Recent Labs Component Name 03/24/20 00203/22/20 0046 03/21/20212 PHOS 4.1 3.9 3.9 Recent Labs Component Name 03/24/20 00203/22/20 0046 03/21/20212 CRP 2.2* 3.0* 3.2* LDH Total Date [...] that time -Covid from bronch 03/07 and POTTERY KILN BUILDER swab 03/07 both positive -received remdesivir 03/08 [...] -started long acting beta agonist/corticosteroid (symbicort) 03/22 -2/ COVID, see above -intubated 03/06/20 -03/08/20>>now on [...] 2/2 known COVID vs steroid taper -BCx drawn [...] JIE BallP- Blood and Marrow Transplant Clinic [facility] I reviewed Jalil Bullock case with Tiffanie Nguyen POTTERY KILN BUILDER, reviewed the note, and participated in all of the medical decisions. Bill Ferrera M.D. Director, Blood and Marrow Transplantation Senior Process Engineer, Department of Internal Medicine [facility] * Katty Zuniga RN - 03/25/2020 4:47 AM CDT Problem: Isolation Goal: Prevent Transmission of Infection Outcome: Ongoing Problem: Impaired Gas Exchange Goal: Resp rate/effort will be within specified limits Outcome: Ongoing * Vania Crane OT - 03/24/2020 2:04 PM CDT [facility] Physical Medicine and Rehabilitation Occupational Therapy Progress Note Patient: Jalil Lius Med Record Number: [id number] Date of : 1970 Age: [age] year [...] independence Patient will perform toileting?With modified independence Generator Mechanic Goal:Patient to discharge to appropriate next level of inpatient care If patient is discharged from the facility, this note serves as a discharge note if further occupational therapy visits did not occur. Following therapy session, patient left in bed, with call light within reach and with RN, Dieter lowery. Vania Crane OT * Amy Anderson PT - 03/24/2020 1:55 PM CDT [facility] Physical Medicine and Rehabilitation PhysicalTherapy Progress Note ? Patient: Jalil Luis [facility] Record Number: [id number] Date of : 1970 Age: [age] year [...] will perform home exercise program independently ?? Generator Mechanic Goal(s): Patient to be independent/baseline with functional [...] light within reach and with RN Dieter lowery. ?? Amy Anderson, PT 03/24/2020 * Alecia Aldana RN - 03/24/2020 11:51 AM CDT Case Management Progress Note Anticipated level of care at discharge: Generator Mechanic Acute Care (LTAC) Discharge Plan: Patient admitted with COVID and hypoxia. Patient is currently on high flow nasal cannula and full face CPAP. CM is working on LTAC placement at discharge. [facility] is out of network with his insurance but he is not willing to go to [facility] due to losing a family member at [facility]. [facility] has submitted to insurance for authorization/approval for a single case agreement ref #[id number]. Jessica with [facility] stated authorization is still pending. Basic Needs Assessment (BNA) Score: 9 Complex Needs Assessment (THUMB SEWER) Score: N/A Social Support Domain Score: Medical [...] = 21 no redness noted. * Asim Ramirez APRN-QUALITY PROCESS ENGINEER - 03/24/2020 8:58 AM CDT Autologous Hematopoietic [...] Pulse: 102 96 (!) 116 108 Resp: Temp: 98.1 ??F 98 ??F 97.9 ??F SpO2: 99% 98% 97% 98% Weight: Height: Wt Readings from Last 3 Encounters: 03/23/20 111.5 kg (245 lb 13 oz) 02/26/20 120.2 kg (265 lb) 11/15/19 123.4 kg (272 lb) Date 03/23/20 07 - 03/24/20 0659 03/24/20 07 - 03/25/20 0659 Shift 1164-2110 0500-1037 24 Hour Total 5302-4907 1741-8897 24 Hour Total INTAKE P.O. 590 590 [...] interval not displayed. Recent Labs Component Name 03/24/202803/22/206 03/21/20212 BUN 20 15 16 CREATININE 0.9 0.8 [...] >60 >60 Recent Labs Component Name 03/24/20 00203/22/20 0046 03/21/20 0213 MAGNESIUM 1.8 2.0 1.9 Recent Labs Component Name 03/24/20 00203/22/20 0046 03/21/20212 PHOS 4.1 3.9 3.9 Recent Labs Component Name 03/24/20 0029 03/22/20 0046 03/21/203 CRP 2.2* 3.0* 3.2* LDH Total Date [...] that time -Covid from bronch 03/07 and POTTERY KILN BUILDER swab 03/07 both positive -received remdesivir 03/08 - 03/12 & convalescent plasma 03/10 -given overall stability will check labs every MWF at this point -CXr appears somewhat improved 03/20 vs 03/10 -following discussion with pulm pt will likely benefit from longer steroid taper than outlined in [facility]+ protocol -steroids switched to pred 03/18 [...] cell Caregiver: sister, girlfriend Preferred D/C Pharmacy: [facility] Intended lodging: home Referring provider: Cesar Tavares Disposition: Remain on 8S for O2 support, working on placement in LTAC given likely prolonged weaning of oxygen Asim Ramirez APRN, FLAVOR MAKER-C [facility] Blood Marrow and Transplant Pager: [phone] Associated attestation - Tony Dumont MD - [...] to wean him off oxygen. * Inga Cortez OT - 03/23/2020 2:53 PM CDT [facility] Physical Medicine and Rehabilitation Occupational Therapy Progress Note Patient: aJlil Luis Med Record Number: [id number] Date of : 1970 Age: [age] year [...] independence Patient will perform toileting?With modified independence Shelter Goal:Patient to discharge to appropriate next level of inpatient care If patient is discharged from the facility, this note serves as a discharge note if further occupational therapy visits did not occur. Following therapy session, patient left in bed, with call light within reach, with Keena RILEY aware and with RN/CP rehab cues written on white board. Inga Cortez OT * Amy Anderson, PT - 03/23/2020 2:53 PM CDT [facility] Physical Medicine and Rehabilitation PhysicalTherapy Progress Note Patient: Jalil Luis Med Record Number: [id number] Date of : 1970 Age: [age] year [...] will perform home exercise program independently ?? Generator Mechanic Goal(s): Patient to be independent/baseline with functional [...] RN - 03/23/2020 11:06 AM CDT [facility] has submitted information to insurance for single case agreement. [facility] will update CM once more information is available. Authorization started with insurance ref # [id number] for approval with single case agreement. Sissy Aldana RN, BSN Finance Attorney [phone] * Asim Ramirez APRN-CNP - 03/23/2020 8:06 AM CDT Autologous Hematopoietic [...] 147/98 Pulse: 84 80 85 86 Resp: Temp: 97.9 ??F 98.4 ??F 97.8 ??F SpO2: 95% 96% 95% 90% Weight: 111.5 kg (245 lb 13 oz) Height: Wt Readings from Last 3 Encounters: 03/23/20 111.5 kg (245 lb 13 oz) 02/26/20 120.2 kg (265 lb) 11/15/19 123.4 kg (272 lb) Date 03/22/20 0700 - 03/23/20 0659 03/23/20 0700 - 03/24/20 0659 Shift 0168-5524 1485-2239 24 Hour Total 5254-7775 3999-9327 24 Hour Total INTAKE P.O. 720 720 [...] displayed. Recent Labs Component Name 03/22/20 0046 03/21/20 0213 03/20/20 0844 BUN 15 16 23 CREATININE [...] >60 Recent Labs Component Name 03/22/20 0046 03/21/20 0213 03/20/20 0844 MAGNESIUM 2.0 1.9 1.9 Recent Labs Component Name 03/22/20 0046 03/21/20 0213 03/20/20 0844 PHOS 3.9 3.9 3.7 Recent Labs Component Name 03/22/20 0046 03/21/20 0213 03/20/20 0844 CRP 3.0* 3.2* [...] that time -Covid from bronch 03/07 and POTTERY KILN BUILDER swab 03/07 both positive -received remdesivir 03/08 - 03/12 & convalescent plasma 03/10 -given overall stability will check labs every MWF at this point -CXr appears somewhat improved 03/20 vs 03/10 -following discussion with pulm pt will likely benefit from longer steroid taper than outlined in [facility]+ protocol -steroids switched to pred 03/18 [...] cell Caregiver: sister, girlfriend [facility] Intended lodging: home Referring provider: Cesar Tavares Disposition: Remain on 8S for O2 support, working on placement in LTAC given likely prolonged weaning of oxygen Asim Ramirez APRN, FLAVOR MAKER-C [facility] Blood Marrow and Transplant Pager: [phone] Associated attestation - Tony Dumont MD - 03/23/2020 8:34 PM CDT I discussed the case of Jalil Mansfield Luis with the BMT advanced practice provider. I reviewed my assessment with the advanced practice provider I reviewed the below note. Please see note for full detail.I agree with the findings and plan of care as documented by the advanced practice provider * Amy Anderson, PT - 03/22/2020 2:55 PM CDT [facility] Physical Medicine and Rehabilitation PhysicalTherapy Progress Note Patient: Jalil Luis Med Record Number: [id number] Date of : 1970 Age: [age] year [...] will perform home exercise program independently ?? Generator Mechanic Goal(s): Patient to be independent/baseline with functional [...] lowery. Amy Anderson, PT 03/22/2020 * Jocelin Griggs, JHON/DAE - 03/22/2020 12:43 PM CDT Nutrition Re-Assessment [...] noted. Skin/Wound: WDL Estimated Energy Needs: KCAL: 5868-7839 (30-35 kcal/kg IBW) Protein (g): 95-110 (1.4-1.6 [...] with current goal Jocelin Griggs MA, RD, LDN Pager: [phone] * Alecia Aldana RN - 03/22/2020 11:32 AM CDT [facility] informed CM they are not in network with patient's [facility] policy. They can do a single case agreement if patient doesn't prefer another LTAC that is in-network. CM sent to [facility] to review insurance and clinical information. Addendum- [facility] is in network with insurance. Discussed with patient about [facility]. Patient is adamant he won't go to [facility] due to losing a family member there in the past. He is agreeable to seeing if [facility] can do a single case agreement. [facility] with [facility] updated and will look into this. CM to follow Sissy Aldana RN, BSN Finance Attorney [phone] * Asim Ramirez APRN-ERIKA - 03/22/2020 9:01 AM CDT Autologous Hematopoietic [...] 119/72 139/89 Pulse: 84 83 104 Resp: 20 22 Temp: 97.6 ??F 98.5 ??F SpO2: 98% 94% 95% Weight: 115.7 kg (255 lb 1.2 oz) Height: Wt Readings from Last 3 Encounters: 03/22/20 115.7 kg (255 lb 1.2 oz) 02/26/20 120.2 kg (265 lb) 11/15/19 123.4 kg (272 lb) Date 03/21/20 07 - 03/22/20 0659 03/22/20 07 - 03/23/20 0659 Shift 6656-7700 0412-3289 24 Hour Total 9262-8281 2269-6185 24 Hour Total INTAKE P.O. 1120 1120 [...] displayed. Recent Labs Component Name 03/22/20 0046 03/21/20 0213 03/20/20 0844 BUN 15 16 23 CREATININE [...] >60 Recent Labs Component Name 03/22/20 0046 03/21/20 0213 03/20/20 0844 MAGNESIUM 2.0 1.9 1.9 Recent Labs Component Name 03/22/20 0046 03/21/20 0213 03/20/20 0844 PHOS 3.9 3.9 3.7 Recent Labs Component Name 03/22/20 0046 03/21/20 0213 03/20/20 0844 CRP 3.0* 3.2* [...] that time -Covid from bronch 03/07 and POTTERY KILN BUILDER swab 03/07 both positive -received remdesivir 03/08 - 03/12 & convalescent plasma 03/10 -given overall stability will check labs every MWF at this point -CXr appears somewhat improved 03/20 vs 03/10 -following discussion with pulm pt will likely benefit from longer steroid taper than outlined in [facility]+ protocol -steroids switched to pred 03/18 [...] cell Caregiver: sister, girlfriend Preferred D/C Pharmacy: [facility] Intended lodging: home Referring provider: Cesar Tavares Disposition: Remain on 8S for O2 support, working on placement in LTAC given likely prolonged weaning of oxygen Asim Ramirez APRN, FLAVOR MAKER-C [facility] Blood Marrow and Transplant Pager: [phone] Associated attestation - Tony Dumont MD - 03/22/2020 12:12 PM CDT I [...] Cortez OT - 03/22/2020 8:13 AM CDT [facility] Physical Medicine and Rehabilitation Occupational Therapy Progress Note Patient: Jalil Luis [facility] Record Number: [id number] Date of : 1970 Age: [age] year [...] independence Patient will perform toileting?With modified independence Generator Mechanic Goal:Patient to discharge to appropriate next level of inpatient care If patient is discharged from the facility, this note serves as a discharge note if further occupational therapy visits did not occur. Following therapy session, patient left in bed, with call light within reach, with RNKeena and with RN/CP rehab cues written on white board (chair is set up so patient can get to it later today after he has recovered). Inga Cortez OT * Inga Cortez OT - 03/21/2020 2:46 PM CDT [facility] Physical Medicine and Rehabilitation Occupational Therapy Progress Note Patient: Jalil Luis Med Record Number: [id number] Date of : 1970 Age: [age] year [...] to 10 mins. When pt goes to [facility], he drops to 87%, then quickly rises [...] Patient will perform toileting?With modified independence ?? Generator Mechanic Goal:Patient to discharge to appropriate next level [...] Anderson, PT - 03/21/2020 2:46 PM CDT [facility] Physical Medicine and Rehabilitation PhysicalTherapy Progress Note Patient: Jalil Luis Med Record Number: [id number] Date of : 1970 Age: [age] year [...] will perform home exercise program independently ?? Shelter Goal(s): Patient to be independent/baseline with functional [...] BP: 156/90 145/92 Pulse: 99 100 Resp: Temp: 98 ??F (36.7 ??C) 98 ??F [...] 0.8 0.8 0.8 Recent Labs Component Name 03/21/2021203/20/20 0844 03/18/20 2357 CALCIUM 8.6 8.7 8.3* PHOS 3.9 3.7 3.4 Lab results smartLinks are not currently available Recent Labs Component Name 03/21/2021203/20/20 0844 03/18/20 2357 PROT 5.4* 5.6* 5.4* ALB 2.4* 2.5* 2.4* ALKPHOS 91 94 99 AST 15 17 15 ALT 36 37 43 TBILI 0.2 0.3 0.2 No results for input(s): HENRIETTA, LIPASE in the last 94044 hours.Lab results smartLinks are not currently available Recent Labs Component Name 03/06/20 1816 02/27/20 2349 02/27/20 0411 PT 14.7 14.2 16.2* INR 1.2 1.1 1.3 Recent Labs Component Name 03/03/20 1247 TROPONINI <0.010 Recent Labs Component Name 03/03/20 1247 TROPONINI <0.010 No results for input(s): PHART, IGH2GMX, PO2ART, UGX4DBW, BASEEXCESS in the last 96747 hours. Invalid input(s): SO2ABG, FOHBABG CT chest [...] of Pulmonary, Critical Care and Sleep Medicine [facility] Pager: [phone] Associated attestation - Andrew Francis MD - 03/21/2020 2:45 PM CDT I have seen, examined and discussed the patient with the fellow and I agree with the the findings and plan of care/recommendations as documented by the fellow. Date of service: 03/21/2020 Andrew Francis M.D. Senior Process Engineer of Internal Medicine Division of Pulmonary, Critical Care and Sleep Medicine [facility] * Keena Hernandez RN - 03/21/2020 11:24 AM CDT Problem: Fall Risk Goal: Fall risk and fall related injury risk are minimized 03/21/2020 1123 by Keena Hernandez RN Outcome: Ongoing 03/21/20201122 by Keena Hernandez RN Outcome: Ongoing Problem: Isolation Goal: Prevent Transmission of Infection 03/21/2020 1123 by Keena Hernandez RN Outcome: Ongoing 03/21/2020 [...] agreeable to transfer to LTAC and prefers [facility]. Referral sent to Jessica with [facility] for [facility] location. CM to follow Sissy Aldana RN, BSN Finance Attorney [phone] * Asim Ramirez APRN-QUALITY PROCESS ENGINEER - 03/21/2020 7:47 AM CDT Autologous Hematopoietic [...] 123/88 121/79 Pulse: 90 80 83 Resp: Temp: 97.6 ??F 97.7 ??F SpO2: 97% 98% 99% Weight: 117.5 kg (259 lb 0.7 oz) Height: Wt Readings from Last 3 Encounters: 03/21/20 117.5 kg (259 lb 0.7 oz) 02/26/20 120.2 kg (265 lb) 11/15/19 123.4 kg (272 lb) Date 03/20/20 07 - 03/21/20 0659 03/21/20699 - 03/22/20 0659 Shift 6715-1793 9414-5919 24 Hour Total 4468-6950 7756-4570 24 Hour Total INTAKE P.O. 120 120 [...] interval not displayed. Recent Labs Component Name 03/21/2021203/20/20 0844 03/18/20 2357 BUN 16 23 19 [...] >60 >60 >60 Recent Labs Component Name 03/21/2021203/20/20 0844 03/18/20 2357 MAGNESIUM 1.9 1.9 2.0 Recent Labs Component Name 03/21/2021203/20/20 0844 03/18/20 2357 PHOS 3.9 3.7 3.4 Recent Labs Component Name 03/21/2021203/20/20 0844 03/18/20 2357 CRP 3.2* 1.9* 1.2* [...] that time -Covid from bronch 03/07 and POTTERY [employer]ILN BU[employer]DER swab 03/07 both positive -received remdesivir 03/08 [...] 10mg every 4 days -continue ATC Hypoxia -09/05 COVID, see above -intubated 03/06/20 -03/08/20>>now [...] 8S for O2 support Asim Ramirez APRN, FLAVOR MAKER-C [facility] Blood Marrow and Transplant Pager: [phone] Associated attestation - Tony Dumont MD - [...] lesions present. LABS: Recent Labs Component Name 03/20/2044 03/18/20235603/18/20 0014 WBC 16.3* 16.8* 20.4* HGB 10.8* 10.0* 9.9* HCT 33.0* 30.1* 29.4* MCV 89.2 88.0 86.2 Recent Labs Component Name 03/20/2044 03/18/20235603/18/20 0014 NA 141 144 140 CL 100 100 100 CO2 31* 28 28 BUN 23 19 21 CREATININE 0.8 0.8 0.8 Recent Labs Component Name 03/20/2044 03/18/20235603/18/20 0014 CALCIUM 8.7 8.3* 8.1* PHOS 3.7 3.4 3.3 Lab results smartLinks are not currently available Recent Labs Component Name 03/20/2044 03/18/20235603/18/20 0014 PROT 5.6* 5.4* 5.4* ALB 2.5* 2.4* 2.2* ALKPHOS 94 99 105 AST 17 15 19 ALT 37 43 44 TBILI 0.3 0.2 0.2 No results for input(s): HENRIETTA, LIPASE in the last 13795 hours.Lab results smartLinks are not currently available Recent Labs Component Name 03/06/20 1816 02/27/20 2349 02/27/20 0411 PT 14.7 14.2 16.2* INR 1.2 1.1 1.3 Recent Labs Component Name 03/03/20 1247 TROPONINI <0.010 Recent Labs Component Name 03/03/20 1247 TROPONINI <0.010 No results for input(s): PHART, HLH3QYV, PO2ART, BMU9PPD, BASEEXCESS in the last 44209 hours. Invalid input(s): SO2ABG, FOHBABG CT chest [...] of Pulmonary, Critical Care and Sleep Medicine [facility] Pager: [phone] Associated attestation - Andrew Francis MD - 03/20/2020 7:59 PM CDT I have seen, examined and discussed the patient with the fellow and I agree with the the findings and plan of care/recommendations as documented by the fellow. Date of service: 03/20/2020 Andrew Francis M.D. Senior Process Engineer of Internal Medicine Division of Pulmonary, Critical Care and Sleep Medicine [facility] * Inga Cortez, OT - 03/20/2020 2:54 PM CDT [facility] Physical Medicine and Rehabilitation Occupational Therapy Progress Note Patient: Jalil Luis Med Record Number: [id number] Date of : 1970 Age: [age] year [...] Patient will perform toileting?With modified independence ?? Shelter Goal:Patient to discharge to appropriate next level [...] chair position) Inga Cortez OT * Amy Anderson PT - 03/20/2020 2:48 PM CDT [facility] Physical Medicine and Rehabilitation PhysicalTherapy Progress Note ? Patient: Jalil Luis [facility] Record Number: [id number] Date of : 1970 Age: [age] year [...] will perform home exercise program independently ?? Shelter Goal(s): Patient to be independent/baseline with functional [...] ?? Amy Anderson, PT 03/20/2020 * Keli Case APRN-QUALITY PROCESS ENGINEER - 03/20/2020 7:35 AM CDT Autologous Hematopoietic [...] 0659 03/20/20 07 - 03/21/20 0659 Shift 9166-7807 4990-0351 24 Hour Total 2914-0260 9291-6173 24 Hour Total INTAKE P.O. 360 360 [...] displayed. Recent Labs Component Name 03/20/20 0844 03/18/207 03/18/20 0014 BUN 23 19 21 CREATININE [...] >60 >60 >60 Recent Labs Component Name 03/18/207 03/18/20 0014 03/16/20 2359 MAGNESIUM 2.0 2.0 [...] trending down -Covid from bronch 03/07 and POT[employer] swab 03/07/ came back positive -remdesivir 03/08 [...] cell Caregiver: sister, girlfriend Preferred D/C Pharmacy: [facility] Intended lodging: home Referring provider: Cesar Tavares Disposition: Remain on 8S for O2 support LUIZ Brink-BC Blood and Marrow Transplant [facility] Associated attestation - Tony Dumont MD - [...] lb) 11/15/19 123.4 kg (272 lb) Date 03/18/20 07 - 03/19/20 0659 03/19/20 07 - 03/20/20 0659 Shift 9480-1542 3295-6414 24 Hour Total 3034-4205 2817-4679 24 Hour Total INTAKE P.O. 1440 1440 [...] C/D/I LABS: Recent Labs Component Name 03/18/20 2357 03/18/20 0014 03/16/20 2359 03/16/20 0045 03/15/20 [...] - 100 - Recent Labs Component Name 03/18/20235603/18/201303/16/202358 BUN 19 21 19 CREATININE 0.8 0.8 [...] >60 >60 >60 Recent Labs Component Name 03/18/20235603/18/201303/16/202358 MAGNESIUM 2.0 2.0 2.0 Recent Labs Component Name 03/18/20235603/18/201303/16/202358 PHOS 3.4 3.3 3.9 Recent Labs Component Name 03/18/20 2357 03/18/20 0014 03/16/202358 CRP 1.2* 0.7* 1.1* LDH Total Date [...] trending down -Covid from bronch 03/07 and POT[employer] swab 03/07/ came back positive -remdesivir 03/08 [...] cell Caregiver: sister, girlfriend Preferred D/C Pharmacy: [facility] Intended lodging: home Referring provider: Cesar Tavares Disposition: Remain on 8S for O2 support MSISY Ball- Blood and Marrow Transplant Clinic [facility] No bmt or heme/onc mgmt MATH protocol I saw Jalil Luis with Tiffanie Nguyen [employer], examined the patient, reviewed the note, and participatedin all of the medical decisions. Bill Ferrera M.D. Director, Blood and Marrow Transplantation Senior Process Engineer, Department of Internal Medicine [facility] * Radha Saeed RN - 03/19/2020 6:32 [...] 11/15/19 123.4 kg (272 lb) Date 03/17/20 07 - 03/18/20 0659 03/18/20 07 - 03/19/20 0659 Shift 6245-1178 1962-1384 24 Hour Total 6295-8481 9349-6658 24 Hour Total INTAKE P.O. 1320 1320 [...] - 100 - Recent Labs Component Name 03/18/201303/16/20235803/16/20 004 BUN 21 19 18 CREATININE 0.8 0.8 [...] >60 >60 >60 Recent Labs Component Name 03/18/201303/16/20235803/16/20 0045 MAGNESIUM 2.0 2.0 2.3 Recent Labs Component Name 03/18/201303/16/20235803/16/20 0045 PHOS 3.3 3.9 3.8 Recent Labs Component Name 03/18/201303/16/20235803/16/20 0045 CRP 0.7* 1.1* 1.6* LDH Total [...] trending down -Covid from bronch 03/07 and POTTERY KILN BUILDER swab 03/07/ came back positive -remdesivir started [...] cell Caregiver: sister, girlfriend Preferred D/C Pharmacy: [facility] Intended lodging: home Referring provider: Cesar Tavares Disposition: Remain on 8S for O2 support JIE BallP- Blood and Marrow Transplant Clinic [facility] Day +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 Bill Ferrera M.D. Director, Blood and Marrow Transplantation Senior Process Engineer, Department of Internal Medicine [facility] * Katty Zuniga RN - 03/18/2020 4:41 [...] Transmission of Infection Outcome: Ongoing * Keli Case APRN-QUALITY PROCESS ENGINEER - 03/17/2020 3:11 PM CDT Autologous Hematopoietic [...] 0659 03/17/20 07 - 03/18/20 0659 Shift 2515-5090 5635-5632 24 Hour Total 8963-4913 3955-3185 24 Hour Total INTAKE P.O. 840 840 [...] - 100 - Recent Labs Component Name 03/16/20 2359 03/16/20 0045 03/15/20 0027 BUN 19 18 13 CREATININE [...] >60 >60 >60 Recent Labs Component Name 03/16/20 2359 03/16/20 0045 03/15/20 0027 MAGNESIUM 2.0 2.3 1.9 Recent Labs Component Name 03/16/20 2359 03/16/20 0045 03/15/20 0027 PHOS 3.9 3.8 2.6 [...] trending down -Covid from bronch 03/07 and POT[employer]Y [employer]DER swab 03/07/ came back positive -remdesivir started [...] Cesar Tavares Disposition: Remain on 8S Keli Evie, AGNP-BC Blood and Marrow Transplant [facility] Associated attestation - Tony Dumont MD - 03/18/2020 12:42 PM CDT I independently interviewed and examined Jalil Luis with the [facility] advanced practice provider. I reviewed my findings and assessment with the advanced practice provider and the patient. I reviewed the below note. Please see note for full detail.I agree with the findings and plan of care as documented by the advanced practice provider * Inga Cortez, DANIEL - 03/17/2020 2:10 PM CDT [facility] Physical Medicine and Rehabilitation Occupational Therapy Progress Note Patient: Jalil Luis Med Record Number: [id number] Date of : 1970 Age: [age] year [...] Patient will perform toileting?With modified independence ?? Shelter Goal:Patient to discharge to appropriate next level [...] Anderson, PT - 03/17/2020 2:00 PM CDT [facility] Physical Medicine and Rehabilitation PhysicalTherapy Progress Note Patient: Jalil Luis [facility] Record Number: [id number] Date of : 1970 Age: [age] year [...] 93%--Fi02 increased to ?? 90% ?? 87%--during esvin care (wiping) 90%--2 mins after [...] will perform home exercise program independently ?? Generator Mechanic Goal(s): Patient to be independent/baseline with functional [...] with call light within reach and with Annika RILEY. Amy Anderson, PT 03/17/2020 * Alecia Aldana [...] Assessment (BNA) Score: 9 Complex Needs Assessment (THUMB SEWER) Score: N/A Social Support Domain Score: Medical [...] Cortez OT - 03/16/2020 2:15 PM CDT [facility] Department of Physical Medicine & Rehabilitation Progress Note Patient: Jalil Luis [facility] Record Number: [id number] Date of : 1970 Age: [age] year old 03/16/20 1030 Missed Visit Missed Visit Refused Patient refused therapy intervention due to Fatigue Pt had a rough morning with learning some difficult and frustrating news. Was very polite and kindly asked to have today to rest and will gladly try again tomorrow. * Amy Anderson PT - 03/16/2020 11:00 AM CDT [facility] Department of Physical Medicine & Rehabilitation Progress Note Patient: Jalil Luis Med Record Number: [id number] Date of : 1970 Age: [age] year [...] cessation counseling participation Outcome: Ongoing * Rafaela Sood, JOSE DAVID-ERIKA - 03/16/2020 7:07 AM CDT Autologous Hematopoietic [...] lb) 11/15/19 123.4 kg (272 lb) Date 03/15/20699 - 03/16/20 0659 03/16/20 07 - 03/17/20 0659 Shift 6776-8713 1704-0532 24 Hour Total 9243-5414 2844-9861 24 Hour Total INTAKE P.O. 720 720 I.V.(mL/kg/hr) 113.1(0.1) 100(0.1) 213.1(0.1) Shift Total(mL/kg) 833.1(7.1) 100(0.9) 933.1(8) OUTPUT Urine(mL/kg/hr) 1900(1.4) 1800(1.3) 3700(1.3) Shift Total(mL/kg) 1900(16.2) 1800(15.4) 3700(31.6) [facility] -1066.9 -1700 -7926.9 Weight (kg) 117 117 117 117 117 [...] - 100 - Recent Labs Component Name 03/16/20 0045 03/15/20 0027 03/14/20 0023 BUN 18 13 21 CREATININE [...] >60 >60 >60 Recent Labs Component Name 03/16/20 0045 03/15/20 0027 03/14/20 0023 MAGNESIUM 2.3 1.9 2.4 Recent [...] trending down -Covid from bronch 03/07 and POT[employer] BU[employer]DER swab 03/07/ came back positive -remdesivir started [...] Disposition: Remain on 8S Eli Sood APRN, FLAVOR MAKER-C Bone Marrow Transplant [facility] Associated attestation - Tony Dumont MD - [...] weight: Weight: 265 lb (120.2 kg) (02/25/20 4556) Filed Wts: 03/02/20 0916 03/09/20 0400 03/10/20 0350 03/11/20 0400 Weight: 267 lb 3.2 oz (121.2 kg) 264 lb 12.4 oz (120.1 kg) 259 lb 14.8 oz (117.9 kg) 257 lb 15 oz (117 kg) Wt Comments: wt stable Height: 5' 7.01 (170.2 cm) IBW/lb (Calculated) Male: 148.048 , Laboratory values reviewed. Medications noted. Skin/Wound: WDL Estimated Energy Needs: KCAL: 2238-3734 (30-35 kcal/kg IBW) Protein (g): 95-110 (1.4-1.6 [...] with current goal Ana Laura [address] RD/DAE [id number] * Cassie Wilson RN - 03/15/2020 9:54 [...] Cortez OT - 03/15/2020 8:50 AM CDT [facility] Physical Medicine and Rehabilitation Occupational Therapy Progress Note Patient: Jalil Luis Med Record Number: [id number] Date of : 1970 Age: [age] year [...] 90% Fi02 L 02 SAME EXCEPT Fi02 OQQKHHI96-00% Post Activity BP: 148/93 HR: 110-120 SpO2 [...] Patient will perform toileting?With modified independence ?? Shelter Goal:Patient to discharge to appropriate next level of inpatient care If patient is discharged from the facility, this note serves as a discharge note if further occupational therapy visits did not occur. Following therapy session, patient left in bed, with call light within reach, with RNCassie aware and with RN/CP rehab cues written on white board. Inga Cortez OT * Amy Andreson PT - 03/15/2020 8:50 AM CDT [facility] Physical Medicine and Rehabilitation PhysicalTherapy Progress Note ? Patient: Jalil Luis Med Record Number: [id number] Date of : 1970 Age: [age] year [...] 90% Fi02 L 02 SAME EXCEPT Fi02 [id number]% Post Activity BP: 148/93 HR: 110-120 SpO2 [...] will perform home exercise program independently ?? Generator Mechanic Goal(s): Patient to be independent/baseline with functional [...] in bed with call light within reach, RN Cassie lowery. ?? Amy Anderson, PT 03/15/2020 * Rafaela Sood, BURN TABLE OPERATOR-QUALITY PROCESS ENGINEER - 03/15/2020 7:49 AM CDT Autologous Hematopoietic [...] Date 03/14/20 07 - 03/15/20 0659 03/15/20 0700 - 03/16/20 0659 Shift 8513-9201 0682-4609 24 Hour Total 7691-5316-7709 8465-0659 24 Hour Total INTAKE P.O. 1250 1250 [...] no rashes, no suspicious skin lesions noted [id number], no erythema, no drainage LABS: Recent Labs [...] interval not displayed. Recent Labs Component Name 03/15/202603/14/202203/13/2012 BUN 13 21 25 CREATININE 0.8 0.6 [...] >60 >60 >60 Recent Labs Component Name 03/15/202603/14/202203/13/2012 MAGNESIUM 1.9 2.4 2.0 Recent Labs Component Name 03/15/202603/14/202203/13/2012 PHOS 2.6 3.4 3.3 Pathology: CD4: see epic 7/26 BMBX (03/03/20): [...] trending down -Covid from bronch 03/07 and POTTER[employer] KIL[employer] BUILDER swab 03/07/ came back positive -remdesivir started [...] cell Caregiver: sister, girlfriend Preferred D/C Pharmacy: [facility] Intended lodging: home Referring provider: Cesar Tavares Disposition: Remain on 8S Eli Sood APRN, FLAVOR MAKER-C Bone Marrow Transplant [facility] Associated attestation - Tony Dumont MD - [...] Transport Assisted by 1RRT 2RN Transport From: 6ICU Transport To: 816 Total Transport Time: 10min [...] around mask/prongs Intact Preventative Measures Saline Gel (/19) Safety & Alarms Transport? Yes;Unit to Unit [...] I was indeed agreeable. John Garcia MD Safety Patrol Officer of Internal Medicine Division Pulmonary/Critical Care/Sleep Medicine Pager: [phone] * Inga Cortez, OT - 03/14/2020 4:00 PM CDT [facility] Physical Medicine and Rehabilitation Occupational Therapy Progress Note Patient: Jalil Luis Med Record Number: [id number] Date of : 1970 Age: [age] year [...] independence Patient will perform toileting?With modified independence Shelter Goal:Patient to discharge to appropriate next level of inpatient care If patient is discharged from the facility, this note serves as a discharge note if further occupational therapy visits did not occur. Following therapy session, patient left in patient bedside chair, with call light within reach, with Amy RILEY aware and with RN/CP rehab cues written on white board. Inga Cortez OT * Keli Case BURN TABLE OPERATOR-QUALITY PROCESS ENGINEER - 03/14/2020 1:04 PM CDT Autologous Hematopoietic [...] Pulse: 90 (!) 111 (!) 116 Resp: 25 26 26 Temp: 98 ??F 98.8 ??F SpO2: 98% 93% 97% 95% Weight: Height: Wt Readings from Last 3 Encounters: 03/11/20 117 kg (257 lb 15 oz) 02/26/20 120.2 kg (265 lb) 11/15/19 123.4 kg (272 lb) Date 03/13/20699 - 03/14/20 0659 03/14/20699 - 03/15/20 0659 Shift 3181-1638 8277-9020 24 Hour Total 9634-7827 9404-7172 24 Hour Total INTAKE P.O. 1750 1300 [...] interval not displayed. Recent Labs Component Name 03/14/202203/13/203 03/12/20 0036 BUN 21 25 25 CREATININE [...] >60 >60 >60 Recent Labs Component Name 03/14/203 03/13/203 03/12/20 0036 MAGNESIUM 2.4 2.0 2.3 Recent Labs Component Name 03/14/203 03/13/20 0013 03/12/20 0036 PHOS 3.4 3.3 [...] trending down -Covid from bronch 03/07 and POT[employer]DER swab 03/07/ came back positive -remdesivir started [...] Keli Evie, AGNP-BC Blood and Marrow Transplant [facility] Associated attestation - Tony Dumont MD - [...] 02/25/2020 9:41 PM LOS: LOS: 18 days /Bed: [facility]- Hospital Day: 18 BRIEF HOSPITAL COURSE: per Joe Denniosn MD 49 year oldmale [facility] 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 1750 1300 3050 750 750 I.V.(mL/kg/hr) 195.1(0.1) 199.1(0.1) 394.3(0.1) Shift Total(mL/kg) 1945.1(16.6) 1499.1(12.8) 3444.3(29.4) 750(6.4) 750(6.4) OUTPUT Urine(mL/kg/hr) 900(0.6) 1000(0.7) 1900(0.7) Shift Total(mL/kg) 900(7.7) 1000(8.5) 1900(16.2) NET 1045.1 499.1 1544.3 750 750 Weight (kg) 117 117 117 117 117 117 Physical Exam: Dr. 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 John Garcia MD Safety Patrol Officer of Internal Medicine Division Pulmonary/Critical Care/Sleep Medicine Pager: [phone] * Amy Anderson, PT - 03/14/2020 10:15 AM CDT [facility] Physical Medicine and Rehabilitation PhysicalTherapy Progress Note Patient: Jalil Luis Med Record Number: [id number] Date of : 1970 Age: [age] year [...] Pt takes seated rest break in chair, [id number] to drop less as compared to when [...] will perform home exercise program independently ?? Shelter Goal(s): Patient to be independent/baseline with functional [...] with call light within reach and with RNAmy aware. Amy Anderson, PT 03/14/2020 * Amy Baron RN - 03/14/2020 9:51 AM CDT Will assess pain Q2H and within 1 hour of intervention. * Sharon Bragg - 03/13/2020 2:06 PM CDT Business Education Teacher followed up on this patient visited on previous admission for stem cell transplant. Nurse indicated patient is now off the breathing tube. Per nurse, patient has his cell phone at bedside. Business Education Teacher called patient on his cell phone and visited briefly. Patient indicated he believes he is getting better. Per patient, he is still in contact with his shinto and feels very supported by them and his wendy as well as support he is receiving from his fiance'. Business Education Teacher assured patient of ongoing prayer support and availability as needed. Plan: Continue to provide pastoral care and support, visiting weekly or as requested. Page ChaplainCarol #[phone] or yardage control operator communications editor #[phone] as needed. [phone] * Joce Damian DO [...] 2 puff 2 puff Inhalation q4h Evie, JUAN MIGUEL DickeyN-QUALITY PROCESS ENGINEER 2 puff at 03/13/20 1130 ??? artificial [...] mL bolus 2 g Intravenous PRN Rafaela Sood BURN TABLE OPERATOR-QUALITY PROCESS ENGINEER ??? methylPREDNISolone sod succ (SOLU-Medrol) injection 20 mg 20 mg Intravenous q6h Joe Dennison MD 20 mg at 03/13/20 1130 ??? ondansetron (disintegrating) (ZOFRAN ODT) tablet 4 mg 4 mg Oral q8h PRN Alida Marshall BURN TABLE OPERATOR-QUALITY PROCESS ENGINEER ??? ondansetron (ZOFRAN) injection 4 mg 4 mg Intravenous q8h PRN Alida Marshall, BURN TABLE OPERATOR-QUALITY PROCESS ENGINEER ??? pantoprazole EC (PROTONIX) tablet 40 mg 40 mg Oral QDAY Joe Dennison MD 40 mg at 03/13/20 0810 ??? penicillin V potassium (VEETIDS) solution 250 mg 250 mg Oral q12h Kenneth Martins MD 250 mg at 03/13/20 0809 ??? prochlorperazine (COMPAZINE) injection 10 mg 10 mg Intravenous q6h PRN Alida Marshall, BURN TABLE OPERATOR-QUALITY PROCESS ENGINEER ??? prochlorperazine (COMPAZINE) tablet 5 mg 5 mg Oral q8h PRN Alida Marshall APRN-QUALITY PROCESS ENGINEER ??? rOPINIRole (REQUIP) tablet 0.25 mg 0.25 mg Oral AT BEDTIME Joe Dennison MD 0.25 mg at 03/12/20 2217 ??? sulfamethoxazole-trimethoprim (BACTRIM DS; SEPTRA DS) 800-160 MG tablet 1 tablet 1 tablet Oral FRI, FRI AND FRI Joe Dennison MD ??? thiamine [...] (1000 UNITS) tablet 2,000 Units 2,000 UnitsOral QDJoe Ortiz MD 2,000 Units at 03/13/20 0810 ??? zinc gluconate tablet 50 mg 50 mg Oral QDJoe Ortiz MD 50 mg at 03/13/20 0810 I have updated and confirmed the past medical, surgical, family and social history. Objective: Vitals: 03/13/20 0800 03/13/20 0900 03/13/20 1000 03/13/20 1100 BP: 144/91 164/80 128/69 110/67 Pulse: 74 97 78 104 Resp: 24 20 28 Temp: 98.3 ??F (36.8 ??C) [...] given initial infection reportedly on 01/07/20. COVID POT[employer] KILN BUILDER swab negative x 3, 4th positive; initially [...] Cortez, OT - 03/13/2020 10:05 AM CDT [facility] Physical Medicine and Rehabilitation Occupational Therapy Progress Note Patient: Jalil Luis Med Record Number: [id number] Date of : 1970 Age: [age] year [...] independence Patient will perform toileting?With modified independence Generator Mechanic Goal:Patient to be independent/baseline with functional mobility and self care and be able to safely discharge to prior level of care If patient is discharged from the facility, this note serves as a discharge note if further occupational therapy visits did not occur. Following therapy session, patient left in patient bedside chair, with call light within reach, with Amy RILEY aware and with RN/CP rehab cues written on white board. Inga Cortez OT * Amy Anderson PT - 03/13/2020 9:55 AM CDT [facility] Physical Medicine and Rehabilitation PhysicalTherapy Progress Note Patient: Jalil Luis Med Record Number: [id number] Date of : 1970 Age: [age] year [...] SAME BIPAP MODE [facility]ations[facility] of session. Switched [...] will perform home exercise program independently ?? Shelter Goal(s): Patient to be independent/baseline with functional [...] with Amy RILEY aware. Amy Anderson, RENUKA 03/13/2020 * Amy Baron RN - 03/13/2020 9:09 AM CDT Will assess pain Q2H and within 1 hour of intervention. 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 1468 623 6791 I.V.(mL/kg/hr) 338.4(0.2) 197.5(0.1) 536(0.2) 96.2 96.2 Shift Total(mL/kg) 1338.4(11.4) 677.5(5.8) 2016(17.2) 96.2(0.8) 96.2(0.8) OUTPUT Urine(mL/kg/hr) 700(0.5) 1125(0.8) 1825(0.6) Shift Total(mL/kg) 700(6) 1125(9.6) 1825(15.6) NET 638.4 -447.5 191 96.2 96.2 Weight (kg) 117 117 117 117 117 117 Physical Exam: Dr. 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 John Garcia MD Safety Patrol Officer of Internal Medicine Division Pulmonary/Critical Care/Sleep Medicine Pager: [phone] * Keli Case, JOSE DAVID-QUALITY PROCESS ENGINEER - 03/13/2020 7:15 AM CDT Autologous Hematopoietic [...] lb) 11/15/19 123.4 kg (272 lb) Date 03/12/20699 - 03/13/20 0659 03/13/20699 - 03/14/20 0659 Shift 3029-2035 0901-3365 24 Hour Total 5477-1582 3670-0327 24 Hour Total INTAKE P.O. 7831 071 3250 750 750 I.V.(mL/kg/hr) 338.4(0.2) 197.5(0.1) 536(0.2) 96.2 [...] mostly elevated -Covid from bronch 03/07 and POTTERY KILN BUILDER swab 03/07/ came back positive -remdesivir started 03/08 - convalescent plasma, patient refused initially and is now agreeable to gettting it today (03/10/20). - Starting [facility] + protocol today- Solumedrol 80 mg once [...] d/c 03/12 and started Solumedrol with the 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 John Garcia MD Safety Patrol Officer of Internal Medicine Division Pulmonary/Critical Care/Sleep Medicine Pager: [phone] * Sarah Pepe, PT - 03/12/2020 10:03 AM CDT [facility] Department of Physical Medicine & Rehabilitation Progress Note Patient: Jalil Luis [facility] Record Number: [id number] Date of : 1970 Age: [age] year old 03/12/20 1000 Missed Visit Missed Visit Refused Patient refused therapy intervention due to Fatigue;RN Notified of Refusal * Vicki Alex OT - 03/12/2020 9:06 AM CDT [facility] Department of Physical Medicine & Rehabilitation Progress Note Patient: Jalil Luis [facility] Record Number: [id number] Date of : 1970 Age: [age] year [...] DS) 800-160 MG tablet 1 tablet, Oral, FRI, FRI AND FRI ?? CONTINUOUS MEDICATIONS: PRN MEDICATIONS: [...] 125/80 Pulse: 72 98 78 71 Resp: Temp: 98.7 ??F 97.8 ??F SpO2: 92% (!) 89% 90% 95% Weight: Height: Wt Readings from Last 3 Encounters: 03/11/20 117 kg (257 lb 15 oz) 02/26/20 120.2 kg (265 lb) 11/15/19 123.4 kg (272 lb) Date 03/11/20 07 - 03/12/20 0659 03/12/20 07 - 03/13/20 0659 Shift 7340-6209 0973-9349 24 Hour Total 5773-2128 2456-8416 24 Hour Total INTAKE P.O. 4539 479 0711 I.V.(mL/kg/hr) 348.6(0.2) 296.7 645.3 Shift Total(mL/kg) 1348.6(11.5) [...] - - - Recent Labs Component Name 03/12/203503/11/203 03/10/20 0059 BUN 25 20 17 CREATININE [...] >60 >60 >60 Recent Labs Component Name 03/12/203503/11/203 03/10/20 0059 MAGNESIUM 2.3 1.9 2.0 Recent Labs Component Name 03/12/20 0036 03/11/20 0033 03/10/20 0059 PHOS 3.6 3.6 2.9 Pathology: CD4: see epic 02/26 BMBX (03/03/20): Path- Normocellular marrow with maturing trilineage hematopoiesis. No morphologic evidence of residual/recurrent non-Hodgkin lymphoma. 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 Jalil Luis. I confirmed the alfonso elements of of history and physical examination. I also discussed the assessment and plan in detail with the team on rounds and with the patient. I made some modifications to the above note. I fully concur with the above assessment and plan. Ezio Segal MD Airplane Technician Department of Internal Medicine Division of Hematology [...] maintained or improved Outcome: Ongoing * Sarah Pepe PT - 03/11/2020 4:17 PM CDT [facility] Department of Physical Medicine & Rehabilitation Progress Note Patient: Jalil Luis Med Record Number: [id number] Date of : 1970 Age: [age] year old 03/11/20 1600 Missed Visit Missed Visit MD Cancel;RN Cancel * Vicki Alex OT - 03/11/2020 3:06 PM CDT [facility] Department of Physical Medicine & Rehabilitation Progress Note Patient: Jalil Luis Med Record Number: [id number] Date of : 1970 Age: [age] year old 03/11/20 1500 Missed Visit Missed Visit MD Cancel;RN Cancel Pt desat yesterday and MD request that patient not get up this date * Anali Avery MD - 03/11/2020 9:47 AM CDT CCU PROGRESS NOTE Name: Jalil Luis Admit Date and Time: 02/25/2020 9:41 PM LOS: LOS: 15 days Rm/Bed: 641/641-01 Hospital Day: 15 BRIEF HOSPITAL COURSE: per Joe Dennison MD 49 year oldmale [facility] 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 Continue support. John Garcia MD Safety Patrol Officer of Internal Medicine Division Pulmonary/Critical Care/Sleep Medicine Pager: [phone] * Shalini Segal MD - 03/11/2020 6:51 [...] kg (272 lb) Date 03/10/20699 - 03/11/20 0603/11/20699 - 03/12/20 0659 Shift 3012-6122 2271-5658 24 Hour Total 5998-3066 3603-8648 24 Hour Total INTAKE I.V.(mL/kg/hr) 1325.6(0.9) 302.2 [...] 3.6 2.9 2.4 Pathology: CD4: see epic 02/26 BMBX [...] mostly elevated -Covid from bronch 03/07 and P[employer] swab 03/07/ came back positive -remdesivir started [...] cell Caregiver: sister, girlfriend Preferred D/C Pharmacy: [facility] Intended lodging: home Referring provider: Cesar Tavares Disposition: Remain on 6ICU Christina Espinoza [employer]- Blood and Bone Marrow Transplant Program [facility] I personally evaluated and examined Mr. Jalil Luis. I confirmed the alfonso elements of of history and physical examination. I also discussed the assessment and plan in detail with the team on rounds and with the patient. I made some modifications to the above note. I fully concur with the above assessment and plan. Ezio Segal MD Airplane Technician Department of Internal Medicine Division of Hematology Oncology * Kristina Field, PT - 03/10/2020 4:20 PM CDT [facility] Physical Medicine and Rehabilitation PhysicalTherapy Progress Note Patient: Jalil Luis Med Record Number: [id number] Date of : 1970 Age: [age] year [...] will perform home exercise program independently ?? 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 440 300 740 I.V.(mL/kg/hr) 1860.7(1.3) 1422.9(1) 3283.6(1.2) 1077.8 1077.8 Shift Total(mL/kg) 2300.7(19.2) 1722.9(14.6) 4023.6(34.1) 1077.8(9.1) 1077.8(9.1) OUTPUT Urine(mL/kg/hr) 1000(0.7) 2275(1.6) 3275(1.2) 650 650 Shift Total(mL/kg) 1000(8.3) 2275(19.3) 3275(27.8) 650(5.5) 650(5.5) NET 1300.7 -552.1 748.6 427.8 427.8 Weight (kg) 120.1 117.9 117.9 117.9 117.9 117.9 Physical Exam: Dr. 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 Tiffanie Rebolledo RN 03/10/2020 11:53 AM [phone] * Jayson Friedman MD - 03/10/2020 11:48 AM CDT Images from the original note were not included. [facility] Infectious Diseases Progress Note Admitted on: 02/25/2020 9:41 PM Hospital stay: Day 14 Room: [address] [place] [address] Primary Team: Attending: Nilo Yun MD Reason [...] right IJ DVT 09/27/19, who presented to [facility] on 02/24/10 with c/o intermittent low [...] potassium 250 mg Oral q12h ??? remdesivir (GS-21882) infusion 100 mg Intravenous q24h ??? 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 Infectious Diseases fellow (Team 1) Pager [phone], cell phone [phone]. You can call or text me for [...] given initial infection reportedly on 01/07/20. COVID P[employer] BU[employer]DER swab negative x 3, 4th positive; initially [...] Cortez, OT - 03/10/2020 10:16 AM CDT [facility] Physical Medicine and Rehabilitation Occupational Therapy Progress Note Patient: Jalil Luis Med Record Number: [id number] Date of : 1970 Age: [age] year [...] Patient will perform toileting With modified independence Generator Mechanic Goal:Patient to be independent/baseline with functional mobility and self care and be able to safely discharge to prior level of care If patient is discharged from the facility, this note serves as a discharge note if further occupational therapy visits did not occur. Following therapy session, patient left in patient bedside chair, with call light within reach, with RNDian aware and with RN/CP rehab cues written [...] 140/74 Pulse: 89 91 92 Resp: 14 21 18 Temp: 99.4 ??F SpO2: 91% 92% 94% 94% Weight: Height: Wt Readings from Last 3 Encounters: 03/10/20 117.9 kg (259 lb 14.8 oz) 02/26/20 120.2 kg (265 lb) 11/15/19 123.4 kg (272 lb) Date 03/09/20699 - 03/10/20 0659 03/10/20699 - 03/11/20 0659 Shift 0300-0377 9520-7265 24 Hour Total 8344-8508 9825-3104 24 Hour Total INTAKE P.O. 440 300 [...] mostly elevated -Covid from bronch 03/07 and P[employer] swab 03/07/ came back positive -remdesivir started [...] cell Caregiver: sister, girlfriend Preferred D/C Pharmacy: [facility] Intended lodging: home Referring provider: Cesar Tavares Disposition: Remain on 6ICU Keli Evie, AGNP-BC Blood and Marrow Transplant [facility] I personally evaluated and examined Mr. Jalil Luis. I confirmed the alfonso elements of of history and physical examination. I also discussed the assessment and plan in detail with the team on rounds and with the patient. I made some modifications to the above note. I fully concur with the above assessment and plan. Ezio Segal MD Airplane Technician Department of Internal Medicine Division of Hematology Oncology * Yovana Lara, RD/LD - 03/10/2020 7:47 AM CDT Nutrition [...] Remdesivir Skin/Wound: WDL Estimated Energy Needs: KCAL: 3916-8499 (30-35 kcal/kg IBW) Protein (g): 95-110 (1.4-1.6 [...] current goal Yovana Lara RD/NIKO Pager #: [phone] * Rashida Kristina Nuñez Bharti, PT - 03/09/2020 4:27 PM CDT Problem: Balance Goal: LTG - Patient will maintain balance to allow for safe mobility Outcome: Ongoing * Anali Avery MD - 03/09/2020 12:19 PM CDT CCU PROGRESS NOTE Name: Jalil Luis Admit Date and Time: 02/25/2020 9:41 PM LOS: LOS: 13 days Rm/Bed: 641/641- Hospital Day: 13 BRIEF HOSPITAL COURSE: per Joe Dennison MD 49 year oldmale [facility] 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 Nilo Yun MD * Kristina Field Margaret Bharti, PT - 03/09/2020 10:35 AM CDT [facility] Physical Medicine and Rehabilitation Physical Therapy Initial Evaluation Note Patient: Jalil Luis [facility] Record Number: [id number] Date of : 1970 Age: [age] year [...] Patient will perform home exercise program independently Generator Mechanic Goal(s): Patient to be independent/baseline with functional [...] aware. 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 Pain: Patient c/o a killer headache and asked for pain meds. Therapist informed ROSEMARY Reyes who stated she would be in w/ [...] Patient will perform toileting With modified independence Generator Mechanic Goal: Patient to be independent/baseline with functional [...] written on white board. Inga Cortez OT 03/09/2020 * Jayson Friedman MD - 03/09/2020 10:25 AM CDT Images from the original note were not included. [facility] Infectious Diseases Progress Note Admitted on: 02/25/2020 9:41 PM Hospital stay: Day 13 Room: [facility] Primary Team: Attending: Nilo Yun MD Reason [...] right IJ DVT 09/27/19, who presented to [facility] on 02/24/10 with c/o intermittent low [...] potassium 250 mg Oral q12h ??? remdesivir ([id number]) infusion 100 mg Intravenous q24h ??? trimethoprim-sulfamethoxazole [...] Not detected ?? SARS-COV-2 (COVID-19) 02/25/20, 02/26. /: negative 03/06 positive 03/07 positive ?? 02/25/20, [...] M.D. Infectious Diseases fellow (Team 1) Pager [phone], cell phone [phone]. You can call or text me for [...] given initial infection reportedly on 01/07/20. COVID POT[employer] BUILDER swab negative x 3, 4th positive; initially [...] Field, PT - 03/09/2020 9:01 AM CDT [facility] Department of Physical Medicine & Rehabilitation Progress Note Patient: Jalil Luis Med Record Number: [id number] Date of : 1970 Age: [age] year [...] Date 03/08/20 07 - 03/09/20 0659 03/09/20 07 - 03/10/20 0659 Shift 0670-5031 4331-8876 24 Hour Total 8276-8595 8109-3258 24 Hour Total INTAKE I.V.(mL/kg/hr) 1555.5(1.1) 1555.5(0.5) [...] sent (03/03) -Covid from bronch 03/07 and POT[employer] K[employer] BUILDER swab 03/07/ came back positive -remdesivir started [...] Tavares Disposition: Remain on 8ICU [facility] 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 Jalil Mansfield Mindy. I confirmed the alfonso elements of of history and physical examination. I also discussed the assessment and plan in detail with the team on rounds and with the patient. I made some modifications to the above note. I fully concur with the above assessment and plan. Ezio Segal MD Airplane Technician Department of Internal Medicine Division of Hematology Oncology * Inga Cortez OT - 03/09/2020 8:09 AM CDT [facility] Department of Physical Medicine & Rehabilitation Progress Note Patient: Jalil Luis Med Record Number: [id number] Date of : 1970 Age: [age] year old 03/09/20 0800 Missed Visit Missed Visit Bedrest Patient is currently listed as STRICT BEDREST. Therapy cannot work w/ patient until activity ordershave been updated. Thank you, Inga Cortez OT 03/09/2020 8:10 AM * Lavinia Huang APRN-CNP - 03/08/2020 8:45 PM CDT 8N POTTER[employer] KILN BUILDER discussed via phone with [employer] ([employer]) that pt is asplenic and need pneumococcal ppx after being taken off Cem & Vanc earlier today. [employer]ait notified MICU [address] order for penicillin VK 250 mg solution Q12hrs, order placed by Kimberley Mendez. POTTERY KILN BUILDER will continue to monitor pt. Lavinia DUMONT FLAVOR MAKER- BMT pager [phone] [facility] BMT * Nilo Yun MD - 03/08/2020 2:11 PM CDT [facility] Attending Note I saw and evaluated the [...] Relevant Labs- CBC: Recent Labs Component Name 03/08/202203/07/20 0005 03/06/20 1816 WBC 10.8* 14.0* 15.3* HGB 10.1* 9.6* 8.8* HCT 30.6* 28.8* 25.4* BMP: Recent Labs Component Name 03/08/2022203/07/20 0005 03/06/20 1816 NA 144 144 141 [...] ABGs: No results for input(s): PHART, PO2ART, OPM0FDE, BEART in the last 28029 hours. Imaging Studies: I have personally reviewed [...] from the original note were not included. [facility] Infectious Diseases Progress Note Admitted on: 02/25/2020 9:41 PM Hospital stay: Day 12 Room: 641/641-01 Primary Team: Attending: Nilo Yun MD Reason [...] right IJ DVT 09/27/19, who presented to [facility] on 02/24/10 with c/o intermittent low [...] pantoprazole 40 mg Intravenous QDAY ??? remdesivir ([id number]) infusion 200 mg Intravenous Once Followed by ??? [START ON 03/09/2020] remdesivir ([id number]) infusion 100 mg Intravenous q24h ??? trimethoprim-sulfamethoxazole [...] 144 141 CL 108* 109* 108* CO2 24 BUN 14 12 12 CREATININE 0.9 [...] M.D. Infectious Diseases fellow (Team 1) Pager [phone], cell phone [phone]. You can call or text me for [...] given initial infection reportedly on 01/07/20. COVID POT[employer] K[employer]N BUILDER swab negative x 3, 4th pending, and [...] F/U on bronch studies and repeat COVID POT[employer] KILN BUILDER swab Consider D/C vanco and cem as [...] secured via baum at 24 cm at [facility]. Pt will be monitored for secretions and [...] 03/08/20 0659 03/08/20699 - 03/09/20 0659 Shift 0646-2347 9435-5569 24 Hour Total 1182-2859 2271-3714 24 Hour Total INTAKE I.V.(mL/kg/hr) 2148.9(1.5) 1679.3(1.2) [...] interval not displayed. Recent Labs Component Name 03/08/2022203/07/20403/06/20 1816 BUN 14 12 12 CREATININE 0.9 [...] >60 >60 >60 Recent Labs Component Name 03/08/2022203/07/20403/06/20 1816 MAGNESIUM 2.2 2.3 2.0 Recent Labs Component Name 03/08/2022203/07/2003/06/20 1816 PHOS 3.4 2.9 4.4 Pathology: CD4: [...] for meningitis > Dex 10mg Q6h, d/c 7/29 Right IJ venous clot 09/27/19 -on Lovenox 120 mg Q12H while inpt - previously on Eliquis 5 mg BID Pertinent Medical History: Anxiety/Depression- Lexapro 10 mg daily Restless Leg Syndrome - Requip 0.25 mg QHS Discharge Planning: Patients preferred contact information: cell Caregiver: sister, girlfriend Preferred D/C Pharmacy: [facility] Intended lodging: home Referring provider: Cesar Tavares Disposition: Remain on 8ICU Keli Evie, AGNP-BC Blood and Marrow Transplant [facility] I personally evaluated and examined Mr. Jalil Luis. I confirmed the alfonso elements of of history and physical examination. I also discussed the assessment and plan in detail with the team on rounds and with the patient. I made some modifications to the above note. I fully concur with the above assessment and plan. Ezio Segal MD Airplane Technician Department of Internal Medicine Division of Hematology Oncology * Joe Dennison MD - 03/08/2020 6:17 AM CDT [facility] Note Admit Date: 02/25/2020 Length of Stay 12 Day(s) Room 641 Jalil Luis 1970 641/641-01 CrCl: Estimated Creatinine Clearance: 123.7 mL/min (based on SCr of 0.9 mg/dL). 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) with treatment with [...] ABA Dennison MD 03/08/2020 6:17 AM * CourtNilo MD - 03/07/2020 4:02 PM CDT [facility] Critical Care Medicine (MICU) Attending Note [...] Relevant Labs- CBC: Recent Labs Component Name 03/07/20403/06/20181503/05/20 2353 WBC 14.0* 15.3* 16.7* HGB 9.6* 8.8* 9.8* HCT 28.8* 25.4* 28.4* BMP: Recent Labs Component Name 03/07/20 0005 03/06/20 18103/05/20 2353 NA 144 141 138 CL 109* 108* 104 CO2 26 24 22 BUN 12 12 15 CREATININE 0.9 0.9 0.9 CALCIUM 8.3* 8.3* 8.1* PHOS 2.9 4.4 2.0* Hepatic: Recent Labs Component Name 03/07/20 0005 03/06/20 1816 03/05/20 2353 ALT 69* 74* 93* AST 21 28 47* TBILI 0.2 0.2 0.3 PROT 5.1* 5.0* 5.2* ALB 1.9* 1.8* 1.9* ALKPHOS 75 73 81 Coagulation: Recent Labs Component Name 03/06/20 1816 02/27/20 2349 02/27/20 0411 PT 14.7 14.2 16.2* INR 1.2 1.1 1.3 Cardiac Markers: Recent Labs Component Name 03/03/20 1247 TROPONINI <0.010 ABGs: No results for input(s): PHART, PO2ART, QMM8MRK, BEART in the last 01092 hours. Imaging Studies: I have personally reviewed [...] from the original note were not included. [facility] Infectious Diseases Progress Note Admitted on: 02/25/2020 9:41 PM Hospital stay: Day 11 Room: [address] [place] [address] Primary Team: Attending: Nilo Yun MD Reason [...] right IJ DVT 09/27/19, who presented to [facility] on 02/24/10 with c/o intermittent low [...] tube LABS CBC: Recent Labs Component Name 03/07/20 0005 03/06/20181503/05/20 2353 WBC 14.0* 15.3* 16.7* RBC 3.36* 3.02* 3.39* HGB 9.6* 8.8* 9.8* HCT 28.8* 25.4* 28.4* MCV 85.7 84.1 83.8 BMP: Recent Labs Component Name 03/07/20 0005 03/06/20 18103/05/20 2353 NA 144 141 138 CL 109* 108* 104 CO2 26 24 22 BUN 12 12 15 CREATININE 0.9 0.9 0.9 ALB 1.9* 1.8* 1.9* PROT 5.1* 5.0* 5.2* estimated creatinine clearance is 123.7 mL/min (based on SCr of 0.9 mg/dL). LFTs: Recent Labs Component Name 03/07/20 0005 03/06/20 18103/05/20 2353 03/04/20 2327 03/03/20 2345 03/03/20 0014 [...] Not detected ?? SARS-COV-2 (COVID-19) 02/25/20, 02/26. 8/1: negative ?? 02/25/20, : COVID-19 Ab IgG: [...] M.D. Infectious Diseases fellow (Team 1) Pager [phone], cell phone [phone]. You can call or text me for communication. Associated attestation - Joce Damian, - 03/07/2020 7:40 PM CDT I applied [...] given initial infection reportedly on 01/07/20. COVID POTTERY KILN BUILDER swab negative x 3 and mildly elevated [...] on bronch studies Will repeat COVID swab, POTTERY KILN BUILDER, hopefully today to try and confirm if acutely acquired * Amy Baron RN - 03/07/2020 9:25 AM CDT Will assess pain Q2H and within 1 hour of intervention. * Krupa Raines MD - 03/07/2020 8:22 AM CDT COVID Test was added on to the Bronchoalveolar lavage fluid as a sent out lab to [facility]. Result expectedly will be available after 2-4 [...] 114/80 Pulse: 65 77 75 79 Resp: Temp: (!) 100.1 ??F SpO2: 96% 95% 94% Weight: Height: Wt Readings from Last 3 Encounters: 03/02/20 121.2 kg (267 lb 3.2 oz) 02/26/20 120.2 kg (265 lb) 11/15/19 123.4 kg (272 lb) Date 03/06/20699 - 03/07/20 0659 03/07/20699 - 03/08/20 0659 Shift 4789-1779 1446-7438 24 Hour Total 9906-0511 3141-1106 24 Hour Total INTAKE I.V.(mL/kg/hr) 2170(1.5) 2006.3(1.4) [...] displayed. 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 Jalil Luis. I confirmed the alfonso elements of of history and physical examination. I also discussed the assessment and plan in detail with the team on rounds and with the patient. I made some modifications to the above note. I fully concur with the above assessment and plan. Ezio Segal MD Airplane Technician Department of Internal Medicine Division of Hematology [...] of Pulmonary, Critical Care, & Sleep Medicine [facility] * Alecia Low RCP - 03/06/2020 5:57 [...] BEDTIME ??? sulfamethoxazole-trimethoprim 1 tablet Oral MON, FRI AND FRI ??? valACYclovir 500 mg Oral BID ??? vancomycin 1,750 mg Intravenous q12h INFUSIONS: 0.9% NaCl, , Last Rate: 100 mL/hr at 03/06/20 0335 PRN MEDS: acetaminophen ??? LORazepam ??? magnesium sulfate ??? ondansetron (disintegrating) ??? ondansetron ??? oxyCODONE (immediate release) ??? prochlorperazine ??? prochlorperazine LABs: CBC: Recent Labs Component Name 03/05/20 23503/04/20232603/03/20 2345 03/01/20 1039 WBC 16.7* 13.3* 16.4* - - RBC 3.39* 3.70* 3.83* - - HGB 9.8* 10.8* 11.2* - - HCT 28.4* 30.7* 32.1* - - DIFF - - - - Manual Differential to follow. - = values in this interval not displayed. BMP: Recent Labs Component Name 03/05/20 23503/04/20232603/03/20 2345 NA 138 139 136 CL 104 [...] Value - Date/Time SARS-COV-2 (COVID-19) IN HOUSE [[id number]] (Normal) Collected: 03/04/20 1045 Lab Status: Final result Specimen: Microbiology from Nasopharyngeal Updated: 03/05/20 0623 COVID-19 Not detected Narrative: This Real Time RT-PCR assay was developed and its performance characteristics determined by [facility]. This test has been [...] authorization isterminated or revoked sooner. CULTURE BLOOD [[id number]] Collected: 03/03/201807 Lab Status: Preliminary result Specimen: Blood Peripheral Updated: 03/05/202299 Culture No growth LEGIONELLA ANTIGEN URINE [[id number]] (Normal) Collected: 03/03/201803 Lab Status: Final result Specimen: Urine Updated: 03/04/20 0859 Legionella Antigen Urine Negative Narrative: This assay detects Legionella pneumophila serogroup one (1) antigen. A negative test result does not rule out the possibility of Legionella infection due to other serogroups or species of Legionella.A positive result may indicate a recent or remote infection with serogroup 1. CULTURE BLOOD [[id number]] Collected: 03/03/20 1759 Lab Status: Preliminary result Specimen: Blood Peripheral Updated: 03/05/20 2300 Culture No growth [id number] FUNGITELL BAL/BLOOD [[id number]] Collected: 03/03/2013 Lab Status: In process Specimen: Microbiology from Blood Updated: 03/03/20 0027 PNEUMOCYSTIS JIROVECI QUANT PCR [[id number]] Collected: 03/03/20 001 Lab Status: In process Specimen: Microbiology from Blood Updated: 03/03/20 0027 CULTURE BLOOD [[id number]] Collected: 03/02/20 1842 Lab Status: Preliminary result Specimen: Blood Peripheral Updated: 03/04/20 2330 Culture No growth CULTURE BLOOD [[id number]] Collected: 03/02/20 1829 Lab Status: Preliminary result Specimen: Blood Peripheral Updated: 03/04/20 2330 Culture No growth HERPES SIMPLEX 1+2 PCR CSF [[id number]] (Normal) Collected: 03/01/20 1241 Lab Status: Final result Specimen: Microbiology from CSF Updated: 03/01/20 1920 Herpes Simplex Virus 1 PCR CSF Not detected Herpes Simplex Virus 2 PCR CSF Not detected CRYPTOCOCCUS ANTIGEN CSF [[id number]] (Normal) Collected: 03/01/20 1116 Lab Status: Final result Specimen: Cerebral spinal fluid from CSF Updated: 03/01/20 1646 Cryptococcus Antigen CSF Negative SARS-COV-2 (COVID-19) IN HOUSE [[id number]] (Normal) Collected: 02/27/20 1641 Lab Status: Final result Specimen: Microbiology from Nasopharyngeal Updated: 02/28/20 1552 COVID-19 Not detected Narrative: This Real Time RT-PCR assay was developed and its performance characteristics determined by [facility]. This test has been [...] isterminated or revoked sooner. TOXOPLASMA GONDII PCR [[id number]] Collected: 02/27/20 0411 Lab Status: In process Specimen: Microbiology from Blood Updated: 02/27/20 0417 CULTURE BLOOD [[id number]] Collected: 02/26/20 1711 Lab Status: Final result Specimen: Blood Peripheral Updated: 03/03/20 0115 Culture No growth day 5 CULTURE BLOOD FUNGUS [[id number]] Collected: 02/26/201704 Lab Status: Preliminary result Specimen: Blood Peripheral Updated: 02/28/20 0950 Culture Culture in progress CULTURE BLOOD AFB [[id number]] Collected: 02/26/201704 Lab Status: Preliminary result Specimen: Blood Peripheral Updated: 03/06/20 0750 Culture No acid-fast bacillus isolated CULTURE BLOOD [[id number]] Collected: 02/26/201704 Lab Status: Final result Specimen: Blood Peripheral Updated: 03/03/20 0115 Culture No growth day 5 CYTOMEGALOVIRUS (CMV) QUANTITATIVE PLASMA [[id number]] (Normal) Collected: 02/26/20 120 Lab Status: Final result [...] RealTime CMV). ISA-JUAN VIRUS QUANT BLOOD STL [[id number]] Collected: 02/26/20 120 Lab Status: Final result [...] developed and its performance characteristics determined by [facility]. It has not been cleared [...] high complexity clinical laboratory testing. CULTURE URINE [[id number]] (Normal) Collected: 02/26/20 0008 Lab Status: Final result Specimen: Urine Clean Catch Updated: 02/27/20 0744 Culture Urine No growth (<100 CFU/mL) CULTURE BLOOD [[id number]] Collected: 02/25/202254 Lab Status: Final result Specimen: Blood Peripheral Updated: 03/02/20 0152 Culture No growth day 5 CULTURE BLOOD [[id number]] Collected: 02/25/202251 Lab Status: Final result Specimen: Blood Peripheral Updated: 03/02/20 0152 Culture No growth day 5 RESPIRATORY PATHOGEN PANEL BY PCR [[id number]] (Normal) Collected: 02/25/202236 Lab Status: Final result [...] and testing guidance. SARS-COV-2 (COVID-19) IN HOUSE [[id number]] (Normal) Collected: 02/25/207 Lab Status: Final result Specimen: Microbiology from Nasopharyngeal Updated: 02/26/20 1619 COVID-19 Not detected Narrative: This Real Time RT-PCR assay was developed and its performance characteristics determined by [facility]. 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 Krupa Raines MD, PGY Pulmonary and critical care fellow Pager [phone] Associated attestation - Elkin Rosenbaum MD - [...] from the original note were not included. [facility] Infectious Diseases Progress Note Admitted on: 02/25/2020 9:41 PM Hospital stay: Day 10 Room: 816/816-01 Primary Team: Attending: Savanah Bolton APRN-QUALITY PROCESS ENGINEER Reason for ID consultation: recent??COVID-19 positive on [...] right IJ DVT 09/27/19, who presented to [facility] on 02/24/10 with c/o intermittent low [...] PIV LABS CBC: Recent Labs Component Name 03/05/20235203/04/20232603/03/20 2345 WBC 16.7* 13.3* 16.4* RBC 3.39* 3.70* 3.83* HGB 9.8* 10.8* 11.2* HCT 28.4* 30.7* 32.1* MCV 83.8 83.0 83.8 BMP: Recent Labs Component Name 03/05/20235203/04/20232603/03/20 2345 NA 138 139 136 CL 104 106 103 CO2 22 21* 19* BUN 15 13 14 CREATININE 0.9 0.8 1.1 ALB 1.9* 2.1* 2.0* PROT 5.2* 5.5* 5.0* estimated creatinine clearance is 123.7 mL/min (based on SCr of 0.9 mg/dL). LFTs: Recent Labs Component Name 03/05/20235203/04/20232603/03/20 2345 03/03/20 0014 03/01/20 2352 02/29/20 2334 [...] M.D. Infectious Diseases fellow (Team 1) Pager [phone], cell phone [phone]. You can call or text me for [...] F/U on bronch studies * Rafaela Sood, BURN TABLE OPERATOR-QUALITY PROCESS ENGINEER - 03/06/2020 7:05 AM CDT Autologous Hematopoietic [...] lb) 11/15/19 123.4 kg (272 lb) Date 03/05/20 07 - 03/06/20 0659 03/06/20 07 - 03/07/20 0659 Shift 3753-0901 5685-3645 24 Hour Total 4931-1518 4011-8582 24 Hour Total INTAKE P.O. 1780 1780 [...] (03/03) -Consult Pulm; appreciate recs -Bronch today 03/06 Headaches - seem to worsen with [...] 8S for infectious workup Eli Sood APRN, FLAVOR MAKER-C Bone Marrow Transplant [facility] Associated attestation - ChiTony valencia MD - 03/06/2020 10:49 PM CDT I [...] prochlorperazine LABs: CBC: Recent Labs Component Name 03/04/20232603/03/20234403/03/20 0014 03/01/20 1039 WBC 13.3* 16.4* 15.8* - - RBC 3.70* 3.83* 3.76* - - HGB 10.8* 11.2* 11.0* - - HCT 30.7* 32.1* 31.8* - - DIFF - - - - Manual Differential to follow. - = values in this interval not displayed. BMP: Recent Labs Component Name 03/04/20232603/03/20 2345 03/03/20 0014 NA 139 136 134* CL 106 103 103 CO2 21* 19* 18* BUN 13 14 17 CREATININE 0.8 1.1 1.0 CALCIUM 8.4 7.6* 7.7* Coagulation: Recent Labs Component Name 02/27/20234802/27/20 0411 09/09/19 1242 PT 14.2 16.2* 12.9 INR 1.1 1.3 1.0 PTT - 37.9 27.4 Cardiac markers: Recent Labs Component Name 03/03/20 1759 03/03/20 1247 TROPONINI - <0.010 BNP 25 - Microbiology Results (Displays last 21 days for this encounter ONLY) Procedure Component Value - Date/Time SARS-COV-2 (COVID-19) IN HOUSE [[id number]] (Normal) Collected: 03/04/20 1045 Lab Status: Final result Specimen: Microbiology from Nasopharyngeal Updated: 03/05/20 0623 COVID-19 Not detected Narrative: This Real Time RT-PCR assay was developed and its performance characteristics determined by [facility]. This test has been [...] authorization isterminated or revoked sooner. CULTURE BLOOD [[id number]] Collected: 03/03/201807 Lab Status: Preliminary result Specimen: Blood Peripheral Updated: 03/04/20 2300 Culture No growth 24 hours LEGIONELLA ANTIGEN URINE [[id number]] (Normal) Collected: 03/03/20 180 Lab Status: Final result Specimen: Urine Updated: 03/04/20 0859 Legionella Antigen Urine Negative Narrative: This assay detects Legionella pneumophila serogroup one (1) antigen. A negative test result does not rule out the possibility of Legionella infection due to other serogroups or species of Legionella.A positive result may indicate a recent or remote infection with serogroup 1. CULTURE BLOOD [[id number]] Collected: 03/03/20 1759 Lab Status: Preliminary result Specimen: Blood Peripheral Updated: 03/04/20 2300 Culture No growth 24 hours [id number] FUNGITELL BAL/BLOOD [[id number]] Collected: 03/03/20 0014 Lab Status: In process Specimen: Microbiology from Blood Updated: 03/03/20 0027 PNEUMOCYSTIS JIROVECI QUANT PCR [[id number]] Collected: 03/03/20 0014 Lab Status: In process Specimen: Microbiology from Blood Updated: 03/03/20 0027 CULTURE BLOOD [[id number]] Collected: 03/02/20 1842 Lab Status: Preliminary result Specimen: Blood Peripheral Updated: 03/04/20 2330 Culture No growth CULTURE BLOOD [[id number]] Collected: 03/02/20 1829 Lab Status: Preliminary result Specimen: Blood Peripheral Updated: 03/04/20 2330 Culture No growth HERPES SIMPLEX 1+2 PCR CSF [[id number]] (Normal) Collected: 03/01/20 1241 Lab Status: Final result Specimen: Microbiology from CSF Updated: 03/01/20 1920 Herpes Simplex Virus 1 PCR CSF Not detected Herpes Simplex Virus 2 PCR CSF Not detected CRYPTOCOCCUS ANTIGEN CSF [[id number]] (Normal) Collected: 03/01/20 1116 Lab Status: Final result Specimen: Cerebral spinal fluid from CSF Updated: 03/01/20 1646 Cryptococcus Antigen CSF Negative SARS-COV-2 (COVID-19) IN HOUSE [[id number]] (Normal) Collected: 02/27/20 1641 Lab Status: Final result Specimen: Microbiology from Nasopharyngeal Updated: 02/28/20 1552 COVID-19 Not detected Narrative: This Real Time RT-PCR assay was developed and its performance characteristics determined by [facility]. This test has been [...] isterminated or revoked sooner. TOXOPLASMA GONDII PCR [[id number]] Collected: 02/27/20 0411 Lab Status: In process Specimen: Microbiology from Blood Updated: 02/27/20 0417 CULTURE BLOOD [[id number]] Collected: 02/26/20 171 Lab Status: Final result Specimen: Blood Peripheral Updated: 03/03/20 0115 Culture No growth day 5 CULTURE BLOOD FUNGUS [[id number]] Collected: 02/26/20 170 Lab Status: Preliminary result Specimen: Blood Peripheral Updated: 02/28/20 0950 Culture Culture in progress CULTURE BLOOD AFB [[id number]] Collected: 02/26/201704 Lab Status: Preliminary result Specimen: Blood Peripheral Updated: 02/27/20 1321 Culture Culture in progress CULTURE BLOOD [[id number]] Collected: 02/26/201704 Lab Status: Final result Specimen: Blood Peripheral Updated: 03/03/20 0115 Culture No growth day 5 CYTOMEGALOVIRUS (CMV) QUANTITATIVE PLASMA [[id number]] (Normal) Collected: 02/26/20 120 Lab Status: Final result Specimen: Blood Updated: 02/28/20 173 CMV Quant by PCR, Interp Not Detected [...] RealTime CMV). ISA-JUAN VIRUS QUANT BLOOD STL [[id number]] Collected: 02/26/20 1201 Lab Status: Final result [...] developed and its performance characteristics determined by [facility]. It has not been cleared [...] high complexity clinical laboratory testing. CULTURE URINE [[id number]] (Normal) Collected: 02/26/20 0008 Lab Status: Final result Specimen: Urine Clean Catch Updated: 02/27/20 0744 Culture Urine No growth (<100 CFU/mL) CULTURE BLOOD [[id number]] Collected: 02/25/202254 Lab Status: Final result Specimen: Blood Peripheral Updated: 03/02/20 0152 Culture No growth day 5 CULTURE BLOOD [[id number]] Collected: 02/25/202251 Lab Status: Final result Specimen: Blood Peripheral Updated: 03/02/20 0152 Culture No growth day 5 RESPIRATORY PATHOGEN PANEL BY PCR [[id number]] (Normal) Collected: 02/25/202236 Lab Status: Final result [...] and testing guidance. SARS-COV-2 (COVID-19) IN HOUSE [[id number]] (Normal) Collected: 02/25/20 2237 Lab Status: Final result Specimen: Microbiology from Nasopharyngeal Updated: 02/26/20 1619 COVID-19 Not detected Narrative: This Real Time RT-PCR assay was developed and its performance characteristics determined by [facility]. 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 - Continue antibiotics as recommended by ID (Vancomycin since 02/24, Cefepime 02/24-03/04, Meropenem 03/04 - Agree with Prednisone 90 mg daily started by BMT service 03/05/2020 Kurpa Raines MD, PGY Pulmonary and critical care fellow Pager [phone] Associated attestation - William Munoz MD - [...] Date of service: 03/05/2020 William Munoz MD Safety Patrol Officer of Internal Medicine Division of Pulmonary, Critical Care and Sleep Medicine [facility] Pager: [phone] * Krupa Raines MD - 03/05/2020 12:18 [...] Prevent Transmission of Infection Outcome: Ongoing * Alida Marshall APRN-QUALITY PROCESS ENGINEER - 03/04/2020 6:45 PM CDT Autologous Hematopoietic [...] lb) 11/15/19 123.4 kg (272 lb) Date 03/04/20 07 - 03/05/20 0659 03/05/20 07 - 03/06/20 0659 Shift 3701-0669 5201-4251 24 Hour Total 4879-3596 9842-7547 24 Hour Total INTAKE P.O. 560 560 I.V.(mL/kg/hr) 3686.4 3686.4 Shift Total(mL/kg) 560(4.6) 560(4.6) 3686.4(30.4) 3686.4(30.4) OUTPUT Urine(mL/kg/hr) 2350(1.6) 2350(0.8) Shift Total(mL/kg) 2350(19.4) 2350(19.4) NET -1789 -1789 3686.4 3686.4 Weight (kg) 121.2 121.2 121.2 [...] and intact. LABS: Recent Labs Component Name 03/04/20232603/03/20234403/03/20 0014 02/27/20 0411 WBC 13.3* 16.4* 15.8* [...] interval not displayed. Recent Labs Component Name 03/04/20232603/03/20234403/03/2013 BUN 13 14 17 CREATININE 0.8 1.1 [...] >60 >60 >60 Recent Labs Component Name 03/04/20232603/03/20 2345 03/03/20 0014 MAGNESIUM 2.3 1.7 1.7 Recent Labs Component Name 03/04/20232603/03/20 2345 03/03/20 0014 PHOS 2.4 3.3 2.4 Pathology: CD4: [...] cell Caregiver: sister, girlfriend Preferred D/C Pharmacy: [facility] Intended lodging: home Referring provider: Cesar Tavares Disposition: Remain on 8 for infectious workup Alida Marshall APRN, FLAVOR MAKER-C Bone Marrow Transplant [facility] Office #[phone] I independently interviewed and examined Jalil Luis [...] unless clinical/VS change Hillary Apple MD MSc technician test systems Interim Director, Division of Hematology/Oncology [facility] Associated attestation - Hillary Apple MD - 03/05/2020 8:32 PM CDT Discussed with pulmonary Will await final recs re: bronch tomorrow Aurelio is very discouraged and understandably fearful of being on a ventilator He is frustrated by remaining on isolation and not having his oncology radiation physician be able to visit We reminded him to remain optimistic for steroid responsiveness and acknowledged his frustration Hillary Apple MD MSc technician test systems Interim Director, Division of Hematology/Oncology [facility] * Hillary Apple MD - 03/04/2020 9:16 [...] to proph Hold Lovenox for bronch Friday evening New dopplers done yesterday, likely for fever work-up Hillary Apple MD MSc technician test systems Interim Director, Division of Hematology/Oncology [facility] * Vane Kothari RN - 03/03/2020 11:46 PM CDT 1999: call placed to BMT POTTERY KILN BUILDER, pt refusing COVID swab at this time. Will be agreeable to another swabtomorrow. 2339: Call placed to BMT POTTERY KILN BUILDER, Austyn, regarding pt o2 saturations 88-90% on 5L NC. Will await new orders. 0530: JED Zaman notified of VS * Alida Marshall APRN-QUALITY PROCESS ENGINEER - 03/03/2020 6:52 PM CDT Autologous Hematopoietic [...] BP: 94/54 101/59 Pulse: 93 96 Resp: Temp: 99.7 ??F (!) 100.7 ??F SpO2: (!) 88% 95% 97% 96% Weight: Height: Wt Readings from Last 3 Encounters: 03/02/20 121.2 kg (267 lb 3.2 oz) 02/26/20 120.2 kg (265 lb) 11/15/19 123.4 kg (272 lb) Date 03/03/20699 - 03/04/2065803/04/20699 - 03/05/20 0659 Shift 0178-8774 7925-5656 24 Hour Total 7837-5863 3180-7308 24 Hour Total INTAKE P.O. 600 600 [...] cell Caregiver: sister, girlfriend Preferred D/C Pharmacy: [facility] Intended lodging: home Referring provider: Cesar Tavares Disposition: Remain on 8S for infectious workup Alida Marshall APRN, FLAVOR MAKER-C Bone Marrow Transplant [facility] Office #[phone] Associated attestation - Hillary Apple MD - 03/04/2020 5:44 PM CDT Will also review possibility of BCNU pneumonitis as explanation of current clinical picture. * Jayson Friedman MD - 03/03/2020 10:13 AM CDT [facility] Infectious Diseases Progress Note Admitted on: 02/25/2020 9:41 PM Hospital stay: Day 7 Room: 808/8- Primary Team: Attending: Shalini Segal MD Reason [...] right IJ DVT 09/27/19, who presented to [facility] on 02/24/10 with c/o intermittent low [...] PIV LABS CBC: Recent Labs Component Name 03/03/201303/01/20235102/29/20 2334 WBC 15.8* 20.6* 23.4* RBC 3.76* 3.77* 3.64* HGB 11.0* 11.0* 10.8* HCT 31.8* 31.8* 30.8* MCV 84.6 84.4 84.6 BMP: Recent Labs Component Name 03/03/201303/01/20235102/29/20 2334 NA 134* 142 142 CL 103 107 109* CO2 18* 18* 21* BUN 17 21 21 CREATININE 1.0 0.8 1.0 ALB 2.2* 2.4* 2.5* PROT 4.9* 5.3* 5.5* estimated creatinine clearance is 111.3 mL/min (based on SCr of 1 mg/dL). LFTs: Recent Labs Component Name 03/03/201303/01/20235102/29/20 2334 02/29/20 0012 02/27/20 2349 02/27/20 0411 [...] 25 29 19 15 21 20 23 2031 29 31 31 19 22 19 20 [...] M.D. Infectious Diseases fellow (Team 1) Pager [phone], cell phone [phone]. You can call or text me for [...] Pulmonary Medicine Progress Note Name: Jalil Luis, [id number] Age: [age] year old Room: 808/808- Date [...] pertinent labs/imaging below: Recent Labs Component Name 03/01/20235102/29/20233302/29/20 0012 WBC 20.6* 23.4* 26.1* RBC 3.77* 3.64* 3.67* HGB 11.0* 10.8* 10.7* HCT 31.8* 30.8* 31.1* MCV 84.4 84.6 84.7 MCHC 34.6 35.1 34.4 PLTCOUNT 416* 448* 440* NEUTPCT 88.1* 88.6* 92.0* NEUTABS 18.1* 20.7* 24.0* Recent Labs Component Name 03/01/20 23502/29/20233302/29/20 0012 POTASSIUM 3.7 4.3 4.2 CO2 18* 21* 19* BUN 21 21 18 CREATININE 0.8 1.0 0.9 GLUCOSE 122* 125* 122* CALCIUM 8.2* 8.4 8.6 ALT 94* 95* 40 ALKPHOS 86 87 89 AST 29 59* 26 EGFR >60 >60 >60 Microbiology Results (Displays last 21 days for this encounter ONLY) Procedure Component Value - Date/Time CULTURE BLOOD [[id number]] Lab Status: No result Specimen: Blood Peripheral CULTURE BLOOD [[id number]] Lab Status: No result Specimen: Blood Peripheral HERPES SIMPLEX 1+2 PCR CSF [[id number]] (Normal) Collected: 03/01/20 1241 Lab Status: Final result Specimen: Microbiology from CSF Updated: 03/01/20 1920 Herpes Simplex Virus 1 PCR CSF Not detected Herpes Simplex Virus 2 PCR CSF Not detected CRYPTOCOCCUS ANTIGEN CSF [[id number]] (Normal) Collected: 03/01/20 1116 Lab Status: Final result Specimen: Cerebral spinal fluid from CSF Updated: 03/01/20 1646 Cryptococcus Antigen CSF Negative SARS-COV-2 (COVID-19) IN HOUSE [[id number]] (Normal) Collected: 02/27/20 1641 Lab Status: Final result Specimen: Microbiology from Nasopharyngeal Updated: 02/28/20 1552 COVID-19 Not detected Narrative: This Real Time RT-PCR assay was developed and its performance characteristics determined by [facility]. This test has been [...] isterminated or revoked sooner. TOXOPLASMA GONDII PCR [[id number]] Collected: 02/27/20 0411 Lab Status: In process Specimen: Microbiology from Blood Updated: 02/27/20 0417 CULTURE BLOOD [[id number]] Collected: 02/26/20 171 Lab Status: Preliminary result Specimen: Blood Peripheral Updated: 02/29/20 0112 Culture No growth CULTURE BLOOD FUNGUS [[id number]] Collected: 02/26/20 170 Lab Status: Preliminary result Specimen: Blood Peripheral Updated: 02/28/20 0950 Culture Culture in progress CULTURE BLOOD AFB [[id number]] Collected: 02/26/20 170 Lab Status: Preliminary result Specimen: Blood Peripheral Updated: 02/27/20 1321 Culture Culture in progress CULTURE BLOOD [[id number]] Collected: 02/26/20 1705 Lab Status: Preliminary result Specimen: Blood Peripheral Updated: 02/29/20 0112 Culture No growth CYTOMEGALOVIRUS (CMV) QUANTITATIVE PLASMA [[id number]] (Normal) Collected: 02/26/20 1201 Lab Status: Final [...] RealTime CMV). ISA-JUAN VIRUS QUANT BLOOD STL [[id number]] Collected: 02/26/20 1201 Lab Status: Final result [...] developed and its performance characteristics determined by [facility]. It has not been cleared [...] high complexity clinical laboratory testing. CULTURE URINE [[id number]] (Normal) Collected: 02/26/20 0008 Lab Status: Final result Specimen: Urine Clean Catch Updated: 02/27/20 0744 Culture Urine No growth (<100 CFU/mL) CULTURE BLOOD [[id number]] Collected: 02/25/202254 Lab Status: Final result Specimen: Blood Peripheral Updated: 03/02/20 0152 Culture No growth day 5 CULTURE BLOOD [[id number]] Collected: 02/25/202251 Lab Status: Final result Specimen: Blood Peripheral Updated: 03/02/20 0152 Culture No growth day 5 RESPIRATORY PATHOGEN PANEL BY PCR [[id number]] (Normal) Collected: 02/25/202236 Lab Status: Final result [...] and testing guidance. SARS-COV-2 (COVID-19) IN HOUSE [[id number]] (Normal) Collected: 02/25/202236 Lab Status: Final result Specimen: Microbiology from Nasopharyngeal Updated: 02/26/20 1619 COVID-19 Not detected Narrative: This Real Time RT-PCR assay was developed and its performance characteristics determined by [facility]. This test has been [...] M.D. Pulmonary and Critical Care Fellow, PGY-6 [facility] Division of Pulmonary, Critical Care and Sleep Medicine Pager: [phone] 03/02/2020 Associated attestation - Hipolito Marlow MD [...] (TYLENOL) tablet 650 mg, Oral, Once [COMPLETED] gytmrikcmx-bidnqyzavbweb-nuotshwq (FIORICET) 50-325-40 MG tablet 1 tablet, Oral, [...] lb) 11/15/19 123.4 kg (272 lb) Date 03/02/20 07 - 03/03/20 0659 03/03/20 07 - 03/04/20 0659 Shift 8630-0101 6047-5435 24 Hour Total 2423-8694 3944-8590 24 Hour Total INTAKE P.O. 2040 550 2590 Shift Total(mL/kg) 2040(16.8) 550(4.5) 2590(21.4) OUTPUT Urine(mL/kg/hr) 2195(1.5) 1700(1.2) 3895(1.3) Shift Total(mL/kg) 2195(18.1) 1700(14) 3895(32.1) NET -155 -1150 -1305 Weight (kg) 121.2 121.2 121.2 121.2 [...] LABS: Recent Labs Component Name 03/03/20 0014 03/01/20235102/29/20 2334 02/27/20 0411 WBC 15.8* 20.6* 23.4* [...] not displayed. Recent Labs Component Name 03/03/20 0014 03/01/20235102/29/20 233 BUN 17 21 21 CREATININE 1.0 0.8 [...] >60 >60 Recent Labs Component Name 03/03/20 0014 03/01/20 2352 02/29/20 2334 MAGNESIUM 1.7 1.9 1.9 Recent Labs Component Name 03/03/20 0014 03/01/20 2352 02/29/20 2334 PHOS 2.4 3.4 3.2 Pathology: CD4: [...] cell Caregiver: sister, girlfriend Preferred D/C Pharmacy: [facility] Intended lodging: home Referring provider: Cesar Tavares Disposition: Remain on 8S for infectious workup Eli Sood APRN, FLAVOR MAKER-C Bone Marrow Transplant [facility] I personally evaluated and examined Mr. Jalil Luis. I confirmed the alfonso elements of of history and physical examination. I also discussed the assessment and plan in detail with the team on rounds and with the patient. I made some modifications to the above note. I fully concur with the above assessment and plan. Ezio Segal MD Airplane Technician Department of Internal Medicine Division of Hematology [...] signs & symptoms Outcome: Ongoing * Lavinia Huang APRN-QUALITY PROCESS ENGINEER - 03/02/2020 11:36 PM CDT POTTER[employer] KILN BUILDER bedside to assess pt @2140, due to [...] Pulse: 53 74 84 82 Resp: 18 22 Temp: 98.1 ??F (!) 101.3 ??F [...] >[address] completed today- results pending POTTERY KILN BUILDER Called CT for prelim read, which he stated looked unchanged from the prior chest CT, most likelyrelated to COVID. POTTERY KILN BUILDER will monitor pt closely overnight and will consult with Pulm in the a.m. Lavinia [facility] BMT pager [phone] [facility] BMT * Keli Case APRN-CNP - 03/02/2020 5:01 PM CDT HPI: febrile temp of 101.3, SPO2 89% OBJ: Vitals: 03/02/20 0835 03/02/20 0916 03/02/20 1206 03/02/20 1559 BP: 123/72 128/87 Pulse: 53 74 Resp: 20 18 20 Temp: 98.1 ??F (!) 101.3 ??F [...] 03/03 @ 0530 -albuterol Q4hrs PRN Signed: FEDE Brink Blood and Marrow Transplant [facility] * Whitney Guzman RN - 03/02/2020 1:26 [...] per nutrition guidelines. Jocelin Griggs MA, RD, LDN Pager: [phone] * Shalini Segal MD - 03/02/2020 9:01 [...] He feels headache correlate with anxiety, on [id number] daily Denies F/C/V/D ROS: A comprehensive review [...] lb) 11/15/19 123.4 kg (272 lb) Date 03/01/20699 - 03/02/2065803/02/20699 - 03/03/20 0659 Shift 2445-1560 1406-7474 24 Hour Total 9497-6160 3753-1793 24 Hour Total INTAKE P.O. 0914 403 1909 I.V.(mL/kg/hr) 1727.3(1.2) 785.8(0.5) 2513.1(0.9) Shift Total(mL/kg) 3187.3(26) [...] swelling noted LABS: Recent Labs Component Name 03/01/20 2352 02/29/20 [...] >60 >60 >60 Recent Labs Component Name 03/01/20235102/29/20233302/29/20 0012 MAGNESIUM 1.9 1.9 1.9 Recent Labs Component Name 03/01/20235102/29/20233302/29/20 0012 PHOS 3.4 3.2 3.2 Pathology: CD34: [...] cell Caregiver: sister, girlfriend Preferred D/C Pharmacy: [facility] Intended lodging: home Referring provider: Cesar Tavares Disposition: Remain on 8S for infectious workup Keli Evie, AGNP-BC Blood and Marrow Transplant [facility] I personally evaluated and examined Mr. Jalil Luis. I confirmed the alfonso elements of of history and physical examination. I also discussed the assessment and plan in detail with the team on rounds and with the patient. I made some modifications to the above note. I fully concur with the above assessment and plan. Ezio Segal MD Airplane Technician Department of Internal Medicine Division of Hematology Oncology * Jayson Friedman MD - 03/01/2020 12:19 PM CDT [facility] Infectious Diseases Progress Note Admitted on: 02/25/2020 9:41 PM Hospital stay: Day 5 Room: 808/808- Primary Team: Attending: Shalini Segal MD Reason [...] right IJ DVT 09/27/19, who presented to [facility] on 02/24/10 with c/o intermittent low grade fevers, moderate to severe headache, photophobia, and neck pain over the last 2 weeks. ID is called for consult regarding management of recent positive??COVID- 19 and fever. SUBJECTIVE & INTERVAL HISTORY: Patient had LP with IR today. 08/13 pain. Mild neck stiffness. No other complains. [...] LABS CBC: Recent Labs Component Name 02/29/20 2334 02/29/20 0012 02/27/20 2349 WBC 23.4* 26.1* 19.0* RBC 3.64* 3.67* 3.68* HGB 10.8* 10.7* 10.7* HCT 30.8* 31.1* 31.5* MCV 84.6 84.7 85.6 BMP: Recent Labs Component Name 02/29/20 2334 02/29/20 0012 02/27/20 2349 NA 142 143 142 [...] 80 82 86 83 90 104 126 230740* 108 108 68 65 74 63 70 [...] etc), fungal and viral meningitis,and other pathogenic MERCHANDISE HANDLER infection. Ground glass opacity in bilateral lungs pm CT C/A/P could 2nd to previous COVID infection. Very less likely 2nd to fungal infection. 2. Headache, associated with photophobia and neck pain: Severe, duration ~2 weeks. Besides meningitis as discussion under #1, other occupying MERCHANDISE HANDLER infection/tumor also on differential. MRI brain negative. [...] M.D. Infectious Diseases fellow (Team 1) Pager [phone], cell phone [phone]. You can call or text me for [...] lb) 11/15/19 123.4 kg (272 lb) Date 02/29/20 07 - 03/01/20 0659 03/01/20 07 - 03/02/20 0659 Shift 0176-64731858 24 Hour Total 8358-1316 1899-5403 24 Hour Total INTAKE P.O. 1080 1080 600 600 I.V.(mL/kg/hr) 1550.4 1550.4 Shift Total(mL/kg) 1080(8.8) 1080(8.8) 2150.4(17.5) 2150.4(17.5) OUTPUT Urine(mL/kg/hr) 2000(1.4) 1320(0.9) 3320(1.1) 700 700 Shift Total(mL/kg) 2000(16.3) 1320(10.8) 3320(27.1) 700(5.7) 700(5.7) NET -920 -1320 [...] LABS: Recent Labs Component Name 02/29/20 2334 02/29/202 02/27/20 2349 02/27/20 0411 WBC 23.4* 26.1* [...] - 100 Recent Labs Component Name 02/29/20 23302/29/202 02/27/20 2349 BUN 21 18 16 CREATININE [...] Keli Case, AGNP-BC Blood and Marrow Transplant [facility] I personally evaluated and examined Mr. Jalil Luis. I confirmed the alfonso elements of of history and physical examination. I also discussed the assessment and plan in detail with the team on rounds and with the patient. I made some modifications to the above note. I fully concur with the above assessment and plan. Ezio Segal MD Airplane Technician Department of Internal Medicine Division of Hematology Oncology * Jayson Friedman MD - 02/29/2020 1:33 PM CDT [facility] Infectious Diseases Progress Note Admitted on: 02/25/2020 9:41 PM Hospital stay: Day 4 Room: [address] [place] [address] Primary Team: Attending: Shalini Segal MD Reason [...] right IJ DVT 09/27/19, who presented to [facility] on 02/24/10 with c/o intermittent low grade fevers, moderate to severe headache, photophobia, and neck pain over the last 2 weeks. ID is called for consult regarding management of recent positive??COVID- 19 and fever. SUBJECTIVE & INTERVAL HISTORY: Patient had LP attempt on bedside but failed. Have headache 2/10. Still some neck stiffness. No fever. No [...] PIV LABS CBC: Recent Labs Component Name 02/29/201102/27/20234802/27/20 0411 WBC 26.1* 19.0* 7.3 RBC 3.67* 3.68* 4.15* HGB 10.7* 10.7* 11.9* HCT 31.1* 31.5* 35.4* MCV 84.7 85.6 85.3 BMP: Recent Labs Component Name 02/29/201102/27/20234802/27/20 0411 NA 143 142 140 CL 111* [...] etc), fungal and viral meningitis,and other pathogenic MERCHANDISE HANDLER infection. Ground glass opacity in bilateral lungs pm CT C/A/P could 2nd to previous COVID infection. Very less likely 2nd to fungal infection. 2. Headache, associated with photophobia and neck pain: Severe, duration ~2 weeks. Besides meningitis as discussion under #1, other occupying MERCHANDISE HANDLER infection/tumor also on differential. MRI brain negative. [...] M.D. Infectious Diseases fellow (Team 1) Pager [phone], cell phone [phone]. You can call or text me for communication. Associated attestation - Joce Damian DO - 02/29/2020 4:15 PM CDT I interviewed and examined the patient and discussed the patient with the team. I reviewed the fellow's note and agree with the findings and assessment and plan except as noted below. Please see the fellow's note. * Cassie Wilson RN - 02/29/2020 12:35 PM CDT Problem: Pain/Discomfort [...] and headaches - concern for meningitis vs. MERCHANDISE HANDLER infection/tumor; more likely asx meningitis and less [...] lb) 11/15/19 123.4 kg (272 lb) Date 02/28/20 07 - 02/29/20 0659 02/29/20 07 - 03/01/20 0659 Shift 1083-0209 8313-4962 24 Hour Total 9095-3598 9441-7823 24 Hour Total INTAKE I.V.(mL/kg/hr) 1409.4(1) 1409.4(0.5) [...] dry, intact LABS: Recent Labs Component Name 02/29/201102/27/20234802/27/2041002/25/20 2252 WBC 26.1* 19.0* 7.3 8.5 RBC [...] - 100 - Recent Labs Component Name 07/28/20 0012 07/26/20 2349 07/26/20 0411 BUN 18 16 12 CREATININE 0.9 0.9 [...] >60 >60 Recent Labs Component Name 02/29/20 0012 02/27/20 2349 02/27/20 0411 MAGNESIUM 1.9 1.8 1.9 Recent Labs Component Name 02/29/20 0012 02/27/20 2349 02/27/20 0411 PHOS 3.2 2.7 3.5 Pathology: CD34: [...] 8N for infectious workup Eli Sood APRN, FLAVOR MAKER-C Bone Marrow Transplant [facility] I personally evaluated and examined Mr. Jalil Luis. I confirmed the alfonso elements of of history and physical examination. I also discussed the assessment and plan in detail with the team on rounds and with the patient. I made some modifications to the above note. I fully concur with the above assessment and plan. Ezio Segal MD Airplane Technician Department of Internal Medicine Division of Hematology [...] Outcome: Ongoing * Vianey Magaña DO - 02/28/2020 11:31 AM CDT Neurology Progress [...] unspecified body region Client Specimen ID # [id number] Number of Markers 3 Flow Cytometry Results [...] % CD19+CD27+IgD+ 7-29 % CD19+CD27+IgD- 3-23 % CD19+PR90-JbA+ 29-93 % Disclaimer Test performed at [facility], [address] [place] [address], [address]. This test was developed and its performance [...] perform high complexity clinical testing. By law [place], CD4 lymphocyte counts on patients with HIV infection must be reported by the physician to the [facility] authority. Embedded Images CBC W AUTO DIFFERENTIAL [...] Friedman MD - 02/28/2020 10:48 AM CDT [facility] Infectious Diseases Progress Note Admitted on: 02/25/2020 9:41 PM Hospital stay: Day 3 Room: [address] [place] [address] Primary Team: Attending: Shalini Segal MD Reason [...] right IJ DVT 09/27/19, who presented to [facility] on 02/24/10 with c/o intermittent low [...] PIV LABS CBC: Recent Labs Component Name 02/27/20 2349 02/27/20 0411 02/25/20 2252 WBC 19.0* 7.3 8.5 RBC 3.68* 4.15* 4.28* HGB 10.7* 11.9* 12.4* HCT 31.5* 35.4* 36.4* MCV 85.6 85.3 85.0 BMP: Recent Labs Component Name 02/27/20 2349 02/27/20 0411 02/26/20 0042 NA 142 140 136 CL 108* 108* 102 CO2 22 19* 23 BUN 16 12 11 CREATININE 0.9 0.8 1.0 ALB 2.6* 2.8* 2.7* PROT 5.7* 6.2 5.9* estimated creatinine clearance is 123.2 mL/min (based on SCr of 0.9 mg/dL). LFTs: Recent Labs Component Name 02/27/20 2349 02/27/20 0411 02/26/20 0042 11/15/19 [...] etc), fungal and viral meningitis,and other pathogenic MERCHANDISE HANDLER infection. Ground glass opacity in bilateral lungs pm CT C/A/P could 2nd to previous COVID infection. Very less likely 2nd to fungal infection. 2. Headache, associated with photophobia and neck pain: Severe, duration ~2 weeks. Besides meningitis as discussion under #1, other occupying MERCHANDISE HANDLER infection/tumor also on differential. MRI brain negative. [...] M.D. Infectious Diseases fellow (Team 1) Pager [phone], cell phone [phone]. You can call or text me for [...] Data Review CBC: Recent Labs Component Name 02/27/20234802/27/201 02/25/20 2252 WBC 19.0* 7.3 8.5 HGB 10.7* 11.9* 12.4* BMP: Recent Labs Component Name 02/27/20234802/27/20 0411 02/26/20 0042 NA 142 140 136 CL 108* 108* 102 CO2 22 19* 23 BUN 16 12 11 CREATININE 0.9 0.8 1.0 Recent Labs Component Name 02/27/20234802/27/201 02/26/20 0042 02/25/20 2252 CALCIUM 8.6 8.8 8.6 - PHOS 2.7 3.5 - 2.9 LFT: Recent Labs Component Name 02/27/20234802/27/20 0411 02/26/20 0042 PROT 5.7* 6.2 5.9* ALB 2.6* 2.8* 2.7* ALKPHOS 97 109 110 AST 22 22 29 ALT 29 29 31 Coagulation: Recent Labs Component Name 02/27/20234802/27/20 0411 09/09/19 1242 PT 14.2 16.2* 12.9 [...] with attending Dr. Orozco, Neurology attending. Adeline Becky (MS3) 02/28/2020 10:09 AM * Alecia Aldana [...] nursing assessments: Independent Transportation (who): Sister or Resident Care Aid/Support: [phone] Home/Functional Status: Functional and Cognitive Status Is [...] For any questions or needs please contact: Finance Attorney Name/Phone number: Alecia Aldana RN * Shalini [...] 127/78 121/78 Pulse: 76 92 77 Resp: 18 18 18 Temp: 97.7 ??F 98.1 ??F 98.5 ??F SpO2: 97% 94% 94% Weight: 119.4 kg (263 lb 3.2 oz) Height: 1.702 m (5' 7 ) Wt Readings from Last 3 Encounters: 02/27/20 119.4 kg (263 lb 3.2 oz) 02/26/20 120.2 kg (265 lb) 11/15/19 123.4 kg (272 lb) Date 02/27/20699 - 02/28/20 0659 02/28/20 07 - 02/29/20 0659 Shift 7611-7186 6528-0284 24 Hour Total 3936-7060 6929-5728 24 Hour Total INTAKE P.O. 900 900 [...] no rashes, no suspicious skin lesions noted LUW-Htr-wkfbjh, no erythema, no drainage LABS: Recent Labs [...] 100 - - Recent Labs Component Name 02/27/20 2349 02/27/20 0411 02/26/20 0042 BUN 16 12 11 CREATININE 0.9 [...] >60 >60 Recent Labs Component Name 02/27/20 2349 02/27/20 0411 02/26/20 0042 MAGNESIUM 1.8 1.9 1.7 Recent Labs [...] cell Caregiver: sister, girlfriend Preferred D/C Pharmacy: [facility] Intended lodging: home Referring provider: Cesar Tavares Disposition: Remain on 8N for infectious workup Eli Sood APRN, FLAVOR MAKER-C Bone Marrow Transplant [facility] Discontinue dexa today ID re consult LP [...] above assessment and plan. Ezio Segal MD Airplane Technician Department of Internal Medicine Division of Hematology [...] Ezio Pang MD PGY-2 Neurology * Annika Baldwin, RN - 02/27/2020 8:24 AM CDT Problem: [...] 02/27/20 0659 02/27/20699 - 02/28/20 0659 Shift 0558-3148 6679-0528 24 Hour Total 0996-9485 0773-5675 24 Hour Total INTAKE P.O. 480 480 [...] lesions noted LABS: Recent Labs Component Name 02/27/20 0411 02/25/20 2252 11/15/19 0911 11/11/19 1231 WBC 7.3 [...] 1.9 1.7 1.8 Recent Labs Component Name 02/27/2041002/25/20 2252 11/15/19 0911 PHOS 3.5 2.9 2.8 [...] cell Caregiver: sister, girlfriend Preferred D/C Pharmacy: [facility] Intended lodging: home Referring provider: Cesar Tavares Disposition: Remain on 8N for infectious workup MISSY Nava- Bone Marrow Transplant Clinic [facility] Day +130 autoSCT for MZL The [...] has worn off ?? I saw Jalil Donal Luis with Katia Roque [employer] BUILDER, examined him, reviewed the note, and participated in all of the medical decisions. ?? Bill Ferrera M.D. Director, Blood and Marrow Transplantation Senior Process Engineer, Department of Internal Medicine [facility] * Radha Saeed RN - 02/26/2020 8:17 [...] droplet to r/o meningitis Monica Latif APRN, FLAVOR MAKER-[facility] Bone Marrow Transplant [phone] Bill Ferrera M.D. Director, Blood and Marrow Transplantation Senior Process Engineer, Department of Internal Medicine [facility] * Annika Baldwin RN - 02/26/2020 12:21 [...] such as cough, runny nose, congestion, etc. Dillon that warm feeling overnight last night but [...] 800-160 MG tablet 1 tablet, Oral, MON, WEDAND FRI ?? valACYclovir (VALTREX) tablet 500 mg, [...] 121.7 kg (268 lb 6.4 oz) Date 02/25/20 07 - 02/26/20 0659 02/26/20699 - 02/27/20 0659 Shift 0969-2479 2861-8848 24 Hour Total 1503-5879 9887-2683 24 Hour Total INTAKE Shift Total(mL/kg) OUTPUT [...] >60 >60 Recent Labs Component Name 02/26/20 00411/15/19 0911/11/19 1231 MAGNESIUM 1.7 1.8 1.8 Recent Labs Component Name 02/25/20 2252 11/15/19 0911/11/19 1231 PHOS 2.9 2.8 3.5 Infectious Workup [...] on 8N for infectious workup Katia Roque, [facility]- Bone Marrow Transplant Clinic [facility] Day +129 autoSCT for MZL The [...] by ID Consult neurology I reviewed Jalil Luis case with Katia Roque [employer]N BU[employer]DER due to covid countermeasures, reviewed the note, and participated in all of the medical decisions. Bill Ferrera M.D. Director, Blood and Marrow Transplantation Senior Process Engineer, Department of Internal Medicine [facility] * Rylee Coreas RN - 02/25/2020 10:13 [...] documented in this encounter H&P Notes * Jeo Dennison MD - 03/06/2020 3:04 PM CDT H&P Note Admit Date: 02/25/2020 Length of Stay 10 Day(s) Room 816 Jalil Luis 1970 [id number] CrCl: Estimated Creatinine Clearance: 123.7 mL/min (based on SCr of 0.9 mg/dL). 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 Review of Systems: Intubated. Objective: Vitals: 03/05/20 2336 03/06/20 0330 03/06/20 0838 03/06/20 1204 BP: 117/72 124/54 132/81 Pulse: 86 74 69 95 Resp: Temp: 98.8 ??F (37.1 ??C) 98.5 ??F [...] 93. IMG: All pertinent imaging reviewed in [facility] MICRO: All pertinent micro results reviewed in [facility] Assessment and Plan Active Problems: Fever [...] to help guide management. 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 Bill Ferrera M.D. Director, Blood and Marrow Transplantation Senior Process Engineer, Department of Internal Medicine [facility] documented in this encounter Procedure Notes * Annabella Hargrove RCP - 03/06/2020 5:00 PM CDT 1500: pt recovering in Bronch Suite. Anesthesia at bedside managing airway and anesthesia vent. 1545: pt placed on Transport Vent: VT 530, RR 12, PEEP 10, FiO2 70%. PACU nurse at bedside. 1700: pt continues to recover in Bronch Suite. PACU nurse and COUNSELING SERVICES DIRECTOR present bedside. Preparing for Transport via Transport Vent: VT 530, RR15, PEEP 10, FiO2 100% Pt vital sign stable at this time. * Rafaela Sood APRN-CNP - 03/03/2020 1:52 PM CDTProcedure(s): PROC BONE [...] Complications: None Start: 1310 Stop: 1345 Eli Sood APRN, FLAVOR MAKER-C Bone Marrow Transplant [facility] * Trey Grossman MD - 03/01/2020 10:42 [...] procedure and its findings. Camacho Samayoa MD Warp Splitter documented in this encounter Consult Notes * Yovana Lara, JHON/NIKO - 03/07/2020 3:17 PM CDTAssociated Order(s): IP [...] Pain affecting intake: No Estimated Needs: KCAL: 9172-7298 (11-14 kcal/kg) Protein (g): 135-170 (2.0-2.5 g/kg [...] stay Nutrition Goal Progress: New goal established CARLOS Burger Pager #: [phone] * Kalpesh Robison MD - 02/28/2020 7:58 AM CDT Pulmonary Medicine Consult Note Referring service: BMT Reason for referral: Pulmonary infiltrates Name: Jalil Luis, [id number] Age: [age] year old Room: 8[facility]- Date Admitted: 02/25/2020 ? Subjective: Chief complaint: [...] Start date: 1983 Last attempt to quit: 2002 Years since quittin.5 ??? Smokeless tobacco: Former [...] Labs: Recent Labs Component Name 02/27/20 2349 02/27/20 0411 02/25/20 2252 11/15/19 0911 WBC 19.0* 7.3 8.5 8.1 RBC 3.68* 4.15* 4.28* 4.09* HGB 10.7* 11.9* 12.4* 11.9* HCT 31.5* 35.4* 36.4* 35.8* MCV 85.6 85.3 85.0 87.5 MCHC 34.0 33.6 34.1 33.2 PLTCOUNT 444* 402* 464* 560* NEUTPCT 89.2* - 65.2 43.7 NEUTABS 17.0* 6.79 5.5 3.5 Recent Labs Component Name 02/27/20 2349 02/27/20 0411 02/26/20 0042 POTASSIUM 4.6* 4.5 3.9 CO2 [...] - Date/Time HERPES SIMPLEX 1+2 PCR CSF [[id number]] Lab Status: No result Specimen: Microbiology from CSF SARS-COV-2 (COVID-19) IN HOUSE [[id number]] (Normal) Collected: 02/27/20 1641 Lab Status: Final result Specimen: Microbiology from Nasopharyngeal Updated: 02/28/20 1552 COVID-19 Not detected Narrative: This Real Time RT-PCR assay was developed and its performance characteristics determined by [facility]. This test has been [...] isterminated or revoked sooner. TOXOPLASMA GONDII PCR [[id number]] Collected: 02/27/20410 Lab Status: In process Specimen: Microbiology from Blood Updated: 02/27/20 0417 CULTURE BLOOD [[id number]] Collected: 02/26/20 171 Lab Status: Preliminary result Specimen: Blood Peripheral Updated: 02/28/20 0117 Culture No growth 24 hours CULTURE BLOOD FUNGUS [[id number]] Collected: 02/26/20 170 Lab Status: Preliminary result Specimen: Blood Peripheral Updated: 02/28/20 0950 Culture Culture in progress CULTURE BLOOD AFB [[id number]] Collected: 02/26/201704 Lab Status: Preliminary result Specimen: Blood Peripheral Updated: 02/27/20 1321 Culture Culture in progress CULTURE BLOOD [[id number]] Collected: 02/26/20 170 Lab Status: Preliminary result Specimen: Blood Peripheral Updated: 02/28/20 0117 Culture No growth 24 hours CYTOMEGALOVIRUS (CMV) QUANTITATIVE PLASMA [[id number]] Collected: 02/26/20 120 Lab Status: In process Specimen: Blood Updated: 02/26/20 1230 ISA-JUAN VIRUS QUANT BLOOD STL [[id number]] Collected: 02/26/20 120 Lab Status: Final result [...] developed and its performance characteristics determined by [facility]. It has not been cleared [...] high complexity clinical laboratory testing. CULTURE URINE [[id number]] (Normal) Collected: 02/26/20 0008 Lab Status: Final result Specimen: Urine Clean Catch Updated: 02/27/20 0744 Culture Urine No growth (<100 CFU/mL) CULTURE BLOOD [[id number]] Collected: 02/25/202254 Lab Status: Preliminary result Specimen: Blood Peripheral Updated: 02/28/20 0152 Culture No growth CULTURE BLOOD [[id number]] Collected: 02/25/202251 Lab Status: Preliminary result Specimen: Blood Peripheral Updated: 02/28/20 0152 Culture No growth RESPIRATORY PATHOGEN PANEL BY PCR [[id number]] (Normal) Collected: 02/25/202236 Lab Status: Final result [...] and testing guidance. SARS-COV-2 (COVID-19) IN HOUSE [[id number]] (Normal) Collected: 02/25/202236 Lab Status: Final result Specimen: Microbiology from Nasopharyngeal Updated: 02/26/20 1619 COVID-19 Not detected Narrative: This Real Time RT-PCR assay was developed and its performance characteristics determined by [facility]. This test has been [...] M.D. Pulmonary and Critical Care Fellow, PGY-6 [facility] [employer] Division of Pulmonary, Critical Care and Sleep Medicine Pager: [phone] 02/28/2020 Associated attestation - Hipolito Marlow MD [...] Clarity UA Clear Clear, Slt Cloudy Specific [place] UA 1.031 (H) 1.005 - 1.030 pH [...] Headaches well controlled by tylenol, today is 3/8. Neuro-exam is non focal. Brain MRI done, [...] CDTAssociated Order(s): IP CONSULT TO INFECTIOUS DISEASES [facility] Infectious Diseases Consultation Patient Name: Jalil Luis 1970 Room: 808/808-01 Date of Admission: 02/25/2020 Date of Service: 02/26/2020 Primary Care Physician: Ran Nuñez MD Attending Physician: No att. 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 Patient presented to [facility] on 02/25/2020 c/o persistent fevers for [...] DEVICE (PORT OR CATHETER) Right 2018 subclavian Marital status: Children: 3 Living situation: lives with Pets: cat and dog Smoking: denies Alcohol: denies Illicit drugs/IV drug use: occasional marijuana Occupational Hx: [employer] Education Level: high school Travel Hx: none [...] T PO BID PRF PAIN 11/08/19 Yes Provider, MD Flor escitalopram (LEXAPRO) 10 MG tablet Take 1 tablet by mouth once daily 06/28/19 Yes Tiffanie Nguyen APRN-CNP multivitamin daily tablet Take 1 tablet by mouth daily with food Yes Provider, MD Flor ondansetron, disintegrating, (ZOFRAN ODT) 8 MG tablet Dissolve 1 tablet on top of tongue then swallow with saliva every 8 hours as needed for nausea or vomiting 04/19/19 Yes Provider, MD Flor oxyCODONE, immediate release, (ROXICODONE) 5 MG tablet [...] every 6 hours as needed 04/27/19 Yes Provider, MD Flor rOPINIRole (REQUIP) 0.25 MG tablet Take 1 tablet by mouth at bedtime Reasons: Restless Leg Syndrome10/29/19 Yes Asim Ramirez APRN-CNP sulfamethoxazole-trimethoprim (BACTRIM DS; SEPTRA DS) 800-160 MG tablet Take 1 tablet by mouth every Friday, Friday & Friday Reasons: PJP prophylaxis s/p stem cell transplant 11/01/19 Yes Asim Ramirez APRN-CNP Inpatient medications ??? apixaban 5 mg Oral [...] valacycolvir 02/25 - current Prior Abx at [facility] Bactrim MWF and Pen VK daily [...] 83 90 104 126 137 155* [id number] 65 74 63 70 65 125 ALT [...] malignancy raises concern for space occupying lesion (MERCHANDISE HANDLER lymphoma) or toxoplasma in setting of aSCT [...] Addendum 02/25 1630 Received call from [employer]MT [employer]IL[employer]DER. Mr Luis experienced sudden onset severe headache. [...] Attending, Dr Aguilar, and primary team: [employer] Fam Torres DO (PGY-4) Infectious Disease Fellow (Team 1) Pager [phone] Associated attestation - Luli Aguilar MD - 02/27/2020 11:00 AM CDT [facility] Infectious Diseases Attending Note Documentation Date/Time: [...] right IJ DVT 09/27/19, who presented to [facility] on 02/24/10 with c/o intermittent low [...] fungal and viral meningitis, and other pathogenic MERCHANDISE HANDLER infection. Follow CT C/A/P. Follow Covid-19. Headache, associated with photophobia and neck pain: Severe, duration ~2 weeks. Besides meningitis as discussion under #1, other occupying MERCHANDISE HANDLER infection/tumor also on differential. Recommend MRI brain [...] patient. Luli Aguilar MD Infectious Diseases Pager: [phone] documented in this encounter OR Notes * Brief Op Note - Jorge Luis Ham MD - 03/06/2020 2:24 PM CDT Brief Post-Operative Note 03/06/2020 Jalil Luis Date of Surgery: 03/06/2020 Surgeon(s) and Role: * Elkin Rosenbaum MD - Primary * Jorge Luis Ham MD - Fellow Anesthesiologist: Casandra Newton MD Aircraft Instrument Tester: Benjamin Haynes Anes Asst Pre-Op Diagnosis Codes: [...] Miscellaneous Notes * Significant Event - Monica Latif, JOSE DAVID-QUALITY PROCESS ENGINEER - 02/26/2020 5:12 PM CDT ID called [...] the cultures to now instead of at [facility] since he is febrile. Order for tylenol [...] inbetween imaging at 1718. COOPER down to 10 after tylenol and oxy. Tolerated CT. Denied vision changes currently but describes blurriness when COOPER at 10/10. No focal deficits with neuro exam. Pupils equal and reactive. Gave him full details of plan above. He is understanding ofit all. Will report off to night MIGUEL to follow CT and MRI results. Monica Latif APRN, FLAVOR MAKER-BC M [facility] Bone Marrow Transplant [phone] documented in this encounter Plan of Treatment Upcoming Encounters Date Type Department Care Team (Late st Contact Info) Description 08/26/2024 11:[address] Office Visit [facility] - Pulmonology [address] [place] [address], [place] [id number] Andrew Francis MD [address] [place] [address] 2[address] DIV OF PULMONARY/[place] [address] Scheduled Orders Name Type Priority Associated Diagnoses [...] CDT CBC W AUTO DIFFERENTIAL Routine 03/29/20 12:24 AM CDT COMPREHENSIVE METABOLIC PANEL Routine [...] CDT CBC W AUTO DIFFERENTIAL Routine 03/27/20 6:07 AM CDT COMPREHENSIVE METABOLIC PANEL Routine [...] CDT CBC W AUTO DIFFERENTIAL Routine 03/22/20 20 12:46 AM CDT COMPREHENSIVE METABOLIC PANEL Routine [...] CDT CBC W AUTO DIFFERENTIAL Routine 03/21/20 20 2:13 AM CDT B-TYPE NATRIURETIC PEPTIDE Routine [...] CDT CBC W AUTO DIFFERENTIAL Routine 03/20/20 20 8:44 AM CDT COMPREHENSIVE METABOLIC PANEL Routine [...] CBC W AUTO DIFFERENTIAL Routine 03/16/20 20 12:45 AM CDT COMPREHENSIVE METABOLIC PANEL Routine [...] CDT CBC W AUTO DIFFERENTIAL Routine 03/09/20 12:45 AM CDT PHOSPHORUS BLOOD Routine 03/09/2020 [...] CDT CBC W AUTO DIFFERENTIAL STAT 03/06/20 6:16 PM CDT COMPREHENSIVE METABOLIC PANEL STAT [...] PM CDT Fever, unspecified fever cause CYTOLOGY NON-HANDY MAN PANEL (STL) Routine 03/06/2020 3:41 PM CDT [...] large B-cell lymphoma, unspecified body region (HCC) ID DX BRONCHOSCOPE/LAVAGE 03/06/2020 1:51 PM CDT Abnormal CXR BRONCHOSCOPY Routine 03/06/2020 12:40 PM CDT CBC W AUTO DIFFERENTIAL Routine 03/05/20 11:53 PM CDT COMPREHENSIVE METABOLIC PANEL Routine [...] PM CDT VANCOMYCIN LEVEL TROUGH Timed 03/03/20 5:59 PM CDT ECHO LIMITED OR FOLLOWUP [...] CDT FERRITIN Routine 03/03/2020 12:47 PM CDT KQNS-W-EMLMYD FUNGITELL BAL/BLOOD Routine 03/03/2020 12:14 AM CDT [...] CDT CBC W AUTO DIFFERENTIAL Routine 03/01/20 20 11:52 PM CDT COMPREHENSIVE METABOLIC PANEL Routine [...] CDT CBC W AUTO DIFFERENTIAL Routine 02/29/20 11:34 PM CDT COMPREHENSIVE METABOLIC PANEL Routine 02/29/2020 11:34 PM CDT PHOSPHORUS BLOOD Routine 02/29/2020 11:3 4 PM CDT MAGNESIUM BLOOD Routine 02/29/2020 11:34 PM CDT VANCOMYCIN LEVEL TROUGH Timed 02/29/20 7:05 PM CDT CBC W AUTO DIFFERENTIAL Routine 02/29/20 12:12 AM CDT COMPREHENSIVE METABOLIC PANEL Routine 02/29/2020 12:12 AM CDT PHOSPHORUS BLOOD Routine 02/29/2020 12:1 2 AM CDT MAGNESIUM BLOOD Routine 02/29/2020 12:12 AM CDT VANCOMYCIN LEVEL TROUGH Timed 02/28/20 5:56 AM CDT ASPERGILLUS GALACTOMANNAN AG BAL/BLOOD Routine 02/28/2020 5:55 AM CDT Fever, unspecified fever cause PT-INR [facility] Routine 02/27/2020 11:49 PM CDT Diffuse large [...] AM CDT Fever, unspecified fever cause PT-INR [facility] Routine 02/27/2020 4:11 AM CDT BARTONELLA HENSELAE [...] Estimate Adequate Adequate 020 2:07 AM CDT [facility] Polychromasia 1+(A) None 04/05/2020 2:07 AM CDT [facility] Blank-Evening Shade Bodies 1+(A) None 04/05/2020 2:07 AM CDT [facility] Target Cells 1+(A) None 04/05/2020 2:07 AM CDT [facility] Ovalocytes 1+(A) None 04/05/2020 2:07 AM CDT [facility] Blood BLOOD SPECIMEN / Unknown Lab Venipuncture / Unknown 04/05/2020 12:04 AM CDT 04/05/2020 12:34 AM CDT Asim Giovanna James BURN TABLE OPERATOR-QUALITY PROCESS ENGINEER LAB - HEMATOLOGY ORDERABLES Performing Organization Address City/[facility]/ZIP Co de Phone Number [address] [address], [facility] [phone] * (ABNORMAL) ERYTHROCYTE SEDIMENTATION RATE (04/05/2020 12:04 AM CDT) Erythrocyte Sedimentation Rate Westergren 82(H) 0 - 15 MM/HR 04/05/2020 1:07 AM T [facility] Blood BLOOD SPECIMEN / Unknown Lab Venipuncture / Unknown 04/05/2020 12:04 AM CDT 04/05/2020 12:34 AM CDT Asim Giovanna James BURN TABLE OPERATOR-[facility] LAB - HEMATOLOGY ORDERABLES Performing Organization Address City/[facility]/ZIP Co de Phone Number [address] [address], [facility] [phone] * (ABNORMAL) CBC W AUTO DIFFERENTIAL (04/05/2020 12:04 AM CDT) WBC 10.4 3.5 - 10.5 10? 3 /uL 04/05/2020 12:46 AM [facility] Comment:The WBC count is cor rected by the instrument for nRBC's RBC 3.27(L) 4.30 - 5.70 10? 6 /uL 04/05/2020 12:46 AM [facility] Hemoglobin 9.6(L) 13.5 - 17.5 g/dL 04/05/2020 12:46 AM [facility] Hematocrit 30.1(L) 39.0 - 50.0 % 04/05/2020 12:46 AM [facility] MCV 92.0 81.0 - 97.0 fL 04/05/2020 12:46 AM [facility] MCH 29.4 28.0 - 34.0 pg 04/05/2020 12:46 AM [facility] MCHC 31.9(L) 32.0 - 36.0 g/dL 04/05/2020 12:46 AM [facility] Platelet Count 275 150 - 400 10? 3 /uL 04/05/2020 12:46 AM [facility] RDW-SD 79.8(H) 36.0 - 50.0 fL 04/05/2020 12:46 AM [facility] RDW-CV 24.3(H) 11.2 - 14.8 % 04/05/2020 12:46 AM [facility] MPV 12.9(H) 9.3 - 12.8 fL 04/05/2020 12:46 AM [facility] nRBC Absolute 0.50(H) 0 10? 3 /uL 04/05/2020 12:46 AM [facility] nRBC Auto 4.8(H) 0 /100 WBC 04/05/2020 12:46 AM [facility] Neutrophils % 70.6(H) 35.0 - 70.0 % 04/05/2020 12:46 AM [facility] Lymphocytes % 13.7(L) 19.7 - 55.1 % 04/05/2020 12:46 AM [facility] Monocytes % 9.1 3.0 - 15.0 % 04/05/2020 12:46 AM [facility] Eosinophils % 2.8 0.0 - 6.0 % 04/05/2020 12:46 AM [facility] Basophil % 0.5 0.0 - 1.5 % 04/05/2020 12:46 AM [facility] Neutrophils Absolute 7.4(H) 1.6 - 7.0 10? 3 /uL 04/05/2020 12:46 AM [facility] Lymphocyte Absolute 1.4 0.8 - 2.9 10? 3 /uL 04/05/2020 12:46 AM CDT [facility] Monocytes Absolute 0.95(H) 0.14 - 0.66 10? 3 /uL 04/05/2020 12:46 AM CDT [facility] Eosinophils Absolute 0.29 0.00 - 0.45 10? 3 /uL 04/05/2020 12:46 AM CDT [facility] Basophils Absolute 0.05 0.00 - 0.06 10? 3 /uL 04/05/2020 12:46 AM CDT [facility] Immature Granulocytes % 3.3(H) 0.0 - 1.0 % 04/05/2020 12:46 AM CDT [facility] Blood BLOOD SPECIMEN / Unknown Lab Venipuncture / Unknown 04/05/2020 12:04 AM CDT 04/05/2020 12:34 AM CDT [facility]im Ramirez [facility] LAB - HEMATOLOGY ORDERABLES Performing Organization Address City/[facility]/ZIP Co de Phone Number [address] [address], [facility] [phone] * PHOSPHORUS BLOOD (04/05/2020 12:03 AM CDT) Phosphorus 3.5 2.3 - 4.7 mg/dL 04/05/2020 12:41 AM CDT [facility] Blood BLOOD SPECIMEN / Unknown Lab Venipuncture / Unknown 04/05/2020 12:03 AM CDT 04/05/2020 12:14 AM CDT [facility]im [facility] LAB - CHEMISTRY ORDERABLES [address] [address], [facility] [phone] * MAGNESIUM BLOOD (04/05/2020 12:03 AM CDT) Magnesium 1.9 1.6 - 2.6 mg/dL 04/05/2020 12:41 AM CDT [facility] Blood BLOOD SPECIMEN / Unknown Lab Venipuncture / Unknown 04/05/2020 12:03 AM CDT 04/05/2020 12:14 AM CDT Asim Giovanna James BURN TABLE OPERATOR-QUALITY PROCESS ENGINEER LAB - CHEMISTRY ORDERABLES Performing Organization Address [facility] Co de Phone Number [address] [address], [facility] [phone] * (ABNORMAL) LDH BLOOD (04/05/2020 12:03 AM CDT) [facility] LDH Total 349(H) 125 - 243 Units/L 04/05/2020 12:41 AM CDT [facility] Blood BLOOD SPECIMEN / Unknown Lab Venipuncture / Unknown 04/05/2020 12:03 AM CDT 04/05/2020 12:14 AM CDT Asim Giovanna James BURN TABLE OPERATOR-QUALITY PROCESS ENGINEER LAB - CHEMISTRY ORDERABLES Performing Organization Address [facility] Co de Phone Number [address] [address], [facility] [phone] * (ABNORMAL) FERRITIN (04/05/2020 12:03 AM CDT) [facility] Ferritin 451(H) 22 - 275 ng/mL 04/05/2020 2:45 AM CDT [facility] Blood BLOOD SPECIMEN / Unknown Lab Venipuncture / Unknown 04/05/2020 12:03 AM CDT 04/05/2020 1:13 AM CDT Asim Giovanna James BURN TABLE [facility] LAB - CHEMISTRY ORDERABLES Performing Organization Address [facility]/ZIP Co de Phone Number [address] [address], [facility] [phone] * (ABNORMAL) D-DIMER (04/05/2020 12:03 AM CDT) [facility] D-Dimer Quantitative 0.52(H) <=0.50 mcg/mL FEU 04/05/2020 1:11 AM CDT [facility] Comment: In the absence of clinical [...] CDT 04/05/2020 12:57 AM CDT Asim Ramirez BURN TABLE OPERATOR-QUALITY PROCESS ENGINEER LAB - COAGULATIO N ORDERABLES Performing Organization Address [facility]/State/[facility] Co de Phone Number [facility] [address] [place] [phone], [facility] [phone] * (ABNORMAL) COMPREHENSIVE METABOLIC PANEL (04/05/2020 12:03 AM CDT) BUN 18 7 - 26 mg/dL 04/05/2020 12:41 AM CDT [facility] Creatinine 0.8 0.6 - 1.2 mg/dL 04/05/2020 12:41 AM CDT [facility] Sodium 139 136 - 145 mmol/L 04/05/2020 12:41 AM CDT [facility] Potassium 3.8 3.5 - 4.5 mmol/L 04/05/2020 12:41 AM CDT [facility] Chloride 102 98 - 107 mmol/L 04/05/2020 12:41 AM [facility] CO2 31(H) 22 - 29 mmol/L 04/05/2020 12:41 AM [facility] Glucose 120(H) 70 - 115 mg/dL 04/05/2020 12:41 AM [facility] Calcium 8.8 8.4 - 10.2 mg/dL 04/05/2020 12:41 AM [facility] Protein Total 6.1 6.0 - 8.3 g/dL 04/05/2020 12:41 AM [facility] Albumin 2.4(L) 3.4 - 5.0 g/dL 04/05/2020 12:41 AM [facility] Bilirubin Total 0.2 0.2 - 1.2 mg/dL 04/05/2020 12:41 AM [facility] Alkaline Phosphatase 104 40 - 150 Units/L 04/05/2020 12:41 AM [facility] ALT 44 0 - 55 Units/L 04/05/2020 12:41 AM [facility] AST 18 5 - 34 Units/L 04/05/2020 12:41 AM [facility] Anion Gap 10 8 - 18 04/05/2020 12:41 AM [facility] BUN/Creatinine Ratio 23 7 - 23 04/05/2020 12:41 AM [facility] Osmolality Calculated 291 270 - 300 mOsm/kg 04/05/2020 12:41 AM [facility] Albumin/Globulin Ratio 0.6(L) 1.1 - 2.3 04/05/2020 12:41 AM [facility] eGFR >60 >60 mL/min/1.7 3 m2 04/05/2020 12:41 AM [facility] Blood BLOOD SPECIMEN / Unknown Lab Venipuncture / Unknown 04/05/2020 12:03 AM T 04/05/2020 12:14 AM [facility] Asim Ramirez BURN TABLE OPERATOR-QUALITY PROCESS ENGINEER LAB - CHEMISTRY ORDERABLES [facility] [address] [place] [address], [facility] [phone] * (ABNORMAL) C-REACTIVE PROTEIN (04/05/2020 12:03 AM CDT) C-Reactive Protein 2.5(H) <=0.5 mg/dL 04/05/2020 2:25 AM CDT [facility] Blood BLOOD SPECIMEN / Unknown Lab Venipuncture / Unknown 04/05/2020 12:03 AM CDT 04/05/2020 1:13 AM CDT Asim Ramirez BURN TABLE OPERATOR-QUALITY PROCESS ENGINEER LAB - CHEMISTRY ORDERABLES [facility] [address] [place] [address], [place] [phone] * (ABNORMAL) RBC MORPHOLOGY (04/03/2020 5:33 AM CDT) Pathologist [facility] Platelet Estimate Adequate Adequate 020 11:35 AM CDT [facility] Anisocytosis 1+(A) None 04/03/2020 11:35 AM CDT [facility] Microcytes 1+(A) None 04/03/2020 11:35 AM CDT [facility] Macrocytosis Occasional( A) None 04/03/2020 11:35 AM CDT [facility] Polychromasia 1+(A) None 04/03/2020 11:35 AM CDT [facility] Target Cells 1+(A) None 04/03/2020 11:35 AM CDT [facility] Ovalocytes 1+(A) None 04/03/2020 11:35 AM CDT [facility] Large Platelet Count 1+(A) None 04/03/2020 11:35 AM CDT [facility] Blood BLOOD SPECIMEN / Unknown Lab Venipuncture / Unknown 04/03/2020 5:33 AM CDT 04/03/2020 6:56 AM CDT Asim Ramirez BURN TABLE OPERATOR-QUALITY PROCESS ENGINEER LAB - HEMATOLOGY ORDERABLES [facility] [address] [place] [address], [place] [phone] * PHOSPHORUS BLOOD (04/03/2020 5:33 AM CDT) Phosphorus 4.6 2.3 - 4.7 mg/dL 04/03/2020 7:15 AM CDT [facility] Blood BLOOD SPECIMEN / Unknown Lab Venipuncture / Unknown 04/03/2020 5:33 AM CDT 04/03/2020 7:15 AM CDT Asim Ramirez BURN TABLE OPERATOR-QUALITY PROCESS ENGINEER LAB - CHEMISTRY ORDERABLES [address] [address], [place] [phone] * MAGNESIUM BLOOD (04/03/2020 5:33 AM CDT) Pathologist [facility] Magnesium 1.9 1.6 - 2.6 mg/dL 04/03/2020 7:15 AM CDT [facility] Blood BLOOD SPECIMEN / Unknown Lab Venipuncture / Unknown 04/03/2020 5:33 AM CDT 04/03/2020 7:15 AM CDT Asim Ramirez BURN TABLE OPERATOR-QUALITY PROCESS ENGINEER LAB - CHEMISTRY ORDERABLES Performing Organization Address [facility]/ZIP Co de Phone Number [address] [address], [place] [phone] * (ABNORMAL) LDH BLOOD (04/03/2020 5:33 AM CDT) [facility] LDH Total 372(H) 125 - 243 Units/L 04/03/2020 7:15 AM CDT [facility] Blood BLOOD SPECIMEN / Unknown Lab Venipuncture / Unknown 04/03/2020 5:33 AM CDT 04/03/2020 7:15 AM CDT Asim Ramirez BURN TABLE OPERATOR-QUALITY PROCESS ENGINEER LAB - CHEMISTRY ORDERABLES Performing Organization Address City/[facility]/ZIP Co de Phone Number [address] [address], [place] [phone] * (ABNORMAL) FERRITIN (04/03/2020 5:33 AM CDT) Ferritin 467(H) 22 - 275 ng/mL 04/03/2020 8:18 AM CDT [facility] Blood BLOOD SPECIMEN / Unknown Lab Venipuncture / Unknown 04/03/2020 5:33 AM CDT 04/03/2020 6:39 AM CDT Asim Ramirez [facility] LAB - CHEMISTRY ORDERABLES Performing Organization Address [facility]/ZIP Co de Phone Number [address] [address], [facility] [phone] * (ABNORMAL) ERYTHROCYTE SEDIMENTATION RATE (04/03/2020 5:33 AM CDT) Pathologist [facility] Erythrocyte Sedimentation Rate Westergren 88(H) 0 - 15 MM/HR 04/03/2020 8:07 AM CDT [facility] Blood BLOOD SPECIMEN / Unknown Lab Venipuncture / Unknown 04/03/2020 5:33 AM CDT 04/03/2020 6:56 AM CDT Asim Ramirez APRN-[facility] LAB - HEMATOLOGY ORDERABLES Performing Organization Address [facility] Co de Phone Number [address] [address], [facility] [phone] * (ABNORMAL) D-DIMER (04/03/2020 5:33 AM CDT) D-Dimer Quantitative 0.70(H) <=0.50 mcg/mL FEU 04/03/2020 6:57 AM CDT [facility] Comment: In the absence of clinical [...] CDT 04/03/2020 6:45 AM CDT Asim Ramirez BURN TABLE OPERATOR-QUALITY PROCESS ENGINEER LAB - COAGULATIO N ORDERABLES Performing Organization Address City/[facility] Co de Phone Number [facility] [address] [place] [phone], [facility] [phone] * (ABNORMAL) COMPREHENSIVE METABOLIC PANEL (04/03/2020 5:33 AM CDT) BUN 18 7 - 26 mg/dL 04/03/2020 7:15 AM [facility] Creatinine 0.8 0.6 - 1.2 mg/dL 04/03/2020 7:15 AM [facility] Sodium 141 136 - 145 mmol/L 04/03/2020 7:15 AM [facility] Potassium 4.0 3.5 - 4.5 mmol/L 04/03/2020 7:15 AM [facility] Chloride 100 98 - 107 mmol/L 04/03/2020 7:15 AM [facility] CO2 32(H) 22 - 29 mmol/L 04/03/2020 7:15 AM [facility] Glucose 78 70 - 115 mg/dL 04/03/2020 7:15 AM [facility] Calcium 9.4 8.4 - 10.2 mg/dL 04/03/2020 7:15 AM [facility] Protein Total 5.7(L) 6.0 - 8.3 g/dL 04/03/2020 7:15 AM [facility] Albumin 2.6(L) 3.4 - 5.0 g/dL 04/03/2020 7:15 AM [facility] Bilirubin Total 0.3 0.2 - 1.2 mg/dL 04/03/2020 7:15 AM [facility] Alkaline Phosphatase 105 40 - 150 Units/L 04/03/2020 7:15 AM [facility] ALT 51 0 - 55 Units/L 04/03/2020 7:15 AM [facility] AST 16 5 - 34 Units/L 04/03/2020 7:15 AM [facility] Anion Gap 13 8 - 18 04/03/2020 7:15 AM [facility] BUN/Creatinine Ratio 23 7 - 23 04/03/2020 7:15 AM [facility] Osmolality Calculated 293 270 - 300 mOsm/kg 04/03/2020 7:15 AM [facility] Albumin/Globulin Ratio 0.8(L) 1.1 - 2.3 04/03/2020 7:15 AM [facility] eGFR >60 >60 mL/min/1.7 3 m2 04/03/2020 7:15 AM [facility] Blood BLOOD SPECIMEN / Unknown Lab Venipuncture / Unknown 04/03/2020 5:33 AM CDT 04/03/2020 7:15 AM [facility] Asim Ramirez BURN TABLE OPERATOR-QUALITY PROCESS ENGINEER LAB - CHEMISTRY ORDERABLES Performing Organization Address City/State/[facility] Co de Phone Number [facility] [address] [place] [address], [facility] [phone] * (ABNORMAL) CBC W AUTO DIFFERENTIAL (04/03/2020 5:33 AM CDT) WBC 11.4(H) 3.5 - 10.5 10? 3 /uL 04/03/2020 7:41 AM [facility] Comment:The WBC count is cor rected by the instrument for nRBC's RBC 3.54(L) 4.30 - 5.70 10? 6 /uL 04/03/2020 7:41 AM [facility] Hemoglobin 10.5(L) 13.5 - 17.5 g/dL 04/03/2020 7:41 AM [facility] Hematocrit 32.5(L) 39.0 - 50.0 % 04/03/2020 7:41 AM [facility] MCV 91.8 81.0 - 97.0 fL 04/03/2020 7:41 AM [facility] MCH 29.7 28.0 - 34.0 pg 04/03/2020 7:41 AM [facility] MCHC 32.3 32.0 - 36.0 g/dL 04/03/2020 7:41 AM [facility] Platelet Count 276 150 - 400 10? 3 /uL 04/03/2020 7:41 AM [facility] RDW-SD 79.7(H) 36.0 - 50.0 fL 04/03/2020 7:41 AM [facility] RDW-CV 24.4(H) 11.2 - 14.8 % 04/03/2020 7:41 AM [facility] MPV 12.3 9.3 - 12.8 fL 04/03/2020 7:41 AM [facility] nRBC Absolute 0.52(H) 0 10? 3 /uL 04/03/2020 7:41 AM [facility] nRBC Auto 4.5(H) 0 /100 WBC 04/03/2020 7:41 AM [facility] Neutrophils % 72.3(H) 35.0 - 70.0 % 04/03/2020 7:41 AM [facility] Lymphocytes % 13.7(L) 19.7 - 55.1 % 04/03/2020 7:41 AM [facility] Monocytes % 8.9 3.0 - 15.0 % 04/03/2020 7:41 AM [facility] Eosinophils % 2.0 0.0 - 6.0 % 04/03/2020 7:41 AM [facility] Basophil % 0.5 0.0 - 1.5 % 04/03/2020 7:41 AM [facility] Neutrophils Absolute 8.3(H) 1.6 - 7.0 10? 3 /uL 04/03/2020 7:41 AM CDT [facility] Lymphocyte Absolute 1.6 0.8 - 2.9 10? 3 /uL 04/03/2020 7:41 AM T [facility] Monocytes Absolute 1.02(H) 0.14 - 0.66 10? 3 /uL 04/03/2020 7:41 AM T [facility] Eosinophils Absolute 0.23 0.00 - 0.45 10? 3 /uL 04/03/2020 7:41 AM T [facility] Basophils Absolute 0.06 0.00 - 0.06 10? 3 /uL 04/03/2020 7:41 AM [facility] Immature Granulocytes % 2.6(H) 0.0 - 1.0 % 04/03/2020 7:41 AM [facility] Blood BLOOD SPECIMEN / Unknown Lab Venipuncture / Unknown 04/03/2020 5:33 AM CDT 04/03/2020 6:56 AM CDT [facility] [address] [address], [facility] [phone] * (ABNORMAL) C-REACTIVE PROTEIN (04/03/2020 5:33 AM CDT) [facility] [facility] C-Reactive Protein 1.7(H) <=0.5 mg/dL 04/03/2020 8:18 AM CDT [facility] Blood BLOOD SPECIMEN / Unknown Lab Venipuncture / Unknown 04/03/2020 5:33 AM CDT 04/03/2020 6:39 AM CDT Asim Ramirez [facility] - CHEMISTRY ORDERABLES [address] [address], [facility] [phone] * (ABNORMAL) IGG BLOOD (04/03/2020 5:33 AM CDT) IgG 340(L) 540-1,822 mg/dL 04/03/2020 8:25 AM CDT [facility] Blood BLOOD SPECIMEN / Unknown Lab Venipuncture / Unknown 04/03/2020 5:33 AM CDT 04/03/2020 6:39 AM CDT Asim Ramirez BURN TABLE OPERATOR[facility]ENTRAL [facility]PITAL LAB - CHEMISTRY ORDERABLES Performing Organization Address City/[facility]/ZIP Co de Phone Number [address] [address], [facility] [phone] * PHOSPHORUS BLOOD (03/31/2020 12:40 AM CDT) Phosphorus 4.0 2.3 - 4.7 mg/dL 03/31/2020 1:17 AM CDT [facility] Blood BLOOD SPECIMEN / Unknown Lab Venipuncture / Unknown 03/31/2020 12:40 AM CDT 03/31/2020 12:50 AM CDT Asim Giovanna James [facility] - CHEMISTRY ORDERABLES Performing Organization Address [facility]/ZIP Co de Phone Number [address] [address], [facility] [phone] * MAGNESIUM BLOOD (03/31/2020 12:40 AM CDT) Magnesium 1.9 1.6 - 2.6 mg/dL 03/31/2020 1:19 AM CDT [facility] Blood BLOOD SPECIMEN / Unknown Lab Venipuncture / Unknown 03/31/2020 12:40 AM CDT 03/31/2020 12:50 AM CDT Asim Ramirez BURN TABLE [facility] LAB - CHEMISTRY ORDERABLES Performing Organization Address [facility]/ZIP Co de Phone Number [address] [address], [facility] [phone] * (ABNORMAL) LDH BLOOD (03/31/2020 12:40 AM CDT) LDH Total 450(H) 125 - 243 Units/L 03/31/2020 1:18 AM [facility] Blood BLOOD SPECIMEN / Unknown Lab Venipuncture / Unknown 03/31/2020 12:40 AM CDT 03/31/2020 12:50 AM CDT Asim Ramirez BURN TABLE OPERATOR-QUALITY PROCESS ENGINEER LAB - CHEMISTRY ORDERABLES Performing Organization Address City/State/[facility] Co de Phone Number [facility] [address] [place] [address], [facility] [phone] * (ABNORMAL) COMPREHENSIVE METABOLIC PANEL (03/31/2020 12:40 AM CDT) BUN 21 7 - 26 mg/dL 03/31/2020 1:20 AM [facility] Creatinine 0.9 0.6 - 1.2 mg/dL 03/31/2020 1:20 AM [facility] Sodium 143 136 - 145 mmol/L 03/31/2020 1:20 AM [facility] Potassium 4.2 3.5 - 4.5 mmol/L 03/31/2020 1:20 AM [facility] Chloride 102 98 - 107 mmol/L 03/31/2020 1:20 AM [facility] CO2 28 22 - 29 mmol/L 03/31/2020 1:20 AM [facility] Glucose 109 70 - 115 mg/dL 03/31/2020 1:20 AM [facility] Calcium 8.6 8.4 - 10.2 mg/dL 03/31/2020 1:20 AM [facility] Protein Total 5.6(L) 6.0 - 8.3 g/dL 03/31/2020 1:20 AM [facility] Albumin 2.5(L) 3.4 - 5.0 g/dL 03/31/2020 1:20 AM [facility] Bilirubin Total 0.2 0.2 - 1.2 mg/dL 03/31/2020 1:20 AM [facility] Alkaline Phosphatase 103 40 - 150 Units/L 03/31/2020 1:20 AM [facility] ALT 56(H) 0 - 55 Units/L 03/31/2020 1:20 AM [facility] AST 22 5 - 34 Units/L 03/31/2020 1:20 AM [facility] Anion Gap 17 8 - 18 03/31/2020 1:20 AM [facility] BUN/Creatinine Ratio 23 7 - 23 03/31/2020 1:20 AM [facility] Osmolality Calculated 300 270 - 300 mOsm/kg 03/31/2020 1:20 AM [facility] Albumin/Globulin Ratio 0.8(L) 1.1 - 2.3 03/31/2020 1:20 AM [facility] eGFR >60 >60 mL/min/1.7 3 m2 03/31/2020 1:20 AM [facility] Blood BLOOD SPECIMEN / Unknown Lab Venipuncture / Unknown 03/31/2020 12:40 AM CDT 03/31/2020 12:50 AM CDT Asim Ramirez BURN TABLE OPERATOR-QUALITY PROCESS ENGINEER LAB - CHEMISTRY ORDERABLES Performing Organization Address [facility] Co de Phone Number [facility] [address] [place] [address], [facility] [phone] * D-DIMER (03/31/2020 12:37 AM CDT) D-Dimer Quantitative 0.27 <=0.50 mcg/mL FEU 03/31/2020 12:49 AM [facility] Comment: In the absence of [...] = Non applicable Reference: Br. J. Haematol. 145:24-33,2008. Blood BLOOD SPECIMEN / Unknown Lab Venipuncture / Unknown 03/31/2020 12:37 AM CDT 03/31/2020 12:37 AM CDT Asim Ramirez [facility] LAB - COAGULATIO N ORDERABLES [address] [address], [facility] [phone] * (ABNORMAL) RBC MORPHOLOGY (03/31/2020 12:20 AM CDT) Anisocytosis 1+(A) None 03/31/2020 2:51 AM CDT [facility] Polychromasia Occasional (A) None 03/31/2020 2:51 AM CDT [facility] Target Cells 1+(A) None 03/31/2020 2:51 AM CDT [facility] Schistocytes Occasional (A) None 03/31/2020 2:51 AM CDT [facility] Blood BLOOD SPECIMEN / Unknown 03/31/2020 12:20 AM CDT 03/31/2020 12:26 AM CDT Asim Ramirez [facility] - HEMATOLOGY ORDERABLES Performing Organization Address [facility]/ZIP Co de Phone Number [address] [address], [facility] [phone] * (ABNORMAL) ERYTHROCYTE SEDIMENTATION RATE (03/31/2020 12:20 AM CDT) Erythrocyte Sedimentation Rate Westergren 77(H) 0 - 15 MM/HR 03/31/2020 12:41 AM CDT [facility] Blood BLOOD SPECIMEN / Unknown 03/31/2020 12:20 AM CDT 03/31/2020 12:26 AM CDT Asim MIMS LAB - HEMATOLOGY ORDERABLES [facility] [address] [place] [address], [facility] [phone] * (ABNORMAL) CBC W AUTO DIFFERENTIAL (03/31/2020 12:20 AM CDT) WBC 12.1(H) 3.5 - 10.5 10? 3 /uL 03/31/2020 12:27 AM [facility] Comment:The WBC count is cor rected by the instrument for nRBC's RBC 3.44(L) 4.30 - 5.70 10? 6 /uL 03/31/2020 12:27 AM [facility] Hemoglobin 10.2(L) 13.5 - 17.5 g/dL 03/31/2020 12:27 AM [facility] Hematocrit 30.7(L) 39.0 - 50.0 % 03/31/2020 12:27 AM [facility] MCV 89.2 81.0 - 97.0 fL 03/31/2020 12:27 AM [facility] MCH 29.7 28.0 - 34.0 pg 03/31/2020 12:27 AM [facility] MCHC 33.2 32.0 - 36.0 g/dL 03/31/2020 12:27 AM [facility] Platelet Count 238 150 - 400 10? 3 /uL 03/31/2020 12:27 AM [facility] RDW-SD 75.8(H) 36.0 - 50.0 fL 03/31/2020 12:27 AM [facility] RDW-CV 24.3(H) 11.2 - 14.8 % 03/31/2020 12:27 AM [facility] MPV 12.5 9.3 - 12.8 fL 03/31/2020 12:27 AM [facility] nRBC Absolute 0.79(H) 0 10? 3 /uL 03/31/2020 12:27 AM [facility] nRBC Auto 6.5(H) 0 /100 WBC 03/31/2020 12:27 AM [facility] Neutrophils % 76.3(H) 35.0 - 70.0 % 03/31/2020 12:27 AM [facility] Lymphocytes % 15.0(L) 19.7 - 55.1 % 03/31/2020 12:27 AM [facility] Monocytes % 5.3 3.0 - 15.0 % 03/31/2020 12:27 AM [facility] Eosinophils % 1.1 0.0 - 6.0 % 03/31/2020 12:27 AM [facility] Basophil % 0.3 0.0 - 1.5 % 03/31/2020 12:27 AM [facility] Neutrophils Absolute 9.2(H) 1.6 - 7.0 10? 3 /uL 03/31/2020 12:27 AM [facility] Lymphocyte Absolute 1.8 0.8 - 2.9 10? 3 /uL 03/31/2020 12:27 AM [facility] Monocytes Absolute 0.64 0.14 - 0.66 10? 3 /uL 03/31/2020 12:27 AM [facility] Eosinophils Absolute 0.13 0.00 - 0.45 10? 3 /uL 03/31/2020 12:27 AM [facility] Basophils Absolute 0.04 0.00 - 0.06 10? 3 /uL 03/31/2020 12:27 AM [facility] Immature Granulocytes % 2.0(H) 0.0 - 1.0 % 03/31/2020 12:27 AM [facility] Blood BLOOD SPECIMEN / Unknown 03/31/2020 12:20 AM CDT 03/31/2020 12:26 AM T Asim Ramirez BURN TABLE OPERATOR-QUALITY PROCESS ENGINEER LAB - HEMATOLOGY ORDERABLES [facility] [address] [place] [address], [facility] [phone] * (ABNORMAL) FERRITIN (03/31/2020 12:00 AM CDT) Ferritin 518(H) 22 - 275 ng/mL 03/31/2020 2:06 AM CDT [facility] Blood BLOOD SPECIMEN / Unknown Lab Venipuncture / Unknown 03/31/2020 03/31/2020 1:18 AM CDT Asim Singletonst BURN TABLE OPERATOR-QUALITY PROCESS ENGINEER LAB - CHEMISTRY ORDERABLES [address] [address], [facility] [phone] * (ABNORMAL) C-REACTIVE PROTEIN (03/31/2020 12:00 AM CDT) Pathologist [facility] C-Reactive Protein 2.9(H) <=0.5 mg/dL 03/31/2020 2:02 AM CDT [facility] Blood BLOOD SPECIMEN / Unknown Lab Venipuncture / Unknown 03/31/2020 03/31/2020 1:18 AM CDT Asim Heredia James BURN TABLE OPERATOR-QUALITY PROCESS ENGINEER LAB - CHEMISTRY ORDERABLES Performing Organization Address City/[facility]/ZIP Co de Phone Number [address] [address], [facility] [phone] * (ABNORMAL) SARS-COV-2 (COVID-19) IN HOUSE (03/29/2020 9:15 PM CDT) Pathologist [facility] COVID-19 PCR Detected( AA) Not detected, Invalid 03/30/2020 9:42 AM CDT [facility] Microbiology SPECIMEN FROM NASOPHARYNGEAL STRUCTURE / Unknown Collection / Unknown 03/29/2020 9:15 PM CDT 03/29/2020 9:21 PM CDT Narrative [facility] - 03/30/2020 9:42 AM CDT This nucleic acid amplification assay performance was validated by [facility]. This test has been [...] is terminated or revoked sooner. Keli Case BURN TABLE OPERATOR-QUALITY PROCESS ENGINEER LAB - MICROBIOLOG Y ORDERABLES [facility] [address] [place] [address], [facility] [phone] * (ABNORMAL) RBC MORPHOLOGY (03/29/2020 12:24 AM CDT) Anisocytosis 1+(A) None 03/29/2020 2:08 AM CDT [facility] Microcytes Occasional (A) None 03/29/2020 2:08 AM CDT [facility] Macrocytosis 1+(A) None 03/29/2020 2:08 AM CDT [facility] Polychromasia 1+(A) None 03/29/2020 2:08 AM CDT [facility] Target Cells 1+(A) None 03/29/2020 2:08 AM CDT [facility] Blood BLOOD SPECIMEN / Unknown Lab Venipuncture / Unknown 03/29/2020 12:24 AM CDT 03/29/2020 12:35 AM CDT Asim Ramirez BURN TABLE OPERATOR-QUALITY PROCESS ENGINEER LAB - HEMATOLOGY ORDERABLES [facility] [address] [place] [address], [facility] [phone] * PHOSPHORUS BLOOD (03/29/2020 12:24 AM CDT) Phosphorus 4.4 2.3 - 4.7 mg/dL 03/29/2020 12:58 AM CDT [facility] Blood BLOOD SPECIMEN / Unknown Lab Venipuncture / Unknown 03/29/2020 12:24 AM CDT 03/29/2020 12:35 AM CDT Asim Giovanna James BURN TABLE OPERATOR-QUALITY PROCESS ENGINEER LAB - CHEMISTRY ORDERABLES [address] [address], [facility] [phone] * MAGNESIUM BLOOD (03/29/2020 12:24 AM CDT) Magnesium 2.0 1.6 - 2.6 mg/dL 03/29/2020 12:58 AM CDT [facility] Blood BLOOD SPECIMEN / Unknown Lab Venipuncture / Unknown 03/29/2020 12:24 AM CDT 03/29/2020 12:35 AM CDT Asim Giovanna James BULLARDN-QUALITY PROCESS ENGINEER LAB - CHEMISTRY ORDERABLES [address] [address], [facility] [phone] * (ABNORMAL) LDH BLOOD (03/29/2020 12:24 AM CDT) LDH Total 428(H) 125 - 243 Units/L 03/29/2020 12:58 AM CDT [facility] Blood BLOOD SPECIMEN / Unknown Lab Venipuncture / Unknown 03/29/2020 12:24 AM CDT 03/29/2020 12:35 AM CDT Asim Giovanna James BURN TABLE OPERATOR-QUALITY PROCESS ENGINEER LAB - CHEMISTRY ORDERABLES [address] [address], [facility] [phone] * (ABNORMAL) FERRITIN (03/29/2020 12:24 AM CDT) Ferritin 626(H) 22 - 275 ng/mL 03/29/2020 1:23 AM CDT [facility] Blood BLOOD SPECIMEN / Unknown Lab Venipuncture / Unknown 03/29/2020 12:24 AM CDT 03/29/2020 12:35 AM CDT As[facility] Ramirez [facility] LAB - CHEMISTRY ORDERABLES Performing Organization Address [facility]/ZIP Co de Phone Number [address] [address], [facility] [phone] * (ABNORMAL) ERYTHROCYTE SEDIMENTATION RATE (03/29/2020 12:24 AM CDT) Pathologist [facility] Erythrocyte Sedimentation Rate Westergren 74(H) 0 - 15 MM/HR 03/29/2020 1:00 AM CDT [facility] Blood BLOOD SPECIMEN / Unknown Lab Venipuncture / Unknown 03/29/2020 12:24 AM CDT 03/29/2020 12:35 AM CDT Asim Ramirez [facility] - HEMATOLOGY ORDERABLES Performing Organization Address [facility] de Phone Number [address] [address], [place] [phone] * (ABNORMAL) D-DIMER (03/29/2020 12:24 AM CDT) [facility] D-Dimer Quantitative 0.57(H) <=0.50 mcg/mL FEU 03/29/2020 12:58 AM CDT [facility] Comment: In the absence of clinical [...] CDT 03/29/2020 12:35 AM CDT Asim Ramirez BURN TABLE OPERATOR-QUALITY PROCESS ENGINEER LAB - COAGULATIO N ORDERABLES [address] [address], [facility] [phone] * (ABNORMAL) COMPREHENSIVE METABOLIC PANEL (03/29/2020 12:24 AM CDT) BUN 19 7 - 26 mg/dL 03/29/2020 12:58 AM [facility] Creatinine 0.8 0.6 - 1.2 mg/dL 03/29/2020 12:58 AM [facility] Sodium 141 136 - 145 mmol/L 03/29/2020 12:58 AM [facility] Potassium 4.4 3.5 - 4.5 mmol/L 03/29/2020 12:58 AM [facility] Chloride 99 98 - 107 mmol/L 03/29/2020 12:58 AM [facility] CO2 30(H) 22 - 29 mmol/L 03/29/2020 12:58 AM [facility] Glucose 108 70 - 115 mg/dL 03/29/2020 12:58 AM [facility] Calcium 8.6 8.4 - 10.2 mg/dL 03/29/2020 12:58 AM [facility] Protein Total 5.8(L) 6.0 - 8.3 g/dL 03/29/2020 12:58 AM [facility] Albumin 2.6(L) 3.4 - 5.0 g/dL 03/29/2020 12:58 AM [facility] Bilirubin Total 0.2 0.2 - 1.2 mg/dL 03/29/2020 12:58 AM [facility] Alkaline Phosphatase 103 40 - 150 Units/L 03/29/2020 12:58 AM [facility] ALT 74(H) 0 - 55 Units/L 03/29/2020 12:58 AM [facility] AST 26 5 - 34 Units/L 03/29/2020 12:58 AM [facility] Anion Gap 16 8 - 18 03/29/2020 12:58 AM [facility] BUN/Creatinine Ratio 24(H) 7 - 23 03/29/2020 12:58 AM [facility] Osmolality Calculated 295 270 - 300 mOsm/kg 03/29/2020 12:58 AM [facility] Albumin/Globulin Ratio 0.8(L) 1.1 - 2.3 03/29/2020 12:58 AM [facility] eGFR >60 >60 mL/min/1.7 3 m2 03/29/2020 12:58 AM [facility] Blood BLOOD SPECIMEN / Unknown Lab Venipuncture / Unknown 03/29/2020 12:24 AM CDT 03/29/2020 12:35 AM CDT Asim Ramirez BURN TABLE OPERATOR-QUALITY PROCESS ENGINEER LAB - CHEMISTRY ORDERABLES Performing Organization Address City/State/[facility] Co de Phone Number [address] [phone] [phone] * (ABNORMAL) CBC W AUTO DIFFERENTIAL (03/29/2020 12:24 AM CDT) WBC 12.7(H) 3.5 - 10.5 10? 3 /uL 03/29/2020 12:55 AM [facility] Comment:The WBC count is cor rected by the instrument for nRBC's RBC 3.50(L) 4.30 - 5.70 10? 6 /uL 03/29/2020 12:55 AM [facility] Hemoglobin 10.3(L) 13.5 - 17.5 g/dL 03/29/2020 12:55 AM [facility] Hematocrit 31.4(L) 39.0 - 50.0 % 03/29/2020 12:55 AM [facility] MCV 89.7 81.0 - 97.0 fL 03/29/2020 12:55 AM [facility] MCH 29.4 28.0 - 34.0 pg 03/29/2020 12:55 AM [facility] MCHC 32.8 32.0 - 36.0 g/dL 03/29/2020 12:55 AM [facility] Platelet Count 237 150 - 400 10? 3 /uL 03/29/2020 12:55 AM [facility] RDW-SD 76.1(H) 36.0 - 50.0 fL 03/29/2020 12:55 AM [facility] RDW-CV 24.5(H) 11.2 - 14.8 % 03/29/2020 12:55 AM [facility] MPV 12.3 9.3 - 12.8 fL 03/29/2020 12:55 AM [facility] nRBC Absolute 1.08(H) 0 10? 3 /uL 03/29/2020 12:55 AM [facility] nRBC Auto 8.5(H) 0 /100 WBC 03/29/2020 12:55 AM [facility] Neutrophils % 81.1(H) 35.0 - 70.0 % 03/29/2020 12:55 AM [facility] Lymphocytes % 10.1(L) 19.7 - 55.1 % 03/29/2020 12:55 AM [facility] Monocytes % 6.1 3.0 - 15.0 % 03/29/2020 12:55 AM [facility] Eosinophils % 0.5 0.0 - 6.0 % 03/29/2020 12:55 AM [facility] Basophil % 0.2 0.0 - 1.5 % 03/29/2020 12:55 AM [facility] Neutrophils Absolute 10.3(H) 1.6 - 7.0 10? 3 /uL 03/29/2020 12:55 AM [facility] Lymphocyte Absolute 1.3 0.8 - 2.9 10? 3 /uL 03/29/2020 12:55 AM CDT [facility] Monocytes Absolute 0.78(H) 0.14 - 0.66 10? 3 /uL 03/29/2020 12:55 AM CDT [facility] Eosinophils Absolute 0.06 0.00 - 0.45 10? 3 /uL 03/29/2020 12:55 AM CDT [facility] Basophils Absolute 0.02 0.00 - 0.06 10? 3 /uL 03/29/2020 12:55 AM CDT [facility] Immature Granulocytes % 2.0(H) 0.0 - 1.0 % 03/29/2020 12:55 AM CDT [facility] Blood BLOOD SPECIMEN / Unknown Lab Venipuncture / Unknown 03/29/2020 12:24 AM CDT 03/29/2020 12:35 AM CDT Asim Ramirez BURN TABLE OPERATORCENTRAL HOSPITAL LAB - HEMATOLOGY ORDERABLES Performing Organization Address City/[facility]/[place] [address] [phone] * (ABNORMAL) C-REACTIVE PROTEIN (03/29/2020 12:24 AM CDT) Pathologist [facility] C-Reactive Protein 3.1(H) <=0.5 mg/dL 03/29/2020 1:01 AM CDT [facility] Blood BLOOD SPECIMEN / Unknown Lab Venipuncture / Unknown 03/29/2020 12:24 AM CDT 03/29/2020 12:35 AM CDT Asim Ramirez BURN TABLE OPERATOR[facility]ENTRAL HOSPITAL LAB - CHEMISTRY ORDERABLES [address] [address], [facility] [phone] * (ABNORMAL) RBC MORPHOLOGY (03/27/2020 6:07 AM CDT) Pathologist [facility] Platelet Estimate Adequate Adequate 020 7:36 AM CDT [facility] Anisocytosis 1+(A) None 03/27/2020 7:36 AM CDT [facility] Macrocytosis 1+(A) None 03/27/2020 7:36 AM CDT [facility] Polychromasia 1+(A) None 03/27/2020 7:36 AM CDT [facility] Target Cells 1+(A) None 03/27/2020 7:36 AM CDT [facility] Schistocytes Occasional( A) None 03/27/2020 7:36 AM CDT [facility] Ovalocytes 1+(A) None 03/27/2020 7:36 AM CDT [facility] Blood BLOOD SPECIMEN / Unknown Lab Venipuncture / Unknown 03/27/2020 6:07 AM CDT 03/27/2020 6:10 AM CDT Asim Ramirez [facility] LAB - HEMATOLOGY ORDERABLES Performing Organization Address [facility]/ZIP Co de Phone Number [place] [phone] [phone] * (ABNORMAL) PHOSPHORUS BLOOD (03/27/2020 6:07 AM CDT) Phosphorus 4.8(H) 2.3 - 4.7 mg/dL 03/27/2020 6:35 AM CDT [facility] Blood BLOOD SPECIMEN / Unknown Lab Venipuncture / Unknown 03/27/2020 6:07 AM CDT 03/27/2020 6:10 AM CDT Asim Ramirez [facility] LAB - CHEMISTRY ORDERABLES [address] [address], [place] [phone] * MAGNESIUM BLOOD (03/27/2020 6:07 AM CDT) Magnesium 1.7 1.6 - 2.6 mg/dL 03/27/2020 6:35 AM CDT [facility] Blood BLOOD SPECIMEN / Unknown Lab Venipuncture / Unknown 03/27/2020 6:07 AM CDT 03/27/2020 6:10 AM CDT Asim Ramirez BURN TABLE OPERATOR-QUALITY PROCESS ENGINEER LAB - CHEMISTRY ORDERABLES [address] [address], [place] [phone] * (ABNORMAL) LDH BLOOD (03/27/2020 6:07 AM CDT) LDH Total 358(H) 125 - 243 Units/L 03/27/2020 6:35 AM CDT [facility] Blood BLOOD SPECIMEN / Unknown Lab Venipuncture / Unknown 03/27/2020 6:07 AM CDT 03/27/2020 6:10 AM CDT Asim Ramirez BURN TABLE OPERATOR-QUALITY PROCESS ENGINEER LAB - CHEMISTRY ORDERABLES [place] [phone] [phone] * (ABNORMAL) FERRITIN (03/27/2020 6:07 AM CDT) Ferritin 651(H) 22 - 275 ng/mL 03/27/2020 7:21 AM CDT [facility] Blood BLOOD SPECIMEN / Unknown Lab Venipuncture / Unknown 03/27/2020 6:07 AM CDT 03/27/2020 6:10 AM CDT Asim Ramirez BURN TABLE OPERATOR-QUALITY PROCESS ENGINEER LAB - CHEMISTRY ORDERABLES [address] [address], [facility] [phone] * (ABNORMAL) ERYTHROCYTE SEDIMENTATION RATE (03/27/2020 6:07 AM CDT) Erythrocyte Sedimentation Rate Westergren 44(H) 0 - 15 MM/HR 03/27/2020 6:26 AM CDT [facility] Blood BLOOD SPECIMEN / Unknown Lab Venipuncture / Unknown 03/27/2020 6:07 AM CDT 03/27/2020 6:10 AM CDT Asim Ramirez BURN TABLE OPERATOR-QUALITY PROCESS ENGINEER LAB - HEMATOLOGY ORDERABLES [facility] [address] [place] [address], [facility] [phone] * (ABNORMAL) D-DIMER (03/27/2020 6:07 AM CDT) D-Dimer Quantitative 0.99(H) <=0.50 mcg/mL FEU 03/27/2020 6:29 AM CDT [facility] Comment: In the absence of clinical [...] CDT 03/27/2020 6:10 AM CDT Asim Ramirez BURN TABLE OPERATOR-QUALITY PROCESS ENGINEER LAB - COAGULATIO N ORDERABLES [facility] [address] [place] [phone] [phone] * (ABNORMAL) COMPREHENSIVE METABOLIC PANEL (03/27/2020 6:07 AM [facility]) BUN 21 7 - 26 mg/dL 03/27/2020 6:35 AM [facility] Creatinine 0.9 0.6 - 1.2 mg/dL 03/27/2020 6:35 AM [facility] Sodium 143 136 - 145 mmol/L 03/27/2020 6:35 AM [facility] Potassium 3.7 3.5 - 4.5 mmol/L 03/27/2020 6:35 AM [facility] Chloride 104 98 - 107 mmol/L 03/27/2020 6:35 AM [facility] CO2 27 22 - 29 mmol/L 03/27/2020 6:35 AM [facility] Glucose 90 70 - 115 mg/dL 03/27/2020 6:35 AM [facility] Calcium 8.6 8.4 - 10.2 mg/dL 03/27/2020 6:35 AM [facility] Protein Total 5.1(L) 6.0 - 8.3 g/dL 03/27/2020 6:35 AM [facility] Albumin 2.5(L) 3.4 - 5.0 g/dL 03/27/2020 6:35 AM [facility] Bilirubin Total 0.2 0.2 - 1.2 mg/dL 03/27/2020 6:35 AM [facility] Alkaline Phosphatase 99 40 - 150 Units/L 03/27/2020 6:35 AM [facility] ALT 73(H) 0 - 55 Units/L 03/27/2020 6:35 AM [facility] AST 27 5 - 34 Units/L 03/27/2020 6:35 AM [facility] Anion Gap 16 8 - 18 03/27/2020 6:35 AM [facility] BUN/Creatinine Ratio 23 7 - 23 03/27/2020 6:35 AM [facility] Osmolality Calculated 299 270 - 300 mOsm/kg 03/27/2020 6:35 AM [facility] Albumin/Globulin Ratio 1.0(L) 1.1 - 2.3 03/27/2020 6:35 AM [facility] eGFR >60 >60 mL/min/1.7 3 m2 03/27/2020 6:35 AM [facility] Blood BLOOD SPECIMEN / Unknown Lab Venipuncture / Unknown 03/27/2020 6:07 AM CDT 03/27/2020 6:10 AM CDT Asim Giovanna Ramirez BURN TABLE OPERATOR-QUALITY PROCESS ENGINEER LAB - CHEMISTRY ORDERABLES [address] [address], [facility] [phone] * (ABNORMAL) CBC W AUTO DIFFERENTIAL (03/27/2020 6:07 AM CDT) WBC 12.5(H) 3.5 - 10.5 10? 3 /uL 03/27/2020 6:15 AM [facility] Comment:The WBC count is cor rected by the instrument for nRBC's RBC 3.27(L) 4.30 - 5.70 10? 6 /uL 03/27/2020 6:15 AM [facility] Hemoglobin 9.7(L) 13.5 - 17.5 g/dL 03/27/2020 6:15 AM [facility] Hematocrit 29.8(L) 39.0 - 50.0 % 03/27/2020 6:15 AM [facility] MCV 91.1 81.0 - 97.0 fL 03/27/2020 6:15 AM [facility] MCH 29.7 28.0 - 34.0 pg 03/27/2020 6:15 AM [facility] MCHC 32.6 32.0 - 36.0 g/dL 03/27/2020 6:15 AM [facility] Platelet Count 211 150 - 400 10? 3 /uL 03/27/2020 6:15 AM [facility] RDW-SD 78.3(H) 36.0 - 50.0 fL 03/27/2020 6:15 AM [facility] RDW-CV 24.5(H) 11.2 - 14.8 % 03/27/2020 6:15 AM [facility] MPV 11.1 9.3 - 12.8 fL 03/27/2020 6:15 AM [facility] nRBC Absolute 1.36(H) 0 10? 3 /uL 03/27/2020 6:15 AM [facility] nRBC Auto 10.9(H) 0 /100 WBC 03/27/2020 6:15 AM [facility] Neutrophils % 76.5(H) 35.0 - 70.0 % 03/27/2020 6:15 AM [facility] Lymphocytes % 9.9(L) 19.7 - 55.1 % 03/27/2020 6:15 AM [facility] Monocytes % 7.9 3.0 - 15.0 % 03/27/2020 6:15 AM [facility] Eosinophils % 1.8 0.0 - 6.0 % 03/27/2020 6:15 AM [facility] Basophil % 0.5 0.0 - 1.5 % 03/27/2020 6:15 AM [facility] Neutrophils Absolute 9.6(H) 1.6 - 7.0 10? 3 /uL 03/27/2020 6:15 AM [facility] Lymphocyte Absolute 1.2 0.8 - 2.9 10? 3 /uL 03/27/2020 6:15 AM [facility] Monocytes Absolute 0.99(H) 0.14 - 0.66 10? 3 /uL 03/27/2020 6:15 AM [facility] Eosinophils Absolute 0.23 0.00 - 0.45 10? 3 /uL 03/27/2020 6:15 AM [facility] Basophils Absolute 0.06 0.00 - 0.06 10? 3 /uL 03/27/2020 6:15 AM [facility] Immature Granulocytes % 3.4(H) 0.0 - 1.0 % 03/27/2020 6:15 AM [facility] Blood BLOOD SPECIMEN / Unknown Lab Venipuncture / Unknown 03/27/2020 6:07 AM CDT 03/27/2020 6:10 AM [facility] Asim Ramirez BURN TABLE OPERATOR-QUALITY PROCESS ENGINEER LAB - HEMATOLOGY ORDERABLES Performing Organization Address [facility] Co de Phone Number [address] [address], [facility] [phone] * (ABNORMAL) C-REACTIVE PROTEIN (03/27/2020 6:07 AM CDT) C-Reactive Protein 2.1(H) <=0.5 mg/dL 03/27/2020 6:59 AM CDT [facility] Blood BLOOD SPECIMEN / Unknown Lab Venipuncture / Unknown 03/27/2020 6:07 AM CDT 03/27/2020 6:10 AM CDT Asim Ramirez [facility] - CHEMISTRY ORDERABLES Performing Organization Address [facility] Co de Phone Number [address] [address], [facility] [phone] * CULTURE BLOOD (03/24/2020 1:24 PM CDT) Culture No growth day 5 SPENCER 03/29/2020 4:30 PM CDT [facility] MICROBIOLOGY Blood PERIPHERAL BLOOD / Unknown Lab Venipuncture / Unknown 03/24/2020 1:24 PM CDT 03/24/2020 1:31 PM CDT Asim Ramirez APRN-QUALITY PROCESS ENGINEER LAB - MICROBIOLO GY ORDERABLES Performing Organization Address City/[facility]/ZIP Co de Phone Number [facility]CROBIOLOGY [address] [facility] [place] [address], [facility] [phone] * CULTURE BLOOD (03/24/2020 1:24 PM CDT) Culture No growth day 5 SPENCER 03/29/2020 4:30 PM CDT [facility] MICROBIOLOGY Blood PERIPHERAL BLOOD / Unknown Lab Venipuncture / Unknown 03/24/2020 1:24 PM CDT 03/24/2020 1:31 PM CDT Asim Ramirez BURN TABLE OPERATOR-QUALITY PROCESS ENGINEER LAB - MICROBIOLO GY ORDERABLES Performing Organization Address City/[facility]/ZIP Co de Phone Number [facility]CRO[facility]OLOG[facility] [address] [place], [place] [address] [phone] * (ABNORMAL) RBC MORPHOLOGY (03/24/2020 12:29 AM CDT) Platelet Estimate Adequate Adequate 020 1:59 AM CDT [facility] Anisocytosis 1+(A) None 03/24/2020 1:59 AM CDT [facility] Polychromasia 1+(A) None 03/24/2020 1:59 AM CDT [facility] Blank-Evening Shade Bodies Rare(A) None 03/24/2020 1:59 AM CDT [facility] Target Cells 1+(A) None 03/24/2020 1:59 AM CDT [facility] Sickle Cells Occasional( A) None 03/24/2020 1:59 AM CDT [facility] Schistocytes Occasional( A) None 03/24/2020 1:59 AM CDT [facility] Ovalocytes 1+(A) None 03/24/2020 1:59 AM CDT [facility] Blood BLOOD SPECIMEN / Unknown Lab Venipuncture / Unknown 03/24/2020 12:29 AM CDT 03/24/2020 12:41 AM CDT Asim Ramirez APRN-QUALITY PROCESS ENGINEER LAB - HEMATOLOGY ORDERABLES Performing Organization Address City/[facility]/ZIP Co de Phone Number [address] [address] [phone] * PHOSPHORUS BLOOD (03/24/2020 12:29 AM CDT) Phosphorus 4.1 2.3 - 4.7 mg/dL 03/24/2020 1:04 AM CDT [facility] Blood BLOOD SPECIMEN / Unknown Lab Venipuncture / Unknown 03/24/2020 12:29 AM CDT 03/24/2020 12:41 AM CDT Asim Ramirez BURN TABLE OPERATOR-QUALITY PROCESS ENGINEER LAB - CHEMISTRY ORDERABLES [address] [address], [facility] [phone] * MAGNESIUM BLOOD (03/24/2020 12:29 AM CDT) Pathologist [facility] Magnesium 1.8 1.6 - 2.6 mg/dL 03/24/2020 1:04 AM CDT [facility] Blood BLOOD SPECIMEN / Unknown Lab Venipuncture / Unknown 03/24/2020 12:29 AM CDT 03/24/2020 12:41 AM CDT Narrative Authorizing Provider Result Vanna Ramirez BURN TABLE OPERATOR-QUALITY PROCESS ENGINEER LAB - CHEMISTRY ORDERABLES [address], [facility] [phone] * (ABNORMAL) LDH BLOOD (03/24/2020 12:29 AM CDT) Pathologist [facility] LDH Total 369(H) 125 - 243 Units/L 03/24/2020 1:04 AM CDT [facility] Blood BLOOD SPECIMEN / Unknown Lab Venipuncture / Unknown 03/24/2020 12:29 AM CDT 03/24/2020 12:41 AM CDT Asim Ramirez APRN-QUALITY PROCESS ENGINEER LAB - CHEMISTRY ORDERABLES [address] [address], [facility] [phone] * (ABNORMAL) FERRITIN (03/24/2020 12:29 AM CDT) Pathologist [facility] Ferritin 658(H) 22 - 275 ng/mL 03/24/2020 1:53 AM CDT [facility] Blood BLOOD SPECIMEN / Unknown Lab Venipuncture / Unknown 03/24/2020 12:29 AM CDT 03/24/2020 12:41 AM CDT Asim Ramirez BURN TABLE OPERATOR-QUALITY PROCESS ENGINEER LAB - CHEMISTRY ORDERABLES [address] [address], [facility] [phone] * (ABNORMAL) ERYTHROCYTE SEDIMENTATION RATE (03/24/2020 12:29 AM CDT) Erythrocyte Sedimentation Rate Westergren 53(H) 0 - 15 MM/HR 03/24/2020 1:06 AM CDT [facility] Blood BLOOD SPECIMEN / Unknown Lab Venipuncture / Unknown 03/24/2020 12:29 AM CDT 03/24/2020 12:41 AM CDT Asim Ramirez BURN TABLE OPERATOR-QUALITY PROCESS ENGINEER LAB - HEMATOLOGY ORDERABLES [address] [address], [facility] [phone] * (ABNORMAL) D-DIMER (03/24/2020 12:29 AM CDT) Pathologist [facility] D-Dimer Quantitative 0.55(H) <=0.50 mcg/mL FEU 03/24/2020 1:05 AM CDT [facility] Comment: In the absence of clinical [...] CDT 03/24/2020 12:38 AM CDT Asim Ramirez BURN TABLE OPERATOR-QUALITY PROCESS ENGINEER LAB - COAGULATIO N ORDERABLES Performing Organization Address [facility]/State/ZIP Co de Phone Number [address] [address] [phone] * (ABNORMAL) COMPREHENSIVE METABOLIC PANEL (03/24/2020 12:29 AM CDT) BUN 20 7 - 26 mg/dL 03/24/2020 1:04 AM [facility] Creatinine 0.9 0.6 - 1.2 mg/dL 03/24/2020 1:04 AM [facility] Sodium 139 136 - 145 mmol/L 03/24/2020 1:04 AM [facility] Potassium 4.2 3.5 - 4.5 mmol/L 03/24/2020 1:04 AM [facility] Chloride 100 98 - 107 mmol/L 03/24/2020 1:04 AM [facility] CO2 26 22 - 29 mmol/L 03/24/2020 1:04 AM [facility] Glucose 131(H) 70 - 115 mg/dL 03/24/2020 1:04 AM [facility] Calcium 8.8 8.4 - 10.2 mg/dL 03/24/2020 1:04 AM [facility] Protein Total 5.5(L) 6.0 - 8.3 g/dL 03/24/2020 1:04 AM [facility] Albumin 2.6(L) 3.4 - 5.0 g/dL 03/24/2020 1:04 AM [facility] Bilirubin Total 0.2 0.2 - 1.2 mg/dL 03/24/2020 1:04 AM [facility] Alkaline Phosphatase 93 40 - 150 Units/L 03/24/2020 1:04 AM [facility] ALT 52 0 - 55 Units/L 03/24/2020 1:04 AM [facility] AST 20 5 - 34 Units/L 03/24/2020 1:04 AM [facility] Anion Gap 17 8 - 18 03/24/2020 1:04 AM [facility] BUN/Creatinine Ratio 22 7 - 23 03/24/2020 1:04 AM [facility] Osmolality Calculated 292 270 - 300 mOsm/kg 03/24/2020 1:04 AM [facility] Albumin/Globulin Ratio 0.9(L) 1.1 - 2.3 03/24/2020 1:04 AM [facility] eGFR >60 >60 mL/min/1.7 3 m2 03/24/2020 1:04 AM [facility] Blood BLOOD SPECIMEN / Unknown Lab Venipuncture / Unknown 03/24/2020 12:29 AM CDT 03/24/2020 12:41 AM CDT Asim Ramirez BURN TABLE OPERATOR-QUALITY PROCESS ENGINEER LAB - CHEMISTRY ORDERABLES Performing Organization Address [facility]/State/[facility] Co de Phone Number [address] [address] [phone] * (ABNORMAL) CBC W AUTO DIFFERENTIAL (03/24/2020 12:29 AM CDT) WBC 16.8(H) 3.5 - 10.5 10? 3 /uL 03/24/2020 12:53 AM [facility] Comment:The WBC count is cor rected by the instrument for nRBC's RBC 3.40(L) 4.30 - 5.70 10? 6 /uL 03/24/2020 12:53 AM [facility] Hemoglobin 9.9(L) 13.5 - 17.5 g/dL 03/24/2020 12:53 AM [facility] Hematocrit 30.4(L) 39.0 - 50.0 % 03/24/2020 12:53 AM [facility] MCV 89.4 81.0 - 97.0 fL 03/24/2020 12:53 AM [facility] MCH 29.1 28.0 - 34.0 pg 03/24/2020 12:53 AM [facility] MCHC 32.6 32.0 - 36.0 g/dL 03/24/2020 12:53 AM [facility] Platelet Count 240 150 - 400 10? 3 /uL 03/24/2020 12:53 AM [facility] RDW-SD 72.8(H) 36.0 - 50.0 fL 03/24/2020 12:53 AM [facility] RDW-CV 23.2(H) 11.2 - 14.8 % 03/24/2020 12:53 AM [facility] MPV 12.9(H) 9.3 - 12.8 fL 03/24/2020 12:53 AM [facility] nRBC Absolute 0.74(H) 0 10? 3 /uL 03/24/2020 12:53 AM [facility] nRBC Auto 4.4(H) 0 /100 WBC 03/24/2020 12:53 AM [facility] Neutrophils % 81.6(H) 35.0 - 70.0 % 03/24/2020 12:53 AM [facility] Lymphocytes % 7.2(L) 19.7 - 55.1 % 03/24/2020 12:53 AM [facility] Monocytes % 7.5 3.0 - 15.0 % 03/24/2020 12:53 AM [facility] Eosinophils % 0.6 0.0 - 6.0 % 03/24/2020 12:53 AM [facility] Basophil % 0.3 0.0 - 1.5 % 03/24/2020 12:53 AM [facility] Neutrophils Absolute 13.7(H) 1.6 - 7.0 10? 3 /uL 03/24/2020 12:53 AM [facility] Lymphocyte Absolute 1.2 0.8 - 2.9 10? 3 /uL 03/24/2020 12:53 AM [facility] Monocytes Absolute 1.25(H) 0.14 - 0.66 10? 3 /uL 03/24/2020 12:53 AM [facility] Eosinophils Absolute 0.10 0.00 - 0.45 10? 3 /uL 03/24/2020 12:53 AM [facility] Basophils Absolute 0.05 0.00 - 0.06 10? 3 /uL 03/24/2020 12:53 AM CDT [facility] Immature Granulocytes % 2.8(H) 0.0 - 1.0 % 03/24/2020 12:53 AM CDT [facility] Blood BLOOD SPECIMEN / Unknown Lab Venipuncture / Unknown 03/24/2020 12:29 AM CDT 03/24/2020 12:41 AM CDT Asim Ramirez [facility] LAB - HEMATOLOGY ORDERABLES [address], [facility] [phone] * (ABNORMAL) C-REACTIVE PROTEIN (03/24/2020 12:29 AM CDT) C-Reactive Protein 2.2(H) <=0.5 mg/dL 03/24/2020 1:14 AM CDT [facility] Blood BLOOD SPECIMEN / Unknown Lab Venipuncture / Unknown 03/24/2020 12:29 AM CDT 03/24/2020 12:41 AM CDT Asim Ramirez [facility] LAB - CHEMISTRY ORDERABLES Performing Organization Address [facility] Co de Phone Number [address] [address], [facility] [phone] * (ABNORMAL) IGG BLOOD (03/22/2020 12:46 AM CDT) IgG 509(L) 540-1,822 mg/dL 03/22/2020 10:26 AM CDT [facility] Blood BLOOD SPECIMEN / Unknown Lab Venipuncture / Unknown 03/22/2020 12:46 AM CDT 03/22/2020 1:04 AM CDT Asim Ramirez BURN TABLE OPERATORCENTRAL HOSPITAL LAB - CHEMISTRY ORDERABLES Performing Organization Address [facility]/ZIP Co de Phone Number [address] [address], [facility] [phone] * (ABNORMAL) RBC MORPHOLOGY (03/22/2020 12:46 AM CDT) Pathologist [facility] Anisocytosis 1+(A) None 03/22/2020 1:41 AM CDT [facility] Hypochromia 1+(A) None 03/22/2020 1:41 AM CDT [facility] Polychromasia 1+(A) None 03/22/2020 1:41 AM CDT [facility] Target Cells 1+(A) None 03/22/2020 1:41 AM CDT [facility] Schistocytes Occasiona l(A) None 03/22/2020 1:41 AM CDT [facility] Ovalocytes 1+(A) None 03/22/2020 1:41 AM CDT [facility] Large Platelet Count 1+(A) None 03/22/2020 1:41 AM CDT [facility] Blood BLOOD SPECIMEN / Unknown Lab Venipuncture / Unknown 03/22/2020 12:46 AM CDT 03/22/2020 1:04 AM CDT Tiffanie Nguyen APRN-QUALITY PROCESS ENGINEER LAB - HEMATOLOG Y ORDERABLES [address] [phone] * (ABNORMAL) C-REACTIVE PROTEIN (03/22/2020 12:46 AM CDT) Pathologist [facility] C-Reactive Protein 3.0(H) <=0.5 mg/dL 03/22/2020 1:27 AM CDT [facility] Blood BLOOD SPECIMEN / Unknown Lab Venipuncture / Unknown 03/22/2020 12:46 AM CDT 03/22/2020 1:04 AM CDT Savanah Bolton APRN-QUALITY PROCESS ENGINEER LAB - CHEMISTRY ORDE RABFLO [address] [address], [facility] [phone] * (ABNORMAL) LDH BLOOD (03/22/2020 12:46 AM CDT) Pathologist [facility] LDH Total 390(H) 125 - 243 Units/L 03/22/2020 1:36 AM CDT [facility] Blood BLOOD SPECIMEN / Unknown Lab Venipuncture / Unknown 03/22/2020 12:46 AM CDT 03/22/2020 1:04 AM CDT Kenneth Martins MD LAB - CHEMISTRY CINTHIA [place] Performing Organization Address City/[facility]/ZIP Co de Phone Number [address] [address], [facility] [phone] * (ABNORMAL) FERRITIN (03/22/2020 12:46 AM CDT) [facility] Ferritin 737(H) 22 - 275 ng/mL 03/22/2020 1:51 AM CDT [facility] Blood BLOOD SPECIMEN / Unknown Lab Venipuncture / Unknown 03/22/2020 12:46 AM CDT 03/22/2020 1:04 AM CDT Kenneth Martins MD LAB - CHEMISTRY [place]IA [place] Performing Organization Address [facility]/ZIP Co de Phone Number [address] [address], [facility] [phone] * (ABNORMAL) ERYTHROCYTE SEDIMENTATION RATE (03/22/2020 12:46 AM CDT) [facility] Erythrocyte Sedimentation Rate Westergren 50(H) 0 - 15 MM/HR 03/22/2020 1:19 AM CDT [facility] Blood BLOOD SPECIMEN / Unknown Lab Venipuncture / Unknown 03/22/2020 12:46 AM CDT 03/22/2020 1:04 AM CDT Kenneth Martins MD LAB - HEMATOLOGY TY [place] Performing Organization Address [facility]/ZIP Co de Phone Number [address] [address], [facility] [phone] * (ABNORMAL) D-DIMER (03/22/2020 12:46 AM CDT) [facility] D-Dimer Quantitative 0.63(H) <=0.50 mcg/mL FEU 03/22/2020 1:26 AM CDT [facility] Comment: In the absence of [...] Martins MD LAB - COAGULATION OR DERABLES [address] [address], [facility] [phone] * PHOSPHORUS BLOOD (03/22/2020 12:46 AM CDT) Phosphorus 3.9 2.3 - 4.7 mg/dL 03/22/2020 1:36 AM CDT [facility] Blood BLOOD SPECIMEN / Unknown Lab Venipuncture / Unknown 03/22/2020 12:46 AM CDT 03/22/2020 1:04 AM CDT Tiffanie Nguyen BURN TABLE OPERATOR-QUALITY PROCESS ENGINEER LAB - CHEMISTRY ORDERABLES [address] [address], [place] [phone] * MAGNESIUM BLOOD (03/22/2020 12:46 AM CDT) Magnesium 2.0 1.6 - 2.6 mg/dL 03/22/2020 1:36 AM T [facility] Blood BLOOD SPECIMEN / Unknown Lab Venipuncture / Unknown 03/22/2020 12:46 AM CDT 03/22/2020 1:04 AM CDT Tiffanie Nguyen BURN TABLE OPERATOR-QUALITY PROCESS ENGINEER LAB - CHEMISTRY ORDERABLES [address] [address], [place] [phone] * (ABNORMAL) COMPREHENSIVE METABOLIC PANEL (03/22/2020 12:46 AM CDT) BUN 15 7 - 26 mg/dL 03/22/2020 1:36 AM [facility] Creatinine 0.8 0.6 - 1.2 mg/dL 03/22/2020 1:36 AM [facility] Sodium 140 136 - 145 mmol/L 03/22/2020 1:36 AM [facility] Potassium 4.2 3.5 - 4.5 mmol/L 03/22/2020 1:36 AM [facility] Chloride 98 98 - 107 mmol/L 03/22/2020 1:36 AM [facility] CO2 32(H) 22 - 29 mmol/L 03/22/2020 1:36 AM [facility] Glucose 108 70 - 115 mg/dL 03/22/2020 1:36 AM [facility] Calcium 8.4 8.4 - 10.2 mg/dL 03/22/2020 1:36 AM [facility] Protein Total 5.4(L) 6.0 - 8.3 g/dL 03/22/2020 1:36 AM [facility] Albumin 2.4(L) 3.4 - 5.0 g/dL 03/22/2020 1:36 AM [facility] Bilirubin Total 0.2 0.2 - 1.2 mg/dL 03/22/2020 1:36 AM [facility] Alkaline Phosphatase 86 40 - 150 Units/L 03/22/2020 1:36 AM [facility] ALT 46 0 - 55 Units/L 03/22/2020 1:36 AM [facility] AST 19 5 - 34 Units/L 03/22/2020 1:36 AM [facility] Anion Gap 14 8 - 18 03/22/2020 1:36 AM [facility] BUN/Creatinine Ratio 19 7 - 23 03/22/2020 1:36 AM [facility] Osmolality Calculated 291 270 - 300 mOsm/kg 03/22/2020 1:36 AM [facility] Albumin/Globulin Ratio 0.8(L) 1.1 - 2.3 03/22/2020 1:36 AM [facility] eGFR >60 >60 mL/min/1.7 3 m2 03/22/2020 1:36 AM [facility] Blood BLOOD SPECIMEN / Unknown Lab Venipuncture / Unknown 03/22/2020 12:46 AM CDT 03/22/2020 1:04 AM T Lara Patrick BURN TABLE OPERATOR-QUALITY PROCESS ENGINEER LAB - CHEMISTRY ORDERABLES Performing Organization Address City/State/[facility] Co de Phone Number [address] [address] [phone] * (ABNORMAL) CBC W AUTO DIFFERENTIAL (03/22/2020 12:46 AM CDT) WBC 14.3(H) 3.5 - 10.5 10? 3 /uL 03/22/2020 1:12 AM [facility] Comment:The WBC count is cor rected by the instrument for nRBC's RBC 3.42(L) 4.30 - 5.70 10? 6 /uL 03/22/2020 1:12 AM [facility] Hemoglobin 10.0(L) 13.5 - 17.5 g/dL 03/22/2020 1:12 AM [facility] Hematocrit 30.2(L) 39.0 - 50.0 % 03/22/2020 1:12 AM [facility] MCV 88.3 81.0 - 97.0 fL 03/22/2020 1:12 AM [facility] MCH 29.2 28.0 - 34.0 pg 03/22/2020 1:12 AM [facility] MCHC 33.1 32.0 - 36.0 g/dL 03/22/2020 1:12 AM [facility] Platelet Count 205 150 - 400 10? 3 /uL 03/22/2020 1:12 AM [facility] RDW-SD 69.9(H) 36.0 - 50.0 fL 03/22/2020 1:12 AM [facility] RDW-CV 22.3(H) 11.2 - 14.8 % 03/22/2020 1:12 AM [facility] MPV 12.4 9.3 - 12.8 fL 03/22/2020 1:12 AM [facility] nRBC Absolute 0.58(H) 0 10? 3 /uL 03/22/2020 1:12 AM [facility] nRBC Auto 4.1(H) 0 /100 WBC 03/22/2020 1:12 AM [facility] Neutrophils % 83.6(H) 35.0 - 70.0 % 03/22/2020 1:12 AM [facility] Lymphocytes % 6.8(L) 19.7 - 55.1 % 03/22/2020 1:12 AM [facility] Monocytes % 5.3 3.0 - 15.0 % 03/22/2020 1:12 AM [facility] Eosinophils % 0.5 0.0 - 6.0 % 03/22/2020 1:12 AM [facility] Basophil % 0.3 0.0 - 1.5 % 03/22/2020 1:12 AM [facility] Neutrophils Absolute 12.0(H) 1.6 - 7.0 10? 3 /uL 03/22/2020 1:12 AM [facility] Lymphocyte Absolute 1.0 0.8 - 2.9 10? 3 /uL 03/22/2020 1:12 AM CDT [facility] Monocytes Absolute 0.75(H) 0.14 - 0.66 10? 3 /uL 03/22/2020 1:12 AM CDT [facility] Eosinophils Absolute 0.07 0.00 - 0.45 10? 3 /uL 03/22/2020 1:12 AM CDT [facility] Basophils Absolute 0.04 0.00 - 0.06 10? 3 /uL 03/22/2020 1:12 AM CDT [facility] Immature Granulocytes % 3.5(H) 0.0 - 1.0 % 03/22/2020 1:12 AM CDT [facility] Blood BLOOD SPECIMEN / Unknown Lab Venipuncture / Unknown 03/22/2020 12:46 AM CDT 03/22/2020 1:04 AM CDT Tiffanie Nguyen BURN TABLE OPERATOR-[facility] LAB - HEMATOLOG Y ORDERABLES [facility] [address] [place] [address], [facility] [phone] * CULTURE BLOOD (03/21/2020 2:19 AM CDT) Pathologist [facility] Culture No growth day 5 SPENCER 03/26/2020 5:30 AM CDT [facility] MICROBIOLOGY Blood PERIPHERAL BLOOD / Unknown Lab Venipuncture / Unknown 03/21/2020 2:19 AM CDT 03/21/2020 2:23 AM CDT Keli Case BURN TABLE OPERATOR-[facility] LAB - MICROBIOLOG Y ORDERABLES [facility] MICRO[facility] [address] [place] [address], [facility] [phone] * (ABNORMAL) RBC MORPHOLOGY (03/21/2020 2:13 AM CDT) Platelet Estimate Adequate Adequate 020 2:58 AM CDT [facility] Anisocytosis 1+(A) None 03/21/2020 2:58 AM CDT [facility] Microcytes Occasional( A) None 03/21/2020 2:58 AM CDT [facility] Polychromasia 1+(A) None 03/21/2020 2:58 AM CDT [facility] Basophilic Stippling Rare(A) None 03/21/2020 2:58 AM CDT [facility] Blank-Evening Shade Bodies Rare(A) None 03/21/2020 2:58 AM CDT [facility] Target Cells 1+(A) None 03/21/2020 2:58 AM CDT [facility] Schistocytes 1+(A) None 03/21/2020 2:58 AM CDT [facility] Ovalocytes Occasional( A) None 03/21/2020 2:58 AM CDT [facility] Tear Drop Cells Occasional( A) None 03/21/2020 2:58 AM CDT [facility] Large Platelet Count 1+(A) None 03/21/2020 2:58 AM CDT [facility] Blood BLOOD SPECIMEN / Unknown Lab Venipuncture / Unknown 03/21/2020 2:13 AM CDT 03/21/2020 2:23 AM CDT Tiffanie Nguyen BURN TABLE OPERATOR-[facility] LAB - HEMATOLOG Y ORDERABLES [address] [address], [place] [phone] * (ABNORMAL) C-REACTIVE PROTEIN (03/21/2020 2:13 AM CDT) C-Reactive Protein 3.2(H) <=0.5 mg/dL 03/21/2020 2:59 AM CDT [facility] Blood BLOOD SPECIMEN / Unknown Lab Venipuncture / Unknown 03/21/2020 2:13 AM CDT 03/21/2020 2:23 AM CDT Savanah Bolton BURN TABLE OPERATOR-QUALITY PROCESS ENGINEER LAB - CHEMISTRY ORDE [place]LA [address] [address] [phone] * PHOSPHORUS BLOOD (03/21/2020 2:13 AM CDT) Pathologist [facility] Phosphorus 3.9 2.3 - 4.7 mg/dL 03/21/2020 2:46 AM CDT [facility] Blood BLOOD SPECIMEN / Unknown Lab Venipuncture / Unknown 03/21/2020 2:13 AM CDT 03/21/2020 2:23 AM CDT Tiffanie Seymour Patrick BURN TABLE OPERATOR[facility]ITAL LAB - CHEMISTRY ORDERABLES Performing Organization Address [facility]/State/ZIP Co de Phone Number [address], [facility] [phone] * MAGNESIUM BLOOD (03/21/2020 2:13 AM CDT) Pathologist [facility] Magnesium 1.9 1.6 - 2.6 mg/dL 03/21/2020 2:46 AM CDT [facility] Blood BLOOD SPECIMEN / Unknown Lab Venipuncture / Unknown 03/21/2020 2:13 AM CDT 03/21/2020 2:23 AM CDT Tiffanie Seymour Patrick [facility] - CHEMISTRY ORDERABLES Performing Organization Address [facility]/[place]IP [place] [address], [facility] [phone] * (ABNORMAL) COMPREHENSIVE METABOLIC PANEL (03/21/2020 2:13 AM CDT) Pathologist [facility] BUN 16 7 - 26 mg/dL 03/21/2020 2:46 AM CDT [facility] Creatinine 0.8 0.6 - 1.2 mg/dL 03/21/2020 2:46 AM CDT [facility] Sodium 139 136 - 145 mmol/L 03/21/2020 2:46 AM CDT [facility] Potassium 4.2 3.5 - 4.5 mmol/L 03/21/2020 2:46 AM CDT [facility] Chloride 99 98 - 107 mmol/L 03/21/2020 2:46 AM CDT [facility] CO2 30(H) 22 - 29 mmol/L 03/21/2020 2:46 AM [facility] Glucose 98 70 - 115 mg/dL 03/21/2020 2:46 AM [facility] Calcium 8.6 8.4 - 10.2 mg/dL 03/21/2020 2:46 AM [facility] Protein Total 5.4(L) 6.0 - 8.3 g/dL 03/21/2020 2:46 AM [facility] Albumin 2.4(L) 3.4 - 5.0 g/dL 03/21/2020 2:46 AM [facility] Bilirubin Total 0.2 0.2 - 1.2 mg/dL 03/21/2020 2:46 AM [facility] Alkaline Phosphatase 91 40 - 150 Units/L 03/21/2020 2:46 AM [facility] ALT 36 0 - 55 Units/L 03/21/2020 2:46 AM [facility] AST 15 5 - 34 Units/L 03/21/2020 2:46 AM [facility] Anion Gap 14 8 - 18 03/21/2020 2:46 AM [facility] BUN/Creatinine Ratio 20 7 - 23 03/21/2020 2:46 AM [facility] Osmolality Calculated 289 270 - 300 mOsm/kg 03/21/2020 2:46 AM [facility] Albumin/Globulin Ratio 0.8(L) 1.1 - 2.3 03/21/2020 2:46 AM [facility] eGFR >60 >60 mL/min/1.7 3 m2 03/21/2020 2:46 AM [facility] Blood BLOOD SPECIMEN / Unknown Lab Venipuncture / Unknown 03/21/2020 2:13 AM CDT 03/21/2020 2:23 AM T Tiffanie Nguyen BURN TABLE OPERATOR-QUALITY PROCESS ENGINEER LAB - CHEMISTRY ORDERABLES [address] [id number] [phone] * (ABNORMAL) CBC W AUTO DIFFERENTIAL (03/21/2020 2:13 AM CDT) WBC 13.6(H) 3.5 - 10.5 10? 3 /uL 03/21/2020 2:29 AM [facility] Comment:The WBC count is cor rected by the instrument for nRBC's RBC 3.47(L) 4.30 - 5.70 10? 6 /uL 03/21/2020 2:29 AM [facility] Hemoglobin 10.0(L) 13.5 - 17.5 g/dL 03/21/2020 2:29 AM [facility] Hematocrit 30.4(L) 39.0 - 50.0 % 03/21/2020 2:29 AM [facility] MCV 87.6 81.0 - 97.0 fL 03/21/2020 2:29 AM [facility] MCH 28.8 28.0 - 34.0 pg 03/21/2020 2:29 AM [facility] MCHC 32.9 32.0 - 36.0 g/dL 03/21/2020 2:29 AM [facility] Platelet Count 192 150 - 400 10? 3 /uL 03/21/2020 2:29 AM [facility] RDW-SD 67.5(H) 36.0 - 50.0 fL 03/21/2020 2:29 AM [facility] RDW-CV 22.1(H) 11.2 - 14.8 % 03/21/2020 2:29 AM [facility] MPV 03/21/2020 2:29 AM [facility] Comment:NOT MEASURED nRBC Absolute 0.77(H) 0 10? 3 /uL 03/21/2020 2:29 AM [facility] nRBC Auto 5.7(H) 0 /100 WBC 03/21/2020 2:29 AM [facility] Neutrophils % 82.7(H) 35.0 - 70.0 % 03/21/2020 2:29 AM [facility] Lymphocytes % 7.1(L) 19.7 - 55.1 % 03/21/2020 2:29 AM [facility] Monocytes % 5.2 3.0 - 15.0 % 03/21/2020 2:29 AM [facility] Eosinophils % 0.8 0.0 - 6.0 % 03/21/2020 2:29 AM CDT [facility] Basophil % 0.2 0.0 - 1.5 % 03/21/2020 2:29 AM T [facility] Neutrophils Absolute 11.3(H) 1.6 - 7.0 10? 3 /uL 03/21/2020 2:29 AM CDT [facility] Lymphocyte Absolute 1.0 0.8 - 2.9 10? 3 /uL 03/21/2020 2:29 AM CDT [facility] Monocytes Absolute 0.71(H) 0.14 - 0.66 10? 3 /uL 03/21/2020 2:29 AM CDT [facility] Eosinophils Absolute 0.11 0.00 - 0.45 10? 3 /uL 03/21/2020 2:29 AM T [facility] Basophils Absolute 0.03 0.00 - 0.06 10? 3 /uL 03/21/2020 2:29 AM [facility] Immature Granulocytes % 4.0(H) 0.0 - 1.0 % 03/21/2020 2:29 AM T [facility] Blood BLOOD SPECIMEN / Unknown Lab Venipuncture / Unknown 03/21/2020 2:13 AM CDT 03/21/2020 2:23 AM CDT Tiffanie Nguyen BURN TABLE OPERATOR-QUALITY PROCESS ENGINEER LAB - HEMATOLOG Y ORDERABLES Performing Organization Address [facility]/State/ZIP Co de Phone Number [address] [address], [facility] [phone] * B-TYPE NATRIURETIC PEPTIDE (03/21/2020 2:13 AM CDT) BNP <10 See Comment pg/mL 03/21/2020 2:48 AM T [facility] Comment: * Disclaimer: BNP results may be falsely high by 20% due * * to shift observed secondary to new reagent lot. Lab ?* * working with resident advisor to resolve. ?* * ?* * Please contact [facility] First Press Operator with any questions ??* A decision threshold [...] CDT 03/21/2020 2:23 AM CDT Keli Evie BURN TABLE OPERATOR-QUALITY PROCESS ENGINEER LAB - CHEMISTRY O RDERABLES Performing Organization Address [facility] Co de Phone Number [address] [address], [facility] [phone] * CULTURE BLOOD (03/21/2020 2:13 AM CDT) Culture No growth day 5 SPENCER 03/26/2020 5:30 AM CDT [facility]CRO[facility] Blood PERIPHERAL BLOOD / Unknown Lab Venipuncture / Unknown 03/21/2020 2:13 AM CDT 03/21/2020 2:23 AM CDT Keli Evie BURN TABLE OPERATOR-QUALITY PROCESS ENGINEER LAB - MICROBIOLOG Y ORDERABLES Performing Organization Address [facility] de Phone Number [facility]CRO[facility] [address] [place] [address], [facility] [phone] * XR CHEST 1VW PORTABLE (03/20/2020 4:51 [...] abnormality. Report dictated by Adrián Vides MD (radiology technician). I, Dr. YARA MADRIGAL have personally reviewed [...] abnormality. Report dictated by Adrián Vides MD (radiology technician). I, Dr. YARA MADRIGAL have personally reviewed and interpreted this examination/study. This report was electronically signed by YARA MADRIGAL on 03/22/2020 9:32 AM . Keli Case BURN TABLE OPERATOR-QUALITY PROCESS ENGINEER DIAGNOSTIC IMAGIN G ORDERABLES * (ABNORMAL) RBC MORPHOLOGY (03/20/2020 8:44 AM CDT) Anisocytosis 1+(A) None 03/20/2020 9:49 AM CDT [facility] Hypochromia Rare(A) None 03/20/2020 9:49 AM CDT [facility] Polychromasia 1+(A) None 03/20/2020 9:49 AM CDT [facility] Blank-Evening Shade Bodies Rare(A) None 03/20/2020 9:49 AM CDT [facility] Target Cells 1+(A) None 03/20/2020 9:49 AM CDT [facility] Schistocytes 1+(A) None 03/20/2020 9:49 AM CDT [facility] Blood BLOOD SPECIMEN / Unknown Lab Venipuncture / Unknown 03/20/2020 8:44 AM CDT 03/20/2020 9:04 AM CDT Tiffanie MIMS LAB - HEMATOLOG Y ORDERABLES [address] [address], [facility] [phone] * (ABNORMAL) C-REACTIVE PROTEIN (03/20/2020 8:44 AM CDT) C-Reactive Protein 1.9(H) <=0.5 mg/dL 03/20/2020 9:48 AM CDT [facility] Blood BLOOD SPECIMEN / Unknown Lab Venipuncture / Unknown 03/20/2020 8:44 AM CDT 03/20/2020 9:04 AM CDT Savanah MIMS LAB - CHEMISTRY CINTHIA [place] [address] [address], [facility] [phone] * (ABNORMAL) LDH BLOOD (03/20/2020 8:44 AM CDT) [facility] LDH Total 395(H) 125 - 243 Units/L 03/20/2020 9:30 AM CDT [facility] Blood BLOOD SPECIMEN / Unknown Lab Venipuncture / Unknown 03/20/2020 8:44 AM CDT 03/20/2020 9:04 AM CDT Kenneth Martins MD LAB - CHEMISTRY CINTHIA [place] [address] [address], [facility] [phone] * (ABNORMAL) FERRITIN (03/20/2020 8:44 AM CDT) Pathologist [facility] Ferritin 703(H) 22 - 275 ng/mL 03/20/2020 9:49 AM CDT [facility] Blood BLOOD SPECIMEN / Unknown Lab Venipuncture / Unknown 03/20/2020 8:44 AM CDT 03/20/2020 9:04 AM CDT Kenneth Martins MD LAB - CHEMISTRY CINTHIA [place] Performing Organization Address [facility]/ZIP Co de Phone Number [address], [facility] [phone] * (ABNORMAL) ERYTHROCYTE SEDIMENTATION RATE (03/20/2020 8:44 AM CDT) Erythrocyte Sedimentation Rate Westergren 51(H) 0 - 15 MM/HR 03/20/2020 9:41 AM CDT [facility] Blood BLOOD SPECIMEN / Unknown Lab Venipuncture / Unknown 03/20/2020 8:44 AM CDT 03/20/2020 9:04 AM CDT Kenneth Martins MD LAB - HEMATOLOGY [place] Performing Organization Address [facility] Co de Phone Number [address] [phone] * (ABNORMAL) D-DIMER (03/20/2020 8:44 AM CDT) Pathologist [facility] D-Dimer Quantitative 1.90(H) <=0.50 mcg/mL FEU 03/20/2020 9:25 AM CDT [facility] Comment: In the absence of clinical [...] Martins MD LAB - COAGULATION OR DERABLES [place] [phone], [facility] [phone] * PHOSPHORUS BLOOD (03/20/2020 8:44 AM CDT) Phosphorus 3.7 2.3 - 4.7 mg/dL 03/20/2020 9:30 AM CDT [facility] Blood BLOOD SPECIMEN / Unknown Lab Venipuncture / Unknown 03/20/2020 8:44 AM CDT 03/20/2020 9:04 AM CDT Tiffanie Nguyen APRN-QUALITY PROCESS ENGINEER LAB - CHEMISTRY ORDERABLES [address] [address], [facility] [phone] * MAGNESIUM BLOOD (03/20/2020 8:44 AM CDT) Magnesium 1.9 1.6 - 2.6 mg/dL 03/20/2020 9:30 AM CDT [facility] Blood BLOOD SPECIMEN / Unknown Lab Venipuncture / Unknown 03/20/2020 8:44 AM CDT 03/20/2020 9:04 AM CDT Tiffanie Nguyen APRN-QUALITY PROCESS ENGINEER LAB - CHEMISTRY ORDERABLES [facility] [address] [place] [address], [facility] [phone] * (ABNORMAL) COMPREHENSIVE METABOLIC PANEL (03/20/2020 8:44 AM [facility]) BUN 23 7 - 26 mg/dL 03/20/2020 9:30 AM [facility] Creatinine 0.8 0.6 - 1.2 mg/dL 03/20/2020 9:30 AM [facility] Sodium 141 136 - 145 mmol/L 03/20/2020 9:30 AM [facility] Potassium 4.4 3.5 - 4.5 mmol/L 03/20/2020 9:30 AM [facility] Chloride 100 98 - 107 mmol/L 03/20/2020 9:30 AM [facility] CO2 31(H) 22 - 29 mmol/L 03/20/2020 9:30 AM [facility] Glucose 79 70 - 115 mg/dL 03/20/2020 9:30 AM [facility] Calcium 8.7 8.4 - 10.2 mg/dL 03/20/2020 9:30 AM [facility] Protein Total 5.6(L) 6.0 - 8.3 g/dL 03/20/2020 9:30 AM [facility] Albumin 2.5(L) 3.4 - 5.0 g/dL 03/20/2020 9:30 AM [facility] Bilirubin Total 0.3 0.2 - 1.2 mg/dL 03/20/2020 9:30 AM [facility] Alkaline Phosphatase 94 40 - 150 Units/L 03/20/2020 9:30 AM [facility] ALT 37 0 - 55 Units/L 03/20/2020 9:30 AM [facility] AST 17 5 - 34 Units/L 03/20/2020 9:30 AM [facility] Anion Gap 14 8 - 18 03/20/2020 9:30 AM [facility] BUN/Creatinine Ratio 29(H) 7 - 23 03/20/2020 9:30 AM [facility] Osmolality Calculated 295 270 - 300 mOsm/kg 03/20/2020 9:30 AM [facility] Albumin/Globulin Ratio 0.8(L) 1.1 - 2.3 03/20/2020 9:30 AM [facility] eGFR >60 >60 mL/min/1.7 3 m2 03/20/2020 9:30 AM [facility] Blood BLOOD SPECIMEN / Unknown Lab Venipuncture / Unknown 03/20/2020 8:44 AM CDT 03/20/2020 9:04 AM CDT Lara Patrick BURN TABLE OPERATOR-QUALITY PROCESS ENGINEER LAB - CHEMISTRY ORDERABLES [address] [address], [facility] [phone] * (ABNORMAL) CBC W AUTO DIFFERENTIAL (03/20/2020 8:44 AM CDT) WBC 16.3(H) 3.5 - 10.5 10? 3 /uL 03/20/2020 9:25 AM [facility] Comment:The WBC count is cor rected by the instrument for nRBC's RBC 3.70(L) 4.30 - 5.70 10? 6 /uL 03/20/2020 9:25 AM [facility] Hemoglobin 10.8(L) 13.5 - 17.5 g/dL 03/20/2020 9:25 AM [facility] Hematocrit 33.0(L) 39.0 - 50.0 % 03/20/2020 9:25 AM [facility] MCV 89.2 81.0 - 97.0 fL 03/20/2020 9:25 AM [facility] MCH 29.2 28.0 - 34.0 pg 03/20/2020 9:25 AM [facility] MCHC 32.7 32.0 - 36.0 g/dL 03/20/2020 9:25 AM [facility] Platelet Count 181 150 - 400 10? 3 /uL 03/20/2020 9:25 AM [facility] RDW-SD 66.4(H) 36.0 - 50.0 fL 03/20/2020 9:25 AM [facility] RDW-CV 22.0(H) 11.2 - 14.8 % 03/20/2020 9:25 AM [facility] MPV 03/20/2020 9:25 AM [facility] Comment:NOT MEASURED nRBC Absolute 1.22(H) 0 10? 3 /uL 03/20/2020 9:25 AM [facility] nRBC Auto 7.5(H) 0 /100 WBC 03/20/2020 9:25 AM [facility] Neutrophils % 83.2(H) 35.0 - 70.0 % 03/20/2020 9:25 AM [facility] Lymphocytes % 4.9(L) 19.7 - 55.1 % 03/20/2020 9:25 AM [facility] Monocytes % 4.2 3.0 - 15.0 % 03/20/2020 9:25 AM [facility] Eosinophils % 2.3 0.0 - 6.0 % 03/20/2020 9:25 AM [facility] Basophil % 0.4 0.0 - 1.5 % 03/20/2020 9:25 AM [facility] Neutrophils Absolute 13.6(H) 1.6 - 7.0 10? 3 /uL 03/20/2020 9:25 AM [facility] Lymphocyte Absolute 0.8 0.8 - 2.9 10? 3 /uL 03/20/2020 9:25 AM [facility] Monocytes Absolute 0.69(H) 0.14 - 0.66 10? 3 /uL 03/20/2020 9:25 AM [facility] Eosinophils Absolute 0.37 0.00 - 0.45 10? 3 /uL 03/20/2020 9:25 AM [facility] Basophils Absolute 0.06 0.00 - 0.06 10? 3 /uL 03/20/2020 9:25 AM [facility] Immature Granulocytes % 5.0(H) 0.0 - 1.0 % 03/20/2020 9:25 AM [facility] Blood BLOOD SPECIMEN / Unknown Lab Venipuncture / Unknown 03/20/2020 8:44 AM CDT 03/20/2020 9:04 AM CDT Tiffanie Nguyen BURN TABLE OPERATOR-QUALITY PROCESS ENGINEER LAB - HEMATOLOG Y ORDERABLES [address] [address], [facility] [phone] * (ABNORMAL) DIFFERENTIAL MANUAL (03/18/2020 11:57 PM CDT) WBC (corrected for NRBC) 16.8 10? 3 /uL 03/19/2020 1:30 AM [facility] Total Cell Count 100 03/19/20 20 1:30 AM [facility] Neutrophils Absolute Manual 15.96(H) 1.60 - 7.00 10? 3 /uL 03/19/2020 1:30 AM [facility] Comment:(BANDS+SEGS) x WBC = NEUT # (ANC) Lymphocyte Absolute Manual 0.17(L) 0.80 - 2.90 10? 3 /uL 03/19/2020 1:30 AM [facility] Monocytes Absolute Manual 0.50 0.14 - 0.66 10? 3 /uL 03/19/2020 1:30 AM [facility] Neutrophil % Manual 95(H) 30 - 60 % 03/19/2020 1:30 AM [facility] Lymphocyte % Manual 1(L) 20 - 45 % 03/19/2020 1:30 AM [facility] Monocytes % Manual 3 2 - 10 % 03/19/2020 1:30 AM [facility] Metamyelocyte % Manual 1(H) 0 % 03/19/2020 1:30 AM [facility] nRBC Manual 10(H) 0 /100 WBC 03/19/2020 1:30 AM [facility] Platelet Estimate Adequate Adequate 020 1:30 AM [facility] Anisocytosis 1+(A) None 03/19/2020 1:30 AM [facility] Hypochromia 1+(A) None 03/19/2020 1:30 AM [facility] Target Cells 1+(A) None 03/19/2020 1:30 AM [facility] Blood BLOOD SPECIMEN / Unknown Lab Venipuncture / Unknown 03/18/2020 11:57 PM CDT 03/19/2020 12:31 AM CDT Tiffanie Nguyen [facility] LAB - HEMATOLOG Y ORDERABLES [address] [address], [facility] [phone] * (ABNORMAL) C-REACTIVE PROTEIN (03/18/2020 11:57 PM CDT) C-Reactive Protein 1.2(H) <=0.5 mg/dL 03/19/2020 12:58 AM CDT [facility] Blood BLOOD SPECIMEN / Unknown Lab Venipuncture / Unknown 03/18/2020 11:57 PM CDT 03/19/2020 12:31 AM CDT Savanah Bolton [facility] LAB - CHEMISTRY ORDE RABLES [address] [address], [facility] [phone] * PHOSPHORUS BLOOD (03/18/2020 11:57 PM CDT) Phosphorus 3.4 2.3 - 4.7 mg/dL 03/19/2020 1:13 AM CDT [facility] Blood BLOOD SPECIMEN / Unknown Lab Venipuncture / Unknown 03/18/2020 11:57 PM CDT 03/19/2020 12:31 AM CDT Tiffanie Nguyen [facility] LAB - CHEMISTRY ORDERABLES [address] [address], [facility] [phone] * MAGNESIUM BLOOD (03/18/2020 11:57 PM CDT) Magnesium 2.0 1.6 - 2.6 mg/dL 03/19/2020 1:13 AM CDT [facility] Blood BLOOD SPECIMEN / Unknown Lab Venipuncture / Unknown 03/18/2020 11:57 PM CDT 03/19/2020 12:31 AM CDT Tiffanie Nguyen BURN TABLE OPERATOR-QUALITY PROCESS ENGINEER LAB - CHEMISTRY ORDERABLES [address] [address], [facility] [phone] * (ABNORMAL) COMPREHENSIVE METABOLIC PANEL (03/18/2020 11:57 PM CDT) BUN 19 7 - 26 mg/dL 03/19/2020 1:13 AM [facility] Creatinine 0.8 0.6 - 1.2 mg/dL 03/19/2020 1:13 AM [facility] Sodium 144 136 - 145 mmol/L 03/19/2020 1:13 AM [facility] Potassium 4.3 3.5 - 4.5 mmol/L 03/19/2020 1:13 AM [facility] Chloride 100 98 - 107 mmol/L 03/19/2020 1:13 AM [facility] CO2 28 22 - 29 mmol/L 03/19/2020 1:13 AM [facility] Glucose 129(H) 70 - 115 mg/dL 03/19/2020 1:13 AM [facility] Calcium 8.3(L) 8.4 - 10.2 mg/dL 03/19/2020 1:13 AM [facility] Protein Total 5.4(L) 6.0 - 8.3 g/dL 03/19/2020 1:13 AM [facility] Albumin 2.4(L) 3.4 - 5.0 g/dL 03/19/2020 1:13 AM [facility] Bilirubin Total 0.2 0.2 - 1.2 mg/dL 03/19/2020 1:13 AM [facility] Alkaline Phosphatase 99 40 - 150 Units/L 03/19/2020 1:13 AM [facility] ALT 43 0 - 55 Units/L 03/19/2020 1:13 AM [facility] AST 15 5 - 34 Units/L 03/19/2020 1:13 AM [facility] Anion Gap 20(H) 8 - 18 03/19/2020 1:13 AM [facility] BUN/Creatinine Ratio 24(H) 7 - 23 03/19/2020 1:13 AM [facility] Osmolality Calculated 302(H) 270 - 300 mOsm/kg 03/19/2020 1:13 AM [facility] Albumin/Globulin Ratio 0.8(L) 1.1 - 2.3 03/19/2020 1:13 AM [facility] eGFR >60 >60 mL/min/1.7 3 m2 03/19/2020 1:13 AM [facility] Blood BLOOD SPECIMEN / Unknown Lab Venipuncture / Unknown 03/18/2020 11:57 PM CDT 03/19/2020 12:31 AM CDT Lara Patrick BURN TABLE OPERATOR-QUALITY PROCESS ENGINEER LAB - CHEMISTRY ORDERABLES Performing Organization Address City/State/[facility] Co de Phone Number [address] [address] [phone] * (ABNORMAL) CBC W AUTO DIFFERENTIAL (03/18/2020 11:57 PM CDT) WBC 16.8(H) 3.5 - 10.5 10? 3 /uL 03/19/2020 1:01 AM [facility] Comment:The WBC count is cor rected by the instrument for nRBC's RBC 3.42(L) 4.30 - 5.70 10? 6 /uL 03/19/2020 1:01 AM [facility] Hemoglobin 10.0(L) 13.5 - 17.5 g/dL 03/19/2020 1:01 AM [facility] Hematocrit 30.1(L) 39.0 - 50.0 % 03/19/2020 1:01 AM [facility] MCV 88.0 81.0 - 97.0 fL 03/19/2020 1:01 AM [facility] MCH 29.2 28.0 - 34.0 pg 03/19/2020 1:01 AM [facility] MCHC 33.2 32.0 - 36.0 g/dL 03/19/2020 1:01 AM [facility] Platelet Count 188 150 - 400 10? 3 /uL 03/19/2020 1:01 AM [facility] RDW-SD 62.7(H) 36.0 - 50.0 fL 03/19/2020 1:01 AM [facility] RDW-CV 21.2(H) 11.2 - 14.8 % 03/19/2020 1:01 AM [facility] MPV 03/19/2020 1:01 AM [facility] Comment:NOT MEASURED nRBC Absolute 1.83(H) 0 10? 3 /uL 03/19/2020 1:01 AM [facility] nRBC Auto 10.9(H) 0 /100 WBC 03/19/2020 1:01 AM [facility] Blood BLOOD SPECIMEN / Unknown Lab Venipuncture / Unknown 03/18/2020 11:57 PM CDT 03/19/2020 12:31 AM CDT Tiffanie Nguyen APRN-QUALITY PROCESS ENGINEER LAB - HEMATOLOG Y ORDERABLES [place] [phone] [phone] * (ABNORMAL) RBC MORPHOLOGY (03/18/2020 12:14 AM CDT) Anisocytosis 1+(A) None 03/18/2020 2:31 AM CDT [facility] Macrocytosis 1+(A) None 03/18/2020 2:31 AM T [facility] Target Cells 2+(A) None 03/18/2020 2:31 AM T [facility] Schistocytes Occasional (A) None 03/18/2020 2:31 AM T [facility] Blood BLOOD SPECIMEN / Unknown Lab Venipuncture / Unknown 03/18/2020 12:14 AM CDT 03/18/2020 1:05 AM CDT Tiffanie Nguyen BURN TABLE OPERATOR-QUALITY PROCESS ENGINEER LAB - HEMATOLOG Y ORDERABLES [address] [address], [facility] [phone] * (ABNORMAL) C-REACTIVE PROTEIN (03/18/2020 12:14 AM CDT) C-Reactive Protein 0.7(H) <=0.5 mg/dL 03/18/2020 1:25 AM CDT [facility] Blood BLOOD SPECIMEN / Unknown Lab Venipuncture / Unknown 03/18/2020 12:14 AM CDT 03/18/2020 1:05 AM CDT Savanah MIMS LAB - CHEMISTRY ORDSharon [place] Performing Organization Address [facility]/State/ZIP [place] [address], [facility] [phone] * (ABNORMAL) LDH BLOOD (03/18/2020 12:14 AM CDT) LDH Total 384(H) 125 - 243 Units/L 03/18/2020 1:38 AM CDT [facility] Blood BLOOD SPECIMEN / Unknown Lab Venipuncture / Unknown 03/18/2020 12:14 AM CDT 03/18/2020 1:05 AM CDT Kenneth Martins MD LAB - CHEMISTRY CINTHIA [place] Performing Organization Address [facility]/ZIP Co de Phone Number [address] [address], [facility] [phone] * (ABNORMAL) FERRITIN (03/18/2020 12:14 AM CDT) Ferritin 775(H) 22 - 275 ng/mL 03/18/2020 1:47 AM CDT [facility] Blood BLOOD SPECIMEN / Unknown Lab Venipuncture / Unknown 03/18/2020 12:14 AM CDT 03/18/2020 1:05 AM CDT Kenneth Martins MD LAB - CHEMISTRY CINTHIA [place] [address] [address], [facility] [phone] * (ABNORMAL) ERYTHROCYTE SEDIMENTATION RATE (03/18/2020 12:14 AM CDT) [facility] Erythrocyte Sedimentation Rate Westergren 22(H) 0 - 15 MM/HR 03/18/2020 2:31 AM CDT [facility] Blood BLOOD SPECIMEN / Unknown Lab Venipuncture / Unknown 03/18/2020 12:14 AM CDT 03/18/2020 1:05 AM CDT Kenneth Martins MD LAB - HEMATOLOGY ORD ERABLES [address] [address], [facility] [phone] * (ABNORMAL) D-DIMER (03/18/2020 12:14 AM CDT) [facility] D-Dimer Quantitative 1.27(H) <=0.50 mcg/mL FEU 03/18/2020 1:22 AM CDT [facility] Comment: In the absence of clinical [...] - COAGULATION OR DERABLES Performing Organization Address City/[facility]/ZIP Co de Phone Number [place] [address], [facility] [phone] * PHOSPHORUS BLOOD (03/18/2020 12:14 AM CDT) Phosphorus 3.3 2.3 - 4.7 mg/dL 03/18/2020 1:38 AM CDT [facility] Blood BLOOD SPECIMEN / Unknown Lab Venipuncture / Unknown 03/18/2020 12:14 AM CDT 03/18/2020 1:05 AM CDT Tiffanie Nguyen APRN-QUALITY PROCESS ENGINEER LAB - CHEMISTRY ORDERABLES Performing Organization Address [facility] Co de Phone Number [place] [address], [facility] [phone] * MAGNESIUM BLOOD (03/18/2020 12:14 AM CDT) Magnesium 2.0 1.6 - 2.6 mg/dL 03/18/2020 1:38 AM CDT [facility] Blood BLOOD SPECIMEN / Unknown Lab Venipuncture / Unknown 03/18/2020 12:14 AM CDT 03/18/2020 1:05 AM CDT Tiffanie Nguyen BURN TABLE OPERATOR-QUALITY PROCESS ENGINEER LAB - CHEMISTRY ORDERABLES Performing Organization Address [facility] Co de Phone Number [place] [address], [facility] [phone] * (ABNORMAL) COMPREHENSIVE METABOLIC PANEL (03/18/2020 12:14 AM CDT) BUN 21 7 - 26 mg/dL 03/18/2020 1:38 AM [facility] Creatinine 0.8 0.6 - 1.2 mg/dL 03/18/2020 1:38 AM [facility] Sodium 140 136 - 145 mmol/L 03/18/2020 1:38 AM [facility] Potassium 4.8(H) 3.5 - 4.5 mmol/L 03/18/2020 1:38 AM [facility] Chloride 100 98 - 107 mmol/L 03/18/2020 1:38 AM [facility] CO2 28 22 - 29 mmol/L 03/18/2020 1:38 AM [facility] Glucose 124(H) 70 - 115 mg/dL 03/18/2020 1:38 AM [facility] Calcium 8.1(L) 8.4 - 10.2 mg/dL 03/18/2020 1:38 AM [facility] Protein Total 5.4(L) 6.0 - 8.3 g/dL 03/18/2020 1:38 AM [facility] Albumin 2.2(L) 3.4 - 5.0 g/dL 03/18/2020 1:38 AM [facility] Bilirubin Total 0.2 0.2 - 1.2 mg/dL 03/18/2020 1:38 AM [facility] Alkaline Phosphatase 105 40 - 150 Units/L 03/18/2020 1:38 AM [facility] ALT 44 0 - 55 Units/L 03/18/2020 1:38 AM [facility] AST 19 5 - 34 Units/L 03/18/2020 1:38 AM [facility] Anion Gap 17 8 - 18 03/18/2020 1:38 AM [facility] BUN/Creatinine Ratio 26(H) 7 - 23 03/18/2020 1:38 AM [facility] Osmolality Calculated 294 270 - 300 mOsm/kg 03/18/2020 1:38 AM [facility] Albumin/Globulin Ratio 0.7(L) 1.1 - 2.3 03/18/2020 1:38 AM [facility] eGFR >60 >60 mL/min/1.7 3 m2 03/18/2020 1:38 AM [facility] Blood BLOOD SPECIMEN / Unknown Lab Venipuncture / Unknown 03/18/2020 12:14 AM CDT 03/18/2020 1:05 AM CDT Tiffanie Nguyen BURN TABLE OPERATOR-QUALITY PROCESS ENGINEER LAB - CHEMISTRY ORDERABLES Performing Organization Address [facility]/State/ZIP Co de Phone Number [address] [phone], [facility] [phone] * (ABNORMAL) CBC W AUTO DIFFERENTIAL (03/18/2020 12:14 AM CDT) WBC 20.4(H) 3.5 - 10.5 10? 3 /uL 03/18/2020 1:23 AM [facility] Comment:The WBC count is cor rected by the instrument for nRBC's RBC 3.41(L) 4.30 - 5.70 10? 6 /uL 03/18/2020 1:23 AM [facility] Hemoglobin 9.9(L) 13.5 - 17.5 g/dL 03/18/2020 1:23 AM [facility] Hematocrit 29.4(L) 39.0 - 50.0 % 03/18/2020 1:23 AM [facility] MCV 86.2 81.0 - 97.0 fL 03/18/2020 1:23 AM [facility] MCH 29.0 28.0 - 34.0 pg 03/18/2020 1:23 AM [facility] MCHC 33.7 32.0 - 36.0 g/dL 03/18/2020 1:23 AM [facility] Platelet Count 188 150 - 400 10? 3 /uL 03/18/2020 1:23 AM [facility] RDW-SD 58.7(H) 36.0 - 50.0 fL 03/18/2020 1:23 AM [facility] RDW-CV 20.4(H) 11.2 - 14.8 % 03/18/2020 1:23 AM [facility] MPV 03/18/2020 1:23 AM [facility] Comment:Test Not Performed. nRBC Absolute 1.94(H) 0 10? 3 /uL 03/18/2020 1:23 AM [facility] nRBC Auto 9.5(H) 0 /100 WBC 03/18/2020 1:23 AM [facility] Neutrophils % 85.0(H) 35.0 - 70.0 % 03/18/2020 1:23 AM [facility] Lymphocytes % 5.1(L) 19.7 - 55.1 % 03/18/2020 1:23 AM [facility] Monocytes % 5.5 3.0 - 15.0 % 03/18/2020 1:23 AM [facility] Eosinophils % 0.0 0.0 - 6.0 % 03/18/2020 1:23 AM [facility] Basophil % 0.3 0.0 - 1.5 % 03/18/2020 1:23 AM [facility] Neutrophils Absolute 17.3(H) 1.6 - 7.0 10? 3 /uL 03/18/2020 1:23 AM [facility] Lymphocyte Absolute 1.0 0.8 - 2.9 10? 3 /uL 03/18/2020 1:23 AM [facility] Monocytes Absolute 1.12(H) 0.14 - 0.66 10? 3 /uL 03/18/2020 1:23 AM [facility] Eosinophils Absolute 0.01 0.00 - 0.45 10? 3 /uL 03/18/2020 1:23 AM [facility] Basophils Absolute 0.06 0.00 - 0.06 10? 3 /uL 03/18/2020 1:23 AM [facility] Immature Granulocytes % 4.1(H) 0.0 - 1.0 % 03/18/2020 1:23 AM [facility] Blood BLOOD SPECIMEN / Unknown Lab Venipuncture / Unknown 03/18/2020 12:14 AM CDT 03/18/2020 1:05 AM [facility] Tiffanie Nguyen BURN TABLE OPERATOR-QUALITY PROCESS ENGINEER LAB - HEMATOLOG Y ORDERABLES [address] [address], [facility] [phone] * (ABNORMAL) C-REACTIVE PROTEIN (03/16/2020 11:59 PM CDT) C-Reactive Protein 1.1(H) <=0.5 mg/dL 03/17/2020 1:25 AM CDT [facility] Blood BLOOD SPECIMEN / Unknown Lab Venipuncture / Unknown 03/16/2020 11:59 PM CDT 03/17/2020 1:10 AM CDT Savanah Bolton [facility] LAB - CHEMISTRY ORDE RABLES [place] [phone], [facility] [phone] * PHOSPHORUS BLOOD (03/16/2020 11:59 PM CDT) Phosphorus 3.9 2.3 - 4.7 mg/dL 03/17/2020 1:36 AM CDT [facility] Blood BLOOD SPECIMEN / Unknown Lab Venipuncture / Unknown 03/16/2020 11:59 PM CDT 03/17/2020 1:10 AM CDT Lara Patrick [facility] - CHEMISTRY ORDERABLES [address] [address], [facility] [phone] * MAGNESIUM BLOOD (03/16/2020 11:59 PM CDT) Magnesium 2.0 1.6 - 2.6 mg/dL 03/17/2020 1:36 AM CDT [facility] Blood BLOOD SPECIMEN / Unknown Lab Venipuncture / Unknown 03/16/2020 11:59 PM CDT 03/17/2020 1:10 AM CDT Lara Buss [facility] - CHEMISTRY ORDERABLES [address] [address] [phone] * (ABNORMAL) COMPREHENSIVE METABOLIC PANEL (03/16/2020 11:59 PM [facility]) BUN 19 7 - 26 mg/dL 03/17/2020 1:36 AM [facility] Creatinine 0.8 0.6 - 1.2 mg/dL 03/17/2020 1:36 AM [facility] Sodium 138 136 - 145 mmol/L 03/17/2020 1:36 AM [facility] Potassium 4.5 3.5 - 4.5 mmol/L 03/17/2020 1:36 AM [facility] Chloride 98 98 - 107 mmol/L 03/17/2020 1:36 AM [facility] CO2 29 22 - 29 mmol/L 03/17/2020 1:36 AM [facility] Glucose 124(H) 70 - 115 mg/dL 03/17/2020 1:36 AM [facility] Calcium 8.5 8.4 - 10.2 mg/dL 03/17/2020 1:36 AM [facility] Protein Total 5.6(L) 6.0 - 8.3 g/dL 03/17/2020 1:36 AM [facility] Albumin 2.3(L) 3.4 - 5.0 g/dL 03/17/2020 1:36 AM [facility] Bilirubin Total 0.3 0.2 - 1.2 mg/dL 03/17/2020 1:36 AM [facility] Alkaline Phosphatase 106 40 - 150 Units/L 03/17/2020 1:36 AM [facility] ALT 45 0 - 55 Units/L 03/17/2020 1:36 AM [facility] AST 18 5 - 34 Units/L 03/17/2020 1:36 AM [facility] Anion Gap 16 8 - 18 03/17/2020 1:36 AM [facility] BUN/Creatinine Ratio 24(H) 7 - 23 03/17/2020 1:36 AM [facility] Osmolality Calculated 290 270 - 300 mOsm/kg 03/17/2020 1:36 AM [facility] Albumin/Globulin Ratio 0.7(L) 1.1 - 2.3 03/17/2020 1:36 AM [facility] eGFR >60 >60 mL/min/1.7 3 m2 03/17/2020 1:36 AM [facility] Blood BLOOD SPECIMEN / Unknown Lab Venipuncture / Unknown 03/16/2020 11:59 PM CDT 03/17/2020 1:10 AM CDT Tiffanie Nguyen BURN TABLE OPERATOR-QUALITY PROCESS ENGINEER LAB - CHEMISTRY ORDERABLES [address] [address], [facility] [phone] * (ABNORMAL) CBC W AUTO DIFFERENTIAL (03/16/2020 11:59 PM CDT) WBC 18.4(H) 3.5 - 10.5 10? 3 /uL 03/17/2020 1:33 AM [facility] Comment:The WBC count is cor rected by the instrument for nRBC's RBC 3.54(L) 4.30 - 5.70 10? 6 /uL 03/17/2020 1:33 AM [facility] Hemoglobin 10.0(L) 13.5 - 17.5 g/dL 03/17/2020 1:33 AM [facility] Hematocrit 30.1(L) 39.0 - 50.0 % 03/17/2020 1:33 AM [facility] MCV 85.0 81.0 - 97.0 fL 03/17/2020 1:33 AM [facility] MCH 28.2 28.0 - 34.0 pg 03/17/2020 1:33 AM [facility] MCHC 33.2 32.0 - 36.0 g/dL 03/17/2020 1:33 AM [facility] Platelet Count 193 150 - 400 10? 3 /uL 03/17/2020 1:33 AM [facility] RDW-SD 57.3(H) 36.0 - 50.0 fL 03/17/2020 1:33 AM [facility] RDW-CV 19.6(H) 11.2 - 14.8 % 03/17/2020 1:33 AM [facility] MPV 03/17/2020 1:33 AM [facility] Comment:NOT MEASURED nRBC Absolute 1.07(H) 0 10? 3 /uL 03/17/2020 1:33 AM [facility] nRBC Auto 5.8(H) 0 /100 WBC 03/17/2020 1:33 AM [facility] Comment:Confirmed by repeat analysis. Neutrophils % 86.5(H) 35.0 - 70.0 % 03/17/2020 1:33 AM [facility] Lymphocytes % 4.9(L) 19.7 - 55.1 % 03/17/2020 1:33 AM [facility] Monocytes % 4.2 3.0 - 15.0 % 03/17/2020 1:33 AM [facility] Eosinophils % 0.0 0.0 - 6.0 % 03/17/2020 1:33 AM [facility] Basophil % 0.2 0.0 - 1.5 % 03/17/2020 1:33 AM [facility] Neutrophils Absolute 15.9(H) 1.6 - 7.0 10? 3 /uL 03/17/2020 1:33 AM [facility] Lymphocyte Absolute 0.9 0.8 - 2.9 10? 3 /uL 03/17/2020 1:33 AM [facility] Monocytes Absolute 0.77(H) 0.14 - 0.66 10? 3 /uL 03/17/2020 1:33 AM [facility] Eosinophils Absolute 0.00 0.00 - 0.45 10? 3 /uL 03/17/2020 1:33 AM [facility] Basophils Absolute 0.03 0.00 - 0.06 10? 3 /uL 03/17/2020 1:33 AM [facility] Immature Granulocytes % 4.2(H) 0.0 - 1.0 % 03/17/2020 1:33 AM [facility] Blood BLOOD SPECIMEN / Unknown Lab Venipuncture / Unknown 03/16/2020 11:59 PM CDT 03/17/2020 1:10 AM [facility] Tiffanie Nguyen BURN TABLE OPERATOR-QUALITY PROCESS ENGINEER LAB - HEMATOLOG Y ORDERABLES Performing Organization Address [facility]/ZIP Co de Phone Number [address] [address], [facility] [phone] * (ABNORMAL) C-REACTIVE PROTEIN (03/16/2020 12:45 AM CDT) C-Reactive Protein 1.6(H) <=0.5 mg/dL 03/16/2020 1:16 AM CDT [facility] Blood BLOOD SPECIMEN / Unknown Lab Venipuncture / Unknown 03/16/2020 12:45 AM CDT 03/16/2020 12:52 AM CDT Savanah [facility] - CHEMISTRY ORDSharon [place] Performing Organization Address [facility]/ZIP Co de Phone Number [address] [address], [facility] [phone] * (ABNORMAL) LDH BLOOD (03/16/2020 12:45 AM CDT) LDH Total 407(H) 125 - 243 Units/L 03/16/2020 1:15 AM CDT [facility] Blood BLOOD SPECIMEN / Unknown Lab Venipuncture / Unknown 03/16/2020 12:45 AM CDT 03/16/2020 12:52 AM CDT Kenneth Martins MD LAB - CHEMISTRY CINTHIA [place] Performing Organization Address [facility]/ZIP Co de Phone Number [address] [address], [facility] [phone] * (ABNORMAL) FERRITIN (03/16/2020 12:45 AM CDT) Ferritin 688(H) 22 - 275 ng/mL 03/16/2020 1:29 AM CDT [facility] Blood BLOOD SPECIMEN / Unknown Lab Venipuncture / Unknown 03/16/2020 12:45 AM CDT 03/16/2020 12:52 AM CDT Kenneth Martins MD LAB - CHEMISTRY [place]THIA [place] [address] [address] [phone] * (ABNORMAL) ERYTHROCYTE SEDIMENTATION RATE (03/16/2020 12:45 AM CDT) [facility] Erythrocyte Sedimentation Rate Westergren 45(H) 0 - 15 MM/HR 03/16/2020 1:07 AM CDT [facility] Blood BLOOD SPECIMEN / Unknown Lab Venipuncture / Unknown 03/16/2020 12:45 AM CDT 03/16/2020 12:52 AM CDT Kenneth Martins MD LAB - HEMATOLOGY ORD ERABLES Performing Organization Address [facility]/ZIP Co de Phone Number [address] [address], [place] [phone] * (ABNORMAL) D-DIMER (03/16/2020 12:45 AM CDT) [facility] D-Dimer Quantitative 1.68(H) <=0.50 mcg/mL FEU 03/16/2020 1:46 AM CDT [facility] Comment: In the absence of clinical [...] - COAGULATION OR DERABLES Performing Organization Address City/[facility]/ZIP Co de Phone Number [place] [address], [facility] [phone] * PHOSPHORUS BLOOD (03/16/2020 12:45 AM CDT) Phosphorus 3.8 2.3 - 4.7 mg/dL 03/16/2020 1:47 AM CDT [facility] Blood BLOOD SPECIMEN / Unknown Lab Venipuncture / Unknown 03/16/2020 12:45 AM CDT 03/16/2020 12:52 AM CDT Tiffanie Nguyen BURN TABLE OPERATOR-QUALITY PROCESS ENGINEER LAB - CHEMISTRY ORDERABLES Performing Organization Address [facility] de Phone Number [place] [address], [facility] [phone] * MAGNESIUM BLOOD (03/16/2020 12:45 AM CDT) Magnesium 2.3 1.6 - 2.6 mg/dL 03/16/2020 1:15 AM CDT [facility] Blood BLOOD SPECIMEN / Unknown Lab Venipuncture / Unknown 03/16/2020 12:45 AM CDT 03/16/2020 12:52 AM CDT Tiffanie Nguyen BURN TABLE OPERATOR-QUALITY PROCESS ENGINEER LAB - CHEMISTRY ORDERABLES Performing Organization Address [facility] Co de Phone Number [place] [address], [facility] [phone] * (ABNORMAL) COMPREHENSIVE METABOLIC PANEL (03/16/2020 12:45 AM CDT) BUN 18 7 - 26 mg/dL 03/16/2020 1:15 AM [facility] Creatinine 0.7 0.6 - 1.2 mg/dL 03/16/2020 1:15 AM [facility] Sodium 142 136 - 145 mmol/L 03/16/2020 1:15 AM [facility] Potassium 4.6(H) 3.5 - 4.5 mmol/L 03/16/2020 1:15 AM [facility] Chloride 103 98 - 107 mmol/L 03/16/2020 1:15 AM [facility] CO2 28 22 - 29 mmol/L 03/16/2020 1:15 AM [facility] Glucose 134(H) 70 - 115 mg/dL 03/16/2020 1:15 AM [facility] Calcium 8.2(L) 8.4 - 10.2 mg/dL 03/16/2020 1:15 AM [facility] Protein Total 5.2(L) 6.0 - 8.3 g/dL 03/16/2020 1:15 AM [facility] Albumin 2.1(L) 3.4 - 5.0 g/dL 03/16/2020 1:15 AM [facility] Bilirubin Total 0.3 0.2 - 1.2 mg/dL 03/16/2020 1:15 AM [facility] Alkaline Phosphatase 108 40 - 150 Units/L 03/16/2020 1:15 AM [facility] ALT 38 0 - 55 Units/L 03/16/2020 1:15 AM [facility] AST 15 5 - 34 Units/L 03/16/2020 1:15 AM [facility] Anion Gap 16 8 - 18 03/16/2020 1:15 AM [facility] BUN/Creatinine Ratio 26(H) 7 - 23 03/16/2020 1:15 AM [facility] Osmolality Calculated 298 270 - 300 mOsm/kg 03/16/2020 1:15 AM [facility] Albumin/Globulin Ratio 0.7(L) 1.1 - 2.3 03/16/2020 1:15 AM [facility] eGFR >60 >60 mL/min/1.7 3 m2 03/16/2020 1:15 AM [facility] Blood BLOOD SPECIMEN / Unknown Lab Venipuncture / Unknown 03/16/2020 12:45 AM CDT 03/16/2020 12:52 AM CDT Tiffanie Nguyen BURN TABLE OPERATOR-QUALITY PROCESS ENGINEER LAB - CHEMISTRY ORDERABLES [address] [address] [phone] * (ABNORMAL) CBC W AUTO DIFFERENTIAL (03/16/2020 12:45 AM CDT) WBC 17.8(H) 3.5 - 10.5 10? 3 /uL 03/16/2020 1:00 AM [facility] Comment:The WBC count is cor rected by the instrument for nRBC's RBC 3.24(L) 4.30 - 5.70 10? 6 /uL 03/16/2020 1:00 AM [facility] Hemoglobin 9.3(L) 13.5 - 17.5 g/dL 03/16/2020 1:00 AM [facility] Hematocrit 27.4(L) 39.0 - 50.0 % 03/16/2020 1:00 AM [facility] MCV 84.6 81.0 - 97.0 fL 03/16/2020 1:00 AM [facility] MCH 28.7 28.0 - 34.0 pg 03/16/2020 1:00 AM [facility] MCHC 33.9 32.0 - 36.0 g/dL 03/16/2020 1:00 AM [facility] Platelet Count 190 150 - 400 10? 3 /uL 03/16/2020 1:00 AM [facility] RDW-SD 54.3(H) 36.0 - 50.0 fL 03/16/2020 1:00 AM [facility] RDW-CV 18.9(H) 11.2 - 14.8 % 03/16/2020 1:00 AM [facility] MPV 03/16/2020 1:00 AM [facility] Comment:NOT MEASURED nRBC Absolute 0.47(H) 0 10? 3 /uL 03/16/2020 1:00 AM [facility] nRBC Auto 2.6(H) 0 /100 WBC 03/16/2020 1:00 AM [facility] Neutrophils % 87.3(H) 35.0 - 70.0 % 03/16/2020 1:00 AM [facility] Lymphocytes % 5.2(L) 19.7 - 55.1 % 03/16/2020 1:00 AM [facility] Monocytes % 3.5 3.0 - 15.0 % 03/16/2020 1:00 AM [facility] Eosinophils % 0.0 0.0 - 6.0 % 03/16/2020 1:00 AM [facility] Basophil % 0.2 0.0 - 1.5 % 03/16/2020 1:00 AM [facility] Neutrophils Absolute 15.6(H) 1.6 - 7.0 10? 3 /uL 03/16/2020 1:00 AM [facility] Lymphocyte Absolute 0.9 0.8 - 2.9 10? 3 /uL 03/16/2020 1:00 AM [facility] Monocytes Absolute 0.62 0.14 - 0.66 10? 3 /uL 03/16/2020 1:00 AM [facility] Eosinophils Absolute 0.00 0.00 - 0.45 10? 3 /uL 03/16/2020 1:00 AM [facility] Basophils Absolute 0.03 0.00 - 0.06 10? 3 /uL 03/16/2020 1:00 AM [facility] Immature Granulocytes % 3.8(H) 0.0 - 1.0 % 03/16/2020 1:00 AM [facility] Blood BLOOD SPECIMEN / Unknown Lab Venipuncture / Unknown 03/16/2020 12:45 AM CDT 03/16/2020 12:52 AM T Tiffanie Nguyen BURN TABLE OPERATOR-QUALITY PROCESS ENGINEER LAB - HEMATOLOG Y ORDERABLES [facility] [address] [place] [address] [phone] * (ABNORMAL) C-REACTIVE PROTEIN (03/15/2020 12:27 AM CDT) C-Reactive Protein 2.4(H) <=0.5 mg/dL 03/15/2020 1:45 AM CDT [facility] Blood BLOOD SPECIMEN / Unknown Lab Venipuncture / Unknown 03/15/2020 12:27 AM CDT 03/15/2020 1:35 AM CDT Joe Dennison MD LAB - CHEMISTRY [place] [address], [facility] [phone] * PHOSPHORUS BLOOD (03/15/2020 12:27 AM CDT) Phosphorus 2.6 2.3 - 4.7 mg/dL 03/15/2020 1:09 AM CDT [facility] Blood BLOOD SPECIMEN / Unknown Lab Venipuncture / Unknown 03/15/2020 12:27 AM CDT 03/15/2020 12:53 AM CDT Tiffanie Nguyen APRN-QUALITY PROCESS ENGINEER LAB - CHEMISTRY ORDERABLES [address] [address], [facility] [phone] * MAGNESIUM BLOOD (03/15/2020 12:27 AM CDT) Magnesium 1.9 1.6 - 2.6 mg/dL 03/15/2020 1:09 AM CDT [facility] Blood BLOOD SPECIMEN / Unknown Lab Venipuncture / Unknown 03/15/2020 12:27 AM CDT 03/15/2020 12:53 AM CDT Tiffanie Nguyen BURN TABLE OPERATOR-QUALITY PROCESS ENGINEER LAB - CHEMISTRY ORDERABLES [place] [phone] [phone] * (ABNORMAL) COMPREHENSIVE METABOLIC PANEL (03/15/2020 12:27 AM [facility]) BUN 13 7 - 26 mg/dL 03/15/2020 1:09 AM [facility] Creatinine 0.8 0.6 - 1.2 mg/dL 03/15/2020 1:09 AM [facility] Sodium 140 136 - 145 mmol/L 03/15/2020 1:09 AM [facility] Potassium 4.4 3.5 - 4.5 mmol/L 03/15/2020 1:09 AM [facility] Chloride 104 98 - 107 mmol/L 03/15/2020 1:09 AM [facility] CO2 27 22 - 29 mmol/L 03/15/2020 1:09 AM [facility] Glucose 124(H) 70 - 115 mg/dL 03/15/2020 1:09 AM [facility] Calcium 7.7(L) 8.4 - 10.2 mg/dL 03/15/2020 1:09 AM [facility] Protein Total 5.1(L) 6.0 - 8.3 g/dL 03/15/2020 1:09 AM [facility] Albumin 1.9(L) 3.4 - 5.0 g/dL 03/15/2020 1:09 AM [facility] Bilirubin Total 0.3 0.2 - 1.2 mg/dL 03/15/2020 1:09 AM [facility] Alkaline Phosphatase 114 40 - 150 Units/L 03/15/2020 1:09 AM [facility] ALT 40 0 - 55 Units/L 03/15/2020 1:09 AM [facility] AST 13 5 - 34 Units/L 03/15/2020 1:09 AM [facility] Anion Gap 13 8 - 18 03/15/2020 1:09 AM [facility] BUN/Creatinine Ratio 16 7 - 23 03/15/2020 1:09 AM [facility] Osmolality Calculated 292 270 - 300 mOsm/kg 03/15/2020 1:09 AM [facility] Albumin/Globulin Ratio 0.6(L) 1.1 - 2.3 03/15/2020 1:09 AM [facility] eGFR >60 >60 mL/min/1.7 3 m2 03/15/2020 1:09 AM [facility] Blood BLOOD SPECIMEN / Unknown Lab Venipuncture / Unknown 03/15/2020 12:27 AM CDT 03/15/2020 12:53 AM CDT Tiffanie Nguyen BURN TABLE OPERATOR-QUALITY PROCESS ENGINEER LAB - CHEMISTRY ORDERABLES [address] [address], [facility] [phone] * (ABNORMAL) CBC W AUTO DIFFERENTIAL (03/15/2020 12:27 AM [facility]) WBC 17.9(H) 3.5 - 10.5 10? 3 /uL 03/15/2020 12:59 AM [facility] Comment:The WBC count is cor rected by the instrument for nRBC's RBC 3.09(L) 4.30 - 5.70 10? 6 /uL 03/15/2020 12:59 AM [facility] Hemoglobin 8.8(L) 13.5 - 17.5 g/dL 03/15/2020 12:59 AM [facility] Hematocrit 26.2(L) 39.0 - 50.0 % 03/15/2020 12:59 AM [facility] MCV 84.8 81.0 - 97.0 fL 03/15/2020 12:59 AM [facility] MCH 28.5 28.0 - 34.0 pg 03/15/2020 12:59 AM [facility] MCHC 33.6 32.0 - 36.0 g/dL 03/15/2020 12:59 AM [facility] Platelet Count 181 150 - 400 10? 3 /uL 03/15/2020 12:59 AM [facility] RDW-SD 54.0(H) 36.0 - 50.0 fL 03/15/2020 12:59 AM [facility] RDW-CV 18.3(H) 11.2 - 14.8 % 03/15/2020 12:59 AM [facility] MPV 13.8(H) 9.3 - 12.8 fL 03/15/2020 12:59 AM [facility] nRBC Absolute 0.34(H) 0 10? 3 /uL 03/15/2020 12:59 AM [facility] nRBC Auto 1.9(H) 0 /100 WBC 03/15/2020 12:59 AM [facility] Neutrophils % 89.7(H) 35.0 - 70.0 % 03/15/2020 12:59 AM [facility] Lymphocytes % 3.1(L) 19.7 - 55.1 % 03/15/2020 12:59 AM [facility] Monocytes % 3.3 3.0 - 15.0 % 03/15/2020 12:59 AM [facility] Eosinophils % 0.1 0.0 - 6.0 % 03/15/2020 12:59 AM [facility] Basophil % 0.1 0.0 - 1.5 % 03/15/2020 12:59 AM [facility] Neutrophils Absolute 16.0(H) 1.6 - 7.0 10? 3 /uL 03/15/2020 12:59 AM [facility] Lymphocyte Absolute 0.6(L) 0.8 - 2.9 10? 3 /uL 03/15/2020 12:59 AM [facility] Monocytes Absolute 0.59 0.14 - 0.66 10? 3 /uL 03/15/2020 12:59 AM [facility] Eosinophils Absolute 0.01 0.00 - 0.45 10? 3 /uL 03/15/2020 12:59 AM [facility] Basophils Absolute 0.02 0.00 - 0.06 10? 3 /uL 03/15/2020 12:59 AM [facility] Immature Granulocytes % 3.7(H) 0.0 - 1.0 % 03/15/2020 12:59 AM [facility] Blood BLOOD SPECIMEN / Unknown Lab Venipuncture / Unknown 03/15/2020 12:27 AM CDT 03/15/2020 12:53 AM T Laragiovanna Nguyen APRN-QUALITY PROCESS ENGINEER LAB - HEMATOLOG Y ORDERABLES [address] [address], [facility] [phone] * (ABNORMAL) C-REACTIVE PROTEIN (03/14/2020 4:35 AM CDT) [facility] C-Reactive Protein 4.0(H) <=0.5 mg/dL 03/14/2020 5:12 AM T [facility] Blood BLOOD SPECIMEN / Unknown Venipuncture / Unknown 03/14/2020 4:35 AM CDT 03/14/2020 4:38 AM CDT Joe Dennison MD LAB - CHEMISTRY CINTHIA [place] Performing Organization Address City/[facility]/ZIP Co de Phone Number [address] [address], [facility] [phone] * (ABNORMAL) DIFFERENTIAL MANUAL (03/14/2020 12:23 AM CDT) [facility] WBC (corrected for NRBC) 20.8 10? 3 /uL 03/14/2020 1:27 AM [facility] Total Cell Count 100 03/14/20 20 1:27 AM [facility] Neutrophils Absolute Manual 20.38(H) 1.60 - 7.00 10? 3 /uL 03/14/2020 1:27 AM [facility] Comment:(BANDS+SEGS) x WBC = NEUT # (ANC) Lymphocyte Absolute Manual 0.21(L) 0.80 - 2.90 10? 3 /uL 03/14/2020 1:27 AM [facility] Monocytes Absolute Manual 0.21 0.14 - 0.66 10? 3 /uL 03/14/2020 1:27 AM [facility] Neutrophil % Manual 98(H) 30 - 60 % 03/14/2020 1:27 AM [facility] Lymphocyte % Manual 1(L) 20 - 45 % 03/14/2020 1:27 AM [facility] Monocytes % Manual 1(L) 2 - 10 % 03/14/2020 1:27 AM [facility] Platelet Estimate Adequate Adequate 03/14/2020 1:27 AM CDT [facility] Anisocytosis 1+(A) None 03/14/2020 1:27 AM CDT [facility] Polychromasia Occasional( A) None 03/14/2020 1:27 AM CDT [facility] Blank-Evening Shade Bodies Occasional( A) None 03/14/2020 1:27 AM CDT [facility] Target Cells 1+(A) None 03/14/2020 1:27 AM CDT [facility] Ovalocytes 1+(A) None 03/14/2020 1:27 AM CDT [facility] Blood BLOOD SPECIMEN / Unknown Venipuncture / Unknown 03/14/2020 12:23 AM CDT 03/14/2020 12:42 AM CDT Tiffanie Nguyen APRN-QUALITY PROCESS ENGINEER LAB - HEMATOLOG Y ORDERABLES [place] [address], [facility] [phone] * (ABNORMAL) LDH BLOOD (03/14/2020 12:23 AM CDT) LDH Total 435(H) 125 - 243 Units/L 03/14/2020 1:05 AM CDT [facility] Blood BLOOD SPECIMEN / Unknown Venipuncture / Unknown 03/14/2020 12:23 AM CDT 03/14/2020 12:42 AM CDT Kenneth Martins MD LAB - CHEMISTRY CINTHIA [place] [address] [address], [facility] [phone] * (ABNORMAL) FERRITIN (03/14/2020 12:23 AM CDT) Ferritin 782(H) 22 - 275 ng/mL 03/14/2020 1:27 AM CDT [facility] Blood BLOOD SPECIMEN / Unknown Venipuncture / Unknown 03/14/2020 12:23 AM CDT 03/14/2020 12:42 AM CDT Kenneth Martins MD LAB - CHEMISTRY ORDE CHELA Performing Organization Address [facility]/ZIP Co de Phone Number [address] [address], [facility] [phone] * (ABNORMAL) ERYTHROCYTE SEDIMENTATION RATE (03/14/2020 12:23 AM CDT) Erythrocyte Sedimentation Rate Westergren 60(H) 0 - 15 MM/HR 03/14/2020 1:01 AM CDT [facility] Blood BLOOD SPECIMEN / Unknown Venipuncture / Unknown 03/14/2020 12:23 AM CDT 03/14/2020 12:42 AM CDT Kenneth Martins MD LAB - HEMATOLOGY ORD ERABLES Performing Organization Address [facility] Co de Phone Number [address] [address], [facility] [phone] * (ABNORMAL) D-DIMER (03/14/2020 12:23 AM CDT) D-Dimer Quantitative 2.13(H) <=0.50 mcg/mL FEU 03/14/2020 12:56 AM CDT [facility] Comment: In the absence of clinical [...] Martins MD LAB - COAGULATION OR DERABLES [place] [address], [facility] [phone] * PHOSPHORUS BLOOD (03/14/2020 12:23 AM CDT) Phosphorus 3.4 2.3 - 4.7 mg/dL 03/14/2020 1:05 AM CDT [facility] Blood BLOOD SPECIMEN / Unknown Venipuncture / Unknown 03/14/2020 12:23 AM CDT 03/14/2020 12:42 AM CDT Tiffanie Nguyen APRN-QUALITY PROCESS ENGINEER LAB - CHEMISTRY ORDERABLES Performing Organization Address [facility]/ZIP Co de Phone Number [address], [facility] [phone] * MAGNESIUM BLOOD (03/14/2020 12:23 AM CDT) Magnesium 2.4 1.6 - 2.6 mg/dL 03/14/2020 1:05 AM CDT [facility] Blood BLOOD SPECIMEN / Unknown Venipuncture / Unknown 03/14/2020 12:23 AM CDT 03/14/2020 12:42 AM CDT Tiffanie Nguyen BURN TABLE OPERATOR-QUALITY PROCESS ENGINEER LAB - CHEMISTRY ORDERABLES Performing Organization Address City/[facility]/ZIP Co de Phone Number [place] [address], [facility] [phone] * (ABNORMAL) COMPREHENSIVE METABOLIC PANEL (03/14/2020 12:23 AM [facility]) BUN 21 7 - 26 mg/dL 03/14/2020 1:05 AM [facility] Creatinine 0.6 0.6 - 1.2 mg/dL 03/14/2020 1:05 AM [facility] Sodium 142 136 - 145 mmol/L 03/14/2020 1:05 AM [facility] Potassium 3.9 3.5 - 4.5 mmol/L 03/14/2020 1:05 AM [facility] Chloride 105 98 - 107 mmol/L 03/14/2020 1:05 AM [facility] CO2 28 22 - 29 mmol/L 03/14/2020 1:05 AM [facility] Glucose 143(H) 70 - 115 mg/dL 03/14/2020 1:05 AM [facility] Calcium 8.1(L) 8.4 - 10.2 mg/dL 03/14/2020 1:05 AM [facility] Protein Total 4.8(L) 6.0 - 8.3 g/dL 03/14/2020 1:05 AM [facility] Albumin 2.0(L) 3.4 - 5.0 g/dL 03/14/2020 1:05 AM [facility] Bilirubin Total 0.4 0.2 - 1.2 mg/dL 03/14/2020 1:05 AM [facility] Alkaline Phosphatase 125 40 - 150 Units/L 03/14/2020 1:05 AM [facility] ALT 49 0 - 55 Units/L 03/14/2020 1:05 AM [facility] AST 16 5 - 34 Units/L 03/14/2020 1:05 AM [facility] Anion Gap 13 8 - 18 03/14/2020 1:05 AM [facility] BUN/Creatinine Ratio 35(H) 7 - 23 03/14/2020 1:05 AM [facility] Osmolality Calculated 299 270 - 300 mOsm/kg 03/14/2020 1:05 AM [facility] Albumin/Globulin Ratio 0.7(L) 1.1 - 2.3 03/14/2020 1:05 AM [facility] eGFR >60 >60 mL/min/1.7 3 m2 03/14/2020 1:05 AM [facility] Blood BLOOD SPECIMEN / Unknown Venipuncture / Unknown 03/14/2020 12:23 AM CDT 03/14/2020 12:42 AM CDT Tiffanie Nguyen BURN TABLE OPERATOR-QUALITY PROCESS ENGINEER LAB - CHEMISTRY ORDERABLES [address] [address], [facility] [phone] * (ABNORMAL) CBC W AUTO DIFFERENTIAL (03/14/2020 12:23 AM T) WBC 20.8(H) 3.5 - 10.5 10? 3 /uL 03/14/2020 12:53 AM [facility] RBC 3.19(L) 4.30 - 5.70 10? 6 /uL 03/14/2020 12:53 AM [facility] Hemoglobin 9.1(L) 13.5 - 17.5 g/dL 03/14/2020 12:53 AM [facility] Hematocrit 26.8(L) 39.0 - 50.0 % 03/14/2020 12:53 AM [facility] MCV 84.0 81.0 - 97.0 fL 03/14/2020 12:53 AM [facility] MCH 28.5 28.0 - 34.0 pg 03/14/2020 12:53 AM [facility] MCHC 34.0 32.0 - 36.0 g/dL 03/14/2020 12:53 AM [facility] Platelet Count 215 150 - 400 10? 3 /uL 03/14/2020 12:53 AM [facility] RDW-SD 52.7(H) 36.0 - 50.0 fL 03/14/2020 12:53 AM [facility] RDW-CV 18.0(H) 11.2 - 14.8 % 03/14/2020 12:53 AM [facility] MPV 12.9(H) 9.3 - 12.8 fL 03/14/2020 12:53 AM CDT [facility] nRBC Absolute 0.19(H) 0 10? 3 /uL 03/14/2020 12:53 AM CDT [facility] nRBC Auto 0.9(H) 0 /100 WBC 03/14/2020 12:53 AM CDT [facility] Blood BLOOD SPECIMEN / Unknown Venipuncture / Unknown 03/14/2020 12:23 AM CDT 03/14/2020 12:42 AM CDT Tiffanie Nguyen BURN TABLE OPERATOR-QUALITY PROCESS ENGINEER LAB - HEMATOLOG Y ORDERABLES [address], [facility] [phone] * (ABNORMAL) IGG BLOOD (03/13/2020 1:46 PM CDT) IgG 162(L) 540-1,822 mg/dL 03/13/2020 2:40 PM CDT [facility] Blood BLOOD SPECIMEN / Unknown 03/13/2020 1:46 PM CDT 03/13/2020 2:16 PM CDT Arnold Cutler DO LAB - CHEMISTRY [place] Performing Organization Address City/[facility]/ZIP Co de Phone Number [place] [phone], [facility] [phone] * (ABNORMAL) C-REACTIVE PROTEIN (03/13/2020 3:43 AM CDT) C-Reactive Protein 8.0(H) <=0.5 mg/dL 03/13/2020 4:19 AM CDT [facility] Blood BLOOD SPECIMEN / Unknown Venipuncture / Unknown 03/13/2020 3:43 AM CDT 03/13/2020 3:47 AM CDT Joe Dennison MD LAB - CHEMISTRY [place] [address] [address], [place] [phone] * PHOSPHORUS BLOOD (03/13/2020 12:13 AM CDT) Phosphorus 3.3 2.3 - 4.7 mg/dL 03/13/2020 12:38 AM CDT [facility] Blood BLOOD SPECIMEN / Unknown Venipuncture / Unknown 03/13/2020 12:13 AM CDT 03/13/2020 12:16 AM CDT Tiffanie Nguyen APRN-QUALITY PROCESS ENGINEER LAB - CHEMISTRY ORDERABLES [address] [phone] * MAGNESIUM BLOOD (03/13/2020 12:13 AM CDT) Magnesium 2.0 1.6 - 2.6 mg/dL 03/13/2020 12:38 AM T [facility] Blood BLOOD SPECIMEN / Unknown Venipuncture / Unknown 03/13/2020 12:13 AM CDT 03/13/2020 12:16 AM CDT Tiffanie Nguyen BURN TABLE [facility] LAB - CHEMISTRY ORDERABLES [address] [phone] * (ABNORMAL) COMPREHENSIVE METABOLIC PANEL (03/13/2020 12:13 AM CDT) BUN 25 7 - 26 mg/dL 03/13/2020 12:38 AM CDT [facility] Creatinine 0.7 0.6 - 1.2 mg/dL 03/13/2020 12:38 AM T [facility] Sodium 142 136 - 145 mmol/L 03/13/2020 12:38 AM T [facility] Potassium 3.9 3.5 - 4.5 mmol/L 03/13/2020 12:38 AM T [facility] Chloride 105 98 - 107 mmol/L 03/13/2020 12:38 AM [facility] CO2 26 22 - 29 mmol/L 03/13/2020 12:38 AM [facility] Glucose 142(H) 70 - 115 mg/dL 03/13/2020 12:38 AM [facility] Calcium 8.1(L) 8.4 - 10.2 mg/dL 03/13/2020 12:38 AM [facility] Protein Total 5.0(L) 6.0 - 8.3 g/dL 03/13/2020 12:38 AM [facility] Albumin 2.0(L) 3.4 - 5.0 g/dL 03/13/2020 12:38 AM [facility] Bilirubin Total 0.3 0.2 - 1.2 mg/dL 03/13/2020 12:38 AM [facility] Alkaline Phosphatase 125 40 - 150 Units/L 03/13/2020 12:38 AM [facility] ALT 58(H) 0 - 55 Units/L 03/13/2020 12:38 AM [facility] AST 23 5 - 34 Units/L 03/13/2020 12:38 AM [facility] Anion Gap 15 8 - 18 03/13/2020 12:38 AM [facility] BUN/Creatinine Ratio 36(H) 7 - 23 03/13/2020 12:38 AM [facility] Osmolality Calculated 301(H) 270 - 300 mOsm/kg 03/13/2020 12:38 AM [facility] Albumin/Globulin Ratio 0.7(L) 1.1 - 2.3 03/13/2020 12:38 AM [facility] eGFR >60 >60 mL/min/1.7 3 m2 03/13/2020 12:38 AM [facility] Blood BLOOD SPECIMEN / Unknown Venipuncture / Unknown 03/13/2020 12:13 AM CDT 03/13/2020 12:16 AM [facility] Tiffanie Nguyen BURN TABLE OPERATOR-QUALITY PROCESS ENGINEER LAB - CHEMISTRY ORDERABLES [address] [address], [facility] [phone] * (ABNORMAL) CBC W AUTO DIFFERENTIAL (03/13/2020 12:13 AM [facility]) WBC 21.7(H) 3.5 - 10.5 10? 3 /uL 03/13/2020 12:33 AM [facility] Comment:All CBC parameters h ave been checked. RBC 3.36(L) 4.30 - 5.70 10? 6 /uL 03/13/2020 12:33 AM [facility] Hemoglobin 9.7(L) 13.5 - 17.5 g/dL 03/13/2020 12:33 AM [facility] Hematocrit 28.1(L) 39.0 - 50.0 % 03/13/2020 12:33 AM [facility] MCV 83.6 81.0 - 97.0 fL 03/13/2020 12:33 AM [facility] MCH 28.9 28.0 - 34.0 pg 03/13/2020 12:33 AM [facility] MCHC 34.5 32.0 - 36.0 g/dL 03/13/2020 12:33 AM [facility] Platelet Count 221 150 - 400 10? 3 /uL 03/13/2020 12:33 AM [facility] RDW-SD 51.4(H) 36.0 - 50.0 fL 03/13/2020 12:33 AM [facility] RDW-CV 17.4(H) 11.2 - 14.8 % 03/13/2020 12:33 AM [facility] MPV 12.5 9.3 - 12.8 fL 03/13/2020 12:33 AM [facility] nRBC Absolute 0.13(H) 0 10? 3 /uL 03/13/2020 12:33 AM [facility] nRBC Auto 0.6(H) 0 /100 WBC 03/13/2020 12:33 AM [facility] Neutrophils % 92.4(H) 35.0 - 70.0 % 03/13/2020 12:33 AM [facility] Lymphocytes % 2.7(L) 19.7 - 55.1 % 03/13/2020 12:33 AM [facility] Monocytes % 3.1 3.0 - 15.0 % 03/13/2020 12:33 AM [facility] Eosinophils % 0.0 0.0 - 6.0 % 03/13/2020 12:33 AM [facility] Basophil % 0.1 0.0 - 1.5 % 03/13/2020 12:33 AM [facility] Neutrophils Absolute 20.1(H) 1.6 - 7.0 10? 3 /uL 03/13/2020 12:33 AM [facility] Lymphocyte Absolute 0.6(L) 0.8 - 2.9 10? 3 /uL 03/13/2020 12:33 AM [facility] Monocytes Absolute 0.67(H) 0.14 - 0.66 10? 3 /uL 03/13/2020 12:33 AM [facility] Eosinophils Absolute 0.00 0.00 - 0.45 10? 3 /uL 03/13/2020 12:33 AM [facility] Basophils Absolute 0.02 0.00 - 0.06 10? 3 /uL 03/13/2020 12:33 AM [facility] Immature Granulocytes % 1.7(H) 0.0 - 1.0 % 03/13/2020 12:33 AM [facility] Blood BLOOD SPECIMEN / Unknown Venipuncture / Unknown 03/13/2020 12:13 AM CDT 03/13/2020 12:16 AM CDT Tiffanie Nguyen BURN TABLE OPERATOR-QUALITY PROCESS ENGINEER LAB - HEMATOLOG Y ORDERABLES Performing Organization Address City/State/[facility] Co de Phone Number [address] [address] [phone] * (ABNORMAL) C-REACTIVE PROTEIN (03/12/2020 5:22 AM CDT) C-Reactive Protein 17.3(H) <=0.5 mg/dL 03/12/2020 5:54 AM T [facility] Blood BLOOD SPECIMEN / Unknown Venipuncture / Unknown 03/12/2020 5:22 AM CDT 03/12/2020 5:34 AM CDT Joe Dennison MD LAB - CHEMISTRY [facility] [place] [facility] Organization Address City/State/ZIP Co de Phone Number [facility] [address] [place] [address], [facility] [phone] * (ABNORMAL) DIFFERENTIAL MANUAL (03/12/2020 12:36 AM CDT) WBC (corrected for NRBC) 14.3 10? 3 /uL 03/12/2020 2:49 AM T [facility] Total Cell Count 100 03/12/20 20 2:49 AM [facility] Neutrophils Absolute Manual 13.73(H) 1.60 - 7.00 10? 3 /uL 03/12/2020 2:49 AM [facility] Comment:(BANDS+SEGS) x WBC = NEUT # (ANC) Lymphocyte Absolute Manual 0.43(L) 0.80 - 2.90 10? 3 /uL 03/12/2020 2:49 AM T [facility] Monocytes Absolute Manual 0.14 0.14 - 0.66 10? 3 /uL 03/12/2020 2:49 AM [facility] Band % Manual 5 0 - 10 % 03/12/2020 2:49 AM [facility] Neutrophil % Manual 91(H) 30 - 60 % 03/12/2020 2:49 AM [facility] Lymphocyte % Manual 3(L) 20 - 45 % 03/12/2020 2:49 AM [facility] Monocytes % Manual 1(L) 2 - 10 % 03/12/2020 2:49 AM [facility] nRBC Manual 2(H) 0 /100 WBC 03/12/2020 2:49 AM [facility] Platelet Estimate Adequate Adequate 03/12/2020 2:49 AM [facility] Polychromasia Occasional( A) None 03/12/2020 2:49 AM [facility] Blank-Evening Shade Bodies 1+(A) None 03/12/2020 2:49 AM [facility] Target Cells 1+(A) None 03/12/2020 2:49 AM [facility] Blood BLOOD SPECIMEN / Unknown Venipuncture / Unknown 03/12/2020 12:36 AM CDT 03/12/2020 12:51 AM CDT Tiffanie Nguyen BURN TABLE OPERATOR-QUALITY PROCESS ENGINEER LAB - HEMATOLOG Y ORDERABLES [address] [address], [facility] [phone] * (ABNORMAL) LDH BLOOD (03/12/2020 12:36 AM CDT) LDH Total 598(H) 125 - 243 Units/L 03/12/2020 1:16 AM CDT [facility] Blood BLOOD SPECIMEN / Unknown Venipuncture / Unknown 03/12/2020 12:36 AM CDT 03/12/2020 12:51 AM CDT Kenneth Martins MD LAB - CHEMISTRY [place] Performing Organization Address [facility]/ZIP Co de Phone Number [address] [address], [facility] [phone] * (ABNORMAL) FERRITIN (03/12/2020 12:36 AM CDT) Pathologist [facility] Ferritin 2,350(H) 22 - 275 ng/mL 03/12/2020 2:02 AM CDT [facility] Comment:Result obtained by jason hernandez. Blood BLOOD SPECIMEN / Unknown Venipuncture / Unknown 03/12/2020 12:36 AM CDT 03/12/2020 12:51 AM CDT Kenneth Martins MD LAB - CHEMISTRY [place] [address] [address], [facility] [phone] * (ABNORMAL) ERYTHROCYTE SEDIMENTATION RATE (03/12/2020 12:36 AM CDT) Erythrocyte Sedimentation Rate Westergren >130(H) 0 - 15 MM/HR 03/12/2020 1:19 AM CDT [facility] Blood BLOOD SPECIMEN / Unknown Venipuncture / Unknown 03/12/2020 12:36 AM CDT 03/12/2020 12:51 AM CDT Kenneth Martins MD LAB - HEMATOLOGY ORD ERABLES [place] [address] [place] [address], [facility] [phone] * (ABNORMAL) D-DIMER (03/12/2020 12:36 AM CDT) D-Dimer Quantitative 1.80(H) <=0.50 mcg/mL FEU 03/12/2020 1:14 AM CDT [facility] Comment: In the absence of clinical [...] Martins MD LAB - COAGULATION OR DERABLES [address] [address], [place] [phone] * PHOSPHORUS BLOOD (03/12/2020 12:36 AM CDT) Phosphorus 3.6 2.3 - 4.7 mg/dL 03/12/2020 1:16 AM CDT [facility] Blood BLOOD SPECIMEN / Unknown Venipuncture / Unknown 03/12/2020 12:36 AM CDT 03/12/2020 12:51 AM CDT Tiffanie Nguyen BURN TABLE OPERATORPromoJam LAB - CHEMISTRY ORDERABLES Performing Organization Address [facility]/ZIP Co de Phone Number [place] [address], [facility] [phone] * MAGNESIUM BLOOD (03/12/2020 12:36 AM CDT) Magnesium 2.3 1.6 - 2.6 mg/dL 03/12/2020 1:16 AM CDT [facility] Blood BLOOD SPECIMEN / Unknown Venipuncture / Unknown 03/12/2020 12:36 AM CDT 03/12/2020 12:51 AM CDT Tiffanie Alvess BURN TABLE OPERATORPromoJam LAB - CHEMISTRY ORDERABLES Performing Organization Address City/[facility]/ZIP Co de Phone Number [address] [address], [facility] [phone] * (ABNORMAL) COMPREHENSIVE METABOLIC PANEL (03/12/2020 12:36 AM CDT) BUN 25 7 - 26 mg/dL 03/12/2020 1:16 AM CDT [facility] Creatinine 0.8 0.6 - 1.2 mg/dL 03/12/2020 1:16 AM CDT [facility] Sodium 138 136 - 145 mmol/L 03/12/2020 1:16 AM CDT [facility] Potassium 4.4 3.5 - 4.5 mmol/L 03/12/2020 1:16 AM CDT [facility] Chloride 102 98 - 107 mmol/L 03/12/2020 1:16 AM [facility] CO2 26 22 - 29 mmol/L 03/12/2020 1:16 AM [facility] Glucose 119(H) 70 - 115 mg/dL 03/12/2020 1:16 AM [facility] Calcium 8.9 8.4 - 10.2 mg/dL 03/12/2020 1:16 AM [facility] Protein Total 5.8(L) 6.0 - 8.3 g/dL 03/12/2020 1:16 AM [facility] Albumin 2.1(L) 3.4 - 5.0 g/dL 03/12/2020 1:16 AM [facility] Bilirubin Total 0.5 0.2 - 1.2 mg/dL 03/12/2020 1:16 AM [facility] Alkaline Phosphatase 147 40 - 150 Units/L 03/12/2020 1:16 AM [facility] ALT 68(H) 0 - 55 Units/L 03/12/2020 1:16 AM [facility] AST 22 5 - 34 Units/L 03/12/2020 1:16 AM [facility] Anion Gap 14 8 - 18 03/12/2020 1:16 AM [facility] BUN/Creatinine Ratio 31(H) 7 - 23 03/12/2020 1:16 AM [facility] Osmolality Calculated 292 270 - 300 mOsm/kg 03/12/2020 1:16 AM [facility] Albumin/Globulin Ratio 0.6(L) 1.1 - 2.3 03/12/2020 1:16 AM [facility] eGFR >60 >60 mL/min/1.7 3 m2 03/12/2020 1:16 AM [facility] Blood BLOOD SPECIMEN / Unknown Venipuncture / Unknown 03/12/2020 12:36 AM CDT 03/12/2020 12:51 AM [facility] Tiffanie Nguyen BURN TABLE OPERATOR-QUALITY PROCESS ENGINEER LAB - CHEMISTRY ORDERABLES Performing Organization Address [facility]/State/ZIP Co de Phone Number [address] [address] [phone] * (ABNORMAL) CBC W AUTO DIFFERENTIAL (03/12/2020 12:36 AM CDT) WBC 14.3(H) 3.5 - 10.5 10? 3 /uL 03/12/2020 12:58 AM [facility] RBC 3.71(L) 4.30 - 5.70 10? 6 /uL 03/12/2020 12:58 AM [facility] Hemoglobin 10.5(L) 13.5 - 17.5 g/dL 03/12/2020 12:58 AM [facility] Hematocrit 30.7(L) 39.0 - 50.0 % 03/12/2020 12:58 AM [facility] MCV 82.7 81.0 - 97.0 fL 03/12/2020 12:58 AM [facility] MCH 28.3 28.0 - 34.0 pg 03/12/2020 12:58 AM [facility] MCHC 34.2 32.0 - 36.0 g/dL 03/12/2020 12:58 AM [facility] Platelet Count 252 150 - 400 10? 3 /uL 03/12/2020 12:58 AM [facility] RDW-SD 49.8 36.0 - 50.0 fL 03/12/2020 12:58 AM [facility] RDW-CV 17.2(H) 11.2 - 14.8 % 03/12/2020 12:58 AM [facility] MPV 12.5 9.3 - 12.8 fL 03/12/2020 12:58 AM [facility] nRBC Absolute 0.06(H) 0 10? 3 /uL 03/12/2020 12:58 AM [facility] nRBC Auto 0.4(H) 0 /100 WBC 03/12/2020 12:58 AM [facility] Blood BLOOD SPECIMEN / Unknown Venipuncture / Unknown 03/12/2020 12:36 AM CDT 03/12/2020 12:51 AM CDT Tiffanie Nguyen BURN TABLE OPERATOR-QUALITY PROCESS ENGINEER LAB - HEMATOLOG Y ORDERABLES [facility] [address] [place] [address], [facility] [phone] * (ABNORMAL) DIFFERENTIAL MANUAL (03/11/2020 12:33 AM CDT) WBC (corrected for NRBC) 15.4 10? 3 /uL 03/11/2020 1:16 AM [facility] Total Cell Count 100 03/11/20 20 1:16 AM [facility] Neutrophils Absolute Manual 14.94(H) 1.60 - 7.00 10? 3 /uL 03/11/2020 1:16 AM [facility] Comment:(BANDS+SEGS) x WBC = NEUT # (ANC) Lymphocyte Absolute Manual 0.31(L) 0.80 - 2.90 10? 3 /uL 03/11/2020 1:16 AM [facility] Monocytes Absolute Manual 0.15 0.14 - 0.66 10? 3 /uL 03/11/2020 1:16 AM [facility] Band % Manual 4 0 - 10 % 03/11/2020 1:16 AM [facility] Neutrophil % Manual 93(H) 30 - 60 % 03/11/2020 1:16 AM [facility] Lymphocyte % Manual 2(L) 20 - 45 % 03/11/2020 1:16 AM [facility] Monocytes % Manual 1(L) 2 - 10 % 03/11/2020 1:16 AM [facility] Platelet Estimate Adequate Adequate 03/11/2020 1:16 AM [facility] Anisocytosis 1+(A) None 03/11/2020 1:16 AM [facility] Poikilocytes Occasional( A) None 03/11/2020 1:16 AM [facility] Microcytes Occasional( A) None 03/11/2020 1:16 AM [facility] Polychromasia Occasional( A) None 03/11/2020 1:16 AM [facility] Target Cells 1+(A) None 03/11/2020 1:16 AM [facility] Blood BLOOD SPECIMEN / Unknown Venipuncture / Unknown 03/11/2020 12:33 AM CDT 03/11/2020 12:37 AM CDT Tiffanie Nguyen [facility] LAB - HEMATOLOG Y ORDERABLES Performing Organization Address [facility]/ZIP Co de Phone Number [address] [address], [facility] [phone] * PHOSPHORUS BLOOD (03/11/2020 12:33 AM CDT) Phosphorus 3.6 2.3 - 4.7 mg/dL 03/11/2020 1:04 AM CDT [facility] Blood BLOOD SPECIMEN / Unknown Venipuncture / Unknown 03/11/2020 12:33 AM CDT 03/11/2020 12:37 AM CDT Tiffanie Nguyen [facility] LAB - CHEMISTRY ORDERABLES Performing Organization Address [facility] Co de Phone Number [place] [phone] [phone] * MAGNESIUM BLOOD (03/11/2020 12:33 AM CDT) Magnesium 1.9 1.6 - 2.6 mg/dL 03/11/2020 1:04 AM CDT [facility] Blood BLOOD SPECIMEN / Unknown Venipuncture / Unknown 03/11/2020 12:33 AM CDT 03/11/2020 12:37 AM CDT Tiffanie Nguyen [facility] LAB - CHEMISTRY ORDERABLES Performing Organization Address City/[facility]/ZIP Co de Phone Number [address] [address], [facility] [phone] * (ABNORMAL) COMPREHENSIVE METABOLIC PANEL (03/11/2020 12:33 AM CDT) BUN 20 7 - 26 mg/dL 03/11/2020 1:04 AM CDT [facility] Creatinine 0.8 0.6 - 1.2 mg/dL 03/11/2020 1:04 AM CDT [facility] Sodium 138 136 - 145 mmol/L 03/11/2020 1:04 AM [facility] Potassium 3.8 3.5 - 4.5 mmol/L 03/11/2020 1:04 AM [facility] Chloride 101 98 - 107 mmol/L 03/11/2020 1:04 AM [facility] CO2 25 22 - 29 mmol/L 03/11/2020 1:04 AM [facility] Glucose 107 70 - 115 mg/dL 03/11/2020 1:04 AM [facility] Calcium 8.6 8.4 - 10.2 mg/dL 03/11/2020 1:04 AM [facility] Protein Total 5.4(L) 6.0 - 8.3 g/dL 03/11/2020 1:04 AM [facility] Albumin 1.9(L) 3.4 - 5.0 g/dL 03/11/2020 1:04 AM [facility] Bilirubin Total 0.5 0.2 - 1.2 mg/dL 03/11/2020 1:04 AM [facility] Alkaline Phosphatase 125 40 - 150 Units/L 03/11/2020 1:04 AM [facility] ALT 79(H) 0 - 55 Units/L 03/11/2020 1:04 AM [facility] AST 21 5 - 34 Units/L 03/11/2020 1:04 AM [facility] Anion Gap 16 8 - 18 03/11/2020 1:04 AM [facility] BUN/Creatinine Ratio 25(H) 7 - 23 03/11/2020 1:04 AM [facility] Osmolality Calculated 289 270 - 300 mOsm/kg 03/11/2020 1:04 AM [facility] Albumin/Globulin Ratio 0.5(L) 1.1 - 2.3 03/11/2020 1:04 AM [facility] eGFR >60 >60 mL/min/1.7 3 m2 03/11/2020 1:04 AM [facility] Blood BLOOD SPECIMEN / Unknown Venipuncture / Unknown 03/11/2020 12:33 AM CDT 03/11/2020 12:37 AM T Tiffanie Nguyen BURN TABLE OPERATOR-QUALITY PROCESS ENGINEER LAB - CHEMISTRY ORDERABLES [facility] [address] [place] [address], [facility] [phone] * (ABNORMAL) CBC W AUTO DIFFERENTIAL (03/11/2020 12:33 AM [facility]) WBC 15.4(H) 3.5 - 10.5 10? 3 /uL 03/11/2020 12:44 AM [facility] RBC 3.24(L) 4.30 - 5.70 10? 6 /uL 03/11/2020 12:44 AM [facility] Hemoglobin 9.2(L) 13.5 - 17.5 g/dL 03/11/2020 12:44 AM [facility] Hematocrit 26.4(L) 39.0 - 50.0 % 03/11/2020 12:44 AM [facility] MCV 81.5 81.0 - 97.0 fL 03/11/2020 12:44 AM [facility] MCH 28.4 28.0 - 34.0 pg 03/11/2020 12:44 AM [facility] MCHC 34.8 32.0 - 36.0 g/dL 03/11/2020 12:44 AM [facility] Platelet Count 218 150 - 400 10? 3 /uL 03/11/2020 12:44 AM [facility] RDW-SD 48.5 36.0 - 50.0 fL 03/11/2020 12:44 AM [facility] RDW-CV 16.7(H) 11.2 - 14.8 % 03/11/2020 12:44 AM [facility] MPV 12.6 9.3 - 12.8 fL 03/11/2020 12:44 AM [facility] nRBC Absolute 0.05(H) 0 10? 3 /uL 03/11/2020 12:44 AM [facility] nRBC Auto 0.3(H) 0 /100 WBC 03/11/2020 12:44 AM [facility] Blood BLOOD SPECIMEN / Unknown Venipuncture / Unknown 03/11/2020 12:33 AM CDT 03/11/2020 12:37 AM CDT Tiffanie Seymour Patrick BURN TABLE OPERATOR-QUALITY PROCESS ENGINEER LAB - HEMATOLOG Y ORDERABLES [facility] [address] [place] [address] * TRANSFUSE [facility] COVID-19 PLASMA UNIT (03/10/2020 6:22 PM CDT) Kalpesh Robison MD NURSING - BLOOD PROD TRANSFUSION * TRANSFUSE [facility] COVID-19 PLASMA UNIT, 1 Units (03/10/2020 6:22 PM CDT) Kalpesh Robison MD NURSING - BLOOD PROD TRANSFUSION * BLOOD TYPE ABO+ RH PANEL (03/10/2020 1:25 PM CDT) ABO Rh A POS 03/10/2020 2:1 3 PM CDT [facility] Blood BLOOD SPECIMEN / Unknown Venipuncture / Unknown 03/10/2020 1:25 PM CDT 03/10/2020 1:36 PM CDT Kalpesh Robison MD LAB - BLOOD BANK ORD ERABLES [facility] [address] [place] [address] * 1 Units (03/10/2020 1:00 PM CDT) Unit Description COVID 19 CP [facility] Unit ABO A [facility] Unit Rh POS [facility] Product Number [id number] [facility] B LOOD [facility] Unit Donor # [id number] [facility] Unit Status released [facility] BLOO D BANK LAB Product Code [id number] [facility] OD [facility] Blood Type Barcode 6200 [facility] Expiration Date S BLOOD BANK LAB Unit Description Thawed CCP 5D [facility] Unit ABO A [facility] Unit Rh POS [facility] Product [facility] [id number] [facility] B LOOD BANK LAB Unit Donor # [id number] [facility] Unit Status transfused [facility] BLO OD BANK LAB Product Code [id number] [facility] B[facility] OD [facility] Blood Type Barcode 6200 [facility] Expiration Date [id number] S BLOOD BANK LAB Blood Bank BLOOD SPECIMEN / Unknown 03/10/2020 1:00 PM CDT Kalpesh Robison MD LAB - BLOOD BANK ORD ERABLES [facility] BLOOD BANK LAB [address] [place] [address], [facility] * XR CHEST 1VW PORTABLE (03/10/2020 [...] - 243 Units/L 03/10/2020 1:21 AM CDT [facility] Blood BLOOD SPECIMEN / Unknown Venipuncture / Unknown 03/10/2020 12:59 AM CDT 03/10/2020 1:01 AM CDT Kenneth Martins MD LAB - CHEMISTRY [place] Performing Organization Address [facility]/ZIP Co de Phone Number [address], [facility] [phone] * (ABNORMAL) FERRITIN (03/10/2020 12:59 AM CDT) Pathologist [facility] Ferritin 4,024(H) 22 - 275 ng/mL 03/10/2020 2:38 AM CDT [facility] Comment:Result obtained by jason hernandez. Blood BLOOD SPECIMEN / Unknown Venipuncture / Unknown 03/10/2020 12:59 AM CDT 03/10/2020 1:01 AM CDT Kenneth Martins MD LAB - CHEMISTRY [place] Performing Organization Address [facility] Co de Phone Number [address], [facility] [phone] * (ABNORMAL) ERYTHROCYTE SEDIMENTATION RATE (03/10/2020 12:59 AM CDT) Pathologist [facility] Erythrocyte Sedimentation Rate Westergren >130(H) 0 - 15 MM/HR 03/10/2020 1:21 AM CDT [facility] Blood BLOOD SPECIMEN / Unknown Venipuncture / Unknown 03/10/2020 12:59 AM CDT 03/10/2020 1:01 AM CDT Kenneth Martins MD LAB - HEMATOLOGY ORD LEONIE Performing Organization Address [facility] Co de Phone Number [address] [address], [facility] [phone] * (ABNORMAL) D-DIMER (03/10/2020 12:59 AM CDT) D-Dimer Quantitative 3.56(H) <=0.50 mcg/mL FEU 03/10/2020 1:28 AM CDT [facility] Comment: In the absence of [...] Martins MD LAB - COAGULATION OR DERABLES [address] [address], [facility] [phone] * (ABNORMAL) C-REACTIVE PROTEIN (03/10/2020 12:59 AM CDT) C-Reactive Protein 30.6(H) <=0.5 mg/dL 03/10/2020 1:46 AM CDT [facility] Blood BLOOD SPECIMEN / Unknown Venipuncture / Unknown 03/10/2020 12:59 AM CDT 03/10/2020 1:01 AM CDT Kenneth Martins MD LAB - CHEMISTRY [place] [address] [address], [facility] [phone] * PHOSPHORUS BLOOD (03/10/2020 12:59 AM CDT) Phosphorus 2.9 2.3 - 4.7 mg/dL 03/10/2020 1:21 AM CDT [facility] Blood BLOOD SPECIMEN / Unknown Venipuncture / Unknown 03/10/2020 12:59 AM CDT 03/10/2020 1:01 AM CDT Tiffanie Nguyen APRN-QUALITY PROCESS ENGINEER LAB - CHEMISTRY ORDERABLES Performing Organization Address City/[facility]/ZIP Co de Phone Number [address] [address], [facility] [phone] * MAGNESIUM BLOOD (03/10/2020 12:59 AM CDT) Magnesium 2.0 1.6 - 2.6 mg/dL 03/10/2020 1:21 AM CDT [facility] Blood BLOOD SPECIMEN / Unknown Venipuncture / Unknown 03/10/2020 12:59 AM CDT 03/10/2020 1:01 AM CDT Tiffanie Nguyen APRN-QUALITY PROCESS ENGINEER LAB - CHEMISTRY ORDERABLES [address] [address], [facility] [phone] * (ABNORMAL) COMPREHENSIVE METABOLIC PANEL (03/10/2020 12:59 AM CDT) BUN 17 7 - 26 mg/dL 03/10/2020 1:21 AM CDT [facility] Creatinine 0.7 0.6 - 1.2 mg/dL 03/10/2020 1:21 AM [facility] Sodium 137 136 - 145 mmol/L 03/10/2020 1:21 AM [facility] Potassium 4.1 3.5 - 4.5 mmol/L 03/10/2020 1:21 AM [facility] Chloride 103 98 - 107 mmol/L 03/10/2020 1:21 AM [facility] CO2 22 22 - 29 mmol/L 03/10/2020 1:21 AM [facility] Glucose 96 70 - 115 mg/dL 03/10/2020 1:21 AM [facility] Calcium 7.9(L) 8.4 - 10.2 mg/dL 03/10/2020 1:21 AM [facility] Protein Total 5.1(L) 6.0 - 8.3 g/dL 03/10/2020 1: AM [facility] Albumin 1.7(L) 3.4 - 5.0 g/dL 03/10/2020 1:21 AM [facility] Bilirubin Total 0.6 0.2 - 1.2 mg/dL 03/10/2020 1:21 AM [facility] Alkaline Phosphatase 152(H) 40 - 150 Units/L 03/10/2020 1:21 AM [facility] ALT 120(H) 0 - 55 Units/L 03/10/2020 1:21 AM [facility] AST 48(H) 5 - 34 Units/L 03/10/2020 1:21 AM [facility] Anion Gap 16 8 - 18 03/10/2020 1:21 AM [facility] BUN/Creatinine Ratio 24(H) 7 - 23 03/10/2020 1:21 AM [facility] Osmolality Calculated 285 270 - 300 mOsm/kg 03/10/2020 1: AM [facility] Albumin/Globulin Ratio 0.5(L) 1.1 - 2.3 03/10/2020 1:21 AM [facility] eGFR >60 >60 mL/min/1.7 3 m2 03/10/2020 1:21 AM [facility] Blood BLOOD SPECIMEN / Unknown Venipuncture / Unknown 03/10/2020 12:59 AM CDT 03/10/2020 1:01 AM CDT Tiffanie Nguyen BURN TABLE OPERATOR-QUALITY PROCESS ENGINEER LAB - CHEMISTRY ORDERABLES [address] [address], [facility] [phone] * (ABNORMAL) CBC W AUTO DIFFERENTIAL (03/10/2020 12:59 AM CDT) WBC 17.7(H) 3.5 - 10.5 10? 3 /uL 03/10/2020 1:07 AM [facility] RBC 3.39(L) 4.30 - 5.70 10? 6 /uL 03/10/2020 1:07 AM [facility] Hemoglobin 9.7(L) 13.5 - 17.5 g/dL 03/10/2020 1:07 AM [facility] Hematocrit 28.1(L) 39.0 - 50.0 % 03/10/2020 1:07 AM [facility] MCV 82.9 81.0 - 97.0 fL 03/10/2020 1:07 AM [facility] MCH 28.6 28.0 - 34.0 pg 03/10/2020 1:07 AM [facility] MCHC 34.5 32.0 - 36.0 g/dL 03/10/2020 1:07 AM [facility] Platelet Count 231 150 - 400 10? 3 /uL 03/10/2020 1:07 AM [facility] RDW-SD 49.1 36.0 - 50.0 fL 03/10/2020 1:07 AM [facility] RDW-CV 16.7(H) 11.2 - 14.8 % 03/10/2020 1:07 AM [facility] MPV 11.4 9.3 - 12.8 fL 03/10/2020 1:07 AM [facility] nRBC Absolute 0.09(H) 0 10? 3 /uL 03/10/2020 1:07 AM [facility] nRBC Auto 0.5(H) 0 /100 WBC 03/10/2020 1:07 AM [facility] Neutrophils % 92.8(H) 35.0 - 70.0 % 03/10/2020 1:07 AM [facility] Lymphocytes % 4.2(L) 19.7 - 55.1 % 03/10/2020 1:07 AM [facility] Monocytes % 2.2(L) 3.0 - 15.0 % 03/10/2020 1:07 AM [facility] Eosinophils % 0.0 0.0 - 6.0 % 03/10/2020 1:07 AM [facility] Basophil % 0.1 0.0 - 1.5 % 03/10/2020 1:07 AM [facility] Neutrophils Absolute 16.4(H) 1.6 - 7.0 10? 3 /uL 03/10/2020 1:07 AM [facility] Lymphocyte Absolute 0.7(L) 0.8 - 2.9 10? 3 /uL 03/10/2020 1:07 AM [facility] Monocytes Absolute 0.38 0.14 - 0.66 10? 3 /uL 03/10/2020 1:07 AM [facility] Eosinophils Absolute 0.00 0.00 - 0.45 10? 3 /uL 03/10/2020 1:07 AM [facility] Basophils Absolute 0.02 0.00 - 0.06 10? 3 /uL 03/10/2020 1:07 AM [facility] Immature Granulocytes % 0.7 0.0 - 1.0 % 03/10/2020 1:07 AM [facility] Blood BLOOD SPECIMEN / Unknown Venipuncture / Unknown 03/10/2020 12:59 AM CDT 03/10/2020 1:01 AM CDT Tiffanie Nguyen BURN TABLE OPERATOR-QUALITY PROCESS ENGINEER LAB - HEMATOLOG Y ORDERABLES [address] [address] [phone] * CULTURE BLOOD (03/09/2020 8:06 PM CDT) Pathologist [facility] Culture No growth day 5 [facility] 03/15/2020 12:01 AM [facility] Blood PERIPHERAL BLOOD / Unknown Venipuncture / Unknown 03/09/2020 8:06 PM CDT 03/09/2020 8:14 PM CDT Anali Avery MD LAB - MICROBIOLOG Y ORDERABLES Performing Organization Address City/[facility]/ZIP Co de Phone Number [facility] [address] [place] [address], [facility] [phone] * CULTURE BLOOD (03/09/2020 7:52 PM CDT) Pathologist [facility] Culture No growth day 5 [facility] 03/15/2020 12:01 AM CDT [facility] Blood PERIPHERAL BLOOD / Unknown Venipuncture / Unknown 03/09/2020 7:52 PM CDT 03/09/2020 8:14 PM CDT Anali Avery MD LAB - MICROBIOLOG Y ORDERABLES Performing Organization Address City/[facility]/ZIP Co de Phone Number [facility] [address] [place] [address], [facility] [phone] * MAGNESIUM BLOOD (03/09/2020 5:54 AM CDT) Magnesium 2.6 1.6 - 2.6 mg/dL 03/09/2020 6:50 AM CDT [facility] Blood BLOOD SPECIMEN / Unknown Venipuncture / Unknown 03/09/2020 5:54 AM CDT 03/09/2020 5:58 AM CDT Kenneth Martins MD LAB - CHEMISTRY [place] [address] [address], [facility] [phone] * (ABNORMAL) COMPREHENSIVE METABOLIC PANEL (03/09/2020 5:54 AM CDT) BUN 19 7 - 26 mg/dL 03/09/2020 6:29 AM CDT [facility] Creatinine 1.0 0.6 - 1.2 mg/dL 03/09/2020 6:29 AM [facility] Sodium 140 136 - 145 mmol/L 03/09/2020 6:29 AM [facility] Potassium 3.5 3.5 - 4.5 mmol/L 03/09/2020 6:29 AM [facility] Chloride 103 98 - 107 mmol/L 03/09/2020 6:29 AM [facility] CO2 27 22 - 29 mmol/L 03/09/2020 6:29 AM [facility] Glucose 76 70 - 115 mg/dL 03/09/2020 6:29 AM [facility] Calcium 8.0(L) 8.4 - 10.2 mg/dL 03/09/2020 6:29 AM [facility] Protein Total 5.3(L) 6.0 - 8.3 g/dL 03/09/2020 6:29 AM [facility] Albumin 1.8(L) 3.4 - 5.0 g/dL 03/09/2020 6:29 AM [facility] Bilirubin Total 0.9 0.2 - 1.2 mg/dL 03/09/2020 6:29 AM [facility] Alkaline Phosphatase 164(H) 40 - 150 Units/L 03/09/2020 6:29 AM [facility] ALT 165(H) 0 - 55 Units/L 03/09/2020 6:29 AM [facility] AST 139(H) 5 - 34 Units/L 03/09/2020 6:29 AM [facility] Anion Gap 14 8 - 18 03/09/2020 6:29 AM [facility] BUN/Creatinine Ratio 19 7 - 23 03/09/2020 6:29 AM [facility] Osmolality Calculated 291 270 - 300 mOsm/kg 03/09/2020 6:29 AM [facility] Albumin/Globulin Ratio 0.5(L) 1.1 - 2.3 03/09/2020 6:29 AM [facility] eGFR >60 >60 mL/min/1.7 3 m2 03/09/2020 6:29 AM [facility] Blood BLOOD SPECIMEN / Unknown Venipuncture / Unknown 03/09/2020 5:54 AM CDT 03/09/2020 5:58 AM CDT Tiffanie Nguyen [facility] LAB - CHEMISTRY ORDERABLES Performing Organization Address [facility]/ZIP Co de Phone Number [address] [address], [facility] [phone] * (ABNORMAL) MAGNESIUM BLOOD (03/09/2020 4:10 AM CDT) Pathologist [facility] Magnesium 1.3(L) 1.6 - 2.6 mg/dL 03/09/2020 5:26 AM CDT [facility] Blood BLOOD SPECIMEN / Unknown Venipuncture / Unknown 03/09/2020 4:10 AM CDT 03/09/2020 4:17 AM CDT Tiffanie Nguyen [facility] LAB - CHEMISTRY ORDERABLES Performing Organization Address [facility] Co de Phone Number [address] [address], [facility] [phone] * PHOSPHORUS BLOOD (03/09/2020 12:45 AM CDT) [facility] Phosphorus 2.4 2.3 - 4.7 mg/dL 03/09/2020 1:11 AM CDT [facility] Blood BLOOD SPECIMEN / Unknown Venipuncture / Unknown 03/09/2020 12:45 AM CDT 03/09/2020 12:49 AM CDT Tiffanie Nguyen [facility] LAB - CHEMISTRY ORDERABLES [address] [address], [facility] [phone] * (ABNORMAL) CBC W AUTO DIFFERENTIAL (03/09/2020 12:45 AM CDT) WBC 16.8(H) 3.5 - 10.5 10? 3 /uL 03/09/2020 12:57 AM CDT [facility] RBC 3.34(L) 4.30 - 5.70 10? 6 /uL 03/09/2020 12:57 AM [facility] Hemoglobin 9.7(L) 13.5 - 17.5 g/dL 03/09/2020 12:57 AM [facility] Hematocrit 28.1(L) 39.0 - 50.0 % 03/09/2020 12:57 AM [facility] MCV 84.1 81.0 - 97.0 fL 03/09/2020 12:57 AM [facility] MCH 29.0 28.0 - 34.0 pg 03/09/2020 12:57 AM [facility] MCHC 34.5 32.0 - 36.0 g/dL 03/09/2020 12:57 AM [facility] Platelet Count 268 150 - 400 10? 3 /uL 03/09/2020 12:57 AM [facility] RDW-SD 51.3(H) 36.0 - 50.0 fL 03/09/2020 12:57 AM [facility] RDW-CV 17.2(H) 11.2 - 14.8 % 03/09/2020 12:57 AM [facility] MPV 12.8 9.3 - 12.8 fL 03/09/2020 12:57 AM [facility] nRBC Absolute 0.15(H) 0 10? 3 /uL 03/09/2020 12:57 AM [facility] nRBC Auto 0.9(H) 0 /100 WBC 03/09/2020 12:57 AM [facility] Neutrophils % 85.1(H) 35.0 - 70.0 % 03/09/2020 12:57 AM [facility] Lymphocytes % 11.2(L) 19.7 - 55.1 % 03/09/2020 12:57 AM [facility] Monocytes % 2.6(L) 3.0 - 15.0 % 03/09/2020 12:57 AM [facility] Eosinophils % 0.0 0.0 - 6.0 % 03/09/2020 12:57 AM [facility] Basophil % 0.1 0.0 - 1.5 % 03/09/2020 12:57 AM [facility] Neutrophils Absolute 14.3(H) 1.6 - 7.0 10? 3 /uL 03/09/2020 12:57 AM CDT [facility] Lymphocyte Absolute 1.9 0.8 - 2.9 10? 3 /uL 03/09/2020 12:57 AM CDT [facility] Monocytes Absolute 0.44 0.14 - 0.66 10? 3 /uL 03/09/2020 12:57 AM CDT [facility] Eosinophils Absolute 0.00 0.00 - 0.45 10? 3 /uL 03/09/2020 12:57 AM CDT [facility] Basophils Absolute 0.01 0.00 - 0.06 10? 3 /uL 03/09/2020 12:57 AM CDT [facility] Immature Granulocytes % 1.0 0.0 - 1.0 % 03/09/2020 12:57 AM CDT [facility] Blood BLOOD SPECIMEN / Unknown Venipuncture / Unknown 03/09/2020 12:45 AM CDT 03/09/2020 12:50 AM CDT Tiffanie MIMS LAB - HEMATOLOG Y ORDERABLES [address] [address], [facility] [phone] * CULTURE URINE (03/08/2020 11:19 PM CDT) Culture Urine No growth (<100 CFU/mL) [facility] 03/10/2020 6:14 AM CDT [facility] Urine URINE SPECIMEN OBTAINED BY CLEAN CATCH PROCEDURE / Unknown Collection / Unknown 03/08/2020 11:19 PM CDT 03/08/2020 11:22 PM CDT Joe Dennison MD LAB - MICROBIOLOGY O RDERABLES [facility] [address] [place] [address], [facility] [phone] * MAGNESIUM BLOOD (03/08/2020 9:40 PM CDT) Magnesium 1.9 1.6 - 2.6 mg/dL 03/08/2020 10:04 PM CDT [facility] Blood BLOOD SPECIMEN / Unknown Venipuncture / Unknown 03/08/2020 9:40 PM CDT 03/08/2020 9:44 PM CDT Kenneth Martins MD LAB - CHEMISTRY [place] [address] [address], [facility] [phone] * (ABNORMAL) BASIC METABOLIC PANEL (CALCIUM TOTAL) (03/08/2020 9:40 PM CDT) Pathologist [facility] BUN 19 7 - 26 mg/dL 03/08/2020 10:04 PM [facility] Creatinine 0.9 0.6 - 1.2 mg/dL 03/08/2020 10:04 PM [facility] Sodium 141 136 - 145 mmol/L 03/08/2020 10:04 PM [facility] Potassium 3.6 3.5 - 4.5 mmol/L 03/08/2020 10:04 PM [facility] Chloride 103 98 - 107 mmol/L 03/08/2020 10:04 PM [facility] CO2 24 22 - 29 mmol/L 03/08/2020 10:04 PM [facility] Glucose 87 70 - 115 mg/dL 03/08/2020 10:04 PM [facility] Calcium 7.7(L) 8.4 - 10.2 mg/dL 03/08/2020 10:04 PM [facility] Anion Gap 18 8 - 18 03/08/2020 10:04 PM [facility] BUN/Creatinine Ratio 21 7 - 23 03/08/2020 10:04 PM [facility] Osmolality Calculated 294 270 - 300 mOsm/kg 03/08/2020 10:04 PM [facility] eGFR >60 >60 mL/min/1.7 3 m2 03/08/2020 10:04 PM [facility] Blood BLOOD SPECIMEN / Unknown Venipuncture / Unknown 03/08/2020 9:40 PM CDT 03/08/2020 9:44 PM CDT Kenneth Martins MD LAB - CHEMISTRY [facility] [facility] [address] [place] [address], [facility] [phone] * (ABNORMAL) URINALYSIS REFLEX TO MICROSCOPIC NO CULTURE (03/08/2020 7:08 PM CDT) Color UA Yellow Straw, Yellow, Colorless 03/08/2020 7:49 PM [facility] Clarity UA Clear Clear, Slt Cloudy 03/08/2020 7:49 PM [facility] Specific [place] UA 1.012 1.005 - 1.030 03/08/2020 7:49 PM [facility] pH UA 7.0 5.0 - 8.0 pH 03/08/2020 7:49 PM [facility] Protein UA 1+(A) Negative mg/dL 03/08/2020 7:49 PM [facility] Glucose UA Negative Negative mg/dL 03/08/2020 7:49 PM [facility] Ketone UA Trace(A) Negative mg/dL 03/08/2020 7:49 PM [facility] Bilirubin UA Negative Negative mg/dL 03/08/2020 7:49 PM [facility] Blood UA 1+(A) Negative 03/08/2020 7:49 PM [facility] Nitrite UA Negative Negative 03/08/2020 7:49 PM [facility] Leukocyte Esterase Negative Negative 03/08/2020 7:49 PM [facility] Urobilinogen UA Negative Negative mg/dL 03/08/2020 7:49 PM [facility] RBC UA 0-2 None Seen, 0-2, 3-5 /HPF 03/08/2020 7:49 PM [facility] WBC UA 0-5 None Seen, 0-5 /HPF 03/08/2020 7:49 PM [facility] Bacteria UA Trace None, Trace /HPF 03/08/2020 7:49 PM [facility] Squamous Epithelial Cells UA None Seen None Seen, 0-2 /HPF 03/08/2020 7:49 PM [facility] Mucus UA 1+ None, 1+ /LPF 03/08/2020 7:49 PM [facility] Urine URINE SPECIMEN OBTAINED BY CLEAN CATCH PROCEDURE / Unknown Collection / Unknown 03/08/2020 7:08 PM CDT 03/08/2020 7:15 PM CDT Narrative [facility] - 03/08/2020 7:49 PM CDT Joe Dennison MD LAB - URINALYSIS ORD ERABLES Performing Organization Address [facility]/ZIP Co de Phone Number [address] [address], [facility] [phone] * CULTURE BLOOD (03/08/2020 7:04 PM CDT) Culture No growth day 5 [facility] 03/13/2020 11:30 PM CDT [facility] Blood PERIPHERAL BLOOD / Unknown Venipuncture / Unknown 03/08/2020 7:04 PM CDT 03/08/2020 7:09 PM CDT Joe Dennison MD LAB - MICROBIOLOGY O RDLEONIE Performing Organization Address City/[facility]/ZIP Co de Phone Number [facility] [address] [place] [address], [facility] [phone] * CULTURE BLOOD (03/08/2020 6:45 PM CDT) Culture No growth day 5 [facility] 03/13/2020 11:30 PM CDT [facility] Blood PERIPHERAL BLOOD / Unknown Venipuncture / Unknown 03/08/2020 6:45 PM CDT 03/08/2020 7:09 PM CDT Joe Dennison MD LAB - MICROBIOLOGY O RDLEONIE Performing Organization Address [facility]/ZIP Co de Phone Number [facility] [address] [place] [address], [facility] [phone] * (ABNORMAL) VANCOMYCIN LEVEL TROUGH (03/08/2020 8:07 AM CDT) Vancomycin Trough 24.4(H) 10.0 - 20.0 mcg/mL 03/08/2020 8:53 AM CDT [facility] Blood BLOOD SPECIMEN / Unknown Venipuncture / Unknown 03/08/2020 8:07 AM CDT 03/08/2020 8:20 AM CDT Joe Dennison MD LAB - CHEMISTRY [place] [place] Performing Organization Address [facility]/ZIP Co de Phone Number [address], [facility] [phone] * (ABNORMAL) ERYTHROCYTE SEDIMENTATION RATE (03/08/2020 2:23 AM CDT) Erythrocyte Sedimentation Rate Westergren 105(H) 0 - 15 MM/HR 03/08/2020 2:38 AM CDT [facility] Blood BLOOD SPECIMEN / Unknown Venipuncture / Unknown 03/08/2020 2:23 AM CDT 03/08/2020 2:27 AM CDT Joe Dennison MD LAB - HEMATOLOGY [place] Performing Organization Address [facility]/[place] [address], [facility] [phone] * (ABNORMAL) C-REACTIVE PROTEIN (03/08/2020 2:23 AM CDT) C-Reactive Protein 20.0(H) <=0.5 mg/dL 03/08/2020 2:46 AM CDT [facility] Blood BLOOD SPECIMEN / Unknown Venipuncture / Unknown 03/08/2020 2:23 AM CDT 03/08/2020 2:27 AM CDT Joe Dennison MD LAB - CHEMISTRY [place] Performing Organization Address [facility]/ZIP Co de Phone Number [address] [address], [facility] [phone] * (ABNORMAL) D-DIMER (03/08/2020 2:23 AM CDT) D-Dimer Quantitative 3.74(H) <=0.50 mcg/mL FEU 03/08/2020 2:41 AM CDT [facility] Comment: In the absence of clinical [...] Dennison MD LAB - COAGULATION OR DERABLES [address] [address] [phone] * (ABNORMAL) LDH BLOOD (03/08/2020 2:23 AM CDT) LDH Total 518(H) 125 - 243 Units/L 03/08/2020 2:47 AM CDT [facility] Blood BLOOD SPECIMEN / Unknown Venipuncture / Unknown 03/08/2020 2:23 AM CDT 03/08/2020 2:27 AM CDT Joe Dennison MD LAB - CHEMISTRY [place] Performing Organization Address [facility]/ZIP Co de Phone Number [address] [address], [facility] [phone] * (ABNORMAL) FERRITIN (03/08/2020 2:23 AM CDT) Ferritin 1,433(H) 22 - 275 ng/mL 03/08/2020 3:39 AM CDT [facility] Comment:Result obtained by jason hernandez. Blood BLOOD SPECIMEN / Unknown Venipuncture / Unknown 03/08/2020 2:23 AM CDT 03/08/2020 2:27 AM CDT Joe Dennison MD LAB - CHEMISTRY [place] Performing Organization Address [facility]/ZIP Co de Phone Number [address] [address], [facility] [phone] * PHOSPHORUS BLOOD (03/08/2020 2:23 AM CDT) Phosphorus 3.4 2.3 - 4.7 mg/dL 03/08/2020 2:47 AM CDT [facility] Blood BLOOD SPECIMEN / Unknown Venipuncture / Unknown 03/08/2020 2:23 AM CDT 03/08/2020 2:27 AM CDT Tiffanie Nguyen BURN TABLE OPERATOR-QUALITY PROCESS ENGINEER LAB - CHEMISTRY ORDERABLES Performing Organization Address City/[facility]/ZIP Co de Phone Number [address] [address], [facility] [phone] * MAGNESIUM BLOOD (03/08/2020 2:23 AM CDT) Magnesium 2.2 1.6 - 2.6 mg/dL 03/08/2020 2:47 AM CDT [facility] Blood BLOOD SPECIMEN / Unknown Venipuncture / Unknown 03/08/2020 2:23 AM CDT 03/08/2020 2:27 AM CDT Tiffanie Nguyen BURN TABLE OPERATOR-QUALITY PROCESS ENGINEER LAB - CHEMISTRY ORDERABLES [facility] [address] [place] [address], [facility] [phone] * (ABNORMAL) COMPREHENSIVE METABOLIC PANEL (03/08/2020 2:23 AM [facility] BUN 14 7 - 26 mg/dL 03/08/2020 2:47 AM [facility] Creatinine 0.9 0.6 - 1.2 mg/dL 03/08/2020 2:47 AM [facility] Sodium 144 136 - 145 mmol/L 03/08/2020 2:47 AM [facility] Potassium 4.1 3.5 - 4.5 mmol/L 03/08/2020 2:47 AM [facility] Chloride 108(H) 98 - 107 mmol/L 03/08/2020 2:47 AM [facility] CO2 25 22 - 29 mmol/L 03/08/2020 2:47 AM [facility] Glucose 98 70 - 115 mg/dL 03/08/2020 2:47 AM [facility] Calcium 8.0(L) 8.4 - 10.2 mg/dL 03/08/2020 2:47 AM [facility] Protein Total 5.2(L) 6.0 - 8.3 g/dL 03/08/2020 2:47 AM [facility] Albumin 1.7(L) 3.4 - 5.0 g/dL 03/08/2020 2:47 AM [facility] Bilirubin Total 0.3 0.2 - 1.2 mg/dL 03/08/2020 2:47 AM [facility] Alkaline Phosphatase 74 40 - 150 Units/L 03/08/2020 2:47 AM [facility] ALT 47 0 - 55 Units/L 03/08/2020 2:47 AM [facility] AST 17 5 - 34 Units/L 03/08/2020 2:47 AM [facility] Anion Gap 15 8 - 18 03/08/2020 2:47 AM [facility] BUN/Creatinine Ratio 16 7 - 23 03/08/2020 2:47 AM [facility] Osmolality Calculated 298 270 - 300 mOsm/kg 03/08/2020 2:47 AM [facility] Albumin/Globulin Ratio 0.5(L) 1.1 - 2.3 03/08/2020 2:47 AM [facility] eGFR >60 >60 mL/min/1.7 3 m2 03/08/2020 2:47 AM [facility] Blood BLOOD SPECIMEN / Unknown Venipuncture / Unknown 03/08/2020 2:23 AM CDT 03/08/2020 2:27 AM CDT Tiffanie Seymour Patrick BURN TABLE OPERATOR-QUALITY PROCESS ENGINEER LAB - CHEMISTRY ORDERABLES [address] [address], [facility] [phone] * (ABNORMAL) CBC W AUTO DIFFERENTIAL (03/08/2020 12:23 AM T) WBC 10.8(H) 3.5 - 10.5 10? 3 /uL 03/08/2020 12:40 AM [facility] Comment:The WBC count is cor rected by the instrument for nRBC's RBC 3.53(L) 4.30 - 5.70 10? 6 /uL 03/08/2020 12:40 AM [facility] Hemoglobin 10.1(L) 13.5 - 17.5 g/dL 03/08/2020 12:40 AM [facility] Hematocrit 30.6(L) 39.0 - 50.0 % 03/08/2020 12:40 AM [facility] MCV 86.7 81.0 - 97.0 fL 03/08/2020 12:40 AM [facility] MCH 28.6 28.0 - 34.0 pg 03/08/2020 12:40 AM [facility] MCHC 33.0 32.0 - 36.0 g/dL 03/08/2020 12:40 AM [facility] Platelet Count 238 150 - 400 10? 3 /uL 03/08/2020 12:40 AM [facility] RDW-SD 55.3(H) 36.0 - 50.0 fL 03/08/2020 12:40 AM [facility] RDW-CV 19.5(H) 11.2 - 14.8 % 03/08/2020 12:40 AM [facility] MPV 03/08/2020 12:40 AM [facility] Comment:NOT MEASURED nRBC Absolute 0.11(H) 0 10? 3 /uL 03/08/2020 12:40 AM [facility] nRBC Auto 1.0(H) 0 /100 WBC 03/08/2020 12:40 AM [facility] Neutrophils % 87.4(H) 35.0 - 70.0 % 03/08/2020 12:40 AM [facility] Lymphocytes % 7.6(L) 19.7 - 55.1 % 03/08/2020 12:40 AM [facility] Monocytes % 3.7 3.0 - 15.0 % 03/08/2020 12:40 AM [facility] Eosinophils % 0.0 0.0 - 6.0 % 03/08/2020 12:40 AM [facility] Basophil % 0.1 0.0 - 1.5 % 03/08/2020 12:40 AM [facility] Neutrophils Absolute 9.5(H) 1.6 - 7.0 10? 3 /uL 03/08/2020 12:40 AM [facility] Lymphocyte Absolute 0.8 0.8 - 2.9 10? 3 /uL 03/08/2020 12:40 AM [facility] Monocytes Absolute 0.40 0.14 - 0.66 10? 3 /uL 03/08/2020 12:40 AM [facility] Eosinophils Absolute 0.00 0.00 - 0.45 10? 3 /uL 03/08/2020 12:40 AM [facility] Basophils Absolute 0.01 0.00 - 0.06 10? 3 /uL 03/08/2020 12:40 AM [facility] Immature Granulocytes % 1.2(H) 0.0 - 1.0 % 03/08/2020 12:40 AM [facility] Blood BLOOD SPECIMEN / Unknown Venipuncture / Unknown 03/08/2020 12:23 AM CDT 03/08/2020 12:31 AM CDT Tiffanie Nguyen BURN TABLE OPERATOR-QUALITY PROCESS ENGINEER LAB - HEMATOLOG Y ORDERABLES [facility] [address] [place] [id number], [facility] [phone] * (ABNORMAL) SARS-COV-2 (COVID-19) IN HOUSE (03/07/2020 8:56 PM CDT) COVID-19 PCR Detected( AA) Not detected, Invalid 03/09/2020 8:54 AM CDT [facility] Microbiology SPECIMEN FROM NASOPHARYNGEAL STRUCTURE / Unknown Collection / Unknown 03/07/2020 8:56 PM CDT 03/07/2020 8:59 PM CDT Narrative [facility] - 03/09/2020 8:54 AM CDT This Real Time RT-PCR assay was developed and its performance characteristics determined by [facility]. This test has been [...] Joce Damian DO LAB - MICROBIOLOGY ORDERABLES [facility] [address] [place] [address], [facility] [phone] * XR ABDOMEN KUB PORTABLE (03/07/2020 12:35 [...] both lungs. Dictated by Logan Shi MD (radiology technician). I, Dr. BOGDAN RUBIO have personally reviewed [...] both lungs. Dictated by Logan Shi MD (radiology technician). I, Dr. BOGDAN RUBIO have personally reviewed and interpreted this examination/study. This report was electronically signed by BOGDAN RUBIO on 03/08/2020 10:39AM . Bertin Rush DO DIAGNOSTIC IMAGING O RDERABLES * PHOSPHORUS BLOOD (03/07/2020 12:05 AM CDT) Phosphorus 2.9 2.3 - 4.7 mg/dL 03/07/2020 12:42 AM CDT [facility] Blood BLOOD SPECIMEN / Unknown Venipuncture / Unknown 03/07/2020 12:05 AM CDT 03/07/2020 12:11 AM CDT Tiffanie Nguyen BURN TABLE OPERATOR-QUALITY PROCESS ENGINEER LAB - CHEMISTRY ORDERABLES [facility] [address] [place] [id number], [place] [phone] * MAGNESIUM BLOOD (03/07/2020 12:05 AM CDT) Magnesium 2.3 1.6 - 2.6 mg/dL 03/07/2020 12:42 AM [facility] Blood BLOOD SPECIMEN / Unknown Venipuncture / Unknown 03/07/2020 12:05 AM CDT 03/07/2020 12:11 AM CDT Lara Patrick BURN TABLE OPERATOR-QUALITY PROCESS ENGINEER LAB - CHEMISTRY ORDERABLES [facility] [address] [place] [address] [phone] * (ABNORMAL) COMPREHENSIVE METABOLIC PANEL (03/07/2020 12:05 AM CDT) BUN 12 7 - 26 mg/dL 03/07/2020 12:42 AM [facility] Creatinine 0.9 0.6 - 1.2 mg/dL 03/07/2020 12:42 AM [facility] Sodium 144 136 - 145 mmol/L 03/07/2020 12:42 AM [facility] Potassium 4.2 3.5 - 4.5 mmol/L 03/07/2020 12:42 AM [facility] Chloride 109(H) 98 - 107 mmol/L 03/07/2020 12:42 AM [facility] CO2 26 22 - 29 mmol/L 03/07/2020 12:42 AM [facility] Glucose 109 70 - 115 mg/dL 03/07/2020 12:42 AM [facility] Calcium 8.3(L) 8.4 - 10.2 mg/dL 03/07/2020 12:42 AM [facility] Protein Total 5.1(L) 6.0 - 8.3 g/dL 03/07/2020 12:42 AM [facility] Albumin 1.9(L) 3.4 - 5.0 g/dL 03/07/2020 12:42 AM [facility] Bilirubin Total 0.2 0.2 - 1.2 mg/dL 03/07/2020 12:42 AM [facility] Alkaline Phosphatase 75 40 - 150 Units/L 03/07/2020 12:42 AM [facility] ALT 69(H) 0 - 55 Units/L 03/07/2020 12:42 AM [facility] AST 21 5 - 34 Units/L 03/07/2020 12:42 AM [facility] Anion Gap 13 8 - 18 03/07/2020 12:42 AM [facility] BUN/Creatinine Ratio 13 7 - 23 03/07/2020 12:42 AM [facility] Osmolality Calculated 298 270 - 300 mOsm/kg 03/07/2020 12:42 AM [facility] [facility] Albumin/Globulin Ratio 0.6(L) 1.1 - 2.3 03/07/2020 12:42 AM [facility] eGFR >60 >60 mL/min/1.7 3 m2 03/07/2020 12:42 AM [facility] Blood BLOOD SPECIMEN / Unknown Venipuncture / Unknown 03/07/2020 12:05 AM T 03/07/2020 12:11 AM T Tiffanie Nguyen BURN TABLE OPERATOR-QUALITY PROCESS ENGINEER LAB - CHEMISTRY ORDERABLES Performing Organization Address City/State/[facility] Co de Phone Number [address] [address] [phone] * (ABNORMAL) CBC W AUTO DIFFERENTIAL (03/07/2020 12:05 AM [facility]) WBC 14.0(H) 3.5 - 10.5 10? 3 /uL 03/07/2020 12:14 AM [facility] RBC 3.36(L) 4.30 - 5.70 10? 6 /uL 03/07/2020 12:14 AM [facility] Hemoglobin 9.6(L) 13.5 - 17.5 g/dL 03/07/2020 12:14 AM [facility] Hematocrit 28.8(L) 39.0 - 50.0 % 03/07/2020 12:14 AM [facility] MCV 85.7 81.0 - 97.0 fL 03/07/2020 12:14 AM [facility] MCH 28.6 28.0 - 34.0 pg 03/07/2020 12:14 AM [facility] MCHC 33.3 32.0 - 36.0 g/dL 03/07/2020 12:14 AM [facility] Platelet Count 260 150 - 400 10? 3 /uL 03/07/2020 12:14 AM [facility] RDW-SD 52.1(H) 36.0 - 50.0 fL 03/07/2020 12:14 AM [facility] RDW-CV 17.1(H) 11.2 - 14.8 % 03/07/2020 12:14 AM [facility] MPV 11.6 9.3 - 12.8 fL 03/07/2020 12:14 AM [facility] nRBC Absolute 0.09(H) 0 10? 3 /uL 03/07/2020 12:14 AM [facility] nRBC Auto 0.6(H) 0 /100 WBC 03/07/2020 12:14 AM [facility] Neutrophils % 91.1(H) 35.0 - 70.0 % 03/07/2020 12:14 AM [facility] Lymphocytes % 3.8(L) 19.7 - 55.1 % 03/07/2020 12:14 AM [facility] Monocytes % 4.1 3.0 - 15.0 % 03/07/2020 12:14 AM [facility] Eosinophils % 0.0 0.0 - 6.0 % 03/07/2020 12:14 AM [facility] Basophil % 0.1 0.0 - 1.5 % 03/07/2020 12:14 AM [facility] Neutrophils Absolute 12.7(H) 1.6 - 7.0 10? 3 /uL 03/07/2020 12:14 AM [facility] Lymphocyte Absolute 0.5(L) 0.8 - 2.9 10? 3 /uL 03/07/2020 12:14 AM [facility] Monocytes Absolute 0.57 0.14 - 0.66 10? 3 /uL 03/07/2020 12:14 AM [facility] Eosinophils Absolute 0.00 0.00 - 0.45 10? 3 /uL 03/07/2020 12:14 AM CDT [facility] Basophils Absolute 0.01 0.00 - 0.06 10? 3 /uL 03/07/2020 12:14 AM CDT [facility] Immature Granulocytes % 0.9 0.0 - 1.0 % 03/07/2020 12:14 AM CDT [facility] Blood BLOOD SPECIMEN / Unknown Venipuncture / Unknown 03/07/2020 12:05 AM CDT 03/07/2020 12:11 AM CDT Tiffanie Nguyen BURN TABLE OPERATOR-QUALITY PROCESS ENGINEER LAB - HEMATOLOG Y ORDERABLES [address] [address], [facility] [phone] * XR ABDOMEN KUB (03/06/2020 10:25 PM CDT) Anatomical Region Laterality Modality Abdomen Radiographic Chayito ging 03/07/2020 10:2 5 AM CDT Impressions 03/08/2020 10:38 AM CDT FINDINGS/IMPRESSION: An enteric tube terminates in the proximal stomach with side port in the distal esophagus; advancement into the stomach is recommended. Dictated by Logan Shi MD (radiology technician). I, Dr. BOGDAN RUBIO have personally reviewed [...] is recommended. Dictated by Logan Shi MD (radiology technician). I, Dr. BOGDAN RUBIO have personally reviewed and interpreted this examination/study. This report was electronically signed by BOGDAN RUBIO on 03/08/2020 10:38AM . Joe Dennison MD DIAGNOSTIC IMAGING O RDERABLES * (ABNORMAL) BLOOD GASES ARTERIAL (03/06/2020 9:21 PM CDT) pH Arterial 7.42 7.35 - 7.45 03/06/2020 9:28 PM [facility] pCO2 Arterial 41 35 - 45 mmHg 03/06/2020 9:28 PM [facility] pO2 Arterial 144(H) 77 - 101 mmHg 03/06/2020 9:28 PM [facility] HCO3 Arterial 26.1(H) 22.0 - 26.0 mmol/L 03/06/2020 9:28 PM [facility] TCO2 Arterial 27.3 25.0 - 29.0 mmol/L 03/06/2020 9:28 PM [facility] Base Excess Arterial 1.5 -2.0 - 2.0 mmol/L 03/06/2020 9:28 PM [facility] Hemoglobin Arterial 8.7(L) 13.5 - 17.5 g/dL 03/06/2020 9:28 PM [facility] Oxyhemoglobin Arterial 97.3 95.0 - 100.0 % 03/06/2020 9:28 PM [facility] Carboxyhemoglobin 0.3 0.0 - 3.0 % 03/06/2020 9:28 PM [facility] Methemoglobin 0.3 0.0 - 2.0 % 03/06/2020 9:28 PM [facility] FI O2 Arterial 60.0 % 03/06/2020 9:28 PM [facility] Blood, arterial ARTERIAL BLOOD SPECIMEN / Unknown Arterial Puncture / Unknown 03/06/2020 9:21 PM CDT 03/06/2020 9:25 PM CDT Bertin Rush DO LAB - BLOOD GASES OR DERABLES [address] [address], [place] [phone] * PTT [facility] (03/06/2020 6:16 PM CDT) APTT 26.0 23.0 - 38.4 Seconds 03/06/2020 6:43 PM CDT [facility] Comment:Suggested therapeuti c range for full dose I.V. unfractionated heparin therapy for venous thromboembolism is 71 to 109 seconds. Blood BLOOD SPECIMEN / Unknown Venipuncture / Unknown 03/06/2020 6:16 PM CDT 03/06/2020 6:30 PM CDT Joe Dennison MD LAB - COAGULATION OR DERABLES Performing Organization Address [facility]/ZIP Co de Phone Number [address] [phone] * PT-INR [facility] (03/06/2020 6:16 PM CDT) Pathologist [facility] PT 14.7 12.1 - 14.8 Seconds 03/06/2020 6:42 PM CDT [facility] INR 1.2 See Comment 03/06/2020 6:42 PM CDT [facility] Comment:The suggested therap eutic range for standard coumadin (warfarin) therapy is an INR of 2.0-3.0. For high-risk patients (Mechanical Mitral Valve Prosthesis, etc.), the suggested prophylactic therapeutic range is an INR of 2.5-3.5. Blood BLOOD SPECIMEN / Unknown Venipuncture / Unknown 03/06/2020 6:16 PM CDT 03/06/2020 6:30 PM CDT Joe Dennison MD LAB - COAGULATION OR DERABLES [address] [address], [facility] [phone] * MAGNESIUM BLOOD (03/06/2020 6:16 PM CDT) Magnesium 2.0 1.6 - 2.6 mg/dL 03/06/2020 6:52 [facility] BLOOD SPEC[facility] / Unknown Venipuncture / Unknown 03/06/2020 6:16 PM CDT 03/06/2020 6:31 PM CDT Joe Dennsion MD LAB - CHEMISTRY CINTHIA [place] Performing Organization Address [facility]/ZIP Co de Phone Number [address] [address], [facility] [phone] * PHOSPHORUS BLOOD (03/06/2020 6:16 PM CDT) Phosphorus 4.4 2.3 - 4.7 mg/dL 03/06/2020 7:13 PM [facility] Comment:Confirmed by repeat analysis. Blood BLOOD SPECIMEN / Unknown Venipuncture / Unknown 03/06/2020 6:16 PM CDT 03/06/2020 6:31 PM CDT Joe Dennison MD LAB - CHEMISTRY CINTHIA [place] Performing Organization Address [facility] Co de Phone Number [address] [address], [facility] [phone] * (ABNORMAL) COMPREHENSIVE METABOLIC PANEL (03/06/2020 6:16 PM CDT) BUN 12 7 - 26 mg/dL 03/06/2020 6:52 PM [facility] Creatinine 0.9 0.6 - 1.2 mg/dL 03/06/2020 6:52 PM [facility] Sodium 141 136 - 145 mmol/L 03/06/2020 6:52 PM [facility] Potassium 4.5 3.5 - 4.5 mmol/L 03/06/2020 6:52 PM [facility] Chloride 108(H) 98 - 107 mmol/L 03/06/2020 6:52 PM [facility] CO2 24 22 - 29 mmol/L 03/06/2020 6:52 PM [facility] Glucose 130(H) 70 - 115 mg/dL 03/06/2020 6:52 PM [facility] Calcium 8.3(L) 8.4 - 10.2 mg/dL 03/06/2020 6:52 PM [facility] Protein Total 5.0(L) 6.0 - 8.3 g/dL 03/06/2020 6:52 PM [facility] Albumin 1.8(L) 3.4 - 5.0 g/dL 03/06/2020 6:52 PM [facility] Bilirubin Total 0.2 0.2 - 1.2 mg/dL 03/06/2020 6:52 PM [facility] Alkaline Phosphatase 73 40 - 150 Units/L 03/06/2020 6:52 PM [facility] ALT 74(H) 0 - 55 Units/L 03/06/2020 6:52 PM [facility] AST 28 5 - 34 Units/L 03/06/2020 6:52 PM [facility] Anion Gap 14 8 - 18 03/06/2020 6:52 PM [facility] BUN/Creatinine Ratio 13 7 - 23 03/06/2020 6:52 PM [facility] Osmolality Calculated 294 270 - 300 mOsm/kg 03/06/2020 6:52 PM [facility] Albumin/Globulin Ratio 0.6(L) 1.1 - 2.3 03/06/2020 6:52 PM [facility] eGFR >60 >60 mL/min/1.7 3 m2 03/06/2020 6:52 PM [facility] Blood BLOOD SPECIMEN / Unknown Venipuncture / Unknown 03/06/2020 6:16 PM CDT 03/06/2020 6:31 PM T Joe Dennison MD LAB - CHEMISTRY CINTHIA [place] [facility] Organization Address City/State/ZIP Co de Phone Number [address] [address], [facility] [phone] * (ABNORMAL) CBC W AUTO DIFFERENTIAL (03/06/2020 6:16 PM T) WBC 15.3(H) 3.5 - 10.5 10? 3 /uL 03/06/2020 6:33 PM [facility] Comment:The WBC count is cor rected by the instrument for nRBC's RBC 3.02(L) 4.30 - 5.70 10? 6 /uL 03/06/2020 6:33 PM [facility] Hemoglobin 8.8(L) 13.5 - 17.5 g/dL 03/06/2020 6:33 PM [facility] Hematocrit 25.4(L) 39.0 - 50.0 % 03/06/2020 6:33 PM [facility] MCV 84.1 81.0 - 97.0 fL 03/06/2020 6:33 PM [facility] MCH 29.1 28.0 - 34.0 pg 03/06/2020 6:33 PM [facility] MCHC 34.6 32.0 - 36.0 g/dL 03/06/2020 6:33 PM [facility] Platelet Count 246 150 - 400 10? 3 /uL 03/06/2020 6:33 PM [facility] RDW-SD 50.7(H) 36.0 - 50.0 fL 03/06/2020 6:33 PM [facility] RDW-CV 16.8(H) 11.2 - 14.8 % 03/06/2020 6:33 PM [facility] MPV 11.8 9.3 - 12.8 fL 03/06/2020 6:33 PM [facility] nRBC Absolute 0.16(H) 0 10? 3 /uL 03/06/2020 6:33 PM [facility] nRBC Auto 1.0(H) 0 /100 WBC 03/06/2020 6:33 PM [facility] Neutrophils % 94.1(H) 35.0 - 70.0 % 03/06/2020 6:33 PM [facility] Lymphocytes % 2.0(L) 19.7 - 55.1 % 03/06/2020 6:33 PM [facility] Monocytes % 2.8(L) 3.0 - 15.0 % 03/06/2020 6:33 PM [facility] Eosinophils % 0.0 0.0 - 6.0 % 03/06/2020 6:33 PM [facility] Basophil % 0.1 0.0 - 1.5 % 03/06/2020 6:33 PM [facility] Neutrophils Absolute 14.4(H) 1.6 - 7.0 10? 3 /uL 03/06/2020 6:33 PM [facility] Lymphocyte Absolute 0.3(L) 0.8 - 2.9 10? 3 /uL 03/06/2020 6:33 PM [facility] Monocytes Absolute 0.43 0.14 - 0.66 10? 3 /uL 03/06/2020 6:33 PM T [facility] Eosinophils Absolute 0.00 0.00 - 0.45 10? 3 /uL 03/06/2020 6:33 PM [facility] Basophils Absolute 0.01 0.00 - 0.06 10? 3 /uL 03/06/2020 6:33 PM [facility] Immature Granulocytes % 1.0 0.0 - 1.0 % 03/06/2020 6:33 PM [facility] Blood BLOOD SPECIMEN / Unknown Venipuncture / Unknown 03/06/2020 6:16 PM CDT 03/06/2020 6:31 PM CDT Joe Dennison MD LAB - HEMATOLOGY ORD ERABLES [address] [address] [phone] * (ABNORMAL) BLOOD GASES ARTERIAL (03/06/2020 6:16 PM CDT) pH Arterial 7.37 7.35 - 7.45 03/06/2020 6:33 PM [facility] pCO2 Arterial 46(H) 35 - 45 mmHg 03/06/2020 6:33 PM [facility] pO2 Arterial 92 77 - 101 mmHg 03/06/2020 6:33 PM [facility] HCO3 Arterial 26.0 22.0 - 26.0 mmol/L 03/06/2020 6:33 PM [facility] TCO2 Arterial 27.4 25.0 - 29.0 mmol/L 03/06/2020 6:33 PM [facility] Base Excess Arterial 0.5 -2.0 - 2.0 mmol/L 03/06/2020 6:33 PM [facility] Hemoglobin Arterial 8.6(L) 13.5 - 17.5 g/dL 03/06/2020 6:33 PM CDT [facility] Oxyhemoglobin Arterial 94.7(L) 95.0 - 100.0 % 03/06/2020 6:33 PM CDT [facility] Carboxyhemoglobin 0.3 0.0 - 3.0 % 03/06/2020 6:33 PM CDT [facility] Methemoglobin 0.8 0.0 - 2.0 % 03/06/2020 6:33 PM CDT [facility] FI O2 Arterial 60.0 % 03/06/2020 6:33 PM CDT [facility] Blood, arterial ARTERIAL BLOOD SPECIMEN / Unknown Arterial Puncture / Unknown 03/06/2020 6:16 PM CDT 03/06/2020 6:30 PM CDT Joe Dennison MD LAB - BLOOD GASES OR DERABLES Performing Organization Address [facility]/State/[facility] Co de Phone Number [address] [address] [phone] * XR CHEST 1VW PORTABLE (03/06/2020 4:47 [...] or pneumothorax. Dictated by Logan Shi MD (radiology technician). I, Dr. JOHN BLUM MD have personally [...] or pneumothorax. Dictated by Logan Shi MD (radiology technician). I, Dr. JOHN BLUM MD have personally reviewed and interpreted this examination/study. This report was electronically signed by JOHN BLUM MD on03/07/2020 2:25 PM . Elkin Rosenbaum MD DIAGNOSTIC IMAGING O RDERABLES * PATHOLOGY TISSUE (03/06/2020 3:46 PM CDT) Case Report Surgical Pathology Report ? Case: [id number] ? Authorizing Provider: ??Elkin Rosenbaum MD ? Collected: ? 03/06/2020 03:46 PM ? Ordering Location: ? [facility] ? Received: ?03/07/2020 08:15 AM ? Pathologist: ? Alecia Abel MD ? Specimen: ?Lung, Right Middle Lobe, transbronchial lung biopsy RML ? 03/09/2020 3:06 PM CDT [facility] Final Diagnosis Lung, right middle lobe, transbronchial biopsy: - Reactive alveolar parenchyma with mild chronic inflammation 03/09/2020 3:06 PM [facility] Microscopic Description and Comment [...] are negative for micro-organisms. 03/09/2020 3:06 PM [facility] Clinical History The patient [...] Procedure: Transbronchial lung biopsy 03/09/2020 3:06 PM [facility] Gross Description The requisition and specimen(s) are labeled with the patient's name, Jalil Luis. Received in formalin, specimen A , are 3 castillo-white tissue fragment 0.1 cm in greatest dimension, with an aggregate measurement of 0.6 x 0.1 x 0.1 cm. Specimen is submitted in toto in cassette A1. KK 03/09/2020 3:06 PM [facility] Disclaimer The performance characteristics of all immunohistochemical and indirect immunofluorescence stains (if any) cited in this report were determined by the Histopathology Laboratory of [facility]. Some of these tests were developed by [...] attending (teaching) pathologist. 03/09/2020 3:06 PM CDT [facility] Embedded Images 03/09/2020 3:06 PM CDT [facility] Biopsy, Excision (Lung, Right Middle Lobe) 03/06/2020 3:46 PM CDT 03/07/2020 8:15 AM CDT Comment:Pre-op diagnosis: Abnormal CXR [R93.89] Elkin Rosenbaum MD LAB - PATHOLOGY/CYTO LOGY ORDERABLES Performing Organization Address [facility]/ZIP Co de Phone Number [facility] [address], [place] [address] [phone] * DIFFERENTIAL MANUAL FLUID (03/06/2020 3:41 PM CDT) Band Relative % Fluid 3 % 03/06/2020 5:36 PM CDT [facility] Segs % Fluid 64 % 03/06/2020 5:36 PM CDT [facility] Lymphocytes % Fluid 11 % 03/06/2020 5:36 PM CDT [facility] Monocytes % Fluid 16 % 03/06/2020 5:36 PM CDT [facility] Macrophages % Fluid 3 % 03/06/2020 5:36 PM CDT [facility] Atypical Lymphs % Fluid 3 % 03/06/2020 5:36 PM CDT [facility] Fluid BRONCHIOLOALVEOLAR LAVAGE / Unknown Collection / Unknown 03/06/2020 3:41 PM CDT 03/06/2020 3:53 PM CDT Elkin Rosenbaum MD LAB - BODY FLUID ORD ERABLES [facility] [address] [place] [address], [facility] [phone] * CYTOLOGY NON-HANDY MAN PANEL (STL) (03/06/2020 3:41 PM CDT) Case Report Medical Cytology Report ? Case: [id number] ? Authorizing Provider: ??Elkin Rosenbaum MD ? Collected: ? 03/06/2020 03:41 PM ? Ordering Location: ? [facility] ? Received: ?03/07/2020 07:01 AM ? Pathologist: ? Nick Gutierrez MD ? Specimen: ?Bronch Alveolar Lav, RML ? 03/08/2020 2:56 PM [facility]T [facility] Specimen Adequacy Adequate cellularity for evaluation. 03/08/2020 2:56 PM [facility] Final Diagnosis Bronchial alveolar lavage, cytology: - Negative for malignancy - Macrophages, bronchial cells, and mucin - GMS stain is negative for fungal elements 03/08/2020 2:56 PM CDT [facility] Clinical History Fever, unspecified fever cause 03/08/2020 2:56 PM [facility] Gross Description 1 pap stained cytospin slide and 1 cell block from 30cc collection fluid. 03/08/2020 2:56 PM [facility] Microscopic Description Performed. 03/08/2020 2:56 PM CDT [facility] Disclaimer The performance characteristics of all immunohistochemical and indirect immunofluorescence stains (if any) cited in this report were determined by the Histopathology Laboratory of [facility]. Some of these tests rely on the use of analyte-specific reagents and are subject to specific labeling requirements by the [place] Food and Drug Administration. Such tests were developed by the Histology Laboratory of [facility] and have not been cleared or [...] attending (teaching) pathologist. 03/08/2020 2:56 PM CDT [facility] Embedded Images 03/08/2020 2:56 PM CDT [facility] Pathology/Cytol ogy BRONCHIOLOALVEOLAR LAVAGE / Unknown Collection / Unknown 03/06/2020 3:41 PM CDT 03/07/2020 7:01 AM CDT Elkin Rosenbaum MD LAB - PATHOLOGY/CYTO LOGY ORDERABLES Performing Organization Address [facility] Co de Phone Number [facility] [address] [facility]. [address] [phone] * FLOW CYTOMETRY BODY FLUID (03/06/2020 3:41 PM CDT) Case Report Flow Cytometry ?Case: [id number] ? Authorizing Provider: ??Elkin Rosenbaum MD ? Collected: ? 03/06/2020 03:41 PM ? Ordering Location: ? [facility] ? Received: ?03/06/2020 04:11 PM ? Pathologist: ? Margaret Hooker Mai, DO ? Specimen: ?Body Fluid ? 03/07/2020 10:38 AM [facility] Final Diagnosis Body fluid, RML, flow cytometric immunophenotypic analysis: - Insufficient hematopoietic cells for analysis. - See interpretation. 03/07/2020 10:38 AM [facility] Flow Cytometry Interpretation Preliminary characterization of the body fluid, RML, specimen demonstrates too few hematopoietic cells for flow cytometric analysis. A cytospin prepared from the flow cytometry specimen is reviewed for quality improvement specialist purposes. Flow cytometry is not performed. 03/07/2020 10:38 AM [facility] Flow Cytometry Results Too few hematopoetic cells for flow cytometric analysis. 03/07/2020 10:38 AM [facility] Client Specimen ID # [id number] 03/07/2020 10:38 AM [facility] Reason for test Fever, unspecified fever cause 03/07/2020 10:38 AM [facility] Disclaimer Test performed at [facility], [address] [place] [address], [address]. *The established laboratory minimum viability is 70%. [...] complexity clinical testing. 03/07/2020 10:38 AM CDT [facility] Embedded Images 0 10:38 AM CDT [facility] Fluid BODY FLUID SPECIMEN / Unknown Collection / Unknown 03/06/2020 3:41 PM CDT 03/06/2020 4:11 PM CDT Comment:RML Elkin Rosenbaum MD LAB - PATHOLOGY/CYTO LOGY ORDERABLES Performing Organization Address City/[facility]/ZIP Co de Phone Number [facility] [address] [place] [address], [facility] [phone] * (ABNORMAL) CELL COUNT W DIFFERENTIAL FLUID (03/06/2020 3:41 PM CDT) Color Fluid [place](A) Colorles s, Straw 03/06/2020 5:01 PM CDT [facility] Clarity Fluid Clear Clear 03/06/2020 5:01 PM CDT [facility] Volume Fluid 5.0 mL 03/06/2020 5:01 PM CDT [facility] WBC Calculation Fluid 48 /uL 03/06/2020 5:01 PM CDT [facility] RBC Calculation 2,010 /uL 0 5:01 PM CDT [facility] Differential Manual Differential to follow. 03/06/2020 5:01 PM CDT [facility] Fluid BRONCHIOLOALVEOLAR LAVAGE / Unknown Collection / Unknown 03/06/2020 3:41 PM CDT 03/06/2020 3:53 PM CDT Narrative [facility] - 03/06/2020 5:01 PM CDT No reference ranges established for body fluid cell counts. The reference ranges provided are derived from published literature. The test results must be integrated into the clinical context for interpretation. Elkin Rosenbaum MD LAB - BODY FLUID ORD ERABLES Performing Organization Address City/[facility]/ZIP Co de Phone Number [facility] [address] [place] [phone], [facility] [phone] * LAB MISC TEST (03/06/2020 3:41 PM CDT) Test Name Coronavirus (COVID-19) SARS-CoV-2 PCR 05/02/2020 10:42 AM CDT [facility] Test Result See Scanned Report 05/02/2020 10:42 AM CDT [facility] Blood MISCELLANEOUS SAMPLES / Unknown Venipuncture / Unknown 03/06/2020 3:41 PM CDT 03/07/2020 8:23 AM CDT Joce Damian DO LAB SEND OUT Performing Organization Address City/[facility]/ZIP Co de Phone Number [facility] [address] [place] [address] * CULTURE FUNGUS OTHER+FUNGUS SMEAR (03/06/2020 3:37 PM CDT) Pathologist [facility] Culture No fungus isolated SPENCER 04/03/2020 12:08 PM CDT [facility] Fungus Stain No yeast or hyphae seen 04/03/2020 12:08 PM CDT [facility] Fungus Stain No Pneumocystis jirovecii 04/03/2020 12:08 PM CDT [facility] Microbiology BRONCHIOLOALVEOLAR LAVAGE / Unknown Collection / Unknown 03/06/2020 3:37 PM CDT 03/06/2020 4:10 PM CDT Elkin Rosenbaum MD LAB - MICROBIOLOGY O RDLEONIE Performing Organization Address [facility] Co de Phone Number [facility] [address] [place], [place] [address], [facility] [phone] * HHV-6 QUANTITATIVE PCR (03/06/2020 3:36 PM CDT) Pathologist [facility] See Scanned Document SEE SCANNED REPORT 03/09/2020 7:54 AM CDT [facility] REF LAB NON INTERF Microbiology BRONCHIOLOALVEOLAR LAVAGE / Unknown Collection / Unknown 03/06/2020 3:36 PM CDT 03/06/2020 4:06 PM CDT Elkin Rosenbaum MD LAB - MICROBIOLOGY O LEONARD Performing Organization Address City/[facility]/ZIP Co de Phone Number [facility] REF LAB NON INTERF [address] [place], [place] [id number] * ADENOVIRUS PCR QUANTITATIVE (VIRACOR) (03/06/2020 3:36 PM CDT) See Scanned Document SEE SCANNED REPORT 03/09/2020 7:59 AM CDT [facility] REF LAB NON INTERF Microbiology BRONCHIOLOALVEOLAR LAVAGE / Unknown Collection / Unknown 03/06/2020 3:36 PM CDT 03/06/2020 4:06 PM CDT Elkin Rosenbaum MD LAB - MICROBIOLOGY O LEONARD Performing Organization Address [facility] Co de Phone Number [facility] REF LAB NON INTERF [address] [place], [place] [address] * CYTOMEGALOVIRUS DNA RT-PCR QUANT (03/06/2020 3:36 PM CDT) See Scanned Document SEE SCANNED REPORT 03/09/2020 8:01 AM CDT [facility] REF LAB NON INTERF Microbiology BRONCHIOLOALVEOLAR LAVAGE / Unknown Collection / Unknown 03/06/2020 3:36 PM CDT 03/06/2020 4:06 PM CDT Elkin Rosenbaum MD LAB - MICROBIOLOGY O LEONARD Performing Organization Address [facility] de Phone Number [facility] REF LAB NON INTERF [address] [place] [phone], [place] * FUNGAL PLUS PCR PROFILE II (03/06/2020 3:36 PM CDT) See Scanned Document See Scanned Report 03/08/2020 9:45 AM CDT [facility] REF LAB NON INTERF Microbiology BRONCHIOLOALVEOLAR LAVAGE / Unknown Collection / Unknown 03/06/2020 3:36 PM CDT 03/06/2020 4:08 PM CDT Elkin Rosenbaum MD LAB - MICROBIOLOGY O LEONARD Performing Organization Address [facility] Co de Phone Number SELECT [facility] NON INTERF [address] [place] [address] * ASPERGILLUS GALACTOMANNAN BAL/BLOOD (03/06/2020 3:36 PM CDT) [facility] See Scanned Document See Scanned Report 03/08/2020 9:47 AM CDT [facility] NON INTERF Microbiology BRONCHIOLOALVEOLAR LAVAGE / Unknown Collection / Unknown 03/06/2020 3:36 PM CDT 03/06/2020 4:08 PM CDT Elkin Rosenbaum MD LAB - MICROBIOLOGY O RDERABLES [facility] RE[facility] NON INTERF [address] [place] [address] [place] [address] * RESPIRATORY PATHOGEN PANEL BY PCR (03/06/2020 3:36 PM CDT) [facility] Adenovirus PCR Not detected Not detected, Invalid, Indeterminate 03/06/2020 11:19 PM CDT [facility] Coronavirus PCR Not detected Not detected, Invalid, Indeterminate 03/06/2020 11:19 PM CDT [facility] Human Metapneumovirus PCR Not detected Not detected, Invalid, Indeterminate 03/06/2020 11:19 PM CDT [facility] Human Rhinovirus/Entero virus PCR Not detected Not detected, Invalid, Indeterminate 03/06/2020 11:19 PM CDT [facility] Influenza A PCR Not detected Not detected, Equivocal, Invalid, Indeterminate 03/06/2020 11:19 PM CDT [facility] Influenza B PCR Not detected Not detected, Invalid, Indeterminate 03/06/2020 11:19 PM CDT [facility] Parainfluenza Virus 1 PCR Not detected Not detected, Invalid, Indeterminate 03/06/2020 11:19 PM CDT [facility] Parainfluenza Virus 2 PCR Not detected Not detected, Invalid, Indeterminate 03/06/2020 11:19 PM CDT [facility] Parainfluenza Virus 3 PCR Not detected Not detected, Invalid, Indeterminate 03/06/2020 11:19 PM CDT [facility] Parainfluenza Virus 4 PCR Not detected Not detected, Invalid, Indeterminate 03/06/2020 11:19 PM CDT [facility] Respiratory Syncytial Virus PCR Not detected Not detected, Invalid, Indeterminate 03/06/2020 11:19 PM CDT [facility] Bordetella pertussis PCR Not detected Not detected, Invalid 03/06/2020 11:19 PM CDT [facility] Chlamydia pneumoniae PCR Not detected Not detected, Invalid, Indeterminate 03/06/2020 11:19 PM CDT [facility] Mycoplasma pneumoniae PCR Not detected Not detected, Invalid, Indeterminate 03/06/2020 11:19 PM CDT [facility] Microbiology BRONCHIOLOALVEOLAR LAVAGE / Unknown Collection / Unknown 03/06/2020 3:36 PM CDT 03/06/2020 4:10 PM CDT Narrative [facility] - 03/06/2020 11:19 PM CDT This test is able to detect the following human coronaviruses: HKU1, NL63, 229E, and OC43. It will NOT detect 2019 Novel Coronavirus (2019-nCoV). If 2019-nCoV is suspected contact Infection Prevention for isolation and testing guidance. Elkin Rosenbaum MD LAB - MICROBIOLOGY O LEONARD [facility]CRO[facility] [address] [place] [address], [facility] [phone] * CULTURE BRONCHOALVEOLAR LAVAGE QNT+GRAM STAIN (03/06/2020 3:36 PM CDT) Culture No growth SPENCER 03/08/2020 8:06 AM CDT [facility] Gram Stain Light Polymorphonuclear cells 03/08/2020 8:06 AM CDT [facility] Gram Stain No organisms seen 020 8:06 AM CDT [facility] Microbiology BRONCHIOLOALVEOLAR LAVAGE / Unknown Collection / Unknown 03/06/2020 3:36 PM CDT 03/06/2020 4:10 PM CDT Elkin Rosenbaum MD LAB - MICROBIOLOGY O LEONARD [facility] [address] [place] [address], [facility] [phone] * CULTURE AFB+SMEAR (03/06/2020 3:36 PM CDT) Culture No acid-fast bacillus isolated 04/17/2020 10:13 AM CDT [facility] AFB Smear No acid-fast bacilli seen 04/17/2020 10:13 AM CDT [facility] Microbiology BRONCHIOLOALVEOLAR LAVAGE / Unknown Collection / Unknown 03/06/2020 3:36 PM CDT 03/06/2020 4:10 PM CDT Elkin Rosenbaum MD LAB - MICROBIOLOGY O RDERABLES [facility] [address] [place] [address], [facility] [phone] * (ABNORMAL) SARS-COV-2 (COVID-19) IN HOUSE (03/06/2020 2:45 PM CDT) COVID-19 PCR Detected( AA) Not detected, Invalid 03/07/2020 11:57 AM CDT [facility] Microbiology SPECIMEN FROM NASOPHARYNGEAL STRUCTURE / Unknown Collection / Unknown 03/06/2020 2:45 PM CDT 03/06/2020 4:12 PM CDT Narrative [facility] - 03/07/2020 11:57 AM CDT This Real Time RT-PCR assay was developed and its performance characteristics determined by [facility]. This test has been [...] Raines MD LAB - MICROBIOLOGY O LEONARD Performing Organization Address [facility]/ZIP Co de Phone Number [facility] MICROBIOLOGY [address] [place] [address], [facility] [phone] * CULTURE BRONCHIAL BRUSHINGS QUANT (03/06/2020 2:45 PM CDT) Culture No growth SPENCER 03/08/2020 8:06 AM CDT [facility] Microbiology BRONCHIAL BRUSHINGS SPECIMEN / Unknown Collection / Unknown 03/06/2020 2:45 PM CDT 03/06/2020 4:10 PM CDT Elkin Rosenbaum MD LAB - MICROBIOLOGY O LEONARD Performing Organization Address [facility] de Phone Number [employer] MICROBIOLOGY [address] [place] [address], [facility] [phone] * BRONCHOSCOPY (03/06/2020 12:40 PM CDT) Report Endoscopy POC [facility] Advanced Diagnostic Bronchoscopy and Interventional Pulmonary Service __ _ Patient Name: Jalil Luis ?Procedure Date: 03/06/2020 12:40 PM Date of : 1970 ?Attending MD: Elkin Rosenbaum MD Age: 49 ? Room: Bronch Suite ? __ _ Providers: ?Elkin Rosenbaum, , Krupa Raines MD (Fellow), Jorge Luis Saldaña [...] 12:40 PM Number of Addenda: 0 ? [facility] ? [address] at [address] [employer] 03/06/2020 12:4 0 PM CDT Elkin Rosenbaum MD RESPIRATORY THERAPY ORDERABLES Performing Organization Address [facility]/ZIP Co de Phone Number [facility] [employer] * (ABNORMAL) PHOSPHORUS BLOOD (03/05/2020 11:53 PM CDT) Phosphorus 2.0(L) 2.3 - 4.7 mg/dL 03/06/2020 12:28 AM CDT [facility] Blood BLOOD SPECIMEN / Unknown Lab Venipuncture / Unknown 03/05/2020 11:53 PM CDT 03/06/2020 12:04 AM CDT Tiffanie Nguyen BURN TABLE OPERATOR-QUALITY PROCESS ENGINEER LAB - CHEMISTRY ORDERABLES Performing Organization Address [facility] Co de Phone Number [address] [phone] * MAGNESIUM BLOOD (03/05/2020 11:53 PM CDT) Magnesium 1.9 1.6 - 2.6 mg/dL 03/06/2020 12:28 AM CDT [facility] Blood BLOOD SPECIMEN / Unknown Lab Venipuncture / Unknown 03/05/2020 11:53 PM CDT 03/06/2020 12:04 AM CDT Tiffanie Nguyen BURN TABLE OPERATOR-[facility] LAB - CHEMISTRY ORDERABLES Performing Organization Address [facility]/ZIP Co de Phone Number [address] [phone] * (ABNORMAL) COMPREHENSIVE METABOLIC PANEL (03/05/2020 11:53 PM CDT) BUN 15 7 - 26 mg/dL 03/06/2020 12:28 AM CDT [facility] Creatinine 0.9 0.6 - 1.2 mg/dL 03/06/2020 12:28 AM CDT [facility] Sodium 138 136 - 145 mmol/L 03/06/2020 12:28 AM [facility] Potassium 3.8 3.5 - 4.5 mmol/L 03/06/2020 12:28 AM [facility] Chloride 104 98 - 107 mmol/L 03/06/2020 12:28 AM [facility] CO2 22 22 - 29 mmol/L 03/06/2020 12:28 AM [facility] Glucose 138(H) 70 - 115 mg/dL 03/06/2020 12:28 AM [facility] Calcium 8.1(L) 8.4 - 10.2 mg/dL 03/06/2020 12:28 AM [facility] Protein Total 5.2(L) 6.0 - 8.3 g/dL 03/06/2020 12:28 AM [facility] Albumin 1.9(L) 3.4 - 5.0 g/dL 03/06/2020 12:28 AM [facility] Bilirubin Total 0.3 0.2 - 1.2 mg/dL 03/06/2020 12:28 AM [facility] Alkaline Phosphatase 81 40 - 150 Units/L 03/06/2020 12:28 AM [facility] ALT 93(H) 0 - 55 Units/L 03/06/2020 12:28 AM [facility] AST 47(H) 5 - 34 Units/L 03/06/2020 12:28 AM [facility] Anion Gap 16 8 - 18 03/06/2020 12:28 AM [facility] BUN/Creatinine Ratio 17 7 - 23 03/06/2020 12:28 AM [facility] Osmolality Calculated 289 270 - 300 mOsm/kg 03/06/2020 12:28 AM [facility] Albumin/Globulin Ratio 0.6(L) 1.1 - 2.3 03/06/2020 12:28 AM [facility] eGFR >60 >60 mL/min/1.7 3 m2 03/06/2020 12:28 AM [facility] Blood BLOOD SPECIMEN / Unknown Lab Venipuncture / Unknown 03/05/2020 11:53 PM CDT 03/06/2020 12:04 AM CDT Tiffanie Nguyen BURN TABLE OPERATOR-QUALITY PROCESS ENGINEER LAB - CHEMISTRY ORDERABLES [facility] [address] [place] [address], [facility] [phone] * (ABNORMAL) CBC W AUTO DIFFERENTIAL (03/05/2020 11:53 PM CDT) WBC 16.7(H) 3.5 - 10.5 10? 3 /uL 03/06/2020 12:06 AM [facility] Comment:The WBC count is cor rected by the instrument for nRBC's RBC 3.39(L) 4.30 - 5.70 10? 6 /uL 03/06/2020 12:06 AM [facility] Hemoglobin 9.8(L) 13.5 - 17.5 g/dL 03/06/2020 12:06 AM [facility] Hematocrit 28.4(L) 39.0 - 50.0 % 03/06/2020 12:06 AM [facility] MCV 83.8 81.0 - 97.0 fL 03/06/2020 12:06 AM [facility] MCH 28.9 28.0 - 34.0 pg 03/06/2020 12:06 AM [facility] MCHC 34.5 32.0 - 36.0 g/dL 03/06/2020 12:06 AM [facility] Platelet Count 266 150 - 400 10? 3 /uL 03/06/2020 12:06 AM [facility] RDW-SD 48.8 36.0 - 50.0 fL 03/06/2020 12:06 AM [facility] RDW-CV 16.2(H) 11.2 - 14.8 % 03/06/2020 12:06 AM [facility] MPV 11.6 9.3 - 12.8 fL 03/06/2020 12:06 AM [facility] nRBC Absolute 0.20(H) 0 10? 3 /uL 03/06/2020 12:06 AM [facility] nRBC Auto 1.2(H) 0 /100 WBC 03/06/2020 12:06 AM [facility] Neutrophils % 92.1(H) 35.0 - 70.0 % 03/06/2020 12:06 AM [facility] Lymphocytes % 3.7(L) 19.7 - 55.1 % 03/06/2020 12:06 AM [facility] Monocytes % 3.2 3.0 - 15.0 % 03/06/2020 12:06 AM [facility] Eosinophils % 0.0 0.0 - 6.0 % 03/06/2020 12:06 AM [facility] Basophil % 0.1 0.0 - 1.5 % 03/06/2020 12:06 AM [facility] Neutrophils Absolute 15.4(H) 1.6 - 7.0 10? 3 /uL 03/06/2020 12:06 AM [facility] Lymphocyte Absolute 0.6(L) 0.8 - 2.9 10? 3 /uL 03/06/2020 12:06 AM [facility] Monocytes Absolute 0.54 0.14 - 0.66 10? 3 /uL 03/06/2020 12:06 AM [facility] Eosinophils Absolute 0.00 0.00 - 0.45 10? 3 /uL 03/06/2020 12:06 AM [facility] Basophils Absolute 0.02 0.00 - 0.06 10? 3 /uL 03/06/2020 12:06 AM [facility] Immature Granulocytes % 0.9 0.0 - 1.0 % 03/06/2020 12:06 AM [facility] Blood BLOOD SPECIMEN / Unknown Lab Venipuncture / Unknown 03/05/2020 11:53 PM CDT 03/06/2020 12:04 AM CDT Tiffanie Nguyen BURN TABLE OPERATOR-QUALITY PROCESS ENGINEER LAB - HEMATOLOG Y ORDERABLES [address] [address] [phone] * VANCOMYCIN LEVEL TROUGH (03/05/2020 5:33 PM CDT) Vancomycin Trough 19.6 10.0 - 20.0 mcg/mL 03/05/2020 7:02 PM CDT [facility] Blood BLOOD SPECIMEN / Unknown Lab Venipuncture / Unknown 03/05/2020 5:33 PM CDT 03/05/2020 6:29 PM CDT Alida Marshall BURN TABLE OPERATOR-QUALITY PROCESS ENGINEER LAB - CHEMISTRY ORDERABLES [address] [address], [facility] [phone] * XR CHEST 1VW PORTABLE (03/05/2020 1:44 PM CDT) Anatomical Region Laterality Modality Chest Radiographic Chayito ging 03/05/2020 4:06 PM CDT Impressions 03/06/2020 8:31 AM CDT FINDINGS/IMPRESSION: Increase in diffuse patchy airspace opacities in bilateral lungs concerning for multifocal pneumonia. Small left pleural effusion is suggested. There is no pneumothorax. The cardiomediastinal silhouette is normal. Dictated by Mary Ellen Ty MD (Resident). Dr. BOGDAN Harris have personally reviewed and [...] Dictated by Mary Ellen Ty MD (Resident). Dr. BOGDAN Harris have personally reviewed and interpreted this examination/study. This report was electronically signed by BOGDAN RUBIO on 03/06/2020 8:31 AM. Alida Marshall [facility] DIAGNOSTIC IMAG ING ORDERABLES * PHOSPHORUS BLOOD (03/04/2020 11:27 PM CDT) Phosphorus 2.4 2.3 - 4.7 mg/dL 03/04/2020 11:52 PM CDT [facility] Blood BLOOD SPECIMEN / Unknown Lab Venipuncture / Unknown 03/04/2020 11:27 PM CDT 03/04/2020 11:32 PM CDT Lara Patrick [facility] LAB - [place] [address], [facility] [phone] * MAGNESIUM BLOOD (03/04/2020 11:27 PM CDT) Pathologist [facility] Magnesium 2.3 1.6 - 2.6 mg/dL 03/04/2020 11:52 PM CDT [facility] Blood BLOOD SPECIMEN / Unknown Lab Venipuncture / Unknown 03/04/2020 11:27 PM CDT 03/04/2020 11:32 PM CDT Tiffanie Nguyen [facility] LAB - [place]MI[place] [address], [facility] [phone] * (ABNORMAL) COMPREHENSIVE METABOLIC PANEL (03/04/2020 11:27 PM CDT) BUN 13 7 - 26 mg/dL 03/04/2020 11:52 PM CDT [facility] Creatinine 0.8 0.6 - 1.2 mg/dL 03/04/2020 11:52 PM CDT [facility] Sodium 139 136 - 145 mmol/L 03/04/2020 11:52 PM CDT [facility] Potassium 4.1 3.5 - 4.5 mmol/L 03/04/2020 11:52 PM CDT [facility] Chloride 106 98 - 107 mmol/L 03/04/2020 11:52 PM [facility] CO2 21(L) 22 - 29 mmol/L 03/04/2020 11:52 PM [facility] Glucose 129(H) 70 - 115 mg/dL 03/04/2020 11:52 PM [facility] Calcium 8.4 8.4 - 10.2 mg/dL 03/04/2020 11:52 PM [facility] Protein Total 5.5(L) 6.0 - 8.3 g/dL 03/04/2020 11:52 PM [facility] Albumin 2.1(L) 3.4 - 5.0 g/dL 03/04/2020 11:52 PM [facility] Bilirubin Total 0.3 0.2 - 1.2 mg/dL 03/04/2020 11:52 PM [facility] Alkaline Phosphatase 90 40 - 150 Units/L 03/04/2020 11:52 PM [facility] ALT 70(H) 0 - 55 Units/L 03/04/2020 11:52 PM [facility] AST 39(H) 5 - 34 Units/L 03/04/2020 11:52 PM [facility] Anion Gap 16 8 - 18 03/04/2020 11:52 PM [facility] BUN/Creatinine Ratio 16 7 - 23 03/04/2020 11:52 PM [facility] Osmolality Calculated 290 270 - 300 mOsm/kg 03/04/2020 11:52 PM [facility] Albumin/Globulin Ratio 0.6(L) 1.1 - 2.3 03/04/2020 11:52 PM [facility] eGFR >60 >60 mL/min/1.7 3 m2 03/04/2020 11:52 PM [facility] Blood BLOOD SPECIMEN / Unknown Lab Venipuncture / Unknown 03/04/2020 11:27 PM CDT 03/04/2020 11:32 PM [facility] Tiffanie Nguyen BURN TABLE OPERATOR-QUALITY PROCESS ENGINEER LAB - CHEMISTRY ORDERABLES [address] [address] [phone] * (ABNORMAL) CBC W AUTO DIFFERENTIAL (03/04/2020 11:27 PM [facility]) WBC 13.3(H) 3.5 - 10.5 10? 3 /uL 03/04/2020 11:38 PM [facility] Comment:The WBC count is cor rected by the instrument for nRBC's RBC 3.70(L) 4.30 - 5.70 10? 6 /uL 03/04/2020 11:38 PM [facility] Hemoglobin 10.8(L) 13.5 - 17.5 g/dL 03/04/2020 11:38 PM [facility] Hematocrit 30.7(L) 39.0 - 50.0 % 03/04/2020 11:38 PM [facility] MCV 83.0 81.0 - 97.0 fL 03/04/2020 11:38 PM [facility] MCH 29.2 28.0 - 34.0 pg 03/04/2020 11:38 PM [facility] MCHC 35.2 32.0 - 36.0 g/dL 03/04/2020 11:38 PM [facility] Platelet Count 252 150 - 400 10? 3 /uL 03/04/2020 11:38 PM [facility] RDW-SD 47.4 36.0 - 50.0 fL 03/04/2020 11:38 PM [facility] RDW-CV 16.0(H) 11.2 - 14.8 % 03/04/2020 11:38 [facility] MPV 10.7 9.3 - 12.8 fL 03/04/2020 11:38 PM [facility] nRBC Absolute 0.17(H) 0 10? 3 /uL 03/04/2020 11:38 PM [facility] nRBC Auto 1.3(H) 0 /100 WBC 03/04/2020 11:38 [facility] Comment:Checked with the pre vious result. Neutrophils % 89.4(H) 35.0 - 70.0 % 03/04/2020 11:38 [facility] Lymphocytes % 4.6(L) 19.7 - 55.1 % 03/04/2020 11:38 PM CDT [facility] Monocytes % 4.8 3.0 - 15.0 % 03/04/2020 11:38 PM CDT [facility] Eosinophils % 0.0 0.0 - 6.0 % 03/04/2020 11:38 PM CDT [facility] Basophil % 0.2 0.0 - 1.5 % 03/04/2020 11:38 PM CDT [facility] Neutrophils Absolute 11.9(H) 1.6 - 7.0 10? 3 /uL 03/04/2020 11:38 PM CDT [facility] Lymphocyte Absolute 0.6(L) 0.8 - 2.9 10? 3 /uL 03/04/2020 11:38 PM CDT [facility] Monocytes Absolute 0.64 0.14 - 0.66 10? 3 /uL 03/04/2020 11:38 PM CDT [facility] Eosinophils Absolute 0.00 0.00 - 0.45 10? 3 /uL 03/04/2020 11:38 PM CDT [facility] Basophils Absolute 0.02 0.00 - 0.06 10? 3 /uL 03/04/2020 11:38 PM CDT [facility] Immature Granulocytes % 1.0 0.0 - 1.0 % 03/04/2020 11:38 PM CDT [facility] Blood BLOOD SPECIMEN / Unknown Lab Venipuncture / Unknown 03/04/2020 11:27 PM CDT 03/04/2020 11:32 PM CDT Tiffanie Nguyen BURN TABLE OPERATOR-QUALITY PROCESS ENGINEER LAB - HEMATOLOG Y ORDERABLES [address] [address] [phone] * SARS-COV-2 (COVID-19) IN HOUSE (03/04/2020 10:45 AM CDT) COVID-19 PCR Not detected Not detected, Invalid 03/05/2020 6:23 AM CDT [facility] Microbiology SPECIMEN FROM NASOPHARYNGEAL STRUCTURE / Unknown Collection / Unknown 03/04/2020 10:45 AM CDT 03/04/2020 10:57 AM CDT Narrative [facility] - 03/05/2020 6:23 AM CDT This Real Time RT-PCR assay was developed and its performance characteristics determined by [facility]. This test has been [...] is terminated or revoked sooner. Rafaela Sood APRN-QUALITY PROCESS ENGINEER LAB - MICROBIO LOGY ORDERABLES [facility] [address] [place] [address], [facility] [phone] * LACTIC ACID BLOOD (03/04/2020 5:51 AM CDT) [facility] Lactic Acid-Stat 1.0 0.5 - 2.2 mmol/L 03/04/2020 6:17 AM CDT [facility] Blood BLOOD SPECIMEN / Unknown Lab Venipuncture / Unknown 03/04/2020 5:51 AM CDT 03/04/2020 5:59 AM CDT Keli Case BURN TABLE OPERATOR-QUALITY PROCESS ENGINEER LAB - CHEMISTRY O RDERABLES [facility] [address] [place] [address], [facility] [phone] * PHOSPHORUS BLOOD (03/03/2020 11:45 PM CDT) [facility] Phosphorus 3.3 2.3 - 4.7 mg/dL 03/04/2020 12:32 AM T [facility] Blood BLOOD SPECIMEN / Unknown Lab Venipuncture / Unknown 03/03/2020 11:45 PM CDT 03/04/2020 12:04 AM CDT Tiffanie Nguyen BURN TABLE OPERATOR-QUALITY PROCESS ENGINEER LAB - CHEMISTRY ORDERABLES [place] [address], [facility] [phone] * MAGNESIUM BLOOD (03/03/2020 11:45 PM CDT) Magnesium 1.7 1.6 - 2.6 mg/dL 03/04/2020 12:32 AM [facility] Blood BLOOD SPECIMEN / Unknown Lab Venipuncture / Unknown 03/03/2020 11:45 PM CDT 03/04/2020 12:04 AM CDT Tiffanie Seymour Patrick BURN TABLE OPERATOR-QUALITY PROCESS ENGINEER LAB - CHEMISTRY ORDERABLES [place] [address], [facility] [phone] * (ABNORMAL) COMPREHENSIVE METABOLIC PANEL (03/03/2020 11:45 PM CDT) BUN 14 7 - 26 mg/dL 03/04/2020 12:32 AM [facility] Creatinine 1.1 0.6 - 1.2 mg/dL 03/04/2020 12:32 AM [facility] Sodium 136 136 - 145 mmol/L 03/04/2020 12:32 AM [facility] Potassium 3.7 3.5 - 4.5 mmol/L 03/04/2020 12:32 AM [facility] Chloride 103 98 - 107 mmol/L 03/04/2020 12:32 AM [facility] CO2 19(L) 22 - 29 mmol/L 03/04/2020 12:32 AM [facility] Glucose 99 70 - 115 mg/dL 03/04/2020 12:32 AM [facility] Calcium 7.6(L) 8.4 - 10.2 mg/dL 03/04/2020 12:32 AM [facility] Protein Total 5.0(L) 6.0 - 8.3 g/dL 03/04/2020 12:32 AM [facility] Albumin 2.0(L) 3.4 - 5.0 g/dL 03/04/2020 12:32 AM [facility] Bilirubin Total 0.4 0.2 - 1.2 mg/dL 03/04/2020 12:32 AM [facility] Alkaline Phosphatase 83 40 - 150 Units/L 03/04/2020 12:32 AM [facility] ALT 65(H) 0 - 55 Units/L 03/04/2020 12:32 AM [facility] AST 24 5 - 34 Units/L 03/04/2020 12:32 AM [facility] Anion Gap 18 8 - 18 03/04/2020 12:32 AM [facility] BUN/Creatinine Ratio 13 7 - 23 03/04/2020 12:32 AM [facility] Osmolality Calculated 283 270 - 300 mOsm/kg 03/04/2020 12:32 AM [facility] Albumin/Globulin Ratio 0.7(L) 1.1 - 2.3 03/04/2020 12:32 AM [facility] eGFR >60 >60 mL/min/1.7 3 m2 03/04/2020 12:32 AM [facility] Blood BLOOD SPECIMEN / Unknown Lab Venipuncture / Unknown 03/03/2020 11:45 PM CDT 03/04/2020 12:04 AM CDT Tiffanie Nguyen BURN TABLE OPERATOR-QUALITY PROCESS ENGINEER LAB - CHEMISTRY ORDERABLES [address] [address] [phone] * (ABNORMAL) CBC W AUTO DIFFERENTIAL (03/03/2020 11:45 PM CDT) WBC 16.4(H) 3.5 - 10.5 10? 3 /uL 03/04/2020 12:48 AM [facility] Comment:The WBC count is cor rected by the instrument for nRBC's RBC 3.83(L) 4.30 - 5.70 10? 6 /uL 03/04/2020 12:48 AM [facility] Hemoglobin 11.2(L) 13.5 - 17.5 g/dL 03/04/2020 12:48 AM [facility] Hematocrit 32.1(L) 39.0 - 50.0 % 03/04/2020 12:48 AM [facility] MCV 83.8 81.0 - 97.0 fL 03/04/2020 12:48 AM [facility] MCH 29.2 28.0 - 34.0 pg 03/04/2020 12:48 AM [facility] MCHC 34.9 32.0 - 36.0 g/dL 03/04/2020 12:48 AM [facility] Platelet Count 291 150 - 400 10? 3 /uL 03/04/2020 12:48 AM [facility] RDW-SD 48.1 36.0 - 50.0 fL 03/04/2020 12:48 AM [facility] RDW-CV 16.4(H) 11.2 - 14.8 % 03/04/2020 12:48 AM [facility] MPV 11.3 9.3 - 12.8 fL 03/04/2020 12:48 AM [facility] nRBC Absolute 0.76(H) 0 10? 3 /uL 03/04/2020 12:48 AM [facility] nRBC Auto 4.6(H) 0 /100 WBC 03/04/2020 12:48 AM [facility] Comment:Confirmed by repeat analysis. Neutrophils % 84.0(H) 35.0 - 70.0 % 03/04/2020 12:48 AM [facility] Lymphocytes % 6.7(L) 19.7 - 55.1 % 03/04/2020 12:48 AM [facility] Monocytes % 6.0 3.0 - 15.0 % 03/04/2020 12:48 AM [facility] Eosinophils % 0.1 0.0 - 6.0 % 03/04/2020 12:48 AM CDT [facility] Basophil % 0.2 0.0 - 1.5 % 03/04/2020 12:48 AM T [facility] Neutrophils Absolute 13.8(H) 1.6 - 7.0 10? 3 /uL 03/04/2020 12:48 AM CDT [facility] Lymphocyte Absolute 1.1 0.8 - 2.9 10? 3 /uL 03/04/2020 12:48 AM T [facility] Monocytes Absolute 0.99(H) 0.14 - 0.66 10? 3 /uL 03/04/2020 12:48 AM T [facility] Eosinophils Absolute 0.02 0.00 - 0.45 10? 3 /uL 03/04/2020 12:48 AM T [facility] Basophils Absolute 0.04 0.00 - 0.06 10? 3 /uL 03/04/2020 12:48 AM [facility] Immature Granulocytes % 3.0(H) 0.0 - 1.0 % 03/04/2020 12:48 AM T [facility] Blood BLOOD SPECIMEN / Unknown Lab Venipuncture / Unknown 03/03/2020 11:45 PM CDT 03/04/2020 12:04 AM CDT Tiffanie Nguyen APRN-[facility] LAB - HEMATOLOG Y ORDERABLES [facility] [address] [place] [address], [facility] [phone] * CULTURE BLOOD (03/03/2020 6:08 PM CDT) Culture No growth day 5 [facility] 03/08/2020 11:00 PM CDT [facility] MICROBIOLOGY Blood PERIPHERAL BLOOD / Unknown Lab Venipuncture / Unknown 03/03/2020 6:08 PM CDT 03/03/2020 6:35 PM CDT Rafaela Sood BURN TABLE OPERATOR-[facility] LAB - MICROBIO LOGY ORDERABLES [facility] MICROBI[facility] [address] [place] [address], [facility] [phone] * LEGIONELLA ANTIGEN URINE (03/03/2020 6:04 PM CDT) [facility] Legionella Antigen Urine Negative Negative 03/04/2020 8:59 AM CDT [facility] MICROBIOLOGY Urine URINE / Unknown Collection / Unknown 03/03/2020 6:04 PM CDT 03/03/2020 6:36 PM CDT Narrative [facility] MICROBIOLOGY - 03/04/2020 8:59 AM CDT This assay detects Legionella pneumophila serogroup one (1) antigen. A negative test result does not rule out the possibility of Legionella infection due to other serogroups or species of Legionella. A positive result may indicate a recent or remote infection with serogroup 1. Joce Damian DO LAB - MICROBIOLOGY ORDERABLES Performing Organization Address City/[facility]/ZIP Co de Phone Number [facility] [address] [facility] [place] [address], [facility] [phone] * CULTURE BLOOD (03/03/2020 5:59 PM CDT) [facility] Culture No growth day 5 SPENCER 03/08/2020 11:00 PM CDT [facility] Blood PERIPHERAL BLOOD / Unknown Lab Venipuncture / Unknown 03/03/2020 5:59 PM CDT 03/03/2020 6:35 PM CDT Rafaela Sood BURN TABLE OPERATOR-QUALITY PROCESS ENGINEER LAB - MICROBIO LOGY ORDERABLES Performing Organization Address City/[facility]/ZIP Co de Phone Number [facility] [address] [place] [address], [facility] [phone] * B-TYPE NATRIURETIC PEPTIDE (03/03/2020 5:59 PM CDT) [facility] BNP 25 See Comment pg/mL 03/03/2020 7:08 PM CDT [facility] Comment: * Disclaimer: BNP results may be falsely high by 20% due * * to shift observed secondary to new reagent lot. Lab ?* * working with resident advisor to resolve. ?* * ?* * Please contact [facility] First Press Operator with any questions ??* A decision threshold [...] CDT 03/03/2020 6:35 PM CDT Rafaela Sood APRN-QUALITY PROCESS ENGINEER LAB - CHEMISTR Y ORDERABLES Performing Organization Address [facility] Co de Phone Number [place] [phone], [facility] [phone] * VANCOMYCIN LEVEL TROUGH (03/03/2020 5:59 PM CDT) Vancomycin Trough 17.2 10.0 - 20.0 mcg/mL 03/03/2020 7:09 PM CDT [facility] Blood BLOOD SPECIMEN / Unknown Lab Venipuncture / Unknown 03/03/2020 5:59 PM CDT 03/03/2020 6:35 PM CDT Rafaela Sood APRN-QUALITY PROCESS ENGINEER LAB - CHEMISTR Y ORDERABLES Performing Organization Address [facility] [place] [address], [facility] [phone] * ECHO LIMITED OR FOLLOWUP (03/03/2020 5:49 PM CDT) Anatomical Region Laterality Modality Chest Echo 03/03/2020 5:32 PM CDT Narrative Procedure Note Tiffanie Ruiz MD - 03/06/2020 Rafaela Sood APRN-QUALITY PROCESS ENGINEER ECHOCARDIOGRAP HY RADIANT * VAS BILATERAL VENOUS DUPLEX UE (03/03/2020 3:39 PM CDT) Anatomical Region Laterality Modality Upper Extremity Intravascular Ul trasound 03/03/2020 3:21 PM CDT Narrative Procedure Note Omar Carreon MD - 03/06/2020 Rafaela Sood APRN-QUALITY PROCESS ENGINEER VASCULAR LAB O RDERABLES * VAS BILATERAL VENOUS DUPLEX LE (03/03/2020 3:38 PM CDT) Anatomical Region Laterality Modality Lower Extremity Intravascular Ul trasound 03/03/2020 3:09 PM CDT Narrative Procedure Note Omar Carreon MD - 03/06/2020 Rafaela Sood APRN-QUALITY PROCESS ENGINEER VASCULAR LAB O RDERABLES * CHROMOSOME ANALYSIS BONE MARROW PANEL (03/03/2020 1:45 PM CDT) Chromosome Analysis Bone Marrow See Note Normal 03/14/2020 1:20 PM CDT [facility] ([facility]) Comment: Specimen received Specimen type: ? Bone [...] this sample and will be reported under CloudTalk accession #[id number]. This result has been reviewed and approved by Kraig Martinez MD, PhD, FACMG A portion of this analysis was performed at the following location(s): [address], [facility] [address], [place], [address], Air Crew Officer: Vicki Montesinos, PhD INTERPRETIVE INFORMATION: Chromosome Analysis, Bone Marrow Test developed and characteristics determined by [employer]. See Compliance Statement B: Nitro PDF/ EER Chromosome Analysis Bone Marrow See Note 03/14/2020 1:20 PM CDT [facility] ([facility]) Comment: Access CloudTalk Enhanced Report using either link below: -Direct access: [email or web address] -Enter Username, Password: [email or web address] Username: [email or web address] Password: [email or web address] Performed By: [facility] [address] [place] [address] Air Crew Officer: Toribio Elizondo MD, MS Bone marrow BONE MARROW SPECIMEN / Unknown 03/03/2020 1:45 PM CDT 03/03/2020 1:56 PM CDT Keli Case BURN TABLE OPERATOR-QUALITY PROCESS ENGINEER LAB - PATHOLOGY/C YTOLOGY ORDERABLES [facility]) [address] [place] [address], [facility] * FISH LYMPHOMA (AGGRESSIVE) PANEL (03/03/2020 1:45 PM CDT) FISH Lymphoma (Aggressive) Panel See Note Normal 03/16/2020 9:35 AM [facility] ([facility]) Comment: Specimen Received Specimen Type: ?Bone marrow Reason for Referral: ??Aggressive lymphoma panel Test Performed: ? FISH ALYMPH NORMAL FISH RESULTS 3q27 (BCL6): rearrangement not detected 8q24 (MYC): rearrangement not detected t(14;18)(q32;q21) (IGH;BCL2): rearrangement not detected DIAGNOSTIC IMPRESSION: Fluorescence in situ hybridization (FISH) analysis was performed with the BCL6, MYC, IGH, and BCL2 probes ([employer]). 200 interphase cells were scored for each probe combination. This analysis showed normal results with no evidence of t(14;18)(q32;q21) (IGH/BCL2 translocation) or other rearrangements involving BCL6 or MYC. ISCN: nuc sergei(BCL6,MYC,IGH,BCL2)x2[200] This result has been reviewed and approved by Jin Meza, PhD, [facility] A portion of this analysis was performed at the following location(s): [facility], [address] [place] [address], Air Crew Officer: Jin Meza, PhD INTERPRETIVE INFORMATION: Lymphoma (Aggressive) Panel by FISH This panel is for the identification of double hit lymphoma and triple hit lymphoma, both of which show morphologic features intermediate between diffuse large B-Cell lymphoma and Burkitt Lymphoma. Both are agressive lymphomas and ??are characterized by a poor survival rate. Test developed and characteristics determined by [employer] [facility]. See Compliance Statement A: Nitro PDF/ EER Lymphoma (Aggressive) Pnl FISH See Note 03/16/2020 9:35 AM [facility] ([facility]) Comment: Access CloudTalk Enhanced Report using either link below: -Direct access: [email or web address] -Enter Username, Password: [email or web address] Username: [email or web address] Password: [email or web address] Performed By: [facility] [address] [place] [address] Air Crew Officer: Toribio Elizondo MD, MS Other BONE MARROW SPECIMEN / Unknown Collection / Unknown 03/03/2020 1:45 PM CDT 03/03/2020 1:56 PM CDT Keli Evie BURN TABLE OPERATOR-QUALITY PROCESS ENGINEER LAB - PATHOLOGY/C YTOLOGY ORDERABLES [employer] ([facility]) [address] [place] [address], [facility] * FLOW CYTOMETRY BONE MARROW (03/03/2020 1:45 PM CDT) Case Report Flow Cytometry ?Case: [id number] ? Authorizing Provider: ??Evie, Keli, BURN TABLE OPERATOR-QUALITY PROCESS ENGINEER ?? Collected: ? 03/03/2020 01:45 PM ? Ordering Location: ? [address] ?Received: ?03/03/2020 01:56 PM ? Pathologist: ? Margaret Hooker Mai, DO ? Specimen: ?Bone Marrow ? 03/03/2020 6:41 PM [facility] Final Diagnosis Bone marrow, flow cytometric immunophenotypic analysis: - No evidence of non-Hodgkin lymphoma or high-grade myeloid neoplasm. - See interpretation. 03/03/2020 6:41 PM [facility] Flow Cytometry Interpretation The [...] flow cytometry specimen is reviewed for quality improvement specialist purposes. The bone marrow aspirate specimen shows no evidence of involvement by non-Hodgkin lymphoma or a high-grade myeloid neoplasm. Correlation with clinical findings, the concurrent bone marrow core biopsy ([id number]), and relevant cytogenetic/molecu lar studies is required. VH/MM 03/03/2020 6:41 PM [facility] Flow Cytometry Results Differential Result Comment Flow Cell Count /uL 37,500 Total Viability % 96.0 Lymphocytes % 2 Dim CD45 Region % 1 Monocytes % 3 Granulocytes % 94 03/03/2020 6:41 PM [facility] Reason for test Diffuse large B-cell lymphoma, unspecified body region 03/03/2020 6:41 PM [facility] Client Specimen ID # [id number] 03/03/2020 6:41 PM [facility] Number of markers 10 were performed. A-1 Flow CD3 A-3 Flow CD10 A-5 Flow CD20 A-6 Flow CD23 A-2 Flow CD5 A-4 Flow CD19 A-7 Flow CD34 A-8 Flow CD45 A-9 [place]+CD19+ A-10 Lambda+CD19+ 03/03/2020 6:41 PM [facility] Disclaimer Test performed at [facility], [address] [place] [address], [id number]. *The established laboratory minimum viability is 70%. [...] complexity clinical testing. 03/03/2020 6:41 PM CDT [facility] PATHOLOG[facility] LAB Embedded Images 0 6:41 PM CDT [facility] PATH[facility] LAB Pathology/Cytolo gy BONE MARROW SPECIMEN / Unknown Collection / Unknown 03/03/2020 1:45 PM CDT 03/03/2020 1:56 PM CDT Keli Esi BURN TABLE OPERATOR-QUALITY PROCESS ENGINEER LAB - PATHOLOGY/C YTOLOGY ORDERABLES Performing Organization Address City/State/[facility] Co de Phone Number [facility] LAB [address] [phone] * BONE MARROW BIOPSY (STL) (03/03/2020 1:45 PM CDT) Case Report Bone Marrow Patholog y Report ?Case: [id number] ? Authorizing Provider: ??Evie, Keli, BURN TABLE OPERATOR-QUALITY PROCESS ENGINEER ?? Collected: ? 03/03/2020 01:45 PM ? Ordering Location: ? [facility] ?Received: ?03/03/2020 01:56 PM ? Pathologist: ? Margaret Hooker Mai, DO ? Specimens: ?? A) - Bone Marrow Clot ? B) - Bone Marrow Core ? C) - Bone Marrow Aspirate ? D) - Blood Peripheral ? 03/14/2020 8:35 AM [facility] Final Diagnosis Bone marrow, aspirate, clot section, and core biopsy: - Normocellular marrow with maturing trilineage hematopoiesis. - No morphologic evidence of residual/recurrent non-Hodgkin lymphoma. - See description. Peripheral blood smear: - Normal white blood cell count with absolute neutrophilia. - Normochromic normocytic anemia. - See description. 03/14/2020 8:35 AM [facility] Comment Overall, the bone marrow specimen is normocellular for age with maturing trilineage hematopoiesis and no morphologic evidence of lymphoma or a high-grade myeloid neoplasm. Concurrent bone marrow flow cytometry ([id number]) demonstrates no evidence of non-Hodgkin lymphoma or a high-grade myeloid neoplasm. Correlation with clinical findings and relevant cytogenetic/molecular testing is required. VH/TF 03/14/2020 8:35 AM [facility] Peripheral Smear Description Manual Differential Count (100 cells): 87% neutrophils, 6% lymphocytes, 7% monocytes. 14 nRBCs / 100 WBCs. Leukocyte number: increased. Granulocyte morphology: absolute neutrophilia. Lymphocyte morphology: normal. Erythrocyte number: decreased. Erythrocyte morphology: normochromic normocytic. Anisopoikilocytosis: mild. Polychromasia: mild. Platelet number: normal, with some platelet clumping. Platelet morphology: normal. 03/14/2020 8:35 AM [facility] Bone Marrow Aspirate Differential [...] no ringed sideroblasts seen. 03/14/2020 8:35 AM [facility] Bone Marrow Core Biopsy [...] similar to core biopsy. 03/14/2020 8:35 AM [facility] Flow Cytometry Summary Concurrent flow cytometric analysis ([id number]) Shows no evidence of non-Hodgkin's lymphoma or high-grade myeloid neoplasm. 03/14/2020 8:35 AM [facility] Clinical History The patient is a 49-year-old man who is day 137 status post autologous peripheral blood stem cell transplant. 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 He underwent bone marrow biospy as part of day 100 testing which was delayed until now due to positive COVID results. Concurrent flow cytometry ([id number]) is negative for non-Hodgkin lymphoma or high-grade myeloid neoplasm. 03/14/2020 8:35 AM [facility] Gross Description The requisition [...] of rapidcal immuno. KK 03/14/2020 8:35 AM [facility] Disclaimer The performance characteristics of all immunohistochemical and indirect immunofluorescence stains (if any) cited in this report were determined by the Histopathology Laboratory of [facility]. Some of these tests were developed by [...] the attending (teaching) pathologist. 03/14/2020 8:35 AM [facility] Addendum 1 Properly controlled special stains were performed on the bone marrow core. GMS staining highlights debris and weak blush staining of some erythrocytes but no distinct fungal elements. AFB staining shows no acid-fast organisms. The diagnosis is unchanged. 03/14/2020 8:35 AM [facility] Addendum electronically signed by Margaret Hooker Mai, DO on 03/14/2020 at 8:35 AM Embedded Images 03/14/2020 8:35 AM CDT [facility] Pathology/Cytology PERIPHERAL BLOOD / Unknown [...] CDT 03/03/2020 3:00 PM CDT Keli Case APRN-[facility] LAB - PATHOLOGY/C YTOLOGY ORDERABLES Performing Organization Address City/[facility]/ZIP Co de Phone Number [facility] [address] [place], [place] [address] [phone] * (ABNORMAL) FIBRINOGEN ACTIVITY (03/03/2020 12:47 PM CDT) Fibrinogen Clauss 584(H) 200 - 400 mg/dL 03/03/2020 1:18 PM CDT [facility] Blood BLOOD SPECIMEN / Unknown Lab Venipuncture / Unknown 03/03/2020 12:47 PM CDT 03/03/2020 1:06 PM CDT Rafaela Sood BURN TABLE OPERATOR-[facility] LAB - COAGULAT ION ORDERABLES [facility] [address] [place] [address], [facility] [phone] * (ABNORMAL) ERYTHROCYTE SEDIMENTATION RATE (03/03/2020 12:47 PM CDT) Erythrocyte Sedimentation Rate Westergren 48(H) 0 - 15 MM/HR 03/03/2020 1:16 PM CDT [facility] Blood BLOOD SPECIMEN / Unknown Lab Venipuncture / Unknown 03/03/2020 12:47 PM CDT 03/03/2020 1:06 PM CDT Rafaelaluisa Sood JOSE DAVID-QUALITY PROCESS ENGINEER LAB - HEMATOLO GY ORDERABLES Performing Organization Address [facility]/ZIP Co de Phone Number [address] [address], [facility] [phone] * (ABNORMAL) C-REACTIVE PROTEIN (03/03/2020 12:47 PM CDT) Pathologist [facility] C-Reactive Protein 9.1(H) <=0.5 mg/dL 03/03/2020 1:28 PM CDT [facility] Blood BLOOD SPECIMEN / Unknown Lab Venipuncture / Unknown 03/03/2020 12:47 PM CDT 03/03/2020 1:06 PM CDT Rafaela Blepkbrayan BURN TABLE OPERATOR-QUALITY PROCESS ENGINEER LAB - CHEMISTR Y ORDERABLES Performing Organization Address [facility]/ZIP Co de Phone Number [address] [address], [facility] [phone] * (ABNORMAL) LDH BLOOD (03/03/2020 12:47 PM CDT) [facility] LDH Total 468(H) 125 - 243 Units/L 03/03/2020 1:26 PM CDT [facility] Blood BLOOD SPECIMEN / Unknown Lab Venipuncture / Unknown 03/03/2020 12:47 PM CDT 03/03/2020 1:06 PM CDT Rafaelaluisa oSod BURN TABLE OPERATORQUALITY PROCESS ENGINEER LAB - CHEMISTR Y ORDERABLES Performing Organization Address [facility]/ZIP Co de Phone Number [address] [address], [facility] [phone] * SARS-COV-2 (COVID-19) ANTIBODY IGG (03/03/2020 12:47 PM CDT) Pathologist [facility] CoV2 IGG Negative 03/03/2020 1:54 PM CDT [facility] Blood BLOOD SPECIMEN / Unknown Lab Venipuncture / Unknown 03/03/2020 12:47 PM CDT 03/03/2020 1:06 PM CDT Narrative [facility] - 03/03/2020 1:54 PM CDT This serologic based test was developed by [employer] and its performance characteristics determined by [facility]. This test has not [...] due to past or present infection with [id number] coronavirus strains. Rigorous scientific studies have not been completed to determine if detectable IgG to SARS-CoV-2 confers protective immunity. Rafaela Sood APRN-QUALITY PROCESS ENGINEER LAB - CHEMISTR Y ORDERABLES [address] [address], [facility] [phone] * (ABNORMAL) D-DIMER (03/03/2020 12:47 PM CDT) D-Dimer Quantitative 1.20(H) <=0.50 mcg/mL FEU 03/03/2020 1:20 PM CDT [facility] Comment: In the absence of clinical [...] CDT 03/03/2020 1:06 PM CDT Rafaela Sood [facility] - COAGULAT ION ORDERABLES Performing Organization Address [facility] Co de Phone Number [place] [phone] [phone] * TROPONIN I (03/03/2020 12:47 PM CDT) Troponin I <0.010 <0.032 ng/mL 03/03/2020 1:36 PM CDT [facility] Blood BLOOD SPECIMEN / Unknown Lab Venipuncture / Unknown 03/03/2020 12:47 PM CDT 03/03/2020 1:06 PM CDT Rafaela Sood [facility] LAB - CHEMISTR Y ORDERABLES [address] [address], [place] [phone] * (ABNORMAL) FERRITIN (03/03/2020 12:47 PM CDT) Ferritin 743(H) 22 - 275 ng/mL 03/03/2020 1:51 PM CDT [facility] Blood BLOOD SPECIMEN / Unknown Lab Venipuncture / Unknown 03/03/2020 12:47 PM CDT 03/03/2020 1:06 PM CDT Rafaelaluisa Sood [facility] LAB - CHEMISTR Y ORDERABLES Performing Organization Address [facility]/ZIP Co de Phone Number [address] [address], [facility] [phone] * (ABNORMAL) VANCOMYCIN LEVEL TROUGH (03/03/2020 12:47 PM CDT) Vancomycin Trough 26.4(HH) 10.0 - 20.0 mcg/mL 03/03/2020 2:09 PM CDT [facility] Blood BLOOD SPECIMEN / Unknown Lab Venipuncture / Unknown 03/03/2020 12:47 PM CDT 03/03/2020 1:06 PM CDT Keli Case BURN TABLE OPERATORCENTRAL HOSPITAL LAB - CHEMISTRY O RDERABLES Performing Organization Address [facility] Co de Phone Number [address], [facility] [phone] * PHOSPHORUS BLOOD (03/03/2020 12:14 AM CDT) Phosphorus 2.4 2.3 - 4.7 mg/dL 03/03/2020 12:55 AM CDT [facility] Blood BLOOD SPECIMEN / Unknown Lab Venipuncture / Unknown 03/03/2020 12:14 AM CDT 03/03/2020 12:27 AM CDT Tiffanie Nguyen BURN TABLE OPERATORCENTRAL HOSPITAL LAB - CHEMISTRY ORDERABLES Performing Organization Address [facility]/State/ZIP Co de Phone Number [address] [address], [facility] [phone] * MAGNESIUM BLOOD (03/03/2020 12:14 AM CDT) Magnesium 1.7 1.6 - 2.6 mg/dL 03/03/2020 12:55 AM CDT [facility] Blood BLOOD SPECIMEN / Unknown Lab Venipuncture / Unknown 03/03/2020 12:14 AM CDT 03/03/2020 12:27 AM CDT Tiffanie Nguyen BURN TABLE OPERATOR-QUALITY PROCESS ENGINEER LAB - CHEMISTRY ORDERABLES [facility] [address] [place] [address], [facility] [phone] * (ABNORMAL) COMPREHENSIVE METABOLIC PANEL (03/03/2020 12:14 AM CDT) BUN 17 7 - 26 mg/dL 03/03/2020 1:15 AM [facility] Creatinine 1.0 0.6 - 1.2 mg/dL 03/03/2020 1:15 AM [facility] Sodium 134(L) 136 - 145 mmol/L 03/03/2020 1:15 AM [facility] Potassium 3.6 3.5 - 4.5 mmol/L 03/03/2020 1:15 AM [facility] Chloride 103 98 - 107 mmol/L 03/03/2020 1:15 AM [facility] CO2 18(L) 22 - 29 mmol/L 03/03/2020 1:15 AM [facility] Glucose 100 70 - 115 mg/dL 03/03/2020 1:15 AM [facility] Calcium 7.7(L) 8.4 - 10.2 mg/dL 03/03/2020 1:15 AM [facility] Protein Total 4.9(L) 6.0 - 8.3 g/dL 03/03/2020 1:15 AM [facility] Albumin 2.2(L) 3.4 - 5.0 g/dL 03/03/2020 1:15 AM [facility] Bilirubin Total 0.3 0.2 - 1.2 mg/dL 03/03/2020 1:15 AM [facility] Alkaline Phosphatase 82 40 - 150 Units/L 03/03/2020 1:15 AM [facility] ALT 90(H) 0 - 55 Units/L 03/03/2020 1:15 AM [facility] AST 31 5 - 34 Units/L 03/03/2020 1:15 AM [facility] Anion Gap 17 8 - 18 03/03/2020 1:15 AM [facility] BUN/Creatinine Ratio 17 7 - 23 03/03/2020 1:15 AM [facility] Osmolality Calculated 280 270 - 300 mOsm/kg 03/03/2020 1:15 AM [facility] Albumin/Globulin Ratio 0.8(L) 1.1 - 2.3 03/03/2020 1:15 AM [facility] eGFR >60 >60 mL/min/1.7 3 m2 03/03/2020 1:15 AM [facility] Blood BLOOD SPECIMEN / Unknown Lab Venipuncture / Unknown 03/03/2020 12:14 AM CDT 03/03/2020 12:27 AM CDT Tiffanie Nguyen BURN TABLE OPERATOR-QUALITY PROCESS ENGINEER LAB - CHEMISTRY ORDERABLES [address] [address] [phone] * (ABNORMAL) CBC W AUTO DIFFERENTIAL (03/03/2020 12:14 AM CDT) WBC 15.8(H) 3.5 - 10.5 10? 3 /uL 03/03/2020 12:32 AM [facility] Comment:The WBC count is cor rected by the instrument for nRBC's RBC 3.76(L) 4.30 - 5.70 10? 6 /uL 03/03/2020 12:32 AM [facility] Hemoglobin 11.0(L) 13.5 - 17.5 g/dL 03/03/2020 12:32 AM [facility] Hematocrit 31.8(L) 39.0 - 50.0 % 03/03/2020 12:32 AM [facility] MCV 84.6 81.0 - 97.0 fL 03/03/2020 12:32 AM [facility] MCH 29.3 28.0 - 34.0 pg 03/03/2020 12:32 AM [facility] MCHC 34.6 32.0 - 36.0 g/dL 03/03/2020 12:32 AM [facility] Platelet Count 338 150 - 400 10? 3 /uL 03/03/2020 12:32 AM [facility] RDW-SD 49.7 36.0 - 50.0 fL 03/03/2020 12:32 AM [facility] RDW-CV 16.4(H) 11.2 - 14.8 % 03/03/2020 12:32 AM [facility] MPV 11.2 9.3 - 12.8 fL 03/03/2020 12:32 AM [facility] nRBC Absolute 1.72(H) 0 10? 3 /uL 03/03/2020 12:32 AM [facility] nRBC Auto 10.9(H) 0 /100 WBC 03/03/2020 12:32 AM [facility] Neutrophils % 84.7(H) 35.0 - 70.0 % 03/03/2020 12:32 AM [facility] Lymphocytes % 3.2(L) 19.7 - 55.1 % 03/03/2020 12:32 AM [facility] Monocytes % 8.4 3.0 - 15.0 % 03/03/2020 12:32 AM [facility] Eosinophils % 0.1 0.0 - 6.0 % 03/03/2020 12:32 AM [facility] Basophil % 0.3 0.0 - 1.5 % 03/03/2020 12:32 AM [facility] Neutrophils Absolute 13.4(H) 1.6 - 7.0 10? 3 /uL 03/03/2020 12:32 AM [facility] Lymphocyte Absolute 0.5(L) 0.8 - 2.9 10? 3 /uL 03/03/2020 12:32 AM [facility] Monocytes Absolute 1.33(H) 0.14 - 0.66 10? 3 /uL 03/03/2020 12:32 AM [facility] Eosinophils Absolute 0.01 0.00 - 0.45 10? 3 /uL 03/03/2020 12:32 AM [facility] Basophils Absolute 0.04 0.00 - 0.06 10? 3 /uL 03/03/2020 12:32 AM [facility] Immature Granulocytes % 3.3(H) 0.0 - 1.0 % 03/03/2020 12:32 AM CDT [facility] Blood BLOOD SPECIMEN / Unknown Lab Venipuncture / Unknown 03/03/2020 12:14 AM CDT 03/03/2020 12:27 AM CDT Tiffanie Seymour Patrick BURN TABLE OPERATOR-QUALITY PROCESS ENGINEER LAB - HEMATOLOG Y ORDERABLES Performing Organization Address [facility]/ZIP Co de Phone Number [address] [address], [place] [phone] * PNEUMOCYSTIS JIROVECI QUANT PCR (03/03/2020 12:14 AM CDT) See Scanned Document SEE SCANNED REPORT 03/07/2020 11:47 AM CDT [facility] REF LAB NON INTERF Microbiology BLOOD SPECIMEN / Unknown Collection / Unknown 03/03/2020 12:14 AM CDT 03/03/2020 12:27 AM CDT Dana Lala APRN-MERCHANDISE HANDLER LAB - MICROB IOLOGY ORDERABLES Performing Organization Address [facility] Co de Phone Number [facility] REF LAB NON INTERF [address] [place] [address] * [id number] FUNGITELL BAL/BLOOD (03/03/2020 12:14 AM CDT) See Scanned Document See Scanned Report 03/15/2020 9:01 PM CDT [facility] REF LAB NON INTERF Microbiology BLOOD SPECIMEN / Unknown Collection / Unknown 03/03/2020 12:14 AM CDT 03/03/2020 12:27 AM CDT Dana Jonatan Dai BURN TABLE OPERATOR-MERCHANDISE HANDLER LAB - MICROB IOLOGY ORDERABLES Performing Organization Address [facility]/ZIP Co de Phone Number [facility] REF LAB NON INTERF [address] [place] [address] * CT CHEST W CONTRAST (03/02/2020 10:04 [...] vena cava. Dictated by Jose Gonzalez MD (radiology technician). I, Dr. YARA MADRIGAL have personally reviewed [...] the superior vena cava. Dictated by Jose Goznalez MD (radiology technician). I, Dr. YARA MADRIGAL have personally reviewed and interpreted this examination/study. This report was electronically signed by YARA MADRIGAL on 03/03/2020 10:09 AM . Dana Lala BURN TABLE OPERATOR-MERCHANDISE HANDLER CT ORDERABLE S * CULTURE BLOOD (03/02/2020 6:42 PM CDT) Culture No growth day 5 SPENCER 03/07/2020 11:30 PM CDT [facility] MICROBIOLOGY Blood PERIPHERAL BLOOD / Unknown Lab Venipuncture / Unknown 03/02/2020 6:42 PM CDT 03/02/2020 6:54 PM CDT Keli Case [facility] LAB - MICROBIOLOG Y ORDERABLES [facility] MICROBIOLOGY [address] [place] [address], [facility] [phone] * CULTURE BLOOD (03/02/2020 6:29 PM CDT) Culture No growth day 5 SPENCER 03/07/2020 11:30 PM CDT [facility] MICROBIOLOGY Blood PERIPHERAL BLOOD / Unknown Lab Venipuncture / Unknown 03/02/2020 6:29 PM CDT 03/02/2020 6:53 PM CDT Keli Case [facility] LAB - MICROBIOLOG Y ORDERABLES Performing Organization Address City/[facility]/ZIP Co de Phone Number [facility] MICROBIOLOGY [address] [place] [address], [facility] [phone] * PHOSPHORUS BLOOD (03/01/2020 11:52 PM CDT) Phosphorus 3.4 2.3 - 4.7 mg/dL 03/02/2020 12:53 AM CDT [facility] Blood BLOOD SPECIMEN / Unknown Lab Venipuncture / Unknown 03/01/2020 11:52 PM CDT 03/02/2020 12:33 AM CDT Tiffanie Nguyen [facility] LAB - CHEMISTRY ORDERABLES [address] [address], [facility] [phone] * MAGNESIUM BLOOD (03/01/2020 11:52 PM CDT) Magnesium 1.9 1.6 - 2.6 mg/dL 03/02/2020 12:53 AM CDT [facility] Blood BLOOD SPECIMEN / Unknown Lab Venipuncture / Unknown 03/01/2020 11:52 PM CDT 03/02/2020 12:33 AM CDT Tiffanie Nguyen BURN TABLE OPERATOR-QUALITY PROCESS ENGINEER LAB - CHEMISTRY ORDERABLES [address] [address], [facility] [phone] * (ABNORMAL) COMPREHENSIVE METABOLIC PANEL (03/01/2020 11:52 PM CDT) BUN 21 7 - 26 mg/dL 03/02/2020 12:53 AM [facility] Creatinine 0.8 0.6 - 1.2 mg/dL 03/02/2020 12:53 AM [facility] Sodium 142 136 - 145 mmol/L 03/02/2020 12:53 AM [facility] Potassium 3.7 3.5 - 4.5 mmol/L 03/02/2020 12:53 AM [facility] Chloride 107 98 - 107 mmol/L 03/02/2020 12:53 AM [facility] CO2 18(L) 22 - 29 mmol/L 03/02/2020 12:53 AM [facility] Glucose 122(H) 70 - 115 mg/dL 03/02/2020 12:53 AM [facility] Calcium 8.2(L) 8.4 - 10.2 mg/dL 03/02/2020 12:53 AM [facility] Protein Total 5.3(L) 6.0 - 8.3 g/dL 03/02/2020 12:53 AM [facility] Albumin 2.4(L) 3.4 - 5.0 g/dL 03/02/2020 12:53 AM [facility] Bilirubin Total 0.2 0.2 - 1.2 mg/dL 03/02/2020 12:53 AM [facility] Alkaline Phosphatase 86 40 - 150 Units/L 03/02/2020 12:53 AM [facility] ALT 94(H) 0 - 55 Units/L 03/02/2020 12:53 AM [facility] AST 29 5 - 34 Units/L 03/02/2020 12:53 AM [facility] Anion Gap 21(H) 8 - 18 03/02/2020 12:53 AM [facility] BUN/Creatinine Ratio 26(H) 7 - 23 03/02/2020 12:53 AM [facility] Osmolality Calculated 298 270 - 300 mOsm/kg 03/02/2020 12:53 AM [facility] Albumin/Globulin Ratio 0.8(L) 1.1 - 2.3 03/02/2020 12:53 AM [facility] eGFR >60 >60 mL/min/1.7 3 m2 03/02/2020 12:53 AM [facility] Blood BLOOD SPECIMEN / Unknown Lab Venipuncture / Unknown 03/01/2020 11:52 PM CDT 03/02/2020 12:33 AM CDT Lara Patrick BURN TABLE OPERATOR-QUALITY PROCESS ENGINEER LAB - CHEMISTRY ORDERABLES Performing Organization Address [facility] Co de Phone Number [address] [address] [phone] * (ABNORMAL) CBC W AUTO DIFFERENTIAL (03/01/2020 11:52 PM CDT) WBC 20.6(H) 3.5 - 10.5 10? 3 /uL 03/02/2020 12:37 AM [facility] Comment:The WBC count is cor rected by the instrument for nRBC's RBC 3.77(L) 4.30 - 5.70 10? 6 /uL 03/02/2020 12:37 AM [facility] Hemoglobin 11.0(L) 13.5 - 17.5 g/dL 03/02/2020 12:37 AM [facility] Hematocrit 31.8(L) 39.0 - 50.0 % 03/02/2020 12:37 AM [facility] MCV 84.4 81.0 - 97.0 fL 03/02/2020 12:37 AM [facility] MCH 29.2 28.0 - 34.0 pg 03/02/2020 12:37 AM [facility] MCHC 34.6 32.0 - 36.0 g/dL 03/02/2020 12:37 AM [facility] Platelet Count 416(H) 150 - 400 10? 3 /uL 03/02/2020 12:37 AM [facility] RDW-SD 50.1(H) 36.0 - 50.0 fL 03/02/2020 12:37 AM [facility] RDW-CV 16.5(H) 11.2 - 14.8 % 03/02/2020 12:37 AM [facility] MPV 11.1 9.3 - 12.8 fL 03/02/2020 12:37 AM [facility] nRBC Absolute 0.89(H) 0 10? 3 /uL 03/02/2020 12:37 AM [facility] nRBC Auto 4.3(H) 0 /100 WBC 03/02/2020 12:37 AM [facility] Neutrophils % 88.1(H) 35.0 - 70.0 % 03/02/2020 12:37 AM [facility] Lymphocytes % 3.8(L) 19.7 - 55.1 % 03/02/2020 12:37 AM [facility] Monocytes % 5.6 3.0 - 15.0 % 03/02/2020 12:37 AM [facility] Eosinophils % 0.0 0.0 - 6.0 % 03/02/2020 12:37 AM [facility] Basophil % 0.2 0.0 - 1.5 % 03/02/2020 12:37 AM [facility] Neutrophils Absolute 18.1(H) 1.6 - 7.0 10? 3 /uL 03/02/2020 12:37 AM [facility] Lymphocyte Absolute 0.8 0.8 - 2.9 10? 3 /uL 03/02/2020 12:37 AM [facility] Monocytes Absolute 1.16(H) 0.14 - 0.66 10? 3 /uL 03/02/2020 12:37 AM [facility] Eosinophils Absolute 0.00 0.00 - 0.45 10? 3 /uL 03/02/2020 12:37 AM [facility] Basophils Absolute 0.04 0.00 - 0.06 10? 3 /uL 03/02/2020 12:37 AM CDT [facility] Immature Granulocytes % 2.3(H) 0.0 - 1.0 % 03/02/2020 12:37 AM CDT [facility] Blood BLOOD SPECIMEN / Unknown Lab Venipuncture / Unknown 03/01/2020 11:52 PM CDT 03/02/2020 12:33 AM CDT Tiffanie Nguyen BURN TABLE OPERATOR-QUALITY PROCESS ENGINEER LAB - HEMATOLOG Y ORDERABLES Performing Organization Address [facility]/State/ZIP Co de Phone Number [address] [address], [facility] [phone] * FLOW CYTOMETRY BODY FLUID (03/01/2020 4:18 PM CDT) Case Report Flow Cytometry ?Case: [id number] ? Authorizing Provider: ??Dana Lala, ? Collected: ? BURN TABLE OPERATOR-MERCHANDISE HANDLER ? Ordering Location: ? [address] ?Received: ?03/01/2020 11:07 AM ? Pathologist: ? Margaret Hooker Mai, DO ? Specimen: ?CSF Tube 3 ? 03/01/2020 4:18 PM [facility] Final Diagnosis Cerebrospinal fluid, flow cytometric immunophenotypic analysis: - Insufficient hematopoietic cells for analysis. - See interpretation. 03/01/2020 4:18 PM [facility] Flow Cytometry Interpretation Preliminary characterization of the cerebrospinal fluid specimen demonstrates too few hematopoietic cells for flow cytometric analysis. A cytospin prepared from the flow cytometry specimen is reviewed for quality improvement specialist purposes. Flow cytometry is not performed. 03/01/2020 4:18 PM [facility] Flow Cytometry Results Too few hematopoetic cells for flow cytometric analysis. 03/01/2020 4:18 PM [facility] Client Specimen ID # [id number] 03/01/2020 4:18 PM [facility] Reason for test Fever, unspecified fever cause Diffuse large B-cell lymphoma, unspecified body region 03/01/2020 4:18 PM [facility] Disclaimer Test performed at [facility], [address] [place] [address], [id number]. *The established laboratory minimum viability is 70%. [...] complexity clinical testing. 03/01/2020 4:18 PM CDT [facility] PATHOLOGY LAB Embedded Images 0 4:18 PM CDT [facility] PATHOLOGY LAB Fluid CEREBROSPINAL FLUID SPECIMEN / Unknown 03/01/2020 11:07 AM CDT Dana Jonatan Dai BURN TABLE OPERATOR-MERCHANDISE HANDLER LAB - PATHOL OGY/CYTOLOGY ORDERABLES Performing Organization Address [facility]/ZIP Co de Phone Number [facility] PATHOLOGY LAB [address] [place] [address], [facility] [phone] * HERPES SIMPLEX 1+2 PCR CSF (03/01/2020 12:41 PM CDT) Herpes Simplex Virus 1 PCR CSF Not detected Not detected 03/01/2020 7:20 PM CDT [facility] MICROBIOLOGY Herpes Simplex Virus 2 PCR CSF Not detected Not detected 03/01/2020 7:20 PM CDT [facility] MICROBIOLOGY Microbiology CEREBROSPINAL FLUID SPECIMEN / Unknown Collection / Unknown 03/01/2020 12:41 PM CDT 03/01/2020 12:41 PM CDT Dana Jonatan Dai BURN TABLE OPERATOR-MERCHANDISE HANDLER LAB - MICROB IOLOGY ORDERABLES Performing Organization Address [facility] Co de Phone Number [facility] MICROBIOLOGY [address] [place] [address], [facility] [phone] * CRYPTOCOCCUS ANTIGEN CSF (03/01/2020 11:16 AM CDT) Pathologist [facility] Cryptococcus Antigen CSF Negative Negative 03/01/2020 4:46 PM CDT [facility] MICROBIOLOGY Cerebral spinal fluid CEREBROSPINAL FLUID SPECIMEN / Unknown Collection / Unknown 03/01/2020 11:16 AM CDT 03/01/2020 11:16 AM CDT Marek Vasquez MD LAB - MICROBIOLOGY O RDERABLES Performing Organization Address City/[facility]/ZIP Co de Phone Number [facility] MICROBIOLOGY [address] [place] [address], [facility] [phone] * PROTEIN CSF (03/01/2020 10:48 AM CDT) Protein CSF 20 15 - 45 mg/dL 03/01/2020 11:32 AM CDT [facility] Cerebral spinal fluid CEREBROSPINAL FLUID SPECIMEN / Unknown Collection / Unknown 03/01/2020 10:48 AM CDT 03/01/2020 11:01 AM CDT Dana Lala BURN TABLE OPERATOR-MERCHANDISE HANDLER LAB - BODY F LUID ORDERABLES Performing Organization Address [facility]/ZIP Co de Phone Number [place] [address], [facility] [phone] * (ABNORMAL) GLUCOSE CSF (03/01/2020 10:48 AM CDT) Glucose CSF 81(H) 40 - 70 mg/dL 03/01/2020 11:32 AM CDT [facility] Cerebral spinal fluid CEREBROSPINAL FLUID SPECIMEN / Unknown Collection / Unknown 03/01/2020 10:48 AM CDT 03/01/2020 11:01 AM CDT Dana Lala BURN TABLE OPERATOR-MERCHANDISE HANDLER LAB - BODY F LUID ORDERABLES Performing Organization Address [facility] Co de Phone Number [place] [address], [facility] [phone] * FL LUMBAR PUNCTURE (03/01/2020 10:44 AM CDT) Anatomical Region Laterality Modality Spine Radiographic Chayito ging 03/01/2020 10:4 6 AM CDT Impressions 03/01/2020 4:46 PM CDT IMPRESSION: 1. Successful lumbar puncture under fluoroscopic guidance at L3-L4. Dictated by Camacho Samayoa MD (Warp Splitter) Trey Harris MD, was personally present in [...] at L3-L4. Dictated by Camacho Samayoa MD (Warp Splitter) Trey Harris MD, was personally present in the procedure room for the alfonso portions of the procedure and was immediately available [facility] during the entire procedure. Dr. TREY Harris have personally reviewed and interpreted this examination/study. This report was electronically signed by TREY GROSSMAN on 03/01/2020 4:46 PM . Rafaela Sood BURN TABLE OPERATOR-QUALITY PROCESS ENGINEER FLUOROSCOPY OR DERABLES * DIFFERENTIAL MANUAL FLUID (03/01/2020 10:39 AM CDT) Lymphocytes % Fluid 46 % 03/01/2020 11:46 AM CDT [facility] Monocytes % Fluid 50 % 03/01/2020 11:46 AM CDT [facility] Macrophages % Fluid 4 % 03/01/2020 11:46 AM CDT [facility] Cerebral spinal fluid CEREBROSPINAL FLUID SPECIMEN / Unknown Collection / Unknown 03/01/2020 10:39 AM CDT 03/01/2020 10:57 AM CDT Narrative [facility] - 03/01/2020 11:46 AM CDT Only 28 cells counted for diff. Dana Lala BURN TABLE OPERATOR-MERCHANDISE HANDLER LAB - BODY F LUID ORDERABLES [address] [address], [facility] [phone] * OLIGOCLONAL BANDS CSF+BLOOD PANEL (03/01/2020 10:39 AM CDT) See Scanned Document See scanned report 03/03/2020 6:02 AM CDT [employer] ([facility]) Oligoclonal Bands 03/03/2020 6:02 AM CDT [facility]) Other MISCELLANEOUS SAMPLES / Unknown Collection / Unknown 03/01/2020 10:39 AM CDT 03/01/2020 3:18 PM CDT Dana [facility]ala [facility] LAB - BODY F LUID ORDERABLES Performing Organization Address City/[facility]/ZIP Co de Phone Number [facility]) [address] * CELL COUNT W DIFFERENTIAL CSF (03/01/2020 10:39 AM CDT) Color Fluid Colorless Colorless, Straw 03/01/2020 11:19 AM CDT [facility] Clarity Fluid Clear Clear 03/01/2020 11:19 AM CDT [facility] Volume Fluid 3.0 mL 03/01/2020 11:19 AM CDT [facility] WBC Calculation Fluid 1 0 - 5 /uL 03/01/2020 11:19 AM CDT [facility] RBC Calculation 1 /uL 0 11:19 AM CDT [facility] Xanthochromia Fluid Negative Negative 03/01/2020 11:19 AM CDT [facility] Differential Manual Differential to follow. 03/01/2020 11:19 AM CDT [facility] Cerebral spinal fluid CEREBROSPINAL FLUID SPECIMEN / Unknown Collection / Unknown 03/01/2020 10:39 AM CDT 03/01/2020 10:57 AM CDT Narrative [facility] - 03/01/2020 11:19 AM CDT No reference ranges established for body fluid cell counts. The reference ranges provided are derived from published literature. The test results must be integrated into the clinical context for interpretation. Dana Lala BURN TABLE OPERATORMERCHANDISE HANDLER LAB - BODY F LUID ORDERABLES Performing Organization Address City/[facility]/ZIP Co de Phone Number [address] [address] [phone] * PHOSPHORUS BLOOD (02/29/2020 11:34 PM CDT) Phosphorus 3.2 2.3 - 4.7 mg/dL 03/01/2020 12:01 AM [facility] Blood BLOOD SPECIMEN / Unknown Lab Venipuncture / Unknown 02/29/2020 11:34 PM CDT 02/29/2020 11:41 PM CDT Tiffanie Nguyen BURN TABLE OPERATOR-QUALITY PROCESS ENGINEER LAB - CHEMISTRY ORDERABLES [address] [phone] * MAGNESIUM BLOOD (02/29/2020 11:34 PM CDT) Pathologist [facility] Magnesium 1.9 1.6 - 2.6 mg/dL 03/01/2020 12:01 AM [facility] Blood BLOOD SPECIMEN / Unknown Lab Venipuncture / Unknown 02/29/2020 11:34 PM CDT 02/29/2020 11:41 PM CDT Tiffanie Alvess BURN TABLE OPERATOR-QUALITY PROCESS ENGINEER LAB - CHEMISTRY ORDERABLES [place] [address], [facility] [phone] * (ABNORMAL) COMPREHENSIVE METABOLIC PANEL (02/29/2020 11:34 PM CDT) Pathologist [facility] BUN 21 7 - 26 mg/dL 03/01/2020 12:01 AM [facility] Creatinine 1.0 0.6 - 1.2 mg/dL 03/01/2020 12:01 AM [facility] Sodium 142 136 - 145 mmol/L 03/01/2020 12:01 AM [facility] Potassium 4.3 3.5 - 4.5 mmol/L 03/01/2020 12:01 AM [facility] Chloride 109(H) 98 - 107 mmol/L 03/01/2020 12:01 AM [facility] CO2 21(L) 22 - 29 mmol/L 03/01/2020 12:01 AM [facility] Glucose 125(H) 70 - 115 mg/dL 03/01/2020 12:01 AM [facility] Calcium 8.4 8.4 - 10.2 mg/dL 03/01/2020 12:01 AM [facility] Protein Total 5.5(L) 6.0 - 8.3 g/dL 03/01/2020 12:01 AM [facility] Albumin 2.5(L) 3.4 - 5.0 g/dL 03/01/2020 12:01 AM [facility] Bilirubin Total 0.2 0.2 - 1.2 mg/dL 03/01/2020 12:01 AM [facility] Alkaline Phosphatase 87 40 - 150 Units/L 03/01/2020 12:01 AM [facility] ALT 95(H) 0 - 55 Units/L 03/01/2020 12:01 AM [facility] AST 59(H) 5 - 34 Units/L 03/01/2020 12:01 AM [facility] Anion Gap 16 8 - 18 03/01/2020 12:01 AM [facility] BUN/Creatinine Ratio 21 7 - 23 03/01/2020 12:01 AM [facility] Osmolality Calculated 298 270 - 300 mOsm/kg 03/01/2020 12:01 AM [facility] Albumin/Globulin Ratio 0.8(L) 1.1 - 2.3 03/01/2020 12:01 AM [facility] eGFR >60 >60 mL/min/1.7 3 m2 03/01/2020 12:01 AM [facility] Blood BLOOD SPECIMEN / Unknown Lab Venipuncture / Unknown 02/29/2020 11:34 PM CDT 02/29/2020 11:41 PM CDT Tiffanie Nguyen BURN TABLE OPERATOR-QUALITY PROCESS ENGINEER LAB - CHEMISTRY ORDERABLES [address] [address] [phone] * (ABNORMAL) CBC W AUTO DIFFERENTIAL (02/29/2020 11:34 PM CDT) WBC 23.4(H) 3.5 - 10.5 10? 3 /uL 02/29/2020 11:55 PM [facility] RBC 3.64(L) 4.30 - 5.70 10? 6 /uL 02/29/2020 11:55 PM [facility] Hemoglobin 10.8(L) 13.5 - 17.5 g/dL 02/29/2020 11:55 PM [facility] Hematocrit 30.8(L) 39.0 - 50.0 % 02/29/2020 11:55 PM [facility] MCV 84.6 81.0 - 97.0 fL 02/29/2020 11:55 PM [facility] MCH 29.7 28.0 - 34.0 pg 02/29/2020 11:55 PM [facility] MCHC 35.1 32.0 - 36.0 g/dL 02/29/2020 11:55 PM [facility] Platelet Count 448(H) 150 - 400 10? 3 /uL 02/29/2020 11:55 PM [facility] RDW-SD 50.8(H) 36.0 - 50.0 fL 02/29/2020 11:55 PM [facility] RDW-CV 16.6(H) 11.2 - 14.8 % 02/29/2020 11:55 PM [facility] MPV 10.8 9.3 - 12.8 fL 02/29/2020 11:55 PM [facility] nRBC Absolute 0.18(H) 0 10? 3 /uL 02/29/2020 11:55 PM [facility] nRBC Auto 0.8(H) 0 /100 WBC 02/29/2020 11:55 PM [facility] Comment:Confirmed by repeat analysis. Neutrophils % 88.6(H) 35.0 - 70.0 % 02/29/2020 11:55 PM [facility] Lymphocytes % 3.9(L) 19.7 - 55.1 % 02/29/2020 11:55 PM [facility] Monocytes % 5.4 3.0 - 15.0 % 02/29/2020 11:55 PM [facility] Eosinophils % 0.0 0.0 - 6.0 % 02/29/2020 11:55 PM CDT [facility] Basophil % 0.2 0.0 - 1.5 % 02/29/2020 11:55 PM CDT [facility] Neutrophils Absolute 20.7(H) 1.6 - 7.0 10? 3 /uL 02/29/2020 11:55 PM CDT [facility] Lymphocyte Absolute 0.9 0.8 - 2.9 10? 3 /uL 02/29/2020 11:55 PM CDT [facility] Monocytes Absolute 1.27(H) 0.14 - 0.66 10? 3 /uL 02/29/2020 11:55 PM CDT [facility] Eosinophils Absolute 0.00 0.00 - 0.45 10? 3 /uL 02/29/2020 11:55 PM CDT [facility] Basophils Absolute 0.04 0.00 - 0.06 10? 3 /uL 02/29/2020 11:55 PM CDT [facility] Immature Granulocytes % 1.9(H) 0.0 - 1.0 % 02/29/2020 11:55 PM CDT [facility] Blood BLOOD SPECIMEN / Unknown Lab Venipuncture / Unknown 02/29/2020 11:34 PM CDT 02/29/2020 11:41 PM CDT Tiffanie Nguyen BURN TABLE OPERATOR-QUALITY PROCESS ENGINEER LAB - HEMATOLOG Y ORDERABLES [address] [address], [place] [phone] * VANCOMYCIN LEVEL TROUGH (02/29/2020 7:05 PM CDT) Vancomycin Trough 18.3 10.0 - 20.0 mcg/mL 02/29/2020 7:44 PM CDT [facility] Blood BLOOD SPECIMEN / Unknown Lab Venipuncture / Unknown 02/29/2020 7:05 PM CDT 02/29/2020 7:13 PM CDT Rafaela Sood BURN TABLE OPERATOR-QUALITY PROCESS ENGINEER LAB - CHEMISTR Y ORDERABLES [address] [address] [phone] * PHOSPHORUS BLOOD (02/29/2020 12:12 AM CDT) Phosphorus 3.2 2.3 - 4.7 mg/dL 02/29/2020 12:53 AM CDT [facility] Blood BLOOD SPECIMEN / Unknown Lab Venipuncture / Unknown 02/29/2020 12:12 AM CDT 02/29/2020 12:22 AM CDT Lara Patrick [facility] LAB - CHEMISTRY ORDERABLES [address] [address] [phone] * MAGNESIUM BLOOD (02/29/2020 12:12 AM CDT) Magnesium 1.9 1.6 - 2.6 mg/dL 02/29/2020 12:53 AM T [facility] Blood BLOOD SPECIMEN / Unknown Lab Venipuncture / Unknown 02/29/2020 12:12 AM CDT 02/29/2020 12:22 AM CDT Lara Patrick [facility] LAB - CHEMISTRY ORDERABLES [address] [address], [facility] [phone] * (ABNORMAL) COMPREHENSIVE METABOLIC PANEL (02/29/2020 12:12 AM CDT) BUN 18 7 - 26 mg/dL 02/29/2020 12:53 AM CDT [facility] Creatinine 0.9 0.6 - 1.2 mg/dL 02/29/2020 12:53 AM CDT [facility] Sodium 143 136 - 145 mmol/L 02/29/2020 12:53 AM CDT [facility] Potassium 4.2 3.5 - 4.5 mmol/L 02/29/2020 12:53 AM CDT [facility] Chloride 111(H) 98 - 107 mmol/L 02/29/2020 12:53 AM CDT [facility] CO2 19(L) 22 - 29 mmol/L 02/29/2020 12:53 AM [facility] Glucose 122(H) 70 - 115 mg/dL 02/29/2020 12:53 AM [facility] Calcium 8.6 8.4 - 10.2 mg/dL 02/29/2020 12:53 AM [facility] Protein Total 5.5(L) 6.0 - 8.3 g/dL 02/29/2020 12:53 AM [facility] Albumin 2.6(L) 3.4 - 5.0 g/dL 02/29/2020 12:53 AM [facility] Bilirubin Total 0.2 0.2 - 1.2 mg/dL 02/29/2020 12:53 AM [facility] Alkaline Phosphatase 89 40 - 150 Units/L 02/29/2020 12:53 AM [facility] ALT 40 0 - 55 Units/L 02/29/2020 12:53 AM [facility] AST 26 5 - 34 Units/L 02/29/2020 12:53 AM [facility] Anion Gap 17 8 - 18 02/29/2020 12:53 AM [facility] BUN/Creatinine Ratio 20 7 - 23 02/29/2020 12:53 AM [facility] Osmolality Calculated 299 270 - 300 mOsm/kg 02/29/2020 12:53 AM [facility] Albumin/Globulin Ratio 0.9(L) 1.1 - 2.3 02/29/2020 12:53 AM [facility] eGFR >60 >60 mL/min/1.7 3 m2 02/29/2020 12:53 AM [facility] Blood BLOOD SPECIMEN / Unknown Lab Venipuncture / Unknown 02/29/2020 12:12 AM CDT 02/29/2020 12:22 AM CDT Tiffanie Nguyen [employer] TABLE OPERATOR-QUALITY PROCESS ENGINEER LAB - CHEMISTRY ORDERABLES [address] [address], [facility] [phone] * (ABNORMAL) CBC W AUTO DIFFERENTIAL (02/29/2020 12:12 AM CDT) WBC 26.1(H) 3.5 - 10.5 10? 3 /uL 02/29/2020 12:26 AM [facility] RBC 3.67(L) 4.30 - 5.70 10? 6 /uL 02/29/2020 12:26 AM [facility] Hemoglobin 10.7(L) 13.5 - 17.5 g/dL 02/29/2020 12:26 AM [facility] Hematocrit 31.1(L) 39.0 - 50.0 % 02/29/2020 12:26 AM [facility] MCV 84.7 81.0 - 97.0 fL 02/29/2020 12:26 AM [facility] MCH 29.2 28.0 - 34.0 pg 02/29/2020 12:26 AM [facility] MCHC 34.4 32.0 - 36.0 g/dL 02/29/2020 12:26 AM [facility] Platelet Count 440(H) 150 - 400 10? 3 /uL 02/29/2020 12:26 AM [facility] RDW-SD 51.1(H) 36.0 - 50.0 fL 02/29/2020 12:26 AM [facility] RDW-CV 16.3(H) 11.2 - 14.8 % 02/29/2020 12:26 AM [facility] MPV 10.5 9.3 - 12.8 fL 02/29/2020 12:26 AM [facility] nRBC Absolute 0.04(H) 0 10? 3 /uL 02/29/2020 12:26 AM [facility] nRBC Auto 0.2(H) 0 /100 WBC 02/29/2020 12:26 AM [facility] Neutrophils % 92.0(H) 35.0 - 70.0 % 02/29/2020 12:26 AM [facility] Lymphocytes % 3.9(L) 19.7 - 55.1 % 02/29/2020 12:26 AM [facility] Monocytes % 2.5(L) 3.0 - 15.0 % 02/29/2020 12:26 AM [facility] Eosinophils % 0.0 0.0 - 6.0 % 02/29/2020 12:26 AM [facility] Basophil % 0.1 0.0 - 1.5 % 02/29/2020 12:26 AM [facility] Neutrophils Absolute 24.0(H) 1.6 - 7.0 10? 3 /uL 02/29/2020 12:26 AM [facility] Lymphocyte Absolute 1.0 0.8 - 2.9 10? 3 /uL 02/29/2020 12:26 AM T [facility] Monocytes Absolute 0.64 0.14 - 0.66 10? 3 /uL 02/29/2020 12:26 AM [facility] Eosinophils Absolute 0.00 0.00 - 0.45 10? 3 /uL 02/29/2020 12:26 AM [facility] Basophils Absolute 0.03 0.00 - 0.06 10? 3 /uL 02/29/2020 12:26 AM [facility] Immature Granulocytes % 1.5(H) 0.0 - 1.0 % 02/29/2020 12:26 AM [facility] Blood BLOOD SPECIMEN / Unknown Lab Venipuncture / Unknown 02/29/2020 12:12 AM CDT 02/29/2020 12:22 AM CDT Tiffanie Nguyen BURN TABLE OPERATOR-QUALITY PROCESS ENGINEER LAB - HEMATOLOG Y ORDERABLES [address] [address] [phone] * VANCOMYCIN LEVEL TROUGH (02/28/2020 5:56 AM CDT) Vancomycin Trough 17.8 10.0 - 20.0 mcg/mL 02/28/2020 7:31 AM T [facility] Blood BLOOD SPECIMEN / Unknown Venipuncture / Unknown 02/28/2020 5:56 AM CDT 02/28/2020 7:04 AM CDT Katia Roque BURN TABLE OPERATOR-QUALITY PROCESS ENGINEER LAB - CHEMISTRY O RDERABLES [address] [address], [facility] [phone] * ASPERGILLUS GALACTOMANNAN AG BAL/BLOOD (02/28/2020 5:55 AM CDT) Pathologist [facility] Aspergillus Antigen BAL/Serum 0.05 0.00 - 0.49 Index 03/02/2020 1:06 AM CDT [facility] ([facility]) Other BLOOD SPECIMEN / Unknown Collection / Unknown 02/28/2020 5:55 AM CDT 02/28/2020 7:04 AM CDT Narrative [facility] ([facility]) - 03/02/2020 1:06 AM CDT Performed at: ??01 - [facility] ??[id number] Back Panel Padder: Sherri Nolan MD, Phone: ??[phone] Katia Roque BURN TABLE OPERATOR-[facility] LAB - CHEMISTRY O RDERABLES [facility] ([facility]) [address] * PHOSPHORUS BLOOD (02/27/2020 11:49 PM CDT) Pathologist [facility] Phosphorus 2.7 2.3 - 4.7 mg/dL 02/28/2020 12:35 AM CDT [facility] Blood BLOOD SPECIMEN / Unknown Lab Venipuncture / Unknown 02/27/2020 11:49 PM CDT 02/27/2020 11:52 PM CDT Tiffanie Nguyen BURN TABLE OPERATOR-QUALITY PROCESS ENGINEER LAB - CHEMISTRY ORDERABLES [address] [address], [facility] [phone] * MAGNESIUM BLOOD (02/27/2020 11:49 PM CDT) Pathologist [facility] Magnesium 1.8 1.6 - 2.6 mg/dL 02/28/2020 12:35 AM CDT [facility] Blood BLOOD SPECIMEN / Unknown Lab Venipuncture / Unknown 02/27/2020 11:49 PM CDT 02/27/2020 11:52 PM CDT Tiffanie Nguyen BURN TABLE OPERATOR-QUALITY PROCESS ENGINEER LAB - CHEMISTRY ORDERABLES [address] [address], [facility] [phone] * (ABNORMAL) COMPREHENSIVE METABOLIC PANEL (02/27/2020 11:49 PM CDT) BUN 16 7 - 26 mg/dL 02/28/2020 12:35 AM [facility] Creatinine 0.9 0.6 - 1.2 mg/dL 02/28/2020 12:35 AM [facility] Sodium 142 136 - 145 mmol/L 02/28/2020 12:35 AM [facility] Potassium 4.6(H) 3.5 - 4.5 mmol/L 02/28/2020 12:35 AM [facility] Chloride 108(H) 98 - 107 mmol/L 02/28/2020 12:35 AM [facility] CO2 22 22 - 29 mmol/L 02/28/2020 12:35 AM [facility] Glucose 141(H) 70 - 115 mg/dL 02/28/2020 12:35 AM [facility] Calcium 8.6 8.4 - 10.2 mg/dL 02/28/2020 12:35 AM [facility] Protein Total 5.7(L) 6.0 - 8.3 g/dL 02/28/2020 12:35 AM [facility] Albumin 2.6(L) 3.4 - 5.0 g/dL 02/28/2020 12:35 AM [facility] Bilirubin Total 0.1(L) 0.2 - 1.2 mg/dL 02/28/2020 12:35 AM [facility] Alkaline Phosphatase 97 40 - 150 Units/L 02/28/2020 12:35 AM [facility] ALT 29 0 - 55 Units/L 02/28/2020 12:35 AM [facility] AST 22 5 - 34 Units/L 02/28/2020 12:35 AM [facility] Anion Gap 17 8 - 18 02/28/2020 12:35 AM [facility] BUN/Creatinine Ratio 18 7 - 23 02/28/2020 12:35 AM [facility] Osmolality Calculated 298 270 - 300 mOsm/kg 02/28/2020 12:35 AM [facility] Albumin/Globulin Ratio 0.8(L) 1.1 - 2.3 02/28/2020 12:35 AM [facility] eGFR >60 >60 mL/min/1.7 3 m2 02/28/2020 12:35 AM [facility] Blood BLOOD SPECIMEN / Unknown Lab Venipuncture / Unknown 02/27/2020 11:49 PM CDT 02/27/2020 11:52 PM CDT Lara Patrick BURN TABLE OPERATOR-QUALITY PROCESS ENGINEER LAB - CHEMISTRY ORDERABLES Performing Organization Address City/State/[facility] Co de Phone Number [address] [address] [phone] * (ABNORMAL) CBC W AUTO DIFFERENTIAL (02/27/2020 11:49 PM CDT) WBC 19.0(H) 3.5 - 10.5 10? 3 /uL 02/28/2020 12:18 AM [facility] Comment:All CBC parameters h ave been checked. RBC 3.68(L) 4.30 - 5.70 10? 6 /uL 02/28/2020 12:18 AM [facility] Hemoglobin 10.7(L) 13.5 - 17.5 g/dL 02/28/2020 12:18 AM [facility] Hematocrit 31.5(L) 39.0 - 50.0 % 02/28/2020 12:18 AM [facility] MCV 85.6 81.0 - 97.0 fL 02/28/2020 12:18 AM [facility] MCH 29.1 28.0 - 34.0 pg 02/28/2020 12:18 AM [facility] MCHC 34.0 32.0 - 36.0 g/dL 02/28/2020 12:18 AM [facility] Platelet Count 444(H) 150 - 400 10? 3 /uL 02/28/2020 12:18 AM [facility] RDW-SD 49.8 36.0 - 50.0 fL 02/28/2020 12:18 AM [facility] RDW-CV 15.9(H) 11.2 - 14.8 % 02/28/2020 12:18 AM [facility] MPV 10.8 9.3 - 12.8 fL 02/28/2020 12:18 AM [facility] nRBC Absolute 0.02(H) 0 10? 3 /uL 02/28/2020 12:18 AM [facility] nRBC Auto 0.1(H) 0 /100 WBC 02/28/2020 12:18 AM [facility] Neutrophils % 89.2(H) 35.0 - 70.0 % 02/28/2020 12:18 AM [facility] Lymphocytes % 6.4(L) 19.7 - 55.1 % 02/28/2020 12:18 AM [facility] Monocytes % 3.2 3.0 - 15.0 % 02/28/2020 12:18 AM [facility] Eosinophils % 0.0 0.0 - 6.0 % 02/28/2020 12:18 AM [facility] Basophil % 0.1 0.0 - 1.5 % 02/28/2020 12:18 AM [facility] Neutrophils Absolute 17.0(H) 1.6 - 7.0 10? 3 /uL 02/28/2020 12:18 AM [facility] Lymphocyte Absolute 1.2 0.8 - 2.9 10? 3 /uL 02/28/2020 12:18 AM [facility] Monocytes Absolute 0.60 0.14 - 0.66 10? 3 /uL 02/28/2020 12:18 AM [facility] Eosinophils Absolute 0.00 0.00 - 0.45 10? 3 /uL 02/28/2020 12:18 AM [facility] Basophils Absolute 0.01 0.00 - 0.06 10? 3 /uL 02/28/2020 12:18 AM [facility] Immature Granulocytes % 1.1(H) 0.0 - 1.0 % 02/28/2020 12:18 AM CDT [facility] Blood BLOOD SPECIMEN / Unknown Lab Venipuncture / Unknown 02/27/2020 11:49 PM CDT 02/27/2020 11:52 PM CDT Tiffanie Nguyen BURN TABLE OPERATOR-QUALITY PROCESS ENGINEER LAB - HEMAT[place] [address], [facility] [phone] * PT-INR [facility] (02/27/2020 11:49 PM CDT) PT 14.2 12.1 - 14.8 Seconds 02/28/2020 12:06 AM CDT [facility] INR 1.1 See Comment 02/28/2020 12:06 AM CDT [facility] Comment:The suggested therap eutic range for standard coumadin (warfarin) therapy is an INR of 2.0-3.0. For high-risk patients (Mechanical Mitral Valve Prosthesis, etc.), the suggested prophylactic therapeutic range is an INR of 2.5-3.5. Blood BLOOD SPECIMEN / Unknown Lab Venipuncture / Unknown 02/27/2020 11:49 PM CDT 02/27/2020 11:52 PM CDT Katia Roque BURN TABLE OPERATOR-QUALITY PROCESS ENGINEER LAB - COAGULATION ORDERABLES Performing Organization Address City/[facility]/ZIP Co de Phone Number [address] [address], [facility] [phone] * SARS-COV-2 (COVID-19) IN HOUSE (02/27/2020 4:41 PM CDT) COVID-19 PCR Not detected Not detected, Invalid 02/28/2020 3:52 PM CDT [facility] Microbiology SPECIMEN FROM NASOPHARYNGEAL STRUCTURE / Unknown Collection / Unknown 02/27/2020 4:41 PM CDT 02/27/2020 4:49 PM CDT Narrative [facility] - 02/28/2020 3:52 PM CDT This Real Time RT-PCR assay was developed and its performance characteristics determined by [facility]. This test has been [...] authorization is terminated or revoked sooner. Katia [facility]que [facility] - MICROBIOLOG Y ORDERABLES Performing Organization Address City/[facility]/ZIP Co de Phone Number [facility] [address] [place], [place] [phone] [place] [address] * HISTOPLASMA GALACTOMANNAN AG URINE (02/27/2020 4:41 PM CDT) Urine URINE / Unknown Collection / Unknown 02/27/2020 4:41 PM CDT 02/27/2020 4:50 PM CDT Katia [facility]que [facility] - URINE CHEMI STRY ORDERABLES Performing Organization Address City/[facility] Co de Phone Number [facility] REF LAB NON INTERF [address] [place] [phone] * FLOW CYTOMETRY T-HELPER CELLS (CD4) COUNT (02/27/2020 3:14 PM CDT) Reason for test Diffuse large B-cell lymphoma, unspecified body region 02/28/2020 11:13 AM CDT [facility] Client Specimen ID # [id number] 02/28/2020 11:13 AM CDT [facility] Number of Markers 3 02/28/2020 11:13 AM CDT [facility] Flow Cytometry Results Differential Result Comment WBC Count /uL 19,000 % Lymphocytes 6 Lymphocyte Count u/L 1,140 Cell Region A: Lymphocytes Surface Marker Results % Absolute Count (cells/uL) CD3 88 1,003 CD3+CD4+ 6 68 CD3+CD8+ 81 923 CD4:CD8 Ratio 0.07 02/28/2020 11:13 AM [facility] Flow Cytometry Interpretation Testing is technical only and does not require an interpretation of results. 02/28/2020 11:13 AM [facility] Reference Range Adult Normal Reference Range Adult (> 18 years) CD3 54-84 % CD4 33-63 % CD8 12-39 % CD19 5-19 % CD56 6-26 % CD4+CD45RA+ 30-50 % CD4+CD45RO+ 17-42 % CD19+CD27+ 7-48 % CD19+CD27+IgD+ 7-29 % CD19+CD27+IgD- 3-23 % CD19+HH48-IiP+ 29-93 % % 02/28/2020 11:13 AM [facility] Disclaimer Test performed at [facility], [address] [place] [address], [id number]. This test was developed and its performance [...] perform high complexity clinical testing. By law [place], CD4 lymphocyte counts on patients with HIV infection must be reported by the physician to the State Health authority. 02/28/2020 11:13 AM [facility] Embedded Images 0 11:13 AM [facility] Blood BLOOD SPECIMEN / Unknown Lab Venipuncture / Unknown 02/27/2020 3:14 PM CDT 02/27/2020 3:22 PM CDT Katia Roque BURN TABLE OPERATOR-QUALITY PROCESS ENGINEER LAB - PATHOLOGY/C YTOLOGY ORDERABLES Performing Organization Address [facility]/ZIP Co de Phone Number [facility] [address] [facility] [place] [address], [facility] [phone] * BLASTOMYCES ANTIBODY BY ID (02/27/2020 3:14 PM CDT) Pathologist [facility] Blastomyces Antibody (ID) None Detected None Detected 03/03/2020 6:06 PM CDT [facility] ([facility]) Comment: INTERPRETIVE INFORMATION: Blastomyces dermatitidis Antibodies by ?[employer] A positive result may suggest active or recent infection. The test is positive in about 80 percent of cases. Cross reactions occur, especially with histoplasmosis. A negative test (none detected) does not exclude blastomycosis. Performed By: [facility] [address] [place] [address] Air Crew Officer: Toriibo Elizondo MD, MS Blood BLOOD SPECIMEN / Unknown Lab Venipuncture / Unknown 02/27/2020 3:14 PM CDT 02/27/2020 3:21 PM CDT Katia Roque [facility] - CHEMISTRY O RDERAFAWN Performing Organization Address [facility] de Phone Number [employer] ([facility]) [address] * HISTOPLASMA ANTIGEN BLOOD (02/27/2020 3:14 PM CDT) Pathologist [facility] Comment SEE SCANNED REPORT 03/07/2020 12:10 PM CDT [facility] ([facility]) Blood BLOOD SPECIMEN / Unknown Lab Venipuncture / Unknown 02/27/2020 3:14 PM CDT 02/27/2020 3:21 PM CDT Katia Roque [facility] - CHEMISTRY O RDERABLES Performing Organization Address [facility]/ZIP Co de Phone Number [facility] ([facility]) [address] [place] [address], [facility] * PTT [facility] (02/27/2020 4:11 AM CDT) APTT 37.9 23.0 - 38.4 Seconds 02/27/2020 6:36 AM [facility] Comment:Suggested therapeuti c range for full dose I.V. unfractionated heparin therapy for venous thromboembolism is 71 to 109 seconds. Blood BLOOD SPECIMEN / Unknown Lab Venipuncture / Unknown 02/27/2020 4:11 AM CDT 02/27/2020 6:32 AM CDT Hillary Apple MD LAB - COAGULATION OR DERABLES [address] [address], [facility] [phone] * (ABNORMAL) DIFFERENTIAL MANUAL (02/27/2020 4:11 AM CDT) Pathologist [facility] WBC (corrected for NRBC) 7.3 10? 3 /uL 02/27/2020 6:06 AM [facility] Total Cell Count 100 02/27/20 20 6:06 AM [facility] Neutrophils Absolute Manual 6.79 1.60 - 7.00 10? 3 /uL 02/27/2020 6:06 AM [facility] Comment:(BANDS+SEGS) x WBC = NEUT # (ANC) Lymphocyte Absolute Manual 0.44(L) 0.80 - 2.90 10? 3 /uL 02/27/2020 6:06 AM [facility] Monocytes Absolute Manual 0.07(L) 0.14 - 0.66 10? 3 /uL 02/27/2020 6:06 AM [facility] Band % Manual 3 0 - 10 % 02/27/2020 6:06 AM [facility] Neutrophil % Manual 90(H) 30 - 60 % 02/27/2020 6:06 AM [facility] Lymphocyte % Manual 6(L) 20 - 45 % 02/27/2020 6:06 AM [facility] Monocytes % Manual 1(L) 2 - 10 % 02/27/2020 6:06 AM [facility] Platelet Estimate Adequate Adequate 02/27/2020 6:06 AM [facility] Anisocytosis 1+(A) None 02/27/2020 6:06 AM CDT [facility] Polychromasia Occasional( A) None 02/27/2020 6:06 AM CDT [facility] Target Cells Few(A) None 02/27/2020 6:06 AM CDT [facility] Sravani Cells Occasional( A) None 02/27/2020 6:06 AM CDT [facility] Blood BLOOD SPECIMEN / Unknown Venipuncture / Unknown 02/27/2020 4:11 AM CDT 02/27/2020 4:18 AM CDT Tiffanie Alvess BURN TABLE OPERATOR-QUALITY PROCESS ENGINEER LAB - HEMATOLOG Y ORDERABLES [address] [phone] * PHOSPHORUS BLOOD (02/27/2020 4:11 AM CDT) Phosphorus 3.5 2.3 - 4.7 mg/dL 02/27/2020 4:36 AM CDT [facility] Blood BLOOD SPECIMEN / Unknown Venipuncture / Unknown 02/27/2020 4:11 AM CDT 02/27/2020 4:17 AM CDT Tiffanie Seymour Patrick BURN TABLE OPERATOR-[facility] LAB - CHEMISTRY ORDERABLES Performing Organization Address [facility]/ZIP Co de Phone Number [address] [address], [facility] [phone] * MAGNESIUM BLOOD (02/27/2020 4:11 AM CDT) Magnesium 1.9 1.6 - 2.6 mg/dL 02/27/2020 4:36 AM CDT [facility] Blood BLOOD SPECIMEN / Unknown Venipuncture / Unknown 02/27/2020 4:11 AM CDT 02/27/2020 4:17 AM CDT Laragiovanna Alvess BURN TABLE OPERATORFundlyQUALITY PROCESS ENGINEER LAB - CHEMISTRY ORDERABLES [address] [address] [phone] * (ABNORMAL) COMPREHENSIVE METABOLIC PANEL (02/27/2020 4:11 AM [facility]) BUN 12 7 - 26 mg/dL 02/27/2020 4:36 AM [facility] Creatinine 0.8 0.6 - 1.2 mg/dL 02/27/2020 4:36 AM [facility] Sodium 140 136 - 145 mmol/L 02/27/2020 4:36 AM [facility] Potassium 4.5 3.5 - 4.5 mmol/L 02/27/2020 4:36 AM [facility] Chloride 108(H) 98 - 107 mmol/L 02/27/2020 4:36 AM [facility] CO2 19(L) 22 - 29 mmol/L 02/27/2020 4:36 AM [facility] Glucose 145(H) 70 - 115 mg/dL 02/27/2020 4:36 AM [facility] Calcium 8.8 8.4 - 10.2 mg/dL 02/27/2020 4:36 AM [facility] Protein Total 6.2 6.0 - 8.3 g/dL 02/27/2020 4:36 AM [facility] Albumin 2.8(L) 3.4 - 5.0 g/dL 02/27/2020 4:36 AM [facility] Bilirubin Total 0.1(L) 0.2 - 1.2 mg/dL 02/27/2020 4:36 AM [facility] Alkaline Phosphatase 109 40 - 150 Units/L 02/27/2020 4:36 AM [facility] ALT 29 0 - 55 Units/L 02/27/2020 4:36 AM [facility] AST 22 5 - 34 Units/L 02/27/2020 4:36 AM [facility] Anion Gap 18 8 - 18 02/27/2020 4:36 AM [facility] BUN/Creatinine Ratio 15 7 - 23 02/27/2020 4:36 AM [facility] Osmolality Calculated 292 270 - 300 mOsm/kg 02/27/2020 4:36 AM [facility] Albumin/Globulin Ratio 0.8(L) 1.1 - 2.3 02/27/2020 4:36 AM [facility] eGFR >60 >60 mL/min/1.7 3 m2 02/27/2020 4:36 AM [facility] Blood BLOOD SPECIMEN / Unknown Venipuncture / Unknown 02/27/2020 4:11 AM CDT 02/27/2020 4:17 AM CDT Tiffanie Seymour Patrick BURN TABLE OPERATOR-QUALITY PROCESS ENGINEER LAB - CHEMISTRY ORDERABLES [address] [address], [facility] [phone] * (ABNORMAL) CBC W AUTO DIFFERENTIAL (02/27/2020 4:11 AM T) WBC 7.3 3.5 - 10.5 10? 3 /uL 02/27/2020 4:31 AM [facility] RBC 4.15(L) 4.30 - 5.70 10? 6 /uL 02/27/2020 4:31 AM [facility] Hemoglobin 11.9(L) 13.5 - 17.5 g/dL 02/27/2020 4:31 AM [facility] Hematocrit 35.4(L) 39.0 - 50.0 % 02/27/2020 4:31 AM [facility] MCV 85.3 81.0 - 97.0 fL 02/27/2020 4:31 AM [facility] MCH 28.7 28.0 - 34.0 pg 02/27/2020 4:31 AM [facility] MCHC 33.6 32.0 - 36.0 g/dL 02/27/2020 4:31 AM [facility] Platelet Count 402(H) 150 - 400 10? 3 /uL 02/27/2020 4:31 AM [facility] RDW-SD 49.6 36.0 - 50.0 fL 02/27/2020 4:31 AM [facility] RDW-CV 16.1(H) 11.2 - 14.8 % 02/27/2020 4:31 AM [facility] MPV 10.4 9.3 - 12.8 fL 02/27/2020 4:31 AM CDT [facility] nRBC Absolute 0.00 0 10? 3 /uL 02/27/2020 4:31 AM CDT [facility] nRBC Auto 0.0 0 /100 WBC 02/27/2020 4:31 AM CDT [facility] Blood BLOOD SPECIMEN / Unknown Venipuncture / Unknown 02/27/2020 4:11 AM CDT 02/27/2020 4:18 AM CDT Tiffanie Alvess BURN TABLE OPERATOR-QUALITY PROCESS ENGINEER LAB - HEMATOLOG Y ORDERABLES [address] [address], [facility] [phone] * (ABNORMAL) PT-INR [facility] (02/27/2020 4:11 AM CDT) PT 16.2(H) 12.1 - 14.8 Seconds 02/27/2020 4:30 AM CDT [facility] INR 1.3 See Comment 02/27/2020 4:30 AM CDT [facility] Comment:The suggested therap eutic range for standard coumadin (warfarin) therapy is an INR of 2.0-3.0. For high-risk patients (Mechanical Mitral Valve Prosthesis, etc.), the suggested prophylactic therapeutic range is an INR of 2.5-3.5. Blood BLOOD SPECIMEN / Unknown Venipuncture / Unknown 02/27/2020 4:11 AM CDT 02/27/2020 4:18 AM CDT Monica Latif BURN TABLE OPERATOR-QUALITY PROCESS ENGINEER LAB - COAGULATION ORDERABLES [address] [address], [facility] [phone] * TOXOPLASMA GONDII PCR (02/27/2020 4:11 AM CDT) Toxoplasma gondii PCR Not Detected 03/06/2020 10:16 AM CDT [facility] [facility] ([facility]) Comment: NOT DETECTED - A negative result does not rule out the presence of PCR inhibitors in the patient specimen or assay specific nucleic acid in concentrations below the level of detection by the assay. The specimen submitted for testing did not meet [facility] submission guidelines. Testing was performed on a specimen that did not meet validated type requirements. Performance characteristics of this assay may be affected. Interpret results with caution. Please refer to the [employer] [facility] Test Directory for information on specimen acceptability: [email or web address]/Specimen-Handling/index.jsp. INTERPRETIVE INFORMATION: Toxoplasma gondii by PCR This test was developed and its performance characteristics determined by [employer]. The U.S. Food and Drug Administration has not approved or cleared this test; however, FDA clearance or approval is not currently required for clinical use. The results are not intended to be used as the sole means for clinical diagnosis or patient management decisions. Performed by [facility], [address] [id number] [email or web address], Toribio Elizondo MD, Lab. Director Source Toxoplasma Blood 020 10:16 AM CDT [facility] ([facility]) Microbiology BLOOD SPECIMEN / Unknown Collection / Unknown 02/27/2020 4:11 AM CDT 02/27/2020 4:17 AM CDT Narrative [facility] ([facility]) - 03/06/2020 10:16 AM CDT Test results should be interpreted with caution. Assay was performed at client's request on a sub-optimal submission. Monica Latif BURN TABLE OPERATOR-QUALITY PROCESS ENGINEER LAB - MICROBIOLOGY ORDERABLES [facility]) [address] [place] [address], [facility] * BARTONELLA HENSELAE ANTIBODY IGM (02/27/2020 4:11 AM CDT) Bartonella henselae Antibody IgM < 1:16 03/01/2020 11:29 PM CDT [facility] ([facility]) Comment: INTERPRETIVE INFORMATION: Bartonella henselae Antibody, IgM [...] infection. Test developed and characteristics determined by [employer]. See Compliance Statement A: [employer] ([email or web address] Performed By: [facility] [address] [place] [address] Air Crew Officer: Toribio Elizondo MD, MS Blood BLOOD SPECIMEN / Unknown Venipuncture / Unknown 02/27/2020 4:11 AM CDT 02/27/2020 4:17 AM CDT Monica Latif BURN TABLE OPERATOR-QUALITY PROCESS ENGINEER LAB - SEROLOGY ORD ERABLES Performing Organization Address City/State/[facility] Co de Phone Number [employer] ([facility]) [address] * BARTONELLA HENSELAE ANTIBODY IGG (02/27/2020 4:11 AM CDT) Bartonella henselae Antibody IgG <1:64 03/01/2020 11:29 PM CDT [facility] ([facility]) Comment: INTERPRETIVE INFORMATION: Bartonella henselae Ab, IgG [...] time. Test developed and characteristics determined by [facility]. See Compliance Statement A: [employer] ([email or web address] Performed By: [facility] [address] [place] [address] Air Crew Officer: Toribio Elizondo MD, MS Blood BLOOD SPECIMEN / Unknown Venipuncture / Unknown 02/27/2020 4:11 AM CDT 02/27/2020 4:17 AM CDT Moniac Latif BURN TABLE OPERATOR-QUALITY PROCESS ENGINEER LAB - SEROLOGY ORD ERABLES [facility]) [address] [place] [address], [facility] * TOXOPLASMA GONDII ANTIBODY IGM (02/27/2020 4:11 AM CDT) Toxoplasma Antibody IgM 6.2 <=7.9 AU/mL 03/02/2020 4:23 PM CDT [facility] ([facility]) Comment: INTERPRETIVE INFORMATION: Toxoplasma Ab, IgM ??7.9 [...] post-infection. This test is performed using the [employer]. As suggested by the CDC, any [...] the amount of antibody present. Performed By: [facility] [address] [place] [id number] [employer] Crew Officer: Toribio Elizondo MD, MS Blood BLOOD SPECIMEN / Unknown Venipuncture / Unknown 02/27/2020 4:11 AM CDT 02/27/2020 4:17 AM CDT Monica Latif APRN-QUALITY PROCESS ENGINEER LAB - SEROLOGY ORD ERABLES Performing Organization Address City/[facility]/ZIP Co de Phone Number [employer] [facility]) [address] [place] [address] * TOXOPLASMA GONDII ANTIBODY IGG (02/27/2020 4:11 AM CDT) [facility] Toxoplasma Antibody IgG <3.0 IU/mL 03/01/2020 2:42 AM CDT [employer] ([facility]) Comment: INTERPRETIVE INFORMATION: Toxoplasma Ab, IgG ??7.1 [...] the amount of antibody present. Performed By: [facility] [address] [place] [address] Air Crew Officer: Toribio Elizondo MD, MS Blood BLOOD SPECIMEN / Unknown Venipuncture / Unknown 02/27/2020 4:11 AM CDT 02/27/2020 4:17 AM CDT Monica MIMS LAB - CHEMISTRY OR DERABLES [employer] [facility]) [address] [place] [address] * CRYPTOCOCCUS ANTIGEN BLOOD (02/27/2020 4:11 AM CDT) Cryptococcus Antigen Negative Negative 02/27/2020 9:20 AM CDT [facility] Blood BLOOD SPECIMEN / Unknown Venipuncture / Unknown 02/27/2020 4:11 AM CDT 02/27/2020 4:17 AM CDT Monica Latif BURN TABLE OPERATOR-QUALITY PROCESS ENGINEER LAB - SEROLOGY ORD ERABLES [facility] [address] [place] [address], [facility] [phone] * MRI BRAIN WWO CONTRAST (02/26/2020 9:47 [...] day 5 SPENCER 03/03/2020 1:15 AM CDT [facility] Blood PERIPHERAL BLOOD / Unknown Lab Venipuncture / Unknown 02/26/2020 5:11 PM CDT 02/26/2020 5:33 PM CDT Monica MIMS LAB - MICROBIOLOGY ORDERABLES Performing Organization Address City/[facility]/ZIP Co de Phone Number [facility] [address] [place] [address], [facility] [phone] * CULTURE BLOOD (02/26/2020 5:05 PM CDT) Culture No growth day 5 SPENCER 03/03/2020 1:15 AM CDT [facility] Blood PERIPHERAL BLOOD / Unknown Lab Venipuncture / Unknown 02/26/2020 5:05 PM CDT 02/26/2020 5:32 PM CDT Monica MIMS LAB - MICROBIOLOGY ORDERABLES Performing Organization Address [facility]/ZIP Co de Phone Number [facility] [address] [place] [address], [facility] [phone] * CULTURE BLOOD AFB (02/26/2020 5:05 PM CDT) Culture No acid-fast bacillus isolated 04/11/2020 4:08 PM CDT [facility] Blood PERIPHERAL BLOOD / Unknown Lab Venipuncture / Unknown 02/26/2020 5:05 PM CDT 02/26/2020 6:56 PM CDT Monica MIMS LAB - MICROBIOLOGY ORDERABLES Performing Organization Address City/[facility]/ZIP Co de Phone Number [facility] [address] [place] [address], [facility] [phone] * CULTURE BLOOD FUNGUS (02/26/2020 5:05 PM CDT) Culture No fungus isolated SPENCER 04/11/2020 10:26 AM CDT [facility] Blood PERIPHERAL BLOOD / Unknown Lab Venipuncture / Unknown 02/26/2020 5:05 PM CDT 02/26/2020 5:32 PM CDT Monica Latif BURN TABLE OPERATOR-QUALITY PROCESS ENGINEER LAB - MICROBIOLOGY ORDERABLES [facility] [address] [place] [address], [facility] [phone] * CT CHEST ABDOMEN PELVIS W CONT [...] or pelvis. Dictated by Love Rowland MD (radiology technician). I, Dr. JOHN BLUM MD have personally [...] or pelvis. Dictated by Love Rowland MD (radiology technician). I, Dr. JOHN BLUM MD have personally reviewed and interpreted this examination/study. This report was electronically signed by JOHN BLUM MD on02/27/2020 7:01 AM . Katia Roque BURN TABLE OPERATOR-QUALITY PROCESS ENGINEER CT ORDERABLES * ADENOVIRUS PCR QUANTITATIVE (02/26/2020 12:01 PM CDT) Adenovirus Quantitative Copy/mL <1,000 cpy/mL 03/03/2020 3:35 PM CDT [facility] ([facility]) Adenovirus Quantitative Source Blood 03/03/2020 3:35 PM CDT [facility] ([facility]) Adenovirus Quantitative Log Copy/mL <3.0 log cpy/mL 03/03/2020 3:35 PM CDT [facility] ([facility]) Interpretation Adenovirus Quantitative Not Detected Not Detected 03/03/2020 3:35 PM CDT [facility] ([facility]) Comment: INTERPRETIVE INFORMATION: Adenovirus, Quantitative PCR The [...] methodologies. Test developed and characteristics determined by [employer]. See Compliance Statement A: Nitro PDF/CS Performed by [employer], [address] [place] [address] [email or web address], Toribio Elizondo MD, Lab. Director Blood BLOOD SPECIMEN / Unknown Lab Venipuncture / Unknown 02/26/2020 12:01 PM CDT 02/26/2020 12:30 PM CDT Katia Mya BULLARDN-QUALITY PROCESS ENGINEER LAB - SEROLOGY OR DERABLES [facility] ([facility]) [address] [place] [address], [facility] * ISA-JUAN VIRUS QUANT BLOOD STL (02/26/2020 12:01 PM CDT) Pathologist [facility] EBV Quant by PCR, Interp Not Detected Not Detected 02/28/2020 2:27 PM CDT [facility] Specimen Type Plasma 02/28/2020 2:27 PM CDT [facility] Blood BLOOD SPECIMEN / Unknown Lab Venipuncture / Unknown 02/26/2020 12:01 PM CDT 02/26/2020 12:30 PM CDT Narrative [facility] - 02/28/2020 2:27 PM [...] developed and its performance characteristics determined by [facility]. ??It has not been cleared [...] high complexity clinical laboratory testing. Katia Roque BURN TABLE OPERATOR-QUALITY PROCESS ENGINEER LAB - CHEMISTRY O RDERABLES [facility] [address] [place], [place] [address], [facility] [phone] * CYTOMEGALOVIRUS (CMV) QUANTITATIVE PLASMA (02/26/2020 12:01 PM CDT) Pathologist [facility] CMV Quant by PCR, Interp Not Detected Not Detected 02/28/2020 5:30 PM CDT [facility] Blood BLOOD SPECIMEN / Unknown Lab Venipuncture / Unknown 02/26/2020 12:01 PM CDT 02/26/2020 12:30 PM CDT Narrative [facility] - 02/28/2020 5:30 PM [...] using an US FDA approved test methodology ([employer] RealTime CMV). [facility] - CHEMISTRY O RDERABLES Performing Organization Address City/[facility]/ZIP Co de Phone Number [facility] [address] [place], [address] [phone] * (ABNORMAL) IGG BLOOD (02/26/2020 12:01 PM CDT) [facility] IgG 209(L) 540-1,822 mg/dL 02/26/2020 1:11 PM CDT [facility] Blood BLOOD SPECIMEN / Unknown Lab Venipuncture / Unknown 02/26/2020 12:01 PM CDT 02/26/2020 12:30 PM CDT Katia Roque [facility] LAB - CHEMISTRY O RDERABLES Performing Organization Address City/[facility]/ZIP Co de Phone Number [place] [phone] [phone] * (ABNORMAL) LDH BLOOD (02/26/2020 12:42 AM CDT) [facility] LDH Total 280(H) 125 - 243 Units/L 02/26/2020 1:14 AM CDT [facility] Blood BLOOD SPECIMEN / Unknown Lab Venipuncture / Unknown 02/26/2020 12:42 AM CDT 02/26/2020 12:48 AM CDT Tiffanie Nguyen BURN TABLE OPERATORPromoJam LAB - CHEMISTRY ORDERABLES Performing Organization Address [facility]/State/[place] [address], [facility] [phone] * MAGNESIUM BLOOD (02/26/2020 12:42 AM CDT) [facility] Magnesium 1.7 1.6 - 2.6 mg/dL 02/26/2020 1:14 AM CDT [facility] Blood BLOOD SPECIMEN / Unknown Lab Venipuncture / Unknown 02/26/2020 12:42 AM CDT 02/26/2020 12:48 AM CDT Tiffanie Nguyen BURN TABLE OPERATORPromoJam LAB - CHEMISTRY ORDERABLES Performing Organization Address [facility]/[place] [address], [facility] [phone] * (ABNORMAL) COMPREHENSIVE METABOLIC PANEL (02/26/2020 12:42 AM CDT) [facility] BUN 11 7 - 26 mg/dL 02/26/2020 1:14 AM CDT [facility] Creatinine 1.0 0.6 - 1.2 mg/dL 02/26/2020 1:14 AM CDT [facility] Sodium 136 136 - 145 mmol/L 02/26/2020 1:14 AM CDT [facility] Potassium 3.9 3.5 - 4.5 mmol/L 02/26/2020 1:14 AM CDT [facility] Chloride 102 98 - 107 mmol/L 02/26/2020 1:14 AM [facility] CO2 23 22 - 29 mmol/L 02/26/2020 1:14 AM [facility] Glucose 97 70 - 115 mg/dL 02/26/2020 1:14 AM [facility] Calcium 8.6 8.4 - 10.2 mg/dL 02/26/2020 1:14 AM [facility] Protein Total 5.9(L) 6.0 - 8.3 g/dL 02/26/2020 1:14 AM [facility] Albumin 2.7(L) 3.4 - 5.0 g/dL 02/26/2020 1:14 AM [facility] Bilirubin Total 0.1(L) 0.2 - 1.2 mg/dL 02/26/2020 1:14 AM [facility] Alkaline Phosphatase 110 40 - 150 Units/L 02/26/2020 1:14 AM [facility] ALT 31 0 - 55 Units/L 02/26/2020 1:14 AM [facility] AST 29 5 - 34 Units/L 02/26/2020 1:14 AM [facility] Anion Gap 15 8 - 18 02/26/2020 1:14 AM [facility] BUN/Creatinine Ratio 11 7 - 23 02/26/2020 1:14 AM [facility] Osmolality Calculated 281 270 - 300 mOsm/kg 02/26/2020 1:14 AM [facility] Albumin/Globulin Ratio 0.8(L) 1.1 - 2.3 02/26/2020 1:14 AM [facility] eGFR >60 >60 mL/min/1.7 3 m2 02/26/2020 1:14 AM [facility] Blood BLOOD SPECIMEN / Unknown Lab Venipuncture / Unknown 02/26/2020 12:42 AM CDT 02/26/2020 12:48 AM [facility] Tiffanie Nguyen BURN TABLE OPERATOR-QUALITY PROCESS ENGINEER LAB - CHEMISTRY ORDERABLES [address] [id number] [phone] * (ABNORMAL) URINALYSIS REFLEX TO MICROSCOPIC NO CULTURE (02/26/2020 12:08 AM [facility]) Color UA Yellow Straw, Yellow, Colorless 02/26/2020 12:28 AM [facility] Clarity UA Clear Clear, [facility] Cloudy 02/26/2020 12:28 AM [facility] Specific [place] UA 1.031(H) 1.005 - 1.030 02/26/2020 12:28 AM [facility] pH UA 5.0 5.0 - 8.0 pH 02/26/2020 12:28 AM [facility] Protein UA 2+(A) Negative mg/dL 02/26/2020 12:28 AM [facility] Glucose UA Negative Negative mg/dL 02/26/2020 12:28 AM [facility] Ketone UA Negative Negative mg/dL 02/26/2020 12:28 AM [facility] Bilirubin UA Negative Negative mg/dL 02/26/2020 12:28 AM [facility] Blood UA Negative Negative 02/26/2020 12:28 AM [facility] Nitrite UA Negative Negative 02/26/2020 12:28 AM [facility] Leukocyte Esterase Negative Negative 02/26/2020 12:28 AM [facility] Urobilinogen UA Negative Negative mg/dL 02/26/2020 12:28 AM [facility] RBC UA 3-5 None Seen, 0-2, 3-5 /HPF 02/26/2020 12:28 AM [facility] WBC UA 0-5 None Seen, 0-5 /HPF 02/26/2020 12:28 AM [facility] Squamous Epithelial Cells UA None Seen None Seen, 0-2 /HPF 02/26/2020 12:28 AM [facility] Mucus UA 1+ None, 1+ /LPF 02/26/2020 12:28 AM [facility] Urine URINE SPECIMEN OBTAINED BY CLEAN CATCH PROCEDURE / Unknown Collection / Unknown 02/26/2020 12:08 AM CDT 02/26/2020 12:19 AM [facility] - 02/26/2020 12:28 AM CDT Tiffanie Nguyen [facility] LAB - URINALYSI S ORDERABLES [facility] [address] [place] [phone], [facility] [phone] * CULTURE URINE (02/26/2020 12:08 AM CDT) Culture Urine No growth (<100 CFU/mL) SPENCER 02/27/2020 7:44 AM CDT [facility] Urine URINE SPECIMEN OBTAINED BY CLEAN CATCH PROCEDURE / Unknown Collection / Unknown 02/26/2020 12:08 AM CDT 02/26/2020 12:19 AM CDT Tiffanie Nguyen [facility] LAB - MICROBIOL OGY ORDERABLES [facility] [address] [place] [address], [facility] [phone] * CULTURE BLOOD (02/25/2020 10:55 PM CDT) Culture No growth day 5 SPENCER 03/02/2020 1:52 AM CDT [facility] Blood PERIPHERAL BLOOD / Unknown Venipuncture / Unknown 02/25/2020 10:55 PM CDT 02/25/2020 11:02 PM CDT Tiffanie Nguyen [facility] LAB - MICROBIOL OGY ORDERABLES Performing Organization Address City/[facility]/ZIP Co de Phone Number [facility] [address] [place] [address], [facility] [phone] * SARS-COV-2 (COVID-19) ANTIBODY IGG (02/25/2020 10:52 PM CDT) CoV2 IGG Negative 02/26/2020 1:16 AM CDT [facility] Blood BLOOD SPECIMEN / Unknown Venipuncture / Unknown 02/25/2020 10:52 PM CDT 02/26/2020 12:27 AM CDT Narrative [facility] - 02/26/2020 1:16 AM CDT This serologic based test was developed by [employer] and its performance characteristics determined by [facility]. This test has not [...] due to past or present infection with [id number] coronavirus strains. Rigorous scientific studies have not been completed to determine if detectable IgG to SARS-CoV-2 confers protective immunity. Tiffanie Nguyen BURN TABLE O[facility]ATOR[facility]EN[facility]AL [facility]PITAL LAB - CHEMISTRY ORDERABLES Performing Organization Address [facility]/ZIP Co de Phone Number [address] [address] [phone] * PHOSPHORUS BLOOD (02/25/2020 10:52 PM CDT) [facility] Phosphorus 2.9 2.3 - 4.7 mg/dL 02/26/2020 12:17 AM CDT [facility] Blood BLOOD SPECIMEN / Unknown Venipuncture / Unknown 02/25/2020 10:52 PM CDT 02/25/2020 11:02 PM CDT Tiffanie Nguyen [facility] LAB - CHEMISTRY ORDERABLES Performing Organization Address City/[facility]/ZIP Co de Phone Number [address] [address], [facility] [phone] * (ABNORMAL) CBC W AUTO DIFFERENTIAL (02/25/2020 10:52 PM CDT) [facility] WBC 8.5 3.5 - 10.5 10? 3 /uL 02/25/2020 11:08 PM CDT [facility] RBC 4.28(L) 4.30 - 5.70 10? 6 /uL 02/25/2020 11:08 PM CDT [facility] Hemoglobin 12.4(L) 13.5 - 17.5 g/dL 02/25/2020 11:08 PM [facility] Hematocrit 36.4(L) 39.0 - 50.0 % 02/25/2020 11:08 PM [facility] MCV 85.0 81.0 - 97.0 fL 02/25/2020 11:08 PM [facility] MCH 29.0 28.0 - 34.0 pg 02/25/2020 11:08 PM [facility] MCHC 34.1 32.0 - 36.0 g/dL 02/25/2020 11:08 PM [facility] Platelet Count 464(H) 150 - 400 10? 3 /uL 02/25/2020 11:08 PM [facility] RDW-SD 48.6 36.0 - 50.0 fL 02/25/2020 11:08 PM [facility] RDW-CV 16.0(H) 11.2 - 14.8 % 02/25/2020 11:08 PM [facility] MPV 11.4 9.3 - 12.8 fL 02/25/2020 11:08 PM [facility] nRBC Absolute 0.00 0 10? 3 /uL 02/25/2020 11:08 PM [facility] nRBC Auto 0.0 0 /100 WBC 02/25/2020 11:08 PM [facility] Neutrophils % 65.2 35.0 - 70.0 % 02/25/2020 11:08 PM [facility] Lymphocytes % 22.5 19.7 - 55.1 % 02/25/2020 11:08 PM [facility] Monocytes % 9.4 3.0 - 15.0 % 02/25/2020 11:08 PM [facility] Eosinophils % 1.5 0.0 - 6.0 % 02/25/2020 11:08 PM [facility] Basophil % 0.7 0.0 - 1.5 % 02/25/2020 11:08 PM [facility] Neutrophils Absolute 5.5 1.6 - 7.0 10? 3 /uL 02/25/2020 11:08 PM [facility] Lymphocyte Absolute 1.9 0.8 - 2.9 10? 3 /uL 02/25/2020 11:08 PM CDT [facility] Monocytes Absolute 0.80(H) 0.14 - 0.66 10? 3 /uL 02/25/2020 11:08 PM CDT [facility] Eosinophils Absolute 0.13 0.00 - 0.45 10? 3 /uL 02/25/2020 11:08 PM CDT [facility] Basophils Absolute 0.06 0.00 - 0.06 10? 3 /uL 02/25/2020 11:08 PM CDT [facility] Immature Granulocytes % 0.7 0.0 - 1.0 % 02/25/2020 11:08 PM CDT [facility] Blood BLOOD SPECIMEN / Unknown Venipuncture / Unknown 02/25/2020 10:52 PM CDT 02/25/2020 11:02 PM CDT Tiffanie Nguyen [facility] LAB - HEMATOLOG Y ORDERABLES [facility] [address] [place] [phone], [facility] [phone] * CULTURE BLOOD (02/25/2020 10:52 PM CDT) Pathologist [facility] Culture No growth day 5 SPENCER 03/02/2020 1:52 AM CDT [facility] Blood PERIPHERAL BLOOD / Unknown Venipuncture / Unknown 02/25/2020 10:52 PM CDT 02/25/2020 11:02 PM CDT Tiffanie Nguyen [facility] LAB - MICROBIOL OGY ORDERABLES [facility] [address] [place] [address], [facility] [phone] * SARS-COV-2 (COVID-19) IN HOUSE (02/25/2020 10:37 PM CDT) COVID-19 PCR Not detected Not detected, Invalid 02/26/2020 4:19 PM CDT [facility] Microbiology SPECIMEN FROM NASOPHARYNGEAL STRUCTURE / Unknown Collection / Unknown 02/25/2020 10:37 PM CDT 02/25/2020 11:02 PM CDT Narrative [facility] - 02/26/2020 4:19 PM CDT This Real Time RT-PCR assay was developed and its performance characteristics determined by [facility]. This test has been [...] is terminated or revoked sooner. Tiffanie Nguyen BURN TABLE OPERATOR-QUALITY PROCESS ENGINEER LAB - MICROBIOL OGY ORDERABLES [facility] [address] [place] [address], [facility] [phone] * RESPIRATORY PATHOGEN PANEL BY PCR (02/25/2020 10:37 PM CDT) Adenovirus PCR Not detected Not detected, Invalid, Indeterminate 02/26/2020 5:21 AM CDT [facility] Coronavirus PCR Not detected Not detected, Invalid, Indeterminate 02/26/2020 5:21 AM CDT [facility] Human Metapneumovirus PCR Not detected Not detected, Invalid, Indeterminate 02/26/2020 5:21 AM CDT [facility] Human Rhinovirus/Entero virus PCR Not detected Not detected, Invalid, Indeterminate 02/26/2020 5:21 AM CDT [facility] Influenza A PCR Not detected Not detected, Equivocal, Invalid, Indeterminate 02/26/2020 5:21 AM CDT [facility] Influenza B PCR Not detected Not detected, Invalid, Indeterminate 02/26/2020 5:21 AM CDT [facility] Parainfluenza Virus 1 PCR Not detected Not detected, Invalid, Indeterminate 02/26/2020 5:21 AM CDT [facility] Parainfluenza Virus 2 PCR Not detected Not detected, Invalid, Indeterminate 02/26/2020 5:21 AM CDT [facility] Parainfluenza Virus 3 PCR Not detected Not detected, Invalid, Indeterminate 02/26/2020 5:21 AM CDT [facility] Parainfluenza Virus 4 PCR Not detected Not detected, Invalid, Indeterminate 02/26/2020 5:21 AM CDT [facility] Respiratory Syncytial Virus PCR Not detected Not detected, Invalid, Indeterminate 02/26/2020 5:21 AM CDT [facility] Bordetella pertussis PCR Not detected Not detected, Invalid 02/26/2020 5:21 AM CDT [facility] Chlamydia pneumoniae PCR Not detected Not detected, Invalid, Indeterminate 02/26/2020 5:21 AM CDT [facility] Mycoplasma pneumoniae PCR Not detected Not detected, Invalid, Indeterminate 02/26/2020 5:21 AM CDT [facility] Microbiology SPECIMEN FROM NASOPHARYNGEAL STRUCTURE / Unknown Collection / Unknown 02/25/2020 10:37 PM CDT 02/25/2020 11:02 PM CDT Narrative [facility] - 02/26/2020 5:21 AM CDT This test is able to detect the following human coronaviruses: HKU1, NL63, 229E, and OC43. It will NOT detect 2019 Novel Coronavirus (2019-nCoV). If 2019-nCoV is suspected contact Infection Prevention for isolation and testing guidance. Tiffanie Nguyen BURN TABLE OPERATOR-QUALITY PROCESS ENGINEER LAB - MICROBIOL OGY ORDERABLES [facility] [address] [place], [place] [address], [facility] [phone] * XR CHEST 1VW PORTABLE (02/25/2020 10:04 [...] is intact. Dictated by Javier Robertson MD (radiology technician). Dr. OMAR Harris have personally reviewed and [...] is intact. Dictated by Javier Robertson MD (radiology technician). Dr. OMAR Harris have personally reviewed and interpreted this examination/study. This report was electronically signed by OMAR WOODSON on 02/26/2020 1:48 PM . 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[facility]) Bone marrow replaced by transplant Abnormal CXR Other nonspecific abnormal finding of lung field documented in this encounter Administered Medications Inactive Administered Medications - up to 3 most recent administrations Medication Order MAR Action Action Date Dose Rate Site 0.9% NaCl injection 1-10 mL 1-10 mL, [...] Given 04/04/2020 5:02 AM CDT 3 mL acetaminophen (TYLENOL) tablet 325 mg 325 mg, Oral, EVERY 4 HOURS PRN, Fever, Moderate Pain, Severe Pain, Headache, Starting on Ofelia 03/09/20 at 2022, Until Fri04/05/20 at 2216, Blood cultures to be done every 48 hrs unless unstable. Last at 1800. $ Given 03/09/2020 9:16 PM CDT 325 mg albuterol HFA (PROVENTIL;VENTOLIN;PROAIR) 108 (90 Base) MCG/ACT inhaler 2 puff 2 puff, Inhalation, EVERY 4 HOURS, First dose on Ofelia 03/02/20 at 2000, Until Discontinued, Shake well before using. WASTE DISPOSAL INSTRUCTION: Send to Pharmacy for Disposal. $ Given 04/05/2020 4:00 PM CDT 2 puffs $ Given 04/05/2020 12:00 PM CDT 2 puffs $ Given 04/05/2020 9:35 AM CDT 2 puffs artificial tears ophthalmic ointment Each Eye, EVERY 8 HOURS, First dose on Fri03/06/20 at 2200, Until Discontinued $ Given 04/04/2020 9:20 PM CDT $ Given 04/01/2020 8:29 PM CDT $ Given 04/01/2020 2:10 PM CDT budesonide-formoterol (SYMBICORT) 80-4.5 MCG/ACT inhaler 2 puff 2 puff, Inhalation, 2 TIMES DAILY, First dose on Fri03/22/20 at 0930, Until Discontinued, Rinse mouth after usage . WASTE DISPOSAL INSTRUCTION: Send to Pharmacy for Disposal. . $ Given 04/05/2020 9:36 AM CDT 2 puffs $ Given 04/04/2020 9:20 PM CDT 2 puffs $ Given 04/04/2020 8:09 AM CDT 2 puffs celecoxib (CeleBREX) capsule 100 mg 100 mg, Oral, 2 TIMES DAILY PRN, Joint pain, Starting on Fri04/05/20 at 1100, Until Fri04/05/20 at 2216 enoxaparin (LOVENOX) injection 120 mg 120 mg, [...] AM CDT 120 mg Ab dominal Tissue escitalopram (LEXAPRO) tablet 10 mg 10 mg, Oral, DAILY, First dose on Fri03/10/20 at 1230, Until Discontinued $ Given 04/05/2020 9:34 AM CDT 10 mg $ Given 04/04/2020 8:05 AM CDT 10 mg $ Given 04/03/2020 8:36 AM CDT 10 mg loratadine (CLARITIN) tablet 10 mg 10 mg, Oral, DAILY, First dose on Fri04/04/20 at 1030, Until Discontinued $ Given 04/05/2020 9:35 AM CDT 10 mg $ Given 04/04/2020 11:47 AM CDT 10 mg magnesium sulfate 2 g in 50 [...] Given 03/24/2020 8:57 AM CDT 5 mg pantoprazole EC (PROTONIX) tablet 40 mg 40 mg, Oral, DAILY, First dose on Fri03/09/20 at 0900, Until Discontinued, Do not crush, chew, or cut in half. $ Given 04/05/2020 9:35 AM CDT 40 mg $ Given 04/04/2020 8:05 AM CDT 40 mg $ Given 04/03/2020 8:35 AM CDT 40 mg penicillin v potassium (VEETIDS) tablet 500 mg 500 mg, Oral, EVERY 12 HOURS, First dose (after last modification) on Fri04/05/20 at 1730, Until Discontinued, Indication for anti-infective therapy: Chronic prophylaxis $ Given 04/05/2020 5:21 PM CDT 500 mg predniSONE (DELTASONE) tablet 20 mg 20 mg, Oral, DAILY WITH BREAKFAST, First dose (after last modification) on Fri04/03/20 at 0730, Until Discontinued $ Given 04/05/2020 7:21 AM CDT 20 mg $ Given 04/04/2020 6:42 AM CDT 20 mg $ Given 04/03/2020 8:35 AM CDT 20 mg prochlorperazine (COMPAZINE) injection 10 mg 10 mg, Intravenous, EVERY 6 HOURS PRN, Nausea/Vomiting, Starting on 03/04/20 at 1411, Until Fri04/05/20 at 2216, Max intravenous rate = 5 mg/min prochlorperazine (COMPAZINE) tablet 5 mg 5 mg, Oral, EVERY 8 HOURS PRN, Nausea/Vomiting, Starting on 03/04/20 at 1411, Until Fri04/05/20 at 2216 rOPINIRole (REQUIP) tablet 0.25 mg 0.25 mg, Oral, AT BEDTIME, First dose on Fri03/10/20 at 2100, Until Discontinued $ Given 04/04/2020 9:21 PM CDT 0.25 mg $ Given 04/03/2020 9:46 PM CDT 0.25 mg $ Given 04/02/2020 9:55 PM CDT 0.25 mg saline nasal spray (OCEAN; BABY AYR) [...] Given 03/31/2020 5:28 PM CDT 1 tablet thiamine (VITAMIN B-1) tablet 200 mg 200 mg, Oral, EVERY 12 HOURS, First dose (after last modification) on 03/11/20 at 1215, Until Discontinued $ Given 04/05/2020 [...] Given 04/04/2020 8:05 AM CDT 500 mg vitamin D3-cholecalciferol (CHOLECALCIFEROL) 25 MCG (1000 UNITS) tablet 2,000 Units 2,000 Units, Oral, DAILY, First dose on 03/11/20 at 1215, Until Discontinued, 1000 units = 25 mcg $ Given 04/05/2020 9:34 AM CDT 2,000 Unit s $ Given 04/04/2020 8:05 AM CDT 2,000 Units $ Given 04/03/2020 8:35 AM CDT 2,000 Units documented in this encounter Active and Recently [...] - Provider: Darwin Serrano RN) albuterol HFA (PROVENTIL;VENTOLIN;ID OAIR) 108 (90 Base) MCG/ACT inhaler 2 [...] 0837 ($ Given - Provider: Izzy Garcia RN)2146 ($ Given - Provider: Kesha Bah RN) 08 ($ Given - Provider: Izzy Garcia RN)2119 ($ Given - Provider: Fatemeh Bolaños RN) 0936 ($ Given - Provider: Darwin Serrano RN)2100 (Due) celecoxib (CeleBREX) capsule 100 mg (CANCELED) 100 mg, Oral, 2 TIMES DAILY, First dose (after last reorder) on Fri03/24/20 at 1200, Until Discontinued 0836 ($ Given - Provider: Izzy Garcia RN)2145 ($ Given - Provider: Kesha Bah RN) 08 ($ Given - Provider: Izzy Garcia RN)2119 [...] 0836 ($ Given - Provider: Izzy Garcia RN)2148 ($ Given - Provider: Kesha Bah RN) 08 ($ Given - Provider: Izzy Garcia RN)212 [...] dose on Fri03/10/20 at 2100, Until Discontinued 2146 ($ Given - Provider: Kesha Bah RN) [...] 0037 ($ Given - Provider: Fatemeh Bolaños RN)0934 ($ Given - Provider: Darwin Serrano RN)1721 [...] Ofelia 03/09/20 at 2023, Until Fri04/05/20 at 2216, Blood cultures to be done [...] on 03/04/20 at 1411, Until Fri04/05/20 at 221, Max intravenous rate = 5 mg/min prochlorperazine (COMPAZINE) tablet 5 mg 5 mg, Oral, EVERY 8 HOURS PRN, Nausea/Vomiting, Starting on 03/04/20 at 1411, Until Fri04/05/20 at 2216 saline nasal spray (OCEAN; BABY AYR) 0.65 % nasal spray 2 spray 2 spray, Each Nostril, EVERY 2 HOURS PRN, Dry Nose, Starting on 03/18/20 at 2117, Until Fri04/05/20 at 2216 Linked [...] COVID-19 Confirmed 03/06/2020 07/14/2020 0 4:[address] COVID-19 Under Investigation 03/07/2020 03/07/2020 03/09/2020 8:54 AM CDT COVID-19 Under Investigation 03/29/2020 03/29/2020 03/30/2020 9:42 AM CDT documented as of this encounter Care Teams Printed Circuit Board Assembly Repairer Relationship Specialty Start Date End Date Ran Nuñez MD [address] [place] [address] PCP - General Family Medicine 03/22/19 12/22/20 Hillary Apple MD [address] [place] [address] Hematology and Oncology 03/17/19 Bill Ferrera MD [address] [place] [address] Hematology and Oncology 03/17/19 08/27/21 Tony Dumont MD [address] [place] [address] Hematology and Oncology 03/17/19 Maryjo Reinoso, BAND AID MACHINE OPERATOR Associate Director 03/17/19 Madyson Clay, PharmD 03/17/19 Dana Lala, BURN TABLE OPERATOR-MERCHANDISE HANDLER [address] [facility] 2nd [place] [address] Oncology 03/17/19 Tiffanie Nguyen, BURN TABLE OPERATOR-QUALITY PROCESS ENGINEER [address] [facility] 2nd [place] [address] Family Medicine 03/17/19 Stephanie Mahoney, RN Registered Nurse 03/17/19 10/29/21 Alycia Galvan, ROSEMARY 03/17/19 10/29/21 Cesar Tavares MD [address] [place] [address] [place] [address] Referring Physician Medical Oncology 03/23/19 Karie Jones, RN Registered Nurse 06/08/19 10/29/21 Joy Bob 09/22/19 Addison Shea, PharmD Pharmacist 09/22/19 10/29/21 documented as of this encounter
--- OUTSIDE RECORDS SUMMARY | 2024-08-18 00:29 | XMS_ITS | Encounter Summary ---
Author Organization [facility] Address [address] [facility] [place] [address] Care Team Providers Care Starch Factory Laborer Name Role Phone Hillary Apple MD Unavailable [phone] Bill Ferrera MD Unavailable [phone] Tony Dumont MD Unavailable [phone] Maryjo Reinoso [facility] Unavailable Unavailable Madyson Clay PharmD Unavailable Unavaila Dana Galicia INTERSTATE PLANNER-SHIP RUNNER Unavailable [phone] Tiffanie Nguyen INTERSTATE PLANNER-CAR SEAT MAKER Unavailable [phone] Stephanie Mahoney RN Unavailable Unavailable Alycia Galvan RN Unavailable UnavailRan Mejía MD Primary Care Provider Cesar Tavares MD Unavailable [phone] Karie Jones RN Unavailable Unavailable Joy Bob Unavailable Fanta Addison Weinstein PharmD Unavailable Unavailab le Encounter Details Date Type Department Care Team (Late st Contact Info) Description 02/10/2020 Telephone [facility] [address] [place] [address] Su Anderson, RN Social History Tobacco Use Types Packs/Day [...] encounter Miscellaneous Notes * Telephone Encounter - Su Anderson RN - 02/10/2020 11:50 AM CDT Informed pt that CT chest, abd, pelvis rescheduled for next 02/18/20 at 0830. Pt will then come to BMT clinic for appt and BMBx. documented in this encounter Plan of Treatment Upcoming Encounters Date Type Department Care Team (Late st Contact Info) Description 08/26/2024 11:00 AM FINANCE PROFESSOR Office Visit [facility] - Pulmonology [address] [place] [address], [place] [address] Andrew Francis MD [address] [place] [address] 2L DIV OF PULMONARY/[place] [address] documented as of this encounter Visit Diagnoses Not on filedocumented in this encounter Care Teams Starch Factory Laborer Relationship Specialty Start Date End Date Ran Nuñez MD [address] [place] [phone] PCP - General Family Medicine 03/22/19 12/22/20 Hillary Apple MD [address] [place] [address] Hematology and Oncology 03/17/19 Bill Ferrera MD [address] [place] [address] Hematology and Oncology 03/17/19 08/27/21 Tony Dumont MD [address] [place] [address] Hematology and Oncology 03/17/19 Maryjo Reinoso, [facility] Anesthesiology Crna 03/17/19 Madyson Clay, PharmD 03/17/19 Dana Lala, INTERSTATE PLANNER-SHIP RUNNER [address] [place] [address] 2nd [place] [address] Oncology 03/17/19 Tiffanie Nguyen, INTERSTATE PLANNER-CAR SEAT MAKER [address] [place], [place] [address]TA [facility] 2nd [place] [address] Family Medicine 03/17/19 Stephanie Mahoney, RN Registered Nurse 03/17/19 10/29/21 Alycia Galvan, ROSEMARY 03/17/19 10/29/21 Cesar Tavares MD [address] [place] [phone] Referring Physician Medical Oncology 03/23/19 Karie Jones, RN Registered Nurse 06/08/19 10/29/21 Joy Bob 09/22/19 Addison Shea, PharmD Pharmacist 09/22/19 10/29/21 documented as of this encounter
--- OUTSIDE RECORDS SUMMARY | 2024-08-18 00:30 | XMS_ITS | Encounter Summary ---
Author Organization [facility] Address [address] [facility] [place] [address] Care Team Providers Care Supervisor Contact And Service Clerks Name Role Phone Hillary Apple MD Unavailable [phone] Bill Ferrera MD Unavailable [phone] Tony Dumont MD Unavailable Maryjo Reinoso [facility] Unavailable Unavailable Madyson Clay PharmD Unavailable Unavaila Dana Galicia SIGNAL CONSTRUCTOR-CUSHION SPRING ASSEMBLER Unavailable [phone] Tiffanie Nguyen APRN-SYSTEMS CONSULTANT Unavailable [phone] Stephanie Mahoney RN Unavailable Unavailable Alycia Galvan RN Unavailable UnavailRan Mejía MD Primary Care Provider Cesar Tavares MD Unavailable [phone] Karie Jones RN Unavailable Unavailable Joy Bob Unavailable Fanta Addison Weinstein PharmD Unavailable Unavailab le Encounter Details Date Type Department Care Team (Late st Contact Info) Description 11/10/2019 Orders Only [facility] [address] [place] [address] Tiffanie Nguyen APRN-SYSTEMS CONSULTANT [address] [place] [address] Social History Tobacco Use Types Packs/Day Years [...] have Coronavirus / COVID-19? Unable to assess 11/04/2019 1:04 PM CDT documented as of this encounter [...] st Contact Info) Description 08/26/2024 11:00 AM OFFICE ENGINEER Office Visit [facility] - Pulmonology [address] [place] [address], [place] [address] Andrew Francis MD [address] [place] [address] 2L DIV OF PULMONARY/[place] [address] documented as of this encounter Visit Diagnoses Not on filedocumented in this encounter Care Teams Supervisor Contact And Service Clerks Relationship Specialty Start Date End Date Ran Nuñez MD [address] [place] [address] PCP - General Family Medicine 03/22/19 12/22/20 Hillary Apple MD [address] [place] [address] Hematology and Oncology 03/17/19 Bill Ferrera MD [facility] [place] [address] Hematology and Oncology 03/17/19 08/27/21 Tony Dumont MD [facility] [place] [address] Hematology and Oncology 03/17/19 Maryjo Reinoso, PLUMBING ENGINEERING DRAFTSPERSON Bait Painter 03/17/19 Madyson Clay, PharmD 03/17/19 Dana Lala, SIGNAL CONSTRUCTOR-CUSHION SPRING ASSEMBLER [facility] [facility] 2[place] [address] Oncology 03/17/19 Tiffanie Nguyen, SIGNAL CONSTRUCTOR-SYSTEMS CONSULTANT [address] [place] [address] 2nd [place] [address] Family Medicine 03/17/19 Stephanie Mahoney, RN Registered Nurse 03/17/19 10/29/21 Alycia Galvan, ROSEMARY 03/17/19 10/29/21 Cesar Tavares MD [address] [place] [address] [place] [address] Referring Physician Medical Oncology 03/23/19 Karie Jones, RN Registered Nurse 06/08/19 10/29/21 Joy Bob 09/22/19 Addison Shea, PharmD Pharmacist 09/22/19 10/29/21 documented as of this encounter
--- OUTSIDE RECORDS SUMMARY | 2024-08-18 00:30 | XMS_ITS | Encounter Summary ---
Author Organization [facility] Address [address] [facility] [place] [address] Care Team Providers Care Executive Manager Name Role Phone Hillary Apple MD Unavailable [phone] Bill Ferrera MD Unavailable [phone] Tony Dumont MD Unavailable [phone] Maryjo Reinoso [facility] Unavailable Unavailable Madyson Clay PharmD Unavailable Unavaila Dana Galicia PAYROLL BENEFITS CLERK-FACULTY RESEARCH ASSISTANT Unavailable [phone] Tiffanie Nguyen PAYROLL BENEFITS CLERK-JEWEL SORTER Unavailable [phone] Stephanie Mahoney RN Unavailable Unavailable Alycia Galvan RN Unavailable UnavailRan Mejía MD Primary Care Provider Cesar Tavares MD Unavailable [phone] Karie Jones RN Unavailable Unavailable Joy Bob Unavailable Fanta Addison Weinstein PharmD Unavailable Unavailab le Encounter Details Date Type Department Care Team (Late st Contact Info) Description 12/22/2019 Telephone [facility] [address] [place] [address] Karie Jones, RN Social History [...] Telephone Encounter - Karie Jones RN - 12/22/2019 10:41 AM CDT Called Aurelio and informed him that he was due for 2nd Minveo injection. Asked if would like to come and get it this week or next week. He asked to just have it added on to his appointment in January. documented in this encounter Plan of Treatment Upcoming Encounters Date Type Department Care Team (Late st Contact Info) Description 08/26/2024 11:00 AM ASSISTANT PROFESSOR OF RELIGION Office Visit [facility] - Pulmonology [address] [place] [address], [place] [address] Andrew Francis MD [address] [place] [address] DIV OF PULMONARY/[place] [address] documented as of this encounter Visit Diagnoses Not on filedocumented in this encounter Care Teams Executive Manager Relationship Specialty Start Date End Date Ran Nuñez MD [address] [place] [address] PCP - General Family Medicine 03/22/19 12/22/20 Hillary Apple MD [address] [place] [address] Hematology and Oncology 03/17/19 Bill Ferrera MD [address] [place] [address] Hematology and Oncology 03/17/19 08/27/21 Tony Dumont MD [address] [place] [address] Hematology and Oncology 03/17/19 Maryjo Reinoso, CHILD CARE SUPERVISOR Paving Supervisor 03/17/19 Madyson Clay, PharmD 03/17/19 Dana Lala, PAYROLL BENEFITS CLERK-FACULTY RESEARCH ASSISTANT [address] [place] [address] [address] [address] Oncology 03/17/19 Tiffanie Nguyen, PAYROLL BENEFITS CLERK-JEWEL SORTER [address] [place] [address] [place] [address] Family Medicine 03/17/19 Stephanie Mahoney, RN Registered Nurse 03/17/19 10/29/21 Alycia Galvan, ROSEMARY 03/17/19 10/29/21 Cesar Tavares MD [address] [place] [address] [place] [address] Referring Physician Medical Oncology 03/23/19 Karie Jones, RN Registered Nurse 06/08/19 10/29/21 Joy Bob 09/22/19 Addison Shea, PharmD Pharmacist 09/22/19 10/29/21 documented as of this encounter
--- OUTSIDE RECORDS SUMMARY | 2024-08-18 00:30 | XMS_ITS | Encounter Summary ---
Author Organization [facility] Address [address] [place] [address] Care Team Providers Care Policewoman Name Role Phone Hillary Apple MD Unavailable [phone] Bill Ferrera MD Unavailable [phone] Tony Dumont MD Unavailable [phone] Maryjo ReinosoW Unavailable Unavailable Madyson Clay PharmD Unavailable Unavaila Dana Galicia NETWORK OPERATIONS PROJECT MANAGER-RAILROAD BRAKEMAN Unavailable [phone] Tiffanie Nguyen NETWORK OPERATIONS PROJECT MANAGER-MAT REPAIRER Unavailable [phone] Stephanie Mahoney RN Unavailable Unavailable Alycia Galvan RN Unavailable UnavailRan Mejía MD Primary Care Provider Cesar Tavares MD Unavailable [phone] Karie Jones RN Unavailable Unavailable Joy Bob Unavailable Fanta Addison Weinstein PharmD Unavailable Unavailab le Reason for Referral * Radiology Services (Routine) - Closed Specialty Diagnoses / Procedures Referred By Contjohn t Referred To Contact Interventional Radiology Diagnoses Diffuse large B-cell lymphoma, unspecified body region (HCC) Procedures IR CENTRAL LINE REMOVAL Rafaela Sood APRN-MAT REPAIRER [address] [place] [address] [facility] [address] [place] [address] Referral ID Status Reason Start Date Expiration Date Visits Re quested Visits Authorized [id number] Closed 11/11/2019 05/09/2020 1 1 Reason for Visit * Oncology Prior Authorization (Routine) - Closed Specialty Diagnoses / Procedures Referred By Deng t Referred To Contact Diagnoses Diffuse large B-cell lymphoma, unspecified body region (HCC) Procedures [place] ALTEPLASE RECOMBINANT Tiffanie Nguyen APRN-CNP [address] [place] [address] [facility] [address] [place] [address] Referral ID Status Reason Start Date Expiration Date Visits Re quested Visits Authorized [id number] Closed 05/24/2019 11/20/2019 1 1 Encounter Details Date Type Department Care Team (Late st Contact Info) Description 11/04/2019 8:43 AM CDT - 11/04/2019 11:59 PM CDT Hospital Encounter [facility] [address] [place] [address] Hillary Apple MD [address] [facility] HEMATOLOGY [place] [address] Tiffanie Nguyen APRN-CNP [address] [place] [address] Discharge Disposition: Home or Self [...] Sign Reading Time Taken Comments Blood Pressure 107/83 11/04/2019 8:50 AM CDT Pulse 114 11/04/2019 8:50 AM CDT Temperature 37.4 ??C (99.4 ??F) 11/04/2019 8:50 AM CD T Respiratory Rate 18 11/04/2019 8:50 AM CDT Oxygen Saturation 99% 11/04/2019 8:50 AM CDT Inhaled Oxygen Concentration - - Weight 120.2 kg (265 lb 0.5 oz) 11/04/2019 8:50 AM CDT Height - - Body Mass Index 40.9 10/13/2019 3:13 PM CDT documented in this encounter Functional [...] No 10/13/2019 documented as of this encounter Medications at Time of Discharge Medication Sig Dispensed Refills Start Date End Date multivitamin daily tablet Take 1 (one) tablet by mouth daily with food acyclovir (ZOVIRAX) 400 MG tablet Take 1 tablet by mouth 2 times daily 60 tablet 11 05/24/2019 11/10/2019 apixaban (ELIQUIS) 5 MG tablet TAKE 10MG BY MOUTH TWICE DAILY FOR 7 DAYS. THEN, 5MG TABLET TWICE DAILY THEREAFTER DIRECTED. 09/27/2019 06/16/2020 apixaban (ELIQUIS) 5 MG tablet Take 5 mg by mouth 2 times daily 11/10/2019 escitalopram (LEXAPRO) 10 MG tablet Take 1 tablet by mouth once daily 30 tablet 06/28/2019 07/03/2020 ondansetron, disintegrating, (ZOFRAN ODT) 8 MG tablet Dissolve 1 tablet on top of tongue then swallow with saliva every 8 hours as needed for nausea or vomiting 04/19/2019 12/20/2021 oxyCODONE, immediate release, (ROXICODONE) 5 MG tablet Take 1 tablet by mouth every 6 hours as needed for Pain 30 tablet 10/29/2019 04/05/2020 penicillin v potassium (VEETIDS) 250 MG tablet Take 1 tablet by mouth 2 times daily 60 tablet 5 08/11/2019 03/13/2021 prochlorperazine (COMPAZINE) 10 MG tablet Take 10 mg by mouth every 6 hours as needed 04/27/2019 12/20/2021 rOPINIRole (REQUIP) 0.25 MG tablet Take 0.25 mg by mouth 10/29/201906/04 rOPINIRole (REQUIP) 0.25 MG tabletIndications:Rest less Leg Syndrome Take 1 tablet by mouth at bedtime Reasons: Restless Leg Syndrome 90 tablet 3 10/29/2019 01/02/2021 sulfamethoxazole-trime thoprim (BACTRIM DS; SEPTRA DS) 800-160 MG tablet Take 1 tablet by mouth 11/01/2019 06/16/2020 sulfamethoxazole-trime thoprim (BACTRIM DS; SEPTRA DS) 800-160 MG tabletIndications:PJP prophylaxis s/p stem cell transplant Take 1 tablet by mouth every Friday, Friday & Friday Reasons: PJP prophylaxis s/p stem cell transplant 12 tablet 3 11/01/2019 01/02/2021 documented as of this encounter Progress Notes * Rafaela Sood, NETWORK OPERATIONS PROJECT MANAGER-MAT REPAIRER - 11/04/2019 9:15 AM CDT Autologous Hematopoietic Stem Cell Daily Note: PATIENT IDENTIFIERS: MARCELLO LUIS is a 49 year old male who is Day +15 (Day 0 is 10/20/19) of an autologous peripheral blood stem cell transplant with a 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 INTERVAL HISTORY: Doing well this morning Denies N/V/D/F/C Denies SOB, cough, feeling dizzy or lightheaded Eating and drinking well, food/drink still does not taste the same though Adjusting to his dentures, no pain or discomfort with them Reports staying inside and not going out and about ROS: A comprehensive review of systems was negative except for: as noted above MEDICATIONS FOR CURRENT ENCOUNTER: Current Outpatient Medications Medication Sig ??? acyclovir (ZOVIRAX) 400 MG tablet Take 1 tablet by mouth 2 times daily (Patient taking differently: Take 800 mg by mouth 2 times daily ) ??? escitalopram (LEXAPRO) 10 MG tablet Take 1 tablet by mouth once daily ??? multivitamin daily tablet Take 1 tablet by mouth daily with food ??? ondansetron, disintegrating, (ZOFRAN ODT) 8 MG tablet Dissolve 1 tablet on top of tongue then swallow with saliva every 8 hours as needed for nausea or vomiting ??? oxyCODONE, immediate release, (ROXICODONE) 5 MG tablet Take 1 tablet by mouth every 6 hours as needed for Pain ??? penicillin v potassium (VEETIDS) 250 MG tablet Take 1 tablet by mouth 2 times daily ??? prochlorperazine (COMPAZINE) 10 MG tablet Take 10 mg by mouth every 6 hours as needed ??? rOPINIRole (REQUIP) 0.25 MG tablet Take 1 tablet by mouth at bedtime Reasons: Restless Leg Syndrome ??? sulfamethoxazole-trimethoprim (BACTRIM DS; SEPTRA DS) 800-160 MG tablet Take 1 tablet by mouth every Friday, Friday & Friday Reasons: PJP prophylaxis s/p stem cell transplant Current Facility-Administered Medications Medication ??? heparin lock flush injection 500 Units VITALS: There were no vitals filed for this visit. Wt Readings from Last 3 Encounters: 11/01/19 121.9 kg (268 lb 11.2 oz) 10/30/19 121.7 kg (268 lb 4.8 oz) 10/29/19 120.5 kg (265 lb 9.6 oz) PHYSICAL EXAM: Karnofsky/Eco/1 General appearance - alert, well appearing, and [...] no rashes, no suspicious skin lesions noted Gunnar Altamirano- No drainage, no erythema, dressing CDI LABS: Recent Labs Component Name 11/01/19 0909 10/30/19 1115 10/29/19 0002 10/28/19 0000 10/27/19 0007 10/24/19 0015 10/19/19 0021 10/17/19 2343 10/17/19 0020 WBC 8.4 10.0 1.5* 0.5* - 0.2* - 0.3* - 5.5 6.4 9.2 RBC 3.46* 3.46* 3.37* 3.42* - 3.50* - 3.57* - 3.63* 3.52* 3.38* HGB 9.8* 9.9* 9.7* 9.8* - 10.1* - 10.3* - 10.4* 10.2* 9.7* HCT 29.3* 29.1* 28.3* 28.4* - 29.1* - 30.4* - 31.3* 30.9* 29.9* MCV 84.7 84.1 84.0 83.0 - 83.1 - 85.2 - 86.2 87.8 88.5 MCH 28.3 28.6 28.8 28.7 - 28.9 - 28.9 - 28.7 29.0 28.7 MCHC 33.4 34.0 34.3 34.5 - 34.7 - 33.9 - 33.2 33.0 32.4 PLTCOUNT 105* 45* 25* 33* - 3* - 75* - 295 321 312 RDWSD 49.8 47.0 46.0 47.0 - 46.8 - 49.1 - 49.9 50.8* 51.3* RDW 16.4* 15.5* 15.1* 15.3* - 15.4* - 15.5* - 15.7* 15.9* 15.9* MPV 11.7 - - 8.9* - - - 11.7 - 10.3 10.9 10.2 NRBCABS 2.73* 2.23* 0.43* 0.03* - 0.00 - 0.00 - 0.00 0.00 0.00 NRBCAUTOPCT 32.6* 22.3* 29.5* 6.5* - 0.0 - 0.0 - 0.0 0.0 0.0 NEUTPCT - - - - - - - - - 96.5* 93.4* 90.0* LYMPHSPCT - - - - - - - - - 2.4* 3.9* 3.9* MONOPCT - - - - - - - - - 0.4* 2.2* 5.3 EOSPCT - - 1 1 - 2 - 12* - 0.0 0.0 0.0 BASOPCT - - - - - - - - - 0.0 0.0 0.0 IMMGRANSPCT - - - - - - - - - 0.7 0.5 0.8 NEUTABS 3.78 5.60 0.60* 0.02* - 0.01* - 0.01* - 5.3 6.0 8.3* LYMPHS 1.09 1.30 0.39* 0.33* - 0.18* - 0.25* - 0.1* 0.3* 0.4* MONO 2.18* 1.90* 0.45 0.16 - 0.01* - - - 0.02* 0.14 0.49 EOS - - 0.02 0.01 - 0.00 - 0.04 - 0.00 0.00 0.00 BASO 0.08* - - - - - - - - 0.00 0.00 0.00 TOTCELLCNT 100 100 100 100 - 100 - 100 - - - - - = values in this interval not displayed. Recent Labs Component Name 11/01/19 0909 10/30/19 1115 10/29/19 0002 BUN 8 13 11 CREATININE 0.8 0.9 1.0 NA 140 140 138 POTASSIUM 4.1 3.9 4.1 CL 104 103 101 CO2 27 25 25 CALCIUM 9.4 9.6 9.1 PROT 6.3 6.4 6.0 ALB 3.2* 3.1* 2.9* TBILI 0.3 0.1* 0.1* ALKPHOS 124 119 102 ALT 47 48 43 AST 25 27 14 ANIONGAP 13 16 16 BCR 10 14 11 OSMOLALITY 288 291 285 AGRATIO 1.0* 0.9* 0.9* EGFR >60 >60 >60 Recent Labs Component Name 11/01/19 0909 10/30/19 1115 10/29/19 0002 MAGNESIUM 1.8 1.8 1.8 Recent Labs Component Name 11/01/19 0909 10/30/19 1115 10/29/19 0002 PHOS 2.9 3.0 3.5 Routine Monitoring: CMV (weekly starting day 0): 10/25/19 - ND; 11/01/19 ND ASSESSMENT/PLAN: MARCELLO LUIS is a 49 year old male, who is Day +15 (Day 0 is 10/20/19) of an autologous peripheral blood stem cell transplant with a 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 SYSTEMS: Marginal Zone Lymphoma in CR2 pre-transplant Schema: 5A Prep: BEAM, Cell count 10.4 x 10^6 CD34+cells/kg in 5 bags; Planned disease evaluation: day [address], will discuss if needs bone marrow as well. Planned post transplant therapy: none planned at this time -maintain on PCN VK vs Levaquin post-splenectomy until he can be re-vaccinated and adequate titers demonstrated Pancytopenia 2/2 Transplant Prep CMV +, transfusion pre meds: none needed Transfusion threshold: Hgb > 7; Plt > 10 Engraftment: ANC day +9 (10/29/19) >plt engraftment 11/03/19 (day +14; last platelet transfusion day +7--10/27/19) OI prophylaxis: Bacterial:??Pen[facility]K [facility] due to splenectomy PJP:??Bactrim DS MWF Viral: ACV 800 mg BID Back pain -likely 2/2 growth factor as he had similar back pain with collection -nearly resolved -oxy PRN Anxiety/Depression - Lexapro 10 mg daily Restless Leg Syndrome - Requip 0.25 mg QHS Right IJ venous clot 09/27/19 - Eliquis 5 mg BID Discharge Planning: Patients preferred contact information: cell Caregiver: sister, girlfriend Preferred D/C Pharmacy: [facility] Intended lodging: home Referring provider: Cesar Tavares Disposition: RTC 11/10 for MIGUEL visit with basic labs and CVC removal Eli JOSE DAVID Sood, ELECTRON GUN INSPECTOR-C Bone Marrow Transplant [facility] [employer] documented in this encounter Plan of Treatment Upcoming Encounters Date Type Department Care Team (Late st Contact Info) Description 08/26/2024 11:00 AM ELECTRONICS TECHNOLOGY DEPARTMENT CHAIR Office Visit [facility] - Pulmonology [address] [facility], [place] [address] Andrew Francis MD [facility] [facility] 2L DIV OF PULMONARY/[place] [address] Scheduled Orders Name Type Priority Associated Diagnoses Orde r Schedule IR CENTRAL LINE REMOVAL Imaging Routine Diffuse large B-cell lymphoma, unspecified body region (HCC) Expected: 11/11/2019, Expires: 11/03/2020 documented as of this encounter Procedures Procedure Name Priority Date/Time Associated Diagnosis Comments DIFFERENTIAL MANUAL STAT 11/04/2019 8 :58 AM CDT Diffuse large B-cell lymphoma, unspecified body region (HCC) CBC W AUTO DIFFERENTIAL STAT 11/04/2019 8:58 AM CDT Diffuse large B-cell lymphoma, unspecified body region (HCC) COMPREHENSIVE METABOLIC PANEL STAT 11/04/2019 8:58 AM CDT Diffuse large B-cell lymphoma, unspecified body region (HCC) PHOSPHORUS BLOOD STAT 11/04/2019 8:58 AM CDT Diffuse large B-cell lymphoma, unspecified body region (HCC) MAGNESIUM BLOOD STAT 11/04/2019 8:58 AM CDT Diffuse large B-cell lymphoma, unspecified body region (HCC) documented in this encounter Results * (ABNORMAL) DIFFERENTIAL MANUAL (11/04/2019 8:58 AM CDT) WBC (corrected for NRBC) 8.1 10? 3 /uL 11/04/2019 10:26 AM CDT [facility] Total Cell Count 100 11/04/19 20 10:26 AM [facility] Neutrophils Absolute Manual 4.37 1.60 - 7.00 10? 3 /uL 11/04/2019 10:26 AM [facility] Comment:(BANDS+SEGS) x WBC = NEUT # (ANC) Lymphocyte Absolute Manual 1.38 0.80 - 2.90 10? 3 /uL 11/04/2019 10:26 AM [facility] Monocytes Absolute Manual 2.03(H) 0.14 - 0.66 10? 3 /uL 11/04/2019 10:26 AM [facility] Basophil Absolute Manual 0.08(H) 0.00 - 0.06 10? 3 /uL 11/04/2019 10:26 AM [facility] Band % Manual 4 0 - 10 % 11/04/2019 10:26 AM [facility] Neutrophil % Manual 50 30 - 60 % 11/04/2019 10:26 AM [facility] Lymphocyte % Manual 17(L) 20 - 45 % 11/04/2019 10:26 AM [facility] Monocytes % Manual 25(H) 2 - 10 % 11/04/2019 10:26 AM [facility] Basophils % Manual 1 0 - 3 % 11/04/2019 10:26 AM [facility] Atypical Lymphocyte % Manual 1(H) 0 % 11/04/2019 10:26 AM [facility] Metamyelocyte % Manual 2(H) 0 % 11/04/2019 10:26 AM [facility] Platelet Estimate Adequate Adequate 020 10:26 AM [facility] Anisocytosis 1+(A) None 11/04/2019 10:26 AM [facility] Hypochromia 1+(A) None 11/04/2019 10:26 AM [facility] Polychromasia Few(A) None 11/04/2019 10:26 AM [facility] Target Cells Few(A) None 11/04/2019 10:26 AM [facility] Blood BLOOD SPECIMEN / Unknown Venipuncture / Unknown 11/04/2019 8:58 AM CDT 11/04/2019 9:06 AM CDT Tiffanie Nguyen [facility] - HEMATOLOG Y ORDERABLES Performing Organization Address [facility]/State/ZIP Co de Phone Number [address] [phone] * PHOSPHORUS BLOOD (11/04/2019 8:58 AM CDT) Phosphorus 2.5 2.3 - 4.7 mg/dL 11/04/2019 9:31 AM CDT [facility] Blood BLOOD SPECIMEN / Unknown Venipuncture / Unknown 11/04/2019 8:58 AM CDT 11/04/2019 9:07 AM CDT Tiffanie Nguyen [facility] - CHEMISTRY ORDERABLES Performing Organization Address [facility]/ZIP Co de Phone Number [address] [phone] * MAGNESIUM BLOOD (11/04/2019 8:58 AM CDT) Magnesium 1.9 1.6 - 2.6 mg/dL 11/04/2019 9:31 AM CDT [facility] Blood BLOOD SPECIMEN / Unknown Venipuncture / Unknown 11/04/2019 8:58 AM CDT 11/04/2019 9:07 AM CDT Tiffanie Nguyen [facility] - CHEMISTRY ORDERABLES Performing Organization Address [facility]/ZIP Co de Phone Number [address] [phone] * (ABNORMAL) CBC W AUTO DIFFERENTIAL (11/04/2019 8:58 AM CDT) WBC 8.1 3.5 - 10.5 10? 3 /uL 11/04/2019 9:19 AM CDT [facility] Comment:The WBC count is cor rected by the instrument for nRBC's RBC 3.92(L) 4.30 - 5.70 10? 6 /uL 11/04/2019 9:19 AM CDT [facility] Hemoglobin 11.2(L) 13.5 - 17.5 g/dL 11/04/2019 9:19 AM [facility] Hematocrit 33.6(L) 39.0 - 50.0 % 11/04/2019 9:19 AM [facility] MCV 85.7 81.0 - 97.0 fL 11/04/2019 9:19 AM [facility] MCH 28.6 28.0 - 34.0 pg 11/04/2019 9:19 AM [facility] MCHC 33.3 32.0 - 36.0 g/dL 11/04/2019 9:19 AM [facility] Platelet Count 309 150 - 400 10? 3 /uL 11/04/2019 9:19 AM [facility] Comment:Confirmed by repeat analysis. RDW-SD 50.7(H) 36.0 - 50.0 fL 11/04/2019 9:19 AM [facility] RDW-CV 17.8(H) 11.2 - 14.8 % 11/04/2019 9:19 AM [facility] MPV 11.2 9.3 - 12.8 fL 11/04/2019 9:19 AM [facility] nRBC Absolute 3.04(H) 0 10? 3 /uL 11/04/2019 9:19 AM [facility] nRBC Auto 37.4(H) 0 /100 WBC 11/04/2019 9:19 AM [facility] Blood BLOOD SPECIMEN / Unknown Venipuncture / Unknown 11/04/2019 8:58 AM CDT 11/04/2019 9:06 AM CDT Tiffanie Nguyen NETWORK OPERATIONS PROJECT MANAGER-MAT REPAIRER LAB - HEMATOLOG Y ORDERABLES [address] [phone] * (ABNORMAL) COMPREHENSIVE METABOLIC PANEL (11/04/2019 8:58 AM CDT) BUN 9 7 - 26 mg/dL 11/04/2019 9:31 AM [facility] Creatinine 0.9 0.6 - 1.2 mg/dL 11/04/2019 9:31 AM [facility] Sodium 141 136 - 145 mmol/L 11/04/2019 9:31 AM [facility] Potassium 4.4 3.5 - 4.5 mmol/L 11/04/2019 9:31 AM [facility] Chloride 106 98 - 107 mmol/L 11/04/2019 9:31 AM [facility] CO2 25 22 - 29 mmol/L 11/04/2019 9:31 AM [facility] Glucose 100 70 - 115 mg/dL 11/04/2019 9:31 AM [facility] Calcium 9.5 8.4 - 10.2 mg/dL 11/04/2019 9:31 AM [facility] Protein Total 6.5 6.0 - 8.3 g/dL 11/04/2019 9:31 AM [facility] Albumin 3.3(L) 3.4 - 5.0 g/dL 11/04/2019 9:31 AM [facility] Bilirubin Total 0.1(L) 0.2 - 1.2 mg/dL 11/04/2019 9:31 AM [facility] Alkaline Phosphatase 128 40 - 150 Units/L 11/04/2019 9:31 AM [facility] ALT 42 0 - 55 Units/L 11/04/2019 9:31 AM [facility] AST 26 5 - 34 Units/L 11/04/2019 9:31 AM [facility] Anion Gap 14 8 - 18 11/04/2019 9:31 AM [facility] BUN/Creatinine Ratio 10 7 - 23 11/04/2019 9:31 AM [facility] Osmolality Calculated 291 270 - 300 mOsm/kg 11/04/2019 9:31 AM [facility] Albumin/Globulin Ratio 1.0(L) 1.1 - 2.3 11/04/2019 9:31 AM [facility] eGFR >60 >60 mL/min/1.7 3 m2 11/04/2019 9:31 AM [facility] Blood BLOOD SPECIMEN / Unknown Venipuncture / Unknown 11/04/2019 8:58 AM T 11/04/2019 9:07 AM CDT Tiffanie Nguyen NETWORK OPERATIONS PROJECT MANAGER-MAT REPAIRER LAB - CHEMISTRY ORDERABLES [facility] [address] [place] [address], [facility] [phone] documented in this encounter Visit Diagnoses Diagnosis Diffuse large B-cell lymphoma, unspecified body region (HCC)- Primary 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 Other pancytopenia (HCC) Other pancytopenia Back pain, unspecified back location, unspecified back pain laterality, unspecified chronicity documented in this encounter Administered Medications Inactive Administered Medications - up to 3 most recent administrations Medication Order MAR Action Action Date Dose Rate Site heparin lock flush injection 500 Units 500 Units, Intracatheter, PRN, Other, Site maintenance, Starting on Ofelia 11/04/19 at 0758, Until Ofelia 11/04/19 at 1957 $ Given 11/04/2019 9:55 AM CDT 500 Units $ Given 11/04/2019 9:20 AM CDT 500 Units $ Given 11/04/2019 9:19 AM CDT 500 Units documented in this encounter Care Teams Policewoman Relationship Specialty Start Date End Date Ran Nuñez MD [address] [place] [address] PCP - General Family Medicine 03/22/19 12/22/20 Hillary Apple MD [facility] [place] [address] Hematology and Oncology 03/17/19 Bill Ferrera MD [address] [place] [address] Hematology and Oncology 03/17/19 08/27/21 Tony Dumont MD [address] [place] [address] Hematology and Oncology 03/17/19 Maryjo Reinoso LCSW Financial Institution Branch Manager 03/17/19 Madyson Clay, PharmD 03/17/19 Dana Lala, NETWORK OPERATIONS PROJECT MANAGER-RAILROAD BRAKEMAN [address] [place] [address] Oncology 03/17/19 Tiffanie Nguyen, NETWORK OPERATIONS PROJECT MANAGER-MAT REPAIRER [address] [address] Family Medicine 03/17/19 Stephanie Mahoney, RN Registered Nurse 03/17/19 10/29/21 Alycia Galvan, ROSEMARY 03/17/19 10/29/21 Cesar Tavares MD [address] [place] [address] Referring Physician Medical Oncology 03/23/19 Karie Jones, RN Registered Nurse 06/08/19 10/29/21 Joy Bob 09/22/19 Addison Shea, PharmD Pharmacist 09/22/19 10/29/21 documented as of this encounter
--- OUTSIDE RECORDS SUMMARY | 2024-08-18 00:30 | XMS_ITS | Encounter Summary ---
Author Organization [facility] Address [address] [facility] [place] [address] Care Team Providers Care Team Guide Name Role Phone Hillary Apple MD Unavailable [phone] Bill Ferrera MD Unavailable [phone] Tony Dumont MD Unavailable [phone] Maryjo Reinoso [facility] Unavailable Unavailable Madyson Clay PharmD Unavailable Unavaila Dana Galicia GLEASON GEAR GENERATOR-PANEL CUTTER Unavailable [phone] Tiffanie Nguyen APRN-LACQUER DIPPING MACHINE OPERATOR Unavailable [phone] Stephanie Mahoney RN Unavailable Unavailable Alycia Galvan RN Unavailable UnavailRan Mejía MD Primary Care Provider Cesar Tavares MD Unavailable [phone] Karie Jones RN Unavailable Unavailable Joy Bob Unavailable Fanta Addison Weinstein PharmD Unavailable Unavailab le Encounter Details Date Type Department Care Team (Late st Contact Info) Description 11/10/2019 Orders Only [facility] [address] [place] [address] Tiffanie Nguyen APRN-LACQUER DIPPING MACHINE OPERATOR [address] [place] [address] Social History Tobacco Use Types Packs/Day Years [...] st Contact Info) Description 08/26/2024 11:00 AM MUSEUM LIBRARIAN Office Visit [facility] - Pulmonology [address] [place] [address], [place] [address] Andrew Francis MD [address] [place] [address] 2L DIV OF PULMONARY/[place] [address] documented as of this encounter Visit Diagnoses Not on filedocumented in this encounter Care Teams Team Guide Relationship Specialty Start Date End Date Ran Nuñez MD [address] [place] [address] PCP - General Family Medicine 03/22/19 12/22/20 Hillary Apple MD [address] [place] [address] Hematology and Oncology 03/17/19 Bill Ferrera MD [facility] [place] [address] Hematology and Oncology 03/17/19 08/27/21 Tony Dumont MD [facility] [place] [address] Hematology and Oncology 03/17/19 Maryjo Reinoso, ACTIVITY THERAPY SPECIALIST Medical Center Director 03/17/19 Madyson Clay, PharmD 03/17/19 Dana Lala, GLEASON GEAR GENERATOR-PANEL CUTTER [facility] [facility] 2nd [place] [address] Oncology 03/17/19 Tiffanie Nguyen, GLEASON GEAR GENERATOR-LACQUER DIPPING MACHINE OPERATOR [address] [place] [address] [address]nd [place] [address] Family Medicine 03/17/19 Stephanie Mahoney, RN Registered Nurse 03/17/19 10/29/21 Alycia Galvan, ROSEMARY 03/17/19 10/29/21 Cesar Tavares MD [address] [place] [address] [place] [address] Referring Physician Medical Oncology 03/23/19 Karie Jones, RN Registered Nurse 06/08/19 10/29/21 Joy Bob 09/22/19 Addison Shea, PharmD Pharmacist 09/22/19 10/29/21 documented as of this encounter
--- OUTSIDE RECORDS SUMMARY | 2024-08-18 00:30 | XMS_ITS | Encounter Summary ---
Author Organization [facility] Address [address] [facility] [place] [address] Care Team Providers Care Machinist General Name Role Phone Hillary Apple MD Unavailable [phone] Bill Ferrera MD Unavailable [phone] Tony Dumont MD Unavailable [phone] Maryjo ReinosoW Unavailable Unavailable Madyson Clay PharmD Unavailable Unavaila Dana Galicia GYPSUM CALCINER-CLASSROOM INSTRUCTOR Unavailable [phone] Tiffanie Nguyen GYPSUM CALCINER-PATTERN KEEPER Unavailable Stephanie Mahoney RN Unavailable Unavailable Alycia Galvan RN Unavailable UnavailRan Mejía MD Primary Care Provider Cesar Tavares MD Unavailable [phone] Kraie Jones RN Unavailable Unavailable Joy Bob Unavailable Fanta Addison Weinstein PharmD Unavailable Unavailab le Encounter Details Date Type Department Care Team (Latest Contact Info) Description 01/27/2020 Travel Social History Tobacco Use Types Packs/Day [...] have Coronavirus / COVID-19? Unable to assess 01/27/2020 1:41 PM CDT documented as of this encounter [...] Info) Description 08/26/2024 11:00 AM DIRECTOR OF DATABASE MARKETING Office Visit [facility] - Pulmonology [address] [place] [address], [place] [address] Andrew Francis MD [address] [place] [address] 2L DIV OF PULMONARY/[place] [address] documented as of this encounter Visit Diagnoses Not on filedocumented in this encounter Care Teams Machinist General Relationship Specialty Start Date End Date Ran Nuñez MD [address] [place] [address] PCP - General Family Medicine 03/22/19 12/22/20 [place] [address] [place] [address] Hematology and Oncology 03/17/19 [place] [address] [place] [address] Hematology and Oncology 03/17/19 08/27/21 Tony Dumont MD [address] [place] [address] Hematology and Oncology 03/17/19 Maryjo Reinoso, PULMONARY PHYSICAL THERAPIST Foundry Helper 03/17/19 Madyson Clay, PharmD 03/17/19 Dana Lala, GYPSUM CALCINER-CLASSROOM INSTRUCTOR [address] [facility] 2nd [place] [address] Oncology 03/17/19 Tiffanie Nguyen, GYPSUM CALCINER-PATTERN KEEPER [address] [place] [address] Family Medicine 03/17/19 Stephanie Mahoney, RN Registered Nurse 03/17/19 10/29/21 Alycia Galvan, ROSEMARY 03/17/19 10/29/21 Cesar Tavares MD [address] [place] [address] Referring Physician Medical Oncology 03/23/19 Karie Jones, RN Registered Nurse 06/08/19 10/29/21 Joy Bob 09/22/19 Addison Shea, PharmD Pharmacist 09/22/19 10/29/21 documented as of this encounter
--- OUTSIDE RECORDS SUMMARY | 2024-08-18 00:30 | XMS_ITS | Encounter Summary ---
Author Organization [facility] Address [address] [facility] [place] [address] Care Team Providers Care News Videotape Editor Name Role Phone Hillary Apple MD Unavailable [phone] Bill Ferrera MD Unavailable [phone] Tony Dumont MD Unavailable [phone] Maryjo Reinoso [facility] Unavailable Unavailable Madyson Clay PharmD Unavailable Unavaila Dana Galicia TOLL BRIDGE ATTENDANT-DIRECTOR OF MARKETING OPERATIONS Unavailable [phone] Tiffanie Nguyen APRN-PRIVACY DIRECTOR Unavailable [phone] Stephanie Mahoney RN Unavailable Unavailable Alycia Galvan RN Unavailable UnavailRan Mejía MD Primary Care Provider Cesar Tavares MD Unavailable [phone] Karie Jones RN Unavailable Unavailable Joy Bob Unavailable Fanta Addison Weinstein PharmD Unavailable Unavailab le Encounter Details Date Type Department Care Team (Latest Contact Info) Description 11/11/2019 12:15 PM CDT - 11/11/2019 1:45 PM CDT Hospital Encounter [facility] BMT CLINIC [address] [place] [address] Bill Ferrera MD [address] [place] [address] Tiffanie Nguyen TOLL BRIDGE ATTENDANT-PRIVACY DIRECTOR [address] [place] [address] Discharge Disposition: Home or Self Care Social [...] Sign Reading Time Taken Comments Blood Pressure 136/86 11/11/2019 12:24 PM CDT Pulse 97 11/11/2019 12:24 PM CDT Temperature 36.8 ??C (98.2 ??F) 11/11/2019 1 2:24 PM CDT Respiratory Rate 18 11/11/2019 12:2 4 PM CDT Oxygen Saturation 100% 11/11/2019 12: 24 PM CDT Inhaled Oxygen Concentration - - Weight 121.6 kg (268 lb 0.3 oz) 020 12:24 PM CDT Height - - Body Mass Index 41.36 10/13/2019 3:13 PM CDT documented in this [...] TK 1 T PO BID PRF PAIN 11/08/2019 04/05/2020 escitalopram (LEXAPRO) 10 MG tablet Take 1 [...] by mouth 10/29/201906/04 rOPINIRole (REQUIP) 0.25 MG tabletIndications:Res tless Leg Syndrome Take 1 tablet by mouth at bedtime Reasons: Restless Leg Syndrome 90 tablet 3 10/29/2019 01/02/2021 sulfamethoxazole-trim ethoprim (BACTRIM DS; SEPTRA DS) 800-160 MG tablet Take 1 tablet by mouth 11/01/2019 06/16/2020 sulfamethoxazole-trim ethoprim (BACTRIM DS; SEPTRA DS) 800-160 MG tabletIndications:PJP prophylaxis s/p stem cell transplant Take 1 tablet by mouth every Friday, Friday & Friday Reasons: PJP prophylaxis s/p stem cell transplant 12 tablet 3 11/01/2019 01/02/2021 documented as of this encounter Progress Notes * Tiffanie Nguyen, TOLL BRIDGE ATTENDANT-PRIVACY DIRECTOR - 11/11/2019 12:30 PM CDT Autologous Hematopoietic Stem Cell Daily Note: PATIENT IDENTIFIERS: MARCELLO LUIS is a 49 year old male who is Day +22 (Day 0 is 10/20/19) of an autologous peripheral blood stem cell transplant with a 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 INTERVAL HISTORY: Aurelio presents to clinic ambulatory No F/C/N/V/D. Taste buds altered still, but feels hungry all the time. Drinking well, drinking at least 3L per day Excited to have CVC out today, didn't take Eliquis this morning No SOB or chest pain. No cough Continues to feel weak, working on building up strength, doing exercises and walking the steps at home. Getting stronger No lightheadedness or dizziness ROS: A comprehensive review of systems was negative except for: as noted above MEDICATIONS FOR CURRENT ENCOUNTER: Current Outpatient Medications Medication Sig ??? acyclovir (ZOVIRAX) 400 MG tablet Take 2 tablets by mouth 2 times daily ??? apixaban (ELIQUIS) 5 MG tablet Take 1 tablet by mouth 2 times daily ??? escitalopram (LEXAPRO) 10 MG tablet Take [...] lock flush injection 500 Units VITALS: Vitals: 11/11/19 1224 BP: 136/86 Pulse: 97 Resp: 18 Temp: 98.2 ??F SpO2: 100% Weight: 121.6 kg (268 lb 0.3 oz) Wt Readings from Last 3 Encounters: 11/11/19 121.6 kg (268 lb 0.3 oz) 11/04/19 120.2 kg (265 lb 0.5 oz) 11/01/19 121.9 kg (268 lb 11.2 oz) PHYSICAL EXAM: Karnofsky/Eco/1 Physical Examination: General appearance - alert, well [...] no rashes, no suspicious skin lesions noted CVC: tunneled CVC dressing is dry and intact without redness, swelling, or stated tenderness -- to be removed after visit LABS: Recent Labs Component Name 11/11/19 1231 11/04/19 0858 11/01/19 0909 10/29/19 0002 10/28/19 0000 10/19/19 0021 10/17/19 2343 WBC 6.7 8.1 8.4 - 1.5* 0.5* - 5.5 6.4 RBC 4.02* 3.92* 3.46* - 3.37* 3.42* - 3.63* 3.52* HGB 11.5* 11.2* 9.8* - 9.7* 9.8* - 10.4* 10.2* HCT 35.1* 33.6* 29.3* - 28.3* 28.4* - 31.3* 30.9* MCV 87.3 85.7 84.7 - 84.0 83.0 - 86.2 87.8 MCH 28.6 28.6 28.3 - 28.8 28.7 - 28.7 29.0 MCHC 32.8 33.3 33.4 - 34.3 34.5 - 33.2 33.0 PLTCOUNT 632* 309 105* - 25* 33* - 295 321 RDWSD 58.2* 50.7* 49.8 - 46.0 47.0 - 49.9 50.8* RDW 18.9* 17.8* 16.4* - 15.1* 15.3* - 15.7* 15.9* MPV 9.7 11.2 11.7 - - 8.9* - 10.3 10.9 NRBCABS 0.06* 3.04* 2.73* - 0.43* 0.03* - 0.00 0.00 NRBCAUTOPCT 0.9* 37.4* 32.6* - 29.5* 6.5* - 0.0 0.0 NEUTPCT 38.5 - - - - - - 96.5* 93.4* LYMPHSPCT 44.0 - - - - - - 2.4* 3.9* MONOPCT 13.2 - - - - - - 0.4* 2.2* EOSPCT 0.1 - - - 1 1 - 0.0 0.0 BASOPCT 3.9* - - - - - - 0.0 0.0 IMMGRANSPCT 0.3 - - - - - - 0.7 0.5 NEUTABS 2.6 4.37 3.78 - 0.60* 0.02* - 5.3 6.0 LYMPHS 2.9 1.38 1.09 - 0.39* 0.33* - 0.1* 0.3* MONO 0.88* 2.03* 2.18* - 0.45 0.16 - 0.02* 0.14 EOS 0.01 - - - 0.02 0.01 - 0.00 0.00 BASO 0.26* 0.08* 0.08* - - - - 0.00 0.00 TOTCELLCNT - 100 100 - 100 100 - - - - = values in this interval not displayed. Recent Labs Component Name 11/11/19 1231 11/04/19 0858 11/01/19 0909 BUN 11 9 8 CREATININE 1.0 0.9 0.8 NA 142 141 140 POTASSIUM 4.2 4.4 4.1 CL 106 106 104 CO2 23 25 27 CALCIUM 9.2 9.5 9.4 PROT 6.3 6.5 6.3 ALB 3.6 3.3* 3.2* TBILI 0.1* 0.1* 0.3 ALKPHOS 108 128 124 ALT 29 42 47 AST 18 26 25 ANIONGAP 17 14 13 BCR 11 10 10 OSMOLALITY 293 291 288 AGRATIO 1.3 1.0* 1.0* EGFR >60 >60 >60 Recent Labs Component Name 11/11/19 1231 11/04/19 0858 11/01/19 0909 MAGNESIUM 1.8 1.9 1.8 Recent Labs Component Name 11/11/19 1231 11/04/19 0858 11/01/19 0909 PHOS 3.5 2.5 2.9 Routine Monitoring: CMV (weekly starting day 0): 10/25/19 - ND; 11/01/19 ND; 11/11/19 pending ASSESSMENT/PLAN: MARCELLO LUIS is a 49 year old male, who is Day +22 (Day 0 is 10/20/19) of an autologous peripheral blood stem cell transplant with a 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 -maintain on PCN VK post-splenectomy until he can be re-vaccinated and adequate titers demonstrated PJP:??Bactrim DS MWF Viral: ACV 800 mg BID Anxiety/Depression - Lexapro 10 mg daily Restless Leg Syndrome - Requip 0.25 mg QHS Right IJ venous clot 09/27/19 - Eliquis 5 mg BID Discharge Planning: Patients preferred contact information: cell Caregiver: sister, girlfriend Preferred D/C Pharmacy: [facility] Intended lodging: home Referring provider: Cesar Tavares Disposition: RTC 11/15/19 for MD/MIGUEL visit with basic labs and release from BMT clinic [facility] Trans[facility] documented in this encounter Plan of Treatment Upcoming Encounters Date Type Department Care Team (Late st Contact Info) Description 08/26/2024 11:00 AM FUND MANAGER Office Visit [facility] - Pulmonology [address] [place] [address], [place] [address] Andrew Francis MD [address] [place] [address] DIV OF PULMONARY/[place] [address] documented as of this encounter Procedures Procedure Name Priority Date/Time Associated Diagnosis Comments CYTOMEGALOVIRUS (CMV) QUANTITATIVE PLASMA Routine 11/11/2019 12:31 PM CDT Diffuse large B-cell lymphoma, unspecified body region (HCC) CBC W AUTO DIFFERENTIAL STAT 11/11/19 12:31 PM CDT Diffuse large B-cell lymphoma, unspecified body region (HCC) COMPREHENSIVE METABOLIC PANEL STAT 11/11/2019 12:31 PM CDT Diffuse large B-cell lymphoma, unspecified body region (HCC) PHOSPHORUS BLOOD STAT 11/11/2019 12:3 1 PM CDT Diffuse large B-cell lymphoma, unspecified body region (HCC) MAGNESIUM BLOOD STAT 11/11/2019 12:31 PM CDT Diffuse large B-cell lymphoma, unspecified body region (HCC) documented in this encounter Results * (ABNORMAL) CYTOMEGALOVIRUS (CMV) QUANTITATIVE PLASMA (11/11/2019 12:31 PM CDT) CMV Quant By PCR, Blood <50(H) Not Detected IU/mL 11/15/2019 2:34 PM CDT [facility] CMV Quant by PCR, Interp Detected (<50 IU/mL)(A) Not Detected 11/15/2019 2:34 PM CDT [facility] Blood BLOOD SPECIMEN / Unknown Venipuncture / Unknown 11/11/2019 12:31 PM CDT 11/11/2019 12:38 PM CDT Narrative [facility] - 11/15/2019 2:34 PM CDT The CMV DNA analysis utilized [...] using an [place] FDA approved test methodology ([employer] RealTime CMV). The CMV DNA analysis utilized real-time PCR, [...] using an [place] FDA approved test methodology ([employer] RealTime CMV). Tiffanie Nguyen [facility] - CHEMISTRY ORDERABLES [facility] [address] [place] [address], [facility] [phone] * PHOSPHORUS BLOOD (11/11/2019 12:31 PM CDT) Phosphorus 3.5 2.3 - 4.7 mg/dL 11/11/2019 12:57 PM CDT [facility] Blood BLOOD SPECIMEN / Unknown Venipuncture / Unknown 11/11/2019 12:31 PM CDT 11/11/2019 12:38 PM CDT Tiffanie Nguyen [facility] - CHEMISTRY ORDERABLES [address] [address], [facility] [phone] * MAGNESIUM BLOOD (11/11/2019 12:31 PM CDT) Magnesium 1.8 1.6 - 2.6 mg/dL 11/11/2019 12:57 PM CDT [facility] Blood BLOOD SPECIMEN / Unknown Venipuncture / Unknown 11/11/2019 12:31 PM CDT 11/11/2019 12:38 PM CDT Tiffanie Nguyen TOLL BRIDGE ATTENDANT-PRIVACY DIRECTOR LAB - CHEMISTRY ORDERABLES [facility] [address] [phone] * (ABNORMAL) CBC W AUTO DIFFERENTIAL (11/11/2019 12:31 PM CDT) WBC 6.7 3.5 - 10.5 10? 3 /uL 11/11/2019 12:40 PM T [facility] RBC 4.02(L) 4.30 - 5.70 10? 6 /uL 11/11/2019 12:40 PM [facility] Hemoglobin 11.5(L) 13.5 - 17.5 g/dL 11/11/2019 12:40 PM [facility] Hematocrit 35.1(L) 39.0 - 50.0 % 11/11/2019 12:40 PM [facility] MCV 87.3 81.0 - 97.0 fL 11/11/2019 12:40 PM [facility] MCH 28.6 28.0 - 34.0 pg 11/11/2019 12:40 PM [facility] MCHC 32.8 32.0 - 36.0 g/dL 11/11/2019 12:40 PM [facility] Platelet Count 632(H) 150 - 400 10? 3 /uL 11/11/2019 12:40 PM [facility] RDW-SD 58.2(H) 36.0 - 50.0 fL 11/11/2019 12:40 PM [facility] RDW-CV 18.9(H) 11.2 - 14.8 % 11/11/2019 12:40 PM [facility] MPV 9.7 9.3 - 12.8 fL 11/11/2019 12:40 PM [facility] nRBC Absolute 0.06(H) 0 10? 3 /uL 11/11/2019 12:40 PM [facility] nRBC Auto 0.9(H) 0 /100 WBC 11/11/2019 12:40 PM [facility] Neutrophils % 38.5 35.0 - 70.0 % 11/11/2019 12:40 PM [facility] Lymphocytes % 44.0 19.7 - 55.1 % 11/11/2019 12:40 PM [facility] Monocytes % 13.2 3.0 - 15.0 % 11/11/2019 12:40 PM [facility] Eosinophils % 0.1 0.0 - 6.0 % 11/11/2019 12:40 PM [facility] Basophil % 3.9(H) 0.0 - 1.5 % 11/11/2019 12:40 PM [facility] Neutrophils Absolute 2.6 1.6 - 7.0 10? 3 /uL 11/11/2019 12:40 PM [facility] Lymphocyte Absolute 2.9 0.8 - 2.9 10? 3 /uL 11/11/2019 12:40 PM [facility] Monocytes Absolute 0.88(H) 0.14 - 0.66 10? 3 /uL 11/11/2019 12:40 PM [facility] Eosinophils Absolute 0.01 0.00 - 0.45 10? 3 /uL 11/11/2019 12:40 PM [facility] Basophils Absolute 0.26(H) 0.00 - 0.06 10? 3 /uL 11/11/2019 12:40 PM [facility] Immature Granulocytes % 0.3 0.0 - 1.0 % 11/11/2019 12:40 PM [facility] Blood BLOOD SPECIMEN / Unknown Venipuncture / Unknown 11/11/2019 12:31 PM CDT 11/11/2019 12:38 PM CDT Tiffanie Nguyen APRN-PRIVACY DIRECTOR LAB - HEMATOLOG Y ORDERABLES [address] [phone] * (ABNORMAL) COMPREHENSIVE METABOLIC PANEL (11/11/2019 12:31 PM CDT) BUN 11 7 - 26 mg/dL 11/11/2019 12:57 PM [facility] Creatinine 1.0 0.6 - 1.2 mg/dL 11/11/2019 12:57 PM [facility] Sodium 142 136 - 145 mmol/L 11/11/2019 12:57 PM [facility] Potassium 4.2 3.5 - 4.5 mmol/L 11/11/2019 12:57 PM [facility] Chloride 106 98 - 107 mmol/L 11/11/2019 12:57 PM [facility] CO2 23 22 - 29 mmol/L 11/11/2019 12:57 PM [facility] Glucose 89 70 - 115 mg/dL 11/11/2019 12:57 PM [facility] Calcium 9.2 8.4 - 10.2 mg/dL 11/11/2019 12:57 PM [facility] Protein Total 6.3 6.0 - 8.3 g/dL 11/11/2019 12:57 PM [facility] Albumin 3.6 3.4 - 5.0 g/dL 11/11/2019 12:57 PM [facility] Bilirubin Total 0.1(L) 0.2 - 1.2 mg/dL 11/11/2019 12:57 PM [facility] Alkaline Phosphatase 108 40 - 150 Units/L 11/11/2019 12:57 PM [facility] ALT 29 0 - 55 Units/L 11/11/2019 12:57 PM [facility] AST 18 5 - 34 Units/L 11/11/2019 12:57 PM [facility] Anion Gap 17 8 - 18 11/11/2019 12:57 PM [facility] BUN/Creatinine Ratio 11 7 - 23 11/11/2019 12:57 PM [facility] Osmolality Calculated 293 270 - 300 mOsm/kg 11/11/2019 12:57 PM [facility] Albumin/Globulin Ratio 1.3 1.1 - 2.3 11/11/2019 12:57 PM [facility] eGFR >60 >60 mL/min/1.7 3 m2 11/11/2019 12:57 PM [facility] Blood BLOOD SPECIMEN / Unknown Venipuncture / Unknown 11/11/2019 12:31 PM CDT 11/11/2019 12:38 PM CDT Tiffanie RINALDIPRIVACY DIRECTOR LAB - CHEMISTRY ORDERABLES [facility] [address] [place] [address], [facility] [phone] documented in this encounter Visit Diagnoses Diagnosis Diffuse large B-cell lymphoma, unspecified body region (HCC)- Primary Restless legs syndrome (RLS) 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 documented in this encounter Care Teams News Videotape Editor Relationship Specialty Start Date End Date Ran Nuñez MD [address] [place] [address] PCP - General Family Medicine 03/22/19 12/22/20 Hillary Apple MD [address] [place] [address] Hematology and Oncology 03/17/19 Bill Ferrera MD [address] [place] [address] Hematology and Oncology 03/17/19 08/27/21 Tony Dumont MD [address] [place] [address] Hematology and Oncology 03/17/19 Maryjo Reinoso, POWER PLANT OPERATOR Tiltrotor Crew Chief 03/17/19 Madyson Clay, PharmD 03/17/19 Dana Lala APRN-DIRECTOR OF MARKETING OPERATIONS [address] [place] [address] 2nd [place] [address] Oncology 03/17/19 Tiffanie Nguyen APRN-PRIVACY DIRECTOR [address] [place] [address] 2nd [place] [address] Family Medicine 03/17/19 Stephanie Mahoney, RN Registered Nurse 03/17/19 10/29/21 Alycia Galvan, ROSEMARY 03/17/19 10/29/21 Cesar Tavares MD [address] [place] [address] Referring Physician Medical Oncology 03/23/19 Karie Jones, RN Registered Nurse 06/08/19 10/29/21 Joy Bob 09/22/19 Addison Shea, PharmD Pharmacist 09/22/19 10/29/21 documented as of this encounter
--- OUTSIDE RECORDS SUMMARY | 2024-08-18 00:30 | XMS_ITS | Encounter Summary ---
Author Organization [facility] Address [address] [facility] [place] [address] Care Team Providers Care Health Service Worker Name Role Phone Hillary Apple MD Unavailable [phone] Bill Ferrera MD Unavailable [phone] Tony Dumont MD Unavailable [phone] Maryjo Reinoso [facility] Unavailable Unavailable Madyson Clay PharmD Unavailable Unavaila Dana Galicia JUKEBOX ROUTE DRIVER-LITIGATION SERVICES MANAGER Unavailable [phone] Tiffanie Nguyen JUKEBOX ROUTE DRIVER-BRANCH STORE MANAGER Unavailable [phone] Stephanie Mahoney RN Unavailable Unavailable Alycia Galvan RN Unavailable UnavailRan Mejía MD Primary Care Provider Cesar Tavares MD Unavailable [phone] Karie Jones RN Unavailable Unavailable Joy Bob Unavailable Fanta Addison Weinstein PharmD Unavailable Unavailab le Encounter Details Date Type Department Care Team (Late st Contact Info) Description 10/29/2019 Orders Only [facility] BMT CL[facility] [address] [place] [address] Asim Ramirez, JUKEBOX ROUTE DRIVER-BRANCH STORE MANAGER [address] [facility]EMATOLOGY [place] [address] Social History Tobacco Use Types Packs/Day Years [...] st Contact Info) Description 08/26/2024 11:00 AM RECORDING STUDIO INTERNSHIP Office Visit [facility] - Pulmonology [address] [place] [address], [place] [id number] Andrew Francis MD [address] [place] [address] 2L DIV OF PULMONARY/[place] [address] documented as of this encounter Visit Diagnoses Not on filedocumented in this encounter Care Teams Health Service Worker Relationship Specialty Start Date End Date Ran Nuñez MD [address] [place] [address] PCP - General Family Medicine 03/22/19 12/22/20 Hillary Apple MD [address] [place] [address] Hematology and Oncology 03/17/19 Bill Ferrera MD [address] [place] [address] Hematology and Oncology 03/17/19 08/27/21 Tony Dumont MD [facility] [place] [address] Hematology and Oncology 03/17/19 Maryjo Reinoso, PRINCIPAL EXAMINER Production Underwriter 03/17/19 Madyson Clay, PharmD 03/17/19 Dana Lala, JUKEBOX ROUTE DRIVER-LITIGATION SERVICES MANAGER [address] [facility] 2nd [place] [address] Oncology 03/17/19 Tiffanie Nguyen, JUKEBOX ROUTE DRIVER-BRANCH STORE MANAGER [address] [facility] [place] [address] Family Medicine 03/17/19 Stephanie Mahoney, RN Registered Nurse 03/17/19 10/29/21 Alycia Galvan, ROSEMARY 03/17/19 10/29/21 Cesar Tavares MD [address] [place] [address] [place] [address] Referring Physician Medical Oncology 03/23/19 Karie Jones, RN Registered Nurse 06/08/19 10/29/21 Joy Bob 09/22/19 Addison Shea, PharmD Pharmacist 09/22/19 10/29/21 documented as of this encounter
--- OUTSIDE RECORDS SUMMARY | 2024-08-18 00:30 | XMS_ITS | Encounter Summary ---
Author Organization [facility] Address [address] [place] [address] Care Team Providers Care Dobby Loom Chain Pegger Name Role Phone Hillary Apple MD Unavailable [phone] Bill Ferrera MD Unavailable [phone] Tony Dumont MD Unavailable [phone] Maryjo Reinoso [facility] Unavailable Unavailable Madyson Clay PharmD Unavailable Unavaila Dana Galicia BOILER HOUSE INSPECTOR-CUT PLUG PACKER Unavailable [phone] Tiffanie Nguyen BOILER HOUSE INSPECTOR-NARROW GAUGE BRAKEMAN Unavailable [phone] Stephanie Mahoney RN Unavailable Unavailable Alycia Galvan RN Unavailable UnavailRan Mejía MD Primary Care Provider Cesar Tavares MD Unavailable [phone] Karie Jones RN Unavailable Unavailable Joy Bob Unavailable Fanta Addison Weinstein PharmD Unavailable Unavailab le Encounter Details Date Type Department Care Team (Late st Contact Info) Description 10/29/2019 [facility] [address] [place] [address] Hillary Apple MD [address] [facility] [place] [address] Social History Tobacco Use Types Packs/Day Years [...] st Contact Info) Description 08/26/2024 11:00 AM WELL CLEANER Office Visit [facility] - Pulmonology [address] [place] [address], [place] [phone] Andrew Francis MD [address] [place] [address] 2L DIV OF PULMONARY/[place] [address] documented as of this encounter Visit Diagnoses Not on filedocumented in this encounter Care Teams Dobby Loom Chain Pegger Relationship Specialty Start Date End Date Ran Nuñez MD [address] [place] [phone] PCP - General Family Medicine 03/22/19 12/22/20 Hillary Apple MD [address] [place] [address] Hematology and Oncology 03/17/19 Bill Ferrera MD [address] [place] [address] Hematology and Oncology 03/17/19 08/27/21 Tony Dumont MD [address] [place] [address] Hematology and Oncology 03/17/19 Maryjo Reinoso, BLADE WORKER Sales Ambassador 03/17/19 Madyson Clay, PharmD 03/17/19 Dana Lala, BOILER HOUSE INSPECTOR-CUT PLUG PACKER [address] [facility] 2nd [place] [address] Oncology 03/17/19 Tiffanie Nguyen, BOILER HOUSE INSPECTOR-NARROW GAUGE BRAKEMAN [address] [place] [address] Family Medicine 03/17/19 Stephanie Mahoney, RN Registered Nurse 03/17/19 10/29/21 Alycia Galvan, RN 03/17/19 10/29/21 Cesar Tavares MD [address] [place] [address] [place] [address] Referring Physician Medical Oncology 03/23/19 Karie Jones, RN Registered Nurse 06/08/19 10/29/21 Joy Bob 09/22/19 Addison Shea, PharmD Pharmacist 09/22/19 10/29/21 documented as of this encounter
--- OUTSIDE RECORDS SUMMARY | 2024-08-18 00:30 | XMS_ITS | Encounter Summary ---
Author Organization [facility] Address [address] [place] [address] Care Team Providers Care Art Objects Salesperson Name Role Phone Hillary Apple MD Unavailable [phone] Bill Ferrera MD Unavailable [phone] Tony Dumont MD Unavailable [phone] Maryjo Reinoso [facility] Unavailable Unavailable Madyson Clay PharmD Unavailable Unavaila Dana Galicia DOCUMENT CONTROL COORDINATOR-SUPERVISOR CORRESPONDENCE SECTION Unavailable [phone] Tiffanie Nguyen DOCUMENT CONTROL COORDINATOR-PREDATOR CONTROL TRAPPER Unavailable [phone] Stephanie Mahoney RN Unavailable Unavailable Alycia Galvan RN Unavailable UnavailRan Mejía MD Primary Care Provider Cesar Tavares MD Unavailable [phone] Karie Jones RN Unavailable Unavailable Joy Bob Unavailable Fanta Addison Weinstein PharmD Unavailable Unavailab le Encounter Details Date Type Department Care Team (Late st Contact Info) Description 01/27/[address] [facility] [address] [place] [address] Margot Seals, RN Social History Tobacco Use Types Packs/Day [...] encounter Miscellaneous Notes * Telephone Encounter - Margot Seals RN - 01/27/2020 12:37 PM CDT Called Aurelio to remind him about bone marrow biopsy scheduled for tomorrow at 1300, as well as his CT scan at 1130. I reminded him to have a light breakfast and then nothing to eat or drink until after the procedure with the exception of pills with sips of water. I also reminded him that he will need a reliable truck driver teamster for after the procedure. Aurelio was agreeable and understood instruction. No questions at this time. Of note: Aurelio said that he tested positive for COVID-19 on 01/07/20, but had no symptoms. He stated that he stayed in his bedroom for 14 days , and never felt sick. He currently has no URI symptoms, fever, chills, nausea, loss of taste or smell, or other suspicious symptoms. Addendum: Spoke with ROSEMARY Cuello about whether or not we should see Aurelio until he has had a negative screen. She is reaching out to Dr. Apple and will follow up. documented in this encounter Plan of Treatment Upcoming Encounters Date Type Department Care Team (Late st Contact Info) Description 08/26/2024 11:00 AM HOME MAKER Office Visit [facility] Group - Pulmonology [address] [place] [address], [place] [address] Andrew Francis MD [address] [facility] 2L DIV OF PULMONARY/[place] [address] documented as of this encounter Visit Diagnoses Not on filedocumented in this encounter Care Teams Art Objects Salesperson Relationship Specialty Start Date End Date Ran Nuñez MD [address] [place] [address] PCP - General Family Medicine 03/22/19 12/22/20 Hillary Apple MD [address] [place] [address] Hematology and Oncology 03/17/19 Bill Ferrera MD [address] [place] [address] Hematology and Oncology 03/17/19 08/27/21 Tony Dumont MD [address] [place] [address] Hematology and Oncology 03/17/19 Maryjo Reinoso, SMEARER Tattooer 03/17/19 Madyson Clay, PharmD 03/17/19 Dana Lala APRN-SUPERVISOR CORRESPONDENCE SECTION [address] [place] [address] 2nd [place] [address] Oncology 03/17/19 Tiffanie Nguyen APRN-PREDATOR CONTROL TRAPPER [address] [place] [address] 2nd [place] [address] Family Medicine 03/17/19 Stephanie Mahoney, RN Registered Nurse 03/17/19 10/29/21 Alycia Galvan, ROSEMARY 03/17/19 10/29/21 Cesar Tavares MD [address] [place] [address] Referring Physician Medical Oncology 03/23/19 Karie Jones, RN Registered Nurse 06/08/19 10/29/21 Joy Bob 09/22/19 Addison Shea, PharmD Pharmacist 09/22/19 10/29/21 documented as of this encounter
--- OUTSIDE RECORDS SUMMARY | 2024-08-18 00:30 | XMS_ITS | Encounter Summary ---
Author Organization [facility] Address [address] [facility] [place] [address] Care Team Providers Care Polarity Tester Name Role Phone Hillary Apple MD Unavailable [phone] Bill Ferrera MD Unavailable [phone] Tony Dumont MD Unavailable [phone] Maryjo ReinosoW Unavailable Unavailable Madyson Clay PharmD Unavailable Unavaila Dana Galicia FINISHER POLISHER-PARKING RAMP ATTENDANT Unavailable [phone] Tiffanie Nguyen FINISHER POLISHER-DIRECTOR OF FIELD SERVICE Unavailable [phone] Stephanie Mahoney RN Unavailable Unavailable Alycia Galvan RN Unavailable UnavailRan Mejía MD Primary Care Provider Cesar Tavares MD Unavailable [phone] Karie Jones RN Unavailable Unavailable Joy Bob Unavailable Fanta Addison Weinstein PharmD Unavailable Unavailab campbell Reason for Visit * Auth/Cert Specialty Diagnoses / Procedures Referred By Contac t Referred To Contact Diagnoses Diffuse large B cell lymphoma Referral ID Status Reason Start Date Expiration Date Visits Re quested Visits Authorized [id number] 1 1 Encounter Details Date Type Department Care Team (Late st Contact Info) Description 10/30/2019 7:10 AM CDT - 10/30/2019 11:59 PM CDT Hospital Encounter [facility] [address] [place] [address] Bill Ferrera MD [address] [place] [address] Tiffanie Nguyen APRN-DIRECTOR OF FIELD SERVICE [address] [place] [address] Hillary Apple MD [address] [facility] OF H[facility] & [place] [address] Discharge Disposition: Home or Self Care Social [...] have Coronavirus / COVID-19? No / Unsure 10/30/2019 11:30 AM CDT documented as of this encounter Last Filed Vital Signs Vital Sign Reading Time Taken Comments Blood Pressure 139/87 10/30/2019 11:10 AM CDT Pulse 113 10/30/2019 11:10 AM CDT Temperature 37 ??C (98.6 ??F) 10/30/2019 11: 10 AM CDT Respiratory Rate 18 10/30/2019 11:1 0 AM CDT Oxygen Saturation 98% 10/30/2019 11: 10 AM CDT Inhaled Oxygen Concentration - - Weight 121.7 kg (268 lb 4.8 oz) 020 11:10 AM CDT Height - - Body Mass Index 41.4 10/13/2019 3:13 PM CDT documented in this [...] TABLET TWICE DAILY THEREAFTER DIRECTED. 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 INTERVAL HISTORY: Aurelio presents to clinic ambulatory No F/C/N/V/D. Continues to have generalized back pain from granix that's improving but still bothersome Drinking more than 3L since discharge Eating well, altered taste of food No rashes No SOB or chest pain. No cough No lightheadedness or dizziness ROS: A comprehensive [...] at bedtime Reasons: Restless Leg Syndrome ??? [START ON 11/01/2019] sulfamethoxazole-trimethoprim (BACTRIM DS; SEPTRA DS) 800-160 MG tablet Take 1 tablet by mouth every Friday, Friday & Friday Reasons: PJP prophylaxis s/p stem cell transplant Current Facility-Administered Medications Medication ??? heparin lock flush injection 500 Units VITALS: Vitals: 10/30/19 1110 BP: 139/87 Pulse: (!) 113 Resp: 18 Temp: 98.6 ??F SpO2: 98% Weight: 121.7 kg (268 lb 4.8 oz) Wt Readings from Last 3 Encounters: 10/30/19 121.7 kg (268 lb 4.8 oz) 10/29/19 120.5 kg (265 lb 9.6 oz) 10/13/19 120.7 kg (266 lb) PHYSICAL EXAM: Physical Examination: General appearance [...] intact without redness, swelling, or stated tenderness LABS: Recent Labs Component Name 10/30/19 1115 10/29/19 0002 10/28/19 0000 10/27/19 0007 10/24/19 0015 10/23/19 0030 10/19/19 0021 10/17/19 2343 10/17/19 0020 WBC 10.0 1.5* 0.5* - 0.2* - 0.3* 0.6* - 5.5 6.4 9.2 RBC 3.46* 3.37* 3.42* - 3.50* - 3.57* 3.47* - 3.63* 3.52* 3.38* HGB 9.9* 9.7* 9.8* - 10.1* - 10.3* 10.1* - 10.4* 10.2* 9.7* HCT 29.1* 28.3* 28.4* - 29.1* - 30.4* 29.7* - 31.3* 30.9* 29.9* MCV 84.1 84.0 83.0 - 83.1 - 85.2 85.6 - 86.2 87.8 88.5 MCH 28.6 28.8 28.7 - 28.9 - 28.9 29.1 - 28.7 29.0 28.7 MCHC 34.0 34.3 34.5 - 34.7 - 33.9 34.0 - 33.2 33.0 32.4 PLTCOUNT 45* 25* 33* - 3* - 75* 118* - 295 321 312 RDWSD 47.0 46.0 47.0 - 46.8 - 49.1 49.7 - 49.9 50.8* 51.3* RDW 15.5* 15.1* 15.3* - 15.4* - 15.5* 16.0* - 15.7* 15.9* 15.9* MPV - - 8.9* - - - 11.7 11.6 - 10.3 10.9 10.2 NRBCABS 2.23* 0.43* 0.03* - 0.00 - 0.00 0.00 - 0.00 0.00 0.00 NRBCAUTOPCT 22.3* 29.5* 6.5* - 0.0 - 0.0 0.0 - 0.0 0.0 0.0 NEUTPCT - - - - - - - - - 96.5* 93.4* 90.0* LYMPHSPCT - - - - - - - - - 2.4* 3.9* 3.9* MONOPCT - - - - - - - - - 0.4* 2.2* 5.3 EOSPCT - 1 1 - 2 - 12* 27* - 0.0 0.0 0.0 BASOPCT - - - - - - - - - 0.0 0.0 0.0 IMMGRANSPCT - - - - - - - - - 0.7 0.5 0.8 NEUTABS - 0.60* 0.02* - 0.01* - 0.01* 0.31* - 5.3 6.0 8.3* LYMPHS - 0.39* 0.33* - 0.18* - 0.25* 0.13* - 0.1* 0.3* 0.4* MONO - 0.45 0.16 - 0.01* - - - - 0.02* 0.14 0.49 EOS - 0.02 0.01 - 0.00 - 0.04 0.16 - 0.00 0.00 0.00 BASO - - - - - - - - - 0.00 0.00 0.00 TOTCELLCNT - 100 100 - 100 - 100 100 - - - - - = values in this interval not displayed. Recent Labs Component Name 10/30/19 1115 10/29/19 0002 10/28/19 0000 BUN 13 11 11 CREATININE 0.9 1.0 0.9 NA 140 138 137 POTASSIUM 3.9 4.1 4.0 CL 103 101 103 CO2 25 25 25 CALCIUM 9.6 9.1 8.9 PROT 6.4 6.0 5.9* ALB 3.1* 2.9* 2.8* TBILI 0.1* 0.1* 0.1* ALKPHOS 119 102 95 ALT 48 43 54 AST 27 14 18 ANIONGAP 16 16 13 BCR 14 11 12 OSMOLALITY 291 285 284 AGRATIO 0.9* 0.9* 0.9* EGFR >60 >60 >60 Recent Labs Component Name 10/30/19 1115 10/29/19 0002 10/28/19 0000 MAGNESIUM 1.8 1.8 1.9 Recent Labs Component Name 10/30/195 10/29/19 0002 10/28/19 0000 PHOS 3.0 3.5 3.2 Routine Monitoring: CMV (weekly starting day 0): 10/25/19 - ND RADIOGRAPHY: INFECTIOUS: BCx (10/25/19): NGTD UCx (10/25/19): <10,000 CFU/mL urogenital josseline ASSESSMENT/PLAN: MARCELLO LUIS is a 49 year old male, who is Day +10 (Day 0 is 10/20/19) of an autologous [...] Hgb > 7; Plt > 10 Engraftment: pending, first day ANC >500 day +9 (10/28); received granix 10/25/19 - 10/28/19 >last platelet transfusion prior to discharge day +7 (10/27/19) OI prophylaxis: Bacterial:??PenVK 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 Discharged on Requip as it provides better control Right IJ venous clot 09/27/19 - - Can resume Eliquis when PLT recovers, plan to start 11/01/19 Discharge Planning: Patients preferred contact information: cell Caregiver: sister, girlfriend Preferred D/C Pharmacy: [facility] Intended lodging: home Referring provider: Cesar Tavares Disposition: RTC Friday for MIGUEL visit with basic labs and CMV level. Educated Aurelio on risks and side effects of engraftment syndrome, due to his rapid rise in counts. Aurelio currently has no symptoms and will call with anything new or concerning before his next visit. MISSY Ball- Blood and Marrow Transplant Clinic [facility] documented in this encounter Plan of Treatment Upcoming Encounters Date Type Department Care Team (Late st Contact Info) Description 08/26/2024 11:00 AM SUPERVISOR MELT HOUSE Office Visit [facility] - Pulmonology [address] [place] [address], [place] [phone] Andrew Francis MD [address] [place] [address] 2L DIV OF PULMONARY/[place] [address] documented as of this encounter Procedures Procedure Name Priority Date/Time Associated Diagnosis Comments DIFFERENTIAL MANUAL STAT 10/30/2019 1 1:15 AM CDT Diffuse large B-cell lymphoma, unspecified body region (HCC) CBC W AUTO DIFFERENTIAL STAT 10/30/2019 11:15 AM CDT Diffuse large B-cell lymphoma, unspecified body region (HCC) COMPREHENSIVE METABOLIC PANEL STAT 10/30/2019 11:15 AM CDT Diffuse large B-cell lymphoma, unspecified body region (HCC) PHOSPHORUS BLOOD STAT 10/30/2019 11:1 5 AM CDT Diffuse large B-cell lymphoma, unspecified body region (HCC) MAGNESIUM BLOOD STAT 10/30/2019 11:15 AM CDT Diffuse large B-cell lymphoma, unspecified body region (HCC) documented in this encounter Results * (ABNORMAL) DIFFERENTIAL MANUAL (10/30/2019 11:15 AM CDT) WBC (corrected for NRBC) 10.0 10? 3 /uL 10/30/2019 12:11 PM [facility] Total Cell Count 100 10/30/19 20 12:11 PM [facility] Neutrophils Absolute Manual 5.60 1.60 - 7.00 10? 3 /uL 10/30/2019 12:11 PM [facility] Comment:(BANDS+SEGS) x WBC = NEUT # (ANC) Lymphocyte Absolute Manual 1.30 0.80 - 2.90 10? 3 /uL 10/30/2019 12:11 PM [facility] Monocytes Absolute Manual 1.90(H) 0.14 - 0.66 10? 3 /uL 10/30/2019 12:11 PM [facility] Band % Manual 19(H) 0 - 10 % 10/30/2019 12:11 PM [facility] Neutrophil % Manual 37 30 - 60 % 10/30/2019 12:11 PM [facility] Lymphocyte % Manual 13(L) 20 - 45 % 10/30/2019 12:11 PM [facility] Monocytes % Manual 19(H) 2 - 10 % 10/30/2019 12:11 PM [facility] Atypical Lymphocyte % Manual 3(H) 0 % 10/30/2019 12:11 PM [facility] Metamyelocyte % Manual 8(H) 0 % 10/30/2019 12:11 PM [facility] Promyelocyte % Manual 1(H) 0 % 10/30/2019 12:11 PM [facility] nRBC Manual 24(H) 0 /100 WBC 10/30/2019 12:11 PM [facility] Platelet Estimate Decreased (A) Adequate 10/30/2019 12:11 PM [facility] Anisocytosis 1+(A) None 10/30/2019 12:11 PM [facility] Polychromasia Occasiona l(A) None 10/30/2019 12:11 PM [facility] Blank-[place] Bodies Occasiona l(A) None 10/30/2019 12:11 PM [facility] Target Cells 1+(A) None 10/30/2019 12:11 PM T [facility] Schistocytes Rare(A) None 10/30/2019 12:11 PM [facility] Ovalocytes 1+(A) None 10/30/2019 12:11 PM [facility] Tear Drop Cells 1+(A) None 0 12:11 PM [facility] Dohle Bodies Rare(A) None 10/30/2019 12:11 PM [facility] Blood BLOOD SPECIMEN / Unknown Venipuncture / Unknown 10/30/2019 11:15 AM CDT 10/30/2019 11:19 AM CDT Tiffanie Nguyen FINISHER POLISHER-DIRECTOR OF FIELD SERVICE LAB - HEMATOLOG Y ORDERABLES [address] [phone] * PHOSPHORUS BLOOD (10/30/2019 11:15 AM CDT) Phosphorus 3.0 2.3 - 4.7 mg/dL 10/30/2019 11:37 AM [facility] Blood BLOOD SPECIMEN / Unknown Venipuncture / Unknown 10/30/2019 11:15 AM CDT 10/30/2019 11:19 AM CDT Tiffanie Nguyen FINISHER POLISHER-[facility] LAB - CHEMISTRY ORDERABLES Performing Organization Address City/[facility]/ZIP Co de Phone Number [address] [phone] * MAGNESIUM BLOOD (10/30/2019 11:15 AM CDT) Magnesium 1.8 1.6 - 2.6 mg/dL 10/30/2019 11:37 AM CDT [facility] Blood BLOOD SPECIMEN / Unknown Venipuncture / Unknown 10/30/2019 11:15 AM CDT 10/30/2019 11:19 AM CDT Tiffanie Nguyen FINISHER [facility] - CHEMISTRY ORDERABLES Performing Organization Address [facility]/ZIP Co de Phone Number [address] [phone] * (ABNORMAL) CBC W AUTO DIFFERENTIAL (10/30/2019 11:15 AM CDT) WBC 10.0 3.5 - 10.5 10? 3 /uL 10/30/2019 11:30 AM [facility] Comment:The WBC count is cor rected by the instrument for [employer] CBC parameters have been checked. RBC 3.46(L) 4.30 - 5.70 10? 6 /uL 10/30/2019 11:30 AM [facility] Hemoglobin 9.9(L) 13.5 - 17.5 g/dL 10/30/2019 11:30 AM [facility] Hematocrit 29.1(L) 39.0 - 50.0 % 10/30/2019 11:30 AM [facility] MCV 84.1 81.0 - 97.0 fL 10/30/2019 11:30 AM T [facility] MCH 28.6 28.0 - 34.0 pg 10/30/2019 11:30 AM [facility] MCHC 34.0 32.0 - 36.0 g/dL 10/30/2019 11:30 AM [facility] Platelet Count 45(L) 150 - 400 10? 3 /uL 10/30/2019 11:30 AM [facility] Comment:Results have been ch ecked by peripheral smear. RDW-SD 47.0 36.0 - 50.0 fL 10/30/2019 11:30 AM [facility] RDW-CV 15.5(H) 11.2 - 14.8 % 10/30/2019 11:30 AM [facility] MPV 10/30/2019 11:30 AM [facility] Comment:unreportable nRBC Absolute 2.23(H) 0 10? 3 /uL 10/30/2019 11:30 AM [facility] nRBC Auto 22.3(H) 0 /100 WBC 10/30/2019 11:30 AM [facility] Blood BLOOD SPECIMEN / Unknown Venipuncture / Unknown 10/30/2019 11:15 AM CDT 10/30/2019 11:19 AM CDT Tiffanie Nguyen FINISHER POLISHER-DIRECTOR OF FIELD SERVICE LAB - HEMATOLOG Y ORDERABLES Performing Organization Address City/State/[facility] Co de Phone Number [address] [phone] * (ABNORMAL) COMPREHENSIVE METABOLIC PANEL (10/30/2019 11:15 AM CDT) BUN 13 7 - 26 mg/dL 10/30/2019 11:37 AM [facility] Creatinine 0.9 0.6 - 1.2 mg/dL 10/30/2019 11:37 AM [facility] Sodium 140 136 - 145 mmol/L 10/30/2019 11:37 AM [facility] Potassium 3.9 3.5 - 4.5 mmol/L 10/30/2019 11:37 AM [facility] Chloride 103 98 - 107 mmol/L 10/30/2019 11:37 AM [facility] CO2 25 22 - 29 mmol/L 10/30/2019 11:37 AM [facility] Glucose 110 70 - 115 mg/dL 10/30/2019 11:37 AM [facility] Calcium 9.6 8.4 - 10.2 mg/dL 10/30/2019 11:37 AM [facility] Protein Total 6.4 6.0 - 8.3 g/dL 10/30/2019 11:37 AM [facility] Albumin 3.1(L) 3.4 - 5.0 g/dL 10/30/2019 11:37 AM [facility] Bilirubin Total 0.1(L) 0.2 - 1.2 mg/dL 10/30/2019 11:37 AM [facility] Alkaline Phosphatase 119 40 - 150 Units/L 10/30/2019 11:37 AM [facility] ALT 48 0 - 55 Units/L 10/30/2019 11:37 AM [facility] AST 27 5 - 34 Units/L 10/30/2019 11:37 AM [facility] Anion Gap 16 8 - 18 10/30/2019 11:37 AM [facility] BUN/Creatinine Ratio 14 7 - 23 10/30/2019 11:37 AM [facility] Osmolality Calculated 291 270 - 300 mOsm/kg 10/30/2019 11:37 AM [facility] Albumin/Globulin Ratio 0.9(L) 1.1 - 2.3 10/30/2019 11:37 AM [facility] eGFR >60 >60 mL/min/1.7 3 m2 10/30/2019 11:37 AM [facility] Blood BLOOD SPECIMEN / Unknown Venipuncture / Unknown 10/30/2019 11:15 AM T 10/30/2019 11:19 AM [facility] Tiffanie Nguyen FINISHER POLISHER-DIRECTOR OF FIELD SERVICE LAB - CHEMISTRY ORDERABLES [facility] [address] [place] [address] documented in this encounter Visit Diagnoses Diagnosis [...] Intracatheter, PRN, Other, Site maintenance, Starting on 10/30/19 at 0721, Until 10/30/19 at 1920 $ Given 10/30/2019 11:48 AM CDT 500 Units $ Given 10/30/2019 11:47 AM CDT 500 Units $ Given 10/30/2019 11:46 AM CDT 500 Units documented in this encounter Care Teams Polarity Tester Relationship Specialty Start Date End Date Ran Nuñez MD [address] [place] [phone] PCP - General Family Medicine 03/22/19 12/22/20 Hillary Apple MD [address] [place] [address] Hematology and Oncology 03/17/19 Bill Ferrera MD [address] [place] [address] Hematology and Oncology 03/17/19 08/27/21 Tony Dumont MD [address] [place] [address] Hematology and Oncology 03/17/19 Maryjo Reinoso, AUTOPSY PATHOLOGIST Print Developer 03/17/19 Madyson Clay, PharmD 03/17/19 Dana Lala, FINISHER POLISHER-PARKING RAMP ATTENDANT [address] [place] [address] [address] [place] [address] Oncology 03/17/19 Tiffanie Nguyen, FINISHER POLISHER-DIRECTOR OF FIELD SERVICE [address] [place] [address] [place] [address] Family Medicine 03/17/19 Stephanie Mahoney, RN Registered Nurse 03/17/19 10/29/21 Alycia Galvan, RN 03/17/19 10/29/21 Cesar Tavares MD [address] [place] [id number] Referring Physician Medical Oncology 03/23/19 Karie Jones, RN Registered Nurse 06/08/19 10/29/21 Joy Bob 09/22/19 Addison Shea, PharmD Pharmacist 09/22/19 10/29/21 documented as of this encounter
--- OUTSIDE RECORDS SUMMARY | 2024-08-18 00:30 | XMS_ITS | Encounter Summary ---
Author Organization [facility] Address [address] [place] [address] Care Team Providers Care Verification Specialist Name Role Phone Hillary Apple MD Unavailable [phone] Bill Ferrera MD Unavailable [phone] Tony Dumont MD Unavailable [phone] Maryjo ReinosoW Unavailable Unavailable Madyson Clay PharmD Unavailable Unavaila Dana Galicia ORDER ENTRY TECHNICIAN-TETRYL BLENDER OPERATOR Unavailable [phone] Tiffanie Nguyen ORDER ENTRY TECHNICIAN-GRADES 7 AND 8 VISITING TEACHER Unavailable [phone] Stephanie Mahoney RN Unavailable Unavailable Alycia Galvan RN Unavailable UnavailRan Mejía MD Primary Care Provider Cesar Tavares MD Unavailable [phone] Karie Jones RN Unavailable Unavailable Joy Bob Unavailable Fanta Addison Weinstein PharmD Unavailable Unavailab le Encounter Details Date Type Department Care Team (Latest Contact Info) Description 11/04/2019 Travel Social History Tobacco Use Types Packs/Day [...] st Contact Info) Description 08/26/2024 11:00 AM MEDICAL GENETICS DIRECTOR Office Visit [facility] - Pulmonology [address] [place] [address], [place] [address] Andrew Francis MD [address] [place] [address] 2L DIV OF PULMONARY/[place] [address] documented as of this encounter Visit Diagnoses Not on filedocumented in this encounter Care Teams Verification Specialist Relationship Specialty Start Date End Date Ran Nuñez MD [address] [place] [address] PCP - General Family Medicine 03/22/19 12/22/20 [place] [address] [place] [address] Hematology and Oncology 03/17/19 Bill Ferrera MD [address] [place] [address] Hematology and Oncology 03/17/19 08/27/21 Tony Dumont MD [address] [place] [address] Hematology and Oncology 03/17/19 Maryjo Reinoso, TRANSPORTATION MODELER Anesthesiologist/Physician 03/17/19 Madyson Clay, PharmD 03/17/19 Dana Lala, ORDER ENTRY TECHNICIAN-TETRYL BLENDER OPERATOR [address] [facility] [address] [address] Oncology 03/17/19 Tiffanie Nguyen, ORDER ENTRY TECHNICIAN-GRADES 7 AND 8 VISITING TEACHER [address] [place] [address] Family Medicine 03/17/19 Stephanie Mahoney, RN Registered Nurse 03/17/19 10/29/21 Alycia Galvan, ROSEMARY 03/17/19 10/29/21 Cesar Tavares MD [address] [place] [address] Referring Physician Medical Oncology 03/23/19 Karie Jones, RN Registered Nurse 06/08/19 10/29/21 Joy Bob 09/22/19 Addison Shea, PharmD Pharmacist 09/22/19 10/29/21 documented as of this encounter
--- OUTSIDE RECORDS SUMMARY | 2024-08-18 00:30 | XMS_ITS | Encounter Summary ---
Author Organization [facility] Address [address] [facility] [place] [address] Care Team Providers Care Air Traffic Coordinator Name Role Phone Hillary Appel MD Unavailable [phone] Bill Ferrera MD Unavailable [phone] Tony Dumont MD Unavailable Maryjo Reinoso [facility] Unavailable Unavailable Madyson Clay PharmD Unavailable Unavaila Dana Galicia RUG CLEANING SUPERVISOR-SOLUTION ANALYST Unavailable [phone] Tiffanie Nguyen APRN-INDUSTRIAL TRUCK OPERATOR Unavailable [phone] Stephanie Mahoney RN Unavailable Unavailable Alycia Galvan RN Unavailable UnavailRan Mejía MD Primary Care Provider Cesar Tavares MD Unavailable [phone] Karie Jones RN Unavailable Unavailable Joy Bob Unavailable Fanta Addison Weinstein PharmD Unavailable Unavailab le Encounter Details Date Type Department Care Team (Latest Contact Info) Description 11/15/2019 8:57 AM CDT - 11/15/2019 11:59 PM CDT Hospital Encounter [facility] BMT CLINIC [address] [place] [address] Bill Ferrera MD [address] [facility] [address] [place] [address] Tiffanie Nguyen RUG CLEANING SUPERVISOR-INDUSTRIAL TRUCK OPERATOR [address] [place] [address] Discharge Disposition: Home or Self Care Social [...] Sign Reading Time Taken Comments Blood Pressure 124/89 11/15/2019 9:00 AM CDT Pulse 95 11/15/2019 9:00 AM CDT Temperature 36.7 ??C (98.1 ??F) 11/15/2019 9:00 AM CD T Respiratory Rate 18 11/15/2019 9:00 AM CDT Oxygen Saturation 100% 11/15/2019 9:00 AM CDT Inhaled Oxygen Concentration - - Weight 123.4 kg (272 lb) 11/15/2019 9:00 AM CDT Height - - Body Mass Index 42.6 11/11/2019 1:42 PM CDT documented in this encounter Functional [...] of this encounter Progress Notes * Patrick Tiffanie Seymour, RUG CLEANING SUPERVISOR-INDUSTRIAL TRUCK OPERATOR - 11/15/2019 9:00 AM CDT Autologous Hematopoietic Stem Cell Daily Note: PATIENT IDENTIFIERS: MARCELLO LUIS is a 49 year old male who is Day +26 (Day 0 is 10/20/19) of an autologous peripheral blood stem cell transplant with a 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 INTERVAL HISTORY: Aurelio presents to clinic ambulatory No F/CN/V/D. Surprised he's gained weight. Still has altered taste buds. Drinking well No SOB or chest pain. Has BARNES with exercise. Working on getting strength back. Sleeping OK at night, as been waking up in the middle of the night and can't go back to sleep. Feels fatigued but this is improving. ROS: A comprehensive review of systems was [...] Reasons: PJP prophylaxis s/p stem cell transplant No current facility-administered medications for this encounter. VITALS: Vitals: 11/15/19 0900 BP: 124/89 Pulse: 95 Resp: 18 Temp: 98.1 ??F SpO2: 100% Weight: 123.4 kg (272 lb) Wt Readings from Last 3 Encounters: 11/15/19 123.4 kg (272 lb) 11/11/19 121.7 kg (268 lb 6.4 oz) 11/11/19 121.6 kg (268 lb 0.3 oz) PHYSICAL EXAM: Karnofsky/Eco/1 Physical Examination: General [...] lesions noted LABS: Recent Labs Component Name 11/15/19 0911 11/11/19 1231 11/04/19 0858 10/29/19 0002 10/19/19 0021 WBC 8.1 6.7 8.1 - 1.5* - 5.5 RBC 4.09* 4.02* 3.92* - 3.37* - 3.63* HGB 11.9* 11.5* 11.2* - 9.7* - 10.4* HCT 35.8* 35.1* 33.6* - 28.3* - 31.3* MCV 87.5 87.3 85.7 - 84.0 - 86.2 MCH 29.1 28.6 28.6 - 28.8 - 28.7 MCHC 33.2 32.8 33.3 - 34.3 - 33.2 PLTCOUNT 560* 632* 309 - 25* - 295 RDWSD 61.7* 58.2* 50.7* - 46.0 - 49.9 RDW 19.7* 18.9* 17.8* - 15.1* - 15.7* MPV 9.7 9.7 11.2 - - - 10.3 NRBCABS 0.02* 0.06* 3.04* - 0.43* - 0.00 NRBCAUTOPCT 0.2* 0.9* 37.4* - 29.5* - 0.0 NEUTPCT 43.7 38.5 - - - - 96.5* LYMPHSPCT 37.8 44.0 - - - - 2.4* MONOPCT 13.0 13.2 - - - - 0.4* EOSPCT 1.1 0.1 - - 1 - 0.0 BASOPCT 4.0* 3.9* - - - - 0.0 IMMGRANSPCT 0.4 0.3 - - - - 0.7 NEUTABS 3.5 2.6 4.37 - 0.60* - 5.3 LYMPHS 3.1* 2.9 1.38 - 0.39* - 0.1* MONO 1.05* 0.88* 2.03* - 0.45 - 0.02* EOS 0.09 0.01 - - 0.02 - 0.00 BASO 0.32* 0.26* 0.08* - - - 0.00 TOTCELLCNT - - 100 - 100 - - - = values in this interval not displayed. Recent Labs Component Name 11/15/1991011/11/19123011/04/19 0858 BUN 13 11 9 CREATININE 0.9 1.0 0.9 NA 140 142 141 POTASSIUM 4.2 4.2 4.4 CL 109* 106 106 CO2 18* 23 25 CALCIUM 9.6 9.2 9.5 PROT 6.4 6.3 6.5 ALB 3.7 3.6 3.3* TBILI 0.1* 0.1* 0.1* ALKPHOS 102 108 128 ALT 22 29 42 AST 15 18 26 ANIONGAP 17 17 14 BCR 14 11 10 OSMOLALITY 290 293 291 AGRATIO 1.4 1.3 1.0* EGFR >60 >60 >60 Recent Labs Component Name 11/15/1991011/11/19 12311/04/19 0858 MAGNESIUM 1.8 1.8 1.9 Recent Labs Component Name 11/15/19 0911 11/11/19 1231 11/04/19 0858 PHOS 2.8 3.5 2.5 Routine Monitoring: CMV (weekly through day 30) 11/01/19 ND; 11/11/19 pending ASSESSMENT/PLAN: MARCELLO LUIS is a 49 year old male, who is Day +26 (Day 0 is 10/20/19) of an autologous [...] lodging: home Referring provider: Cesar Tavares Disposition: Release from BMT clinic at this time back to Dr. Tavares. We will plan to see Aurelio again for day 100 evaluation. MISSY Ball- Blood and Mar[facility] Transplant Clinic [facility] Associated attestation - Hillary Apple MD - 11/15/2019 10:27 AM CDT I have seen and examined the patient with the resident and I agree with the findings and plan of care as documented by the resident/fellow. Date of Service: 11/15/19 Additional notes by me include: Day 26 Doing very well Transplant course was smooth No FABRIC AND ACCESSORIES ESTIMATOR Discussed need to be vigilant about infection Advised against edibles I spoke to Dr. Tavares as well Aurelio will stay on PCN VK until all conjugated vaccines are completed and adequate titers demonstrated given aplenic state Bactrim will stay on until day 100 at which point we will check a CD4 count Acyclovir will stay on until about 6 month bill, 2 weeks post completion of 2nd Shingrix dose UE DVT was catheter associated but extensive and quite symptomatic, plan anticoagulation until day [address] scans and BMBx Hillary Apple MD MSc otr company truck driver Interim Director, Division of Hematology/Oncology [facility] documented in this encounter Plan of Treatment Upcoming Encounters Date Type Department Care Team (Late st Contact Info) Description 08/26/2024 11:00 AM BRIQUETTE MOLDER Office Visit [facility] - Pulmonology [address] [place] [address], [place] [address] Andrew Francis MD [address] [place] [address] 2L DIV OF PULMONARY/[place] [address] documented as of this encounter Procedures Procedure Name Priority Date/Time Associated Diagnosis Comments CYTOMEGALOVIRUS (CMV) QUANTITATIVE PLASMA Routine 11/15/2019 9:11 AM CDT Diffuse large B-cell lymphoma, unspecified body region (HCC) CBC W AUTO DIFFERENTIAL STAT 11/15/19 9:11 AM CDT Diffuse large B-cell lymphoma, unspecified body region (HCC) COMPREHENSIVE METABOLIC PANEL STAT 11/15/2019 9:11 AM CDT Diffuse large B-cell lymphoma, unspecified body region (HCC) PHOSPHORUS BLOOD STAT 11/15/2019 9:11 AM CDT Diffuse large B-cell lymphoma, unspecified body region (HCC) MAGNESIUM BLOOD STAT 11/15/2019 9:11 AM CDT Diffuse large B-cell lymphoma, unspecified body region (HCC) documented in this encounter Results * CYTOMEGALOVIRUS (CMV) QUANTITATIVE PLASMA (11/15/2019 9:11 AM CDT) CMV Quant by PCR, Interp Not Detected Not Detected 11/17/2019 12:37 PM CDT [facility] Blood BLOOD SPECIMEN / Unknown Venipuncture / Unknown 11/15/2019 9:11 AM CDT 11/15/2019 9:20 AM CDT Narrative [facility] - 11/17/2019 12:37 PM CDT The CMV DNA analysis utilized [...] using an [place] FDA approved test methodology ([employer] RealTime CMV). Tiffanie Nguyen RUG CLEANING SUPERVISOR-INDUSTRIAL TRUCK OPERATOR LAB - CHEMISTRY ORDERABLES [facility] [address] [place] [address], [facility] [phone] * PHOSPHORUS BLOOD (11/15/2019 9:11 AM CDT) Phosphorus 2.8 2.3 - 4.7 mg/dL 11/15/2019 9:54 AM CDT [facility] Blood BLOOD SPECIMEN / Unknown Venipuncture / Unknown 11/15/2019 9:11 AM CDT 11/15/2019 9:20 AM CDT Tiffanie Nguyen [facility]UG CLEANING [facility] LAB - CHEMISTRY ORDERABLES [address] [phone] * MAGNESIUM BLOOD (11/15/2019 9:11 AM CDT) Pathologist [facility] Magnesium 1.8 1.6 - 2.6 mg/dL 11/15/2019 9:54 AM CDT [facility] Blood BLOOD SPECIMEN / Unknown Venipuncture / Unknown 11/15/2019 9:11 AM CDT 11/15/2019 9:20 AM CDT Tiffanie Nguyen [facility]UG CLEANING [facility] LAB - CHEMISTRY ORDERABLES [address] [phone] * (ABNORMAL) CBC W AUTO DIFFERENTIAL (11/15/2019 9:11 AM CDT) Pathologist [facility] WBC 8.1 3.5 - 10.5 10? 3 /uL 11/15/2019 9:23 AM CDT [facility] RBC 4.09(L) 4.30 - 5.70 10? 6 /uL 11/15/2019 9:23 AM T [facility] Hemoglobin 11.9(L) 13.5 - 17.5 g/dL 11/15/2019 9:23 AM T [facility] Hematocrit 35.8(L) 39.0 - 50.0 % 11/15/2019 9:23 AM T [facility] MCV 87.5 81.0 - 97.0 fL 11/15/2019 9:23 AM T [facility] MCH 29.1 28.0 - 34.0 pg 11/15/2019 9:23 AM [facility] MCHC 33.2 32.0 - 36.0 g/dL 11/15/2019 9:23 AM [facility] Platelet Count 560(H) 150 - 400 10? 3 /uL 11/15/2019 9:23 AM [facility] RDW-SD 61.7(H) 36.0 - 50.0 fL 11/15/2019 9:23 AM [facility] RDW-CV 19.7(H) 11.2 - 14.8 % 11/15/2019 9:23 AM [facility] MPV 9.7 9.3 - 12.8 fL 11/15/2019 9:23 AM [facility] nRBC Absolute 0.02(H) 0 10? 3 /uL 11/15/2019 9:23 AM [facility] nRBC Auto 0.2(H) 0 /100 WBC 11/15/2019 9:23 AM [facility] Neutrophils % 43.7 35.0 - 70.0 % 11/15/2019 9:23 AM [facility] Lymphocytes % 37.8 19.7 - 55.1 % 11/15/2019 9:23 AM [facility] Monocytes % 13.0 3.0 - 15.0 % 11/15/2019 9:23 AM [facility] Eosinophils % 1.1 0.0 - 6.0 % 11/15/2019 9:23 AM [facility] Basophil % 4.0(H) 0.0 - 1.5 % 11/15/2019 9:23 AM [facility] Neutrophils Absolute 3.5 1.6 - 7.0 10? 3 /uL 11/15/2019 9:23 AM [facility] Lymphocyte Absolute 3.1(H) 0.8 - 2.9 10? 3 /uL 11/15/2019 9:23 AM [facility] Monocytes Absolute 1.05(H) 0.14 - 0.66 10? 3 /uL 11/15/2019 9:23 AM [facility] Eosinophils Absolute 0.09 0.00 - 0.45 10? 3 /uL 11/15/2019 9:23 AM [facility] Basophils Absolute 0.32(H) 0.00 - 0.06 10? 3 /uL 11/15/2019 9:23 AM [facility] Immature Granulocytes % 0.4 0.0 - 1.0 % 11/15/2019 9:23 AM [facility] Blood BLOOD SPECIMEN / Unknown Venipuncture / Unknown 11/15/2019 9:11 AM CDT 11/15/2019 9:20 AM T Lara Patrick RUG CLEANING SUPERVISOR-INDUSTRIAL TRUCK OPERATOR LAB - HEMATOLOG Y ORDERABLES [facility] [address] [place] [address] * (ABNORMAL) COMPREHENSIVE METABOLIC PANEL (11/15/2019 9:11 AM [facility]) BUN 13 7 - 26 mg/dL 11/15/2019 9:54 AM [facility] Creatinine 0.9 0.6 - 1.2 mg/dL 11/15/2019 9:54 AM [facility] Sodium 140 136 - 145 mmol/L 11/15/2019 9:54 AM [facility] Potassium 4.2 3.5 - 4.5 mmol/L 11/15/2019 9:54 AM [facility] Chloride 109(H) 98 - 107 mmol/L 11/15/2019 9:54 AM [facility] CO2 18(L) 22 - 29 mmol/L 11/15/2019 9:54 AM [facility] Glucose 103 70 - 115 mg/dL 11/15/2019 9:54 AM [facility] Calcium 9.6 8.4 - 10.2 mg/dL 11/15/2019 9:54 AM [facility] Protein Total 6.4 6.0 - 8.3 g/dL 11/15/2019 9:54 AM [facility] Albumin 3.7 3.4 - 5.0 g/dL 11/15/2019 9:54 AM [facility] Bilirubin Total 0.1(L) 0.2 - 1.2 mg/dL 11/15/2019 9:54 AM [facility] Alkaline Phosphatase 102 40 - 150 Units/L 11/15/2019 9:54 AM [facility] ALT 22 0 - 55 Units/L 11/15/2019 9:54 AM [facility] AST 15 5 - 34 Units/L 11/15/2019 9:54 AM [facility] Anion Gap 17 8 - 18 11/15/2019 9:54 AM [facility] BUN/Creatinine Ratio 14 7 - 23 11/15/2019 9:54 AM [facility] Osmolality Calculated 290 270 - 300 mOsm/kg 11/15/2019 9:54 AM [facility] Albumin/Globulin Ratio 1.4 1.1 - 2.3 11/15/2019 9:54 AM [facility] eGFR >60 >60 mL/min/1.7 3 m2 11/15/2019 9:54 AM [facility] Blood BLOOD SPECIMEN / Unknown Venipuncture / Unknown 11/15/2019 9:11 AM T 11/15/2019 9:20 AM [facility] Tiffanie Nguyen RUG CLEANING SUPERVISOR-INDUSTRIAL TRUCK OPERATOR LAB - CHEMISTRY ORDERABLES Performing Organization Address City/State/[facility] Co de Phone Number [facility] [address] [phone] documented in this encounter Visit Diagnoses Diagnosis Diffuse large B-cell lymphoma, unspecified body region (HCC)- Primary Anxiety Anxiety state, unspecified documented in this encounter Care Teams Air Traffic Coordinator Relationship Specialty Start Date End Date Ran Nuñez [place] [address] PCP - General Family Medicine 03/22/19 12/22/20 Hillary Apple MD [address] [place] [address] Hematology and Oncology 03/17/19 Bill Ferrera MD [address] [place], [place] [id number] Hematology and Oncology 03/17/19 08/27/21 Tony Dumont MD [address] [place] [address] Hematology and Oncology 03/17/19 Maryjo Reinoso, PERCUSSION INSTRUCTOR Cleaner Assistant 03/17/19 Madyson Clay, PharmD 03/17/19 Dana Lala, RUG CLEANING SUPERVISOR-SOLUTION ANALYST [address] [facility] 2[place] [address] Oncology 03/17/19 Tiffanie Nguyen, RUG CLEANING SUPERVISOR-INDUSTRIAL TRUCK OPERATOR [address] [facility] 2[address] [place] [address] Family Medicine 03/17/19 Stephanie Mahoney, RN Registered Nurse 03/17/19 10/29/21 Alycia Galvan, ROSEMARY 03/17/19 10/29/21 Cesar Tavares MD [address] [place] [address] [place] [address] Referring Physician Medical Oncology 03/23/19 Karie Jones, RN Registered Nurse 06/08/19 10/29/21 Joy Bob 09/22/19 Addison Shea, PharmD Pharmacist 09/22/19 10/29/21 documented as of this encounter
--- OUTSIDE RECORDS SUMMARY | 2024-08-18 00:30 | XMS_ITS | Encounter Summary ---
Author Organization [facility] Address [address] [facility] [place] [place] [address] Care Team Providers Care Bulk Picker Name Role Phone Hillary Apple MD Unavailable [phone] Bill Ferrera MD Unavailable [phone] Tony Dumont MD Unavailable [phone] Maryjo ReinosoW Unavailable Unavailable Madyson Clay PharmD Unavailable Unavaila Dana Galicia METEOROLOGY INSTRUCTOR-LEAD MANUFACTURING ENGINEERING TECH Unavailable [phone] Tiffanie Nguyen METEOROLOGY INSTRUCTOR-COBOL MAINFRAME DEVELOPER Unavailable Stephanie Mahoney RN Unavailable Unavailable Alycia Galvan RN Unavailable UnavailRan Mejía MD Primary Care Provider Cesar Tavares MD Unavailable [phone] Karie Jones RN Unavailable Unavailable Joy Bob Unavailable Fanta Addison Weinstein PharmD Unavailable Unavailab le Encounter Details Date Type Department Care Team (Latest Contact Info) Description 02/10/2020 Travel Social History Tobacco Use Types Packs/Day [...] st Contact Info) Description 08/26/2024 11:00 AM CHAMPAGNE MAKER Office Visit [facility] - Pulmonology [address] [place] [address], [place] [address] Andrew Francis MD [address] [place] [address] 2L DIV OF PULMONARY/[place] [address] documented as of this encounter Visit Diagnoses Not on filedocumented in this encounter Care Teams Bulk Picker Relationship Specialty Start Date End Date Ran Nuñez MD [address] [place] [address] PCP - General Family Medicine 03/22/19 12/22/20 [place] [address] [place] [address] Hematology and Oncology 03/17/19 Bill Ferrera MD [address] [place] [address] Hematology and Oncology 03/17/19 08/27/21 Tony Dumont MD [address] [place] [address] Hematology and Oncology 03/17/19 Maryjo Reinoso, MANAGER ENTERPRISE CONTENT MANAGEMENT Radio Despatcher 03/17/19 Madyson Clay, PharmD 03/17/19 Dana Lala, METEOROLOGY INSTRUCTOR-LEAD MANUFACTURING ENGINEERING TECH [address] [facility] 2nd [place] [address] Oncology 03/17/19 Tiffanie Nguyen, METEOROLOGY INSTRUCTOR-COBOL MAINFRAME DEVELOPER [address] [place] [address] Family Medicine 03/17/19 Stephanie Mahoney, RN Registered Nurse 03/17/19 10/29/21 Alycia Galvan, ROSEMARY 03/17/19 10/29/21 Cesar Tavares MD [address] [place] [address] Referring Physician Medical Oncology 03/23/19 Karie Jones, RN Registered Nurse 06/08/19 10/29/21 Joy Bob 09/22/19 Addison Shea, PharmD Pharmacist 09/22/19 10/29/21 documented as of this encounter
--- OUTSIDE RECORDS SUMMARY | 2024-08-18 00:30 | XMS_ITS | Encounter Summary ---
Author Organization [facility] Address [address] [place] [address] Care Team Providers Care Oil Spot Washer Name Role Phone Hillary Apple MD Unavailable [phone] Bill Ferrera MD Unavailable [phone] Tony Dumont MD Unavailable [phone] Maryjo ReinosoW Unavailable Unavailable Madyson Clay PharmD Unavailable Unavaila Dana Galicia LACE SEWER-ACCOUNT SUPPORT REP Unavailable [phone] Tiffanie Nguyen LACE SEWER-CHIEF MINISTER Unavailable [phone] Stephanie Mahoney RN Unavailable Unavailable Alycia Galvan RN Unavailable UnavailRan Mejía MD Primary Care Provider Cesar Tavares MD Unavailable [phone] Karie Jones RN Unavailable Unavailable Joy Bob Unavailable Fanta Addison Weinstein PharmD Unavailable Unavailab le Reason for Visit * Radiology Services (Routine) - Closed Specialty Diagnoses / Procedures Referred By Deng t Referred To Contact Interventional Radiology Diagnoses Diffuse large B-cell lymphoma, unspecified body region (HCC) Procedures IR CENTRAL LINE REMOVAL Rafaela Sood APRN-CHIEF MINISTER [address] [place] [address] [facility] Ivr [address] [place] [address] Referral ID Status Reason Start Date Expiration Date Visits Re quested Visits Authorized [id number] Closed 11/11/2019 05/09/2020 1 1 Encounter Details Date Type Department Care Team (Latest Contact Info) Description 11/11/2019 1:46 PM CDT - 11/11/2019 11:59 PM CDT Hospital Encounter [facility] IVR [address] [place] [address] Rafaela Sood APRN-CNP Discharge Disposition: Home or Self Care Social [...] Sign Reading Time Taken Comments Blood Pressure 145/80 11/11/2019 1:37 PM CDT Pulse 91 11/11/2019 1:31 PM CDT irreg ular Temperature 37.1 ??C (98.7 ??F) 11/11/2019 1:37 PM CD T Respiratory Rate 16 11/11/2019 1:37 PM CDT Oxygen Saturation 97% 11/11/2019 1:37 PM CDT Inhaled Oxygen Concentration - - Weight 121.7 kg (268 lb 6.4 oz) 11/11/2019 1:37 PM CDT Height 170.2 cm (5' 7 ) 11/11/2019 1:42 PM CDT Body Mass Index 42.04 11/11/2019 1:37 PM CDT documented in this encounter Functional [...] No 10/13/2019 documented as of this encounter Discharge Instructions * Discharge Instructions* Kassandra Dykes MD - 11/11/2019 2:33 PM CDT INTERVENTIONAL NEPHROLOGY OUTPATIENT PHYSICIAN DISCHARGE ORDER Activity: No restrictions Post Moderate Sedation instructions: During the procedure, you received sedation medications that might linger in your system up to 24 hours after administration. Therefore, for the next 24 hours, [address]ot drive a car or use heavy equipment. An adult should drive you home and stay with you after you have had moderate sedation. Follow your caregiver's advice about making changes to your diet, activity, or medicine. Avoid hardexercise right after having moderate sedation. Do not drink alcoholic beverages, such as beer and wine etc. Do not make important decisions for 24 hours (one day) after having moderate sedation like big financial decisions, selling property, etc. Medications: See the after visit summary for a complete list. IF prescribed pain medications, do not take on an empty stomach. Do not drive, drink alcohol or operate machinery while taking medication. We have not made anychanges to your previously prescribed medications. Diet: Restrictions - none Dressing Care: Please keep dressing in place until being seen by your nurse. Wound Care: Please keep wound clean and dry. Instructions: If you have one or more of the following, please call your physician: A. Redness or swelling of the operative site. B. Persistent bleeding through bandage. C. Severe pain which is not relieved by oral pain medication. D. Temperature above 101 degrees or severe chilling. E. Foul odor of drainage. F. Other If you are unable to reach your physician with an urgent or severe problem: Call the emergency room at [phone]. Valuables returned: Yes Mode of transportation: Ambulatory Date: 11/11/2019 Time: 2:33 PM Physician: Dr. Dykes Patient or responsible person: the patient documented in this encounter Medications at Time [...] as of this encounter Progress Notes * Melida Beth RN - 11/11/2019 2:30 PM CDT Admitted to timber 2. A&Ox4. HR irregular patients he had a history of Afib years ago. No labs needed. * Roro Engle RN - 11/11/2019 2:30 PM CDT Appt confirmed with pt. 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 Pt aware of visitor resrtictions in place and screening on arrival. * Josiah Kim RN - 11/11/2019 2:30 PM CDT Pt is awake and alert GCS 15. Breathing is regular and nonlabored. Skin is warm and dry. Gait is steady with no assistance. Proper discharge clothing. Discharge teaching successful as evidence by no further questions/concerns/needs. Pt ready for discharge. Patient ambulatory on discharge. documented in this encounter Plan of Treatment Upcoming Encounters Date Type Department Care Team (Late st Contact Info) Description 08/26/2024 11:00 AM EXTRUSION PRESS OPERATOR Office Visit [facility] - Pulmonology [address] [place] [address], [place] [address] Andrew Francis MD [address] [place] [address] 2L DIV OF PULMONARY/[place] [address] documented as of this encounter Visit Diagnoses Diagnosis Diffuse large B-cell lymphoma, unspecified body region (HCC) documented in this encounter Care Teams Oil Spot Washer Relationship Specialty Start Date End Date Ran Nuñez MD [address] [place] [address] PCP - General Family Medicine 03/22/19 12/22/20 Hillary Apple MD [address] [place] [address] Hematology and Oncology 03/17/19 Bill Ferrera MD [address] [place] [address] Hematology and Oncology 03/17/19 08/27/21 Tony Dumont MD [address] [place] [address] Hematology and Oncology 03/17/19 Maryjo Reinoso, WARP COILER Hoop Riveting Machine Operator Helper 03/17/19 Madyson Clay, PharmD 03/17/19 Dana Lala, LACE SEWER-ACCOUNT SUPPORT REP [address] [place], [place] [address]TA [facility] 2nd [place] [address] Oncology 03/17/19 Tiffanie Nguyen, LACE SEWER-CHIEF MINISTER [address] [place], [place] [address]TA [facility] 2nd [place] [address] Family Medicine 03/17/19 Stephanie Mahoney, RN Registered Nurse 03/17/19 10/29/21 Alycia Galvan, ROSEMARY 03/17/19 10/29/21 Cesar Tavares MD [address] [place] [address] Referring Physician Medical Oncology 03/23/19 Karie Jones, RN Registered Nurse 06/08/19 10/29/21 Joy Bob 09/22/19 Addison Shea, PharmD Pharmacist 09/22/19 10/29/21 documented as of this encounter
--- OUTSIDE RECORDS SUMMARY | 2024-08-18 00:30 | XMS_ITS | Encounter Summary ---
Author Organization [facility] Address [address] [facility] [place] [address] Care Team Providers Care Fisher Dip Net Name Role Phone Hillary Apple MD Unavailable [phone] Bill Ferrera MD Unavailable [phone] Tony Dumont MD Unavailable [phone] Maryjo ReinosoW Unavailable Unavailable Madyson Clay PharmD Unavailable Unavaila Dana Galicia MEAT SERVICE TEAM MEMBER-HAT SIZER Unavailable [phone] Tiffanie Nguyen APRN-GLASS OR MIRROR INSPECTOR Unavailable [phone] Stephanie Mahoney RN Unavailable Unavailable Alycia Galvan RN Unavailable UnavailRan Mejía MD Primary Care Provider Cesar Tavares MD Unavailable [phone] Karie Jones RN Unavailable Unavailable Joy Bob Unavailable Fanta Addison Weinstein PharmD Unavailable Unavailab le Encounter Details Date Type Department Care Team (Late st Contact Info) Description 11/10/2019 Orders Only [facility] B[facility] CLINIC [address] [place] [address] Tiffanie Nguyen APRN-GLASS OR MIRROR INSPECTOR [address] [place] [address] Diffuse large B-cell lymphoma, unspecified body region [...] st Contact Info) Description 08/26/2024 11:00 AM RUG DRY ROOM ATTENDANT Office Visit [facility] - Pulmonology [address] [place] [address], [place] [address] Andrew Francis MD [address] [place] [address] DIV OF PULMONARY/[place] [address] documented as of this encounter Visit Diagnoses Diagnosis Diffuse large B-cell lymphoma, unspecified body region (HCC)- Primary documented in this encounter Care Teams Fisher Dip Net Relationship Specialty Start Date End Date Ran Nuñez MD [address] [place] [address] PCP - General Family Medicine 03/22/19 12/22/20 Hillary Apple MD [address] [place] [address] Hematology and Oncology 03/17/19 Bill Ferrera MD [address] [place] [address] Hematology and Oncology 03/17/19 08/27/21 Tony Dumont MD [address] [place] [address] Hematology and Oncology 03/17/19 Maryjo Reinoso, NUT ROASTER Head Housekeeper 03/17/19 Madyson Clay, PharmD 03/17/19 Dana Lala, MEAT SERVICE TEAM MEMBER-HAT SIZER [address] [place] [address] 2nd [place] [address] Oncology 03/17/19 Tiffanie Nguyen, MEAT SERVICE TEAM MEMBER-GLASS OR MIRROR INSPECTOR [address] [place] [address] 2nd [place] [address] Family Medicine 03/17/19 Stephanie Mahoney, RN Registered Nurse 03/17/19 10/29/21 Alycia Galvan, RN 03/17/19 10/29/21 Cesar Tavares MD [address] [place] [address] [place] [address] Referring Physician Medical Oncology 03/23/19 Karie Jones, RN Registered Nurse 06/08/19 10/29/21 Joy Bob 09/22/19 Addison Shea, PharmD Pharmacist 09/22/19 10/29/21 documented as of this encounter
--- OUTSIDE RECORDS SUMMARY | 2024-08-18 00:30 | XMS_ITS | Encounter Summary ---
Author Organization [facility] Address [address] [facility] [place] [address] Care Team Providers Care Roller Checker Name Role Phone Hillary Apple MD Unavailable [phone] Bill Ferrera MD Unavailable [phone] Tony Dumont MD Unavailable [phone] Maryjo Reinoso [facility] Unavailable Unavailable Madyson Clay PharmD Unavailable Unavaila Dana Galicia CIGARETTE VENDOR-FLYER BUILDER Unavailable [phone] Tiffanie Nguyen CIGARETTE VENDOR-MERCHANDISE PRESENTATION ASSOCIATE Unavailable [phone] Stephanie Mahoney RN Unavailable Unavailable Alycia Galvan RN Unavailable UnavailRan Mejía MD Primary Care Provider Cesar Tavares MD Unavailable [phone] Karie Jones RN Unavailable Unavailable Joy Bob Unavailable Fanta Addison Weinstein PharmD Unavailable Unavailab Alida Chang CIGARETTE VENDOR-MERCHANDISE PRESENTATION ASSOCIATE Primary Care Provider Ran Nuñez MD Primary Care Provider Tony Dumont MD Unavailable [phone] Shalini Segal MD Unavailable [phone] Stefanie Burns RN Unavailable Unavaila Fatemeh Kelly RN Unavailable Unavailable Glenn Hernandez MD Unavailable Chandana Lu MD Unavailable Encounter Details Date Type Department Care Team (Late st Contact Info) Description 02/10/2020 Telephone [facility]IC [address] [place] [address] Stephanie Mahoney RN Social History Tobacco Use Types Packs/Day [...] encounter Miscellaneous Notes * Telephone Encounter - Stephanie Mahoney RN - 02/10/2020 10:11 AM CDT Called patient to go over pre-procedure instructions and apt time. Patient did state recent COVID exposure and still having a fever and loose stool as of last night. Notified BMT PARTS ADVISOR Tiffanie and we are going to hold off on the biopsy. We will call patient and to reschedule next week. Patient verbalizedunderstanding. documented in this encounter Plan of Treatment Upcoming Encounters Date Type Department Care Team (Late st Contact Info) Description 08/26/2024 11:00 AM RESERVATIONS SPECIALIST Office Visit [facility] - Pulmonology [address] [facility], [place] [address] Andrew Francis MD [address] [place] [address] 2L DIV OF PULMONARY/[place] [address] documented as of this encounter Visit Diagnoses [...] COVID-19 Confirmed 03/06/2020 07/14/2020 0 4:33 AM RESERVATIONS SPECIALIST COVID-19 Under Investigation 03/07/2020 03/07/2020 03/09/2020 8:54 AM CDT COVID-19 Under Investigation 03/29/2020 03/29/2020 03/30/2020 9:42 AM CDT COVID-19 Confirmed 08/31/2020 08/31/2020 1 4:34 AM RESERVATIONS SPECIALIST COVID-19 Confirmed 09/28/2020 09/28/2020 1 4:33 AM RESERVATIONS SPECIALIST COVID-19 Under Investigation 11/16/2020 11/16/2020 11/16/2020 6:52 PM CDT COVID-19 Confirmed 11/16/2020 11/16/2020 1 4:35 AM CDT COVID-19 Under Investigation 12/20/2020 12/20/2020 12/20/2020 6:23 PM CDT COVID-19 Under Investigation 04/21/2021 04/21/2021 2021 6:42 AM CDT documented as of this encounter Care Teams Roller Checker Relationship Specialty Start Date End Date Ran Nuñez MD [address] [place] [address] PCP - General Family Medicine 03/22/19 12/22/20 Alida Marshall APRN-MERCHANDISE PRESENTATION ASSOCIATE [address] [facility] [place] [address] PCP - General Family Medicine 12/23/20 08/29/21 Ran Nuñez MD [address] [place] [address] PCP - General Family Medicine 08/30/21 [place] [address] [place] [address] [facility] [place] 03/04/23 08/21/23 Hillary Apple MD [address] [place] [address] Hematology and Oncology 03/17/19 Bill Ferrera MD [address] [place] [address] Hematology and Oncology 03/17/19 08/27/21 Tony Dumont MD [address] [place] [address] Hematology and Oncology 03/17/19 Maryjo Reinoso, FOOD AND BEVERAGE OUTLETS MANAGER Bookmobile Librarian 03/17/19 Madyson Clay, PharmD 03/17/19 Dana Lala, CIGARETTE VENDOR-FLYER BUILDER [address] [facility] 2nd [place] [address] Oncology 03/17/19 Patrick Tiffanie [place], CIGARETTE VENDOR-MERCHANDISE PRESENTATION ASSOCIATE [address] [facility] [place] [address] Family Medicine 03/17/19 Stephanie Mahoney, RN Registered Nurse 03/17/19 10/29/21 Alycia Galvan, RN 03/17/19 10/29/21 Cesar Tavares MD [address] [place] [address] [place] [address] Referring Physician Medical Oncology 03/23/19 Karie Jones, RN Registered Nurse 06/08/19 10/29/21 Joy Bob 09/22/19 Addison Shea, PharmD Pharmacist 09/22/19 10/29/21 Tony Dumont MD [address] [place] [address] Hematology and Oncology 10/30/21 Shalini Segal MD [address] [facility] [place] [address] Clay Pigeon Setter/Oncologis t Hematology and Oncology 10/30/21 Stefanie Burns, RN Registered Nurse 10/30/21 Fatemeh Bolaños, RN Registered Nurse 10/30/21 Chandana Lu MD [address] [place] [address] Orthopedic Surgery 03/30/24 documented as of this encounter
--- OUTSIDE RECORDS SUMMARY | 2024-08-18 00:30 | XMS_ITS | Encounter Summary ---
Author Organization [facility] Address [address] [facility] [place] [address] Care Team Providers Care Vp Director Of Finance Name Role Phone Hillary Apple MD Unavailable [phone] Bill Ferrera MD Unavailable [phone] Tony Dumont MD Unavailable [phone] Maryjo ReinosoW Unavailable Unavailable Madyson Clay PharmD Unavailable Unavaila Dana Galicia DRAPERY HEAD FORMER-CHAINMAN Unavailable [phone] Tiffanie Nguyen DRAPERY HEAD FORMER-TOOLING SPECIALIST Unavailable [phone] Stephanie Mahoney RN Unavailable Unavailable Alycia Galvan RN Unavailable UnavailRan Mejía MD Primary Care Provider Cesar Tavares MD Unavailable [phone] Karie Jones RN Unavailable Unavailable Joy Bob Unavailable Fanta Addison Weinstein PharmD Unavailable Unavailab le Encounter Details Date Type Department Care Team (Latest Contact Info) Description 10/30/2019 Travel Social History Tobacco Use Types Packs/Day [...] st Contact Info) Description 08/26/2024 11:00 AM MASH PREPARATORY OPERATOR Office Visit [facility] - Pulmonology [address] [place] [address], [place] [address] Andrew Francis MD [address] [place] [address] 2L DIV OF PULMONARY/[place] [address] documented as of this encounter Visit Diagnoses Not on filedocumented in this encounter Care Teams Vp Director Of Finance Relationship Specialty Start Date End Date Ran Nuñez MD [address] [place] [address] PCP - General Family Medicine 03/22/19 12/22/20 Hillary Apple MD [address] [place] [address] Hematology and Oncology 03/17/19 Bill Ferrera MD [address] [place] [address] Hematology and Oncology 03/17/19 08/27/21 Tony Dumont MD [address] [place] [address] Hematology and Oncology 03/17/19 Maryjo Reinoso, PRIMARY OPERATOR Auditor Appraiser 03/17/19 Madyson Clay, PharmD 03/17/19 Dana Lala, DRAPERY HEAD FORMER-CHAINMAN [address] [facility] 2nd [place] [address] Oncology 03/17/19 Tiffanie Nguyen, DRAPERY HEAD FORMER-TOOLING SPECIALIST [address] [place] [address] Family Medicine 03/17/19 Stephanie Mahoney RN Registered Nurse 03/17/19 10/29/21 Alycia Galvan, ROSEMARY 03/17/19 10/29/21 Cesar [place] [address] Referring Physician Medical Oncology 03/23/19 Karie Jones, RN Registered Nurse 06/08/19 10/29/21 Joy Bob 09/22/19 Addison Shea, PharmD Pharmacist 09/22/19 10/29/21 documented as of this encounter
--- OUTSIDE RECORDS SUMMARY | 2024-08-18 00:30 | XMS_ITS | Encounter Summary ---
Author Organization [facility] Address [address] [place] [place] [address] Care Team Providers Care Delivery Representative Name Role Phone Hillary Apple MD Unavailable [phone] Bill Ferrera MD Unavailable [phone] Tony Dumont MD Unavailable [phone] Maryjo Reinoso [facility] Unavailable Unavailable Madyson Clay PharmD Unavailable Unavaila Dana Galicia ADMINISTRATIVE INTERN-NIGHT FILLER Unavailable [phone] Tiffanie Nguyen ADMINISTRATIVE INTERN-VACUUM REPAIRER Unavailable [phone] Stephanie Mahoney RN Unavailable Unavailable Alycia Galvan RN Unavailable UnavailRan Mejía MD Primary Care Provider Cesar Tavares MD Unavailable [phone] Karie Jones RN Unavailable Unavailable Joy Bob Unavailable Fanta Addison Weinstein PharmD Unavailable Unavailab le Encounter Details Date Type Department Care Team (Late st Contact Info) Description 10/29/2019 [facility] [address] [place] [address] Hillary Apple MD [address] [facility] [place] [place] [address] Social History Tobacco Use Types Packs/Day Years [...] st Contact Info) Description 08/26/2024 11:00 AM DIGITAL STRATEGIST Office Visit [facility] - Pulmonology [address] [place] [address], [place] [address] Andrew Francis MD [address] [place] [address] 2L DIV OF PULMONARY/[place] [address] documented as of this encounter Visit Diagnoses Not on filedocumented in this encounter Care Teams Delivery Representative Relationship Specialty Start Date End Date Ran Nuñez MD [address] [place] [address] PCP - General Family Medicine 03/22/19 12/22/20 Hillary Apple MD [address] [place] [address] Hematology and Oncology 03/17/19 Bill Ferrera MD [address] [place] [address] Hematology and Oncology 03/17/19 08/27/21 Tony Dumont MD [address] [place] [address] Hematology and Oncology 03/17/19 Maryjo Reinoso, FIRE CONTROL TECHNICIAN B Torpedo Specialist 03/17/19 Madyson Clay, PharmD 03/17/19 Dana Lala, ADMINISTRATIVE INTERN-NIGHT FILLER [address] [facility] 2[place] [address] Oncology 03/17/19 Tiffanie Nguyen, ADMINISTRATIVE INTERN-VACUUM REPAIRER [address] [place] [address] Family Medicine 03/17/19 Stephanie Mahoney, RN Registered Nurse 03/17/19 10/29/21 Alycia Galvan, RN 03/17/19 10/29/21 Cesar Tavares MD [address] [place] [address] [place] [address] Referring Physician Medical Oncology 03/23/19 Karie Jones, RN Registered Nurse 06/08/19 10/29/21 Joy Bob 09/22/19 Addison Shea, PharmD Pharmacist 09/22/19 10/29/21 documented as of this encounter
--- OUTSIDE RECORDS SUMMARY | 2024-08-18 00:30 | XMS_ITS | Encounter Summary ---
Author Organization [facility] Address [address] [facility] [place] [address] Care Team Providers Care Physician Internist Name Role Phone Hillary Apple MD Unavailable [phone] Bill Ferrera MD Unavailable [phone] Tony Dumont MD Unavailable [phone] Maryjo Reinoso [facility] Unavailable Unavailable Madyson Clay PharmD Unavailable Unavaila Dana Galicia HIP HOP ARTIST-MANAGER OF INTERNAL AUDIT Unavailable [phone] Tiffanie Nguyen HIP HOP ARTIST-CONVERTIBLE POWER SHOVEL OPERATOR Unavailable [phone] Stephanie Mahoney RN Unavailable Unavailable Alycia Galvan RN Unavailable UnavailRan Mejía MD Primary Care Provider Cesar Tavares MD Unavailable Karie Jones RN Unavailable Unavailable Joy Bob Unavailable Fanta Addison Weinstein PharmD Unavailable Unavailab le Encounter Details Date Type Department Care Team (Late st Contact Info) Description 11/05/2019 Telephone [facility] B[facility] CLINIC [address] [place] [address] Karie Jones, RN Social History [...] Telephone Encounter - Karie Jones RN - 11/05/2019 3:[address] Tavares's office and updated them on how well Aurelio is doing. Informed them that we are pulling his line on 11/10 and releasing him 11/14. Made appointment for follow-up at their office for December 01. at 1:00. Will update them on his disease reassessment dates. documented in this encounter Plan of Treatment Upcoming Encounters Date Type Department Care Team (Late st Contact Info) Description 08/26/2024 11:00 AM ADULT LITERACY INSTRUCTOR Office Visit [facility] - Pulmonology [address] [place] [address], [place] [address] Andrew Francis MD [address] [place] [address] 2L DIV OF PULMONARY/[place] [address] documented as of this encounter Visit Diagnoses Not on filedocumented in this encounter Care Teams Physician Internist Relationship Specialty Start Date End Date Ran Nuñez MD [address] [place] [address] PCP - General Family Medicine 03/22/19 12/22/20 Hillary Apple MD [address] [place] [address] Hematology and Oncology 03/17/19 [place] [address] [place] [address] Hematology and Oncology 03/17/19 08/27/21 Tony Dumont MD [address] [place] [address] Hematology and Oncology 03/17/19 Maryjo Reinoso, LADLE PATCHER Brood Hatchery Manager 03/17/19 Madyson Clay, PharmD 03/17/19 Dana Lala, HIP HOP ARTIST-MANAGER OF INTERNAL AUDIT [address] [facility] 2nd [place] [address] Oncology 03/17/19 Tiffanie Nguyen, HIP HOP ARTIST-CONVERTIBLE POWER SHOVEL OPERATOR [address] [facility] 2nd [place] [address] Family Medicine 03/17/19 Stephanie Mahoney, RN Registered Nurse 03/17/19 10/29/21 Alycia Galvan, ROSEMARY 03/17/19 10/29/21 Cesar Tavares MD [address] [place] [address] Referring Physician Medical Oncology 03/23/19 Karie Jones, ROSEMARY Registered Nurse 06/08/19 10/29/21 Joy Bob 09/22/19 Addison Shea, PharmD Pharmacist 09/22/19 10/29/21 documented as of this encounter
--- OUTSIDE RECORDS SUMMARY | 2024-08-18 00:30 | XMS_ITS | Encounter Summary ---
Author Organization [facility] Address [address] [place] [address] Care Team Providers Care Wash Crew Person Name Role Phone Hillary Apple MD Unavailable [phone] Bill Ferrera MD Unavailable [phone] Tony Dumont MD Unavailable [phone] Maryjo Reinoso UTILITY PORTER Unavailable Unavailable Mdayson Clay PharmD Unavailable Unavaila Dana Galicia MAMMOGRAPHY TECHNICIAN-MATTING PRESS TENDER Unavailable + [phone] Tiffanie Nguyen APRN-SALES FLOOR TEAM LEADER Unavailable [phone] Stephanie Mahoney RN Unavailable Unavailable Alycia Galvan RN Unavailable UnavailRan Mejía MD Primary Care Provider Cesar Tavares MD Unavailable [phone] Karie Jones RN Unavailable Unavailable Joy Bob Unavailable Fanta Addison Weinstein PharmD Unavailable Unavailab le Reason for Visit * Oncology Prior Authorization (Routine) - Closed Specialty Diagnoses / Procedures Referred By Contjohn t Referred To Contact Diagnoses Diffuse large B-cell lymphoma, unspecified body region (HCC) Procedures [place] ALTEPLASE RECOMBINANT Tiffanie Nguyen APRN-SALES FLOOR TEAM LEADER [address] [place] [address] [facility] [address] [place] [address] Referral ID Status Reason Start Date Expiration Date Visits Re quested Visits Authorized [id number] Closed 05/24/2019 11/20/2019 1 1 Encounter Details Date Type Department Care Team (Latest Contact Info) Description 11/01/2019 8:40 AM CDT - 11/01/2019 11:59 PM CDT Hospital Encounter [facility] [address] [place] [address] Bill Ferrera MD [address] [place] [address] Tiffanie Nguyen, MAMMOGRAPHY TECHNICIAN-SALES FLOOR TEAM LEADER [address] [place] [id number] Discharge Disposition: Home or Self Care Social [...] Sign Reading Time Taken Comments Blood Pressure 151/81 11/01/2019 9:02 AM CDT Pulse 93 11/01/2019 9:02 AM CDT Temperature 36.8 ??C (98.3 ??F) 11/01/2019 9:02 AM CD T Respiratory Rate 16 11/01/2019 9:02 AM CDT Oxygen Saturation 100% 11/01/2019 9:02 AM CDT Inhaled Oxygen Concentration - - Weight 121.9 kg (268 lb 11.2 oz) 11/01/2019 9:02 AM CDT Height - - Body Mass Index 41.46 10/13/2019 3:13 PM CDT documented in this [...] this encounter Progress Notes * Tiffanie Nguyen, MAMMOGRAPHY TECHNICIAN-SALES FLOOR TEAM LEADER - 11/01/2019 9:00 AM CDT Autologous Hematopoietic Stem Cell Daily Note: PATIENT IDENTIFIERS: MARCELLO LUIS is a 49 year old male who is Day +12 (Day 0 is 10/20/19) of an autologous peripheral blood stem cell transplant with a 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 INTERVAL HISTORY: Aurelio presents to clinic ambulatory Doing great, No F/C/N/V/D Eating and drinking, altered taste buds Soft BMs, no abdominal cramping No SOB or chest pain No lightheadedness or dizziness ROS: A comprehensive [...] lock flush injection 500 Units VITALS: Vitals: 11/01/19 0902 BP: 151/81 Pulse: 93 Resp: 16 Temp: 98.3 ??F SpO2: 100% Weight: 121.9 kg (268 lb 11.2 oz) Wt Readings from Last 3 Encounters: 11/01/19 121.9 kg (268 lb 11.2 oz) 10/30/19 121.7 kg (268 lb 4.8 oz) 10/29/19 120.5 kg (265 lb 9.6 oz) PHYSICAL EXAM: Physical Examination: General appearance - [...] stated tenderness LABS: Recent Labs Component Name 11/01/19 0909 [...] - - 0.7 0.5 0.8 NEUTABS - 5.60 0.60* 0.02* - 0.01* - 0.01* - 5.3 6.0 8.3* LYMPHS - 1.30 0.39* 0.33* - 0.18* - 0.25* - 0.1* 0.3* 0.4* MONO - 1.90* 0.45 0.16 - 0.01* - - - 0.02* 0.14 0.49 EOS - - 0.02 0.01 - 0.00 - 0.04 - 0.00 0.00 0.00 BASO - - - - - - - - - 0.00 0.00 0.00 TOTCELLCNT - 100 100 100 - 100 - 100 - - - - - = values in this interval not displayed. Recent Labs Component Name 11/01/19 0909 10/30/19 11110/29/19 0002 BUN 8 13 11 CREATININE 0.8 [...] Recent Labs Component Name 11/01/19 0909 10/30/19 11110/29/19 0002 MAGNESIUM 1.8 1.8 1.8 Recent Labs Component Name 11/01/19 0909 10/30/19 1115 10/29/19 0002 PHOS 2.9 3.0 3.5 Routine Monitoring: CMV (weekly starting day 0): 10/25/19 - ND; 11/01/19 pending ASSESSMENT/PLAN: MARCELLO LUIS is a 49 year old male, who is Day +12 (Day 0 is 10/20/19) of an autologous [...] Engraftment: ANC day +9 (10/29/19) >plt engraftment likely 11/03/19 (day +14; last platelet transfusion day +7--10/27/19) OI prophylaxis: Bacterial:??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 PJP:??Bactrim DS MWF Viral: ACV 800 mg BID Back pain -likely 2/2 growth factor as he had similar back pain with collection -nearly resolved -oxy PRN Anxiety/Depression - Lexapro 10 mg daily Restless Leg Syndrome - Requip 0.25 mg QHS Right IJ venous clot 09/27/19 - resume Eliquis 5 mg BID Discharge Planning: Patients preferred contact information: cell Caregiver: sister, girlfriend Preferred D/C Pharmacy: [facility] Intended lodging: home Referring provider: Cesar Tavares Disposition: RTC for MIGUEL visit with basic labs MISSY [facility] documented in this encounter Plan of Treatment Upcoming Encounters Date Type Department Care Team (Late st Contact Info) Description 08/26/2024 11:00 AM PANTS CLOSER Office Visit [facility] - Pulmonology [address] [place] [address], [place] [phone] Andrew Francis MD [address] [place] [address] [address] DIV OF PULMONARY/[place] [address] documented as of this encounter Procedures Procedure Name Priority Date/Time Associated Diagnosis Comments CYTOMEGALOVIRUS (CMV) QUANTITATIVE PLASMA Routine 11/01/2019 9:09 AM CDT Diffuse large B-cell lymphoma, unspecified body region (HCC) DIFFERENTIAL MANUAL STAT 11/01/2019 9 :09 AM CDT Diffuse large B-cell lymphoma, unspecified body region (HCC) CBC W AUTO DIFFERENTIAL STAT 11/01/19 20 9:09 AM CDT Diffuse large B-cell lymphoma, unspecified body region (HCC) COMPREHENSIVE METABOLIC PANEL STAT 11/01/2019 9:09 AM CDT Diffuse large B-cell lymphoma, unspecified body region (HCC) PHOSPHORUS BLOOD STAT 11/01/2019 9:09 AM CDT Diffuse large B-cell lymphoma, unspecified body region (HCC) MAGNESIUM BLOOD STAT 11/01/2019 9:09 AM CDT Diffuse large B-cell lymphoma, unspecified body region (HCC) documented in this encounter Results * (ABNORMAL) DIFFERENTIAL MANUAL (11/01/2019 9:09 AM CDT) WBC (corrected for NRBC) 8.4 10? 3 /uL 11/01/2019 10:18 AM [facility] Total Cell Count 100 11/01/19 20 10:18 AM [facility] Neutrophils Absolute Manual 3.78 1.60 - 7.00 10? 3 /uL 11/01/2019 10:18 AM [facility] Comment:(BANDS+SEGS) x WBC = NEUT # (ANC) Lymphocyte Absolute Manual 1.09 0.80 - 2.90 10? 3 /uL 11/01/2019 10:18 AM [facility] Monocytes Absolute Manual 2.18(H) 0.14 - 0.66 10? 3 /uL 11/01/2019 10:18 AM [facility] Basophil Absolute Manual 0.08(H) 0.00 - 0.06 10? 3 /uL 11/01/2019 10:18 AM [facility] Band % Manual 8 0 - 10 % 11/01/2019 10:18 AM [facility] Neutrophil % Manual 37 30 - 60 % 11/01/2019 10:18 AM [facility] Lymphocyte % Manual 13(L) 20 - 45 % 11/01/2019 10:18 AM CDT [facility] Monocytes % Manual 26(H) 2 - 10 % 11/01/2019 10:18 AM CDT [facility] Basophils % Manual 1 0 - 3 % 11/01/2019 10:18 AM CDT [facility] Atypical Lymphocyte % Manual 1(H) 0 % 11/01/2019 10:18 AM CDT [facility] Metamyelocyte % Manual 8(H) 0 % 11/01/2019 10:18 AM CDT [facility] Myelocytes % Manual 5(H) 0 % 11/01/2019 10:18 AM CDT [facility] Promyelocyte % Manual 1(H) 0 % 11/01/2019 10:18 AM T [facility] nRBC Manual 27(H) 0 /100 WBC 11/01/2019 10:18 AM [facility] Platelet Estimate Decreased (A) Adequate 11/01/2019 10:18 AM [facility] Anisocytosis 1+(A) None 11/01/2019 10:18 AM CDT [facility] Hypochromia 1+(A) None 11/01/2019 10:[facility] Polychromasia 1+(A) None 11/01/2019 10:18 AM [facility] Blank-[place] Bodies 1+(A) None 11/01/2019 10:18 AM [facility] Target Cells 1+(A) None 11/01/2019 10:18 AM [facility] Schistocytes Occasiona l(A) None 11/01/2019 10:18 AM [facility] Ovalocytes 1+(A) None 11/01/2019 10:18 AM [facility] Blood BLOOD SPECIMEN / Unknown Venipuncture / Unknown 11/01/2019 9:09 AM CDT 11/01/2019 9:14 AM CDT Tiffanie Nguyen MAMMOGRAPHY TECHNICIAN-SALES FLOOR TEAM LEADER LAB - HEMATOLOG Y ORDERABLES [address] [phone] * CYTOMEGALOVIRUS (CMV) QUANTITATIVE PLASMA (11/01/2019 9:09 AM CDT) CMV Quant by PCR, Interp Not Detected Not Detected 11/03/2019 2:44 PM CDT [facility] Blood BLOOD SPECIMEN / Unknown Venipuncture / Unknown 11/01/2019 9:09 AM CDT 11/01/2019 9:14 AM CDT Narrative [facility] - 11/03/2019 2:44 PM CDT The CMV DNA analysis utilized [...] FDA approved test methodology (Bartholomew RealTime CMV). Tiffanie Nguyen MAMMOGRAPHY TECHNICIAN-SALES FLOOR TEAM LEADER LAB - CHEMISTRY ORDERABLES [facility] [address] [place] [address], [facility] [phone] * PHOSPHORUS BLOOD (11/01/2019 9:09 AM CDT) Pathologist [facility] Phosphorus 2.9 2.3 - 4.7 mg/dL 11/01/2019 9:39 AM CDT [facility] Blood BLOOD SPECIMEN / Unknown Venipuncture / Unknown 11/01/2019 9:09 AM CDT 11/01/2019 9:14 AM CDT Tiffanie Nguyen [facility]MOGRAPHY [facility] LAB - CHEMISTRY ORDERABLES Performing Organization Address [facility]/ZIP Co de Phone Number [address] [phone] * MAGNESIUM BLOOD (11/01/2019 9:09 AM CDT) Magnesium 1.8 1.6 - 2.6 mg/dL 11/01/2019 9:39 AM [facility] Blood BLOOD SPECIMEN / Unknown Venipuncture / Unknown 11/01/2019 9:09 AM CDT 11/01/2019 9:14 AM CDT Tiffanie Nguyen [facility] LAB - CHEMISTRY ORDERABLES Performing Organization Address City/[facility]/ZIP Co de Phone Number [address] [phone] * (ABNORMAL) CBC W AUTO DIFFERENTIAL (11/01/2019 9:09 AM CDT) WBC 8.4 3.5 - 10.5 10? 3 /uL 11/01/2019 9:26 AM [facility] Comment:The WBC count is cor rected by the instrument for nRBC's RBC 3.46(L) 4.30 - 5.70 10? 6 /uL 11/01/2019 9:26 AM [facility] Hemoglobin 9.8(L) 13.5 - 17.5 g/dL 11/01/2019 9:26 AM [facility] Hematocrit 29.3(L) 39.0 - 50.0 % 11/01/2019 9:26 AM [facility] MCV 84.7 81.0 - 97.0 fL 11/01/2019 9:26 AM [facility] MCH 28.3 28.0 - 34.0 pg 11/01/2019 9:26 AM [facility] MCHC 33.4 32.0 - 36.0 g/dL 11/01/2019 9:26 AM [facility] Platelet Count 105(L) 150 - 400 10? 3 /uL 11/01/2019 9:26 AM [facility] Comment:Confirmed by repeat analysis. RDW-SD 49.8 36.0 - 50.0 fL 11/01/2019 9:26 AM [facility] RDW-CV 16.4(H) 11.2 - 14.8 % 11/01/2019 9:26 AM [facility] MPV 11.7 9.3 - 12.8 fL 11/01/2019 9:26 AM [facility] nRBC Absolute 2.73(H) 0 10? 3 /uL 11/01/2019 9:26 AM [facility] nRBC Auto 32.6(H) 0 /100 WBC 11/01/2019 9:26 AM [facility] Blood BLOOD SPECIMEN / Unknown Venipuncture / Unknown 11/01/2019 9:09 AM CDT 11/01/2019 9:14 AM CDT Tiffanie Nguyen MAMMOGRAPHY TECHNICIAN-SALES FLOOR TEAM LEADER LAB - HEMATOLOG Y ORDERABLES Performing Organization Address City/State/[facility] Co de Phone Number [address] [phone] * (ABNORMAL) COMPREHENSIVE METABOLIC PANEL (11/01/2019 9:09 AM CDT) BUN 8 7 - 26 mg/dL 11/01/2019 9:39 AM [facility] Creatinine 0.8 0.6 - 1.2 mg/dL 11/01/2019 9:39 AM [facility] Sodium 140 136 - 145 mmol/L 11/01/2019 9:39 AM [facility] Potassium 4.1 3.5 - 4.5 mmol/L 11/01/2019 9:39 AM [facility] Chloride 104 98 - 107 mmol/L 11/01/2019 9:39 AM [facility] CO2 27 22 - 29 mmol/L 11/01/2019 9:39 AM [facility] Glucose 99 70 - 115 mg/dL 11/01/2019 9:39 AM [facility] Calcium 9.4 8.4 - 10.2 mg/dL 11/01/2019 9:39 AM [facility] Protein Total 6.3 6.0 - 8.3 g/dL 11/01/2019 9:39 AM [facility] Albumin 3.2(L) 3.4 - 5.0 g/dL 11/01/2019 9:39 AM [facility] Bilirubin Total 0.3 0.2 - 1.2 mg/dL 11/01/2019 9:39 AM [facility] Alkaline Phosphatase 124 40 - 150 Units/L 11/01/2019 9:39 AM [facility] ALT 47 0 - 55 Units/L 11/01/2019 9:39 AM [facility] AST 25 5 - 34 Units/L 11/01/2019 9:39 AM [facility] Anion Gap 13 8 - 18 11/01/2019 9:39 AM [facility] BUN/Creatinine Ratio 10 7 - 23 11/01/2019 9:39 AM [facility] Osmolality Calculated 288 270 - 300 mOsm/kg 11/01/2019 9:39 AM [facility] Albumin/Globulin Ratio 1.0(L) 1.1 - 2.3 11/01/2019 9:39 AM [facility] eGFR >60 >60 mL/min/1.7 3 m2 11/01/2019 9:39 AM [facility] Blood BLOOD SPECIMEN / Unknown Venipuncture / Unknown 11/01/2019 9:09 AM [facility] 11/01/2019 9:14 AM [facility] Tiffanie Nguyen MAMMOGRAPHY TECHNICIAN-SALES FLOOR TEAM LEADER LAB - CHEMISTRY ORDERABLES Performing Organization Address City/State/[facility] Co de Phone Number [facility] [address] [phone] documented in this encounter Visit Diagnoses Diagnosis Diffuse large B-cell lymphoma, unspecified body region (HCC)- Primary 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 Back pain, unspecified back location, unspecified back pain laterality, unspecified chronicity documented in this encounter Administered Medications Inactive Administered Medications - up to 3 most recent administrations Medication Order MAR Action Action Date Dose Rate Site heparin lock flush injection 500 Units 500 Units, Intracatheter, PRN, Other, Site maintenance, Starting on Fri11/01/19 at 0807, Until Fri11/01/19 at 2006 $ Given 11/01/2019 9:44 AM CDT 500 Units $ Given 11/01/2019 9:42 AM CDT 500 Units $ Given 11/01/2019 9:41 AM CDT 500 Units documented in this encounter Care Teams Wash Crew Person Relationship Specialty Start Date End Date Ran Nuñez MD [address] [place] [address] PCP - General Family Medicine 03/22/19 12/22/20 Hillary Apple MD [address] [place] [address] Hematology and Oncology 03/17/19 Bill Ferrera MD [address] [place] [address] Hematology and Oncology 03/17/19 08/27/21 Tony Dumont MD [address] [place] [address] Hematology and Oncology 03/17/19 Maryjo Reinoso, UTILITY PORTER Research Worker Kitchen 03/17/19 Madyson Clay, PharmD 03/17/19 Dana Lala, MAMMOGRAPHY TECHNICIAN-MATTING PRESS TENDER [address] [place] [address] [address] [address] Oncology 03/17/19 Tiffanie Nguyen, MAMMOGRAPHY TECHNICIAN-SALES FLOOR TEAM LEADER [address] [place] [address] [address] [address] Family Medicine 03/17/19 Stephanie Mahoney, RN Registered Nurse 03/17/19 10/29/21 Alycia Galvan, ROSEMARY 03/17/19 10/29/21 Cesar Tavares MD [address] [place] [address] Referring Physician Medical Oncology 03/23/19 Karie Jones, ROSEMARY Registered Nurse 06/08/19 10/29/21 Joy Bob 09/22/19 Addison Shea, PharmD Pharmacist 09/22/19 10/29/21 documented as of this encounter
--- OUTSIDE RECORDS SUMMARY | 2024-08-18 00:31 | XMS_ITS | Encounter Summary ---
Author Organization [facility] Address [address] [facility] [place] [address] Care Team Providers Care Soaker Hides Name Role Phone Hillary Apple MD Unavailable [phone] Bill Ferrera MD Unavailable [phone] Tony Dumont MD Unavailable [phone] Maryjo Reinoso [facility] Unavailable Unavailable Madyson Clay PharmD Unavailable Unavaila Dana Galicia APPLICATIONS SYSTEMS ENGINEER-GROUND SUPPORT EQUIPMENT FITTER Unavailable [phone] Tiffanie Nguyen APRN-LATHE OPERATOR Unavailable [phone] Stephanie Mahoney RN Unavailable Unavailable Alycia Galvan RN Unavailable UnavailRan Mejía MD Primary Care Provider Cesar Tavares MD Unavailable [phone] Karie Jones RN Unavailable Unavailable Joy Bob Unavailable Fanta Addison Weinstein PharmD Unavailable Unavailab le Encounter Details Date Type Department Care Team (Latest Contact Info) Description 09/30/2019 11:00 AM CONTINUOUS IMPROVEMENT INTERN - 09/30/2019 11:59 PM CONTINUOUS IMPROVEMENT INTERN Hospital Encounter [facility] [address] [place] [address] Tiffanie Nguyen APRN-LATHE OPERATOR [address] [place] [id number] Discharge Disposition: Home or Self Care Social [...] Sign Reading Time Taken Comments Blood Pressure 123/72 09/30/2019 11:12 AM CONTINUOUS IMPROVEMENT INTERN Pulse 94 09/30/2019 11:12 AM CONTINUOUS IMPROVEMENT INTERN Temperature 36.9 ??C (98.5 ??F) 09/30/2019 1 1:12 AM CONTINUOUS IMPROVEMENT INTERN Respiratory Rate 18 09/30/2019 11:1 2 AM CONTINUOUS IMPROVEMENT INTERN Oxygen Saturation 98% 09/30/2019 11: 12 AM CONTINUOUS IMPROVEMENT INTERN Inhaled Oxygen Concentration - - Weight 117.6 kg (259 lb 3.2 oz) 020 11:12 AM CONTINUOUS IMPROVEMENT INTERN Height - - Body Mass Index 40 09/21/2019 7:41 AM CONTINUOUS IMPROVEMENT INTERN documented in this encounter Functional Status Functional Status Response Date of Assess ment Is person deaf or have serious hearing difficult y? No 08/19/2019 Is person blind or have serious difficulty seein g? No 08/19/2019 Does person have serious dif ficulty walking/climbing stairs? No 08/19/2019 Does person have difficulty dressing/bathing? No 08/19/2019 Does person have difficulty doing errands alone? No 08/19/2019 Cognitive Status Response Date of Assessm ent Does person have difficulty concentrating/remembering/making decisions? No 08/19/2019 documented as of this encounter Medications at Time of Discharge Medication Sig Dispensed Refills Start Date End Date acetaminophen (TYLENOL) 325 MG tablet Take 2 tablets by mouth every 6 hours as needed for Fever or Pain Maximum allowable Acetaminophen amount = 4 Grams (4000 mg) / 24 hours. 08/18/2019 10/13/2019 acyclovir (ZOVIRAX) 400 MG tablet Take 1 tablet by mouth 2 times daily 60 tablet 11 05/24/2019 11/10/2019 Apixaban (ELIQUIS STARTER PACK) 5 MG tablet Take 10 mg by mouth twice daily for one week, then 5 mg mouth twice daily there after 1 package 09/27/2019 10/29/2019 apixaban (ELIQUIS) 5 MG tablet TAKE 10MG BY MOUTH TWICE DAILY FOR 7 DAYS. THEN, 5MG TABLET TWICE DAILY THEREAFTER DIRECTED. 09/27/2019 06/16/2020 BABY ASPIRIN PO Take 81 mg by mouth 10/28 diclofenac sodium EC (VOLTAREN) 75 MG tablet Take 75 mg by mouth 2 times daily 10/29/2019 docusate sodium (COLACE) 100 MG capsule Take 1 capsule by mouth 2 times daily 60 capsule 08/19/2019 10/13/2019 enoxaparin (LOVENOX) injection Inject 40 mg subcutaneously once daily 30 syringe 2 08/18/2019 10/13/2019 escitalopram (LEXAPRO) 10 MG tablet Take 1 tablet by mouth once daily 30 tablet 06/28/2019 07/03/2020 ibuprofen (MOTRIN) 600 MG tablet Take 1 tablet by mouth every 6 hours 08/18/2019 10/13/2019 Lansoprazole (PREVACID PO) Take by mouth as needed 06/2020 lidocaine-prilocain e (EMLA) 2.5-2.5 % cream Apply to port site 30-60 mins before use. 04/24/2017 0 ondansetron, disintegrating, (ZOFRAN ODT) 8 MG tablet Dissolve 1 tablet on top of tongue then swallow with saliva every 8 hours as needed for nausea or vomiting 04/19/2019 2 penicillin v potassium (VEETIDS) 250 MG tablet Take 1 tablet by mouth 2 times daily 60 tablet 5 08/11/2019 03/13/2021 polyethylene glycol 3350 (MIRALAX) packet Take 17 g by mouth once daily as needed for Constipation 10/29/2019 prochlorperazine (COMPAZINE) 10 MG tablet Take 10 mg by mouth every 6 hours as needed 04/27/2019 12/21/19 22 documented as of this encounter Progress Notes * Tiffanie Nguyen, JOSE DAVID-ERIKA - 09/30/2019 11:00 AM CST Autologous Hematopoietic Stem Cell Daily Note: PATIENT IDENTIFIERS: MARCELLO LUIS is a 49 year old old year old male who is Day -11 (Day 0 is 10/11/19) of an autologous peripheral blood stem cell transplant with a primary malignant disease diagnosis of marginal zonelymphoma. INTERVAL HISTORY: Aurelio presents to clinic ambulatory for symptom check of right neck. Started Eliquis on Friday and quickly felt good relief. No further neck pain or headaches. Feels ready to start prep, insurance approved. ROS: A comprehensive review of systems was negative except for: as noted above MEDICATIONS: Current Outpatient Medications: ??? acetaminophen (TYLENOL) 325 MG tablet, Take 2 tablets by mouth every 6 hours as needed for Fever or Pain Maximum allowable Acetaminophen amount = 4 Grams (4000 mg) / 24 hours. (Patient not taking: Reported on 09/21/2019), Disp: , Rfl: ??? acyclovir (ZOVIRAX) 400 MG tablet, Take 1 tablet by mouth 2 times daily, Disp: 60 tablet, Rfl: 11 ??? Apixaban (ELIQUIS STARTER PACK) 5 MG tablet, Take 10 mg by mouth twice daily for one week, then5 mg mouth twice daily there after, Disp: 1 package, Rfl: 0 ??? BABY ASPIRIN PO, Take 81 mg by mouth, Disp: , Rfl: ??? diclofenac sodium EC (VOLTAREN) 75 MG tablet, Take 75 mg by mouth 2 times daily, Disp: , Rfl: ??? docusate sodium (COLACE) 100 MG capsule, Take 1 capsule by mouth 2 times daily, Disp: 60 capsule, Rfl: 0 ??? enoxaparin (LOVENOX) injection, Inject 40 mg subcutaneously once daily, Disp: 30 syringe, Rfl: 2 ??? escitalopram (LEXAPRO) 10 MG tablet, Take 1 tablet by mouth once daily, Disp: 30 tablet, Rfl: 0 ??? ibuprofen (MOTRIN) 600 MG tablet, Take 1 tablet by mouth every 6 hours (Patient taking differently: Take 200 mg by mouth every 6 hours ), Disp: , Rfl: ??? Lansoprazole (PREVACID PO), Take by mouth as needed, Disp: , Rfl: ??? lidocaine-prilocaine (EMLA) 2.5-2.5 % cream, Apply to port site 30-60 mins before use., Disp: ,Rfl: ??? ondansetron, disintegrating, (ZOFRAN ODT) 8 MG tablet, Dissolve 1 tablet on top of tongue then swallow with saliva every 8 hours as needed for nausea or vomiting, Disp: , Rfl: ??? penicillin v potassium (VEETIDS) 250 MG tablet, Take 1 tablet by mouth 2 times daily (Patient taking differently: Take 250 mg by mouth 2 times daily Took 500 mg additional per dentist instructions), Disp: 60 tablet, Rfl: 5 ??? polyethylene glycol 3350 (MIRALAX) packet, Take 17 g by mouth once daily, Disp: , Rfl: ??? prochlorperazine (COMPAZINE) 10 MG tablet, Take 10 mg by mouth every 6 hours as needed, Disp: ,Rfl: VITALS: Vitals: 09/30/19 1112 BP: 123/72 Pulse: 94 Resp: 18 Temp: 98.5 ??F SpO2: 98% Weight: 117.6 kg (259 lb 3.2 oz) Wt Readings from Last 3 Encounters: 09/30/19 117.6 kg (259 lb 3.2 oz) 09/27/19 116.2 kg (256 lb 1.6 oz) 09/21/19 117.5 kg (259 lb) PHYSICAL EXAM: [place]/ECO/1 Physical Examination: General appearance - alert, well appearing, and in no distress Mental status - alert, oriented to person, place, and time Neck - supple, no significant adenopathy, non-tender to palpation CVC: tunneled CVC dressing is dry and intact without redness, swelling, or stated tenderness LABS: Recent Labs Component Name 09/30/19 1115 09/21/19 1413 09/21/19 0727 09/17/19 1149 09/09/19 1242 WBC 7.3 66.1* 92.5* - 12.5* 5.7 RBC 4.04* 3.65* 4.26* - 4.22* 4.25* HGB 11.9* 11.0* 12.6* - 12.5* 12.7* HCT 36.1* 32.7* 38.3* - 38.1* 37.8* MCV 89.4 89.6 89.9 - 90.3 88.9 MCH 29.5 30.1 29.6 - 29.6 29.9 MCHC 33.0 33.6 32.9 - 32.8 33.6 PLTCOUNT 532* 135* 303 - 328 489* RDWSD 49.3 49.0 48.9 - 49.0 46.2 RDW 15.1* 14.8 14.9* - 14.6 14.2 MPV 10.2 9.3 10.9 - 10.7 10.6 NRBCABS 0.00 0.12* 0.14* - 0.00 0.00 NRBCAUTOPCT 0.0 0.2* 0.2* - 0.0 0.0 NEUTPCT 61.5 - - - 68.1 56.9 LYMPHSPCT 19.0* - - - 17.0* 18.9* MONOPCT 11.3 - - - 7.6 11.0 EOSPCT 6.8* 5 5 - 5.5 10.2* BASOPCT 1.0 - - - 1.5 2.8* IMMGRANSPCT 0.4 - - - 0.3 0.2 NEUTABS 4.5 56.19* 69.38* - 8.5* 3.3 LYMPHS 1.4 0.66* 3.70* - 2.1 1.1 MONO 0.82* 4.63* 9.25* - 0.95* 0.63 EOS 0.49* 3.31* 4.63* - 0.69* 0.58* BASO 0.07* - 1.85* - 0.19* 0.16* TOTCELLCNT - 100 100 - - - - = values in this interval not displayed. Recent Labs Component Name 09/30/19 1115 09/21/19 0727 09/20/19 0814 09/09/19 1242 08/26/19 1345 BUN 18 - - 12 11 CREATININE 0.9 - - 0.9 0.9 NA 141 - - 142 141 POTASSIUM 4.3 4.1 4.2 4.2 4.7* CL 106 - - 108* 107 CO2 - - 23 23 CALCIUM 9.6 - - 9.3 9.8 PROT 6.6 - - 6.5 7.0 ALB 3.7 - - 3.8 3.4 TBILI 0.3 - - 0.2 0.2 ALKPHOS 155* - - 108 108 ALT 58* - - 36 48 AST 23 - - 20 31 ANIONGAP 13 - - 15 16 BCR 20 - - 13 12 OSMOLALITY 293 - - 293 291 AGRATIO 1.3 - - 1.4 0.9* EGFR >60 - - >60 >60 Recent Labs Component Name 09/30/19 1115 09/21/19 0727 09/20/19 0814 MAGNESIUM 2.0 1.8 1.8 Recent Labs Component Name 09/30/19 1115 09/09/19 1242 08/26/19 1345 PHOS 2.9 3.6 3.2 Routine Monitoring: CMV Quant by PCR, Interp Date Value Ref Range Status 09/17/2019 Detected (Abnormal) Not Detected Final 09/09/2019 Detected (Abnormal) Not Detected Final RADIOGRAPHY: Right Neck US (09/28/19): clot in right IJ that goes into the proximal subclavian veing ASSESSMENT/PLAN: MARCELLO LUIS is a 49 year old year old year old male, who is Day -11 (Day 0 is 10/11/19) of an autologous peripheral blood stem cell transplant with a 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 SYSTEMS: Marginal Zone Lymphoma in CR2 pre-transplant Planned disease evaluation: day [address], will discuss if needs bone marrow as well. Planned post transplant therapy: none planned at this time Schema: 5A Prep: BEAM, Cell count 10.4 x 10^6 CD34+cells/kg in 5 bags; Cell source: apheresis Engraftment: pending, will start granix on day +5 Expected pancytopenia with transplant: Transfusion threshold: Hgb > 8, Plt > 10 CMV +, transfusion pre meds: none needed Planned prophylaxis: Bacterial:??levaquin 500 mg daily starting on day +1; pcn VK 250 mg BID maintain on PCN VK vs Levaquin post-splenectomy until he can be re-vaccinated and adequate titers demonstrated Fungal:??fluconazole 400 mg daily with prep start PJP:??Bactrim DS MWF upon engraftment Viral:??ACV 400 mg BID DVT:??see clot below IVIG given 08/18/19 after splenectomy Right IJ venous clot -pain resolved -right neck US notes right IJ clot that goes into the proximal subclavian vein. -09/27/19: start Eliquis 10 mg PO BID x 7 days followed by 5 mg daily. Free drug provided through [facility]. 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 Arthritis -on diclofenac BID -arthritic pain worsened since stopping marijuana, using more [place] (3-4/day) ?? Anxiety/Depression -mood altered more noticeable after stopping marijuana use -lexapro 10 mg daily Discharge Planning: Patients preferred contact information: Caregiver: Other caregivers/people involved in care: Preferred D/C Pharmacy: Intended lodging: Referring provider Disposition: RTC 10/04/19 for MD/MIGUEL visit and prep start MIS[facility] Mar[facility] Transplant [facility] INUOUS IMPROVEMENT INTERN documented in this encounter Plan of Treatment Upcoming Encounters Date Type Department Care Team (Late st Contact Info) Description 08/26/2024 11:00 AM CONTINUOUS IMPROVEMENT INTERN Office Visit [facility] - Pulmonology [address] [place] [address], [place] [id number] Andrew Francis MD [address] [place] [address] 2L DIV OF PULMONARY/[place] [address] documented as of this encounter Procedures Procedure Name Priority Date/Time Associated Diagnosis Comments CBC W AUTO DIFFERENTIAL STAT 09/30/2019 11:15 AM CONTINUOUS IMPROVEMENT INTERN Diffuse large B-cell lymphoma, unspecified body region (HCC) COMPREHENSIVE METABOLIC PANEL STAT 09/30/2019 11:15 AM CONTINUOUS IMPROVEMENT INTERN Diffuse large B-cell lymphoma, unspecified body region (HCC) PHOSPHORUS BLOOD STAT 09/30/2019 11:1 5 AM CONTINUOUS IMPROVEMENT INTERN Diffuse large B-cell lymphoma, unspecified body region (HCC) MAGNESIUM BLOOD STAT 09/30/2019 11:15 AM CONTINUOUS IMPROVEMENT INTERN Diffuse large B-cell lymphoma, unspecified body region (HCC) documented in this encounter Results * PHOSPHORUS BLOOD (09/30/2019 11:15 AM CONTINUOUS IMPROVEMENT INTERN) Phosphorus 2.9 2.3 - 4.7 mg/dL 09/30/2019 11:44 AM [facility] Blood BLOOD SPECIMEN / Unknown Venipuncture / Unknown 09/30/2019 11:15 AM CONTINUOUS IMPROVEMENT INTERN 09/30/2019 11:21 AM CONTINUOUS IMPROVEMENT INTERN Tiffanie Nguyen APPLICATIONS SYSTEMS ENGINEER-[facility] LAB - CHEMISTRY ORDERABLES [address] [phone] * MAGNESIUM BLOOD (09/30/2019 11:15 AM CONTINUOUS IMPROVEMENT INTERN) Pathologist [facility] Magnesium 2.0 1.6 - 2.6 mg/dL 09/30/2019 11:44 AM [facility] Blood BLOOD SPECIMEN / Unknown Venipuncture / Unknown 09/30/2019 11:15 AM CONTINUOUS IMPROVEMENT INTERN 09/30/2019 11:21 AM CONTINUOUS IMPROVEMENT INTERN Tiffanie Nguyen APPLICATIONS SYSTEMS [facility] - CHE[facility]STRY ORDERABLES [address] [phone] * (ABNORMAL) CBC W AUTO DIFFERENTIAL (09/30/2019 11:15 AM CONTINUOUS IMPROVEMENT INTERN) WBC 7.3 3.5 - 10.5 10? 3 /uL 09/30/2019 11:24 AM [facility] RBC 4.04(L) 4.30 - 5.70 10? 6 /uL 09/30/2019 11:24 AM [facility] Hemoglobin 11.9(L) 13.5 - 17.5 g/dL 09/30/2019 11:24 AM [facility] Hematocrit 36.1(L) 39.0 - 50.0 % 09/30/2019 11:24 AM [facility] MCV 89.4 81.0 - 97.0 fL 09/30/2019 11:24 AM [facility] MCH 29.5 28.0 - 34.0 pg 09/30/2019 11:24 AM [facility] MCHC 33.0 32.0 - 36.0 g/dL 09/30/2019 11:24 AM [facility] Platelet Count 532(H) 150 - 400 10? 3 /uL 09/30/2019 11:24 AM [facility] RDW-SD 49.3 36.0 - 50.0 fL 09/30/2019 11:24 AM [facility] RDW-CV 15.1(H) 11.2 - 14.8 % 09/30/2019 11:24 AM [facility] MPV 10.2 9.3 - 12.8 fL 09/30/2019 11:24 AM [facility] nRBC Absolute 0.00 0 10? 3 /uL 09/30/2019 11:24 AM [facility] nRBC Auto 0.0 0 /100 WBC 09/30/2019 11:24 AM [facility] Neutrophils % 61.5 35.0 - 70.0 % 09/30/2019 11:24 AM [facility] Lymphocytes % 19.0(L) 19.7 - 55.1 % 09/30/2019 11:24 AM [facility] Monocytes % 11.3 3.0 - 15.0 % 09/30/2019 11:24 AM [facility] Eosinophils % 6.8(H) 0.0 - 6.0 % 09/30/2019 11:24 AM [facility] Basophil % 1.0 0.0 - 1.5 % 09/30/2019 11:24 AM [facility] Neutrophils Absolute 4.5 1.6 - 7.0 10? 3 /uL 09/30/2019 11:24 AM [facility] Lymphocyte Absolute 1.4 0.8 - 2.9 10? 3 /uL 09/30/2019 11:24 AM [facility] Monocytes Absolute 0.82(H) 0.14 - 0.66 10? 3 /uL 09/30/2019 11:24 AM [facility] Eosinophils Absolute 0.49(H) 0.00 - 0.45 10? 3 /uL 09/30/2019 11:24 AM [facility] Basophils Absolute 0.07(H) 0.00 - 0.06 10? 3 /uL 09/30/2019 11:24 AM [facility] Immature Granulocytes % 0.4 0.0 - 1.0 % 09/30/2019 11:24 AM [facility] Blood BLOOD SPECIMEN / Unknown Venipuncture / Unknown 09/30/2019 11:15 AM CONTINUOUS IMPROVEMENT INTERN 09/30/2019 11:21 AM CONTINUOUS IMPROVEMENT INTERN Tiffanie Nguyen APPLICATIONS SYSTEMS ENGINEER-LATHE OPERATOR LAB - HEMATOLOG Y ORDERABLES Performing Organization Address City/State/[facility] Co de Phone Number [facility] [address] [place] [address] * (ABNORMAL) COMPREHENSIVE METABOLIC PANEL (09/30/2019 11:15 AM CONTINUOUS IMPROVEMENT INTERN) BUN 18 7 - 26 mg/dL 09/30/2019 11:44 AM [facility] Creatinine 0.9 0.6 - 1.2 mg/dL 09/30/2019 11:44 AM [facility] Sodium 141 136 - 145 mmol/L 09/30/2019 11:44 AM [facility] Potassium 4.3 3.5 - 4.5 mmol/L 09/30/2019 11:44 AM [facility] Chloride 106 98 - 107 mmol/L 09/30/2019 11:44 AM [facility] CO2 26 22 - 29 mmol/L 09/30/2019 11:44 AM [facility] Glucose 87 70 - 115 mg/dL 09/30/2019 11:44 AM [facility] Calcium 9.6 8.4 - 10.2 mg/dL 09/30/2019 11:44 AM [facility] Protein Total 6.6 6.0 - 8.3 g/dL 09/30/2019 11:44 AM [facility] Albumin 3.7 3.4 - 5.0 g/dL 09/30/2019 11:44 AM [facility] Bilirubin Total 0.3 0.2 - 1.2 mg/dL 09/30/2019 11:44 AM [facility] Alkaline Phosphatase 155(H) 40 - 150 Units/L 09/30/2019 11:44 AM [facility] ALT 58(H) 0 - 55 Units/L 09/30/2019 11:44 AM [facility] AST 23 5 - 34 Units/L 09/30/2019 11:44 AM [facility] Anion Gap 13 8 - 18 09/30/2019 11:44 AM [facility] BUN/Creatinine Ratio 20 7 - 23 09/30/2019 11:44 AM [facility] Osmolality Calculated 293 270 - 300 mOsm/kg 09/30/2019 11:44 AM [facility] Albumin/Globulin Ratio 1.3 1.1 - 2.3 09/30/2019 11:44 AM [facility] eGFR >60 >60 mL/min/1.7 3 m2 09/30/2019 11:44 AM [facility] Blood BLOOD SPECIMEN / Unknown Venipuncture / Unknown 09/30/2019 11:15 AM CONTINUOUS IMPROVEMENT INTERN 09/30/2019 11:21 AM [facility] Tiffanie Nguyen APPLICATIONS SYSTEMS ENGINEER-LATHE OPERATOR LAB - CHEMISTRY ORDERABLES [facility] [address] [phone] documented in this encounter Visit Diagnoses Diagnosis Diffuse large B-cell lymphoma, unspecified body region (HCC)- Primary Anxiety Anxiety state, unspecified documented in this encounter Care Teams Soaker Hides Relationship Specialty Start Date End Date Ran Nuñez MD [address] [facility] [id number] PCP - General Family Medicine 03/22/19 12/22/20 Hillary Apple MD [address] [place] [address] Hematology and Oncology 03/17/19 Bill Ferrera MD [address] [place] [address] Hematology and Oncology 03/17/19 08/27/21 Tony Dumont MD [address] [place] [address] Hematology and Oncology 03/17/19 Maryjo Reinoso, REYNA Set Designer 03/17/19 Madyson Clay, PharmD 03/17/19 Dana Lala, APPLICATIONS SYSTEMS ENGINEER-GROUND SUPPORT EQUIPMENT FITTER [address] [place] [place] [address] Oncology 03/17/19 Tiffanie Nguyen, APPLICATIONS SYSTEMS ENGINEER-LATHE OPERATOR [address] [address] Family Medicine 03/17/19 Stephanie Mahoney, RN Registered Nurse 03/17/19 10/29/21 Alycia Galvan, RN 03/17/19 10/29/21 Cesar Tavares MD [address] [place] [address] Referring Physician Medical Oncology 03/23/19 Karie Jones, RN Registered Nurse 06/08/19 10/29/21 Joy Bob 09/22/19 Addison Shea, PharmD Pharmacist 09/22/19 10/29/21 documented as of this encounter
--- OUTSIDE RECORDS SUMMARY | 2024-08-18 00:31 | XMS_ITS | Encounter Summary ---
Author Organization [facility] Address [address] [facility] [place] [address] Care Team Providers Care Human Capital Analyst Name Role Phone Hillary Apple MD Unavailable [phone] Bill Ferrera MD Unavailable [phone] Tony Dumont MD Unavailable [phone] Shalini Segal MD Unavailable [phone] Maryjo Reinoso GIVER Unavailable Unavailable Madyson Clay PharmD Unavailable Unavaila Dana Galicia HOT KETTLE TENDER-WET CHAR CONVEYOR TENDER Unavailable [phone] Tiffanie Nguyen HOT KETTLE TENDER-COMPUTER SYSTEM TECHNICIAN Unavailable [phone] Stephanie Mahoney RN Unavailable Unavailable Alycia Galvan RN Unavailable UnavailRan Mejía MD Primary Care Provider Cesar Tavares MD Unavailable [phone] Karie Jones RN Unavailable Unavailable Joy Bob Unavailable Fanta Addison Weinstein PharmD Unavailable Unavailab le Encounter Details Date Type Department Care Team (Late st Contact Info) Description 09/23/[address] [facility] [address] [place] [address] Shalini Segal MD [address] [facility] [place] [address] Social History Tobacco Use Types [...] No 08/19/2019 documented as of this encounter Plan of Treatment Upcoming Encounters Date Type Department Care Team (Late st Contact Info) Description 08/26/2024 11:00 AM DUMP ATTENDANT Office Visit [facility] - Pulmonology [address] [place] [address], [place] [address] Andrew Francis MD [address] [place] [address] 2L DIV OF PULMONARY/[place] [address] documented as of this encounter Visit Diagnoses Not on filedocumented in this encounter Care Teams Human Capital Analyst Relationship Specialty Start Date End Date Ran Nuñez MD [address] [place] [address] PCP - General Family Medicine 03/22/19 12/22/20 Hillary Apple MD [address] [place] [address] Hematology and Oncology 03/17/19 Bill Ferrera MD [address] [place] [address] Hematology and Oncology 03/17/19 08/27/21 Tony Dumont MD [address] [place] [address] Hematology and Oncology 03/17/19 Shalini Segal MD [address] [place] [address] Hematology and Oncology 03/17/19 09/29/19 Maryjo Reinoso, GIVER Armhole Baster Jumpbasting 03/17/19 Madyson Clay, PharmD 03/17/19 Dana Lala, HOT KETTLE TENDER-WET CHAR CONVEYOR TENDER [address] [place], [place] [address] 2nd [place] [address] Oncology 03/17/19 Tiffanie Nguyen, HOT KETTLE TENDER-COMPUTER SYSTEM TECHNICIAN [address] [place] [address] 2nd [place] [address] Family Medicine 03/17/19 Stephanie Mahoney, RN Registered Nurse 03/17/19 10/29/21 Alycia Galvan, ROSEMARY 03/17/19 10/29/21 Cesar Tavares MD [address] [place] [address] [place] [address] Referring Physician Medical Oncology 03/23/19 Karie Jones, RN Registered Nurse 06/08/19 10/29/21 Joy Bob 09/22/19 Addison Shea, PharmD Pharmacist 09/22/19 10/29/21 documented as of this encounter
--- OUTSIDE RECORDS SUMMARY | 2024-08-18 00:31 | XMS_ITS | Encounter Summary ---
Author Organization [facility] Address [address] [place] [place] [address] Care Team Providers Care Ocular Care Aide Name Role Phone Hillary Apple MD Unavailable [phone] Bill Ferrera MD Unavailable [phone] Tony Dumont MD Unavailable [phone] Shalini Segal MD Unavailable [phone] Karie Jones RN Unavailable Unavailable Maryjo Reinoso LCSW Unavailable Unavailable Madyson Clay PharmD Unavailable Unavaila Dana Galicia DESKTOP PUBLISHING OPERATOR-VACCINATOR Unavailable [phone] Tfifanie Nguyen DESKTOP PUBLISHING OPERATOR-HAND TENNIS BALL COVERER Unavailable [phone] Stephanie Mahoney RN Unavailable Unavailable Alyica Galvan RN Unavailable UnavailRan Mejía MD Primary Care Provider Cesar Tavares MD Unavailable [phone] Karie Jones RN Unavailable Unavailable Reason for Visit * Oncology Prior Authorization (Routine) - Closed Specialty Diagnoses / Procedures Referred By Contac t Referred To Contact Diagnoses B-cell lymphoma, unspecified B-cell lymphoma type, unspecified body region (HCC) Hillary Apple MD [address] [facility] HEMATOLOGY & [place] [address] [facility] [address] [place] [address] Referral ID Status Reason Start Date Expiration Date Visits Re quested Visits Authorized [id number] Closed 09/16/2019 03/14/2020 1 1 Encounter Details Date Type Department Care Team (Latest Contact Info) Description 09/20/2019 4:02 PM APPLICATION TESTER - 09/20/2019 11:59 PM APPLICATION TESTER Hospital Encounter [facility] [address] [place], [place] [id number] Tiffanie Nguyen, DESKTOP PUBLISHING OPERATOR-HAND TENNIS BALL COVERER [address] [place] [address] Discharge Disposition: Home or Self Care Social [...] Sign Reading Time Taken Comments Blood Pressure 140/87 09/20/2019 5:45 PM APPLICATION TESTER Pulse 96 09/20/2019 5:45 PM APPLICATION TESTER Temperature 36.9 ??C (98.5 ??F) 09/20/2019 5:45 PM CS T Respiratory Rate 18 09/20/2019 5:45 PM APPLICATION TESTER Oxygen Saturation 97% 09/20/2019 5:45 PM APPLICATION TESTER Inhaled Oxygen Concentration - - Weight - [...] times daily 60 tablet 11 05/24/2019 11/10/2019 BABY ASPIRIN PO Take 81 mg by [...] needed for nausea or vomiting 04/19/2019 2 oxyCODONE, immediate release, (ROXICODONE) 5 MG tablet Take 1 tablet by mouth every 6 hours as needed for Pain 28 tablet 09/18/2019 09/25/2019 penicillin v potassium (VEETIDS) 250 MG tablet Take 1 tablet by mouth 2 times daily 60 tablet 5 08/11/2019 03/13/2021 polyethylene glycol 3350 (MIRALAX) packet Take 17 g by mouth once daily as needed for Constipation 10/29/2019 prochlorperazine (COMPAZINE) 10 MG tablet Take 10 mg by mouth every 6 hours as needed 04/27/2019 12/21/19 22 documented as of this encounter Plan of Treatment Upcoming Encounters Date Type Department Care Team (Late st Contact Info) Description 08/26/2024 11:00 AM APPLICATION TESTER Office Visit [facility] - Pulmonology [address] [facility], [place] [address] Andrew Francis MD [facility] [facility] 2L DIV OF PULMONARY/[place] [address] documented as of this encounter Visit Diagnoses Diagnosis B-cell lymphoma, unspecified B-cell lymphoma type, unspecified body region (HCC)- Primary documented in this encounter Administered Medications Inactive Administered Medications - up to 3 most recent administrations Medication Order MAR Action Action Date Dose Rate Site Plerixafor SOLN 24 mg 24 mg, Subcutaneous, ONCE, 1 dose, On Fri09/20/19 at 1545, To be released and administered by BMT. Do not give Plerixafor before 1630hrs unless instructed to do so. Do not administer and contact Physician if creatinine clearance/eGFR less than or equal to 50 ml/min. $ Given 09/20/2019 5:06 PM APPLICATION TESTER 24 mg Abd Left Lower Quadrant documented in this encounter Care Teams Ocular Care Aide Relationship Specialty Start Date End Date Ran Nuñez MD [address] [place] [address] PCP - General Family Medicine 03/22/19 12/22/20 Hillary Apple MD [address] [place] [address] Hematology and Oncology 03/17/19 Bill Ferrera MD [address] [place] [address] Hematology and Oncology 03/17/19 08/27/21 Tony Dumont MD [facility] [place] [address] Hematology and Oncology 03/17/19 Shalini Segal MD [address] [place] [address] Hematology and Oncology 03/17/19 09/29/19 Karie Jones, RN Registered Nurse 03/17/19 09/21/19 Maryjo Reinoso, REYNA [employer] 03/17/19 Madyson Clay, PharmD 03/17/19 Dana Lala, DESKTOP PUBLISHING OPERATOR-VACCINATOR [address] [facility] 2nd [place] [address] Oncology 03/17/19 Tiffanie Nguyen, DESKTOP PUBLISHING OPERATOR-HAND TENNIS BALL COVERER [address] [place] [address] Family Medicine 03/17/19 Stephanie Mahoney RN Registered Nurse 03/17/19 10/29/21 Alycia Galvan, ROSEMARY 03/17/19 10/29/21 Cesar Tavares MD [address] [place] [id number] Referring Physician Medical Oncology 03/23/19 Karie Jones, RN Registered Nurse 06/08/19 10/29/21 documented as of this encounter
--- OUTSIDE RECORDS SUMMARY | 2024-08-18 00:31 | XMS_ITS | Encounter Summary ---
Author Organization [facility] Address [address] [place] [address] Care Team Providers Care Powder Truck Driver Name Role Phone Hillary Apple MD Unavailable [phone] Bill Ferrera MD Unavailable [phone] Tony Dumont MD Unavailable [phone] Shalini Segal MD Unavailable [phone] Maryjo Reinoso LCSW Unavailable Unavailable Madyson Clay PharmD Unavailable Unavaila Dana Galicia SEO ASSISTANT-SITE PROMOTION AGENT Unavailable [phone] Tiffanie Nguyen SEO ASSISTANT-MECHANICAL DESIGN TECHNICIAN Unavailable [phone] Stephanie Mahoney RN Unavailable Unavailable Alycia Galvan RN Unavailable UnavailRan Mejía MD Primary Care Provider Cesar Tavares MD Unavailable [phone] Karie Jones RN Unavailable Unavailable Joy Bob Unavailable Fanta Addison Weinstein PharmD Unavailable Unavailab le Reason for Referral * Radiology Services (Routine) - Closed Specialty Diagnoses / Procedures Referred By Deng t Referred To Contact Diagnoses Neck pain on right side Procedures VAS RIGHT VENOUS DUPLEX UE VAS CAROTID DUPLEX LTD Tiffanie Nguyen APRN-MECHANICAL DESIGN TECHNICIAN [address] [place] [address] Referral ID Status Reason Start Date Expiration Date Visits Re quested Visits Authorized [id number] Closed 09/27/2019 03/25/2020 1 1 NG LINE WORKER Reason for Visit * Oncology Prior Authorization (Routine) - Closed Specialty Diagnoses / Procedures Referred By Deng t Referred To Contact Diagnoses Diffuse large B-cell lymphoma, unspecified body region (HCC) Procedures [place] ALTEPLASE RECOMBINANT Tiffanie Nguyen APRN-CNP [address] [place] [address] [facility] [address] [place] [address] Referral ID Status Reason Start Date Expiration Date Visits Re quested Visits Authorized [id number] Closed 05/24/2019 11/20/2019 1 1 Encounter Details Date Type Department Care Team (Latest Contact Info) Description 09/27/2019 8:56 AM MAKING LINE WORKER - 09/27/2019 10:09 AM MAKING LINE WORKER Hospital Encounter [facility] [address] [place] [address] Bill Ferrera MD [address] [place] [address] Tiffanie Nguyen APRN-CNP [address] [place] [address] Discharge Disposition: Home or Self [...] Sign Reading Time Taken Comments Blood Pressure 122/89 09/27/2019 9:08 AM MAKING LINE WORKER Pulse 98 09/27/2019 9:08 AM MAKING LINE WORKER Temperature 36.5 ??C (97.7 ??F) 09/27/2019 9:08 AM CS T Respiratory Rate 18 09/27/2019 9:08 AM MAKING LINE WORKER Oxygen Saturation 98% 09/27/2019 9:08 AM MAKING LINE WORKER Inhaled Oxygen Concentration - - Weight 116.2 kg (256 lb 1.6 oz) 09/27/2019 9:08 AM MAKING LINE WORKER Height - - Body Mass Index 39.52 09/21/2019 7:41 AM MAKING LINE WORKER documented in this encounter Functional Status Functional [...] encounter Progress Notes * Tiffanie Nguyen, JOSE DAVID-MECHANICAL DESIGN TECHNICIAN - 09/27/2019 9:00 AM CST Aurelio Guillen is a 49 y.o. male who presents to clinic today for dressing change. Interval History: He reports having headaches and right neck pain over the weekend. Back of neck on the right side isvery tender to the touch. He's concerned about clot as his PAC was removed from the right side lastweek. He had been on ppx lovenox which was too expensive without insurance so he stopped taking 4 days ago (09/23/19). Vitals: 09/27/19 0908 BP: 122/89 Pulse: 98 Resp: 18 Temp: 97.7 ??F SpO2: 98% Weight: 116.2 kg (256 lb 1.6 oz) Assessment/Plan 1. Right IJ venous clot -very tender to the touch, no erythema noted -right neck US notes right IJ clot that goes into the proximal subclavian vein. -start Eliquis 10 mg PO BID x 7 days followed by 5 mg daily. Free drug provided through [facility]. 2. 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 Will continue weekly checks/dressing changes until insurance verified. Disposition: RTC 09/30/19 for symptom check. MIS[facility] NG LINE WORKER documented in this encounter Plan of Treatment Upcoming Encounters Date Type Department Care Team (Late st Contact Info) Description 08/26/2024 11:00 AM MAKING LINE WORKER Office Visit [facility] - Pulmonology [address] [place] [address], [place] [address] Andrew Francis MD [address] [place] [address] 2L DIV OF PULMONARY/[place] [address] documented as of this encounter Results * VAS RIGHT VENOUS DUPLEX UE (09/27/2019 10:57 AM MAKING LINE WORKER) Anatomical Region Laterality Modality Upper Extremity Intravascular Ul trasound 09/27/2019 10:2 5 AM MAKING LINE WORKER Narrative Procedure Note Alonso Carreon MD - 10/01/2019 Tiffanie [facility] documented in this encounter Visit Diagnoses Diagnosis Diffuse large B-cell lymphoma, unspecified body region (HCC)- Primary Neck pain on right side Cervicalgia Dressing change Encounter for change or removal of nonsurgical wound dressing Neck pain on right side Cervicalgia documented in this encounter Administered Medications Inactive Administered Medications - up to 3 most recent administrations Medication Order MAR Action Action Date Dose Rate Site heparin lock flush injection 500 Units 500 Units, Intracatheter, PRN, Other, Site maintenance, Starting on Fri09/27/19 at 0836, Until Fri09/27/19 at 2035 $ Given 09/27/2019 9:12 AM MAKING LINE WORKER 500 Units $ Given 09/27/2019 9:11 AM MAKING LINE WORKER 500 Units $ Given 09/27/2019 9:10 AM MAKING LINE WORKER 500 Units documented in this encounter Care Teams Powder Truck Driver Relationship Specialty Start Date End Date Ran Nuñez MD [address] [place] [address] PCP - General Family Medicine 03/22/19 12/22/20 Hillary Apple MD [address] [place] [address] Hematology and Oncology 03/17/19 Bill Ferrera MD [address] [place] [address] Hematology and Oncology 03/17/19 08/27/21 Tony Dumont MD [address] [place] [address] Hematology and Oncology 03/17/19 Shalini Segal MD [address] [place] [address] Hematology and Oncology 03/17/19 09/29/19 Maryjo Reinoso, FOOD PREPARATION KITCHEN AIDE Press Assistant And Feeder 03/17/19 Madyson Clay, PharmD 03/17/19 Dana Lala, SEO ASSISTANT-SITE PROMOTION AGENT [address] [place], [place] [address]TA [facility] 2[place] [address] Oncology 03/17/19 Tiffanie Nguyen, SEO ASSISTANT-MECHANICAL DESIGN TECHNICIAN [address] [place] [address] 2nd [place] [address] Family Medicine 03/17/19 Stephanie Mahoney, RN Registered Nurse 03/17/19 10/29/21 Alycia Galvan, ROSEMARY 03/17/19 10/29/21 Cesar Tavares MD [address] [place] [address] Referring Physician Medical Oncology 03/23/19 Karie Jones, RN Registered Nurse 06/08/19 10/29/21 Joy Bob 09/22/19 Addison Shea, PharmD Pharmacist 09/22/19 10/29/21 documented as of this encounter
--- OUTSIDE RECORDS SUMMARY | 2024-08-18 00:31 | XMS_ITS | Encounter Summary ---
Author Organization [facility] Address [address] [place] [address] Care Team Providers Care Welt Treater Name Role Phone Hillary Apple MD Unavailable [phone] Bill Ferrera MD Unavailable [phone] Tony Dumont MD Unavailable [phone] Shalini Segal MD Unavailable [phone] Karie Jones RN Unavailable Unavailable Maryjo Reinoso LCSW Unavailable Unavailable Madyson Clay PharmD Unavailable Unavaila Dana Galicia SEAFOOD FISHERMAN-NEGATIVE SPOTTER Unavailable [phone] Tiffanie Nguyen SEAFOOD FISHERMAN-SEALER DRY CELL Unavailable [phone] Stephanie Mahoney RN Unavailable Unavailable Alycia Galvan RN Unavailable UnavailRan Mejía MD Primary Care Provider Cesar Tavares MD Unavailable [phone] Karie Jones RN Unavailable Unavailable Encounter Details Date Type Department Care Team (Latest Contact Info) Description 09/21/2019 3:44 PM ROLLER CLEANER - 09/21/2019 11:59 PM ROLLER CLEANER Hospital Encounter [facility] [address] [place] [address] Bill Ferrera MD [address] [place] [address] Discharge Disposition: Home or Self Care Social [...] Contact Info) Description 08/26/2024 11:00 AM ROLLER CLEANER Office Visit [facility] - Pulmonology [address] [place] [address], [facility] [address] Andrew Francis MD [address] [place] [address] DIV OF PULMONARY/[place] [address] documented as of this encounter Visit Diagnoses Not on filedocumented in this encounter Care Teams Welt Treater Relationship Specialty Start Date End Date Ran Nuñez MD [address] [place] [address] PCP - General Family Medicine 03/22/19 12/22/20 Hillary Apple MD [address] [place] [address] Hematology and Oncology 03/17/19 Bill Ferrera MD [address] [place] [address] Hematology and Oncology 03/17/19 08/27/21 Tony Dumont MD [address] [place] [address] Hematology and Oncology 03/17/19 Shalini Segal MD [address] [place] [address] Hematology and Oncology 03/17/19 09/29/19 Karie Jones, RN Registered Nurse 03/17/19 09/21/19 Maryjo Reinoso, [facility] Field Care Manager 03/17/19 Madyson Clay, PharmD 03/17/19 Dana Lala, SEAFOOD FISHERMAN-NEGATIVE SPOTTER [address] [place] [address] 2[place] [address] Oncology 03/17/19 Tiffanie Nguyen, SEAFOOD FISHERMAN-SEALER DRY CELL [address] [place] [address] 2nd [place] [address] Family Medicine 03/17/19 Stephanie Mahoney, RN Registered Nurse 03/17/19 10/29/21 Alycia Galvan, ROSEMARY 03/17/19 10/29/21 Cesar Tavares MD [address] [place] [address] Referring Physician Medical Oncology 03/23/19 Karie Jones, RN Registered Nurse 06/08/19 10/29/21 documented as of this encounter
--- OUTSIDE RECORDS SUMMARY | 2024-08-18 00:31 | XMS_ITS | Encounter Summary ---
Author Organization [facility] Address [address] [place] [address] Care Team Providers Care Heater Mechanic Name Role Phone Hillary Apple MD Unavailable [phone] Bill Ferrera MD Unavailable [phone] Tony Dumont MD Unavailable [phone] Shalini Segal MD Unavailable [phone] Karie Jones RN Unavailable Unavailable Maryjo Reinoso LCSW Unavailable Unavailable Madyson Clay PharmD Unavailable Unavaila Dana Galicia PRESCHOOL TEACHER ASSISTANT-SPORTS ATTORNEY Unavailable [phone] Tiffanie Nguyen PRESCHOOL TEACHER ASSISTANT-COREMAKING MACHINE SETTER Unavailable [phone] Stephanie Mahoney RN Unavailable Unavailable Alycia Galvan RN Unavailable UnavailRan Mejía MD Primary Care Provider Cesar Tavares MD Unavailable [phone] Karie Jones RN Unavailable Unavailable Reason for Visit * Oncology Prior Authorization (Routine) - Closed Specialty Diagnoses / Procedures Referred By Contac t Referred To Contact Diagnoses B-cell lymphoma, unspecified B-cell lymphoma type, unspecified body region (HCC) Hillary Apple MD [address] [facility] [place] [address] [facility] [address] [place] [address] Referral ID Status Reason Start Date Expiration Date Visits Re quested Visits Authorized [id number] Closed 09/16/2019 03/14/2020 1 1 Encounter Details Date Type Department Care Team (Latest Contact Info) Description 09/21/2019 7:00 AM SENIOR GRANT WRITER - 09/21/2019 3:43 PM SENIOR GRANT WRITER Hospital Encounter [facility] [address] [place] [address] Bill Ferrera MD [address] [place] [address] Rd [address] [place] [address] Monica Latif, PRESCHOOL TEACHER ASSISTANT-COREMAKING MACHINE SETTER [address] [place] [address] Discharge Disposition: Home or Self Care Social [...] Sign Reading Time Taken Comments Blood Pressure 133/80 09/21/2019 2:15 PM SENIOR GRANT WRITER Pulse 94 09/21/2019 2:15 PM SENIOR GRANT WRITER Temperature 37.2 ??C (98.9 ??F) 09/21/2019 2:15 PM CS T Respiratory Rate 18 09/21/2019 2:15 PM SENIOR GRANT WRITER Oxygen Saturation 98% 09/21/2019 2:15 PM SENIOR GRANT WRITER Inhaled Oxygen Concentration - - Weight 117.5 kg (259 lb) 09/21/2019 7:41 AM SENIOR GRANT WRITER Height 171.5 cm (5' 7.5 ) 09/21/2019 7:41 AM SENIOR GRANT WRITER Body Mass Index 39.97 09/21/2019 7:41 AM SENIOR GRANT WRITER documented in this encounter Functional Status Functional [...] No 08/19/2019 documented as of this encounter Discharge Instructions * Discharge Instructions* Kristina Maza RN - 09/21/2019 2:45 PM SENIOR GRANT WRITER Images from the original note were not included. Tunneled Central Lines WHAT YOU NEED TO KNOW: A tunneled central line is a type of long-term IV catheter. A catheter is a flexible tube used to give treatments and to take blood. You can see the catheter under your skin before it enters a vein near your heart. You will need to flush and care for your central line as directed. DISCHARGE INSTRUCTIONS: Call your local emergency number (174 in the ) for any of the following: ?? You have pain in your arm, neck, shoulder, or chest. ?? You cough up blood. ?? You have chest pain or trouble breathing. Seek care immediately if: ?? The catheter site turns cold, changes color, or you cannot feel it. ?? You see blisters on your skin around where the catheter enters it. Call your doctor if: ?? You have a fever. 100.4 or above. Call the after hours emergency number [phone] and ask theoperator to page the BMT physician ironer sock. ?? The catheter site is red, warm, painful, or is oozing fluid. ?? You see blood on your bandage and the amount is increasing. ?? The veins in your neck or chest bulge. ?? You cannot flush your catheter, or you feel pain when you flush your catheter. ?? You see that the catheter is getting shorter, or it falls out. ?? You see a hole or a crack in your catheter. Clamp your catheter above the damage before you callyour doctor. ?? You have questions about how to care for your catheter. What you need to remember about the central line: The following can help prevent an infection or other problems: ?? Clamp the catheter as needed. You may need to clamp your catheter at certain times, if you notice the pinch clamp is open. Just close the pinch clamp shut. The catheter is clamped to help prevent air from getting in. ?? Ask about activity. Your healthcare provider will tell you which activities are safe for you. You may not be able to play contact sports until the catheter is removed. Prevent an infection: The area around your catheter may get infected, or you may get an infection in your bloodstream. A bloodstream infection is called a central line-associated bloodstream infection (CLABSI). A CLABSI is caused by bacteria getting into your bloodstream through your catheter. Thiscan lead to severe illness. The following are ways you can help prevent a CLABSI: ?? Wash your hands often. Use soap or an alcohol-based hand rub to clean your hands. Clean your hands before and after you touch the catheter or the catheter site. Remind anyone who cares for your catheter to wash their hands. ?? Limit contact with the catheter. Do not touch or handle your catheter unless you need to care for it. Do not pull, push on, or move the catheter when you clean your skin or change the dressing. Wear clean medical gloves when you touch your catheter or change dressings. ?? Keep the area covered and dry. Keep a sterile dressing over the catheter site. Wrap the insertion site with plastic and seal it with medical tape before you bathe. Take showers instead of baths. Do not swim or soak in a hot tub. Follow up with your doctor as directed: You may need to have the stitches taken out. Write down your questions so you remember to ask them during your visits. ?? Copyright [employer] 2019 Information is for End User's use only and may not be sold, redistributed or otherwise used for commercial purposes. All illustrations and images included in CareNotes?? are the copyrighted property of [employer], [employer]. or [place]-8 The above information is an physician's aide only. It is not intended as medical advice for individual conditions or treatments. Talk to your doctor, nurse or pharmacist before following any medical regimen to see if it is safe and effective for you. OR GRANT WRITER documented in this encounter Medications at Time [...] as of this encounter Progress Notes * Kristina Maza RN - 09/21/2019 7:00 AM CST Hematopoietic Progenitor Cell collction In BMT for day 1 HPC-A collection for diagnosis DLBCL. Presently without pain but states took Oxycodone last PM with relief for sternum, low back and hip pain. Denied nausea, vomiting or diarrhea. Pre precedure labs drawn. LIJ catheter with intermittent blood return from red port, labs drawn and flushed easily. Blue port with good blood return and white port with very sluggish blood return; both ports flush easily. Dr. Garcia reviewed labs and examined patient;informed of catheter blood flow status with aspiration. Final approval given by Dr. Garcia to proceed with procedure. Time Out performedwith Nicole RILEY. Red port with good blood return at this time and connected to draw line; blue port with good blood return connected to return line. Procedure started at 0842 without difficulty. Had episode of very mild tingling of lips which resolved by increasing the Calcium Gluconate drip. Dr. Garcia was kept posted throughout the procedure with patient status. Catheter flow was good throughout procedure with rare access alarms. Placed into rinseback at 1336. Final verification of product performed and product taken by CTL. Post CBCD drawn. Flushed all 3 pots with 20 ml NS and Heparin 300 units. Sterile luer caps and disinfection caps applied. Post procedure and catheter care instructions given. Final BP 133/80-94-18 02 sat 98% T 98.9. Escorted to BMT treatment room # and report given to Aura RILEY/BMT. Left with patient in no distress. Dr. Garcia updated with final patient and procedure status. Whole Blood Processed: 20,084 ml TBV: 6276 Final fluid balance: 128% Volume IN : 2651 ml Volume OUT: 558 ml (+ void x 2) Net difference: + 2093 ml OR GRANT WRITER documented in this encounter Procedure Notes * Apollo Garcia MD - 09/21/2019 7:00 AM CSTAssociated Order(s): DIFFERENTIAL MANUAL; CBC W AUTO DIFFERENTIAL; SPECIAL DIET INSTRUCTIONS TO INCLUDE...; DIFFERENTIAL MANUAL; SPECIAL DIET INSTRUCTIONS TO INCLUDE...; CALCIUM IONIZED WHOLE BLOOD; FLOW CYTOMETRY CD34 COUNT BLOOD; COLLECT/PROCESS: AUTO-HPC APHERESIS; MAGNESIUM BLOOD; POTASSIUM BLOOD; CBC W AUTO DIFFERENTIAL; TYPE + SCREEN PANEL; DAILY WEIGHTS; AMBULATE / UP AD JAKE; DIET REGULAR Procedure(s): MI BLD DRV PRGNTR CELL HRV TPLNT; Pre-Procedure Diagnose(s): Marginal zone lymphoma (HCC); Autologous donor, stem cells Post-Procedure Diagnose(s): Diffuse large B-cell lymphoma, unspecified body region (HCC) Cellular Therapy Collections Progress Note Marcello Guillen 09/21/2019 Diagnosis: 1. B-cell lymphoma, unspecified B-cell lymphoma type, unspecified body region Protocol/Regimen: HPC Mobilization and Collection Interval History: 49 y.o. male with marginal zone lymphoma here for autologous hematopoietic progenitor collection #1. Patient reports some bone pain since he started taking Neupogen. The pain is mostly in his sternum and back. Pain is controlled with Tylenol and oxycodone. No pain this am. No F/C/N/V/D/COOPER/SOB. Allergies Allergen Reactions ??? Adhesive Sensitivity Urticaria and Other Electrodes -- welps where stickers are Also, use paper tape Current Outpatient Medications Medication Sig Dispense Refill ??? acetaminophen (TYLENOL) 325 MG tablet Take 2 tablets by mouth every 6 hours as needed for Feveror Pain Maximum allowable Acetaminophen amount = 4 Grams (4000 mg) / 24 hours. (Patient not taking:Reported on 09/21/2019) ??? acyclovir (ZOVIRAX) 400 MG tablet Take 1 tablet by mouth 2 times daily 60 tablet 11 ??? BABY ASPIRIN PO Take 81 mg by mouth ??? diclofenac sodium EC (VOLTAREN) 75 MG tablet Take 75 mg by mouth 2 times daily ??? docusate sodium (COLACE) 100 MG capsule Take 1 capsule by mouth 2 times daily 60 capsule 0 ??? enoxaparin (LOVENOX) injection Inject 40 mg subcutaneously once daily 30 syringe 2 ??? escitalopram (LEXAPRO) 10 MG tablet Take 1 tablet by mouth once daily 30 tablet 0 ??? ibuprofen (MOTRIN) 600 MG tablet Take 1 tablet by mouth every 6 hours (Patient taking differently: Take 200 mg by mouth every 6 hours ) ??? Lansoprazole (PREVACID PO) Take by mouth as needed ??? lidocaine-prilocaine (EMLA) 2.5-2.5 % cream Apply to port site 30-60 mins before use. ??? ondansetron, disintegrating, (ZOFRAN ODT) 8 MG tablet Dissolve 1 tablet on top of tongue then swallow with saliva every 8 hours as needed for nausea or vomiting ??? oxyCODONE, immediate release, (ROXICODONE) 5 MG tablet Take 1 tablet by mouth every 6 hours as needed for Pain 28 tablet 0 ??? penicillin v potassium (VEETIDS) 250 MG tablet Take 1 tablet by mouth 2 times daily (Patient taking differently: Take 250 mg by mouth 2 times daily Took 500 mg additional per dentist instructions) 60 tablet 5 ??? polyethylene glycol 3350 (MIRALAX) packet Take 17 g by mouth once daily ??? prochlorperazine (COMPAZINE) 10 MG tablet Take 10 mg by mouth every 6 hours as needed Current Facility-Administered Medications Medication Dose Route Frequency Provider Last Rate Last Dose ??? 0.9% NaCl injection 20 mL 20 mL Intracatheter PRN Tiffanie Nguyen APRN-CNP 20 mL at 09/21/19 1438 ??? calcium gluconate 5 g in 300 mL NS 5 g Intravenous PRN Tiffanie Nguyen APRN-CNP Stopped at 09/21/19 1350 ??? heparin lock flush injection 300 Units 300 Units Intravenous PRN Tiffanie Nguyen APRN-COREMAKING MACHINE SETTER 300Units at 09/21/19 1352 Physical Exam Constitutional: Patient Vitals for the past 24 hrs: BP Temp Temp src Pulse Resp SpO2 Height Weight 09/21/19 1415 133/80 98.9 ??F Oral 94 18 98 % -- -- 09/21/19 1211 143/82 98.3 ??F Oral 88 18 97 % -- -- 09/21/19 1119 144/82 -- -- 88 18 98 % -- -- 09/21/19 1036 130/75 98.6 ??F Oral 93 18 99 % -- -- 09/21/19 0923 128/80 98.1 ??F Oral 86 18 97 % -- -- 09/21/19 0741 129/86 98.1 ??F Oral 97 [...] hour(s)) TYPE AND SCREEN Collection Time: 09/21/19 7:25 AM Result Value Ref Range Antibody Screen NEG ABO Rh A POS MAGNESIUM BLOOD Collection Time: 09/21/19 7:27 AM Result Value Ref Range Magnesium 1.8 1.6 - 2.6 mg/dL POTASSIUM BLOOD Collection Time: 09/21/19 7:27 AM Result Value Ref Range Potassium 4.1 3.5 - 4.5 mmol/L CBC W AUTO DIFFERENTIAL Collection Time: 09/21/19 7:27 AM Result Value Ref Range WBC 92.5 (HH) 3.5 - 10.5 10??3/uL RBC 4.26 (L) 4.30 - 5.70 10??6/uL Hemoglobin 12.6 (L) 13.5 - 17.5 g/dL Hematocrit 38.3 (L) 39.0 - 50.0 % MCV 89.9 81.0 - 97.0 fL MCH 29.6 28.0 - 34.0 pg MCHC 32.9 32.0 - 36.0 g/dL Platelet Count 303 150 - 400 10??3/uL RDW-SD 48.9 36.0 - 50.0 fL RDW-CV 14.9 (H) 11.2 - 14.8 % MPV 10.9 9.3 - 12.8 fL nRBC Absolute 0.14 (H) 0 10??3/uL nRBC Auto 0.2 (H) 0 /100 WBC CALCIUM IONIZED WHOLE BLOOD Collection Time: 09/21/19 7:27 AM Result Value Ref Range Ionized Calcium Whole Blood 1.19 mmol/L Adjusted Ionized Calcium 1.15 (L) 1.19 - 1.34 mmol/L pH Whole Blood 7.33 (L) 7.35 - 7.45 FLOW CYTOMETRY CD34 COUNT BLOOD Collection Time: 09/21/19 7:27 AM Result Value Ref Range Reason for test B-cell lymphoma, unspecified B-cell lymphoma type, unspecified body region Client Specimen ID # [id number] Number of Markers 2 Flow Cytometry Results Differential Result % Comment Total Viability 99.0 Lymph/[place]/Gran Region Surface Marker Results % Absolute Count (cell/uL) CD34 0.08 73.260 CD45 96.93 88,763.648 Flow Cytometry Interpretation Testing is technical only and does not require an interpretation of results. Disclaimer Test performed at [facility], [address] [place] [address], [address]. This test was developed and its performance [...] perform high complexity clinical testing. Embedded Images DIFFERENTIAL MANUAL Collection Time: 09/21/19 7:27 AM Result Value Ref Range WBC (corrected for NRBC) 92.5 10??3/uL Total Cell Count 100 Neutrophils Absolute Manual 69.38 (H) 1.60 - 7.00 10??3/uL Lymphocyte Absolute 3.70 (H) 0.80 - 2.90 10??3/uL Monocytes Absolute 9.25 (H) 0.14 - 0.66 10??3/uL Eosinophils Absolute Manual 4.63 (H) 0.00 - 0.22 10??3/uL Basophil Absolute Manual 1.85 (H) 0.00 - 0.06 10??3/uL Band % Manual 18 (H) 0 - [...] CBC W AUTO DIFFERENTIAL Collection Time: 09/21/19 2:13 PM Result Value Ref Range WBC 66.1 (HH) 3.5 - 10.5 10??3/uL RBC 3.65 (L) 4.30 - 5.70 10??6/uL Hemoglobin 11.0 (L) 13.5 - 17.5 g/dL Hematocrit 32.7 (L) 39.0 - 50.0 % MCV 89.6 81.0 - 97.0 fL MCH 30.1 28.0 - 34.0 pg MCHC 33.6 32.0 - 36.0 g/dL Platelet Count 135 (L) 150 - 400 10??3/uL RDW-SD 49.0 36.0 - 50.0 fL RDW-CV 14.8 11.2 - 14.8 % MPV 9.3 9.3 - 12.8 fL nRBC Absolute 0.12 (H) 0 10??3/uL nRBC Auto 0.2 (H) 0 /100 WBC DIFFERENTIAL MANUAL Collection Time: 09/21/19 2:13 PM Result Value Ref Range WBC (corrected for NRBC) 66.1 10??3/uL Total Cell Count 100 Neutrophils Absolute Manual 56.19 (H) 1.60 - 7.00 10??3/uL Lymphocyte Absolute 0.66 (L) 0.80 - 2.90 10??3/uL Monocytes Absolute 4.63 (H) 0.14 - 0.66 10??3/uL Eosinophils Absolute Manual 3.31 (H) 0.00 - 0.22 10??3/uL Band % Manual 28 (H) 0 - [...] with marginal zone lymphoma who presents for peripheralblood hematopoietic progenitor collection #1. This is Day 5 of his Neupogen. Catheter placement wasconfirmed per IR note. No changes were noted in Donor History Questionnaire. Donor was stable goinginto collection. Pre collection Hct and Plt levels were acceptable. Post collection Hct=32.7, Pzi=500 . The collection was well tolerated. The goal for this procedure is 2-4 x 10e6 CD34 cells/kg. Processed volume during procedure was 08541bH. Yield of collection was 10.4x10e6 CD34/kg. Goal was reached. Apollo Garcia MD, PhD OR GRANT WRITER documented in this encounter Plan of Treatment Upcoming Encounters Date Type Department Care Team (Late st Contact Info) Description 08/26/2024 11:00 AM SENIOR GRANT WRITER Office Visit [facility] - Pulmonology [address] [place] [address], [place] [id number] Andrew Francis MD [address] [place] [address] [address] DIV OF PULMONARY/[place] [address] documented as of this encounter Procedures Procedure Name Priority Date/Time Associated Diagnosis Comments DIFFERENTIAL MANUAL STAT 09/21/2019 2 :13 PM SENIOR GRANT WRITER B-cell lymphoma, unspecified B-cell lymphoma type, unspecified body region (HCC) CBC W AUTO DIFFERENTIAL STAT 09/21/2019 2:13 PM SENIOR GRANT WRITER B-cell lymphoma, unspecified B-cell lymphoma type, unspecified body region (HCC) FLOW CYTOMETRY CD34 COUNT BLOOD STAT 09/21/2019 7:27 AM SENIOR GRANT WRITER B-cell lymphoma, unspecified B-cell lymphoma type, unspecified body region (HCC) CALCIUM IONIZED WHOLE BLOOD STAT 09/21/2019 7:27 AM SENIOR GRANT WRITER B-cell lymphoma, unspecified B-cell lymphoma type, unspecified body region (HCC) DIFFERENTIAL MANUAL STAT 09/21/2019 7 :27 AM SENIOR GRANT WRITER B-cell lymphoma, unspecified B-cell lymphoma type, unspecified body region (HCC) CBC W AUTO DIFFERENTIAL STAT 09/21/2019 7:27 AM SENIOR GRANT WRITER B-cell lymphoma, unspecified B-cell lymphoma type, unspecified body region (HCC) POTASSIUM BLOOD STAT 09/21/2019 7:27 AM SENIOR GRANT WRITER B-cell lymphoma, unspecified B-cell lymphoma type, unspecified body region (HCC) MAGNESIUM BLOOD STAT 09/21/2019 7:27 AM SENIOR GRANT WRITER B-cell lymphoma, unspecified B-cell lymphoma type, unspecified body region (HCC) TYPE + SCREEN PANEL Routine 09/21/2019 7 :25 AM SENIOR GRANT WRITER B-cell lymphoma, unspecified B-cell lymphoma type, unspecified body region (HCC) COLLECT/PROCESS: AUTO-HPC APHERESIS Routine 09/21/2019 7:00 AM SENIOR GRANT WRITER B-cell lymphoma, unspecified B-cell lymphoma type, unspecified body region (HCC) SPECIAL DIET INSTRUCTIONS TO INCLUDE... Routine 09/21/2019 7:00 AM SENIOR GRANT WRITER SPECIAL DIET INSTRUCTIONS TO INCLUDE... Routine 09/21/2019 7:00 AM SENIOR GRANT WRITER DAILY WEIGHTS Routine 09/21/2019 7:00 AM SENIOR GRANT WRITER B-cell lymphoma, unspecified B-cell lymphoma type, unspecified body region (HCC) AMBULATE / UP AD JAKE Routine 09/21/2019 7:00 AM SENIOR GRANT WRITER B-cell lymphoma, unspecified B-cell lymphoma type, unspecified body region (HCC) DIET REGULAR Routine 09/21/2019 7:00 AM SENIOR GRANT WRITER B-cell lymphoma, unspecified B-cell lymphoma type, unspecified body region (HCC) documented in this encounter Results * (ABNORMAL) DIFFERENTIAL MANUAL (09/21/2019 2:13 PM SENIOR GRANT WRITER) WBC (corrected for NRBC) 66.1 10? 3 /uL 09/21/2019 3:05 PM [facility] Total Cell Count 100 09/21/19 20 3:05 PM [facility] Neutrophils Absolute Manual 56.19(H) 1.60 - 7.00 10? 3 /uL 09/21/2019 3:05 PM [facility] Comment:(BANDS+SEGS) x WBC = NEUT # (ANC) Lymphocyte Absolute Manual 0.66(L) 0.80 - 2.90 10? 3 /uL 09/21/2019 3:05 PM [facility] Monocytes Absolute Manual 4.63(H) 0.14 - 0.66 10? 3 /uL 09/21/2019 3:05 PM [facility] Eosinophils Absolute Manual 3.31(H) 0.00 - 0.22 10? 3 /uL 09/21/2019 3:05 PM [facility] Band % Manual 28(H) 0 - 10 % 09/21/2019 3:05 PM [facility] Neutrophil % Manual 57 30 - 60 % 09/21/2019 3:05 PM [facility] Lymphocyte % Manual 1(L) 20 - 45 % 09/21/2019 3:05 PM [facility] Monocytes % Manual 7 2 - 10 % 09/21/2019 3:05 PM [facility] Eosinophils % Manual 5 1 - 6 % 09/21/2019 3:05 PM [facility] Metamyelocyte % Manual 2(H) 0 % 09/21/2019 3:05 PM [facility] Platelet Estimate Slightly Decreased(A ) Adequate 09/21/2019 3:05 PM [facility] Target Cells 1+(A) None 09/21/2019 3:05 PM [facility] Dohle Bodies Occasional( A) None 09/21/2019 3:05 PM [facility] Blood BLOOD SPECIMEN / Unknown Venipuncture / Unknown 09/21/2019 2:13 PM [facility] 09/21/2019 2:19 PM [facility] - 09/21/2019 7:00 AM Apollo Jha MD [...] 20 mL ??20 mL Intracatheter PRN Tiffanie Nguyen APRN-COREMAKING MACHINE SETTER ?? 20 mL at 09/21/19 1438 ? ? calcium gluconate 5 g in 300 mL NS ??5 g Intravenous PRN Tiffanie Nguyen APRN-COREMAKING MACHINE SETTER ?? Stopped at 09/21/19 1350 ? ? heparin lock flush injection 300 Units ??300 Units Intravenous PRN Tiffanie Nguyen APRN-COREMAKING MACHINE SETTER ?? 300 Units at 09/21/19 1352 Physical [...] unspecified body region Client Specimen ID # ?[id number] Number of Markers 2 ?? Flow Cytometry Results ? Differential Result % Comment Total Viability ??99.0 ?? Lymph/[place]/Gran Region Surface Marker Results % Absolute Count (cell/uL) CD34 0.08 73.260 CD45 96.93 88,763.648 Flow Cytometry Interpretation ?Testing is technical only and does not require an interpretation of results. Disclaimer ?Test performed at [facility], [address] [place], [place], [address]. This test was developed and its performance [...] 1+ (Abnormal) None Ovalocytes Occasional (Abnormal) None Benson Cells 1+ (Abnormal) None Tear Drop Cells [...] Plt levels were acceptable. Post collection Hct=32.7, Hhl=350 . The collection was well tolerated. The goal for this procedure ??is 2-4 x 10e6 CD34 cells/kg. Processed volume during procedure was 45344bC. Yield of collection was 10.4x10e6 CD34/kg. Goal was reached. Apollo Garcia MD, PhD Tiffanie Nguyen PRESCHOOL TEACHER ASSISTANT-COREMAKING MACHINE SETTER LAB - HEMATOLOG Y ORDERABLES [facility] [address] [phone] * (ABNORMAL) CBC W AUTO DIFFERENTIAL (09/21/2019 2:13 PM SENIOR GRANT WRITER) WBC 66.1(HH) 3.5 - 10.5 10? 3 /uL 09/21/2019 2:33 PM [facility] Comment:Results checked and not called to [facility]. RBC 3.65(L) 4.30 - 5.70 10? 6 /uL 09/21/2019 2:33 PM [facility] Hemoglobin 11.0(L) 13.5 - 17.5 g/dL 09/21/2019 2:33 PM [facility] Hematocrit 32.7(L) 39.0 - 50.0 % 09/21/2019 2:33 PM [facility] MCV 89.6 81.0 - 97.0 fL 09/21/2019 2:33 PM [facility] MCH 30.1 28.0 - 34.0 pg 09/21/2019 2:33 PM [facility] MCHC 33.6 32.0 - 36.0 g/dL 09/21/2019 2:33 PM [facility] Platelet Count 135(L) 150 - 400 10? 3 /uL 09/21/2019 2:33 PM [facility] RDW-SD 49.0 36.0 - 50.0 fL 09/21/2019 2:33 PM [facility] RDW-CV 14.8 11.2 - 14.8 % 09/21/2019 2:33 PM [facility] MPV 9.3 9.3 - 12.8 fL 09/21/2019 2:33 PM [facility] nRBC Absolute 0.12(H) 0 10? 3 /uL 09/21/2019 2:33 PM [facility] nRBC Auto 0.2(H) 0 /100 WBC 09/21/2019 2:33 PM [facility] Blood BLOOD SPECIMEN / Unknown Venipuncture / Unknown 09/21/2019 2:13 PM SENIOR GRANT WRITER 09/21/2019 2:19 PM SENIOR GRANT WRITER Narrative [facility] - 09/21/2019 7:00 AM Apollo Jha MD [...] 20 mL ??20 mL Intracatheter PRN Tiffanie Nguyen APRN-COREMAKING MACHINE SETTER ?? 20 mL at 09/21/19 1438 ? ? calcium gluconate 5 g in 300 mL NS ??5 g Intravenous PRN Tiffanie Nguyen APRN-COREMAKING MACHINE SETTER ?? Stopped at 09/21/19 1350 ? ? heparin lock flush injection 300 Units ??300 Units Intravenous PRN Tiffanie Nguyen APRN-COREMAKING MACHINE SETTER ?? 300 Units at 09/21/19 1352 Physical [...] unspecified body region Client Specimen ID # ?[id number] Number of Markers 2 ?? Flow Cytometry Results ? Differential Result % Comment Total Viability ??99.0 ?? Lymph/[place]/Gran Region Surface Marker Results % Absolute Count (cell/uL) CD34 0.08 73.260 CD45 96.93 88,763.648 Flow Cytometry Interpretation ?Testing is technical only and does not require an interpretation of results. Disclaimer ?Test performed at [facility], [address] [place] [address], [address]. This test was developed and its performance [...] Plt levels were acceptable. Post collection Hct=32.7, Pjk=569 . The collection was well tolerated. The goal for this procedure ??is 2-4 x 10e6 CD34 cells/kg. Processed volume during procedure was 06799nJ. Yield of collection was 10.4x10e6 CD34/kg. Goal was reached. Apollo Garcia MD, PhD Tiffanie Nguyen PRESCHOOL TEACHER ASSISTANT-COREMAKING MACHINE SETTER LAB - HEMATOLOG Y ORDERABLES [address] [phone] * (ABNORMAL) DIFFERENTIAL MANUAL (09/21/2019 7:27 AM [facility]IOR [facility] WR[facility]) WBC (corrected for NRBC) 92.5 10? 3 /uL 09/21/2019 8:52 AM [facility] Total Cell Count 100 09/21/19 20 8:52 AM [facility] Neutrophils Absolute Manual 69.38(H) 1.60 - 7.00 10? 3 /uL 09/21/2019 8:52 AM [facility] Comment:(BANDS+SEGS) x WBC = NEUT # (ANC) Lymphocyte Absolute Manual 3.70(H) 0.80 - 2.90 10? 3 /uL 09/21/2019 8:52 AM [facility] Monocytes Absolute Manual 9.25(H) 0.14 - 0.66 10? 3 /uL 09/21/2019 8:52 AM [facility] Eosinophils Absolute Manual 4.63(H) 0.00 - 0.22 10? 3 /uL 09/21/2019 8:52 AM [facility] Basophil Absolute Manual 1.85(H) 0.00 - 0.06 10? 3 /uL 09/21/2019 8:52 AM [facility] Band % Manual 18(H) 0 - 10 % 09/21/2019 8:52 AM [facility] Neutrophil % Manual 57 30 - 60 % 09/21/2019 8:52 AM [facility] Lymphocyte % Manual 4(L) 20 - 45 % 09/21/2019 8:52 AM [facility] Monocytes % Manual 10 2 - 10 % 09/21/2019 8:52 AM [facility] Eosinophils % Manual 5 1 - 6 % 09/21/2019 8:52 AM [facility] Basophils % Manual 2 0 - 3 % 09/21/2019 8:52 AM [facility] Atypical Lymphocyte % Manual 1(H) 0 % 09/21/2019 8:52 AM [facility] Metamyelocyte % Manual 1(H) 0 % 09/21/2019 8:52 AM [facility] Myelocytes % Manual 2(H) 0 % 09/21/2019 8:52 AM [facility] nRBC Manual 1(H) 0 /100 WBC 09/21/2019 8:52 AM [facility] Platelet Estimate Adequate Adequate 09/21/2019 8:52 AM [facility] Polychromasia 1+(A) None 09/21/2019 8:52 AM [facility] Ovalocytes Occasional( A) None 09/21/2019 8:52 AM [facility] Sravani Cells 1+(A) None 09/21/2019 8:52 AM [facility] Tear Drop Cells Occasional( A) None 09/21/2019 8:52 AM [facility] Toxic Granulation 1+(A) None 09/21/2019 8:52 AM [facility] Dohle Bodies 1+(A) None 09/21/2019 8:52 AM [facility] Blood BLOOD SPECIMEN / Unknown Venipuncture / Unknown 09/21/2019 7:27 AM [facility] 09/21/2019 7:39 AM [facility] - 09/21/2019 7:00 AM Apollo Jha MD [...] 20 mL ??20 mL Intracatheter PRN Tiffanie Nguyen APRN-COREMAKING MACHINE SETTER ?? 20 mL at 09/21/19 1438 ? ? calcium gluconate 5 g in 300 mL NS ??5 g Intravenous PRN Tiffanie Nguyen APRN-COREMAKING MACHINE SETTER ?? Stopped at 09/21/19 1350 ? ? heparin lock flush injection 300 Units ??300 Units Intravenous PRN Tiffanie Nguyen APRN-COREMAKING MACHINE SETTER ?? 300 Units at 09/21/19 1352 Physical [...] unspecified body region Client Specimen ID # ?[id number] Number of Markers 2 ?? Flow Cytometry Results ? Differential Result % Comment Total Viability ??99.0 ?? Lymph/[place]/Gran Region Surface Marker Results % Absolute Count (cell/uL) CD34 0.08 73.260 CD45 96.93 88,763.648 Flow Cytometry Interpretation ?Testing is technical only and does not require an interpretation of results. Disclaimer ?Test performed at [facility], [address] [place] [address], [id number]. This test was developed and its performance [...] 1+ (Abnormal) None Ovalocytes Occasional (Abnormal) None Benson Cells 1+ (Abnormal) None Tear Drop Cells [...] Plt levels were acceptable. Post collection Hct=32.7, Wnw=739 . The collection was well tolerated. The goal for this procedure ??is 2-4 x 10e6 CD34 cells/kg. Processed volume during procedure was 31403rE. Yield of collection was 10.4x10e6 CD34/kg. Goal was reached. Apollo Garcia MD, PhD Tiffanie Nguyen PRESCHOOL TEACHER ASSISTANT-COREMAKING MACHINE SETTER LAB - [place] [address], [facility] [phone] * FLOW CYTOMETRY CD34 COUNT BLOOD (09/21/2019 7:27 AM [facility]) Reason for test B-cell lymphoma, unspecified B-cell lymphoma type, unspecified body region 09/21/2019 10:14 AM [facility] Client Specimen ID # [id number] 09/21/2019 10:14 AM [facility] Number of Markers 2 09/21/2019 10:14 AM [facility] Flow Cytometry Results Differential Result % Comment Total Viability 99.0 Lymph/[place]/Gran Region Surface Marker Results % Absolute Count (cell/uL) CD34 0.08 73.260 CD45 96.93 88,763.648 09/21/2019 10:14 AM [facility] Flow Cytometry Interpretation Testing is technical only and does not require an interpretation of results. 09/21/2019 10:14 AM [facility] Disclaimer Test performed at [facility], [address] [place] [address], [id number]. This test was developed and its performance [...] high complexity clinical testing. 09/21/2019 10:14 AM [facility] Embedded Images 0 10:14 AM [facility] Blood BLOOD SPECIMEN / Unknown Venipuncture / Unknown 09/21/2019 7:27 AM [facility] 09/21/2019 8:15 AM [facility] PATHOLOGY LAB - 09/21/2019 7:00 AM Apollo [...] 20 mL ??20 mL Intracatheter PRN Tiffanie Nguyen APRN-CNP ?? 20 mL at 09/21/19 1438 ? ? calcium gluconate 5 g in 300 mL NS ??5 g Intravenous PRN Tiffanie Nguyen APRN-COREMAKING MACHINE SETTER ?? Stopped at 09/21/19 1350 ? ? heparin lock flush injection 300 Units ??300 Units Intravenous PRN Tiffanie Nguyen APRN-COREMAKING MACHINE SETTER ?? 300 Units at 09/21/19 1352 Physical [...] unspecified body region Client Specimen ID # ?[id number] Number of Markers 2 ?? Flow Cytometry Results ? Differential Result % Comment Total Viability ??99.0 ?? Lymph/[place]/Gran Region Surface Marker Results % Absolute Count (cell/uL) CD34 0.08 73.260 CD45 96.93 88,763.648 Flow Cytometry Interpretation ?Testing is technical only and does not require an interpretation of results. Disclaimer ?Test performed at [facility], [address] [place] [address], [id number]. This test was developed and its performance [...] 1+ (Abnormal) None Ovalocytes Occasional (Abnormal) None Benson Cells 1+ (Abnormal) None Tear Drop Cells [...] Plt levels were acceptable. Post collection Hct=32.7, Afn=759 . The collection was well tolerated. The goal for this procedure ??is 2-4 x 10e6 CD34 cells/kg. Processed volume during procedure was 31766gZ. Yield of collection was 10.4x10e6 CD34/kg. Goal was reached. Apollo Garcia MD, PhD Bill Ferrera MD LAB - PATHOLOGY/CY TOLOGY ORDERABLES [facility] [address] [facility] [place] [address], [facility] [phone] * (ABNORMAL) CALCIUM IONIZED WHOLE BLOOD (09/21/2019 7:27 AM [facility]) Ionized Calcium Whole Blood 1.19 mmol/L 09/21/2019 7:57 AM [facility] Adjusted Ionized Calcium 1.15(L) 1.19 - 1.34 mmol/L 09/21/2019 7:57 AM [facility] pH Whole Blood 7.33(L) 7.35 - 7.45 09/21/2019 7:57 AM [facility] Blood WHOLE BLOOD SPECIMEN / Unknown Venipuncture / Unknown 09/21/2019 7:27 AM [facility] 09/21/2019 7:39 AM [facility] Narrative [facility] - 09/21/2019 7:00 AM S[facility] WRITER Apollo Garcia MD ? 09/22/2019 ??5:04 PM [...] 20 mL ??20 mL Intracatheter PRN Tiffanie Nguyen APRN-CNP ?? 20 mL at 09/21/19 1438 ? ? calcium gluconate 5 g in 300 mL NS ??5 g Intravenous PRN Tiffanie Nguyen APRN-CNP ?? Stopped at 09/21/19 1350 ? ? heparin lock flush injection 300 Units ??300 Units Intravenous PRN Tiffanie Nguyen APRN-CNP ?? 300 Units at 09/21/19 1352 [...] unspecified body region Client Specimen ID # ?[id number] Number of Markers 2 ?? Flow Cytometry Results ? Differential Result % Comment Total Viability ??99.0 ?? Lymph/[place]/Gran Region Surface Marker Results % Absolute Count (cell/uL) CD34 0.08 73.260 CD45 96.93 88,763.648 Flow Cytometry Interpretation ?Testing is technical only and does not require an interpretation of results. Disclaimer ?Test performed at [facility], [address] [place] [address], [id number]. This test was developed and its performance [...] Plt levels were acceptable. Post collection Hct=32.7, Dmz=747 . The collection was well tolerated. The goal for this procedure ??is 2-4 x 10e6 CD34 cells/kg. Processed volume during procedure was 32108mW. Yield of collection was 10.4x10e6 CD34/kg. Goal was reached. Apollo Garcia MD, PhD Bill Ferrera MD LAB - CHEMISTRY OR DERABLES [address] [phone] * (ABNORMAL) CBC W AUTO DIFFERENTIAL (09/21/2019 7:27 AM [facility]) WBC 92.5(HH) 3.5 - 10.5 10? 3 /uL 09/21/2019 7:55 AM [facility] Comment:Results checked and not called to [facility]. RBC 4.26(L) 4.30 - 5.70 10? 6 /uL 09/21/2019 7:55 AM [facility] Hemoglobin 12.6(L) 13.5 - 17.5 g/dL 09/21/2019 7:55 AM [facility] Hematocrit 38.3(L) 39.0 - 50.0 % 09/21/2019 7:55 AM [facility] MCV 89.9 81.0 - 97.0 fL 09/21/2019 7:55 AM [facility] MCH 29.6 28.0 - 34.0 pg 09/21/2019 7:55 AM [facility] MCHC 32.9 32.0 - 36.0 g/dL 09/21/2019 7:55 AM [facility] Platelet Count 303 150 - 400 10? 3 /uL 09/21/2019 7:55 AM [facility] RDW-SD 48.9 36.0 - 50.0 fL 09/21/2019 7:55 AM [facility] RDW-CV 14.9(H) 11.2 - 14.8 % 09/21/2019 7:55 AM [facility] MPV 10.9 9.3 - 12.8 fL 09/21/2019 7:55 AM [facility] nRBC Absolute 0.14(H) 0 10? 3 /uL 09/21/2019 7:55 AM [facility] nRBC Auto 0.2(H) 0 /100 WBC 09/21/2019 7:55 AM [facility] Blood BLOOD SPECIMEN / Unknown Venipuncture / Unknown 09/21/2019 7:27 AM [facility] 09/21/2019 7:39 AM [facility] - 09/21/2019 7:00 AM [facility] Apollo Garcia MD ? 09/22/2019 ??5:04 PM [...] 20 mL ??20 mL Intracatheter PRN Tiffanie Nguyen APRN-COREMAKING MACHINE SETTER ?? 20 mL at 09/21/19 1438 ? ? calcium gluconate 5 g in 300 mL NS ??5 g Intravenous PRN Tiffanie Nguyen APRN-CNP ?? Stopped at 09/21/19 1350 ? ? heparin lock flush injection 300 Units ??300 Units Intravenous PRN Tiffanie Nguyen APRN-CNP ?? 300 Units at 09/21/19 1352 [...] unspecified body region Client Specimen ID # ?[id number] Number of Markers 2 ?? Flow Cytometry Results ? Differential Result % Comment Total Viability ??99.0 ?? Lymph/[place]/Gran Region Surface Marker Results % Absolute Count (cell/uL) CD34 0.08 73.260 CD45 96.93 88,763.648 Flow Cytometry Interpretation ?Testing is technical only and does not require an interpretation of results. Disclaimer ?Test performed at [facility], [address] [place] [address], [id number]. This test was developed and its performance [...] 1+ (Abnormal) None Ovalocytes Occasional (Abnormal) None Benson Cells 1+ (Abnormal) None Tear Drop Cells [...] 0 /100 WBC DIFFERENTIAL MANUAL Collection Time: 02/18/20 ??2:13 PM Result Value Ref Range WBC [...] Plt levels were acceptable. Post collection Hct=32.7, Gvp=126 . The collection was well tolerated. The goal for this procedure ??is 2-4 x 10e6 CD34 cells/kg. Processed volume during procedure was 44753jA. Yield of collection was 10.4x10e6 CD34/kg. Goal was reached. Apollo Garcia MD, PhD Tiffanie Ngyuen PRESCHOOL TEACHER ASSISTANT-COREMAKING MACHINE SETTER LAB - HEMATOLOG Y ORDERABLES [address] [phone] * POTASSIUM BLOOD (09/21/2019 7:27 AM [facility]) Potassium 4.1 3.5 - 4.5 mmol/L 09/21/2019 7:57 AM S[facility] WR[facility] Blood BLOOD SPECIMEN / Unknown Venipuncture / Unknown 09/21/2019 7:27 AM [facility] 09/21/2019 7:39 AM [facility] Narrative [facility] - 09/21/2019 7:00 AM S[facility] WRITER Apollo Garcia MD ? 09/22/2019 ??5:04 PM [...] 20 mL ??20 mL Intracatheter PRN Tiffanie Nguyen APRN-COREMAKING MACHINE SETTER ?? 20 mL at 09/21/19 1438 ? ? calcium gluconate 5 g in 300 mL NS ??5 g Intravenous PRN Tiffanie Nguyen APRN-COREMAKING MACHINE SETTER ?? Stopped at 09/21/19 1350 ? ? heparin lock flush injection 300 Units ??300 Units Intravenous PRN Tiffanie Nguyen APRN-COREMAKING MACHINE SETTER ?? 300 Units at 09/21/19 1352 Physical [...] unspecified body region Client Specimen ID # ?[id number] Number of Markers 2 ?? Flow Cytometry Results ? Differential Result % Comment Total Viability ??99.0 ?? Lymph/[place]/Gran Region Surface Marker Results % Absolute Count (cell/uL) CD34 0.08 73.260 CD45 96.93 88,763.648 Flow Cytometry Interpretation ?Testing is technical only and does not require an interpretation of results. Disclaimer ?Test performed at [facility], [address] [place] [address], [id number]. This test was developed and its performance [...] 1+ (Abnormal) None Ovalocytes Occasional (Abnormal) None Benson Cells 1+ (Abnormal) None Tear Drop Cells [...] Plt levels were acceptable. Post collection Hct=32.7, Tzd=108 . The collection was well tolerated. The goal for this procedure ??is 2-4 x 10e6 CD34 cells/kg. Processed volume during procedure was 19186rI. Yield of collection was 10.4x10e6 CD34/kg. Goal was reached. Apollo Garcia MD, PhD Tiffanie Nguyen PRESCHOOL TEACHER ASSISTANT-COREMAKING MACHINE SETTER LAB - CHEMISTRY ORDERABLES [address] [phone] * MAGNESIUM BLOOD (09/21/2019 7:27 AM S[facility]) Magnesium 1.8 1.6 - 2.6 mg/dL 09/21/2019 7:57 AM [facility] Blood BLOOD SPECIMEN / Unknown Venipuncture / Unknown 09/21/2019 7:27 AM [facility] WR[facility] 09/21/2019 7:39 AM S[facility] WR[facility] Narrative [facility] - 09/21/2019 7:00 AM S[facility] WR[facility] Apollo Garcia MD ? 09/22/2019 ??5:04 PM [...] 20 mL ??20 mL Intracatheter PRN Tiffanie Nguyen APRN-CNP ?? 20 mL at 09/21/19 1438 ? ? calcium gluconate 5 g in 300 mL NS ??5 g Intravenous PRN Tiffanie Nguyen APRN-CNP ?? Stopped at 09/21/19 1350 ? ? heparin lock flush injection 300 Units ??300 Units Intravenous PRN Tiffanie Nguyen, PRESCHOOL TEACHER ASSISTANT-COREMAKING MACHINE SETTER ?? 300 Units at 09/21/19 1352 Physical [...] unspecified body region Client Specimen ID # ?[id number] Number of Markers 2 ?? Flow Cytometry Results ? Differential Result % Comment Total Viability ??99.0 ?? Lymph/[place]/Gran Region Surface Marker Results % Absolute Count (cell/uL) CD34 0.08 73.260 CD45 96.93 88,763.648 Flow Cytometry Interpretation ?Testing is technical only and does not require an interpretation of results. Disclaimer ?Test performed at [facility], [address] [place] [address], [id number]. This test was developed and its performance [...] Plt levels were acceptable. Post collection Hct=32.7, Wul=060 . The collection was well tolerated. The goal for this procedure ??is 2-4 x 10e6 CD34 cells/kg. Processed volume during procedure was 50778zP. Yield of collection was 10.4x10e6 CD34/kg. Goal was reached. Apollo Garcia MD, PhD Tiffanie Nguyen PRESCHOOL TEACHER ASSISTANT-COREMAKING MACHINE SETTER LAB - CHEMISTRY ORDERABLES [address] [phone] * TYPE AND SCREEN (09/21/2019 7:25 AM S[facility] WR[facility]) Antibody Screen NEG 0 8:54 AM S[facility]IOR [facility] WRITER [facility] ABO Rh A POS 09/21/2019 8:54 AM [facility] Blood Bank BLOOD SPECIMEN / Unknown Venipuncture / Unknown 09/21/2019 7:25 AM [facility] WR[facility] 09/21/2019 8:15 AM [facility] WR[facility] Narrative [facility] - 09/21/2019 7:00 AM Apollo Jha MD ? 09/22/2019 ??5:04 PM Cellular Therapy Collections Progress Note Marecllo Guillen 09/21/2019 Diagnosis: 1. B-cell lymphoma, unspecified [...] 20 mL ??20 mL Intracatheter PRN Tiffanie Nguyen APRN-CNP ?? 20 mL at 09/21/19 1438 ? ? calcium gluconate 5 g in 300 mL NS ??5 g Intravenous PRN Tiffanie Nguyen APRN-CNP ?? Stopped at 09/21/19 1350 ? ? heparin lock flush injection 300 Units ??300 Units Intravenous PRN Tiffanie Nguyen APRN-COREMAKING MACHINE SETTER ?? 300 Units at 09/21/19 1352 Physical [...] unspecified body region Client Specimen ID # ?[id number] Number of Markers 2 ?? Flow Cytometry Results ? Differential Result % Comment Total Viability ??99.0 ?? Lymph/[place]/Gran Region Surface Marker Results % Absolute Count (cell/uL) CD34 0.08 73.260 CD45 96.93 88,763.648 Flow Cytometry Interpretation ?Testing is technical only and does not require an interpretation of results. Disclaimer ?Test performed at [facility], [address] [place] [address], [id number]. This test was developed and its performance [...] Plt levels were acceptable. Post collection Hct=32.7, Tef=037 . The collection was well tolerated. The goal for this procedure ??is 2-4 x 10e6 CD34 cells/kg. Processed volume during procedure was 97133bZ. Yield of collection was 10.4x10e6 CD34/kg. Goal was reached. Apollo Garcia MD, PhD Tiffanie Nguyen PRESCHOOL TEACHER ASSISTANT-COREMAKING MACHINE SETTER LAB - BLOOD BAN K ORDERABLES [facility] [address] * SPECIAL TRAY REQUEST (09/21/2019 7:00 AM SENIOR [facility] WRITER) Narrative Apollo Garcia MD - 09/21/2019 7:00 AM S[facility]IOR [facility] WRITER Apollo Garcia MD ? 09/22/2019 ??5:04 PM Cellular Therapy Collections Progress Note Marcello Donal Guillen 09/21/2019 Diagnosis: 1. B-cell lymphoma, unspecified [...] 20 mL ??20 mL Intracatheter PRN Tiffanie Nguyen APRN-COREMAKING MACHINE SETTER ?? 20 mL at 09/21/19 1438 ? ? calcium gluconate 5 g in 300 mL NS ??5 g Intravenous PRN Tiffanie Nguyen APRN-COREMAKING MACHINE SETTER ?? Stopped at 09/21/19 1350 ? ? heparin lock flush injection 300 Units ??300 Units Intravenous PRN Tiffanie Nguyen APRN-COREMAKING MACHINE SETTER ?? 300 Units at 09/21/19 1352 Physical [...] unspecified body region Client Specimen ID # ?[id number] Number of Markers 2 ?? Flow Cytometry Results ? Differential Result % Comment Total Viability ??99.0 ?? Lymph/[place]/Gran Region Surface Marker Results % Absolute Count (cell/uL) CD34 0.08 73.260 CD45 96.93 88,763.648 Flow Cytometry Interpretation ?Testing is technical only and does not require an interpretation of results. Disclaimer ?Test performed at [facility], [address] [place] [address], [facility]. This test was developed and its performance [...] Plt levels were acceptable. Post collection Hct=32.7, Kuf=686 . The collection was well tolerated. The goal for this procedure ??is 2-4 x 10e6 CD34 cells/kg. Processed volume during procedure was 17757uF. Yield of collection was 10.4x10e6 CD34/kg. Goal was reached. Apollo Garcia MD, PhD Bill Ferrera MD NURSING - DIET * SPECIAL TRAY REQUEST (09/21/2019 7:00 AM SENIOR [facility] WRITER) Narrative Apollo Garcia MD - 09/21/2019 7:00 AM S[facility] WRITER Apollo Garcia MD ? 09/22/2019 ??5:04 PM [...] 20 mL ??20 mL Intracatheter PRN Tiffanie Nguyen APRN-CNP ?? 20 mL at 09/21/19 1438 ? ? calcium gluconate 5 g in 300 mL NS ??5 g Intravenous PRN Tiffanie Nguyen APRN-CNP ?? Stopped at 09/21/19 1350 ? ? heparin lock flush injection 300 Units ??300 Units Intravenous PRN Tiffanie Nguyen, PRESCHOOL TEACHER ASSISTANT-COREMAKING MACHINE SETTER ?? 300 Units at 09/21/19 1352 Physical [...] unspecified body region Client Specimen ID # ?[id number] Number of Markers 2 ?? Flow Cytometry Results ? Differential Result % Comment Total Viability ??99.0 ?? Lymph/[place]/Gran Region Surface Marker Results % Absolute Count (cell/uL) CD34 0.08 73.260 CD45 96.93 88,763.648 Flow Cytometry Interpretation ?Testing is technical only and does not require an interpretation of results. Disclaimer ?Test performed at [facility], [address] [place] [address], [address]. This test was developed and its performance [...] 1+ (Abnormal) None Ovalocytes Occasional (Abnormal) None Benson Cells 1+ (Abnormal) None Tear Drop Cells [...] Plt levels were acceptable. Post collection Hct=32.7, Vxb=413 . The collection was well tolerated. The goal for this procedure ??is 2-4 x 10e6 CD34 cells/kg. Processed volume during procedure was 86538aP. Yield of collection was 10.4x10e6 CD34/kg. Goal was reached. Apollo Garcia MD, PhD Bill Ferrera MD NURSING - DIET * DIET REGULAR (09/21/2019 7:00 AM S[facility]IOR [facility] WRITER) Narrative [facility] - 09/21/2019 7:00 AM S[facility]IOR [facility] WRITER Apollo Garcia MD ? 09/22/2019 ??5:04 PM [...] 20 mL ??20 mL Intracatheter PRN Tiffanie Nguyen APRN-CNP ?? 20 mL at 09/21/19 1438 ? ? calcium gluconate 5 g in 300 mL NS ??5 g Intravenous PRN Tiffanie Nguyen APRN-COREMAKING MACHINE SETTER ?? Stopped at 09/21/19 1350 ? ? heparin lock flush injection 300 Units ??300 Units Intravenous PRN Tiffanie Nguyen APRN-COREMAKING MACHINE SETTER ?? 300 Units at 09/21/19 1352 Physical [...] unspecified body region Client Specimen ID # ?[id number] Number of Markers 2 ?? Flow Cytometry Results ? Differential Result % Comment Total Viability ??99.0 ?? Lymph/[place]/Gran Region Surface Marker Results % Absolute Count (cell/uL) CD34 0.08 73.260 CD45 96.93 88,763.648 Flow Cytometry Interpretation ?Testing is technical only and does not require an interpretation of results. Disclaimer ?Test performed at [facility], [address] [place] [address], [id number]. This test was developed and its performance [...] 1+ (Abnormal) None Ovalocytes Occasional (Abnormal) None Benson Cells 1+ (Abnormal) None Tear Drop Cells [...] Plt levels were acceptable. Post collection Hct=32.7, Rzu=504 . The collection was well tolerated. The goal for this procedure ??is 2-4 x 10e6 CD34 cells/kg. Processed volume during procedure was 46463uL. Yield of collection was 10.4x10e6 CD34/kg. Goal was reached. Apollo Garcia MD, PhD Tiffanie Nguyen PRESCHOOL TEACHER ASSISTANT-COREMAKING MACHINE SETTER DIET ORDERABLES [facility] * AMBULATE / UP AD JAKE (09/21/2019 7:00 AM SENIOR [facility] WRITER) Narrative Apollo Garcia MD - 09/21/2019 7:00 AM Apollo Jah MD ? 09/22/2019 ??5:04 PM Cellular Therapy [...] 20 mL ??20 mL Intracatheter PRN Tiffanie Nguyen APRN-CNP ?? 20 mL at 09/21/19 1438 ? ? calcium gluconate 5 g in 300 mL NS ??5 g Intravenous PRN Tiffanie Nguyen APRN-CNP ?? Stopped at 09/21/19 1350 ? ? heparin lock flush injection 300 Units ??300 Units Intravenous PRN Tiffanie Nguyen APRN-COREMAKING MACHINE SETTER ?? 300 Units at 09/21/19 1352 Physical [...] unspecified body region Client Specimen ID # ?[id number] Number of Markers 2 ?? Flow Cytometry Results ? Differential Result % Comment Total Viability ??99.0 ?? Lymph/[place]/Gran Region Surface Marker Results % Absolute Count (cell/uL) CD34 0.08 73.260 CD45 96.93 88,763.648 Flow Cytometry Interpretation ?Testing is technical only and does not require an interpretation of results. Disclaimer ?Test performed at [facility], [address] [place] [address], [address]. This test was developed and its performance [...] Plt levels were acceptable. Post collection Hct=32.7, Nff=196 . The collection was well tolerated. The goal for this procedure ??is 2-4 x 10e6 CD34 cells/kg. Processed volume during procedure was 59017qN. Yield of collection was 10.4x10e6 CD34/kg. Goal was reached. Apollo Garcia MD, PhD Tiffanie Nguyen PRESCHOOL TEACHER ASSISTANT-COREMAKING MACHINE SETTER NURSING - ACTIV ITY * DAILY WEIGHTS (09/21/2019 7:00 AM SENIOR [facility] WRITER) Narrative Apollo Garcia MD - 09/21/2019 7:00 AM SENIOR [employer] WRITER Apollo Garcia MD ? 09/22/2019 ??5:04 PM [...] 20 mL ??20 mL Intracatheter PRN Tiffanie Nguyen APRN-COREMAKING MACHINE SETTER ?? 20 mL at 09/21/19 1438 ? ? calcium gluconate 5 g in 300 mL NS ??5 g Intravenous PRN Tiffanie Nguyen APRN-COREMAKING MACHINE SETTER ?? Stopped at 09/21/19 1350 ? ? heparin lock flush injection 300 Units ??300 Units Intravenous PRN Tiffanie Nguyen APRN-COREMAKING MACHINE SETTER ?? 300 Units at 09/21/19 1352 Physical [...] unspecified body region Client Specimen ID # ?[id number] Number of Markers 2 ?? Flow Cytometry Results ? Differential Result % Comment Total Viability ??99.0 ?? Lymph/[place]/Gran Region Surface Marker Results % Absolute Count (cell/uL) CD34 0.08 73.260 CD45 96.93 88,763.648 Flow Cytometry Interpretation ?Testing is technical only and does not require an interpretation of results. Disclaimer ?Test performed at [facility], [address] [place] [address], [facility]. This test was developed and its performance [...] Plt levels were acceptable. Post collection Hct=32.7, Jju=205 . The collection was well tolerated. The goal for this procedure ??is 2-4 x 10e6 CD34 cells/kg. Processed volume during procedure was [id number]. Yield of collection was 10.4x10e6 CD34/kg. Goal was reached. Apollo Garcia MD, PhD Tiffanie Seymour Patrick PRESCHOOL TEACHER ASSISTANT-COREMAKING MACHINE SETTER NURSING - VITAL SIGNS AND ASSESSMENT * COLLECT/PROCESS: AUTO-HPC APHERESIS (09/21/2019 7:00 AM SENIOR GRANT WRITER) BLOOD SPECIMEN / Unknown Narrative [facility] - 09/21/2019 7:00 AM SENIOR GRANT WRITER Apollo Garcia MD ? 09/22/2019 ??5:04 PM [...] 20 mL ??20 mL Intracatheter PRN Tiffanie Nguyen APRN-CNP ?? 20 mL at 09/21/19 1438 ? ? calcium gluconate 5 g in 300 mL NS ??5 g Intravenous PRN Tiffanie Nguyen APRN-CNP ?? Stopped at 09/21/19 1350 ? ? heparin lock flush injection 300 Units ??300 Units Intravenous PRN Tiffanie Nguyen, PRESCHOOL TEACHER ASSISTANT-COREMAKING MACHINE SETTER ?? 300 Units at 09/21/19 1352 Physical [...] unspecified body region Client Specimen ID # ?[id number] Number of Markers 2 ?? Flow Cytometry Results ? Differential Result % Comment Total Viability ??99.0 ?? Lymph/[place]/Gran Region Surface Marker Results % Absolute Count (cell/uL) CD34 0.08 73.260 CD45 96.93 88,763.648 Flow Cytometry Interpretation ?Testing is technical only and does not require an interpretation of results. Disclaimer ?Test performed at [facility], [address] [place] [address], [address]. This test was developed and its performance [...] 1+ (Abnormal) None Ovalocytes Occasional (Abnormal) None Benson Cells 1+ (Abnormal) None Tear Drop Cells [...] Plt levels were acceptable. Post collection Hct=32.7, Rxq=917 . The collection was well tolerated. The goal for this procedure ??is 2-4 x 10e6 CD34 cells/kg. Processed volume during procedure was [id number]. Yield of collection was 10.4x10e6 CD34/kg. Goal was reached. Apollo Garcia MD, PhD Tiffanie Nguyen PRESCHOOL TEACHER ASSISTANT-COREMAKING MACHINE SETTER LAB - BLOOD BAN K ORDERABLES Performing Organization Address City/State/[facility] Co de Phone Number [address] [phone] documented in this encounter Visit Diagnoses Diagnosis B-cell lymphoma, unspecified B-cell lymphoma type, unspecified body region (HCC)- Primary documented in this encounter Administered Medications Inactive Administered Medications - up to 3 most recent administrations Medication Order MAR Action Action Date Dose Rate Site 0.9% NaCl injection 20 mL 20 mL, Intracatheter, PRN, Other, to keep central lines open, Starting on Fri09/21/19 at 0707, Until Fri09/22/19 at 0144 $ Given 09/21/2019 2:38 PM SENIOR GRANT WRITER 20 mL $ Given 09/21/2019 7:27 AM SENIOR GRANT WRITER 20 mL calcium gluconate 5 g in 300 mL NS 5 g, at 25-100 mL/hr, Intravenous, PRN, per calcium replacement during apheresis, Starting on Fri09/21/19 at 0707, Until Fri09/22/19 at 0144, Infuse IVPB at 25-100 ml/hour per IVAC during collection for calcium replacement during apheresis. Rate Change 09/21/2019 11:48 AM SENIOR GRANT WRITER 110 mL/hr $ New Bag/Syringe 09/21/2019 11:48 AM SENIOR GRANT WRITER 5 g 100 m L/hr Rate Change 09/21/2019 11:29 AM SENIOR GRANT WRITER 110 mL/hr filgrastim (NEUPOGEN) injection 1,200 mcg 1,200 mcg (rounded from 1,198 mcg = 10 mcg/kg ? 119.8 kg Treatment plan Recorded weight), Subcutaneous, ONCE, 1 dose, On Fri09/21/19 at 0715 $ Given 09/21/2019 8:25 AM SENIOR GRANT WRITER 1,200 mcg Abdominal Tissue heparin lock flush injection 300 Units 300 Units, Intravenous, PRN, Other, as needed, Starting on Fri09/21/19 at 0707, Until Fri09/22/19 at 0144 $ Given 09/21/2019 1:52 PM SENIOR GRANT WRITER 300 Units $ Given 09/21/2019 1:51 PM SENIOR GRANT WRITER 300 Units $ Given 09/21/2019 1:50 PM SENIOR GRANT WRITER 300 Units documented in this encounter Care Teams Heater Mechanic Relationship Specialty Start Date End Date Ran Nuñez MD [address] [place] [address] PCP - General Family Medicine 03/22/19 12/22/20 Hillary Apple MD [address] [place] [address] Hematology and Oncology 03/17/19 Bill Ferrera MD [address] [place] [address] Hematology and Oncology 03/17/19 08/27/21 Tony Dumont MD [facility] [place] [address] Hematology and Oncology 03/17/19 Shalini Segal MD [facility] [place] [address] Hematology and Oncology 03/17/19 09/29/19 Karie Jones, RN Registered Nurse 03/17/19 09/21/19 Maryjo Reinoso LCSW Cat Dog Or Other Pet Groomer 03/17/19 Madyson Clay, PharmD 03/17/19 Dana Lala, PRESCHOOL TEACHER ASSISTANT-SPORTS ATTORNEY [address] [place] [address] 2nd [place] [address] Oncology 03/17/19 Tiffanie Nguyen, PRESCHOOL TEACHER ASSISTANT-COREMAKING MACHINE SETTER [address] [place] [address] [place] [address] Family Medicine 03/17/19 Stephanie Mahoney, RN Registered Nurse 03/17/19 10/29/21 Alycia Galvan, ROSEMARY 03/17/19 10/29/21 Cesar Tavares MD [address] [place] [address] [place] [address] Referring Physician Medical Oncology 03/23/19 Karie Jones, RN Registered Nurse 06/08/19 10/29/21 documented as of this encounter
--- OUTSIDE RECORDS SUMMARY | 2024-08-18 00:31 | XMS_ITS | Encounter Summary ---
Author Organization [facility] Address [address] [facility] [place] [address] Care Team Providers Care Coding Machine Operator Name Role Phone Hillary Apple MD Unavailable [phone] Bill Ferrera MD Unavailable [phone] Tony Dumont MD Unavailable [phone] Maryjo Reinoso [facility] Unavailable Unavailable Madyson Clay PharmD Unavailable Unavaila Dana Galicia SCANNER OPERATOR-CARPENTER/LABOR Unavailable [phone] Tiffanie Nguyen SCANNER OPERATOR-CLINICAL PSYCHOLOGY PROFESSOR Unavailable [phone] Stephanie Mahoney RN Unavailable Unavailable Alycia Galvan RN Unavailable UnavailRan Mejía MD Primary Care Provider Cesar Tavares MD Unavailable [phone] Karie Jones RN Unavailable Unavailable Joy Bob Unavailable Fanta Addison Weinstein PharmD Unavailable Unavailab le Encounter Details Date Type Department Care Team (Late st Contact Info) Description 10/01/2019 Orders Only [facility] B[facility] CLINIC [address] [place] [address] Savanah Bolton APRN-CLINICAL PSYCHOLOGY PROFESSOR [address] [facility] [place] [place] [address] Diffuse large B-cell lymphoma, unspecified body region [...] Info) Description 08/26/2024 11:00 AM GENERAL OFFICE ASSISTANT Office Visit [facility] - Pulmonology [address] [place] [address], [place] [address] Andrew Francis MD [address] [place] [address] 2L DIV OF PULMONARY/[place] [address] documented as of this encounter Visit Diagnoses Diagnosis Diffuse large B-cell lymphoma, unspecified body region (HCC)- Primary documented in this encounter Care Teams Coding Machine Operator Relationship Specialty Start Date End Date Ran Nuñez MD [address] [place] [address] PCP - General Family Medicine 03/22/19 12/22/20 Hillary Apple MD [address] [place] [address] Hematology and Oncology 03/17/19 Bill Ferrera MD [address] [place] [address] Hematology and Oncology 03/17/19 08/27/21 Tony Dumont MD [address] [place] [address] Hematology and Oncology 03/17/19 Maryjo Reinoso, NEUROLOGY TECH Manager Collection 03/17/19 Madyson Clay, PharmD 03/17/19 Dana Lala, SCANNER OPERATOR-CARPENTER/LABOR [address] [facility] 2nd [place] [address] Oncology 03/17/19 Tiffanie Nguyen, SCANNER OPERATOR-CLINICAL PSYCHOLOGY PROFESSOR [address] [place] [address] Family Medicine 03/17/19 Stephanie Mahoney, RN Registered Nurse 03/17/19 10/29/21 Alycia Galvan, ROSEMARY 03/17/19 10/29/21 Cesar Tavares MD [address] [place] [address] [place] [address] Referring Physician Medical Oncology 03/23/19 Karie Jones, RN Registered Nurse 06/08/19 10/29/21 Joy Bob 09/22/19 Addison Shea, PharmD Pharmacist 09/22/19 10/29/21 documented as of this encounter
--- OUTSIDE RECORDS SUMMARY | 2024-08-18 00:31 | XMS_ITS | Encounter Summary ---
Author Organization [facility] Address [address] [facility] [place] [address] Care Team Providers Care Financial Management Analyst Name Role Phone Hillary Apple MD Unavailable [phone] Bill Ferrera MD Unavailable [phone] Tony Dumont MD Unavailable [phone] Maryjo Reinoso [facility] Unavailable Unavailable Madyson Clay PharmD Unavailable Unavaila Dana Galicia GRAIN ORIGINATION SPECIALIST-POULTRY FARMER EGG Unavailable [phone] Tiffanie Nguyen APRN-SOUND INSTALLATION WORKER Unavailable [phone] Stephanie Mahoney RN Unavailable Unavailable Alycia Galvan RN Unavailable UnavailRan Mejía MD Primary Care Provider Cesar Tavares MD Unavailable [phone] Karie Jones RN Unavailable Unavailable Joy Bob Unavailable Fanta Addison Weinstein PharmD Unavailable Unavailab le Encounter Details Date Type Department Care Team (Late st Contact Info) Description 09/30/2019 Orders Only [facility] BMT CLINIC [address] [place] [address] Tiffanie Nguyen APRN-SOUND INSTALLATION WORKER [address] [place] [address] Diffuse large B-cell lymphoma, unspecified body region [...] st Contact Info) Description 08/26/2024 11:00 AM RUBBER CALENDER HELPER Office Visit [facility] - Pulmonology [address] [place] [address], [place] [phone] Andrew Francis MD [address] [place] [address] 2L DIV OF PULMONARY/[place] [address] documented as of this encounter Visit Diagnoses Diagnosis Diffuse large B-cell lymphoma, unspecified body region (HCC)- Primary documented in this encounter Care Teams Financial Management Analyst Relationship Specialty Start Date End Date Ran Nuñez MD [address] [place] [address] PCP - General Family Medicine 03/22/19 12/22/20 Hillary Apple MD [address] [place] [address] Hematology and Oncology 03/17/19 Bill Ferrera MD [address] [place] [address] Hematology and Oncology 03/17/19 08/27/21 Tony Dumont MD [address] [place] [address] Hematology and Oncology 03/17/19 Maryjo Reinoso, EXPLOSIVES HANDLER Ibm Websphere Commerce Consultant 03/17/19 Madyson Clay, PharmD 03/17/19 Dana Lala, GRAIN ORIGINATION SPECIALIST-POULTRY FARMER EGG [address] [facility] 2nd [place] [address] Oncology 03/17/19 Tiffanie Nguyen, GRAIN ORIGINATION SPECIALIST-SOUND INSTALLATION WORKER [address] [facility] 2nd [place] [address] Family Medicine 03/17/19 Stephanie Mahoney, RN Registered Nurse 03/17/19 10/29/21 Alycia Galvan, ROSEMARY 03/17/19 10/29/21 Cesar Tavares MD [address] [place] [address] [place] [address] Referring Physician Medical Oncology 03/23/19 Karie Jones, RN Registered Nurse 06/08/19 10/29/21 Joy Bob 09/22/19 Addison Shea, PharmD Pharmacist 09/22/19 10/29/21 documented as of this encounter
--- OUTSIDE RECORDS SUMMARY | 2024-08-18 00:31 | XMS_ITS | Encounter Summary ---
Author Organization [facility] Address [address] [facility] [place] [address] Care Team Providers Care Supervisor Commissary Production Name Role Phone Hillary Apple MD Unavailable [phone] Bill Ferrera MD Unavailable [phone] Tony Dumont MD Unavailable [phone] Maryjo Reinoso PATCHER HELPER Unavailable Unavailable Madyson Clay PharmD Unavailable Unavaila Dana Galicia NICKEL OPERATOR-LONGWALL FOREMAN Unavailable [phone] Tiffanie Nguyen APRN-CAPITAL MARKETS SPECIALIST Unavailable [phone] Stephanie Mahoney RN Unavailable Unavailable Alycia Galvan RN Unavailable UnavailRan Mejía MD Primary Care Provider Cesar Tavares MD Unavailable [phone] Karie Jones RN Unavailable Unavailable Joy Bob Unavailable Fanta Addison Weinstein PharmD Unavailable Unavailab le Reason for Visit * Oncology Prior Authorization (Routine) - Closed Specialty Diagnoses / Procedures Referred By Contjohn t Referred To Contact Diagnoses Diffuse large B-cell lymphoma, unspecified body region (HCC) Procedures GA ALTEPLASE RECOMBINANT Tiffanie Nguyen APRN-CAPITAL MARKETS SPECIALIST [address] [place] [address] [facility] B[facility] [address] [place] [address] Referral ID Status Reason Start Date Expiration Date Visits Re quested Visits Authorized [id number] Closed 05/24/2019 11/20/2019 1 1 Encounter Details Date Type Department Care Team (Latest Contact Info) Description 10/05/2019 12:56 PM DAIRY CATTLE FARM MANAGER - 10/05/2019 11:59 PM DAIRY CATTLE FARM MANAGER Hospital Encounter [facility] B[facility] CLINIC [address] [place] [address] Monica Latif, JOSE DAVID-ERIKA [address] [place] [address] Discharge Disposition: Home or Self [...] Sign Reading Time Taken Comments Blood Pressure 132/86 10/05/2019 1:15 PM DAIRY CATTLE FARM MANAGER Pulse 91 10/05/2019 1:15 PM DAIRY CATTLE FARM MANAGER Temperature 37.1 ??C (98.7 ??F) 10/05/2019 1:15 PM CS T Respiratory Rate 16 10/05/2019 1:15 PM DAIRY CATTLE FARM MANAGER Oxygen Saturation 97% 10/05/2019 1:15 PM DAIRY CATTLE FARM MANAGER Inhaled Oxygen Concentration - - Weight 118.8 kg (261 lb 14.4 oz) 10/05/2019 1:15 PM DAIRY CATTLE FARM MANAGER Height - - Body Mass Index 40.41 09/21/2019 7:41 AM DAIRY CATTLE FARM MANAGER documented in this encounter Functional Status Functional [...] st Contact Info) Description 08/26/2024 11:00 AM DAIRY CATTLE FARM MANAGER Office Visit [facility] - Pulmonology [address] [facility], [place] [address] Andrew Francis MD [address] [place] [address] 2L DIV OF PULMONARY/CR[place] [address] documented as of this encounter Visit Diagnoses Diagnosis Diffuse large B-cell lymphoma, unspecified body region (HCC)- Primary documented in this encounter Administered Medications Inactive Administered Medications - up to 3 most recent administrations Medication Order MAR Action Action Date Dose Rate Site heparin lock flush injection 500 Units 500 Units, Intracatheter, PRN, Other, Site maintenance, Starting on Fri10/05/19 at 1308, Until Fri10/06/19 at 0107 $ Given 10/05/2019 1:37 PM DAIRY CATTLE FARM MANAGER 500 Units $ Given 10/05/2019 1:36 PM DAIRY CATTLE FARM MANAGER 500 Units $ Given 10/05/2019 1:35 PM DAIRY CATTLE FARM MANAGER 500 Units documented in this encounter Care Teams Supervisor Commissary Production Relationship Specialty Start Date End Date Ran Nuñez MD [address] [facility] [place] [address] PCP - General Family Medicine 03/22/19 12/22/20 Hillary Apple MD [address] [place] [address] Hematology and Oncology 03/17/19 Bill Ferrera MD [address] [place] [address] Hematology and Oncology 03/17/19 08/27/21 Tony Dumont MD [address] [place] [address] Hematology and Oncology 03/17/19 Maryjo Reinoso LCSW Pipe Maker 03/17/19 Madyson Clay, PharmD 03/17/19 Dana Lala, NICKEL OPERATOR-LONGWALL FOREMAN [address] [facility] 2nd [place] [address] Oncology 03/17/19 Tiffanie Nguyen, NICKEL OPERATOR-CAPITAL MARKETS SPECIALIST [address] [place] [address] Family Medicine 03/17/19 Stephanie Mahoney, RN Registered Nurse 03/17/19 10/29/21 Alycia Galvan, ROSEMARY 03/17/19 10/29/21 Cesar Tavares MD [address] [place] [address] Referring Physician Medical Oncology 03/23/19 Karie Jones, RN Registered Nurse 06/08/19 10/29/21 Joy Bob 09/22/19 Addison Shea, PharmD Pharmacist 09/22/19 10/29/21 documented as of this encounter
--- OUTSIDE RECORDS SUMMARY | 2024-08-18 00:31 | XMS_ITS | Encounter Summary ---
Author Organization [facility] Address [address] [place] [address] Care Team Providers Care Medical Reimbursement Manager Name Role Phone Hillary Apple MD Unavailable [phone] Bill Ferrera MD Unavailable [phone] Tony Dumont MD Unavailable [phone] Maryjo ReinosoW Unavailable Unavailable Madyson Clay PharmD Unavailable Unavaila Dana Galicia RAILROAD ENGINEER-SHORE WORKING SUPERVISOR Unavailable [phone] Tiffanie Nguyen APRN-BOX COVERING MACHINE OPERATOR Unavailable [phone] Stephanie Mahoney RN Unavailable Unavailable Alycia Galvan RN Unavailable UnavailRan Mejía MD Primary Care Provider Cesar Tavares MD Unavailable [phone] Karie Jones RN Unavailable Unavailable Joy Bob Unavailable Fanta Addison Weinstein PharmD Unavailable Unavailab le Encounter Details Date Type Department Care Team (Late st Contact Info) Description 10/04/2019 Telephone [facility] BMT CLINIC [address] [place] [address] Tiffanie Nguyen APRN-BOX COVERING MACHINE OPERATOR [address] [place] [address] Social History Tobacco Use Types [...] No 08/19/2019 documented as of this encounter Miscellaneous Notes * Telephone Encounter - Tiffanie Nguyen APRN-CNP - 10/04/2019 3:42 PM ART DIRECTOR Called Aurelio to facilitate dressing change for tomorrow, 10/05/19. He will come to clinic at 1300 for dressing change. He continued to be very frustrated and short on the phone, asking for CVC to be removed as he was done with this shit and wants to go back to work . After discussion, Aurelio was agreeable to come for dressing change and offered discussion, but he reports there is nothing to talk about and will only come for a dressing change if it's something he has to do. Will continue to follow. MISSY Ball[facility] DIRECTOR documented in this encounter Plan of Treatment Upcoming Encounters Date Type Department Care Team (Late st Contact Info) Description 08/26/2024 11:00 AM ART DIRECTOR Office Visit [facility] - Pulmonology [address] [place] [address], [place] [address] Andrew Francis MD [address] 2L DIV OF PULMONARY/[place] [address] documented as of this encounter Visit Diagnoses Not on filedocumented in this encounter Care Teams Medical Reimbursement Manager Relationship Specialty Start Date End Date Ran Nuñez MD [address] [place] [address] PCP - General Family Medicine 03/22/19 12/22/20 Hillary Apple MD [address] [place] [address] Hematology and Oncology 03/17/19 Bill Ferrera MD [address] [place] [address] Hematology and Oncology 03/17/19 08/27/21 Tony Dumont MD [address] [place] [address] Hematology and Oncology 03/17/19 Maryjo Reinoso, MIXER DIAMOND POWDER Absorption Operator 03/17/19 Madyson Clay, PharmD 03/17/19 Dana Lala, RAILROAD ENGINEER-SHORE WORKING SUPERVISOR [facility] 2nd [place] [address] Oncology 03/17/19 Tiffanie Nguyen, RAILROAD ENGINEER-BOX COVERING MACHINE OPERATOR [address] [place], [place] [address] 2nd [place] [address] Family Medicine 03/17/19 Stephanie Mahoney, RN Registered Nurse 03/17/19 10/29/21 Alycia Galvan, ROSEMARY 03/17/19 10/29/21 Cesar Tavares MD [address] [place] [address] Referring Physician Medical Oncology 03/23/19 Karie Jones, RN Registered Nurse 06/08/19 10/29/21 Joy Bob 09/22/19 Addison Shea, PharmD Pharmacist 09/22/19 10/29/21 documented as of this encounter
--- OUTSIDE RECORDS SUMMARY | 2024-08-18 00:31 | XMS_ITS | Encounter Summary ---
Author Organization [facility] Address [address] [place] [address] Care Team Providers Care Program Analyst Name Role Phone Hillary Apple MD Unavailable [phone] Bill Ferrera MD Unavailable [phone] Tony Dumont MD Unavailable [phone] Shalini Segal MD Unavailable [phone] Maryjo Reinoso LCSW Unavailable Unavailable Madyson Clay PharmD Unavailable Unavaila Dana Galicia MOBILE DEVELOPMENT MANAGER-FITNESS PROFESSIONAL Unavailable [phone] Tiffanie Nguyen MOBILE DEVELOPMENT MANAGER-AGRICULTURAL RESEARCH DIRECTOR Unavailable [phone] Stephanie Mahoney RN Unavailable Unavailable Alycia Galvan RN Unavailable UnavailRan Mejía MD Primary Care Provider Cesar Tavares MD Unavailable [phone] Karie Jones RN Unavailable Unavailable Joy Bob Unavailable Fanta Addison Weinstein PharmD Unavailable Unavailab le Reason for Visit * Radiology Services (Routine) - Closed Specialty Diagnoses / Procedures Referred By Deng t Referred To Contact Diagnoses Neck pain on right side Procedures VAS RIGHT VENOUS DUPLEX UE VAS CAROTID DUPLEX LTD Tiffanie Nguyen APRN-AGRICULTURAL RESEARCH DIRECTOR [address] [place] [address] Referral ID Status Reason Start Date Expiration Date Visits Re quested Visits Authorized [id number] Closed 09/27/2019 03/25/2020 1 1 Encounter Details Date Type Department Care Team (Latest Contact Info) Description 09/27/2019 10:10 AM ECONOMIC MANAGER - 09/27/2019 11:59 PM ECONOMIC MANAGER Hospital Encounter [facility] [address] [place] [address] Tiffanie Nguyen, MOBILE DEVELOPMENT MANAGER-AGRICULTURAL RESEARCH DIRECTOR [address] [place] [address] Discharge Disposition: Home or Self Care Social [...] st Contact Info) Description 08/26/2024 11:00 AM ECONOMIC MANAGER Office Visit [facility] - Pulmonology [address] [place] [address], [place] [address] Andrew Francis MD [address] [place] [address] DIV OF PULMONARY/[place] [address] documented as of this encounter Procedures Procedure Name Priority Date/Time Associated Diagnosis Comments VASCULAR LAB ORDER 09/28/2019 12 :07 PM ECONOMIC MANAGER VAS RIGHT VENOUS DUPLEX UE Routine 09/27/2019 10:57 AM ECONOMIC MANAGER Neck pain on right side documented in this encounter Results * VASCULAR LAB ORDER (09/28/2019 12:07 PM ECONOMIC MANAGER) Anatomical Region Laterality Modality Intravascular Ul trasound Narrative 09/28/2019 12:07 PM ECONOMIC MANAGER Ordered by an unspecified provider. Scanned Document VASCULAR LAB ORDERAB LES * VAS RIGHT VENOUS DUPLEX UE (09/27/2019 10:57 AM ECONOMIC MANAGER) Anatomical Region Laterality Modality Upper Extremity Intravascular Ul trasound 09/27/2019 10:2 5 AM ECONOMIC MANAGER Narrative Procedure Note Alonso Carreon MD - 10/01/2019 Tiffanie Nguyen MOBILE DEVELOPMENT MANAGER-AGRICULTURAL RESEARCH DIRECTOR VASCULAR LAB OR DERABLES documented in this encounter Visit Diagnoses Diagnosis Neck pain on right side Cervicalgia documented in this encounter Care Teams Program Analyst Relationship Specialty Start Date End Date Ran Nuñez MD [address] [place] [address] PCP - General Family Medicine 03/22/19 12/22/20 Hillary Apple MD [address] [place] [address] Hematology and Oncology 03/17/19 Bill Ferrera MD [address] [place] [address] Hematology and Oncology 03/17/19 08/27/21 Tony Dumont MD [address] [place] [address] Hematology and Oncology 03/17/19 Shalini Segal MD [address] [place] [address] Hematology and Oncology 03/17/19 09/29/19 Maryjo Reinoso, COMMUNICATIONS MAINTAINER Supervisor Hot Dip Tinning 03/17/19 Madyson Clay, PharmD 03/17/19 Dana Lala, MOBILE DEVELOPMENT MANAGER-FITNESS PROFESSIONAL [address] [facility] 2nd [place] [address] Oncology 03/17/19 Tiffanie Nguyen, MOBILE DEVELOPMENT MANAGER-AGRICULTURAL RESEARCH DIRECTOR [address] [place] [address] Family Medicine 03/17/19 Stephanie Mahoney, RN Registered Nurse 03/17/19 10/29/21 Alycia Galvan, ROSEMARY 03/17/19 10/29/21 Cesar Tavares MD [address] [facility] [place] [address] Referring Physician Medical Oncology 03/23/19 Karie Jones, RN Registered Nurse 06/08/19 10/29/21 Joy Bob 09/22/19 Addison Shea, PharmD Pharmacist 09/22/19 10/29/21 documented as of this encounter
--- OUTSIDE RECORDS SUMMARY | 2024-08-18 00:31 | XMS_ITS | Encounter Summary ---
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 order: Regular Nutrition recommendation: agree with current nutrition order P.O.Intake for the past 48 hrs:% Meal Taken Av % Min: 100 % Max: 100 % Food Allergies: No known food allergies GI Concerns: None Chewing/Swallowing: None Pain affecting intake: No Admission weight: Weight: 272 lb 1.6 oz (123.4 kg) (10/13/19 1513) Filed Wts: 10/26/19 1533 10/27/19 0457 10/27/19 1554 10/28/19 0426 Weight: 263 lb 3.2 oz (119.4 kg) 261 lb 12.8 oz (118.8 kg) 264 lb (119.7 kg) 263 lb 3.2 oz (119.4 kg) Wt Comments: Wt Readings from Last 3 Encounters: 10/28/19 263 lb 3.2 oz (119.4 kg) 10/13/19 266 lb (120.7 kg) 10/05/19 261 lb 14.4 oz (118.8 kg) Height: 5' 7.5 (171.5 cm) IBW/lb (Calculated) Male: 89 , Laboratory values reviewed. low total protein, likely d/t CA. Medications noted. loperamide (IMODIUM) solution 2 mg ?? polyethylene glycol 3350 (MIRALAX) packet 17 g ?? pantoprazole EC (PROTONIX) tablet 40 mg ?? Skin/Wound: WNL Estimated Energy Needs: KCAL: 4646-6857(30-35 kcal/kg IBW) Protein (g): 95-109(1.4-1.6 g/kg IBW) Fluid (ml): 1 ml/kcal Needs based on: Kcal/kg- (Comment) Recommended Access Route: PO Education needed: None Nutrition Care Process (1) Nutrition Diagnostic Statement: Increased nutrient needs related to:: cancer as evidenced by:: estimated energy needs ..;estimated protein needs .. Nutrition Diagnostic Statement Progress: Nutrition problem continues Nutrition Intervention: Meals and snacks: Monitoring: GI, PO intake, weight, labs, medications. Evaluation: Nutrition Goal: Total intake will meet estimated nutrient needs Nutrition Goal Timeframe: Throughout stay Nutrition Goal Progress: Goal met Yi Castillo RD/DAE * Katia Roque APRN-CLEAR COAT SPRAYER - 10/28/2019 7:01 AM CDT Autologous Hematopoietic Stem Cell Daily Note: PATIENT IDENTIFIERS: JALIL LUIS is a 49 year old male who is Day +8 (Day 0 is 10/20/19) of an autologous peripheralblood stem cell transplant with a 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 INTERVAL HISTORY: - Up and moving in room - Complaining of significant back pain overnight in lower back - increased pain meds seemed to helpsome but have no completely alleviated the pain - Patient had significant pain with Granix in the past - ANC increased to 20 today - Denies F/C/N/V/D - Continues to have some fatigue - Eating and drinking well - Denies URI symptoms - Stable bowel and bladder - Staying active and walking in the hallway ROS: A comprehensive review of systems was negative except for: as noted above MEDICATIONS FOR CURRENT ENCOUNTER: SCHEDULED MEDICATIONS: 0.9% NaCl injection 10 mL, Intracatheter, q8h bacitracin topical ointment, Topical, TID cefepime (MAXIPIME) 2,000 mg in 0.9% NaCl 50 mL IVPB, Intravenous, q8h escitalopram (LEXAPRO) tablet 10 mg, Oral, QDAY heparin lock flush injection 500 Units, Intravenous, BID loratadine (CLARITIN) tablet 10 mg, Oral, QDAY micafungin (MYCAMINE) 50 mg in 0.9% NaCl IVPB, Intravenous, q24h pantoprazole EC (PROTONIX) tablet 40 mg, Oral, QDAY rOPINIRole (REQUIP) tablet 0.25 mg, Oral, AT BEDTIME tbo-filgrastim (GRANIX) prefilled syringe 480 mcg, Subcutaneous, Once valACYclovir (VALTREX) tablet 500 mg, Oral, BID ?? [COMPLETED] tbo-filgrastim (GRANIX) prefilled syringe 480 mcg, Subcutaneous, Once ?? CONTINUOUS MEDICATIONS: PRN MEDICATIONS: 0.9% NaCl injection 10 mL, Intracatheter, PRN albuterol HFA (PROVENTIL;VENTOLIN;PROAIR) 108 (90 Base) MCG/ACT inhaler 2 puff, Inhalation, q4h PRN docusate sodium (COLACE) capsule 100 mg, Oral, BID PRN loperamide (IMODIUM) solution 2 mg, Oral, q3h PRN LORazepam (ATIVAN) tablet 0.5 mg, Oral, q8h PRN magnesium sulfate 2 g in 50 mL bolus, Intravenous, PRN methyl salicylate-menthol (ABIMAEL SILVA) ointment, Topical, 4X/day PRN morphine injection 2 mg, Intravenous, q4h PRN ondansetron (disintegrating) (ZOFRAN ODT) tablet 4 mg, Sublingual, q6h PRN ondansetron (ZOFRAN) injection 4 mg, Intravenous, q6h PRN oxyCODONE (immediate release) (ROXICODONE) tablet 10 mg, Oral, q4h PRN polyethylene glycol 3350 (MIRALAX) packet 17 g, Oral, QDAY PRN potassium chloride 40 mEq in 0.9% NaCl 270 mL bolus, Intravenous, PRN prochlorperazine (COMPAZINE) tablet 5 mg, Oral, q4h PRN prochlorperazine (COMPAZINE) tablet 5 mg, Oral, q8h PRN ?? saline nasal spray (OCEAN; BABY AYR) 0.65 % nasal spray 1 spray, Each Nostril, q30 min PRN VITALS: Vitals: 10/27/19 1554 10/27/19 1958 10/28/19 0045 10/28/19 0426 BP: 116/74 98/59 110/53 Pulse: (!) 112 106 103 Resp: Temp: 99 ??F 98.6 ??F 98.9 ??F SpO2: 98% 98% 98% Weight: 119.7 kg (264 lb) 119.4 kg (263 lb 3.2 oz) Height: Wt Readings from Last 3 Encounters: 10/28/19 119.4 kg (263 lb 3.2 oz) 10/13/19 120.7 kg (266 lb) 10/05/19 118.8 kg (261 lb 14.4 oz) Date 10/27/19 07 - 10/28/19 0659 10/28/19 07 - 10/29/19 0659 Shift 5941-4884 6468-5311 24 Hour Total 1558-9407 3642-2700 24 Hour Total INTAKE P.O. 2360 341 2635 I.V.(mL/kg/hr) 171(0.1) 50.1(0) 221.2(0.1) Shift Total(mL/kg) 2531(21.1) 325.1(2.7) 2856.2(23.9) OUTPUT Urine(mL/kg/hr) 850(0.6) 850(0.6) 1700(0.6) Shift Total(mL/kg) 850(7.1) 850(7.1) 1700(14.2) NET 1681 -524.9 1156.2 Weight (kg) 119.7 119.4 119.4 119.4 119.4 119.4 PHYSICAL EXAM: General appearance - alert, visibly in pain, no other acute issues Mouth - mucous membranes moist, pharynx normal without lesions Chest - clear to auscultation, no wheezes, rales or rhonchi, symmetric air entry Heart - normal rate, regular rhythm, normal S1, S2, no murmurs, rubs, clicks or gallops Abdomen - soft, nontender, nondistended, bowel sounds normal Extremities - peripheral pulses normal, no pedal edema, no clubbing or cyanosis Musculoskeletal - back pain - tender to palpation, no obvious deformities Skin - normal coloration and turgor, no rashes, no suspicious skin lesions noted CVC - dressing dry and intact without redness, swelling or stated tenderness LABS: Recent Labs Component Name 10/28/19 0000 10/27/19 0603 10/27/19 0007 10/26/19 0012 10/24/19 0015 10/23/19 0030 10/19/19 0021 10/17/19 2343 10/17/19 0020 WBC 0.5* - 0.2* 0.3* - 0.3* 0.6* - 5.5 6.4 9.2 RBC 3.42* - 3.50* 3.49* - 3.57* 3.47* - 3.63* 3.52* 3.38* HGB 9.8* - 10.1* 10.0* - 10.3* 10.1* - 10.4* 10.2* 9.7* HCT 28.4* - 29.1* 29.4* - 30.4* 29.7* - 31.3* 30.9* 29.9* MCV 83.0 - 83.1 84.2 - 85.2 85.6 - 86.2 87.8 88.5 MCH 28.7 - 28.9 28.7 - 28.9 29.1 - 28.7 29.0 28.7 MCHC 34.5 - 34.7 34.0 - 33.9 34.0 - 33.2 33.0 32.4 PLTCOUNT 33* 60* 3* 10* - 75* 118* - 295 321 312 RDWSD 47.0 - 46.8 46.8 - 49.1 49.7 - 49.9 50.8* 51.3* RDW 15.3* - 15.4* 15.4* - 15.5* 16.0* - 15.7* 15.9* 15.9* MPV 8.9* - - - - 11.7 11.6 - 10.3 10.9 10.2 NRBCABS 0.03* - 0.00 0.00 - 0.00 0.00 - 0.00 0.00 0.00 NRBCAUTOPCT 6.5* - 0.0 0.0 - 0.0 0.0 - 0.0 0.0 0.0 NEUTPCT - - - - - - - - 96.5* 93.4* 90.0* LYMPHSPCT - - - - - - - - 2.4* 3.9* 3.9* MONOPCT - - - - - - - - 0.4* 2.2* 5.3 EOSPCT 1 - 2 5 - 12* 27* - 0.0 0.0 0.0 BASOPCT - - - - - - - - 0.0 0.0 0.0 IMMGRANSPCT - - - - - - - - 0.7 0.5 0.8 NEUTABS 0.02* - 0.01* 0.00* - 0.01* 0.31* - 5.3 6.0 8.3* LYMPHS 0.33* - 0.18* 0.27* - 0.25* 0.13* - 0.1* 0.3* 0.4* MONO 0.16 - 0.01* 0.02* - - - - 0.02* 0.14 0.49 EOS 0.01 - 0.00 0.02 - 0.04 0.16 - 0.00 0.00 0.00 BASO - - - - - - - - 0.00 0.00 0.00 TOTCELLCNT 100 - 100 100 - 100 100 - - - - - = values in this interval not displayed. Recent Labs Component Name 10/28/19 0000 10/27/19 0007 10/26/19 0012 BUN 11 13 12 CREATININE 0.9 0.9 0.9 NA 137 138 135* POTASSIUM 4.0 4.1 4.2 CL 103 106 104 CO2 25 24 23 CALCIUM 8.9 9.0 8.7 PROT 5.9* 5.8* 5.5* ALB 2.8* 2.8* 2.8* TBILI 0.1* 0.1* 0.2 ALKPHOS 95 84 69 ALT 54 53 46 AST 18 17 12 ANIONGAP 13 12 12 BCR 12 14 13 OSMOLALITY 284 287 280 AGRATIO 0.9* 0.9* 1.0* EGFR >60 >60 >60 Recent Labs Component Name 10/28/19 0000 10/27/19 0007 10/26/19 0012 MAGNESIUM 1.9 1.9 1.9 Recent Labs Component Name 10/28/19 0000 10/27/19 0007 10/26/19 0012 PHOS 3.2 3.6 3.5 Routine Monitoring: CMV (weekly starting day 0): 10/20/19 - ND, 10/25/19 - pending RADIOGRAPHY: INFECTIOUS: BCx (10/25/19): NGTD UCx (10/25/19): <10,000 CFU/mL urogenital josseline ASSESSMENT/PLAN: JALIL LUIS is a 49 year old male, who is Day +8 (Day 0 is 10/20/19) of an autologous [...] meds: none needed Transfusion threshold: Hgb > 7 (changing parameters against our policy to try to preserve blood transfusions during the current pandemic COVID19), Plt > 10 Engraftment: pending, started granix on day +5 (10/25/19) OI prophylaxis: Bacterial:??see below Fungal:??Micafungin 50mg QD, changed on 10/18 d/t elevated LFTs PJP:??Bactrim DS MWF resume upon engraftment Viral: Valtrex 500 mg BID Tachycardia & Low Grade Fever - stable tachycardia beginning evening of 10/23; somewhat improved today (10/26) - given neutropenic and asplenic escalated abx - Continue Cefepime 10/24 - CXR negative Cultures negative at this point Back pain - r/t engraftment?? - Morphine 4mg Q4h PRN - Oxycodone 10mg Q4h PRN - Bengay ointment topical - Heat packs PRN Wheezing - resolved - PRN Albuterol neb added 10/23 - CXR (10/24/19) negative Pertinent PMH: Anxiety/Depression-Lexapro 10 mg daily Arthritis-on diclofenac BID at home, will stop with admission and use oxycodone PRN 08/17/19-S/P Splenectomy-laparoscopic splenectomy >IVIG given 08/18/19 after splenectomy Restless Leg Syndrome--flares when off diclofenac. Currently on Requip Right IJ venous clot 09/27/19-switched to lovenox 1mg/kg BID. Stopped 10/24/19. Can resume when PLT recovers Discharge Planning: Patients preferred contact information: cell Caregiver: sister, girlfriend Preferred D/C Pharmacy: [id number] Intended lodging: home Referring provider: Cesar Tavares Disposition: Remain on 8N pending count recovery MISSY Nava- [facility] I independently interviewed and examined Jalil Luis with the BMT advanced practice provider. I reviewed my findings and assessment with the advanced practice provider and the patient. I reviewed the below note. Please see note for full detail. Day 8 Tachy recur Tm 100 ?engraftment Worsening pain may be related to engraftment On cefe empirically since 10/26 for tachy and fatigue Remember asplenic On Granix Elda for early rise in LFTs Resume AC when plt rise Hillary Apple MD MSc geospatial extractor analysis Interim Director, Division of Hematology/Oncology [facility] * Tenisha Cyr, PT - 10/27/2019 12:56 PM CDT [facility] Department of Physical Medicine & Rehabilitation Progress Note Patient: Jalil Luis Med Record Number: [id number] Date of : 1970 Age: [age] year old Reviewed chart, discussed patient status with animal rehabilitator who reports pt has been compliant and independent with Oncology HEP and walking program. Will d/c pt from skilled PT and restorative therapy at this time. Patient to continue to complete exercise/mobility with RN supervision to maintain functional mobility status while in hospital. Tenisha Cyr PT 10/27/2019 1:04 PM ?? * Hillary Apple MD - 10/27/2019 7:21 AM CDT Autologous Hematopoietic Stem Cell Daily Note: PATIENT IDENTIFIERS: JALIL LUIS is a 49 year old male who is Day +7 (Day 0 is 10/20/19) of an autologous peripheralblood stem cell transplant with a 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 INTERVAL HISTORY: Continues to have temp in low 99 range, tachycardia mildly improved Continues to feel fatigued, but otherwise without complaint Slight rise in ANC today from 0 to 10 Received platelets overnight with good increment Eating and drinking well, nearly 3L in PO since yesterday and net + by 1.1L Weight overall stable, down 0.6kg Denies SOB or difficulty breathing Reports stable bowel and bladder Staying active and walking daily ROS: A comprehensive review of systems was negative except for: as noted above MEDICATIONS FOR CURRENT ENCOUNTER: SCHEDULED MEDICATIONS: 0.9% NaCl injection 10 mL, Intracatheter, q8h bacitracin topical ointment, Topical, TID cefepime (MAXIPIME) 2,000 mg in 0.9% NaCl 50 mL IVPB, Intravenous, q8h escitalopram (LEXAPRO) tablet 10 mg, Oral, QDAY heparin lock flush injection 500 Units, Intravenous, BID loratadine (CLARITIN) tablet 10 mg, Oral, QDAY micafungin (MYCAMINE) 50 mg in 0.9% NaCl IVPB, Intravenous, q24h pantoprazole EC (PROTONIX) tablet 40 mg, Oral, QDAY rOPINIRole (REQUIP) tablet 0.25 mg, Oral, AT BEDTIME tbo-filgrastim (GRANIX) prefilled syringe 480 mcg, Subcutaneous, Once valACYclovir (VALTREX) tablet 500 mg, Oral, BID ?? [COMPLETED] tbo-filgrastim (GRANIX) prefilled syringe 480 mcg, Subcutaneous, Once ?? CONTINUOUS MEDICATIONS: PRN MEDICATIONS: 0.9% NaCl injection 10 mL, Intracatheter, PRN albuterol HFA (PROVENTIL;VENTOLIN;PROAIR) 108 (90 Base) MCG/ACT inhaler 2 puff, Inhalation, q4h PRN docusate sodium (COLACE) capsule 100 mg, Oral, BID PRN loperamide (IMODIUM) solution 2 mg, Oral, q3h PRN LORazepam (ATIVAN) tablet 0.5 mg, Oral, q8h PRN magnesium sulfate 2 g in 50 mL bolus, Intravenous, PRN ondansetron (disintegrating) (ZOFRAN ODT) tablet 4 mg, Sublingual, q6h PRN ondansetron (ZOFRAN) injection 4 mg, Intravenous, q6h PRN oxyCODONE (immediate release) (ROXICODONE) tablet 5 mg, Oral, q4h PRN polyethylene glycol 3350 (MIRALAX) packet 17 g, Oral, QDAY PRN potassium chloride 40 mEq in 0.9% NaCl 270 mL bolus, Intravenous, PRN prochlorperazine (COMPAZINE) tablet 5 mg, Oral, q4h PRN prochlorperazine (COMPAZINE) tablet 5 mg, Oral, q8h PRN ?? saline nasal spray (OCEAN; BABY AYR) 0.65 % nasal spray 1 spray, Each Nostril, q30 min PRN VITALS: Vitals: 10/27/19 0457 10/27/19 0525 10/27/19 0535 10/27/19 0606 BP: 109/61 140/89 129/79 Pulse: 106 109 105 Resp: 18 20 20 Temp: 99.8 ??F 99.1 ??F 99.4 ??F SpO2: 99% 99% 99% Weight: 118.8 kg (261 lb 12.8 oz) Height: Wt Readings from Last 3 Encounters: 10/27/19 118.8 kg (261 lb 12.8 oz) 10/13/19 120.7 kg (266 lb) 10/05/19 118.8 kg (261 lb 14.4 oz) Date 10/26/19 07 - 10/27/19 0659 10/27/19 07 - 10/28/19 0659 Shift [id number] 24 Hour Total 8479-6504 4883-4841 24 Hour Total INTAKE P.O. 2484 500 2984 I.V.(mL/kg/hr) 404(0.3) 50.1(0) 454.1(0.2) Blood Products 212 212 Shift Total(mL/kg) 2888(24.2) 762.1(6.4) 3650.1(30.7) OUTPUT Urine(mL/kg/hr) 1450(1) 1100(0.8) 2550(0.9) Shift Total(mL/kg) 1450(12.1) 1100(9.3) 2550(21.5) NET 1438 -337.9 1100.1 Weight (kg) 119.4 118.8 118.8 118.8 118.8 118.8 PHYSICAL EXAM: General appearance - alert, well appearing, and in no distress and acyanotic, in no respiratory distress Mental status - alert, oriented to person, place, and time, normal mood, behavior, speech, dress, motor activity, and thought processes, affect appropriate to mood Mouth - mucous membranes moist, pharynx normal without lesions Chest - clear to auscultation, no wheezes, rales or rhonchi, symmetric air entry, no tachypnea, retractions or cyanosis Heart - mildly tachy rate and regular rhythm, no murmurs noted [...] no rashes, no suspicious skin lesions noted, ecchymosis to abdomen CVC - tunneled CVC w/ dressing dry, occlusive, & intact; site without erythema, drainage, or tenderness LABS: Recent Labs Component Name 10/27/19 0603 10/27/19 0007 10/26/19 0012 10/25/19 0013 10/24/19 0015 10/23/19 0030 10/22/19 0015 10/19/19 0021 10/17/19 2343 10/17/19 0020 WBC - 0.2* 0.3* 0.3* 0.3* 0.6* 2.4* - 5.5 6.4 9.2 RBC - 3.50* 3.49* 3.77* 3.57* 3.47* 3.60* - 3.63* 3.52* 3.38* HGB - 10.1* 10.0* 10.7* 10.3* 10.1* 10.4* - 10.4* 10.2* 9.7* HCT - 29.1* 29.4* 31.6* 30.4* 29.7* 30.8* - 31.3* 30.9* 29.9* MCV - 83.1 84.2 83.8 85.2 85.6 85.6 - 86.2 87.8 88.5 MCH - 28.9 28.7 28.4 28.9 29.1 28.9 - 28.7 29.0 28.7 MCHC - 34.7 34.0 33.9 33.9 34.0 33.8 - 33.2 33.0 32.4 PLTCOUNT 60* 3* 10* 32* 75* 118* 169 - 295 321 312 RDWSD - 46.8 46.8 48.9 49.1 49.7 49.4 - 49.9 50.8* 51.3* RDW - 15.4* 15.4* 15.9* 15.5* 16.0* 15.9* - 15.7* 15.9* 15.9* MPV - - - - 11.7 11.6 10.7 - 10.3 10.9 10.2 NRBCABS - 0.00 0.00 0.00 0.00 0.00 0.00 - 0.00 0.00 0.00 NRBCAUTOPCT - 0.0 0.0 0.0 0.0 0.0 0.0 - 0.0 0.0 0.0 NEUTPCT - - - - - - - - 96.5* 93.4* 90.0* LYMPHSPCT - - - - - - - - 2.4* 3.9* 3.9* MONOPCT - - - - - - - - 0.4* 2.2* 5.3 EOSPCT - 2 5 6 12* 27* 4 - 0.0 0.0 0.0 BASOPCT - - - - - - - - 0.0 0.0 0.0 IMMGRANSPCT - - - - - - - - 0.7 0.5 0.8 NEUTABS - 0.01* 0.00* 0.00* 0.01* 0.31* 2.09 - 5.3 6.0 8.3* LYMPHS - 0.18* 0.27* 0.27* 0.25* 0.13* 0.22* - 0.1* 0.3* 0.4* MONO - 0.01* 0.02* 0.01* - - - - 0.02* 0.14 0.49 EOS - 0.00 0.02 0.02 0.04 0.16 0.10 - 0.00 0.00 0.00 BASO - - - - - - - - 0.00 0.00 0.00 TOTCELLCNT - 100 100 100 100 100 100 - - - - - = values in this interval not displayed. Recent Labs Component Name 10/27/19 0007 10/26/19 0012 10/25/19 0013 BUN 13 12 13 CREATININE 0.9 0.9 0.9 NA 138 135* 138 POTASSIUM 4.1 4.2 4.4 CL 106 104 105 CO2 24 23 24 CALCIUM 9.0 8.7 8.9 PROT 5.8* 5.5* 5.7* ALB 2.8* 2.8* 3.0* TBILI 0.1* 0.2 0.3 ALKPHOS 84 69 72 ALT 53 46 56* AST 17 12 12 ANIONGAP 12 12 13 BCR 14 13 14 OSMOLALITY 287 280 287 AGRATIO 0.9* 1.0* 1.1 EGFR >60 >60 >60 Recent Labs Component Name 03/25/20 0007 10/26/19 0012 10/25/19 0013 MAGNESIUM 1.9 1.9 2.0 Recent Labs Component Name 10/27/19 0007 10/26/19 0012 10/25/19 0013 PHOS 3.6 3.5 3.8 Routine Monitoring: CMV (weekly starting day 0): 10/20/19 - ND RADIOGRAPHY: INFECTIOUS: BCx (10/25/19): NG@24 UCx (10/25/19): <10,000 CFU/mL urogenital josseline ASSESSMENT/PLAN: JALIL LUIS is a 49 year old male, who is Day +7 (Day 0 is 10/20/19) of an autologous [...] meds: none needed Transfusion threshold: Hgb > 7 (changing parameters against our policy to try to preserve blood transfusions during the current pandemic COVID19), Plt > 10 >>transfuse 1u platelets for level of 3>>60 today (10/26) Engraftment: pending, started granix on day +5 (10/25/19) OI prophylaxis: Bacterial:??see below Fungal:??Micafungin 50mg QD, changed on 10/18 d/t elevated LFTs PJP:??Bactrim DS MWF resume upon engraftment Viral: Valtrex 500 mg BID Tachycardia & Low Grade Fever -stable tachycardia beginning evening of 10/23; somewhat improved today (10/26) -given neutropenic and asplenic escalated abx -stop Levaquin and start Cefepime 10/24 -CXr negative Cultures negative at this point Diarrhea -resolved -denies issues today (10/26) -C diff negative (10/23/19) -Imodium PRN Wheezing -no symptoms again today (10/26) -PRN Albuterol neb added 10/23 -CXR (10/24/19) negative Pertinent PMH: Anxiety/Depression-lexapro 10 mg daily Arthritis-on diclofenac BID at home, will stop with admission and use oxycodone PRN 08/17/19-S/P Splenectomy-laparoscopic splenectomy >IVIG given 08/18/19 after splenectomy Restless Leg Syndrome--flares when off diclofenac. Currently on Requip Right IJ venous clot 09/27/19-switched to lovenox 1mg/kg BID. Stopped 10/24/19. Can resume when PLT recovers Discharge Planning: Patients preferred contact information: cell Caregiver: sister, girlfriend Preferred D/C Pharmacy: [facility] Intended lodging: home Referring provider: Cesar Tavares Disposition: Remain on 8N pending count recovery Asim Ramirez APRN, ENVIRONMENTAL ECONOMIST-C [facility] Blood Marrow and Transplant Pager: [phone] I independently interviewed and examined Jalil Luis with the BMT advanced practice provider. I reviewed my findings and assessment with the advanced practice provider and the patient. I reviewed the below note. Please see note for full detail. Day 7 Tachy resolved Tm 99.0s BP stable On cefe empirically since 10/26 for tachy and fatigue Remember asplenic On Granix Elda for early rise in LFTs Resume AC when plt rise Hillary Apple MD MSc geospatial extractor analysis Interim Director, Division of Hematology/Oncology [facility] * Merle Jarvis - 10/26/2019 10:10 AM CDT [facility] Department of Physical Medicine & Rehabilitation Progress Note Patient: Jalil Luis Med Record Number: [id number] Date of : 1970 Age: [age] year old performed level 1&2 exercises x 15,20 reps. He walked for 10 minutes in the halls. Merle Jarvis Restorative Tech. * Asim Ramirez APRN-CLEAR COAT SPRAYER - 10/26/2019 7:59 AM CDT Autologous Hematopoietic Stem Cell Daily Note: PATIENT IDENTIFIERS: JALIL LUIS is a 49 year old male who is Day +6 (Day 0 is 10/20/19) of an autologous peripheralblood stem cell transplant with a 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 INTERVAL HISTORY: Doing well this morning Some back pain last night, started Claritin and used PRN oxy x1 which helped Continues to have stable low grade tachycardia Cultures from yesterday remain pending, U/A and CXr unremarkable for infectious process Denies N/V/F/C/D Reports stable bowel and bladder Eating and drinking well, ~2.8L in since yesterday and net + 1.6L Weight stable Denies SOB or difficulty breathing Has not needed PRN Albuterol Staying active up and walking daily ROS: A comprehensive review of systems was negative except for: as noted above MEDICATIONS FOR CURRENT ENCOUNTER: SCHEDULED MEDICATIONS: 0.9% NaCl injection 10 mL, Intracatheter, q8h bacitracin topical ointment, Topical, TID cefepime (MAXIPIME) 2,000 mg in 0.9% NaCl 50 mL IVPB, Intravenous, q8h escitalopram (LEXAPRO) tablet 10 mg, Oral, QDAY heparin lock flush injection 500 Units, Intravenous, BID loratadine (CLARITIN) tablet 10 mg, Oral, QDAY micafungin (MYCAMINE) 50 mg in 0.9% NaCl IVPB, Intravenous, q24h pantoprazole EC (PROTONIX) tablet 40 mg, Oral, QDAY rOPINIRole (REQUIP) tablet 0.25 mg, Oral, AT BEDTIME tbo-filgrastim (GRANIX) prefilled syringe 480 mcg, Subcutaneous, Once valACYclovir (VALTREX) tablet 500 mg, Oral, BID ?? [COMPLETED] tbo-filgrastim (GRANIX) prefilled syringe 480 mcg, Subcutaneous, Once ?? CONTINUOUS MEDICATIONS: PRN MEDICATIONS: 0.9% NaCl injection 10 mL, Intracatheter, PRN albuterol HFA (PROVENTIL;VENTOLIN;PROAIR) 108 (90 Base) MCG/ACT inhaler 2 puff, Inhalation, q4h PRN docusate sodium (COLACE) capsule 100 mg, Oral, BID PRN loperamide (IMODIUM) solution 2 mg, Oral, q3h PRN LORazepam (ATIVAN) tablet 0.5 mg, Oral, q8h PRN magnesium sulfate 2 g in 50 mL bolus, Intravenous, PRN ondansetron (disintegrating) (ZOFRAN ODT) tablet 4 mg, Sublingual, q6h PRN ondansetron (ZOFRAN) injection 4 mg, Intravenous, q6h PRN oxyCODONE (immediate release) (ROXICODONE) tablet 5 mg, Oral, q4h PRN polyethylene glycol 3350 (MIRALAX) packet 17 g, Oral, QDAY PRN potassium chloride 40 mEq in 0.9% NaCl 270 mL bolus, Intravenous, PRN prochlorperazine (COMPAZINE) tablet 5 mg, Oral, q4h PRN prochlorperazine (COMPAZINE) tablet 5 mg, Oral, q8h PRN ?? saline nasal spray (OCEAN; BABY AYR) 0.65 % nasal spray 1 spray, Each Nostril, q30 min PRN VITALS: Vitals: 10/25/19 2023 10/26/19 0009 10/26/19 0439 10/26/19 0723 BP: 134/91 101/71 116/61 142/91 Pulse: (!) 116 (!) 113 (!) 111 (!) 117 Resp: Temp: 98.5 ??F 99.1 ??F 99.2 ??F 99.6 ??F SpO2: 98% 98% 98% 97% Weight: 119.9 kg (264 lb 6.4 oz) Height: Wt Readings from Last 3 Encounters: 10/26/19 119.9 kg (264 lb 6.4 oz) 10/13/19 120.7 kg (266 lb) 10/05/19 118.8 kg (261 lb 14.4 oz) Date 10/25/19699 - 10/26/19 0659 10/26/19699 - 10/27/19 0659 Shift 6109-1693 0774-2735 24 Hour Total 8319-1736 1648-1637 24 Hour Total INTAKE P.O. 4204 444 9308 840 840 I.V.(mL/kg/hr) 819.3(0.6) 924.7(0.6) 1744(0.6) Shift Total(mL/kg) 3213.3(26.8) 1368.7(11.4) 4582(38.2) 840(7) 840(7) OUTPUT Urine(mL/kg/hr) 1600(1.1) 1375(1) 2975(1) 300 300 Shift Total(mL/kg) 1600(13.4) 1375(11.5) 2975(24.8) 300(2.5) 300(2.5) NET 1613.3 -6.3 1607 540 540 Weight (kg) 119.7 119.9 119.9 119.9 119.9 119.9 PHYSICAL EXAM: General appearance - alert, well appearing, and in no distress and acyanotic, in no respiratory distress Mental status - [...] no rashes, no suspicious skin lesions noted CVC - tunneled CVC w/ dressing dry, occlusive, & intact; site without erythema, drainage, or tenderness LABS: Recent Labs Component Name 10/26/19 0012 10/25/19 0013 10/24/19 0015 10/23/19 0030 10/22/19 0015 10/19/19 0021 10/17/19 2343 10/17/19 0020 WBC 0.3* 0.3* 0.3* 0.6* 2.4* - 5.5 6.4 9.2 RBC 3.49* 3.77* 3.57* 3.47* 3.60* - 3.63* 3.52* 3.38* HGB 10.0* 10.7* 10.3* 10.1* 10.4* - 10.4* 10.2* 9.7* HCT 29.4* 31.6* 30.4* 29.7* 30.8* - 31.3* 30.9* 29.9* MCV 84.2 83.8 85.2 85.6 85.6 - 86.2 87.8 88.5 MCH 28.7 28.4 28.9 29.1 28.9 - 28.7 29.0 28.7 MCHC 34.0 33.9 33.9 34.0 33.8 - 33.2 33.0 32.4 PLTCOUNT 10* 32* 75* 118* 169 - 295 321 312 RDWSD 46.8 48.9 49.1 49.7 49.4 - 49.9 50.8* 51.3* RDW 15.4* 15.9* 15.5* 16.0* 15.9* - 15.7* 15.9* 15.9* MPV - - 11.7 11.6 10.7 - 10.3 10.9 10.2 NRBCABS 0.00 0.00 0.00 0.00 0.00 - 0.00 0.00 0.00 NRBCAUTOPCT 0.0 0.0 0.0 0.0 0.0 - 0.0 0.0 0.0 NEUTPCT - - - - - - 96.5* 93.4* 90.0* LYMPHSPCT - - - - - - 2.4* 3.9* 3.9* MONOPCT - - - - - - 0.4* 2.2* 5.3 EOSPCT 5 6 12* 27* 4 - 0.0 0.0 0.0 BASOPCT - - - - - - 0.0 0.0 0.0 IMMGRANSPCT - - - - - - 0.7 0.5 0.8 NEUTABS 0.00* 0.00* 0.01* 0.31* 2.09 - 5.3 6.0 8.3* LYMPHS 0.27* 0.27* 0.25* 0.13* 0.22* - 0.1* 0.3* 0.4* MONO 0.02* 0.01* - - - - 0.02* 0.14 0.49 EOS 0.02 0.02 0.04 0.16 0.10 - 0.00 0.00 0.00 BASO - - - - - - 0.00 0.00 0.00 TOTCELLCNT 100 100 100 100 100 - - - - - = values in this interval not displayed. Recent Labs Component Name 10/26/19 0012 10/25/19 0013 10/24/19 0015 BUN 12 13 16 CREATININE 0.9 0.9 0.8 NA 135* 138 139 POTASSIUM 4.2 4.4 4.2 CL 104 105 107 CO2 23 24 22 CALCIUM 8.7 8.9 8.6 PROT 5.5* 5.7* 5.1* ALB 2.8* 3.0* 3.1* TBILI 0.2 0.3 0.2 ALKPHOS 69 72 64 ALT 46 56* 68* AST 12 12 14 ANIONGAP 12 13 14 BCR 13 14 20 OSMOLALITY 280 287 289 AGRATIO 1.0* 1.1 1.6 EGFR >60 >60 >60 Recent Labs Component Name 10/26/19 0012 10/25/19 0013 10/24/19 0015 MAGNESIUM 1.9 2.0 2.0 Recent Labs Component Name 10/26/19 0012 10/25/19 0013 10/24/19 0015 PHOS 3.5 3.8 4.0 Routine Monitoring: CMV (weekly starting day 0): 10/20/19 - ND RADIOGRAPHY: INFECTIOUS: BCx (10/25/19): pending UCx (10/25/19): pending ASSESSMENT/PLAN: JALIL LUIS is a 49 year old male, who is Day +6 (Day 0 is 10/20/19) of an autologous [...] meds: none needed Transfusion threshold: Hgb > 7 (changing parameters against our policy to try to preserve blood transfusions during the current pandemic COVID19), Plt > 10 Engraftment: pending, started granix on day +5 (10/25/19) OI prophylaxis: Bacterial:??see below Fungal:??Micafungin 50mg QD, changed on 10/18 d/t elevated LFTs PJP:??Bactrim DS MWF resume upon engraftment Viral: Valtrex 500 mg BID Tachycardia & Low Grade Fever -stable tachycardia beginning evening of 10/23 and continues today (10/25) -given neutropenic and asplenic escalated abx -stop Levaquin and start Cefepime 10/24 -CXr negative Cultures pending Diarrhea -denies issues today (10/25) -C diff negative (10/23/19) -Imodium PRN Wheezing -no symptoms today (10/25) -PRN Albuterol neb added 10/23 -CXR (10/24/19) negative Pertinent PMH: Anxiety/Depression-lexapro 10 mg daily Arthritis-on diclofenac BID at home, will stop with admission and use oxycodone PRN 08/17/19-S/P Splenectomy-laparoscopic splenectomy >IVIG given 08/18/19 after splenectomy Restless Leg Syndrome--flares when off diclofenac. Currently on Requip Right IJ venous clot 09/27/19-switched to lovenox 1mg/kg BID. Stopped 10/24/19. Can resume when PLT recovers Discharge Planning: Patients preferred contact information: cell Caregiver: sister, girlfriend Preferred D/C Pharmacy: [facility] Intended lodging: home Referring provider: Cesar Tavares Disposition: Remain on 8N pending count recovery Asim Ramirez APRN, ENVIRONMENTAL ECONOMIST-C [facility] Blood Marrow and Transplant Pager: [phone] I independently interviewed and examined Jalil Luis with the BMT advanced practice provider. I reviewed my findings and assessment with the advanced practice provider and the patient. I reviewed the below note. Please see note for full detail. Day 6 Tachycardia persists, Tm 99.0s, BP stable Stopping IVF Empirically escalated to cefe yesterday Remember asplenic On Granix Elda for early rise in LFTs Hillary Apple MD MSc geospatial extractor analysis Interim Director, Division of Hematology/Oncology [facility] * Merle Jarvis - 10/25/2019 10:30 AM CDT [facility] Department of Physical Medicine & Rehabilitation Progress Note Patient: Jalil Luis Med Record Number: [id number] Date of : 1970 Age: [age] year old performed level 1&2 exercises x 10,15 reps. He reports that he's too weak to walk today. Merle Jarvis Restorative Tech. * Asim Ramirez APRN-CLEAR COAT SPRAYER - 10/25/2019 7:29 AM CDT Autologous Hematopoietic Stem Cell Daily Note: PATIENT IDENTIFIERS: JALIL LUIS is a 49 year old male who is Day +5 (Day 0 is 10/20/19) of an autologous peripheralblood stem cell transplant with a 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 INTERVAL HISTORY: Feeling fatigued this morning Denies specific symptoms Denies SOB, difficulty breathing Denies N/V/F/C/D Reports stable appetite I&O not accurate as no intake or output was charted on dayshift yesterday Pt did receive 1L IV bolus yesterday and was started on continous fluid last night due to tachycardia Temp slightly elevated, but nothing over 100 and BP stable Denies SOB or difficulty breathing Denies back pain or headache Staying active walking daily Reviewed starting Granix today ROS: A comprehensive review of systems was negative except for: as noted above MEDICATIONS FOR CURRENT ENCOUNTER: SCHEDULED MEDICATIONS: 0.9% NaCl injection 10 mL, Intracatheter, q8h bacitracin topical ointment, Topical, TID escitalopram (LEXAPRO) tablet 10 mg, Oral, QDAY heparin lock flush injection 500 Units, Intravenous, BID levoFLOXacin (LEVAQUIN) tablet 500 mg, Oral, QDAY micafungin (MYCAMINE) 50 mg in 0.9% NaCl IVPB, Intravenous, q24h pantoprazole EC (PROTONIX) tablet 40 mg, Oral, QDAY rOPINIRole (REQUIP) tablet 0.25 mg, Oral, AT BEDTIME tbo-filgrastim (GRANIX) prefilled syringe 480 mcg, Subcutaneous, Once ?? valACYclovir (VALTREX) tablet 500 mg, Oral, BID CONTINUOUS MEDICATIONS: ?? 0.9% NaCl infusion, Intravenous, Continuous PRN MEDICATIONS: 0.9% NaCl injection 10 mL, Intracatheter, PRN albuterol HFA (PROVENTIL;VENTOLIN;PROAIR) 108 (90 Base) MCG/ACT inhaler 2 puff, Inhalation, q4h PRN docusate sodium (COLACE) capsule 100 mg, Oral, BID PRN loperamide (IMODIUM) solution 2 mg, Oral, q3h PRN LORazepam (ATIVAN) tablet 0.5 mg, Oral, q8h PRN magnesium sulfate 2 g in 50 mL bolus, Intravenous, PRN ondansetron (disintegrating) (ZOFRAN ODT) tablet 4 mg, Sublingual, q6h PRN ondansetron (ZOFRAN) injection 4 mg, Intravenous, q6h PRN oxyCODONE (immediate release) (ROXICODONE) tablet 5 mg, Oral, q4h PRN polyethylene glycol 3350 (MIRALAX) packet 17 g, Oral, QDAY PRN potassium chloride 40 mEq in 0.9% NaCl 270 mL bolus, Intravenous, PRN prochlorperazine (COMPAZINE) tablet 5 mg, Oral, q4h PRN prochlorperazine (COMPAZINE) tablet 5 mg, Oral, q8h PRN ?? saline nasal spray (OCEAN; BABY AYR) 0.65 % nasal spray 1 spray, Each Nostril, q30 min PRN VITALS: Vitals: 10/24/19 2351 10/25/19 0435 10/25/19 0527 10/25/19 0737 BP: 122/92 118/71 127/88 Pulse: (!) 124 (!) 115 (!) 118 Resp: Temp: 99.4 ??F 99.1 ??F 98.9 ??F SpO2: 99% 97% 98% Weight: 119.6 kg (263 lb 9.6 oz) Height: Wt Readings from Last 3 Encounters: 10/25/19 119.6 kg (263 lb 9.6 oz) 10/13/19 120.7 kg (266 lb) 10/05/19 118.8 kg (261 lb 14.4 oz) Date 10/24/19 07 - 10/25/19 0659 10/25/19 07 - 10/26/19 0659 Shift 8244-7994 4812-9492 24 Hour Total 7999-8559 5001-8614 24 Hour Total INTAKE P.O. 710 710 I.V.(mL/kg/hr) 1568.7(1.1) 1568.7(0.5) Shift Total(mL/kg) 2278.7(19.1) 2278.7(19.1) OUTPUT Urine(mL/kg/hr) 4250(3) 4250(1.5) Shift Total(mL/kg) 4250(35.5) 4250(35.5) NET -1971.3 -1971.3 Weight (kg) 121.4 119.6 119.6 119.6 119.6 119.6 PHYSICAL EXAM: General appearance - alert, well appearing, and in no distress and acyanotic, in no respiratory distress Mental status - [...] nondistended, no masses or organomegaly, bowel sounds normal, scattered ecchymosis to lower abd, healed surgical scars Neurological - alert, oriented, normal speech, no focal findings or movement disorder noted Musculoskeletal - no joint tenderness, deformity or swelling, no muscular tenderness noted Extremities - peripheral pulses normal, no pedal edema, no clubbing or cyanosis CVC - tunneled CVC w/ dressing dry, occlusive, & intact; site without erythema, drainage, or tenderness LABS: Recent Labs Component Name 10/25/19 0013 10/24/19 0015 10/23/19 0030 10/22/19 0015 10/19/19 0021 10/17/19 2343 10/17/19 0020 WBC 0.3* 0.3* 0.6* 2.4* - 5.5 6.4 9.2 RBC 3.77* 3.57* 3.47* 3.60* - 3.63* 3.52* 3.38* HGB 10.7* 10.3* 10.1* 10.4* - 10.4* 10.2* 9.7* HCT 31.6* 30.4* 29.7* 30.8* - 31.3* 30.9* 29.9* MCV 83.8 85.2 85.6 85.6 - 86.2 87.8 88.5 MCH 28.4 28.9 29.1 28.9 - 28.7 29.0 28.7 MCHC 33.9 33.9 34.0 33.8 - 33.2 33.0 32.4 PLTCOUNT 32* 75* 118* 169 - 295 321 312 RDWSD 48.9 49.1 49.7 49.4 - 49.9 50.8* 51.3* RDW 15.9* 15.5* 16.0* 15.9* - 15.7* 15.9* 15.9* MPV - 11.7 11.6 10.7 - 10.3 10.9 10.2 NRBCABS 0.00 0.00 0.00 0.00 - 0.00 0.00 0.00 NRBCAUTOPCT 0.0 0.0 0.0 0.0 - 0.0 0.0 0.0 NEUTPCT - - - - - 96.5* 93.4* 90.0* LYMPHSPCT - - - - - 2.4* 3.9* 3.9* MONOPCT - - - - - 0.4* 2.2* 5.3 EOSPCT 6 12* 27* 4 - 0.0 0.0 0.0 BASOPCT - - - - - 0.0 0.0 0.0 IMMGRANSPCT - - - - - 0.7 0.5 0.8 NEUTABS 0.00* 0.01* 0.31* 2.09 - 5.3 6.0 8.3* LYMPHS 0.27* 0.25* 0.13* 0.22* - 0.1* 0.3* 0.4* MONO 0.01* - - - - 0.02* 0.14 0.49 EOS 0.02 0.04 0.16 0.10 - 0.00 0.00 0.00 BASO - - - - - 0.00 0.00 0.00 TOTCELLCNT 100 100 100 100 - - - - - = values in this interval not displayed. Recent Labs Component Name 10/25/19 0013 10/24/19 0015 10/23/19 0031 BUN 13 16 20 CREATININE 0.9 0.8 1.0 NA 138 139 143 POTASSIUM 4.4 4.2 4.3 CL 105 107 109* CO2 24 22 21* CALCIUM 8.9 8.6 8.0* PROT 5.7* 5.1* 5.1* ALB 3.0* 3.1* 3.0* TBILI 0.3 0.2 0.4 ALKPHOS 72 64 64 ALT 56* 68* 77* AST 12 14 19 ANIONGAP 13 14 17 BCR 14 20 20 OSMOLALITY 287 289 298 AGRATIO 1.1 1.6 1.4 EGFR >60 >60 >60 Recent Labs Component Name 10/25/19 0013 10/24/19 0015 10/23/19 0031 MAGNESIUM 2.0 2.0 2.0 Recent Labs Component Name 10/25/19 0013 10/24/19 0015 10/23/19 0031 PHOS 3.8 4.0 4.0 Routine Monitoring: CMV (weekly starting day 0): 10/20/19 - ND RADIOGRAPHY: Chest XR (10/25/19): pending Chest XR (10/23/19): No acute process ASSESSMENT/PLAN: JALIL LUIS is a 49 year old male, who is Day +5 (Day 0 is 10/20/19) of an autologous [...] meds: none needed Transfusion threshold: Hgb > 7 (changing parameters against our policy to try to preserve blood transfusions during the current pandemic COVID19), Plt > 10 Engraftment: pending, started granix on day +5 (10/25/19) OI prophylaxis: Bacterial:??see below Fungal:??Micafungin 50mg QD, changed on 10/18 d/t elevated LFTs PJP:??Bactrim DS MWF resume upon engraftment Viral: Valtrex 500 mg BID Tachycardia & Low Grade Fever -tachycardia beginning evening of 10/23 and continues today (10/24) despite IV fluids -given neutropenic and asplenic will escalate abx -stop Levaquin and start Cefepime 10/24 -Cultures sent and CXr obtained Diarrhea -C diff negative (10/23/19) -Imodium PRN Wheezing -no symptoms today (10/24) -PRN Albuterol neb added 10/23 -CXR (10/24/19) negative Pertinent PMH: Anxiety/Depression-lexapro 10 mg daily Arthritis-on diclofenac BID at home, will stop with admission and use oxycodone PRN 08/17/19-S/P Splenectomy-laparoscopic splenectomy >IVIG given 08/18/19 after splenectomy Restless Leg Syndrome--flares when off diclofenac. Currently on Requip Right IJ venous clot 09/27/19-switched to lovenox 1mg/kg BID. Stopped 10/24/19. Can resume when PLT recovers Discharge Planning: Patients preferred contact information: cell Caregiver: sister, girlfriend Preferred D/C [facility]acy: [facility] Intended lodging: home Referring provider: Cesar Tavares Disposition: Remain on 8N pending count recovery Asim Ramirez APRN, ENVIRONMENTAL ECONOMIST-C [facility] Blood Marrow and Transplant Pager: [phone] I independently interviewed and examined Jalil Donal Mindy with the BMT advanced practice provider. I reviewed my findings and assessment with the advanced practice provider and the patient. I reviewed the below note. Please see note for full detail. Day 5 BP stable, tachycardia new Started continuous IVF No fevers Feeling fatigued Neutropenic Remember asplenic Broaden to cefe, culture Neupogen starting today Elda for early rise in LFTs Hillary Apple MD MSc geospatial extractor analysis Interim Director, Division of Hematology/Oncology [facility] * Rafaela Salgado, BINDERY CUTTER OPERATOR-CLEAR COAT SPRAYER - 10/25/2019 12:10 AM CDT HPI Went in to assess Aurelio, due to increasing tachycardia. Earlier in the shift, he was upset about getting another bolus at 2100, because he already had 2 today and he feels like all of his intake and output was not charted. Reports the boluses keep him up urinating and preventing sleep. He refused the 2100 bolus, but agreed to get twice a day boluses at 0600 and 1800. There is no intake or output charted for day shift. Around 0000, his heart rate was 124. He denies feeling anxious or having pain. Was very defensive when asked assessment questions. He reports he feels fine, it's just because he is neutropenic. Educated patient that tachycardia could be related to dehydration or possible infectious process since he is neutropenic and has had low grade temperatures tonight. He denies feeling chilled or febrile. Denies feeling dizzy with position changes. We discussed that he could either get a fluid bolus over1 hour or continuous fluids. He preferred to try continuous IV fluids at this time. Also discussed that if he spikes a fever, he will need blood cultures and antibiotics. Vitals Filed Vitals: 10/24/19 1243 10/24/19 1719 10/24/19200010/24/19 2351 BP: 125/83 128/82 123/76 122/92 Pulse: 98 (!) 117 (!) 119 (!) 124 Resp: Temp: 98.5 ??F 99.9 ??F 99.7 ??F 99.4 ??F TempSrc: Oral Oral Oral Oral SpO2: 98% 98% 98% 99% Weight: Height: Physical Exam General appearance - alert, well appearing, and in no distress Mental status - oriented to person, place, and time, appears frustrated Chest - clear to auscultation, no wheezes, rales or rhonchi, symmetric air entry Heart - tachycardia with regular rhythm, normal S1, S2, no murmurs, rubs, clicks or gallops Assessment & Plan Tachycardia -Started NS @75ml/hr and discontinued BID NS boluses Rafaela Salgado APRN, [facility] Blood and Marrow Transplant [facility] Pager: [phone] * Yovana Torres RN - 10/24/2019 9:19 PM CDT Upon shift assessment, patient appears very angry and verbalizing concern of I/Os not being documented correctly as this RN explains that a NS bolus is ordered to be given tonight. Patient frustratedand angrily states, I am eating and drinking, and peeing, there are 3 full urinals in the bathroomright now that haven't been emptied all day! This RN emptied urinals and charted output. Continuedto allow patient to verbalize concern and managed to calm patient by listening and giving positive reassurance that I/Os will be documented correctly. Patient appeared more calm as this RN exited room following completion of assessment. Discussed with Rafaela Brannon NP whom ordered time changes for NS boluses. Will continue to monitor. * Ewa Reed - 10/24/2019 9:48 AM CDT Patient declined * Vane Romero APRN-CNP - 10/24/2019 7:43 AM CDT Autologous Hematopoietic Stem Cell Daily Note: PATIENT IDENTIFIERS: JALIL LUIS is a 49 year old male who is Day +4 (Day 0 is 10/20/19) of an autologous peripheralblood stem cell transplant with a 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 INTERVAL HISTORY: Feels tired Denies N/V/F/C Had diarrhea in am yesterday Eats and drinks well. Does not want cont iVF Ambulates through out the day RN reported she ausculted wheezing in lower lobe. Pt did not feel like he was wheezing or SOB. Had headache yesterday evening, resolved without intervention ROS: A comprehensive review of systems was negative except for: as noted above MEDICATIONS FOR CURRENT ENCOUNTER: SCHEDULED MEDICATIONS: 0.9% NaCl injection 10 mL, Intracatheter, q8h enoxaparin (LOVENOX) injection 120 mg, Subcutaneous, q12h escitalopram (LEXAPRO) tablet 10 mg, Oral, QDAY heparin lock flush injection 500 Units, Intravenous, BID levoFLOXacin (LEVAQUIN) tablet 500 mg, Oral, QDAY micafungin (MYCAMINE) 50 mg in 0.9% NaCl IVPB, Intravenous, q24h pantoprazole EC (PROTONIX) tablet 40 mg, Oral, QDAY rOPINIRole (REQUIP) tablet 0.25 mg, Oral, AT BEDTIME valACYclovir (VALTREX) tablet 500 mg, Oral, BID [COMPLETED] 0.9% NaCl IV Bolus, Intravenous, Once ?? [COMPLETED] 0.9% NaCl IV Bolus, Intravenous, Once ?? CONTINUOUS MEDICATIONS: PRN MEDICATIONS: 0.9% NaCl injection 10 mL, Intracatheter, PRN albuterol HFA (PROVENTIL;VENTOLIN;PROAIR) 108 (90 Base) MCG/ACT inhaler 2 puff, Inhalation, q4h PRN docusate sodium (COLACE) capsule 100 mg, Oral, BID PRN loperamide (IMODIUM) solution 2 mg, Oral, q3h PRN LORazepam (ATIVAN) tablet 0.5 mg, Oral, q8h PRN magnesium sulfate 2 g in 50 mL bolus, Intravenous, PRN ondansetron (disintegrating) (ZOFRAN ODT) tablet 4 mg, Sublingual, q6h PRN ondansetron (ZOFRAN) injection 4 mg, Intravenous, q6h PRN oxyCODONE (immediate release) (ROXICODONE) tablet 5 mg, Oral, q4h PRN polyethylene glycol 3350 (MIRALAX) packet 17 g, Oral, QDAY PRN potassium chloride 40 mEq in 0.9% NaCl 270 mL bolus, Intravenous, PRN prochlorperazine (COMPAZINE) tablet 5 mg, Oral, q4h PRN prochlorperazine (COMPAZINE) tablet 5 mg, Oral, q8h PRN ?? saline nasal spray (OCEAN; BABY AYR) 0.65 % nasal spray 1 spray, Each Nostril, q30 min PRN VITALS: Vitals: 10/23/19 1146 10/23/19 1941 10/24/19 0018 10/24/19 0349 BP: 133/88 125/82 107/60 103/57 Pulse: 87 (!) 112 103 (!) 111 Resp: 18 18 18 16 Temp: 98.5 ??F 99 ??F 99 ??F 98.3 ??F SpO2: 99% 99% 100% 98% Weight: 121.4 kg (267 lb 9.6 oz) Height: Wt Readings from Last 3 Encounters: 10/24/19 121.4 kg (267 lb 9.6 oz) 10/13/19 120.7 kg (266 lb) 10/05/19 118.8 kg (261 lb 14.4 oz) Date 10/23/19 07 - 10/24/19 0659 10/24/19 0700 - 10/25/19 0659 Shift 4831-1436 5098-8878 24 Hour Total 3093-5082 6816-1469 24 Hour Total INTAKE P.O. 1552 546 3336 I.V.(mL/kg/hr) 100.2(0.1) 1000.1(0.7) 1100.3(0.4) Shift Total(mL/kg) 1690.2(13.8) 1581.1(13) 3271.3(27) OUTPUT Urine(mL/kg/hr) 650(0.4) 2625(1.8) 3275(1.1) Shift Total(mL/kg) 650(5.3) 2625(21.6) 3275(27) NET 1040.2 -1043.9 -3.7 Weight (kg) 122.2 121.4 121.4 121.4 121.4 121.4 PHYSICAL EXAM: Physical Examination: General appearance - [...] - soft, nontender, nondistended, no masses or organomegaly. Ecchymosis on lower abdomen. Scars from previous surgery present Extremities - peripheral pulses normal, no pedal edema, no clubbing or cyanosis Skin - normal coloration and turgor, no rashes, no suspicious skin lesions noted CVC - tunneled CVC w/ dressing dry, occlusive, & intact; site without erythema, drainage, or tenderness LABS: Recent Labs Component Name 10/24/19 0015 10/23/19 0030 10/22/19 0015 10/19/19 0021 10/17/19 2343 10/17/19 0020 WBC 0.3* 0.6* 2.4* - 5.5 6.4 9.2 RBC 3.57* 3.47* 3.60* - 3.63* 3.52* 3.38* HGB 10.3* 10.1* 10.4* - 10.4* 10.2* 9.7* HCT 30.4* 29.7* 30.8* - 31.3* 30.9* 29.9* MCV 85.2 85.6 85.6 - 86.2 87.8 88.5 MCH 28.9 29.1 28.9 - 28.7 29.0 28.7 MCHC 33.9 34.0 33.8 - 33.2 33.0 32.4 PLTCOUNT 75* 118* 169 - 295 321 312 RDWSD 49.1 49.7 49.4 - 49.9 50.8* 51.3* RDW 15.5* 16.0* 15.9* - 15.7* 15.9* 15.9* MPV 11.7 11.6 10.7 - 10.3 10.9 10.2 NRBCABS 0.00 0.00 0.00 - 0.00 0.00 0.00 NRBCAUTOPCT 0.0 0.0 0.0 - 0.0 0.0 0.0 NEUTPCT - - - - 96.5* 93.4* 90.0* LYMPHSPCT - - - - 2.4* 3.9* 3.9* MONOPCT - - - - 0.4* 2.2* 5.3 EOSPCT 12* 27* 4 - 0.0 0.0 0.0 BASOPCT - - - - 0.0 0.0 0.0 IMMGRANSPCT - - - - 0.7 0.5 0.8 NEUTABS 0.01* 0.31* 2.09 - 5.3 6.0 8.3* LYMPHS 0.25* 0.13* 0.22* - 0.1* 0.3* 0.4* MONO - - - - 0.02* 0.14 0.49 EOS 0.04 0.16 0.10 - 0.00 0.00 0.00 BASO - - - - 0.00 0.00 0.00 TOTCELLCNT 100 100 100 - - - - - = values in this interval not displayed. Recent Labs Component Name 10/24/195 10/23/191 10/22/19 001 BUN 16 20 21 CREATININE 0.8 1.0 0.9 NA 139 143 141 POTASSIUM 4.2 4.3 4.3 CL 107 109* 105 CO2 22 21* 27 CALCIUM 8.6 8.0* 8.9 PROT 5.1* 5.1* 5.8* ALB 3.1* 3.0* 3.4 TBILI 0.2 0.4 0.2 ALKPHOS 64 64 73 ALT 68* 77* 103* AST 14 19 23 ANIONGAP 14 17 13 BCR 20 20 23 OSMOLALITY 289 298 296 AGRATIO 1.6 1.4 1.4 EGFR >60 >60 >60 Recent Labs Component Name 10/24/195 10/23/19 0031 10/22/19 0015 MAGNESIUM 2.0 2.0 2.1 Recent Labs Component Name 10/24/19 0015 10/23/19 0031 10/22/19 0015 PHOS 4.0 4.0 3.6 Routine Monitoring: CMV (weekly starting day 0): 10/20/19 - ND RADIOGRAPHY: Chest XR (10/24/19): There has been interval removal of a right internal jugular approach port catheter. There is been interval placement of a left internal jugular approach central venous catheter with the tip superimposing the superior vena cava.The lungs are clear. There is no focal consolidation, pleural effusion, orpneumothorax. The cardiomediastinal silhouette is normal. The visible osseous thorax is intact. ASSESSMENT/PLAN: JALIL LUIS is a 49 year old male, who is Day +4 (Day 0 is 10/20/19) of an autologous peripheral blood stem cell transplant with a 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 SYSTEMS: Marginal Zone Lymphoma in CR2 pre-transplant Schema: 5A Prep: BEAM, Cell count 10.4 x 10^6 CD34+cells/kg in 5 bags; Expected pancytopenia with transplant: CMV +, transfusion pre meds: none needed Transfusion threshold: Hgb > 7 (changing parameters against our policy to try to preserve blood transfusions during the current pandemic COVID19), Plt > 10 Engraftment: pending, will start granix on day +5 OI prophylaxis: Bacterial:?? levaquin 500 mg daily Fungal:??Micafungin 50mg QD, changed on 10/18 d/t elevated LFTs PJP:??Bactrim DS MWF resume upon engraftment Viral: Valtrex 500 mg BID Diarrhea -C diff negative (10/23/19) -Imodium PRN Wheezing -Albuterol neb TID today (10/24/19) And PRN -CXR (10/24/19) , negative Pertinent PMH: Anxiety/Depression-lexapro 10 mg daily Arthritis-on diclofenac BID at home, will stop with admission and use oxycodone PRN 08/17/19-S/P Splenectomy-laparoscopic splenectomy >IVIG given 08/18/19 after splenectomy Restless Leg Syndrome--flares when off diclofenac. Currently on Requip Right IJ venous clot 09/27/19-switched to lovenox 1mg/kg BID. Stopped 10/24/19. Can resume when PLT recovers Discharge Planning: Patients preferred contact information: cell Caregiver: sister, girlfriend Preferred D/C Pharmacy: [facility] Intended lodging: home Referring provider: Cesar Chaitanya F/U post transplant: Planned disease evaluation: day [address], will discuss if needs bone marrow as well. Planned post transplant therapy: none planned at this time -maintain on PCN VK vs Levaquin post-splenectomy until he can be re-vaccinated and adequate titers demonstrated Disposition: Remain on 8N Vane Romero JOSE DAVID, ENVIRONMENTAL ECONOMIST-C [facility] Blood Marrow and Transplant Associated attestation - Tony Dumont MD - 10/24/2019 1:00 PM CDT I independently interviewed and examined Jalil Luis with the BMT advanced practice provider. I reviewed my findings and assessment with the advanced practice provider and the patient. I reviewed the below note. Please see note for full detail. * Rafaela Salgado APRN-CLEAR COAT SPRAYER - 10/23/2019 8:51 PM CDT HPI RN notified me that she noted expiratory wheezes to RUL on exam. Patient reported to her that he did not get up and move as much as previous days today. RN gave him an incentive spirometer to use. Aurelio reports feeling well at this time. He has been SOB on exertion for the past few days. He denies SOB at rest or at this time. Reports he used the incentive spirometer after RN suggested it, and he will continue to use it. States he has a history of asthma, but has not used an inhaler in a while. Did have two visitors today, respiratory screening negative. Vitals: Filed Vitals: 10/23/19 0423 10/23/19 0431 10/23/19 1146 10/23/19 1941 BP: 130/84 133/88 125/82 Pulse: 98 87 (!) 112 Resp: 18 18 18 Temp: 98.8 ??F 98.5 ??F 99 ??F TempSrc: Oral Oral Oral SpO2: 98% 99% 99% Weight: 122.2 kg (269 lb 6.4 oz) Height: Physical Examination: General appearance - alert, well appearing, and in no distress Mental status - oriented to person, place, and time, normal mood, behavior, speech, dress, motor activity, and thought processes Chest - expiratory wheezes noted to right upper lobe, no rales or rhonchi, symmetric air entry, no tachypnea, retractions or cyanosis Heart - tachycardic, regular rhythm, normal S1, S2, no murmurs, rubs, clicks or gallops Assessment & Plan: Expiratory Wheezes, RUL -?r/t asthma -Ordered CXR -Ordered albuterol inhaler PRN Rafaela Salgado APRN, AGNP-C Blood and Marrow Transplant [facility] Pager: [phone] * Ewa Reed - 10/23/2019 10:50 AM CDT Patient had already performed exercises * Vane Romero APRN-CNP - 10/23/2019 7:34 AM CDT Autologous Hematopoietic Stem Cell Daily Note: PATIENT IDENTIFIERS: JALIL LUIS is a 49 year old male who is Day +3 (Day 0 is 10/20/19) of an autologous peripheralblood stem cell transplant with a 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 INTERVAL HISTORY: Feels well over all Denies N/V/F/C Started having diarrhea yesterday Eats and drinks well Still gets up through out the day Denies headaches, last one was yesterday am No other complaints, educated on neutropenia and precautions ROS: A comprehensive review of systems was negative except for: as noted above MEDICATIONS FOR CURRENT ENCOUNTER: SCHEDULED MEDICATIONS: 0.9% NaCl injection 10 mL, Intracatheter, q8h enoxaparin (LOVENOX) injection 120 mg, Subcutaneous, q12h escitalopram (LEXAPRO) tablet 10 mg, Oral, QDAY heparin lock flush injection 500 Units, Intravenous, BID levoFLOXacin (LEVAQUIN) tablet 500 mg, Oral, QDAY micafungin (MYCAMINE) 50 mg in 0.9% NaCl IVPB, Intravenous, q24h pantoprazole EC (PROTONIX) tablet 40 mg, Oral, QDAY rOPINIRole (REQUIP) tablet 0.25 mg, Oral, AT BEDTIME valACYclovir (VALTREX) tablet 500 mg, Oral, BID ?? [COMPLETED] 0.9% NaCl IV Bolus, Intravenous, Once ?? CONTINUOUS MEDICATIONS: PRN MEDICATIONS: 0.9% NaCl injection 10 mL, Intracatheter, PRN docusate sodium (COLACE) capsule 100 mg, Oral, BID PRN LORazepam (ATIVAN) tablet 0.5 mg, Oral, q8h PRN magnesium sulfate 2 g in 50 mL bolus, Intravenous, PRN ondansetron (disintegrating) (ZOFRAN ODT) tablet 4 mg, Sublingual, q6h PRN ondansetron (ZOFRAN) injection 4 mg, Intravenous, q6h PRN oxyCODONE (immediate release) (ROXICODONE) tablet 5 mg, Oral, q4h PRN polyethylene glycol 3350 (MIRALAX) packet 17 g, Oral, QDAY PRN potassium chloride 40 mEq in 0.9% NaCl 270 mL bolus, Intravenous, PRN prochlorperazine (COMPAZINE) tablet 5 mg, Oral, q4h PRN prochlorperazine (COMPAZINE) tablet 5 mg, Oral, q8h PRN ?? saline nasal spray (OCEAN; BABY AYR) 0.65 % nasal spray 1 spray, Each Nostril, q30 min PRN VITALS: Vitals: 10/22/19 1245 10/22/19 1947 10/23/19 0423 10/23/19 0431 BP: 128/87 119/81 130/84 Pulse: 79 98 98 Resp: 18 18 Temp: 98.4 ??F 98.4 ??F 98.8 ??F SpO2: 99% 97% 98% Weight: 122.2 kg (269 lb 6.4 oz) Height: Wt Readings from Last 3 Encounters: 10/23/19 122.2 kg (269 lb 6.4 oz) 10/13/19 120.7 kg (266 lb) 10/05/19 118.8 kg (261 lb 14.4 oz) Date 10/22/19 0700 - 10/23/19 0659 10/23/19 0700 - 03/22/20 0659 Shift 3796-3847 1853-2675 24 Hour Total 3880-2390 4218-3534 24 Hour Total INTAKE P.O. 0849 580 4129 I.V.(mL/kg/hr) 1100(0.8) 1100(0.4) Shift Total(mL/kg) 2980(24.5) 581(4.8) 3561(29.1) OUTPUT Urine(mL/kg/hr) 1300(0.9) 300(0.2) 1600(0.5) Shift Total(mL/kg) 1300(10.7) 300(2.5) 1600(13.1) NET 0643 911 0394 Weight (kg) 121.5 122.2 122.2 122.2 122.2 122.2 PHYSICAL EXAM: Physical Examination: General appearance - [...] clicks or gallops Abdomen - soft, nontender, ecchymosis, nondistended, no masses or organomegaly Extremities - peripheral pulses normal, no pedal edema, no clubbing or cyanosis Skin - normal coloration and turgor, no rashes, no suspicious skin lesions noted CVC - tunneled CVC w/ dressing dry, occlusive, & intact; site without erythema, drainage, or tenderness LABS: Recent Labs Component Name 10/23/19 0030 10/22/19 0015 10/20/19 2359 10/19/19 0021 10/17/19 2343 10/17/19 0020 WBC 0.6* 2.4* 7.6 - 5.5 6.4 9.2 RBC 3.47* 3.60* 3.42* - 3.63* 3.52* 3.38* HGB 10.1* 10.4* 10.0* - 10.4* 10.2* 9.7* HCT 29.7* 30.8* 29.2* - 31.3* 30.9* 29.9* MCV 85.6 85.6 85.4 - 86.2 87.8 88.5 MCH 29.1 28.9 29.2 - 28.7 29.0 28.7 MCHC 34.0 33.8 34.2 - 33.2 33.0 32.4 PLTCOUNT 118* 169 204 - 295 321 312 RDWSD 49.7 49.4 49.2 - 49.9 50.8* 51.3* RDW 16.0* 15.9* 15.7* - 15.7* 15.9* 15.9* MPV 11.6 10.7 10.5 - 10.3 10.9 10.2 NRBCABS 0.00 0.00 0.00 - 0.00 0.00 0.00 NRBCAUTOPCT 0.0 0.0 0.0 - 0.0 0.0 0.0 NEUTPCT - - - - 96.5* 93.4* 90.0* LYMPHSPCT - - - - 2.4* 3.9* 3.9* MONOPCT - - - - 0.4* 2.2* 5.3 EOSPCT 27* 4 1 - 0.0 0.0 0.0 BASOPCT - - - - 0.0 0.0 0.0 IMMGRANSPCT - - - - 0.7 0.5 0.8 NEUTABS 0.31* 2.09 7.45* - 5.3 6.0 8.3* LYMPHS 0.13* 0.22* 0.08* - 0.1* 0.3* 0.4* MONO - - - - 0.02* 0.14 0.49 EOS 0.16 0.10 0.08 - 0.00 0.00 0.00 BASO - - - - 0.00 0.00 0.00 TOTCELLCNT 100 100 100 - - - - - = values in this interval not displayed. Recent Labs Component Name 10/23/19 0031 10/22/19 0015 10/20/19 2359 BUN 20 21 27* CREATININE 1.0 0.9 1.0 NA 143 141 141 POTASSIUM 4.3 4.3 4.3 CL 109* 105 105 CO2 21* 27 27 CALCIUM 8.0* 8.9 8.4 PROT 5.1* 5.8* 5.3* ALB 3.0* 3.4 3.2* TBILI 0.4 0.2 0.2 ALKPHOS 64 73 77 ALT 77* 103* 122* AST 19 23 50* ANIONGAP 17 13 13 BCR 20 23 27* OSMOLALITY 298 296 299 AGRATIO 1.4 1.4 1.5 EGFR >60 >60 >60 Recent Labs Component Name 10/23/19 0031 10/22/19 0015 10/20/19 2359 MAGNESIUM 2.0 2.1 2.2 Recent Labs Component Name 10/23/19 0031 10/22/19 0015 10/20/19 2359 PHOS 4.0 3.6 3.2 Routine Monitoring: CMV (weekly starting day 0): 10/20/19 - RADIOGRAPHY: ASSESSMENT/PLAN: JALIL LUIS is a 49 year old male, who is Day +3 (Day 0 is 10/20/19) of an autologous peripheral blood stem cell transplant with a 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 SYSTEMS: Marginal Zone Lymphoma in CR2 pre-transplant Schema: 5A Prep: BEAM, Cell count 10.4 x 10^6 CD34+cells/kg in 5 bags; Expected pancytopenia with transplant: CMV +, transfusion pre meds: none needed Transfusion threshold: Hgb > 7 (changing parameters against our policy to try to preserve blood transfusions during the current pandemic COVID19), Plt > 10 Engraftment: pending, will start granix on day +5 OI prophylaxis: Bacterial:?? levaquin 500 mg daily Fungal:??Micafungin 50mg QD, changed on 10/18 d/t elevated LFTs PJP:??Bactrim DS MWF resume upon engraftment Viral: Valtrex 500 mg BID Diarrhea -C diff pending (10/23/19) Right IJ venous clot 09/27/19 -clot in right IJ that goes into the proximal subclavian vein -switched to lovenox 1mg/kg BID -Plan to decrease to ppx lovenox when plts <30. Can hold anticoagulation while plts <30 Pertinent PMH: Anxiety/Depression-lexapro 10 mg daily Arthritis-on diclofenac BID at home, will stop with admission and use oxycodone PRN 08/17/19-S/P Splenectomy-laparoscopic splenectomy >IVIG given 08/18/19 after splenectomy Restless Leg Syndrome--flares when off diclofenac. Currently on Requip Discharge Planning: Patients preferred contact information: cell Caregiver: sister, girlfriend Preferred D/C Pharmacy: [facility] Intended lodging: home Referring provider: Cesar Tavares F/U post transplant: Planned disease evaluation: day [address], will discuss if needs bone marrow as well. Planned post transplant therapy: none planned at this time -maintain on PCN VK vs Levaquin post-splenectomy until he can be re-vaccinated and adequate titers demonstrated Disposition: Remain on 8N Vane Romero BINDERY CUTTER OPERATOR, ENVIRONMENTAL ECONOMIST-C [facility] Blood Marrow and Transplant Associated attestation - Tony Dumont MD - 10/23/2019 3:40 PM CDT I independently interviewed and examined Jalil Luis with the BMT advanced practice provider. I reviewed my findings and assessment with the advanced practice provider and the patient. I reviewed the below note. Please see note for full detail. * Alecia Melissa RN - 10/22/2019 5:03 PM CDT BMT Interdisciplinary Discharge Planning Rounds Disease: marginal zone lymphoma Disposition Location: home Caregiver: sister, girlfriend Insurance: [employer] [facility] Anticipated Discharge Date: ~11/02 Patient's Current Condition: Day +2 auto, doing well overall IV/Home health/Equipment Needs: Home Health Company and #: [facility] and #: [facility] if needed Barriers to discharge: count recovery Follow up Plan: RTC day after d/c Orthopaedic Physician Assistant tasks to f/u: Planned disease evaluation: day [address], will discuss if needs bone marrow as well. Planned post transplant therapy: none planned at this time -maintain on PCN VK vs Levaquin post-splenectomy until he can be re-vaccinated and adequate titers demonstrated F/U Consults/Specialty appts needed post DC: Discharge Medications: Specialty Pharmacy and #: BMT Team Physician: Dr. Apple Nurse Practitioner: Tiffanie Dumont Turf Grower: Khushboo Bench Machine Operator: Maryjo Prior to discharge: (Please date when completed) [x] Patient has solid caregiver plan as documented by SW [] Afebrile and off antibiotics for 24 hours [] Able to drink at least 1L of fluids per day w/o N/V or If unable to drink 1 liter of NS, will come to clinic for IVF???s daily until they are able to drink [] Able to walk on own and is walking in the halls at least 2 times per day on their own or If not able to walk on own, will need an assist device prior to leaving ? Home medication reconciliation complete ? Order medications from: Pharmacy: Medications: ? Prior authorizations completed ? Medications delivered to room prior to discharge Date planned/completed: / ? Transplant kit ordered ([facility]) ? Verify delivery of medications ? Med Action plan complete ? Education from PharmD- at least 24 hour prior to DC ? Education from rail car repairer coordinator- at least 24 hours prior to DC ? F/U appointments made ? Clinic meds ordered in therapy plan ? Report given to outpatient team * Tenisha Cyr, PT - 10/22/2019 10:20 AM CDT [facility] Physical Medicine and Rehabilitation Physical Therapy Initial Evaluation Note Patient: Jalil Luis Med Record Number: [id number] Date of : 1970 Age: [age] year old Discharge Recommendation: Patient should be able to return home when medically cleared by physicianteam. Therapy will continue to treat patient while in hospital. See current amount of assist neededbelow. Frequency: Patient to be scheduled 7x/week for restorative therapy and weekly check per PT. Patient currently using no assistive device. Nurse contacted regarding patient status and/or discharge plan. Physician Orders: Evaluation and Treat PRECAUTIONS: none Activity Level as tolerated DIAGNOSIS: Patient Active Problem List: DLBCL (diffuse large B cell lymphoma) B-cell lymphoma Lymphadenopathy History of marijuana use S/P splenectomy Asthma Past Medical History: Diagnosis Date ??? Diverticulosis ??? GERD (gastroesophageal reflux disease) taking prevacid prn ??? H/O echocardiogram 08/11/2019 ??? Lymphoma of lymph nodes ??? Multiple body piercings facial ??? Port-A-Cath in place right subclavian ??? Sleep apnea not using CPAP ??? Transient alteration of awareness 2018 during knee arthroplasty(single incident) SUBJECTIVE: I've been getting up PATIENT GOALS: To go home Home living: Type of Residence: Private Residence Steps to Enter: 2 Home Structure: One Story;Basement(lives in basement) Equipment At Home: None Prior Function: Mobility: Independent Fallen Within 6 Mos: No Have Help at Home?: Yes, there is help at home now Activity at Home: Active At start of therapy session, patient found in bed and with no alarm Pain: Patient has 0/10 pain Follow-up for pain: No follow-up for pain indicated and patient agreed to proceed with treatment OBJECTIVE: General Appearance: Adult male, in bed, NAD Precautions: Port Skin, Incisions, Edema: Nothing significant noted Other: Vitals: (*Assess the 3 levels of oxygen saturations both for room air and 02 unless rest on room air is 88% or less). Rest BP: HR: Sp02 Sp02 Room Air L O2 Ex/Gait/Activity Without 02 BP: HR: Sp02 Room Air Ex/Gait/Activity With 02 BP: HR: Sp02 L O2 Post Activity BP: HR: Sp02 Sp02 L O2 Room Air Observations: Pt has no reports dizziness/SOB with activity MENTAL STATUS: Alert and oriented times x3 DIRECTION FOLLOWING: Able to follow multi-step commands 100% ROM: HERBERT LEs WFL STRENGTH: HERBERT LEs WFL SENSATION:no reports numbness/tingling FUNCTIONAL MOBILITY Not Tested Not Applicable Independent Stand by Assist Minimal Moderate Maximum Dependent Rolling x Scooting x Supine to/from sit x Sit to/from Stand x Bed to/ chair x Observation: BALANCE: Sitting Static: good Dynamic: good Standing Static: good Dynamic: good Observation: GAIT: Weight Bearing: WBAT Distance: 300 feet Device: none Assistance: Independent Balance: good Steps: not assessed good endurance Observation: nothing significant noted ACTIVITY TOLERANCE: Patient's activity tolerance: good TREATMENT/INTERVENTIONS: evaluation EDUCATION: While performing PT, Patient was instructed in:Functional mobility training/weight bearing status, Safety awareness/fall precaution, Home exercise program and Discharge plan Patient demonstrated Good understanding of instructions given. INFORMED CONSENT TO TREATMENT: Plan of care including recommended therapy, goals and frequency, discussed with patient who understands and agrees to proceed. ASSESSMENT: Patient would benefit from additional Physical Therapy to achieve the following functional goals toenhance independence. Short Term Goals: Goal Formation With patient Patient will perform home exercise program independently Assistant Boys Track Coach Goal(s): Patient to be independent/baseline with functional mobility and self care and be able to safely discharge to prior level of care Equipment Issued: none Plan: If patient is discharged from the facility, this note serves as a discharge summary if further physical therapy visits did not occur. 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 INTERVAL HISTORY: Feels well over all Denies N/V/D/F/C Eats and drinks well Walks throughout the day Has throbbing frontal headache this am. Has very rarely. Oxy helps. No other s/s associaited with this Nasal passages seem dry when he blows it ROS: A comprehensive review of systems was negative except for: as noted above MEDICATIONS FOR CURRENT ENCOUNTER: SCHEDULED MEDICATIONS: 0.9% NaCl injection 10 mL, Intracatheter, q8h 0.9% NaCl IV Bolus, Intravenous, Once enoxaparin (LOVENOX) injection 120 mg, Subcutaneous, q12h escitalopram (LEXAPRO) tablet 10 mg, Oral, QDAY heparin lock flush injection 500 Units, Intravenous, BID levoFLOXacin (LEVAQUIN) tablet 500 mg, Oral, QDAY micafungin (MYCAMINE) 50 mg in 0.9% NaCl IVPB, Intravenous, q24h pantoprazole EC (PROTONIX) tablet 40 mg, Oral, QDAY rOPINIRole (REQUIP) tablet 0.25 mg, Oral, AT BEDTIME valACYclovir (VALTREX) tablet 500 mg, Oral, BID [COMPLETED] dexamethasone (DECADRON) tablet 8 mg, Oral, Once ?? [COMPLETED] OLANZapine (ZyPREXA) tablet 5 mg, Oral, AT BEDTIME ?? CONTINUOUS MEDICATIONS: PRN MEDICATIONS: 0.9% NaCl injection 10 mL, Intracatheter, PRN docusate sodium (COLACE) capsule 100 mg, Oral, BID PRN LORazepam (ATIVAN) tablet 0.5 mg, Oral, q8h PRN magnesium sulfate 2 g in 50 mL bolus, Intravenous, PRN ondansetron (disintegrating) (ZOFRAN ODT) tablet 4 mg, Sublingual, q6h PRN ondansetron (ZOFRAN) injection 4 mg, Intravenous, q6h PRN oxyCODONE (immediate release) (ROXICODONE) tablet 5 mg, Oral, q4h PRN polyethylene glycol 3350 (MIRALAX) packet 17 g, Oral, QDAY PRN potassium chloride 40 mEq in 0.9% NaCl 270 mL bolus, Intravenous, PRN prochlorperazine (COMPAZINE) tablet 5 mg, Oral, q4h PRN prochlorperazine (COMPAZINE) tablet 5 mg, Oral, q8h PRN ?? saline nasal spray (OCEAN; BABY AYR) 0.65 % nasal spray 1 spray, Each Nostril, q30 min PRN VITALS: Vitals: 10/21/19 1204 10/21/19 1733 10/21/19 2026 10/22/19 0431 BP: 154/93 128/82 138/91 Pulse: 109 83 85 Resp: 18 18 18 Temp: 98.5 ??F 98.6 ??F 98.3 ??F SpO2: 98% 97% 99% Weight: 123.3 kg (271 lb 12.8 oz) 121.5 kg (267 lb 12.8 oz) Height: Wt Readings from Last 3 Encounters: 10/22/19 121.5 kg (267 lb 12.8 oz) 10/13/19 120.7 kg (266 lb) 10/05/19 118.8 kg (261 lb 14.4 oz) Date 10/21/19 07 - 10/22/19 0659 10/22/19 07 - 10/23/19 0659 Shift 7183-6835 6915-3229 24 Hour Total 9778-6127 7662-8918 24 Hour Total INTAKE P.O. 1850 1000 2850 I.V.(mL/kg/hr) 99.4(0.1) 99.4(0) Shift Total(mL/kg) 1949.4(15.8) 1000(8.2) 2949.4(24.3) OUTPUT Urine(mL/kg/hr) 1350(0.9) 3350(2.3) 4700(1.6) Shift Total(mL/kg) 1350(11) 3350(27.6) 4700(38.7) NET 599.4 -2350 -1750.6 Weight (kg) 123.3 121.5 121.5 121.5 121.5 121.5 PHYSICAL EXAM: Physical Examination: General appearance - [...] no rashes, no suspicious skin lesions noted CVC - tunneled CVC w/ dressing dry, occlusive, & intact; site without erythema, drainage, or tenderness LABS: Recent Labs Component Name 10/22/19 0015 10/20/19 2359 10/20/19 0041 10/19/19 0021 10/17/19 2343 10/17/19 0020 WBC 2.4* 7.6 7.4 5.5 6.4 9.2 RBC 3.60* 3.42* 3.84* 3.63* 3.52* 3.38* HGB 10.4* 10.0* 11.2* 10.4* 10.2* 9.7* HCT 30.8* 29.2* 32.6* 31.3* 30.9* 29.9* MCV 85.6 85.4 84.9 86.2 87.8 88.5 MCH 28.9 29.2 29.2 28.7 29.0 28.7 MCHC 33.8 34.2 34.4 33.2 33.0 32.4 PLTCOUNT 169 204 272 295 321 312 RDWSD 49.4 49.2 48.2 49.9 50.8* 51.3* RDW 15.9* 15.7* 15.6* 15.7* 15.9* 15.9* MPV 10.7 10.5 10.9 10.3 10.9 10.2 NRBCABS 0.00 0.00 0.00 0.00 0.00 0.00 NRBCAUTOPCT 0.0 0.0 0.0 0.0 0.0 0.0 NEUTPCT - - - 96.5* 93.4* 90.0* LYMPHSPCT - - - 2.4* 3.9* 3.9* MONOPCT - - - 0.4* 2.2* 5.3 EOSPCT 4 1 - 0.0 0.0 0.0 BASOPCT - - - 0.0 0.0 0.0 IMMGRANSPCT - - - 0.7 0.5 0.8 NEUTABS 2.09 7.45* 7.25* 5.3 6.0 8.3* LYMPHS 0.22* 0.08* 0.15* 0.1* 0.3* 0.4* MONO - - - 0.02* 0.14 0.49 EOS 0.10 0.08 - 0.00 0.00 0.00 BASO - - - 0.00 0.00 0.00 TOTCELLCNT 100 100 100 - - - Recent Labs Component Name 10/22/19 0015 10/20/19 2359 10/20/19 0041 BUN 21 27* 25 CREATININE 0.9 1.0 0.9 NA 141 141 141 POTASSIUM 4.3 4.3 4.5 CL 105 105 101 CO2 27 27 30* CALCIUM 8.9 8.4 9.1 PROT 5.8* 5.3* 5.9* ALB 3.4 3.2* 3.5 TBILI 0.2 0.2 0.4 ALKPHOS 73 77 80 ALT 103* 122* 117* AST 23 50* 28 ANIONGAP 13 13 15 BCR 23 27* 28* OSMOLALITY 296 299 297 AGRATIO 1.4 1.5 1.5 EGFR >60 >60 >60 Recent Labs Component Name 10/22/19 0015 10/20/19 2359 10/20/19 0041 MAGNESIUM 2.1 2.2 2.2 Recent Labs Component Name 10/22/19 0015 10/20/19 2359 10/20/19 0041 PHOS 3.6 3.2 4.4 Routine Monitoring: CMV (weekly starting day 0): 10/20/19 - RADIOGRAPHY: ASSESSMENT/PLAN: JALIL LUIS is a 49 year old male, who is Day +2 (Day 0 is 10/20/19) of an autologous peripheral blood stem cell transplant with a 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 SYSTEMS: Marginal Zone Lymphoma in CR2 pre-transplant Schema: 5A Prep: BEAM, Cell count 10.4 x 10^6 CD34+cells/kg in 5 bags; Expected pancytopenia with transplant: CMV +, transfusion pre meds: none needed Transfusion threshold: Hgb > 7 (changing parameters against our policy to try to preserve blood transfusions during the current pandemic COVID19), Plt > 10 Engraftment: pending, will start granix on day +5 OI prophylaxis: Bacterial:?? levaquin 500 mg daily Fungal:??Micafungin 50mg QD PJP:??Bactrim DS MWF resume upon engraftment Viral: Valtrex 500 mg BID Increased LFTs -Change Fluconazole to Micafungin (10/19/19) Headaches -[place] Nasal [place] PRN -Oxy PRN Right IJ venous clot 09/27/19 -clot in right IJ that goes into the proximal subclavian vein -switched to lovenox 1mg/kg BID -Plan to decrease to ppx lovenox when plts <30. Can hold anticoagulation while plts <30 Pertinent PMH: Anxiety/Depression-lexapro 10 mg daily Arthritis-on diclofenac BID at home, will stop with admission and use oxycodone PRN 08/17/19-S/P Splenectomy-laparoscopic splenectomy >IVIG given 08/18/19 after splenectomy Restless Leg Syndrome--flares when off diclofenac. Currently on Requip Discharge Planning: Patients preferred contact information: cell Caregiver: sister, girlfriend Preferred D/C Pharmacy: [facility] Intended lodging: home Referring provider: Cesar Tavares F/U post transplant: Planned disease evaluation: day [address], will discuss if needs bone marrow as well. Planned post transplant therapy: none planned at this time -maintain on PCN VK vs Levaquin post-splenectomy until he can be re-vaccinated and adequate titers demonstrated Disposition: Remain on 8N Vanejaved Romero BINDERY CUTTER OPERATOR, ENVIRONMENTAL ECONOMIST-C [facility] Blood Marrow and Transplant Associated attestation - Tony Dumont MD - 10/22/2019 8:14 PM CDT I independently interviewed and examined Jalil Luis with the BMT advanced practice provider. I reviewed my findings and assessment with the advanced practice provider and the patient. I reviewed the below note. Please see note for full detail. * Jocelin Griggs, JHON/DAE - 10/21/2019 11:45 AM CDT Nutrition Re-Assessment Nutrition Recommendations: Continue current diet Snacks and supplements from nourishment room Comments: Pt seen for f/u. POD 1 BMT tx. Reports a good appetite, intakes are adequate. No GI issues. Last BM 10/20. No further questions related to diet. RD will continue to monitor. Assessment: Med/Surg History and Clinical Diagnoses: Diffuse large B cell lymphoma; PMH: sleep apnea, GERD, diverticulosis Diet order accuracy Current diet order: Regular Nutrition recommendation: agree with current nutrition order P.O.Intake for the past 48 hrs:% Meal Taken Av % Min: 75 % Max: 100 % Food Allergies: No known food allergies GI Concerns: None Chewing/Swallowing: None Pain affecting intake: No Admission weight: Weight: 272 lb 1.6 oz (123.4 kg) (10/13/19 1513) Filed Wts: 10/19/19 1400 10/20/19 0037 10/20/19 1538 10/21/19 0448 Weight: 273 lb 6.4 oz (124 kg) 270 lb (122.5 kg) 271 lb (122.9 kg) 269 lb 12.8 oz (122.4 kg) Wt Comments: Height: 5' 7.5 (171.5 cm) IBW/lb (Calculated) Male: 89 , Laboratory values reviewed. Medications noted. Skin/Wound: WNL Estimated Energy Needs: KCAL: 6911-4321(30-35 kcal/kg IBW) Protein (g): 95-109(1.4-1.6 g/kg IBW) Fluid (ml): 1 ml/kcal Needs based on: Kcal/kg- (Comment) Recommended Access Route: PO Education needed: None Nutrition Care Process (1) Nutrition Diagnostic Statement: Increased nutrient needs related to:: cancer as evidenced by:: estimated energy needs ..;estimated protein needs .. Nutrition Diagnostic Statement Progress: Nutrition problem continues Nutrition Intervention: Meals and snacks: Monitoring: PO intake, nutrition labs, wt, BM's, I's&O's Evaluation: Nutrition Goal: Total intake will meet estimated nutrient needs Nutrition Goal Timeframe: Throughout stay Nutrition Goal Progress: Continue with current goal Jocelin Griggs RD/DAE * Shalini Segal MD - 10/21/2019 7:34 AM CDT Autologous Hematopoietic Stem Cell Daily Note: PATIENT IDENTIFIERS: JALIL LUIS is a 49 year old male who is Day +1 (Day 0 is 10/20/19) of an autologous peripheralblood stem cell transplant with a 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 INTERVAL HISTORY: Denies N/V/D/F/C Eats and drinks ok, decreased over all Already up and ambulating this am BMs are soft served ice cream consistency Educated on counts and TESTING SHAKING SHIPPING ROS: A comprehensive review of systems was negative except for: as noted above MEDICATIONS FOR CURRENT ENCOUNTER: SCHEDULED MEDICATIONS: 0.9% NaCl injection 10 mL, Intracatheter, q8h dexamethasone (DECADRON) tablet 8 mg, Oral, Once enoxaparin (LOVENOX) injection 120 mg, Subcutaneous, q12h escitalopram (LEXAPRO) tablet 10 mg, Oral, QDAY heparin lock flush injection 500 Units, Intravenous, BID levoFLOXacin (LEVAQUIN) tablet 500 mg, Oral, QDAY micafungin (MYCAMINE) 50 mg in 0.9% NaCl IVPB, Intravenous, q24h OLANZapine (ZyPREXA) tablet 5 mg, Oral, AT BEDTIME pantoprazole EC (PROTONIX) tablet 40 mg, Oral, QDAY rOPINIRole (REQUIP) tablet 0.25 mg, Oral, AT BEDTIME valACYclovir (VALTREX) tablet 500 mg, Oral, BID [COMPLETED] 0.9% NaCl IV Bolus, Intravenous, Once [COMPLETED] 0.9% NaCl IV Bolus, Intravenous, Once [COMPLETED] acetaminophen (TYLENOL) tablet 650 mg, Oral, Once [COMPLETED] dexamethasone (DECADRON) tablet 8 mg, Oral, Once [COMPLETED] diphenhydrAMINE (BENADRYL) injection 25 mg, Intravenous, Once [COMPLETED] penicillin v potassium (VEETIDS) tablet 250 mg, Oral, BID ?? [] 0.9% NaCl IV Bolus, Intravenous, Once ?? CONTINUOUS MEDICATIONS: PRN MEDICATIONS: 0.9% NaCl injection 10 mL, Intracatheter, PRN docusate sodium (COLACE) capsule 100 mg, Oral, BID PRN LORazepam (ATIVAN) tablet 0.5 mg, Oral, q8h PRN magnesium sulfate 2 g in 50 mL bolus, Intravenous, PRN ondansetron (disintegrating) (ZOFRAN ODT) tablet 4 mg, Sublingual, q6h PRN ondansetron (ZOFRAN) injection 4 mg, Intravenous, q6h PRN oxyCODONE (immediate release) (ROXICODONE) tablet 5 mg, Oral, q4h PRN polyethylene glycol 3350 (MIRALAX) packet 17 g, Oral, QDAY PRN potassium chloride 40 mEq in 0.9% NaCl 270 mL bolus, Intravenous, PRN prochlorperazine (COMPAZINE) tablet 5 mg, Oral, q4h PRN ?? prochlorperazine (COMPAZINE) tablet 5 mg, Oral, q8h PRN VITALS: Vitals: 10/20/19 1218 10/20/19 1231 10/20/19 1538 10/21/19 0448 BP: 133/81 134/84 126/77 130/88 Pulse: 84 81 81 81 Resp: 18 17 Temp: 97.8 ??F 98.9 ??F 98.3 ??F SpO2: 98% 97% 97% 98% Weight: 122.9 kg (271 lb) 122.4 kg (269 lb 12.8 oz) Height: Wt Readings from Last 3 Encounters: 10/21/19 122.4 kg (269 lb 12.8 oz) 10/13/19 120.7 kg (266 lb) 10/05/19 118.8 kg (261 lb 14.4 oz) Date 10/20/19 07 - 10/21/19 0659 10/21/19 07 - 10/22/19 0659 Shift 9991-7630 1323-6266 24 Hour Total 8464-8013 1251-6640 24 Hour Total INTAKE P.O. 1900 1350 3250 400 400 I.V.(mL/kg/hr) 585.4(0.4) 585.4(0.2) Blood Products 350 350 Shift Total(mL/kg) 2835.4(23.1) 1350(11) 4185.4(34.2) 400(3.3) 400(3.3) OUTPUT Urine(mL/kg/hr) 2300(1.6) 2050(1.4) 4350(1.5) Shift Total(mL/kg) 2300(18.7) 2050(16.8) 4350(35.5) NET 535.4 -700 -164.6 400 400 Weight (kg) 122.9 122.4 122.4 122.4 122.4 122.4 PHYSICAL EXAM: Physical Examination: General appearance - [...] no rashes, no suspicious skin lesions noted CVC - tunneled CVC w/ dressing dry, occlusive, & intact; site without erythema, drainage, or tenderness LABS: Recent Labs Component Name 10/20/19 2359 10/20/19 0041 10/19/19 0021 10/17/19 2343 10/17/19 0020 WBC 7.6 7.4 5.5 6.4 9.2 RBC 3.42* 3.84* 3.63* 3.52* 3.38* HGB 10.0* 11.2* 10.4* 10.2* 9.7* HCT 29.2* 32.6* 31.3* 30.9* 29.9* MCV 85.4 84.9 86.2 87.8 88.5 MCH 29.2 29.2 28.7 29.0 28.7 MCHC 34.2 34.4 33.2 33.0 32.4 PLTCOUNT 204 272 295 321 312 RDWSD 49.2 48.2 49.9 50.8* 51.3* RDW 15.7* 15.6* 15.7* 15.9* 15.9* MPV 10.5 10.9 10.3 10.9 10.2 NRBCABS 0.00 0.00 0.00 0.00 0.00 NRBCAUTOPCT 0.0 0.0 0.0 0.0 0.0 NEUTPCT - - 96.5* 93.4* 90.0* LYMPHSPCT - - 2.4* 3.9* 3.9* MONOPCT - - 0.4* 2.2* 5.3 EOSPCT 1 - 0.0 0.0 0.0 BASOPCT - - 0.0 0.0 0.0 IMMGRANSPCT - - 0.7 0.5 0.8 NEUTABS 7.45* 7.25* 5.3 6.0 8.3* LYMPHS 0.08* 0.15* 0.1* 0.3* 0.4* MONO - - 0.02* 0.14 0.49 EOS 0.08 - 0.00 0.00 0.00 BASO - - 0.00 0.00 0.00 TOTCELLCNT 100 100 - - - Recent Labs Component Name 10/20/19 2359 10/20/19 0041 10/19/19 0021 BUN 27* 25 21 CREATININE 1.0 0.9 0.8 NA 141 141 140 POTASSIUM 4.3 4.5 4.4 CL 105 101 102 CO2 27 30* 28 CALCIUM 8.4 9.1 9.3 PROT 5.3* 5.9* 5.7* ALB 3.2* 3.5 3.5 TBILI 0.2 0.4 0.2 ALKPHOS 77 80 82 ALT 122* 117* 137* AST 50* 28 56* ANIONGAP 13 15 14 BCR 27* 28* 26* OSMOLALITY 299 297 294 AGRATIO 1.5 1.5 1.6 EGFR >60 >60 >60 Recent Labs Component Name 10/20/19 2359 10/20/19 0041 10/19/19 0021 MAGNESIUM 2.2 2.2 2.1 Recent Labs Component Name 10/20/19 2359 10/20/19 0041 10/19/19 0021 PHOS 3.2 4.4 3.3 Routine Monitoring: CMV (weekly starting day 0): 10/20/19 - pending RADIOGRAPHY: ASSESSMENT/PLAN: JALIL LUIS is a 49 year old male, who is Day +1 (Day 0 is 10/20/19) of an autologous peripheral blood stem cell transplant with a 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 SYSTEMS: Marginal Zone Lymphoma in CR2 pre-transplant Schema: 5A Prep: BEAM, Cell count 10.4 x 10^6 CD34+cells/kg in 5 bags; Expected pancytopenia with transplant: CMV +, transfusion pre meds: none needed Transfusion threshold: Hgb > 7 (changing parameters against our policy to try to preserve blood transfusions during the current pandemic COVID19), Plt > 10 Engraftment: pending, will start granix on day +5 OI prophylaxis: Bacterial:?? levaquin 500 mg daily Fungal:??Micafungin 50mg QD PJP:??Bactrim DS MWF resume upon engraftment Viral: Valtrex 500 mg BID Increased LFT's 10/21/19: stable, follow daily -Change Fluconazole to Micafungin (10/19/19) Right IJ venous clot 09/27/19 -clot in right IJ that goes into the proximal subclavian vein -switched to lovenox 1mg/kg BID -Plan to decrease to ppx lovenox when plts <30. Can hold anticoagulation while plts <30 Pertinent PMH: Anxiety/Depression-lexapro 10 mg daily Arthritis-on diclofenac BID at home, will stop with admission and use oxycodone PRN 08/17/19-S/P Splenectomy-laparoscopic splenectomy >IVIG given 08/18/19 after splenectomy Restless Leg Syndrome--flares when off diclofenac. Currently on Requip Discharge Planning: Patients preferred contact information: cell Caregiver: sister, girlfriend Preferred D/C Pharmacy: [facility] Intended lodging: home Referring provider: Cesar Tavares F/U post transplant: Planned disease evaluation: day [address], will discuss if needs bone marrow as well. Planned post transplant therapy: none planned at this time -maintain on PCN VK vs Levaquin post-splenectomy until he can be re-vaccinated and adequate titers demonstrated Disposition: Remain on 8N Vane Romero BINDERY CUTTER OPERATOR, ENVIRONMENTAL ECONOMIST-C [facility] Blood Marrow and Transplant I personally reviewed Mr. Jalil Luis . I also discussed the assessment and plan in detail with the team on rounds . I made some modifications to the above note. I fully concur with the above assessment and plan. Ezio Segal MD Thermostat Mechanic Department of Internal Medicine Division of Hematology Oncology * Sharon Bragg - 10/20/2019 3:24 PM CDT Cement Conveyor Operator met patient at nurses' station and visited. Patient indicated his fiance' will be bringinghim dinner tonight, other family not visiting at this time with restrictions. Patient is active member of [employer] in [place]. Paper Wrapping Machine Operator called while patient was visiting and prayed with him. Per patient, administrative staff supervisor calls every day. Patient received stem cell transplant today and hopes to be able to go home to [place] at the end of next week. Patient is aware pastoral care is available as needed and assured of prayer support. [phone] * Rose Shay - 10/20/2019 12:24 PM CDT SW on the floor, spoke with RN Keena, she provided update. At this time, there are no needs for SW to address. MICHI Gómez ICU Care Coordination Bench Machine Operator * Shalini Segal MD - 10/20/2019 7:17 AM CDT Autologous Hematopoietic Stem Cell Daily Note: PATIENT IDENTIFIERS: JALIL LUIS is a 49 year old male who is Day 0 (Day 0 is 10/20/19) of an autologous peripheral blood stem cell transplant with a 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 INTERVAL HISTORY: Denies N/V/F/C/D Reports stable bowel and bladder Denies flank/back pain this morning Eating and drinking well Weight down, responded well to lasix yesterday, net neg by 3.1L Transplant today at 1030, 5 bags Explained process/side effects and answered questions Staying active, up and walking daily ROS: A comprehensive review of systems was negative except for: as noted above MEDICATIONS FOR CURRENT ENCOUNTER: SCHEDULED MEDICATIONS: 0.9% NaCl injection 10 mL, Intracatheter, q8h 0.9% NaCl IV Bolus, Intravenous, Once 0.9% NaCl IV Bolus, Intravenous, Once 0.9% NaCl IV Bolus, Intravenous, Once acetaminophen (TYLENOL) tablet 650 mg, Oral, Once dexamethasone (DECADRON) tablet 8 mg, Oral, Once diphenhydrAMINE (BENADRYL) injection 25 mg, Intravenous, Once enoxaparin (LOVENOX) injection 120 mg, Subcutaneous, q12h escitalopram (LEXAPRO) tablet 10 mg, Oral, QDAY heparin lock flush injection 500 Units, Intravenous, BID micafungin (MYCAMINE) 50 mg in 0.9% NaCl IVPB, Intravenous, q24h OLANZapine (ZyPREXA) tablet 5 mg, Oral, AT BEDTIME pantoprazole EC (PROTONIX) tablet 40 mg, Oral, QDAY penicillin v potassium (VEETIDS) tablet 250 mg, Oral, BID rOPINIRole (REQUIP) tablet 0.25 mg, Oral, AT BEDTIME valACYclovir (VALTREX) tablet 500 mg, Oral, BID ?? [START ON 10/21/2019] levoFLOXacin (LEVAQUIN) tablet 500 mg, Oral, QDAY ?? CONTINUOUS MEDICATIONS: PRN MEDICATIONS: 0.9% NaCl injection 10 mL, Intracatheter, PRN 0.9% NaCl IV Bolus, Intravenous, PRN ACD FORMULA A injection 5 mL, Other, PRN atropine injection 0.5 mg, Intravenous, PRN docusate sodium (COLACE) capsule 100 mg, Oral, BID PRN LORazepam (ATIVAN) tablet 0.5 mg, Oral, q8h PRN magnesium sulfate 2 g in 50 mL bolus, Intravenous, PRN ondansetron (disintegrating) (ZOFRAN ODT) tablet 4 mg, Sublingual, q6h PRN ondansetron (ZOFRAN) injection 4 mg, Intravenous, q6h PRN oxyCODONE (immediate release) (ROXICODONE) tablet 5 mg, Oral, q4h PRN polyethylene glycol 3350 (MIRALAX) packet 17 g, Oral, QDAY PRN potassium chloride 40 mEq in 0.9% NaCl 270 mL bolus, Intravenous, PRN prochlorperazine (COMPAZINE) tablet 5 mg, Oral, q4h PRN ?? prochlorperazine (COMPAZINE) tablet 5 mg, Oral, q8h PRN VITALS: Vitals: 10/19/19 1400 10/19/19 2047 10/20/19 0037 10/20/19 0643 BP: 133/87 128/73 Pulse: 84 75 Resp: 18 Temp: 98.2 ??F 97.9 ??F SpO2: 96% 100% Weight: 124 kg (273 lb 6.4 oz) 122.5 kg (270 lb) Height: Wt Readings from Last 3 Encounters: 10/20/19 122.5 kg (270 lb) 10/13/19 120.7 kg (266 lb) 10/05/19 118.8 kg (261 lb 14.4 oz) Date 10/19/19 07 - 10/20/19 0659 10/20/19 0700 - 10/21/19 0659 Shift 5468-9210 2812-3000 24 Hour Total 6740-1286 7763-5064 24 Hour Total INTAKE P.O. 2710 300 3010 Shift Total(mL/kg) 2710(21.9) 300(2.4) 3010(24.6) OUTPUT Urine(mL/kg/hr) 2000(1.3) 4200(2.9) 6200(2.1) Shift Total(mL/kg) 2000(16.1) 4200(34.3) 6200(50.6) NET 710 -9346 -3194 Weight (kg) 124 122.5 122.5 122.5 122.5 122.5 PHYSICAL EXAM: General appearance - alert, well appearing, and in no distress and acyanotic, in no respiratory distress Mental status - [...] tenderness noted Extremities - peripheral pulses normal, trace pedal edema, no clubbing or cyanosis Skin - normal coloration and turgor, no rashes, no suspicious skin lesions noted CVC - tunneled CVC w/ dressing dry, occlusive, & intact; site without erythema, drainage, or tenderness LABS: Recent Labs Component Name 10/20/19 0041 10/19/19 0021 10/17/19 2343 10/17/19 0020 WBC 7.4 5.5 6.4 9.2 RBC 3.84* 3.63* 3.52* 3.38* HGB 11.2* 10.4* 10.2* 9.7* HCT 32.6* 31.3* 30.9* 29.9* MCV 84.9 86.2 87.8 88.5 MCH 29.2 28.7 29.0 28.7 MCHC 34.4 33.2 33.0 32.4 PLTCOUNT 272 295 321 312 RDWSD 48.2 49.9 50.8* 51.3* RDW 15.6* 15.7* 15.9* 15.9* MPV 10.9 10.3 10.9 10.2 NRBCABS 0.00 0.00 0.00 0.00 NRBCAUTOPCT 0.0 0.0 0.0 0.0 NEUTPCT - 96.5* 93.4* 90.0* LYMPHSPCT - 2.4* 3.9* 3.9* MONOPCT - 0.4* 2.2* 5.3 EOSPCT - 0.0 0.0 0.0 BASOPCT - 0.0 0.0 0.0 IMMGRANSPCT - 0.7 0.5 0.8 NEUTABS 7.25* 5.3 6.0 8.3* LYMPHS 0.15* 0.1* 0.3* 0.4* MONO - 0.02* 0.14 0.49 EOS - 0.00 0.00 0.00 BASO - 0.00 0.00 0.00 TOTCELLCNT 100 - - - Recent Labs Component Name 10/20/194010/19/192010/17/19 2343 BUN 25 21 20 CREATININE 0.9 0.8 0.8 NA 141 140 143 POTASSIUM 4.5 4.4 4.1 CL 101 102 107 CO2 30* 28 24 CALCIUM 9.1 9.3 9.1 PROT 5.9* 5.7* 5.7* ALB 3.5 3.5 3.5 TBILI 0.4 0.2 0.3 ALKPHOS 80 82 86 ALT 117* 137* 76* AST 28 56* 25 ANIONGAP 15 14 16 BCR 28* 26* 25* OSMOLALITY 297 294 300 AGRATIO 1.5 1.6 1.6 EGFR >60 >60 >60 Recent Labs Component Name 10/20/194010/19/19 00210/17/19 2343 MAGNESIUM 2.2 2.1 1.9 Recent Labs Component Name 10/20/194010/19/19 00210/17/19 2343 PHOS 4.4 3.3 2.9 Routine Monitoring: CMV (weekly starting day 0): 10/20/19 - pending RADIOGRAPHY: ASSESSMENT/PLAN: JALIL LUIS is a 49 year old male, who is Day 0 (Day 0 is 10/20/19) of an autologous peripheralblood stem cell transplant with a 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 SYSTEMS: Marginal Zone Lymphoma in CR2 pre-transplant Schema: 5A Prep: BEAM, Cell count 10.4 x 10^6 CD34+cells/kg in 5 bags; Expected pancytopenia with transplant: CMV +, transfusion pre meds: none needed Transfusion threshold: Hgb > 7 (changing parameters against our policy to try to preserve blood transfusions during the current pandemic COVID19), Plt > 10 Engraftment: pending, will start granix on day +5 OI prophylaxis: Bacterial:??PCN VK 250 mg BID until Levaquin starts; levaquin 500 mg daily starting on day +1 Fungal:??Fluconazole changed to Micafungin 50mg d/t increased LFTs PJP:??Bactrim DS MWF resume upon engraftment Viral: Valtrex 500 mg BID Increased LFTs -Continue to monitor daily with labs -Change Fluconazole to Micafungin (10/19/19) Fluid volume excess -significantly improved with lasix; no more Lasix today (10/19) -fluids have been stopped -continue to monitor weight LFT Elevation -changed Fluc to Elda 10/18 -LFTs better today (10/19) Right IJ venous clot 09/27/19 -clot in right IJ that goes into the proximal subclavian vein -switched to lovenox 1mg/kg BID -Plan to decrease to ppx lovenox when plts <30. Can hold anticoagulation while plts <30 Pertinent PMH: Anxiety/Depression-lexapro 10 mg daily Arthritis-on diclofenac BID at home, will stop with admission and use oxycodone PRN 08/17/19-S/P Splenectomy-laparoscopic splenectomy >IVIG given 08/18/19 after splenectomy Restless Leg Syndrome--flares when off diclofenac. Currently on Requip Discharge Planning: Patients preferred contact information: cell Caregiver: sister, girlfriend Preferred D/C Pharmacy: [facility] Intended lodging: home Referring provider: Cesar Chaitanya F/U post transplant: Planned disease evaluation: day [address], will discuss if needs bone marrow as well. Planned post transplant therapy: none planned at this time -maintain on PCN VK vs Levaquin post-splenectomy until he can be re-vaccinated and adequate titers demonstrated Disposition: Remain on 8N pending count recovery and resolution of any TESTING SHAKING SHIPPING Asim Ramirez APRN, ENVIRONMENTAL ECONOMIST-C [facility] Blood Marrow and Transplant Pager: [phone] I personally evaluated and examined Mr. Jalil Luis. I confirmed the alfonso elements of of history and physical examination. I also discussed the assessment and plan in detail with the team on rounds and with the patient. I made some modifications to the above note. I fully concur with the above assessment and plan. Ezio Segal MD Thermostat Mechanic Department of Internal Medicine Division of Hematology Oncology * Shalini Segal MD - 10/19/2019 7:18 AM CDT Autologous Hematopoietic Stem Cell Daily Note: PATIENT IDENTIFIERS: JALIL LUIS is a 49 year old old year old male who is Day -1 (Day 0 is 10/20/19) of an autologous peripheral blood stem cell transplant with a primary malignant disease diagnosis of marginal zonelymphoma. INTERVAL HISTORY: - Aurelio is feeling good this morning - Was able to sleep well - Denies F/C/N/V/D - Reports stools are still soft like ice cream - Significant urine output from lasix yesterday -weight is back near baseline and IVF stopped afterMelphalan yesterday - Swelling he felt in arms and legs has resolved - Appetite slightly decreased but continues to eat something at each meal and drink well - Doing activity in the hallways ROS: A comprehensive review of systems was negative except for: as noted above MEDICATIONS FOR CURRENT ENCOUNTER: SCHEDULED MEDICATIONS: 0.9% NaCl injection 10 mL, Intracatheter, q8h enoxaparin (LOVENOX) injection 120 mg, Subcutaneous, q12h escitalopram (LEXAPRO) tablet 10 mg, Oral, QDAY heparin lock flush injection 500 Units, Intravenous, BID OLANZapine (ZyPREXA) tablet 5 mg, Oral, AT BEDTIME pantoprazole EC (PROTONIX) tablet 40 mg, Oral, QDAY penicillin v potassium (VEETIDS) tablet 250 mg, Oral, BID rOPINIRole (REQUIP) tablet 0.25 mg, Oral, AT BEDTIME valACYclovir (VALTREX) tablet 500 mg, Oral, BID [COMPLETED] dexamethasone (DECADRON) tablet 8 mg, Oral, Once [COMPLETED] melphalan (ALKERAN) 280 mg in 0.9% NaCl 622.2222 mL infusion, Intravenous, Once [START ON 10/20/2019] micafungin (MYCAMINE) 50 mg in 0.9% NaCl IVPB, Intravenous, q24h ?? [START ON 10/21/2019] levoFLOXacin (LEVAQUIN) tablet 500 mg, Oral, QDAY ?? CONTINUOUS MEDICATIONS: PRN MEDICATIONS: 0.9% NaCl injection 10 mL, Intracatheter, PRN docusate sodium (COLACE) capsule 100 mg, Oral, BID PRN LORazepam (ATIVAN) tablet 0.5 mg, Oral, q8h PRN magnesium sulfate 2 g in 50 mL bolus, Intravenous, PRN ondansetron (disintegrating) (ZOFRAN ODT) tablet 4 mg, Sublingual, q6h PRN ondansetron (ZOFRAN) injection 4 mg, Intravenous, q6h PRN oxyCODONE (immediate release) (ROXICODONE) tablet 5 mg, Oral, q4h PRN polyethylene glycol 3350 (MIRALAX) packet 17 g, Oral, QDAY PRN potassium chloride 40 mEq in 0.9% NaCl 270 mL bolus, Intravenous, PRN prochlorperazine (COMPAZINE) tablet 5 mg, Oral, q4h PRN ?? prochlorperazine (COMPAZINE) tablet 5 mg, Oral, q8h PRN VITALS: Vitals: 10/18/19 1212 10/18/19 1517 10/18/19 1959 10/19/19 0458 BP: 144/96 139/86 136/87 Pulse: 67 86 75 Resp: Temp: 97.4 ??F 98 ??F 98.7 ??F SpO2: 98% 98% 98% Weight: 126.1 kg (278 lb) 124.2 kg (273 lb 12.8 oz) Height: Wt Readings from Last 3 Encounters: 10/19/19 124.2 kg (273 lb 12.8 oz) 10/13/19 120.7 kg (266 lb) 10/05/19 118.8 kg (261 lb 14.4 oz) Date 10/18/19 0700 - 10/19/19 0659 10/19/19 0700 - 10/20/19 0659 Shift 3400-1650 9674-4533 24 Hour Total 8526-1918 0947-2204 24 Hour Total INTAKE P.O. 3913 1040 4953 I.V.(mL/kg/hr) 1720.6(1.1) 1720.6(0.6) Shift Total(mL/kg) 5633.6(44.7) 1040(8.4) 6673.6(53.7) OUTPUT Urine(mL/kg/hr) 5775(3.8) 3350(2.2) 9125(3.1) Shift Total(mL/kg) 5775(45.8) 3350(27) 9125(73.5) NET -141.4 -2310 -2451.4 Weight (kg) 126.1 124.2 124.2 124.2 124.2 124.2 PHYSICAL EXAM: General appearance - alert, well [...] no rashes, no suspicious skin lesions noted CVC - dressing dry and intact without redness, swelling or stated tenderness LABS: Recent Labs Component Name 10/19/19 0021 10/17/19 2343 10/17/19 0020 09/21/19 1413 WBC 5.5 6.4 9.2 - 66.1* RBC 3.63* 3.52* 3.38* - 3.65* HGB 10.4* 10.2* 9.7* - 11.0* HCT 31.3* 30.9* 29.9* - 32.7* MCV 86.2 87.8 88.5 - 89.6 MCH 28.7 29.0 28.7 - 30.1 MCHC 33.2 33.0 32.4 - 33.6 PLTCOUNT 295 321 312 - 135* RDWSD 49.9 50.8* 51.3* - 49.0 RDW 15.7* 15.9* 15.9* - 14.8 MPV 10.3 10.9 10.2 - 9.3 NRBCABS 0.00 0.00 0.00 - 0.12* NRBCAUTOPCT 0.0 0.0 0.0 - 0.2* NEUTPCT 96.5* 93.4* 90.0* - - LYMPHSPCT 2.4* 3.9* 3.9* - - MONOPCT 0.4* 2.2* 5.3 - - EOSPCT 0.0 0.0 0.0 - 5 BASOPCT 0.0 0.0 0.0 - - IMMGRANSPCT 0.7 0.5 0.8 - - NEUTABS 5.3 6.0 8.3* - 56.19* LYMPHS 0.1* 0.3* 0.4* - 0.66* MONO 0.02* 0.14 0.49 - 4.63* EOS 0.00 0.00 0.00 - 3.31* BASO 0.00 0.00 0.00 - - TOTCELLCNT - - - - 100 - = values in this interval not displayed. Recent Labs Component Name 10/19/19 0021 10/17/19 2343 10/17/19 0020 BUN 21 20 19 CREATININE 0.8 0.8 0.8 NA 140 143 143 POTASSIUM 4.4 4.1 4.0 CL 102 107 109* CO2 28 24 26 CALCIUM 9.3 9.1 8.3* PROT 5.7* 5.7* 5.1* ALB 3.5 3.5 3.1* TBILI 0.2 0.3 0.3 ALKPHOS 82 86 83 ALT 137* 76* 70* AST 56* 25 29 ANIONGAP 14 16 12 BCR 26* 25* 24* OSMOLALITY 294 300 300 AGRATIO 1.6 1.6 1.6 EGFR >60 >60 >60 Recent Labs Component Name 10/19/19 0021 10/17/19 2343 10/17/19 0020 MAGNESIUM 2.1 1.9 1.9 Recent Labs Component Name 10/19/19 0021 10/17/19 2343 10/17/19 0020 PHOS 3.3 2.9 2.6 Routine Monitoring: CMV (weekly starting day 0): 10/20/19 RADIOGRAPHY: ASSESSMENT/PLAN: JALIL LUIS is a 49 year old year old year old male, who is Day -1 (Day 0 is 10/20/19) of an autologous peripheral blood stem cell transplant with a 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 SYSTEMS: Marginal Zone Lymphoma in CR2 pre-transplant Schema: 5A Prep: BEAM, Cell count 10.4 x 10^6 CD34+cells/kg in 5 bags; Expected pancytopenia with transplant: CMV +, transfusion pre meds: none needed Transfusion threshold: Hgb > 7 (changing parameters against our policy to try to preserve blood transfusions during the current pandemic COVID19), Plt > 10 Engraftment: pending, will start granix on day +5 OI prophylaxis: Bacterial:??PCN VK 250 mg BID until levaquin starts; levaquin 500 mg daily starting on day +1 Fungal:??Fluconazole changed to Micafungin 50mg d/t increased LFTs PJP:??Bactrim DS MWF resume upon engraftment Viral: Valtrex 500 mg BID Increased LFTs - Continue to monitor daily with labs - Change Fluconazole to Micafungin (10/19/19) Fluid volume excess - significantly improved with lasix - fluids have been stopped - continue to monitor weight Right IJ venous clot 09/27/19 - clot in right IJ that goes into the proximal subclavian vein - switched to lovenox 1mg/kg BID - Plan to decrease to ppx lovenox when plts <30. Can hold anticoagulation while plts <30 Pertinent PMH: Anxiety/Depression-lexapro 10 mg daily Arthritis-on diclofenac BID at home, will stop with admission and use oxycodone PRN 08/17/19-S/P Splenectomy-laparoscopic splenectomy >IVIG given 08/18/19 after splenectomy Restless Leg Syndrome--flares when off diclofenac. Currently on Requip Discharge Planning: Patients preferred contact information: cell Caregiver: sister, girlfriend [facility] Intended lodging: home Referring provider: Cesar Tavares F/U post transplant: Planned disease evaluation: day [address], will discuss if needs bone marrow as well. Planned post transplant therapy: none planned at this time -maintain on PCN VK vs Levaquin post-splenectomy until he can be re-vaccinated and adequate titers demonstrated Disposition: Remain on 8N through chemo/camilo and until recovery of blood counts and TESTING SHAKING SHIPPING Katia Roque, [facility]- Bone Marrow Transplant Clinic [facility] I personally evaluated and examined Mr. Jalil Luis. I confirmed the alfonso elements of of history and physical examination. I also discussed the assessment and plan in detail with the team on rounds and with the patient. I made some modifications to the above note. I fully concur with the above assessment and plan. Ezio Segal MD Thermostat Mechanic Department of Internal Medicine Division of Hematology Oncology * Shalini Segal MD - 10/18/2019 7:23 AM CDT Autologous Hematopoietic Stem Cell Daily Note: PATIENT IDENTIFIERS: JALIL LUIS is a 49 year old old year old male who is Day -2 (Day 0 is 10/20/19) of an autologous peripheral blood stem cell transplant with a primary malignant disease diagnosis of marginal zonelymphoma. INTERVAL HISTORY: - Patient is feeling well this morning - awake and playing video games - Last evening felt more SOB and weight was up a significant amount - seemed to improve with lasix and weight dropping - Continues to feel like retaining fluid in legs and arms - Will give additional lasix this morning and then stop fluids 4 hours after Melphalan. - Denies F/C/N/V/D - Feels appetite has decreased some but continues to eat something for each meal with occasional snack - Drinking well - Stools are like soft serve ice cream - no water - Continues to walk and move around - discussed today not leaving the floor d/t infection risk in the coming days - verbalizes understanding ROS: A comprehensive review of systems was negative except for: as noted above MEDICATIONS FOR CURRENT ENCOUNTER: SCHEDULED MEDICATIONS: 0.9% NaCl injection 10 mL, Intracatheter, q8h dexamethasone (DECADRON) tablet 8 mg, Oral, Once enoxaparin (LOVENOX) injection 120 mg, Subcutaneous, q12h escitalopram (LEXAPRO) tablet 10 mg, Oral, QDAY fluconazole (DIFLUCAN) tablet 400 mg, Oral, QDAY fosaprepitant (EMEND) 150 mg in 0.9% NaCl 250 mL IVPB, Intravenous, Once heparin lock flush injection 500 Units, Intravenous, BID melphalan (ALKERAN) 280 mg in 0.9% NaCl 622.2222 mL infusion, Intravenous, Once OLANZapine (ZyPREXA) tablet 5 mg, Oral, AT BEDTIME palonosetron (ALOXI) injection 0.25 mg, Intravenous, Once pantoprazole EC (PROTONIX) tablet 40 mg, Oral, QDAY penicillin v potassium (VEETIDS) tablet 250 mg, Oral, BID rOPINIRole (REQUIP) tablet 0.25 mg, Oral, AT BEDTIME valACYclovir (VALTREX) tablet 500 mg, Oral, BID [COMPLETED] cytarabine (CYTOSAR) 400 mg in 0.9% NaCl 114 mL infusion, Intravenous, q12h [COMPLETED] dexamethasone (DECADRON) tablet 8 mg, Oral, Once [COMPLETED] etoposide (VEPESID) 400 mg in 0.9% NaCl 1,270 mL infusion, Intravenous, Once [COMPLETED] furosemide (LASIX) injection 20 mg, Intravenous, Once ?? [START ON 10/21/2019] levoFLOXacin (LEVAQUIN) tablet 500 mg, Oral, QDAY CONTINUOUS MEDICATIONS: ?? 0.9% NaCl infusion, Intravenous, Continuous PRN MEDICATIONS: 0.9% NaCl injection 10 mL, Intracatheter, PRN docusate sodium (COLACE) capsule 100 mg, Oral, BID PRN LORazepam (ATIVAN) tablet 0.5 mg, Oral, q8h PRN magnesium sulfate 2 g in 50 mL bolus, Intravenous, PRN ondansetron (disintegrating) (ZOFRAN ODT) tablet 4 mg, Sublingual, q6h PRN ondansetron (ZOFRAN) injection 4 mg, Intravenous, q6h PRN oxyCODONE (immediate release) (ROXICODONE) tablet 5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 starts; levaquin 500 mg daily starting on day +1 Fungal:??fluconazole 400 mg daily PJP:??Bactrim DS MWF until day -2 then again upon engraftment Viral: Valtrex 500 mg BID Metabolic acidosis -There was a one time drop in CO2 and this corrected with a day of LR. We will switch back to NS and see what happens to his CO2. Fluid volume excess -follow I and Os with weights BID 10/16/19- I reweighed the patient as his weight at 0100 was up 4kg from last evening. His weight wasonly 279 (not 283). But he continues to be net positive and up 3+kg from his admission weight and feels puffy. 10/16/19Gave lasix 20mg IVP today. Right IJ venous clot 09/27/19 -switched to lovenox 1mg/kg BID upon admission. -Plan to decrease to ppx lovenox when plts <30. Can hold anticoagulation while plts <30 Discharge Planning: Patients preferred contact information: cell Caregiver: sister, girlfriend Preferred D/C [facility]acy: [facility] Intended lodging: home Referring provider: Cesar Tavares F/U post transplant: Planned disease evaluation: day [address], will discuss if needs bone marrow as well. Planned post transplant therapy: none planned at this time -maintain on PCN VK vs Levaquin post-splenectomy until he can be re-vaccinated and adequate titers demonstrated Disposition: remain on 8N through chemo/camilo and until recovery of blood counts and TESTING SHAKING SHIPPING Dana Lala APRN [facility] Mar[facility] [phone] Associated attestation - Tony Dumont MD - 10/16/2019 1:21 PM CDT I independently interviewed and examined Jalil Luis with the BMT advanced practice provider. I reviewed my findings and assessment with the advanced practice provider and the patient. I reviewed the below note. Please see note for full detail. * Shalini Segal MD - 10/15/2019 8:15 AM CDT Autologous Hematopoietic Stem Cell Daily Note: PATIENT IDENTIFIERS: JALIL LUIS is a 49 year old old year old male who is Day -5 (Day 0 is 10/20/19) of an autologous peripheral blood stem cell transplant with a primary malignant disease diagnosis of marginal zonelymphoma. INTERVAL HISTORY: Feels well over all Slept well Ambulates and uses IS through out the day Denies N/V/D/F/C Eats and drinks well Re educated on chemo plan for the day ROS: A comprehensive review of systems was negative except for: as noted above MEDICATIONS FOR CURRENT ENCOUNTER: SCHEDULED MEDICATIONS: 0.9% NaCl injection 10 mL, Intracatheter, q8h cytarabine (CYTOSAR) 400 mg in 0.9% NaCl 114 mL infusion, Intravenous, q12h dexamethasone (DECADRON) tablet 8 mg, Oral, Once enoxaparin (LOVENOX) injection 120 mg, Subcutaneous, q12h escitalopram (LEXAPRO) tablet 10 mg, Oral, QDAY etoposide (VEPESID) 400 mg in 0.9% NaCl 1,270 mL infusion, Intravenous, Once fluconazole (DIFLUCAN) tablet 400 mg, Oral, QDAY heparin lock flush injection 500 Units, Intravenous, BID OLANZapine (ZyPREXA) tablet 5 mg, Oral, AT BEDTIME pantoprazole EC (PROTONIX) tablet 40 mg, Oral, QDAY penicillin v potassium (VEETIDS) tablet 250 mg, Oral, BID rOPINIRole (REQUIP) tablet 0.25 mg, Oral, AT BEDTIME sulfamethoxazole-trimethoprim (BACTRIM DS; SEPTRA DS) 800-160 MG tablet 1 tablet, Oral, MON, WED AND FRI valACYclovir (VALTREX) tablet 500 mg, Oral, BID [COMPLETED] cytarabine (CYTOSAR) 400 mg in 0.9% NaCl 114 mL infusion, Intravenous, q12h [COMPLETED] etoposide (VEPESID) 400 mg in 0.9% NaCl 1,270 mL infusion, Intravenous, Once ?? [START ON 10/21/2019] levoFLOXacin (LEVAQUIN) tablet 500 mg, Oral, QDAY CONTINUOUS MEDICATIONS: ?? 0.9% NaCl infusion, Intravenous, Continuous PRN MEDICATIONS: 0.9% NaCl injection 10 mL, Intracatheter, PRN docusate sodium (COLACE) capsule 100 mg, Oral, BID PRN LORazepam (ATIVAN) tablet 0.5 mg, Oral, q8h PRN magnesium sulfate 2 g in 50 mL bolus, Intravenous, PRN ondansetron (disintegrating) (ZOFRAN ODT) tablet 4 mg, Sublingual, q6h PRN ondansetron (ZOFRAN) injection 4 mg, Intravenous, q6h PRN oxyCODONE (immediate release) (ROXICODONE) tablet 5 mg, Oral, q4h PRN polyethylene glycol 3350 (MIRALAX) packet 17 g, Oral, QDAY PRN potassium chloride 40 mEq in 0.9% NaCl 270 mL bolus, Intravenous, PRN prochlorperazine (COMPAZINE) tablet 5 mg, Oral, q4h PRN ?? prochlorperazine (COMPAZINE) tablet 5 mg, Oral, q8h PRN VITALS: Vitals: 10/14/19 1539 10/14/19 1600 10/14/19200510/15/19 0350 BP: 124/70 118/78 101/51 Pulse: 91 76 78 Resp: Temp: 98.5 ??F 98.5 ??F 98 ??F SpO2: 97% 98% 95% Weight: 122.7 kg (270 lb 6.4 oz) 124.9 kg (275 lb 6.4 oz) Height: Wt Readings from Last 3 Encounters: 10/15/19 124.9 kg (275 lb 6.4 oz) 10/13/19 120.7 kg (266 lb) 10/05/19 118.8 kg (261 lb 14.4 oz) Date 10/14/19 07 - 10/15/19 0659 10/15/19 07 - 10/16/19 0659 Shift 8129-8305 3013-5707 24 Hour Total 5014-1744 2662-0703 24 Hour Total INTAKE P.O. 2008 600 2609 500 500 I.V.(mL/kg/hr) 304.1(0.2) 2740.1(1.8) 3044.2(1) 1151.7 1151.7 Shift Total(mL/kg) 2313.1(18.9) 3340.1(26.7) 5653.2(45.3) 1651.7(13.2) 1651.7(13.2) OUTPUT Urine(mL/kg/hr) 1350(0.9) 2300(1.5) 3650(1.2) 1000 1000 Shift Total(mL/kg) 1350(11) 2300(18.4) 3650(29.2) 1000(8) 1000(8) NET 963.1 1040.1 2003.2 651.7 651.7 Weight (kg) 122.7 124.9 124.9 124.9 124.9 124.9 PHYSICAL EXAM: Physical Examination: General appearance - [...] stated tenderness LABS: Recent Labs Component Name 10/15/19 0019 10/13/19 2319 10/13/19 0951 09/30/19 1115 09/21/19 1413 WBC 17.3* 8.6 5.7 7.3 66.1* RBC 3.59* 4.03* 4.43 4.04* 3.65* HGB 10.5* 11.8* 12.8* 11.9* 11.0* HCT 32.3* 35.7* 39.4 36.1* 32.7* MCV 90.0 88.6 88.9 89.4 89.6 MCH 29.2 29.3 28.9 29.5 30.1 MCHC 32.5 33.1 32.5 33.0 33.6 PLTCOUNT 396 412* 431* 532* 135* RDWSD 51.3* 48.5 48.8 49.3 49.0 RDW 15.5* 14.9* 14.9* 15.1* 14.8 MPV 10.6 10.3 9.7 10.2 9.3 NRBCABS 0.00 0.00 0.00 0.00 0.12* NRBCAUTOPCT 0.0 0.0 0.0 0.0 0.2* NEUTPCT 90.1* - 52.7 61.5 - LYMPHSPCT 4.1* - 28.0 19.0* - MONOPCT 5.0 - 9.9 11.3 - EOSPCT 0.0 - 5.8 6.8* 5 BASOPCT 0.1 - 3.2* 1.0 - IMMGRANSPCT 0.7 - 0.4 0.4 - NEUTABS 15.6* - 3.0 4.5 56.19* LYMPHS 0.7* - 1.6 1.4 0.66* MONO 0.86* - 0.56 0.82* 4.63* EOS 0.00 - 0.33 0.49* 3.31* BASO 0.02 - 0.18* 0.07* - TOTCELLCNT - - - - 100 Recent Labs Component Name 10/15/191810/13/19231810/13/19 0951 BUN 12 14 13 CREATININE 1.0 0.8 0.9 NA 142 139 140 POTASSIUM 4.0 4.5 4.3 CL 114* 109* 107 CO2 18* 23 24 CALCIUM 8.8 9.2 9.3 PROT 5.8* 6.2 6.5 ALB 3.6 3.8 3.9 TBILI 0.2 0.2 0.2 ALKPHOS 104 126 137 ALT 33 49 46 AST 15 21 20 ANIONGAP 14 12 13 BCR 12 18 14 OSMOLALITY 296 290 291 AGRATIO 1.6 1.6 1.5 EGFR >60 >60 >60 Recent Labs Component Name 10/15/191810/13/19231810/13/19 0951 MAGNESIUM 1.9 1.9 1.8 Recent Labs Component Name 10/15/191810/13/19231810/13/19 0951 PHOS 2.5 2.2* 2.4 Routine Monitoring: CMV Quant by PCR, Interp Date Value Ref Range Status 09/17/2019 Detected (Abnormal) Not Detected Final 09/09/2019 Detected (Abnormal) Not Detected Final RADIOGRAPHY: Right Neck US (09/28/19): clot in right IJ that goes into the proximal subclavian veing ASSESSMENT/PLAN: JALIL LUIS is a 49 year old year old year old male, who is Day -5 (Day 0 is 10/11/19) of an autologous peripheral blood stem cell transplant with a primary malignant disease diagnosis of marginalzone lymphoma. SYSTEMS: Marginal Zone Lymphoma in CR2 [...] CMV +, transfusion pre meds: none needed OI prophylaxis: Bacterial:??pcn VK 250 mg BID until levaquin starts; levaquin 500 mg daily starting on day +1 maintain on PCN VK vs Levaquin post-splenectomy until he can be re-vaccinated and adequate titers demonstrated Fungal:??fluconazole 400 mg daily PJP:??Bactrim DS MWF until day -2 then again upon engraftment Viral: Valtrex 500 mg BID IVIG given 08/18/19 after splenectomy Metabolic acidosis -switch NS to LR today (10/15/19) Fluid Status -weight increased and net + -lasix 20 x1 (today) -follow I and Os with weights BID Right IJ venous clot 09/27/19 -right neck US notes right IJ clot that goes into the proximal subclavian vein. -on Eliquis 5 mg BID outpatient, switched to lovenox 1mg/kg BID upon admission. -Plan to decrease to ppx lovenox when plts <30. Can hold anticoagulation while plts <30 S/P Splenectomy -laparoscopic splenectomy 08/17/19, vaccinated in clinic 08/12/19 -maintain on PCN VK vs Levaquin post-splenectomy until he can be re-vaccinated and adequate titers demonstrated ?? Arthritis -on diclofenac BID at home, will stop with admission and use oxycodone PRN Restless Leg Syndrome -flares when off diclofenac. -Start Requip 0.25 mg QHS ?? Anxiety/Depression -lexapro 10 mg daily Discharge Planning: Patients preferred contact information: cell Caregiver: sister, girlfriend Preferred D/C Pharmacy: [facility] Intended lodging: home Referring provider: Cesar Tavares Disposition: remain on 8N Vane Romero BINDERY CUTTER OPERATOR, ENVIRONMENTAL ECONOMIST-C Blood and Marrow Transplant Clinic [facility] I personally evaluated and examined Mr. Jalil Luis. I confirmed the alfonso elements of of history and physical examination. I also discussed the assessment and plan in detail with the team on rounds and with the patient. I made some modifications to the above note. I fully concur with the above assessment and plan. Ezio Segal MD Thermostat Mechanic Department of Internal Medicine Division of Hematology Oncology * Alecia Melissa RN - 10/14/2019 10:27 AM CDT A Chart Review has been conducted by Case Management. Anticipated level of care at discharge: Home Discharge Plan: stay with sister after transplant and recovery Basic Needs Assessment (BNA) Score: 9 Anticipated Discharge Date: 11/03/19 PCP: Ran Nuñez MD Per nursing assessments: independent Transportation at discharge: Family Transportation (who): Preparation Plant Supervisor/Support: Preparation Plant Supervisor/Support Person - Relationship:: onelia (sister) Preparation Plant Supervisor person: Preparation Plant Supervisor/Support Person Contact #: [phone] Home/Functional Status: Functional and Cognitive Status Is person deaf or have serious hearing difficulty?: No Is person blind or have serious difficulty seeing?: No Does person have serious difficulty walking/climbing stairs?: No Does person have difficulty dressing/bathing?: No Does person have difficulty doing errands alone?: No Does person have difficulty concentrating/remembering/making decisions?: No Equipment with patient: None Assistive Devices: None ?. Pt admitted for scheduled autologous peripheral blood stem cell transplant with a primary malignantdisease diagnosis of marginal zone lymphoma, currently Day - 6. Will continue to follow. For any questions or needs please contact: Optical Dispenser Name/Phone number: Alecia Melissa RN [phone] documented in this encounter H&P Notes * Shalini Segal MD - 10/14/2019 7:36 AM CDT Autologous Hematopoietic Stem Cell Daily Note: PATIENT IDENTIFIERS: JALIL LUIS is a 49 year old old year old male who is Day -6 (Day 0 is 10/20/19) of an autologous peripheral blood stem cell transplant with a primary malignant disease diagnosis of marginal zonelymphoma. INTERVAL HISTORY: Feels well over all Neck pain resolved Dressing itches Denies N/V/D/F/C Eats And drinks well Educated on counts, chemo, I and Os and IVF ROS: A comprehensive review of systems was negative except for: as noted above MEDICATIONS FOR CURRENT ENCOUNTER: ?? SCHEDULED MEDICATIONS: ?? 0.9% NaCl injection 10 mL, Intracatheter, q8h ?? cytarabine (CYTOSAR) 400 mg in 0.9% NaCl 114 mL infusion, Intravenous, q12h ?? enoxaparin (LOVENOX) injection 120 mg, Subcutaneous, q12h ?? escitalopram (LEXAPRO) tablet 10 mg, Oral, QDAY ?? etoposide (VEPESID) 400 mg in 0.9% NaCl 1,270 mL infusion, Intravenous, Once ?? fluconazole (DIFLUCAN) tablet 400 mg, Oral, QDAY ?? heparin lock flush injection 500 Units, Intravenous, BID ?? OLANZapine (ZyPREXA) tablet 5 mg, Oral, AT BEDTIME ?? pantoprazole EC (PROTONIX) tablet 40 mg, Oral, QDAY ?? penicillin v potassium (VEETIDS) tablet 250 mg, Oral, BID ?? rOPINIRole (REQUIP) tablet 0.25 mg, Oral, AT BEDTIME ?? sulfamethoxazole-trimethoprim (BACTRIM DS; SEPTRA DS) 800-160 MG tablet 1 tablet, Oral, MON, WEDAND FRI ?? valACYclovir (VALTREX) tablet 500 mg, Oral, BID ?? [COMPLETED] apixaban (ELIQUIS) tablet 5 mg, Oral, Once ?? [COMPLETED] dexamethasone (DECADRON) tablet 8 mg, Oral, Once ?? [START ON 10/21/2019] levoFLOXacin (LEVAQUIN) tablet 500 mg, Oral, QDAY ?? CONTINUOUS MEDICATIONS: ?? 0.9% NaCl infusion, Intravenous, Continuous ?? PRN MEDICATIONS: ?? 0.9% NaCl injection 10 mL, Intracatheter, PRN ?? 0.9% NaCl injection 10 mL, Intravenous, PRN ?? 0.9% NaCl injection 10 mL, Intravenous, PRN ?? docusate sodium (COLACE) capsule 100 mg, Oral, BID PRN ?? LORazepam (ATIVAN) tablet 0.5 mg, Oral, q8h PRN ?? magnesium sulfate 2 g in 50 mL bolus, Intravenous, PRN ?? ondansetron (disintegrating) (ZOFRAN ODT) tablet 4 mg, Sublingual, q6h PRN ?? ondansetron (ZOFRAN) injection 4 mg, Intravenous, q6h PRN ?? oxyCODONE (immediate release) (ROXICODONE) tablet 5 mg, Oral, q4h PRN ?? polyethylene glycol 3350 (MIRALAX) packet 17 g, Oral, QDAY PRN ?? potassium chloride 40 mEq in 0.9% NaCl 270 mL bolus, Intravenous, PRN ?? prochlorperazine (COMPAZINE) tablet 5 mg, Oral, q4h PRN ?? prochlorperazine (COMPAZINE) tablet 5 mg, Oral, q8h PRN VITALS: Vitals: 10/13/196 10/13/19 2318 10/14/19 0407 10/14/19 0535 BP: 130/79 123/84 104/61 Pulse: 105 94 85 Resp: 18 16 Temp: 98.5 ??F 98.3 ??F 97.9 ??F SpO2: 95% 97% 97% Weight: 118.8 kg (262 lb) Height: Wt Readings from Last 3 Encounters: 10/14/19 118.8 kg (262 lb) 10/13/19 120.7 kg (266 lb) 10/05/19 118.8 kg (261 lb 14.4 oz) Date 10/13/19 07 - 10/14/19 0659 10/14/19 0700 - 10/15/19 0659 Shift 7512-87601858 24 Hour Total 7954-5378 6972-8616 24 Hour Total INTAKE P.O. 222 500 722 I.V.(mL/kg/hr) 635.9(0.4) 635.9(0.2) Shift Total(mL/kg) 222(1.8) 1135.9(9.6) 1357.9(11.4) OUTPUT Urine(mL/kg/hr) 175(0.1) 1825(1.3) 1999(0.7) Shift Total(mL/kg) 175(1.4) 182(15.4) 1999(16.8) NET 47 -689.1 -642.1 Weight (kg) 123.4 118.8 118.8 118.8 118.8 118.8 PHYSICAL EXAM: Physical Examination: General appearance - [...] stated tenderness LABS: Recent Labs Component Name 10/13/19 2319 10/13/19 0951 09/30/19 1115 09/21/19 1413 09/21/19 0727 09/17/19 1149 WBC 8.6 5.7 7.3 66.1* 92.5* - 12.5* RBC 4.03* 4.43 4.04* 3.65* 4.26* - 4.22* HGB 11.8* 12.8* 11.9* 11.0* 12.6* - 12.5* HCT 35.7* 39.4 36.1* 32.7* 38.3* - 38.1* MCV 88.6 88.9 89.4 89.6 89.9 - 90.3 MCH 29.3 28.9 29.5 30.1 29.6 - 29.6 MCHC 33.1 32.5 33.0 33.6 32.9 - 32.8 PLTCOUNT 412* 431* 532* 135* 303 - 328 RDWSD 48.5 48.8 49.3 49.0 48.9 - 49.0 RDW 14.9* 14.9* 15.1* 14.8 14.9* - 14.6 MPV 10.3 9.7 10.2 9.3 10.9 - 10.7 NRBCABS 0.00 0.00 0.00 0.12* 0.14* - 0.00 NRBCAUTOPCT 0.0 0.0 0.0 0.2* 0.2* - 0.0 NEUTPCT - 52.7 61.5 - - - 68.1 LYMPHSPCT - 28.0 19.0* - - - 17.0* MONOPCT - 9.9 11.3 - - - 7.6 EOSPCT - 5.8 6.8* 5 5 - 5.5 BASOPCT - 3.2* 1.0 - - - 1.5 IMMGRANSPCT - 0.4 0.4 - - - 0.3 NEUTABS - 3.0 4.5 56.19* 69.38* - 8.5* LYMPHS - 1.6 1.4 0.66* 3.70* - 2.1 MONO - 0.56 0.82* 4.63* 9.25* - 0.95* EOS - 0.33 0.49* 3.31* 4.63* - 0.69* BASO - 0.18* 0.07* - 1.85* - 0.19* TOTCELLCNT - - - 100 100 - - - = values in this interval not displayed. Recent Labs Component Name 10/13/19 2319 10/13/19 0951 09/30/19 1115 BUN 14 13 18 CREATININE 0.8 0.9 0.9 NA 139 140 141 POTASSIUM 4.5 4.3 4.3 CL 109* 107 106 CO2 23 24 26 CALCIUM 9.2 9.3 9.6 PROT 6.2 6.5 6.6 ALB 3.8 3.9 3.7 TBILI 0.2 0.2 0.3 ALKPHOS 126 137 155* ALT 49 46 58* AST 21 20 23 ANIONGAP 12 13 13 BCR 18 14 20 OSMOLALITY 290 291 293 AGRATIO 1.6 1.5 1.3 EGFR >60 >60 >60 Recent Labs Component Name 10/13/19 2319 10/13/19 0951 09/30/19 1115 MAGNESIUM 1.9 1.8 2.0 Recent Labs Component Name 10/13/19 2319 10/13/19 0951 09/30/19 1115 PHOS 2.2* 2.4 2.9 Routine Monitoring: CMV Quant by PCR, Interp Date Value Ref Range Status 09/17/2019 Detected (Abnormal) Not Detected Final 09/09/2019 Detected (Abnormal) Not Detected Final RADIOGRAPHY: Right Neck US (09/28/19): clot in right IJ that goes into the proximal subclavian veing ASSESSMENT/PLAN: JALIL LUIS is a 49 year old year old year old male, who is Day -6 (Day 0 is 10/11/19) of an autologous peripheral blood stem cell transplant with a primary malignant disease diagnosis of marginalzone lymphoma. SYSTEMS: Marginal Zone Lymphoma in CR2 [...] CMV +, transfusion pre meds: none needed OI prophylaxis: Bacterial:??pcn VK 250 mg BID until levaquin starts; levaquin 500 mg daily starting on day +1 maintain on PCN VK vs Levaquin post-splenectomy until he can be re-vaccinated and adequate titers demonstrated Fungal:??fluconazole 400 mg daily PJP:??Bactrim DS MWF until day -2 then again upon engraftment Viral: Valtrex 500 mg BID IVIG given 08/18/19 after splenectomy Right IJ venous clot 09/27/19 -right neck US notes right IJ clot that goes into the proximal subclavian vein. -on Eliquis 5 mg BID outpatient, switched to lovenox 1mg/kg BID upon admission. -Plan to decrease to ppx lovenox when plts <30. Can hold anticoagulation while plts <30 S/P Splenectomy -laparoscopic splenectomy 08/17/19, vaccinated in clinic 08/12/19 -maintain on PCN VK vs Levaquin post-splenectomy until he can be re-vaccinated and adequate titers demonstrated ?? Arthritis -on diclofenac BID at home, will stop with admission and use oxycodone PRN Restless Leg Syndrome -flares when off diclofenac. -Start Requip 0.25 mg QHS ?? Anxiety/Depression -lexapro 10 mg daily Discharge Planning: Patients preferred contact information: cell Caregiver: sister, girlfriend Preferred D/C Pharmacy: [facility] Intended lodging: home Referring provider: Cesar Tavares Disposition: remain on 8N Vane Romero APRN, ENVIRONMENTAL ECONOMIST-C Blood and Marrow Transplant Clinic [facility] I personally evaluated and examined Mr. Jalil Luis. I confirmed the alfonso elements of of history and physical examination. I also discussed the assessment and plan in detail with the team on rounds and with the patient. I made some modifications to the above note. I fully concur with the above assessment and plan. Ezio Segal MD Thermostat Mechanic Department of Internal Medicine Division of Hematology Oncology documented in this encounter Procedure Notes * Dana Lala APRN-FIRST AID TEACHER - 10/20/2019 12:42 PM CDT Match Type: Autologous Type of Transplant: HPC, apheresis - cryopreserved Product Infused: HPC, apheresis - cryopreserved 5 bags = 345ml Total NC = 1109x 10^8 NC/kg = 9.4 x 10^8 CD34+ cells/kg = 10.4 x 10^6 Transplant start time: 1128 Transplant end time: 1231 Initial VS = BP 134/84 Pulse 81 Temp 97.8 ??F (Oral) Resp 16 Ht 1.715 m (5' 7.5 ) Wt 122.5 kg (270 lb) SpO2 97% BMI 41.66 kg/m2 The patient was premedicated with acetaminophen, diphenhydramine, 0.9% NaCl and dex. Christina Harris, and Lavinia Huang performed the infusion. Dr. Segal was available for the infusion. VS and I/O documented in Epic. Lungs clear to auscultation pre- and post- infusion. The patient exhibited the following side effects during the transplant infusion: flushing, headache and coughing and scratchy throat. Report given to Keena. Pt tolerated the infusion without any complaints oradverse events. Dana Lala APRN [facility] and Marrow Transplant [facility] [phone] documented in this encounter Consult Notes * Jocelin Griggs RD/DAE - 10/14/2019 1:54 PM CDTAssociated Order(s): IP CONSULT TO NUTRITIONAL SERV Initial Nutrition Assessment Nutrition Recommendations: Continue current diet Snacks and supplements from nourishment room Comments: Consult for MST of 3 for wt loss. Pt reports a good appetite, intakes are adequate. States his UBW is 180 lbs, per chart review pt has had 7% wt loss in 2 months (significant for malnutrition). No physical signs of muscle/ fat wasting noted. No nausea, vomiting, diarrhea. Last BM 10/12. Atrisk for malnutrition, RD will continue to monitor. Pt not interested in supplements. No further questions related to diet. RD encouraged pt to continue ordering foods he enjoys and have snacks from nourishment room. Assessment: Med/Surg History and Clinical Diagnoses: Diffuse large B cell lymphoma; PMH: sleep apnea, GERD, diverticulosis Height: 5' 7.5 (171.5 cm) Weight: 262 lb (118.8 kg) BMI: Body mass index is 40.43 kg/m??. BMI Range: Morbidly Obese Class 3 IBW/lb (Calculated) Male: 89 , Wt Comments: Diet order accuracy Current diet order: Regular Nutrition recommendation: agree with current nutrition order P.O.Intake for the past 48 hrs: % Meal Taken Av % Min: 100 % Max: 100 % Food Allergies: No known food allergies GI Concerns: None Chewing/Swallowing: None Pain affecting intake: No Estimated Needs: KCAL: 7316-2649(30-35 kcal/kg IBW) Protein (g): 95-109(1.4-1.6 g/kg IBW) Fluid (ml): 1 ml/kcal Needs based on: Kcal/kg- (Comment) Recommended Access Route: PO Pertinent Nutrition Labs: Reviewed Pertinent Nutrition Medications: Reviewed Skin/Wound: WNL Education needed: None Nutrition Care Process (1) Nutrition Diagnostic Statement: Increased nutrient needs related to:: cancer as evidenced by:: estimated energy needs ..;estimated protein needs .. Nutrition Diagnostic Statement Progress: New diagnostic statement established Nutrition Intervention: Meals and snacks: Monitoring: PO intake, nutrition labs, wt, BM's, I's&O's Evaluation: Nutrition Goal: Total intake will meet estimated nutrient needs Nutrition Goal Timeframe: Throughout stay Nutrition Goal Progress: New goal established Jocelin Griggs RD/DAE documented in this encounter Miscellaneous Notes * BMT.06-Support Services - Karie Jones RN - 10/27/2019 5:02 PM CDT Called Aleah, Patients caregiver, and did a discharge class with her over the phone. Answered questions. Will call me back if she has any further questions. documented in this encounter Plan of Treatment Upcoming Encounters Date Type Department Care Team (Late st Contact Info) Description 08/26/2024 11:00 AM ASSEMBLY DEPARTMENT SUPERVISOR Office Visit [facility] - Pulmonology [address] [place] [address], [place] [address] Andrew Francis MD [address] [place] [address] [address] DIV OF PULMONARY/[place] [address] Pending Results Name Type Priority Associated Diagnoses Date /Time TRANSPLANT- HPC APHERESIS Nursing Routine Diffuse large B-cell lymphoma, unspecified body region (HCC) 10/20/2019 11:20 AM CDT TRANSPLANT- HPC APHERESIS Nursing Routine Diffuse large B-cell lymphoma, unspecified body region (HCC) 10/20/2019 11:37 AM CDT TRANSPLANT- HPC APHERESIS Nursing Routine Diffuse large B-cell lymphoma, unspecified body region (HCC) 10/20/2019 11:50 AM CDT TRANSPLANT- HPC APHERESIS Nursing Routine Diffuse large B-cell lymphoma, unspecified body region (HCC) 10/20/2019 12:07 PM CDT TRANSPLANT- HPC APHERESIS Nursing Routine Diffuse large B-cell lymphoma, unspecified body region (HCC) 10/20/2019 12:18 PM CDT PREPARE PLATELET PHERESIS UNIT(S), 1 Units Blood Bank Routine 10/27/2019 12:22 AM CDT documented as of this encounter Procedures Procedure Name Priority Date/Time Associated Diagnosis Comments DIFFERENTIAL MANUAL Routine 10/29/2019 1 2:02 AM CDT CBC W AUTO DIFFERENTIAL Routine 10/29/19 12:02 AM CDT COMPREHENSIVE METABOLIC PANEL Routine 10/29/2019 12:02 AM CDT PHOSPHORUS BLOOD Routine 10/29/2019 12:0 2 AM CDT MAGNESIUM BLOOD Routine 10/29/2019 12:02 AM CDT DIFFERENTIAL MANUAL Routine 10/28/2019 1 2:00 AM CDT CBC W AUTO DIFFERENTIAL Routine 10/28/19 12:00 AM CDT COMPREHENSIVE METABOLIC PANEL Routine 10/28/2019 12:00 AM CDT PHOSPHORUS BLOOD Routine 10/28/2019 12:0 0 AM CDT MAGNESIUM BLOOD Routine 10/28/2019 12:00 AM CDT PLATELET COUNT AUTO Routine 10/27/2019 6 :03 AM CDT TRANSFUSE PLATELET PHERESIS UNIT(S) Routine 10/27/2019 5:25 AM CDT TYPE + SCREEN PANEL Routine 10/27/2019 1 2:29 AM CDT PREPARE PLATELET PHERESIS UNIT(S) Routine 10/27/2019 12:22 AM CDT DIFFERENTIAL MANUAL Routine 10/27/2019 1 2:07 AM CDT CBC W AUTO DIFFERENTIAL Routine 10/27/19 12:07 AM CDT COMPREHENSIVE METABOLIC PANEL Routine 10/27/2019 12:07 AM CDT PHOSPHORUS BLOOD Routine 10/27/2019 12:0 7 AM CDT MAGNESIUM BLOOD Routine 10/27/2019 12:07 AM CDT DIFFERENTIAL MANUAL Routine 10/26/2019 1 2:12 AM CDT CBC W AUTO DIFFERENTIAL Routine 10/26/19 12:12 AM CDT COMPREHENSIVE METABOLIC PANEL Routine 10/26/2019 12:12 AM CDT PHOSPHORUS BLOOD Routine 10/26/2019 12:1 2 AM CDT MAGNESIUM BLOOD Routine 10/26/2019 12:12 AM CDT URINALYSIS REFLEX TO MICROSCOPIC NO CULTURE Routine 10/25/2019 12:31 PM CDT CULTURE URINE Routine 10/25/2019 12:31 PM CDT CULTURE BLOOD Timed 10/25/2019 11:41 AM CDT CULTURE BLOOD Timed 10/25/2019 11:38 AM CDT XR CHEST 1VW PORTABLE Routine 10/25/2019 10:28 AM CDT Diffuse large B-cell lymphoma, unspecified body region (HCC) CYTOMEGALOVIRUS (CMV) QUANTITATIVE PLASMA Routine 10/25/2019 12:13 AM CDT DIFFERENTIAL MANUAL Routine 10/25/2019 1 2:13 AM CDT CBC W AUTO DIFFERENTIAL Routine 10/25/19 12:13 AM CDT COMPREHENSIVE METABOLIC PANEL Routine 10/25/2019 12:13 AM CDT PHOSPHORUS BLOOD Routine 10/25/2019 12:1 3 AM CDT MAGNESIUM BLOOD Routine 10/25/2019 12:13 AM CDT DIFFERENTIAL MANUAL Routine 10/24/2019 1 2:15 AM CDT CBC W AUTO DIFFERENTIAL Routine 10/24/19 12:15 AM CDT COMPREHENSIVE METABOLIC PANEL Routine 10/24/2019 12:15 AM CDT PHOSPHORUS BLOOD Routine 10/24/2019 12:1 5 AM CDT MAGNESIUM BLOOD Routine 10/24/2019 12:15 AM CDT XR CHEST 1VW PORTABLE STAT 10/23/2019 9:24 PM CDT Diffuse large B-cell lymphoma, unspecified body region (HCC) Expiratory wheezing on right side of chest C DIFFICILE GDH AG + TOXIN A+B Routine 10/23/2019 6:08 AM CDT COMPREHENSIVE METABOLIC PANEL Routine 10/23/2019 12:31 AM CDT PHOSPHORUS BLOOD Routine 10/23/2019 12:3 1 AM CDT MAGNESIUM BLOOD Routine 10/23/2019 12:31 AM CDT DIFFERENTIAL MANUAL Routine 10/23/2019 1 2:30 AM CDT CBC W AUTO DIFFERENTIAL Routine 10/23/19 12:30 AM CDT DIFFERENTIAL MANUAL Routine 10/22/2019 1 2:15 AM CDT CBC W AUTO DIFFERENTIAL Routine 10/22/19 12:15 AM CDT COMPREHENSIVE METABOLIC PANEL Routine 10/22/2019 12:15 AM CDT PHOSPHORUS BLOOD Routine 10/22/2019 12:1 5 AM CDT MAGNESIUM BLOOD Routine 10/22/2019 12:15 AM CDT PT EVAL AND TREAT Routine 10/21/2019 11: 56 PM CDT DIFFERENTIAL MANUAL Routine 10/20/2019 1 1:59 PM CDT CBC W AUTO DIFFERENTIAL Routine 10/20/19 11:59 PM CDT COMPREHENSIVE METABOLIC PANEL Routine 10/20/2019 11:59 PM CDT PHOSPHORUS BLOOD Routine 10/20/2019 11:5 9 PM CDT MAGNESIUM BLOOD Routine 10/20/2019 11:59 PM CDT CYTOMEGALOVIRUS (CMV) QUANTITATIVE PLASMA Routine 10/20/2019 12:41 AM CDT DIFFERENTIAL MANUAL Routine 10/20/2019 1 2:41 AM CDT CBC W AUTO DIFFERENTIAL Routine 10/20/19 12:41 AM CDT COMPREHENSIVE METABOLIC PANEL Routine 10/20/2019 12:41 AM CDT PHOSPHORUS BLOOD Routine 10/20/2019 12:4 1 AM CDT MAGNESIUM BLOOD Routine 10/20/2019 12:41 AM CDT CBC W AUTO DIFFERENTIAL Routine 10/19/19 12:21 AM CDT COMPREHENSIVE METABOLIC PANEL Routine 10/19/2019 12:21 AM CDT PHOSPHORUS BLOOD Routine 10/19/2019 12:2 1 AM CDT MAGNESIUM BLOOD Routine 10/19/2019 12:21 AM CDT CBC W AUTO DIFFERENTIAL Routine 10/17/19 11:43 PM CDT COMPREHENSIVE METABOLIC PANEL Routine 10/17/2019 11:43 PM CDT PHOSPHORUS BLOOD Routine 10/17/2019 11:4 3 PM CDT MAGNESIUM BLOOD Routine 10/17/2019 11:43 PM CDT CBC W AUTO DIFFERENTIAL Routine 10/17/19 12:20 AM CDT COMPREHENSIVE METABOLIC PANEL Routine 10/17/2019 12:20 AM CDT PHOSPHORUS BLOOD Routine 10/17/2019 12:2 0 AM CDT MAGNESIUM BLOOD Routine 10/17/2019 12:20 AM CDT CBC W AUTO DIFFERENTIAL Routine 10/16/19 12:02 AM CDT COMPREHENSIVE METABOLIC PANEL Routine 10/16/2019 12:02 AM CDT PHOSPHORUS BLOOD Routine 10/16/2019 12:0 2 AM CDT MAGNESIUM BLOOD Routine 10/16/2019 12:02 AM CDT CBC W AUTO DIFFERENTIAL Routine 10/15/19 12:19 AM CDT COMPREHENSIVE METABOLIC PANEL Routine 10/15/2019 12:19 AM CDT PHOSPHORUS BLOOD Routine 10/15/2019 12:1 9 AM CDT MAGNESIUM BLOOD Routine 10/15/2019 12:19 AM CDT CBC W AUTO DIFFERENTIAL Routine 10/13/19 11:19 PM CDT COMPREHENSIVE METABOLIC PANEL Routine 10/13/2019 11:19 PM CDT PHOSPHORUS BLOOD Routine 10/13/2019 11:1 9 PM CDT MAGNESIUM BLOOD Routine 10/13/2019 11:19 PM CDT documented in this encounter Results * (ABNORMAL) DIFFERENTIAL MANUAL (10/29/2019 12:02 AM CDT) WBC (corrected for NRBC) 1.5 10? 3 /uL 10/29/2019 1:20 AM [facility] Total Cell Count 100 10/29/19 1:20 AM [facility] Neutrophils Absolute Manual 0.60(L) 1.60 - 7.00 10? 3 /uL 10/29/2019 1:20 AM [facility] Comment:(BANDS+SEGS) x WBC = NEUT # (ANC) Lymphocyte Absolute Manual 0.39(L) 0.80 - 2.90 10? 3 /uL 10/29/2019 1:20 AM [facility] Monocytes Absolute Manual 0.45 0.14 - 0.66 10? 3 /uL 10/29/2019 1:20 AM [facility] Eosinophils Absolute Manual 0.02 0.00 - 0.22 10? 3 /uL 10/29/2019 1:20 AM [facility] Band % Manual 16(H) 0 - 10 % 10/29/2019 1:20 AM [facility] Neutrophil % Manual 24(L) 30 - 60 % 10/29/2019 1:20 AM [facility] Lymphocyte % Manual 26 20 - 45 % 10/29/2019 1:20 AM [facility] Monocytes % Manual 30(H) 2 - 10 % 10/29/2019 1:20 AM [facility] Eosinophils % Manual 1 1 - 6 % 10/29/2019 1:20 AM CDT [facility] Metamyelocyte % Manual 1(H) 0 % 10/29/2019 1:20 AM CDT [facility] Myelocytes % Manual 2(H) 0 % 10/29/2019 1:20 AM CDT [facility] nRBC Manual 36(H) 0 /100 WBC 10/29/2019 1:20 AM CDT [facility] Platelet Estimate Decreased (A) Adequate 10/29/2019 1:20 AM CDT [facility] Anisocytosis 1+(A) None 10/29/2019 1:20 AM CDT [facility] Hypochromia 1+(A) None 10/29/2019 1:20 AM CDT [facility] Polychromasia Occasiona l(A) None 10/29/2019 1:20 AM CDT [facility] [place] Bodies Occasiona l(A) None 10/29/2019 1:20 AM CDT [facility] Target Cells 1+(A) None 10/29/2019 1:20 AM CDT [facility] Schistocytes Occasiona l(A) None 10/29/2019 1:20 AM CDT [facility] Blood BLOOD SPECIMEN / Unknown Venipuncture / Unknown 10/29/2019 12:02 AM CDT 10/29/2019 12:02 AM CDT Tiffanie Nguyen [facility] - HEMATOLOG Y ORDERABLES Performing Organization Address City/[facility]/ZIP Co de Phone Number [address] [phone] * PHOSPHORUS BLOOD (10/29/2019 12:02 AM CDT) Phosphorus 3.5 2.3 - 4.7 mg/dL 10/29/2019 12:20 AM CDT [facility] Blood BLOOD SPECIMEN / Unknown Venipuncture / Unknown 10/29/2019 12:02 AM CDT 10/29/2019 12:02 AM CDT Tiffanie Nguyen [facility] LAB - CHEMISTRY ORDERABLES [address] [phone] * MAGNESIUM BLOOD (10/29/2019 12:02 AM CDT) Pathologist [facility] Magnesium 1.8 1.6 - 2.6 mg/dL 10/29/2019 12:20 AM [facility] Blood BLOOD SPECIMEN / Unknown Venipuncture / Unknown 10/29/2019 12:02 AM CDT 10/29/2019 12:02 AM CDT Tiffanie Seyomur Patrick [employer] O[employer] LAB - CHEMISTRY ORDERABLES [facility] [address] [phone] * (ABNORMAL) COMPREHENSIVE METABOLIC PANEL (10/29/2019 12:02 AM CDT) Pathologist [facility] BUN 11 7 - 26 mg/dL 10/29/2019 12:20 AM [facility] Creatinine 1.0 0.6 - 1.2 mg/dL 10/29/2019 12:20 AM [facility] Sodium 138 136 - 145 mmol/L 10/29/2019 12:20 AM [facility] Potassium 4.1 3.5 - 4.5 mmol/L 10/29/2019 12:20 AM [facility] Chloride 101 98 - 107 mmol/L 10/29/2019 12:20 AM [facility] CO2 25 22 - 29 mmol/L 10/29/2019 12:20 AM [facility] Glucose 92 70 - 115 mg/dL 10/29/2019 12:20 AM [facility] Calcium 9.1 8.4 - 10.2 mg/dL 10/29/2019 12:20 AM [facility] Protein Total 6.0 6.0 - 8.3 g/dL 10/29/2019 12:20 AM [facility] Albumin 2.9(L) 3.4 - 5.0 g/dL 10/29/2019 12:20 AM [facility] Bilirubin Total 0.1(L) 0.2 - 1.2 mg/dL 10/29/2019 12:20 AM [facility] Alkaline Phosphatase 102 40 - 150 Units/L 10/29/2019 12:20 AM [facility] ALT 43 0 - 55 Units/L 10/29/2019 12:20 AM [facility] AST 14 5 - 34 Units/L 10/29/2019 12:20 AM [facility] Anion Gap 16 8 - 18 10/29/2019 12:20 AM [facility] BUN/Creatinine Ratio 11 7 - 23 10/29/2019 12:20 AM [facility] Osmolality Calculated 285 270 - 300 mOsm/kg 10/29/2019 12:20 AM [facility] Albumin/Globulin Ratio 0.9(L) 1.1 - 2.3 10/29/2019 12:20 AM [facility] eGFR >60 >60 mL/min/1.7 3 m2 10/29/2019 12:20 AM [facility] Blood BLOOD SPECIMEN / Unknown Venipuncture / Unknown 10/29/2019 12:02 AM CDT 10/29/2019 12:02 AM T Tiffanie Nguyen [employer] LAB - CHEMISTRY ORDERABLES [address] [phone] * (ABNORMAL) CBC W AUTO DIFFERENTIAL (10/29/2019 12:02 AM T) WBC 1.5(L) 3.5 - 10.5 10? 3 /uL 10/29/2019 12:12 AM [facility] Comment:The WBC count is cor rected by the instrument for nRBC's RBC 3.37(L) 4.30 - 5.70 10? 6 /uL 10/29/2019 12:12 AM [facility] Hemoglobin 9.7(L) 13.5 - 17.5 g/dL 10/29/2019 12:12 AM [facility] Hematocrit 28.3(L) 39.0 - 50.0 % 10/29/2019 12:12 AM [facility] MCV 84.0 81.0 - 97.0 fL 10/29/2019 12:12 AM [facility] MCH 28.8 28.0 - 34.0 pg 10/29/2019 12:12 AM [facility] MCHC 34.3 32.0 - 36.0 g/dL 10/29/2019 12:12 AM [facility] Platelet Count 25(LL) 150 - 400 10? 3 /uL 10/29/2019 12:12 AM [facility] Comment:Checked and not call ed to [address] [place]. RDW-SD 46.0 36.0 - 50.0 fL 10/29/2019 12:12 AM [facility] RDW-CV 15.1(H) 11.2 - 14.8 % 10/29/2019 12:12 AM [facility] MPV 10/29/2019 12:12 AM [facility] Comment:Test not performed. nRBC Absolute 0.43(H) 0 10? 3 /uL 10/29/2019 12:12 AM [facility] nRBC Auto 29.5(H) 0 /100 WBC 10/29/2019 12:12 AM [facility] Blood BLOOD SPECIMEN / Unknown Venipuncture / Unknown 10/29/2019 12:02 AM CDT 10/29/2019 12:02 AM CDT Lara Patrick [employer]TER OPERATOR[facility] LAB - HEMATOLOG Y ORDERABLES Performing Organization Address City/State/[facility] Co de Phone Number [facility] [address] [place] [address] * (ABNORMAL) DIFFERENTIAL MANUAL (10/28/2019 12:00 AM CDT) WBC (corrected for NRBC) 0.5 10? 3 /uL 10/28/2019 12:51 AM [facility] Total Cell Count 100 10/28/2019 12:51 AM [facility] Neutrophils Absolute Manual 0.02(LL) 1.60 - 7.00 10? 3 /uL 10/28/2019 12:51 AM [facility] Comment:(BANDS+SEGS) x WBC = NEUT # (ANC) Lymphocyte Absolute Manual 0.33(L) 0.80 - 2.90 10? 3 /uL 10/28/2019 12:51 AM [facility] Monocytes Absolute Manual 0.16 0.14 - 0.66 10? 3 /uL 10/28/2019 12:51 AM [facility] Eosinophils Absolute Manual 0.01 0.00 - 0.22 10? 3 /uL 10/28/2019 12:51 AM [facility] Neutrophil % Manual 3(L) 30 - 60 % 10/28/2019 12:51 AM [facility] Lymphocyte % Manual 65(H) 20 - 45 % 10/28/2019 12:51 AM [facility] Monocytes % Manual 31(H) 2 - 10 % 10/28/2019 12:51 AM [facility] Eosinophils % Manual 1 1 - 6 % 10/28/2019 12:51 AM [facility] Platelet Estimate Decreased (A) Adequate 10/28/2019 12:51 AM [facility] [place] Bodies 1+(A) None 10/28/2019 12:51 AM [facility] Target Cells 1+(A) None 10/28/2019 12:51 AM [facility] Tear Drop Cells Occasiona l(A) None 10/28/2019 12:51 AM [facility] Blood BLOOD SPECIMEN / Unknown Venipuncture / Unknown 10/28/2019 10/28/2019 12:00 AM CDT Narrative [facility] - 10/28/2019 12:51 AM CDT Differential performed on buffy coat slide Tiffanie Nguyen B[employer] C[employer]TER OPERATOR-[employer] LAB - HEMATOLOG Y ORDERABLES [address] [phone] * PHOSPHORUS BLOOD (10/28/2019 12:00 AM CDT) Phosphorus 3.2 2.3 - 4.7 mg/dL 10/28/2019 12:22 AM [facility] Blood BLOOD SPECIMEN / Unknown Venipuncture / Unknown 10/28/2019 10/28/2019 12:00 AM CDT Tiffanie Nguyen [employer] OPERATOR[employer] LAB - CHEMISTRY ORDERABLES [address] [phone] * MAGNESIUM BLOOD (10/28/2019 12:00 AM CDT) Magnesium 1.9 1.6 - 2.6 mg/dL 10/28/2019 12:22 AM [facility] Blood BLOOD SPECIMEN / Unknown Venipuncture / Unknown 10/28/2019 10/28/2019 12:00 AM CDT Tiffanie Nguyen [employer] OPERATOR[employer] LAB - CHEMISTRY ORDERABLES Performing Organization Address City/[facility]/ZIP Co de Phone Number [address] [phone] * (ABNORMAL) COMPREHENSIVE METABOLIC PANEL (10/28/2019 12:00 AM CDT) BUN 11 7 - 26 mg/dL 10/28/2019 12:22 AM [facility] Creatinine 0.9 0.6 - 1.2 mg/dL 10/28/2019 12:22 AM [facility] Sodium 137 136 - 145 mmol/L 10/28/2019 12:22 AM [facility] Potassium 4.0 3.5 - 4.5 mmol/L 10/28/2019 12:22 AM [facility] Chloride 103 98 - 107 mmol/L 10/28/2019 12:22 AM [facility] CO2 25 22 - 29 mmol/L 10/28/2019 12:22 AM [facility] Glucose 102 70 - 115 mg/dL 10/28/2019 12:22 AM [facility] Calcium 8.9 8.4 - 10.2 mg/dL 10/28/2019 12:22 AM [facility] Protein Total 5.9(L) 6.0 - 8.3 g/dL 10/28/2019 12:22 AM [facility] Albumin 2.8(L) 3.4 - 5.0 g/dL 10/28/2019 12:22 AM [facility] Bilirubin Total 0.1(L) 0.2 - 1.2 mg/dL 10/28/2019 12:22 AM [facility] Alkaline Phosphatase 95 40 - 150 Units/L 10/28/2019 12:22 AM [facility] ALT 54 0 - 55 Units/L 10/28/2019 12:22 AM [facility] AST 18 5 - 34 Units/L 10/28/2019 12:22 AM [facility] Anion Gap 13 8 - 18 10/28/2019 12:22 AM [facility] BUN/Creatinine Ratio 12 7 - 23 10/28/2019 12:22 AM [facility] Osmolality Calculated 284 270 - 300 mOsm/kg 10/28/2019 12:22 AM [facility] Albumin/Globulin Ratio 0.9(L) 1.1 - 2.3 10/28/2019 12:22 AM [facility] eGFR >60 >60 mL/min/1.7 3 m2 10/28/2019 12:22 AM [facility] Blood BLOOD SPECIMEN / Unknown Venipuncture / Unknown 10/28/2019 10/28/2019 12:00 AM [facility] Tiffanie Nguyen [employer] OPERATOR[employer] LAB - CHEMISTRY ORDERABLES Performing Organization Address City/State/[facility] Co de Phone Number [address] [phone] * (ABNORMAL) CBC W AUTO DIFFERENTIAL (10/28/2019 12:00 AM T) WBC 0.5(LL) 3.5 - 10.5 10? 3 /uL 10/28/2019 12:07 AM [facility] Comment:The WBC count is cor rected by the instrument for nRBC's RBC 3.42(L) 4.30 - 5.70 10? 6 /uL 10/28/2019 12:07 AM [facility] Hemoglobin 9.8(L) 13.5 - 17.5 g/dL 10/28/2019 12:07 AM [facility] Hematocrit 28.4(L) 39.0 - 50.0 % 10/28/2019 12:07 AM [facility] MCV 83.0 81.0 - 97.0 fL 10/28/2019 12:07 AM [facility] MCH 28.7 28.0 - 34.0 pg 10/28/2019 12:07 AM [facility] MCHC 34.5 32.0 - 36.0 g/dL 10/28/2019 12:07 AM [facility] Platelet Count 33(L) 150 - 400 10? 3 /uL 10/28/2019 12:07 AM [facility] Comment:Checked by periphera l smear. RDW-SD 47.0 36.0 - 50.0 fL 10/28/2019 12:07 AM [facility] RDW-CV 15.3(H) 11.2 - 14.8 % 10/28/2019 12:07 AM [facility] MPV 8.9(L) 9.3 - 12.8 fL 10/28/2019 12:07 AM [facility] nRBC Absolute 0.03(H) 0 10? 3 /uL 10/28/2019 12:07 AM [facility] nRBC Auto 6.5(H) 0 /100 WBC 10/28/2019 12:07 AM [facility] Blood BLOOD SPECIMEN / Unknown Venipuncture / Unknown 10/28/2019 10/28/2019 12:00 AM CDT Tiffanie Nguyen B[employer] C[employer]TER OPERATOR[employer] LAB - HEMATOLOG Y ORDERABLES [address] [phone] * TRANSFUSE PLATELET PHERESIS UNIT(S) (10/27/2019 6:07 AM CDT) Saturnino Crawford MD NURSING - BLOOD PROD TRANSFUSION * TRANSFUSE PLATELET PHERESIS UNIT(S), 1 Units (10/27/2019 6:07 AM CDT) Saturnino Crawford MD NURSING - BLOOD PROD TRANSFUSION * (ABNORMAL) PLATELET COUNT AUTO (10/27/2019 6:03 AM CDT) Pathologist [facility] Platelet Count 60(L) 150 - 400 10? 3 /uL 10/27/2019 6:35 AM CDT [facility] Comment:Confirmed by repeat analysis. Blood BLOOD SPECIMEN / Unknown Venipuncture / Unknown 10/27/2019 6:03 AM CDT 10/27/2019 6:13 AM CDT Saturnino Crawford MD LAB - HEMATOLOGY ORD ERABLES [address] [phone] * TYPE + SCREEN PANEL (10/27/2019 12:29 AM CDT) [facility] Antibody Screen NEG 0 1:37 AM CDT [facility] ABO Rh A POS 10/27/2019 1:37 AM CDT [facility] Blood Bank BLOOD SPECIMEN / Unknown 10/27/2019 12:29 AM CDT 10/27/2019 12:30 AM CDT Saturnino Crawford MD LAB - BLOOD BANK ORD ERABLES Performing Organization Address City/[facility] Co de Phone Number [facility] [address] [place] [address] * (ABNORMAL) DIFFERENTIAL MANUAL (10/27/2019 12:07 AM CDT) [facility] WBC (corrected for NRBC) 0.2 10? 3 /uL 10/27/2019 1:49 AM CDT [facility] Total Cell Count 100 10/27/19 20 1:49 AM CDT [facility] Neutrophils Absolute Manual 0.01(LL) 1.60 - 7.00 10? 3 /uL 10/27/2019 1:49 AM CDT [facility] Comment:(BANDS+SEGS) x WBC = NEUT # (ANC) Lymphocyte Absolute Manual 0.18(L) 0.80 - 2.90 10? 3 /uL 10/27/2019 1:49 AM CDT [facility] Monocytes Absolute Manual 0.01(L) 0.14 - 0.66 10? 3 /uL 10/27/2019 1:49 AM CDT [facility] Eosinophils Absolute Manual 0.00 0.00 - 0.22 10? 3 /uL 10/27/2019 1:49 AM CDT [facility] Neutrophil % Manual 3(L) 30 - 60 % 10/27/2019 1:49 AM T [facility] Lymphocyte % Manual 89(H) 20 - 45 % 10/27/2019 1:49 AM T [facility] Monocytes % Manual 6 2 - 10 % 10/27/2019 1:49 AM T [facility] Eosinophils % Manual 2 1 - 6 % 10/27/2019 1:49 AM T [facility] Platelet Estimate Decreased (A) Adequate 10/27/2019 1:49 AM T [facility] Poikilocytes 1+(A) None 10/27/2019 1:49 AM T [facility] Target Cells 1+(A) None 10/27/2019 1:49 AM CDT [facility] Blood BLOOD SPECIMEN / Unknown Venipuncture / Unknown 10/27/2019 12:07 AM CDT 10/27/2019 12:07 AM CDT [facility] - [facility] Y ORDERABLES [address] [phone] * PHOSPHORUS BLOOD (10/27/2019 12:07 AM CDT) Phosphorus 3.6 2.3 - 4.7 mg/dL 10/27/2019 12:34 AM CDT [facility] Blood BLOOD SPECIMEN / Unknown Venipuncture / Unknown 10/27/2019 12:07 AM CDT 10/27/2019 12:07 AM CDT [facility] - CHEMISTRY ORDERABLES [address] [phone] * MAGNESIUM BLOOD (10/27/2019 12:07 AM CDT) Magnesium 1.9 1.6 - 2.6 mg/dL 10/27/2019 12:34 AM [facility] Blood BLOOD SPECIMEN / Unknown Venipuncture / Unknown 10/27/2019 12:07 AM CDT 10/27/2019 12:07 AM CDT Tiffanie Seymour Patrick [employer] [employer] - CHEMISTRY ORDERABLES [facility] [address] [place] [address] * (ABNORMAL) COMPREHENSIVE METABOLIC PANEL (10/27/2019 12:07 AM CDT) BUN 13 7 - 26 mg/dL 10/27/2019 12:34 AM [facility] Creatinine 0.9 0.6 - 1.2 mg/dL 10/27/2019 12:34 AM [facility] Sodium 138 136 - 145 mmol/L 10/27/2019 12:34 AM [facility] Potassium 4.1 3.5 - 4.5 mmol/L 10/27/2019 12:34 AM [facility] Chloride 106 98 - 107 mmol/L 10/27/2019 12:34 AM [facility] CO2 24 22 - 29 mmol/L 10/27/2019 12:34 AM [facility] Glucose 106 70 - 115 mg/dL 10/27/2019 12:34 AM [facility] Calcium 9.0 8.4 - 10.2 mg/dL 10/27/2019 12:34 AM [facility] Protein Total 5.8(L) 6.0 - 8.3 g/dL 10/27/2019 12:34 AM [facility] Albumin 2.8(L) 3.4 - 5.0 g/dL 10/27/2019 12:34 AM [facility] Bilirubin Total 0.1(L) 0.2 - 1.2 mg/dL 10/27/2019 12:34 AM [facility] Alkaline Phosphatase 84 40 - 150 Units/L 10/27/2019 12:34 AM [facility] ALT 53 0 - 55 Units/L 10/27/2019 12:34 AM [facility] AST 17 5 - 34 Units/L 10/27/2019 12:34 AM [facility] Anion Gap 12 8 - 18 10/27/2019 12:34 AM [facility] BUN/Creatinine Ratio 14 7 - 23 10/27/2019 12:34 AM [facility] Osmolality Calculated 287 270 - 300 mOsm/kg 10/27/2019 12:34 AM [facility] Albumin/Globulin Ratio 0.9(L) 1.1 - 2.3 10/27/2019 12:34 AM [facility] eGFR >60 >60 mL/min/1.7 3 m2 10/27/2019 12:34 AM [facility] Blood BLOOD SPECIMEN / Unknown Venipuncture / Unknown 10/27/2019 12:07 AM CDT 10/27/2019 12:07 AM T Tiffanie Nguyen [employer] [facility] - CHEMISTRY ORDERABLES [facility] [address] [place] [address] * (ABNORMAL) CBC W AUTO DIFFERENTIAL (10/27/2019 12:07 AM T) WBC 0.2(LL) 3.5 - 10.5 10? 3 /uL 10/27/2019 12:19 AM [facility] Comment:Checked and not call ed to [address] [place] [address]. RBC 3.50(L) 4.30 - 5.70 10? 6 /uL 10/27/2019 12:19 AM [facility] Hemoglobin 10.1(L) 13.5 - 17.5 g/dL 10/27/2019 12:19 AM [facility] Hematocrit 29.1(L) 39.0 - 50.0 % 10/27/2019 12:19 AM [facility] MCV 83.1 81.0 - 97.0 fL 10/27/2019 12:19 AM [facility] MCH 28.9 28.0 - 34.0 pg 10/27/2019 12:19 AM [facility] MCHC 34.7 32.0 - 36.0 g/dL 10/27/2019 12:19 AM [facility] Platelet Count 3(LL) 150 - 400 10? 3 /uL 10/27/2019 12:19 AM [facility] Comment:Checked and not call ed to [address] [place] [address]. RDW-SD 46.8 36.0 - 50.0 fL 10/27/2019 12:19 AM [facility] RDW-CV 15.4(H) 11.2 - 14.8 % 10/27/2019 12:19 AM [facility] MPV 10/27/2019 12:19 AM [facility] Comment:Not reported nRBC Absolute 0.00 0 10? 3 /uL 10/27/2019 12:19 AM [facility] nRBC Auto 0.0 0 /100 WBC 10/27/2019 12:19 AM [facility] Blood BLOOD SPECIMEN / Unknown Venipuncture / Unknown 10/27/2019 12:07 AM CDT 10/27/2019 12:07 AM CDT Tiffanie Nguyen [employer] - HEMATOLOG Y ORDERABLES Performing Organization Address City/State/[facility] [facility] Co de Phone Number [address] [phone] * (ABNORMAL) DIFFERENTIAL MANUAL (10/26/2019 12:12 AM CDT) WBC (corrected for NRBC) 0.3 10? 3 /uL 10/26/2019 1:52 AM [facility] Total Cell Count 100 10/26/2019 1:52 AM [facility] Neutrophils Absolute Manual 0.00(LL) 1.60 - 7.00 10? 3 /uL 10/26/2019 1:52 AM [facility] Lymphocyte Absolute Manual 0.27(L) 0.80 - 2.90 10? 3 /uL 10/26/2019 1:52 AM [facility] Monocytes Absolute Manual 0.02(L) 0.14 - 0.66 10? 3 /uL 10/26/2019 1:52 AM [facility] Eosinophils Absolute Manual 0.02 0.00 - 0.22 10? 3 /uL 10/26/2019 1:52 AM [facility] Neutrophil % Manual 1(L) 30 - 60 % 10/26/2019 1:52 AM [facility] Lymphocyte % Manual 89(H) 20 - 45 % 10/26/2019 1:52 AM [facility] Monocytes % Manual 5 2 - 10 % 10/26/2019 1:52 AM [facility] Eosinophils % Manual 5 1 - 6 % 10/26/2019 1:52 AM [facility] Platelet Estimate Decreased (A) Adequate 10/26/2019 1:52 AM [facility] Target Cells 1+(A) None 10/26/2019 1:52 AM [facility] Ovalocytes 1+(A) None 10/26/2019 1:52 AM [facility] [place] Cells Occasiona l(A) None 10/26/2019 1:52 AM [facility] Tear Drop Cells 1+(A) None 0 1:52 AM [facility] Blood BLOOD SPECIMEN / Unknown Venipuncture / Unknown 10/26/2019 12:12 AM CDT 10/26/2019 12:12 AM CDT Tiffanie Nguyen BINDERY CUTTER [facility] - HEMATOLOG Y ORDERABLES Performing Organization Address City/State/[facility] Co de Phone Number [facility] [address] [place] [address] * PHOSPHORUS BLOOD (10/26/2019 12:12 AM CDT) Phosphorus 3.5 2.3 - 4.7 mg/dL 10/26/2019 12:32 AM CDT [facility] Blood BLOOD SPECIMEN / Unknown Venipuncture / Unknown 10/26/2019 12:12 AM CDT 10/26/2019 12:12 AM CDT Tiffanie Nguyen BINDERY CUTTER [facility] - CHEMISTRY ORDERABLES [facility] [address] [place] [address] * MAGNESIUM BLOOD (10/26/2019 12:12 AM CDT) Pathologist [facility] Magnesium 1.9 1.6 - 2.6 mg/dL 10/26/2019 12:32 AM [facility] Blood BLOOD SPECIMEN / Unknown Venipuncture / Unknown 10/26/2019 12:12 AM CDT 10/26/2019 12:12 AM CDT Lara Patrick BINDERY CUTTER OPERATOR-[facility] [employer] LAB - CHEMISTRY ORDERABLES [address] [phone] * (ABNORMAL) COMPREHENSIVE METABOLIC PANEL (10/26/2019 12:12 AM CDT) Pathologist [facility] BUN 12 7 - 26 mg/dL 10/26/2019 12:32 AM [facility] Creatinine 0.9 0.6 - 1.2 mg/dL 10/26/2019 12:32 AM [facility] Sodium 135(L) 136 - 145 mmol/L 10/26/2019 12:32 AM [facility] Potassium 4.2 3.5 - 4.5 mmol/L 10/26/2019 12:32 AM [facility] Chloride 104 98 - 107 mmol/L 10/26/2019 12:32 AM [facility] CO2 23 22 - 29 mmol/L 10/26/2019 12:32 AM [facility] Glucose 109 70 - 115 mg/dL 10/26/2019 12:32 AM [facility] Calcium 8.7 8.4 - 10.2 mg/dL 10/26/2019 12:32 AM [facility] Protein Total 5.5(L) 6.0 - 8.3 g/dL 10/26/2019 12:32 AM [facility] Albumin 2.8(L) 3.4 - 5.0 g/dL 10/26/2019 12:32 AM [facility] Bilirubin Total 0.2 0.2 - 1.2 mg/dL 10/26/2019 12:32 AM [facility] Alkaline Phosphatase 69 40 - 150 Units/L 10/26/2019 12:32 AM [facility] ALT 46 0 - 55 Units/L 10/26/2019 12:32 AM [facility] AST 12 5 - 34 Units/L 10/26/2019 12:32 AM [facility] Anion Gap 12 8 - 18 10/26/2019 12:32 AM [facility] BUN/Creatinine Ratio 13 7 - 23 10/26/2019 12:32 AM [facility] Osmolality Calculated 280 270 - 300 mOsm/kg 10/26/2019 12:32 AM [facility] Albumin/Globulin Ratio 1.0(L) 1.1 - 2.3 10/26/2019 12:32 AM [facility] eGFR >60 >60 mL/min/1.7 3 m2 10/26/2019 12:32 AM [facility] Blood BLOOD SPECIMEN / Unknown Venipuncture / Unknown 10/26/2019 12:12 AM CDT 10/26/2019 12:12 AM T Tiffanie Nguyen BINDERY CUTTER OPERATOR-[employer] [employer] LAB - CHEMISTRY ORDERABLES Performing Organization Address City/State/[facility] Co de Phone Number [address] [phone] * (ABNORMAL) CBC W AUTO DIFFERENTIAL (10/26/2019 12:12 AM CDT) WBC 0.3(LL) 3.5 - 10.5 10? 3 /uL 10/26/2019 12:23 AM [facility] Comment:Checked and not call ed to [address] [place]. RBC 3.49(L) 4.30 - 5.70 10? 6 /uL 10/26/2019 12:23 AM [facility] Hemoglobin 10.0(L) 13.5 - 17.5 g/dL 10/26/2019 12:23 AM [facility] Hematocrit 29.4(L) 39.0 - 50.0 % 10/26/2019 12:23 AM [facility] MCV 84.2 81.0 - 97.0 fL 10/26/2019 12:23 AM [facility] MCH 28.7 28.0 - 34.0 pg 10/26/2019 12:23 AM [facility] MCHC 34.0 32.0 - 36.0 g/dL 10/26/2019 12:23 AM [facility] Platelet Count 10(LL) 150 - 400 10? 3 /uL 10/26/2019 12:23 AM [facility] Comment:Checked and not call ed to [address] [place] [address]. RDW-SD 46.8 36.0 - 50.0 fL 10/26/2019 12:23 AM [facility] RDW-CV 15.4(H) 11.2 - 14.8 % 10/26/2019 12:23 AM [facility] MPV 10/26/2019 12:23 AM [facility] Comment:NO PARAMETER AVAILAB LE. nRBC Absolute 0.00 0 10? 3 /uL 10/26/2019 12:23 AM [facility] nRBC Auto 0.0 0 /100 WBC 10/26/2019 12:23 AM [facility] Blood BLOOD SPECIMEN / Unknown Venipuncture / Unknown 10/26/2019 12:12 AM CDT 10/26/2019 12:12 AM CDT Tiffanie Nguyen APRN-[employer] [employer] LAB - HEMATOLOG Y ORDERABLES Performing Organization Address City/State/[facility] Co de Phone Number [address] [phone] * CULTURE URINE (10/25/2019 12:31 PM CDT) Culture Urine <10,000 CFU/mL urogenital josseline SPENCER 10/26/2019 6:24 PM CDT [facility] Urine URINE SPECIMEN OBTAINED BY CLEAN CATCH PROCEDURE / Unknown Collection / Unknown 10/25/2019 12:31 PM CDT 10/25/2019 12:42 PM CDT Asim Ramirez BINDERY CUTTER OPERATOR-[facility] [employer] LAB - MICROBIOLO GY ORDERABLES [facility] MICRO[facility] [address] [place], [place] [address], [place] [phone] * (ABNORMAL) URINALYSIS REFLEX TO MICROSCOPIC NO CULTURE (10/25/2019 12:31 PM CDT) Color UA Yellow Straw, Yellow, Colorless 10/25/2019 12:52 PM [facility] Clarity UA Clear Clear, Slt Cloudy 10/25/2019 12:52 PM [facility] Specific [place] UA 1.017 1.005 - 1.030 10/25/2019 12:52 PM [facility] pH UA 5.0 5.0 - 8.0 pH 10/25/2019 12:52 PM [facility] Protein UA Negative Negative mg/dL 10/25/2019 12:52 PM [facility] Glucose UA Negative Negative mg/dL 10/25/2019 12:52 PM [facility] Ketone UA Negative Negative mg/dL 10/25/2019 12:52 PM [facility] Bilirubin UA Negative Negative mg/dL 10/25/2019 12:52 PM [facility] Blood UA 2+(A) Negative 10/25/2019 12:52 PM [facility] Nitrite UA Negative Negative 10/25/2019 12:52 PM [facility] Leukocyte Esterase Negative Negative 10/25/2019 12:52 PM [facility] Urobilinogen UA Negative Negative mg/dL 10/25/2019 12:52 PM [facility] RBC UA 3-5 None Seen, 0-2, 3-5 /HPF 10/25/2019 12:52 PM [facility] WBC UA 0-5 None Seen, 0-5 /HPF 10/25/2019 12:52 PM [facility] Squamous Epithelial Cells UA None Seen None Seen, 0-2 /HPF 10/25/2019 12:52 PM [facility] Mucus UA 1+ None, 1+ /LPF 10/25/2019 12:52 PM [facility] Urine URINE SPECIMEN OBTAINED BY CLEAN CATCH PROCEDURE / Unknown Collection / Unknown 10/25/2019 12:31 PM CDT 10/25/2019 12:42 PM CDT Narrative [facility] - 10/25/2019 12:52 PM CDT Asim Heredia James BINDERY CUTTER OPERATOR-[employer] LAB - URINALYSIS ORDERABLES [facility] [address] [place] [address], [facility] [phone] * CULTURE BLOOD (10/25/2019 11:41 AM CDT) Culture No growth day 5 SPENCER 10/30/2019 5:30 PM CDT [facility]CRO[facility] Blood PERIPHERAL BLOOD / Unknown Venipuncture / Unknown 10/25/2019 11:41 AM CDT 10/25/2019 12:18 PM CDT Asim Heredia James BINDERY CUTTER OPERATOR-[employer] LAB - MICROBIOLO GY ORDERABLES Performing Organization Address City/[facility]/ZIP Co de Phone Number [facility] MICROBIOLOGY [address] [place] [address], [facility] [phone] * CULTURE BLOOD (10/25/2019 11:38 AM CDT) Culture No growth day 5 SP[facility]ER 10/30/2019 5:30 PM CDT [facility]CRO[facility] Blood PERIPHERAL BLOOD / Unknown Venipuncture / Unknown 10/25/2019 11:38 AM CDT 10/25/2019 12:18 PM CDT Asim Heredia James BINDERY CUTTER OPERATOR-[employer] [employer] LAB - MICROBIOLO GY ORDERABLES Performing Organization Address City/[facility]/ZIP Co de Phone Number [facility] MICROBIOLOGY [address] [place] [address], [facility] [phone] * XR CHEST 1VW PORTABLE (10/25/2019 10:28 AM CDT) Anatomical Region Laterality Modality Chest Radiographic Chayito ging 10/25/2019 10:2 0 AM CDT Impressions 10/25/2019 11:56 AM CDT FINDINGS/IMPRESSION: Left IJ approach CVC terminates in the proximal SVC. There is no focal consolidation, pleural effusion, or pneumothorax. The cardiomediastinal silhouette is normal. Dictated by Alejandra Pena MD (resident). Dr. OMAR Harris have personally reviewed and interpreted this examination/study. This report was electronically signed by OMAR WOODSON ??on 10/25/2019 11:56 AM . Narrative 10/25/2019 11:56 AM CDT ORDER DATE: 10/25/2019 10:05 AM EXAMINATION: XR CHEST 1VW PORTABLE HISTORY: C83.30: Diffuse large B-cell lymphoma, unspecified body region COMPARISON: 10/23/2019. Procedure Note Omar Woodson, DO - 10/25/2019 ORDER DATE: 10/25/2019 10:05 AM EXAMINATION: XR CHEST 1VW PORTABLE HISTORY: C83.30: Diffuse large B-cell lymphoma, unspecified body region COMPARISON: 10/23/2019. FINDINGS/IMPRESSION: Left IJ approach CVC terminates in the proximal SVC. There is no focal consolidation, pleural effusion, or pneumothorax. The cardiomediastinal silhouette is normal. Dictated by Alejandra Pena MD (resident). I, Dr. OMAR WOODSON have personally reviewed and interpreted this examination/study. This report was electronically signed by OMAR WOODSON on 10/25/2019 11:56 AM . Asim A James BINDERY CUTTER OPERATOR-[employer] DIAGNOSTIC IMAGI NG ORDERABLES * (ABNORMAL) DIFFERENTIAL MANUAL (10/25/2019 12:13 AM CDT) WBC (corrected for NRBC) 0.3 10? 3 /uL 10/25/2019 2:54 AM CDT [facility] Total Cell Count 100 10/25/19 20 2:54 AM CDT [facility] Neutrophils Absolute Manual 0.00(LL) 1.60 - 7.00 10? 3 /uL 10/25/2019 2:54 AM CDT [facility] Lymphocyte Absolute Manual 0.27(L) 0.80 - 2.90 10? 3 /uL 10/25/2019 2:54 AM CDT [facility] Monocytes Absolute Manual 0.01(L) 0.14 - 0.66 10? 3 /uL 10/25/2019 2:54 AM [facility] Eosinophils Absolute Manual 0.02 0.00 - 0.22 10? 3 /uL 10/25/2019 2:54 AM [facility] Neutrophil % Manual 0(L) 30 - 60 % 10/25/2019 2:54 AM [facility] Lymphocyte % Manual 90(H) 20 - 45 % 10/25/2019 2:54 AM [facility] Monocytes % Manual 4 2 - 10 % 10/25/2019 2:54 AM [facility] Eosinophils % Manual 6 1 - 6 % 10/25/2019 2:54 AM [facility] Platelet Estimate Decreased (A) Adequate 10/25/2019 2:54 AM [facility] Target Cells 1+(A) None 10/25/2019 2:54 AM [facility] Schistocytes Occasiona l(A) None 10/25/2019 2:54 AM [facility] Ovalocytes 1+(A) None 10/25/2019 2:54 AM [facility] Tear Drop Cells Few(A) None 0 2:54 AM [facility] Blood BLOOD SPECIMEN / Unknown Venipuncture / Unknown 10/25/2019 12:13 AM CDT 10/25/2019 12:13 AM CDT Tiffanie Nguyen BINDERY CUTTER [facility] - HEMATOLOG Y ORDERABLES [facility] [address] [place] [address] * PHOSPHORUS BLOOD (10/25/2019 12:13 AM CDT) Phosphorus 3.8 2.3 - 4.7 mg/dL 10/25/2019 12:38 AM T [facility] Blood BLOOD SPECIMEN / Unknown Venipuncture / Unknown 10/25/2019 12:13 AM CDT 10/25/2019 12:13 AM CDT Tiffanie Nguyen BINDERY CUTTER [facility] - CHEMISTRY ORDERABLES [facility] [address] [phone] * MAGNESIUM BLOOD (10/25/2019 12:13 AM CDT) Magnesium 2.0 1.6 - 2.6 mg/dL 10/25/2019 12:38 AM [facility] Blood BLOOD SPECIMEN / Unknown Venipuncture / Unknown 10/25/2019 12:13 AM CDT 10/25/2019 12:13 AM CDT Lara Patrick BINDERY CUTTER OPERATOR-[employer] LAB - CHEMISTRY ORDERABLES [address] [phone] * (ABNORMAL) COMPREHENSIVE METABOLIC PANEL (10/25/2019 12:13 AM CDT) Pathologist [facility] BUN 13 7 - 26 mg/dL 10/25/2019 12:38 AM [facility] Creatinine 0.9 0.6 - 1.2 mg/dL 10/25/2019 12:38 AM [facility] Sodium 138 136 - 145 mmol/L 10/25/2019 12:38 AM [facility] Potassium 4.4 3.5 - 4.5 mmol/L 10/25/2019 12:38 AM [facility] Chloride 105 98 - 107 mmol/L 10/25/2019 12:38 AM [facility] CO2 24 22 - 29 mmol/L 10/25/2019 12:38 AM [facility] Glucose 106 70 - 115 mg/dL 10/25/2019 12:38 AM [facility] Calcium 8.9 8.4 - 10.2 mg/dL 10/25/2019 12:38 AM [facility] Protein Total 5.7(L) 6.0 - 8.3 g/dL 10/25/2019 12:38 AM [facility] Albumin 3.0(L) 3.4 - 5.0 g/dL 10/25/2019 12:38 AM [facility] Bilirubin Total 0.3 0.2 - 1.2 mg/dL 10/25/2019 12:38 AM [facility] Alkaline Phosphatase 72 40 - 150 Units/L 10/25/2019 12:38 AM [facility] ALT 56(H) 0 - 55 Units/L 10/25/2019 12:38 AM [facility] AST 12 5 - 34 Units/L 10/25/2019 12:38 AM [facility] Anion Gap 13 8 - 18 10/25/2019 12:38 AM [facility] BUN/Creatinine Ratio 14 7 - 23 10/25/2019 12:38 AM [facility] Osmolality Calculated 287 270 - 300 mOsm/kg 10/25/2019 12:38 AM [facility] Albumin/Globulin Ratio 1.1 1.1 - 2.3 10/25/2019 12:38 AM [facility] eGFR >60 >60 mL/min/1.7 3 m2 10/25/2019 12:38 AM [facility] Blood BLOOD SPECIMEN / Unknown Venipuncture / Unknown 10/25/2019 12:13 AM CDT 10/25/2019 12:13 AM T Tiffanie Nguyen BINDERY CUTTER OPERATOR-[employer] LAB - CHEMISTRY ORDERABLES Performing Organization Address City/State/[facility] Co de Phone Number [facility] [address] [place] [address] * (ABNORMAL) CBC W AUTO DIFFERENTIAL (10/25/2019 12:13 AM [facility]) WBC 0.3(LL) 3.5 - 10.5 10? 3 /uL 10/25/2019 12:30 AM [facility] RBC 3.77(L) 4.30 - 5.70 10? 6 /uL 10/25/2019 12:30 AM [facility] Hemoglobin 10.7(L) 13.5 - 17.5 g/dL 10/25/2019 12:30 AM [facility] Hematocrit 31.6(L) 39.0 - 50.0 % 10/25/2019 12:30 AM [facility] MCV 83.8 81.0 - 97.0 fL 10/25/2019 12:30 AM [facility] MCH 28.4 28.0 - 34.0 pg 10/25/2019 12:30 AM [facility] MCHC 33.9 32.0 - 36.0 g/dL 10/25/2019 12:30 AM [facility] Platelet Count 32(L) 150 - 400 10? 3 /uL 10/25/2019 12:30 AM [facility] Comment:All CBC parameters h ave been checked. RDW-SD 48.9 36.0 - 50.0 fL 10/25/2019 12:30 AM [facility] RDW-CV 15.9(H) 11.2 - 14.8 % 10/25/2019 12:30 AM [facility] MPV 10/25/2019 12:30 AM [facility] Comment:Confirmed by repeat analysis. nRBC Absolute 0.00 0 10? 3 /uL 10/25/2019 12:30 AM [facility] nRBC Auto 0.0 0 /100 WBC 10/25/2019 12:30 AM [facility] Blood BLOOD SPECIMEN / Unknown Venipuncture / Unknown 10/25/2019 12:13 AM CDT 10/25/2019 12:13 AM CDT Tiffanie Nguyen BINDERY CUTTER OPERATOR-[employer] LAB - HEMATOLOG Y ORDERABLES [facility] [address] [place] [address] * CYTOMEGALOVIRUS (CMV) QUANTITATIVE PLASMA (10/25/2019 12:13 AM CDT) CMV Quant by PCR, Interp Not Detected Not Detected 10/28/2019 2:48 PM CDT [facility] Blood BLOOD SPECIMEN / Unknown Venipuncture / Unknown 10/25/2019 12:13 AM CDT 10/25/2019 12:13 AM CDT Narrative [facility] - 10/28/2019 2:48 PM CDT The CMV DNA analysis utilized [...] using an [place] FDA approved test methodology (Cliqset RealTime CMV). Rafaela Salgado BINDERY CUTTER OPERATOR-CLEAR COAT SPRAYER LAB - CHEMI STRY ORDERABLES [facility] MICROBIOLOGY [address] [place] [address] [place] [address], [facility] [phone] * (ABNORMAL) DIFFERENTIAL MANUAL (10/24/2019 12:15 AM CDT) WBC (corrected for NRBC) 0.3 10? 3 /uL 10/24/2019 2:37 AM [facility] Total Cell Count 100 10/24/2019 2:37 AM [facility] Neutrophils Absolute Manual 0.01(LL) 1.60 - 7.00 10? 3 /uL 10/24/2019 2:37 AM [facility] Comment:(BANDS+SEGS) x WBC = NEUT # (ANC) Checked and not called to [address] [place]. Lymphocyte Absolute Manual 0.25(L) 0.80 - 2.90 10? 3 /uL 10/24/2019 2:37 AM [facility] Eosinophils Absolute Manual 0.04 0.00 - 0.22 10? 3 /uL 10/24/2019 2:37 AM CDT [facility] Neutrophil % Manual 4(L) 30 - 60 % 10/24/2019 2:37 AM CDT [facility] Lymphocyte % Manual 84(H) 20 - 45 % 10/24/2019 2:37 AM CDT [facility] Eosinophils % Manual 12(H) 1 - 6 % 10/24/2019 2:37 AM CDT [facility] Platelet Estimate Decreased (A) Adequate 10/24/2019 2:37 AM T [facility] Target Cells 1+(A) None 10/24/2019 2:37 AM CDT [facility] Ovalocytes Occasiona l(A) None 10/24/2019 2:37 AM CDT [facility] Sravani Cells Occasiona l(A) None 10/24/2019 2:37 AM T [facility] Tear Drop Cells Few(A) None 0 2:37 AM CDT [facility] Blood BLOOD SPECIMEN / Unknown Venipuncture / Unknown 10/24/2019 12:15 AM CDT 10/24/2019 12:31 AM CDT Tiffanie Nguyen BINDERY CUTTER OPERATOR-[facility] LAB - HEMATOLOG Y ORDERABLES [address] [phone] * PHOSPHORUS BLOOD (10/24/2019 12:15 AM CDT) Phosphorus 4.0 2.3 - 4.7 mg/dL 10/24/2019 12:49 AM CDT [facility] Blood BLOOD SPECIMEN / Unknown Venipuncture / Unknown 10/24/2019 12:15 AM CDT 10/24/2019 12:31 AM CDT Tiffanie Nguyen BINDERY CUTTER [facility] - CHEMISTRY ORDERABLES [address] [phone] * MAGNESIUM BLOOD (10/24/2019 12:15 AM CDT) Magnesium 2.0 1.6 - 2.6 mg/dL 10/24/2019 12:49 AM [facility] Blood BLOOD SPECIMEN / Unknown Venipuncture / Unknown 10/24/2019 12:15 AM CDT 10/24/2019 12:31 AM CDT Tiffanie Nguyen BINDERY CUTTER OPERATOR-CLE[employer] LAB - CHEMISTRY ORDERABLES Performing Organization Address City/State/[facility] Co de Phone Number [address] [phone] * (ABNORMAL) COMPREHENSIVE METABOLIC PANEL (10/24/2019 12:15 AM CDT) Pathologist [facility] BUN 16 7 - 26 mg/dL 10/24/2019 12:49 AM [facility] Creatinine 0.8 0.6 - 1.2 mg/dL 10/24/2019 12:49 AM [facility] Sodium 139 136 - 145 mmol/L 10/24/2019 12:49 AM [facility] Potassium 4.2 3.5 - 4.5 mmol/L 10/24/2019 12:49 AM [facility] Chloride 107 98 - 107 mmol/L 10/24/2019 12:49 AM [facility] CO2 22 22 - 29 mmol/L 10/24/2019 12:49 AM [facility] Glucose 96 70 - 115 mg/dL 10/24/2019 12:49 AM [facility] Calcium 8.6 8.4 - 10.2 mg/dL 10/24/2019 12:49 AM [facility] Protein Total 5.1(L) 6.0 - 8.3 g/dL 10/24/2019 12:49 AM [facility] Albumin 3.1(L) 3.4 - 5.0 g/dL 10/24/2019 12:49 AM [facility] Bilirubin Total 0.2 0.2 - 1.2 mg/dL 10/24/2019 12:49 AM [facility] Alkaline Phosphatase 64 40 - 150 Units/L 10/24/2019 12:49 AM [facility] ALT 68(H) 0 - 55 Units/L 10/24/2019 12:49 AM [facility] AST 14 5 - 34 Units/L 10/24/2019 12:49 AM [facility] Anion Gap 14 8 - 18 10/24/2019 12:49 AM [facility] BUN/Creatinine Ratio 20 7 - 23 10/24/2019 12:49 AM [facility] Osmolality Calculated 289 270 - 300 mOsm/kg 10/24/2019 12:49 AM [facility] Albumin/Globulin Ratio 1.6 1.1 - 2.3 10/24/2019 12:49 AM [facility] eGFR >60 >60 mL/min/1.7 3 m2 10/24/2019 12:49 AM [facility] Blood BLOOD SPECIMEN / Unknown Venipuncture / Unknown 10/24/2019 12:15 AM CDT 10/24/2019 12:31 AM CDT Tiffanie Nguyen [employer] [facility] - CHEMISTRY ORDERABLES Performing Organization Address City/State/[facility] Co de Phone Number [address] [phone] * (ABNORMAL) CBC W AUTO DIFFERENTIAL (10/24/2019 12:15 AM CDT) WBC 0.3(LL) 3.5 - 10.5 10? 3 /uL 10/24/2019 12:40 AM [facility] RBC 3.57(L) 4.30 - 5.70 10? 6 /uL 10/24/2019 12:40 AM [facility] Hemoglobin 10.3(L) 13.5 - 17.5 g/dL 10/24/2019 12:40 AM [facility] Hematocrit 30.4(L) 39.0 - 50.0 % 10/24/2019 12:40 AM [facility] MCV 85.2 81.0 - 97.0 fL 10/24/2019 12:40 AM [facility] MCH 28.9 28.0 - 34.0 pg 10/24/2019 12:40 AM [facility] MCHC 33.9 32.0 - 36.0 g/dL 10/24/2019 12:40 AM CDT [facility] Platelet Count 75(L) 150 - 400 10? 3 /uL 10/24/2019 12:40 AM CDT [facility] RDW-SD 49.1 36.0 - 50.0 fL 10/24/2019 12:40 AM CDT [facility] RDW-CV 15.5(H) 11.2 - 14.8 % 10/24/2019 12:40 AM CDT [facility] MPV 11.7 9.3 - 12.8 fL 10/24/2019 12:40 AM CDT [facility] nRBC Absolute 0.00 0 10? 3 /uL 10/24/2019 12:40 AM CDT [facility] nRBC Auto 0.0 0 /100 WBC 10/24/2019 12:40 AM CDT [facility] Blood BLOOD SPECIMEN / Unknown Venipuncture / Unknown 10/24/2019 12:15 AM CDT 10/24/2019 12:31 AM CDT Tiffanie Nguyen [employer] [facility] - HEMATOLOG Y ORDERABLES Performing Organization Address City/State/[facility] Co de Phone Number [address] [phone] * XR CHEST 1VW PORTABLE (10/23/2019 9:24 PM CDT) Anatomical Region Laterality Modality Chest Radiographic Chayito ging 10/24/2019 6:44 AM CDT Impressions 10/25/2019 10:45 AM CDT FINDINGS/IMPRESSION: There has been interval removal of a right internal jugular approach port catheter. There has been interval placement of a left internal jugular approach central venous catheter with the tip superimposing the superior vena cava. The lungs are clear. There is no focal consolidation, pleural effusion, or pneumothorax. The cardiomediastinal silhouette is normal. The visible osseous thorax is intact. Dictated by Fidel Arrieta MD (vice president for instruction). This report was approved ??by Fidel Arrieta M.D. ?? on 10/24/2019 11:09 AM . I, Dr. GRANT ORTEGA M.D. have personally reviewed and interpreted this examination/study. This report was electronically signed by GRANT ORTEGA M.D. ??on 10/25/2019 10:45 AM . Narrative 10/25/2019 10:45 AM CDT EXAMINATION: XR CHEST 1VW PORTABLE HISTORY: C83.30: Diffuse large B-cell lymphoma, unspecified body region R06.2: Expiratory wheezing on right side of chest COMPARISON: Comparison is made with a study from 09/09/2019. Procedure Note Grant Ortega MD - 10/25/2019 EXAMINATION: XR CHEST 1VW PORTABLE HISTORY: C83.30: Diffuse large B-cell lymphoma, unspecified body region R06.2: Expiratory wheezing on right side of chest COMPARISON: Comparison is made with a study from 09/09/2019. FINDINGS/IMPRESSION: There has been interval removal of a right internal jugular approachport catheter. There has been interval placement of a left internal jugular approach central venous catheter with the tip superimposing the superior vena cava. The lungs are clear. There is no focal consolidation, pleural effusion,or pneumothorax. The cardiomediastinal silhouette is normal. The visible osseous thorax is intact. Dictated by Fidel Arrieta MD (vice president for instruction). This report was approved by Fidel Arrieta M.D. on 10/24/2019 11:09 AM. I, Dr. GRANT ORTEGA M.D. have personally reviewed and interpreted this examination/study. This report was electronically signed by GRANT ORTEGA M.D. on 10/25/2019 10:45 AM . Rafaela Salgado [facility] DIAGNOSTIC IMAGING ORDERABLES * C DIFFICILE GDH AG + TOXIN A+B (10/23/2019 6:08 AM CDT) GDH Antigen Negative Negative, Invalid 10/23/2019 10:40 PM CDT [facility] MICROBIOLOGY C difficile Toxin A + B Negative Negative, Invalid 10/23/2019 10:40 PM CDT [facility] MICROBIOLOGY Interpretation C difficile Negative for toxigenic C. difficile Negative for toxigenic C. difficile 10/23/2019 10:40 PM CDT [facility] MICROBIOLOGY Stool STOOL SPECIMEN / Unknown Collection / Unknown 10/23/2019 6:08 AM CDT 10/23/2019 6:08 AM CDT Rafaela Salgado [facility] - MICRO BIOLOGY ORDERABLES [facility] MICROBIOLOGY [address] [place] [address], [facility] [phone] * PHOSPHORUS BLOOD (10/23/2019 12:31 AM CDT) Phosphorus 4.0 2.3 - 4.7 mg/dL 10/23/2019 12:54 AM CDT [facility] Blood BLOOD SPECIMEN / Unknown Venipuncture / Unknown 10/23/2019 12:31 AM CDT 10/23/2019 12:31 AM CDT Tiffanie Nguyen [facility] - CHEMISTRY ORDERABLES [address] [phone] * MAGNESIUM BLOOD (10/23/2019 12:31 AM CDT) Magnesium 2.0 1.6 - 2.6 mg/dL 10/23/2019 12:54 AM CDT [facility] Blood BLOOD SPECIMEN / Unknown Venipuncture / Unknown 10/23/2019 12:31 AM CDT 10/23/2019 12:31 AM CDT Tiffanie Nguyen [facility] - CHEMISTRY ORDERABLES [address] [phone] * (ABNORMAL) COMPREHENSIVE METABOLIC PANEL (10/23/2019 12:31 AM CDT) BUN 20 7 - 26 mg/dL 10/23/2019 12:54 AM CDT [facility] Creatinine 1.0 0.6 - 1.2 mg/dL 10/23/2019 12:54 AM CDT [facility] Sodium 143 136 - 145 mmol/L 10/23/2019 12:54 AM [facility] Potassium 4.3 3.5 - 4.5 mmol/L 10/23/2019 12:54 AM [facility] Chloride 109(H) 98 - 107 mmol/L 10/23/2019 12:54 AM [facility] CO2 21(L) 22 - 29 mmol/L 10/23/2019 12:54 AM [facility] Glucose 86 70 - 115 mg/dL 10/23/2019 12:54 AM [facility] Calcium 8.0(L) 8.4 - 10.2 mg/dL 10/23/2019 12:54 AM [facility] Protein Total 5.1(L) 6.0 - 8.3 g/dL 10/23/2019 12:54 AM [facility] Albumin 3.0(L) 3.4 - 5.0 g/dL 10/23/2019 12:54 AM [facility] Bilirubin Total 0.4 0.2 - 1.2 mg/dL 10/23/2019 12:54 AM [facility] Alkaline Phosphatase 64 40 - 150 Units/L 10/23/2019 12:54 AM [facility] ALT 77(H) 0 - 55 Units/L 10/23/2019 12:54 AM [facility] AST 19 5 - 34 Units/L 10/23/2019 12:54 AM [facility] Anion Gap 17 8 - 18 10/23/2019 12:54 AM [facility] BUN/Creatinine Ratio 20 7 - 23 10/23/2019 12:54 AM [facility] Osmolality Calculated 298 270 - 300 mOsm/kg 10/23/2019 12:54 AM [facility] Albumin/Globulin Ratio 1.4 1.1 - 2.3 10/23/2019 12:54 AM [facility] eGFR >60 >60 mL/min/1.7 3 m2 10/23/2019 12:54 AM [facility] Blood BLOOD SPECIMEN / Unknown Venipuncture / Unknown 10/23/2019 12:31 AM CDT 10/23/2019 12:31 AM CDT Tiffanie Nguyen [facility] CHEMISTRY ORDERABLES [facility] [address] [phone] * (ABNORMAL) DIFFERENTIAL MANUAL (10/23/2019 12:30 AM CDT) WBC (corrected for NRBC) 0.6 10? 3 /uL 10/23/2019 4:05 AM [facility] Total Cell Count 100 10/23/2019 4:05 AM [facility] Neutrophils Absolute Manual 0.31(LL) 1.60 - 7.00 10? 3 /uL 10/23/2019 4:05 AM [facility] Comment:(BANDS+SEGS) x WBC = NEUT # (ANC) Lymphocyte Absolute Manual 0.13(L) 0.80 - 2.90 10? 3 /uL 10/23/2019 4:05 AM [facility] Eosinophils Absolute Manual 0.16 0.00 - 0.22 10? 3 /uL 10/23/2019 4:05 AM [facility] Band % Manual 1 0 - 10 % 10/23/2019 4:05 AM [facility] Neutrophil % Manual 51 30 - 60 % 10/23/2019 4:05 AM [facility] Lymphocyte % Manual 21 20 - 45 % 10/23/2019 4:05 AM [facility] Eosinophils % Manual 27(H) 1 - 6 % 10/23/2019 4:05 AM [facility] Platelet Estimate Adequate Adequate 10/23/2019 4:05 AM [facility] Target Cells 1+(A) None 10/23/2019 4:05 AM [facility] Blood BLOOD SPECIMEN / Unknown Venipuncture / Unknown 10/23/2019 12:30 AM CDT 10/23/2019 12:31 AM T Narrative [facility] - 10/23/2019 4:05 AM CDT Differential done on buffy coat smear. Tiffanie Alvess [facility] - HEMATOLOG Y ORDERABLES [facility] [address] [phone] * (ABNORMAL) CBC W AUTO DIFFERENTIAL (10/23/2019 12:30 AM T) WBC 0.6(LL) 3.5 - 10.5 10? 3 /uL 10/23/2019 1:34 AM [facility] Comment:Checked and not call ed to [address]. RBC 3.47(L) 4.30 - 5.70 10? 6 /uL 10/23/2019 1:34 AM [facility] Hemoglobin 10.1(L) 13.5 - 17.5 g/dL 10/23/2019 1:34 AM [facility] Hematocrit 29.7(L) 39.0 - 50.0 % 10/23/2019 1:34 AM [facility] MCV 85.6 81.0 - 97.0 fL 10/23/2019 1:34 AM [facility] MCH 29.1 28.0 - 34.0 pg 10/23/2019 1:34 AM [facility] MCHC 34.0 32.0 - 36.0 g/dL 10/23/2019 1:34 AM [facility] Platelet Count 118(L) 150 - 400 10? 3 /uL 10/23/2019 1:34 AM [facility] RDW-SD 49.7 36.0 - 50.0 fL 10/23/2019 1:34 AM [facility] RDW-CV 16.0(H) 11.2 - 14.8 % 10/23/2019 1:34 AM [facility] MPV 11.6 9.3 - 12.8 fL 10/23/2019 1:34 AM [facility] nRBC Absolute 0.00 0 10? 3 /uL 10/23/2019 1:34 AM [facility] nRBC Auto 0.0 0 /100 WBC 10/23/2019 1:34 AM [facility] Blood BLOOD SPECIMEN / Unknown Venipuncture / Unknown 10/23/2019 12:30 AM CDT 10/23/2019 12:31 AM CDT Tiffanie Nguyen [employer] O[employer]ATOR-[employer] [employer] LAB - HEMATOLOG Y ORDERABLES [address] [phone] * (ABNORMAL) DIFFERENTIAL MANUAL (10/22/2019 12:15 AM CDT) WBC (corrected for NRBC) 2.4 10? 3 /uL 10/22/2019 1:46 AM [facility] Total Cell Count 100 10/22/2019 1:46 AM [facility] Neutrophils Absolute Manual 2.09 1.60 - 7.00 10? 3 /uL 10/22/2019 1:46 AM [facility] Comment:(BANDS+SEGS) x WBC = NEUT # (ANC) Lymphocyte Absolute Manual 0.22(L) 0.80 - 2.90 10? 3 /uL 10/22/2019 1:46 AM [facility] Eosinophils Absolute Manual 0.10 0.00 - 0.22 10? 3 /uL 10/22/2019 1:46 AM [facility] Neutrophil % Manual 87(H) 30 - 60 % 10/22/2019 1:46 AM [facility] Lymphocyte % Manual 9(L) 20 - 45 % 10/22/2019 1:46 AM [facility] Eosinophils % Manual 4 1 - 6 % 10/22/2019 1:46 AM [facility] Platelet Estimate Adequate Adequate 10/22/2019 1:46 AM [facility] Target Cells Occasional(A ) None 10/22/2019 1:46 AM [facility] Ovalocytes Occasional(A ) None 10/22/2019 1:46 AM [facility] Blood BLOOD SPECIMEN / Unknown Venipuncture / Unknown 10/22/2019 12:15 AM CDT 10/22/2019 12:47 AM CDT Tiffanie Nguyen [employer] OPERATOR-[employer] [employer] LAB - HEMATOLOG Y ORDERABLES [address] [phone] * PHOSPHORUS BLOOD (10/22/2019 12:15 AM CDT) Phosphorus 3.6 2.3 - 4.7 mg/dL 10/22/2019 1:09 AM CDT [facility] Blood BLOOD SPECIMEN / Unknown Venipuncture / Unknown 10/22/2019 12:15 AM CDT 10/22/2019 12:48 AM CDT Tiffanie Seymour Patrick [facility] LAB - CHEMISTRY ORDERABLES [address] [phone] * MAGNESIUM BLOOD (10/22/2019 12:15 AM CDT) Pathologist [facility] Magnesium 2.1 1.6 - 2.6 mg/dL 10/22/2019 1:09 AM CDT [facility] Blood BLOOD SPECIMEN / Unknown Venipuncture / Unknown 10/22/2019 12:15 AM CDT 10/22/2019 12:48 AM CDT Tiffanie Seymour Patrick [facility] - CHEMISTRY ORDERABLES [address] [phone] * (ABNORMAL) COMPREHENSIVE METABOLIC PANEL (10/22/2019 12:15 AM CDT) BUN 21 7 - 26 mg/dL 10/22/2019 1:09 AM CDT [facility] Creatinine 0.9 0.6 - 1.2 mg/dL 10/22/2019 1:09 AM T [facility] Sodium 141 136 - 145 mmol/L 10/22/2019 1:09 AM T [facility] Potassium 4.3 3.5 - 4.5 mmol/L 10/22/2019 1:09 AM T [facility] Chloride 105 98 - 107 mmol/L 10/22/2019 1:09 AM T [facility] CO2 27 22 - 29 mmol/L 10/22/2019 1:09 AM [facility] Glucose 121(H) 70 - 115 mg/dL 10/22/2019 1:09 AM [facility] Calcium 8.9 8.4 - 10.2 mg/dL 10/22/2019 1:09 AM [facility] Protein Total 5.8(L) 6.0 - 8.3 g/dL 10/22/2019 1:09 AM [facility] Albumin 3.4 3.4 - 5.0 g/dL 10/22/2019 1:09 AM [facility] Bilirubin Total 0.2 0.2 - 1.2 mg/dL 10/22/2019 1:09 AM [facility] Alkaline Phosphatase 73 40 - 150 Units/L 10/22/2019 1:09 AM [facility] ALT 103(H) 0 - 55 Units/L 10/22/2019 1:09 AM [facility] AST 23 5 - 34 Units/L 10/22/2019 1:09 AM [facility] Anion Gap 13 8 - 18 10/22/2019 1:09 AM [facility] BUN/Creatinine Ratio 23 7 - 23 10/22/2019 1:09 AM [facility] Osmolality Calculated 296 270 - 300 mOsm/kg 10/22/2019 1:09 AM [facility] Albumin/Globulin Ratio 1.4 1.1 - 2.3 10/22/2019 1:09 AM [facility] eGFR >60 >60 mL/min/1.7 3 m2 10/22/2019 1:09 AM [facility] Blood BLOOD SPECIMEN / Unknown Venipuncture / Unknown 10/22/2019 12:15 AM CDT 10/22/2019 12:48 AM CDT Tiffanie Nguyen [employer] O[employer] LAB - CHEMISTRY ORDERABLES [address] [phone] * (ABNORMAL) CBC W AUTO DIFFERENTIAL (10/22/2019 12:15 AM CDT) WBC 2.4(L) 3.5 - 10.5 10? 3 /uL 10/22/2019 1:09 AM [facility] Comment:Confirmed by repeat analysis. RBC 3.60(L) 4.30 - 5.70 10? 6 /uL 10/22/2019 1:09 AM [facility] Hemoglobin 10.4(L) 13.5 - 17.5 g/dL 10/22/2019 1:09 AM [facility] Hematocrit 30.8(L) 39.0 - 50.0 % 10/22/2019 1:09 AM [facility] MCV 85.6 81.0 - 97.0 fL 10/22/2019 1:09 AM [facility] MCH 28.9 28.0 - 34.0 pg 10/22/2019 1:09 AM [facility] MCHC 33.8 32.0 - 36.0 g/dL 10/22/2019 1:09 AM [facility] Platelet Count 169 150 - 400 10? 3 /uL 10/22/2019 1:09 AM [facility] RDW-SD 49.4 36.0 - 50.0 fL 10/22/2019 1:09 AM [facility] RDW-CV 15.9(H) 11.2 - 14.8 % 10/22/2019 1:09 AM [facility] MPV 10.7 9.3 - 12.8 fL 10/22/2019 1:09 AM [facility] nRBC Absolute 0.00 0 10? 3 /uL 10/22/2019 1:09 AM [facility] nRBC Auto 0.0 0 /100 WBC 10/22/2019 1:09 AM [facility] Blood BLOOD SPECIMEN / Unknown Venipuncture / Unknown 10/22/2019 12:15 AM CDT 10/22/2019 12:47 AM CDT Tiffanie Nguyen [employer] OPERATOR[facility] LAB - HEMATOLOG Y ORDERABLES [facility] [address] [phone] * (ABNORMAL) DIFFERENTIAL MANUAL (10/20/2019 11:59 PM CDT) WBC (corrected for NRBC) 7.6 10? 3 /uL 10/21/2019 2:43 AM CDT [facility] Total Cell Count 100 10/21/2019 2:43 AM T [facility] Neutrophils Absolute Manual 7.45(H) 1.60 - 7.00 10? 3 /uL 10/21/2019 2:43 AM T [facility] Comment:(BANDS+SEGS) x WBC = NEUT # (ANC) Lymphocyte Absolute Manual 0.08(L) 0.80 - 2.90 10? 3 /uL 10/21/2019 2:43 AM CDT [facility] Eosinophils Absolute Manual 0.08 0.00 - 0.22 10? 3 /uL 10/21/2019 2:43 AM [facility] Band % Manual 1 0 - 10 % 10/21/2019 2:43 AM T [facility] Neutrophil % Manual 97(H) 30 - 60 % 10/21/2019 2:43 AM T [facility] Lymphocyte % Manual 1(L) 20 - 45 % 10/21/2019 2:43 AM [facility] Eosinophils % Manual 1 1 - 6 % 10/21/2019 2:43 AM [facility] Platelet Estimate Adequate Adequate 10/21/2019 2:43 AM [facility] Target Cells 1+(A) None 10/21/2019 2:43 AM [facility] Ovalocytes 1+(A) None 10/21/2019 2:43 AM [facility] Tear Drop Cells 1+(A) None 0 2:43 AM [facility] Blood BLOOD SPECIMEN / Unknown Venipuncture / Unknown 10/20/2019 11:59 PM CDT 10/21/2019 12:31 AM CDT Tiffanie Nguyen [employer] LAB - HEMATOLOG Y ORDERABLES [address] [phone] * PHOSPHORUS BLOOD (10/20/2019 11:59 PM CDT) Phosphorus 3.2 2.3 - 4.7 mg/dL 10/21/2019 1:05 AM [facility] Blood BLOOD SPECIMEN / Unknown Venipuncture / Unknown 10/20/2019 11:59 PM CDT 10/21/2019 12:31 AM CDT Tiffanie Nguyen [employer] O[employer]ATOR[facility] LAB - CHEMISTRY ORDERABLES [address] [phone] * MAGNESIUM BLOOD (10/20/2019 11:59 PM CDT) Pathologist [facility] Magnesium 2.2 1.6 - 2.6 mg/dL 10/21/2019 1:05 AM [facility] Blood BLOOD SPECIMEN / Unknown Venipuncture / Unknown 10/20/2019 11:59 PM CDT 10/21/2019 12:31 AM CDT Tiffanie Nguyen [employer] O[employer] LAB - CHEMISTRY ORDERABLES [address] [phone] * (ABNORMAL) COMPREHENSIVE METABOLIC PANEL (10/20/2019 11:59 PM CDT) Pathologist [facility] BUN 27(H) 7 - 26 mg/dL 10/21/2019 1:05 AM [facility] Creatinine 1.0 0.6 - 1.2 mg/dL 10/21/2019 1:05 AM [facility] Sodium 141 136 - 145 mmol/L 10/21/2019 1:05 AM [facility] Potassium 4.3 3.5 - 4.5 mmol/L 10/21/2019 1:05 AM [facility] Chloride 105 98 - 107 mmol/L 10/21/2019 1:05 AM [facility] CO2 27 22 - 29 mmol/L 10/21/2019 1:05 AM [facility] Glucose 131(H) 70 - 115 mg/dL 10/21/2019 1:05 AM [facility] Calcium 8.4 8.4 - 10.2 mg/dL 10/21/2019 1:05 AM [facility] Protein Total 5.3(L) 6.0 - 8.3 g/dL 10/21/2019 1:05 AM [facility] Albumin 3.2(L) 3.4 - 5.0 g/dL 10/21/2019 1:05 AM [facility] Bilirubin Total 0.2 0.2 - 1.2 mg/dL 10/21/2019 1:05 AM [facility] Alkaline Phosphatase 77 40 - 150 Units/L 10/21/2019 1:05 AM [facility] ALT 122(H) 0 - 55 Units/L 10/21/2019 1:05 AM [facility] AST 50(H) 5 - 34 Units/L 10/21/2019 1:05 AM [facility] Anion Gap 13 8 - 18 10/21/2019 1:05 AM [facility] BUN/Creatinine Ratio 27(H) 7 - 23 10/21/2019 1:05 AM [facility] Osmolality Calculated 299 270 - 300 mOsm/kg 10/21/2019 1:05 AM [facility] Albumin/Globulin Ratio 1.5 1.1 - 2.3 10/21/2019 1:05 AM [facility] eGFR >60 >60 mL/min/1.7 3 m2 10/21/2019 1:05 AM [facility] Blood BLOOD SPECIMEN / Unknown Venipuncture / Unknown 10/20/2019 11:59 PM CDT 10/21/2019 12:31 AM CDT Tiffanie Nguyen [employer] OPERATOR-[employer] LAB - CHEMISTRY ORDERABLES [facility] [address] [phone] * (ABNORMAL) CBC W AUTO DIFFERENTIAL (10/20/2019 11:59 PM CDT) WBC 7.6 3.5 - 10.5 10? 3 /uL 10/21/2019 12:35 AM [facility] RBC 3.42(L) 4.30 - 5.70 10? 6 /uL 10/21/2019 12:35 AM [facility] Hemoglobin 10.0(L) 13.5 - 17.5 g/dL 10/21/2019 12:35 AM [facility] Hematocrit 29.2(L) 39.0 - 50.0 % 10/21/2019 12:35 AM [facility] MCV 85.4 81.0 - 97.0 fL 10/21/2019 12:35 AM [facility] MCH 29.2 28.0 - 34.0 pg 10/21/2019 12:35 AM [facility] MCHC 34.2 32.0 - 36.0 g/dL 10/21/2019 12:35 AM [facility] Platelet Count 204 150 - 400 10? 3 /uL 10/21/2019 12:35 AM [facility] RDW-SD 49.2 36.0 - 50.0 fL 10/21/2019 12:35 AM [facility] RDW-CV 15.7(H) 11.2 - 14.8 % 10/21/2019 12:35 AM [facility] MPV 10.5 9.3 - 12.8 fL 10/21/2019 12:35 AM [facility] nRBC Absolute 0.00 0 10? 3 /uL 10/21/2019 12:35 AM [facility] nRBC Auto 0.0 0 /100 WBC 10/21/2019 12:35 AM [facility] Blood BLOOD SPECIMEN / Unknown Venipuncture / Unknown 10/20/2019 11:59 PM CDT 10/21/2019 12:31 AM CDT Tiffanie Nguyen [employer] OPERATOR-[employer] LAB - HEMATOLOG Y ORDERABLES [address] [phone] * (ABNORMAL) DIFFERENTIAL MANUAL (10/20/2019 12:41 AM CDT) WBC (corrected for NRBC) 7.4 10? 3 /uL 10/20/2019 1:40 AM [facility] Total Cell Count 100 10/20/19 20 1:40 AM [facility] Neutrophils Absolute Manual 7.25(H) 1.60 - 7.00 10? 3 /uL 10/20/2019 1:40 AM [facility] Comment:(BANDS+SEGS) x WBC = NEUT # (ANC) Lymphocyte Absolute Manual 0.15(L) 0.80 - 2.90 10? 3 /uL 10/20/2019 1:40 AM [facility] Neutrophil % Manual 98(H) 30 - 60 % 10/20/2019 1:40 AM [facility] Lymphocyte % Manual 2(L) 20 - 45 % 10/20/2019 1:40 AM [facility] Platelet Estimate Adequate Adequate 10/20/2019 1:40 AM [facility] Anisocytosis 1+(A) None 10/20/2019 1:40 AM [facility] Target Cells 1+(A) None 10/20/2019 1:40 AM [facility] Ovalocytes 1+(A) None 10/20/2019 1:40 AM [facility] Blood BLOOD SPECIMEN / Unknown Venipuncture / Unknown 10/20/2019 12:41 AM CDT 10/20/2019 1:04 AM CDT Tiffanie Nguyen [facility] - HEMATOLOG Y ORDERABLES Performing Organization Address City/State/[facility] Co de Phone Number [address] [phone] * PHOSPHORUS BLOOD (10/20/2019 12:41 AM CDT) Phosphorus 4.4 2.3 - 4.7 mg/dL 10/20/2019 1:26 AM [facility] Blood BLOOD SPECIMEN / Unknown Venipuncture / Unknown 10/20/2019 12:41 AM CDT 10/20/2019 1:05 AM CDT Tiffanie Nguyen B[employer] OPERATOR-[facility] LAB - CHEMISTRY ORDERABLES [address] [phone] * MAGNESIUM BLOOD (10/20/2019 12:41 AM CDT) Pathologist [facility] Magnesium 2.2 1.6 - 2.6 mg/dL 10/20/2019 1:26 AM [facility] Blood BLOOD SPECIMEN / Unknown Venipuncture / Unknown 10/20/2019 12:41 AM CDT 10/20/2019 1:05 AM CDT Tiffanie Seymour Patrick [employer] OPERATOR[facility] LAB - CHEMISTRY ORDERABLES Performing Organization Address [facility]/State/ZIP Co de Phone Number [address] [phone] * (ABNORMAL) COMPREHENSIVE METABOLIC PANEL (10/20/2019 12:41 AM CDT) [facility] BUN 25 7 - 26 mg/dL 10/20/2019 1:26 AM [facility] Creatinine 0.9 0.6 - 1.2 mg/dL 10/20/2019 1:26 AM [facility] Sodium 141 136 - 145 mmol/L 10/20/2019 1:26 AM [facility] Potassium 4.5 3.5 - 4.5 mmol/L 10/20/2019 1:26 AM [facility] Chloride 101 98 - 107 mmol/L 10/20/2019 1:26 AM [facility] CO2 30(H) 22 - 29 mmol/L 10/20/2019 1:26 AM [facility] Glucose 116(H) 70 - 115 mg/dL 10/20/2019 1:26 AM [facility] Calcium 9.1 8.4 - 10.2 mg/dL 10/20/2019 1:26 AM [facility] Protein Total 5.9(L) 6.0 - 8.3 g/dL 10/20/2019 1:26 AM [facility] Albumin 3.5 3.4 - 5.0 g/dL 10/20/2019 1:26 AM [facility] Bilirubin Total 0.4 0.2 - 1.2 mg/dL 10/20/2019 1:26 AM [facility] Alkaline Phosphatase 80 40 - 150 Units/L 10/20/2019 1:26 AM [facility] ALT 117(H) 0 - 55 Units/L 10/20/2019 1:26 AM [facility] AST 28 5 - 34 Units/L 10/20/2019 1:26 AM [facility] Anion Gap 15 8 - 18 10/20/2019 1:26 AM [facility] BUN/Creatinine Ratio 28(H) 7 - 23 10/20/2019 1:26 AM [facility] Osmolality Calculated 297 270 - 300 mOsm/kg 10/20/2019 1:26 AM [facility] Albumin/Globulin Ratio 1.5 1.1 - 2.3 10/20/2019 1:26 AM [facility] eGFR >60 >60 mL/min/1.7 3 m2 10/20/2019 1:26 AM [facility] Blood BLOOD SPECIMEN / Unknown Venipuncture / Unknown 10/20/2019 12:41 AM CDT 10/20/2019 1:05 AM T Tiffanie Nguyen BINDERY CUTTER OPERATOR-[employer] LAB - CHEMISTRY ORDERABLES Performing Organization Address [facility]/State/[facility] Co de Phone Number [address] [phone] * (ABNORMAL) CBC W AUTO DIFFERENTIAL (10/20/2019 12:41 AM CDT) WBC 7.4 3.5 - 10.5 10? 3 /uL 10/20/2019 1:09 AM [facility] RBC 3.84(L) 4.30 - 5.70 10? 6 /uL 10/20/2019 1:09 AM [facility] Hemoglobin 11.2(L) 13.5 - 17.5 g/dL 10/20/2019 1:09 AM [facility] Hematocrit 32.6(L) 39.0 - 50.0 % 10/20/2019 1:09 AM [facility] MCV 84.9 81.0 - 97.0 fL 10/20/2019 1:09 AM CDT [facility] MCH 29.2 28.0 - 34.0 pg 10/20/2019 1:09 AM CDT [facility] MCHC 34.4 32.0 - 36.0 g/dL 10/20/2019 1:09 AM CDT [facility] Platelet Count 272 150 - 400 10? 3 /uL 10/20/2019 1:09 AM CDT [facility] RDW-SD 48.2 36.0 - 50.0 fL 10/20/2019 1:09 AM CDT [facility] RDW-CV 15.6(H) 11.2 - 14.8 % 10/20/2019 1:09 AM CDT [facility] MPV 10.9 9.3 - 12.8 fL 10/20/2019 1:09 AM CDT [facility] nRBC Absolute 0.00 0 10? 3 /uL 10/20/2019 1:09 AM CDT [facility] nRBC Auto 0.0 0 /100 WBC 10/20/2019 1:09 AM CDT [facility] Blood BLOOD SPECIMEN / Unknown Venipuncture / Unknown 10/20/2019 12:41 AM CDT 10/20/2019 1:04 AM CDT Tiffanie Nguyen BINDERY CUTTER OPERATOR-CLEAR [employer]AT SPRAYER LAB - HEMATOLOG Y ORDERABLES Performing Organization Address City/State/[facility] Co de Phone Number [facility] [address] [place] [address] * CYTOMEGALOVIRUS (CMV) QUANTITATIVE PLASMA (10/20/2019 12:41 AM CDT) CMV Quant by PCR, Interp Not Detected Not Detected 10/20/2019 12:59 PM CDT [facility] Blood BLOOD SPECIMEN / Unknown Venipuncture / Unknown 10/20/2019 12:41 AM CDT 10/20/2019 1:05 AM CDT Narrative [facility] - 10/20/2019 12:59 PM CDT The CMV DNA analysis utilized [...] using an [place] FDA approved test methodology (Cliqset RealTime CMV). Dana Lala BINDERY CUTTER OPERATOR-[employer] TEACHER LAB - CHEMIS TRY ORDERABLES [facility] [address] [phone] * PHOSPHORUS BLOOD (10/19/2019 12:21 AM CDT) Phosphorus 3.3 2.3 - 4.7 mg/dL 10/19/2019 1:05 AM CDT [facility] Blood BLOOD SPECIMEN / Unknown Venipuncture / Unknown 10/19/2019 12:21 AM CDT 10/19/2019 12:34 AM CDT Tiffanie Nguyen BINDERY CUTTER OPERATOR-CLEAR [employer]AT SPRAYER LAB - CHEMISTRY ORDERABLES [facility] [address] [place] [address], [facility] [phone] * MAGNESIUM BLOOD (10/19/2019 12:21 AM CDT) Magnesium 2.1 1.6 - 2.6 mg/dL 10/19/2019 1:05 AM [facility] Blood BLOOD SPECIMEN / Unknown Venipuncture / Unknown 10/19/2019 12:21 AM CDT 10/19/2019 12:34 AM CDT Tiffanie Nguyen BINDERY CUTTER OPERATOR-CLEAR [employer]AT SPRAYER LAB - CHEMISTRY ORDERABLES Performing Organization Address City/State/[facility] Co de Phone Number [address] [phone] * (ABNORMAL) COMPREHENSIVE METABOLIC PANEL (10/19/2019 12:21 AM CDT) Pathologist [facility] BUN 21 7 - 26 mg/dL 10/19/2019 1:05 AM [facility] Creatinine 0.8 0.6 - 1.2 mg/dL 10/19/2019 1:05 AM [facility] Sodium 140 136 - 145 mmol/L 10/19/2019 1:05 AM [facility] Potassium 4.4 3.5 - 4.5 mmol/L 10/19/2019 1:05 AM [facility] Chloride 102 98 - 107 mmol/L 10/19/2019 1:05 AM [facility] CO2 28 22 - 29 mmol/L 10/19/2019 1:05 AM [facility] Glucose 112 70 - 115 mg/dL 10/19/2019 1:05 AM [facility] Calcium 9.3 8.4 - 10.2 mg/dL 10/19/2019 1:05 AM [facility] Protein Total 5.7(L) 6.0 - 8.3 g/dL 10/19/2019 1:05 AM [facility] Albumin 3.5 3.4 - 5.0 g/dL 10/19/2019 1:05 AM [facility] Bilirubin Total 0.2 0.2 - 1.2 mg/dL 10/19/2019 1:05 AM [facility] Alkaline Phosphatase 82 40 - 150 Units/L 10/19/2019 1:05 AM [facility] ALT 137(H) 0 - 55 Units/L 10/19/2019 1:05 AM [facility] AST 56(H) 5 - 34 Units/L 10/19/2019 1:05 AM [facility] Anion Gap 14 8 - 18 10/19/2019 1:05 AM [facility] BUN/Creatinine Ratio 26(H) 7 - 23 10/19/2019 1:05 AM [facility] Osmolality Calculated 294 270 - 300 mOsm/kg 10/19/2019 1:05 AM [facility] Albumin/Globulin Ratio 1.6 1.1 - 2.3 10/19/2019 1:05 AM [facility] eGFR >60 >60 mL/min/1.7 3 m2 10/19/2019 1:05 AM [facility] Blood BLOOD SPECIMEN / Unknown Venipuncture / Unknown 10/19/2019 12:21 AM CDT 10/19/2019 12:34 AM T Tiffanie Nguyen BINDERY CUTTER OPERATOR-CLEAR [employer] SPRAYER LAB - CHEMISTRY ORDERABLES Performing Organization Address City/State/[facility] Co de Phone Number [address] [phone] * (ABNORMAL) CBC W AUTO DIFFERENTIAL (10/19/2019 12:21 AM T) WBC 5.5 3.5 - 10.5 10? 3 /uL 10/19/2019 12:40 AM [facility] RBC 3.63(L) 4.30 - 5.70 10? 6 /uL 10/19/2019 12:40 AM [facility] Hemoglobin 10.4(L) 13.5 - 17.5 g/dL 10/19/2019 12:40 AM [facility] Hematocrit 31.3(L) 39.0 - 50.0 % 10/19/2019 12:40 AM [facility] MCV 86.2 81.0 - 97.0 fL 10/19/2019 12:40 AM [facility] MCH 28.7 28.0 - 34.0 pg 10/19/2019 12:40 AM [facility] MCHC 33.2 32.0 - 36.0 g/dL 10/19/2019 12:40 AM [facility] Platelet Count 295 150 - 400 10? 3 /uL 10/19/2019 12:40 AM [facility] RDW-SD 49.9 36.0 - 50.0 fL 10/19/2019 12:40 AM [facility] RDW-CV 15.7(H) 11.2 - 14.8 % 10/19/2019 12:40 AM [facility] MPV 10.3 9.3 - 12.8 fL 10/19/2019 12:40 AM [facility] nRBC Absolute 0.00 0 10? 3 /uL 10/19/2019 12:40 AM [facility] nRBC Auto 0.0 0 /100 WBC 10/19/2019 12:40 AM [facility] Neutrophils % 96.5(H) 35.0 - 70.0 % 10/19/2019 12:40 AM [facility] Lymphocytes % 2.4(L) 19.7 - 55.1 % 10/19/2019 12:40 AM [facility] Monocytes % 0.4(L) 3.0 - 15.0 % 10/19/2019 12:40 AM [facility] Eosinophils % 0.0 0.0 - 6.0 % 10/19/2019 12:40 AM [facility] Basophil % 0.0 0.0 - 1.5 % 10/19/2019 12:40 AM [facility] Neutrophils Absolute 5.3 1.6 - 7.0 10? 3 /uL 10/19/2019 12:40 AM [facility] Lymphocyte Absolute 0.1(L) 0.8 - 2.9 10? 3 /uL 10/19/2019 12:40 AM [facility] Monocytes Absolute 0.02(L) 0.14 - 0.66 10? 3 /uL 10/19/2019 12:40 AM [facility] Eosinophils Absolute 0.00 0.00 - 0.45 10? 3 /uL 10/19/2019 12:40 AM [facility] Basophils Absolute 0.00 0.00 - 0.06 10? 3 /uL 10/19/2019 12:40 AM [facility] Immature Granulocytes % 0.7 0.0 - 1.0 % 10/19/2019 12:40 AM CDT [facility] Blood BLOOD SPECIMEN / Unknown Venipuncture / Unknown 10/19/2019 12:21 AM CDT 10/19/2019 12:34 AM CDT Tiffanie Nguyen [facility] LAB - HEMATOLOG Y ORDERABLES [address] [phone] * PHOSPHORUS BLOOD (10/17/2019 11:43 PM CDT) Phosphorus 2.9 2.3 - 4.7 mg/dL 10/18/2019 12:59 AM CDT [facility] Blood BLOOD SPECIMEN / Unknown Venipuncture / Unknown 10/17/2019 11:43 PM CDT 10/18/2019 12:34 AM CDT [facility]iffanie [facility] - CHEMISTRY ORDERABLES Performing Organization Address [facility]/ZIP Co de Phone Number [address] [phone] * MAGNESIUM BLOOD (10/17/2019 11:43 PM CDT) Magnesium 1.9 1.6 - 2.6 mg/dL 10/18/2019 12:59 AM CDT [facility] Blood BLOOD SPECIMEN / Unknown Venipuncture / Unknown 10/17/2019 11:43 PM CDT 10/18/2019 12:34 AM CDT Tiffanie Nguyen [facility] - CHEMISTRY ORDERABLES Performing Organization Address [facility]/ZIP Co de Phone Number [address] [phone] * (ABNORMAL) COMPREHENSIVE METABOLIC PANEL (10/17/2019 11:43 PM CDT) BUN 20 7 - 26 mg/dL 10/18/2019 12:59 AM [facility] Creatinine 0.8 0.6 - 1.2 mg/dL 10/18/2019 12:59 AM [facility] Sodium 143 136 - 145 mmol/L 10/18/2019 12:59 AM [facility] Potassium 4.1 3.5 - 4.5 mmol/L 10/18/2019 12:59 AM [facility] Chloride 107 98 - 107 mmol/L 10/18/2019 12:59 AM [facility] CO2 24 22 - 29 mmol/L 10/18/2019 12:59 AM [facility] Glucose 131(H) 70 - 115 mg/dL 10/18/2019 12:59 AM [facility] Calcium 9.1 8.4 - 10.2 mg/dL 10/18/2019 12:59 AM [facility] Protein Total 5.7(L) 6.0 - 8.3 g/dL 10/18/2019 12:59 AM [facility] Albumin 3.5 3.4 - 5.0 g/dL 10/18/2019 12:59 AM [facility] Bilirubin Total 0.3 0.2 - 1.2 mg/dL 10/18/2019 12:59 AM [facility] Alkaline Phosphatase 86 40 - 150 Units/L 10/18/2019 12:59 AM [facility] ALT 76(H) 0 - 55 Units/L 10/18/2019 12:59 AM [facility] AST 25 5 - 34 Units/L 10/18/2019 12:59 AM [facility] Anion Gap 16 8 - 18 10/18/2019 12:59 AM [facility] BUN/Creatinine Ratio 25(H) 7 - 23 10/18/2019 12:59 AM [facility] Osmolality Calculated 300 270 - 300 mOsm/kg 10/18/2019 12:59 AM [facility] Albumin/Globulin Ratio 1.6 1.1 - 2.3 10/18/2019 12:59 AM [facility] eGFR >60 >60 mL/min/1.7 3 m2 10/18/2019 12:59 AM [facility] Blood BLOOD SPECIMEN / Unknown Venipuncture / Unknown 10/17/2019 11:43 PM CDT 10/18/2019 12:34 AM CDT Tiffanie Nguyen BINDERY CUTTER OPERATOR-[employer] SPRAYER LAB - CHEMISTRY ORDERABLES [facility] [address] [place] [address] * (ABNORMAL) CBC W AUTO DIFFERENTIAL (10/17/2019 11:43 PM CDT) WBC 6.4 3.5 - 10.5 10? 3 /uL 10/18/2019 12:44 AM [facility] RBC 3.52(L) 4.30 - 5.70 10? 6 /uL 10/18/2019 12:44 AM [facility] Hemoglobin 10.2(L) 13.5 - 17.5 g/dL 10/18/2019 12:44 AM [facility] Hematocrit 30.9(L) 39.0 - 50.0 % 10/18/2019 12:44 AM [facility] MCV 87.8 81.0 - 97.0 fL 10/18/2019 12:44 AM [facility] MCH 29.0 28.0 - 34.0 pg 10/18/2019 12:44 AM [facility] MCHC 33.0 32.0 - 36.0 g/dL 10/18/2019 12:44 AM [facility] Platelet Count 321 150 - 400 10? 3 /uL 10/18/2019 12:44 AM [facility] RDW-SD 50.8(H) 36.0 - 50.0 fL 10/18/2019 12:44 AM [facility] RDW-CV 15.9(H) 11.2 - 14.8 % 10/18/2019 12:44 AM [facility] MPV 10.9 9.3 - 12.8 fL 10/18/2019 12:44 AM [facility] nRBC Absolute 0.00 0 10? 3 /uL 10/18/2019 12:44 AM [facility] nRBC Auto 0.0 0 /100 WBC 10/18/2019 12:44 AM [facility] Neutrophils % 93.4(H) 35.0 - 70.0 % 10/18/2019 12:44 AM [facility] Lymphocytes % 3.9(L) 19.7 - 55.1 % 10/18/2019 12:44 AM [facility] Monocytes % 2.2(L) 3.0 - 15.0 % 10/18/2019 12:44 AM [facility] Eosinophils % 0.0 0.0 - 6.0 % 10/18/2019 12:44 AM [facility] Basophil % 0.0 0.0 - 1.5 % 10/18/2019 12:44 AM [facility] Neutrophils Absolute 6.0 1.6 - 7.0 10? 3 /uL 10/18/2019 12:44 AM [facility] Lymphocyte Absolute 0.3(L) 0.8 - 2.9 10? 3 /uL 10/18/2019 12:44 AM [facility] Monocytes Absolute 0.14 0.14 - 0.66 10? 3 /uL 10/18/2019 12:44 AM [facility] Eosinophils Absolute 0.00 0.00 - 0.45 10? 3 /uL 10/18/2019 12:44 AM [facility] Basophils Absolute 0.00 0.00 - 0.06 10? 3 /uL 10/18/2019 12:44 AM [facility] Immature Granulocytes % 0.5 0.0 - 1.0 % 10/18/2019 12:44 AM [facility] Blood BLOOD SPECIMEN / Unknown Venipuncture / Unknown 10/17/2019 11:43 PM CDT 10/18/2019 12:34 AM CDT Tiffanie Nguyen BINDERY CUTTER OPERATOR-[employer]ER LAB - HEMATOLOG Y ORDERABLES [facility] [address] [phone] * PHOSPHORUS BLOOD (10/17/2019 12:20 AM CDT) Phosphorus 2.6 2.3 - 4.7 mg/dL 10/17/2019 12:58 AM CDT [facility] Blood BLOOD SPECIMEN / Unknown Venipuncture / Unknown 10/17/2019 12:20 AM CDT 10/17/2019 12:29 AM CDT Tiffanie Nguyen BINDERY CUTTER OPERATOR-[employer]ER LAB - CHEMISTRY ORDERABLES [address] [phone] * MAGNESIUM BLOOD (10/17/2019 12:20 AM CDT) Magnesium 1.9 1.6 - 2.6 mg/dL 10/17/2019 12:58 AM [facility] Blood BLOOD SPECIMEN / Unknown Venipuncture / Unknown 10/17/2019 12:20 AM CDT 10/17/2019 12:29 AM CDT Tiffanie Seymour Patrick BINDERY CUTTER OPERATOR-[facility] LAB - CHEMISTRY ORDERABLES [address] [phone] * (ABNORMAL) COMPREHENSIVE METABOLIC PANEL (10/17/2019 12:20 AM CDT) BUN 19 7 - 26 mg/dL 10/17/2019 12:58 AM [facility] Creatinine 0.8 0.6 - 1.2 mg/dL 10/17/2019 12:58 AM [facility] Sodium 143 136 - 145 mmol/L 10/17/2019 12:58 AM [facility] Potassium 4.0 3.5 - 4.5 mmol/L 10/17/2019 12:58 AM [facility] Chloride 109(H) 98 - 107 mmol/L 10/17/2019 12:58 AM [facility] CO2 26 22 - 29 mmol/L 10/17/2019 12:58 AM [facility] Glucose 124(H) 70 - 115 mg/dL 10/17/2019 12:58 AM [facility] Calcium 8.3(L) 8.4 - 10.2 mg/dL 10/17/2019 12:58 AM [facility] Protein Total 5.1(L) 6.0 - 8.3 g/dL 10/17/2019 12:58 AM [facility] Albumin 3.1(L) 3.4 - 5.0 g/dL 10/17/2019 12:58 AM [facility] Bilirubin Total 0.3 0.2 - 1.2 mg/dL 10/17/2019 12:58 AM [facility] Alkaline Phosphatase 83 40 - 150 Units/L 10/17/2019 12:58 AM [facility] ALT 70(H) 0 - 55 Units/L 10/17/2019 12:58 AM [facility] AST 29 5 - 34 Units/L 10/17/2019 12:58 AM [facility] Anion Gap 12 8 - 18 10/17/2019 12:58 AM [facility] BUN/Creatinine Ratio 24(H) 7 - 23 10/17/2019 12:58 AM [facility] Osmolality Calculated 300 270 - 300 mOsm/kg 10/17/2019 12:58 AM [facility] Albumin/Globulin Ratio 1.6 1.1 - 2.3 10/17/2019 12:58 AM [facility] eGFR >60 >60 mL/min/1.7 3 m2 10/17/2019 12:58 AM [facility] Blood BLOOD SPECIMEN / Unknown Venipuncture / Unknown 10/17/2019 12:20 AM CDT 10/17/2019 12:29 AM T Tiffanie Nguyen BINDERY CUTTER OPERATOR-[employer] LAB - CHEMISTRY ORDERABLES [address] [phone] * (ABNORMAL) CBC W AUTO DIFFERENTIAL (10/17/2019 12:20 AM [facility]) WBC 9.2 3.5 - 10.5 10? 3 /uL 10/17/2019 12:59 AM [facility] Comment:Confirmed by repeat analysis. RBC 3.38(L) 4.30 - 5.70 10? 6 /uL 10/17/2019 12:59 AM [facility] Hemoglobin 9.7(L) 13.5 - 17.5 g/dL 10/17/2019 12:59 AM [facility] Hematocrit 29.9(L) 39.0 - 50.0 % 10/17/2019 12:59 AM [facility] MCV 88.5 81.0 - 97.0 fL 10/17/2019 12:59 AM [facility] MCH 28.7 28.0 - 34.0 pg 10/17/2019 12:59 AM [facility] MCHC 32.4 32.0 - 36.0 g/dL 10/17/2019 12:59 AM [facility] Platelet Count 312 150 - 400 10? 3 /uL 10/17/2019 12:59 AM [facility] RDW-SD 51.3(H) 36.0 - 50.0 fL 10/17/2019 12:59 AM [facility] RDW-CV 15.9(H) 11.2 - 14.8 % 10/17/2019 12:59 AM [facility] MPV 10.2 9.3 - 12.8 fL 10/17/2019 12:59 AM [facility] nRBC Absolute 0.00 0 10? 3 /uL 10/17/2019 12:59 AM [facility] nRBC Auto 0.0 0 /100 WBC 10/17/2019 12:59 AM [facility] Neutrophils % 90.0(H) 35.0 - 70.0 % 10/17/2019 12:59 AM [facility] Lymphocytes % 3.9(L) 19.7 - 55.1 % 10/17/2019 12:59 AM [facility] Monocytes % 5.3 3.0 - 15.0 % 10/17/2019 12:59 AM [facility] Eosinophils % 0.0 0.0 - 6.0 % 10/17/2019 12:59 AM [facility] Basophil % 0.0 0.0 - 1.5 % 10/17/2019 12:59 AM [facility] Neutrophils Absolute 8.3(H) 1.6 - 7.0 10? 3 /uL 10/17/2019 12:59 AM CDT [facility] Lymphocyte Absolute 0.4(L) 0.8 - 2.9 10? 3 /uL 10/17/2019 12:59 AM CDT [facility] Monocytes Absolute 0.49 0.14 - 0.66 10? 3 /uL 10/17/2019 12:59 AM CDT [facility] Eosinophils Absolute 0.00 0.00 - 0.45 10? 3 /uL 10/17/2019 12:59 AM CDT [facility] Basophils Absolute 0.00 0.00 - 0.06 10? 3 /uL 10/17/2019 12:59 AM T [facility] Immature Granulocytes % 0.8 0.0 - 1.0 % 10/17/2019 12:59 AM T [facility] Blood BLOOD SPECIMEN / Unknown Venipuncture / Unknown 10/17/2019 12:20 AM CDT 10/17/2019 12:29 AM CDT [facility] - HEM[facility] Y ORDERABLES [address] [phone] * (ABNORMAL) PHOSPHORUS BLOOD (10/16/2019 12:02 AM CDT) Phosphorus 1.9(L) 2.3 - 4.7 mg/dL 10/16/2019 12:55 AM CDT [facility] Blood BLOOD SPECIMEN / Unknown Venipuncture / Unknown 10/16/2019 12:02 AM CDT 10/16/2019 12:32 AM CDT Tiffanie Nguyen BINDERY CUTTER [facility] LAB - CHEMISTRY ORDERABLES [address] [phone] * MAGNESIUM BLOOD (10/16/2019 12:02 AM CDT) Magnesium 1.6 1.6 - 2.6 mg/dL 10/16/2019 12:55 AM [facility] Blood BLOOD SPECIMEN / Unknown Venipuncture / Unknown 10/16/2019 12:02 AM CDT 10/16/2019 12:32 AM CDT Tiffanie Nguyen BINDERY CUTTER OPERATOR-[employer] LAB - CHEMISTRY ORDERABLES Performing Organization Address City/State/[facility] Co de Phone Number [facility] [address] [phone] * (ABNORMAL) COMPREHENSIVE METABOLIC PANEL (10/16/2019 12:02 AM T) BUN 19 7 - 26 mg/dL 10/16/2019 12:55 AM [facility] Creatinine 0.9 0.6 - 1.2 mg/dL 10/16/2019 12:55 AM [facility] Sodium 143 136 - 145 mmol/L 10/16/2019 12:55 AM [facility] Potassium 4.2 3.5 - 4.5 mmol/L 10/16/2019 12:55 AM [facility] Chloride 111(H) 98 - 107 mmol/L 10/16/2019 12:55 AM [facility] CO2 22 22 - 29 mmol/L 10/16/2019 12:55 AM [facility] Glucose 107 70 - 115 mg/dL 10/16/2019 12:55 AM [facility] Calcium 8.6 8.4 - 10.2 mg/dL 10/16/2019 12:55 AM [facility] Protein Total 5.5(L) 6.0 - 8.3 g/dL 10/16/2019 12:55 AM [facility] Albumin 3.4 3.4 - 5.0 g/dL 10/16/2019 12:55 AM [facility] Bilirubin Total 0.3 0.2 - 1.2 mg/dL 10/16/2019 12:55 AM [facility] Alkaline Phosphatase 90 40 - 150 Units/L 10/16/2019 12:55 AM [facility] ALT 40 0 - 55 Units/L 10/16/2019 12:55 AM [facility] AST 19 5 - 34 Units/L 10/16/2019 12:55 AM [facility] Anion Gap 14 8 - 18 10/16/2019 12:55 AM [facility] BUN/Creatinine Ratio 21 7 - 23 10/16/2019 12:55 AM [facility] Osmolality Calculated 299 270 - 300 mOsm/kg 10/16/2019 12:55 AM [facility] Albumin/Globulin Ratio 1.6 1.1 - 2.3 10/16/2019 12:55 AM [facility] eGFR >60 >60 mL/min/1.7 3 m2 10/16/2019 12:55 AM [facility] Blood BLOOD SPECIMEN / Unknown Venipuncture / Unknown 10/16/2019 12:02 AM CDT 10/16/2019 12:32 AM T Lara Patrick [employer] [facility] - CHEMISTRY ORDERABLES Performing Organization Address [facility] Co de Phone Number [address] [phone] * (ABNORMAL) CBC W AUTO DIFFERENTIAL (10/16/2019 12:02 AM T) WBC 16.7(H) 3.5 - 10.5 10? 3 /uL 10/16/2019 12:38 AM [facility] RBC 3.43(L) 4.30 - 5.70 10? 6 /uL 10/16/2019 12:38 AM [facility] Hemoglobin 10.0(L) 13.5 - 17.5 g/dL 10/16/2019 12:38 AM [facility] Hematocrit 30.7(L) 39.0 - 50.0 % 10/16/2019 12:38 AM [facility] MCV 89.5 81.0 - 97.0 fL 10/16/2019 12:38 AM [facility] MCH 29.2 28.0 - 34.0 pg 10/16/2019 12:38 AM [facility] MCHC 32.6 32.0 - 36.0 g/dL 10/16/2019 12:38 AM [facility] Platelet Count 361 150 - 400 10? 3 /uL 10/16/2019 12:38 AM [facility] RDW-SD 51.6(H) 36.0 - 50.0 fL 10/16/2019 12:38 AM [facility] RDW-CV 15.8(H) 11.2 - 14.8 % 10/16/2019 12:38 AM [facility] MPV 10.6 9.3 - 12.8 fL 10/16/2019 12:38 AM [facility] nRBC Absolute 0.00 0 10? 3 /uL 10/16/2019 12:38 AM [facility] nRBC Auto 0.0 0 /100 WBC 10/16/2019 12:38 AM [facility] Neutrophils % 88.7(H) 35.0 - 70.0 % 10/16/2019 12:38 AM [facility] Lymphocytes % 3.3(L) 19.7 - 55.1 % 10/16/2019 12:38 AM [facility] Monocytes % 7.2 3.0 - 15.0 % 10/16/2019 12:38 AM [facility] Eosinophils % 0.0 0.0 - 6.0 % 10/16/2019 12:38 AM [facility] Basophil % 0.1 0.0 - 1.5 % 10/16/2019 12:38 AM [facility] Neutrophils Absolute 14.8(H) 1.6 - 7.0 10? 3 /uL 10/16/2019 12:38 AM [facility] Lymphocyte Absolute 0.6(L) 0.8 - 2.9 10? 3 /uL 10/16/2019 12:38 AM [facility] Monocytes Absolute 1.21(H) 0.14 - 0.66 10? 3 /uL 10/16/2019 12:38 AM [facility] Eosinophils Absolute 0.00 0.00 - 0.45 10? 3 /uL 10/16/2019 12:38 AM [facility] Basophils Absolute 0.01 0.00 - 0.06 10? 3 /uL 10/16/2019 12:38 AM [facility] Immature Granulocytes % 0.7 0.0 - 1.0 % 10/16/2019 12:38 AM CDT [facility] Blood BLOOD SPECIMEN / Unknown Venipuncture / Unknown 10/16/2019 12:02 AM CDT 10/16/2019 12:32 AM CDT Tiffanie Nguyen [facility] LAB - HEMATOLOG Y ORDERABLES [address] [phone] * PHOSPHORUS BLOOD (10/15/2019 12:19 AM CDT) Phosphorus 2.5 2.3 - 4.7 mg/dL 10/15/2019 1:04 AM CDT [facility] Blood BLOOD SPECIMEN / Unknown Venipuncture / Unknown 10/15/2019 12:19 AM CDT 10/15/2019 12:19 AM CDT [facility]anie Nguyen [facility] - CHEMISTRY ORDERABLES Performing Organization Address [facility]/ZIP Co de Phone Number [address] [phone] * MAGNESIUM BLOOD (10/15/2019 12:19 AM CDT) Magnesium 1.9 1.6 - 2.6 mg/dL 10/15/2019 1:04 AM CDT [facility] Blood BLOOD SPECIMEN / Unknown Venipuncture / Unknown 10/15/2019 12:19 AM CDT 10/15/2019 12:19 AM CDT Tiffanie Nguyen [facility] - CHEMISTRY ORDERABLES Performing Organization Address [facility]/ZIP Co de Phone Number [address] [phone] * (ABNORMAL) COMPREHENSIVE METABOLIC PANEL (10/15/2019 12:19 AM CDT) BUN 12 7 - 26 mg/dL 10/15/2019 1:04 AM CDT [facility] Creatinine 1.0 0.6 - 1.2 mg/dL 10/15/2019 1:04 AM [facility] Sodium 142 136 - 145 mmol/L 10/15/2019 1:04 AM [facility] Potassium 4.0 3.5 - 4.5 mmol/L 10/15/2019 1:04 AM [facility] [facility] Chloride 114(H) 98 - 107 mmol/L 10/15/2019 1:04 AM [facility] CO2 18(L) 22 - 29 mmol/L 10/15/2019 1:04 AM [facility] Glucose 146(H) 70 - 115 mg/dL 10/15/2019 1:04 AM [facility] Calcium 8.8 8.4 - 10.2 mg/dL 10/15/2019 1:04 AM [facility] Protein Total 5.8(L) 6.0 - 8.3 g/dL 10/15/2019 1:04 AM [facility] Albumin 3.6 3.4 - 5.0 g/dL 10/15/2019 1:04 AM [facility] Bilirubin Total 0.2 0.2 - 1.2 mg/dL 10/15/2019 1:04 AM [facility] Alkaline Phosphatase 104 40 - 150 Units/L 10/15/2019 1:04 AM [facility] ALT 33 0 - 55 Units/L 10/15/2019 1:04 AM [facility] AST 15 5 - 34 Units/L 10/15/2019 1:04 AM [facility] Anion Gap 14 8 - 18 10/15/2019 1:04 AM [facility] BUN/Creatinine Ratio 12 7 - 23 10/15/2019 1:04 AM [facility] Osmolality Calculated 296 270 - 300 mOsm/kg 10/15/2019 1:04 AM [facility] Albumin/Globulin Ratio 1.6 1.1 - 2.3 10/15/2019 1:04 AM [facility] eGFR >60 >60 mL/min/1.7 3 m2 10/15/2019 1:04 AM [facility] Blood BLOOD SPECIMEN / Unknown Venipuncture / Unknown 10/15/2019 12:19 AM CDT 10/15/2019 12:19 AM CDT Tiffanie Nguyen [employer] [facility] - CHEMISTRY ORDERABLES [facility] [address] [place] [address] * (ABNORMAL) CBC W AUTO DIFFERENTIAL (10/15/2019 12:19 AM CDT) WBC 17.3(H) 3.5 - 10.5 10? 3 /uL 10/15/2019 1:39 AM [facility] Comment:Confirmed by repeat analysis. RBC 3.59(L) 4.30 - 5.70 10? 6 /uL 10/15/2019 1:39 AM [facility] Hemoglobin 10.5(L) 13.5 - 17.5 g/dL 10/15/2019 1:39 AM [facility] Hematocrit 32.3(L) 39.0 - 50.0 % 10/15/2019 1:39 AM [facility] MCV 90.0 81.0 - 97.0 fL 10/15/2019 1:39 AM [facility] MCH 29.2 28.0 - 34.0 pg 10/15/2019 1:39 AM [facility] MCHC 32.5 32.0 - 36.0 g/dL 10/15/2019 1:39 AM [facility] Platelet Count 396 150 - 400 10? 3 /uL 10/15/2019 1:39 AM [facility] RDW-SD 51.3(H) 36.0 - 50.0 fL 10/15/2019 1:39 AM [facility] RDW-CV 15.5(H) 11.2 - 14.8 % 10/15/2019 1:39 AM [facility] MPV 10.6 9.3 - 12.8 fL 10/15/2019 1:39 AM [facility] nRBC Absolute 0.00 0 10? 3 /uL 10/15/2019 1:39 AM [facility] nRBC Auto 0.0 0 /100 WBC 10/15/2019 1:39 AM [facility] Neutrophils % 90.1(H) 35.0 - 70.0 % 10/15/2019 1:39 AM [facility] Lymphocytes % 4.1(L) 19.7 - 55.1 % 10/15/2019 1:39 AM [facility] Monocytes % 5.0 3.0 - 15.0 % 10/15/2019 1:39 AM [facility] Eosinophils % 0.0 0.0 - 6.0 % 10/15/2019 1:39 AM [facility] Basophil % 0.1 0.0 - 1.5 % 10/15/2019 1:39 AM [facility] Neutrophils Absolute 15.6(H) 1.6 - 7.0 10? 3 /uL 10/15/2019 1:39 AM [facility] Lymphocyte Absolute 0.7(L) 0.8 - 2.9 10? 3 /uL 10/15/2019 1:39 AM [facility] Monocytes Absolute 0.86(H) 0.14 - 0.66 10? 3 /uL 10/15/2019 1:39 AM [facility] Eosinophils Absolute 0.00 0.00 - 0.45 10? 3 /uL 10/15/2019 1:39 AM [facility] Basophils Absolute 0.02 0.00 - 0.06 10? 3 /uL 10/15/2019 1:39 AM [facility] Immature Granulocytes % 0.7 0.0 - 1.0 % 10/15/2019 1:39 AM [facility] Blood BLOOD SPECIMEN / Unknown Venipuncture / Unknown 10/15/2019 12:19 AM CDT 10/15/2019 12:19 AM CDT Tiffanie Nguyen [employer] LAB - HEMATOLOG Y ORDERABLES [address] [phone] * (ABNORMAL) PHOSPHORUS BLOOD (10/13/2019 11:19 PM CDT) Phosphorus 2.2(L) 2.3 - 4.7 mg/dL 10/14/2019 12:01 AM [facility] Blood BLOOD SPECIMEN / Unknown Venipuncture / Unknown 10/13/2019 11:19 PM CDT 10/13/2019 11:34 PM CDT Tiffanie Nguyen [employer] LAB - CHEMISTRY ORDERABLES [address] [phone] * MAGNESIUM BLOOD (10/13/2019 11:19 PM CDT) Magnesium 1.9 1.6 - 2.6 mg/dL 10/14/2019 12:01 AM [facility] Blood BLOOD SPECIMEN / Unknown Venipuncture / Unknown 10/13/2019 11:19 PM CDT 10/13/2019 11:34 PM CDT Tiffanie Alvess [employer] OPERATOR-[facility] - CHEMISTRY ORDERABLES [address] [phone] * (ABNORMAL) COMPREHENSIVE METABOLIC PANEL (10/13/2019 11:19 PM CDT) BUN 14 7 - 26 mg/dL 10/14/2019 12:01 AM [facility] Creatinine 0.8 0.6 - 1.2 mg/dL 10/14/2019 12:01 AM [facility] Sodium 139 136 - 145 mmol/L 10/14/2019 12:01 AM [facility] Potassium 4.5 3.5 - 4.5 mmol/L 10/14/2019 12:01 AM [facility] Chloride 109(H) 98 - 107 mmol/L 10/14/2019 12:01 AM [facility] CO2 23 22 - 29 mmol/L 10/14/2019 12:01 AM [facility] Glucose 134(H) 70 - 115 mg/dL 10/14/2019 12:01 AM [facility] Calcium 9.2 8.4 - 10.2 mg/dL 10/14/2019 12:01 AM [facility] Protein Total 6.2 6.0 - 8.3 g/dL 10/14/2019 12:01 AM [facility] Albumin 3.8 3.4 - 5.0 g/dL 10/14/2019 12:01 AM [facility] Bilirubin Total 0.2 0.2 - 1.2 mg/dL 10/14/2019 12:01 AM [facility] Alkaline Phosphatase 126 40 - 150 Units/L 10/14/2019 12:01 AM [facility] ALT 49 0 - 55 Units/L 10/14/2019 12:01 AM [facility] AST 21 5 - 34 Units/L 10/14/2019 12:01 AM [facility] Anion Gap 12 8 - 18 10/14/2019 12:01 AM [facility] BUN/Creatinine Ratio 18 7 - 23 10/14/2019 12:01 AM [facility] Osmolality Calculated 290 270 - 300 mOsm/kg 10/14/2019 12:01 AM [facility] Albumin/Globulin Ratio 1.6 1.1 - 2.3 10/14/2019 12:01 AM [facility] eGFR >60 >60 mL/min/1.7 3 m2 10/14/2019 12:01 AM [facility] Blood BLOOD SPECIMEN / Unknown Venipuncture / Unknown 10/13/2019 11:19 PM CDT 10/13/2019 11:34 PM [facility] Tiffanie Nguyen [employer] LAB - CHEMISTRY ORDERABLES [address] [phone] * (ABNORMAL) CBC W AUTO DIFFERENTIAL (10/13/2019 11:19 PM CDT) WBC 8.6 3.5 - 10.5 10? 3 /uL 10/13/2019 11:49 PM [facility] Comment:Confirmed by repeat analysis. RBC 4.03(L) 4.30 - 5.70 10? 6 /uL 10/13/2019 11:49 PM [facility] Hemoglobin 11.8(L) 13.5 - 17.5 g/dL 10/13/2019 11:49 PM [facility] Hematocrit 35.7(L) 39.0 - 50.0 % 10/13/2019 11:49 PM [facility] MCV 88.6 81.0 - 97.0 fL 10/13/2019 11:49 PM [facility] MCH 29.3 28.0 - 34.0 pg 10/13/2019 11:49 PM [facility] MCHC 33.1 32.0 - 36.0 g/dL 10/13/2019 11:49 PM [facility] Platelet Count 412(H) 150 - 400 10? 3 /uL 10/13/2019 11:49 PM [facility] RDW-SD 48.5 36.0 - 50.0 fL 10/13/2019 11:49 PM [facility] RDW-CV 14.9(H) 11.2 - 14.8 % 10/13/2019 11:49 PM [facility] MPV 10.3 9.3 - 12.8 fL 10/13/2019 11:49 PM [facility] nRBC Absolute 0.00 0 10? 3 /uL 10/13/2019 11:49 PM [facility] nRBC Auto 0.0 0 /100 WBC 10/13/2019 11:49 PM [facility] Blood BLOOD SPECIMEN / Unknown Venipuncture / Unknown 10/13/2019 11:19 PM CDT 10/13/2019 11:34 PM [facility] Tiffanie Nguyen [employer] O[employer] LAB - HEMATOLOG Y ORDERABLES [address] [phone] documented in this encounter Visit Diagnoses Diagnosis Diffuse large B-cell lymphoma, unspecified body region (HCC)- Primary Awaiting organ transplant status Anxiety Anxiety state, unspecified Acidosis Restless legs syndrome (RLS) Abnormal levels of other serum enzymes 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 Expiratory wheezing on right side of chest Diarrhea, unspecified type Wheezing Pancytopenia (HCC) Tachycardia, unspecified Back pain, unspecified back location, unspecified back pain laterality, unspecified chronicity Other pancytopenia (HCC) Other pancytopenia DLBCL (diffuse large B cell lymphoma) (HCC) Other malignant lymphomas, unspecified site, extranodal and solid organ sites documented in this encounter Administered Medications Inactive Administered Medications - up to 3 most recent administrations Medication Order MAR Action Action Date Dose Rate Site 0.9% NaCl infusion ADS Med 1 dose, Starting on Fri10/20/19 at 0922, Until Fri10/20/19 at 1034, Keena Leon: cabinet override 0.9% NaCl infusion at 150 mL/hr, Intravenous, CONTINUOUS, Starting on Fri10/13/19 at 1545, Until Fri10/15/19 at 0858, End infusion no more than 4 hours after melphalan $ New Bag/Syringe 10/15/2019 8:53 AM CDT 150 mL/hr $ New Bag/Syringe 10/15/2019 2:40 AM CDT 150 mL /hr $ New Bag/Syringe 10/14/2019 7:56 PM CDT 150 mL /hr 0.9% NaCl infusion at 150 mL/hr, Intravenous, CONTINUOUS, Starting on 10/16/19 at 1045, Until Fri10/18/19 at 1600, Change after last liter of LR- moving back to NS for hydration for chemo vs. LR $ New Bag/Syringe 10/18/2019 9:21 AM CDT 150 mL/hr $ New Bag/Syringe 10/18/2019 2:53 AM CDT 150 mL /hr $ New Bag/Syringe 10/17/2019 8:04 PM CDT 150 mL /hr 0.9% NaCl infusion at 75 mL/hr, Intravenous, CONTINUOUS, Starting on Fri10/25/19 at 0045, Until Tu10/26/19 at 0713 $ New Bag/Syringe 10/26/2019 4:51 AM CDT 75 mL/hr $ New Bag/Syringe 10/25/2019 2:19 PM CDT 75 mL/ hr Current Rate 10/25/2019 6:43 AM CDT 75 mL/hr 0.9% NaCl injection 10 mL 10 mL, Intracatheter, EVERY 8 HOURS, First dose on Fri10/13/19 at 1515, Until Discontinued, FLUSH, 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 (NON-PROCEDURAL) $ Given 10/27/2019 8:00 PM CDT 10 mL $ Given 10/27/2019 2:18 PM CDT 10 mL $ Given 10/26/2019 3:32 PM CDT 10 mL 0.9% NaCl injection 10 mL 10 mL, Intracatheter, PRN, Other, Starting on Fri10/13/19 at 1514, Until Fri10/29/19 at 1716, FLUSH PRN Until Discontinued, 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 (NON-PROCEDURAL) $ Given 10/24/2019 2:05 PM CDT 10 mL 0.9% NaCl IV Bolus 250 mL, at 245.9 mL/hr, Administer over 61 Minutes, ONCE, 1 dose, On Fri10/20/19 at 1200, Administer over 1 hour prior to HPC infusion. $ New Bag/Syringe 10/20/2019 9:30 AM CDT 250 mL 245.9 mL/hr 0.9% NaCl IV Bolus 250 mL, at 245.9 mL/hr, Administer over 61 Minutes, ONCE, 1 dose, On Fri10/20/19 at 1400, Administer over 1 hour after HPC infusion. $ New Bag/Syringe 10/20/2019 12:35 PM CDT 250 mL 245.9 mL/hr 0.9% NaCl IV Bolus 1,000 mL, at 248.96 mL/hr, Administer over 241 Minutes, ONCE, 1 dose, On Fri10/22/19 at 0700 $ New Bag/Syringe 10/22/2019 7:55 AM CDT 1,000 mL 248.96 mL/hr 0.9% NaCl IV Bolus 1,000 mL, at 495.87 mL/hr, Administer over 121 Minutes, ONCE, 1 dose, On 10/23/19 at 1045 $ New Bag/Syringe 10/23/2019 10:54 AM CDT 1,000 mL 495.87 mL/hr 0.9% NaCl IV Bolus 1,000 mL, at 495.87 mL/hr, Administer over 121 Minutes, ONCE, 1 dose, On Fri10/24/19 at 0415 Current Rate 10/24/2019 4:13 AM CDT 495.87 mL/hr $ New Bag/Syringe 10/24/2019 4:11 AM CDT 1,000 mL 495.87 mL/hr 0.9% NaCl IV Bolus 1,000 mL, at 495.87 mL/hr, Administer over 121 Minutes, 2 TIMES DAILY, First dose on Fri10/24/19 at 1045, Until Discontinued Current Rate 10/24/2019 10:41 AM CDT 495.87 mL/hr $ New Bag/Syringe 10/24/2019 10:37 AM CDT 1,000 mL 495.8 7 mL/hr acetaminophen (TYLENOL) tablet 650 mg 650 mg, Oral, ONCE, 1 dose, On Fri10/20/19 at 1030, Administer 30 minutes prior to infusion. $ Given 10/20/2019 10:00 AM CDT 650 mg albuterol HFA (PROVENTIL;VENTOLIN;PROAIR) 108 (90 Base) MCG/ACT inhaler 2 puff 2 puff, Inhalation, EVERY 4 HOURS PRN, Shortness of Breath, Wheezing, Starting on 10/23/19 at 2108, Until Fri10/29/19 at 1716, Shake well before using. WASTE DISPOSAL INSTRUCTION: Send to Pharmacy for Disposal. $ Given 10/24/2019 2:05 PM CDT 2 puffs alteplase (CATHFLO ACTIVASE) injection 2 mg 2 mg, Intravenous, ONCE, 1 dose, On Ofelia 10/28/19 at 0915, Dilute 2 mg vial with 2.2 mL sterile water for final concentration of 1 mg/mL. 1. Instill the dose into the occluded catheter. 2. After 30 minutes of dwell time, assess catheter function by attempting to aspirate blood. 3. If catheter function has been restored, aspirate 4-5 mL of blood in patients weighing over 10 kg, or 3 mL in patients weighing under 10 kg, to remove Cathflo Activase and residual clot, and gently irrigate the catheter with 0.9% Sodium Chloride, GROUP HOME. Refrigerate $ Given 10/28/2019 9:16 AM CDT 2 mg alteplase (CATHFLO ACTIVASE) injection 2 mg 2 mg, Intravenous, ONCE, 1 dose, On Ofelia 10/28/19 at 0915, Dilute 2 mg vial with 2.2 mL sterile water for final concentration of 1 mg/mL. 1. Instill the dose into the occluded catheter. 2. After 30 minutes of dwell time, assess catheter function by attempting to aspirate blood. 3. If catheter function has been restored, aspirate 4-5 mL of blood in patients weighing over 10 kg, or 3 mL in patients weighing under 10 kg, to remove Cathflo Activase and residual clot, and gently irrigate the catheter with 0.9% Sodium Chloride, GROUP HOME. Refrigerate $ Given 10/28/2019 9:16 AM CDT 2 mg alteplase (CATHFLO ACTIVASE) injection 2 mg 2 mg, Intravenous, ONCE, 1 dose, On Fri10/29/19 at 0830, Dilute 2 mg vial with 2.2 mL sterile water for final concentration of 1 mg/mL. 1. Instill the dose into the occluded catheter. 2. After 30 minutes of dwell time, assess catheter function by attempting to aspirate blood. 3. If catheter function has been restored, aspirate 4-5 mL of blood in patients weighing over 10 kg, or 3 mL in patients weighing under 10 kg, to remove Cathflo Activase and residual clot, and gently irrigate the catheter with 0.9% Sodium Chloride, GROUP HOME. Refrigerate $ Given 10/29/2019 8:38 AM CDT 2 mg apixaban (ELIQUIS) tablet 5 mg 5 mg, Oral, ONCE, 1 dose, On Fri10/13/19 at 2100, 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 (NON-PROCEDURAL) $ Given 10/13/2019 9:01 PM CDT 5 mg bacitracin topical ointment Topical, 3 TIMES DAILY, First dose on Fri10/24/19 at 1445, Until Discontinued, Apply to area at dressing site $ Given 10/29/2019 7:58 AM CDT $ Given 10/28/2019 8:30 PM CDT $ Given 10/28/2019 1:16 PM CDT cefepime (MAXIPIME) 2,000 mg in 0.9% NaCl 50 mL IVPB 2,000 mg (2 g), at 100 mL/hr, Intravenous, EVERY 8 HOURS, First dose on Fri10/25/19 at 1030, Until Discontinued, Indication for anti-infective therapy: Suspected infection, Site of anti-infective therapy: Blood $ New Bag/Syringe 10/29/2019 3:04 AM CDT 2,000 mg 100 mL/hr $ New Bag/Syringe 10/28/2019 5:55 PM CDT 2,000 mg 100 mL /hr $ New Bag/Syringe 10/28/2019 10:03 AM CDT 2,000 mg 100 m L/hr cytarabine (CYTOSAR) 400 mg in 0.9% NaCl 114 mL infusion 400 mg (200 mg/m2 ? 2 m2 Order-specific BSA), at 228 mL/hr, Administer over 30 Minutes, Intravenous, EVERY 12 HOURS, 2 doses, First dose on Ofelia 10/14/19 at 1130, Last dose on Ofelia 10/14/19 at 2330, . WASTE DISPOSAL INSTRUCTIONS: Chemo Bin Disposal required. DISPENSE WITH A CSTD $ New Bag/Syringe 10/14/2019 11:02 PM CDT 400 mg 228 mL/hr $ New Bag/Syringe 10/14/2019 11:46 AM CDT 400 mg 228 m L/hr cytarabine (CYTOSAR) 400 mg in 0.9% NaCl 114 mL infusion 400 mg (200 mg/m2 ? 2 m2 Order-specific BSA), at 228 mL/hr, Administer over 30 Minutes, Intravenous, EVERY 12 HOURS, 2 doses, First dose on Fri10/15/19 at 1130, Last dose on Fri10/15/19 at 2330, . WASTE DISPOSAL INSTRUCTIONS: Chemo Bin Disposal required. DISPENSE WITH A CSTD $ New Bag/Syringe 10/15/2019 11:26 PM CDT 400 mg 228 mL/hr $ New Bag/Syringe 10/15/2019 11:51 AM CDT 400 mg 228 m L/hr cytarabine (CYTOSAR) 400 mg in 0.9% NaCl 114 mL infusion 400 mg (200 mg/m2 ? 2 m2 Order-specific BSA), at 228 mL/hr, Administer over 30 Minutes, Intravenous, EVERY 12 HOURS, 2 doses, First dose on 10/16/19 at 1130, Last dose on Fri10/16/19 at 2330, . WASTE DISPOSAL INSTRUCTIONS: Chemo Bin Disposal required. DISPENSE WITH A CSTD $ New Bag/Syringe 10/16/2019 11:30 PM CDT 400 mg 228 mL/hr $ New Bag/Syringe 10/16/2019 12:05 PM CDT 400 mg 228 m L/hr cytarabine (CYTOSAR) 400 mg in 0.9% NaCl 114 mL infusion 400 mg (200 mg/m2 ? 2 m2 Order-specific BSA), at 228 mL/hr, Administer over 30 Minutes, Intravenous, EVERY 12 HOURS, 2 doses, First dose on 10/17/19 at 1130, Last dose on Fri10/17/19 at 2330, . WASTE DISPOSAL INSTRUCTIONS: Chemo Bin Disposal required. DISPENSE WITH A CSTD $ New Bag/Syringe 10/18/2019 12:28 AM CDT 400 mg 228 mL/hr $ New Bag/Syringe 10/17/2019 11:53 AM CDT 400 mg 228 m L/hr dexamethasone (DECADRON) tablet 8 mg 8 mg, Oral, ONCE, 1 dose, On Ofelia 10/14/19 at 0900, Administer 30 minutes prior to chemotherapy. $ Given 10/14/2019 8:11 AM CDT 8 mg dexamethasone (DECADRON) tablet 8 mg 8 mg, Oral, ONCE, 1 dose, On Fri10/15/19 at 0900, Administer 30 minutes prior to chemotherapy. $ Given 10/15/2019 8:47 AM CDT 8 mg dexamethasone (DECADRON) tablet 8 mg 8 mg, Oral, ONCE, 1 dose, On Fri10/16/19 at 0900, Take large doses with meals and take antacids between meals to prevent peptic ulcer. Administer 30 minutes prior to chemotherapy $ Given 10/16/2019 8:50 AM CDT 8 mg dexamethasone (DECADRON) tablet 8 mg 8 mg, Oral, ONCE, 1 dose, On Fri10/17/19 at 0900, Administer 30 minutes prior to chemotherapy. $ Given 10/17/2019 8:54 AM CDT 8 mg dexamethasone (DECADRON) tablet 8 mg 8 mg, Oral, ONCE, 1 dose, On Fri10/18/19 at 1000, Administer 30 minutes prior to chemotherapy. $ Given 10/18/2019 9:58 AM CDT 8 mg dexamethasone (DECADRON) tablet 8 mg 8 mg, Oral, ONCE, 1 dose, On Fri10/19/19 at 0900 $ Given 10/19/2019 8:21 AM CDT 8 mg dexamethasone (DECADRON) tablet 8 mg 8 mg, Oral, ONCE, 1 dose, On Fri10/20/19 at 0900 $ Given 10/20/2019 9:29 AM CDT 8 mg dexamethasone (DECADRON) tablet 8 mg 8 mg, Oral, ONCE, 1 dose, On Fri10/21/19 at 0900 $ Given 10/21/2019 9:56 AM CDT 8 mg diphenhydrAMINE (BENADRYL) injection 25 mg 25 mg, Intravenous, ONCE, 1 dose, On Fri10/20/19 at 1030, Administer IV at a rate not exceeding 25 mg/min. Can dilute in 5-10 mL NS as needed for patient comfort. Administer 30 minutes prior to infusion. $ Given 10/20/2019 10:00 AM CDT 25 mg docusate sodium (COLACE) capsule 100 mg 100 mg, Oral, 2 TIMES DAILY PRN, Constipation, Starting on Fri10/13/19 at 1514, Until Fri10/29/19 at 1716, 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 (NON-PROCEDURAL) enoxaparin (LOVENOX) injection 120 mg 120 mg (rounded from 120.7 mg = 1 mg/kg ? 120.7 kg), Subcutaneous, EVERY 12 HOURS, First dose on Fri10/14/19 at 0900, Until Discontinued, (for prefilled syringes) do not expel air bubble from the syringe prior to the injection Remind Patient to not rub injection site. Could cause hematoma., 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 (NON-PROCEDURAL) $ Given 10/24/2019 8:51 AM CDT 120 mg Abdominal Tissue $ Given 10/23/2019 8:21 PM CDT 120 mg Ab dominal Tissue $ Given 10/23/2019 9:17 AM CDT 120 mg Ab dominal Tissue escitalopram (LEXAPRO) tablet 10 mg 10 mg, Oral, DAILY, First dose on Fri10/14/19 at 0900, Until Discontinued, 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 (NON-PROCEDURAL) $ Given 10/29/2019 7:58 AM CDT 10 mg $ Given 10/28/2019 7:52 AM CDT 10 mg $ Given 10/27/2019 8:20 AM CDT 10 mg etoposide (VEPESID) 400 mg in 0.9% NaCl 1,270 mL infusion 400 mg (200 mg/m2 ? 2 m2 Order-specific BSA), at 635 mL/hr, Administer over 120 Minutes, Intravenous, ONCE, 1 dose, On Fri10/14/19 at 0930, . WASTE DISPOSAL INSTRUCTIONS: Chemo Bin Disposal required. DISPENSE WITH A CSTD $ New Bag/Syringe 10/14/2019 9:33 AM CDT 400 mg 635 mL/hr etoposide (VEPESID) 400 mg in 0.9% NaCl 1,270 mL infusion 400 mg (200 mg/m2 ? 2 m2 Order-specific BSA), at 635 mL/hr, Administer over 120 Minutes, Intravenous, ONCE, 1 dose, On Fri10/15/19 at 0930, . WASTE DISPOSAL INSTRUCTIONS: Chemo Bin Disposal required. DISPENSE WITH A CSTD $ New Bag/Syringe 10/15/2019 9:35 AM CDT 400 mg 635 mL/hr etoposide (VEPESID) 400 mg in 0.9% NaCl 1,270 mL infusion 400 mg (200 mg/m2 ? 2 m2 Order-specific BSA), at 635 mL/hr, Administer over 120 Minutes, Intravenous, ONCE, 1 dose, On Fri10/16/19 at 0930, . WASTE DISPOSAL INSTRUCTIONS: Chemo Bin Disposal required. DISPENSE WITH A CSTD $ New Bag/Syringe 10/16/2019 9:53 AM CDT 400 mg 635 mL/hr etoposide (VEPESID) 400 mg in 0.9% NaCl 1,270 mL infusion 400 mg (200 mg/m2 ? 2 m2 Order-specific BSA), at 635 mL/hr, Administer over 120 Minutes, Intravenous, ONCE, 1 dose, On Fri10/17/19 at 0930, . WASTE DISPOSAL INSTRUCTIONS: Chemo Bin Disposal required. DISPENSE WITH A CSTD $ New Bag/Syringe 10/17/2019 9:25 AM CDT 400 mg 635 mL/hr fluconazole (DIFLUCAN) tablet 400 mg 400 mg, Oral, DAILY, 100 doses, First dose on Fri10/14/19 at 0900, Last dose on Fri01/21/20 at 0900, Indication for anti-infective therapy: Chronic prophylaxis, 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 (NON-PROCEDURAL) $ Given 10/19/2019 8:21 AM CDT 400 mg $ Given 10/18/2019 8:20 AM CDT 400 mg $ Given 10/17/2019 8:04 AM CDT 400 mg fosaprepitant (EMEND) 150 mg in 0.9% NaCl 250 mL IVPB 150 mg, at 500 mL/hr, Intravenous, ONCE, 1 dose, On 10/18/19 at 1000, Administer 30 minutes prior to chemotherapy. $ New Bag/Syringe 10/18/2019 10:06 AM CDT 150 mg 500 mL/hr furosemide (LASIX) injection 20 mg 20 mg, Intravenous, ONCE, 1 dose, On Fri10/15/19 at 1045 $ Given 10/15/2019 10:56 AM CDT 20 mg furosemide (LASIX) injection 20 mg 20 mg, Intravenous, ONCE, 1 dose, On 10/16/19 at 0815 $ Given 10/16/2019 8:50 AM CDT 20 mg furosemide (LASIX) injection 20 mg 20 mg, Intravenous, ONCE, 1 dose, On 10/17/19 at 1715 $ Given 10/17/2019 5:00 PM CDT 20 mg furosemide (LASIX) injection 40 mg 40 mg, Intravenous, ONCE, 1 dose, On 10/18/19 at 1000 $ Given 10/18/2019 10:03 AM CDT 40 mg heparin lock flush injection 500 Units 500 Units, Intravenous, 2 TIMES DAILY, First dose on Fri10/13/19 at 2100, Until Discontinued, 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, 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 (NON-PROCEDURAL) $ Given 10/29/2019 7:58 AM CDT 500 Units $ Given 10/28/2019 8:30 PM CDT 500 Units $ Given 10/28/2019 7:57 AM CDT 500 Units lactated ringers infusion at 150 mL/hr, Intravenous, CONTINUOUS, Starting on Fri10/15/19 at 0930, Until 10/16/19 at 1011, End transfusion not more than 4 hours after melphalan $ New Bag/Syringe 10/16/2019 5:19 AM CDT 150 mL/hr $ New Bag/Syringe 10/15/2019 9:56 PM CDT 150 mL /hr $ New Bag/Syringe 10/15/2019 3:30 PM CDT 150 mL /hr levoFLOXacin (LEVAQUIN) tablet 500 mg 500 mg, Oral, DAILY, First dose on [place] 10/21/19 at 0900, Until Discontinued, Take with or without food. Take at least 2 hours before or 2 hours after sucralfate, metal cations such as iron, multivitamins with zinc, antacids containing aluminum, magnesium, or didanosine buffered tables or powder for oral solution., Indication for anti-infective therapy: Chronic prophylaxis, 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 (NON-PROCEDURAL) $ Given 10/25/2019 9:34 A M CDT 500 mg $ Given 10/24/2019 8:50 AM CDT 500 mg $ Given 10/23/2019 9:19 AM CDT 500 mg loperamide (IMODIUM) solution 2 mg 2 mg, Oral, EVERY 3 HOURS PRN, Diarrhea, Starting on 10/22/20 at 2304, Until Fri10/29/19 at 1716, Max dose 16mg/day loratadine (CLARITIN) tablet 10 mg 10 mg, Oral, DAILY, First dose on Fri10/25/19 at 2100, Until Discontinued $ Given 10/29/2019 7:58 AM CDT 10 mg $ Given 10/28/2019 7:52 AM CDT 10 mg $ Given 10/27/2019 8:20 AM CDT 10 mg LORazepam (ATIVAN) tablet 0.5 mg 0.5 mg, Oral, EVERY 8 HOURS PRN, Nausea/Vomiting, 30 doses, Starting on Fri10/13/19 at 1528, Until Fri10/29/19 at 1716, Use if patient is experiencing anxiety-related nausea or vomiting of any grade and/or has failed prochlorperazine and ondansetron. Use IV if patient unable to tolerate oral administration. magnesium sulfate 2 g in 50 mL bolus 2 g, at 25 mL/hr, Administer over 120 Minutes, Intravenous, PRN, Hypomagnesemia, Starting on Fri10/13/19 at 1514, Until Fri10/29/19 at 1716, If serum magnesium is then less than 1.4 mg/dL, infuse 2g IV Mag, if less than 1.1 repeat 2 gram dose one time for total dose of 4 g. melphalan (ALKERAN) 280 mg in 0.9% NaCl 622.2222 mL infusion 280 mg (140 mg/m2 ? 2 m2 Order-specific BSA), at 982.46 mL/hr, Administer over 38 Minutes, Intravenous, ONCE, 1 dose, On Fri10/18/19 at 1030, Drug has very short stability. Infusion must be completed within 60 minutes of compounding. . WASTE DISPOSAL INSTRUCTIONS: Chemo Bin Disposal required. DISPENSE WITH A CSTD $ New Bag/Syringe 10/18/2019 10:56 AM CDT 280 mg 982.46 mL/hr methyl salicylate-menthol (ABIMAEL SILVA) ointment Topical, 4 TIMES DAILY PRN, Mild Pain, Starting on Fri10/27/19 at 2039, Until Fri10/29/19 at 1716, Apply to back $ Given 10/29/2019 7:59 AM CDT $ Given 10/27/2019 9:40 PM CDT micafungin (MYCAMINE) 50 mg in 0.9% NaCl IVPB 50 mg, at 100 mL/hr, Intravenous, EVERY 24 HOURS, First dose on Fri10/20/19 at 0900, Until Discontinued, Flush line Pre/Post Dose with Normal Saline unless running NS as a carrier fluid. Store at room temperature. Protect diluted solution from light., Indication for anti-infective therapy: Chronic prophylaxis $ New Bag/Syringe 10/28/2019 7:51 AM CDT 50 mg 100 mL/hr $ New Bag/Syringe 10/27/2019 8:28 AM CDT 50 mg 100 mL /hr $ New Bag/Syringe 10/26/2019 9:26 AM CDT 50 mg 100 mL /hr morphine injection 2 mg 2 mg, Intravenous, EVERY 4 HOURS PRN, Moderate Pain, Starting on Fri10/27/19 at 2336, Until Fri10/28/19 at 1135 $ Given 10/28/2019 4:40 AM CDT 2 mg $ Given 10/27/2019 11:45 PM CDT 2 mg morphine injection 4 mg 4 mg, Intravenous, EVERY 4 HOURS PRN, Moderate Pain, Starting on Fri10/28/19 at 1134, Until Fri10/28/19 at 2144 $ Given 10/28/2019 8:02 PM CDT 4 mg $ Given 10/28/2019 11:53 AM CDT 4 mg morphine injection 4 mg 4 mg, Intravenous, EVERY 4 HOURS PRN, Severe Pain, Starting on Fri10/28/19 at 1212, Until Fri10/29/19 at 1716 $ Given 10/29/2019 1:01 AM CDT 4 mg OLANZapine (ZyPREXA) tablet 5 mg 5 mg, Oral, AT BEDTIME, 9 doses, First dose on Fri10/13/19 at 2100, Last dose on Fri10/21/19 at 2100 $ Given 10/21/2019 8:48 PM CDT 5 mg $ Given 10/20/2019 8:20 PM CDT 5 mg $ Given 10/19/2019 8:49 PM CDT 5 mg ondansetron (disintegrating) (ZOFRAN ODT) tablet 4 mg 4 mg, Sublingual, EVERY 6 HOURS PRN, Nausea/Vomiting, 30 doses, Starting on Fri10/18/19 at 0900, Until Fri10/29/19 at 1716, Second line therapy if failed prochlorperazine with continued loss of appetite and > 3 episodes of vomiting. Do not administer if patient received palonosetron within 48 hours or exceed ondansetron 32 mg in 24 hours. Use IV if patient unable to tolerate oral administration. Allow tablet to dissolve on the tongue ondansetron (ZOFRAN) injection 4 mg 4 mg, Intravenous, EVERY 6 HOURS PRN, Nausea/Vomiting, 30 doses, Starting on Fri10/13/19 at 1528, Until Fri10/29/19 at 1716, Second line therapy if failed prochlorperazine with continued loss of appetite and > 3 episodes of vomiting. Do not administer if patient received palonosetron within 48 hours or exceed ondansetron 32 mg in 24 hours. Use IV if patient unable to tolerate oral administration. Administer over 2 to 5 minutes. oxyCODONE (immediate release) (ROXICODONE) tablet 10 mg 10 mg, Oral, EVERY 6 HOURS PRN, Moderate Pain, Starting on Fri10/27/19 at 2345, Until Ofelia 10/28/19 at 0637, 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 (NON-PROCEDURAL) $ Given 10/28/2019 6:31 AM CDT 10 mg $ Given 10/28/2019 1:29 AM CDT 10 mg oxyCODONE (immediate release) (ROXICODONE) tablet 10 mg 10 mg, Oral, EVERY 4 HOURS PRN, Moderate Pain, Starting on Ofelia 10/28/19 at 1000, Until Fri10/29/19 at 1716, 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 (NON-PROCEDURAL) $ Given 10/29/2019 5:45 AM CDT 10 mg $ Given 10/28/2019 11:46 PM CDT 10 mg $ Given 10/28/2019 6:25 PM CDT 10 mg oxyCODONE (immediate release) (ROXICODONE) tablet 5 mg 5 mg, Oral, EVERY 4 HOURS PRN, Moderate Pain, Starting on Fri10/13/19 at 1514, Until Fri10/27/19 at 2339, 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 (NON-PROCEDURAL) $ Given 10/27/2019 9:40 PM CDT 5 mg $ Given 10/27/2019 5:51 PM CDT 5 mg $ Given 10/25/2019 9:39 PM CDT 5 mg palonosetron (ALOXI) injection 0.25 mg 0.25 mg, Intravenous, ONCE, 1 dose, On 10/16/19 at 0900, Administer over 30 seconds. Administer 30 minutes prior to chemotherapy. $ Given 10/16/2019 8:50 AM CDT 0.25 mg palonosetron (ALOXI) injection 0.25 mg 0.25 mg, Intravenous, ONCE, 1 dose, On 10/18/19 at 1000, Administer over 30 seconds. Administer 30 minutes prior to chemotherapy. *Allow a minimum of 48 hours between palonosetron administrations. $ Given 10/18/2019 9:58 AM CDT 0.25 m g pantoprazole EC (PROTONIX) tablet 40 mg 40 mg, Oral, DAILY, First dose on Fri10/13/19 at 1515, Until Discontinued, Do not crush, chew, or cut in half., 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 (NON-PROCEDURAL) $ Given 10/29/2019 7:58 AM CDT 40 mg $ Given 10/28/2019 7:52 AM CDT 40 mg $ Given 10/27/2019 8:20 AM CDT 40 mg penicillin v potassium (VEETIDS) tablet 250 mg 250 mg, Oral, 2 TIMES DAILY, 15 doses, First dose on Fri10/13/19 at 2100, Last dose on Fri10/20/19 at 2100, STOP on day +1, 10/21/19, Indication for anti-infective therapy: Chronic prophylaxis, 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 (NON-PROCEDURAL) $ Given 10/20/2019 8:20 PM CDT 250 mg $ Given 10/20/2019 9:29 AM CDT 250 mg $ Given 10/19/2019 8:49 PM CDT 250 mg penicillin v potassium (VEETIDS) tablet 250 mg 250 mg, Oral, 2 TIMES DAILY, 15 doses, First dose (after last reorder) on Fri10/29/19 at 1100, Last dose on Fri11/05/19 at 0900, STOP on day +1, 10/21/19, Indication for anti-infective therapy: Chronic prophylaxis, 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 (NON-PROCEDURAL) $ Given 10/29/2019 11:08 AM CDT 250 mg polyethylene glycol 3350 (MIRALAX) packet 17 g 17 g, Oral, DAILY PRN, Constipation, Starting on Fri10/13/19 at 1514, Until Fri10/29/19 at 1716, Mix in 8 ounces of water, juice, soda, coffee or tea prior to administration, 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 (NON-PROCEDURAL) potassium chloride 40 mEq in 0.9% NaCl 270 mL bolus 40 mEq, at 67.5 mL/hr, Administer over 4 Hours, Intravenous, PRN, electrolyte replacement, Starting on Fri10/13/19 at 1514, Until Fri10/29/19 at 1716, Serum potassium 3 - 3.5 mmol/L, give KCl 40 mEq Serum potassium is less than 3 mmol/L, repeat 40 mEq for a total of 80 mEq. prochlorperazine (COMPAZINE) tablet 5 mg 5 mg, Oral, EVERY 8 HOURS PRN, Nausea/Vomiting, Starting on Fri10/13/19 at 1514, Until Fri10/29/19 at 1716, 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 (NON-PROCEDURAL) prochlorperazine (COMPAZINE) tablet 5 mg 5 mg, Oral, EVERY 4 HOURS PRN, Nausea/Vomiting, Starting on Fri10/13/19 at 1528, Until Fri10/29/19 at 1716, First line therapy for Grade 1 nausea, loss of appetite, or initial onset of vomiting 1-2 episodes. Use IV if patient unable to tolerate oral administration rOPINIRole (REQUIP) tablet 0.25 mg 0.25 mg, Oral, AT BEDTIME, First dose on Fri10/13/19 at 2100, Until Discontinued, 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 (NON-PROCEDURAL) $ Given 10/28/2019 8:01 PM CDT 0.25 mg $ Given 10/27/2019 7:58 PM CDT 0.25 mg $ Given 10/26/2019 8:06 PM CDT 0.25 mg saline nasal spray (OCEAN; BABY AYR) 0.65 % nasal spray 1 spray 1 spray, Each Nostril, EVERY 30 MIN PRN, Dry Nose, Starting on Fri10/22/19 at 0838, Until Fri10/29/19 at 1716 $ Given 10/29/2019 7:58 AM CDT 1 spray sulfamethoxazole-trimethoprim (BACTRIM DS; SEPTRA DS) 800-160 MG tablet 1 tablet 1 tablet, Oral, EVERY MON, FRI AND FRI, 2 doses, First dose on Fri10/13/19 at 1700, Last dose on Fri10/15/19 at 1700, Indication for anti-infective therapy: Chronic prophylaxis, 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 (NON-PROCEDURAL) $ Given 10/15/2019 4:48 PM CDT 1 tablet $ Given 10/13/2019 4:46 PM CDT 1 tablet tbo-filgrastim (GRANIX) prefilled syringe 480 mcg 480 mcg, Subcutaneous, ONCE, 1 dose, On Fri10/25/19 at 1800 $ Given 10/25/2019 5:10 PM CDT 480 mcg Abdominal Tissue tbo-filgrastim (GRANIX) prefilled syringe 480 mcg 480 mcg, Subcutaneous, ONCE, 1 dose, On Fri10/26/19 at 1800 $ Given 10/26/2019 6:07 PM CDT 480 mcg Abdominal Tissue tbo-filgrastim (GRANIX) prefilled syringe 480 mcg 480 mcg, Subcutaneous, ONCE, 1 dose, On Fri10/27/19 at 1800 $ Given 10/27/2019 5:45 PM CDT 480 mcg Abdominal Tissue tbo-filgrastim (GRANIX) prefilled syringe 480 mcg 480 mcg, Subcutaneous, ONCE, 1 dose, On Fri10/28/19 at 1800 $ Given 10/28/2019 5:56 PM CDT 480 mcg Abdominal Tissue valACYclovir (VALTREX) tablet 500 mg 500 mg, Oral, 2 TIMES DAILY, 200 doses, First dose on Fri10/13/19 at 2100, Last dose on Fri01/21/20 at 0900, Indication for anti-infective therapy: Chronic prophylaxis, 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 (NON-PROCEDURAL) $ Given 10/29/2019 7:58 AM CDT 500 mg $ Given 10/28/2019 8:02 PM CDT 500 mg $ Given 10/28/2019 7:52 AM CDT 500 mg documented in this encounter Active and Recently Administered Medications Times are shown in CDT. Scheduled Medication Order 10/27/2019 10/28/2019 10/29/2019 0.9% NaCl injection 10 mL 10 mL, Intracatheter, EVERY 8 HOURS, First dose on Fri10/13/19 at 1515, Until Discontinued, FLUSH, 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 (NON-PROCEDURAL) 0533 (Canceled Entry - Provider: Fatemeh Bolaños RN)1418 ($ Given - Provider: Izzy Garcia RN)1999 ($ Given - Provider: Fatemeh Bolaños RN) 0526 (Canceled Entry - Provider: Fatemeh Bolaños RN)1301 (Not Administered - Provider: Annabella Flores RN - Reason: See Comments - Comment: dose previously given)2030 (Canceled Entry - Provider: Fatemeh Bolaños RN) 0533 (Canceled Entry - Provider: Fatemeh Bolaños RN)1400 (Due) alteplase (CATHFLO ACTIVASE) injection 2 mg (COMPLETED) 2 mg, Intravenous, ONCE, 1 dose, On Ofelia 10/28/19 at 0915, Dilute 2 mg vial with 2.2 mL sterile water for final concentration of 1 mg/mL. 1. Instill the dose into the occluded catheter. 2. After 30 minutes of dwell time, assess catheter function by attempting to aspirate blood. 3. If catheter function has been restored, aspirate 4-5 mL of blood in patients weighing over 10 kg, or 3 mL in patients weighing under 10 kg, to remove Cathflo Activase and residual clot, and gently irrigate the catheter with 0.9% Sodium Chloride, GROUP HOME. Refrigerate 0916 ($ Given - Provider: Annabella Flores RN - Comment: red) alteplase (CATHFLO ACTIVASE) injection 2 mg (COMPLETED) 2 mg, Intravenous, ONCE, 1 dose, On Ofelia 10/28/19 at 0915, Dilute 2 mg vial with 2.2 mL sterile water for final concentration of 1 mg/mL. 1. Instill the dose into the occluded catheter. 2. After 30 minutes of dwell time, assess catheter function by attempting to aspirate blood. 3. If catheter function has been restored, aspirate 4-5 mL of blood in patients weighing over 10 kg, or 3 mL in patients weighing under 10 kg, to remove Cathflo Activase and residual clot, and gently irrigate the catheter with 0.9% Sodium Chloride, GROUP HOME. Refrigerate 0916 ($ Given - Provider: Annabella Flores RN - Comment: white) alteplase (CATHFLO ACTIVASE) injection 2 mg (COMPLETED) 2 mg, Intravenous, ONCE, 1 dose, On Fri10/29/19 at 0830, Dilute 2 mg vial with 2.2 mL sterile water for final concentration of 1 mg/mL. 1. Instill the dose into the occluded catheter. 2. After 30 minutes of dwell time, assess catheter function by attempting to aspirate blood. 3. If catheter function has been restored, aspirate 4-5 mL of blood in patients weighing over 10 kg, or 3 mL in patients weighing under 10 kg, to remove Cathflo Activase and residual clot, and gently irrigate the catheter with 0.9% Sodium Chloride, GROUP HOME. Refrigerate 0838 ($ Given - Provider: Annabella Flores RN - Comment: red line) bacitracin topical ointment Topical, 3 TIMES DAILY, First dose on Fri10/24/19 at 1445, Until Discontinued, Apply to area at dressing site 0830 ($ Given - Provider: Izzy Garcia RN - Comment: upper edge CVC drsg)1418 ($ Given - Provider: Izzy Garcia RN)1959 ($ Given - Provider: Fatemeh Bolaños RN) 0753 ($ Given - Provider: Annabella Flores RN)1316 ($ Given - Provider: Annabella Flores RN)2030 ($ Given - Provider: Fatemeh Bolaños RN) 0758 ($ Given - Provider: Annabella Flores RN)1400 (Due) cefepime (MAXIPIME) 2,000 mg in 0.9% NaCl 50 mL IVPB (CANCELED) 2,000 mg (2 g), at 100 mL/hr, Intravenous, EVERY 8 HOURS, First dose on Fri10/25/19 at 1030, Until Discontinued, Indication for anti-infective therapy: Suspected infection, Site of anti-infective therapy: Blood 0312 ($ New Bag/Syringe - Provider: Fatemeh Bolaños RN)0344 (Stopped - Provider: Fatemeh Bolaños RN)1012 ($ New Bag/Syringe - Provider: Izzy Garcia RN)1047 (Stopped - Provider: Izzy Garcia RN)1748 ($ New Bag/Syringe - Provider: Izzy Garcia RN)1821 (Stopped - Provider: Izzy Garcia RN) 0134 ($ New Bag/Syringe - Provider: Fatemeh Bolaños RN)0211 (Stopped - Provider: Fatemeh Bolaños RN)1003 ($ New Bag/Syringe - Provider: Annabella Flores RN)1035 (Stopped - Provider: Annabella Flores RN)1755 ($ New Bag/Syringe - Provider: Annabella Flores RN)1825 (Stopped - Provider: Annabella Flores RN) 0304 ($ New Bag/Syringe - Provider: Fatemeh Bolaños RN)0342 (Stopped - Provider: Fatemeh Bolaños RN) escitalopram (LEXAPRO) tablet 10 mg 10 mg, Oral, DAILY, First dose on Ofelia 10/14/19 at 0900, Until Discontinued, 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 (NON-PROCEDURAL) 0820 ($ Given - Provider: Izzy Garcia RN) 0752 ($ Given - Provider: Annabella Flores RN) 0758 ($ Given - Provider: Annabella Flores RN) heparin lock flush injection 500 Units 500 Units, Intravenous, 2 TIMES DAILY, First dose on Fri10/13/19 at 2100, Until Discontinued, 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, 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 (NON-PROCEDURAL) 0831 ($ Given - Provider: Izzy Garcia RN - Comment: x 3 ports)195 ($ Given - Provider: Fatemeh Bolaños RN) 075 ($ Given - Provider: Annabella Flores RN)2030 ($ Given - Provider: Fatemeh Bolaños RN) 0758 ($ Given - Provider: Annabella Flores RN) loratadine (CLARITIN) tablet 10 mg 10 mg, Oral, DAILY, First dose on Fri10/25/19 at 2100, Until Discontinued 0820 ($ Given - Provider: Izzy Garcia RN) 0752 ($ Given - Provider: Annabella Flores RN) 0758 ($ Given - Provider: Annabella Flores RN) micafungin (MYCAMINE) 50 mg in 0.9% NaCl IVPB (CANCELED) 50 mg, at 100 mL/hr, Intravenous, EVERY 24 HOURS, First dose on Fri10/20/19 at 0900, Until Discontinued, Flush line Pre/Post Dose with Normal Saline unless running NS as a carrier fluid. Store at room temperature. Protect diluted solution from light., Indication for anti-infective therapy: Chronic prophylaxis 0828 ($ New Bag/Syringe - Provider: Izzy Garcia RN)0929 (Stopped - Provider: Izzy Garcia RN) 0751 ($ New Bag/Syringe - Provider: Annabella Flores RN)0851 (Stopped - Provider: Annabella Flores RN) pantoprazole EC (PROTONIX) tablet 40 mg 40 mg, Oral, DAILY, First dose on Fri10/13/19 at 1515, Until Discontinued, Do not crush, chew, or cut in half., 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 (NON-PROCEDURAL) 0820 ($ Given - Provider: Izzy Garcia RN) 075 ($ Given - Provider: Annabella Flores RN) 0758 ($ Given - Provider: Annabella Flores RN) penicillin v potassium (VEETIDS) tablet 250 mg 250 mg, Oral, 2 TIMES DAILY, 15 doses, First dose (after last reorder) on Fri10/29/19 at 1100, Last dose on Fri11/05/19 at 0900, STOP on day +1, 10/21/19, Indication for anti-infective therapy: Chronic prophylaxis, 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 (NON-PROCEDURAL) 1108 ($ Given - Provider: Annabella Flores RN) rOPINIRole (REQUIP) tablet 0.25 mg 0.25 mg, Oral, AT BEDTIME, First dose on Fri10/13/19 at 2100, Until Discontinued, 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 (NON-PROCEDURAL) 1957 ($ Given - Provider: Fatemeh Bolaños RN) 2000 ($ Given - Provider: Fatemeh Bolaños RN) tbo-filgrastim (GRANIX) prefilled syringe 480 mcg (COMPLETED) 480 mcg, Subcutaneous, ONCE, 1 dose, On Fri10/27/19 at 1800 1745 ($ Given - Provider: Izzy Garcia RN) tbo-filgrastim (GRANIX) prefilled syringe 480 mcg (COMPLETED) 480 mcg, Subcutaneous, ONCE, 1 dose, On Fri10/28/19 at 1800 1756 ($ Given - Provider: Annabella Flores RN) valACYclovir (VALTREX) tablet 500 mg 500 mg, Oral, 2 TIMES DAILY, 200 doses, First dose on Fri10/13/19 at 2100, Last dose on Fri01/21/20 at 0900, Indication for anti-infective therapy: Chronic prophylaxis, 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 (NON-PROCEDURAL) 0820 ($ Given - Provider: Izzy Garcia RN)1957 ($ Given - Provider: Fatemeh Bolaños RN) 075 ($ Given - Provider: Annabella Flores RN)2001 ($ Given - Provider: Fatemeh Bolaños RN) 0758 ($ Given - Provider: Annabella Flores RN) PRN Medication Order 10/27/2019 10/28/2019 10/29/2019 0.9% NaCl injection 10 mL 10 mL, Intracatheter, PRN, Other, Starting on Fri10/13/19 at 1514, Until Fri10/29/19 at 1716, FLUSH PRN Until Discontinued, 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 (NON-PROCEDURAL) albuterol HFA (PROVENTIL;VENTOLIN;PROAIR ) 108 (90 Base) MCG/ACT inhaler 2 puff 2 puff, Inhalation, EVERY 4 HOURS PRN, Shortness of Breath, Wheezing, Starting on 10/23/19 at 2108, Until Fri10/29/19 at 1716, Shake well before using. WASTE DISPOSAL INSTRUCTION: Send to Pharmacy for Disposal. docusate sodium (COLACE) capsule 100 mg 100 mg, Oral, 2 TIMES DAILY PRN, Constipation, Starting on Fri10/13/19 at 1514, Until Fri10/29/19 at 1716, 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 (NON-PROCEDURAL) loperamide (IMODIUM) solution 2 mg 2 mg, Oral, EVERY 3 HOURS PRN, Diarrhea, Starting on 10/23/19 at 2304, Until Fri10/29/19 at 1716, Max dose 16mg/day LORazepam (ATIVAN) tablet 0.5 mg 0.5 mg, Oral, EVERY 8 HOURS PRN, Nausea/Vomiting, 30 doses, Starting on Fri10/13/19 at 1528, Until Fri10/29/19 at 1716, Use if patient is experiencing anxiety-related nausea or vomiting of any grade and/or has failed prochlorperazine and ondansetron. Use IV if patient unable to tolerate oral administration. magnesium sulfate 2 g in 50 mL bolus 2 g, at 25 mL/hr, Administer over 120 Minutes, Intravenous, PRN, Hypomagnesemia, Starting on Fri10/13/19 at 1514, Until Fri10/29/19 at 1716, If serum magnesium is then less than 1.4 mg/dL, infuse 2g IV Mag, if less than 1.1 repeat 2 gram dose one time for total dose of 4 g. methyl salicylate-menthol (ABIMAEL SILVA) ointment Topical, 4 TIMES DAILY PRN, Mild Pain, Starting on Fri10/27/19 at 2039, Until Fri10/29/19 at 1716, Apply to back 2140 ($ Given - Provider: Fatemeh Bolaños RN) 0759 ($ Given - Provider: Annabella Flores RN) morphine injection 2 mg (CANCELED) 2 mg, Intravenous, EVERY 4 HOURS PRN, Moderate Pain, Starting on 10/27/19 at 2336, Until Ofelia 10/28/19 at 1135 2345 ($ Given - Provider: Fatemeh Bolaños RN) 0440 ($ Given - Provider: Fatemeh Bolaños RN) morphine injection 4 mg (CANCELED) 4 mg, Intravenous, EVERY 4 HOURS PRN, Moderate Pain, Starting on Ofelia 10/28/19 at 1134, Until Ofelia 10/28/19 at 2144 1153 ($ Given - Provider: Annabella Flores RN)2002 ($ Given - Provider: Fatemeh Bolaños RN) morphine injection 4 mg 4 mg, Intravenous, EVERY 4 HOURS PRN, Severe Pain, Starting on Ofelia 10/28/19 at 1212, Until Fri10/29/19 at 1716 0101 ($ Given - Provider: Fatemeh Bolaños RN) ondansetron (disintegrating) (ZOFRAN ODT) tablet 4 mg 4 mg, Sublingual, EVERY 6 HOURS PRN, Nausea/Vomiting, 30 doses, Starting on 10/18/19 at 0900, Until Fri10/29/19 at 1716, Second line therapy if failed prochlorperazine with continued loss of appetite and > 3 episodes of vomiting. Do not administer if patient received palonosetron within 48 hours or exceed ondansetron 32 mg in 24 hours. Use IV if patient unable to tolerate oral administration. Allow tablet to dissolve on the tongue ondansetron (ZOFRAN) injection 4 mg 4 mg, Intravenous, EVERY 6 HOURS PRN, Nausea/Vomiting, 30 doses, Starting on Fri10/13/19 at 1528, Until Fri10/29/19 at 1716, Second line therapy if failed prochlorperazine with continued loss of appetite and > 3 episodes of vomiting. Do not administer if patient received palonosetron within 48 hours or exceed ondansetron 32 mg in 24 hours. Use IV if patient unable to tolerate oral administration. Administer over 2 to 5 minutes. oxyCODONE (immediate release) (ROXICODONE) tablet 10 mg (CANCELED) 10 mg, Oral, EVERY 6 HOURS PRN, Moderate Pain, Starting on Fri10/27/19 at 2345, Until Fri10/28/19 at 0637, 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 (NON-PROCEDURAL) 0129 ($ Given - Provider: Fatemeh Bolaños RN)0631 ($ Given - Provider: Fatemeh Bolaños RN) oxyCODONE (immediate release) (ROXICODONE) tablet 10 mg 10 mg, Oral, EVERY 4 HOURS PRN, Moderate Pain, Starting on Ofelia 10/28/19 at 1000, Until Fri10/29/19 at 1716, 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 (NON-PROCEDURAL) 1034 ($ Given - Provider: Annabella Flores RN)1428 ($ Given - Provider: Annabella Flores RN)1825 ($ Given - Provider: Annabella Flores RN)2346 ($ Given - Provider: Fatemeh Bolaños RN) 0545 ($ Given - Provider: Fatemeh Bolaños RN) oxyCODONE (immediate release) (ROXICODONE) tablet 5 mg (CANCELED) 5 mg, Oral, EVERY 4 HOURS PRN, Moderate Pain, Starting on Fri10/13/19 at 1514, Until Fri10/27/19 at 2339, 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 (NON-PROCEDURAL) 1751 ($ Given - Provider: Izzy Garcia RN)2140 ($ Given - Provider: Fatemeh Bolaños RN) polyethylene glycol 3350 (MIRALAX) packet 17 g 17 g, Oral, DAILY PRN, Constipation, Starting on Fri10/13/19 at 1514, Until Fri10/29/19 at 1716, Mix in 8 ounces of water, juice, soda, coffee or tea prior to administration, 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 (NON-PROCEDURAL) potassium chloride 40 mEq in 0.9% NaCl 270 mL bolus 40 mEq, at 67.5 mL/hr, Administer over 4 Hours, Intravenous, PRN, electrolyte replacement, Starting on Fri10/13/19 at 1514, Until Fri10/29/19 at 1716, Serum potassium 3 - 3.5 mmol/L, give KCl 40 mEq Serum potassium is less than 3 mmol/L, repeat 40 mEq for a total of 80 mEq. prochlorperazine (COMPAZINE) tablet 5 mg 5 mg, Oral, EVERY 8 HOURS PRN, Nausea/Vomiting, Starting on Fri10/13/19 at 1514, Until Fri10/29/19 at 1716, 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 (NON-PROCEDURAL) prochlorperazine (COMPAZINE) tablet 5 mg 5 mg, Oral, EVERY 4 HOURS PRN, Nausea/Vomiting, Starting on Fri10/13/19 at 1528, Until Fri10/29/19 at 1716, First line therapy for Grade 1 nausea, loss of appetite, or initial onset of vomiting 1-2 episodes. Use IV if patient unable to tolerate oral administration saline nasal spray (OCEAN; BABY AYR) 0.65 % nasal spray 1 spray 1 spray, Each Nostril, EVERY 30 MIN PRN, Dry Nose, Starting on Fri10/22/19 at 0838, Until Fri10/29/19 at 1716 0758 ($ Given - Provider: Annabella Flores RN) documented in this encounter Care Teams Centerpuncher Relationship Specialty Start Date End Date Ran Nuñez MD [address] [place] [id number] PCP - General Family Medicine 03/22/19 12/22/20 Hillary Apple MD [address] [place] [address] Hematology and Oncology 03/17/19 Bill Ferrera MD [address] [place] [address] Hematology and Oncology 03/17/19 08/27/21 Tony Dumont MD [address] [place] [address] Hematology and Oncology 03/17/19 Maryjo Reinoso, HISTORICAL MANUSCRIPTS CURATOR Bench Machine Operator 03/17/19 Madyson Clay, PharmD 03/17/19 Dana Lala, BINDERY CUTTER OPERATOR-FIRST AID TEACHER [address] [facility] [address] F[place] [place] [address] Oncology 03/17/19 Tiffanie Nguyen, BINDERY CUTTER OPERATOR-CLEAR COAT SPRAYER [address] [facility] [address]nd [place] [address] Family Medicine 03/17/19 Stephanie Mahoney, RN Registered Nurse 03/17/19 10/29/21 Alycia Galvan, RN 03/17/19 10/29/21 Cesar Tavares MD [address] [place] [address] [place] [id number] Referring Physician Medical Oncology 03/23/19 Karie Jones, RN Registered Nurse 06/08/19 10/29/21 Joy Bob 09/22/19 Addison Shea, PharmD Pharmacist 09/22/19 10/29/21 documented as of this encounter
--- OUTSIDE RECORDS SUMMARY | 2024-08-18 00:31 | XMS_ITS | Encounter Summary ---
Author Organization [facility] Address [address] [place] [address] Care Team Providers Care Aviation Electrical Technician Name Role Phone Hillary Apple MD Unavailable [phone] Bill Ferrera MD Unavailable [phone] Tony Dumont MD Unavailable Maryjo Reinoso [facility] Unavailable Unavailable Madyson Clay PharmD Unavailable Unavaila Dana Galicia [employer] INVESTIGATOR-INTERNATIONAL TAX MANAGER Unavailable [phone] Tiffanie Nguyen [employer] INVESTIGATOR-TOBACCO FLAVORER Unavailable [phone] Stephanie Mahoney RN Unavailable Unavailable Alycia Galvan RN Unavailable UnavailRan Mejía MD Primary Care Provider Cesar Tavares MD Unavailable [phone] Karie Jones RN Unavailable Unavailable Joy Bob Unavailable Fanta Addison Weinstein PharmD Unavailable Unavail le Reason for Visit * Reason Onset Date Comments Insurance Issue/question 10/01/2019 Encounter Details Date Type Department Care Team (Late st Contact Info) Description 10/01/2019 Telephone [facility] [address] [place] [address] Dana Lala, [employer] INVESTIGATOR-INTERNATIONAL TAX MANAGER [address] [facility] [place] [address] Insurance Issue/question Social History Tobacco Use Types Packs/Day Years [...] Miscellaneous Notes * Telephone Encounter - Dana Lala APRN-CNS - 10/01/2019 7:51 PM CONTENT DIRECTOR Called Mr. Guillen to outline that we are still working on getting his COBRA paid and that the person who was working on getting the payment done had to leave early today and the other person did not get the check done to pay for the October payment. I told him that we need to at least push back one more day and not start on Friday. He then said whatever and hung up the phone. I will ask his SIDE BOSS, Tiffanie to call him over the weekend to see how he is doing as this has clearly been a very stressful situation. Dana Lala APRN [facility] Blood and Marrow Transplant [facility] [phone] ENT DIRECTOR documented in this encounter Plan of Treatment Upcoming Encounters Date Type Department Care Team (Late st Contact Info) Description 08/26/2024 11:00 AM CONTENT DIRECTOR Office Visit [facility] - Pulmonology [address] [place] [address], [place] [address] Andrew Francis MD [address] [facility] 2L DIV OF PULMONARY/[place] [address] documented as of this encounter Visit Diagnoses Not on filedocumented in this encounter Care Teams Aviation Electrical Technician Relationship Specialty Start Date End Date Ran Nuñez MD [address] [place] [address] PCP - General Family Medicine 03/22/19 12/22/20 Hillary Apple MD [address] [place] [address] Hematology and Oncology 03/17/19 Bill Ferrera MD [address] [place] [address] Hematology and Oncology 03/17/19 08/27/21 Tony Dumont MD [address] [place] [address] Hematology and Oncology 03/17/19 Maryjo Reinoso, FIBROUS PLASTERER Offset Plate Preparation Supervisor 03/17/19 Madyson Clay, PharmD 03/17/19 Dana Lala APRN-INTERNATIONAL TAX MANAGER [address] [place] [address] 2nd [place] [address] Oncology 03/17/19 Tiffanie Nguyen APRN-TOBACCO FLAVORER [address] [place] [address] 2nd [place] [address] Family Medicine 03/17/19 Stephanie Mahoney, RN Registered Nurse 03/17/19 10/29/21 Alycia Galvan, ROSEMARY 03/17/19 10/29/21 Cesar Tavares MD [address] [place] [address] Referring Physician Medical Oncology 03/23/19 Karie Jones, RN Registered Nurse 06/08/19 10/29/21 Joy Bob 09/22/19 Addison Shea, PharmD Pharmacist 09/22/19 10/29/21 documented as of this encounter
--- OUTSIDE RECORDS SUMMARY | 2024-08-18 00:31 | XMS_ITS | Encounter Summary ---
Author Organization [facility] Address [address] [place] [address] Care Team Providers Care Tank Car Cleaner Name Role Phone Hillary Apple MD Unavailable [phone] Bill Ferrera MD Unavailable [phone] Tony Dumont MD Unavailable [phone] Shalini Segal MD Unavailable [phone] Maryjo Reinoso LCSW Unavailable Unavailable Madyson Clay PharmD Unavailable Unavaila Dana Galicia MANAGER OF COMPENSATION-MATE SHIP Unavailable [phone] Tiffanie Nguyen APRN-HOSPITAL CLEANER Unavailable [phone] Stephanie Mahoney RN Unavailable Unavailable Alycia Galvan RN Unavailable UnavailRan Mejía MD Primary Care Provider Cesar Tavares MD Unavailable [phone] Karie Jones RN Unavailable Unavailable Joy Bob Unavailable Fanta Addison Weinstein PharmD Unavailable Unavailab le Encounter Details Date Type Department Care Team (Late st Contact Info) Description 09/24/2019 Telephone [facility] [address] [place] [address] Tiffanie Nguyen APRN-HOSPITAL CLEANER [address] [place] [id number] Social History Tobacco Use Types Packs/Day Years [...] Telephone Encounter - Tiffanie Nguyen APRN-CNP - 09/24/2019 3:22 PM BUSINESS LEADER Called Aurelio to inform him that we delayed prep due to insurance. He will still come to clinic Friday09/27/19 for dressing change and we will update with new dates when able. MISSY Ball- Blood and Marrow Transplant Clinic [facility] NESS LEADER documented in this encounter Plan of Treatment Upcoming Encounters Date Type Department Care Team (Late st Contact Info) Description 08/26/2024 11:00 AM BUSINESS LEADER Office Visit [facility] - Pulmonology [address] [place] [address], [place] [id number] Andrew Francis MD [address] [place] [address] DIV OF PULMONARY/[place] [address] documented as of this encounter Visit Diagnoses Not on filedocumented in this encounter Care Teams Tank Car Cleaner Relationship Specialty Start Date End Date Ran Nuñez MD [address] [place] [address] PCP - General Family Medicine 03/22/19 12/22/20 Hillary Apple MD [facility] [place] [address] Hematology and Oncology 03/17/19 Bill Ferrera MD [address] [place] [address] Hematology and Oncology 03/17/19 08/27/21 Tony Dumont MD [address] [place] [address] Hematology and Oncology 03/17/19 Shalini Segal MD [address] [place] [address] Hematology and Oncology 03/17/19 09/29/19 Maryjo Reinoso, SHIRT CLOSER Change Management Specialist 03/17/19 Madyson Clay, PharmD 03/17/19 Dana Lala, MANAGER OF COMPENSATION-MATE SHIP [address] 2nd [place] [address] Oncology 03/17/19 Tiffanie Nguyen, MANAGER OF COMPENSATION-HOSPITAL CLEANER [facility] 2nd [place] [address] Family Medicine 03/17/19 Stephanie Mahoney, RN Registered Nurse 03/17/19 10/29/21 Alycia Galvan, RN 03/17/19 10/29/21 Cesar Tavares MD [address] [place] [address] Referring Physician Medical Oncology 03/23/19 Karie Jones, RN Registered Nurse 06/08/19 10/29/21 Joy Bob 09/22/19 Addison Shea, PharmD Pharmacist 09/22/19 10/29/21 documented as of this encounter
--- OUTSIDE RECORDS SUMMARY | 2024-08-18 00:31 | XMS_ITS | Encounter Summary ---
Author Organization [facility] Address [address] [facility] [place] [address] Care Team Providers Care Windows Server Specialist Name Role Phone Hillary Apple MD Unavailable [phone] Bill Ferrera MD Unavailable [phone] Tony Dumont MD Unavailable Maryjo ReinosoW Unavailable Unavailable Madyson Clay PharmD Unavailable Unavaila Dana Galicia RAILWAY SHUNTER-SOFTWARE TEST TECHNICIAN Unavailable [phone] Tiffanie Nguyen APRN-BARK FITTER Unavailable [phone] Stephanie Mahoney RN Unavailable Unavailable Alycia Galvan RN Unavailable UnavailRan Mejía MD Primary Care Provider Cesar Tavares MD Unavailable Karie Jones RN Unavailable Unavailable Joy Bob Unavailable Fanta Addison Weinstein PharmD Unavailable Unavailab le Encounter Details Date Type Department Care Team (Late st Contact Info) Description 10/03/2019 Telephone [facility] [address] [place] [address] Tiffanie Nguyen APRN-BARK FITTER [address] [place] [address] Social History Tobacco Use Types [...] Telephone Encounter - Tiffanie Nguyen APRN-CNP - 10/03/2019 11:17 AM HOT OILER Called Aurelio to discuss his prep start and delays that were communicated with him on Friday. He was very short with me on the phone, saying call me whenever you have things figured out . Explained our apologies for delaying but we didn't want him to get stuck with a self-pay hospitalization and needed to ensure payment was met for Cobra. Aurelio will need a dressing change (due Friday) and explained that we would need that changed either Friday or Friday, and he stated that he would continue to tape it down and wasn't concerned if it became infected . He voiced that he wouldn't come back here until we have arranged him prep start. Told Aurelio that we would call him Friday to touch base with a new plan, he laughed and said sure you will, I'll talk to you when I talk to you . Apologized again for the frustration and will follow up. Tiffanie Nguyen, M[facility]SY- Blood and Marrow Transplant Clinic [facility] OILER documented in this encounter Plan of Treatment Upcoming Encounters Date Type Department Care Team (Late st Contact Info) Description 08/26/2024 11:00 AM HOT OILER Office Visit [facility] - Pulmonology [address] [place] [address], [place] [address] Andrew Francis MD [address] [place] [address] 2L DIV OF PULMONARY/[place] [address] documented as of this encounter Visit Diagnoses Not on filedocumented in this encounter Care Teams Windows Server Specialist Relationship Specialty Start Date End Date Ran Nuñez MD [address] [place] [address] PCP - General Family Medicine 03/22/19 12/22/20 Hillary Apple MD [address] [place] [address] Hematology and Oncology 03/17/19 Bill Ferrera MD [address] [place] [address] Hematology and Oncology 03/17/19 08/27/21 Tony Dumont MD [address] [place] [address] Hematology and Oncology 03/17/19 Maryjo Reinoso, BLOOD BANK TECHNICIAN Epic Ambulatory Analyst 03/17/19 Madyson Clay, PharmD 03/17/19 Dana Lala APRN-SOFTWARE TEST TECHNICIAN [address] [place], [place] [address]TA [facility] 2nd [place] [address] Oncology 03/17/19 Tiffanie Nguyen APRN-BARK FITTER [address] [place], [place] [address]TA [facility] 2nd [place] [address] Family Medicine 03/17/19 Stephanie Mahoney, RN Registered Nurse 03/17/19 10/29/21 Alycia Galvan, ROSEMARY 03/17/19 10/29/21 Cesar Tavares MD [address] [place] [address] Referring Physician Medical Oncology 03/23/19 Karie Jones, ROSEMARY Registered Nurse 06/08/19 10/29/21 Joy Bob 09/22/19 Addison Shea, PharmD Pharmacist 09/22/19 10/29/21 documented as of this encounter
--- OUTSIDE RECORDS SUMMARY | 2024-08-18 00:31 | XMS_ITS | Encounter Summary ---
Author Organization [facility] Address [address] [place] [address] Care Team Providers Care Escalator Service Mechanic Name Role Phone Hillary Apple MD Unavailable [phone] Bill Ferrera MD Unavailable [phone] Tony Dumont MD Unavailable Maryjo ReinosoW Unavailable Unavailable Madyson Clay PharmD Unavailable Unavaila Dana Galicia SAT MATH TUTOR-WELDER FITTER APPRENTICE Unavailable [phone] Tiffanie Nguyen SAT MATH TUTOR-SMALL ANIMAL CARETAKER Unavailable [phone] Stephanie Mahoney RN Unavailable Unavailable Alycia Galvan RN Unavailable UnavailRan Mejía MD Primary Care Provider Cesar Tavares MD Unavailable Karie Jones RN Unavailable Unavailable Joy Bob Unavailable Fanta Addison Weinstein PharmD Unavailable Unavailab le Reason for Visit * Auth/Cert Specialty Diagnoses / Procedures Referred By Contac t Referred To Contact Diagnoses Diffuse large B-cell lymphoma, unspecified site (HCC) CHEMO Procedures CT TRANSPLT AUTOL HCT/DONOR Referral ID Status Reason Start Date Expiration Date Visits Re quested Visits Authorized [id number] 1 1 Encounter Details Date Type Department Care Team (Latest Contact Info) Description 10/13/2019 9:42 AM CDT - 10/13/2019 3:02 PM CDT Hospital Encounter [facility] [address] [place] [address] Bill Ferrera MD [address] [place] [address] Tiffanie Nguyen, SAT MATH TUTOR-SMALL ANIMAL CARETAKER [address] [place] [address] Discharge Disposition: Home or Self Care Social [...] Sign Reading Time Taken Comments Blood Pressure 138/84 10/13/2019 9:46 AM CDT Pulse 83 10/13/2019 9:46 AM CDT Temperature 36.3 ??C (97.4 ??F) 10/13/2019 9 :46 AM CDT Respiratory Rate 18 10/13/2019 9:46 AM CDT Oxygen Saturation 98% 10/13/2019 9:4 6 AM CDT Inhaled Oxygen Concentration - - Weight 120.7 kg (266 lb) 10/13/2019 9:4 6 AM CDT Height 171 cm (5' 7.32 ) 10/13/2019 7:0 0 AM CDT per arrival note Body Mass Index 41.26 10/13/2019 7:00 AM CDT documented in this encounter Functional [...] TABLET TWICE DAILY THEREAFTER DIRECTED. 09/27/2019 06/16/2020 ascorbic acid (VITAMIN C) 500 MG tablet Take 1,000 mg by mouth once daily 10/29/2019 BABY ASPIRIN PO Take 81 mg by mouth 10/28 diclofenac sodium EC (VOLTAREN) 75 MG tablet Take 75 mg by mouth 2 times daily 10/29/2019 escitalopram (LEXAPRO) 10 MG tablet Take 1 [...] every 6 hours as needed 04/27/2019 12/20/2021 documented as of this encounter Progress Notes * Tiffanie Nguyen, JOSE DAVID-SMALL ANIMAL CARETAKER - 10/13/2019 10:00 AM CDT Autologous Hematopoietic Stem Cell Daily Note: PATIENT IDENTIFIERS: MARCELLO LUIS is a 49 year old old year old male who is Day -7(Day 0 is 10/20/19) of an autologous peripheral blood stem cell transplant with a 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 INTERVAL HISTORY: Aurelio presents to clinic ambulatory to start prep. R neck clot tenderness improving No F/C/N/V/D Anxious to start prep finally No sick contacts No SOB or chest pain Discussed stopping diclofenac, which he gets really bad RLS, so will plan to start Requip inpatientwhile we hold diclofenac ROS: A comprehensive review of systems was [...] 1 capsule by mouth 2 times daily (Patient not taking: Reported on 10/13/2019), Disp: 60 capsule, Rfl: 0 ??? escitalopram (LEXAPRO) 10 MG tablet, Take 1 tablet by mouth once daily, Disp: 30 tablet, Rfl: 0 ??? ibuprofen (MOTRIN) 600 MG tablet, Take 1 tablet by mouth every 6 hours (Patient not taking: Reported on 10/13/2019), Disp: , Rfl: ??? Lansoprazole (PREVACID PO), [...] 2 times daily, Disp: 60 tablet, Rfl: 5 ??? polyethylene glycol 3350 (MIRALAX) packet, Take 17 g by mouth once daily, Disp: , Rfl: ??? prochlorperazine (COMPAZINE) 10 MG tablet, Take 10 mg by mouth every 6 hours as needed, Disp: ,Rfl: VITALS: Vitals: 10/13/19 0700 10/13/19 0946 BP: 138/84 Pulse: 83 Resp: 18 Temp: 97.4 ??F SpO2: 98% Weight: 120.7 kg (266 lb) Height: 1.71 m (5' 7.32 ) Wt Readings from Last 3 Encounters: 10/13/19 120.7 kg (266 lb) 10/05/19 118.8 kg (261 lb 14.4 oz) 09/30/19 117.6 kg (259 lb 3.2 oz) PHYSICAL EXAM: [place]ofksy/ECO/1 Physical Examination: General appearance - alert, well appearing, and in no distress Mental status - alert, oriented to person, place, and time Mouth - mucous membranes moist, pharynx normal without lesions Neck - supple, no significant adenopathy Chest - clear to auscultation, no wheezes, [...] tenderness LABS: Recent Labs Component Name 10/13/19 0951 09/30/19 1115 09/21/19 1413 09/21/19 0727 09/17/19 1149 WBC 5.7 7.3 66.1* 92.5* - 12.5* RBC 4.43 4.04* 3.65* 4.26* - 4.22* HGB 12.8* 11.9* 11.0* 12.6* - 12.5* HCT 39.4 36.1* 32.7* 38.3* - 38.1* MCV 88.9 89.4 89.6 89.9 - 90.3 MCH 28.9 29.5 30.1 29.6 - 29.6 MCHC 32.5 33.0 33.6 32.9 - 32.8 PLTCOUNT 431* 532* 135* 303 - 328 RDWSD 48.8 49.3 49.0 48.9 - 49.0 RDW 14.9* 15.1* 14.8 14.9* - 14.6 MPV 9.7 10.2 9.3 10.9 - 10.7 NRBCABS 0.00 0.00 0.12* 0.14* - 0.00 NRBCAUTOPCT 0.0 0.0 0.2* 0.2* - 0.0 NEUTPCT 52.7 61.5 - - - 68.1 LYMPHSPCT 28.0 19.0* - - - 17.0* MONOPCT 9.9 11.3 - - - 7.6 EOSPCT 5.8 6.8* 5 5 - 5.5 BASOPCT 3.2* 1.0 - - - 1.5 IMMGRANSPCT 0.4 0.4 - - - 0.3 NEUTABS 3.0 4.5 56.19* 69.38* - 8.5* LYMPHS 1.6 1.4 0.66* 3.70* - 2.1 MONO 0.56 0.82* 4.63* 9.25* - 0.95* EOS 0.33 0.49* 3.31* 4.63* - 0.69* BASO 0.18* 0.07* - 1.85* - 0.19* TOTCELLCNT - - 100 100 - - - = values in this interval not displayed. Recent Labs Component Name 10/13/19 0951 09/30/19 1115 09/21/19 0727 09/09/19 1242 BUN 13 18 - - 12 CREATININE 0.9 0.9 - - 0.9 NA 140 141 - - 142 POTASSIUM 4.3 4.3 4.1 - 4.2 CL 107 106 - - 108* CO2 24 26 - - 23 CALCIUM 9.3 9.6 - - 9.3 PROT 6.5 6.6 - - 6.5 ALB 3.9 3.7 - - 3.8 TBILI 0.2 0.3 - - 0.2 ALKPHOS 137 155* - - 108 ALT 46 58* - - 36 AST 20 23 - - 20 ANIONGAP 13 13 - - 15 BCR 14 20 - - 13 OSMOLALITY 291 293 - - 293 AGRATIO 1.5 1.3 - - 1.4 EGFR >60 >60 - - >60 - = values in this interval not displayed. Recent Labs Component Name 10/13/19 0951 09/30/19 1115 09/21/19 0727 MAGNESIUM 1.8 2.0 1.8 Recent Labs Component Name 10/13/19 0951 09/30/19 1115 09/09/19 1242 PHOS 2.4 2.9 3.6 Routine Monitoring: CMV Quant by PCR, Interp Date Value Ref Range Status 09/17/2019 Detected (Abnormal) Not Detected Final 09/09/2019 Detected (Abnormal) Not Detected Final RADIOGRAPHY: Right Neck US (09/28/19): clot in right IJ that goes into the proximal subclavian veing ASSESSMENT/PLAN: MARCELLO LUIS is a 49 year old year old year old male, who is Day -7 (Day 0 is 10/11/19) of an autologous [...] transfusion pre meds: none needed Planned prophylaxis: Bacterial:??pcn VK 250 mg BID until levaquin starts; levaquin 500 mg daily starting on day +1 maintain on PCN VK vs Levaquin post-splenectomy until he can be re-vaccinated and adequate titers demonstrated Fungal:??fluconazole 400 mg daily with prep start PJP:??Bactrim DS MWF until day -2 then again upon engraftment Viral:??ACV 400 mg BID >> Valtrex 500 mg BID while admitted IVIG given 08/18/19 after splenectomy Right IJ venous clot 09/27/19 -right neck US notes right IJ clot that goes into the proximal subclavian vein. -on Eliquis 5 mg BID outpatient, will plan to switch to lovenox 1mg/kg BID upon admission and will decrease to ppx lovenox when plts <30. [...] Cesar Tavares Disposition: Admit to 8N for chemotherapy and transplant care. MISSY [facility]- [facility] Trans[facility] Associated attestation - Hillary Apple MD - 10/13/2019 3:31 PM CDT I independently interviewed and examined Marcello Luis with the BMT advanced practice provider. I reviewed my findings and assessment with the advanced practice provider and the patient. I reviewed the below note. Please see note for full detail. Day -7 of BEAM RIJ clot clinically resolved, a-sx Stop Eliquis and start Lovenox full dose inpatient Change to proph Lovenox when plt < 30 and can stop Lovenox when plt drop Stop diclofenac and try Requip for RLS Hillary Apple MD MSc core piler Interim Director, Division of Hematology/Oncology [facility] documented in this encounter Plan of Treatment Upcoming Encounters Date Type Department Care Team (Late st Contact Info) Description 08/26/2024 11:00 AM HOME WEATHERIZING WORKER Office Visit [facility] - Pulmonology [address] [facility], [place] [id number] Andrew Francis MD [facility] [facility] 2L DIV OF PULMONARY/[place] [address] documented as of this encounter Procedures Procedure Name Priority Date/Time Associated Diagnosis Comments CBC W AUTO DIFFERENTIAL STAT 10/13/2019 9:51 AM CDT Diffuse large B-cell lymphoma, unspecified body region (HCC) COMPREHENSIVE METABOLIC PANEL STAT 10/13/2019 9:51 AM CDT Diffuse large B-cell lymphoma, unspecified body region (HCC) PHOSPHORUS BLOOD STAT 10/13/2019 9:51 AM CDT Diffuse large B-cell lymphoma, unspecified body region (HCC) MAGNESIUM BLOOD STAT 10/13/2019 9:51 AM CDT Diffuse large B-cell lymphoma, unspecified body region (HCC) documented in this encounter Results * PHOSPHORUS BLOOD (10/13/2019 9:51 AM CDT) Phosphorus 2.4 2.3 - 4.7 mg/dL 10/13/2019 10:31 AM CDT [facility] Blood BLOOD SPECIMEN / Unknown Venipuncture / Unknown 10/13/2019 9:51 AM CDT 10/13/2019 9:58 AM CDT Tiffanie Nguyen SAT MATH TUTOR-SMALL ANIMAL CARETAKER LAB - CHEMISTRY ORDERABLES [place] [address] [place], [place] [address] [place] [address] * MAGNESIUM BLOOD (10/13/2019 9:51 AM CDT) Magnesium 1.8 1.6 - 2.6 mg/dL 10/13/2019 10:31 AM CDT [facility] Blood BLOOD SPECIMEN / Unknown Venipuncture / Unknown 10/13/2019 9:51 AM CDT 10/13/2019 9:58 AM CDT Tiffanie Nguyen SAT MATH TUTOR-SMALL ANIMAL CARETAKER LAB - CHEMISTRY ORDERABLES [facility] [address] [place] [address] * (ABNORMAL) CBC W AUTO DIFFERENTIAL (10/13/2019 9:51 AM CDT) WBC 5.7 3.5 - 10.5 10? 3 /uL 10/13/2019 10:02 AM [facility] RBC 4.43 4.30 - 5.70 10? 6 /uL 10/13/2019 10:02 AM [facility] Hemoglobin 12.8(L) 13.5 - 17.5 g/dL 10/13/2019 10:02 AM [facility] Hematocrit 39.4 39.0 - 50.0 % 10/13/2019 10:02 AM [facility] MCV 88.9 81.0 - 97.0 fL 10/13/2019 10:02 AM [facility] MCH 28.9 28.0 - 34.0 pg 10/13/2019 10:02 AM [facility] MCHC 32.5 32.0 - 36.0 g/dL 10/13/2019 10:02 AM [facility] Platelet Count 431(H) 150 - 400 10? 3 /uL 10/13/2019 10:02 AM [facility] RDW-SD 48.8 36.0 - 50.0 fL 10/13/2019 10:02 AM [facility] RDW-CV 14.9(H) 11.2 - 14.8 % 10/13/2019 10:02 AM [facility] MPV 9.7 9.3 - 12.8 fL 10/13/2019 10:02 AM [facility] nRBC Absolute 0.00 0 10? 3 /uL 10/13/2019 10:02 AM [facility] nRBC Auto 0.0 0 /100 WBC 10/13/2019 10:02 AM [facility] Neutrophils % 52.7 35.0 - 70.0 % 10/13/2019 10:02 AM [facility] Lymphocytes % 28.0 19.7 - 55.1 % 10/13/2019 10:02 AM [facility] Monocytes % 9.9 3.0 - 15.0 % 10/13/2019 10:02 AM [facility] Eosinophils % 5.8 0.0 - 6.0 % 10/13/2019 10:02 AM [facility] Basophil % 3.2(H) 0.0 - 1.5 % 10/13/2019 10:02 AM [facility] Neutrophils Absolute 3.0 1.6 - 7.0 10? 3 /uL 10/13/2019 10:02 AM [facility] Lymphocyte Absolute 1.6 0.8 - 2.9 10? 3 /uL 10/13/2019 10:02 AM [facility] Monocytes Absolute 0.56 0.14 - 0.66 10? 3 /uL 10/13/2019 10:02 AM [facility] Eosinophils Absolute 0.33 0.00 - 0.45 10? 3 /uL 10/13/2019 10:02 AM [facility] Basophils Absolute 0.18(H) 0.00 - 0.06 10? 3 /uL 10/13/2019 10:02 AM [facility] Immature Granulocytes % 0.4 0.0 - 1.0 % 10/13/2019 10:02 AM [facility] Blood BLOOD SPECIMEN / Unknown Venipuncture / Unknown 10/13/2019 9:51 AM CDT 10/13/2019 9:58 AM CDT Tiffanie Nguyen SAT MATH TUTOR-SMALL ANIMAL CARETAKER LAB - HEMATOLOG Y ORDERABLES [facility] [address] [phone] * COMPREHENSIVE METABOLIC PANEL (10/13/2019 9:51 AM CDT) BUN 13 7 - 26 mg/dL 10/13/2019 10:31 AM [facility] Creatinine 0.9 0.6 - 1.2 mg/dL 10/13/2019 10:31 AM [facility] Sodium 140 136 - 145 mmol/L 10/13/2019 10:31 AM [facility] Potassium 4.3 3.5 - 4.5 mmol/L 10/13/2019 10:31 AM [facility] Chloride 107 98 - 107 mmol/L 10/13/2019 10:31 AM [facility] CO2 24 22 - 29 mmol/L 10/13/2019 10:31 AM [facility] Glucose 107 70 - 115 mg/dL 10/13/2019 10:31 AM [facility] Calcium 9.3 8.4 - 10.2 mg/dL 10/13/2019 10:31 AM [facility] Protein Total 6.5 6.0 - 8.3 g/dL 10/13/2019 10:31 AM [facility] Albumin 3.9 3.4 - 5.0 g/dL 10/13/2019 10:31 AM [facility] Bilirubin Total 0.2 0.2 - 1.2 mg/dL 10/13/2019 10:31 AM [facility] Alkaline Phosphatase 137 40 - 150 Units/L 10/13/2019 10:31 AM [facility] ALT 46 0 - 55 Units/L 10/13/2019 10:31 AM [facility] AST 20 5 - 34 Units/L 10/13/2019 10:31 AM [facility] Anion Gap 13 8 - 18 10/13/2019 10:31 AM [facility] BUN/Creatinine Ratio 14 7 - 23 10/13/2019 10:31 AM [facility] Osmolality Calculated 291 270 - 300 mOsm/kg 10/13/2019 10:31 AM [facility] Albumin/Globulin Ratio 1.5 1.1 - 2.3 10/13/2019 10:31 AM [facility] eGFR >60 >60 mL/min/1.7 3 m2 10/13/2019 10:31 AM [facility] Blood BLOOD SPECIMEN / Unknown Venipuncture / Unknown 10/13/2019 9:51 AM CDT 10/13/2019 9:58 AM CDT Tiffanie Nguyen SAT MATH TUTOR-SMALL ANIMAL CARETAKER LAB - CHEMISTRY ORDERABLES [facility] [address] [place] [address], [facility] [phone] documented in this encounter Visit Diagnoses Diagnosis Diffuse large B-cell lymphoma, unspecified body region (HCC)- Primary Awaiting organ transplant status Anxiety Anxiety state, unspecified Restless legs syndrome (RLS) documented in this encounter Administered Medications Inactive Administered Medications - up to 3 most recent administrations Medication Order MAR Action Action Date Dose Rate Site 0.9% NaCl infusion ADS Med 1 dose, Starting on Fri10/13/19 at 1042, Until Fri10/13/19 at 1044, Dayna Jarvisemer: cabinet override 0.9% NaCl infusion at 250 mL/hr, Intravenous, CONTINUOUS, Starting on Fri10/13/19 at 1045, Until Fri10/13/19 at 2244, Begin infusion at least 2 hours prior to carmustine. $ New Bag/Syringe 10/13/2019 10:44 AM CDT 1,000 mL 250 mL/hr carmustine (BCNU) 600 mg in dextrose 5 % 710 mL infusion 600 mg (300 mg/m2 ? 2 m2 Order-specific BSA), at 355 mL/hr, Administer over 120 Minutes, Intravenous, ONCE, 1 dose, On Fri10/13/19 at 1245, POLYOLEFIN BAG or Glass Container. Protect from light. . CAUTION - Vesicant. WASTE DISPOSAL INSTRUCTIONS: Chemo Bin Disposal required. $ New Bag/Syringe 10/13/2019 12:43 PM CDT 600 mg 355 mL/hr dexamethasone (DECADRON) tablet 8 mg 8 mg, Oral, ONCE, 1 dose, On Fri10/13/19 at 1200, Administer 30 minutes prior to chemotherapy. $ Given 10/13/2019 12:00 PM CDT 8 mg fluconazole (DIFLUCAN) tablet 400 mg 400 mg, Oral, ONCE, 1 dose, On Fri10/13/19 at 0830, Indication for anti-infective therapy: Chronic prophylaxis $ Given 10/13/2019 12:00 PM CDT 400 mg fosaprepitant (EMEND) 150 mg in 0.9% NaCl 250 mL IVPB 150 mg, at 500 mL/hr, Intravenous, ONCE, 1 dose, On Fri10/13/19 at 1200, Administer 30 minutes prior to chemotherapy. $ New Bag/Syringe 10/13/2019 12:02 PM CDT 150 mg 500 mL/hr palonosetron (ALOXI) injection 0.25 mg 0.25 mg, Intravenous, ONCE, 1 dose, On Fri10/13/19 at 1215, Administer over 30 seconds. Administer 30 minutes prior to chemotherapy. *Allow a minimum of 48 hours between palonosetron administrations. $ Given 10/13/2019 12:00 PM CDT 0.25 mg documented in this encounter Care Teams Escalator Service Mechanic Relationship Specialty Start Date End Date Ran Nuñez MD [address] [place] [address] [place] [id number] PCP - General Family Medicine 03/22/19 12/22/20 Hillary Apple MD [address] [place] [address] Hematology and Oncology 03/17/19 Bill Ferrera MD [address] [place] [address] Hematology and Oncology 03/17/19 08/27/21 Tony Dumont MD [address] [place] [address] Hematology and Oncology 03/17/19 Maryjo Reinoso, RED HAT ENGINEER Lapeler 03/17/19 Madyson Clay, PharmD 03/17/19 Dana Lala, SAT MATH TUTOR-WELDER FITTER APPRENTICE [address] [place] [address] [address] [place] [address] Oncology 03/17/19 Tiffanie Nguyen, SAT MATH TUTOR-SMALL ANIMAL CARETAKER [address] [place] [address] [address] [place] [address] Family Medicine 03/17/19 Stephanie Mahoney, RN Registered Nurse 03/17/19 10/29/21 Alycia Galvan, RN 03/17/19 10/29/21 Cesar Tava[place] [phone] Referring Physician Medical Oncology 03/23/19 Karie Jones, RN Registered Nurse 06/08/19 10/29/21 Joy Bob 09/22/19 Addison Shea, PharmD Pharmacist 09/22/19 10/29/21 documented as of this encounter
--- OUTSIDE RECORDS SUMMARY | 2024-08-18 00:31 | XMS_ITS | Encounter Summary ---
Author Organization [facility] Address [address] [facility] [place] [address] Care Team Providers Care Oil Speculator Name Role Phone Hillary Apple MD Unavailable [phone] Bill Ferrera MD Unavailable [phone] Tony Dumont MD Unavailable [phone] Shalini Segal MD Unavailable [phone] Karie Jones RN Unavailable Unavailable Maryjo Reinoso LCSW Unavailable Unavailable Madyson Clay PharmD Unavailable Unavaila Dana Galicia SOCIAL MEDIA INTERN-CYTOPATHOLOGIST Unavailable [phone] Tiffanie Nguyen SOCIAL MEDIA INTERN-NURSING STAFF DEVELOPMENT COORDINATOR Unavailable [phone] Stephanie Mahoney RN Unavailable Unavailable Alycia Galvan RN Unavailable UnavailRan Mejía MD Primary Care Provider Cesar Tavares MD Unavailable [phone] Karie Jones RN Unavailable Unavailable Joy Bob Unavailable Fanta Addison Weinstein PharmD Unavailable Unavailab Alida Chang SOCIAL MEDIA INTERN-NURSING STAFF DEVELOPMENT COORDINATOR Primary Care Provider Ran Nuñez MD Primary Care Provider Tony Dumont MD Unavailable [phone] Shalini Segal MD Unavailable Stefanie Burns RN Unavailable Unavaila Fatemeh Kelly RN Unavailable Unavailable Glenn Hernandez MD Unavailable [phone] Chandana Lu MD Unavailable Reason for Visit * Reason Comments Insurance Issue/question termination of insurance Encounter Details Date Type Department Care Team (Late st Contact Info) Description 09/20/2019 Telephone [facility] [address] [place] [address] Joy Bob Insurance Issue/question (termination of insurance) Social History Tobacco Use Types Packs/Day Years Used Date Smoking Tobacco: Former Cigarettes 0.5 18 1 - 2001 Smokeless Tobacco: Former Chew Quit: [...] encounter Miscellaneous Notes * Telephone Encounter - Joy Bob - 09/20/2019 12:18 PM TOOTH CUTTER CLUTCH Called and spoke with Mr. Guillen and discussed the termination of his insurance and find out if he has obtained a different insurance plan. Mr. Guillen stated he was not aware that his plan changed and was recently told. 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 He stated [employer] will be the coverage for his [facility] disability insurance, but they are waiting on a letter from the Human Resource Department. I asked Mr. Guillen if he spoke with or received any information from the HR Department about COBRA,he stated no. I asked and was giving the HR Department contact number [phone]. I informed Mr. Guillen that he will now be a self pay patient and if [employer] does not back date he maybe responsible for all claims unpaid from the date of termination. Mr. Guillen stated he completely understands, but has a back up plan, SSDI. I also informed him that I will give him the contact information he may need in the event he has to pay the claims out of pocket. Khushboo Desouza, Maryjo Brannon and Anastasia Nice notified in inactive coverage. H CUTTER CLUTCH documented in this encounter Plan of Treatment Upcoming Encounters Date Type Department Care Team (Late st Contact Info) Description 08/26/2024 11:00 AM TOOTH CUTTER CLUTCH Office Visit [facility] - Pulmonology [address] [place] [address], [place] [address] Andrew Francis MD [address] [place] [address] 2L DIV OF PULMONARY/[place] [address] documented as of this encounter Visit Diagnoses [...] COVID-19 Confirmed 03/06/2020 07/14/2020 0 4:33 AM TOOTH CUTTER CLUTCH COVID-19 Under Investigation 03/07/2020 03/07/2020 03/09/2020 8:54 AM CDT COVID-19 Under Investigation 03/29/2020 03/29/2020 03/30/2020 9:42 AM CDT COVID-19 Confirmed 08/31/2020 08/31/2020 4:34 AM TOOTH CUTTER CLUTCH COVID-19 Confirmed 09/28/2020 09/28/2020 4:33 AM TOOTH CUTTER CLUTCH COVID-19 Under Investigation 11/16/2020 11/16/2020 11/16/2020 6:52 PM CDT COVID-19 Confirmed 11/16/2020 11/16/2020 4:35 AM CDT COVID-19 Under Investigation 12/20/2020 12/20/2020 12/20/2020 6:23 PM CDT COVID-19 Under Investigation 04/21/2021 04/21/2021 2021 6:42 AM CDT documented as of this encounter Care Teams Oil Speculator Relationship Specialty Start Date End Date Ran Nuñez MD [address] [place] [phone] PCP - General Family Medicine 03/22/19 12/22/20 Alida Marshall APRN-NURSING STAFF DEVELOPMENT COORDINATOR [address] [place] [address] OF HEMATOLOGY & [place] [address] PCP - General Family Medicine 12/23/20 08/29/21 Ran Nuñez MD [address] [place] [address] PCP - General Family Medicine 08/30/21 [place] [address] [place] [address] PCP - Attributed-Charlottey DECLAN 03/04/23 08/21/23 Hillary Apple MD [address] [place] [address] Hematology and Oncology 03/17/19 Bill Ferrera MD [address] [place] [address] Hematology and Oncology 03/17/19 08/27/21 Tony Dumont MD [address] [place] [address] Hematology and Oncology 03/17/19 Shalini Segal MD [address] [place] [address] Hematology and Oncology 03/17/19 09/29/19 Karie Jones, RN Registered Nurse 03/17/19 09/21/19 Maryjo Reinoso, RESTAURANT BARTENDER Certified Control Systems Technician 03/17/19 Madyson Clay, PharmD 03/17/19 Dana Lala, SOCIAL MEDIA INTERN-CYTOPATHOLOGIST [address] [place] [address] [address] [place] [address] Oncology 03/17/19 Tiffanie Nguyen, SOCIAL MEDIA INTERN-NURSING STAFF DEVELOPMENT COORDINATOR [address] [place] [address] [address]nd [place] [address] Family Medicine 03/17/19 Stephanie Mahoney, RN Registered Nurse 03/17/19 10/29/21 Alycia Galvan, ROSEMARY 03/17/19 10/29/21 Cesar Tavares MD [address] [place] [address] [place] [address] Referring Physician Medical Oncology 03/23/19 Karie Jones, RN Registered Nurse 06/08/19 10/29/21 Joy Bob 09/22/19 Addison Shea, PharmD Pharmacist 09/22/19 10/29/21 Tony Dumont MD [address] [place] [address] Hematology and Oncology 10/30/21 Shalini Segal MD [address] [facility] OF HEMATOLOGY [place] [address] Medical Physicist/Oncologis t Hematology and Oncology 10/30/21 Stefanie Burns, ROSEMARY Registered Nurse 10/30/21 Fatemeh Bolaños, RN Registered Nurse 10/30/21 Chandana Lu MD [address] [place] [address] Orthopedic Surgery 03/30/24 documented as of this encounter
--- OUTSIDE RECORDS SUMMARY | 2024-08-18 00:32 | XMS_ITS | Encounter Summary ---
Author Organization [facility] Address [address] [facility] [place] [address] Care Team Providers Care Cvor Nurse Name Role Phone Hillary Apple MD Unavailable [phone] Bill Ferrera MD Unavailable [phone] Tony Dumont MD Unavailable [phone] Shalini Segal MD Unavailable [phone] Karie Jones RN Unavailable Unavailable Maryjo Reinoso LCSW Unavailable Unavailable Madyson Clay PharmD Unavailable Unavaila Dana Galicia FIRE SPRINKLER SERVICE TECHNICIAN-ESCROW MANAGER Unavailable [phone] Tiffanie Nguyen FIRE SPRINKLER SERVICE TECHNICIAN-PROFESSOR OF ART Unavailable [phone] Stephanie Mahoney RN Unavailable Unavailable Alycia Galvan RN Unavailable UnavailRan Mejía MD Primary Care Provider Cesar Tavares MD Unavailable [phone] Karie Jones RN Unavailable Unavailable Reason for Visit * Oncology Prior Authorization (Routine) - Closed Specialty Diagnoses / Procedures Referred By Contac t Referred To Contact Diagnoses B-cell lymphoma, unspecified B-cell lymphoma type, unspecified body region (HCC) Hillary Apple MD [address] [facility] [place] [address] [facility] [address] [place] [address] Referral ID Status Reason Start Date Expiration Date Visits Re quested Visits Authorized [id number] Closed 09/16/2019 03/14/2020 1 1 Encounter Details Date Type Department Care Team (Latest Contact Info) Description 09/19/2019 7:04 AM GUEST SERVICES ASSOCIATE - 09/19/2019 11:59 PM GUEST SERVICES ASSOCIATE Hospital Encounter [facility] [address] [place] [address] Bill Ferrera MD [address] [place] [address] Rd [address] [place] [address] Discharge Disposition: Home or Self Care Social [...] Sign Reading Time Taken Comments Blood Pressure 126/78 09/19/2019 10:32 AM GUEST SERVICES ASSOCIATE Pulse 87 09/19/2019 10:32 AM GUEST SERVICES ASSOCIATE Temperature 36.6 ??C (97.9 ??F) 09/19/2019 1 0:32 AM GUEST SERVICES ASSOCIATE Respiratory Rate 18 09/19/2019 10:3 2 AM GUEST SERVICES ASSOCIATE Oxygen Saturation 98% 09/19/2019 10: 32 AM GUEST SERVICES ASSOCIATE Inhaled Oxygen Concentration - - Weight 117.9 kg (259 lb 14.4 oz) 2019 10:32 AM GUEST SERVICES ASSOCIATE Height - - Body Mass Index 40.11 09/17/2019 9:50 AM GUEST SERVICES ASSOCIATE documented in this encounter Functional Status Functional [...] as of this encounter Progress Notes * Dana Lala APRN-CNS - 09/19/2019 11:00 AM CST Reason for visit: I was asked to look at the rash on his back that he felt was new and to f/u on the pain in the bones of lower back. Interval History: States he noticed a pale pimple like rash on the back starting today and maybe last night. No otherrash noted. Does not really itch, no scratchy throat, ears or other symptoms of systemic allergic reaction. He reports that his pain is better. Not gone, but better Impression/Plan: It appears that this may be a mild acne like rash, does not look like allergy b/c just on back only- but this is possible. The pain appears to be doing better with the use of oxy and tylenol alternating with ibuprofen. PLAN: 1. I told him we could just watch the rash as it is very faint and not very diffuse or even impressive 2. He will continue the oxy/ibuprofen/tylenol for the pain. He is also using heat and ice alternating that he feels helps him. 3. He knows to call for worsening of symptoms Dana Lala APRN [facility] Marrow Transplant Program [phone] T SERVICES ASSOCIATE documented in this encounter Plan of Treatment Upcoming Encounters Date Type Department Care Team (Late st Contact Info) Description 08/26/2024 11:00 AM GUEST SERVICES ASSOCIATE Office Visit [facility] - Pulmonology [address] [place] [address], [place] [address] Andrew Francis MD [address] [place] [address] OF PULMONARY/[place] [address] documented as of this encounter Visit Diagnoses Diagnosis B-cell lymphoma, unspecified B-cell lymphoma type, unspecified body region (HCC)- Primary Rash and other nonspecific skin eruption documented in this encounter Administered Medications Inactive Administered Medications - up to 3 most recent administrations Medication Order MAR Action Action Date Dose Rate Site filgrastim (NEUPOGEN) injection 1,200 mcg 1,200 mcg (rounded from 1,198 mcg = 10 mcg/kg ? 119.8 kg Treatment plan Recorded weight), Subcutaneous, ONCE, 1 dose, On 09/19/19 at 0900 $ Given 09/19/2019 10:35 AM GUEST SERVICES ASSOCIATE 1,200 mcg Abd Right Lower Quadrant documented in this encounter Care Teams Cvor Nurse Relationship Specialty Start Date End Date Ran Nuñez MD [address] [place] [address] PCP - General Family Medicine 03/22/19 12/22/20 Hillary Apple MD [address] [place] [address] Hematology and Oncology 03/17/19 Bill Ferrera MD [address] [place] [address] Hematology and Oncology 03/17/19 08/27/21 Tony Dumont MD [address] [place] [address] Hematology and Oncology 03/17/19 Shalini Segal MD [address] [place] [address] Hematology and Oncology 03/17/19 09/29/19 Karie Jones, ROSEMARY Registered Nurse 03/17/19 09/21/19 Maryjo Reinoso, REYNA Environmental Test Technician 03/17/19 Madyson Clay, PharmD 03/17/19 Dana Lala FIRE SPRINKLER SERVICE TECHNICIAN-ESCROW MANAGER [address] [place] [address] 2nd [place] [address] Oncology 03/17/19 Tiffanie Nguyen, FIRE SPRINKLER SERVICE TECHNICIAN-PROFESSOR OF ART [address] 2nd [place] [address] Family Medicine 03/17/19 Stephanie Mahoney, RN Registered Nurse 03/17/19 10/29/21 Alycia Galvan, RN 03/17/19 10/29/21 Cesar Tavares MD [address] [place] [address] Referring Physician Medical Oncology 03/23/19 Karie Jones, RN Registered Nurse 06/08/19 10/29/21 documented as of this encounter
--- OUTSIDE RECORDS SUMMARY | 2024-08-18 00:32 | XMS_ITS | Encounter Summary ---
Author Organization [facility] Address [address] [facility] [place] [address] Care Team Providers Care Resident Physician In Radiology Name Role Phone Hillary Apple MD Unavailable [phone] Bill Ferrera MD Unavailable [phone] Tony Dumont MD Unavailable [phone] Shalini Segal MD Unavailable [phone] Karie Jones RN Unavailable Unavailable Maryjo Reinoso DIRECTOR PERSONAL Unavailable Unavailable Madyson Clay PharmD Unavailable Unavaila Dana Galicia CRISIS SPECIALIST-HOUSING INSPECTORS Unavailable [phone] Tiffanie Nguyen APRN-FINANCE LECTURER Unavailable [phone] Stephanie Mahoney RN Unavailable Unavailable Alycia Galvan RN Unavailable UnavailRan Mejía MD Primary Care Provider Cesar Tavares MD Unavailable [phone] Karie Jones RN Unavailable Unavailable Joy Bob Unavailable Fanta Addison Weinstein PharmD Unavailable Unavailab shannan Encounter Details Date Type Department Care Team (Late st Contact Info) Description 09/16/2019 Telephone [facility] [address] [place] [address] Tiffanie Nguyen APRN-FINANCE LECTURER [address] [place] [address] Social History Tobacco Use Types Packs/Day Years [...] Contact Info) Description 08/26/2024 11:00 AM CLINICAL ADMINISTRATIVE COORDINATOR Office Visit [facility] - Pulmonology [address] [place] [address] [address] Andrew Francis MD [address] [place] [address] 2L DIV OF PULMONARY/[place] [address] documented as of this encounter Visit Diagnoses Not on filedocumented in this encounter Care Teams Resident Physician In Radiology Relationship Specialty Start Date End Date Ran Nuñez MD [address] [place] [address] PCP - General Family Medicine 03/22/19 12/22/20 Hillary Apple MD [address] [place] [address] Hematology and Oncology 03/17/19 Bill Ferrera MD [address] [place] [address] Hematology and Oncology 03/17/19 08/27/21 Tony Dumont MD [address] [place] [address] Hematology and Oncology 03/17/19 Shalini Segal MD [address] [place] [address] Hematology and Oncology 03/17/19 09/29/19 Karie Jones, RN Registered Nurse 03/17/19 09/21/19 Maryjo Reinoso, DIRECTOR PERSONAL Tripper 03/17/19 Madyson Clay, PharmD 03/17/19 Dana Lala, CRISIS SPECIALIST-HOUSING INSPECTORS [address] [place] [address] 2nd [place] [address] Oncology 03/17/19 Tiffanie Nguyen, CRISIS SPECIALIST-FINANCE LECTURER [address] [place] [address] 2nd [place] [address] Family Medicine 03/17/19 Stephanie Mahoney, RN Registered Nurse 03/17/19 10/29/21 Alycia Galvan, ROSEMARY 03/17/19 10/29/21 Cesar Tavares MD [address] [place] [address] [place] [address] Referring Physician Medical Oncology 03/23/19 Karie Jones, RN Registered Nurse 06/08/19 10/29/21 Joy Bob 09/22/19 Addison Shea, PharmD Pharmacist 09/22/19 10/29/21 documented as of this encounter
--- OUTSIDE RECORDS SUMMARY | 2024-08-18 00:32 | XMS_ITS | Encounter Summary ---
Author Organization [facility] Address [address] [facility] [address] Care Team Providers Care Remote Sensing Engineer Name Role Phone Hillary Apple MD Unavailable [phone] Bill Ferrera MD Unavailable [phone] Tony Dumont MD Unavailable [phone] Shalini Segal MD Unavailable [phone] Karie Jones RN Unavailable Unavailable Maryjo Reinoso LCSW Unavailable Unavailable Madyson Clay PharmD Unavailable Unavaila Dana Galicia ASSOCIATE APPLICATION DEVELOPER-NATIONAL FLATBED TRUCK DRIVER Unavailable [phone] Tiffanie Nguyen ASSOCIATE APPLICATION DEVELOPER-FARM MANAGER Unavailable [phone] Stephanie Mahoney RN Unavailable Unavailable Alycia Galvan RN Unavailable UnavailRan Mejía MD Primary Care Provider Cesar Tavares MD Unavailable [phone] Karie Jones RN Unavailable Unavailable Encounter Details Date Type Department Care Team (Late st Contact Info) Description 09/14/2019 1:30 PM DATA COMMUNICATIONS SOFTWARE CONSULTANT - 09/14/2019 11:59 PM DATA COMMUNICATIONS SOFTWARE CONSULTANT Hospital Encounter [facility] [address] [place] [address] Katia Roque APRN-FARM MANAGER [address] [facility] ONCOL[facility] [place], [place] [id number] Monica Latif ASSOCIATE APPLICATION DEVELOPER-FARM MANAGER [address] [place] [address] Discharge Disposition: Home or Self [...] Sign Reading Time Taken Comments Blood Pressure 113/67 09/14/2019 1:43 PM DATA COMMUNICATIONS SOFTWARE CONSULTANT Pulse 81 09/14/2019 1:43 PM DATA COMMUNICATIONS SOFTWARE CONSULTANT Temperature 36.8 ??C (98.3 ??F) 09/14/2019 1:43 PM CS T Respiratory Rate 18 09/14/2019 1:43 PM DATA COMMUNICATIONS SOFTWARE CONSULTANT Oxygen Saturation 98% 09/14/2019 1:43 PM DATA COMMUNICATIONS SOFTWARE CONSULTANT Inhaled Oxygen Concentration - - Weight 119.8 kg (264 lb 0.7 oz) 09/14/2019 1:43 PM DATA COMMUNICATIONS SOFTWARE CONSULTANT Height - - Body Mass Index 40.74 08/26/2019 12:03 PM DATA COMMUNICATIONS SOFTWARE CONSULTANT documented in this encounter Functional Status Functional [...] by mouth every 4 hours as needed for Pain 30 tablet 08/19/2019 09/17/2019 penicillin v potassium (VEETIDS) 250 MG tablet Take 1 tablet by mouth 2 times daily 60 tablet 5 08/11/2019 03/13/2021 polyethylene glycol 3350 (MIRALAX) packet Take 17 g by mouth once daily as needed for Constipation 10/29/2019 prochlorperazine (COMPAZINE) 10 MG tablet Take 10 mg by mouth every 6 hours as needed 04/27/2019 12/21/19 22 documented as of this encounter Miscellaneous Notes * BMT.06-Support Services - Karie Jones RN - 09/14/2019 11:59 PM DATA COMMUNICATIONS SOFTWARE CONSULTANT The patient was provided consents for the below study in advance of signing them today. The patient meets all eligibility criteria for enrollment into the CIBMTR/NMDP 05435 studies. The details of the research protocol including but not limited to: the purpose of the research, the procedures ladan followed, the risks and discomforts as well as potential benefits associated with participation, and alternative procedures or treatments, if any, were reviewed and discussed with the subject. Subject was given time to ask questions, and all questions were answered. The subject voluntarily consented to participate in this protocol. Consent was signed prior to any study-related procedures being performed. COMMUNICATIONS SOFTWARE CONSULTANT documented in this encounter Plan of Treatment Upcoming Encounters Date Type Department Care Team (Late st Contact Info) Description 08/26/2024 11:00 AM DATA COMMUNICATIONS SOFTWARE CONSULTANT Office Visit [facility] - Pulmonology [address] [place] [address], [facility] [place] [address] Andrew Francis MD [address] [place] [address] DIV OF PULMONARY/[place] [address] documented as of this encounter Visit Diagnoses Not on filedocumented in this encounter Care Teams Remote Sensing Engineer Relationship Specialty Start Date End Date Ran Nuñez MD [address] [place] [address] [place] [phone] PCP - General Family Medicine 03/22/19 12/22/20 Hillary Apple MD [address] [place] [address] Hematology and Oncology 03/17/19 Bill Ferrera MD [address] [place] [address] Hematology and Oncology 03/17/19 08/27/21 Tony Dumont MD [address] [place] [address] Hematology and Oncology 03/17/19 Shalini Segal MD [address] [place] [address] Hematology and Oncology 03/17/19 09/29/19 Karie Jones, RN Registered Nurse 03/17/19 09/21/19 Maryjo Reinoso, SOFT HAT BINDER Chief Medical Technologist 03/17/19 aMdyson Clay, PharmD 03/17/19 Dana Lala, ASSOCIATE APPLICATION DEVELOPER-NATIONAL FLATBED TRUCK DRIVER [address] [facility] 2nd [place] [address] Oncology 03/17/19 Tiffanie Nguyen, ASSOCIATE APPLICATION DEVELOPER-FARM MANAGER [address] [place] [address] Family Medicine 03/17/19 Stephanie Mahoney RN Registered Nurse 03/17/19 10/29/21 Alycia Galvan, ROSEMARY 03/17/19 10/29/21 Cesar Tavares MD [address] [place] [address] Referring Physician Medical Oncology 03/23/19 Karie Jones, RN Registered Nurse 06/08/19 10/29/21 documented as of this encounter
--- OUTSIDE RECORDS SUMMARY | 2024-08-18 00:32 | XMS_ITS | Encounter Summary ---
Author Organization [facility] Address [address] [place] [address] Care Team Providers Care Department Editor Name Role Phone Hillary Apple MD Unavailable [phone] Bill Ferrera MD Unavailable [phone] Tony Dumont MD Unavailable [phone] Shalini Segal MD Unavailable [phone] Karie Jones RN Unavailable Unavailable Maryjo Reinoso LCSW Unavailable Unavailable Madyson Clay PharmD Unavailable Unavaila Dana Galicia MANUFACTURING PLANT MANAGER-COMPLIANCE ASSISTANT Unavailable [phone] Tiffanie Nguyen MANUFACTURING PLANT MANAGER-BELLMAN DRIVER Unavailable [phone] Stephanie Mahoney RN Unavailable Unavailable Alycia Galvan RN Unavailable UnavailRan Mejía MD Primary Care Provider Cesar Tavares MD Unavailable [phone] Karie Jones RN Unavailable Unavailable Reason for Referral * Procedure (Routine) - Closed Specialty Diagnoses / Procedures Referred By Deng meraz Referred To Contact Cardiology Diagnoses Pre-transplant evaluation for stem cell transplant Procedures EKG 12-LEAD Tiffanie Nguyen APRN-BELLMAN DRIVER [address] [place] [address] Referral ID Status Reason Start Date Expiration Date Visits Re quested Visits Authorized [id number] Closed 06/28/2019 12/25/2019 1 1 SAW OPERATOR HELPER Encounter Details Date Type Department Care Team (Latest Contact Info) Description 09/09/2019 10:51 AM BUZZSAW OPERATOR HELPER - 09/09/2019 10:54 AM BUZZSAW OPERATOR HELPER Hospital Encounter [facility] EKG/[facility]OLTER [address] [place] [address] Tiffanie Nguyen APRN-CNP [address] [place] [address] Discharge Disposition: Home or Self Care Social [...] st Contact Info) Description 08/26/2024 11:00 AM BUZZSAW OPERATOR HELPER Office Visit [facility] - Pulmonology [address] [place] [address], [place] [address] Andrew Francis MD [address] [place] [address] OF PULMONARY/[place] [address] documented as of this encounter Procedures Procedure Name Priority Date/Time Associated Diagnosis Comments EKG 12-LEAD Routine 09/09/2019 11:08 AM BUZZSAW OPERATOR HELPER Pre-transplant evaluation for stem cell transplant documented in this encounter Results * EKG 12-LEAD (09/09/2019 11:08 AM BUZZSAW OPERATOR HELPER) Ventricular Rate 73 BPM [facility] Atrial Rate 73 BPM [facility] P-R Interval 144 ms [facility] QRS Duration ms 76 ms [facility] Q-T Interval ms 380 ms [facility] QTC Calculation (Bezet) 418 ms [facility] Calculated P Mckenna 33 degrees [facility] Calculated R Mckenna 82 degrees [facility] Calculated T Mckenna 66 degrees [facility] Interpretation EKG NORMAL SINUS RHYTHM NORMAL ECG NO PREVIOUS ECGS AVAILABLE Confirmed by Vickey Mensah ([id number]), sports editor RENALDO LOONEY ([id number]) on 09/17/2019 6:11:29 PM Also confirmed by Vickey Mensah ([id number]), sports editor Elida Graham ([id number]) ??on 12/31/2019 3:14:02 PM [facility] MUSE 09/09/2019 11:0 8 AM BUZZSAW OPERATOR HELPER 12/31/2019 3:14 PM CDT Tiffanie Nguyen MANUFACTURING PLANT MANAGER-BELLMAN DRIVER ECG ORDERABLES [facility] [place] documented in this encounter Visit Diagnoses Diagnosis Pre-transplant evaluation for stem cell transplant documented in this encounter Care Teams Department Editor Relationship Specialty Start Date End Date Ran Nuñez MD [address] [place] [address] PCP - General Family Medicine 03/22/19 12/22/20 Hillary Apple MD [address] [place], [place] [id number] Hematology and Oncology 03/17/19 Bill Ferrera MD [address] [place] [address] Hematology and Oncology 03/17/19 08/27/21 Tony Dumont MD [address] [place] [address] Hematology and Oncology 03/17/19 Shalini Segal MD [address] [place] [address] Hematology and Oncology 03/17/19 09/29/19 Karie Jones, RN Registered Nurse 03/17/19 09/21/19 Maryjo Reinoso LCSW Coding Spec 03/17/19 Madyson Clay, PharmD 03/17/19 Dana Lala, MANUFACTURING PLANT MANAGER-COMPLIANCE ASSISTANT [address] [facility] 2[place] [address] Oncology 03/17/19 Tiffanie Nguyen, MANUFACTURING PLANT MANAGER-BELLMAN DRIVER [address] [place] [address] 2nd [place] [address] Family Medicine 03/17/19 Stephanie Mahoney, RN Registered Nurse 03/17/19 10/29/21 Alycia Galvan, ROSEMARY 03/17/19 10/29/21 Cesar Tavares MD [address] [place] [address] [place] [address] Referring Physician Medical Oncology 03/23/19 Karie Jones, RN Registered Nurse 06/08/19 10/29/21 documented as of this encounter
--- OUTSIDE RECORDS SUMMARY | 2024-08-18 00:32 | XMS_ITS | Encounter Summary ---
Author Organization [facility] Address [address] [place] [address] Care Team Providers Care Interviewing Clerk Name Role Phone Hillary Apple MD Unavailable [phone] Bill Ferrera MD Unavailable [phone] Tony Dumont MD Unavailable [phone] Shalini Segal MD Unavailable [phone] Karie Jones RN Unavailable Unavailable Maryjo ReinosoW Unavailable Unavailable Madyson Clay PharmD Unavailable Unavaila Dana Galicia STARTING GATE DRIVER-ANALYTICS ANALYST Unavailable [phone] Tiffanie Nguyen STARTING GATE DRIVER-BLIND TEACHER Unavailable [phone] Stephanie Mahoney RN Unavailable Unavailable Alycia Galvan RN Unavailable UnavailRan Mejía MD Primary Care Provider Cesar Tavares MD Unavailable [phone] Karie Jones RN Unavailable Unavailable Encounter Details Date Type Department Care Team (Late st Contact Info) Description 09/09/2019 Orders Only [facility] B[facility] CLIN[facility] [address] [place] [address] Tiffanie Nguyen APRN-BLIND TEACHER [address] [place] [address] Pre-transplant evaluation for stem cell transplant Social History Tobacco Use Types Packs/Day Years [...] Contact Info) Description 08/26/2024 11:00 AM PHYSICAL THERAPIST ASSISTANT Office Visit [facility] - Pulmonology [address] [place] [address], [place] [phone] Andrew Francis MD [address] [place] [address] 2L DIV OF PULMONARY/[place] [address] documented as of this encounter Visit Diagnoses Diagnosis Pre-transplant evaluation for stem cell transplant- Primary documented in this encounter Care Teams Interviewing Clerk Relationship Specialty Start Date End Date Ran Nuñez MD [address] [place] [address] PCP - General Family Medicine 03/22/19 12/22/20 Hillary Apple MD [address] [place] [address] Hematology and Oncology 03/17/19 Bill Ferrera MD [address] [place] [address] Hematology and Oncology 03/17/19 08/27/21 Tony Dumont MD [address] [place] [address] Hematology and Oncology 03/17/19 Shalini Segal MD [address] [place] [address] Hematology and Oncology 03/17/19 09/29/19 Karie Jones, RN Registered Nurse 03/17/19 09/21/19 Maryjo Reinoso, MULTICULTURAL MANAGER Nca Certified Concierge 03/17/19 Madyson Clay, PharmD 03/17/19 Dana Lala, STARTING GATE DRIVER-ANALYTICS ANALYST [address] [place] [address] 2nd [place] [address] Oncology 03/17/19 Tiffanie Nguyen, STARTING GATE DRIVER-BLIND TEACHER [address] [place] [address] 2nd [place] [address] Family Medicine 03/17/19 Stephanie Mahoney, RN Registered Nurse 03/17/19 10/29/21 Alycia Galvan, ROSEMARY 03/17/19 10/29/21 Cesar Tavares MD [address] [place] [address] Referring Physician Medical Oncology 03/23/19 Karie Jones, RN Registered Nurse 06/08/19 10/29/21 documented as of this encounter
--- OUTSIDE RECORDS SUMMARY | 2024-08-18 00:32 | XMS_ITS | Encounter Summary ---
Author Organization [facility] Address [address] [place] [address] Care Team Providers Care Geriatrics Physician Name Role Phone Hillary Apple MD Unavailable [phone] Bill Ferrera MD Unavailable [phone] Tony Dumont MD Unavailable Shalini Segal MD Unavailable [phone] Karie Jones RN Unavailable Unavailable Maryjo ReinosoW Unavailable Unavailable Madyson Clay PharmD Unavailable Unavaila Dana Galicia EARLY YEARS TEACHER-SUPERVISOR PERSONNEL CLERKS Unavailable [phone] Tiffanie Nguyen EARLY YEARS TEACHER-OPERATIONS TRAINER Unavailable [phone] Stephanie Mahoney RN Unavailable Unavailable Alycia Galvan RN Unavailable UnavailRan Mejía MD Primary Care Provider Cesar Tavares MD Unavailable [phone] Karie Jones RN Unavailable Unavailable Encounter Details Date Type Department Care Team (Late st Contact Info) Description 09/09/2019 Orders Only [facility] [address] [place] [address] Tiffanie Nguyen APRN-OPERATIONS TRAINER [address] [place] [address] Pre-transplant evaluation for stem cell transplant Social [...] st Contact Info) Description 08/26/2024 11:00 AM EMT BASIC Office Visit [facility] - Pulmonology [address] [place] [address], [place] [id number] Andrew Francis MD [address] [place] [address] 2L DIV OF PULMONARY/[place] [address] documented as of this encounter Visit Diagnoses Diagnosis Pre-transplant evaluation for stem cell transplant- Primary documented in this encounter Care Teams Geriatrics Physician Relationship Specialty Start Date End Date Ran Nuñez MD [address] [place] [phone] PCP - General Family Medicine 03/22/19 12/22/20 Hillary Apple MD [address] [place] [address] Hematology and Oncology 03/17/19 Bill Ferrera MD [address] [place] [address] Hematology and Oncology 03/17/19 08/27/21 Tony Dumont MD [address] [place] [address] Hematology and Oncology 03/17/19 Shalini Segal MD [address] [place] [address] Hematology and Oncology 03/17/19 09/29/19 Karie Jones, RN Registered Nurse 03/17/19 09/21/19 Maryjo Reinoso, MEDICINE MAN Mixer Wet Pour 03/17/19 Madyson Clay, PharmD 03/17/19 Dana Lala, EARLY YEARS TEACHER-SUPERVISOR PERSONNEL CLERKS [address] [place] [address] [address] [place] [address] Oncology 03/17/19 Tiffanie Nguyen, EARLY YEARS TEACHER-OPERATIONS TRAINER [address] [place] [address] 2nd [place] [address] Family Medicine 03/17/19 Stephanie Mahoney, RN Registered Nurse 03/17/19 10/29/21 Alycia Galvan, ROSEMARY 03/17/19 10/29/21 Cesar Tavares MD [address] [address] Referring Physician Medical Oncology 03/23/19 Karie Jones, RN Registered Nurse 06/08/19 10/29/21 documented as of this encounter
--- OUTSIDE RECORDS SUMMARY | 2024-08-18 00:32 | XMS_ITS | Encounter Summary ---
Author Organization [facility] Address [address] [place] [address] Care Team Providers Care Party Director Name Role Phone Hillary Apple MD Unavailable [phone] Bill Ferrera MD Unavailable [phone] Tony Dumont MD Unavailable [phone] Shalini Segal MD Unavailable [phone] Karie Jones RN Unavailable Unavailable Maryjo Reinoso LCSW Unavailable Unavailable Madyson Clay PharmD Unavailable Unavaila Dana Galicia DUST COLLECTOR ORE CRUSHING-CLINICAL QUALITY ASSURANCE ASSOCIATE Unavailable [phone] Tiffanie Nguyen DUST COLLECTOR ORE CRUSHING-MEDICAL LABORATORY TECHNICIAN Unavailable [phone] Stephanie Mahoney RN Unavailable Unavailable Alycia Galvan RN Unavailable UnavailRna Mejía MD Primary Care Provider Cesar Tavares MD Unavailable [phone] Karie Jones RN Unavailable Unavailable Reason for Visit * Oncology Prior Authorization (Routine) - Closed Specialty Diagnoses / Procedures Referred By Contac t Referred To Contact Diagnoses B-cell lymphoma, unspecified B-cell lymphoma type, unspecified body region (HCC) Hillary Apple MD [address] [facility] OF HEMATOLOGY & [place] [address] [facility] Bmt Clinic [address] [place] [address] Referral ID Status Reason Start Date Expiration Date Visits Re quested Visits Authorized [id number] Closed 09/16/2019 03/14/2020 1 1 Encounter Details Date Type Department Care Team (Latest Contact Info) Description 09/18/2019 7:04 AM SUPERVISOR PRESS ROOM - 09/18/2019 11:59 PM SUPERVISOR PRESS ROOM Hospital Encounter [facility] B[facility] CL[facility]IC [address] [place] [address] Bill Ferrera MD [address] [place] [address] [address] [place] [address] Discharge Disposition: Home or Self Care Social [...] Reading Time Taken Comments Blood Pressure 140/87 09/18/2019 10:42 AM SUPERVISOR PRESS ROOM Pulse 92 09/18/2019 10:42 AM SUPERVISOR PRESS ROOM Temperature 36.6 ??C (97.9 ??F) 09/18/2019 1 0:42 AM SUPERVISOR PRESS ROOM Respiratory Rate 20 09/18/2019 10:4 2 AM SUPERVISOR PRESS ROOM Oxygen Saturation 99% 09/18/2019 10: 42 AM SUPERVISOR PRESS ROOM Inhaled Oxygen Concentration - - Weight 118.6 kg (261 lb 6.4 oz) 020 10:42 AM SUPERVISOR PRESS ROOM Height - - Body Mass Index 40.34 09/17/2019 9:50 AM SUPERVISOR PRESS ROOM documented in this encounter Functional Status Functional [...] as of this encounter Progress Notes * Kofi Ramirezel Giovanna, DUST COLLECTOR ORE CRUSHING-MEDICAL LABORATORY TECHNICIAN - 09/18/2019 11:00 AM CST PATIENT IDENTIFIERS Marcello Guillen is a 49 year old male with 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 Now s/p 3rd cycle bendamustine/gazyva and s/p splenectomy 08/17/19. INTERVAL HISTORY Presents to the clinic ambulatory with significant other Aurelio is having pain at the site where his PORT was removed and some milder pain in the area of his new line He is also having pain in his back, hip, and headaches after starting Neupogen Tylenol and ibuprofen have not provided relief Did not sleep well due to the this Denies nausea, diarrhea, fever, chills, SOB, of difficulty breathing Review of Systems A comprehensive 12 point ROS was negative except as noted above. Medications Current Outpatient Medications Medication Sig ??? acetaminophen (TYLENOL) 325 MG tablet Take 2 tablets by mouth every 6 hours as needed for Feveror Pain Maximum allowable Acetaminophen amount = 4 Grams (4000 mg) / 24 hours. ??? acyclovir (ZOVIRAX) 400 MG tablet Take 1 tablet by mouth 2 times daily ??? BABY ASPIRIN PO Take 81 mg by mouth ??? diclofenac sodium EC (VOLTAREN) 75 MG tablet Take 75 mg by mouth 2 times daily ??? docusate sodium (COLACE) 100 MG capsule Take 1 capsule by mouth 2 times daily ??? enoxaparin (LOVENOX) injection Inject 40 mg subcutaneously once daily ??? escitalopram (LEXAPRO) 10 MG tablet Take 1 tablet by mouth once daily ??? ibuprofen (MOTRIN) 600 MG tablet Take [...] Took 500 mg additional per dentist instructions) ??? polyethylene glycol 3350 (MIRALAX) packet Take 17 g by mouth once daily ??? prochlorperazine (COMPAZINE) 10 MG tablet Take 10 mg by mouth every 6 hours as needed Current Facility-Administered Medications Medication ??? loratadine (CLARITIN) tablet 10 mg Allergies: NKA Vitals Vitals: 09/18/19 1042 BP: 140/87 Pulse: 92 Resp: 20 Temp: 97.9 ??F SpO2: 99% Weight: 118.6 kg (261 lb 6.4 oz) Wt Readings from Last 3 Encounters: 09/18/19 118.6 kg (261 lb 6.4 oz) 09/17/19 118.8 kg (262 lb) 09/17/19 118.4 kg (261 lb) Physical Exam General appearance - alert, uncomfortable, and in no distress Mental status - alert, oriented to person, place, and time Chest - clear to auscultation, no wheezes, rales or rhonchi, symmetric air entry, no tachypnea, retractions or cyanosis Heart - normal rate and regular rhythm, no murmurs noted Abdomen - soft, nontender, nondistended, no masses or organomegaly, well healed wound to left upperquad, bowel sounds normal Skin - site of PORT removal well approximated, without drainage or erythema, tenderness present CVC - tunneled CVC w/ dressing dry, occlusive, & intact; site without erythema, drainage, or tenderness storage. No evidence of lymphoma Assessment & Plan New Onset Pain -Multifactorial; PORT removal and Altamirano placement and recently started Neupogen for stem cell collection -unlikely infection given site of removed and newly placed lines appear normal and no evidence of fever -bone pain likely 2/2Neupogen -Oxy 5mg Q6 #28 E-scribed 09/18 -start Oxy 10mg daily -monitor symptoms with each clinic visit as he is coming daily for collection Asim Ramirez APRN, CRIB CLERK-C [facility] Blood Marrow and Transplant Pager: [phone] RVISOR PRESS ROOM documented in this encounter Plan of Treatment Upcoming Encounters Date Type Department Care Team (Late st Contact Info) Description 08/26/2024 11:00 AM SUPERVISOR PRESS ROOM Office Visit [facility] - Pulmonology [address] [facility], [place] [address] Andrew Francis MD [address] [place] [address] 2L DIV OF PULMONARY/[place] [address] documented as of this encounter Visit Diagnoses Diagnosis B-cell lymphoma, unspecified B-cell lymphoma type, unspecified body region (HCC)- Primary Pain, unspecified documented in this encounter Administered Medications Inactive Administered Medications - up to 3 most recent administrations Medication Order MAR Action Action Date Dose Rate Site filgrastim (NEUPOGEN) injection 1,200 mcg 1,200 mcg (rounded from 1,198 mcg = 10 mcg/kg ? 119.8 kg Treatment plan Recorded weight), Subcutaneous, ONCE, 1 dose, On 09/18/19 at 0715 $ Given 09/18/2019 10:44 AM SUPERVISOR PRESS ROOM 1,200 mcg Abd Left Lower Quadrant documented in this encounter Care Teams Party Director Relationship Specialty Start Date End Date Ran Nuñez MD [address] [facility] [place] [phone] PCP - General Family Medicine 03/22/19 12/22/20 Hillary Apple MD [address] [place] [address] Hematology and Oncology 03/17/19 Bill Ferrera MD [address] [place] [address] Hematology and Oncology 03/17/19 08/27/21 Tony Dumont MD [address] [place] [address] Hematology and Oncology 03/17/19 Shalini Segal MD [address] [place] [address] Hematology and Oncology 03/17/19 09/29/19 Karie Jones, RN Registered Nurse 03/17/19 09/21/19 Maryjo Reinoso LCSW Land Developer 03/17/19 Madyson Clay, PharmD 03/17/19 Dana Lala, DUST COLLECTOR ORE CRUSHING-CLINICAL QUALITY ASSURANCE ASSOCIATE [address] [place] [address] [address] [address] Oncology 03/17/19 Tiffanie Nguyen, DUST COLLECTOR ORE CRUSHING-MEDICAL LABORATORY TECHNICIAN [address] [place] [address] [address] [address] Family Medicine 03/17/19 Stephanie Mahoney, RN Registered Nurse 03/17/19 10/29/21 Alycia Galvan, ROSEMARY 03/17/19 10/29/21 Cesar Tavares MD [address] [place] [address] [place] [address] Referring Physician Medical Oncology 03/23/19 Karie Jones, RN Registered Nurse 06/08/19 10/29/21 documented as of this encounter
--- OUTSIDE RECORDS SUMMARY | 2024-08-18 00:32 | XMS_ITS | Encounter Summary ---
Author Organization [facility] Address [address] [place] [place] [address] Care Team Providers Care Substation Manager Name Role Phone Hillary Apple MD Unavailable [phone] Bill Ferrera MD Unavailable [phone] Tony Dumont MD Unavailable [phone] Shalini Segal MD Unavailable [phone] Karie Jones RN Unavailable Unavailable Maryjo Reinoso LCSW Unavailable Unavailable Madyson Clay PharmD Unavailable Unavaila Dana Galicia ALL ROUND LOGGER-IT BUSINESS SYSTEMS ANALYST Unavailable + [phone] Tiffanie Nguyen ALL ROUND LOGGER-FINANCIAL SERVICE PROFESSIONAL Unavailable [phone] Stephanie Mahoney RN Unavailable Unavailable Alycia Galvan RN Unavailable UnavailRan Mejía MD Primary Care Provider Cesar Tavares MD Unavailable [phone] Karie Jones RN Unavailable Unavailable Reason for Referral * Radiology Services (Routine) - Closed Specialty Diagnoses / Procedures Referred By Deng t Referred To Contact Interventional Radiology Diagnoses Diffuse large B-cell lymphoma, unspecified body region (HCC) Procedures IR CENTRAL LINE REMOVAL Tiffanie Nguyen APRN-FINANCIAL SERVICE PROFESSIONAL [address] [place] [address] [facility] [address] [place] [address] Referral ID Status Reason Start Date Expiration Date Visits Re quested Visits Authorized [id number] Closed 08/20/2019 01/03/2020 1 1 ERTY MANAGEMENT ACCOUNTANT Reason for Visit * Radiology Services (Routine) - Closed Specialty Diagnoses / Procedures Referred By Contac t Referred To Contact Interventional Radiology Diagnoses Diffuse large B-cell lymphoma, unspecified body region (HCC) Procedures IR CENTRAL LINE REMOVAL Tiffanie Nguyen APRN-CNP [address] [place] [address] [facility] [address] [place] [address] Referral ID Status Reason Start Date Expiration Date Visits Re quested Visits Authorized [id number] Closed 08/20/2019 01/03/2020 1 1 Encounter Details Date Type Department Care Team (Latest Contact Info) Description 09/17/2019 9:35 AM PROPERTY MANAGEMENT ACCOUNTANT Hospital Encounter [facility] [address] [place] [address] Tiffanie Nguyen APRN-CNP [address] [place] [address] Discharge Disposition: Home or Self [...] this encounter Discharge Instructions * Discharge Instructions* Tom Lamar MD - 09/17/2019 10:59 AM PROPERTY MANAGEMENT ACCOUNTANT RADIOLOGY OUTPATIENT PHYSICIAN DISCHARGE ORDER Dressing Care: leave dressing in place. Keep Dry Instructions: If you have one or more of the following, please call your physician: A. Redness or swelling of the operative site. B. Persistent bleeding through bandage. C. Severe pain which is not relieved by oral pain medication. D. Temperature above 101 degrees or severe chilling. E. Foul odor of drainage. If you are unable to reach your physician with an urgent or severe problem: 1. Call the nephrology resident at [phone] . 2. Call the emergency room at [phone]. Post Moderate Sedation instructions: During the procedure, [...] moderate sedation like big financial decisions, selling property etc. Medications: IF prescribed pain medications, do not take on an empty stomach. Do not drive, drink alcohol or operate machinery while taking medication.; we have not made any changes to your previously prescribed medications. 09/17/2019 10:56 AM Physician: Darwin Hughes ERTY MANAGEMENT ACCOUNTANT documented in this encounter Medications at Time [...] as of this encounter Progress Notes * Anabel Remy RN - 09/17/2019 11:05 AM CST Patient tolerated procedure well. VSS upon procedure completion. Patient transferred to stretcher with standby assistance via slideboard by IR staff without incident. Dressings to bilateral chest CDI. Patient to IR holding and report given to holding nurse ROSEMARY Bell. Transitioned care at this time. ERTY MANAGEMENT ACCOUNTANT * Anabel Remy RN - 09/17/2019 10:15 AM CST Patient arrives to IR procedure room 3 via stretcher. Patient transferred self to procedure table with standby assistance by IR staff without incident. Safety arm boards placed. Patient placed on monitor and VSS. Warm blankets placed with pillow under knees to facilitate comfort. Will continue to monitor. ERTY MANAGEMENT ACCOUNTANT * Pily Murdock MD - 09/17/2019 9:37 AM CST IP Sedation Pre Date/Time: 09/17/2019 9:41 AM Performed by:??DARWIN HUGHES Authorized by: DARWIN HUGHES Unit: IR Consent: Verbal consent obtained. Written consent obtained. History & Exam Attestation:??I have reviewed the pre-procedure nursing assessment: Yes Brief history and exam related to procedure complete: Yes H&P was reviewed, the patient was examined, and that ? no changes? have occurred in the patient? s condition since the H&P was complete: Yes History of previous anesthetic problems/complications including family history: No History of airway problems: No Tracheal deviation: No Short thick neck/non-visible neck: No Neck with limited range of motion: No Visible anterior neck mass: No Small mouth opening/ and/or sub/mental space (less than 3 finger breadths): No Protruding upper teeth: No Oxygen saturation less than 91% on room air: No Pre-Procedure ASA Classification: ASA 2 Mallampati Classification: Class II Procedure Plan: Moderate Sedation Based on the pre-procedure assessment, History and Physical, and allergy history, this patient is asuitable candidate for sedation during the planned procedure. ??I have discussed the plan, risk, benefits and alternatives with patient, family ??members or patient access services representative: Yes Attestation: I have reviewed the immediate pre-procedure vital signs: Yes Patient reports or my clinical evaluation indicates there have been no changes in the patient's condition prior to the start of the procedure: Yes Intra-Procedure ?? Patient is currently here for port removal and Altamirano placement ERTY MANAGEMENT ACCOUNTANT * Pily Murdock MD - 09/17/2019 9:35 AM CST INTERVENTIONAL NEPHROLOGY HISTORY AND PHYSICAL Patient Name: Marcello Guillen HISTORY OF PRESENT ILLNESS: 49 year old M with PMHx of Hodgkin???s lymphoma presented for Altamirano placement for stem cell collection REVIEW OF SYSTEMS: Negative for f/c Negative for c/p PAST MEDICAL HISTORY: Past Medical History: Diagnosis Date ??? Diverticulosis ??? GERD (gastroesophageal reflux disease) taking prevacid prn ??? H/O echocardiogram 08/11/2019 ??? Lymphoma of lymph nodes ??? Multiple body piercings facial ??? Port-A-Cath in place right subclavian ??? Sleep apnea not using CPAP ??? Transient alteration of awareness 2018 during knee arthroplasty(single incident) PAST SURGICAL HISTORY: as above in PMH plus: Past Surgical History: Procedure Laterality Date ??? ACL RECONSTRUCTION ??? BONE MARROW BIOPSY ??? COLONOSCOPY WITH POLYPECTOMY ??? Knee Arthroscopy Right 2018 with hardware ??? Splenectomy N/A 08/17/2019 N/A; LAPAROSCOPIC SPLENECTOMY POSS OPEN ??? Tonsillectomy ??? VENOUS ACCESS DEVICE (PORT OR CATHETER) Right 2019 subclavian SOCIAL HISTORY: Social History Socioeconomic History ??? Marital status: Single Spouse name: Not on file ??? Number of children: Not on file ??? Years of education: Not on file ??? Highest education level: Not on file Occupational History ??? Not on file Tobacco Use ??? Smoking status: Former Smoker Packs/day: 0.50 Types: Cigarettes Start date: 1983 Last attempt to quit: 2002 Years since quittin.1 ??? Smokeless tobacco: Former User Types: Chew Quit date: 2016 Substance and Sexual Activity ??? Alcohol use: Not Currently ??? Drug use: Yes Frequency: 21.0 times per week Types: Marijuana ??? Sexual activity: Not on file Other Topics Concern ??? Not on file Social History Narrative ??? Not on file FAMILY HISTORY: Family History Family history unknown: Yes ALLERGIES: Allergies Allergen Reactions ??? Adhesive Sensitivity Urticaria and Other Electrodes -- welps where stickers are Also, use paper tape MEDS: Reviewed VITALS: There were no vitals filed for this visit. Estimated body mass index is 40.74 kg/m?? as calculated from the following: Height as of 08/26/19: 1.715 m (5' 7.5 ). Weight as of 09/14/19: 119.8 kg (264 lb 0.7 oz). PHYSICAL EXAM: Gen in nad s1s2 rrr No edema LAB: Recent Labs Component Name 09/09/19 1242 08/26/19 1345 08/19/19 0542 08/18/19 0555 08/11/19 1116 HGB 12.7* 12.2* 12.1* 11.7* 11.6* WBC 5.7 6.8 8.8 10.6* 2.3* HCT 37.8* 36.1* 34.7* 33.3* 33.6* MCV 88.9 87.4 87.4 86.3 86.6 PT 12.9 - - - - INR 1.0 - - - - ) Recent Labs Component Name 09/09/19 1242 08/26/19 1345 08/19/19 0542 08/18/19 0555 07/26/19 1248 BUN 12 11 10 9 12 CREATININE 0.9 0.9 1.0 0.9 1.0 NA 142 141 143 141 140 CL 108* 107 108* 107 108* CO2 23 23 26 22 23 CALCIUM 9.3 9.8 9.2 8.8 9.1 GLU 90 83 89 100 97 PHOS 3.6 3.2 2.0* 3.1 3.2 Recent Labs Component Name 09/09/19 1242 08/26/19 1345 08/19/19 0542 08/18/19 0555 07/26/19 1248 ALB 3.8 3.4 3.6 3.5 4.0 TBILI 0.2 0.2 0.4 0.4 0.4 ALT 36 48 35 40 68* AST 20 31 29 31 31 No results for input(s): PHART, PBT1VBT, PO2ART, EAF6ZRE in the last 28610 hours. ASSESSMENT: A 49 Y.O M pwith PMHx of Hodgkin???s lymphoma presented for Altamirano placement PLAN: Port removal and Altamirano placement Pily Murdock MD ERTY MANAGEMENT ACCOUNTANT * Karie Jones RN - 09/14/2019 2:29 PM CST The patient was provided consents for the below study in advance of signing them today. The patient meets all eligibility criteria for enrollment into the [facility] [address] studies. The details of the research protocol [...] prior to any study-related procedures being performed. ERTY MANAGEMENT ACCOUNTANT documented in this encounter Procedure Notes * Tom Lamar MD - 09/17/2019 10:57 AM CSTAssociated Order(s): IR CENTRAL LINE REMOVAL IR Brief Post-Procedure Note Patient: Marcello Guillen Attending: Darwin Hughes MD Nurse Epidemiologist: Tom Lamar MD Chain Carrier: Lizandro Murdock MD Diagnosis: Hodgkin lymphoma Description of procedure: Successful removal of R IJ port; successful placement of Altamirano cathetervia L IJ vein Anesthesia: Conscious sedation with local anesthesia Medication used: See detailed procedure note Complications: none Estimated Blood Loss: Minimal Specimens: None See detailed procedure note with images in PACS (Synapse). The patient tolerated the procedure well without incident or complication and was returned to Holding in stable condition. 09/17/2019 10:57 AM ERTY MANAGEMENT ACCOUNTANT * Tom Lamar MD - 09/17/2019 10:56 AM CST IP Sedation Post Date/Time: 09/17/2019 10:57 AM Performed by: DARWIN HUGHES Authorized by: DARWIN HUGHES Unit: IR Post-Procedure Attestation: I have reviewed the post-procedure vital signs: Patient is 2 - able to move four extremities voluntarily on command. Patient 2 - is able to breathe and cough freely. Patient's 2 - Blood pressure within 20% of pre-anesthesia level Patient is 2 - Fully Awake Patient's 2 - color is WNL. Alexia score is 10 Patient's temperature is Normalthermic Patient's pain level is: None 09/17/2019 10:57 AM Tom Lamar MD ERTY MANAGEMENT ACCOUNTANT documented in this encounter Plan of Treatment Upcoming Encounters Date Type Department Care Team (Late st Contact Info) Description 08/26/2024 11:00 AM PROPERTY MANAGEMENT ACCOUNTANT Office Visit [facility] - Pulmonology [address] [place] [address], [place] [id number] Andrew Francis MD [address] [place] [address] [address] DIV OF PULMONARY/[place] [address] documented as of this encounter Procedures Procedure Name Priority Date/Time Associated Diagnosis Comments IR CENTRAL LINE REMOVAL Routine 09/17/2019 10:52 AM PROPERTY MANAGEMENT ACCOUNTANT Diffuse large B-cell lymphoma, unspecified body region (HCC) documented in this encounter Results * IR CENTRAL LINE REMOVAL (09/17/2019 10:52 AM PROPERTY MANAGEMENT ACCOUNTANT) Anatomical Region Laterality Modality X-Ray Angiograph y 09/17/2019 4:03 PM PROPERTY MANAGEMENT ACCOUNTANT Narrative 09/17/2019 4:09 PM PROPERTY MANAGEMENT ACCOUNTANT This is an Interventional Nephrology procedure performed on September 17, 2019 Nurse Epidemiologist: Tom Lamar Chain Carrier : Lizandro Murdock and Darwin Hughes Attending: Darwin Hughes Note 2 separate [...] evaluation, please review the evaluation forms in [facility]. For details on monitored clinical parameters during the intra-service sedation time, please review the procedure nurse documentation in [facility]. Under real time ultrasound guidance, the left internal jugular vein was accessed with a micropuncture needle, a coates scale image was recorded and a microfilament wire was advanced to the central veins under fluoroscopic guidance. ??This allowed the placement of a 5 [place] trocar which in turn allowed the placement [...] M.D. ??on 09/17/2019 4:09 PM . Tiffanie Nguyen ALL ROUND LOGGER-FINANCIAL SERVICE PROFESSIONAL IR ORDERABLES documented in this encounter Visit Diagnoses Diagnosis Diffuse large B-cell lymphoma, unspecified body region (HCC) documented in this encounter Administered Medications Inactive Administered Medications - up to 3 most recent administrations Medication Order MAR Action Action Date Dose Rate Site fentaNYL (PF) (SUBLIMAZE) injection Intravenous, ONCE PRN, Starting on Fri09/17/19 at 1021, Until Fri09/17/19 at 1028 $ Given 09/17/2019 10:28 AM PROPERTY MANAGEMENT ACCOUNTANT 50 mcg $ Given 09/17/2019 10:21 AM PROPERTY MANAGEMENT ACCOUNTANT 50 mcg $ Given 09/17/2019 10:21 AM PROPERTY MANAGEMENT ACCOUNTANT 50 mcg heparin lock flush injection Intravenous, ONCE PRN, Starting on Fri09/17/19 at 1040, Until Fri09/17/19 at 1040 $ Given 09/17/2019 10:40 AM PROPERTY MANAGEMENT ACCOUNTANT 500 Units heparinized saline 2 units/ml infusion CONTINUOUS PRN, Starting on Fri09/17/19 at 1012, Until Fri09/17/19 at 1012 $ New Bag/Syringe 09/17/2019 10:12 AM PROPERTY MANAGEMENT ACCOUNTANT 500 mL lidocaine 1% - EPINEPHrine 1:100,000 injection ONCE PRN, Starting on Fri09/17/19 at 1013, Until Fri09/17/19 at 1013 $ Given 09/17/2019 10:13 AM PROPERTY MANAGEMENT ACCOUNTANT 10 mL midazolam (VERSED) injection Intravenous, ONCE PRN, Starting on Fri09/17/19 at 1022, Until Fri09/17/19 at 1028 $ Given 09/17/2019 10:28 AM PROPERTY MANAGEMENT ACCOUNTANT 1 mg $ Given 09/17/2019 10:22 AM PROPERTY MANAGEMENT ACCOUNTANT 1 mg $ Given 09/17/2019 10:21 AM PROPERTY MANAGEMENT ACCOUNTANT 1 mg documented in this encounter Care Teams Substation Manager Relationship Specialty Start Date End Date Ran Nuñez MD [address] [place] [phone] PCP - General Family Medicine 03/22/19 12/22/20 Hillary Apple MD [address] [place] [id number] Hematology and Oncology 03/17/19 Bill Ferrera MD [address] [place] [address] Hematology and Oncology 03/17/19 08/27/21 Tony Dumont MD [address] [place] [id number] Hematology and Oncology 03/17/19 Shalini Segal MD [address] [place] [phone] Hematology and Oncology 03/17/19 09/29/19 Karie Jones, RN Registered Nurse 03/17/19 09/21/19 Maryjo Reinoso, SEWER TAPPER Rubber Press Tender 03/17/19 Madyson Clay, PharmD 03/17/19 Dana Lala, ALL ROUND LOGGER-IT BUSINESS SYSTEMS ANALYST [address] [place] [address] [address] [address] Oncology 03/17/19 Tiffanie Nguyen, ALL ROUND LOGGER-FINANCIAL SERVICE PROFESSIONAL [address] [place] [address] [address] [address] Family Medicine 03/17/19 Stephanie Mahoney, RN Registered Nurse 03/17/19 10/29/21 Alycia Galvan, RN 03/17/19 10/29/21 Cesar Tavares MD [address] [place] [phone] Referring Physician Medical Oncology 03/23/19 Karie Jones, RN Registered Nurse 06/08/19 10/29/21 documented as of this encounter
--- OUTSIDE RECORDS SUMMARY | 2024-08-18 00:32 | XMS_ITS | Encounter Summary ---
Author Organization [facility] Address [address] [place] [address] Care Team Providers Care Travel Manager Name Role Phone Hillary Apple MD Unavailable [phone] Bill Ferrera MD Unavailable [phone] Tony Dumont MD Unavailable [phone] Shalini Segal MD Unavailable [phone] Karie Jones RN Unavailable Unavailable Maryjo Reinoso LCSW Unavailable Unavailable Madyson Clay PharmD Unavailable Unavaila Dana Galicia MATH INTERVENTIONIST-INFRASTRUCTURE MANAGER Unavailable [phone] Tiffanie Nguyen MATH INTERVENTIONIST-GEOGRAPHIC INFORMATION SYSTEM ANALYST Unavailable [phone] Stephanie Mahoney RN Unavailable Unavailable Alycia Galvan RN Unavailable UnavailRan Mejía MD Primary Care Provider eCsar Tavares MD Unavailable [phone] Karie Jones RN Unavailable Unavailable Reason for Visit * Oncology Prior Authorization (Routine) - Closed Specialty Diagnoses / Procedures Referred By Contac t Referred To Contact Diagnoses B-cell lymphoma, unspecified B-cell lymphoma type, unspecified body region (HCC) Hillary Apple MD [address] [facility] & [place] [address] [facility] [address] [place] [address] Referral ID Status Reason Start Date Expiration Date Visits Re quested Visits Authorized [id number] Closed 09/16/2019 03/14/2020 1 1 Encounter Details Date Type Department Care Team (Latest Contact Info) Description 09/20/2019 7:44 AM [facility] - 09/20/2019 4:01 PM [facility] Hospital Encounter [facility] [address] [place] [address] Tiffanie Nguyen, MATH INTERVENTIONIST-GEOGRAPHIC INFORMATION SYSTEM ANALYST [address] [place] [address] Discharge Disposition: Home or Self Care Social [...] Sign Reading Time Taken Comments Blood Pressure 121/80 09/20/2019 8:07 AM [facility] Pulse 85 09/20/2019 8:07 AM [facility] Temperature 36.7 ??C (98.1 ??F) 09/20/2019 8:07 AM CS T Respiratory Rate 16 09/20/2019 8:07 AM [facility] Oxygen Saturation 99% 09/20/2019 8:07 AM [facility] Inhaled Oxygen Concentration - - Weight 117.2 kg (258 lb 6.4 oz) 09/20/2019 8:07 AM [facility] Height - - Body Mass Index 39.87 09/17/2019 9:50 AM [facility] documented in this encounter Functional Status Functional [...] st Contact Info) Description 08/26/2024 11:00 AM [facility] Office Visit [facility] - Pulmonology [address] [facility], [place] [address] Andrew Francis MD [facility] [facility] 2L DIV OF PULMONARY/[place] [address] documented as of this encounter Procedures Procedure Name Priority Date/Time Associated Diagnosis Comments CALCIUM IONIZED WHOLE BLOOD Routine 09/20/2019 8:14 AM [facility] B-cell lymphoma, unspecified B-cell lymphoma type, unspecified body region (HCC) DIFFERENTIAL MANUAL STAT 09/20/2019 8 :14 AM [facility] B-cell lymphoma, unspecified B-cell lymphoma type, unspecified body region (HCC) CBC W AUTO DIFFERENTIAL STAT 09/20/2019 8:14 AM [facility] B-cell lymphoma, unspecified B-cell lymphoma type, unspecified body region (HCC) POTASSIUM BLOOD STAT 09/20/2019 8:14 AM [facility] B-cell lymphoma, unspecified B-cell lymphoma type, unspecified body region (HCC) MAGNESIUM BLOOD STAT 09/20/2019 8:14 AM [facility] B-cell lymphoma, unspecified B-cell lymphoma type, unspecified body region (HCC) FLOW CYTOMETRY CD34 COUNT BLOOD Routine 09/20/2019 8:13 AM [facility] B-cell lymphoma, unspecified B-cell lymphoma type, unspecified body region (HCC) documented in this encounter Results * (ABNORMAL) DIFFERENTIAL MANUAL (09/20/2019 8:14 AM [facility]) WBC (corrected for NRBC) 66.3 10? 3 /uL 09/20/2019 9:10 AM [facility] Total Cell Count 100 09/20/19 20 9:10 AM [facility] Neutrophils Absolute Manual 50.39(H) 1.60 - 7.00 10? 3 /uL 09/20/2019 9:10 AM [facility] Comment:(BANDS+SEGS) x WBC = NEUT # (ANC) Lymphocyte Absolute Manual 4.64(H) 0.80 - 2.90 10? 3 /uL 09/20/2019 9:10 AM [facility] Monocytes Absolute Manual 5.30(H) 0.14 - 0.66 10? 3 /uL 09/20/2019 9:10 AM [facility] Eosinophils Absolute Manual 1.99(H) 0.00 - 0.22 10? 3 /uL 09/20/2019 9:10 AM [facility] Band % Manual 3 0 - 10 % 09/20/2019 9:10 AM [facility] Neutrophil % Manual 73(H) 30 - 60 % 09/20/2019 9:10 AM [facility] Lymphocyte % Manual 7(L) 20 - 45 % 09/20/2019 9:10 AM [facility] Monocytes % Manual 8 2 - 10 % 09/20/2019 9:10 AM [facility] Eosinophils % Manual 3 1 - 6 % 09/20/2019 9:10 AM [facility] Atypical Lymphocyte % Manual 2(H) 0 % 09/20/2019 9:10 AM [facility] Myelocytes % Manual 3(H) 0 % 09/20/2019 9:10 AM [facility] Promyelocyte % Manual 1(H) 0 % 09/20/2019 9:10 AM [facility] Platelet Estimate Adequate Adequate 020 9:10 AM [facility] Anisocytosis 1+(A) None 09/20/2019 9:10 AM [facility] Macrocytosis 1+(A) None 09/20/2019 9:10 AM [facility] Hypochromia 1+(A) None 09/20/2019 9:10 AM [facility] Polychromasia 1+(A) None 09/20/2019 9:10 AM [facility] Blank-Jovista Bodies Rare(A) None 09/20/2019 9:10 AM [facility] Tear Drop Cells 1+(A) None 0 9:10 AM [facility] Blood BLOOD SPECIMEN / Unknown Venipuncture / Unknown 09/20/2019 8:14 AM [facility] 09/20/2019 8:24 AM [facility] Tiffanie Nguyen MATH INTERVENTIONIST-GEOGRAPHIC INFORMATION SYSTEM ANALYST LAB - HEMATOLOG Y ORDERABLES Performing Organization Address City/State/[facility] Co de Phone Number [facility] [address] [place] [address] * (ABNORMAL) CBC W AUTO DIFFERENTIAL (09/20/2019 8:14 AM [facility]) WBC 66.3(HH) 3.5 - 10.5 10? 3 /uL 09/20/2019 8:44 AM [facility] Comment: All CBC parameters have been checked. Not called to [facility] CLINIC. RBC 4.31 4.30 - 5.70 10? 6 /uL 09/20/2019 8:44 AM [facility] Hemoglobin 12.8(L) 13.5 - 17.5 g/dL 09/20/2019 8:44 AM [facility] Hematocrit 38.8(L) 39.0 - 50.0 % 09/20/2019 8:44 AM [facility] MCV 90.0 81.0 - 97.0 fL 09/20/2019 8:44 AM [facility] MCH 29.7 28.0 - 34.0 pg 09/20/2019 8:44 AM [facility] MCHC 33.0 32.0 - 36.0 g/dL 09/20/2019 8:44 AM [facility] Platelet Count 311 150 - 400 10? 3 /uL 09/20/2019 8:44 AM [facility] RDW-SD 48.2 36.0 - 50.0 fL 09/20/2019 8:44 AM [facility] RDW-CV 14.6 11.2 - 14.8 % 09/20/2019 8:44 AM [facility] MPV 11.2 9.3 - 12.8 fL 09/20/2019 8:44 AM [facility] nRBC Absolute 0.05(H) 0 10? 3 /uL 09/20/2019 8:44 AM [facility] nRBC Auto 0.1(H) 0 /100 WBC 09/20/2019 8:44 AM [facility] Blood BLOOD SPECIMEN / Unknown Venipuncture / Unknown 09/20/2019 8:14 AM [facility] 09/20/2019 8:24 AM [facility] Lara Buss [facility] LAB - HEMATOLOG Y ORDERABLES [address] [phone] * POTASSIUM BLOOD (09/20/2019 8:14 AM [facility]) Potassium 4.2 3.5 - 4.5 mmol/L 09/20/2019 8:52 AM [facility] Blood BLOOD SPECIMEN / Unknown Venipuncture / Unknown 09/20/2019 8:14 AM [facility] 09/20/2019 8:24 AM [facility]ara [facility] - CHEMISTRY ORDERABLES Performing Organization Address [facility] Co de Phone Number [address] [phone] * MAGNESIUM BLOOD (09/20/2019 8:14 AM [facility]) Magnesium 1.8 1.6 - 2.6 mg/dL 09/20/2019 8:52 AM [facility] Blood BLOOD SPECIMEN / Unknown Venipuncture / Unknown 09/20/2019 8:14 AM [facility] 09/20/2019 8:24 AM [facility] Lara Patrick [facility] LAB - CHEMISTRY ORDERABLES Performing Organization Address [facility]/ZIP Co de Phone Number [address] [phone] * CALCIUM IONIZED WHOLE BLOOD (09/20/2019 8:14 AM [facility]) Ionized Calcium Whole Blood 1.23 mmol/L 09/20/2019 8:32 AM [facility] Adjusted Ionized Calcium 1.20 1.19 - 1.34 mmol/L 09/20/2019 8:32 AM [facility] pH Whole Blood 7.35 7.35 - 7.45 09/20/2019 8:32 AM [facility] Blood WHOLE BLOOD SPECIMEN / Unknown Venipuncture / Unknown 09/20/2019 8:14 AM [facility] 09/20/2019 8:24 AM [facility] Tiffanie Nguyen MATH INTERVENTIONIST-GEOGRAPHIC INFORMATION SYSTEM ANALYST LAB - CHEMISTRY ORDERABLES [facility] [address] [place] [address] * FLOW CYTOMETRY CD34 COUNT BLOOD (09/20/2019 8:13 AM [facility]) Reason for test B-cell lymphoma, unspecified B-cell lymphoma type, unspecified body region 09/20/2019 12:26 PM [facility] Client Specimen ID # [id number] 09/20/2019 12:26 PM [facility] Number of Markers 2 09/20/2019 12:26 PM [facility] Flow Cytometry Results Differential Result % Comment Total Viability 98.8 Lymph/[place] Surface Marker Results % Absolute Count (cell/uL) CD34 0.02 13.101 CD45 95.37 62,471.546 09/20/2019 12:26 PM [facility] Flow Cytometry Interpretation Testing is technical only and does not require an interpretation of results. 09/20/2019 12:26 PM [facility] Disclaimer Test performed at [facility], [address] [place] [address], [id number]. This test was developed and its performance [...] qualified to perform high complexity clinical testing. 09/20/2019 12:26 PM [facility] Embedded Images 0 12:26 PM [facility] Blood BLOOD SPECIMEN / Unknown Venipuncture / Unknown 09/20/2019 8:13 AM [facility] 09/20/2019 9:25 AM [facility] Tiffanie Nguyen MATH INTERVENTIONIST-GEOGRAPHIC INFORMATION SYSTEM ANALYST LAB - PATHOLOGY /CYTOLOGY ORDERABLES Performing Organization Address City/State/[facility] Co de Phone Number [facility] [address] [place], [place] [id number] [place] [address] documented in this encounter Visit Diagnoses Diagnosis B-cell lymphoma, unspecified B-cell lymphoma type, unspecified body region (HCC)- Primary Diffuse large [...] Recorded weight), Subcutaneous, ONCE, 1 dose, On 09/20/19 at 0815 $ Given 09/20/2019 8:31 AM [facility] 1,200 mcg Abd Right Lower Quadrant documented in this encounter Care Teams Travel Manager Relationship Specialty Start Date End Date Ran Nuñez MD [address] [facility] [place] [address] PCP - General Family Medicine 03/22/19 12/22/20 Hillary Apple MD [address] [place] [address] Hematology and Oncology 03/17/19 Bill Ferrera MD [address] [place] [address] Hematology and Oncology 03/17/19 08/27/21 Tony Dumont MD [address] [place] [address] Hematology and Oncology 03/17/19 Shalini Segal MD [address] [place] [address] Hematology and Oncology 03/17/19 09/29/19 Karie Jones, RN Registered Nurse 03/17/19 09/21/19 Maryjo Reinoso, VARITYPE OPERATOR Retail Merchandiser 03/17/19 Madyson Clay, PharmD 03/17/19 Dana Lala, MATH INTERVENTIONIST-INFRASTRUCTURE MANAGER [address] [facility] [place] [address] Oncology 03/17/19 Tiffanie Nguyen, MATH INTERVENTIONIST-GEOGRAPHIC INFORMATION SYSTEM ANALYST [facility] [address] [place] [address] Family Medicine 03/17/19 Stephanie Mahoney, RN Registered Nurse 03/17/19 10/29/21 Alycia Galvan, ROSEMARY 03/17/19 10/29/21 Cesar Tavares MD [address] [place] [address] Referring Physician Medical Oncology 03/23/19 Karie Jones, RN Registered Nurse 06/08/19 10/29/21 documented as of this encounter
--- OUTSIDE RECORDS SUMMARY | 2024-08-18 00:32 | XMS_ITS | Encounter Summary ---
Author Organization [facility] Address [address] [facility] [place] [address] Care Team Providers Care Sludge Filtration Operator Name Role Phone Hillary Apple MD Unavailable [phone] Bill Ferrera MD Unavailable [phone] Tony Dumont MD Unavailable [phone] Shalini Segal MD Unavailable [phone] Karie Jones RN Unavailable Unavailable Maryjo Reinoso LCSW Unavailable Unavailable Madyson Clay PharmD Unavailable Unavaila Dana Galicia RN SUPPLEMENTAL-MACHINIST FIRST CLASS Unavailable [phone] Tiffanie Nguyen RN SUPPLEMENTAL-THERAPIST PHYSICAL Unavailable [phone] Stephanie Mahoney RN Unavailable Unavailable Alycia Galvan RN Unavailable UnavailRan Mejía MD Primary Care Provider Cesar Tavares MD Unavailable [phone] Karie Jones RN Unavailable Unavailable Reason for Visit * Oncology Prior Authorization (Routine) - Closed Specialty Diagnoses / Procedures Referred By Contac t Referred To Contact Diagnoses B-cell lymphoma, unspecified B-cell lymphoma type, unspecified body region (HCC) Hillary Apple MD [address] [facility] [place] [address] [facility] [address] [place] [address] Referral ID Status Reason Start Date Expiration Date Visits Re quested Visits Authorized [id number] Closed 09/16/2019 03/14/2020 1 1 Encounter Details Date Type Department Care Team (Latest Contact Info) Description 09/17/2019 11:30 AM ADMINISTRATIVE SUPPORT TECHNICIAN - 09/17/2019 11:59 PM ADMINISTRATIVE SUPPORT TECHNICIAN Hospital Encounter [facility] [address] [place], [place] [id number] Tiffanie Nguyen, RN SUPPLEMENTAL-THERAPIST PHYSICAL [address] [place] [address] Discharge Disposition: Home or Self Care Social [...] Sign Reading Time Taken Comments Blood Pressure 126/70 09/17/2019 12:12 PM ADMINISTRATIVE SUPPORT TECHNICIAN Pulse 84 09/17/2019 12:12 PM ADMINISTRATIVE SUPPORT TECHNICIAN Temperature 36.9 ??C (98.5 ??F) 09/17/2019 12:[address] Respiratory Rate 16 09/17/2019 12:12 PM ADMINISTRATIVE SUPPORT TECHNICIAN Oxygen Saturation 99% 09/17/2019 12:12 PM ADMINISTRATIVE SUPPORT TECHNICIAN Inhaled Oxygen Concentration - - Weight 118.8 kg (262 lb) 09/17/2019 11:47 AM ADMINISTRATIVE SUPPORT TECHNICIAN Height - - Body Mass Index 40.43 09/17/2019 9:50 AM ADMINISTRATIVE SUPPORT TECHNICIAN documented in this encounter Functional Status Functional [...] st Contact Info) Description 08/26/2024 11:00 AM ADMINISTRATIVE SUPPORT TECHNICIAN Office Visit [facility]ician [facility] - Pulmonology [address] [facility] [place] [address] Andrew Francis MD [address] [place] [address] 2L DIV OF PULMONARY/[place] [address] documented as of this encounter Procedures Procedure Name Priority Date/Time Associated Diagnosis Comments CYTOMEGALOVIRUS (CMV) QUANTITATIVE PLASMA Routine 09/17/2019 11:49 AM ADMINISTRATIVE SUPPORT TECHNICIAN Diffuse large B-cell lymphoma, unspecified body region (HCC) CBC W AUTO DIFFERENTIAL STAT 09/17/19 11:49 AM ADMINISTRATIVE SUPPORT TECHNICIAN Diffuse large B-cell lymphoma, unspecified body region (HCC) documented in this encounter Results * (ABNORMAL) CBC W AUTO DIFFERENTIAL (09/17/2019 11:49 AM ADMINISTRATIVE SUPPORT TECHNICIAN) WBC 12.5(H) 3.5 - 10.5 10? 3 /uL 09/17/2019 11:56 AM [facility] RBC 4.22(L) 4.30 - 5.70 10? 6 /uL 09/17/2019 11:56 AM [facility] Hemoglobin 12.5(L) 13.5 - 17.5 g/dL 09/17/2019 11:56 AM [facility] Hematocrit 38.1(L) 39.0 - 50.0 % 09/17/2019 11:56 AM [facility] MCV 90.3 81.0 - 97.0 fL 09/17/2019 11:56 AM [facility] MCH 29.6 28.0 - 34.0 pg 09/17/2019 11:56 AM [facility] MCHC 32.8 32.0 - 36.0 g/dL 09/17/2019 11:56 AM [facility] Platelet Count 328 150 - 400 10? 3 /uL 09/17/2019 11:56 AM [facility] RDW-SD 49.0 36.0 - 50.0 fL 09/17/2019 11:56 AM [facility] RDW-CV 14.6 11.2 - 14.8 % 09/17/2019 11:56 AM [facility] MPV 10.7 9.3 - 12.8 fL 09/17/2019 11:56 AM [facility] nRBC Absolute 0.00 0 10? 3 /uL 09/17/2019 11:56 AM [facility] nRBC Auto 0.0 0 /100 WBC 09/17/2019 11:56 AM [facility] Neutrophils % 68.1 35.0 - 70.0 % 09/17/2019 11:56 AM [facility] Lymphocytes % 17.0(L) 19.7 - 55.1 % 09/17/2019 11:56 AM [facility] Monocytes % 7.6 3.0 - 15.0 % 09/17/2019 11:56 AM [facility] Eosinophils % 5.5 0.0 - 6.0 % 09/17/2019 11:56 AM [facility] Basophil % 1.5 0.0 - 1.5 % 09/17/2019 11:56 AM [facility] Neutrophils Absolute 8.5(H) 1.6 - 7.0 10? 3 /uL 09/17/2019 11:56 AM [facility] Lymphocyte Absolute 2.1 0.8 - 2.9 10? 3 /uL 09/17/2019 11:56 AM [facility] Monocytes Absolute 0.95(H) 0.14 - 0.66 10? 3 /uL 09/17/2019 11:56 AM [facility] Eosinophils Absolute 0.69(H) 0.00 - 0.45 10? 3 /uL 09/17/2019 11:56 AM [facility] Basophils Absolute 0.19(H) 0.00 - 0.06 10? 3 /uL 09/17/2019 11:56 AM [facility] Immature Granulocytes % 0.3 0.0 - 1.0 % 09/17/2019 11:56 AM [facility] Blood BLOOD SPECIMEN / Unknown Venipuncture / Unknown 09/17/2019 11:49 AM ADMINISTRATIVE SUPPORT TECHNICIAN 09/17/2019 11:53 AM ADMINISTRATIVE SUPPORT TECHNICIAN Tiffanie Nguyen RN SUPPLEMENTAL-THERAPIST PHYSICAL LAB - HEMATOLOG Y ORDERABLES [facility] [address] [phone] * (ABNORMAL) CYTOMEGALOVIRUS (CMV) QUANTITATIVE PLASMA (09/17/2019 11:49 AM ADMINISTRATIVE SUPPORT TECHNICIAN) CMV Quant By PCR, Blood 63(H) Not Detected IU/mL 09/20/2019 12:40 PM [facility] CMV Quant by PCR, Interp Detected( A) Not Detected 09/20/2019 12:40 PM [facility] Blood BLOOD SPECIMEN / Unknown Venipuncture / Unknown 09/17/2019 11:49 AM ADMINISTRATIVE SUPPORT TECHNICIAN 09/17/2019 11:53 AM ADMINISTRATIVE SUPPORT TECHNICIAN Narrative [facility] - 09/20/2019 12:40 PM ADMINISTRATIVE SUPPORT TECHNICIAN The CMV DNA analysis utilized real-time PCR, [...] FDA approved test methodology (Bartholomew RealTime CMV). The CMV DNA analysis utilized [...] using an [place] FDA approved test methodology (sunne.ws RealTime CMV). Tiffanie Nguyen RN SUPPLEMENTAL-THERAPIST PHYSICAL LAB - CHEMISTRY ORDERABLES [facility] [address] [facility] [place] [address], [facility] [phone] documented in this encounter Visit Diagnoses Diagnosis Diffuse large B-cell lymphoma, unspecified body region (HCC)- Primary B-cell lymphoma, unspecified B-cell lymphoma type, unspecified body region (HCC) documented in this encounter Administered Medications Inactive Administered Medications - up to 3 most recent administrations Medication Order MAR Action Action Date Dose Rate Site filgrastim (NEUPOGEN) injection 1,200 mcg 1,200 mcg (rounded from 1,198 mcg = 10 mcg/kg ? 119.8 kg Treatment plan Recorded weight), Subcutaneous, ONCE, 1 dose, On Fri09/17/19 at 1130 $ Given 09/17/2019 12:01 PM ADMINISTRATIVE SUPPORT TECHNICIAN 1,200 mcg Abdominal Tissue documented in this encounter Care Teams Sludge Filtration Operator Relationship Specialty Start Date End Date Ran Nuñez MD [address] [place] [address] PCP - General Family Medicine 03/22/19 12/22/20 Hillary Apple MD [address] [place] [address] Hematology and Oncology 03/17/19 Bill Ferrera MD [address] [place] [address] Hematology and Oncology 03/17/19 08/27/21 Tony Dumont MD [address] [place] [address] Hematology and Oncology 03/17/19 Shalini Segal MD [address] [place] [address] Hematology and Oncology 03/17/19 09/29/19 Karie Jones, RN Registered Nurse 03/17/19 09/21/19 Maryjo Reinoso, REAL ESTATE SALES MANAGER Ems Manager 03/17/19 Madyson Clay, PharmD 03/17/19 Dana Lala, RN SUPPLEMENTAL-MACHINIST FIRST CLASS [address] [place] [address] [address]nd [place] [address] Oncology 03/17/19 Tiffanie Nguyen, RN SUPPLEMENTAL-THERAPIST PHYSICAL [address] [place] [address] [address]nd [place] [address] Family Medicine 03/17/19 Stephanie Mahoney, RN Registered Nurse 03/17/19 10/29/21 Alycia Galvan, ROSEMARY 03/17/19 10/29/21 Cesar Tavares MD [address] [place] [address] Referring Physician Medical Oncology 03/23/19 Karie Jones, RN Registered Nurse 06/08/19 10/29/21 documented as of this encounter
--- OUTSIDE RECORDS SUMMARY | 2024-08-18 00:32 | XMS_ITS | Encounter Summary ---
Author Organization [facility] Address [address] [facility] [place] [address] Care Team Providers Care Commercial Real Estate Agent Name Role Phone Hillary Apple MD Unavailable [phone] Bill Ferrera MD Unavailable [phone] Tony Dumont MD Unavailable [phone] Shalini Segal MD Unavailable [phone] Karie Jones RN Unavailable Unavailable Maryjo Reinoso LCSW Unavailable Unavailable Madyson Clay PharmD Unavailable Unavaila Dana Galicia PROGRAM DEVELOPMENT SPECIALIST-BAND SPLITTER Unavailable [phone] Tiffanie Nugyen PROGRAM DEVELOPMENT SPECIALIST-TICKET AGENT Unavailable [phone] Stephanie Mahoney RN Unavailable Unavailable Alycia Galvan RN Unavailable UnavailRan Mejía MD Primary Care Provider Cesar Tavares MD Unavailable [phone] Karie Jones RN Unavailable Unavailable Encounter Details Date Type Department Care Team (Latest Contact Info) Description 09/09/2019 10:55 AM UNDERGROUND FOREMAN - 09/09/2019 11:33 AM UNDERGROUND FOREMAN Hospital Encounter [facility] OP [address] [place] [id number] Tiffanie Nguyen APRN-TICKET AGENT [address] [place] [id number] Discharge Disposition: Home or Self Care Social [...] st Contact Info) Description 08/26/2024 11:00 AM UNDERGROUND FOREMAN Office Visit [facility] - Pulmonology [address] [place] [address], [place] [phone] Andrew Francis MD [address] [place] [address] OF PULMONARY/[place] [address] documented as of this encounter Procedures Procedure Name Priority Date/Time Associated Diagnosis Comments CARDIAC EKG ORDER 10/27/2019 2:0 7 PM CDT CARDIAC EKG ORDER 10/04/2019 9:3 0 AM UNDERGROUND FOREMAN XR CHEST 2VW Routine 09/09/2019 11:55 AM UNDERGROUND FOREMAN Pre-transplant evaluation for stem cell transplant XR PANOREX Routine 09/09/2019 11:55 AM UNDERGROUND FOREMAN Pre-transplant evaluation for stem cell transplant documented in this encounter Results * CARDIAC EKG ORDER (10/27/2019 2:07 PM CDT) Narrative 10/27/2019 2:07 PM CDT Ordered by an unspecified provider. Scanned Document CARDIAC SERVICES ORD ERABLES * CARDIAC EKG ORDER (10/04/2019 9:30 AM UNDERGROUND FOREMAN) Narrative 10/04/2019 9:30 AM UNDERGROUND FOREMAN Ordered by an unspecified provider. Scanned Document CARDIAC SERVICES ORD ERABLES * XR PANOREX (09/09/2019 11:55 AM UNDERGROUND FOREMAN) Anatomical Region Laterality Modality Head Radiographic Chayito ging 09/09/2019 11:5 1 AM UNDERGROUND FOREMAN Impressions 09/09/2019 3:27 PM UNDERGROUND FOREMAN IMPRESSION: All teeth are missing. Intact osseous structures. Report drafted by Yg Lee M.D. (resident) Dr. EMILIA Harris M.D. have personally reviewed and interpreted this examination/study. This report was electronically signed by EMILIA LA M.D. ??on 09/09/2019 3:27 PM . Narrative 09/09/2019 3:27 PM UNDERGROUND FOREMAN EXAMINATION: Panorex HISTORY: Z01.818: Pre-transplant evaluation for [...] LA M.D. on 09/09/2019 3:27 PM . Tiffanie Nguyen PROGRAM DEVELOPMENT SPECIALIST-TICKET AGENT DIAGNOSTIC IMAG ING ORDERABLES * XR CHEST 2VW (09/09/2019 11:55 AM UNDERGROUND FOREMAN) Anatomical Region Laterality Modality Chest Radiographic Chayito ging 09/09/2019 11:1 8 AM UNDERGROUND FOREMAN Impressions 09/09/2019 11:27 AM UNDERGROUND FOREMAN IMPRESSION: 1.No acute pulmonary process is seen. Report drafted by Yg Lee M.D. (resident) Dr. OMAR Harris have personally reviewed and interpreted this examination/study. This report was electronically signed by OMAR WOODSON ??on 09/09/2019 11:27 AM . Narrative 09/09/2019 11:27 AM UNDERGROUND FOREMAN EXAMINATION: XR CHEST 2VW HISTORY: Z01.818: Pre-transplant evaluation for stem cell transplant COMPARISON: None. FINDINGS: A right IJ CVC tip is in the SVC. No focal consolidation, pleural effusion, or pneumothorax is seen. The cardiomediastinal silhouette is normal. No acute fractures are seen. Procedure Note Omar Woodson, - 09/09/2019 EXAMINATION: XR CHEST 2VW HISTORY: Z01.818: Pre-transplant evaluation for stem cell transplant COMPARISON: None. FINDINGS: A right IJ CVC tip is in the SVC. No focal consolidation, pleural effusion, or pneumothorax is seen. The cardiomediastinal silhouette is normal. No acute fractures are seen. IMPRESSION: 1.No acute pulmonary process is seen. Report drafted by Yg Lee M.D. (resident) Dr. OMAR Harris have personally reviewed and interpreted this examination/study. This report was electronically signed by OMAR WOODSON on 09/09/2019 11:27 AM . Tiffanie Nguyen PROGRAM DEVELOPMENT SPECIALIST-TICKET AGENT DIAGNOSTIC IMAG ING ORDERABLES documented in this encounter Visit Diagnoses Diagnosis Pre-transplant evaluation for stem cell transplant documented in this encounter Care Teams Commercial Real Estate Agent Relationship Specialty Start Date End Date Ran Nuñez MD [address] [place] [address] PCP - General Family Medicine 03/22/19 12/22/20 Hillary Apple MD [address] [place] [address] Hematology and Oncology 03/17/19 Bill Ferrera MD [address] [place] [address] Hematology and Oncology 03/17/19 08/27/21 Tony Dumont MD [address] [place] [address] Hematology and Oncology 03/17/19 Shalini Segal MD [address] [place] [address] Hematology and Oncology 03/17/19 09/29/19 Karie Jones, RN Registered Nurse 03/17/19 09/21/19 Maryjo Reinoso, MANAGER PHP Crime Victim Specialist 03/17/19 Madyson Clay, PharmD 03/17/19 Dana Lala PROGRAM DEVELOPMENT SPECIALIST-BAND SPLITTER [address] [place] [address] 2[address] [place] [address] Oncology 03/17/19 Tiffanie Nguyen, PROGRAM DEVELOPMENT SPECIALIST-TICKET AGENT [address] [place] [address] 2nd [place] [address] Family Medicine 03/17/19 Stephanie Mahoney, RN Registered Nurse 03/17/19 10/29/21 Alycia Galvan, ROSEMARY 03/17/19 10/29/21 Cesar Tavares MD [address] [place] [address] [place] [address] Referring Physician Medical Oncology 03/23/19 Karie Jones, RN Registered Nurse 06/08/19 10/29/21 documented as of this encounter
--- OUTSIDE RECORDS SUMMARY | 2024-08-18 00:32 | XMS_ITS | Encounter Summary ---
Author Organization [facility] Address [address] [place] [address] Care Team Providers Care Photoengraving Apprentice Name Role Phone Hillary Apple MD Unavailable [phone] Bill Ferrera MD Unavailable [phone] Tony Dumont MD Unavailable [phone] Shalini Segal MD Unavailable [phone] Karie Jones RN Unavailable Unavailable Maryjo ReinosoW Unavailable Unavailable Madyson Clay PharmD Unavailable Unavaila Dana Galicia SADDLE STITCH OPERATOR-SINK MAKER Unavailable [phone] Tiffanie Nguyen SADDLE STITCH OPERATOR-OCEANIC SCIENCES PROFESSOR Unavailable [phone] Stephanie Mahoney RN Unavailable Unavailable Alycia Galvan RN Unavailable UnavailRan Mejía MD Primary Care Provider Cesar Tavares MD Unavailable [phone] Karie Jones RN Unavailable Unavailable Encounter Details Date Type Department Care Team (Late st Contact Info) Description 09/15/2019 Orders Only [facility] BMT CLINIC [address] [place] [address] Tiffanie Nguyen APRN-OCEANIC SCIENCES PROFESSOR [address] [place] [address] Pre-transplant evaluation for stem cell transplant Social [...] st Contact Info) Description 08/26/2024 11:00 AM APPLE SOLUTIONS CONSULTANT Office Visit [facility] - Pulmonology [address] [place] [address], [place] [phone] Andrew Francis MD [address] [place] [address] 2L DIV OF PULMONARY/[place] [address] documented as of this encounter Visit Diagnoses Diagnosis Pre-transplant evaluation for stem cell transplant- Primary documented in this encounter Care Teams Photoengraving Apprentice Relationship Specialty Start Date End Date Ran Nuñez MD [address] [place] [phone] PCP - General Family Medicine 03/22/19 12/22/20 Hillary Apple MD [address] [place] [address] Hematology and Oncology 03/17/19 Bill Ferrera MD [address] [place] [address] Hematology and Oncology 03/17/19 08/27/21 Tony Dumont MD [address] [place] [address] Hematology and Oncology 03/17/19 Shalini Segal MD [address] [place] [address] Hematology and Oncology 03/17/19 09/29/19 Karie Jones, RN Registered Nurse 03/17/19 09/21/19 Maryjo Reinoso, LINTER DRIER OPERATOR Puff Ironer 03/17/19 Madyson Clay, PharmD 03/17/19 Dana Lala, SADDLE STITCH OPERATOR-SINK MAKER [address] [place] [address] 2nd [place] [address] Oncology 03/17/19 Tiffanie Nguyen, SADDLE STITCH OPERATOR-OCEANIC SCIENCES PROFESSOR [address] [place] [address] 2nd [place] [address] Family Medicine 03/17/19 Stephanie Mahoney, RN Registered Nurse 03/17/19 10/29/21 Alycia Galvan, ROSEMARY 03/17/19 10/29/21 Cesar Tavares MD [address] [place] [address] Referring Physician Medical Oncology 03/23/19 Karie Jones, RN Registered Nurse 06/08/19 10/29/21 documented as of this encounter
--- OUTSIDE RECORDS SUMMARY | 2024-08-18 00:33 | XMS_ITS | Encounter Summary ---
Author Organization [facility] Address [address] [place] [place] [address] Care Team Providers Care Hat Presser Name Role Phone Hillary Apple MD Unavailable [phone] Bill Ferrera MD Unavailable [phone] Toyn Dumont MD Unavailable [phone] Shalini Segal MD Unavailable [phone] Karie Jones RN Unavailable Unavailable Maryjo ReinosoW Unavailable Unavailable Madyson Clay PharmD Unavailable Unavaila Dana Galicia POWER HAIR CLIPPER-WELDING MACHINE OPERATOR Unavailable [phone] Mckinley Silver PA-C Unavailable Unavail able Patrick, Tiffanie [place] POWER HAIR CLIPPER-[employer] TEACHER Unavailable [phone] Stephanie Mahoney RN Unavailable Unavailable Alycia Galvan RN Unavailable UnavailRan Mejía MD Primary Care Provider Cesar Tavares MD Unavailable [phone] Karie Jones RN Unavailable Unavailable Encounter Details Date Type Department Care Team (Late st Contact Info) Description 08/26/2019 Ambulatory Consult [facility] Pulmonary, Critical Care and Sleep Medicine [address] [place] [address] Andrew Francis MD [address] [facility] 2L DIV OF PULMONARY/[place] [address] Abnormal PFT Social History Tobacco Use Types Packs/Day Years [...] No 08/19/2019 documented as of this encounter Progress Notes * Andrew Francis MD - 08/28/2019 6:06 PM CST BMT Pulmonary Inpatient Pharmacist Note The patient is a 49 y/o man who I am asked to evaluate secondary to a pre- bronchodilator moderate obstructive ventilatory impairment on PFTs obtained prior to 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 He denies SOB at rest. He has very mild BARNES with activity that he suggests is secondary to deconditioning. He is minimally active. He denies wheezing, cough, nocturnal SOB, a h/o allergies or a h/o sinusitis. 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 On Bendamustine and Gazyva. 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 Meds: Reviewed. Social Hx: Approximately 15 py h/o cigarettes. Smokes approximately 1 MJ blunt daily. 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 Exposure to asbestos, metal dusts/fumes and chemicals. Exposure to dogs and cats. Lives in [place], [place]. Family Hx: Unrevealing. ROS: Gen: No fever,chills night sweats or weight loss Hearing: Normal Vision: Normal Speech: Normal Swallow: Normal Breathing: See HPI CV: No palipitations, syncope or chest pain Abd: No heartburn, nausea, vomiting, constipation, diarrhea or abd pain : No difficulty urinating or change in urine character Rheum: No joint pain, redness or swelling Skin: No new rashes Neuro: No seizures or tremors Psych: No acute anxiety or depression Exam: There were no vitals taken for this visit. General: Alert, cooperative, no distress, appears stated [...] rashes or lesions Data: Reviewed. Impression: -- Reversible moderate obstructive ventilatory impairment -- Use of MJ blunts Recommendations: Although the patient has reversible obstruction on spirometry, he has no symptoms to suggest the diagnosis of asthma. I believe his is not at significantly increased risk for adversepulmonary complications of an autologous HSCT with BEAM conditioning. He was advised to stop smoking MJ. Andrew Francis M.D. Console Assembler of Internal Medicine Division of Pulmonary, Critical Care and Sleep Medicine [facility] STERED HEALTH NURSE documented in this encounter Plan of Treatment Upcoming Encounters Date Type Department Care Team (Late st Contact Info) Description 08/26/2024 11:00 AM REGISTERED HEALTH NURSE Office Visit [facility] - Pulmonology [address] [place] [address], [place] [address] Andrew Francis MD [address] OF PULMONARY/[place] [address] documented as of this encounter Visit Diagnoses Diagnosis Abnormal PFT- Primary Nonspecific abnormal results of pulmonary system function study documented in this encounter Care Teams Hat Presser Relationship Specialty Start Date End Date Ran Nuñez MD [address] [place] [address] PCP - General Family Medicine 03/22/19 12/22/20 Hillary Apple MD [address] [place] [address] Hematology and Oncology 03/17/19 Bill Ferrera MD [address] [place] [address] Hematology and Oncology 03/17/19 08/27/21 Tony Dumont MD [address] [place] [address] Hematology and Oncology 03/17/19 Shalini Segal MD [address] [place] [address] Hematology and Oncology 03/17/19 09/29/19 Karie Jones, ROSEMARY Registered Nurse 03/17/19 09/21/19 Maryjo Renioso LCSW Supervisor Extrusion 03/17/19 Madyson Clay, PharmD 03/17/19 Dana Lala APRN-WELDING MACHINE OPERATOR [address] [place] [address] 2nd [place] [address] Oncology 03/17/19 Mckinley Silver PA-C [address] [place] [address] 2[place] [address] Physician Accounts Receivable Executive 03/17/19 09/08/19 Tiffanie Nguyen APRN-ERIKA [address] 2nd [place] [address] Family Medicine 03/17/19 Stephanie Mahoney, RN Registered Nurse 03/17/19 10/29/21 Alycia Galvan, ROSEMARY 03/17/19 10/29/21 Cesar Tavares MD [address] [place] [address] Referring Physician Medical Oncology 03/23/19 Karie Jones, RN Registered Nurse 06/08/19 10/29/21 documented as of this encounter
--- OUTSIDE RECORDS SUMMARY | 2024-08-18 00:33 | XMS_ITS | Encounter Summary ---
Author Organization [facility] Address [address] [place] [address] Care Team Providers Care Rail Car Repairer Name Role Phone Hillary Apple MD Unavailable [phone] Bill Ferrera MD Unavailable [phone] Tony Dumont MD Unavailable [phone] Shalini Segal MD Unavailable [phone] Karie Jones RN Unavailable Unavailable Maryjo ReinosoW Unavailable Unavailable Madyson Clay PharmD Unavailable Unavaila Dana Galicia COUNTER WEIGHER-CAMPUS DIRECTOR Unavailable [phone] Tiffanie Nguyen COUNTER WEIGHER-CORK TIPPER Unavailable [phone] Stephanie Mahoney RN Unavailable Unavailable Alycia Galvan RN Unavailable UnavailRan Mejía MD Primary Care Provider Cesar Tavares MD Unavailable [phone] Karie Jones RN Unavailable Unavailable Encounter Details Date Type Department Care Team (Late st Contact Info) Description 09/09/2019 Orders Only [facility] BMT CLINIC [address] [place] [address] Tiffanie Nguyen APRN-CORK TIPPER [address] [place] [address] Pre-transplant evaluation for stem cell transplant Social [...] Contact Info) Description 08/26/2024 11:00 AM SECURITIES COUNSELOR Office Visit [facility] - Pulmonology [address] [place] [address], [place] [phone] Andrew Francis MD [address] [place] [address] OF PULMONARY/[place] [address] documented as of this encounter Results * COTININE, URINE (09/09/2019 2:25 PM SECURITIES COUNSELOR) Cotinine Urine Negative Cutoff=30 0 ng/mL 09/10/2019 7:07 PM SECURITIES COUNSELOR [facility] ([facility]) Drug Screen Comment Comment 09/10 7:07 PM SECURITIES COUNSELOR [facility] ([facility]) Comment: This analysis is performed by immunoassay. Positive findings are unconfirmed analytical test results; if results do not support expected clinical finding, confirmation by an alternate methodology is recommended. Patient metabolic variables, specific drug chemistry, and specimen characteristics can affect test outcome. Technical consultation is available at [email or web address], or call toll free [phone]. Urine URINE SPECIMEN OBTAINED BY CLEAN CATCH PROCEDURE / Unknown Collection / Unknown 09/09/2019 2:25 PM SECURITIES COUNSELOR 09/09/2019 2:25 PM SECURITIES COUNSELOR Narrative [facility] ([facility]) - 09/10/2019 7:07 PM SECURITIES COUNSELOR Performed at: ??01 - [facility] [address] [facility], [place], [place] [id number] Warehouse Checker: John Escalera PhD, Phone: ??[phone] Performed at: ??02 - [facility] [place] [address] [place], [place] ??[id number] Warehouse Checker: Constantino Linares PhD, Phone: ??[phone] Tiffanie Nguyen COUNTER WEIGHER-CORK TIPPER LAB - URINE LINDA MIRIAN ORDERABLES [facility] ([facility]) [address] [place] [address] documented in this encounter Visit Diagnoses Diagnosis Pre-transplant evaluation for stem cell transplant- Primary documented in this encounter Care Teams Rail Car Repairer Relationship Specialty Start Date End Date Ran Nuñez MD [address] [place] [address] PCP - General Family Medicine 03/22/19 12/22/20 Hillary Apple MD [facility] [place] [address] Hematology and Oncology 03/17/19 Bill Ferrera MD [facility] [place] [address] Hematology and Oncology 03/17/19 08/27/21 Tony Dumont MD [facility] [place] [address] Hematology and Oncology 03/17/19 Shalini Segal MD [address] [place] [address] Hematology and Oncology 03/17/19 09/29/19 Karie Jones, RN Registered Nurse 03/17/19 09/21/19 Maryjo Reinoso, REAL ESTATE AGENT/BROKER Application Analyst 03/17/19 Madyson Clay, PharmD 03/17/19 Dana Lala, COUNTER WEIGHER-CAMPUS DIRECTOR [address] [facility] 2nd [place] [address] Oncology 03/17/19 Tiffanie Nguyen, COUNTER WEIGHER-CORK TIPPER [address] [place] [address] Family Medicine 03/17/19 Stephanie Mahoney, RN Registered Nurse 03/17/19 10/29/21 Alycia Galvan, ROSEMARY 03/17/19 10/29/21 Cesar Tavares MD [address] [place] [address] [place] [address] Referring Physician Medical Oncology 03/23/19 Karie Jones, RN Registered Nurse 06/08/19 10/29/21 documented as of this encounter
--- OUTSIDE RECORDS SUMMARY | 2024-08-18 00:33 | XMS_ITS | Encounter Summary ---
Author Organization [facility] Address [address] [place] [address] Care Team Providers Care Dinkey Engine Mechanic Name Role Phone Hillary Apple MD Unavailable [phone] Bill Ferrera MD Unavailable [phone] Tony Dumont MD Unavailable [phone] Shalini Segal MD Unavailable [phone] Karie Jones RN Unavailable Unavailable Maryjo ReinosoW Unavailable Unavailable Madyson Clay PharmD Unavailable Unavaila Dana Galicia YOUTH SUPPORT WORKER-GENERAL PEDIATRICIAN Unavailable [phone] Tiffanie Nguyen YOUTH SUPPORT WORKER-MANAGER PAPER Unavailable [phone] Stephanie Mahoney RN Unavailable Unavailable Alycia Galvan RN Unavailable UnavailRan Mejía MD Primary Care Provider Cesar Tavares MD Unavailable [phone] Karie Jones RN Unavailable Unavailable Encounter Details Date Type Department Care Team (Late st Contact Info) Description 09/09/2019 Orders Only [facility] [address] [place] [address] Tiffanie Nguyen APRN-MANAGER PAPER [address] [place] [address] Pre-transplant evaluation for stem cell transplant Social [...] st Contact Info) Description 08/26/2024 11:00 AM DEPENDENCY DIRECTOR Office Visit [facility] - Pulmonology [address] [place] [address], [place] [id number] Andrew Francis MD [address] [place] [address] OF PULMONARY/[place] [address] documented as of this encounter Results * (ABNORMAL) URINALYSIS W/MICROSCOPIC NO CULTURE (09/09/2019 2:10 PM [facility]) Color UA Yellow Straw, Yellow, Colorless 09/09/2019 2:19 PM [facility] Clarity UA Clear Clear, Slt Cloudy 09/09/2019 2:19 PM [facility] Specific Beverly UA 1.017 1.005 - 1.030 09/09/2019 2:19 PM [facility] pH UA 5.0 5.0 - 8.0 pH 09/09/2019 2:19 PM [facility] Protein UA Negative Negative mg/dL 09/09/2019 2:19 PM [facility] Glucose UA Negative Negative mg/dL 09/09/2019 2:19 PM [facility] Ketone UA Negative Negative mg/dL 09/09/2019 2:19 PM [facility] Bilirubin UA Negative Negative mg/dL 09/09/2019 2:19 PM [facility] Blood UA Negative Negative 09/09/2019 2:19 PM [facility] Nitrite UA Negative Negative 09/09/2019 2:19 PM [facility] Leukocyte Esterase Negative Negative 09/09/2019 2:19 PM [facility] Urobilinogen UA Negative Negative mg/dL 09/09/2019 2:19 PM [facility] RBC UA 0-2 None Seen, 0-2, 3-5 /HPF 09/09/2019 2:19 PM [facility] WBC UA 0-5 None Seen, 0-5 /HPF 09/09/2019 2:19 PM [facility] Bacteria UA Trace None, Trace /HPF 09/09/2019 2:19 PM [facility] Squamous Epithelial Cells UA 0-2 None Seen, 0-2 /HPF 09/09/2019 2:19 PM [facility] Mucus UA 1+ None, 1+ /LPF 09/09/2019 2:19 PM [facility] Hyaline Casts UA 3-5(A) None Seen, 0-2 /LPF 09/09/2019 2:19 PM [facility] Urine URINE SPECIMEN OBTAINED BY CLEAN CATCH PROCEDURE / Unknown Collection / Unknown 09/09/2019 2:10 PM DEPENDENCY DIRECTOR 09/09/2019 2:10 PM DEPENDENCY DIRECTOR Narrative [facility] - 09/09/2019 2:19 PM DEPENDENCY DIRECTOR Tiffanie Nguyen YOUTH SUPPORT WORKER-MANAGER PAPER LAB - URINALYSI S ORDERABLES [address] [phone] * SICKLE CELL SCREEN (09/09/2019 12:42 PM DEPENDENCY DIRECTOR) Sickle Cell Screen Negative Negative 09/09/2019 1:17 PM [facility] Blood BLOOD SPECIMEN / Unknown Venipuncture / Unknown 09/09/2019 12:42 PM DEPENDENCY DIRECTOR 09/09/2019 12:50 PM DEPENDENCY DIRECTOR Tiffanie Nguyen [facility] - HEMATOLOG Y ORDERABLES [address] [phone] * PROSTATE SPECIFIC ANTIGEN SCREEN (09/09/2019 12:42 PM DEPENDENCY DIRECTOR) Pathologist [facility] PSA Total 2.7 0.0 - 4.0 ng/mL 09/09/2019 1:35 PM DEPENDENCY DIRECTOR [facility] Blood BLOOD SPECIMEN / Unknown Venipuncture / Unknown 09/09/2019 12:42 PM DEPENDENCY DIRECTOR 09/09/2019 12:50 PM DEPENDENCY DIRECTOR Tiffanie Nguyen [facility] LAB - CHEMISTRY ORDERABLES Performing Organization Address City/[facility] Co de Phone Number [address] [phone] * QUANTIFERON-TB GOLD PLUS 4-TUBE (09/09/2019 12:42 PM DEPENDENCY DIRECTOR) Pathologist [facility] QuantiFERON Criteria Comment 09/13/2019 12:06 AM DEPENDENCY DIRECTOR [facility]) Comment: The QuantiFERON-TB Gold Plus result is determined by subtracting the Nil value from either TB antigen (Ag) tube. The mitogen tube serves as a control for the test. QuantiFERON TB1 Ag Value 0.25 IU/mL 09/13/2019 12:06 AM DEPENDENCY DIRECTOR [facility]) QuantiFERON TB2 Ag Value 0.09 IU/mL 09/13/2019 12:06 AM DEPENDENCY DIRECTOR [facility]) QuantiFERON Nil Value 0.03 IU/mL 09/13/2019 12:06 AM DEPENDENCY DIRECTOR [facility]) QuantiFERON Mitogen Value >10.00 IU/mL 09/13/2019 12:06 AM DEPENDENCY DIRECTOR [facility]) QuantiFERON-TB Gold Plus Negative Negative 09/13/2019 12:06 AM DEPENDENCY DIRECTOR [facility] ([facility]) Comment: The specimen received for QuantiFERON testing was incubated by the ordering institution. ??Specific procedures outlined in our Directory of Services and in the package insert for the QuantiFERON Gold (In Tube) test must be followed to enable for proper stimulation of cells for the production of interferon gamma. Blood BLOOD SPECIMEN / Unknown Venipuncture / Unknown 09/09/2019 12:42 PM DEPENDENCY DIRECTOR 09/09/2019 1:20 PM DEPENDENCY DIRECTOR Narrative [facility] ([facility]) - 09/13/2019 12:06 AM DEPENDENCY DIRECTOR Performed at: ??01 - [facility] [address] [place] [address] ??[phone] Field Care Advocate: Constantino Linares PhD, Phone: ??[phone] Tiffanie Nguyen YOUTH SUPPORT WORKER-MANAGER PAPER LAB - CHEMISTRY ORDERABLES [facility] ([facility]) [address] [place] [address], [facility] * (ABNORMAL) DONOR PANEL [id number] (09/09/2019 12:42 PM DEPENDENCY DIRECTOR) Donor Hepatitis B Surface Antigen Negative Negative 09/12/2019 11:07 AM DEPENDENCY DIRECTOR [facility] ([facility]) Comment:Test performed with Bartholomew Prism HBsAg kit. Donor Hepatitis B Core Virus Antibody Total Negative Negative 09/12/2019 11:07 AM DEPENDENCY DIRECTOR [facility] ([facility]) Comment:Test performed with Bartholomew Prism HBcore kit. Donor Hepatitis C Antibody Negative Negative 09/12/2019 11:07 AM DEPENDENCY DIRECTOR [facility] ([facility]) Comment:Test performed with Bartholomew Prism HCV kit. Donor Syphilis (T pallidum) Non Reactive Non Reactive 09/12/2019 11:07 AM DEPENDENCY DIRECTOR [facility] ([facility]) Comment:Test performed with StaffInsight PK TP kit. Donor Cytomegalovirus Total Antibody Reactive(A) Non Reactive 09/12/2019 11:07 AM DEPENDENCY DIRECTOR [facility] ([facility]) Comment:Test performed with Franchisee Gladiator Capture-CMV IgG and IgM kit. Donor HIV-1/O/2 Antibody Negative Negative 09/12/2019 11:07 AM DEPENDENCY DIRECTOR [facility] ([facility]) Comment:Test performed with Bartholomew Prism HIV O Plus kit. Donor HIV-1/HCV/HBV Comment Non Reactive 09/12/2019 11:07 AM DEPENDENCY DIRECTOR [facility] ([facility]) Comment: ?Non-Reactive for HIV-1 and HIV-2 RNA ?Non-Reactive for HCV RNA ?Non-Reactive for HBV DNA Test performed with Bernard MPX kit. Donor HTLV-I/II Antibodies Qual Negative Negative 09/12/2019 11:07 AM DEPENDENCY DIRECTOR [facility] ([facility]) Comment:Test performed with Bartholomew Prism HTLV-I/HTLV-II assay. Donor Zika Virus MEL Assay Non Reactive Non Reactive 09/12/2019 11:07 AM DEPENDENCY DIRECTOR [facility] ([facility]) Comment:Test performed with Bernard Zika kit. Donor WNV MEL Assay Non Reactive Non Reactive 09/12/2019 11:07 AM DEPENDENCY DIRECTOR [facility] ([facility]) Comment:Test performed with Bernard WNV kit. Donor T cruzi (Chagas) Non Reactive Non Reactive 09/12/2019 11:07 AM DEPENDENCY DIRECTOR [facility] ([facility]) Comment:Test performed with Bartholomew Prism Chagas assay. Blood BLOOD SPECIMEN / Unknown Venipuncture / Unknown 09/09/2019 12:42 PM DEPENDENCY DIRECTOR 09/09/2019 2:36 PM DEPENDENCY DIRECTOR Narrative [facility] ([facility]) - 09/12/2019 11:07 AM DEPENDENCY DIRECTOR Performed at: ??01 - [facility] [address] [place] [address] ??[phone] Field Care Advocate: Rosalia Parra PhD, Phone: ??[phone] Tiffanie Nguyen YOUTH SUPPORT WORKER-MANAGER PAPER LAB - CHEMISTRY ORDERABLES Performing Organization Address City/State/[facility] Co de Phone Number [facility] ([facility]) [address] [place] [address] * TOXOPLASMA GONDII ANTIBODY IGG (09/09/2019 12:42 PM DEPENDENCY DIRECTOR) Toxoplasma gondii Antibody IgG Quantitative <3.0 0.0 - 7.1 IU/mL 09/10/2019 9:09 AM DEPENDENCY DIRECTOR [facility] ([facility]) Comment: ? Negative ?<7.2 ? Equivocal ??7.2 - 8.7 ? Positive ?>8.7 Blood BLOOD SPECIMEN / Unknown Venipuncture / Unknown 09/09/2019 12:42 PM DEPENDENCY DIRECTOR 09/09/2019 12:51 PM DEPENDENCY DIRECTOR Narrative [facility] ([facility]) - 09/10/2019 9:09 AM DEPENDENCY DIRECTOR Performed at: ??01 - [facility] [address] [place], [place] ??[id number] Field Care Advocate: Constantino Linares PhD, Phone: ??[phone] Tiffanie Nguyen YOUTH SUPPORT WORKER-MANAGER PAPER LAB - CHEMISTRY ORDERABLES Performing Organization Address City/State/[facility] Co de Phone Number [facility] ([facility]) [address] [place] [address] * VARICELLA ZOSTER ANTIBODY IGM (09/09/2019 12:42 PM DEPENDENCY DIRECTOR) Varicella zoster Virus Antibody IgM <0.91 0.00 - 0.90 index 09/10/2019 3:08 PM DEPENDENCY DIRECTOR [facility] ([facility]) Comment: ? Negative ?<0.91 ? Borderline ??0.91 - 1.09 ? Positive ?>1.09 Blood BLOOD SPECIMEN / Unknown Venipuncture / Unknown 09/09/2019 12:42 PM DEPENDENCY DIRECTOR 09/09/2019 12:51 PM DEPENDENCY DIRECTOR Narrative [facility] ([facility]) - 09/10/2019 3:08 PM DEPENDENCY DIRECTOR Performed at: ??01 - [facility] [address] [place], [place] ??[phone] Field Care Advocate: Constantino Linares PhD, Phone: ??[phone] Tiffanie Nguyen YOUTH SUPPORT WORKER-MANAGER PAPER LAB - CHEMISTRY ORDERABLES [facility] ([facility]) [address] [place] [address], [facility] * (ABNORMAL) HERPES SIMPLEX 1+2 AB IGG SPEC RFLX HSV2 (09/09/2019 12:42 PM DEPENDENCY DIRECTOR) Herpes Simplex Virus I Antibody IgG Type Specific Index 9.65(H) 0.00 - 0.90 index 09/10/2019 9:09 AM DEPENDENCY DIRECTOR [facility] ([facility]) Comment: ? Negative ?<0.91 ? Equivocal 0.91 - 1.09 ? Positive ?>1.09 Note: Negative indicates no antibodies detected to HSV-1. Equivocal may suggest early infection. ??If clinically appropriate, retest at later date. Positive indicates antibodies detected to HSV-1. Herpes Simplex Virus 2 Antibody IgG Type Specific <0.91 0.00 - 0.90 index 09/10/2019 9:09 AM DEPENDENCY DIRECTOR [facility] ([facility]) Comment: ? Negative ?<0.91 ? Equivocal 0.91 - 1.09 ? Positive ?>1.09 Note: Negative indicates no antibodies detected to HSV-2. Equivocal may suggest early infection. ??If clinically appropriate, retest at later date. Positive indicates antibodies detected to HSV-2. Blood BLOOD SPECIMEN / Unknown Venipuncture / Unknown 09/09/2019 12:42 PM DEPENDENCY DIRECTOR 09/09/2019 12:51 PM DEPENDENCY DIRECTOR Narrative [facility] ([facility]) - 09/10/2019 9:09 AM DEPENDENCY DIRECTOR Performed at: ??01 - [facility] [address] [place], [place] ??[phone] Field Care Advocate: Constantino Linares PhD, Phone: ??[phone] Tiffanie Nguyen YOUTH SUPPORT WORKER-MANAGER PAPER LAB - SEROLOGY ORDERABLES Performing Organization Address City/State/[facility] Co de Phone Number [facility] ([facility]) [address] [place] [address] * ISA-GILL VIRUS ANTIBODY TO VCA IGM (09/09/2019 12:42 PM DEPENDENCY DIRECTOR) Isa-Gill Virus Antibody IgM Viral Capsid Antigen <10.0 0.0 - 43.9 U/mL 09/10/2019 4:34 PM DEPENDENCY DIRECTOR [facility] ([facility]) Comment: INTERPRETIVE INFORMATION: Isa-Gill Virus Antibody to ?Viral Capsid Antigen, IgM ??35.9 U/mL or less.......Not Detected ?36.0-43.9 U/mL..........Indeterminate - Repeat testing in ?10-14 days may be helpful. ??44.0 U/mL or greater....Detected Performed by [facility] [facility], [address] [place] [id number] [email or web address], Toribio Elizondo MD, Lab. Director Blood BLOOD SPECIMEN / Unknown Venipuncture / Unknown 09/09/2019 12:42 PM DEPENDENCY DIRECTOR 09/09/2019 12:51 PM DEPENDENCY DIRECTOR Lara Patrcik [facility] - SEROLOG[facility] ORDERABLES Performing Organization Address [facility] de Phone Number [facility] ([facility]) [address] * (ABNORMAL) ISA-GILL VIRUS ANTIBODY TO VCA IGG (09/09/2019 12:42 PM DEPENDENCY DIRECTOR) [facility] Isa-Gill Virus Antibody IgG Viral Capsid Antigen 168.0(H) 0.0 - 21.9 U/mL 09/10/2019 4:38 PM DEPENDENCY DIRECTOR [facility] ([facility]) Comment: INTERPRETIVE INFORMATION: Isa-Gill Virus Antibody to ?Viral Capsid Antigen, IgG ??17.9 U/mL or less.......Not Detected ??18.0-21.9 U/mL..........Indeterminate - Repeat testing in ?10-14 days may be helpful. ??22.0 U/mL or greater....Detected Performed by [facility] [employer], [address] [place] [address] [email or web address], Toribio Elizondo MD, Lab. Director Blood BLOOD SPECIMEN / Unknown Venipuncture / Unknown 09/09/2019 12:42 PM DEPENDENCY DIRECTOR 09/09/2019 12:51 PM DEPENDENCY DIRECTOR Tiffanie Nguyen [facility] LAB - CHEMISTRY ORDERABLES Performing Organization Address [facility]/ZIP Co de Phone Number [facility] ([facility]) [address] * (ABNORMAL) CYTOMEGALOVIRUS (CMV) QUANTITATIVE PLASMA (09/09/2019 12:42 PM DEPENDENCY DIRECTOR) [facility] CMV Quant By PCR, Blood 79(H) Not Detected IU/mL 09/10/2019 4:25 PM DEPENDENCY DIRECTOR [facility] CMV Quant by PCR, Interp Detected( A) Not Detected 09/10/2019 4:25 PM DEPENDENCY DIRECTOR [facility] Blood BLOOD SPECIMEN / Unknown Venipuncture / Unknown 09/09/2019 12:42 PM DEPENDENCY DIRECTOR 09/09/2019 12:50 PM DEPENDENCY DIRECTOR Narrative [facility] - 09/10/2019 4:25 PM DEPENDENCY DIRECTOR The CMV DNA analysis utilized real-time PCR, [...] test methodology (Bartholomew RealTime CMV). Tiffanie Nguyen YOUTH SUPPORT WORKER-MANAGER PAPER LAB - CHEMISTRY ORDERABLES [facility] [address] [place], [place] [address], [facility] [phone] * HEPATITIS C ANTIBODY (09/09/2019 12:42 PM DEPENDENCY DIRECTOR) Hepatitis C Antibody Non-react robyn Non-reac tive 09/09/2019 1:46 PM DEPENDENCY DIRECTOR [facility] Comment: Hepatitis C Antibody screen indicates no serologic evidence of past or current infection with Hepatitis C Virus. Patients with unexplained liver disease who are immunocompromised or suspected of having acute Hepatitis C infection may benefit from Nucleic Acid Test (MEL) for Hepatitis C Viral RNA to confirm Hepatitis C status. Blood BLOOD SPECIMEN / Unknown Venipuncture / Unknown 09/09/2019 12:42 PM DEPENDENCY DIRECTOR 09/09/2019 12:51 PM DEPENDENCY DIRECTOR Tiffanie Alvess YOUTH SUPPORT [facility] LAB - CHEMISTRY ORDERABLES Performing Organization Address [facility] Co de Phone Number [address] [phone] * (ABNORMAL) HEPATITIS B SURFACE ANTIBODY (09/09/2019 12:42 PM DEPENDENCY DIRECTOR) Hepatitis B Virus Surface Antibody Reactive( A) Non-react robyn 09/09/2019 1:46 PM DEPENDENCY DIRECTOR [facility] Comment: > 12 mIU/mL Hepatitis B surface Antibody (HBsAb). Reactive for HBsAb - individual is considered immune to Hepatitis B Virus infection. Hepatitis B Surface Antibody Quantitative 156.2(H) <8.0 mIU/mL 09/09/2019 1:46 PM DEPENDENCY DIRECTOR [facility] Comment: Hepatitis B Surface Antibody Numeric Result Interpretation: ? Nonreactive: ?<8.0 mIU/mL ? Indeterminate: ??8.0 - 12.0 mIU/mL ? Reactive: ?>12.0 mIU/mL ? Blood BLOOD SPECIMEN / Unknown Venipuncture / Unknown 09/09/2019 12:42 PM DEPENDENCY DIRECTOR 09/09/2019 12:51 PM DEPENDENCY DIRECTOR Tiffanie Nguyen YOUTH SUPPORT [facility] LAB - CHEMISTRY ORDERABLES Performing Organization Address [facility] Co de Phone Number [address] [phone] * HEPATITIS A IGM ANTIBODY (09/09/2019 12:42 PM DEPENDENCY DIRECTOR) Pathologist [facility] Hepatitis A Virus Antibody IgM Non-reacti ve Non-reacti ve 09/09/2019 1:46 PM DEPENDENCY DIRECTOR [facility] Blood BLOOD SPECIMEN / Unknown Venipuncture / Unknown 09/09/2019 12:42 PM DEPENDENCY DIRECTOR 09/09/2019 12:51 PM DEPENDENCY DIRECTOR Tiffanie Nguyen [facility] LAB - CHEMISTRY ORDERABLES [facility] [address] [phone] * (ABNORMAL) HEPATITIS A ANTIBODY (09/09/2019 12:42 PM DEPENDENCY DIRECTOR) [facility] Hepatitis A Virus Antibody Total Positive(A ) Negative 09/10/2019 9:09 AM DEPENDENCY DIRECTOR [facility] ([facility]) Blood BLOOD SPECIMEN / Unknown Venipuncture / Unknown 09/09/2019 12:42 PM DEPENDENCY DIRECTOR 09/09/2019 12:51 PM DEPENDENCY DIRECTOR Narrative [facility] ([facility]) - 09/10/2019 9:09 AM DEPENDENCY DIRECTOR Performed at: ??01 - [facility] [address] [place], [place] ??[phone] Field Care Advocate: Constantino Linares PhD, Phone: ??[phone] Tiffanie Alvess [facility] LAB - CHEMISTRY ORDERABLES Performing Organization Address City/[facility]/ZIP Co de Phone Number [facility] ([facility]) [address] [place] [address] * TYPE + SCREEN PANEL (09/09/2019 12:42 PM DEPENDENCY DIRECTOR) [facility] Antibody Screen NEG 0 1:33 PM DEPENDENCY DIRECTOR [facility] ABO Rh A POS 09/09/2019 1:33 PM DEPENDENCY DIRECTOR [facility] Blood Bank BLOOD SPECIMEN / Unknown Venipuncture / Unknown 09/09/2019 12:42 PM DEPENDENCY DIRECTOR 09/09/2019 12:52 PM DEPENDENCY DIRECTOR Tiffanie Alvess [facility] LAB - BLOOD BAN K ORDERABLES Performing Organization Address [facility]/ZIP Co de Phone Number [facility] [address] [place] [address] * RETIC COUNT (09/09/2019 12:42 PM DEPENDENCY DIRECTOR) Reticulocyte % 1.9 0.4 - 2.5 % 09/09/2019 1:06 PM DEPENDENCY DIRECTOR [facility] Reticulocyte Absolute 0.08 0.02 - 0.13 10? 6 /uL 09/09/2019 1:06 PM DEPENDENCY DIRECTOR [facility] Blood BLOOD SPECIMEN / Unknown Venipuncture / Unknown 09/09/2019 12:42 PM DEPENDENCY DIRECTOR 09/09/2019 12:50 PM DEPENDENCY DIRECTOR Tiffanie Nguyen [facility] LAB - HEMATOLOG Y ORDERABLES Performing Organization Address [facility]/ZIP Co de Phone Number [address] [phone] * (ABNORMAL) CHOLESTEROL BLOOD (09/09/2019 12:42 PM DEPENDENCY DIRECTOR) Cholesterol Total 214(H) <200 mg/dL 09/09/2019 1:15 PM DEPENDENCY DIRECTOR [facility] Blood BLOOD SPECIMEN / Unknown Venipuncture / Unknown 09/09/2019 12:42 PM DEPENDENCY DIRECTOR 09/09/2019 12:50 PM DEPENDENCY DIRECTOR Tiffanie Alvess [facility] LAB - CHEMISTRY ORDERABLES Performing Organization Address [facility]/ZIP Co de Phone Number [address] [phone] * (ABNORMAL) TRIGLYCERIDES BLOOD (09/09/2019 12:42 PM DEPENDENCY DIRECTOR) Triglycerides 192(H) <150 mg/dL 09/09/2019 1:26 PM DEPENDENCY DIRECTOR [facility] Comment: ATP III Classification of Triglycerides: ?<150 mg/dL: ??Normal ? 150 - 199 mg/dL: ??Borderline High ? 200 - 400 mg/dL: ??High ?>500 mg/dL: ??Very High Blood BLOOD SPECIMEN / Unknown Venipuncture / Unknown 09/09/2019 12:42 PM DEPENDENCY DIRECTOR 09/09/2019 12:50 PM DEPENDENCY DIRECTOR Tiffanie Nguyen YOUTH SUPPORT WORKER-MANAGER PAPER LAB - CHEMISTRY ORDERABLES Performing Organization Address [facility] Co de Phone Number [address] [phone] * (ABNORMAL) VITAMIN D 25-HYDROXY (09/09/2019 12:42 PM DEPENDENCY DIRECTOR) Vitamin D, 25 Hydroxy 29.0(L) See comment: ng/mL 09/09/2019 1:50 PM DEPENDENCY DIRECTOR [facility] Comment: The recommendations for 25-Hydroxy Vitamin D [...] Unknown Venipuncture / Unknown 09/09/2019 12:42 PM DEPENDENCY DIRECTOR 09/09/2019 12:50 PM DEPENDENCY DIRECTOR Tiffanie Nguyen YOUTH SUPPORT WORKER-MANAGER PAPER LAB - CHEMISTRY ORDERABLES Performing Organization Address [facility]/ZIP Co de Phone Number [address] [phone] * (ABNORMAL) TRANSFERRIN (09/09/2019 12:42 PM DEPENDENCY DIRECTOR) Transferrin 227 174 - 382 mg/dL 09/09/2019 1:18 PM DEPENDENCY DIRECTOR [facility] Transferrin Saturation % 15(L) 16 - 50 % 09/09/2019 1:18 PM DEPENDENCY DIRECTOR [facility] Blood BLOOD SPECIMEN / Unknown Venipuncture / Unknown 09/09/2019 12:42 PM DEPENDENCY DIRECTOR 09/09/2019 12:51 PM DEPENDENCY DIRECTOR Tiffanie Nguyen [facility] [place] [address], [facility] [phone] * (ABNORMAL) IRON BLOOD (09/09/2019 12:42 PM DEPENDENCY DIRECTOR) Iron 43(L) 50 - 175 mcg/dL 09/09/2019 1:18 PM DEPENDENCY DIRECTOR [facility] Blood BLOOD SPECIMEN / Unknown Venipuncture / Unknown 09/09/2019 12:42 PM DEPENDENCY DIRECTOR 09/09/2019 12:51 PM DEPENDENCY DIRECTOR Tiffanie Nguyen [facility] [place] [address], [facility] [phone] * FERRITIN (09/09/2019 12:42 PM DEPENDENCY DIRECTOR) Ferritin 49 22 - 275 ng/mL 09/09/2019 1:38 PM DEPENDENCY DIRECTOR [facility] Blood BLOOD SPECIMEN / Unknown Venipuncture / Unknown 09/09/2019 12:42 PM DEPENDENCY DIRECTOR 09/09/2019 12:51 PM DEPENDENCY DIRECTOR Tiffanie Nguyen [email or web address] [place] [address], [facility] [phone] * FIBRINOGEN ACTIVITY (09/09/2019 12:42 PM DEPENDENCY DIRECTOR) Fibrinogen Clauss 365 200 - 400 mg/dL 09/09/2019 1:17 PM DEPENDENCY DIRECTOR [facility] Blood BLOOD SPECIMEN / Unknown Venipuncture / Unknown 09/09/2019 12:42 PM DEPENDENCY DIRECTOR 09/09/2019 12:50 PM DEPENDENCY DIRECTOR Tiffanie Nguyen YOUTH SUPPORT WORKER-MANAGER PAPER LAB - COAGULATI ON ORDERABLES [address] [phone] * PTT [facility] (09/09/2019 12:42 PM DEPENDENCY DIRECTOR) Pathologist [facility] APTT 27.4 23.0 - 38.4 Seconds 09/09/2019 1:17 PM DEPENDENCY DIRECTOR [facility] Comment: * Please Note: ??New therapeutic range for heparin therapy * Suggested therapeutic range for full dose I.V. unfractionated heparin therapy for venous thromboembolism is 71 to 109 seconds. Blood BLOOD SPECIMEN / Unknown Venipuncture / Unknown 09/09/2019 12:42 PM DEPENDENCY DIRECTOR 09/09/2019 12:50 PM DEPENDENCY DIRECTOR Tiffanie Nguyen YOUTH SUPPORT WORKER-MANAGER PAPER LAB - COAGULATI ON ORDERABLES [address] [phone] * PT-INR [facility] (09/09/2019 12:42 PM DEPENDENCY DIRECTOR) PT 12.9 12.1 - 14.8 Seconds 09/09/2019 1:16 PM [facility] INR 1.0 See Comment 09/09/2019 1:16 PM [facility] Comment: The suggested therapeutic range for standard coumadin (warfarin) therapy is an INR of 2.0-3.0. For high-risk patients (Mechanical Mitral Valve Prosthesis, etc.), the suggested prophylactic therapeutic range is an INR of 2.5-3.5. Blood BLOOD SPECIMEN / Unknown Venipuncture / Unknown 09/09/2019 12:42 PM DEPENDENCY DIRECTOR 09/09/2019 12:50 PM DEPENDENCY DIRECTOR Tiffanie Nguyen [facility] LAB - COAGULATI ON ORDERABLES [address] [phone] * [facility] BLOOD (09/09/2019 12:42 PM DEPENDENCY DIRECTOR) Pathologist [facility] LDH Total 198 125 - 243 Units/L 09/09/2019 1:15 PM [facility] Blood BLOOD SPECIMEN / Unknown Venipuncture / Unknown 09/09/2019 12:42 PM DEPENDENCY DIRECTOR 09/09/2019 12:50 PM DEPENDENCY DIRECTOR Lara Patrick YOUTH SUPPORT [facility] LAB - CHEMISTRY ORDERABLES Performing Organization Address [facility]/ZIP Co de Phone Number [address] [phone] * URIC ACID BLOOD (09/09/2019 12:42 PM DEPENDENCY DIRECTOR) Uric Acid 6.4 2.6 - 7.2 mg/dL 09/09/2019 1:26 PM DEPENDENCY DIRECTOR [facility] Blood BLOOD SPECIMEN / Unknown Venipuncture / Unknown 09/09/2019 12:42 PM DEPENDENCY DIRECTOR 09/09/2019 12:50 PM DEPENDENCY DIRECTOR Lara Patrick YOUTH [facility]PPORT [facility] LAB - CHEMISTRY ORDERABLES Performing Organization Address City/[facility]/ZIP Co de Phone Number [address] [phone] * PHOSPHORUS BLOOD (09/09/2019 12:42 PM DEPENDENCY DIRECTOR) Pathologist [facility] Phosphorus 3.6 2.3 - 4.7 mg/dL 09/09/2019 1:14 PM DEPENDENCY DIRECTOR [facility] Blood BLOOD SPECIMEN / Unknown Venipuncture / Unknown 09/09/2019 12:42 PM DEPENDENCY DIRECTOR 09/09/2019 12:50 PM DEPENDENCY DIRECTOR Tiffanie Nguyen YOUTH SUPPORT WORKER-MANAGER PAPER LAB - CHEMISTRY ORDERABLES Performing Organization Address [facility] de Phone Number [address] [phone] * MAGNESIUM BLOOD (09/09/2019 12:42 PM DEPENDENCY DIRECTOR) [facility] Magnesium 1.9 1.6 - 2.6 mg/dL 09/09/2019 1:14 PM DEPENDENCY DIRECTOR [facility] Blood BLOOD SPECIMEN / Unknown Venipuncture / Unknown 09/09/2019 12:42 PM DEPENDENCY DIRECTOR 09/09/2019 12:50 PM DEPENDENCY DIRECTOR Tiffanie Nguyen YOUTH SUPPORT WORKER-[facility] LAB - CHEMISTRY ORDERABLES Performing Organization Address [facility] de Phone Number [address] [phone] * VARICELLA ZOSTER ANTIBODY IGG (09/09/2019 12:41 PM DEPENDENCY DIRECTOR) [facility] Varicella zoster Virus Antibody IgG 999 Immune >165 index 09/10/2019 4:09 PM DEPENDENCY DIRECTOR [facility] ([facility]) Comment: ? Negative ?<135 ? Equivocal ?135 - 165 ? Positive ?>165 A positive result generally indicates exposure to the pathogen or administration of specific immunoglobulins, but it is not indication of active infection or stage of disease. Blood BLOOD SPECIMEN / Unknown Venipuncture / Unknown 09/09/2019 12:41 PM DEPENDENCY DIRECTOR 09/09/2019 12:51 PM DEPENDENCY DIRECTOR Narrative [facility] ([facility]) - 09/10/2019 4:09 PM DEPENDENCY DIRECTOR Performed at: ??01 - [facility] [address] [place], [place] ??[id number] Field Care Advocate: Constantino Linares PhD, Phone: ??[phone] Tiffanie Nguyen YOUTH SUPPORT WORKER-MANAGER PAPER LAB - CHEMISTRY ORDERABLES [facility] ([facility]) [address] [place] [address], [facility] * (ABNORMAL) HERPES SIMPLEX 1+2 ANTIBODY IGG/IGM PANEL (09/09/2019 12:41 PM DEPENDENCY DIRECTOR) Herpes Simplex Virus Antibody IgM I/II Combination Ratio <0.91 0.00 - 0.90 Ratio 09/11/2019 4:09 PM DEPENDENCY DIRECTOR [facility] ([facility]) Comment: ? Negative ?<0.91 ? Equivocal 0.91 - 1.09 ? Positive ?>1.09 Herpes Simplex Virus I Antibody IgG Type Specific Index 9.29(H) 0.00 - 0.90 index 09/11/2019 4:09 PM DEPENDENCY DIRECTOR [facility] ([facility]) Comment: ? Negative ?<0.91 ? Equivocal 0.91 - 1.09 ? Positive ?>1.09 Note: Negative indicates no antibodies detected to HSV-1. Equivocal may suggest early infection. ??If clinically appropriate, retest at later date. Positive indicates antibodies detected to HSV-1. Herpes Simplex Virus 2 Antibody IgG Type Specific 0.93(H) 0.00 - 0.90 index 09/11/2019 4:09 PM DEPENDENCY DIRECTOR [facility] ([facility]) Comment: A second sample should be collected and tested no less than 2-4 weeks. ? Negative ?<0.91 ? Equivocal 0.91 - 1.09 ? Positive ?>1.09 Note: Negative indicates no antibodies detected to HSV-2. Equivocal may suggest early infection. ??If clinically appropriate, retest at later date. Positive indicates antibodies detected to HSV-2. Blood BLOOD SPECIMEN / Unknown Venipuncture / Unknown 09/09/2019 12:41 PM DEPENDENCY DIRECTOR 09/09/2019 12:51 PM DEPENDENCY DIRECTOR Narrative [facility] ([facility]) - 09/11/2019 4:09 PM DEPENDENCY DIRECTOR Performed at: ??01 - [facility] [address] [place], [place] ??[id number] Field Care Advocate: Constantino Linares PhD, Phone: ??[phone] Tiffanie Nguyen YOUTH SUPPORT WORKER-MANAGER PAPER LAB - CHEMISTRY ORDERABLES [facility] ([facility]) [address] [place] [address] * CYTOMEGALOVIRUS ANTIBODY IGM BLOOD (09/09/2019 12:41 PM DEPENDENCY DIRECTOR) Pathologist [facility] Cytomegalovirus Antibody IgM <30.0 0.0 - 29.9 AU/mL 09/11/2019 8:18 AM DEPENDENCY DIRECTOR [facility] ([facility]) Comment: ?Negative ? <30.0 ?Equivocal ??30.0 - 34.9 ?Positive ? >34.9 A positive result is generally indicative of acute infection, reactivation or persistent IgM production. Blood BLOOD SPECIMEN / Unknown Venipuncture / Unknown 09/09/2019 12:41 PM DEPENDENCY DIRECTOR 09/09/2019 12:51 PM DEPENDENCY DIRECTOR Narrative [facility] ([facility]) - 09/11/2019 8:18 AM DEPENDENCY DIRECTOR Performed at: ??01 - [facility] [address] [place], [place] ??[id number] Field Care Advocate: Constantino Linares PhD, Phone: ??[phone] Tiffanie Nguyen YOUTH SUPPORT WORKER-MANAGER PAPER LAB - CHEMISTRY ORDERABLES [facility] ([facility]) [address] [place] [address] * (ABNORMAL) CYTOMEGALOVIRUS ANTIBODY IGG BLOOD (09/09/2019 12:41 PM DEPENDENCY DIRECTOR) Pathologist [facility] Cytomegalovirus Antibody IgG 2.00(H) 0.00 - 0.59 U/mL 09/11/2019 8:18 AM DEPENDENCY DIRECTOR [facility] ([facility]) Comment: ? Negative ?<0.60 ? Equivocal ?? 0.60 - 0.69 ? Positive ?>0.69 Blood BLOOD SPECIMEN / Unknown Venipuncture / Unknown 09/09/2019 12:41 PM DEPENDENCY DIRECTOR 09/09/2019 12:51 PM DEPENDENCY DIRECTOR Narrative [facility] ([facility]) - 09/11/2019 8:18 AM DEPENDENCY DIRECTOR Performed at: ??01 - [facility] [address] [place], [place] ??[id number] Field Care Advocate: Constantino Linares PhD, Phone: ??[phone] Lara Patrick YOUTH SUPPORT WORKER-MANAGER PAPER LAB - CHEMISTRY ORDERABLES Performing Organization Address [facility] Co de Phone Number [facility] ([facility]) [address] [place] [address] * HEPATITIS B CORE ANTIBODY (09/09/2019 12:41 PM DEPENDENCY DIRECTOR) HBc Antibody Total Non-reacti ve Non-reacti ve 09/09/2019 2:21 PM DEPENDENCY DIRECTOR [facility] Blood BLOOD SPECIMEN / Unknown Venipuncture / Unknown 09/09/2019 12:41 PM DEPENDENCY DIRECTOR 09/09/2019 12:51 PM DEPENDENCY DIRECTOR Tiffanie Alvess YOUTH SUPPORT WORKER-MANAGER PAPER LAB - CHEMISTRY ORDERABLES Performing Organization Address City/[facility]/ZIP Co de Phone Number [address] [phone] * HEPATITIS B SURFACE ANTIGEN W RFLX CONFIRMATION (09/09/2019 12:41 PM DEPENDENCY DIRECTOR) Hepatitis B Virus Surface Antigen Non-reacti ve Non-reacti ve 09/09/2019 1:48 PM DEPENDENCY DIRECTOR [facility] Blood BLOOD SPECIMEN / Unknown Venipuncture / Unknown 09/09/2019 12:41 PM DEPENDENCY DIRECTOR 09/09/2019 12:51 PM DEPENDENCY DIRECTOR Tiffanie Nguyen YOUTH SUPPORT WORKER-MANAGER PAPER LAB - CHEMISTRY ORDERABLES [address] [phone] * (ABNORMAL) IGM BLOOD (09/09/2019 12:41 PM DEPENDENCY DIRECTOR) IgM 19(L) 22 - 293 mg/dL 09/09/2019 1:46 PM DEPENDENCY DIRECTOR [facility] Blood BLOOD SPECIMEN / Unknown Venipuncture / Unknown 09/09/2019 12:41 PM DEPENDENCY DIRECTOR 09/09/2019 12:51 PM DEPENDENCY DIRECTOR Tiffanie Nguyen YOUTH SUPPORT WORKER-MANAGER PAPER LAB - CHEMISTRY ORDERABLES Performing Organization Address City/[facility]/ZIP Co de Phone Number [address] [phone] * IGG BLOOD (09/09/2019 12:41 PM DEPENDENCY DIRECTOR) IgG 620 540-1,822 mg/dL 09/09/2019 1:46 PM DEPENDENCY DIRECTOR [facility] Blood BLOOD SPECIMEN / Unknown Venipuncture / Unknown 09/09/2019 12:41 PM DEPENDENCY DIRECTOR 09/09/2019 12:51 PM DEPENDENCY DIRECTOR Tiffanie Nguyen YOUTH SUPPORT WORKER-MANAGER PAPER LAB - CHEMISTRY ORDERABLES [address] [phone] * IGA BLOOD (09/09/2019 12:41 PM DEPENDENCY DIRECTOR) IgA 92 87 - 534 mg/dL 09/09/2019 1:46 PM DEPENDENCY DIRECTOR [facility] Blood BLOOD SPECIMEN / Unknown Venipuncture / Unknown 09/09/2019 12:41 PM DEPENDENCY DIRECTOR 09/09/2019 12:51 PM DEPENDENCY DIRECTOR Tiffanie Nguyen YOUTH SUPPORT WORKER-MANAGER PAPER LAB - CHEMISTRY ORDERABLES [facility] [address] [place] [address], [facility] [phone] documented in this encounter Visit Diagnoses Diagnosis Pre-transplant evaluation for stem cell transplant- Primary documented in this encounter Care Teams Dinkey Engine Mechanic Relationship Specialty Start Date End Date Ran Nuñez MD [address] [place] [address] PCP - General Family Medicine 03/22/19 12/22/20 Hillary Apple MD [address] [place] [address] Hematology and Oncology 03/17/19 Bill Ferrera MD [address] [place] [address] Hematology and Oncology 03/17/19 08/27/21 Tony Dumont MD [address] [place] [address] Hematology and Oncology 03/17/19 Shalini Segal MD [address] [place] [address] Hematology and Oncology 03/17/19 09/29/19 Karie Jones, ROSEMARY Registered Nurse 03/17/19 09/21/19 Maryjo Reinoso LCSW Funeral Assistant 03/17/19 Madyson Clay, PharmD 03/17/19 Dana Lala APRN-GENERAL PEDIATRICIAN [address] [place] [address] [address] [place] [address] Oncology 03/17/19 Tiffanie Nguyen APRN-MANAGER PAPER [address] [place] [address] [address] [place] [address] Family Medicine 03/17/19 Stephanie Mahoney, RN Registered Nurse 03/17/19 10/29/21 Alycia Galvan, RN 03/17/19 10/29/21 Cesar Tavares MD [address] [place] [address] Referring Physician Medical Oncology 03/23/19 Karie Jones, RN Registered Nurse 06/08/19 10/29/21 documented as of this encounter
--- OUTSIDE RECORDS SUMMARY | 2024-08-18 00:33 | XMS_ITS | Encounter Summary ---
Author Organization [facility] Address [address] [place] [address] Care Team Providers Care Inventory Technician Name Role Phone Hillary Apple MD Unavailable [phone] Bill Ferrera MD Unavailable [phone] Tony Dumont MD Unavailable Shalini Segal MD Unavailable [phone] Karie Jones RN Unavailable Unavailable Maryjo Reinoso LCSW Unavailable Unavailable Madyson Clay PharmD Unavailable Unavaila Dana Galicia BLAST FURNACE KEEPER HELPER-PATCH SETTER Unavailable [phone] Mckinley Silver-C Unavailable Unavail able PatrickTiffanie BLAST FURNACE KEEPER HELPER-AIRCRAFT MAINTENANCE MANAGER Unavailable [phone] Stephanie Mahoney RN Unavailable Unavailable Alycia Galvan RN Unavailable UnavailRan Mejía MD Primary Care Provider Cesar Tavares MD Unavailable [phone] Karie Jones RN Unavailable Unavailable Reason for Visit * Reason Comments Post-Op [id number] Encounter Details Date Type Department Care Team (Late st Contact Info) Description 08/26/2019 12:00 PM POOL NURSE Office Visit [facility] [address] [place] [address] Chloe Kent MD [address] [facility] [place] [address] S/P splenectomy (Primary Dx) Social History Tobacco Use Types [...] Sign Reading Time Taken Comments Blood Pressure 116/90 08/26/2019 12:03 PM POOL NURSE Pulse 88 08/26/2019 12:03 PM POOL NURSE Temperature 36.8 ??C (98.3 ??F) 08/26/2019 12:[address] Respiratory Rate - - Oxygen Saturation 97% 08/26/2019 12:03 PM POOL NURSE Inhaled Oxygen Concentration - - Weight 117.5 kg (259 lb) 08/26/2019 12:03 PM POOL NURSE Height 171.5 cm (5' 7.5 ) 08/26/2019 12:03 PM CS T Body Mass Index 39.97 08/26/2019 12:03 PM POOL NURSE documented in this encounter Functional Status Functional [...] as of this encounter Progress Notes * Asim Barron - 08/26/2019 12:37 PM CST Splenectomy Follow Up Chief Complaint: s/p laparoscopic splenectomy x 9 days History of Present Illness: Mr. Marcello Guillen is a 49-year-old with history of non-Hodgkin's lymphoma that was treated with R-CHOP in 2018. Patient underwent surveillance and in 02/2019, he presented with LUQ pain and recurrence was discovered. Patient was then started on Bendamustine and Gazvya. He is currently being evaluated for bone marrow transplant. During transplant, patient is required to have G-CSF administration, which increases the risk of splenic rupture. He was then referred to Dr. Kent for splenectomy. He presented to [facility] on 08/17/2019 for laparoscopic splenectomy. Pathology impression found congestion with prominent red pulp sinuses and negative for malignancies. Today is here for his clinic post-op follow up. Patient is overall doing well. He states he is tolerating the pain as long as he does not overexert his movements. He denies nausea, vomiting, change in urination/BM, fever, chills, night sweats, cough, fever, SOB, and burning pain/swelling near his incision site. He is seeing [facility] BMT clinicafter this visit. PMHX : Past Medical History: Diagnosis Date ??? Diverticulosis ??? GERD (gastroesophageal reflux disease) taking prevacid prn ??? H/O echocardiogram 08/11/2019 ??? Lymphoma of lymph nodes ??? Multiple body piercings facial ??? Port-A-Cath in place right subclavian ??? Sleep apnea not using CPAP ??? Transient alteration of awareness 2018 during knee arthroplasty(single incident) PSH: Past Surgical History: Procedure Laterality Date ??? ACL RECONSTRUCTION ??? BONE MARROW BIOPSY ??? COLONOSCOPY WITH POLYPECTOMY ??? Knee Arthroscopy Right 2018 with hardware ??? Splenectomy N/A 08/17/2019 N/A; LAPAROSCOPIC SPLENECTOMY POSS OPEN ??? Tonsillectomy ??? VENOUS ACCESS DEVICE (PORT OR CATHETER) Right 2019 subclavian Review of Systems: General: negative Eyes: negative ENT: negative Cardiovascular: negative Respiratory: negative GI: negative : negative Neurologic: negative Endocrine: negative Allergy/Immunology: negative Heme/Lymph: negative Musculoskeletal: negative Skin: negative All other systems reviewed and were negative. Medications & Allergies: Current Outpatient Medications Medication Sig Dispense Refill ??? acetaminophen (TYLENOL) 325 MG tablet Take 2 tablets by mouth every 6 hours as needed for Feveror Pain Maximum allowable Acetaminophen amount = 4 Grams (4000 mg) / 24 hours. ??? acyclovir (ZOVIRAX) 400 MG tablet Take 1 tablet by mouth 2 times daily 60 tablet 11 ??? allopurinol (ZYLOPRIM) 300 MG tablet Take 300 mg by mouth once daily ??? BABY ASPIRIN PO Take 81 [...] 1 tablet by mouth every 6 hours ??? Lansoprazole (PREVACID PO) Take by mouth [...] needed for Pain 30 tablet 0 ??? penicillin v potassium [...] by mouth every 6 hours as needed No current facility-administered medications for this visit. Facility-Administered Medications Ordered in Other Visits Medication Dose Route Frequency Provider Last Rate Last Dose ??? heparin lock flush injection 500 Units 500 Units Intracatheter Tiffanie Christian APRN-CNP Adhesive sensitivity Social History Socioeconomic History ??? Marital status: Single Spouse name: Not on file ??? Number of children: Not on file ??? Years of education: Not on file ??? Highest education level: Not on file Occupational History ??? Not on file Social Needs ??? Financial resource strain: Not on file ??? Food insecurity: Worry: Not on file Inability: Not on file ??? Transportation needs: Medical: Not on file Non-medical: Not on file Tobacco Use ??? Smoking status: Former Smoker Packs/day: 0.50 Types: Cigarettes Start date: 1983 Last attempt to quit: 2001 Years since quittin.0 ??? Smokeless tobacco: Former User Types: Chew Quit date: 2016 Substance and Sexual Activity ??? Alcohol use: Not Currently ??? Drug use: Yes Frequency: 21.0 times per week Types: Marijuana ??? Sexual activity: Not on file Lifestyle ??? Physical activity: Days per week: Not on file Minutes per session: Not on file ??? Stress: Not on file Relationships ??? Social connections: Talks on phone: Not on file Gets together: Not on file Attends gnosticist service: Not on file Active member of club or organization: Not on file Attends meetings of clubs or organizations: Not on file Relationship status: Not on file ??? Intimate partner violence: Fear of current or ex partner: Not on file Emotionally abused: Not on file Physically abused: Not on file Forced sexual activity: Not on file Other Topics Concern ??? Not on file Social History Narrative ??? Not on file Physical Examination: BP 116/90 Pulse 88 Temp 98.3 ??F (36.8 ??C) (Oral) Ht 5' 7.5 (1.715 m) Wt 259 lb (117.5 kg) SpO2 97% BMI 39.97 kg/m2 General- no acute distress, appears comfortable, affect appropriate, engaging HEENT- Mucus membranes moist and acyanotic, EOMi, PERRLA, sclera non icteric LYMPH- No supraclavicular or inguinal lymphadenopathy RESP- non labored respirations, clear lung sounds with no crackles, rales, or rhonchi CVS- RRR, no abnormal heart sounds such as murmurs, gallops, or clicks GI- Soft, NT/ND, incision sites healing with no purulent discharge, erythema, and swelling Extremities- warm, well perfused, equal in size BL Recent Labs Component Name 08/19/19 0542 08/18/19 0555 08/11/19 1116 WBC 8.8 10.6* 2.3* HGB 12.1* 11.7* 11.6* HCT 34.7* 33.3* 33.6* PLTCOUNT 161 98* 60* Recent Labs Component Name 08/19/19 0542 08/18/19 0555 07/26/19 1248 NA 143 141 140 POTASSIUM 3.7 4.0 4.3 CL 108* 107 108* CO2 26 22 23 BUN 10 9 12 CREATININE 1.0 0.9 1.0 GLU 89 100 97 Recent Labs Component Name 08/19/19 0542 08/18/19 0555 07/26/19 1248 CALCIUM 9.2 8.8 9.1 MAGNESIUM 1.7 1.7 1.8 PHOS 2.0* 3.1 3.2 Recent Labs Component Name 08/19/19 0542 08/18/19 0555 07/26/19 1248 06/28/19 1351 CALCIUM 9.2 8.8 9.1 9.4 ALB 3.6 3.5 4.0 4.2 PROT 5.7* 5.4* 6.0 6.0 TBILI 0.4 0.4 0.4 0.4 ALKPHOS 68 65 74 63 ALT 35 40 68* 31 AST 29 31 31 19 Pathology Impression Spleen, resection: - Congestion with prominent red pulp sinuses. - Negative for malignancy. Assessment/Plan: Mr. Marcello Guillen is a 49-year-old male with hx of non-Hodgkin's lymphoma that was treated with R-CHOP in 2018 and bendamustine/Gazvya for his recurrence in 2019. Patient was referred to Dr. Kent fora risk of splenic rupture during a bone marrow transplant. He is here for a 9 day post op s/p laparoscopic splenectomy follow up. He is overall doing well today - advised to not lift anything heavier than a gallon of milk or approximately 10lbs for 6 weeks. Educated on possibly opening his wounds and potential hernias if overexertion was done - he can start peeling off Dermabond glue on his incision sites - f/u with Dr. Kent's clinic PRN and f/u with [facility] BMT/Oncology Asim Barron 08/26/2019 12:38 PM I??have verified the documentation of the medical student/PA student including all history, exam, and medical decision-making details.?? I have personally performed a physical exam and have personally reviewed the data to support my medical decision-making as outlined in the medical student???s note, and I arrive independently at the same conclusion. Patient recovering well from surgery. Wound care instructions reiterated. Has followup with Dr. Apple today. No further f/u needed in surgical oncology clinic, f/u with me prn. Chloe Kent MD 08/26/2019 2:07 PM NURSE documented in this encounter Plan of Treatment Upcoming Encounters Date Type Department Care Team (Late st Contact Info) Description 08/26/2024 11:00 AM POOL NURSE Office Visit [facility] - Pulmonology [address] [place] [address], [place] [phone] Andrew Francis MD [address] [place] [address] [address] DIV OF PULMONARY/[place] [address] documented as of this encounter Visit Diagnoses Diagnosis S/P splenectomy- Primary Other acquired absence of organ documented in this encounter Care Teams Inventory Technician Relationship Specialty Start Date End Date Ran Nuñez MD [address] [place] [address] PCP - General Family Medicine 03/22/19 12/22/20 Hillayr Apple MD [address] [place] [address] Hematology and Oncology 03/17/19 Bill Ferrera MD [address] [place] [address] Hematology and Oncology 03/17/19 08/27/21 Tony Dumont MD [facility] [place] [address] Hematology and Oncology 03/17/19 Shalini Segal MD [address] [place] [address] Hematology and Oncology 03/17/19 09/29/19 Karie Jones, RN Registered Nurse 03/17/19 09/21/19 Maryjo Reinoso, REYNA Crab Steamer 03/17/19 Madyson Clay, PharmD 03/17/19 Dana Lala BLAST FURNACE KEEPER HELPER-PATCH SETTER [address] [place] [address] Oncology 03/17/19 Mckinley Silver PA-C [address] [facility] [address] [place] [address] Physician Human Resources Operations Specialist 03/17/19 09/08/19 Tiffanie Nguyen, BLAST FURNACE KEEPER HELPER-AIRCRAFT MAINTENANCE MANAGER [address] [facility] [address] [place] [address] Family Medicine 03/17/19 Stephanie Mahoney, RN Registered Nurse 03/17/19 10/29/21 Alycia Galvan, ROSEMARY 03/17/19 10/29/21 Cesar Tavares MD [address] [place] [phone] Referring Physician Medical Oncology 03/23/19 Karie Jones, RN Registered Nurse 06/08/19 10/29/21 documented as of this encounter
--- OUTSIDE RECORDS SUMMARY | 2024-08-18 00:33 | XMS_ITS | Encounter Summary ---
Author Organization [facility] Address [address] [facility] [place] [address] Care Team Providers Care Progressive Die Maker Name Role Phone Hillary Apple MD Unavailable [phone] Bill Ferrera MD Unavailable [phone] Tony Dumont MD Unavailable [phone] Shalini Segal MD Unavailable [phone] Karie Jones RN Unavailable Unavailable Maryjo ReinosoW Unavailable Unavailable Madyson Clay PharmD Unavailable Unavaila Dana Galicia RESEARCH AND DEVELOPMENT TESTER-PRODUCT EVANGELIST Unavailable [phone] Tiffanie Nguyen RESEARCH AND DEVELOPMENT TESTER-STUNT WOMAN Unavailable [phone] Stephanie Mahoney RN Unavailable Unavailable Alycia Galvan RN Unavailable UnavailRan Mejía MD Primary Care Provider Cesar Tavares MD Unavailable [phone] Karie Jones RN Unavailable Unavailable Encounter Details Date Type Department Care Team (Late st Contact Info) Description 09/09/2019 Orders Only [facility] CLINIC [address] [place] [address] Tiffanie Nguyen APRN-STUNT WOMAN [address] [place] [address] Pre-transplant evaluation for stem cell transplant Social [...] st Contact Info) Description 08/26/2024 11:00 AM HEALTH CARE LIAISON Office Visit [facility] - Pulmonology [address] [place] [address], [place] [id number] Andrew Francis MD [address] [place] [address] 2L DIV OF PULMONARY/[place] [address] documented as of this encounter Visit Diagnoses Diagnosis Pre-transplant evaluation for stem cell transplant- Primary documented in this encounter Care Teams Progressive Die Maker Relationship Specialty Start Date End Date Ran Nuñez MD [address] [place] [id number] PCP - General Family Medicine 03/22/19 12/22/20 Hillary Apple MD [address] [place] [address] Hematology and Oncology 03/17/19 Bill Ferrera MD [address] [place] [address] Hematology and Oncology 03/17/19 08/27/21 Tony Dumont MD [address] [place] [address] Hematology and Oncology 03/17/19 Shalini Segal MD [address] [place] [address] Hematology and Oncology 03/17/19 09/29/19 Karie Jones, RN Registered Nurse 03/17/19 09/21/19 Maryjo Reinoso, FURNACE REPAIRER Stone And Concrete Washer 03/17/19 Madyson Clay, PharmD 03/17/19 Dana Lala, RESEARCH AND DEVELOPMENT TESTER-PRODUCT EVANGELIST [address] [place] [address] 2nd [place] [address] Oncology 03/17/19 Tiffanie Nguyen, RESEARCH AND DEVELOPMENT TESTER-STUNT WOMAN [address] [place] [address] 2nd [place] [address] Family Medicine 03/17/19 Stephanie Mahoney, RN Registered Nurse 03/17/19 10/29/21 Alycia Galvan, ROSEMARY 03/17/19 10/29/21 Cesar Tavares MD [address] [place] [address] Referring Physician Medical Oncology 03/23/19 Karie Jones, RN Registered Nurse 06/08/19 10/29/21 documented as of this encounter
--- OUTSIDE RECORDS SUMMARY | 2024-08-18 00:33 | XMS_ITS | Encounter Summary ---
Author Organization [facility] Address [address] [place] [address] Care Team Providers Care Feller Machine Operator Name Role Phone Hillary Apple MD Unavailable [phone] Bill Ferrera MD Unavailable [phone] Tony Dumont MD Unavailable [phone] Shalini Segal MD Unavailable [phone] Karie Jones RN Unavailable Unavailable Maryjo ReinosoW Unavailable Unavailable Madyson Clay PharmD Unavailable Unavaila Dana Galicia ENGINEER/CONDUCTOR-MECHANICAL INTEGRITY SPECIALIST Unavailable [phone] Mckinley Silver-C Unavailable Unavail able Patrick, Tiffanie [place] ENGINEER/CONDUCTOR-GENETIC ENGINEER Unavailable [phone] Stephanie Mahoney RN Unavailable Unavailable Alycia Galvan RN Unavailable UnavailRan Mejía MD Primary Care Provider Cesar Tavares MD Unavailable [phone] Karie Jones RN Unavailable Unavailable Encounter Details Date Type Department Care Team (Late st Contact Info) Description 09/08/2019 Telephone [facility] BMT CLINIC [address] [place] [address] Stephanie Mahoney, RN Social History Tobacco Use Types Packs/Day [...] Telephone Encounter - Stephanie Mahoney RN - 09/08/2019 10:42 AM AUDIOVISUAL PRODUCTION SPECIALIST Patient on Lovenox and Aspirin. Patient reminded to hold both medications tomorrow. Patient does want pain and anxiety medication for procedure. 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 documented in this encounter Plan of Treatment Upcoming Encounters Date Type Department Care Team (Late st Contact Info) Description 08/26/2024 11:00 AM AUDIOVISUAL PRODUCTION SPECIALIST Office Visit [facility] - Pulmonology [address] [place] [address], [place] [address] Andrew Francis MD [address] [place] [address] 2L DIV OF PULMONARY/[place] [address] documented as of this encounter Visit Diagnoses Not on filedocumented in this encounter Care Teams Feller Machine Operator Relationship Specialty Start Date End Date Ran Nuñez MD [address] [place] [address] PCP - General Family Medicine 03/22/19 12/22/20 Hillary Apple MD [address] [place] [address] Hematology and Oncology 03/17/19 Bill Ferrera MD [address] [place] [address] Hematology and Oncology 03/17/19 08/27/21 Tony Dumont MD [address] [place] [address] Hematology and Oncology 03/17/19 Shalini Segal MD [address] [place] [address] Hematology and Oncology 03/17/19 09/29/19 Karie Jones, ROSEMARY Registered Nurse 03/17/19 09/21/19 Maryjo Reinoso, FIRE MANAGEMENT OFFICER Steel Engraver 03/17/19 Madyson Clay, PharmD 03/17/19 Dana Lala, ENGINEER/CONDUCTOR-MECHANICAL INTEGRITY SPECIALIST [address] [place] [address] [address]nd [place] [address] Oncology 03/17/19 Mckinley Silver PA-C [address] [place] [address] [address] [place] [address] Physician Dental Officer 03/17/19 09/08/19 Tiffanie Nguyen, ENGINEER/CONDUCTOR-GENETIC ENGINEER [address] [place] [address] [address] [place] [address] Family Medicine 03/17/19 Stephanie Mahoney, RN Registered Nurse 03/17/19 10/29/21 Alycia Galvan, ROSEMARY 03/17/19 10/29/21 Cesar Tavares MD [address] [place] [address] Referring Physician Medical Oncology 03/23/19 Karie Jones, RN Registered Nurse 06/08/19 10/29/21 documented as of this encounter
--- OUTSIDE RECORDS SUMMARY | 2024-08-18 00:33 | XMS_ITS | Encounter Summary ---
Author Organization [facility] Address [address] [place] [address] Care Team Providers Care Patient Accounts Coordinator Name Role Phone Hillary Apple MD Unavailable [phone] Bill Ferrera MD Unavailable [phone] Tony Dumont MD Unavailable [phone] Shalini Segal MD Unavailable [phone] Karie Jones RN Unavailable Unavailable Maryjo Reinoso LCSW Unavailable Unavailable Madyson Clay PharmD Unavailable Unavaila Dana Galicia MUCKER OPERATOR-STAFFING ANALYST Unavailable [phone] Mckinley Silver-C Unavailable Unavail able PatrickTiffanie MUCKER OPERATOR-CONSTRUCTION MANAGEMENT ASSISTANT Unavailable [phone] Stephanie Mahoney RN Unavailable Unavailable Alycia Galvan RN Unavailable UnavailRan Mejía MD Primary Care Provider Cesar Tavares MD Unavailable [phone] Karie Jones RN Unavailable Unavailable Reason for Visit * Auth/Cert Specialty Diagnoses / Procedures Referred By Deng meraz Referred To Contact Diagnoses Non-Hodgkin's lymphoma of spleen, 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 Procedures LAPAROSCOPIC SPLENECTOMY Referral ID Status Reason Start Date Expiration Date Visits Re quested Visits Authorized [id number] 1 1 Encounter Details Date Type Department Care Team (Late st Contact Info) Description 08/17/2019 7:30 AM GINSENG FARMER - 08/17/2019 10:35 AM GINSENG FARMER Surgery [facility] [address] [place] [address] Chloe Kent MD [address] [facility] [address] [facility] [place] [address] LAPAROSCOPIC SPLENECTOMY POSS OPEN Surgery Details Date/Time Status Location OR Service Patient Class Case Class Case Type Trauma Case? 08/17/2019 7:30 AM Posted [facility] OR OR 15 General Reinforcement Maker Admit Surgical Panel 1 Procedure LRB Anes Op Region Wound Class Comments LAPAROSCOPIC SPLENECTOMY POSS OPEN N/A General Abdom en Clean Surgeon Surgeon Role Service Panel Chloe Kent MD Primary General 1 Christina Patel MD Resident - Assisting General 1 Special Needs Supine documented in this encounter Social History Tobacco [...] Sign Reading Time Taken Comments Blood Pressure 125/82 08/17/2019 6:25 AM GINSENG FARMER Pulse 77 08/17/2019 6:25 AM GINSENG FARMER Temperature 36.9 ??C (98.4 ??F) 08/17/2019 6:25 AM CS T Respiratory Rate 12 08/17/2019 6:25 AM GINSENG FARMER Oxygen Saturation 94% 08/17/2019 6:25 AM GINSENG FARMER Inhaled Oxygen Concentration - - Weight 120.7 kg (266 lb) 08/17/2019 6:25 AM GINSENG FARMER Height 171.5 cm (5' 7.5 ) 08/17/2019 6:25 AM GINSENG FARMER Body Mass Index 41.05 08/17/2019 6:25 AM GINSENG FARMER documented in this encounter Functional Status Functional [...] 08/19/2019 documented as of this encounter Discharge Summaries * Marcello Shannon MD - 08/19/2019 3:46 PM CST Physician Discharge Summary Marcello Luis [id number] 49 year old 1970 Admit date: 08/17/2019 Discharge date and time: 08/19/2019 Admitting Physician: Chloe Kent MD Discharge Physician: Chloe Kent MD Admission Condition: stable Discharged Condition: stable Indication for Admission: non-Hodgkin's lymphoma s/p laparoscopic splenectomy Hospital Course: Mr. Marcello Luis is a 49-year-old male with hx of non-Hodgkin???s lymphoma treated with R-CHOP [id number] who presented to [facility] on 08/17/2019 for laparoscopic splenectomy. Patient underwent surveillance and in 02/2019 he presented with LUQ pain again and recurrence was found. He was then started on bendamustine and Gazvya. Also currently being evaluated for bone marrow transplant. Patient needed G-CSF administration during bone marrow transplant and increased the risk of splenic rupture. He was referred to general surgery for splenectomy. Consent was obtained the same day and procedure performed was a laparoscopic splenectomy. Patient was admitted to the floor from PACU for post-operative car e. 08/18/2019, patient was administered splenectomy vaccines, advised to continue home acyclovir, and to continue home penicillin for total 7-day course. All milestones met by post-op day 1. Patient discharged home Consults: None Discharge Exam: Constitutional: NAD Respiratory: unlabored on RA Cardiovascular: RRR GI: soft, ND, diffusely TTP but appropriately, incision sites c/d/i Neurological: awake and alert Psychiatric: responding appropriately Disposition: discharge home Patient Instructions: Medication List START taking these medications acetaminophen 325 MG tablet Commonly known as: TYLENOL Take 2 tablets by mouth every 6 hours as needed for Fever or Pain Maximum allowable Acetaminophen amount = 4 Grams (4000 mg) / 24 hours. docusate sodium 100 MG capsule Commonly known as: COLACE Take 1 capsule by mouth 2 times daily enoxaparin injection Commonly known as: LOVENOX Inject 40 mg subcutaneously once daily ibuprofen 600 MG tablet Commonly known as: MOTRIN Take 1 tablet by mouth every 6 hours oxyCODONE (immediate release) 5 MG tablet Commonly known as: ROXICODONE Take 1 tablet by mouth every 4 hours as needed for Pain CHANGE how you take these medications penicillin v potassium 250 MG tablet Commonly known as: VEETIDS Take 1 tablet by mouth 2 times daily What changed: additional instructions CONTINUE taking these medications acyclovir 400 MG tablet Commonly known as: ZOVIRAX Take 1 tablet by mouth 2 times daily allopurinol 300 MG tablet Commonly known as: ZYLOPRIM BABY ASPIRIN PO diclofenac sodium EC 75 MG tablet Commonly known as: VOLTAREN escitalopram 10 MG tablet Commonly known as: LEXAPRO Take 1 tablet by mouth once daily lidocaine-prilocaine 2.5-2.5 % cream Commonly known as: EMLA MIRALAX packet Generic drug: polyethylene glycol 3350 ondansetron (disintegrating) 8 MG tablet Commonly known as: ZOFRAN ODT PREVACID PO prochlorperazine 10 MG tablet Commonly known as: COMPAZINE STOP taking these medications HYDROcodone-acetaminophen 5-325 MG tablet Commonly known as: NORCO Where to Get Your Medications These medications were sent to [id number] - [id number] [id number] [address] [facility] [address] [address] [facility] [id number] ?? docusate sodium 100 MG capsule ?? enoxaparin injection You can get these medications from any pharmacy Bring a paper prescription for each of these medications ?? oxyCODONE (immediate release) 5 MG tablet You don't need a prescription for these medications ?? acetaminophen 325 MG tablet Information about where to get these medications is not yet available Ask your nurse or doctor about these medications ?? ibuprofen 600 MG tablet Follow-up Information Ran Nuñez MD . Specialty: Family Medicine Why: call to schedule a follow up appointment with your primary care provider Contact information: [address] [place] [address] Chloe Kent MD . Specialties: General Surgery, Surgical Oncology Why: Your follow up appointment with surgeon is 08/26 in the [facility]. Please arrive early to have your labwork drawn before appointment Contact information: [address] [facility] [address] [facility] [address] . Specialty: Laboratory Why: Please arrive early to have your labwork drawn before appointment with surgeon Contact information: [address] [facility] [address] Discharge Instructions None Signed: Asim Barron 08/19/2019 I have independently seen the patient and completed a physical exam. I have reviewed the patient's labs and imaging. I have reviewed the assessment and plan with the medical student. Edits have been made where indicated. Marcello Shannon MD August 19, 2019 5:32 PM ENG FARMER documented in this encounter Medications at Time [...] times daily 60 tablet 11 05/24/2019 11/10/2019 allopurinol (ZYLOPRIM) 300 MG tablet Take 300 mg by mouth once daily 04/19/2019 09/09/2019 BABY ASPIRIN PO Take 81 mg by [...] as of this encounter Progress Notes * Eleno Parra RN - 08/19/2019 3:33 PM CST Discharge instructions and prescriptions given to patient. Patient denies questions. IV discontinued without complications. Patient escorted out via wheelchair. ENG FARMER * Onelia Phipps V - 08/19/2019 3:23 AM CST Problem: Pain/Discomfort Goal: Patient exhibits reduced pain/discomfort as evidenced by pain scores Outcome: Ongoing Patient's pain is managed with scheduled pain medication. He has not requested any additional PRN pain medication but was provided information and encouraged to report pain to nurse. Patient verbalized understanding. ENG FARMER * Vania Crane OT - 08/18/2019 3:43 PM CST [facility] Physical Medicine and Rehabilitation Occupational Therapy Initial Evaluation Note Patient: Marcello Luis [facility] Record Number: [id number] Date of : 1970 Age: [age] year old Discharge Recommendation: Patient should be able to return home when functionally able (see currentamount of assist needed below). Frequency: D/c OT. Patient is independent with functional mobility and ADL, and is at functional cognitive baseline. No further OT indicated. Plan: ADL training Functional transfer training Bed mobility Safety awareness Physician Orders: Evaluation and Treat DIAGNOSIS: Patient Active Problem List: DLBCL (diffuse large B cell lymphoma) B-cell lymphoma Lymphadenopathy History of marijuana use Past Medical History: Diagnosis Date ??? Diverticulosis ??? GERD (gastroesophageal reflux disease) taking prevacid prn ??? H/O echocardiogram 08/11/2019 ??? Lymphoma of lymph nodes ??? Multiple body piercings facial ??? Port-A-Cath in place right subclavian ??? Sleep apnea not using CPAP ??? Transient alteration of awareness 2018 during knee arthroplasty(single incident) SUBJECTIVE: I got up and walked to the bathroom once already PATIENT GOALS: Patient identifies goal of returning home Home living: Type of Residence: Private Residence Lives with:: (sister and fiance) Steps to Enter: 2(1 flight to basement to bedroom with rail) Ramp: No Handrails: Outdoor Home Structure: One Story;Basement Primary Bedroom: Basement Primary Bathroom: First Floor Equipment At Home: Crutches-Standard;Walker-2 Wheeled Prior Function: Mobility: Ambulate-In Community;Independent;Without Assistive Device;Driving Fallen Within 6 Mos: No Have Help at Home?: Yes, there is help at home now How often is assistance provided?: (as needed) Level of Help Sufficient?: Yes Oxygen at Home: No Activity at Home: Active Who manages medications?: self At start of therapy session, patient found in bed and with no alarm. Pain: Patient has unrated pain in abdomen/incision Follow-up for pain: No follow-up for pain indicated and patient agreed to proceed with treatment OBJECTIVE: General Appearance: Patient is a 49 year old male who presents resting supine in bed, inNAD Precautions: IV's: Peripheral line Edema: BUE WFL Vital Signs: no s/s of distress on room air throughout session Pre-activity BP: HR: SpO2: Room Air L O2 Peak activity BP: HR: SpO2: Room Air L O2 Post cool down BP: HR: SpO2: Room Air L O2 Cognitive: Alert and oriented x 4, follows multi step commands 100%, good safety awareness, insight. Perceptual: No perceptual deficits noted Upper extremity range of motion: BUE AROM WFL Upper extremity strength: BUE grossly WFL, pole river strength intact bilaterally Tone: No abnormal tone noted Coordination: Serial opposition intact to BUE Sensation: Light touch intact to BUE Patient's activity tolerance: fair plus Comments: FUNCTIONAL MOBILITY Not tested Independent Stand by Assist Minimal Moderate Maximum Dependent Rolling x Supine to/from sit x Sit to/from Standing x Bed to/from chair x Functional mobility: ambulation of functional household distance, independently and with no device. Balance: Static Sitting: good Dynamic Sitting: good Static Standing: good Dynamic Standing: good Activities of Daily Living Feeding: not tested Grooming/Bathing: not tested, hand to face intact bilaterally Upper Extremity Dressing: Independently don/doff gown over back. Lower Extremity Dressing: SBA don/doff bilateral socks 2/2 pain. Patient reports significant other is available PRN for assistance with socks/shoes. Toileting/Transfers: not tested. Simulated pericare independently TREATMENT / EDUCATION / EVALUATION: Purpose of Occupational Therapy evaluation explained. While performing mobility and self care, Patient was instructed in: Functional mobility training/weight bearing status, Safety awareness/fall precaution, Discharge plan and Self care training Presented to patient who demonstrates Good understanding of instructions given. INFORMED CONSENT TO TREATMENT: Plan of care including recommended therapy, goals and frequency, as well as potential risks and benefits of treatment/assessment explained to patient. Patient understands and agrees to proceed. ASSESSMENT: Patient demonstrated independence/ baseline with activities of daily living. No continued Occupational Therapy indicated at this time. Nurse and PT contacted regarding patient status and/or discharge plan. Fdc Goal: Patient to be independent/baseline with functional mobility and self care and be able to safely discharge to prior level of care If patient is discharged from the facility, this note serves as a discharge summary if further occupational therapy visits did not occur. Following therapy session, patient left in bed, with call light within reach and with family in room. Vania Crane OT 08/18/2019 ENG FARMER * Tiffanie Mcpherson, MUCKER OPERATOR-CONSTRUCTION MANAGEMENT ASSISTANT - 08/18/2019 2:24 PM CST Patient Identifiers Marcello Luis is a 49 year old male with 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 He is now s/p 3rd cycle bendamustine/gazyva and s/p splenectomy 08/17/19 Interval History: Aurelio is laying in bed, reports pain is biggest issue, just went for a walk and pain is higher now. Glad they were able to perform laparoscopically Moving bowels, increased diet today Had teeth extracted last week, remains sore Reviewed plan from BMT standpoint and infectious precautions. Review of Systems A comprehensive 12 point ROS was negative except as noted above. Medications Current Facility-Administered Medications Medication ??? 0.9% NaCl injection 10 mL ??? 0.9% NaCl injection 10 mL ??? 0.9% NaCl injection 3 mL And ??? 0.9% NaCl injection 3 mL ??? acetaminophen (TYLENOL) tablet 650 mg ??? acyclovir (ZOVIRAX) capsule 400 mg ??? cyclobenzaprine (FLEXERIL) tablet 10 mg ??? docusate sodium (COLACE) capsule 100 mg ??? enoxaparin (LOVENOX) injection 40 mg ??? escitalopram (LEXAPRO) tablet 10 mg ??? famotidine (PEPCID) tablet 20 mg ??? haemophilus B conjugate (ActHIB) injection 0.5 mL ??? ibuprofen (MOTRIN) tablet 600 mg ??? lidocaine (LIDODERM) 5 % patch 1 patch ??? magnesium oxide (MAG-OX) tablet 400 mg ??? meningococcal oligosaccharide ACYW-135 (MENVEO) vaccine inj ??? meningococcal vaccine B (BEXSERO) injection 0.5 mL ??? morphine injection 2 mg Or ??? morphine injection 4 mg ??? oxyCODONE (immediate release) (ROXICODONE) tablet 5 mg Or ??? oxyCODONE (immediate release) (ROXICODONE) tablet 10 mg ??? oxyCODONE (immediate release) (ROXICODONE) tablet 5 mg ??? penicillin v potassium (VEETIDS) tablet 500 mg ??? pneumococcal 13-Ina Conj (PREVNAR 13) vaccine 0.5 mL ??? polyethylene glycol 3350 (MIRALAX) packet 17 g Allergies: NKA Vitals Vitals: 08/18/19 0028 08/18/19 0450 08/18/19 0807 08/18/19 1151 BP: 123/67 102/86 111/70 139/79 Pulse: 75 74 76 65 Resp: Temp: 98.6 ??F 98.7 ??F 98.2 ??F 98.2 ??F SpO2: 94% 96% 98% 96% Weight: Height: Wt Readings from Last 3 Encounters: 08/17/19 120.7 kg (266 lb) 08/12/19 127 kg (280 lb) 08/12/19 124.3 kg (274 lb) Physical Exam Physical Examination: General appearance - alert, well appearing, and in no distress Mental status - alert, oriented to person, place, and time Abdomen - 3 surgical sites c/d/i Labs Recent Labs Component Name 08/18/19 0555 08/11/19 1116 07/26/19 1248 06/28/19 1351 WBC 10.6* 2.3* 3.0* 3.5 RBC 3.86* 3.88* 4.46 4.56 HGB 11.7* 11.6* 13.0* 12.6* HCT 33.3* 33.6* 37.1* 36.6* MCV 86.3 86.6 83.2 80.3* MCH 30.3 29.9 29.1 27.6* MCHC 35.1 34.5 35.0 34.4 PLTCOUNT 98* 60* 59* 37* RDWSD 41.3 44.5 44.8 50.3* RDW 13.5 14.3 14.9* 17.2* MPV 10.6 9.5 9.6 - NRBCABS 0.00 0.00 0.00 0.00 NRBCAUTOPCT 0.0 0.0 0.0 0.0 NEUTPCT - 61.9 69.0 75.7* LYMPHSPCT - 18.4* 13.7* 8.1* MONOPCT - 12.4 10.7 9.5 EOSPCT - 5.6 5.0 4.9 BASOPCT - 1.3 1.3 1.2 IMMGRANSPCT - 0.4 0.3 0.6 NEUTABS 8.06* 1.5* 2.1 2.6 LYMPHS 1.17 0.4* 0.4* 0.3* MONO 1.38* 0.29 0.32 0.33 EOS - 0.13 0.15 0.17 BASO - 0.03 0.04 0.04 TOTCELLCNT 100 - - - Recent Labs Component Name 08/18/19 0555 07/26/19 1248 06/28/19 1351 BUN 9 12 11 CREATININE 0.9 1.0 1.6* NA 141 140 141 POTASSIUM 4.0 4.3 4.1 CL 107 108* 109* CO2 22 23 25 GLU 100 97 97 CALCIUM 8.8 9.1 9.4 PROT 5.4* 6.0 6.0 ALB 3.5 4.0 4.2 TBILI 0.4 0.4 0.4 ALKPHOS 65 74 63 ALT 40 68* 31 AST 31 31 19 ANIONGAP 16 13 11 BCR 10 12 7 OSMOLALITY 291 290 291 AGRATIO 1.8 2.0 2.3 EGFR >60 >60 46* Recent Labs Component Name 08/18/19 0555 07/26/19 1248 06/28/19 1351 MAGNESIUM 1.7 1.8 1.7 Recent Labs Component Name 08/18/19 0555 07/26/19 1248 06/28/19 1351 PHOS 3.1 3.2 2.5 LDH Total Date Value Ref Range Status 05/24/2019 179 125 - 243 Units/L Final 03/22/2019 231 125 - 243 Units/L Final Most Recent Disease Specific Testing: PET/CT 08/11/19: No evidence of recurrent or residual disease ([place] 1). ?? Bone Marrow Biopsy (06/09/19) Path: normocellular marrow with maturing trilineage hematopoiesis. Non- necrotizing granuloma formation. Decreased iron storage. No evidence of lymphoma Flow: NISHA Assessment & Plan Marginal zone lymphoma-Relapsed -PET CT and BMBx as above -s/p 6 cycles R-CHOP (3 cycles with R), with early relapse. Now s/p cycle 3 Bendamustine/Gazyva -ACV 400 mg BID S/P Splenectomy 08/17/19 -vaccinated with prevnar, menveo, Hib on 08/11/19 -pen vk 250 mg BID to continue for many months (will need to continue through auto transplant and will need until able to be re-vaccinated) -recommend IVIG 0.4 g/kg. Plan was to give pre-transplant for hypogam and ideal to administer whileinpatient. Surgery to verify this is OK to proceed with. If unable to administer while admitted will give in BMT clinic post discharge -for DVT ppx: resume ASA 81 mg daily and recommend lovenox 40 mg daily upon discharge. This had been sent to local pharmacy to start approval process prior to discharge. Recommendations: -IVIG 0.4 g/kg x 1 for hypogam pre-auto transplant for marginal zone lymphoma -lovenox 40 mg daily prophylactic dosing as well as resume baby ASA upon discharge [facility] ENG FARMER * Emi Christie, PT - 08/18/2019 2:04 PM CST [facility] Physical Medicine and Rehabilitation Physical Therapy Initial Evaluation Note Patient: Marcello Luis Med Record Number: [id number] Date of : 1970 Age: [age] year old Discharge Recommendation: Patient should be able to return home when functionally able (see currentamount of assist needed below). Frequency: no further therapy indicated, as pt. Is indep with mobility. Patient currently using no assistive device. Occupational Therapy contacted regarding patient status and/or discharge plan. Physician Orders: Evaluation and Treat PRECAUTIONS: none Activity Level as tolerated DIAGNOSIS: Patient Active Problem List: DLBCL (diffuse large B cell lymphoma) B-cell lymphoma Lymphadenopathy History of marijuana use Past Medical History: Diagnosis Date ??? Diverticulosis ??? GERD (gastroesophageal reflux disease) taking prevacid prn ??? H/O echocardiogram 08/11/2019 ??? Lymphoma of lymph nodes ??? Multiple body piercings facial ??? Port-A-Cath in place right subclavian ??? Sleep apnea not using CPAP ??? Transient alteration of awareness 2018 during knee arthroplasty(single incident) SUBJECTIVE: I got up earlier and walked to the bathroom. PATIENT GOALS: to go home. Home living: Type of Residence: Private Residence Lives with:: (sister and fiance) Steps to Enter: 2(1 flight to basement to bedroom with rail) Ramp: No Handrails: Outdoor Home Structure: One Story;Basement Primary Bedroom: Basement Primary Bathroom: First Floor Equipment At Home: Crutches-Standard;Walker-2 Wheeled Prior Function: Mobility: Ambulate-In Community;Independent;Without Assistive Device;Driving Fallen Within 6 Mos: No Have Help at Home?: Yes, there is help at home now How often is assistance provided?: (as needed) Level of Help Sufficient?: Yes Oxygen at Home: No Activity at Home: Active Who manages medications?: self At start of therapy session, patient found in bed and with no alarm Pain: Patient has tolerable pain currently. Follow-up for pain: No follow-up for pain indicated and patient agreed to proceed with treatment OBJECTIVE: General Appearance: Male in bed awake in NAD. Precautions: IV's: Peripheral line Skin, Incisions, Edema: Surgery site not viewed. Other: na Vital Signs:(*Assess the 3 levels of oxygen saturations both for room air and 02 unless rest on room air is 88% or less). Rest: BP: HR: O2 SAT: Room Air L O2 Ex/Gait/Activity BP: HR: O2 SAT: Room Air L O2 Cool Down BP: HR: O2 SAT: Room Air L O2 Observations:nt MENTAL STATUS: Alert and oriented times 3 DIRECTION FOLLOWING: Able to follow multi-step commands 100% ROM: WFL STRENGTH: WFL SENSATION:light touch intact x 4 TONE: na NEGLECT: na COORDINATION: intact FUNCTIONAL MOBILITY Not Tested Not Applicable Independent Stand by Assist Minimal Moderate Maximum Dependent Rolling x Scooting x Supine to/from sit x Sit to/from Stand x Bed to/ chair x Observation: na BALANCE: Sitting Static: good Dynamic: good Standing Static: good Dynamic: good Observation: na GAIT: Weight Bearing: WBAT Distance: 270 feet Device: none Assistance: Independent Balance: good Steps: pt. Ascended/descended 4 steps with 1 rail indep. good endurance Observation: na ACTIVITY TOLERANCE: Patient's activity tolerance: good TREATMENT/INTERVENTIONS: evaluation, gait training and stair training EDUCATION: While performing PT, Patient was instructed in:Functional mobility training/weight bearing status and Safety awareness/fall precaution Patient demonstrated Good understanding of instructions given. INFORMED CONSENT TO TREATMENT: Plan of care including recommended therapy, goals and frequency, discussed with patient who understands and agrees to proceed. ASSESSMENT: Tolerated well. Patient demonstrates independence/ baseline with mobility/exercise. No continued Physical Therapy indicated at this time. Short Term Goals: Other goals: No goals set as pt. Is indep with functional mobility. Vice President Planning Goal(s): Patient to be independent/baseline with functional mobility and self care and be able to safely discharge to prior level of care Equipment Issued: gait belt Plan: If patient is discharged from the facility, this note serves as a discharge summary if further physical therapy visits did not occur. Following therapy session, patient left in bed, with call light within reach and with family in room P:D/C PT due to indep. Emi Christie, PT 08/18/2019 ENG FARMER * Ava Pandya RN - 08/18/2019 10:28 AM CST A Chart Review has been conducted by Case Management. Anticipated level of care at discharge: Unknown Discharge Plan: The patient will likely return home upon discharge, per the primary team no discharge needs are anticipated at this time. CM will continue to follow. Basic Needs Assessment (BNA) Score: 9 Anticipated Discharge Date: 08/20/19 PCP: Ran Nuñez MD Per nursing assessments: SBA Transportation (who): family Home/Functional Status: Functional and Cognitive Status Is person deaf or have serious hearing difficulty?: No Is person blind or have serious difficulty seeing?: No Does person have serious difficulty walking/climbing stairs?: No Does person have difficulty dressing/bathing?: No Does person have difficulty doing errands alone?: No Does person have difficulty concentrating/remembering/making decisions?: No Equipment with patient: None Assistive Devices: None ?. Will continue to follow. For any questions or needs please contact: Relief Docking Master Name/Phone number: Ava Pandya RN ext. [phone] ENG FARMER * Tom Lamar MD - 08/18/2019 7:15 AM CST [facility] Surgical Oncology Progress Note Admit: 08/17/2019 5:52 AM Date: August 18, 2019 SUBJECTIVE: History: Marcello Luis is a 49 year old male with hx of non-Hodgkin's lymphoma s/p CHOP with recurrence mid last year started on bendamustine/Gazyva and being prepped for BMT. Due to need of G-CSF administration during BMT and increased risk of splenic rupture associated with this, patient referred for splenectomy. S/p laparoscopic splenectomy 08/17/2019 Recent Events: Pain not well controlled. Tolerated clears last night. Denies nausea or vomiting. OBJECTIVE: Vital Signs: BP 102/86 Pulse 74 Temp 98.7 ??F (37.1 ??C) (Oral) Resp 19 Ht 5' 7.5 (1.715 m) Wt 266 lb (120.7 kg) SpO2 96% BMI 41.05 kg/m2 Temp: [98.1 ??F (36.7 ??C)-98.7 ??F (37.1 ??C)] 98.7 ??F (37.1 ??C) Pulse: [74-94] 74 Resp: [5-22] 19 BP: (102-157)/(58-102) 102/86 Diet: DIET REGULAR Is&Os: 08/17 0701 - 08/18 0700 In: 3280.8 [P.O.:670; I.V.:2610.8] Out: 2150 [Urine:1950] Physical Exam: Constitutional: NAD Respiratory: unlabored on RA Cardiovascular: RRR GI: soft, ND, diffusely TTP but appropriately, incision sites c/d/i Neurological: awake and alert Psychiatric: responding appropriately Labs: Recent Labs Component Name 08/18/19 0555 08/11/19 1116 07/26/19 1248 WBC 10.6* 2.3* 3.0* HGB 11.7* 11.6* 13.0* HCT 33.3* 33.6* 37.1* MCV 86.3 86.6 83.2 Recent Labs Component Name 08/18/19 0555 07/26/19 1248 06/28/19 1351 NA 141 140 141 CL 107 108* 109* CO2 22 23 25 BUN 9 12 11 CREATININE 0.9 1.0 1.6* GLU 100 97 97 CALCIUM 8.8 9.1 9.4 MAGNESIUM 1.7 1.8 1.7 PHOS 3.1 3.2 2.5 Recent Labs Component Name 08/18/19 0555 07/26/19 1248 06/28/19 1351 PROT 5.4* 6.0 6.0 ALB 3.5 4.0 4.2 TBILI 0.4 0.4 0.4 AST 31 31 19 ALT 40 68* 31 ALKPHOS 65 74 63 ASSESSMENT/PLAN: Marcello Luis is a 49 year old male with hx of non-Hodgkin's lymphoma on chemo being prepped forBMT. S/p laparoscopic splenectomy 08/17/19 for increased risk of splenic rupture with administrationof G-CSF. Neuro: - Pain control --- Continue schedule tylenol and ibuprofen; schedule oxycodone 5mg q4h; continue oxycodone 5-10mg prn q4h; IV morphine for breakthrough; will add flexeril and lidoderm patches - Continue home lexapro CV: - HD stable Pulm: - JUSTIN FEN/GI: - Advance to regular diet - DC IVF - Bowel regimen with colace : - adequate UOP Heme/ID: - splenectomy vaccines prior to discharge - continue home acyclovir - s/p dental extractions 08/16/19 --- continue home penicillin for total 7 day course (day 1 = 08/16) Endo: JUSTIN PPX: LVX Activity: AAT, PT/OT Dispo: Continue care on floor Tom Lamar MD PGY-3 08/18/2019 7:15 AM ENG FARMER Associated attestation - Chloe Kent MD - 08/18/2019 6:08 PM GINSENG FARMER Patient was seen and examined with resident. I concur with findings, assessment, and plan. The notehas been edited to reflect my findings. Chloe Kent MD 08/18/2019 6:08 PM * Vane Ferrera RN - 08/18/2019 4:09 AM CST Problem: Pain/Discomfort Goal: Patient exhibits reduced pain/discomfort as evidenced by pain scores Outcome: Ongoing Goal: Patient uses pharmacological and non-pharmacological pain management strategies. Outcome: Ongoing Goal: Patient verbalizes acceptable level of pain relief and ability to engage in desired activity. Outcome: Ongoing Pain is tolerable with current pain medicine regimen, scheduled and prn medications. Will continue to encourage patient to reposition frequently to aid in comfort. ENG FARMER * Thom Mcgill MD - 08/17/2019 8:55 PM CST Blue [facility] Post Op Check 08/17/2019 Admit: 08/17/2019 5:52 AM Hospital Day: 1 POD: Day of Surgery NAME: Marcello Luis Subjective: Patient returns from the OR after undergoing laparoscopic splenectomy. He has not taken any PO since surgery. He does not have any appetite at this time. Objective: BP 117/66 Pulse 89 Temp 98.1 ??F (36.7 ??C) (Oral) Resp 12 Ht 5' 7.5 (1.715 m) Wt 266 lb (120.7 kg) SpO2 94% BMI 41.05 kg/m2 Urine output post op:450 Physical Exam: Gen: Lying in bed, NAD CV: RRR. Resp: Nonlabored respirations. Abd: Soft, appropriately tender, nondistended. Incisions c/d/I with surgical glue in place. Ext: No c/c/e, extremities wwp Neuro: Moving all extremities spontaneously, no focal deficits Assessment Marcello Luis is a 49 year old male s/p laparoscopic splenectomy. POD#0 Plan: - HD: Stable - UOP: Adequate - pain: moderately controlled - OK to leave dressings open to air with surgical glue in place. - overall recovering well, continue post op care Thom Mcgill MD 08/17/2019 8:55 PM ENG FARMER documented in this encounter H&P Notes * Chloe Kent MD - 08/17/2019 5:36 AM CST [facility] History and Physical Encounter Date: 08/17/2019 Patient's Primary Care Physician: Ran Nuñez MD Name: Marcello Luis Age: [age] year old Race: Sex: male Chief Complaint: LUQ pain splenomegaly History of Present Illness Marcello Luis is a 49 year old male with hx of Non-hodgkins lymphoma, treated with R-CHOP in 2018. He was followed radiographically until 02/2019 when he began to complain of more LUQ pain. He was determined to have a recurrence. He was started on Bendamustine/gazyva, and is currently being evaluated and preopped for bone marrow transplant. As such, there is a concern with his splenomegaly for splenic rupture in the setting of G-CSF administration. He was referred to surgery for splenectomy prior to this. He was seen in clinic on 08/12, and has had no significant changes to his health historysince that time. Past Medical History: Past Medical History: Diagnosis Date ??? Diverticulosis ??? GERD (gastroesophageal reflux disease) taking prevacid prn ??? H/O echocardiogram 08/11/2019 ??? Lymphoma of lymph nodes ??? Multiple body piercings facial ??? Port-A-Cath in place right subclavian ??? Sleep apnea not using CPAP ??? Transient alteration of awareness 2018 during knee arthroplasty(single incident) Past Surgical Hisotry: Past Surgical History: Procedure Laterality Date ??? ACL RECONSTRUCTION ??? BONE MARROW BIOPSY ??? COLONOSCOPY WITH POLYPECTOMY ??? Knee Arthroscopy Right 2018 with hardware ??? Tonsillectomy ??? VENOUS ACCESS DEVICE (PORT OR CATHETER) Right 2019 subclavian Family History: Family History Family history unknown: Yes Social History: Social History Occupational History ??? Not on file Tobacco Use ??? Smoking status: Former Smoker Packs/day: 0.50 Types: Cigarettes Start date: 1983 Last attempt to quit: 2002 Years since quittin.0 ??? Smokeless tobacco: Former User Types: Chew Quit date: 2016 Substance and Sexual Activity ??? Alcohol use: Not Currently ??? Drug use: Yes Frequency: 21.0 times per week Types: Marijuana ??? Sexual activity: Not on file Current medications: No current facility-administered medications on file prior to encounter. Current Outpatient Medications on File Prior to Encounter Medication Sig Dispense Refill ??? acyclovir (ZOVIRAX) 400 MG tablet Take 1 tablet by mouth 2 times daily 60 tablet 11 ??? allopurinol (ZYLOPRIM) 300 MG tablet Take 300 mg by mouth once daily ??? BABY ASPIRIN PO Take 81 mg by mouth ??? diclofenac sodium EC (VOLTAREN) 75 MG tablet Take 75 mg by mouth 2 times daily ??? escitalopram (LEXAPRO) 10 MG tablet Take 1 tablet by mouth once daily 30 tablet 0 ??? HYDROcodone-acetaminophen (NORCO) 5-325 MG tablet Take 1 tablet by mouth every 4 hours as needed ??? lidocaine-prilocaine (EMLA) 2.5-2.5 % cream Apply to port site 30-60 mins before use. ??? ondansetron, disintegrating, (ZOFRAN ODT) 8 MG tablet Dissolve 1 tablet on top of tongue then swallow with saliva every 8 hours as needed for nausea or vomiting ??? polyethylene glycol 3350 (MIRALAX) packet Take 17 g by mouth once daily ??? prochlorperazine (COMPAZINE) 10 MG tablet Take 10 mg by mouth every 6 hours as needed Allergies: No Known Allergies Review of Systems Constitutional: Negative for fatigue, weight loss, fevers, chills, anorexia. Eyes: Negative for changes in vision or ocular discharge Ears: Negative for ear pain Nose: Negative for rhinorrhea, epistaxis Mouth: Negative for sores Throat: Negative for sore throat Respiratory: Negative for shortness of breath, acute cough, asthma, wheezing Cardiovascular: Negative for chest pain, cyanosis Gastrointestinal: Negative for nausea, vomiting, hemetemesis, hematochezia, constipation, diarrhea,+ abdominal pain Genitourinary: Negative for dysuria, hematuria Skin: Negative for rash Hematologic/lymphatic: Negative for easy bruising Musculoskeletal:Negative for joint pain, muscle pain Neurological: Negative for headaches, seizures Physical Examination: No data found. No intake/output data recorded. Exam GEN: NAD, AAOx3 HEENT: NC/AT, no ocular discharge, non-erythematous posterior pharynx Neck: Supple, no thyromegaly Resp: CTAB CV: RRR, no m/r/g Abd: Soft, NT/ND, +BS in all quadrants : normal genitalia, no hernias, no masses, no discharge or signs of infection Ext: no cyanosis, clubbing, or edema Lymph: No cervical, supraclavicular, axillary, or inguinal lymphadenopathy Psych: appropriate mood and affect Labs No new labs Imaging: Ct Abdomen Pelvis Wo Contrast Result Date: 07/30/2019 EXAMINATION: Computed tomography (CT) of the abdomen and pelvis without contrast HISTORY: C83.30: Diffuse large B-cell lymphoma, unspecified body region TECHNIQUE: CT of the abdomen and pelvis was performed without contrast according to standard protocol. COMPARISON: CT Abdomen Pelvis with Contraston 06/09/2019 FINDINGS: The visible lung bases are [...] seen on the prior exam. The distal esophagusand stomach appear normal. There is colonic diverticulosis [...] caliber. The urinary bladder is distended with fluidand appears normal. The prostate is present. No [...] lymphadenopathy. Dictated by Mary Ellen Ty MD (nursing resident). I, Dr. JIGNESH PECK M.D. have personally reviewedand interpreted this examination/study. This report was electronically signed by JIGNESH PECK M.D. on 07/30/2019 11:[address] Whole Body Result Date: 08/12/2019 PROCEDURE: PET/CT Study REFERRING PHYSICIAN: TIFFANIE MCPHERSON HISTORY: Diffuse large B-cell lymphomastatus post therapy with relapse. Prehematopoietic stem cell transplant. Evaluate for subsequent treatment strategy. TECHNIQUE: 10.57 mCi of F-18 FDG by IV in the right antecubital fossa. PET/CT image acquisition from the top of the head to the feet after approximately 60 minutes post- injection with the CT being low-dose, non-contrast. No separate report for the CT was generated since it was of non-diagnostic quality. Blood glucose level at the time of injection was 105 mg/dL. Patient's height is 173, cm, weight 280 pounds. FINDINGS: Comparison is made to a PET/CT performed at [facility] on March 15, 2019. For reference, SUV max of the mediastinum is 3.5. SUV max of the liver is 3.9. Head and neck: No abnormal FDG uptake is seen in the brain. There are no significantly FDGavid or enlarged cervical lymph nodes. Chest: No [...] spleen has decreased in size with normalization ofits FDG uptake now measuring 16 cm in [...] residual disease ([place] 1). This report was approvedby Tacos Rainey M.D. on 08/11/2019 11:15 AM . I, Dr. ANURADHA DEAN M.D. have personally reviewed and interpreted this examination/study. This report was electronically signed by ANURADHA DEAN M.D. on 08/12/2019 4:41 PM . Preop Risk Assesment: DNR Status: No Functional Health Status prior to surgery: independent Current Pneumonia: No Currently requiring or on Dialysis w/in 2 wks: No >10% loss of body weight in the last 6 months: No Current : No Prior Operation w/in 30 days: No Assessment Marcello Luis is a 49 year old male with recurrence of NHL and splenomegaly planning on bone marrow transplant, who presents for splenectomy to reduce risk of splenic rupture with G-CSF Plan To OR today with Dr. Kent for laparoscopic versus open splenectomy Cefoxitin written for Consent obtained Christina Paetl MD 08/17/2019 5:36 AM ENG FARMER documented in this encounter OR Notes * Operative - Chloe Kent MD - 08/17/2019 11:36 AM CST NAME: MARCELLO LUIS : 1970 AGE: 49 PROC DATE: 08/17/2019 SEX: M SURGEON: Chloe Kent MD PREOPERATIVE DIAGNOSIS: Non-Hodgkin's lymphoma. POSTOPERATIVE DIAGNOSIS: Non-Hodgkin's lymphoma. PROCEDURE: Laparoscopic splenectomy. SURGEON: Chloe Kent M.D. LITHOGRAPHIC PHOTOGRAPHER: Christina Patel M.D. ANESTHESIA: GETA. FINDINGS: Enlarged spleen measuring approximately 17 cm in size. COMPLICATIONS: None. INTRAVENOUS FLUIDS: 1.5 liters of crystalloid. ESTIMATED BLOOD LOSS: 250 mL. URINE OUTPUT: 150 mL. INDICATIONS: The patient is a 49-year-old male with a history of non-Hodgkin lymphoma treated with R-CHOP in 2018. He underwent surveillance and in 02/2019 was noted to have more pain in the left upper quadrant. At that time, he was found to have recurrence. He was started on bendamustine and Gazyva and is currently being prepped for bone marrow transplant. Due to the need for administration of G-CSF during this procedure, there is a risk of splenic rupture and therefore he was referred by his felt hat steamer/oncologist to undergo splenectomy. Risks, benefits and alternatives of laparoscopic, possible open splenectomy were explained to the patient in detail. After all questions were answered, the patient gave written and verbal consent to proceed. DESCRIPTION OF PROCEDURE: The patient was brought to the operating room and placed in supine position. Timeout was called. He was intubated without incident. Appropriate lines for monitoring were placed. He was then placed in lateral decubitus position and then prepped and draped in the usual sterile fashion. We began by a 5 mm skin incision just medial to the xiphoid and inferior to the costal margin. Veress needle was inserted. Pneumoperitoneum was obtained. We then used the Visiport, placed a 5 mm trocar. Next, we evaluated the intraabdominal cavity. The patient has a very enlarged spleen,approximately 17 cm in size. We placed our next 3 ports along the line of the costal margin, in this case approximately 3 to 4 cm below the costal margin, making sure that we were beyond the spleen to have enough working room intraabdominally. Once we had placed all the instruments, we began by taking down the ligament between the colon and the spleen. Once the hepatic flexure was taken down, we turned our attention to the gastrocolic ligament. The stomach was retracted upward. The colon was retracted downwards and the gastrocolic ligament was divided. This was divided above the plane of the splenic hilum, so as not to injure the splenic vessels. The short gastrics were divided all the way up to the hiatus. Once this was done, we then divided the splenorenal ligaments starting inferiorly.This was carried laterally also. Next, we dissected in the hilum. We took a vascular pedicle to theinferior portion of the spleen using a stapler. Once this was done, we noted that the inferior partof the spleen became ischemic. We dissected off the fatty tissue in the hilum, taking care not to injure the tail of the pancreas. The splenic artery was visualized and we isolated that and used a vas cular stapler to divide the splenic artery. The splenic vein was divided at the hilum to include all the fatty tissue in the hilum while taking care not to injure the pancreatic tail. Once this was done, the spleen was still attached to parts of the retroperitoneum and the diaphragm superiorly. These ligaments were taken down with the LigaSure device. Once the spleen was completely detached, we evaluated the wound and no bleeding was noted. We extended the port site of one of the 12 mm ports and placed a wound protector. We then could not find a large enough EndoCatch bag to fit the spleen. Therefore, we used our hands to removed the spleen from the abdominal cavity. Once this was done, we regained pneumoperitoneum. We irrigated the wound bed. No bleeding was noted. No injuries were noted. We then removed all instruments and all ports. The abdomen was desufflated. The fascia of the extraction site was closed with #1 looped PDS interrupted sutures. A second 12 mm port site was closed with 0 Vicryl on a UR-6 needle. The skin was closed with 4-0 Monocryl, then dressed with Exofin. The p atient tolerated the procedure and there were no complications. I was present for the entire procedure. Chloe Kent MD [id number] Doc ID: [id number] Voice Job ID: [id number] ENG FARMER * Brief Op Note - Christina Patel MD - 08/17/2019 8:31 AM CST Brief Op Note Procedure: LAPAROSCOPIC SPLENECTOMY POSS OPEN Patient Name: Marcello Luis Date of Service: 08/17/2019 Pre-Op Diagnosis: C85.97 Post-Op Diagnosis: Same Surgeon(s) and Role: * Chloe Kent MD - Primary * Christina Patel MD - Resident - Assisting Raw Stock Dyeing Machine Tender(s): Elton Cormier MS3 Anesthesia Type: general Complications: none Findings: splenomegaly EBL: 200 mL Urine Output : 150 mL IV Fluid Intake: crystalloid Drains: * No LDAs found * Specimen(s): Order Name Source Comment Collection Info Order Time PATHOLOGY TISSUE Spleen Pre-op diagnosis: C85.97 Collected By: Chloe Kent MD 08/17/2019 10:42 AM Christina Patel MD ENG FARMER documented in this encounter Plan of Treatment Upcoming Encounters Date Type Department Care Team (Late st Contact Info) Description 08/26/2024 11:00 AM GINSENG FARMER Office Visit [facility] - Pulmonology [facility], [place] [id number] Andrew Francis MD [address] [place] [address] 2L DIV OF PULMONARY/[place] [address] documented as of this encounter Procedures Procedure Name Priority Date/Time Associated Diagnosis Comments CBC W AUTO DIFFERENTIAL AM Draw 08/19/2019 5:42 AM GINSENG FARMER COMPREHENSIVE METABOLIC PANEL AM Draw 08/19/2019 5:42 AM GINSENG FARMER PHOSPHORUS BLOOD Routine 08/19/2019 5:42 AM GINSENG FARMER MAGNESIUM BLOOD Routine 08/19/2019 5:42 AM GINSENG FARMER OT EVAL AND TREAT Routine 08/18/2019 6:4 1 AM GINSENG FARMER PT EVAL AND TREAT Routine 08/18/2019 6:4 1 AM GINSENG FARMER DIFFERENTIAL MANUAL AM Draw 08/18/2019 5 :55 AM GINSENG FARMER CBC W AUTO DIFFERENTIAL AM Draw 08/18/2019 5:55 AM GINSENG FARMER COMPREHENSIVE METABOLIC PANEL AM Draw 08/18/2019 5:55 AM GINSENG FARMER PHOSPHORUS BLOOD Routine 08/18/2019 5:55 AM GINSENG FARMER MAGNESIUM BLOOD Routine 08/18/2019 5:55 AM GINSENG FARMER GLUCOSE - POINT OF CARE Routine 08/18/2019 4:51 AM GINSENG FARMER GLUCOSE - POINT OF CARE Routine 08/18/2019 12:31 AM GINSENG FARMER GLUCOSE - POINT OF CARE Routine 08/17/2019 9:45 PM GINSENG FARMER LAB MISC TEST (NOT BLOOD) Routine 08/17/2019 12:55 PM GINSENG FARMER Lymphosarcoma of spleen (HCC) PATHOLOGY TISSUE Routine 08/17/2019 9:07 AM GINSENG FARMER Non-Hodgkin's lymphoma of spleen, unspecified non-Hodgkin lymphoma type (HCC) SC LAP,SPLENECTOMY 08/17/2019 8: 31 AM GINSENG FARMER Non-Hodgkin's lymphoma of spleen, unspecified non-Hodgkin lymphoma type (HCC) Special Needs Supine PREPARE RBC LEUKOREDUCED UNIT STAT 08/17/2019 6:58 AM GINSENG FARMER Preoperative examination TYPE + SCREEN PANEL STAT 08/17/2019 6 :45 AM GINSENG FARMER Preoperative examination documented in this encounter Results * (ABNORMAL) CBC WITH DIFFERENTIAL (09/09/2019 12:42 PM GINSENG FARMER) WBC 5.7 3.5 - 10.5 10? 3 /uL 09/09/2019 1:00 PM [facility] RBC 4.25(L) 4.30 - 5.70 10? 6 /uL 09/09/2019 1:00 PM [facility] Hemoglobin 12.7(L) 13.5 - 17.5 g/dL 09/09/2019 1:00 PM [facility] Hematocrit 37.8(L) 39.0 - 50.0 % 09/09/2019 1:00 PM [facility] MCV 88.9 81.0 - 97.0 fL 09/09/2019 1:00 PM [facility] MCH 29.9 28.0 - 34.0 pg 09/09/2019 1:00 PM [facility] MCHC 33.6 32.0 - 36.0 g/dL 09/09/2019 1:00 PM [facility] Platelet Count 489(H) 150 - 400 10? 3 /uL 09/09/2019 1:00 PM [facility] RDW-SD 46.2 36.0 - 50.0 fL 09/09/2019 1:00 PM [facility] RDW-CV 14.2 11.2 - 14.8 % 09/09/2019 1:00 PM [facility] MPV 10.6 9.3 - 12.8 fL 09/09/2019 1:00 PM [facility] nRBC Absolute 0.00 0 10? 3 /uL 09/09/2019 1:00 PM [facility] nRBC Auto 0.0 0 /100 WBC 09/09/2019 1:00 PM [facility] Neutrophils % 56.9 35.0 - 70.0 % 09/09/2019 1:00 PM [facility] Lymphocytes % 18.9(L) 19.7 - 55.1 % 09/09/2019 1:00 PM [facility] Monocytes % 11.0 3.0 - 15.0 % 09/09/2019 1:00 PM [facility] Eosinophils % 10.2(H) 0.0 - 6.0 % 09/09/2019 1:00 PM [facility] Basophil % 2.8(H) 0.0 - 1.5 % 09/09/2019 1:00 PM [facility] Neutrophils Absolute 3.3 1.6 - 7.0 10? 3 /uL 09/09/2019 1:00 PM [facility] Lymphocyte Absolute 1.1 0.8 - 2.9 10? 3 /uL 09/09/2019 1:00 PM [facility] Monocytes Absolute 0.63 0.14 - 0.66 10? 3 /uL 09/09/2019 1:00 PM [facility] Eosinophils Absolute 0.58(H) 0.00 - 0.45 10? 3 /uL 09/09/2019 1:00 PM [facility] Basophils Absolute 0.16(H) 0.00 - 0.06 10? 3 /uL 09/09/2019 1:00 PM [facility] Immature Granulocytes % 0.2 0.0 - 1.0 % 09/09/2019 1:00 PM GINSENG FARMER [facility] Blood BLOOD SPECIMEN / Unknown Venipuncture / Unknown 09/09/2019 12:42 PM GINSENG FARMER 09/09/2019 12:50 PM GINSENG FARMER Debora Morgan MUCKER OPERATOR-CONSTRUCTION MANAGEMENT ASSISTANT LAB - HEMATOLOGY ORDERABLES [facility] [address] [place] [address] * (ABNORMAL) COMPREHENSIVE METABOLIC PANEL (09/09/2019 12:42 PM GINSENG FARMER) BUN 12 7 - 26 mg/dL 09/09/2019 1:15 PM [facility] Creatinine 0.9 0.6 - 1.2 mg/dL 09/09/2019 1:15 PM [facility] Sodium 142 136 - 145 mmol/L 09/09/2019 1:15 PM [facility] Potassium 4.2 3.5 - 4.5 mmol/L 09/09/2019 1:15 PM [facility] Chloride 108(H) 98 - 107 mmol/L 09/09/2019 1:15 PM [facility] CO2 23 22 - 29 mmol/L 09/09/2019 1:15 PM [facility] Glucose 90 70 - 115 mg/dL 09/09/2019 1:15 PM [facility] Calcium 9.3 8.4 - 10.2 mg/dL 09/09/2019 1:15 PM [facility] Protein Total 6.5 6.0 - 8.3 g/dL 09/09/2019 1:15 PM [facility] Albumin 3.8 3.4 - 5.0 g/dL 09/09/2019 1:15 PM [facility] Bilirubin Total 0.2 0.2 - 1.2 mg/dL 09/09/2019 1:15 PM [facility] Alkaline Phosphatase 108 40 - 150 Units/L 09/09/2019 1:15 PM [facility] ALT 36 0 - 55 Units/L 09/09/2019 1:15 PM [facility] AST 20 5 - 34 Units/L 09/09/2019 1:15 PM [facility] Anion Gap 15 8 - 18 09/09/2019 1:15 PM [facility] BUN/Creatinine Ratio 13 7 - 23 09/09/2019 1:15 PM [facility] Osmolality Calculated 293 270 - 300 mOsm/kg 09/09/2019 1:15 PM [facility] Albumin/Globulin Ratio 1.4 1.1 - 2.3 09/09/2019 1:15 PM [facility] eGFR >60 >60 mL/min/1.7 3 m2 09/09/2019 1:15 PM GINSENG FARMER [facility] Blood BLOOD SPECIMEN / Unknown Venipuncture / Unknown 09/09/2019 12:42 PM GINSENG FARMER 09/09/2019 12:50 PM GINSENG FARMER Debora Morgan MUCKER OPERATOR-CONSTRUCTION MANAGEMENT ASSISTANT LAB - CHEMISTRY ORDERABLES Performing Organization Address [facility]/ZIP Co de Phone Number [address] [phone] * (ABNORMAL) PHOSPHORUS BLOOD (08/19/2019 5:42 AM [facility]) Phosphorus 2.0(L) 2.3 - 4.7 mg/dL 08/19/2019 6:34 AM [facility] Blood BLOOD SPECIMEN / Unknown Lab Venipuncture / Unknown 08/19/2019 5:42 AM [facility] [facility] 08/19/2019 5:58 AM [facility] Marcello Shannon MD LAB - CHEMISTRY CINTHIA [place] Performing Organization Address City/[facility]/ZIP Co de Phone Number [address] [phone] * MAGNESIUM BLOOD (08/19/2019 5:42 AM [facility]) Magnesium 1.7 1.6 - 2.6 mg/dL 08/19/2019 6:34 AM [facility] Blood BLOOD SPECIMEN / Unknown Lab Venipuncture / Unknown 08/19/2019 5:42 AM [facility] [facility] 08/19/2019 5:58 AM [facility] Marcello Shannon MD LAB - CHEMISTRY CINTHIA [place] [facility] [address] [phone] * (ABNORMAL) CBC W AUTO DIFFERENTIAL (08/19/2019 5:42 AM [facility]) WBC 8.8 3.5 - 10.5 10? 3 /uL 08/19/2019 6:28 AM [facility] RBC 3.97(L) 4.30 - 5.70 10? 6 /uL 08/19/2019 6:28 AM [facility] Hemoglobin 12.1(L) 13.5 - 17.5 g/dL 08/19/2019 6:28 AM [facility] Hematocrit 34.7(L) 39.0 - 50.0 % 08/19/2019 6:28 AM [facility] MCV 87.4 81.0 - 97.0 fL 08/19/2019 6:28 AM [facility] MCH 30.5 28.0 - 34.0 pg 08/19/2019 6:28 AM [facility] MCHC 34.9 32.0 - 36.0 g/dL 08/19/2019 6:28 AM [facility] Platelet Count 161 150 - 400 10? 3 /uL 08/19/2019 6:28 AM [facility] Comment:All CBC parameters h ave been checked. RDW-SD 43.5 36.0 - 50.0 fL 08/19/2019 6:28 AM [facility] RDW-CV 13.8 11.2 - 14.8 % 08/19/2019 6:28 AM [facility] MPV 10.6 9.3 - 12.8 fL 08/19/2019 6:28 AM [facility] nRBC Absolute 0.00 0 10? 3 /uL 08/19/2019 6:28 AM [facility] nRBC Auto 0.0 0 /100 WBC 08/19/2019 6:28 AM [facility] Neutrophils % 75.3(H) 35.0 - 70.0 % 08/19/2019 6:28 AM [facility] Lymphocytes % 8.4(L) 19.7 - 55.1 % 08/19/2019 6:28 AM [facility] Monocytes % 13.4 3.0 - 15.0 % 08/19/2019 6:28 AM [facility] Eosinophils % 1.7 0.0 - 6.0 % 08/19/2019 6:28 AM [facility] Basophil % 0.7 0.0 - 1.5 % 08/19/2019 6:28 AM [facility] Neutrophils Absolute 6.6 1.6 - 7.0 10? 3 /uL 08/19/2019 6:28 AM [facility] Lymphocyte Absolute 0.7(L) 0.8 - 2.9 10? 3 /uL 08/19/2019 6:28 AM [facility] Monocytes Absolute 1.17(H) 0.14 - 0.66 10? 3 /uL 08/19/2019 6:28 AM [facility] Eosinophils Absolute 0.15 0.00 - 0.45 10? 3 /uL 08/19/2019 6:28 AM [facility] Basophils Absolute 0.06 0.00 - 0.06 10? 3 /uL 08/19/2019 6:28 AM [facility] Immature Granulocytes % 0.5 0.0 - 1.0 % 08/19/2019 6:28 AM [facility] Blood BLOOD SPECIMEN / Unknown Lab Venipuncture / Unknown 08/19/2019 5:42 AM [facility] 08/19/2019 5:58 AM [facility] Marcello Shannon MD LAB - HEMATOLOGY ORD ERABLES Performing Organization Address City/State/[facility] Co de Phone Number [address] [phone] * (ABNORMAL) COMPREHENSIVE METABOLIC PANEL (08/19/2019 5:42 AM [facility]) BUN 10 7 - 26 mg/dL 08/19/2019 6:34 AM [facility] Creatinine 1.0 0.6 - 1.2 mg/dL 08/19/2019 6:34 AM [facility] Sodium 143 136 - 145 mmol/L 08/19/2019 6:34 AM [facility] Potassium 3.7 3.5 - 4.5 mmol/L 08/19/2019 6:34 AM [facility] Chloride 108(H) 98 - 107 mmol/L 08/19/2019 6:34 AM [facility] CO2 26 22 - 29 mmol/L 08/19/2019 6:34 AM [facility] Glucose 89 70 - 115 mg/dL 08/19/2019 6:34 AM [facility] Calcium 9.2 8.4 - 10.2 mg/dL 08/19/2019 6:34 AM [facility] Protein Total 5.7(L) 6.0 - 8.3 g/dL 08/19/2019 6:34 AM [facility] Albumin 3.6 3.4 - 5.0 g/dL 08/19/2019 6:34 AM [facility] Bilirubin Total 0.4 0.2 - 1.2 mg/dL 08/19/2019 6:34 AM [facility] Alkaline Phosphatase 68 40 - 150 Units/L 08/19/2019 6:34 AM [facility] ALT 35 0 - 55 Units/L 08/19/2019 6:34 AM [facility] AST 29 5 - 34 Units/L 08/19/2019 6:34 AM [facility] Anion Gap 13 8 - 18 08/19/2019 6:34 AM [facility] BUN/Creatinine Ratio 10 7 - 23 08/19/2019 6:34 AM [facility] Osmolality Calculated 295 270 - 300 mOsm/kg 08/19/2019 6:34 AM [facility] Albumin/Globulin Ratio 1.7 1.1 - 2.3 08/19/2019 6:34 AM [facility] eGFR >60 >60 mL/min/1.7 3 m2 08/19/2019 6:34 AM [facility] Blood BLOOD SPECIMEN / Unknown Lab Venipuncture / Unknown 08/19/2019 5:42 AM [facility] [facility] 08/19/2019 5:58 AM [facility] Marcello Shannon MD LAB - CHEMISTRY CINTHIA [place] [facility] Organization Address City/State/ZIP Co de Phone Number [address] [phone] * (ABNORMAL) DIFFERENTIAL MANUAL (08/18/2019 5:55 AM [facility]) WBC (corrected for NRBC) 10.6 10? 3 /uL 08/18/2019 8:04 AM [facility] Total Cell Count 100 08/18/2019 8:04 AM [facility] Neutrophils Absolute Manual 8.06(H) 1.60 - 7.00 10? 3 /uL 08/18/2019 8:04 AM [facility] Comment:(BANDS+SEGS) x WBC = NEUT # (ANC) Lymphocyte Absolute Manual 1.17 0.80 - 2.90 10? 3 /uL 08/18/2019 8:04 AM [facility] Monocytes Absolute Manual 1.38(H) 0.14 - 0.66 10? 3 /uL 08/18/2019 8:04 AM [facility] Neutrophil % Manual 76(H) 30 - 60 % 08/18/2019 8:04 AM [facility] Lymphocyte % Manual 11(L) 20 - 45 % 08/18/2019 8:04 AM [facility] Monocytes % Manual 13(H) 2 - 10 % 08/18/2019 8:04 AM [facility] Platelet Estimate Decreased( A) Adequate 08/18/2019 8:04 AM [facility] RBC Morphology Normal 08/18/2019 8:04 AM [facility] Blood BLOOD SPECIMEN / Unknown Lab Venipuncture / Unknown 08/18/2019 5:55 AM [facility] 08/18/2019 5:59 AM [employer] Marcello Shannon MD LAB - HEMATOLOGY ORD LEONIE [address] [phone] * PHOSPHORUS BLOOD (08/18/2019 5:55 AM [facility]) Phosphorus 3.1 2.3 - 4.7 mg/dL 08/18/2019 6:27 AM [facility] Blood BLOOD SPECIMEN / Unknown Lab Venipuncture / Unknown 08/18/2019 5:55 AM [facility] [facility] 08/18/2019 5:59 AM [facility] Marcello Shannon MD LAB - CHEMISTRY ORDSharon [place] [address] [place] [address], [place] [phone] * MAGNESIUM BLOOD (08/18/2019 5:55 AM [employer]) Pathologist [facility] Magnesium 1.7 1.6 - 2.6 mg/dL 08/18/2019 6:27 AM [facility] Blood BLOOD SPECIMEN / Unknown Lab Venipuncture / Unknown 08/18/2019 5:55 AM [facility] [facility] 08/18/2019 5:59 AM [facility] Marcello Shannon MD LAB - CHEMISTRY CINTHIA [place] [address] [phone] * (ABNORMAL) CBC W AUTO DIFFERENTIAL (08/18/2019 5:55 AM [facility]) Pathologist [facility] WBC 10.6(H) 3.5 - 10.5 10? 3 /uL 08/18/2019 6:08 AM [facility] RBC 3.86(L) 4.30 - 5.70 10? 6 /uL 08/18/2019 6:08 AM [facility] Hemoglobin 11.7(L) 13.5 - 17.5 g/dL 08/18/2019 6:08 AM [facility] Hematocrit 33.3(L) 39.0 - 50.0 % 08/18/2019 6:08 AM [facility] MCV 86.3 81.0 - 97.0 fL 08/18/2019 6:08 AM [facility] MCH 30.3 28.0 - 34.0 pg 08/18/2019 6:08 AM [facility] MCHC 35.1 32.0 - 36.0 g/dL 08/18/2019 6:08 AM [facility] Platelet Count 98(L) 150 - 400 10? 3 /uL 08/18/2019 6:08 AM [facility] RDW-SD 41.3 36.0 - 50.0 fL 08/18/2019 6:08 AM [facility] RDW-CV 13.5 11.2 - 14.8 % 08/18/2019 6:08 AM [facility] MPV 10.6 9.3 - 12.8 fL 08/18/2019 6:08 AM [facility] nRBC Absolute 0.00 0 10? 3 /uL 08/18/2019 6:08 AM [facility] nRBC Auto 0.0 0 /100 WBC 08/18/2019 6:08 AM [facility] Blood BLOOD SPECIMEN / Unknown Lab Venipuncture / Unknown 08/18/2019 5:55 AM [facility] [facility] 08/18/2019 5:59 AM [facility] Marcello Shannon MD LAB - HEMATOLOGY ORD ERABLES [facility] [address] [place] [address] * (ABNORMAL) COMPREHENSIVE METABOLIC PANEL (08/18/2019 5:55 AM [facility]) BUN 9 7 - 26 mg/dL 08/18/2019 6:27 AM [facility] Creatinine 0.9 0.6 - 1.2 mg/dL 08/18/2019 6:27 AM [facility] Sodium 141 136 - 145 mmol/L 08/18/2019 6:27 AM [facility] Potassium 4.0 3.5 - 4.5 mmol/L 08/18/2019 6:27 AM [facility] Chloride 107 98 - 107 mmol/L 08/18/2019 6:27 AM [facility] CO2 22 22 - 29 mmol/L 08/18/2019 6:27 AM [facility] Glucose 100 70 - 115 mg/dL 08/18/2019 6:27 AM [facility] Calcium 8.8 8.4 - 10.2 mg/dL 08/18/2019 6:27 AM [facility] Protein Total 5.4(L) 6.0 - 8.3 g/dL 08/18/2019 6:27 AM [facility] Albumin 3.5 3.4 - 5.0 g/dL 08/18/2019 6:27 AM [facility] Bilirubin Total 0.4 0.2 - 1.2 mg/dL 08/18/2019 6:27 AM [facility] Alkaline Phosphatase 65 40 - 150 Units/L 08/18/2019 6:27 AM [facility] ALT 40 0 - 55 Units/L 08/18/2019 6:27 AM [facility] AST 31 5 - 34 Units/L 08/18/2019 6:27 AM [facility] Anion Gap 16 8 - 18 08/18/2019 6:27 AM [facility] BUN/Creatinine Ratio 10 7 - 23 08/18/2019 6:27 AM [facility] Osmolality Calculated 291 270 - 300 mOsm/kg 08/18/2019 6:27 AM [facility] Albumin/Globulin Ratio 1.8 1.1 - 2.3 08/18/2019 6:27 AM [facility] eGFR >60 >60 mL/min/1.7 3 m2 08/18/2019 6:27 AM [facility] Blood BLOOD SPECIMEN / Unknown Lab Venipuncture / Unknown 08/18/2019 5:55 AM [facility] 08/18/2019 5:59 AM [facility] [facility] Marcello Shannon MD LAB - CHEMISTRY CINTHIA [place] [address] [phone] * GLUCOSE - POINT OF CARE (08/18/2019 4:51 AM [facility] [facility]) Glucose WB/POC 103 70 - 115 mg/dL 08/18/2019 7:09 AM [facility] Specimen Type Arterial/C apillary 08/18/2019 7:09 AM [facility] Blood BLOOD SPECIMEN / Unknown 08/18/2019 4:51 AM [facility] [facility] 08/18/2019 7:09 AM [facility] [facility] Chloe Kent MD LAB - POINT [place] [address], [facility] [phone] * (ABNORMAL) GLUCOSE - POINT OF CARE (08/18/2019 12:31 AM [facility] [facility]) Glucose WB/POC 116(H) 70 - 115 mg/dL 08/18/2019 5:43 AM [facility] Specimen Type Arterial/C apillary 08/18/2019 5:43 AM [facility] Blood BLOOD SPECIMEN / Unknown 08/18/2019 12:31 AM [facility] 08/18/2019 5:43 AM [facility] [facility] Chloe Kent MD LAB - POINT OF CARE ORDERABLES [address] [phone] * (ABNORMAL) GLUCOSE - POINT OF CARE (08/17/2019 9:45 PM [facility] [facility]) Glucose WB/POC 119(H) 70 - 115 mg/dL 08/18/2019 5:43 AM [facility] Specimen Type Arterial/C apillary 08/18/2019 5:43 AM [facility] Blood BLOOD SPECIMEN / Unknown 08/17/2019 9:45 PM [facility] 08/18/2019 5:43 AM [facility] [facility] Chloe Kent MD LAB - POINT OF CARE ORDERABLES [address] [phone] * LAB MISC TEST (NOT BLOOD) (08/17/2019 12:55 PM [facility]) Test Name Annexin A1 with Interpretation 08/27/2019 10:55 AM [facility] REF LAB NON INTERF Test Result See Scanned Report 08/27 10:55 AM [facility] REF LAB NON INTERF Comment Ref Lab 08/27/2019 10:55 AM [facility] REF LAB NON INTERF Other ENTIRE SPLEEN / Unknown Collection / Unknown 08/17/2019 12:55 PM [facility] 08/18/2019 3:31 PM [facility] [facility] Chloe Kent MD LAB - BODY FLUID ORD ERABLES [facility] REF LAB NON INTERF [address] [place] [address] * PATHOLOGY TISSUE (08/17/2019 9:07 AM [facility]) Case Report Surgical Pathology Report ? Case: [id number] ? Authorizing Provider: ??Chloe Kent MD ?Collected: ? 08/17/2019 09:07 AM ? Ordering Location: ? [facility] ? Received: ?08/17/2019 11:52 AM ? Pathologist: ? Margaret Hooker Mai, DO ? Specimen: ?Spleen, spleen for permanent ? [facility]2019 [facility] Final Diagnosis Spleen, resection: - Congestion with prominent red pulp sinuses. - Negative for malignancy. 10/21/2019 5:16 PM [facility] Microscopic Description and Comment The gross specimen was reviewed and shows no mass lesion. Sections show congested red pulp with prominent splenic sinuses. There is focal white pulp in the background. Given the patient history of lymphoma and no flow sample submitted, immunoperoxidase studies were performed to exclude splenic involvement. Immunohistochemical stains show normal distribution of CD3, CD5 and BCL2 are positive T cells. There is no significant B-cell population (patient history of rituximab treatment was noted so both CD20 and PAX5 were performed). CD138 shows no plasma cell population. CD10, BCL6 and CD25 are positive in a subset of the T cells. CD23 and cyclin D1 are negative. CD34 highlights vessels and CD8 highlights the splenic sinuses (both are positive with CD31). CD68 is positive in background histiocytes. There is nonspecific blushing but no light chain restrction by in situ hybridization. CLARE in situ hybridization is negative. The immunohistochemical controls are appropriately reactive. 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 Case reviewed at intradepartmental consensus conference. 10/21/2019 5:16 PM [facility] Clinical History The patient is a 49-year-old man with a history of lymphoma who underwent splenectomy due to concerns of splenomegaly and possible rupture. 10/21/2019 5:16 PM [facility] Gross Description The requisition and specimen label(s) are identified with the patient name, Marcello Luis Received in formalin, Specimen A is a 621 g, 17 x 11 x 7.5 cm spleen. The capsular surface is purple-brown, smooth and glistening. The hilum shows vessels stapled closed. The specimen is sectioned to show solid, maroon cut surfaces. No focal lesions are identified. Forensic Accountant sections are submitted in cassettes A1 and A2. Lakhwinder 10/21/2019 5:16 PM [facility] Addendum 1 A properly controlle d annexin stain was performed at [facility]. The H&E, CD20 and PAX5 stains with controls were reviewed in conjunction with the stain. Annexin is positive background T cells, granulocytes and macrophages. The diagnosis is unchanged. 10/21/2019 5:16 PM [facility] Addendum electronically signed by Margaret Hooker Mai, DO on 08/29/2019 at 11:29 AM Addendum 2 This addendum has been created for billing clarification. Joaquin and lambda light chain by in situ hybridization were performed on this sample. There is nonspecific blushing but no light chain restriction by in situ hybridization. The diagnosis is unchanged. 10/21/2019 5:16 PM [facility] Addendum electronically signed by Margaret Hooker Mai, DO on 10/21/2019 at 5:16 PM Disclaimer The performance characteristics of all immunohistochemical and indirect immunofluorescence stains (if any) cited in this report were determined by the Histopathology Laboratory of [facility]. Some of these tests were [...] and interpreted by the attending (teaching) pathologist. 10/21/2019 5:16 PM CDT [facility] Embedded Images 10/21/2019 5:16 PM CDT [facility] Resection without Tumor ENTIRE SPLEEN / Unknown 08/17/2019 9:07 AM [facility] 08/17/2019 11:52 AM [facility] Comment:Pre-op diagnosis: C85.97 Chloe Kent MD LAB - PATHOLOGY/CYTO LOGY ORDERABLES Performing Organization Address City/State/[facility] Co de Phone Number [facility] [address] [phone] * PREPARE (CROSSMATCH) RBC UNIT(S), 2 Units (08/17/2019 6:58 AM [facility]) Unit Description LR IRR Red Cells [facility] Unit ABO A [facility] Unit Rh POS [facility] Product Code RU1 [facility] BLO OD [facility] LAB Unit Donor # [id number] [facility] Unit Status released [facility] BLOO D BANK LAB Product Number [id number] [facility] B LOOD [facility] Blood Type Barcode 6200 [facility] Unit Description LR IRR Red Cells [facility] Unit ABO A [facility] Unit Rh POS [facility] Product Code RU1 [facility] BLO OD [facility] LAB Unit Donor # [id number] 5 [facility] Unit Status released [facility] BLOO D [facility] LAB Product Number [id number] [facility] B LOOD [facility]ANK LAB Blood Type Barcode 6200 [facility] Blood Bank BLOOD SPECIMEN / Unknown 08/17/2019 6:58 AM [facility] 08/17/2019 6:58 AM [facility] Elkin Shahid MD LAB - BLOOD BANK ORD ERABLES [facility] [address] * TYPE + SCREEN PANEL (08/17/2019 6:45 AM [facility]) Antibody Screen NEG 0 7:51 AM [facility] ABO Rh A POS 08/17/2019 7:51 AM [facility] Blood Bank BLOOD SPECIMEN / Unknown Venipuncture / Unknown 08/17/2019 6:45 AM [facility] 08/17/2019 6:57 AM [facility] Elkin Shahid MD LAB - BLOOD BANK ORD ERABLES [facility] [address] documented in this encounter Visit Diagnoses Diagnosis Preoperative examination- Primary Preoperative examination, unspecified Non-Hodgkin's lymphoma of spleen, unspecified non-Hodgkin lymphoma type (HCC) B-cell lymphoma, unspecified B-cell lymphoma type, unspecified body region (HCC) 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 $ Given 08/19/2019 1:38 PM [facility] 10 mL 0.9% NaCl injection 10 mL 10 mL, Intracatheter, EVERY 8 HOURS, First dose on Fri08/17/19 at 2200, Until Discontinued, Flush peripheral IV catheter with 1-10 mL of normal saline before and after medications and prn to clear blood from the line or to verify patency. $ Given 08/19/2019 1:38 PM [facility] 10 mL 0.9% NaCl injection 3 mL 3 mL, Intracatheter, EVERY 8 HOURS, First dose on Fri08/17/19 at 2200, Until Discontinued $ Given 08/19/2019 1:38 PM [facility] 3 mL $ Given 08/19/2019 6:44 AM [facility] 3 mL $ Given 08/19/2019 12:33 AM [facility] 3 mL 0.9% NaCl injection 3 mL 3 mL, Intracatheter, PRN, Other, peripheral line flush, Starting on Fri08/17/19 at 1825, Until Fri08/19/19 at 1646, Flush after each use and blood draws. $ Given 08/17/2019 9:13 PM [facility] 3 mL $ Given 08/17/2019 7:58 PM [facility] 3 mL acetaminophen (TYLENOL) tablet 650 mg 650 mg, Oral, EVERY 6 HOURS, 20 doses, First dose on Fri08/17/19 at 1300, Last dose on Fri08/22/19 at 0600 $ Given 08/19/2019 11:30 AM [facility] 650 mg $ Given 08/19/2019 6:43 AM [facility] 650 mg $ Given 08/19/2019 12:32 AM [facility] 650 mg acyclovir (ZOVIRAX) capsule 400 mg 400 mg, Oral, 2 TIMES DAILY, First dose (after last reorder) on Fri08/18/19 at 0900, Until Discontinued, Indication for anti-infective therapy: Chronic prophylaxis $ Given 08/19/2019 9:40 AM [facility] 400 mg $ Given 08/18/2019 9:58 PM [facility] 400 mg $ Given 08/18/2019 9:46 AM [facility] 400 mg bupivacaine PF (MARCAINE PF) 0.25 % injection PRN, Starting on Fri08/17/19 at 1045, Until Fri08/17/19 at 1109, Intra-op $ Given 08/17/2019 10:45 AM [facility] 30 mL Operative Site bupivacaine PF (MARCAINE PF) 0.25 % injection PRN, Starting on Fri08/17/19 at 1046, Until Fri08/17/19 at 1109, Intra-op $ Given 08/17/2019 10:46 AM [facility] 8 mL Operative Site cyclobenzaprine (FLEXERIL) tablet 10 mg 10 mg, Oral, 3 TIMES DAILY, First dose (after last modification) on Fri08/18/19 at 0900, Until Discontinued $ Given 08/19/2019 1:38 PM [facility] 10 mg $ Given 08/19/2019 9:40 AM [facility] 10 mg $ Given 08/18/2019 9:58 PM [facility] 10 mg docusate sodium (COLACE) capsule 100 mg 100 mg, Oral, DAILY, First dose on Fri08/18/19 at 0900, Until Discontinued $ Given 08/19/2019 9:40 AM [facility] 100 mg $ Given 08/18/2019 9:46 AM [facility] 100 mg enoxaparin (LOVENOX) injection 40 mg 40 mg, Subcutaneous, DAILY AT 2200, First dose on Fri08/17/19 at 2200, Until Discontinued, (for prefilled syringes) do not expel air bubble from the syringe prior to the injection Remind Patient to not rub injection site. Could cause hematoma. $ Given 08/18/2019 9:59 PM [facility] 40 mg Righ t Leg $ Given 08/17/2019 9:11 PM [facility] 40 mg Le ft Arm escitalopram (LEXAPRO) tablet 10 mg 10 mg, Oral, DAILY, First dose on Fri08/18/19 at 0900, Until Discontinued $ Given 08/19/2019 10:57 AM [facility] 10 mg $ Given 08/18/2019 9:46 AM [facility] 10 mg famotidine (PEPCID) tablet 20 mg 20 mg, Oral, 2 TIMES DAILY, First dose on Fri08/18/19 at 1315, Until Discontinued $ Given 08/19/2019 9:40 AM [employer] 20 m g $ Given 08/18/2019 9:58 PM [employer] 20 mg $ Given 08/18/2019 2:44 PM [employer] 20 mg ibuprofen (MOTRIN) tablet 600 mg 600 mg, Oral, EVERY 6 HOURS, 20 doses, First dose on Fri08/17/19 at 1300, Last dose on Fri08/22/19 at 0600, Not to exceed 3200 mg daily from all sources. $ Given 08/19/2019 11:30 AM [employer] 600 mg $ Given 08/19/2019 6:43 AM [employer] 600 mg $ Given 08/19/2019 12:32 AM [employer] 600 mg immune globulin IVIG (human) 10 % infusion 40 g 40 g (rounded from 35.48 g = 0.4 g/kg ? 88.7 kg Adjusted weight), Intravenous, CONTINUOUS, Starting on Fri08/19/19 at 1230, Until Fri08/19/19 at 1629, Initiate IVIG at 0.5 mg/kg/min (36 mL/hr with VTBI: 18.11 mL) for 30 minutes. If tolerated, increase rate to 1 mg/kg/min (72 mL/hr with VTBI: 36.21 mL ) for 30 min. If tolerated, increase rate to 2 mg/kg/min (145 mL/hr with VTBI: 72.42 mL ) for 30 min. If tolerated, increase rate to 4 mg/kg/min (290 mL/hr with VTBI: 144.84 mL ) for 30 min. If tolerated, increase rate to 8 mg/kg/min (579 mL/hr with VTBI: 289.68 mL or until bag contents completely infused) See IVIG Monitoring order in Nursing Communications for monitoring instructions. $ New Bag/Syringe 08/19/2019 3:17 PM GINSENG FARMER 40 g 579 mL/hr $ New Bag/Syringe 08/19/2019 2:36 PM GINSENG FARMER 40 g 290 mL /hr $ New Bag/Syringe 08/19/2019 2:05 PM GINSENG FARMER 40 g 145 mL /hr K phos & NA phos (K PHOS NEUTRAL) tablet 1 tablet 1 tablet, Oral, 2 TIMES DAILY, 2 doses, First dose on Fri08/19/19 at 0915, Last dose on Fri08/19/19 at 2100, Contains Phos 8 mmol, K+ 1.1 mEq, Na 13 mEq per tablet $ Given 08/19/2019 9:40 AM GINSENG FARMER 1 tablet lidocaine (LIDODERM) 5 % patch 1 patch 1 patch, Administer over 12 Hours, DAILY, First dose on Fri08/18/19 at 0900, Until Discontinued, Apply to abdomen and remove patch after a max of 12 hours of application within a 24 hour period. $ Applied 08/19/2019 9:40 AM GINSENG FARMER 1 patch Abdominal Tissue $ Applied 08/18/2019 9:46 AM GINSENG FARMER 1 patch Ab dominal Tissue lidocaine 1% - EPINEPHrine 1:100,000 injection PRN, Starting on Fri08/17/19 at 1045, Until Fri08/17/19 at 1109, Intra-op $ Given 08/17/2019 10:45 AM GINSENG FARMER 8 mL Operative Site magnesium oxide (MAG-OX) tablet 400 mg 400 mg, Oral, DAILY, First dose on Fri08/18/19 at 0900, Until Discontinued $ Given 08/19/2019 9:40 AM GINSENG FARMER 400 mg $ Given 08/18/2019 12:35 PM GINSENG FARMER 400 mg oxyCODONE (immediate release) (ROXICODONE) tablet 10 mg 10 mg, Oral, EVERY 4 HOURS PRN, Severe Pain, Starting on Fri08/18/19 at 0716, Until Ofelia 08/19/19 at 1646 $ Given 08/18/2019 12:36 PM GINSENG FARMER 10 mg oxyCODONE (immediate release) (ROXICODONE) tablet 5 mg 5 mg, Oral, EVERY 4 HOURS, First dose on Fri08/18/19 at 0800, Until Discontinued $ Given 08/19/2019 1:38 PM GINSENG FARMER 5 mg $ Given 08/19/2019 9:41 AM GINSENG FARMER 5 mg $ Given 08/19/2019 6:44 AM GINSENG FARMER 5 mg oxyCODONE (immediate release) (ROXICODONE) tablet 5 mg 5 mg, Oral, EVERY 4 HOURS PRN, Moderate Pain, Starting on Fri08/18/19 at 0716, Until Ofelia 08/19/19 at 1646 penicillin v potassium (VEETIDS) tablet 500 mg 500 mg, Oral, EVERY 6 HOURS, 20 doses, First dose on Fri08/18/19 at 1200, Last dose on Fri08/23/19 at 0600, Indication for anti-infective therapy: Surgical prophylaxis $ Given 08/19/2019 11:30 AM GINSENG FARMER 500 mg $ Given 08/19/2019 6:43 AM GINSENG FARMER 500 mg $ Given 08/19/2019 12:32 AM GINSENG FARMER 500 mg polyethylene glycol 3350 (MIRALAX) packet 17 g 17 g, Oral, DAILY, First dose on Fri08/18/19 at 1245, Until Discontinued, Mix in 8 ounces of water, juice, soda, coffee or tea prior to administration $ Given 08/19/2019 9:40 AM GINSENG FARMER 17 g $ Given 08/18/2019 2:44 PM GINSENG FARMER 17 g documented in this encounter Active and Recently Administered Medications Times are shown in G[employer]ER. Scheduled Medication Order 08/17/2019 08/18/2019 08/19/2019 0.9% NaCl injection 10 mL 10 mL, Intracatheter, EVERY 8 HOURS, First dose on Fri08/17/19 at 2200, Until Discontinued, Flush peripheral IV catheter with 3 mL of normal saline every 8 hours. 2112 (Not Administered - Provider: Vane Ferrera RN - Reason: Documented on duplicate row) 0538 (Not Administered - Provider: Vane Ferrera RN - Reason: IV Currently Infusing)144 (Not Administered - Provider: Yanni Javier RN - Reason: See Comments - Comment: no port access at this time) 0034 (Not Administered - Provider: Onelia Phipps V - Reason: Documented on duplicate row)0644 (Not Administered - Provider: Onelia [place] V - Reason: Documented on duplicate row)1338 ($ Given - Provider: Eleno Parra, ROSEMARY) 0.9% NaCl injection 10 mL 10 mL, Intracatheter, EVERY 8 HOURS, First dose on Fri08/17/19 at 2200, Until Discontinued, Flush peripheral IV catheter with 1-10 mL of normal saline before and after medications and prn to clear blood from the line or to verify patency. 2112 (Not Administered - Provider: Vane Ferrera RN - Reason: Documented on duplicate row) 05 (Not Administered - Provider: Vane Ferrera RN - Reason: IV Currently Infusing)144 (Not Administered - Provider: Yanni Javier RN - Reason: See Comments - Comment: no port access at this time) 003 (Not Administered - Provider: Onelia Phipps V - Reason: Documented on duplicate row)0644 (Not Administered - Provider: Onelia Phipps V - Reason: Documented on duplicate row)1338 ($ Given - Provider: Eleno Parra RN) 0.9% NaCl injection 3 mL(Linked Group 1) 3 mL, Intracatheter, EVERY 8 HOURS, First dose on Fri08/17/19 at 2200, Until Discontinued 2113 (Not Administered - Provider: Vane Ferrera RN - Reason: Documented on duplicate row) 0538 (Not Administered - Provider: Vane Ferrera RN - Reason: IV Currently Infusing)1445 ($ Given - Provider: Yanni Javier RN) 0033 ($ Given - Provider: Onelia Phipps V)0644 ($ Given - Provider: Onelia Phipps V)1338 ($ Given - Provider: Eleno Parra RN) acetaminophen (TYLENOL) tablet 650 mg 650 mg, Oral, EVERY 6 HOURS, 20 doses, First dose on Fri08/17/19 at 1300, Last dose on Fri08/22/19 at 0600 1305 ($ Given - Provider: Karie Crane RN)1956 ($ Given - Provider: Vane Ferrera, ROSEMARY) 0004 ($ Given - Provider: Vane Ferrera, RN)0537 ($ Given - Provider: Vane Ferrera, RN)1235 ($ Given - Provider: Yanni Javier RN)1758 ($ Given - Provider: Yanni Javier RN) 0032 ($ Given - Provider: Onelia Phipps V)0643 ($ Given - Provider: Onelia Phipps V)1130 ($ Given - Provider: Eleno Parra RN) acyclovir (ZOVIRAX) capsule 400 mg 400 mg, Oral, 2 TIMES DAILY, First dose (after last reorder) on Fri08/18/19 at 0900, Until Discontinued, Indication for anti-infective therapy: Chronic prophylaxis 0946 ($ Given - Provider: Yanni Javier RN)2158 ($ Given - Provider: Onelia Phipps V) 0940 ($ Given - Provider: Eleno Parra RN) cyclobenzaprine (FLEXERIL) tablet 10 mg 10 mg, Oral, 3 TIMES DAILY, First dose (after last modification) on Fri08/18/19 at 0900, Until Discontinued 0946 ($ Given - Provider: Yanni Javier RN)1445 ($ Given - Provider: Yanni Javier RN)2158 ($ Given - Provider: Onelia Phipps V) 0940 ($ Given - Provider: Eleno Parra, ROSEMARY)1338 ($ Given - Provider: Eleno Parra, ROSEMARY) docusate sodium (COLACE) capsule 100 mg 100 mg, Oral, DAILY, First dose on Fri08/18/19 at 0900, Until Discontinued 0946 ($ Given - Provider: Yanni Javier RN) 0940 ($ Given - Provider: Eleno Parra, ROSEMARY) enoxaparin (LOVENOX) injection 40 mg 40 mg, Subcutaneous, DAILY AT 2200, First dose on Fri08/17/19 at 2200, Until Discontinued, (for prefilled syringes) do not expel air bubble from the syringe prior to the injection Remind Patient to not rub injection site. Could cause hematoma. 211 ($ Given - Provider: Vane Ferrera RN) 215 ($ Given - Provider: Onelia Phipps V) escitalopram (LEXAPRO) tablet 10 mg 10 mg, Oral, DAILY, First dose on Fri08/18/19 at 0900, Until Discontinued 0946 ($ Given - Provider: Yanni Javier RN) 1057 ($ Given - Provider: Eleno Parra, ROSEMARY) famotidine (PEPCID) tablet 20 mg 20 mg, Oral, 2 TIMES DAILY, First dose on Fri08/18/19 at 1315, Until Discontinued 1444 ($ Given - Provider: Yanni Javier RN)2158 ($ Given - Provider: Onelia Phipps V) 0940 ($ Given - Provider: Eleno Parra, ROSEMARY) ibuprofen (MOTRIN) tablet 600 mg 600 mg, Oral, EVERY 6 HOURS, 20 doses, First dose on Fri08/17/19 at 1300, Last dose on Fri08/22/19 at 0600, Not to exceed 3200 mg daily from all sources. 1611 ($ Given - Provider: Maria Del Carmen Puri RN)1956 ($ Given - Provider: Vane Ferrera RN) 0004 ($ Given - Provider: Vane Ferrera RN)0537 ($ Given - Provider: Vane Ferrera, ROSEMARY)1235 ($ Given - Provider: Yanni Javier, ROSEMARY)1758 ($ Given - Provider: Yanni Javier RN) 0032 ($ Given - Provider: Onelia Phipps V)0643 ($ Given - Provider: Onelia Phipps V)1130 ($ Given - Provider: Eleno Parra, ROSEMARY) K phos & NA phos (K PHOS NEUTRAL) tablet 1 tablet 1 tablet, Oral, 2 TIMES DAILY, 2 doses, First dose on Fri08/19/19 at 0915, Last dose on Fri08/19/19 at 2100, Contains Phos 8 mmol, K+ 1.1 mEq, Na 13 mEq per tablet 0940 ($ Given - Provider: Eleno Parra, ROSEMARY) lidocaine (LIDODERM) 5 % patch 1 patch 1 patch, Administer over 12 Hours, DAILY, First dose on Fri08/18/19 at 0900, Until Discontinued, Apply to abdomen and remove patch after a max of 12 hours of application within a 24 hour period. 0946 ($ Applied - Provider: Yanni Javier RN)2201 (Removed - Provider: Onelia Phipps V) 0940 ($ Applied - Provider: Eleno Parra RN)2140 (Due: Removed - Provider: Eleno Parra RN) magnesium oxide (MAG-OX) tablet 400 mg 400 mg, Oral, DAILY, First dose on Fri08/18/19 at 0900, Until Discontinued 1235 ($ Given - Provider: Yanni Jaiver RN) 0940 ($ Given - Provider: Eleno Parra RN) oxyCODONE (immediate release) (ROXICODONE) tablet 5 mg 5 mg, Oral, EVERY 4 HOURS, First dose on Fri08/18/19 at 0800, Until Discontinued 0946 ($ Given - Provider: Yanni Javier RN)1331 (Not Administered - Provider: Yanni Javier RN - Reason: See Comments - Comment: Moved to 1400)1445 ($ Given - Provider: Yanni Javier RN)1758 ($ Given - Provider: Yanni Javier RN)2159 ($ Given - Provider: Onelia Phipps V) 0246 ($ Given - Provider: Radha Rao RN)0644 ($ Given - Provider: Onelia Phipps V)0941 ($ Given - Provider: Eleno Parra, ROSEMARY)1338 ($ Given - Provider: Eleno Parra RN) penicillin v potassium (VEETIDS) tablet 500 mg 500 mg, Oral, EVERY 6 HOURS, 20 doses, First dose on Fri08/18/19 at 1200, Last dose on Fri08/23/19 at 0600, Indication for anti-infective therapy: Surgical prophylaxis 1444 ($ Given - Provider: Yanni Javier RN)1758 ($ Given - Provider: Yanni Javier RN) 0032 ($ Given - Provider: Onelia Phipps V)0643 ($ Given - Provider: Onelia Phipps V)1130 ($ Given - Provider: Eleno Parra RN) polyethylene glycol 3350 (MIRALAX) packet 17 g 17 g, Oral, DAILY, First dose on Fri08/18/19 at 1245, Until Discontinued, Mix in 8 ounces of water, juice, soda, coffee or tea prior to administration 1444 ($ Given - Provider: Yanni Javier RN) 0940 ($ Given - Provider: Eleno Parra RN) Continuous Medication Order 08/17/2019 08/18/2019 08/19/2019 immune globulin IVIG (human) 10 % infusion 40 g 40 g (rounded from 35.48 g = 0.4 g/kg ? 88.7 kg Adjusted weight), Intravenous, CONTINUOUS, Starting on Ofelia 08/19/19 at 1230, Until Ofelia 08/19/19 at 1629, Initiate IVIG at 0.5 mg/kg/min (36 mL/hr with VTBI: 18.11 mL) for 30 minutes. If tolerated, increase rate to 1 mg/kg/min (72 mL/hr with VTBI: 36.21 mL ) for 30 min. If tolerated, increase rate to 2 mg/kg/min (145 mL/hr with VTBI: 72.42 mL ) for 30 min. If tolerated, increase rate to 4 mg/kg/min (290 mL/hr with VTBI: 144.84 mL ) for 30 min. If tolerated, increase rate to 8 mg/kg/min (579 mL/hr with VTBI: 289.68 mL or until bag contents completely infused) See IVIG Monitoring order in Nursing Communications for monitoring instructions. 1236 ($ New Bag/Syringe - Provider: Eleno Parra RN)1334 (Titration/Assessmen t - Provider: Eleno Parra RN)1405 ($ New Bag/Syringe - Provider: Eleno Parra RN)1436 ($ New Bag/Syringe - Provider: Eleno Parra, RN)1517 ($ New Bag/Syringe - Provider: Eleno Parra, RN)1534 (Stopped - Provider: Eleno Parra RN) lactated ringers infusion (CANCELED) at 125 mL/hr, Intravenous, CONTINUOUS, Starting on Fri08/17/19 at 1115, Until Fri08/17/19 at 1756, PACU 1130 (*Current Bag - New Order - Provider: Maria Del Carmen Puri RN - Comment: remains from OR) lactated ringers infusion (CANCELED) at 125 mL/hr, Intravenous, CONTINUOUS, Starting on Fri08/17/19 at 1830, Until Fri08/18/19 at 1153 2112 ($ New Bag/Syringe - Provider: Vane Ferrera, ROSEMARY) 0640 ($ New Bag/Syringe - Provider: Vane Ferrera RN) PRN Medication Order 08/17/2019 08/18/2019 08/19/2019 0.9% NaCl injection 3 mL(Linked Group 1) 3 mL, Intracatheter, PRN, Other, peripheral line flush, Starting on Fri08/17/19 at 1825, Until Ofelia 08/19/19 at 1646, Flush after each use and blood draws. 1957 ($ Given - Provider: Vane Ferrera RN)2112 ($ Given - Provider: Vane Ferrera RN) bupivacaine PF (MARCAINE PF) 0.25 % injection (CANCELED) PRN, Starting on Fri08/17/19 at 1045, Until Fri08/17/19 at 1109, Intra-op 1045 ($ Given - Provider: Chloe Kent MD) bupivacaine PF (MARCAINE PF) 0.25 % injection (CANCELED) PRN, Starting on Fri08/17/19 at 1046, Until Fri08/17/19 at 1109, Intra-op 1046 ($ Given - Provider: Chloe Kent MD) fentaNYL (PF) (SUBLIMAZE) injection 25 mcg (CANCELED) 25 mcg, Intravenous, EVERY 10 MIN PRN, Mild Pain, 4 doses, Starting on Fri08/17/19 at 1111, Until Fri08/17/19 at 1756, Maximum total of 4 doses. If patient reaches max total dose, please consult anesthesiologist prior to further administration of pain meds. Hold pain meds if there are signs of hypoventilation., PACU 1317 ($ Given - Provider: Karie Crane, ROSEMARY)1327 ($ Given - Provider: Karie Crane RN) fentaNYL (PF) (SUBLIMAZE) injection 50 mcg (CANCELED) 50 mcg, Intravenous, EVERY 10 MIN PRN, Severe Pain, 4 doses, Starting on Fri08/17/19 at 1111, Until Fri08/17/19 at 1756, Maximum total of 4 doses If patient reaches max total dose, please consult anesthesiologist prior to further administration of pain meds. Hold pain meds if there are signs of hypoventilation., PACU 1144 ($ Given - Provider: Maria Del Carmen Puri RN)1215 ($ Given - Provider: Maria Del Carmen Puri RN)1447 ($ Given - Provider: Maria Del Carmen Puri RN) lidocaine 1% - EPINEPHrine 1:100,000 injection (CANCELED) PRN, Starting on Fri08/17/19 at 1045, Until Fri08/17/19 at 1109, Intra-op 1045 ($ Given - Provider: Chloe Kent MD) morphine injection 4 mg (CANCELED)(Linked Group 2) 4 mg, Intravenous, EVERY 3 HOURS PRN, Severe Pain, Starting on Fri08/17/19 at 1301, Until Ofelia 08/19/19 at 0605, Use IV option if patient is unable to take PO medications or if PO medications are ineffective, Allow a repeat dose for severe pain? No 1314 ($ Given - Provider: Karie Crane RN)1955 ($ Given - Provider: Vane Ferrera RN)2356 ($ Given - Provider: Vane Ferrera RN) 0252 ($ Given - Provider: Vane Ferrera RN)0638 ($ Given - Provider: Vane Ferrera RN)1058 ($ Given - Provider: Yanni Javier RN) oxyCODONE (immediate release) (ROXICODONE) tablet 10 mg (CANCELED) 10 mg, Oral, EVERY 4 HOURS PRN, Severe Pain, Starting on Fri08/17/19 at 1301, Until Fri08/18/19 at 0716, Allow a repeat dose for severe pain? No 1304 ($ Given - Provider: Karie Crane RN)1700 ($ Given - Provider: Maria Del Carmen Puri RN)2110 ($ Given - Provider: Vane Ferrera RN) 0048 ($ Given - Provider: Vane Ferrera RN)0537 ($ Given - Provider: Vane Ferrera, ROSEMARY) oxyCODONE (immediate release) (ROXICODONE) tablet 10 mg(Linked Group 3) 10 mg, Oral, EVERY 4 HOURS PRN, Severe Pain, Starting on Fri08/18/19 at 0716, Until Ofelia 08/19/19 at 1646 1236 ($ Given - Provider: Yanni Javier, ROSEMARY) oxyCODONE (immediate release) (ROXICODONE) tablet 5 mg(Linked Group 3) 5 mg, Oral, EVERY 4 HOURS PRN, Moderate Pain, Starting on Fri08/18/19 at 0716, Until Ofelia 08/19/19 at 1646 1236 (See Alternative - Provider: Yanni Javier, ROSEMARY) prochlorperazine (COMPAZINE) injection 10 mg (CANCELED) 10 mg, Intravenous, ONCE PRN, Nausea/Vomiting, Starting on Fri08/17/19 at 1111, Until Fri08/17/19 at 1756, First choice, PACU 1705 ($ Given - Provider: Maria Del Carmen Puri RN) Linked Groups Order Group 1: SALINE LOCK, INSERT AND MAINTAIN (CANCELED) Routine, CONTINUOUS, Starting on Fri08/17/19 at 1830, Until Specified, New collection And 0.9% NaCl injection 3 mLJump to med 3 mL, Intracatheter, EVERY 8 HOURS, First dose on Fri08/17/19 at 2200, Until Discontinued And 0.9% NaCl injection 3 mLJump to med 3 mL, Intracatheter, PRN, Other, peripheral line flush, Starting on Fri08/17/19 at 1825, Until Fri08/19/19 at 1646, Flush after each use and blood draws. Group 2: morphine injection 2 mg (CANCELED) 2 mg, Intravenous, EVERY 3 HOURS PRN, Moderate Pain, Starting on Fri08/17/19 at 1301, Until Fri08/19/19 at 0605, Use IV option if patient is unable to take PO medications or if PO medications are ineffective Or morphine injection 4 mg (CANCELED)Jump to med 4 mg, Intravenous, EVERY 3 HOURS PRN, Severe Pain, Starting on Fri08/17/19 at 1301, Until Fri08/19/19 at 0605, Use IV option if patient is unable to take PO medications or if PO medications are ineffective, Allow a repeat dose for severe pain? No Group 3: oxyCODONE (immediate release) (ROXICODONE) tablet 5 mgJump to med 5 mg, Oral, EVERY 4 HOURS PRN, Moderate Pain, Starting on Fri08/18/19 at 0716, Until Ofelia 08/19/19 at 1646 Or oxyCODONE (immediate release) (ROXICODONE) tablet 10 mgJump to med 10 mg, Oral, EVERY 4 HOURS PRN, Severe Pain, Starting on Fri08/18/19 at 0716, Until Ofelia 08/19/19 at 1646 documented in this encounter Care Teams Patient Accounts Coordinator Relationship Specialty Start Date End Date Ran Nuñez MD [address] [place] [address] PCP - General Family Medicine 03/22/19 12/22/20 Hillary Apple MD [address] [place] [id number] Hematology and Oncology 03/17/19 Bill Ferrera MD [address] [place] [id number] Hematology and Oncology 03/17/19 08/27/21 [place] [address] [place] [id number] Hematology and Oncology 03/17/19 [place] [address] [place] [id number] Hematology and Oncology 03/17/19 09/29/19 Karie Jones, ROSEMARY Registered Nurse 03/17/19 09/21/19 Maryjo Reinoso, FRUIT OR NUT FARM WORKER Measurement Supervisor 03/17/19 Madyson Clay, PharmD 03/17/19 Dana Lala, MUCKER OPERATOR-STAFFING ANALYST [address] [place] [address] Oncology 03/17/19 Mckinley Silver PA-C [address] [place] [address] Physician Raw Stock Dyeing Machine Tender 03/17/19 09/08/19 Tiffanie Mcpherson, MUCKER OPERATOR-CONSTRUCTION MANAGEMENT ASSISTANT [address] [id number] Family Medicine 03/17/19 Stephanie Mahoney, RN Registered Nurse 03/17/19 10/29/21 Alycia Galvan, ROSEMARY 03/17/19 10/29/21 Cesar Tavares MD [address] [place] [id number] Referring Physician Medical Oncology 03/23/19 Karie Jones, RN Registered Nurse 06/08/19 10/29/21 documented as of this encounter
--- OUTSIDE RECORDS SUMMARY | 2024-08-18 00:33 | XMS_ITS | Encounter Summary ---
Author Organization [facility] Address [address] [place] [address] Care Team Providers Care Hothouse Worker Name Role Phone Hillary Apple MD Unavailable [phone] Bill Ferrera MD Unavailable [phone] Tony Dumont MD Unavailable [phone] Shalini Segal MD Unavailable [phone] Karie Jones RN Unavailable Unavailable Maryjo Reinoso LCSW Unavailable Unavailable Madyson Clay PharmD Unavailable Unavaila Dana Galicia PIANO REFINISHER-AIRPORT OPERATIONS OFFICER Unavailable [phone] Mckinley SilverC Unavailable Unavail able PatrickTiffanie hammer APRN-LIME KILN WORKER HELPER Unavailable [phone] Stephanie Mahoney RN Unavailable Unavailable Alycia Galvan RN Unavailable UnavailRan Mejía MD Primary Care Provider Cesar Tavares MD Unavailable [phone] Karie Jones RN Unavailable Unavailable Reason for Visit * Oncology Prior Authorization (Routine) - Closed Specialty Diagnoses / Procedures Referred By Contac t Referred To Contact Diagnoses Diffuse large B-cell lymphoma, unspecified body region (HCC) Procedures NE ALTEPLASE RECOMBINANT Patrick, Tiffanie Seymour APRN-LIME KILN WORKER HELPER [address] [place] [address] [facility] [address] [place] [address] Referral ID Status Reason Start Date Expiration Date Visits Re quested Visits Authorized [id number] Closed 05/24/2019 11/20/2019 1 1 Encounter Details Date Type Department Care Team (Latest Contact Info) Description 08/26/2019 12:46 PM TELEPHONE COIN BOX COLLECTOR - 08/26/2019 11:59 PM TELEPHONE COIN BOX COLLECTOR Hospital Encounter [facility] [address] [place] [address] Tiffanie Nguyen, PIANO REFINISHER-LIME KILN WORKER HELPER [address] [place] [address] Discharge Disposition: Home or Self Care Social [...] Reading Time Taken Comments Blood Pressure 113/67 08/26/2019 12:56 PM TELEPHONE COIN BOX COLLECTOR Pulse 74 08/26/2019 12:56 PM TELEPHONE COIN BOX COLLECTOR Temperature 36.8 ??C (98.2 ??F) 08/26/2019 1 2:56 PM TELEPHONE COIN BOX COLLECTOR Respiratory Rate 18 08/26/2019 12:5 6 PM TELEPHONE COIN BOX COLLECTOR Oxygen Saturation 98% 08/26/2019 12: 56 PM TELEPHONE COIN BOX COLLECTOR Inhaled Oxygen Concentration - - Weight 119.8 kg (264 lb 0.8 oz) 020 12:56 PM TELEPHONE COIN BOX COLLECTOR Height - - Body Mass Index 40.75 08/26/2019 12:03 PM TELEPHONE COIN BOX COLLECTOR documented in this encounter Functional Status Functional [...] this encounter Progress Notes * Patrick Lara, JOSE DAVID-LIME KILN WORKER HELPER - 08/26/2019 8:44 AM CST Patient Identifiers Marcello Guillen is a 49 year old male with 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 Still having pain with activity but is requiring less frequent pain medication. Saw Dr. Kent prior to visit Wounds healing well, are pruritic Review of Systems A comprehensive 12 point [...] tablet by mouth 2 times daily ??? allopurinol (ZYLOPRIM) 300 MG tablet Take [...] every 4 hours as needed for Pain ??? penicillin [...] as needed Current Facility-Administered Medications Medication ??? heparin lock flush injection 500 Units Allergies: NKA Vitals Vitals: 08/26/19 1256 BP: 113/67 Pulse: 74 Resp: 18 Temp: 98.2 ??F SpO2: 98% Weight: 119.8 kg (264 lb 0.8 oz) Wt Readings from Last 3 Encounters: 08/26/19 119.8 kg (264 lb 0.8 oz) 08/26/19 117.5 kg (259 lb) 08/17/19 120.7 kg (266 lb) Physical Exam Physical Examination: General appearance [...] murmurs, rubs, clicks or gallops Abdomen - splenectomy wounds healing well Skin - normal coloration and turgor, no rashes, no suspicious skin lesions noted Labs Recent Labs Component Name 08/26/19 1345 08/19/19 0542 08/18/19 0555 08/11/19 1116 WBC 6.8 8.8 10.6* 2.3* RBC 4.13* 3.97* 3.86* 3.88* HGB 12.2* 12.1* 11.7* 11.6* HCT 36.1* 34.7* 33.3* 33.6* MCV 87.4 87.4 86.3 86.6 MCH 29.5 30.5 30.3 29.9 MCHC 33.8 34.9 35.1 34.5 PLTCOUNT 628* 161 98* 60* RDWSD 42.0 43.5 41.3 44.5 RDW 13.1 13.8 13.5 14.3 MPV 9.7 10.6 10.6 9.5 NRBCABS 0.00 0.00 0.00 0.00 NRBCAUTOPCT 0.0 0.0 0.0 0.0 NEUTPCT 68.3 75.3* - 61.9 LYMPHSPCT 11.9* 8.4* - 18.4* MONOPCT 10.0 13.4 - 12.4 EOSPCT 7.4* 1.7 - 5.6 BASOPCT 2.1* 0.7 - 1.3 IMMGRANSPCT 0.3 0.5 - 0.4 NEUTABS 4.6 6.6 8.06* 1.5* LYMPHS 0.8 0.7* 1.17 0.4* MONO 0.68* 1.17* 1.38* 0.29 EOS 0.50* 0.15 - 0.13 BASO 0.14* 0.06 - 0.03 TOTCELLCNT - - 100 - Recent Labs Component Name 08/26/19134408/19/19 0542 08/18/19 0555 BUN 11 10 9 CREATININE 0.9 1.0 0.9 NA 141 143 141 POTASSIUM 4.7* 3.7 4.0 CL 107 108* 107 CO2 23 26 22 GLU 83 89 100 CALCIUM 9.8 9.2 8.8 PROT 7.0 5.7* 5.4* ALB 3.4 3.6 3.5 TBILI 0.2 0.4 0.4 ALKPHOS 108 68 65 ALT 48 35 40 AST 31 29 31 ANIONGAP 16 13 16 BCR 12 10 10 OSMOLALITY 291 295 291 AGRATIO 0.9* 1.7 1.8 EGFR >60 >60 >60 Recent Labs Component Name 08/26/19134408/19/19 0542 08/18/19 0555 MAGNESIUM 1.9 1.7 1.7 Recent Labs Component Name 08/26/19134408/19/19 0542 08/18/19 0555 PHOS 3.2 2.0* 3.1 LDH Total Date Value Ref Range Status [...] will need until able to be re-vaccinated) -IVIG 0.4 g/kg given 08/19/19 to supplement immune system -for DVT ppx: continue ASA 81 mg daily and lovenox 40 mg daily Restricted airway disease -FEV1 low at 58, saw Dr. Francis today -has had asthma since he was a kid, but never used inhaler regularly -asymptomatic, no treatment necessary and OK to proceed with transplant (BEAM). No need to repeat PFTs or consult pulm unless problems arise and he becomes symptomatic. Arthritis -on diclofenac BID -arthritic pain worsened since stopping marijuana, using more [place] (3-4/day) ?? Cardiac History -historical a. Fib,notes are unclear but seems to have been resolved for multiple years. This was along time ago, will need to follow pre-transplant ?? Anxiety/Depression -increased agitation/mood change after trying to stop marijuana use -lexapro 10 mg daily ?? Marijuana Drug Use -continues to be positive (07/26/19), repeated discussions on importance of avoiding drug use.?? [facility] PHONE COIN BOX COLLECTOR documented in this encounter Plan of Treatment Upcoming Encounters Date Type Department Care Team (Late st Contact Info) Description 08/26/2024 11:00 AM TELEPHONE COIN BOX COLLECTOR Office Visit [facility] - Pulmonology [address] [place] [address], [place] [address] Andrew Francis MD [address] [place] [address] [address] DIV OF PULMONARY/[place] [address] documented as of this encounter Procedures Procedure Name Priority Date/Time Associated Diagnosis Comments CBC W AUTO DIFFERENTIAL STAT 08/26/2019 1:45 PM TELEPHONE COIN BOX COLLECTOR Diffuse large B-cell lymphoma, unspecified body region (HCC) COMPREHENSIVE METABOLIC PANEL STAT 08/26/2019 1:45 PM TELEPHONE COIN BOX COLLECTOR Diffuse large B-cell lymphoma, unspecified body region (HCC) PHOSPHORUS BLOOD STAT 08/26/2019 1:45 PM TELEPHONE COIN BOX COLLECTOR Diffuse large B-cell lymphoma, unspecified body region (HCC) MAGNESIUM BLOOD STAT 08/26/2019 1:45 PM TELEPHONE COIN BOX COLLECTOR Diffuse large B-cell lymphoma, unspecified body region (HCC) documented in this encounter Results * PHOSPHORUS BLOOD (08/26/2019 1:45 PM TELEPHONE COIN BOX COLLECTOR) Phosphorus 3.2 2.3 - 4.7 mg/dL 08/26/2019 2:14 PM TELEPHONE COIN BOX COLLECTOR [facility] Blood BLOOD SPECIMEN / Unknown Venipuncture / Unknown 08/26/2019 1:45 PM TELEPHONE COIN BOX COLLECTOR 08/26/2019 1:48 PM TELEPHONE COIN BOX COLLECTOR Tiffanie Nguyen PIANO REFINISHER-LIME KILN WORKER HELPER LAB - CHEMISTRY ORDERABLES [address] [phone] * MAGNESIUM BLOOD (08/26/2019 1:45 PM TELEPHONE COIN BOX COLLECTOR) Magnesium 1.9 1.6 - 2.6 mg/dL 08/26/2019 2:14 PM TELEPHONE COIN BOX COLLECTOR [facility] Blood BLOOD SPECIMEN / Unknown Venipuncture / Unknown 08/26/2019 1:45 PM TELEPHONE COIN BOX COLLECTOR 08/26/2019 1:48 PM TELEPHONE COIN BOX COLLECTOR Tiffanie Nguyen PIANO REFINISHER-LIME KILN WORKER HELPER LAB - CHEMISTRY ORDERABLES [address] [phone] * (ABNORMAL) CBC W AUTO DIFFERENTIAL (08/26/2019 1:45 PM TELEPHONE COIN BOX COLLECTOR) WBC 6.8 3.5 - 10.5 10? 3 /uL 08/26/2019 1:52 PM [facility] RBC 4.13(L) 4.30 - 5.70 10? 6 /uL 08/26/2019 1:52 PM [facility] Hemoglobin 12.2(L) 13.5 - 17.5 g/dL 08/26/2019 1:52 PM [facility] Hematocrit 36.1(L) 39.0 - 50.0 % 08/26/2019 1:52 PM [facility] MCV 87.4 81.0 - 97.0 fL 08/26/2019 1:52 PM [facility] MCH 29.5 28.0 - 34.0 pg 08/26/2019 1:52 PM [facility] MCHC 33.8 32.0 - 36.0 g/dL 08/26/2019 1:52 PM [facility] Platelet Count 628(H) 150 - 400 10? 3 /uL 08/26/2019 1:52 PM [facility] RDW-SD 42.0 36.0 - 50.0 fL 08/26/2019 1:52 PM [facility] RDW-CV 13.1 11.2 - 14.8 % 08/26/2019 1:52 PM [facility] MPV 9.7 9.3 - 12.8 fL 08/26/2019 1:52 PM [facility] nRBC Absolute 0.00 0 10? 3 /uL 08/26/2019 1:52 PM [facility] nRBC Auto 0.0 0 /100 WBC 08/26/2019 1:52 PM [facility] Neutrophils % 68.3 35.0 - 70.0 % 08/26/2019 1:52 PM [facility] Lymphocytes % 11.9(L) 19.7 - 55.1 % 08/26/2019 1:52 PM [facility] Monocytes % 10.0 3.0 - 15.0 % 08/26/2019 1:52 PM [facility] Eosinophils % 7.4(H) 0.0 - 6.0 % 08/26/2019 1:52 PM [facility] Basophil % 2.1(H) 0.0 - 1.5 % 08/26/2019 1:52 PM [facility] Neutrophils Absolute 4.6 1.6 - 7.0 10? 3 /uL 08/26/2019 1:52 PM [facility] Lymphocyte Absolute 0.8 0.8 - 2.9 10? 3 /uL 08/26/2019 1:52 PM [facility] Monocytes Absolute 0.68(H) 0.14 - 0.66 10? 3 /uL 08/26/2019 1:52 PM [facility] Eosinophils Absolute 0.50(H) 0.00 - 0.45 10? 3 /uL 08/26/2019 1:52 PM [facility] Basophils Absolute 0.14(H) 0.00 - 0.06 10? 3 /uL 08/26/2019 1:52 PM [facility] Immature Granulocytes % 0.3 0.0 - 1.0 % 08/26/2019 1:52 PM [facility] Blood BLOOD SPECIMEN / Unknown Venipuncture / Unknown 08/26/2019 1:45 PM TELEPHONE COIN BOX COLLECTOR 08/26/2019 1:48 PM TELEPHONE COIN BOX COLLECTOR Tiffanie Nguyen PIANO REFINISHER-LIME KILN WORKER HELPER LAB - HEMATOLOG Y ORDERABLES [address] [phone] * (ABNORMAL) COMPREHENSIVE METABOLIC PANEL (08/26/2019 1:45 PM TELEPHONE COIN BOX COLLECTOR) BUN 11 7 - 26 mg/dL 08/26/2019 2:14 PM [facility] Creatinine 0.9 0.6 - 1.2 mg/dL 08/26/2019 2:14 PM [facility] Sodium 141 136 - 145 mmol/L 08/26/2019 2:14 PM [facility] Potassium 4.7(H) 3.5 - 4.5 mmol/L 08/26/2019 2:14 PM [facility] Chloride 107 98 - 107 mmol/L 08/26/2019 2:14 PM [facility] CO2 23 22 - 29 mmol/L 08/26/2019 2:14 PM [facility] Glucose 83 70 - 115 mg/dL 08/26/2019 2:14 PM [facility] Calcium 9.8 8.4 - 10.2 mg/dL 08/26/2019 2:14 PM [facility] Protein Total 7.0 6.0 - 8.3 g/dL 08/26/2019 2:14 PM [facility] Albumin 3.4 3.4 - 5.0 g/dL 08/26/2019 2:14 PM [facility] Bilirubin Total 0.2 0.2 - 1.2 mg/dL 08/26/2019 2:14 PM [facility] Alkaline Phosphatase 108 40 - 150 Units/L 08/26/2019 2:14 PM [facility] ALT 48 0 - 55 Units/L 08/26/2019 2:14 PM [facility] AST 31 5 - 34 Units/L 08/26/2019 2:14 PM [facility] Anion Gap 16 8 - 18 08/26/2019 2:14 PM [facility] BUN/Creatinine Ratio 12 7 - 23 08/26/2019 2:14 PM [facility] Osmolality Calculated 291 270 - 300 mOsm/kg 08/26/2019 2:14 PM [facility] Albumin/Globulin Ratio 0.9(L) 1.1 - 2.3 08/26/2019 2:14 PM [facility] eGFR >60 >60 mL/min/1.7 3 m2 08/26/2019 2:14 PM [facility] Blood BLOOD SPECIMEN / Unknown Venipuncture / Unknown 08/26/2019 1:45 PM TELEPHONE COIN BOX COLLECTOR 08/26/2019 1:48 PM [facility] Tiffanie Nguyen PIANO REFINISHER-LIME KILN WORKER HELPER LAB - CHEMISTRY ORDERABLES [facility] [address] [phone] documented in this encounter Visit Diagnoses Diagnosis Diffuse large B-cell lymphoma, unspecified body region (HCC)- Primary B-cell lymphoma, unspecified B-cell lymphoma type, unspecified body region (HCC) Anxiety Anxiety state, unspecified documented in this encounter Administered Medications Inactive Administered Medications - up to 3 most recent administrations Medication Order MAR Action Action Date Dose Rate Site heparin lock flush injection 500 Units 500 Units, Intracatheter, PRN, Other, Site maintenance, Starting on Ofelia 08/26/19 at 0813, Until Ofelia 08/26/19 at 2012 $ Given 08/26/2019 1:45 PM TELEPHONE COIN BOX COLLECTOR 500 Units documented in this encounter Care Teams Hothouse Worker Relationship Specialty Start Date End Date Ran Nuñez MD [address] [place] [address] PCP - General Family Medicine 03/22/19 12/22/20 Hillary Apple MD [address] [place] [address] Hematology and Oncology 03/17/19 Bill Ferrera MD [address] [place] [address] Hematology and Oncology 03/17/19 08/27/21 Tony Dumont MD [address] [place] [address] Hematology and Oncology 03/17/19 Shalini Segal MD [address] [place] [address] Hematology and Oncology 03/17/19 09/29/19 Karie Jones, ROSEMARY Registered Nurse 03/17/19 09/21/19 Maryjo Reinoso, REYNA Hadoop Java Developer 03/17/19 Madyson Clay, PharmD 03/17/19 Dana Lala, PIANO REFINISHER-AIRPORT OPERATIONS OFFICER [address] [place] [address] Oncology 03/17/19 Mckinley Silver PA-C [address] [place] [address] Physician Asphalt Paving Supervisor 03/17/19 09/08/19 Tiffanie Nguyen, PIANO REFINISHER-LIME KILN WORKER HELPER [address] [place] [address] Family Medicine 03/17/19 Stephanie Mahoney, RN Registered Nurse 03/17/19 10/29/21 Alycia Galvan, ROSEMARY 03/17/19 10/29/21 Cesar Tavares MD [address] [place] [address] [place] [id number] Referring Physician Medical Oncology 03/23/19 Karie Jones, RN Registered Nurse 06/08/19 10/29/21 documented as of this encounter
--- OUTSIDE RECORDS SUMMARY | 2024-08-18 00:33 | XMS_ITS | Encounter Summary ---
Author Organization [facility] Address [address] [place] [address] Care Team Providers Care Shop Blacksmith Name Role Phone Hillary Apple MD Unavailable [phone] Bill Ferrera MD Unavailable [phone] Tony Dumont MD Unavailable [phone] Shalini Segal MD Unavailable [phone] Karie Jones RN Unavailable Unavailable Maryjo Reinoso LCSW Unavailable Unavailable Madyson Clay PharmD Unavailable Unavaila Dana Galicia CLINICAL RESEARCH COORDINATOR-PATTERNATOR Unavailable [phone] Mckinley Silver-C Unavailable Unavail able PatrickTiffanie CLINICAL RESEARCH COORDINATOR-LOG MANAGER Unavailable [phone] Stephanie Mahoney RN Unavailable Unavailable Alycia Galvan RN Unavailable UnavailRan Mejía MD Primary Care Provider Cesar Tavares MD Unavailable Karie Jones RN Unavailable Unavailable Reason for Visit * Auth/Cert Specialty Diagnoses / Procedures Referred By Deng meraz Referred To Contact Diagnoses Non-Hodgkin's lymphoma of spleen, 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 Procedures LAPAROSCOPIC SPLENECTOMY Referral ID Status Reason Start Date Expiration Date Visits Re quested Visits Authorized [id number] 1 1 Encounter Details Date Type Department Care Team (Latest Contact Info) Description 08/17/2019 5:52 AM SHREDDED FILLER MACHINE WRAPPER LAYER - 08/19/2019 3:46 PM SHREDDED FILLER MACHINE WRAPPER LAYER Hospital Encounter [facility] [address] [address] Chloe Kent MD [address] OF [facility] [place] [address] Surgery General Discharge Disposition: Home or Self Care Social [...] Sign Reading Time Taken Comments Blood Pressure 133/85 08/19/2019 3:17 PM SHREDDED FILLER MACHINE WRAPPER LAYER Pulse 83 08/19/2019 3:17 PM SHREDDED FILLER MACHINE WRAPPER LAYER Temperature 36.9 ??C (98.4 ??F) 08/19/2019 11:[address] Respiratory Rate 20 08/19/2019 11:36 AM SHREDDED FILLER MACHINE WRAPPER LAYER Oxygen Saturation 98% 08/19/2019 3:17 PM SHREDDED FILLER MACHINE WRAPPER LAYER Inhaled Oxygen Concentration - - Weight 120.7 kg (266 lb) 08/17/2019 6:25 AM SHREDDED FILLER MACHINE WRAPPER LAYER Height 171.5 cm (5' 7.5 ) 08/17/2019 6:25 AM SHREDDED FILLER MACHINE WRAPPER LAYER Body Mass Index 41.05 08/17/2019 6:25 AM SHREDDED FILLER MACHINE WRAPPER LAYER documented in this encounter Functional Status Functional [...] PM CST Physician Discharge Summary Marcello Luis [id number] 49 year old 1970 Admit date: 08/17/2019 Discharge date and time: 08/19/2019 Admitting Physician: Chloe Kent MD Discharge Physician: Chloe Kent MD Admission Condition: stable Discharged Condition: stable Indication for Admission: non-Hodgkin's lymphoma s/p laparoscopic splenectomy Hospital Course: Mr. Marcello Luis is a 49-year-old male with hx of non-Hodgkin???s lymphoma treated with R-CHOP [id number] who presented to [facility] on 08/17/2019 for laparoscopic splenectomy. Patient underwent [...] Your Medications These medications were sent to [id number] - [address] [facility] [address] [facility] [address] [address] [address] , [facility] [address] ?? docusate sodium 100 MG capsule ?? [...] Contact information: [address] [place] [address] Chloe Kent MD . Specialties: General Surgery, Surgical Oncology Why: Your follow up appointment with surgeon is 08/26 in the [facility]. Please arrive early to have your labwork drawn before appointment Contact information: [address] [facility] [address] [facility] LAB OP DRAW STATION . Specialty: Laboratory Why: Please arrive early to have your labwork drawn before appointment with surgeon Contact information: [address] [facility] [address] Discharge Instructions None Signed: Asim Barron 08/19/2019 I have independently seen the patient and completed a physical exam. I have reviewed the patient's labs and imaging. I have reviewed the assessment and plan with the medical student. Edits have been made where indicated. Marcello Shannon MD August 19, 2019 5:32 PM DDED FILLER MACHINE WRAPPER LAYER documented in this encounter Medications at Time [...] without complications. Patient escorted out via wheelchair. DDED FILLER MACHINE WRAPPER LAYER * Onelia Phipps V - 08/19/2019 3:23 AM CST Problem: Pain/Discomfort Goal: Patient exhibits reduced pain/discomfort as evidenced by pain scores Outcome: Ongoing Patient's pain is managed with scheduled pain medication. He has not requested any additional PRN pain medication but was provided information and encouraged to report pain to nurse. Patient verbalized understanding. DDED FILLER MACHINE WRAPPER LAYER * Vania Crane OT - 08/18/2019 3:43 PM CST [facility] Physical Medicine and Rehabilitation Occupational Therapy Initial Evaluation Note Patient: Marcello Luis [facility] Record Number: [id number] Date of : 1970 Age: [age] year [...] WFL Upper extremity strength: BUE grossly WFL, junior web designer strength intact bilaterally Tone: No abnormal tone [...] contacted regarding patient status and/or discharge plan. Senior Software Quality Engineer Goal: Patient to be independent/baseline with functional [...] family in room. Vania Crane OT 08/18/2019 DDED FILLER MACHINE WRAPPER LAYER * Tiffanie Mcpherson, JOSE DAVID-LOG MANAGER - 08/18/2019 2:24 PM CST Patient Identifiers [...] [facility] DDED FILLER MACHINE WRAPPER LAYER * Evans Christieon Gunnar, PT - 08/18/2019 2:04 PM CST [facility] Physical Medicine and Rehabilitation Physical Therapy Initial Evaluation Note Patient: Marcello Luis Med Record Number: [id number] Date of : 1970 Age: [age] year [...] as pt. Is indep with functional mobility. Senior Software Quality Engineer Goal(s): Patient to be independent/baseline with functional [...] due to indep. Emi Christie, PT 08/18/2019 DDED FILLER MACHINE WRAPPER LAYER * Ava Pandya RN - 08/18/2019 10:28 [...] For any questions or needs please contact: Sea Captain Name/Phone number: Ava Pandya [place] ext. [phone] DDED FILLER MACHINE WRAPPER LAYER * Tom Lamar MD - 08/18/2019 7:15 AM CST [facility] Surgical Oncology Progress Note Admit: 08/17/2019 [...] ??F (37.1 ??C) Pulse: [74-94] 74 Resp: [-] 19 BP: (102-157)/(58-102) 102/86 Diet: DIET REGULAR [...] Tom Lamar MD PGY-3 08/18/2019 7:15 AM DDED FILLER MACHINE WRAPPER LAYER Associated attestation - Chloe Kent MD - 08/18/2019 6:08 PM SHREDDED FILLER MACHINE WRAPPER LAYER Patient was seen and examined with resident. [...] to reposition frequently to aid in comfort. DDED FILLER MACHINE WRAPPER LAYER * Thom Mcgill MD - 08/17/2019 8:55 [...] overall recovering well, continue post op care Thmo Mcgill MD 08/17/2019 8:55 PM DDED FILLER MACHINE WRAPPER LAYER documented in this encounter H&P Notes * Chloe Kent MD - 08/17/2019 5:36 AM CST [facility] Blue Surgery History and Physical Encounter Date: [...] lymphadenopathy. Dictated by Mary Ellen Ty MD (radiology aide). I, Dr. JIGNESH PECK M.D. have personally [...] is made to a PET/CT performed at [facility] on March 15, 2019. For [...] splenectomy Cefoxitin written for Consent obtained Christina Patel MD 08/17/2019 5:36 AM DDED FILLER MACHINE WRAPPER LAYER documented in this encounter OR Notes * Operative - Chloe Kent MD - 08/17/2019 11:36 AM CST NAME: MARCELLO LUIS : 1970 AGE: 49 PROC DATE: 08/17/2019 SEX: M SURGEON: Chloe Kent MD PREOPERATIVE DIAGNOSIS: Non-Hodgkin's lymphoma. POSTOPERATIVE DIAGNOSIS: Non-Hodgkin's lymphoma. PROCEDURE: Laparoscopic splenectomy. SURGEON: Chloe Kent M.D. LATH HAND: Christina Patel M.D. ANESTHESIA: GETA. FINDINGS: Enlarged [...] and therefore he was referred by his intensive care unit nurse/oncologist to undergo splenectomy. Risks, benefits and alternatives [...] for the entire procedure. Chloe Kent MD [id number] Doc ID: [id number] Voice Job ID: [id number] DDED FILLER MACHINE WRAPPER LAYER * Brief Op Note - Christina Patel MD - 08/17/2019 8:31 AM CST Brief Op Note Procedure: LAPAROSCOPIC SPLENECTOMY POSS OPEN Patient Name: Marcello Luis Date of Service: 08/17/2019 Pre-Op Diagnosis: C85.97 Post-Op Diagnosis: Same Surgeon(s) and Role: * Chloe Kent MD - Primary * Christina Patel MD - Resident - Assisting Panel Installer(s): Elton Cormier MS3 Anesthesia Type: general Complications: none Findings: splenomegaly EBL: 200 mL Urine Output : 150 mL IV Fluid Intake: crystalloid Drains: * No LDAs found * Specimen(s): Order Name Source Comment Collection Info Order Time PATHOLOGY TISSUE Spleen Pre-op diagnosis: C85.97 Collected By: Chloe Kent MD 08/17/2019 10:42 AM Christina Patel MD DDED FILLER MACHINE WRAPPER LAYER documented in this encounter Plan of Treatment Upcoming Encounters Date Type Department Care Team (Late st Contact Info) Description 08/26/2024 11:00 AM SHREDDED FILLER MACHINE WRAPPER LAYER Office Visit [facility] - Pulmonology [address] [facility] [address] [facility] [place] [address] Andrew Francis MD [facility] [facility] 2L DIV OF PULMONARY/[place] [address] documented as of this encounter Procedures Procedure Name Priority Date/Time Associated Diagnosis Comments CBC W AUTO DIFFERENTIAL AM Draw 08/19/2019 5:42 AM SHREDDED FILLER MACHINE WRAPPER LAYER COMPREHENSIVE METABOLIC PANEL AM Draw 08/19/2019 5:42 AM SHREDDED FILLER MACHINE WRAPPER LAYER PHOSPHORUS BLOOD Routine 08/19/2019 5:42 AM SHREDDED FILLER MACHINE WRAPPER LAYER MAGNESIUM BLOOD Routine 08/19/2019 5:42 AM SHREDDED FILLER MACHINE WRAPPER LAYER OT EVAL AND TREAT Routine 08/18/2019 6:4 1 AM SHREDDED FILLER MACHINE WRAPPER LAYER PT EVAL AND TREAT Routine 08/18/2019 6:4 1 AM SHREDDED FILLER MACHINE WRAPPER LAYER DIFFERENTIAL MANUAL AM Draw 08/18/2019 5 :55 AM SHREDDED FILLER MACHINE WRAPPER LAYER CBC W AUTO DIFFERENTIAL AM Draw 08/18/2019 5:55 AM SHREDDED FILLER MACHINE WRAPPER LAYER COMPREHENSIVE METABOLIC PANEL AM Draw 08/18/2019 5:55 AM SHREDDED FILLER MACHINE WRAPPER LAYER PHOSPHORUS BLOOD Routine 08/18/2019 5:55 AM SHREDDED FILLER MACHINE WRAPPER LAYER MAGNESIUM BLOOD Routine 08/18/2019 5:55 AM SHREDDED FILLER MACHINE WRAPPER LAYER GLUCOSE - POINT OF CARE Routine 08/18/2019 4:51 AM SHREDDED FILLER MACHINE WRAPPER LAYER GLUCOSE - POINT OF CARE Routine 08/18/2019 12:31 AM SHREDDED FILLER MACHINE WRAPPER LAYER GLUCOSE - POINT OF CARE Routine 08/17/2019 9:45 PM SHREDDED FILLER MACHINE WRAPPER LAYER LAB MISC TEST (NOT BLOOD) Routine 08/17/2019 12:55 PM SHREDDED FILLER MACHINE WRAPPER LAYER Lymphosarcoma of spleen (HCC) PATHOLOGY TISSUE Routine 08/17/2019 9:07 AM SHREDDED FILLER MACHINE WRAPPER LAYER Non-Hodgkin's lymphoma of spleen, unspecified non-Hodgkin lymphoma type (HCC) SD LAP,SPLENECTOMY 08/17/2019 8: 31 AM SHREDDED FILLER MACHINE WRAPPER LAYER Non-Hodgkin's lymphoma of spleen, unspecified non-Hodgkin lymphoma type (HCC) Special Needs Supine PREPARE RBC LEUKOREDUCED UNIT STAT 08/17/2019 6:58 AM SHREDDED FILLER MACHINE WRAPPER LAYER Preoperative examination TYPE + SCREEN PANEL STAT 08/17/2019 6 :45 AM SHREDDED FILLER MACHINE WRAPPER LAYER Preoperative examination documented in this encounter Results * (ABNORMAL) CBC WITH DIFFERENTIAL (09/09/2019 12:42 PM SHREDDED FILLER MACHINE WRAPPER LAYER) WBC 5.7 3.5 - 10.5 10? 3 /uL 09/09/2019 1:00 PM [facility] RBC 4.25(L) 4.30 - 5.70 10? 6 /uL 09/09/2019 1:00 PM [facility] Hemoglobin 12.7(L) 13.5 - 17.5 g/dL 09/09/2019 1:00 PM [facility] Hematocrit 37.8(L) 39.0 - 50.0 % 09/09/2019 1:00 PM [facility] MCV 88.9 81.0 - 97.0 fL 09/09/2019 1:00 PM [facility] MCH 29.9 28.0 - 34.0 pg 09/09/2019 1:00 PM [facility] MCHC 33.6 32.0 - 36.0 g/dL 09/09/2019 1:00 PM [facility] Platelet Count 489(H) 150 - 400 10? 3 /uL 09/09/2019 1:00 PM [facility] RDW-SD 46.2 36.0 - 50.0 fL 09/09/2019 1:00 PM [facility] RDW-CV 14.2 11.2 - 14.8 % 09/09/2019 1:00 PM [facility] MPV 10.6 9.3 - 12.8 fL 09/09/2019 1:00 PM [facility] nRBC Absolute 0.00 0 10? 3 /uL 09/09/2019 1:00 PM [facility] nRBC Auto 0.0 0 /100 WBC 09/09/2019 1:00 PM [facility] Neutrophils % 56.9 35.0 - 70.0 % 09/09/2019 1:00 PM [facility] Lymphocytes % 18.9(L) 19.7 - 55.1 % 09/09/2019 1:00 PM [facility] Monocytes % 11.0 3.0 - 15.0 % 09/09/2019 1:00 PM [facility] Eosinophils % 10.2(H) 0.0 - 6.0 % 09/09/2019 1:00 PM [facility] Basophil % 2.8(H) 0.0 - 1.5 % 09/09/2019 1:00 PM [facility] Neutrophils Absolute 3.3 1.6 - 7.0 10? 3 /uL 09/09/2019 1:00 PM [facility] Lymphocyte Absolute 1.1 0.8 - 2.9 10? 3 /uL 09/09/2019 1:00 PM [facility] Monocytes Absolute 0.63 0.14 - 0.66 10? 3 /uL 09/09/2019 1:00 PM [facility] Eosinophils Absolute 0.58(H) 0.00 - 0.45 10? 3 /uL 09/09/2019 1:00 PM [facility] Basophils Absolute 0.16(H) 0.00 - 0.06 10? 3 /uL 09/09/2019 1:00 PM [facility] Immature Granulocytes % 0.2 0.0 - 1.0 % 09/09/2019 1:00 PM [facility] Blood BLOOD SPECIMEN / Unknown Venipuncture / Unknown 09/09/2019 12:42 PM SHREDDED FILLER MACHINE WRAPPER LAYER 09/09/2019 12:50 PM SHREDDED FILLER MACHINE WRAPPER LAYER Debora Morgan CLINICAL RESEARCH COORDINATOR-LOG MANAGER LAB - HEMATOLOGY ORDERABLES [facility] [address] [phone] * (ABNORMAL) COMPREHENSIVE METABOLIC PANEL (09/09/2019 12:42 PM [facility]) BUN 12 7 - 26 mg/dL 09/09/2019 1:15 PM [facility] Creatinine 0.9 0.6 - 1.2 mg/dL 09/09/2019 1:15 PM [facility] Sodium 142 136 - 145 mmol/L 09/09/2019 1:15 PM [facility] Potassium 4.2 3.5 - 4.5 mmol/L 09/09/2019 1:15 PM [facility] Chloride 108(H) 98 - 107 mmol/L 09/09/2019 1:15 PM [facility] CO2 23 22 - 29 mmol/L 09/09/2019 1:15 PM [facility] Glucose 90 70 - 115 mg/dL 09/09/2019 1:15 PM [facility] Calcium 9.3 8.4 - 10.2 mg/dL 09/09/2019 1:15 PM [facility] Protein Total 6.5 6.0 - 8.3 g/dL 09/09/2019 1:15 PM [facility] Albumin 3.8 3.4 - 5.0 g/dL 09/09/2019 1:15 PM [facility] Bilirubin Total 0.2 0.2 - 1.2 mg/dL 09/09/2019 1:15 PM [facility] Alkaline Phosphatase 108 40 - 150 Units/L 09/09/2019 1:15 PM [facility] ALT 36 0 - 55 Units/L 09/09/2019 1:15 PM [facility] AST 20 5 - 34 Units/L 09/09/2019 1:15 PM [facility] Anion Gap 15 8 - 18 09/09/2019 1:15 PM [facility] BUN/Creatinine Ratio 13 7 - 23 09/09/2019 1:15 PM [facility] Osmolality Calculated 293 270 - 300 mOsm/kg 09/09/2019 1:15 PM [facility] Albumin/Globulin Ratio 1.4 1.1 - 2.3 09/09/2019 1:15 PM [facility] eGFR >60 >60 mL/min/1.7 3 m2 09/09/2019 1:15 PM [facility] Blood BLOOD SPECIMEN / Unknown Venipuncture / Unknown 09/09/2019 12:42 PM SHREDDED FILLER MACHINE WRAPPER LAYER 09/09/2019 12:50 PM SHREDDED FILLER MACHINE WRAPPER LAYER Debora Morgan CLINICAL RESEARCH COORDINATOR-LOG MANAGER LAB - CHEMISTRY ORDERABLES Performing Organization Address [facility]/ZIP Co de Phone Number [address] [phone] * (ABNORMAL) PHOSPHORUS BLOOD (08/19/2019 5:42 AM SHREDDED FILLER MACHINE WRAPPER LAYER) Phosphorus 2.0(L) 2.3 - 4.7 mg/dL 08/19/2019 6:34 AM SHREDDED FILLER MACHINE WRAPPER LAYER [facility] Blood BLOOD SPECIMEN / Unknown Lab Venipuncture / Unknown 08/19/2019 5:42 AM SHREDDED FILLER MACHINE WRAPPER LAYER 08/19/2019 5:58 AM SHREDDED FILLER MACHINE WRAPPER LAYER Marcello Shannon MD LAB - CHEMISTRY [place] Performing Organization Address [facility]/ZIP Co de Phone Number [address] [phone] * MAGNESIUM BLOOD (08/19/2019 5:42 AM SHREDDED FILLER MACHINE WRAPPER LAYER) Magnesium 1.7 1.6 - 2.6 mg/dL 08/19/2019 6:34 AM SHREDDED FILLER MACHINE WRAPPER LAYER [facility] Blood BLOOD SPECIMEN / Unknown Lab Venipuncture / Unknown 08/19/2019 5:42 AM SHREDDED FILLER MACHINE WRAPPER LAYER 08/19/2019 5:58 AM SHREDDED FILLER MACHINE WRAPPER LAYER Marcello Shannon MD LAB - CHEMISTRY [place] Performing Organization Address City/[facility]/ZIP Co de Phone Number [address] [phone] * (ABNORMAL) CBC W AUTO DIFFERENTIAL (08/19/2019 5:42 AM SHREDDED FILLER MACHINE WRAPPER LAYER) WBC 8.8 3.5 - 10.5 10? 3 /uL 08/19/2019 6:28 AM SHREDDED FILLER MACHINE WRAPPER LAYER [facility] RBC 3.97(L) 4.30 - 5.70 10? 6 /uL 08/19/2019 6:28 AM [facility] Hemoglobin 12.1(L) 13.5 - 17.5 g/dL 08/19/2019 6:28 AM [facility] Hematocrit 34.7(L) 39.0 - 50.0 % 08/19/2019 6:28 AM [facility] MCV 87.4 81.0 - 97.0 fL 08/19/2019 6:28 AM [facility] MCH 30.5 28.0 - 34.0 pg 08/19/2019 6:28 AM [facility] MCHC 34.9 32.0 - 36.0 g/dL 08/19/2019 6:28 AM [facility] Platelet Count 161 150 - 400 10? 3 /uL 08/19/2019 6:28 AM [facility] Comment:All CBC parameters h ave been checked. RDW-SD 43.5 36.0 - 50.0 fL 08/19/2019 6:28 AM [facility] RDW-CV 13.8 11.2 - 14.8 % 08/19/2019 6:28 AM [facility] MPV 10.6 9.3 - 12.8 fL 08/19/2019 6:28 AM [facility] nRBC Absolute 0.00 0 10? 3 /uL 08/19/2019 6:28 AM [facility] nRBC Auto 0.0 0 /100 WBC 08/19/2019 6:28 AM [facility] Neutrophils % 75.3(H) 35.0 - 70.0 % 08/19/2019 6:28 AM [facility] Lymphocytes % 8.4(L) 19.7 - 55.1 % 08/19/2019 6:28 AM [facility] Monocytes % 13.4 3.0 - 15.0 % 08/19/2019 6:28 AM [facility] Eosinophils % 1.7 0.0 - 6.0 % 08/19/2019 6:28 AM [facility] Basophil % 0.7 0.0 - 1.5 % 08/19/2019 6:28 AM [facility] Neutrophils Absolute 6.6 1.6 - 7.0 10? 3 /uL 08/19/2019 6:28 AM [facility] Lymphocyte Absolute 0.7(L) 0.8 - 2.9 10? 3 /uL 08/19/2019 6:28 AM [facility] Monocytes Absolute 1.17(H) 0.14 - 0.66 10? 3 /uL 08/19/2019 6:28 AM [facility] Eosinophils Absolute 0.15 0.00 - 0.45 10? 3 /uL 08/19/2019 6:28 AM [facility] Basophils Absolute 0.06 0.00 - 0.06 10? 3 /uL 08/19/2019 6:28 AM [facility] Immature Granulocytes % 0.5 0.0 - 1.0 % 08/19/2019 6:28 AM [facility] Blood BLOOD SPECIMEN / Unknown Lab Venipuncture / Unknown 08/19/2019 5:42 AM SHREDDED FILLER MACHINE WRAPPER LAYER 08/19/2019 5:58 AM [facility] Marcello Shannon MD LAB - HEMATOLOGY ORD ERABLES Performing Organization Address [facility] Co de Phone Number [address] [phone] * (ABNORMAL) COMPREHENSIVE METABOLIC PANEL (08/19/2019 5:42 AM SHREDDED FILLER MACHINE WRAPPER LAYER) BUN 10 7 - 26 mg/dL 08/19/2019 6:34 AM [facility] Creatinine 1.0 0.6 - 1.2 mg/dL 08/19/2019 6:34 AM [facility] Sodium 143 136 - 145 mmol/L 08/19/2019 6:34 AM [facility] Potassium 3.7 3.5 - 4.5 mmol/L 08/19/2019 6:34 AM [facility] Chloride 108(H) 98 - 107 mmol/L 08/19/2019 6:34 AM [facility] CO2 26 22 - 29 mmol/L 08/19/2019 6:34 AM [facility] Glucose 89 70 - 115 mg/dL 08/19/2019 6:34 AM [facility] Calcium 9.2 8.4 - 10.2 mg/dL 08/19/2019 6:34 AM [facility] Protein Total 5.7(L) 6.0 - 8.3 g/dL 08/19/2019 6:34 AM [facility] Albumin 3.6 3.4 - 5.0 g/dL 08/19/2019 6:34 AM [facility] Bilirubin Total 0.4 0.2 - 1.2 mg/dL 08/19/2019 6:34 AM [facility] Alkaline Phosphatase 68 40 - 150 Units/L 08/19/2019 6:34 AM [facility] ALT 35 0 - 55 Units/L 08/19/2019 6:34 AM [facility] AST 29 5 - 34 Units/L 08/19/2019 6:34 AM [facility] Anion Gap 13 8 - 18 08/19/2019 6:34 AM [facility] BUN/Creatinine Ratio 10 7 - 23 08/19/2019 6:34 AM [facility] Osmolality Calculated 295 270 - 300 mOsm/kg 08/19/2019 6:34 AM [facility] Albumin/Globulin Ratio 1.7 1.1 - 2.3 08/19/2019 6:34 AM [facility] eGFR >60 >60 mL/min/1.7 3 m2 08/19/2019 6:34 AM [facility] Blood BLOOD SPECIMEN / Unknown Lab Venipuncture / Unknown 08/19/2019 5:42 AM SHREDDED FILLER MACHINE WRAPPER LAYER 08/19/2019 5:58 AM [facility] Marcello Shannon MD LAB - CHEMISTRY [place] [facility] Organization Address City/State/[facility] Co de Phone Number [address] [phone] * (ABNORMAL) DIFFERENTIAL MANUAL (08/18/2019 5:55 AM [facility]) WBC (corrected for NRBC) 10.6 10? 3 /uL 08/18/2019 8:04 AM [facility] Total Cell Count 100 08/18/2019 8:04 AM [facility] Neutrophils Absolute Manual 8.06(H) 1.60 - 7.00 10? 3 /uL 08/18/2019 8:04 AM [facility] Comment:(BANDS+SEGS) x WBC = NEUT # (ANC) Lymphocyte Absolute Manual 1.17 0.80 - 2.90 10? 3 /uL 08/18/2019 8:04 AM [facility] Monocytes Absolute Manual 1.38(H) 0.14 - 0.66 10? 3 /uL 08/18/2019 8:04 AM [facility] Neutrophil % Manual 76(H) 30 - 60 % 08/18/2019 8:04 AM [facility] Lymphocyte % Manual 11(L) 20 - 45 % 08/18/2019 8:04 AM [facility] Monocytes % Manual 13(H) 2 - 10 % 08/18/2019 8:04 AM [facility] Platelet Estimate Decreased( A) Adequate 08/18/2019 8:04 AM [facility] RBC Morphology Normal 08/18/2019 8:04 AM [facility] Blood BLOOD SPECIMEN / Unknown Lab Venipuncture / Unknown 08/18/2019 5:55 AM SHREDDED FILLER MACHINE WRAPPER LAYER 08/18/2019 5:59 AM SHREDDED FILLER MACHINE WRAPPER LAYER Marcello Shannon MD LAB - HEMATOLOGY ORD ERABLES [address] [phone] * PHOSPHORUS BLOOD (08/18/2019 5:55 AM SHREDDED FILLER MACHINE WRAPPER LAYER) Phosphorus 3.1 2.3 - 4.7 mg/dL 08/18/2019 6:27 AM [facility] Blood BLOOD SPECIMEN / Unknown Lab Venipuncture / Unknown 08/18/2019 5:55 AM SHREDDED FILLER MACHINE WRAPPER LAYER 08/18/2019 5:59 AM SHREDDED FILLER MACHINE WRAPPER LAYER Marcello Shannon MD LAB - CHEMISTRY ORDE RABFLO [address] [phone] * MAGNESIUM BLOOD (08/18/2019 5:55 AM SHREDDED FILLER MACHINE WRAPPER LAYER) Magnesium 1.7 1.6 - 2.6 mg/dL 08/18/2019 6:27 AM [facility] Blood BLOOD SPECIMEN / Unknown Lab Venipuncture / Unknown 08/18/2019 5:55 AM SHREDDED FILLER MACHINE WRAPPER LAYER 08/18/2019 5:59 AM [facility] Marcello Shannon MD LAB - CHEMISTRY [place] [address] [phone] * (ABNORMAL) CBC W AUTO DIFFERENTIAL (08/18/2019 5:55 AM [facility]) WBC 10.6(H) 3.5 - 10.5 10? 3 /uL 08/18/2019 6:08 AM [facility] RBC 3.86(L) 4.30 - 5.70 10? 6 /uL 08/18/2019 6:08 AM [facility] Hemoglobin 11.7(L) 13.5 - 17.5 g/dL 08/18/2019 6:08 AM [facility] Hematocrit 33.3(L) 39.0 - 50.0 % 08/18/2019 6:08 AM [facility] MCV 86.3 81.0 - 97.0 fL 08/18/2019 6:08 AM [facility] MCH 30.3 28.0 - 34.0 pg 08/18/2019 6:08 AM [facility] MCHC 35.1 32.0 - 36.0 g/dL 08/18/2019 6:08 AM [facility] Platelet Count 98(L) 150 - 400 10? 3 /uL 08/18/2019 6:08 AM [facility] RDW-SD 41.3 36.0 - 50.0 fL 08/18/2019 6:08 AM [facility] RDW-CV 13.5 11.2 - 14.8 % 08/18/2019 6:08 AM [facility] MPV 10.6 9.3 - 12.8 fL 08/18/2019 6:08 AM [facility] nRBC Absolute 0.00 0 10? 3 /uL 08/18/2019 6:08 AM [facility] nRBC Auto 0.0 0 /100 WBC 08/18/2019 6:08 AM [facility] Blood BLOOD SPECIMEN / Unknown Lab Venipuncture / Unknown 08/18/2019 5:55 AM [facility] 08/18/2019 5:59 AM [facility] Marcello Shannon MD LAB - HEMATOLOGY ORD ERABLES [facility] [address] [phone] * (ABNORMAL) COMPREHENSIVE METABOLIC PANEL (08/18/2019 5:55 AM [facility]) BUN 9 7 - 26 mg/dL 08/18/2019 6:27 AM [facility] Creatinine 0.9 0.6 - 1.2 mg/dL 08/18/2019 6:27 AM [facility] [facility] Sodium 141 136 - 145 mmol/L 08/18/2019 6:27 AM [facility] Potassium 4.0 3.5 - 4.5 mmol/L 08/18/2019 6:27 AM [facility] Chloride 107 98 - 107 mmol/L 08/18/2019 6:27 AM [facility] CO2 22 22 - 29 mmol/L 08/18/2019 6:27 AM [facility] Glucose 100 70 - 115 mg/dL 08/18/2019 6:27 AM [facility] Calcium 8.8 8.4 - 10.2 mg/dL 08/18/2019 6:27 AM [facility] Protein Total 5.4(L) 6.0 - 8.3 g/dL 08/18/2019 6:27 AM [facility] Albumin 3.5 3.4 - 5.0 g/dL 08/18/2019 6:27 AM [facility] Bilirubin Total 0.4 0.2 - 1.2 mg/dL 08/18/2019 6:27 AM [facility] Alkaline Phosphatase 65 40 - 150 Units/L 08/18/2019 6:27 AM [facility] ALT 40 0 - 55 Units/L 08/18/2019 6:27 AM [facility] AST 31 5 - 34 Units/L 08/18/2019 6:27 AM [facility] Anion Gap 16 8 - 18 08/18/2019 6:27 AM [facility] BUN/Creatinine Ratio 10 7 - 23 08/18/2019 6:27 AM [facility] Osmolality Calculated 291 270 - 300 mOsm/kg 08/18/2019 6:27 AM [facility] Albumin/Globulin Ratio 1.8 1.1 - 2.3 08/18/2019 6:27 AM [facility] eGFR >60 >60 mL/min/1.7 3 m2 08/18/2019 6:27 AM [facility] Blood BLOOD SPECIMEN / Unknown Lab Venipuncture / Unknown 08/18/2019 5:55 AM [facility] 08/18/2019 5:59 AM [employer] Marcello Shannon MD LAB - CHEMISTRY [place] Performing Organization Address City/[facility]/ZIP Co de Phone Number [address] [phone] * GLUCOSE - POINT OF CARE (08/18/2019 4:51 AM [employer]) Glucose WB/POC 103 70 - 115 mg/dL 08/18/2019 7:09 AM [facility] Specimen Type Arterial/C apillary 08/18/2019 7:09 AM [facility] Blood BLOOD SPECIMEN / Unknown 08/18/2019 4:51 AM [employer] 08/18/2019 7:09 AM [employer] Chloe Kent MD LAB - POINT OF CARE ORDERABLES Performing Organization Address [facility] Co de Phone Number [address] [phone] * (ABNORMAL) GLUCOSE - POINT OF CARE (08/18/2019 12:31 AM [employer]) Glucose WB/POC 116(H) 70 - 115 mg/dL 08/18/2019 5:43 AM [facility] Specimen Type Arterial/C apillary 08/18/2019 5:43 AM [facility] Blood BLOOD SPECIMEN / Unknown 08/18/2019 12:31 AM [employer] 08/18/2019 5:43 AM [employer] Chloe Kent MD LAB - POINT OF CARE ORDERABLES [address] [phone] * (ABNORMAL) GLUCOSE - POINT OF CARE (08/17/2019 9:45 PM [employer]) Pathologist [facility] [place] Glucose WB/POC 119(H) 70 - 115 mg/dL 08/18/2019 5:43 AM [employer] [facility] Specimen Type Arterial/C apillary 08/18/2019 5:43 AM [employer] [facility] Blood BLOOD SPECIMEN / Unknown 08/17/2019 9:45 PM [employer] 08/18/2019 5:43 AM [employer] Chloe Kent MD LAB - POINT OF CARE ORDERABLES Performing Organization Address [facility] de Phone Number [address] [phone] * LAB MISC TEST (NOT BLOOD) (08/17/2019 12:55 PM [employer]) Pathologist [facility] [place] Test Name Annexin A1 with Interpretation 08/27/2019 10:55 AM [employer] [facility] NON INTERF Test Result See Scanned Report 08/27 10:55 AM [employer] [facility] NON INTERF Comment Ref Lab 08/27/2019 10:55 AM [employer] [facility] NON INTERF Other ENTIRE SPLEEN / Unknown Collection / Unknown 08/17/2019 12:55 PM [employer] 08/18/2019 3:31 PM [employer] Chloe Kent MD LAB - BODY FLUID ORD ERABLES Performing Organization Address [facility] Co de Phone Number [facility] NON INTERF [address] [place] [address] * PATHOLOGY TISSUE (08/17/2019 9:07 AM [employer]) Pathologist [facility] Case Report Surgical Pathology Report ? Case: [id number] ? Authorizing Provider: ??Chloe Kent MD ?Collected: ? 08/17/2019 09:07 AM ? Ordering Location: ? [facility] ? Received: ?08/17/2019 11:52 AM ? Pathologist: ? Margaret Hooker Mai, DO ? Specimen: ?Spleen, spleen for permanent ? 10/21/2019 5:16 PM [facility] Final Diagnosis Spleen, resection: - Congestion with prominent red pulp sinuses. - Negative for malignancy. 10/21/2019 5:16 PM [facility] Microscopic Description and Comment [...] reactive. 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 Case reviewed at intradepartmental consensus conference. 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 10/21/2019 5:16 PM [facility] Gross Description The requisition and specimen label(s) are identified with the patient name, Marcello Luis Received in formalin, Specimen A is a 621 g, 17 x 11 x 7.5 cm spleen. The capsular surface is purple-brown, smooth and glistening. The hilum shows vessels stapled closed. The specimen is sectioned to show solid, maroon cut surfaces. No focal lesions are identified. Desk Interviewer sections are submitted in cassettes A1 and A2. SEAMUS/mark 10/21/2019 5:16 PM [facility] Addendum 1 A properly controlle d annexin stain was performed at [facility] [place]. The H&E, CD20 and PAX5 stains with controls were reviewed in conjunction with the stain. Annexin is positive background T cells, granulocytes and macrophages. The diagnosis is unchanged. 10/21/2019 5:16 PM [facility] Addendum electronically signed by Margaret Hooker Mai, DO on 08/29/2019 at 11:29 AM Addendum 2 This addendum has been created for billing clarification. [place] and lambda light chain by in situ hybridization were performed on this sample. There is nonspecific blushing but no light chain restriction by in situ hybridization. The diagnosis is unchanged. 10/21/2019 5:16 PM [facility] Addendum electronically signed by Margaret Hooker Mai, DO on 10/21/2019 at 5:16 PM Disclaimer The performance characteristics of all immunohistochemical and indirect immunofluorescence stains (if any) cited in this report were determined by the Histopathology Laboratory of [facility]. Some of these tests were developed [...] attending (teaching) pathologist. 10/21/2019 5:16 PM [facility] Embedded Images 10/21/2019 5:16 PM [facility] Resection without Tumor ENTIRE SPLEEN / Unknown 08/17/2019 9:07 AM [employer] [facility] 08/17/2019 11:52 AM [employer] Comment:Pre-op diagnosis: C85.97 Chloe Kent MD LAB - PATHOLOGY/CYTO LOGY ORDERABLES Performing Organization Address City/[facility]/ZIP Co de Phone Number [facility] [address] [phone] * PREPARE (CROSSMATCH) RBC UNIT(S), 2 Units (08/17/2019 6:58 AM [employer]) Unit Description LR IRR Red Cells [facility] Unit ABO A [facility] Unit Rh POS [facility] Product Code RU1 [facility] Unit Donor [facility] [id number] 3 [facility] Unit Status released [facility] Product [facility] [id number] [facility] Blood Type Barcode 6200 [facility] Unit Description LR IRR Red Cells [facility] Unit ABO A [facility] Unit Rh POS [facility] Product Code RU1 [facility] Unit Donor [facility] [id number] 5 [facility] Unit Status released [facility] Product Number [id number] [facility] Blood Type Barcode 6200 [facility] Blood Bank BLOOD SPECIMEN / Unknown 08/17/2019 6:58 AM [employer] 08/17/2019 6:58 AM [employer] Elkin Shahid MD LAB - BLOOD BANK ORD ERABLES [facility] [address] * TYPE + SCREEN PANEL (08/17/2019 6:45 AM [employer]) Antibody Screen NEG 0 7:51 AM [employer] [facility] ABO Rh A POS 08/17/2019 7:51 AM [employer] [facility] Blood Bank BLOOD SPECIMEN / Unknown Venipuncture / Unknown 08/17/2019 6:45 AM [employer] 08/17/2019 6:57 AM [employer] Elkin Shahid MD LAB - BLOOD BANK ORD ERABLES [facility] [address] [place] [address], [facility] documented in this encounter Visit Diagnoses Diagnosis Preoperative examination- Primary Preoperative examination, unspecified Non-Hodgkin's lymphoma of spleen, unspecified non-Hodgkin lymphoma type (HCC) B-cell lymphoma, unspecified B-cell lymphoma type, unspecified body region (HCC) 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 $ Given 08/19/2019 1:38 PM [employer] 10 mL 0.9% NaCl injection 10 mL 10 mL, Intracatheter, EVERY 8 HOURS, First dose on Fri08/17/19 at 2200, Until Discontinued, Flush peripheral IV catheter with 1-10 mL of normal saline before and after medications and prn to clear blood from the line or to verify patency. $ Given 08/19/2019 1:38 PM [employer] 10 mL 0.9% NaCl injection 3 mL 3 mL, Intracatheter, EVERY 8 HOURS, First dose on Fri08/17/19 at 2200, Until Discontinued $ Given 08/19/2019 1:38 PM [employer] 3 mL $ Given 08/19/2019 6:44 AM [employer] 3 mL $ Given 08/19/2019 12:33 AM [employer] 3 mL 0.9% NaCl injection 3 mL 3 mL, Intracatheter, PRN, Other, peripheral line flush, Starting on Fri08/17/19 at 1825, Until Fri08/19/19 at 1646, Flush after each use and blood draws. $ Given 08/17/2019 9:13 PM [employer] 3 mL $ Given 08/17/2019 7:58 PM [employer] 3 mL acetaminophen (TYLENOL) tablet 650 mg 650 mg, Oral, EVERY 6 HOURS, 20 doses, First dose on Fri08/17/19 at 1300, Last dose on Fri08/22/19 at 0600 $ Given 08/19/2019 11:30 AM [employer] 650 mg $ Given 08/19/2019 6:43 AM [employer] 650 mg $ Given 08/19/2019 12:32 AM [employer] 650 mg acyclovir (ZOVIRAX) capsule 400 mg 400 mg, Oral, 2 TIMES DAILY, First dose (after last reorder) on Fri08/18/19 at 0900, Until Discontinued, Indication for anti-infective therapy: Chronic prophylaxis $ Given 08/19/2019 9:40 AM [employer] 400 mg $ Given 08/18/2019 9:58 PM [employer] 400 mg $ Given 08/18/2019 9:46 AM [employer] 400 mg cyclobenzaprine (FLEXERIL) tablet 10 mg 10 mg, Oral, 3 TIMES DAILY, First dose (after last modification) on Fri08/18/19 at 0900, Until Discontinued $ Given 08/19/2019 1:38 PM [employer] 10 mg $ Given 08/19/2019 9:40 AM [employer] 10 mg $ Given 08/18/2019 9:58 PM [employer] 10 mg docusate sodium (COLACE) capsule 100 mg 100 mg, Oral, DAILY, First dose on Fri08/18/19 at 0900, Until Discontinued $ Given 08/19/2019 9:40 AM [employer] 100 mg $ Given 08/18/2019 9:46 AM [employer] 100 mg enoxaparin (LOVENOX) injection 40 mg 40 mg, Subcutaneous, DAILY AT 2200, First dose on Fri08/17/19 at 2200, Until Discontinued, (for prefilled syringes) do not expel air bubble from the syringe prior to the injection Remind Patient to not rub injection site. Could cause hematoma. $ Given 08/18/2019 9:59 PM [employer] 40 mg Right Leg $ Given 08/17/2019 9:11 PM [employer] 40 mg Le ft Arm escitalopram (LEXAPRO) tablet 10 mg 10 mg, Oral, DAILY, First dose on Fri08/18/19 at 0900, Until Discontinued $ Given 08/19/2019 10:57 AM [employer] 10 mg $ Given 08/18/2019 9:46 AM [employer] 10 mg famotidine (PEPCID) tablet 20 mg 20 mg, Oral, 2 TIMES DAILY, First dose on Fri08/18/19 at 1315, Until Discontinued $ Given 08/19/2019 9:40 AM [employer] 20 m g $ Given 08/18/2019 9:58 PM [employer] 20 mg $ Given 08/18/2019 2:44 PM [employer] 20 mg fentaNYL (PF) (SUBLIMAZE) injection 25 mcg 25 mcg, Intravenous, EVERY 10 MIN PRN, Mild Pain, 4 doses, Starting on Fri08/17/19 at 1111, Until Fri08/17/19 at 1756, Maximum total of 4 doses. If patient reaches max total dose, please consult anesthesiologist prior to further administration of pain meds. Hold pain meds if there are signs of hypoventilation., PACU $ Given 08/17/2019 1:27 PM [employer] 25 mcg $ Given 08/17/2019 1:17 PM [employer] 25 mcg fentaNYL (PF) (SUBLIMAZE) injection 50 mcg 50 mcg, Intravenous, EVERY 10 MIN PRN, Severe Pain, 4 doses, Starting on Fri08/17/19 at 1111, Until Fri08/17/19 at 1756, Maximum total of 4 doses If patient reaches max total dose, please consult anesthesiologist prior to further administration of pain meds. Hold pain meds if there are signs of hypoventilation., PACU $ Given 08/17/2019 2:47 PM [employer] 50 mcg $ Given 08/17/2019 12:15 PM [employer] 50 mcg $ Given 08/17/2019 11:44 AM [employer] 50 mcg ibuprofen (MOTRIN) tablet 600 mg 600 mg, Oral, EVERY 6 HOURS, 20 doses, First dose on Fri08/17/19 at 1300, Last dose on Fri08/22/19 at 0600, Not to exceed 3200 mg daily from all sources. $ Given 08/19/2019 11:30 AM [employer] 600 mg $ Given 08/19/2019 6:43 AM [employer] 600 mg $ Given 08/19/2019 12:32 AM [employer] 600 mg immune globulin IVIG (human) 10 % infusion 40 g 40 g (rounded from 35.48 g = 0.4 g/kg ? 88.7 kg Adjusted weight), Intravenous, CONTINUOUS, Starting on Ofelia 08/19/19 at 1230, Until Fri08/19/19 at 1629, Initiate [...] instructions. $ New Bag/Syringe 08/19/2019 3:17 PM [employer] 40 g 579 mL/hr $ New Bag/Syringe 08/19/2019 2:36 PM [employer] 40 g 290 mL /hr $ New Bag/Syringe 08/19/2019 2:05 PM [employer] 40 g 145 mL /hr K phos & NA phos (K PHOS NEUTRAL) tablet 1 tablet 1 tablet, Oral, 2 TIMES DAILY, 2 doses, First dose on Fri08/19/19 at 0915, Last dose on Fri08/19/19 at 2100, Contains Phos 8 mmol, K+ 1.1 mEq, Na 13 mEq per tablet $ Given 08/19/2019 9:40 AM [employer] 1 tablet lactated ringers infusion at 125 mL/hr, Intravenous, CONTINUOUS, Starting on Fri08/17/19 at 1115, Until Fri08/17/19 at 1756, PACU *Current Bag - New Order 08/17/2019 11:30 AM [employer] 125 mL/hr lactated ringers infusion at 125 mL/hr, Intravenous, CONTINUOUS, Starting on Fri08/17/19 at 1830, Until Fri08/18/19 at 1153 $ New Bag/Syringe 08/18/2019 6:40 AM [employer] 125 mL/hr $ New Bag/Syringe 08/17/2019 9:13 PM [employer] 125 mL /hr lidocaine (LIDODERM) 5 % patch 1 patch 1 patch, Administer over 12 Hours, DAILY, First dose on Fri08/18/19 at 0900, Until Discontinued, Apply to abdomen and remove patch after a max of 12 hours of application within a 24 hour period. $ Applied 08/19/2019 9:40 AM [employer] 1 patch Abdominal Tissue $ Applied 08/18/2019 9:46 AM [employer] 1 patch Ab dominal Tissue magnesium oxide (MAG-OX) tablet 400 mg 400 mg, Oral, DAILY, First dose on Fri08/18/19 at 0900, Until Discontinued $ Given 08/19/2019 9:40 AM [employer] 400 mg $ Given 08/18/2019 12:35 PM [employer] 400 mg morphine injection 4 mg 4 mg, Intravenous, EVERY 3 HOURS PRN, Severe Pain, Starting on Fri08/17/19 at 1301, Until Fri08/19/19 at 0605, Use IV option if patient is unable to take PO medications or if PO medications are ineffective, Allow a repeat dose for severe pain? No $ Given 08/18/2019 10:58 AM [employer] 4 mg $ Given 08/18/2019 6:38 AM [employer] 4 mg $ Given 08/18/2019 2:52 AM [employer] 4 mg oxyCODONE (immediate release) (ROXICODONE) tablet 10 mg 10 mg, Oral, EVERY 4 HOURS PRN, Severe Pain, Starting on Fri08/17/19 at 1301, Until Fri08/18/19 at 0716, Allow a repeat dose for severe pain? No $ Given 08/18/2019 5:37 AM [employer] 10 mg $ Given 08/18/2019 12:48 AM [employer] 10 mg $ Given 08/17/2019 9:10 PM [employer] 10 mg oxyCODONE (immediate release) (ROXICODONE) tablet 10 mg 10 mg, Oral, EVERY 4 HOURS PRN, Severe Pain, Starting on Fri08/18/19 at 0716, Until Fri08/19/19 at 1646 $ Given 08/18/2019 12:36 PM [employer] 10 mg oxyCODONE (immediate release) (ROXICODONE) tablet 5 mg 5 mg, Oral, EVERY 4 HOURS, First dose on Fri08/18/19 at 0800, Until Discontinued $ Given 08/19/2019 1:38 PM [employer] 5 mg $ Given 08/19/2019 9:41 AM [employer] 5 mg $ Given 08/19/2019 6:44 AM [employer] 5 mg oxyCODONE (immediate release) (ROXICODONE) tablet [...] Surgical prophylaxis $ Given 08/19/2019 11:30 AM [employer] 500 mg $ Given 08/19/2019 6:43 AM [employer] 500 mg $ Given 08/19/2019 12:32 AM [employer] 500 mg polyethylene glycol 3350 (MIRALAX) packet 17 g 17 g, Oral, DAILY, First dose on Fri08/18/19 at 1245, Until Discontinued, Mix in 8 ounces of water, juice, soda, coffee or tea prior to administration $ Given 08/19/2019 9:40 AM [employer] 17 g $ Given 08/18/2019 2:44 PM [employer] 17 g prochlorperazine (COMPAZINE) injection 10 mg 10 mg, Intravenous, ONCE PRN, Nausea/Vomiting, Starting on Fri08/17/19 at 1111, Until Fri08/17/19 at 1756, First choice, PACU $ Given 08/17/2019 5:05 PM [employer] 10 mg documented in this encounter Active and Recently Administered Medications Times are shown in [employer]. Scheduled Medication Order 08/17/2019 08/18/2019 08/19/2019 0.9% [...] Vane Ferrera RN - Reason: IV Currently Infusing)1447 (Not Administered - Provider: Yanni Javier RN - Reason: See Comments - Comment: no port access at this time) 0034 (Not Administered - Provider: Onelia Phipps V - Reason: Documented on duplicate row)0644 (Not Administered - Provider: Onelia Phipps V - Reason: Documented on duplicate row)1338 ($ Given - Provider: Eleno Parra RN) 0.9% NaCl injection 10 mL 10 mL, [...] Crane RN)1956 ($ Given - Provider: Vane Ferrera RN) 0004 ($ Given - Provider: Vane Ferrera RN)0537 ($ Given - Provider: Vane Ferrera, RN)1235 ($ Given - Provider: Yanni Javier RN)1758 ($ Given - Provider: Yanni Javier RN) 0032 ($ Given - Provider: Onelia Phipps V)0643 ($ Given - Provider: Onelia Phipps V)1130 ($ Given - Provider: Eleno Parra, ROSEMARY) acyclovir (ZOVIRAX) capsule 400 mg 400 mg, Oral, 2 TIMES DAILY, First dose (after last reorder) on Fri08/18/19 at 0900, Until Discontinued, Indication for anti-infective therapy: Chronic prophylaxis 0946 ($ Given - Provider: Yanni Javier RN)2158 ($ Given - Provider: Onelia Phipps V) 0940 ($ Given - Provider: Eleno Parra, ROSEMARY) cyclobenzaprine (FLEXERIL) tablet 10 mg 10 mg, Oral, 3 TIMES DAILY, First dose (after last modification) on Fri08/18/19 at 0900, Until Discontinued 46 ($ Given - Provider: Yanni Javier RN)1445 ($ Given - Provider: Yanni Javier RN)2158 ($ Given - Provider: Onelia Phipps V) 0940 ($ Given - Provider: Eleno Parra, ROSEMARY)1338 ($ Given - Provider: Eleno Parra, ROSEMARY) docusate sodium (COLACE) capsule 100 mg 100 mg, Oral, DAILY, First dose on Fri08/18/19 at 0900, Until Discontinued 945 ($ Given - Provider: Yanni Javier RN) 0940 ($ Given - Provider: Eleno Parra, ROSEMARY) enoxaparin (LOVENOX) injection 40 mg 40 mg, Subcutaneous, DAILY AT 2200, First dose on Fri08/17/19 at 2200, Until Discontinued, (for prefilled syringes) do not expel air bubble from the syringe prior to the injection Remind Patient to not rub injection site. Could cause hematoma. 2110 ($ Given - Provider: Vane Ferrera RN) 2158 ($ Given - Provider: Onelia Phipps V) [...] ($ Given - Provider: Eleno Parra RN) ibuprofen (MOTRIN) tablet 600 mg 600 mg, Oral, EVERY 6 HOURS, 20 doses, First dose on Fri08/17/19 at 1300, Last dose on Fri08/22/19 at 0600, Not to exceed 3200 mg daily from all sources. 1611 ($ Given - Provider: Maria Del Carmen Puri RN)1956 ($ Given - Provider: Vane Ferrera, ROSEMARY) 0004 ($ Given - Provider: Vane Ferrera RN)0537 ($ Given - Provider: Vane eFrrera, ROSEMARY)1235 ($ Given - Provider: Yanni aJvier RN)1758 ($ Given - Provider: Yanni Javier RN) 0032 ($ Given - Provider: Onelia Phipps V)0643 ($ Given - Provider: Onelia Phipps V)1130 ($ Given - Provider: Eleno Parra RN) K phos & NA phos (K PHOS [...] Yanni Javier RN)2201 (Removed - Provider: Onelia Moise V) 0940 ($ Applied - Provider: Eleno Parra RN)2140 (Due: Removed - Provider: Eleno Parra RN) magnesium oxide (MAG-OX) tablet 400 mg 400 mg, Oral, DAILY, First dose on Fri08/18/19 at 0900, Until Discontinued 1235 ($ Given - Provider: Yanni Javier RN) [...] Phipps V)0941 ($ Given - Provider: Eleno Parra RN)1338 ($ Given - Provider: Eleno Parra RN) [...] RN)1436 ($ New Bag/Syringe - Provider: Eleno Parra RN)1517 ($ New Bag/Syringe - Provider: Eleno Parra, RN)1534 (Stopped - Provider: Eleno Parra RN) lactated ringers infusion (CANCELED) at 125 mL/hr, Intravenous, CONTINUOUS, Starting on 08/17/19 at 1115, Until e 08/17/19 at 1756, PACU 1130 (*Current Bag - New Order - Provider: Maria Del Carmen Puri RN - Comment: remains from OR) lactated ringers infusion (CANCELED) at 125 mL/hr, Intravenous, CONTINUOUS, Starting on 08/17/19 at 1830, Until 08/18/19 at 1153 2113 ($ New Bag/Syringe - Provider: Vane Ferrera RN) 0640 ($ New Bag/Syringe - Provider: Vane Ferrera, ROSEMARY) PRN Medication Order 08/17/2019 08/18/2019 08/19/2019 0.9% NaCl injection 3 mL(Linked Group 1) 3 mL, Intracatheter, PRN, Other, peripheral line flush, Starting on Fri08/17/19 at 1825, Until Ofelia 08/19/19 at 1646, Flush after each use and blood draws. 1957 ($ Given - Provider: Vane Ferrera, ROSEMARY)2112 ($ Given - Provider: Vane Ferrera, ROSEMARY) bupivacaine PF (MARCAINE PF) 0.25 % injection [...] PACU 1317 ($ Given - Provider: Karie Crane RN)1327 ($ Given - Provider: Karie Crane, ROSEMARY) fentaNYL (PF) (SUBLIMAZE) injection 50 mcg (CANCELED) [...] Ferrera RN)0537 ($ Given - Provider: Vane Ferrera RN) oxyCODONE (immediate release) (ROXICODONE) tablet 10 mg(Linked Group 3) 10 mg, Oral, EVERY 4 HOURS PRN, Severe Pain, Starting on Fri08/18/19 at 0716, Until Fri08/19/19 at 1646 1236 ($ Given - Provider: Yanni Javier RN) oxyCODONE (immediate release) (ROXICODONE) tablet 5 mg(Linked Group 3) 5 mg, Oral, EVERY 4 HOURS PRN, Moderate Pain, Starting on Fri08/18/19 at 0716, Until Ofelia 08/19/19 at 1646 1236 (See Alternative - Provider: Yanni Javier RN) prochlorperazine (COMPAZINE) injection 10 mg (CANCELED) 10 [...] 1646 documented in this encounter Care Teams Shop Blacksmith Relationship Specialty Start Date End Date Ran Nuñez MD [address] [place] [phone] PCP - General Family Medicine 03/22/19 12/22/20 Hillary Apple MD [address] [place] [address] Hematology and Oncology 03/17/19 Bill Ferrera MD [address] [place] [address] Hematology and Oncology 03/17/19 08/27/21 Tony Dumont MD [address] [place] [address] Hematology and Oncology 03/17/19 Shalini Segal MD [address] [place] [address] Hematology and Oncology 03/17/19 09/29/19 Karie Jones, ROSEMARY Registered Nurse 03/17/19 09/21/19 Maryjo Reinoso LCSW Inner Tube Inserter 03/17/19 Madyson Clay, PharmD 03/17/19 Dana Lala, CLINICAL RESEARCH COORDINATOR-PATTERNATOR [address] [place] [address] [address] [place] [address] Oncology 03/17/19 Mckinley Silver PA-C [facility] [address] [address] Physician Panel Installer 03/17/19 09/08/19 Tiffanie Mcpherson APRN-ERIKA [address] 2nd [place] [address] Family Medicine 03/17/19 Stephanie Mahoney, RN Registered Nurse 03/17/19 10/29/21 Alycia Galvan, ROSEMARY 03/17/19 10/29/21 Cesar Tavares MD [address] [place] [address] Referring Physician Medical Oncology 03/23/19 Karei Jones, RN Registered Nurse 06/08/19 10/29/21 documented as of this encounter
--- OUTSIDE RECORDS SUMMARY | 2024-08-18 00:33 | XMS_ITS | Encounter Summary ---
Author Organization [facility] Address [address] [facility] [place] [address] Care Team Providers Care Internal Revenue Agent Name Role Phone Hillary Apple MD Unavailable [phone] Bill Ferrera MD Unavailable [phone] Tony Dumont MD Unavailable [phone] Shalini Segal MD Unavailable [phone] Karie Jones RN Unavailable Unavailable Maryjo ReinosoW Unavailable Unavailable Madyson Clay PharmD Unavailable Unavaila Dana Galicia CHIEF PHARMACIST-COLLEGE ADMINISTRATOR Unavailable [phone] Mckinley Silver-C Unavailable Unavail able Patrick, Tiffanie [place] CHIEF PHARMACIST-BREWERY CELLAR WORKER Unavailable [phone] Stephanie Mahoney RN Unavailable Unavailable Alycia Galvan RN Unavailable UnavailRan Mejía MD Primary Care Provider Cesar Tavares MD Unavailable [phone] Karie Jones RN Unavailable Unavailable Encounter Details Date Type Department Care Team (Late st Contact Info) Description 08/23/[address] [facility] [address] [place] [address] Karie Jones, RN Social History [...] Telephone Encounter - Karie Jones RN - 08/23/2019 10:27 AM CST Informed pt of appointment here on at 2pm to see Dr. Francis. He has an appt at 12 to seethe surgeon, and will come up after to get blood drawn, and see Dr. Francis. MOSTAT MAKER documented in this encounter Plan of Treatment Upcoming Encounters Date Type Department Care Team (Late st Contact Info) Description 08/26/2024 11:00 AM THERMOSTAT MAKER Office Visit [facility] - Pulmonology [address] [place] [address], [place] [phone] Andrew Francis MD [address] [place] [address] 2L DIV OF PULMONARY/[place] [address] documented as of this encounter Visit Diagnoses Not on filedocumented in this encounter Care Teams Internal Revenue Agent Relationship Specialty Start Date End Date Ran Nuñez MD [address] [place] [address] PCP - General Family Medicine 8/19/19 5/21/21 Hillary Apple MD [address] [place] [address] Hematology and Oncology 03/17/19 Bill Ferrera MD [address] [place] [address] Hematology and Oncology 03/17/19 08/27/21 Tony Dumont MD [address] [place] [address] Hematology and Oncology 03/17/19 Shalini Segal MD [address] [place] [address] Hematology and Oncology 03/17/19 09/29/19 Karie Jones, RN Registered Nurse 03/17/19 09/21/19 Maryjo Reinoso, DIMMER BOARD OPERATOR Dry Starch Operator 03/17/19 Madyson Clay, PharmD 03/17/19 Dana Lala APRN-COLLEGE ADMINISTRATOR [address] [place] [address] [address] [place] [address] Oncology 03/17/19 Mckinley Silver PA-C [address] [place] [address] [address] [place] [address] Physician Set Off Press Operator 03/17/19 09/08/19 Tiffanie Nguyen APRN-BREWERY CELLAR WORKER [address] [place] [address] 2[address] [place] [address] Family Medicine 03/17/19 Stephanie Mahoney, RN Registered Nurse 03/17/19 10/29/21 Alycia Galvan, ROSEMARY 03/17/19 10/29/21 Cesar Tavares MD [address] [place] [address] [place] [address] Referring Physician Medical Oncology 03/23/19 Karie Jones, RN Registered Nurse 06/08/19 10/29/21 documented as of this encounter
--- OUTSIDE RECORDS SUMMARY | 2024-08-18 00:33 | XMS_ITS | Encounter Summary ---
Author Organization [facility] Address [address] [facility] [place] [address] Care Team Providers Care Pattern Wheel Maker Name Role Phone Hillary Apple MD Unavailable [phone] Bill Ferrera MD Unavailable [phone] Tony Dumont MD Unavailable [phone] Shalini Segal MD Unavailable [phone] Karie Jones RN Unavailable Unavailable Maryjo ReinosoW Unavailable Unavailable Madyson Clay PharmD Unavailable Unavaila Dana Galicia WALL COVERING INSTALLER-CONTOUR PATH TAPE MILL OPERATOR Unavailable [phone] Mckinley SilverC Unavailable Unavail able PatrickTiffanie APRN-SPIRITUAL ADVISOR Unavailable Stephanie Mahoney RN Unavailable Unavailable Alycia Galvan RN Unavailable UnavailRan Mejía MD Primary Care Provider Cesar Tavares MD Unavailable [phone] Karie Jones RN Unavailable Unavailable Encounter Details Date Type Department Care Team (Late st Contact Info) Description 08/30/2019 Orders Only [facility] [address] [place] [address] Patrick, Tiffanie [place] APRN-SPIRITUAL ADVISOR [address] [place] [address] Pre-transplant evaluation for stem cell transplant Social [...] st Contact Info) Description 08/26/2024 11:00 AM TRAIL MAINTENANCE WORKER Office Visit [facility] - Pulmonology [address] [place] [address], [place] [address] Andrew Francis MD [address] [place] [address] 2L DIV OF PULMONARY/[place] [address] documented as of this encounter Visit Diagnoses Diagnosis Pre-transplant evaluation for stem cell transplant- Primary documented in this encounter Care Teams Pattern Wheel Maker Relationship Specialty Start Date End Date Ran Nuñez MD [address] [place] [address] PCP - General Family Medicine 03/22/19 12/22/20 Hillary Apple MD [address] [place] [address] Hematology and Oncology 03/17/19 Bill Ferrera MD [address] [place] [address] Hematology and Oncology 03/17/19 08/27/21 Tony Dumont MD [address] [place] [address] Hematology and Oncology 03/17/19 Shalini Segal MD [address] [place] [address] Hematology and Oncology 03/17/19 09/29/19 Karie Jones, RN Registered Nurse 03/17/19 09/21/19 Maryjo Reinoso LCSW Clerk Secretary 03/17/19 Madyson Clay, PharmD 03/17/19 Dana Lala WALL COVERING INSTALLER-CONTOUR PATH TAPE MILL OPERATOR [address] [place] [address] 2nd [place] [address] Oncology 03/17/19 Mckinley Silver PA-C [address] [place] [address] [place] [address] Physician Plastic Mixer 03/17/19 09/08/19 Tiffanie Nguyen WALL COVERING INSTALLER-SPIRITUAL ADVISOR [address] [place] [address] 2nd [place] [address] Family Medicine 03/17/19 Stephanie Mahoney, RN Registered Nurse 03/17/19 10/29/21 Alycia Galvan, ROSEMARY 03/17/19 10/29/21 Cesar Tavares MD [address] [place] [address] [place] [address] Referring Physician Medical Oncology 03/23/19 Karie Jones, RN Registered Nurse 06/08/19 10/29/21 documented as of this encounter
--- OUTSIDE RECORDS SUMMARY | 2024-08-18 00:33 | XMS_ITS | Encounter Summary ---
Author Organization [facility] Address [address] [facility] [place] [address] Care Team Providers Care Fish Drier Name Role Phone Hillary Apple MD Unavailable [phone] Bill Ferrera MD Unavailable [phone] Tony Dumont MD Unavailable [phone] Shalini Segal MD Unavailable [phone] Karie Jones RN Unavailable Unavailable Maryjo ReinosoW Unavailable Unavailable Madyson Clay PharmD Unavailable Unavaila Dana Galicia MEDICAL TRANSCRIPTION RADIOLOGY-BIRD KEEPER Unavailable [phone] Mckinley SilverC Unavailable Unavail able PatrickTiffanie APRN-UX SPECIALIST Unavailable [phone] Stephanie Mahoney RN Unavailable Unavailable Alycia Galvan RN Unavailable UnavailRan Mejía MD Primary Care Provider Cesar Tavares MD Unavailable [phone] Karie Jones RN Unavailable Unavailable Encounter Details Date Type Department Care Team (Late st Contact Info) Description 08/18/2019 Orders Only [facility] [address] [place] [address] Patrick, Tiffanie [place] APRN-UX SPECIALIST [address] [place] [address] Social History Tobacco Use Types Packs/Day Years [...] or have serious hearing difficult y? No 08/17/2019 Is person blind or have serious difficulty seein g? No 08/17/2019 Does person have serious dif ficulty walking/climbing stairs? No 08/17/2019 Does person have difficulty dressing/bathing? No 08/17/2019 Does person have difficulty doing errands alone? No 08/17/2019 Cognitive Status Response Date of Assessm ent Does person have difficulty concentrating/remembering/making decisions? No 08/17/2019 documented as of this encounter Plan of Treatment Upcoming Encounters Date Type Department Care Team (Late st Contact Info) Description 08/26/2024 11:00 AM RESORT DESK CLERK Office Visit [facility] - Pulmonology [address] [place] [address], [place] [phone] Andrew Francis MD [address] [place] [address] 2L DIV OF PULMONARY/[place] [address] documented as of this encounter Visit Diagnoses Not on filedocumented in this encounter Care Teams Fish Drier Relationship Specialty Start Date End Date Ran Nuñez MD [address] [place] [address] PCP - General Family Medicine 03/22/19 12/22/20 Hillary Apple MD [address] [place] [address] Hematology and Oncology 03/17/19 Bill Ferrera MD [address] [place] [address] Hematology and Oncology 03/17/19 08/27/21 Tony Dumont MD [address] [place] [address] Hematology and Oncology 03/17/19 Shalini Segal MD [address] [place] [address] Hematology and Oncology 03/17/19 09/29/19 Karie Jones, RN Registered Nurse 03/17/19 09/21/19 Maryjo Reinoso LCSW Office Rn 03/17/19 Madyson Clay, PharmD 03/17/19 Dana Lala MEDICAL TRANSCRIPTION RADIOLOGY-BIRD KEEPER [address] [place], [place] [address]TA [facility] 2[place] [address] Oncology 03/17/19 Mckinley Silver PA-C [address] [place] [address] 2[place] [address] Physician Automation Qtp Tester 03/17/19 09/08/19 Tiffanie Nguyen, MEDICAL TRANSCRIPTION RADIOLOGY-UX SPECIALIST [address] [place] [address] 2[place] [address] Family Medicine 03/17/19 Stephanie Mahoney, RN Registered Nurse 03/17/19 10/29/21 Alycia Galvan, ROSEMARY 03/17/19 10/29/21 Cesar Tavares MD [address] [place] [address] Referring Physician Medical Oncology 03/23/19 Karie Jones, RN Registered Nurse 06/08/19 10/29/21 documented as of this encounter
--- OUTSIDE RECORDS SUMMARY | 2024-08-18 00:33 | XMS_ITS | Encounter Summary ---
Author Organization [facility] Address [address] [place] [address] Care Team Providers Care Barometers Calibrator Name Role Phone Hillary Apple MD Unavailable [phone] Bill Ferrera MD Unavailable [phone] Tony Dumont MD Unavailable [phone] Shalini Segal MD Unavailable [phone] Karie Jones RN Unavailable Unavailable Maryjo Reinoso LCSW Unavailable Unavailable Madyson Clay PharmD Unavailable Unavaila Dana Galicia ESTHETICIAN FACIALIST-BOX CAR BRACER Unavailable [phone] Tiffanie Nguyen ESTHETICIAN FACIALIST-ELECTROTYPE SERVICER Unavailable [phone] Stephanie Mahoney RN Unavailable Unavailable Alycia Galvan RN Unavailable UnavailRan Mejía MD Primary Care Provider Cesar Tavares MD Unavailable [phone] Karie Jones RN Unavailable Unavailable Encounter Details Date Type Department Care Team (Latest Contact Info) Description 09/09/2019 11:34 AM TOWN MANAGER - 09/09/2019 11:59 PM TOWN MANAGER Hospital Encounter [facility] [address] [place] [address] Tiffanie Nguyen APRN-ELECTROTYPE SERVICER [address] [place] [id number] Discharge Disposition: Home or Self Care Social [...] Reading Time Taken Comments Blood Pressure 121/72 09/09/2019 12:51 PM TOWN MANAGER Pulse 72 09/09/2019 12:51 PM TOWN MANAGER Temperature 36.6 ??C (97.8 ??F) 09/09/2019 1 1:39 AM TOWN MANAGER Respiratory Rate 16 09/09/2019 12:5 1 PM TOWN MANAGER Oxygen Saturation 97% 09/09/2019 12: 51 PM TOWN MANAGER Inhaled Oxygen Concentration - - Weight 118.4 kg (261 lb 1.6 oz) 020 11:39 AM TOWN MANAGER Height - - Body Mass Index 40.29 08/26/2019 12:03 PM TOWN MANAGER documented in this encounter Functional Status [...] as of this encounter Progress Notes * Dayna Cherry, RN - 09/09/2019 12:19 PM CST Post BMBx policy specialist 1. Start 1213 stop 1230 2. Patient received a. Fentanyl 100mcg b. Ativan 0.5mg 3. Vital signs a. Compare to pre procedure vital signs Same WNL 4. Tolerance to procedure a. Complains of no pain b. No significant blood loss 5. Bandage site assessed to be a. Dry and intact 6. 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 Patient education material given a. Care post BMBx teaching sheet given b. Instructions to call BMT clinic for any procedure related complications 8. Disposition a. Patient observed walking in room/clinic without any abnormality MANAGER documented in this encounter Procedure Notes * Tiffanie Nguyen APRN-CNP - 09/09/2019 12:47 PM CST Bone Marrow Procedure Note Indications: pre-auto transplant Anesthesia IV: 100 mcg fentanyl and 0.5 mg ativan Local: lidocaine 1% 10 ml Site: right posterior iliac crest Consent The procedure was discussed in detail with the patient and appropriate consent was obtained. Risks of pain, infection, and bleeding were discussed. A time out was performed for patient safety. Prep Under sterile conditions the site was prepped with chlorhexadine and draped in the usual manner. Technique The site was identified by landmarks. A Jamshedi needle was introduced into the site and aspirationwas performed. Spicules were identified. Slides were prepared. A second aspirate was performed for molecular studies. The needle was then repositioned and a core biopsy was obtained. The site was then cleaned and bandaged. Comments: Patient tolerated the procedure well. EBL: 7 cc for specimens. Complications: None Time start: 1213 Time end: 1230 MISSY Ball- Blood and Marrow Transplant Clinic [facility] MANAGER documented in this encounter Miscellaneous Notes * BMT.03-Data Review Note - Tiffanie Nguyen APRN-CNP - 09/09/2019 11:02 AM TOWN MANAGER Data Review/Case presentation Date entered the [facility] system 05/24/19 Name: Marcello Guillen Date of : 70; 49 y.o. Diagnosis: Relapsed Marginal zone lymphoma Referring physician: Cesar Tavares sap ppm consultant: sister Home address: [address] [place] [id number] Planned lodging location/address: home History of Present Illness Aurelio initially presented in 2017 with LUQ abdominal pain and 30 pound weight loss (admits to being on a diet). CBC completed with WBC 19.2, plts 76k, 94% lymphocytes. PB flow cytometry was consistentwith NHL, CD5 and CD10 negative, suggesting marginal zone lymphoma vs DLBCL. PET CT revealed mild splenomegaly and mediastinal lymphadenopathy. From Apr 2017 through Aug 2017 he completed 6 cycles of R-CHOP. PET CT at end of treatment showed significant improvement in splenomegaly and lymphadenopathy. He was followed with radiology until February 2019 when Aurelio presented with LUQ pain again and was concerned that disease was back. ?? 03/15/[address] that showed moderate splenomegaly and reactive left axillary lymph nodes. BMBx 03/23/19 revealed normocellular marrow with maturing trilineage hematopoiesis and approximately 5-10% involvement by B-cell lymphoma. ?? Oncologic Treatment History: 04/30/17: Cycle 1 CHOP (Rituxan d/c'd due to severe anaphylactic reaction) 05/20: Cycle 2 CHOP 06/13/17: Cycle 3 CHOP 07/03/17: Cycle 4 R-CHOP (tolerated rituxan well) 07/25/17: Cycle 5 R-CHOP 08/21: Cycle 6 R-CHOP ?? 04/20/19: Cycle 1 Bendamustine/Gazyva 05/18/19: Cycle 2 Bendamustine/Gazyva 06/16/19: Cycle 3 Bendamustine/Gazyva 08/17/19: splenectomy performed PAST MEDICAL HISTORY: Atrial fibrillation 2005 (testing negative for unclear) sounds like SVT, received adenosine inpatient, discharged home on ASA only Arthritis Cellulitis to right knee Has the patient ever had a proven INVASIVE fungal infection: No Has the patient ever been intubated previously (not including surgical/procedural intubation): No PAST SURGICAL HISTORY: Skin graft to right pointer finger at age 5, [place] house Splenectomy 08/17/19 PSYCHOSOCIAL HISTORY: Former smoker (quit 2008); chews tobacco Smokes marijuana daily Alcohol use 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 acetaminophen (TYLENOL) 325 MG tablet, Take 2 tablets by mouth every 6 hours as needed for Fever or Pain Maximum allowable Acetaminophen amount = 4 Grams (4000 mg) / 24 hours., Disp: , Rfl: ??? acyclovir (ZOVIRAX) 400 MG tablet, Take 1 tablet by mouth 2 times daily, Disp: 60 tablet, Rfl: 11 ??? BABY ASPIRIN PO, Take 81 mg [...] Take 1 tablet by mouth every 6 hours, Disp: , Rfl: ??? Lansoprazole (PREVACID PO), Take by mouth as needed, Disp: , Rfl: ??? lidocaine-prilocaine (EMLA) 2.5-2.5 % cream, Apply to port site 30-60 mins before use., Disp: ,Rfl: ??? ondansetron, disintegrating, (ZOFRAN ODT) 8 MG tablet, Dissolve 1 tablet on top of tongue then swallow with saliva every 8 hours as needed for nausea or vomiting, Disp: , Rfl: ??? oxyCODONE, immediate release, (ROXICODONE) 5 MG tablet, Take 1 tablet by mouth every 4 hours asneeded for Pain, Disp: 30 tablet, Rfl: 0 ??? penicillin v potassium (VEETIDS) 250 [...] every 6 hours as needed, Disp: ,Rfl: ALLERGIES: Allergies Allergen Reactions ??? Adhesive Sensitivity Urticaria and Other Electrodes -- welps where stickers are Also, use paper tape PHYSICAL EXAMINATION: Vitals: 09/09/19 1139 BP: 123/74 Pulse: 77 Resp: 18 Temp: 97.8 ??F SpO2: 99% Weight: 118.4 kg (261 lb 1.6 oz) Wt Readings from Last 3 Encounters: 09/09/19 118.4 kg (261 lb 1.6 oz) 08/26/19 119.8 kg (264 lb 0.8 oz) 08/26/19 117.5 kg (259 lb) Body mass index is 40.29 kg/m??. Physical Examination: Karnofsky/ECO/1 General appearance - alert, well appearing, and [...] no pedal edema, no clubbing or cyanosis LABORATORY RESULTS: Recent Labs Component Name 09/09/19 1242 08/26/19 1345 08/19/19 0542 08/18/19 0555 WBC 5.7 6.8 8.8 10.6* RBC 4.25* 4.13* 3.97* 3.86* HGB 12.7* 12.2* 12.1* 11.7* HCT 37.8* 36.1* 34.7* 33.3* MCV 88.9 87.4 87.4 86.3 MCH 29.9 29.5 30.5 30.3 MCHC 33.6 33.8 34.9 35.1 PLTCOUNT 489* 628* 161 98* RDWSD 46.2 42.0 43.5 41.3 RDW 14.2 13.1 13.8 13.5 MPV 10.6 9.7 10.6 10.6 NRBCABS 0.00 0.00 0.00 0.00 NRBCAUTOPCT 0.0 0.0 0.0 0.0 NEUTPCT 56.9 68.3 75.3* - LYMPHSPCT 18.9* 11.9* 8.4* - MONOPCT 11.0 10.0 13.4 - EOSPCT 10.2* 7.4* 1.7 - BASOPCT 2.8* 2.1* 0.7 - IMMGRANSPCT 0.2 0.3 0.5 - NEUTABS 3.3 4.6 6.6 8.06* LYMPHS 1.1 0.8 0.7* 1.17 MONO 0.63 0.68* 1.17* 1.38* EOS 0.58* 0.50* 0.15 - BASO 0.16* 0.14* 0.06 - TOTCELLCNT - - - 100 Recent Labs Component Name 09/09/19 1242 08/26/19 1345 08/19/19 0542 BUN 12 11 10 CREATININE 0.9 0.9 1.0 NA 142 141 143 POTASSIUM 4.2 4.7* 3.7 CL 108* 107 108* CO2 23 23 26 GLU 90 83 89 CALCIUM 9.3 9.8 9.2 PROT 6.5 7.0 5.7* ALB 3.8 3.4 3.6 TBILI 0.2 0.2 0.4 ALKPHOS 108 108 68 ALT 36 48 35 AST 20 31 29 ANIONGAP 15 16 13 BCR 13 12 10 OSMOLALITY 293 291 295 AGRATIO 1.4 0.9* 1.7 EGFR >60 >60 >60 Recent Labs Component Name 09/09/19 1242 08/26/19 1345 08/19/19 0542 MAGNESIUM 1.9 1.9 1.7 Recent Labs Component Name 09/09/19 1242 08/26/19 1345 08/19/19 0542 PHOS 3.6 3.2 2.0* Recent Staging/Disease Assessment Bone Marrow Biopsy (09/09/19): Path: Normocellular marrow with maturing trilineage hematopoiesis and non- necrotizing granulomas. AFB and GMS stains negative for AFB and fungal organisms. Flow: No evidence of NHL or high-grade myeloid neoplasm Cyto: normal, 46, XY FISH: pending PET/CT 08/11/19: No evidence of recurrent or residual disease (Deauville 1). Any relative staging testing done pre transplant Disease status at diagnosis form complete Yes Disease status at transplant form completed No, will complete when all testing done PLANNING FOR AUTOLOGOUS TRANSPLANTION: Planned prep schema: BEAM Auto transplant; apheresis Dental evaluation: Panorex: 09/09/19 All teeth are missing. Intact osseous structures. Dental Exam: teeth extracted 08/09/19 Pulmonary evaluation: 08/11/19 DLCOcor: 100 FEV1: [address] Francis 08/26/19 ?? Reversible moderate obstructive ventilatory impairment, no concerns with BEAM conditioning T 6 Minute Walk: walked 422 meters, which is above LLN of 382 meters Chest XR: 09/09/19 No acute pulmonary process is seen. Cardiac evaluation: EK09/09/19 LVEF: 56% 08/11/19 Hepatic evaluation: Fibroscan: 08/11/19 Liver Stiffness: (E, kPa) median: 3.5 IQR (interquartile range): 0.5 IQR/Median% (ideally < 30%): 14 CAP (controlled attenuation parameter): 400 Started ursodiol on: none needed Renal evaluation: Cockroft-Gault Calculation: IBW: 84.68 mL/min ABW: 152.55 mL/min MDRD Calculation: 84.4 mL/min Douglas Quadratic Calculation: 111.04 mL/min/1.73m2 CKD-EPI: 88 mL/min/1.73 m2 Toxicity Screen: Date completed: 07/26/19: positive for cannabinoids and opiates (takes norco). Have had multiple discussions about Aurelio's need to stop smoking marijuana, which he is agreeable to do. Will continue tohave discussions and review with recipient agreement Pre Transplant Labs and IDMs: ?All reviewed, completed and noted to be negative (noted on transplant checklist) ?All reviewed and complete with the following actions based on abnormalities XPending, results will be reported on subsequent note Other Pertinent Tests Date: Result Action taken for abnormal results Ferritin 09/09/19 49 Fibrinogen 09/09/19 365 Vit D 09/09/19 29.0 Start vitamin D Lipid panel Triglycerides Cholesterol 09/09/19 Axvjp=370 Dyzx=632 Monitor post-transplant I have reviewed with the patient and caregiver pre transplant work up including organ function and infectious disease markers. I have addressed any concerns in the systems review. I have read the patient's Health History Questionnaire (HHQ) and have noted any concerns in my systems review. Consents Recipient Agreement (09/14/19) Mobilization consent (09/09/19) Blood consent (09/09/19) Transplant consent TBD I reviewed the above noted consents (those with dates after) fully with the patient and caregiver(s). I allowed the patient and caregiver time to ask questions and answered them all to their satisfaction. The following issues were discussed: taking claritin with mobilization, inpatient chemotherapy. They agree with the information and signed willingly. ID PROPHYLAXIS AND PLANNING: IVIG given 08/18/19 after splenectomy Current and planned prophylaxis: Bacterial: levaquin 500 mg daily starting on day +1; pcn VK 250 mg BID maintain on PCN VK vs Levaquin post-splenectomy until he can be re-vaccinated and adequate titers demonstrated Fungal: fluconazole 400 mg daily with prep start PJP: Bactrim DS MWF upon engraftment Viral: ACV 400 mg BID DVT: prophylactic lovenox when inpatient until plts <50 Liver: fibroscan raised no concerns IVIG not needed Special Planning for apheresis assessment: On DARWIN inhibitor: no On antiplatelet drugs: no Diabetes No Hyper/hypotension: no Deconditioned to the point that they cannot walk 2 flights of stairs: no On blood thinners: no Has a pheresis catheter: no, will be placed prior to mobilization Planning for transplantation Catheter planning, placement, discontinuation of other med port: Cell dose plannin-4 x 10^6 CD34+cells/kg Planned cell dose to infuse: total collection # of Bags planned to be infused to equal the cell dose: TBD DMSO content that will be infused: TBD Infusion plan: inpatient Psych evaluation: not needed Social evaluation 07/14/19 Domain 1 2 3 4 5 Social Support ?1.? Family or Social Support System Stability ? x ?2.? Family or Social Support System Availability ? x Psychological Health ?3.? Psychopathology, Stable Personality Factors ? x?4.? Risk for Psychopathology ? x?? Lifestyle Factors ?5? Healthy Lifestyle, Ability to Sustain Change in Lifestyle?x ?6? Drug and Alcohol Use ? x?7? Compliance with Medications and Medical Advice ? x Understanding of Transplant Follow-up ? 8 Relevant Knowledge and receptiveness to education ? x Final Rating of Candidate Quality 0 poor candidate 1 borderline acceptable under some conditions 2 acceptable w/reservations 3 good candidate 4 excellent candidate ?? 3 good candidate Plan for advanced directives and goal discussion: signed 09/09/19 Physical therapy: will be consulted inpatient Pain management: continue norco; oxycodone when inpatient. Will continue to address on a daily basis OTHER SYSTEMS PROBLEMS: S/P Splenectomy -laparoscopic splenectomy 08/17/19, vaccinated in clinic 08/12/19 -maintain on PCN VK vs Levaquin post-splenectomy until he can be re-vaccinated and adequate titers demonstrated Arthritis -on diclofenac BID -arthritic pain worsened since stopping marijuana, using more Spring (3-4/day) ?? Cardiac History -historical a. Fib,notes are unclear but seems to have been resolved for multiple years. This was along time ago, will need to follow pre-transplant ?? Anxiety/Depression -mood altered more noticeable after stopping marijuana use -lexapro 10 mg daily ?? Marijuana Drug Use -signed recipient agreement willingly 09/14/19 and reports that he stopped use 7 days ago. Understands risks of marijuana use and policy of avoiding use. -continues to be positive (07/26/19), repeated discussions on importance of avoiding drug use. ASSESSMENT: ?? Disease, disease stage, disease status after treatment: stage IV marginal zone lymphoma in CR2 ?? ASBMT RFI category: ?? HCT-CI (autologous): 1 for obesity, 1 for chart history of afib, 1 for anxiety/depression, 3 forPFTs ?? PACT score: 3 (see above) ?? SLU disease risk (autologous) including timing of re-evaluation/release from BMT clinic: PLAN: ?? Proposed transplantation type: BEAM PBSC ?? Infusion considerations: TBD ?? Likely inpatient transplant ?? Disease reassessment: see above ?? Planned post transplant treatment: none planned PROGNOSIS: Aurelio is a young gentleman with an indolent lymphoma, but unfortunately with a short remission duration to aggressive first line therapy with R-CHOP. With initial presentation and recurrence, he was markedly symptomatic from his splenomegaly and it likely accounted for profound thrombocytopenia. Given his young age and aggressive disease presentations, I think intensification of therapy is appropriate. Before going into the rationale for high-dose therapy, we will discuss the rationale for splenectomy. Spleen response has been slower and incomplete with bendamustine/Gazyva therapy. Given that 1) itis the most symptomatic site of disease and 2) that there is a risk of splenic rupture with G-CSF mobilization, we did proceed with splenectomy 08/17/19. Aurelio has had adenopathy and marrow/leukemic involvement by his MZL. His most recent marrow from 06/09/19 (1.5 cycles in to therapy) showed no MZL and it is likely that upcoming pre-transplant marrow will show the same. Even if he did have low-level marrow involvement, we've previously discussed thatthe auto-SCT may not be curative but still could have meaningful benefit in prolonging PFS. In study below by Willie et al (Leuk Lymphoma 2004), patients with overt BM involvement were taken to transplant and may have benefitted as well. There is not a huge literature base on the curative potential of autologous transplant for MZL specifically, but I think it's management can be approached similar to follicular lymphoma. NCCN's treatment algorithm for MZL is similar to follicular lymphoma. The CUP trial in follicular lymphoma showed a clear improvement in progression free survival rate with autologous transplant over salvage chemotherapy in patients with indolent lymphoma histologies at 2 years of 55-58% versus 26% and an update with a median followup of 69 months revealed an improvement in OS (Schouten et al, JCO 2003). Note reference by Willie et al (Leuk Lymphoma 2004). Eleven patients with chemosensitive but disseminated aggressive MZL were treated with Cy/TBI and autologous BM transplantation with mAb B-cell purging. Only 36% of patients were in CR at the time of BM harvest and 36% had overt BM infiltration at the time of BM harvest. Three patients of progressive disease, 1 developed MDS, but 5 remained in continuous CR at the median f/u of 52 months. In their analysis, the only significant predictor of DFS and OS was age at the time of transplant with no patient under 45 relapsing or having NRM. More recent studies have been published on the role of autoSCT in MZL. Jj et al (Br J Haem 2018)published on a group of 199 patients (MALT, funmilayo MZL and splenic MZL included) who under first autoSCT between 4014-2860. Median number of prior therapies was 2 (71% had Rituxan). 95% were chemosensitive. 89% received conditioning with chemo alone (vs TBI). After a median follow-up of 5 years, 5-year cumulative incidence of relapse/progression and non-relapse mortality were 38% and 9%, respectively. Five-year event-free survival (EFS) and overall survival (OS) were 53% and 73%, respectively. Five-year cumulative incidence of second malignancies was 6%. Multivariate analysis revealed age >=65 years was associated with a shorter EFS and OS. In addition, patients with SMZL had a shorter OSthan those with MALT. Giovanna Martinez (Best Pract Res Clin Haem 2017) published a review on autoSCT in MZL. He acknowledges that guidelines suggest autoSCT for FL in 2nd or subsequent remission, and that these can be attributedto MZL. The concern outlined with autoSCT related to indolent lymphomas is secondary malignancies, perhaps compounded by TBI. We would be recommending a chemo-only approach. Becky et al (Clin Lymphoma, Myeloma & Leukemia 2011) reviewed the outcomes of 14 patients with R/RMZL who underwent autoSCT at the [facility] between 4489-0140. At a median f/u of 138 months, median duration of FFS was 108 months, and median duration of OS was 120 months. Unfortunately 3 of these 14 patients did develop secondary malignancies (2 were MDS). Alternatives to therapy would be to continue bendamustine/Gazyva, but this is unlikely to have a durability much longer than R-CHOP. PI3K inhibitors could be considered but are likely a burdensome daily lifelong therapy with still sub- optimal durability for a young patient. The risks of alloSCT likely don't outweigh benefits when comparing to autoSCT as the next step. ?? Alternative therapy with emphasis on BMT rationale in patient perspective: see above ?? Predicted overall survival based on published literature: 2-5 yr OS 60s-70s% ?? Predicted overall progression free survival based on published literature: 2- 5 yr PFS 50s % ?? Predicted overall transplant related mortality based on published literature: 1-3% ?? Predicted rates of overall morbidity based on published literature: infections, GVHD, graft failure - infection high, GVHD n/a, graft failure low This case has been presented at our transfer of care meeting and has undergone peer review. Tiffanie Nguyen, QA AUTOMATION DEVELOPER- Blood and Marrow Transplant Clinic [facility] Hillary Apple MD MSc affiliate manager Interim Director, Division of Hematology/Oncology [facility] REFERENCES: As above PENDING: Will follow FISH results MANAGER documented in this encounter Plan of Treatment Upcoming Encounters Date Type Department Care Team (Late st Contact Info) Description 08/26/2024 11:00 AM TOWN MANAGER Office Visit [facility] - Pulmonology [address] [place] [address], [place] [address] Andrew Francis MD [address] [place] [address] DIV OF PULMONARY/[place] [address] documented as of this encounter Procedures Procedure Name Priority Date/Time Associated Diagnosis Comments NICOTINE METABOLITE URINE Routine 09/09/2019 2:25 PM TOWN MANAGER Pre-transplant evaluation for stem cell transplant URINALYSIS W/MICROSCOPIC NO CULTURE Routine 09/09/2019 2:10 PM TOWN MANAGER Pre-transplant evaluation for stem cell transplant HERPES SIMPLEX 1+2 AB IGG SPEC RFLX HSV2 Routine 09/09/2019 12:42 PM TOWN MANAGER Pre-transplant evaluation for stem cell transplant PTT [facility] Routine 09/09/2019 12:42 PM TOWN MANAGER Pre-transplant evaluation for stem cell transplant PT-INR [facility] Routine 09/09/2019 12:42 PM TOWN MANAGER Pre-transplant evaluation for stem cell transplant CYTOMEGALOVIRUS (CMV) QUANTITATIVE PLASMA Routine 09/09/2019 12:42 PM TOWN MANAGER Pre-transplant evaluation for stem cell transplant DONOR PANEL [id number] Routine 09/09/2019 12 :42 PM TOWN MANAGER Pre-transplant evaluation for stem cell transplant QUANTIFERON-TB GOLD PLUS 4-TUBE Routine 09/09/2019 12:42 PM TOWN MANAGER Pre-transplant evaluation for stem cell transplant URIC ACID BLOOD Routine 09/09/2019 12:42 PM TOWN MANAGER Pre-transplant evaluation for stem cell transplant ISA-GILL VIRUS ANTIBODY TO VCA IGM Routine 09/09/2019 12:42 PM TOWN MANAGER Pre-transplant evaluation for stem cell transplant VARICELLA ZOSTER ANTIBODY IGM Routine 09/09/2019 12:42 PM TOWN MANAGER Pre-transplant evaluation for stem cell transplant TRANSFERRIN Routine 09/09/2019 12:42 PM TOWN MANAGER Pre-transplant evaluation for stem cell transplant TOXOPLASMA GONDII ANTIBODY IGG Routine 09/09/2019 12:42 PM TOWN MANAGER Pre-transplant evaluation for stem cell transplant ISA-GILL VIRUS ANTIBODY TO VCA IGG Routine 09/09/2019 12:42 PM TOWN MANAGER Pre-transplant evaluation for stem cell transplant VITAMIN D 25-HYDROXY Routine 09/09/2019 12:42 PM TOWN MANAGER Pre-transplant evaluation for stem cell transplant TYPE + SCREEN PANEL Routine 09/09/2019 1 2:42 PM TOWN MANAGER Pre-transplant evaluation for stem cell transplant FIBRINOGEN ACTIVITY Routine 09/09/2019 1 2:42 PM TOWN MANAGER Pre-transplant evaluation for stem cell transplant SICKLE CELL SCREEN Routine 09/09/2019 12 :42 PM TOWN MANAGER Pre-transplant evaluation for stem cell transplant RETIC COUNT Routine 09/09/2019 12:42 PM TOWN MANAGER Pre-transplant evaluation for stem cell transplant CBC W AUTO DIFFERENTIAL Routine 09/09/19 20 12:42 PM TOWN MANAGER B-cell lymphoma, unspecified B-cell lymphoma type, unspecified body region (HCC) TRIGLYCERIDES BLOOD Routine 09/09/2019 1 2:42 PM TOWN MANAGER Pre-transplant evaluation for stem cell transplant COMPREHENSIVE METABOLIC PANEL Routine 09/09/2019 12:42 PM TOWN MANAGER B-cell lymphoma, unspecified B-cell lymphoma type, unspecified body region (HCC) PROSTATE SPECIFIC ANTIGEN SCREEN Routine 09/09/2019 12:42 PM TOWN MANAGER Pre-transplant evaluation for stem cell transplant PHOSPHORUS BLOOD Routine 09/09/2019 12:4 2 PM TOWN MANAGER Pre-transplant evaluation for stem cell transplant MAGNESIUM BLOOD Routine 09/09/2019 12:42 PM TOWN MANAGER Pre-transplant evaluation for stem cell transplant LDH BLOOD Routine 09/09/2019 12:42 PM TOWN MANAGER Pre-transplant evaluation for stem cell transplant IRON BLOOD Routine 09/09/2019 12:42 PM TOWN MANAGER Pre-transplant evaluation for stem cell transplant HEPATITIS B SURFACE ANTIBODY Routine 09/09/2019 12:42 PM TOWN MANAGER Pre-transplant evaluation for stem cell transplant CHOLESTEROL BLOOD Routine 09/09/2019 12: 42 PM TOWN MANAGER Pre-transplant evaluation for stem cell transplant HEPATITIS C ANTIBODY Routine 09/09/2019 12:42 PM TOWN MANAGER Pre-transplant evaluation for stem cell transplant HEPATITIS A IGM ANTIBODY Routine 09/09/2019 12:42 PM TOWN MANAGER Pre-transplant evaluation for stem cell transplant HEPATITIS A ANTIBODY Routine 09/09/2019 12:42 PM TOWN MANAGER Pre-transplant evaluation for stem cell transplant FERRITIN Routine 09/09/2019 12:42 PM TOWN MANAGER Pre-transplant evaluation for stem cell transplant HSV 2 IGG CONFIRMATION RFLXED Routine 09/09/2019 12:41 PM TOWN MANAGER Pre-transplant evaluation for stem cell transplant CYTOMEGALOVIRUS ANTIBODY IGM BLOOD Routine 09/09/2019 12:41 PM TOWN MANAGER Pre-transplant evaluation for stem cell transplant CYTOMEGALOVIRUS ANTIBODY IGG BLOOD Routine 09/09/2019 12:41 PM TOWN MANAGER Pre-transplant evaluation for stem cell transplant HERPES SIMPLEX 1+2 ANTIBODY IGG/IGM PANEL Routine 09/09/2019 12:41 PM TOWN MANAGER Pre-transplant evaluation for stem cell transplant VARICELLA ZOSTER ANTIBODY IGG Routine 09/09/2019 12:41 PM TOWN MANAGER Pre-transplant evaluation for stem cell transplant HEPATITIS B CORE ANTIBODY TOTAL Routine 09/09/2019 12:41 PM TOWN MANAGER Pre-transplant evaluation for stem cell transplant HEPATITIS B SURFACE ANTIGEN W RFLX CONFIRMATION Routine 09/09/2019 12:41 PM TOWN MANAGER Pre-transplant evaluation for stem cell transplant IGM BLOOD Routine 09/09/2019 12:41 PM TOWN MANAGER Pre-transplant evaluation for stem cell transplant IGG BLOOD Routine 09/09/2019 12:41 PM TOWN MANAGER Pre-transplant evaluation for stem cell transplant IGA BLOOD Routine 09/09/2019 12:41 PM TOWN MANAGER Pre-transplant evaluation for stem cell transplant FLOW CYTOMETRY BONE MARROW Routine 09/09/2019 12:30 PM TOWN MANAGER B-cell lymphoma, unspecified B-cell lymphoma type, unspecified body region (HCC) HOLD SPECIMEN DNA TISSUE Routine 09/09/2019 12:30 PM TOWN MANAGER B-cell lymphoma, unspecified B-cell lymphoma type, unspecified body region (HCC) BONE MARROW BIOPSY (STL) Routine 09/09/2019 12:30 PM TOWN MANAGER B-cell lymphoma, unspecified B-cell lymphoma type, unspecified body region (HCC) FISH LYMPHOMA (AGGRESSIVE) PANEL Routine 09/09/2019 12:30 PM TOWN MANAGER B-cell lymphoma, unspecified B-cell lymphoma type, unspecified body region (HCC) CHROMOSOME ANALYSIS BONE MARROW PANEL Routine 09/09/2019 12:30 PM TOWN MANAGER B-cell lymphoma, unspecified B-cell lymphoma type, unspecified body region (HCC) documented in this encounter Results * COTININE, URINE (09/09/2019 2:25 PM TOWN MANAGER) Pathologist [facility] Cotinine Urine Negative Cutoff=30 0 ng/mL 09/10/2019 7:07 PM TOWN MANAGER [facility] ([facility]) Drug Screen Comment Comment 09/10 7:07 PM TOWN MANAGER [facility] ([facility]) Comment: This analysis is performed by immunoassay. Positive findings are unconfirmed analytical test results; if results do not support expected clinical finding, confirmation by an alternate methodology is recommended. Patient metabolic variables, specific drug chemistry, and specimen characteristics can affect test outcome. Technical consultation is available at [email or web address], or call toll free [phone]. Urine URINE SPECIMEN OBTAINED BY CLEAN CATCH PROCEDURE / Unknown Collection / Unknown 09/09/2019 2:25 PM TOWN MANAGER 09/09/2019 2:25 PM TOWN MANAGER Narrative [facility] ([facility]) - 09/10/2019 7:07 PM TOWN MANAGER Performed at: ??01 - [facility] [address] [place], [place] ??[id number] Cemetery Counselor: John Escalera PhD, Phone: ??[phone] Performed at: ??02 - [facility] [address] [place], [place] ??[id number] Cemetery Counselor: Constantino Linares PhD, Phone: ??[phone] Tiffanie Nguyen ESTHETICIAN FACIALIST-ELECTROTYPE SERVICER LAB - URINE LINDA MIRIAN ORDERABLES [facility] ([facility]) [address] [place] [address], [facility] * (ABNORMAL) URINALYSIS W/MICROSCOPIC NO CULTURE (09/09/2019 2:10 PM TOWN MANAGER) Pathologist [facility] Color UA Yellow Straw, Yellow, Colorless 09/09/2019 2:19 PM TOWN MANAGER [facility] Clarity UA Clear Clear, Slt Cloudy 09/09/2019 2:19 PM [facility] Specific [place] UA 1.017 1.005 - 1.030 09/09/2019 2:19 PM [facility] pH UA 5.0 5.0 - 8.0 pH 09/09/2019 2:19 PM [facility] Protein UA Negative Negative mg/dL 09/09/2019 2:19 PM [facility] Glucose UA Negative Negative mg/dL 09/09/2019 2:19 PM [facility] Ketone UA Negative Negative mg/dL 09/09/2019 2:19 PM [facility] Bilirubin UA Negative Negative mg/dL 09/09/2019 2:19 PM [facility] Blood UA Negative Negative 09/09/2019 2:19 PM [facility] Nitrite UA Negative Negative 09/09/2019 2:19 PM [facility] Leukocyte Esterase Negative Negative 09/09/2019 2:19 PM [facility] Urobilinogen UA Negative Negative mg/dL 09/09/2019 2:19 PM [facility] RBC UA 0-2 None Seen, 0-2, 3-5 /HPF 09/09/2019 2:19 PM [facility] WBC UA 0-5 None Seen, 0-5 /HPF 09/09/2019 2:19 PM [facility] Bacteria UA Trace None, Trace /HPF 09/09/2019 2:19 PM [facility] Squamous Epithelial Cells UA 0-2 None Seen, 0-2 /HPF 09/09/2019 2:19 PM [facility] Mucus UA 1+ None, 1+ /LPF 09/09/2019 2:19 PM [facility] Hyaline Casts UA 3-5(A) None Seen, 0-2 /LPF 09/09/2019 2:19 PM [facility] Urine URINE SPECIMEN OBTAINED BY CLEAN CATCH PROCEDURE / Unknown Collection / Unknown 09/09/2019 2:10 PM TOWN MANAGER 09/09/2019 2:10 PM [facility] - 09/09/2019 2:19 PM TOWN MANAGER Tiffanie Nguyen ESTHETICIAN FACIALIST-ELECTROTYPE SERVICER LAB - URINALYSI S ORDERABLES [facility] [address] [phone] * (ABNORMAL) COMPREHENSIVE METABOLIC PANEL (09/09/2019 12:42 PM TOWN MANAGER) BUN 12 7 - 26 mg/dL 09/09/2019 1:15 PM [facility] Creatinine 0.9 0.6 - 1.2 mg/dL 09/09/2019 1:15 PM [facility] Sodium 142 136 - 145 mmol/L 09/09/2019 1:15 PM [facility] Potassium 4.2 3.5 - 4.5 mmol/L 09/09/2019 1:15 PM [facility] Chloride 108(H) 98 - 107 mmol/L 09/09/2019 1:15 PM [facility] CO2 23 22 - 29 mmol/L 09/09/2019 1:15 PM [facility] Glucose 90 70 - 115 mg/dL 09/09/2019 1:15 PM [facility] Calcium 9.3 8.4 - 10.2 mg/dL 09/09/2019 1:15 PM [facility] Protein Total 6.5 6.0 - 8.3 g/dL 09/09/2019 1:15 PM [facility] Albumin 3.8 3.4 - 5.0 g/dL 09/09/2019 1:15 PM [facility] Bilirubin Total 0.2 0.2 - 1.2 mg/dL 09/09/2019 1:15 PM [facility] Alkaline Phosphatase 108 40 - 150 Units/L 09/09/2019 1:15 PM [facility] ALT 36 0 - 55 Units/L 09/09/2019 1:15 PM [facility] AST 20 5 - 34 Units/L 09/09/2019 1:15 PM [facility] Anion Gap 15 8 - 18 09/09/2019 1:15 PM [facility] BUN/Creatinine Ratio 13 7 - 23 09/09/2019 1:15 PM [facility] Osmolality Calculated 293 270 - 300 mOsm/kg 09/09/2019 1:15 PM [facility] Albumin/Globulin Ratio 1.4 1.1 - 2.3 09/09/2019 1:15 PM [facility] eGFR >60 >60 mL/min/1.7 3 m2 09/09/2019 1:15 PM [facility] Blood BLOOD SPECIMEN / Unknown Venipuncture / Unknown 09/09/2019 12:42 PM TOWN MANAGER 09/09/2019 12:50 PM TOWN MANAGER Debora Morgan ESTHETICIAN FACIALIST-ELECTROTYPE SERVICER LAB - CHEMISTRY ORDERABLES Performing Organization Address City/State/[facility] Co de Phone Number [facility] [address] [place] [address] * (ABNORMAL) CBC WITH DIFFERENTIAL (09/09/2019 12:42 PM TOWN MANAGER) WBC 5.7 3.5 - 10.5 10? 3 /uL 09/09/2019 1:00 PM [facility] RBC 4.25(L) 4.30 - 5.70 10? 6 /uL 09/09/2019 1:00 PM [facility] Hemoglobin 12.7(L) 13.5 - 17.5 g/dL 09/09/2019 1:00 PM [facility] Hematocrit 37.8(L) 39.0 - 50.0 % 09/09/2019 1:00 PM [facility] MCV 88.9 81.0 - 97.0 fL 09/09/2019 1:00 PM [facility] MCH 29.9 28.0 - 34.0 pg 09/09/2019 1:00 PM [facility] MCHC 33.6 32.0 - 36.0 g/dL 09/09/2019 1:00 PM [facility] Platelet Count 489(H) 150 - 400 10? 3 /uL 09/09/2019 1:00 PM [facility] RDW-SD 46.2 36.0 - 50.0 fL 09/09/2019 1:00 PM [facility] RDW-CV 14.2 11.2 - 14.8 % 09/09/2019 1:00 PM [facility] MPV 10.6 9.3 - 12.8 fL 09/09/2019 1:00 PM [facility] nRBC Absolute 0.00 0 10? 3 /uL 09/09/2019 1:00 PM [facility] nRBC Auto 0.0 0 /100 WBC 09/09/2019 1:00 PM [facility] Neutrophils % 56.9 35.0 - 70.0 % 09/09/2019 1:00 PM [facility] Lymphocytes % 18.9(L) 19.7 - 55.1 % 09/09/2019 1:00 PM [facility] Monocytes % 11.0 3.0 - 15.0 % 09/09/2019 1:00 PM [facility] Eosinophils % 10.2(H) 0.0 - 6.0 % 09/09/2019 1:00 PM [facility] Basophil % 2.8(H) 0.0 - 1.5 % 09/09/2019 1:00 PM [facility] Neutrophils Absolute 3.3 1.6 - 7.0 10? 3 /uL 09/09/2019 1:00 PM [facility] Lymphocyte Absolute 1.1 0.8 - 2.9 10? 3 /uL 09/09/2019 1:00 PM [facility] Monocytes Absolute 0.63 0.14 - 0.66 10? 3 /uL 09/09/2019 1:00 PM [facility] Eosinophils Absolute 0.58(H) 0.00 - 0.45 10? 3 /uL 09/09/2019 1:00 PM [facility] Basophils Absolute 0.16(H) 0.00 - 0.06 10? 3 /uL 09/09/2019 1:00 PM [facility] Immature Granulocytes % 0.2 0.0 - 1.0 % 09/09/2019 1:00 PM [facility] Blood BLOOD SPECIMEN / Unknown Venipuncture / Unknown 09/09/2019 12:42 PM TOWN MANAGER 09/09/2019 12:50 PM TOWN MANAGER Debora Morgan ESTHETICIAN FACIALIST-ELECTROTYPE SERVICER LAB - HEMATOLOGY ORDERABLES [address] [phone] * (ABNORMAL) VITAMIN D 25-HYDROXY (09/09/2019 12:42 PM TOWN MANAGER) Vitamin D, 25 Hydroxy 29.0(L) See comment: ng/mL 09/09/2019 1:50 PM TOWN MANAGER [facility] Comment: The recommendations for 25-Hydroxy [...] Unknown Venipuncture / Unknown 09/09/2019 12:42 PM TOWN MANAGER 09/09/2019 12:50 PM TOWN MANAGER Tiffanie Nguyen ESTHETICIAN FACIALIST-ELECTROTYPE SERVICER LAB - CHEMISTRY ORDERABLES Performing Organization Address [facility]/State/[facility] Co de Phone Number [address] [phone] * VARICELLA ZOSTER ANTIBODY IGM (09/09/2019 12:42 PM TOWN MANAGER) Varicella zoster Virus Antibody IgM <0.91 0.00 - 0.90 index 09/10/2019 3:08 PM TOWN MANAGER [facility] ([facility]) Comment: ? Negative ?<0.91 ? Borderline ??0.91 - 1.09 ? Positive ?>1.09 Blood BLOOD SPECIMEN / Unknown Venipuncture / Unknown 09/09/2019 12:42 PM TOWN MANAGER 09/09/2019 12:51 PM TOWN MANAGER Narrative [facility] ([facility]) - 09/10/2019 3:08 PM TOWN MANAGER Performed at: ??01 - [facility] [address] [facility], [place], [place] ??[id number] Cemetery Counselor: Constantino Linares PhD, Phone: ??[phone] Tiffanie Nguyen [facility] LAB - CHEMISTRY ORDERABLES Performing Organization Address [facility] Co de Phone Number [facility] ([facility]) [address] [place] [address] * URIC ACID BLOOD (09/09/2019 12:42 PM TOWN MANAGER) Uric Acid 6.4 2.6 - 7.2 mg/dL 09/09/2019 1:26 PM TOWN MANAGER [facility] Blood BLOOD SPECIMEN / Unknown Venipuncture / Unknown 09/09/2019 12:42 PM TOWN MANAGER 09/09/2019 12:50 PM TOWN MANAGER Tiffanie Nguyen [facility] LAB - CHEMISTRY ORDERABLES Performing Organization Address [facility]/ZIP Co de Phone Number [address] [phone] * TYPE + SCREEN PANEL (09/09/2019 12:42 PM TOWN MANAGER) Antibody Screen NEG 0 1:33 PM TOWN MANAGER [facility] ABO Rh A POS 09/09/2019 1:33 PM TOWN MANAGER [facility] Blood Bank BLOOD SPECIMEN / Unknown Venipuncture / Unknown 09/09/2019 12:42 PM TOWN MANAGER 09/09/2019 12:52 PM TOWN MANAGER Tiffanie Alvess [facility] LAB - BLOOD BAN K ORDERABLES [facility] [address] * (ABNORMAL) TRIGLYCERIDES BLOOD (09/09/2019 12:42 PM TOWN MANAGER) [facility] Triglycerides 192(H) <150 mg/dL 09/09/2019 1:26 PM TOWN MANAGER [facility] Comment: ATP III Classification of Triglycerides: ?<150 mg/dL: ??Normal ? 150 - 199 mg/dL: ??Borderline High ? 200 - 400 mg/dL: ??High ?>500 mg/dL: ??Very High Blood BLOOD SPECIMEN / Unknown Venipuncture / Unknown 09/09/2019 12:42 PM TOWN MANAGER 09/09/2019 12:50 PM TOWN MANAGER Tiffanie Nguyen ESTHETICIAN FACIALIST-ELECTROTYPE SERVICER LAB - CHEMISTRY ORDERABLES Performing Organization Address [facility]/ZIP Co de Phone Number [address] [phone] * (ABNORMAL) TRANSFERRIN (09/09/2019 12:42 PM TOWN MANAGER) [facility] Transferrin 227 174 - 382 mg/dL 09/09/2019 1:18 PM [facility] Transferrin Saturation % 15(L) 16 - 50 % 09/09/2019 1:18 PM TOWN MANAGER [facility] Blood BLOOD SPECIMEN / Unknown Venipuncture / Unknown 09/09/2019 12:42 PM TOWN MANAGER 09/09/2019 12:51 PM TOWN MANAGER [facility] ESTHETICIAN FACIALIST-ELECTROTYPE SERVICER LAB - CHEMISTRY ORDERABLES Performing Organization Address [facility]/ZIP Co de Phone Number [address] [phone] * TOXOPLASMA GONDII ANTIBODY IGG (09/09/2019 12:42 PM TOWN MANAGER) [facility] Toxoplasma gondii Antibody IgG Quantitative <3.0 0.0 - 7.1 IU/mL 09/10/2019 9:09 AM TOWN MANAGER [facility] ([facility]) Comment: ? Negative ?<7.2 ? Equivocal ??7.2 - 8.7 ? Positive ?>8.7 Blood BLOOD SPECIMEN / Unknown Venipuncture / Unknown 09/09/2019 12:42 PM TOWN MANAGER 09/09/2019 12:51 PM TOWN MANAGER Narrative [facility] ([facility]) - 09/10/2019 9:09 AM TOWN MANAGER Performed at: ??01 - [facility] [address] [place], [place] ??[id number] Cemetery Counselor: Constantino Linares PhD, Phone: ??[phone] Tiffanie Nguyen APRN-ELECTROTYPE SERVICER LAB - CHEMISTRY ORDERABLES Performing Organization Address [facility] Co de Phone Number [facility] ([facility]) [address] [place] [address], [facility] * SICKLE CELL SCREEN (09/09/2019 12:42 PM TOWN MANAGER) [facility] Sickle Cell Screen Negative Negative 09/09/2019 1:17 PM TOWN MANAGER [facility] Blood BLOOD SPECIMEN / Unknown Venipuncture / Unknown 09/09/2019 12:42 PM TOWN MANAGER 09/09/2019 12:50 PM TOWN MANAGER Tiffanie Nguyen ESTHETICIAN FACIALIST-ELECTROTYPE SERVICER LAB - HEMATOLOG Y ORDERABLES Performing Organization Address City/[facility]/ZIP Co de Phone Number [facility] [address] [place] [address] * RETIC COUNT (09/09/2019 12:42 PM TOWN MANAGER) [facility] Reticulocyte % 1.9 0.4 - 2.5 % 09/09/2019 1:06 PM [facility] Reticulocyte Absolute 0.08 0.02 - 0.13 10? 6 /uL 09/09/2019 1:06 PM [facility] Blood BLOOD SPECIMEN / Unknown Venipuncture / Unknown 09/09/2019 12:42 PM TOWN MANAGER 09/09/2019 12:50 PM TOWN MANAGER Tiffanie Nguyen ESTHETICIAN FACIALIST-ELECTROTYPE SERVICER LAB - HEMATOLOG Y ORDERABLES [address] [phone] * QUANTIFERON-TB GOLD PLUS 4-TUBE (09/09/2019 12:42 PM TOWN MANAGER) [facility] QuantiFERON Criteria Comment 09/13/2019 12:06 AM TOWN MANAGER [facility] ([facility]) Comment: The QuantiFERON-TB Gold Plus result is determined by subtracting the Nil value from either TB antigen (Ag) tube. The mitogen tube serves as a control for the test. QuantiFERON TB1 Ag Value 0.25 IU/mL 09/13/2019 12:06 AM TOWN MANAGER [facility] ([facility]) QuantiFERON TB2 Ag Value 0.09 IU/mL 09/13/2019 12:06 AM TOWN MANAGER [facility]) QuantiFERON Nil Value 0.03 IU/mL 09/13/2019 12:06 AM TOWN MANAGER [facility]) QuantiFERON Mitogen Value >10.00 IU/mL 09/13/2019 12:06 AM TOWN MANAGER [facility]) QuantiFERON-TB Gold Plus Negative Negative 09/13/2019 12:06 AM TOWN MANAGER [facility] ([facility]) Comment: The specimen received for QuantiFERON testing was incubated by the ordering institution. ??Specific procedures outlined in our Directory of Services and in the package insert for the QuantiFERON Gold (In Tube) test must be followed to enable for proper stimulation of cells for the production of interferon gamma. Blood BLOOD SPECIMEN / Unknown Venipuncture / Unknown 09/09/2019 12:42 PM TOWN MANAGER 09/09/2019 1:20 PM TOWN MANAGER Narrative [facility] ([facility]) - 09/13/2019 12:06 AM TOWN MANAGER Performed at: ??01 - [facility] [address] [place], [place] ??[id number] Cemetery Counselor: Constantino Linares PhD, Phone: ??[phone] Tiffanie Nguyen ESTHETICIAN FACIALIST-ELECTROTYPE SERVICER LAB - CHEMISTRY ORDERABLES Performing Organization Address City/[facility]/ZIP Co de Phone Number [facility] ([facility]) [address] [place] [address], [facility] * PTT [facility] (09/09/2019 12:42 PM TOWN MANAGER) APTT 27.4 23.0 - 38.4 Seconds 09/09/2019 1:17 PM TOWN MANAGER [facility] Comment: * Please Note: ??New therapeutic range for heparin therapy * Suggested therapeutic range for full dose I.V. unfractionated heparin therapy for venous thromboembolism is 71 to 109 seconds. Blood BLOOD SPECIMEN / Unknown Venipuncture / Unknown 09/09/2019 12:42 PM TOWN MANAGER 09/09/2019 12:50 PM TOWN MANAGER Tiffanie Nguyen ESTHETICIAN FACIALIST-ELECTROTYPE SERVICER LAB - COAGULATI ON ORDERABLES [address] [phone] * PT-INR [facility] (09/09/2019 12:42 PM TOWN MANAGER) PT 12.9 12.1 - 14.8 Seconds 09/09/2019 1:16 PM TOWN MANAGER [facility] INR 1.0 See Comment 09/09/2019 1:16 PM TOWN MANAGER [facility] Comment: The suggested therapeutic range for standard coumadin (warfarin) therapy is an INR of 2.0-3.0. For high-risk patients (Mechanical Mitral Valve Prosthesis, etc.), the suggested prophylactic therapeutic range is an INR of 2.5-3.5. Blood BLOOD SPECIMEN / Unknown Venipuncture / Unknown 09/09/2019 12:42 PM TOWN MANAGER 09/09/2019 12:50 PM TOWN MANAGER Tiffanie Nguyen APRNERIKA LAB - COAGULATI ON ORDERABLES [address] [phone] * PROSTATE SPECIFIC ANTIGEN SCREEN (09/09/2019 12:42 PM TOWN MANAGER) PSA Total 2.7 0.0 - 4.0 ng/mL 09/09/2019 1:35 PM TOWN MANAGER [facility] Blood BLOOD SPECIMEN / Unknown Venipuncture / Unknown 09/09/2019 12:42 PM TOWN MANAGER 09/09/2019 12:50 PM TOWN MANAGER Tiffanie Nguyen [facility] LAB - CHEMISTRY ORDERABLES Performing Organization Address [facility]/ZIP Co de Phone Number [address] [phone] * PHOSPHORUS BLOOD (09/09/2019 12:42 PM TOWN MANAGER) Phosphorus 3.6 2.3 - 4.7 mg/dL 09/09/2019 1:14 PM TOWN MANAGER [facility] Blood BLOOD SPECIMEN / Unknown Venipuncture / Unknown 09/09/2019 12:42 PM TOWN MANAGER 09/09/2019 12:50 PM TOWN MANAGER Tiffanie Nguyen [facility] LAB - CHEMISTRY ORDERABLES [address] [phone] * MAGNESIUM BLOOD (09/09/2019 12:42 PM TOWN MANAGER) [facility] Magnesium 1.9 1.6 - 2.6 mg/dL 09/09/2019 1:14 PM TOWN MANAGER [facility] Blood BLOOD SPECIMEN / Unknown Venipuncture / Unknown 09/09/2019 12:42 PM TOWN MANAGER 09/09/2019 12:50 PM TOWN MANAGER Tiffanie Nguyen ESTHETICIAN FACIALISTPur[employer] LAB - CHEMISTRY ORDERABLES Performing Organization Address City/[facility]/ZIP Co de Phone Number [address] [phone] * LDH BLOOD (09/09/2019 12:42 PM TOWN MANAGER) [facility] LDH Total 198 125 - 243 Units/L 09/09/2019 1:15 PM TOWN MANAGER [facility] Blood BLOOD SPECIMEN / Unknown Venipuncture / Unknown 09/09/2019 12:42 PM TOWN MANAGER 09/09/2019 12:50 PM TOWN MANAGER Tiffanie Nguyen ESTHETICIAN FACIALIST-ELECTROTYPE SERVICER LAB - CHEMISTRY ORDERABLES Performing Organization Address [facility] Co de Phone Number [address] [phone] * (ABNORMAL) IRON BLOOD (09/09/2019 12:42 PM TOWN MANAGER) [facility] Iron 43(L) 50 - 175 mcg/dL 09/09/2019 1:18 PM TOWN MANAGER [facility] Blood BLOOD SPECIMEN / Unknown Venipuncture / Unknown 09/09/2019 12:42 PM TOWN MANAGER 09/09/2019 12:51 PM TOWN MANAGER Tiffanie Nguyen ESTHETICIAN FACIALIST-ELECTROTYPE SERVICER LAB - CHEMISTRY ORDERABLES Performing Organization Address [facility] Co de Phone Number [address] [phone] * (ABNORMAL) HERPES SIMPLEX 1+2 AB IGG SPEC RFLX HSV2 (09/09/2019 12:42 PM TOWN MANAGER) [facility] Herpes Simplex Virus I Antibody IgG Type Specific Index 9.65(H) 0.00 - 0.90 index 09/10/2019 9:09 AM TOWN MANAGER [facility] ([facility]) Comment: ? Negative ?<0.91 ? Equivocal 0.91 - 1.09 ? Positive ?>1.09 Note: Negative indicates no antibodies detected to HSV-1. Equivocal may suggest early infection. ??If clinically appropriate, retest at later date. Positive indicates antibodies detected to HSV-1. Herpes Simplex Virus 2 Antibody IgG Type Specific <0.91 0.00 - 0.90 index 09/10/2019 9:09 AM TOWN MANAGER [facility] ([facility]) Comment: ? Negative ?<0.91 ? Equivocal 0.91 - 1.09 ? Positive ?>1.09 Note: Negative indicates no antibodies detected to HSV-2. Equivocal may suggest early infection. ??If clinically appropriate, retest at later date. Positive indicates antibodies detected to HSV-2. Blood BLOOD SPECIMEN / Unknown Venipuncture / Unknown 09/09/2019 12:42 PM TOWN MANAGER 09/09/2019 12:51 PM TOWN MANAGER Narrative [facility] ([facility]) - 09/10/2019 9:09 AM TOWN MANAGER Performed at: ??01 - [facility] [address] ??[id number] Cemetery Counselor: Constantino Linares PhD, Phone: ??[phone] Tiffanie Nguyen ESTHETICIAN FACIALIST-ELECTROTYPE SERVICER LAB - SEROLOGY ORDERABLES [facility] ([facility]) [address] [place] [address] * HEPATITIS C ANTIBODY (09/09/2019 12:42 PM TOWN MANAGER) Hepatitis C Antibody Non-react robyn Non-reac tive 09/09/2019 1:46 PM TOWN MANAGER [facility] Comment: Hepatitis C Antibody screen [...] Unknown Venipuncture / Unknown 09/09/2019 12:42 PM TOWN MANAGER 09/09/2019 12:51 PM TOWN MANAGER Tiffanie Nguyen ESTHETICIAN FACIALIST-[facility] LAB - CHEMISTRY ORDERABLES Performing Organization Address [facility]/ZIP Co de Phone Number [address] [phone] * (ABNORMAL) HEPATITIS B SURFACE ANTIBODY (09/09/2019 12:42 PM TOWN MANAGER) Pathologist [facility] Hepatitis B Virus Surface Antibody Reactive( A) Non-react robyn 09/09/2019 1:46 PM TOWN MANAGER [facility] Comment: > 12 mIU/mL Hepatitis B surface Antibody (HBsAb). Reactive for HBsAb - individual is considered immune to Hepatitis B Virus infection. Hepatitis B Surface Antibody Quantitative 156.2(H) <8.0 mIU/mL 09/09/2019 1:46 PM TOWN MANAGER [facility] Comment: Hepatitis B Surface Antibody Numeric Result Interpretation: ? Nonreactive: ?<8.0 mIU/mL ? Indeterminate: ??8.0 - 12.0 mIU/mL ? Reactive: ?>12.0 mIU/mL ? Blood BLOOD SPECIMEN / Unknown Venipuncture / Unknown 09/09/2019 12:42 PM TOWN MANAGER 09/09/2019 12:51 PM TOWN MANAGER Tiffanie Nguyen ESTHETICIAN FACIALIST-[facility] LAB - CHEMISTRY ORDERABLES [address] [phone] * HEPATITIS A IGM ANTIBODY (09/09/2019 12:42 PM TOWN MANAGER) Pathologist [facility] Hepatitis A Virus Antibody IgM Non-reacti ve Non-reacti ve 09/09/2019 1:46 PM TOWN MANAGER [facility] Blood BLOOD SPECIMEN / Unknown Venipuncture / Unknown 09/09/2019 12:42 PM TOWN MANAGER 09/09/2019 12:51 PM TOWN MANAGER Tiffanie Nguyen [facility] LAB - CHEMISTRY ORDERABLES Performing Organization Address [facility]/ZIP Co de Phone Number [address] [phone] * (ABNORMAL) HEPATITIS A ANTIBODY (09/09/2019 12:42 PM TOWN MANAGER) [facility] Hepatitis A Virus Antibody Total Positive(A ) Negative 09/10/2019 9:09 AM TOWN MANAGER [facility] ([facility]) Blood BLOOD SPECIMEN / Unknown Venipuncture / Unknown 09/09/2019 12:42 PM TOWN MANAGER 09/09/2019 12:51 PM TOWN MANAGER Narrative [facility] ([facility]) - 09/10/2019 9:09 AM TOWN MANAGER Performed at: ??01 - [facility] [address] [place], [place] ??[id number] Cemetery Counselor: Constantino Linares PhD, Phone: ??[phone] Tiffanie Nguyen ESTHETICIAN [facility] LAB - CHEMISTRY ORDERABLES Performing Organization Address City/[facility]/ZIP Co de Phone Number [facility] ([facility]) [address] [place] [address], [facility] * FIBRINOGEN ACTIVITY (09/09/2019 12:42 PM TOWN MANAGER) [facility] Fibrinogen Clauss 365 200 - 400 mg/dL 09/09/2019 1:17 PM TOWN MANAGER [facility] Blood BLOOD SPECIMEN / Unknown Venipuncture / Unknown 09/09/2019 12:42 PM TOWN MANAGER 09/09/2019 12:50 PM TOWN MANAGER Tiffanie Nguyen ESTHETICIAN FACIALIST-[employer] LAB - COAGULATI ON ORDERABLES [address] [phone] * FERRITIN (09/09/2019 12:42 PM TOWN MANAGER) [facility] Ferritin 49 22 - 275 ng/mL 09/09/2019 1:38 PM TOWN MANAGER [facility] Blood BLOOD SPECIMEN / Unknown Venipuncture / Unknown 09/09/2019 12:42 PM TOWN MANAGER 09/09/2019 12:51 PM TOWN MANAGER Tiffanie Nguyen ESTHETICIAN FACIALIST-ELECTROTYPE SERVICER LAB - CHEMISTRY ORDERABLES [address] [phone] * ISA-GILL VIRUS ANTIBODY TO VCA IGM (09/09/2019 12:42 PM TOWN MANAGER) [facility] Isa-Gill Virus Antibody IgM Viral Capsid Antigen <10.0 0.0 - 43.9 U/mL 09/10/2019 4:34 PM TOWN MANAGER [facility] ([facility]) Comment: INTERPRETIVE INFORMATION: Isa-Gill Virus Antibody to ?Viral Capsid Antigen, IgM ??35.9 U/mL or less.......Not Detected ?36.0-43.9 U/mL..........Indeterminate - Repeat testing in ?10-14 days may be helpful. ??44.0 U/mL or greater....Detected Performed by [email or web address], [address] [place] [address] www.[email or web address], Toribio Elizondo MD, Lab. Director Blood BLOOD SPECIMEN / Unknown Venipuncture / Unknown 09/09/2019 12:42 PM TOWN MANAGER 09/09/2019 12:51 PM TOWN MANAGER Lara Patrick ESTHETICIAN FACIALIST-ELECTROTYPE SERVICER LAB - SEROLOGY ORDERABLES [facility] ([facility]) [address] [place] [address], [facility] * (ABNORMAL) ISA-GILL VIRUS ANTIBODY TO VCA IGG (09/09/2019 12:42 PM TOWN MANAGER) Isa-Gill Virus Antibody IgG Viral Capsid Antigen 168.0(H) 0.0 - 21.9 U/mL 09/10/2019 4:38 PM TOWN MANAGER KEL[facility] ([facility]) Comment: INTERPRETIVE INFORMATION: Isa-Gill Virus Antibody to ?Viral Capsid Antigen, IgG ??17.9 U/mL or less.......Not Detected ??18.0-21.9 U/mL..........Indeterminate - Repeat testing in ?10-14 days may be helpful. ??22.0 U/mL or greater....Detected Performed by [email or web address], [address] [place] [address] www.[email or web address], Toribio Elizondo MD, Lab. Director Blood BLOOD SPECIMEN / Unknown Venipuncture / Unknown 09/09/2019 12:42 PM TOWN MANAGER 09/09/2019 12:51 PM TOWN MANAGER Lara Patrick [facility]ICIAN [facility] LAB - CHEMISTRY ORDERABLES [facility] ([facility]) [address] [place] [address], [facility] * (ABNORMAL) CYTOMEGALOVIRUS (CMV) QUANTITATIVE PLASMA (09/09/2019 12:42 PM TOWN MANAGER) CMV Quant By PCR, Blood 79(H) Not Detected IU/mL 09/10/2019 4:25 PM TOWN MANAGER [facility] MICROBIOLOGY CMV Quant by PCR, Interp Detected( A) Not Detected 09/10/2019 4:25 PM TOWN MANAGER [facility] MICROBIOLOGY Blood BLOOD SPECIMEN / Unknown Venipuncture / Unknown 09/09/2019 12:42 PM TOWN MANAGER 09/09/2019 12:50 PM TOWN MANAGER Narrative [facility] MICROBIOLOGY - 09/10/2019 4:25 PM TOWN MANAGER The CMV DNA analysis utilized real-time PCR, [...] test methodology (Bartholomew RealTime CMV). Tiffanie Nguyen ESTHETICIAN FACIALIST-ELECTROTYPE SERVICER LAB - CHEMISTRY ORDERABLES [facility] MICROBIOLOGY [address] [place] [address] [phone] * (ABNORMAL) CHOLESTEROL BLOOD (09/09/2019 12:42 PM TOWN MANAGER) Cholesterol Total 214(H) <200 mg/dL 09/09/2019 1:15 PM TOWN MANAGER [facility] Blood BLOOD SPECIMEN / Unknown Venipuncture / Unknown 09/09/2019 12:42 PM TOWN MANAGER 09/09/2019 12:50 PM TOWN MANAGER Lara Patrick ESTHETICIAN FACIALIST-ELECTROTYPE SERVICER LAB - CHEMISTRY ORDERABLES [address] [phone] * (ABNORMAL) DONOR PANEL 500063 (09/09/2019 12:42 PM TOWN MANAGER) Pathologist [facility] Donor Hepatitis B Surface Antigen Negative Negative 09/12/2019 11:07 AM TOWN MANAGER [facility] ([facility]) Comment:Test performed with Bartholomew Yasuu HBsAg kit. Donor Hepatitis B Core Virus Antibody Total Negative Negative 09/12/2019 11:07 AM TOWN MANAGER [facility] ([facility]) Comment:Test performed with Bartholomew Yasuu HBcore kit. Donor Hepatitis C Antibody Negative Negative 09/12/2019 11:07 AM TOWN MANAGER [facility] ([facility]) Comment:Test performed with Bartholomew Yasuu HCV kit. Donor Syphilis (T pallidum) Non Reactive Non Reactive 09/12/2019 11:07 AM TOWN MANAGER [facility] ([facility]) Comment:Test performed with Nano Think PK TP kit. Donor Cytomegalovirus Total Antibody Reactive(A) Non Reactive 09/12/2019 11:07 AM TOWN MANAGER [facility] ([facility]) Comment:Test performed with psicofxp Capture-CMV IgG and IgM kit. Donor HIV-1/O/2 Antibody Negative Negative 09/12/2019 11:07 AM TOWN MANAGER [facility] ([facility]) Comment:Test performed with Bartholomew Yasuu HIV O Plus kit. Donor HIV-1/HCV/HBV Comment Non Reactive 09/12/2019 11:07 AM TOWN MANAGER [facility] ([facility]) Comment: ?Non-Reactive for HIV-1 and HIV-2 RNA ?Non-Reactive for HCV RNA ?Non-Reactive for HBV DNA Test performed with Bernard MPX kit. Donor HTLV-I/II Antibodies Qual Negative Negative 09/12/2019 11:07 AM TOWN MANAGER [facility] ([facility]) Comment:Test performed with Bartholomew Prism HTLV-I/HTLV-II assay. Donor Zika Virus MEL Assay Non Reactive Non Reactive 09/12/2019 11:07 AM TOWN MANAGER [facility] ([facility]) Comment:Test performed with Bernard Zika kit. Donor WNV MEL Assay Non Reactive Non Reactive 09/12/2019 11:07 AM TOWN MANAGER [facility] ([facility]) Comment:Test performed with Bernard WNV kit. Donor T cruzi (Chagas) Non Reactive Non Reactive 09/12/2019 11:07 AM TOWN MANAGER [facility] ([facility]) Comment:Test performed with Bartholomew Prism Chagas assay. Blood BLOOD SPECIMEN / Unknown Venipuncture / Unknown 09/09/2019 12:42 PM TOWN MANAGER 09/09/2019 2:36 PM TOWN MANAGER Narrative [facility] ([facility]) - 09/12/2019 11:07 AM TOWN MANAGER Performed at: ??01 - [facility] [address] [place] [address] ??[id number] Cemetery Counselor: Rosalia Parra PhD, Phone: ??[phone] Lara Patrick ESTHETICIAN FACIALIST-ELECTROTYPE SERVICER LAB - CHEMISTRY ORDERABLES Performing Organization Address [facility]/State/ZIP Co de Phone Number [facility] ([facility]) [address] [place] [address], [facility] * (ABNORMAL) HSV 2 IGG CONFIRMATION RFLXED (09/09/2019 12:41 PM TOWN MANAGER) Pathologist [facility] Herpes Simplex Virus 2 Antibody IgG Confirmation Positive( A) Negative 09/11/2019 4:09 PM TOWN MANAGER [facility] ([facility]) Comment: HSV-2 IgG ?HSV-2 IgG Type Specific ?Confirmation ?Interpretation Positive/Equivocal ?? Positive ?Indicates the presence ? of detectable IgG ? antibodies to HSV-2. Positive/Equivocal ?? Negative ?Unable to confirm the ? presence of IgG ? antibodies to HSV-2. ? Recommend retesting ? in 2-4 weeks. Blood BLOOD SPECIMEN / Unknown Venipuncture / Unknown 09/09/2019 12:41 PM TOWN MANAGER 09/09/2019 12:51 PM TOWN MANAGER Narrative [facility] ([facility]) - 09/11/2019 4:09 PM TOWN MANAGER Performed at: ??01 - [facility] [address], [place], [place] ??[id number] Cemetery Counselor: Constantino Linares PhD, Phone: ??[phone] Tiffanie Nguyen ESTHETICIAN FACIALIST-ELECTROTYPE SERVICER LAB - SEROLOGY ORDERABLES [facility] ([facility]) [address] [place] [address] * VARICELLA ZOSTER ANTIBODY IGG (09/09/2019 12:41 PM TOWN MANAGER) [facility] Varicella zoster Virus Antibody IgG 999 Immune >165 index 09/10/2019 4:09 PM TOWN MANAGER [facility] ([facility]) Comment: ? Negative ?<135 ? Equivocal ?135 - 165 ? Positive ?>165 A positive result generally indicates exposure to the pathogen or administration of specific immunoglobulins, but it is not indication of active infection or stage of disease. Blood BLOOD SPECIMEN / Unknown Venipuncture / Unknown 09/09/2019 12:41 PM TOWN MANAGER 09/09/2019 12:51 PM TOWN MANAGER Narrative [facility] ([facility]) - 09/10/2019 4:09 PM TOWN MANAGER Performed at: ??01 - [facility] [address] [place], [place] ??[id number] Cemetery Counselor: Constantino Linares PhD, Phone: ??[phone] Tiffanie Nguyen ESTHETICIAN FACIALIST-ELECTROTYPE SERVICER LAB - CHEMISTRY ORDERABLES [facility] ([facility]) [address] [place] [address], [facility] * (ABNORMAL) IGM BLOOD (09/09/2019 12:41 PM TOWN MANAGER) [facility] IgM 19(L) 22 - 293 mg/dL 09/09/2019 1:46 PM TOWN MANAGER [facility] Blood BLOOD SPECIMEN / Unknown Venipuncture / Unknown 09/09/2019 12:41 PM TOWN MANAGER 09/09/2019 12:51 PM TOWN MANAGER Tiffanie Nguyen ESTHETICIAN FACIALIST-ELECTROTYPE SERVICER LAB - CHEMISTRY ORDERABLES Performing Organization Address [facility]/State/ZIP Co de Phone Number [address] [phone] * IGG BLOOD (09/09/2019 12:41 PM TOWN MANAGER) IgG 620 540-1,822 mg/dL 09/09/2019 1:46 PM TOWN MANAGER [facility] Blood BLOOD SPECIMEN / Unknown Venipuncture / Unknown 09/09/2019 12:41 PM TOWN MANAGER 09/09/2019 12:51 PM TOWN MANAGER Tiffanie Nguyen ESTHETICIAN FACIALIST-ELECTROTYPE SERVICER LAB - CHEMISTRY ORDERABLES Performing Organization Address [facility]/ZIP Co de Phone Number [address] [phone] * IGA BLOOD (09/09/2019 12:41 PM TOWN MANAGER) IgA 92 87 - 534 mg/dL 09/09/2019 1:46 PM TOWN MANAGER [facility] Blood BLOOD SPECIMEN / Unknown Venipuncture / Unknown 09/09/2019 12:41 PM TOWN MANAGER 09/09/2019 12:51 PM TOWN MANAGER Tiffanie Nguyen ESTHETICIAN FACIALIST-ELECTROTYPE SERVICER LAB - CHEMISTRY ORDERABLES Performing Organization Address [facility] Co de Phone Number [address] [phone] * (ABNORMAL) HERPES SIMPLEX 1+2 ANTIBODY IGG/IGM PANEL (09/09/2019 12:41 PM TOWN MANAGER) Herpes Simplex Virus Antibody IgM I/II Combination Ratio <0.91 0.00 - 0.90 Ratio 09/11/2019 4:09 PM TOWN MANAGER [facility] ([facility]) Comment: ? Negative ?<0.91 ? Equivocal 0.91 - 1.09 ? Positive ?>1.09 Herpes Simplex Virus I Antibody IgG Type Specific Index 9.29(H) 0.00 - 0.90 index 09/11/2019 4:09 PM [facility] ([facility]) Comment: ? Negative ?<0.91 ? Equivocal 0.91 - 1.09 ? Positive ?>1.09 Note: Negative indicates no antibodies detected to HSV-1. Equivocal may suggest early infection. ??If clinically appropriate, retest at later date. Positive indicates antibodies detected to HSV-1. Herpes Simplex Virus 2 Antibody IgG Type Specific 0.93(H) 0.00 - 0.90 index 09/11/2019 4:09 PM [facility] ([facility]) Comment: A second sample should be collected and tested no less than 2-4 weeks. ? Negative ?<0.91 ? Equivocal 0.91 - 1.09 ? Positive ?>1.09 Note: Negative indicates no antibodies detected to HSV-2. Equivocal may suggest early infection. ??If clinically appropriate, retest at later date. Positive indicates antibodies detected to HSV-2. Blood BLOOD SPECIMEN / Unknown Venipuncture / Unknown 09/09/2019 12:41 PM TOWN MANAGER 09/09/2019 12:51 PM TOWN MANAGER Narrative [facility] ([facility]) - 09/11/2019 4:09 PM TOWN MANAGER Performed at: ??01 - [facility] [address] [facility], [place], [place] ??[id number] Cemetery Counselor: Constanitno Linares PhD, Phone: ??[phone] Tiffanie Alvess ESTHETICIAN FACIALIST-ELECTROTYPE SERVICER LAB - CHEMISTRY ORDERABLES [facility] ([facility]) [address] [place] [address] * HEPATITIS B SURFACE ANTIGEN W RFLX CONFIRMATION (09/09/2019 12:41 PM TOWN MANAGER) Hepatitis B Virus Surface Antigen Non-reacti ve Non-reacti ve 09/09/2019 1:48 PM TOWN MANAGER [facility] Blood BLOOD SPECIMEN / Unknown Venipuncture / Unknown 09/09/2019 12:41 PM TOWN MANAGER 09/09/2019 12:51 PM TOWN MANAGER Tiffanie Nguyen ESTHETICIAN FACIALIST-ELECTROTYPE SERVICER LAB - CHEMISTRY ORDERABLES [address] [phone] * HEPATITIS B CORE ANTIBODY (09/09/2019 12:41 PM TOWN MANAGER) HBc Antibody Total Non-reacti ve Non-reacti ve 09/09/2019 2:21 PM TOWN MANAGER [facility] Blood BLOOD SPECIMEN / Unknown Venipuncture / Unknown 09/09/2019 12:41 PM TOWN MANAGER 09/09/2019 12:51 PM TOWN MANAGER Tiffanie Nguyen ESTHETICIAN FACIALIST-ELECTROTYPE SERVICER LAB - CHEMISTRY ORDERABLES [address] [phone] * CYTOMEGALOVIRUS ANTIBODY IGM BLOOD (09/09/2019 12:41 PM TOWN MANAGER) Cytomegalovirus Antibody IgM <30.0 0.0 - 29.9 AU/mL 09/11/2019 8:18 AM TOWN MANAGER [facility] ([facility]) Comment: ?Negative ? <30.0 ?Equivocal ??30.0 - 34.9 ?Positive ? >34.9 A positive result is generally indicative of acute infection, reactivation or persistent IgM production. Blood BLOOD SPECIMEN / Unknown Venipuncture / Unknown 09/09/2019 12:41 PM TOWN MANAGER 09/09/2019 12:51 PM TOWN MANAGER Narrative [facility] ([facility]) - 09/11/2019 8:18 AM TOWN MANAGER Performed at: ??01 - [facility] [address] [place], [place] ??[id number] Cemetery Counselor: Constantino Linares PhD, Phone: ??[phone] Tiffanie Nguyen ESTHETICIAN FACIALIST-ELECTROTYPE SERVICER LAB - CHEMISTRY ORDERABLES Performing Organization Address City/State/[facility] Co de Phone Number [facility] ([facility]) [address] [place] [address] * (ABNORMAL) CYTOMEGALOVIRUS ANTIBODY IGG BLOOD (09/09/2019 12:41 PM TOWN MANAGER) Pathologist [facility] Cytomegalovirus Antibody IgG 2.00(H) 0.00 - 0.59 U/mL 09/11/2019 8:18 AM TOWN MANAGER [facility] ([facility]) Comment: ? Negative ?<0.60 ? Equivocal ?? 0.60 - 0.69 ? Positive ?>0.69 Blood BLOOD SPECIMEN / Unknown Venipuncture / Unknown 09/09/2019 12:41 PM TOWN MANAGER 09/09/2019 12:51 PM TOWN MANAGER Narrative [facility] ([facility]) - 09/11/2019 8:18 AM TOWN MANAGER Performed at: ??01 - [facility] [address] [place], [place] ??[id number] Cemetery Counselor: Constantino Linares PhD, Phone: ??[phone] Tiffanie Nguyen ESTHETICIAN FACIALIST-ELECTROTYPE SERVICER LAB - CHEMISTRY ORDERABLES Performing Organization Address City/State/[facility] Co de Phone Number [facility] ([facility]) [address] [place] [address] * FISH LYMPHOMA (AGGRESSIVE) PANEL (09/09/2019 12:30 PM TOWN MANAGER) FISH Lymphoma (Aggressive) Panel See Note Normal 09/17/2019 1:20 PM TOWN MANAGER [facility] ([facility]) Comment: Specimen Received Specimen Type: ?Bone Marrow Reason for Referral: ??Unspecified B-Cell Lymphoma Test Performed: ? FISH ALYMP NORMAL FISH RESULTS 3q27 (BCL6): rearrangement not detected 8q24 (MYC): rearrangement not detected t(14;18)(q32;q21) (IGH;BCL2): rearrangement not detected DIAGNOSTIC IMPRESSION: Fluorescence in situ hybridization (FISH) analysis was performed with the BCL6, MYC, IGH, and BCL2 probes ([employer]). 200 interphase cells were scored for each probe combination. This analysis showed normal results with no evidence of t(14;18)(q32;q21) (IGH/BCL2 translocation) or other rearrangements involving BCL6 or MYC. ISCN: nuc sergei(BCL6,MYC,IGH,BCL2)x2[200] This result has been reviewed and approved by Aundrea Grover, Ph.D., [facility] A portion of this analysis was performed at the following location(s): [place] [id number] INTERPRETIVE INFORMATION: Lymphoma (Aggressive) Panel by FISH This panel is for the identification of double hit lymphoma and triple hit lymphoma, both of which show morphologic features intermediate between diffuse large B-Cell lymphoma and Burkitt Lymphoma. Both are agressive lymphomas and ??are characterized by a poor survival rate. Test developed and characteristics determined by [email or web address]. See Compliance Statement A: [employer]/ EER Lymphoma (Aggressive) Pnl FISH See Note 09/17/2019 1:20 PM TOWN MANAGER [facility] ([facility]) Comment: Access [facility] Report using either link below: -Direct access: [email or web address] -Enter Username, Password: [email or web address] Username: [email or web address] Password: [email or web address] Performed by [email or web address], [address] [place] [address] www.[email or web address], Toribio Elizondo MD, Lab. Director Other BONE MARROW SPECIMEN / Unknown Collection / Unknown 09/09/2019 12:30 PM TOWN MANAGER 09/09/2019 12:49 PM TOWN MANAGER Tiffanie Nguyen ESTHETICIAN FACIALIST-ELECTROTYPE SERVICER LAB - PATHOLOGY /CYTOLOGY ORDERABLES [facility]) [address] * CHROMOSOME ANALYSIS BONE MARROW PANEL (09/09/2019 12:30 PM TOWN MANAGER) Chromosome Analysis Bone Marrow See Note Normal 09/17/2019 6:48 AM TOWN MANAGER [facility] ([facility]) Comment: Specimen received ??Specimen type: ? Bone Marrow ??Reason for referral: Unspecified, B-cell Lymphoma ??Test performed: ?Chromosome Analysis Laboratory analysis ??Number of cells counted: ?20 ??Number of cells analyzed: ?? 20 ??Number of cells karyotyped: 17 ??ISCN Band level: ?400 ??Banding Method: ? G-Banding Chromosome results: 46,XY[20] Diagnostic Impression: Evaluation of metaphase cells from this patient revealed a normal male chromosome complement. There were no abnormal clones detected within the limits of the technology utilized in this study. NOTE: FISH ALYMP is pending on this sample and will be reported under [employer] accession #([id number]). This result has been reviewed and approved by Jin Meza, PhD, [facility] A portion of this analysis was performed at the following location(s): [facility], [address] [place] [address] INTERPRETIVE INFORMATION: Chromosome Analysis, Bone Marrow Test developed and characteristics determined by [email or web address]. See Compliance Statement B: [employer]/ EER Chromosome Analysis Bone Marrow See Note 09/17/2019 6:48 AM TOWN MANAGER [facility] ([facility]) Comment: Access [facility] Enhanced Report using either link below: -Direct access: [email or web address] -Enter Username, Password: [email or web address] Username: [email or web address] Password: [email or web address] Performed by [email or web address], [address] [place] [address] www.[email or web address], Toribio Elizondo MD, Lab. Director Bone marrow BONE MARROW SPECIMEN / Unknown 09/09/2019 12:30 PM TOWN MANAGER 09/09/2019 12:49 PM TOWN MANAGER Tiffanie Seymour Patrick [facility] LAB - PATHOLOGY /CYTOLOGY ORDERABLES Performing Organization Address City/[facility]/ZIP Co de Phone Number [employer] ([facility]) [address] [place] [phone] [place] [address] * HOLD SPECIMEN DNA TISSUE (09/09/2019 12:30 PM TOWN MANAGER) Pathologist [facility] HOLD SPECIMEN DNA RESULT 31 ng/uL 09/17/2019 3:07 PM TOWN MANAGER [facility] BONE MARROW SPECIMEN / Unknown 09/09/2019 12:30 PM TOWN MANAGER 09/09/2019 12:49 PM TOWN MANAGER Narrative [facility] - 09/17/2019 3:07 PM TOWN MANAGER No specific testing was performed at this time. The DNA will be stored for future testing. This test was developed and its performance characteristics determined by the [facility] at [facility]. ??It has not been cleared or [...] to preform high complexity clinical laboratory testing. Tiffanie Nguyen [facility] LAB - PATHOLOGY /CYTOLOGY ORDERABLES [facility] [address] [phone] * FLOW CYTOMETRY BONE MARROW (09/09/2019 12:30 PM TOWN MANAGER) Case Report Flow Cytometry ?Case: [id number] ? Authorizing Provider: ??Tiffanie Nguyen APRN-CNP Collected: ? 09/09/2019 12:30 PM ? Ordering Location: ? [facility] ? Received: ?09/09/2019 12:49 PM ? Pathologist: ? Alecia Neri MD ? Specimen: ?Bone Marrow ? 09/10/2019 3:24 PM [facility] Final Diagnosis Bone marrow, flow cytometric immunophenotypic analysis: - No evidence of non-Hodgkin lymphoma or high-grade myeloid neoplasm. - See interpretation. 09/10/2019 3:24 PM [facility] Flow Cytometry Interpretation The bone marrow specimen has a viability of 93%. The lymphocyte, dim CD45, monocyte, and granulocyte egan are normal in relative proportion. Within the lymphocyte gate, there is no significant B-cell population identified. There is no expanded T-cell population seen. By CD34, 1.4% of all events analyzed are blasts. A bone marrow aspirate smear prepared from the flow cytometry specimen is reviewed for fiberglass quality technician purposes. The bone marrow aspirate specimen shows no evidence of involvement by non-Hodgkin lymphoma or a high-grade myeloid neoplasm. Correlation with clinical findings, the concurrent bone marrow core biopsy ([id number]), and relevant cytogenetic/molecu lar studies is required. KR/MM 09/10/2019 3:24 PM [facility] Flow Cytometry Results Differential Result Comment Flow Cell Count /uL 29,100 Total Viability % 93.0 Lymphocytes % 26 Dim CD45 Region % 3 Monocytes % 18 Granulocytes % 52 09/10/2019 3:24 PM [facility] Reason for test B-cell lymphoma, unspecified B-cell lymphoma type, unspecified body region 09/10/2019 3:24 PM [facility] Client Specimen ID # [id number] 09/10/2019 3:24 PM [facility] Number of markers 10 were performed. A-1 Flow CD3 A-3 Flow CD10 A-5 Flow CD20 A-6 Flow CD23 A-2 Flow CD5 A-4 Flow CD19 A-7 Flow CD34 A-8 Flow CD45 A-9 [place]+CD19+ A-10 Lambda+CD19+ 09/10/2019 3:24 PM [facility] Disclaimer Test performed at [facility], [address] [place] [address], [id number]. *The established laboratory minimum viability is 70%. [...] qualified to perform high complexity clinical testing. 09/10/2019 3:24 PM [facility] [facility] Embedded Images 0 3:24 PM [facility] Pathology/Cytolo gy BONE MARROW SPECIMEN / Unknown Collection / Unknown 09/09/2019 12:30 PM TOWN MANAGER 09/09/2019 12:49 PM TOWN MANAGER Tiffanie [facility] LAB - PATHOLOGY /CYTOLOGY ORDERABLES [facility] [address] [facility] [place] [address], [facility] [phone] * BONE MARROW BIOPSY (STL) (09/09/2019 12:30 PM TOWN MANAGER) Case Report Bone Marrow Patholog y Report ?Case: [id number] ? Authorizing Provider: ??Tiffanie Nguyen APRN-CNP Collected: ? 09/09/2019 12:30 PM ? Ordering Location: ? [facility] ? Received: ?09/09/2019 12:49 PM ? Pathologist: ? Alecia Neri MD ? Specimens: ?? A) - Bone Marrow Clot ? B) - Bone Marrow Core ? C) - Bone Marrow Aspirate ? D) - Blood Peripheral ? 09/10/2019 5:26 PM [facility] Final Diagnosis Bone marrow, aspirate, clot section, and core biopsy: - Normocellular marrow with maturing trilineage hematopoiesis and non-necrotizing granulomas. - AFB and GMS stains negative for acid fast bacilli and fungal organisms. - No evidence of lymphoma or high-grade myeloid neoplasm. - See description. Peripheral blood smear: - Normochromic, normocytic anemia. - Thrombocytosis. - See description. 09/10/2019 5:26 PM [facility] Comment Overall, the bone marrow specimen is normocellular for age with maturing trilineage hematopoiesis, non-necotizing granulomas, and no evidence of lymphoma, a high-grade myeloid neoplasm, or significant dyspoiesis. Correlation with clinical findings and relevant cytogenetic/molecular testing is required. KR/MM 09/10/2019 5:26 PM [facility] Peripheral Smear Description Manual Differential Count (100 cells): 47% neutrophils, 24% lymphocytes, 20% monocytes, and 9% eosinophils. Leukocyte number: normal. Granulocyte morphology: normal. Lymphocyte morphology: normal. Erythrocyte number: decreased. Erythrocyte morphology: normocytic/normochrom ic. Anisopoikilocytosis: mild. Polychromasia: not significant. Platelet number: increased. Platelet morphology: normal. 09/10/2019 5:26 PM [facility] Bone Marrow Aspirate Differential count (200 cells): 1% blasts, 57% maturing myeloid precursors, 30% erythroid progenitors, 2% monocytes, 6% eosinophils, and 4% lymphocytes. Specimen quality: adequate. Spicules: present. Trilineage Hematopoiesis: present. Myeloid:Erythroid ratio: 2:1. Myeloid Maturation: normal. Erythroid Maturation: Occasional forms with irregular nuclear contours present. Megakaryocyte morphology: normal sized. Lymphocytes: small and mature. Storage iron (by special stain): decreased. Sideroblastic iron (by special stain): Decreased; no ring sideroblasts. Control is appropriately reactive. 09/10/2019 5:26 PM [facility] Bone Marrow Core Biopsy and Clot Section Description Specimen quality: adequate. Cellularity: Normocellular, 50%. Trilineage Hematopoiesis: present. Myeloid to Erythroid ratio: normal. Myeloid maturation and localization: normal. Erythroid maturation and localization: normal. Megakaryocyte number: normal. Megakaryocyte distribution: small, loose clusters. Lymphoid aggregates: Absent. Bone trabeculae: normal. Blood vessels: normal. Other: Clusters of coalescing non-necrotizing granulomas are seen in initial sections and on subsequent immunostained slides. Clot section marrow particles: absent. Clot section morphology: clotted blood and some marrow elements. Special stains and immunohistochemical stains are performed on the core biopsy in the [facility] Department of Pathology, with appropriately reactive controls, to assess the granulomas and evaluate for an atypical lymphoid infiltrate and demonstrate the following: AFB: negative for acid fast bacilli. GMS: negative for fungal organisms. CD3: highlights T-cells singly and in association with the granulomas (lymphohistiocytic aggregates). PAX5: highlights scattered small B-cells. CD117: highlights scattered mast cells primarily in association with the granulomas. A normal number and distribution of myeloid and erythroid precursors are also positive. Tryptase: highlights scattered mast cells primarily in association with the granulomas. CD25: primarily highlights monocytes in the granulomas. 09/10/2019 5:26 PM [facility] Flow Cytometry Summary Concurrent flow cytometry ([id number]) shows no evidence of non-Hodgkin lymphoma or high-grade myeloid neoplasm. 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 09/10/2019 5:26 PM [facility] Gross Description The requisition and specimens are labeled with the patient's name, Marcello Guillen. Received fresh, specimen A, ASP , is a scant amount of fluid-like blood. Specimen is wrapped in tissue paper and entirely submitted in cassette A1. Specimen B, Core , is a brown-guerra bony tissue core measuring 1.5 x 0.1 x 0.1 cm. Specimen is submitted entirely in cassette B1 following decalcification in 1 hour of rapidcal immuno. KK 09/10/2019 5:26 PM [facility] Disclaimer The performance characteristics of all immunohistochemical and indirect immunofluorescence stains (if any) cited in this report were determined by the Histopathology Laboratory of [facility]. Some of these tests were developed [...] and interpreted by the attending (teaching) pathologist. 09/10/2019 5:26 PM [facility] Embedded Images 09/10/2019 5:26 PM [facility] Pathology/Cytology PERIPHERAL BLOOD / Unknown Collection / Unknown 09/09/2019 12:30 PM TOWN MANAGER 09/09/2019 12:49 PM TOWN MANAGER Miscellaneous samples (specimen) BONE MARROW SPECIMEN / Unknown 09/09/2019 12:30 PM TOWN MANAGER 09/09/2019 2:35 PM TOWN MANAGER Miscellaneous samples (specimen) SPECIMEN FROM BONE MARROW OBTAINED BY ASPIRATION / Unknown 09/09/2019 12:30 PM TOWN MANAGER 09/09/2019 2:35 PM TOWN MANAGER Miscellaneous samples (specimen) PERIPHERAL BLOOD / Unknown 09/09/2019 12:30 PM TOWN MANAGER 09/09/2019 2:35 PM TOWN MANAGER Tiffanie Nguyen ESTHETICIAN FACIALIST-ELECTROTYPE SERVICER LAB - PATHOLOGY /CYTOLOGY ORDERABLES [facility] [address] [phone] documented in this encounter Visit Diagnoses Diagnosis Pre-transplant evaluation for stem cell transplant B-cell lymphoma, unspecified B-cell lymphoma type, unspecified body region (HCC) S/P splenectomy Other acquired absence of organ Anxiety Anxiety state, unspecified documented in this encounter Administered Medications Inactive Administered Medications - up to 3 most recent administrations Medication Order MAR Action Action Date Dose Rate Site fentaNYL (PF) (SUBLIMAZE) injection 100 mcg 100 mcg, Intravenous, ONCE, 1 dose, On Ofelia 09/09/19 at 1045 $ Given 09/09/2019 12:22 PM TOWN MANAGER 100 mcg LORazepam (ATIVAN) injection 1 mg 1 mg, Intravenous, ONCE, 1 dose, On Ofelia 09/09/19 at 1045 $ Given 09/09/2019 12:13 PM TOWN MANAGER 0.5 mg documented in this encounter Care Teams Barometers Calibrator Relationship Specialty Start Date End Date Ran Nuñez [place] [phone] PCP - General Family Medicine 03/22/19 12/22/20 Hillary Apple MD [address] [place] [id number] Hematology and Oncology 03/17/19 Bill Ferrera MD [address] [place] [id number] Hematology and Oncology 03/17/19 08/27/21 Tony Dumont MD [address] [place] [address] Hematology and Oncology 03/17/19 Shalini Segal MD [address] [place] [address] Hematology and Oncology 03/17/19 09/29/19 Karie Jones, ROSEMARY Registered Nurse 03/17/19 09/21/19 Maryjo Reinoso, SUPPORT SERVICES MANAGER Tariff Supervisor 03/17/19 Madyson Clay, PharmD 03/17/19 Dana Lala, ESTHETICIAN FACIALIST-BOX CAR BRACER [address] [place] [address] [address] [place] [address] Oncology 03/17/19 Tiffanie Nguyen, ESTHETICIAN FACIALIST-ELECTROTYPE SERVICER [address] [place] [address] Family Medicine 03/17/19 Stephanie Mahoney, RN Registered Nurse 03/17/19 10/29/21 Alycia Galvan, ROSMEARY 03/17/19 10/29/21 Cesar Tavares MD [address] [facility] [place] [address] Referring Physician Medical Oncology 03/23/19 Karie Jones, RN Registered Nurse 06/08/19 10/29/21 documented as of this encounter
--- OUTSIDE RECORDS SUMMARY | 2024-08-18 00:33 | XMS_ITS | Encounter Summary ---
Author Organization [facility] Address [address] [place] [address] Care Team Providers Care Biomedical Equipment Tech Name Role Phone Hillary Apple MD Unavailable [phone] Bill Ferrera MD Unavailable [phone] Tony Dumont MD Unavailable [phone] Shalini Segal MD Unavailable [phone] Karie Jones RN Unavailable Unavailable Maryjo Reinoso LCSW Unavailable Unavailable Madyson Clay PharmD Unavailable Unavaila Dana Galicia TEMPLATE FITTER-SUPERVISOR/PORT DIRECTOR Unavailable [phone] Mckinley Silver-C Unavailable Unavail able PatrickTiffanie TEMPLATE FITTER-REGASIFICATION PLANT OPERATOR Unavailable [phone] Stephanie Mahoney RN Unavailable Unavailable Alycia Galvan [...] Expiration Date Visits Re quested Visits Authorized [id number] 1 1 Encounter Details Date Type Department Care Team (Late st Contact Info) Description 08/17/2019 7:32 AM DINKEY OPERATOR SLAG Anesthesia Event [facility] [address] [place] [address] Rodney Light MD [address] [place] [address] Elkin Shahid MD [address] [place] [address] Anesthesia Record Procedure Summary Procedure Name Responsible Anesthesiologist Anesthesia Start Time Anesthesia Stop Time LAPAROSCOPIC SPLENECTOMY POSS OPEN (Abdomen) Rodney Light MD 08/17/19 0732 08/17/19 1108 Events Date Time Event Comment 08/17/2019 0657 0732 Pt In Room 0732 An Start 0732 An Start Data 0736 Anes Timeout 0738 PT Reassessment 0738 Induction 0741 An Intubation 0750 Insert Art Line 0751 Anes Ready 0830 Time Out Anesthesia part icipated in timeout at the time documented in the record by nursing 0831 Proc Start 1056 Proc Stop 1056 An Emergence 1104 Extubation 1106 an stop data 1106 Pt out of Room 1106 ANPTO2 1108 An Stop Meds Name Total midazolam 2 mg/2mL injection 2 mg fentaNYL 100 mcg/2ml injection 200 mcg lidocaine PF 2% 100 mg propofol 200mg/20mL injection 200 mg rocuronium 50 mg/5 mL injection 150 mg ondansetron 4mg/2mL injection 4 mg dexamethasone 10 mg/ml PF injection 4 mg hydromorphone 2 mg/10mL prefilled syring e 2 mg sugammadex 200 mg/2mL injection 300 mg cefOXitin 2,000 mg vial 4 g Isolyte-S infusion 500 mL LR (Lactated ringers) 1,000 mL * Agents Name Exp. Sevoflurane Insp. Sevoflurane * Blood No blood administrations on file. Lines, Drains, and Airways Type Details Placement Removal Implanted Port Right; Chest; ; 1037 06/09/19 1355 by 09/17/19 1037 by Anabel Remy, ROSEMARY Peripheral IV Orientation: Left; Placed By: maría 08/17/19 0832 by 08/18/19 0008 by Vane Ferrera RN Peripheral IV Date: 08/17/19; Time : 0701; Orientation: Right; Placed By: M Geri RN; Tolerance: Moderate 08/17/19 0701 by Renita Nevarez RN 08/18/19 0008 by Vane Ferrera RN ETT Date: 08/17/19; Time : 0741; Placed By: Fidel Mistry DO; Vent: 2-person mask; Induction: Standard IV; Blade Type: Ramiro; Blade Size: 4; Laryngoscopy View: Grade 1 (full cords); Intubation Adjuncts: Stylet; Tube: Endotracheal Tube; Placement: Oral; Tube Type: Cuffed-inflated; Tube Size(mm): 8 MM; Measured From: lips; Attempts: 1; Cuff Infated: Air; Verified By: Direct visualization, Bilateral breath sounds, Chest Auscultation, CO2 Monitor 08/17/19 0741 by Fidel Mistry DO 08/17/19 1104 by Fidel Mistry DO Urethral Catheter 08/17/19; 0750; erin ferreira rn; Coude, Latex, Other (Comments) (met resistance when attempting to insert 16 fr temp probe rees, 14 fr went in with minimal resistance, clear jennifer urine returned); No; 14; 10 mL; Coude; General Anesthesia; 08/17/19; 1047; Per order 08/17/19 0750 by Ivy Ferreira RN 08/17/19 1047 by Ivy Ferreira RN Arterial Line Date: 08/17/19; Time : 0832; Placed By: Fidel Mistry DO; Gauge: 20; Tolerance: General Anesthesia 08/17/19 0832 by Fidel Mistry DO 08/17/19 1131 by Maria Del Carmen Puri RN Procedural Site (Incision) 08/17/19; 0906; Abdomen; exofin to trocar sites, and left abd incision site; 08/19/19; 2147 08/17/19 0906 by Ivy Ferreira RN 08/19/19 2147 by Tarun, Auto Release documented in this encounter Social History Tobacco [...] AM CDT documented as of this encounter Progress Notes * Rodney Light MD - 08/17/2019 12:17 PM CST ANESTHESIA POSTOP EVALUATION NOTE Procedure: LAPAROSCOPIC SPLENECTOMY POSS OPEN (N/A Abdomen) Marcello Guillen is a 49 year old male Patient Vitals for the past 6 hrs: BP Temp Pulse Resp SpO2 Pain Rating Score #1 Pain Scale/Observation 08/17/19 1106 151/88 -- -- -- -- -- -- 08/17/19 1110 151/89 98.5 ??F (36.9 ??C) 81 11 100 % -- Resting with eyes closed 08/17/19 1115 152/83 -- 81 11 100 % -- -- 08/17/19 1120 157/81 -- 80 12 100 % -- -- 08/17/19 1125 156/92 -- 81 11 100 % -- -- 08/17/19 1130 146/91 -- 82 9 100 % -- -- 08/17/19 1135 152/91 -- 79 12 100 % -- -- 08/17/19 1140 (!) 148/102 -- 78 14 100 % -- -- 08/17/19 1144 -- -- -- -- -- -- N;F;B 08/17/19 1145 148/95 -- 89 11 (!) 86 % -- -- 08/17/19 1150 148/81 -- 87 (!) 7 94 % -- Resting with eyes closed 08/17/19 1155 141/85 -- 78 (!) 5 97 % -- -- 08/17/19 1200 150/82 -- 77 10 96 % -- -- 08/17/19 1215 137/81 -- 94 -- 95 % 10 N;F;B 08/17/19 1245 -- -- 77 12 97 % -- -- 08/17/19 1314 -- -- -- -- -- 10 -- Anesthesia Type: general Pre-op Diagnosis Codes: * Non-Hodgkin's lymphoma of spleen, unspecified non-Hodgkin lymphoma type [C85.97] Mental Status: oriented, arousable and sufficiently recovered from acute administration of anesthesia to participate in the evaluation Neuro Status: No numbness, tingling or visual disturbances Respiratory Function: natural Cardiac Function: stable Postop Pain: adequate Postop Hydration: adequate Postop Nausea: none Assessment: no apparent anesthetic complications, patient tolerated procedure well and no evidence of recall Patient Disposition: Release from Anesthesia Care Non Reportable Improvement Section (otherwise blank): EY OPERATOR SLAG * Rodney Light MD - 08/12/2019 2:49 PM CST ANESTHESIA PREOPERATIVE EVALUATION NOTE Procedure: LAPAROSCOPIC SPLENECTOMY POSS OPEN (N/A Abdomen) Vitals: Patient Vitals for the past 6 hrs: BP Temp Pulse Resp SpO2 08/12/19 1447 138/86 98.8 ??F (37.1 ??C) 73 16 96 % ANESTHESIA PRE-EVALUATION NOTE History of Present Illness: This is a 49 year old male with a history of lymphoma, LISSA (w/o CPAP), GERD. He reports a history of intraoperative awareness and some delayed emergence. He is an active user of cannabis (vape/blunts) and chew, former smoker with 9 py smoking history. He presents to PAT clinic for evaluation prior to undergoing a splenectomy with Dr. Kent. At the time of interview the patient denies: headache, dysphagia/odynophagia, chest pain, shortnessof breath, cough, pleuritic pain, abdominal pain, nausea/vomiting, reflux/GERD symptoms, fevers/chills, new onset pain or weakness. DOS update: NPO>8 hours, no GERD/heartburn/reflux symptoms, no SOB, CP, headaches, he endorses easy bruising, but no continued bleeding from when his teeth were exctracted recently. Previous Airway Management: No Hx Available Physical Exam: Orientation X3 Airway/Mallampati Score: III Mouth Opening Distance: 3 fingerwidths Neck ROM: full TM Distance: > 3 FB Teeth: edentulous Heart: regular rate rhythm Lungs: normal Abdomen Exam: soft and obese (non-tender, non-distended) Physical Exam Additional Comments: Multiple facial piercings, discussed need to remove for OR Port right chest Review of Systems: History of anesthetic complications: Yes Delayed Emergence: Yes GERD: Yes, well controlled Poor Exercise Tolerance: No Recent Chest Pain: No Shortness of Breath: No AICD/Pacemaker: No Renal Disease: No Diagnostic Tests: Echo(s) reviewed: Yes (08/11/2019, indicated pre-transplant). Lab(s) reviewed: Yes (leukopenia, thrombocytopenia, K+ 4.3, Hgb 11.6). Other Findings: Thbromboscytopenia, with plt count up to 60 most recently ECHO 08/11/2019 - SUMMARY Left ventricular systolic function is mildly decreased [...] does not show any significant valvular abnormalities. ANESTHESIA PLAN ASA Score: 3 NPO Status: Patient instructed to be NPO after midnight Anesthesia Plan: general ETT Planned Induction: intravenous Anesthetic plan was discussed with: patient Anesthetic Plan discussion was: Consented Use of blood products were discussed with: patient Use of blood product discussion was: Consented The patient's procedural Anesthetic Plan was discussed with the blood and plasma laboratory assistant, MODEL BUILDER DISPLAY and resident. No current facility-administered medications for this encounter. Current Outpatient Medications: ??? acyclovir (ZOVIRAX) 400 MG tablet ??? allopurinol (ZYLOPRIM) 300 MG tablet ??? BABY ASPIRIN PO ??? diclofenac sodium EC (VOLTAREN) 75 MG tablet ??? escitalopram (LEXAPRO) 10 MG tablet ??? HYDROcodone-acetaminophen (NORCO) 5-325 MG tablet ??? Lansoprazole (PREVACID PO) ??? lidocaine-prilocaine (EMLA) 2.5-2.5 % cream ??? ondansetron, disintegrating, (ZOFRAN ODT) 8 MG tablet ??? penicillin v potassium (VEETIDS) 250 MG tablet ??? polyethylene glycol 3350 (MIRALAX) packet ??? prochlorperazine (COMPAZINE) 10 MG tablet BMI, Height, Weight Tobacco History Estimated body mass index is 43.21 kg/m?? as calculated from the following: Height as of this encounter: 1.715 m (5' 7.5 ). Weight as of this encounter: 127 kg (280 lb). Social History Tobacco Use Smoking Status Former Smoker Smokeless Tobacco Never Used Alcohol History Drug History Social History Substance and Sexual Activity Alcohol Use Not Currently Social History Substance and Sexual Activity Drug Use Yes ??? Types: Marijuana Outpatient Medications: Inpatient Medications: No outpatient medications have been marked as taking for the 08/12/19 encounter (Hospital Encounter) with [facility]. No current facility-administered medications for this encounter. Allergies: No Known Allergies Relevant Problems No relevant active problems Problem List: Patient Active Problem List Diagnosis Date Noted ??? History of marijuana use 06/28/2019 Priority: Not Prioritized ??? DLBCL (diffuse large B cell lymphoma) 05/24/2019 Priority: Not Prioritized ??? B-cell lymphoma 04/18/2017 Priority: Not Prioritized ??? Lymphadenopathy 04/11/2017 Priority: Not Prioritized Medical History: Past Medical History: Diagnosis Date ??? Lymphoma of lymph nodes Surgical History: Past Surgical History: Procedure Laterality Date ??? ACL RECONSTRUCTION ??? VENOUS ACCESS DEVICE (PORT OR CATHETER) Lab Results: Recent Labs Component Name 08/11/19 1116 WBC 2.3* HGB 11.6* HCT 33.6* PLTCOUNT 60* Recent Labs Component Name 07/26/19 1248 NA 140 POTASSIUM 4.3 CO2 23 BUN 12 CREATININE 1.0 Recent Labs Component Name 07/26/19 1248 GLU 97 CALCIUM 9.1 MAGNESIUM 1.8 ALT 68* AST 31 PAT Evaluation summary: Perioperative Cardiac Risk Stratification based on 2014 ACC/AHA Guidelines Perioperative risk of a Major Adverse Cardiac Event (MACE). Add one point for each positive RCRI (Revised Cardiac Risk Index) Is the surgery high-risk? Yes history of ischemic heart disease? no History of congestive heart failure? no History of cerebrovascular disease? no Insulin-dependent Diabetes? no Preoperative creatinine > 2 mg/dl? no RCRI correlation with MACE (www.[email or web address].com/vvbwueu-pwqcwgl-yzqp-otwcz-zbp-rckibkkgc-risk, originally validated by Fany Grossman. Circulation. 1999;100:3167-8654) 0 Points - 0.4% risk 1 Point - 0.9% risk 2 Points - 6.6% risk 3 or more Points - 11% risk This patient has 1 RCRI and the risk of MACE= 0.9 % Consults: Cardiology / medicine risk stratification requested: no Other consults pending: no CIEDs Patient does not have any CIEDs (cardiovascular implantable electronic device) Anticoagulants Patient taking ASA and naproxe; instructed to hold both. Special Medication Instructions: Patient counseled by PAT RN & Provider regarding perioperative medications. Instructions provided in writing, a copy of which will appear on the physical chart DOS. Blood products Procedure represents increased risk of bleeding; will T&X DOS. Patient has no history of prior transfusion. I discussed risks and benefits of potential transfusion with Mr. Guillen and he is agreeable should the need arise. Additional laboratory testing needed within 1 month prior to DOS as below: Labs ordered prior to DOS? None indicated Labs ordered for DOS? T&X Summary: Marcello Guillen is a 49 year old male presenting for LAPAROSCOPIC SPLENECTOMY POSS OPEN (N/A Abdomen). This patient has an ASA score of ASA 3 and 1 RCRI, which correlates with a MACE score of 0.9%. The patient is medically optimized for this procedure. According to the 2014 ACC/ AHA guidelines, patient does not need further workup. Final clearance pending evaluation by the attending Anesthesiologist on the day of surgery. Elkin Shahid MD 08/12/2019 3:51 PM EY OPERATOR SLAG documented in this encounter Procedure Notes * Fidel Mistry DO - 08/17/2019 8:32 AM CSTAssociated Order(s): Arterial Line Placement Arterial Line Placement Procedure Note Patient Location: OR. Procedure: Arterial Line ([id number]). Procedure Section Indications: hypotension, continuous blood pressure monitoring and blood sampling needed. Consent: informed consent was obtained for the procedure, including sedation. Skin Prep: Chloraprep. Location: right radial. Site Identification: palpation and ultrasound guided with sterile sleeve and gel. Sterile Technique: cap and mask. Gauge: 20. Catheter Type: Arrow. Seldinger Technique Used? Yes Number of Attempts: 2. Line Secured with: Tegaderm. Procedure Tolerance: performed while patient under general anesthesia. Events: none. Staff Section Anesthesia Provider: Fidel Mistry DO, Performed the procedure Provider #1: Rodney Light MD. EY OPERATOR SLAG * Fidel Mistry DO - 08/17/2019 8:31 AM CSTAssociated Order(s): ETT Placement Endotracheal Tube Placement: Patient Location: OR. Intubation Event Date/Time: 08/17/2019 7:41 AM Procedure: intubation ([id number]). Procedure Section: Sedation: under general anesthesia. Indications for Airway Management: anesthesia Induction: standard IV Patient Position: sniffing and supine Mask Ventilation: difficult and required [...] auscultation and CO2 monitor Tube secured with: adhesive tape. Difficult Airway? No. Procedure Start Time: 08/17/2019 7:41 AM. Staff Section Anesthesia Provider: Fidel Mistry DO Performed the procedure Provider #1: Rodney Light MD. EY OPERATOR SLAG documented in this encounter Miscellaneous Notes * Anesthesia Transfer of Care - Milana Espinal DO - 08/17/2019 11:11 AM DINKEY OPERATOR SLAG ANESTHESIA TRANSFER OF CARE NOTE Today's Date: 08/17/2019 Date of : 1970 Patient: Marcello Guillen Procedure(s): LAPAROSCOPIC SPLENECTOMY POSS OPEN Surgeon(s): Primary: Chloe Kent MD Resident - Assisting: Christina Patel MD Preop Diagnosis: Pre-op Diagnois: * Non-Hodgkin's lymphoma of spleen, unspecified non-Hodgkin lymphoma type [C85.97] Pre-op Meds (From admission, onward) Start Stop Status Route Frequency Ordered 08/17/19 0600 ceFAZolin (ANCEF) syringe 2,000 mg 08/17 175 Verified IV ONCE 08/17/19 0542 08/17/19 0615 lactated ringers infusion -- Dispensed IV PRE-OP CONTINUOUS 08/17/19 0609 Post-op Diagnosis: * Non-Hodgkin's lymphoma of spleen, unspecified non-Hodgkin lymphoma type [C85.97] . Allergies Allergen Reactions ??? Adhesive Sensitivity Urticaria and Other Electrodes -- welps where stickers are Also, use paper tape Vitals: No data found. Lines, Drains, and Airways Type Details Placement Removal Peripheral IV Date: 08/17/19; Time: 700; Orientation: Right; Location: Wrist; Placed By: Joseph Nevarez RN; Gauge: 18 Gauge; Locals: None; Tolerance: Moderate 08/17/19 0701 by Renita Neavrez RN ETT Date: 08/17/19; Time: 740; Placed By: Fidel Mistry DO; Vent: 2- person mask; Induction: Standard IV; Blade Type: Ramiro; Blade Size: 4; Laryngoscopy View: Grade 1 (full cords); Intubation Adjuncts: Stylet; Tube: Endotracheal Tube; Placement: Oral; Tube Type: Cuffed-inflated; Tube Size(mm): 8 MM; Measured From: lips; Attempts: 1; Cuff Infated: Air; Verified By: Direct visualization, Bilateral breath sounds, Chest Auscultation, CO2 Monitor 08/17/19 0741 by Fidel Mistry DO 08/17/19 1104 by Fidel Mistry DO Arterial Line Date: 08/17/19; Time: 831; Placed By: Fidel Mistry DO; Gauge: 20; Tolerance: General Anesthesia 08/17/19 0832 by Fidel Mistry DO Peripheral IV Orientation: Left; Location: Wrist; Placed By: tb; Gauge: 18 Gauge 08/17/19 0832 Intraprocedure I/O Totals Urine Output Urine 150 mL Anesthesia Other Output Estimated Blood Loss 200 mL Isolyte-S infusion Volume infused 500 ml LR (Lactated ringers) Volume infused 1000 ml Patient Transfer Location: PACU Transport Airway: spontaneous respirations and supplemental O2 Transport Monitoring: heart rate and continuous pulse oximetry Complications: None Handoff Given? Yes Checklist or [...] understanding of report from the receiving PACUteam. Milana Espinal DO EY OPERATOR SLAG documented in this encounter Plan of Treatment Upcoming Encounters Date Type Department Care Team (Late st Contact Info) Description 08/26/2024 11:00 AM DINKEY OPERATOR SLAG Office Visit [facility] - Pulmonology [address] [place] [address], [place] [address] Andrew Francis MD [address] [place] [address] 2L DIV OF PULMONARY/[place] [address] documented as of this encounter Procedures Procedure Name Priority Date/Time Associated Diagnosis Comments ARTERIAL LINE NOTE Routine 08/17/2019 8: 32 AM DINKEY OPERATOR SLAG ENDOTRACHEAL TUBE NOTE Routine 08/17/2019 8:31 AM DINKEY OPERATOR SLAG documented in this encounter Results * ARTERIAL LINE PERFORMABLE (08/17/2019 8:32 AM DINKEY OPERATOR SLAG) Fidel Cevallos DO - 08/17/2019 8:32 AM DINKEY OPERATOR SLAG Fidel Mistry DO ? 08/17/2019 ??8:32 AM Arterial Line Placement Procedure Note Patient Location: OR. Procedure: Arterial Line ([id number]). Procedure Section ?? Indications: hypotension, continuous blood [...] Staff Section ?? Anesthesia Provider: Fidel Mistry DO Performed the procedure Provider #1: Rodney Light MD. Rodney Light MD GENERAL ANESTHESIA O RDERABLES * ETT LINE PERFORMABLE (08/17/2019 8:31 AM DINKEY OPERATOR SLAG) Fidel Cevallos DO - 08/17/2019 8:31 AM DINKEY OPERATOR SLAG Fidel Mistry DO ? 08/17/2019 ??8:32 AM Endotracheal Tube Placement: ? Patient Location: OR. Intubation Event Date/Time: ??08/17/2019 7:41 AM Procedure: intubation ([id number]). Procedure Section: ?? Sedation: under general anesthesia. [...] 7:41 AM. Staff Section ?? Anesthesia Provider: Mistry, Fidel Andrew, DO, Performed the procedure Provider #1: Rodney Light MD. Rodney Light MD GENERAL ANESTHESIA O RDERABLES documented in this encounter Visit Diagnoses Not on filedocumented in this encounter Administered Medications Inactive Administered Medications - up to 3 most recent administrations Medication Order MAR Action Action Date Dose Rate Site cefOXitin (MEFOXIN) injection PRN, Starting on Fri08/17/19 at 0825, Until Fri08/17/19 at 1108, Anesthesia Intra-op $ Given 08/17/2019 10:21 AM DINKEY OPERATOR SLAG 2 g $ Given 08/17/2019 8:25 AM DINKEY OPERATOR SLAG 2 g Dexamethasone Sod Phosphate PF injection Intravenous, PRN, Starting on Fri08/17/19 at 0825, Until Fri08/17/19 at 1108, Anesthesia Intra-op $ Given 08/17/2019 8:25 AM DINKEY OPERATOR SLAG 4 mg fentaNYL (PF) (SUBLIMAZE) injection Intravenous, PRN, Starting on Fri08/17/19 at 0738, Until Fri08/17/19 at 1108, Anesthesia Intra-op $ Given 08/17/2019 7:38 AM DINKEY OPERATOR SLAG 200 mcg HYDROmorphone HCl-NaCl 2-0.9 MG/10ML-% SOSY Intravenous, PRN, Starting on Fri08/17/19 at 0916, Until Fri08/17/19 at 1108, Anesthesia Intra-op $ Given 08/17/2019 9:57 AM DINKEY OPERATOR SLAG 1 mg $ Given 08/17/2019 9:16 AM DINKEY OPERATOR SLAG 1 mg isolyte-S pH 7.4 infusion CONTINUOUS PRN, Starting on Fri08/17/19 at 0808, Until Fri08/17/19 at 1108, Anesthesia Intra-op $ New Bag/Syringe 08/17/2019 8:08 AM DINKEY OPERATOR SLAG lactated ringers infusion CONTINUOUS PRN, Starting on Fri08/17/19 at 0730, Until Fri08/17/19 at 1108, Anesthesia Intra-op $ New Bag/Syringe 08/17/2019 10:41 AM DINKEY OPERATOR SLAG $ New Bag/Syringe 08/17/2019 7:30 AM DINKEY OPERATOR SLAG lidocaine hcl (PF) (XYLOCAINE MPF) 2 % injection Infiltration, PRN, Starting on Fri08/17/19 at 0738, Until Fri08/17/19 at 1108, Anesthesia Intra-op $ Given 08/17/2019 7:38 AM DINKEY OPERATOR SLAG 100 mg midazolam (VERSED) injection Intravenous, PRN, Starting on Fri08/17/19 at 0738, Until Fri08/17/19 at 1108, Anesthesia Intra-op $ Given 08/17/2019 7:38 AM DINKEY OPERATOR SLAG 2 mg Ondansetron HCl (ZOFRAN) injection Intravenous, PRN, Starting on Fri08/17/19 at 1025, Until Fri08/17/19 at 1108, Anesthesia Intra-op $ Given 08/17/2019 10:25 AM DINKEY OPERATOR SLAG 4 mg propofol (DIPRIVAN) injection Intravenous, PRN, Starting on Fri08/17/19 at 0738, Until Fri08/17/19 at 1108, Anesthesia Intra-op $ Given 08/17/2019 7:38 AM DINKEY OPERATOR SLAG 200 mg rocuronium (ZEMURON) injection Intravenous, PRN, Starting on Fri08/17/19 at 0738, Until Fri08/17/19 at 1108, Anesthesia Intra-op $ Given 08/17/2019 9:34 AM DINKEY OPERATOR SLAG 20 mg $ Given 08/17/2019 9:12 AM DINKEY OPERATOR SLAG 30 mg $ Given 08/17/2019 8:27 AM DINKEY OPERATOR SLAG 35 mg sugammadex (BRIDION) injection Intravenous, PRN, Starting on Fri08/17/19 at 1050, Until Fri08/17/19 at 1110, Anesthesia Intra-op $ Given 08/17/2019 10:50 AM DINKEY OPERATOR SLAG 300 mg documented in this encounter Care Teams Biomedical Equipment Tech Relationship Specialty Start Date End Date Ran Nuñez MD [address] [place] [address] PCP - General Family Medicine 03/22/19 12/22/20 Hillary Apple MD [address] [place] [address] Hematology and Oncology 03/17/19 Bill Ferrera MD [address] [place] [address] Hematology and Oncology 03/17/19 08/27/21 Tony Dumont MD [facility] [place] [address] Hematology and Oncology 03/17/19 Shalini Segal MD [facility] [place] [address] Hematology and Oncology 03/17/19 09/29/19 Karie Jones, RN Registered Nurse 03/17/19 09/21/19 Maryjo Reinoso LCSW Senior Search Marketing Analyst 03/17/19 Madyson Clay, PharmD 03/17/19 Dana Lala TEMPLATE FITTER-SUPERVISOR/PORT DIRECTOR [address] [place], [place] [address] [place] [address] Oncology 03/17/19 Mckinley Silver PA-C [address] [place], [place] [address]TA [facility] 2nd [place] [address] Physician Timers Inspector 03/17/19 09/08/19 Tiffanie Nguyen, TEMPLATE FITTER-REGASIFICATION PLANT OPERATOR [address] [place] [address] 2nd [place] [address] Family Medicine 03/17/19 Stephanie Mahoney, RN Registered Nurse 03/17/19 10/29/21 Alycia Galvan, ROSEMARY 03/17/19 10/29/21 Cesar Tavares MD [address] [place] [address] Referring Physician Medical Oncology 03/23/19 Karie Jones, RN Registered Nurse 06/08/19 10/29/21 documented as of this encounter
--- OUTSIDE RECORDS SUMMARY | 2024-08-18 00:34 | XMS_ITS | Encounter Summary ---
Author Organization [facility] Address [address] [facility] [place] [address] Care Team Providers Care Potline Monitor Name Role Phone Hillary Apple MD Unavailable [phone] Bill Ferrera MD Unavailable [phone] Tony Dumont MD Unavailable [phone] Shalini Segal MD Unavailable [phone] Karie Jones RN Unavailable Unavailable Maryjo Reinoso COMBINE OPERATOR Unavailable Unavailable Madyson Clay PharmD Unavailable Unavaila Dana Galicia GROUP CHIEF OPERATOR-NURSING ADMINISTRATOR Unavailable [phone] Mckinley Silver PA-C Unavailable Unavail able Patrick, Tiffanie Seymour GROUP CHIEF OPERATOR-CIGARETTE PACKAGE EXAMINER Unavailable [phone] Stephanie Mahoney RN Unavailable Unavailable Alycia Galvan RN Unavailable UnavailRan Mejía MD Primary Care Provider Cesar Tavares MD Unavailable [phone] Karie Jones RN Unavailable Unavailable Encounter Details Date Type Department Care Team (Latest Contact Info) Description 08/11/2019 8:00 AM LBD TEACHER Procedure visit [facility] [address] [place] [address] Travon Chavez MD [address] [place] [address] Pre-transplant evaluation for stem cell transplant Social [...] Sign Reading Time Taken Comments Blood Pressure 144/85 08/11/2019 8:30 AM LBD TEACHER Pulse 76 08/11/2019 8:30 AM LBD TEACHER Temperature 37 ??C (98.6 ??F) 08/11/2019 8:30 AM LBD TEACHER Respiratory Rate - - Oxygen Saturation - - Inhaled Oxygen Concentration - - Weight 127.1 kg (280 lb 4.8 oz) 08/11/2019 8:30 AM LBD TEACHER Height 172.7 cm (5' 8 ) 08/11/2019 8:30 AM LBD TEACHER Body Mass Index 42.62 08/11/2019 8:30 AM LBD TEACHER documented in this encounter Progress Notes * Skylar Peterson, RN - 08/11/2019 8:20 AM CST Diagnosis: Pre transplant evaluation RN verified patient has no implanted devices and NPO for prior 3 hours. Vital signs taken, procedure explained and consent signed. Date of Exam: 08/11/2019 Liver Stiffness: (LSM, kPa) median: 3.5 IQR (interquartile range): 0.5 IQR/Median% (ideally < 30%): 14 CAP (controlled attenuation parameter): 400 Technical Difficulty: None Ordering Provider: Tiffanie Nguyen BIOMEDICAL MANAGER Phone Fax Fibroscan interpretation: I have personally [...] patients with nonalcoholic fatty liver disease. Gastroenterology 2019;156:9122-0661. Renuka MS, Desire R, Van Yoan ML, et al. Vibration-controlled transient elastography to assess fibrosis and steatosis in patients with nonalcoholic fatty liver disease. Clin Gastroenterol Hepatol 2019;17:156-163. Note: 1. Fibroscan cannot reliably identify earlier stages of fibrosis (ie distinguish F0 from F1 and F2)and thus a histologic stage cannot be predicted from the Fibroscan reading. 2. Assessing the likelihood of advanced fibrosis in patients with indeterminate liver stiffness measurement (LSM) by Fibroscan (e.g., 8-15 kPa) can be improved by also calculating the FIB4 score (Kielyduke et al. Hepatology Communications 2019;3:4182-6386) or NAFLD Fibrosis score (Moura et al. Clinical Gastroenterology and Hepatology 2019;17:3821-3944. from routine clinical data. 3. Liver stiffness [...] change as additional supporting data becomes available. [email or web address] TEACHER documented in this encounter Procedure Notes * Travon Merchant MD - 08/15/2019 9:31 PM CSTAssociated Order(s): PROC FIBROSCAN Procedure(s): PA LIVER ELASTOGRAPHY Pre-Procedure Diagnose(s): Pre-transplant evaluation for stem cell transplant Diagnosis: Pre transplant evaluation RN verified patient has no implanted devices and NPO for prior 3 hours. Vital signs taken, procedure explained and consent signed. Date of Exam: 08/11/2019 Liver Stiffness: (LSM, kPa) median: 3.5 IQR (interquartile range): 0.5 IQR/Median% (ideally < 30%): 14 CAP (controlled attenuation parameter): 400 Technical Difficulty: None Ordering Provider: Tiffanie Nguyen BIOMEDICAL MANAGER Phone Fax Fibroscan interpretation: I have personally [...] patients with nonalcoholic fatty liver disease. Gastroenterology 2019;156:9401-4035. Renuka MS, Desire R, Van Yoan ML, et al. Vibration-controlled transient elastography to assess fibrosis and steatosis in patients with nonalcoholic fatty liver disease. Clin Gastroenterol Hepatol 2019;17:156-163. Note: 1. Fibroscan cannot reliably identify earlier stages of fibrosis (ie distinguish F0 from F1 and F2)and thus a histologic stage cannot be predicted from the Fibroscan reading. 2. Assessing the likelihood of advanced fibrosis in patients with indeterminate liver stiffness measurement (LSM) by Fibroscan (e.g., 8-15 kPa) can be improved by also calculating the FIB4 score (Patel et al. Hepatology Communications 2019;3:2697-1101) or NAFLD Fibrosis score (Moura et al. Clinical Gastroenterology and Hepatology 2019;17:8686-1156. from routine clinical data. 3. Liver stiffness [...] change as additional supporting data becomes available. [email or web address] TEACHER documented in this encounter Plan of Treatment Upcoming Encounters Date Type Department Care Team (Late st Contact Info) Description 08/26/2024 11:00 AM LBD TEACHER Office Visit [facility] - Pulmonology [address] [place] [address], [place] [address] Andrew Francis MD [address] [place] [address] DIV OF PULMONARY/[place] [address] documented as of this encounter Procedures Procedure Name Priority Date/Time Associated Diagnosis Comments PA LIVER ELASTOGRAPHY Routine 08/15/2019 9:31 PM LBD TEACHER Pre-transplant evaluation for stem cell transplant documented in this encounter Results * PA LIVER ELASTOGRAPHY (08/15/2019 9:31 PM LBD TEACHER) Narrative Travon Merchant MD - 08/15/2019 9:31 PM LBD TEACHER Travon Merhcant MD ? 08/15/2019 ??9:31 PM Diagnosis: Pre transplant evaluation RN verified patient has no implanted devices and NPO for prior 3 hours. Vital signs taken, procedure explained and consent signed. Date of Exam: 08/11/2019 Liver Stiffness: (LSM, kPa) median: ??3.5 IQR (interquartile range): ?? 0.5 IQR/Median% (ideally < 30%): ??14 CAP (controlled attenuation parameter): ??400 Technical Difficulty: None Ordering Provider: Tiffanie Nguyen BIOMEDICAL MANAGER Phone Fax Fibroscan interpretation: I have personally [...] patients with nonalcoholic fatty liver disease. Gastroenterology 2019;156:0510-7749. Renuka MS, Desire R, Van Yoan ML, [...] improved by also calculating the FIB4 score (Leiuke et al. Hepatology Communications 2019;3:7834-4104) or NAFLD Fibrosis score (Moura et al. Clinical Gastroenterology and Hepatology 2019;17:2526-2301. from routine clinical data. 3. Liver stiffness [...] change as additional supporting data becomes available. [email or web address] Tiffanie Seymour Patrick GROUP CHIEF OPERATOR-CIGARETTE PACKAGE EXAMINER PROCEDURE/MINOR SURGICAL ORDERABLES documented in this encounter Visit Diagnoses Diagnosis Pre-transplant evaluation for stem cell transplant- Primary documented in this encounter Care Teams Potline Monitor Relationship Specialty Start Date End Date Ran Nuñez MD [address] [place] [address] PCP - General Family Medicine 03/22/19 12/22/20 Hillary Apple MD [address] [place] [address] Hematology and Oncology 03/17/19 Bill Ferrera MD [address] [place] [address] Hematology and Oncology 03/17/19 08/27/21 Tony Dumont MD [address] [place] [address] Hematology and Oncology 03/17/19 Shalini Segal MD [address] [place] [address] Hematology and Oncology 03/17/19 09/29/19 Karie Jones, RN Registered Nurse 03/17/19 09/21/19 Maryjo Reinoso LCSW Pro Shop Attendant 03/17/19 Madyson Clay, PharmD 03/17/19 Dana Lala GROUP CHIEF OPERATOR-NURSING ADMINISTRATOR [address] [place] [address] [address]nd [place] [address] Oncology 03/17/19 Mckinley Silver PA-C [address] [place] [address] [address]nd [place] [address] Physician Jewelry Sales Coordinator 03/17/19 09/08/19 Tiffanie Nguyen GROUP CHIEF OPERATOR-CIGARETTE PACKAGE EXAMINER [address] [place] [address] [address]nd [place] [address] Family Medicine 03/17/19 Stephanie Mahoney, RN Registered Nurse 03/17/19 10/29/21 Alycia Galvan, ROSEMARY 03/17/19 10/29/21 Cesar Tavares MD [address] [place] [address] Referring Physician Medical Oncology 03/23/19 Karie Jones, RN Registered Nurse 06/08/19 10/29/21 documented as of this encounter
--- OUTSIDE RECORDS SUMMARY | 2024-08-18 00:34 | XMS_ITS | Encounter Summary ---
Author Organization [facility] Address [address] [facility] [place] [address] Care Team Providers Care Division Toll Wire Chief Name Role Phone Hillary Apple MD Unavailable [phone] Bill Ferrera MD Unavailable [phone] Tony Dumont MD Unavailable [phone] Shalini Segal MD Unavailable [phone] Karie Jones RN Unavailable Unavailable Maryjo Reinoso LCSW Unavailable Unavailable Madyson Clay PharmD Unavailable Unavaila Dana Galicia CRM CAMPAIGN MANAGER-FINAL BLOCK PRESS OPERATOR Unavailable [phone] Mckinley SilverC Unavailable Unavail able PatrickTiffanie hammer APRN-TRAVELING REPRESENTATIVE Unavailable [phone] Stephanie Mahoney RN Unavailable Unavailable Alycia Galvan RN Unavailable UnavailRan Mejía MD Primary Care Provider Cesar Tavares MD Unavailable [phone] Karie Jones RN Unavailable Unavailable Encounter Details Date Type Department Care Team (Latest Contact Info) Description 08/11/2019 11:08 AM [facility] [employer] [employer] - 08/11/2019 12:41 PM [facility] [employer] Hospital Encounter [facility] [address] [place] [address] Patrick, Tiffanie Seymour APRN-TRAVELING REPRESENTATIVE [address] [place] [address] Discharge Disposition: Home or Self Care Social [...] Sign Reading Time Taken Comments Blood Pressure 129/70 08/11/2019 11:16 AM [facility] [employer] Pulse 69 08/11/2019 11:16 AM [facility] [employer] Temperature 36.8 ??C (98.3 ??F) 08/11/2019 1 1:16 AM [facility] [employer] Respiratory Rate 16 08/11/2019 11:1 6 AM [facility] [employer] Oxygen Saturation 100% 08/11/2019 11: 16 AM [facility] [employer] Inhaled Oxygen Concentration - - Weight 127.4 kg (280 lb 12.8 oz) 2019 11:16 AM [facility] [employer] Height - - Body Mass Index 42.7 08/11/2019 8:30 AM [facility] documented in this encounter Medications at Time [...] 2 times daily 60 capsule 08/19/2019 10/13/2019 docusate sodium (COLACE) 100 MG capsule Take 1 capsule by mouth 2 times daily 60 capsule 08/18/2019 08/19/2019 escitalopram (LEXAPRO) 10 MG tablet Take 1 tablet by mouth once daily 30 tablet 11 08/11/2019 08/12/2019 escitalopram (LEXAPRO) 10 MG tablet Take 1 tablet by mouth once daily 30 tablet 06/28/2019 07/03/2020 HYDROcodone-acetamin ophen (NORCO) 5-325 MG tablet Take 1 tablet by mouth every 4 hours as needed 03/09/2019 08/19/2019 ibuprofen (MOTRIN) 600 MG tablet Take 1 tablet by mouth every 6 hours 08/18/2019 10/13/2019 lidocaine-prilocaine (EMLA) 2.5-2.5 % cream Apply to [...] as of this encounter Progress Notes * Hillary Apple MD - 08/11/2019 3:59 PM CST I saw Aurelio today to discuss a change in pre-transplant planning. Even though he achieved a spleen response, I had concerns about splenic rupture with G-CSF mob. These concerns were shared by outside lymphoma transplant experts as I polled them. 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 I appreciate Dr. Kent accomodating a visit quickly. Will vaccinate today. See Dr. Kent tomorrow. Tentatively plan OR from 08/17/19. Defer mob start on 08/20/19 and reschedule when recovered from splenectomy. Reiterated need for marijuana abstinence. Hillary Apple MD MSc television host Interim Director, Division of Hematology/Oncology [facility] SPACE CONTROL AND WARNING SYSTEMS documented in this encounter Plan of Treatment Upcoming Encounters Date Type Department Care Team (Late st Contact Info) Description 08/26/2024 11:00 AM [employer] Office Visit [facility] Group - Pulmonology [address] [place] [address], [place] [address] Andrew Francis MD [address] [place] [address] [address] DIV OF PULMONARY/[place] [address] documented as of this encounter Procedures Procedure Name Priority Date/Time Associated Diagnosis Comments CBC W AUTO DIFFERENTIAL STAT 08/11/2019 11:16 AM [facility] [employer] Diffuse large B-cell lymphoma, unspecified body region (HCC) documented in this encounter Results * (ABNORMAL) CBC W AUTO DIFFERENTIAL (08/11/2019 11:16 AM [facility] [employer]) WBC 2.3(L) 3.5 - 10.5 10? 3 /uL 08/11/2019 11:33 AM [facility] Comment:All CBC parameters h ave been checked. RBC 3.88(L) 4.30 - 5.70 10? 6 /uL 08/11/2019 11:33 AM [facility] Hemoglobin 11.6(L) 13.5 - 17.5 g/dL 08/11/2019 11:33 AM [facility] Hematocrit 33.6(L) 39.0 - 50.0 % 08/11/2019 11:33 AM [facility] MCV 86.6 81.0 - 97.0 fL 08/11/2019 11:33 AM [facility] MCH 29.9 28.0 - 34.0 pg 08/11/2019 11:33 AM [facility] MCHC 34.5 32.0 - 36.0 g/dL 08/11/2019 11:33 AM [facility] Platelet Count 60(L) 150 - 400 10? 3 /uL 08/11/2019 11:33 AM [facility] Comment:Checked with the pre vious result. RDW-SD 44.5 36.0 - 50.0 fL 08/11/2019 11:33 AM [facility] RDW-CV 14.3 11.2 - 14.8 % 08/11/2019 11:33 AM [facility] MPV 9.5 9.3 - 12.8 fL 08/11/2019 11:33 AM [facility] nRBC Absolute 0.00 0 10? 3 /uL 08/11/2019 11:33 AM [facility] nRBC Auto 0.0 0 /100 WBC 08/11/2019 11:33 AM [facility] Neutrophils % 61.9 35.0 - 70.0 % 08/11/2019 11:33 AM [facility] Lymphocytes % 18.4(L) 19.7 - 55.1 % 08/11/2019 11:33 AM [facility] Monocytes % 12.4 3.0 - 15.0 % 08/11/2019 11:33 AM [facility] Eosinophils % 5.6 0.0 - 6.0 % 08/11/2019 11:33 AM [facility] Basophil % 1.3 0.0 - 1.5 % 08/11/2019 11:33 AM [facility] Neutrophils Absolute 1.5(L) 1.6 - 7.0 10? 3 /uL 08/11/2019 11:33 AM [facility] Lymphocyte Absolute 0.4(L) 0.8 - 2.9 10? 3 /uL 08/11/2019 11:33 AM [facility] Monocytes Absolute 0.29 0.14 - 0.66 10? 3 /uL 08/11/2019 11:33 AM [facility] Eosinophils Absolute 0.13 0.00 - 0.45 10? 3 /uL 08/11/2019 11:33 AM [facility] Basophils Absolute 0.03 0.00 - 0.06 10? 3 /uL 08/11/2019 11:33 AM [facility] Immature Granulocytes % 0.4 0.0 - 1.0 % 08/11/2019 11:33 AM [facility] Blood BLOOD SPECIMEN / Unknown Venipuncture / Unknown 08/11/2019 11:16 AM [facility] [employer] [employer] 08/11/2019 11:22 AM [facility] Tiffanie Nguyen CRM CAMPAIGN MANAGER-TRAVELING REPRESENTATIVE LAB - HEMATOLOG Y ORDERABLES [facility] [address] [place] [address], [facility] [phone] documented in this encounter Visit Diagnoses Diagnosis Diffuse large B-cell lymphoma, unspecified body region (HCC)- Primary Pre-transplant evaluation for stem cell transplant Anxiety Anxiety state, unspecified documented in this encounter Care Teams Division Toll Wire Chief Relationship Specialty Start Date End Date Ran Nuñez MD [address] [place] [address] PCP - General Family Medicine 03/22/19 12/22/20 Hillary Apple MD [address] [place] [address] Hematology and Oncology 03/17/19 Bill Ferrera MD [address] [place] [address] Hematology and Oncology 03/17/19 08/27/21 Tony Dumont MD [address] [place] [address] Hematology and Oncology 03/17/19 Shalini Segal MD [address] [place] [address] Hematology and Oncology 03/17/19 09/29/19 Karie Jones, ROSEMARY Registered Nurse 03/17/19 09/21/19 Maryjo Reinoso LCSW Field Kiln Burner 03/17/19 Madyson Clay, PharmD 03/17/19 Dana Lala APRN-FINAL BLOCK PRESS OPERATOR [address] [place] [address] [address]nd [place] [address] Oncology 03/17/19 Mckinley Silver PA-C [address]nd [place] [address] Physician Roller Turner 03/17/19 09/08/19 Tiffanie Nguyen APRN-ERIKA [address] [place] [address] Family Medicine 03/17/19 Stephanie aMhoney, RN Registered Nurse 03/17/19 10/29/21 Alycia Galvan, ROSEMARY 03/17/19 10/29/21 Cesar Tavares MD [address] [place] [address] Referring Physician Medical Oncology 03/23/19 Karie Jones, RN Registered Nurse 06/08/19 10/29/21 documented as of this encounter
--- OUTSIDE RECORDS SUMMARY | 2024-08-18 00:34 | XMS_ITS | Encounter Summary ---
Author Organization [facility] Address [address] [facility] [place] [address] Care Team Providers Care Opener Tender Name Role Phone Hillary Apple MD Unavailable [phone] Bill Ferrera MD Unavailable [phone] Tony Dumont MD Unavailable [phone] Shalini Segal MD Unavailable [phone] Karie Jones RN Unavailable Unavailable Maryjo Reinoso LCSW Unavailable Unavailable Madyson Clay PharmD Unavailable Unavaila Dana Galicia BREAKER MACHINE OPERATOR-SLEEVE TURNER Unavailable [phone] Mckinley SilverC Unavailable Unavail able PatrickTiffanie hammer APRN-STOPPER MAKER HELPER Unavailable [phone] Stephanie Mahoney RN Unavailable Unavailable Alycia Galvan RN Unavailable UnavailRan Mejía MD Primary Care Provider Cesar Tavares MD Unavailable [phone] Karie Jones RN Unavailable Unavailable Reason for Referral * Radiology Services (Routine) - Closed Specialty Diagnoses / Procedures Referred By Deng t Referred To Contact Echosonography Diagnoses Pre-transplant evaluation for stem cell transplant Procedures ECHO COMPLETE Patrick, Tiffanie [place] APRN-STOPPER MAKER HELPER [address] [place] [address] [facility] Echo [address] [place] [address] Referral ID Status Reason Start Date Expiration Date Visits Re quested Visits Authorized [id number] Closed 06/28/2019 12/25/2019 1 1 ENTICE TECHNICIAN Reason for Visit * Radiology Services (Routine) - Closed Specialty Diagnoses / Procedures Referred By Contac t Referred To Contact Echosonography Diagnoses Pre-transplant evaluation for stem cell transplant Procedures ECHO COMPLETE Tiffanie Nguyen APRN-CNP [address] [place] [address] [facility] Echo [address] [place] [address] Referral ID Status Reason Start Date Expiration Date Visits Re quested Visits Authorized [id number] Closed 06/28/2019 12/25/2019 1 1 Encounter Details Date Type Department Care Team (Latest Contact Info) Description 08/11/2019 10:17 AM APPRENTICE TECHNICIAN - 08/11/2019 11:07 AM APPRENTICE TECHNICIAN Hospital [facility] [address] [place] [address] Tiffanie Nguyen APRN-CNP [address] [place] [address] Discharge Disposition: Home or Self Care Social History Tobacco Use Types Packs/Day Years Used Date Smoking Tobacco: Never Assessed Sex and Gender Information Value Date Recorded Sex Assigned at Male 03/27/2022 11:34 AM CDT Gender Identity Male 03/27/2022 11:34 AM CDT Sexual Orientation Straight 03/27/2022 11 :34 AM CDT documented as of this encounter Medications at [...] needed for Pain 30 tablet 08/19/2019 09/17/2019 polyethylene glycol 3350 (MIRALAX) packet Take 17 g by mouth once daily as needed for Constipation 10/29/2019 prochlorperazine (COMPAZINE) 10 MG tablet Take 10 mg by mouth every 6 hours as needed 04/27/2019 12/20/2021 documented as of this encounter Plan of Treatment Upcoming Encounters Date Type Department Care Team (Late st Contact Info) Description 08/26/2024 11:00 AM APPRENTICE TECHNICIAN Office Visit [facility] - Pulmonology [address] [place] [address], [place] [address] Andrew Francis MD [address] [place] [address] DIV OF PULMONARY/[place] [address] documented as of this encounter Procedures Procedure Name Priority Date/Time Associated Diagnosis Comments ECHO COMPLETE Routine 08/11/2019 11:03 AM APPRENTICE TECHNICIAN Pre-transplant evaluation for stem cell transplant documented in this encounter Results * ECHO COMPLETE (08/11/2019 11:03 AM APPRENTICE TECHNICIAN) Anatomical Region Laterality Modality Echo 08/11/2019 10:2 8 AM APPRENTICE TECHNICIAN Narrative Procedure Note Olivia Payan MD - 08/11/2019 Tiffanie Nguyen BREAKER MACHINE OPERATOR-STOPPER MAKER HELPER ECHOCARDIOGRAPH Y RADIANT documented in this encounter Visit Diagnoses Diagnosis Pre-transplant evaluation for stem cell transplant documented in this encounter Administered Medications Inactive Administered Medications - up to 3 most recent administrations Medication Order MAR Action Action Date Dose Rate Site perflutren Lipid Microsphere (DEFINITY) injection SUSP 1.5 mL 1.5 mL, Intravenous, INTRA-PROCEDURE ONCE, 1 dose, On Fri08/11/19 at 1045, Shake well before using. $ Given 08/11/2019 10:51 AM APPRENTICE TECHNICIAN 1.5 mL documented in this encounter Care Teams Opener Tender Relationship Specialty Start Date End Date Ran Nuñez MD [address] [facility] [place] [address] PCP - General Family Medicine 03/22/19 12/22/20 Hillary Apple MD [address] [place] [address] Hematology and Oncology 03/17/19 Bill Ferrera MD [address] [place] [address] Hematology and Oncology 03/17/19 08/27/21 Tony Dumont MD [address] [place] [address] Hematology and Oncology 03/17/19 Shalini Segal MD [address] [place] [address] Hematology and Oncology 03/17/19 09/29/19 Karie Jones, RN Registered Nurse 03/17/19 09/21/19 Maryjo Reinoso LCSW R And D Lab Technician 03/17/19 Madyson Clay, PharmD 03/17/19 Dana Lala BREAKER MACHINE OPERATOR-SLEEVE TURNER [address] [facility] 2nd [place] [address] Oncology 03/17/19 Mckinley Silver PA-C [facility] [place] [address] Physician Skin Care Therapist 03/17/19 09/08/19 Tiffanie Nguyen, BREAKER MACHINE OPERATOR-STOPPER MAKER HELPER [address] [place] [address] [place] [address] Family Medicine 03/17/19 Stephanie Mahoney, RN Registered Nurse 03/17/19 10/29/21 Alycia Galvan, ROSEMARY 03/17/19 10/29/21 Cesar Tavares MD [address] [place] [address] Referring Physician Medical Oncology 03/23/19 Karie Jones, RN Registered Nurse 06/08/19 10/29/21 documented as of this encounter
--- OUTSIDE RECORDS SUMMARY | 2024-08-18 00:34 | XMS_ITS | Encounter Summary ---
Author Organization [facility] Address [address] [place] [address] Care Team Providers Care Care Transition Manager Name Role Phone Hillary Apple MD Unavailable [phone] Bill Ferrera MD Unavailable [phone] Tony Dumont MD Unavailable [phone] Shalini Segal MD Unavailable [phone] Karie Jones RN Unavailable Unavailable Maryjo ReinosoW Unavailable Unavailable Madyson Clay PharmD Unavailable Unavaila Dana Galicia AUTHORIZATION COORDINATOR-BOILER ROOM HELPER Unavailable [phone] Mckinley Silver-C Unavailable Unavail able Patrick, Tiffanie [place] AUTHORIZATION COORDINATOR-ENVIRONMENTAL FIELD PROFESSIONAL Unavailable [phone] Stephanie Mahoney RN Unavailable Unavailable Alycia Galvan RN Unavailable UnavailRan Mejía MD Primary Care Provider Cesar Tavares MD Unavailable [phone] Karie Jones RN Unavailable Unavailable Encounter Details Date Type Department Care Team (Latest Contact Info) Description 08/12/2019 2:46 PM ENVIRONMENTAL STUDIES DEPARTMENT CHAIR - 08/12/2019 11:59 PM ENVIRONMENTAL STUDIES DEPARTMENT CHAIR Hospital Encounter [facility] PAT [address] [place] [address] Chloe Kent MD [address] [facility] 2L DIV OF [facility] [place] [address] Radiology Diagnostic Discharge Disposition: Home or Self Care Anesthesia Record Procedure Summary Procedure Name Responsible [...] Room 1106 ANPTO2 1108 An Stop Meds * Agents No agents on file. * Blood No blood administrations on file. Lines, Drains, and Airways Type Details Placement Removal Implanted Port Right; Chest; ; 1037 06/09/19 1355 by 09/17/19 1037 by Anabel Remy, ROSEMARY Peripheral IV Orientation: Left; Placed By: tb 08/17/19 0832 by 08/18/19 0008 by Vane Ferrera RN Peripheral IV Date: 08/17/19; Time : 0701; Orientation: Right; Placed By: Joseph Nevarez RN; Tolerance: Moderate 08/17/19 0701 by Renita Nevarez RN 08/18/19 0008 by Vane Ferrera, ROSEMARY ETT Date: 08/17/19; Time : 0741; Placed [...] 1104 by Fidel Mistry DO Urethral Catheter 01/14/20; 0750; erin ferreira rn; Coude, Latex, Other [...] sites, and left abd incision site; 08/19/19; 214608/17/19 09 by Ivy Ferreira RN 08/19/192146 by Autogrid, Auto Release documented in this encounter Social [...] Sign Reading Time Taken Comments Blood Pressure 138/86 08/12/2019 2:47 PM ENVIRONMENTAL STUDIES DEPARTMENT CHAIR Pulse 73 08/12/2019 2:47 PM ENVIRONMENTAL STUDIES DEPARTMENT CHAIR Temperature 37.1 ??C (98.8 ??F) 08/12/2019 2:47 PM CS T Respiratory Rate 16 08/12/2019 2:47 PM ENVIRONMENTAL STUDIES DEPARTMENT CHAIR Oxygen Saturation 96% 08/12/2019 2:47 PM ENVIRONMENTAL STUDIES DEPARTMENT CHAIR Inhaled Oxygen Concentration - - Weight 127 kg (280 lb) 08/12/2019 2:47 PM ENVIRONMENTAL STUDIES DEPARTMENT CHAIR Height 171.5 cm (5' 7.5 ) 08/12/2019 2:47 PM ENVIRONMENTAL STUDIES DEPARTMENT CHAIR Body Mass Index 43.21 08/12/2019 2:47 PM ENVIRONMENTAL STUDIES DEPARTMENT CHAIR documented in this encounter Medications at Time [...] (PREVACID PO) Take by mouth as needed 10/13/2019 lidocaine-prilocaine (EMLA) 2.5-2.5 % cream Apply [...] Contact Info) Description 08/26/2024 11:00 AM ENVIRONMENTAL STUDIES DEPARTMENT CHAIR Office Visit [facility] - Pulmonology [address] [place] [address], [place] [address] Andrew Francis MD [address] [place] [address] 2L DIV OF PULMONARY/[place] [address] documented as of this encounter Visit Diagnoses Diagnosis Preoperative examination- Primary Preoperative examination, unspecified documented in this encounter Care Teams Care Transition Manager Relationship Specialty Start Date End Date Ran Nuñez MD [address] [place] [id number] PCP - General Family Medicine 03/22/19 12/22/20 Hillary Apple MD [address] [place] [address] Hematology and Oncology 03/17/19 Bill Ferrera MD [address] [place] [address] Hematology and Oncology 03/17/19 08/27/21 Tony Dumont MD [address] [place] [address] Hematology and Oncology 03/17/19 Shalini Segal MD [address] [place] [address] Hematology and Oncology 03/17/19 09/29/19 Karie Jones, RN Registered Nurse 03/17/19 09/21/19 Maryjo Reinoso, REYNA Work Order Clerk 03/17/19 Madyson Clay, PharmD 03/17/19 Dana Lala AUTHORIZATION COORDINATOR-BOILER ROOM HELPER [address] [place] [address] Oncology 03/17/19 Mckinley Silver PA-C [address] [place] [address] Physician Airport Location Manager 03/17/19 09/08/19 Tiffanie Nguyen, AUTHORIZATION COORDINATOR-ENVIRONMENTAL FIELD PROFESSIONAL [address] [address] Family Medicine 03/17/19 Stephanie Mahoney RN Registered Nurse 03/17/19 10/29/21 Alycia Galvan, ROSEMARY 03/17/19 10/29/21 Cesar Tavares MD [address] [place] [address] Referring Physician Medical Oncology 03/23/19 Karie Jones, RN Registered Nurse 06/08/19 10/29/21 documented as of this encounter
--- OUTSIDE RECORDS SUMMARY | 2024-08-18 00:34 | XMS_ITS | Encounter Summary ---
Author Organization [facility] Address [address] [place] [address] Care Team Providers Care Assistant Secretary Name Role Phone Hillary Apple MD Unavailable [phone] Bill Ferrera MD Unavailable [phone] Tony Dumont MD Unavailable [phone] Shalini Segal MD Unavailable [phone] Karie Jones RN Unavailable Unavailable Maryjo Reinoso LCSW Unavailable Unavailable Madyson Clay PharmD Unavailable Unavaila Dana Galicia COMPTOMETER OPERATOR-PARTS IDENTIFIER Unavailable [phone] Mckinley Silver-C Unavailable Unavail able Patrick, Lara COMPTOMETER OPERATOR-BESSEMER CONVERTER OPERATOR Unavailable [phone] Stephanie Mahoney RN Unavailable Unavailable Alycia Galvan RN Unavailable UnavailRan Mejía MD Primary Care Provider Cesar Tavares MD Unavailable [phone] Karie Jones RN Unavailable Unavailable Reason for Visit * Reason Comments Consultation discuss spleen remov al Encounter Details Date Type Department Care Team (Late st Contact Info) Description 08/12/2019 1:30 PM ASSISTANT TEACHER Office Visit [facility] [address] [place] [address] Chloe Kent MD [address] 2L DIV OF [facility] [place] [address] 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); Hodgkin lymphoma of lymph nodes of multiple regions, unspecified Hodgkin lymphoma type (HCC) Social History Tobacco Use Types Packs/Day [...] Sign Reading Time Taken Comments Blood Pressure 140/95 08/12/2019 1:30 PM ASSISTANT TEACHER Pulse 69 08/12/2019 1:30 PM ASSISTANT TEACHER Temperature 36.6 ??C (97.8 ??F) 08/12/2019 1:30 PM CS T Respiratory Rate - - Oxygen Saturation 97% 08/12/2019 1:30 PM ASSISTANT TEACHER Inhaled Oxygen Concentration - - Weight 124.3 kg (274 lb) 08/12/2019 1:30 PM ASSISTANT TEACHER Height 170.2 cm (5' 7 ) 08/12/2019 1:30 PM ASSISTANT TEACHER Body Mass Index 42.91 08/12/2019 1:30 PM ASSISTANT TEACHER documented in this encounter Progress Notes * Chloe Kent MD - 08/12/2019 2:06 PM CST Chief complaint: Left upper quadrant pain History of Present Illness: Marcello is a 49 year old male 2017 with LUQ abdominal pain found to have NHL.He completed 6 cycles of R-CHOP 08/2017. PET CT at end of treatment showed significant improvement in splenomegaly and lymphadenopathy. He was followed with radiology until February 2019 when he presented with LUQ pain again and was found to have recurrence. He finished his 3rd cycle of Bendamustine/gazyva. He is being evaluated for bone marrow transplant. He is referred by Dr. Apple for splenectomy as he will need G-CSF and there is concern for splenic rupture and as the spleen has been the most symptomatic site of disease. He was vaccinated yesterday. Past Medical History: Diagnosis Date ??? Lymphoma of lymph nodes PSH: Past Surgical History: Procedure Laterality Date ??? ACL RECONSTRUCTION ??? VENOUS ACCESS DEVICE (PORT OR CATHETER) Family history: noncontributory Review of Systems Constitutional: Negative for fatigue, [...] Negative for nausea, vomiting, hemetemesis, hematochezia, constipation, diarrhea.Left upper quadrant abdominal pain Genitourinary: Negative for dysuria, hematuria Skin: Negative for rash Hematologic/lymphatic: Negative for easy bruising Musculoskeletal:Negative for joint pain, muscle pain Neurological: Positive for leg tremors. Negative for headaches, seizures All other review of systems negative Medications & Allergies: Current Outpatient Medications Medication Sig Dispense Refill ??? acyclovir (ZOVIRAX) [...] mouth once daily 30 tablet 11 ??? escitalopram (LEXAPRO) 10 MG tablet Take [...] as needed for nausea or vomiting ??? penicillin v potassium (VEETIDS) 250 MG tablet Take 1 tablet by mouth 2 times daily 60 tablet 5 ??? polyethylene glycol 3350 (MIRALAX) packet Take 17 g by mouth once daily ??? prochlorperazine (COMPAZINE) 10 MG tablet Take 10 mg by mouth every 6 hours as needed No current facility-administered medications for this visit. Not on aspirin, last diclofenac was this am, will stop for surgery Patient has no known allergies. Social History Socioeconomic History ??? Marital status: [...] Tobacco Use ??? Smoking status: Former Smoker ??? Smokeless tobacco: Never Used Substance and Sexual Activity ??? Alcohol use: Not Currently ??? Drug use: Yes Types: Marijuana ??? Sexual activity: Not on file Lifestyle ??? Physical activity: Days per week: Not on file Minutes per session: Not on file ??? Stress: Not on file Relationships ??? Social connections: Talks on phone: Not on file Gets together: Not on file Attends church service: Not on file Active member of [...] ??? Not on file Physical Examination: BP 140/95 Pulse 69 Temp 97.8 ??F (36.6 ??C) (Oral) Ht 5' 7 (1.702 m) Wt 274 lb (124.3 kg) SpO2 97%BMI 42.91 kg/m2 General: Alert, oriented, well nourished. Psychological: In no apparent distress. Affect appropriate to situation. Engaging HEENT: Normocephalic, No scleral icterus, no lymphadenopathy Lungs: Unlabored breathing Heart: Regular rate and rhythm Abdomen: Soft, nontender, nondistended. Enlarged spleen palpated. Skin: No jaundice Musculo-skeletal: Extremities warm and well perfused Pet Ct Whole Body Result Date: 08/11/2019 IMPRESSION: 1. No evidence of recurrent or residual disease ([place] 1). This report was approvedby Tacos Rainey M.D. on 08/11/2019 11:15 AM . Assessment/Plan: All pertinent records and reports available to me and reviewed. We discussed laparoscopic possible open splenectomy. Risks/benefits/alternatives discussed. Risks include, but are not limited to, bleeding, infection, injury to nearby structures, pancreatic leak, need for further procedures, as well as risks of anesthesia including heart attack, stroke, blood clot, and even . After all questions were answered patient gave written and verbal consent to proceed. Tentatively scheduled for 08/17/2019. PAT today. I spent 60 minutes with the patient. Greater than 50% of the time was spent counseling with the patient face to face and coordination of care. 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)- Primary Hodgkin lymphoma of lymph nodes of multiple regions, unspecified Hodgkin lymphoma type (HCC) documented in this encounter Care Teams Assistant Secretary Relationship Specialty Start Date End Date Ran Nuñez MD [address] [place] [address] PCP - General Family Medicine 03/22/19 12/22/20 Hillary Apple MD [address] [place] [address] Hematology and Oncology 03/17/19 Bill Ferrera MD [address] [place] [address] Hematology and Oncology 03/17/19 08/27/21 Tony Dumont MD [address] [place] [address] Hematology and Oncology 03/17/19 Shalini Segal MD [address] [place] [address] Hematology and Oncology 03/17/19 09/29/19 Karie Jones, RN Registered Nurse 03/17/19 09/21/19 Maryjo Reinoso LCSW Glass Processing Worker 03/17/19 Madyson Clay, PharmD 03/17/19 Dana Lala COMPTOMETER OPERATOR-PARTS IDENTIFIER [address] [place], [place] [address] 2nd [place] [address] Oncology 03/17/19 Mckinley Silver PA-C [address] [place] [address] 2nd [place] [address] Physician Manager Motor 03/17/19 09/08/19 Tiffanie Nguyen, COMPTOMETER OPERATOR-BESSEMER CONVERTER OPERATOR [address] [place] [address] 2nd [place] [address] Family Medicine 03/17/19 Stephanie Mahoney, RN Registered Nurse 03/17/19 10/29/21 Alycia Galvan, ROSEMARY 03/17/19 10/29/21 Cesar Tavares MD [address] [place] [phone] Referring Physician Medical Oncology 03/23/19 Karie Jones, RN Registered Nurse 06/08/19 10/29/21 documented as of this encounter
--- OUTSIDE RECORDS SUMMARY | 2024-08-18 00:35 | XMS_ITS | Encounter Summary ---
Author Organization [facility] Address [address] [place] [address] Care Team Providers Care Earth Moving Technician Name Role Phone Hillary Apple MD Unavailable [phone] Bill Ferrera MD Unavailable [phone] Tony Dumont MD Unavailable [phone] Shalini Segal MD Unavailable [phone] Karie Jones RN Unavailable Unavailable Maryjo Reinoso LCSW Unavailable Unavailable Madyson Clay PharmD Unavailable Unavaila Dana Galicia INSEAM TRIMMER-HEAVY EQUIPMENT OPERATOR/PAVER Unavailable [phone] Mckinley SilverC Unavailable Unavail able PatrickTiffanie hammer APRN-BANK ANALYST Unavailable [phone] Stephanie Mahoney RN Unavailable Unavailable Alycia Galvan RN Unavailable UnavailRan Mejía MD Primary Care Provider Cesar Tavares MD Unavailable [phone] Karie Jones RN Unavailable Unavailable Encounter Details Date Type Department Care Team (Latest Contact Info) Description 06/28/2019 1:28 PM [facility] [facility] - 06/28/2019 11:59 PM [employer] Hospital Encounter [facility] [address] [place] [address] Patrick, Tiffanie Seymour APRN-BANK ANALYST [address] [place] [id number] Discharge Disposition: Home or Self Care Social [...] Sign Reading Time Taken Comments Blood Pressure 126/73 06/28/2019 1:43 PM [facility] Pulse 65 06/28/2019 1:43 PM [employer] Temperature 36.8 ??C (98.3 ??F) 06/28/2019 1:43 PM CS T Respiratory Rate 16 06/28/2019 1:43 PM [facility] Oxygen Saturation 98% 06/28/2019 1:43 PM [facility] Inhaled Oxygen Concentration - - Weight 118.4 kg (261 lb 1.6 oz) 06/28/2019 1:43 PM [facility] Height - - Body Mass Index 40.89 06/09/2019 1:07 PM [facility] [facility] documented in this encounter Medications at Time of Discharge Medication Sig Dispensed Refills Start Date End Date acyclovir (ZOVIRAX) 400 MG tablet Take 1 [...] mouth once daily 30 tablet 06/28/2019 07/03/2020 HYDROcodone-acetamino phen (NORCO) 5-325 MG tablet Take 1 tablet by mouth every 4 hours as needed 03/09/2019 08/19/2019 lidocaine-prilocaine (EMLA) 2.5-2.5 % cream Apply to port site 30-60 mins before use. 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 He is now in his 3rd cycle bendamustine/gazyva. Oncologic Treatment History: 04/30/17: Cycle 1 CHOP (Rituxan d/c'd due to severe anaphylactic reaction) 05/20: Cycle 2 CHOP 06/13/17: Cycle 3 CHOP 07/03/17: Cycle 4 R-CHOP (tolerated rituxan well) 07/25/17: Cycle 5 R-CHOP 08/21: Cycle 6 R-CHOP 04/20/19: Cycle 1 Bendamustine/Gazyva 05/18/19: Cycle 2 Bendamustine/Gazyva 06/16/19: Cycle 3 Bendamustine/gazyva Interval History: Aurelio presents to clinic ambulatory, feeling tired Saw dentist this morning, has periodontal disease , recommended pulling all 7 remaining teeth and starting antibiotic, but didn't prescribe anything Stopped smoking 2 weeks ago Decrease in appetite, no N/V. Feels like he's forcing himself to eat. Feels like pain worsened withstopping marijuana as well. No SOB or chest pain. No lightheadedness or dizziness More constipated with increased opiates, added miralax daily Review of Systems A comprehensive 12 point ROS was negative except as noted above. Medications Current Outpatient Medications Medication Sig ??? acyclovir (ZOVIRAX) 400 MG tablet Take 1 tablet by mouth 2 times daily ??? allopurinol (ZYLOPRIM) 300 MG tablet Take 300 mg by mouth once daily ??? BABY ASPIRIN PO Take 81 mg by mouth ??? diclofenac sodium EC (VOLTAREN) 75 MG tablet Take 75 mg by mouth 2 times daily ??? HYDROcodone-acetaminophen (NORCO) 5-325 MG tablet Take 1 tablet by mouth every 4 hours as needed ??? lidocaine-prilocaine (EMLA) 2.5-2.5 % cream Apply to port site 30-60 mins before use. ??? ondansetron, disintegrating, (ZOFRAN ODT) 8 MG tablet Dissolve 1 tablet on top of tongue then swallow with saliva every 8 hours as needed for nausea or vomiting ??? prochlorperazine (COMPAZINE) 10 MG tablet Take 10 mg by mouth every 6 hours as needed No current facility-administered medications for this visit. Allergies: NKA Vitals Vitals: 06/28/19 1343 BP: 126/73 Pulse: 65 Resp: 16 Temp: 98.3 ??F SpO2: 98% Weight: 118.4 kg (261 lb 1.6 oz) Wt Readings from Last 3 Encounters: 06/28/19 118.4 kg (261 lb 1.6 oz) 06/09/19 120.2 kg (264 lb 14.4 oz) 06/09/19 120.3 kg (265 lb 3.2 oz) Physical Exam Karnofsky/ECO/0 Physical Examination: General appearance - alert, well appearing, and in no distress Mental status - alert, oriented to person, place, and time Mouth - mucous membranes moist, pharynx normal without lesions Lymphatics - spleen not palpable Chest - clear to auscultation, no wheezes, rales or rhonchi, symmetric air entry Heart - normal rate, regular rhythm, normal S1, S2, no murmurs, rubs, clicks or gallops Abdomen - LUQ tenderness Musculoskeletal - no joint tenderness, deformity or swelling Extremities - peripheral pulses normal, no pedal edema, no clubbing or cyanosis Skin - normal coloration and turgor, no rashes, no suspicious skin lesions noted Labs Recent Labs Component Name 06/28/19 1351 06/09/19 1341 05/24/19 1206 03/22/19 1500 WBC 3.5 2.7* 2.7* 3.0* RBC 4.56 4.55 4.60 4.46 HGB 12.6* 12.2* 11.6* 11.6* HCT 36.6* 36.5* 35.8* 35.6* MCV 80.3* 80.2* 77.8* 79.8* MCH 27.6* 26.8* 25.2* 26.0* MCHC 34.4 33.4 32.4 32.6 PLTCOUNT 37* 40* 28* 59* RDWSD 50.3* 53.7* 50.6* 39.7 RDW 17.2* 18.5* 18.3* 13.8 MPV - - - 10.2 NRBCABS 0.00 0.00 0.00 0.00 NRBCAUTOPCT 0.0 0.0 0.0 0.0 NEUTPCT 75.7* 67.2 75.2* 50.7 LYMPHSPCT 8.1* 16.6* 8.6* 36.5 MONOPCT 9.5 10.3 9.0 6.4 EOSPCT 4.9 4.4 5.6 5.1 BASOPCT 1.2 1.1 0.8 1.0 IMMGRANSPCT 0.6 0.4 0.8 0.3 NEUTABS 2.6 1.8 2.0 1.5* LYMPHS 0.3* 0.5* 0.2* 1.1 MONO 0.33 0.28 0.24 0.19 EOS 0.17 0.12 0.15 0.15 BASO 0.04 0.03 0.02 0.03 Recent Labs Component Name 06/28/19 1351 06/09/19 1341 05/24/19 1206 BUN 11 16 17 CREATININE 1.6* 1.0 1.0 NA 141 143 140 POTASSIUM 4.1 4.3 4.8* CL 109* 109* 106 CO2 25 26 26 GLU 97 84 94 CALCIUM 9.4 9.4 9.4 PROT 6.0 6.3 6.0 ALB 4.2 4.3 4.0 TBILI 0.4 0.3 0.4 ALKPHOS 63 70 65 ALT 31 30 31 AST 19 22 19 ANIONGAP 11 12 13 BCR 7 16 17 OSMOLALITY 291 296 291 AGRATIO 2.3 2.2 2.0 EGFR 46* >60 >60 Recent Labs Component Name 06/28/19 1351 06/09/19 1341 05/24/19 1206 MAGNESIUM 1.7 1.9 2.0 Recent Labs Component Name 06/28/19 1351 06/09/19 1341 05/24/19 1206 PHOS 2.5 3.4 3.5 LDH Total Date Value Ref Range Status 05/24/2019 179 125 - 243 Units/L Final 03/22/2019 231 125 - 243 Units/L Final Most Recent Disease Specific Testing: CT C/A/P (06/09/19): The spleen is enlarged, measuring 17.9 cm craniocaudally. No acute process is abdomen or pelvis Bone Marrow Biopsy (06/09/19) Path: normocellular marrow with maturing trilineage hematopoiesis. Non- necrotizing granuloma formation. Decreased iron storage. No evidence of lymphoma Flow: NISHA Assessment & Plan B Cell Lymphoma-Relapsed -PET CT and BMBx as above -s/p 6 cycles R-CHOP (3 cycles with R), with early relapse. Now in cycle 3 Bendamustine/Gazyva -repeat disease evaluation after cycle 2 showed improvement in spleen size -will need to consider spleen size prior to mobilization, briefly discussed possibility of splenectomy but will follow this closely -start antiviral ppx Other System Review Arthritis -on diclofenac BID -arthritic pain worsened since stopping marijuana, using more [place] (3-4/day) Cardiac History -historical a. Fib,notes are unclear but seems to have been resolved for multiple years. This was along time ago, will need to follow pre-transplant Anxiety/Depression -mood altered more noticeable after stopping marijuana use -discussed high level stress with diagnosis, chemo, and transplant, educating him that it's common to need additional help to cope to get through these times -will start lexapro 10 mg daily and continue to follow Elevated Creatinine -Cr up to 1.6, had taken urine tox flush for drug screen, which had a lot of creatine in it, willrepeat in 2 weeks. Marijuana Drug Use -stopped 06/16/19 -repeat U. tox pending today Disposition/Recommendations: RN coordinator to schedule abd CT and BMBx in next 2 weeks (at [facility]), then will recommend if 3rd cycle should resume as scheduled. Tiffanie Nguyen, MISSY- [facility] and [facility] Transplant [facility] I independently interviewed and examined Marcello Guillen with the BMT advanced practice provider. I reviewed my findings and assessment with the advanced practice provider and the patient. I reviewed the below note. Please see note for full detail. Aurelio is in the midst of C3 of bendamustine/Gazyva Mid cycle 2 assessment showed spleen improvement and clearance of marrow disease Though spleen remains tender, we are optimistic that further treatment will result in spleen response I spoke to Dr. Tavares last week We hope to terminate therapy after this cycle, give spleen response time to plateau and formally reassess spleen response with imaging in about a month That additional time will allow marrow recovery to ensure successful stem cell collection Aurelio and his sister note more anxiety with marijuana abstinence He is open to trying Lexapro which we will prescribe Labs are notable for Cr 1.6 Aurelio did mention taking a flush to cleanse his body of drugs just prior to visit today He notes that creatine was one of the contents Madan sees Dr. Tavares on 07/06/19 and we will ask his time to check a f/u BMP to ensure Cr has normalized We will arrange spleen imaging for late Jul/early August and plan organ function/transplant mob accordingly Hillary Apple MD MSc nuclear waste process operator Interim Director, Division of Hematology/Oncology [facility] documented in this encounter Plan of Treatment Upcoming Encounters Date Type Department Care Team (Late st Contact Info) Description 08/26/2024 11:00 AM [employer] Office Visit [facility] - Pulmonology [address] [address], [place] [id number] Andrew Francis MD [address] [place] [address] 2L DIV OF PULMONARY/[place] [address] documented as of this encounter Procedures Procedure Name Priority Date/Time Associated Diagnosis Comments URINE DRUG SCREEN IMMUNOASSAY Routine 06/28/2019 2:54 PM [employer] B-cell lymphoma, unspecified B-cell lymphoma type, unspecified body region (HCC) CBC W AUTO DIFFERENTIAL STAT 06/28/2019 1:51 PM [employer] Diffuse large B-cell lymphoma, unspecified body region (HCC) COMPREHENSIVE METABOLIC PANEL STAT 06/28/2019 1:51 PM [employer] Diffuse large B-cell lymphoma, unspecified body region (HCC) PHOSPHORUS BLOOD STAT 06/28/2019 1:51 PM [employer] Diffuse large B-cell lymphoma, unspecified body region (HCC) MAGNESIUM BLOOD STAT 06/28/2019 1:51 PM [facility] Diffuse large B-cell lymphoma, unspecified body region (HCC) documented in this encounter Results * (ABNORMAL) DRUG SCREEN TOX URINE PANEL (06/28/2019 2:54 PM [facility]) Amphetamines Screen Urine Negative Negative : < 1000 ng/mL 06/28/2019 3:31 PM [facility] Barbiturates Screen Urine Negative Negative : < 200 ng/mL 06/28/2019 3:31 PM [facility] Benzodiazepine Screen Urine Negative Negative : < 200 ng/mL 06/28/2019 3:31 PM [facility] Opiates Urine Positive(A) Negative : < 300 ng/mL 06/28/2019 3:31 PM [facility] Comment: Positive urine opiate screening results should be confirmed by another generally accepted non-immunological method such as gas chromatography or mass spectrometry. ? Cocaine Metabolites Urine Negative Negative : < 300 ng/mL 06/28/2019 3:31 PM [facility] Phencyclidine Screen Urine Negative Negative : < 25 ng/ml 06/28/2019 3:31 PM [facility] Cannabinoids Screen Urine Positive(A) Negative : <50 ng/mL 06/28/2019 3:31 PM [facility] Comment: Positive urine cannabinoids (THC) screening results should be confirmed by another generally accepted non-immunological method such as gas chromatography or mass spectrometry. ? Methadone Screen Urine Negative Negative : < 300 ng/mL 06/28/2019 3:31 PM [facility] Fentanyl Screen Urine Negative Negative : <1.0 ng/mL 06/28/2019 3:31 PM [facility] Urine URINE / Unknown Collection / Unknown 06/28/2019 2:54 PM [facility] 06/28/2019 3:04 PM [employer] Narrative [facility] - 06/28/2019 3:31 PM FR[employer] P[employer]ER F[employer] AND FILL The Urine Toxicology Screening Panel does not screen for Propoxyphene, Meprobamate, Carisoprodol, Trazodone, [id number] medications and/or volatiles (Acetone, Isopropanol, Methanol or Ethylene Glycol). Ethanol, Salicylate, Acetaminophen, Tricyclic Antidepressants and several therapeutic drugs may be individually assayed in serum or plasma specimen. Toxicology testing by the [facility] is an aid to medical diagnosis and treatment of patients. No documented chain of custody was maintained. Results are intended to be used for clinical purposes only. ? Tiffanie Nguyen INSEAM TRIMMER-BANK ANALYST LAB - URINE LINDA MIRIAN ORDERABLES Performing Organization Address [facility] Co de Phone Number [address] [phone] * PHOSPHORUS BLOOD (06/28/2019 1:51 PM [facility] [facility]) Phosphorus 2.5 2.3 - 4.7 mg/dL 06/28/2019 2:27 PM [employer] Blood BLOOD SPECIMEN / Unknown Venipuncture / Unknown 06/28/2019 1:51 PM [employer] 06/28/2019 1:54 PM [employer] Tiffanie Nguyen INSEAM TRIMMER-BANK ANALYST LAB - CHEMISTRY ORDERABLES Performing Organization Address [facility] Co de Phone Number [address] [phone] * MAGNESIUM BLOOD (06/28/2019 1:51 PM [employer]) Pathologist [facility] Magnesium 1.7 1.6 - 2.6 mg/dL 06/28/2019 2:27 PM [facility] Blood BLOOD SPECIMEN / Unknown Venipuncture / Unknown 06/28/2019 1:51 PM [employer] 06/28/2019 1:54 PM [employer] Tiffanie Seymour Patrick INSEAM TRIMMER-BANK ANALYST LAB - CHEMISTRY ORDERABLES [facility] [address] [phone] * (ABNORMAL) CBC W AUTO DIFFERENTIAL (06/28/2019 1:51 PM [employer]) Pathologist [facility] WBC 3.5 3.5 - 10.5 10? 3 /uL 06/28/2019 2:02 PM [facility] RBC 4.56 4.30 - 5.70 10? 6 /uL 06/28/2019 2:02 PM [facility] Hemoglobin 12.6(L) 13.5 - 17.5 g/dL 06/28/2019 2:02 PM [facility] Hematocrit 36.6(L) 39.0 - 50.0 % 06/28/2019 2:02 PM [facility] MCV 80.3(L) 81.0 - 97.0 fL 06/28/2019 2:02 PM [facility] MCH 27.6(L) 28.0 - 34.0 pg 06/28/2019 2:02 PM [facility] MCHC 34.4 32.0 - 36.0 g/dL 06/28/2019 2:02 PM [facility] Platelet Count 37(L) 150 - 400 10? 3 /uL 06/28/2019 2:02 PM [facility] Comment:Checked by previous result RDW-SD 50.3(H) 36.0 - 50.0 fL 06/28/2019 2:02 PM [facility] RDW-CV 17.2(H) 11.2 - 14.8 % 06/28/2019 2:02 PM [facility] MPV 06/28/2019 2:02 PM [facility] Comment:Unable to calculate nRBC Absolute 0.00 0 10? 3 /uL 06/28/2019 2:02 PM [facility] nRBC Auto 0.0 0 /100 WBC 06/28/2019 2:02 PM [facility] Neutrophils % 75.7(H) 35.0 - 70.0 % 06/28/2019 2:02 PM [facility] Lymphocytes % 8.1(L) 19.7 - 55.1 % 06/28/2019 2:02 PM [facility] Monocytes % 9.5 3.0 - 15.0 % 06/28/2019 2:02 PM [facility] Eosinophils % 4.9 0.0 - 6.0 % 06/28/2019 2:02 PM [facility] Basophil % 1.2 0.0 - 1.5 % 06/28/2019 2:02 PM [facility] Neutrophils Absolute 2.6 1.6 - 7.0 10? 3 /uL 06/28/2019 2:02 PM [facility] Lymphocyte Absolute 0.3(L) 0.8 - 2.9 10? 3 /uL 06/28/2019 2:02 PM [facility] Monocytes Absolute 0.33 0.14 - 0.66 10? 3 /uL 06/28/2019 2:02 PM [facility] Eosinophils Absolute 0.17 0.00 - 0.45 10? 3 /uL 06/28/2019 2:02 PM [facility] Basophils Absolute 0.04 0.00 - 0.06 10? 3 /uL 06/28/2019 2:02 PM [facility] Immature Granulocytes % 0.6 0.0 - 1.0 % 06/28/2019 2:02 PM [facility] Blood BLOOD SPECIMEN / Unknown Venipuncture / Unknown 06/28/2019 1:51 PM [employer] 06/28/2019 1:54 PM [facility] Tiffanie Nguyen INSEAM TRIMMER-BANK ANALYST LAB - HEMATOLOG Y ORDERABLES [facility] [address] [phone] * (ABNORMAL) COMPREHENSIVE METABOLIC PANEL (06/28/2019 1:51 PM [facility]) BUN 11 7 - 26 mg/dL 06/28/2019 2:27 PM [facility] Creatinine 1.6(H) 0.6 - 1.2 mg/dL 06/28/2019 2:27 PM [facility] Sodium 141 136 - 145 mmol/L 06/28/2019 2:27 PM [facility] Potassium 4.1 3.5 - 4.5 mmol/L 06/28/2019 2:27 PM [facility] Chloride 109(H) 98 - 107 mmol/L 06/28/2019 2:27 PM [facility] CO2 25 22 - 29 mmol/L 06/28/2019 2:27 PM [facility] Glucose 97 70 - 115 mg/dL 06/28/2019 2:27 PM [facility] Calcium 9.4 8.4 - 10.2 mg/dL 06/28/2019 2:27 PM [facility] Protein Total 6.0 6.0 - 8.3 g/dL 06/28/2019 2:27 PM [facility] Albumin 4.2 3.4 - 5.0 g/dL 06/28/2019 2:27 PM [facility] Bilirubin Total 0.4 0.2 - 1.2 mg/dL 06/28/2019 2:27 PM [facility] Alkaline Phosphatase 63 40 - 150 Units/L 06/28/2019 2:27 PM [facility] ALT 31 0 - 55 Units/L 06/28/2019 2:27 PM [facility] AST 19 5 - 34 Units/L 06/28/2019 2:27 PM [facility] Anion Gap 11 8 - 18 06/28/2019 2:27 PM [facility] BUN/Creatinine Ratio 7 7 - 23 06/28/2019 2:27 PM [facility] Osmolality Calculated 291 270 - 300 mOsm/kg 06/28/2019 2:27 PM [facility] Albumin/Globulin Ratio 2.3 1.1 - 2.3 06/28/2019 2:27 PM [facility] eGFR 46(L) >60 mL/min/1.7 3 m2 06/28/2019 2:27 PM [employer] Blood BLOOD SPECIMEN / Unknown Venipuncture / Unknown 06/28/2019 1:51 PM [employer] 06/28/2019 1:54 PM [employer] Tiffanie Nguyen INSEAM TRIMMER-BANK ANALYST LAB - CHEMISTRY ORDERABLES [facility] [address] [phone] documented in this encounter Visit Diagnoses Diagnosis Diffuse large B-cell lymphoma, unspecified body region (HCC)- Primary B-cell lymphoma, unspecified B-cell lymphoma type, unspecified body region (HCC) Other specified abnormal findings of blood chemistry Anxiety Anxiety state, unspecified documented in this encounter Care Teams Earth Moving Technician Relationship Specialty Start Date End Date Ran Nuñez MD [address] [facility] [place] [address] PCP - General Family Medicine 03/22/19 12/22/20 Hillary Apple MD [address] [place] [address] Hematology and Oncology 03/17/19 Bill Ferrera MD [address] [place] [id number] Hematology and Oncology 03/17/19 08/27/21 Toyn Dumont MD [address] [place] [address] Hematology and Oncology 03/17/19 Shalini Segal MD [address] [place] [address] Hematology and Oncology 03/17/19 09/29/19 Karie Jones, ROSMEARY Registered Nurse 03/17/19 09/21/19 Maryjo Reinoso LCSW Instrument Assembly Supervisor 03/17/19 Madyson Clay, PharmD 03/17/19 Dana Lala, INSEAM TRIMMER-HEAVY EQUIPMENT OPERATOR/PAVER [address] [place] [address] Oncology 03/17/19 Mckinley Silver PA-C [address] [place] [address] Physician Account Installer 03/17/19 09/08/19 Tiffanie Nguyen, INSEAM TRIMMER-BANK ANALYST [address] [place] [address] Family Medicine 03/17/19 Stephanie Mahoney, RN Registered Nurse 03/17/19 10/29/21 Alycia Galvan, ROSEMARY 03/17/19 10/29/21 Cesar Tavares MD [address] [facility] [place] [address] Referring Physician Medical Oncology 03/23/19 Karie Jones, RN Registered Nurse 06/08/19 10/29/21 documented as of this encounter
--- OUTSIDE RECORDS SUMMARY | 2024-08-18 00:35 | XMS_ITS | Encounter Summary ---
Author Organization [facility] Address [address] [place] [address] Care Team Providers Care Senior Tax Manager Name Role Phone Hillary Apple MD Unavailable [phone] Bill Ferrera MD Unavailable [phone] Tony Dumont MD Unavailable [phone] Shalini Segal MD Unavailable [phone] Karie Jones RN Unavailable Unavailable Maryjo ReinosoW Unavailable Unavailable Madyson Clay PharmD Unavailable Unavaila Dana Galicia INSIDE HORTICULTURAL SPECIALTY GROWER-CROWN BLOCKER Unavailable [phone] Mckinley Silver PA-C Unavailable Unavail able Patrick, Tiffanie [place] INSIDE HORTICULTURAL SPECIALTY GROWER-SUPERVISOR CUSTOMER SERVICES Unavailable [phone] Stephanie Mahoney RN Unavailable Unavailable Alycia Galvan RN Unavailable UnavailRan Mejía MD Primary Care Provider Cesar Tavares MD Unavailable [phone] Karie Jones RN Unavailable Unavailable Encounter Details Date Type Department Care Team (Late st Contact Info) Description 08/09/2019 Orders Only [facility] [address] [place], [place] [id number] Chloe Kent MD [address]L [place] [address] Non-Hodgkin's lymphoma of spleen, unspecified non-Hodgkin lymphoma type (HCC) Social History Tobacco Use Types Packs/Day Years Used Date Smoking Tobacco: Never Assessed Sex and Gender Information Value Date Recorded Sex Assigned at Male 03/27/2022 11:34 AM CDT Gender Identity Male 03/27/2022 11:34 AM CDT Sexual Orientation Straight 03/27/2022 11 :34 AM CDT documented as of this encounter Plan of Treatment Upcoming Encounters Date Type Department Care Team (Late st Contact Info) Description 08/26/2024 11:00 AM REGULATOR ASSEMBLER Office Visit [facility] - Pulmonology [address] [place] [address], [place] [address] Andrew Francis MD [address] [place] [address] DIV OF PULMONARY/[place] [address] documented as of this encounter Visit Diagnoses Diagnosis Non-Hodgkin's lymphoma of spleen, unspecified non-Hodgkin lymphoma type (HCC)- Primary documented in this encounter Care Teams Senior Tax Manager Relationship Specialty Start Date End Date Ran Nuñez MD [address] [place] [phone] PCP - General Family Medicine 03/22/19 12/22/20 Hillary Apple MD [address] [place] [address] Hematology and Oncology 03/17/19 Bill Ferrera MD [facility] [place] [address] Hematology and Oncology 03/17/19 08/27/21 Tony Dumont MD [facility] [place] [address] Hematology and Oncology 03/17/19 Shalini Segal MD [address] [place] [address] Hematology and Oncology 03/17/19 09/29/19 Karie Jones, RN Registered Nurse 03/17/19 09/21/19 Maryjo Reinoso, SENIOR WINDOWS ENGINEER Concrete Bucket Loader 03/17/19 Madyson Clay, PharmD 03/17/19 Dana Lala INSIDE HORTICULTURAL SPECIALTY GROWER-CROWN BLOCKER [address] [facility] 2nd [place] [address] Oncology 03/17/19 Mckinley Silver PA-C [address] [place] [address] Physician Behavioral Analyst 03/17/19 09/08/19 Tiffanie Nguyen, INSIDE HORTICULTURAL SPECIALTY GROWER-SUPERVISOR CUSTOMER SERVICES [address] [place] [address] Family Medicine 03/17/19 Stephanie Mahoney, RN Registered Nurse 03/17/19 10/29/21 Alycia Galvan, ROSEMARY 03/17/19 10/29/21 Cesar Tavares MD [address] [place] [phone] Referring Physician Medical Oncology 03/23/19 Karie Jones, RN Registered Nurse 06/08/19 10/29/21 documented as of this encounter
--- OUTSIDE RECORDS SUMMARY | 2024-08-18 00:35 | XMS_ITS | Encounter Summary ---
Author Organization [facility] Address [address] [facility] [place] [address] Care Team Providers Care Work Station Support Specialist Name Role Phone Hillary Apple MD Unavailable [phone] Bill Ferrera MD Unavailable [phone] Tony Dumont MD Unavailable [phone] Shalini Segal MD Unavailable [phone] Karie Jones RN Unavailable Unavailable Maryjo ReinosoW Unavailable Unavailable Madyson Clay PharmD Unavailable Unavaila Dana Galicia PAGE TECHNICIAN-VP & GENERAL COUNSEL Unavailable [phone] Mckinley SilverC Unavailable Unavail able PatrickTiffanie APRN-BULLET MAKER Unavailable [phone] Stephanie Mahoney RN Unavailable Unavailable Alycia Galvan RN Unavailable UnavailRan Mejía MD Primary Care Provider Cesar Tavares MD Unavailable [phone] Karie Jones RN Unavailable Unavailable Encounter Details Date Type Department Care Team (Late st Contact Info) Description 06/29/2019 Orders Only [facility] [address] [place] [address] Patrick, Tiffanie [place] APRN-BULLET MAKER [address] [place] [address] Social History Tobacco Use Types Packs/Day Years [...] st Contact Info) Description 08/26/2024 11:00 AM ORNAMENTAL METAL WORKER APPRENTICE Office Visit [facility] Physician Group - Pulmonology [address] [place] [address], [place] [phone] Andrew Francis MD [address] [place] [address] 2L DIV OF PULMONARY/[place] [address] documented as of this encounter Visit Diagnoses Not on filedocumented in this encounter Care Teams Work Station Support Specialist Relationship Specialty Start Date End Date Ran Nuñez MD [address] [place] [address] PCP - General Family Medicine 03/22/19 12/22/20 Hillary Apple MD [facility]5 [place] [address] Hematology and Oncology 03/17/19 Bill Ferrera MD [facility] [place] [address] Hematology and Oncology 03/17/19 08/27/21 Tony Dumont MD [address] [place] [address] Hematology and Oncology 03/17/19 Shalini Segal MD [address] [place] [address] Hematology and Oncology 03/17/19 09/29/19 Karie Jones, ROSEMARY Registered Nurse 03/17/19 09/21/19 Maryjo Reinoso LCSW Principal Trainer 03/17/19 Madyson Clay, PharmD 03/17/19 Dana Lala, PAGE TECHNICIAN-VP & GENERAL COUNSEL [address] [place] [address] Oncology 03/17/19 Mckinley Silver PA-C [address] [address] Physician Cuprous Chloride Operator 03/17/19 09/08/19 Tiffanie Nguyen, PAGE TECHNICIAN-BULLET MAKER [address] [place] [address] Family Medicine 03/17/19 Stephanie Mahoney, RN Registered Nurse 03/17/19 10/29/21 Alycia Galvan, ROSEMARY 03/17/19 10/29/21 Cesar Tavares MD [address] [place] [address] Referring Physician Medical Oncology 03/23/19 Karie Jones, RN Registered Nurse 06/08/19 10/29/21 documented as of this encounter
--- OUTSIDE RECORDS SUMMARY | 2024-08-18 00:35 | XMS_ITS | Encounter Summary ---
Author Organization [facility] Address [address] [place] [address] Care Team Providers Care Plate Finisher Name Role Phone Hillary Apple MD Unavailable [phone] Bill Ferrera MD Unavailable [phone] Tony Dumont MD Unavailable [phone] Shalini Segal MD Unavailable [phone] Karie Jones RN Unavailable Unavailable Maryjo Reinoso LCSW Unavailable Unavailable Madyson Clay PharmD Unavailable Unavaila Dana Galicia NAVAL AIRCREWMAN OPERATOR-INTERVENTIONAL NURSE Unavailable [phone] Mckinley SilverC Unavailable Unavail able PatrickTiffanie hammer APRN-TECHNICAL INSPECTOR Unavailable [phone] Stephanie Mahoney RN Unavailable Unavailable Alycia Galvan RN Unavailable UnavailRan Mejía MD Primary Care Provider Cesar Tavares MD Unavailable [phone] Karie Jones RN Unavailable Unavailable Reason for Visit * Radiology Services (Routine) - Closed Specialty Diagnoses / Procedures Referred By Contjohn t Referred To Contact CT Scan Diagnoses Diffuse large B-cell lymphoma, unspecified body region (HCC) Procedures CT ABDOMEN PELVIS WO CONTRAST Patrick, Tiffanie [place] APRN-TECHNICAL INSPECTOR [address] [facility] [place] [address] [facility] [address] [place] [address] Referral ID Status Reason Start Date Expiration Date Visits Re quested Visits Authorized [id number] Closed 06/28/2019 12/25/2019 1 1 Encounter Details Date Type Department Care Team (Latest Contact Info) Description 07/26/2019 11:00 AM STITCHER TAPE CONTROLLED MACHINE - 07/26/2019 11:16 AM STITCHER TAPE CONTROLLED MACHINE Hospital Encounter [facility] CAT SCAN [address] [place] [phone] Tiffanie Nguyen, NAVAL AIRCREWMAN OPERATOR-TECHNICAL INSPECTOR [address] [place] [phone] Discharge Disposition: Home or Self Care Social [...] st Contact Info) Description 08/26/2024 11:00 AM STITCHER TAPE CONTROLLED MACHINE Office Visit [facility] Physician Group - Pulmonology [address] [facility], [place] [phone] Andrew Francis MD [address] [place] [address] 2L DIV OF PULMONARY/[place] [address] documented as of this encounter Procedures Procedure Name Priority Date/Time Associated Diagnosis Comments CT ABDOMEN PELVIS WO CONTRAST Routine 07/26/2019 1:29 PM STITCHER TAPE CONTROLLED MACHINE Diffuse large B-cell lymphoma, unspecified body region (HCC) documented in this encounter Results * CT ABDOMEN PELVIS WO CONTRAST (07/26/2019 1:29 PM STITCHER TAPE CONTROLLED MACHINE) Anatomical Region Laterality Modality Abdomen, Pelvis Computed Tomogra phy 07/26/2019 1:55 PM STITCHER TAPE CONTROLLED MACHINE Impressions 07/30/2019 11:04 AM STITCHER TAPE CONTROLLED MACHINE IMPRESSION: 1. The spleen is enlarged, measuring 15.8 cm craniocaudally, decreased from 06/09/2019. 2. No acute process identified in the abdomen or pelvis. No abdominal or pelvic lymphadenopathy. Dictated by Mary Ellen Ty MD (information services vice president). I, Dr. JIGNESH TAPIA M.D. have personally reviewed and interpreted this examination/study. This report was electronically signed by JIGNESH TAPIA M.D. ??on 07/30/2019 11:04 AM . Narrative 07/30/2019 11:04 AM STITCHER TAPE CONTROLLED MACHINE EXAMINATION: Computed tomography (CT) of the abdomen [...] 1 anterolisthesis at this level. Procedure Note Jignesh Tapia MD - 07/30/2019 EXAMINATION: Computed tomography (CT) [...] lymphadenopathy. Dictated by Mary Ellen Ty MD (information services vice president). I, Dr. JIGNESH TAPIA M.D. have personally reviewed and interpreted this examination/study. This report was electronically signed by JIGNESH TAPIA M.D. on 07/30/2019 11:04 AM . Tiffanie Nguyen NAVAL AIRCREWMAN OPERATOR-TECHNICAL INSPECTOR CT ORDERABLES documented in this encounter Visit Diagnoses Diagnosis Diffuse large B-cell lymphoma, unspecified body region (HCC) documented in this encounter Care Teams Plate Finisher Relationship Specialty Start Date End Date Ran Nuñez MD [address] [place] [phone] PCP - General Family Medicine 03/22/19 12/22/20 Hillary Apple MD [address] [place] [address] Hematology and Oncology 03/17/19 Bill Ferrera MD [address] [place] [address] Hematology and Oncology 03/17/19 08/27/21 Tony Dumont MD [address] [place] [address] Hematology and Oncology 03/17/19 Shalini Segal MD [address] [place] [address] Hematology and Oncology 03/17/19 09/29/19 Karie Jones, RN Registered Nurse 03/17/19 09/21/19 Maryjo Reinoso, PROGRAM COORDINATOR EXECUTIVE EDUCATION Transfer Engineer 03/17/19 Madyson Clay, PharmD 03/17/19 Dana Lala, NAVAL AIRCREWMAN OPERATOR-INTERVENTIONAL NURSE [address] [place] [address] 2nd [place] [address] Oncology 03/17/19 Mckinley Silver PA-C [address] [place] [address] 2nd [place] [address] Physician Radial Drill Press Operator 03/17/19 09/08/19 Tiffanie Nguyen, NAVAL AIRCREWMAN OPERATOR-TECHNICAL INSPECTOR [address] [place] [address] 2nd [place] [address] Family Medicine 03/17/19 Stephanie Mahoney, RN Registered Nurse 03/17/19 10/29/21 Alycia Galvan, ROSEMARY 03/17/19 10/29/21 Cesar Tavares MD [address] [place] [address] [place] [address] Referring Physician Medical Oncology 03/23/19 Karie Jones, RN Registered Nurse 06/08/19 10/29/21 documented as of this encounter
--- OUTSIDE RECORDS SUMMARY | 2024-08-18 00:35 | XMS_ITS | Encounter Summary ---
Author Organization [facility] Address [address] [place] [address] Care Team Providers Care Automotive Parts Counterperson Name Role Phone Hillary Apple MD Unavailable [phone] Bill Ferrera MD Unavailable [phone] Tony Dumont MD Unavailable [phone] Shalini Segal MD Unavailable [phone] Karie Jones RN Unavailable Unavailable Maryjo Reinoso LCSW Unavailable Unavailable Madyson Clay PharmD Unavailable Unavaila Dana Galicia TRAFFIC OBSERVER-MICROPALEONTOLOGIST Unavailable [phone] Mckinley SilverC Unavailable Unavail able PatrickTiffanie hammer APRN-MINUTE CLERK Unavailable [phone] Stephanie Mahoney RN Unavailable Unavailable Alycia Galvan RN Unavailable UnavailRan Mejía MD Primary Care Provider Cesar Tavares MD Unavailable [phone] Karie Jones RN Unavailable Unavailable Reason for Referral * Radiology Services (Routine) - Closed Specialty Diagnoses / Procedures Referred By Contjohn t Referred To Contact CT Scan Diagnoses Diffuse large B-cell lymphoma, unspecified body region (HCC) Procedures CT ABDOMEN PELVIS WO CONTRAST Patrick, Tiffanie [place] APRN-MINUTE CLERK [address] [facility] [place] [address] [facility] [address] [place] [address] Referral ID Status Reason Start Date Expiration Date Visits Re quested Visits Authorized [id number] Closed 06/28/2019 12/25/2019 1 1 LE STICKER Encounter Details Date Type Department Care Team (Late st Contact Info) Description 06/28/2019 Orders Only [facility] CL[facility] [address] [place] [address] Tiffanie Nguyen APRN-CNP [address] [place] [address] Diffuse large B-cell lymphoma, unspecified body region [...] st Contact Info) Description 08/26/2024 11:00 AM CATTLE STICKER Office Visit [facility] Physician Group - Pulmonology [address] [place] [address], [place] [phone] Andrew Francis MD [address] [place] [address] 2L DIV OF PULMONARY/[place] [address] documented as of this encounter Results * CT ABDOMEN PELVIS WO CONTRAST (07/26/2019 1:29 PM CATTLE STICKER) Anatomical Region Laterality Modality Abdomen, Pelvis Computed Tomogra phy 07/26/2019 1:55 PM CATTLE STICKER Impressions 07/30/2019 11:04 AM CATTLE STICKER IMPRESSION: 1. The spleen is enlarged, measuring 15.8 cm craniocaudally, decreased from 06/09/2019. 2. No acute process identified in the abdomen or pelvis. No abdominal or pelvic lymphadenopathy. Dictated by Mary Ellen Ty MD (front loader residential driver). I, Dr. JIGNESH TAPIA M.D. have personally reviewed and interpreted this examination/study. This report was electronically signed by JIGNESH TAPIA M.D. ??on 07/30/2019 11:04 AM . Narrative 07/30/2019 11:04 AM CATTLE STICKER EXAMINATION: Computed tomography (CT) of the abdomen [...] lymphadenopathy. Dictated by Mary Ellen Ty MD (front loader residential driver). I, Dr. JIGNESH TAPIA M.D. have personally reviewed and interpreted this examination/study. This report was electronically signed by JIGNESH TAPIA M.D. on 07/30/2019 11:04 AM . Tiffanie Nguyen TRAFFIC OBSERVER-MINUTE CLERK CT ORDERABLES documented in this encounter Visit Diagnoses Diagnosis Diffuse large B-cell lymphoma, unspecified body region (HCC)- Primary Diffuse large B-cell lymphoma, unspecified body region (HCC) documented in this encounter Care Teams Automotive Parts Counterperson Relationship Specialty Start Date End Date Ran Nuñez MD [address] [place] [address] PCP - General Family Medicine 03/22/19 12/22/20 Hillary Apple MD [address] [place] [address] Hematology and Oncology 03/17/19 Bill Ferrera MD [address] [place] [address] Hematology and Oncology 03/17/19 08/27/21 Tony Dumont MD [address] [place] [address] Hematology and Oncology 03/17/19 Shalini Segal MD [address] [place] [address] Hematology and Oncology 03/17/19 09/29/19 Karie Jones, RN Registered Nurse 03/17/19 09/21/19 Maryjo Reinoso, AUTOMATION OPERATOR Boiler Cleaner 03/17/19 Madyson Clay, PharmD 03/17/19 Dana Lala TRAFFIC OBSERVER-MICROPALEONTOLOGIST [address] [place] [address] [place] [address] Oncology 03/17/19 Mckinley Silver PA-C [address] [place] [address] [place] [address] Physician Music Grapher 03/17/19 09/08/19 Tiffanie Nguyen, TRAFFIC OBSERVER-MINUTE CLERK [address] [place] [address] [place] [address] Family Medicine 03/17/19 Stephanie Mahoney, RN Registered Nurse 03/17/19 10/29/21 Alycia Galvan, ROSEMARY 03/17/19 10/29/21 Cesar Tavares MD [address] [place] [address] Referring Physician Medical Oncology 03/23/19 Karie Jones, RN Registered Nurse 06/08/19 10/29/21 documented as of this encounter
--- OUTSIDE RECORDS SUMMARY | 2024-08-18 00:35 | XMS_ITS | Encounter Summary ---
Author Organization [facility] Address [address] [facility] [place] [address] Care Team Providers Care Crane Hooker Name Role Phone Hillary Apple MD Unavailable [phone] Bill Ferrera MD Unavailable [phone] Tony Dumont MD Unavailable [phone] Shalini Sgeal MD Unavailable [phone] Karie Jones RN Unavailable Unavailable Maryjo Reinoso LCSW Unavailable Unavailable Madyson Clay PharmD Unavailable Unavaila Dana Galicia FRONT DESK OFFICER-PRINT LINE SUPERVISOR Unavailable [phone] Mckinley Silver PA-C Unavailable Unavail able PatrickTiffanie APRN-DYE MACHINE OPERATOR Unavailable [phone] Stephanie Mahoney RN Unavailable Unavailable Alycia Galvan RN Unavailable UnavailRan Mejía MD Primary Care Provider Cesar Tavares MD Unavailable [phone] Karie Jones RN Unavailable Unavailable Joy Bob Unavailable Fanta Addison Weinstein PharmD Unavailable Unavailab le Reason for Visit * Reason Comments Refill Request Encounter Details Date Type Department Care Team (Late st Contact Info) Description 07/26/2019 Refill [facility] [address] [place] [address] Patrick, Tiffanie [place] APRN-DYE MACHINE OPERATOR [address] [place] [address] Refill Request Social History Tobacco Use Types [...] st Contact Info) Description 08/26/2024 11:00 AM DYNAMICS AX TECHNICAL ARCHITECT Office Visit [facility] Physician Group - Pulmonology [address] [place] [address], [place] [phone] Andrew Francis MD [address] [place] [address] 2L DIV OF PULMONARY/[place] [address] documented as of this encounter Visit Diagnoses Not on filedocumented in this encounter Care Teams Crane Hooker Relationship Specialty Start Date End Date Ran Nuñez MD [address] [place] [address] PCP - General Family Medicine 03/22/19 12/22/20 Hillary Apple MD [address] [place] [address] Hematology and Oncology 03/17/19 Bill Ferrera MD [address] [place] [address] Hematology and Oncology 03/17/19 08/27/21 Tony Dumont MD [address] [place] [address] Hematology and Oncology 03/17/19 Shalini Segal MD [address] [place] [address] Hematology and Oncology 03/17/19 09/29/19 Karie Jones, RN Registered Nurse 03/17/19 09/21/19 Maryjo Reinoso, REYNA Cloud Systems Administrator 03/17/19 Madyson Clay, PharmD 03/17/19 Dana Lala FRONT DESK OFFICER-PRINT LINE SUPERVISOR [address] [place] [place] [address] Oncology 03/17/19 Mckinley Silver PA-C [address] [place] [address] Physician Python Web Developer 03/17/19 09/08/19 Tiffanie Nguyen, JOSE DAVID-DYE MACHINE OPERATOR [address] [facility] 2nd [place] [address] Family Medicine 03/17/19 Stephanie Mahoney, RN Registered Nurse 03/17/19 10/29/21 Alycia Galvan, ROSEMARY 03/17/19 10/29/21 Cesar Tavares MD [address] [place] [address] Referring Physician Medical Oncology 03/23/19 Karie Jones, RN Registered Nurse 06/08/19 10/29/21 Joy Bob 09/22/19 Addison Shea, PharmD Pharmacist 09/22/19 10/29/21 documented as of this encounter
--- OUTSIDE RECORDS SUMMARY | 2024-08-18 00:35 | XMS_ITS | Encounter Summary ---
Author Organization [facility] Address [address] [facility] [place] [address] Care Team Providers Care Experimental Mechanic Electrical Name Role Phone Hillary Apple MD Unavailable [phone] Bill Ferrera MD Unavailable [phone] Tony Dumont MD Unavailable [phone] Shalini Segal MD Unavailable [phone] Karie Jones RN Unavailable Unavailable Maryjo Reinoso LCSW Unavailable Unavailable Madyson Clay PharmD Unavailable Unavaila Dana Galicia HEALTH COACH-CITY PLANT SUPERVISOR Unavailable [phone] Mckinley SilverC Unavailable Unavail able PatrickTiffanie APRN-WARDROBE SPECIALIST Unavailable [phone] Stephanie Mahoney RN Unavailable Unavailable Alycia Galvan RN Unavailable UnavailRan Mejía MD Primary Care Provider Cesar Tavares MD Unavailable [phone] Karie Jones RN Unavailable Unavailable Reason for Visit * Radiology Services (Routine) - Closed Specialty Diagnoses / Procedures Referred By Deng t Referred To Contact Positron Emission Tomography Diagnoses Pre-transplant evaluation for stem cell transplant Procedures PET CT WHOLE BODY Patrick, Tiffanie Seymour APRN-WARDROBE SPECIALIST [address] [place] [address] [facility] Pet Op [address] [place] [address] Referral ID Status Reason Start Date Expiration Date Visits Re quested Visits Authorized [id number] Closed 06/28/2019 12/25/2019 1 1 Encounter Details Date Type Department Care Team (Latest Contact Info) Description 08/11/2019 8:38 AM HAIR SPRING CUTTER - 08/11/2019 10:16 AM HAIR SPRING CUTTER Hospital Encounter SL PET [address] [place] [address] Tiffanie Nguyen, HEALTH COACH-WARDROBE SPECIALIST [address] [place] [address] Discharge Disposition: Home or Self Care Social [...] st Contact Info) Description 08/26/2024 11:00 AM HAIR SPRING CUTTER Office Visit [facility] - Pulmonology [address] [place] [address], [place] [address] Andrew Francis MD [address] [place] [address] OF PULMONARY/[place] [address] documented as of this encounter Procedures Procedure Name Priority Date/Time Associated Diagnosis Comments PET CT WHOLE BODY Routine 08/11/2019 10: 29 AM HAIR SPRING CUTTER Pre-transplant evaluation for stem cell transplant GLUCOSE SCREEN - POCT (IP) [facility] STAT 08/11/2019 8:44 AM HAIR SPRING CUTTER documented in this encounter Results * GLUCOSE SCREEN - POCT (IP) [facility] (08/11/2019 8:44 AM HAIR SPRING CUTTER) Glucose WB/POC 105 70 - 115 mg/dL [facility] POCT TESTING Blood BLOOD SPECIMEN / Unknown 08/11/2019 8:44 AM HAIR SPRING CUTTER Tiffanie Nguyen HEALTH COACH-WARDROBE SPECIALIST LAB - POINT OF CARE ORDERABLES [facility] POCT TESTING [address] [phone] documented in this encounter Visit Diagnoses Not on filedocumented in this encounter Administered Medications Inactive Administered Medications - up to 3 most recent administrations Medication Order MAR Action Action Date Dose Rate Site F-18 fludeoxyglucose (FDG) injection SOLN 10.57 millicurie 10.57 millicurie, Intravenous, ONCE, 1 dose, On Fri08/11/19 at 0845 $ Given 08/11/2019 8:45 AM HAIR SPRING CUTTER 10.57 millicuries documented in this encounter Care Teams Experimental Mechanic Electrical Relationship Specialty Start Date End Date Ran Nuñez MD [address] [place] [address] PCP - General Family Medicine 03/22/19 12/22/20 Hillary Apple MD [address] [place] [address] Hematology and Oncology 03/17/19 Bill Ferrera MD [address] [place] [address] Hematology and Oncology 03/17/19 08/27/21 Tony Dumont MD [address] [place] [address] Hematology and Oncology 03/17/19 Shalini Segal MD [address] [place] [address] Hematology and Oncology 03/17/19 09/29/19 Karie Jones, ROSEMARY Registered Nurse 03/17/19 09/21/19 Maryjo Reinoso LCSW Repair Coil Winder 03/17/19 Madyson Clay, PharmD 03/17/19 Dana Lala, HEALTH COACH-CITY PLANT SUPERVISOR [address] [place] [address] Oncology 03/17/19 Mckinley Silver PA-C [address] [address] Physician Rehab Office Coordinator 03/17/19 09/08/19 Tiffanie Nguyen, HEALTH COACH-WARDROBE SPECIALIST [address] [address] Family Medicine 03/17/19 Stephanie Mahoney, RN Registered Nurse 03/17/19 10/29/21 Alycia Galvan, ROSEMARY 03/17/19 10/29/21 Cesar Tavares MD [address] [place] [id number] Referring Physician Medical Oncology 03/23/19 Karie Jones, RN Registered Nurse 06/08/19 10/29/21 documented as of this encounter
--- OUTSIDE RECORDS SUMMARY | 2024-08-18 00:35 | XMS_ITS | Encounter Summary ---
Author Organization [facility] Address [address] [facility] [place] [address] Care Team Providers Care Spinner Tender Name Role Phone Hillary Apple MD Unavailable [phone] Bill Ferrera MD Unavailable [phone] Tony Dumont MD Unavailable [phone] Shalini Segal MD Unavailable [phone] Karie Jones RN Unavailable Unavailable Maryjo Reinoso LCSW Unavailable Unavailable Madyson Clay PharmD Unavailable Unavaila Dana Galicia STONE GRADER-SENIOR INVESTMENT MANAGER Unavailable [phone] Mckinley SilverC Unavailable Unavail able PatrickTiffanie APRN-RETAIL BEAUTY SPECIALIST Unavailable [phone] Stephanie Mahoney RN Unavailable Unavailable Alycia Galvan RN Unavailable UnavailRan Mejía MD Primary Care Provider Cesar Tavares MD Unavailable [phone] Karie Jones RN Unavailable Unavailable Reason for Referral * Radiology Services (Routine) - Closed Specialty Diagnoses / Procedures Referred By Deng t Referred To Contact Positron Emission Tomography Diagnoses Pre-transplant evaluation for stem cell transplant Procedures PET CT WHOLE BODY Patrick, Tiffanie Seymour APRN-RETAIL BEAUTY SPECIALIST [address] [place] [address] [facility] Pet Op [address] [place] [address] Referral ID Status Reason Start Date Expiration Date Visits Re quested Visits Authorized [id number] Closed 06/28/2019 12/25/2019 1 1 ADVISER Reason for Visit * Radiology Services (Routine) - Closed Specialty Diagnoses / Procedures Referred By Contac t Referred To Contact Positron Emission Tomography Diagnoses Pre-transplant evaluation for stem cell transplant Procedures PET CT WHOLE BODY Tiffanie Mcpherson APRN-CNP [address] [place] [address] [facility] Pet Op [address] [place] [address] Referral ID Status Reason Start Date Expiration Date Visits Re quested Visits Authorized [id number] Closed 06/28/2019 12/25/2019 1 1 Encounter Details Date Type Department Care Team (Latest Contact Info) Description 08/11/2019 8:30 AM LOAN ADVISER - 08/11/2019 8:37 AM LOAN ADVISER Hospital Encounter [facility] PET [address] [place] [address] Tiffanie Mcpherson APRN-CNP [address] [place] [address] Discharge Disposition: Home or Self [...] st Contact Info) Description 08/26/2024 11:00 AM LOAN ADVISER Office Visit [facility] - Pulmonology [address] [facility], [place] [address] Andrew Francis MD [address] [place] [address] DIV OF PULMONARY/[place] [address] documented as of this encounter Procedures Procedure Name Priority Date/Time Associated Diagnosis Comments PET CT WHOLE BODY Routine 08/11/2019 10: 29 AM LOAN ADVISER Pre-transplant evaluation for stem cell transplant documented in this encounter Results * PET CT WHOLE BODY (08/11/2019 10:29 AM LOAN ADVISER) Anatomical Region Laterality Modality Positron Emissio n Tomography (PET) 08/11/2019 10:2 9 AM LOAN ADVISER Impressions 08/12/2019 4:41 PM LOAN ADVISER IMPRESSION: 1. No evidence of recurrent or residual disease ([place] 1). This report was approved ??by Tacos Rainey M.D. ?? on 08/11/2019 11:15 AM . I, Dr. ANURADHA RHODES M.D. have personally reviewed and interpreted this examination/study. This report was electronically signed by ANURADHA RHODES M.D. ??on 08/12/2019 4:41 PM . Narrative 08/12/2019 4:41 PM LOAN ADVISER PROCEDURE: PET/CT Study REFERRING PHYSICIAN: TIFFANIE MCPHERSON [...] is made to a PET/CT performed at [facility] on March 15, 2019. For reference, SUV [...] is made to a PET/CT performed at [facility] on March 15, 2019. For reference, SUV [...] Tacos Rainey M.D. on 08/11/2019 11:15 AM. IDr. ANURADHA M.D. have personally reviewed and interpreted this examination/study. This report was electronically signed by ANURADHA RHODES M.D. on 08/12/2019 4:41 PM . Lara Patrick STONE GRADER-RETAIL BEAUTY SPECIALIST [place] ORDERABLES documented in this encounter Visit Diagnoses Diagnosis Pre-transplant evaluation for stem cell transplant documented in this encounter Care Teams Spinner Tender Relationship Specialty Start Date End Date Ran Nuñez MD [address] [place] [address] PCP - General Family Medicine 03/22/19 12/22/20 Hillary Apple MD [address] [place] [address] Hematology and Oncology 03/17/19 Bill Ferrera MD [address] [place] [address] Hematology and Oncology 03/17/19 08/27/21 Tony Dumont MD [address] [place] [address] Hematology and Oncology 03/17/19 Shalini Segal MD [address] [place] [address] Hematology and Oncology 03/17/19 09/29/19 Karie Jones, RN Registered Nurse 03/17/19 09/21/19 Maryjo Reinoso LCSW Chief Lock Tender Operator 03/17/19 Madyson Clay, PharmD 03/17/19 Dana Lala STONE GRADER-SENIOR INVESTMENT MANAGER [address] [place] [address] [address]nd FLOOR [place] [id number] Oncology 03/17/19 Mckinley Silver PA-C [address] [place] [address] [address] [place] [address] Physician Adjunct Communications Faculty Member 03/17/19 09/08/19 Tiffanie Mcpherson, STONE GRADER-RETAIL BEAUTY SPECIALIST [address] [place] [address] [address] [place] [address] Family Medicine 03/17/19 Stephanie Mahoney, RN Registered Nurse 03/17/19 10/29/21 Alycia Galvan, ROSEMARY 03/17/19 10/29/21 Cesar Tavares MD [address] [place] [address] [place] [address] Referring Physician Medical Oncology 03/23/19 Karie Jones, RN Registered Nurse 06/08/19 10/29/21 documented as of this encounter
--- OUTSIDE RECORDS SUMMARY | 2024-08-18 00:35 | XMS_ITS | Encounter Summary ---
Author Organization [facility] Address [address] [place] [address] Care Team Providers Care Director And Professor Name Role Phone Hillary Apple MD Unavailable [phone] Bill Ferrera MD Unavailable [phone] Tony Dumont MD Unavailable [phone] Shalini Segal MD Unavailable [phone] Karie Jones RN Unavailable Unavailable Maryjo Reinoso LCSW Unavailable Unavailable Madyson Clay PharmD Unavailable Unavaila Dana Galicia DIRECTOR OF INFECTION CONTROL-MACHINE RIVETER Unavailable [phone] Mckinley SilverC Unavailable Unavail able PatrickTiffanie hammer APRN-FERRY ENGINEER Unavailable [phone] Stephanie Mahoney RN Unavailable Unavailable Alycia Galvan RN Unavailable UnavailRan Mejía MD Primary Care Provider Cesar Tavares MD Unavailable [phone] Karie Jones RN Unavailable Unavailable Encounter Details Date Type Department Care Team (Latest Contact Info) Description 07/26/2019 11:17 AM RAIL CAR PAINTER/SANDBLASTER - 07/26/2019 11:59 PM RAIL CAR PAINTER/SANDBLASTER Hospital Encounter [facility] [address] [place] [address] Patrick, Tiffanie Seymour APRN-FERRY ENGINEER [address] [place] [id number] Discharge Disposition: Home or Self Care Social [...] Sign Reading Time Taken Comments Blood Pressure 130/86 07/26/2019 11:50 AM RAIL CAR PAINTER/SANDBLASTER Pulse 87 07/26/2019 11:50 AM RAIL CAR PAINTER/SANDBLASTER Temperature 36.5 ??C (97.7 ??F) 07/26/2019 11:[address] Respiratory Rate 18 07/26/2019 11:50 AM RAIL CAR PAINTER/SANDBLASTER Oxygen Saturation 99% 07/26/2019 11:50 AM RAIL CAR PAINTER/SANDBLASTER Inhaled Oxygen Concentration - - Weight 122 kg (269 lb 0.7 oz) 07/26/2019 11:50 A M RAIL CAR PAINTER/SANDBLASTER Height - - Body Mass Index 42.14 06/09/2019 1:07 PM RAIL CAR PAINTER/SANDBLASTER documented in this encounter Discharge Instructions * Patient Instructions* Alycia Galvan RN - 07/26/2019 12:50 PM RAIL CAR PAINTER/SANDBLASTER Images from the original note were not included. Patient Education Prevent Infections SPORTS FITNESS AND WELLNESS DIRECTOR: An infection is an illness that is caused by germs, such as bacteria or a virus. Infections can spread from one person to another through direct contact or the air. You can be infected when you touchthings that are used by people with infections. These things can include doorknobs, used tissues, and sometimes dirty laundry. Germs can spread through the air when someone coughs or sneezes. Prevent the spread of infection: ?? Wash your hands. This is the most important thing you can do to prevent infection. Wash your hands several times each day. Encourage everyone in your house to wash their hands with soap and water after they use the bathroom. Everyone should also wash their hands after they change a child's diaper and before they prepare or eat food. ? After you wash your hands, gently rub them dry with a clean towel or paper towel. Hold a paper towel in your hand while you turn off the water tap. When you leave the bathroom, hold a paper towel in your hand as you touch the door handle. ? Use an alcohol-based hand rub if there is no water. Carry it with you when you leave the house. Before using a hand rub, wipe dirt off of your hands as much as you can. Your hands should be dry before hand rub is used. Rub your hands together until all of the hand rub liquid has dried up. ?? Cover your mouth and nose with a tissue when you cough or sneeze. Throw the tissue away and washyour hands. If you do not have a tissue, sneeze and cough into the bend of your elbow. ?? Use a disinfectant acid cleaner. If you do not have a disinfectant acid cleaner, create a cleaning solution by mixing 1 part bleach to 10 parts water. ?? Keep surfaces clean. Surfaces include the toilet, the area around the toilet, the sink, the areaaround the sink, and faucets. The toilet should be cleaned after each use if you have infectious diarrhea. If someone in your home has an infection, items that you use often should be cleaned daily. These items include phones, doorknobs, and remote controls. Clean the shower or bathtub after each use. ?? Wash dishes and silverware in a hosiery mater or in hot water. Do not use unwashed dishes or silverware. ?? Do not share personal items. Do not use toothbrushes, towels, or washcloths that have been used by others. ?? Get vaccinated. Flu and pneumonia vaccines can help prevent infection. Ask your healthcare provider for more information about getting vaccinated. ?? Copyright [employer] 2019 Information is for End User's use only and may not be sold, redistributed or otherwise used for commercial purposes. All illustrations and images included in CareNotes?? are the copyrighted property of [employer], [employer]. or [employer] The above information is an resident care aid only. It is not intended as medical advice for individual conditions or treatments. Talk to your doctor, nurse or pharmacist before following any medical regimen to see if it is safe and effective for you. 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 He is now s/p 3rd cycle bendamustine/gazyva. Oncologic Treatment History: 04/30/17: Cycle 1 CHOP (Rituxan d/c'd due to severe anaphylactic reaction) 05/20: Cycle 2 CHOP 06/13/17: Cycle 3 CHOP 07/03/17: Cycle 4 R-CHOP (tolerated rituxan well) 07/25/17: Cycle 5 R-CHOP 08/21: Cycle 6 R-CHOP 04/20/19: Cycle 1 Bendamustine/Gazyva 05/18/19: Cycle 2 Bendamustine/Gazyva 06/16/19: Cycle 3 Bendamustine/gazyva Interval History: Aurelio presents to clinic ambulatory Overall feeling well, frustrated that he can't get in to get his teeth pulled. Taking dental note today for permission to remove teeth Abdominal discomfort with eating meal, no tenderness noted at rest Review of Systems A comprehensive 12 point [...] 1 tablet by mouth once daily ??? HYDROcodone-acetaminophen (NORCO) 5-325 MG tablet [...] injection 500 Units Allergies: NKA Vitals Vitals: 07/26/19 1150 BP: 130/86 Pulse: 87 Resp: 18 Temp: 97.7 ??F SpO2: 99% Weight: 122 kg (269 lb 0.7 oz) Wt Readings from Last 3 Encounters: 07/26/19 122 kg (269 lb 0.7 oz) 06/28/19 118.4 kg (261 lb 1.6 oz) 06/09/19 120.2 kg (264 lb 14.4 oz) Physical Exam Karnofsky/ECO/0 General appearance - alert, well appearing, and in no distress Mental status - alert, oriented to person, place, and time Abdomen - nontender to palpation, slightly distended, no masses or organomegaly Extremities - peripheral pulses normal, no pedal edema, no clubbing or cyanosis Skin - normal coloration and turgor, no rashes, no suspicious skin lesions noted Labs Recent Labs Component Name 07/26/19 1248 06/28/19 1351 06/09/19 1341 03/22/19 1500 WBC 3.0* 3.5 2.7* - 3.0* RBC 4.46 4.56 4.55 - 4.46 HGB 13.0* 12.6* 12.2* - 11.6* HCT 37.1* 36.6* 36.5* - 35.6* MCV 83.2 80.3* 80.2* - 79.8* MCH 29.1 27.6* 26.8* - 26.0* MCHC 35.0 34.4 33.4 - 32.6 PLTCOUNT 59* 37* 40* - 59* RDWSD 44.8 50.3* 53.7* - 39.7 RDW 14.9* 17.2* 18.5* - 13.8 MPV 9.6 - - - 10.2 NRBCABS 0.00 0.00 0.00 - 0.00 NRBCAUTOPCT 0.0 0.0 0.0 - 0.0 NEUTPCT 69.0 75.7* 67.2 - 50.7 LYMPHSPCT 13.7* 8.1* 16.6* - 36.5 MONOPCT 10.7 9.5 10.3 - 6.4 EOSPCT 5.0 4.9 4.4 - 5.1 BASOPCT 1.3 1.2 1.1 - 1.0 IMMGRANSPCT 0.3 0.6 0.4 - 0.3 NEUTABS 2.1 2.6 1.8 - 1.5* LYMPHS 0.4* 0.3* 0.5* - 1.1 MONO 0.32 0.33 0.28 - 0.19 EOS 0.15 0.17 0.12 - 0.15 BASO 0.04 0.04 0.03 - 0.03 - = values in this interval not displayed. Recent Labs Component Name 07/26/19 1248 06/28/19 1351 06/09/19 1341 BUN 12 11 16 CREATININE 1.0 1.6* 1.0 NA 140 141 143 POTASSIUM 4.3 4.1 4.3 CL 108* 109* 109* CO2 23 25 26 GLU 97 97 84 CALCIUM 9.1 9.4 9.4 PROT 6.0 6.0 6.3 ALB 4.0 4.2 4.3 TBILI 0.4 0.4 0.3 ALKPHOS 74 63 70 ALT 68* 31 30 AST 31 19 22 ANIONGAP 13 11 12 BCR 12 7 16 OSMOLALITY 290 291 296 AGRATIO 2.0 2.3 2.2 EGFR >60 46* >60 Recent Labs Component Name 07/26/19 1248 06/28/19 1351 06/09/19 1341 MAGNESIUM 1.8 1.7 1.9 Recent Labs Component Name 07/26/19 1248 06/28/19 1351 06/09/19 1341 PHOS 3.2 2.5 3.4 LDH Total Date Value Ref Range Status 05/24/2019 179 125 - 243 Units/L Final 03/22/2019 231 125 - 243 Units/L Final Most Recent Disease Specific Testing: CT A/P (07/26/19) pending CT C/A/P (06/09/19): The spleen is enlarged, [...] early relapse. Now s/p cycle 3 Bendamustine/Gazyva -repeat disease evaluation after cycle 2 showed improvement in spleen size, repeat imaging today. -will need to consider spleen size prior to mobilization, but seems improved as pain is significantly improved; plts improved as well. -ACV 400 mg BID Other System Review Arthritis -on diclofenac BID -arthritic pain worsened since stopping marijuana, using more [place] (3-4/day) Cardiac History -historical a. Fib,notes are [...] 10 mg daily and continue to follow Marijuana Drug Use -stopped 06/16/19 -continues to be positive today (07/26/19), repeated discussions on importance of avoiding drug use. Disposition/Recommendations: RN coordinator reviewed calendar with Aurelio, who will start organ function testing in next few weeks. MISSY [facility] CAR PAINTER/SANDBLASTER documented in this encounter Plan of Treatment Upcoming Encounters Date Type Department Care Team (Late st Contact Info) Description 08/26/2024 11:00 AM RAIL CAR PAINTER/SANDBLASTER Office Visit [facility] - Pulmonology [address] [place] [address], [place] [id number] Andrew Francis MD [address] [place] [address] OF PULMONARY/[place] [address] documented as of this encounter Procedures Procedure Name Priority Date/Time Associated Diagnosis Comments CBC W AUTO DIFFERENTIAL STAT 07/26/2019 12:48 PM RAIL CAR PAINTER/SANDBLASTER Diffuse large B-cell lymphoma, unspecified body region (HCC) COMPREHENSIVE METABOLIC PANEL STAT 07/26/2019 12:48 PM RAIL CAR PAINTER/SANDBLASTER Diffuse large B-cell lymphoma, unspecified body region (HCC) PHOSPHORUS BLOOD STAT 07/26/2019 12:4 8 PM RAIL CAR PAINTER/SANDBLASTER Diffuse large B-cell lymphoma, unspecified body region (HCC) MAGNESIUM BLOOD STAT 07/26/2019 12:48 PM RAIL CAR PAINTER/SANDBLASTER Diffuse large B-cell lymphoma, unspecified body region (HCC) URINE DRUG SCREEN IMMUNOASSAY Routine 07/26/2019 12:47 PM RAIL CAR PAINTER/SANDBLASTER History of marijuana use documented in this encounter Results * PHOSPHORUS BLOOD (07/26/2019 12:48 PM RAIL CAR PAINTER/SANDBLASTER) Phosphorus 3.2 2.3 - 4.7 mg/dL 07/26/2019 2:16 PM [facility] Blood BLOOD SPECIMEN / Unknown Venipuncture / Unknown 07/26/2019 12:48 PM RAIL CAR PAINTER/SANDBLASTER 07/26/2019 1:13 PM RAIL CAR PAINTER/SANDBLASTER Tiffanie Nguyen DIRECTOR [facility] - CHEMISTRY ORDERABLES [address] [phone] * MAGNESIUM BLOOD (07/26/2019 12:48 PM RAIL CAR PAINTER/SANDBLASTER) Pathologist [facility] Magnesium 1.8 1.6 - 2.6 mg/dL 07/26/2019 2:16 PM [facility] Blood BLOOD SPECIMEN / Unknown Venipuncture / Unknown 07/26/2019 12:48 PM RAIL CAR PAINTER/SANDBLASTER 07/26/2019 1:13 PM RAIL CAR PAINTER/SANDBLASTER Tiffanie Nguyen [facility] LAB - CHEMISTRY ORDERABLES [address] [phone] * (ABNORMAL) CBC W AUTO DIFFERENTIAL (07/26/2019 12:48 PM RAIL CAR PAINTER/SANDBLASTER) Pathologist [facility] WBC 3.0(L) 3.5 - 10.5 10? 3 /uL 07/26/2019 1:51 PM [facility] RBC 4.46 4.30 - 5.70 10? 6 /uL 07/26/2019 1:51 PM [facility] Hemoglobin 13.0(L) 13.5 - 17.5 g/dL 07/26/2019 1:51 PM [facility] Hematocrit 37.1(L) 39.0 - 50.0 % 07/26/2019 1:51 PM [facility] MCV 83.2 81.0 - 97.0 fL 07/26/2019 1:51 PM [facility] MCH 29.1 28.0 - 34.0 pg 07/26/2019 1:51 PM [facility] MCHC 35.0 32.0 - 36.0 g/dL 07/26/2019 1:51 PM [facility] Platelet Count 59(L) 150 - 400 10? 3 /uL 07/26/2019 1:51 PM [facility] Comment:Checked with the pre vious result. RDW-SD 44.8 36.0 - 50.0 fL 07/26/2019 1:51 PM [facility] RDW-CV 14.9(H) 11.2 - 14.8 % 07/26/2019 1:51 PM [facility] MPV 9.6 9.3 - 12.8 fL 07/26/2019 1:51 PM [facility] nRBC Absolute 0.00 0 10? 3 /uL 07/26/2019 1:51 PM [facility] nRBC Auto 0.0 0 /100 WBC 07/26/2019 1:51 PM [facility] Neutrophils % 69.0 35.0 - 70.0 % 07/26/2019 1:51 PM [facility] Lymphocytes % 13.7(L) 19.7 - 55.1 % 07/26/2019 1:51 PM [facility] Monocytes % 10.7 3.0 - 15.0 % 07/26/2019 1:51 PM [facility] Eosinophils % 5.0 0.0 - 6.0 % 07/26/2019 1:51 PM [facility] Basophil % 1.3 0.0 - 1.5 % 07/26/2019 1:51 PM [facility] Neutrophils Absolute 2.1 1.6 - 7.0 10? 3 /uL 07/26/2019 1:51 PM [facility] Lymphocyte Absolute 0.4(L) 0.8 - 2.9 10? 3 /uL 07/26/2019 1:51 PM [facility] Monocytes Absolute 0.32 0.14 - 0.66 10? 3 /uL 07/26/2019 1:51 PM [facility] Eosinophils Absolute 0.15 0.00 - 0.45 10? 3 /uL 07/26/2019 1:51 PM [facility] Basophils Absolute 0.04 0.00 - 0.06 10? 3 /uL 07/26/2019 1:51 PM [facility] Immature Granulocytes % 0.3 0.0 - 1.0 % 07/26/2019 1:51 PM [facility] Blood BLOOD SPECIMEN / Unknown Venipuncture / Unknown 07/26/2019 12:48 PM RAIL CAR PAINTER/SANDBLASTER 07/26/2019 1:13 PM RAIL CAR PAINTER/SANDBLASTER Tiffanie Nguyen DIRECTOR OF INFECTION CONTROL-FERRY ENGINEER LAB - HEMATOLOG Y ORDERABLES Performing Organization Address City/State/[facility] Co de Phone Number [facility] [address] [phone] * (ABNORMAL) COMPREHENSIVE METABOLIC PANEL (07/26/2019 12:48 PM RAIL CAR PAINTER/SANDBLASTER) BUN 12 7 - 26 mg/dL 07/26/2019 2:16 PM [facility] Creatinine 1.0 0.6 - 1.2 mg/dL 07/26/2019 2:16 PM [facility] Sodium 140 136 - 145 mmol/L 07/26/2019 2:16 PM [facility] Potassium 4.3 3.5 - 4.5 mmol/L 07/26/2019 2:16 PM [facility] Chloride 108(H) 98 - 107 mmol/L 07/26/2019 2:16 PM [facility] CO2 23 22 - 29 mmol/L 07/26/2019 2:16 PM [facility] Glucose 97 70 - 115 mg/dL 07/26/2019 2:16 PM [facility] Calcium 9.1 8.4 - 10.2 mg/dL 07/26/2019 2:16 PM [facility] Protein Total 6.0 6.0 - 8.3 g/dL 07/26/2019 2:16 PM [facility] Albumin 4.0 3.4 - 5.0 g/dL 07/26/2019 2:16 PM [facility] Bilirubin Total 0.4 0.2 - 1.2 mg/dL 07/26/2019 2:16 PM [facility] Alkaline Phosphatase 74 40 - 150 Units/L 07/26/2019 2:16 PM [facility] ALT 68(H) 0 - 55 Units/L 07/26/2019 2:16 PM [facility] AST 31 5 - 34 Units/L 07/26/2019 2:16 PM [facility] Anion Gap 13 8 - 18 07/26/2019 2:16 PM [facility] BUN/Creatinine Ratio 12 7 - 23 07/26/2019 2:16 PM [facility] Osmolality Calculated 290 270 - 300 mOsm/kg 07/26/2019 2:16 PM [facility] Albumin/Globulin Ratio 2.0 1.1 - 2.3 07/26/2019 2:16 PM [facility] eGFR >60 >60 mL/min/1.7 3 m2 07/26/2019 2:16 PM [facility] Blood BLOOD SPECIMEN / Unknown Venipuncture / Unknown 07/26/2019 12:48 PM [facility] 07/26/2019 1:13 PM [facility] Tiffanie Nguyen DIRECTOR OF INFECTION CONTROL-FERRY ENGINEER LAB - CHEMISTRY ORDERABLES Performing Organization Address City/State/[facility] Co de Phone Number [facility] [address] [place] [address] * (ABNORMAL) DRUG SCREEN TOX URINE PANEL (07/26/2019 12:47 PM [facility]) Amphetamines Screen Urine Negative Negative : < 1000 ng/mL 07/26/2019 2:34 PM [facility] Barbiturates Screen Urine Negative Negative : < 200 ng/mL 07/26/2019 2:34 PM [facility] Benzodiazepine Screen Urine Negative Negative : < 200 ng/mL 07/26/2019 2:34 PM [facility] Opiates Urine Positive(A) Negative : < 300 ng/mL 07/26/2019 2:34 PM [facility] Comment: Positive urine opiate screening results should be confirmed by another generally accepted non-immunological method such as gas chromatography or mass spectrometry. ? Cocaine Metabolites Urine Negative Negative : < 300 ng/mL 07/26/2019 2:34 PM [facility] Phencyclidine Screen Urine Negative Negative : < 25 ng/ml 07/26/2019 2:34 PM [facility] Cannabinoids Screen Urine Positive(A) Negative : <50 ng/mL 07/26/2019 2:34 PM [facility] Comment: Positive urine cannabinoids (THC) screening results should be confirmed by another generally accepted non-immunological method such as gas chromatography or mass spectrometry. ? Methadone Screen Urine Negative Negative : < 300 ng/mL 07/26/2019 2:34 PM [facility] Fentanyl Screen Urine Negative Negative : <1.0 ng/mL 07/26/2019 2:34 PM [facility] Urine URINE / Unknown Collection / Unknown 07/26/2019 12:47 PM [facility] 07/26/2019 2:23 PM [facility] - 07/26/2019 2:34 PM [facility] The Urine Toxicology Screening Panel does not screen for Propoxyphene, Meprobamate, Carisoprodol, Trazodone, uswz-llb-tpjycyx medications and/or volatiles (Acetone, Isopropanol, Methanol or [...] be used for clinical purposes only. ? Lara Buss DIRECTOR OF INFECTION CONTROL-FERRY ENGINEER LAB - URINE LINDA MIRIAN ORDERABLES [facility] [address] [phone] documented in this encounter Visit Diagnoses Diagnosis History of marijuana use- Primary Diffuse large B-cell lymphoma, unspecified body region (HCC) B-cell lymphoma, unspecified B-cell lymphoma type, unspecified body region (HCC) Anxiety Anxiety state, unspecified documented in this encounter Care Teams Director And Professor Relationship Specialty Start Date End Date Ran Nuñez MD [address] [place] [phone] PCP - General Family Medicine 03/22/19 12/22/20 Hillary Apple MD [address] [place] [address] Hematology and Oncology 03/17/19 Bill Ferrera MD [address] [place] [address] Hematology and Oncology 03/17/19 08/27/21 Tony Dumont MD [address] [place], [place] [id number] Hematology and Oncology 03/17/19 Shalini Segal MD [address] [place] [address] Hematology and Oncology 03/17/19 09/29/19 Karie Jones, ROSEMARY Registered Nurse 03/17/19 09/21/19 Maryjo Reinoso LCSW Subscription Crew Leader 03/17/19 Madyson Clay, PharmD 03/17/19 Dana Lala APRN-MACHINE RIVETER [address] [place] [address] [place] [address] Oncology 03/17/19 Mckinley Silver PA-C [address] [place] [address] [place] [address] Physician Solar Sales Energy Advisor 03/17/19 09/08/19 Tiffanie Nguyen APRN-ERIKA [address] [place] [address] Family Medicine 03/17/19 Stephanie Mahoney, RN Registered Nurse 03/17/19 10/29/21 Alycia Galvan, ROSEMARY 03/17/19 10/29/21 Cesar Tavares MD [address] [place] [address] Referring Physician Medical Oncology 03/23/19 Karie Jones, RN Registered Nurse 06/08/19 10/29/21 documented as of this encounter
--- OUTSIDE RECORDS SUMMARY | 2024-08-18 00:35 | XMS_ITS | Encounter Summary ---
Author Organization [facility] Address [address] [place] [address] Care Team Providers Care Food Handler Name Role Phone Hillary Apple MD Unavailable [phone] Bill Ferrera MD Unavailable [phone] Tony Dumont MD Unavailable [phone] Shalini Segal MD Unavailable [phone] Karie Jones RN Unavailable Unavailable Maryjo Reinoso LCSW Unavailable Unavailable Madyson Clay PharmD Unavailable Unavaila Dana Galicia CABINET ABRASIVE SANDBLASTER-SUPERVISOR AREA Unavailable [phone] Mckinley Silver-C Unavailable Unavail able Patrick, Tiffanie Seymour CABINET ABRASIVE SANDBLASTER-INDUSTRIAL ECOLOGIST Unavailable [phone] Stephanie Mahoney RN Unavailable Unavailable Alycia Galvan RN Unavailable UnavailRan Mejía MD Primary Care Provider Cesar Tavares MD Unavailable [phone] Karie Jones RN Unavailable Unavailable Reason for Visit * Reason Onset Date Comments Follow-up 06/12/2019 Encounter Details Date Type Department Care Team (Late st Contact Info) Description 06/12/2019 Telephone [facility] [address] [place] [address] Tia Varghese, RN Follow-up Social History Tobacco Use Types Packs/Day Years [...] Contact Info) Description 08/26/2024 11:00 AM SENIOR CHEMICAL PROCESS ENGINEER Office Visit [facility] - Pulmonology [address] [place] [address], [place] [address] Andrew Francis MD [address] [place] [address] [address] DIV OF PULMONARY/[place] [address] documented as of this encounter Visit Diagnoses Not on filedocumented in this encounter Care Teams Food Handler Relationship Specialty Start Date End Date Ran Nuñez MD [address] [place] [address] PCP - General Family Medicine 03/22/19 12/22/20 Hillary Apple MD [address] [place] [address] Hematology and Oncology 03/17/19 Bill Ferrera MD [address] [place] [address] Hematology and Oncology 03/17/19 08/27/21 Tony Dumont MD [address] [place] [address] Hematology and Oncology 03/17/19 Shalini Segal MD [address] [place] [address] Hematology and Oncology 03/17/19 09/29/19 Karie Joens, ROSEMARY Registered Nurse 03/17/19 09/21/19 Maryjo Reinoso LCSW Position Description Manager 03/17/19 Madyson Clay, PharmD 03/17/19 Dana Lala, CABINET ABRASIVE SANDBLASTER-SUPERVISOR AREA [address] [facility] 2nd [place] [address] Oncology 03/17/19 Mckinley Silver PA-C [address] [place] [address] Physician Manager Perioperative 03/17/19 09/08/19 Tiffanie Nguyen, CABINET ABRASIVE SANDBLASTER-INDUSTRIAL ECOLOGIST [address] [place] [address] Family Medicine 03/17/19 Stephanie Mahoney, RN Registered Nurse 03/17/19 10/29/21 Alycia Galvan, RN 03/17/19 10/29/21 Cesar Tavares MD [address] [place] [address] Referring Physician Medical Oncology 03/23/19 Karie Jones, RN Registered Nurse 06/08/19 10/29/21 documented as of this encounter
--- OUTSIDE RECORDS SUMMARY | 2024-08-18 00:35 | XMS_ITS | Encounter Summary ---
Author Organization [facility] Address [address] [place] [address] Care Team Providers Care Rn Heart Name Role Phone Hillary Apple MD Unavailable [phone] Bill Ferrera MD Unavailable [phone] Tony Dumont MD Unavailable Shalini Segal MD Unavailable [phone] Karie Jones RN Unavailable Unavailable Maryjo ReinosoW Unavailable Unavailable Madyson Clay PharmD Unavailable Unavaila Dana Galicia JAPANESE PROFESSOR-WATER PUMP INSTALLER Unavailable [phone] Mckinley Silver-C Unavailable Unavail able Patrick, Tiffanie Seymour JAPANESE PROFESSOR-MANAGER PHARMACEUTICAL Unavailable [phone] Stephanie Mahoney RN Unavailable Unavailable Alycia Galvan RN Unavailable UnavailRan Mejía MD Primary Care Provider Cesar Tavares MD Unavailable [phone] Karie Jones RN Unavailable Unavailable Encounter Details Date Type Department Care Team (Late st Contact Info) Description 06/29/[address] [facility] [address] [place] [address] Karie Jones, RN Social History Tobacco Use Types Packs/Day Years Used Date Smoking Tobacco: Never Assessed Sex and Gender Information Value Date Recorded Sex Assigned at Male 03/27/2022 11:34 AM CDT Gender Identity Male 03/27/2022 11:34 AM CDT Sexual Orientation Straight 03/27/2022 11 :34 AM CDT documented as of this encounter Miscellaneous Notes * Telephone Encounter - Karie Jones RN - 06/29/2019 11:21 AM CST Spoke with Dr. 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 We will then do a spleen rassessmnet at end of July. Plan is to do Organ functions in beginning of August, and collect cells . OR CLINICAL DATA COORDINATOR documented in this encounter Plan of Treatment Upcoming Encounters Date Type Department Care Team (Late st Contact Info) Description 08/26/2024 11:00 AM SENIOR CLINICAL DATA COORDINATOR Office Visit [facility] - Pulmonology [address] [place] [address], [place] [address] Andrew Francis MD [address] [place] [address] DIV OF PULMONARY/[place] [address] documented as of this encounter Visit Diagnoses Not on filedocumented in this encounter Care Teams Rn Heart Relationship Specialty Start Date End Date Ran Nuñez MD [address] [place] [address] PCP - General Family Medicine 03/22/19 12/22/20 Hillary Apple MD [address] [place] [address] Hematology and Oncology 03/17/19 Bill Ferrera MD [address] [place] [address] Hematology and Oncology 03/17/19 08/27/21 Tony Dumont MD [address] [place] [address] Hematology and Oncology 03/17/19 Shalini Segal MD [facility] [place] [address] Hematology and Oncology 03/17/19 09/29/19 Karie Jnoes, RN Registered Nurse 03/17/19 09/21/19 Maryjo Reinoso, EXTRACTOR LOADER AND UNLOADER Diamond Sizer And Sorter 03/17/19 Madyson Clay, PharmD 03/17/19 Dana Lala, JAPANESE PROFESSOR-WATER PUMP INSTALLER [address] [place] [address] 2nd [place] [address] Oncology 03/17/19 Mckinley Silver PA-C [address] [place] [address] 2nd [place] [address] Physician Stoneworking Belt Sander 03/17/19 09/08/19 Tiffanie Nguyen, JAPANESE PROFESSOR-MANAGER PHARMACEUTICAL [address] [place] [address] 2nd [place] [address] Family Medicine 03/17/19 Stephanie Mahoney, RN Registered Nurse 03/17/19 10/29/21 Alycia Galvan, ROSEMARY 03/17/19 10/29/21 Cesar Tavares MD [address] [place] [address] [place] [address] Referring Physician Medical Oncology 03/23/19 Karie Jones, RN Registered Nurse 06/08/19 10/29/21 documented as of this encounter
--- OUTSIDE RECORDS SUMMARY | 2024-08-18 00:35 | XMS_ITS | Encounter Summary ---
Author Organization [facility] Address [address] [facility] [place] [address] Care Team Providers Care Soa Integration Architect Name Role Phone Hillary Apple MD Unavailable [phone] Bill Ferrera MD Unavailable [phone] Tony Dumont MD Unavailable [phone] Shalini Segal MD Unavailable [phone] Karie Jones RN Unavailable Unavailable Maryjo Reinoso LCSW Unavailable Unavailable Madyson Clay PharmD Unavailable Unavaila Dana Galicia DRY PAN FEEDER-PHARMACEUTICAL COMPOUNDING SUPERVISOR Unavailable [phone] Mckinley SilverC Unavailable Unavail able Tiffanie Mcpherson APRN-PERSONAL LINES ADVISOR Unavailable [phone] Stephanie Mahoney RN Unavailable Unavailable Alycia Galvan RN Unavailable UnavailRan Mejía MD Primary Care Provider Cesar Tavares MD Unavailable [phone] Karie Jones RN Unavailable Unavailable Reason for Referral * Procedure (Routine) - Closed Specialty Diagnoses / Procedures Referred By Deng t Referred To Contact Diagnoses Pre-transplant evaluation for stem cell transplant Procedures COMPLETE PFT Tiffanie Mcpherson APRN-PERSONAL LINES ADVISOR [address] [place] [address] Referral ID Status Reason Start Date Expiration Date Visits Re quested Visits Authorized [id number] Closed 06/28/2019 12/25/2019 1 1 ING MACHINE OPERATOR * Radiology Services (Routine) - Closed Specialty Diagnoses / Procedures Referred By Contac t Referred To Contact Diagnoses Pre-transplant evaluation for stem cell transplant Procedures PROC FIBROSCAN Patrick PRASANNA Bermudez [address] [place] [address] Referral ID Status Reason Start Date Expiration Date Visits Re quested Visits Authorized [id number] Closed 06/28/2019 12/25/2019 1 1 ING MACHINE OPERATOR * Procedure (Routine) - Closed Specialty Diagnoses / Procedures Referred By Contac t Referred To Contact Cardiology Diagnoses Pre-transplant evaluation for stem cell transplant Procedures EKG 12-LEAD Tiffanie Mcpherson APRN-CNP [address] [place] [address] Referral ID Status Reason Start Date Expiration Date Visits Re quested Visits Authorized [id number] Closed 06/28/2019 12/25/2019 1 1 ING MACHINE OPERATOR * Radiology Services (Routine) - Closed Specialty Diagnoses / Procedures Referred By Contjohn t Referred To Contact Echosonography Diagnoses Pre-transplant evaluation for stem cell transplant Procedures ECHO COMPLETE Tiffanie Mcpherson APRN-CNP [address] [place] [address] [facility] Echo [address] [place] [address] Referral ID Status Reason Start Date Expiration Date Visits Re quested Visits Authorized [id number] Closed 06/28/2019 12/25/2019 1 1 ING MACHINE OPERATOR * Radiology Services (Routine) - Closed Specialty Diagnoses / Procedures Referred By Deng t Referred To Contact Positron Emission Tomography Diagnoses Pre-transplant evaluation for stem cell transplant Procedures PET CT WHOLE BODY Tiffanie Mcpherson APRN-CNP [address] [place] [address] [facility] Pet Op [address] [place] [address] Referral ID Status Reason Start Date Expiration Date Visits Re quested Visits Authorized [id number] Closed 06/28/2019 12/25/2019 1 1 ING MACHINE OPERATOR Encounter Details Date Type Department Care Team (Late st Contact Info) Description 06/28/2019 Orders Only [facility] [address] [place] [address] Tiffanie Mcpherson APRN-CNP [address] [place] [address] Pre-transplant evaluation for stem cell transplant Social [...] st Contact Info) Description 08/26/2024 11:00 AM BEATING MACHINE OPERATOR Office Visit [facility] - Pulmonology [address] [facility], [place] [address] Andrew Francis MD [address] [place] [address] 2L DIV OF PULMONARY/[place] [address] documented as of this encounter Results * XR PANOREX (09/09/2019 11:55 AM BEATING MACHINE OPERATOR) Anatomical Region Laterality Modality Head Radiographic Chayito ging 09/09/2019 11:5 1 AM BEATING MACHINE OPERATOR Impressions 09/09/2019 3:27 PM BEATING MACHINE OPERATOR IMPRESSION: All teeth are missing. Intact osseous structures. Report drafted by Yg Lee M.D. (resident) I, Dr. EMILIA LA M.D. have personally reviewed and interpreted this examination/study. This report was electronically signed by EMILIA LA M.D. ??on 09/09/2019 3:27 PM . Narrative 09/09/2019 3:27 PM BEATING MACHINE OPERATOR EXAMINATION: Panorex HISTORY: Z01.818: Pre-transplant evaluation for [...] M.D. on 09/09/2019 3:27 PM . Tiffanie Mcpherson DRY PAN FEEDER-PERSONAL LINES ADVISOR DIAGNOSTIC IMAG ING ORDERABLES * XR CHEST 2VW (09/09/2019 11:55 AM BEATING MACHINE OPERATOR) Anatomical Region Laterality Modality Chest Radiographic Chayito ging 09/09/2019 11:1 8 AM BEATING MACHINE OPERATOR Impressions 09/09/2019 11:27 AM BEATING MACHINE OPERATOR IMPRESSION: 1.No acute pulmonary process is seen. Report drafted by Yg Lee M.D. (resident) Dr. OMAR Harris have personally reviewed and interpreted this examination/study. This report was electronically signed by OMAR WOODSON ??on 09/09/2019 11:27 AM . Narrative 09/09/2019 11:27 AM BEATING MACHINE OPERATOR EXAMINATION: XR CHEST 2VW HISTORY: Z01.818: Pre-transplant evaluation for stem cell transplant COMPARISON: None. FINDINGS: A right IJ CVC tip is in the SVC. No focal consolidation, pleural effusion, or pneumothorax is seen. The cardiomediastinal silhouette is normal. No acute fractures are seen. Procedure Note Omar Woodson DO - 09/09/2019 EXAMINATION: XR CHEST 2VW HISTORY: Z01.818: Pre-transplant evaluation for stem cell transplant COMPARISON: None. FINDINGS: A right IJ CVC tip is in the SVC. No focal consolidation, pleural effusion, or pneumothorax is seen. The cardiomediastinal silhouette is normal. No acute fractures are seen. IMPRESSION: 1.No acute pulmonary process is seen. Report drafted by Yg Lee M.D. (resident) I, Dr. OMAR WOODSON have personally reviewed and interpreted this examination/study. This report was electronically signed by OMAR WOODSON on 09/09/2019 11:27 AM . Tiffanie Mcpherson DRY PAN FEEDER-PERSONAL LINES ADVISOR DIAGNOSTIC IMAG ING ORDERABLES * MS LIVER ELASTOGRAPHY (08/15/2019 9:31 PM BEATING MACHINE OPERATOR) Narrative Travon Merchant MD - 08/15/2019 9:31 PM BEATING MACHINE OPERATOR Travon Merchant MD ? 08/15/2019 ??9:31 PM [...] Technical Difficulty: None Ordering Provider: Tiffanie Mcpherson INFORMATION MANAGEMENT MANAGER Phone Fax Fibroscan interpretation: I have [...] patients with nonalcoholic fatty liver disease. Gastroenterology 2019;156:2052-9922. Renuka MS, Desire R, Van Shirata ML, et al. Vibration-controlled transient elastography to [...] improved by also calculating the FIB4 score (Davyduke et al. Hepat[employer] 2019;3:3667-3583) or NAFLD Fibrosis score (Moura et al. Clinical Gastroenterology and Hepatology 2019;17:3786-1481. from routine clinical data. 3. Liver stiffness [...] change as additional supporting data becomes available. [email or web address] Tiffanie Mcpherson DRY PAN FEEDER-PERSONAL LINES ADVISOR PROCEDURE/MINOR SURGICAL ORDERABLES * SIX MINUTE WALK (08/11/2019 2:27 PM BEATING MACHINE OPERATOR) Impressions Apolinar Ramos MD - 08/11/2019 2:27 PM BEATING MACHINE OPERATOR [facility] DEPARTMENT OF PULMONARY, CRITICAL CARE, AND SLEEP MEDICINE SIX MINUTE WALK TEST Marcello Guillen 08/11/2019 Interpretation: The patient walked for 6 [...] of Pulmonary, Critical Care, & Sleep Medicine [facility] Beeper #:[phone] I have personally reviewed the pulmonary function test data and made adjustment to the interpretation where necessary. Apolinar Ramos MD 08/12/2019 Narrative Apolinar Ramos MD - 08/11/2019 2:27 PM BEATING MACHINE OPERATOR Moon Nance MD ? 08/11/2019 ??4:38 PM Procedure Note Moon Nance MD - 08/11/2019 2:27 PM CST Images from the original note were not included. Tiffanie Mcpherson JOSE DAVID-PERSONAL LINES ADVISOR RESPIRATORY THE RAPY ORDERABLES * COMPLETE PFT (08/11/2019 2:22 PM BEATING MACHINE OPERATOR) Impressions Apolinar Ramos MD - 08/11/2019 2:22 PM BEATING MACHINE OPERATOR [facility] DEPARTMENT OF PULMONARY, CRITICAL CARE, AND [...] of Pulmonary, Critical Care and Sleep Medicine [facility] Pager: [phone] I have personally reviewed the pulmonary function test data and made adjustment to the interpretation where necessary. Apolinar Ramos MD 08/12/2019 Narrative Apolinar Ramos MD - 08/11/2019 2:22 PM BEATING MACHINE OPERATOR Moon Nance MD ? 08/11/2019 ??4:38 PM Procedure Note Moon Nance MD - 08/11/2019 2:22 PM CST Images from the original note were not included. Tiffanie MIMS RESPIRATORY THE RAPY ORDERABLES * ECHO COMPLETE (08/11/2019 11:03 AM BEATING MACHINE OPERATOR) Anatomical Region Laterality Modality Echo 08/11/2019 10:2 8 AM BEATING MACHINE OPERATOR Narrative Procedure Note Olivia Payan MD - 08/11/2019 Tiffanie MIMS ECHOCARDIOGRAPH Y RADIANT * PET CT WHOLE BODY (08/11/2019 10:29 AM BEATING MACHINE OPERATOR) Anatomical Region Laterality Modality Positron Emissio n Tomography (PET) 08/11/2019 10:2 9 AM BEATING MACHINE OPERATOR Impressions 08/12/2019 4:41 PM BEATING MACHINE OPERATOR IMPRESSION: 1. No evidence of recurrent or residual disease (Deauville 1). This report was approved ??by Tacos Rainey M.D. ?? on 08/11/2019 11:15 AM . I, Dr. ANURADHA RHODES M.D. have personally reviewed and interpreted this examination/study. This report was electronically signed by ANURADHA RHODES M.D. ??on 08/12/2019 4:41 PM . Narrative 08/12/2019 4:41 PM BEATING MACHINE OPERATOR PROCEDURE: PET/CT Study REFERRING PHYSICIAN: TIFFANIE MCPHERSON [...] is made to a PET/CT performed at [facility] on March 15, 2019. For reference, [...] 08/12/2019 PROCEDURE: PET/CT Study REFERRING PHYSICIAN: TIFFANIE MCHPERSON HISTORY: Diffuse large B-cell lymphoma status post [...] is made to a PET/CT performed at [facility] on March 15, 2019. For reference, [...] M.D. on 08/12/2019 4:41 PM . Tiffanie Seymour Patrick DRY PAN FEEDER-PERSONAL LINES ADVISOR [place] ORDERABLES documented in this encounter Visit Diagnoses Diagnosis Pre-transplant evaluation for stem cell transplant- Primary Pre-transplant evaluation for stem cell transplant Pre-transplant evaluation for stem cell transplant Pre-transplant evaluation for stem cell transplant Pre-transplant evaluation for stem cell transplant- Primary Pre-transplant evaluation for stem cell transplant Pre-transplant evaluation for stem cell transplant documented in this encounter Care Teams Soa Integration Architect Relationship Specialty Start Date End Date Ran Nuñez MD [address] [place] [address] PCP - General Family Medicine 03/22/19 12/22/20 Hillary Apple MD [address] [place] [address] Hematology and Oncology 03/17/19 Bill Ferrera MD [facility] [place] [address] Hematology and Oncology 03/17/19 08/27/21 Tony Dumont MD [facility] [place] [address] Hematology and Oncology 03/17/19 Shalini Segal MD [address] [place] [address] Hematology and Oncology 03/17/19 09/29/19 Karie Jones, RN Registered Nurse 03/17/19 09/21/19 Maryjo Reinoso LCSW Patrol Inspector 03/17/19 Madyson Clay, PharmD 03/17/19 Dana Lala, DRY PAN FEEDER-PHARMACEUTICAL COMPOUNDING SUPERVISOR [address] [place] [address] [address] [address] Oncology 03/17/19 Mckinley Silver PA-C [address] [place] [address] [address] [address] Physician Mask Inspector 03/17/19 09/08/19 Tiffanie Mcpherson DRY PAN FEEDER-PERSONAL LINES ADVISOR [address] [place] [address] [address] [place] [address] Family Medicine 03/17/19 Stephanie Mahoney, RN Registered Nurse 03/17/19 10/29/21 Alycia Galvan, ROSEMARY 03/17/19 10/29/21 Cesar Tavares MD [address] [place] [address] Referring Physician Medical Oncology 03/23/19 Karie Jones, RN Registered Nurse 06/08/19 10/29/21 documented as of this encounter
--- OUTSIDE RECORDS SUMMARY | 2024-08-18 00:35 | XMS_ITS | Encounter Summary ---
Author Organization [facility] Address [address] [facility] [place] [address] Care Team Providers Care Network Director Name Role Phone Hillary Apple MD Unavailable [phone] Bill Ferrera MD Unavailable [phone] Tony Dumont MD Unavailable [phone] Shalini Segal MD Unavailable [phone] Karie Jones RN Unavailable Unavailable Maryjo Reinoso LCSW Unavailable Unavailable Madyson Clay PharmD Unavailable Unavaila Dana Galicia PACKAGE CLERK-TUMBLING MACHINE OPERATOR Unavailable [phone] Mckinley SilverC Unavailable Unavail able PatrickTiffanie APRN-RISK CONTROL OFFICER Unavailable [phone] Stephanie Mahoney RN Unavailable Unavailable Alycia Galvan RN Unavailable UnavailRan Mejía MD Primary Care Provider Cesar Tavares MD Unavailable [phone] Karie Jones RN Unavailable Unavailable Reason for Referral * Radiology Services (Routine) - Closed Specialty Diagnoses / Procedures Referred By Contjohn t Referred To Contact Interventional Radiology Diagnoses Diffuse large B-cell lymphoma, unspecified body region (HCC) Procedures IR CENTRAL LINE REMOVAL Patrick, Tiffanie [place] APRN-RISK CONTROL OFFICER [address] [place] [address] [facility] [address] [place] [address] Referral ID Status Reason Start Date Expiration Date Visits Re quested Visits Authorized [id number] Closed 08/20/2019 01/03/2020 1 1 ESS FITTER Encounter Details Date Type Department Care Team (Late st Contact Info) Description 07/07/2019 Orders Only [facility] CL[facility] [address] [place] [address] Tiffanie Nguyen APRN-CNP [address] [place] [address] Diffuse large B-cell lymphoma, unspecified body region [...] st Contact Info) Description 08/26/2024 11:00 AM HARNESS FITTER Office Visit [facility] - Pulmonology [address] [place] [address], [place] [id number] Andrew Francis MD [address] [place] [address] 2L DIV OF PULMONARY/[place] [address] documented as of this encounter Results * IR CENTRAL LINE REMOVAL (09/17/2019 10:52 AM HARNESS FITTER) Anatomical Region Laterality Modality X-Ray Angiograph y 09/17/2019 4:03 PM HARNESS FITTER Narrative 09/17/2019 4:09 PM HARNESS FITTER This is an Interventional Nephrology procedure performed on September 17, 2019 Receiving Specialist: Tom Lamar Mold Worker : Lizandro Murdock and Darwin Hughes Attending: [...] evaluation, please review the evaluation forms in [facility]. For details on monitored clinical parameters during the intra-service sedation time, please review the procedure nurse documentation in [facility]. Under real time ultrasound guidance, the left internal jugular vein was accessed with a micropuncture needle, a coates scale image was recorded and a microfilament wire was advanced to the central veins under fluoroscopic guidance. ??This allowed the placement of a 5 Kinyarwanda trocar which in turn allowed the placement [...] ??on 09/17/2019 4:09 PM . Tiffanie Nguyen PACKAGE CLERK-RISK CONTROL OFFICER IR ORDERABLES documented in this encounter Visit Diagnoses Diagnosis Diffuse large B-cell lymphoma, unspecified body region (HCC)- Primary Diffuse large B-cell lymphoma, unspecified body region (HCC) documented in this encounter Care Teams Network Director Relationship Specialty Start Date End Date Ran Nuñez MD [address] [facility] [place] [address] PCP - General Family Medicine 03/22/19 12/22/20 Hillary Apple MD [facility] [place] [address] Hematology and Oncology 03/17/19 Bill Ferrera MD [address] [place] [address] Hematology and Oncology 03/17/19 08/27/21 Tony Dumont MD [address] [place] [address] Hematology and Oncology 03/17/19 Shalini Segal MD [address] [place] [address] Hematology and Oncology 03/17/19 09/29/19 Karie Jones, RN Registered Nurse 03/17/19 09/21/19 Maryjo Reinoso LCSW Machining Supervisor 03/17/19 Madyson Clay, PharmD 03/17/19 Dana Lala, PACKAGE CLERK-TUMBLING MACHINE OPERATOR [address] [facility] [address] [address] Oncology 03/17/19 Mckinley Silver PA-C [facility] [place] [address] Physician Mold Worker 03/17/19 09/08/19 Tiffanie Nguyen, PACKAGE CLERK-RISK CONTROL OFFICER [facility] [address] [place] [address] Family Medicine 03/17/19 Stephanie Mahoney, RN Registered Nurse 03/17/19 10/29/21 Alycia Galvan, ROSEMARY 03/17/19 10/29/21 Cesar Tavares MD [address] [place] [address] [place] [address] Referring Physician Medical Oncology 03/23/19 Karie Jones, RN Registered Nurse 06/08/19 10/29/21 documented as of this encounter
--- OUTSIDE RECORDS SUMMARY | 2024-08-18 00:35 | XMS_ITS | Encounter Summary ---
Author Organization [facility] Address [address] [facility] [place] [address] Care Team Providers Care Steel Pourer Helper Name Role Phone Hillary Apple MD Unavailable [phone] Bill Ferrera MD Unavailable [phone] Tony Dumont MD Unavailable [phone] Shalini Segal MD Unavailable [phone] Karie Jones RN Unavailable Unavailable Maryjo Reinoso LCSW Unavailable Unavailable Madyson Clay PharmD Unavailable Unavaila Dana Galicia REFRIGERATION PLANT OPERATOR-SPRAY APPLICATOR Unavailable [phone] Mckinley SilverC Unavailable Unavail able Tiffanie Nguyen APRN-NONPROFIT DIRECTOR Unavailable [phone] Stephanie Mahoney RN Unavailable Unavailable Alycia Galvan RN Unavailable UnavailRan Mejía MD Primary Care Provider Cesar Tavares MD Unavailable [phone] Karie Jones RN Unavailable Unavailable Reason for Referral * Procedure (Routine) - Closed Specialty Diagnoses / Procedures Referred By Deng t Referred To Contact Diagnoses Pre-transplant evaluation for stem cell transplant Procedures COMPLETE PFT Tiffanie Nguyen APRN-NONPROFIT DIRECTOR [address] [place] [address] Referral ID Status Reason Start Date Expiration Date Visits Re quested Visits Authorized [id number] Closed 06/28/2019 12/25/2019 1 1 TRY BONER Reason for Visit * Procedure (Routine) - Closed Specialty Diagnoses / Procedures Referred By Deng meraz Referred To Contact Diagnoses Pre-transplant evaluation for stem cell transplant Procedures COMPLETE PFT Tiffanie Nguyen APRN-CNP [address] [place] [address] Referral ID Status Reason Start Date Expiration Date Visits Re quested Visits Authorized [id number] Closed 06/28/2019 12/25/2019 1 1 Encounter Details Date Type Department Care Team (Latest Contact Info) Description 08/11/2019 12:42 PM POULTRY BONER Hospital Encounter [facility] PFT [address] [place] [address] Tiffanie Nguyen APRN-CNP [address] [place] [address] Discharge Disposition: Home or Self [...] 04/27/2019 12/20/2021 documented as of this encounter Procedure Notes * Moon Nance MD - 08/11/2019 2:27 PM CSTAssociated Order(s): SIX MINUTE WALK Images from the original note were not included. TRY BONER * Moon Nance MD - 08/11/2019 2:22 PM CSTAssociated Order(s): COMPLETE PFT Images from the original note were not included. TRY BONER documented in this encounter Plan of Treatment Upcoming Encounters Date Type Department Care Team (Late st Contact Info) Description 08/26/2024 11:00 AM POULTRY BONER Office Visit [facility] - Pulmonology [address] [place] [address], [place] [address] Andrew Francis MD [address] [place] [address] DIV OF PULMONARY/[place] [address] documented as of this encounter Procedures Procedure Name Priority Date/Time Associated Diagnosis Comments SIX MINUTE WALK Routine 08/11/2019 2:27 PM POULTRY BONER Pre-transplant evaluation for stem cell transplant PFT-LAB Routine 08/11/2019 2:22 PM POULTRY BONER Pre-transplant evaluation for stem cell transplant documented in this encounter Results * COMPLETE PFT (08/11/2019 2:22 PM POULTRY BONER) Impressions Apolinar Ramos MD - 08/11/2019 2:22 PM POULTRY BONER [facility] DEPARTMENT OF PULMONARY, [...] of Pulmonary, Critical Care and Sleep Medicine [facility] Pager: [phone] I have personally reviewed the pulmonary function test data and made adjustment to the interpretation where necessary. Apolinar Ramos MD 08/12/2019 Narrative Apolinar Ramos MD - 08/11/2019 2:22 PM POULTRY BONER Moon Nance MD ? 08/11/2019 ??4:38 PM Procedure Note Moon Nance MD - 08/11/2019 2:22 PM CST Images from the original note were not included. Tiffanie Seymour Patrick REFRIGERATION PLANT OPERATOR-NONPROFIT DIRECTOR RESPIRATORY THE [facility] ORDERABLES documented in this encounter Visit Diagnoses Diagnosis Pre-transplant evaluation for stem cell transplant documented in this encounter Care Teams Steel Pourer Helper Relationship Specialty Start Date End Date Ran Nuñez MD [address] [place] [address] PCP - General Family Medicine 03/22/19 12/22/20 Hillary Apple MD [address] [place] [address] Hematology and Oncology 03/17/19 Bill Ferrera MD [address] [place] [address] Hematology and Oncology 03/17/19 08/27/21 Tony Dumont MD [facility] [place] [address] Hematology and Oncology 03/17/19 Shalini Segal MD [address] [place] [address] Hematology and Oncology 03/17/19 09/29/19 Karie Jones, ROSEMARY Registered Nurse 03/17/19 09/21/19 Maryjo Reinoso, REYNA Immunohematologist 03/17/19 Madyson Clay, PharmD 03/17/19 Dana Lala, REFRIGERATION PLANT OPERATOR-SPRAY APPLICATOR [address] [place] [address] Oncology 03/17/19 Mckinley Silver PA-C [address] [address] Physician Yeast Supervisor 03/17/19 09/08/19 Tiffanie Nguyen, REFRIGERATION PLANT OPERATOR-NONPROFIT DIRECTOR [address] [address] Family Medicine 03/17/19 Stephanie Mahoney, RN Registered Nurse 03/17/19 10/29/21 Alycia Galavn, ROSEMARY 03/17/19 10/29/21 Cesar Tavares MD [address] [place] [address] Referring Physician Medical Oncology 03/23/19 Karie Jones, RN Registered Nurse 06/08/19 10/29/21 documented as of this encounter
--- OUTSIDE RECORDS SUMMARY | 2024-08-18 00:35 | XMS_ITS | Encounter Summary ---
Author Organization [facility] Address [address] [place] [address] Care Team Providers Care Sports Complex Attendant Name Role Phone Hillary Apple MD Unavailable [phone] Bill eFrrera MD Unavailable [phone] Tony Dumont MD Unavailable [phone] Shalini Segal MD Unavailable [phone] Karie Jones RN Unavailable Unavailable Maryjo ReinosoW Unavailable Unavailable Madyson Clay PharmD Unavailable Unavaila Dana Galicia SCRAP MATERIALS BUYER-GOLD LETTERER Unavailable [phone] Mckinley Silver-C Unavailable Unavail able Patrick, Tiffanie Seymour SCRAP MATERIALS BUYER-FIXTURE DESIGNER Unavailable [phone] Stephanie Mahoney RN Unavailable Unavailable Alycia Galvan RN Unavailable UnavailRan Mejía MD Primary Care Provider Cesar Tavares MD Unavailable [phone] Karie Jones RN Unavailable Unavailable Encounter Details Date Type Department Care Team (Late st Contact Info) Description 07/07/2019 Telephone [facility] CL[facility] [address] [place] [address] Karie Jones, RN Social History Tobacco Use Types Packs/Day Years Used Date Smoking Tobacco: Never Assessed Sex and Gender Information Value Date Recorded Sex Assigned at Male 03/27/2022 11:34 AM CDT Gender Identity Male 03/27/2022 11:34 AM CDT Sexual Orientation Straight 03/27/2022 11 :34 AM CDT documented as of this encounter Miscellaneous Notes * Telephone Encounter - Karie Jones RN - 07/07/2019 5:43 PM CST Requested pt to come to clinic after CT scan on the and give a urine spec.Verbalized understanding. OFFICE WORKER documented in this encounter Plan of Treatment Upcoming Encounters Date Type Department Care Team (Late st Contact Info) Description 08/26/2024 11:00 AM CASH OFFICE WORKER Office Visit [facility] - Pulmonology [address] [place] [address], [place] [address] Andrew Francis MD [address] [place] [address] [address] DIV OF PULMONARY/[place] [address] documented as of this encounter Visit Diagnoses Not on filedocumented in this encounter Care Teams Sports Complex Attendant Relationship Specialty Start Date End Date Ran Nuñez MD [address] [place] [address] PCP - General Family Medicine 03/22/19 12/22/20 Hillary Apple MD [address] [place] [address] Hematology and Oncology 03/17/19 Bill Ferrera MD [address] [place] [address] Hematology and Oncology 03/17/19 08/27/21 Tony Dumont MD [address] [place] [address] Hematology and Oncology 03/17/19 Shalini Segal MD [address] [place] [address] Hematology and Oncology 03/17/19 09/29/19 Karie Jones, RN Registered Nurse 03/17/19 09/21/19 Maryjo Reinoso LCSW Educational Recruiter 03/17/19 Madyson Clay, PharmD 03/17/19 Dana Lala, SCRAP MATERIALS BUYER-GOLD LETTERER [address] [facility] 2nd [place] [address] Oncology 03/17/19 Mckinley Silver PA-C [address] [place] [address] Physician Weather Forecaster 03/17/19 09/08/19 Tiffanie Nguyen, SCRAP MATERIALS BUYER-FIXTURE DESIGNER [address] [place] [address] Family Medicine 03/17/19 Stephanie Mahoney, RN Registered Nurse 03/17/19 10/29/21 Alycia Galvan, ROSEMARY 03/17/19 10/29/21 Cesar Tavares MD [address] [place] [address] Referring Physician Medical Oncology 03/23/19 Karie Jones, RN Registered Nurse 06/08/19 10/29/21 documented as of this encounter
--- OUTSIDE RECORDS SUMMARY | 2024-08-18 00:35 | XMS_ITS | Encounter Summary ---
Author Organization [facility] Address [address] [facility] [place] [address] Care Team Providers Care Slate Mixer Name Role Phone Hillary Apple MD Unavailable [phone] Bill Ferrera MD Unavailable [phone] Tony uDmont MD Unavailable [phone] Shalini Segal MD Unavailable [phone] Karie Jones RN Unavailable Unavailable Maryjo Reinoso LCSW Unavailable Unavailable Madyson Clay PharmD Unavailable Unavaila Dana Galicia HAND BLOCKER-GREIGE MENDER Unavailable [phone] Mckinley Silver PA-C Unavailable Unavail able PatrickTiffanie hammer HAND BLOCKER-TRAVEL FREIGHT AND PASSENGER AGENT Unavailable [phone] Stephanie Mahoney RN Unavailable Unavailable Alycia Galvan RN Unavailable UnavailRan Mejía MD Primary Care Provider Cesar Tavares MD Unavailable [phone] Karie Jones RN Unavailable Unavailable Encounter Details Date Type Department Care Team (Latest Contact Info) Description 08/11/2019 12:42 PM FORENSIC MEDICAL EXAMINER Hospital Encounter H PFT [address] [place] [phone] Patrick, Tiffanie Seymour APRN-TRAVEL FREIGHT AND PASSENGER AGENT [address] [place] [address] Discharge Disposition: Home or Self Care Social [...] st Contact Info) Description 08/26/2024 11:00 AM FORENSIC MEDICAL EXAMINER Office Visit [facility] - Pulmonology [address] [place] [address], [place] [address] Andrew Francis MD [address] [place] [address] OF PULMONARY/[place] [address] documented as of this encounter Procedures Procedure Name Priority Date/Time Associated Diagnosis Comments SIX MINUTE WALK Routine 08/11/2019 2:27 PM FORENSIC MEDICAL EXAMINER Pre-transplant evaluation for stem cell transplant documented in this encounter Results * SIX MINUTE WALK (08/11/2019 2:27 PM FORENSIC MEDICAL EXAMINER) Impressions Apolinar Ramos MD - 08/11/2019 2:27 PM FORENSIC MEDICAL EXAMINER [facility] DEPARTMENT OF PULMONARY, CRITICAL CARE, AND SLEEP [...] Pulmonary, Critical Care, & Sleep Medicine [facility] Beeper #:[phone] I have personally reviewed the pulmonary function test data and made adjustment to the interpretation where necessary. Apolinar Ramos MD 08/12/2019 Narrative Apolinar Ramos MD - 08/11/2019 2:27 PM FORENSIC MEDICAL EXAMINER Moon Nance MD ? 08/11/2019 ??4:38 PM Procedure Note Moon Nance MD - 08/11/2019 2:27 PM CST Images from the original note were not included. Tiffanie Seymour Patrick HAND BLOCKER-TRAVEL FREIGHT AND PASSENGER AGENT RESPIRATORY THE RAP[facility] ORDERABLES documented in this encounter Visit Diagnoses Diagnosis Pre-transplant evaluation for stem cell transplant Pre-transplant evaluation for stem cell transplant documented in this encounter Care Teams Slate Mixer Relationship Specialty Start Date End Date Ran Nuñez MD [address] [place] [address] [place] [address] PCP - General Family Medicine 03/22/19 12/22/20 Hillary Apple MD [address] [place] [address] Hematology and Oncology 03/17/19 Bill Ferrera MD [facility] [address] [place] [address] Hematology and Oncology 03/17/19 08/27/21 Tony Dumont MD [address] [place] [address] Hematology and Oncology 03/17/19 Shalini Segal MD [address] [place] [address] Hematology and Oncology 03/17/19 09/29/19 Karie Jones, RN Registered Nurse 03/17/19 09/21/19 Maryjo Reinoso, DIRECTOR DIGITAL COMMUNICATIONS New Grad Rn 03/17/19 Madyson Clay, PharmD 03/17/19 Dana Lala APRN-GREIGE MENDER [address] [place] [address] Oncology 03/17/19 Mckinley Silver PA-C [address] [place] [address] Physician Coil Assembler 03/17/19 09/08/19 Tiffanie Nguyen, HAND BLOCKER-TRAVEL FREIGHT AND PASSENGER AGENT [address] [address] Family Medicine 03/17/19 Stephanie Mahoney, RN Registered Nurse 03/17/19 10/29/21 Alycia Galvan, ROSEMARY 03/17/19 10/29/21 Cesar Tavares MD [address] [place] [address] [place] [address] Referring Physician Medical Oncology 03/23/19 Kraie Jones, RN Registered Nurse 06/08/19 10/29/21 documented as of this encounter
--- OUTSIDE RECORDS SUMMARY | 2024-08-18 00:36 | XMS_ITS | Encounter Summary ---
Author Organization [facility] Address [address] [facility] [place] [address] Care Team Providers Care Mule Spinner Name Role Phone Hillary Apple MD Unavailable [phone] Bill Ferrera MD Unavailable [phone] Tony Dumont MD Unavailable [phone] Shalini Segal MD Unavailable [phone] Karie Jones RN Unavailable Unavailable Maryjo Reinoso LCSW Unavailable Unavailable Madyson Clay PharmD Unavailable Unavaila Dana Galicia MOWER SHARPENER-ASSISTANT GROCERY Unavailable [phone] Mckinley SilverC Unavailable Unavail able PatrickTiffanie MOWER SHARPENER-SENIOR SQL SERVER DEVELOPER Unavailable [phone] Stephanie Mahoney RN Unavailable Unavailable Alycia Galvan RN Unavailable UnavailRan Mejía MD Primary Care Provider Cesar Tavares MD Unavailable [phone] Encounter Details Date Type Department Care Team (Late st Contact Info) Description 03/22/2019 Orders Only [facility] [address] [place] [address] Patrick, Tiffanie Seymour APRN-SENIOR SQL SERVER DEVELOPER [address] [place] [address] Diffuse large B-cell lymphoma, unspecified body region [...] st Contact Info) Description 08/26/2024 11:00 AM CONTINUUM OF CARE MANAGER Office Visit [facility] - Pulmonology [address] [facility], [place] [address] Andrew Francis MD [facility] [facility] 2L DIV OF PULMONARY/[place] [address] documented as of this encounter Results * QUANTIFERON-TB GOLD PLUS 4-TUBE (03/22/2019 3:01 PM CDT) [facility] QuantiFERON Criteria Comment 03/24/2019 7:07 PM CDT [facility] ([facility]) Comment: The QuantiFERON-TB Gold Plus result is determined by subtracting the Nil value from either TB antigen (Ag) tube. The mitogen tube serves as a control for the test. QuantiFERON TB1 Ag Value 0.03 IU/mL 03/24/2019 7:07 PM CDT [facility] ([facility]) QuantiFERON TB2 Ag Value 0.03 IU/mL 03/24/2019 7:07 PM CDT [facility] ([facility]) QuantiFERON Nil Value 0.02 IU/mL 03/24/2019 7:07 PM CDT [facility] ([facility]) QuantiFERON Mitogen Value >10.00 IU/mL 03/24/2019 7:07 PM CDT [facility] ([facility]) QuantiFERON-TB Gold Plus Negative Negative 03/24/2019 7:07 PM CDT [facility] ([facility]) Comment: The specimen received for QuantiFERON testing was incubated by the ordering institution. ??Specific procedures outlined in our Directory of Services and in the package insert for the QuantiFERON Gold (In Tube) test must be followed to enable for proper stimulation of cells for the production of interferon gamma. Blood BLOOD SPECIMEN / Unknown Venipuncture / Unknown 03/22/2019 3:01 PM CDT 03/22/2019 3:16 PM CDT Narrative [facility] ([facility]) - 03/24/2019 7:07 PM CDT Performed at: ??01 - [facility] [address], [place], [place] ??[id number] Crap Game Box Person: Constantino Linares PhD, Phone: ??[phone] Tiffanie Alvess MOWER SHARPENER-[facility] LAB - CHEMISTRY ORDERABLES [facility] ([facility]) [address] [place] [address] * HEPATITIS C ANTIBODY (03/22/2019 3:00 PM CDT) Hepatitis C Antibody Non-react robyn Non-reac tive 03/22/2019 3:59 PM CDT [facility] Comment: Hepatitis C Antibody screen [...] PM CDT 03/22/2019 3:11 PM CDT Tiffanie Seymour Patrick [facility] LAB - CHEMISTRY ORDERABLES [address] [phone] * HEPATITIS B CORE ANTIBODY (03/22/2019 3:00 PM CDT) HBc Antibody Total Non-reacti ve Non-reacti ve 03/22/2019 4:53 PM CDT [facility] Blood BLOOD SPECIMEN / Unknown Venipuncture / Unknown 03/22/2019 3:00 PM CDT 03/22/2019 3:11 PM CDT Tiffanie Alvess MOWER SHARPENER-SENIOR SQL SERVER DEVELOPER LAB - CHEMISTRY ORDERABLES Performing Organization Address [facility] [place] [address], [facility] [phone] * HEPATITIS B SURFACE ANTIGEN W RFLX CONFIRMATION (03/22/2019 3:00 PM CDT) [facility] Hepatitis B Virus Surface Antigen Non-reacti ve Non-reacti ve 03/22/2019 3:58 PM CDT [facility] Blood BLOOD SPECIMEN / Unknown Venipuncture / Unknown 03/22/2019 3:00 PM CDT 03/22/2019 3:10 PM CDT Tiffanie Alvess MOWER SHARPENER-SENIOR SQL SERVER DEVELOPER LAB - CHEMISTRY ORDERABLES Performing Organization Address [facility] [place] [address], [facility] [phone] * (ABNORMAL) HERPES SIMPLEX 1+2 AB IGG SPEC RFLX HSV2 (03/22/2019 3:00 PM CDT) [facility] Herpes Simplex Virus I Antibody IgG Type Specific Index 1.56(H) 0.00 - 0.90 index 03/23/2019 8:12 AM CDT [facility] ([facility]) Comment: ? Negative ?<0.91 ? Equivocal 0.91 - 1.09 ? Positive ?>1.09 Note: Negative indicates no antibodies detected to HSV-1. Equivocal may suggest early infection. ??If clinically appropriate, retest at later date. Positive indicates antibodies detected to HSV-1. Herpes Simplex Virus 2 Antibody IgG Type Specific <0.91 0.00 - 0.90 index 03/23/2019 8:12 AM CDT [facility] ([facility]) Comment: ? Negative ?<0.91 ? Equivocal 0.91 - 1.09 ? Positive ?>1.09 Note: Negative indicates no antibodies detected to HSV-2. Equivocal may suggest early infection. ??If clinically appropriate, retest at later date. Positive indicates antibodies detected to HSV-2. Blood BLOOD SPECIMEN / Unknown Venipuncture / Unknown 03/22/2019 3:00 PM CDT 03/22/2019 3:10 PM CDT Narrative [facility] ([facility]) - 03/23/2019 8:12 AM CDT Performed at: ??01 - [facility] [address] [place], [place] ??[phone] Crap Game Box Person: Constantino Linares PhD, Phone: ??[phone] Tiffanie Nguyen APRN-SENIOR SQL SERVER DEVELOPER LAB - SEROLOGY ORDERABLES Performing Organization Address City/State/[facility] Co de Phone Number [facility] ([facility]) [address] [place] [address], [facility] * HIV-1 HIV-2 ANTIGEN/ANTIBODY (03/22/2019 3:00 PM CDT) HIV Antigen/Antibod y 1 & 2 Non-reacti ve Non-react robyn 03/22/2019 3:59 PM CDT [facility] Comment: Neither HIV-1 p24 Antigen nor HIV-1/HIV-2 Antibodies are detected. ? Blood BLOOD SPECIMEN / Unknown Venipuncture / Unknown 03/22/2019 3:00 PM CDT 03/22/2019 3:11 PM CDT Tiffanie Nguyen [facility] LAB - HEMATOLOG Y ORDERABLES Performing Organization Address [facility]/ZIP Co de Phone Number [address] [phone] * TYPE + SCREEN PANEL (03/22/2019 3:00 PM CDT) Antibody Screen NEG 9 4:07 PM CDT [facility] ABO Rh A POS 03/22/2019 4:07 PM CDT [facility] Blood Bank BLOOD SPECIMEN / Unknown Venipuncture / Unknown 03/22/2019 3:00 PM CDT 03/22/2019 3:24 PM CDT Tiffanie Nguyen [facility] LAB - BLOOD BAN K ORDERABLES Performing Organization Address [facility]/ZIP Co de Phone Number [facility] [address] [place] [address] * IGM BLOOD (03/22/2019 3:00 PM CDT) IgM 24 22 - 293 mg/dL 03/22/2019 3:48 PM CDT [facility] Blood BLOOD SPECIMEN / Unknown Venipuncture / Unknown 03/22/2019 3:00 PM CDT 03/22/2019 3:10 PM CDT Tiffanie Alvess [facility] LAB - CHEMISTRY ORDERABLES Performing Organization Address City/[facility]/ZIP Co de Phone Number [address] [phone] * (ABNORMAL) IGG BLOOD (03/22/2019 3:00 PM CDT) IgG 363(L) 540-1,822 mg/dL 03/22/2019 3:48 PM CDT [facility] Blood BLOOD SPECIMEN / Unknown Venipuncture / Unknown 03/22/2019 3:00 PM CDT 03/22/2019 3:10 PM CDT Laralamar Alvess [facility] LAB - CHEMISTRY ORDERABLES Performing Organization Address [facility]/[place] [address], [facility] [phone] * (ABNORMAL) IGA BLOOD (03/22/2019 3:00 PM CDT) [facility] IgA 84(L) 87 - 534 mg/dL 03/22/2019 3:38 PM CDT [facility] Blood BLOOD SPECIMEN / Unknown Venipuncture / Unknown 03/22/2019 3:00 PM CDT 03/22/2019 3:11 PM CDT Tiffanie Nguyen [facility] - CHEMISTRY ORDERABLES Performing Organization Address [facility] [place] [address], [facility] [phone] * (ABNORMAL) CYTOMEGALOVIRUS ANTIBODY IGG BLOOD (03/22/2019 3:00 PM CDT) [facility] Cytomegalovirus Antibody IgG 1.00(H) 0.00 - 0.59 U/mL 03/24/2019 7:08 AM CDT [facility] ([facility]) Comment: ? Negative ?<0.60 ? Equivocal ?? 0.60 - 0.69 ? Positive ?>0.69 Blood BLOOD SPECIMEN / Unknown Venipuncture / Unknown 03/22/2019 3:00 PM CDT 03/22/2019 3:11 PM CDT Narrative [facility] ([facility]) - 03/24/2019 7:08 AM CDT Performed at: ??01 - [facility] [address] ??[id number] Crap Game Box Person: Constantino Linares PhD, Phone: ??[phone] Tiffanie Nguyen [facility] LAB - CHEMISTRY ORDERABLES [facility] ([facility]) [address] [place] [address] * MAGNESIUM BLOOD (03/22/2019 3:00 PM CDT) Magnesium 1.9 1.6 - 2.6 mg/dL 03/22/2019 3:36 PM CDT [facility] Blood BLOOD SPECIMEN / Unknown Venipuncture / Unknown 03/22/2019 3:00 PM CDT 03/22/2019 3:10 PM CDT Tiffanie Nguyen [facility] LAB - CHEMISTRY ORDERABLES Performing Organization Address City/[facility]/ZIP Co de Phone Number [address] [phone] * (ABNORMAL) PHOSPHORUS BLOOD (03/22/2019 3:00 PM CDT) Phosphorus 5.4(H) 2.3 - 4.7 mg/dL 03/22/2019 3:34 PM CDT [facility] Blood BLOOD SPECIMEN / Unknown Venipuncture / Unknown 03/22/2019 3:00 PM CDT 03/22/2019 3:10 PM CDT Tiffanie Nguyen [facility] LAB - CHEMISTRY ORDERABLES [address] [phone] * (ABNORMAL) COMPREHENSIVE METABOLIC PANEL (03/22/2019 3:00 PM CDT) BUN 22 7 - 26 mg/dL 03/22/2019 3:36 PM CDT [facility] Creatinine 1.2 0.6 - 1.2 mg/dL 03/22/2019 3:36 PM CDT [facility] Sodium 140 136 - 145 mmol/L 03/22/2019 3:36 PM [facility] Potassium 4.7(H) 3.5 - 4.5 mmol/L 03/22/2019 3:36 PM [facility] Chloride 106 98 - 107 mmol/L 03/22/2019 3:36 PM [facility] CO2 22 22 - 29 mmol/L 03/22/2019 3:36 PM [facility] Glucose 91 70 - 115 mg/dL 03/22/2019 3:36 PM [facility] Calcium 9.6 8.4 - 10.2 mg/dL 03/22/2019 3:36 PM [facility] Protein Total 6.5 6.0 - 8.3 g/dL 03/22/2019 3:36 PM [facility] Albumin 4.1 3.4 - 5.0 g/dL 03/22/2019 3:36 PM [facility] Bilirubin Total 0.3 0.2 - 1.2 mg/dL 03/22/2019 3:36 PM [facility] Alkaline Phosphatase 125 40 - 150 Units/L 03/22/2019 3:36 PM [facility] ALT 22 0 - 55 Units/L 03/22/2019 3:36 PM [facility] AST 20 5 - 34 Units/L 03/22/2019 3:36 PM [facility] Anion Gap 17 8 - 18 03/22/2019 3:36 PM [facility] BUN/Creatinine Ratio 18 7 - 23 03/22/2019 3:36 PM [facility] Osmolality Calculated 293 270 - 300 mOsm/kg 03/22/2019 3:36 PM [facility] Albumin/Globulin Ratio 1.7 1.1 - 2.3 03/22/2019 3:36 PM [facility] eGFR >60 >60 mL/min/1.7 3 m2 03/22/2019 3:36 PM [facility] Blood BLOOD SPECIMEN / Unknown Venipuncture / Unknown 03/22/2019 3:00 PM CDT 03/22/2019 3:10 PM T Tiffanie Nguyen MOWER SHARPENER-SENIOR SQL SERVER DEVELOPER LAB - CHEMISTRY ORDERABLES [facility] [address] [phone] * (ABNORMAL) CBC WITH DIFFERENTIAL (03/22/2019 3:00 PM CDT) WBC 3.0(L) 3.5 - 10.5 10? 3 /uL 03/22/2019 3:25 PM T [facility] RBC 4.46 4.30 - 5.70 10? 6 /uL 03/22/2019 3:25 PM [facility] Hemoglobin 11.6(L) 13.5 - 17.5 g/dL 03/22/2019 3:25 PM [facility] Hematocrit 35.6(L) 39.0 - 50.0 % 03/22/2019 3:25 PM [facility] MCV 79.8(L) 81.0 - 97.0 fL 03/22/2019 3:25 PM [facility] MCH 26.0(L) 28.0 - 34.0 pg 03/22/2019 3:25 PM [facility] MCHC 32.6 32.0 - 36.0 g/dL 03/22/2019 3:25 PM [facility] Platelet Count 59(L) 150 - 400 10? 3 /uL 03/22/2019 3:25 PM [facility] RDW-SD 39.7 36.0 - 50.0 fL 03/22/2019 3:25 PM [facility] RDW-CV 13.8 11.2 - 14.8 % 03/22/2019 3:25 PM [facility] MPV 10.2 9.3 - 12.8 fL 03/22/2019 3:25 PM [facility] nRBC Absolute 0.00 0 10? 3 /uL 03/22/2019 3:25 PM [facility] nRBC Auto 0.0 0 /100 WBC 03/22/2019 3:25 PM [facility] Neutrophils % 50.7 35.0 - 70.0 % 03/22/2019 3:25 PM [facility] Lymphocytes % 36.5 19.7 - 55.1 % 03/22/2019 3:25 PM [facility] Monocytes % 6.4 3.0 - 15.0 % 03/22/2019 3:25 PM CDT [facility] Eosinophils % 5.1 0.0 - 6.0 % 03/22/2019 3:25 PM CDT [facility] Basophil % 1.0 0.0 - 1.5 % 03/22/2019 3:25 PM CDT [facility] Neutrophils Absolute 1.5(L) 1.6 - 7.0 10? 3 /uL 03/22/2019 3:25 PM CDT [facility] Lymphocyte Absolute 1.1 0.8 - 2.9 10? 3 /uL 03/22/2019 3:25 PM CDT [facility] Monocytes Absolute 0.19 0.14 - 0.66 10? 3 /uL 03/22/2019 3:25 PM CDT [facility] Eosinophils Absolute 0.15 0.00 - 0.45 10? 3 /uL 03/22/2019 3:25 PM CDT [facility] Basophils Absolute 0.03 0.00 - 0.06 10? 3 /uL 03/22/2019 3:25 PM CDT [facility] Immature Granulocytes % 0.3 0.0 - 1.0 % 03/22/2019 3:25 PM CDT [facility] Blood BLOOD SPECIMEN / Unknown Venipuncture / Unknown 03/22/2019 3:00 PM CDT 03/22/2019 3:10 PM CDT [facility] LAB - HEMATOLOG Y ORDERABLES Performing Organization Address City/State/[facility] Co de Phone Number [address] [phone] * LDH BLOOD (03/22/2019 3:00 PM CDT) [facility] Total 231 125 - 243 Units/L 03/22/2019 3:36 PM CDT [facility] Blood BLOOD SPECIMEN / Unknown Venipuncture / Unknown 03/22/2019 3:00 PM CDT 03/22/2019 3:10 PM CDT Tiffanie Nguyen MOWER SHARPENER-SENIOR SQL SERVER DEVELOPER LAB - CHEMISTRY ORDERABLES [id number] [place] [address], [facility] [phone] * (ABNORMAL) URIC ACID BLOOD (03/22/2019 3:00 PM CDT) Uric Acid 8.3(H) 2.6 - 7.2 mg/dL 03/22/2019 3:34 PM CDT [facility] Blood BLOOD SPECIMEN / Unknown Venipuncture / Unknown 03/22/2019 3:00 PM CDT 03/22/2019 3:10 PM CDT Tiffanie Nguyen MOWER SHARPENER-SENIOR SQL SERVER DEVELOPER LAB - CHEMISTRY ORDERABLES [address] [phone] documented in this encounter Visit Diagnoses Diagnosis Diffuse large B-cell lymphoma, unspecified body region (HCC)- Primary documented in this encounter Care Teams Mule Spinner Relationship Specialty Start Date End Date Ran Nuñez MD [address] [place] [address] PCP - General Family Medicine 03/22/19 12/22/20 Hillary Apple MD [address] [place] [address] Hematology and Oncology 03/17/19 Bill Ferrera MD [address] [place] [address] Hematology and Oncology 03/17/19 08/27/21 Tony Dumont MD [address] [place] [address] Hematology and Oncology 03/17/19 Shalini Segal MD [facility] [place] [address] Hematology and Oncology 03/17/19 09/29/19 Karie Jones, RN Registered Nurse 03/17/19 09/21/19 Maryjo Reinoso, SOLID GLASS ROD DOWEL MACHINE OPERATOR Ip/Mosaic Technician 03/17/19 Madyson Clay, PharmD 03/17/19 Dana Lala, MOWER SHARPENER-ASSISTANT GROCERY [address] [facility] [address] [place] [address] Oncology 03/17/19 Mckinley Silver PA-C [address] [facility] [address] [place] [address] Physician Brake Drum Lathe Operator 03/17/19 09/08/19 Tiffanie Nguyen, MOWER SHARPENER-SENIOR SQL SERVER DEVELOPER [address] [place] [address] Family Medicine 03/17/19 Stephanie Mahoney, RN Registered Nurse 03/17/19 10/29/21 Alycia Galvan, RN 03/17/19 10/29/21 Cesar Tavares MD [address] [place] [address] [place] [address] Referring Physician Medical Oncology 03/23/19 documented as of this encounter
--- OUTSIDE RECORDS SUMMARY | 2024-08-18 00:36 | XMS_ITS | Encounter Summary ---
Author Organization [facility] Address [address] [facility] [place] [address] Care Team Providers Care Senior Sas Developer Name Role Phone Hillary Apple MD Unavailable [phone] Bill Ferrera MD Unavailable [phone] Tony Dumont MD Unavailable [phone] Shalini Segal MD Unavailable [phone] Karie Jones RN Unavailable Unavailable Maryjo ReinosoW Unavailable Unavailable Madyson Clay PharmD Unavailable Unavaila Dana Galicia ROTARY ROCK DRILLING MACHINE OPERATOR-NUT FORMER Unavailable [phone] Mckinley Silver PA-C Unavailable Unavail able Patrick, Lara ROTARY ROCK DRILLING MACHINE OPERATOR-FIELD IRRIGATION WORKER Unavailable [phone] Stephanie Mahoney RN Unavailable Unavailable Alycia Galvan RN Unavailable UnavailRan Mejía MD Primary Care Provider Cesar Tavares MD Unavailable [phone] Karie Jones RN Unavailable Unavailable Encounter Details Date Type Department Care Team (Late st Contact Info) Description 06/09/2019 1:00 PM DISTRIBUTION FIELD ENGINEER Procedure visit [facility] [address] [place], [place] [id number] Hillary Apple MD [address] [facility] [place] [place] [address] Splenomegaly Social History Tobacco Use Types Packs/Day Years Used Date Smoking Tobacco: Never Assessed Sex and Gender Information Value Date Recorded Sex Assigned at Male 03/27/2022 11:34 AM CDT Gender Identity Male 03/27/2022 11:34 AM CDT Sexual Orientation Straight 03/27/2022 11 :34 AM CDT documented as of this encounter Last Filed Vital Signs Vital Sign Reading Time Taken Comments Blood Pressure 150/90 06/09/2019 1:07 PM DISTRIBUTION FIELD ENGINEER Pulse 73 06/09/2019 1:07 PM DISTRIBUTION FIELD ENGINEER Temperature 37.1 ??C (98.7 ??F) 06/09/2019 1:07 PM CS T Respiratory Rate 18 06/09/2019 1:07 PM DISTRIBUTION FIELD ENGINEER Oxygen Saturation 96% 06/09/2019 1:07 PM DISTRIBUTION FIELD ENGINEER Inhaled Oxygen Concentration - - Weight 120.3 kg (265 lb 3.2 oz) 06/09/2019 1:07 PM DISTRIBUTION FIELD ENGINEER Height 170.2 cm (5' 7 ) 06/09/2019 1:07 PM DISTRIBUTION FIELD ENGINEER Body Mass Index 41.54 06/09/2019 1:07 PM DISTRIBUTION FIELD ENGINEER documented in this encounter Progress Notes * Skylar Peterson, RN - 06/09/2019 1:05 PM CST Diagnosis: Splenomegaly RN verified patient has no implanted devices and NPO for prior 3 hours. Vital signs taken, procedure explained and consent signed. Date of Exam: 06/09/2019 Liver Stiffness: (E, kPa) median: 3.7 IQR (interquartile range): 0.4 IQR/Median% (ideally < 30%): 11 CAP (controlled attenuation parameter): 400 Technical Difficulty: None Ordering Provider: Tiffanie Nguyen CMO & PRESIDENT Phone Fax Fibroscan interpretation: I have personally [...] change as additional supporting data becomes available. [email or web address] RIBUTION FIELD ENGINEER documented in this encounter Procedure Notes * Travon Merchant MD - 06/11/2019 4:49 PM CSTAssociated Order(s): PROC FIBROSCAN Procedure(s): NV LIVER ELASTOGRAPHY Pre-Procedure Diagnose(s): Splenomegaly Diagnosis: Splenomegaly RN verified patient has no implanted devices and NPO for prior 3 hours. Vital signs taken, procedure explained and consent signed. Date of Exam: 06/09/2019 Liver Stiffness: (E, kPa) median: 3.7 IQR (interquartile range): 0.4 IQR/Median% (ideally < 30%): 11 CAP (controlled attenuation parameter): 400 Technical Difficulty: None Ordering Provider: Tiffanie Nguyen CMO & PRESIDENT Phone Fax Fibroscan interpretation: I have personally [...] change as additional supporting data becomes available. [email or web address] RIBUTION FIELD ENGINEER documented in this encounter Plan of Treatment Upcoming Encounters Date Type Department Care Team (Late st Contact Info) Description 08/26/2024 11:00 AM DISTRIBUTION FIELD ENGINEER Office Visit [facility] - Pulmonology [address] [place] [address], [place] [address] Andrew Francis MD [address] [place] [address] DIV OF PULMONARY/[place] [address] documented as of this encounter Procedures Procedure Name Priority Date/Time Associated Diagnosis Comments NV LIVER ELASTOGRAPHY Routine 06/11/2019 4:49 PM DISTRIBUTION FIELD ENGINEER Splenomegaly documented in this encounter Results * NV LIVER ELASTOGRAPHY (06/11/2019 4:49 PM DISTRIBUTION FIELD ENGINEER) Narrative Travon Merchant MD - 06/11/2019 4:49 PM DISTRIBUTION FIELD ENGINEER Travon Merchant MD ? 06/11/2019 ??4:49 PM Diagnosis: Splenomegaly RN verified patient has no implanted devices and NPO for prior 3 hours. Vital signs taken, procedure explained and consent signed. Date of Exam: 06/09/2019 Liver Stiffness: (E, kPa) median: ??3.7 IQR (interquartile range): ?? 0.4 IQR/Median% (ideally < 30%): ??11 CAP (controlled attenuation parameter): ??400 Technical Difficulty: None Ordering Provider: Tiffanie Nguyen CMO & PRESIDENT Phone Fax Fibroscan interpretation: I have personally [...] change as additional supporting data becomes available. [email or web address] Tiffanie Nguyen ROTARY ROCK DRILLING MACHINE OPERATOR-FIELD IRRIGATION WORKER PROCEDURE/MINOR SURGICAL ORDERABLES documented in this encounter Visit Diagnoses Diagnosis Splenomegaly- Primary documented in this encounter Care Teams Senior Sas Developer Relationship Specialty Start Date End Date Ran Nuñez MD [address] [place] [address] PCP - General Family Medicine 03/22/19 12/22/20 Hillary Apple MD [address] [place] [address] Hematology and Oncology 03/17/19 Bill Ferrera MD [address] [place] [address] Hematology and Oncology 03/17/19 08/27/21 Tony Dumont MD [address] [place] [address] Hematology and Oncology 03/17/19 Shalini Segal MD [address] [place] [address] Hematology and Oncology 03/17/19 09/29/19 Karie Jones, RN Registered Nurse 03/17/19 09/21/19 Maryjo Reinoso, REYNA Workforce Development Specialist 03/17/19 Madyson Clay, PharmD 03/17/19 Dana Lala ROTARY ROCK DRILLING MACHINE OPERATOR-NUT FORMER [address] [place] [address] Oncology 03/17/19 Mckinley Silver PA-C [address] [place] [address] Physician Training Generalist 03/17/19 09/08/19 Tiffanie Nguyen, ROTARY ROCK DRILLING MACHINE OPERATOR-FIELD IRRIGATION WORKER [address] [address] Family Medicine 03/17/19 Stephanie Mahoney RN Registered Nurse 03/17/19 10/29/21 Alycia Galvan, ROSEMARY 03/17/19 10/29/21 Cesar Tavares MD [address] [place] [address] Referring Physician Medical Oncology 03/23/19 Karie Jones, RN Registered Nurse 06/08/19 10/29/21 documented as of this encounter
--- OUTSIDE RECORDS SUMMARY | 2024-08-18 00:36 | XMS_ITS | Encounter Summary ---
Author Organization [facility] Address [address] [place] [address] Care Team Providers Care Wafer Fabricator Name Role Phone Hillary Apple MD Unavailable [phone] Bill Ferrera MD Unavailable [phone] Tony Dumont MD Unavailable [phone] Shalini Segal MD Unavailable [phone] Karie Jones RN Unavailable Unavailable Maryjo Reinoso LCSW Unavailable Unavailable Madyson Clay PharmD Unavailable Unavaila Dana Galicia SALES SUPPORT REPRESENTATIVE-JUDGE CLERK Unavailable + [phone] Mckinley Silver-C Unavailable Unavail able Patrick, Tiffanie [place] SALES SUPPORT REPRESENTATIVE-BLOCK OUT MACHINE OPERATOR Unavailable [phone] Stephanie Mahoney RN Unavailable Unavailable Alycia Galvan RN Unavailable UnavailRan Mejía MD Primary Care Provider Cesar Tavares MD Unavailable [phone] Karie Jones RN Unavailable Unavailable Joy Bob Unavailable Fanta Addison Weinstein PharmD Unavailable Unavailab Alida Chang SALES SUPPORT REPRESENTATIVE-BLOCK OUT MACHINE OPERATOR Primary Care Provider Ran Nuñez MD Primary Care Provider Tony Dumont MD Unavailable [phone] Shalini Segal MD Unavailable [phone] Stefanie Burns RN Unavailable Unavaila Fatemeh Kelly RN Unavailable Unavailable Glenn Hernandez MD Unavailable Chandana Lu MD Unavailable Encounter Details Date Type Department Care Team (Late Contact Info) Description 03/23/2019 Lab Requisition [facility] Care Pathology Lab [address] [place] [address] Ulises Howell MD [address] [place], [place] [id number] Non-Hodgkin lymphoma (HCC) Social History Tobacco Use Types Packs/Day [...] (Late Contact Info) Description 08/26/2024 11:00 AM DUCT LAYER Office Visit [facility] - Pulmonology [address] [facility], [place] [address] Andrew Francis MD [address] [place] [address] 2L DIV OF PULMONARY/[place] [address] documented as of this encounter Procedures Procedure Name Priority Date/Time Associated Diagnosis Comments FLOW CYTOMETRY BONE MARROW Routine 03/23/2019 10:40 AM CDT Non-Hodgkin lymphoma documented in this encounter Results * FLOW CYTOMETRY BONE MARROW (03/23/2019 10:40 AM CDT) Case Report Flow Cytometry ?Case: [id number] ? Authorizing Provider: ??Ulises Howell MD ?Collected: ? 03/23/2019 10:40 AM ? Ordering Location: ? [facility] Pathology Lab ? Received: ?03/23/2019 01:04 PM ? Pathologist: ? Alecia Neri MD ? Specimen: ?Bone Marrow ? 03/24/2019 11:14 AM [facility] Final Diagnosis Bone marrow, flow cytometric immunophenotypic analysis: - CD5-negative, [id number] mature B-cell lymphoma. - See interpretation. 03/24/2019 11:14 AM [facility] Flow Cytometry Interpretation The bone marrow specimen has a viability of 95%. The lymphocyte, dim CD45, monocyte, and granulocyte egan are normal in relative proportion. Within the lymphocyte region, there is a B-cell population identified that expresses CD19, CD20, CD11c, CD45, and surface kappa light chains. These cells show no co-expression of CD5, CD10, CD23, CD34, CD25, or CD103. This population comprises 3% of all events. A bone marrow aspirate smear prepared from the flow cytometry specimen is reviewed for quality systems specialist purposes. In summary, the bone marrow specimen shows evidence of involvement by a CD5-negative, [id number]-juvzjzsj mature B-cell lymphoma. Correlation with additional clinical information, the concurrent bone marrow biopsy specimen, and relevant cytogenetic/molecu lar testing is required for further classification. KR 03/24/2019 11:14 AM [facility] Flow Cytometry Results Differential Result Comment Flow Cell Count /uL 30,000 Total Viability % 95.0 Lymphocytes % 11 Dim CD45 Region % 3 Monocytes % 3 Granulocytes % 80 03/24/2019 11:14 AM [facility] Reason for test Non-Hodgkin lymphoma 202.80 03/24/2019 11:14 AM [facility] Client Specimen ID # [id number] 03/24/2019 11:14 AM [facility] Number of markers 13 were performed. A-1 Flow CD3 A-3 Flow CD10 A-5 Flow CD20 A-6 Flow CD23 A-11 Flow CD25 A-12 Flow CD103 A-13 Flow CD11c A-2 Flow CD5 A-4 Flow CD19 A-7 Flow CD34 A-8 Flow CD45 A-9 [place]+CD19+ A-10 Lambda+CD19+ 03/24/2019 11:14 AM [facility] Disclaimer Test performed at [facility], [address] [place] [address], [facility]. *The established laboratory minimum viability [...] qualified to perform high complexity clinical testing. 03/24/2019 11:14 AM [facility] Embedded Images 9 11:14 AM [facility] Pathology/Cytolo gy BONE MARROW SPECIMEN / Unknown 03/23/2019 10:40 AM CDT 03/23/2019 1:04 PM CDT Ulises Howell MD LAB - PATHOLOGY/CYTO LOGY ORDERABLES [facility] [address] [place] [address]. [address] [phone] documented in this encounter Visit Diagnoses Diagnosis Non-Hodgkin lymphoma (HCC) Other malignant lymphomas, unspecified site, extranodal and solid organ sites documented in this encounter Additional Health Concerns Infection Onset Date Last Indicated Resolved Time COVID-19 Under Investigation 02/25/2020 02/25/2020 02/26/2020 4:19 PM CDT COVID-19 Under Investigation 02/27/2020 02/27/2020 02/27/2020 4:07 PM CDT COVID-19 Under Investigation 03/03/2020 03/04/2020 03/05/2020 6:23 AM CDT COVID-19 Under Investigation 03/06/2020 03/06/2020 03/07/2020 11:57 AM CDT COVID-19 Confirmed 03/06/2020 07/14/2020 0 4:33 AM DUCT LAYER COVID-19 Under Investigation 03/07/2020 03/07/2020 03/09/2020 8:54 AM CDT COVID-19 Under Investigation 03/29/2020 03/29/2020 03/30/2020 9:42 AM CDT COVID-19 Confirmed 08/31/2020 08/31/2020 1 4:34 AM DUCT LAYER COVID-19 Confirmed 09/28/2020 09/28/2020 1 4:33 AM DUCT LAYER COVID-19 Under Investigation 11/16/2020 11/16/2020 11/16/2020 6:52 PM CDT COVID-19 Confirmed 11/16/2020 11/16/2020 1 4:35 AM CDT COVID-19 Under Investigation 12/20/2020 12/20/2020 12/20/2020 6:23 PM CDT COVID-19 Under Investigation 04/21/2021 04/21/2021 2021 6:42 AM CDT documented as of this encounter Care Teams Wafer Fabricator Relationship Specialty Start Date End Date Ran Nuñez MD [address] [place] [address] PCP - General Family Medicine 03/22/19 12/22/20 Alida Marshall APRN-BLOCK OUT MACHINE OPERATOR [address] [facility] [place] [address] PCP - General Family Medicine 12/23/20 08/29/21 Ran Nuñez MD [address] [place] [address] PCP - General Family Medicine 08/30/21 [place] [address] [facility] [place] [address] PCP - [facility] 03/04/23 08/21/23 Hillary Apple MD [facility] [place] [address] Hematology and Oncology 03/17/19 Bill Ferrera MD [facility] [place] [address] Hematology and Oncology 03/17/19 08/27/21 Tony Dumont MD [facility] [place] [address] Hematology and Oncology 03/17/19 Shalini Segal MD [address] [place] [address] Hematology and Oncology 03/17/19 09/29/19 Karie Jones, ROSEMARY Registered Nurse 03/17/19 09/21/19 Maryjo Reinoso LCSW Education Department Chair 03/17/19 Madyson Clay, PharmD 03/17/19 Dana Lala, SALES SUPPORT REPRESENTATIVE-JUDGE CLERK [address] 2nd [place] [address] Oncology 03/17/19 Mckinley Silver PA-C [address] [place] [address] Physician Dry Lumber Grader 03/17/19 09/08/19 Tiffanie Nguyen APRN-BLOCK OUT MACHINE OPERATOR [address] [place] [address] Family Medicine 03/17/19 Stephanie Mahoney, RN Registered Nurse 03/17/19 10/29/21 Alycia Galvan, ROSEMARY 03/17/19 10/29/21 Cesar Tavares MD [place] [address] Referring Physician Medical Oncology 03/23/19 Karie Jones, RN Registered Nurse 06/08/19 10/29/21 Joy Bob 09/22/19 Addison Shea, PharmD Pharmacist 09/22/19 10/29/21 Tony Dumont MD [address] [place] [address] Hematology and Oncology 10/30/21 Shalini Segal MD [address] [facility] [place] [address] Art Historian/Oncologis t Hematology and Oncology 10/30/21 Stefanie Burns, RN Registered Nurse 10/30/21 Fatemeh Bolaños, RN Registered Nurse 10/30/21 Chandana Lu MD [address] [place] [address] Orthopedic Surgery 03/30/24 documented as of this encounter
--- OUTSIDE RECORDS SUMMARY | 2024-08-18 00:36 | XMS_ITS | Encounter Summary ---
Author Organization [facility] Address [address] [place] [address] Care Team Providers Care Harness Installer Name Role Phone Hillary Apple MD Unavailable [phone] Bill Ferrera MD Unavailable [phone] Tony Dumont MD Unavailable [phone] Shalini Segal MD Unavailable [phone] Karie Jones RN Unavailable Unavailable Maryjo Reinoso LCSW Unavailable Unavailable Madyson Clay PharmD Unavailable Unavaila Dana Galicia GLOVE CUTTER-FABRICATION DEPARTMENT SUPERVISOR Unavailable [phone] Mckinley SilverC Unavailable Unavail able PatrickTiffanie APRN-BEAD FLIPPER Unavailable [phone] Stephanie Mahoney RN Unavailable Unavailable Alycia Galvan RN Unavailable UnavailRan Mejía MD Primary Care Provider Cesar Tavares MD Unavailable [phone] Reason for Referral * Radiology Services (Routine) - Closed Specialty Diagnoses / Procedures Referred By Contjohn t Referred To Contact CT Scan Diagnoses Diffuse large B-cell lymphoma, unspecified body region (HCC) Procedures CT ABDOMEN PELVIS W CONTRAST Patrick, Tiffanie [place] APRN-BEAD FLIPPER [address] [place] [address] [facility] [address] [place] [address] Referral ID Status Reason Start Date Expiration Date Visits Re quested Visits Authorized [id number] Closed 05/24/2019 11/20/2019 1 1 Encounter Details Date Type Department Care Team (Late Contact Info) Description 05/24/2019 Orders Only [facility] CLINIC [address] [place] [address] Tiffanie Nguyen APRN-CNP [address] [place] [address] Diffuse large B-cell lymphoma, unspecified body region [...] (Late Contact Info) Description 08/26/2024 11:00 AM TENT WORKER Office Visit [facility] - Pulmonology [address] [place] [address], [facility] [place] [id number] Andrew Francis MD [address] [place] [address] OF PULMONARY/[place] [address] documented as of this encounter Results * CT ABDOMEN PELVIS W CONTRAST (06/09/2019 3:37 PM TENT WORKER) Anatomical Region Laterality Modality Abdomen, Pelvis Computed Tomogra phy 06/09/2019 3:59 PM TENT WORKER Impressions 06/10/2019 5:08 PM TENT WORKER IMPRESSION: 1. The spleen is enlarged, measuring 17.9 cm craniocaudally. This is decreased from 03/02/2019. 2. No acute process identified in the abdomen or pelvis. Dictated by Love Rowland MD (radiology technician). I, Dr. NARGIS VELAZQUEZ M.D. have personally reviewed and interpreted this examination/study. This report was electronically signed by NARGIS VELAZQUEZ M.D. ??on 06/10/2019 5:08 PM . Narrative 06/10/2019 5:08 PM TENT WORKER EXAMINATION: Computed tomography (CT) of the abdomen [...] at this level. Procedure Note Ana Laura Velazquez MD - 06/10/2019 EXAMINATION: Computed tomography (CT) [...] Love Rowland MD (radiology technician). I, Dr. NARGIS VELAZQUEZ M.D. have personally reviewed and interpretedthis examination/study. This report was electronically signed by NARGIS VELAZQUEZ M.D. on 06/10/2019 5:08 PM . Tiffanie Nguyen GLOVE CUTTER-BEAD FLIPPER CT ORDERABLES documented in this encounter Visit Diagnoses Diagnosis Diffuse large B-cell lymphoma, unspecified body region (HCC)- Primary Diffuse large B-cell lymphoma, unspecified body region (HCC) documented in this encounter Care Teams Harness Installer Relationship Specialty Start Date End Date Ran Nuñez MD [place] [address] PCP - General Family Medicine 03/22/19 12/22/20 Hillary Apple MD [address] [place] [address] Hematology and Oncology 03/17/19 Bill Ferrera MD [address] [place] [address] Hematology and Oncology 03/17/19 08/27/21 Tony Dumont MD [address] [place] [address] Hematology and Oncology 03/17/19 Shalini Segal MD [address] [place] [address] Hematology and Oncology 03/17/19 09/29/19 Karie Jones, ROSEMARY Registered Nurse 03/17/19 09/21/19 Maryjo Reinoso LCSW Household Coordinator 03/17/19 Madyson Clay, PharmD 03/17/19 Dana Lala, GLOVE CUTTER-FABRICATION DEPARTMENT SUPERVISOR [address] [place] [address] 2nd [place] [address] Oncology 03/17/19 Mckinley Silver PA-C [address] [place] [address] [address]nd [place] [address] Physician Paper Hanger 03/17/19 09/08/19 Tiffanie Nguyen, GLOVE CUTTER-BEAD FLIPPER [address] [place] [address] 2nd [place] [address] Family Medicine 03/17/19 Stephanie Mahoney, RN Registered Nurse 03/17/19 10/29/21 Alycia Galvan, ROSEMARY 03/17/19 10/29/21 Cesar Tavares MD [address] [place] [address] Referring Physician Medical Oncology 03/23/19 documented as of this encounter
--- OUTSIDE RECORDS SUMMARY | 2024-08-18 00:36 | XMS_ITS | Encounter Summary ---
Author Organization [facility] Address [address] [facility] [place] [address] Care Team Providers Care Paper Reeler Name Role Phone Hillary Apple MD Unavailable [phone] Bill Ferrera MD Unavailable [phone] Tony Dumont MD Unavailable [phone] Shalini Segal MD Unavailable [phone] Yaritza Jones RN Unavailable Unavailable Maryjo ReinosoW Unavailable Unavailable Madyson Clay PharmD Unavailable Unavaila Dana Galicia DYED YARN OPERATOR-DELIVERER FOOD Unavailable [phone] Mckinley SilverC Unavailable Unavail able PatrickTiffanie APRN-HANDLING TECH Unavailable [phone] Stephanie Mahoney RN Unavailable Unavailable Alycia Galvan RN Unavailable UnavailRan Mejía MD Primary Care Provider Cesar Tavares MD Unavailable [phone] Yaritza Jones RN Unavailable Unavailable Encounter Details Date Type Department Care Team (Late st Contact Info) Description 03/22/2019 Orders Only [facility] CLINIC [address] [place] [address] Patrick, Tiffanie [place] APRN-HANDLING TECH [address] [place] [address] Social History Tobacco Use Types Packs/Day Years Used Date Smoking Tobacco: Never Assessed Sex and Gender Information Value Date Recorded Sex Assigned at Male 03/27/2022 11:34 AM CDT Gender Identity Male 03/27/2022 11:34 AM CDT Sexual Orientation Straight 03/27/2022 11 :34 AM CDT documented as of this encounter Miscellaneous Notes * Addendum Note - Yaritza Jones RN - 07/08/2019 2:40 PM CSTAddended by: YARITZA JONES on: 07/08/2019 02:40 PM Modules accepted: Orders SITTING documented in this encounter Plan of Treatment Upcoming Encounters Date Type Department Care Team (Late st Contact Info) Description 08/26/2024 11:00 AM PET SITTING Office Visit [facility] Physician Group - Pulmonology [address] [place] [address], [place] [address] Andrew Francis MD [address] [place] [address] DIV OF PULMONARY/[place] [address] documented as of this encounter Visit Diagnoses Not on filedocumented in this encounter Care Teams Paper Reeler Relationship Specialty Start Date End Date Ran Nuñez MD [address] [facility] [place] [address] PCP - General Family Medicine 03/22/19 12/22/20 Hillary Apple MD [address] [place] [address] Hematology and Oncology 03/17/19 Bill Ferrera MD [address] [place] [address] Hematology and Oncology 03/17/19 08/27/21 Tony Dumont MD [facility] [place] [address] Hematology and Oncology 03/17/19 Shalini Segal MD [address] [place] [address] Hematology and Oncology 03/17/19 09/29/19 Yaritza Jones, RN Registered Nurse 03/17/19 09/21/19 Maryjo Reinoso, REYNA Director Of Cardiac Rehabilitation 03/17/19 Madyson Clay, PharmD 03/17/19 Dana Lala, DYED YARN OPERATOR-DELIVERER FOOD [facility] [facility] 2nd [place] [address] Oncology 03/17/19 Mckinley Silver PA-C [facility] 2nd [place] [address] Physician Bell Neck Hammerer 03/17/19 09/08/19 Tiffanie Nguyen, DYED YARN OPERATOR-HANDLING TECH [address] [place] [address] [place] [address] Family Medicine 03/17/19 Stephanie Mahoney, RN Registered Nurse 03/17/19 10/29/21 Alycia Galvan, ROSEMARY 03/17/19 10/29/21 Cesar Tavares MD [address] [place] [address] Referring Physician Medical Oncology 03/23/19 Yaritza Jones, RN Registered Nurse 06/08/19 10/29/21 documented as of this encounter
--- OUTSIDE RECORDS SUMMARY | 2024-08-18 00:36 | XMS_ITS | Encounter Summary ---
Author Organization [facility] Address [address] [facility] [place] [address] Care Team Providers Care Stone Carriage Operator Name Role Phone Hillary Apple MD Unavailable [phone] Bill Ferrera MD Unavailable [phone] Tony Dumont MD Unavailable [phone] Shalini Segal MD Unavailable [phone] Karie Jones RN Unavailable Unavailable Maryjo Reinoso LCSW Unavailable Unavailable Madyson Clay PharmD Unavailable Unavaila Dana Galicia STORAGE BATTERY TESTER-INVASIVE CARDIOLOGIST Unavailable [phone] Mckinley SilverC Unavailable Unavail able PatrickTiffanie STORAGE BATTERY TESTER-BORING MACHINE OPERATOR VERTICAL Unavailable [phone] Stephanie Mahoney RN Unavailable Unavailable Alycia Galvan RN Unavailable UnavailRan Mejía MD Primary Care Provider Cesar Tavares MD Unavailable [phone] Encounter Details Date Type Department Care Team (Late st Contact Info) Description 05/27/2019 Orders Only [facility] [address] [place] [address] Patrick, Tiffanie Seymour APRN-BORING MACHINE OPERATOR VERTICAL [address] [place] [address] Pre-transplant evaluation for stem cell transplant Social [...] st Contact Info) Description 08/26/2024 11:00 AM COMMERCIAL LENDING ASSISTANT Office Visit [facility] - Pulmonology [address] [place] [address], [place] [address] Andrew Francis MD [address] [place] [address] 2L DIV OF PULMONARY/[place] [address] documented as of this encounter Visit Diagnoses Diagnosis Pre-transplant evaluation for stem cell transplant- Primary documented in this encounter Care Teams Stone Carriage Operator Relationship Specialty Start Date End Date Ran Nuñez MD [address] [place] [address] PCP - General Family Medicine 03/22/19 12/22/20 Hillary Apple MD [facility] [place] [address] Hematology and Oncology 03/17/19 Bill Ferrera MD [address] [place] [address] Hematology and Oncology 03/17/19 08/27/21 Tony Dumont MD [facility] [place] [address] Hematology and Oncology 03/17/19 Shalini Segal MD [facility] [place] [address] Hematology and Oncology 03/17/19 09/29/19 Karie Jones, ROSEMARY Registered Nurse 03/17/19 09/21/19 Maryjo Reinoso, SUPERVISOR SCRAP PREPARATION Enterprise Cloud Architect 03/17/19 Madyson Clay, PharmD 03/17/19 Dana Lala, STORAGE BATTERY TESTER-INVASIVE CARDIOLOGIST [address] [place] [address] Oncology 03/17/19 Mckinley Silver PA-C [address] [place] [address] Physician Children'S Counselor 03/17/19 09/08/19 Tiffanie Nguyen, STORAGE BATTERY TESTER-BORING MACHINE OPERATOR VERTICAL [address] [place] [address] Family Medicine 03/17/19 Stephanie Mahoney, RN Registered Nurse 03/17/19 10/29/21 Alycia Galvan, ROSEMARY 03/17/19 10/29/21 Cesar Tavares MD [address] [place] [address] Referring Physician Medical Oncology 03/23/19 documented as of this encounter
--- OUTSIDE RECORDS SUMMARY | 2024-08-18 00:36 | XMS_ITS | Encounter Summary ---
Author Organization [facility] Address [address] [facility] [place] [address] Care Team Providers Care Concrete Block Mason Name Role Phone Hillary Apple MD Unavailable [phone] Bill Ferrera MD Unavailable [phone] Tony Dumont MD Unavailable [phone] Shalini Segal MD Unavailable [phone] Karie Jones RN Unavailable Unavailable Maryjo ReinosoW Unavailable Unavailable Madyson Clay PharmD Unavailable Unavaila Dana Galicia ERECTING CRANE OPERATOR-CLINICAL CODER Unavailable [phone] Mckinley Silver-C Unavailable Unavail able Patrick, Tiffanie Seymour ERECTING CRANE OPERATOR-AVIAN KEEPER Unavailable [phone] Stephanie Mahoney RN Unavailable Unavailable Alycia Galvan RN Unavailable UnavailRan Mejía MD Primary Care Provider Cesar Tavares MD Unavailable [phone] Karie Jones RN Unavailable Unavailable Encounter Details Date Type Department Care Team (Late st Contact Info) Description 06/08/2019 Telephone [facility] [address] [place] [address] Margot Seals, RN Social History Tobacco Use Types Packs/Day Years Used Date Smoking Tobacco: Never Assessed Sex and Gender Information Value Date Recorded Sex Assigned at Male 03/27/2022 11:34 AM CDT Gender Identity Male 03/27/2022 11:34 AM CDT Sexual Orientation Straight 03/27/2022 11 :34 AM CDT documented as of this encounter Miscellaneous Notes * Telephone Encounter - Margot Seals RN - 06/08/2019 3:08 PM CORPORATE SALES REPRESENTATIVE Spoke to Mr. Guillen about his fibroscan, bone marrow biopsy and CT tomorrow. He is aware of all appointments and knows he needs to be NPO for 3 hours prior to the fibroscan. He will have a reliable ride home. ORATE SALES REPRESENTATIVE documented in this encounter Plan of Treatment Upcoming Encounters Date Type Department Care Team (Late st Contact Info) Description 08/26/2024 11:00 AM CORPORATE SALES REPRESENTATIVE Office Visit [facility] - Pulmonology [address] [place] [address], [place] [address] Andrew Francis MD [address] [place] [address] 2L DIV OF PULMONARY/[place] [address] documented as of this encounter Visit Diagnoses Not on filedocumented in this encounter Care Teams Concrete Block Mason Relationship Specialty Start Date End Date Ran Nuñez MD [address] [place] [address] PCP - General Family Medicine 03/22/19 12/22/20 Hillary Apple MD [address] [place] [address] Hematology and Oncology 03/17/19 Bill Ferrera MD [address] [place] [address] Hematology and Oncology 03/17/19 08/27/21 Tony Dumont MD [address] [place] [address] Hematology and Oncology 03/17/19 Shalini Segal MD [address] [place] [address] Hematology and Oncology 03/17/19 09/29/19 Karie Jones, RN Registered Nurse 03/17/19 09/21/19 Maryjo Reinoso, PAPER CONTROL CLERK Melangeur Operator 03/17/19 Madyson Clay, PharmD 03/17/19 Dana Lala ERECTING CRANE OPERATOR-CLINICAL CODER [address] [place] [address] [address] [place] [address] Oncology 03/17/19 Mckinley Silver PA-C [address] [place] [address] [address] [place] [address] Physician Health Companion 03/17/19 09/08/19 Tiffanie Nguyen, ERECTING CRANE OPERATOR-AVIAN KEEPER [address] [place] [address] 2nd [place] [address] Family Medicine 03/17/19 Stephanie Mahoney, RN Registered Nurse 03/17/19 10/29/21 Alycia Galvan, ROSEMARY 03/17/19 10/29/21 Cesar Tavares MD [address] [place] [address] [place] [address] Referring Physician Medical Oncology 03/23/19 Karie Jones, RN Registered Nurse 06/08/19 10/29/21 documented as of this encounter
--- OUTSIDE RECORDS SUMMARY | 2024-08-18 00:36 | XMS_ITS | Encounter Summary ---
Author Organization [facility] Address [address] [facility] [address] Care Team Providers Care Food Sales Clerk Name Role Phone Hillary Apple MD Unavailable [phone] Bill Ferrera MD Unavailable [phone] Tony Dumont MD Unavailable [phone] Shalini Segal MD Unavailable [phone] Karie Jones RN Unavailable Unavailable Maryjo Reinoso LCSW Unavailable Unavailable Madyson Clay PharmD Unavailable Unavaila Dana Galicia LEGAL WRITING PROFESSOR-BUSINESS SUPPORT LIAISON Unavailable [phone] Mckinley SilverC Unavailable Unavail able PatrickTiffanie APRN-CAR SUPPLIER Unavailable [phone] Stephanie Mahoney RN Unavailable Unavailable Alycia Galvan RN Unavailable UnavailRan Mejía MD Primary Care Provider Cesar Tavares MD Unavailable [phone] Karie Jones RN Unavailable Unavailable Reason for Referral * Radiology Services (Routine) - Closed Specialty Diagnoses / Procedures Referred By Deng meraz Referred To Contact Diagnoses Splenomegaly Procedures PROC FIBROSCAN PatrickTiffanie APRN-CAR SUPPLIER [address] [place] [address] Referral ID Status Reason Start Date Expiration Date Visits Re quested Visits Authorized [id number] Closed 06/08/2019 12/05/2019 1 1 EL PT Encounter Details Date Type Department Care Team (Late st Contact Info) Description 06/08/2019 Orders Only [facility] [address] [place] [address] Tiffanie Nguyen APRN-CNP [address] [place] [address] Splenomegaly Social History Tobacco Use Types Packs/Day [...] (Late Contact Info) Description 08/26/2024 11:00 AM TRAVEL PT Office Visit [facility] - Pulmonology [address] [place] [address], [place] [id number] Andrew Francis MD [address] [place] [address] 2L DIV OF PULMONARY/[place] [address] documented as of this encounter Results * NM LIVER ELASTOGRAPHY (06/11/2019 4:49 PM TRAVEL PT) Narrative Travon Merchant MD - 06/11/2019 4:49 PM TRAVEL PT Travon Merchant MD ? 06/11/2019 ??4:49 PM Diagnosis: Splenomegaly RN verified patient has no implanted devices and NPO for prior 3 hours. Vital signs taken, procedure explained and consent signed. Date of Exam: 06/09/2019 Liver Stiffness: (E, kPa) median: ??3.7 IQR (interquartile range): ?? 0.4 IQR/Median% (ideally < 30%): ??11 CAP (controlled attenuation parameter): ??400 Technical Difficulty: None Ordering Provider: Tiffanie Nguyen TICKET CLERK Phone Fax Fibroscan interpretation: I have personally [...] change as additional supporting data becomes available. [email or web address] Tiffanie Nguyen LEGAL WRITING PROFESSOR-CAR SUPPLIER PROCEDURE/MINOR SURGICAL ORDERABLES documented in this encounter Visit Diagnoses Diagnosis Splenomegaly- Primary Splenomegaly- Primary documented in this encounter Care Teams Food Sales Clerk Relationship Specialty Start Date End Date Ran Nuñez MD [address] [place] [address] PCP - General Family Medicine 03/22/19 12/22/20 Hillary Apple MD [address] [place] [address] Hematology and Oncology 03/17/19 Bill Ferrera MD [address] [place] [address] Hematology and Oncology 03/17/19 08/27/21 Tony Dumont MD [address] [place] [address] Hematology and Oncology 03/17/19 Shalini Segal MD [address] [place] [address] Hematology and Oncology 03/17/19 09/29/19 Karie Jones, RN Registered Nurse 03/17/19 09/21/19 Maryjo Reinoso, MATERIALS MANAGEMENT CLERK Case Planner 03/17/19 Madyson Clay, PharmD 03/17/19 Dana Lala, LEGAL WRITING PROFESSOR-BUSINESS SUPPORT LIAISON [address] [place] [address] [address]nd [place] [address] Oncology 03/17/19 Mckinley Silver PA-C [address] [place] [address] [address] [place] [address] Physician Vice President Talent Management 03/17/19 09/08/19 Tiffanie Nguyen, LEGAL WRITING PROFESSOR-CAR SUPPLIER [address] [place] [address] [address]nd [place] [address] Family Medicine 03/17/19 Stephanie Mahoney, RN Registered Nurse 03/17/19 10/29/21 Alycia Galvan, ROSEMARY 03/17/19 10/29/21 Cesar Tavares MD [address] [place] [address] Referring Physician Medical Oncology 03/23/19 Karie Jones, RN Registered Nurse 06/08/19 10/29/21 documented as of this encounter
--- OUTSIDE RECORDS SUMMARY | 2024-08-18 00:36 | XMS_ITS | Encounter Summary ---
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 [address] [place], [place] [address] [facility] [address] [place] [address] Physician Professor Of Economics 03/17/19 09/08/19 Tiffanie Nguyen, SNUFF PACKING MACHINE OPERATOR-COMMUNITY PLACEMENT WORKER [address] [place], [place] [address] [facility] [address] [place] [address] Family Medicine 03/17/19 Stephanie Mahoney, RN Registered Nurse 03/17/19 10/29/21 Alycia Galvan, ROSEMARY 03/17/19 10/29/21 documented as of this encounter
--- OUTSIDE RECORDS SUMMARY | 2024-08-18 00:36 | XMS_ITS | Encounter Summary ---
Author Organization [facility] Address [address] [place] [address] Care Team Providers Care Tool And Gauge Inspector Name Role Phone Hillary Apple MD Unavailable [phone] Bill Ferrera MD Unavailable [phone] Tony Dumont MD Unavailable [phone] Shalini Segal MD Unavailable [phone] Karie Jones RN Unavailable Unavailable Maryjo Reinoso LCSW Unavailable Unavailable Madyson Clay PharmD Unavailable Unavaila Dana Galicia CEPHALOMETRIC ANALYST-INFORMATION SERVICES MANAGER Unavailable [phone] Mckinley Silver-C Unavailable Unavail able Patrick, Tiffanie [place] CEPHALOMETRIC ANALYST-VASCULAR PHYSICIAN Unavailable [phone] Stephanie Mahoney RN Unavailable Unavailable Alycia Galvan RN Unavailable UnavailRan Mejía MD Primary Care Provider Cesar Tavares MD Unavailable [phone] Karie Jones RN Unavailable Unavailable Joy Bob Unavailable Fanta Addison Weinstein PharmD Unavailable Unavailab Alida Chang CEPHALOMETRIC ANALYST-VASCULAR PHYSICIAN Primary Care Provider Ran Nuñez MD Primary Care Provider Tony Dumont MD Unavailable [phone] Shalini Segal MD Unavailable Stefanie Burns RN Unavailable Unavaila Fatemeh Kelly RN Unavailable Unavailable Glenn Hernandez MD Unavailable [phone] Chandana Lu MD Unavailable Encounter Details Date Type Department Care Team (Late Contact Info) Description 03/24/2019 Lab Requisition [facility] Care Pathology Lab [address] [place] [address] Roseline Higgins MD [address] [place] [address] Social History Tobacco Use Types Packs/Day Years [...] st Contact Info) Description 08/26/2024 11:00 AM AMBULANCE ATTENDANT Office Visit [facility] - Pulmonology [address] [place] [id number] Andrew Francis MD [address] [place] [address] 2L DIV OF PULMONARY/[place] [address] documented as of this encounter Procedures Procedure Name Priority Date/Time Associated Diagnosis Comments BONE MARROW BIOPSY (STL) Routine 03/23/2019 10:40 AM CDT documented in this encounter Results * BONE MARROW BIOPSY (STL) (03/23/2019 10:40 AM CDT) Case Report Bone Marrow Patholog y Report ?Case: [id number] ? Authorizing Provider: ??Roseline Higgins, ?Collected: ? 03/23/2019 10:40 AM ? Ordering Location: ? [facility] Care Pathology Lab ? Received: ?03/24/2019 03:08 PM ? Pathologist: ? Alecia Neri MD ? Specimens: ?? A) - Bone Marrow Core, BM19-30 ? B) - Bone Marrow Clot, BM19-30 ? C) - Blood Peripheral, BM19-30 ? D) - Bone Marrow Aspirate, BM19-30 ? 03/25/2019 1:01 PM CDT [facility] Final Diagnosis Bone marrow, aspirate, clot section, and core biopsy: - Normocellular marrow with maturing trilineage hematopoiesis and approximately 5-10% involvement by B-cell lymphoma. - Non-necrotizing granuloma formation. - Absent storage iron. - See microscopic description. Peripheral blood smear: - Pancytopenia. - See microscopic description. 03/25/2019 1:01 PM [facility] Comment In summary, the bone marrow is normocellular for age with maturing trilineage hematopoiesis. There is approximately 5-10% involvement by a mature B-cell lymphoma. The differential diagnosis for this lymphoma includes marginal zone lymphoma (particularly splenic marginal zone lymphoma) and diffuse large B-cell lymphoma with discordant marrow morphology. Further, multiple well-formed non-necrotizing granulomas are identified. Staining for fungal and acid fast microorganisms. The significance of these is not clear. Correlation with additional clinical and relevant cytogenetic/molecular testing is required. KR 03/25/2019 1:01 PM [facility] Peripheral Smear Description CBC Data: WBC - 2.7, Hgb - 11.4, MCV - 80.5, MCHC - 32, and Platelets - 55. Manual Differential Count (100 cells): 48% neutrophils, 42% lymphocytes, 8% monocytes, and 2% eosinophils. Leukocyte number: decreased. Granulocyte morphology: normal. Lymphocyte morphology: normal. Erythrocyte number: decreased. Erythrocyte morphology: normochromic/normocyti c. Anisopoikilocytosis: mild. Polychromasia: mild. Platelet number: decreased. Platelet morphology: normal. 03/25/2019 1:01 PM [facility] Bone Marrow Aspirate Differential count (200 cells): 1% blasts, 49% maturing myeloid precursors, 33% erythroid progenitors, 2% monocytes, 6% eosinophils, and 9% lymphocytes. Spicules: absent. Trilineage Hematopoiesis: present with rare megakaryocytes. Myeloid:Erythroid ratio: 1.7:1. Myeloid Maturation: normal. Erythroid Maturation: normal. Megakaryocyte morphology: normal nuclear lobation. Lymphocytes: Small and mature. Storage iron (by special stain): decreased. No spicules present. Paucicellular smear. Sideroblastic iron (by special stain): decreased. 03/25/2019 1:01 PM [facility] Bone Marrow Core Biopsy and Clot Section Description Specimen quality: The decalcified bone marrow core biopsy is adequate for evaluation. Cellularity: Normocellular, 50-60%. Trilineage Hematopoiesis: present. Myeloid to Erythroid ratio: normal. Myeloid maturation and localization: normal. Erythroid maturation and localization: normal. Megakaryocyte number: normal. Megakaryocyte distribution: normal. Lymphoid aggregates: Multiple variably sized lymphoid aggregates are identified. They are comprised of predominantly small lymphocytes with condensed chromatin and scant to moderate amounts of cytoplasm. Other: Multiple well-formed apparent granulomas are present with tightly compacted giant cells and no necrosis. Clot section marrow particles: present. Clot section morphology: similar to core biopsy. Clot section iron (by special stain): Absent (control is appropriately reactive). Given the multiple lymphoid aggregates and granulomatous inflammation, immunohistochemistry and special stains are performed on the bone marrow core biopsy in the [facility] Department of Pathology. All controls are appropriately reactive. CD20 highlights the vast majority of cells in the lymphoid aggregates, which are estimated to comprise 5-10% of the marrow cellularity. CD3 shows significantly fewer numbers of admixed T-cells. CD68 is expressed by the cells comprising the granulomas, while CD61 shows a normal number and distribution of megakaryocytes. CD30 is negative. AFB and GMS special stains are negative for acid fast and fungal organisms, respectively. 03/25/2019 1:01 PM [facility] Flow Cytometry Summary Concurrent flow cytometry ([id number]) shows involvement by a CD5-negative, [id number] mature B-cell lymphoma. 03/25/2019 1:01 PM [facility] Clinical History 48 year old man with a history of B-cell lymphoma, lymphadenopathy, and splenomegaly, status-post treatment. 03/25/2019 1:01 PM [facility] Materials Received Received are 20 slides and 3 blocks labeled as [id number] along with the outside pathology report. [place] [address]. All materials are returned to the referring institution, along with a copy of our final report. 03/25/2019 1:01 PM [facility] Disclaimer The performance characteristics of all immunohistochemical and indirect immunofluorescence stains (if any) cited in this report were determined by the Histopathology Laboratory of [facility]. Some of these tests were developed [...] and interpreted by the attending (teaching) pathologist. The interpretation of this case is performed by [facility] at [facility], [address] [place] [address]. 03/25/2019 1:01 PM CDT [facility] Embedded Images 03/25/2019 1:01 PM CDT [facility] Pathology/Cytology SPECIMEN FROM BONE MARROW OBTAINED BY ASPIRATION / Unknown 03/23/2019 10:40 AM CDT 03/24/2019 3:08 PM CDT Miscellaneous samples (specimen) BONE MARROW CLOT SPECIMEN / Unknown 03/23/2019 10:40 AM CDT 03/24/2019 3:08 PM CDT Miscellaneous samples (specimen) PERIPHERAL BLOOD / Unknown 03/23/2019 10:40 AM CDT 03/24/2019 3:08 PM CDT Miscellaneous samples (specimen) SPECIMEN FROM BONE MARROW OBTAINED BY ASPIRATION / Unknown 03/23/2019 10:40 AM CDT 03/24/2019 3:08 PM CDT Roseline Higgins MD LAB - PATHOLOGY/CYTO LOGY ORDERABLES Performing Organization Address City/State/[facility] Co de Phone Number [facility] [address] [phone] documented in this encounter Visit Diagnoses Not [...] COVID-19 Confirmed 03/06/2020 07/14/2020 0 4:33 AM AMBULANCE ATTENDANT COVID-19 Under Investigation 03/07/2020 03/07/2020 03/09/2020 8:54 AM CDT COVID-19 Under Investigation 03/29/2020 03/29/2020 03/30/2020 9:42 AM CDT COVID-19 Confirmed 08/31/2020 08/31/2020 1 4:34 AM AMBULANCE ATTENDANT COVID-19 Confirmed 09/28/2020 09/28/2020 1 4:33 AM AMBULANCE ATTENDANT COVID-19 Under Investigation 11/16/2020 11/16/2020 11/16/2020 6:52 PM CDT COVID-19 Confirmed 11/16/2020 11/16/2020 4:35 AM CDT COVID-19 Under Investigation 12/20/2020 12/20/2020 12/20/2020 6:23 PM CDT COVID-19 Under Investigation 04/21/2021 04/21/2021 2021 6:42 AM CDT documented as of this encounter Care Teams Tool And Gauge Inspector Relationship Specialty Start Date End Date Ran Nuñez MD [address] [place] [address] PCP - General Family Medicine 03/22/19 12/22/20 Alida Marshall APRN-VASCULAR PHYSICIAN [address] [facility] [place] [address] PCP - General Family Medicine 12/23/20 08/29/21 Ran Nuñez MD [address] [place] [address] PCP - General Family Medicine 08/30/21 [place] [address] [facility] [place] [id number] PCP - Attributed-tSefany [place] 03/04/23 08/21/23 Hillary Apple MD [address] [place] [address] Hematology and Oncology 03/17/19 Bill Ferrera MD [address] [place] [address] Hematology and Oncology 03/17/19 08/27/21 Tony Dumont MD [address] [place] [address] Hematology and Oncology 03/17/19 Shalini Segal MD [address] [place] [address] Hematology and Oncology 03/17/19 09/29/19 Karie Jones, RN Registered Nurse 03/17/19 09/21/19 Maryjo Reinoso, REHABILITATION SUPERVISOR Aircraft Painter 03/17/19 Madyson Clay, PharmD 03/17/19 Dana Lala APRN-INFORMATION SERVICES MANAGER [address] [place], [place] [address]TA [facility] [address] [address] Oncology 03/17/19 Mckinley Silver PA-C [address] [place] [address] [address] [place] [address] Physician Cylinder Filler 03/17/19 09/08/19 Tiffanie Nguyen, CEPHALOMETRIC ANALYST-VASCULAR PHYSICIAN [address] [place] [address] [address] [address] Family Medicine 03/17/19 Stephanie Mahoney, RN Registered Nurse 03/17/19 10/29/21 Alycia Galvan, ROSEMARY 03/17/19 10/29/21 Cesar Tavares MD [address] [place] [address] Referring Physician Medical Oncology 03/23/19 Karie Jones, RN Registered Nurse 06/08/19 10/29/21 Joy Bob 09/22/19 Addison Shea, EusebioD Pharmacist 09/22/19 10/29/21 Tony Dumont MD [address] [place] [address] Hematology and Oncology 10/30/21 Shalini Segal MD [address] [facility] [place] [address] Peanut Sheller/Oncologis t Hematology and Oncology 10/30/21 Stefanie Burns, RN Registered Nurse 10/30/21 Fatemeh Bolaños, RN Registered Nurse 10/30/21 Chandana Lu MD [address] [place] [address] Orthopedic Surgery 03/30/24 documented as of this encounter
--- OUTSIDE RECORDS SUMMARY | 2024-08-18 00:36 | XMS_ITS | Encounter Summary ---
Author Organization [facility] Address [address] [place] [address] Care Team Providers Care Wood Tool Maker Name Role Phone Hillary Apple MD Unavailable [phone] Bill Ferrera MD Unavailable [phone] Tony Dumont MD Unavailable [phone] Shalini Segal MD Unavailable [phone] Karie Jones RN Unavailable Unavailable Maryjo Reinoso LCSW Unavailable Unavailable Madyson Clay PharmD Unavailable Unavaila Dana Galicia GRINDER OPERATOR-CORN HUSK BALER Unavailable [phone] Mckinley SilverC Unavailable Unavail able PatrickTiffanie hammer APRN-[place]HE[place] ROCK SANDER Unavailable [phone] Stephanie Mahoney RN Unavailable Unavailable Alycia Galvan RN Unavailable UnavailRan Mejía MD Primary Care Provider Cesar Tavares MD Unavailable [phone] Encounter Details Date Type Department Care Team (Latest Contact Info) Description 05/24/2019 11:29 AM CDT - 05/24/2019 11:59 PM CDT Hospital Encounter [facility] [address] [place] [address] Patrick, Tiffanie Seymour GRINDER OPERATOR-SHEET ROCK SANDER [address] [place] [id number] Discharge Disposition: Home or Self Care Social [...] Sign Reading Time Taken Comments Blood Pressure 147/95 05/24/2019 11:33 AM CDT Pulse 75 05/24/2019 11:33 AM CDT Temperature 36.9 ??C (98.5 ??F) 05/24/2019 1 1:33 AM CDT Respiratory Rate 18 05/24/2019 11:3 3 AM CDT Oxygen Saturation 99% 05/24/2019 11: 33 AM CDT Inhaled Oxygen Concentration - - Weight 121.5 kg (267 lb 12.8 oz) 2018 11:33 AM CDT Height - - Body Mass Index 41.54 03/22/2019 2:24 PM CDT documented in this [...] mg by mouth 2 times daily 10/29/2019 HYDROcodone-acetaminoph en (NORCO) 5-325 MG tablet Take 1 tablet by mouth every 4 hours as needed 03/09/2019 08/19/2019 lidocaine-prilocaine (EMLA) 2.5-2.5 % cream Apply to port site 30-60 mins before use. 04/24/2017 10/13/2019 ondansetron, disintegrating, (ZOFRAN ODT) 8 MG tablet Dissolve 1 tablet on top of tongue then swallow with saliva every 8 hours as needed for nausea or vomiting 04/19/2019 12/20/2021 prochlorperazine (COMPAZINE) 10 MG tablet Take 10 mg by mouth every 6 hours as needed 04/27/2019 12/20/2021 documented as of this encounter Consult Notes * Hillary Apple MD - 05/24/2019 12:03 PM CDT BMT Consultation Note CARE TEAM: Referring Oncologist: Cesar Tavares Primary Care Physician: Drew Tong Other physicians pertinent to the care of the patient: none History of Present Illness Aurelio initially presented in 2016 with LUQ abdominal pain and 30 pound [...] and approximately 5-10% involvement by B-cell lymphoma. Oncologic Treatment History: 04/30/17: Cycle 1 CHOP (Rituxan d/c'd due to severe anaphylactic reaction) 05/20: Cycle 2 CHOP 06/13/17: Cycle 3 CHOP 07/03/17: Cycle 4 R-CHOP (tolerated rituxan well) 07/25/17: Cycle 5 R-CHOP 08/21: Cycle 6 R-CHOP 04/20/19: Cycle 1 Bendamustine/Gazyva 05/18/19: Cycle 2 Bendamustine/Gazyva Interval History: Aurelio presents to clinic ambulatory. Has been feeling fair but has been tired with chemotherapy. Also has been nauseated on days around chemo, no vomiting. Nausea only lasts a few days. Appetite increased but hasn't noticed improved LUQ pain. Continues to smoke marijuana and using CBD pills . Has been having lower back pain that improved after having BM. 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 allopurinol (ZYLOPRIM) 300 MG tablet Take [...] needed No current facility-administered medications for this encounter. Allergies: NKA Vitals Vitals: 05/24/19 1133 BP: 147/95 Pulse: 75 Resp: 18 Temp: 98.5 ??F SpO2: 99% Weight: 121.5 kg (267 lb 12.8 oz) Wt Readings from Last 3 Encounters: 05/24/19 121.5 kg (267 lb 12.8 oz) 03/22/19 115.4 kg (254 lb 8 oz) Physical Exam Karnofsky/ECO/0 Physical Examination: General appearance - alert, well appearing, and in no distress Mental status - alert, oriented to person, place, and time Mouth - mucous membranes moist, pharynx normal without lesions Lymphatics - no palpable lymphadenopathy Chest - clear to auscultation, no wheezes, rales or rhonchi, symmetric air entry Heart - normal rate, regular rhythm, normal S1, S2, no murmurs, rubs, clicks or gallops Abdomen - soft, nondistended, no masses or organomegaly. LUQ remains tender to palpation, spleen not palpable Musculoskeletal - no joint tenderness, deformity or swelling Extremities - peripheral pulses normal, no pedal edema, no clubbing or cyanosis Skin - normal coloration and turgor, no rashes, no suspicious skin lesions noted PAC - not accessed today Labs Recent Labs Component Name 05/24/19 1206 03/22/19 1500 WBC 2.7* 3.0* RBC 4.60 4.46 HGB 11.6* 11.6* HCT 35.8* 35.6* MCV 77.8* 79.8* MCH 25.2* 26.0* MCHC 32.4 32.6 PLTCOUNT 28* 59* RDWSD 50.6* 39.7 RDW 18.3* 13.8 MPV - 10.2 NRBCABS 0.00 0.00 NRBCAUTOPCT 0.0 0.0 NEUTPCT 75.2* 50.7 LYMPHSPCT 8.6* 36.5 MONOPCT 9.0 6.4 EOSPCT 5.6 5.1 BASOPCT 0.8 1.0 IMMGRANSPCT 0.8 0.3 NEUTABS 2.0 1.5* LYMPHS 0.2* 1.1 MONO 0.24 0.19 EOS 0.15 0.15 BASO 0.02 0.03 Recent Labs Component Name 05/24/19 1206 03/22/19 1500 BUN 17 22 CREATININE 1.0 1.2 NA 140 140 POTASSIUM 4.8* 4.7* CL 106 106 CO2 26 22 GLU 94 91 CALCIUM 9.4 9.6 PROT 6.0 6.5 ALB 4.0 4.1 TBILI 0.4 0.3 ALKPHOS 65 125 ALT 31 22 AST 19 20 ANIONGAP 13 17 BCR 17 18 OSMOLALITY 291 293 AGRATIO 2.0 1.7 EGFR >60 >60 Recent Labs Component Name 05/24/19 1206 03/22/19 1500 MAGNESIUM 2.0 1.9 Recent Labs Component Name 05/24/19 1206 03/22/19 1500 PHOS 3.5 5.4* LDH Total Date Value Ref Range Status 05/24/2019 179 125 - 243 Units/L Final 03/22/2019 231 125 - 243 Units/L Final Most Recent Disease Specific Testing: Bone Marrow Biopsy (03/23/19): Path: normocellular marrow with maturing trilineage hematopoiesis and approximately 5-10% involvement by B-cell lymphoma. Non-necrotizing granuloma formation. Absent storage iron. Flow: CD5 negative, CD10 negative maturing B-cell lymphoma. PET CT (03/17/19): moderate splenomegaly without focal lesion. No hepatosplenomegaly seen. Mildly hypermetabolic and subcentimeter left axillary lymph node with benign morphology on corresponding CT images, likely reactive. Assessment & Plan B Cell Lymphoma-Relapsed -PET CT and BMBx as above -s/p 6 cycles R-CHOP (3 cycles with R), with early relapse. Now in cycle 2 Bendamustine/Gazyva -will plan repeat disease evaluation in approx 2 weeks with BMBx and abdominal CT. Based on spleen size and counts will determine further treatment, likely 3 cycles followed by auto transplant if disease controlled -will need to consider spleen size prior to mobilization, briefly discussed possibility of splenectomy but will follow this closely -start antiviral ppx Inclusion/Exclusion criteria pertinent to transplant eligibility: Does [...] Documented cirrhosis of the liver No Uncontrolled CORN HUSK BALER disease No N/A Pre-Transplant Proposed TimeLine Consolidation or other debulking treatment prior to transplant- complete abd CT and BMBx in approx 2 weeks, then will discuss if 3rd cycle Bendamustine/Gazyva Proposed preparative regimen type based on disease/age and current clinical condition: BEAM auto BMT Class plan: to be scheduled by RN coordinator Social Work evaluation- contact the social media director: to be scheduled by RN coordinator Transplant [...] diclofenac BID, controls pain well. Cardiac History -historical a. Fib, although sounds like SVT. This was a long time ago, will need to follow pre-transplant Marijuana Drug Use -discussed need to stop this with auto transplant, will have further discussion when diagnosis confirmed. Disposition/Recommendations: RN coordinator to schedule abd CT and BMBx in next 2 weeks (at [facility]), then will recommend if 3rd cycle should resume as scheduled. Tiffanie Nguyen, MANAGER MARKET INTELLIGENCE- Blood and Marrow Transplant Clinic [facility] I independently interviewed and examined Marcello Guillen with the BMT advanced practice provider. I reviewed my findings and assessment with the advanced practice provider and the patient. I reviewed the below note. Please see note for full detail. Aurelio presents for scheduled follow-up He received cycle 2 of jennifer/Gazyva on 05/19/19 He has fortunately gained 12 pounds but he attributes this more to marijuana use than to spleen control He does feel that his spleen has shrunk some, tenderness has improved but still quite significant On exam, we were not able to and cannot easily appreciate changes in the spleen but he remains markedly tender to palpaltion Today, 6 days into C2, platelets are only in the 20s His marrow involvement was not extensive at relapse so whether this is poor reserve, jennifer-related or hypersplenism related is hard to say We will need to ensure that bendamustine does not compromise stem cell reserve In 2 weeks, around week 3 of cycle 2, will plan a disease reassessment with BMBx and CT scan to measure spleen size If responding, consider 1 additional cycle followed by autoSCT If not responding, consider UNITY trial If responding, spleen size will need to be taken into consideration as autoSCT is considered Per Mr. Guillen's description of response to R-CHOP therapy, spleen response was slow After 3 cycles of B/Gazyva, if spleen remains enlarged, this may pose a problem with G-CSF mobilization and we may need to discuss pros/cons of splenectomy. I appreciate discussion with Dr. Tavares. He knows that we will touch base prior to committing to C3. He does recall Aurelio's trend of symptoms/counts and response before and felt that it was much more rapid and profound with CHOP. We both are concerned about sub-optimal response Give flu shot today RTC 2 weeks and we will plan to discuss re-staging results before talking with Dr. Tavares about whether to proceed with C3 Hillary Apple MD MSc heddler tier Interim Director, Division of Hematology/Oncology [facility] documented in this encounter Plan of Treatment Upcoming Encounters Date Type Department Care Team (Late st Contact Info) Description 08/26/2024 11:00 AM TICKET PRINTER AND TAGGER Office Visit [facility] - Pulmonology [address] [place] [address], [place] [address] Andrew Francis MD [address] [place] [address] 2L DIV OF PULMONARY/[place] [address] documented as of this encounter Procedures Procedure Name Priority Date/Time Associated Diagnosis Comments CBC W AUTO DIFFERENTIAL STAT 05/24/2019 12:06 PM CDT Diffuse large B-cell lymphoma, unspecified body region (HCC) COMPREHENSIVE METABOLIC PANEL STAT 05/24/2019 12:06 PM CDT Diffuse large B-cell lymphoma, unspecified body region (HCC) PHOSPHORUS BLOOD STAT 05/24/2019 12:0 6 PM CDT Diffuse large B-cell lymphoma, unspecified body region (HCC) MAGNESIUM BLOOD STAT 05/24/2019 12:06 PM CDT Diffuse large B-cell lymphoma, unspecified body region (HCC) LDH BLOOD Routine 05/24/2019 12:06 PM CDT Diffuse large B-cell lymphoma, unspecified body region (HCC) documented in this encounter Results * LDH BLOOD (05/24/2019 12:06 PM CDT) LDH Total 179 125 - 243 Units/L 05/24/2019 12:47 PM CDT [facility] Blood BLOOD SPECIMEN / Unknown Venipuncture / Unknown 05/24/2019 12:06 PM CDT 05/24/2019 12:14 PM CDT Tiffanie Nguyen GRINDER OPERATOR-[facility] - CHEMISTRY ORDERABLES [address] [phone] * PHOSPHORUS BLOOD (05/24/2019 12:06 PM CDT) Phosphorus 3.5 2.3 - 4.7 mg/dL 05/24/2019 12:45 PM CDT [facility] Blood BLOOD SPECIMEN / Unknown Venipuncture / Unknown 05/24/2019 12:06 PM CDT 05/24/2019 12:14 PM CDT Tiffanie Nguyen GRINDER OPERATOR-[facility] - CHEMISTRY ORDERABLES [address] [phone] * MAGNESIUM BLOOD (05/24/2019 12:06 PM CDT) Magnesium 2.0 1.6 - 2.6 mg/dL 05/24/2019 12:47 PM CDT [facility] Blood BLOOD SPECIMEN / Unknown Venipuncture / Unknown 05/24/2019 12:06 PM CDT 05/24/2019 12:14 PM CDT Tiffanie [facility]LES [address] [phone] * (ABNORMAL) CBC W AUTO DIFFERENTIAL (05/24/2019 12:06 PM CDT) WBC 2.7(L) 3.5 - 10.5 10? 3 /uL 05/24/2019 12:26 PM CDT [facility] RBC 4.60 4.30 - 5.70 10? 6 /uL 05/24/2019 12:26 PM CDT [facility] Hemoglobin 11.6(L) 13.5 - 17.5 g/dL 05/24/2019 12:26 PM [facility] Hematocrit 35.8(L) 39.0 - 50.0 % 05/24/2019 12:26 PM [facility] MCV 77.8(L) 81.0 - 97.0 fL 05/24/2019 12:26 PM [facility] MCH 25.2(L) 28.0 - 34.0 pg 05/24/2019 12:26 PM [facility] MCHC 32.4 32.0 - 36.0 g/dL 05/24/2019 12:26 PM [facility] Platelet Count 28(LL) 150 - 400 10? 3 /uL 05/24/2019 12:26 PM [facility] Comment: All CBC parameters have been checked. Not called to BMT CLINIC. RDW-SD 50.6(H) 36.0 - 50.0 fL 05/24/2019 12:26 PM [facility] RDW-CV 18.3(H) 11.2 - 14.8 % 05/24/2019 12:26 PM [facility] nRBC Absolute 0.00 0 10? 3 /uL 05/24/2019 12:26 PM [facility] nRBC Auto 0.0 0 /100 WBC 05/24/2019 12:26 PM [facility] Neutrophils % 75.2(H) 35.0 - 70.0 % 05/24/2019 12:26 PM [facility] Lymphocytes % 8.6(L) 19.7 - 55.1 % 05/24/2019 12:26 PM [facility] Monocytes % 9.0 3.0 - 15.0 % 05/24/2019 12:26 PM [facility] Eosinophils % 5.6 0.0 - 6.0 % 05/24/2019 12:26 PM [facility] Basophil % 0.8 0.0 - 1.5 % 05/24/2019 12:26 PM [facility] Neutrophils Absolute 2.0 1.6 - 7.0 10? 3 /uL 05/24/2019 12:26 PM [facility] Lymphocyte Absolute 0.2(L) 0.8 - 2.9 10? 3 /uL 05/24/2019 12:26 PM [facility] Monocytes Absolute 0.24 0.14 - 0.66 10? 3 /uL 05/24/2019 12:26 PM [facility] Eosinophils Absolute 0.15 0.00 - 0.45 10? 3 /uL 05/24/2019 12:26 PM [facility] Basophils Absolute 0.02 0.00 - 0.06 10? 3 /uL 05/24/2019 12:26 PM [facility] Immature Granulocytes % 0.8 0.0 - 1.0 % 05/24/2019 12:26 PM [facility] Blood BLOOD SPECIMEN / Unknown Venipuncture / Unknown 05/24/2019 12:06 PM CDT 05/24/2019 12:14 PM T Tiffanie Seymour Patrick GRINDER OPERATOR-[facility] SANDER LAB - HEMATOLOG Y ORDERABLES Performing Organization Address City/State/[facility] Co de Phone Number [facility] [address] [place] [address] * (ABNORMAL) COMPREHENSIVE METABOLIC PANEL (05/24/2019 12:06 PM T) BUN 17 7 - 26 mg/dL 05/24/2019 12:47 PM [facility] Creatinine 1.0 0.6 - 1.2 mg/dL 05/24/2019 12:47 PM [facility] Sodium 140 136 - 145 mmol/L 05/24/2019 12:47 PM [facility] Potassium 4.8(H) 3.5 - 4.5 mmol/L 05/24/2019 12:47 PM [facility] Chloride 106 98 - 107 mmol/L 05/24/2019 12:47 PM [facility] CO2 26 22 - 29 mmol/L 05/24/2019 12:47 PM [facility] Glucose 94 70 - 115 mg/dL 05/24/2019 12:47 PM [facility] Calcium 9.4 8.4 - 10.2 mg/dL 05/24/2019 12:47 PM [facility] Protein Total 6.0 6.0 - 8.3 g/dL 05/24/2019 12:47 PM [facility] Albumin 4.0 3.4 - 5.0 g/dL 05/24/2019 12:47 PM [facility] Bilirubin Total 0.4 0.2 - 1.2 mg/dL 05/24/2019 12:47 PM [facility] Alkaline Phosphatase 65 40 - 150 Units/L 05/24/2019 12:47 PM [facility] ALT 31 0 - 55 Units/L 05/24/2019 12:47 PM [facility] AST 19 5 - 34 Units/L 05/24/2019 12:47 PM [facility] Anion Gap 13 8 - 18 05/24/2019 12:47 PM [facility] BUN/Creatinine Ratio 17 7 - 23 05/24/2019 12:47 PM [facility] Osmolality Calculated 291 270 - 300 mOsm/kg 05/24/2019 12:47 PM [facility] Albumin/Globulin Ratio 2.0 1.1 - 2.3 05/24/2019 12:47 PM [facility] eGFR >60 >60 mL/min/1.7 3 m2 05/24/2019 12:47 PM [facility] Blood BLOOD SPECIMEN / Unknown Venipuncture / Unknown 05/24/2019 12:06 PM CDT 05/24/2019 12:14 PM T Tiffanie Nguyen GRINDER OPERATOR-[facility] LAB - CHEMISTRY ORDERABLES Performing Organization Address [facility]/State/[facility] Co de Phone Number [facility] [address] [phone] documented in this encounter Visit Diagnoses Diagnosis Diffuse large B-cell lymphoma, unspecified body region (HCC)- Primary B-cell lymphoma, unspecified B-cell lymphoma type, unspecified body region (HCC) documented in this encounter Care Teams Wood Tool Maker Relationship Specialty Start Date End Date Ran Nuñez MD [address] [place] [phone] PCP - General Family Medicine 03/22/19 12/22/20 Hillary Apple MD [address] [place] [address] Hematology and Oncology 03/17/19 Bill Ferrera MD [address] [place] [address] Hematology and Oncology 03/17/19 08/27/21 Tony Dumont MD [address] [place] [address] Hematology and Oncology 03/17/19 Shalini Segal MD [address] [place] [address] Hematology and Oncology 03/17/19 09/29/19 Karie Jones, ROSEMARY Registered Nurse 03/17/19 09/21/19 Maryjo Reinoso, TOP CARRIER Sweeper Driver 03/17/19 Madyson Clay, PharmD 03/17/19 Dana Lala GRINDER OPERATOR-CORN HUSK BALER [address] [place] [address] [address] [place] [address] Oncology 03/17/19 Mckinley Silver PA-C [address] [place] [address] [address] [place] [address] Physician Welder Machine Operator 03/17/19 09/08/19 Tiffanie Nguyen, GRINDER OPERATOR-SHEET ROCK SANDER [address] [place] [address] [address] [place] [address] Family Medicine 03/17/19 Stephanie Mahoney, RN Registered Nurse 03/17/19 10/29/21 Alycia Galvan, ROSEMARY 03/17/19 10/29/21 Cesar Tavares MD [address] [place] [address] Referring Physician Medical Oncology 03/23/19 documented as of this encounter
--- OUTSIDE RECORDS SUMMARY | 2024-08-18 00:36 | XMS_ITS | Encounter Summary ---
Author Organization [facility] Address [address] [facility] [place] [address] Care Team Providers Care Head Sampler Name Role Phone Hillary Apple MD Unavailable [phone] Bill Ferrera MD Unavailable [phone] Tony Dumont MD Unavailable [phone] Shalini Segal MD Unavailable [phone] Karie Jones RN Unavailable Unavailable Maryjo Reinoso LCSW Unavailable Unavailable Madyson Clay PharmD Unavailable Unavaila Dana Galicia HONEY EXTRACTOR-GUIDE DOG MOBILITY INSTRUCTOR Unavailable [phone] Mckinley Silver-C Unavailable Unavail able PatrickTiffanie HONEY EXTRACTOR-AUTO SLIP COVER INSTALLER Unavailable [phone] Stephanie Mahoney RN Unavailable Unavailable Alycia Galvan RN Unavailable UnavailRan Mejía MD Primary Care Provider Cesar Tavares MD Unavailable [phone] Encounter Details Date Type Department Care Team (Late st Contact Info) Description 05/31/[address] [facility] B[facility] CLINIC [address] [place] [address] Karie Jones, RN Social History Tobacco Use Types Packs/Day Years Used Date Smoking Tobacco: Never Assessed Sex and Gender Information Value Date Recorded Sex Assigned at Male 03/27/2022 11:34 AM CDT Gender Identity Male 03/27/2022 11:34 AM CDT Sexual Orientation Straight 03/27/2022 11 :34 AM CDT documented as of this encounter Miscellaneous Notes * Telephone Encounter - Karie Jones RN - 05/31/2019 9:43 AM CDT Informed patient of the dates and times for his testing on 06/09. Aware to be NPO after 8am. All questions answered. Will call for any further questions. documented in this encounter Plan of Treatment Upcoming Encounters Date Type Department Care Team (Late st Contact Info) Description 08/26/2024 11:00 AM PULL WORKER Office Visit [facility] - Pulmonology [address] [place] [address], [place] [phone] Andrew Francis MD [address] [place] [address] 2L DIV OF PULMONARY/[place] [address] documented as of this encounter Visit Diagnoses Not on filedocumented in this encounter Care Teams Head Sampler Relationship Specialty Start Date End Date Ran Nuñez MD [address] [place] [address] [place] [phone] PCP - General Family Medicine 03/22/19 12/22/20 Hillary Apple MD [facility] [place] [address] Hematology and Oncology 03/17/19 Bill Ferrera MD [facility] [place] [address] Hematology and Oncology 03/17/19 08/27/21 Tony Dumont MD [address] [place] [address] Hematology and Oncology 03/17/19 Shalini Segal MD [address] [place] [address] Hematology and Oncology 03/17/19 09/29/19 Karie Jones, RN Registered Nurse 03/17/19 09/21/19 Maryjo Reinoso, REYNA Sales And Marketing Administrator 03/17/19 Madyson Clay, PharmD 03/17/19 Dana Lala, HONEY EXTRACTOR-GUIDE DOG MOBILITY INSTRUCTOR [facility] [address] [place] [address] Oncology 03/17/19 Mckinley Silver PA-C [facility] [address] [place] [address] Physician Strike Warfare/Missile Systems Officer 03/17/19 09/08/19 Tiffanei Nguyen, HONEY EXTRACTOR-AUTO SLIP COVER INSTALLER [facility] [address] [place] [address] Family Medicine 03/17/19 Stephanie Mahoney, RN Registered Nurse 03/17/19 10/29/21 Alycia Galvan, ROSEMARY 03/17/19 10/29/21 Cesar Tavares MD Professional [address] [place] [address] Referring Physician Medical Oncology 03/23/19 documented as of this encounter
--- OUTSIDE RECORDS SUMMARY | 2024-08-18 00:36 | XMS_ITS | Encounter Summary ---
Author Organization [facility] Address [address] [place] [address] Care Team Providers Care Artists' Model Name Role Phone Hillary Apple MD Unavailable [phone] Bill Ferrera MD Unavailable [phone] Tony Dumont MD Unavailable [phone] Shalini Segal MD Unavailable [phone] Karie Jones RN Unavailable Unavailable Maryjo Reinoso LCSW Unavailable Unavailable Madyson Clay PharmD Unavailable Unavaila Dana Galicia RESEARCH AIDE-SENIOR HYDROGEOLOGIST Unavailable [phone] Mckinley Silver-C Unavailable Unavail able PatrickTiffanie RESEARCH AIDE-ROBOTIC MACHINE TENDER PRODUCTION Unavailable [phone] Stephanie Mahoney RN Unavailable Unavailable Alycia Galvan RN Unavailable UnavailRan Mejía MD Primary Care Provider Cesar Tavares MD Unavailable [phone] Encounter Details Date Type Department Care Team (Late st Contact Info) Description 05/31/2019 Telephone [facility] CLINIC [address] [place] [address] Karie Jones, RN Social History [...] Encounter - Karie Jones RN - 05/31/2019 9:28 AM CDT Left message that I had scheduled him for a CT scan, Fibroscan, and a BM bx for 06/09. Asked him to call me to discuss prep for these tests, left name and number. documented in this encounter Plan of Treatment Upcoming Encounters Date Type Department Care Team (Late st Contact Info) Description 08/26/2024 11:00 AM TRAVELING NURSE Office Visit [facility] - Pulmonology [address] [place] [address], [place] [address] Andrew Francis MD [address] [place] [address] DIV OF PULMONARY/[place] [address] documented as of this encounter Visit Diagnoses Not on filedocumented in this encounter Care Teams Artists' Model Relationship Specialty Start Date End Date Ran Nuñez MD [address] [facility] [place] [address] PCP - General Family Medicine 03/22/19 12/22/20 Hillary Apple MD [address] [place] [address] Hematology and Oncology 03/17/19 Bill Ferrera MD [address] [place] [address] Hematology and Oncology 03/17/19 08/27/21 Tony Dumont MD [facility] [place] [address] Hematology and Oncology 03/17/19 Shalini Segal MD [address] [place] [address] Hematology and Oncology 03/17/19 09/29/19 Karie Jones, RN Registered Nurse 03/17/19 09/21/19 Maryjo Reinoso, TILE APPLICATOR Drug Purchaser 03/17/19 Madyson Clay, PharmD 03/17/19 Dana Lala, RESEARCH AIDE-SENIOR HYDROGEOLOGIST [facility] [facility] 2nd [place] [address] Oncology 03/17/19 Mckinley Silver PA-C [facility] 2nd [place] [address] Physician Forest Supervisor 03/17/19 09/08/19 Tiffanie Nguyen RESEARCH AIDE-ROBOTIC MACHINE TENDER PRODUCTION [address] [place] [address] [place] [address] Family Medicine 03/17/19 Stephanie Mahoney, RN Registered Nurse 03/17/19 10/29/21 Alycia Galvan, RN 03/17/19 10/29/21 Cesar Tavares MD [address] [place] [address] [place] [address] Referring Physician Medical Oncology 03/23/19 documented as of this encounter
--- OUTSIDE RECORDS SUMMARY | 2024-08-18 00:36 | XMS_ITS | Encounter Summary ---
Author Organization [facility] Address [address] [facility] [place] [address] Care Team Providers Care Visual Basic .Net Developer Name Role Phone Hillary Apple MD Unavailable [phone] Bill Ferrera MD Unavailable [phone] Tony Dumont MD Unavailable [phone] Shalini Segal MD Unavailable [phone] Karie Jones RN Unavailable Unavailable Maryjo Reinoso LCSW Unavailable Unavailable Madyson Clay PharmD Unavailable Unavaila Dana Galicia COARSE WIRE DRAWER-SHOE SPRAYER Unavailable [phone] Mckniley Silver-C Unavailable Unavail able PatrickTiffanie COARSE WIRE DRAWER-HEALTH POLICY ANALYST Unavailable [phone] Stephanie Mahoney RN Unavailable Unavailable Alycia Galvan RN Unavailable UnavailRan Mejía MD Primary Care Provider Cesar Tavares MD Unavailable [phone] Encounter Details Date Type Department Care Team (Late st Contact Info) Description 04/13/2019 Telephone [facility] BMT CLINIC [address] [place] [address] Karie Jones, RN Social History [...] st Contact Info) Description 08/26/2024 11:00 AM VOIP ENGINEER Office Visit [facility] - Pulmonology [address] [facility], [place] [address] Andrew Francis MD [address] [place] [address] 2L DIV OF PULMONARY/[place] [address] documented as of this encounter Visit Diagnoses Not on filedocumented in this encounter Care Teams Visual Basic .Net Developer Relationship Specialty Start Date End Date Ran Nuñez MD [address] [place] [address] PCP - General Family Medicine 03/22/19 12/22/20 Hillary Apple MD [address] [place] [address] Hematology and Oncology 03/17/19 Bill Ferrera MD [address] [place] [address] Hematology and Oncology 03/17/19 08/27/21 Tony Dumont MD [address] [place] [address] Hematology and Oncology 03/17/19 Shalini Segal MD [address] [place] [address] Hematology and Oncology 03/17/19 09/29/19 Karie Jonse, ROSEMARY Registered Nurse 03/17/19 09/21/19 Maryjo Reinoso, REYNA Trackmobile Operator 03/17/19 Madyson Clay, PharmD 03/17/19 Dana Lala, COARSE WIRE DRAWER-SHOE SPRAYER [address] [facility] 2nd [place] [address] Oncology 03/17/19 Mckinley Silver PA-C [address] [place] [address] Physician Cnc Mill Operator 03/17/19 09/08/19 Tiffanie Nguyen, COARSE WIRE DRAWER-HEALTH POLICY ANALYST [address] [address] Family Medicine 03/17/19 Stephanie Mahoney, RN Registered Nurse 03/17/19 10/29/21 Alycia Galvan, ROSEMARY 03/17/19 10/29/21 Cesar Tavares MD [address] [place] [address] Referring Physician Medical Oncology 03/23/19 documented as of this encounter
--- OUTSIDE RECORDS SUMMARY | 2024-08-18 00:36 | XMS_ITS | Encounter Summary ---
Author Organization [facility] Address [address] [facility] [place] [address] Care Team Providers Care Wharf Labourer Name Role Phone Hillary Apple MD Unavailable [phone] Bill Ferrera MD Unavailable [phone] Tony Dumont MD Unavailable [phone] Shalini Segal MD Unavailable [phone] Karie Jones RN Unavailable Unavailable Maryjo Reinoso LCSW Unavailable Unavailable Madyson Clay PharmD Unavailable Unavaila Dana Galicia IVORY CARVER-GERIATRIC SOCIAL WORK PROFESSOR Unavailable [phone] Mckinley SilverC Unavailable Unavail able PatrickTiffanie hammer APRN-KNITTING MACHINE OPERATOR HELPER Unavailable [phone] Stephanie Mahoney RN Unavailable Unavailable Alycia Galvan RN Unavailable UnavailRan Mejía MD Primary Care Provider Cesar Tavares MD Unavailable [phone] Karie Jones RN Unavailable Unavailable Reason for Visit * Radiology Services (Routine) - Closed Specialty Diagnoses / Procedures Referred By Contjohn t Referred To Contact CT Scan Diagnoses Diffuse large B-cell lymphoma, unspecified body region (HCC) Procedures CT ABDOMEN PELVIS W CONTRAST Patrick, Tiffanie Seymour APRN-KNITTING MACHINE OPERATOR HELPER [address] [place] [address] [facility] [address] [place] [address] Referral ID Status Reason Start Date Expiration Date Visits Re quested Visits Authorized [id number] Closed 05/24/2019 11/20/2019 1 1 Encounter Details Date Type Department Care Team (Latest Contact Info) Description 06/09/2019 3:01 PM CINDER BLOCK MAKER - 06/09/2019 11:59 PM CINDER BLOCK MAKER Hospital Encounter [facility] CAT SCAN [address] [place] [id number] Tiffanie Nguyen, IVORY CARVER-KNITTING MACHINE OPERATOR HELPER [address] [place] [address] Discharge Disposition: Home or Self Care Social [...] st Contact Info) Description 08/26/2024 11:00 AM CINDER BLOCK MAKER Office Visit [facility] - Pulmonology [address] [place] [address], [place] [address] Andrew Francis MD [address] [place] [address] 2L DIV OF PULMONARY/[place] [address] documented as of this encounter Procedures Procedure Name Priority Date/Time Associated Diagnosis Comments CT ABDOMEN PELVIS W CONTRAST Routine 06/09/2019 3:37 PM CINDER BLOCK MAKER Diffuse large B-cell lymphoma, unspecified body region (HCC) documented in this encounter Results * CT ABDOMEN PELVIS W CONTRAST (06/09/2019 3:37 PM CINDER BLOCK MAKER) Anatomical Region Laterality Modality Abdomen, Pelvis Computed Tomogra phy 06/09/2019 3:59 PM CINDER BLOCK MAKER Impressions 06/10/2019 5:08 PM CINDER BLOCK MAKER IMPRESSION: 1. The spleen is enlarged, measuring 17.9 cm craniocaudally. This is decreased from 03/02/2019. 2. No acute process identified in the abdomen or pelvis. Dictated by Love Rowland MD (vice president quality). I, Dr. NARGIS VELAZQUEZ M.D. have personally reviewed and interpreted this examination/study. This report was electronically signed by NARGIS VELAZQUEZ M.D. ??on 06/10/2019 5:08 PM . Narrative 06/10/2019 5:08 PM CINDER BLOCK MAKER EXAMINATION: Computed tomography (CT) of the abdomen [...] or pelvis. Dictated by Love Rowland MD (vice president quality). I, Dr. NARGIS VELAZQUEZ M.D. have personally reviewed and interpretedthis examination/study. This report was electronically signed by NARGIS VELAZQUEZ M.D. on 06/10/2019 5:08 PM . Tiffanie Nguyen IVORY CARVER-KNITTING MACHINE OPERATOR HELPER CT ORDERABLES documented in this encounter Visit Diagnoses Diagnosis Diffuse large B-cell lymphoma, unspecified body region (HCC) documented in this encounter Administered Medications Inactive Administered Medications - up to 3 most recent administrations Medication Order MAR Action Action Date Dose Rate Site iopamidol (ISOVUE 370) 76 % contrast Intravenous, CONTRAST ONCE, Starting on 06/09/19 at 1515, Until Ofelia 06/10/19 at 0141 $ Given - Contrast 06/09/2019 3:33 PM CINDER BLOCK MAKER 100 mL documented in this encounter Care Teams Wharf Labourer Relationship Specialty Start Date End Date Ran Nuñez MD [address] [place] [address] PCP - General Family Medicine 03/22/19 12/22/20 Hillary Apple MD [address] [place] [address] Hematology and Oncology 03/17/19 Bill Ferrera MD [address] [place] [address] Hematology and Oncology 03/17/19 08/27/21 Tony Dumont MD [facility] [place] [address] Hematology and Oncology 03/17/19 Shalini Segal MD [facility] [place] [address] Hematology and Oncology 03/17/19 09/29/19 Karie Jones, RN Registered Nurse 03/17/19 09/21/19 Maryjo Reinoso LCSW Senior C Web Developer 03/17/19 Madyson Clay, PharmD 03/17/19 Dana Lala, IVORY CARVER-GERIATRIC SOCIAL WORK PROFESSOR [address] [place], [place] [address]TA [facility] 2[place] [address] Oncology 03/17/19 Mckinley Silver PA-C [address] [place] [address] [address]nd [place] [address] Physician Oracle Database Architect 03/17/19 09/08/19 Tiffanie Nguyen, IVORY CARVER-KNITTING MACHINE OPERATOR HELPER [address] [place] [address] [place] [address] Family Medicine 03/17/19 Stephanie Mahoney, RN Registered Nurse 03/17/19 10/29/21 Alycia Galvan, ROSEMARY 03/17/19 10/29/21 Cesar Tavares MD [address] [place] [address] Referring Physician Medical Oncology 03/23/19 Karie Jones, RN Registered Nurse 06/08/19 10/29/21 documented as of this encounter
--- OUTSIDE RECORDS SUMMARY | 2024-08-18 00:36 | XMS_ITS | Encounter Summary ---
Author Organization [facility] Address [address] [facility] [place] [address] Care Team Providers Care Patient Partner Name Role Phone Hillary Apple MD Unavailable [phone] Bill Ferrera MD Unavailable [phone] Tony Dumont MD Unavailable [phone] Shalini Segal MD Unavailable [phone] Karie Jones RN Unavailable Unavailable Maryjo ReinosoW Unavailable Unavailable Madyson Clay PharmD Unavailable Unavaila Dana Galicia [employer]-WEB MERCHANT Unavailable [phone] Mckinley Silver-C Unavailable Unavail able PatrickTiffanie [employer] PHOTOGRAPHS-POUNCER MACHINE Unavailable [phone] Stephanie Mahoney RN Unavailable Unavailable Alycia Galvan RN Unavailable UnavailRan Mejía MD Primary Care Provider Cesar Tavares MD Unavailable [phone] Karie Jones RN Unavailable Unavailable Encounter Details Date Type Department Care Team (Latest Contact Info) Description 06/09/2019 1:24 PM CURATOR OF PHOTOGRAPHY AND PRINTS - 06/09/2019 3:00 PM CURATOR OF PHOTOGRAPHY AND PRINTS Hospital Encounter [facility] [address] [place] [address] Bill Ferrera MD [address] [place] [address] Rd [address] [place] [address] Tiffanie Nguyen, [employer] PHOTOGRAPHS-POUNCER MACHINE [address] [place] [address] Discharge Disposition: Home or Self Care Social [...] Sign Reading Time Taken Comments Blood Pressure 124/81 06/09/2019 2:25 PM [employer]ATOR OF PHOTOGRAPHY AND PRINTS Pulse 69 06/09/2019 2:25 PM [employer] PHOTOGRAPHY AND PRINTS Temperature 36.7 ??C (98 ??F) 06/09/2019 1:27 PM [employer] PHOTOGRAPHY AND PRINTS Respiratory Rate 18 06/09/2019 2:25 PM [employer] PHOTOGRAPHY AND PRINTS Oxygen Saturation 100% 06/09/2019 2:25 PM [employer] PHOTOGRAPHY AND PRINTS Inhaled Oxygen Concentration - - Weight 120.2 kg (264 lb 14.4 oz) 06/09/2019 1:27 PM CURATOR OF PHOTOGRAPHY AND PRINTS Height - - Body Mass Index 41.49 06/09/2019 1:07 PM [employer] PHOTOGRAPHY AND PRINTS documented in this encounter Medications at Time [...] encounter Progress Notes * Tia Varghese - 06/09/2019 4:10 PM CST Post BMBx supervisor of way 1. Start 1400 and stop time 1415 2. Patient received a. Fentanyl 100mcg b. Ativan 0.5mg 3. Vital signs a. Compare to pre procedure vital signs WNL 4. Tolerance to procedure a. Complains of no pain i. Will do post procedure call on Friday06/12/19 b. No significant blood loss 5. Bandage site assessed to be a. Dry and intact 6. 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 Patient education material given a. Care post BMBx teaching sheet given b. Instructions to call BMT clinic for any procedure related complications 8. Disposition a. 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 Complications: None Time start: 1400 Time end: 1415 JIE BallP-BC Blood and Marrow Transplant Clinic [facility] [employer] OF PHOTOGRAPHY [employer] PRINTS documented in this encounter Plan of Treatment Upcoming Encounters Date Type Department Care Team (Late st Contact Info) Description 08/26/2024 11:00 AM CURATOR OF PHOTOGRAPHY AND PRINTS Office Visit [facility] - Pulmonology [address] [facility], [place] [address] Andrew Francis MD [address] [place] [address] 2L DIV OF PULMONARY/[place] [address] documented as of this encounter Procedures Procedure Name Priority Date/Time Associated Diagnosis Comments FLOW CYTOMETRY BONE MARROW Routine 06/09/2019 2:15 PM CURATOR OF PHOTOGRAPHY AND PRINTS B-cell lymphoma, unspecified B-cell lymphoma type, unspecified body region (HCC) HOLD SPECIMEN DNA TISSUE Routine 06/09/2019 2:15 PM CURATOR OF PHOTOGRAPHY AND PRINTS B-cell lymphoma, unspecified B-cell lymphoma type, unspecified body region (HCC) BONE MARROW BIOPSY (STL) Routine 06/09/2019 2:15 PM CURATOR OF PHOTOGRAPHY AND PRINTS B-cell lymphoma, unspecified B-cell lymphoma type, unspecified body region (HCC) CBC W AUTO DIFFERENTIAL STAT 06/09/2019 1:41 PM CURATOR OF PHOTOGRAPHY AND PRINTS Diffuse large B-cell lymphoma, unspecified body region (HCC) COMPREHENSIVE METABOLIC PANEL STAT 06/09/2019 1:41 PM [employer] PHOTOGRAPHY AND PRINTS Diffuse large B-cell lymphoma, unspecified body region (HCC) PHOSPHORUS BLOOD STAT 06/09/2019 1:41 PM [employer] PHOTOGRAPHY AND PRINTS Diffuse large B-cell lymphoma, unspecified body region (HCC) MAGNESIUM BLOOD STAT 06/09/2019 1:41 PM [employer]ATOR [employer] PHOTOGRAPHY AND PRINTS Diffuse large B-cell lymphoma, unspecified body region (HCC) documented in this encounter Results * HOLD SPECIMEN DNA TISSUE (06/09/2019 2:15 PM CURATOR OF PHOTOGRAPHY AND PRINTS) HOLD SPECIMEN DNA RESULT 114 ng/uL 06/18/2019 2:53 PM CURATOR OF PHOTOGRAPHY AND PRINTS [facility] BONE MARROW SPECIMEN / Unknown 06/09/2019 2:15 PM CURATOR OF PHOTOGRAPHY AND PRINTS 06/09/2019 2:31 PM CURATOR OF PHOTOGRAPHY AND PRINTS Narrative [facility] - 06/18/2019 2:53 PM CURATOR OF PHOTOGRAPHY AND PRINTS No specific testing was performed at this time. The DNA will be stored for future testing. This test was developed and its performance characteristics determined by the DNA Diagnostic Laboratory at [facility]. ??It has not been cleared or approved [...] preform high complexity clinical laboratory testing. Tiffanie [facility] - PATHOLOGY /CYTOLOGY ORDERABLES Performing Organization Address [facility]/State/[facility] Co de Phone Number [facility] [address] [facility]. [address] [phone] * FLOW CYTOMETRY BONE MARROW (06/09/2019 2:15 PM CURATOR OF PHOTOGRAPHY AND PRINTS) [facility] Case Report Flow Cytometry ?Case: [id number] ? Authorizing Provider: ??Tiffanie Nguyen APRN-CNP Collected: ? 06/09/2019 02:15 PM ? Ordering Location: ? [facility] ? Received: ?06/09/2019 02:31 PM ? Pathologist: ? Alecia Neri MD ? Specimen: ?Bone Marrow ? 06/10/2019 1:33 PM [facility] Final Diagnosis Bone marrow, flow cytometric immunophenotypic analysis: - No evidence of non-Hodgkin lymphoma or high-grade myeloid neoplasm. - See interpretation. 06/10/2019 1:33 PM [facility] Flow Cytometry Interpretation The bone marrow specimen has a viability of 93%. The lymphocyte, dim CD45, monocyte, and granulocyte egan are normal in relative proportion. Within the lymphocyte gate, there is no significant B-cell population identified. There is no expanded T-cell population seen. By CD34, 2% of all events analyzed are blasts. A bone marrow aspirate smear prepared from the flow cytometry specimen is reviewed for aerospace quality engineer purposes. The bone marrow aspirate specimen shows no evidence of involvement by non-Hodgkin lymphoma or a high-grade myeloid neoplasm. Correlation with clinical findings, the concurrent bone marrow core biopsy ([id number]), and relevant cytogenetic/molecu lar studies is required. KR/MM 06/10/2019 1:33 PM [facility] Flow Cytometry Results Differential Result Comment Flow Cell Count /uL 12,900 Total Viability % 93.0 Lymphocytes % 5 Dim CD45 Region % 6 Monocytes % 4 Granulocytes % 84 06/10/2019 1:33 PM [facility] Reason for test B-cell lymphoma, unspecified B-cell lymphoma type, unspecified body region 06/10/2019 1:33 PM [facility] Client Specimen ID # [id number] 06/10/2019 1:33 PM [facility] Number of markers 13 were performed. A-1 Flow CD3 A-3 Flow CD10 A-5 Flow CD20 A-6 Flow CD23 A-11 Flow CD25 A-12 Flow CD103 A-13 Flow CD11c A-2 Flow CD5 A-4 Flow CD19 A-7 Flow CD34 A-8 Flow CD45 A-9 [place]+CD19+ A-10 Lambda+CD19+ 06/10/2019 1:33 PM [facility] Disclaimer Test performed at [facility], [address] [place] [address], [address]. *The established laboratory minimum viability is 70%. [...] qualified to perform high complexity clinical testing. 06/10/2019 1:33 PM [facility] Embedded Images 9 1:33 PM [facility] Pathology/Cytolo gy BONE MARROW SPECIMEN / Unknown Collection / Unknown 06/09/2019 2:15 PM CURATOR OF PHOTOGRAPHY AND PRINTS 06/09/2019 2:31 PM CURATOR OF PHOTOGRAPHY AND PRINTS Tiffanie [facility] - PATHOLOGY /CYTOLOGY ORDERABLES Performing Organization Address [facility]/State/[facility] Co de Phone Number [facility] [address] [place] [address]. [address] [phone] * BONE MARROW BIOPSY (STL) (06/09/2019 2:15 PM CURATOR OF PHOTOGRAPHY AND PRINTS) Case Report Bone Marrow Patholog y Report ?Case: [id number] ? Authorizing Provider: ??Tiffanie Nguyen APRN-CNP Collected: ? 06/09/2019 02:15 PM ? Ordering Location: ? [facility] ? Received: ?06/09/2019 02:31 PM ? Pathologist: ? Alecia Neri, ? Specimens: ?? A) - Bone Marrow Clot ? B) - Bone Marrow Core ? C) - Bone Marrow Aspirate ? D) - Blood Peripheral ? 06/10/2019 5:43 PM CURATOR OF PHOTOGRAPHY AND PRINTS [facility] Final Diagnosis Bone marrow, aspirate, clot section, and core biopsy: - Normocellular marrow with maturing trilineage hematopoiesis. - Non-necrotizing granuloma formation. - Decreased storage iron. - No evidence of residual/recurrent lymphoma. - See description. Peripheral blood smear: - Leukopenia. - Normochromic, microcytic anemia. - Thrombocytopenia. - See description. 06/10/2019 5:43 PM [facility] Comment Overall, the bone marrow specimen is normocellular for age with maturing trilineage hematopoiesis and no evidence of residual/recurrent lymphoma. There are focal non-necrotizing granulomas with associated T-cells. These were also noted in the patient's prior bone marrow biopsy ([id number]) and are of uncertain significance. Special stains for fungal organisms and acid fast bacilli are negative. Correlation with clinical findings is required. KR/NK 06/10/2019 5:43 PM [facility] Peripheral Smear Description Manual Differential Count (100 cells): 72% neutrophils, 18% lymphocytes, 6% monocytes, and 4% eosinophils. Leukocyte number: decreased. Granulocyte morphology: normal. Lymphocyte morphology: normal. Erythrocyte number: normal. Erythrocyte morphology: mildly microcytic. Anisopoikilocytosis: mild. Polychromasia: not significant. Platelet number: decreased. Platelet morphology: normal. 06/10/2019 5:43 PM [facility] Bone Marrow Aspirate Differential count (200 cells): 1% blasts, 56.5% maturing myeloid precursors, 32.5% erythroid progenitors, 1% monocytes, 6.5% eosinophils, and 2.5 % lymphocytes. Specimen quality: adequate. Spicules: present. Trilineage Hematopoiesis: present. Myeloid:Erythroid ratio: normal, 2:1. Myeloid Maturation: normal. Erythroid Maturation: normal. Megakaryocyte morphology: normal size and nuclear lobation. Storage iron (by special stain): decreased. Sideroblastic iron (by special stain): decreased. No ring sideroblasts. Control is appropriately reactive. 06/10/2019 5:43 PM [facility] Bone Marrow Core Biopsy and Clot Section Description Specimen quality: Adequate. Cellularity: Normocellular, 50-60%. Trilineage Hematopoiesis: present. Myeloid to Erythroid ratio: normal. Myeloid maturation and localization: normal Erythroid maturation and localization: normal. Megakaryocyte number: normal. Megakaryocyte distribution: normal. Bone trabeculae: normal. Blood vessels: normal. Other: There are rare non-necrotizing granulomas identified with associated lymphocytes at the periphery. These foci are paratrabecular in distribution. No polarizable material is present within them. Clot section marrow particles: present. Clot section morphology: similar to core biopsy. To further evaluation the granulomas, special stains for fungal and acid fast organisms are performed on the bone marrow core biopsy. GMS and AFB stains are negative. To further assess the lymphocytes present in conjunction with the granulomas, immunohistochemistry is performed. CD3 confirms that the majority of lymphocytes are T-cells. CD20 is essentially negative. PAX-5 highlights rare, single, small B-cells in the interstitium, not associated with the granulomas. All controls are appropriately reactive. 06/10/2019 5:43 PM [facility] Flow Cytometry Summary Concurrent bone marrow flow cytometry ([id number]) also shows no evidence of residual/recurrent lymphoma or high grade myeloid neoplasm. 06/10/2019 5:43 PM [facility] Clinical History The patient is a 49-year-old man with relapsed B-cell lymphoma status post two cycles bendamustine/Gazyva. Operative Procedure: Bone marrow biopsy. 06/10/2019 5:43 PM [facility] Gross Description The requisition and specimen labels are identified with the patient name, Marcello Guillen Received fresh, specimen A, asp, is 4 cc of fluid like blood. The specimen is wrapped in tissue paper and entirely submitted in cassette A1. Received in formalin, specimen B, core, are two cores of red-guerra bony tissue measuring 0.8 and 0.6 cm long, both x 0.2 cm diameter. The specimen is entirely submitted in cassette B1 following 1 hour decalcification in [employer]. ALIYAH/mark 06/10/2019 5:43 PM [facility] Disclaimer The performance characteristics of all immunohistochemical and indirect immunofluorescence stains (if any) cited in this report were determined by the Histopathology Laboratory of [facility]. Some of these tests were developed [...] and interpreted by the attending (teaching) pathologist. 06/10/2019 5:43 PM CURATOR OF PHOTOGRAPHY AND PRINTS [facility] Embedded Images 06/10/2019 5:43 PM CURATOR OF PHOTOGRAPHY AND PRINTS [facility] Pathology/Cytology PERIPHERAL BLOOD / Unknown Collection / Unknown 06/09/2019 2:15 PM CURATOR OF PHOTOGRAPHY AND PRINTS 06/09/2019 2:31 PM CURATOR OF PHOTOGRAPHY AND PRINTS Miscellaneous samples (specimen) BONE MARROW SPECIMEN / Unknown 06/09/2019 2:15 PM CURATOR OF PHOTOGRAPHY AND PRINTS 06/09/2019 3:33 PM CURATOR OF PHOTOGRAPHY AND PRINTS Miscellaneous samples (specimen) SPECIMEN FROM BONE MARROW OBTAINED BY ASPIRATION / Unknown 06/09/2019 2:15 PM CURATOR OF PHOTOGRAPHY AND PRINTS 06/09/2019 3:33 PM [employer]ATOR [employer] PHOTOGRAPHY AND PRINTS Miscellaneous samples (specimen) PERIPHERAL BLOOD / Unknown 06/09/2019 2:15 PM CURATOR OF PHOTOGRAPHY AND PRINTS 06/09/2019 3:33 PM CURATOR OF PHOTOGRAPHY AND PRINTS Lara Patrick [employer] SCHO[employer] PHOTOGRAPHSSHRINERS CHILDR[facility] - PATHOLOGY /CYTOLOGY ORDERABLES Performing Organization Address City/[facility]/ZIP Co de Phone Number [facility] [address] [phone] * PHOSPHORUS BLOOD (06/09/2019 1:41 PM CURATOR OF PHOTOGRAPHY AND PRINTS) Phosphorus 3.4 2.3 - 4.7 mg/dL 06/09/2019 2:06 PM CURATOR OF PHOTOGRAPHY AND PRINTS [facility] Blood BLOOD SPECIMEN / Unknown Venipuncture / Unknown 06/09/2019 1:41 PM [employer]ATOR OF PHOTOGRAPHY AND PRINTS 06/09/2019 1:45 PM CURATOR OF PHOTOGRAPHY AND PRINTS Lara Patrick [facility] - CHEMISTRY ORDERABLES [facility] [address] [place] [address] * MAGNESIUM BLOOD (06/09/2019 1:41 PM CURATOR OF PHOTOGRAPHY AND PRINTS) Magnesium 1.9 1.6 - 2.6 mg/dL 06/09/2019 2:06 PM CURATOR OF PHOTOGRAPHY AND PRINTS [facility] Blood BLOOD SPECIMEN / Unknown Venipuncture / Unknown 06/09/2019 1:41 PM CURATOR OF PHOTOGRAPHY AND PRINTS 06/09/2019 1:45 PM CURATOR OF PHOTOGRAPHY AND PRINTS Tiffanie Nguyen [employer]POUNCER MACHINE LAB - CHEMISTRY ORDERABLES [facility] [address] [place] [address] * (ABNORMAL) CBC W AUTO DIFFERENTIAL (06/09/2019 1:41 PM CURATOR OF PHOTOGRAPHY AND PRINTS) WBC 2.7(L) 3.5 - 10.5 10? 3 /uL 06/09/2019 1:51 PM [facility] RBC 4.55 4.30 - 5.70 10? 6 /uL 06/09/2019 1:51 PM [facility] Hemoglobin 12.2(L) 13.5 - 17.5 g/dL 06/09/2019 1:51 PM [facility] Hematocrit 36.5(L) 39.0 - 50.0 % 06/09/2019 1:51 PM [facility] MCV 80.2(L) 81.0 - 97.0 fL 06/09/2019 1:51 PM [facility] MCH 26.8(L) 28.0 - 34.0 pg 06/09/2019 1:51 PM [facility] MCHC 33.4 32.0 - 36.0 g/dL 06/09/2019 1:51 PM [facility] Platelet Count 40(L) 150 - 400 10? 3 /uL 06/09/2019 1:51 PM [facility] Comment:Checked with the pre vious result. RDW-SD 53.7(H) 36.0 - 50.0 fL 06/09/2019 1:51 PM [facility] RDW-CV 18.5(H) 11.2 - 14.8 % 06/09/2019 1:51 PM [facility] MPV 06/09/2019 1:51 PM [facility] Comment:Unable to report. nRBC Absolute 0.00 0 10? 3 /uL 06/09/2019 1:51 PM [facility] nRBC Auto 0.0 0 /100 WBC 06/09/2019 1:51 PM [facility] Neutrophils % 67.2 35.0 - 70.0 % 06/09/2019 1:51 PM [facility] Lymphocytes % 16.6(L) 19.7 - 55.1 % 06/09/2019 1:51 PM [facility] Monocytes % 10.3 3.0 - 15.0 % 06/09/2019 1:51 PM [facility] Eosinophils % 4.4 0.0 - 6.0 % 06/09/2019 1:51 PM [facility] Basophil % 1.1 0.0 - 1.5 % 06/09/2019 1:51 PM [facility] Neutrophils Absolute 1.8 1.6 - 7.0 10? 3 /uL 06/09/2019 1:51 PM [facility] Lymphocyte Absolute 0.5(L) 0.8 - 2.9 10? 3 /uL 06/09/2019 1:51 PM [facility] Monocytes Absolute 0.28 0.14 - 0.66 10? 3 /uL 06/09/2019 1:51 PM [facility] Eosinophils Absolute 0.12 0.00 - 0.45 10? 3 /uL 06/09/2019 1:51 PM [facility] Basophils Absolute 0.03 0.00 - 0.06 10? 3 /uL 06/09/2019 1:51 PM [facility] Immature Granulocytes % 0.4 0.0 - 1.0 % 06/09/2019 1:51 PM [facility] Blood BLOOD SPECIMEN / Unknown Venipuncture / Unknown 06/09/2019 1:41 PM CURATOR OF PHOTOGRAPHY AND PRINTS 06/09/2019 1:45 PM [facility] Tiffanie Nguyen [employer]GR[employer]-POUNCER MACHINE LAB - HEMATOLOG Y ORDERABLES [address] [phone] * (ABNORMAL) COMPREHENSIVE METABOLIC PANEL (06/09/2019 1:41 PM CURATOR OF PHOTOGRAPHY AND PRINTS) BUN 16 7 - 26 mg/dL 06/09/2019 2:06 PM [facility] Creatinine 1.0 0.6 - 1.2 mg/dL 06/09/2019 2:06 PM [facility] Sodium 143 136 - 145 mmol/L 06/09/2019 2:06 PM [facility] Potassium 4.3 3.5 - 4.5 mmol/L 06/09/2019 2:06 PM [facility] Chloride 109(H) 98 - 107 mmol/L 06/09/2019 2:06 PM [facility] CO2 26 22 - 29 mmol/L 06/09/2019 2:06 PM [facility] Glucose 84 70 - 115 mg/dL 06/09/2019 2:06 PM [facility] Calcium 9.4 8.4 - 10.2 mg/dL 06/09/2019 2:06 PM [facility] Protein Total 6.3 6.0 - 8.3 g/dL 06/09/2019 2:06 PM [facility] Albumin 4.3 3.4 - 5.0 g/dL 06/09/2019 2:06 PM [facility] Bilirubin Total 0.3 0.2 - 1.2 mg/dL 06/09/2019 2:06 PM [facility] Alkaline Phosphatase 70 40 - 150 Units/L 06/09/2019 2:06 PM [facility] ALT 30 0 - 55 Units/L 06/09/2019 2:06 PM [facility] AST 22 5 - 34 Units/L 06/09/2019 2:06 PM [facility] Anion Gap 12 8 - 18 06/09/2019 2:06 PM [facility] BUN/Creatinine Ratio 16 7 - 23 06/09/2019 2:06 PM [facility] Osmolality Calculated 296 270 - 300 mOsm/kg 06/09/2019 2:06 PM [facility] Albumin/Globulin Ratio 2.2 1.1 - 2.3 06/09/2019 2:06 PM [facility] eGFR >60 >60 mL/min/1.7 3 m2 06/09/2019 2:06 PM [facility] Blood BLOOD SPECIMEN / Unknown Venipuncture / Unknown 06/09/2019 1:41 PM CURATOR OF PHOTOGRAPHY AND PRINTS 06/09/2019 1:45 PM [facility] Tiffanie Nguyen [employer]GR[employer]-POUNCER MACHINE LAB - CHEMISTRY ORDERABLES [facility] [address] [phone] documented in this encounter Visit Diagnoses Diagnosis [...] 100 mcg, Intravenous, ONCE, 1 dose, On Fri06/09/19 at 1115 $ Given 06/09/2019 2:12 PM CURATOR OF PHOTOGRAPHY AND PRINTS 50 mcg $ Given 06/09/2019 2:02 PM CURATOR OF PHOTOGRAPHY AND PRINTS 50 mcg LORazepam (ATIVAN) injection 1 mg 1 mg, Intravenous, ONCE, 1 dose, On Fri06/09/19 at 1115 $ Given 06/09/2019 1:47 PM CUR[employer] OF PHOTOGRAPHY AND PRINTS 0.5 mg documented in this encounter Care Teams Patient Partner Relationship Specialty Start Date End Date Ran Nuñez MD [address] [place] [phone] PCP - General Family Medicine 03/22/19 12/22/20 Hillary Apple MD [address] [place] [address] Hematology and Oncology 03/17/19 Bill Ferrera MD [address] [place] [address] Hematology and Oncology 03/17/19 08/27/21 Tony Dumont MD [address] [place] [address] Hematology and Oncology 03/17/19 Shalini Segal MD [address] [place] [address] Hematology and Oncology 03/17/19 09/29/19 Karie Jones, ROSEMARY Registered Nurse 03/17/19 09/21/19 Maryjo Reinoso LCSW Motor Pool Clerk 03/17/19 Madyson Clay, PharmD 03/17/19 Dana Lala, [employer]AIL[employer]GR[employer]-WEB MERCHANT [address] [place] [address] Oncology 03/17/19 Mckinley Silver PA-C [address] [address] Physician Inspector Plating 03/17/19 09/08/19 Tiffanie Nguyen, [employer] PH[employer]GRAPHS-POUNCER MACHINE [address] [place] [address] Family Medicine 03/17/19 Stephanie Mahoney, RN Registered Nurse 03/17/19 10/29/21 Alycia Galvan, ROSEMARY 03/17/19 10/29/21 Cesar Tavares MD [address] [place] [address] Referring Physician Medical Oncology 03/23/19 Karie Jones, RN Registered Nurse 06/08/19 10/29/21 documented as of this encounter
--- OUTSIDE RECORDS SUMMARY | 2024-08-18 00:43 | XMS_ITS | Continuity of Care Document ---
Author Organization [facility] Address [address] [facility] [place] [address] Phone Care Team Providers Care Folding Machine Setter Name Role Phone Darcy Yao OD Unavailable [...] Fundus Photos 022 Office/outpatient Visit, [facility] Frames Purchases SV Plastic Sphcyl [place] +/-4d, .12-2d Oc Anti-reflective Coating Advance Directives Directive Yes / No Effective Date File Name No Information Encounters Encounter Description Practice Location Reason(s) For Visit Diagnoses Date Provider Providers Copied on Encounter Office/outpat ient Visit, [facility], [address] [place] [address] [address], [place], [place], [id number], tel:[phone] SEC Andrea Patel PARAFFINER 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 [address] [place] [address], [address], [place], [place], [id number], . tel:[phone] Referring Provider: Darcy Levy, [address] [place] [address] [address], [place], [address] . tel:[phone] [facility], [address] [place], [place] [address], [place], [place], [address], tel:[phone] SEC Andrea Patel No Information 2 [facility] . [address] [facility], [address], [place], [place], [address], . tel:[phone] Referring Provider: Darcy Levy, [address] [place] [address] [address], [place], [address] . tel:[phone] sulting Provider: Alan Mora, [address] [place], [address] . tel:[phone] Family History Family Member Type Diagnosis Age At Onset No Information Payers Payer name Insurance type Covered republican ID Radha laughlin(s) [employer] [id number] Social History Type Description Quantity Date Captured Comments Alcohol Use Details Caffeine Use Details Tobacco Use Status Chews tobacco Smoking Status Unknown if ever smoked Non-Smoking Tobacco Use Details Chewing: No Details Available Chewing: No Details Available Sex Male Chief Complaint And Reason For Visit From encounter dated 05/31/2022 13:30'. PARAFFINER complete exam (chief complaint). Description: The 52 [...] Date Complaint History Of Prese nt Illness PARAFFINER complete exam The 52 year old patient presents for evaluation of PARAFFINER complete exam in the right eye and [...]
== END 2024-08-12 15:07 | disposition home health service (06) ==
LOC: ANHSURGERY 05:54 → ANH3MEDSUR 15:24
PROVIDERS: PCP Family Medicine; Visit Provider Orthopaedic Surgery
PROC: (CPT 27130; principal; 2024-08-11 07:30)
DX: M16.12 Unilateral primary osteoarthritis, left hip (principal); G25.81 Restless legs syndrome; F41.9 Anxiety disorder, unspecified; F32.A Depression, unspecified; F12.90 Cannabis use, unspecified, uncomplicated; E66.9 Obesity, unspecified; Z68.36 Body mass index [BMI] 36.0-36.9, adult; Z79.51 Long term (current) use of inhaled steroids; Z79.891 Long term (current) use of opiate analgesic; Z99.81 Dependence on supplemental oxygen; Z98.890 Other specified postprocedural states; Z90.81 Acquired absence of spleen; Z94.81 Bone marrow transplant status; Z87.442 Personal history of urinary calculi; Z87.891 Personal history of nicotine dependence; Z85.72 Personal history of non-Hodgkin lymphomas; Z86.718 Personal history of other venous thrombosis and embolism
CPT/HCPCS: 27130; 36415; 73502; 80048; 85025; 97110; 97116; 97161; 97165; 97530; 97535; A9270; C1776; J0171; J0690; J1100; J1171; J1741; J1885; J2003; J2250; J2270; J2405; J2704; J2795; J3010; J7120

== ENCOUNTER 2024-09-14 07:20 | Outpatient (CLI) | payer MEDICARE, SELFPAY ==
--- NOTE | ~2024-09-14 | CT_ITS ---
Clinical Indication: Lymphoma CT Scan of the Chest, Abdomen, and Pelvis with Contrast: Technique: Contiguous sections were acquired throughout the chest, abdomen, and pelvis after intraven ous administration of 100 cc of Omnipaque 350. Dose reduction technique was used on this scan by blas estrada automated exposure control and iterative reconstruction technique. The dose-length product (DL P) was 1680.26 mGy-cm. Comparison: 01/13/2024 Findings: Stable single enlarged anterior mediastinal lymph node. The mediastinal soft tissues and vascular str uctures appear normal. Small hiatal hernia present. There is no evidence of pleural or pericardial effusion. Diffuse chronic interstitial disease, with upper lobe predominance, stable from prior exam. No suspic ious pulmonary nodule seen. The liver, pancreas, gallbladder, adrenals and right kidney are within normal limits. Punctate nonobs tructing left renal stone present. Status post splenectomy. No evidence of aortic aneurysm. No lymph adenopathy. No bowel obstruction or bowel wall thickening. Stable haziness in the central mesentery. Urinary bladder is unremarkable. No pelvic mass seen. There is streak artifact from left hip arthropl asty. No ascites. Bilateral L5 pars interarticularis defects are present, with grade 1 anterolisthesi s of L5 over S1. Impression: Stable single enlarged anterior mediastinal lymph node. Stable haziness in the central mesentery. Correlate for mesenteric panniculitis. Stable diffuse chronic interstitial pulmonary disease, with upper lobe predominance. Reviewed, dictated and finalized at [facility]. LING MACHINE OPERATOR Impression: Stable single enlarged anterior mediastinal lymph node. Stable haziness in the central mesentery. Correlate for mesenteric panniculitis . Stable diffuse chronic interstitial pulmonary disease, with upper lobe predomin ance.
--- OUTSIDE RECORDS SUMMARY | 2024-09-14 07:26 | XMS_ITS | Encounter Summary ---
Author Organization [facility] Address [address] [facility] [place] [address] Care Team Providers Care Skiver Operator Name Role Phone Hillary Apple MD Unavailable [phone] Tony Dumont MD Unavailable [phone] Maryjo ReinosoW Unavailable Unavailable Madyson Clay PharmD Unavailable Unavaila Dana Galicia PIECER-HADOOP ADMIN Unavailable + [phone] Tiffanie Nguyen PIECER-AUTOMATION OPERATOR Unavailable [phone] Cesar Tavares MD Unavailable [phone] Joy Bob Unavailable Fanta Ran Augustine MD Primary Care Provider Tony Dumont MD Unavailable [phone] Shalini Segal MD Unavailable [phone] Stefanie Burns RN Unavailable Unavaila Fatemeh Kelly RN Unavailable Unavailable Glenn Hernandez MD Unavailable [phone] Chandana Lu MD Unavailable [phone] Reason for Visit * Reason Onset Date Comments MEDICATION REFILL 04/24/2023 Encounter Details Date Type Department Care Team (Late st Contact Info) Description 04/24/2023 Refill [facility] [address] [place] [address] Hillary Apple MD [address] [facility] [place] [address] MEDICATION REFILL Social History Tobacco Use Types [...] as of this encounter Plan of Treatment Not on file documented as of this encounter Visit Diagnoses Not on filedocumented in this encounter Care Teams Skiver Operator Relationship Specialty Start Date End Date Ran Nuñez MD [address] [place] [address] PCP - General Family Medicine 08/30/21 [place] [address] [place] [address] PCP - Attributed-Stefany MANRIQUEZ 03/04/23 08/21/23 Hillary Apple MD [address] [place] [address] Hematology and Oncology 03/17/[address] [facility] [place] [address] Hematology and Oncology 03/17/19 Maryjo Reinoso, BATCH TANK CONTROLLER Licensed Insurance Sales Agent 03/17/19 Madyson Clay, PharmD 03/17/19 Dana Lala, PIECER-HADOOP ADMIN [address] [facility] [place] [address] Oncology 03/17/19 Tiffanie Nguyen, PIECER-AUTOMATION OPERATOR [address] [facility] [address] [address] Family Medicine 03/17/[address] [facility] [address] [place] [address] Referring Physician Medical Oncology 03/23/19 Joy Bob 09/22/19 Tony Dumont MD [address] [place] [address] Hematology and Oncology 10/30/21 Shalini Segal MD [address] [place] [address] OF HEMATOLOGY & [place] [address] Multiple Punch Press Operator/Oncologist Hematology and Oncology 10/30/21 Stefanie Burns, ROSEMARY Registered Nurse 10/30/21 Fatemeh Bolaños, RN Registered Nurse 10/30/21 Chandana Lu MD [address] [place] [address] Orthopedic Surgery 03/30/24 documented as of this encounter
--- OUTSIDE RECORDS SUMMARY | 2024-09-14 07:26 | XMS_ITS | Encounter Summary ---
Author Organization [facility] Address [address] [facility] [place] [address] Care Team Providers Care Spindle Sander Name Role Phone Hillary Apple MD Unavailable [phone] Tony Dumont MD Unavailable [phone] Maryjo ReinosoW Unavailable Unavailable Madyson Clay PharmD Unavailable Unavaila Dana Galicia WOOLEN TESTER-DELIVERY MANAGER Unavailable + [phone] Tiffanie Nguyen WOOLEN TESTER-DEVICE ENGINEER Unavailable [phone] Cesar Tavares MD Unavailable [phone] Joy Bob Unavailable Fanta Ran Augustine MD Primary Care Provider Tony Dumont MD Unavailable [phone] Shalini Segal MD Unavailable [phone] Stefanie Burns RN Unavailable Unavaila Fatemeh Kelly RN Unavailable Unavailable Glenn Hernandez MD Unavailable [phone] Chandana Lu MD Unavailable [phone] Reason for Visit * Reason Onset Date Comments MEDICATION REFILL 04/24/2023 Encounter Details Date Type Department Care Team (Late st Contact Info) Description 04/24/2023 Refill [facility] [address] [place] [address] Tiffanie Nguyen APRN-DEVICE ENGINEER [address] [place] [address] MEDICATION REFILL Social History Tobacco Use Types [...] (RLS) documented in this encounter Care Teams Spindle Sander Relationship Specialty Start Date End Date Ran Nuñez MD [address] [place] [address] PCP - General Family Medicine 08/30/21 [place] [address] [facility] [facility] [place] [address] PCP - Fatuma-Stefany MANRIQUEZ 03/04/23 08/21/23 Hillary Apple MD [address] [place] [address] Hematology and Oncology 03/17/19 Tony Dumont MD [address] [place] [address] Hematology and Oncology 03/17/19 Maryjo Reinoso, PATTERNMAKER ALL AROUND Physiognomist 03/17/19 Madyson Clay, PharmD 03/17/19 Dana Lala, WOOLEN TESTER-DELIVERY MANAGER [address] [facility] [address] [address] Oncology 03/17/19 Tiffanie Nguyen, WOOLEN TESTER-DEVICE ENGINEER [address] [facility] [address] [address] Family Medicine 03/17/19 Cesar Tavares MD [address] [facility] 2nd [place] [address] Referring Physician Medical Oncology 03/23/19 Joy Bob 09/22/19 Tony Dumont MD [address] [place] [id number] Hematology and Oncology 10/30/21 Shalini Segal MD [facility][note 3][address] [facility] OF [facility] & MEDICAL [place] [address] Wicker Worker/Oncologist Hematology and Oncology 10/30/21 Stefanie Burns, RN Registered Nurse 10/30/21 Fatemeh Bolaños, RN Registered Nurse 10/30/21 Chandana Lu MD [address] [place] [address] Orthopedic Surgery 03/30/24 documented as of this encounter
--- OUTSIDE RECORDS SUMMARY | 2024-09-14 07:27 | XMS_ITS | Encounter Summary ---
Author Organization [facility] Address [address] [facility] [place] [address] Care Team Providers Care Automation Qtp Tester Name Role Phone Hillary Apple MD Unavailable [phone] Tony Dumont MD Unavailable [phone] Maryjo ReinosoW Unavailable Unavailable Madyson Clay PharmD Unavailable Unavaila Dana Galicia ASPHALT PAVING SUPERVISOR-THERAPIST Unavailable + [phone] Tiffanei Nguyen ASPHALT PAVING SUPERVISOR-CONTRACT SERVICEMAN Unavailable [phone] Cesar Tavares MD Unavailable [phone] Joy Bob Unavailable Fanta Ran Augustine MD Primary Care Provider Tony Dumont MD Unavailable [phone] Shalini Segal MD Unavailable [phone] Stefanie Burns RN Unavailable Unavaila Fatemeh Kelly RN Unavailable Unavailable Glenn Hernandez MD Unavailable [phone] Chandana Lu MD Unavailable [phone] Reason for Visit * Reason Onset Date Comments MEDICATION REFILL 12/24/2021 Encounter Details Date Type Department Care Team (Late st Contact Info) Description 12/24/2021 Refill [facility] [address] [place] [address] Tiffanie Nguyen APRN-CONTRACT SERVICEMAN [address] [place] [address] MEDICATION REFILL Social History Tobacco Use Types [...] (RLS) documented in this encounter Care Teams Automation Qtp Tester Relationship Specialty Start Date End Date Ran Nuñez MD [address] [place] [address] PCP - General Family Medicine 08/30/21 [place] [address] [facility] [place] [address] PCP - Attributed-Stefany MANRIQUEZ 03/04/23 08/21/23 Hillary Apple MD [address] [place] [address] Hematology and Oncology 03/17/19 Tony Dumont MD [address] [place] [address] Hematology and Oncology 03/17/19 Maryjo Reinoso, EXECUTIVE SECRETARY SOCIAL WELFARE Cryptologic Technician Technical 03/17/19 Madyson Clay, PharmD 03/17/19 Dana Lala, ASPHALT PAVING SUPERVISOR-THERAPIST [address] [place] [address] Oncology 03/17/19 Tiffanie Nguyen, ASPHALT PAVING SUPERVISOR-CONTRACT SERVICEMAN [address] [facility] 2[place] [address] Family Medicine 03/17/19 Cesar Tavares MD [facility] 2nd [place] [address] Referring Physician Medical Oncology 03/23/19 Joy Bob 09/22/19 Tony Dumont MD [address] [place] [address] Hematology and Oncology 10/30/21 Shalini Segal MD [address] [place] [address] OF HEMATOLOGY & [place] [address] Seasonal Delivery Driver/Oncologist Hematology and Oncology 10/30/21 Stefanie Burns, RN Registered Nurse 10/30/21 Fatemeh Bolaños, RN Registered Nurse 10/30/21 Chandana Lu MD [address] [place] [address] Orthopedic Surgery 03/30/24 documented as of this encounter
--- OUTSIDE RECORDS SUMMARY | 2024-09-14 07:27 | XMS_ITS | Encounter Summary ---
Author Organization [facility] Address [address] [facility] [place] [address] Care Team Providers Care Warning Coordination Meteorologist Name Role Phone Hillary Apple MD Unavailable [phone] Bill Ferrera MD Unavailable [phone] Tony Dumont MD Unavailable [phone] Maryjo Reinoso [facility] Unavailable Unavailable Madyson Clay PharmD Unavailable Unavaila Dana Galicia MANAGER GRAPHIC-EDGE MOLDER Unavailable [phone] Tiffanie Nguyen MANAGER GRAPHIC-CHEESE COOK Unavailable [phone] Stephanie Mahoney RN Unavailable Unavailable Alycia Galvan RN Unavailable UnavailRan Mejía MD Primary Care Provider Cesar Tavares MD Unavailable [phone] Karie Jones RN Unavailable Unavailable Joy Bob Unavailable Fanta Addison Weinstein PharmD Unavailable Unavailab Alida Chang MANAGER GRAPHIC-CHEESE COOK Primary Care Provider Ran Nuñez MD Primary Care Provider Tony Dumont MD Unavailable [phone] Shalini Segal MD Unavailable [phone] Stefanie Burns RN Unavailable Unavaila Fatemeh Kelly RN Unavailable Unavailable Glenn Hernandez MD Unavailable Chandana Lu MD Unavailable Encounter Details Date Type Department Care Team (Late st Contact Info) Description 02/10/2020 Telephone [facility] [address] [place] [address] Stephanie Mahoney RN Social History Tobacco Use [...] stool as of last night. Notified BMT DIRECTOR INVESTOR RELATIONS Tiffanie and we are going to hold off on the biopsy. We will call patient and to reschedule next week. Patient verbalizedunderstanding. documented in this encounter Plan of Treatment Not on [...] COVID-19 Confirmed 03/06/2020 07/14/2020 0 4:33 AM ADMINISTRATIVE ASSISTANT FRONT DESK COVID-19 Under Investigation 03/07/2020 03/07/2020 03/09/2020 8:54 AM CDT COVID-19 Under Investigation 03/29/2020 03/29/2020 03/30/2020 9:42 AM CDT COVID-19 Confirmed 08/31/2020 08/31/2020 1 4:34 AM ADMINISTRATIVE ASSISTANT FRONT DESK COVID-19 Confirmed 09/28/2020 09/28/2020 1 4:33 AM ADMINISTRATIVE ASSISTANT FRONT DESK COVID-19 Under Investigation 11/16/2020 11/16/2020 11/16/2020 6:52 PM CDT COVID-19 Confirmed 11/16/2020 11/16/2020 1 4:35 AM CDT COVID-19 Under Investigation 12/20/2020 12/20/2020 12/20/2020 6:23 PM CDT COVID-19 Under Investigation 04/21/2021 04/21/2021 2021 6:42 AM CDT documented as of this encounter Care Teams Warning Coordination Meteorologist Relationship Specialty Start Date End Date Ran Nuñez MD [address] [place] [address] PCP - General Family Medicine 03/22/19 12/22/20 Alida Marshall APRN-CHEESE COOK [address] [facility] [place] [address] PCP - General Family Medicine 12/23/20 08/29/21 Ran Nuñez MD [address] [place] [address] PCP - General Family Medicine 08/30/21 [place] [address] [place] [address] PCP - [facility] 03/04/23 08/21/23 Hillary Apple MD [address] [place] [address] Hematology and Oncology 03/17/19 Bill Ferrera MD [address] [place] [address] Hematology and Oncology 03/17/19 08/27/21 Tony Dumont MD [address] [place] [address] Hematology and Oncology 03/17/19 Maryjo Reinoso, LABORER DA[employer]Y FARM Benefits Processor 03/17/19 Madyson Clay, PharmD 03/17/19 Dana Lala, MANAGER GRAPHIC-EDGE MOLDER [facility] [address] [place] [address] Oncology 03/17/19 Tiffanie Nguyen MANAGER GRAPHIC-CHEESE COOK [facility] [place] [address] Family Medicine 03/17/19 Stephanie Mahoney, RN Registered Nurse 03/17/19 10/29/21 Alycia Galvan, RN 03/17/19 10/29/21 Cesar Tavares MD [address] [place] [address] Referring Physician Medical Oncology 03/23/19 Karie Jones, RN Registered Nurse 06/08/19 10/29/21 Joy Bob 09/22/19 Addison Shea, PharmD Pharmacist 09/22/19 10/29/21 Tony Dumont MD [address] [place] [address] Hematology and Oncology 10/30/21 Shalini Segal MD [address] [facility] [place] [address] Transmission Specialist/Oncologis t Hematology and Oncology 10/30/21 Stefanie Burns, RN Registered Nurse 10/30/21 Fatemeh Bolaños RN Registered Nurse 10/30/21 Chandana Lu MD [address] [place] [address] Orthopedic Surgery 03/30/24 documented as of this encounter
--- OUTSIDE RECORDS SUMMARY | 2024-09-14 07:27 | XMS_ITS | Encounter Summary ---
Author Organization [facility] Address [address] [place] [address] Care Team Providers Care Logistics/Shipper Name Role Phone Hillary Apple MD Unavailable [phone] Bill Ferrera MD Unavailable [phone] Tony Dumont MD Unavailable [phone] Shalini Segal MD Unavailable [phone] Karie Jones RN Unavailable Unavailable Maryjo Reinoso LCSW Unavailable Unavailable Madyson Clay PharmD Unavailable Unavaila Dana Galicia PRICING CLERK-INSTRUCTOR WATCH ASSEMBLY Unavailable + [phone] Mckinley Silver-C Unavailable Unavail able Patrick, Tiffanie Seymour PRICING CLERK-GLOBAL REGULATORY LEAD Unavailable [phone] Stephanie Mahoney RN Unavailable Unavailable Alycia Galvan RN Unavailable UnavailRan Mejía MD Primary Care Provider Cesar Tavares MD Unavailable [phone] Karie Jones RN Unavailable Unavailable Joy Bob Unavailable Fanta Addison Weinstein PharmD Unavailable Unavailab Alida Chang PRICING CLERK-GLOBAL REGULATORY LEAD Primary Care Provider Ran Nuñez MD Primary Care Provider Tony Dumont MD Unavailable [phone] Shalini Segal MD Unavailable Stefanie Burns RN Unavailable Unavaila Fatemeh Kelly RN Unavailable Unavailable Glenn Hernandez MD Unavailable Chandana Lu MD Unavailable Encounter Details Date Type Department Care Team (Late st Contact Info) Description 03/24/2019 Lab Requisition [facility] [address] [place] [address] Roseline Higgins MD [address] [place] [address] Social History Tobacco Use Types Packs/Day Years Used Date Smoking Tobacco: Never Assessed Sex and Gender Information Value Date Recorded Sex Assigned at Male 03/27/2022 11:34 AM CDT Gender Identity Male 03/27/2022 11:34 AM CDT Sexual Orientation Straight 03/27/2022 11 :34 AM CDT documented as of this encounter Plan of Treatment Not on file documented as of this encounter Procedures Procedure Name Priority Date/Time Associated Diagnosis Comments BONE MARROW BIOPSY (STL) Routine 03/23/2019 10:40 AM CDT documented in this encounter Results * BONE MARROW BIOPSY (STL) (03/23/2019 10:40 AM CDT) Case Report Bone Marrow Patholog y Report Case: [id number] Authorizing Provider: Roseline Higgins MD Collected: 03/23/2019 10:40 AM Ordering Location: [facility] Pathology Lab Received: 03/24/2019 03:08 PM Pathologist: Alecia Neri MD Specimens: A) - Bone Marrow Core, BM19-30 B) - Bone Marrow Clot, BM19-30 C) - Blood Peripheral, BM19-30 D) - Bone Marrow Aspirate, BM19-30 03/25/2019 1:01 PM CDT [facility] PATH[facility] Final Diagnosis Bone marrow, aspirate, clot section, and core biopsy: - Normocellular marrow with maturing trilineage hematopoiesis and approximately 5-10% involvement by B-cell lymphoma. - Non-necrotizing granuloma formation. - Absent storage iron. - See microscopic description. Peripheral blood smear: - Pancytopenia. - See microscopic description. 03/25/2019 1:01 PM [facility] PATHOLOGY LAB Comment In summary, the bone [...] testing is required. KR 03/25/2019 1:01 PM [facility] PATHOLOGY LAB Peripheral Smear Description CBC Data: [...] decreased. Platelet morphology: normal. 03/25/2019 1:01 PM [facility] PATHOLOGY LAB Bone Marrow Aspirate Differential [...] (by special stain): decreased. 03/25/2019 1:01 PM [facility] PATHOLOGY LAB Bone Marrow Core Biopsy [...] the bone marrow core biopsy in the [facility] Department of Pathology. All controls are appropriately [...] and fungal organisms, respectively. 03/25/2019 1:01 PM [facility] PATHOLOGY LAB Flow Cytometry Summary Concurrent flow cytometry ([id number]) shows involvement by a CD5-negative, XO92-hikskfza mature B-cell lymphoma. 03/25/2019 1:01 PM [facility] PATHOLOGY LAB Clinical History 48 year old man with a history of B-cell lymphoma, lymphadenopathy, and splenomegaly, status-post treatment. 03/25/2019 1:01 PM [facility] PATHOLOGY LAB Materials Received Received are 20 slides and 3 blocks labeled as [id number] along with the outside pathology report. [place] [address]. All materials are returned to the referring institution, along with a copy of our final report. 03/25/2019 1:01 PM [facility] PATHOLOGY LAB Disclaimer The performance characteristics of all immunohistochemical and indirect immunofluorescence stains (if any) cited in this report were determined by the Histopathology Laboratory of [facility]. Some of these tests were developed by [...] interpretation of this case is performed by [facility] Pathology at [facility], [address] [place] [address]. 03/25/2019 1:01 PM CDT [facility] PATHOLOGY LAB Embedded Images 03/25/2019 1:01 PM CDT [facility] PATHOLOGY LAB Pathology/Cytology SPECIMEN FROM BONE MARROW [...] City/State/[facility] Co de Phone Number [facility] PATHOLOGY LAB [address] [place] [id number] [place] [address] documented in this encounter Visit Diagnoses Not [...] COVID-19 Confirmed 03/06/2020 07/14/2020 0 4:33 AM BUSINESS ADMINISTRATION PROGRAM CHAIR COVID-19 Under Investigation 03/07/2020 03/07/2020 03/09/2020 8:54 AM CDT COVID-19 Under Investigation 03/29/2020 03/29/2020 03/30/2020 9:42 AM CDT COVID-19 Confirmed 08/31/2020 08/31/2020 4:34 AM BUSINESS ADMINISTRATION PROGRAM CHAIR COVID-19 Confirmed 09/28/2020 09/28/2020 4:33 AM BUSINESS ADMINISTRATION PROGRAM CHAIR COVID-19 Under Investigation 11/16/2020 11/16/2020 11/16/2020 6:52 PM CDT COVID-19 Confirmed 11/16/2020 11/16/2020 4:35 AM CDT COVID-19 Under Investigation 12/20/2020 12/20/2020 12/20/2020 6:23 PM CDT COVID-19 Under Investigation 04/21/2021 04/21/2021 2021 6:42 AM CDT documented as of this encounter Care Teams Logistics/Shipper Relationship Specialty Start Date End Date Ran Nuñez MD [address] [place] [address] PCP - General Family Medicine 03/22/19 12/22/20 Alida Marshall APRN-GLOBAL REGULATORY LEAD [address] [facility] OF HEMATOLOGY & [place] [address] PCP - General Family Medicine 12/23/20 08/29/21 Ran Nuñez MD [address] [place] [address] PCP - General Family Medicine 08/30/21 [place] [address] [address] [facility] [place] [address] PCP - Attributed-Stefany MANRIQUEZ 03/04/23 08/21/23 Hillary Apple MD [address] [place] [address] Hematology and Oncology 03/17/19 Bill Ferrera MD [address] [place] [address] Hematology and Oncology 03/17/19 08/27/21 Tony Dumont MD [address] [place] [address] Hematology and Oncology 03/17/19 Shalini Segal MD [address] [place] [address] Hematology and Oncology 03/17/19 09/29/19 Karie Jones, RN Registered Nurse 03/17/19 09/21/19 Maryjo Reinoso, BIOMEDICAL SCIENTIST Organisational Psychologist 03/17/19 Madyson Clay, PharmD 03/17/19 Dana Lala PRICING CLERK-INSTRUCTOR WATCH ASSEMBLY [address] [place] [address] [address] [address] Oncology 03/17/19 Mckinley Silver PA-C [address] [place] [address] [address] [place] [address] Physician Stave Jointer 03/17/19 09/08/19 Tiffanie Nguyen APRN-GLOBAL REGULATORY LEAD [address] [place] [address] [address] [place] [address] Family Medicine 03/17/19 Stephanie Mahoney, RN Registered Nurse 03/17/19 10/29/21 Alycia Galvan, ROSEMARY 03/17/19 10/29/21 Cesar Tavares MD [address] [place] [address] [place] [address] Referring Physician Medical Oncology 03/23/19 Karie Jones, RN Registered Nurse 06/08/19 10/29/21 Joy Bob 09/22/19 Addison Shea, PharmD Pharmacist 09/22/19 10/29/21 Tony Dumont MD [address] [place] [address] Hematology and Oncology 10/30/21 Shalini Segal MD [address] [facility] OF HEMATOLOGY [place] [address] Cylinder Grinder/Oncologis t Hematology and Oncology 10/30/21 Steafnie Burns, RN Registered Nurse 10/30/21 Fatemeh Bolaños RN Registered Nurse 10/30/21 Chandana Lu MD [address] [place] [address] Orthopedic Surgery 03/30/24 documented as of this encounter
--- OUTSIDE RECORDS SUMMARY | 2024-09-14 07:27 | XMS_ITS | Continuity of Care Document ---
Author Organization [facility] Address [address] [facility] [place] [address] Phone Care Team Providers Care Cushion Builder Name Role Phone Darcy Yao OD Unavailable [...] [facility] SV Plastic Sphcyl [place] +/-4d, .12-2d Oc Anti-reflective Coating Advance Directives Directive Yes / No Effective Date File Name No Information Encounters Encounter Description Practice Location Reason(s) For Visit Diagnoses Date Provider Providers Copied on Encounter Office/outpat ient Visit, [facility], [id number] [place] [address] [address], [place], [place], [id number], tel:[phone] SEC Andrea Patel VMWARE CONSULTANT 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 [address] [place] [address], [address], [place], [place], [address], . tel:[phone] Referring Provider: Darcy Levy, [address] [place] [address] [address], [place], [address] . tel:[phone] [facility], [address] [place], [place] [address], [place], [place], [id number], tel:[phone] SEC Andrea Patel No Information 2 [facility] . [address] [facility], [address], [place], [place], [address], . tel:[phone] Referring Provider: Darcy Levy, [address] [place] [address] [address], [place], [address] . tel:[phone] sulting Provider: Alan Mora, [address] [place], [address] . tel:[phone] Family History Family Member Type Diagnosis Age At Onset No Information Payers Payer name Insurance type Covered republican ID Radha laughlin(s) [employer]na [id number] Social History Type Description Quantity Date Captured Comments Alcohol Use Details Caffeine Use Details Tobacco Use Status Chews tobacco Smoking Status Unknown if ever smoked Non-Smoking Tobacco Use Details Chewing: No Details Available Chewing: No Details Available Sex Male Chief Complaint And Reason For Visit From encounter dated 05/31/2022 13:30'. VMWARE CONSULTANT complete exam (chief complaint). Description: The 52 [...] Date Complaint History Of Prese nt Illness VMWARE CONSULTANT complete exam The 52 year old patient presents for evaluation of VMWARE CONSULTANT complete exam in the right eye and [...]
--- OUTSIDE RECORDS SUMMARY | 2024-09-14 07:27 | XMS_ITS | Encounter Summary ---
Author Organization [facility] Address [address] [place] [address] Care Team Providers Care Digital Marketing Coordinator Name Role Phone Hillary Apple MD Unavailable [phone] Bill Ferrera MD Unavailable [phone] Tony Dumont MD Unavailable [phone] Shalini Segal MD Unavailable [phone] Karie Jones RN Unavailable Unavailable Maryjo Reinoso LCSW Unavailable Unavailable Madyson Clay PharmD Unavailable Unavaila Dana Galicia OCEAN FISHING GUIDE-KIER DRIER Unavailable + [phone] Mckinley Silver-C Unavailable Unavail able Patrick, Tiffanie Seymour OCEAN FISHING GUIDE-SKIDDER OPERATOR Unavailable [phone] Stephanie Mahoney RN Unavailable Unavailable Alycia Galvan RN Unavailable UnavailRan Mejaí MD Primary Care Provider Cesar Tavares MD Unavailable [phone] Karie Jones RN Unavailable Unavailable Joy Bob Unavailable Fanta Addison Weinstein PharmD Unavailable Unavailab Alida Chang OCEAN FISHING GUIDE-SKIDDER OPERATOR Primary Care Provider Rna Nuñez MD Primary Care Provider Tony Dumont MD Unavailable [phone] Shalini Segal MD Unavailable Stefanie Burns RN Unavailable Unavaila Fatemeh Kelly RN Unavailable Unavailable Glenn Hernandez MD Unavailable [phone] Chandana Lu MD Unavailable [phone] Encounter Details Date Type Department Care Team (Late st Contact Info) Description 03/23/2019 Lab Requisition [facility] Pathology Lab [address] [place] [address] Ulises Howell MD [address] [address] Non-Hodgkin lymphoma (HCC) Social History Tobacco Use [...] 10:40 AM CDT) Case Report Flow Cytometry Case: [id number] Authorizing Provider: Ulises Howell MD Collected: 03/23/2019 10:40 AM Ordering Location: [facility] Pathology Lab Received: 03/23/2019 01:04 PM Pathologist: Alecia Neri MD Specimen: Bone Marrow 03/24/2019 11:14 AM CDT [facility] PATHOLOGY LAB Final Diagnosis Bone marrow, flow cytometric immunophenotypic analysis: - 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 - See interpretation. 03/24/2019 11:14 AM CDT [facility] PATH[facility] LAB Flow Cytometry Interpretation The bone [...] flow cytometry specimen is reviewed for quality control specialist purposes. In summary, the bone marrow specimen shows evidence of involvement by a CD5-negative, KL06-xxcsplex mature B-cell lymphoma. Correlation with additional clinical information, the concurrent bone marrow biopsy specimen, and relevant cytogenetic/molecu lar testing is required for further classification. KR 03/24/2019 11:14 AM [facility] PATHOLOGY LAB Flow Cytometry Results Differential Result Comment Flow Cell Count /uL 30,000 Total Viability % 95.0 Lymphocytes % 11 Dim CD45 Region % 3 Monocytes % 3 Granulocytes % 80 03/24/2019 11:[facility] Reason for test Non-Hodgkin lymphoma 202.80 03/24/2019 11:14 AM [facility] PATH[facility] Client Specimen ID # [id number] 03/24/2019 11:14 AM [facility] PATHOLOG[facility] Number of markers 13 were performed. A-1 Flow CD3 A-3 Flow CD10 A-5 Flow CD20 A-6 Flow CD23 A-11 Flow CD25 A-12 Flow CD103 A-13 Flow CD11c A-2 Flow CD5 A-4 Flow CD19 A-7 Flow CD34 A-8 Flow CD45 A-9 [place]+CD19+ A-10 Lambda+CD19+ 03/24/2019 11:14 AM [facility] PATHOLOGY LAB Disclaimer Test performed at [facility], [address] [place] [address], [id number]. *The established laboratory minimum viability is 70%. [...] high complexity clinical testing. 03/24/2019 11:14 AM CDT U PATHOLOGY LAB Embedded Images 9 11:14 AM CDT [facility] PATHOLOGY LAB Pathology/Cytolo gy BONE MARROW SPECIMEN / Unknown 03/23/2019 10:40 AM CDT 03/23/2019 1:04 PM CDT Ulises Howell MD LAB - PATHOLOGY/CYTO LOGY ORDERABLES Performing Organization Address City/State/[facility] Co de Phone Number [facility] PATHOLOGY LAB [address] [place], [place] [address] [phone] documented in this encounter Visit Diagnoses Diagnosis [...] COVID-19 Confirmed 03/06/2020 07/14/2020 0 4:33 AM MECHANIC/WELDER COVID-19 Under Investigation 03/07/2020 03/07/2020 03/09/2020 8:54 AM CDT COVID-19 Under Investigation 03/29/2020 03/29/2020 03/30/2020 9:42 AM CDT COVID-19 Confirmed 08/31/2020 08/31/2020 1 4:34 AM MECHANIC/WELDER COVID-19 Confirmed 09/28/2020 09/28/2020 1 4:33 AM MECHANIC/WELDER COVID-19 Under Investigation 11/16/2020 11/16/2020 11/16/2020 6:52 PM CDT COVID-19 Confirmed 11/16/2020 11/16/2020 1 4:35 AM CDT COVID-19 Under Investigation 12/20/2020 12/20/2020 12/20/2020 6:23 PM CDT COVID-19 Under Investigation 04/21/2021 04/21/2021 2021 6:42 AM CDT documented as of this encounter Care Teams Digital Marketing Coordinator Relationship Specialty Start Date End Date Ran Nuñez MD [address] [place] [address] PCP - General Family Medicine 03/22/19 12/22/20 Alida Marshall APRN-SKIDDER OPERATOR [address] [facility] OF HEMATOLOGY [place] [address] PCP - General Family Medicine 12/23/20 08/29/21 Ran Nuñez MD [address] [place] [address] PCP - General Family Medicine 08/30/21 [place] [address] [place] [address] PCP - [facility] 03/04/23 08/21/23 Hillary Apple MD [address] [place] [address] Hematology and Oncology 03/17/19 Bill Ferrera MD [address] [place] [address] Hematology and Oncology 03/17/19 08/27/21 Tony Dumont MD [address] [place] [address] Hematology and Oncology 03/17/19 Shalini Segal MD [address] [place] [address] Hematology and Oncology 03/17/19 09/29/19 Karie Jones, RN Registered Nurse 03/17/19 09/21/19 Maryjo Reinoso, FENCE INSTALLER HELPER Trencher Driver 03/17/19 Madyson Clay, PharmD 03/17/19 Dana Lala, OCEAN FISHING GUIDE-KIER DRIER [address] [facility] [place] [address] Oncology 03/17/19 Mckinley Silver PA-C [facility] [place] [address] Physician Grey Roll Worker 03/17/19 09/08/19 Tiffanie Nguyen, OCEAN FISHING GUIDE-SKIDDER OPERATOR [facility] [place] [address] Family Medicine 03/17/19 Stephanie Mahoney, RN Registered Nurse 03/17/19 10/29/21 Alycia Galvan, RN 03/17/19 10/29/21 Cesar Tavares MD [address] [place] [address] Referring Physician Medical Oncology 03/23/19 Karie Jones, RN Registered Nurse 06/08/19 10/29/21 Joy Bob 09/22/19 Addison Shea, PharmD Pharmacist 09/22/19 10/29/21 Tony Dumont MD [address] [place] [address] Hematology and Oncology 10/30/21 Shalini Segal MD [address] OF HEMATOLOGY & [place] [address] Locator/Oncologis t Hematology and Oncology 10/30/21 Stefanie Burns, RN Registered Nurse 10/30/21 Fatemeh Bolaños RN Registered Nurse 10/30/21 Chandana Lu MD [address] [place] [address] Orthopedic Surgery 03/30/24 documented as of this encounter
--- OUTSIDE RECORDS SUMMARY | 2024-09-14 07:27 | XMS_ITS | Encounter Summary ---
Author Organization [facility] Address [address] [facility] [place] [address] Care Team Providers Care Missile Pad Mechanic Name Role Phone Hillary Apple MD Unavailable [phone] Tony Dumont MD Unavailable [phone] Maryoj ReinosoW Unavailable Unavailable Madyson Clay PharmD Unavailable Unavaila Dana Galicia HOME HEALTH SCHEDULER-LUMBER PILER Unavailable + [phone] Tiffanie Nguyen HOME HEALTH SCHEDULER-OIL WELL SERVICES DISPATCHER Unavailable [phone] Cesar Tavares MD Unavailable [phone] Joy Bob Unavailable Fanta Ran Augustine MD Primary Care Provider Tony Dumont MD Unavailable [phone] Shalini Segal MD Unavailable [phone] Stefanie Burns RN Unavailable Unavaila Fatemeh Kelly RN Unavailable Unavailable Glenn Hernandez MD Unavailable [phone] Chandana Lu MD Unavailable [phone] Reason for Visit * Reason Onset Date Comments MEDICATION REFILL 08/13/2023 Encounter Details Date Type Department Care Team (Late st Contact Info) Description 08/13/2023 Refill [facility]IC [address] [place] [address] Tiffanie Nguyen APRN-OIL WELL SERVICES DISPATCHER [address] [place] [address] MEDICATION REFILL Social History Tobacco Use Types [...] transplant documented in this encounter Care Teams Missile Pad Mechanic Relationship Specialty Start Date End Date Ran Nuñez MD [address] [place] [address] PCP - General Family Medicine 08/30/21 [place] [address] [place] [address] PCP - Attributed-Stefany MANRIQUEZ 03/04/23 08/21/23 Hillary Apple MD [address] [place] [address] Hematology and Oncology 03/17/19 Tony Dumont MD [address] [place] [address] Hematology and Oncology 03/17/19 Maryjo Reinoso, SAMPLE PREP TECHNICIAN Senior Sales Compensation Analyst 03/17/19 Madyson Clay, PharmD 03/17/19 Dana Lala, HOME HEALTH SCHEDULER-LUMBER PILER [address] [facility] 2nd [place] [address] Oncology 03/17/19 Tiffanie Nguyen, HOME HEALTH SCHEDULER-OIL WELL SERVICES DISPATCHER [address] [facility] [address] [place] [address] Family Medicine 03/17/19 Cesar Tavares MD [address] [place] [address] [address]nd [place] [address] Referring Physician Medical Oncology 03/23/19 Joy Bob 09/22/19 Tony Dumont MD [address] [place] [address] Hematology and Oncology 10/30/21 Shalini Segal MD [facility] OF HEMATOLOGY [place] [address] Systems Eng/Oncologist Hematology and Oncology 10/30/21 Stefanie Burns, RN Registered Nurse 10/30/21 Fatemeh Bolaños, RN Registered Nurse 10/30/21 Chandana Lu MD [address] [place] [address] Orthopedic Surgery 03/30/24 documented as of this encounter
--- OUTSIDE RECORDS SUMMARY | 2024-09-14 07:27 | XMS_ITS | Encounter Summary ---
Author Organization [facility] Address [address] [facility] [place] [address] Care Team Providers Care Scanning Supervisor Name Role Phone Hillary Apple MD Unavailable [phone] Tony Dumont MD Unavailable [phone] Maryjo ReinosoW Unavailable Unavailable Madyson Clay PharmD Unavailable Unavaila Dana Galicia [place] APPRENTICE-BILL DISTRIBUTOR Unavailable + [phone] Tiffanie Nguyen [place] APPRENTICE-CORPORATE COMMUNICATIONS ASSOCIATE Unavailable [phone] Cesar Tavares MD Unavailable [phone] Joy Bob Unavailable Fanta Ran Augustine MD Primary Care Provider Tony Dumont MD Unavailable [phone] Shalini Segal MD Unavailable [phone] Stefanie Burns RN Unavailable Unavaila Fatemeh Kelly RN Unavailable Unavailable Glenn Hernandez MD Unavailable [phone] Chandana Lu MD Unavailable [phone] Reason for Visit * Reason Onset Date Comments MEDICATION REFILL 08/13/2023 Encounter Details Date Type Department Care Team (Late st Contact Info) Description 08/13/2023 Refill [facility] BMT CLINIC [address] [place] [address] Hillary Apple MD [address] [facility] OF HEMATOLOGY [place] [address] MEDICATION REFILL Social History Tobacco Use Types [...] on filedocumented in this encounter Care Teams Scanning Supervisor Relationship Specialty Start Date End Date Ran Nuñez MD [address] [place] [address] PCP - General Family Medicine 08/30/21 [place] [address] [place] [address] PCP - Attributed-Stefany MANRIQUEZ 03/04/23 08/21/23 Hillary Apple MD [address] [place] [address] Hematology and Oncology 03/17/19 Tony Dumont MD [facility] [place] [address] Hematology and Oncology 03/17/19 Maryjo Reinoso, SOIL TECHNOLOGIST Supervisor Final 03/17/19 Madyson Clay, PharmD 03/17/19 Dana Lala, [place] APPRENTICE-BILL DISTRIBUTOR [address] [facility] [address] [place] [address] Oncology 03/17/19 Tiffanie Nguyen, [place] APPRENTICE-CORPORATE COMMUNICATIONS ASSOCIATE [address] [facility] [address] [place] [address] Family Medicine 03/17/19 Cesar Tavares MD [facility] 2nd [place] [address] Referring Physician Medical Oncology 03/23/19 Joy Bob 09/22/19 Tony Dumont MD [address] [place] [address] Hematology and Oncology 10/30/21 Shalini Segal MD [address] [place] [address] OF HEMATOLOGY & [place] [address] Ranch Manager/Oncologist Hematology and Oncology 10/30/21 Stefanie Burns, ROSEMARY Registered Nurse 10/30/21 Fatemeh Bolaños, RN Registered Nurse 10/30/21 Chandana Lu MD [address] [place] [address] Orthopedic Surgery 03/30/24 documented as of this encounter
--- OUTSIDE RECORDS SUMMARY | 2024-09-14 07:27 | XMS_ITS | Clinical Summary ---
Author Organization [facility] Address [address] [place] [address] Care Team Providers Care Arboriculture Teacher Name Role Phone Ran Nuñez MD Primary Care Provider Allergies Active Allergy Reactions Criticality Noted Date Comments Adhesive Tape-Silicones Other (See Comments),Rash Medium 08/17/2019 Electrodes -- welps where stickers are Also, use paper tape Medications acetaminophen (TYLENOL) 325 mg tablet Take 650 mg by mouth every 6 hours as needed. 0 Active rOPINIRole (REQUIP) 0.25 mg tablet Take 0.25 mg by mouth. 0 Active albuterol sulfate 90 mcg/Actuation inhaler Take 2 Puffs by inhalation every 6 hours as needed. 0 Active budesonide-formot Miguelina (SYMBICORT) 160-4.5 mcg/actuation HFA Aerosol Inhaler Take 2 Puffs by inhalation 2 times daily. 1 Active cholecalciferol, vitamin D3, 1,000 unit Take 2,000 Units by mouth daily. 1 Active clonazePAM (KlonoPIN) 1 mg tablet Take 1 mg by mouth. 2 Active fluticasone propionate (FLONASE) 50 mcg/spray [place], Suspension nasal inhaler 2 SPRAYS IN EACH NOSTRIL Q DAY 0 Active escitalopram oxalate (LEXAPRO) 20 mg tablet Take 1 Tablet by mouth daily. 2 Active cyanocobalamin (VITAMIN B-12) 100 mcg tablet Take 100 mcg by mouth daily. Active ondansetron (Zofran) 8 mg Tablet Take 1 Tablet (8 mg) by mouth every 8 hours as needed for Nausea/Emesis. 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 60 Tablet 3 4 Active HYDROcodone-aceta minophen (NORCO) 5-325 mg tabletIndications :Non-Hodgkin's lymphoma, unspecified body region, unspecified non-Hodgkin lymphoma type (CMS/HCC) Take 1 Tablet by mouth every 6 hours as needed for Pain, Moderate. Max Daily Amount: 4 Tablets 30 Tablet 4 Active naloxone (NARCAN) 4 mg/spray [place], Non-Aerosol EMERGENCY USE ONLY: Administer 1 spray (4 mg) in one nostril one time. May repeat in alternating nostrils every 2-3 min until responsive or EMS arrives. 2 Each 3 4 Active acyclovir (ZOVIRAX) 200 mg capsule TAKE 1 CAPSULE TWICE DAILY 180 Capsule 3 5 Active Active Problems Problem Noted Date Diagnosed Date B-cell lymphoma 04/18/2017 Resolved Problems Problem Noted Date Diagnosed Date Resolved Date Lymphadenopathy 04/11/2017 06/16/2019 Encounters Date Type Department Care Team Description 09/09/2024 Abstract [facility] Oncology and Hematology [facility] [address] [place] [address] Cesar Tavares MD 09/09/2024 Telephone [facility] Oncology and Hematology Mina [address] [place] [address] Cesar Tavares MD Disability Paperwork 09/07/2024 External Device Data [facility] ABSTRACTION Provider, Abstract 09/01/2024 External Device Data [facility] ABSTRACTION Provider, Abstract 08/26/2024 External Device Data [facility] ABSTRACTION Provider, Abstract 08/08/2024 Refill [facility] Oncology and Hematology [facility] [address] [place] [address] Cesar Tavares MD 07/06/2024 External Device Data [facility] ABSTRACTION Provider, Abstract from Last 3 Months Family History Medical History Relation Name Comments Diabetes Mother Diabetes Sister 1 Relation Name Status Comments Father Mother Sister 1 Alive Sister 2 Alive Social History Tobacco Use Types Packs/Day Years Used Date Smoking Tobacco: Former Cigarettes 2 10 1 997 - 2007 Smokeless Tobacco: Current Snuff Tobacco Cessation:Ready to Q uit: Not Asked; Counseling Given: Not Answered Alcohol Use Standard Drinks/Week Comments Yes 0 (1 standard drink = 0.6 oz pur e alcohol) ocass Sex and Gender Information Value Date Recorded Sex Assigned at Not on file Legal Sex Male 8:39 AM CDT Gender Identity Not on file Sexual Orientation Not on file Last Filed Vital Signs Vital Sign Reading Time Taken Comments Blood Pressure 124/81 05/28/2024 11:46 AM CDT Pulse 73 05/28/2024 11:46 AM CDT Temperature 36.7 C (98 F) 05/28/2024 11:46 AM CDT Respiratory Rate 20 05/28/2024 11:46 AM CDT Oxygen Saturation 94% 05/28/2024 11:46 AM CDT Inhaled Oxygen Concentration - - Weight 112 kg (247 lb) 05/28/2024 11:46 AM CDT Height 171.5 cm (5' 7.5 ) 02/12/2022 1:19 PM CDT Body Mass Index 38.11 02/12/2022 1:19 PM CDT Plan of Treatment Upcoming Encounters Date Type Department Care Team (Late st Contact Info) Description 10/18/2024 3:45 PM CDT Office Visit [facility] Oncology and Hematology - [place] [address] [facility] [address] [place] [address] Cesar Tavares MD [address] [facility] [address] [place] [address] Health Maintenance Due Date Last Done Comments Pre-Diabetes and Diabetes Screening 1970 COLORECTAL SCREENING 2015 Colorectal Cancer Screening 2015 FIT-DNA Q 3 years 2015 FIT/FOBT Q 1 year 2015 Flex Sig/CT Colonography Q 5 years 2015 INFLUENZA VACCINE (#1) 2024 05/22/2022, 2018 COVID-19 Vaccine (2023-2 5 season) 2024 05/22/2022, 12/20/2021, 08/30/2021, Additional history exists DTAP/TDAP/TD VACCINES (4 - Tdap) 02/15/2031 02/15/2021, 09/28/2020, 07/14/2020 Abdominal Aortic Aneurysm (A AA) Screening Completed 07/26/2019 ZOSTER VACCINE Completed 09/28/2020, 07/14/2020 HEPATITIS B VACCINES Completed 08/30/2021, 09/28/2020, 07/14/2020 Insurance [employer] CHOICE PPO MCR Care Teams Arboriculture Teacher Relationship Specialty Start Date End Date Ran Nuñez MD [address] [place] [address] PCP - General Family Practice 08/15/17
--- OUTSIDE RECORDS SUMMARY | 2024-09-14 07:28 | XMS_ITS | Encounter Summary ---
Author Organization [facility] Address [address] [place] [address] Care Team Providers Care Elderly Caregiver Name Role Phone Hillary Apple MD Unavailable [phone] Bill Ferrera MD Unavailable [phone] Tony Dumont MD Unavailable [phone] Maryjo Reinoso [facility] Unavailable Unavailable Madyson Clay PharmD Unavailable Unavaila Dana Galicia SHAPER HAND-ENGINE LATHE SET UP OPERATOR TOOL Unavailable [phone] Tiffanie Nguyen SHAPER HAND-HEALTH INSURANCE SPECIALIST Unavailable [phone] Stephanie Mahoney RN Unavailable Unavailable Alycia Galvan RN Unavailable UnavailRan Mejía MD Primary Care Provider Cesar Tavares MD Unavailable [phone] Karie Jones RN Unavailable Unavailable Joy Bob Unavailable Fanta Addison Weinstein PharmD Unavailable Unavailab Alida Chang SHAPER HAND-HEALTH INSURANCE SPECIALIST Primary Care Provider Ran Nuñez MD Primary Care Provider Tony Dumont MD Unavailable [phone] Shalini Segal MD Unavailable [phone] Stefanie Burns RN Unavailable Unavaila Fatemeh Kelly RN Unavailable Unavailable Glenn Hernandez MD Unavailable Chandana Lu MD Unavailable Reason for Visit * Reason Onset Date Comments MEDICATION REFILL 10/02/2020 Encounter Details Date Type Department Care Team (Late st Contact Info) Description 10/02/[address] [facility] [address] [place] [address] Hillary Apple MD [address] [facility] [place] [address] MEDICATION REFILL Social History Tobacco Use Types [...] COVID-19? No / Unsure 09/28/2020 1:10 PM AIR FILLER documented as of this encounter Functional Status [...] Time COVID-19 Confirmed 09/28/2020 09/28/2020 4:33 AM AIR FILLER COVID-19 Under Investigation 11/16/2020 11/16/2020 11/16/2020 6:52 PM CDT COVID-19 Confirmed 11/16/2020 11/16/2020 4:35 AM CDT COVID-19 Under Investigation 12/20/2020 12/20/2020 12/20/2020 6:23 PM CDT COVID-19 Under Investigation 04/21/2021 04/21/2021 2021 6:42 AM CDT documented as of this encounter Care Teams Elderly Caregiver Relationship Specialty Start Date End Date Ran Nuñez MD [address] [place] [address] PCP - General Family Medicine 03/22/19 12/22/20 Alida Marshall APRN-HEALTH INSURANCE SPECIALIST [address] [facility] [place] [address] PCP - General Family Medicine 12/23/20 08/29/21 Ran Nuñez MD [address] [place] [address] PCP - General Family Medicine 08/30/21 [place] [address] [place] [address] PCP - Attributed-[place] 03/04/23 08/21/23 Hillary Apple MD [address] [place] [address] Hematology and Oncology 03/17/19 Bill Ferrera MD [address] [place] [address] Hematology and Oncology 03/17/19 08/27/21 Tony Dumont MD [address] [place] [address] Hematology and Oncology 03/17/19 Maryjo Reinoso, DIRECTOR OF IN SERVICE EDUCATION Computer Game Programmer 03/17/19 Madyson Clay, PharmD 03/17/19 Dana Lala, SHAPER HAND-ENGINE LATHE SET UP OPERATOR TOOL [address] [facility] [address] [address] Oncology 03/17/19 Tiffanie Nguyen, SHAPER HAND-HEALTH INSURANCE SPECIALIST [address] [facility] [address] [place] [address] Family Medicine 03/17/19 Stephanie Mahoney, RN Registered Nurse 03/17/19 10/29/21 Alycia Galvan, ROSEMARY 03/17/19 10/29/21 Cesar Tavares MD [address] [place] [address] [place] [address] Referring Physician Medical Oncology 03/23/19 Karie Jones, RN Registered Nurse 06/08/19 10/29/21 Joy Bob 09/22/19 Addison Shea, PharmD Pharmacist 09/22/19 10/29/21 Tony Dumont MD [address] [place] [address] Hematology and Oncology 10/30/21 Shalini Segal MD [address] [place] [address] OF HEMATOLOGY [place] [address] Miner Assistant/Oncologis t Hematology and Oncology 10/30/21 Stefanie Burns, RN Registered Nurse 10/30/21 Fatemeh Bolaños RN Registered Nurse 10/30/21 Chandana Lu MD [address] [place] [address] Orthopedic Surgery 03/30/24 documented as of this encounter
--- OUTSIDE RECORDS SUMMARY | 2024-09-14 07:28 | XMS_ITS | Encounter Summary ---
Author Organization [facility] [employer] Address [address] [place] [address] Care Team Providers Care Endbander Name Role Phone Ran Nuñez MD Primary Care Provider Reason for Visit * Reason Comments Medication Refill Encounter Details Date Type Department Care Team (Late Contact Info) Description 07/17/2019 Refill [facility] Oncology and Hematology [address] [place] [address] Cesar Tavares MD [address] [place] [address] Social History Tobacco Use Types Packs/Day Years Used Date Smoking Tobacco: Former Cigarettes Q uit: 2007 Smokeless Tobacco: Current Snuff Alcohol Use Standard Drinks/Week Comments Yes 0 (1 standard drink = 0.6 oz pur e alcohol) ocass Sex and Gender Information Value Date Recorded Sex Assigned at Not on file Legal Sex Male 8:39 AM CDT Gender Identity Not on file Sexual Orientation Not on file documented as of this encounter Plan of Treatment Upcoming Encounters Date Type Department Care Team (Late Contact Info) Description 10/18/2024 3:45 PM CDT Office Visit [facility] Oncology and Hematology [address] [place] [address] Cesar Tavares MD [address] [place] [address] documented as of this encounter Visit Diagnoses Not on filedocumented in this encounter Care Teams Endbander Relationship Specialty Start Date End Date Ran Nuñez MD [address] [place] [address] PCP - General Family Practice 08/15/17 documented as of this encounter
--- OUTSIDE RECORDS SUMMARY | 2024-09-14 07:28 | XMS_ITS | Encounter Summary ---
Author Organization [facility] [employer] [facility] Address [address] [place] [address] Care Team Providers Care Market Research Worker Name Role Phone Ran Nuñez MD Primary Care Provider Reason for Visit * Reason Onset Date Comments Med Change Request 12/13/2022 Encounter Details Date Type Department Care Team (Late st Contact Info) Description 12/13/2022 Telephone [facility] Oncology and Hematology - [place] [address] [facility] [address] [place] [address] Cesar Tavares MD [address] [facility] [address] [place] [address] Med Change Request Social History Tobacco Use Types Packs/Day Years Used Date Smoking Tobacco: Former Cigarettes Q uit: 2006 Smokeless Tobacco: Current Snuff Alcohol Use Standard Drinks/Week Comments Yes 0 (1 standard drink = 0.6 oz pur e alcohol) ocass Sex and Gender Information Value Date Recorded Sex Assigned at Not on file Legal Sex Male 8:39 AM CDT Gender Identity Not on file Sexual Orientation Not on file documented as of this encounter Miscellaneous Notes * Telephone Encounter - Chuck Aguilera RN - 12/13/2022 2:28 PM CDT Pt's insurance won't cover Hydrocodone/acetaminophen 5-325 mg documented in this encounter Plan of Treatment Upcoming Encounters Date Type Department Care Team (Late st Contact Info) Description 10/18/2024 3:45 PM CDT Office Visit [facility] Oncology and Hematology - [place] [address] [facility] [address] [place] [address] Cesar Tavares MD [address] [facility] [address] [place] [address] documented as of this encounter Visit Diagnoses Diagnosis 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
--- OUTSIDE RECORDS SUMMARY | 2024-09-14 07:28 | XMS_ITS | Encounter Summary ---
Author Organization [facility] Address [address] [facility] [place] [address] Care Team Providers Care Used Car Salesperson Name Role Phone Hillary Apple MD Unavailable [phone] Bill Ferrera MD Unavailable [phone] Tony Dumont MD Unavailable [phone] Maryjo Reinoso [facility] Unavailable Unavailable Madyson Clay PharmD Unavailable Unavaila Dana Galicia VICE PRINCIPAL-COOKER CHIP Unavailable [phone] Tiffanie Nguyen VICE PRINCIPAL-BASE REMOVER Unavailable [phone] Stephanie Mahoney RN Unavailable Unavailable Alycia Galvan RN Unavailable UnavailRan Mejía MD Primary Care Provider Cesar Tavares MD Unavailable [phone] Karie Jones RN Unavailable Unavailable Joy Bob Unavailable Fanta Addison Weinstein PharmD Unavailable Unavailab Alida Chang VICE PRINCIPAL-BASE REMOVER Primary Care Provider Ran Nuñez MD Primary Care Provider Tony Dumont MD Unavailable [phone] Shalini Segal MD Unavailable [phone] Stefanie Burns RN Unavailable Unavaila Fatemeh Kelly RN Unavailable Unavailable Glenn Hernandez MD Unavailable Chandana Lu MD Unavailable Reason for Visit * Reason Onset Date Comments MEDICATION REFILL 10/01/2020 Encounter Details Date Type Department Care Team (Late st Contact Info) Description 10/01/2020 Refill [facility] [address] [place] [address] Hillary Apple MD [address] [facility] [place] [address] MEDICATION REFILL Social History Tobacco Use Types [...] COVID-19? No / Unsure 09/28/2020 1:10 PM EDUCATION REP documented as of this encounter Functional Status [...] Time COVID-19 Confirmed 09/28/2020 09/28/2020 4:33 AM EDUCATION REP COVID-19 Under Investigation 11/16/2020 11/16/2020 11/16/2020 6:52 PM CDT COVID-19 Confirmed 11/16/2020 11/16/2020 4:35 AM CDT COVID-19 Under Investigation 12/20/2020 12/20/2020 12/20/2020 6:23 PM CDT COVID-19 Under Investigation 04/21/2021 04/21/2021 2021 6:42 AM CDT documented as of this encounter Care Teams Used Car Salesperson Relationship Specialty Start Date End Date Ran Nuñez MD [address] [place] [address] PCP - General Family Medicine 03/22/19 12/22/20 Alida Marshall APRN-BASE REMOVER [address] [facility] [place] [address] PCP - General Family Medicine 12/23/20 08/29/21 Ran Nuñez MD [address] [place] [address] PCP - General Family Medicine 08/30/21 [place] [address] [place] [address] PCP - Attributed-[place] 03/04/23 08/21/23 Hillary Apple MD [address] [place] [address] Hematology and Oncology 03/17/19 Bill Ferrera MD [address] [place] [address] Hematology and Oncology 03/17/19 08/27/21 Tony Dumont MD [address] [place] [address] Hematology and Oncology 03/17/19 Maryjo Reinoso, INSURANCE JOB TITLES Skating Carhop 03/17/19 Madyson Clay, PharmD 03/17/19 Dana Lala, VICE PRINCIPAL-COOKER CHIP [address] [facility] [address] [place] [address] Oncology 03/17/19 Tiffanie Nguyen, VICE PRINCIPAL-BASE REMOVER [address] [facility] [address] [place] [address] Family Medicine 03/17/19 Stephanie Mahoney, RN Registered Nurse 03/17/19 10/29/21 Alycia Galvan, ROSEMARY 03/17/19 10/29/21 Cesar Tavares MD [address] [place] [address] [place] [address] Referring Physician Medical Oncology 03/23/19 Karie Jones, RN Registered Nurse 06/08/19 10/29/21 Joy Bob 09/22/19 Addison Shea, PharmD Pharmacist 09/22/19 10/29/21 Tony Dumont MD [address] [place] [address] Hematology and Oncology 10/30/21 Shalini Segal MD [address] [place] [address] OF HEMATOLOGY [place] [address] Filteration Operator/Oncologis t Hematology and Oncology 10/30/21 Stefanie Burns, RN Registered Nurse 10/30/21 Fatemeh Bolaños RN Registered Nurse 10/30/21 Chandana Lu MD [address] [place] [address] Orthopedic Surgery 03/30/24 documented as of this encounter
--- OUTSIDE RECORDS SUMMARY | 2024-09-14 07:28 | XMS_ITS | Encounter Summary ---
Author Organization [facility] [employer] Address [address] [place] [address] Care Team Providers Care Professor Of Law Name Role Phone Ran Nuñez MD Primary Care Provider Encounter Details Date Type Department Care Team (Late Contact Info) Description 12/19/2022 Abstract [facility] Oncology and Hematology [facility] [address] [place] [address] Chuck Aguilera, ROSEMARY Social History Tobacco Use Types Packs/Day [...] on file Sexual Orientation Not on file COVID-19 Exposure Response Date Recorded In the last 10 days, have yo u been in contact with someone who was confirmed or suspected to have Coronavirus/COVID-19? Yes 12/17/2022 10:50 AM CDT documented as of this encounter Plan of Treatment Upcoming Encounters Date Type Department Care Team ([facility] Contact Info) Description 10/18/2024 3:45 PM CDT Office Visit [facility] Oncology and Hematology [place] [address] [place] [address] Cesar Tavares MD [address] [facility] [address] [place] [address] documented as of this encounter Visit Diagnoses Not on filedocumented in this encounter Care Teams Professor Of Law Relationship Specialty Start Date End Date Ran Nuñez MD [address] [place] [address] PCP - General Family Practice 08/15/17 documented as of this encounter
--- OUTSIDE RECORDS SUMMARY | 2024-09-14 07:29 | XMS_ITS | Clinical Summary ---
Author Organization [facility] Address [address] [place] [address] Care Team Providers Care Worm Sorter Name Role Phone Hillary Apple MD Unavailable [phone] Tony Dumont MD Unavailable [phone] Maryjo ReinosoW Unavailable Unavailable Madyson Clay PharmD Unavailable Unavaila Dana Galicia PUNCH PRESS OPERATOR-FITTING ROOM OPERATOR Unavailable [phone] Tiffanie Nguyen PUNCH PRESS OPERATOR-BOND ANALYST Unavailable [phone] Cesar Tavares MD Unavailable [phone] Joy Bob Unavailable Fanta Ran Augustine MD Primary Care Provider Tony Dumont MD Unavailable [phone] Shalini Segal MD Unavailable [phone] Stefanie Burns RN Unavailable Unavaila Fatemeh Kelly RN Unavailable Unavailable Chandana Lu MD Unavailable [phone] Source Comments [facility],non-owned Affiliates and Associated Physician Practices is amultiple site organization consisting of ambulatory clinics and hospital sitesin [place], [place] and [place]. This disclosure is being madepursuant to the Care Everywhere program and may not contain all information available regarding this patient. Last updated 18.[facility] Allergies Active Allergy Reactions Criticality Noted Date [...] Telephone [facility] - Centralized Scheduling [address] [place] [phone] Andrew Francis MD Reschedule Appointment 07/12/2024 Travel [...] 69 02/26/2024 8:05 AM CDT Temperature 37.2 C (99 F) 06/30/2022 6:32 PM GRADE FOREMAN Respiratory Rate 17 02/26/2024 8:05 AM CDT Oxygen Saturation 95% 02/26/2024 8:05 AM CDT Inhaled Oxygen Concentration 50% 09/2019 12:16 AM CDT Weight 114.4 kg (252 lb 3.2 oz) 02/26/2024 8:05 AM CDT Height 172.7 cm (5' 8 ) 02/26/2024 8:05 AM CDT Body Mass Index 38.35 02/26/2024 8:05 AM CDT Plan of Treatment Health Maintenance Due Date Last Done Comments [...] 2018 DEPRESSION SCREENING 08/04/2024 06/30/2022 MEDICARE AWV CALENDAR YEAR 2024 SCREENING FOR DIABETES 08/30/2024 [...] this topic Medical Devices Implanted Type Area Fine Grader Device Identifier Shelf Expiration Date Model / Serial / Lot Tray Cath 12fr 23cm Hkmn Trifusion 3 Lum Implanted:Qty: 1 on 09/17/2019 at [facility] [employer] 05/03/2021 [id number] / / [id number] Procedures Procedure Name Priority Date/Time Associated Diagnosis Comments COMPREHENSIVE METABOLIC PANEL STAT 08/30/2021 11:36 AM GRADE FOREM[employer] Diffuse large B-cell lymphoma, unspecified body region (HCC) LIPID PROFILE Routine 08/30/2021 11:36 AM GRADE FOREMAN Diffuse large B-cell lymphoma, unspecified body region (HCC) S/P autologous bone marrow transplantation (HCC) HEPATITIS C ANTIBODY Routine 09/09/2019 12:42 PM GRADE FOREMAN Pre-transplant evaluation for stem cell transplant HIV-1 HIV-2 ANTIGEN/ANTIBODY Routine 03/22/2019 3:00 PM CDT Diffuse large B-cell lymphoma, unspecified body region (HCC) from Last 3 Months or Most Recently Relevant to Health Maintenance Results * (ABNORMAL) COMPREHENSIVE METABOLIC PANEL (08/30/2021 11:36 AM GRADE FOREMAN) BUN 12 7 - 26 mg/dL 08/30/2021 12:10 PM [facility] Creatinine 1.02 0.71 - 1.16 mg/dL 08/30/2021 12:10 PM [facility] Sodium 140 136 - 145 mmol/L 08/30/2021 12:10 PM [facility] Potassium 4.8(H) 3.5 - 4.5 mmol/L 08/30/2021 12:10 PM [facility] Chloride 107 98 - 107 mmol/L 08/30/2021 12:10 PM [facility] CO2 23 22 - 29 mmol/L 08/30/2021 12:10 PM [facility] Glucose 99 70 - 115 mg/dL 08/30/2021 12:10 PM [facility] Calcium 9.4 8.4 - 10.2 mg/dL 08/30/2021 12:10 PM [facility] Protein Total 6.6 6.0 - 8.3 g/dL 08/30/2021 12:10 PM [facility] Albumin 3.9 3.4 - 5.0 g/dL 08/30/2021 12:10 PM [facility] Bilirubin Total 0.4 0.2 - 1.2 mg/dL 08/30/2021 12:10 PM [facility] Alkaline Phosphatase 113 40 - 150 U/L 08/30/2021 12:10 PM [facility] ALT 38 5 - 55 U/L 08/30/2021 12:10 PM [facility] AST 26 5 - 34 U/L 08/30/2021 12:10 PM [facility] Anion Gap 15 8 - 18 08/30/2021 12:10 PM [facility] BUN/Creatinine Ratio 12 7 - 23 08/30/2021 12:10 PM [facility] Osmolality Calculated 290 270 - 300 mOsm/kg 08/30/2021 12:10 PM [facility] Albumin/Globulin Ratio 1.4 1.1 - 2.3 08/30/2021 12:10 PM [facility] eGFR by CKD-EPI 85(L) >=90 mL/min/1.7 3 m2 08/30/2021 12:10 PM [facility] Blood BLOOD SPECIMEN / Unknown Venipuncture / Unknown 08/30/2021 11:36 AM GRADE FOREMAN 08/30/2021 11:46 AM [facility] Lara Patrick PUNCH PRESS OPERATOR-BOND ANALYST LAB - CHEMISTRY ORDERABLES [facility] [address] [place] [address], [facility] [place] [phone] * (ABNORMAL) LIPID PROFILE (08/30/2021 11:36 AM GRADE FOREMAN) Cholesterol Total 207(H) <200 mg/dL 08/30/2021 12:10 PM [facility] HDL 38(L) >40 mg/dL 08/30/2021 12:10 PM [facility] Comment: ATP III Classification of HDL Cholesterol: <40 mg/dL: Considered a major risk factor. >60 mg/dL: Considered a negative risk factor. LDL Calculated 152(H) <100 mg/dL 08/30/2021 12:10 PM [facility] Comment: ATP III Classification of LDL Cholesterol: <100 mg/dL: Optimal 100 - 129 mg/dL: Near Optimal/Above Optimal 130 - 159 mg/dL: Borderline High 160 - 189 mg/dL: High >190 mg/dL: Very High Triglycerides 87 <150 mg/dL 08/30/2021 12:10 PM GRADE FOREMAN [facility] Comment: ATP III Classification of Triglycerides: <150 mg/dL: Normal 150 - 199 mg/dL: Borderline High 200 - 400 mg/dL: High >500 mg/dL: Very High Blood BLOOD SPECIMEN / Unknown Venipuncture / Unknown 08/30/2021 11:36 AM GRADE FOREMAN 08/30/2021 11:46 AM [employer]ADE [employer] Tiffanie Alvess [facility] - CHEMISTRY ORDERABLES [facility] [address] [place] [address], [facility] [place] [phone] * HEPATITIS C ANTIBODY (09/09/2019 12:42 PM GRADE FOREMAN) Hepatitis C Antibody Non-react robyn Non-reac tive 09/09/2019 1:46 PM GRADE FOREMAN [facility] Comment: Hepatitis C [...] Unknown Venipuncture / Unknown 09/09/2019 12:42 PM GRADE [employer]EMAN 09/09/2019 12:51 PM [employer] Tiffanie Alvess [facility] LAB - CHEMISTRY ORDERABLES [facility] [address] [place], [place] [address] [[email or web address]] [phone] * HIV-1 HIV-2 ANTIGEN/ANTIBODY (03/22/2019 3:00 PM CDT) HIV Antigen/Antibod y 1 & 2 Non-reacti ve Non-react robyn 03/22/2019 3:59 PM CDT [facility] Comment: Neither HIV-1 p24 Antigen nor HIV-1/HIV-2 Antibodies are detected. Blood BLOOD SPECIMEN / Unknown Venipuncture / Unknown 03/22/2019 3:00 PM CDT 03/22/2019 3:11 PM CDT Tiffanie Nguyen PUNCH PRESS OPERATOR-BOND ANALYST LAB - HEMATOLOG Y ORDERABLES [facility] [address] [place] [address], [facility] [place] [phone] from Last 3 Months or Most Recently Relevant to Health Maintenance Advance Directives Documents on File Type Date Recorded Patient Applications Engineer Manufacturing Expl anation Adv Directive/Living Will/POA 10/27/2019 2:34 [...] 6:25 PM 08/19/2019 4:51 PM Care Teams Worm Sorter Relationship Specialty Start Date End Date Ran Nuñez MD [address] [place] [phone] PCP - General Family Medicine 08/30/21 Hillary Apple MD [address] [place] [address] Hematology and Oncology 03/17/19 Tony Dumont MD [address] [place] [address] Hematology and Oncology 03/17/19 Maryjo Reinoso, SLUBBER RUNNER Supervisor [employer]oxy Fabrication 03/17/19 Madyson Clay, PharmD 03/17/19 Dana Lala PUNCH PRESS OPERATOR-FITTING ROOM OPERATOR [facility] [facility] [address] [place] [address] Oncology 03/17/19 Tiffanie Nguyen, PUNCH PRESS OPERATOR-BOND ANALYST [address] [place] [address] [address] [place] [address] Family Medicine 03/17/19 Cesar Tavares MD [address] [place] [address] [address] [place] [address] Referring Physician Medical Oncology 03/23/19 Joy Bob 09/22/19 Tony Dumont MD [address] [place] [phone] Hematology and Oncology 10/30/21 Shalini Segal MD [address] [place] [address] HEMATOLOGY & [place] [address] Client Development Director/Oncologist Hematology and Oncology 10/30/21 Stefanie Burns, ROSEMARY Registered Nurse 10/30/21 Fatemeh Bolaños, RN Registered Nurse 10/30/21 Chandana Lu MD [address] [place] [phone] Orthopedic Surgery 03/30/24
--- OUTSIDE RECORDS SUMMARY | 2024-09-14 07:29 | XMS_ITS | Encounter Summary ---
Author Organization [facility] Address [address] [facility] [place] [address] Care Team Providers Care Market Basket Maker Name Role Phone Hillary Apple MD Unavailable [phone] Bill Ferrera MD Unavailable [phone] Tony Dumont MD Unavailable [phone] Shalini Segal MD Unavailable [phone] Karie Jones RN Unavailable Unavailable Maryjo Rienoso LCSW Unavailable Unavailable Madyson Clay PharmD Unavailable Unavaila Dana Galicia MARKETING UNDERWRITER-DIETETIC AIDE Unavailable [phone] Tiffanie Nguyen MARKETING UNDERWRITER-CONSTRUCTION FIELD ENGINEER Unavailable [phone] Stephanie Mahoney RN Unavailable Unavailable Alycia Galvan RN Unavailable UnavailRan Mejía MD Primary Care Provider Cesar Tavares MD Unavailable [phone] Karie Jones RN Unavailable Unavailable Joy Bob Unavailable Fanta Addison Weinstein PharmD Unavailable Unavailab Alida Chang MARKETING UNDERWRITER-CONSTRUCTION FIELD ENGINEER Primary Care Provider Ran Nuñez MD Primary Care Provider Tony Dumont MD Unavailable [phone] Shalini Segal MD Unavailable [phone] Stefanie Burns RN Unavailable Unavaila Fatemeh Kelly RN Unavailable Unavailable Glenn Hernandez MD Unavailable [phone] Chandana Lu MD Unavailable Reason for Visit * Reason Comments Insurance Issue/question termination of insurance Encounter Details Date Type Department Care Team (Late st Contact Info) Description 09/20/2019 Telephone [facility] [address] [place] [address] Joy Bob Insurance Issue/question (termination of insurance) [...] - Joy Bob - 09/20/2019 12:18 PM STRUCTURAL STEEL SHOP SUPERVISOR Called and spoke with Mr. Guillen and discussed the termination of his insurance and find out if he has obtained a different insurance plan. Mr. Guillen stated he was not aware that his plan changed and was recently told. 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 He stated [employer] will be the coverage for his [facility] disability insurance, but they are waiting on a letter from the Human Resource Department. I asked Mr. Guillen if he spoke with or received any information from the HR Department about COBRA,he stated no. I asked and was giving the HR Department contact number [phone]. I informed Mr. Guillen that he will [...] and Anastasia Nice notified in inactive coverage. CTURAL STEEL SHOP SUPERVISOR documented in this encounter Plan of Treatment [...] COVID-19 Confirmed 03/06/2020 07/14/2020 0 4:33 AM STRUCTURAL STEEL SHOP SUPERVISOR COVID-19 Under Investigation 03/07/2020 03/07/2020 03/09/2020 8:54 AM CDT COVID-19 Under Investigation 03/29/2020 03/29/2020 03/30/2020 9:42 AM CDT COVID-19 Confirmed 08/31/2020 08/31/2020 1 4:34 AM STRUCTURAL STEEL SHOP SUPERVISOR COVID-19 Confirmed 09/28/2020 09/28/2020 1 4:33 AM STRUCTURAL STEEL SHOP SUPERVISOR COVID-19 Under Investigation 11/16/2020 11/16/2020 11/16/2020 6:52 PM CDT COVID-19 Confirmed 11/16/2020 11/16/2020 4:35 AM CDT COVID-19 Under Investigation 12/20/2020 12/20/2020 12/20/2020 6:23 PM CDT COVID-19 Under Investigation 04/21/2021 04/21/2021 2021 6:42 AM CDT documented as of this encounter Care Teams Market Basket Maker Relationship Specialty Start Date End Date Ran Nuñez MD [address] [place] [address] PCP - General Family Medicine 03/22/19 12/22/20 Alida Marshall APRN-CONSTRUCTION FIELD ENGINEER [address] [facility] [place] [address] PCP - General Family Medicine 12/23/20 08/29/21 Ran Nuñez MD [address] [place] [address] PCP - General Family Medicine 08/30/21 [place] [address] [place] [phone] PCP - Attributed-[place] 03/04/23 08/21/23 Hillary Apple MD [address] [place] [address] Hematology and Oncology 03/17/19 Bill Ferrera MD [address] [place] [address] Hematology and Oncology 03/17/19 08/27/21 Tony Dumont MD [address] [place] [address] Hematology and Oncology 03/17/19 Shalini Segal MD [facility] [place] [address] Hematology and Oncology 03/17/19 09/29/19 Karie Jones, RN Registered Nurse 03/17/19 09/21/19 Maryjo Reinoso, [facility] Parts Coordinator 03/17/19 Madyson Clay, PharmD 03/17/19 Dana Lala, MARKETING UNDERWRITER-DIETETIC AIDE [address] [place] [address] [address] [place] [address] Oncology 03/17/19 Tiffanie Nguyen, MARKETING UNDERWRITER-CONSTRUCTION FIELD ENGINEER [address] [place] [address] [place] [address] Family Medicine 03/17/19 Stephanie Mahoney, RN Registered Nurse 03/17/19 10/29/21 Alycia Galvan, ROSEMARY 03/17/19 10/29/21 Cesar Tavares MD [address] [place] [phone] Referring Physician Medical Oncology 03/23/19 Karie Jones, RN Registered Nurse 06/08/19 10/29/21 Joy Bob 09/22/19 Addison Shea, PharmD Pharmacist 09/22/19 10/29/21 Tony Dumont MD [address] [place] [phone] Hematology and Oncology 10/30/21 Shalini Segal MD [address] [place] [address] OF HEMATOLOGY & [place] [address] Dye Weigher Helper/Oncologis t Hematology and Oncology 10/30/21 Stefanie Burns, RN Registered Nurse 10/30/21 Fatemeh Bolaños RN Registered Nurse 10/30/21 Chandana Lu MD [address] [place] [address] Orthopedic Surgery 03/30/24 documented as of this encounter
--- OUTSIDE RECORDS SUMMARY | 2024-09-14 07:30 | XMS_ITS ---
Author Organization [facility] Address [address] [place] [address] Care Team Providers Care Link And Link Knitting Machine Operator Name Role Phone Hillary Apple MD Unavailable [phone] Tony Dumont MD Unavailable [phone] Maryjo Reinoso LCSW Unavailable Unavailable Madyson Clay PharmD Unavailable Unavaila Dana Galicia BEET TOPPER-FISHERIES INSPECTOR Unavailable [phone] Tiffanie Nguyen BEET TOPPER-PRINTING MACHINIST Unavailable [phone] Cesar Tavares MD Unavailable [phone] Joy Bob Unavailable Fanta Ran Augustine MD Primary Care Provider Tony Dumont MD Unavailable [phone] Shalini Segal MD Unavailable [phone] Stefanie Burns RN Unavailable Unavaila Fatemeh Kelly RN Unavailable Unavailable Chandana Lu MD Unavailable [phone] Active Problems Problem Noted Date Diagnosed [...] 0 02/28/2020 No medications scheduled. Therapy Complete Hillary Apple MD 3 of 3 cycles started ONCOLOGY TREATMENT Plan Name Start Date Discontinue Date Treatment Medications Discontinue Reason Plan Provider Cycles BMT CONDITIONING [id number] SCHEMA A - (BEAM) CARMUSTINE + ETOPOSIDE + CYTARABINE + MELPHALAN 10/19/19 20 08/04/2022 carmustine (BCNU) Infusioncytarabine (Cytosar) Infusionetoposide (Vepesid) 1250 mL infusionmelphalan (Alkeran) infusion Therapy Complete Rafaela Sood APRN-CNP 2 of 2 cycles started Radiation Treatments * No radiation treatments are documented for this patient in [facility]. Treatments may have been administered in another system. Lifetime Dose Tracking * Chemical Lifetime Dose Automatic Entry Manual Entr y Dose Length Product 8,650.6 mGy-cm 8,650.6 mGy-cm 0 mG y-cm
--- OUTSIDE RECORDS SUMMARY | 2024-09-14 07:31 | XMS_ITS | Patient Health Summary ---
Author Organization [facility] Address [address] [place] [address] Care Team Providers Care Ecommerce Manager Name Role Phone Hillary Apple MD Unavailable [phone] Tony Dumont MD Unavailable [phone] Maryjo ReinosoW Unavailable Unavailable Maydson Clay PharmD Unavailable Unavaila Dana Galicia GROUNDS CREW SUPERVISOR-BUSINESS TECHNOLOGY PROFESSOR Unavailable [phone] Tiffanie Mcpherson GROUNDS CREW SUPERVISOR-INTEL ANALYST Unavailable [phone] Cesar Tavares MD Unavailable [phone] Joy Bob Unavailable Fanta Ran Augustine MD Primary Care Provider Tony Dumont MD Unavailable [phone] Shalini Segal MD Unavailable [phone] Stefanie Burns RN Unavailable Unavaila Fatemeh Kelly RN Unavailable Unavailable Chandana Lu MD Unavailable [phone] Note from [facility],non-owned Affiliates and Associated Physician Practices is amultiple site organization consisting of ambulatory clinics and hospital sitesin [place], [place], [place]. This disclosure is being madepursuant to the [...] times daily 3 refills by 02/20/2024 * Tmmudruqaif-Rboyhkaew-Qdtdso (Trelegy Ellipta) 100-62.5-25 MCG/ACT(Started 03/01/2024) Inhale 1 [...] 37.2 C (99 F) 06/30/2022 6:32 PM BARKER OPERATOR Respiratory Rate 17 02/26/2024 8:05 AM CDT Oxygen Saturation 95% 02/26/2024 8:05 AM CDT Inhaled Oxygen Concentration 50% 09/2019 12:16 AM CDT Weight 114.4 kg (252 lb 3.2 oz) 02/26/2024 8:05 AM CDT Height 172.7 cm (5' 8 ) 02/26/2024 8:05 AM CDT Body Mass Index 38.35 02/26/2024 8:05 AM CDT Medical Devices Implanted Type Area Salesforce Consultant Device Identifier Shelf Expiration Date Model / Serial / Lot Tray Cath 12fr 23cm Hkmn Trifusion 3 Lum Implanted:Qty: 1 on 09/17/2019 at [facility] [employer] 05/03/2021 [id number] / / [id number] Procedures * HOME O2 EVAL (DESATURATION SCREEN)(Performed 03/08/2024) Performed for Post-acute sequelae of COVID-19 ([facility]) * COMPLETE PFT W/WO BRONCHODILATOR(Performed 10/24/2023) Performed for Hypoxemia * AK POLYSOM 6/>YRS CPAP 4/> PARM(Performed 11/25/2022) Performed for LISSA (obstructive sleep apnea), Sleep related hypoxia * INFLUENZA A+B - POCT (IP) URGENT CARE(Performed 06/30/2022) Performed for Lower respiratory tract infection * AK POLYSOM 6/> YRS 4/> SHARAD(Performed 05/17/2022) Performed for COVID-19 with pulmonary comorbidity, LISSA (obstructive sleep apnea), Sleep related hypoxia, Intolerance of continuous positive airway pressure (CPAP) ventilation, Comorbid sleep-related hypoventilation, Periodic limb movement disorder (PLMD) * ECHO COMPLETE W BUBBLE STUDY(Performed 02/22/2022) Performed for COVID-19 long hauler manifesting chronic dyspnea, HFrEF (heart failure with reduced ejection fraction) ([facility]) * HAEMOPHILUS INFLUENZAE B ANTIBODY(Performed 12/20/2021) Performed for S/P autologous bone marrow transplantation ([facility]) * STREP PNEUMO AB IGG 23 SEROTYPES PANEL(Performed 12/20/2021) Performed for S/P autologous bone marrow transplantation ([facility]) * HEPATITIS B SURFACE ANTIBODY QUANT(Performed 12/20/2021) Performed for S/P autologous bone marrow transplantation ([facility]) * PFT OXYGEN DESATURATION STUDY(Performed 11/13/2021) Performed for Chronic respiratory failure with hypoxia ([facility]) * PFT-LAB(Performed 11/13/2021) Performed for Pneumonia due to COVID-19 virus, Status post autologous bone marrow transplant ([facility]) * FLOW CYTOMETRY T-HELPER CELLS (CD4) COUNT(Performed 08/30/2021) Performed for Diffuse large B-cell lymphoma, unspecified body region ([facility]), S/P autologous bone marrow transplantation ([facility]) * VITAMIN D 25-HYDROXY(Performed 08/30/2021) Performed for Vitamin D deficiency * IRON BLOOD(Performed 08/30/2021) Performed for Iron deficiency anemia, unspecified iron deficiency anemia type * IGG BLOOD(Performed 08/30/2021) Performed for Diffuse large B-cell lymphoma, unspecified body region ([facility]) * PHOSPHORUS BLOOD(Performed 08/30/2021) Performed for Diffuse large B-cell lymphoma, unspecified body region ([facility]) * MAGNESIUM BLOOD(Performed 08/30/2021) Performed for Diffuse large B-cell lymphoma, unspecified body region ([facility]) * CBC W AUTO DIFFERENTIAL(Performed 08/30/2021) Performed [...] 03/06/2020) Performed for Abnormal CXR * CYTOLOGY NON-SHIP CONSTRUCTION TEACHER PANEL (STL)(Performed 03/06/2020) Performed for Fever, unspecified [...] (HCC) * ENDOTRACHEAL TUBE NOTE(Performed 03/06/2020) * AK DX BRONCHOSCOPE/LAVAGE(Performed 03/06/2020) Performed for Abnormal CXR [...] * PNEUMOCYSTIS JIROVECI QUANT PCR(Performed 03/03/2020) * QQAD-T-PBRVAU FUNGITELL BAL/BLOOD(Performed 03/03/2020) * CT CHEST W [...] for stem cell transplant * DONOR PANEL [id number](Performed 09/09/2019) Performed for Pre-transplant evaluation for stem [...] 08/17/2019) * ENDOTRACHEAL TUBE NOTE(Performed 08/17/2019) * AK LAP,SPLENECTOMY(Performed 08/17/2019) Performed for Non-Hodgkin's lymphoma of spleen, unspecified non-Hodgkin lymphoma type (HCC) * PREPARE RBC LEUKOREDUCED UNIT(Performed 08/17/2019) Performed for Preoperative examination * TYPE + SCREEN PANEL(Performed 08/17/2019) Performed for Preoperative examination * AK LIVER ELASTOGRAPHY(Performed 08/15/2019) Performed for Pre-transplant evaluation [...] B-cell lymphoma, unspecified body region (HCC) * AK LIVER ELASTOGRAPHY(Performed 06/11/2019) Performed for Splenomegaly * [...] Ramos MD - 03/08/2024 2:07 PM CDT [facility] DEPARTMENT OF PULMONARY, CRITICAL CARE, AND SLEEP MEDICINE OXYGEN TITRATION STUDY Marcello Guillen 03/08/2024 INTERPRETATION The test was performed on the treadmill at a speed of 1 mph at room air. The patient was able to complete 5 minutes with lowest SpO2 of 92%. The test was then ended due to development of left hip pain. Oxygen saturation remained above 92% throughout the limited test. IMPRESSION At the above level of activity the patient's oxygen saturation remained above 92% on room air. Compared to the previous oxygen [...] 03/08/2024 2:07 PM CDT Shara Crouch DO 03/08/2024 4:12 PM Procedure Note Shara Crouch DO - 03/08/2024 2:07 PM CDT Images from the original note were not included. Andrew Francis MD RESPIRATORY THERAPY ORDERABLES * Complete PFT w/wo Bronchodilator [facility] PFT Lab (10/24/2023 4:08 PM CDT) Impressions Patrick Arita MD - 10/24/2023 4:[address] [facility] DEPARTMENT OF PULMONARY, CRITICAL CARE, AND SLEEP MEDICINE PULMONARY FUNCTION TEST Please see technologist's comments mentioned in the report. INTERPRETATION: SPIROMETRY: FVC: normal FEV1: normal FEV1/FVC ratio is normal. BRONCHODILATOR RESPONSE: There is [...] compared to the previous study on 11/13/2021, there is significant increase of FEV1 by 240ml, and significant increase of FVC by 510ml. There is no significant change of TLC or DLCO. Ted Ibanez MD PGY4 Pulmonary & Critical Care Fellow Division of Pulmonary, Critical Care and Sleep Medicine [facility] I have reviewed the above study and agree with the interpretation as listed above. Patrick Arita MD Guide Winder of Pulmonary & Critical Care Medicine [facility] Pager [phone] Narrative Patrick Arita MD - 10/24/2023 4:08 PM CDT Ted Ibanez MD 10/24/2023 4:21 PM Andrew Francis MD RESPIRATORY THERAPY ORDERABLES * AK POLYSOM 6/>YRS CPAP 4/> PARM (11/25/2022 3:44 PM CDT) Narrative Tacos Ramos MD - 11/25/2022 3:44 PM CDT Tacos Ramos MD 11/25/2022 3:51 PM [facility] Accredited by the [place] [employer] [facility], First Floor [address] [place] [address] Telephone : [phone] Medical Records Patient Name: Marcello Guillen : 1970 Date of Study: 10/30/2022 Referring Physician: Tacos Ramos MD Type of Montage: Respiratory Scoring System: [facility] FULL NIGHT THERAPEUTIC POLYSOMNOGRAM INTERPRETATION (10/30/2022) Procedure: The polysomnogram was performed with a generation technologist in attendance. Central, occipital, and temporal [...] obstructive sleep apnea (LISSA). Current Outpatient Medications: acetaminophen (TYLENOL) 325 MG tablet, Take 1 tablet by mouth every 4 hours as needed Maximum allowable Acetaminophen amount = 4 Grams (4000 mg) / 24 hours., Disp: , Rfl: acyclovir (ZOVIRAX) 400 MG tablet, TAKE 2 TABLETS BY MOUTH TWICE DAILY, Disp: 360 tablet, Rfl: 3 albuterol HFA (PROVENTIL;VENTOLIN;PROAIR) 108 (90 Base) MCG/ACT inhaler, Inhale 2 puffs by mouth every 4 hours, Disp: , Rfl: benzonatate (Tessalon) 200 MG capsule, Take 1 (one) capsule by mouth 3 times daily as needed for Cough, Disp: 30 capsule, Rfl: 0 clonazePAM (KLONOPIN) 1 MG tablet, Take 1 (one) tablet by mouth at bedtime, Disp: 30 tablet, Rfl: 0 escitalopram (LEXAPRO) 20 MG tablet, TAKE 1 TABLET BY MOUTH EVERY DAY, Disp: 30 tablet, Rfl: 11 HYDROcodone-acetaminophen (NORCO) 5-325 MG tablet, Take 1 tablet by mouth every 6 hours as needed for Pain, Disp: , Rfl: multivitamin daily tablet, Take 1 tablet by mouth daily with food, Disp: , Rfl: penicillin V potassium (VEETIDS) 250 MG tablet, Take 1 (one) tablet by mouth 2 times daily, Disp: 60 tablet, Rfl: 11 rOPINIRole (REQUIP) 0.25 MG tablet, Take 1 (one) tablet by mouth at bedtime Reasons: Restless Leg Syndrome, Disp: 90 tablet, Rfl: 3 Symbicort 160-4.5 MCG/ACT inhaler, , Disp: , [...] shunt, diffusion abnormality, etc.). Tacos Ramos MD, [facility], [facility] Claims Adjustor, [facility] Professor of Internal Medicine Adjunct Guide Winder of Neurology Division of Pulmonary, Critical Care, and Sleep Medicine [facility] This note was electronically signed on 11/25/2022. CC: Tacos Ramos MD [id number] [facility] [address] [place] [address] Ran Nuñez MD Tacos Ramos MD PROCEDURE/MINOR PRIMO GICAL ORDERABLES * INFLUENZA A+B - POCT (IP) URGENT CARE (06/30/2022 7:04 PM BARKER OPERATOR) Influenza A Antigen Rapid Negative Negative [facility] Influenza B Antigen Rapid Negative Negative [facility] QC Verified Yes Yes [facility] Other SPECIMEN FROM NASAL FOSSAE / Unknown 06/30/2022 7:04 PM BARKER OPERATOR Rad[facility] - POINT OF CARE ORDERABLES [facility] [address] [place] [address] * AK POLYSOM 6/> YRS 4/> SHARAD (05/17/2022 8:16 AM CDT) Narrative Tacos Ramos MD - 05/17/2022 8:16 AM CDT Tacos Ramos MD 05/17/2022 8:19 AM [facility] Accredited by the [place] [employer] [facility] First [facility] [address] [place] [address]. [place] [address] Telephone : [phone] Medical Records Patient Name: Marcello Guillen : 1970 Date of Study: 05/16/2022 Referring Physician: Ran Nuñez MD Type of Montage: Respiratory Scoring System: [facility] FULL NIGHT DIAGNOSTIC POLYSOMNOGRAM INTERPRETATION (05/16/2022) Procedure: The polysomnogram was performed with a generation technologist in attendance. Central, occipital, and temporal [...] obstructive sleep apnea (LISSA). Current Outpatient Medications: acetaminophen (TYLENOL) 325 MG tablet, Take 1 tablet by mouth every 4 hours as needed Maximum allowable Acetaminophen amount = 4 Grams (4000 mg) / 24 hours. (Patient not taking: Reported on 12/20/2021), Disp: , Rfl: acyclovir (ZOVIRAX) 400 MG tablet, TAKE 2 TABLETS BY MOUTH TWICE DAILY, Disp: 360 tablet, Rfl: 3 albuterol HFA (PROVENTIL;VENTOLIN;PROAIR) 108 (90 Base) MCG/ACT inhaler, Inhale 2 puffs by mouth every 4 hours, Disp: , Rfl: clonazePAM (KLONOPIN) 1 MG tablet, Take 1 (one) tablet by mouth at bedtime, Disp: 30 tablet, Rfl: 0 diclofenac sodium EC (VOLTAREN) 75 MG tablet, TK 1 T PO BID PRF PAIN, Disp: , Rfl: escitalopram (LEXAPRO) 20 MG tablet, TAKE 1 TABLET BY MOUTH EVERY DAY, Disp: 30 tablet, Rfl: 11 fluticasone-salmeterol (Advair Diskus) 500-50 MCG/ACT inhaler, Inhale 1 (one) puff by mouth 2 times daily, Disp: 1 Each, Rfl: 5 HYDROcodone-acetaminophen (NORCO) 5-325 MG tablet, Take 1 tablet by mouth every 6 hours as needed for Pain, Disp: , Rfl: multivitamin daily tablet, Take 1 tablet by mouth daily with food, Disp: , Rfl: penicillin V potassium (VEETIDS) 250 MG tablet, Take 1 (one) tablet by mouth 2 times daily, Disp: 60 tablet, Rfl: 11 rOPINIRole (REQUIP) 0.25 MG tablet, Take 1 (one) tablet by mouth at bedtime Reasons: Restless Leg Syndrome, Disp: 90 tablet, Rfl: 3 sulfamethoxazole-trimethoprim (BACTRIM DS; SEPTRA DS) 800-160 MG tablet, TAKE 1 TABLET BY MOUTH EVERY FRIDAY, FRIDAY AND FRIDAY, Disp: 12 tablet, Rfl: 3 vitamin D3-cholecalciferol (CHOLECALCIFEROL) 25 MCG (1000 UNITS) [...] per hour. Virtually all of the arousals were due [...] dental evaluation for bruxism Tacos Ramos MD, [facility], [facility], [facility] Claims Adjustor, [facility] Professor of Internal Medicine Adjunct Guide Winder of Neurology Division of Pulmonary, Critical Care, and Sleep Medicine [facility] This note was electronically signed on 05/17/2022. [...] ug/mL 12/25/2021 5:29 AM CDT [facility] ([facility]) Pneumococcal Serotype 2 Antibody IgG 0.16 ug/mL 12/25/2021 5:29 AM CDT [facility] ([facility]) Pneumococcal Serotype 3 Antibody IgG 11.43 ug/mL 12/25/2021 5:29 AM CDT [facility] ([facility]) Pneumococcal Serotype 4 Antibody IgG >13.92 ug/mL 12/25/2021 5:29 AM CDT [facility] ([facility]) Pneumococcal Serotype 5 Antibody IgG 5.13 ug/mL 12/25/2021 5:29 AM CDT [facility] ([facility]) Pneumococcal Serotype 6B Antibody IgG 7.81 ug/mL 12/25/2021 5:29 AM CDT [facility] ([facility]) Pneumococcal Serotype 7F Antibody IgG 6.01 ug/mL 12/25/2021 5:29 AM CDT [facility] ([facility]) Pneumococcal Serotype 8 Antibody IgG 0.42 ug/mL 12/25/2021 5:29 AM CDT [facility] ([facility]) Pneumococcal Serotype 9N Antibody IgG 3.22 ug/mL 12/25/2021 5:29 AM CDT [facility] ([facility]) Pneumococcal Serotype 9V Antibody IgG 4.04 ug/mL 12/25/2021 5:29 AM CDT [facility] ([facility]) Pneumococcal Serotype 10a Antibody IgG 0.04 ug/mL 12/25/2021 5:29 AM CDT [facility] ([facility]) Pneumococcal Serotype 11a Antibody IgG 0.58 ug/mL 12/25/2021 5:29 AM CDT [facility] ([facility]) Pneumococcal Serotype 12F Antibody IgG 0.07 ug/mL 12/25/2021 5:29 AM CDT [facility] ([facility]) Pneumococcal Serotype 14 Antibody IgG 0.22 ug/mL 12/25/2021 5:29 AM CDT [facility] ([facility]) Pneumococcal Serotype 15b Antibody IgG 0.32 ug/mL 12/25/2021 5:29 AM CDT [facility]) Pneumococcal Serotype 17f Antibody IgG 0.22 ug/mL 12/25/2021 5:29 AM CDT [facility] ([facility]) Pneumococcal Serotype 18C Antibody IgG 4.69 ug/mL 12/25/2021 5:29 AM CDT [facility] ([facility]) Pneumococcal Serotype 19a Antibody IgG 0.87 ug/mL 12/25/2021 5:29 AM CDT [facility] ([facility]) Pneumococcal Serotype 19F Antibody IgG 35.66 ug/mL 12/25/2021 5:29 AM CDT [facility] ([facility]) Pneumococcal Serotype 20 Antibody IgG 0.19 ug/mL 12/25/2021 5:29 AM CDT [facility] ([facility]) Pneumococcal Serotype 22f Antibody IgG 5.52 ug/mL 12/25/2021 5:29 AM [facility] ([facility]) Pneumococcal Serotype 23F Antibody IgG 0.19 ug/mL 12/25/2021 5:29 AM [facility] ([facility]) Pneumococcal Serotype 33f Antibody IgG 8.99 ug/mL 12/25/2021 5:29 AM [facility] ([facility]) Interpretation Pneumococcal Serotype See Note 12/25/2021 5:29 AM [facility] ([facility]) Comment: INTERPRETIVE INFORMATION: Streptococcus pneumoniae Antibodies, [...] exposure, immunocompetence, and pneumococcal serotype. Responder Status Antibody Ratio Non-Responder . . . . [...] long-term protection(2). References: 1. Ashli ANDINO, Ryan RIZO, Earnest X, Prince GARCIA, Dev WANG. Multilaboratory assessment of threshold versus fold-change algorithms for minimizing analytical variability in multiplexed pneumococcal IgG measurements. Clin Vaccine Immunol. 2014;21(7):982-8. 2. Ashli ANDINO, Dev WANG. Use and Clinical Interpretation of Pneumococcal Antibody Measurements in the Evaluation of Humoral Immune Function. Clin Vaccine Immunol. 2015;22(2):148-152. This test was developed and its performance characteristics determined by [facility]. It has not been cleared or approved by the US Food and Drug Administration. This test was performed in a CLIA certified laboratory and is intended for clinical purposes. Performed By: [facility] [address] [place] [address] Customer Service Receptionist: Clare Linda MD Blood BLOOD SPECIMEN / Unknown Venipuncture / Unknown 12/20/2021 2:53 PM CDT 12/20/2021 3:19 PM CDT Lara Patrick GROUNDS CREW SUPERVISOR-INTEL ANALYST LAB - CHEMISTRY ORDERABLES [facility] ([facility]) [address] [place] [address], [facility] * HEPATITIS B SURFACE ANTIBODY QUANT (12/20/2021 2:53 PM CDT) Pathologist [facility] Hepatitis B Virus Surface Antibody 17.82 IU/L 12/22/2021 5:57 PM CDT [facility] ([facility]) Comment: The anti-HBs is greater than [...] Cellular and Tissue-Based Products (HCT/P). Performed By: [facility] [address] [place] [address] Customer Service Receptionist: Clare Linda MD Blood BLOOD SPECIMEN / Unknown Venipuncture / Unknown 12/20/2021 2:53 PM CDT 12/20/2021 3:19 PM CDT Tiffanie Alvess GROUNDS CREW [facility] LAB - SEROLOGY ORDERABLES Performing Organization Address [facility]/State/ZIP Co de Phone Number [facility]) [address] * HAEMOPHILUS INFLUENZAE B ANTIBODY (12/20/2021 2:53 PM CDT) [facility] Signature Influenza B IgG Antibody 0.3 ug/mL 12/23/2021 7:27 AM CDT [facility] ([facility]) Comment: INTERPRETIVE INFORMATION: H. Influenzae b Ab, IgG Less than 1.0 ug/mL ...... Antibody concentration not protective. 1.0 ug/mL or greater ..... Antibodies to H. Influenzae b detected. Suggestive of protection. Responder status is determined according to the ratio of post-vaccination concentration to pre-vaccination concentration of Haemophilus influenza b antibody, IgG as follows: 1. If the post-vaccination concentration is less than 3.0 ug/mL, the patient is considered to be a non-responder. 2. If the post-vaccination concentration is greater than or equal to 3.0 ug/mL, a patient with a ratio of greater than or equal to 4 is a good responder, a ratio of 2-4 is a weak responder, and a ratio of less than 2 is considered a non-responder. This test was developed and its performance characteristics determined by [facility]. It has not been cleared or approved by the US Food and Drug Administration. This test was performed in a CLIA certified laboratory and is intended for clinical purposes. Performed By: [facility] [address] [place] [address] Customer Service Receptionist: Clare Linda MD Blood BLOOD SPECIMEN / Unknown Venipuncture / Unknown 12/20/2021 2:53 PM CDT 12/20/2021 3:19 PM CDT Tiffanie Alvess [facility] LAB - CHEMISTRY ORDERABLES [facility] ([facility]) [place] [address], [facility] * PFT OXYGEN DESATURATION STUDY (11/13/2021 1:27 PM CDT) Impressions Apolinar Ramos MD - 11/13/2021 1:27 PM CDT [facility] DEPARTMENT OF PULMONARY, CRITICAL CARE, AND SLEEP MEDICINE OXYGEN TITRATION STUDY Marcello Guillen 11/18/2021 INTERPRETATION The test was performed on the treadmill at a speed of 1 mph at room air with a starting SpO2 of 98%. The patient was able to complete 4 minutes with lowest SpO2 of 90%. Then the treadmill speed was increased to 2 mph, the patient's SpO2 remained above 90% throughout the test. IMPRESSION 1. At the above level of activity the patient's oxygen saturation remained above 90% on room air. Netta Forrest MD (fellow) Pulmonary & Critical Care I have personally reviewed the pulmonary function test data and made adjustment to the interpretation where necessary. Apolinar Ramos MD 11/21/2021 Narrative Apolinar Ramos MD - 11/13/2021 1:27 PM CDT Christina Forrest MD 11/18/2021 4:49 PM Andrew Francis MD PFT ORDERABLES * COMPLETE PFT (11/13/2021 1:26 PM CDT) Impressions Apolinar Ramos MD - 11/13/2021 1:[address] [facility] DEPARTMENT OF PULMONARY, CRITICAL CARE, AND SLEEP MEDICINE PULMONARY FUNCTION TEST Please see technologist's comments mentioned in the report. INTERPRETATION: SPIROMETRY: FVC: decreased FEV1: normal FEV1/FVC ratio is normal. (This data is based [...] by 2330ml and DLCO by 9.11 mLCO/min/mmHg. There was no significant change in FVC. Netta Forrest M.D. Division of Pulmonary, Critical Care, & Sleep Medicine [facility] I have personally reviewed the pulmonary function test data and made adjustment to the interpretation where necessary. Apolinar Ramos MD 11/21/2021 Narrative Apolinar Ramos MD - 11/13/2021 1:26 PM CDT Christina Forrest MD 11/18/2021 4:49 PM Hillary Apple MD RESPIRATORY THERAPY ORDERABLES * FLOW CYTOMETRY T-HELPER CELLS (CD4) COUNT (08/30/2021 11:36 AM BARKER OPERATOR) Only the most recent of2 resultswithin the time period is included. Reason for test Diffuse large B-cell lymphoma, unspecified body region S/P autologous bone marrow transplantation V42.81 08/30/2021 3:30 PM [facility] Client Specimen ID # [id number] 08/30/2021 3:30 PM [facility] Number of Markers 3 08/30/2021 3:30 PM [facility] Flow Cytometry Results Differential Result Comment WBC Count /uL 12,600 % Lymphocytes 28 Lymphocyte Count u/L 3,528 Cell Region A: Lymphocytes Surface Marker Results % Absolute Count (cells/uL) CD3 85 2,999 CD3+CD4+ 10 353 CD3+CD8+ 73 2,575 CD4:CD8 Ratio 0.14 08/30/2021 3:30 PM [facility] Flow Cytometry Interpretation Testing is technical only and does not require an interpretation of results. 08/30/2021 3:30 PM [facility] Reference Range Adult Normal Reference Range Adult (> 18 years) CD3 54-84 % CD4 33-63 % CD8 12-39 % CD19 5-19 % CD56 6-26 % CD4+CD45RA+ 30-50 % CD4+CD45RO+ 17-42 % CD19+CD27+ 7-48 % CD19+CD27+IgD+ 7-29 % CD19+CD27+IgD- 3-23 % CD19+GC86-TlG+ 29-93 % % 08/30/2021 3:30 PM [facility] Disclaimer Test performed at [facility], [address], [place], [address]. This test was developed and its performance [...] perform high complexity clinical testing. By law [place], CD4 lymphocyte counts on patients with HIV infection must be reported by the physician to the [facility] authority. 08/30/2021 3:30 PM [facility] [facility] Embedded Images 3:30 PM [facility] Blood BLOOD SPECIMEN / Unknown Venipuncture / Unknown 08/30/2021 11:36 AM BARKER OPERATOR 08/30/2021 11:45 AM [facility] Tiffanie Mcpherson GROUNDS CREW SUPERVISOR-INTEL ANALYST LAB - PATHOLOGY /CYTOLOGY ORDERABLES [facility] [address] [place] [address]. [address] [phone] * PSA FREE + TOTAL PANEL (08/30/2021 11:36 AM BARKER OPERATOR) PSA Total 2.3 0.0 - 4.0 ng/mL 08/30/2021 12:32 PM [facility] PSA Free 0.27 0.00 - 0.50 ng/mL 08/30/2021 12:32 PM [facility] PSA % Free 12 See Comment % 08/30/2021 12:32 PM [facility] Comment: [facility] uses the [employer] Operator method for Total and Free PSA measurements. Measurements obtained with different assay methods should not be used interchangeably. Patients with normal Digital Rectal Exam (LELIA) results and Total PSA results of 4.0 - 10.0 ng/mL represent a diagnostic castillo zone. The decision of whether or not to perform a biopsy should not be based on the value of Free and/or Total PSA alone. Distribution of NUCLEAR ENGINEERING TECHNICIAN % Free PSA Values for specimens with NUCLEAR ENGINEERING TECHNICIAN Total PSA values between 4.0 and 10.0 ng/mL: % Free PSA Ranges <10.0 10.0-15.0 15.0-20.0 20.0-26.0 >26.0 Number of ----- --------- --------- --------- ----- Subjects Biopsy --------- ------ Negative 307 9.4 22.5 25.4 24.8 17.9 Positive 123 27.6 30.9 17.9 15.4 8.1 PSA % Free 08/30/2021 12:32 PM BARKER OPERATOR [facility] Blood BLOOD SPECIMEN / Unknown Venipuncture / Unknown 08/30/2021 11:36 AM BARKER OPERATOR 08/30/2021 11:46 AM BARKER OPERATOR Tiffanie Mcpherson GROUNDS CREW SUPERVISOR-INTEL ANALYST LAB - CHEMISTRY ORDERABLES Performing Organization Address City/State/[facility] Co de Phone Number [address] [address], [facility] [phone] * VARICELLA ZOSTER ANTIBODY IGG (08/30/2021 11:36 AM BARKER OPERATOR) Only the most recent of2 resultswithin the time period is included. Varicella zoster Virus Antibody IgG 345.3 IV 08/31/2021 11:45 PM BARKER OPERATOR [facility] ([facility]) Comment: INTERPRETIVE INFORMATION: VZV Ab, IgG 134.9 IV or less ....... Negative - No significant level of detectable IgG varicella-zoster antibody. 135.0 - 164.9 IV ....... Equivocal - Repeat testing in 10-14 days may be helpful. 165.0 IV or greater .... Positive - IgG antibody to varicella-zoster detected, which may indicate a current or past varicella-zoster infection. The best evidence for current infection is a significant change on two appropriately timed specimens, where both tests are done in the same laboratory at the same time. Performed By: [facility] [address] [place] [address] Customer Service Receptionist: Clare Linda MD Blood BLOOD SPECIMEN / Unknown Venipuncture / Unknown 08/30/2021 11:36 AM BARKER OPERATOR 08/30/2021 11:44 AM BARKER OPERATOR Tiffanie Mcpherson [facility] LAB - CHEMISTRY ORDERABLES Performing Organization Address [facility] Co de Phone Number [facility] ([facility]) [address] [place], [place] [address] * VITAMIN D 25-HYDROXY (08/30/2021 11:36 AM BARKER OPERATOR) Only the most recent of2 resultswithin the time period is included. Vitamin D, 25 Hydroxy 35.0 30.0 - 80.0 ng/mL 08/30/2021 12:58 PM BARKER OPERATOR [facility] Comment: The recommendations for 25-Hydroxy Vitamin D clinical decision points are as follows: Deficient: <20.0 ng/mL Insufficient: 20.0 - 29.9 ng/mL Sufficient: > or =30.0 ng/mL If the 25-Hydroxy Vitamin D results are inconsitent with clinical evidence, it is recommended that follow-up testing using a method such as LC/MS/MS be performed to confirm the result. Reference: The Endocrine Society Clinical Practice Guidelines. 2010 Blood BLOOD SPECIMEN / Unknown Venipuncture / Unknown 08/30/2021 11:36 AM BARKER OPERATOR 08/30/2021 11:46 AM BARKER OPERATOR Tiffanie Seymour Patrick [facility] LAB - CHEMISTRY ORDERABLES [address] [address], [facility] [phone] * (ABNORMAL) CBC W AUTO DIFFERENTIAL (08/30/2021 11:36 AM BARKER OPERATOR) Only the most recent of78 resultswithin the time period is included. Pathologist [facility] WBC 12.6(H) 3.5 - 10.5 10 3/uL 08/30/2021 12:02 PM [facility] RBC 4.19(L) 4.30 - 5.70 10 6/uL 08/30/2021 12:02 PM [facility] Hemoglobin 13.4 12.0 - 17.6 g/dL 08/30/2021 12:02 PM [facility] Hematocrit 39.1 35.2 - 51.7 % 08/30/2021 12:02 PM [facility] MCV 93.3 80.7 - 98.3 fL 08/30/2021 12:02 PM [facility] MCH 32.0 26.7 - 34.0 pg 08/30/2021 12:02 PM [facility] MCHC 34.3 30.8 - 35.9 g/dL 08/30/2021 12:02 PM [facility] Platelet Count 274 150 - 400 10 3/uL 08/30/2021 12:02 PM [facility] RDW-SD 56.0(H) 36.0 - 50.0 fL 08/30/2021 12:02 PM [facility] RDW-CV 16.3(H) 11.2 - 14.8 % 08/30/2021 12:02 PM [facility] MPV 12.3 9.4 - 12.9 fL 08/30/2021 12:02 PM [facility] nRBC Absolute 0.00 0 10 3/uL 08/30/2021 12:02 PM [facility] nRBC Auto 0.0 0 /100 WBC 08/30/2021 12:02 PM [facility] Neutrophils % 58.0 35.0 - 70.0 % 08/30/2021 12:02 PM [facility] Lymphocytes % 31.2 20.0 - 43.0 % 08/30/2021 12:02 PM [facility] Monocytes % 6.1 5.0 - 13.0 % 08/30/2021 12:02 PM [facility] Eosinophils % 3.3 0.0 - 6.0 % 08/30/2021 12:02 PM [facility] Basophil % 1.1 0.0 - 2.0 % 08/30/2021 12:02 PM [facility] Neutrophils Absolute 7.3(H) 1.6 - 7.0 10 3/uL 08/30/2021 12:02 PM [facility] Lymphocyte Absolute 3.9 1.1 - 3.9 10 3/uL 08/30/2021 12:02 PM [facility] Monocytes Absolute 0.77 0.26 - 1.07 10 3/uL 08/30/2021 12:02 PM [facility] Eosinophils Absolute 0.42 0.00 - 0.47 10 3/uL 08/30/2021 12:02 PM [facility] Basophils Absolute 0.14(H) 0.00 - 0.08 10 3/uL 08/30/2021 12:02 PM [facility] Immature Granulocytes % 0.3 0.0 - 1.0 % 08/30/2021 12:02 PM [facility] Immature Granulocytes Absolute 0.04 08/30/2021 12:02 PM [facility] Blood BLOOD SPECIMEN / Unknown Venipuncture / Unknown 08/30/2021 11:36 AM BARKER OPERATOR 08/30/2021 11:45 AM BARKER OPERATOR Tiffanie Mcpherson APRN-INTEL ANALYST LAB - HEMATOLOG Y ORDERABLES [facility] [address] [place] [address], [facility] [phone] * (ABNORMAL) COMPREHENSIVE METABOLIC PANEL (08/30/2021 11:36 AM BARKER OPERATOR) Only the most recent of73 resultswithin the [...] Unknown Venipuncture / Unknown 08/30/2021 11:36 AM BARKER OPERATOR 08/30/2021 11:46 AM [facility] Tiffanie Mcpherson GROUNDS CREW SUPERVISOR-INTEL ANALYST LAB - CHEMISTRY ORDERABLES [facility] [address] [place] [address], [facility] [phone] * (ABNORMAL) PHOSPHORUS BLOOD (08/30/2021 11:36 AM BARKER OPERATOR) Only the most recent of73 resultswithin the time period is included. Phosphorus 1.9(L) 2.8 - 5.1 mg/dL 08/30/2021 12:10 PM BARKER OPERATOR [facility] Blood BLOOD SPECIMEN / Unknown Venipuncture / Unknown 08/30/2021 11:36 AM BARKER OPERATOR 08/30/2021 11:46 AM BARKER OPERATOR Tiffanie Seymour Patrick GROUNDS CREW SUPERVISOR-INTEL ANALYST LAB - CHEMISTRY ORDERABLES Performing Organization Address City/[facility]/ZIP Co de Phone Number [address] [address], [facility] [phone] * MAGNESIUM BLOOD (08/30/2021 11:36 AM BARKER OPERATOR) Only the most recent of77 resultswithin the time period is included. Magnesium 1.9 1.6 - 2.6 mg/dL 08/30/2021 12:10 PM BARKER OPERATOR [facility] Blood BLOOD SPECIMEN / Unknown Venipuncture / Unknown 08/30/2021 11:36 AM BARKER OPERATOR 08/30/2021 11:46 AM BARKER OPERATOR Tiffanie Seymour Patrick GROUNDS CREW SUPERVISOR-[facility] LAB - CHEMISTRY ORDERABLES Performing Organization Address City/[facility]/ZIP Co de Phone Number [address] [address], [place] [phone] * IRON BLOOD (08/30/2021 11:36 AM BARKER OPERATOR) Only the most recent of3 resultswithin the time period is included. Iron 138 50 - 175 ug/dL 08/30/2021 12:39 PM BARKER OPERATOR [facility] Blood BLOOD SPECIMEN / Unknown Venipuncture / Unknown 08/30/2021 11:36 AM BARKER OPERATOR 08/30/2021 11:44 AM BARKER OPERATOR Tiffanie Mcpherson GROUNDS CREW SUPERVISOR-INTEL ANALYST LAB - CHEMISTRY ORDERABLES [address] [place] [address], [place] [phone] * (ABNORMAL) IGG BLOOD (08/30/2021 11:36 AM BARKER OPERATOR) Only the most recent of14 resultswithin the time period is included. IgG 416(L) 767-1,590 mg/dL 08/30/2021 12:11 PM [facility] Blood BLOOD SPECIMEN / Unknown Venipuncture / Unknown 08/30/2021 11:36 AM BARKER OPERATOR 08/30/2021 11:44 AM BARKER OPERATOR Tiffanie Mcpherson GROUNDS CREW SUPERVISOR-INTEL ANALYST LAB - CHEMISTRY ORDERABLES [facility] [address] [place] [address], [place] [phone] * (ABNORMAL) LIPID PROFILE (08/30/2021 11:36 AM BARKER OPERATOR) Cholesterol Total 207(H) <200 mg/dL 08/30/2021 12:10 [...] Triglycerides 87 <150 mg/dL 08/30/2021 12:10 PM [facility] Comment: ATP III Classification of Triglycerides: <150 mg/dL: Normal 150 - 199 mg/dL: Borderline High 200 - 400 mg/dL: High >500 mg/dL: Very High Blood BLOOD SPECIMEN / Unknown Venipuncture / Unknown 08/30/2021 11:36 AM BARKER OPERATOR 08/30/2021 11:46 AM BARKER OPERATOR Tiffanie Mcpherson GROUNDS CREW SUPERVISOR-INTEL ANALYST LAB - CHEMISTRY ORDERABLES [place] [address] [place] [address], [facility] [phone] * CT CHEST ABDOMEN PELVIS WO CONT (08/30/2021 10:33 AM BARKER OPERATOR) Anatomical Region Laterality Modality Chest, Abdomen, Pelvis Computed Tomography 08/30/2021 10:4 9 AM BARKER OPERATOR Impressions 08/30/2021 2:51 PM BARKER OPERATOR Impression: 1.Interval improvement in persistent reticulation, cystic [...] FERNANDES M.D. on 08/30/2021 2:51 PM . Narrative 08/30/2021 2:51 PM BARKER OPERATOR Procedure Information DATE: 08/30/2021 10:33 AM EXAMINATION: [...] detected Not detected 2021 6:42 AM CDT [facility]CRO[facility] Microbiology SPECIMEN FROM NASOPHARYNGEAL STRUCTURE / Unknown Collection / Unknown 04/21/2021 11:56 AM CDT 04/21/2021 11:56 AM CDT Narrative [facility] - 2021 6:42 AM CDT This nucleic acid amplification assay performance was validated by [facility]. This test has been [...] assay are available upon request. Christina Noland GROUNDS CREW SUPERVISOR-INTEL ANALYST LAB - MICR OBIOLOGY ORDERABLES [facility] [address] [place] [address], [facility] [phone] * XR CHEST 2VW (04/21/2021 11:47 AM [...] on 04/21/2021 at 11:45 AM Christina Noland GROUNDS CREW SUPERVISOR-INTEL ANALYST DIAGNOSTIC IMAGING ORDERABLES * SARS-COV-2 (COVID-19) ANTIBODY IGG (02/15/2021 1:25 PM CDT) Only the most recent of9 resultswithin the time period is included. CoV2 IGG Negative 02/16/2021 12:18 AM CDT [facility] Blood BLOOD SPECIMEN / Unknown Venipuncture / Unknown 02/15/2021 1:25 PM CDT 02/15/2021 1:32 PM CDT [facility] - 02/16/2021 12:18 AM CDT This serologic based test was developed by [employer] and its performance characteristics determined by [facility]. This test has [...] due to past or present infection with [id number] coronavirus strains. Rigorous scientific studies have not been completed to determine if detectable IgG to SARS-CoV-2 confers protective immunity. Tiffanie Mcpherson GROUNDS CREW SUPERVISOR-INTEL ANALYST LAB - CHEMISTRY ORDERABLES [facility] [address] [place] [address], [facility] [phone] * (ABNORMAL) DIFFERENTIAL MANUAL (02/15/2021 1:25 PM CDT) Only the most recent of24 resultswithin the time period is included. WBC (corrected for NRBC) 16.0 10 3/uL 02/15/2021 2:38 PM CDT [facility] Total Cell Count 100 02/16/20 21 2:38 PM CDT [facility] Neutrophils Absolute Manual 10.24(H) 1.60 - 7.00 10 3/uL 02/15/2021 2:38 PM CDT [facility] Comment:(BANDS+SEGS) x WBC = NEUT # (ANC) Lymphocyte Absolute Manual 5.44(H) 1.10 - 3.90 10 3/uL 02/15/2021 2:38 PM CDT [facility] Monocytes Absolute Manual 0.16(L) 0.26 - 1.07 10 3/uL 02/15/2021 2:38 PM CDT [facility] Eosinophils Absolute Manual 0.16 0.00 - 0.47 10 3/uL 02/15/2021 2:38 PM CDT [facility] Neutrophil % Manual 64 35 - 70 % 02/15/2021 2:38 PM CDT [facility] Lymphocyte % Manual 34 20 - 43 % 02/15/2021 2:38 PM CDT [facility] Monocytes % Manual 1(L) 5 - 13 % 02/15/2021 2:38 PM CDT [facility] Eosinophils % Manual 1 0 - 6 % 02/15/2021 2:38 PM [facility] Platelet Estimate Adequate Adequate 02/15/2021 2:38 PM [facility] Anisocytosis 1+(A) None 02/15/2021 2:38 PM CDT [facility] Blank-Lankin Bodies Rare(A) None 02/15/2021 2:38 PM CDT [facility] Target Cells 1+(A) None 02/15/2021 2:38 PM CDT [facility] Ovalocytes Few(A) None 02/15/2021 2:38 PM CDT [facility] Blood BLOOD SPECIMEN / Unknown Venipuncture / Unknown 02/15/2021 1:25 PM CDT 02/15/2021 1:35 PM CDT Tiffanie Alvess [facility] LAB - HEMATOLOG Y ORDERABLES Performing Organization Address City/[facility]/ZIP Co de Phone Number [address] [address], [facility] [phone] * (ABNORMAL) RBC MORPHOLOGY (11/16/2020 11:20 AM CDT) Only the most recent of15 resultswithin the time period is included. Platelet Estimate Adequate Adequate 11/16/2020 12:20 PM CDT [facility] Anisocytosis 1+(A) None 11/16/2020 12:20 PM CDT [facility] Blank-Lankin Bodies 1+(A) None 11/16/2020 12:20 PM CDT [facility] Target Cells 1+(A) None 11/16/2020 12:20 PM CDT [facility] Schistocytes Occasional(A ) None 11/16/2020 12:20 PM CDT [facility] Ovalocytes 1+(A) None 11/16/2020 12:20 PM CDT [facility] Blood BLOOD SPECIMEN / Unknown Venipuncture / Unknown 11/16/2020 11:20 AM CDT 11/16/2020 11:31 AM CDT Tiffanie Mcpherson GROUNDS CREW [facility]VIS[facility] LAB - HEMATOLOG Y ORDERABLES Performing Organization Address City/[facility]/ZIP Co de Phone Number [address] [address], [place] [phone] * TROPONIN I (09/28/2020 3:02 PM BARKER OPERATOR) Only the most recent of2 resultswithin the time period is included. [facility] Troponin I <0.010 <0.032 ng/mL 09/28/2020 5:24 PM BARKER OPERATOR [facility] Blood BLOOD SPECIMEN / Unknown Venipuncture / Unknown 09/28/2020 3:02 PM BARKER OPERATOR 09/28/2020 4:20 PM BARKER OPERATOR Andrew Francis MD LAB - CHEMISTRY [place] [address] [address], [place] [phone] * (ABNORMAL) C-REACTIVE PROTEIN (09/28/2020 3:02 PM BARKER OPERATOR) Only the most recent of22 resultswithin the time period is included. [facility] C-Reactive Protein 0.9(H) <=0.5 mg/dL 09/28/2020 6:48 PM BARKER OPERATOR [facility] Blood BLOOD SPECIMEN / Unknown Venipuncture / Unknown 09/28/2020 3:02 PM BARKER OPERATOR 09/28/2020 6:48 PM BARKER OPERATOR Andrew Francis MD LAB - CHEMISTRY [place] [address] [address], [place] [phone] * (ABNORMAL) D-DIMER (09/28/2020 3:02 PM BARKER OPERATOR) Only the most recent of17 resultswithin the time period is included. [facility] D-Dimer Quantitative 0.67(H) <=0.50 mcg/mL FEU 09/28/2020 4:06 PM BARKER OPERATOR [facility] Comment: In the absence of clinical symptoms, a value less than or equal to 0.5 mcg/mL FEU significantly decreases the probability of PE/DVT (negative predictive value >95%). 1 mcg/mL FEU = 1 Fibrinogen Equivalent Unit (approximates 0.5 mcg/ml of D- Dimer). ISTH DIAGNOSTIC SCORING SYSTEM FOR DIC Score 0 1 2 3 Platelet Count(x10^3/uL) > 100 < 100 < 50 N/A PT Prolongation above upper limit of normal 0-3 3-6 > 6 N/A range (seconds) Fibrinogen (mg/dL) > 100 < 100 N/A N/A D-Dimer (mcg/mL FEU) < 0.50 N/A 0.50-5.0 > 5 Calculate Cumulative Score: > or = 5 :compatible with overt DIC < 5 :suggestive for non-overt DIC N/A = Non applicable Reference: Br. J. Haematol. 145:24-33. Blood BLOOD SPECIMEN / Unknown Venipuncture / Unknown 09/28/2020 3:02 PM BARKER OPERATOR 09/28/2020 4:06 PM BARKER OPERATOR Andrew Francis MD LAB - COAGULATION OR DERABLES Performing Organization Address City/[facility]/ZIP Co de Phone Number [address] [address], [place] [phone] * FERRITIN (09/28/2020 3:02 PM BARKER OPERATOR) Only the most recent of18 resultswithin the time period is included. Pathologist [facility] Ferritin 93 22 - 275 ng/mL 09/28/2020 7:17 PM BARKER OPERATOR [facility] Blood BLOOD SPECIMEN / Unknown Venipuncture / Unknown 09/28/2020 3:02 PM BARKER OPERATOR 09/28/2020 6:48 PM BARKER OPERATOR Andrew Francis MD LAB - CHEMISTRY ORDE RABLES Performing Organization Address [facility] Co de Phone Number [address] [address], [place] [phone] * (ABNORMAL) ERYTHROCYTE SEDIMENTATION RATE (09/28/2020 2:28 PM BARKER OPERATOR) Only the most recent of17 resultswithin the time period is included. [facility] Erythrocyte Sedimentation Rate Westergren 29(H) 0 - 20 MM/HR 09/28/2020 6:30 PM BARKER OPERATOR [facility] Blood BLOOD SPECIMEN / Unknown Venipuncture / Unknown 09/28/2020 2:28 PM BARKER OPERATOR 09/28/2020 6:26 PM BARKER OPERATOR Andrew Francis MD LAB - HEMATOLOGY ORD ERABLES Performing Organization Address [facility]/ZIP Co de Phone Number [address] [address], [place] [phone] * B-TYPE NATRIURETIC PEPTIDE (09/28/2020 2:28 PM BARKER OPERATOR) Only the most recent of3 resultswithin the time period is included. [facility] BNP <10 See Comment pg/mL 09/28/2020 7:55 PM BARKER OPERATOR [facility] Comment: A decision threshold of 100 pg/mL has been demonstrated to provide the maximal combination of sensitivity, specificity and predictive value for the diagnosis of congestive heart failure (CHF). Virtually all patients with no evidence of CHF have BNP values less than 100 pg/mL. A BNP value greater than 100 pg/mL is consistent with the diagnosis of CHF in the appropriate clinical setting. In a study of 693 patients (male and female) with diagnosed CHF, the following values were determined based on the NYHA functional classification system: NYHA Functional Class Mean Valule (pg/mL) % >100 pg/mL I 320 58.1 II 432 73.0 III 656 79.0 IV 1635 98.3 Blood BLOOD SPECIMEN / Unknown Venipuncture / Unknown 09/28/2020 2:28 PM BARKER OPERATOR 09/28/2020 6:26 PM BARKER OPERATOR Andrew Francis MD LAB - CHEMISTRY [place] [facility] Organization Address City/State/ZIP Co de Phone Number [address] [address], [facility] [phone] * CT CHEST WO CONTRAST (09/28/2020 1:37 PM BARKER OPERATOR) Anatomical Region Laterality Modality Chest Computed Tomogra phy 09/28/2020 2:01 PM BARKER OPERATOR Impressions 09/28/2020 2:05 PM BARKER OPERATOR Impression: Interval development of areas of reticulation, cystic change, and bronchiectasis as detailed above, with some areas of volume loss. The findings suggest postinflammatory fibrosis. This report was electronically signed by YARA MADRIGAL on 09/28/2020 2:05 PM . Narrative 09/28/2020 2:05 PM BARKER OPERATOR Procedure Information DATE: 09/28/2020 1:37 PM EXAMINATION: [...] * ACTH 60 MINUTES (07/14/2020 12:04 PM BARKER OPERATOR) Cortisol 60 Min 23.6 >=20.0 mcg/dL 07/14/2020 1:00 PM BARKER OPERATOR [facility] Blood BLOOD SPECIMEN / Unknown Venipuncture / Unknown 07/14/2020 12:04 PM BARKER OPERATOR 07/14/2020 12:16 PM BARKER OPERATOR Tiffanie Mcpherson [facility] LAB - CHEMISTRY ORDERABLES Performing Organization Address City/[facility]/ZIP Co de Phone Number [address] [address], [facility] [phone] * ACTH CORTISOL BASELINE (07/14/2020 10:44 AM BARKER OPERATOR) Cortisol Baseline 13.4 No Reference Range Established mcg/dL 07/14/2020 11:50 AM BARKER OPERATOR [facility] Blood BLOOD SPECIMEN / Unknown Venipuncture / Unknown 07/14/2020 10:44 AM BARKER OPERATOR 07/14/2020 11:07 AM BARKER OPERATOR Tiffanie Mcpherson [facility] LAB - CHEMISTRY ORDERABLES [address] [address], [facility] [phone] * (ABNORMAL) TRANSFERRIN (07/14/2020 10:44 AM BARKER OPERATOR) Only the most recent of2 resultswithin the time period is included. Transferrin 196 174 - 382 mg/dL 07/14/2020 12:05 PM [facility] Transferrin Saturation % 8(L) 16 - 50 % 07/14/2020 12:05 PM [facility] Blood BLOOD SPECIMEN / Unknown Venipuncture / Unknown 07/14/2020 10:44 AM BARKER OPERATOR 07/14/2020 11:27 AM BARKER OPERATOR [facility] LAB - CHEMISTRY ORDERABLES Performing Organization Address [facility] Co de Phone Number [facility] [address] [place] [address], [facility] [phone] * VITAMIN D 1,25 DIHYDROXY (07/14/2020 10:44 AM BARKER OPERATOR) Pathologist [facility] Vitamin D, 1,25 Dihydroxy 43.1 19.9 - 79.3 pg/mL 07/16/2020 12:26 AM BARKER OPERATOR [facility]) Comment: INTERPRETIVE INFORMATION: Vitamin D, 1,25-Dihydroxy This test is primarily indicated during patient evaluation for hypercalcemia and renal failure. A normal result does not rule out Vitamin D deficiency. The recommended test for diagnosing Vitamin D deficiency is Vitamin D 25-hydroxy. Performed By: [facility] [address] [place] [address] Customer Service Receptionist: Clare Linda MD Blood BLOOD SPECIMEN / Unknown Venipuncture / Unknown 07/14/2020 10:44 AM BARKER OPERATOR 07/14/2020 11:27 AM BARKER OPERATOR [facility] LAB - CHEMISTRY ORDERABLES Performing Organization Address [facility] de Phone Number [facility]) [address] * RETIC COUNT (07/14/2020 10:44 AM BARKER OPERATOR) Only the most recent of2 resultswithin the time period is included. Pathologist [facility] [facility] Reticulocyte % 1.1 0.4 - 2.5 % 07/14/2020 11:17 AM BARKER OPERATOR [facility] Reticulocyte Absolute 0.05 0.02 - 0.13 10 6/uL 07/14/2020 11:17 AM [facility] Blood BLOOD SPECIMEN / Unknown Venipuncture / Unknown 07/14/2020 10:44 AM BARKER OPERATOR 07/14/2020 11:07 AM BARKER OPERATOR Tiffanie Mcpherson [facility] LAB - HEMATOLOG Y ORDERABLES [address] [address], [facility] [phone] * FOLATE (07/14/2020 10:44 AM BARKER OPERATOR) Folate 13.6 7.0 - 31.4 ng/mL 07/14/2020 12:05 PM BARKER OPERATOR [facility] Blood BLOOD SPECIMEN / Unknown Venipuncture / Unknown 07/14/2020 10:44 AM BARKER OPERATOR 07/14/2020 11:07 AM BARKER OPERATOR Tiffanie Mcpherson [facility] LAB - CHEMISTRY ORDERABLES Performing Organization Address City/[facility]/ZIP Co de Phone Number [address] [address], [facility] [phone] * VITAMIN B12 (07/14/2020 10:44 AM BARKER OPERATOR) Vitamin B12 544 213 - 816 pg/mL 07/14/2020 12:05 PM BARKER OPERATOR [facility] Blood BLOOD SPECIMEN / Unknown Venipuncture / Unknown 07/14/2020 10:44 AM BARKER OPERATOR 07/14/2020 11:07 AM BARKER OPERATOR Tiffanie Mcpherson [facility] LAB - CHEMISTRY ORDERABLES [address] [address], [place] [phone] * (ABNORMAL) HAPTOGLOBIN (07/14/2020 10:44 AM BARKER OPERATOR) Haptoglobin >500(H) 14 - 258 mg/dL 07/14/2020 12:13 PM BARKER OPERATOR [facility] Blood BLOOD SPECIMEN / Unknown Venipuncture / Unknown 07/14/2020 10:44 AM BARKER OPERATOR 07/14/2020 11:27 AM BARKER OPERATOR Tiffanie Seymour Patrick [facility] LAB - CHEMISTRY ORDERABLES Performing Organization Address [facility]/ZIP Co de Phone Number [address] [address], [facility] [phone] * (ABNORMAL) LDH BLOOD (06/16/2020 11:25 AM BARKER OPERATOR) Only the most recent of20 resultswithin the time period is included. LDH Total 345(H) 125 - 243 Units/L 06/16/2020 12:11 PM BARKER OPERATOR [facility] Blood BLOOD SPECIMEN / Unknown Venipuncture / Unknown 06/16/2020 11:25 AM BARKER OPERATOR 06/16/2020 11:42 AM BARKER OPERATOR Tiffanie Alvess [facility] LAB - CHEMISTRY ORDERABLES Performing Organization Address [facility] Co de Phone Number [address] [address], [facility] [phone] * LAB RESULTS ORDER (05/18/2020 1:52 PM CDT) Narrative 05/18/2020 1:52 PM CDT Ordered by an unspecified provider. Scanned Document LAB - THERAPEUTIC DR GOMEZ MONITORING ORDERABLES * CULTURE BLOOD (03/24/2020 1:24 PM CDT) Only the most recent of18 resultswithin the time period is included. Pathologist [facility] Culture No growth day 5 SPENCER 03/29/2020 4:30 PM CDT [facility] Blood PERIPHERAL BLOOD / Unknown Lab Venipuncture / Unknown 03/24/2020 1:24 PM CDT 03/24/2020 1:31 PM CDT Asim Ramirez [facility] LAB - MICROBIOLO GY ORDERABLES Performing Organization Address City/[facility]/ZIP Co de Phone Number [facility] [address] [place] [address], [place] [phone] * XR CHEST 1VW PORTABLE (03/20/2020 4:51 [...] abnormality. Report dictated by Adrián Vides MD (client services vice president). Dr. YARA Harris have personally reviewed and interpreted this examination/study. This report was electronically signed by YARA MADRIGAL on 03/22/2020 9:32 AM . Narrative 03/22/2020 9:32 [...] abnormality. Report dictated by Adrián Vides MD (client services vice president). Dr. YARA Harris have personally reviewed and interpreted this examination/study. This report was electronically signed by YARA MADRIGAL on 03/22/2020 9:32 AM . Keli Evie GROUN[employer] CREW SUPERVISOR-INTEL ANALYST DIAGNOSTIC IMAGIN G ORDERABLES * TRANSFUSE [facility] COVID-19 [facility] (03/10/2020 6:22 PM CDT) Kalpesh Robison MD NURSING - BLOOD PROD TRANSFUSION * BLOOD TYPE ABO+ RH PANEL (03/10/2020 1:25 PM CDT) ABO Rh A POS 03/10/2020 2:1 3 PM CDT [facility] Blood BLOOD SPECIMEN / Unknown Venipuncture / Unknown 03/10/2020 1:25 PM CDT 03/10/2020 1:36 PM CDT Kalpesh Robison MD LAB - BLOOD BANK ORD ERABLES Performing Organization Address City/[facility]/ZIP Co de Phone Number [facility] [address] [place] [phone], [place] * 1 Units (03/10/2020 1:00 PM CDT) Unit Description COVID 19 CP [facility] Unit ABO A [facility] Unit Rh POS [facility] Product Number [id number] [facility] B LOOD BANK LAB Unit Donor # [id number] [facility] Unit Status released [facility] BLOO D BANK LAB Product Code [id number] [facility] BLO OD [facility]ANK LAB Blood Type Barcode 6200 [facility] Expiration Date [id number] S BLOOD BANK LAB Unit Description Thawed CCP 5D [facility] Unit ABO A [facility] Unit Rh POS [facility] Product Number [id number] [facility] B LOOD BANK LAB Unit Donor # [id number] [facility]LO[facility] Unit Status transfused [facility] BLO OD BANK LAB Product Code [id number] [facility] BLO OD BANK LAB Blood Type Barcode 6200 [facility] B[facility] LAB Expiration Date [id number] S BLOOD BANK LAB Blood Bank BLOOD SPECIMEN / Unknown 03/10/2020 1:00 PM CDT Kalpesh Robison MD LAB - BLOOD BANK ORD ERABLES Performing Organization Address City/[facility]/ZIP Co de Phone Number [facility] [address] [place] [phone], [place] * CULTURE URINE (03/08/2020 11:19 PM CDT) Only the most recent of3 resultswithin the time period is included. Culture Urine No growth (<100 CFU/mL) SPENCER 03/10/2020 6:14 AM CDT [facility] Urine URINE SPECIMEN OBTAINED BY CLEAN CATCH PROCEDURE / Unknown Collection / Unknown 03/08/2020 11:19 PM CDT 03/08/2020 11:22 PM CDT Joe Dennison MD LAB - MICROBIOLOGY O RDERABLES [facility] [address] [place] [address], [facility] [phone] * (ABNORMAL) BASIC METABOLIC PANEL (CALCIUM TOTAL) (03/08/2020 9:40 PM CDT) BUN 19 7 - 26 mg/dL 03/08/2020 10:04 PM [facility] Creatinine 0.9 0.6 - 1.2 mg/dL 03/08/2020 10:04 PM [facility] Sodium 141 136 - 145 mmol/L 03/08/2020 10:04 PM [facility] Potassium 3.6 3.5 - 4.5 mmol/L 03/08/2020 10:04 PM [facility] Chloride 103 98 - 107 mmol/L 03/08/2020 10:04 PM [facility] CO2 24 22 [...] Martins MD LAB - CHEMISTRY [place] [address] [address], [facility] [phone] * (ABNORMAL) URINALYSIS REFLEX TO MICROSCOPIC NO CULTURE (03/08/2020 7:08 PM CDT) Only the most recent of3 resultswithin the time period is included. Color UA Yellow Straw, Yellow, Colorless 03/08/2020 7:49 PM [facility] Clarity UA Clear Clear, t Cloudy 03/08/2020 7:49 PM T [facility] Specific [place] UA 1.012 1.005 - 1.030 03/08/2020 7:49 [...] UA Negative Negative mg/dL 03/08/2020 7:49 PM T [facility] Blood UA 1+(A) Negative 03/08/2020 7:49 PM [facility] Nitrite UA Negative Negative 03/08/2020 7:49 PM [facility] Leukocyte Esterase Negative Negative 03/08/2020 7:49 PM T [facility] Urobilinogen UA Negative Negative mg/dL 03/08/2020 7:49 PM [facility] RBC UA 0-2 None Seen, 0-2, 3-5 /HPF 03/08/2020 7:49 PM [facility] WBC UA 0-5 None Seen, 0-5 /HPF 03/08/2020 7:49 PM [facility] Bacteria UA Trace None, Trace /HPF 03/08/2020 7:49 PM CDT [facility] Squamous Epithelial Cells UA None Seen None Seen, 0-2 /HPF 03/08/2020 7:49 PM CDT [facility] Mucus UA 1+ None, 1+ /LPF 03/08/2020 7:49 PM CDT [facility] Urine URINE SPECIMEN OBTAINED BY CLEAN CATCH PROCEDURE / Unknown Collection / Unknown 03/08/2020 7:08 PM CDT 03/08/2020 7:15 PM CDT Narrative [facility] - 03/08/2020 7:49 PM CDT Joe Dennison MD LAB - URINALYSIS ORD ERABLES [address] [address], [facility] [phone] * (ABNORMAL) VANCOMYCIN LEVEL TROUGH (03/08/2020 8:07 AM CDT) Only the most recent of6 resultswithin the time period is included. Vancomycin Trough 24.4(H) 10.0 - 20.0 mcg/mL 03/08/2020 8:53 AM CDT [facility] Blood BLOOD SPECIMEN / Unknown Venipuncture / Unknown 03/08/2020 8:07 AM CDT 03/08/2020 8:20 AM CDT Joe Dennison MD LAB - CHEMISTRY ORDE CHELA [address] [address], [facility] [phone] * XR ABDOMEN KUB PORTABLE (03/07/2020 12:35 [...] both lungs. Dictated by Logan Shi MD (client services vice president). Dr. BOGDAN Harris have personally reviewed and interpreted this examination/study. This report was electronically signed by BOGDAN RUBIO on 03/08/2020 10:39 AM . Narrative 03/08/2020 10:39 [...] both lungs. Dictated by Logan Shi MD (client services vice president). Dr. BOGDAN Harris have [...] is recommended. Dictated by Logan Shi MD (client services vice president). Dr. BOGDAN Harris have personally reviewed and interpreted this examination/study. This report was electronically signed by BOGDAN RUBIO on 03/08/2020 10:38 AM . Narrative 03/08/2020 10:38 [...] is recommended. Dictated by Logan Shi MD (client services vice president). I, Dr. BOGDAN RUBIO have personally reviewed and interpreted this examination/study. This report was electronically signed by BOGDAN RUBIO on 03/08/2020 10:38AM . Joe Dennison MD DIAGNOSTIC IMAGING O RDERABLES * (ABNORMAL) BLOOD GASES ARTERIAL (03/06/2020 9:[address] [facility]) Only the most recent of2 resultswithin the time period is included. pH Arterial 7.42 7.35 - 7.45 03/06/2020 9:28 PM [facility] pCO2 Arterial 41 35 - 45 mmHg 03/06/2020 9:28 PM [facility] pO2 Arterial 144(H) 77 - 101 mmHg 03/06/2020 9:28 PM [facility] HCO3 Arterial 26.1(H) 22.0 - 26.0 mmol/L 03/06/2020 9:28 PM [facility] TCO2 Arterial 27.3 25.0 - 29.0 mmol/L 03/06/2020 9:28 PM [facility] Base Excess Arterial 1.5 -2.0 - 2.0 mmol/L 03/06/2020 9:28 PM [facility] Hemoglobin Arterial 8.7(L) 13.5 - 17.5 g/dL 03/06/2020 9:28 PM [facility] Oxyhemoglobin Arterial 97.3 95.0 - 100.0 % 03/06/2020 9:28 PM [facility] Carboxyhemoglobin 0.3 0.0 - 3.0 % 03/06/2020 9:28 PM [facility] Methemoglobin 0.3 0.0 - 2.0 % 03/06/2020 9:28 PM [facility] FI O2 Arterial 60.0 % 03/06/2020 9:28 PM [facility] Blood, arterial ARTERIAL BLOOD SPECIMEN / Unknown Arterial Puncture / Unknown 03/06/2020 9:21 PM CDT 03/06/2020 9:25 PM CDT Bertin Rush DO LAB - BLOOD GASES OR DERABLES Performing Organization Address [facility]/State/ZIP Co de Phone Number [place] [phone], [facility] [phone] * PTT [facility] (03/06/2020 6:16 PM CDT) Only the most recent of3 resultswithin the time period is included. APTT 26.0 23.0 - 38.4 Seconds 03/06/2020 6:43 PM CDT [facility] Comment:Suggested therapeuti c range for full dose I.V. unfractionated heparin therapy for venous thromboembolism is 71 to 109 seconds. Blood BLOOD SPECIMEN / Unknown Venipuncture / Unknown 03/06/2020 6:16 PM CDT 03/06/2020 6:30 PM CDT Joe Dennison MD LAB - COAGULATION OR DERABLES Performing Organization Address [facility]/ZIP Co de Phone Number [place] [address], [facility] [phone] * PT-INR [facility] (03/06/2020 6:16 PM CDT) Only the most recent of4 resultswithin the time period is included. PT 14.7 12.1 - 14.8 Seconds 03/06/2020 6:42 PM CDT [facility] INR 1.2 See Comment 03/06/2020 6:42 PM CDT [facility] Comment:The suggested therap eutic range for standard coumadin (warfarin) therapy is an INR of 2.0-3.0. For high-risk patients (Mechanical Mitral Valve Prosthesis, etc.), the suggested prophylactic therapeutic range is an INR of 2.5-3.5. Blood BLOOD SPECIMEN / Unknown Venipuncture / Unknown 03/06/2020 6:16 PM CDT 03/06/2020 6:30 PM CDT Joe Dennison MD LAB - COAGULATION OR DERABLES [facility] [address] [place] [phone], [facility] [phone] * PATHOLOGY TISSUE (03/06/2020 3:46 PM CDT) Only the most recent of2 resultswithin the time period is included. Case Report Surgical Pathology Report Case: [id number] Authorizing Provider: Elkin Rosenbaum MD Collected: 03/06/2020 03:46 PM Ordering Location: [facility] Received: 03/07/2020 08:15 AM Pathologist: Alecia Abel MD Specimen: Lung, Right Middle Lobe, transbronchial lung biopsy RML 03/09/2020 3:06 PM CDT [facility] Final Diagnosis Lung, right middle lobe, transbronchial biopsy: - Reactive alveolar parenchyma with mild chronic inflammation 03/09/2020 3:06 PM CDT [facility] Microscopic Description and Comment Microscopic [...] are negative for micro-organisms. 03/09/2020 3:06 PM CDT [facility] Clinical History The patient is [...] Procedure: Transbronchial lung biopsy 03/09/2020 3:06 PM CDT [facility] Gross Description The requisition and specimen(s) are labeled with the patient's name, Marcello Guillen. Received in formalin, specimen A , are 3 castillo-white tissue fragment 0.1 cm in greatest dimension, with an aggregate measurement of 0.6 x 0.1 x 0.1 cm. Specimen is submitted in toto in cassette A1. KK 03/09/2020 3:06 PM CDT [facility] Disclaimer The performance characteristics of all immunohistochemical and indirect immunofluorescence stains (if any) cited in this report were determined by the Histopathology Laboratory of [facility]. Some of these tests were developed [...] attending (teaching) pathologist. 03/09/2020 3:06 PM CDT [facility] Embedded Images 03/09/2020 3:06 PM CDT [facility] Biopsy, Excision (Lung, Right Middle Lobe) 03/06/2020 3:46 PM CDT 03/07/2020 8:15 AM CDT Comment:Pre-op diagnosis: Abnormal CXR [R93.89] Elkin Rosenbaum MD LAB - PATHOLOGY/CYTO LOGY ORDERABLES Performing Organization Address City/State/[facility] Co de Phone Number [facility] [address] [phone] * FLOW CYTOMETRY BODY FLUID (03/06/2020 3:41 PM CDT) Only the most recent of2 resultswithin the time period is included. Case Report Flow Cytometry Case: [id number] Authorizing Provider: Elkin Rosenbaum MD Collected: 03/06/2020 03:41 PM Ordering Location: [facility] Received: 03/06/2020 04:11 PM Pathologist: Margaret Hooker Mai, DO Specimen: Body Fluid 03/07/2020 10:38 AM [facility] Final Diagnosis Body fluid, RML, flow cytometric immunophenotypic analysis: - Insufficient hematopoietic cells for analysis. - See interpretation. 03/07/2020 10:38 AM [facility] Flow Cytometry Interpretation Preliminary characterization of the body fluid, RML, specimen demonstrates too few hematopoietic cells for flow cytometric analysis. A cytospin prepared from the flow cytometry specimen is reviewed for type disk quality control supervisor purposes. Flow cytometry is not performed. 03/07/2020 10:38 AM [facility] Flow Cytometry Results Too few hematopoetic cells for flow cytometric analysis. 03/07/2020 10:38 AM [facility] Client Specimen ID # [id number] 03/07/2020 10:38 AM [facility] Reason for test Fever, unspecified fever cause 03/07/2020 10:38 AM [facility] Disclaimer Test performed at [facility], [address] [place] [address], [id number]. *The established laboratory minimum viability is 70%. [...] high complexity clinical testing. 03/07/2020 10:38 AM [facility] Embedded Images 0 10:38 AM [facility] Fluid BODY FLUID SPECIMEN / Unknown Collection / Unknown 03/06/2020 3:41 PM CDT 03/06/2020 4:11 PM CDT Comment:RML Elkin Rosenbaum MD LAB - PATHOLOGY/CYTO LOGY ORDERABLES [facility] [address] [place] [address], [place] [phone] * (ABNORMAL) CELL COUNT W DIFFERENTIAL FLUID (03/06/2020 3:41 PM CDT) Color Fluid [place](A) Colorles s, Straw 03/06/2020 5:01 PM CDT [facility] Clarity Fluid Clear Clear 03/06/2020 5:01 PM CDT [facility] Volume Fluid 5.0 mL 03/06/2020 5:01 PM CDT [facility] WBC Calculation Fluid 48 /uL 03/06/2020 5:01 PM CDT [facility] RBC Calculation 2,010 /uL 0 5:01 PM CDT [facility] Differential Manual Differential to follow. 03/06/2020 5:01 PM CDT [facility] Fluid BRONCHIOLOALVEOLAR LAVAGE / Unknown Collection / Unknown 03/06/2020 3:41 PM CDT 03/06/2020 3:53 PM CDT Narrative [facility] - 03/06/2020 5:01 PM CDT No reference ranges established for body fluid cell counts. The reference ranges provided are derived from published literature. The test results must be integrated into the clinical context for interpretation. Elkin Rosenbaum MD LAB - BODY FLUID ORD ERABLES [address] [phone] [phone] * CYTOLOGY NON-SHIP CONSTRUCTION TEACHER PANEL (STL) (03/06/2020 3:41 PM CDT) Pathologist Nae Case Report Medical Cytology Report Case: [id number] Authorizing Provider: Elkin Rosenbaum MD Collected: 03/06/2020 03:41 PM Ordering Location: [facility] Received: 03/07/2020 07:01 AM Pathologist: Nick Gutierrez MD Specimen: Bronch Alveolar Lav, RML 03/08/2020 2:56 PM CDT [facility] Specimen Adequacy Adequate cellularity for evaluation. 03/08/2020 2:56 PM CDT [facility] Final Diagnosis Bronchial alveolar lavage, cytology: - Negative for malignancy - Macrophages, bronchial cells, and mucin - GMS stain is negative for fungal elements 03/08/2020 2:56 PM CDT [facility] Clinical History Fever, unspecified fever cause 03/08/2020 2:56 PM CDT [facility] Gross Description 1 pap stained cytospin slide and 1 cell block from 30cc collection fluid. 03/08/2020 2:56 PM CDT [facility] Microscopic Description Performed. 03/08/2020 2:56 PM CDT [facility] Disclaimer The performance characteristics of all immunohistochemical and indirect immunofluorescence stains (if any) cited in this report were determined by the [facility] of [facility]. Some of these tests rely on the use of analyte-specific reagents and are subject to specific labeling requirements by the [place] Food and Drug Administration. Such tests were developed by the Histology Laboratory of [facility] and have not been cleared or [...] attending (teaching) pathologist. 03/08/2020 2:56 PM CDT [facility] Embedded Images 03/08/2020 2:56 PM CDT [facility] Pathology/Cytol ogy BRONCHIOLOALVEOLAR LAVAGE / Unknown Collection / Unknown 03/06/2020 3:41 PM CDT 03/07/2020 7:01 AM CDT Elkin Rosenbaum MD LAB - PATHOLOGY/CYTO LOGY ORDERABLES [facility] [address] [phone] * DIFFERENTIAL MANUAL FLUID (03/06/2020 3:41 PM CDT) Only the most recent of2 resultswithin the time period is included. Band Relative % Fluid 3 % 03/06/2020 5:36 PM CDT [facility] Segs % Fluid 64 % 03/06/2020 5:36 PM CDT [facility] Lymphocytes % Fluid 11 % 03/06/2020 5:36 PM CDT [facility] Monocytes % Fluid 16 % 03/06/2020 5:36 PM CDT [facility] Macrophages % Fluid 3 % 03/06/2020 5:36 PM CDT [facility] Atypical Lymphs % Fluid 3 % 03/06/2020 5:36 PM CDT [facility] Fluid BRONCHIOLOALVEOLAR LAVAGE / Unknown Collection / Unknown 03/06/2020 3:41 PM CDT 03/06/2020 3:53 PM CDT Elkin Rosenbaum MD LAB - BODY FLUID ORD ERABLES [facility] [address] [phone] [phone] * LAB MISC TEST (03/06/2020 3:41 PM CDT) Test Name Coronavirus (COVID-19) SARS-CoV-2 PCR 05/02/2020 10:42 AM CDT [facility] Test Result See Scanned Report 05/02/2020 10:42 AM CDT [facility] Blood MISCELLANEOUS SAMPLES / Unknown Venipuncture / Unknown 03/06/2020 3:41 PM CDT 03/07/2020 8:23 AM CDT Joce Damian DO LAB SEND OUT [address] [place] [address] * CULTURE FUNGUS OTHER+FUNGUS SMEAR (03/06/2020 3:37 PM CDT) Culture No fungus isolated SPENCER 04/03/2020 12:08 PM CDT [facility] Fungus Stain No yeast or hyphae seen 04/03/2020 12:08 PM CDT [facility] Fungus Stain No Pneumocystis jirovecii 04/03/2020 12:08 PM CDT [facility] Microbiology BRONCHIOLOALVEOLAR LAVAGE / Unknown Collection / Unknown 03/06/2020 3:37 PM CDT 03/06/2020 4:10 PM CDT Elkin Rosenbaum MD LAB - MICROBIOLOGY O LEONARD Performing Organization Address [facility] Co de Phone Number [facility] [address] [place], [place] [address] [phone] * FUNGAL PLUS PCR PROFILE II (03/06/2020 3:36 PM CDT) See Scanned Document See Scanned Report 03/08/2020 9:45 AM CDT [facility] REF LAB NON INTERF Microbiology BRONCHIOLOALVEOLAR LAVAGE / Unknown Collection / Unknown 03/06/2020 3:36 PM CDT 03/06/2020 4:08 PM CDT Elkin Rosenbaum MD LAB - MICROBIOLOGY O LEONARD Performing Organization Address [facility] de Phone Number [facility] REF LAB NON INTERF [address] [place] [phone] * ASPERGILLUS GALACTOMANNAN BAL/BLOOD (03/06/2020 3:36 PM CDT) See Scanned Document See Scanned Report 03/08/2020 9:47 AM CDT [facility] REF LAB NON INTERF Microbiology BRONCHIOLOALVEOLAR LAVAGE / Unknown Collection / Unknown 03/06/2020 3:36 PM CDT 03/06/2020 4:08 PM CDT Elkin Rosenbaum MD LAB - MICROBIOLOGY O LEONARD Performing Organization Address [facility] de Phone Number [facility] REF LAB NON INTERF [address] [place] [phone], [place] * HHV-6 QUANTITATIVE PCR (03/06/2020 3:36 PM CDT) See Scanned Document SEE SCANNED REPORT 03/09/2020 7:54 AM CDT [facility] REF LAB NON INTERF Microbiology BRONCHIOLOALVEOLAR LAVAGE / Unknown Collection / Unknown 03/06/2020 3:36 PM CDT 03/06/2020 4:06 PM CDT Elkin Rosenbaum MD LAB - MICROBIOLOGY O RDERABLES [facility] REF LAB NON INTERF [address] [place] [address], [facility] * RESPIRATORY PATHOGEN PANEL BY PCR (03/06/2020 3:36 PM CDT) Only the most recent of2 resultswithin the time period is included. Adenovirus PCR Not detected Not detected, Invalid, Indeterminate 03/06/2020 11:[address] [facility] Coronavirus PCR Not detected Not detected, Invalid, Indeterminate 03/06/2020 11:[address] [facility] Human Metapneumovirus PCR Not detected Not detected, Invalid, Indeterminate 03/06/2020 11:[address] [facility] Human Rhinovirus/Entero virus PCR Not detected Not detected, Invalid, Indeterminate 03/06/2020 11:[address] [facility] Influenza A PCR Not detected Not detected, Equivocal, Invalid, Indeterminate 03/06/2020 11:[address] [facility] Influenza B PCR Not detected Not detected, Invalid, Indeterminate 03/06/2020 11:[address] [facility] Parainfluenza Virus 1 PCR Not detected Not detected, Invalid, Indeterminate 03/06/2020 11:[address] [facility] Parainfluenza Virus 2 PCR Not detected Not detected, Invalid, Indeterminate 03/06/2020 11:[address] [facility] Parainfluenza Virus 3 PCR Not detected Not detected, Invalid, Indeterminate 03/06/2020 11:[address] [facility] Parainfluenza Virus 4 PCR Not detected Not detected, Invalid, Indeterminate 03/06/2020 11:[address] [facility] Respiratory Syncytial Virus PCR Not detected Not detected, Invalid, Indeterminate 03/06/2020 11:[address] [facility] Bordetella pertussis PCR Not detected Not detected, Invalid 03/06/2020 11:[address] [facility] Chlamydia pneumoniae PCR Not detected Not detected, Invalid, Indeterminate 03/06/2020 11:[address] [facility] Mycoplasma pneumoniae PCR Not detected Not detected, Invalid, Indeterminate 03/06/2020 11:[address] [facility] Microbiology BRONCHIOLOALVEOLAR LAVAGE / Unknown Collection / Unknown 03/06/2020 3:36 PM CDT 03/06/2020 4:10 PM CDT Narrative [facility] - 03/06/2020 11:19 PM CDT This test is able to detect the following human coronaviruses: HKU1, NL63, 229E, and OC43. It will NOT detect 2019 Novel Coronavirus (2019-nCoV). If 2019-nCoV is suspected contact Infection Prevention for isolation and testing guidance. Elkin Rosenbaum MD LAB - MICROBIOLOGY O LEONARD Performing Organization Address [facility] Co de Phone Number [facility] [address] [place] [address], [facility] [phone] * CULTURE BRONCHOALVEOLAR LAVAGE QNT+GRAM STAIN (03/06/2020 3:36 PM CDT) Culture No growth SPENCER 03/08/2020 8:06 AM CDT [facility] Gram Stain Light Polymorphonuclear cells 03/08/2020 8:06 AM CDT [facility] Gram Stain No organisms seen 020 8:06 AM CDT [facility] Microbiology BRONCHIOLOALVEOLAR LAVAGE / Unknown Collection / Unknown 03/06/2020 3:36 PM CDT 03/06/2020 4:10 PM CDT Elkin Rosenbaum MD LAB - MICROBIOLOGY O LEONARD Performing Organization Address [facility] de Phone Number [facility] [address] [place] [address], [facility] [phone] * ADENOVIRUS PCR QUANTITATIVE (VIRACOR) (03/06/2020 3:36 PM CDT) See Scanned Document SEE SCANNED REPORT 03/09/2020 7:59 AM CDT [facility] REF LAB NON INTERF Microbiology BRONCHIOLOALVEOLAR LAVAGE / Unknown Collection / Unknown 03/06/2020 3:36 PM CDT 03/06/2020 4:06 PM CDT Elkin Rosenbaum MD LAB - MICROBIOLOGY O LEONARD Performing Organization Address [facility] de Phone Number [facility] REF LAB NON INTERF [address] [place] [phone], [place] * CYTOMEGALOVIRUS DNA RT-PCR QUANT (03/06/2020 3:36 PM CDT) See Scanned Document SEE SCANNED REPORT 03/09/2020 8:01 AM CDT [facility] REF LAB NON INTERF Microbiology BRONCHIOLOALVEOLAR LAVAGE / Unknown Collection / Unknown 03/06/2020 3:36 PM CDT 03/06/2020 4:06 PM CDT Elkin Rosenbaum MD LAB - MICROBIOLOGY O LEONARD Performing Organization Address [facility] de Phone Number [facility] REF LAB NON INTERF [address] [place] [phone], [place] * CULTURE AFB+SMEAR (03/06/2020 3:36 PM CDT) Culture No acid-fast bacillus isolated 04/17/2020 10:13 AM CDT [facility] AFB Smear No acid-fast bacilli seen 04/17/2020 10:13 AM CDT [facility] Microbiology BRONCHIOLOALVEOLAR LAVAGE / Unknown Collection / Unknown 03/06/2020 3:36 PM CDT 03/06/2020 4:10 PM CDT Elkin Rosenbaum MD LAB - MICROBIOLOGY O LEONARD Performing Organization Address [facility] de Phone Number [facility] [address] [phone] * CULTURE BRONCHIAL BRUSHINGS QUANT (03/06/2020 2:45 PM CDT) Culture No growth SPENCER 03/08/2020 8:06 AM CDT [facility] Microbiology BRONCHIAL BRUSHINGS SPECIMEN / Unknown Collection / Unknown 03/06/2020 2:45 PM CDT 03/06/2020 4:10 PM CDT Elkin Rosenbaum MD LAB - MICROBIOLOGY O LEONARD Performing Organization Address [facility]/ZIP Co de Phone Number [facility] [address] [place] [address], [facility] [phone] * ETT LINE PERFORMABLE (03/06/2020 1:59 PM CDT) Narrative Benjamin Haynes Anes Asst - 03/06/2020 1:59 PM CDT Benjamin Haynes Anes Asst 03/06/2020 2:00 PM Endotracheal Tube Placement: Intubation Event Date/Time: 03/06/2020 1:33 PM Procedure: intubation (56547). Procedure Section: Sedation: under general anesthesia. Indications [...] (03/06/2020 12:40 PM CDT) Report Endoscopy POC [facility] Advanced Diagnostic Bronchoscopy and Interventional Pulmonary Service __ _ Patient Name: Marcello Guillen Procedure Date: 03/06/2020 12:40 PM Date of : 1970 Attending MD: Elkin Rosenbaum MD Age: 49 Room: Bronch Suite __ _ Providers: Elkin Rosenbaum MD, Krupa Raines MD (Fellow), Jorge Luis Ham MD (Fellow), Annabella Hargrove SUPERVISOR SPECIAL SERVICES Referring MD: Procedure: Bronchoscopy Indications: Diffuse lung infiltrate Medicines: General Anesthesia Comorbidities S/p BMT __ _ Description of Procedure: After obtaining informed consent, the [id number] bronchoscope was introduced through the mouth, via the endotracheal tube and advanced to the tracheobronchial tree. BAL from the right middle lobe was performed with 2 aliquots of 50mL of normal saline. Return of over 40mL of clear fluid was noted. Next cytology brush was used to collect specimens from the right middle lobe. Lastly, transbronchial biopsies were performed. The procedure was accomplished without difficulty. The patient tolerated the procedure well. Findings: The endotracheal tube is in good position. The visualized portion of the trachea is of normal caliber. The olga is sharp. The tracheobronchial tree was examined to at least the first subsegmental level. Bronchial mucosa and anatomy are normal; there are no endobronchial lesions, and no secretions. BAL from the right middle lobe yielded excellent return of clear fluid. Brushings from the right middle lobe lateral subsegment were collected. Next, 3 transbronchial biopsies were taken from the lateral subsegment of the right middle lobe. There was minimal bleeding after biopsies that resolved spontaneously. The airways were inspected and no active bleeding or obstructions was noted. Estimated Blood Loss: Estimated blood loss: none. Complications: No immediate complications __ _ Impression: - The airway examination was normal. - BAL from the RML - Cytobrush from RML - Transbronchial biopsies from RML placed in formalin Recommendation: - Await BAL, biopsy and brushing results. Patient will remain intubated and be admitted to ICU due to high PEEP and oxygen requirements Attending Participation: I was present and participated during the entire procedure, including non-alfonso portions. Elkin Rosenbaum MD 03/08/2020 3:36:47 PM Jorge Luis Ham MD, Krupa Raines MD, Note Initiated On: 03/06/2020 12:40 PM Number of Addenda: 0 [facility] [address] 03/06/2020 12:4 0 PM CDT Elkin Rosenbaum MD RESPIRATORY THERAPY ORDERABLES Performing Organization Address [facility] Co de Phone Number [facility] * LACTIC ACID BLOOD (03/04/2020 5:51 AM CDT) Lactic Acid-Stat 1.0 0.5 - 2.2 mmol/L 03/04/2020 6:17 AM CDT [facility] Blood BLOOD SPECIMEN / Unknown Lab Venipuncture / Unknown 03/04/2020 5:51 AM CDT 03/04/2020 5:59 AM CDT Keli Case GROUNDS CREW SUPERVISOR-INTEL ANALYST LAB - CHEMISTRY O RDERABLES Performing Organization Address [facility] Co de Phone Number [facility] [address] [place] [phone] [phone] * LEGIONELLA ANTIGEN URINE (03/03/2020 6:04 PM CDT) Legionella Antigen Urine Negative Negative 03/04/2020 8:59 AM CDT [facility] Urine URINE / Unknown Collection / Unknown 03/03/2020 6:04 PM CDT 03/03/2020 6:36 PM CDT Narrative [facility] - 03/04/2020 8:59 AM CDT This assay detects Legionella pneumophila serogroup one (1) antigen. A negative test result does not rule out the possibility of Legionella infection due to other serogroups or species of Legionella. A positive result may indicate a recent or remote infection with serogroup 1. Joce Damian DO LAB - MICROBIOLOGY ORDERABLES [facility] [address] [place] [address], [facility] [phone] * ECHO LIMITED OR FOLLOWUP (03/03/2020 5:49 PM CDT) Anatomical Region Laterality Modality Chest Echo 03/03/2020 5:32 PM CDT Narrative Procedure Note Tiffanie Ruiz MD - 03/06/2020 Rafaela Sood APRN-INTEL ANALYST ECHOCARDIOGRAP HY RADIANT * VAS BILATERAL VENOUS DUPLEX UE (03/03/2020 3:39 PM CDT) Anatomical Region Laterality Modality Upper Extremity Intravascular Ul trasound 03/03/2020 3:21 PM CDT Narrative Procedure Note Alonso Carreon MD - 03/06/2020 Rafaela Sood APRN-INTEL ANALYST VASCULAR LAB O RDERABLES * VAS BILATERAL VENOUS DUPLEX LE (03/03/2020 3:38 PM CDT) Anatomical Region Laterality Modality Lower Extremity Intravascular Ul trasound 03/03/2020 3:09 PM CDT Narrative Procedure Note Alonso Carreon MD - 03/06/2020 Rafaela Sood PRASANNA VASCULAR LAB O RDERABLES * FLOW CYTOMETRY BONE MARROW (03/03/2020 1:45 PM CDT) Only the most recent of4 resultswithin the time period is included. Case Report Flow Cytometry Case: [id number] Authorizing Provider: Keli Case APRN-CNP Collected: 03/03/2020 01:45 PM Ordering Location: [address] Received: 03/03/2020 01:56 PM Pathologist: Margaret Hooker Mai, DO Specimen: Bone Marrow 03/03/2020 6:41 PM CDT [facility] Final Diagnosis Bone marrow, flow cytometric immunophenotypic analysis: - No evidence of non-Hodgkin lymphoma or high-grade myeloid neoplasm. - See interpretation. 03/03/2020 6:41 PM CDT [facility] Flow Cytometry Interpretation [...] the flow cytometry specimen is reviewed for type disk quality control supervisor purposes. The bone marrow aspirate specimen shows no evidence of involvement by non-Hodgkin lymphoma or a high-grade myeloid neoplasm. Correlation with clinical findings, the concurrent bone marrow core biopsy ([id number]), and relevant cytogenetic/molecu lar studies is required. 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 A-1 Flow CD3 A-3 Flow CD10 A-5 Flow CD20 A-6 Flow CD23 A-2 Flow CD5 A-4 Flow CD19 A-7 Flow CD34 A-8 Flow CD45 A-9 Austwell+CD19+ A-10 Lambda+CD19+ 03/03/2020 6:41 PM CDT [facility] PATHOLOGY LAB Disclaimer Test performed at [facility], [address] [place] [address], [address]. *The established laboratory minimum viability is 70%. [...] complexity clinical testing. 03/03/2020 6:41 PM CDT [facility] PATHOLOGY LAB Embedded Images 0 6:41 PM CDT [facility]OLOGY LAB Pathology/Cytolo gy BONE MARROW SPECIMEN / Unknown Collection / Unknown 03/03/2020 1:45 PM CDT 03/03/2020 1:56 PM CDT Keli MIMS LAB - PATHOLOGY/C YTOLOGY ORDERABLES [facility] PATHOLOGY LAB [address] [place] [address]. [address] [phone] * BONE MARROW BIOPSY (STL) (03/03/2020 1:45 PM CDT) Only the most recent of4 resultswithin the time period is included. Case Report Bone Marrow Patholog y Report Case: [id number] Authorizing Provider: Keli Case APRN-CNP Collected: 03/03/2020 01:45 PM Ordering Location: [address] Received: 03/03/2020 01:56 PM Pathologist: Margaret Hooker Mai, DO Specimens: A) - Bone Marrow Clot B) - Bone Marrow Core C) - Bone Marrow Aspirate D) - Blood Peripheral 03/14/2020 8:35 AM [facility] PATHOLOGY LAB Final Diagnosis Bone marrow, aspirate, clot section, and core biopsy: - Normocellular marrow with maturing trilineage hematopoiesis. - No morphologic evidence of residual/recurrent non-Hodgkin lymphoma. - See description. Peripheral blood smear: - Normal white blood cell count with absolute neutrophilia. - Normochromic normocytic anemia. - See description. 03/14/2020 8:35 AM [facility] PATHOLOGY LAB Comment Overall, the bone marrow specimen is normocellular for age with maturing trilineage hematopoiesis and no morphologic evidence of lymphoma or a high-grade myeloid neoplasm. Concurrent bone marrow flow cytometry ([id number]) demonstrates no evidence of non-Hodgkin lymphoma or a high-grade myeloid neoplasm. Correlation with clinical findings and relevant cytogenetic/molecular testing is required. VH/TF 03/14/2020 8:35 AM [facility] PATHOLOGY LAB Peripheral Smear Description Manual Differential Count (100 cells): 87% neutrophils, 6% lymphocytes, 7% monocytes. 14 nRBCs / 100 WBCs. Leukocyte number: increased. Granulocyte morphology: absolute neutrophilia. Lymphocyte morphology: normal. Erythrocyte number: decreased. Erythrocyte morphology: normochromic normocytic. Anisopoikilocytosis: mild. Polychromasia: mild. Platelet number: normal, with some platelet clumping. Platelet morphology: normal. 03/14/2020 8:35 AM [facility] PATHOLOGY LAB Bone Marrow Aspirate Differential [...] no ringed sideroblasts seen. 03/14/2020 8:35 AM [facility] PATHOLOGY LAB Bone Marrow Core Biopsy [...] similar to core biopsy. 03/14/2020 8:35 AM [facility] PATHOLOGY LAB Flow Cytometry Summary Concurrent flow cytometric analysis ([id number]) Shows no evidence of non-Hodgkin's lymphoma or high-grade myeloid neoplasm. 03/14/2020 8:35 AM [facility] PATHOLOGY LAB Clinical History The patient is a 49-year-old man who is day 137 status post autologous peripheral blood stem cell transplant. 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 He underwent bone marrow biospy as part of day 100 testing which was delayed until now due to positive COVID results. Concurrent flow cytometry ([id number]) is negative for non-Hodgkin lymphoma or high-grade myeloid neoplasm. 03/14/2020 8:35 AM [facility] PATHOLOGY LAB Gross Description The [...] of rapidcal immuno. KK 03/14/2020 8:35 AM [facility] PATHOLOGY LAB Disclaimer The performance characteristics of all immunohistochemical and indirect immunofluorescence stains (if any) cited in this report were determined by the [facility] of [facility]. Some of these tests were developed [...] attending (teaching) pathologist. 03/14/2020 8:35 AM CDT [facility] PATHOLOGY LAB Addendum 1 Properly controlled special stains were performed on the bone marrow core. GMS staining highlights debris and weak blush staining of some erythrocytes but no distinct fungal elements. AFB staining shows no acid-fast organisms. The diagnosis is unchanged. 03/14/2020 8:35 AM CDT [facility] PATHOLOGY LAB Addendum electronically signed by Margaret Hooker Mai, on 03/14/2020 at 8:35 AM Embedded Images 03/14/2020 8:35 AM CDT [facility] PATHOLOGY LAB Pathology/Cytology PERIPHERAL BLOOD / [...] CDT 03/03/2020 3:00 PM CDT Keli Evie GROUN[employer]W SUPERVISOR-INTEL ANALYST LAB - PATHOLOGY/C YTOLOGY ORDERABLES [facility] PATHOLOGY LAB [address] [place] [address], [facility] [phone] * FISH LYMPHOMA (AGGRESSIVE) PANEL (03/03/2020 1:45 PM CDT) Only the most recent of2 resultswithin the time period is included. FISH Lymphoma (Aggressive) Panel See Note Normal 03/16/2020 9:[address] [facility] ([facility]) Comment: Specimen Received Specimen Type: Bone marrow Reason for Referral: Aggressive lymphoma panel Test Performed: FISH ALYMPH NORMAL FISH RESULTS 3q27 (BCL6): rearrangement not detected 8q24 (MYC): rearrangement not detected t(14;18)(q32;q21) (IGH;BCL2): rearrangement not detected DIAGNOSTIC IMPRESSION: Fluorescence in situ hybridization (FISH) analysis was performed with the BCL6, MYC, IGH, and BCL2 probes (Sonopia). 200 interphase cells were scored for each probe combination. This analysis showed normal results with no evidence of t(14;18)(q32;q21) (IGH/BCL2 translocation) or other rearrangements involving BCL6 or MYC. ISCN: nuc sergei(BCL6,MYC,IGH,BCL2)x2[200] This result has been reviewed and approved by Jin Meza, PhD, [facility] A portion of this analysis was performed at the following location(s): [facility], [address] [place] [address], Customer Service Receptionist: Jin Meza, PhD INTERPRETIVE INFORMATION: Lymphoma (Aggressive) Panel by FISH This panel is for the identification of double hit lymphoma and triple hit lymphoma, both of which show morphologic features intermediate between diffuse large B-Cell lymphoma and Burkitt Lymphoma. Both are agressive lymphomas and are characterized by a poor survival rate. Test developed and characteristics determined by [facility]. See Compliance Statement A: [employer]/ EER Lymphoma (Aggressive) Pnl FISH See Note 03/16/2020 9:[address] [facility] ([facility]) Comment: Access [employer] Enhanced Report using either link below: -Direct access: [email or web address] -Enter Username, Password: [email or web address] Username: [email or web address] Password: [email or web address] Performed By: [facility] [address] [place] [address] Customer Service Receptionist: Toribio Elizondo MD, MS Other BONE MARROW SPECIMEN / Unknown Collection / Unknown 03/03/2020 1:45 PM CDT 03/03/2020 1:56 PM CDT Keli Evie GROUNDS [employer]W SUPERVISOR-INTEL ANALYST LAB - PATHOLOGY/C YTOLOGY ORDERABLES [facility] ([facility]) [address] [place] [address], [facility] * CHROMOSOME ANALYSIS BONE MARROW PANEL (03/03/2020 1:45 PM CDT) Only the most recent of2 resultswithin the time period is included. Chromosome Analysis Bone Marrow See Note Normal 03/14/2020 1:20 PM CDT [facility] ([facility]) Comment: Specimen received Specimen type: Bone Marrow Reason for referral: DLBCL Test performed: Chromosome Analysis Laboratory analysis Number of cells counted: 20 Number of cells analyzed: 20 Number of cells karyotyped: 15 ISCN Band level: 400 Banding Method: G-Banding Chromosome Results: 46,XY[20] Diagnostic Impression: Evaluation of metaphase cells from this patient revealed a normal male chromosome complement. There were no abnormal clones detected within the limits of the technology utilized in this study. NOTE: FISH ALYMP is pending on this sample and will be reported under [facility] accession #[id number]. This result has been reviewed and approved by Kraig Martinez MD, PhD, [facility] A portion of this analysis was performed at the following location(s): [facility], [address] [place] [address], [address], [place], [address], Customer Service Receptionist: Vicki Montesinos, PhD INTERPRETIVE INFORMATION: Chromosome Analysis, Bone Marrow Test developed and characteristics determined by [facility]. See Compliance Statement B: [employer]/CS EER Chromosome Analysis Bone Marrow See Note 03/14/2020 1:20 PM CDT [facility] ([facility]) Comment: Access [employer] Enhanced Report using either link below: -Direct access: [email or web address] -Enter Username, Password: [email or web address] Username: [email or web address] Password: [email or web address] Performed By: [facility] [address] [place] [address] Customer Service Receptionist: Toribio Elizondo MD, MS Bone marrow BONE MARROW SPECIMEN / Unknown 03/03/2020 1:45 PM CDT 03/03/2020 1:56 PM CDT Keli Case APRN-INTEL ANALYST LAB - PATHOLOGY/C YTOLOGY ORDERABLES Performing Organization Address City/[facility]/ZIP Co de Phone Number [facility] ([facility]) [address] [place] [address], [facility] * (ABNORMAL) FIBRINOGEN ACTIVITY (03/03/2020 12:47 PM CDT) Only the most recent of2 resultswithin the time period is included. Fibrinogen Clauss 584(H) 200 - 400 mg/dL 03/03/2020 1:18 PM CDT [facility] Blood BLOOD SPECIMEN / Unknown Lab Venipuncture / Unknown 03/03/2020 12:47 PM CDT 03/03/2020 1:06 PM CDT Rafaela Sood GR[employer]W SUPERVISOR-INTEL ANALYST LAB - COAGULAT ION ORDERABLES [address] [phone] * FTII-U-DYLVOR FUNGITELL BAL/BLOOD (03/03/2020 12:14 AM CDT) See Scanned Document See Scanned Report 03/15/2020 9:01 PM CDT [facility] REF LAB NON INTERF Microbiology BLOOD SPECIMEN / Unknown Collection / Unknown 03/03/2020 12:14 AM CDT 03/03/2020 12:27 AM CDT Dana Lala GROUN[employer] CREW SUPERVISOR-BUSINESS TECHNOLOGY PROFESSOR LAB - MICROB IOLOGY ORDERABLES [facility] REF LAB NON [address] * PNEUMOCYSTIS JIROVECI QUANT PCR (03/03/2020 12:14 AM CDT) See Scanned Document SEE SCANNED REPORT 03/07/2020 11:47 AM CDT [facility] REF LAB NON INTERF Microbiology BLOOD SPECIMEN / Unknown Collection / Unknown 03/03/2020 12:14 AM CDT 03/03/2020 12:27 AM CDT Dana Lala APRNBUSINESS TECHNOLOGY PROFESSOR LAB - MICROB IOLOGY ORDERABLES Performing Organization Address City/[facility]/ZIP Co de Phone Number [facility] REF LAB NON INTERF [address] [place] [address] * CT CHEST W CONTRAST (03/02/2020 10:04 [...] vena cava. Dictated by Jose Gonzalez MD (client services vice president). I, Dr. YARA MADRIGAL have personally reviewed and interpreted this examination/study. This report was electronically signed by YARA MADRIGAL on 03/03/2020 10:09 AM . Narrative 03/03/2020 10:09 [...] vena cava. Dictated by Jose Gonzalez MD (client services vice president). I, Dr. YARA MADRIGAL have personally reviewed and interpreted this examination/study. This report was electronically signed by YARA MADRIGAL on 03/03/2020 10:09 AM . Dana Lala GR[employer]W SUPERVISOR-BUSINESS TECHNOLOGY PROFESSOR CT ORDERABLE S * HERPES SIMPLEX 1+2 PCR CSF (03/01/2020 12:41 PM CDT) Herpes Simplex Virus 1 PCR CSF Not detected Not detected 03/01/2020 7:[address] [facility] Herpes Simplex Virus 2 PCR CSF Not detected Not detected 03/01/2020 7:[address] [facility] Microbiology CEREBROSPINAL FLUID SPECIMEN / Unknown Collection / Unknown 03/01/2020 12:41 PM CDT 03/01/2020 12:41 PM CDT Dana Lala APRN-BUSINESS TECHNOLOGY PROFESSOR LAB - MICROB IOLOGY ORDERABLES Performing Organization Address City/[facility]/ZIP Co de Phone Number [facility] [address] [place] [address], [facility] [phone] * CRYPTOCOCCUS ANTIGEN CSF (03/01/2020 11:16 AM CDT) Cryptococcus Antigen CSF Negative Negative 03/01/2020 4:46 PM CDT [facility] Cerebral spinal fluid CEREBROSPINAL FLUID SPECIMEN / Unknown Collection / Unknown 03/01/2020 11:16 AM CDT 03/01/2020 11:16 AM CDT Marek Vasquez MD LAB - MICROBIOLOGY O RDERABLES [facility] [address] [place] [address], [facility] [phone] * PROTEIN CSF (03/01/2020 10:48 AM CDT) Protein CSF 20 15 - 45 mg/dL 03/01/2020 11:32 AM CDT [facility] Cerebral spinal fluid CEREBROSPINAL FLUID SPECIMEN / Unknown Collection / Unknown 03/01/2020 10:48 AM CDT 03/01/2020 11:01 AM CDT Dana Lala [employer] SUPERVISOR-BUSINESS TECHNOLOGY PROFESSOR LAB - BODY F LUID ORDERABLES Performing Organization Address City/[facility]/ZIP Co de Phone Number [address] [phone], [facility] [phone] * (ABNORMAL) GLUCOSE CSF (03/01/2020 10:48 AM CDT) Glucose CSF 81(H) 40 - 70 mg/dL 03/01/2020 11:32 AM CDT [facility] Cerebral spinal fluid CEREBROSPINAL FLUID SPECIMEN / Unknown Collection / Unknown 03/01/2020 10:48 AM CDT 03/01/2020 11:01 AM CDT Dana Lala [employer] SUPERVISOR-BUSINESS TECHNOLOGY PROFESSOR LAB - BODY F LUID ORDERABLES [address] [phone], [facility] [phone] * FL LUMBAR PUNCTURE (03/01/2020 10:44 AM CDT) Anatomical Region Laterality Modality Spine Radiographic Chayito ging 03/01/2020 10:4 6 AM CDT Impressions 03/01/2020 4:46 PM CDT IMPRESSION: 1. Successful lumbar puncture under fluoroscopic guidance at L3-L4. Dictated by Camacho Samayoa MD ([employer]) Trey Harris MD, was personally present in the procedure room for the alfonso portions of the procedure and was immediately available to furnish services during the entire procedure. IDr. TREY have personally reviewed and interpreted this examination/study. This report was electronically signed by TREY MURPHY on 03/01/2020 4:46 PM . Narrative 03/01/2020 4:46 [...] at L3-L4. Dictated by Camacho Samayoa MD ([employer]) Trey Harris MD, was personally present in the procedure room for the alfonso portions of the procedure and was immediately available [facility] services during the entire procedure. Dr. TREY Harris have personally reviewed and interpreted this examination/study. This report was electronically signed by TREY MURPHY on 03/01/2020 4:46 PM . Rafaela Sood GR[employer]W SUPERVISOR-INTEL ANALYST FLUOROSCOPY OR DERABLES * OLIGOCLONAL BANDS CSF+BLOOD PANEL (03/01/2020 10:39 AM CDT) See Scanned Document See scanned report 03/03/2020 6:02 AM CDT [facility]) Oligoclonal Bands 03/03/2020 6:02 AM CDT [facility]) Other MISCELLANEOUS SAMPLES / Unknown Collection / Unknown 03/01/2020 10:39 AM CDT 03/01/2020 3:18 PM CDT Dana Lala APRN-BUSINESS TECHNOLOGY PROFESSOR LAB - BODY F LUID ORDERABLES Performing Organization Address City/[facility]/ZIP Co de Phone Number [facility]) [address] [place] [address], [facility] * CELL COUNT W DIFFERENTIAL CSF (03/01/2020 10:39 AM CDT) Color Fluid Colorless Colorless, Straw 03/01/2020 11:19 AM CDT [facility] Clarity Fluid Clear Clear 03/01/2020 11:19 AM CDT [facility] Volume Fluid 3.0 mL 03/01/2020 11:19 AM CDT [facility] WBC Calculation Fluid 1 0 - 5 /uL 03/01/2020 11:19 AM CDT [facility] RBC Calculation 1 /uL 0 11:19 AM CDT [facility] Xanthochromia Fluid Negative Negative 03/01/2020 11:19 AM CDT [facility] Differential Manual Differential to follow. 03/01/2020 11:19 AM CDT [facility] Cerebral spinal fluid CEREBROSPINAL FLUID SPECIMEN / Unknown Collection / Unknown 03/01/2020 10:39 AM CDT 03/01/2020 10:57 AM CDT Narrative [facility] - 03/01/2020 11:19 AM CDT No reference ranges established for body fluid cell counts. The reference ranges provided are derived from published literature. The test results must be integrated into the clinical context for interpretation. Dana Lala APRN-BUSINESS TECHNOLOGY PROFESSOR LAB - BODY F LUID ORDERABLES Performing Organization Address City/[facility]/ZIP Co de Phone Number [address] [phone] [phone] * ASPERGILLUS GALACTOMANNAN AG BAL/BLOOD (02/28/2020 5:55 AM CDT) Pathologist [facility] Aspergillus Antigen BAL/Serum 0.05 0.00 - 0.49 Index 03/02/2020 1:06 AM CDT [facility] ([facility]) Other BLOOD SPECIMEN / Unknown Collection / Unknown 02/28/2020 5:55 AM CDT 02/28/2020 7:04 AM CDT Narrative [facility] ([facility]) - 03/02/2020 1:06 AM CDT Performed at: - [address] [id number] Motor Brakeman: Sherri Nolan MD, Phone: [phone] Katia Roque [facility] LAB - CHEMISTRY O RDERABLES Performing Organization Address City/[facility]/ZIP Co de Phone Number [facility] ([facility]) [address] [place] [phone] * HISTOPLASMA GALACTOMANNAN AG URINE (02/27/2020 4:41 PM CDT) Urine URINE / Unknown Collection / Unknown 02/27/2020 4:41 PM CDT 02/27/2020 4:50 PM CDT Katia Roque [facility] LAB - URINE CHEMI STRY ORDERABLES Performing Organization Address [facility] Co de Phone Number [facility] REF LAB NON INTERF [address] [place] [phone], [place] * BLASTOMYCES ANTIBODY BY ID (02/27/2020 3:14 PM CDT) Pathologist [facility] Blastomyces Antibody (ID) None Detected None Detected 03/03/2020 6:06 PM CDT [facility] ([facility]) Comment: INTERPRETIVE INFORMATION: Blastomyces dermatitidis Antibodies by Immunodiffusion A positive result may suggest active or recent infection. The test is positive in about 80 percent of cases. Cross reactions occur, especially with histoplasmosis. A negative test (none detected) does not exclude blastomycosis. Performed By: [facility] [address] [place] [id number] Customer Service Receptionist: Toribio Elizondo MD, MS Blood BLOOD SPECIMEN / Unknown Lab Venipuncture / Unknown 02/27/2020 3:14 PM CDT 02/27/2020 3:21 PM CDT Katia Roque GROUN[employer]W SUPERVISOR-INTEL ANALYST LAB - CHEMISTRY O RDERABLES Performing Organization Address City/[facility]/ZIP Co de Phone Number [facility] ([facility]) [address] * HISTOPLASMA ANTIGEN BLOOD (02/27/2020 3:14 PM CDT) Comment SEE SCANNED REPORT 03/07/2020 12:10 PM CDT [facility] ([facility]) Blood BLOOD SPECIMEN / Unknown Lab Venipuncture / Unknown 02/27/2020 3:14 PM CDT 02/27/2020 3:21 PM CDT Katia Quintanautt [facility] LAB - CHEMISTRY O RDERABLES Performing Organization Address [facility]/ZIP Co de Phone Number [facility] ([facility]) [phone] * BARTONELLA HENSELAE ANTIBODY IGM (02/27/2020 4:11 AM CDT) Bartonella henselae Antibody IgM < 1:16 03/01/2020 11:29 PM CDT [facility] ([facility]) Comment: INTERPRETIVE INFORMATION: Bartonella henselae Antibody, IgM Less than 1:16 ...... Negative: No significant level of Bartonella henselae IgM antibody detected. 1:16 or greater ..... Positive: Presence of IgM antibody to Bartonella henselae detected, suggestive of current or recent infection. The presence of IgM antibodies suggest recent infection, low levels of IgM antibodies may occasionally persist for more than 12 months post infection. Test developed and characteristics determined by [facility]. See Compliance Statement A: [email or web address]/CS Performed By: [facility] [address] [place] [address] Customer Service Receptionist: Toribio Elizondo MD, MS Blood BLOOD SPECIMEN / Unknown Venipuncture / Unknown 02/27/2020 4:11 AM CDT 02/27/2020 4:17 AM CDT Monica Latfi [facility] LAB - SEROLOGY ORD ERABLES Performing Organization Address City/[facility]/ZIP Co de Phone Number [facility] ([facility]) [address] * BARTONELLA HENSELAE ANTIBODY IGG (02/27/2020 4:11 AM CDT) Bartonella henselae Antibody IgG <1:64 03/01/2020 11:29 PM CDT KEL[facility] ([facility]) Comment: INTERPRETIVE INFORMATION: Bartonella henselae Ab, IgG Less than 1:64 ....... Negative: No significant level of Bartonella henselae IgG antibody detected. 1:64 - 1:128 ......... Equivocal: Questionable presence of Bartonella henselae IgG antibody detected. Repeat testing in 10-14 days may be helpful. 1:256 or greater ..... Positive: Presence of IgG antibody to Bartonella henselae detected, suggestive of current or past infection. A low positive suggests [...] time. Test developed and characteristics determined by [facility]. See Compliance Statement A: [email or web address]/CS Performed By: [facility] [address] [place] [address] Customer Service Receptionist: Toribio Elizondo MD, MS Blood BLOOD SPECIMEN / Unknown Venipuncture / Unknown 02/27/2020 4:11 AM CDT 02/27/2020 4:17 AM CDT Monica Latif [facility] LAB - SEROLOGY ORD ERABLES Performing Organization Address City/[facility]/ZIP Co de Phone Number [facility] ([facility]) [address] * TOXOPLASMA GONDII PCR (02/27/2020 4:11 AM CDT) Pathologist [facility] Toxoplasma gondii PCR Not Detected 03/06/2020 10:16 AM CDT [facility] ([facility]) Comment: NOT DETECTED - A negative result does not rule out the presence of PCR inhibitors in the patient specimen or assay specific nucleic acid in concentrations below the level of detection by the assay. The specimen submitted for testing did not meet [facility] submission guidelines. Testing was performed on a specimen that did not meet validated type requirements. Performance characteristics of this assay may be affected. Interpret results with caution. Please refer to the [facility] Test Directory for information on specimen acceptability: [email or web address]/Specimen-Handling/index.jsp. INTERPRETIVE INFORMATION: Toxoplasma gondii by PCR This test was developed and its performance characteristics determined by [facility]. The U.S. Food and Drug Administration has not approved or cleared this test; however, FDA clearance or approval is not currently required for clinical use. The results are not intended to be used as the sole means for clinical diagnosis or patient management decisions. Performed by [facility], [address] [place] [address] www.[employer], Toribio Elizondo MD, Lab. Director Source Toxoplasma Blood 020 10:16 AM CDT [facility]) Microbiology BLOOD SPECIMEN / Unknown Collection / Unknown 02/27/2020 4:11 AM CDT 02/27/2020 4:17 AM CDT Narrative [facility]) - 03/06/2020 10:16 AM CDT Test results should be interpreted with caution. Assay was performed at client's request on a sub-optimal submission. Monica Latif GROUNDS CREW SUPERVISOR-INTEL ANALYST LAB - MICROBIOLOGY ORDERABLES [facility]) [address] * TOXOPLASMA GONDII ANTIBODY IGM (02/27/2020 4:11 AM CDT) Pathologist [facility] Toxoplasma Antibody IgM 6.2 <=7.9 AU/mL 03/02/2020 4:23 PM CDT [facility] ([facility]) Comment: INTERPRETIVE INFORMATION: Toxoplasma Ab, IgM 7.9 AU/mL or less .... Not Detected. 8.0-9.9 AU/mL ........ Indeterminate - Repeat testing in 10-14 days may be helpful. 10.0 AU/mL or greater. Detected - Significant level of Toxoplasma gondii IgM antibody detected and may indicate a current or recent infection. However, low levels of IgM antibodies may occasionally persist for more than 12 months post-infection. This test is performed using the [employer] LIAISON. As suggested by the CDC, any [...] the amount of antibody present. Performed By: [facility] [address] [place] [address] Customer Service Receptionist: Toribio Elizondo MD, MS Blood BLOOD SPECIMEN / Unknown Venipuncture / Unknown 02/27/2020 4:11 AM CDT 02/27/2020 4:17 AM CDT Monica MIMS LAB - SEROLOGY ORD ERABLES [facility] ([facility]) [address] [place] [address], [facility] * TOXOPLASMA GONDII ANTIBODY IGG (02/27/2020 4:11 AM CDT) Only the most recent of2 resultswithin the time period is included. Pathologist [facility] Toxoplasma Antibody IgG <3.0 IU/mL 03/01/2020 2:42 AM CDT [facility] ([facility]) Comment: INTERPRETIVE INFORMATION: Toxoplasma Ab, IgG 7.1 IU/mL or less....... Not Detected 7.2-8.7 IU/mL .......... Indeterminate-Repeat testing in 10-14 days may be helpful. 8.8 IU/mL or greater ... Detected The best [...] the amount of antibody present. Performed By: [place] [address] Customer Service Receptionist: Toribio Elizondo MD, MS Blood BLOOD SPECIMEN / Unknown Venipuncture / Unknown 02/27/2020 4:11 AM CDT 02/27/2020 4:17 AM CDT Monica Latif [facility] LAB - CHEMISTRY OR DERABLES Performing Organization Address City/[facility]/ZIP Co de Phone Number [facility]) [address] * CRYPTOCOCCUS ANTIGEN BLOOD (02/27/2020 4:11 AM CDT) Cryptococcus Antigen Negative Negative 02/27/2020 9:20 AM CDT [facility] Blood BLOOD SPECIMEN / Unknown Venipuncture / Unknown 02/27/2020 4:11 AM CDT 02/27/2020 4:17 AM CDT Monica Latif [facility] LAB - SEROLOGY ORD ERABLES [facility] [address] [place] [address], [facility] [phone] * MRI BRAIN WWO CONTRAST (02/26/2020 9:47 PM CDT) Anatomical Region Laterality Modality Head Magnetic Resonan ce 02/27/2020 4:12 PM CDT Impressions 02/27/2020 4:21 PM CDT IMPRESSION: 1. No evidence of acute intracranial findings. This report was electronically signed by KISHORE LOAIZA on 02/27/2020 4:21 PM . Narrative 02/27/2020 4:21 [...] fungus isolated SPENCER 04/11/2020 10:26 AM CDT [facility] Blood PERIPHERAL BLOOD / Unknown Lab Venipuncture / Unknown 02/26/2020 5:05 PM CDT 02/26/2020 5:32 PM CDT Monica MIMS LAB - MICROBIOLOGY ORDERABLES [facility] [address] [place] [address], [facility] [phone] * CULTURE BLOOD AFB (02/26/2020 5:05 PM CDT) Culture No acid-fast bacillus isolated 04/11/2020 4:08 PM CDT [facility] Blood PERIPHERAL BLOOD / Unknown Lab Venipuncture / Unknown 02/26/2020 5:05 PM CDT 02/26/2020 6:56 PM CDT Monica Latif GROUNDS CREW SUPERVISOR-INTEL ANALYST LAB - MICROBIOLOGY ORDERABLES [facility] [address] [place] [address], [facility] [phone] * CT CHEST ABDOMEN PELVIS W CONT [...] or pelvis. Dictated by Love Rowland MD (client services vice president). I, Dr. JOHN BLUM MD have personally reviewed and interpreted this examination/study. This report was electronically signed by JOHN BLUM MD on 02/27/2020 7:01 AM . Narrative 02/27/2020 7:01 [...] or pelvis. Dictated by Love Rowland MD (client services vice president). I, Dr. JOHN BLUM MD have personally reviewed and interpreted this examination/study. This report was electronically signed by JOHN BLUM MD on02/27/2020 7:01 AM . Katia Roque GROUN[employer] CREW SUPERVISOR-INTEL ANALYST CT ORDERABLES * CYTOMEGALOVIRUS (CMV) QUANTITATIVE PLASMA (02/26/2020 12:01 PM CDT) Only the most recent of8 resultswithin the time period is included. CMV Quant by PCR, Interp Not Detected Not Detected 02/28/2020 5:30 PM CDT [facility] Blood BLOOD SPECIMEN / Unknown Lab Venipuncture / Unknown 02/26/2020 12:01 PM CDT 02/26/2020 12:30 PM CDT Narrative [facility] - 02/28/2020 5:30 PM CDT The CMV DNA analysis utilized real-time PCR, and is reported as Not Detected, Detected (<50 IU/mL) [or Detected (<1.70 log IU/mL], 50 156,000,000 IU/mL [or 1.70 to 8.19 log IU/mL], or >156,000,000 IU/mL [>8.19 log IU/mL]. The analytic sensitivity (LOD) of the assay is 31.20 IU/mL [1.49 log IU/mL] (100% of samples with this CMV/DNA level were detected). Linear range of the assay is 50 156,000,000 IU/ml [or 1.70 to 8.19 log [...] using an US FDA approved test methodology ([employer] CMV). Katia Roque GROUNDS CREW SUPERVISOR-INTEL ANALYST LAB - CHEMISTRY O RDERABLES Performing Organization Address [facility] de Phone Number [facility] [address] [place] [address], [facility] [phone] * ISA-JUAN VIRUS QUANT BLOOD STL (02/26/2020 12:01 PM CDT) Pathologist [facility] EBV Quant by PCR, Interp Not Detected Not Detected 02/28/2020 2:27 PM CDT [facility] Specimen Type Plasma 02/28/2020 2:27 PM CDT [facility] Blood BLOOD SPECIMEN / Unknown Lab Venipuncture / Unknown 02/26/2020 12:01 PM CDT 02/26/2020 12:30 PM CDT Narrative [facility] - 02/28/2020 2:27 PM CDT DNA [...] developed and its performance characteristics determined by [facility]. It has not been cleared or approved by the U.S. Food and Drug Administration. The FDA has determined that such clearance or approval is not necessary. The test is used for clinical purposes. It should not be regarded as investigational or for research. This laboratory is certified under the Clinical Laboratory Improvement Amendments of 1988(CLIA-88) as qualified to perform high complexity clinical laboratory testing. Katia Roque GROUNDS CREW SUPERVISOR-INTEL ANALYST LAB - CHEMISTRY O RDERABLES Performing Organization Address [facility] Co de Phone Number [facility] [address] [place] [address], [facility] [phone] * ADENOVIRUS PCR QUANTITATIVE (02/26/2020 12:01 PM CDT) Pathologist [facility] Adenovirus Quantitative Copy/mL <1,000 cpy/mL 03/03/2020 3:35 PM CDT [facility] ([facility]) Adenovirus Quantitative Source Blood 03/03/2020 3:35 PM CDT [facility] ([facility]) Adenovirus Quantitative Log Copy/mL <3.0 log cpy/mL 03/03/2020 3:35 PM CDT [facility] ([facility]) Interpretation Adenovirus Quantitative Not Detected Not Detected 03/03/2020 3:35 PM CDT [facility] ([facility]) Comment: INTERPRETIVE INFORMATION: Adenovirus, Quantitative PCR [...] methodologies. Test developed and characteristics determined by [facility]. See Compliance Statement A: [employer]/CS Performed by [facility], [address] [place], [place] [id number] www.[employer], Toribio Elizondo MD, Lab. Director Blood BLOOD SPECIMEN / Unknown Lab Venipuncture / Unknown 02/26/2020 12:01 PM CDT 02/26/2020 12:30 PM CDT Katia Roque GR[employer] SUPERVISOR-INTEL ANALYST LAB - SEROLOGY OR DERABLES [facility]) [address] [place], [place] [address] * CARDIAC EKG ORDER (10/27/2019 2:07 PM CDT) Only the most recent of2 resultswithin the time period is included. Narrative 10/27/2019 2:07 PM CDT Ordered by an unspecified provider. Scanned Document CARDIAC SERVICES ORD ERABLES * TRANSFUSE PLATELET PHERESIS UNIT(S) (10/27/2019 6:07 AM CDT) Saturnino Crawford MD NURSING - BLOOD PROD TRANSFUSION * (ABNORMAL) PLATELET COUNT AUTO (10/27/2019 6:03 AM CDT) Pathologist [facility] Platelet Count 60(L) 150 - 400 10 3/uL 10/27/2019 6:35 AM CDT [facility] Comment:Confirmed by repeat analysis. Blood BLOOD SPECIMEN / Unknown Venipuncture / Unknown 10/27/2019 6:03 AM CDT 10/27/2019 6:13 AM CDT Saturnino Crawford MD LAB - HEMATOLOGY ORD ERABLES [facility] [address] [phone] * TYPE + SCREEN PANEL (10/27/2019 12:29 AM CDT) Only the most recent of5 resultswithin the time period is included. [facility] Antibody Screen NEG 0 1:37 AM CDT [facility] ABO Rh A POS 10/27/2019 1:37 AM CDT [facility] Blood Bank BLOOD SPECIMEN / Unknown 10/27/2019 12:29 AM CDT 10/27/2019 12:30 AM CDT Saturnino Crawford MD LAB - BLOOD BANK ORD ERABLES Performing Organization Address City/[facility] Co de Phone Number [facility] [address] [place] [address] * C DIFFICILE GDH AG + TOXIN A+B (10/23/2019 6:08 AM CDT) [facility] GDH Antigen Negative Negative, Invalid 10/23/2019 10:[address] [facility] C difficile Toxin A + B Negative Negative, Invalid 10/23/2019 10:[address] [facility] Interpretation C difficile Negative for toxigenic C. difficile Negative for toxigenic C. difficile 10/23/2019 10:[address] [facility] Stool STOOL SPECIMEN / Unknown Collection / Unknown 10/23/2019 6:08 AM CDT 10/23/2019 6:08 AM CDT Rfaaela Salgado GROUN[employer]W SUPERVISOR-INTEL ANALYST LAB - MICRO BIOLOGY ORDERABLES [facility] [address] [place] [address], [facility] [phone] * VASCULAR LAB ORDER (09/28/2019 12:07 PM BARKER OPERATOR) Anatomical Region Laterality Modality Intravascular Ul trasound Narrative 09/28/2019 12:07 PM BARKER OPERATOR Ordered by an unspecified provider. Scanned Document VASCULAR LAB ORDERAB LES * VAS RIGHT VENOUS DUPLEX UE (09/27/2019 10:57 AM BARKER OPERATOR) Anatomical Region Laterality Modality Upper Extremity Intravascular Ul trasound 09/27/2019 10:2 5 AM BARKER OPERATOR Narrative Procedure Note Alonso Carreon MD - 10/01/2019 Lara Patrick [employer] SUPERVISOR-INTEL ANALYST VASCULAR LAB OR DERABLES * FLOW CYTOMETRY CD34 COUNT BLOOD (09/21/2019 7:27 AM BARKER OPERATOR) Only the most recent of2 resultswithin the time period is included. Reason for test B-cell lymphoma, unspecified B-cell lymphoma type, unspecified body region 09/21/2019 10:14 AM [facility] Client Specimen ID # [id number] 09/21/2019 10:14 AM [facility] Number of Markers 2 09/21/2019 10:14 AM [facility] Flow Cytometry Results Differential Result % Comment Total Viability 99.0 Lymph/[place]an Region Surface Marker Results % Absolute Count (cell/uL) CD34 0.08 73.260 CD45 96.93 88,763.648 09/21/2019 10:14 AM [facility] Flow Cytometry Interpretation Testing is technical only and does not require an interpretation of results. 09/21/2019 10:14 AM [facility] Disclaimer Test performed at [facility], [address] [place] [address], [id number]. This test was developed and its performance [...] high complexity clinical testing. 09/21/2019 10:14 AM [facility] Embedded Images 0 10:14 AM [facility] Blood BLOOD SPECIMEN / Unknown Venipuncture / Unknown 09/21/2019 7:27 AM BARKER OPERATOR 09/21/2019 8:[address] [facility] PATHOLOGY LAB - 09/21/2019 7:00 AM Apollo Jha MD 09/22/2019 5:04 PM Cellular Therapy Collections Progress Note Marcello Mansfield Mindy 09/21/2019 Diagnosis: 1. B-cell lymphoma, unspecified B-cell [...] this am. No F/C/N/V/D/COOPER/SOB. Allergies Allergen Reactions Adhesive Sensitivity Urticaria and Other Electrodes -- welps where stickers are Also, use paper tape Current Outpatient Medications Medication Sig Dispense Refill acetaminophen (TYLENOL) 325 MG tablet Take 2 tablets by mouth every 6 hours as needed for Fever or Pain Maximum allowable Acetaminophen amount = 4 Grams (4000 mg) / 24 hours. (Patient not taking: Reported on 09/21/2019) acyclovir (ZOVIRAX) 400 MG tablet Take 1 tablet by mouth 2 times daily 60 tablet 11 BABY ASPIRIN PO Take 81 mg by mouth diclofenac sodium EC (VOLTAREN) 75 MG tablet Take 75 mg by mouth 2 times daily docusate sodium (COLACE) 100 MG capsule Take 1 capsule by mouth 2 times daily 60 capsule 0 enoxaparin (LOVENOX) injection Inject 40 mg subcutaneously once daily 30 syringe 2 escitalopram (LEXAPRO) 10 MG tablet Take 1 tablet by mouth once daily 30 tablet 0 ibuprofen (MOTRIN) 600 MG tablet Take 1 tablet by mouth every 6 hours (Patient taking differently: Take 200 mg by mouth every 6 hours ) Lansoprazole (PREVACID PO) Take by mouth as needed lidocaine-prilocaine (EMLA) 2.5-2.5 % cream Apply to port site 30-60 mins before use. ondansetron, disintegrating, (ZOFRAN ODT) 8 MG tablet Dissolve 1 tablet on top of tongue then swallow with saliva every 8 hours as needed for nausea or vomiting oxyCODONE, immediate release, (ROXICODONE) 5 MG tablet Take 1 tablet by mouth every 6 hours as needed for Pain 28 tablet 0 penicillin v potassium (VEETIDS) 250 MG tablet Take 1 tablet by mouth 2 times daily (Patient taking differently: Take 250 mg by mouth 2 times daily Took 500 mg additional per dentist instructions) 60 tablet 5 polyethylene glycol 3350 (MIRALAX) packet Take 17 g by mouth once daily prochlorperazine (COMPAZINE) 10 MG tablet Take 10 mg by mouth every 6 hours as needed Current Facility-Administered Medications Medication Dose Route Frequency Provider Last Rate Last Dose 0.9% NaCl injection 20 mL 20 mL Intracatheter PRN Tiffanie Mcpherson APRN-CNP 20 mL at 09/21/19 1438 calcium gluconate 5 g in 300 mL NS 5 g Intravenous PRN Tiffanie Mcpherson APRN-CNP Stopped at 09/21/19 1350 heparin lock flush injection 300 Units 300 Units Intravenous PRN Tiffanie Mcpherson APRN-CNP 300 Units at 09/21/19 1352 Physical Exam Constitutional: Patient Vitals for the past 24 hrs: BP Temp Temp src Pulse Resp SpO2 Height Weight 09/21/19 1415 133/80 98.9 F Oral 94 18 98 % 09/21/19 1211 143/82 98.3 F Oral 88 18 97 % 09/21/19 1119 144/82 88 18 98 % 09/21/19 1036 130/75 98.6 F Oral 93 18 99 % 09/21/19 0923 128/80 98.1 F Oral 86 18 97 % 09/21/19 0741 129/86 98.1 F Oral 97 18 97 % 1.715 m [...] Range WBC 92.5 (HH) 3.5 - 10.5 10 3/uL RBC 4.26 (L) 4.30 - 5.70 10 6/uL Hemoglobin 12.6 (L) 13.5 - 17.5 g/dL Hematocrit 38.3 (L) 39.0 - 50.0 % MCV 89.9 81.0 - 97.0 fL MCH 29.6 28.0 - 34.0 pg MCHC 32.9 32.0 - 36.0 g/dL Platelet Count 303 150 - 400 10 3/uL RDW-SD 48.9 36.0 - 50.0 fL RDW-CV 14.9 (H) 11.2 - 14.8 % MPV 10.9 9.3 - 12.8 fL nRBC Absolute 0.14 (H) 0 10 3/uL nRBC Auto 0.2 (H) 0 /100 WBC [...] unspecified body region Client Specimen ID # [id number] Number of Markers 2 Flow Cytometry Results Differential Result % Comment Total Viability 99.0 Lymph/[place] Region Surface Marker Results % Absolute Count (cell/uL) CD34 0.08 73.260 CD45 96.93 88,763.648 Flow Cytometry Interpretation Testing is technical only and does not require an interpretation of results. Disclaimer Test performed at [facility], [address] [place] [address], [address]. This test was developed and its performance [...] Ref Range WBC (corrected for NRBC) 92.5 10 3/uL Total Cell Count 100 Neutrophils Absolute Manual 69.38 (H) 1.60 - 7.00 10 3/uL Lymphocyte Absolute 3.70 (H) 0.80 - 2.90 10 3/uL Monocytes Absolute 9.25 (H) 0.14 - 0.66 10 3/uL Eosinophils Absolute Manual 4.63 (H) 0.00 - 0.22 10 3/uL Basophil Absolute Manual 1.85 (H) 0.00 - 0.06 10 3/uL Band % Manual 18 (H) 0 - [...] 1+ (Abnormal) None Ovalocytes Occasional (Abnormal) None [place] Cells 1+ (Abnormal) None Tear Drop Cells Occasional (Abnormal) None Toxic Granulation 1+ (Abnormal) None Dohle Bodies 1+ (Abnormal) None CBC W AUTO DIFFERENTIAL Collection Time: 09/21/19 2:13 PM Result Value Ref Range WBC 66.1 (HH) 3.5 - 10.5 10 3/uL RBC 3.65 (L) 4.30 - 5.70 10 6/uL Hemoglobin 11.0 (L) 13.5 - 17.5 g/dL Hematocrit 32.7 (L) 39.0 - 50.0 % MCV 89.6 81.0 - 97.0 fL MCH 30.1 28.0 - 34.0 pg MCHC 33.6 32.0 - 36.0 g/dL Platelet Count 135 (L) 150 - 400 10 3/uL RDW-SD 49.0 36.0 - 50.0 fL RDW-CV 14.8 11.2 - 14.8 % MPV 9.3 9.3 - 12.8 fL nRBC Absolute 0.12 (H) 0 10 3/uL nRBC Auto 0.2 (H) 0 /100 WBC DIFFERENTIAL MANUAL Collection Time: 09/21/19 2:13 PM Result Value Ref Range WBC (corrected for NRBC) 66.1 10 3/uL Total Cell Count 100 Neutrophils Absolute Manual 56.19 (H) 1.60 - 7.00 10 3/uL Lymphocyte Absolute 0.66 (L) 0.80 - 2.90 10 3/uL Monocytes Absolute 4.63 (H) 0.14 - 0.66 10 3/uL Eosinophils Absolute Manual 3.31 (H) 0.00 - 0.22 10 3/uL Band % Manual 28 (H) 0 - [...] Day 5 of his Neupogen. Catheter placement was confirmed per IR note. No changes were noted in Donor History Questionnaire. Donor was stable going into collection. Pre collection Hct and Plt levels were acceptable. Post collection Hct=32.7, Nzv=846 . The collection was well tolerated. The goal for this procedure is 2-4 x 10e6 CD34 cells/kg. Processed volume during procedure was [id number]. Yield of collection was 10.4x10e6 CD34/kg. Goal was reached. Apollo Garcia MD, PhD Bill Ferrera MD LAB - PATHOLOGY/CY TOLOGY ORDERABLES [facility] [address] [phone] * (ABNORMAL) CALCIUM IONIZED WHOLE BLOOD (09/21/2019 7:27 AM [facility]) Only the most recent of2 resultswithin the time period is included. Ionized Calcium Whole Blood 1.19 mmol/L 09/21/2019 7:57 AM [facility] Adjusted Ionized Calcium 1.15(L) 1.19 - 1.34 mmol/L 09/21/2019 7:57 AM [facility] pH Whole Blood 7.33(L) 7.35 - 7.45 09/21/2019 7:57 AM [facility] Blood WHOLE BLOOD SPECIMEN / Unknown Venipuncture / Unknown 09/21/2019 7:27 AM [facility] 09/21/2019 7:39 AM [facility] - 09/21/2019 7:00 AM BARKER OPERATOR Apollo Garcia MD 09/22/2019 5:04 PM Cellular Therapy Collections Progress Note Marcello [...] this am. No F/C/N/V/D/COOPER/SOB. Allergies Allergen Reactions Adhesive Sensitivity Urticaria and Other Electrodes -- welps where stickers are Also, use paper tape Current Outpatient Medications Medication Sig Dispense Refill acetaminophen (TYLENOL) 325 MG tablet Take 2 tablets by mouth every 6 hours as needed for Fever or Pain Maximum allowable Acetaminophen amount = 4 Grams (4000 mg) / 24 hours. (Patient not taking: Reported on 09/21/2019) acyclovir (ZOVIRAX) 400 MG tablet Take 1 tablet by mouth 2 times daily 60 tablet 11 BABY ASPIRIN PO Take 81 mg by mouth diclofenac sodium EC (VOLTAREN) 75 MG tablet Take 75 mg by mouth 2 times daily docusate sodium (COLACE) 100 MG capsule Take 1 capsule by mouth 2 times daily 60 capsule 0 enoxaparin (LOVENOX) injection Inject 40 mg subcutaneously once daily 30 syringe 2 escitalopram (LEXAPRO) 10 MG tablet Take 1 tablet by mouth once daily 30 tablet 0 ibuprofen (MOTRIN) 600 MG tablet Take 1 tablet by mouth every 6 hours (Patient taking differently: Take 200 mg by mouth every 6 hours ) Lansoprazole (PREVACID PO) Take by mouth as needed lidocaine-prilocaine (EMLA) 2.5-2.5 % cream Apply to port site 30-60 mins before use. ondansetron, disintegrating, (ZOFRAN ODT) 8 MG tablet Dissolve 1 tablet on top of tongue then swallow with saliva every 8 hours as needed for nausea or vomiting oxyCODONE, immediate release, (ROXICODONE) 5 MG tablet Take 1 tablet by mouth every 6 hours as needed for Pain 28 tablet 0 penicillin v potassium (VEETIDS) 250 MG tablet Take 1 tablet by mouth 2 times daily (Patient taking differently: Take 250 mg by mouth 2 times daily Took 500 mg additional per dentist instructions) 60 tablet 5 polyethylene glycol 3350 (MIRALAX) packet Take 17 g by mouth once daily prochlorperazine (COMPAZINE) 10 MG tablet Take 10 mg by mouth every 6 hours as needed Current Facility-Administered Medications Medication Dose Route Frequency Provider Last Rate Last Dose 0.9% NaCl injection 20 mL 20 mL Intracatheter PRN Tiffanie Mcpherson APRN-CNP 20 mL at 09/21/19 1438 calcium gluconate 5 g in 300 mL NS 5 g Intravenous PRN Tiffanie Mcpherson APRN-CNP Stopped at 09/21/19 1350 heparin lock flush injection 300 Units 300 Units Intravenous PRN Tiffanie Mcpherson APRN-CNP 300 Units at 09/21/19 1352 Physical Exam Constitutional: Patient Vitals for the past 24 hrs: BP Temp Temp src Pulse Resp SpO2 Height Weight 09/21/19 1415 133/80 98.9 F Oral 94 18 98 % 09/21/19 1211 143/82 98.3 F Oral 88 18 97 % 09/21/19 1119 144/82 88 18 98 % 09/21/19 1036 130/75 98.6 F Oral 93 18 99 % 09/21/19 0923 128/80 98.1 F Oral 86 18 97 % 09/21/19 0741 129/86 98.1 F Oral 97 18 97 % 1.715 m [...] Range WBC 92.5 (HH) 3.5 - 10.5 10 3/uL RBC 4.26 (L) 4.30 - 5.70 10 6/uL Hemoglobin 12.6 (L) 13.5 - 17.5 g/dL Hematocrit 38.3 (L) 39.0 - 50.0 % MCV 89.9 81.0 - 97.0 fL MCH 29.6 28.0 - 34.0 pg MCHC 32.9 32.0 - 36.0 g/dL Platelet Count 303 150 - 400 10 3/uL RDW-SD 48.9 36.0 - 50.0 fL RDW-CV 14.9 (H) 11.2 - 14.8 % MPV 10.9 9.3 - 12.8 fL nRBC Absolute 0.14 (H) 0 10 3/uL nRBC Auto 0.2 (H) 0 /100 WBC [...] unspecified body region Client Specimen ID # [id number] Number of Markers 2 Flow Cytometry Results Differential Result % Comment Total Viability 99.0 Lymph/[place] Region Surface Marker Results % Absolute Count (cell/uL) CD34 0.08 73.260 CD45 96.93 88,763.648 Flow Cytometry Interpretation Testing is technical only and does not require an interpretation of results. Disclaimer Test performed at [facility], [address] [place] [address], [address]. This test was developed and its performance [...] Ref Range WBC (corrected for NRBC) 92.5 10 3/uL Total Cell Count 100 Neutrophils Absolute Manual 69.38 (H) 1.60 - 7.00 10 3/uL Lymphocyte Absolute 3.70 (H) 0.80 - 2.90 10 3/uL Monocytes Absolute 9.25 (H) 0.14 - 0.66 10 3/uL Eosinophils Absolute Manual 4.63 (H) 0.00 - 0.22 10 3/uL Basophil Absolute Manual 1.85 (H) 0.00 - 0.06 10 3/uL Band % Manual 18 (H) 0 - [...] 1+ (Abnormal) None Ovalocytes Occasional (Abnormal) None [place] Cells 1+ (Abnormal) None Tear Drop Cells Occasional (Abnormal) None Toxic Granulation 1+ (Abnormal) None Dohle Bodies 1+ (Abnormal) None CBC W AUTO DIFFERENTIAL Collection Time: 09/21/19 2:13 PM Result Value Ref Range WBC 66.1 (HH) 3.5 - 10.5 10 3/uL RBC 3.65 (L) 4.30 - 5.70 10 6/uL Hemoglobin 11.0 (L) 13.5 - 17.5 g/dL Hematocrit 32.7 (L) 39.0 - 50.0 % MCV 89.6 81.0 - 97.0 fL MCH 30.1 28.0 - 34.0 pg MCHC 33.6 32.0 - 36.0 g/dL Platelet Count 135 (L) 150 - 400 10 3/uL RDW-SD 49.0 36.0 - 50.0 fL RDW-CV 14.8 11.2 - 14.8 % MPV 9.3 9.3 - 12.8 fL nRBC Absolute 0.12 (H) 0 10 3/uL nRBC Auto 0.2 (H) 0 /100 WBC DIFFERENTIAL MANUAL Collection Time: 09/21/19 2:13 PM Result Value Ref Range WBC (corrected for NRBC) 66.1 10 3/uL Total Cell Count 100 Neutrophils Absolute Manual 56.19 (H) 1.60 - 7.00 10 3/uL Lymphocyte Absolute 0.66 (L) 0.80 - 2.90 10 3/uL Monocytes Absolute 4.63 (H) 0.14 - 0.66 10 3/uL Eosinophils Absolute Manual 3.31 (H) 0.00 - 0.22 10 3/uL Band % Manual 28 (H) 0 - [...] Day 5 of his Neupogen. Catheter placement was confirmed per IR note. No changes were noted in Donor History Questionnaire. Donor was stable going into collection. Pre collection Hct and Plt levels were acceptable. Post collection Hct=32.7, Zwh=190 . The collection was well tolerated. The goal for this procedure is 2-4 x 10e6 CD34 cells/kg. Processed volume during procedure was [id number]. Yield of collection was 10.4x10e6 CD34/kg. Goal was reached. Apollo Garcia MD, PhD Bill Ferrera MD LAB - CHEMISTRY OR DERABLES Performing Organization Address City/State/[facility] Co de Phone Number [address] [phone] * POTASSIUM BLOOD (09/21/2019 7:27 AM BARKER OPERATOR) Only the most recent of2 resultswithin the time period is included. Potassium 4.1 3.5 - 4.5 mmol/L 09/21/2019 7:57 AM [facility] Blood BLOOD SPECIMEN / Unknown Venipuncture / Unknown 09/21/2019 7:27 AM [facility] 09/21/2019 7:39 AM BARKER OPERATOR Narrative [facility] - 09/21/2019 7:00 AM BARKER OPERATOR Apollo Garcia MD 09/22/2019 5:04 PM Cellular Therapy Collections Progress Note Marcello [...] this am. No F/C/N/V/D/COOPER/SOB. Allergies Allergen Reactions Adhesive Sensitivity Urticaria and Other Electrodes -- welps where stickers are Also, use paper tape Current Outpatient Medications Medication Sig Dispense Refill acetaminophen (TYLENOL) 325 MG tablet Take 2 tablets by mouth every 6 hours as needed for Fever or Pain Maximum allowable Acetaminophen amount = 4 Grams (4000 mg) / 24 hours. (Patient not taking: Reported on 09/21/2019) acyclovir (ZOVIRAX) 400 MG tablet Take 1 tablet by mouth 2 times daily 60 tablet 11 BABY ASPIRIN PO Take 81 mg by mouth diclofenac sodium EC (VOLTAREN) 75 MG tablet Take 75 mg by mouth 2 times daily docusate sodium (COLACE) 100 MG capsule Take 1 capsule by mouth 2 times daily 60 capsule 0 enoxaparin (LOVENOX) injection Inject 40 mg subcutaneously once daily 30 syringe 2 escitalopram (LEXAPRO) 10 MG tablet Take 1 tablet by mouth once daily 30 tablet 0 ibuprofen (MOTRIN) 600 MG tablet Take 1 tablet by mouth every 6 hours (Patient taking differently: Take 200 mg by mouth every 6 hours ) Lansoprazole (PREVACID PO) Take by mouth as needed lidocaine-prilocaine (EMLA) 2.5-2.5 % cream Apply to port site 30-60 mins before use. ondansetron, disintegrating, (ZOFRAN ODT) 8 MG tablet Dissolve 1 tablet on top of tongue then swallow with saliva every 8 hours as needed for nausea or vomiting oxyCODONE, immediate release, (ROXICODONE) 5 MG tablet Take 1 tablet by mouth every 6 hours as needed for Pain 28 tablet 0 penicillin v potassium (VEETIDS) 250 MG tablet Take 1 tablet by mouth 2 times daily (Patient taking differently: Take 250 mg by mouth 2 times daily Took 500 mg additional per dentist instructions) 60 tablet 5 polyethylene glycol 3350 (MIRALAX) packet Take 17 g by mouth once daily prochlorperazine (COMPAZINE) 10 MG tablet Take 10 mg by mouth every 6 hours as needed Current Facility-Administered Medications Medication Dose Route Frequency Provider Last Rate Last Dose 0.9% NaCl injection 20 mL 20 mL Intracatheter PRN Tiffanie Mcpherson APRN-INTEL ANALYST 20 mL at 09/21/19 1438 calcium gluconate 5 g in 300 mL NS 5 g Intravenous PRN Tiffanie Mcpherson APRN-INTEL ANALYST Stopped at 09/21/19 1350 heparin lock flush injection 300 Units 300 Units Intravenous PRN Tiffanie Mcpherson APRN-CNP 300 Units at 09/21/19 1352 Physical Exam Constitutional: Patient Vitals for the past 24 hrs: BP Temp Temp src Pulse Resp SpO2 Height Weight 09/21/19 1415 133/80 98.9 F Oral 94 18 98 % 09/21/19 1211 143/82 98.3 F Oral 88 18 97 % 09/21/19 1119 144/82 88 18 98 % 09/21/19 1036 130/75 98.6 F Oral 93 18 99 % 09/21/19 0923 128/80 98.1 F Oral 86 18 97 % 09/21/19 0741 129/86 98.1 F Oral 97 18 97 % 1.715 m [...] Range WBC 92.5 (HH) 3.5 - 10.5 10 3/uL RBC 4.26 (L) 4.30 - 5.70 10 6/uL Hemoglobin 12.6 (L) 13.5 - 17.5 g/dL Hematocrit 38.3 (L) 39.0 - 50.0 % MCV 89.9 81.0 - 97.0 fL MCH 29.6 28.0 - 34.0 pg MCHC 32.9 32.0 - 36.0 g/dL Platelet Count 303 150 - 400 10 3/uL RDW-SD 48.9 36.0 - 50.0 fL RDW-CV 14.9 (H) 11.2 - 14.8 % MPV 10.9 9.3 - 12.8 fL nRBC Absolute 0.14 (H) 0 10 3/uL nRBC Auto 0.2 (H) 0 /100 WBC [...] unspecified body region Client Specimen ID # [id number] Number of Markers 2 Flow Cytometry Results Differential Result % Comment Total Viability 99.0 Lymph/[place] Surface Marker Results % Absolute Count (cell/uL) CD34 0.08 73.260 CD45 96.93 88,763.648 Flow Cytometry Interpretation Testing is technical only and does not require an interpretation of results. Disclaimer Test performed at [facility], [address] [place] [address], [address]. This test was developed and its performance [...] Ref Range WBC (corrected for NRBC) 92.5 10 3/uL Total Cell Count 100 Neutrophils Absolute Manual 69.38 (H) 1.60 - 7.00 10 3/uL Lymphocyte Absolute 3.70 (H) 0.80 - 2.90 10 3/uL Monocytes Absolute 9.25 (H) 0.14 - 0.66 10 3/uL Eosinophils Absolute Manual 4.63 (H) 0.00 - 0.22 10 3/uL Basophil Absolute Manual 1.85 (H) 0.00 - 0.06 10 3/uL Band % Manual 18 (H) 0 - [...] 1+ (Abnormal) None Ovalocytes Occasional (Abnormal) None [place] Cells 1+ (Abnormal) None Tear Drop Cells Occasional (Abnormal) None Toxic Granulation 1+ (Abnormal) None Dohle Bodies 1+ (Abnormal) None CBC W AUTO DIFFERENTIAL Collection Time: 09/21/19 2:13 PM Result Value Ref Range WBC 66.1 (HH) 3.5 - 10.5 10 3/uL RBC 3.65 (L) 4.30 - 5.70 10 6/uL Hemoglobin 11.0 (L) 13.5 - 17.5 g/dL Hematocrit 32.7 (L) 39.0 - 50.0 % MCV 89.6 81.0 - 97.0 fL MCH 30.1 28.0 - 34.0 pg MCHC 33.6 32.0 - 36.0 g/dL Platelet Count 135 (L) 150 - 400 10 3/uL RDW-SD 49.0 36.0 - 50.0 fL RDW-CV 14.8 11.2 - 14.8 % MPV 9.3 9.3 - 12.8 fL nRBC Absolute 0.12 (H) 0 10 3/uL nRBC Auto 0.2 (H) 0 /100 WBC DIFFERENTIAL MANUAL Collection Time: 09/21/19 2:13 PM Result Value Ref Range WBC (corrected for NRBC) 66.1 10 3/uL Total Cell Count 100 Neutrophils Absolute Manual 56.19 (H) 1.60 - 7.00 10 3/uL Lymphocyte Absolute 0.66 (L) 0.80 - 2.90 10 3/uL Monocytes Absolute 4.63 (H) 0.14 - 0.66 10 3/uL Eosinophils Absolute Manual 3.31 (H) 0.00 - 0.22 10 3/uL Band % Manual 28 (H) 0 - [...] Day 5 of his Neupogen. Catheter placement was confirmed per IR note. No changes were noted in Donor History Questionnaire. Donor was stable going into collection. Pre collection Hct and Plt levels were acceptable. Post collection Hct=32.7, Cqi=865 . The collection was well tolerated. The goal for this procedure is 2-4 x 10e6 CD34 cells/kg. Processed volume during procedure was [id number]. Yield of collection was 10.4x10e6 CD34/kg. Goal was reached. Apollo Garcia MD, PhD Tiffanie Seymour Patrick [employer] SUPERVISOR-INTEL ANALYST LAB - CHEMISTRY ORDERABLES [address] [phone] * COLLECT/PROCESS: AUTO-HPC APHERESIS (09/21/2019 7:00 AM BARKER OPERATOR) BLOOD SPECIMEN / Unknown Narrative [facility] - 09/21/2019 7:00 AM BARKER OPERATOR Apollo Garcia MD 09/22/2019 5:04 PM Cellular Therapy Collections Progress Note Marcello [...] this am. No F/C/N/V/D/COOPER/SOB. Allergies Allergen Reactions Adhesive Sensitivity Urticaria and Other Electrodes -- welps where stickers are Also, use paper tape Current Outpatient Medications Medication Sig Dispense Refill acetaminophen (TYLENOL) 325 MG tablet Take 2 tablets by mouth every 6 hours as needed for Fever or Pain Maximum allowable Acetaminophen amount = 4 Grams (4000 mg) / 24 hours. (Patient not taking: Reported on 09/21/2019) acyclovir (ZOVIRAX) 400 MG tablet Take 1 tablet by mouth 2 times daily 60 tablet 11 BABY ASPIRIN PO Take 81 mg by mouth diclofenac sodium EC (VOLTAREN) 75 MG tablet Take 75 mg by mouth 2 times daily docusate sodium (COLACE) 100 MG capsule Take 1 capsule by mouth 2 times daily 60 capsule 0 enoxaparin (LOVENOX) injection Inject 40 mg subcutaneously once daily 30 syringe 2 escitalopram (LEXAPRO) 10 MG tablet Take 1 tablet by mouth once daily 30 tablet 0 ibuprofen (MOTRIN) 600 MG tablet Take 1 tablet by mouth every 6 hours (Patient taking differently: Take 200 mg by mouth every 6 hours ) Lansoprazole (PREVACID PO) Take by mouth as needed lidocaine-prilocaine (EMLA) 2.5-2.5 % cream Apply to port site 30-60 mins before use. ondansetron, disintegrating, (ZOFRAN ODT) 8 MG tablet Dissolve 1 tablet on top of tongue then swallow with saliva every 8 hours as needed for nausea or vomiting oxyCODONE, immediate release, (ROXICODONE) 5 MG tablet Take 1 tablet by mouth every 6 hours as needed for Pain 28 tablet 0 penicillin v potassium (VEETIDS) 250 MG tablet Take 1 tablet by mouth 2 times daily (Patient taking differently: Take 250 mg by mouth 2 times daily Took 500 mg additional per dentist instructions) 60 tablet 5 polyethylene glycol 3350 (MIRALAX) packet Take 17 g by mouth once daily prochlorperazine (COMPAZINE) 10 MG tablet Take 10 mg by mouth every 6 hours as needed Current Facility-Administered Medications Medication Dose Route Frequency Provider Last Rate Last Dose 0.9% NaCl injection 20 mL 20 mL Intracatheter PRN Tiffanie Mcpherson APRN-CNP 20 mL at 09/21/19 1438 calcium gluconate 5 g in 300 mL NS 5 g Intravenous PRN Tiffanie Mcpherson APRN-CNP Stopped at 09/21/19 1350 heparin lock flush injection 300 Units 300 Units Intravenous PRN Tiffanie Mcpherson PRASANNA Seymour 300 Units at 09/21/19 1352 Physical Exam Constitutional: Patient Vitals for the past 24 hrs: BP Temp Temp src Pulse Resp SpO2 Height Weight 09/21/19 1415 133/80 98.9 F Oral 94 18 98 % 09/21/19 1211 143/82 98.3 F Oral 88 18 97 % 09/21/19 1119 144/82 88 18 98 % 09/21/19 1036 130/75 98.6 F Oral 93 18 99 % 09/21/19 0923 128/80 98.1 F Oral 86 18 97 % 09/21/19 0741 129/86 98.1 F Oral 97 18 97 % 1.715 m [...] Range WBC 92.5 (HH) 3.5 - 10.5 10 3/uL RBC 4.26 (L) 4.30 - 5.70 10 6/uL Hemoglobin 12.6 (L) 13.5 - 17.5 g/dL Hematocrit 38.3 (L) 39.0 - 50.0 % MCV 89.9 81.0 - 97.0 fL MCH 29.6 28.0 - 34.0 pg MCHC 32.9 32.0 - 36.0 g/dL Platelet Count 303 150 - 400 10 3/uL RDW-SD 48.9 36.0 - 50.0 fL RDW-CV 14.9 (H) 11.2 - 14.8 % MPV 10.9 9.3 - 12.8 fL nRBC Absolute 0.14 (H) 0 10 3/uL nRBC Auto 0.2 (H) 0 /100 WBC [...] unspecified body region Client Specimen ID # [id number] Number of Markers 2 Flow Cytometry Results Differential Result % Comment Total Viability 99.0 Lymph/[place] Surface Marker Results % Absolute Count (cell/uL) CD34 0.08 73.260 CD45 96.93 88,763.648 Flow Cytometry Interpretation Testing is technical only and does not require an interpretation of results. Disclaimer Test performed at [facility], [address] [place] [address], [address]. This test was developed and its performance [...] Ref Range WBC (corrected for NRBC) 92.5 10 3/uL Total Cell Count 100 Neutrophils Absolute Manual 69.38 (H) 1.60 - 7.00 10 3/uL Lymphocyte Absolute 3.70 (H) 0.80 - 2.90 10 3/uL Monocytes Absolute 9.25 (H) 0.14 - 0.66 10 3/uL Eosinophils Absolute Manual 4.63 (H) 0.00 - 0.22 10 3/uL Basophil Absolute Manual 1.85 (H) 0.00 - 0.06 10 3/uL Band % Manual 18 (H) 0 - [...] 1+ (Abnormal) None Ovalocytes Occasional (Abnormal) None [place] Cells 1+ (Abnormal) None Tear Drop Cells Occasional (Abnormal) None Toxic Granulation 1+ (Abnormal) None Dohle Bodies 1+ (Abnormal) None CBC W AUTO DIFFERENTIAL Collection Time: 09/21/19 2:13 PM Result Value Ref Range WBC 66.1 (HH) 3.5 - 10.5 10 3/uL RBC 3.65 (L) 4.30 - 5.70 10 6/uL Hemoglobin 11.0 (L) 13.5 - 17.5 g/dL Hematocrit 32.7 (L) 39.0 - 50.0 % MCV 89.6 81.0 - 97.0 fL MCH 30.1 28.0 - 34.0 pg MCHC 33.6 32.0 - 36.0 g/dL Platelet Count 135 (L) 150 - 400 10 3/uL RDW-SD 49.0 36.0 - 50.0 fL RDW-CV 14.8 11.2 - 14.8 % MPV 9.3 9.3 - 12.8 fL nRBC Absolute 0.12 (H) 0 10 3/uL nRBC Auto 0.2 (H) 0 /100 WBC DIFFERENTIAL MANUAL Collection Time: 09/21/19 2:13 PM Result Value Ref Range WBC (corrected for NRBC) 66.1 10 3/uL Total Cell Count 100 Neutrophils Absolute Manual 56.19 (H) 1.60 - 7.00 10 3/uL Lymphocyte Absolute 0.66 (L) 0.80 - 2.90 10 3/uL Monocytes Absolute 4.63 (H) 0.14 - 0.66 10 3/uL Eosinophils Absolute Manual 3.31 (H) 0.00 - 0.22 10 3/uL Band % Manual 28 (H) 0 - [...] Day 5 of his Neupogen. Catheter placement was confirmed per IR note. No changes were noted in Donor History Questionnaire. Donor was stable going into collection. Pre collection Hct and Plt levels were acceptable. Post collection Hct=32.7, Phi=508 . The collection was well tolerated. The goal for this procedure is 2-4 x 10e6 CD34 cells/kg. Processed volume during procedure was [id number]. Yield of collection was 10.4x10e6 CD34/kg. Goal was reached. Apollo Garcia MD, PhD Tiffanie Seymour Patrick [employer] SUPERVISOR-INTEL ANALYST LAB - BLOOD BAN K ORDERABLES [address] [phone] * SPECIAL TRAY REQUEST (09/21/2019 7:00 AM BARKER OPERATOR) Only the most recent of2 resultswithin the time period is included. Narrative Apollo Garcia MD - 09/21/2019 7:00 AM BARKER OPERATOR Apollo Garcia MD 09/22/2019 5:04 PM Cellular Therapy Collections Progress Note Marcello [...] this am. No F/C/N/V/D/COOPER/SOB. Allergies Allergen Reactions Adhesive Sensitivity Urticaria and Other Electrodes -- welps where stickers are Also, use paper tape Current Outpatient Medications Medication Sig Dispense Refill acetaminophen (TYLENOL) 325 MG tablet Take 2 tablets by mouth every 6 hours as needed for Fever or Pain Maximum allowable Acetaminophen amount = 4 Grams (4000 mg) / 24 hours. (Patient not taking: Reported on 09/21/2019) acyclovir (ZOVIRAX) 400 MG tablet Take 1 tablet by mouth 2 times daily 60 tablet 11 BABY ASPIRIN PO Take 81 mg by mouth diclofenac sodium EC (VOLTAREN) 75 MG tablet Take 75 mg by mouth 2 times daily docusate sodium (COLACE) 100 MG capsule Take 1 capsule by mouth 2 times daily 60 capsule 0 enoxaparin (LOVENOX) injection Inject 40 mg subcutaneously once daily 30 syringe 2 escitalopram (LEXAPRO) 10 MG tablet Take 1 tablet by mouth once daily 30 tablet 0 ibuprofen (MOTRIN) 600 MG tablet Take 1 tablet by mouth every 6 hours (Patient taking differently: Take 200 mg by mouth every 6 hours ) Lansoprazole (PREVACID PO) Take by mouth as needed lidocaine-prilocaine (EMLA) 2.5-2.5 % cream Apply to port site 30-60 mins before use. ondansetron, disintegrating, (ZOFRAN ODT) 8 MG tablet Dissolve 1 tablet on top of tongue then swallow with saliva every 8 hours as needed for nausea or vomiting oxyCODONE, immediate release, (ROXICODONE) 5 MG tablet Take 1 tablet by mouth every 6 hours as needed for Pain 28 tablet 0 penicillin v potassium (VEETIDS) 250 MG tablet Take 1 tablet by mouth 2 times daily (Patient taking differently: Take 250 mg by mouth 2 times daily Took 500 mg additional per dentist instructions) 60 tablet 5 polyethylene glycol 3350 (MIRALAX) packet Take 17 g by mouth once daily prochlorperazine (COMPAZINE) 10 MG tablet Take 10 mg by mouth every 6 hours as needed Current Facility-Administered Medications Medication Dose Route Frequency Provider Last Rate Last Dose 0.9% NaCl injection 20 mL 20 mL Intracatheter PRN Tiffanie Mcpherson APRN-CNP 20 mL at 09/21/19 1438 calcium gluconate 5 g in 300 mL NS 5 g Intravenous PRN Tiffanie Mcpherson APRN-CNP Stopped at 09/21/19 1350 heparin lock flush injection 300 Units 300 Units Intravenous PRN Tiffanie Mcpherson, [employer]OR-INTEL ANALYST 300 Units at 09/21/19 1352 Physical Exam Constitutional: Patient Vitals for the past 24 hrs: BP Temp Temp src Pulse Resp SpO2 Height Weight 09/21/19 1415 133/80 98.9 F Oral 94 18 98 % 09/21/19 1211 143/82 98.3 F Oral 88 18 97 % 09/21/19 1119 144/82 88 18 98 % 09/21/19 1036 130/75 98.6 F Oral 93 18 99 % 09/21/19 0923 128/80 98.1 F Oral 86 18 97 % 09/21/19 0741 129/86 98.1 F Oral 97 18 97 % 1.715 m [...] Range WBC 92.5 (HH) 3.5 - 10.5 10 3/uL RBC 4.26 (L) 4.30 - 5.70 10 6/uL Hemoglobin 12.6 (L) 13.5 - 17.5 g/dL Hematocrit 38.3 (L) 39.0 - 50.0 % MCV 89.9 81.0 - 97.0 fL MCH 29.6 28.0 - 34.0 pg MCHC 32.9 32.0 - 36.0 g/dL Platelet Count 303 150 - 400 10 3/uL RDW-SD 48.9 36.0 - 50.0 fL RDW-CV 14.9 (H) 11.2 - 14.8 % MPV 10.9 9.3 - 12.8 fL nRBC Absolute 0.14 (H) 0 10 3/uL nRBC Auto 0.2 (H) 0 /100 WBC [...] unspecified body region Client Specimen ID # [id number] Number of Markers 2 Flow Cytometry Results Differential Result % Comment Total Viability 99.0 Lymph/[place] Surface Marker Results % Absolute Count (cell/uL) CD34 0.08 73.260 CD45 96.93 88,763.648 Flow Cytometry Interpretation Testing is technical only and does not require an interpretation of results. Disclaimer Test performed at [facility], [address] [place] [address], [address]. This test was developed and its performance [...] Ref Range WBC (corrected for NRBC) 92.5 10 3/uL Total Cell Count 100 Neutrophils Absolute Manual 69.38 (H) 1.60 - 7.00 10 3/uL Lymphocyte Absolute 3.70 (H) 0.80 - 2.90 10 3/uL Monocytes Absolute 9.25 (H) 0.14 - 0.66 10 3/uL Eosinophils Absolute Manual 4.63 (H) 0.00 - 0.22 10 3/uL Basophil Absolute Manual 1.85 (H) 0.00 - 0.06 10 3/uL Band % Manual 18 (H) 0 - [...] 1+ (Abnormal) None Ovalocytes Occasional (Abnormal) None [place] Cells 1+ (Abnormal) None Tear Drop Cells Occasional (Abnormal) None Toxic Granulation 1+ (Abnormal) None Dohle Bodies 1+ (Abnormal) None CBC W AUTO DIFFERENTIAL Collection Time: 09/21/19 2:13 PM Result Value Ref Range WBC 66.1 (HH) 3.5 - 10.5 10 3/uL RBC 3.65 (L) 4.30 - 5.70 10 6/uL Hemoglobin 11.0 (L) 13.5 - 17.5 g/dL Hematocrit 32.7 (L) 39.0 - 50.0 % MCV 89.6 81.0 - 97.0 fL MCH 30.1 28.0 - 34.0 pg MCHC 33.6 32.0 - 36.0 g/dL Platelet Count 135 (L) 150 - 400 10 3/uL RDW-SD 49.0 36.0 - 50.0 fL RDW-CV 14.8 11.2 - 14.8 % MPV 9.3 9.3 - 12.8 fL nRBC Absolute 0.12 (H) 0 10 3/uL nRBC Auto 0.2 (H) 0 /100 WBC DIFFERENTIAL MANUAL Collection Time: 09/21/19 2:13 PM Result Value Ref Range WBC (corrected for NRBC) 66.1 10 3/uL Total Cell Count 100 Neutrophils Absolute Manual 56.19 (H) 1.60 - 7.00 10 3/uL Lymphocyte Absolute 0.66 (L) 0.80 - 2.90 10 3/uL Monocytes Absolute 4.63 (H) 0.14 - 0.66 10 3/uL Eosinophils Absolute Manual 3.31 (H) 0.00 - 0.22 10 3/uL Band % Manual 28 (H) 0 - [...] Day 5 of his Neupogen. Catheter placement was confirmed per IR note. No changes were noted in Donor History Questionnaire. Donor was stable going into collection. Pre collection Hct and Plt levels were acceptable. Post collection Hct=32.7, Olm=475 . The collection was well tolerated. The goal for this procedure is 2-4 x 10e6 CD34 cells/kg. Processed volume during procedure was [id number]. Yield of collection was 10.4x10e6 CD34/kg. Goal was reached. Apollo Garcia MD, PhD Bill Ferrera MD NURSING - DIET * DAILY WEIGHTS (09/21/2019 7:00 AM BARKER OPERATOR) Narrative Apollo Garcia MD - 09/21/2019 7:00 AM BARKER OPERATOR Apollo Garcia MD 09/22/2019 5:04 PM Cellular Therapy Collections Progress Note Marcello [...] this am. No F/C/N/V/D/COOPER/SOB. Allergies Allergen Reactions Adhesive Sensitivity Urticaria and Other Electrodes -- welps where stickers are Also, use paper tape Current Outpatient Medications Medication Sig Dispense Refill acetaminophen (TYLENOL) 325 MG tablet Take 2 tablets by mouth every 6 hours as needed for Fever or Pain Maximum allowable Acetaminophen amount = 4 Grams (4000 mg) / 24 hours. (Patient not taking: Reported on 09/21/2019) acyclovir (ZOVIRAX) 400 MG tablet Take 1 tablet by mouth 2 times daily 60 tablet 11 BABY ASPIRIN PO Take 81 mg by mouth diclofenac sodium EC (VOLTAREN) 75 MG tablet Take 75 mg by mouth 2 times daily docusate sodium (COLACE) 100 MG capsule Take 1 capsule by mouth 2 times daily 60 capsule 0 enoxaparin (LOVENOX) injection Inject 40 mg subcutaneously once daily 30 syringe 2 escitalopram (LEXAPRO) 10 MG tablet Take 1 tablet by mouth once daily 30 tablet 0 ibuprofen (MOTRIN) 600 MG tablet Take 1 tablet by mouth every 6 hours (Patient taking differently: Take 200 mg by mouth every 6 hours ) Lansoprazole (PREVACID PO) Take by mouth as needed lidocaine-prilocaine (EMLA) 2.5-2.5 % cream Apply to port site 30-60 mins before use. ondansetron, disintegrating, (ZOFRAN ODT) 8 MG tablet Dissolve 1 tablet on top of tongue then swallow with saliva every 8 hours as needed for nausea or vomiting oxyCODONE, immediate release, (ROXICODONE) 5 MG tablet Take 1 tablet by mouth every 6 hours as needed for Pain 28 tablet 0 penicillin v potassium (VEETIDS) 250 MG tablet Take 1 tablet by mouth 2 times daily (Patient taking differently: Take 250 mg by mouth 2 times daily Took 500 mg additional per dentist instructions) 60 tablet 5 polyethylene glycol 3350 (MIRALAX) packet Take 17 g by mouth once daily prochlorperazine (COMPAZINE) 10 MG tablet Take 10 mg by mouth every 6 hours as needed Current Facility-Administered Medications Medication Dose Route Frequency Provider Last Rate Last Dose 0.9% NaCl injection 20 mL 20 mL Intracatheter PRN Tiffanie Mcpherson APRN-CNP 20 mL at 09/21/19 1438 calcium gluconate 5 g in 300 mL NS 5 g Intravenous PRN Tiffanie Mcpherson APRN-CNP Stopped at 09/21/19 1350 heparin lock flush injection 300 Units 300 Units Intravenous PRN Tiffanie Mcpherson APRN-CNP 300 Units at 09/21/19 1352 Physical Exam Constitutional: Patient Vitals for the past 24 hrs: BP Temp Temp src Pulse Resp SpO2 Height Weight 09/21/19 1415 133/80 98.9 F Oral 94 18 98 % 09/21/19 1211 143/82 98.3 F Oral 88 18 97 % 09/21/19 1119 144/82 88 18 98 % 09/21/19 1036 130/75 98.6 F Oral 93 18 99 % 09/21/19 0923 128/80 98.1 F Oral 86 18 97 % 09/21/19 0741 129/86 98.1 F Oral 97 18 97 % 1.715 m [...] Range WBC 92.5 (HH) 3.5 - 10.5 10 3/uL RBC 4.26 (L) 4.30 - 5.70 10 6/uL Hemoglobin 12.6 (L) 13.5 - 17.5 g/dL Hematocrit 38.3 (L) 39.0 - 50.0 % MCV 89.9 81.0 - 97.0 fL MCH 29.6 28.0 - 34.0 pg MCHC 32.9 32.0 - 36.0 g/dL Platelet Count 303 150 - 400 10 3/uL RDW-SD 48.9 36.0 - 50.0 fL RDW-CV 14.9 (H) 11.2 - 14.8 % MPV 10.9 9.3 - 12.8 fL nRBC Absolute 0.14 (H) 0 10 3/uL nRBC Auto 0.2 (H) 0 /100 WBC [...] unspecified body region Client Specimen ID # [id number] Number of Markers 2 Flow Cytometry Results Differential Result % Comment Total Viability 99.0 Lymph/[place] Surface Marker Results % Absolute Count (cell/uL) CD34 0.08 73.260 CD45 96.93 88,763.648 Flow Cytometry Interpretation Testing is technical only and does not require an interpretation of results. Disclaimer Test performed at [facility], [address] [place] [address], [address]. This test was developed and its performance [...] Ref Range WBC (corrected for NRBC) 92.5 10 3/uL Total Cell Count 100 Neutrophils Absolute Manual 69.38 (H) 1.60 - 7.00 10 3/uL Lymphocyte Absolute 3.70 (H) 0.80 - 2.90 10 3/uL Monocytes Absolute 9.25 (H) 0.14 - 0.66 10 3/uL Eosinophils Absolute Manual 4.63 (H) 0.00 - 0.22 10 3/uL Basophil Absolute Manual 1.85 (H) 0.00 - 0.06 10 3/uL Band % Manual 18 (H) 0 - [...] Range WBC 66.1 (HH) 3.5 - 10.5 10 3/uL RBC 3.65 (L) 4.30 - 5.70 10 6/uL Hemoglobin 11.0 (L) 13.5 - 17.5 g/dL Hematocrit 32.7 (L) 39.0 - 50.0 % MCV 89.6 81.0 - 97.0 fL MCH 30.1 28.0 - 34.0 pg MCHC 33.6 32.0 - 36.0 g/dL Platelet Count 135 (L) 150 - 400 10 3/uL RDW-SD 49.0 36.0 - 50.0 fL RDW-CV 14.8 11.2 - 14.8 % MPV 9.3 9.3 - 12.8 fL nRBC Absolute 0.12 (H) 0 10 3/uL nRBC Auto 0.2 (H) 0 /100 WBC DIFFERENTIAL MANUAL Collection Time: 09/21/19 2:13 PM Result Value Ref Range WBC (corrected for NRBC) 66.1 10 3/uL Total Cell Count 100 Neutrophils Absolute Manual 56.19 (H) 1.60 - 7.00 10 3/uL Lymphocyte Absolute 0.66 (L) 0.80 - 2.90 10 3/uL Monocytes Absolute 4.63 (H) 0.14 - 0.66 10 3/uL Eosinophils Absolute Manual 3.31 (H) 0.00 - 0.22 10 3/uL Band % Manual 28 (H) 0 - [...] Day 5 of his Neupogen. Catheter placement was confirmed per IR note. No changes were noted in Donor History Questionnaire. Donor was stable going into collection. Pre collection Hct and Plt levels were acceptable. Post collection Hct=32.7, Rmo=092 . The collection was well tolerated. The goal for this procedure is 2-4 x 10e6 CD34 cells/kg. Processed volume during procedure was [id number]. Yield of collection was 10.4x10e6 CD34/kg. Goal was reached. Apollo Garcia MD, PhD Tiffanie Mcpherson APRN-[facility] NURSING - VITAL SIGNS AND ASSESSMENT * AMBULATE / UP AD JAKE (09/21/2019 7:00 AM BARKER OPERATOR) Narrative Apollo Garcia MD - 09/21/2019 7:00 AM BARKER OPERATOR Apollo Garcia MD 09/22/2019 5:04 PM Cellular Therapy Collections Progress Note Marcello [...] this am. No F/C/N/V/D/COOPER/SOB. Allergies Allergen Reactions Adhesive Sensitivity Urticaria and Other Electrodes -- welps where stickers are Also, use paper tape Current Outpatient Medications Medication Sig Dispense Refill acetaminophen (TYLENOL) 325 MG tablet Take 2 tablets by mouth every 6 hours as needed for Fever or Pain Maximum allowable Acetaminophen amount = 4 Grams (4000 mg) / 24 hours. (Patient not taking: Reported on 09/21/2019) acyclovir (ZOVIRAX) 400 MG tablet Take 1 tablet by mouth 2 times daily 60 tablet 11 BABY ASPIRIN PO Take 81 mg by mouth diclofenac sodium EC (VOLTAREN) 75 MG tablet Take 75 mg by mouth 2 times daily docusate sodium (COLACE) 100 MG capsule Take 1 capsule by mouth 2 times daily 60 capsule 0 enoxaparin (LOVENOX) injection Inject 40 mg subcutaneously once daily 30 syringe 2 escitalopram (LEXAPRO) 10 MG tablet Take 1 tablet by mouth once daily 30 tablet 0 ibuprofen (MOTRIN) 600 MG tablet Take 1 tablet by mouth every 6 hours (Patient taking differently: Take 200 mg by mouth every 6 hours ) Lansoprazole (PREVACID PO) Take by mouth as needed lidocaine-prilocaine (EMLA) 2.5-2.5 % cream Apply to port site 30-60 mins before use. ondansetron, disintegrating, (ZOFRAN ODT) 8 MG tablet Dissolve 1 tablet on top of tongue then swallow with saliva every 8 hours as needed for nausea or vomiting oxyCODONE, immediate release, (ROXICODONE) 5 MG tablet Take 1 tablet by mouth every 6 hours as needed for Pain 28 tablet 0 penicillin v potassium (VEETIDS) 250 MG tablet Take 1 tablet by mouth 2 times daily (Patient taking differently: Take 250 mg by mouth 2 times daily Took 500 mg additional per dentist instructions) 60 tablet 5 polyethylene glycol 3350 (MIRALAX) packet Take 17 g by mouth once daily prochlorperazine (COMPAZINE) 10 MG tablet Take 10 mg by mouth every 6 hours as needed Current Facility-Administered Medications Medication Dose Route Frequency Provider Last Rate Last Dose 0.9% NaCl injection 20 mL 20 mL Intracatheter PRN Tiffanie Mcpherson APRN-CNP 20 mL at 09/21/19 1438 calcium gluconate 5 g in 300 mL NS 5 g Intravenous PRN Tiffanie Mcpherson APRN-CNP Stopped at 09/21/19 1350 heparin lock flush injection 300 Units 300 Units Intravenous PRN Tiffanie Mcpherson APRN-CNP 300 Units at 09/21/19 1352 Physical Exam Constitutional: Patient Vitals for the past 24 hrs: BP Temp Temp src Pulse Resp SpO2 Height Weight 09/21/19 1415 133/80 98.9 F Oral 94 18 98 % 09/21/19 1211 143/82 98.3 F Oral 88 18 97 % 09/21/19 1119 144/82 88 18 98 % 09/21/19 1036 130/75 98.6 F Oral 93 18 99 % 02/18/20 0923 128/80 98.1 F Oral 86 18 97 % 09/21/19 0741 129/86 98.1 F Oral 97 18 97 % 1.715 m [...] Range WBC 92.5 (HH) 3.5 - 10.5 10 3/uL RBC 4.26 (L) 4.30 - 5.70 10 6/uL Hemoglobin 12.6 (L) 13.5 - 17.5 g/dL Hematocrit 38.3 (L) 39.0 - 50.0 % MCV 89.9 81.0 - 97.0 fL MCH 29.6 28.0 - 34.0 pg MCHC 32.9 32.0 - 36.0 g/dL Platelet Count 303 150 - 400 10 3/uL RDW-SD 48.9 36.0 - 50.0 fL RDW-CV 14.9 (H) 11.2 - 14.8 % MPV 10.9 9.3 - 12.8 fL nRBC Absolute 0.14 (H) 0 10 3/uL nRBC Auto 0.2 (H) 0 /100 WBC [...] unspecified body region Client Specimen ID # [id number] Number of Markers 2 Flow Cytometry Results Differential Result % Comment Total Viability 99.0 Lymph/[place] Surface Marker Results % Absolute Count (cell/uL) CD34 0.08 73.260 CD45 96.93 88,763.648 Flow Cytometry Interpretation Testing is technical only and does not require an interpretation of results. Disclaimer Test performed at [facility], [address] [place] [address], [address]. This test was developed and its performance [...] Ref Range WBC (corrected for NRBC) 92.5 10 3/uL Total Cell Count 100 Neutrophils Absolute Manual 69.38 (H) 1.60 - 7.00 10 3/uL Lymphocyte Absolute 3.70 (H) 0.80 - 2.90 10 3/uL Monocytes Absolute 9.25 (H) 0.14 - 0.66 10 3/uL Eosinophils Absolute Manual 4.63 (H) 0.00 - 0.22 10 3/uL Basophil Absolute Manual 1.85 (H) 0.00 - 0.06 10 3/uL Band % Manual 18 (H) 0 - [...] Range WBC 66.1 (HH) 3.5 - 10.5 10 3/uL RBC 3.65 (L) 4.30 - 5.70 10 6/uL Hemoglobin 11.0 (L) 13.5 - 17.5 g/dL Hematocrit 32.7 (L) 39.0 - 50.0 % MCV 89.6 81.0 - 97.0 fL MCH 30.1 28.0 - 34.0 pg MCHC 33.6 32.0 - 36.0 g/dL Platelet Count 135 (L) 150 - 400 10 3/uL RDW-SD 49.0 36.0 - 50.0 fL RDW-CV 14.8 11.2 - 14.8 % MPV 9.3 9.3 - 12.8 fL nRBC Absolute 0.12 (H) 0 10 3/uL nRBC Auto 0.2 (H) 0 /100 WBC DIFFERENTIAL MANUAL Collection Time: 09/21/19 2:13 PM Result Value Ref Range WBC (corrected for NRBC) 66.1 10 3/uL Total Cell Count 100 Neutrophils Absolute Manual 56.19 (H) 1.60 - 7.00 10 3/uL Lymphocyte Absolute 0.66 (L) 0.80 - 2.90 10 3/uL Monocytes Absolute 4.63 (H) 0.14 - 0.66 10 3/uL Eosinophils Absolute Manual 3.31 (H) 0.00 - 0.22 10 3/uL Band % Manual 28 (H) 0 - [...] Day 5 of his Neupogen. Catheter placement was confirmed per IR note. No changes were noted in Donor History Questionnaire. Donor was stable going into collection. Pre collection Hct and Plt levels were acceptable. Post collection Hct=32.7, Ulm=785 . The collection was well tolerated. The goal for this procedure is 2-4 x 10e6 CD34 cells/kg. Processed volume during procedure was [id number]. Yield of collection was 10.4x10e6 CD34/kg. Goal was reached. Apollo Garcia MD, PhD Tiffanie Seymour Patrick [employer] SUPERVISOR-INTEL ANALYST NURSING - ACTIV ITY * DIET REGULAR (09/21/2019 7:00 AM BARKER OPERATOR) Narrative [facility] - 09/21/2019 7:00 AM BARKER OPERATOR Apollo Garcia MD 09/22/2019 5:04 PM Cellular Therapy Collections Progress Note Marcello Mansfield Mindy 09/21/2019 Diagnosis: 1. B-cell lymphoma, unspecified B-cell [...] this am. No F/C/N/V/D/COOPER/SOB. Allergies Allergen Reactions Adhesive Sensitivity Urticaria and Other Electrodes -- welps where stickers are Also, use paper tape Current Outpatient Medications Medication Sig Dispense Refill acetaminophen (TYLENOL) 325 MG tablet Take 2 tablets by mouth every 6 hours as needed for Fever or Pain Maximum allowable Acetaminophen amount = 4 Grams (4000 mg) / 24 hours. (Patient not taking: Reported on 09/21/2019) acyclovir (ZOVIRAX) 400 MG tablet Take 1 tablet by mouth 2 times daily 60 tablet 11 BABY ASPIRIN PO Take 81 mg by mouth diclofenac sodium EC (VOLTAREN) 75 MG tablet Take 75 mg by mouth 2 times daily docusate sodium (COLACE) 100 MG capsule Take 1 capsule by mouth 2 times daily 60 capsule 0 enoxaparin (LOVENOX) injection Inject 40 mg subcutaneously once daily 30 syringe 2 escitalopram (LEXAPRO) 10 MG tablet Take 1 tablet by mouth once daily 30 tablet 0 ibuprofen (MOTRIN) 600 MG tablet Take 1 tablet by mouth every 6 hours (Patient taking differently: Take 200 mg by mouth every 6 hours ) Lansoprazole (PREVACID PO) Take by mouth as needed lidocaine-prilocaine (EMLA) 2.5-2.5 % cream Apply to port site 30-60 mins before use. ondansetron, disintegrating, (ZOFRAN ODT) 8 MG tablet Dissolve 1 tablet on top of tongue then swallow with saliva every 8 hours as needed for nausea or vomiting oxyCODONE, immediate release, (ROXICODONE) 5 MG tablet Take 1 tablet by mouth every 6 hours as needed for Pain 28 tablet 0 penicillin v potassium (VEETIDS) 250 MG tablet Take 1 tablet by mouth 2 times daily (Patient taking differently: Take 250 mg by mouth 2 times daily Took 500 mg additional per dentist instructions) 60 tablet 5 polyethylene glycol 3350 (MIRALAX) packet Take 17 g by mouth once daily prochlorperazine (COMPAZINE) 10 MG tablet Take 10 mg by mouth every 6 hours as needed Current Facility-Administered Medications Medication Dose Route Frequency Provider Last Rate Last Dose 0.9% NaCl injection 20 mL 20 mL Intracatheter PRN Tiffanie Mcpherson APRN-CNP 20 mL at 09/21/19 1438 calcium gluconate 5 g in 300 mL NS 5 g Intravenous PRN Tiffanie Mcpherson APRN-CNP Stopped at 09/21/19 1350 heparin lock flush injection 300 Units 300 Units Intravenous PRN Tiffanie Mcpherson APRN-CNP 300 Units at 09/21/19 1352 Physical Exam Constitutional: Patient Vitals for the past 24 hrs: BP Temp Temp src Pulse Resp SpO2 Height Weight 09/21/19 1415 133/80 98.9 F Oral 94 18 98 % 09/21/19 1211 143/82 98.3 F Oral 88 18 97 % 09/21/19 1119 144/82 88 18 98 % 09/21/19 1036 130/75 98.6 F Oral 93 18 99 % 09/21/19 0923 128/80 98.1 F Oral 86 18 97 % 09/21/19 0741 129/86 98.1 F Oral 97 18 97 % 1.715 m [...] Range WBC 92.5 (HH) 3.5 - 10.5 10 3/uL RBC 4.26 (L) 4.30 - 5.70 10 6/uL Hemoglobin 12.6 (L) 13.5 - 17.5 g/dL Hematocrit 38.3 (L) 39.0 - 50.0 % MCV 89.9 81.0 - 97.0 fL MCH 29.6 28.0 - 34.0 pg MCHC 32.9 32.0 - 36.0 g/dL Platelet Count 303 150 - 400 10 3/uL RDW-SD 48.9 36.0 - 50.0 fL RDW-CV 14.9 (H) 11.2 - 14.8 % MPV 10.9 9.3 - 12.8 fL nRBC Absolute 0.14 (H) 0 10 3/uL nRBC Auto 0.2 (H) 0 /100 WBC [...] unspecified body region Client Specimen ID # [id number] Number of Markers 2 Flow Cytometry Results Differential Result % Comment Total Viability 99.0 Lymph/[place] Region Surface Marker Results % Absolute Count (cell/uL) CD34 0.08 73.260 CD45 96.93 88,763.648 Flow Cytometry Interpretation Testing is technical only and does not require an interpretation of results. Disclaimer Test performed at [facility], [address] [place] [address], [address]. This test was developed and its performance [...] Ref Range WBC (corrected for NRBC) 92.5 10 3/uL Total Cell Count 100 Neutrophils Absolute Manual 69.38 (H) 1.60 - 7.00 10 3/uL Lymphocyte Absolute 3.70 (H) 0.80 - 2.90 10 3/uL Monocytes Absolute 9.25 (H) 0.14 - 0.66 10 3/uL Eosinophils Absolute Manual 4.63 (H) 0.00 - 0.22 10 3/uL Basophil Absolute Manual 1.85 (H) 0.00 - 0.06 10 3/uL Band % Manual 18 (H) 0 - [...] 1+ (Abnormal) None Ovalocytes Occasional (Abnormal) None [place] Cells 1+ (Abnormal) None Tear Drop Cells Occasional (Abnormal) None Toxic Granulation 1+ (Abnormal) None Dohle Bodies 1+ (Abnormal) None CBC W AUTO DIFFERENTIAL Collection Time: 09/21/19 2:13 PM Result Value Ref Range WBC 66.1 (HH) 3.5 - 10.5 10 3/uL RBC 3.65 (L) 4.30 - 5.70 10 6/uL Hemoglobin 11.0 (L) 13.5 - 17.5 g/dL Hematocrit 32.7 (L) 39.0 - 50.0 % MCV 89.6 81.0 - 97.0 fL MCH 30.1 28.0 - 34.0 pg MCHC 33.6 32.0 - 36.0 g/dL Platelet Count 135 (L) 150 - 400 10 3/uL RDW-SD 49.0 36.0 - 50.0 fL RDW-CV 14.8 11.2 - 14.8 % MPV 9.3 9.3 - 12.8 fL nRBC Absolute 0.12 (H) 0 10 3/uL nRBC Auto 0.2 (H) 0 /100 WBC DIFFERENTIAL MANUAL Collection Time: 09/21/19 2:13 PM Result Value Ref Range WBC (corrected for NRBC) 66.1 10 3/uL Total Cell Count 100 Neutrophils Absolute Manual 56.19 (H) 1.60 - 7.00 10 3/uL Lymphocyte Absolute 0.66 (L) 0.80 - 2.90 10 3/uL Monocytes Absolute 4.63 (H) 0.14 - 0.66 10 3/uL Eosinophils Absolute Manual 3.31 (H) 0.00 - 0.22 10 3/uL Band % Manual 28 (H) 0 - [...] Day 5 of his Neupogen. Catheter placement was confirmed per IR note. No changes were noted in Donor History Questionnaire. Donor was stable going into collection. Pre collection Hct and Plt levels were acceptable. Post collection Hct=32.7, Xhi=256 . The collection was well tolerated. The goal for this procedure is 2-4 x 10e6 CD34 cells/kg. Processed volume during procedure was 61520xP. Yield of collection was 10.4x10e6 CD34/kg. Goal was reached. Apollo Garcia MD, PhD Tiffanie Mcpherson [employer] SUPERVISOR-INTEL ANALYST DIET ORDERABLES [facility] * IR CENTRAL LINE REMOVAL (09/17/2019 10:52 AM BARKER OPERATOR) Anatomical Region Laterality Modality X-Ray Angiograph y 09/17/2019 4:03 PM BARKER OPERATOR Narrative 09/17/2019 4:09 PM BARKER OPERATOR This is an Interventional Nephrology procedure performed on September 17, 2019 Acidity Tester: Tom Lamar Inlayer Silver : Lizandro Murdock and Darwin Hughes Attending: [...] suite and placed on the fluoroscopy table. The skin of the right and left neck [...] was 10:53 during which I was present. Total physician intra-service sedation time was 32 minutes. For details on pre-moderate sedation and post-moderate sedation patient evaluation, please review the evaluation forms in [facility]. For details on monitored clinical parameters during the intra-service sedation time, please review the procedure nurse documentation in [facility]. Under real time ultrasound guidance, the left internal jugular vein was accessed with a micropuncture needle, a coates scale image was recorded and a microfilament wire was advanced to the central veins under fluoroscopic guidance. This allowed the placement of a 5 Portuguese trocar which in turn allowed the placement of a 0.035 guidewire which was manipulated into the IVC. An exit site was chosen on the chest wall and anesthetized with lidocaine. Using a metal tunneling device, a 23 cm Altamirano triple-lumen central venous catheter was brought through a subcutaneous tunnel to the venotomy incision and prepared for insertion. Serial dilators were utilized to create a track to the jugular vein sufficient to accommodate a peel-away sheath which was inserted over the guidewire and the inner stylet was removed. The catheter was inserted through the sheath which was then removed. The catheter was adjusted for length under fluoroscopy such that the tip was at the junction of the SVC and RA. All lumens flushed easily and were locked with heparin. The catheter was sutured in place with 3-0 Vicryl and a CHG dressing and StatLock were placed. The venotomy incision was closed with a 3-0 [...] was electronically signed by DARWIN HUGHES M.D. on 09/17/2019 4:09 PM . Tiffanie Mcpherson GROUN[employer]W SUPERVISOR-INTEL ANALYST IR ORDERABLES * COTININE, URINE (09/09/2019 2:25 PM BARKER OPERATOR) Cotinine Urine Negative Cutoff=30 0 ng/mL 09/10/2019 7:07 PM BARKER OPERATOR [facility] ([facility]) Drug Screen Comment Comment 09/10 7:07 PM BARKER OPERATOR [facility] ([facility]) Comment: This analysis is performed by immunoassay. Positive findings are unconfirmed analytical test results; if results do not support expected clinical finding, confirmation by an alternate methodology is recommended. Patient metabolic variables, specific drug chemistry, and specimen characteristics can affect test outcome. Technical consultation is available at [email or web address], or call toll free [phone]. Urine URINE SPECIMEN OBTAINED BY CLEAN CATCH PROCEDURE / Unknown Collection / Unknown 09/09/2019 2:25 PM BARKER OPERATOR 09/09/2019 2:25 PM BARKER OPERATOR Narrative [facility] ([facility]) - 09/10/2019 7:07 PM BARKER OPERATOR Performed at: - [facility] [address] [place], [place] [id number] Motor Brakeman: John Escalera PhD, Phone: [phone] Performed at: - [facility] [address] [place], [place] [id number] Motor Brakeman: Constantino Linares PhD, Phone: [phone] Tiffanie Seymour Patrick GR[employer]W SUPERVISOR-INTEL ANALYST LAB - URINE LINDA MIRIAN ORDERABLES [facility] ([facility]) [address] [place] [address] * (ABNORMAL) URINALYSIS W/MICROSCOPIC NO CULTURE (09/09/2019 2:10 PM BARKER OPERATOR) Color UA Yellow Straw, Yellow, Colorless 09/09/2019 2:19 PM [facility] Clarity UA Clear Clear, Slt Cloudy 09/09/2019 2:19 PM [facility] Specific [place] UA 1.017 1.005 - 1.030 09/09/2019 2:19 PM [facility] pH UA 5.0 5.0 - 8.0 pH 09/09/2019 2:19 PM [facility] Protein UA Negative Negative mg/dL 09/09/2019 2:19 PM [facility] Glucose UA Negative Negative mg/dL 09/09/2019 2:19 PM [facility] Ketone UA Negative Negative mg/dL 09/09/2019 2:19 PM [facility] Bilirubin UA Negative Negative mg/dL 09/09/2019 2:19 PM [facility] Blood UA Negative Negative 09/09/2019 2:19 PM [facility] Nitrite UA Negative Negative 09/09/2019 2:19 PM [facility] Leukocyte Esterase Negative Negative 09/09/2019 2:19 PM [facility] Urobilinogen UA Negative Negative mg/dL 09/09/2019 2:19 PM [facility] RBC UA 0-2 None Seen, 0-2, 3-5 /HPF 09/09/2019 2:19 PM [facility] WBC UA 0-5 None Seen, 0-5 /HPF 09/09/2019 2:19 PM [facility] Bacteria UA Trace None, Trace /HPF 09/09/2019 2:19 PM [facility] Squamous Epithelial Cells UA 0-2 None Seen, 0-2 /HPF 09/09/2019 2:19 PM [facility] Mucus UA 1+ None, 1+ /LPF 09/09/2019 2:19 PM [facility] Hyaline Casts UA 3-5(A) None Seen, 0-2 /LPF 09/09/2019 2:19 PM [facility] Urine URINE SPECIMEN OBTAINED BY CLEAN CATCH PROCEDURE / Unknown Collection / Unknown 09/09/2019 2:10 PM BARKER OPERATOR 09/09/2019 2:10 PM BARKER OPERATOR Narrative [facility] - 09/09/2019 2:19 PM BARKER OPERATOR Lara Buss GROUNDS CREW SUPERVISOR-INTEL ANALYST LAB - URINALYSI S ORDERABLES Performing Organization Address City/State/[facility] Co de Phone Number [facility] [address] [place] [address] * (ABNORMAL) HERPES SIMPLEX 1+2 AB IGG SPEC RFLX HSV2 (09/09/2019 12:42 PM BARKER OPERATOR) Only the most recent of2 resultswithin the time period is included. Herpes Simplex Virus I Antibody IgG Type Specific Index 9.65(H) 0.00 - 0.90 index 09/10/2019 9:09 AM BARKER OPERATOR [facility] ([facility]) Comment: Negative <0.91 Equivocal 0.91 - 1.09 Positive >1.09 Note: Negative indicates no antibodies detected to HSV-1. Equivocal may suggest early infection. If clinically appropriate, retest at later date. Positive indicates antibodies detected to HSV-1. Herpes Simplex Virus 2 Antibody IgG Type Specific <0.91 0.00 - 0.90 index 09/10/2019 9:09 AM BARKER OPERATOR [facility] ([facility]) Comment: Negative <0.91 Equivocal 0.91 - 1.09 Positive >1.09 Note: Negative indicates no antibodies detected to HSV-2. Equivocal may suggest early infection. If clinically appropriate, retest at later date. Positive indicates antibodies detected to HSV-2. Blood BLOOD SPECIMEN / Unknown Venipuncture / Unknown 09/09/2019 12:42 PM BARKER OPERATOR 09/09/2019 12:51 PM BARKER OPERATOR Narrative [facility] ([facility]) - 09/10/2019 9:09 AM BARKER OPERATOR Performed at: [address] [place] [id number] Motor Brakeman: Constantino Linares PhD, Phone: [phone] Lara Patrick GROUNDS CREW SUPERVISOR-[facility] LAB - SEROLOGY ORDERABLES Performing Organization Address City/State/[facility] Co de Phone Number [facility] ([facility]) [address] [place] [address] * (ABNORMAL) DONOR PANEL [id number] (09/09/2019 12:42 PM BARKER OPERATOR) Donor Hepatitis B Surface Antigen Negative Negative 09/12/2019 11:07 AM BARKER OPERATOR [facility] ([facility]) Comment:Test performed with Bartholomew Prism HBsAg kit. Donor Hepatitis B Core Virus Antibody Total Negative Negative 09/12/2019 11:07 AM BARKER OPERATOR [facility] ([facility]) Comment:Test performed with Bartholomew Prism HBcore kit. Donor Hepatitis C Antibody Negative Negative 09/12/2019 11:07 AM BARKER OPERATOR [facility] ([facility]) Comment:Test performed with Bartholomew Prism HCV kit. Donor Syphilis (T pallidum) Non Reactive Non Reactive 09/12/2019 11:07 AM BARKER OPERATOR [facility] ([facility]) Comment:Test performed with Hot Potato PK TP kit. Donor Cytomegalovirus Total Antibody Reactive(A) Non Reactive 09/12/2019 11:07 AM BARKER OPERATOR [facility] ([facility]) Comment:Test performed with Bloodhound Capture-CMV IgG and IgM kit. Donor HIV-1/O/2 Antibody Negative Negative 09/12/2019 11:07 AM BARKER OPERATOR [facility] ([facility]) Comment:Test performed with Bartholomew Prism HIV O Plus kit. Donor HIV-1/HCV/HBV Comment Non Reactive 09/12/2019 11:07 AM BARKER OPERATOR [facility] ([facility]) Comment: Non-Reactive for HIV-1 and HIV-2 RNA Non-Reactive for HCV RNA Non-Reactive for HBV DNA Test performed with Bernard MPX kit. Donor HTLV-I/II Antibodies Qual Negative Negative 09/12/2019 11:07 AM BARKER OPERATOR [facility] ([facility]) Comment:Test performed with Bartholomew Prism HTLV-I/HTLV-II assay. Donor Zika Virus MEL Assay Non Reactive Non Reactive 09/12/2019 11:07 AM BARKER OPERATOR [facility] ([facility]) Comment:Test performed with Bernard Zika kit. Donor WNV MEL Assay Non Reactive Non Reactive 09/12/2019 11:07 AM BARKER OPERATOR [facility] ([facility]) Comment:Test performed with Bernard WNV kit. Donor T cruzi (Chagas) Non Reactive Non Reactive 09/12/2019 11:07 AM BARKER OPERATOR [facility] ([facility]) Comment:Test performed with Bartholomew Prism Chagas assay. Blood BLOOD SPECIMEN / Unknown Venipuncture / Unknown 09/09/2019 12:42 PM BARKER OPERATOR 09/09/2019 2:36 PM BARKER OPERATOR Narrative [facility] ([facility]) - 09/12/2019 11:07 AM BARKER OPERATOR Performed at: [facility] [employer] [address] [id number] Motor Brakeman: Rosalia Parra PhD, Phone: [phone] Tiffanie Mcpherson GROUNDS CREW SUPERVISOR-INTEL ANALYST LAB - CHEMISTRY ORDERABLES [facility] ([facility]) [address] [place] [address] * QUANTIFERON-TB GOLD PLUS 4-TUBE (09/09/2019 12:42 PM BARKER OPERATOR) Only the most recent of2 resultswithin the time period is included. [facility] QuantiFERON Criteria Comment 09/13/2019 12:06 AM BARKER OPERATOR [facility] ([facility]) Comment: The QuantiFERON-TB Gold Plus result is determined by subtracting the Nil value from either TB antigen (Ag) tube. The mitogen tube serves as a control for the test. QuantiFERON TB1 Ag Value 0.25 IU/mL 09/13/2019 12:06 AM [facility] ([facility]) QuantiFERON TB2 Ag Value 0.09 IU/mL 09/13/2019 12:06 AM BARKER OPERATOR [facility] ([facility]) QuantiFERON Nil Value 0.03 IU/mL 09/13/2019 12:06 AM BARKER OPERATOR [facility] ([facility]) QuantiFERON Mitogen Value >10.00 IU/mL 09/13/2019 12:06 AM BARKER OPERATOR [facility] ([facility]) QuantiFERON-TB Gold Plus Negative Negative 09/13/2019 12:06 AM [facility] ([facility]) Comment: The specimen received for QuantiFERON testing was incubated by the ordering institution. Specific procedures outlined in our Directory of Services and in the package insert for the QuantiFERON Gold (In Tube) test must be followed to enable for proper stimulation of cells for the production of interferon gamma. Blood BLOOD SPECIMEN / Unknown Venipuncture / Unknown 09/09/2019 12:42 PM BARKER OPERATOR 09/09/2019 1:20 PM BARKER OPERATOR Narrative [facility] ([facility]) - 09/13/2019 12:06 AM BARKER OPERATOR Performed at: [address] [place] [address] [address] [place], [place] [id number] Motor Brakeman: Constantino Linares PhD, Phone: [phone] Tiffanie Mcpherson [facility] LAB - CHEMISTRY ORDERABLES [facility] ([facility]) [address] [place] [address] * URIC ACID BLOOD (09/09/2019 12:42 PM BARKER OPERATOR) Only the most recent of2 resultswithin the time period is included. [facility] Uric Acid 6.4 2.6 - 7.2 mg/dL 09/09/2019 1:26 PM BARKER OPERATOR [facility] Blood BLOOD SPECIMEN / Unknown Venipuncture / Unknown 09/09/2019 12:42 PM BARKER OPERATOR 09/09/2019 12:50 PM BARKER OPERATOR Tiffanie Mcpherson [facility] LAB - CHEMISTRY ORDERABLES [place] [id number] [address] [phone] * ISA-JAUN VIRUS ANTIBODY TO VCA IGM (09/09/2019 12:42 PM BARKER OPERATOR) Pathologist [facility] Isa-Juan Virus Antibody IgM Viral Capsid Antigen <10.0 0.0 - 43.9 U/mL 09/10/2019 4:34 PM BARKER OPERATOR [facility] ([facility]) Comment: INTERPRETIVE INFORMATION: Isa-Juan Virus Antibody to Viral Capsid Antigen, IgM 35.9 U/mL or less.......Not Detected 36.0-43.9 U/mL..........Indeterminate - Repeat testing in 10-14 days may be helpful. 44.0 U/mL or greater....Detected Performed by [employer], [address] [place] [address] www.[email or web address], Toribio Elizondo MD, Lab. Director Blood BLOOD SPECIMEN / Unknown Venipuncture / Unknown 09/09/2019 12:42 PM BARKER OPERATOR 09/09/2019 12:51 PM BARKER OPERATOR Tiffanie Mcpherson [facility] LAB - SEROLOGY ORDERABLES [facility]) [address] * VARICELLA ZOSTER ANTIBODY IGM (09/09/2019 12:42 PM BARKER OPERATOR) Pathologist [facility] Varicella zoster Virus Antibody IgM <0.91 0.00 - 0.90 index 09/10/2019 3:08 PM BARKER OPERATOR [facility] ([facility]) Comment: Negative <0.91 Borderline 0.91 - 1.09 Positive >1.09 Blood BLOOD SPECIMEN / Unknown Venipuncture / Unknown 09/09/2019 12:42 PM BARKER OPERATOR 09/09/2019 12:51 PM BARKER OPERATOR Narrative [facility] ([facility]) - 09/10/2019 3:08 PM BARKER OPERATOR Performed at: [facility] [address] [id number] Motor Brakeman: Constantino Linares PhD, Phone: [phone] Tiffanie Mcpherson [facility] LAB - CHEMISTRY ORDERABLES Performing Organization Address City/[facility] Co de Phone Number [facility] ([facility]) [address] [place] [address], [facility] * (ABNORMAL) ISA-JUAN VIRUS ANTIBODY TO VCA IGG (09/09/2019 12:42 PM BARKER OPERATOR) Pathologist [facility] Isa-Juan Virus Antibody IgG Viral Capsid Antigen 168.0(H) 0.0 - 21.9 U/mL 09/10/2019 4:38 PM BARKER OPERATOR [facility] ([facility]) Comment: INTERPRETIVE INFORMATION: Isa-Juan Virus Antibody to Viral Capsid Antigen, IgG 17.9 U/mL or less.......Not Detected 18.0-21.9 U/mL..........Indeterminate - Repeat testing in 10-14 days may be helpful. 22.0 U/mL or greater....Detected Performed by [facility], [address] [place] [address] www.[email or web address], Toribio Elizondo MD, Lab. Director Blood BLOOD SPECIMEN / Unknown Venipuncture / Unknown 09/09/2019 12:42 PM BARKER OPERATOR 09/09/2019 12:51 PM BARKER OPERATOR Lara Patrick [facility] LAB - CHEMISTRY ORDERABLES Performing Organization Address [facility] Co de Phone Number [facility] ([facility]) [address] * SICKLE CELL SCREEN (09/09/2019 12:42 PM BARKER OPERATOR) [facility] Sickle Cell Screen Negative Negative 09/09/2019 1:17 PM BARKER OPERATOR [facility] Blood BLOOD SPECIMEN / Unknown Venipuncture / Unknown 09/09/2019 12:42 PM BARKER OPERATOR 09/09/2019 12:50 PM BARKER OPERATOR Tiffanie Alvess [facility] LAB - HEMATOLOG Y ORDERABLES Performing Organization Address City/[facility] Co de Phone Number [address] [phone] * (ABNORMAL) TRIGLYCERIDES BLOOD (09/09/2019 12:42 PM BARKER OPERATOR) Triglycerides 192(H) <150 mg/dL 09/09/2019 1:26 PM BARKER OPERATOR [facility] Comment: ATP III Classification of Triglycerides: <150 mg/dL: Normal 150 - 199 mg/dL: Borderline High 200 - 400 mg/dL: High >500 mg/dL: Very High Blood BLOOD SPECIMEN / Unknown Venipuncture / Unknown 09/09/2019 12:42 PM BARKER OPERATOR 09/09/2019 12:50 PM BARKER OPERATOR Tiffanie Alvess [employer] LAB - CHEMISTRY ORDERABLES Performing Organization Address [facility] Co de Phone Number [address] [phone] * PROSTATE SPECIFIC ANTIGEN SCREEN (09/09/2019 12:42 PM BARKER OPERATOR) Pathologist [facility] PSA Total 2.7 0.0 - 4.0 ng/mL 09/09/2019 1:35 PM BARKER OPERATOR [facility] Blood BLOOD SPECIMEN / Unknown Venipuncture / Unknown 09/09/2019 12:42 PM BARKER OPERATOR 09/09/2019 12:50 PM BARKER OPERATOR Tiffanie Seymour Patrick GROUNDS CREW SUPERVISORHelpMeRent.comSTURDY [facility]IAL [facility]ITAL LAB - CHEMISTRY ORDERABLES Performing Organization Address [facility]/ZIP Co de Phone Number [address] [phone] * (ABNORMAL) HEPATITIS B SURFACE ANTIBODY (09/09/2019 12:42 PM BARKER OPERATOR) Hepatitis B Virus Surface Antibody Reactive( A) Non-react robyn 09/09/2019 1:46 PM BARKER OPERATOR [facility] Comment: > 12 mIU/mL Hepatitis B surface Antibody (HBsAb). Reactive for HBsAb - individual is considered immune to Hepatitis B Virus infection. Hepatitis B Surface Antibody Quantitative 156.2(H) <8.0 mIU/mL 09/09/2019 1:46 PM BARKER OPERATOR [facility] Comment: Hepatitis B Surface Antibody Numeric Result Interpretation: Nonreactive: <8.0 mIU/mL Indeterminate: 8.0 - 12.0 mIU/mL Reactive: >12.0 mIU/mL Blood BLOOD SPECIMEN / Unknown Venipuncture / Unknown 09/09/2019 12:42 PM BARKER OPERATOR 09/09/2019 12:51 PM BARKER OPERATOR Tiffanie Mcpherson APRN-INTEL ANALYST LAB - CHEMISTRY ORDERABLES [address] [phone] * (ABNORMAL) CHOLESTEROL BLOOD (09/09/2019 12:42 PM BARKER OPERATOR) Pathologist [facility] Cholesterol Total 214(H) <200 mg/dL 09/09/2019 1:15 PM BARKER OPERATOR [facility] Blood BLOOD SPECIMEN / Unknown Venipuncture / Unknown 09/09/2019 12:42 PM BARKER OPERATOR 09/09/2019 12:50 PM BARKER OPERATOR Larayoel Mcpherson APRN-[facility] LAB - CHEMISTRY ORDERABLES Performing Organization Address [facility] Co de Phone Number [address] [phone] * HEPATITIS C ANTIBODY (09/09/2019 12:42 PM BARKER OPERATOR) Only the most recent of2 resultswithin the time period is included. Pathologist [facility] Hepatitis C Antibody Non-react robyn Non-reac tive 09/09/2019 1:46 PM BARKER OPERATOR [facility] Comment: Hepatitis C Antibody screen indicates no serologic evidence of past or current infection with Hepatitis C Virus. Patients with unexplained liver disease who are immunocompromised or suspected of having acute Hepatitis C infection may benefit from Nucleic Acid Test (MEL) for Hepatitis C Viral RNA to confirm Hepatitis C status. Blood BLOOD SPECIMEN / Unknown Venipuncture / Unknown 09/09/2019 12:42 PM BARKER OPERATOR 09/09/2019 12:51 PM BARKER OPERATOR Tiffanie Mcpherson [facility] LAB - CHEMISTRY ORDERABLES [address] [phone] * HEPATITIS A IGM ANTIBODY (09/09/2019 12:42 PM BARKER OPERATOR) [facility] Hepatitis A Virus Antibody IgM Non-reacti ve Non-reacti ve 09/09/2019 1:46 PM BARKER OPERATOR [facility] Blood BLOOD SPECIMEN / Unknown Venipuncture / Unknown 09/09/2019 12:42 PM BARKER OPERATOR 09/09/2019 12:51 PM BARKER OPERATOR Tiffanie Mcpherson [facility] LAB - CHEMISTRY ORDERABLES Performing Organization Address [facility]/ZIP Co de Phone Number [address] [phone] * (ABNORMAL) HEPATITIS A ANTIBODY (09/09/2019 12:42 PM BARKER OPERATOR) [facility] Hepatitis A Virus Antibody Total Positive(A ) Negative 09/10/2019 9:09 AM BARKER OPERATOR [facility] ([facility]) Blood BLOOD SPECIMEN / Unknown Venipuncture / Unknown 09/09/2019 12:42 PM BARKER OPERATOR 09/09/2019 12:51 PM BARKER OPERATOR Narrative [facility] ([facility]) - 09/10/2019 9:09 AM BARKER OPERATOR Performed at: - [facility] [address] [place], [place] [id number] Motor Brakeman: Constantino Linares PhD, Phone: [phone] Tiffanie Mcpherson [facility] LAB - CHEMISTRY ORDERABLES Performing Organization Address City/[facility]/ZIP Co de Phone Number [facility] ([facility]) [address] [place] [address] * (ABNORMAL) HSV 2 IGG CONFIRMATION RFLXED (09/09/2019 12:41 PM BARKER OPERATOR) [facility] Herpes Simplex Virus 2 Antibody IgG Confirmation Positive( A) Negative 09/11/2019 4:09 PM BARKER OPERATOR [facility] ([facility]) Comment: HSV-2 IgG HSV-2 IgG Type Specific Confirmation Interpretation Positive/Equivocal Positive 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 Positive/Equivocal Negative Unable to confirm the presence of IgG antibodies to HSV-2. Recommend retesting in 2-4 weeks. Blood BLOOD SPECIMEN / Unknown Venipuncture / Unknown 09/09/2019 12:41 PM BARKER OPERATOR 09/09/2019 12:51 PM BARKER OPERATOR Narrative [facility] ([facility]) - 09/11/2019 4:09 PM BARKER OPERATOR Performed at: [address] [place] [address] [address] [place], [place] [id number] Motor Brakeman: Constantino Linares PhD, Phone: [phone] Tiffanie Mcpherson GR[employer] SUPERVISOR-INTEL ANALYST LAB - SEROLOGY ORDERABLES Performing Organization Address City/State/[facility] Co de Phone Number [facility] ([facility]) [address] [place] [address] * CYTOMEGALOVIRUS ANTIBODY IGM BLOOD (09/09/2019 12:41 PM BARKER OPERATOR) [facility] Cytomegalovirus Antibody IgM <30.0 0.0 - 29.9 AU/mL 09/11/2019 8:18 AM BARKER OPERATOR [facility] ([facility]) Comment: Negative <30.0 Equivocal 30.0 - 34.9 Positive >34.9 A positive result is generally indicative of acute infection, reactivation or persistent IgM production. Blood BLOOD SPECIMEN / Unknown Venipuncture / Unknown 09/09/2019 12:41 PM BARKER OPERATOR 09/09/2019 12:51 PM BARKER OPERATOR Narrative [facility] ([facility]) - 09/11/2019 8:18 AM BARKER OPERATOR Performed at: [address] [place] [id number] Motor Brakeman: Constantino Linares PhD, Phone: [phone] Tiffanie Mcpherson [facility] LAB - CHEMISTRY ORDERABLES Performing Organization Address [facility] Hospital/[facility] de Phone Number [facility] ([facility]) [address] * (ABNORMAL) CYTOMEGALOVIRUS ANTIBODY IGG BLOOD (09/09/2019 12:41 PM BARKER OPERATOR) Only the most recent of2 resultswithin the time period is included. [facility] Cytomegalovirus Antibody IgG 2.00(H) 0.00 - 0.59 U/mL 09/11/2019 8:18 AM BARKER OPERATOR [facility] ([facility]) Comment: Negative <0.60 Equivocal 0.60 - 0.69 Positive >0.69 Blood BLOOD SPECIMEN / Unknown Venipuncture / Unknown 09/09/2019 12:41 PM BARKER OPERATOR 09/09/2019 12:51 PM BARKER OPERATOR Narrative [facility] ([facility]) - 09/11/2019 8:18 AM BARKER OPERATOR Performed at: [address] [place] [address] [id number] Motor Brakeman: Constantino Linares PhD, Phone: [phone] Tiffanie Mcpherson [facility] LAB - CHEMISTRY ORDERABLES Performing Organization Address [facility] de Phone Number [facility]) [address] [place] [address] * (ABNORMAL) HERPES SIMPLEX 1+2 ANTIBODY IGG/IGM PANEL (09/09/2019 12:41 PM BARKER OPERATOR) [facility] Herpes Simplex Virus Antibody IgM I/II Combination Ratio <0.91 0.00 - 0.90 Ratio 09/11/2019 4:09 PM BARKER OPERATOR [facility] ([facility]) Comment: Negative <0.91 Equivocal 0.91 - 1.09 Positive >1.09 Herpes Simplex Virus I Antibody IgG Type Specific Index 9.29(H) 0.00 - 0.90 index 09/11/2019 4:09 PM [facility] ([facility]) Comment: Negative <0.91 Equivocal 0.91 - 1.09 Positive >1.09 Note: Negative indicates no antibodies detected to HSV-1. Equivocal may suggest early infection. If clinically appropriate, retest at later date. Positive indicates antibodies detected to HSV-1. Herpes Simplex Virus 2 Antibody IgG Type Specific 0.93(H) 0.00 - 0.90 index 09/11/2019 4:09 PM BARKER OPERATOR [facility] ([facility]) Comment: A second sample should be collected and tested no less than 2-4 weeks. Negative <0.91 Equivocal 0.91 - 1.09 Positive >1.09 Note: Negative indicates no antibodies detected to HSV-2. Equivocal may suggest early infection. If clinically appropriate, retest at later date. Positive indicates antibodies detected to HSV-2. Blood BLOOD SPECIMEN / Unknown Venipuncture / Unknown 09/09/2019 12:41 PM BARKER OPERATOR 09/09/2019 12:51 PM BARKER OPERATOR Narrative [facility] ([facility]) - 09/11/2019 4:09 PM BARKER OPERATOR Performed at: - [facility] [address] [place], [place] [id number] Motor Brakeman: Constantino Linares PhD, Phone: [phone] Tiffanie Mcpherson [facility] LAB - CHEMISTRY ORDERABLES Performing Organization Address [facility] Co de Phone Number [facility] ([facility]) [address] [place] [address], [facility] * HEPATITIS B CORE ANTIBODY (09/09/2019 12:41 PM BARKER OPERATOR) Only the most recent of2 resultswithin the time period is included. HBc Antibody Total Non-reacti ve Non-reacti ve 09/09/2019 2:21 PM BARKER OPERATOR [facility] Blood BLOOD SPECIMEN / Unknown Venipuncture / Unknown 09/09/2019 12:41 PM BARKER OPERATOR 09/09/2019 12:51 PM BARKER OPERATOR Tiffanie Mcpherson [facility] LAB - CHEMISTRY ORDERABLES [address] [phone] * HEPATITIS B SURFACE ANTIGEN W RFLX CONFIRMATION (09/09/2019 12:41 PM BARKER OPERATOR) Only the most recent of2 resultswithin the time period is included. Hepatitis B Virus Surface Antigen Non-reacti ve Non-reacti ve 09/09/2019 1:48 PM BARKER OPERATOR [facility] Blood BLOOD SPECIMEN / Unknown Venipuncture / Unknown 09/09/2019 12:41 PM BARKER OPERATOR 09/09/2019 12:51 PM BARKER OPERATOR Tiffanie Mcpherson APRN-[facility] LAB - CHEMISTRY ORDERABLES Performing Organization Address [facility] Co de Phone Number [address] [phone] * (ABNORMAL) IGM BLOOD (09/09/2019 12:41 PM BARKER OPERATOR) Only the most recent of2 resultswithin the time period is included. IgM 19(L) 22 - 293 mg/dL 09/09/2019 1:46 PM BARKER OPERATOR [facility] Blood BLOOD SPECIMEN / Unknown Venipuncture / Unknown 09/09/2019 12:41 PM BARKER OPERATOR 09/09/2019 12:51 PM BARKER OPERATOR Tiffanie Mcpherson GROUN[employer]W SUPERVISOR-[facility] LAB - CHEMISTRY ORDERABLES Performing Organization Address City/[facility]/ZIP Co de Phone Number [address] [phone] * IGA BLOOD (09/09/2019 12:41 PM BARKER OPERATOR) Only the most recent of2 resultswithin the time period is included. IgA 92 87 - 534 mg/dL 09/09/2019 1:46 PM BARKER OPERATOR [facility] Blood BLOOD SPECIMEN / Unknown Venipuncture / Unknown 09/09/2019 12:41 PM BARKER OPERATOR 09/09/2019 12:51 PM BARKER OPERATOR Tiffanie Mcpherson [facility] LAB - CHEMISTRY ORDERABLES Performing Organization Address [facility]/ZIP Co de Phone Number [facility] [address] [place] [address], [facility] [phone] * HOLD SPECIMEN DNA TISSUE (09/09/2019 12:30 PM BARKER OPERATOR) Only the most recent of2 resultswithin the time period is included. HOLD SPECIMEN DNA RESULT 31 ng/uL 09/17/2019 3:07 PM BARKER OPERATOR [facility] BONE MARROW SPECIMEN / Unknown 09/09/2019 12:30 PM BARKER OPERATOR 09/09/2019 12:49 PM BARKER OPERATOR Narrative [facility] - 09/17/2019 3:07 PM BARKER OPERATOR No specific testing was performed at this time. The DNA will be stored for future testing. This test was developed and its performance characteristics determined by the [facility] Laboratory at [facility]. It has not been cleared or approved by the U.S. Food and Drug Administration. The FDA has determined that such clearance or approval is not necessary. This test is used for clinical purposes. It should not be regarded as investigational or for research. This laboratory is certified under the Clinical Laboratory Improvement Amendments of 1988 (CLIA-88) as qualified to preform high complexity clinical laboratory testing. Tiffanie Mcpherson [facility] LAB - PATHOLOGY /CYTOLOGY ORDERABLES Performing Organization Address [facility] Co de Phone Number [facility] [address] [place] [address], [facility] [phone] * XR PANOREX (09/09/2019 11:55 AM BARKER OPERATOR) Anatomical Region Laterality Modality Head Radiographic Chayito ging 09/09/2019 11:5 1 AM BARKER OPERATOR Impressions 09/09/2019 3:27 PM BARKER OPERATOR IMPRESSION: All teeth are missing. Intact osseous structures. Report drafted by Yg Lee M.D. (resident) IDr. EMILIA M.D. have personally reviewed and interpreted this examination/study. This report was electronically signed by EMILIA LA M.D. on 09/09/2019 3:27 PM . Narrative 09/09/2019 3:27 PM BARKER OPERATOR EXAMINATION: [employer] HISTORY: Z01.818: Pre-transplant evaluation [...] on 09/09/2019 3:27 PM . Tiffanie Mcpherson GROUN[employer] CREW SUPERVISOR-INTEL ANALYST DIAGNOSTIC IMAG ING ORDERABLES * EKG 12-LEAD (09/09/2019 11:08 AM BARKER OPERATOR) Ventricular Rate 73 BPM [facility] Atrial Rate 73 BPM [facility] P-R Interval 144 ms [facility] QRS Duration ms 76 ms [facility] Q-T Interval ms 380 ms [facility] QTC Calculation (Bezet) 418 ms [facility] Calculated P [place] 33 degrees [facility] Calculated R [place] 82 degrees [facility] Calculated T [place] 66 degrees [facility] Interpretation EKG NORMAL SINUS RHYTHM NORMAL ECG NO PREVIOUS ECGS AVAILABLE Confirmed by Vickey Mensah ([id number]), web content editor RENALDO LOONEY ([id number]) on 09/17/2019 6:11:29 PM Also confirmed by Vickey Mensah ([id number]), web content editor Elida Graham ([id number]) on 12/31/2019 3:14:02 PM [facility] MUSE 09/09/2019 11:0 8 AM BARKER OPERATOR 12/31/2019 3:14 PM CDT Tiffanie Mcpherson GROUN[employer] SUPERVISOR-INTEL ANALYST ECG ORDERABLES Performing Organization Address City/[facility]/ZIP Co de Phone Number [facility] MUSE * GLUCOSE - POINT OF CARE (08/18/2019 4:51 AM BARKER OPERATOR) Only the most recent of3 resultswithin the time period is included. Glucose WB/POC 103 70 - 115 mg/dL 08/18/2019 7:09 AM BARKER OPERATOR [facility] Specimen Type Arterial/C apillary 08/18/2019 7:09 AM BARKER OPERATOR [facility] Blood BLOOD SPECIMEN / Unknown 08/18/2019 4:51 AM BARKER OPERATOR 08/18/2019 7:09 AM BARKER OPERATOR Chloe Kent MD LAB - POINT OF CARE ORDERABLES Performing Organization Address [facility] Co de Phone Number [address] [phone] * LAB MISC TEST (NOT BLOOD) (08/17/2019 12:55 PM BARKER OPERATOR) Test Name Annexin A1 with Interpretation 08/27/2019 10:55 AM BARKER OPERATOR [facility] REF LAB NON INTERF Test Result See Scanned Report 08/27 10:55 AM BARKER OPERATOR [facility] REF LAB NON INTERF Comment Ref Lab 08/27/2019 10:55 AM BARKER OPERATOR [facility] REF LAB NON INTERF Other ENTIRE SPLEEN / Unknown Collection / Unknown 08/17/2019 12:55 PM BARKER OPERATOR 08/18/2019 3:31 PM BARKER OPERATOR Chloe Kent MD LAB - BODY FLUID ORD ERABLES Performing Organization Address [facility] Co de Phone Number [facility] REF LAB NON INTERF [address] [place] [address] * ARTERIAL LINE PERFORMABLE (08/17/2019 8:32 AM BARKER OPERATOR) Narrative Fidel Mistry, - 08/17/2019 8:32 AM BARKER OPERATOR Fidel Mistry, 08/17/2019 8:32 AM Arterial Line Placement Procedure Note Patient Location: OR. Procedure: Arterial Line ([id number]). Procedure Section Indications: hypotension, continuous blood pressure [...] * ETT LINE PERFORMABLE (08/17/2019 8:31 AM BARKER OPERATOR) Narrative Fidel Mistry DO - 08/17/2019 8:31 AM BARKER OPERATOR Fidel Mistry DO 08/17/2019 8:32 AM Endotracheal Tube Placement: Patient Location: OR. Intubation Event Date/Time: 08/17/2019 7:41 AM Procedure: intubation ([id number]). Procedure Section: Sedation: under general anesthesia. Indications [...] RBC UNIT(S), 2 Units (08/17/2019 6:58 AM BARKER OPERATOR) Unit Description LR IRR Red Cells [facility] BLOOD [facility] LAB Unit ABO A [facility] Unit Rh POS [facility] Product Code RU1 [facility] BLO OD BANK LAB Unit Donor # [id number] [facility] Unit Status released [facility] BLOO D BANK LAB Product Number [id number] [facility] B LOOD BANK LAB Blood Type Barcode 6200 [facility] Unit Description LR IRR Red Cells [facility] Unit ABO A [facility] B[facility] Unit Rh POS [facility] BLOOD [facility] LAB Product Code RU1 [facility] BLO OD BANK LAB Unit Donor # [id number] [facility] BLOOD [facility] LAB Unit Status released [facility] BLOO D BANK LAB Product Number [id number] [facility] B LOOD BANK LAB Blood Type Barcode 6200 [facility] BLOOD BANK LAB Blood Bank BLOOD SPECIMEN / Unknown 08/17/2019 6:58 AM BARKER OPERATOR 08/17/2019 6:58 AM BARKER OPERATOR Elkin Shahid MD LAB - BLOOD BANK ORD ERABLES [facility] BLOOD [facility]ANK LAB [address] * [place] LIVER ELASTOGRAPHY (08/15/2019 9:31 PM BARKER OPERATOR) Narrative Travon Merchant MD - 08/15/2019 9:31 PM BARKER OPERATOR Travon Merchant MD 08/15/2019 9:31 PM Diagnosis: Pre transplant evaluation RN verified patient has no implanted devices and NPO for prior 3 hours. Vital signs taken, procedure explained and consent signed. Date of Exam: 08/11/2019 Liver Stiffness: (LSM, kPa) median: 3.5 IQR (interquartile range): 0.5 IQR/Median% (ideally < 30%): 14 CAP (controlled attenuation parameter): 400 Technical Difficulty: None Ordering Provider: Tiffanie Mcpherson MERCANTILE REPORTER Phone Fax Fibroscan interpretation: I have personally [...] patients with nonalcoholic fatty liver disease. Gastroenterology 2019;156:[id number]. Renuka MS, Desire R, Van Yoan ML, [...] FIB4 score (Davyduke et al. [employer] 2019;3:5289-9220) or NAFLD Fibrosis score (Moura et al. Clinical Gastroenterology and Hepatology 2019;17:0835-6695. from routine clinical data. 3. Liver stiffness [...] change as additional supporting data becomes available. [email or web address] Tiffanie Mcpherson JOSE DAVID-ERIKA PROCEDURE/MINOR SURGICAL ORDERABLES * SIX MINUTE WALK (08/11/2019 2:27 PM BARKER OPERATOR) Impressions Apolinar Ramos MD - 08/11/2019 2:[address] [facility] DEPARTMENT OF PULMONARY, CRITICAL CARE, AND SLEEP MEDICINE SIX MINUTE WALK TEST Marcello Guillen 08/11/2019 Interpretation: The patient walked for 6 minutes on room air and covered total distance of 422 meters. On the Bruno scale at baseline, reported dyspnea was 0 and fatigue was 2. At the end of the study, the Bruno reported dyspnea was 0 and fatigue was 2. There were no additional symptoms reported and oxygen [...] Critical Care, & Sleep Medicine [facility] Beeper #:[phone] I have personally reviewed the pulmonary function test data and made adjustment to the interpretation where necessary. Apolinar Ramos MD 08/12/2019 Narrative Apolinar Ramos MD - 08/11/2019 2:27 PM BARKER OPERATOR Moon Nance MD 08/11/2019 4:38 PM Procedure Note Moon Nance MD - 08/11/2019 2:27 PM CST Images from the original note were not included. Tiffanie Mcpherson PRASANNA RESPIRATORY THE RAPY ORDERABLES * COMPLETE PFT (08/11/2019 2:22 PM BARKER OPERATOR) ImpressionApolinar Ley MD - 08/11/2019 2:[address] [facility] DEPARTMENT OF PULMONARY, CRITICAL CARE, AND SLEEP MEDICINE PULMONARY FUNCTION TEST Please see technologist's comments mentioned in the report. INTERPRETATION: SPIROMETRY: FVC: decreased FEV1: decreased FEV1/FVC ratio is decreased. BRONCHODILATOR RESPONSE: There is a positive response to bronchodilators FLOW-VOLUME LOOPS: Scooping of the expiratory limbs LUNG VOLUMES: Lung volumes by body plethysmography show mild hyperinflation based on TLC(120-135% pred) and severe air-trapping based on RV(>150% pred). DLCO: Unadjusted for Hb and COHb is normal DLCO: Corrected for Hb and COHb is: not able to perform AIRWAY RESISTANCE: The airway resistance is increased and the specific conductance is decreased ARTERIAL BLOOD GAS ANALYSIS: not performed IMPRESSION: 1. Mild Obstructive Ventilatory Limitation 2. Mild hyperinflation and severe air trapping. 3. There is a positive bronchodilator response 4. There is no previous study available for comparison Moon Nance MD Pulmonary & Critical Care Fellow Division of Pulmonary, Critical Care and Sleep Medicine [facility] Pager: [phone] I have personally reviewed the pulmonary function test data and made adjustment to the interpretation where necessary. Apolinar Ramos MD 08/12/2019 Narrative Apolinar Ramos MD - 08/11/2019 2:22 PM BARKER OPERATOR Moon Nance MD 08/11/2019 4:38 PM Procedure Note Moon Nance MD - 08/11/2019 2:22 PM CST Images from the original note were not included. Tiffanie Mcpherson APRN-ERIKA RESPIRATORY THE R[facility] ORDERABLES * ECHO COMPLETE (08/11/2019 11:03 AM BARKER OPERATOR) Anatomical Region Laterality Modality Echo 08/11/2019 10:2 8 AM BARKER OPERATOR Narrative Procedure Note Olivia Payan MD - 08/11/2019 Tiffanie MIMS ECHOCARDIOGRAPH Y RADIANT * PET CT WHOLE BODY (08/11/2019 10:29 AM BARKER OPERATOR) Anatomical Region Laterality Modality Positron Emissio n Tomography (PET) 08/11/2019 10:2 9 AM BARKER OPERATOR Impressions 08/12/2019 4:41 PM BARKER OPERATOR IMPRESSION: 1. No evidence of recurrent or residual disease ([place] 1). This report was approved by Tacos Rainey M.D. on 08/11/2019 11:15 AM . I, Dr. ANURADHA RHODES M.D. have personally reviewed and interpreted this examination/study. This report was electronically signed by ANURADHA RHODES M.D. on 08/12/2019 4:41 PM . Narrative 08/12/2019 4:41 PM BARKER OPERATOR PROCEDURE: PET/CT Study REFERRING PHYSICIAN: TIFFANIE [...] is made to a PET/CT performed at [email or web address] on March 15, 2019. For reference, SUV [...] is made to a PET/CT performed at [facility] [[email or web address] on March 15, 2019. For reference, SUV [...] Tacos Rainey M.D. on 08/11/2019 11:15 AM. I, Dr. ANURADHA RHODES M.D. have personally reviewed and interpreted this examination/study. This report was electronically signed by ANURADHA RHODES M.D. on 08/12/2019 4:41 PM . Tiffanie Mcpherson APRN-INTEL ANALYST [place] ORDERABLES * GLUCOSE SCREEN - POCT (IP) [facility] (08/11/2019 8:44 AM BARKER OPERATOR) Glucose WB/POC 105 70 - 115 mg/dL [facility] POCT TESTING Blood BLOOD SPECIMEN / Unknown 08/11/2019 8:44 AM BARKER OPERATOR Tiffanie MIMS LAB - POINT OF CARE ORDERABLES [facility] POCT TESTING [address] [phone] * CT ABDOMEN PELVIS WO CONTRAST (07/26/2019 1:29 PM BARKER OPERATOR) Anatomical Region Laterality Modality Abdomen, Pelvis Computed Tomogra phy 07/26/2019 1:55 PM BARKER OPERATOR Impressions 07/30/2019 11:04 AM BARKER OPERATOR IMPRESSION: 1. The spleen is enlarged, measuring 15.8 cm craniocaudally, decreased from 06/09/2019. 2. No acute process identified in the abdomen or pelvis. No abdominal or pelvic lymphadenopathy. Dictated by Mary Ellen Ty MD (client services vice president). I, Dr. CAMERON PECK M.D. have personally reviewed and interpreted this examination/study. This report was electronically signed by CAMERON PECK M.D. on 07/30/2019 11:04 AM . Narrative 07/30/2019 11:04 AM BARKER OPERATOR EXAMINATION: Computed tomography (CT) of the abdomen [...] lymphadenopathy. Dictated by Mary Ellen Ty MD (client services vice president). I, Dr. CAMERON PECK M.D. have personally reviewed and interpreted this examination/study. This report was electronically signed by CAMERON PECK M.D. on 07/30/2019 11:04 AM . Tiffanie Mcpherson GROUN[employer] CREW SUPERVISOR-INTEL ANALYST CT ORDERABLES * (ABNORMAL) DRUG SCREEN TOX URINE PANEL (07/26/2019 12:47 PM BARKER OPERATOR) Only the most recent of2 resultswithin the time period is included. [facility] Amphetamines Screen Urine Negative Negative : < 1000 ng/mL 07/26/2019 2:34 PM BARKER OPERATOR [facility] Barbiturates Screen Urine Negative Negative : < 200 ng/mL 07/26/2019 2:34 PM [facility] Benzodiazepine Screen Urine Negative Negative : < 200 ng/mL 07/26/2019 2:34 PM [facility] Opiates Urine Positive(A) Negative : < 300 ng/mL 07/26/2019 2:34 PM [facility] Comment: Positive urine opiate screening results should be confirmed by another generally accepted non-immunological method such as gas chromatography or mass spectrometry. Cocaine Metabolites Urine Negative Negative : < 300 ng/mL 07/26/2019 2:34 PM [facility] Phencyclidine Screen Urine Negative Negative : < 25 ng/ml 07/26/2019 2:34 PM [facility] Cannabinoids Screen Urine Positive(A) Negative : <50 ng/mL 07/26/2019 2:34 PM [facility] Comment: Positive urine cannabinoids (THC) screening results should be confirmed by another generally accepted non-immunological method such as gas chromatography or mass spectrometry. Methadone Screen Urine Negative Negative : < 300 ng/mL 07/26/2019 2:34 PM [facility] Fentanyl Screen Urine Negative Negative : <1.0 ng/mL 07/26/2019 2:34 PM [facility] Urine URINE / Unknown Collection / Unknown 07/26/2019 12:47 PM BARKER OPERATOR 07/26/2019 2:23 PM BARKER OPERATOR Narrative [facility] - 07/26/2019 2:34 PM BARKER OPERATOR The Urine Toxicology Screening Panel does not screen for Propoxyphene, Meprobamate, Carisoprodol, Trazodone, ibwf-nxp-tigmvit medications and/or volatiles (Acetone, Isopropanol, Methanol or Ethylene Glycol). Ethanol, Salicylate, Acetaminophen, Tricyclic Antidepressants and several therapeutic drugs may be individually assayed in serum or plasma specimen. Toxicology testing by the [facility] is an aid to medical diagnosis and treatment of patients. No documented chain of custody was maintained. Results are intended to be used for clinical purposes only. Tiffanie Mcpherson GROUNDS CREW SUPERVISOR-INTEL ANALYST LAB - URINE LINDA MIRIAN ORDERABLES [facility] [address] [place] [address] * [place] LIVER ELASTOGRAPHY (06/11/2019 4:49 PM BARKER OPERATOR) Narrative Travon Merchant MD - 06/11/2019 4:49 PM BARKER OPERATOR Travon Merchant MD 06/11/2019 4:49 PM Diagnosis: Splenomegaly RN verified patient has no implanted devices and NPO for prior 3 hours. Vital signs taken, procedure explained and consent signed. Date of Exam: 06/09/2019 Liver Stiffness: (E, kPa) median: 3.7 IQR (interquartile range): 0.4 IQR/Median% (ideally < 30%): 11 CAP (controlled attenuation parameter): 400 Technical Difficulty: None Ordering Provider: Tiffanie Mcpherson MERCANTILE REPORTER Phone Fax Fibroscan interpretation: I have personally [...] change as additional supporting data becomes available. [email or web address] Tiffanie Mcpherson GROUNDS CREW SUPERVISOR-INTEL ANALYST PROCEDURE/MINOR SURGICAL ORDERABLES * CT ABDOMEN PELVIS W CONTRAST (06/09/2019 3:37 PM BARKER OPERATOR) Anatomical Region Laterality Modality Abdomen, Pelvis Computed Tomogra phy 06/09/2019 3:59 PM BARKER OPERATOR Impressions 06/10/2019 5:08 PM BARKER OPERATOR IMPRESSION: 1. The spleen is enlarged, measuring 17.9 cm craniocaudally. This is decreased from 03/02/2019. 2. No acute process identified in the abdomen or pelvis. Dictated by Love Rowland MD (client services vice president). I, Dr. NARGIS ESPINO M.D. have personally reviewed and interpreted this examination/study. This report was electronically signed by NARGIS ESPINO M.D. on 06/10/2019 5:08 PM . Narrative 06/10/2019 5:08 PM BARKER OPERATOR EXAMINATION: Computed tomography (CT) of the abdomen [...] or pelvis. Dictated by Love Rowland MD (client services vice president). I, Dr. NARGIS ESPINO M.D. have personally reviewed and interpretedthis examination/study. This report was electronically signed by NARGIS ESPINO M.D. on 06/10/2019 5:08 PM . Tiffanie Mcpherson GROUNDS CREW SUPERVISOR-[facility] CT ORDERABLES * HIV-1 HIV-2 ANTIGEN/ANTIBODY (03/22/2019 3:00 PM CDT) HIV Antigen/Antibod y 1 & 2 Non-reacti ve Non-react robyn 03/22/2019 3:59 PM CDT [facility] Comment: Neither HIV-1 p24 Antigen nor HIV-1/HIV-2 Antibodies are detected. Blood BLOOD SPECIMEN / Unknown Venipuncture / Unknown 03/22/2019 3:00 PM CDT 03/22/2019 3:11 PM CDT Tiffanie Mcpherson GROUNDS CREW SUPERVISOR-[facility] LAB - HEMATOLOG Y ORDERABLES [facility] [address] [phone] Care Teams [employer] Manager Relationship Specialty Start Date End Date Ran Nuñez MD [address] [place] [address] PCP - General Family Medicine 08/30/21 Hillary Apple MD [address] [place] [address] Hematology and Oncology 03/17/19 Tony Dumont MD [address] [place] [address] Hematology and Oncology 03/17/19 Maryjo Reinoso LCSW Relationship Consultant 03/17/19 Madyson Clay, PharmD 03/17/19 Dana Lala, GROUNDS CREW SUPERVISOR-BUSINESS TECHNOLOGY PROFESSOR [address] [place] [address] Oncology 03/17/19 Tiffanie Mcpherson, GROUNDS CREW SUPERVISOR-INTEL ANALYST [address] [place] [address] Family Medicine 03/17/19 Cesar Tavares MD [address] [place] [address] Referring Physician Medical Oncology 03/23/19 Joy Bob 09/22/19 Tony Dumont MD [address] [place] [phone] Hematology and Oncology 10/30/21 Shalini Segal MD [address] [facility] OF HEMATOLOGY [place] [address] Retail Business Analyst/Oncologist Hematology and Oncology 10/30/21 Stefanie Burns, ROSEMARY Registered Nurse 10/30/21 Fatemeh Bolaños, RN Registered Nurse 10/30/21 Chandana Lu MD [address] [place] [address] Orthopedic Surgery 03/30/24
--- OUTSIDE RECORDS SUMMARY | 2024-09-14 07:31 | XMS_ITS | Referral Summary ---
Author Organization [facility] Address [address] [place] [address] Care Team Providers Care Optical Goods Drilling Machine Operator Name Role Phone Hillary Apple MD Unavailable [phone] Tony Dumont MD Unavailable [phone] Maryjo ReinosoW Unavailable Unavailable Madyson Clay PharmD Unavailable Unavaila Dana Galicia CALIBRATOR BAROMETERS-CHILD CARE CENTRE DIRECTOR Unavailable [phone] Tiffanie Nguyen CALIBRATOR BAROMETERS-CURATOR OF MANUSCRIPTS Unavailable [phone] Cesar Tavares MD Unavailable [phone] Joy Bob Unavailable Fanta Ran Augustine MD Primary Care Provider Tony Dumont MD Unavailable [phone] Shalini Segal MD Unavailable [phone] Stefanie Burns RN Unavailable Unavaila Fatemeh Kelly RN Unavailable Unavailable Chandana Lu MD Unavailable [phone] Source Comments [facility],non-owned Affiliates and Associated Physician Practices is amultiple site organization consisting of ambulatory clinics and hospital sitesin [place], [place], [place] and [place]. This disclosure is being madepursuant to the Care Everywhere program and may not contain all information available regarding this patient. Last updated 18.[facility] Encounters Date Type Department Care Team Description 07/12/2024 Telephone [facility] - Centralized Scheduling [address] [place] [address] Andrew Francis MD Reschedule Appointment [...] 37.2 C (99 F) 06/30/2022 6:32 PM INTERNATIONAL EXCHANGE COORDINATOR Respiratory Rate 17 02/26/2024 8:05 AM CDT [...] concentrating/remembering/making decisions? No 02/25/2020 Plan of Treatment Not on file Medical Devices Implanted Type Area Diamond Saw Operator Device Identifier Shelf Expiration Date Model / Serial / Lot Tray Cath 12fr 23cm Hkmn Trifusion 3 Lum Implanted:Qty: 1 on 09/17/2019 at [facility] [employer] 05/03/2021 [id number] / / [id number] Procedures Procedure Name Priority Date/Time Associated Diagnosis Comments COMPREHENSIVE METABOLIC PANEL STAT 08/30/2021 11:36 AM INTERNATIONAL EXCHANGE COORDINATOR Diffuse large B-cell lymphoma, unspecified body region (HCC) LIPID PROFILE Routine 08/30/2021 11:36 AM INTERNATIONAL EXCHANGE COORDINATOR Diffuse large B-cell lymphoma, unspecified body region (HCC) S/P autologous bone marrow transplantation (HCC) HEPATITIS C ANTIBODY Routine 09/09/2019 12:42 PM INTERNATIONAL EXCHANGE COORDINATOR Pre-transplant evaluation for stem cell transplant HIV-1 HIV-2 ANTIGEN/ANTIBODY Routine 03/22/2019 3:00 PM CDT Diffuse large B-cell lymphoma, unspecified body region (HCC) from Last 3 Months or Most Recently Relevant to Health Maintenance Results * (ABNORMAL) COMPREHENSIVE METABOLIC PANEL (08/30/2021 11:36 AM INTERNATIONAL EXCHANGE COORDINATOR) BUN 12 7 - 26 mg/dL 08/30/2021 12:10 PM [facility] Creatinine 1.02 0.71 - 1.16 mg/dL 08/30/2021 12:10 PM [facility] Sodium 140 136 - 145 mmol/L 08/30/2021 12:10 PM [facility] Potassium 4.8(H) 3.5 - 4.5 mmol/L 08/30/2021 12:10 PM [facility] Chloride 107 98 - 107 mmol/L 08/30/2021 12:10 PM [facility] CO2 23 22 - 29 mmol/L 08/30/2021 12:10 PM [facility] Glucose 99 70 - 115 mg/dL 08/30/2021 12:10 PM [facility] Calcium 9.4 8.4 - 10.2 mg/dL 08/30/2021 12:10 PM [facility] Protein Total 6.6 6.0 - 8.3 g/dL 08/30/2021 12:10 PM [facility] Albumin 3.9 3.4 - 5.0 g/dL 08/30/2021 12:10 PM [facility] Bilirubin Total 0.4 0.2 - 1.2 mg/dL 08/30/2021 12:10 PM [facility] Alkaline Phosphatase 113 40 - 150 U/L 08/30/2021 12:10 PM [facility] ALT 38 5 - 55 U/L 08/30/2021 12:10 PM [facility] AST 26 5 - 34 U/L 08/30/2021 12:10 PM [facility] Anion Gap 15 8 - 18 08/30/2021 12:10 PM [facility] BUN/Creatinine Ratio 12 7 - 23 08/30/2021 12:10 PM [facility] Osmolality Calculated 290 270 - 300 mOsm/kg 08/30/2021 12:10 PM [facility] Albumin/Globulin Ratio 1.4 1.1 - 2.3 08/30/2021 12:10 PM [facility] eGFR by CKD-EPI 85(L) >=90 mL/min/1.7 3 m2 08/30/2021 12:10 PM [facility] Blood BLOOD SPECIMEN / Unknown Venipuncture / Unknown 08/30/2021 11:36 AM INTERNATIONAL EXCHANGE COORDINATOR 08/30/2021 11:46 AM [facility] Tiffanie Nguyen CALIBRATOR BAROMETERS-CURATOR OF MANUSCRIPTS LAB - CHEMISTRY ORDERABLES [facility] [address] [place] [address], [facility] [phone] * (ABNORMAL) LIPID PROFILE (08/30/2021 11:36 AM [facility]) Cholesterol Total 207(H) <200 mg/dL 08/30/2021 12:10 PM [facility] HDL 38(L) >40 mg/dL 08/30/2021 12:10 PM [facility] Comment: ATP III Classification of HDL Cholesterol: <40 mg/dL: Considered a major risk factor. >60 mg/dL: Considered a negative risk factor. LDL Calculated 152(H) <100 mg/dL 08/30/2021 12:10 PM [facility] Comment: ATP III Classification of LDL Cholesterol: <100 mg/dL: Optimal 100 - 129 mg/dL: Near Optimal/Above Optimal 130 - 159 mg/dL: Borderline High 160 - 189 mg/dL: High >190 mg/dL: Very High Triglycerides 87 <150 mg/dL 08/30/2021 12:10 PM [facility] Comment: ATP III Classification of Triglycerides: <150 mg/dL: Normal 150 - 199 mg/dL: Borderline High 200 - 400 mg/dL: High >500 mg/dL: Very High Blood BLOOD SPECIMEN / Unknown Venipuncture / Unknown 08/30/2021 11:36 AM INTERNATIONAL EXCHANGE COORDINATOR 08/30/2021 11:46 AM INTERNATIONAL EXCHANGE COORDINATOR Tiffanie Nguyen [facility]IB[facility] - CHEMISTRY ORDERABLES [facility] [address] [place] [address], [facility] [phone] * HEPATITIS C ANTIBODY (09/09/2019 12:42 PM INTERNATIONAL EXCHANGE COORDINATOR) [facility]atitis [facility] Antib[facility] 1:46 PM [facility] Comment: Hepatitis C Antibody screen indicates no serologic evidence of past or current infection with Hepatitis C Virus. Patients with unexplained liver disease who are immunocompromised or suspected of having acute Hepatitis C infection may benefit from Nucleic Acid Test (MEL) for Hepatitis C Viral RNA to confirm Hepatitis C status. Blood BLOOD SPECIMEN / Unknown Venipuncture / Unknown 09/09/2019 12:42 PM INTERNATIONAL EXCHANGE COORDINATOR 09/09/2019 12:51 PM INTERNATIONAL EXCHANGE COORDINATOR Tiffanie Nguyen CALIBRATOR BAROMETERS-[facility] LAB - CHEMISTRY ORDERABLES [facility] [address] [place], [place] [address] [phone] * HIV-1 HIV-2 ANTIGEN/ANTIBODY (03/22/2019 3:00 PM CDT) HIV Antigen/Antibod y 1 & 2 Non-reacti ve Non-react robyn 03/22/2019 3:59 PM CDT [facility] Comment: Neither HIV-1 p24 Antigen nor HIV-1/HIV-2 Antibodies are detected. Blood BLOOD SPECIMEN / Unknown Venipuncture / Unknown 03/22/2019 3:00 PM CDT 03/22/2019 3:11 PM CDT Tiffanie Nguyen CALIBRATOR BAROMETERS-CURATOR OF MANUSCRIPTS LAB - HEMATOLOG Y ORDERABLES [facility] [address] [place] [address], [facility] [phone] from Last 3 Months or Most Recently Relevant to Health Maintenance Advance Directives Documents on File Type Date Recorded Patient Senior Product Development Scientist Expl anation Adv Directive/Living Will/POA 10/27/2019 2:34 [...] 6:25 PM 08/19/2019 4:51 PM Care Teams Optical Goods Drilling Machine Operator Relationship Specialty Start Date End Date Ran Nuñez MD [address] [place] [address] PCP - General Family Medicine 08/30/21 Hillary Apple MD [address] [place] [address] Hematology and Oncology 03/17/19 Tony Dumont MD [facility] [place] [address] Hematology and Oncology 03/17/19 Maryjo Reinoso, [facility] Psychiatry Teacher 03/17/19 Madyson Clay, PharmD 03/17/19 Dana Lala APRN-CHILD CARE CENTRE DIRECTOR [address] [place] [address] Oncology 03/17/19 Tiffanie Nguyen APRN-CURATOR OF MANUSCRIPTS [address] [place] [address] Family Medicine 03/17/19 Cesar Tavares MD [address] [place] [address] Referring Physician Medical Oncology 03/23/19 Joy Bob 09/22/19 Tony Dumont MD [address] [place] [address] Hematology and Oncology 10/30/21 Shalini Segal MD [facility] [place] [facility] OF HEMATOLOGY [place] [address] Administrative Processor/Oncologist Hematology and Oncology 10/30/21 Stefanie Burns, ROSEMARY Registered Nurse 10/30/21 Fatemeh Bolaños, RN Registered Nurse 10/30/21 Chandana Lu MD [address] [place] [address] Orthopedic Surgery 03/30/24
== END 2024-09-14 07:21 | disposition home or self-care (01) ==
PROVIDERS: PCP Family Medicine; Visit Provider Internal Medicine Hematology & Oncology
DX: R59.9 Enlarged lymph nodes, unspecified (principal); K65.4 Sclerosing mesenteritis; I27.82 Chronic pulmonary embolism
CPT/HCPCS: 71260; 74177; Q9967

== ENCOUNTER 2024-10-19 08:43 | Outpatient (CLI) | payer MEDICARE, SELFPAY ==
[2024-10-19 08:59] LABS: Basophils Absolute Auto 0.2 K/mm3 (0.0-0.1); Basophils Percent Auto 2.2 % (0.2-1.2); Eosinophils Absolute Auto 0.7 K/mm3 (0-0.3); Eosinophils Percent Auto 7.2 % (0-4.4); Hematocrit 36.3 % (42.0-52.0); Immature Granulocyte Absolute 0.01 K/mm3 (0.00-0.031); Immature Granulocyte Percent A 0.1 % (0-0.5); Lymphocytes Absolute Auto 3.62 K/mm3 (0.9-3.2); Lymphocytes Percent Auto 39.8 % (18.3-44.2); Mean Corpuscular HGB Conc 33.1 g/dl (32-36); Mean Corpuscular Hemoglobin 28.5 pg (26-34); Mean Corpuscular Volume 86.2 fl (80-100); Mean Platelet Volume 10.5 fl (7.4-10.4); Monocytes Absolute Auto 0.7 K/mm3 (0.1-0.6); Monocytes Percent Auto 7.2 % (2.6-8.5); Neutrophils Percent Auto 43.5 % (45.5-73.1); Platelet Count Result 307 k/mm3 (150-375); Red Blood Count 4.21 M/mm3 (4.6-6.20); Red Cell Distribution Width 15.9 % (11.5-14.5); White Blood Count 9.1 K/mm3 (4.5-10.0)
--- OUTSIDE RECORDS SUMMARY | 2024-10-19 09:06 | XMS_ITS | Encounter Summary ---
Author Organization [facility] Address [address] [place] [address] Care Team Providers Care Cupola Melter Name Role Phone Hillary Apple MD Unavailable [phone] Tony Dumont MD Unavailable [phone] Maryjo ReinosoW Unavailable Unavailable Madyson Clay PharmD Unavailable Unavaila Dana Galicia SUPERVISOR LINE DEPARTMENT-SHARED SERVICES MANAGER Unavailable + [phone] Tiffanie Nguyen SUPERVISOR LINE DEPARTMENT-SILVER STEWARD Unavailable [phone] Cesar Tavares MD Unavailable [phone] Joy Bob Unavailable Fanta Ran Augustine MD Primary Care Provider Tony Dumont MD Unavailable [phone] Shalini Segal MD Unavailable [phone] Stefanie Burns RN Unavailable Unavaila Fatemeh Kelly RN Unavailable Unavailable Glenn Hernandez MD Unavailable [phone] Chandana Lu MD Unavailable [phone] Reason for Visit * Reason Onset Date Comments MEDICATION REFILL 08/13/2023 Encounter Details Date Type Department Care Team (Late st Contact Info) Description 08/13/2023 Refill [facility] [address] [place] [address] Hillary Apple MD [address] [facility] OF HEMATOLOGY [place] [address] MEDICATION REFILL Social History Tobacco Use Types [...] on filedocumented in this encounter Care Teams Cupola Melter Relationship Specialty Start Date End Date Ran Nuñez MD [address] [place] [address] PCP - General Family Medicine 08/30/21 [place] [address] [place] [address] PCP - Attributed-Stefany MANRIQUEZ 03/04/23 08/21/23 Hillary Apple MD [address] [place] [address] Hematology and Oncology 03/17/19 Tony Dumont MD [facility] [place] [address] Hematology and Oncology 03/17/19 Maryjo Reinoso, PIECE MAKER Glove Brusher 03/17/19 Madyson Clay, PharmD 03/17/19 Dana Lala, SUPERVISOR LINE DEPARTMENT-SHARED SERVICES MANAGER [address] [facility] [address] [place] [address] Oncology 03/17/19 Tiffanie Nguyen, SUPERVISOR LINE DEPARTMENT-SILVER STEWARD [address] [facility] [address] [place] [address] Family Medicine 03/17/19 Cesar Tavares MD [facility] [facility] [address] [place] [address] Referring Physician Medical Oncology 03/23/19 Joy Bob 09/22/19 Tony Dumont MD [address] [place] [address] Hematology and Oncology 10/30/21 Shalini Segal MD [address] [place] [address] OF HEMATOLOGY & [place] [address] Writing Manager/Oncologist Hematology and Oncology 10/30/21 Stefanie Burns, ROSEMARY Registered Nurse 10/30/21 Fatemeh Bolaños, RN Registered Nurse 10/30/21 Chandana Lu MD [address] [place] [address] Orthopedic Surgery 03/30/24 documented as of this encounter
--- OUTSIDE RECORDS SUMMARY | 2024-10-19 09:06 | XMS_ITS | Clinical Summary ---
Author Organization [facility] Address [address] [facility] [address] [facility] [address] [facility] [address] Care Team Providers Care Product Introduction Manager Name Role Phone Ran Nuñez MD Primary [...] 2 Active fluticasone propionate (FLONASE) 50 mcg/spray [employer], Suspension nasal inhaler 2 SPRAYS IN EACH [...] Tablet 4 Active naloxone (NARCAN) 4 mg/spray [employer], Non-Aerosol EMERGENCY USE ONLY: Administer 1 spray [...] Encounters Date Type Department Care Team Description 10/13/2024 External Device Data STL ABSTRACTION Provider, Abstract 10/12/2024 External Device Data STL ABSTRACTION Provider, Abstract 10/09/2024 External Device Data STL ABSTRACTION Provider, Abstract 10/08/2024 External Device Data STL ABSTRACTION Provider, Abstract 10/05/2024 External Device Data ST[facility] ABSTRACTION Provider, Abstract 09/22/2024 External Device Data STL ABSTRACTION Provider, Abstract 09/09/2024 Abstract [facility] Oncology and Hematology [facility] [address] [place] [address] Cesar Tavares MD 09/09/2024 Telephone [facility] Oncology and Hematology [place] [address] [place] [address] Cesar Tavares MD Disability Paperwork 09/07/2024 External Device Data ST[facility] ABSTRACTION Provider, Abstract 09/01/2024 External Device Data STL ABSTRACTION Provider, Abstract 08/26/2024 External Device Data STL ABSTRACTION Provider, Abstract 08/08/2024 Refill [facility] Oncology and Hematology [place] [address] [facility] [address] [place] [address] Cesar Tavares MD from Last 3 Months Family History Medical History Relation Name Comments Diabetes Mother Diabetes Sister 1 Relation Name Status Comments Father Mother Sister 1 Alive Sister 2 Alive Social History Tobacco Use Types Packs/Day Years Used Date Smoking Tobacco: Former Cigarettes 2 10 1 7 - 2006 Smokeless Tobacco: Current Snuff Tobacco Cessation:Ready to [...] Care Team (Late st Contact Info) Description 10/19/2024 9:15 AM CDT Office Visit [facility] Oncology and Hematology - [place] [address] [place] [address] Cesar Tavares MD [address] [facility] [address] [place] [address] Arrived Health Maintenance Due Date Last Done Comments Pre-Diabetes and Diabetes Screening 1970 COLORECTAL SCREENING 2015 Colorectal Cancer Screening 2015 FIT-DNA Q 3 years 2015 FIT/FOBT Q 1 year 2015 Flex Sig/CT Colonography Q 5 years 2015 INFLUENZA VACCINE (#1) 2024 05/22/2022, 2018 COVID-19 Vaccine ( - 2023-2 5 season) 2024 05/22/2022, 12/20/2021, 08/30/2021, Additional history exists Medicare Ad[place] ([place]) Preventative Visit/Annual Wellness Visit 08/04/2024 DTAP/TDAP/TD VACCINES (4 - Tdap) 02/15/2031 02/15/2021, 09/28/2020, 07/14/2020 Abdominal Aortic Aneurysm (A AA) Screening Completed 07/26/2019 ZOSTER VACCINE Completed 09/28/2020, 07/14/2020 HEPATITIS B VACCINES Completed 08/30/2021, 09/28/2020, 07/14/[address] [place] [address] [id number] [employer] CHO[employer] [facility] Care Teams Product Introduction Manager Relationship Specialty Start Date End Date Ran Nuñez MD [address] [place] [address] PCP - General Family Practice 08/15/17
--- OUTSIDE RECORDS SUMMARY | 2024-10-19 09:06 | XMS_ITS | Encounter Summary ---
Author Organization [facility] Address [address] [place] [address] Care Team Providers Care Mold Burner Name Role Phone Hillary Apple MD Unavailable [phone] Bill Ferrera MD Unavailable [phone] Tony Dumont MD Unavailable [phone] Shalini Segal MD Unavailable [phone] Karie Jones RN Unavailable Unavailable Maryjo Reinoso LCSW Unavailable Unavailable Madyson Clay PharmD Unavailable Unavaila Dana Galicia WEED CONTROLLER-MANAGER OFFICE SERVICES Unavailable + [phone] Mckinley Silver-C Unavailable Unavail able Patrick, Tiffanie Seymour WEED CONTROLLER-AMR PHYSICIAN Unavailable [phone] Stephanie Mahoney RN Unavailable Unavailable Alycia Galvan RN Unavailable UnavailRan Mejía MD Primary Care Provider Cesar Tavares MD Unavailable [phone] Karie Jones RN Unavailable Unavailable Joy Bob Unavailable Fanta Addison Weinstein PharmD Unavailable Unavailab Alida Chang WEED CONTROLLER-AMR PHYSICIAN Primary Care Provider Ran Nuñez MD Primary Care Provider Tony Dumont MD Unavailable [phone] Shalini Segal MD Unavailable [phone] Stefanie Burns RN Unavailable Unavaila Fatemeh Kelly RN Unavailable Unavailable Glenn Hernandez MD Unavailable Chandana Lu MD Unavailable Encounter Details Date Type Department Care Team (Late st Contact Info) Description 03/23/2019 Lab Requisition [facility] Pathology Lab [address] [place] [address] Ulises Howell MD [address] [address] Non-Hodgkin lymphoma (HCC) Social History Tobacco Use [...] AM CDT) Case Report Flow Cytometry Case: [id number] Authorizing Provider: Ulises Howell MD Collected: 03/23/2019 10:40 AM Ordering Location: [facility] Pathology Lab Received: 03/23/2019 01:04 PM Pathologist: Alecia Neri MD Specimen: Bone Marrow 03/24/2019 11:14 AM CDT [facility] PATHOLOGY LAB Final Diagnosis Bone marrow, flow cytometric immunophenotypic analysis: - CD5-negative, PB85-nlkinkle mature B-cell lymphoma. - See interpretation. 03/24/2019 [...] cytometry specimen is reviewed for quality control systems manager purposes. In summary, the bone marrow specimen shows evidence of involvement by a CD5-negative, UH46-rhjlqwna mature B-cell lymphoma. Correlation with additional clinical information, the concurrent bone marrow biopsy specimen, and relevant cytogenetic/molecu lar testing is required for further classification. KR 03/24/2019 11:14 AM [facility] PATHOLOGY LAB Flow Cytometry Results Differential Result Comment Flow Cell Count /uL 30,000 Total Viability % 95.0 Lymphocytes % 11 Dim CD45 Region % 3 Monocytes % 3 Granulocytes % 80 03/24/2019 11:14 AM [facility] Reason for test Non-Hodgkin lymphoma 202.80 03/24/2019 11:14 AM [facility] PATHOLOGY LAB Client Specimen ID # [id number] 03/24/2019 11:14 AM [facility] PATHOLOGY LAB Number of markers 13 were performed. A-1 Flow CD3 A-3 Flow CD10 A-5 Flow CD20 A-6 Flow CD23 A-11 Flow CD25 A-12 Flow CD103 A-13 Flow CD11c A-2 Flow CD5 A-4 Flow CD19 A-7 Flow CD34 A-8 Flow CD45 A-9 [place]oy[place]+CD19+ A-10 Lambda+CD19+ 03/24/2019 11:14 AM [facility] PATHOLOGY LAB Disclaimer Test performed at [facility], [address] [place] [address], [address]. *The established laboratory minimum viability is 70%. [...] LAB Embedded Images 9 11:14 AM CDT [facility] PATHOLOGY LAB Pathology/Cytolo gy BONE MARROW SPECIMEN / Unknown 03/23/2019 10:40 AM CDT 03/23/2019 1:04 PM CDT Ulises Howell MD LAB - PATHOLOGY/CYTO LOGY ORDERABLES Performing Organization Address City/State/[facility] Co de Phone Number [facility] PATHOLOGY LAB [address] [place], [place] [address] [phone] documented in this encounter Visit Diagnoses Diagnosis [...] COVID-19 Confirmed 03/06/2020 07/14/2020 0 4:33 AM CENTRAL OFFICE INSPECTOR COVID-19 Under Investigation 03/07/2020 03/07/2020 03/09/2020 8:54 AM CDT COVID-19 Under Investigation 03/29/2020 03/29/2020 03/30/2020 9:42 AM CDT COVID-19 Confirmed 08/31/2020 08/31/2020 1 4:34 AM CENTRAL OFFICE INSPECTOR COVID-19 Confirmed 09/28/2020 09/28/2020 1 4:33 AM CENTRAL OFFICE INSPECTOR COVID-19 Under Investigation 11/16/2020 11/16/2020 11/16/2020 6:52 PM CDT COVID-19 Confirmed 11/16/2020 11/16/2020 1 4:35 AM CDT COVID-19 Under Investigation 12/20/2020 12/20/2020 12/20/2020 6:23 PM CDT COVID-19 Under Investigation 04/21/2021 04/21/2021 2021 6:42 AM CDT documented as of this encounter Care Teams Mold Burner Relationship Specialty Start Date End Date Ran Nuñez MD [address] [place] [address] PCP - General Family Medicine 03/22/19 12/22/20 Alida Marshall APRN-AMR PHYSICIAN [address] [facility] [place] [address] PCP - General Family Medicine 12/23/20 08/29/21 Ran Nuñez MD [address] [place] [address] PCP - General Family Medicine 08/30/21 [place] [address] [place] [address] PCP - [facility] 03/04/23 08/21/23 Hillary Apple MD [address] [place] [address] Hematology and Oncology 03/17/19 Bill Ferrera MD [address] [place] [address] Hematology and Oncology 03/17/19 08/27/21 Tony Dumont MD [address] [place] [address] Hematology and Oncology 03/17/19 Shalini Segal MD [address] [place] [address] Hematology and Oncology 03/17/19 09/29/19 Karie Jones, RN Registered Nurse 03/17/19 09/21/19 Maryjo Reinoso, PAPERHANGER PIPE Senior Sales Administrator 03/17/19 Madyson Clay, PharmD 03/17/19 Dana Lala, WEED CONTROLLER-MANAGER OFFICE SERVICES [address] [facility] 2[place] [address] Oncology 03/17/19 Mckinley Silver PA-C [facility] [place] [address] Physician Electrical Inspector 03/17/19 09/08/19 Tiffanie Nguyen, WEED CONTROLLER-AMR PHYSICIAN [facility] [place] [address] Family Medicine 03/17/19 Stephanie Mahoney, RN Registered Nurse 03/17/19 10/29/21 Alycia Galvan, RN 03/17/19 10/29/21 Cesar Tavares MD [address] [place] [address] Referring Physician Medical Oncology 03/23/19 Karie Jones, RN Registered Nurse 06/08/19 10/29/21 Joy Bob 09/22/19 Addison hSea, PharmD Pharmacist 09/22/19 10/29/21 Tony Dumont MD [address] [place] [address] Hematology and Oncology 10/30/21 Shalini Segal MD [address] OF HEMATOLOGY & [place] [address] Senior Field Service Engineer/Oncologis t Hematology and Oncology 10/30/21 Stefanie Burns, RN Registered Nurse 10/30/21 Fatemeh Bolaños RN Registered Nurse 10/30/21 Chandana uL MD [address] [place] [address] Orthopedic Surgery 03/30/24 documented as of this encounter
--- OUTSIDE RECORDS SUMMARY | 2024-10-19 09:06 | XMS_ITS | Encounter Summary ---
Author Organization [facility] [email or web address] Address [address] [place] [address] Care Team Providers Care Back Up Scan Coordinator Name Role Phone Ran Nuñez MD Primary Care Provider Encounter Details Date Type Department Care Team ([facility] Contact Info) Description 12/19/2022 Abstract [facility] Oncology and Hematology [facility] [address] [place] [address] Chuck Aguilera, ROSEMARY Social History [...] Upcoming Encounters Date Type Department Care Team ([facility] Contact Info) Description 10/19/2024 9:15 AM CDT Office Visit [facility] Oncology and Hematology Mina [address] [place] [address] Cesar Tavares MD [address] [facility] [address] [place] [address] Arrived documented as of this encounter Visit Diagnoses Not on filedocumented in this encounter Care Teams Back Up Scan Coordinator Relationship Specialty Start Date End Date Ran Nuñez MD [address] [place] [address] PCP - General Family Practice 08/15/17 documented as of this encounter
--- OUTSIDE RECORDS SUMMARY | 2024-10-19 09:06 | XMS_ITS | Continuity of Care Document ---
Author Organization [facility] Address [address] [place] [address] [place] [address] Phone Care Team Providers Care Antique Repairer Name Role Phone Darcy Yao OD Unavailable [...] Fundus Photos 022 Office/outpatient Visit, [facility] Purchases SV Plastic Sphcyl Laona +/-4d, .12-2d Oc Anti-reflective Coating Advance Directives Directive Yes / No Effective Date File Name No Information Encounters Encounter Description Practice Location Reason(s) For Visit Diagnoses Date Provider Providers Copied on Encounter Office/outpat ient Visit, [facility], [address] [place] [address] [address], [place], [place], [id number], tel:[phone] SEC Andrea Patel ANDROID DEVELOPER 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 [address] [place] [address], [address], [place], [place], [id number], . tel:[phone] Referring Provider: Darcy Levy, [address] [place] [address] [address], [place], [address] . tel:[phone] [facility], [facility], [address] [place], [place] [address] [address], [place], [place], [id number], tel:[phone] SEC Andrea Patel No Information [facility] . [address] [facility], [address], [place], [place], [address], . tel:[phone] Referring Provider: Darcy Levy, [address] [place] [address] [address], [place], [address] . tel:[phone] sulting Provider: Alan Mora, [address] [place], [address] . tel:[phone] Family History Family Member Type Diagnosis Age At Onset No Information Payers Payer name Insurance type Covered constitution party ID Radha laughlin(s) [employer] [id number] Social History Type Description Quantity Date Captured Comments Alcohol Use Details Caffeine Use Details Tobacco Use Status Chews tobacco Smoking Status Unknown if ever smoked Non-Smoking Tobacco Use Details Chewing: No Details Available Chewing: No Details Available Sex Male Chief Complaint And Reason For Visit From encounter dated 05/31/2022 13:30'. ANDROID DEVELOPER complete exam (chief complaint). Description: The 52 [...] Date Complaint History Of Prese nt Illness ANDROID DEVELOPER complete exam The 52 year old patient presents for evaluation of ANDROID DEVELOPER complete exam in the right eye and [...]
--- OUTSIDE RECORDS SUMMARY | 2024-10-19 09:06 | XMS_ITS | Encounter Summary ---
Author Organization [facility] Address [address] [facility] [place] [address] Care Team Providers Care Automobile Upholsterer Name Role Phone Hillary Apple MD Unavailable [phone] Tony Dumont MD Unavailable [phone] Maryjo ReinosoW Unavailable Unavailable Madyson Clay PharmD Unavailable Unavaila Dana Galicia WATER PLANT PUMP OPERATOR SUPERVISOR-RELIEF PILOT Unavailable + [phone] Tiffanie Nguyen WATER PLANT PUMP OPERATOR SUPERVISOR-PUBLIC RELATIONS ASSOCIATE Unavailable [phone] Cesar Tavares MD Unavailable [phone] Joy Bob Unavailable Fanta Ran Augustine MD Primary Care Provider Tony Dumont MD Unavailable [phone] Shalini Segal MD Unavailable Stefanie Burns RN Unavailable Unavaila Fatemeh Kelly RN Unavailable Unavailable Glenn Hernandez MD Unavailable [phone] Chandana Lu MD Unavailable [phone] Reason for Visit * Reason Onset Date Comments MEDICATION REFILL 08/13/2023 Encounter Details Date Type Department Care Team (Late st Contact Info) Description 08/13/2023 Refill [facility] [address] [place] [address] Tiffanie Nguyen APRN-PUBLIC RELATIONS ASSOCIATE [address] [place] [address] MEDICATION REFILL Social History Tobacco Use Types [...] transplant documented in this encounter Care Teams Automobile Upholsterer Relationship Specialty Start Date End Date Ran Nuñez MD [address] [place] [address] PCP - General Family Medicine 08/30/21 [place] [address] [facility] [place] [address] [address] PCP - Attributed-Stefany MANRIQUEZ 03/04/23 08/21/23 Hillary Apple MD [address] [place] [address] Hematology and Oncology 03/17/19 Tony Dumont MD [address] [place] [address] Hematology and Oncology 03/17/19 Maryjo Reinoso, CUSTOMER RELATIONS COORDINATOR Telephone Repairer 03/17/19 Madyson Clay, PharmD 03/17/19 Dana Lala, WATER PLANT PUMP OPERATOR SUPERVISOR-RELIEF PILOT [address] [facility] 2nd [place] [address] Oncology 03/17/19 Tiffanie Nguyen, WATER PLANT PUMP OPERATOR SUPERVISOR-PUBLIC RELATIONS ASSOCIATE [address] [facility] 2nd [place] [address] Family Medicine 03/17/19 Cesar Tavares MD [address] [place] [address] [address]nd [place] [address] Referring Physician Medical Oncology 03/23/19 Joy Bob 09/22/19 Tony Dumont MD [address] [place] [address] Hematology and Oncology 10/30/21 Shalini Segal MD [facility] [place] [address] [employer] Farm Crew Boss/Oncologist Hematology and Oncology 10/30/21 Stefanie Burns, RN Registered Nurse 10/30/21 Fatemeh Bolaños, RN Registered Nurse 10/30/21 Chandana Lu MD [address] [place] [address] Orthopedic Surgery 03/30/24 documented as of this encounter
--- OUTSIDE RECORDS SUMMARY | 2024-10-19 09:06 | XMS_ITS | Encounter Summary ---
Author Organization [facility] Address [address] [facility] [place] [address] Care Team Providers Care Hydraulic Jack Mechanic Name Role Phone Hillary Apple MD Unavailable [phone] Tony Dumont MD Unavailable [phone] Maryjo ReinosoW Unavailable Unavailable Madyson Clay PharmD Unavailable Unavaila Dana Galicia MUSSEL FARMER-ROLLER SHOP UTILITY WORKER Unavailable + [phone] Tiffanie Nguyen MUSSEL FARMER-COMPUTATIONAL BIOLOGIST Unavailable [phone] Cesar Tavares MD Unavailable [phone] Joy Bob Unavailable Fanta Ran Augustine MD Primary Care Provider Tony Dumont MD Unavailable [phone] Shalini Segal MD Unavailable [phone] Stefanie Burns RN Unavailable Unavaila Fatemeh Kelly RN Unavailable Unavailable Glenn Hernandez MD Unavailable [phone] Chandana Lu MD Unavailable [phone] Reason for Visit * Reason Onset Date Comments MEDICATION REFILL 04/24/2023 Encounter Details Date Type Department Care Team (Late st Contact Info) Description 04/24/2023 Refill [facility] [address] [place] [address] Tiffanie Nguyen APRN-COMPUTATIONAL BIOLOGIST [address] [place] [address] MEDICATION REFILL Social History Tobacco Use Types [...] (RLS) documented in this encounter Care Teams Hydraulic Jack Mechanic Relationship Specialty Start Date End Date Ran Nuñez MD [address] [place] [address] PCP - General Family Medicine 08/30/21 [place] [address] [facility] [place] [address] PCP - Fatuma-Stefany MANRIQUEZ 03/04/23 08/21/23 Hillary Apple MD [address] [place] [address] Hematology and Oncology 03/17/19 Tony Dumont MD [address] [place] [address] Hematology and Oncology 03/17/19 Maryjo Reinoso, HELMET HAT SWEATBAND PUNCHER Logging Specialist 03/17/19 Madyson Clay, PharmD 03/17/19 Dana Lala, MUSSEL FARMER-ROLLER SHOP UTILITY WORKER [address] [facility] 2nd [place] [address] Oncology 03/17/19 Tiffanie Nguyen, MUSSEL FARMER-COMPUTATIONAL BIOLOGIST [address] [facility] 2nd [place] [address] Family Medicine 03/17/19 Cesar Tavares MD [address] [facility] 2nd [place] [address] Referring Physician Medical Oncology 03/23/19 Joy Bob 09/22/19 Tony Dumont MD [address] [place] [id number] Hematology and Oncology 10/30/21 Shalini Segal MD [facility] [address] [facility] OF [facility]EMAT[facility] [place] [address] Turbine Attendant/Oncologist Hematology and Oncology 10/30/21 Stefanie Burns, RN Registered Nurse 10/30/21 Fatemeh Bolaños, RN Registered Nurse 10/30/21 Chandana Lu MD [address] [place] [address] Orthopedic Surgery 03/30/24 documented as of this encounter
--- OUTSIDE RECORDS SUMMARY | 2024-10-19 09:06 | XMS_ITS | Encounter Summary ---
Author Organization [facility] Address [address] [facility] [place] [address] Care Team Providers Care Director Zone Name Role Phone Hillary Apple MD Unavailable [phone] Tony Dumont MD Unavailable [phone] Maryjo ReinosoW Unavailable Unavailable Madyson Clay PharmD Unavailable Unavaila Dana Galicia BRASS MOLDER-MOBILE HEALTH VEHICLE OPERATOR Unavailable + [phone] Tiffanie Nguyen BRASS MOLDER-MEDICAL ASSISTANT INTERNAL MEDICINE Unavailable [phone] Cesar Tavares MD Unavailable [phone] Joy Bob Unavailable Fanta Ran Augustine MD Primary Care Provider Tony Dumont MD Unavailable [phone] Shalini Segal MD Unavailable [phone] Stefanie Burns RN Unavailable Unavaila Fatemeh Kelly RN Unavailable Unavailable Glenn Hernandez MD Unavailable [phone] Chandana Lu MD Unavailable [phone] Reason for Visit * Reason Onset Date Comments MEDICATION REFILL 12/24/2021 Encounter Details Date Type Department Care Team (Late st Contact Info) Description 12/24/2021 Refill [facility] [address] [place] [address] Tiffanie Nguyen APRN-MEDICAL ASSISTANT INTERNAL MEDICINE [address] [place] [address] MEDICATION REFILL Social History Tobacco Use Types [...] (RLS) documented in this encounter Care Teams Director Zone Relationship Specialty Start Date End Date Ran Nuñez MD [address] [place] [address] PCP - General Family Medicine 08/30/21 [place] [address] [facility] [place] [address] PCP - Attributed-Stefany MANRIQUEZ 03/04/23 08/21/23 Hillary Apple MD [address] [place] [address] Hematology and Oncology 03/17/19 Tony Dumont MD [address] [place] [address] Hematology and Oncology 03/17/19 Mrayjo Reinoso, SCOOPING MACHINE TENDER Rides Attendant 03/17/19 Madyson Clay, PharmD 03/17/19 Dana Lala, BRASS MOLDER-MOBILE HEALTH VEHICLE OPERATOR [address] [place] [address] Oncology 03/17/19 Tiffanie Nguyen, BRASS MOLDER-MEDICAL ASSISTANT INTERNAL MEDICINE [address] [facility] [address] [address] Family Medicine 03/17/19 Cesar Tavares MD [facility] 2[place] [address] Referring Physician Medical Oncology 03/23/19 Joy Bob 09/22/19 Tony Dumont MD [address] [place] [address] Hematology and Oncology 10/30/21 Shalini Segal MD [address] [place] [address] OF HEMATOLOGY & [place] [address] Industrial Aerial Installer/Oncologist Hematology and Oncology 10/30/21 Stefanie Burns, RN Registered Nurse 10/30/21 Fatemeh Bolaños, RN Registered Nurse 10/30/21 Chandana Lu MD [address] [place] [address] Orthopedic Surgery 03/30/24 documented as of this encounter
--- OUTSIDE RECORDS SUMMARY | 2024-10-19 09:06 | XMS_ITS | Encounter Summary ---
Author Organization [facility] Address [address] [facility] [place] [address] Care Team Providers Care Garment Parts Cutter Machine Name Role Phone Hillary Apple MD Unavailable [phone] Tony Dumont MD Unavailable [phone] Maryjo ReinosoW Unavailable Unavailable Madyson Clay PharmD Unavailable Unavaila Dana Galicia SQUARING SHEAR OPERATOR-CHANNEL MARKETING SPECIALIST Unavailable + [phone] Tiffanie Nguyen SQUARING SHEAR OPERATOR-WATCH ADJUSTER Unavailable [phone] Cesar Tavares MD Unavailable [phone] Joy Bob Unavailable Fanta Ran Augustine MD Primary Care Provider Tony Dumont MD Unavailable [phone] Shalini Segal MD Unavailable [phone] Stefanie Burns RN Unavailable Unavaila Fatemeh Kelly RN Unavailable Unavailable Glenn Hernandez MD Unavailable [phone] Chandana Lu MD Unavailable [phone] Reason for Visit * Reason Onset Date Comments MEDICATION REFILL 04/24/2023 Encounter Details Date Type Department Care Team (Late st Contact Info) Description 04/24/2023 Refill [facility] [address] [place] [address] Hillary Apple MD [address] [facility] OF HEMATOLOGY & [place] [address] MEDICATION REFILL Social History Tobacco Use Types [...] on filedocumented in this encounter Care Teams Garment Parts Cutter Machine Relationship Specialty Start Date End Date Ran Nuñez MD [address] [place] [address] PCP - General Family Medicine 08/30/21 [place] [address] [place] [address] PCP - Attributed-Stefany MANRIQUEZ 03/04/23 08/21/23 Hillary Apple MD [address] [place] [address] Hematology and Oncology 03/17/19 Tony Dumont MD [facility] [place] [address] Hematology and Oncology 03/17/19 Maryjo Reinoso, TERMINAL OPERATIONS MANAGER Optics Engineer 03/17/19 Madyson Clay, PharmD 03/17/19 Dana Lala, SQUARING SHEAR OPERATOR-CHANNEL MARKETING SPECIALIST [address] [facility] 2[place] [address] Oncology 03/17/19 Tiffanie Nguyen, SQUARING SHEAR OPERATOR-WATCH ADJUSTER [address] [facility] 2[place] [address] Family Medicine 03/17/19 Cesar Tavares MD [facility]5 [facility] 2nd [place] [address] Referring Physician Medical Oncology 03/23/19 Joy Bob 09/22/19 Tony Dumont MD [address] [place] [address] Hematology and Oncology 10/30/21 Shalini Segal MD [address] [place] [address] OF HEMATOLOGY & [place] [address] Abstract Maker/Oncologist Hematology and Oncology 10/30/21 Stefanie Burns, ROSEMARY Registered Nurse 10/30/21 Fatemeh Bolaños, RN Registered Nurse 10/30/21 Chandana Lu MD [address] [place] [address] Orthopedic Surgery 03/30/24 documented as of this encounter
--- OUTSIDE RECORDS SUMMARY | 2024-10-19 09:06 | XMS_ITS | Encounter Summary ---
Author Organization [facility] [employer] Address [address] [place] [address] Care Team Providers Care Graphic Technician Name Role Phone Ran Nuñez MD Primary Care Provider Reason for Visit * Reason Comments Medication Refill Encounter Details Date Type Department Care Team (Late Contact Info) Description 07/17/2019 Refill [facility] Oncology and Hematology [address] [place] [address] Cesar Tavares MD [address] [facility] [address] [place] [address] Social History Tobacco Use Types Packs/Day [...] Department Care Team (Late Contact Info) Description 10/19/2024 9:15 AM CDT Office Visit [facility] Oncology and Hematology [address] [place] [address] Cesar Tavares MD [address] [facility] [address] [address] [place] [address] Arrived documented as of this encounter Visit Diagnoses Not on filedocumented in this encounter Care Teams Graphic Technician Relationship Specialty Start Date End Date Ran Nuñez MD [address] [place] [address] PCP - General Family Practice 08/15/17 documented as of this encounter
--- OUTSIDE RECORDS SUMMARY | 2024-10-19 09:06 | XMS_ITS | Encounter Summary ---
Author Organization [facility] Address [address] [place] [place] [address] Care Team Providers Care Any Commodity Sales Deliverer Name Role Phone Hillary Apple MD Unavailable [phone] Bill Ferrera MD Unavailable [phone] Tony Dumont MD Unavailable [phone] Shalini Segal MD Unavailable [phone] Karie Jones RN Unavailable Unavailable Maryjo Reinoso LCSW Unavailable Unavailable Madyson Clay PharmD Unavailable Unavaila Dana Galicia TONGUE AND GROOVE MACHINE SETTER-CDA TEACHER Unavailable + [phone] Mckinley Silver-C Unavailable Unavail able Patrick, Tiffanie [place] TONGUE AND GROOVE MACHINE SETTER-BAG BLEACHER Unavailable [phone] Stephanie Mahoney RN Unavailable Unavailable Alycia Galvan RN Unavailable UnavailRan Mejía MD Primary Care Provider Cesar Tavares MD Unavailable [phone] Karie Jones RN Unavailable Unavailable Joy Bob Unavailable Fanta Addison Weinstein PharmD Unavailable Unavailab Alida Chang TONGUE AND GROOVE MACHINE SETTER-BAG BLEACHER Primary Care Provider Ran Nuñez MD Primary Care Provider Tony Dumont MD Unavailable [phone] Shalini Segal MD Unavailable Stefanie Burns RN Unavailable Unavaila Fatemeh Kelly RN Unavailable Unavailable Glenn Hernandez MD Unavailable Chandana Lu MD Unavailable Encounter Details Date Type Department Care Team (Late st Contact Info) Description 03/24/2019 Lab Requisition [facility] Care Pathology Lab [address] [place] [address] Roseline Higgins MD [address] [place] [address] Social History Tobacco Use Types Packs/Day Years [...] Report Bone Marrow Patholog y Report Case: [id number] Authorizing Provider: Roseline Higgins MD Collected: 03/23/2019 10:40 AM Ordering Location: [facility] Pathology Lab Received: 03/24/2019 03:08 PM Pathologist: [...] - See microscopic description. 03/25/2019 1:01 PM [facility] PATHOLOGY [facility] Comment In summary, the bone [...] testing is required. KR 03/25/2019 1:01 PM [facility] Peripheral Smear Description CBC Data: [...] decreased. Platelet morphology: normal. 03/25/2019 1:01 PM [facility] Bone Marrow Aspirate Differential [...] (by special stain): decreased. 03/25/2019 1:01 PM [facility] PATH[facility] Bone Marrow Core Biopsy [...] the bone marrow core biopsy in the [facility] Department of Pathology. All controls are [...] and fungal organisms, respectively. 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 03/25/2019 1:01 PM [facility] Clinical History 48 year old man with a history of B-cell lymphoma, lymphadenopathy, and splenomegaly, status-post treatment. 03/25/2019 1:01 PM [facility] Materials Received Received are 20 slides and 3 blocks labeled as [id number] along with the outside pathology report. The [place] [address]. All materials are returned to the referring institution, along with a copy of our final report. 03/25/2019 1:01 PM [facility] Disclaimer The performance characteristics of all immunohistochemical and indirect immunofluorescence stains (if any) cited in this report were determined by the Histopathology Laboratory of [facility]. Some of these tests were developed by [...] interpretation of this case is performed by [facility] Pathology at [facility], [address] [place] [address]. 03/25/2019 1:01 PM CDT [facility] PATHOLOGY LAB Embedded Images 03/25/2019 1:01 PM CDT [facility] PATHOLOGY LAB Pathology/Cytology SPECIMEN FROM BONE MARROW [...] - PATHOLOGY/CYTO LOGY ORDERABLES Performing Organization Address City/State/[facility] Co de Phone Number [facility] PATHOLOGY LAB [address] [place] [id number] [place] [address] documented in this encounter Visit Diagnoses Not [...] COVID-19 Confirmed 03/06/2020 07/14/2020 0 4:33 AM FURNACE REPAIRER COVID-19 Under Investigation 03/07/2020 03/07/2020 03/09/2020 8:54 AM CDT COVID-19 Under Investigation 03/29/2020 03/29/2020 03/30/2020 9:42 AM CDT COVID-19 Confirmed 08/31/2020 08/31/2020 4:34 AM FURNACE REPAIRER COVID-19 Confirmed 09/28/2020 09/28/2020 4:33 AM FURNACE REPAIRER COVID-19 Under Investigation 11/16/2020 11/16/2020 11/16/2020 6:52 PM CDT COVID-19 Confirmed 11/16/2020 11/16/2020 4:35 AM CDT COVID-19 Under Investigation 12/20/2020 12/20/2020 12/20/2020 6:23 PM CDT COVID-19 Under Investigation 04/21/2021 04/21/2021 2021 6:42 AM CDT documented as of this encounter Care Teams Any Commodity Sales Deliverer Relationship Specialty Start Date End Date Ran Nuñez MD [address] [place] [address] PCP - General Family Medicine 03/22/19 12/22/20 Alida Marshall APRN-BAG BLEACHER [address] [facility] OF HEMATOLOGY & [place] [address] PCP - General Family Medicine 12/23/20 08/29/21 Ran Nuñez MD [address] [place] [address] PCP - General Family Medicine 08/30/21 [place] [address] [place] [address] PCP - Attributed-Stefany MANRIQUEZ 03/04/23 08/21/23 Hillary Apple MD [address] [place] [address] Hematology and Oncology 03/17/19 Bill Ferrera MD [address] [place] [address] Hematology and Oncology 03/17/19 08/27/21 Tony Dumont MD [address] [place] [address] Hematology and Oncology 03/17/19 Shalini Segal MD [address] [place] [address] Hematology and Oncology 03/17/19 09/29/19 Karie Jones, RN Registered Nurse 03/17/19 09/21/19 Maryjo Reinoso, HOT STRIP MILL INSPECTOR Hay Sorter 03/17/19 Madyson Clay, PharmD 03/17/19 Dana Lala TONGUE AND GROOVE MACHINE SETTER-CDA TEACHER [address] [place] [address] [address] [place] [address] Oncology 03/17/19 Mckinley Silver PA-C [address] [place] [address] [address] [place] [address] Physician Elementary Art Teacher 03/17/19 09/08/19 Tiffanie Nguyen APRN-BAG BLEACHER [address] [place] [address] [address] [place] [address] Family Medicine 03/17/19 Stephanie Mahoney, RN Registered Nurse 03/17/19 10/29/21 Alycia Galvan, ROSEMARY 03/17/19 10/29/21 Cesar Tavares MD [address] [place] [address] [place] [address] Referring Physician Medical Oncology 03/23/19 Karie Jones, RN Registered Nurse 06/08/19 10/29/21 Joy Bob 09/22/19 Addison Shea, PharmD Pharmacist 09/22/19 10/29/21 Tony Dumont MD [address] [place] [address] Hematology and Oncology 10/30/21 Shalini Segal MD [address] [facility] OF HEMATOLOGY [place] [address] Customer Support Executive/Oncologis t Hematology and Oncology 10/30/21 Stefanie Burns, RN Registered Nurse 10/30/21 Fatemeh Bolaños RN Registered Nurse 10/30/21 Chandana Lu MD [address] [place] [address] Orthopedic Surgery 03/30/24 documented as of this encounter
--- OUTSIDE RECORDS SUMMARY | 2024-10-19 09:06 | XMS_ITS | Encounter Summary ---
Author Organization [facility] Address [address] [place] [address] Care Team Providers Care Tin Recovery Worker Name Role Phone Hillary Apple MD Unavailable [phone] Bill Ferrera MD Unavailable [phone] Tony Dumont MD Unavailable [phone] Maryjo Reinoso [facility] Unavailable Unavailable Madyson Clay PharmD Unavailable Unavaila Dana Galicia DRYING EQUIPMENT OPERATOR-PROCEDURES NURSE Unavailable [phone] Tiffanie Nguyen DRYING EQUIPMENT OPERATOR-AUDIENCE COORDINATOR Unavailable [phone] Stephanie Mahoney RN Unavailable Unavailable Alycia Galvan RN Unavailable UnavailRan Mejía MD Primary Care Provider Cesar Tavares MD Unavailable [phone] Karie Jones RN Unavailable Unavailable Joy Bob Unavailable Fanta Addison Weinstein PharmD Unavailable Unavailab Alida Chang DRYING EQUIPMENT OPERATOR-AUDIENCE COORDINATOR Primary Care Provider Ran Nuñez MD Primary Care Provider Tony Dumont MD Unavailable [phone] Shalini Segal MD Unavailable [phone] Stefanie Burns RN Unavailable Unavaila Fatemeh Kelly RN Unavailable Unavailable Glenn Hernandez MD Unavailable Chandana Lu MD Unavailable Encounter Details Date Type Department Care Team (Late st Contact Info) Description 02/10/2020 Telephone [facility] [address] [place] [address] Stephanie Mahoney RN Social History Tobacco Use [...] stool as of last night. Notified BMT TIRE CURER Tiffanie and we are going to hold [...] Confirmed 03/06/2020 07/14/2020 0 4:33 AM DIRECTOR OF INTERCOLLEGIATE ATHLETICS COVID-19 Under Investigation 03/07/2020 03/07/2020 03/09/2020 8:54 AM CDT COVID-19 Under Investigation 03/29/2020 03/29/2020 03/30/2020 9:42 AM CDT COVID-19 Confirmed 08/31/2020 08/31/2020 1 4:34 AM DIRECTOR OF INTERCOLLEGIATE ATHLETICS COVID-19 Confirmed 09/28/2020 09/28/2020 1 4:33 AM DIRECTOR OF INTERCOLLEGIATE ATHLETICS COVID-19 Under Investigation 11/16/2020 11/16/2020 11/16/2020 6:52 PM CDT COVID-19 Confirmed 11/16/2020 11/16/2020 1 4:35 AM CDT COVID-19 Under Investigation 12/20/2020 12/20/2020 12/20/2020 6:23 PM CDT COVID-19 Under Investigation 04/21/2021 04/21/2021 2021 6:42 AM CDT documented as of this encounter Care Teams Tin Recovery Worker Relationship Specialty Start Date End Date Ran Nuñez MD [address] [place] [address] PCP - General Family Medicine 03/22/19 12/22/20 Alida Marshall APRN-AUDIENCE COORDINATOR [address] [facility] OF HEMATOLOGY [place] [address] PCP - General Family Medicine 12/23/20 08/29/21 Ran Nuñez MD [address] [place] [address] PCP - General Family Medicine 08/30/21 [place] [address] [place] [address] PCP - [facility] 03/04/23 08/21/23 Hillary Apple MD [address] [place] [address] Hematology and Oncology 03/17/19 Bill Ferrera MD [address] [place] [address] Hematology and Oncology 03/17/19 08/27/21 Tony Dumont MD [address] [place] [address] Hematology and Oncology 03/17/19 Maryjo Reinoso, HUMAN RESOURCES ADMIN Tongue Binder 03/17/19 Madyson Clay, PharmD 03/17/19 Dana Lala, DRYING EQUIPMENT OPERATOR-PROCEDURES NURSE [facility] [address] [place] [address] Oncology 03/17/19 Tiffanie Nguyen DRYING EQUIPMENT OPERATOR-AUDIENCE COORDINATOR [facility] [place] [address] Family Medicine 03/17/19 Stephanie Mahoney, RN Registered Nurse 03/17/19 10/29/21 Alycia Galvan, RN 03/17/19 10/29/21 Cesar Tavares MD [address] [place] [address] Referring Physician Medical Oncology 03/23/19 Karie Jones, RN Registered Nurse 06/08/19 10/29/21 Joy Bob 09/22/19 Addison Shea, PharmD Pharmacist 09/22/19 10/29/21 Tony Dumont MD [address] [place] [address] Hematology and Oncology 10/30/21 Shalini Segal MD [address] [facility] OF HEMATOLOGY & [place] [address] Delimer/Oncologis t Hematology and Oncology 10/30/21 Stefanie Burns, RN Registered Nurse 10/30/21 Fatemeh Bolaños RN Registered Nurse 10/30/21 Chandana Lu MD [address] [place] [address] Orthopedic Surgery 03/30/24 documented as of this encounter
--- OUTSIDE RECORDS SUMMARY | 2024-10-19 09:06 | XMS_ITS | Encounter Summary ---
Author Organization [facility] Address [address] [facility] [place] [address] Care Team Providers Care Talent Acquisition Specialist Name Role Phone Hillary Apple MD Unavailable [phone] Bill Ferrera MD Unavailable [phone] Tony Dumont MD Unavailable [phone] Maryjo Reinoso [facility] Unavailable Unavailable Madyson Clay PharmD Unavailable Unavaila Dana Galicia SUPERIOR COURT JUDGE-CASH APPLICATIONS COORDINATOR Unavailable [phone] JUDGE-LAND SURVEYING SURVEY WORKER Unavailable [phone] Stephanie Mahoney RN Unavailable Unavailable Alycia Galvan RN Unavailable UnavailRan Mejía MD Primary Care Provider Cesar Tavares MD Unavailable [phone] Karie Jones RN Unavailable Unavailable Joy Bob Unavailable Fanta Addison Weinstein PharmD Unavailable Unavailab Alida Chang SUPERIOR COURT JUDGE-LAND SURVEYING SURVEY WORKER Primary Care Provider Ran Nuñez MD Primary Care Provider Tony Dumont MD Unavailable [phone] Shalini Segal MD Unavailable [phone] Stefanie Burns RN Unavailable Unavaila Fatemeh Kelly RN Unavailable Unavailable Glenn Hernandez MD Unavailable Chandana Lu MD Unavailable Reason for Visit * Reason Onset Date Comments MEDICATION REFILL 10/02/2020 Encounter Details Date Type Department Care Team (Late st Contact Info) Description 10/02/2020 Refill [facility] [address] [place] [address] Hillary Apple MD [address] [facility] OF HEMATOLOGY & [place] [address] MEDICATION REFILL Social History Tobacco Use Types [...] COVID-19? No / Unsure 09/28/2020 1:10 PM GIS SPECIALIST documented as of this encounter Functional Status [...] Time COVID-19 Confirmed 09/28/2020 09/28/2020 4:33 AM GIS SPECIALIST COVID-19 Under Investigation 11/16/2020 11/16/2020 11/16/2020 6:52 PM CDT COVID-19 Confirmed 11/16/2020 11/16/2020 4:35 AM CDT COVID-19 Under Investigation 12/20/2020 12/20/2020 12/20/2020 6:23 PM CDT COVID-19 Under Investigation 04/21/2021 04/21/2021 2021 6:42 AM CDT documented as of this encounter Care Teams Talent Acquisition Specialist Relationship Specialty Start Date End Date Ran Nuñez MD [address] [place] [address] PCP - General Family Medicine 03/22/19 12/22/20 Alida Marshall APRN-LAND SURVEYING SURVEY WORKER [address] [facility] OF H[facility] & [place] [address] PCP - General Family Medicine 12/23/20 08/29/21 Ran Nuñez MD [address] [place] [address] PCP - General Family Medicine 08/30/21 [place] [address] [place] [address] PCP - Attributed-[place] 03/04/23 08/21/23 Hillary Apple MD [address] [place] [address] Hematology and Oncology 03/17/19 Bill Ferrera MD [address] [place] [address] Hematology and Oncology 03/17/19 08/27/21 Tony Dumont MD [address] [place] [address] Hematology and Oncology 03/17/19 Maryjo Reinoso, ORCHARDIST Federal Appellate Law Clerk 03/17/19 Madyson Clay, PharmD 03/17/19 Dana Lala, SUPERIOR COURT JUDGE-CASH APPLICATIONS COORDINATOR [address] [facility] 2[address] [place] [address] Oncology 03/17/19 Tiffanie Nguyen, SUPERIOR COURT JUDGE-LAND SURVEYING SURVEY WORKER [address] [facility] 2[address] [place] [address] Family Medicine 03/17/19 Stephanie Mahoney, RN Registered Nurse 03/17/19 10/29/21 Alycia Galvan, ROSEMARY 03/17/19 10/29/21 Cesar Tavares MD [address] [place] [address] [place] [address] Referring Physician Medical Oncology 03/23/19 Karie Jones, RN Registered Nurse 06/08/19 10/29/21 Joy Bob 09/22/19 Addison Shea, PharmD Pharmacist 09/22/19 10/29/21 Tony Dumont MD [address] [place] [address] Hematology and Oncology 10/30/21 Shalini Segal MD [address] [place] [address] OF HEMATOLOGY & [place] [address] Getter Operator/Oncologis t Hematology and Oncology 10/30/21 Stefanie Burns, RN Registered Nurse 10/30/21 Fatemeh Bolaños RN Registered Nurse 10/30/21 Chandana Lu MD [address] [place] [address] Orthopedic Surgery 03/30/24 documented as of this encounter
--- OUTSIDE RECORDS SUMMARY | 2024-10-19 09:07 | XMS_ITS ---
Author Organization [facility] Address [address] [place] [address] Care Team Providers Care Sterile Processing Technician Name Role Phone Hillary Apple MD Unavailable [phone] Tony Dumont MD Unavailable [phone] Maryjo Reinoso LCSW Unavailable Unavailable Madyson Clay PharmD Unavailable Unavaila Dana Galicia FORMAL WEAR RENTAL CLERK-NECKTIE OPERATOR POCKETS AND PIECES Unavailable [phone] Tiffanie Nguyen FORMAL WEAR RENTAL CLERK-INDUSTRIAL SEWER Unavailable [phone] Cesar Tavares MD Unavailable [phone] Joy Bob Unavailable Fanta Ran Augustine MD Primary Care Provider Tony Dumont MD Unavailable Shalini Segal MD Unavailable [phone] Stefanie Burns RN Unavailable Unavaila Fatemeh Kelly RN Unavailable Unavailable Chandana Lu MD Unavailable [phone] Active Problems Problem Noted Date Diagnosed [...] Discontinue Reason Plan Provider Cycles BMT CONDITIONING [id number] SCHEMA A - (BEAM) CARMUSTINE + ETOPOSIDE + CYTARABINE + MELPHALAN 10/19/19 20 08/04/2022 carmustine (BCNU) Infusioncytarabine (Cytosar) Infusionetoposide (Vepesid) 1250 mL infusionmelphalan (Alkeran) infusion Therapy Complete Rafaela Sood APRN-CNP 2 of 2 cycles started Radiation Treatments * No radiation treatments are documented for this patient in [facility]. Treatments may have been administered in another system. Lifetime Dose Tracking * Chemical Lifetime Dose Automatic Entry Manual Entr y Dose Length Product 8,650.6 mGy-cm 8,650.6 mGy-cm 0 mG y-cm
--- OUTSIDE RECORDS SUMMARY | 2024-10-19 09:07 | XMS_ITS | Encounter Summary ---
Author Organization [facility] Address [address] [facility] [place] [address] Care Team Providers Care Claim Clerk Name Role Phone Hillary Apple MD Unavailable [phone] Bill Ferrera MD Unavailable [phone] Tony Dumont MD Unavailable [phone] Shalini Segal MD Unavailable [phone] Karie Jones RN Unavailable Unavailable Maryjo Reinoso LCSW Unavailable Unavailable Madyson Clay PharmD Unavailable Unavaila Dana Galicia LAWN CARE SPECIALIST-COUNTER WAITRESS/WAITER Unavailable [phone] Tiffanie Nguyen LAWN CARE SPECIALIST-FINANCIAL REPORT SERVICE SALES AGENT Unavailable [phone] Stephanie Mahoney RN Unavailable Unavailable Alycia Galvan RN Unavailable UnavailRan Mejía MD Primary Care Provider Cesar Tavares MD Unavailable [phone] Karie Jones RN Unavailable Unavailable Joy Bob Unavailable Fanta Addison Weinstein PharmD Unavailable Unavailab Alida Chang LAWN CARE SPECIALIST-FINANCIAL REPORT SERVICE SALES AGENT Primary Care Provider Ran Nuñez MD Primary Care Provider Tony Dumont MD Unavailable [phone] Shalini Segal MD Unavailable Stefanie Burns RN Unavailable Unavaila Fatemeh Kelly RN Unavailable Unavailable Glenn Hernandez MD Unavailable [phone] Chandana Lu MD Unavailable [phone] Reason for Visit * Reason Comments Insurance Issue/question termination of insurance Encounter Details Date Type Department Care Team (Late st Contact Info) Description 09/20/2019 Telephone [facility] [address] [place] [address] Joy Bob Insurance Issue/question (termination of insurance) [...] - Joy Bob - 09/20/2019 12:18 PM ACCOUNT TECHNICIAN Called and spoke with Mr. Guillen and discussed the termination of his insurance and find out if he has obtained a different insurance plan. Mr. Guillen stated he was not aware that his plan changed and was recently told. 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 I asked Mr. Guillen if he spoke with or received any information from the HR Department about COBRA,he stated no. I asked and was giving the HR Department contact number [phone]. I informed Mr. Guillen that he will [...] and Anastasia Nice notified in inactive coverage. UNT TECHNICIAN documented in this encounter Plan of Treatment [...] COVID-19 Confirmed 03/06/2020 07/14/2020 0 4:33 AM ACCOUNT TECHNICIAN COVID-19 Under Investigation 03/07/2020 03/07/2020 03/09/2020 8:54 AM CDT COVID-19 Under Investigation 03/29/2020 03/29/2020 03/30/2020 9:42 AM CDT COVID-19 Confirmed 08/31/2020 08/31/2020 1 4:34 AM ACCOUNT TECHNICIAN COVID-19 Confirmed 09/28/2020 09/28/2020 1 4:33 AM ACCOUNT TECHNICIAN COVID-19 Under Investigation 11/16/2020 11/16/2020 11/16/2020 6:52 PM CDT COVID-19 Confirmed 11/16/2020 11/16/2020 4:35 AM CDT COVID-19 Under Investigation 12/20/2020 12/20/2020 12/20/2020 6:23 PM CDT COVID-19 Under Investigation 04/21/2021 04/21/2021 2021 6:42 AM CDT documented as of this encounter Care Teams Claim Clerk Relationship Specialty Start Date End Date Ran Nuñez MD [address] [place] [address] PCP - General Family Medicine 03/22/19 12/22/20 Alida Marshall APRN-FINANCIAL REPORT SERVICE SALES AGENT [address] [facility] OF HEMATOLOGY [place] [address] PCP - General Family Medicine 12/23/20 08/29/21 Ran Nuñez MD [address] [place] [address] PCP - General Family Medicine 08/30/21 [place] [address] [place] [address] PCP - Attributed-[place] 03/04/23 08/21/23 Hillary Apple MD [address] [place] [address] Hematology and Oncology 03/17/19 Bill Ferrera MD [address] [place] [address] Hematology and Oncology 03/17/19 08/27/21 Tony Dumont MD [address] [place] [address] Hematology and Oncology 03/17/19 Shalini Segal MD [facility] [place] [address] Hematology and Oncology 03/17/19 09/29/19 Karie Jones, RN Registered Nurse 03/17/19 09/21/19 Maryjo Reinoso, [facility] Relocation Associate 03/17/19 Madyson Clay, PharmD 03/17/19 Dana Lala, LAWN CARE SPECIALIST-COUNTER WAITRESS/WAITER [address] [place] [address] 2nd [place] [address] Oncology 03/17/19 Tiffanie Nguyen, LAWN CARE SPECIALIST-FINANCIAL REPORT SERVICE SALES AGENT [address] [place] [address] [place] [address] Family Medicine 03/17/19 Stephanie Mahoney, RN Registered Nurse 03/17/19 10/29/21 Alycia Galvan, ROSEMARY 03/17/19 10/29/21 Cesar Tavares MD [address] [place] [phone] Referring Physician Medical Oncology 03/23/19 Karie Jones, RN Registered Nurse 06/08/19 10/29/21 Joy Bob 09/22/19 Addison Shea, PharmD Pharmacist 09/22/19 10/29/21 Tony Dumont MD [address] [place] [address] Hematology and Oncology 10/30/21 Shalini Segal MD [address] [place] [place] [address] OF HEMATOLOGY & MEDICAL [place] [address] Configuration Specialist/Oncologis t Hematology and Oncology 10/30/21 Stefanie Burns, RN Registered Nurse 10/30/21 Fatemeh Bolaños RN Registered Nurse 10/30/21 Chandana Lu MD [address] [place] [address] Orthopedic Surgery 03/30/24 documented as of this encounter
--- OUTSIDE RECORDS SUMMARY | 2024-10-19 09:07 | XMS_ITS | Encounter Summary ---
Author Organization [facility] Address [address] [place] [address] Care Team Providers Care Machining Associate Name Role Phone Ran Nuñez MD Primary Care Provider Reason for Visit * Reason Onset Date Comments Med Change Request 12/13/2022 Encounter Details Date Type Department Care Team (Late st Contact Info) Description 12/13/2022 Telephone [facility] Oncology and Hematology - [place] [address] [facility] [address] [place] [address] Cesar Tavares MD [address] [facility] [address] [place] [address] Med Change Request Social History [...] Description 10/19/2024 9:15 AM CDT Office Visit [facility] Oncology and Hematology - [place] [address] 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
--- OUTSIDE RECORDS SUMMARY | 2024-10-19 09:07 | XMS_ITS | Encounter Summary ---
Author Organization [facility] Address [address] [facility] [place] [address] Care Team Providers Care Talk Show Host Name Role Phone Hillary Apple MD Unavailable [phone] Bill Ferrera MD Unavailable [phone] Tony Dumont MD Unavailable [phone] Maryjo Reinoso [facility] Unavailable Unavailable Madyson Clay PharmD Unavailable Unavaila Dana Galicia SHEET PILE DRIVER OPERATOR-AWARD CLERK Unavailable [phone] Tiffanie Nguyen SHEET PILE DRIVER OPERATOR-MANAGER WOUND Unavailable [phone] Stephanie Mahoney RN Unavailable Unavailable Alycia Galvan RN Unavailable UnavailRan Mejía MD Primary Care Provider Cesar Tavares MD Unavailable [phone] Karie Jones RN Unavailable Unavailable Joy Bob Unavailable Fanta Addison Weinstein PharmD Unavailable Unavailab Alida Chang SHEET PILE DRIVER OPERATOR-MANAGER WOUND Primary Care Provider Ran Nuñez MD Primary Care Provider Tony Dumont MD Unavailable [phone] Shalini Segal MD Unavailable [phone] Stefanie Burns RN Unavailable Unavaila Fatemeh Kelly RN Unavailable Unavailable Glenn Hernandez MD Unavailable Chandana Lu MD Unavailable Reason for Visit * Reason Onset Date Comments MEDICATION REFILL 10/01/2020 Encounter Details Date Type Department Care Team (Late st Contact Info) Description 10/01/2020 Refill [facility] [address] [place] [address] Hillary Apple MD [address] [facility] [place] [address] MEDICATION REFILL Social History Tobacco Use Types [...] COVID-19? No / Unsure 09/28/2020 1:10 PM FBI FIELD AGENT documented as of this encounter Functional [...] Time COVID-19 Confirmed 09/28/2020 09/28/2020 4:33 AM FBI FIELD AGENT COVID-19 Under Investigation 11/16/2020 11/16/2020 11/16/2020 6:52 PM CDT COVID-19 Confirmed 11/16/2020 11/16/2020 4:35 AM CDT COVID-19 Under Investigation 12/20/2020 12/20/2020 12/20/2020 6:23 PM CDT COVID-19 Under Investigation 04/21/2021 04/21/2021 2021 6:42 AM CDT documented as of this encounter Care Teams Talk Show Host Relationship Specialty Start Date End Date Ran Nuñez MD [address] [place] [address] PCP - General Family Medicine 03/22/19 12/22/20 Alida Marshall APRN-MANAGER WOUND [address] [facility] [place] [address] PCP - General Family Medicine 12/23/20 08/29/21 Ran Nuñez MD [address] [place] [address] PCP - General Family Medicine 08/30/21 [place] [address] [place] [address] PCP - [facility] 03/04/23 08/21/23 Hillary Apple MD [address] [place] [address] Hematology and Oncology 03/17/19 Bill Ferrera MD [address] [place] [address] Hematology and Oncology 03/17/19 08/27/21 Tony Dumont MD [address] [place] [address] Hematology and Oncology 03/17/19 Maryjo Reinoso, REROLLING MACHINE OPERATOR Sample Maker Hand 03/17/19 Madyson Clay, PharmD 03/17/19 Dana Lala, SHEET PILE DRIVER OPERATOR-AWARD CLERK [address] [facility] 2nd [place] [address] Oncology 03/17/19 Tiffanie Nguyen, SHEET PILE DRIVER OPERATOR-MANAGER WOUND [address] [facility] [address]nd [place] [address] Family Medicine 03/17/19 Stephanie Mahoney, RN Registered Nurse 03/17/19 10/29/21 Alycia Galvan, ROSEMARY 03/17/19 10/29/21 Cesar Tvaares MD [address] [place] [address] [place] [address] Referring Physician Medical Oncology 03/23/19 Karie Jones, RN Registered Nurse 06/08/19 10/29/21 Joy Bob 09/22/19 Addison Shea, PharmD Pharmacist 09/22/19 10/29/21 Tony uDmont MD [address] [place] [address] Hematology and Oncology 10/30/21 Shalini Segal MD [address] [place] [address] OF HEMATOLOGY & [place] [address] Client Support Administrator/Oncologis t Hematology and Oncology 10/30/21 Stefanie Burns, RN Registered Nurse 10/30/21 Fatemeh Bolaños RN Registered Nurse 10/30/21 Chandana Lu MD [address] [place] [address] Orthopedic Surgery 03/30/24 documented as of this encounter
--- OUTSIDE RECORDS SUMMARY | 2024-10-19 09:07 | XMS_ITS | Clinical Summary ---
Author Organization [facility] Address [address] [place] [address] Care Team Providers Care Windows Vmware Engineer Name Role Phone Hillary Apple MD Unavailable [phone] Tony Dumont MD Unavailable [phone] Maryjo ReinosoW Unavailable Unavailable Madyson Clay PharmD Unavailable Unavaila Dana Galicia EDITOR BOOK-CRUCIBLE FURNACE TENDER Unavailable [phone] Tiffanie Nguyen EDITOR BOOK-SHEET METAL SUPERVISOR Unavailable [phone] Cesar Tavares MD Unavailable [phone] Joy Bob Unavailable Fanta Rna Augustine MD Primary Care Provider Tony Dumont MD Unavailable [phone] Shalini Segal MD Unavailable [phone] Stefanie Burns RN Unavailable Unavaila Fatemeh Kelly RN Unavailable Unavailable Chandana Lu MD Unavailable [phone] Source Comments [facility],non-owned Affiliates and Associated Physician Practices is amultiple site organization consisting of ambulatory clinics and hospital sitesin [place], [place], [place] and [place]. This disclosure is being madepursuant to the Care Everywhere program and may not contain all information available regarding this patient. Last updated 18.[facility] Allergies Active Allergy Reactions Criticality Noted [...] Next Due COVID PFIZER BIVALENT 12Y+ 30mcg/0.3ML Covid Pfizer primary Monoval ent 12+ yr 0.3ml 12/20/2021 Covid Pfizer primary monoval ent 12+ yr 0.3mL Purple cap 08/30/2021,12/07/2020,11/16/2020 DTAP 5 PERTUSSIS ANTIGENS 02/15/2021,09/28/2020, 07/14/2020 HEP A/HEP B 08/30/2021,09/28/2020,07/14/2020 HIB-PRP-T 4 DOSE 02/15/2021,,06/16/2020,08/11 INFLUENZA VACCINE, HIGH-DOSE , QUADR. (FLUZONE HIGH-DOSE QUADRIVALENT; 65Y+), 0.7 ML (HD-IIV4) 05/22/2022,05/24/2019 MENINGOCOCCAL MCV4 08/31/2020,06/16/2020, 020 MMR 05/22/2022 PNEUMOCOCCAL PPSV23 08/30/2021,08/11/2019 POLIO IPV [...] 37.2 C (99 F) 06/30/2022 6:32 PM INVENTORY ASSOCIATE AND DRIVER Respiratory Rate 17 02/26/2024 8:05 AM CDT [...] - Annual 1970 MENINGOCOCCAL (Group B) VACCINE SHARED DECISION-MAKING (1 of 5 - Increased Risk) 1980 COVID-19 VACCINE ( - ) 04/04/2024 05/22/2022, 12/20/2021, 08/30/2021, Additional history exists INFLUENZA VACCINE (#1) 2024 05/22/2022, 2018 DEPRESSION SCREENING 08/04/2024 06/30/2022 MEDICARE AWV CALENDAR YEAR 2024 SCREENING FOR DIABETES 08/30/2024 , 02/15/2021, 12/20/2020, Additional history exists MENINGOCOCCAL GROUPS A/C/Y/W VACCINE (3 - Risk 2-dose series) 08/31/2025 [...] this topic Medical Devices Implanted Type Area Patient Care Device Identifier Shelf Expiration Date Model / Serial / Lot Tray Cath 12fr 23cm Hkmn Trifusion 3 Lum Implanted:Qty: 1 on 09/17/2019 at [facility] [employer] 05/03/2021 [id number] / / [id number] Procedures Procedure Name Priority Date/Time Associated Diagnosis Comments COMPREHENSIVE METABOLIC PANEL STAT 08/30/2021 11:36 AM INVENTORY ASSOCIATE AND DRIVER Diffuse large B-cell lymphoma, unspecified body region (HCC) LIPID PROFILE Routine 08/30/2021 11:36 AM INVENTORY ASSOCIATE AND DRIVER Diffuse large B-cell lymphoma, unspecified body region (HCC) S/P autologous bone marrow transplantation (HCC) HEPATITIS C ANTIBODY Routine 09/09/2019 12:42 PM INVENTORY ASSOCIATE AND DRIVER Pre-transplant evaluation for stem cell transplant HIV-1 HIV-2 ANTIGEN/ANTIBODY Routine 03/22/2019 3:00 PM CDT Diffuse large B-cell lymphoma, unspecified body region (HCC) from Last 3 Months or Most Recently Relevant to Health Maintenance Results * (ABNORMAL) COMPREHENSIVE METABOLIC PANEL (08/30/2021 11:36 AM INVENTORY ASSOCIATE AND DRIVER) BUN 12 7 - 26 mg/dL 08/30/2021 12:10 PM [facility] Creatinine 1.02 0.71 - 1.16 mg/dL 08/30/2021 12:10 PM [facility] Sodium 140 136 - 145 mmol/L 08/30/2021 12:10 PM [facility] Potassium 4.8(H) 3.5 - 4.5 mmol/L 08/30/2021 12:10 PM [facility] Chloride 107 98 - 107 mmol/L 08/30/2021 12:10 PM [facility] CO2 23 22 - 29 mmol/L 08/30/2021 12:10 PM [facility] Glucose 99 70 - 115 mg/dL 08/30/2021 12:10 PM [facility] Calcium 9.4 8.4 - 10.2 mg/dL 08/30/2021 12:10 PM [facility] Protein Total 6.6 6.0 - 8.3 g/dL 08/30/2021 12:10 PM [facility] Albumin 3.9 3.4 - 5.0 g/dL 08/30/2021 12:10 PM [facility] Bilirubin Total 0.4 0.2 - 1.2 mg/dL 08/30/2021 12:10 PM [facility] Alkaline Phosphatase 113 40 - 150 U/L 08/30/2021 12:10 PM [facility] ALT 38 5 - 55 U/L 08/30/2021 12:10 PM [facility] AST 26 5 - 34 U/L 08/30/2021 12:10 PM [facility] Anion Gap 15 8 - 18 08/30/2021 12:10 PM [facility] BUN/Creatinine Ratio 12 7 - 23 08/30/2021 12:10 PM [facility] Osmolality Calculated 290 270 - 300 mOsm/kg 08/30/2021 12:10 PM [facility] Albumin/Globulin Ratio 1.4 1.1 - 2.3 08/30/2021 12:10 PM [facility] eGFR by CKD-EPI 85(L) >=90 mL/min/1.7 3 m2 08/30/2021 12:10 PM [facility] Blood BLOOD SPECIMEN / Unknown Venipuncture / Unknown 08/30/2021 11:36 AM INVENTORY ASSOCIATE AND DRIVER 08/30/2021 11:46 AM INVENTORY ASSOCIATE AND DRIVER Tiffanie Nguyen EDITOR BOOK-SHEET METAL SUPERVISOR LAB - CHEMISTRY ORDERABLES Performing Organization Address City/[facility] Co de Phone Number [facility] [address] [place] [address], [facility] [phone] * (ABNORMAL) LIPID PROFILE (08/30/2021 11:36 AM INVENTORY ASSOCIATE AND DRIVER) Cholesterol Total 207(H) <200 mg/dL 08/30/2021 12:10 PM [facility] HDL 38(L) >40 mg/dL 08/30/2021 12:10 PM [facility] Comment: ATP III Classification of HDL Cholesterol: <40 mg/dL: Considered a major risk factor. >60 mg/dL: Considered a negative risk factor. LDL Calculated 152(H) <100 mg/dL 08/30/2021 12:10 PM [facility] Comment: ATP III Classification of LDL Cholesterol: <100 mg/dL: Optimal 100 - 129 mg/dL: Near Optimal/Above Optimal 130 - 159 mg/dL: Borderline High 160 - 189 mg/dL: High >190 mg/dL: Very High Triglycerides 87 <150 mg/dL 08/30/2021 12:10 PM [facility] Comment: ATP III Classification of Triglycerides: <150 mg/dL: Normal 150 - 199 mg/dL: Borderline High 200 - 400 mg/dL: High >500 mg/dL: Very High Blood BLOOD SPECIMEN / Unknown Venipuncture / Unknown 08/30/2021 11:36 AM INVENTORY ASSOCIATE AND DRIVER 08/30/2021 11:46 AM INVENTORY ASSOCIATE AND DRIVER Tiffanie Nguyen [facility] - CHEMISTRY ORDERABLES Performing Organization Address City/[facility]/ZIP Co de Phone Number [facility] [address] [place] [address], [facility] [phone] * HEPATITIS C ANTIBODY (09/09/2019 12:42 PM INVENTORY ASSOCIATE AND DRIVER) Hepatitis C Antibody Non-react robyn Non-reac tive 09/09/2019 1:46 PM INVENTORY ASSOCIATE AND DRIVER [facility] Comment: Hepatitis C Antibody [...] Unknown Venipuncture / Unknown 09/09/2019 12:42 PM INVENTORY ASSOCIATE AND DRIVER 09/09/2019 12:51 PM INVENTORY ASSOCIATE AND DRIVER Tiffanie Alvess [facility] - CHEMISTRY ORDERABLES Performing Organization Address City/[facility] Co de Phone Number [facility] [address] [place] [address], [facility] [phone] * HIV-1 HIV-2 ANTIGEN/ANTIBODY (03/22/2019 3:00 PM CDT) HIV Antigen/Antibod y 1 & 2 Non-reacti ve Non-react robyn 03/22/2019 3:59 PM CDT [facility] Comment: Neither HIV-1 p24 Antigen nor HIV-1/HIV-2 Antibodies are detected. Blood BLOOD SPECIMEN / Unknown Venipuncture / Unknown 03/22/2019 3:00 PM CDT 03/22/2019 3:11 PM CDT Tiffanie Alvess [facility] - HEMATOLOG Y ORDERABLES [facility] [address] [place], [place] [id number] [place] [address] from Last 3 Months or Most Recently Relevant to Health Maintenance Advance Directives Documents on File Type Date Recorded Patient Crane Rigger Expl anation Adv Directive/Living Will/POA 10/27/2019 2:34 [...] 6:25 PM 08/19/2019 4:51 PM Care Teams Windows Vmware Engineer Relationship Specialty Start Date End Date Ran Nuñez MD [address] [place] [address] PCP - General Family Medicine 08/30/21 Hillary Apple MD [address] [place] [address] Hematology and Oncology 03/17/19 Tony Dumont MD [facility] [place] [address] Hematology and Oncology 03/17/19 Maryjo Reinoso, FITTING ROOM INSPECTOR Dredge Runner 03/17/19 Madyson Clay, PharmD 03/17/19 Dana Lala, EDITOR BOOK-CRUCIBLE FURNACE TENDER [address] [place] [address] [address] [place] [address] Oncology 03/17/19 Tiffanie Nguyen, EDITOR BOOK-SHEET METAL SUPERVISOR [address] [place] [address] [address] [address] Family Medicine 03/17/19 Cesar Tavares MD [address] [place] [address] 2nd [place] [address] Referring Physician Medical Oncology 03/23/19 Joy Bob 09/22/19 Tony Dumont MD [address] [place] [address] Hematology and Oncology 10/30/21 Shalini Segal MD [address] [facility] [place] [address] Information Engineer/Oncologist Hematology and Oncology 10/30/21 Stefanie Burns, RN Registered Nurse 10/30/21 Fatemeh Bolaños, RN Registered Nurse 10/30/21 Chandana Lu MD [address] [place] [address] [phone] (work) Orthopedic Surgery 03/30/24
[2024-10-19 09:28] LABS: Blood Urea Nitrogen 15 mg/dL (8-26); Carbon Dioxide 25 mmol/L (22-30); Chloride 107 mmol/L (98-109); Estimated Glomerular Filt Rate > 60; Glucose 94 mg/dL (70-105); Ionized Calcium (POC) 1.22 mmol/L (1.11-1.31); Potassium 4.5 mmol/L (3.5-4.9); Sodium 143 mmol/L (138-146)
[2024-10-19 12:32] LABS: Alanine Aminotransferase 24 U/L (6-50); Alkaline Phosphatase 96 U/L (38-126); Anion Gap 6 mmol/L (4-12); Aspartate Amino Transferase 29 U/L (17-59); Bilirubin,Total 0.2 mg/dL (0.2-1.3); Blood Urea Nitrogen 15 mg/dL (9-20); Carbon Dioxide 26 mmol/L (22-30); Chloride 109 mmol/L (98-107); Estimated Glomerular Filt Rate > 60; Glucose 94 mg/dL (65-110); Potassium 4.6 mmol/L (3.4-5.0); Sodium 141 mmol/L (137-145)
[2024-10-19 12:35] LABS: Lactate Dehydrogenase 259 U/L (120-246)
[2024-10-19 12:37] LABS: Iron 36 ug/dL (49-181)
[2024-10-19 12:52] LABS: Percent Iron Saturation 10 % (20-50)
== END 2024-10-19 08:44 | disposition home or self-care (01) ==
PROVIDERS: PCP Family Medicine; Visit Provider Internal Medicine Hematology & Oncology
DX: C83.32 Diffuse large B-cell lymphoma, intrathoracic lymph nodes (principal); D64.9 Anemia, unspecified
CPT/HCPCS: 36415; 80047; 80053; 82607; 82728; 83540; 83550; 83615; 85025

== ENCOUNTER 2024-12-13 09:39 | Outpatient (CLI) | payer MEDICARE, SELFPAY ==
--- OUTSIDE RECORDS SUMMARY | 2024-12-13 09:44 | XMS_ITS | Encounter Summary ---
Author Organization [facility] Address [address] [place] [address] Care Team Providers Care Academic Advisement Director Name Role Phone Hillary Apple MD Unavailable [phone] Tony Dumont MD Unavailable [phone] Maryjo ReinosoW Unavailable Unavailab Madyson Nicolas PharmD Unavailable Unavaila Dana Galicia NEUROSURGERY PHYSICIAN-ROAD TEST EXAMINER Unavailable + [phone] Tiffanie Nguyen NEUROSURGERY PHYSICIAN-SUPERVISOR SAWMILL Unavailable [phone] Cesar Tavares MD Unavailable [phone] Joy Bob Unavailable Fanta Ran Augustine MD Primary Care Provider Tony Dumont MD Unavailable [phone] Shalini Segal MD Unavailable [phone] Stefanie Burns RN Unavailable Unavaila Fatemeh Kelly RN Unavailable Unavailable Glenn Hernandez MD Unavailable [phone] Chandana Lu MD Unavailable [phone] Reason for Visit * Reason Onset Date Comments MEDICATION REFILL 08/13/2023 Encounter Details Date Type Department Care Team (Late st Contact Info) Description 08/13/[address] [facility] B[facility] CLINIC [address] [place] [address] Hillary Apple MD [address] [facility] [place] [address] MEDICATION REFILL Social History Tobacco Use Types [...] Assigned at Male 03/27/2022 11:34 AM CDT Legal 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 PARTNER MANAGEMENT CONSULTANT Gender Identity Male 03/27/2022 11:34 AM CDT Sexual Orientation Straight 03/27/2022 11 :34 AM CDT documented as of this encounter Functional Status * Is person deaf or have serious hearing difficulty? Answer Date of Assessment Author No 02/25/2020 10:12 PM CDT Rylee Coreas RN * Is person blind or have serious difficulty seeing? Answer Date of Assessment Author No 02/25/2020 10:12 PM CDT Rylee Coreas RN * Does person have serious difficulty walking/climbing stairs? Answer Date of Assessment Author No 02/25/2020 10:12 PM DOUGLAST Rylee Coreas RN * Does person have difficulty dressing/bathing? Answer Date of Assessment Author No 02/25/2020 10:12 PM DOUGLAST Rylee Coreas RN * Does person have difficulty doing errands alone? Answer Date of Assessment Author No 02/25/2020 10:12 PM DOUGLAST Rylee Coreas RN documented as of this encounter Mental Status * Does person have difficulty concentrating/remembering/making decisions? Answer Entry Date Author No 02/25/2020 10:12 PM Rylee Last RN documented in this encounter Plan of Treatment Not on file documented as of this encounter Visit Diagnoses Not on filedocumented in this encounter Care Teams Academic Advisement Director Relationship Specialty Start Date End Date Ran Nuñez MD [address] [place] [address] PCP - General Family Medicine 08/30/21 [place] [address] [facility] [place] [address] PCP - [facility] 03/04/23 08/21/23 Hillary Apple MD [address] [place] [address] Hematology and Oncology 03/17/19 Tony Dumont MD [facility] [place] [address] Hematology and Oncology 03/17/19 Maryjo Reinoso, [facility] Air Defense Artillery Senior Sergeant 03/17/19 Madyson Clay, PharmD 03/17/19 Dana Lala, NEUROSURGERY PHYSICIAN-ROAD TEST EXAMINER [address] [facility] [address] [place] [address] Oncology 03/17/19 Tiffanie Nguyen, NEUROSURGERY PHYSICIAN-SUPERVISOR SAWMILL [address] [facility] [place] [address] Family Medicine 03/17/19 Cesar Tavares MD [address] [place], [place] [address]TA [facility] 2nd [place] [address] Referring Physician Medical Oncology 03/23/19 Joy Bob 09/22/19 Tony Dumont MD [address] [place] [phone] Hematology and Oncology 10/30/21 Shalini Segal MD [address] [place] [address] OF HEMATOLOGY & [place] [address] Automotive Mechanic/Oncologist Hematology and Oncology 10/30/21 Stefanie Burns, RN Registered Nurse 10/30/21 Fatemeh Bolaños RN Registered Nurse 10/30/21 Chandana Lu MD [address] [place] [address] Orthopedic Surgery 03/30/24 documented as of this encounter
--- OUTSIDE RECORDS SUMMARY | 2024-12-13 09:44 | XMS_ITS | Encounter Summary ---
Author Organization [facility] Address [address] [facility] [place] [address] Care Team Providers Care Drill Bit Sharpener Name Role Phone Hillary Apple MD Unavailable [phone] Tony Dumont MD Unavailable [phone] Maryjo ReinosoW Unavailable Unavailab Madyson Nicolas PharmD Unavailable Unavaila Dana Galicia BURNER MACHINE OPERATOR-NURSE AUDITOR Unavailable + [phone] Tiffanie Nguyen BURNER MACHINE OPERATOR-ELECTRIC ARC FURNACE OPERATOR Unavailable [phone] Cesar Tavares MD Unavailable [phone] Joy Bob Unavailable Fanta Ran Augustine MD Primary Care Provider Tony Dumont MD Unavailable [phone] Shalini Segal MD Unavailable [phone] Stefanie Burns RN Unavailable Unavaila Fatemeh Kelly RN Unavailable Unavailable Glenn Hernandez MD Unavailable [phone] Chandana Lu MD Unavailable [phone] Reason for Visit * Reason Onset Date Comments MEDICATION REFILL 12/24/2021 Encounter Details Date Type Department Care Team (Late st Contact Info) Description 12/24/2021 Refill [facility] B[facility] CLINIC [address] [place] [address] Tiffanie Nguyen, BURNER MACHINE OPERATOR-ELECTRIC ARC FURNACE OPERATOR [address] [place] [address] MEDICATION REFILL Social History Tobacco Use Types [...] AM CDT Legal 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 CRACKER AND COOKIE MACHINE OPERATOR Gender Identity Male 03/27/2022 11:34 AM CDT [...] Entry Date Author No 02/25/2020 10:12 PM DOUGLAST Rylee Coreas RN documented in this encounter Plan of Treatment Not on file documented as of this encounter Visit Diagnoses Diagnosis 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 Restless legs syndrome (RLS) documented in this encounter Care Teams Drill Bit Sharpener Relationship Specialty Start Date End Date Ran Nuñez MD [address] [place] [address] PCP - General Family Medicine 08/30/21 [place] [address] [place] [address] [facility] 03/04/23 08/21/23 Hillary Apple MD [facility] [place] [address] Hematology and Oncology 03/17/19 Tony Dumont MD [address] [place] [address] Hematology and Oncology 03/17/19 Maryjo Reinoso, [facility] Program Mgr 03/17/19 Madyson Clay, PharmD 03/17/19 Dana Lala APRN-NURSE AUDITOR [address] [facility] [address] [place] [address] Oncology 03/17/19 Tiffanie Nguyen APRN-ELECTRIC ARC FURNACE OPERATOR [address] [facility] [address] [address] Family Medicine 03/17/19 Cesar Tavares MD [facility] [address] [address] Referring Physician Medical Oncology 03/23/19 Joy Bob 09/22/19 Tony Dumont MD [address] [place] [address] Hematology and Oncology 10/30/21 Shalini Segal MD [address] [place] [address] OF HEMATOLOGY & [place] [address] Production Grip/Oncologist Hematology and Oncology 10/30/21 Stefanie Burns, RN Registered Nurse 10/30/21 Fatemeh Bloaños, RN Registered Nurse 10/30/21 Chandana Lu MD [address] [place] [address] Orthopedic Surgery 03/30/24 documented as of this encounter
--- OUTSIDE RECORDS SUMMARY | 2024-12-13 09:44 | XMS_ITS | Encounter Summary ---
Author Organization [facility] Address [address] [facility] [place] [address] Care Team Providers Care Turnaround Planner Name Role Phone Hillary Apple MD Unavailable [phone] Tony Dumont MD Unavailable [phone] Maryjo ReinosoW Unavailable Unavailab Madyson Nicolas PharmD Unavailable Unavaila Dana Galicia WIRE COATER-MACHINE STRIPPER Unavailable + [phone] Tiffanie Nguyen WIRE COATER-TV NEWS DIRECTOR Unavailable [phone] Cesar Tavares MD Unavailable [phone] Joy Bob Unavailable Fanta Ran Augustine MD Primary Care Provider Tony Dumont MD Unavailable [phone] Shalini Segal MD Unavailable [phone] Stefanie Burns RN Unavailable Unavaila Fatemeh Kelly RN Unavailable Unavailable Glenn Hernandez MD Unavailable [phone] Chandana Lu MD Unavailable [phone] Reason for Visit * Reason Onset Date Comments MEDICATION REFILL 04/24/2023 Encounter Details Date Type Department Care Team (Late st Contact Info) Description 04/24/2023 Refill [facility] [address] [place] [address] Hillary Apple MD [address] [facility] OF HEMATOLOGY & [place] [address] MEDICATION REFILL Social History Tobacco Use Types [...] AM CDT Legal 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 BENDER MACHINE OPERATOR Gender Identity Male 03/27/2022 11:34 [...] on filedocumented in this encounter Care Teams Turnaround Planner Relationship Specialty Start Date End Date Ran Nuñez MD [address] [place] [address] PCP - General Family Medicine 08/30/21 [place] [address] [facility] [place] [address] PCP - [facility] 03/04/23 08/21/23 Hillary Apple MD [address] [place] [address] Hematology and Oncology 03/17/19 Tony Dumont MD [facility] [place] [address] Hematology and Oncology 03/17/19 Maryjo Reinoso, [facility] Supervisor [employer] 03/17/19 Madyson Clay, PharmD 03/17/19 Dana Lala, WIRE COATER-MACHINE STRIPPER [address] [facility] 2[place] [address] Oncology 03/17/19 Tiffanie Nguyen, WIRE COATER-TV NEWS DIRECTOR [address] [facility] 2nd [place] [address] Family Medicine 03/17/19 Cesar Tavares MD [address] [place], [place] [address]TA [facility] 2nd [place] [address] Referring Physician Medical Oncology 03/23/19 Joy Bob 09/22/19 Tony Dumont MD [address] [place] [phone] Hematology and Oncology 10/30/21 Shalini Segal MD [address] [place] [address] OF HEMATOLOGY [place] [address] Sanitary Engineer/Oncologist Hematology and Oncology 10/30/21 Stefanie Burns, RN Registered Nurse 10/30/21 Fatemeh Bolaños RN Registered Nurse 10/30/21 Chandana Lu MD [address] [place] [address] Orthopedic Surgery 03/30/24 documented as of this encounter
--- OUTSIDE RECORDS SUMMARY | 2024-12-13 09:44 | XMS_ITS | Encounter Summary ---
Author Organization [facility] Address [address] [facility] [place] [address] Care Team Providers Care Wind Science And Planning Name Role Phone Hillary Apple MD Unavailable [phone] Bill Ferrera MD Unavailable [phone] Tony Dumont MD Unavailable [phone] Shalini Segal MD Unavailable [phone] Karie Jones RN Unavailable Unavailable Maryjo Reinoso LCSW Unavailable Unavailab Madyson Nicolas PharmD Unavailable Unavaila Dana Galicia JUNIOR GRAPHIC DESIGNER-TESTING LEAD Unavailable + [phone] Mckinley SilverC Unavailable Unavail able Patrick, Lara JUNIOR GRAPHIC DESIGNER-MICROBIAL SPECIALIST Unavailable [phone] Stephanie Mahoney RN Unavailable Unavailable Alycia Galvan RN Unavailable UnavailRan Mejía MD Primary Care Provider Cesar Tavares MD Unavailable [phone] Karie Jones RN Unavailable Unavailable Joy Bob Unavailable Fanta Addison Weinstein PharmD Unavailable Unavailab Alida Chang JUNIOR GRAPHIC DESIGNER-MICROBIAL SPECIALIST Primary Care Provider Ran Nuñez MD Primary Care Provider Tony Dumont MD Unavailable [phone] Shalini Segal MD Unavailable [phone] Stefanie Burns RN Unavailable Unavaila Fatemeh Kelly RN Unavailable Unavailable Glenn Hernandez MD Unavailable Chandana Lu MD Unavailable Encounter Details Date Type Department Care Team (Late st Contact Info) Description 03/24/2019 Lab Requisition [facility] Care Pathology Lab [address] [place] [address] Roseline Higgins MD [address] [place] [address] Social History Tobacco Use Types Packs/Day Years Used Date Smoking Tobacco: Never Assessed Sex and Gender Information Value Date Recorded Sex Assigned at Male 03/27/2022 11:34 AM CDT Legal 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 TALENT ACQUISITION LEAD Gender Identity Male 03/27/2022 11:34 AM CDT [...] Report Bone Marrow Patholog y Report Case: [id number] Authorizing Provider: Roseline Higgins MD Collected: 03/23/2019 10:40 AM Ordering Location: [facility] Pathology Lab Received: 03/24/2019 03:08 PM Pathologist: [...] - See microscopic description. 03/25/2019 1:01 PM [facility] Comment In summary, the [...] testing is required. KR 03/25/2019 1:01 PM [facility] Peripheral Smear Description CBC [...] decreased. Platelet morphology: normal. 03/25/2019 1:01 PM [facility] Bone Marrow Aspirate Differential [...] (by special stain): decreased. 03/25/2019 1:01 PM [facility] Bone Marrow Core Biopsy [...] the bone marrow core biopsy in the [facility] Department of Pathology. All controls are appropriately [...] and fungal organisms, respectively. 03/25/2019 1:01 PM [facility] Flow Cytometry Summary Concurrent flow cytometry ([id number]) shows involvement by a CD5-negative, [id number] mature B-cell lymphoma. 03/25/2019 1:01 PM [facility] Clinical History 48 year old man with a history of B-cell lymphoma, lymphadenopathy, and splenomegaly, status-post treatment. 03/25/2019 1:01 PM [facility] Materials Received Received are 20 slides and 3 blocks labeled as [id number] along with the outside pathology report. [place] [address]. All materials are returned to the referring institution, along with a copy of our final report. 03/25/2019 1:01 PM [facility] Disclaimer The performance characteristics of all immunohistochemical and indirect immunofluorescence stains (if any) cited in this report were determined by the Histopathology Laboratory of [facility]. Some of these tests were developed by [...] interpretation of this case is performed by [facility] Pathology at [facility], [address] [place] [address]. 03/25/2019 1:01 PM CDT [facility] Embedded Images 03/25/2019 1:01 PM CDT [facility] Pathology/Cytology SPECIMEN FROM BONE MARROW [...] 10:40 AM CDT 03/24/2019 3:08 PM CDT us Roseline Higgins MD LAB - PATHOLOGY/CYTOLOGY ORDERAB LES Final Result [facility] PATHOLOGY LAB [address] [place] [address], [facility] [phone] documented in this encounter Visit Diagnoses Not on filedocumented in this encounter Additional Health Concerns Infection Onset Date Last Indicated Resolved Time COVID-19 Under Investigation 02/25/2020 02/25/2020 02/26/2020 4:19 PM CDT COVID-19 Under Investigation 02/27/2020 02/27/2020 02/27/2020 4:07 PM CDT COVID-19 Under Investigation 03/03/2020 03/04/2020 03/05/2020 6:23 AM CDT COVID-19 Under Investigation 03/06/2020 03/06/2020 03/07/2020 11:57 AM CDT COVID-19 Confirmed 03/06/2020 07/14/2020202 0 4:33 AM TALENT ACQUISITION LEAD COVID-19 Under Investigation 03/07/2020 03/07/2020 03/09/2020 8:54 AM CDT COVID-19 Under Investigation 03/29/2020 03/29/2020 03/30/2020 9:42 AM CDT COVID-19 Confirmed 08/31/2020 08/31/2020 1 4:34 AM TALENT ACQUISITION LEAD COVID-19 Confirmed 09/28/2020 09/28/2020 1 4:33 AM TALENT ACQUISITION LEAD COVID-19 Under Investigation 11/16/2020 11/16/2020 11/16/2020 6:52 PM CDT COVID-19 Confirmed 11/16/2020 11/16/2020 4:35 AM CDT COVID-19 Under Investigation 12/20/2020 12/20/2020 12/20/2020 6:23 PM CDT COVID-19 Under Investigation 04/21/2021 04/21/2021 2021 6:42 AM CDT documented as of this encounter Care Teams Wind Science And Planning Relationship Specialty Start Date End Date Ran Nuñez MD [address] [place] [address] PCP - General Family Medicine 03/22/19 12/22/20 Alida Marshall APRN-MICROBIAL SPECIALIST [address] [facility] OF HEMATOLOGY [place] [address] PCP - General Family Medicine 12/23/20 08/29/21 Ran Nuñez MD [address] [place] [address] PCP - General Family Medicine 08/30/21 [place] [address] [facility] [place] [address] PCP - Attributed-Stefany [place] 03/04/23 08/21/23 Hillary Apple MD [address] [place] [address] Hematology and Oncology 03/17/19 Bill Ferrera MD [address] [place] [place] [address] Hematology and Oncology 03/17/19 08/27/21 Tony Dumont MD [address] [place] [place] [address] Hematology and Oncology 03/17/19 Shalini Segal MD [address] [place] [place] [address] Hematology and Oncology 03/17/19 09/29/19 Karie Jones, RN Registered Nurse 03/17/19 09/21/19 Maryjo Reinoso, REDUCER Forensic Chemist 03/17/19 Madyson Clay, PharmD 03/17/19 Dana Lala JUNIOR GRAPHIC DESIGNER-TESTING LEAD [address] [place] [address] [address] [address] Oncology 03/17/19 Mckinley Silver PA-C [address] [place] [address] [address] [address] Physician Financial Accounting Manager 03/17/19 09/08/19 Tiffanie Nguyen, JUNIOR GRAPHIC DESIGNER-MICROBIAL SPECIALIST [address] [place] [address] 2[place] [address] Family Medicine 03/17/19 Stephanie Mahoney, RN Registered Nurse 03/17/19 10/29/21 Alycia Galvan, ROSEMARY 03/17/19 10/29/21 Cesar Tavares MD [address] [place] [address] Referring Physician Medical Oncology 03/23/19 Karie Jones, RN Registered Nurse 06/08/19 10/29/21 Joy Bob 09/22/19 Addison Shea, PharmD Pharmacist 09/22/19 10/29/21 Tony Dumont MD [address] [place] [address] Hematology and Oncology 10/30/21 Shalini Segal MD [address] [facility] OF HEMATOLOGY [place] [address] Terrazzo Supervisor/Oncologis t Hematology and Oncology 10/30/21 Stefanie Burns, RN Registered Nurse 10/30/21 Fatemeh Bolaños RN Registered Nurse 10/30/21 Chandana Lu MD [address] [place] [address] Orthopedic Surgery 03/30/24 documented as of this encounter
--- OUTSIDE RECORDS SUMMARY | 2024-12-13 09:44 | XMS_ITS | Encounter Summary ---
Author Organization [facility] Address [address] [place] [address] Care Team Providers Care Natural Fabricator Name Role Phone Hillary Apple MD Unavailable [phone] Tony Dumont MD Unavailable [phone] Maryjo ReinosoW Unavailable Unavailab Madyson Nicolas PharmD Unavailable Unavaila Dana Galicia TIME LOCK EXPERT-SUSTAINABILITY PURCHASING AGENT Unavailable + [phone] Tiffanie Nguyen TIME LOCK EXPERT-MOTOR VEHICLE LICENCE EXAMINER Unavailable [phone] Cesar Tavares MD Unavailable [phone] Joy Bob Unavailable Fanta Ran Augustine MD Primary Care Provider Tony Dumont MD Unavailable [phone] Shalini Segal MD Unavailable [phone] Stefanie Burns RN Unavailable Unavaila Fatemeh Kelly RN Unavailable Unavailable Glenn Hernandez MD Unavailable [phone] Chandana Lu MD Unavailable [phone] Reason for Visit * Reason Onset Date Comments MEDICATION REFILL 08/13/2023 Encounter Details Date Type Department Care Team (Late st Contact Info) Description 08/13/2023 Refill [facility] [address] [place] [address] Tiffanie Nguyen, TIME LOCK EXPERT-MOTOR VEHICLE LICENCE EXAMINER [address] [place] [address] MEDICATION REFILL Social History Tobacco Use Types [...] AM CDT Legal 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 [...] transplant documented in this encounter Care Teams Natural Fabricator Relationship Specialty Start Date End Date Ran Nuñez MD [address] [place] [address] PCP - General Family Medicine 08/30/21 [place] [address] [place] [address] PCP - [facility] 03/04/23 08/21/23 Hillary Apple MD [facility] [place] [address] Hematology and Oncology 03/17/19 Tony Dumont MD [facility] [place] [address] Hematology and Oncology 03/17/19 Maryjo Reinoso, [facility] Seasoning Mixer 03/17/19 Madyson Clay, PharmD 03/17/19 Dana Lala, TIME LOCK EXPERT-SUSTAINABILITY PURCHASING AGENT [address] [facility] 2nd [place] [address] Oncology 03/17/19 Tiffanie Nguyen, TIME LOCK EXPERT-MOTOR VEHICLE LICENCE EXAMINER [address] [facility] 2nd [place] [address] Family Medicine 03/17/19 Cesar Tavares MD [facility] [facility] 2nd [place] [address] Referring Physician Medical Oncology 03/23/19 Joy Bob 09/22/19 Tony Dumont MD [address] [place] [address] Hematology and Oncology 10/30/21 Shalini Segal MD [address] [facility] OF HEMATOLOGY & [place] [address] Elementary Science Teacher/Oncologist Hematology and Oncology 10/30/21 Stefanie Burns, RN Registered Nurse 10/30/21 Fatemeh Bolaños RN Registered Nurse 10/30/21 Chandana Lu MD [address] [place] [address] Orthopedic Surgery 03/30/24 documented as of this encounter
--- OUTSIDE RECORDS SUMMARY | 2024-12-13 09:44 | XMS_ITS | Continuity of Care Document ---
Author Organization [facility] Address [address] [place] [address] [place] [address] Phone Care Team Providers Care Utilization Review Coordinator Name Role Phone Darcy Yao OD Unavailable [...] Fundus Photos 022 Office/outpatient Visit, [facility] Frames Purchases SV Plastic Sphcyl Gifford +/-4d, .12-2d Oc Anti-reflective Coating Advance Directives Directive Yes / No Effective Date File Name No Information Encounters Encounter Description Practice Location Reason(s) For Visit Diagnoses Date Provider Providers Copied on Encounter Office/outpat ient Visit, [facility], [address] [place] [address] [address], [place], [place], [address], tel:[phone] SEC Andrea Patel 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 [address] [place] [address], [address], [place], [place], [id number], . tel:[phone] Referring Provider: Darcy Levy, [address] [place] [address] [address], [place], [address] . tel:[phone] [facility], [address] [place], [place] [address] [address], [place], [place], [address], tel:[phone] SEC Andrea Patel No Information 2 [facility] . [address] [facility], [address], [place], [place], [address], . tel:[phone] Referring Provider: Darcy Levy, [address] [place] [address] [address], [place], [address] . tel:[phone] sulting Provider: Alan Mora, [address] [place], [address] . tel:[phone] Family History Family Member Type Diagnosis Age At Onset No Information Payers Payer name Insurance type Covered democrat ID Radha laughlin(s) [employer] [id number] Social History Type Description Quantity Date Captured Comments Alcohol Use Details Caffeine Use Details Tobacco Use Status Chews tobacco Smoking Status Unknown if ever smoked Non-Smoking Tobacco Use Details Chewing: No Details Available Chewing: No Details Available Sex Male Chief Complaint And Reason For Visit From encounter dated 05/31/2022 13:30'. 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 Description: The 52 [...] Date Complaint History Of Prese nt Illness VOLUNTEER FIRE FIGHTER complete exam The 52 year old patient presents for evaluation of VOLUNTEER FIRE FIGHTER complete exam in the right eye and [...]
--- OUTSIDE RECORDS SUMMARY | 2024-12-13 09:44 | XMS_ITS | Encounter Summary ---
Author Organization [facility] Address [address] [facility] [place] [address] Care Team Providers Care Product Safety Manager Name Role Phone Hillary Apple MD Unavailable [phone] Tony Dumont MD Unavailable [phone] Maryjo ReinosoW Unavailable Unavailab Madyson Nicolas PharmD Unavailable Unavaila Dana Galicia COTTON FARMER-MANAGER MSW Unavailable + [phone] Tiffanie Nguyen COTTON FARMER-SUPPORT SERVICES TECH Unavailable [phone] Cesar Tavares MD Unavailable [phone] Joy Bob Unavailable Fanta Ran Augustine MD Primary Care Provider Tony Dumont MD Unavailable [phone] Shalini Segal MD Unavailable [phone] Stefanie Burns RN Unavailable Unavaila Fatemeh Kelly RN Unavailable Unavailable Glenn Hernandez MD Unavailable [phone] Chandana Lu MD Unavailable [phone] Reason for Visit * Reason Onset Date Comments MEDICATION REFILL 04/24/2023 Encounter Details Date Type Department Care Team (Late st Contact Info) Description 04/24/2023 Refill [facility] [address] [place] [address] Tiffanie Nguyen, COTTON FARMER-SUPPORT SERVICES TECH [address] [place] [address] MEDICATION REFILL Social History Tobacco Use Types [...] AM CDT Legal 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 Gender Identity Male 03/27/2022 11:34 AM CDT [...] (RLS) documented in this encounter Care Teams Product Safety Manager Relationship Specialty Start Date End Date Ran Nuñez MD [address] [place] [address] PCP - General Family Medicine 08/30/21 [place] [address] [place] [address] PCP - [facility] 03/04/23 08/21/23 Hillary Apple MD [facility] [place] [address] Hematology and Oncology 03/17/19 Tony Dumont MD [facility] [place] [address] Hematology and Oncology 03/17/19 Maryjo Reinoso, [facility] [place] [facility] Client Service Representative 03/17/19 Madyson Clay, PharmD 03/17/19 Dana Lala, COTTON FARMER-MANAGER MSW [address] [facility] 2[place] [address] Oncology 03/17/19 Tiffanie Nguyen, COTTON FARMER-SUPPORT SERVICES TECH [facility] 2[place] [address] Family Medicine 03/17/19 Cesar Tavares MD [facility] 2nd [place] [address] Referring Physician Medical Oncology 03/23/19 Joy Bob 09/22/19 Tony Dumont MD [address] [place] [address] Hematology and Oncology 10/30/21 Shalini Segal MD [address] [place] [address] OF HEMATOLOGY & [place] [address] Fire Lieutenant Marine/Oncologist Hematology and Oncology 10/30/21 Stefanie Burns, RN Registered Nurse 10/30/21 Fatemeh Bolaños RN Registered Nurse 10/30/21 Chandana Lu MD [address] [place] [address] Orthopedic Surgery 03/30/24 documented as of this encounter
--- OUTSIDE RECORDS SUMMARY | 2024-12-13 09:45 | XMS_ITS | Encounter Summary ---
Author Organization [facility] [employer] Address [address] [place] [address] Care Team Providers Care Crayon Sawyer Name Role Phone Ran Nuñez MD Primary Care Provider Reason for Visit * Reason Comments Medication Refill Encounter Details Date Type Department Care Team (Late Contact Info) Description 07/17/2019 Refill [facility] Oncology and Hematology [address] [place] [address] Cesar Tavares MD [address] [place] [address] Social History Tobacco Use Types Packs/Day [...] Department Care Team (Late Contact Info) Description 04/21/2025 2:30 PM CDT Office Visit [facility] Oncology and Hematology [address] [place] [address] Cesar Tavares MD [address] [place] [address] documented as of this encounter Visit Diagnoses Not on filedocumented in this encounter Care Teams Crayon Sawyer Relationship Specialty Start Date End Date Rna Nuñez MD [address] [place] [address] PCP - General Family Practice 08/15/17 documented as of this encounter
--- OUTSIDE RECORDS SUMMARY | 2024-12-13 09:45 | XMS_ITS | Clinical Summary ---
Author Organization [facility] Address [address] [facility] [address] [facility] [place] [address] Care Team Providers Care Aircraft Sheet Metal Mechanic Name Role Phone Ran Nuñez MD Primary [...] 2 Active fluticasone propionate (FLONASE) 50 mcg/spray [place], Suspension nasal inhaler 2 SPRAYS IN EACH [...] Tablet 4 Active naloxone (NARCAN) 4 mg/spray [place], Non-Aerosol EMERGENCY USE ONLY: Administer 1 spray [...] Encounters Date Type Department Care Team Description 10/20/2024 External Device Data STL ABSTRACTION Provider, Abstract 10/19/2024 9:15 AM CDT Office Visit [facility] Oncology and Hematology [facility] [address] [place] [address] Cesar Tavares MD Chronic anemia (Primary Dx); 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) 10/19/2024 Orders Only [facility] Oncology and Hematology [facility] [address] [place] [address] Cesar Tavares MD 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) 10/13/2024 External Device Data STL ABSTRACTION Provider, [...] Former Cigarettes 2 10 1 997 - 2006 Smokeless Tobacco: Current Snuff Tobacco [...] Sign Reading Time Taken Comments Blood Pressure 140/88 10/19/2024 9:25 AM CDT Pulse 60 10/19/2024 9:25 AM CDT Temperature 36.3 C (97.4 F) 10/19/2024 9:25 AM CDT Respiratory Rate 15 10/19/2024 9:25 AM CDT Oxygen Saturation 93% 10/19/2024 9:25 AM CDT Inhaled Oxygen Concentration - - Weight 113.5 kg (250 lb 3.2 oz) 10/19/2024 9:25 AM CDT Height 171.5 cm (5' 7.5 ) 02/12/2022 1:19 PM CDT Body Mass Index 38.61 02/12/2022 1:19 PM CDT Plan of Treatment Upcoming Encounters Date Type Department Care Team (Late st Contact Info) Description 04/21/2025 2:30 PM CDT Office Visit [facility] Oncology and Hematology - M[place] [address] [place] [address] Cesar Tavares MD [address] [facility] [address] [place] [address] Health Maintenance Due Date Last Done Comments Pre-Diabetes and Diabetes Screening 1970 COLORECTAL SCREENING 2015 Colorectal Cancer Screening 2015 FIT-DNA Q 3 years 2015 FIT/FOBT Q 1 year 2015 Flex Sig/CT Colonography Q 5 years 2015 INFLUENZA VACCINE (#1) 2024 05/22/2022, 2018 COVID-19 Vaccine (6 - 2023-2 5 season) 2024 05/22/2022, 12/20/2021, 08/30/2021, Additional history exists DTAP/TDAP/TD VACCINES (4 - Tdap) 02/15/2031 02/15/2021, 09/28/2020, 07/14/2020 Abdominal Aortic Aneurysm (A AA) Screening Completed 07/26/2019 ZOSTER VACCINE Completed 09/28/2020, 07/14/2020 HEPATITIS B VACCINES Completed 08/30/2021, 09/28/2020, 07/14/2020 [id number] [place] [address] [employer] CHOICE PPO MCR Care Teams Aircraft Sheet Metal Mechanic Relationship Specialty Start Date End Date Ran Nuñez MD [address] [place] [address] PCP - General Family Practice 08/15/17
--- OUTSIDE RECORDS SUMMARY | 2024-12-13 09:45 | XMS_ITS | Encounter Summary ---
Author Organization [facility] [facility] Address [address] [place] [address] Care Team Providers Care School Psychologist Assistant Name Role Phone Ran Nuñez MD Primary Care Provider Reason for Visit * Reason Onset Date Comments Med Change Request 12/13/2022 Encounter Details Date Type Department Care Team (Late st Contact Info) Description 12/13/2022 Telephone [facility] Oncology and Hematology - [place] [address] [facility] [address] [place] [address] Cesar Tavares MD [address] [facility] [address] [place] [address] Med Change Request Social History [...] Description 04/21/2025 2:30 PM CDT Office Visit [facility] Oncology and Hematology - [place] [address] [facility] [address] [place] [address] Cesar Tavares MD [address] [facility] [address] [place] [address] documented as of this encounter Visit Diagnoses Diagnosis 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
--- OUTSIDE RECORDS SUMMARY | 2024-12-13 09:45 | XMS_ITS | Encounter Summary ---
Author Organization [facility] Address [address] [place] [address] Care Team Providers Care Morning Babysitter Name Role Phone Hillary Apple MD Unavailable [phone] Bill Ferrera MD Unavailable [phone] Tony Dumont MD Unavailable [phone] Shalini Segal MD Unavailable [phone] Karie Jones RN Unavailable Unavailable Maryjo Reinoso LCSW Unavailable Unavailab Madyson Nicolas PharmD Unavailable Unavaila Dana Galicia SPEECH LANGUAGE PATHOLOGY ASSISTANT-MACHINE STEMMER Unavailable + [phone] Tiffanie Nguyen SPEECH LANGUAGE PATHOLOGY ASSISTANT-ARCHITECTURAL TECHNOLOGIST Unavailable [phone] Stephanie Mahoney RN Unavailable Unavailable Alycia Galvan RN Unavailable UnavailRan Mejía MD Primary Care Provider Cesar Tavares MD Unavailable [phone] Karie Jones RN Unavailable Unavailable Joy Bob Unavailable Fanta Addison Weinstein PharmD Unavailable Unavailab Alida Chang SPEECH LANGUAGE PATHOLOGY ASSISTANT-ARCHITECTURAL TECHNOLOGIST Primary Care Provider Ran Nuñez MD Primary Care Provider Tony Dumont MD Unavailable [phone] Shalini Segal MD Unavailable [phone] Stefanie Burns RN Unavailable Unavaila Fatemeh Kelly RN Unavailable Unavailable Glenn Hernandez MD Unavailable [phone] Chandana Lu MD Unavailable Reason for Visit * Reason Comments Insurance Issue/question termination of insurance Encounter Details Date Type Department Care Team (Late st Contact Info) Description 09/20/2019 Telephone [facility] [address] [place] [address] Joy Bob Insurance Issue/question (termination of insurance) [...] AM CDT Legal 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 Answer Date of Assessment Author No 08/19/2019 10:04 AM Tiara Garrett RN * Is person blind or have serious difficulty seeing? Answer Date of Assessment Author No 08/19/2019 10:04 AM Tiara Garrett RN * Does person have serious difficulty walking/climbing stairs? Answer Date of Assessment Author No 08/19/2019 10:04 AM Tiara Garrett RN * Does person have difficulty dressing/bathing? Answer Date of Assessment Author No 08/19/2019 10:04 AM Tiara Garrett RN * Does person have difficulty doing errands alone? Answer Date of Assessment Author No 08/19/2019 10:04 AM Tiara Garrett RN documented as of this encounter Mental Status * Does person have difficulty concentrating/remembering/making decisions? Answer Entry Date Author No 08/19/2019 10:04 AM COLD ROLLER Tiara Nguyen RN documented in this encounter Miscellaneous Notes * Telephone Encounter - Joy Bob - 09/20/2019 12:18 PM COLD ROLLER Called and spoke with Mr. Guillen and discussed the termination of his insurance and find out if he has obtained a different insurance plan. Mr. Guillen stated he was not aware that his plan changed and was recently told. 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 He stated [employer] will be the coverage for his senior living disability insurance, but they are waiting on a letter from the Human Resource Department. I asked Mr. Guillen if he spoke with or received any information from the HR Department about COBRA,he stated no. I asked and was giving the HR Department contact number [phone]. I informed Mr. Guillen that he will [...] and Anastasia Nice notified in inactive coverage. ROLLER documented in this encounter Plan of Treatment [...] COVID-19 Confirmed 03/06/2020 07/14/2020 0 4:33 AM COLD ROLLER COVID-19 Under Investigation 03/07/2020 03/07/2020 03/09/2020 8:54 AM CDT COVID-19 Under Investigation 03/29/2020 03/29/2020 03/30/2020 9:42 AM CDT COVID-19 Confirmed 08/31/2020 08/31/2020 4:34 AM COLD ROLLER COVID-19 Confirmed 09/28/2020 09/28/2020 4:33 AM COLD ROLLER COVID-19 Under Investigation 11/16/2020 11/16/2020 11/16/2020 6:52 PM CDT COVID-19 Confirmed 11/16/2020 11/16/2020 4:35 AM CDT COVID-19 Under Investigation 12/20/2020 12/20/2020 12/20/2020 6:23 PM CDT COVID-19 Under Investigation 04/21/2021 04/21/2021 2021 6:42 AM CDT documented as of this encounter Care Teams Morning Babysitter Relationship Specialty Start Date End Date Ran Nuñez MD [address] [place] [address] PCP - General Family Medicine 03/22/19 12/22/20 Alida Marshall APRN-ARCHITECTURAL TECHNOLOGIST [address] [facility] [place] [address] PCP - General Family Medicine 12/23/20 08/29/21 Ran Nuñez MD [address] [place] [address] PCP - General Family Medicine 08/30/21 [place] [address] [facility] [place] [address] PCP - Attributed-Stefany MANRIQUEZ 03/04/23 08/21/23 Hillary Apple MD [address] [place] [address] Hematology and Oncology 03/17/19 Bill Ferrera MD [address] [place] [address] Hematology and Oncology 03/17/19 08/27/21 Tony Dumont MD [address] [place] [address] Hematology and Oncology 03/17/19 Shalini Segal MD [address] [place] [address] Hematology and Oncology 03/17/19 09/29/19 Karie Jones, RN Registered Nurse 03/17/19 09/21/19 Maryjo Reinoso, CURING OVEN ATTENDANT Coke Production Heater 03/17/19 Madyson Clay, PharmD 03/17/19 Dana Lala, SPEECH LANGUAGE PATHOLOGY ASSISTANT-MACHINE STEMMER [address] [place] [address] [address] [place] [address] Oncology 03/17/19 Tiffanie Nguyen, SPEECH LANGUAGE PATHOLOGY ASSISTANT-ARCHITECTURAL TECHNOLOGIST [address] [place] [address] [address] [place] [address] Family Medicine 03/17/19 Stephanie Mahoney RN Registered Nurse 03/17/19 10/29/21 Alycia Galvan, ROSEMARY 03/17/19 10/29/21 Cesar Tavares MD [address] [place] [address] [place] [address] Referring Physician Medical Oncology 03/23/19 Karie Jones, RN Registered Nurse 06/08/19 10/29/21 Joy Bob 09/22/19 Addison Shea, EusebioD Pharmacist 09/22/19 10/29/21 Tony Dumont MD [address] [place] [address] Hematology and Oncology 10/30/21 Shalini Segal MD [address] [facility] [place] [address] Lithopone Mill Worker/Oncologis t Hematology and Oncology 10/30/21 Stefanie Burns, RN Registered Nurse 10/30/21 Fatemeh Bolaños RN Registered Nurse 10/30/21 Chandana Lu MD [address] [place] [address] Orthopedic Surgery 03/30/24 documented as of this encounter
--- OUTSIDE RECORDS SUMMARY | 2024-12-13 09:45 | XMS_ITS | Encounter Summary ---
Author Organization [facility] [employer] Address [address] [place] [address] Care Team Providers Care Re Examiner Name Role Phone Ran Nuñez MD Primary Care Provider Encounter Details Date Type Department Care Team ([facility] Contact Info) Description 12/19/2022 Abstract [facility] Oncology and Hematology [facility] [address] [place] [address] Chuck Aguilera, ROSEMARY Social History [...] Upcoming Encounters Date Type Department Care Team ([facility] Contact Info) Description 04/21/2025 2:30 PM CDT Office Visit [facility] Oncology and Hematology [place] [address] [place] [address] Cesar Tavares MD [address] [facility] [address] [place] [address] documented as of this encounter Visit Diagnoses Not on filedocumented in this encounter Care Teams Re Examiner Relationship Specialty Start Date End Date Ran Nuñez MD [address] [place] [address] PCP - General Family Practice 08/15/17 documented as of this encounter
--- OUTSIDE RECORDS SUMMARY | 2024-12-13 09:45 | XMS_ITS | Encounter Summary ---
Author Organization [facility] Address [address] [place] [address] Care Team Providers Care Career Services Representative Name Role Phone Hillary Apple MD Unavailable [phone] Bill Ferrera MD Unavailable [phone] Tony Dumont MD Unavailable [phone] Maryjo Reinoso LCSW Unavailable Unavailab Madyson Nicolas PharmD Unavailable Unavaila Dana Galicia PROOF TESTER-RAILROAD CAR REPAIR SUPERVISOR Unavailable + [phone] Tiffanie Nguyen PROOF TESTER-FISH CAKE MAKER Unavailable [phone] Stephanie Mahoney RN Unavailable Unavailable Alycia Galvan RN Unavailable UnavailRan Mejía MD Primary Care Provider Cesar Tavraes MD Unavailable [phone] Karie Jones RN Unavailable Unavailable Joy Bob Unavailable Fanta Addison Weinstein PharmD Unavailable Unavailab Alida Chang PROOF TESTER-FISH CAKE MAKER Primary Care Provider Ran Nuñez MD Primary Care Provider Tony Dumont MD Unavailable [phone] Shalini Segal MD Unavailable [phone] Stefanie Burns RN Unavailable Unavaila Fatemeh eKlly RN Unavailable Unavailable Glenn Hernandez MD Unavailable Chandana Lu MD Unavailable Reason for Visit * Reason Onset Date Comments MEDICATION REFILL 10/02/2020 Encounter Details Date Type Department Care Team (Late st Contact Info) Description 10/02/2020 Refill [facility] [address] [place] [address] Hillary Apple MD [address] [facility] [place] [address] MEDICATION REFILL Social History Tobacco Use Types [...] AM CDT 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 No / Unsure 09/28/2020 1:10 PM WHIPPED TOPPING FINISHER documented as of this encounter Functional Status [...] 02/25/2020 10:12 PM CDT Rylee Coreas RN documented as of this encounter Mental Status * Does person have difficulty concentrating/remembering/making decisions? Answer Entry Date Author No 02/25/2020 10:12 PM CDT Rylee Coreas RN documented in this encounter Plan of Treatment Not on file documented as of this encounter Visit Diagnoses Not on filedocumented in this encounter Additional Health Concerns Infection Onset Date Last Indicated Resolved Time COVID-19 Confirmed 09/28/2020 09/28/2020 4:33 AM WHIPPED TOPPING FINISHER COVID-19 Under Investigation 11/16/2020 11/16/2020 11/16/2020 6:52 PM CDT COVID-19 Confirmed 11/16/2020 11/16/2020 4:35 AM CDT COVID-19 Under Investigation 12/20/2020 12/20/2020 12/20/2020 6:23 PM CDT COVID-19 Under Investigation 04/21/2021 04/21/2021 2021 6:42 AM CDT documented as of this encounter Care Teams Career Services Representative Relationship Specialty Start Date End Date Ran Nuñez MD [address] [place] [address] PCP - General Family Medicine 03/22/19 12/22/20 Alida Marshall APRN-FISH CAKE MAKER [address] [facility] [place] [address] PCP - General Family Medicine 12/23/20 08/29/21 Ran Nuñez MD [address] [place] [address] PCP - General Family Medicine 08/30/21 [place] [address] [place] [address] PCP - Attributed-[facility] 03/04/23 08/21/23 Hillary Apple MD [address] [place] [address] Hematology and Oncology 03/17/19 Bill Ferrera MD [address] [place] [address] Hematology and Oncology 03/17/19 08/27/21 Tony Dumont MD [address] [place] [address] Hematology and Oncology 03/17/19 Maryjo Reinoso, [facility] Tailercpa 03/17/19 Madyson Clay, PharmD 03/17/19 Dana Lala, PROOF TESTER-RAILROAD CAR REPAIR SUPERVISOR [address] [place] [address] [address]nd [place] [address] Oncology 03/17/19 Tiffanie Nguyen, PROOF TESTER-FISH CAKE MAKER [address] [place] [address] 2nd [place] [address] Family Medicine 03/17/19 Stephanie Mahoney, RN Registered Nurse 03/17/19 10/29/21 lAycia Galvan, ROSEMARY 03/17/19 10/29/21 Cesar Tavares MD [address] [place] [address] Referring Physician Medical Oncology 03/23/19 Karie Jones, RN Registered Nurse 06/08/19 10/29/21 Joy Bob 09/22/19 Addison Shea, PharmD Pharmacist 09/22/19 10/29/21 Tony Dumont MD [address] [place] [address] Hematology and Oncology 10/30/21 Shalini Segal MD [address] [facility] [place] [address] Tank Truck Mechanic/Oncologis t Hematology and Oncology 10/30/21 Stefanie Burns, RN Registered Nurse 10/30/21 Fatemeh Bolaños, RN Registered Nurse 10/30/21 Chandana Lu MD [address] [place] [address] Orthopedic Surgery 03/30/24 documented as of this encounter
--- OUTSIDE RECORDS SUMMARY | 2024-12-13 09:45 | XMS_ITS | Encounter Summary ---
Author Organization [facility] Address [address] [facility] [place] [address] Care Team Providers Care Director Behavioral Health Name Role Phone Hillary Apple MD Unavailable [phone] Bill Ferrera MD Unavailable [phone] Tony Dumont MD Unavailable [phone] Shalini Segal MD Unavailable [phone] Karie Jones RN Unavailable Unavailable Maryjo Reinoso LCSW Unavailable Unavailab Madyson Nicolas PharmD Unavailable Unavaila Dana Galicia STATIONARY STEAM ENGINEER-ENGINE WATCHMAN Unavailable + [phone] Mckinley SilverC Unavailable Unavail able Patrick, Lara STATIONARY STEAM ENGINEER-ELECTRONIC VIDEO GAMES SERVICER Unavailable [phone] Stephanie Mahoney RN Unavailable Unavailable Alycia Galvan RN Unavailable UnavailRan Mejía MD Primary Care Provider Cesar Tavares MD Unavailable [phone] Karie Jones RN Unavailable Unavailable Joy Bob Unavailable Fanta Addison Weinstein PharmD Unavailable Unavailab Alida Chang STATIONARY STEAM ENGINEER-ELECTRONIC VIDEO GAMES SERVICER Primary Care Provider Ran Nuñez MD Primary Care Provider Tony Dumont MD Unavailable [phone] Shalini Segal MD Unavailable Stefanie Burns RN Unavailable Unavaila Fatemeh Kelly RN Unavailable Unavailable Glenn Hernandez MD Unavailable Chandana Lu MD Unavailable Encounter Details Date Type Department Care Team (Late st Contact Info) Description 03/23/2019 Lab Requisition [facility] Care Pathology Lab [address] [place] [address] Ulises Howell MD [address] [place], [place] [address] Non-Hodgkin lymphoma Social History Tobacco Use Types Packs/Day Years Used Date Smoking Tobacco: Never Assessed Sex and Gender Information Value Date Recorded Sex Assigned at Male 03/27/2022 11:34 AM CDT 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 - See interpretation. 03/24/2019 [...] the flow cytometry specimen is reviewed for air quality chemist purposes. In summary, the bone marrow specimen shows evidence of involvement by a CD5-negative, [id number] mature B-cell lymphoma. Correlation with additional clinical information, the concurrent bone marrow biopsy specimen, and relevant cytogenetic/molecu lar testing is required for further classification. KR 03/24/2019 11:14 AM [facility] PATHOLOGY LAB Flow Cytometry Results Differential Result Comment Flow Cell Count /uL 30,000 Total Viability % 95.0 Lymphocytes % 11 Dim CD45 Region % 3 Monocytes % 3 Granulocytes % 80 03/24/2019 11:14 AM [facility] Reason for test Non-Hodgkin lymphoma 202.80 03/24/2019 11:14 [facility] Client Specimen ID # [id number] 03/24/2019 11:14 AM [facility] PATHOLOG[facility] LAB Number of markers 13 were performed. A-1 Flow CD3 A-3 Flow CD10 A-5 Flow CD20 A-6 Flow CD23 A-11 Flow CD25 A-12 Flow CD103 A-13 Flow CD11c A-2 Flow CD5 A-4 Flow CD19 A-7 Flow CD34 A-8 Flow CD45 A-9 Wingate+CD19+ A-10 Lambda+CD19+ 03/24/2019 11:14 AM [facility] PATHOLOGY LAB Disclaimer Test performed at [facility], [address] [place] [address], [address]. *The established laboratory minimum viability is 70%. [...] LAB Embedded Images 9 11:14 AM CDT [facility] PATHOLOGY LAB Pathology/Cytolo gy BONE MARROW SPECIMEN / Unknown 03/23/2019 10:40 AM CDT 03/23/2019 1:04 PM CDT Ulises Howell MD LAB - PATHOLOGY/CYTOLOGY ORDER [place] Final Result Performing Organization Address City/State/[facility] Co de Phone Number [facility] PATHOLOGY LAB [address] [phone] documented in this encounter Visit Diagnoses Diagnosis [...] COVID-19 Confirmed 03/06/2020 07/14/2020 0 4:33 AM SUBSTITUTE TEACHER COVID-19 Under Investigation 03/07/2020 03/07/2020 03/09/2020 8:54 AM CDT COVID-19 Under Investigation 03/29/2020 03/29/2020 03/30/2020 9:42 AM CDT COVID-19 Confirmed 08/31/2020 08/31/2020 1 4:34 AM SUBSTITUTE TEACHER COVID-19 Confirmed 09/28/2020 09/28/2020 1 4:33 AM SUBSTITUTE TEACHER COVID-19 Under Investigation 11/16/2020 11/16/2020 11/16/2020 6:52 PM CDT COVID-19 Confirmed 11/16/2020 11/16/2020 1 4:35 AM CDT COVID-19 Under Investigation 12/20/2020 12/20/2020 12/20/2020 6:23 PM CDT COVID-19 Under Investigation 04/21/2021 04/21/2021 2021 6:42 AM CDT documented as of this encounter Care Teams Director Behavioral Health Relationship Specialty Start Date End Date Ran Nuñez MD [address] [place] [address] PCP - General Family Medicine 03/22/19 12/22/20 Alida Marshall APRN-ELECTRONIC VIDEO GAMES SERVICER [address] [place] [address] OF HEMATOLOGY & [place] [address] PCP - General Family Medicine 12/23/20 08/29/21 Ran Nuñez MD [address] [place] [address] PCP - General Family Medicine 08/30/21 [place] [address] [place] [address] [facility] - [facility] 03/04/23 08/21/23 Hillary Apple MD [address] [place] [address] Hematology and Oncology 03/17/19 Bill Ferrera MD [address] [place] [address] Hematology and Oncology 03/17/19 08/27/21 Tony Dumont MD [address] [place] [address] Hematology and Oncology 03/17/19 Shalini Segal MD [facility] [place] [address] Hematology and Oncology 03/17/19 09/29/19 Karie Jones, RN Registered Nurse 03/17/19 09/21/19 Maryjo Reinoso, [facility] Centerless Grinding Machine Adjuster 03/17/19 Madyson Clay, PharmD 03/17/19 Dana Lala, STATIONARY STEAM ENGINEER-ENGINE WATCHMAN [address] [place] [address] [address] [place] [address] Oncology 03/17/19 Mckinley Silver PA-C [address] [place] [address] [place] [address] Physician Buckle And Button Maker 03/17/19 09/08/19 Tiffanie Nguyen, STATIONARY STEAM ENGINEER-ELECTRONIC VIDEO GAMES SERVICER [address] [place] [address] [place] [address] Family Medicine 03/17/19 Stephanie Mahoney, RN Registered Nurse 03/17/19 10/29/21 Alycia Galvan, RN 03/17/19 10/29/21 Cesar Tavares MD [address] [place] [address] Referring Physician Medical Oncology 03/23/19 Karie Jones, RN Registered Nurse 06/08/19 10/29/21 Joy Bob 09/22/19 Addison Shea, PharmD Pharmacist 09/22/19 10/29/21 Tony Dumont MD [address] [place] [address] Hematology and Oncology 10/30/21 Shalini Segal MD [address] [facility] [place] [address] Glass Fitter/Oncologis t Hematology and Oncology 10/30/21 Stefanie Burns, RN Registered Nurse 10/30/21 Fatemeh oBlaños RN Registered Nurse 10/30/21 Chandana Lu MD [address] [place] [address] Orthopedic Surgery 03/30/24 documented as of this encounter
--- OUTSIDE RECORDS SUMMARY | 2024-12-13 09:45 | XMS_ITS ---
Author Organization [facility] Address [address] [facility] [place] [address] Care Team Providers Care Performance Improvement Director Name Role Phone Hillary Apple MD Unavailable [phone] Tony Dumont MD Unavailable [phone] Maryjo ReinosoW Unavailable Unavailab Madyson Nicolas PharmD Unavailable Unavaila Dana Galicia SENIOR SYSTEMS ENGINEER-WASH HELPER Unavailable [phone] Tiffanie Nguyen SENIOR SYSTEMS ENGINEER-LUBRICATION SUPERVISOR Unavailable [phone] Cesar Tavares MD Unavailable [phone] Joy Bob Unavailable Fanta Ran Augustine MD Primary Care Provider Tony Dumont MD Unavailable [phone] Shalini Segal MD Unavailable [phone] Stefanie Burns RN Unavailable Unavaila Fatemeh Kelly RN Unavailable Unavailable Chandana Lu MD Unavailable [phone] Active Problems Problem Noted Date Diagnosed [...] opacity present on imaging of lung Current Treatment and Therapy Plans BMT [facility] SUPPORTIVE CARE?[facility] USE ONLY* Plan Start Date:05/24/2019 Plan Provider:Tiffanie Nguyen APRN-CNP Linked Problems Diffuse large B-cell lymphom a, unspecified body region (HCC) Treatment Medications No medications scheduled. Past Treatment and Therapy Plans ONCOLOGY ADJUNCTIVE CARE Plan Name Start [...] Discontinue Reason Plan Provider Cycles BMT CONDITIONING [id number] SCHEMA A - (BEAM) CARMUSTINE + ETOPOSIDE + CYTARABINE + MELPHALAN 10/19/19 20 08/04/2022 carmustine (BCNU) Infusioncytarabine (Cytosar) Infusionetoposide (Vepesid) 1250 mL infusionmelphalan (Alkeran) infusion Therapy Complete Rafaela Sood APRN-CNP 2 of 2 cycles started Lifetime Dose Tracking * Chemical Lifetime Dose Automatic Entry Manual Entr y Dose Length Product 8,650.6 mGy-cm 8,650.6 mGy-cm 0 mG y-cm
--- OUTSIDE RECORDS SUMMARY | 2024-12-13 09:45 | XMS_ITS | Encounter Summary ---
Author Organization [facility] Address [address] [facility] [place] [address] Care Team Providers Care Information Developer Name Role Phone Hillary Apple MD Unavailable [phone] Bill Ferrera MD Unavailable [phone] Tony Dumont MD Unavailable [phone] Maryjo Reinoso LCSW Unavailable Unavailab Madyson Nicolas PharmD Unavailable Unavaila Dana Galicia PROGRAM REP-COACH MECHANIC Unavailable + [phone] Tiffanie Nguyen PROGRAM REP-CERTIFIED MEDICAL TECHNICIAN Unavailable [phone] Stephanie Mahoney RN Unavailable Unavailable Alycia Galvan RN Unavailable UnavailRan Mejía MD Primary Care Provider Cesar Tavares MD Unavailable [phone] Karie Jones RN Unavailable Unavailable Joy Bob Unavailable Fanta Addison Weinstein PharmD Unavailable Unavailab Alida Chang PROGRAM REP-CERTIFIED MEDICAL TECHNICIAN Primary Care Provider Ran Nuñez MD Primary Care Provider Tony Dumont MD Unavailable [phone] Shalini Segal MD Unavailable [phone] Stefanie Burns RN Unavailable Unavaila Fatemeh Kelly RN Unavailable Unavailable Glenn Hernandez MD Unavailable Chandana Lu MD Unavailable Reason for Visit * Reason Onset Date Comments MEDICATION REFILL 10/01/2020 Encounter Details Date Type Department Care Team (Late st Contact Info) Description 10/01/2020 Refill [facility] [address] [place] [address] Hillary Apple MD [address] 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 No / Unsure 09/28/2020 1:10 PM SYNTHETIC STAPLE EXTRUDER documented as of this encounter Functional Status [...] Time COVID-19 Confirmed 09/28/2020 09/28/2020 4:33 AM SYNTHETIC STAPLE EXTRUDER COVID-19 Under Investigation 11/16/2020 11/16/2020 11/16/2020 6:52 PM CDT COVID-19 Confirmed 11/16/2020 11/16/2020 4:35 AM CDT COVID-19 Under Investigation 12/20/2020 12/20/2020 12/20/2020 6:23 PM CDT COVID-19 Under Investigation 04/21/2021 04/21/2021 2021 6:42 AM CDT documented as of this encounter Care Teams Information Developer Relationship Specialty Start Date End Date Ran Nuñez MD [address] [place] [address] PCP - General Family Medicine 03/22/19 12/22/20 Alida Marshall APRN-CERTIFIED MEDICAL TECHNICIAN [address] [facility] [place] [address] PCP - General Family Medicine 12/23/20 08/29/21 Ran Nuñez MD [address] [place] [address] PCP - General Family Medicine 08/30/21 [place] [address] [place] [address] PCP - [facility] 03/04/23 08/21/23 Hillary Apple MD [address] [place] [address] Hematology and Oncology 03/17/19 Bill Ferrera MD [address] [place] [address] Hematology and Oncology 03/17/19 08/27/21 Tony Dumont MD [address] [place] [address] Hematology and Oncology 03/17/19 Maryjo Reinoso, [facility] Construction Code Administrator 03/17/19 Madyson Clay, PharmD 03/17/19 Dana Lala, PROGRAM REP-COACH MECHANIC [address] [place] [address] [address] [place] [address] Oncology 03/17/19 Tiffanie Nguyen, PROGRAM REP-CERTIFIED MEDICAL TECHNICIAN [address] [place] [address] [address] [place] [address] Family Medicine 03/17/19 Stephanie Mahoney, RN Registered Nurse 03/17/19 10/29/21 Alycia Galvan, ROSEMARY 03/17/19 10/29/21 Cesar Tavares MD [address] [place] [address] Referring Physician Medical Oncology 03/23/19 Karie Jones, RN Registered Nurse 06/08/19 10/29/21 Joy Bob 09/22/19 Addison Shea, PharmD Pharmacist 09/22/19 10/29/21 Tony Dumont MD [address] [place] [address] Hematology and Oncology 10/30/21 Shalini Segal MD [address] [facility] [place] [address] Campus Rep/Oncologis t Hematology and Oncology 10/30/21 Stefanie Burns, RN Registered Nurse 10/30/21 Fatemeh Bolaños, RN Registered Nurse 10/30/21 Chandana Lu MD [address] [place] [address] Orthopedic Surgery 03/30/24 documented as of this encounter
--- OUTSIDE RECORDS SUMMARY | 2024-12-13 09:45 | XMS_ITS | Encounter Summary ---
Author Organization [facility] Address [address] [place] [address] Care Team Providers Care Hypoid Gear Tester Name Role Phone Hillary Apple MD Unavailable [phone] Bill Ferrera MD Unavailable [phone] Tony Dumont MD Unavailable [phone] Maryjo Reinoso LCSW Unavailable Unavailab Madyson Nicolas PharmD Unavailable Unavaila Dana Galicia COTTON GINNER-SLATE PICKER Unavailable + [phone] Tiffanie Nguyen COTTON GINNER-CONGRESSIONAL ASSISTANT Unavailable [phone] Stephanie Mahoney RN Unavailable Unavailable Alycia Galvan RN Unavailable UnavailRan Mejía MD Primary Care Provider Cesar Tavares MD Unavailable [phone] Karie Jones RN Unavailable Unavailable Joy Bob Unavailable Fanta Addison Weinstein PharmD Unavailable Unavailab Alida Chang COTTON GINNER-CONGRESSIONAL ASSISTANT Primary Care Provider Ran Nuñez MD Primary Care Provider Tony Dumont MD Unavailable [phone] Shalini Segal MD Unavailable [phone] Stefanie Burns RN Unavailable Unavaila Fatemeh Kelly RN Unavailable Unavailable Glenn Hernandez MD Unavailable Chandana Lu MD Unavailable Encounter Details Date Type Department Care Team (Late st Contact Info) Description 02/10/2020 Telephone [facility] [address] [place] [address] Stephanie Mahoney RN Social History Tobacco Use [...] AM CDT 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 Answer Date of Assessment Author No 10/13/2019 3:33 PM CDT Izzy Garcia RN * Is person blind or have serious difficulty seeing? Answer Date of Assessment Author No 10/13/2019 3:33 PM CDT Izzy Garcia RN * Does person have serious difficulty walking/climbing stairs? Answer Date of Assessment Author No 10/13/2019 3:33 PM CDT Izzy Garcia RN * Does person have difficulty dressing/bathing? Answer Date of Assessment Author No 10/13/2019 3:33 PM CDT Izzy Garcia RN * Does person have difficulty doing errands alone? Answer Date of Assessment Author No 10/13/2019 3:33 PM CDT Izzy Garcia RN documented as of this encounter Mental Status * Does person have difficulty concentrating/remembering/making decisions? Answer Entry Date Author No 10/13/2019 3:33 PM DOUGLAST Izzy Garcia RN documented in this encounter Miscellaneous Notes * Telephone Encounter - Stephanie Mahoney RN - 02/10/2020 10:11 AM CDT Called patient to go over pre-procedure instructions and apt time. Patient did state recent COVID exposure and still having a fever and loose stool as of last night. Notified BMT SPIRAL WEAVER Tiffanie and we are going to hold [...] COVID-19 Confirmed 03/06/2020 07/14/2020 0 4:33 AM TRIMMING CASER COVID-19 Under Investigation 03/07/2020 03/07/2020 03/09/2020 8:54 AM CDT COVID-19 Under Investigation 03/29/2020 03/29/2020 03/30/2020 9:42 AM CDT COVID-19 Confirmed 08/31/2020 08/31/2020 1 4:34 AM TRIMMING CASER COVID-19 Confirmed 09/28/2020 09/28/2020 1 4:33 AM TRIMMING CASER COVID-19 Under Investigation 11/16/2020 11/16/2020 11/16/2020 6:52 PM CDT COVID-19 Confirmed 11/16/2020 11/16/2020 1 4:35 AM CDT COVID-19 Under Investigation 12/20/2020 12/20/2020 12/20/2020 6:23 PM CDT COVID-19 Under Investigation 04/21/2021 04/21/2021 2021 6:42 AM CDT documented as of this encounter Care Teams Hypoid Gear Tester Relationship Specialty Start Date End Date Ran Nuñez MD [address] [place] [address] PCP - General Family Medicine 03/22/19 12/22/20 Alida Marshall APRN-CONGRESSIONAL ASSISTANT [address] [facility] [place] [address] PCP - General Family Medicine 12/23/20 08/29/21 Ran Nuñez MD [address] [place] [address] PCP - General Family Medicine 08/30/21 [place] [address] [place] [address] [facility] 03/[facility]/23 08/21/23 Hillary Apple MD [address] [place] [address] Hematology and Oncology 03/17/19 Bill Ferrera MD [address] [place] [address] Hematology and Oncology 03/17/19 08/27/21 Tony Dumont MD [address] [place] [address] Hematology and Oncology 03/17/19 Maryjo Reinoso, ANIMAL BIOLOGIST Storeroom Supervisor 03/17/19 Madyson Clay, PharmD 03/17/19 Dana Lala, COTTON GINNER-SLATE PICKER [address] [facility] [address]nd [place] [address] Oncology 03/17/19 Tiffanie Nguyen, COTTON GINNER-CONGRESSIONAL ASSISTANT [address] [facility] [address] [place] [address] Family Medicine 03/17/19 tSephanie Mahoney, RN Registered Nurse 03/17/19 10/29/21 Alycia Galvan, RN 03/17/19 10/29/21 Cesar Tavares MD [address] [place] [address] Referring Physician Medical Oncology 03/23/19 Karie Jones, RN Registered Nurse 06/08/19 10/29/21 Joy Bob 09/22/19 Addison Shea, PharmD Pharmacist 09/22/19 10/29/21 Tony Dumont MD [address] [place] [address] Hematology and Oncology 10/30/21 Shalini Segal MD [address] [facility] [place] [address] Channel Marketing Coordinator/Oncologis t Hematology and Oncology 10/30/21 Stefanie Burns, RN Registered Nurse 10/30/21 Fatemeh Bolaños, RN Registered Nurse 10/30/21 Chandana Lu MD [address] [place] [address] Orthopedic Surgery 03/30/24 documented as of this encounter
--- OUTSIDE RECORDS SUMMARY | 2024-12-13 09:45 | XMS_ITS | Clinical Summary ---
Author Organization [facility] Address [address] [facility] [place] [address] Care Team Providers Care Flatbed Press Operator Name Role Phone Hillary Apple MD Unavailable [phone] Tony Dumont MD Unavailable [phone] Maryjo ReinosoW Unavailable Unavailab Madyson Nicolas PharmD Unavailable Unavaila Dana Galicia AIRLINE RESERVATION AGENT-SUPERINTENDENT MAINTENANCE AIRPORTS Unavailable [phone] Tiffanie Nguyen AIRLINE RESERVATION AGENT-ENGINEERING SECRETARY Unavailable [phone] Cesar Tavares MD Unavailable [phone] Joy Bob Unavailable Fanta Ran Augustine MD Primary Care Provider Tony Dumont MD Unavailable [phone] Shalini Segal MD Unavailable [phone] Stefanie Burns RN Unavailable Unavaila Fatemeh Kelly RN Unavailable Unavailable Chandana Lu MD Unavailable [phone] [facility],non-owned Affiliates and Associated Physician Practices is amultiple site organization consisting of ambulatory clinics and hospital sitesin [place], [place], [place] and [place]. This disclosure is being madepursuant to the Care Everywhere program and may not contain all information available regarding this patient. Last updated 18.[facility] Allergies Active Allergy Reactions Criticality Noted Date Comments Adhesive Sensitivity Urticaria,Other Medium 08/17/2019 Electrodes -- welps where stickers are Also, use paper tape Medications * Be aware that medications may not be up to date on this document. Alwaysverify current medications with the patient. multivitamin daily tablet Take 1 (one) tablet by mouth daily with food Active acetaminophen (TYLENOL) 325 MG tablet Take 1 tablet by mouth every 4 hours as needed Maximum allowable Acetaminophen amount = 4 Grams (4000 mg) / 24 hours. 0 Active albuterol HFA (PROVENTIL;EZEQUIEL TOLIN;PROAIR) 108 (90 Base) MCG/ACT inhaler Inhale 2 puffs by mouth every 4 hours 0 Active rOPINIRole (REQUIP) 0.25 MG tabletIndicati ons:Restless Leg Syndrome Take 1 (one) tablet by mouth at bedtime Reasons: Restless Leg Syndrome 90 tablet 3 1 Active penicillin V potassium (VEETIDS) 250 MG tablet Take 1 (one) tablet by mouth 2 times daily 60 tablet 11 1 Active escitalopram (LEXAPRO) 20 MG tablet TAKE 1 TABLET BY MOUTH EVERY DAY 30 tablet 11 2 Active clonazePAM (KLONOPIN) 1 MG tablet Take 1 (one) tablet by mouth at bedtime 30 tablet 2 Active HYDROcodone-ac etaminophen (NORCO) 5-325 MG tablet Take 1 (one) tablet by mouth every 6 hours as needed for Pain Active benzonatate (Tessalon) 200 MG capsule Take 1 (one) capsule by mouth 3 times daily as needed for Cough 30 capsule 2 Active albuterol HFA (Ventolin HFA) 108 (90 Base) MCG/ACT inhaler Inhale 2 (two) puffs by mouth every 4 hours as needed 54 g 4 3 Active cyanocobalamin 100 MCG tablet Take 1 (one) tablet by mouth once daily Active ondansetron (Zofran) 8 MG tablet 3 Active acyclovir (Zovirax) 400 MG tabletIndicati ons:Stem cells transplant status (HCC) Take 2 (two) tablets by mouth 2 times daily 360 tablet 3 3 Active Fluticasone-Um eclidin-Vilant (Trelegy Ellipta) 100-62.5-25 MCG/ACT Inhale 1 (one) puff by mouth once daily 28 Each 5 4 Active Active Problems Problem Noted Date Diagnosed [...] opacity present on imaging of lung Immunizations Immunization Administration Dates Next Due COVID PFIZER BIVALENT 12Y+ 30mcg/0.3ML Covid Pfizer primary Monoval ent 12+ yr 0.3ml 12/20/2021 Covid Pfizer primary monoval ent 12+ yr 0.3mL Purple cap 08/30/2021,12/07/2020,11/16/2020 DTAP 5 PERTUSSIS ANTIGENS 02/15/2021,09/28/2020, 07/14/2020 HEP A/HEP B 08/30/2021,09/28/2020,07/14/2020 HIB-PRP-T 4 DOSE 02/15/2021,,06/16/2020,08/11 INFLUENZA VACCINE, HIGH-DOSE , QUADR. (FLUZONE HIGH-DOSE QUADRIVALENT; 65Y+), 0.7 ML (HD-IIV4) 05/22/2022,05/24/2019 MENINGOCOCCAL ACWY MENVEO 08/31/2020,06/16/2020, 08/11/2019 MMR 05/22/2022 PNEUMOCOCCAL PPSV23 08/30/2021,08/11/2019 POLIO IPV [...] AM CDT Legal 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 PLUMBING DESIGNER Gender Identity Male 03/27/2022 11:34 AM CDT Sexual Orientation Straight 03/27/2022 11 :34 AM CDT Last Filed Vital Signs Vital Sign Reading Time Taken Comments Blood Pressure 101/70 02/26/2024 8:05 AM CDT Pulse 69 02/26/2024 8:05 AM CDT Temperature 37.2 C (99 F) 06/30/2022 6:32 PM PLUMBING DESIGNER Respiratory Rate 17 02/26/2024 8:05 AM CDT [...] 2024 05/22/2022, 12/20/2021, 08/30/2021, Additional history exists DEPRESSION SCREENING 08/04/2024 06/30/2022 MEDICARE AWV CALENDAR YEAR 2024 SCREENING FOR DIABETES 08/30/2024 , 02/15/2021, 12/20/2020, Additional history exists INFLUENZA VACCINE (Season Ended) 2025 05/22/2022, 05/24/2019 MENINGOCOCCAL GROUPS A/C/Y/W VACCINE (3 - Risk [...] this topic Medical Devices Implanted Type Area Candy Cutter Hand Device Identifier Shelf Expiration Date Model / Serial / Lot Tray Cath 12fr 23cm Hkmn Trifusion 3 Lum Implanted:Qty: 1 on 09/17/2019 at [facility] [employer] 05/03/2021 [id number] / / [id number] Procedures Procedure Name Priority Date/Time Associated Diagnosis Comments COMPREHENSIVE METABOLIC PANEL STAT 08/30/2021 11:36 AM PLUMBING DESIGNER Diffuse large B-cell lymphoma, unspecified body region LIPID PROFILE Routine 08/30/2021 11:36 AM PLUMBING DESIGNER Diffuse large B-cell lymphoma, unspecified body region S/P autologous bone marrow transplantation HEPATITIS C ANTIBODY Routine 09/09/2019 12:42 PM PLUMBING DESIGNER Pre-transplant evaluation for stem cell transplant HIV-1 HIV-2 ANTIGEN/ANTIBODY Routine 03/22/2019 3:00 PM CDT Diffuse large B-cell lymphoma, unspecified body region from Last 3 Months or Most Recently Relevant to Health Maintenance Results * (ABNORMAL) COMPREHENSIVE METABOLIC PANEL (08/30/2021 11:36 AM PLUMBING DESIGNER) BUN 12 7 - 26 mg/dL 08/30/2021 12:10 PM [facility] Creatinine 1.02 0.71 - 1.16 mg/dL 08/30/2021 12:10 PM [facility] Sodium 140 136 - 145 mmol/L 08/30/2021 12:10 PM [facility] Potassium 4.8(H) 3.5 - 4.5 mmol/L 08/30/2021 12:10 PM [facility] Chloride 107 98 - 107 mmol/L 08/30/2021 12:10 PM [facility] CO2 23 22 - 29 mmol/L [...] Unknown Venipuncture / Unknown 08/30/2021 11:36 AM PLUMBING DESIGNER 08/30/2021 11:46 AM [facility] us Tiffanie Nguyen AIRLINE RESERVATION AGENT-ENGINEERING SECRETARY LAB - CHEMISTRY ORDERAB LES Final Result [facility] [address] [place] [address], [facility] [phone] * (ABNORMAL) LIPID PROFILE (08/30/2021 11:36 AM [facility]) Cholesterol Total 207(H) <200 mg/dL 08/30/2021 [...] Unknown Venipuncture / Unknown 08/30/2021 11:36 AM PLUMBING DESIGNER 08/30/2021 11:46 AM PLUMBING DESIGNER us Tiffanie Nguyen [facility]LINE [facility] - CHEMISTRY ORDERAB LES Final Result Performing Organization Address City/[facility]/ZIP Co de Phone Number [facility] [address] [place] [address], [facility] [phone] * HEPATITIS C ANTIBODY (09/09/2019 12:42 PM PLUMBING DESIGNER) Hepatitis C Antibody Non-react robyn Non-reac tive 09/09/2019 1:46 PM PLUMBING DESIGNER [facility] Comment: Hepatitis C Antibody screen indicates no serologic evidence of past or current infection with Hepatitis C Virus. Patients with unexplained liver disease who are immunocompromised or suspected of having acute Hepatitis C infection may benefit from Nucleic Acid Test (MEL) for Hepatitis C Viral RNA to confirm Hepatitis C status. Blood BLOOD SPECIMEN / Unknown Venipuncture / Unknown 09/09/2019 12:42 PM PLUMBING DESIGNER 09/09/2019 12:51 PM PLUMBING DESIGNER us Tiffanie Seymour Patrick AIRLINE RESERVATION [facility] - CHEMISTRY ORDERAB LES Final Result Performing Organization Address [facility]/ZIP Co de Phone Number [facility] [address] [place] [address], [facility] [phone] * HIV-1 HIV-2 ANTIGEN/ANTIBODY (03/22/2019 3:00 PM CDT) HIV Antigen/Antibod y 1 & 2 Non-reacti ve Non-react robyn 03/22/2019 3:59 PM CDT [facility] Comment: Neither HIV-1 p24 Antigen nor HIV-1/HIV-2 Antibodies are detected. Blood BLOOD SPECIMEN / Unknown Venipuncture / Unknown 03/22/2019 3:00 PM CDT 03/22/2019 3:11 PM CDT Tiffanie Nguyen AIRLINE RESERVATION AGENT-ENGINEERING SECRETARY LAB - HEMATOLOGY ORDERA BLES Final Result [address] [phone] from Last 3 Months or Most Recently Relevant to Health Maintenance Insurance [employer] MEDICARE AD[place] [address] [employer] Advance Directives Documents on File Type Date Recorded Patient Sales Agent Protective Service Expl anation Adv Directive/Living Will/POA 10/27/2019 2:34 [...] 6:25 PM 08/19/2019 4:51 PM Care Teams Flatbed Press Operator Relationship Specialty Start Date End Date Ran Nuñez MD [address] [place] [address] PCP - General Family Medicine 08/30/21 Hillary Apple MD [address] [place] [address] Hematology and Oncology 03/17/19 Tony Dumont MD [facility] [place] [address] Hematology and Oncology 03/17/19 Maryjo Reinoso, SUPERVISOR LEAF SPRING REPAIR Side Panel Padder 03/17/19 Madyson Clay, PharmD 03/17/19 Dana Lala, AIRLINE RESERVATION AGENT-SUPERINTENDENT MAINTENANCE AIRPORTS [facility] [place] [address] Oncology 03/17/19 Tiffanie Nguyen, AIRLINE RESERVATION AGENT-ENGINEERING SECRETARY [address] [place] [address] Family Medicine 03/17/19 Cesar Tavares MD [address] [place] [address] Referring Physician Medical Oncology 03/23/19 Joy Bob 09/22/19 Tony Dumont MD [address] [place] [address] Hematology and Oncology 10/30/21 Shalini Segal MD [address] [facility] [place] [address] Spaghetti Press Helper/Oncologist Hematology and Oncology 10/30/21 Stefanie Burns, ROSEMARY Registered Nurse 10/30/21 Fatemeh Bolaños, RN Registered Nurse 10/30/21 Chandana Lu MD [address] [place] [address] Orthopedic Surgery 03/30/24
[2024-12-13 20:36] LABS: Rubella IgG Antibody > 110.0 IU/ML
[2024-12-14 16:22] LABS: Mumps Virus IgG Antibody <9.00 AU/mL; Rubeola Measles IgG >300.00 AU/mL
== END 2024-12-13 09:40 | disposition home or self-care (01) ==
LOC: ANHGOSHLAB 09:41
PROVIDERS: PCP Family Medicine; Visit Provider Nurse Practitioner Family
DX: C83.32 Diffuse large B-cell lymphoma, intrathoracic lymph nodes (principal); Z90.81 Acquired absence of spleen
CPT/HCPCS: 36415; 86735; 86762; 86765

== ENCOUNTER 2025-04-21 14:07 | Outpatient (CLI) | payer MEDICARE, SELFPAY ==
--- OUTSIDE RECORDS SUMMARY | 2025-04-21 14:10 | XMS_ITS | Encounter Summary ---
Author Organization [facility] [employer] Address [address] [place] [address] Care Team Providers Care Smearer Name Role Phone Ran Nuñez MD Primary Care Provider Encounter Details Date Type Department Care Team ([facility] Contact Info) Description 12/19/2022 Abstract [facility] Oncology and Hematology [facility] [address] [place] [address] Chuck Aguilera, ROSEMARY Social History [...] Upcoming Encounters Date Type Department Care Team ([facility] Contact Info) Description 04/21/2025 2:30 PM CDT Office Visit [facility] Oncology and Hematology [facility] [address] [place] [address] Cesar Tavares MD [address] [facility] [address] [place] [address] documented as of this encounter Visit Diagnoses Not on filedocumented in this encounter Care Teams Smearer Relationship Specialty Start Date End Date Ran Nuñez MD [address] [place] [address] PCP - General Family Practice 08/15/17 documented as of this encounter
--- OUTSIDE RECORDS SUMMARY | 2025-04-21 14:10 | XMS_ITS | Encounter Summary ---
Author Organization [facility] Address [address] [place] [address] Care Team Providers Care Certified Nurse Midwife Name Role Phone Hillary Apple MD Unavailable [phone] Tony Dumont MD Unavailable [phone] Maryjo ReinosoW Unavailable Unavailab Madyson Nicolas PharmD Unavailable Unavaila Dana Galicia POWER PROJECT MANAGER-STOCKROOM ASSOCIATE Unavailable + [phone] Tiffanie Nguyen POWER PROJECT MANAGER-INTELLIGENCE OPERATIONS Unavailable [phone] Cesar Tavares MD Unavailable [phone] Joy Bob Unavailable Fanta Ran Augustine MD Primary Care Provider Tony Dumont MD Unavailable [phone] Shalini Segal MD Unavailable [phone] Stefanie Burns RN Unavailable Unavaila Fatemeh Kelly RN Unavailable Unavailable Glenn Hernandez MD Unavailable [phone] Chandana Lu MD Unavailable [phone] Reason for Visit * Reason Onset Date Comments MEDICATION REFILL 04/24/2023 Encounter Details Date Type Department Care Team (Late st Contact Info) Description 04/24/2023 Refill [facility] [address] [place] [address] Hillary Apple MD [address] [facility] [place] [address] MEDICATION REFILL Social History Tobacco Use Types [...] AM CDT Legal 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 MEDICAL EXAMINER Gender Identity Male 03/27/2022 11:34 AM CDT [...] on filedocumented in this encounter Care Teams Certified Nurse Midwife Relationship Specialty Start Date End Date Ran Nuñez MD [address] [place] [address] PCP - General Family Medicine 08/30/21 [place] [address] [facility] [place] [address] PCP - [facility] 03/04/23 08/21/23 Hillary Apple MD [address] [place] [address] Hematology and Oncology 03/17/19 Tony Dumont MD [facility] [place] [address] Hematology and Oncology 03/17/19 Maryjo Reinoso, [facility] Plastics Technician 03/17/19 Madyson Clay, PharmD 03/17/19 Dana Lala, POWER PROJECT MANAGER-STOCKROOM ASSOCIATE [address] [facility] 2[place] [address] Oncology 03/17/19 Tiffanie Nguyen, POWER PROJECT MANAGER-INTELLIGENCE OPERATIONS [address] [facility] 2nd [place] [address] Family Medicine 03/17/19 Cesar Tavares MD [address] [place], [place] [address]TA [facility] 2nd [place] [address] Referring Physician Medical Oncology 03/23/19 Joy Bob 09/22/19 Tony Dumont MD [address] [place] [phone] Hematology and Oncology 10/30/21 Shalini Segal MD [address] [place] [address] OF HEMATOLOGY & [place] [address] Watch Case Polisher/Oncologist Hematology and Oncology 10/30/21 Stefanie Burns, RN Registered Nurse 10/30/21 Fatemeh Bolaños RN Registered Nurse 10/30/21 Chandana Lu MD [address] [place] [address] Orthopedic Surgery 03/30/24 documented as of this encounter
--- OUTSIDE RECORDS SUMMARY | 2025-04-21 14:10 | XMS_ITS | Encounter Summary ---
Author Organization [facility] Address [address] [facility] [place] [address] Care Team Providers Care Hog Counter Name Role Phone Hillary Apple MD Unavailable [phone] Tony Dumont MD Unavailable [phone] Maryjo ReinosoW Unavailable Unavailab Madyson Nicolas PharmD Unavailable Unavaila Dana Galicia BI ARCHITECT-WOUND CARE CENTER CONSULTANT Unavailable + [phone] Tiffanie Nguyen BI ARCHITECT-DIALS SUPERVISOR Unavailable [phone] Cesar Tavares MD Unavailable [phone] Joy Bob Unavailable Fanta Ran Augustine MD Primary Care Provider Tony Dumont MD Unavailable [phone] Shalini Segal MD Unavailable [phone] Stefanie Burns RN Unavailable Unavaila Fatemeh Kelly RN Unavailable Unavailable Glenn Hernandez MD Unavailable [phone] Chandana Lu MD Unavailable [phone] Reason for Visit * Reason Onset Date Comments MEDICATION REFILL 08/13/2023 Encounter Details Date Type Department Care Team (Late st Contact Info) Description 08/13/2023 Refill [facility] [address] [place] [address] Tiffanie Nguyen, BI ARCHITECT-DIALS SUPERVISOR [address] [place] [address] MEDICATION REFILL Social History Tobacco Use Types [...] AM CDT 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 [place] [address] Hematology and Oncology 03/17/[address] [facility] [place] [address] Hematology and Oncology 03/17/19 Maryjo Reinoso, [facility] Product Steward 03/17/19 Madyson Clay, PharmD 03/17/19 Dana Lala, BI ARCHITECT-WOUND CARE CENTER CONSULTANT [address] [facility] 2nd [place] [address] Oncology 03/17/19 Tiffanie Nguyen, BI ARCHITECT-DIALS SUPERVISOR [address] [facility] 2nd [place] [address] Family Medicine 03/17/[address] [facility] 2nd [place] [address] Referring Physician Medical Oncology 03/23/19 Joy Bob 09/22/19 Tony Dumont MD [address] [place] [address] Hematology and Oncology 10/30/21 Shalini Segal MD [address] [facility] OF HEMATOLOGY [place] [address] Oil Field Worker/Oncologist Hematology and Oncology 10/30/21 Stefanie Burns, RN Registered Nurse 10/30/21 Fatemeh Bolaños RN Registered Nurse 10/30/21 Chandana Lu MD [address] [place] [address] Orthopedic Surgery 03/30/24 documented as of this encounter
--- OUTSIDE RECORDS SUMMARY | 2025-04-21 14:10 | XMS_ITS | Encounter Summary ---
Author Organization [facility] Address [address] [facility] [place] [address] Care Team Providers Care Primary School Teacher Name Role Phone Hillary Apple MD Unavailable [phone] Bill Ferrera MD Unavailable [phone] Tony Dumont MD Unavailable [phone] Maryjo Reinoso LCSW Unavailable Unavailab Madyson Nicolas PharmD Unavailable Unavaila Dana Galicia PATIENT ACCOUNTS SPECIALIST-GARMENT SEWING MACHINE OPERATOR Unavailable + [phone] Tiffanie Nguyen PATIENT ACCOUNTS SPECIALIST-SENIOR POLICY ANALYST Unavailable [phone] Stephanie Mahoney RN Unavailable Unavailable Alycia Galvan RN Unavailable UnavailRan Mejía MD Primary Care Provider Cesar Tavares MD Unavailable [phone] Karie Jones RN Unavailable Unavailable Joy Bob Unavailable Fanta Addison Weinstein PharmD Unavailable Unavailab Alida Chang PATIENT ACCOUNTS SPECIALIST-SENIOR POLICY ANALYST Primary Care Provider Ran Nuñez MD Primary Care Provider Tony Dumont MD Unavailable [phone] Shalini Segal MD Unavailable [phone] Stefanie Burns RN Unavailable Unavaila Fatemeh Kelly RN Unavailable Unavailable Glenn Hernandez MD Unavailable Chandana Lu MD Unavailable Reason for Visit * Reason Onset Date Comments MEDICATION REFILL 10/02/2020 Encounter Details Date Type Department Care Team (Late st Contact Info) Description 10/02/2020 Refill [facility] [address] [place] [address] Hillary Apple MD [address] [facility] [place] [address] MEDICATION REFILL Social History Tobacco Use Types [...] AM CDT 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 No / Unsure 09/28/2020 1:10 PM MANAGER SPEECH documented as of this encounter Functional Status [...] Time COVID-19 Confirmed 09/28/2020 09/28/2020 4:33 AM MANAGER SPEECH COVID-19 Under Investigation 11/16/2020 11/16/2020 11/16/2020 6:52 PM CDT COVID-19 Confirmed 11/16/2020 11/16/2020 4:35 AM CDT COVID-19 Under Investigation 12/20/2020 12/20/2020 12/20/2020 6:23 PM CDT COVID-19 Under Investigation 04/21/2021 04/21/2021 2021 6:42 AM CDT documented as of this encounter Care Teams Primary School Teacher Relationship Specialty Start Date End Date Ran Nuñez MD [address] [place] [address] PCP - General Family Medicine 03/22/19 12/22/20 Alida Marshall APRN-SENIOR POLICY ANALYST [address] [facility] OF [facility] [place] [address] PCP - General Family Medicine 12/23/20 08/29/21 Ran Nuñez MD [address] [place] [address] PCP - General Family Medicine 08/30/21 [place] [address] [place] [address] PCP - Attributed-[facility] 03/04/23 08/21/23 Hillary Apple MD [address] [place] [address] Hematology and Oncology 03/17/19 Bill Ferrera MD [address] [place] [address] Hematology and Oncology 03/17/19 08/27/21 Tony Dumont MD [address] [place] [address] Hematology and Oncology 03/17/19 Maryjo Reinoso, [facility] Yoghurt Maker 03/17/19 Madyson Clay, PharmD 03/17/19 Dana Laal, PATIENT ACCOUNTS SPECIALIST-GARMENT SEWING MACHINE OPERATOR [address] [place] [address] 2[place] [address] Oncology 03/17/19 Tiffanie Nguyen, PATIENT ACCOUNTS SPECIALIST-SENIOR POLICY ANALYST [address] [place] [address] 2[place] [address] Family Medicine 03/17/19 Stephanie Mahoney, RN Registered Nurse 03/17/19 10/29/21 Alycia Galvan, ROSEMARY 03/17/19 10/29/21 Cesar Tavares MD [place] [address] Referring Physician Medical Oncology 03/23/19 Karie Jones, RN Registered Nurse 06/08/19 10/29/21 Joy Bob 09/22/19 Addison Shea, PharmD Pharmacist 09/22/19 10/29/21 Tony Dumont MD [address] [place] [address] Hematology and Oncology 10/30/21 Shalini Segal MD [address] [facility] OF [facility] [place] [address] Special Delivery Clerk/Oncologis t Hematology and Oncology 10/30/21 Stefanie Burns, RN Registered Nurse 10/30/21 Fatemeh Bolaños, RN Registered Nurse 10/30/21 Chandana Lu MD [address] [place] [address] Orthopedic Surgery 03/30/24 documented as of this encounter
--- OUTSIDE RECORDS SUMMARY | 2025-04-21 14:10 | XMS_ITS | Encounter Summary ---
Author Organization [facility] Address [address] [facility] [place] [address] Care Team Providers Care Instructional Manager Name Role Phone Hillary Apple MD Unavailable [phone] Bill Ferrera MD Unavailable [phone] Tony Dumont MD Unavailable [phone] Maryjo Reinoso LCSW Unavailable Unavailab Madyson iNcolas PharmD Unavailable Unavaila Dana Galicia EXPERIMENTAL BOX TESTER-LABEL PASTER Unavailable + [phone] Tiffanie Nguyen EXPERIMENTAL BOX TESTER-COLOR CONTROL OPERATOR Unavailable [phone] Stephanie Mahoney RN Unavailable Unavailable Alycia Galvan RN Unavailable UnavailRan Mejía MD Primary Care Provider Cesar Tavares MD Unavailable [phone] Karie Jones RN Unavailable Unavailable Joy Bob Unavailable Fanta Addison Weinstein PharmD Unavailable Unavailab Alida Chang EXPERIMENTAL BOX TESTER-COLOR CONTROL OPERATOR Primary Care Provider Ran Nuñez MD Primary Care Provider Tony Dumont MD Unavailable [phone] Shalini Segal MD Unavailable [phone] Stefanie Burns RN Unavailable Unavaila Fatemeh Kelly RN Unavailable Unavailable Glenn Hernandez MD Unavailable Chandana Lu MD Unavailable Reason for Visit * Reason Onset Date Comments MEDICATION REFILL 10/01/2020 Encounter Details Date Type Department Care Team (Late st Contact Info) Description 10/01/2020 Refill [facility] [address] [place] [address] Hillary Apple MD [address] [facility] OF [facility] [place] [address] MEDICATION REFILL Social History Tobacco Use Types [...] AM CDT 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 No / Unsure 09/28/2020 1:10 PM TABLE RUNNER documented as of this encounter Functional Status [...] Time COVID-19 Confirmed 09/28/2020 09/28/2020 4:33 AM TABLE RUNNER COVID-19 Under Investigation 11/16/2020 11/16/2020 11/16/2020 6:52 PM CDT COVID-19 Confirmed 11/16/2020 11/16/2020 4:35 AM CDT COVID-19 Under Investigation 12/20/2020 12/20/2020 12/20/2020 6:23 PM CDT COVID-19 Under Investigation 04/21/2021 04/21/2021 2021 6:42 AM CDT documented as of this encounter Care Teams Instructional Manager Relationship Specialty Start Date End Date Ran Nuñez MD [address] [place] [address] PCP - General Family Medicine 03/22/19 12/22/20 Alida Marshall APRN-COLOR CONTROL OPERATOR [address] [facility] & [place] [address] PCP - General Family Medicine 12/23/20 08/29/21 Ran Nuñez MD [address] [place] [address] PCP - General Family Medicine 08/30/21 [place] [address] [place] [address] PCP - Attributed-[facility] 03/04/23 08/21/23 Hillary Apple MD [address] [place] [address] Hematology and Oncology 03/17/19 Bill Ferrera MD [address] [place] [address] Hematology and Oncology 03/17/19 08/27/21 Tony Dumont MD [address] [place] [address] Hematology and Oncology 03/17/19 Maryjo Reinoso, [facility] Projector Booth Operator 03/17/19 Madyson Clay, PharmD 03/17/19 Dana Lala, EXPERIMENTAL BOX TESTER-LABEL PASTER [address] [place] [address] 2nd [place] [address] Oncology 03/17/19 Tiffanie Nguyen, EXPERIMENTAL BOX TESTER-COLOR CONTROL OPERATOR [address] [place] [address] 2nd [place] [address] Family Medicine 03/17/19 Stephanie Mahoney, RN Registered Nurse 03/17/19 10/29/21 Alycia Galvan, ROSEMARY 03/17/19 10/29/21 Cesar Tavares MD [address] [place] [address] Referring Physician Medical Oncology 03/23/19 Karie Jones, RN Registered Nurse 06/08/19 10/29/21 Joy Bob 09/22/19 Addison Shea, PharmD Pharmacist 09/22/19 10/29/21 Tony Dumont MD [address] [place] [address] Hematology and Oncology 10/30/21 Shalini Segal MD [address] [facility] OF [facility] [place] [address] Home Health Nurse/Oncologis t Hematology and Oncology 10/30/21 Stefanie Burns, RN Registered Nurse 10/30/21 Fatemeh Bolaños, RN Registered Nurse 10/30/21 Chandana Lu MD [address] [place] [address] Orthopedic Surgery 03/30/24 documented as of this encounter
--- OUTSIDE RECORDS SUMMARY | 2025-04-21 14:10 | XMS_ITS | Encounter Summary ---
Author Organization [facility] Address [address] [place] [address] Care Team Providers Care Bricklayer Sewer Name Role Phone Hillary Apple MD Unavailable [phone] Tony Dumont MD Unavailable [phone] Maryjo ReinosoW Unavailable Unavailab Madyson Nicolas PharmD Unavailable Unavaila Dana Galicia FIELD ADMINISTRATIVE ASSISTANT-REPRODUCTION PRODUCTION MANAGER Unavailable + [phone] Tiffanie Nguyen FIELD ADMINISTRATIVE ASSISTANT-SOFTWARE SUPPORT TECHNICIAN Unavailable [phone] Cesar Tavares MD Unavailable [phone] Joy Bob Unavailable Fanta Ran Augustine MD Primary Care Provider Tony Dumont MD Unavailable [phone] Shalini Segal MD Unavailable [phone] Stefanie Burns RN Unavailable Unavaila Fatemeh Kelly RN Unavailable Unavailable Glenn Hernandez MD Unavailable [phone] Chandana Lu MD Unavailable [phone] Reason for Visit * Reason Onset Date Comments MEDICATION REFILL 04/24/2023 Encounter Details Date Type Department Care Team (Late st Contact Info) Description 04/24/2023 Refill [facility] [address] [place] [address] Tiffanie Nguyen, FIELD ADMINISTRATIVE ASSISTANT-SOFTWARE SUPPORT TECHNICIAN [address] [place] [address] MEDICATION REFILL Social History Tobacco Use Types [...] AM CDT 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 Gender Identity Male 03/27/2022 11:34 AM CDT [...] (RLS) documented in this encounter Care Teams Bricklayer Sewer Relationship Specialty Start Date End Date Ran Nuñez MD [address] [place] [address] PCP - General Family Medicine 08/30/21 [place] [address] [place] [address] PCP - [facility] 03/04/23 08/21/23 Hillary Apple MD [facility] [place] [address] Hematology and Oncology 03/17/19 Tony Dumont MD [facility] [place] [address] Hematology and Oncology 03/17/19 Maryjo Reinoso, [facility] Anime Artist 03/17/19 Madyson Clay, PharmD 03/17/19 Dana Lala, FIELD ADMINISTRATIVE ASSISTANT-REPRODUCTION PRODUCTION MANAGER [address] [facility] [address] [address] Oncology 03/17/19 Tiffanie Nguyen, FIELD ADMINISTRATIVE ASSISTANT-SOFTWARE SUPPORT TECHNICIAN [facility] [address] [address] Family Medicine 03/17/19 Cesar Tavares MD [facility] 2[place] [address] Referring Physician Medical Oncology 03/23/19 Joy Bob 09/22/19 Tony Dumont MD [address] [place] [address] Hematology and Oncology 10/30/21 Shalini Segal MD [address] [place] [address] OF HEMATOLOGY & [place] [address] Senior Cognos Developer/Oncologist Hematology and Oncology 10/30/21 Stefanie Burns, RN Registered Nurse 10/30/21 Fatemeh Bolaños RN Registered Nurse 10/30/21 Chandana Lu MD [address] [place] [address] Orthopedic Surgery 03/30/24 documented as of this encounter
--- OUTSIDE RECORDS SUMMARY | 2025-04-21 14:10 | XMS_ITS | Encounter Summary ---
Author Organization [facility] Address [address] [place] [address] Care Team Providers Care Servicer Name Role Phone Hillary Apple MD Unavailable [phone] Tony Dumont MD Unavailable [phone] Maryjo ReinosoW Unavailable Unavailab Madyson Nicolas PharmD Unavailable Unavaila Dana Galicia SUBSTATION WIREMAN-FREIGHT CLAIM INVESTIGATOR Unavailable + [phone] Tiffanie Nguyen SUBSTATION WIREMAN-ENVIRONMENTAL SERVICE AIDE Unavailable [phone] Cesar Tavares MD Unavailable [phone] Joy Bob Unavailable Fanta Ran Augustine MD Primary Care Provider Tony Dumont MD Unavailable [phone] Shalini Segal MD Unavailable [phone] Stefanie Burns RN Unavailable Unavaila Fatemeh Kelly RN Unavailable Unavailable Glenn Hernandez MD Unavailable [phone] Chandana Lu MD Unavailable [phone] Reason for Visit * Reason Onset Date Comments MEDICATION REFILL 08/13/2023 Encounter Details Date Type Department Care Team (Late st Contact Info) Description 08/13/2023 Refill [facility] [address] [place] [address] Hillary Apple MD [address] [facility] OF HEMATOLOGY & [place] [address] MEDICATION REFILL Social History Tobacco Use Types [...] AM CDT 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 [place] [address] PCP - [facility] 03/04/23 08/21/23 Hillary Apple MD [address] [place] [address] Hematology and Oncology 03/17/19 Tony Dumont MD [facility] [place] [address] Hematology and Oncology 03/17/19 Maryjo Reinoso, [facility] Data Control Assistant 03/17/19 Madyson Clay, PharmD 03/17/19 Dana Lala, SUBSTATION WIREMAN-FREIGHT CLAIM INVESTIGATOR [address] [facility] [place] [address] Oncology 03/17/19 Tiffanie Nguyen, SUBSTATION WIREMAN-ENVIRONMENTAL SERVICE AIDE [address] [facility]nd [place] [address] Family Medicine 03/17/19 Cesar Tavares MD [address] [place], [place] [address]TA [facility] 2nd [place] [address] Referring Physician Medical Oncology 03/23/19 Joy Bob 09/22/19 Tony Dumont MD [address] [place] [phone] Hematology and Oncology 10/30/21 Shalini Segal MD [address] [place] [address] OF HEMATOLOGY & [place] [address] Quality Systems Engineer/Oncologist Hematology and Oncology 10/30/21 Stefanie Burns, RN Registered Nurse 10/30/21 Fatemeh Bolaños RN Registered Nurse 10/30/21 Chandana Lu MD [address] [place] [address] Orthopedic Surgery 03/30/24 documented as of this encounter
--- OUTSIDE RECORDS SUMMARY | 2025-04-21 14:10 | XMS_ITS | Encounter Summary ---
Author Organization [facility] Address [address] [place] [address] Care Team Providers Care Security Systems Specialist Name Role Phone Hillary Apple MD Unavailable [phone] Bill Ferrera MD Unavailable [phone] Tony Dumont MD Unavailable [phone] Shalini Segal MD Unavailable [phone] Karie Jones RN Unavailable Unavailable Maryjo Reinoso LCSW Unavailable Unavailab Madyson Nicolas PharmD Unavailable Unavaila Dana Galicia ENGINEERING RECRUITER-SOURCING CONSULTANT Unavailable + [phone] Tiffanie Nguyen ENGINEERING RECRUITER-AUTO BODY BUILDER APPRENTICE Unavailable [phone] Stephanie Mahoney RN Unavailable Unavailable Alycia Galvan RN Unavailable UnavailRan Mejía MD Primary Care Provider Cesar Tavares MD Unavailable [phone] Karie Jones RN Unavailable Unavailable Joy Bob Unavailable Fanta Addison Weinstein PharmD Unavailable Unavailab Alida Chang ENGINEERING RECRUITER-AUTO BODY BUILDER APPRENTICE Primary Care Provider Ran Nuñez MD Primary Care Provider Tony Dumont MD Unavailable [phone] Shalini Segal MD Unavailable [phone] Stefanie Burns RN Unavailable Unavaila Fatemeh Kelly RN Unavailable Unavailable Glenn Hernandez MD Unavailable [phone] Chandana Lu MD Unavailable Reason for Visit * Reason Comments Insurance Issue/question termination of insurance Encounter Details Date Type Department Care Team (Late st Contact Info) Description 09/20/2019 Telephone [facility] [address] [place] [address] Joy Bob Insurance Issue/question (termination of insurance) [...] AM CDT Legal 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 FILLING AND PACKING SUPERVISOR Gender Identity Male 03/27/2022 11:34 AM CDT [...] Entry Date Author No 08/19/2019 10:04 AM FILLING AND PACKING SUPERVISOR Tiara Nguyen RN documented in this encounter Miscellaneous Notes * Telephone Encounter - Joy Bob - 09/20/2019 12:18 PM FILLING AND PACKING SUPERVISOR Called and spoke with Mr. Guillen and discussed the termination of his insurance and find out if he has obtained a different insurance plan. Mr. Guillen stated he was not aware that his plan changed and was recently told. 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 He stated [employer] will be the coverage for his vermin exterminator disability insurance, but they are waiting on a letter from the Human Resource Department. I asked Mr. Guillen if he spoke with or received any information from the HR Department about COBRA,he stated no. I asked and was giving the HR Department contact number [phone]. I informed Mr. Guillen that he will [...] and Anastasia Nice notified in inactive coverage. ING AND PACKING SUPERVISOR documented in this encounter Plan of [...] COVID-19 Confirmed 03/06/2020 07/14/2020 0 4:33 AM FILLING AND PACKING SUPERVISOR COVID-19 Under Investigation 03/07/2020 03/07/2020 03/09/2020 8:54 AM CDT COVID-19 Under Investigation 03/29/2020 03/29/2020 03/30/2020 9:42 AM CDT COVID-19 Confirmed 08/31/2020 08/31/2020 4:34 AM FILLING AND PACKING SUPERVISOR COVID-19 Confirmed 09/28/2020 09/28/2020 4:33 AM FILLING AND PACKING SUPERVISOR COVID-19 Under Investigation 11/16/2020 11/16/2020 11/16/2020 6:52 PM CDT COVID-19 Confirmed 11/16/2020 11/16/2020 4:35 AM CDT COVID-19 Under Investigation 12/20/2020 12/20/2020 12/20/2020 6:23 PM CDT COVID-19 Under Investigation 04/21/2021 04/21/2021 2021 6:42 AM CDT documented as of this encounter Care Teams Security Systems Specialist Relationship Specialty Start Date End Date Ran Nuñez MD [address] [place] [address] PCP - General Family Medicine 03/22/19 12/22/20 Alida Marshall APRN-AUTO BODY BUILDER APPRENTICE [address] [facility] OF HEMATOLOGY & [place] [address] PCP - General Family Medicine 12/23/20 08/29/21 Ran Nuñez MD [address] [place] [address] PCP - General Family Medicine 08/30/21 [place] [address] [facility] [place] [address] PCP - Attributed-Stefany MANRIQUEZ 03/04/23 08/21/23 Hillary Apple MD [address] [place] [address] Hematology and Oncology 03/17/19 Bill Ferrera MD [address] [place] [address] Hematology and Oncology 03/17/19 08/27/21 Tony Dumont MD [address] [place] [address] Hematology and Oncology 03/17/19 Shalini Segal MD [address] [place] [address] Hematology and Oncology 03/17/19 09/29/19 Karie Jones, RN Registered Nurse 03/17/19 09/21/19 Maryjo Reinoso, GREENHOUSE TECHNICIAN Assistant Administrator 03/17/19 Madyson Clay, PharmD 03/17/19 Dana Lala, ENGINEERING RECRUITER-SOURCING CONSULTANT [address] [place] [address] [address] [place] [address] Oncology 03/17/19 Tiffanie Nguyen, ENGINEERING RECRUITER-AUTO BODY BUILDER APPRENTICE [address] [place] [address] [address] [place] [address] Family Medicine 03/17/19 Stephanie Mahoney RN Registered Nurse 03/17/19 10/29/21 Alycia Galvan, ROSEMARY 03/17/19 10/29/21 Csear Tavares MD [address] [place] [address] [place] [address] Referring Physician Medical Oncology 03/23/19 Karie Jones, RN Registered Nurse 06/08/19 10/29/21 Joy Bob 09/22/19 Addison Shea, EusebioD Pharmacist 09/22/19 10/29/21 Tony Dumont MD [address] [place] [address] Hematology and Oncology 10/30/21 Shalini Segal MD [address] [facility] OF HEMATOLOGY & [place] [address] Warp Spinner/Oncologis t Hematology and Oncology 10/30/21 Stefanie Burns, RN Registered Nurse 10/30/21 Fatemeh Bolaños RN Registered Nurse 10/30/21 Chandana Lu MD [address] [place] [address] Orthopedic Surgery 03/30/24 documented as of this encounter
--- OUTSIDE RECORDS SUMMARY | 2025-04-21 14:10 | XMS_ITS | Encounter Summary ---
Author Organization [facility] Address [address] [facility] [place] [address] Care Team Providers Care Photographic Editor Name Role Phone Hillary Apple MD Unavailable [phone] Bill Ferrera MD Unavailable [phone] Tony Dumont MD Unavailable [phone] Shalini Segal MD Unavailable [phone] Karie Jones RN Unavailable Unavailable Maryjo Reinoso LCSW Unavailable Unavailab Madyson Nicolas PharmD Unavailable Unavaila Dana Galicia CONTINUOUS LINTER DRIER OPERATOR-CAMP ASSISTANT Unavailable + [phone] Mckinley SilverC Unavailable Unavail able Patrick, Lara CONTINUOUS LINTER DRIER OPERATOR-ELECTRONIC IMAGER Unavailable [phone] Stephanie Mahoney RN Unavailable Unavailable Alycia Galvan RN Unavailable UnavailRan Mejía MD Primary Care Provider Cesar Tavares MD Unavailable [phone] Karie Jones RN Unavailable Unavailable Joy Bob Unavailable Fanta Addison Weinstein PharmD Unavailable Unavailab Alida Chang CONTINUOUS LINTER DRIER OPERATOR-ELECTRONIC IMAGER Primary Care Provider Ran Nuñez MD Primary Care Provider Tony Dumont MD Unavailable [phone] Shalini Segal MD Unavailable Stefanie Burns RN Unavailable Unavaila Fatemeh Kelly RN Unavailable Unavailable Glenn Hernandez MD Unavailable [phone] Chandana Lu MD Unavailable Encounter Details Date Type Department Care Team (Late st Contact Info) Description 03/24/2019 Lab Requisition [facility] Care Pathology Lab [address] [place] [address] Roseline Higgins MD [address] [place] [address] Social History Tobacco Use Types Packs/Day Years Used Date Smoking Tobacco: Never Assessed Sex and Gender Information Value Date Recorded Sex Assigned at Male 03/27/2022 11:34 AM CDT Legal 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 PRACTICE BILLING ASSOCIATE Gender Identity Male 03/27/2022 11:34 AM CDT [...] Report Bone Marrow Patholog y Report Case: [id number] Authorizing Provider: Roseline Higgins MD Collected: 03/23/2019 10:40 AM Ordering Location: [facility] Pathology Lab Received: 03/24/2019 [...] - See microscopic description. 03/25/2019 1:01 PM [facility] PATHOLOGY LAB at 1301 CDT AP Comment In summary, the bone marrow is [...] testing is required. KR 03/25/2019 1:01 PM [facility] PATHOLOGY LAB Peripheral Smear Description CBC Data: [...] decreased. Platelet morphology: normal. 03/25/2019 1:01 PM [facility] PATHOLOGY LAB Bone Marrow Aspirate Differential count [...] (by special stain): decreased. 03/25/2019 1:01 PM [facility] PATHOLOGY LAB Bone Marrow Core Biopsy and [...] the bone marrow core biopsy in the [facility] Department of Pathology. All controls are appropriately [...] and fungal organisms, respectively. 03/25/2019 1:01 PM [facility] PATHOLOGY LAB Flow Cytometry Summary Concurrent flow cytometry ([id number]) shows involvement by a CD5-negative, [id number] mature B-cell lymphoma. 03/25/2019 1:01 PM [facility] PATHOLOGY LAB Clinical History 48 year old man with a history of B-cell lymphoma, lymphadenopathy, and splenomegaly, status-post treatment. 03/25/2019 1:01 PM [facility] PATHOLOGY LAB Materials Received Received are 20 slides and 3 blocks labeled as [id number] along with the outside pathology report. [place] [address]. All materials are returned to the referring institution, along with a copy of our final report. 03/25/2019 1:01 PM [facility] PATHOLOGY LAB Disclaimer The performance characteristics of all immunohistochemical and indirect immunofluorescence stains (if any) cited in this report were determined by the Histopathology Laboratory of [facility]. Some of these tests were [...] this case is performed by [facility] Pathology at [facility], [address] [place] [address]. 03/25/2019 1:01 PM CDT [facility] PATHOLOGY LAB Embedded Images 03/25/2019 1:01 PM CDT [facility] PATHOLOGY LAB Pathology/Cytology SPECIMEN FROM BONE MARROW [...] LAB - PATHOLOGY/CYTOLOGY ORDERAB LES Final Result [facility] PATHOLOGY LAB [address] [place] [address], [facility] [phone] documented in this encounter Visit Diagnoses Not [...] COVID-19 Confirmed 03/06/2020 07/14/2020202 0 4:33 AM PRACTICE BILLING ASSOCIATE COVID-19 Under Investigation 03/07/2020 03/07/2020 03/09/2020 8:54 AM CDT COVID-19 Under Investigation 03/29/2020 03/29/2020 03/30/2020 9:42 AM CDT COVID-19 Confirmed 08/31/2020 08/31/2020 1 4:34 AM PRACTICE BILLING ASSOCIATE COVID-19 Confirmed 09/28/2020 09/28/2020 1 4:33 AM PRACTICE BILLING ASSOCIATE COVID-19 Under Investigation 11/16/2020 11/16/2020 11/16/2020 6:52 PM CDT COVID-19 Confirmed 11/16/2020 11/16/2020 4:35 AM CDT COVID-19 Under Investigation 12/20/2020 12/20/2020 12/20/2020 6:23 PM CDT COVID-19 Under Investigation 04/21/2021 04/21/2021 2021 6:42 AM CDT documented as of this encounter Care Teams Photographic Editor Relationship Specialty Start Date End Date Ran Nuñez MD [address] [place] [address] PCP - General Family Medicine 03/22/19 12/22/20 Alida Marshall APRN-ELECTRONIC IMAGER [address] [facility] OF HEMATOLOGY & [place] [address] PCP - General Family Medicine 12/23/20 08/29/21 Ran Nuñez MD [address] [place] [address] PCP - General Family Medicine 08/30/21 [place] [address] [place] [address] PCP - Attributed-Stefany CT 03/04/23 08/21/23 Hillary Apple MD [address] [place] [address] Hematology and Oncology 03/17/19 Bill Ferrera MD [address] [place] [address] Hematology and Oncology 03/17/19 08/27/21 Tony Dumont MD [address] [place] [address] Hematology and Oncology 03/17/19 Shalini Segal MD [address] [place] [address] Hematology and Oncology 03/17/19 09/29/19 Karie Jones, RN Registered Nurse 03/17/19 09/21/19 Maryjo Reinoso, SNACK STEWARD Quality Control Industrial Engineer 03/17/19 Madyson Clay, PharmD 03/17/19 Dana Lala CONTINUOUS LINTER DRIER OPERATOR-CAMP ASSISTANT [address] [place] [address] [address] [address] Oncology 03/17/19 Mckinley Silver PA-C [address] [place] [address] [address] [address] Physician Plant Engineer 03/17/19 09/08/19 Tiffanie Nguyen, CONTINUOUS LINTER DRIER OPERATOR-ELECTRONIC IMAGER [address] [place] [address] [address] [place] [address] Family Medicine 03/17/19 Stephanie Mahoney, RN Registered Nurse 03/17/19 10/29/21 Alycia Galvan, ROSEMARY 03/17/19 10/29/21 Cesar Tavares MD [address] [place] [address] Referring Physician Medical Oncology 03/23/19 Karie Jones, RN Registered Nurse 06/08/19 10/29/21 Joy Bob 09/22/19 Addison Shea, PharmD Pharmacist 09/22/19 10/29/21 Tony Dumont MD [address] [place] [address] Hematology and Oncology 10/30/21 Shalini Segal MD [address] [facility] OF HEMATOLOGY & [place] [address] Sodder/Oncologis t Hematology and Oncology 10/30/21 Stefanie Burns, RN Registered Nurse 10/30/21 Fatemeh Bolaños RN Registered Nurse 10/30/21 Chandana Lu MD [address] [place] [address] Orthopedic Surgery 03/30/24 documented as of this encounter
--- OUTSIDE RECORDS SUMMARY | 2025-04-21 14:10 | XMS_ITS | Clinical Summary ---
Author Organization [facility] Address [address] [facility] [address] [facility] [address] Care Team Providers Care Bonding Supervisor Name Role Phone Ran Nuñez MD Primary [...] 2 Active fluticasone propionate (FLONASE) 50 mcg/spray [place], Suspension nasal inhaler 2 SPRAYS IN EACH [...] Tablet 4 Active naloxone (NARCAN) 4 mg/spray [place], Non-Aerosol EMERGENCY USE ONLY: Administer 1 spray [...] Encounters Date Type Department Care Team Description 03/22/2025 External Device Data [facility] ABSTRACTION Provider, Abstract 02/16/2025 External Device Data [facility] ABSTRACTION Provider, Abstract 02/16/2025 External Device Data [facility] ABSTRACTION Provider, Abstract 02/16/2025 External Device Data [facility] ABSTRACTION Provider, Abstract 02/01/2025 External Device Data [facility] ABSTRACTION Provider, Abstract 01/25/2025 External Device Data [facility] ABSTRACTION Provider, Abstract [...] 9:25 AM CDT Height 171.5 cm (5' 7.5) 02/12/2022 1:19 PM CDT Body Mass Index 38.61 02/12/2022 1:19 PM CDT Plan of Treatment Upcoming Encounters Date Type Department Care Team (Late st Contact Info) Description 04/21/2025 2:30 PM CDT Office Visit [facility] Oncology and Hematology - [place] [address] [facility] [address] [place] [address] [place] [address] [place] [address] [address] [place] [address] Health Maintenance Due Date Last Done Comments Pre-Diabetes and Diabetes Screening 1970 COLORECTAL SCREENING 2015 Colorectal Cancer Screening 2015 FIT-DNA Q 3 years 2015 FIT/FOBT Q 1 year 2015 Flex Sig/CT Colonography Q 5 years 2015 INFLUENZA VACCINE (#1) 2025 05/22/2022, 2018 COVID-19 Vaccine (2024-2 6 season) 2025 05/22/2022, 12/20/2021, 08/30/2021, Additional history exists DTAP/TDAP/TD VACCINES (4 - Tdap) 02/15/2031 02/15/2021, 09/28/2020, 07/14/2020 Abdominal Aortic Aneurysm (A AA) Screening Completed 07/26/2019 ZOSTER VACCINE Completed 09/28/2020, 07/14/2020 HEPATITIS B VACCINES Completed 08/30/2021, 09/28/2020, 07/14/2020 Insurance [employer] PPO MCR Care Teams Bonding Supervisor Relationship Specialty Start Date End Date Ran Nuñez MD [address] [place] [address] PCP - General Family Practice 08/15/17
--- OUTSIDE RECORDS SUMMARY | 2025-04-21 14:10 | XMS_ITS | Encounter Summary ---
Author Organization [facility] Address [address] [place] [address] Care Team Providers Care Dental Lab Technician Name Role Phone Hillary Apple MD Unavailable [phone] Bill Ferrera MD Unavailable [phone] Tony Dumont MD Unavailable [phone] Shalini Segal MD Unavailable [phone] Karie Jones RN Unavailable Unavailable Maryjo Reinoso LCSW Unavailable Unavailab Madyson Nicolas PharmD Unavailable Unavaila Dana Galicia OSTEOLOGY TEACHER-MEAT GRINDER Unavailable [phone] Mckinley SilverC Unavailable Unavail able Patrick, Lara OSTEOLOGY TEACHER-COLOR PASTE MIXER Unavailable [phone] Stephanie Mahoney RN Unavailable Unavailable Alycia Galvan RN Unavailable UnavailRan Mejía MD Primary Care Provider Cesar Tavares MD Unavailable [phone] Karie Jones RN Unavailable Unavailable Joy Bob Unavailable Fanta Addison Weinstein PharmD Unavailable Unavailab Alida Chang OSTEOLOGY TEACHER-COLOR PASTE MIXER Primary Care Provider Ran Nuñez MD Primary Care Provider Tony Dumont MD Unavailable [phone] Shalini Segal MD Unavailable Stefanie Burns RN Unavailable Unavaila Fatemeh Kelly RN Unavailable Unavailable Glenn Hernandez MD Unavailable Chandana Lu MD Unavailable [phone] Encounter Details Date Type Department Care Team (Late st Contact Info) Description 03/23/2019 Lab Requisition [facility] Care Pathology Lab [address] [place] [address] Ulises Howell MD [address] [place], [place] [address] Non-Hodgkin lymphoma Social History Tobacco Use Types Packs/Day Years Used Date Smoking Tobacco: Never Assessed Sex and Gender Information Value Date Recorded Sex Assigned at Male 03/27/2022 11:34 AM CDT Legal 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 MARKER DELIVERY Gender Identity Male 03/27/2022 11:34 AM CDT [...] AM CDT) Case Report Flow Cytometry Case: [id number] Authorizing Provider: Ulises Howell MD Collected: 03/23/2019 10:40 AM Ordering Location: [facility] Care Pathology Lab Received: 03/23/2019 01:04 PM Pathologist: Alecia Neri MD Specimen: Bone Marrow 03/24/2019 11:14 AM CDT [facility] PATHOLOGY LAB Final Diagnosis Bone marrow, flow cytometric immunophenotypic analysis: - CD5-negative, FM34-[id number] mature B-cell lymphoma. - See interpretation. 03/24/2019 11:14 AM CDT [facility] PATHOLOGY LAB at 1114 CDT Flow Cytometry Interpretation The bone marrow specimen [...] the flow cytometry specimen is reviewed for manager quality compliance purposes. In summary, the bone marrow specimen shows evidence of involvement by a CD5-negative, [id number]-[id number] mature B-cell lymphoma. Correlation with additional clinical information, the concurrent bone marrow biopsy specimen, and relevant cytogenetic/molecu lar testing is required for further classification. KR 03/24/2019 11:14 AM [facility] PATHOLOGY LAB Flow Cytometry Results Differential Result Comment Flow Cell Count /uL 30,000 Total Viability % 95.0 Lymphocytes % 11 Dim CD45 Region % 3 Monocytes % 3 Granulocytes % 80 03/24/2019 11:14 AM [facility] Reason for test Non-Hodgkin lymphoma 202.80 03/24/2019 11:14 AM [facility] PATHOLOGY LAB Client Specimen ID # [id number] 03/24/2019 11:14 AM [facility] PATHOLOGY LAB Number of markers 13 were performed. A-1 Flow CD3 A-3 Flow CD10 A-5 Flow CD20 A-6 Flow CD23 A-11 Flow CD25 A-12 Flow CD103 A-13 Flow CD11c A-2 Flow CD5 A-4 Flow CD19 A-7 Flow CD34 A-8 Flow CD45 A-9 Edmondson+CD19+ A-10 Lambda+CD19+ 03/24/2019 11:14 AM [facility] PATHOLOGY LAB Disclaimer Test performed at [facility], [address] [place] [address], [id number]. *The established laboratory minimum viability is 70%. [...] LAB Embedded Images 9 11:14 AM CDT [facility] PATHOLOGY LAB Pathology/Cytolo gy BONE MARROW SPECIMEN / Unknown 03/23/2019 10:40 AM CDT 03/23/2019 1:04 PM CDT Ulises Howell MD LAB - PATHOLOGY/CYTOLOGY ORDER [place] Final Result Performing Organization Address City/State/[facility] Co de Phone Number [facility] PATHOLOGY LAB [address] [phone] documented in this encounter Visit Diagnoses Diagnosis [...] COVID-19 Confirmed 03/06/2020 07/14/2020 0 4:33 AM MARKER DELIVERY COVID-19 Under Investigation 03/07/2020 03/07/2020 03/09/2020 8:54 AM CDT COVID-19 Under Investigation 03/29/2020 03/29/2020 03/30/2020 9:42 AM CDT COVID-19 Confirmed 08/31/2020 08/31/2020 1 4:34 AM MARKER DELIVERY COVID-19 Confirmed 09/28/2020 09/28/2020 1 4:33 AM MARKER DELIVERY COVID-19 Under Investigation 11/16/2020 11/16/2020 11/16/2020 6:52 PM CDT COVID-19 Confirmed 11/16/2020 11/16/2020 1 4:35 AM CDT COVID-19 Under Investigation 12/20/2020 12/20/2020 12/20/2020 6:23 PM CDT COVID-19 Under Investigation 04/21/2021 04/21/2021 2021 6:42 AM CDT documented as of this encounter Care Teams Dental Lab Technician Relationship Specialty Start Date End Date Ran Nuñez MD [address] [place] [address] PCP - General Family Medicine 03/22/19 12/22/20 Alida Marshall APRN-COLOR PASTE MIXER [address] [place] [address] OF HEMATOLOGY & [place] [address] PCP - General Family Medicine 12/23/20 08/29/21 Ran Nuñez MD [address] [place] [address] PCP - General Family Medicine 08/30/21 [place] [address] [place] [address] PCP - [facility] 03/04/23 08/21/23 Hillary Apple MD [address] [place] [address] Hematology and Oncology 03/17/19 Bill Ferrera MD [address] [place] [address] Hematology and Oncology 03/17/19 08/27/21 Tony Dumont MD [address] [place] [address] Hematology and Oncology 03/17/19 Shalini Segal MD [facility] [place] [address] Hematology and Oncology 03/17/19 09/29/19 Karie Jones, RN Registered Nurse 03/17/19 09/21/19 Maryjo Reinoso, [facility] Cost Control Specialist 03/17/19 Madyson Clay, PharmD 03/17/19 Dana Lala, OSTEOLOGY TEACHER-MEAT GRINDER [address] [place] [address] [address] [place] [address] Oncology 03/17/19 Mckinley Silver PA-C [address] [place] [address] [place] [address] Physician Release Manager 03/17/19 09/08/19 Tiffanie Nguyen, OSTEOLOGY TEACHER-COLOR PASTE MIXER [address] [place] [address] [place] [address] Family Medicine 03/17/19 Stephanie Mahoney, RN Registered Nurse 03/17/19 10/29/21 Alycia Galvan, RN 03/17/19 10/29/21 Cesar Tavares MD [address] [place] [address] Referring Physician Medical Oncology 03/23/19 Karie Jones, RN Registered Nurse 06/08/19 10/29/21 Joy Bob 09/22/19 Addison Shea, PharmD Pharmacist 09/22/19 10/29/21 Tony Dumont MD [address] [place] [address] Hematology and Oncology 10/30/21 Shalini Segal MD [address] [facility] OF HEMAT[facility] & [place] [address] Senior Test Analyst/Oncologis t Hematology and Oncology 10/30/21 Stefanie Burns, RN Registered Nurse 10/30/21 Fatemeh Bolaños RN Registered Nurse 10/30/21 Chandana Lu MD [address] [place] [address] Orthopedic Surgery 03/30/24 documented as of this encounter
--- OUTSIDE RECORDS SUMMARY | 2025-04-21 14:10 | XMS_ITS | Encounter Summary ---
Author Organization [facility] Address [address] [facility] [place] [address] Care Team Providers Care Transit Operator Name Role Phone Hillary Apple MD Unavailable [phone] Bill Ferrera MD Unavailable [phone] Tony Dumont MD Unavailable [phone] Maryjo Reinoso LCSW Unavailable Unavailab Madyson Nicolas PharmD Unavailable Unavaila Dana Galicia FRENCH LECTURER-CONTRACT ENGINEER Unavailable + [phone] Tiffanie Nguyen FRENCH LECTURER-VP CORPORATE DEVELOPMENT Unavailable [phone] Stephanie Mahoney RN Unavailable Unavailable Alycia Galvan RN Unavailable UnavailRan Mejía MD Primary Care Provider Cesar Tavares MD Unavailable [phone] Karie Jones RN Unavailable Unavailable Joy Bob Unavailable Fanta Addison Weinstein PharmD Unavailable Unavailab Alida Chang FRENCH LECTURER-VP CORPORATE DEVELOPMENT Primary Care Provider Ran Nuñez MD Primary Care Provider Tony Dumont MD Unavailable [phone] Shalini Segal MD Unavailable [phone] Stefanie Burns RN Unavailable Unavaila Fatemeh Kelly RN Unavailable Unavailable Glenn Hernandez MD Unavailable Chandana Lu MD Unavailable Encounter Details Date Type Department Care Team (Late st Contact Info) Description 02/10/2020 Telephone [facility] [address] [place] [address] Stephanie Mahoney RN Social History Tobacco Use [...] AM CDT Legal 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 AIRCRAFT STRUCTURAL REPAIRER Gender Identity Male 03/27/2022 11:34 AM CDT [...] stool as of last night. Notified BMT STAFF RESPIRATORY THERAPIST Tiffanie and we are going to hold [...] COVID-19 Confirmed 03/06/2020 07/14/2020 0 4:33 AM AIRCRAFT STRUCTURAL REPAIRER COVID-19 Under Investigation 03/07/2020 03/07/2020 03/09/2020 8:54 AM CDT COVID-19 Under Investigation 03/29/2020 03/29/2020 03/30/2020 9:42 AM CDT COVID-19 Confirmed 08/31/2020 08/31/2020 1 4:34 AM AIRCRAFT STRUCTURAL REPAIRER COVID-19 Confirmed 09/28/2020 09/28/2020 1 4:33 AM AIRCRAFT STRUCTURAL REPAIRER COVID-19 Under Investigation 11/16/2020 11/16/2020 11/16/2020 6:52 PM CDT COVID-19 Confirmed 11/16/2020 11/16/2020 1 4:35 AM CDT COVID-19 Under Investigation 12/20/2020 12/20/2020 12/20/2020 6:23 PM CDT COVID-19 Under Investigation 04/21/2021 04/21/2021 2021 6:42 AM CDT documented as of this encounter Care Teams Transit Operator Relationship Specialty Start Date End Date Ran Nuñez MD [address] [place] [address] PCP - General Family Medicine 03/22/19 12/22/20 Alida Marshall APRN-VP CORPORATE DEVELOPMENT [address] [facility] [place] [address] PCP - General Family Medicine 12/23/20 08/29/21 Ran Nuñez MD [address] [place] [address] PCP - General Family Medicine 08/30/21 [place] [address] [place] [address] [facility] [place] 03/04/23 08/21/23 Hillary Apple MD [address] [place] [address] Hematology and Oncology 03/17/19 Bill Ferrera MD [address] [place] [address] Hematology and Oncology 03/17/19 08/27/21 Tony Dumont MD [address] [place] [address] Hematology and Oncology 03/17/19 Maryjo Reinoso, LEGAL OPERATIONS MANAGER Financial Aid Advisor 03/17/19 Madyson Clay, PharmD 03/17/19 Dana Lala, FRENCH LECTURER-CONTRACT ENGINEER [address] [facility] 2[place] [address] Oncology 03/17/19 Tiffanie Nguyen, FRENCH LECTURER-VP CORPORATE DEVELOPMENT [address] [facility] 2[address] [place] [address] Family Medicine 03/17/19 Stephanie Mahoney, RN Registered Nurse 03/17/19 10/29/21 Alycia Galvan, RN 03/17/19 10/29/21 Cesar T[place] [address] Referring Physician Medical Oncology 03/23/19 aKrie Joens, RN Registered Nurse 06/08/19 10/29/21 Joy Bob 09/22/19 Addison Shea, PharmD Pharmacist 09/22/19 10/29/21 Tony Dumont MD [address] [place] [address] Hematology and Oncology 10/30/21 Shalini Segal MD [address] [facility] [place] [address] Field Education Director/Oncologis t Hematology and Oncology 10/30/21 Stefanie Burns, RN Registered Nurse 10/30/21 Fatemeh Bolaños, RN Registered Nurse 10/30/21 Chandana Lu MD [address] [place] [address] Orthopedic Surgery 03/30/24 documented as of this encounter
--- OUTSIDE RECORDS SUMMARY | 2025-04-21 14:10 | XMS_ITS | Encounter Summary ---
Author Organization [facility] Address [address] [facility] [place] [address] Care Team Providers Care Maple Products Supervisor Name Role Phone Hillary Apple MD Unavailable [phone] Tony Dumont MD Unavailable [phone] Maryjo ReinosoW Unavailable Unavailab Madyson Nicolas PharmD Unavailable Unavaila Dana Galicia GRADES 7 AND 8 TEACHER-CORE STICKER Unavailable + [phone] Tiffanie Nguyen GRADES 7 AND 8 TEACHER-MEDICAL SERVICE TECHNICIAN Unavailable [phone] Cesar Tavares MD Unavailable [phone] Joy Bob Unavailable Fanta Ran Augustine MD Primary Care Provider Tony Dumont MD Unavailable [phone] Shalini Segal MD Unavailable [phone] Stefanie Burns RN Unavailable Unavaila Fatemeh Kelly RN Unavailable Unavailable Glenn Hernandez MD Unavailable [phone] Chandana Lu MD Unavailable [phone] Reason for Visit * Reason Onset Date Comments MEDICATION REFILL 12/24/2021 Encounter Details Date Type Department Care Team (Late st Contact Info) Description 12/24/[address] [facility] [address] [place] [address] Tiffanie Nguyen, GRADES 7 AND 8 TEACHER-MEDICAL SERVICE TECHNICIAN [address] [place] [address] MEDICATION REFILL Social History Tobacco Use Types [...] AM CDT Legal 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 SPEECH LANGUAGE ASSISTANT Gender Identity Male 03/27/2022 11:34 AM CDT [...] (RLS) documented in this encounter Care Teams Maple Products Supervisor Relationship Specialty Start Date End Date Ran Nuñez MD [address] [place] [address] PCP - General Family Medicine 08/30/21 [place] [address] [place] [address] [facility] 03/04/23 08/21/23 Hillary Apple MD [facility] [place] [address] Hematology and Oncology 03/17/19 Tony Dumont MD [address] [place] [address] Hematology and Oncology 03/17/19 Maryjo Reinoso, [facility] 7Th Grade Social Studies Teacher 03/17/19 Madyson Clay, PharmD 03/17/19 Dana Lala APRN-CORE STICKER [address] [facility] [address] Oncology 03/17/19 Tiffanie Nguyen APRN-MEDICAL SERVICE TECHNICIAN [address] [facility] [address] [address] Family Medicine 03/17/19 Cesar Tavares MD [facility] 2nd [place] [address] Referring Physician Medical Oncology 03/23/19 Joy Bob 09/22/19 Tony Dumont MD [address] [place] [address] Hematology and Oncology 10/30/21 Shalini Segal MD [address] [place] [address] OF HEMATOLOGY [place] [address] Greenhouse Technician/Oncologist Hematology and Oncology 10/30/21 Stefanie Burns, RN Registered Nurse 10/30/21 Fatemeh Bolaños, RN Registered Nurse 10/30/21 Chandana Lu MD [address] [place] [address] Orthopedic Surgery 03/30/24 documented as of this encounter
--- OUTSIDE RECORDS SUMMARY | 2025-04-21 14:10 | XMS_ITS | Encounter Summary ---
Author Organization [facility] [employer] Address [address] [place] [address] Care Team Providers Care Pigs Feet Finisher Name Role Phone Ran Nuñez MD Primary Care Provider Reason for Visit * Reason Comments Medication Refill Encounter Details Date Type Department Care Team (Late Contact Info) Description 07/17/[address] [facility] Oncology and Hematology [address] [place] [address] Cesar Tavares MD [address] [employer] [address] [place] [address] Social History Tobacco Use Types Packs/Day [...] Visit [facility] Oncology and Hematology [address] [place] [address] Cesar aTvares MD [address] [employer] [address] [place] [address] documented as of this encounter Visit Diagnoses Not on filedocumented in this encounter Care Teams Pigs Feet Finisher Relationship Specialty Start Date End Date Ran Nuñez MD [address] [place] [address] PCP - General Family Practice 08/15/17 documented as of this encounter
--- OUTSIDE RECORDS SUMMARY | 2025-04-21 14:10 | XMS_ITS | Clinical Summary ---
Author Organization [facility] Address [address] [facility] [place] [address] Care Team Providers Care Shell Trim Tool Setter Name Role Phone Hillary Apple MD Unavailable [phone] Tony Dumont MD Unavailable [phone] Maryjo ReinosoW Unavailable Unavailab Madyson Nicolas PharmD Unavailable Unavaila Dana Galicia FILING AND POLISHING SUPERVISOR-COMMUNITY RELATIONS ASSISTANT Unavailable [phone] Tiffanie Nguyen FILING AND POLISHING SUPERVISOR-MANAGER WELDING Unavailable [phone] Cesar Tavares MD Unavailable [phone] Joy Bob Unavailable Fanta Ran Augustine MD Primary Care Provider Tony Dumont MD Unavailable [phone] Shalini Segal MD Unavailable [phone] Stefanie Burns RN Unavailable Unavaila Fatemeh Kelly RN Unavailable Unavailable Chandana Lu MD Unavailable [phone] Source Comments [facility],non-owned Affiliates and Associated Physician Practices is amultiple site organization consisting of ambulatory clinics and hospital sitesin [place], [place], [place] and [place]. This disclosure is being madepursuant [...] AM CDT Legal 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 SENIOR COMPLIANCE OFFICER Gender Identity Male 03/27/2022 11:34 AM CDT Sexual Orientation Straight 03/27/2022 11 :34 AM CDT Last Filed Vital Signs Vital Sign Reading Time Taken Comments Blood Pressure 101/70 02/26/2024 8:05 AM CDT Pulse 69 02/26/2024 8:05 AM CDT Temperature 37.2 C (99 F) 06/30/2022 6:32 PM SENIOR COMPLIANCE OFFICER Respiratory Rate 17 02/26/2024 8:05 AM CDT Oxygen Saturation 95% 02/26/2024 8:05 AM CDT Inhaled Oxygen Concentration 50% 09/2019 12:16 AM CDT Weight 114.4 kg (252 lb 3.2 oz) 02/26/2024 8:05 AM CDT Height 172.7 cm (5' 8) 02/26/2024 8:05 AM CDT Body Mass Index [...] (Group B) VACCINE SHARED DECISION-MAKING (1 of 4 - Increased Risk) 1980 DEPRESSION SCREENING 08/04/2024 06/30/2022 MEDICARE AWV CALENDAR YEAR 2024 SCREENING FOR DIABETES 08/30/2024 , 02/15/2021, 12/20/2020, Additional history exists COVID-19 VACCINE ( - season) 2025 05/22/2022, 12/20/2021, 08/30/2021, Additional history exists INFLUENZA VACCINE (#1) 2025 05/22/2022, 2018 MENINGOCOCCAL GROUPS A/C/Y/W VACCINE (3 - Risk [...] this topic Medical Devices Implanted Type Area Sample Book Maker Device Identifier Shelf Expiration Date Model / Serial / Lot Tray Cath 12fr 23cm Hkmn Trifusion 3 Lum Implanted:Qty: 1 on 09/17/2019 at [facility] [employer] 05/03/2021 [id number] / / [id number] Procedures Procedure Name Priority Date/Time Associated Diagnosis Comments COMPREHENSIVE METABOLIC PANEL STAT 08/30/2021 11:36 AM SENIOR COMPLIANCE OFFICER Diffuse large B-cell lymphoma, unspecified body region LIPID PROFILE Routine 08/30/2021 11:36 AM SENIOR COMPLIANCE OFFICER Diffuse large B-cell lymphoma, unspecified body region S/P autologous bone marrow transplantation HEPATITIS C ANTIBODY Routine 09/09/2019 12:42 PM SENIOR COMPLIANCE OFFICER Pre-transplant evaluation for stem cell transplant HIV-1 HIV-2 ANTIGEN/ANTIBODY Routine 03/22/2019 3:00 PM CDT Diffuse large B-cell lymphoma, unspecified body region from Last 3 Months or Most Recently Relevant to Health Maintenance Results * (ABNORMAL) COMPREHENSIVE METABOLIC PANEL (08/30/2021 11:36 AM SENIOR COMPLIANCE OFFICER) BUN 12 7 - 26 mg/dL 08/30/2021 12:10 PM [facility] Creatinine 1.02 0.71 - 1.16 mg/dL 08/30/2021 12:10 PM [facility] Sodium 140 136 - 145 mmol/L 08/30/2021 12:10 PM [facility] Potassium 4.8(H) 3.5 - 4.5 mmol/L 08/30/2021 12:10 PM [facility] Chloride 107 98 - 107 mmol/L 08/30/2021 12:10 PM [facility] CO2 23 22 - 29 mmol/L 08/30/2021 12:10 PM [facility] Glucose 99 70 - 115 mg/dL 08/30/2021 12:10 PM [facility] Calcium 9.4 8.4 - 10.2 mg/dL 08/30/2021 12:10 PM [facility] Protein Total 6.6 6.0 - 8.3 g/dL 08/30/2021 12:10 PM [facility] Albumin 3.9 3.4 - 5.0 g/dL 08/30/2021 12:10 PM [facility] Bilirubin Total 0.4 0.2 - 1.2 mg/dL 08/30/2021 12:10 PM [facility] Alkaline Phosphatase 113 40 - 150 U/L 08/30/2021 12:10 PM [facility] ALT 38 5 - 55 U/L 08/30/2021 12:10 PM [facility] AST 26 5 - 34 U/L 08/30/2021 12:10 PM [facility] Anion Gap 15 8 - 18 08/30/2021 12:10 PM [facility] BUN/Creatinine Ratio 12 7 - 23 08/30/2021 12:10 PM [facility] Osmolality Calculated 290 270 - 300 mOsm/kg 08/30/2021 12:10 PM [facility] Albumin/Globulin Ratio 1.4 1.1 - 2.3 08/30/2021 12:10 PM [facility] eGFR by CKD-EPI 85(L) >=90 mL/min/1.7 3 m2 08/30/2021 12:10 PM [facility] Blood BLOOD SPECIMEN / Unknown Venipuncture / Unknown 08/30/2021 11:36 AM SENIOR COMPLIANCE OFFICER 08/30/2021 11:46 AM [facility] us Tiffanie Nguyen FILING AND POLISHING SUPERVISOR-MANAGER WELDING LAB - CHEMISTRY ORDERAB LES Final Result [facility] [address] [place] [address], [facility] [phone] * (ABNORMAL) LIPID PROFILE (08/30/2021 11:36 AM [facility]) Cholesterol Total 207(H) <200 mg/dL 08/30/2021 12:10 PM [facility] HDL 38(L) >40 mg/dL 08/30/2021 12:10 PM [facility] Comment: ATP III Classification of HDL Cholesterol: <40 mg/dL: Considered a major risk factor. >60 mg/dL: Considered a negative risk factor. LDL Calculated 152(H) <100 mg/dL 08/30/2021 12:10 PM [facility] Comment: ATP III Classification of LDL Cholesterol: <100 mg/dL: Optimal 100 - 129 mg/dL: Near Optimal/Above Optimal 130 - 159 mg/dL: Borderline High 160 - 189 mg/dL: High >190 mg/dL: Very High Triglycerides 87 <150 mg/dL 08/30/2021 12:10 PM [facility] Comment: ATP III Classification of Triglycerides: <150 mg/dL: Normal 150 - 199 mg/dL: Borderline High 200 - 400 mg/dL: High >500 mg/dL: Very High Blood BLOOD SPECIMEN / Unknown Venipuncture / Unknown 08/30/2021 11:36 AM SENIOR COMPLIANCE OFFICER 08/30/2021 11:46 AM SENIOR COMPLIANCE OFFICER us Tiffanie Nguyen FILING AND POLISHING SU[facility] LAB - CHEMISTRY ORDERAB LES Final Result Performing Organization Address City/[facility]/ZIP Co de Phone Number [facility] [address] [place] [address], [facility] [phone] * HEPATITIS C ANTIBODY (09/09/2019 12:42 PM SENIOR COMPLIANCE OFFICER) Hepatitis C Antibody Non-react robyn Non-reac tive 09/09/2019 1:46 PM SENIOR COMPLIANCE OFFICER [facility] Comment: Hepatitis C [...] Unknown Venipuncture / Unknown 09/09/2019 12:42 PM SENIOR COMPLIANCE OFFICER 09/09/2019 12:51 PM SENIOR COMPLIANCE OFFICER us Tiffanie Seymour Patrick FILING AND POLISHING SUPERVISORSA[facility] LAB - CHEMISTRY ORDERAB LES Final Result Performing Organization Address [facility]/ZIP Co de Phone Number [facility] [address] [place] [address], [facility] [phone] * HIV-1 HIV-2 ANTIGEN/ANTIBODY (03/22/2019 3:00 PM CDT) HIV Antigen/Antibod y 1 & 2 Non-reacti ve Non-react robyn 03/22/2019 3:[address] [facility] Comment: Neither HIV-1 p24 Antigen nor HIV-1/HIV-2 Antibodies are detected. Blood BLOOD SPECIMEN / Unknown Venipuncture / Unknown 03/22/2019 3:00 PM CDT 03/22/2019 3:11 PM CDT Tiffanie Nguyen FILING AND POLISHING SUPERVISOR-MANAGER WELDING LAB - HEMATOLOGY ORDERA BLES Final Result [address] [phone] from Last 3 Months or Most Recently Relevant to Health Maintenance Insurance [employer] MEDICARE ADV [place] [id number] [employer] Advance Directives Documents on File Type Date Recorded Patient Railroad Track Inspector Expl anation Adv Directive/Living Will/POA 10/27/2019 2:34 [...] 6:25 PM 08/19/2019 4:51 PM Care Teams Shell Trim Tool Setter Relationship Specialty Start Date End Date Ran Nuñez MD [address] [place] [address] PCP - General Family Medicine 08/30/21 Hillary Apple MD [address] [place] [address] Hematology and Oncology 03/17/19 Tony Dumont MD [facility] [place] [address] Hematology and Oncology 03/17/19 Maryjo Reinoso, RETAIL SUPPORT SPECIALIST Cathode Builder 03/17/19 Madyson Clay, PharmD 03/17/19 Dana Lala, FILING AND POLISHING SUPERVISOR-COMMUNITY RELATIONS ASSISTANT [facility] [address] Oncology 03/17/19 Tiffanie Nguyen, FILING AND POLISHING SUPERVISOR-MANAGER WELDING [address] [address] Family Medicine 03/17/19 Cesar Tavares MD [address] [place] [address] Referring Physician Medical Oncology 03/23/19 Joy Bob 09/22/19 Tony Dumont MD [address] [place] [address] Hematology and Oncology 10/30/21 Shalini Segal MD [address] [facility] [place] [address] Clothes Model/Oncologist Hematology and Oncology 10/30/21 Stefanie Burns, ROSEMARY Registered Nurse 10/30/21 Fatemeh Bolaños, RN Registered Nurse 10/30/21 Chandana Lu MD [address] [place] [address] Orthopedic Surgery 03/30/24
--- OUTSIDE RECORDS SUMMARY | 2025-04-21 14:10 | XMS_ITS ---
Author Organization [facility] Address [address] [facility] [place] [address] Care Team Providers Care Exit Booth Agent Name Role Phone Hillary Apple MD Unavailable [phone] Tony Dumont MD Unavailable [phone] Maryjo ReinosoW Unavailable Unavailab Madyson Nicolas PharmD Unavailable Unavaila Dana Galicia NANOTECHNOLOGY ENGINEERING TECHNOLOGIST-NATIONAL OPELINT ANALYST Unavailable [phone] Tiffanie Nugyen NANOTECHNOLOGY ENGINEERING TECHNOLOGIST-COMMUNITY SPORTS COORDINATOR Unavailable [phone] Cesar Tavares MD Unavailable [phone] Joy Bob Unavailable Fanta Ran Augustine MD Primary Care Provider Tony Dumont MD Unavailable [phone] Shalini Segal MD Unavailable [phone] Stefanie Burns RN Unavailable Unavaila Fatemeh Kelly RN Unavailable Unavailable Chandana Lu MD Unavailable [phone] Active Problems Problem Noted Date Diagnosed [...] 02/28/2020 No medications scheduled. Therapy Complete Hillary Aplpe MD 3 of 3 cycles started ONCOLOGY TREATMENT Plan Name Start Date Discontinue Date Treatment Medications Discontinue Reason Plan Provider Cycles BMT CONDITIONING [id number] SCHEMA A - (BEAM) CARMUSTINE + ETOPOSIDE [...]
--- OUTSIDE RECORDS SUMMARY | 2025-04-21 14:10 | XMS_ITS | Encounter Summary ---
Author Organization [facility] Address [address] [place] [address] Care Team Providers Care Electrotype Molder Name Role Phone Ran Nuñez MD Primary Care Provider Reason for Visit * Reason Onset Date Comments Med Change Request 12/13/2022 Encounter Details Date Type Department Care Team (Late st Contact Info) Description 12/13/2022 Telephone [facility] Oncology and Hematology - [place] [address] [facility] [address] [place] [address] Cesar Tavares MD [address] [facility] [address] [place] [address] Med Change Request Social History [...] [facility] Oncology and Hematology - [place] [address] [facility] [address] [place] [address] Cesar Tavares MD [address] [facility] [address] [place] [address] documented as of this encounter Visit Diagnoses Diagnosis 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
[2025-04-21 14:17] LABS: Hematocrit 39.6 % (42.0-52.0); Hemoglobin 13.3 g/dL (14.0-18.0); Immature Granulocyte Percent A 0.4 % (0-0.5); Lymphocytes Absolute Auto 5.83 K/mm3 (0.9-3.2); Mean Corpuscular HGB Conc 33.6 g/dl (32-36); Mean Corpuscular Hemoglobin 28.5 pg (26-34); Mean Corpuscular Volume 84.8 fl (80-100); Nucleated Red Blood Cells Absolute Auto 0.000 K/mm3 (0.0-0.012); Nucleated Red Blood Cells Perc 0.0 % (0.0-0.2); Platelet Count Result 341 k/mm3 (150-375); Red Blood Count 4.67 M/mm3 (4.6-6.20); White Blood Count 13.7 K/mm3 (4.5-10.0)
[2025-04-21 14:19] LABS: Blood Urea Nitrogen 18 mg/dL (8-26); Carbon Dioxide 27 mmol/L (22-30); Chloride 105 mmol/L (98-109); Estimated Glomerular Filt Rate > 60; Glucose 93 mg/dL (70-105); Ionized Calcium (POC) 1.26 mmol/L (1.11-1.31); Potassium 4.2 mmol/L (3.5-4.9); Sodium 142 mmol/L (138-146)
[2025-04-21 14:21] LABS: Schistocytes None Seen
[2025-04-21 14:24] LABS: Anisocytosis 2+; Target Cells 1+
[2025-04-21 15:41] LABS: Alanine Aminotransferase 29 U/L (6-50); Albumin Level 4.0 g/dL (3.5-5.1); Alkaline Phosphatase 91 U/L (38-126); Anion Gap 3 mmol/L (4-12); Aspartate Amino Transferase 38 U/L (17-59); Bilirubin,Total 0.2 mg/dL (0.2-1.3); Blood Urea Nitrogen 18 mg/dL (9-20); Calcium 9.1 mg/dL (8.4-10.2); Carbon Dioxide 29 mmol/L (22-30); Chloride 106 mmol/L (98-107); Estimated Glomerular Filt Rate > 60; Glucose 92 mg/dL (65-110); Potassium 4.2 mmol/L (3.4-5.0); Sodium 138 mmol/L (137-145); Total Protein 7.5 g/dL (6.3-8.2)
== END 2025-04-21 14:08 | disposition home or self-care (01) ==
LOC: ANHLAB 14:08
PROVIDERS: PCP Family Medicine; Visit Provider Internal Medicine Hematology & Oncology
DX: C83.32 Diffuse large B-cell lymphoma, intrathoracic lymph nodes (principal)
CPT/HCPCS: 36415; 80047; 80053; 83615; 85025

== ENCOUNTER 2025-06-01 10:57 | Outpatient (CLI) | payer MEDICARE, SELFPAY ==
--- OUTSIDE RECORDS SUMMARY | 2022-05-31 08:30 | XMS_ITS | Continuity of Care Document ---
Author Organization [facility] Address [address] [facility] [place] [address] Phone Care Team Providers Care Wine Merchant Name Role Phone Darcy Yao OD Unavailable Unavailable Allergies, Adverse Reactions, Alerts Substance Reaction Status Criticality No Known Allergies Active No Inform ation Medications Medication Instructions Dosage Effective Dates (start - stop) Status Comments clonazepam 1 mg tablet take 1 tablet by oral route 3 times every day 1 MG - Active Lexapro 5 mg tablet take 1 tablet by oral route every day 5 MG - Active hydrocodone 10 mg-ibuprofen 200 mg tablet take 1 tablet by oral route every 4 - 6 hours as needed not to exceed 5 tablets in 24hrs as needed 1.00 tablet - Active acyclovir 800 mg tablet take 1 tablet by oral route every 4 hours for 10 days while awake 800 MG - Active penicillamine 250 mg capsule take 1 capsule by oral route every day on an empty stomach, 1 hour before or 2 hours after a meal 250 MG - Active Procedures Procedure Date Refraction No Charge Optomap Fundus Photos 022 Office/outpatient Visit, [facility] Frames Purchases SV Plastic Sphcyl [place] +/-4d, .12-2d Oc Anti-reflective Coating Advance Directives Directive Yes / No Effective Date File Name No Information Encounters Encounter Description Practice Location Reason(s) For Visit Diagnoses Date Provider Providers Copied on Encounter Office/outpat ient Visit, [facility], [address] [place] [address] [address], [place], [place], [id number], tel:[phone] SEC 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 [address] [place] [address], [address], [place], [place], [id number], . tel:[phone] Referring Provider: Darcy Levy, [address] [place] [address] [address], [place], [address] . tel:[phone] [facility], [address] [place], [place] [address], [place], [place], [id number], tel:[phone] SEC Andrea Patel No Information 2 [facility] . [address] [facility], [address], [place], [place], [address], . tel:[phone] Referring Provider: Darcy Levy, [address] [place] [address] [address], [place], [address] . tel:[phone] sulting Provider: Alan Mora, [address] [place], [address] . tel:[phone] Family History Family Member Type Diagnosis Age At Onset No Information Payers Payer name Insurance type Covered constitution party ID Radha laughlin(s) Aetna [id number] Social History Type Description Quantity Date Captured Comments Alcohol Use Details Caffeine Use Details Tobacco Use Status Chews tobacco Smoking Status Unknown if ever smoked Non-Smoking Tobacco Use Details Chewing: No Details Available Chewing: No Details Available Sex Male Chief Complaint And Reason For Visit From encounter dated 05/31/2022 13:30'. 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 Description: The 52 [...] Date Complaint History Of Prese nt Illness SHARE HOLDER complete exam The 52 year old patient presents for evaluation of SHARE HOLDER complete exam in the right eye and [...]
--- OUTSIDE RECORDS SUMMARY | 2025-06-01 12:31 | XMS_ITS | Encounter Summary ---
Author Organization [facility] [employer] [facility] Address [address] [place] [address] Care Team Providers Care Sound Effects Manager Name Role Phone Ran Nuñez MD Primary Care Provider Reason for Visit * Reason Onset Date Comments Med Change Request 12/13/2022 Encounter Details Date Type Department Care Team (Late st Contact Info) Description 12/13/2022 Telephone [facility] Oncology and Hematology - [place] [address] [facility] [address] [place] [address] Cesar Tavares MD [address] [facility] [address] [place] [address] Med Change Request Social History [...] Care Team (Late st Contact Info) Description 10/20/2025 1:15 PM CDT Office Visit [facility] Oncology and Hematology - [place] [address] [facility] [address] [place] [address] Cesar Tavares MD [address] [facility] [address] [place] [address] documented as of this encounter Visit Diagnoses Diagnosis 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
--- OUTSIDE RECORDS SUMMARY | 2025-06-01 12:31 | XMS_ITS | Encounter Summary ---
Author Organization [facility] Address [address] [place] [address] Care Team Providers Care System Trainer Name Role Phone Hillary Apple MD Unavailable [phone] Bill Ferrera MD Unavailable [phone] Tony Dumont MD Unavailable [phone] Shalini Segal MD Unavailable [phone] Karie Jones RN Unavailable Unavailable Maryjo Reinoso LCSW Unavailable Unavailab Madyson Nicolas PharmD Unavailable Unavaila Daan Galicia TAR CHASER-PASTRY MIXER Unavailable + [phone] Tiffanie Nguyen TAR CHASER-LAB SCIENTIST Unavailable [phone] Stephanie Mahoney RN Unavailable Unavailable Alycia Galvan RN Unavailable UnavailRan Mejía MD Primary Care Provider Cesar Tavares MD Unavailable [phone] Karie Jones RN Unavailable Unavailable Joy Bob Unavailable Fanta Addison Weinstein PharmD Unavailable Unavailab Alida Chang TAR CHASER-LAB SCIENTIST Primary Care Provider Ran Nuñez MD Primary Care Provider Tony Dumont MD Unavailable [phone] Shalini Segal MD Unavailable [phone] Stefanie Burns RN Unavailable Unavaila Fatemeh Kelly RN Unavailable Unavailable Glenn Hernandez MD Unavailable [phone] Chandana Lu MD Unavailable Reason for Visit * Reason Comments Insurance Issue/question termination of insurance Encounter Details Date Type Department Care Team (Late st Contact Info) Description 09/20/[address] [facility] [address] [place] [address] Joy Bob Insurance Issue/question (termination of insurance) [...] AM CDT Legal 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 INSECTICIDE EXPERT Gender Identity Male 03/27/2022 11:34 AM CDT [...] Entry Date Author No 08/19/2019 10:04 AM INSECTICIDE EXPERT Tiara Nguyen RN documented in this encounter Miscellaneous Notes * Telephone Encounter - Joy Bob - 09/20/2019 12:18 PM INSECTICIDE EXPERT Called and spoke with Mr. Guillen and discussed the termination of his insurance and find out if he has obtained a different insurance plan. Mr. Guillen stated he was not aware that his plan changed and was recently told. 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 I asked Mr. Guillen if he spoke with or received any information from the HR Department about COBRA,he stated no. I asked and was giving the HR Department contact number [phone]. I informed Mr. Guillen that he will [...] and Anastasia Nice notified in inactive coverage. CTICIDE EXPERT documented in this encounter Plan of Treatment [...] COVID-19 Confirmed 03/06/2020 07/14/2020 0 4:33 AM INSECTICIDE EXPERT COVID-19 Under Investigation 03/07/2020 03/07/2020 03/09/2020 8:54 AM CDT COVID-19 Under Investigation 03/29/2020 03/29/2020 03/30/2020 9:42 AM CDT COVID-19 Confirmed 08/31/2020 08/31/2020 4:34 AM INSECTICIDE EXPERT COVID-19 Confirmed 09/28/2020 09/28/2020 4:33 AM INSECTICIDE EXPERT COVID-19 Under Investigation 11/16/2020 11/16/2020 11/16/2020 6:52 PM CDT COVID-19 Confirmed 11/16/2020 11/16/2020 4:35 AM CDT COVID-19 Under Investigation 12/20/2020 12/20/2020 12/20/2020 6:23 PM CDT COVID-19 Under Investigation 04/21/2021 04/21/2021 2021 6:42 AM CDT documented as of this encounter Care Teams System Trainer Relationship Specialty Start Date End Date Ran Nuñez MD [address] [place] [address] PCP - General Family Medicine 03/22/19 12/22/20 Alida Marshall APRN-LAB SCIENTIST [address] [facility] [place] [address] PCP - General Family Medicine 12/23/20 08/29/21 Ran Nuñez MD [address] [place] [address] PCP - General Family Medicine 08/30/21 [place] [address] [facility] [place] [address] PCP - Attributed-Stefany MANRIQUEZ 03/04/23 08/21/23 Hillary Apple MD [address] [place] [address] Hematology and Oncology 03/17/19 Bill Ferrera MD [address] [place] [address] Hematology and Oncology 03/17/19 08/27/21 Tony Dumont MD [address] [place] [address] Hematology and Oncology 03/17/19 Shalini Segal MD [address] [place] [address] Hematology and Oncology 03/17/19 09/29/19 Karie Jones, RN Registered Nurse 03/17/19 09/21/19 Maryjo Reinoso, UNDER WATER ASSISTANT Lean Sensei 03/17/19 Madyosn Clay, PharmD 03/17/19 Dana Lala, TAR CHASER-PASTRY MIXER [address] [place] [address] [address] [place] [address] Oncology 03/17/19 Tiffanie Nguyen, TAR CHASER-LAB SCIENTIST [address] [place] [address] [address] [place] [address] Family Medicine 03/17/19 Stephanie Mahoney RN Registered Nurse 03/17/19 10/29/21 Alycia Galvan, ROSEMARY 03/17/19 10/29/21 Cesar Tavares MD [address] [place] [address] [place] [address] Referring Physician Medical Oncology 03/23/19 Karie Jones, RN Registered Nurse 06/08/19 10/29/21 Joy Bob 09/22/19 Addison Shea, EusebioD Pharmacist 09/22/19 10/29/21 Tony Dumont MD [address] [place] [address] Hematology and Oncology 10/30/21 Shalini Segal MD [address] [facility] [place] [address] Graduate Advisor/Oncologis t Hematology and Oncology 10/30/21 Stefanie Burns, RN Registered Nurse 10/30/21 Fatemeh Bolaños RN Registered Nurse 10/30/21 Chandana Lu MD [address] [place] [address] Orthopedic Surgery 03/30/24 documented as of this encounter
--- OUTSIDE RECORDS SUMMARY | 2025-06-01 12:31 | XMS_ITS | Encounter Summary ---
Author Organization [facility] Address [address] [place] [address] Care Team Providers Care Rink Rat Name Role Phone Hillary Apple MD Unavailable [phone] Bill Ferrera MD Unavailable [phone] Tony Dumont MD Unavailable [phone] Shalini Segal MD Unavailable [phone] Karie Jones RN Unavailable Unavailable Maryjo Reinoso LCSW Unavailable Unavailab Madyson Nicolas PharmD Unavailable Unavaila Dana Galicia EXTENSION SERVICE SPECIALIST IN CHARGE-CHRISTIAN SCIENCE READER Unavailable + [phone] Mckinley SilverC Unavailable Unavail able Patrick, Lara EXTENSION SERVICE SPECIALIST IN CHARGE-CHANNEL MARKETING SPECIALIST Unavailable [phone] Stephanie Mahoney RN Unavailable Unavailable Alycia Galvan RN Unavailable UnavailRan Mejía MD Primary Care Provider Cesar Tavares MD Unavailable [phone] Karie Jones RN Unavailable Unavailable Joy Bob Unavailable Fanta Addison Weinstein PharmD Unavailable Unavailab Alida Chang EXTENSION SERVICE SPECIALIST IN CHARGE-CHANNEL MARKETING SPECIALIST Primary Care Provider Ran Nuñez MD Primary Care Provider Tony Dumont MD Unavailable [phone] Shalini Segal MD Unavailable Stefanie Burns RN Unavailable Unavaila Fatemeh Kelly RN Unavailable Unavailable Glenn Hernandez MD Unavailable Chandana Lu MD Unavailable [phone] Encounter Details Date Type Department Care Team (Late st Contact Info) Description 03/24/2019 Lab Requisition [facility] Care Pathology Lab [address] [place] [address] Roseline Higgins MD [address] [place] [address] Social History Tobacco Use Types Packs/Day Years Used Date Smoking Tobacco: Never Assessed Sex and Gender Information Value Date Recorded Sex Assigned at Male 03/27/2022 11:34 AM CDT Legal 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 PET CARE ASSOCIATE Gender Identity Male 03/27/2022 11:34 AM [...] Report Bone Marrow Patholog y Report Case: [id number] Authorizing Provider: Roseline Higgins MD Collected: 03/23/2019 10:40 AM Ordering Location: [facility] Pathology Lab Received: 03/24/2019 03:08 PM Pathologist: [...] - See microscopic description. 03/25/2019 1:01 PM [facility] PATHOLOGY LAB at [address] CDT AP Comment [...] testing is required. KR 03/25/2019 1:01 PM [facility] Peripheral Smear Description CBC [...] decreased. Platelet morphology: normal. 03/25/2019 1:01 PM [facility] Bone Marrow Aspirate Differential [...] (by special stain): decreased. 03/25/2019 1:01 PM [facility] Bone Marrow Core Biopsy [...] the bone marrow core biopsy in the [facility] Department of Pathology. All controls are [...] and fungal organisms, respectively. 03/25/2019 1:01 PM [facility] Flow Cytometry Summary Concurrent flow cytometry ([id number]) shows involvement by a CD5-negative, VG24-iaoennmr mature B-cell lymphoma. 03/25/2019 1:01 PM [facility] Clinical History 48 year old man with a history of B-cell lymphoma, lymphadenopathy, and splenomegaly, status-post treatment. 03/25/2019 1:01 PM [facility] Materials Received Received are 20 slides and 3 blocks labeled as [id number] along with the outside pathology report. [place] [address]. All materials are returned to the referring institution, along with a copy of our final report. 03/25/2019 1:01 PM [facility] Disclaimer The performance characteristics of all immunohistochemical and indirect immunofluorescence stains (if any) cited in this report were determined by the Histopathology Laboratory of [facility]. Some of these tests were developed [...] interpretation of this case is performed by [facility] Pathology at [facility], [address] [place] [address]. 03/25/2019 1:01 PM CDT [facility] PATH[facility] Embedded Images 03/25/2019 1:01 PM CDT [facility] Pathology/Cytology SPECIMEN FROM [...] - PATHOLOGY/CYTOLOGY ORDERAB LES Final Result [facility] PATHOLOG[facility] LAB [address] [place] [address], [facility] [phone] documented in this encounter Visit Diagnoses Not [...] COVID-19 Confirmed 03/06/2020 07/14/2020202 0 4:33 AM PET CARE ASSOCIATE COVID-19 Under Investigation 03/07/2020 03/07/2020 03/09/2020 8:54 AM CDT COVID-19 Under Investigation 03/29/2020 03/29/2020 03/30/2020 9:42 AM CDT COVID-19 Confirmed 08/31/2020 08/31/2020 1 4:34 AM PET CARE ASSOCIATE COVID-19 Confirmed 09/28/2020 09/28/2020 1 4:33 AM PET CARE ASSOCIATE COVID-19 Under Investigation 11/16/2020 11/16/2020 11/16/2020 6:52 PM CDT COVID-19 Confirmed 11/16/2020 11/16/2020 4:35 AM CDT COVID-19 Under Investigation 12/20/2020 12/20/2020 12/20/2020 6:23 PM CDT COVID-19 Under Investigation 04/21/2021 04/21/2021 2021 6:42 AM CDT documented as of this encounter Care Teams Rink Rat Relationship Specialty Start Date End Date Ran Nuñez MD [address] [place] [address] PCP - General Family Medicine 03/22/19 12/22/20 Alida Marshall APRN-CHANNEL MARKETING SPECIALIST [address] [facility] & [place] [address] PCP - General Family Medicine 12/23/20 08/29/21 Ran Nuñez MD [address] [place] [address] PCP - General Family Medicine 08/30/21 [place] [address] [facility] [place] [address] PCP - Attributed-Stefany [place] 03/04/23 08/21/23 Hillary Apple MD [address] [place] [address] Hematology and Oncology 03/17/19 Bill Ferrera MD [address] [place] [address] Hematology and Oncology 03/17/19 08/27/21 Tony Dumont MD [address] [place] [address] Hematology and Oncology 03/17/19 Shalini Segal MD [address] [place] [address] Hematology and Oncology 03/17/19 09/29/19 Karie Jones, RN Registered Nurse 03/17/19 09/21/19 Maryjo Reinoso, INSURANCE CLAIMS CLERK Real Estate Development Manager 03/17/19 Madyson Clay, PharmD 03/17/19 Dana Lala EXTENSION SERVICE SPECIALIST IN CHARGE-CHRISTIAN SCIENCE READER [address] [place] [address] [address] [address] Oncology 03/17/19 Mckinley Silver PA-C [address] [place] [address] [address] [address] Physician Irrigation Pump Installer 03/17/19 09/08/19 Tiffanie Nguyen, EXTENSION SERVICE SPECIALIST IN CHARGE-CHANNEL MARKETING SPECIALIST [address] [place] [address] [address] [address] Family Medicine 03/17/19 Stephanie Mahoney, RN Registered Nurse 03/17/19 10/29/21 Alycia Galvan, ROSEMARY 03/17/19 10/29/21 Cesar Tavares MD [address] [place] [address] Referring Physician Medical Oncology 03/23/19 Karie Jones, RN Registered Nurse 06/08/19 10/29/21 Joy Bob 09/22/19 Addison Shea, PharmD Pharmacist 09/22/19 10/29/21 Tony Dumont MD [address] [place] [address] Hematology and Oncology 10/30/21 Shalini Segal MD [address] [facility] [place] [address] Pet Care Associate/Oncologis t Hematology and Oncology 10/30/21 Stefanie Burns, RN Registered Nurse 10/30/21 Fatemeh Bolaños RN Registered Nurse 10/30/21 Chandana Lu MD [address] [place] [address] Orthopedic Surgery 03/30/24 documented as of this encounter
--- OUTSIDE RECORDS SUMMARY | 2025-06-01 12:31 | XMS_ITS | Encounter Summary ---
Author Organization [facility] Address [address] [place] [address] Care Team Providers Care Whip Operator Name Role Phone Hillary Apple MD Unavailable [phone] Bill Ferrera MD Unavailable [phone] Tony Dumont MD Unavailable [phone] Maryjo Reinoso LCSW Unavailable Unavailab Madyson Nicolas PharmD Unavailable Unavaila Dana Galicia TOOLROOM MACHINIST-PENSION ADVISER Unavailable + [phone] Tiffanie Nguyen TOOLROOM MACHINIST-FAST FOOD CASHIER Unavailable [phone] Stephanie Mahoney RN Unavailable Unavailable Alycia Galvan RN Unavailable UnavailRan Mejía MD Primary Care Provider Cesar Tavares MD Unavailable [phone] Karie Jones RN Unavailable Unavailable Joy Bob Unavailable Fanta Addison Weinstein PharmD Unavailable Unavailab Alida Chang TOOLROOM MACHINIST-FAST FOOD CASHIER Primary Care Provider Ran Nuñez MD Primary Care Provider Tony Dumont MD Unavailable [phone] Shalini Segal MD Unavailable [phone] Stefanie Burns RN Unavailable Unavaila Fatemeh Kelly RN Unavailable Unavailable Glenn Hernandez MD Unavailable Chandana Lu MD Unavailable Reason for Visit * Reason Onset Date Comments MEDICATION REFILL 10/01/2020 Encounter Details Date Type Department Care Team (Late st Contact Info) Description 10/01/2020 Refill [facility] [address] [place] [address] Hillary Apple MD [address] [facility] [place] [address] MEDICATION REFILL Social History Tobacco Use Types [...] AM CDT Legal 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 No / Unsure 09/28/2020 1:10 PM MACHINE PRESERVATIVE FILLER documented as of this encounter Functional [...] Assessment Author No 02/25/2020 10:12 PM CDT yRlee Coreas RN * Does person have difficulty [...] Time COVID-19 Confirmed 09/28/2020 09/28/2020 4:33 AM MACHINE PRESERVATIVE FILLER COVID-19 Under Investigation 11/16/2020 11/16/2020 11/16/2020 6:52 PM CDT COVID-19 Confirmed 11/16/2020 11/16/2020 4:35 AM CDT COVID-19 Under Investigation 12/20/2020 12/20/2020 12/20/2020 6:23 PM CDT COVID-19 Under Investigation 04/21/2021 04/21/2021 2021 6:42 AM CDT documented as of this encounter Care Teams Whip Operator Relationship Specialty Start Date End Date Ran Nuñez MD [address] [place] [address] PCP - General Family Medicine 03/22/19 12/22/20 Alida Marshall APRN-FAST FOOD CASHIER [address] [facility] [place] [address] PCP - General Family Medicine 12/23/20 08/29/21 Ran Nuñez MD [address] [place] [address] PCP - General Family Medicine 08/30/21 [place] [address] [place] [address] PCP - Attributed-[facility] 03/04/23 08/21/23 Hillary Apple MD [address] [place] [address] Hematology and Oncology 03/17/19 Bill Ferrera MD [address] [place] [address] Hematology and Oncology 03/17/19 08/27/21 Tony Dumont MD [address] [place] [address] Hematology and Oncology 03/17/19 Maryjo Reinoso, [facility] Magazine Worker 03/17/19 Madyson Clay, PharmD 03/17/19 Dana Lala, TOOLROOM MACHINIST-PENSION ADVISER [address] [place] [address] [address] [place] [address] Oncology 03/17/19 Tiffanie Nguyen, TOOLROOM MACHINIST-FAST FOOD CASHIER [address] [place] [address] [address] [place] [address] Family Medicine 03/17/19 Stephanie Mahoney, RN Registered Nurse 03/17/19 10/29/21 Alycia Galvan, ROSEMARY 03/17/19 10/29/21 Cesar Tavares MD [address] [place] [address] Referring Physician Medical Oncology 03/23/19 Karie Jones, RN Registered Nurse 06/08/19 10/29/21 Joy Bob 09/22/19 Addison Shea, PharmD Pharmacist 09/22/19 10/29/21 Tony Dumont MD [address] [place] [address] Hematology and Oncology 10/30/21 Shalini Segal MD [address] [facility] [place] [address] Arson Investigator/Oncologis t Hematology and Oncology 10/30/21 Stefanie Burns, RN Registered Nurse 10/30/21 Fatemeh Bolaños, RN Registered Nurse 10/30/21 Chandana Lu MD [address] [place] [address] Orthopedic Surgery 03/30/24 documented as of this encounter
--- OUTSIDE RECORDS SUMMARY | 2025-06-01 12:31 | XMS_ITS | Encounter Summary ---
Author Organization [facility] Address [address] [facility] [place] [address] Care Team Providers Care Exercise Instruct Name Role Phone Hillary Apple MD Unavailable [phone] Bill Ferrera MD Unavailable [phone] Tony Dumont MD Unavailable [phone] Maryjo Reinoso LCSW Unavailable Unavailab Madyson Nicolas PharmD Unavailable Unavaila Dana Galicia MED SPA MANAGER-TALEND DEVELOPER Unavailable + [phone] Tiffanie Nguyen MED SPA MANAGER-NATUROPATHIC DOCTOR Unavailable [phone] Stephanie Mahoney RN Unavailable Unavailable Alycia Galvan RN Unavailable UnavailRan Mejía MD Primary Care Provider Cesar Tavares MD Unavailable [phone] Karie Jones RN Unavailable Unavailable Joy Bob Unavailable Fanta Addison Weinstein PharmD Unavailable Unavailab Alida Chang MED SPA MANAGER-NATUROPATHIC DOCTOR Primary Care Provider Ran Nuñez MD Primary Care Provider Tony Dumont MD Unavailable [phone] Shalini Segal MD Unavailable [phone] Stefanie Burns RN Unavailable Unavaila Fatemeh Kelly RN Unavailable Unavailable Glenn Hernandez MD Unavailable Chandana Lu MD Unavailable Reason for Visit * Reason Onset Date Comments MEDICATION REFILL 10/02/2020 Encounter Details Date Type Department Care Team (Late st Contact Info) Description 10/02/2020 Refill [facility] [address] [place] [address] Hillary Apple MD [address] [facility] [place] [address] MEDICATION REFILL Social History Tobacco Use Types [...] AM CDT 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 No / Unsure 09/28/2020 1:10 PM OPERATION SUPERVISOR documented as of this encounter Functional [...] Time COVID-19 Confirmed 09/28/2020 09/28/2020 4:33 AM OPERATION SUPERVISOR COVID-19 Under Investigation 11/16/2020 11/16/2020 11/16/2020 6:52 PM CDT COVID-19 Confirmed 11/16/2020 11/16/2020 4:35 AM CDT COVID-19 Under Investigation 12/20/2020 12/20/2020 12/20/2020 6:23 PM CDT COVID-19 Under Investigation 04/21/2021 04/21/2021 2021 6:42 AM CDT documented as of this encounter Care Teams Exercise Instruct Relationship Specialty Start Date End Date Ran Nuñez MD [address] [place] [address] PCP - General Family Medicine 03/22/19 12/22/20 Alida Marshall APRN-NATUROPATHIC DOCTOR [address] [facility] [place] [address] PCP - General Family Medicine 12/23/20 08/29/21 Ran Nuñez MD [address] [place] [address] PCP - General Family Medicine 08/30/21 [place] [address] [place] [address] PCP - Attributed-[facility] 03/04/23 08/21/23 Hillary Apple MD [address] [place] [address] Hematology and Oncology 03/17/19 Bill Ferrera MD [address] [place] [address] Hematology and Oncology 03/17/19 08/27/21 Tony Dumont MD [address] [place] [address] Hematology and Oncology 03/17/19 Maryjo Reinoso, [facility] Roll Up Helper 03/17/19 Madyson Clay, PharmD 03/17/19 Dana Lala, MED SPA MANAGER-TALEND DEVELOPER [address] [place] [address] [address] [address] Oncology 03/17/19 Tiffanie Nguyen, MED SPA MANAGER-NATUROPATHIC DOCTOR [address] [place] [address] [address] [address] Family Medicine 03/17/19 Stephanie Mahoney, RN Registered Nurse 03/17/19 10/29/21 Alycia Galvan, ROSEMARY 03/17/19 10/29/21 Cesar Tavares MD [address] [place] [address] Referring Physician Medical Oncology 03/23/19 Karie Jones, RN Registered Nurse 06/08/19 10/29/21 Joy Bob 09/22/19 Addison Shea, PharmD Pharmacist 09/22/19 10/29/21 Tony Dumont MD [address] [place] [address] Hematology and Oncology 10/30/21 Shalini Segal MD [address] [facility] [place] [address] Machines Technician/Oncologis t Hematology and Oncology 10/30/21 Stefanie Burns, RN Registered Nurse 10/30/21 Fatemeh Bolaños, RN Registered Nurse 10/30/21 Chandana Lu MD [address] [place] [address] Orthopedic Surgery 03/30/24 documented as of this encounter
--- OUTSIDE RECORDS SUMMARY | 2025-06-01 12:31 | XMS_ITS | Encounter Summary ---
Author Organization [facility] Address [address] [place] [address] Care Team Providers Care Cutter Grinder Operator Name Role Phone Ran Nuñez MD Primary Care Provider Reason for Visit * Reason Comments Medication Refill Encounter Details Date Type Department Care Team (Late Contact Info) Description 07/17/2019 Refill [facility] Oncology and Hematology Mina Nieves [address] [place] [address] Cesar Tavares MD [address] [place] [address] Social History Tobacco Use Types Packs/Day [...] Department Care Team (Late Contact Info) Description 10/20/2025 1:15 PM CDT Office Visit [facility] On[facility] Hematology Mina Alexandr [address] [place] [address] Cesar Tavares MD [address] [place] [address] documented as of this encounter Visit Diagnoses Not on filedocumented in this encounter Care Teams Cutter Grinder Operator Relationship Specialty Start Date End Date Ran Nuñez MD [address] [place] [address] PCP - General Family Practice 08/15/17 documented as of this encounter
--- OUTSIDE RECORDS SUMMARY | 2025-06-01 12:31 | XMS_ITS | Encounter Summary ---
Author Organization [facility] Address [address] [place] [place] [address] Care Team Providers Care Dross Skimmer Name Role Phone Hillary Apple MD Unavailable [phone] Tony Dumont MD Unavailable [phone] Maryjo ReinosoW Unavailable Unavailab Madyson Nicolas PharmD Unavailable Unavaila Dana Galicia ELECTRONICS INSTALLER-FIELD SERVICER Unavailable + [phone] Tiffanie Nguyen ELECTRONICS INSTALLER-CERTIFIED PARALEGAL Unavailable [phone] Cesar Tavares MD Unavailable [phone] Joy Bob Unavailable Fanta Ran Augustine MD Primary Care Provider Tony Dumont MD Unavailable [phone] Shalini Segal MD Unavailable [phone] Stefanie Burns RN Unavailable Unavaila Fatemeh Kelly RN Unavailable Unavailable Glenn Hernandez MD Unavailable [phone] Chandana Lu MD Unavailable [phone] Reason for Visit * Reason Onset Date Comments MEDICATION REFILL 12/24/2021 Encounter Details Date Type Department Care Team (Late st Contact Info) Description 12/24/2021 Refill [facility] CLINIC [address] [place] [address] Tiffanie Nguyen, ELECTRONICS INSTALLER-CERTIFIED PARALEGAL [address] [place] [address] MEDICATION REFILL Social History Tobacco Use Types [...] AM CDT 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 Retail Business Development Manager 03/17/19 Madyson Clay, PharmD 03/17/19 Dana Lala APRN-FIELD SERVICER [address] [facility] 2nd [place] [address] Oncology 03/17/19 Tiffanie Nguyen APRN-CERTIFIED PARALEGAL [address] [facility] 2nd [place] [address] Family Medicine 03/17/19 Cesar Tavares MD [facility] [place] 2nd [place] [address] Referring Physician Medical Oncology 03/23/19 Joy Bob 09/22/19 Tony Dumont MD [address] [place] [address] Hematology and Oncology 10/30/21 Shalini Segal MD [address] [place] [address] OF HEMATOLOGY & MEDICAL [place] [address] Nursing Manager/Oncologist Hematology and Oncology 10/30/21 Stefanie Burns, RN Registered Nurse 10/30/21 Fatemeh Bolaños, RN Registered Nurse 10/30/21 Chandana Lu MD [address] [place] [address] Orthopedic Surgery 03/30/24 documented as of this encounter
--- OUTSIDE RECORDS SUMMARY | 2025-06-01 12:31 | XMS_ITS | Encounter Summary ---
Author Organization [facility] Address [address] [facility] [place] [address] Care Team Providers Care Barrel Leveler Name Role Phone Hillary Apple MD Unavailable [phone] Tony Dumont MD Unavailable [phone] Maryjo ReinosoW Unavailable Unavailab Madyson Nicolas PharmD Unavailable Unavaila Dana Galicia MANAGER CULTURE-ACID POLYMERIZATION OPERATOR Unavailable + [phone] Tiffanie Nguyen MANAGER CULTURE-DIGITAL LIBRARIAN Unavailable [phone] Cesar Tavares MD Unavailable [phone] Joy Bob Unavailable Fanta Ran Augustine MD Primary Care Provider Tony Dumont MD Unavailable [phone] Shalini Segal MD Unavailable [phone] Stefanie Burns RN Unavailable Unavaila Fatemeh Kelly RN Unavailable Unavailable Glenn Hernandez MD Unavailable [phone] Chandana Lu MD Unavailable [phone] Reason for Visit * Reason Onset Date Comments MEDICATION REFILL 04/24/2023 Encounter Details Date Type Department Care Team (Late st Contact Info) Description 04/24/2023 Refill [facility] CL[facility]IC [address] [place] [address] Tiffanie Nguyen, MANAGER CULTURE-DIGITAL LIBRARIAN [address] [place] [address] MEDICATION REFILL Social History Tobacco Use Types [...] AM CDT 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 Gender Identity Male 03/27/2022 11:34 AM [...] (RLS) documented in this encounter Care Teams Barrel Leveler Relationship Specialty Start Date End Date Ran Nuñez MD [address] [place] [address] PCP - General Family Medicine 08/30/21 [place] [address] [place] [address] PCP - [facility] 03/04/23 08/21/23 Hillary Apple MD [facility]5 [place] [address] Hematology and Oncology 03/17/19 Tony Dumont MD [facility] [place] [address] Hematology and Oncology 03/17/19 Maryjo Reinoso, [facility] Picture Copyist 03/17/19 Madyson Clay, PharmD 03/17/19 Dana Lala, MANAGER CULTURE-ACID POLYMERIZATION OPERATOR [address] [facility] 2nd [place] [address] Oncology 03/17/19 Tiffanie Nguyen, MANAGER CULTURE-DIGITAL LIBRARIAN [facility] 2nd [place] [address] Family Medicine 03/17/19 Cesar Tavares MD [facility] 2nd [place] [address] Referring Physician Medical Oncology 03/23/19 Joy Bob 09/22/19 Tony Dumont MD [address] [place] [address] Hematology and Oncology 10/30/21 Shalini Segal MD [address] [place] [address] OF HEMATOLOGY & [place] [address] Optometric Technologist/Oncologist Hematology and Oncology 10/30/21 Stefanie Burns, RN Registered Nurse 10/30/21 Fatemeh Bolaños RN Registered Nurse 10/30/21 Chandana Lu MD [address] [place] [address] Orthopedic Surgery 03/30/24 documented as of this encounter
--- OUTSIDE RECORDS SUMMARY | 2025-06-01 12:31 | XMS_ITS | Encounter Summary ---
Author Organization [facility] [employer] Address [address] [place] [address] Care Team Providers Care Mergers And Acquisitions Attorney Name Role Phone Ran Nuñez MD Primary Care Provider Encounter Details Date Type Department Care Team ([facility] Contact Info) Description 12/19/2022 Abstract [facility]3] Oncology and Hematology [facility] [address] [place] [address] Chuck Aguilera, ROSEMARY Social History [...] Upcoming Encounters Date Type Department Care Team ([facility] Contact Info) Description 10/20/2025 1:15 PM CDT Office Visit [facility]3] Oncology and Hematology [facility] [address] [place] [address] Cesar Tavares MD [address] [facility] [address] [place] [address] documented as of this encounter Visit Diagnoses Not on filedocumented in this encounter Care Teams Mergers And Acquisitions Attorney Relationship Specialty Start Date End Date Ran Nuñez MD [address] [place] [address] PCP - General Family Practice 08/15/17 documented as of this encounter
--- OUTSIDE RECORDS SUMMARY | 2025-06-01 12:31 | XMS_ITS | Encounter Summary ---
Author Organization [facility] Address [address] [facility] [place] [address] Care Team Providers Care Financial Planning Advisor Name Role Phone Hillary Apple MD Unavailable [phone] Tony Dumont MD Unavailable [phone] Maryjo ReinosoW Unavailable Unavailab Madyson Nicolas PharmD Unavailable Unavaila Dana Galicia CONCRETE BATCHING PLANT OPERATOR-WEIGHER AND MIXER Unavailable + [phone] Tiffanie Nguyen CONCRETE BATCHING PLANT OPERATOR-DOUGH MIXER Unavailable [phone] Cesar Tavares MD Unavailable [phone] Joy Bob Unavailable Fanta Ran Augustine MD Primary Care Provider Tony Dumont MD Unavailable [phone] Shalini Segal MD Unavailable [phone] Stefanie Burns RN Unavailable Unavaila Fatemeh Kelly RN Unavailable Unavailable Glenn Hernandez MD Unavailable [phone] Chandana Lu MD Unavailable [phone] Reason for Visit * Reason Onset Date Comments MEDICATION REFILL 04/24/2023 Encounter Details Date Type Department Care Team (Late st Contact Info) Description 04/24/2023 Refill [facility] B[facility] CL[facility] [address] [place] [address] Hillary Apple MD [address] [facility] [place] [address] MEDICATION REFILL Social History Tobacco Use Types [...] AM CDT 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 Gender Identity Male 03/27/2022 11:34 AM CDT [...] on filedocumented in this encounter Care Teams Financial Planning Advisor Relationship Specialty Start Date End Date Ran Nuñez MD [address] [place] [address] PCP - General Family Medicine 08/30/21 [place] [address] [place] [address] PCP - [facility] 03/04/23 08/21/23 Hillary Apple MD [address] [place] [address] Hematology and Oncology 03/17/19 Tony Dumont MD [facility]5 [place] [address] Hematology and Oncology 03/17/19 Maryjo Reinoso, [facility] Validation Analyst 03/17/19 Madyson Clay, PharmD 03/17/19 Dana Lala, CONCRETE BATCHING PLANT OPERATOR-WEIGHER AND MIXER [address] [facility] [address] [address] Oncology 03/17/19 Tiffanie Nguyen, CONCRETE BATCHING PLANT OPERATOR-DOUGH MIXER [address] [facility] 2nd [place] [address] Family Medicine 03/17/19 Cesar Tavares MD [address] [place], [place] [address] 2nd [place] [address] Referring Physician Medical Oncology 03/23/19 Joy Bob 09/22/19 Tony Dumont MD [address] [place] [phone] Hematology and Oncology 10/30/21 Shalini Segal MD [address] [place] [address] OF HEMATOLOGY & [place] [address] Jewelry Drilling Machine Operator/Oncologist Hematology and Oncology 10/30/21 Stefanie Burns, RN Registered Nurse 10/30/21 Fatemeh Bolaños RN Registered Nurse 10/30/21 Chandana Lu MD [address] [place] [address] Orthopedic Surgery 03/30/24 documented as of this encounter
--- OUTSIDE RECORDS SUMMARY | 2025-06-01 12:31 | XMS_ITS | Encounter Summary ---
Author Organization [facility] Address [address] [facility] [place] [address] Care Team Providers Care Ground Services Instructor Name Role Phone Hillary Apple MD Unavailable [phone] Tony Dumont MD Unavailable [phone] Maryjo ReinosoW Unavailable Unavailab Madyson Nicolas PharmD Unavailable Unavaila Dana Galicia PEDIATRIC CRITICAL CARE NURSE-COMMODITIES CLERK Unavailable + [phone] Tiffanie Nguyen PEDIATRIC CRITICAL CARE NURSE-SUPERVISOR INSTANT POTATO PROCESSING Unavailable [phone] Cesar Tavares MD Unavailable [phone] Joy Bob Unavailable Fanta Ran Augustine MD Primary Care Provider Tony Dumont MD Unavailable [phone] Shalini Segal MD Unavailable [phone] Stefanie Burns RN Unavailable Unavaila Fatemeh Kelly RN Unavailable Unavailable Glenn Hernandez MD Unavailable [phone] Chandana Lu MD Unavailable [phone] Reason for Visit * Reason Onset Date Comments MEDICATION REFILL 08/13/2023 Encounter Details Date Type Department Care Team (Late st Contact Info) Description 08/13/2023 Refill [facility] B[facility] CLIN[facility] [address] [place] [address] Tiffanie Nguyen, PEDIATRIC CRITICAL CARE NURSE-SUPERVISOR INSTANT POTATO PROCESSING [address] [place] [address] MEDICATION REFILL Social History Tobacco Use Types [...] AM CDT Legal 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 Booking Police Officer 03/17/19 Madyson Clay, PharmD 03/17/19 Dana Lala, PEDIATRIC CRITICAL CARE NURSE-COMMODITIES CLERK [address] [facility] 2nd [place] [address] Oncology 03/17/19 Tiffanie Nguyen, PEDIATRIC CRITICAL CARE NURSE-SUPERVISOR INSTANT POTATO PROCESSING [address] [facility] 2nd [place] [address] Family Medicine 03/17/19 Cesar Tavares MD [facility] 2nd [place] [address] Referring Physician Medical Oncology 03/23/19 Joy Bob 09/22/19 Tony Dumont MD [address] [place] [address] Hematology and Oncology 10/30/21 Shalini Segal MD [address] [facility] OF HEM[facility] & [place] [address] Laborer Brooder Farm/Oncologist Hematology and Oncology 10/30/21 Stefanie Burns, RN Registered Nurse 10/30/21 Fatemeh Bolaños RN Registered Nurse 10/30/21 Chandana Lu MD [address] [place] [address] Orthopedic Surgery 03/30/24 documented as of this encounter
--- OUTSIDE RECORDS SUMMARY | 2025-06-01 12:31 | XMS_ITS ---
Author Organization [facility] Address [address] [facility] [place] [address] Care Team Providers Care Manufacturing Planner Name Role Phone Hillary Apple MD Unavailable [phone] Tony Dumont MD Unavailable [phone] Maryjo ReinosoW Unavailable Unavailab Madyson Nicolas PharmD Unavailable Unavaila Dana Galicia GROUND CREW LINESMAN-CAUSTIC PREPARER Unavailable [phone] Tiffanie Nguyen GROUND CREW LINESMAN-EDUCATION AND TRAINING MANAGER Unavailable [phone] Cesar Tavares MD Unavailable [phone] Joy Bob Unavailable Fanta Ran Augustine MD Primary Care Provider Tony Dumont MD Unavailable [phone] Shalini Segal MD Unavailable [phone] Stefanie Burns RN Unavailable Unavaila Fatemeh Kelly RN Unavailable Unavailable Chandana Lu MD Unavailable [phone] Active Problems Problem Noted Date Diagnosed [...] 08/04/2022 No medications scheduled. Therapy Complete Tiffanie Ngueyn APRN-CNP 9 of 10 cycles started BMT MOBILIZATION + COLLECTION - AUTOLOGOUS HPC APHERESIS (FILGRASTIM + PLERIXAFOR) 0 02/28/2020 No medications scheduled. Therapy Complete Hillary Apple MD 3 of 3 cycles started ONCOLOGY TREATMENT Plan Name Start Date Discontinue Date Treatment Medications Discontinue Reason Plan Provider Cycles BMT CONDITIONING [id number] SCHEMA A - (BEAM) CARMUSTINE + ETOPOSIDE [...]
--- OUTSIDE RECORDS SUMMARY | 2025-06-01 12:31 | XMS_ITS | Encounter Summary ---
Author Organization [facility] Address [address] [facility] [place] [address] Care Team Providers Care Brush Material Preparer Name Role Phone Hillary Apple MD Unavailable [phone] Tony Dumont MD Unavailable [phone] Maryjo ReinosoW Unavailable Unavailab Madyson Nicolas PharmD Unavailable Unavaila Dana Galicia HOT MOLDER-LABORER ORCHARD Unavailable + [phone] Tiffanie Nguyen HOT MOLDER-ASSOCIATE FINANCIAL PLANNER Unavailable [phone] Cesar Tavares MD Unavailable [phone] Joy Bob Unavailable Fanta Ran Augustine MD Primary Care Provider Tony Dumont MD Unavailable [phone] Shalini Segal MD Unavailable [phone] Stefanie Burns RN Unavailable Unavaila Fatemeh Kelly RN Unavailable Unavailable Glenn Hernandez MD Unavailable [phone] Chandana Lu MD Unavailable [phone] Reason for Visit * Reason Onset Date Comments MEDICATION REFILL 08/13/2023 Encounter Details Date Type Department Care Team (Late st Contact Info) Description 08/13/2023 Refill [facility] B[facility] CLINIC [address] [place] [address] Hillary Apple MD [address] [facility] OF HEMATOLOGY [place] [address] MEDICATION REFILL Social History Tobacco Use Types [...] AM CDT Legal 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 BLOCK CAPTAIN Gender Identity Male 03/27/2022 11:34 AM CDT [...] on filedocumented in this encounter Care Teams Brush Material Preparer Relationship Specialty Start Date End Date Ran Nuñez MD [address] [place] [address] PCP - General Family Medicine 08/30/21 [place] [address] [facility] [place] [address] PCP - [facility] 03/04/23 08/21/23 Hillary Apple MD [address] [place] [address] Hematology and Oncology 03/17/19 Tony Dumont MD [facility] [place] [address] Hematology and Oncology 03/17/19 Maryjo Reinoso, [facility] Dag Sprayer 03/17/19 Madyson Clay, PharmD 03/17/19 Dana Lala, HOT MOLDER-LABORER ORCHARD [address] [facility] [place] [address] Oncology 03/17/19 Tiffanie Nguyen, HOT MOLDER-ASSOCIATE FINANCIAL PLANNER [address] [facility] 2[place] [address] Family Medicine 03/17/19 Cesar Tavares MD [address] [place], [place] [address]TA [facility] 2nd [place] [address] Referring Physician Medical Oncology 03/23/19 Joy Bob 09/22/19 Tony Dumont MD [address] [place] [phone] Hematology and Oncology 10/30/21 Shalini Segal MD [address] [place] [address] OF HEMATOLOGY [place] [address] Blue Leather Setter/Oncologist Hematology and Oncology 10/30/21 Stefanie Burns, RN Registered Nurse 10/30/21 Fatemeh Bolaños RN Registered Nurse 10/30/21 Chandana Lu MD [address] [place] [address] Orthopedic Surgery 03/30/24 documented as of this encounter
--- OUTSIDE RECORDS SUMMARY | 2025-06-01 12:31 | XMS_ITS | Encounter Summary ---
Author Organization [facility] Address [address] [facility] [place] [address] Care Team Providers Care Mouthpiece Maker Name Role Phone Hillary Apple MD Unavailable [phone] Bill Ferrera MD Unavailable [phone] Tony Dumont MD Unavailable [phone] Maryjo Reinoso LCSW Unavailable Unavailab Madyson Nicolas PharmD Unavailable Unavaila Dana Galicia TELEVISION ANCHOR-NUCLEAR RADIATION ENGINEER Unavailable + [phone] Tiffanie Nguyen TELEVISION ANCHOR-WAITER WAITRESS Unavailable [phone] Stephanie Mahoney RN Unavailable Unavailable Alycia Galvan RN Unavailable UnavailRan Mejía MD Primary Care Provider Cesar Tavares MD Unavailable [phone] Karie Jones RN Unavailable Unavailable Joy Bob Unavailable Fanta Addison Weinstein PharmD Unavailable Unavailab Alida Chang TELEVISION ANCHOR-WAITER WAITRESS Primary Care Provider Ran Nuñez MD Primary Care Provider Tony Dumont MD Unavailable [phone] Shalini Segal MD Unavailable [phone] Stefanie Burns RN Unavailable Unavaila Fatemeh Kelly RN Unavailable Unavailable Glenn Hernandez MD Unavailable Chandana Lu MD Unavailable Encounter Details Date Type Department Care Team (Late st Contact Info) Description 02/10/2020 Telephone [facility] B[facility] CLINIC [address] [place] [address] Stephanie Mahoney RN Social History Tobacco Use [...] AM CDT 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 Notified BMT STAVE JOINTER Tiffanie and we are going to hold [...] COVID-19 Confirmed 03/06/2020 07/14/2020 0 4:33 AM ORNAMENTAL IRON WORKER COVID-19 Under Investigation 03/07/2020 03/07/2020 03/09/2020 8:54 AM CDT COVID-19 Under Investigation 03/29/2020 03/29/2020 03/30/2020 9:42 AM CDT COVID-19 Confirmed 08/31/2020 08/31/2020 1 4:34 AM ORNAMENTAL IRON WORKER COVID-19 Confirmed 09/28/2020 09/28/2020 1 4:33 AM ORNAMENTAL IRON WORKER COVID-19 Under Investigation 11/16/2020 11/16/2020 11/16/2020 6:52 PM CDT COVID-19 Confirmed 11/16/2020 11/16/2020 1 4:35 AM CDT COVID-19 Under Investigation 12/20/2020 12/20/2020 12/20/2020 6:23 PM CDT COVID-19 Under Investigation 04/21/2021 04/21/2021 2021 6:42 AM CDT documented as of this encounter Care Teams Mouthpiece Maker Relationship Specialty Start Date End Date Ran Nuñez MD [address] [place] [address] PCP - General Family Medicine 03/22/19 12/22/20 Alida Marshall APRN-WAITER WAITRESS [address] [facility] OF HEMATOLOGY [place] [address] PCP - General Family Medicine 12/23/20 08/29/21 Ran Nuñez MD [address] [place] [address] PCP - General Family Medicine 08/30/21 [place] [address] [place] [address] [facility] [place] 03/[facility]/23 08/21/23 Hillary Apple MD [address] [place] [address] Hematology and Oncology 03/17/19 Bill Ferrera MD [address] [place] [address] Hematology and Oncology 03/17/19 08/27/21 Tony Dumont MD [address] [place] [address] Hematology and Oncology 03/17/19 Maryjo Reinoso, ROVING DEPARTMENT SUPERVISOR Parking Meter Collector 03/17/19 Madyson Clay, PharmD 03/17/19 Dana Laal, TELEVISION ANCHOR-NUCLEAR RADIATION ENGINEER [address] [facility] 2[place] [address] Oncology 03/17/19 Tiffanie Nguyen, TELEVISION ANCHOR-WAITER WAITRESS [address] [facility] 2[place] [address] Family Medicine 03/17/19 Stephanie Mahoney, RN Registered Nurse 03/17/19 10/29/21 Alycia Galvan, RN 03/17/19 10/29/21 [place] [address] Referring Physician Medical Oncology 03/23/19 Karie Jones, RN Registered Nurse 06/08/19 10/29/21 Joy Bob 09/22/19 Addison Shea, PharmD Pharmacist 09/22/19 10/29/21 Tony Dumont MD [address] [place] [address] Hematology and Oncology 10/30/21 Shalini Segal MD [address] [facility] OF HEMATOLOGY [place] [address] Ski Instructor/Oncologis t Hematology and Oncology 10/30/21 Stefanie Burns, RN Registered Nurse 10/30/21 Fatemeh Bolaños, RN Registered Nurse 10/30/21 Chandana Lu MD [address] [place] [address] Orthopedic Surgery 03/30/24 documented as of this encounter
--- OUTSIDE RECORDS SUMMARY | 2025-06-01 12:31 | XMS_ITS | Clinical Summary ---
Author Organization [facility] Address [address] [facility] [place] [address] Care Team Providers Care Waste Water Operator Name Role Phone Hillary Apple MD Unavailable [phone] Tony Dumont MD Unavailable [phone] Maryjo ReinosoW Unavailable Unavailab Madyson Nicolas PharmD Unavailable Unavaila Dana Galicia A/C TECHNICIAN-REGULATORY AFFAIRS ASSISTANT Unavailable [phone] Tiffanie Nguyen A/C TECHNICIAN-CONCERT MANAGER Unavailable [phone] Cesar Tavares MD Unavailable [phone] Joy Bob Unavailable Fanta Ran Augustine MD Primary Care Provider Tony Dumont MD Unavailable [phone] Shalini Segal MD Unavailable [phone] Stefanie Burns RN Unavailable Unavaila Fatemeh Kelly RN Unavailable Unavailable Chandana Lu MD Unavailable [phone] Source Comments [facility],non-owned Affiliates and Associated Physician Practices is amultiple site organization consisting of ambulatory clinics and hospital sitesin [place], [place], [place] and [place]. 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 Gender Identity Male 03/27/2022 11:34 AM CDT Sexual Orientation Straight 03/27/2022 11 :34 AM CDT Last Filed Vital Signs Vital Sign Reading Time Taken Comments Blood Pressure 101/70 02/26/2024 8:05 AM CDT Pulse 69 02/26/2024 8:05 AM CDT Temperature 37.2 C (99 F) 06/30/2022 6:32 PM BRIDGE CRANE OPERATOR Respiratory Rate 17 02/26/2024 8:05 AM [...] this topic Medical Devices Implanted Type Area Social Service Coordinator Device Identifier Shelf Expiration Date Model / Serial / Lot Tray Cath 12fr 23cm Hkmn Trifusion 3 Lum Implanted:Qty: 1 on 09/17/2019 at [facility] [employer] 05/03/2021 [id number] / / [id number] Procedures Procedure Name Priority Date/Time Associated Diagnosis Comments COMPREHENSIVE METABOLIC PANEL STAT 08/30/2021 11:36 AM BRIDGE CRANE OPERATOR Diffuse large B-cell lymphoma, unspecified body region LIPID PROFILE Routine 08/30/2021 11:36 AM BRIDGE CRANE OPERATOR Diffuse large B-cell lymphoma, unspecified body region S/P autologous bone marrow transplantation HEPATITIS C ANTIBODY Routine 09/09/2019 12:42 PM BRIDGE CRANE OPERATOR Pre-transplant evaluation for stem cell transplant HIV-1 HIV-2 ANTIGEN/ANTIBODY Routine 03/22/2019 3:00 PM CDT Diffuse large B-cell lymphoma, unspecified body region from Last 3 Months or Most Recently Relevant to Health Maintenance Results * (ABNORMAL) COMPREHENSIVE METABOLIC PANEL (08/30/2021 11:36 AM BRIDGE CRANE OPERATOR) BUN 12 7 - 26 mg/dL 08/30/2021 12:10 PM [facility] Creatinine 1.02 0.71 - 1.16 mg/dL 08/30/2021 12:10 PM [facility] Sodium 140 136 - 145 mmol/L 08/30/2021 12:10 PM [facility] Potassium 4.8(H) 3.5 - 4.5 mmol/L 08/30/2021 12:10 PM [facility] Chloride 107 98 - 107 mmol/L 08/30/2021 12:10 PM [facility] CO2 23 22 - 29 mmol/L 08/30/2021 12:10 PM [facility] Glucose 99 70 - 115 mg/dL 08/30/2021 12:10 PM [facility] Calcium 9.4 8.4 - 10.2 mg/dL 08/30/2021 12:10 PM [facility] Protein Total 6.6 6.0 - 8.3 g/dL 08/30/2021 12:10 PM [facility] Albumin 3.9 3.4 - 5.0 g/dL 08/30/2021 12:10 PM [facility] Bilirubin Total 0.4 0.2 - 1.2 mg/dL 08/30/2021 12:10 PM [facility] Alkaline Phosphatase 113 40 - 150 U/L 08/30/2021 12:10 PM [facility] ALT 38 5 - 55 U/L 08/30/2021 12:10 PM [facility] AST 26 5 - 34 U/L 08/30/2021 12:10 PM [facility] Anion Gap 15 8 - 18 08/30/2021 12:10 PM [facility] BUN/Creatinine Ratio 12 7 - 23 08/30/2021 12:10 PM [facility] Osmolality Calculated 290 270 - 300 mOsm/kg 08/30/2021 12:10 PM [facility] Albumin/Globulin Ratio 1.4 1.1 - 2.3 08/30/2021 12:10 PM [facility] eGFR by CKD-EPI 85(L) >=90 mL/min/1.7 3 m2 08/30/2021 12:10 PM [facility] Blood BLOOD SPECIMEN / Unknown Venipuncture / Unknown 08/30/2021 11:36 AM BRIDGE CRANE OPERATOR 08/30/2021 11:46 AM [facility] us Tiffanie Nguyen A/C TECHNICIAN-CONCERT MANAGER LAB - CHEMISTRY ORDERAB LES Final Result [facility] [address] [place] [address], [facility] [phone] * (ABNORMAL) LIPID PROFILE (08/30/2021 11:36 AM [facility]) Cholesterol Total 207(H) <200 mg/dL 08/30/2021 12:10 PM [facility] HDL 38(L) >40 mg/dL 08/30/2021 12:10 PM [facility] Comment: ATP III Classification of HDL Cholesterol: <40 mg/dL: Considered a major risk factor. >60 mg/dL: Considered a negative risk factor. LDL Calculated 152(H) <100 mg/dL 08/30/2021 12:10 PM [facility] Comment: ATP III Classification of LDL Cholesterol: <100 mg/dL: Optimal 100 - 129 mg/dL: Near Optimal/Above Optimal 130 - 159 mg/dL: Borderline High 160 - 189 mg/dL: High >190 mg/dL: Very High Triglycerides 87 <150 mg/dL 08/30/2021 12:10 PM [facility] Comment: ATP III Classification of Triglycerides: <150 mg/dL: Normal 150 - 199 mg/dL: Borderline High 200 - 400 mg/dL: High >500 mg/dL: Very High Blood BLOOD SPECIMEN / Unknown Venipuncture / Unknown 08/30/2021 11:36 AM BRIDGE CRANE OPERATOR 08/30/2021 11:46 AM BRIDGE CRANE OPERATOR us Tiffanie Nguyen A/C [facility] LAB - CHEMISTRY ORDERAB LES Final Result Performing Organization Address City/[facility]/ZIP Co de Phone Number [facility] [address] [place] [address], [facility] [phone] * HEPATITIS C ANTIBODY (09/09/2019 12:42 PM BRIDGE CRANE OPERATOR) Hepatitis C Antibody Non-react robyn Non-reac tive 09/09/2019 1:46 PM BRIDGE CRANE OPERATOR [facility] Comment: Hepatitis C Antibody screen indicates no serologic evidence of past or current infection with Hepatitis C Virus. Patients with unexplained liver disease who are immunocompromised or suspected of having acute Hepatitis C infection may benefit from Nucleic Acid Test (MEL) for Hepatitis C Viral RNA to confirm Hepatitis C status. Blood BLOOD SPECIMEN / Unknown Venipuncture / Unknown 09/09/2019 12:42 PM BRIDGE CRANE OPERATOR 09/09/2019 12:51 PM BRIDGE CRANE OPERATOR us Tiffanie [place] Patrick A/C [facility]IC[facility] LAB - CHEMISTRY ORDERAB LES Final Result Performing Organization Address [facility]/ZIP Co de Phone Number [facility] [address] [place] [address], [facility] [phone] * HIV-1 HIV-2 ANTIGEN/ANTIBODY (03/22/2019 3:00 PM CDT) HIV Antigen/Antibod y 1 & 2 Non-reacti ve Non-react robyn 03/22/2019 3:59 PM CDT [facility] Comment: Neither HIV-1 p24 Antigen nor HIV-1/HIV-2 Antibodies are detected. Blood BLOOD SPECIMEN / Unknown Venipuncture / Unknown 03/22/2019 3:00 PM CDT 03/22/2019 3:11 PM CDT Tiffanie Nguyen A/C TECHNICIAN-CONCERT MANAGER LAB - HEMATOLOGY ORDERA BLES Final Result [address] [phone] from Last 3 Months or Most Recently Relevant to Health Maintenance Insurance [employer] MEDICARE [place] [address] [employer] Advance Directives Documents on File Type Date Recorded Patient Undertaker Assistant Expl anation Adv Directive/Living Will/POA 10/27/2019 2:34 [...] 6:25 PM 08/19/2019 4:51 PM Care Teams Waste Water Operator Relationship Specialty Start Date End Date Ran Nuñez MD [address] [place] [address] PCP - General Family Medicine 08/30/21 Hillary Apple MD [address] [place] [address] Hematology and Oncology 03/17/19 Tony Dumont MD [facility] [place] [address] Hematology and Oncology 03/17/19 Maryjo Reinoso, ELEMENTARY SCHOOL TEACHER Aerospace Mechanic 03/17/19 Madyson Clay, PharmD 03/17/19 Dana Lala, A/C TECHNICIAN-REGULATORY AFFAIRS ASSISTANT [facility] [place] [address] Oncology 03/17/19 Tiffanie Nguyen, A/C TECHNICIAN-CONCERT MANAGER [address] [place] [address] Family Medicine 03/17/19 Cesar Tavares MD [address] [place] [address] Referring Physician Medical Oncology 03/23/19 Joy Bob 09/22/19 Tony Dumont MD [address] [place] [address] Hematology and Oncology 10/30/21 Shalini Segal MD [address] [facility] OF HEMATOLOGY [place] [address] Hematology Technician/Oncologist Hematology and Oncology 10/30/21 Stefanie Burns, ROSEMARY Registered Nurse 10/30/21 Fatemeh Bolaños, RN Registered Nurse 10/30/21 Chandana Lu MD [address] [place] [address] Orthopedic Surgery 03/30/24
--- OUTSIDE RECORDS SUMMARY | 2025-06-01 12:31 | XMS_ITS | Encounter Summary ---
Author Organization [facility] Address [address] [facility] [place] [address] Care Team Providers Care Alarm Mechanic Name Role Phone Hillary Apple MD Unavailable [phone] Bill Ferrera MD Unavailable [phone] Tony Dumont MD Unavailable [phone] Shalini Segal MD Unavailable [phone] Karie Jones RN Unavailable Unavailable Maryjo Reinoso LCSW Unavailable Unavailab Madyson Nicolas PharmD Unavailable Unavaila Dana Galicia TALENT ACQUISITION PROGRAM MANAGER-ACCOUNTING FILE CLERK Unavailable [phone] Mckinley SilverC Unavailable Unavail able Patrick, Lara TALENT ACQUISITION PROGRAM MANAGER-ASSISTANT DIRECTOR OF ADMISSIONS Unavailable [phone] Stephanie Mahoney RN Unavailable Unavailable Alycia Galvan RN Unavailable UnavailRan Mejía MD Primary Care Provider Cesar Tavares MD Unavailable [phone] Karie Jones RN Unavailable Unavailable Joy Bob Unavailable Fanta Addison Weinstein PharmD Unavailable Unavailab Alida Chang TALENT ACQUISITION PROGRAM MANAGER-ASSISTANT DIRECTOR OF ADMISSIONS Primary Care Provider Ran Nuñez MD Primary Care Provider Tony Dumont MD Unavailable [phone] Shalini Segal MD Unavailable Stefanie Burns RN Unavailable Unavaila Fatemeh Kelly RN Unavailable Unavailable Glenn Hernandez MD Unavailable Chandana Lu MD Unavailable Encounter Details Date Type Department Care Team (Late st Contact Info) Description 03/23/2019 Lab Requisition [facility] Care Pathology Lab [address] [place] [address] Ulises Howell MD [address] [place], [place] [id number] Non-Hodgkin lymphoma Social History Tobacco Use Types Packs/Day Years Used Date Smoking Tobacco: Never Assessed Sex and Gender Information Value Date Recorded Sex Assigned at Male 03/27/2022 11:34 AM CDT Legal 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 BRANCH BILLING PAYROLL CLERK Gender Identity Male 03/27/2022 11:34 AM CDT [...] AM CDT) Case Report Flow Cytometry Case: [id number] Authorizing Provider: Ulises Howell MD Collected: 03/23/2019 10:40 AM Ordering Location: [facility] Care Pathology Lab Received: 03/23/2019 01:04 PM Pathologist: Alecia Neri MD Specimen: Bone Marrow 03/24/2019 11:14 AM CDT U PATHOLOGY LAB Final Diagnosis Bone marrow, flow cytometric immunophenotypic analysis: - 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 - See interpretation. 03/24/2019 [...] flow cytometry specimen is reviewed for quality tester purposes. In summary, the bone marrow specimen shows evidence of involvement by a CD5-negative, [id number] mature B-cell lymphoma. Correlation with additional clinical information, the concurrent bone marrow biopsy specimen, and relevant cytogenetic/molecu lar testing is required for further classification. KR 03/24/2019 11:14 AM [facility] PATHOLOGY LAB Flow Cytometry Results Differential Result Comment Flow Cell Count /uL 30,000 Total Viability % 95.0 Lymphocytes % 11 Dim CD45 Region % 3 Monocytes % 3 Granulocytes % 80 03/24/2019 11:14 AM [facility] Reason for test Non-Hodgkin lymphoma 202.80 03/24/2019 11:14 AM [facility] PATHOLOGY LAB Client Specimen ID # [id number] 03/24/2019 11:14 AM [facility] PATHOLOGY LAB Number of markers 13 were performed. A-1 Flow CD3 A-3 Flow CD10 A-5 Flow CD20 A-6 Flow CD23 A-11 Flow CD25 A-12 Flow CD103 A-13 Flow CD11c A-2 Flow CD5 A-4 Flow CD19 A-7 Flow CD34 A-8 Flow CD45 A-9 Orangetree+CD19+ A-10 Lambda+CD19+ 03/24/2019 11:14 AM [facility] PATHOLOGY LAB Disclaimer Test performed at [facility], [address] [place] [address], [address]. *The established laboratory minimum viability is 70%. [...] LAB Embedded Images 9 11:14 AM CDT [facility] PATHOLOGY LAB Pathology/Cytolo gy BONE MARROW SPECIMEN / Unknown 03/23/2019 10:40 AM CDT 03/23/2019 1:04 PM CDT Ulises Howell MD LAB - PATHOLOGY/CYTOLOGY ORDER CARROLL Final Result Performing Organization Address City/State/[facility] Co de Phone Number [facility] PATHOLOGY LAB [address] [phone] documented in this encounter Visit Diagnoses Diagnosis [...] COVID-19 Confirmed 03/06/2020 07/14/2020 0 4:33 AM BRANCH BILLING PAYROLL CLERK COVID-19 Under Investigation 03/07/2020 03/07/2020 03/09/2020 8:54 AM CDT COVID-19 Under Investigation 03/29/2020 03/29/2020 03/30/2020 9:42 AM CDT COVID-19 Confirmed 08/31/2020 08/31/2020 1 4:34 AM BRANCH BILLING PAYROLL CLERK COVID-19 Confirmed 09/28/2020 09/28/2020 1 4:33 AM BRANCH BILLING PAYROLL CLERK COVID-19 Under Investigation 11/16/2020 11/16/2020 11/16/2020 6:52 PM CDT COVID-19 Confirmed 11/16/2020 11/16/2020 1 4:35 AM CDT COVID-19 Under Investigation 12/20/2020 12/20/2020 12/20/2020 6:23 PM CDT COVID-19 Under Investigation 04/21/2021 04/21/2021 2021 6:42 AM CDT documented as of this encounter Care Teams Alarm Mechanic Relationship Specialty Start Date End Date Ran Nuñez MD [address] [place] [address] PCP - General Family Medicine 03/22/19 12/22/20 Alida Marshall APRN-ASSISTANT DIRECTOR OF ADMISSIONS [address] [place] [address] OF HEMATOLOGY & [place] [address] PCP - General Family Medicine 12/23/20 08/29/21 Ran Nuñez MD [address] [place] [address] PCP - General Family Medicine 08/30/21 [place] [address] [place] [address] [facility] 03/04/23 08/21/23 Hillary Apple MD [address] [place] [address] Hematology and Oncology 03/17/19 Bill Ferrera MD [address] [place] [address] Hematology and Oncology 03/17/19 08/27/21 Tony Dumont MD [address] [place] [address] Hematology and Oncology 03/17/19 Shalini Segal MD [facility] [place] [address] Hematology and Oncology 03/17/19 09/29/19 Karie Jones, RN Registered Nurse 03/17/19 09/21/19 Maryjo Reinoso, [facility] Call Out Operator 03/17/19 Madyson Clay, PharmD 03/17/19 Dana Lala, TALENT ACQUISITION PROGRAM MANAGER-ACCOUNTING FILE CLERK [address] [place] [address] [address]nd [place] [address] Oncology 03/17/19 Mckinley Silver PA-C [address] [place] [address] [place] [address] Physician Veterinary Receptionist 03/17/19 09/08/19 Tiffanie Nguyen, TALENT ACQUISITION PROGRAM MANAGER-ASSISTANT DIRECTOR OF ADMISSIONS [address] [place] [address] [place] [address] Family Medicine 03/17/19 Stephanie Mahoney, RN Registered Nurse 03/17/19 10/29/21 Alycia Galvan, RN 03/17/19 10/29/21 Cesar Tavares MD [address] [place] [address] Referring Physician Medical Oncology 03/23/19 Karie Jones, RN Registered Nurse 06/08/19 10/29/21 Joy Bob 09/22/19 Addison Shea, PharmD Pharmacist 09/22/19 10/29/21 Tony Dumont MD [address] [place] [address] Hematology and Oncology 10/30/21 Shalini Segal MD [address] [facility] OF HEMATOLOGY [place] [address] Counter Weigher/Oncologis t Hematology and Oncology 10/30/21 Stefanie Burns, RN Registered Nurse 10/30/21 Fatemeh Bolaños RN Registered Nurse 10/30/21 Chandana Lu MD [address] [place] [address] Orthopedic Surgery 03/30/24 documented as of this encounter
--- OUTSIDE RECORDS SUMMARY | 2025-06-01 12:31 | XMS_ITS | Clinical Summary ---
Author Organization [facility] Address [address] [facility] [place] [address] Care Team Providers Care Classroom Instructor Name Role Phone Ran Nuñez MD Primary [...] 2 Active fluticasone propionate (FLONASE) 50 mcg/spray [place], Suspension nasal inhaler 2 SPRAYS IN EACH [...] Tablet 4 Active naloxone (NARCAN) 4 mg/spray [place], Non-Aerosol EMERGENCY USE ONLY: Administer 1 spray (4 mg) in one nostril one time. May repeat in alternating nostrils every 2-3 min until responsive or EMS arrives. 2 Each 3 4 Active acyclovir (ZOVIRAX) 200 mg capsule TAKE 1 CAPSULE TWICE DAILY 180 Capsule 3 5 Active methylPREDNISolon e (MEDROL DOSPACK) 4 mg Tablets, Dose Pack Use as directed 21 Tablet 5 Active Active Problems Problem Noted Date Diagnosed Date B-cell lymphoma 04/18/2017 Resolved Problems Problem Noted Date Diagnosed Date Resolved Date Lymphadenopathy 04/11/2017 06/16/2019 Encounters Date Type Department Care Team Description 04/25/2025 Orders Only [facility] Oncology and Hematology - [place] [address] [place] [address] Cesar Tavares MD 04/21/2025 2:30 PM CDT Office Visit [facility] Oncology and Hematology - [place] [address] [place] [phone] Cesar Tavares MD 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) 03/22/2025 External Device Data STL ABSTRACTION Provider, Abstract from Last 3 Months Family History Medical History Relation Name Comments Diabetes Mother Diabetes Sister 1 Relation Name Status Comments Father Mother Sister 1 Alive Sister 2 Alive Social History Tobacco Use Types Packs/Day Years Used Date Smoking Tobacco: Former Cigarettes 2 10 1 997 - 2006 Smokeless Tobacco: Current Snuff Alcohol Use Standard Drinks/Week Comments Yes 0 (1 standard drink = 0.6 oz pur e alcohol) ocass Sex and Gender Information Value Date Recorded Sex Assigned at Not on file Legal Sex Male 8:39 AM CDT Gender Identity Not on file Sexual Orientation Not on file Last Filed Vital Signs Vital Sign Reading Time Taken Comments Blood Pressure 123/96 04/21/2025 2:34 PM CDT Pulse 75 04/21/2025 2:31 PM CDT Temperature 36.7 C (98 F) 04/21/2025 2:31 PM CDT Respiratory Rate 16 04/21/2025 2:31 PM CDT Oxygen Saturation 93% 04/21/2025 2:31 PM CDT Inhaled Oxygen Concentration - - Weight 119.5 kg (263 lb 6.4 oz) 04/21/2025 2:31 PM CDT Height 171.5 cm (5' 7.5) 02/12/2022 1:19 PM CDT Body Mass Index 40.65 02/12/2022 1:19 PM CDT Plan of Treatment Upcoming Encounters Date Type Department Care Team (Late st Contact Info) Description 10/20/2025 1:15 PM CDT Office Visit [facility] Oncology and Hematology [facility] [address] [facility] [address] [place] [address] Cesar Tavares MD [address] [facility] [address] [place] [address] Health Maintenance Due Date Last Done Comments Pre-Diabetes and Diabetes Screening 1970 COLORECTAL SCREENING 2015 Colorectal Cancer Screening 2015 FIT-DNA Q 3 years 2015 FIT/FOBT Q 1 year 2015 Flex Sig/CT Colonography Q 5 years 2015 INFLUENZA VACCINE (#1) 2025 05/22/2022, 2018 COVID-19 Vaccine (6 2024-2 6 season) 2025 05/22/2022, 12/20/2021, 08/30/2021, Additional history exists DTAP/TDAP/TD VACCINES (4 - Tdap) 02/15/2031 02/15/2021, 09/28/2020, 07/14/2020 Abdominal Aortic Aneurysm (A AA) Screening Completed 07/26/2019 ZOSTER VACCINE Completed 09/28/2020, 07/14/2020 HEPATITIS B VACCINES Completed 08/30/2021, 09/28/2020, 07/14/2020 Procedures Procedure Name Priority Date/Time Associated Diagnosis Comments COMPREHENSIVE METABOLIC PANEL Routine 04/21/2025 12:05 PM CDT CBC WITH AUTODIFFERENTIAL Routine 2024 11:38 AM CDT BASIC METABOLIC PANEL Routine 04/21/2025 11:37 AM CDT from Last 3 Months Results * COMPREHENSIVE METABOLIC PANEL (04/21/2025 12:05 PM CDT) Blood us Cesar Tavares MD CHEMISTRY ORDERABLES Final Resu lt * CBC WITH AUTODIFFERENTIAL (04/21/2025 11:38 AM CDT) Blood us Cesar Tavares MD HEMATOLOGY ORDERABLES Final Res ult * BASIC METABOLIC PANEL (04/21/2025 11:37 AM CDT) Blood us Cesar Tavares MD CHEMISTRY ORDERABLES Final Resu lt from Last 3 Months [facility] Care Teams Classroom Instructor Relationship Specialty Start Date End Date Ran Nuñez MD [address] [place] [address] PCP - General Family Practice 08/15/17
[2025-06-01 13:18] LABS: Cholesterol 208 mg/dL (0-200); HDL Direct 42 mg/dL; Triglycerides 95 mg/dL (<150)
[2025-06-01 13:53] LABS: Thyroid Stimulating Hormone Reflex 0.502 uIU/mL (0.465-4.68)
[2025-06-01 13:54] LABS: Prostate Specific Antigen 2.8 ng/mL (< OR = 4.0)
[2025-06-01 14:05] LABS: Hemoglobin A1C 5.6 % (<5.7)
[2025-06-01 14:13] LABS: Vitamin B12 423.0 pg/mL (239-931)
== END 2025-06-01 10:58 | disposition home or self-care (01) ==
PROVIDERS: PCP Family Medicine; Visit Provider Nurse Practitioner Family
DX: Z12.5 Encounter for screening for malignant neoplasm of prostate (principal); R73.9 Hyperglycemia, unspecified; E78.5 Hyperlipidemia, unspecified; F32.9 Major depressive disorder, single episode, unspecified; G25.81 Restless legs syndrome; R09.02 Hypoxemia; E53.8 Deficiency of other specified B group vitamins; E55.9 Vitamin D deficiency, unspecified
CPT/HCPCS: 36415; 80061; 82306; 82607; 83036; 84153; 84443; G0103

== ENCOUNTER 2025-06-13 14:45 | Outpatient (CLI) | payer MEDICARE, SELFPAY ==
--- OUTSIDE RECORDS SUMMARY | 2022-05-31 07:30 | XMS_ITS | Continuity of Care Document ---
Author Organization [facility] Address [id number] [place] [address] [place] [address] Phone Care Team Providers Care Banking Services Advisor Name Role Phone Darcy Yao OD Unavailable Unavailable Allergies, Adverse Reactions, Alerts Substance Reaction Status Criticality No Known Allergies Active No Inform ation Medications Medication Instructions Dosage Effective Dates (start - stop) Status Comments penicillamine 250 mg capsule take 1 capsule by oral route every day on an empty stomach, 1 hour before or 2 hours after a meal 250 MG - Active acyclovir 800 mg tablet take 1 tablet by oral route every 4 hours for 10 days while awake 800 MG - Active hydrocodone 10 mg-ibuprofen 200 mg tablet take 1 tablet by oral route every 4 - 6 hours as needed not to exceed 5 tablets in 24hrs as needed 1.00 tablet - Active Lexapro 5 mg tablet take 1 tablet by oral route every day 5 MG - Active clonazepam 1 mg tablet take 1 tablet by oral route 3 times every day 1 MG - Active Procedures Procedure Date Refraction No Charge Optomap Fundus Photos 022 Office/outpatient Visit, [facility] Frames Purchases SV Plastic Sphcyl [place] +/-4d, .12-2d Oc Anti-reflective Coating Advance Directives Directive Yes / No Effective Date File Name No Information Encounters Encounter Description Practice Location Reason(s) For Visit Diagnoses Date Provider Providers Copied on Encounter Office/outpat ient Visit, [facility], [id number] [place] [address] [address], [place], [place], [id number], tel:[phone] SEC 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 [address] [place] [address], [address], [place], [place], [id number], . tel:[phone] Referring Provider: Darcy Levy, [address] [place] [address] [address], [place], [address] . tel:[phone] [facility], [address] [place], [place] [address], [place], [place], [id number], tel:[phone] SEC Andrea Patel No Information [facility] . [address] [facility], [address], [place], [place], [address], . tel:[phone] Referring Provider: Darcy Levy, [address] [place] [address] [address], [place], [address] . tel:[phone] sulting Provider: Alan Mora, [address] [place], [address] . tel:[phone] Family History Family Member Type Diagnosis Age At Onset No Information Payers Payer name Insurance type Covered alliance party ID Radha laughlin(s) Aetna [id number] Social History Type Description Quantity Date Captured Comments Alcohol Use Details Caffeine Use Details Tobacco Use Status Chews tobacco Smoking Status Unknown if ever smoked Non-Smoking Tobacco Use Details Chewing: No Details Available Chewing: No Details Available Sex Male Chief Complaint And Reason For Visit From encounter dated 05/31/2022 13:30'. 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 Description: The 52 year old patient presents for evaluation ofNP complete exam in the right eye and left eye. Pt c/o of vision is not as sharp as it used to be despite what [employer] told him years ago, patient has been battling cancer/chemo and lost track of his eye care. Pt is not currently on gtts. Pt is looking for an established routine with an eye doctor. 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 Pt c/o of vision is not as sharp as it used to be despite what [employer] told him years ago, patient has been battling cancer/chemo and lost track of his eye care. Pt is not currently on gtts. Pt is looking for an established routine with an eye doctor. Functional Status Date Functional Assessmen t No Information Instructions Date Instruction Additional Infor wally Impression/Plan Assessments Type Assessment Date assessment Dry eye syndrome of bilateral la crimal glands assessment Myopia, bilateral Patient Care Teams Name Effective Dates (start - stop) Status Members No Information
--- NOTE | ~2025-06-13 | US_ITS ---
EXAMINATION: US renal BI DATE: 06/13/2025 16:09 INDICATION: Renal stone TECHNIQUE: Multiple ultrasound grayscale images of the kidneys were obtained. COMPARISON: CT dated 09/14/2024 FINDINGS: The right kidney measures 10.5 x 4.5 x 4.7 cm. The left kidney measures 11.6 x 4.9 x 4.8 cm. The kidneys demonstrate normal echogenicity. There is no hydronephrosis in either kidney. No evident shadowing renal stones identified. The bladder is normal with bilateral ureteral jets visualized on color Doppler.. IMPRESSION: 1. Normal kidneys without hydronephrosis. Reviewed, dictated and finalized at location A. HOL LAW ENFORCEMENT AGENT
--- OUTSIDE RECORDS SUMMARY | 2025-06-13 14:51 | XMS_ITS | Encounter Summary ---
Author Organization [facility] Address [address] [facility] [place] [address] Care Team Providers Care Certified Anesthesiologist Assistant Name Role Phone Hillary Apple MD Unavailable [phone] Tony Dumont MD Unavailable [phone] Maryjo Reinoso AUTOMATION QA TESTER Unavailable Unavailab Madyson Nicolas PharmD Unavailable Unavailab Dana Key COMMUNITY REINVESTMENT ACT OFFICER-RN LABOR DELIVERY Unavailable + [phone] Tiffanie Nguyen COMMUNITY REINVESTMENT ACT OFFICER-WELLNESS NURSE Unavailable [phone] Cesar Tavares MD Unavailable [phone] Joy Bob Unavailable Fanta Ran Augustine MD Primary Care Provider Tony Dumont MD Unavailable [phone] Shalini Segal MD Unavailable [phone] Stefanie Burns RN Unavailable Unavaila Fatemeh Kelly RN Unavailable Unavailable Glenn Hernandez MD Unavailable [phone] Chandana Lu MD Unavailable [phone] Reason for Visit * Reason Onset Date Comments MEDICATION REFILL 12/24/2021 Encounter Details Date Type Department Care Team (Late st Contact Info) Description 12/24/2021 Refill [facility] [address] [place] [address] Tiffanie Nguyen COMMUNITY REINVESTMENT ACT OFFICER-WELLNESS NURSE [address] [place] [address] MEDICATION REFILL Social History Tobacco Use Types [...] AM CDT 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 Sanitation Worker Cleaning Machinery 03/17/19 Madyson Clay, PharmD 03/17/19 Dana Lala, COMMUNITY REINVESTMENT ACT OFFICER-RN LABOR DELIVERY [address] [facility] [address]nd [place] [address] Oncology 03/17/19 Tiffanie Nguyen, COMMUNITY REINVESTMENT ACT OFFICER-WELLNESS NURSE [address] [facility] [address] [place] [address] Family Medicine 03/17/19 Cesar Tavares MD [address] [place], [place] [address]TA [facility] [address]nd [place] [address] Referring Physician Medical Oncology 03/23/19 Joy Bob 09/22/19 Tony Dumont MD [address] [place] [phone] Hematology and Oncology 10/30/21 Shalini Segal MD [address] [place] [address] OF HEMATOLOGY & [place] [address] Gold Assayer/Oncologist Hematology and Oncology 10/30/21 Stefanie Burns, RN Registered Nurse 10/30/21 Fatemeh Bolaños, RN Registered Nurse 10/30/21 Chandana Lu MD [address] [place] [address] Orthopedic Surgery 03/30/24 documented as of this encounter
--- OUTSIDE RECORDS SUMMARY | 2025-06-13 14:51 | XMS_ITS | Encounter Summary ---
Author Organization [facility] Address [address] [facility] [place] [address] Care Team Providers Care Software Sales Executive Name Role Phone Hillary Apple MD Unavailable [phone] Tony Dumont MD Unavailable [phone] Maryjo Reinoso E MARKETING SPECIALIST Unavailable Unavailab Madyson Nicolas PharmD Unavailable Unavailab Dana Key GREEN ENERGY MARKETING ANALYST-TAKE DOWN INSPECTOR Unavailable + [phone] Tiffanie Nguyen GREEN ENERGY MARKETING ANALYST-MODEL MAKER SCALE Unavailable [phone] Cesar Tavares MD Unavailable [phone] Joy Bob Unavailable Fanta Ran Augustine MD Primary Care Provider Tony Dumont MD Unavailable [phone] Shalini Segal MD Unavailable [phone] Stefanie Burns RN Unavailable Unavaila Fatemeh Kelly RN Unavailable Unavailable Glenn Hernandez MD Unavailable [phone] Chandana Lu MD Unavailable [phone] Reason for Visit * Reason Onset Date Comments MEDICATION REFILL 04/24/2023 Encounter Details Date Type Department Care Team (Late st Contact Info) Description 04/24/2023 Refill [facility] [address] [place] [address] Tiffanie Nguyen GREEN ENERGY MARKETING ANALYST-MODEL MAKER SCALE [address] [place] [address] MEDICATION REFILL Social History Tobacco Use Types [...] AM CDT 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 Gender Identity Male 03/27/2022 11:34 AM [...] (RLS) documented in this encounter Care Teams Software Sales Executive Relationship Specialty Start Date End Date Ran Nuñez MD [address] [place] [address] PCP - General Family Medicine 08/30/21 [place] [address] [place] [phone] PCP - [facility] 03/04/23 08/21/23 Hillary Apple MD [facility] [place] [address] Hematology and Oncology 03/17/19 Tony Dumont MD [address] [place] [address] Hematology and Oncology 03/17/19 Maryjo Reinoso, [facility] Classer 03/17/19 Madyson Clay, PharmD 03/17/19 Dana Lala, GREEN ENERGY MARKETING ANALYST-TAKE DOWN INSPECTOR [address] [facility] 2nd [place] [address] Oncology 03/17/19 Tiffanie Nguyen, GREEN ENERGY MARKETING ANALYST-MODEL MAKER SCALE [address] [facility] 2nd [place] [address] Family Medicine 03/17/19 Cesar Tavares MD [facility] 2nd [place] [address] Referring Physician Medical Oncology 03/23/19 Joy Bob 09/22/19 Tony Dumont MD [address] [place] [address] Hematology and Oncology 10/30/21 Shalini Segal MD [address] [place] [address] OF HEMATOLOGY & [place] [address] Deli Bakery Clerk/Oncologist Hematology and Oncology 10/30/21 Stefanie Burns, RN Registered Nurse 10/30/21 Fatemeh Bolaños RN Registered Nurse 10/30/21 Chandana Lu MD [address] [place] [address] Orthopedic Surgery 03/30/24 documented as of this encounter
--- OUTSIDE RECORDS SUMMARY | 2025-06-13 14:51 | XMS_ITS | Encounter Summary ---
Author Organization [facility] [employer] Address [address] [place] [address] Care Team Providers Care Intermodal Dispatcher Name Role Phone Ran Nuñez MD Primary Care Provider Encounter Details Date Type Department Care Team (Late Contact Info) Description 12/19/2022 Abstract [facility] Oncology and Hematology [facility] [address] [place] [address] Chuck Aguilera, ROSEMARY Social History [...] Upcoming Encounters Date Type Department Care Team ([facility] Contact Info) Description 10/20/2025 1:15 PM CDT Office Visit [facility] Oncology and Hematology Mina [address] [place] [address] Cesar Tavares MD [address] [facility] [address] [place] [address] documented as of this encounter Visit Diagnoses Not on filedocumented in this encounter Care Teams Intermodal Dispatcher Relationship Specialty Start Date End Date Ran Nuñez MD [address] [place] [address] PCP - General Family Practice 08/15/17 documented as of this encounter
--- OUTSIDE RECORDS SUMMARY | 2025-06-13 14:51 | XMS_ITS | Clinical Summary ---
Author Organization [facility] Address [address] [facility] [place] [address] Care Team Providers Care Collection Agent Name Role Phone Ran Nuñez MD Primary Care Provider Allergies Active Allergy Reactions Criticality Noted Date Comments Adhesive Tape-Silicones Other (See Comments),Rash Medium 08/17/2019 Electrodes -- welps where stickers are Also, use paper tape Medications acetaminophen (TYLENOL) 325 mg tablet Take 650 mg by mouth every 6 hours as needed. 08/18/19 20 Active rOPINIRole (REQUIP) 0.25 mg tablet Take 0.25 mg by mouth. 10/29/19 20 Active albuterol sulfate 90 mcg/Actuation inhaler Take 2 Puffs by inhalation every 6 hours as needed. 04/05/20 20 Active budesonide-formo teroL (SYMBICORT) 160-4.5 mcg/actuation HFA Aerosol Inhaler Take 2 Puffs by inhalation 2 times daily. 09/28/19 21 Active cholecalciferol, vitamin D3, 1,000 unit Take 2,000 Units by mouth daily. 11/04/19 21 Active clonazePAM (KlonoPIN) 1 mg tablet Take 1 mg by mouth. 08/15/19 22 Active fluticasone propionate (FLONASE) 50 mcg/spray Riley, Suspension nasal inhaler 2 SPRAYS IN EACH NOSTRIL Q DAY 06/02/20 20 Active escitalopram oxalate (LEXAPRO) 20 mg tablet Take 1 Tablet by mouth daily. 08/10/19 22 Active cyanocobalamin (VITAMIN B-12) 100 mcg tablet Take 100 mcg by mouth daily. Active ondansetron (Zofran) 8 mg Tablet Take 1 Tablet (8 mg) by mouth every 8 hours as needed for Nausea/Emesis. 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 60 Tablet 3 11/10/19 24 Active HYDROcodone-acet aminophen (NORCO) 5-325 mg tabletIndication s:Non-Hodgkin's lymphoma, unspecified body region, unspecified non-Hodgkin lymphoma type (CMS/HCC) Take 1 Tablet by mouth every 6 hours as needed for Pain, Moderate. Max Daily Amount: 4 Tablets 30 Tablet 02/24/20 24 Active naloxone (NARCAN) 4 mg/spray Riley, Non-Aerosol EMERGENCY USE ONLY: Administer 1 spray (4 mg) in one nostril one time. May repeat in alternating nostrils every 2-3 min until responsive or EMS arrives. 2 Each 3 02/24/20 24 Active methylPREDNISolo ne (MEDROL DOSPACK) 4 mg Tablets, Dose Pack Use as directed 21 Tablet 04/21/20 25 Active acyclovir (ZOVIRAX) 200 mg capsule TAKE 1 CAPSULE TWICE DAILY 180 Capsule 3 06/02/20 25 Active acyclovir (ZOVIRAX) 200 mg capsule TAKE 1 CAPSULE TWICE DAILY 180 Capsule 3 08/10/19 25 2024 Discontinued Active Problems Problem Noted Date Diagnosed Date B-cell lymphoma 04/18/2017 Resolved Problems Problem Noted Date Diagnosed Date Resolved Date Lymphadenopathy 04/11/2017 06/16/2019 Encounters Date Type Department Care Team Description 06/08/2025 External Device Data STL ABSTRACTION Provider, Abstract 06/02/2025 Refill [facility] Oncology and Hematology - [place] [address] [place] [address] Cesar Tavares MD 04/25/2025 Orders Only [facility] Oncology and Hematology - [place] [address] [place] [address] Cesar Tavares MD 04/21/2025 2:30 PM CDT Office Visit [facility] Oncology and Hematology [place] [address] [facility] [address] [place] [address] Cesar Tavares MD Diffuse large B-cell lymphoma [...] Smoking Tobacco: Former Cigarettes 2 10 1 - 2006 Smokeless Tobacco: Current Snuff Alcohol [...] Description 10/20/2025 1:15 PM CDT Office Visit [facility] Oncology and Hematology Mina [address] [place] [address] Cesar Tavares MD [address] [facility] [employer] [address] [place] [address] Health Maintenance Due Date Last Done Comments Pre-Diabetes and Diabetes Screening 1970 COLORECTAL SCREENING 2015 Colorectal Cancer Screening 2015 FIT-DNA Q 3 years 2015 FIT/FOBT Q 1 year 2015 Flex Sig/CT Colonography Q 5 years 2015 INFLUENZA VACCINE (#1) 2025 05/22/2022, 2018 COVID-19 Vaccine (6 - 2024-2 6 season) 2025 05/22/2022, 12/20/2021, 08/30/2021, [...] Resu lt from Last 3 Months Insurance [employer] PPO MCR Care Teams Collection Agent Relationship Specialty Start Date End Date Ran Nuñez MD [address] [place] [address] PCP - General Family Practice 08/15/17
--- OUTSIDE RECORDS SUMMARY | 2025-06-13 14:51 | XMS_ITS | Encounter Summary ---
Author Organization [facility] Address [address] [facility] [place] [address] Care Team Providers Care Ekg Manager Name Role Phone Hillary Apple MD Unavailable [phone] Tony Dumont MD Unavailable [phone] aMryjo Reinoso LEAD SHAREPOINT DEVELOPER Unavailable Unavailab Madyson Nicolas PharmD Unavailable Unavailab Dana Key SENIOR JAVASCRIPT DEVELOPER-ENVIRONMENTAL SERVICES DIRECTOR Unavailable + [phone] Patrick Lara SENIOR JAVASCRIPT DEVELOPER-TEXTILE EXAMINER Unavailable [phone] Cesar Tavares MD Unavailable [phone] Joy Bob Unavailable Fanta Ran Augustine MD Primary Care Provider Tony Dumont MD Unavailable [phone] Shalini Segal MD Unavailable [phone] Stefanie Burns RN Unavailable Unavaila Fatemeh Kelly RN Unavailable Unavailable Glenn Hernandez MD Unavailable [phone] Chandana Lu MD Unavailable [phone] Reason for Visit * Reason Onset Date Comments MEDICATION REFILL 08/13/2023 Encounter Details Date Type Department Care Team (Late st Contact Info) Description 08/13/2023 Refill [facility] [address] [place] [address] Hillary Apple MD [address] [facility] [place] [address] MEDICATION REFILL Social History Tobacco Use Types [...] AM CDT Legal 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 Gender Identity Male 03/27/2022 11:34 AM CDT [...] on filedocumented in this encounter Care Teams Ekg Manager Relationship Specialty Start Date End Date Ran Nuñez MD [address] [place] [phone] PCP - General Family Medicine 08/30/21 [place] [address] [facility] [place] [address] PCP - [facility] 03/04/23 08/21/23 Hillary Apple MD [address] [place] [address] Hematology and Oncology 03/17/19 Tony Dumont MD [facility] [place] [address] Hematology and Oncology 03/17/19 Maryjo Reinoso, LEAD SHAREPOINT DEVELOPER X Ray Equipment Mechanic 03/17/19 Madyson Clay, PharmD 03/17/19 Dana Lala, SENIOR JAVASCRIPT DEVELOPER-ENVIRONMENTAL SERVICES DIRECTOR [facility] 2nd [place] [address] Oncology 03/17/19 Tiffanie Nguyen, SENIOR JAVASCRIPT DEVELOPER-TEXTILE EXAMINER [address] [place], [place] [address]TA [facility] 2nd [place] [address] Family Medicine 03/17/19 Cesar Tavares MD [address] [place], [place] [address]TA [facility] 2nd [place] [address] Referring Physician Medical Oncology 03/23/19 Joy Bob 09/22/19 Tony Dumont MD [address] [place] [address] Hematology and Oncology 10/30/21 Shalini Segal MD [address] [place] [address] OF HEMATOLOGY & [place] [address] Land Surveyor Manager/Oncologist Hematology and Oncology 10/30/21 Stefanie Burns, RN Registered Nurse 10/30/21 Fatemeh Bolaños RN Registered Nurse 10/30/21 Chandana Lu MD [address] [facility] [address] [place] [address] Orthopedic Surgery 03/30/24 documented as of this encounter
--- OUTSIDE RECORDS SUMMARY | 2025-06-13 14:51 | XMS_ITS | Encounter Summary ---
Author Organization [facility] Address [address] [facility] [place] [address] Care Team Providers Care Car Hopper Name Role Phone Hillary Apple MD Unavailable [phone] Bill Ferrera MD Unavailable [phone] Tony Dumont MD Unavailable [phone] Shalini Segal MD Unavailable [phone] Karie Jones RN Unavailable Unavailable Maryjo Reinoso INSURANCE CLAIMS CLERK Unavailable Unavailab Madyson Nicolas PharmD Unavailable Unavailab Dana Kye EVALUATION ASSISTANT-HANDICAPPER HARNESS RACING Unavailable + [phone] Mckinley SilverC Unavailable Unavail able Patrick, Lara EVALUATION ASSISTANT-CARGO HANDLER Unavailable [phone] Stephanie Mahoney RN Unavailable Unavailable Alycia Galvan RN Unavailable UnavailRan Mejía MD Primary Care Provider Cesar Tavares MD Unavailable [phone] Karie Jones RN Unavailable Unavailable Joy Bob Unavailable Fanta Addison Weinstein PharmD Unavailable Unavailab Alida Chang EVALUATION ASSISTANT-CARGO HANDLER Primary Care Provider Ran Nuñez MD Primary Care Provider Tony Dumont MD Unavailable [phone] Shalini Segal MD Unavailable [phone] Stefanie Burns RN Unavailable Unavaila Fatemeh Kelly RN Unavailable Unavailable Glenn Hernandez MD Unavailable [phone] Chandana Lu MD Unavailable Encounter Details Date Type Department Care Team (Late st Contact Info) Description 03/23/2019 Lab Requisition [facility] Care Pathology Lab [address] [place] [address] Ulises Howell MD [address] [facility] [address] [place] [address] Non-Hodgkin lymphoma Social History Tobacco Use Types Packs/Day Years Used Date Smoking Tobacco: Never Assessed Sex and Gender Information Value Date Recorded Sex Assigned at Male 03/27/2022 11:34 AM CDT Legal 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 INSURANCE AUDITOR Gender Identity Male 03/27/2022 11:34 AM CDT [...] AM CDT) Case Report Flow Cytometry Case: [id number] Authorizing Provider: Ulises Howell MD Collected: 03/23/2019 10:40 AM Ordering Location: [facility] Care Pathology Lab Received: 03/23/2019 01:04 PM Pathologist: Alecia Neri MD Specimen: Bone Marrow 03/24/2019 11:14 AM CDT [facility] PATH[facility] Final Diagnosis Bone marrow, flow cytometric immunophenotypic analysis: - 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 - See interpretation. 03/24/2019 11:14 AM CDT [facility] PATHOLOGY LAB at 1114 CDT Flow Cytometry [...] the flow cytometry specimen is reviewed for chief vendor quality purposes. In summary, the bone marrow specimen shows evidence of involvement by a CD5-negative, [id number]-gtkzzego mature B-cell lymphoma. Correlation with additional clinical information, the concurrent bone marrow biopsy specimen, and relevant cytogenetic/molecu lar testing is required for further classification. KR 03/24/2019 11:14 AM [facility] PATHOLOGY LAB Flow Cytometry Results Differential Result Comment Flow Cell Count /uL 30,000 Total Viability % 95.0 Lymphocytes % 11 Dim CD45 Region % 3 Monocytes % 3 Granulocytes % 80 03/24/2019 11:14 AM [facility] PATHOLOGY LAB Reason for test Non-Hodgkin lymphoma 202.80 03/24/2019 11:14 AM [facility] PATHOLOGY LAB Client Specimen ID # [id number] 03/24/2019 11:14 AM [facility] PATHOLOGY LAB Number of markers 13 were performed. A-1 Flow CD3 A-3 Flow CD10 A-5 Flow CD20 A-6 Flow CD23 A-11 Flow CD25 A-12 Flow CD103 A-13 Flow CD11c A-2 Flow CD5 A-4 Flow CD19 A-7 Flow CD34 A-8 Flow CD45 A-9 [place]+CD19+ A-10 Lambda+CD19+ 03/24/2019 11:14 AM [facility] PATHOLOGY LAB Disclaimer Test performed at [facility], [address] [place] [address], [address]. *The established laboratory minimum viability is 70%. [...] LAB Embedded Images 9 11:14 AM CDT [facility] PATHOLOGY LAB Pathology/Cytolo gy BONE MARROW SPECIMEN / Unknown 03/23/2019 10:40 AM CDT 03/23/2019 1:04 PM CDT Ulises Howell MD LAB - PATHOLOGY/CYTOLOGY ORDER [place]ARR[place] Final Result Performing Organization Address City/State/[facility] Co de Phone Number [facility] PATHOLOGY LAB [address] [phone] documented in this encounter Visit Diagnoses Diagnosis [...] COVID-19 Confirmed 03/06/2020 07/14/2020 0 4:33 AM INSURANCE AUDITOR COVID-19 Under Investigation 03/07/2020 03/07/2020 03/09/2020 8:54 AM CDT COVID-19 Under Investigation 03/29/2020 03/29/2020 03/30/2020 9:42 AM CDT COVID-19 Confirmed 08/31/2020 08/31/2020 1 4:34 AM INSURANCE AUDITOR COVID-19 Confirmed 09/28/2020 09/28/2020 1 4:33 AM INSURANCE AUDITOR COVID-19 Under Investigation 11/16/2020 11/16/2020 11/16/2020 6:52 PM CDT COVID-19 Confirmed 11/16/2020 11/16/2020 1 4:35 AM CDT COVID-19 Under Investigation 12/20/2020 12/20/2020 12/20/2020 6:23 PM CDT COVID-19 Under Investigation 04/21/2021 04/21/2021 2021 6:42 AM CDT documented as of this encounter Care Teams Car Hopper Relationship Specialty Start Date End Date Ran Nuñez MD [address] [place] [address] PCP - General Family Medicine 03/22/19 12/22/20 Alida Marshall APRN-CARGO HANDLER [facility]EMAT[facility]Y [place] [address] PCP - General Family Medicine 12/23/20 08/29/21 Ran Nuñez MD [address] [place] [address] PCP - General Family Medicine 08/30/21 [place] [address] [place] [address] PCP - [facility] 03/04/23 08/21/23 Hillary Apple MD [address] [place] [address] Hematology and Oncology 03/17/19 Bill Ferrera MD [address] [place] [address] Hematology and Oncology 03/17/19 08/27/21 Tony Dumont MD [address] [place] [address] Hematology and Oncology 03/17/19 Shalini Segal MD [facility] [place] [address] Hematology and Oncology 03/17/19 09/29/19 Karie Jones, RN Registered Nurse 03/17/19 09/21/19 Maryjo Reinoso, INSURANCE CLAIMS CLERK Nursery Attendant 03/17/19 Madyson Clay, PharmD 03/17/19 Dana Lala, EVALUATION ASSISTANT-HANDICAPPER HARNESS RACING [address] [place] [address] 2nd [place] [address] Oncology 03/17/19 Mckinley Silver PA-C [address] [place] [address] [place] [address] Physician Plasma Center Nurse 03/17/19 09/08/19 Tiffanie Nguyen, EVALUATION ASSISTANT-CARGO HANDLER [address] [place] [address] [place] [address] Family Medicine 03/17/19 Stephanie Mahoney, RN Registered Nurse 03/17/19 10/29/21 Alycia Galvan, ROSEMARY 03/17/19 10/29/21 Cesar Tavares MD [address] [place] [address] Referring Physician Medical Oncology 03/23/19 Karie Jones, RN Registered Nurse 06/08/19 10/29/21 Joy Bob 09/22/19 Addison Shea, PharmD Pharmacist 09/22/19 10/29/21 Toyn Dumont MD [address] [place] [address] Hematology and Oncology 10/30/21 Shalini Segal MD [address] [facility] & [place] [address] Stamping Die Maker Bench/Oncologis t Hematology and Oncology 10/30/21 Stefanie Burns, RN Registered Nurse 10/30/21 aFtemeh Bolaños RN Registered Nurse 10/30/21 Chandana Lu MD [address] [place] [address] Orthopedic Surgery 03/30/24 documented as of this encounter
--- OUTSIDE RECORDS SUMMARY | 2025-06-13 14:51 | XMS_ITS | Encounter Summary ---
Author Organization [facility] [employer] [facility] Address [address] [place] [address] Care Team Providers Care Medical Surgical Tech Name Role Phone Ran Nuñez MD Primary Care Provider Reason for Visit * Reason Onset Date Comments Med Change Request 12/13/2022 Encounter Details Date Type Department Care Team (Late st Contact Info) Description 12/13/2022 Telephone [facility] Oncology and Hematology - [place] [address] [facility] [address] [place] [address] Cesar Tavares MD [address] [facility] [address] [place] [address] Med Change Request Social History [...] Description 10/20/2025 1:15 PM CDT Office Visit [facility] Oncology and Hematology - [place] [address] [facility] [address] [place] [address] Cesar Tavares MD [address] [facility] [address] [place] [address] documented as of this encounter Visit Diagnoses Diagnosis 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
--- OUTSIDE RECORDS SUMMARY | 2025-06-13 14:51 | XMS_ITS | Encounter Summary ---
Author Organization [facility] Address [address] [place] [place] [address] Care Team Providers Care Special Services Agent Name Role Phone Hillary Apple MD Unavailable [phone] Bill Ferrera MD Unavailable [phone] Tony Dumont MD Unavailable [phone] Maryjo Reinoso AIR DRILL OPERATOR Unavailable Unavailab Madyson Nicolas PharmD Unavailable Unavailab Dana Key SUPERVISING FILM OR VIDEOTAPE EDITOR-TRACTOR DISTRIBUTOR Unavailable + [phone] Tiffanie Nguyen SUPERVISING FILM OR VIDEOTAPE EDITOR-SIGNAL WORKER Unavailable [phone] Stephanie Mahoney RN Unavailable Unavailable Alycia Galvan RN Unavailable UnavailRan Mejía MD Primary Care Provider Cesar Tavares MD Unavailable [phone] Karie Jones RN Unavailable Unavailable Joy Bob Unavailable Fanta Addison Weinstein PharmD Unavailable Unavailab Alida Chang SUPERVISING FILM OR VIDEOTAPE EDITOR-SIGNAL WORKER Primary Care Provider Ran Nuñez MD Primary Care Provider Tony Dumont MD Unavailable [phone] Shalini Segal MD Unavailable [phone] Stefanie Burns RN Unavailable Unavaila Fatemeh Kelly RN Unavailable Unavailable Glenn Hernandez MD Unavailable Chandana Lu MD Unavailable Reason for Visit * Reason Onset Date Comments MEDICATION REFILL 10/02/2020 Encounter Details Date Type Department Care Team (Late st Contact Info) Description 10/02/2020 Refill [facility] [address] [place] [address] Hillary Apple MD [address] [facility] [place] [address] MEDICATION REFILL Social History Tobacco Use Types [...] AM CDT Legal 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 CASTING AND PASTING SUPERVISOR Gender Identity Male 03/27/2022 11:34 AM CDT Sexual Orientation Straight 03/27/2022 11 :34 AM CDT COVID-19 Exposure Response Date Recorded In the last month, have you been in contact with someone who was confirmed or suspected to have Coronavirus / COVID-19? No / Unsure 09/28/2020 1:10 PM CASTING AND PASTING SUPERVISOR documented as of this encounter Functional Status * Is person deaf or have serious hearing difficulty? Answer Date of Assessment Author No 02/25/2020 10:12 PM DOUGLAST Rylee Coreas RN * Is person blind or have serious difficulty seeing? Answer Date of Assessment Author No 02/25/2020 10:12 PM CDT Rylee Coreas RN * Does person have serious difficulty walking/climbing stairs? Answer Date of Assessment Author No 02/25/2020 10:12 PM Rylee Last RN * Does person have difficulty dressing/bathing? Answer Date of Assessment Author No 02/25/2020 10:12 PM Rylee Last RN * Does person have difficulty doing [...] Time COVID-19 Confirmed 09/28/2020 09/28/2020 4:33 AM CASTING AND PASTING SUPERVISOR COVID-19 Under Investigation 11/16/2020 11/16/2020 11/16/2020 6:52 PM CDT COVID-19 Confirmed 11/16/2020 11/16/2020 4:35 AM CDT COVID-19 Under Investigation 12/20/2020 12/20/2020 12/20/2020 6:23 PM CDT COVID-19 Under Investigation 04/21/2021 04/21/2021 2021 6:42 AM CDT documented as of this encounter Care Teams Special Services Agent Relationship Specialty Start Date End Date Ran Nuñez MD [address] [place] [address] PCP - General Family Medicine 03/22/19 12/22/20 Alida Marshall APRN-SIGNAL WORKER [facility] [facility] [place] [address] PCP - General Family Medicine 12/23/20 08/29/21 Ran Nuñez MD [address] [place] [address] PCP - General Family Medicine 08/30/21 [place] [address] [facility] [facility] [place] [address] PCP - Attributed-[facility] 03/04/23 08/21/23 Hillary Apple MD [address] [place] [address] Hematology and Oncology 03/17/19 Bill Ferrera MD [address] [place] [address] Hematology and Oncology 03/17/19 08/27/21 Tony Dumont MD [address] [place] [address] Hematology and Oncology 03/17/19 Maryjo Reinoso, [facility] Senior Qa Tester 03/17/19 Madyson Clay, PharmD 03/17/19 Dana Lala, SUPERVISING FILM OR VIDEOTAPE EDITOR-TRACTOR DISTRIBUTOR [address] [place] [address] [address] [place] [address] Oncology 03/17/19 Tiffanie Nguyen, SUPERVISING FILM OR VIDEOTAPE EDITOR-SIGNAL WORKER [address] [place] [address] [address] [place] [address] Family Medicine 03/17/19 Stephanie Mahoney, RN Registered Nurse 03/17/19 10/29/21 Alycia Galvan, ROSEMARY 03/17/19 10/29/21 Cesar Tavares MD [address] [place] [address] [place] [address] Referring Physician Medical Oncology 03/23/19 Karie Jones, RN Registered Nurse 06/08/19 10/29/21 Joy Bob 09/22/19 Addison Shea, PharmD Pharmacist 09/22/19 10/29/21 Tony Dumont MD [address] [place] [address] Hematology and Oncology 10/30/21 Shalini Segal MD [address] [facility] [place] [address] Installment Loan Collector/Oncologis t Hematology and Oncology 10/30/21 Stefanie Burns, RN Registered Nurse 10/30/21 Fatemeh Bolaños, RN Registered Nurse 10/30/21 Chandana Lu MD [address] [place] [address] Orthopedic Surgery 03/30/24 documented as of this encounter
--- OUTSIDE RECORDS SUMMARY | 2025-06-13 14:51 | XMS_ITS | Encounter Summary ---
Author Organization [facility] Address [address] [facility] [place] [address] Care Team Providers Care Cookie Breaker Name Role Phone Hillary Apple MD Unavailable [phone] Bill Ferrera MD Unavailable [phone] Tony Dumont MD Unavailable [phone] Shalini Segal MD Unavailable [phone] Karie Jones RN Unavailable Unavailable Maryjo Reinoso ENVIRONMENTAL PERMITTING SPECIALIST Unavailable Unavailab Madyson Nicolas PharmD Unavailable Unavailab Dana Key RESPIRATORY THERAPY TECHNICIAN-PLUG DRILL OPERATOR Unavailable + [phone] Tiffanie Nguyen RESPIRATORY THERAPY TECHNICIAN-BINDING CEMENTER FRENCH CORD Unavailable [phone] Stephanie Mahoney RN Unavailable Unavailable Alycia Galvan RN Unavailable UnavailRan Mejía MD Primary Care Provider Cesar Tavares MD Unavailable [phone] Karie Jones RN Unavailable Unavailable Joy Bob Unavailable Fanta Addison Weinstein PharmD Unavailable Unavailab Alida Chang RESPIRATORY THERAPY TECHNICIAN-BINDING CEMENTER FRENCH CORD Primary Care Provider Ran Nuñez MD Primary Care Provider Tony Dumont MD Unavailable [phone] Shalini Segal MD Unavailable [phone] Stefanie Burns RN Unavailable Unavaila Fatemeh Kelly RN Unavailable Unavailable Glenn Hernandez MD Unavailable [phone] Chandana Lu MD Unavailable Reason for Visit * Reason Comments Insurance Issue/question termination of insurance Encounter Details Date Type Department Care Team (Late st Contact Info) Description 09/20/2019 Telephone [facility] [address] [place] [address] Joy Bob Insurance Issue/question (termination of insurance) [...] AM CDT Legal 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 BANANA HANDLER Gender Identity Male 03/27/2022 11:34 AM CDT [...] Entry Date Author No 08/19/2019 10:04 AM BANANA HANDLER Tiara Nguyen RN documented in this encounter Miscellaneous Notes * Telephone Encounter - Joy Bob - 09/20/2019 12:18 PM BANANA HANDLER Called and spoke with Mr. Guillen and discussed the termination of his insurance and find out if he has obtained a different insurance plan. Mr. Guillen stated he was not aware that his plan changed and was recently told. He stated he applied for extermination inspector disability and thought everything was taken care of. He stated [employer] will be the coverage for his extermination inspector disability insurance, but they are waiting on a letter from the Human Resource Department. I asked Mr. Guillen if he spoke with or received any information from the HR Department about COBRA,he stated no. I asked and was giving the HR Department contact number [phone]. I informed Mr. Guillen that he will [...] and Anastasia Nice notified in inactive coverage. NA HANDLER documented in this encounter Plan of Treatment [...] COVID-19 Confirmed 03/06/2020 07/14/2020 0 4:33 AM BANANA HANDLER COVID-19 Under Investigation 03/07/2020 03/07/2020 03/09/2020 8:54 AM CDT COVID-19 Under Investigation 03/29/2020 03/29/2020 03/30/2020 9:42 AM CDT COVID-19 Confirmed 08/31/2020 08/31/2020 4:34 AM BANANA HANDLER COVID-19 Confirmed 09/28/2020 09/28/2020 4:33 AM BANANA HANDLER COVID-19 Under Investigation 11/16/2020 11/16/2020 11/16/2020 6:52 PM CDT COVID-19 Confirmed 11/16/2020 11/16/2020 4:35 AM CDT COVID-19 Under Investigation 12/20/2020 12/20/2020 12/20/2020 6:23 PM CDT COVID-19 Under Investigation 04/21/2021 04/21/2021 2021 6:42 AM CDT documented as of this encounter Care Teams Cookie Breaker Relationship Specialty Start Date End Date Ran Nuñez MD [address] [place] [address] PCP - General Family Medicine 03/22/19 12/22/20 Alida Marshall APRN-BINDING CEMENTER FRENCH CORD [address] [facility] [place] [address] PCP - General Family Medicine 12/23/20 08/29/21 Ran Nuñez MD [address] [place] [address] PCP - General Family Medicine 08/30/21 [place] [address] [facility] [place] [address] PCP - Attributed-[facility] 03/04/23 08/21/23 Hillary Apple MD [address] [place] [address] Hematology and Oncology 03/17/19 Bill Ferrera MD [address] [place] [address] Hematology and Oncology 03/17/19 08/27/21 Tony Dumont MD [address] [place] [address] Hematology and Oncology 03/17/19 Shalini Segal MD [address] [place] [address] Hematology and Oncology 03/17/19 09/29/19 Karie Jones, RN Registered Nurse 03/17/19 09/21/19 Maryjo Reinoso, ENVIRONMENTAL PERMITTING SPECIALIST Higher Education Administrator 03/17/19 Madyson Clay, PharmD 03/17/19 Dana Lala, RESPIRATORY THERAPY TECHNICIAN-PLUG DRILL OPERATOR [address] [place] [address] [address]nd [place] [address] Oncology 03/17/19 Tiffanie Nguyen, RESPIRATORY THERAPY TECHNICIAN-BINDING CEMENTER FRENCH CORD [address] [place] [address] 2nd [place] [address] Family Medicine 03/17/19 Stephanie Mahoney, RN Registered Nurse 03/17/19 10/29/21 Alycia Galvan, RN 03/17/19 10/29/21 Cesar Tavares MD [address] [place] [address] [place] [address] Referring Physician Medical Oncology 03/23/19 Karie Jones, RN Registered Nurse 06/08/19 10/29/21 Joy Bob 09/22/19 Addison Shea, EusebioD Pharmacist 09/22/19 10/29/21 Tony Dumont MD [address] [place] [address] Hematology and Oncology 10/30/21 Shalini Segal MD [address] [facility] [place] [place] [address] Abstract Writer/Oncologis t Hematology and Oncology 10/30/21 Stefanie Burns, RN Registered Nurse 10/30/21 Fatemeh Bolaños RN Registered Nurse 10/30/21 Chandana Lu MD [address] [place] [address] Orthopedic Surgery 03/30/24 documented as of this encounter
--- OUTSIDE RECORDS SUMMARY | 2025-06-13 14:51 | XMS_ITS | Encounter Summary ---
Author Organization [facility] Address [address] [place] [address] Care Team Providers Care Director Internal Control Name Role Phone Hillary Apple MD Unavailable [phone] Bill Ferrera MD Unavailable [phone] Tony Dumont MD Unavailable [phone] Shalini Segal MD Unavailable [phone] Karie Jones RN Unavailable Unavailable Maryjo Reinoso LICENSING COORDINATOR Unavailable Unavailab Madyson Nicolas PharmD Unavailable Unavailab Dana Key SKEIN BLEACHER-MARINE PROPULSION TECHNICIAN Unavailable + [phone] Mckinley SilverC Unavailable Unavail able Patrick, Lara SKEIN BLEACHER-FLIGHT TEST DATA ACQUISITION TECHNICIAN Unavailable [phone] Stephanie Mahoney RN Unavailable Unavailable Alycia Galvan RN Unavailable UnavailRan Mejía MD Primary Care Provider Cesar Tavares MD Unavailable [phone] Karie Jones RN Unavailable Unavailable Joy Bob Unavailable Fanta Addison Weinstein PharmD Unavailable Unavailab Alida Chang SKEIN BLEACHER-FLIGHT TEST DATA ACQUISITION TECHNICIAN Primary Care Provider Ran Nuñez MD Primary Care Provider Tony Dumont MD Unavailable [phone] Shalini Segal MD Unavailable Stefanie Burns RN Unavailable Unavaila Fatemeh Kelly RN Unavailable Unavailable Glenn Hernandez MD Unavailable Chandana Lu MD Unavailable Encounter Details Date Type Department Care Team (Late st Contact Info) Description 03/24/2019 Lab Requisition [facility] Care Pathology Lab [address] [place] [address] Roseline Higgins MD [address] [place] [address] Social History Tobacco Use Types Packs/Day Years Used Date Smoking Tobacco: Never Assessed Sex and Gender Information Value Date Recorded Sex Assigned at Male 03/27/2022 11:34 AM CDT Legal 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 03/25/2019 1:01 PM [facility] at [address] CDT AP Comment [...] testing is required. KR 03/25/2019 1:01 PM [facility] Peripheral Smear Description CBC Data: [...] decreased. Platelet morphology: normal. 03/25/2019 1:01 PM [facility] Bone Marrow Aspirate Differential count [...] (by special stain): decreased. 03/25/2019 1:01 PM [facility] Bone Marrow Core Biopsy and [...] the bone marrow core biopsy in the [facility] Department of Pathology. All controls are [...] and fungal organisms, respectively. 03/25/2019 1:01 PM [facility] Flow Cytometry Summary Concurrent flow cytometry ([id number]) shows involvement by a CD5-negative, [id number] mature B-cell lymphoma. 03/25/2019 1:01 PM [facility] Clinical History 48 year old man with a history of B-cell lymphoma, lymphadenopathy, and splenomegaly, status-post treatment. 03/25/2019 1:01 PM [facility] Materials Received Received are 20 slides and 3 blocks labeled as [id number] along with the outside pathology report. [place] [address]. All materials are returned to the referring institution, along with a copy of our final report. 03/25/2019 1:01 PM [facility] Disclaimer The performance characteristics of all immunohistochemical and indirect immunofluorescence stains (if any) cited in this report were determined by the Histopathology Laboratory of [facility]. Some of these tests were [...] interpretation of this case is performed by [facility] Pathology at [facility], [address] [place] [address]. 03/25/2019 1:01 PM CDT [facility] PATHOLOGY LAB Embedded Images 03/25/2019 1:01 PM CDT [facility] PATHOLOGY LAB Pathology/Cytology SPECIMEN FROM BONE MARROW [...] PATHOLOGY/CYTOLOGY ORDERAB LES Final Result [facility] PATHOLOGY LAB [address] [place] [address], [facility] [phone] documented in this encounter Visit Diagnoses Not [...] Confirmed 03/06/2020 07/14/2020 0 4:33 AM AIRCRAFT LAYOUT WORKER COVID-19 Under Investigation 03/07/2020 03/07/2020 03/09/2020 8:54 AM CDT COVID-19 Under Investigation 03/29/2020 03/29/2020 03/30/2020 9:42 AM CDT COVID-19 Confirmed 08/31/2020 08/31/2020 1 4:34 AM AIRCRAFT LAYOUT WORKER COVID-19 Confirmed 09/28/2020 09/28/2020 1 4:33 AM AIRCRAFT LAYOUT WORKER COVID-19 Under Investigation 11/16/2020 11/16/2020 11/16/2020 6:52 PM CDT COVID-19 Confirmed 11/16/2020 11/16/2020 4:35 AM CDT COVID-19 Under Investigation 12/20/2020 12/20/2020 12/20/2020 6:23 PM CDT COVID-19 Under Investigation 04/21/2021 04/21/2021 2021 6:42 AM CDT documented as of this encounter Care Teams Director Internal Control Relationship Specialty Start Date End Date Ran Nuñez MD [address] [place] [address] PCP - General Family Medicine 03/22/19 12/22/20 Alida Marshall APRN-FLIGHT TEST DATA ACQUISITION TECHNICIAN [address] [facility] [place] [address] PCP - General Family Medicine 12/23/20 08/29/21 Ran Nuñez MD [address] [place] [address] PCP - General Family Medicine 08/30/21 [place] [address] [facility] [place] [address] PCP - Attributed-Stefany [place] 03/04/23 08/21/23 Hillary Apple MD [address] [place] [address] Hematology and Oncology 03/17/19 Bill Ferrera MD [address] [place] [address] Hematology and Oncology 03/17/19 08/27/21 Tony Dumont MD [address] [place] [address] Hematology and Oncology 03/17/19 Shalini Segal MD [address] [place] [address] Hematology and Oncology 03/17/19 09/29/19 Karie Jones, RN Registered Nurse 03/17/19 09/21/19 Maryjo Reinoso, LICENSING COORDINATOR Unix Manager 03/17/19 Madyson Clay, PharmD 03/17/19 Dana Lala, SKEIN BLEACHER-MARINE PROPULSION TECHNICIAN [address] [place] [address] [address]nd [place] [address] Oncology 03/17/19 Mckinley Silver PA-C [address] [place] [address] [address]nd [place] [address] Physician Tubular Splitting Machine Tender 03/17/19 09/08/19 Tiffanie Nguyen, SKEIN BLEACHER-FLIGHT TEST DATA ACQUISITION TECHNICIAN [address] [place] [address] [address] [place] [address] Family Medicine 03/17/19 Stephanie Mahoney, RN Registered Nurse 03/17/19 10/29/21 Alycia Galvan, ROSEMARY 03/17/19 10/29/21 Cesar Tavares MD [address] [place] [address] Referring Physician Medical Oncology 03/23/19 Karie Jones, RN Registered Nurse 06/08/19 10/29/21 Joy Bob 09/22/19 Addison Shea, PharmD Pharmacist 09/22/19 10/29/21 Tony Dumont MD [address] [place] [address] Hematology and Oncology 10/30/21 Shalini Segal MD [address] [facility] [place] [address] Content Editor/Oncologis t Hematology and Oncology 10/30/21 Stefanie Burns, RN Registered Nurse 10/30/21 Fatemeh Bolaños RN Registered Nurse 10/30/21 Chandana Lu MD [address] [place] [address] Orthopedic Surgery 03/30/24 documented as of this encounter
--- OUTSIDE RECORDS SUMMARY | 2025-06-13 14:51 | XMS_ITS | Encounter Summary ---
Author Organization [facility] Address [address] [facility] [place] [address] Care Team Providers Care Coal Tower Operator Name Role Phone Hillary Apple MD Unavailable [phone] Bill Ferrera MD Unavailable [phone] Tony Dumont MD Unavailable [phone] Maryjo Reinoso STEAM SHOVEL OILER Unavailable Unavailab Madyson Nicolas PharmD Unavailable Unavailab Dana Key ORTHOPEDIC TECH-EXECUTIVE CHAIRMAN OF THE BOARD Unavailable + [phone] Tiffanie Nguyen ORTHOPEDIC TECH-STOCK BROKER SUPERVISOR Unavailable [phone] Stephanie Mahoney RN Unavailable Unavailable Alycia Galvan RN Unavailable UnavailRan Mejía MD Primary Care Provider Cesar Tavares MD Unavailable [phone] Karie Jones RN Unavailable Unavailable Joy Bob Unavailable Fanta Addison Weinstein PharmD Unavailable Unavailab Alida Chang ORTHOPEDIC TECH-STOCK BROKER SUPERVISOR Primary Care Provider Ran Nuñez MD Primary Care Provider Tony Dumont MD Unavailable [phone] Shalini Segal MD Unavailable [phone] Stefanie Burns RN Unavailable Unavaila Fatemeh Kelly RN Unavailable Unavailable Glenn Hernandez MD Unavailable Chandana Lu MD Unavailable Encounter Details Date Type Department Care Team (Late st Contact Info) Description 02/10/2020 Telephone [facility] [address] [place] [address] Stephanie Mahoney RN Social History Tobacco Use [...] AM CDT 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 Answer Entry Date Author No 10/13/2019 3:33 PM DOUGLAST Izzy Garcia RN documented in this encounter Miscellaneous Notes * Telephone Encounter - RodStephanie hayward RN - 02/10/2020 10:11 AM CDT Called patient to go over pre-procedure instructions and apt time. Patient did state recent COVID exposure and still having a fever and loose stool as of last night. Notified BMT FIRER DIESEL LOCOMOTIVE Tiffanie and we are going to hold [...] COVID-19 Confirmed 03/06/2020 07/14/2020 0 4:33 AM METAL BENDING MACHINE OPERATOR COVID-19 Under Investigation 03/07/2020 03/07/2020 03/09/2020 8:54 AM CDT COVID-19 Under Investigation 03/29/2020 03/29/2020 03/30/2020 9:42 AM CDT COVID-19 Confirmed 08/31/2020 08/31/2020 1 4:34 AM METAL BENDING MACHINE OPERATOR COVID-19 Confirmed 09/28/2020 09/28/2020 1 4:33 AM METAL BENDING MACHINE OPERATOR COVID-19 Under Investigation 11/16/2020 11/16/2020 11/16/2020 6:52 PM CDT COVID-19 Confirmed 11/16/2020 11/16/2020 1 4:35 AM CDT COVID-19 Under Investigation 12/20/2020 12/20/2020 12/20/2020 6:23 PM CDT COVID-19 Under Investigation 04/21/2021 04/21/2021 2021 6:42 AM CDT documented as of this encounter Care Teams Coal Tower Operator Relationship Specialty Start Date End Date Ran Nuñez MD [address] [place] [address] PCP - General Family Medicine 03/22/19 12/22/20 Alida Marshall APRN-STOCK BROKER SUPERVISOR [address] [facility] [place] [address] PCP - General Family Medicine 12/23/20 08/29/21 Ran Nuñez MD [address] [place] [address] PCP - General Family Medicine 08/30/21 [place] [address] [place] [address] [facility] [place] [facility] 08/21/23 Hillary Apple MD [address] [place] [address] Hematology and Oncology 03/17/19 Bill Ferrera MD [address] [place] [address] Hematology and Oncology 03/17/19 08/27/21 Tony Dumont MD [address] [place] [address] Hematology and Oncology 03/17/19 Maryjo Reinoso, STEAM SHOVEL OILER Integration Developer 03/17/19 Madyson Clay, PharmD 03/17/19 Dana Lala, ORTHOPEDIC TECH-EXECUTIVE CHAIRMAN OF THE BOARD [address] [facility] 2nd [place] [address] Oncology 03/17/19 Tiffanie Nguyen, ORTHOPEDIC TECH-STOCK BROKER SUPERVISOR [address] [facility] [address] [address] Family Medicine 03/17/19 Stephanie Mahoney, RN Registered Nurse 03/17/19 10/29/21 Alycia Galvan, RN 03/17/19 10/29/21 Cesar Tavares MD [address] [place] [address] [place] [address] Referring Physician Medical Oncology 03/23/19 Karie Jones, RN Registered Nurse 06/08/19 10/29/21 Joy Bob 09/22/19 Addison Shea, PharmD Pharmacist 09/22/19 10/29/21 Tony Dumont MD [address] [place] [address] Hematology and Oncology 10/30/21 Shalini Segal MD [address] [facility] [place] [address] Medical Office Receptionist Assistant/Oncologis t Hematology and Oncology 10/30/21 Stefanie Burns, RN Registered Nurse 10/30/21 Fatemeh Bolaños, RN Registered Nurse 10/30/21 Chandana Lu MD [address] [place] [address] Orthopedic Surgery 03/30/24 documented as of this encounter
--- OUTSIDE RECORDS SUMMARY | 2025-06-13 14:51 | XMS_ITS | Encounter Summary ---
Author Organization [facility] Address [address] [facility] [place] [address] Care Team Providers Care Supervisor Cigarette Making Department Name Role Phone Hillary Apple MD Unavailable [phone] Bill Ferrera MD Unavailable [phone] Tony Dumont MD Unavailable [phone] Maryjo Reinoso VIDEO CONFERENCE SPECIALIST Unavailable Unavailab Madyson Nicolas PharmD Unavailable Unavailab Dana Key COW RIDER-LICENSING ENGINEER Unavailable + [phone] Tiffanie Nguyen COW RIDER-PROPULSION MOTOR AND GENERATOR REPAIRER Unavailable [phone] Stephanie Mahoney RN Unavailable Unavailable Alycia Galvan RN Unavailable UnavailRan Mejía MD Primary Care Provider Cesar Tavares MD Unavailable [phone] Karie Jones RN Unavailable Unavailable Joy Bob Unavailable Fanta Addison Weinstein PharmD Unavailable Unavailab Alida Chang COW RIDER-PROPULSION MOTOR AND GENERATOR REPAIRER Primary Care Provider Ran Nuñez MD Primary Care Provider Tony Dumont MD Unavailable [phone] Shalini Segal MD Unavailable [phone] Stefanie Burns RN Unavailable Unavaila Fatemeh Kelly RN Unavailable Unavailable Glenn Hernandez MD Unavailable Chandana Lu MD Unavailable Reason for Visit * Reason Onset Date Comments MEDICATION REFILL 10/01/2020 Encounter Details Date Type Department Care Team (Late st Contact Info) Description 10/01/2020 Refill [facility] [address] [place] [address] Hillary Apple MD [address] [facility] [place] [address] MEDICATION REFILL Social History Tobacco Use Types [...] AM CDT Legal 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 No / Unsure 09/28/2020 1:10 PM DEVELOPMENT GEOLOGIST documented as of this encounter Functional Status [...] Time COVID-19 Confirmed 09/28/2020 09/28/2020 4:33 AM DEVELOPMENT GEOLOGIST COVID-19 Under Investigation 11/16/2020 11/16/2020 11/16/2020 6:52 PM CDT COVID-19 Confirmed 11/16/2020 11/16/2020 4:35 AM CDT COVID-19 Under Investigation 12/20/2020 12/20/2020 12/20/2020 6:23 PM CDT COVID-19 Under Investigation 04/21/2021 04/21/2021 2021 6:42 AM CDT documented as of this encounter Care Teams Supervisor Cigarette Making Department Relationship Specialty Start Date End Date Ran Nuñez MD [address] [place] [address] PCP - General Family Medicine 03/22/19 12/22/20 Alida Marshall APRN-PROPULSION MOTOR AND GENERATOR REPAIRER [facility] [facility] [place] [address] PCP - General Family Medicine 12/23/20 08/29/21 Ran Nuñez MD [address] [place] [address] PCP - General Family Medicine 08/30/21 [place] [address] [facility] [place] [address] PCP - Att[facility] 03/04/23 08/21/23 Hillary Apple MD [address] [place] [address] Hematology and Oncology 03/17/19 Bill Ferrera MD [address] [place] [address] Hematology and Oncology 03/17/19 08/27/21 Tony Dumont MD [address] [place] [address] Hematology and Oncology 03/17/19 Maryjo Reinoso, [facility] Packing Attendant 03/17/19 Madyson Clay, PharmD 03/17/19 Dana Lala, COW RIDER-LICENSING ENGINEER [address] [place] [address] [address] [place] [address] Oncology 03/17/19 Tiffanie Nguyen, COW RIDER-PROPULSION MOTOR AND GENERATOR REPAIRER [address] [place] [address] 2[address] [place] [address] Family Medicine 03/17/19 Stephanie Mahoney, RN Registered Nurse 03/17/19 10/29/21 Alycia Galvan, ROSEMARY 03/17/19 10/29/21 Cesar Tavares MD [address] [place] [address] [place] [address] Referring Physician Medical Oncology 03/23/19 Karie Jones, RN Registered Nurse 06/08/19 10/29/21 Joy Bob 09/22/19 Addison Shea, PharmD Pharmacist 09/22/19 10/29/21 Tony Dumont MD [address] [place] [address] Hematology and Oncology 10/30/21 Shalini Segal MD [address] [facility] [place] [address] Sample Sawyer/Oncologis t Hematology and Oncology 10/30/21 Stefanie Burns, RN Registered Nurse 10/30/21 Fatemeh Bolaños, RN Registered Nurse 10/30/21 Chandana Lu MD [address] [place] [address] Orthopedic Surgery 03/30/24 documented as of this encounter
--- OUTSIDE RECORDS SUMMARY | 2025-06-13 14:51 | XMS_ITS | Clinical Summary ---
Author Organization [facility] Address [address] [facility] [place] [address] Care Team Providers Care Web Support Engineer Name Role Phone Hillary Apple MD Unavailable [phone] Tony Dumont MD Unavailable [phone] Maryjo Reinoso WIENER PACKER Unavailable Unavailab Madyson Nicolas PharmD Unavailable Unavailab Dana Key PADDLE DYEING MACHINE OPERATOR-FRUIT PEELER Unavailable [phone] Tiffanie Nguyen PADDLE DYEING MACHINE OPERATOR-BRICK DROPPER Unavailable [phone] Cesar Tavares MD Unavailable [phone] Joy Bob Unavailable Fanta Ran Augustine MD Primary Care Provider Tony Dumont MD Unavailable [phone] Shalini Segal MD Unavailable [phone] Stefanie Burns RN Unavailable Unavaila Fatemeh Kelly RN Unavailable Unavailable Chandana Lu MD Unavailable [phone] Source Comments [facility],non-owned Affiliates and Associated Physician Practices is amultiple site organization consisting of ambulatory clinics and hospital sitesin [place], [place], [place] and [place]. This disclosure is being madepursuant [...] AM CDT Legal 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 BULK MAIL TECHNICIAN Gender Identity Male 03/27/2022 11:34 AM CDT Sexual Orientation Straight 03/27/2022 11 :34 AM CDT Last Filed Vital Signs Vital Sign Reading Time Taken Comments Blood Pressure 101/70 02/26/2024 8:05 AM CDT Pulse 69 02/26/2024 8:05 AM CDT Temperature 37.2 C (99 F) 06/30/2022 6:32 PM BULK MAIL TECHNICIAN Respiratory Rate 17 02/26/2024 8:05 AM CDT [...] this topic Medical Devices Implanted Type Area Restaurant Associate Device Identifier Shelf Expiration Date Model / Serial / Lot Tray Cath 12fr 23cm Hkmn Trifusion 3 Lum Implanted:Qty: 1 on 09/17/[address] [facility] [employer] 05/03/2021 [id number] / / [id number] Procedures Procedure Name Priority Date/Time Associated Diagnosis Comments COMPREHENSIVE METABOLIC PANEL STAT 08/30/2021 11:36 AM BULK MAIL TECHNICIAN Diffuse large B-cell lymphoma, unspecified body region LIPID PROFILE Routine 08/30/2021 11:36 AM BULK MAIL TECHNICIAN Diffuse large B-cell lymphoma, unspecified body region S/P autologous bone marrow transplantation HEPATITIS C ANTIBODY Routine 09/09/2019 12:42 PM BULK MAIL TECHNICIAN Pre-transplant evaluation for stem cell transplant HIV-1 HIV-2 ANTIGEN/ANTIBODY Routine 03/22/2019 3:00 PM CDT Diffuse large B-cell lymphoma, unspecified body region from Last 3 Months or Most Recently Relevant to Health Maintenance Results * (ABNORMAL) COMPREHENSIVE METABOLIC PANEL (08/30/2021 11:36 AM BULK MAIL TECHNICIAN) BUN 12 7 - 26 mg/dL 08/30/2021 12:10 PM [facility] Creatinine 1.02 0.71 - 1.16 mg/dL 08/30/2021 12:10 PM [facility] Sodium 140 136 - 145 mmol/L 08/30/2021 12:10 PM [facility] Potassium 4.8(H) 3.5 - 4.5 mmol/L 08/30/2021 12:10 PM [facility] Chloride 107 98 - 107 mmol/L 08/30/2021 12:10 PM [facility] CO2 23 22 - 29 mmol/L 08/30/2021 12:10 PM [facility] Glucose 99 70 - 115 mg/dL 08/30/2021 12:10 PM [facility] Calcium 9.4 8.4 - 10.2 mg/dL 08/30/2021 12:10 PM [facility] Protein Total 6.6 6.0 - 8.3 g/dL 08/30/2021 12:10 PM [facility] Albumin 3.9 3.4 - 5.0 g/dL 08/30/2021 12:10 PM [facility] Bilirubin Total 0.4 0.2 - 1.2 mg/dL 08/30/2021 12:10 PM [facility] Alkaline Phosphatase 113 40 - 150 U/L 08/30/2021 12:10 PM [facility] ALT 38 5 - 55 U/L 08/30/2021 12:10 PM [facility] AST 26 5 - 34 U/L 08/30/2021 12:10 PM [facility] Anion Gap 15 8 - 18 08/30/2021 12:10 PM [facility] BUN/Creatinine Ratio 12 7 - 23 08/30/2021 12:10 PM [facility] Osmolality Calculated 290 270 - 300 mOsm/kg 08/30/2021 12:10 PM [facility] Albumin/Globulin Ratio 1.4 1.1 - 2.3 08/30/2021 12:10 PM [facility] eGFR by CKD-EPI 85(L) >=90 mL/min/1.7 3 m2 08/30/2021 12:10 PM [facility] Blood BLOOD SPECIMEN / Unknown Venipuncture / Unknown 08/30/2021 11:36 AM BULK MAIL TECHNICIAN 08/30/2021 11:46 AM [facility] us Tiffanie Nguyen PADDLE DYEING MACHINE OPERATOR-BRICK DROPPER LAB - CHEMISTRY ORDERAB LES Final Result [facility] [address] [place] [address], [facility] [phone] * (ABNORMAL) LIPID PROFILE (08/30/2021 11:36 AM [facility]) Cholesterol Total 207(H) <200 mg/dL 08/30/2021 12:10 PM [facility] HDL 38(L) >40 mg/dL 08/30/2021 12:10 PM [facility] Comment: ATP III Classification of HDL Cholesterol: <40 mg/dL: Considered a major risk factor. >60 mg/dL: Considered a negative risk factor. LDL Calculated 152(H) <100 mg/dL 08/30/2021 12:10 PM [facility] Comment: ATP III Classification of LDL Cholesterol: <100 mg/dL: Optimal 100 - 129 mg/dL: Near Optimal/Above Optimal 130 - 159 mg/dL: Borderline High 160 - 189 mg/dL: High >190 mg/dL: Very High Triglycerides 87 <150 mg/dL 08/30/2021 12:10 PM BULK MAIL TECHNICIAN [facility] Comment: ATP III Classification of Triglycerides: <150 mg/dL: Normal 150 - 199 mg/dL: Borderline High 200 - 400 mg/dL: High >500 mg/dL: Very High Blood BLOOD SPECIMEN / Unknown Venipuncture / Unknown 08/30/2021 11:36 AM BULK MAIL TECHNICIAN 08/30/2021 11:46 AM BULK MAIL TECHNICIAN Tiffanie Nguyen PADDLE DYEING MACHINE [facility] - CHEMISTRY ORDERAB LES Final Result Performing Organization Address City[facility]/ZIP Co de Phone Number [facility] [address] [place] [address], [facility] [phone] * HEPATITIS C ANTIBODY (09/09/2019 12:42 PM BULK MAIL TECHNICIAN) Hepatitis C Antibody Non-react robyn Non-reac tive 09/09/2019 1:46 PM BULK MAIL TECHNICIAN [facility] Comment: Hepatitis C Antibody screen indicates no serologic evidence of past or current infection with Hepatitis C Virus. Patients with unexplained liver disease who are immunocompromised or suspected of having acute Hepatitis C infection may benefit from Nucleic Acid Test (MEL) for Hepatitis C Viral RNA to confirm Hepatitis C status. Blood BLOOD SPECIMEN / Unknown Venipuncture / Unknown 09/09/2019 12:42 PM BULK MAIL TECHNICIAN 09/09/2019 12:51 PM BULK MAIL TECHNICIAN Tiffanie Alvess PADDLE DYEING MACHINE [facility] - CHEMISTRY ORDERAB LES Final Result Performing Organization Address [facility]/ZIP Co de Phone Number [facility] [address] [place] [address], [facility] [phone] * HIV-1 HIV-2 ANTIGEN/ANTIBODY (03/22/2019 3:00 PM CDT) HIV Antigen/Antibod y 1 & 2 Non-reacti ve Non-react robyn 03/22/2019 3:59 PM CDT [facility] Comment: Neither HIV-1 p24 Antigen nor HIV-1/HIV-2 Antibodies are detected. Blood BLOOD SPECIMEN / Unknown Venipuncture / Unknown 03/22/2019 3:00 PM CDT 03/22/2019 3:11 PM CDT Tiffanie Nguyen PADDLE DYEING MACHINE OPERATOR-BRICK DROPPER LAB - HEMATOLOGY ORDERA BLES Final Result [address] [phone] from Last 3 Months or Most Recently Relevant to Health Maintenance Insurance HU[employer]NA MEDICARE ADV HMO & PPO AETNA Advance Directives Documents on File Type Date Recorded Patient Commercial Pilot Expl anation Adv Directive/Living Will/POA 10/27/2019 2:34 [...] 6:25 PM 08/19/2019 4:51 PM Care Teams Web Support Engineer Relationship Specialty Start Date End Date Ran Nuñez MD [address] [place] [address] PCP - General Family Medicine 08/30/21 Hillary Apple MD [address] [place] [address] Hematology and Oncology 03/17/19 Tony Dumont MD [facility] [place] [address] Hematology and Oncology 03/17/19 Maryjo Reinoso, WIENER PACKER Placement Assistant 03/17/19 Madyson Clay, PharmD 03/17/19 Dana Lala, PADDLE DYEING MACHINE OPERATOR-FRUIT PEELER [address] 2[address] [place] [address] Oncology 03/17/19 Tiffanie Nguyen, PADDLE DYEING MACHINE OPERATOR-BRICK DROPPER [address] 2[address] [place] [address] Family Medicine 03/17/19 Cesar Tavares MD [address] [place] [address] Referring Physician Medical Oncology 03/23/19 Joy Bob 09/22/19 Tony Dumont MD [address] [place] [address] Hematology and Oncology 10/30/21 Shalini Segal MD [address] [facility] [place] [address] Ecological Risk Assessor/Oncologist Hematology and Oncology 10/30/21 Stefanie Burns, ROSEMARY Registered Nurse 10/30/21 Fatemeh Bolaños, RN Registered Nurse 10/30/21 Chandana Lu MD [address] [place] [address] Orthopedic Surgery 03/30/24
--- OUTSIDE RECORDS SUMMARY | 2025-06-13 14:51 | XMS_ITS ---
Author Organization [facility] Address [address] [place] [address] Care Team Providers Care Sand Caster Apprentice Name Role Phone Hillary Apple MD Unavailable [phone] Tony Dumont MD Unavailable [phone] Maryjo Reinoso BILLET CHECKER Unavailable Unavailab Madyson Nicolas PharmD Unavailable Unavailab Dana Key FINANCIAL AID COORDINATOR-TOOL GRINDER SET UP OPERATOR GEAR Unavailable [phone] Tiffanie Nguyen FINANCIAL AID COORDINATOR-TRANSFER AGENT Unavailable [phone] Cesar Tavares MD Unavailable [phone] Joy Bob Unavailable Fanta Ran Augustine MD Primary Care Provider Tony Dumont MD Unavailable [phone] Shalini Segal MD Unavailable [phone] Stefanie Burns RN Unavailable Unavaila Fatemeh Kelly RN Unavailable Unavailable Chandana Lu MD Unavailable [phone] Active Problems Problem Noted Date Diagnosed [...] Discontinue Reason Plan Provider Cycles BMT CONDITIONING [id number] SCHEMA A - (BEAM) CARMUSTINE + ETOPOSIDE + CYTARABINE + MELPHALAN 10/13/19 20 08/04/2022 carmustine (BCNU) Infusioncytarabine (Cytosar) Infusionetoposide (Vepesid) 1250 mL infusionmelphalan (Alkeran) infusion Therapy Complete Rafaela Sood APRN-CNP 2 (3 of 3 cycles) started Lifetime Dose Tracking * Chemical Lifetime Dose Automatic Entry Manual Entr y Dose Length Product 8,650.6 mGy-cm 8,650.6 mGy-cm 0 mG y-cm
--- OUTSIDE RECORDS SUMMARY | 2025-06-13 14:51 | XMS_ITS | Encounter Summary ---
Author Organization [facility] Address [address] [facility] [place] [address] Care Team Providers Care Community Planner Name Role Phone Hillary Apple MD Unavailable [phone] Tony Dumont MD Unavailable [phone] Maryjo Reinoso EXTRACORPOREAL CIRCULATION SPECIALIST Unavailable Unavailab Madyson Nicolas PharmD Unavailable Unavailab Dana Key MACHINE ROUGH ROUNDER-SUPERVISOR FINISHING ROOM Unavailable [phone] Tiffanie Nguyen MACHINE ROUGH ROUNDER-ELECTROTYPE FINISHER Unavailable [phone] Cesar Tavares MD Unavailable [phone] Joy Bob Unavailable Fanta Ran Augustine MD Primary Care Provider Tony Dumont MD Unavailable [phone] Shalini Segal MD Unavailable [phone] Stefanie Burns RN Unavailable Unavaila Fatemeh Kelly RN Unavailable Unavailable Glenn Hernandez MD Unavailable [phone] Chandana Lu MD Unavailable [phone] Reason for Visit * Reason Onset Date Comments MEDICATION REFILL 08/13/2023 Encounter Details Date Type Department Care Team (Late st Contact Info) Description 08/13/2023 Refill [facility] [address] [place] [address] Tiffanie Nguyen MACHINE ROUGH ROUNDER-ELECTROTYPE FINISHER [address] [place] [address] MEDICATION REFILL Social History Tobacco Use Types [...] AM CDT 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 Gender Identity Male 03/27/2022 11:34 AM CDT [...] transplant documented in this encounter Care Teams Community Planner Relationship Specialty Start Date End Date Ran Nuñez MD [address] [place] [address] PCP - General Family Medicine 08/30/21 [place] [address] [place] [address] PCP - [facility] 03/04/23 08/21/23 Hillary Apple MD [facility]5 [place] [address] Hematology and Oncology 03/17/19 Tony Dumont MD [facility] [place] [address] Hematology and Oncology 03/17/19 Maryjo Reinoso, EXTRACORPOREAL CIRCULATION SPECIALIST Fixed Income Trading Vice President 03/17/19 Madyson Clay, PharmD 03/17/19 Dana Lala, MACHINE ROUGH ROUNDER-SUPERVISOR FINISHING ROOM [address] [facility] 2nd [place] [address] Oncology 03/17/19 Tiffanie Nguyen, MACHINE ROUGH ROUNDER-ELECTROTYPE FINISHER [address] [facility] 2nd [place] [address] Family Medicine 03/17/19 Cesar Tavares MD [facility] 2nd [place] [address] Referring Physician Medical Oncology 03/23/19 Joy Bob 09/22/19 Tony Dumont MD [address] [place] [address] Hematology and Oncology 10/30/21 Shalini Segal MD [address] [facility] [place] [address] Publication Distributor/Oncologist Hematology and Oncology 10/30/21 Stefanie Burns, RN Registered Nurse 10/30/21 Fatemeh Bolaños RN Registered Nurse 10/30/21 Chandana Lu MD [address] [place] [address] Orthopedic Surgery 03/30/24 documented as of this encounter
--- OUTSIDE RECORDS SUMMARY | 2025-06-13 14:51 | XMS_ITS | Encounter Summary ---
Author Organization [facility] Address [address] [place] [address] Care Team Providers Care Chamber Magistrate Name Role Phone Ran Nuñez MD Primary Care Provider Reason for Visit * Reason Comments Medication Refill Encounter Details Date Type Department Care Team (Late Contact Info) Description 07/17/2019 Refill [facility] Oncology and Hematology Mina Nieves [address] [place] [address] Cesar Tavares MD [address] [employer] [address] [place] [address] Social History Tobacco Use Types Packs/Day [...] Description 10/20/2025 1:15 PM CDT Office Visit [facility] Oncology and Hematology Mina Alexandr [address] [place] [address] Cesar Tavares MD [address] [address] [place] [address] documented as of this encounter Visit Diagnoses Not on filedocumented in this encounter Care Teams Chamber Magistrate Relationship Specialty Start Date End Date Ran Nuñez MD [address] [place] [address] PCP - General Family Practice 08/15/17 documented as of this encounter
--- OUTSIDE RECORDS SUMMARY | 2025-06-13 14:51 | XMS_ITS | Encounter Summary ---
Author Organization [facility] Address [address] [facility] [place] [address] Care Team Providers Care Thickener Operator Name Role Phone Hillary Apple MD Unavailable [phone] Tony Dumont MD Unavailable [phone] Maryjo Reinoso STAVE BLOCK ROLLER Unavailable Unavailab Madyson Nicolas PharmD Unavailable Unavailab Dana Key BPM DEVELOPER-ARCHITECTURAL ADMINISTRATIVE ASSISTANT Unavailable + [phone] Patrick Lara BPM DEVELOPER-CRUISE CONSULTANT Unavailable [phone] Cesar Tavares MD Unavailable [phone] Joy Bob Unavailable Fanta Ran Augustine MD Primary Care Provider Tony Dumont MD Unavailable [phone] Shalini Segal MD Unavailable [phone] Stefanie Burns RN Unavailable Unavaila Fatemeh Kelly RN Unavailable Unavailable Glenn Hernandez MD Unavailable [phone] Chandana Lu MD Unavailable [phone] Reason for Visit * Reason Onset Date Comments MEDICATION REFILL 04/24/2023 Encounter Details Date Type Department Care Team (Late st Contact Info) Description 04/24/2023 Refill [facility] [address] [place] [address] Hillary Apple MD [address] [facility] [place] [place] [address] MEDICATION REFILL Social History Tobacco Use Types [...] AM CDT 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 Gender Identity Male 03/27/2022 11:34 [...] on filedocumented in this encounter Care Teams Thickener Operator Relationship Specialty Start Date End Date Ran Nuñez MD [address] [place] [address] PCP - General Family Medicine 08/30/21 [place] [address] [place] [address] PCP - [facility] 03/04/23 08/21/23 Hillary Apple MD [address] [place] [place] [address] Hematology and Oncology 03/17/[address] [facility] [place] [address] Hematology and Oncology 03/17/19 Maryjo Reinoso, STAVE BLOCK ROLLER Commercial Tire Service Technician 03/17/19 Madyson Clay, PharmD 03/17/19 Dana Lala, BPM DEVELOPER-ARCHITECTURAL ADMINISTRATIVE ASSISTANT [facility] 2[place] [address] Oncology 03/17/19 Tiffanie Nguyen, BPM DEVELOPER-CRUISE CONSULTANT [address] [place], [place] [address]TA [facility] 2[place] [address] Family Medicine 03/17/19 Cesar Tavares MD [address] [place], [place] [address]TA [facility] 2[address] [place] [address] Referring Physician Medical Oncology 03/23/19 Joy Bob 09/22/19 Tony Dumont MD [address] [place] [address] Hematology and Oncology 10/30/21 Shalini Segal MD [address] [place] [address] OF HEMATOLOGY [place] [address] Bulk Coolers Installer/Oncologist Hematology and Oncology 10/30/21 Stefanie Burns, RN Registered Nurse 10/30/21 Fatemeh Bolaños RN Registered Nurse 10/30/21 Chandana Lu MD [address] [facility] [address] [place] [address] Orthopedic Surgery 03/30/24 documented as of this encounter
== END 2025-06-13 14:46 | disposition home or self-care (01) ==
PROVIDERS: PCP Family Medicine; Visit Provider Nurse Practitioner Family
DX: N20.0 Calculus of kidney (principal)
CPT/HCPCS: 76770